=== PATIENT | female | born 1965 | race Caucasian/White ===

== ENCOUNTER 2016-04-03 06:45 | Inpatient (IN) | payer BC, OTHER ==
[~2016-04-03] VITALS: Ht 165.1 cm; Wt 79.0 kg
[~2016-04-03 06:45] MED LIST: DSY100 PO; FIBEPOW PO; FLX5 PO; HMLI SC; Insulin Glargine SC; LCTL45 PO; NVLGIPEN SC; POTA99TA PO
[2016-04-03] MEDS ORDERED: PROCHLORPERAZINE 5 MG/ML 2 ML VIAL IV STA (07:34)
[2016-04-03] MEDS ORDERED: DiphenhydrAMINE HCL 50 MG/ML VIAL IV STA (07:34)
[2016-04-03 07:49] LABS: MEAN CORPUSCULAR HEMOGLOBIN 36.7 pg (25-34); MEAN CORPUSCULAR HGB CONC 36.7 g/dl (32-36)
--- NOTE | 2016-04-03 07:50 | EMERGENCY ROOM VISIT NOTE ---
ED Visit Note First contact with patient: 06:53 This Patient was discussed with the physician horticultural nursery assistant, Chace Pryor PA-C. The pertinent historical and physical exam findings were confirmed. I agree with the studies ordered and with the interpretations of these studies. I agree with the disposition and care plan.
[2016-04-03 07:54] LABS: MEAN PLATELET VOLUME 10.2 fL (7.4-10.4); PLATELET COUNT 55 K/uL (130-400)
[2016-04-03 08:07] LABS: BUN/CREATININE RATIO 28.8 (10-20); CALCIUM 7.8 mg/dl (8.5-10.1); CREATININE 0.74 mg/dl (0.60-1.20); MAGNESIUM 1.9 mg/dl (1.8-2.4); POTASSIUM 3.7 mmol/L (3.5-5.1)
[2016-04-03 08:10] LABS: ALB/GLOB RATIO 1.3 (0.9-2)
[2016-04-03] MEDS ORDERED: COEN150C PO (08:18)
[2016-04-03 08:40] LABS: BASO % 0.7 %; BASO ABS # 0.02 K/uL (0-0.2); COMPLETE YES; EOS % 5.2 %; IG% 0.4 %; LYMPH % 8.1 %; LYMPH ABS # 0.22 K/uL (1.2-3.4); MONO % 6.7 %; NEUT % 78.9 %; VACUOLIZATION 1+
[2016-04-03] MEDS ORDERED: LACTULOSE SYRUP 20 GM/30 ML UDC PO STA (09:31)
[2016-04-03 10:30] VITALS: O2SAT 97; BMI 31.9
[2016-04-03] MEDS ORDERED: ALUMINUM/MAGNESIUM/SIMETH (MAALOX MAX) 30 ML UDC PO PRN (11:15)
[2016-04-03] MEDS ORDERED: GLUCAGON FOR INJ 1 MG VIAL SQ PRN (11:15)
[2016-04-03] MEDS ORDERED: MAGNESIUM HYDROXIDE SUSP 30 ML UDC PO PRN (11:15)
[2016-04-03] MEDS ORDERED: GLUCOSE 10 TABS/TUBE PO PRN (11:15)
[2016-04-03] MEDS ORDERED: POLYETHYLENE (MIRALAX) 17 GM PACK PO PRN (11:15)
[2016-04-03] MEDS ORDERED: CYCLOBENZAPRINE HCL 5 MG TAB PO PRN (11:15)
[2016-04-03] MEDS ORDERED: ONDANSETRON INJ 2 MG/ML 2 ML VIAL IV PRN (11:15)
[2016-04-03] MEDS ORDERED: DEXTROSE 50% 50 ML SYR IV PRN (11:15)
[2016-04-03] MEDS ORDERED: GLUCOSE 40% GEL 15 GM TUBE PO PRN (11:15)
[2016-04-03] MEDS ORDERED: RIFAXIMIN TAB 550 MG TAB PO ONE (11:30)
--- NOTE | 2016-04-03 11:33 | History and Physical ---
History & Physical Date & Time of Service: Apr 03, 2016 at 11:28 Chief Complaint: Nausea,Vomiting,Weakness Primary Care Physician: Mingo Lin M.D. History of Present Illness Source: patient, hospital records Ms. Munson is a 50 y/o female with PMHx of Liver Cirrhosis, Myelodysplastic Syndrome, Seizure Disorder, T2DM, Bipolar Disorder, Hypothyroidism, GERD, HTN, Migraines, S/P Cholecystectomy, and S/P Appendectomy who presents to the ED for vomiting that started at 0500. Patient reports that she felt her normal self prior to going the bed on 04/02/16. She states that around 0500 she started vomiting which then precipitated bilateral lower quadrant tenderness described as cramping in nature. Pain is aggravated by vomiting but has been mildly relieved with Compazine given in ED. Last episode of emesis was in ED and per note was 150 mL of green bile emesis. Ammonia also noted at 263 in ED. She states her last dose of Lactulose was at approx 2000 on 04/02/16 and reports compliance with her BID dosing. She denies taking her AM dose today. Last BM was this AM prior to these symptoms started and was normal in amount and without diarrhea, melena, or hematochezia. She says that she has been having regular bowel movements and denies constipation. Patient is lethargic however speech is coherent and she is oriented to person, place, and time. She is following commands and answers appropriately to questions asked. She reports taking Levaquin approx 7 days ago that was a small course for sinusitis. In the ED, she was hydrated. She was given a dose of Lactulose and Compazine. She will be admitted to telemetry for further evaluation and care. Past Medical/Surgical History Medical Problems: (1) Asthma Status: Chronic (2) Bipol I, Rec Epis (Or Current) Depressed, Unspecified Status: Chronic (3) Cirrhosis Permanent Comment: from nonalcoholic fatty liver disease Status: Chronic (4) Diab Ashley Wo Comp Type Ii Or Nos/Not Uncontrolled Status: Chronic (5) Diabetes Status: Chronic (6) Diabetic gastroparesis Status: Chronic (7) Heart murmur Status: Chronic (8) History of hepatic encephalopathy Status: Chronic (9) Major depressive disorder with psychotic features Permanent Comment: with previous suicide attempts Status: Chronic (10) Migraines Status: Chronic (11) Myelodysplastic syndrome Status: Chronic (12) Pancytopenia Status: Chronic (13) Peptic ulcer disease Status: Chronic (14) Portal Hypertension Status: Chronic (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 Status: Chronic (16) Seizure disorder Permanent Comment: with pseudoseizures Status: Chronic Surgical Problems: (1) H/O nasal septoplasty Status: Chronic (2) History of appendectomy Status: Chronic (3) History of cholecystectomy Status: Chronic (4) History of hysterectomy Status: Chronic (5) History of kyphoplasty Permanent Comment: lumbar Status: Chronic (6) History of tonsillectomy Status: Chronic (7) s/p spinal stimulator placement Status: Chronic Family History Depression Hypertension Social History Smoking Status: Never Smoker Smokeless Tobacco Use: No Alcohol Use: none Drug Use: none Marital Status: Housing status: lives with family Occupational Status: disabled Immunizations History of Influenza Vaccine: Yes Influenza Vaccine Date: Feb 02, 2013 History of Tetanus Vaccine?: utd Tetanus Immunization Date: Jun 11, 2008 History of Pneumococcal: SEE LAST PACKET Pneumococcal Date: Nov 13, 2008 History of Hepatitis B Vaccine: Unknown Hepatitis Immunization Date: Jan 12, 1996 Multi-Drug Resistant Organisms History of MDRO: No Allergies Coded Allergies: Amoxicillin (Verified Allergy, Intermediate, HIVES, 04/03/16) Azithromycin (Verified Allergy, Intermediate, HIVES, 04/03/16) Baclofen (Verified Allergy, Intermediate, RASH, 04/03/16) Butalbital (Verified Allergy, Intermediate, HIVES, 04/03/16) Clarithromycin (Verified Allergy, Intermediate, RASH, 04/03/16) Dicyclomine (Verified Allergy, Intermediate, HIVES, 04/03/16) HIVES Penicillins (Verified Allergy, Intermediate, RASH, 04/03/16) PT STATES SHE GETS WELTS FROM CIPRO,LEVAQUIN ALLERGY PER DR ROBLES Tetracyclines (Verified Allergy, Intermediate, DOXYCYCLINE-HIVES, 04/03/16) Sulindac (Verified Allergy, Mild, ALLERGY LISTED "CLONDORAL"--HIVES, 04/03/16) Adhesives (Verified Allergy, Unknown, RASH, DUODERM=RED,ITCHY, 04/03/16) PLASTIC TAPE IS OK!!! DUODERM=RED,ITCHY Clindamycin (Verified Allergy, Unknown, HIVES, 04/03/16) Metronidazole (Verified Allergy, Unknown, SEIZURE, 04/03/16) Metoclopramide (Verified Adverse Reaction, Severe, SEIZURES, 04/03/16) Furosemide (Verified Adverse Reaction, Unknown, HIVES, 04/03/16) Home Medications Scheduled Ascorbic Acid (Vitamin C), 1 TAB PO DAILY Coenzyme Q10 (Ubidecarenone) (Co Q-10), 150 MG PO DAILY Cranberry-Vitamin C-Vitamin E (Cranberry), 1 CAP PO TID Ferrous Sulfate (Ferrous Sulfate), 325 MG PO DAILY Fluticasone Propionate (Fluticasone Propionate), 1-2 SPRAYS ABRAHAN BID Insulin Lispro (Humalog), 1 DOSE SC UD Lactulose (Lactulose), 30 GM PO BID Lecithin (Lecithin), 1 CAP PO DAILY Levetiracetam (Levetiracetam), 1,500 MG PO BID Levothyroxine Sodium (Levothyroxine Sodium), 75 MCG PO DAILY Magnesium Oxide (Mag-Ox), 400 MG PO TID Multiple Vitamin (Multivitamin), 1 TABLET PO DAILY Omeprazole (Prilosec), 20 MG PO DAILY Oxcarbazepine (Trileptal), 600 MG PO BID Potassium (Potassium), 99 MG PO DAILY Probiotic Product (Probiotic), 1 CAP PO DAILY Ranitidine HCl (Ranitidine HCl), 150 MG PO BID Rifaximin (Xifaxan), 550 MG PO BID Sertraline (Zoloft), 125 MG PO DAILY Sulfacetamide Sodium (Ophth) (Bleph-10), 2 DROPS OPB TID Topiramate (Topiramate), 25 MG PO BID Trazodone HCl (Trazodone HCl), 300 MG PO HS Triamterene/Hctz (Triamterene/Hctz 37.5-25MG), 1 TAB PO DAILY Vitamin A ([id number]), 10,000 INTER.UNIT PO DAILY Zinc Gluconate (Zinc), 50 MG PO BID [Insulin Glargine], 35 UNIT SC DAILY Scheduled PRN Cyclobenzaprine HCl (Cyclobenzaprine HCl), 5 MG PO BID PRN for back pain Epinephrine (Epipen), 0.3 MG IM UD PRN for ALLERGIC REACTION Glucose-Vitamin C (Glucose), 1 CHW PO UD PRN for Hypoglycemia Prochlorperazine Maleate (Compazine), 10 MG PO Q8 PRN for Nausea or Vomiting Rizatriptan Benzoate (Rizatriptan Benzoate), 10 MG PO UD PRN for Headache Review of Systems Constitutional: + weakness (generalized), No chills, No fever, No sweats Eyes: No worsening of vision ENT: No nasal symptoms, No sore throat, No trouble swallowing Respiratory: No cough, No shortness of breath Cardiovascular: No chest pain Abdomen: + pain, + vomiting, No constipation, No diarrhea, No nausea Musculoskeletal: No calf pain, No swelling Genitourinary - Female: No dysuria Endocrine: No fatigue Integumentary: No itch, No rash Physical Exam Vital Signs Date Time Temp Pulse Resp B/P Pulse Ox O2 Delivery O2 Flow Rate FiO2 04/03/16 10:30 97 Room Air 04/03/16 09:54 110 18 129/73 97 Room Air 04/03/16 08:55 94 20 169/144 100 Room Air 04/03/16 06:47 36.9 107 17 110/65 96 Room Air General Appearance: WD/WN, no apparent distress, + pertinent finding (drowsy but speech coherent and answers and follows questions/commands easily) Head: normocephalic, atraumatic Eyes: PERRL, EOMI, sclerae normal ENT: hearing grossly normal Neck: supple, no JVD, trachea midline Respiratory/Chest: lungs clear, normal breath sounds, no respiratory distress, no accessory muscle use, + pertinent finding (Port in R chest without evidence of infection) Cardiovascular: regular rate, rhythm, no gallop, no murmur Abdomen/GI: normal bowel sounds, soft, + tenderness (bilateral lower quadrant tenderness without guarding) Extremities/Musculoskelatal: no calf tenderness, no pedal edema Neurologic/Psych: alert (but lethargic), oriented x 3 Skin: normal color, warm/dry, no rash Diagnostics Laboratory Results Results Past 24 Hours Test 04/03/16 07:30 04/03/16 07:35 04/03/16 07:40 Range/Units White Blood Count 2.70 4.8-10.8 K/uL Red Blood Count 3.30 4.2-5.4 M/uL Hemoglobin 12.1 12.0-16.0 g/dL Hematocrit 33.0 37-47 % Mean Corpuscular Volume 100.0 80-100 fL Mean Corpuscular Hemoglobin 36.7 25-34 pg Mean Corpuscular Hemoglobin Concent 36.7 32-36 g/dl Platelet Count 55 130-400 K/uL Mean Platelet Volume 10.2 7.4-10.4 fL Neutrophils (%) (Auto) 78.9 % Lymphocytes (%) (Auto) 8.1 % Monocytes (%) (Auto) 6.7 % Eosinophils (%) (Auto) 5.2 % Basophils (%) (Auto) 0.7 % Neutrophils # (Auto) 2.13 1.4-6.5 K/uL Lymphocytes # (Auto) 0.22 1.2-3.4 K/uL Monocytes # (Auto) 0.18 0.11-0.59 K/uL Eosinophils # (Auto) 0.14 0-0.5 K/uL Basophils # (Auto) 0.02 0-0.2 K/uL RDW Standard Deviation 46.8 36.4-46.3 fL RDW Coefficient of Variation 12.8 11.5-14.5 % Immature Granulocyte % (Auto) 0.4 % Immature Granulocyte # (Auto) 0.01 0.00-0.02 K/uL Toxic Vacuolation 1+ Sodium Level 143 136-145 mmol/L Potassium Level 3.7 3.5-5.1 mmol/L Chloride Level 108 98-107 mmol/L Carbon Dioxide Level 25 21-32 mmol/L Anion Gap 10.0 3-11 mmol/L Blood Urea Nitrogen 21 7-18 mg/dl Creatinine 0.74 0.60-1.20 mg/dl Est Creatinine Clear Calc Drug Dose 99.1 ml/min Estimated GFR () 109.5 Estimated GFR (Non- 94.5 BUN/Creatinine Ratio 28.8 10-20 Random Glucose 123 70-99 mg/dl Calcium Level 7.8 8.5-10.1 mg/dl Magnesium Level 1.9 1.8-2.4 mg/dl Total Bilirubin 1.7 0.2-1 mg/dl Aspartate Amino Transf (AST/SGOT) 45 15-37 U/L Alanine Aminotransferase (ALT/SGPT) 36 12-78 U/L Alkaline Phosphatase 162 45-117 U/L Total Protein 5.7 6.4-8.2 gm/dl Albumin 3.2 3.4-5.0 gm/dl Globulin 2.5 2.5-4.0 gm/dl Albumin/Globulin Ratio 1.3 0.9-2 Lipase 63 73-393 U/L Ammonia 263.0 11-32 umol/L Influenza Type A Antigen Neg for Influ A NEG Influenza Type B Antigen Neg for Influ B NEG Diagnostic Radiology PA CHEST RADIOGRAPH AND UPRIGHT AND SUPINE AP RADIOGRAPHS OF THE ABDOMEN CLINICAL HISTORY: Evaluate for bowel obstruction. COMPARISON STUDY: Chest radiograph and abdominal series February 16, 2016. FINDINGS: A right internal jugular [id number] remains in place. An electronic device projects over the left hemithorax. Cardiomediastinal silhouette is normal. There is no pneumothorax or pleural effusion. There is no evidence of pulmonary edema. No consolidation is identified. There is no free air. There are cholecystectomy clips. Note is made of moderate gaseous distention of the stomach. A few loops of mildly dilated small bowel are noted. There is gas within portions of the colon and rectum. IMPRESSION: 1. A few loops of mildly dilated small bowel. The findings are nonspecific although not highly suggestive of a small bowel obstruction. 2. Moderate gaseous distention of the stomach. 3. No acute cardiopulmonary findings. Impression Assessment and Plan Ms. Munson is a 50 y/o female with PMHx of Liver Cirrhosis, Myelodysplastic Syndrome, Seizure Disorder, T2DM, Bipolar Disorder, Hypothyroidism, GERD, HTN, Migraines, S/P Cholecystectomy, and S/P Appendectomy who presents to the ED for vomiting that started at 0500. Hepatic Encephalopathy 2/2 Liver Cirrhosis - Hyperammonemia: - Patient with leukopenia that is mildly reduced from baseline - bacterial infection dose not seem likely but will R/O urine as source in setting of previous UTIs but patient is asymptomatic in regards to urinary symptoms; this may be a viral gastroenteritis vs medication non-compliance vs symptoms related to chronic liver cirrhosis - Imaging and Studies -- Ammonia - 263 -- Abd XR/CXR - report and image reviewed - few loops of mildly dilated small bowel not highly suggestive of SBO; moderate gastric distention; no acute cardiopulmonary findings - 1/2 NSS at 100 mL/hr - Lactulose 30 g TID -- Will continue to trend ammonia levels - Rifaxamin 550 mg BID - will give dose now as AM dose missed T2DM: - Patient reports Toujeo 40 units at home - Will initiate Lantus 35 units SC daily as reduce dose for interchange - SSI - goal 100-150 with correction factor 35 - Accu-Checks HTN: - Continue Triamterene/HCTZ 1 tab PO daily Seizure Disorder: - Continue Keppra 1500 mg BID - Continue Trileptal 600 mg PO BID Migraine: - Continue Topamax 25 mg PO BID Bipolar disorder: - Continue Trazodone 300 mg HS Anemia 2/2 Myelodysplastic Syndrome: - Ferrous Sulfate 325 mg PO daily - Continue to trend CBC DVT prophylaxis: - MIRYAM/SCDs - Will withhold chemical prophylaxis in setting of thrombocytopenia 2/2 Myelodysplastic syndrome Code Status: - FULL RESUSCITATION Level of Care Telemetry Advanced Directives Existing Advance Directive: No Existing Living Will: No Existing Power of Custom Protection Officer: No Resuscitation Status FULL RESUSCITATION VTE Prophylaxis VTE Risk Assessment Done? Y/N: Yes Risk Level: Moderate Given or contraindicated: T.E.D. Stockings, SCD's Note Attending Admission Note & Attestation: Pt seen/examined, chart reviewed, and care plan d/w GHULAM Deleon. I agree with the tai components of her admission documentation. 50yo female with cirrhosis 2nd to STEVE, recurrent episodes of hepatic encephalopathy requiring hospital admission (due to noncompliance), T2DM, bipolar disorder - presenting with the acute onset of emesis starting this AM along with abdominal pain. While in the ER she had an episode of emesis that was described as bilious. She has had stool earlier today at home, and had a small BM once admitted to the floor. During my personal assessment she is groggy but otherwise awake, oriented x 3, and can answer all questions. She complains of very mild abdominal discomfort. Denies any further nausea/emesis. Lastly, admission labs show markedly elevated ammonia of >200. PMH, PSH, allergies, meds, sochx, famhx, ros - reviewed vitals - tachy, BP normal, afebrile gen - modestly groggy but awake, oriented, looks very dehydrated mouth - severely dry MM, no thrush neck - no JVD heart - tachy, s1, s2, 2/6 systolic murmur LUSB lungs - CTA b/l abd - mild distension, BS+, NT, spleen tip palpable, no hepatomegaly ext - no edema neuro - severe tremors, pill rolling; asterixis noted labs - pancytopenia BUN 21 ammonia 263 mildly abnormal LFTs rapid flu negative abd x-rays with mildly dilated loops of bowel but air to the rectum (left-sided stool and stool in the rectum) A/P: 1. bilious emesis 2. dehydration 3. hepatic encephalopathy 4. cirrhosis 2nd to STEVE 5. bipolar disorder 6. T2DM keep NPO CT abd/pelvis w/ contrast - r/o obstruction hydrate with NS treat hepatic encephalopathy with lactulose + rifaximin continue bipolar meds if no obstruction on CT then start clear liquid diet total visit time 70 minutes Sammy Haney MD
--- NOTE | 2016-04-03 13:35 | DIAGNOSTIC IMAGING REPORT ---
PA CHEST RADIOGRAPH AND UPRIGHT AND SUPINE AP RADIOGRAPHS OF THE ABDOMEN CLINICAL HISTORY: Evaluate for bowel obstruction. COMPARISON STUDY: Chest radiograph and abdominal series February 16, 2016. FINDINGS: A right internal jugular [id number] remains in place. An electronic device projects over the left hemithorax. Cardiomediastinal silhouette is normal. There is no pneumothorax or pleural effusion. There is no evidence of pulmonary edema. No consolidation is identified. There is no free air. There are cholecystectomy clips. Note is made of moderate gaseous distention of the stomach. A few loops of mildly dilated small bowel are noted. There is gas within portions of the colon and rectum. IMPRESSION: 1. A few loops of mildly dilated small bowel. The findings are nonspecific although not highly suggestive of a small bowel obstruction. 2. Moderate gaseous distention of the stomach. 3. No acute cardiopulmonary findings. Electronically signed by: Rolan Chan M.D. 04/03/2016 1:34 PM
[2016-04-03] MEDS ORDERED: INSULIN GLARGINE SOLOSTAR 100 UNITS/ML 3 ML PEN SC SCH (14:00)
[2016-04-03 14:32] VITALS: BP 118/73; PULSE 85; TEMP 37.4; O2SAT 97
[2016-04-03] MEDS: INSULIN ASPART 100 UNITS/ML 3 ML PEN SC SCH ×2 (17:15→21:00)
[2016-04-03] MEDS: LACTULOSE SYRUP 30 GM/45 ML UDP PO SCH ×2 (17:27→20:54)
[2016-04-03] MEDS: SODIUM CHLORIDE 0.45% 1000ML 1,000 ML IV SCH (17:27)
[2016-04-03] MEDS: MAGNESIUM OXIDE 400 MG TAB PO SCH ×2 (17:27→20:55)
[2016-04-03] MEDS ORDERED: OPTIRAY 320 IV PRN (19:00)
--- NOTE | 2016-04-03 19:27 | DIAGNOSTIC IMAGING REPORT ---
ABDOMEN AND PELVIS CT WITH IV AND ORAL CONTRAST CT DOSE: 1378.78 mGy.cm HISTORY: Nausea. Vomiting. bilious emesis, h/o gastroparesis, eval for SBO TECHNIQUE: Multiaxial CT images of the abdomen and pelvis were performed following the use of intravenous and oral contrast. COMPARISON STUDY: 06/01/2015 FINDINGS: Lung bases are clear. Clavicle early hepatic cirrhosis. Cholecystectomy. Pancreas is uniform. Several prominent upper and mid abdominal varices. This may be secondary to portal hypertension. Bowel pattern is nonobstructive. No evidence for pneumatosis. Mild splenomegaly. Kidneys enhance uniformly. No evidence for hydronephrosis. IMPRESSION: 1. Nonobstructive bowel pattern. 2. Multiple abdominal varices most likely secondary to portal hypertension. 3. Prior cholecystectomy. 4. Early hepatic cirrhotic change with mild splenomegaly Electronically signed by: Kenroy Yates M.D. 04/03/2016 7:25 PM
[2016-04-03 19:59] VITALS: BP 119/71; PULSE 89; TEMP 38; O2SAT 95
[2016-04-03 20:00] VITALS: O2SAT 95
--- NOTE | 2016-04-03 20:03 | EMERGENCY ROOM VISIT NOTE ---
History First contact with patient: 06:56 Chief Complaint: NAUSEA Stated Complaint: HYPERAMMANEMIA Nursing Triage Summary: Pt has been vomiting since 5am today and then developed abd pain. Denies urinary or bowel trouble. History of Present Illness The patient is a 50 year old female who presents to the Emergency Room via private vehicle coming by with complaints of "nausea, vomiting, weakness ankle. The patient has a history of elevated ammonia levels and takes lactulose on a daily basis. She states that today around 5 AM she began vomiting and since then has vomited roughly 12 times. Shortly after that she developed pain in the periumbilical to epigastric region that is associated with the vomiting. There is back pain over the patient states this is not new. Patient states that he had similar symptoms a few days ago but does not believe these are related. Patient denies having similar symptoms to this in the past. The patient did not take her medication yet today. The patient rates the abdominal pain as an 8/10. The patient was able to ambulate here with some help. There is associated diarrhea and vomiting as well as sinus congestion. There is also associated chills. Patient denies blood in the vomit , fevers, headache, chest pain, shortness of breath, dysuria, unilateral weakness or body aches. The patient does have a port which she uses for infusion. Review of Systems A complete 10-point Review of Systems was discussed with the patient, with pertinent positives and negatives listed in the History of Present Illness. All remaining Review of Systems questions can be considered negative unless otherwise specified. 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 (17) Seizure disorder Surgical Problems: (1) H/O nasal septoplasty (2) History of appendectomy (3) History of cholecystectomy (4) History of hysterectomy (5) History of kyphoplasty (6) History of tonsillectomy (7) s/p spinal stimulator placement Family History Depression Hypertension Patient is unsure, noting that she was adopted at 6 weeks of age Social History Smoking Status: Never Smoker Smokeless Tobacco Use: No Alcohol Use: none Drug Use: none Marital Status: Housing Status: lives with significant other Occupation Status: disabled Social History: Patient lives at home with Current/Historical Medications Scheduled Ascorbic Acid (Vitamin C), 1 TAB PO DAILY Coenzyme Q10 (Ubidecarenone) (Co Q-10), 150 MG PO DAILY Cranberry-Vitamin C-Vitamin E (Cranberry), 1 CAP PO TID Ferrous Sulfate (Ferrous Sulfate), 325 MG PO DAILY Fluticasone Propionate (Fluticasone Propionate), 1-2 SPRAYS ABRAHAN BID Insulin Lispro (Humalog), 1 DOSE SC UD Lactulose (Lactulose), 30 GM PO BID Lecithin (Lecithin), 1 CAP PO DAILY Levetiracetam (Levetiracetam), 1,500 MG PO BID Levothyroxine Sodium (Levothyroxine Sodium), 75 MCG PO DAILY Magnesium Oxide (Mag-Ox), 400 MG PO TID Multiple Vitamin (Multivitamin), 1 TABLET PO DAILY Omeprazole (Prilosec), 20 MG PO DAILY Oxcarbazepine (Trileptal), 600 MG PO BID Potassium (Potassium), 99 MG PO DAILY Probiotic Product (Probiotic), 1 CAP PO DAILY Ranitidine HCl (Ranitidine HCl), 150 MG PO BID Rifaximin (Xifaxan), 550 MG PO BID Sertraline (Zoloft), 125 MG PO DAILY Sulfacetamide Sodium (Ophth) (Bleph-10), 2 DROPS OPB TID Topiramate (Topiramate), 25 MG PO BID Trazodone HCl (Trazodone HCl), 300 MG PO HS Triamterene/Hctz (Triamterene/Hctz 37.5-25MG), 1 TAB PO DAILY Vitamin A ([id number]), 10,000 INTER.UNIT PO DAILY Zinc Gluconate (Zinc), 50 MG PO BID [Insulin Glargine], 35 UNIT SC DAILY Scheduled PRN Cyclobenzaprine HCl (Cyclobenzaprine HCl), 5 MG PO BID PRN for back pain Epinephrine (Epipen), 0.3 MG IM UD PRN for ALLERGIC REACTION Glucose-Vitamin C (Glucose), 1 CHW PO UD PRN for Hypoglycemia Prochlorperazine Maleate (Compazine), 10 MG PO Q8 PRN for Nausea or Vomiting Rizatriptan Benzoate (Rizatriptan Benzoate), 10 MG PO UD PRN for Headache Allergies Coded Allergies: Amoxicillin (Verified Allergy, Intermediate, HIVES, 04/03/16) Azithromycin (Verified Allergy, Intermediate, HIVES, 04/03/16) Baclofen (Verified Allergy, Intermediate, RASH, 04/03/16) Butalbital (Verified Allergy, Intermediate, HIVES, 04/03/16) Clarithromycin (Verified Allergy, Intermediate, RASH, 04/03/16) Dicyclomine (Verified Allergy, Intermediate, HIVES, 04/03/16) HIVES Penicillins (Verified Allergy, Intermediate, RASH, 04/03/16) PT STATES SHE GETS WELTS FROM CIPRO,LEVAQUIN ALLERGY PER DR ROBLES Tetracyclines (Verified Allergy, Intermediate, DOXYCYCLINE-HIVES, 04/03/16) Sulindac (Verified Allergy, Mild, ALLERGY LISTED "CLONDORAL"--HIVES, 04/03/16) Adhesives (Verified Allergy, Unknown, RASH, DUODERM=RED,ITCHY, 04/03/16) PLASTIC TAPE IS OK!!! DUODERM=RED,ITCHY Clindamycin (Verified Allergy, Unknown, HIVES, 04/03/16) Metronidazole (Verified Allergy, Unknown, SEIZURE, 04/03/16) Metoclopramide (Verified Adverse Reaction, Severe, SEIZURES, 04/03/16) Furosemide (Verified Adverse Reaction, Unknown, HIVES, 04/03/16) Physical Exam Vital Signs Date Time Temp Pulse Resp B/P Pulse Ox O2 Delivery O2 Flow Rate FiO2 04/03/16 10:30 97 Room Air 04/03/16 09:54 110 18 129/73 97 Room Air 04/03/16 08:55 94 20 169/144 100 Room Air 04/03/16 06:47 36.9 107 17 110/65 96 Room Air Pain Rating (0-10): 0 Physical Exam VITAL SIGNS - Vital signs and nursing notes were reviewed. Patient is afebrile , not hypertensive, slightly tachycardic at a rate of 107 beats per minute, and saturating well on room air at 96 bpm. GENERAL -50-year-old female appearing her stated age who is in no acute distress. Communicates well with provider and answers questions appropriately. SKIN - Without rashes. HEAD - NC/AT. EYES - PERRL with EOMI bilaterally. Sclera anicteric. Palpebral conjunctiva pink and moist with no injection noted. EARS - No deformities of external structures noted on gross examination bilaterally. NOSE - Midline and without cyanosis. No epistaxis or purulent drainage noted. Septum midline without deviation or septal hematoma noted. MOUTH/OROPHARYNX - Without perioral cyanosis. Buccal mucosa pink and moist and without leukoplakia. Tongue midline with equal elevation of palate bilaterally. No tonsillar hypertrophy, erythema, or exudates noted. NECK - Neck with FROM. Supple to palpation. No lymphadenopathy noted. No nuchal rigidity. LUNGS - Chest wall symmetric without accessory muscle use, intercostals retractions, or central cyanosis. Normal vesicular breath sounds CTA B/L. No wheezes, rales, or rhonchi appreciated. CARDIAC - RRR with S1/S2. No murmur, rubs, or gallops appreciated. ABDOMEN - Abdominal contour without pulsations or visible masses. BS normoactive all four quadrants. There is minimal tenderness to the epigastric/ . The local region No palpable masses, hepatosplenomegaly, or ascites noted. The abdomen is soft and nonrigid. EXTREMITIES - No clubbing or peripheral cyanosis. No pretibial edema present. + 5/5 strength noted in UE/LE bilaterally. NEUROLOGIC - Cranial nerves II through XII grossly intact. Sensory intact to light touch throughout. PSYCH - patient is alert and oriented. Pt is very pleasant and interacts well with examiner. Medical Decision & Procedures Laboratory Results 04/03/16 07:30 Red Blood Count 3.30, Mean Corpuscular Volume 100.0, Mean Corpuscular Hemoglobin 36.7, Mean Corpuscular Hemoglobin Concent 36.7, Mean Platelet Volume 10.2, Neutrophils (%) (Auto) 78.9, Lymphocytes (%) (Auto) 8.1, Monocytes (%) ( Auto) 6.7, Eosinophils (%) (Auto) 5.2, Basophils (%) (Auto) 0.7, Neutrophils # ( Auto) 2.13, Lymphocytes # (Auto) 0.22, Monocytes # (Auto) 0.18, Eosinophils # ( Auto) 0.14, Basophils # (Auto) 0.02 04/03/16 07:30 Test 04/03/16 07:30 04/03/16 07:40 White Blood Count 2.70 K/uL (4.8-10.8) Red Blood Count 3.30 M/uL (4.2-5.4) Hemoglobin 12.1 g/dL (12.0-16.0) Hematocrit 33.0 % (37-47) Mean Corpuscular Volume 100.0 fL (80-100) Mean Corpuscular Hemoglobin 36.7 pg (25-34) Mean Corpuscular Hemoglobin Concent 36.7 g/dl (32-36) Platelet Count 55 K/uL (130-400) Mean Platelet Volume 10.2 fL (7.4-10.4) Neutrophils (%) (Auto) 78.9 % Lymphocytes (%) (Auto) 8.1 % Monocytes (%) (Auto) 6.7 % Eosinophils (%) (Auto) 5.2 % Basophils (%) (Auto) 0.7 % Neutrophils # (Auto) 2.13 K/uL (1.4-6.5) Lymphocytes # (Auto) 0.22 K/uL (1.2-3.4) Monocytes # (Auto) 0.18 K/uL (0.11-0.59) Eosinophils # (Auto) 0.14 K/uL (0-0.5) Basophils # (Auto) 0.02 K/uL (0-0.2) RDW Standard Deviation 46.8 fL (36.4-46.3) RDW Coefficient of Variation 12.8 % (11.5-14.5) Immature Granulocyte % (Auto) 0.4 % Immature Granulocyte # (Auto) 0.01 K/uL (0.00-0.02) Toxic Vacuolation 1+ Anion Gap 10.0 mmol/L (3-11) Est Creatinine Clear Calc Drug Dose 99.1 ml/min Estimated GFR () 109.5 Estimated GFR (Non- 94.5 BUN/Creatinine Ratio 28.8 (10-20) Calcium Level 7.8 mg/dl (8.5-10.1) Magnesium Level 1.9 mg/dl (1.8-2.4) Total Bilirubin 1.7 mg/dl (0.2-1) Aspartate Amino Transf (AST/SGOT) 45 U/L (15-37) Alanine Aminotransferase (ALT/SGPT) 36 U/L (12-78) Alkaline Phosphatase 162 U/L (45-117) Total Protein 5.7 gm/dl (6.4-8.2) Albumin 3.2 gm/dl (3.4-5.0) Globulin 2.5 gm/dl (2.5-4.0) Albumin/Globulin Ratio 1.3 (0.9-2) Lipase 63 U/L (73-393) Influenza Type A Antigen Neg for Influ A (NEG) Influenza Type B Antigen Neg for Influ B (NEG) Medications Administered Medications (Trade) Dose Ordered Sig/Danita Route Start Time Stop Time Status Last Admin Dose Admin Prochlorperazine Edisylate (Compazine Inj) 10 mg NOW STAT IV 04/03/16 07:34 04/03/16 07:35 DC 04/03/16 07:48 10 MG Diphenhydramine HCl (Benadryl Inj) 25 mg NOW STAT IV 04/03/16 07:34 04/03/16 07:35 DC 04/03/16 07:48 25 MG Lactulose (Chronulac Syrup) 30 gm NOW STAT PO 04/03/16 09:31 04/03/16 09:34 DC 04/03/16 09:53 30 GM Medical Decision Patient was seen and evaluated as above. After obtaining a thorough history and physical examination port was accessed and a CBC, CMP, flu swab was obtained secondary to subjective and objective examination findings. I was concerned that the patient had elevated ammonia levels as they were previously hospitalized for such. The patient was provided with 10 mg of Compazine and 25 mg of Benadryl for her nausea. She indicated that she typically feels better after Compazine. There is a decreased white blood cell count at 2.70 as well as decreased red blood cell count at 3.30. Hematocrit was also low at 33. Hemoglobin is stable at 12.1. Platelet count is low at 55. Patient's chloride was elevated at 108, and BUN was high at 21. Glucose was 123 and calcium was low at 7.8. Patient's alkaline phosphatase was elevated at 162 with a concerning ammonia level of 263. Due to the elevated ammonia level, that appeared to be the highest the patient had experienced in quite some time I did feel she could benefit from inpatient treatment. I did discuss the case with my attending, and the patient was given 30 mg by mouth of lactulose. This was given as a syrup and mixed with apple juice as per the patient's request. Flu swab was negative. I suspect the patient is experiencing hyperammonemia as this is her most recent diagnosis and with clinical correlation and lab values this is most likely at this time. I did discuss the case with the hospitalist at 9:58 AM. Patient will be admitted for further evaluation and management. Please refer to further hospital documentation regarding her stay. In the evaluation and treatment of this patient the following differential diagnoses were entertained: hyperammonemia, pancreatitis, small bowel obstruction, acute gastroenteritis, among others. Impression Primary Impression: Hyperammonemia Additional Impressions: Leukopenia, Anemia, Alkaline phosphatase elevation Departure Information Dispostion Admitted as an inpatient Condition FAIR Referrals Mingo Lin M.D. (PCP) Forms HOME CARE DOCUMENTATION FORM, IMPORTANT VISIT INFORMATION Patient Instructions A Signature Page, My [facility]
[2016-04-03] MEDS: FLUTICASONE PROPIONATE NA SPR 16 GM BTL NAE SCH (20:53)
[2016-04-03] MEDS: TRAZODONE HCL 100 MG TAB PO SCH (20:54)
[2016-04-03] MEDS: LEVETIRACETAM 500 MG TAB PO SCH (20:55)
[2016-04-03] MEDS: TOPIRAMATE 25 MG TAB PO SCH (20:56)
[2016-04-03] MEDS: OXCARBAZEPINE 150 MG TAB PO SCH (20:56)
[2016-04-03] MEDS: RANITIDINE HCL 150 MG TAB PO SCH (20:58)
[2016-04-03] MEDS ORDERED: INSULIN GLARGINE PER UNIT 35 UNITS in SYRINGE 0 ML SC SCH (21:00)
[2016-04-03] MEDS: RIFAXIMIN TAB 550 MG TAB PO SCH (22:45)
[2016-04-04 00:11] VITALS: BP 112/59; PULSE 85; TEMP 37.7; O2SAT 97
[2016-04-04 02:05] LABS: INFLUENZA A PCR Neg for Influ A (NEG); INFLUENZA B PCR Neg for Influ B (NEG)
[2016-04-04 03:36] VITALS: BP 108/66; PULSE 81; TEMP 37; O2SAT 95
[2016-04-04] MEDS: SODIUM CHLORIDE 0.45% 1000ML 1,000 ML IV SCH (04:24)
[2016-04-04] MEDS: LEVOTHYROXINE 75 MCG TAB PO SCH (06:23)
[2016-04-04 07:35] LABS: HEMATOCRIT 25.9 % (37-47); MEAN CORPUSCULAR HEMOGLOBIN 35.9 pg (25-34); MEAN CORPUSCULAR HGB CONC 35.9 g/dl (32-36); RED BLOOD COUNT 2.59 M/uL (4.2-5.4); WHITE BLOOD COUNT 2.12 K/uL (4.8-10.8)
[2016-04-04 07:41] LABS: MEAN PLATELET VOLUME 9.4 fL (7.4-10.4); PLATELET COUNT 50 K/uL (130-400)
[2016-04-04 08:00] VITALS: BP 115/68; PULSE 75; TEMP 36.9; O2SAT 94
[2016-04-04 08:02] LABS: BASO % 0.5 %; BASO ABS # 0.01 K/uL (0-0.2); COMPLETE YES; EOS % 5.2 %; ESTIMATED AVERAGE GLUCOSE 74 mg/dl; HA1C FLAG Normal (Normal); LYMPH % 20.3 %; LYMPH ABS # 0.43 K/uL (1.2-3.4); MONO % 13.7 %; NEUT % 60.3 %
[2016-04-04 08:12] LABS: BUN/CREATININE RATIO 29.6 (10-20); CALCIUM 7.1 mg/dl (8.5-10.1); CREATININE 0.5 mg/dl (0.60-1.20); MAGNESIUM 1.7 mg/dl (1.8-2.4); POTASSIUM 3.2 mmol/L (3.5-5.1)
[2016-04-04 08:36] LABS: URINE APPEARANCE CLEAR (CLEAR); URINE BILIRUBIN NEG (NEG); URINE COLOR DK YELLOW; URINE NITRITE NEG (NEG); URINE SPECIFIC GRAVITY > 1.045 (1.000-1.030); UROBILINOGEN NEG (NEG)
[2016-04-04 08:41] LABS: MANUAL MICROSCOPIC REQUIRED? NO; REVIEW REQ? YES
[2016-04-04] MEDS ORDERED: TRIAMTERENE/HCTZ 37.5/25MG TAB PO SCH (09:00)
[2016-04-04] MEDS ORDERED: FERROUS SULFATE 325 MG TAB PO SCH (09:00)
[2016-04-04] MEDS ORDERED: MELOXICAM 7.5 MG TAB PO ONE (09:12)
[2016-04-04] MEDS: INSULIN ASPART 100 UNITS/ML 3 ML PEN SC SCH ×4 (09:33→21:19)
[2016-04-04] MEDS: FLUTICASONE PROPIONATE NA SPR 16 GM BTL NAE SCH ×2 (09:33→21:18)
[2016-04-04] MEDS: LACTULOSE SYRUP 30 GM/45 ML UDP PO SCH ×2 (09:34→13:40)
[2016-04-04] MEDS: LEVETIRACETAM 500 MG TAB PO SCH ×2 (09:35→21:17)
[2016-04-04] MEDS: MAGNESIUM OXIDE 400 MG TAB PO SCH ×3 (09:35→21:18)
[2016-04-04] MEDS: TOPIRAMATE 25 MG TAB PO SCH ×2 (09:36→21:18)
[2016-04-04] MEDS: OXCARBAZEPINE 150 MG TAB PO SCH ×2 (09:37→21:18)
[2016-04-04] MEDS: RANITIDINE HCL 150 MG TAB PO SCH ×2 (09:38→21:17)
[2016-04-04] MEDS: RIFAXIMIN TAB 550 MG TAB PO SCH ×2 (09:38→21:17)
[2016-04-04] MEDS: SERTRALINE HCL 50 MG TAB PO SCH (09:39)
[2016-04-04] MEDS: POTASSIUM CHLORIDE INJ 40 MEQ in SODIUM CHLORIDE 0.45% 1000ML 1,000 ML IV SCH ×2 (09:49→19:32)
[2016-04-04 11:54] VITALS: BP 124/69; PULSE 97; TEMP 36.7; O2SAT 96
[2016-04-04] MEDS: PROCHLORPERAZINE MALEATE 10 MG TAB PO PRN (13:40)
[2016-04-04 13:41] VITALS: Ht 165.1 cm; Wt 79.0 kg
[2016-04-04 16:00] VITALS: BP 132/81; PULSE 67; TEMP 36.9; O2SAT 99
--- NOTE | 2016-04-04 16:24 | Progress Note ---
Subjective Date of Service: Apr 04, 2016. (Elisa Deleon, AMARILISC) Subjective Pt evaluation today including: conversation w/ patient, physical exam, chart review, lab review, review of studies, review of inpatient medication list Patient seen and evaluated. Noted hypoglycemia this AM. HbA1c only 4.2 Patient continues to appear lethargic but speech is coherent and she is oriented. Ammonia levels have markedly improved from 263...185...86. Has had multiple bowel movements She reports her abdominal pain has resolved only complains of chronic back pain that she reports taking Mobic for. Urine with small leuks and 1+ bacteria but does not verbalize any urinary complaints at this time. (Elisa Deleon, AMARILISC) Problem List Medical Problems: (1) Alkaline phosphatase elevation Status: Acute (2) Anemia Status: Acute (3) Back pain Status: Acute (4) Bradycardia Status: Acute (5) Breakthrough seizure Status: Acute (6) Burn Status: Acute (7) Change in mental status Status: Acute (8) Change in mental status Status: Acute (9) Closed head injury Status: Acute (10) Dehydration Status: Acute (11) Dizziness Status: Acute (12) Facial laceration Status: Acute (13) Fall Status: Acute (14) Fatigue Status: Acute (15) Hemorrhoid Status: Acute (16) Hepatic encephalopathy Status: Acute (17) Hepatic encephalopathy Status: Acute (18) Hepatic encephalopathy Status: Acute (19) Hepatic encephalopathy Status: Acute (20) Hepatic encephalopathy Status: Acute (21) Hepatic encephalopathy Status: Acute (22) Hepatic encephalopathy Status: Acute (23) Hyperammonemia Status: Acute (24) Hyperammonemia Status: Acute (25) Hyperammonemia Status: Acute (26) Hyperammonemia Status: Acute (27) Hyperammonemia Status: Acute (28) Hypomagnesemia Status: Acute (29) Increased ammonia level Status: Acute (30) Left foot pain Status: Acute (31) Leukopenia Status: Acute (32) Pancytopenia Status: Acute (33) Right ear pain Status: Acute (34) Right groin pain Status: Acute (35) Right hip pain Status: Acute (36) RUQ abdominal pain Status: Acute (37) Weakness Status: Acute (38) Weakness Status: Acute (39) Weakness Status: Acute (40) Weakness Status: Acute (Elisa Deleon PA-C) Review of Systems Constitutional: No chills, No fever Respiratory: No shortness of breath Cardiac: No chest pain Abdomen: + diarrhea, No constipation, No nausea, No pain, No vomiting Musculoskeletal: + problem reported (chronic back pain) Female : No dysuria, No urinary frequency Skin: No rash (Elisa Deleon PA-C) Medications Current Inpatient Medications Medications (Trade) Dose Ordered Sig/Danita Route Start Time Stop Time Status Last Admin Dose Admin Fluticasone Propionate (Flonase Nasal [place]) 2 sprays BID ABRAHAN 04/03/16 21:00 05/03/16 20:59 04/04/16 09:33 2 SPRAYS Levothyroxine Sodium (Synthroid Tab) 75 mcg DAILYBB PO 04/04/16 06:30 05/04/16 06:59 Magnesium Oxide (Mag-Ox Tab) 400 mg TID PO 04/03/16 14:00 05/03/16 13:59 04/04/16 13:40 400 MG Oxcarbazepine (Trileptal Tab) 600 mg BID PO 04/03/16 21:00 05/03/16 20:59 04/04/16 09:37 600 MG Prochlorperazine Maleate (Compazine Tab) 10 mg Q8 PRN PO 04/03/16 11:15 05/03/16 11:14 04/04/16 13:40 10 MG Ranitidine HCl (zANTac TAB) 150 mg BID PO 04/03/16 21:00 05/03/16 20:59 04/04/16 09:38 150 MG Rifaximin (Xifaxan Tab) 550 mg BID PO 04/03/16 21:00 05/03/16 20:59 04/04/16 09:38 550 MG Sertraline HCl (Zoloft Tab) 125 mg DAILY PO 04/04/16 09:00 05/04/16 08:59 04/04/16 09:39 125 MG Topiramate (Topamax Tab) 25 mg BID PO 04/03/16 21:00 05/03/16 20:59 04/04/16 09:36 25 MG Levetiracetam (Keppra Tab) 1,500 mg BID PO 04/03/16 21:00 05/03/16 20:59 04/04/16 09:35 1,500 MG Al Hydrox/Mg Hydrox/Simethicone (Maalox Max Susp) 15 ml Q4H PRN PO 04/03/16 11:15 05/03/16 11:14 Magnesium Hydroxide (Milk Of Magnesia Susp) 30 ml Q12H PRN PO 04/03/16 11:15 05/03/16 11:14 Ondansetron HCl (Zofran Inj) 4 mg Q6H PRN IV 04/03/16 11:15 05/03/16 11:14 Polyethylene (Miralax Powder Packet) 17 gm DAILY PRN PO 04/03/16 11:15 05/03/16 11:14 Insulin Aspart (novoLOG ASPART) SLIDING SCALE If C... ACHS SC 04/03/16 16:00 05/03/16 15:59 04/03/16 17:15 1 UNITS Glucose (Glucose 40% Gel) 15-30 GRAMS 15 GRAMS... UD PRN PO 04/03/16 11:15 05/03/16 11:14 Glucose (Glucose Chew Tab) 4-8 Tablets 4 Tabl... UD PRN PO 04/03/16 11:15 05/03/16 11:14 Dextrose (Dextrose 50% 50ML Syringe) 25-50ML OF 50% DW IV FOR... UD PRN IV 04/03/16 11:15 05/03/16 11:14 Glucagon (Glucagon Inj) 1 mg UD PRN SQ 04/03/16 11:15 05/03/16 11:14 Lactulose (Chronulac Syrup) 30 gm TID PO 04/03/16 14:00 05/03/16 13:59 04/04/16 13:40 30 GM Insulin Glargine (Lantus Solostar Pen) 35 unit DAILY SC 04/03/16 14:00 05/03/16 13:59 Future Hold 04/03/16 17:14 35 UNIT Trazodone HCl (Desyrel Tab) 300 mg HS PO 04/03/16 21:00 05/03/16 20:59 04/03/16 20:54 300 MG Ioversol 100 ml 100 ml UD PRN IV 04/03/16 19:00 04/07/16 18:59 Potassium Chloride/Sodium Chloride (KCl Inj/04/01 Nss 1000ml) 1,020 ml @ 100 mls/hr [id number] IV 04/04/16 09:30 05/04/16 09:29 04/04/16 09:49 100 MLS/HR Meloxicam (Mobic Tab) 7.5 mg QAM PO 04/05/16 09:00 05/05/16 08:59 (Elisa Deleon PA-C) Objective Vital Signs Date Time Temp Pulse Resp B/P Pulse Ox O2 Delivery O2 Flow Rate FiO2 04/04/16 12:00 Room Air 04/04/16 11:54 36.7 97 20 124/69 96 Room Air 04/04/16 08:00 36.9 75 18 115/68 94 Room Air 04/04/16 08:00 Room Air 04/04/16 04:00 Room Air 04/04/16 03:36 37.0 81 22 108/66 95 Room Air 04/04/16 00:11 37.7 85 22 112/59 97 Room Air 04/04/16 00:00 Room Air 04/03/16 20:00 95 Room Air 04/03/16 19:59 38.0 89 20 119/71 95 Room Air (Elisa Deleon PA-C) Physical Exam General Appearance: WD/WN, no apparent distress, + pertinent finding (alert but lethargic) Eyes: sclerae normal ENT: hearing grossly normal Neck: supple, no JVD, trachea midline Respiratory/Chest: lungs clear, no respiratory distress, no accessory muscle use, + decreased breath sounds (bases bilat) Cardiovascular: regular rate, rhythm, no gallop, no murmur Abdomen: normal bowel sounds, non tender, soft Extremities: no pedal edema, no calf tenderness Neurologic/Psychiatric: alert, oriented x 3 Skin: normal color, warm/dry (Elisa Deleon PA-C) Laboratory Results Last 24 Hours Test 04/03/16 16:44 04/03/16 20:43 04/04/16 00:00 04/04/16 00:00 Ammonia 185.0 umol/L Bedside Glucose 131 mg/dl Influenza Type A (RT-PCR) Neg for Influ A Influenza Type B (RT-PCR) Neg for Influ B Urine Color DK YELLOW Urine Appearance CLEAR Urine pH 6.0 Urine Specific [place] > 1.045 Urine Protein NEG Urine Glucose (UA) NEG Urine Ketones NEG Urine Occult Blood TRACE Urine Nitrite NEG Urine Bilirubin NEG Urine Urobilinogen NEG Urine Leukocyte Esterase SMALL Urine WBC (Auto) 10-30 /hpf Urine RBC (Auto) 0-4 /hpf Urine Hyaline Casts (Auto) 0 /lpf Urine Epithelial Cells (Auto) 10-20 /lpf Urine Bacteria (Auto) 1+ Urine Yeast (Auto) Test 04/04/16 07:25 04/04/16 07:52 04/04/16 08:24 04/04/16 11:31 White Blood Count 2.12 K/uL Red Blood Count 2.59 M/uL Hemoglobin 9.3 g/dL Hematocrit 25.9 % Mean Corpuscular Volume 100.0 fL Mean Corpuscular Hemoglobin 35.9 pg Mean Corpuscular Hemoglobin Concent 35.9 g/dl Platelet Count 50 K/uL Mean Platelet Volume 9.4 fL Neutrophils (%) (Auto) 60.3 % Lymphocytes (%) (Auto) 20.3 % Monocytes (%) (Auto) 13.7 % Eosinophils (%) (Auto) 5.2 % Basophils (%) (Auto) 0.5 % Neutrophils # (Auto) 1.28 K/uL Lymphocytes # (Auto) 0.43 K/uL Monocytes # (Auto) 0.29 K/uL Eosinophils # (Auto) 0.11 K/uL Basophils # (Auto) 0.01 K/uL RDW Standard Deviation 46.6 fL RDW Coefficient of Variation 12.7 % Immature Granulocyte % (Auto) 0.0 % Immature Granulocyte # (Auto) 0.00 K/uL Red Blood Cell Morphology Unremarkable Sodium Level 141 mmol/L Potassium Level 3.2 mmol/L Chloride Level 107 mmol/L Carbon Dioxide Level 27 mmol/L Anion Gap 7.0 mmol/L Blood Urea Nitrogen 15 mg/dl Creatinine 0.50 mg/dl Est Creatinine Clear Calc Drug Dose 138.6 ml/min Estimated GFR () 130.8 Estimated GFR (Non- 112.9 BUN/Creatinine Ratio 29.6 Random Glucose 52 mg/dl Estimated Average Glucose 74 mg/dl Hemoglobin A1c 4.2 % Calcium Level 7.1 mg/dl Magnesium Level 1.7 mg/dl Ammonia 86.0 umol/L Bedside Glucose 65 mg/dl 105 mg/dl 137 mg/dl (Elisa Deleon, PALindaC) Assessment and Plan Ms. Munson is a 50 y/o female with PMHx of Liver Cirrhosis, Myelodysplastic Syndrome, Seizure Disorder, T2DM, Bipolar Disorder, Hypothyroidism, GERD, HTN, Migraines, S/P Cholecystectomy, and S/P Appendectomy who presents to the ED for vomiting that started at 0500. Hepatic Encephalopathy 2/2 Liver Cirrhosis - Hyperammonemia and Dehydration: - Patient with leukopenia that is mildly reduced from baseline - U/A with 1+ bacteria but patient is asymptomatic in regards to urinary symptoms; this may be a viral gastroenteritis vs medication non-compliance vs symptoms related to chronic liver cirrhosis - Imaging and Studies -- Ammonia trending down - 263...185...86 -- Abd XR/CXR - few loops of mildly dilated small bowel not highly suggestive of SBO; moderate gastric distention; no acute cardiopulmonary findings -- Abd CT - no evidence of bowel obstruction; abdominal varices; cirrhotic change with mild splenomegaly - Will collect C. Diff toxin - given symptoms with low grade fever noted will rule out - Patient did report recent Abx use for sinusitis - 1/2 NSS at 100 mL/hr - Lactulose 30 g TID -- Will continue to trend ammonia levels - Rifaxamin 550 mg BID Hypomagnesemia and Hypokalemia: - Replete - Continue monitoring with BMP T2DM: - Patient reports Toujeo 40 units at home - Patient with hypoglycemic reading this AM - will hold Lantus -- In setting of Alc at 4.2 will monitor glucose to determine necessity - Continue SSI - goal 100-150 with correction factor 35 - Accu-Checks HTN: - Continue Triamterene/HCTZ 1 tab PO daily Seizure Disorder: - Continue Keppra 1500 mg BID - Continue Trileptal 600 mg PO BID Migraine: - Continue Topamax 25 mg PO BID Bipolar disorder: - Continue Trazodone 300 mg HS Anemia 2/2 Myelodysplastic Syndrome: - Will hold in setting up GI complaints Ferrous Sulfate 325 mg PO daily - Continue to trend CBC Chronic Back Pain: - Mobic 7.5 mg daily DVT prophylaxis: - MIRYAM/SCDs - Will withhold chemical prophylaxis in setting of thrombocytopenia 2/2 Myelodysplastic syndrome Code Status: - FULL RESUSCITATION (AdrienneElisa gould PA-C) Attending Attestation: Pt seen/examined, chart reviewed, and care plan d/w GHULAM Deleon. I agree w/ the tai components of her documentation. Pt c/o frequent loose stools. Denies abd pain. Denies any nausea. Tolerating clears and wishes for diet to be advanced. VSS, Tm 38, now afebrile gen - more awake, alert and better hydrated today mouth - MM more moist today heart - RRR, s1, s2 lungs - CTA b/l abd - soft, NT, ND, spleen tip palpable ext - no edema skin - no rash neuro - asterixis resolved labs - K 3.2 mag 1.7 Cr stable BUN improved cbc - stable ammonia into the 80s A/P: 1. bilious vomiting - resolved; CT abd/pelvis w/o obstruction due to gastroparesis? with low grade fever...gastroenteritis? 2. hepatic encephalopathy - resolved clinically titrate lactulose for 2-3 BMs/day cont rifaximin 3. fever - cause uncertain. u/a not suggestive of UTI. no pneumonia on cxr. flu test negative viral gastroenteritis?? follow. 4. resume all home oral medications (topamax, trazodone, etc) Charlene HANEY MD (Sammy Haney MD)
[2016-04-04 19:14] VITALS: BP 119/72; PULSE 66; TEMP 37; O2SAT 96
[2016-04-04] MEDS ORDERED: ACETAMINOPHEN IV 100 ML IV ONE (20:15)
[2016-04-04] MEDS: TRAZODONE HCL 100 MG TAB PO SCH (21:18)
[2016-04-05] VITALS (8 sets, daily range): BP systolic 110–126; BP diastolic 61–77; PULSE 60–71; TEMP 36.5–36.7; O2SAT 96–99
[2016-04-05] MEDS: POTASSIUM CHLORIDE INJ 40 MEQ in SODIUM CHLORIDE 0.45% 1000ML 1,000 ML IV SCH (05:53)
[2016-04-05] MEDS: LEVOTHYROXINE 75 MCG TAB PO SCH (05:53)
[2016-04-05 06:12] LABS: HEMATOCRIT 25.1 % (37-47); MEAN CELL VOLUME 99.6 fL (80-100); MEAN CORPUSCULAR HEMOGLOBIN 36.5 pg (25-34); MEAN CORPUSCULAR HGB CONC 36.7 g/dl (32-36); MEAN PLATELET VOLUME 10.1 fL (7.4-10.4); PLATELET COUNT 45 K/uL (130-400); RED BLOOD COUNT 2.52 M/uL (4.2-5.4); WHITE BLOOD COUNT 2.04 K/uL (4.8-10.8)
[2016-04-05] MEDS: INSULIN ASPART 100 UNITS/ML 3 ML PEN SC SCH ×2 (06:30→12:14)
[2016-04-05 06:31] LABS: BASO % 0.5 %; BASO ABS # 0.01 K/uL (0-0.2); COMPLETE YES; EOS % 9.8 %; IG% 0.5 %; LYMPH ABS # 0.55 K/uL (1.2-3.4); MONO % 13.2 %
[2016-04-05 06:46] LABS: BUN/CREATININE RATIO 22.8 (10-20); CREATININE 0.41 mg/dl (0.60-1.20); MAGNESIUM 1.7 mg/dl (1.8-2.4); POTASSIUM 4.1 mmol/L (3.5-5.1)
[2016-04-05] MEDS ORDERED: MELOXICAM 7.5 MG TAB PO SCH (09:00)
[2016-04-05] MEDS ORDERED: BENZTROPINE MESYLATE 0.5 MG TAB PO SCH ×2 (09:00→14:00)
[2016-04-05] MEDS ORDERED: LACTULOSE SYRUP 30 GM/45 ML UDP PO SCH (09:00)
[2016-04-05] MEDS: FLUTICASONE PROPIONATE NA SPR 16 GM BTL NAE SCH (09:06)
[2016-04-05] MEDS: PROCHLORPERAZINE MALEATE 10 MG TAB PO PRN (09:07)
[2016-04-05] MEDS: TOPIRAMATE 25 MG TAB PO SCH (09:08)
[2016-04-05] MEDS: OXCARBAZEPINE 150 MG TAB PO SCH (09:08)
[2016-04-05] MEDS: SERTRALINE HCL 50 MG TAB PO SCH (09:09)
[2016-04-05] MEDS: RANITIDINE HCL 150 MG TAB PO SCH (09:09)
[2016-04-05] MEDS: LEVETIRACETAM 500 MG TAB PO SCH (09:09)
[2016-04-05] MEDS: RIFAXIMIN TAB 550 MG TAB PO SCH (09:09)
[2016-04-05] MEDS: MAGNESIUM OXIDE 400 MG TAB PO SCH ×2 (09:10→14:06)
[2016-04-05] MEDS ORDERED: TRIAMTERENE/HCTZ 37.5/25MG TAB PO SCH (10:00)
[2016-04-05] MEDS ORDERED: RIZATRIPTAN BENZOATE 10 MG TAB PO PRN (11:00)
--- NOTE | 2016-04-05 13:49 | Discharge Instructions ---
Discharge Instructions Admission Reason for Admission: Hyperammanemia (Elisa Deleon PA-C) Discharge Discharge Diagnosis / Problem: Hyperammonemia (Elisa Deleon PA-C) Discharge Goals Goal(s): Increase independence, Learn about illness, Therapeutic intervention (Elisa Deleon PA-C) Activity Recommendations Activity Limitations: as noted below Lifting Limitations: gradually increase as tolerated Exercise/Sports Limitations: gradually increase as tolerated May Resume Sexual Activity: when tolerated Shower/Bathe: no limitations . (Elisa Deleon PA-C) Instructions / Follow-Up Instructions / Follow-Up Vomiting and Abdominal Pain: - It is possible that you developed a viral gastroenteritis (stomach flu) that caused you to have the cramping belly pains and vomiting. - It is important to keep hydrated and rest. You do not need any medications for this as it appears to already be resolving. - We did take a sample of your stool and it did not show infection for what is called Clostridium difficile which is a complication from antibiotics that can cause belly pain and diarrhea High Ammonia Levels: - Your ammonia levels were high when you first came into the hospital. When this happens you can become very tired and confused. - It is important that you take your Lactulose as prescribed. This will cause you to have bowel movements but it is important to help rid your body of ammonia. - It is important to continue your Rifaxamin as prescribed. Type 2 Diabetes: - While you were hospitalized we have been monitoring your glucose levels. We used insulin that resulted in a low sugar reading. - We took blood to evaluate your hemoglobin A1c which helps determine how your sugars run over a three month period and your level was 4.2 and has been low for the past 2 years which suggest that you have frequent low sugars - At this time the long acting insulin dose you are one may result in low blood sugars that can be dangerous. - Stop the Humalog sliding scale. - Continue Toujeo at 20 units starting tomorrow night 04/06/16 - I would advise to continue to monitor your blood sugar levels at home as your appetite increases and discuss with your family doctor if they begin to rise. - The highest your sugar levels have been were 189 with the next highest at 162. Home Medications: - You may resume your home medications as prescribed. Please follow dosing instructions. - At this time do not continue your insulin as we have prescribed. - If you have any questions about your home medications please discuss this with your family doctor. Follow-Up: - Please see your family doctor on April 12 at 3:15 PM so they can follow- up with you after your stay in the hospital. - Please discuss insulin needs and other medication questions with your family doctor (Elisa Deleon PA-C) Current Hospital Diet Patient's current hospital diet: Diabetes Type 2 Diet (Elisa Deleon PA-C) Discharge Diet Recommended Diet: Diabetes Type 2 Diet (Elisa Deleon PA-C) Pending Studies Studies pending at discharge: no (Elisa Deleon PA-C) Laboratory Results Hemoglobin A1c Test 04/04/16 07:25 Range/Units Estimated Average Glucose 74 mg/dl Hemoglobin A1c 4.2 L 4.5-5.6 % (Elisa Deleon PA-C) Medical Emergencies . Who to Call and When: Medical Emergencies: If at any time you feel your situation is an emergency, please call 911 immediately. . (Elisa Deleon PA-C) Non-Emergent Contact Non-Emergency issues call your: Primary Care Provider Call Non-Emergent contact if: you have any medication questions . (Elisa Deleon PA-C) . "Provider Documentation" section prepared by Elisa Deleon. (Elisa Deleon PA-C) Attending Attestation: I was present with GHULAM Deleon on the day of discharge and I agree with her discharge instructions as outlined. Sammy Haney MD (Sammy Haney MD) VTE Core Measure Inpt VTE Proph given/why not?: Lopez Downey, SCD's (Elisa Deleon PA-C)
[2016-04-05] MEDS ORDERED: Insulin Glargine SC (15:56)
--- NOTE | 2016-04-05 18:49 | Discharge Summary ---
Discharge Summary Admission Date: Apr 03, 2016 at 11:23 Discharge Date: Apr 05, 2016 Discharge Disposition: Home with services Principal Diagnosis: Hyperammonemia Problems/Secondary Diagnoses: 1. STEVE with Hepatic Encephalopathy 2. Myelodysplastic Syndrome 3. Seizure Disorder 4. Type 2 Diabetes Mellitus 5. Bipolar Disorder 6. Hypothyroidism 7. GERD 8. Hypertension 9. Migraines 10. S/P Cholecystectomy 11. S/P Appendectomy Immunizations: Have You Had Influenza Vaccine: Yes Influenza Vaccine Date: Feb 02, 2013 History of Tetanus Vaccine?: utd Tetanus Immunization Date: Jun 11, 2008 History of Pneumococcal: SEE LAST PACKET Pneumococcal Date: Nov 13, 2008 History of Hepatitis B Vaccine: Unknown Hepatitis Immunization Date: Jan 12, 1996 Consultations: 1. PT/OT (Elisa Deleon, [facility]) Problems/Secondary Diagnoses: pancytopenia 2nd to myelodysplastic syndrome +/- cirrhosis hypokalemia, hypomagnesemia Procedures: CT abd/pelvis - no evidence of SBO, no evidence of ascites (Sammy Haney MD) Medication Reconciliation Changed Medications: [Insulin Glargine] () 300 UNIT/ML INJ 20 UNIT SC DAILY for 30 Days, #1 (Changed from: [Insulin Glargine] (Toujeo Solostar) 300 UNIT/ML INJ 35 Unit SC DAILY 30 Days ) Continued Medications: Ascorbic Acid (Vitamin C) 1,000 Mg Tab 1 TAB PO DAILY Benztropine Mesylate (Benztropine Mesylate) 2 Mg Tab 0.5 MG PO TID for 30 Days, #23 TAB Coenzyme Q10 (Ubidecarenone) (Co Q-10) 150 Mg Cap 150 MG PO DAILY, CAP Cranberry-Vitamin C-Vitamin E (Cranberry) 1 Cap Cap 1 CAP PO TID Epinephrine (Epipen) 0.3 Mg/0.3 Ml Inj 0.3 MG IM UD PRN for ALLERGIC REACTION Ferrous Sulfate (Ferrous Sulfate) 325 Mg Tab 325 MG PO DAILY Fluticasone Propionate (Fluticasone Propionate) 120 Sprays/6000 Mcg Inha 1-2 SPRAYS ABRAHAN BID Glucose-Vitamin C (Glucose) 1 Chw Chw 1 CHW PO UD PRN for Hypoglycemia Lactulose (Lactulose) 30 Gm/45 Ml Syrp 30 GM PO BID for 30 Days Lecithin (Lecithin) 1,200 Mg Cap 1 CAP PO DAILY Levetiracetam (Levetiracetam) 1,000 Mg Tab 1500 MG PO BID TAKE ONE 1000 MG TABLET ALONG WITH ONE 500 MG TABLET TO EQUAL 1500 MG DOSE TWICE A DAILY. Levothyroxine Sodium (Levothyroxine Sodium) 75 Mcg Tab 75 MCG PO DAILY, TAB Magnesium Oxide (Mag-Ox) 400 Mg Tab 400 MG PO TID, TAB Meloxicam (Mobic) 7.5 Mg Tab 1 TAB PO DAILY for 30 Days, #30 TAB 2 Refills Multiple Vitamin (Multivitamin) 1 Tab Tab 1 TABLET PO DAILY Omeprazole (Prilosec) 20 Mg Cap 20 MG PO DAILY, CAP Oxcarbazepine (Trileptal) 600 Mg Tab 600 MG PO BID, TAB Potassium (Potassium) 99 Mg Tab 99 MG PO DAILY Probiotic Product (Probiotic) 1 Cap Cap 1 CAP PO DAILY Prochlorperazine Maleate (Compazine) 10 Mg Tab 10 MG PO Q8 PRN for Nausea or Vomiting, TAB Ranitidine HCl (Ranitidine HCl) 150 Mg Tab 150 MG PO BID Rifaximin (Xifaxan) 550 Mg Tab 550 MG PO BID, TAB Rizatriptan Benzoate (Rizatriptan Benzoate) 10 Mg Tab 10 MG PO UD PRN for Headache TAKE ONE TABLET AT ONSET OF HEADACHE, MAY REPEAT AFTER 2 HOURS IF NEEDED. MAXIMUM OF 3 TABLETS IN 24 HOURS. Sertraline (Zoloft) 50 Mg Tab 125 MG PO DAILY, TAB TWO AND ONE HALF TABLET DOSE Sulfacetamide Sodium (Ophth) (Bleph-10) 10 % Peg 2 DROPS OPB TID, #5 ML BEGIN 02/10/16 X 7 DAYS Topiramate (Topiramate) 25 Mg Tab 25 MG PO BID Trazodone HCl (Trazodone HCl) 100 Mg Tab 300 MG PO HS for 30 Days, #30 TAB Triamterene/Hctz (Triamterene/Hctz 37.5-25MG) 1 Tab Tab 1 TAB PO DAILY, TAB Vitamin A ([id number]) 10,000 Unit Cap 74455 INTER.UNIT PO DAILY Zinc Gluconate (Zinc) 50 Mg Tab 50 MG PO BID Discontinued Medications: Cyclobenzaprine HCl (Cyclobenzaprine HCl) 5 Mg Tab 5 MG PO BID PRN for back pain for 30 Days, #60 TAB Insulin Lispro (Humalog) Inj 1 DOSE SC UD, VIAL 0-150 = 0 units 151-200 = 6 units 201-250 = 8 units 251-300 = 10 units 301-350 = 12 units 351-400 = 14 units 401-450 = 16 units >451 notify MD Discharge Exam Review of Systems: Constitutional: No chills, No fever Eyes: No worsening of vision ENT: No nasal symptoms, No sore throat, No trouble swallowing Respiratory: No cough, No shortness of breath Cardiovascular: No chest pain Abdomen: + diarrhea, No constipation, No nausea, No pain, No vomiting Musculoskeletal: No calf pain, No swelling Genitourinary - Female: No dysuria, No urinary urgency Neurologic: No vertigo, No weakness Endocrine: No fatigue Integumentary: No rash Physical Exam: General Appearance: WD/WN, no apparent distress Eyes: sclerae normal ENT: hearing grossly normal Neck: supple, no JVD, trachea midline Respiratory/Chest: lungs clear, normal breath sounds, no respiratory distress, no accessory muscle use Cardiovascular: regular rate, rhythm, no gallop, no murmur Abdomen / GI: normal bowel sounds, non tender, soft Extremities: no calf tenderness, no pedal edema Neurologic/Psychiatric: alert, oriented x 3 Skin: normal color, warm/dry (Elisa Deleon, PALindaC) Hospital Course ADMISSION: Ms. Munson is a 50 y/o female with PMHx of Liver Cirrhosis, Myelodysplastic Syndrome, Seizure Disorder, T2DM, Bipolar Disorder, Hypothyroidism, GERD, HTN, Migraines, S/P Cholecystectomy, and S/P Appendectomy who presents to the ED for vomiting that started at 0500. Patient reports that she felt her normal self prior to going the bed on 04/02/16. She states that around 0500 she started vomiting which then precipitated bilateral lower quadrant tenderness described as cramping in nature. Pain is aggravated by vomiting but has been mildly relieved with Compazine given in ED. Last episode of emesis was in ED and per note was 150 mL of green bile emesis. Ammonia also noted at 263 in ED. She states her last dose of Lactulose was at approx 2000 on 04/02/16 and reports compliance with her BID dosing. She denies taking her AM dose today. Last BM was this AM prior to these symptoms started and was normal in amount and without diarrhea, melena, or hematochezia. She says that she has been having regular bowel movements and denies constipation. Patient is lethargic however speech is coherent and she is oriented to person, place, and time. She is following commands and answers appropriately to questions asked. She reports taking Levaquin approx 7 days ago that was a small course for sinusitis. In the ED, she was hydrated. She was given a dose of Lactulose and Compazine. She will be admitted to telemetry for further evaluation and care. Hepatic Encephalopathy 2/2 STEVE - Hyperammonemia and Dehydration: - Assessment - symptoms of lethargy, lower quadrant cramping abdominal pain, low grade fever, and vomiting have all resolved - possibly viral gastroenteritis -- In regards to ammonia levels it seems highly suggestive that this is a medication non-compliance issue as she quickly recovers with home lactulose and adequate bowel movements -- Concern for C. Diff and SBO discussed and have been ruled out - Imaging and Studies -- Ammonia trending down - 263...185...86...73 -- Abd XR/CXR - few loops of mildly dilated small bowel not highly suggestive of SBO; moderate gastric distention; no acute cardiopulmonary findings -- Abd CT - no evidence of bowel obstruction; abdominal varices; cirrhotic change with mild splenomegaly -- C. Diff toxin - negative - Lactulose 30 g TID then decreased to home dose of BID - Continued Rifaxamin 550 mg BID T2DM: - Assessment - patient reports taking Toujeo 40 units do to formulary conflict did initiate Lantus glargine 35 units which resulted in glucose of 60s following morning. Held long acting insulin. Did keep insulin aspart for coverage with a 100-150 goal range which resulted in needing a total of 3 units throughout hospital stay. HbA1c obtained that was 4.2 with review of previous labs with last A1c that was at 6 was in 2013. Patient did report low readings at home. Recommended to stop insulin therapy and monitor glucose until follow- up with PCP. Patient's was not in agreement and discussed using a reduced dose of Toujeo of 20 units daily with glucose monitoring until follow- up. Consideration placed for myelodysplastic syndrome creating inaccurate readings but insulin adjustment is still suggested. Home Medications: - Advised to take home medications as prescribed with recommendations to decrease Toujeo to 20 units daily Disposition: - Patient is well known to the hospitalist service and is currently at her baseline mentation. She has had an adequate response to implementation of her Lactulose. She has been admitted nearly month this past year for hepatic encephalopathy/hyperammonemia or generalized weakness. This patient is high risk for 30 day readmission. - She is at baseline mentation, vitals stable, and acute symptoms resolved. She is optimal for discharge home with PCP follow-up on April 12, 2016. Total Time Spent: Greater than 30 minutes This includes examination of the patient, discharge planning, medication reconciliation, and communication with other providers. (Elisa Deleon, MACO) Attending Attestation: Pt seen/examined, discharge care plan d/w GHULAM Deleon on day of discharge. I agree with the tai components of her discharge summary. 50yo female with cirrhosis 2nd to STEVE and frequent hospital admissions for hepatic encephalopathy who presented with copious vomiting and weakness. At time of presentation she had altered mental status with ammonia level >200. There was some concern of bowel obstruction as there were reports that the emesis was bilious. CT abd/pelvis done shortly after admission failed to show an obstructive process. She was treated with lactulose enemas and then lactulose by mouth for her hepatic encephalopathy as well as rifaximin with rapid improvement in her mental status. She did have some diarrhea during the hospital stay but c. diff toxin was negative. There was no evidence of any other infectious process such as UTI, pneumonia, etc. It was suspected that she had a viral gastroenteritis that led to her severe vomiting prior to presentation. The stress of illness, coupled with suspected noncompliance with her rifaximin/ lactulose, was the likely cause of the hepatic encephalopathy. At discharge the patient's mental status was at baseline, she was cleared for home by PT/OT, and she was eating a regular diet w/o difficulty. I was in agreement with Ms. Deleon's recommendation to either cut completely or at the very least significantly reduce the patient's insulin for home use. Her highest blood sugar during the entire stay was <175 and she also had hypoglycemia. I agree that her reported low hemoglobin a1c of 4.2% may reflect hemoglobin turnover from her chronic pancytopenia thus falsely reducing her a1c. None-the- less, she clearly has been having hypoglycemic spells at home and had such in the hospital as well, calling for a reduction in her regimen. I will defer to her PCP any additional changes. Discharge exam - gen - NAD, a/o x 3 mouth - MMM heart - RRR, s1, s2, 1/6 GIOVANNI LSB lungs - CTA b/l abd - soft, NT, ND, BS+, spleen palpable, no ascites ext - no edema neuro - no asterixis Sammy Haney MD (Sammy Haney MD) Discharge Instructions Please refer to the electronic Patient Visit Report (Discharge Instructions) for additional information. (Elisa Deleon, PA-C) Additional Copies To Mingo Lin M.D.
[2016-05-06] MEDS ORDERED: SERT50TA PO (02:11)
[2016-05-06] MEDS ORDERED: OXCA600T2 PO (02:14)
[2016-05-06] MEDS ORDERED: INSU1.2I SQ (03:33)
[2016-05-06] MEDS ORDERED: SULF10SO2 OPB (05:23)
[2016-05-06] MEDS ORDERED: ASCO10003 PO (08:01)
[2016-05-06] MEDS ORDERED: MULTTAB58 PO (08:08)
[2016-05-06] MEDS ORDERED: LECI1200 PO (08:18)
[2016-05-22] MEDS ORDERED: LACT10SO30 PO (10:16)
[2016-05-22] MEDS ORDERED: TRAZ1TAB52 PO (10:16)
[2016-05-22] MEDS ORDERED: PRLSR20 PO (10:16)
[2016-05-22] MEDS ORDERED: TRIA37.5 PO (10:16)
[2016-05-22] MEDS ORDERED: SERT25TA PO (10:16)
[2016-05-22] MEDS ORDERED: SERT100T PO (10:16)
[2016-05-22] MEDS ORDERED: SPRIN/30 INH (10:23)
[2016-05-22] MEDS ORDERED: IPRASOL4 INH (10:23)
[2016-05-22] MEDS ORDERED: VNTHFA/IN INH (10:23)
[2016-06-18] MEDS ORDERED: PRED1SUS OPR (07:39)
[2016-06-18] MEDS ORDERED: BROM0.07 OPR (07:39)
[2016-06-18] MEDS ORDERED: SYMIN160 INH (07:39)
[2016-06-18] MEDS ORDERED: INSU100I2 SC (07:42)
[2016-08-13] MEDS ORDERED: DESV50TA2 PO (13:37)
[2016-08-13] MEDS ORDERED: LACT10SO17 PO (13:37)
[2016-08-13] MEDS ORDERED: CARB25TA12 PO (13:37)
[2016-08-28] MEDS ORDERED: TOPI25CA2 PO (10:30)
[2016-09-19] MEDS ORDERED: VITA1TAB4 PO (12:03)
[2016-09-19] MEDS ORDERED: LUTE20TA PO (12:03)
[2016-09-19] MEDS ORDERED: PUMP1CAP PO (12:03)
[2016-09-19] MEDS ORDERED: CHOL20009 PO (12:03)
[2016-09-19] MEDS ORDERED: MIRT15TA3 PO (12:03)
[2016-09-19] MEDS ORDERED: CAFF3TAB PO (12:03)
[2016-09-19] MEDS ORDERED: CRAN1TAB PO (12:04)
[2016-09-19] MEDS ORDERED: TOPI25TA99 PO (12:07)
[2016-09-19] MEDS ORDERED: TOPI25TA10 PO (12:08)
[2016-09-28] MEDS ORDERED: Levetiracetam PO (09:59)
[2016-10-14] MEDS ORDERED: CARB25TA16 PO (10:30)
[2016-10-24] MEDS ORDERED: LACT10SO17 PO (12:57)
[2016-10-24] MEDS ORDERED: LACO50TA PO (12:57)
[2016-10-24] MEDS ORDERED: KETO10TA PO (12:57)
[2016-10-24] MEDS ORDERED: INSU1.2I SQ (12:57)
[2016-12-26] MEDS ORDERED: CIPR-255 PO (10:04)
[2017-01-01] MEDS ORDERED: [UNRECOGNIZED DRUG - CODE] PO (07:45)
[2017-01-01] MEDS ORDERED: OXYC1TAB3 PO (07:45)
== END 2016-04-05 16:40 | disposition home health service (06) | DRG 642 ==
LOC: ENRESERVTM → ENRESERVDT → C.EDB 06:47 → C.MED 11:23 → EDBEDREQ 11:48
PROVIDERS: ADMIT Internal Medicine; ATTEND Internal Medicine
DX: E72.20 Disorder of urea cycle metabolism, unspecified (principal); D61.818 Other pancytopenia; A08.4 Viral intestinal infection, unspecified; K72.90 Hepatic failure, unspecified without coma; D46.9 Myelodysplastic syndrome, unspecified; K75.81 Nonalcoholic steatohepatitis (NASH); K74.60 Unspecified cirrhosis of liver; E87.6 Hypokalemia; E83.42 Hypomagnesemia; E86.0 Dehydration; E11.649 Type 2 diabetes mellitus with hypoglycemia without coma; I10 Essential (primary) hypertension; K21.9 Gastro-esophageal reflux disease without esophagitis; G89.29 Other chronic pain; M54.9 Dorsalgia, unspecified; G40.909 Epilepsy, unspecified, not intractable, without status epilepticus; G43.909 Migraine, unspecified, not intractable, without status migrainosus; F31.9 Bipolar disorder, unspecified; Z91.19 Patient's noncompliance with other medical treatment and regimen; Z79.1 Long term (current) use of non-steroidal anti-inflammatories (NSAID); Z79.4 Long term (current) use of insulin; Z79.899 Other long term (current) drug therapy

== ENCOUNTER 2016-04-16 01:33 | Emergency (ER) | payer BC, OTHER ==
[~2016-04-16] VITALS: Ht 165.1 cm; Wt 93.2 kg
[~2016-04-16 01:33] MED LIST changes: +COEN150C PO; -FIBEPOW PO; -FLX5 PO; -HMLI SC; -NVLGIPEN SC
[2016-04-16 01:37] VITALS: Ht 165.1 cm; Wt 93.2 kg
[2016-04-16] MEDS ORDERED: OXYCODONE HCL IR 5 MG TAB (IMMEDIATE RELEASE) PO STA ×2 (01:49→03:33)
--- NOTE | 2016-04-16 02:04 | EMERGENCY ROOM VISIT NOTE ---
History Report prepared by Broderick: Cristy Gage Under the Supervision of: Dr. Gerri Nieves D.O. 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 The patient states that she went to get her neck alarm as she was coming out of the bathroom. She reports that she walked into the living room and lost her balance and fell backwards into her fake Aries tree and it fell on top of her. The patient notes that her was at work at the time and she used her neck alarm to call the ambulance. The police arrived but the door was locked so they got her and he gave them the tai so that EMS could get inside. She complains of back pain, right hip pain, and right leg pain. She denies any neck pain and abdominal pain and LOC. The patient states that EMS walked her out to the stretcher and walking was painful in her hip and back. She notes that she takes oxycodone for pain at home and the last time she took it was 2 days ago. 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 She denies any lightheadedness. Review of Systems See HPI for pertinent positives & negatives. A total of 10 systems reviewed and were otherwise negative. 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 (17) Seizure disorder Surgical Problems: (1) H/O nasal septoplasty (2) History of appendectomy (3) History of cholecystectomy (4) History of hysterectomy (5) History of kyphoplasty (6) History of tonsillectomy (7) s/p spinal stimulator placement Family History Depression Hypertension Social History Smoking Status: Never Smoker Alcohol Use: none Drug Use: none Marital Status: Housing Status: lives with significant other Occupation Status: disabled Current/Historical Medications Scheduled Ascorbic Acid (Vitamin C), 1 TAB PO DAILY Benztropine Mesylate (Benztropine Mesylate), 1 MG PO BID Coenzyme Q10 (Ubidecarenone) (Co Q-10), 150 MG PO DAILY Cranberry-Vitamin C-Vitamin E (Cranberry), 1 CAP PO TID Ferrous Sulfate (Ferrous Sulfate), 325 MG PO DAILY Fluticasone Propionate (Fluticasone Propionate), 1-2 SPRAYS ABRAHAN BID Insulin Glargine (Toujeo Solostar), 40 UNITS SQ DAILY Lactulose (Lactulose), 30 GM PO BID Lecithin (Lecithin), 1 CAP PO DAILY Levetiracetam (Levetiracetam), 1,500 MG PO BID Levothyroxine Sodium (Levothyroxine Sodium), 75 MCG PO DAILY Magnesium Oxide (Mag-Ox), 400 MG PO TID Meloxicam (Mobic), 1 TAB PO DAILY Multiple Vitamin (Multivitamin), 1 TABLET PO DAILY Omeprazole (Prilosec), 20 MG PO DAILY Oxcarbazepine (Trileptal), 600 MG PO BID Potassium (Potassium), 99 MG PO DAILY Probiotic Product (Probiotic), 1 CAP PO DAILY Ranitidine HCl (Ranitidine HCl), 150 MG PO BID Rifaximin (Xifaxan), 550 MG PO BID Sertraline (Zoloft), 100 MG PO DAILY Sulfacetamide Sodium (Ophth) (Bleph-10), 2 DROPS OPB TID Topiramate (Topiramate), 25 MG PO BID Trazodone HCl (Trazodone HCl), 300 MG PO HS Triamterene/Hctz (Triamterene/Hctz 37.5-25MG), 1 TAB PO DAILY Vitamin A (A-11939), 10,000 INTER.UNIT PO DAILY Zinc Gluconate (Zinc), 50 MG PO BID Scheduled PRN Epinephrine (Epipen), 0.3 MG IM UD PRN for ALLERGIC REACTION Glucose-Vitamin C (Glucose), 1 CHW PO UD PRN for Hypoglycemia Prochlorperazine Maleate (Compazine), 10 MG PO Q8 PRN for Nausea or Vomiting Rizatriptan Benzoate (Rizatriptan Benzoate), 10 MG PO UD PRN for Headache Allergies Coded Allergies: Amoxicillin (Verified Allergy, Intermediate, HIVES, 04/16/16) Azithromycin (Verified Allergy, Intermediate, HIVES, 04/16/16) Baclofen (Verified Allergy, Intermediate, RASH, 04/16/16) Butalbital (Verified Allergy, Intermediate, HIVES, 04/16/16) Clarithromycin (Verified Allergy, Intermediate, RASH, 04/16/16) Dicyclomine (Verified Allergy, Intermediate, HIVES, 04/16/16) HIVES Penicillins (Verified Allergy, Intermediate, RASH, 04/16/16) PT STATES SHE GETS WELTS FROM CIPRO,LEVAQUIN ALLERGY PER DR ROBLES Tetracyclines (Verified Allergy, Intermediate, DOXYCYCLINE-HIVES, 04/16/16) Sulindac (Verified Allergy, Mild, ALLERGY LISTED "CLONDORAL"--HIVES, ) Adhesives (Verified Allergy, Unknown, RASH, DUODERM=RED,ITCHY, 04/16/16) PLASTIC TAPE IS OK!!! DUODERM=RED,ITCHY Clindamycin (Verified Allergy, Unknown, HIVES, 04/16/16) Metronidazole (Verified Allergy, Unknown, SEIZURE, 04/16/16) Metoclopramide (Verified Adverse Reaction, Severe, SEIZURES, 04/16/16) Furosemide (Verified Adverse Reaction, Unknown, HIVES, 04/16/16) Physical Exam Vital Signs Date Time Temp Pulse Resp B/P Pulse Ox O2 Delivery O2 Flow Rate FiO2 04/16/16 04:17 36.4 64 18 144/81 98 04/16/16 04:00 64 18 144/81 98 Room Air 04/16/16 01:37 36.4 67 18 147/67 99 Room Air Physical Exam General: The patient appears sleepy. HEENT: Head - normocephalic and atraumatic Pupils are equal, round, and reactive to light. Extraocular eye muscles are intact, and sclera are anicteric. Nose - moist nasal mucosa without discharge. Mouth - moist buccal mucosa. Oropharynx is nonerythematous and there is no tonsillar exudate or edema noted. Neck: Supple; cervical collar was in place. This was removed as the patient had no complaints of neck pain. No pain to palpation over the posterior cervical spine. Heart: Regular rate and rhythm. There is a normal S1 and S2 with no murmurs, clicks, or gallops appreciated. Lungs: Clear to auscultation bilaterally with no wheezes, rales, or rhonchi. Abdomen: Soft, nondistended, with good bowel sounds. There are no palpable pulsatile masses or hepatosplenomegaly. There is no guarding, rigidity, or rebound noted. Discomfort over the right ASIS. Back: Moderate pain to palpation over the midline lumbar spine. Extremities: No evidence of cyanosis, clubbing, or edema. There are easily palpable peripheral pulses. Skin: warm and dry with good turgor and no rashes. Medical Decision & Procedures ER Provider Diagnostic Interpretation: X-ray results as stated below per interpretation by me: Lumbar Spine X-Ray: Has a severe compression deformity of L1 which is old compared to previous. Pelvis X-Ray: No obvious pelvis or hip fracture. Medications Administered Medications (Trade) Dose Ordered Sig/Danita Route Start Time Stop Time Status Last Admin Dose Admin Oxycodone HCl (Roxicodone Immediate Rel Tab) 5 mg NOW STAT PO 04/16/16 01:49 04/16/16 01:51 DC 04/16/16 01:58 5 MG Oxycodone HCl (Roxicodone Immediate Rel Tab) 5 mg NOW STAT PO 04/16/16 03:33 04/16/16 03:35 DC 04/16/16 03:59 5 MG Procedure 0149: Oxycodone HCl 5mg PO. 0333: Oxycodone HCl 5mg PO. ED Course 0139: Past medical records reviewed. The patient was evaluated in room B11B. A complete history and physical exam was performed. The patient was rolled over for full exam. She was placed into a gown. 0149: Oxycodone HCl 5mg PO. She went for plain films of her lumbar spine and pelvis. 0333: I reevaluated the patient. She would like something else for pain before she leaves. 0333: Oxycodone HCl 5mg PO. 0342: Upon reevaluation, the patient is hemodynamically stable. I discussed findings and results with the patient. She verbalized agreement of the treatment plan. The patient was discharged home with her . Medical Decision The patient is a 50 year old female who presents to the ED after an episode of a fall. Differential diagnosis includes pelvis fracture, lumbar spine fracture, low back strain, contusion. The patient denies feeling poorly over the past couple of days. She denies becoming lightheaded or weak prior to the fall. She simply states that she lost her balance. The patient has a significant compression deformity in her lumbar spine that is old. I do not see any new or acute findings on the x- rays. There is no evidence of a pelvis fracture. The patient did walk herself from the home after the ambulance stretcher. She has got moderate relief of her symptoms with the oral oxycodone. The patient has oxycodone to use at home. I have asked her to follow-up with the PCP if the symptoms persist. Impression Primary Impression: Low back pain Additional Impressions: Pain in pelvis Fall Scribe Attestation The scribe's documentation has been prepared under my direction and personally reviewed by me in its entirety. I confirm that the note above accurately reflects all work, treatment, procedures, and medical decision making performed by me. Departure Information Dispostion Home / Self-Care Referrals Mingo Lin M.D. (PCP) Forms HOME CARE DOCUMENTATION FORM, IMPORTANT VISIT INFORMATION Patient Instructions Falls Prevent Home, My [facility] Additional Instructions Rest. You will be sore tomorrow. Use your own OXY-IR for pain at home Problem Qualifiers Primary Impression: Low back pain Back pain laterality: midline
[2016-04-16 04:17] VITALS: BP 144/81; PULSE 64; TEMP 36.4; O2SAT 98
--- NOTE | 2016-04-16 06:45 | DIAGNOSTIC IMAGING REPORT ---
PELVIS 1 OR 2 VIEW ROUTINE CLINICAL HISTORY: Pain status post trauma COMPARISON STUDY: 03/26/2015 FINDINGS: The bones are mildly osteopenic. There are degenerative changes in the lower lumbar spine. No fractures or dislocations are visualized. IMPRESSION: No fractures or dislocations identified. Electronically signed by: Bran Hernandez M.D. 04/16/2016 6:43 AM Dictated Date/Time: 04/16/2016 6:43 AM
--- NOTE | 2016-04-16 06:47 | DIAGNOSTIC IMAGING REPORT ---
L-SPINE MIN 4 VIEWS ROUTINE CLINICAL HISTORY: Pain status post trauma COMPARISON STUDY: 01/02/2016 FINDINGS: There is an old L1 compression fracture. There is T12 L1-L2 fusion. No acute fractures are visualized. There are degenerative changes the L4-5 well with endplate irregularity, likely on a degenerative discogenic basis. There are postsurgical changes are prior cholecystectomy. IMPRESSION: Old L1 compression fracture. No acute fractures. Degenerative changes most pronounced at the L4-5 level. Electronically signed by: Bran Hernandez M.D. 04/16/2016 6:45 AM Dictated Date/Time: 04/16/2016 6:44 AM
[2016-05-06] MEDS ORDERED: SERT50TA PO (02:11)
[2016-05-06] MEDS ORDERED: OXCA600T2 PO (02:14)
[2016-05-06] MEDS ORDERED: INSU1.2I SQ (03:33)
[2016-05-06] MEDS ORDERED: SULF10SO2 OPB (05:23)
[2016-05-06] MEDS ORDERED: ASCO10003 PO (08:01)
[2016-05-06] MEDS ORDERED: MULTTAB58 PO (08:08)
[2016-05-06] MEDS ORDERED: LECI1200 PO (08:18)
[2016-05-22] MEDS ORDERED: TRAZ1TAB52 PO (10:16)
[2016-05-22] MEDS ORDERED: LACT10SO30 PO (10:16)
[2016-05-22] MEDS ORDERED: TRIA37.5 PO (10:16)
[2016-05-22] MEDS ORDERED: SERT25TA PO (10:16)
[2016-05-22] MEDS ORDERED: SERT100T PO (10:16)
[2016-05-22] MEDS ORDERED: PRLSR20 PO (10:16)
[2016-05-22] MEDS ORDERED: SPRIN/30 INH (10:23)
[2016-05-22] MEDS ORDERED: IPRASOL4 INH (10:23)
[2016-05-22] MEDS ORDERED: VNTHFA/IN INH (10:23)
[2016-06-18] MEDS ORDERED: SYMIN160 INH (07:39)
[2016-06-18] MEDS ORDERED: PRED1SUS OPR (07:39)
[2016-06-18] MEDS ORDERED: BROM0.07 OPR (07:39)
[2016-06-18] MEDS ORDERED: INSU100I2 SC (07:42)
[2016-08-13] MEDS ORDERED: CARB25TA12 PO (13:37)
[2016-08-13] MEDS ORDERED: LACT10SO17 PO (13:37)
[2016-08-13] MEDS ORDERED: DESV50TA2 PO (13:37)
[2016-08-28] MEDS ORDERED: TOPI25CA2 PO (10:30)
[2016-09-19] MEDS ORDERED: CAFF3TAB PO (12:03)
[2016-09-19] MEDS ORDERED: MIRT15TA3 PO (12:03)
[2016-09-19] MEDS ORDERED: CHOL20009 PO (12:03)
[2016-09-19] MEDS ORDERED: PUMP1CAP PO (12:03)
[2016-09-19] MEDS ORDERED: LUTE20TA PO (12:03)
[2016-09-19] MEDS ORDERED: VITA1TAB4 PO (12:03)
[2016-09-19] MEDS ORDERED: CRAN1TAB PO (12:04)
[2016-09-19] MEDS ORDERED: TOPI25TA99 PO (12:07)
[2016-09-19] MEDS ORDERED: TOPI25TA10 PO (12:08)
[2016-09-28] MEDS ORDERED: Levetiracetam PO (09:59)
[2016-10-14] MEDS ORDERED: CARB25TA16 PO (10:30)
[2016-10-24] MEDS ORDERED: LACO50TA PO (12:57)
[2016-10-24] MEDS ORDERED: LACT10SO17 PO (12:57)
[2016-10-24] MEDS ORDERED: INSU1.2I SQ (12:57)
[2016-10-24] MEDS ORDERED: KETO10TA PO (12:57)
[2016-12-25] MEDS ORDERED: BUME1TAB PO (16:53)
[2016-12-25] MEDS ORDERED: KFL500 PO (16:53)
[2016-12-26] MEDS ORDERED: CIPR-255 PO (10:04)
== END 2016-04-16 04:18 | disposition home or self-care (01) ==
LOC: EDBD 01:33 → C.EDB 01:36
DX: M54.5 Low back pain (principal); R10.2 Pelvic and perineal pain; W18.00XA Striking against unspecified object with subsequent fall, initial encounter; J45.909 Unspecified asthma, uncomplicated; E11.9 Type 2 diabetes mellitus without complications; G40.909 Epilepsy, unspecified, not intractable, without status epilepticus; F31.9 Bipolar disorder, unspecified; Z79.4 Long term (current) use of insulin; Z90.710 Acquired absence of both cervix and uterus; Z90.49 Acquired absence of other specified parts of digestive tract

== ENCOUNTER 2016-04-19 00:14 | Emergency (ER) | payer BC, OTHER ==
[~2016-04-19] VITALS: Ht 165.1 cm; Wt 87.0 kg
[~2016-04-19 00:14] MED LIST changes: -Insulin Glargine SC
[2016-04-19 00:22] VITALS: TEMP 36.8; Ht 165.1 cm; Wt 87.0 kg
[2016-04-19] MEDS ORDERED: ONDANSETRON INJ 2 MG/ML 2 ML VIAL IV STA (00:35)
[2016-04-19] MEDS ORDERED: ALBUT/IPRATROP 3MG/0.5MG NEB 3 ML VIAL INH STA (00:35)
[2016-04-19] MEDS ORDERED: SODIUM CHLORIDE 0.9% 1000ML 1,000 ML IV STA (00:35)
[2016-04-19 01:03] LABS: HEMATOCRIT 28.4 % (37-47); MEAN CELL VOLUME 98.6 fL (80-100); MEAN CORPUSCULAR HEMOGLOBIN 36.1 pg (25-34); MEAN CORPUSCULAR HGB CONC 36.6 g/dl (32-36); RED BLOOD COUNT 2.88 M/uL (4.2-5.4); WHITE BLOOD COUNT 3.23 K/uL (4.8-10.8)
[2016-04-19 01:06] LABS: BASO % 1.2 %; BASO ABS # 0.04 K/uL (0-0.2); COMPLETE YES; EOS % 5.9 %; LYMPH % 29.4 %; LYMPH ABS # 0.95 K/uL (1.2-3.4); MEAN PLATELET VOLUME 9.8 fL (7.4-10.4); MONO % 9.9 %; NEUT % 53.6 %; PLATELET COUNT 60 K/uL (130-400)
[2016-04-19 01:24] LABS: BUN/CREATININE RATIO 25.5 (10-20); CALCIUM 7.7 mg/dl (8.5-10.1); CREATININE 0.58 mg/dl (0.60-1.20); POTASSIUM 3.6 mmol/L (3.5-5.1)
[2016-04-19] MEDS ORDERED: ALBUTEROL 0.5% NEB SOLN 2.5 MG/0.5 ML VIAL INH STA (01:53)
[2016-04-19] MEDS ORDERED: CALCIUM CARBONATE 500 MG CHEWABLE PO STA (01:53)
[2016-04-19] MEDS ORDERED: PROCHLORPERAZINE MALEATE 5 MG TAB PO ONE (02:00)
[2016-04-19 02:10] VITALS: BP 123/49; PULSE 77; O2SAT 100
--- NOTE | 2016-04-19 02:18 | EMERGENCY ROOM VISIT NOTE ---
History First contact with patient: 00:31 Chief Complaint: COUGH Stated Complaint: NAUSEA,COUGH History of Present Illness The patient is a 50 year old female who presents to the Emergency Room with complaints of cough, congestion, vomiting for the past day. Patient denies chest pain, dyspnea, abdominal pain, diarrhea, headache, neck stiffness. She is tolerated by mouth fluids but has a lack of appetite. No flu shot. No temperature was taken. Patient states she coughs and then vomits. Review of Systems See HPI for pertinent positives & negatives. A total of 10 systems reviewed and were otherwise negative. 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 (17) Seizure disorder Surgical Problems: (1) H/O nasal septoplasty (2) History of appendectomy (3) History of cholecystectomy (4) History of hysterectomy (5) History of kyphoplasty (6) History of tonsillectomy (7) s/p spinal stimulator placement Family History Depression Hypertension Social History Smoking Status: Never Smoker Alcohol Use: none Drug Use: none Marital Status: Housing Status: lives with significant other Occupation Status: disabled Current/Historical Medications Scheduled Ascorbic Acid (Vitamin C), 1 TAB PO DAILY Benztropine Mesylate (Benztropine Mesylate), 1 MG PO BID Coenzyme Q10 (Ubidecarenone) (Co Q-10), 150 MG PO DAILY Cranberry-Vitamin C-Vitamin E (Cranberry), 1 CAP PO TID Ferrous Sulfate (Ferrous Sulfate), 325 MG PO DAILY Fluticasone Propionate (Fluticasone Propionate), 1-2 SPRAYS ABRAHAN BID Insulin Glargine (Toujeo Solostar), 40 UNITS SQ DAILY Lactulose (Lactulose), 30 GM PO BID Lecithin (Lecithin), 1 CAP PO DAILY Levetiracetam (Levetiracetam), 1,500 MG PO BID Levothyroxine Sodium (Levothyroxine Sodium), 75 MCG PO DAILY Magnesium Oxide (Mag-Ox), 400 MG PO TID Meloxicam (Mobic), 1 TAB PO DAILY Multiple Vitamin (Multivitamin), 1 TABLET PO DAILY Omeprazole (Prilosec), 20 MG PO DAILY Oxcarbazepine (Trileptal), 600 MG PO BID Potassium (Potassium), 99 MG PO DAILY Probiotic Product (Probiotic), 1 CAP PO DAILY Ranitidine HCl (Ranitidine HCl), 150 MG PO BID Rifaximin (Xifaxan), 550 MG PO BID Sertraline (Zoloft), 100 MG PO DAILY Sulfacetamide Sodium (Ophth) (Bleph-10), 2 DROPS OPB TID Topiramate (Topiramate), 25 MG PO BID Trazodone HCl (Trazodone HCl), 300 MG PO HS Triamterene/Hctz (Triamterene/Hctz 37.5-25MG), 1 TAB PO DAILY Vitamin A ([id number]), 10,000 INTER.UNIT PO DAILY Zinc Gluconate (Zinc), 50 MG PO BID Scheduled PRN Epinephrine (Epipen), 0.3 MG IM UD PRN for ALLERGIC REACTION Glucose-Vitamin C (Glucose), 1 CHW PO UD PRN for Hypoglycemia Prochlorperazine Maleate (Compazine), 10 MG PO Q8 PRN for Nausea or Vomiting Rizatriptan Benzoate (Rizatriptan Benzoate), 10 MG PO UD PRN for Headache Allergies Coded Allergies: Amoxicillin (Verified Allergy, Intermediate, HIVES, 04/19/16) Azithromycin (Verified Allergy, Intermediate, HIVES, 04/19/16) Baclofen (Verified Allergy, Intermediate, RASH, 04/19/16) Butalbital (Verified Allergy, Intermediate, HIVES, 04/19/16) Clarithromycin (Verified Allergy, Intermediate, RASH, 04/19/16) Dicyclomine (Verified Allergy, Intermediate, HIVES, 04/19/16) HIVES Penicillins (Verified Allergy, Intermediate, RASH, 04/19/16) PT STATES SHE GETS WELTS FROM CIPRO,LEVAQUIN ALLERGY PER DR ROBLES Tetracyclines (Verified Allergy, Intermediate, DOXYCYCLINE-HIVES, 04/19/16) Sulindac (Verified Allergy, Mild, ALLERGY LISTED "CLONDORAL"--HIVES, ) Adhesives (Verified Allergy, Unknown, RASH, DUODERM=RED,ITCHY, 04/19/16) PLASTIC TAPE IS OK!!! DUODERM=RED,ITCHY Clindamycin (Verified Allergy, Unknown, HIVES, 04/19/16) Metronidazole (Verified Allergy, Unknown, SEIZURE, 04/19/16) Metoclopramide (Verified Adverse Reaction, Severe, SEIZURES, 04/19/16) Furosemide (Verified Adverse Reaction, Unknown, HIVES, 04/19/16) Physical Exam Vital Signs Date Time Temp Pulse Resp B/P Pulse Ox O2 Delivery O2 Flow Rate FiO2 04/19/16 02:10 77 18 123/49 100 Room Air 04/19/16 01:04 96 04/19/16 00:22 36.8 73 18 102/61 98 Room Air Physical Exam VITALS: Vitals are noted on the nurse's note and reviewed by myself. Vital signs stable. GENERAL: White female alert and oriented answering questions appropriately, in no acute distress, nondiaphoretic, well-developed well-nourished. SKIN: The skin was without rashes, erythema, edema, or bruising. There is no tenting of the skin. Capillary reflex less than 2 seconds. HEAD: Normocephalic atraumatic. EARS: External auditory canals clear, tympanic membranes pearly jorgensen without erythema or effusion bilaterally. EYES: Pupils equal round and reactive to light and accommodation. Conjunctivae without injection, sclerae without icterus. Extraocular movements intact. NOSE: Patent, turbinates without inflammation or discharge. No sinus tenderness. MOUTH: Mucous membranes moist. Pharynx without erythema or exudate. Uvula midline. Airway patent. Tongue does not deviate. NECK: Supple without nuchal rigidity. No lymphadenopathy. No thyromegaly. Cervical spine is nontender. No JVD. HEART: Regular rate and rhythm without murmurs gallops or rubs. LUNGS: Clear to auscultation bilaterally without wheezes, rales or rhonchi. No dullness to percussion. No retractions or accessory muscle use. ABDOMEN: Positive bowel sounds x 4. Normal tympanic percussion. Soft, nontender, without masses or organomegaly. Perkins sign negative. No guarding or rebound tenderness. MUSCULOSKELETAL: No muscle atrophy, erythema, or edema noted. NEURO: Patient was alert and oriented to person place and time. Normal sensation to light and sharp touch. No focal neurological deficits. Medical Decision & Procedures Laboratory Results 04/19/16 00:52 Red Blood Count 2.88, Mean Corpuscular Volume 98.6, Mean Corpuscular Hemoglobin 36.1, Mean Corpuscular Hemoglobin Concent 36.6, Mean Platelet Volume 9.8, Neutrophils (%) (Auto) 53.6, Lymphocytes (%) (Auto) 29.4, Monocytes (%) (Auto) 9.9, Eosinophils (%) (Auto) 5.9, Basophils (%) (Auto) 1.2, Neutrophils # (Auto) 1.73, Lymphocytes # (Auto) 0.95, Monocytes # (Auto) 0.32, Eosinophils # (Auto) 0.19, Basophils # (Auto) 0.04 04/19/16 00:52 Test 04/19/16 00:52 04/19/16 01:30 White Blood Count 3.23 K/uL (4.8-10.8) Red Blood Count 2.88 M/uL (4.2-5.4) Hemoglobin 10.4 g/dL (12.0-16.0) Hematocrit 28.4 % (37-47) Mean Corpuscular Volume 98.6 fL (80-100) Mean Corpuscular Hemoglobin 36.1 pg (25-34) Mean Corpuscular Hemoglobin Concent 36.6 g/dl (32-36) Platelet Count 60 K/uL (130-400) Mean Platelet Volume 9.8 fL (7.4-10.4) Neutrophils (%) (Auto) 53.6 % Lymphocytes (%) (Auto) 29.4 % Monocytes (%) (Auto) 9.9 % Eosinophils (%) (Auto) 5.9 % Basophils (%) (Auto) 1.2 % Neutrophils # (Auto) 1.73 K/uL (1.4-6.5) Lymphocytes # (Auto) 0.95 K/uL (1.2-3.4) Monocytes # (Auto) 0.32 K/uL (0.11-0.59) Eosinophils # (Auto) 0.19 K/uL (0-0.5) Basophils # (Auto) 0.04 K/uL (0-0.2) RDW Standard Deviation 43.8 fL (36.4-46.3) RDW Coefficient of Variation 12.1 % (11.5-14.5) Immature Granulocyte % (Auto) 0.0 % Immature Granulocyte # (Auto) 0.00 K/uL (0.00-0.02) Anion Gap 7.0 mmol/L (3-11) Est Creatinine Clear Calc Drug Dose 126.4 ml/min Estimated GFR () 124.6 Estimated GFR (Non- 107.5 BUN/Creatinine Ratio 25.5 (10-20) Calcium Level 7.7 mg/dl (8.5-10.1) Influenza Type A Antigen Neg for Influ A (NEG) Influenza Type B Antigen Neg for Influ B (NEG) Medications Administered Medications (Trade) Dose Ordered Sig/Danita Route Start Time Stop Time Status Last Admin Dose Admin Sodium Chloride (Nss 1000ml) 1,000 ml @ 999 mls/hr Q1H1M STAT IV 04/19/16 00:35 04/19/16 01:35 DC 04/19/16 00:56 999 MLS/HR Albuterol/ Ipratropium (Duoneb) 3 ml NOW STAT INH 04/19/16 00:35 04/19/16 00:37 DC 04/19/16 00:35 3 ML Albuterol Sulfate (Ventolin 0.5% 2.5MG/0.5ML Neb) 2.5 mg NOW STAT INH 04/19/16 01:53 04/19/16 01:56 DC 04/19/16 02:10 2.5 MG ED Course Prior records/ancillary studies reviewed. Triage Nursing notes reviewed. Additional history obtained from the family. The patient's history was concerning for nausea, vomiting, and cough Differential diagnosis: Etiologies such as gastroenteritis, food borne illness, infections, appendicitis , diverticulitis, inflammatory bowel disease, obstruction, GI bleed, biliary pathology, as well as others were entertained. Physical examination findings: As above. Abdominal examination revealed no tenderness. Vital signs reviewed and revealed stable. ER treatment provided: IV hydration 1 L NSS. Nebulizer On reassessment the patient felt better. Patient was tolerating p.o. intake. Diagnostics interpretation by me: The labs revealed stable pancytopenia improved from baseline. Low calcium and this is replaced orally Imaging studies: Chest x-ray with no acute consolidation, free air or pneumothorax per interpretation This appears to be consistent with vomiting with acute bronchitis. Patient was well-appearing. She was alert and oriented and was not confused. I did not check her ammonia level as patient was not confused. Patient is tolerating fluids. No pneumonia on x-ray. She is advised to follow-up family care in a day or 2 or here in the ER sooner for high fevers, vomiting, lethargy, confusion , worsening signs or symptoms or as needed. By the evaluation outlined above emergent etiologies such as appendicitis, diverticulitis, obstruction, cardiac sources, mesenteric ischemia, aortic pathology, inflammatory bowel disease, renal colic, PUD, biliary pathology, UTI, as well as others were deemed relatively unlikely. The pt informed about the findings as listed above. All questions were answered and pleased with the treatment. Return instructions were outlined and the patient was discharged in stable condition. Outpatient prescription management: Compazine Referral: The patient was referred to their primary care physician for follow-up in 2 to 3 days for a recheck of the current condition. Case reviewed with my attending Medical Decision As above Impression Primary Impression: Acute bronchitis Additional Impressions: Nausea and vomiting Hypocalcemia Departure Information Dispostion Home / Self-Care Condition GOOD Referrals Mingo Lin M.D. (PCP) Patient Instructions My [facility] Additional Instructions DO NOT drive, drink alcohol, operate machinery, or perform dangerous activities today. You were given medications in the ER that can affect your ability to safely function or operate a vehicle. Albuterol Inhaler: Take 2 puffs four times daily for five days, then as needed. Compazine 5 mg: Take one and allow it to dissolve in your mouth every four to six hours as needed for nausea or vomiting. Acetaminophen(Tylenol) may be used for fever or pain. Use 1000mg every six hours as needed. Avoid using more than 3000mg in a 24 hour period. Rest and drink plenty of fluids as tolerated. Slow sips of water or sports drinks are recommended instead of large amounts all at once. Continue current medications. Once your stomach is settled start with a clear liquid diet (jello, soup broth, etc.) and then advance as tolerated. You should avoid full, heavy meals for about 24 hrs from the time your symptoms resolved. Return to the ER for persistent vomiting, fevers, abdominal pain, chest pains, difficulty breathing, black or bloody stools, worsening of your condition, or as needed. Follow up with your primary physician in 2-3 days for a recheck of your current condition. Problem Qualifiers Primary Impression: Acute bronchitis Bronchitis organism: unspecified organism Qualified Codes: J20.9 - Acute bronchitis, unspecified Additional Impressions: Nausea and vomiting Vomiting type: unspecified Vomiting Intractability: non-intractable Qualified Codes: R11.2 - Nausea with vomiting, unspecified
--- NOTE | 2016-04-19 02:32 | EMERGENCY ROOM VISIT NOTE ---
ED Visit Note First contact with patient: 00:31 This Patient was discussed with the physician Bulk Sealer, AMARILIS Gross. The pertinent historical and physical exam findings were confirmed. I agree with the studies ordered and with the interpretations of these studies. I agree with the disposition and care plan.
--- NOTE | 2016-04-19 08:09 | DIAGNOSTIC IMAGING REPORT ---
CHEST 2 VIEWS ROUTINE HISTORY: cough COMPARISON: Chest 04/03/2016. FINDINGS: Right Port-A-Cath terminates in the distal SVC. Left-sided stimulator device with the leads terminating at the cervicothoracic spine junction. No pneumothorax. No pleural effusions. The heart is normal in size. The lungs are clear. IMPRESSION: No significant change compared to the prior study. No acute process. Electronically signed by: Talon Cruz M.D. 04/19/2016 8:07 AM Dictated Date/Time: 04/19/2016 8:05 AM
[2016-05-06] MEDS ORDERED: SERT50TA PO (02:11)
[2016-05-06] MEDS ORDERED: OXCA600T2 PO (02:14)
[2016-05-06] MEDS ORDERED: INSU1.2I SQ (03:33)
[2016-05-06] MEDS ORDERED: SULF10SO2 OPB (05:23)
[2016-05-06] MEDS ORDERED: ASCO10003 PO (08:01)
[2016-05-06] MEDS ORDERED: MULTTAB58 PO (08:08)
[2016-05-06] MEDS ORDERED: LECI1200 PO (08:18)
[2016-05-22] MEDS ORDERED: TRAZ1TAB52 PO (10:16)
[2016-05-22] MEDS ORDERED: LACT10SO30 PO (10:16)
[2016-05-22] MEDS ORDERED: SERT25TA PO (10:16)
[2016-05-22] MEDS ORDERED: TRIA37.5 PO (10:16)
[2016-05-22] MEDS ORDERED: SERT100T PO (10:16)
[2016-05-22] MEDS ORDERED: PRLSR20 PO (10:16)
[2016-05-22] MEDS ORDERED: VNTHFA/IN INH (10:23)
[2016-05-22] MEDS ORDERED: IPRASOL4 INH (10:23)
[2016-05-22] MEDS ORDERED: SPRIN/30 INH (10:23)
[2016-06-18] MEDS ORDERED: SYMIN160 INH (07:39)
[2016-06-18] MEDS ORDERED: BROM0.07 OPR (07:39)
[2016-06-18] MEDS ORDERED: PRED1SUS OPR (07:39)
[2016-06-18] MEDS ORDERED: INSU100I2 SC (07:42)
[2016-08-13] MEDS ORDERED: CARB25TA12 PO (13:37)
[2016-08-13] MEDS ORDERED: DESV50TA2 PO (13:37)
[2016-08-13] MEDS ORDERED: LACT10SO17 PO (13:37)
[2016-08-28] MEDS ORDERED: TOPI25CA2 PO (10:30)
[2016-09-19] MEDS ORDERED: LUTE20TA PO (12:03)
[2016-09-19] MEDS ORDERED: PUMP1CAP PO (12:03)
[2016-09-19] MEDS ORDERED: VITA1TAB4 PO (12:03)
[2016-09-19] MEDS ORDERED: CAFF3TAB PO (12:03)
[2016-09-19] MEDS ORDERED: MIRT15TA3 PO (12:03)
[2016-09-19] MEDS ORDERED: CHOL20009 PO (12:03)
[2016-09-19] MEDS ORDERED: CRAN1TAB PO (12:04)
[2016-09-19] MEDS ORDERED: TOPI25TA99 PO (12:07)
[2016-09-19] MEDS ORDERED: TOPI25TA10 PO (12:08)
[2016-09-28] MEDS ORDERED: Levetiracetam PO (09:59)
[2016-10-14] MEDS ORDERED: CARB25TA16 PO (10:30)
[2016-10-24] MEDS ORDERED: INSU1.2I SQ (12:57)
[2016-10-24] MEDS ORDERED: KETO10TA PO (12:57)
[2016-10-24] MEDS ORDERED: LACO50TA PO (12:57)
[2016-10-24] MEDS ORDERED: LACT10SO17 PO (12:57)
[2016-12-25] MEDS ORDERED: BUME1TAB PO (16:53)
[2016-12-25] MEDS ORDERED: KFL500 PO (16:53)
[2016-12-26] MEDS ORDERED: CIPR-255 PO (10:04)
== END 2016-04-19 02:38 | disposition home or self-care (01) ==
LOC: C.EDB 00:16 → C.EDC 02:38
DX: J20.9 Acute bronchitis, unspecified (principal); R11.2 Nausea with vomiting, unspecified; E83.51 Hypocalcemia; J45.909 Unspecified asthma, uncomplicated; F31.9 Bipolar disorder, unspecified; E11.9 Type 2 diabetes mellitus without complications; G40.909 Epilepsy, unspecified, not intractable, without status epilepticus; Z90.710 Acquired absence of both cervix and uterus; Z79.4 Long term (current) use of insulin

== ENCOUNTER 2016-05-06 08:57 | Inpatient (IN) | payer BC, OTHER ==
[~2016-05-06] VITALS: Ht 165.1 cm; Wt 91.0 kg
[~2016-05-06 08:57] MED LIST changes: +ASCO10003 PO; +INSU1.2I SQ; +LECI1200 PO; +MULTTAB58 PO; +OXCA600T2 PO; +SERT50TA PO; +SULF10SO2 OPB
[2016-05-06] MEDS ORDERED: PROC1TAB5 PO (09:22)
[2016-05-06] MEDS ORDERED: RIFA550T2 PO (09:22)
[2016-05-06] MEDS ORDERED: ONDANSETRON INJ 2 MG/ML 2 ML VIAL IV STA (09:24)
[2016-05-06] MEDS ORDERED: SODIUM CHLORIDE 0.9% 1000ML 1,000 ML IV STA (09:24)
--- NOTE | 2016-05-06 09:45 | EMERGENCY ROOM VISIT NOTE ---
History Report prepared by Broderick: Amalia Herring Under the Supervision of: Dr. Hemant Willard D.O. 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 History of Present Illness The patient is a 50 year old female who presents to the Emergency Room with complaints of persistent confusion that began approximately 18 hours ago. Per the patient's , the patient has been off balance, but denies any recent fall. He states that the patient began vomiting this morning and is additionally nauseous. The patient's states that the patient has been compliant with her Lactulose and notes a history of hepatic encephalopathy. He states that her last ammonium level was checked three weeks ago after a fall. The patient's states that the patient had a large appetite yesterday, stating that she ate a large meal at [employer] yesterday. He states that the patient has had small changes in her Trazodone and Zoloft dosages. The patient denies any history of a bowel obstruction, but notes gastroparesis Source of History: patient, spouse/significant other () Onset: 18 hours ago Position: other (global) Quality: other (confusion) Timing: other (persistent) Associated Symptoms: + nausea, + vomiting Review of Systems See HPI for pertinent positives & negatives. A total of 10 systems reviewed and were otherwise negative. 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 (17) Seizure disorder Surgical Problems: (1) H/O nasal septoplasty (2) History of appendectomy (3) History of cholecystectomy (4) History of hysterectomy (5) History of kyphoplasty (6) History of tonsillectomy (7) s/p spinal stimulator placement Family History Depression Hypertension Social History Smoking Status: Never Smoker Alcohol Use: none Drug Use: none Marital Status: Housing Status: lives with significant other Occupation Status: disabled Current/Historical Medications Scheduled Ascorbic Acid (Vitamin C), 1 TAB PO DAILY Benztropine Mesylate (Benztropine Mesylate), 1 MG PO BID Cranberry-Vitamin C-Vitamin E (Cranberry), 1 CAP PO TID Ferrous Sulfate (Ferrous Sulfate), 325 MG PO DAILY Fluticasone Propionate (Fluticasone Propionate), 1-2 SPRAYS ABRAHAN BID Insulin Glargine (Toujeo Solostar), 40 UNITS SQ DAILY Lactulose (Lactulose), 30 GM PO BID Lecithin (Lecithin), 1 CAP PO DAILY Levetiracetam (Levetiracetam), 1,500 MG PO BID Levothyroxine Sodium (Levothyroxine Sodium), 75 MCG PO DAILY Magnesium Oxide (Mag-Ox), 400 MG PO TID Meloxicam (Mobic), 1 TAB PO DAILY Multiple Vitamin (Multivitamin), 1 TABLET PO DAILY Omeprazole (Prilosec), 20 MG PO DAILY Oxcarbazepine (Trileptal), 600 MG PO BID Probiotic Product (Probiotic), 1 CAP PO DAILY Ranitidine HCl (Ranitidine HCl), 150 MG PO BID Rifaximin (Xifaxan), 550 MG PO BID Sertraline (Zoloft), 125 MG PO DAILY Sulfacetamide Sodium (Ophth) (Bleph-10), 2 DROPS OPB TID Topiramate (Topiramate), 25 MG PO BID Trazodone HCl (Trazodone HCl), 300 MG PO HS Triamterene/Hctz (Triamterene/Hctz 37.5-25MG), 1 TAB PO DAILY Vitamin A ([id number]), 10,000 INTER.UNIT PO DAILY Zinc Gluconate (Zinc), 50 MG PO BID Scheduled PRN Epinephrine (Epipen), 0.3 MG IM UD PRN for ALLERGIC REACTION Glucose-Vitamin C (Glucose), 1 CHW PO UD PRN for Hypoglycemia Prochlorperazine Maleate (Compazine), 10 MG PO Q8 PRN for Nausea or Vomiting Rizatriptan Benzoate (Rizatriptan Benzoate), 10 MG PO UD PRN for Headache Allergies Coded Allergies: Amoxicillin (Verified Allergy, Intermediate, HIVES, 05/06/16) Azithromycin (Verified Allergy, Intermediate, HIVES, 05/06/16) Baclofen (Verified Allergy, Intermediate, RASH, 05/06/16) Butalbital (Verified Allergy, Intermediate, HIVES, 05/06/16) Clarithromycin (Verified Allergy, Intermediate, RASH, 05/06/16) Dicyclomine (Verified Allergy, Intermediate, HIVES, 05/06/16) HIVES Penicillins (Verified Allergy, Intermediate, RASH, 05/06/16) PT STATES SHE GETS WELTS FROM CIPRO,LEVAQUIN ALLERGY PER DR ROBLES Tetracyclines (Verified Allergy, Intermediate, DOXYCYCLINE-HIVES, 05/06/16) Sulindac (Verified Allergy, Mild, ALLERGY LISTED "CLONDORAL"--HIVES, 05/06/16) Adhesives (Verified Allergy, Unknown, RASH, DUODERM=RED,ITCHY, 05/06/16) PLASTIC TAPE IS OK!!! DUODERM=RED,ITCHY Clindamycin (Verified Allergy, Unknown, HIVES, 05/06/16) Metronidazole (Verified Allergy, Unknown, SEIZURE, 05/06/16) Metoclopramide (Verified Adverse Reaction, Severe, SEIZURES, 05/06/16) Furosemide (Verified Adverse Reaction, Unknown, HIVES, 05/06/16) Physical Exam Vital Signs Date Time Temp Pulse Resp B/P Pulse Ox O2 Delivery O2 Flow Rate FiO2 05/06/16 10:45 76 20 127/72 97 Room Air 05/06/16 10:01 74 20 124/66 99 Room Air 05/06/16 09:36 71 05/06/16 09:00 36.9 77 16 140/71 99 Room Air Physical Exam GENERAL: Patient is listless and slow to respond to questions. She follows commands appropriately. EYES: The conjunctivae are clear. The pupils are round and reactive. EARS, NOSE, MOUTH AND THROAT: The nose is without any evidence of any deformity. Mucous membranes are dry. tongue is midline NECK: The neck is nontender and supple. RESPIRATORY: Normal respiratory effort is noted there is no evidence of wheezing rhonchi or rales CARDIOVASCULAR: Regular rate and rhythm noted there no murmurs rubs or gallops normal S1 normal S2 GASTROINTESTINAL: Distended, but soft. No specific guarding or rigidity noted. PELVIS: The Pelvis is stable. No tenderness to palpation is noted. BACK: No midline tenderness or or step-off noted range of motion in flexion extension as well as rotation no signs of muscle spasm noted MUSCULOSKELETAL/EXTREMITIES: There is no evidence of gross deformity full range of motion is noted in the hips and shoulders SKIN: There is no obvious evidence of any rash. There are no petechiae, pallor or cyanosis noted. NEUROLOGIC: Oriented x person, place, and time. No clonus noted. Patellar tendon reflexes are 2+ bilaterally. Medical Decision & Procedures ER Provider Diagnostic Interpretation: X-ray results as stated below per interpretation by me and the radiologist. ABDOMEN 2VIEW W/PA CHEST RTN CLINICAL HISTORY: ABDOMINAL PAIN/GI pain. Nausea. COMPARISON STUDY: 04/27/2016 FINDINGS: The soft tissues, psoas shadows, renal outlines and intestinal gas pattern appear normal. There is no evidence for bowel obstruction. There is no evidence for free intraperitoneal air. No abnormal abdominal calcifications are seen. A frontal view of the chest was performed and is unremarkable. PermCath in superior vena cava. Lungs are clear. IMPRESSION: No acute process. Nonobstructive bowel pattern. Electronically signed by: Kenroy Yates M.D. 05/06/2016 10:35 AM Dictated Date/Time: 05/06/2016 10:34 AM Laboratory Results 05/06/16 09:50 Red Blood Count 2.82, Mean Corpuscular Volume 102.5, Mean Corpuscular Hemoglobin 36.9, Mean Corpuscular Hemoglobin Concent 36.0, Mean Platelet Volume 9.9, Neutrophils (%) (Auto) 59.6, Lymphocytes (%) (Auto) 26.9, Monocytes (%) ( Auto) 7.7, Eosinophils (%) (Auto) 5.0, Basophils (%) (Auto) 0.8, Neutrophils # ( Auto) 1.55, Lymphocytes # (Auto) 0.70, Monocytes # (Auto) 0.20, Eosinophils # ( Auto) 0.13, Basophils # (Auto) 0.02 05/06/16 09:50 Test 05/06/16 09:50 White Blood Count 2.60 K/uL (4.8-10.8) Red Blood Count 2.82 M/uL (4.2-5.4) Hemoglobin 10.4 g/dL (12.0-16.0) Hematocrit 28.9 % (37-47) Mean Corpuscular Volume 102.5 fL (80-100) Mean Corpuscular Hemoglobin 36.9 pg (25-34) Mean Corpuscular Hemoglobin Concent 36.0 g/dl (32-36) Platelet Count 67 K/uL (130-400) Mean Platelet Volume 9.9 fL (7.4-10.4) Neutrophils (%) (Auto) 59.6 % Lymphocytes (%) (Auto) 26.9 % Monocytes (%) (Auto) 7.7 % Eosinophils (%) (Auto) 5.0 % Basophils (%) (Auto) 0.8 % Neutrophils # (Auto) 1.55 K/uL (1.4-6.5) Lymphocytes # (Auto) 0.70 K/uL (1.2-3.4) Monocytes # (Auto) 0.20 K/uL (0.11-0.59) Eosinophils # (Auto) 0.13 K/uL (0-0.5) Basophils # (Auto) 0.02 K/uL (0-0.2) RDW Standard Deviation 49.9 fL (36.4-46.3) RDW Coefficient of Variation 13.5 % (11.5-14.5) Immature Granulocyte % (Auto) 0.0 % Immature Granulocyte # (Auto) 0.00 K/uL (0.00-0.02) Platelet Estimate DECREASED Giant Platelets 1+ Ovalocytes 1+ Anion Gap 9.0 mmol/L (3-11) Est Creatinine Clear Calc Drug Dose 96.2 ml/min Estimated GFR () 102.7 Estimated GFR (Non- 88.6 BUN/Creatinine Ratio 26.3 (10-20) Calcium Level 7.9 mg/dl (8.5-10.1) Total Bilirubin 1.3 mg/dl (0.2-1) Direct Bilirubin 0.5 mg/dl (0-0.2) Aspartate Amino Transf (AST/SGOT) 38 U/L (15-37) Alanine Aminotransferase (ALT/SGPT) 35 U/L (12-78) Alkaline Phosphatase 157 U/L (45-117) Ammonia 165.0 umol/L (11-32) Total Protein 5.8 gm/dl (6.4-8.2) Albumin 3.1 gm/dl (3.4-5.0) Lipase 74 U/L (73-393) Laboratory results per my review. Medications Administered Medications (Trade) Dose Ordered Sig/Danita Route Start Time Stop Time Status Last Admin Dose Admin Sodium Chloride (Nss 1000ml) 1,000 ml @ 999 mls/hr Q1H1M STAT IV 05/06/16 09:24 05/06/16 10:24 DC 05/06/16 09:55 999 MLS/HR Ondansetron HCl (Zofran Inj) 4 mg NOW STAT IV 05/06/16 09:24 05/06/16 09:27 DC 05/06/16 09:56 4 MG Lactulose (Chronulac Syrup) 30 gm NOW STAT PO 05/06/16 11:03 05/06/16 11:04 DC 05/06/16 11:19 30 GM ED Course 0923: The patient was evaluated in room B2. A complete history and physical examination were performed. 0924: Ordered Zofran Inj 4 mg IV, Sodium Chloride 1000 ml @ 999 mls/hr IV. 1101: I reevaluated the patient and she is resting comfortably. I discussed the exam findings with her and her and I discussed the treatment plan. They verbalized complete understanding and agreement. The patient will be evaluated for further treatment. 1103: Ordered Lactulose 30 gm PO. 1151: I discussed the patients case with Dr. Suarez [facility]. He is going to evaluate the patient for further treatment. Medical Decision Differential diagnosis: Etiologies such as gastroenteritis, food borne illness, infections, appendicitis , diverticulitis, inflammatory bowel disease, obstruction, GI bleed, biliary pathology, as well as others were entertained. Nursing notes reviewed. Additional history is obtained from the patient's . The patient is a 50-year-old female who presented to emergency department for an evaluation of nausea and vomiting. The patient has a history of chronic gastroparesis. The patient was treated with IV fluids and IV antiemetics in the emergency department. She was also given her lactulose while she was in the emergency department. The patient was found have a very elevated sodium and signs of dehydration. The patient was managed in the senior living setting for a period of time but she now resides at home. I'm unsure what her care level is like it home because she lives with her significant other who works. I'm not sure if she is compliant with her medications as an outpatient. I discussed her case with the on-call [facility] hospitalist group. They've agreed to evaluate the patient in the emergency department for further management and disposition. Consults Time Called: [phone] Consulting Physician: TAVARES Davidson Returned Call: [phone] I discussed the patients case with TAVARES Davidson. He is going to evaluate the patient for further treatment. Impression Primary Impression: Dehydration Additional Impressions: Nausea and vomiting Hepatic encephalopathy Scribe Attestation The scribe's documentation has been prepared under my direction and personally reviewed by me in its entirety. I confirm that the note above accurately reflects all work, treatment, procedures, and medical decision making performed by me. Departure Information Dispostion Being Evaluated By Hospitalist Referrals Mingo Lin M.D. (PCP) Problem Qualifiers
[2016-05-06 10:07] LABS: HEMATOCRIT 28.9 % (37-47); MEAN CELL VOLUME 102.5 fL (80-100); MEAN CORPUSCULAR HEMOGLOBIN 36.9 pg (25-34); RED BLOOD COUNT 2.82 M/uL (4.2-5.4)
[2016-05-06 10:12] LABS: BASO % 0.8 %; BASO ABS # 0.02 K/uL (0-0.2); COMPLETE YES; LYMPH % 26.9 %; MEAN PLATELET VOLUME 9.9 fL (7.4-10.4); MONO % 7.7 %; NEUT % 59.6 %; PLATELET COUNT 67 K/uL (130-400)
[2016-05-06 10:27] LABS: BUN/CREATININE RATIO 26.3 (10-20); CALCIUM 7.9 mg/dl (8.5-10.1); CREATININE 0.78 mg/dl (0.60-1.20); POTASSIUM 3.7 mmol/L (3.5-5.1)
[2016-05-06 10:28] LABS: GIANT PLATELETS 1+; OVALOCYTES 1+; PLT ESTIMATE DECREASED
--- NOTE | 2016-05-06 10:37 | DIAGNOSTIC IMAGING REPORT ---
ABDOMEN 2VIEW W/PA CHEST RTN CLINICAL HISTORY: ABDOMINAL PAIN/GI pain. Nausea. COMPARISON STUDY: 04/27/2016 FINDINGS: The soft tissues, psoas shadows, renal outlines and intestinal gas pattern appear normal. There is no evidence for bowel obstruction. There is no evidence for free intraperitoneal air. No abnormal abdominal calcifications are seen. A frontal view of the chest was performed and is unremarkable. PermCath in superior vena cava. Lungs are clear. IMPRESSION: No acute process. Nonobstructive bowel pattern. Electronically signed by: Kenroy Yates M.D. 05/06/2016 10:35 AM Dictated Date/Time: 05/06/2016 10:34 AM
[2016-05-06] MEDS ORDERED: LACTULOSE SYRUP 20 GM/30 ML UDC PO STA (11:03)
[2016-05-06] MEDS ORDERED: PROCHLORPERAZINE MALEATE 10 MG TAB PO PRN (12:15)
[2016-05-06] MEDS ORDERED: ALUMINUM/MAGNESIUM/SIMETH (MAALOX MAX) 30 ML UDC PO PRN (12:15)
[2016-05-06] MEDS ORDERED: RIZATRIPTAN BENZOATE 10 MG TAB PO PRN (12:15)
[2016-05-06] MEDS ORDERED: POLYETHYLENE (MIRALAX) 17 GM PACK PO PRN (12:15)
[2016-05-06] MEDS ORDERED: MAGNESIUM HYDROXIDE SUSP 30 ML UDC PO PRN (12:15)
[2016-05-06] MEDS ORDERED: ONDANSETRON INJ 2 MG/ML 2 ML VIAL IV PRN (12:15)
--- NOTE | 2016-05-06 12:48 | History and Physical ---
History & Physical Date & Time of Service: May 06, 2016 at 12:30 Chief Complaint: Nausea, Confusion, Shakiness Primary Care Physician: Mingo Lin M.D. History of Present Illness Source: patient Patient is a 50 y/o female, with PMHx liver cirrhosis, T2DM, HTN,, seizure disorder, migraine, bipolar disorder, and anemia, who presented to the ED because of nausea and vomiting x1 day. Per patient, nausea and vomiting started the morning of 05/06; she attempted to take her medications/eat, but quickly threw it up. Per patient, she has been taking all her medications as prescribed. History is limited as patient is very drowsy. Patient states she was confused this AM- she is oriented x3. Patient denies any fever, chills, sweats, lightheadedness, dizziness, vision changes, CP, palpitations, edema, SOB , wheezing, cough, abdominal pain, diarrhea, urinary symptoms, melena, numbness/ tingling, weakness, muscle/joint pain, anxiety/depression, active bleeding, or new skin discoloration/changes. Past Medical/Surgical History Medical Problems: (1) Asthma Status: Chronic (2) Bipol I, Rec Epis (Or Current) Depressed, Unspecified Status: Chronic (3) Cirrhosis Permanent Comment: from nonalcoholic fatty liver disease Status: Chronic (4) Diab Ashley Wo Comp Type Ii Or Nos/Not Uncontrolled Status: Chronic (5) Diabetes Status: Chronic (6) Diabetic gastroparesis Status: Chronic (7) Heart murmur Status: Chronic (8) History of hepatic encephalopathy Status: Chronic (9) Major depressive disorder with psychotic features Permanent Comment: with previous suicide attempts Status: Chronic (10) Migraines Status: Chronic (11) Myelodysplastic syndrome Status: Chronic (12) Pancytopenia Status: Chronic (13) Peptic ulcer disease Status: Chronic (14) Portal Hypertension Status: Chronic (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 Status: Chronic (16) Seizure disorder Permanent Comment: with pseudoseizures Status: Chronic Surgical Problems: (1) H/O nasal septoplasty Status: Chronic (2) History of appendectomy Status: Chronic (3) History of cholecystectomy Status: Chronic (4) History of hysterectomy Status: Chronic (5) History of kyphoplasty Permanent Comment: lumbar Status: Chronic (6) History of tonsillectomy Status: Chronic (7) s/p spinal stimulator placement Status: Chronic Family History Depression Hypertension Social History Smoking Status: Never Smoker Drug Use: none Marital Status: Housing status: lives with family Occupational Status: disabled Immunizations History of Influenza Vaccine: Yes Influenza Vaccine Date: Feb 02, 2013 History of Tetanus Vaccine?: utd Tetanus Immunization Date: Jun 11, 2008 History of Pneumococcal: SEE LAST PACKET Pneumococcal Date: Nov 13, 2008 History of Hepatitis B Vaccine: Unknown Hepatitis Immunization Date: Jan 12, 1996 Multi-Drug Resistant Organisms History of MDRO: No Allergies Coded Allergies: Amoxicillin (Verified Allergy, Intermediate, HIVES, 05/06/16) Azithromycin (Verified Allergy, Intermediate, HIVES, 05/06/16) Baclofen (Verified Allergy, Intermediate, RASH, 05/06/16) Butalbital (Verified Allergy, Intermediate, HIVES, 05/06/16) Clarithromycin (Verified Allergy, Intermediate, RASH, 05/06/16) Dicyclomine (Verified Allergy, Intermediate, HIVES, 05/06/16) HIVES Penicillins (Verified Allergy, Intermediate, RASH, 05/06/16) PT STATES SHE GETS WELTS FROM CIPRO,LEVAQUIN ALLERGY PER DR ROBLES Tetracyclines (Verified Allergy, Intermediate, DOXYCYCLINE-HIVES, 05/06/16) Sulindac (Verified Allergy, Mild, ALLERGY LISTED "CLONDORAL"--HIVES, 05/06/16) Adhesives (Verified Allergy, Unknown, RASH, DUODERM=RED,ITCHY, 05/06/16) PLASTIC TAPE IS OK!!! DUODERM=RED,ITCHY Clindamycin (Verified Allergy, Unknown, HIVES, 05/06/16) Metronidazole (Verified Allergy, Unknown, SEIZURE, 05/06/16) Metoclopramide (Verified Adverse Reaction, Severe, SEIZURES, 05/06/16) Furosemide (Verified Adverse Reaction, Unknown, HIVES, 05/06/16) Home Medications Scheduled Ascorbic Acid (Vitamin C), 1 TAB PO DAILY Benztropine Mesylate (Benztropine Mesylate), 1 MG PO BID Cranberry-Vitamin C-Vitamin E (Cranberry), 1 CAP PO TID Ferrous Sulfate (Ferrous Sulfate), 325 MG PO DAILY Fluticasone Propionate (Fluticasone Propionate), 1-2 SPRAYS ABRAHAN BID Insulin Glargine (Toujeo Solostar), 40 UNITS SQ DAILY Lactulose (Lactulose), 30 GM PO BID Lecithin (Lecithin), 1 CAP PO DAILY Levetiracetam (Levetiracetam), 1,500 MG PO BID Levothyroxine Sodium (Levothyroxine Sodium), 75 MCG PO DAILY Magnesium Oxide (Mag-Ox), 400 MG PO TID Meloxicam (Mobic), 1 TAB PO DAILY Multiple Vitamin (Multivitamin), 1 TABLET PO DAILY Omeprazole (Prilosec), 20 MG PO DAILY Oxcarbazepine (Trileptal), 600 MG PO BID Probiotic Product (Probiotic), 1 CAP PO DAILY Ranitidine HCl (Ranitidine HCl), 150 MG PO BID Rifaximin (Xifaxan), 550 MG PO BID Sertraline (Zoloft), 125 MG PO DAILY Sulfacetamide Sodium (Ophth) (Bleph-10), 2 DROPS OPB TID Topiramate (Topiramate), 25 MG PO BID Trazodone HCl (Trazodone HCl), 300 MG PO HS Triamterene/Hctz (Triamterene/Hctz 37.5-25MG), 1 TAB PO DAILY Vitamin A ([id number]), 10,000 INTER.UNIT PO DAILY Zinc Gluconate (Zinc), 50 MG PO BID Scheduled PRN Epinephrine (Epipen), 0.3 MG IM UD PRN for ALLERGIC REACTION Glucose-Vitamin C (Glucose), 1 CHW PO UD PRN for Hypoglycemia Prochlorperazine Maleate (Compazine), 10 MG PO Q8 PRN for Nausea or Vomiting Rizatriptan Benzoate (Rizatriptan Benzoate), 10 MG PO UD PRN for Headache Physical Exam Vital Signs Date Time Temp Pulse Resp B/P Pulse Ox O2 Delivery O2 Flow Rate FiO2 05/06/16 10:45 76 20 127/72 97 Room Air 05/06/16 10:01 74 20 124/66 99 Room Air 05/06/16 09:36 71 05/06/16 09:00 36.9 77 16 140/71 99 Room Air General Appearance: no apparent distress, + obese Head: normocephalic, atraumatic Eyes: normal inspection, PERRL ENT: hearing grossly normal Neck: supple Respiratory/Chest: lungs clear, no respiratory distress, no accessory muscle use Cardiovascular: regular rate, rhythm Abdomen/GI: normal bowel sounds, non tender, soft Back: normal inspection Extremities/Musculoskelatal: no calf tenderness, no pedal edema Neurologic/Psych: alert, oriented x 3, + pertinent finding (drowsy) Skin: normal color, warm/dry, no rash Diagnostics Laboratory Results Results Past 24 Hours Test 05/06/16 09:50 Range/Units White Blood Count 2.60 4.8-10.8 K/uL Red Blood Count 2.82 4.2-5.4 M/uL Hemoglobin 10.4 12.0-16.0 g/dL Hematocrit 28.9 37-47 % Mean Corpuscular Volume 102.5 80-100 fL Mean Corpuscular Hemoglobin 36.9 25-34 pg Mean Corpuscular Hemoglobin Concent 36.0 32-36 g/dl Platelet Count 67 130-400 K/uL Mean Platelet Volume 9.9 7.4-10.4 fL Neutrophils (%) (Auto) 59.6 % Lymphocytes (%) (Auto) 26.9 % Monocytes (%) (Auto) 7.7 % Eosinophils (%) (Auto) 5.0 % Basophils (%) (Auto) 0.8 % Neutrophils # (Auto) 1.55 1.4-6.5 K/uL Lymphocytes # (Auto) 0.70 1.2-3.4 K/uL Monocytes # (Auto) 0.20 0.11-0.59 K/uL Eosinophils # (Auto) 0.13 0-0.5 K/uL Basophils # (Auto) 0.02 0-0.2 K/uL RDW Standard Deviation 49.9 36.4-46.3 fL RDW Coefficient of Variation 13.5 11.5-14.5 % Immature Granulocyte % (Auto) 0.0 % Immature Granulocyte # (Auto) 0.00 0.00-0.02 K/uL Platelet Estimate DECREASED Giant Platelets 1+ Ovalocytes 1+ Sodium Level 148 136-145 mmol/L Potassium Level 3.7 3.5-5.1 mmol/L Chloride Level 113 98-107 mmol/L Carbon Dioxide Level 26 21-32 mmol/L Anion Gap 9.0 3-11 mmol/L Blood Urea Nitrogen 21 7-18 mg/dl Creatinine 0.78 0.60-1.20 mg/dl Est Creatinine Clear Calc Drug Dose 96.2 ml/min Estimated GFR () 102.7 Estimated GFR (Non- 88.6 BUN/Creatinine Ratio 26.3 10-20 Random Glucose 170 70-99 mg/dl Calcium Level 7.9 8.5-10.1 mg/dl Total Bilirubin 1.3 0.2-1 mg/dl Direct Bilirubin 0.5 0-0.2 mg/dl Aspartate Amino Transf (AST/SGOT) 38 15-37 U/L Alanine Aminotransferase (ALT/SGPT) 35 12-78 U/L Alkaline Phosphatase 157 45-117 U/L Ammonia 165.0 11-32 umol/L Total Protein 5.8 6.4-8.2 gm/dl Albumin 3.1 3.4-5.0 gm/dl Lipase 74 73-393 U/L Diagnostic Radiology ABDOMEN 2VIEW W/PA CHEST RTN CLINICAL HISTORY: ABDOMINAL PAIN/GI pain. Nausea. COMPARISON STUDY: 04/27/2016 FINDINGS: The soft tissues, psoas shadows, renal outlines and intestinal gas pattern appear normal. There is no evidence for bowel obstruction. There is no evidence for free intraperitoneal air. No abnormal abdominal calcifications are seen. A frontal view of the chest was performed and is unremarkable. PermCath in superior vena cava. Lungs are clear. IMPRESSION: No acute process. Nonobstructive bowel pattern. Electronically signed by: Kenroy Yates M.D. 05/06/2016 10:35 AM Dictated Date/Time: 05/06/2016 10:34 AM The status of this report is Signed. Draft = Not yet reviewed or approved by Radiologist. Signed = Reviewed and approved by Radiologist. Impression Assessment and Plan 50 y/o female, with PMHx liver cirrhosis, T2DM, HTN,, seizure disorder, migraine , bipolar disorder, and anemia, who presented to the ED because of nausea and vomiting x1 day. Liver Cirrhosis - Hyperammonemia @165 with nausea and vomiting: - Admit med/surg - NPO except meds, advance diet as tolerated by patient - IV Zofran PRN - Abd XR/CXR -No acute process. Nonobstructive bowel pattern. - Hydrate with 1/2 NSS at 100 mL/hr due to hypernatremia at 148 - Lactulose 30 g increased from BID to TID - Rifaxamin 550 mg BID - will give dose now as AM dose missed - Check U/A - Trend ammonia levels - Follow CBC and BMP T2DM: - Patient reports Toujeo 40 units at home - Lantus 20 units SC daily as reduce dose for NPO status. Monitor need for adjustments. - SSI - goal 130-180 with correction factor 35 - Accu-Checks HTN: - Continue Triamterene/HCTZ 1 tab PO daily Seizure Disorder: - Continue Keppra 1500 mg BID - Continue Trileptal 600 mg PO BID Migraine: - Continue Topamax 25 mg PO BID Bipolar disorder: - Continue Trazodone 300 mg HS Pancytopenia, chronic- stable: - Ferrous Sulfate 325 mg PO daily - Continue to trend CBC DVT prophylaxis: - MIRYAM/SCDs - Will withhold chemical prophylaxis in setting of thrombocytopenia 2/2 Myelodysplastic syndrome Code Status: - FULL RESUSCITATION Dispo: - From home, lives with i personally examined pt and verified all tai points w T Murar[place] PAC nausea/vomiting some constipation vitals noted, appears somewhat diaphoretic and nauseated. epigastric ttp without rebound, lower abdominal tenderness without rebound. Xrays reviewed - fairly significant stool given clinical findings nausea/vomiting/constipation - exam c/w gastritis (probably from being sick) and constipation - treat for both. hopefully anticipate fairly rapid resolution -based on med list appears no longer on narcotics so ?adherence with lactulose ( this has been a longstanding issue) but also given her long and complex med hx it's possible that she's still on pain meds contributing to slow bowel and making situation worse that she didn't remember/forgot to report as meds - check urine drug screen Level of Care Med/Surg Resuscitation Status FULL RESUSCITATION VTE Prophylaxis VTE Risk Assessment Done? Y/N: Yes Risk Level: Moderate Given or contraindicated: T.E.D. Stockings, SCD's
[2016-05-06] MEDS ORDERED: ZINC1TAB PO (13:24)
[2016-05-06] MEDS ORDERED: GLUCOSE 10 TABS/TUBE PO PRN (13:30)
[2016-05-06] MEDS ORDERED: DEXTROSE 50% 50 ML SYR IV PRN (13:30)
[2016-05-06] MEDS ORDERED: GLUCOSE 40% GEL 15 GM TUBE PO PRN (13:30)
[2016-05-06] MEDS ORDERED: GLUCAGON FOR INJ 1 MG VIAL SQ PRN (13:30)
[2016-05-06] MEDS ORDERED: SULFACETAMIDE SODIUM 10% OP SOLN 15 ML BTL OPB SCH (14:00)
[2016-05-06] MEDS ORDERED: NON-FORMULARY MEDICATION (Cranberry-Vitamin C-Vitamin E (Cranberry) 1 CAP) PO SCH (14:00)
[2016-05-06] MEDS ORDERED: MISCCAP80 PO (14:56)
[2016-05-06] MEDS ORDERED: TPM25 PO (15:33)
[2016-05-06] MEDS ORDERED: MELO7.5T6 PO (15:34)
[2016-05-06] MEDS ORDERED: BENZ2TAB6 PO (15:35)
[2016-05-06 15:37] VITALS: BP 124/74; PULSE 65; TEMP 36.8; O2SAT 99
[2016-05-06] MEDS ORDERED: FLNIN/ NAE (15:48)
[2016-05-06] MEDS ORDERED: RIZA1TAB11 PO (15:48)
[2016-05-06] MEDS ORDERED: TRIATAB3 PO (16:00)
[2016-05-06] MEDS: SODIUM CHLORIDE 0.45% 1000ML 1,000 ML IV SCH (16:04)
[2016-05-06] MEDS: MAGNESIUM OXIDE 400 MG TAB PO SCH ×2 (16:05→20:49)
[2016-05-06] MEDS ORDERED: RANI150T2 PO (16:06)
[2016-05-06] MEDS ORDERED: LEVE100021 PO (16:06)
[2016-05-06] MEDS ORDERED: GLUC-338 PO (16:09)
[2016-05-06] MEDS ORDERED: MAGN400T6 PO (16:25)
[2016-05-06] MEDS ORDERED: LEVO75TA5 PO (16:49)
[2016-05-06] MEDS ORDERED: FERR325T5 PO (16:53)
[2016-05-06] MEDS ORDERED: OMEP20CA9 PO (17:26)
[2016-05-06] MEDS ORDERED: SOD PHOSPHATE/SOD BIPHOSPHATE ENEMA 132 ML BTL PR ONE (17:30)
[2016-05-06 18:39] VITALS: BP 124/74; PULSE 65; TEMP 36.8; O2SAT 99; Ht 165.1 cm; Wt 91.0 kg
[2016-05-06] MEDS: INSULIN ASPART 100 UNITS/ML 3 ML PEN SC SCH ×2 (18:48→21:08)
[2016-05-06] MEDS ORDERED: LACTULOSE SYRUP 30 GM/45 ML UDP PO SCH (20:00)
[2016-05-06] MEDS ORDERED: VITA1CAP11 PO (20:10)
[2016-05-06] MEDS ORDERED: EPP3/2 IM (20:35)
[2016-05-06] MEDS: LACTULOSE SYRUP 30 GM/45 ML UDP PO SCH (20:47)
[2016-05-06] MEDS: FLUTICASONE PROPIONATE NA SPR 16 GM BTL NAE SCH (20:47)
[2016-05-06] MEDS: BENZTROPINE MESYLATE 1 MG TAB PO SCH (20:48)
[2016-05-06] MEDS: LEVETIRACETAM 500 MG TAB PO SCH (20:49)
[2016-05-06] MEDS: TOPIRAMATE 25 MG TAB PO SCH (20:50)
[2016-05-06] MEDS: RIFAXIMIN TAB 550 MG TAB PO SCH (20:51)
[2016-05-06] MEDS: OXCARBAZEPINE 150 MG TAB PO SCH (20:51)
[2016-05-06] MEDS: RANITIDINE HCL 150 MG TAB PO SCH (20:52)
[2016-05-06] MEDS: TRAZODONE HCL 100 MG TAB PO SCH (20:52)
[2016-05-06] MEDS ORDERED: CRAN1CAP15 PO (21:17)
[2016-05-06 23:41] VITALS: BP 131/81; PULSE 72; TEMP 36.7; O2SAT 96
[2016-05-07] MEDS: SODIUM CHLORIDE 0.45% 1000ML 1,000 ML IV SCH ×3 (01:30→20:57)
[2016-05-07 02:32] LABS: URINE APPEARANCE CLEAR (CLEAR); URINE BILIRUBIN NEG (NEG); URINE COLOR DK YELLOW; URINE EPITHELIAL CELL AUTO 0-5 /lpf (0-5); URINE NITRITE NEG (NEG); URINE PH 5.5 (4.5-7.5); URINE SPECIFIC GRAVITY 1.017 (1.000-1.030); UROBILINOGEN NEG (NEG); ZZUR CULT IF INDIC CLEAN CATCH YES
[2016-05-07 02:33] LABS: MANUAL MICROSCOPIC REQUIRED? NO; REVIEW REQ? YES
[2016-05-07] MEDS: LEVOTHYROXINE 75 MCG TAB PO SCH ×2 (06:30→08:44)
[2016-05-07 06:37] LABS: HEMATOCRIT 27.6 % (37-47); MEAN CELL VOLUME 102.6 fL (80-100); MEAN CORPUSCULAR HEMOGLOBIN 36.4 pg (25-34); MEAN CORPUSCULAR HGB CONC 35.5 g/dl (32-36); RED BLOOD COUNT 2.69 M/uL (4.2-5.4); WHITE BLOOD COUNT 3.25 K/uL (4.8-10.8)
[2016-05-07 06:41] LABS: MEAN PLATELET VOLUME 10.2 fL (7.4-10.4); PLATELET COUNT 67 K/uL (130-400)
[2016-05-07 06:46] LABS: BUN/CREATININE RATIO 20.8 (10-20); CALCIUM 7.4 mg/dl (8.5-10.1); CREATININE 0.65 mg/dl (0.60-1.20); POTASSIUM 3.7 mmol/L (3.5-5.1)
[2016-05-07 06:48] LABS: ALB/GLOB RATIO 1.1 (0.9-2)
[2016-05-07 07:42] VITALS: BP 127/78; PULSE 68; TEMP 36.8
[2016-05-07 07:46] VITALS: O2SAT 99
--- NOTE | 2016-05-07 07:47 | Hospitalist Progress Note ---
Hospitalist Progress Note Date of Service May 07, 2016. (Jade Aaron ., MACO) Subjective Pt evaluation today including: conversation w/ patient, physical exam, chart review, lab review, review of inpatient medication list Voiding: no voiding problems, no incontinence Patient states she is feeling better today. +mild nausea. Denies any vomiting. + abdominal pain. Would like to advance her diet to a full liquid. +BM. Patient denies any fever, chills, sweats, lightheadedness, dizziness, vision changes, CP , palpitations, edema, SOB, wheezing, cough, vomiting, diarrhea, urinary symptoms, melena, numbness/tingling, weakness, muscle/joint pain, anxiety/ depression, active bleeding, or new skin discoloration/changes. (Jade Aaron ., MACO) Medications Current Inpatient Medications Medications (Trade) Dose Ordered Sig/Danita Route Start Time Stop Time Status Last Admin Dose Admin Al Hydrox/Mg Hydrox/Simethicone (Maalox Max Susp) 15 ml Q4H PRN PO 05/06/16 12:15 06/05/16 12:14 Magnesium Hydroxide (Milk Of Magnesia Susp) 30 ml Q6H PRN PO 05/06/16 12:15 06/05/16 12:14 Polyethylene (Miralax Powder Packet) 17 gm DAILY PRN PO 05/06/16 12:15 06/05/16 12:14 Ondansetron HCl (Zofran Inj) 4 mg Q6H PRN IV 05/06/16 12:15 06/05/16 12:14 Ferrous Sulfate (Feosol Tab) 325 mg DAILY PO 05/07/16 08:00 06/06/16 08:59 05/07/16 08:52 325 MG Fluticasone Propionate (Flonase Nasal [place]) 1 sprays BID ABRAHAN 05/06/16 20:00 06/05/16 20:59 05/07/16 08:45 1 SPRAYS Levothyroxine Sodium (Synthroid Tab) 75 mcg DAILYBB PO 05/07/16 06:30 06/06/16 06:59 05/07/16 08:44 75 MCG Magnesium Oxide (Mag-Ox Tab) 400 mg TID PO 05/06/16 14:00 06/05/16 13:59 05/07/16 08:56 400 MG Multivitamins (Multivitamin Tab) 1 tab DAILY PO 05/07/16 08:00 06/06/16 08:59 05/07/16 08:46 1 TAB Oxcarbazepine (Trileptal Tab) 600 mg BID PO 05/06/16 20:00 06/05/16 20:59 05/07/16 08:56 600 MG Prochlorperazine Maleate (Compazine Tab) 10 mg Q8 PRN PO 05/06/16 12:15 06/05/16 12:14 05/07/16 08:45 10 MG Ranitidine HCl (zANTac TAB) 150 mg BID PO 05/06/16 20:00 06/05/16 20:59 05/07/16 08:55 150 MG Rifaximin (Xifaxan Tab) 550 mg BID PO 05/06/16 20:00 06/05/16 20:59 05/07/16 08:55 550 MG Sertraline HCl (Zoloft Tab) 125 mg DAILY PO 05/07/16 08:00 06/06/16 08:59 05/07/16 08:54 125 MG Topiramate (Topamax Tab) 25 mg BID PO 05/06/16 20:00 06/05/16 20:59 05/07/16 08:56 25 MG Trazodone HCl (Desyrel Tab) 300 mg HS PO 05/06/16 21:00 06/05/16 20:59 05/06/16 20:52 300 MG Triamterene/HCTZ (Maxzide 37.5/25 Tab) 1 tab DAILY PO 05/07/16 08:00 06/06/16 08:59 05/07/16 08:46 1 TAB Ascorbic Acid (Vitamin C Tab) 500 mg DAILY PO 05/07/16 08:00 06/06/16 08:59 05/07/16 08:46 500 MG Benztropine Mesylate (Cogentin Tab) 1 mg BID PO 05/06/16 20:00 06/05/16 20:59 05/07/16 08:57 1 MG Levetiracetam (Keppra Tab) 1,500 mg BID PO 05/06/16 20:00 06/05/16 20:59 05/07/16 08:56 1,500 MG Pantoprazole Sodium (Protonix Tab) 40 mg DAILY PO 05/07/16 08:00 06/06/16 08:59 05/07/16 08:52 40 MG Lactobacillus Acidophilus (Floranex Tab) 1 tab DAILY PO 05/07/16 08:00 06/06/16 08:59 05/07/16 08:55 1 TAB Rizatriptan Benzoate (Maxalt Tab) 10 mg DAILY PRN PO 05/06/16 12:15 06/05/16 12:14 Miscellaneous Information (Order Awaiting Action) 1 ea QS N/A 05/06/16 16:00 06/05/16 15:59 Miscellaneous Information (Order Awaiting Action) 1 ea QS N/A 05/06/16 16:00 06/05/16 15:59 Insulin Aspart (novoLOG ASPART) SLIDING SCALE G... ACHS SC 05/06/16 16:00 06/05/16 15:59 05/06/16 21:08 5 UNITS Glucose (Glucose 40% Gel) 15-30 GRAMS 15 GRAMS... UD PRN PO 05/06/16 13:30 06/05/16 13:29 Glucose (Glucose Chew Tab) 4-8 Tablets 4 Tabl... UD PRN PO 05/06/16 13:30 06/05/16 13:29 Dextrose (Dextrose 50% 50ML Syringe) 25-50ML OF 50% DW IV FOR... UD PRN IV 05/06/16 13:30 06/05/16 13:29 Glucagon (Glucagon Inj) 1 mg UD PRN SQ 05/06/16 13:30 06/05/16 13:29 Insulin Glargine (Lantus Solostar Pen) 20 unit DAILY SC 05/07/16 08:00 06/06/16 08:59 05/07/16 09:11 20 UNIT Lactulose 30 gm 30 gm Q4HWA PO 05/06/16 20:00 06/05/16 19:59 05/07/16 08:57 30 GM Sodium Chloride (1/2 Nss 1000ml) 1,000 ml @ 75 mls/hr [id number] IV 05/07/16 09:00 06/06/16 08:59 05/07/16 09:15 75 MLS/HR (Murarik, Jade ., PA-C) Objective Vital Signs Date Time Temp Pulse Resp B/P Pulse Ox O2 Delivery O2 Flow Rate FiO2 05/07/16 00:00 Room Air 05/06/16 23:41 36.7 72 20 131/81 96 Room Air 05/06/16 18:39 36.8 65 16 124/74 99 Room Air 05/06/16 15:37 36.8 65 16 124/74 99 Room Air 05/06/16 14:51 72 20 101/45 94 05/06/16 14:39 72 20 101/45 94 Room Air 05/06/16 13:07 64 05/06/16 12:52 66 18 102/64 96 Room Air 05/06/16 10:45 76 20 127/72 97 Room Air 05/06/16 10:01 74 20 124/66 99 Room Air 05/06/16 09:36 71 05/06/16 09:00 36.9 77 16 140/71 99 Room Air (Jade Aaron ., PA-C) Physical Exam General Appearance: no apparent distress, + obese Eyes: normal inspection, PERRL ENT: hearing grossly normal Neck: supple Respiratory/Chest: lungs clear, no respiratory distress, no accessory muscle use Cardiovascular: regular rate, rhythm, no edema Abdomen: normal bowel sounds, soft, + tenderness (mild tenderness to palpation of lower abdomen ) Extremities: no pedal edema, no calf tenderness Neurologic/Psychiatric: alert, normal mood/affect, oriented x 3 Skin: normal color, warm/dry, no rash (Jade Aaron, PA-C) Laboratory Results Last 24 Hours Test 05/06/16 09:50 05/06/16 18:10 05/07/16 02:00 05/07/16 05:50 White Blood Count 2.60 K/uL 3.25 K/uL Red Blood Count 2.82 M/uL 2.69 M/uL Hemoglobin 10.4 g/dL 9.8 g/dL Hematocrit 28.9 % 27.6 % Mean Corpuscular Volume 102.5 fL 102.6 fL Mean Corpuscular Hemoglobin 36.9 pg 36.4 pg Mean Corpuscular Hemoglobin Concent 36.0 g/dl 35.5 g/dl Platelet Count 67 K/uL 67 K/uL Mean Platelet Volume 9.9 fL 10.2 fL Neutrophils (%) (Auto) 59.6 % Lymphocytes (%) (Auto) 26.9 % Monocytes (%) (Auto) 7.7 % Eosinophils (%) (Auto) 5.0 % Basophils (%) (Auto) 0.8 % Neutrophils # (Auto) 1.55 K/uL Lymphocytes # (Auto) 0.70 K/uL Monocytes # (Auto) 0.20 K/uL Eosinophils # (Auto) 0.13 K/uL Basophils # (Auto) 0.02 K/uL RDW Standard Deviation 49.9 fL 50.1 fL RDW Coefficient of Variation 13.5 % 13.7 % Immature Granulocyte % (Auto) 0.0 % Immature Granulocyte # (Auto) 0.00 K/uL Platelet Estimate DECREASED Giant Platelets 1+ Ovalocytes 1+ Sodium Level 148 mmol/L 149 mmol/L Potassium Level 3.7 mmol/L 3.7 mmol/L Chloride Level 113 mmol/L 113 mmol/L Carbon Dioxide Level 26 mmol/L 25 mmol/L Anion Gap 9.0 mmol/L 11.0 mmol/L Blood Urea Nitrogen 21 mg/dl 14 mg/dl Creatinine 0.78 mg/dl 0.65 mg/dl Est Creatinine Clear Calc Drug Dose 96.2 ml/min 115.4 ml/min Estimated GFR () 102.7 120.0 Estimated GFR (Non- 88.6 103.5 BUN/Creatinine Ratio 26.3 20.8 Random Glucose 170 mg/dl 73 mg/dl Calcium Level 7.9 mg/dl 7.4 mg/dl Total Bilirubin 1.3 mg/dl 1.3 mg/dl Direct Bilirubin 0.5 mg/dl Aspartate Amino Transf (AST/SGOT) 38 U/L 32 U/L Alanine Aminotransferase (ALT/SGPT) 35 U/L 31 U/L Alkaline Phosphatase 157 U/L 125 U/L Ammonia 165.0 umol/L 75.0 umol/L 58.0 umol/L Total Protein 5.8 gm/dl 5.3 gm/dl Albumin 3.1 gm/dl 2.8 gm/dl Lipase 74 U/L Urine Color DK YELLOW Urine Appearance CLEAR Urine pH 5.5 Urine Specific [place] 1.017 Urine Protein NEG Urine Glucose (UA) NEG Urine Ketones NEG Urine Occult Blood NEG Urine Nitrite NEG Urine Bilirubin NEG Urine Urobilinogen NEG Urine Leukocyte Esterase LARGE Urine WBC (Auto) >30 /hpf Urine RBC (Auto) 5-10 /hpf Urine Hyaline Casts (Auto) 0 /lpf Urine Epithelial Cells (Auto) 0-5 /lpf Urine Bacteria (Auto) NEG Urine Crystals Globulin 2.5 gm/dl Albumin/Globulin Ratio 1.1 (Jade Aaron, MACO) Assessment and Plan 50 y/o female, with PMHx liver cirrhosis, T2DM, HTN,, seizure disorder, migraine , bipolar disorder, and anemia, who presented to the ED because of nausea and vomiting x1 day. Liver Cirrhosis - Hyperammonemia @165 with nausea and vomiting: - Admit med/surg - NPO except meds, advance diet as tolerated by patient - IV Zofran PRN + IV Compazine PRN - Abd XR/CXR - No acute process. Nonobstructive bowel pattern. - Hydrate with 1/2 NSS at 100 mL/hr - Lactulose 30 g increased from BID to Q4HWA - Rifaximin 550 mg BID - U/A dirty, urine culture pending- denies any urinary symptoms. Pending urine toxicology. - Trend ammonia levels- 165 at admission on 05/06--> 75 @ 1800, 58 on 2/7 AM labs - Follow CBC and BMP Constipation: - Increased Lactulose + fleet enema- 2 bowel movements reported T2DM: - Patient reports Toujeo 38 units at home - Lantus 20 units SC daily as reduce dose for NPO status. Monitor need for adjustments. - SSI - goal 130-180 with correction factor 35 - Accu-Checks HTN: - Continue Triamterene/HCTZ 1 tab PO daily Seizure Disorder: - Continue Keppra 1500 mg BID - Continue Trileptal 600 mg PO BID Migraine: - Continue Topamax 25 mg PO BID Bipolar disorder: - Continue Trazodone 300 mg HS Pancytopenia, chronic- stable: - Ferrous Sulfate 325 mg PO daily - Continue to trend CBC DVT prophylaxis: - MIRYAM/SCDs - Will withhold chemical prophylaxis in setting of thrombocytopenia Code Status: - FULL RESUSCITATION Dispo: - From home, lives with . Hopeful discharge on 05/08. (Jade Aaron ., AMARILISC) chart reviewed, case d/w T [place] PAC - agree w above (Eagle Crocker D.O.)
[2016-05-07] MEDS ORDERED: LECITHIN PO SCH (08:00)
[2016-05-07] MEDS ORDERED: MELOXICAM 7.5 MG TAB PO SCH (08:00)
[2016-05-07] MEDS ORDERED: INSULIN GLARGINE PER UNIT 20 UNITS in SYRINGE 0 ML SC SCH (08:00)
[2016-05-07] MEDS: FLUTICASONE PROPIONATE NA SPR 16 GM BTL NAE SCH ×2 (08:45→20:54)
[2016-05-07] MEDS: MULTIVITAMIN TAB PO SCH (08:46)
[2016-05-07] MEDS: ASCORBIC ACID 500 MG TAB PO SCH (08:46)
[2016-05-07] MEDS: TRIAMTERENE/HCTZ 37.5/25MG TAB PO SCH (08:46)
[2016-05-07] MEDS: FERROUS SULFATE 325 MG TAB PO SCH (08:52)
[2016-05-07] MEDS: PANTOprazole SOD 40 MG TAB PO SCH (08:52)
[2016-05-07] MEDS: SERTRALINE HCL 50 MG TAB PO SCH (08:54)
[2016-05-07] MEDS: RANITIDINE HCL 150 MG TAB PO SCH ×2 (08:55→20:55)
[2016-05-07] MEDS: RIFAXIMIN TAB 550 MG TAB PO SCH ×2 (08:55→20:56)
[2016-05-07] MEDS: LACTOBACILLUS ACIDOPHILUS (FLORANEX) TAB PO SCH (08:55)
[2016-05-07] MEDS: MAGNESIUM OXIDE 400 MG TAB PO SCH ×3 (08:56→20:56)
[2016-05-07] MEDS: TOPIRAMATE 25 MG TAB PO SCH ×2 (08:56→20:55)
[2016-05-07] MEDS: OXCARBAZEPINE 150 MG TAB PO SCH ×2 (08:56→20:56)
[2016-05-07] MEDS: LEVETIRACETAM 500 MG TAB PO SCH ×2 (08:56→20:57)
[2016-05-07] MEDS: BENZTROPINE MESYLATE 1 MG TAB PO SCH ×2 (08:57→20:56)
[2016-05-07] MEDS: LACTULOSE SYRUP 30 GM/45 ML UDP PO SCH ×4 (08:57→20:55)
[2016-05-07] MEDS: INSULIN ASPART 100 UNITS/ML 3 ML PEN SC SCH ×4 (08:57→20:54)
[2016-05-07] MEDS ORDERED: INSULIN GLARGINE 40 UNIT SQ SCH (09:00)
[2016-05-07] MEDS: INSULIN GLARGINE SOLOSTAR 100 UNITS/ML 3 ML PEN SC SCH (09:11)
[2016-05-07] MEDS ORDERED: PROCHLORPERAZINE INJ 5 MG in SYRINGE 4 ML IV PRN (10:45)
[2016-05-07 12:17] LABS: BENZODIAZEPINE, URINE NEG (NEG); COCAINE,URINE NEG (NEG); PHENCYCLIDINE, URINE NEG (NEG)
[2016-05-07 15:57] VITALS: BP 155/79; PULSE 67; TEMP 36.6; O2SAT 99
[2016-05-07] MEDS: TRAZODONE HCL 100 MG TAB PO SCH (20:55)
[2016-05-08 00:19] VITALS: BP 107/67; PULSE 64; TEMP 36.8; O2SAT 95
[2016-05-08 05:25] LABS: HEMATOCRIT 25.4 % (37-47); MEAN CELL VOLUME 100.4 fL (80-100); MEAN CORPUSCULAR HEMOGLOBIN 37.2 pg (25-34); RED BLOOD COUNT 2.53 M/uL (4.2-5.4); WHITE BLOOD COUNT 3.25 K/uL (4.8-10.8)
[2016-05-08 05:27] LABS: MEAN PLATELET VOLUME 9.8 fL (7.4-10.4); PLATELET COUNT 64 K/uL (130-400)
[2016-05-08] MEDS: LEVOTHYROXINE 75 MCG TAB PO SCH (05:47)
[2016-05-08 06:03] LABS: BUN/CREATININE RATIO 18.6 (10-20); CALCIUM 7.4 mg/dl (8.5-10.1); CREATININE 0.65 mg/dl (0.60-1.20); POTASSIUM 3.9 mmol/L (3.5-5.1)
[2016-05-08 06:05] LABS: ALB/GLOB RATIO 1.2 (0.9-2)
[2016-05-08 07:57] VITALS: BP 102/62; PULSE 84; TEMP 36.5; O2SAT 98
[2016-05-08] MEDS: RANITIDINE HCL 150 MG TAB PO SCH (08:22)
[2016-05-08] MEDS: FERROUS SULFATE 325 MG TAB PO SCH (08:22)
[2016-05-08] MEDS: RIFAXIMIN TAB 550 MG TAB PO SCH (08:22)
[2016-05-08] MEDS: TRIAMTERENE/HCTZ 37.5/25MG TAB PO SCH (08:22)
[2016-05-08] MEDS: PANTOprazole SOD 40 MG TAB PO SCH (08:22)
[2016-05-08] MEDS: MULTIVITAMIN TAB PO SCH (08:22)
[2016-05-08] MEDS: ASCORBIC ACID 500 MG TAB PO SCH (08:22)
[2016-05-08] MEDS: LACTOBACILLUS ACIDOPHILUS (FLORANEX) TAB PO SCH (08:22)
[2016-05-08] MEDS: OXCARBAZEPINE 150 MG TAB PO SCH (08:23)
[2016-05-08] MEDS: BENZTROPINE MESYLATE 1 MG TAB PO SCH (08:24)
[2016-05-08] MEDS: TOPIRAMATE 25 MG TAB PO SCH (08:24)
[2016-05-08] MEDS: MAGNESIUM OXIDE 400 MG TAB PO SCH (08:24)
[2016-05-08] MEDS: FLUTICASONE PROPIONATE NA SPR 16 GM BTL NAE SCH (08:24)
[2016-05-08] MEDS: LEVETIRACETAM 500 MG TAB PO SCH (08:24)
[2016-05-08] MEDS: LACTULOSE SYRUP 30 GM/45 ML UDP PO SCH ×2 (08:24→12:47)
[2016-05-08] MEDS: SERTRALINE HCL 50 MG TAB PO SCH (08:27)
[2016-05-08] MEDS ORDERED: KFL500 PO (08:52)
[2016-05-08] MEDS ORDERED: LCTL45 PO ×2 (08:52→09:06)
--- NOTE | 2016-05-08 09:05 | Discharge Instructions ---
Discharge Instructions Admission Reason for Admission: Hyperammonemia, Nausea And Vomiting Discharge Discharge Diagnosis / Problem: Hyperammonemia; nausea and vomiting Discharge Goals Goal(s): Decrease discomfort, Improve function, Increase independence, Therapeutic intervention, Prevent Disease Progression Activity Recommendations Activity Limitations: resume your previous activity . Instructions / Follow-Up Instructions / Follow-Up High ammonia level - It is very important you take your medications as directed. It will cause you to have frequent bowl movements, but this is important is preventing high ammonia levels. 1. Take Lactulose 30 gm by mouth FOUR TIMES PER DAY 2. Continue Rifaximin 550 mg by mouth twice per day Nausea/Vomiting: - Continue to take Compazine 10 mg by mouth every 8 hours as needed for nausea - It is very important you stay well hydrated. Please drink enough fluids to keep your urine light yellow/clear in color. Urinary tract infection: - Take Keflex 500 mg by mouth every 12 hours until prescription is completed. It is important you take entire course of antibiotic as prescribed. Resume all other regular home medications as prescribed to you Please follow-up with your PCP within 5-7 days Please follow-up/keep all of your subspecialty appointments Current Hospital Diet Patient's current hospital diet: Diabetes Type 2 Diet Discharge Diet Recommended Diet: Diabetes Type 2 Diet Procedures Procedures Performed: 1. Abdominal/chest x-ray Pending Studies Studies pending at discharge: no Laboratory Results Last 24 Hours Test 05/07/16 11:15 05/07/16 11:27 05/07/16 20:00 05/08/16 05:03 Urine Opiates Screen NEG Urine Methadone, Qualitative NEG Urine Barbiturates NEG Urine Phencyclidine (PCP) Level NEG Ur Amphetamine/Methamphetamine NEG MDMA (Ecstasy) Screen POS Urine Benzodiazepines Screen NEG Urine Cocaine Metabolite NEG Urine Marijuana (THC) NEG Bedside Glucose 130 mg/dl 149 mg/dl White Blood Count 3.25 K/uL Red Blood Count 2.53 M/uL Hemoglobin 9.4 g/dL Hematocrit 25.4 % Mean Corpuscular Volume 100.4 fL Mean Corpuscular Hemoglobin 37.2 pg Mean Corpuscular Hemoglobin Concent 37.0 g/dl RDW Standard Deviation 48.2 fL RDW Coefficient of Variation 13.3 % Platelet Count 64 K/uL Mean Platelet Volume 9.8 fL Sodium Level 142 mmol/L Potassium Level 3.9 mmol/L Chloride Level 107 mmol/L Carbon Dioxide Level 28 mmol/L Anion Gap 7.0 mmol/L Blood Urea Nitrogen 12 mg/dl Creatinine 0.65 mg/dl Est Creatinine Clear Calc Drug Dose 115.4 ml/min Estimated GFR () 120.0 Estimated GFR (Non- 103.5 BUN/Creatinine Ratio 18.6 Random Glucose 86 mg/dl Calcium Level 7.4 mg/dl Total Bilirubin 1.3 mg/dl Aspartate Amino Transf (AST/SGOT) 30 U/L Alanine Aminotransferase (ALT/SGPT) 30 U/L Alkaline Phosphatase 113 U/L Total Protein 5.0 gm/dl Albumin 2.7 gm/dl Globulin 2.3 gm/dl Albumin/Globulin Ratio 1.2 Test 05/08/16 08:10 Ammonia 73.0 umol/L Hemoglobin A1c Test 04/04/16 07:25 Range/Units Estimated Average Glucose 74 mg/dl Hemoglobin A1c 4.2 L 4.5-5.6 % Medical Emergencies . Who to Call and When: Medical Emergencies: If at any time you feel your situation is an emergency, please call 911 immediately. . Non-Emergent Contact Non-Emergency issues call your: Primary Care Provider Call Non-Emergent contact if: you have a fever, your pain is not controlled, your pain is worsening, your pain is unusual for you, your pain is concerning you, you have any medication questions . . "Provider Documentation" section prepared by Jade Aaron. VTE Core Measure Inpt VTE Proph given/why not?: Lopez Downey, SCD's
--- NOTE | 2016-05-08 09:11 | Discharge Summary ---
Discharge Summary Admission Date: May 06, 2016 at 12:28 Discharge Date: May 08, 2016 Discharge Disposition: Home with services Principal Diagnosis: Hyperammonemia Problems/Secondary Diagnoses: 1. T2DM 2. UTI 3. HTN: 4. Seizure Disorder 5. Migraine 6. Bipolar disorder 7. Pancytopenia Immunizations: Have You Had Influenza Vaccine: Yes Influenza Vaccine Date: Feb 02, 2013 History of Tetanus Vaccine?: utd Tetanus Immunization Date: Jun 11, 2008 History of Pneumococcal: SEE LAST PACKET Pneumococcal Date: Nov 13, 2008 History of Hepatitis B Vaccine: Unknown Hepatitis Immunization Date: Jan 12, 1996 Procedures: ABDOMEN 2VIEW W/PA CHEST RTN CLINICAL HISTORY: ABDOMINAL PAIN/GI pain. Nausea. COMPARISON STUDY: 04/27/2016 FINDINGS: The soft tissues, psoas shadows, renal outlines and intestinal gas pattern appear normal. There is no evidence for bowel obstruction. There is no evidence for free intraperitoneal air. No abnormal abdominal calcifications are seen. A frontal view of the chest was performed and is unremarkable. PermCath in superior vena cava. Lungs are clear. IMPRESSION: No acute process. Nonobstructive bowel pattern. Electronically signed by: Kenroy Yates M.D. 05/06/2016 10:35 AM Dictated Date/Time: 05/06/2016 10:34 AM The status of this report is Signed. Draft = Not yet reviewed or approved by Radiologist. Signed = Reviewed and approved by Radiologist. (Jade Aaron, AMARILISC) Medication Reconciliation New Medications: Cephalexin Monohydrate (Cephalexin) 500 Mg Cap 1 TAB PO BID for 7 Days, #14 TABS Changed Medications: Lactulose (Lactulose) 30 Gm/45 Ml Syrp 30 GM PO QID for 30 Days (Changed from: TID) Continued Medications: Ascorbic Acid (Vitamin C) 1,000 Mg Tab 1 TAB PO DAILY Benztropine Mesylate (Benztropine Mesylate) 2 Mg Tab 1 MG PO BID Cranberry-Vitamin C-Vitamin E (Cranberry) 1 Cap Cap 1 CAP PO TID Epinephrine (Epipen) 0.3 Mg/0.3 Ml Inj 0.3 MG IM UD PRN for ALLERGIC REACTION Ferrous Sulfate (Ferrous Sulfate) 325 Mg Tab 325 MG PO DAILY Fluticasone Propionate (Fluticasone Propionate) 120 Sprays/6000 Mcg Inha 1-2 SPRAYS ABRAHAN BID Glucose-Vitamin C (Glucose) 1 Chw Chw 1 CHW PO UD PRN for Hypoglycemia Insulin Glargine (Toujeo Solostar) 300 Unit/Ml Inj 40 UNITS SQ DAILY Lecithin (Lecithin) 1,200 Mg Cap 1 CAP PO DAILY Levetiracetam (Levetiracetam) 1,000 Mg Tab 1500 MG PO BID TAKE ONE 1000 MG TABLET ALONG WITH ONE 500 MG TABLET TO EQUAL 1500 MG DOSE TWICE A DAILY. Levothyroxine Sodium (Levothyroxine Sodium) 75 Mcg Tab 75 MCG PO DAILY, TAB Magnesium Oxide (Mag-Ox) 400 Mg Tab 400 MG PO TID, TAB Meloxicam (Mobic) 7.5 Mg Tab 1 TAB PO DAILY for 30 Days, #30 TAB 2 Refills Multiple Vitamin (Multivitamin) 1 Tab Tab 1 TABLET PO DAILY Omeprazole (Prilosec) 20 Mg Cap 20 MG PO DAILY, CAP Oxcarbazepine (Trileptal) 600 Mg Tab 600 MG PO BID, TAB Probiotic Product (Probiotic) 1 Cap Cap 1 CAP PO DAILY Prochlorperazine Maleate (Compazine) 10 Mg Tab 10 MG PO Q8 PRN for Nausea or Vomiting, TAB Ranitidine HCl (Ranitidine HCl) 150 Mg Tab 150 MG PO BID Rifaximin (Xifaxan) 550 Mg Tab 550 MG PO BID, TAB Rizatriptan Benzoate (Rizatriptan Benzoate) 10 Mg Tab 10 MG PO UD PRN for Headache TAKE ONE TABLET AT ONSET OF HEADACHE, MAY REPEAT AFTER 2 HOURS IF NEEDED. MAXIMUM OF 3 TABLETS IN 24 HOURS. Sertraline (Zoloft) 50 Mg Tab 125 MG PO DAILY Topiramate (Topiramate) 25 Mg Tab 25 MG PO BID Trazodone HCl (Trazodone HCl) 100 Mg Tab 300 MG PO HS for 30 Days, #30 TAB Triamterene/Hctz (Triamterene/Hctz 37.5-25MG) 1 Tab Tab 1 TAB PO DAILY, TAB Vitamin A ([id number]) 10,000 Unit Cap 40286 INTER.UNIT PO DAILY Zinc Gluconate (Zinc) 50 Mg Tab 50 MG PO BID Discontinued Medications: Sulfacetamide Sodium (Ophth) (Bleph-10) 10 % Peg 2 DROPS OPB TID, #5 ML BEGIN 02/10/16 X 7 DAYS Referrals At Discharge Follow up Referrals: Family Practice Referral - Within 1 Week with Mingo Lin M.D. Discharge Exam Review of Systems: Constitutional: No chills, No fatigue, No fever, No sweats, No weakness Respiratory: No cough, No hemoptysis, No shortness of breath Cardiovascular: No chest pain, No edema, No palpitations Abdomen: No constipation, No diarrhea, No nausea, No pain, No vomiting Musculoskeletal: No calf pain, No joint pain, No muscle pain, No swelling Genitourinary - Female: No dysuria, No hematuria Neurologic: No numbness/tingling, No weakness Psychiatric: No anxiety, No depression symptoms Hematologic / Lymphatic: No abnormal bleeding/bruising Integumentary: No itch, No new/changing skin lesions, No rash Physical Exam: General Appearance: no apparent distress, + obese Eyes: normal inspection, PERRL ENT: hearing grossly normal Neck: supple Respiratory/Chest: lungs clear, no respiratory distress, no accessory muscle use Cardiovascular: regular rate, rhythm, normal peripheral pulses Abdomen / GI: normal bowel sounds, non tender, soft Extremities: no calf tenderness, no pedal edema Neurologic/Psychiatric: alert, normal mood/affect, oriented x 3 Skin: normal color, warm/dry, no rash (Jade Aaron, PA-C) Hospital Course 50 y/o female, with PMHx liver cirrhosis, T2DM, HTN,, seizure disorder, migraine , bipolar disorder, and anemia, who presented to the ED because of nausea and vomiting x1 day. Liver Cirrhosis - Hyperammonemia @165 with nausea and vomiting: - Admit med/surg - NPO except meds, advance diet as tolerated by patient - IV Zofran PRN + IV Compazine PRN - Abd XR/CXR - No acute process. Nonobstructive bowel pattern. - Hydrate with 1/2 NSS at 100 mL/hr - Lactulose 30 g increased from BID to Q4HWA - Rifaximin 550 mg BID - Trended ammonia levels - Follow CBC and BMP Lactulose 30 g QID, Rifaximin 550 mg BID, and antinausea medication continued at discharge UTI: - U/A dirty, urine culture growing gram negative bacilli- treat with Keflex 500 mg BID x7 days - Reviewed urine toxicology Constipation: - Increased Lactulose + fleet enema- 3 bowel movements reported during hospital stay Lactulose 30 g TID at discharge T2DM: - Patient reports Toujeo 38 units at home - Lantus 20 units SC daily as reduce dose for NPO status. Monitor need for adjustments. - SSI - goal 130-180 with correction factor 35 - Accu-Checks Continue home regimen at discharge HTN: - Continue Triamterene/HCTZ 1 tab PO daily Continue at discharge Seizure Disorder: - Continue Keppra 1500 mg BID - Continue Trileptal 600 mg PO BID Continue at discharge Migraine: - Continue Topamax 25 mg PO BID Continue at discharge Bipolar disorder: - Continue Trazodone 300 mg HS Continue at discharge Pancytopenia, chronic- stable: - Ferrous Sulfate 325 mg PO daily - Continue to trend CBC Continue Iron supplement at discharge DVT prophylaxis: - MIRYAM/SCDs - Will withhold chemical prophylaxis in setting of thrombocytopenia Code Status: - FULL RESUSCITATION Dispo: - Discharge to home with health services Total Time Spent: Greater than 30 minutes This includes examination of the patient, discharge planning, medication reconciliation, and communication with other providers. (Jade Aaron, PA-C) i personally examined pt and verified all tai points w Betzy Aaron PAC feeling better, ready to go home, no further vomiting, eating OK, d/w nad breathing unlabored nausea//vomiting - improved contipation - improved. encouraged lactulose and that she may need miralax as well stable for home (Eagle Crocker D.O.) Discharge Instructions Please refer to the electronic Patient Visit Report (Discharge Instructions) for additional information. (Jade Aaron, PA-C) Follow-Up Please follow-up with your PCP within 5-7 days Please follow-up/keep all of your subspecialty appointments (Jade Aaron PA-C) Additional Copies To Mingo Lin M.D.
[2016-05-08] MEDS: INSULIN ASPART 100 UNITS/ML 3 ML PEN SC SCH ×2 (09:14→12:56)
[2016-05-08] MEDS: INSULIN GLARGINE SOLOSTAR 100 UNITS/ML 3 ML PEN SC SCH (09:15)
[2016-05-08 11:30] VITALS: BP 102/62; PULSE 84; TEMP 36.5; O2SAT 98
[2016-05-08] MEDS: SODIUM CHLORIDE 0.45% 1000ML 1,000 ML IV SCH (11:40)
[2016-05-22] MEDS ORDERED: PRLSR20 PO (10:16)
[2016-05-22] MEDS ORDERED: TRAZ1TAB52 PO (10:16)
[2016-05-22] MEDS ORDERED: SERT25TA PO (10:16)
[2016-05-22] MEDS ORDERED: TRIA37.5 PO (10:16)
[2016-05-22] MEDS ORDERED: LACT10SO30 PO (10:16)
[2016-05-22] MEDS ORDERED: SERT100T PO (10:16)
[2016-05-22] MEDS ORDERED: IPRASOL4 INH (10:23)
[2016-05-22] MEDS ORDERED: VNTHFA/IN INH (10:23)
[2016-05-22] MEDS ORDERED: SPRIN/30 INH (10:23)
[2016-06-18] MEDS ORDERED: PRED1SUS OPR (07:39)
[2016-06-18] MEDS ORDERED: SYMIN160 INH (07:39)
[2016-06-18] MEDS ORDERED: BROM0.07 OPR (07:39)
[2016-06-18] MEDS ORDERED: INSU100I2 SC (07:42)
[2016-08-13] MEDS ORDERED: LACT10SO17 PO (13:37)
[2016-08-13] MEDS ORDERED: CARB25TA12 PO (13:37)
[2016-08-13] MEDS ORDERED: DESV50TA2 PO (13:37)
[2016-08-28] MEDS ORDERED: TOPI25CA2 PO (10:30)
[2016-09-19] MEDS ORDERED: LUTE20TA PO (12:03)
[2016-09-19] MEDS ORDERED: CAFF3TAB PO (12:03)
[2016-09-19] MEDS ORDERED: MIRT15TA3 PO (12:03)
[2016-09-19] MEDS ORDERED: CHOL20009 PO (12:03)
[2016-09-19] MEDS ORDERED: VITA1TAB4 PO (12:03)
[2016-09-19] MEDS ORDERED: PUMP1CAP PO (12:03)
[2016-09-19] MEDS ORDERED: CRAN1TAB PO (12:04)
[2016-09-19] MEDS ORDERED: TOPI25TA99 PO (12:07)
[2016-09-19] MEDS ORDERED: TOPI25TA10 PO (12:08)
[2016-09-28] MEDS ORDERED: Levetiracetam PO (09:59)
[2016-10-14] MEDS ORDERED: CARB25TA16 PO (10:30)
[2016-10-24] MEDS ORDERED: LACT10SO17 PO (12:57)
[2016-10-24] MEDS ORDERED: KETO10TA PO (12:57)
[2016-10-24] MEDS ORDERED: LACO50TA PO (12:57)
[2016-10-24] MEDS ORDERED: INSU1.2I SQ (12:57)
[2016-12-25] MEDS ORDERED: KFL500 PO (16:53)
[2016-12-25] MEDS ORDERED: BUME1TAB PO (16:53)
[2016-12-26] MEDS ORDERED: CIPR-255 PO (10:04)
[2017-01-01] MEDS ORDERED: OXYC1TAB3 PO (07:45)
[2017-01-01] MEDS ORDERED: [UNRECOGNIZED DRUG - CODE] PO (07:45)
== END 2016-05-08 14:38 | disposition home health service (06) | DRG 642 ==
LOC: ENRESERVTM → ENRESERVDT → C.EDB 08:58 → C.MS4W 12:28
PROVIDERS: ADMIT Family Medicine; ATTEND Family Medicine
DX: E72.20 Disorder of urea cycle metabolism, unspecified (principal); E87.0 Hyperosmolality and hypernatremia; N39.0 Urinary tract infection, site not specified; D61.818 Other pancytopenia; F32.3 Major depressive disorder, single episode, severe with psychotic features; K76.6 Portal hypertension; F31.9 Bipolar disorder, unspecified; G40.909 Epilepsy, unspecified, not intractable, without status epilepticus; G43.909 Migraine, unspecified, not intractable, without status migrainosus; D46.9 Myelodysplastic syndrome, unspecified; D69.6 Thrombocytopenia, unspecified; K74.60 Unspecified cirrhosis of liver; J45.909 Unspecified asthma, uncomplicated; K29.70 Gastritis, unspecified, without bleeding; K59.00 Constipation, unspecified; R11.2 Nausea with vomiting, unspecified; B96.89 Other specified bacterial agents as the cause of diseases classified elsewhere; I10 Essential (primary) hypertension; E11.43 Type 2 diabetes mellitus with diabetic autonomic (poly)neuropathy; K31.84 Gastroparesis; R01.1 Cardiac murmur, unspecified; K72.90 Hepatic failure, unspecified without coma; Z91.5 Personal history of self-harm; K27.9 Peptic ulcer, site unspecified, unspecified as acute or chronic, without hemorrhage or perforation; F45.8 Other somatoform disorders; E86.0 Dehydration; Z79.1 Long term (current) use of non-steroidal anti-inflammatories (NSAID); Z79.899 Other long term (current) drug therapy; Z79.02 Long term (current) use of antithrombotics/antiplatelets

== ENCOUNTER 2016-05-14 00:35 | Emergency (ER) | payer BC, OTHER ==
[~2016-05-14] VITALS: Ht 165.1 cm; Wt 93.1 kg
[~2016-05-14 00:35] MED LIST changes: +BENZ2TAB6 PO; -COEN150C PO; +CRAN1CAP15 PO; +EPP3/2 IM; +FERR325T5 PO; +FLNIN/ NAE; +GLUC-338 PO; +KFL500 PO; +LEVE100021 PO; +LEVO75TA5 PO; +MAGN400T6 PO; +MELO7.5T6 PO; +MISCCAP80 PO; +OMEP20CA9 PO; -POTA99TA PO; +PROC1TAB5 PO; +RANI150T2 PO; +RIFA550T2 PO; +RIZA1TAB11 PO; -SULF10SO2 OPB; +TPM25 PO; +TRIATAB3 PO; +VITA1CAP11 PO; +ZINC1TAB PO
[2016-05-14 00:42] VITALS: TEMP 36.6; Ht 165.1 cm; Wt 93.1 kg
--- NOTE | 2016-05-14 00:50 | EMERGENCY ROOM VISIT NOTE ---
History Report prepared by Broderick: Patricia Spears Under the Supervision of: Dr. Pino Gonzales M.D. 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 The patient rates her pain as a 9/10 in severity. The patient states that she had a pain medication shot for her recurring back pain and states that the pain has returned. The patient states that walking worsens the pain. The patient states that she has been falling lately with the most recent fall occurring today. The patient denies any LOC. She states that along with her back pain she has right hand pain. Source of History: patient Onset: earlier today FORENSIC SPECIALIST Position: back Symptom Intensity: 9/10 Modifying Factors (Worsening): other (walking) Associated Symptoms: No LOC Note: Associated symptoms: right hand pain and falls. Review of Systems See HPI for pertinent positives & negatives. A total of 10 systems reviewed and were otherwise negative. 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 (17) Seizure disorder Surgical Problems: (1) H/O nasal septoplasty (2) History of appendectomy (3) History of cholecystectomy (4) History of hysterectomy (5) History of kyphoplasty (6) History of tonsillectomy (7) s/p spinal stimulator placement Family History Depression Hypertension Social History Smoking Status: Never Smoker Alcohol Use: none Drug Use: none Marital Status: Housing Status: lives with significant other Occupation Status: disabled Current/Historical Medications Scheduled Ascorbic Acid (Vitamin C), 1 TAB PO DAILY Cranberry-Vitamin C-Vitamin E (Cranberry), 1 CAP PO TID Ferrous Sulfate (Ferrous Sulfate), 325 MG PO DAILY Fluticasone Propionate (Fluticasone Propionate), 1-2 SPRAYS ABRAHAN BID Insulin Glargine (Toujeo Solostar), 40 UNITS SQ DAILY Lactulose (Lactulose), 30 GM PO QID Lecithin (Lecithin), 1 CAP PO DAILY Levetiracetam (Levetiracetam), 1,500 MG PO BID Levothyroxine Sodium (Levothyroxine Sodium), 75 MCG PO DAILY Magnesium Oxide (Mag-Ox), 400 MG PO TID Meloxicam (Mobic), 1 TAB PO DAILY Multiple Vitamin (Multivitamin), 1 TABLET PO DAILY Omeprazole (Prilosec), 20 MG PO DAILY Oxcarbazepine (Trileptal), 600 MG PO BID Probiotic Product (Probiotic), 1 CAP PO DAILY Ranitidine HCl (Ranitidine HCl), 150 MG PO BID Rifaximin (Xifaxan), 550 MG PO BID Sertraline (Zoloft), 125 MG PO DAILY Topiramate (Topiramate), 25 MG PO BID Trazodone HCl (Trazodone HCl), 300 MG PO HS Triamterene/Hctz (Triamterene/Hctz 37.5-25MG), 1 TAB PO DAILY Vitamin A ([id number]), 10,000 INTER.UNIT PO DAILY Zinc Gluconate (Zinc), 50 MG PO BID Scheduled PRN Epinephrine (Epipen), 0.3 MG IM UD PRN for ALLERGIC REACTION Glucose-Vitamin C (Glucose), 1 CHW PO UD PRN for Hypoglycemia Prochlorperazine Maleate (Compazine), 10 MG PO Q8 PRN for Nausea or Vomiting Rizatriptan Benzoate (Rizatriptan Benzoate), 10 MG PO UD PRN for Headache Allergies Coded Allergies: Amoxicillin (Verified Allergy, Intermediate, HIVES, 05/14/16) Azithromycin (Verified Allergy, Intermediate, HIVES, 05/14/16) Baclofen (Verified Allergy, Intermediate, RASH, 05/14/16) Butalbital (Verified Allergy, Intermediate, HIVES, 05/14/16) Clarithromycin (Verified Allergy, Intermediate, RASH, 05/14/16) Dicyclomine (Verified Allergy, Intermediate, HIVES, 05/14/16) HIVES Penicillins (Verified Allergy, Intermediate, RASH, 05/14/16) PT STATES SHE GETS WELTS FROM CIPRO,LEVAQUIN ALLERGY PER DR ROBLES Tetracyclines (Verified Allergy, Intermediate, DOXYCYCLINE-HIVES, 05/14/16) Sulindac (Verified Allergy, Mild, ALLERGY LISTED "CLONDORAL"--HIVES, ) Adhesives (Verified Allergy, Unknown, RASH, DUODERM=RED,ITCHY, 05/14/16) PLASTIC TAPE IS OK!!! DUODERM=RED,ITCHY Clindamycin (Verified Allergy, Unknown, HIVES, 05/14/16) Metronidazole (Verified Allergy, Unknown, SEIZURE, 05/14/16) Metoclopramide (Verified Adverse Reaction, Severe, SEIZURES, 05/14/16) Furosemide (Verified Adverse Reaction, Unknown, HIVES, 05/14/16) Physical Exam Vital Signs Date Time Temp Pulse Resp B/P Pulse Ox O2 Delivery O2 Flow Rate FiO2 05/14/16 02:30 76 20 119/70 98 05/14/16 00:42 36.6 66 20 125/80 100 Room Air Physical Exam GENERAL: Patient is in no distress, chronically ill appearing, and talking. HEENT: No acute trauma, normocephalic atraumatic, mucous membranes moist, no nasal congestion, no scleral icterus. NECK: No stridor, no adenopathy, no meningismus, trachea is midline. LUNGS: No dyspnea. Clear to auscultation and equal bilaterally. No wheeze, no rhonchi. HEART: Regular rate and rhythm. No murmurs, rubs, gallops appreciated. ABDOMEN: Soft, nontender, bowel sounds positive, no masses appreciated, no peritonitis. BACK: No midline tenderness, no CVA tenderness EXTREMITIES: Normal motion all extremities, no cyanosis, no edema. Moves all extremities without difficulty except when asked to and then will not move extremities. NEUROLOGIC: Alert and oriented, no acute motor or sensory deficits, no focal weakness, cranial nerves grossly intact. SKIN: No rash, no jaundice, no diaphoresis. Medical Decision & Procedures ER Provider Diagnostic Interpretation: X ray results are stated below per my interpretation and the radiologist's interpretation. 4 View Lumbar Spine: No acute fracture or dislocation. Small amount of colic gas present. Old lumbar compression fracture without change. ED Course 0045: The patient was evaluated in room B5. A complete history and physical exam was performed. 0135: I discussed the patient with the radiology and the patient was able to move self from the X-ray table back into her bed without assistance. 0140:I reevaluated the patient. Discussed results and discharge instructions: She verbalized understanding and agreement. The patient is ready for discharge. Medical Decision Differential: Musculoskeletal, Disc Herniation, Fracture, Cord Compression, Discitis, Infectious, Aortic Pathology, Renal Colic, UTI/Pyelonephritis, Acute Exacerbation of Chronic Pain, Sciatica, Cauda Equina, amongst other pathologies entertained. 50 yr old female well known to me and staff for frequent visits. I feel comfortable knowing her well and she clearly is not encephalopathic as clear voice, looking around room, able to move in bed at will (though refuses if requested), walked to stretcher, moved from Xray table to stretcher without any help. She is asking for her Ammonia level to be checked but there is no indication for this. She is stable breathing comfortably. Vague report of falling hurting back though can find no injury not reproducible TTP. She has no abdominal TTP. She has had this pain many times before. No leg weakness other than when she refuses to move legs (she was clearly noted to be moving them without difficulty). She has no change in her Lumbar films compared to previous. She will follow up with her PCP. She has no loss bowel/bladder. Impression Primary Impression: Chronic low back pain Scribe Attestation The scribe's documentation has been prepared under my direction and personally reviewed by me in its entirety. I confirm that the note above accurately reflects all work, treatment, procedures, and medical decision making performed by me. Departure Information Dispostion Home / Self-Care Referrals Mingo Lin M.D. (PCP) Forms HOME CARE DOCUMENTATION FORM, IMPORTANT VISIT INFORMATION Patient Instructions Back Pain - [facility], [facility] Additional Instructions Please follow up with your primary care provider and pain management physician for further evaluation. Problem Qualifiers Primary Impression: Chronic low back pain Back pain laterality: midline Sciatica presence: without sciatica Qualified Codes: M54.5 - Low back pain; G89.29 - Other chronic pain
[2016-05-14 02:30] VITALS: BP 119/70; PULSE 76; O2SAT 98
--- NOTE | 2016-05-14 07:03 | DIAGNOSTIC IMAGING REPORT ---
LUMBAR SPINE 2 OR 3 VIEWS CLINICAL HISTORY: chronic low back pain worse after fall trauma. Pain. COMPARISON STUDY: None FINDINGS: Findings consistent with degenerative change and degenerative fusion of T12-L1 and L2. Old moderate compression deformity of L1. Degenerative vertebral this change L4-L5 and L5-S1. Mild that should scoliosis. IMPRESSION: Findings consistent with old trauma and superimposed degenerative change. No acute process. Electronically signed by: Kenroy Yates M.D. 05/14/2016 7:02 AM Dictated Date/Time: 05/14/2016 7:01 AM
[2016-05-22] MEDS ORDERED: TRAZ1TAB52 PO (10:16)
[2016-05-22] MEDS ORDERED: PRLSR20 PO (10:16)
[2016-05-22] MEDS ORDERED: TRIA37.5 PO (10:16)
[2016-05-22] MEDS ORDERED: SERT100T PO (10:16)
[2016-05-22] MEDS ORDERED: LACT10SO30 PO (10:16)
[2016-05-22] MEDS ORDERED: SERT25TA PO (10:16)
[2016-05-22] MEDS ORDERED: IPRASOL4 INH (10:23)
[2016-05-22] MEDS ORDERED: SPRIN/30 INH (10:23)
[2016-05-22] MEDS ORDERED: VNTHFA/IN INH (10:23)
[2016-06-18] MEDS ORDERED: PRED1SUS OPR (07:39)
[2016-06-18] MEDS ORDERED: BROM0.07 OPR (07:39)
[2016-06-18] MEDS ORDERED: SYMIN160 INH (07:39)
[2016-06-18] MEDS ORDERED: INSU100I2 SC (07:42)
[2016-08-13] MEDS ORDERED: LACT10SO17 PO (13:37)
[2016-08-13] MEDS ORDERED: CARB25TA12 PO (13:37)
[2016-08-13] MEDS ORDERED: DESV50TA2 PO (13:37)
[2016-08-28] MEDS ORDERED: TOPI25CA2 PO (10:30)
[2016-09-19] MEDS ORDERED: PUMP1CAP PO (12:03)
[2016-09-19] MEDS ORDERED: LUTE20TA PO (12:03)
[2016-09-19] MEDS ORDERED: VITA1TAB4 PO (12:03)
[2016-09-19] MEDS ORDERED: CAFF3TAB PO (12:03)
[2016-09-19] MEDS ORDERED: CHOL20009 PO (12:03)
[2016-09-19] MEDS ORDERED: MIRT15TA3 PO (12:03)
[2016-09-19] MEDS ORDERED: CRAN1TAB PO (12:04)
[2016-09-19] MEDS ORDERED: TOPI25TA99 PO (12:07)
[2016-09-19] MEDS ORDERED: TOPI25TA10 PO (12:08)
[2016-09-28] MEDS ORDERED: Levetiracetam PO (09:59)
[2016-10-14] MEDS ORDERED: CARB25TA16 PO (10:30)
[2016-10-24] MEDS ORDERED: LACO50TA PO (12:57)
[2016-10-24] MEDS ORDERED: LACT10SO17 PO (12:57)
[2016-10-24] MEDS ORDERED: INSU1.2I SQ (12:57)
[2016-10-24] MEDS ORDERED: KETO10TA PO (12:57)
[2016-12-25] MEDS ORDERED: BUME1TAB PO (16:53)
[2016-12-25] MEDS ORDERED: KFL500 PO (16:53)
[2016-12-26] MEDS ORDERED: CIPR-255 PO (10:04)
[2017-01-01] MEDS ORDERED: [UNRECOGNIZED DRUG - CODE] PO (07:45)
[2017-01-01] MEDS ORDERED: OXYC1TAB3 PO (07:45)
== END 2016-05-14 02:44 | disposition home or self-care (01) ==
LOC: C.EDB 00:36
DX: M54.5 Low back pain (principal); G89.29 Other chronic pain; F31.9 Bipolar disorder, unspecified; K21.9 Gastro-esophageal reflux disease without esophagitis; E03.9 Hypothyroidism, unspecified; I10 Essential (primary) hypertension; E11.9 Type 2 diabetes mellitus without complications; D46.9 Myelodysplastic syndrome, unspecified; Z90.49 Acquired absence of other specified parts of digestive tract; Z79.4 Long term (current) use of insulin

== ENCOUNTER → 2016-06-06 | Day surgery (SDC) | payer BC, OTHER ==
[2016-05-22 10:17] VITALS: Ht 165.1 cm; Wt 86.4 kg
[~2016-06-06] VITALS: Ht 165.1 cm; Wt 86.4 kg
[~2016-06-06] MED LIST changes: +500ML BSS 0.3ML EPI 1:1000PF IRRIG ONE; +ACET-1047 PO; +ACETAMINOPHEN 325 MG TAB PO PRN; +AMVISC PLUS 0.8ML SYRINGE INT OCU ONE; +ATROPINE SULFATE 0.1 MG/ML 5ML SYR IV PRN; -BENZ2TAB6 PO; +BROM0.07 OPR; +BSS FLUSH ONE; +BUME1TAB PO; +CAFF3TAB PO; +CARB25TA12 PO; +CARB25TA14 PO; +CARB25TA16 PO; +CHOL20009 PO; +CIPR-255 PO; +CRAN1TAB PO; +CRAN1TAB6 PO; +DESV50TA2 PO; -DSY100 PO; +EpHEDrine SULFATE INJ 50 MG/ML AMP IV PRN; +EpINEphrine INJ 1MG/ML AMP 1 MG/ML AMP ONE; +FENTANYL CITRATE INJ 50 MCG/1 ML 2 ML VIAL ONE; +INSU100I2 SC; +IPRASOL4 INH; +KETO10TA PO; +LACO50TA PO; +LACT10SO17 PO; +LACT10SO30 PO; +LACTATED RINGER'S 1000ML 500 ML IV SCH; +LCTL30 PO; -LCTL45 PO; +LDDP5 TD; +LIDOCAINE 3.5% OPH GEL PER APPLICATION CHARGE ONE; +LIDOCAINE HCL 1% MPF 2 ML VIAL ONE; +LUTE15CA PO; +LUTE20TA PO; +Levetiracetam PO; +MIDAZOLAM HCL 1 MG/ML 2ML VIAL ONE; +MIRT15TA3 PO; +MIRT30TA2 PO; +MTR/400 PO; +MULT-506 PO; +NAPR-998 PO; +OCUCOAT 1 ML SOLN IO ONE; -OMEP20CA9 PO; +ONDA4TAB10 SL; +OXCA300T PO; +OXYC1TAB3 PO; +POVIDONE-IODINE OP SOLN 30 ML BTL ONE; +PRED1SUS OPR; +PRLSR20 PO; +PROM12.57 PO; +PROPARACAINE 0.5% OP SOLN PER DROP CHARGE OPR SCH; +PUMP1CAP PO; +RMR15 PO; +SERT100T PO; +SERT25TA PO; -SERT50TA PO; +SPIR25TA PO; +SPRIN/30 INH; +SUMA100T16 PO; +SYMIN160 INH; +TOBRAMYCIN/DEXAMETHASONE OPH OINT PER APPLN CHARGE ONE; +TOPI25CA2 PO; +TOPI25TA10 PO; +TOPI25TA99 PO; +TOPI50TA16 PO; +TRAZ1TAB52 PO; +TRIA1SPR4 NAE; +TRIA37.5 PO; -TRIATAB3 PO; +VITA1TAB4 PO; +VITA80004 PO; +VNTHFA/IN INH; +[UNRECOGNIZED DRUG - CODE] PO; +[UNRECOGNIZED DRUG - CODE] PO
--- NOTE | 2016-06-06 07:02 | History & Physical Bridge - SC ---
H&P Re-Evaluation Bridge Note: I have examined the patient, reviewed the History & Physical and in the interval since the performance of the History & Physical I have noted the following changes of clinical significance: Diagnosis: Right Cataract Procedure: Right Cataract Removal with Lens Implant No changes noted
[2016-06-06] MEDS: PHENYLEPHRINE HCL 2.5% OP SOLN PER DROP CHARGE OPR SCH ×2 (07:08→07:13)
[2016-06-06] MEDS: TROPICAMIDE 1% OP SOLN PER DROP CHARGE OPR SCH ×2 (07:09→07:14)
[2016-06-06] MEDS: CYCLOPENTOLATE HCL 1% OP SOLN PER DROP CHARGE OPR SCH ×2 (07:10→07:15)
[2016-06-06] MEDS: KETOROLAC 0.5% OP SOLN PER DROP CHARGE OPR SCH ×2 (07:11→07:16)
[2016-06-06] MEDS: GATIFLOXACIN OP SOLN PER DROP CHARGE OPR SCH ×2 (07:12→07:22)
--- NOTE | 2016-06-06 07:59 | Discharge Instructions-SurgCtr ---
Discharge Instructions Date of Service Jun 06, 2016. Visit Reason for Visit: Cataract Right Eye Discharge Discharge Diagnosis / Problem: cataract Discharge Goals Goal(s): Improve function Medications Stopped Medications Name(s): Pt. did not take her insulin this a.m.. Activity Recommendations Activity Limitations: per Instructions/Follow-up section Anesthesia . Post Anesthesia Instructions: If you have had General Anesthesia or IV Sedation: * Do not drive today. * Resume driving when surgeon permits. * Do not make important decisions or sign legal documents today. * Call surgeon for: 1. Temperature elevations greater than 101 degrees F. 2. Uncontrollable pain. 3. Excessive bleeding. 4. Persistent nausea and vomiting. 5. Medication intolerance (nausea, vomiting or rash). * For nausea and vomiting use only clear liquids such as: tea, soda, bouillon until nausea subsides, then gradually increase diet as tolerated. * If you have any concerns or questions, call your surgeon's office. If physician is unavailable and it is an emergency, call 911 or go to the nearest emergency room. . Instructions / Follow-Up Instructions / Follow-Up ACTIVITY RECOMMENDATIONS: * No strenuous lifting, jogging or running for 4 days * No swimming or yard work for 1 week. * Limited bending is permitted, such as putting on shoes. RETURN TO SCHOOL/WORK: No work until seen by physician in office. MEDICATIONS: Resume previous medications unless instructed otherwise by your surgeon. This includes eye drops for glaucoma. Zymaxid/Gatifloxacin (thomson cap) - one drop every 2 hours until bedtime Nevanac/Ilevro/Prolensa/Ketorolac (jorgensen cap) - one drop every 4 hours until bedtime Prednisolone (white/pink cap, SHAKE WELL) - one drop every 2 hours until bedtime Starting tomorrow - all 3 drops every 4 hours until seen in the office Optive drops - as needed for discomfort SPECIAL CARE INSTRUCTIONS: * Wear eyeshield when sleeping, for four nights. * You may wear your own glasses or sunglasses while awake. * You may read or watch TV * You may shower and wash your face, but be gentle around the eye and pat dry. * Blurry vision and mild irritation are normal. * Call office if pain is more severe or vision becomes dark at . FOLLOW UP VISIT: Follow-up with Dr Yang tomorrow. Diet Recommendations Home Diet: resume previous diet Procedures Procedures Performed: Right Cataract Phacoemulsification With Intraocular Lens Implant Pending Studies Studies pending at discharge: no Medical Emergencies . Who to Call and When: Medical Emergencies: If at any time you feel your situation is an emergency, please call 911 immediately. . Non-Emergent Contact Non-Emergency issues call your: Soyfreeze Operator . . "Provider Documentation" section prepared by Kojo Yang.
--- NOTE | 2016-06-06 08:00 | [facility] Operative Report ---
Operative Report Date of Service Jun 06, 2016. Operative Report 1. PREOPERATIVE DIAGNOSIS: Cataract of the right eye. 2. POSTOPERATIVE DIAGNOSIS: Same. 3. PROCEDURE: Phacoemulsification with intraocular lens implantation of the right eye. SURGEON: Dr. Kojo Yang. ANESTHESIA: Topical Lidocaine gel, 1% Non- Preserved intracameral Lidocaine, and monitored intravenous sedation. INDICATIONS FOR THE PROCEDURE: The patient is a 50 - year-old female with a history of cataract of the right eye causing significant visual impairment. The details of the proposed procedure were explained to the patient who asked appropriate questions and following discussion of all risks, benefits and alternatives agreed to have the procedure done. 4. OPERATION AND FINDINGS: DESCRIPTION OF PROCEDURE: After informed consent was obtained, the patient was brought to the Operating Room at the [facility]. The patient was placed in a supine position and then the right eye was prepped and draped in the usual sterile fashion for intraocular surgery. A drop of topical Lidocaine gel was placed in the operative eye. A wire lid speculum was then placed in the fornices. A corneal paracentesis was then created temporally. The Non-Preserved Lidocaine was then instilled into the anterior chamber. The anterior chamber was then pressurized with viscoelastic. A 2.0 mm clear corneal incision was then created temporally. A cystotome was inserted into the anterior chamber and used to create a tear in the anterior lens capsule. This capsular tear was then used to create a small flap and the flap was dragged in a counterclockwise direction in order to create a continuous curvilinear capsulorrhexis. Hydrodissection was accomplished with balanced salt solution. Phacoemulsification of the lens nucleus was then performed in a standard [id number] technique. The phaco time was 14 seconds with an average power of 12 %. The remaining cortical material was removed using irrigation aspiration. The capsular bag was then filled with viscoelastic. A Bausch & Lomb MI60L +19.0 diopters lens was then loaded into the injector and injected into the capsular bag. The remaining viscoelastic was removed with the irrigation aspiration handpiece. The wound was hydrated and then checked and found to be watertight. The intraocular pressure was checked and found to be adequate. The wire lid speculum was removed and the patient's face was cleaned and dried. TobraDex ointment was placed in the inferior fornix. The patient was discharged to the Recovery Room having tolerated the procedure well. There were no complications. The patient will be seen tomorrow in the office for follow-up. I attest to the content of the Intraoperative Record and any orders documented therein. Any exceptions are noted below.
[2016-06-06 08:02] VITALS: TEMP 36.7
[2016-06-06 08:41] VITALS: BP 125/84; PULSE 73; O2SAT 100
--- NOTE | 2016-06-06 09:12 | Anesthesia Progress Nt - [facility] ---
Anesthesia Post Op Note Date & Time Jun 06, 2016 at 09:12 Vital Signs Pain Intensity: 0 Vital Signs Past 12 Hours Date Time Temp Pulse Resp B/P Pulse Ox O2 Delivery O2 Flow Rate FiO2 06/06/16 08:41 73 125/84 100 Room Air 06/06/16 08:02 36.7 70 18 146/82 97 Room Air 06/06/16 06:47 36.9 78 16 115/74 96 Room Air Notes Mental Status: alert / awake / arousable, participated in evaluation Pt Amnestic to Procedure: Yes Nausea / Vomiting: adequately controlled Pain: adequately controlled Airway Patency, RR, SpO2: stable & adequate BP & HR: stable & adequate Hydration State: stable & adequate Anesthetic Complications: no major complications apparent
== END | disposition home or self-care (01) ==
LOC: X.SURG 06:12
PROVIDERS: ATTEND Ophthalmology
DX: H26.9 Unspecified cataract (principal); E08.21 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 due to underlying condition with diabetic nephropathy; N18.1 Chronic kidney disease, stage 1; Z79.899 Other long term (current) drug therapy

== ENCOUNTER → 2016-06-21 | Outpatient (CLI) | payer BC, OTHER ==
[~2016-06-21] MED LIST changes: -500ML BSS 0.3ML EPI 1:1000PF IRRIG ONE; -ACETAMINOPHEN 325 MG TAB PO PRN; -AMVISC PLUS 0.8ML SYRINGE INT OCU ONE; -ATROPINE SULFATE 0.1 MG/ML 5ML SYR IV PRN; -BSS FLUSH ONE; -EpHEDrine SULFATE INJ 50 MG/ML AMP IV PRN; -EpINEphrine INJ 1MG/ML AMP 1 MG/ML AMP ONE; -FENTANYL CITRATE INJ 50 MCG/1 ML 2 ML VIAL ONE; -LACTATED RINGER'S 1000ML 500 ML IV SCH; -LIDOCAINE 3.5% OPH GEL PER APPLICATION CHARGE ONE; -LIDOCAINE HCL 1% MPF 2 ML VIAL ONE; -MIDAZOLAM HCL 1 MG/ML 2ML VIAL ONE; -OCUCOAT 1 ML SOLN IO ONE; -POVIDONE-IODINE OP SOLN 30 ML BTL ONE; -PROPARACAINE 0.5% OP SOLN PER DROP CHARGE OPR SCH; -SPRIN/30 INH; -TOBRAMYCIN/DEXAMETHASONE OPH OINT PER APPLN CHARGE ONE
[2016-06-25 01:36] LABS: TRILEPTAL(OXCARBAZEP)36637 16.3 mcg/mL (8.0-35.0)
== END | disposition home or self-care (01) ==
LOC: C.LABBC 08:19
PROVIDERS: ATTEND Physician Assistant
DX: G40.909 Epilepsy, unspecified, not intractable, without status epilepticus (principal)

== ENCOUNTER → 2016-06-25 | Day surgery (SDC) | payer BC, OTHER ==
[2016-06-18 07:44] VITALS: Ht 165.1 cm; Wt 90.9 kg
[~2016-06-25] VITALS: Ht 165.1 cm; Wt 90.9 kg
[~2016-06-25] MED LIST changes: +500ML BSS 0.3ML EPI 1:1000PF IRRIG ONE; +ACETAMINOPHEN 325 MG TAB PO PRN; +AMVISC PLUS 0.8ML SYRINGE INT OCU ONE; +ATROPINE SULFATE 0.1 MG/ML 5ML SYR IV PRN; +BSS FLUSH ONE; +EpHEDrine SULFATE INJ 50 MG/ML AMP IV PRN; +EpINEphrine INJ 1MG/ML AMP 1 MG/ML AMP ONE; +FENTANYL CITRATE INJ 50 MCG/1 ML 2 ML VIAL IV PRN; +FENTANYL CITRATE INJ 50 MCG/1 ML 2 ML VIAL ONE; +FLUMAZENIL 0.1 MG/1 ML 10 ML VIAL IV PRN; +LABETALOL HCL IV 5 MG/ML 20ML IV PRN; +LACTATED RINGER'S 1000ML 500 ML IV SCH; +LIDOCAINE 3.5% OPH GEL PER APPLICATION CHARGE ONE; +LIDOCAINE HCL 1% MPF 2 ML VIAL ONE; +MEPERIDINE HCL 25 MG/ML CARP IV PRN; +MIDAZOLAM HCL 1 MG/ML 2ML VIAL ONE; +NALOXONE HCL 0.4 MG/1 ML VIAL/CARP IV PRN; +OCUCOAT 1 ML SOLN IO ONE; +ONDANSETRON INJ 2 MG/ML 2 ML VIAL IV PRN; +PHENYLEPHRINE 100MCG/ML 5ML SYR IV PRN; +POVIDONE-IODINE OP SOLN 30 ML BTL ONE; +PROPARACAINE 0.5% OP SOLN PER DROP CHARGE OPL SCH; +TOBRAMYCIN/DEXAMETHASONE OPH OINT PER APPLN CHARGE ONE
[2016-06-25] MEDS: PHENYLEPHRINE HCL 2.5% OP SOLN PER DROP CHARGE OPL SCH ×2 (06:46→06:51)
[2016-06-25] MEDS: TROPICAMIDE 1% OP SOLN PER DROP CHARGE OPL SCH ×2 (06:47→06:52)
[2016-06-25] MEDS: CYCLOPENTOLATE HCL 1% OP SOLN PER DROP CHARGE OPL SCH ×2 (06:48→06:53)
[2016-06-25] MEDS: KETOROLAC 0.5% OP SOLN PER DROP CHARGE OPL SCH ×2 (06:49→06:56)
[2016-06-25] MEDS: GATIFLOXACIN OP SOLN PER DROP CHARGE OPL SCH ×2 (06:50→07:00)
--- NOTE | 2016-06-25 07:00 | History & Physical Bridge - SC ---
H&P Re-Evaluation Bridge Note: I have examined the patient, reviewed the History & Physical and in the interval since the performance of the History & Physical I have noted the following changes of clinical significance: Diagnosis: Left Cataract Procedure: Left Cataract Removal with Lens Implant No changes noted
--- NOTE | 2016-06-25 07:25 | Discharge Instructions-SurgCtr ---
Discharge Instructions Date of Service Jun 25, 2016. Visit Reason for Visit: Cataract Left Eye Discharge Discharge Diagnosis / Problem: cataract Discharge Goals Goal(s): Improve function Activity Recommendations Activity Limitations: per Instructions/Follow-up section Anesthesia . Post Anesthesia Instructions: If you have had General Anesthesia or IV Sedation: * Do not drive today. * Resume driving when surgeon permits. * Do not make important decisions or sign legal documents today. * Call surgeon for: 1. Temperature elevations greater than 101 degrees F. 2. Uncontrollable pain. 3. Excessive bleeding. 4. Persistent nausea and vomiting. 5. Medication intolerance (nausea, vomiting or rash). * For nausea and vomiting use only clear liquids such as: tea, soda, bouillon until nausea subsides, then gradually increase diet as tolerated. * If you have any concerns or questions, call your surgeon's office. If physician is unavailable and it is an emergency, call 911 or go to the nearest emergency room. . Instructions / Follow-Up Instructions / Follow-Up ACTIVITY RECOMMENDATIONS: * No strenuous lifting, jogging or running for 4 days * No swimming or yard work for 1 week. * Limited bending is permitted, such as putting on shoes. RETURN TO SCHOOL/WORK: No work until seen by physician in office. MEDICATIONS: Resume previous medications unless instructed otherwise by your surgeon. This includes eye drops for glaucoma. Zymaxid/Gatifloxacin (thomson cap) - one drop every 2 hours until bedtime Nevanac/Ilevro/Prolensa/Ketorolac (jorgensen cap) - one drop every 4 hours until bedtime Prednisolone (white/pink cap, SHAKE WELL) - one drop every 2 hours until bedtime Starting tomorrow - all 3 drops every 4 hours until seen in the office Optive drops - as needed for discomfort SPECIAL CARE INSTRUCTIONS: * Wear eyeshield when sleeping, for four nights. * You may wear your own glasses or sunglasses while awake. * You may read or watch TV * You may shower and wash your face, but be gentle around the eye and pat dry. * Blurry vision and mild irritation are normal. * Call office if pain is more severe or vision becomes dark at . FOLLOW UP VISIT: Follow-up with Dr Yang tomorrow. Diet Recommendations Home Diet: resume previous diet Procedures Procedures Performed: Left Cataract Phacoemulsification With Intraocular Lens Implant Pending Studies Studies pending at discharge: no Medical Emergencies . Who to Call and When: Medical Emergencies: If at any time you feel your situation is an emergency, please call 911 immediately. . Non-Emergent Contact Non-Emergency issues call your: Bookie . . "Provider Documentation" section prepared by Kojo Yang.
--- NOTE | 2016-06-25 07:26 | [facility] Operative Report ---
Operative Report Date of Service Jun 25, 2016. Operative Report 1. PREOPERATIVE DIAGNOSIS: Cataract of the left eye. 2. POSTOPERATIVE DIAGNOSIS: Same. 3. PROCEDURE: Phacoemulsification with intraocular lens implantation of the left eye. SURGEON: Dr. Kojo Yang. ANESTHESIA: Topical Lidocaine gel, 1% Non- Preserved intracameral Lidocaine, and monitored intravenous sedation. INDICATIONS FOR THE PROCEDURE: The patient is a 50 - year-old female with a history of cataract of the left eye causing significant visual impairment. The details of the proposed procedure were explained to the patient who asked appropriate questions and following discussion of all risks, benefits and alternatives agreed to have the procedure done. 4. OPERATION AND FINDINGS: DESCRIPTION OF PROCEDURE: After informed consent was obtained, the patient was brought to the Operating Room at the [facility]. The patient was placed in a supine position and then the left eye was prepped and draped in the usual sterile fashion for intraocular surgery. A drop of topical Lidocaine gel was placed in the operative eye. A wire lid speculum was then placed in the fornices. A corneal paracentesis was then created temporally. The Non-Preserved Lidocaine was then instilled into the anterior chamber. The anterior chamber was then pressurized with viscoelastic. A 2.0 mm clear corneal incision was then created temporally. A cystotome was inserted into the anterior chamber and used to create a tear in the anterior lens capsule. This capsular tear was then used to create a small flap and the flap was dragged in a counterclockwise direction in order to create a continuous curvilinear capsulorrhexis. Hydrodissection was accomplished with balanced salt solution. Phacoemulsification of the lens nucleus was then performed in a standard [id number] technique. The phaco time was 19 seconds with an average power of 7 %. The remaining cortical material was removed using irrigation aspiration. The capsular bag was then filled with viscoelastic. A Bausch & Lomb MI60L +20.0 diopters lens was then loaded into the injector and injected into the capsular bag. The remaining viscoelastic was removed with the irrigation aspiration handpiece. The wound was hydrated and then checked and found to be watertight. The intraocular pressure was checked and found to be adequate. The wire lid speculum was removed and the patient's face was cleaned and dried. TobraDex ointment was placed in the inferior fornix. The patient was discharged to the Recovery Room having tolerated the procedure well. There were no complications. The patient will be seen tomorrow in the office for follow-up. I attest to the content of the Intraoperative Record and any orders documented therein. Any exceptions are noted below.
[2016-06-25 07:28] VITALS: TEMP 36.6
--- NOTE | 2016-06-25 07:38 | Anesthesia Progress Nt - [facility] ---
Anesthesia Post Op Note Date & Time Jun 25, 2016 at 07:37 Vital Signs Pain Intensity: 0 Vital Signs Past 12 Hours Date Time Temp Pulse Resp B/P Pulse Ox O2 Delivery O2 Flow Rate FiO2 06/25/16 07:28 36.6 66 14 101/65 94 Room Air 06/25/16 06:45 36.8 76 18 132/86 96 Room Air Notes Mental Status: alert / awake / arousable, participated in evaluation Pt Amnestic to Procedure: Yes Nausea / Vomiting: adequately controlled Pain: adequately controlled Airway Patency, RR, SpO2: stable & adequate BP & HR: stable & adequate Hydration State: stable & adequate Anesthetic Complications: no major complications apparent
[2016-06-25 07:58] VITALS: BP 136/82; PULSE 69; O2SAT 100
== END | disposition home or self-care (01) ==
LOC: X.SURG 06:18
PROVIDERS: ATTEND Ophthalmology
DX: H26.9 Unspecified cataract (principal); E11.36 Type 2 diabetes mellitus with diabetic cataract; E11.22 Type 2 diabetes mellitus with diabetic chronic kidney disease; N18.1 Chronic kidney disease, stage 1; J45.909 Unspecified asthma, uncomplicated; F41.9 Anxiety disorder, unspecified; E66.9 Obesity, unspecified; Z68.33 Body mass index [BMI] 33.0-33.9, adult; Z79.4 Long term (current) use of insulin; Z98.41 Cataract extraction status, right eye; Z88.0 Allergy status to penicillin; Z88.1 Allergy status to other antibiotic agents; Z98.890 Other specified postprocedural states; Z90.710 Acquired absence of both cervix and uterus; Z90.89 Acquired absence of other organs; Z90.49 Acquired absence of other specified parts of digestive tract

== ENCOUNTER → 2016-06-27 | Outpatient (CLI) | payer BC, OTHER ==
[~2016-06-27] MED LIST changes: -500ML BSS 0.3ML EPI 1:1000PF IRRIG ONE; -ACETAMINOPHEN 325 MG TAB PO PRN; -AMVISC PLUS 0.8ML SYRINGE INT OCU ONE; -ATROPINE SULFATE 0.1 MG/ML 5ML SYR IV PRN; -BSS FLUSH ONE; -EpHEDrine SULFATE INJ 50 MG/ML AMP IV PRN; -EpINEphrine INJ 1MG/ML AMP 1 MG/ML AMP ONE; -FENTANYL CITRATE INJ 50 MCG/1 ML 2 ML VIAL IV PRN; -FENTANYL CITRATE INJ 50 MCG/1 ML 2 ML VIAL ONE; -FLUMAZENIL 0.1 MG/1 ML 10 ML VIAL IV PRN; -LABETALOL HCL IV 5 MG/ML 20ML IV PRN; -LACTATED RINGER'S 1000ML 500 ML IV SCH; -LIDOCAINE 3.5% OPH GEL PER APPLICATION CHARGE ONE; -LIDOCAINE HCL 1% MPF 2 ML VIAL ONE; -MEPERIDINE HCL 25 MG/ML CARP IV PRN; -MIDAZOLAM HCL 1 MG/ML 2ML VIAL ONE; -NALOXONE HCL 0.4 MG/1 ML VIAL/CARP IV PRN; -OCUCOAT 1 ML SOLN IO ONE; -ONDANSETRON INJ 2 MG/ML 2 ML VIAL IV PRN; -PHENYLEPHRINE 100MCG/ML 5ML SYR IV PRN; -POVIDONE-IODINE OP SOLN 30 ML BTL ONE; -PROPARACAINE 0.5% OP SOLN PER DROP CHARGE OPL SCH; -TOBRAMYCIN/DEXAMETHASONE OPH OINT PER APPLN CHARGE ONE
--- NOTE | 2016-06-27 07:58 | DIAGNOSTIC IMAGING REPORT ---
BILIARY ULTRASOUND CLINICAL HISTORY: Hepatic cirrhosis COMPARISON STUDY: CT scan dated 04/03/2016 FINDINGS: There is coarsened hepatic echotexture, consistent with the clinical history of cirrhosis. There are no focal masses. The gallbladder is surgically absent. There is no ductal dilatation. The common buttock measures 5 mm. There is suboptimal visualization the pancreas. There is no right-sided hydronephrosis. IMPRESSION: 1. Nondiagnostic evaluation the pancreas 2. Surgically absent gallbladder 3. Coarsened hepatic echotexture consistent with a clinical history of cirrhosis. No focal hepatic masses. Electronically signed by: Bran Hernandez M.D. 06/27/2016 7:56 AM Dictated Date/Time: 06/27/2016 7:54 AM
== END | disposition home or self-care (01) ==
LOC: C.ULTR 07:18
PROVIDERS: ATTEND Internal Medicine Gastroenterology
DX: K74.69 Other cirrhosis of liver (principal)

== ENCOUNTER → 2016-08-26 | Outpatient (CLI) | payer BC, OTHER ==
[~2016-08-26] MED LIST changes: -BROM0.07 OPR; +CEFD1CAP14 PO; +CHOL100010 PO; +CRAN200C PO; +DSY50 PO; +IBUP-1451 PO; -LACT10SO30 PO; +MIRT30TA3 PO; +MIRT45TA3 PO; -PRED1SUS OPR; -PROC1TAB5 PO; -SERT100T PO; -SERT25TA PO; +TIOT1SPR INH; -TRIA37.5 PO; +VLTG EXT
[2016-08-26 12:29] LABS: BASO % 0.6 %; BASO ABS # 0.02 K/uL (0-0.2); COMPLETE YES; EOS % 3.5 %; HEMATOCRIT 28.9 % (37-47); LYMPH ABS # 0.92 K/uL (1.2-3.4); MEAN CELL VOLUME 102.8 fL (80-100); MEAN PLATELET VOLUME 10.4 fL (7.4-10.4); MONO % 8.5 %; NEUT % 58.4 %; PLATELET COUNT 64 K/uL (130-400); RED BLOOD COUNT 2.81 M/uL (4.2-5.4); WHITE BLOOD COUNT 3.17 K/uL (4.8-10.8)
[2016-08-26 12:41] LABS: ALT/SGPT 25 U/L (12-78); AST/SGOT 41 U/L (15-37); BLOOD UREA NITROGEN 13 mg/dl (7-18); BUN/CREATININE RATIO 24.3 (10-20); CALCIUM 7.7 mg/dl (8.5-10.1); CARBON DIOXIDE 27 mmol/L (21-32); CHLORIDE 113 mmol/L (98-107); CREATININE 0.53 mg/dl (0.60-1.20); GLUCOSE 97 mg/dl (70-99); POTASSIUM 3.7 mmol/L (3.5-5.1); SODIUM 146 mmol/L (136-145)
[2016-08-26 12:44] LABS: ALB/GLOB RATIO 1.2 (0.9-2); ALKALINE PHOSPHATASE 155 U/L (45-117)
== END | disposition home or self-care (01) ==
LOC: C.LAB 11:45
PROVIDERS: ATTEND Internal Medicine Hematology & Oncology
DX: D61.818 Other pancytopenia (principal)

== ENCOUNTER → 2016-08-28 | Day surgery (SDC) | payer BC, OTHER ==
[2016-08-13 13:39] VITALS: Ht 165.1 cm; Wt 88.6 kg
[~2016-08-28] VITALS: Ht 165.1 cm; Wt 88.6 kg
[~2016-08-28] MED LIST changes: +LIDOCAINE HCL 2% 2 ML VIAL (20MG/ML) ONE; +PROPOFOL IV EMULSION 10 MG/ML 20 ML VIAL IV ONE; +SODIUM CHLORIDE 0.9% 500ML 500 ML IV ONE
--- NOTE | 2016-08-28 10:24 | Endo History and Physical ---
History & Physical Date of Service: August 28, 2016. Chief Complaint: cirrhosis; r/o varices Referring Physician: Dr. Johns History of Present Illness cirrhosis; r/o varices Past Medical History Diabetes, Other Psy. Disorders, Endocrine Disorder, Asthma, Gastrointestinal Disorder, Blood Dyscrasias, Seizure Disorder, Syncopal Episodes, Liver Disease, Depression Past Surgical History Hx Cardiac Surgery: No Hx Internal Defibrillator: No Hx Pacemaker: No Hx Abdominal Surgery: Yes (APPY, FRANSICO, TIFFANIE BSO) Hx of Implantable Prosthesis: No Hx Post-Op Nausea and Vomiting: No Hx Cancer Surgery: No Hx Thoracic Surgery: No Hx Orthopedic: Yes (RT/LT CTR, LT KNEE MENISCUS REPAIR, RT/LT ANKLE RECONSTRUCTION, KYPHOPLASTY) Hx Urinary Tract Surgery: No Family History None Social History Smoking Status: Never Smoker Hx Substance Use: No Hx Alcohol Use: Yes (RARELY) Allergies Coded Allergies: Amoxicillin (Verified Allergy, Intermediate, HIVES, 08/13/16) Azithromycin (Verified Allergy, Intermediate, HIVES, 08/13/16) Baclofen (Verified Allergy, Intermediate, RASH, 08/13/16) Butalbital (Verified Allergy, Intermediate, HIVES, 08/13/16) Clarithromycin (Verified Allergy, Intermediate, RASH, 08/13/16) Dicyclomine (Verified Allergy, Intermediate, HIVES, 08/13/16) HIVES Penicillins (Verified Allergy, Intermediate, RASH, 08/13/16) PT STATES SHE GETS WELTS FROM CIPRO,LEVAQUIN ALLERGY PER DR ROBLES Tetracyclines (Verified Allergy, Intermediate, DOXYCYCLINE-HIVES, 08/13/16) Sulindac (Verified Allergy, Mild, ALLERGY LISTED "CLONDORAL"--HIVES, ) Adhesives (Verified Allergy, Unknown, RASH, DUODERM=RED,ITCHY, 08/13/16) PLASTIC TAPE IS OK!!! DUODERM=RED,ITCHY Metronidazole (Verified Allergy, Unknown, SEIZURE, 08/13/16) Tramadol (Verified Allergy, Unknown, SEIZURES, 08/13/16) Metoclopramide (Verified Adverse Reaction, Severe, SEIZURES, 08/13/16) Furosemide (Verified Adverse Reaction, Unknown, HIVES, 08/13/16) Uncoded Allergies: BLUEBERRIES (Allergy, Unknown, STOMACH PAIN, 05/22/16) ORANGE PULP (Allergy, Unknown, MIGRAINES, 05/22/16) Current Medications Reported Home Medications Medications Dose Route/Sig Max Daily Dose Days Date Category Dose Instructions Chronulac (Lactulose) 10 Gm/15 Ml Syrp 35 Ml PO BID 08/13/16 Reported Pristiq (Desvenlafaxine Succinate) 50 Mg Tab 50 Mg PO QAM 08/13/16 Reported Sinemet 25MG/100MG (Carbidopa/Levodopa) Tab 1.5 Tab PO TID 08/13/16 Reported Humalog Kwikpen (Insulin Lispro (Human)) 100 Unit/Ml Inj Units SC UD 06/18/16 Reported PER SLIDING SCALE Symbicort 160/4.5 Inhaler (Budesonide/Formoterol Fumarate) Aero 2 Puffs INH BID 06/18/16 Reported Duoneb (Ipratropium-Albuterol) 3 Ml Nebu 1 Treatment INH Q4H PRN 05/22/16 Reported Ventolin Hfa (Albuterol) 200 Puffs/54153 Mcg Aers 2-4 Puffs INH Q6H PRN 05/22/16 Reported Prilosec (Omeprazole) 20 Mg Capcr 20 Mg PO QAM 05/22/16 Reported Desyrel (Trazodone Hcl) 150 Mg Tab 2 Tab PO HS 05/22/16 Reported Toujeo Solostar (Insulin Glargine) 300 Unit/Ml Inj 39 Units SQ QAM 04/16/16 Reported Mobic (Meloxicam) 7.5 Mg Tab 1 Tab PO DAILY 30 04/05/16 Reported Lecithin 1,200 Mg Cap 1 Cap PO DAILY 04/03/16 Reported Vitamin C (Ascorbic Acid) 1,000 Mg Tab 1 Tab PO QAM 02/16/16 Reported Trileptal (Oxcarbazepine) 600 Mg Tab 600 Mg PO BID 02/10/16 Reported Cranberry (Cranberry-Vitamin C-Vitamin E) 1 Cap Cap 1 Cap PO TID 11/23/15 Reported Fluticasone Propionate 120 Sprays/6000 Mcg Inha 1-2 Sprays ABRAHAN BID 10/27/15 Reported Rizatriptan Benzoate 10 Mg Tab 10 Mg PO UD PRN 10/27/15 Reported TAKE ONE TABLET AT ONSET OF HEADACHE, MAY REPEAT AFTER 2 HOURS IF NEEDED. MAXIMUM OF 3 TABLETS IN 24 HOURS. Topiramate 25 Mg Tab 25 Mg PO BID 10/27/15 Reported Epipen (Epinephrine) 0.3 Mg/0.3 Ml Inj 0.3 Mg IM UD PRN 10/22/15 Reported Zinc (Zinc Gluconate) 50 Mg Tab 50 Mg PO BID 08/22/15 Reported Ferrous Sulfate 325 Mg Tab 325 Mg PO QAM 06/20/15 Reported Levothyroxine Sodium 75 Mcg Tab 75 Mcg PO QAM 06/20/15 Reported Xifaxan (Rifaximin) 550 Mg Tab 550 Mg PO BID 05/31/15 Reported [id number] (Vitamin A) 10,000 Unit Cap 10,000 Inter.unit PO DAILY 03/26/15 Reported Mag-Ox (Magnesium Oxide) 400 Mg Tab 400 Mg PO TID 02/12/15 Reported Levetiracetam 1,000 Mg Tab 1,500 Mg PO BID 10/30/14 Reported TAKE ONE 1000 MG TABLET ALONG WITH ONE 500 MG TABLET TO EQUAL 1500 MG DOSE TWICE A DAILY. Ranitidine HCl 150 Mg Tab 150 Mg PO BID 10/30/14 Reported Probiotic (Probiotic Product) 1 Cap Cap 1 Cap PO DAILY 12/13/13 Reported Glucose (Glucose-Vitamin C) 1 Chw Chw 1 Chw PO UD PRN 05/06/13 Reported Multivitamin (Multiple Vitamin) 1 Tab Tab 1 Tablet PO DAILY 07/02/12 Reported Vital Signs Weight (Kilograms): 88.64 Height (Feet): 5 Height (Inches): 5 Physical Exam General Appearance: WD/WN, no apparent distress Assessment and Plan EGD today
--- NOTE | 2016-08-28 11:01 | GI REPORT ---
Procedure Date: 08/28/2016 10:41 AM Procedure: Upper GI endoscopy Indications: Cirrhosis rule out esophageal varices Medicines: Propofol per Anesthesia Complications: No immediate complications. Estimated blood loss: None. Estimated Blood Loss: Estimated blood loss: none. Procedure: Pre-Anesthesia Assessment: - Prior to the procedure, a History and Physical was performed, and patient medications, allergies and sensitivities were reviewed. The patient's tolerance of previous anesthesia was reviewed. - The risks and benefits of the procedure and the sedation options and risks were discussed with the patient. All questions were answered and informed consent was obtained. - Patient identification and proposed procedure were verified prior to the procedure by the physician and the nurse. The procedure was verified in the pre-procedure area in the procedure room. - Mental Status Examination: alert and oriented. Airway Examination: normal oropharyngeal airway and neck mobility. Respiratory Examination: clear to auscultation. CV Examination: normal. Abdominal Examination: bowel sounds present, abdomen soft and non-tender, no masses or organomegaly noted. - ASA Grade Assessment: III - A patient with severe systemic disease. After obtaining informed consent, the endoscope was passed under direct vision. Throughout the procedure, the patient's blood pressure, pulse, and oxygen saturations were monitored continuously. The scope was introduced through the mouth, and advanced to the second part of duodenum. The upper GI endoscopy was accomplished without difficulty. The patient tolerated the procedure well. Findings: The esophagus was normal. The stomach was normal. The examined duodenum was normal. Impression: - Normal esophagus. - Normal stomach. - Normal examined duodenum. - No specimens collected. Recommendation: - Return to referring physician as previously scheduled. - Discharge patient to home. Erin Abraham D.O. Erin Abraham DO 08/28/2016 11:01:22 AM This report has been signed electronically. Note Initiated On: 08/28/2016 10:41 AM I attest to the content of the Intraoperative Record and orders documented therein, exceptions below
--- NOTE | 2016-08-28 11:11 | Discharge Instructions ---
Endoscopy Patient Instructions Date / Procedure(s) Performed August 28, 2016. EGD Allergy Information Coded Allergies: Amoxicillin (Verified Allergy, Intermediate, HIVES, 08/13/16) Azithromycin (Verified Allergy, Intermediate, HIVES, 08/13/16) Baclofen (Verified Allergy, Intermediate, RASH, 08/13/16) Butalbital (Verified Allergy, Intermediate, HIVES, 08/13/16) Clarithromycin (Verified Allergy, Intermediate, RASH, 08/13/16) Dicyclomine (Verified Allergy, Intermediate, HIVES, 08/13/16) HIVES Penicillins (Verified Allergy, Intermediate, RASH, 08/13/16) PT STATES SHE GETS WELTS FROM CIPRO,LEVAQUIN ALLERGY PER DR ROBLES Tetracyclines (Verified Allergy, Intermediate, DOXYCYCLINE-HIVES, 08/13/16) Sulindac (Verified Allergy, Mild, ALLERGY LISTED "CLONDORAL"--HIVES, ) Adhesives (Verified Allergy, Unknown, RASH, DUODERM=RED,ITCHY, 08/13/16) PLASTIC TAPE IS OK!!! DUODERM=RED,ITCHY Metronidazole (Verified Allergy, Unknown, SEIZURE, 08/13/16) Tramadol (Verified Allergy, Unknown, SEIZURES, 08/13/16) Metoclopramide (Verified Adverse Reaction, Severe, SEIZURES, 08/13/16) Furosemide (Verified Adverse Reaction, Unknown, HIVES, 08/13/16) Uncoded Allergies: BLUEBERRIES (Allergy, Unknown, STOMACH PAIN, 05/22/16) ORANGE PULP (Allergy, Unknown, MIGRAINES, 05/22/16) Discharge Date / Findings August 28, 2016. normal EGD; no varices Medication Instructions Restart Stopped Medication(s): OK to resume all medications as above Provider Instructions Activity Restrictions - No exercising or heavy lifting for 24 hours. - Do not drink alcohol the day of the procedure. - Do not drive a car or operate machinery until the day after the procedure. - Do not make any important decisions or sign important papers in 24 hours after the procedure. Following Day: - Return to full activity which may include returning to work/school. Diet Start your diet with liquids and light foods (jello, soup, juice, toast). Then eat your usual diet if not nauseated. Treatment For Common After Affects For mild abdominal pain, bloating, or excessive gas: - Rest - Eat lightly - Lie on right side Follow-Up Information Follow-up with Dr. Mingo Lin as scheduled Anesthesia Information What You Should Know You have had a procedure that required some medicine to reduce anxiety and discomfort. This treatment is called moderate sedation. After receiving the treatment, you may be sleepy, but you will be able to breathe on your own. The effects of the treatment may last for several hours. Follow these instructions along with Activity/Diet recommendations noted above: * Do NOT do anything where dizziness or clumsiness would be dangerous. * Rest quietly at home today, then you can be up and about tomorrow. * Have a responsible person stay with you the rest of today. * You may have had an I.V. today. If so, you may take the dressing off later today. Recommendations Call your doctor if: * Trouble breathing * Continuous vomiting for more than 24 hours * Temperature above 101 degrees * Severe abdominal pain or bloating * Pain not relieved by pain medicine ordered * There is increased drainage or redness from any incision * A large amount of rectal bleeding greater than 2-3 tablespoons. (If you had a polyp/s removed or have hemorrhoids, a small amount of blood - from the rectum is to be expected.) * You have any unanswered questions or concerns. IN THE EVENT OF A SERIOUS EMERGENCY, GO TO THE NEAREST EMERGENCY ROOM Your discharge instructions were prepared by provider Erin Abraham. Patient Instructions Signature Page Marcelle Munson Patient (or Guardian) Signature/Date: I have read and understand the instructions given to me by my caregivers. Caregiver/RN/Doctor Signature/Date: The above-named patient and/or guardian has received patient instructions on this date. + Original Patient Signature Page (only) stays with chart. Please make copy for patient.
[2016-08-28 11:25] VITALS: BP 118/62; PULSE 67; O2SAT 96
--- NOTE | 2016-08-28 11:30 | Anesthesiology Progress Note ---
Anesthesia Post Op Note Date & Time August 28, 2016 at 11:29 Vital Signs Pain Intensity: 0 Vital Signs Past 12 Hours Date Time Temp Pulse Resp B/P Pulse Ox O2 Delivery O2 Flow Rate FiO2 08/28/16 11:10 69 20 126/72 93 Room Air 08/28/16 10:55 72 20 113/68 94 Room Air 08/28/16 10:37 34 71 20 121/51 99 Room Air Notes Mental Status: alert / awake / arousable, participated in evaluation Pt Amnestic to Procedure: Yes Nausea / Vomiting: adequately controlled Pain: adequately controlled Airway Patency, RR, SpO2: stable & adequate BP & HR: stable & adequate Hydration State: stable & adequate Anesthetic Complications: no major complications apparent
== END | disposition home or self-care (01) ==
LOC: C.GI 10:00
PROVIDERS: ATTEND Internal Medicine
DX: K74.60 Unspecified cirrhosis of liver (principal); E11.9 Type 2 diabetes mellitus without complications; J45.909 Unspecified asthma, uncomplicated; D75.9 Disease of blood and blood-forming organs, unspecified; G40.909 Epilepsy, unspecified, not intractable, without status epilepticus; F32.9 Major depressive disorder, single episode, unspecified; Z79.4 Long term (current) use of insulin; Z79.899 Other long term (current) drug therapy

== ENCOUNTER 2016-09-19 11:22 | Emergency (ER) | payer BC, OTHER ==
[~2016-09-19] VITALS: Ht 165.1 cm; Wt 90.0 kg
[~2016-09-19 11:22] MED LIST changes: -ACET-1047 PO; -BUME1TAB PO; -CAFF3TAB PO; -CARB25TA12 PO; -CARB25TA14 PO; -CARB25TA16 PO; -CEFD1CAP14 PO; -CHOL100010 PO; -CHOL20009 PO; -CIPR-255 PO; -CRAN1TAB PO; -CRAN1TAB6 PO; -CRAN200C PO; -DSY50 PO; -IBUP-1451 PO; -KETO10TA PO; -KFL500 PO; -LACO50TA PO; -LCTL30 PO; -LDDP5 TD; -LIDOCAINE HCL 2% 2 ML VIAL (20MG/ML) ONE; -LUTE15CA PO; -LUTE20TA PO; -Levetiracetam PO; -MIRT15TA3 PO; -MIRT30TA2 PO; -MIRT30TA3 PO; -MIRT45TA3 PO; -MTR/400 PO; -MULT-506 PO; -NAPR-998 PO; -ONDA4TAB10 SL; -OXCA300T PO; -OXYC1TAB3 PO; -PROM12.57 PO; -PROPOFOL IV EMULSION 10 MG/ML 20 ML VIAL IV ONE; -PUMP1CAP PO; -RMR15 PO; -SODIUM CHLORIDE 0.9% 500ML 500 ML IV ONE; -SPIR25TA PO; -SUMA100T16 PO; -TIOT1SPR INH; -TOPI25TA10 PO; -TOPI25TA99 PO; -TOPI50TA16 PO; -TPM25 PO; -TRIA1SPR4 NAE; -VITA1TAB4 PO; -VITA80004 PO; -VLTG EXT; -[UNRECOGNIZED DRUG - CODE] PO; -[UNRECOGNIZED DRUG - CODE] PO
[2016-09-19 11:27] VITALS: TEMP 37; Ht 165.1 cm; Wt 90.0 kg
[2016-09-19] MEDS ORDERED: PUMP1CAP PO ×2 (12:03)
[2016-09-19] MEDS ORDERED: MIRT15TA3 PO ×2 (12:03)
[2016-09-19] MEDS ORDERED: OXCA300T PO (12:03)
[2016-09-19] MEDS ORDERED: CAFF3TAB PO ×2 (12:03)
[2016-09-19] MEDS ORDERED: VITA1TAB4 PO ×2 (12:03)
[2016-09-19] MEDS ORDERED: CHOL20009 PO ×2 (12:03)
[2016-09-19] MEDS ORDERED: LUTE20TA PO ×2 (12:03)
[2016-09-19] MEDS ORDERED: CRAN1TAB PO ×2 (12:04)
[2016-09-19] MEDS ORDERED: TOPI25TA99 PO ×2 (12:07)
[2016-09-19] MEDS ORDERED: TOPI50TA16 PO (12:07)
[2016-09-19] MEDS ORDERED: TOPI25TA10 PO ×2 (12:08)
[2016-09-19] MEDS ORDERED: SODIUM CHLORIDE 0.9% 1000ML 1,000 ML IV STA (12:34)
[2016-09-19 12:51] VITALS: O2SAT 100
[2016-09-19 13:14] LABS: HEMATOCRIT 26.3 % (37-47); MEAN CELL VOLUME 100.8 fL (80-100); MEAN CORPUSCULAR HEMOGLOBIN 35.6 pg (25-34); MEAN CORPUSCULAR HGB CONC 35.4 g/dl (32-36); RED BLOOD COUNT 2.61 M/uL (4.2-5.4); WHITE BLOOD COUNT 3.26 K/uL (4.8-10.8)
[2016-09-19 13:15] LABS: MEAN PLATELET VOLUME 9.8 fL (7.4-10.4); PLATELET COUNT 73 K/uL (130-400)
[2016-09-19 13:36] LABS: BUN/CREATININE RATIO 19.8 (10-20); CREATININE 0.49 mg/dl (0.60-1.20); MAGNESIUM 1.9 mg/dl (1.8-2.4); POTASSIUM 3.7 mmol/L (3.5-5.1)
[2016-09-19 13:40] LABS: BASO % 0.9 %; BASO ABS # 0.03 K/uL (0-0.2); COMPLETE YES; EOS % 3.4 %; IG% 0.3 %; LYMPH % 29.1 %; LYMPH ABS # 0.95 K/uL (1.2-3.4); MONO % 10.7 %; NEUT % 55.6 %
[2016-09-19 13:46] LABS: THYROID STIMULATING HORMONE 0.173 uIu/ml (0.300-4.500)
--- NOTE | 2016-09-19 13:51 | DIAGNOSTIC IMAGING REPORT ---
RIGHT HAND MIN 3 VIEWS ROUTINE CLINICAL HISTORY: Right hand pain status post trauma COMPARISON: 08/25/2015 DISCUSSION: No acute fractures are visualized. The bones are osteopenic. Small erosions are visualized the level of the proximal distal interphalangeal joints. There is mild dorsal soft tissue swelling. IMPRESSION: 1. No acute fractures 2. Soft tissue swelling 3. Osteopenia and bony erosions Electronically signed by: Bran Hernandez M.D. 09/19/2016 1:50 PM Dictated Date/Time: 09/19/2016 1:49 PM
--- NOTE | 2016-09-19 13:51 | DIAGNOSTIC IMAGING REPORT ---
RIGHT SHOULDER MIN 2 VIEWS ROUTINE CLINICAL HISTORY: right sided pain, fall Right pain. Trauma. COMPARISON: None. DISCUSSION: Moderate degenerative change. No acute bony abnormality. Cortical margins are intact. There is no evidence for soft tissue swelling. IMPRESSION: Moderate degenerative change. No acute process. Electronically signed by: Kenroy Yates M.D. 09/19/2016 1:50 PM Dictated Date/Time: 09/19/2016 1:49 PM
--- NOTE | 2016-09-19 14:23 | DIAGNOSTIC IMAGING REPORT ---
CERVICAL SPINE CT CT DOSE: HISTORY: Trauma fall, neck pain TECHNIQUE: Multiaxial CT images of the cervical spine were performed and reformatted in the sagittal and coronal plane without the use of contrast. COMPARISON: None. FINDINGS: No fractures. No subluxation. Prevertebral soft tissues and the C1-C2 interval are intact. No pneumothorax. Moderate degenerative change throughout. IMPRESSION: Moderate degenerative change. No acute bony abnormality. Electronically signed by: Kenroy Yates M.D. 09/19/2016 2:22 PM Dictated Date/Time: 09/19/2016 2:20 PM
--- NOTE | 2016-09-19 14:24 | DIAGNOSTIC IMAGING REPORT ---
HEAD CT NONCONTRAST CT DOSE: 1009.61 mGy.cm HISTORY: Fall. Head injury. EVALUATE WEAKNESS TECHNIQUE: Multiaxial CT images of the head were performed without the use of intravenous contrast. Automated exposure control was utilized for this study. Comparison: Head CT 10/31/2015. Findings: The paranasal sinuses and mastoid air cells are clear. The calvarium and skull base are intact. The ventricles and sulci are within normal limits. There is no mass, hematoma, midline shift, or acute infarct. Large frontal scalp hematoma. Impression: No acute intracranial abnormality. Large frontal scalp hematoma. Electronically signed by: Talon Cruz M.D. 09/19/2016 2:23 PM Dictated Date/Time: 09/19/2016 2:19 PM
[2016-09-19 14:26] LABS: URINE APPEARANCE CLEAR (CLEAR); URINE BILIRUBIN NEG (NEG); URINE COLOR DK YELLOW; URINE NITRITE NEG (NEG); URINE PH 6.5 (4.5-7.5); URINE SPECIFIC GRAVITY 1.019 (1.000-1.030); UROBILINOGEN NEG (NEG)
[2016-09-19 14:40] LABS: MANUAL MICROSCOPIC REQUIRED? NO; REVIEW REQ? NO
[2016-09-19 14:44] LABS: INR 1.2 (0.9-1.1); PARTIAL THROMBOPLASTIN RATIO 1.1; PROTHROMBIN TIME (PATIENT) 13.3 SECONDS (9.0-12.0)
[2016-09-19 15:57] VITALS: BP 89/52; PULSE 80; O2SAT 99
--- NOTE | 2016-09-19 20:04 | EMERGENCY ROOM VISIT NOTE ---
History Report prepared by Broderick: Blanca Morales Under the Supervision of: Dr. David Adhikari M.D. First contact with patient: 12:31 Chief Complaint: FALL Stated Complaint: HEAD BRUISE FROM A FALL/POSSIBLY A SEIZURE History of Present Illness The patient is a 50 year old female who presents to the Emergency Room with complaints of an episode of a fall that occurred just prior to arrival. The patient and her report that they believe she had a seizure. He reports that he heard her call from the bathroom, but he has no idea how long she had been on the floor. She reports hitting her head and pain in her hands, mostly on the right and right shoulder pain. The reports that no one saw the fall. The patient doesn't remember anything before or much after the fall. The notes that it has been a few months since the last concussion. The patient complains of neck pain. Pt denies visual changes, chest pain, breathing difficulties, nausea, vomiting, abdominal pain, back pain, other extremity pain, numbness, weakness, open wounds, active bleeding, or other complaints. Source of History: patient Onset: prior to arrival Position: other (global) Quality: other (global) Timing: other (episode) Associated Symptoms: + neck pain Note: The patient complains of head pain and right hand pain. Review of Systems See HPI for pertinent positives and negatives. A total of ten systems were reviewed and were otherwise negative. 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 (17) Seizure disorder Surgical Problems: (1) H/O nasal septoplasty (2) History of appendectomy (3) History of cholecystectomy (4) History of hysterectomy (5) History of kyphoplasty (6) History of tonsillectomy (7) s/p spinal stimulator placement Family History Depression Hypertension Social History Smoking Status: Never Smoker Alcohol Use: none Drug Use: none Marital Status: Housing Status: lives with significant other Occupation Status: disabled Current/Historical Medications Scheduled Ascorbic Acid (Vitamin C), 1 TAB PO QAM Budesonide/Formoterol Fumarate (Symbicort 160/4.5 Inhaler ), 2 PUFFS INH BID Caffeine-Magnesium Salicylate (Diurex 50-162.5 mg), 1 TAB PO QAM Cholecalciferol (Vitamin D), 2,000 UNITS PO DAILY Cranberry (Vaccinium Macrocarp (Cranberry), 1 TAB PO TID Desvenlafaxine Succinate (Pristiq), 50 MG PO QAM Ferrous Sulfate (Ferrous Sulfate), 325 MG PO QPM Fluticasone Propionate (Fluticasone Propionate), 1-2 SPRAYS ABRAHAN BID Insulin Glargine (Toujeo Solostar), 38 UNITS SQ QAM Insulin Lispro (Human) (Humalog Kwikpen), UNITS SC UD Lactulose (Chronulac), 30 ML PO BID Lecithin (Lecithin), 1 CAP PO DAILY Levetiracetam (Levetiracetam), 1,500 MG PO BID Levodopa/Carbidopa (Sinemet Cr 25MG/100MG), 2 TAB PO TID Levothyroxine Sodium (Levothyroxine Sodium), 75 MCG PO QAM Lutein (Lutein), 20 MG PO DAILY Magnesium Oxide (Mag-Ox), 400 MG PO TID Mirtazapine (Remeron), 15 MG PO HS Multiple Vitamin (Multivitamin), 1 TABLET PO DAILY Omeprazole (Prilosec), 20 MG PO QAM Oxcarbazepine (Trileptal), 600 MG PO QPM Oxcarbazepine (Trileptal), 300 MG PO QAM Probiotic Product (Probiotic), 1 CAP PO DAILY Pumpkin Seed-Soy Germ (Azo Bladder Control/Go-Le), 1 CAP PO DAILY Ranitidine HCl (Ranitidine HCl), 150 MG PO BID Rifaximin (Xifaxan), 550 MG PO BID Topiramate (Topamax ), 25 MG PO QAM Topiramate (Topamax), 50 MG PO QPM Vitamin A ([id number]), 10,000 INTER.UNIT PO DAILY Vitamin E (Vitamin E), 400 UNITS PO DAILY Zinc Gluconate (Zinc), 50 MG PO BID Scheduled PRN Albuterol Hfa (Ventolin Hfa), 2-4 PUFFS INH Q6H PRN for Shortness of Breath Epinephrine (Epipen), 0.3 MG IM UD PRN for ALLERGIC REACTION Glucose-Vitamin C (Glucose), 1 CHW PO UD PRN for Hypoglycemia Meloxicam (Mobic), 1 TAB PO DAILY PRN for Pain Rizatriptan Benzoate (Rizatriptan Benzoate), 10 MG PO UD PRN for Headache Allergies Coded Allergies: Amoxicillin (Verified Allergy, Intermediate, HIVES, 08/13/16) Azithromycin (Verified Allergy, Intermediate, HIVES, 08/13/16) Baclofen (Verified Allergy, Intermediate, RASH, 08/13/16) Butalbital (Verified Allergy, Intermediate, HIVES, 08/13/16) Clarithromycin (Verified Allergy, Intermediate, RASH, 08/13/16) Dicyclomine (Verified Allergy, Intermediate, HIVES, 08/13/16) HIVES Penicillins (Verified Allergy, Intermediate, RASH, 08/13/16) PT STATES SHE GETS WELTS FROM CIPRO,LEVAQUIN ALLERGY PER DR ROBLES Tetracyclines (Verified Allergy, Intermediate, DOXYCYCLINE-HIVES, 08/13/16) Sulindac (Verified Allergy, Mild, ALLERGY LISTED "CLONDORAL"--HIVES, ) Adhesives (Verified Allergy, Unknown, RASH, DUODERM=RED,ITCHY, 08/13/16) PLASTIC TAPE IS OK!!! DUODERM=RED,ITCHY Metronidazole (Verified Allergy, Unknown, SEIZURE, 08/13/16) Tramadol (Verified Allergy, Unknown, SEIZURES, 08/13/16) Metoclopramide (Verified Adverse Reaction, Severe, SEIZURES, 08/13/16) Furosemide (Verified Adverse Reaction, Unknown, HIVES, 08/13/16) Uncoded Allergies: BLUEBERRIES (Allergy, Unknown, STOMACH PAIN, 05/22/16) ORANGE PULP (Allergy, Unknown, MIGRAINES, 05/22/16) Physical Exam Vital Signs Date Time Temp Pulse Resp B/P (MAP) Pulse Ox O2 Delivery O2 Flow Rate FiO2 09/19/16 15:57 80 16 89/52 99 Room Air 09/19/16 14:38 105/51 09/19/16 14:37 88 81 09/19/16 13:47 88 22 09/19/16 13:42 83 22 09/19/16 13:37 83 21 09/19/16 13:32 86 9 09/19/16 13:31 137/79 09/19/16 13:30 136/77 09/19/16 13:30 82 14 136/77 86 137/79 09/19/16 13:27 83 6 09/19/16 13:22 83 16 09/19/16 13:12 83 28 09/19/16 13:07 86 18 09/19/16 13:02 86 20 09/19/16 12:57 86 25 09/19/16 12:52 88 26 100 09/19/16 12:51 100 09/19/16 12:47 88 20 09/19/16 12:42 86 21 09/19/16 12:37 89 13 09/19/16 12:32 86 21 09/19/16 12:31 140/91 09/19/16 12:27 89 9 09/19/16 12:22 90 22 09/19/16 12:17 90 22 09/19/16 12:17 92 09/19/16 12:12 90 22 09/19/16 12:01 168/67 09/19/16 11:27 37.0 106 18 124/74 99 Room Air Physical Exam GENERAL: Awake, alert, tired appearing, in no distress HENT: Normocephalic, atraumatic. Oropharynx unremarkable. Large contusion and abrasion to right forehead. EYES: Normal conjunctiva. Sclera non-icteric. NECK: Supple. No nuchal rigidity. FROM. No JVD. Mild neck discomfort in cervical paraspinal muscles. RESPIRATORY: Clear to auscultation. CARDIAC: Regular rate, normal rhythm. Extremities warm and well perfused. Pulses equal. ABDOMEN: Soft, non-distended. No tenderness to palpation. No rebound or guarding. No masses. RECTAL: Deferred. MUSCULOSKELETAL: Chest examination reveals no tenderness. Small hematoma over posterior right shoulder on her back. There is no CVA tenderness to palpation. No joint edema. Swelling and tenderness to right hand. LOWER EXTREMITIES: Calves are equal size bilaterally and non-tender. No edema. No discoloration. NEURO: Normal sensorium. No sensory or motor deficits noted. SKIN: No rash or jaundice noted. Abrasion on right upper chest shoulder. Medical Decision & Procedures ER Provider Diagnostic Interpretation: Radiology results as stated below per my review and radiologist interpretation: HEAD CT NONCONTRAST CT DOSE: 1009.61 mGy.cm HISTORY: Fall. Head injury. EVALUATE WEAKNESS TECHNIQUE: Multiaxial CT images of the head were performed without the use of intravenous contrast. Automated exposure control was utilized for this study. Comparison: Head CT 10/31/2015. Findings: The paranasal sinuses and mastoid air cells are clear. The calvarium and skull base are intact. The ventricles and sulci are within normal limits. There is no mass, hematoma, midline shift, or acute infarct. Large frontal scalp hematoma. Impression: No acute intracranial abnormality. Large frontal scalp hematoma. Electronically signed by: Talon Cruz M.D. 09/19/2016 2:23 PM Dictated Date/Time: 09/19/2016 2:[address] DOSE: HISTORY: Trauma fall, neck pain TECHNIQUE: Multiaxial CT images of the cervical spine were performed and reformatted in the sagittal and coronal plane without the use of contrast. COMPARISON: None. FINDINGS: No fractures. No subluxation. Prevertebral soft tissues and the C1-C2 interval are intact. No pneumothorax. Moderate degenerative change throughout. IMPRESSION: Moderate degenerative change. No acute bony abnormality. Electronically signed by: Kenroy Yates M.D. 09/19/2016 2:22 PM Dictated Date/Time: 09/19/2016 2:20 PM RIGHT SHOULDER MIN 2 VIEWS ROUTINE CLINICAL HISTORY: right sided pain, fall Right pain. Trauma. COMPARISON: None. DISCUSSION: Moderate degenerative change. No acute bony abnormality. Cortical margins are intact. There is no evidence for soft tissue swelling. IMPRESSION: Moderate degenerative change. No acute process. Electronically signed by: Kenroy Yates M.D. 09/19/2016 1:50 PM Dictated Date/Time: 09/19/2016 1:49 PM RIGHT HAND MIN 3 VIEWS ROUTINE CLINICAL HISTORY: Right hand pain status post trauma COMPARISON: 08/25/2015 DISCUSSION: No acute fractures are visualized. The bones are osteopenic. Small erosions are visualized the level of the proximal distal interphalangeal joints. There is mild dorsal soft tissue swelling. IMPRESSION: 1. No acute fractures 2. Soft tissue swelling 3. Osteopenia and bony erosions Electronically signed by: Bran Hernandez M.D. 09/19/2016 1:50 PM Dictated Date/Time: 09/19/2016 1:49 PM Laboratory Results 09/19/16 13:00 Red Blood Count 2.61, Mean Corpuscular Volume 100.8, Mean Corpuscular Hemoglobin 35.6, Mean Corpuscular Hemoglobin Concent 35.4, Mean Platelet Volume 9.8, Neutrophils (%) (Auto) 55.6, Lymphocytes (%) (Auto) 29.1, Monocytes (%) ( Auto) 10.7, Eosinophils (%) (Auto) 3.4, Basophils (%) (Auto) 0.9, Neutrophils # (Auto) 1.81, Lymphocytes # (Auto) 0.95, Monocytes # (Auto) 0.35, Eosinophils # ( Auto) 0.11, Basophils # (Auto) 0.03 09/19/16 13:00 Test 09/19/16 13:00 09/19/16 13:54 09/19/16 14:20 White Blood Count 3.26 K/uL (4.8-10.8) Red Blood Count 2.61 M/uL (4.2-5.4) Hemoglobin 9.3 g/dL (12.0-16.0) Hematocrit 26.3 % (37-47) Mean Corpuscular Volume 100.8 fL (80-100) Mean Corpuscular Hemoglobin 35.6 pg (25-34) Mean Corpuscular Hemoglobin Concent 35.4 g/dl (32-36) Platelet Count 73 K/uL (130-400) Mean Platelet Volume 9.8 fL (7.4-10.4) Neutrophils (%) (Auto) 55.6 % Lymphocytes (%) (Auto) 29.1 % Monocytes (%) (Auto) 10.7 % Eosinophils (%) (Auto) 3.4 % Basophils (%) (Auto) 0.9 % Neutrophils # (Auto) 1.81 K/uL (1.4-6.5) Lymphocytes # (Auto) 0.95 K/uL (1.2-3.4) Monocytes # (Auto) 0.35 K/uL (0.11-0.59) Eosinophils # (Auto) 0.11 K/uL (0-0.5) Basophils # (Auto) 0.03 K/uL (0-0.2) RDW Standard Deviation 50.8 fL (36.4-46.3) RDW Coefficient of Variation 14.2 % (11.5-14.5) Immature Granulocyte % (Auto) 0.3 % Immature Granulocyte # (Auto) 0.01 K/uL (0.00-0.02) Anion Gap 7.0 mmol/L (3-11) Est Creatinine Clear Calc Drug Dose 152.2 ml/min Estimated GFR () 131.7 Estimated GFR (Non- 113.6 BUN/Creatinine Ratio 19.8 (10-20) Calcium Level 8.0 mg/dl (8.5-10.1) Magnesium Level 1.9 mg/dl (1.8-2.4) Total Bilirubin 1.9 mg/dl (0.2-1) Direct Bilirubin 0.6 mg/dl (0-0.2) Aspartate Amino Transf (AST/SGOT) 51 U/L (15-37) Alanine Aminotransferase (ALT/SGPT) 39 U/L (12-78) Alkaline Phosphatase 139 U/L (45-117) Ammonia 83.0 umol/L (11-32) Total Protein 5.4 gm/dl (6.4-8.2) Albumin 3.0 gm/dl (3.4-5.0) Lipase 80 U/L (73-393) Thyroid Stimulating Hormone (TSH) 0.173 uIu/ml (0.300-4.500) Urine Color DK YELLOW Urine Appearance CLEAR (CLEAR) Urine pH 6.5 (4.5-7.5) Urine Specific Thompson 1.019 (1.000-1.030) Urine Protein NEG (NEG) Urine Glucose (UA) NEG (NEG) Urine Ketones NEG (NEG) Urine Occult Blood NEG (NEG) Urine Nitrite NEG (NEG) Urine Bilirubin NEG (NEG) Urine Urobilinogen NEG (NEG) Urine Leukocyte Esterase TRACE (NEG) Urine WBC (Auto) 1-5 /hpf (0-5) Urine RBC (Auto) 0-4 /hpf (0-4) Urine Hyaline Casts (Auto) 1-5 /lpf (0-5) Urine Epithelial Cells (Auto) 10-20 /lpf (0-5) Urine Bacteria (Auto) NEG (NEG) Prothrombin Time 13.3 SECONDS (9.0-12.0) Prothromb Time International Ratio 1.2 (0.9-1.1) Activated Partial Thromboplast Time 28.7 SECONDS (21.0-31.0) Partial Thromboplastin Ratio 1.1 Laboratory results reviewed by me Medications Administered Medications (Trade) Dose Ordered Sig/Danita Route Start Time Stop Time Status Last Admin Dose Admin Sodium Chloride 1,000 ml @ 999 mls/hr Q1H1M STAT IV 09/19/16 12:34 09/19/16 13:34 DC 09/19/16 12:34 999 MLS/HR Heparin Sodium (Porcine) (Heparin 10 Unit/ ml 5 ml Flush) 5 ml STK-MED ONCE .ROUTE 09/19/16 15:55 09/19/16 15:56 DC 09/19/16 15:55 5 ML ECG Indication: other (fall) Rate (beats per minute): 85 Rhythm: normal sinus Findings: no acute ischemic change, no ectopy ED Course 1234: Ordered NSS 1000 ml @ 999 mls/hr IV. 1250: The patient was evaluated in room B7. A complete history and physical exam was performed. 1555: Ordered Heparin Sodium (Porcine) 5 ml .ROUTE. 1601: I reevaluated the patient and she is doing well. She didn't want any Tylenol or Ibuprofen here. Discussed results and discharge instructions: She verbalized understanding and agreement. The patient is ready for discharge. Medical Decision Medication Reconciliation: I attest that I have personally reviewed the patient' s current medication list Blood pressure screening: Patient was found to have normal blood pressure on screening and does not require follow-up. Triage Nursing notes reviewed. The patient's presentation and history were concerning for a fall and possible seizure. Etiologies such as soft tissue injury, fracture, intracranial injury, dislocation, neurovascular compromise, electrolyte abnormality, hyperammonemia, as well as others were entertained. The patient was evaluated. She is well-known to the emergency department. She had a fall. She had a forehead contusion and hematoma. The patient had bruising on the right shoulder as well as some swelling to the right hand. X- ray imaging was ordered of the right shoulder and hand. CT imaging of the head and neck were performed. No serious pathology was found. The patient appears to have multiple contusions and abrasions. She has pancytopenia on her CBC which is stable. The patient has hyperammonemia but this is better and she has no significant alteration in mental status. The remainder of the patient's diagnostic testing was unremarkable. Her LFT elevation is stable. The patient was given ice pack. She declined nonnarcotic analgesia. I discussed conservative management with the patient and her . The patient will follow-up in the office. If she has any worsening problems she will come back to the emergency department for reevaluation. Impression Primary Impression: Closed head injury Additional Impressions: Scalp hematoma Contusion of right shoulder Scribe Attestation The scribe's documentation has been prepared under my direction and personally reviewed by me in its entirety. I confirm that the note above accurately reflects all work, treatment, procedures, and medical decision making performed by me. Departure Information Dispostion Home / Self-Care Referrals Mingo Lin M.D. (PCP) Forms HOME CARE DOCUMENTATION FORM, IMPORTANT VISIT INFORMATION Patient Instructions My [facility] Additional Instructions Continue current medications. Ice compresses for 20 minutes at a time four times daily for 2-3 days. Rest and elevate your injuries. Return to the ER immediately for any headache, passing out, vomiting, confusion , numbness, tingling, severe pain, extreme swelling in the extremity or as needed. Follow-up with your primary care physician in 2 to 3 days for a recheck of your current condition. Problem Qualifiers
[2016-09-28] MEDS ORDERED: Levetiracetam PO ×2 (09:59)
[2016-10-14] MEDS ORDERED: CARB25TA16 PO ×2 (10:30)
[2016-10-24] MEDS ORDERED: LACT10SO17 PO (12:57)
[2016-10-24] MEDS ORDERED: KETO10TA PO (12:57)
[2016-10-24] MEDS ORDERED: INSU1.2I SQ (12:57)
[2016-10-24] MEDS ORDERED: LACO50TA PO (12:57)
[2016-12-25] MEDS ORDERED: KFL500 PO (16:53)
[2016-12-25] MEDS ORDERED: BUME1TAB PO (16:53)
[2016-12-26] MEDS ORDERED: CIPR-255 PO (10:04)
[2017-01-01] MEDS ORDERED: [UNRECOGNIZED DRUG - CODE] PO (07:45)
[2017-01-01] MEDS ORDERED: OXYC1TAB3 PO (07:45)
== END 2016-09-19 16:20 | disposition home or self-care (01) ==
LOC: C.EDB 11:24
DX: S00.03XA Contusion of scalp, initial encounter (principal); S40.011A Contusion of right shoulder, initial encounter; W19.XXXA Unspecified fall, initial encounter; Y92.012 Bathroom of single-family (private) house as the place of occurrence of the external cause; J45.909 Unspecified asthma, uncomplicated; F31.9 Bipolar disorder, unspecified; K74.60 Unspecified cirrhosis of liver; E11.43 Type 2 diabetes mellitus with diabetic autonomic (poly)neuropathy; G43.909 Migraine, unspecified, not intractable, without status migrainosus; D46.9 Myelodysplastic syndrome, unspecified; K27.9 Peptic ulcer, site unspecified, unspecified as acute or chronic, without hemorrhage or perforation; G40.909 Epilepsy, unspecified, not intractable, without status epilepticus; Z82.49 Family history of ischemic heart disease and other diseases of the circulatory system; Z79.4 Long term (current) use of insulin; Z79.899 Other long term (current) drug therapy

== ENCOUNTER → 2016-09-25 | Outpatient (CLI) | payer BC ==
[~2016-09-25] MED LIST changes: +ACET-1047 PO; +BUME1TAB PO; +CAFF3TAB PO; +CARB25TA14 PO; +CARB25TA16 PO; +CHOL20009 PO; +CIPR-255 PO; -CRAN1CAP15 PO; +CRAN1TAB PO; +CRAN1TAB6 PO; -IPRASOL4 INH; +KETO10TA PO; +KFL500 PO; +LACO50TA PO; +LCTL30 PO; +LDDP5 TD; +LUTE15CA PO; +LUTE20TA PO; +Levetiracetam PO; +MIRT15TA3 PO; +MIRT30TA2 PO; +MTR/400 PO; +MULT-506 PO; +NAPR-998 PO; +ONDA4TAB10 SL; +OXCA300T PO; +OXYC1TAB3 PO; +PROM12.57 PO; +PUMP1CAP PO; +RMR15 PO; +SPIR25TA PO; +SUMA100T16 PO; -TOPI25CA2 PO; +TOPI25TA10 PO; +TOPI25TA99 PO; +TOPI50TA16 PO; -TRAZ1TAB52 PO; +TRIA1SPR4 NAE; +VITA1TAB4 PO; +VITA80004 PO; +[UNRECOGNIZED DRUG - CODE] PO; +[UNRECOGNIZED DRUG - CODE] PO
== END | disposition home or self-care (01) ==
LOC: C.LABSPEC 18:21
PROVIDERS: ATTEND Nurse Practitioner Family
DX: E11.9 Type 2 diabetes mellitus without complications (principal)

== ENCOUNTER → 2016-09-26 | Outpatient (CLI) | payer BC, OTHER ==
[~2016-09-26] MED LIST changes: +CRAN1CAP15 PO; +IPRASOL4 INH; +TOPI25CA2 PO; +TRAZ1TAB52 PO
== END | disposition home or self-care (01) ==
LOC: C.LABBC 11:16
PROVIDERS: ATTEND Psychiatry & Neurology Neurology
DX: G40.909 Epilepsy, unspecified, not intractable, without status epilepticus (principal)

== ENCOUNTER 2016-09-27 04:48 | Inpatient (IN) | payer BC, OTHER ==
[~2016-09-27] VITALS: Ht 165.1 cm; Wt 93.7 kg
[~2016-09-27 04:48] MED LIST changes: -ACET-1047 PO; -BUME1TAB PO; -CARB25TA14 PO; -CARB25TA16 PO; -CIPR-255 PO; -CRAN1TAB6 PO; -KETO10TA PO; -KFL500 PO; -LACO50TA PO; -LCTL30 PO; -LDDP5 TD; -LUTE15CA PO; -Levetiracetam PO; -MIRT30TA2 PO; -MTR/400 PO; -MULT-506 PO; -NAPR-998 PO; -ONDA4TAB10 SL; -OXYC1TAB3 PO; -PROM12.57 PO; -RMR15 PO; -SPIR25TA PO; -SUMA100T16 PO; -TRIA1SPR4 NAE; -VITA80004 PO; -[UNRECOGNIZED DRUG - CODE] PO; -[UNRECOGNIZED DRUG - CODE] PO
--- NOTE | 2016-09-27 05:22 | EMERGENCY ROOM VISIT NOTE ---
History Report prepared by Broderick: Amalia Landaverde Under the Supervision of: Dr. Gerri Nieves D.O. First contact with patient: 04:51 Chief Complaint: SEIZURE Stated Complaint: SEIZURE Nursing Triage Summary: c/o seizure x 2 tonight unwitnessed. pt was seen here last week for same with a fall. pt c/o pain to top of head and right hand. pt has old bruising to bilateral eyes, arms, hands, back. pt is currently taking keppra, topamax and trileptal. History of Present Illness The patient is a 50 year old female who presents to the Emergency Room with complaints of two sudden seizures that occurred around 0200 and then again at 0400. She currently rates her discomfort as an 8/10 in severity. The patient states that she has a known seizure history and follows with Dr. Gonzalez, Neurology. She states that on September 06, Dr. Gonzalez reduced her Trileptal from 2 tablets in the morning to one. The patient states that this was because she had been doing well. She states that she had a seizure on September 19 that caused multiple bruises to her body. The patient states that she saw Dr. Gonzalez again five days ago and states that her Trileptal was increased back to two tablets in the morning. The patient states that this evening she had two seizures while in bed. She associates head pain this morning, noting she believes she hit her head off the headboard of the bed. The patient denies that she has been going up steps at home. She states that she had a steroid injection in her back yesterday that has caused elevated blood glucose levels. The patient denies any back pain. She states that she tried to get in touch with her who is working this morning, but states that she has not been able to. Source of History: patient Onset: 0 and 0 Position: other (global) Symptom Intensity: 8/10 Quality: other (seizures) Timing: other (two sudden) Associated Symptoms: + headache Review of Systems See HPI for pertinent positives & negatives. A total of 10 systems reviewed and were otherwise negative. 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 (17) Seizure disorder Surgical Problems: (1) H/O nasal septoplasty (2) History of appendectomy (3) History of cholecystectomy (4) History of hysterectomy (5) History of kyphoplasty (6) History of tonsillectomy (7) s/p spinal stimulator placement Family History Depression Hypertension Social History Smoking Status: Never Smoker Alcohol Use: none Drug Use: none Marital Status: Housing Status: lives with significant other Occupation Status: disabled Current/Historical Medications Scheduled Ascorbic Acid (Vitamin C), 1,000 MG PO QAM Budesonide/Formoterol Fumarate (Symbicort 160/4.5 Inhaler ), 2 PUFFS INH BID Caffeine-Magnesium Salicylate (Diurex 50-162.5 mg), 1 TAB PO QAM Cholecalciferol (Vitamin D), 2,000 UNITS PO DAILY Cranberry (Vaccinium Macrocarp (Cranberry), 1 TAB PO TID Desvenlafaxine Succinate (Pristiq), 50 MG PO QAM Ferrous Sulfate (Ferrous Sulfate), 325 MG PO QPM Fluticasone Propionate (Fluticasone Propionate), 1-2 SPRAYS ABRAHAN BID Insulin Glargine (Toujeo Solostar), 38 UNITS SQ QAM Insulin Lispro (Human) (Humalog Kwikpen), UNITS SC UD Lactulose (Chronulac), 30 ML PO BID Lecithin (Lecithin), 1,200 MG PO DAILY Levetiracetam (Levetiracetam), 1,500 MG PO BID Levodopa/Carbidopa (Sinemet Cr 25MG/100MG), 2 TAB PO TID Levothyroxine Sodium (Levothyroxine Sodium), 75 MCG PO QAM Lutein (Lutein), 20 MG PO DAILY Magnesium Oxide (Mag-Ox), 400 MG PO TID Mirtazapine (Remeron), 15 MG PO HS Multiple Vitamin (Multivitamin), 1 TABLET PO DAILY Omeprazole (Prilosec), 20 MG PO QAM Oxcarbazepine (Trileptal), 600 MG PO BID Probiotic Product (Probiotic), 1 CAP PO DAILY Pumpkin Seed-Soy Germ (Azo Bladder Control/Go-Le), 1 CAP PO DAILY Ranitidine HCl (Ranitidine HCl), 150 MG PO BID Rifaximin (Xifaxan), 550 MG PO BID Topiramate (Topamax ), 25 MG PO QAM Topiramate (Topamax), 50 MG PO QPM Vitamin A ([id number]), 10,000 INTER.UNIT PO DAILY Vitamin E (Vitamin E), 400 UNITS PO DAILY Zinc Gluconate (Zinc), 50 MG PO BID Scheduled PRN Albuterol Hfa (Ventolin Hfa), 2-4 PUFFS INH Q6H PRN for Shortness of Breath Epinephrine (Epipen), 0.3 MG IM UD PRN for ALLERGIC REACTION Glucose-Vitamin C (Glucose), 1 CHW PO UD PRN for Hypoglycemia Meloxicam (Mobic), 7.5 MG PO DAILY PRN for Pain Rizatriptan Benzoate (Rizatriptan Benzoate), 10 MG PO UD PRN for Headache Allergies Coded Allergies: Amoxicillin (Verified Allergy, Intermediate, HIVES, 08/13/16) Azithromycin (Verified Allergy, Intermediate, HIVES, 08/13/16) Baclofen (Verified Allergy, Intermediate, RASH, 08/13/16) Butalbital (Verified Allergy, Intermediate, HIVES, 08/13/16) Clarithromycin (Verified Allergy, Intermediate, RASH, 08/13/16) Dicyclomine (Verified Allergy, Intermediate, HIVES, 08/13/16) HIVES Penicillins (Verified Allergy, Intermediate, RASH, 08/13/16) PT STATES SHE GETS WELTS FROM [facility] PER DR ROBLES Tetracyclines (Verified Allergy, Intermediate, DOXYCYCLINE-HIVES, 08/13/16) Sulindac (Verified Allergy, Mild, ALLERGY LISTED "CLONDORAL"--HIVES, ) Adhesives (Verified Allergy, Unknown, RASH, DUODERM=RED,ITCHY, 08/13/16) PLASTIC TAPE IS OK!!! DUODERM=RED,ITCHY Metronidazole (Verified Allergy, Unknown, SEIZURE, 08/13/16) Tramadol (Verified Allergy, Unknown, SEIZURES, 08/13/16) Metoclopramide (Verified Adverse Reaction, Severe, SEIZURES, 08/13/16) Furosemide (Verified Adverse Reaction, Unknown, HIVES, 08/13/16) Uncoded Allergies: BLUEBERRIES (Allergy, Unknown, STOMACH PAIN, 05/22/16) ORANGE PULP (Allergy, Unknown, MIGRAINES, 05/22/16) Physical Exam Vital Signs Date Time Temp Pulse Resp B/P (MAP) Pulse Ox O2 Delivery O2 Flow Rate FiO2 09/27/16 06:53 81 09/27/16 06:51 80 16 125/50 98 Room Air 09/27/16 04:53 88 09/27/16 04:51 36.6 87 24 196/88 100 Room Air Physical Exam General: Seems sleepy and slow to answer questions. HEENT: Old hematoma on the right tempo-parietal region of the scalp, old contusions over forehead and both eyes. Pupils are equal, round, and reactive to light. Extraocular eye muscles are intact and sclera are anicteric. Ears - bilaterally patent canals with noninjected tympanic membranes and no evidence of hemotympanum. Nose - moist nasal mucosa without discharge. Mouth - moist buccal mucosa. Oropharynx is nonerythematous and there is no tonsillar exudate or edema noted. Neck: Supple; no JVD, nuchal rigidity, cervical lymphadenopathy. Heart: Regular rate and rhythm. There is a normal S1 and S2 with no murmurs, clicks, or gallops appreciated. Lungs: Clear to auscultation bilaterally with no wheezes, rales, or rhonchi. Abdomen: Soft, completely nontender, nondistended, with good bowel sounds. There are no palpable pulsatile masses or hepatosplenomegaly. There is no guarding, rigidity, or rebound noted. Back: Old contusion to the right upper back. Extremities: Old contusions to the right hand. No evidence of cyanosis, clubbing, or edema. There are easily palpable peripheral pulses. Neuro:The patient is awake and alert, oriented to day, time, and place. Muscle strength is 5/5 in all 4 extremities. The patient has equal director group sales strength and equal pedal push and pull. There are no cerebellar signs. Medical Decision & Procedures ER Provider Diagnostic Interpretation: CT results as stated below per my review and radiologist interpretation: CT HEAD: Comparison: 09/19/16 No evidence of acute infarct, hemorrhage, mass or edema. Presumed resolving right frontal scalp soft tissue hematoma. No acute calvarial abnormality. The sinuses are patent. Radiologist: Eagle Camejo MD Study ready at 0544 and initial results transmitted at 0691 Laboratory Results 09/27/16 05:15 Red Blood Count 2.58, Mean Corpuscular Volume 101.2, Mean Corpuscular Hemoglobin 36.8, Mean Corpuscular Hemoglobin Concent 36.4, Mean Platelet Volume 10.1, Neutrophils (%) (Auto) 75.0, Lymphocytes (%) (Auto) 14.8, Monocytes (%) ( Auto) 9.1, Eosinophils (%) (Auto) 0.7, Basophils (%) (Auto) 0.2, Neutrophils # ( Auto) 3.39, Lymphocytes # (Auto) 0.67, Monocytes # (Auto) 0.41, Eosinophils # ( Auto) 0.03, Basophils # (Auto) 0.01 09/27/16 05:15 Test 09/27/16 05:15 White Blood Count 4.52 K/uL (4.8-10.8) Red Blood Count 2.58 M/uL (4.2-5.4) Hemoglobin 9.5 g/dL (12.0-16.0) Hematocrit 26.1 % (37-47) Mean Corpuscular Volume 101.2 fL (80-100) Mean Corpuscular Hemoglobin 36.8 pg (25-34) Mean Corpuscular Hemoglobin Concent 36.4 g/dl (32-36) Platelet Count 79 K/uL (130-400) Mean Platelet Volume 10.1 fL (7.4-10.4) Neutrophils (%) (Auto) 75.0 % Lymphocytes (%) (Auto) 14.8 % Monocytes (%) (Auto) 9.1 % Eosinophils (%) (Auto) 0.7 % Basophils (%) (Auto) 0.2 % Neutrophils # (Auto) 3.39 K/uL (1.4-6.5) Lymphocytes # (Auto) 0.67 K/uL (1.2-3.4) Monocytes # (Auto) 0.41 K/uL (0.11-0.59) Eosinophils # (Auto) 0.03 K/uL (0-0.5) Basophils # (Auto) 0.01 K/uL (0-0.2) RDW Standard Deviation 54.4 fL (36.4-46.3) RDW Coefficient of Variation 15.1 % (11.5-14.5) Immature Granulocyte % (Auto) 0.2 % Immature Granulocyte # (Auto) 0.01 K/uL (0.00-0.02) Large Platelets 1+ Anion Gap 8.0 mmol/L (3-11) Est Creatinine Clear Calc Drug Dose 163.3 ml/min Estimated GFR () 134.4 Estimated GFR (Non- 116.0 BUN/Creatinine Ratio 20.2 (10-20) Calcium Level 8.5 mg/dl (8.5-10.1) Total Bilirubin 1.5 mg/dl (0.2-1) Direct Bilirubin 0.6 mg/dl (0-0.2) Aspartate Amino Transf (AST/SGOT) 65 U/L (15-37) Alanine Aminotransferase (ALT/SGPT) 41 U/L (12-78) Alkaline Phosphatase 215 U/L (45-117) Ammonia 86.0 umol/L (11-32) Total Protein 5.5 gm/dl (6.4-8.2) Albumin 2.9 gm/dl (3.4-5.0) Laboratory results per my review. Procedure Seizure precautions were taken ED Course 0503: Past medical records reviewed. The patient was evaluated in room B2. A complete history and physical exam was performed. Seizure precautions were taken. Her port was accessed. Labs were drawn as above. The patient went for CT scan of her brain since she had increased head pain and possible new trauma to her head during the seizures. 0655: I reevaluated the patient and she is resting. I discussed the exam findings with her and I discussed the treatment plan. She verbalized complete understanding and agreement. She will be evaluated for further treatment. 0722: I discussed the patients case with TAVARES Davidson. He is going to evaluate the patient for further treatment. Medical Decision The patient is a 50 year old female who presents to the ED with two sudden seizures. Differential diagnosis includes status epilepticus, elevated ammonia level, new head injury, subtherapeutic anticonvulsant levels. Lab interpretation: white count 4.5, hemoglobin 9.5, platelet count 79, normal renal function, glucose 196, ammonia level 86, total bilirubin 1.5, direct bilirubin 0.6. Patient was found to have normal blood pressure on screening and does not require follow-up. I attest that I have personally reviewed the patient's current medication list. It seems that the patient's neurologist decreased her dose of Trileptal sometime last week. She then suffered some seizures. One of them resulted in significant trauma to her head and face. The neurologist then increased her back up to her usual dose. The patient believes that she had a seizure yesterday during her group therapy session. She then had 2 seizures overnight. Because of the recurrent seizures, I felt the patient would require admission into the hospital. I have discussed case with the [facility] and they will evaluate for further management. Consults Time Called: 715 Consulting Physician: TAVARES Davidson Returned Call: [phone] I discussed the patients case with TAVARES Davidson. He is going to evaluate the patient for further treatment. Impression Primary Impression: Seizure Scribe Attestation The scribe's documentation has been prepared under my direction and personally reviewed by me in its entirety. I confirm that the note above accurately reflects all work, treatment, procedures, and medical decision making performed by me. Departure Information Dispostion Being Evaluated By Hospitalist Referrals Mingo Lin M.D. (PCP)
[2016-09-27 05:28] LABS: HEMATOCRIT 26.1 % (37-47); MEAN CELL VOLUME 101.2 fL (80-100); MEAN CORPUSCULAR HEMOGLOBIN 36.8 pg (25-34); MEAN CORPUSCULAR HGB CONC 36.4 g/dl (32-36); RED BLOOD COUNT 2.58 M/uL (4.2-5.4); WHITE BLOOD COUNT 4.52 K/uL (4.8-10.8)
[2016-09-27 05:33] LABS: MEAN PLATELET VOLUME 10.1 fL (7.4-10.4); PLATELET COUNT 79 K/uL (130-400)
[2016-09-27 05:50] LABS: BASO % 0.2 %; BASO ABS # 0.01 K/uL (0-0.2); COMPLETE YES; EOS % 0.7 %; IG% 0.2 %; LARGE PLATELETS 1+; LYMPH % 14.8 %; LYMPH ABS # 0.67 K/uL (1.2-3.4); MONO % 9.1 %
[2016-09-27 06:21] LABS: BUN/CREATININE RATIO 20.2 (10-20); CALCIUM 8.5 mg/dl (8.5-10.1); CREATININE 0.46 mg/dl (0.60-1.20)
[2016-09-27 06:45] VITALS: O2SAT 98; Ht 165.1 cm; Wt 93.7 kg
--- NOTE | 2016-09-27 07:18 | DIAGNOSTIC IMAGING REPORT ---
HEAD CT NONCONTRAST CT DOSE: 537.48 mGy.cm HISTORY: Seizures. eval for new trauma TECHNIQUE: Multiaxial CT images of the head were performed without the use of intravenous contrast. Automated exposure control was utilized for this study. Comparison: Head CT 09/19/2016. Findings: The paranasal sinuses and mastoid air cells are clear. The calvarium and skull base are intact. The ventricles and sulci are within normal limits. There is no mass, hematoma, midline shift, or acute infarct. Resolving right frontal scalp hematoma. Impression: No acute intracranial abnormality. Resolving right frontal scalp hematoma. Electronically signed by: Talon Cruz M.D. 09/27/2016 7:16 AM Dictated Date/Time: 09/27/2016 7:14 AM
[2016-09-27] MEDS ORDERED: POLYETHYLENE (MIRALAX) 17 GM PACK PO PRN (08:00)
[2016-09-27] MEDS ORDERED: IBUPROFEN 200 MG TAB PO PRN (08:00)
[2016-09-27] MEDS ORDERED: ALUMINUM/MAGNESIUM/SIMETH (MAALOX MAX) 30 ML UDC PO PRN (08:00)
[2016-09-27] MEDS ORDERED: NITROGLYCERIN 0.4 MG SL PER TAB CHARGE SL PRN (08:00)
[2016-09-27] MEDS ORDERED: ONDANSETRON INJ 2 MG/ML 2 ML VIAL IV PRN (08:00)
[2016-09-27] MEDS ORDERED: RIZATRIPTAN BENZOATE 10 MG TAB PO PRN (08:00)
[2016-09-27] MEDS ORDERED: MELOXICAM 7.5 MG TAB PO PRN (08:00)
[2016-09-27] MEDS ORDERED: MAGNESIUM HYDROXIDE SUSP 30 ML UDC PO PRN (08:00)
[2016-09-27] MEDS ORDERED: ALBUTEROL HFA 8 GM INHALER INH PRN (08:00)
--- NOTE | 2016-09-27 08:37 | History and Physical ---
History & Physical Date & Time of Service: Sep 27, 2016 at 08:11 Chief Complaint: Seizure Primary Care Physician: Mingo Lin M.D. History of Present Illness Source: patient, family (- at bedside ), clinic records, hospital records Patient is a pleasant 50 y/o female, with PMHx liver cirrhosis, T2DM, hypothyroidism, seizure disorder, migraines, asthma, parkinsonism, bipolar disorder, chronic pancytopenia, and GERD, who presented to the ED because seizures. Patient has a known history of seizure disorder, which she follows w/ Dr. Gonzalez. According to the patient, at the beginning of the month, Dr. Gonzalez decreased her Trileptal medication from 600 mg QAM to 300 mg QAM because the patient has been doing well. Last (09/19), the patient experienced a seizure. She followed-up w/ Dr. Gonzalez on Friday (09/23), and her Trileptal was increased back to 600 mg QAM. Patient presented to ED today because she experienced two, unwitnessed, seizures last night. Patient does have bruising to bilateral eyes (R>L) and to right shoulder from seizure on 09/19. She denies any injures from seizures overnight. Per Dr. Gonzalez's note, patient was to get Trileptal level (obtained on 09/26) and get an up-to-date EEG (not completed). Additionally, patient was started on Pristiq by her psychiatrist 2 months ago- Dr. Gonzalez was to contact psychiatrist for ?of drug interaction. Otherwise, the patient has been doing well. She has been taking her medications as prescribed. Her sugars have been controlled, except over the last 24 hours because she received a steroid injection on 09/26. Patient denies any fever, chills, sweats, lightheadedness, dizziness, vision changes, CP, palpitations, edema, SOB, wheezing, cough, abdominal pain, nausea, vomiting, diarrhea, urinary symptoms, melena, numbness/tingling, weakness, muscle/joint pain, anxiety/depression, active bleeding, or new skin discoloration/changes. Past Medical/Surgical History Medical Problems: liver cirrhosis T2DM hypothyroidism seizure disorder migraines asthma parkinsonism bipolar disorder chronic pancytopenia GERD Surgical Problems: (1) H/O nasal septoplasty Status: Chronic (2) History of appendectomy Status: Chronic (3) History of cholecystectomy Status: Chronic (4) History of hysterectomy Status: Chronic (5) History of kyphoplasty Permanent Comment: lumbar Status: Chronic (6) History of tonsillectomy Status: Chronic (7) s/p spinal stimulator placement Status: Chronic Family History Depression Hypertension Social History Smoking Status: Never Smoker Drug Use: none Marital Status: Housing status: lives with family Occupational Status: disabled Immunizations History of Influenza Vaccine: Yes Influenza Vaccine Date: Feb 02, 2013 History of Tetanus Vaccine?: utd Tetanus Immunization Date: Jun 11, 2008 History of Pneumococcal: SEE LAST PACKET Pneumococcal Date: Nov 13, 2008 History of Hepatitis B Vaccine: Unknown Hepatitis Immunization Date: Jan 12, 1996 Multi-Drug Resistant Organisms History of MDRO: No Allergies Coded Allergies: Amoxicillin (Verified Allergy, Intermediate, HIVES, 08/13/16) Azithromycin (Verified Allergy, Intermediate, HIVES, 08/13/16) Baclofen (Verified Allergy, Intermediate, RASH, 08/13/16) Butalbital (Verified Allergy, Intermediate, HIVES, 08/13/16) Clarithromycin (Verified Allergy, Intermediate, RASH, 08/13/16) Dicyclomine (Verified Allergy, Intermediate, HIVES, 08/13/16) HIVES Penicillins (Verified Allergy, Intermediate, RASH, 08/13/16) PT STATES SHE GETS WELTS FROM CIPRO,LEVAQUIN ALLERGY PER DR ROBLES Tetracyclines (Verified Allergy, Intermediate, DOXYCYCLINE-HIVES, 08/13/16) Sulindac (Verified Allergy, Mild, ALLERGY LISTED "CLONDORAL"--HIVES, ) Adhesives (Verified Allergy, Unknown, RASH, DUODERM=RED,ITCHY, 08/13/16) PLASTIC TAPE IS OK!!! DUODERM=RED,ITCHY Metronidazole (Verified Allergy, Unknown, SEIZURE, 08/13/16) Tramadol (Verified Allergy, Unknown, SEIZURES, 08/13/16) Metoclopramide (Verified Adverse Reaction, Severe, SEIZURES, 08/13/16) Furosemide (Verified Adverse Reaction, Unknown, HIVES, 08/13/16) Uncoded Allergies: BLUEBERRIES (Allergy, Unknown, STOMACH PAIN, 05/22/16) ORANGE PULP (Allergy, Unknown, MIGRAINES, 05/22/16) Home Medications Scheduled Ascorbic Acid (Vitamin C), 1,000 MG PO QAM Budesonide/Formoterol Fumarate (Symbicort 160/4.5 Inhaler ), 2 PUFFS INH BID Caffeine-Magnesium Salicylate (Diurex 50-162.5 mg), 1 TAB PO QAM Cholecalciferol (Vitamin D), 2,000 UNITS PO DAILY Cranberry (Vaccinium Macrocarp (Cranberry), 1 TAB PO TID Desvenlafaxine Succinate (Pristiq), 50 MG PO QAM Ferrous Sulfate (Ferrous Sulfate), 325 MG PO QPM Fluticasone Propionate (Fluticasone Propionate), 1-2 SPRAYS ABRAHAN BID Insulin Glargine (Toujeo Solostar), 38 UNITS SQ QAM Insulin Lispro (Human) (Humalog Kwikpen), UNITS SC UD Lactulose (Chronulac), 30 ML PO BID Lecithin (Lecithin), 1,200 MG PO DAILY Levetiracetam (Levetiracetam), 1,500 MG PO BID Levodopa/Carbidopa (Sinemet Cr 25MG/100MG), 2 TAB PO TID Levothyroxine Sodium (Levothyroxine Sodium), 75 MCG PO QAM Lutein (Lutein), 20 MG PO DAILY Magnesium Oxide (Mag-Ox), 400 MG PO TID Mirtazapine (Remeron), 15 MG PO HS Multiple Vitamin (Multivitamin), 1 TABLET PO DAILY Omeprazole (Prilosec), 20 MG PO QAM Oxcarbazepine (Trileptal), 600 MG PO BID Probiotic Product (Probiotic), 1 CAP PO DAILY Pumpkin Seed-Soy Germ (Azo Bladder Control/Go-Le), 1 CAP PO DAILY Ranitidine HCl (Ranitidine HCl), 150 MG PO BID Rifaximin (Xifaxan), 550 MG PO BID Topiramate (Topamax ), 25 MG PO QAM Topiramate (Topamax), 50 MG PO QPM Vitamin A ([id number]), 10,000 INTER.UNIT PO DAILY Vitamin E (Vitamin E), 400 UNITS PO DAILY Zinc Gluconate (Zinc), 50 MG PO BID Scheduled PRN Albuterol Hfa (Ventolin Hfa), 2-4 PUFFS INH Q6H PRN for Shortness of Breath Epinephrine (Epipen), 0.3 MG IM UD PRN for ALLERGIC REACTION Glucose-Vitamin C (Glucose), 1 CHW PO UD PRN for Hypoglycemia Meloxicam (Mobic), 7.5 MG PO DAILY PRN for Pain Rizatriptan Benzoate (Rizatriptan Benzoate), 10 MG PO UD PRN for Headache Physical Exam Vital Signs Date Time Temp Pulse Resp B/P (MAP) Pulse Ox O2 Delivery O2 Flow Rate FiO2 09/27/16 06:53 81 09/27/16 06:51 80 16 125/50 98 Room Air 09/27/16 06:45 98 Room Air 09/27/16 04:53 88 09/27/16 04:51 36.6 87 24 196/88 100 Room Air General Appearance: no apparent distress, + obese Head: normocephalic, atraumatic Eyes: PERRL, + pertinent finding (bruising noted to entire right eye and inner corner of left eye ) ENT: hearing grossly normal Neck: supple Respiratory/Chest: lungs clear, no respiratory distress, no accessory muscle use Cardiovascular: regular rate, rhythm Abdomen/GI: normal bowel sounds, non tender, soft Back: + pertinent finding (bruising noted to right shoulder ) Extremities/Musculoskelatal: no calf tenderness, no pedal edema Neurologic/Psych: no motor/sensory deficits, alert, normal mood/affect, oriented x 3 Skin: normal color, warm/dry, no rash Diagnostics Laboratory Results Results Past 24 Hours Test 09/27/16 05:15 Range/Units White Blood Count 4.52 4.8-10.8 K/uL Red Blood Count 2.58 4.2-5.4 M/uL Hemoglobin 9.5 12.0-16.0 g/dL Hematocrit 26.1 37-47 % Mean Corpuscular Volume 101.2 80-100 fL Mean Corpuscular Hemoglobin 36.8 25-34 pg Mean Corpuscular Hemoglobin Concent 36.4 32-36 g/dl Platelet Count 79 130-400 K/uL Mean Platelet Volume 10.1 7.4-10.4 fL Neutrophils (%) (Auto) 75.0 % Lymphocytes (%) (Auto) 14.8 % Monocytes (%) (Auto) 9.1 % Eosinophils (%) (Auto) 0.7 % Basophils (%) (Auto) 0.2 % Neutrophils # (Auto) 3.39 1.4-6.5 K/uL Lymphocytes # (Auto) 0.67 1.2-3.4 K/uL Monocytes # (Auto) 0.41 0.11-0.59 K/uL Eosinophils # (Auto) 0.03 0-0.5 K/uL Basophils # (Auto) 0.01 0-0.2 K/uL RDW Standard Deviation 54.4 36.4-46.3 fL RDW Coefficient of Variation 15.1 11.5-14.5 % Immature Granulocyte % (Auto) 0.2 % Immature Granulocyte # (Auto) 0.01 0.00-0.02 K/uL Large Platelets 1+ Sodium Level 140 136-145 mmol/L Potassium Level 4.0 3.5-5.1 mmol/L Chloride Level 111 98-107 mmol/L Carbon Dioxide Level 21 21-32 mmol/L Anion Gap 8.0 3-11 mmol/L Blood Urea Nitrogen 9 7-18 mg/dl Creatinine 0.46 0.60-1.20 mg/dl Est Creatinine Clear Calc Drug Dose 163.3 ml/min Estimated GFR () 134.4 Estimated GFR (Non- 116.0 BUN/Creatinine Ratio 20.2 10-20 Random Glucose 196 70-99 mg/dl Calcium Level 8.5 8.5-10.1 mg/dl Total Bilirubin 1.5 0.2-1 mg/dl Direct Bilirubin 0.6 0-0.2 mg/dl Aspartate Amino Transf (AST/SGOT) 65 15-37 U/L Alanine Aminotransferase (ALT/SGPT) 41 12-78 U/L Alkaline Phosphatase 215 45-117 U/L Ammonia 86.0 11-32 umol/L Total Protein 5.5 6.4-8.2 gm/dl Albumin 2.9 3.4-5.0 gm/dl Diagnostic Radiology HEAD CT NONCONTRAST CT DOSE: 537.48 mGy.cm HISTORY: Seizures. eval for new trauma TECHNIQUE: Multiaxial CT images of the head were performed without the use of intravenous contrast. Automated exposure control was utilized for this study. Comparison: Head CT 09/19/2016. Findings: The paranasal sinuses and mastoid air cells are clear. The calvarium and skull base are intact. The ventricles and sulci are within normal limits. There is no mass, hematoma, midline shift, or acute infarct. Resolving right frontal scalp hematoma. Impression: No acute intracranial abnormality. Resolving right frontal scalp hematoma. Electronically signed by: Talon Cruz M.D. 09/27/2016 7:16 AM Dictated Date/Time: 09/27/2016 7:14 AM The status of this report is Signed. Draft = Not yet reviewed or approved by Radiologist. Signed = Reviewed and approved by Radiologist. Impression Assessment and Plan 50 y/o female, with PMHx liver cirrhosis, T2DM, hypothyroidism, seizure disorder , migraines, asthma, parkinsonism, bipolar disorder, chronic pancytopenia, and GERD, who presented to the ED because seizures. Seizure disorder: - Admit to tele for cardiac monitoring - Seizure observation/precautions - Continue Keppra 1500 mg BID, Continue Trileptal 600 mg PO BID, Topamax 25 mg QAM and 50 mg HS - Trileptal level pending from 09/26 - Head CT unremarkable for acute intracranial processes - Consult neurology, appreciate recommendations- follows w/ Dr. Gonzalez Liver Cirrhosis: - Chronically elevated ammonia level- 86 at admission- STABLE - Lactulose 30 g BID, Rifaxamin 550 mg BID T2DM- ha1c 4/1% on 09/25: - Continue Toujeo 38 units- non formulary, patient has medications, nursing staff to obtain and send to pharmacy - BSG ACHS w/ sliding insulin scale Hypothyroidism: Synthroid 50 mcg daily Bipolar disorder: Continue Remeron 15 mg HS, Pristiq 50 mg daily Parkinsonism: Sinemet 2 tab TID Pancytopenia, chronic- STABLE: Ferrous Sulfate 325 mg PO daily Asthma: Continue Ventolin and Symbicort h/o migraines: Maxalt 10 mg q2 hrs PRN GERD: Protonix 40 mg daily DVT prophylaxis: MIRYAM/SCDs; hold chemical prophylaxis in setting of thrombocytopenia Code Status: LEVEL I, FULL Dispo: From home, lives w/ - social secretary consulted I personally examined pt and verified all tai points nic Garvey from [facility] [place] this AM asking if we would take care of mrs cobos despite their team being scheduled for next unassigned pt - we agreed that for continuity this makes sense as we know her well. notes that she's been having more seizures, seizure meds adjusted, but still having more. diffuse bruising - relates entirely to seizures (and relates other than seizures she's safe at home). vitals noted nad b/l black eyes, diffuse bruising scattered around body - all appearing to be at about the same stage of healing uncontrolled seizure disorder - admit, neuro consult, continue current home meds for now diffuse bruising - does seem to relate to seizures, continued vigilance but no clear s/s abuse/etc. DVT proph - pharmacologic proph contraindicated due to (chronic) thrombocytopenia Level of Care Telemetry Advanced Directives Existing Living Will: No Existing Power of Director Corporate Communications: No Resuscitation Status FULL RESUSCITATION VTE Prophylaxis VTE Risk Assessment Done? Y/N: Yes Risk Level: Moderate Given or contraindicated: T.E.D. Stockings, SCD's, Contraindicated Additional Copies To Mingo Lin M.D.
[2016-09-27] MEDS ORDERED: NON-FORMULARY MEDICATION (Lecithin 1,200 MG) PO SCH (09:00)
[2016-09-27 10:04] VITALS: O2SAT 99
[2016-09-27 10:31] VITALS: BP 130/71; PULSE 84; TEMP 36.9; O2SAT 97
[2016-09-27] MEDS ORDERED: LEVETIRACETAM 500 MG TAB PO SCH ×2 (11:00→12:30)
[2016-09-27] MEDS: FLUTICASONE PROPIONATE NA SPR 16 GM BTL NAE SCH ×2 (11:59→20:35)
[2016-09-27] MEDS: LACTULOSE SYRUP 20 GM/30 ML UDC PO SCH ×2 (12:00→20:35)
[2016-09-27] MEDS: CARBIDOPA/LEVODOPA 25/100MG EXT REL TAB PO SCH ×3 (12:01→20:36)
[2016-09-27] MEDS: MULTIVITAMIN TAB PO SCH (12:02)
[2016-09-27] MEDS: OXCARBAZEPINE 150 MG TAB PO SCH ×2 (12:03→20:36)
[2016-09-27] MEDS: RANITIDINE HCL 150 MG TAB PO SCH ×2 (12:03→20:36)
[2016-09-27] MEDS: RIFAXIMIN TAB 550 MG TAB PO SCH ×2 (12:04→20:37)
[2016-09-27] MEDS: TOPIRAMATE 25 MG TAB PO SCH (12:04)
[2016-09-27] MEDS: PANTOprazole SOD 40 MG TAB PO SCH (12:05)
[2016-09-27] MEDS: LEVOTHYROXINE 50 MCG TAB PO SCH (12:05)
[2016-09-27] MEDS: MAGNESIUM OXIDE 400 MG TAB PO SCH ×3 (12:05→20:36)
[2016-09-27] MEDS: INSULIN ASPART 100 UNITS/ML 3 ML PEN SC SCH ×3 (12:09→20:47)
--- NOTE | 2016-09-27 12:09 | Neurology Consultation ---
Neurology Consultation Date of Consultation: Sep 27, 2016. Attending Physician: Eagle Crocker D.O. Primary Care Physician: Mingo Lin M.D. Reason for Consultation: Consult for seizures History of Present Illness Source: patient, clinic records, hospital records This is a 50-year-old female who presents with complaints of breakthrough seizures. She reports having a breakthrough seizure a few weeks ago and then 2 breakthrough seizures last night. Initially when she saw Dr. Gonzalez in neurology clinic earlier this month she hadn't had a seizure in a couple years, so he had decreased her Trileptal. When she had a breakthrough seizure couple weeks ago, he increased it back to the previous dose of 600 mg twice a day. This occurred on the . The patient then reports having 2 seizures last night. She reports that she doesn't have any warning. She reports that she just wakes up confused metastases how she knows she had a seizure. Her description of her current seizures is fairly poor. She reports that she had some sort of EEG monitoring in [place] for one week approximately in 2007. She reports that the captured 5 seizures. Patient was recently started on Pristiq. There has been some concern on whether this could have contributed to her increased frequency of seizures, but at the same time the patient reports that her moods are much better on this medication. Upon extensive review of records, it appears that the patient also saw [facility] neurology in [place] in 2014. At that time they did an EEG that captured generalized 3 Hz spike and wave discharges and focal left and right paracentral epileptiform discharges. At that time in 2014 I started the patient on Trileptal. 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 There has also been concerned about possible psychogenic nonepileptic events/pseudoseizures, but it does not appear that any of these suspected pseudoseizures observed and captured on EEG. Development mental history: Patient was adopted at a very young age. There has been history of head injuries and possibly a skull fracture. She reports taking special education classes in high school. Past therapeutic trials: Patient has been on VNS back when she had an evaluation at [facility]. By 2014 Hz VNS was turned off presumably because she did not feel like it was helping. Patient has been on Topamax with past concerns of possibly contributing to her liver dysfunction Dilantin Gabapentin Tegretol Lamictal with uncertain results Depakote was reported to work in the past, but caused issues with increased LFTs Zonegran appears to have been briefly tried. Patient reports about all the medication she is tried she feels like Keppra and Trileptal has helped the past. She denies any major side effects. No mood side effects from Her reported. In terms of seizure types, the patient reports that when she was a baby and young child she had staring seizures. These reportedly stopped when she was in her 20s. Reportedly her first generalized tonic-clonic seizure was when she was 14 years old. She reported that when she was young she would have seizures in which she would get a warning of an odd smell or taste. She reports that more recently she has no warning before her seizures. In past neurology notes there has been descriptions of what is believed to be possibly generalized seizures and also multifocal jerking. Past Medical/Surgical History Medical Problems: (1) Acute bronchitis Status: Acute (2) Alkaline phosphatase elevation Status: Acute (3) Back pain Status: Acute (4) Bradycardia Status: Acute (5) Breakthrough seizure Status: Acute (6) Burn Status: Acute (7) Change in mental status Status: Acute (8) Change in mental status Status: Acute (9) Chronic low back pain Status: Acute (10) Closed head injury Status: Acute (11) Dehydration Status: Acute (12) Dizziness Status: Acute (13) Facial laceration Status: Acute (14) Fall Status: Acute (15) Fall Status: Acute (16) Fatigue Status: Acute (17) Hemorrhoid Status: Acute (18) Hepatic encephalopathy Status: Acute (19) Hepatic encephalopathy Status: Acute (20) Hepatic encephalopathy Status: Acute (21) Hepatic encephalopathy Status: Acute (22) Hepatic encephalopathy Status: Acute (23) Hepatic encephalopathy Status: Acute (24) Hepatic encephalopathy Status: Acute (25) Hepatic encephalopathy Status: Acute (26) Hyperammonemia Status: Acute (27) Hyperammonemia Status: Acute (28) Hyperammonemia Status: Acute (29) Hyperammonemia Status: Acute (30) Hypocalcemia Status: Acute (31) Hypomagnesemia Status: Acute (32) Increased ammonia level Status: Acute (33) Left foot pain Status: Acute (34) Leukopenia Status: Acute (35) Low back pain Status: Acute (36) Pain in pelvis Status: Acute (37) Pancytopenia Status: Acute (38) Right ear pain Status: Acute (39) Right groin pain Status: Acute (40) Right hip pain Status: Acute (41) RUQ abdominal pain Status: Acute (42) Seizure Status: Acute (43) Weakness Status: Acute (44) Weakness Status: Acute (45) Weakness Status: Acute (46) Weakness Status: Acute Nonalcoholic liver cirrhosis Diabetes type 2 Hypothyroidism 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 No reported drug use. Smoking Status: Never smoker Drug Use: none Marital Status: Housing Status: lives with significant other Occupation Status: disabled Allergies Coded Allergies: Amoxicillin (Verified Allergy, Intermediate, HIVES, 08/13/16) Azithromycin (Verified Allergy, Intermediate, HIVES, 08/13/16) Baclofen (Verified Allergy, Intermediate, RASH, 08/13/16) Butalbital (Verified Allergy, Intermediate, HIVES, 08/13/16) Clarithromycin (Verified Allergy, Intermediate, RASH, 08/13/16) Dicyclomine (Verified Allergy, Intermediate, HIVES, 08/13/16) HIVES Penicillins (Verified Allergy, Intermediate, RASH, 08/13/16) PT STATES SHE GETS WELTS FROM CIPRO,LEVAQUIN ALLERGY PER DR ROBLES Tetracyclines (Verified Allergy, Intermediate, DOXYCYCLINE-HIVES, 08/13/16) Sulindac (Verified Allergy, Mild, ALLERGY LISTED "CLONDORAL"--HIVES, ) Adhesives (Verified Allergy, Unknown, RASH, DUODERM=RED,ITCHY, 08/13/16) PLASTIC TAPE IS OK!!! DUODERM=RED,ITCHY Metronidazole (Verified Allergy, Unknown, SEIZURE, 08/13/16) Tramadol (Verified Allergy, Unknown, SEIZURES, 08/13/16) Metoclopramide (Verified Adverse Reaction, Severe, SEIZURES, 08/13/16) Furosemide (Verified Adverse Reaction, Unknown, HIVES, 08/13/16) Uncoded Allergies: BLUEBERRIES (Allergy, Unknown, STOMACH PAIN, 05/22/16) ORANGE PULP (Allergy, Unknown, MIGRAINES, 05/22/16) Current Inpatient Medications Current Inpatient Medications Medications (Trade) Dose Ordered Sig/Danita Route Start Time Stop Time Status Last Admin Dose Admin Al Hydrox/Mg Hydrox/Simethicone (Maalox Max Susp) 15 ml Q4H PRN PO 09/27/16 08:00 10/27/16 07:59 Magnesium Hydroxide (Milk Of Magnesia Susp) 30 ml Q12H PRN PO 09/27/16 08:00 10/27/16 07:59 Ondansetron HCl (Zofran Inj) 4 mg Q6H PRN IV 09/27/16 08:00 10/27/16 07:59 Nitroglycerin (Nitrostat Tab) 0.4 mg UD PRN SL 09/27/16 08:00 10/27/16 07:59 Polyethylene (Miralax Powder Packet) 17 gm DAILY PRN PO 09/27/16 08:00 10/27/16 07:59 Albuterol (Ventolin Hfa Inhaler) 2 puffs Q6H PRN INH 09/27/16 08:00 10/27/16 07:59 Budesonide/ Formoterol Fumarate (Symbicort 160/ 4.5 Inh) 2 puffs BID INH 09/27/16 21:00 10/27/16 20:59 Ferrous Sulfate (Feosol Tab) 325 mg QPM PO 09/27/16 21:00 10/27/16 20:59 Fluticasone Propionate (Flonase Nasal [place]) 1 sprays BID ABRAHAN 09/27/16 11:00 10/27/16 10:59 Lactulose (Chronulac Syrup) 20 gm BID PO 09/27/16 11:00 10/27/16 10:59 Carbidopa/Levodopa (Sinemet Cr 25/ 100MG Tab) 2 tab TID PO 09/27/16 14:00 10/27/16 13:59 Levothyroxine Sodium (Synthroid Tab) 50 mcg DAILYBB PO 09/27/16 11:00 10/27/16 10:59 Magnesium Oxide (Mag-Ox Tab) 400 mg TID PO 09/27/16 11:00 10/27/16 10:59 Meloxicam (Mobic Tab) 7.5 mg DAILY PRN PO 09/27/16 08:00 10/27/16 07:59 Mirtazapine (Remeron Tab) 15 mg HS PO 09/27/16 21:00 10/27/16 20:59 Multivitamins (Multivitamin Tab) 1 tab DAILY PO 09/28/16 09:00 10/28/16 08:59 Oxcarbazepine (Trileptal Tab) 600 mg BID PO 09/27/16 11:00 10/27/16 10:59 Ranitidine HCl (zANTac TAB) 150 mg BID PO 09/27/16 11:00 10/27/16 10:59 Rifaximin (Xifaxan Tab) 550 mg BID PO 09/27/16 11:00 10/27/16 10:59 Topiramate (Topamax Tab) 25 mg QAM PO 09/27/16 11:00 10/27/16 10:59 Topiramate (Topamax Tab) 50 mg QPM PO 09/27/16 21:00 10/27/16 20:59 Miscellaneous Information (Order Awaiting Action) 1 ea QS N/A 09/27/16 11:15 10/27/16 11:14 Insulin Glargine (Toujeo Solostar) 38 units QAM SC 09/27/16 09:00 10/27/16 08:59 UNV Levetiracetam (Keppra Tab) 1,500 mg BID PO 09/27/16 11:00 10/27/16 10:59 Rizatriptan Benzoate (Maxalt Tab) 10 mg UD PRN PO 09/27/16 08:00 10/27/16 07:59 Pantoprazole Sodium (Protonix Tab) 40 mg QAM PO 09/27/16 11:00 10/27/16 10:59 Ibuprofen (Advil Tab) 400 mg TID PRN PO 09/27/16 08:00 10/27/16 07:59 Insulin Aspart (novoLOG ASPART) SLIDING SCALE G... ACHS SC 09/27/16 11:00 10/27/16 10:59 Review of Systems Complete review systems otherwise negative except for the above noted in history of present illness Physical Exam Vital Signs (Past 24 Hrs): Date Time Temp Pulse Resp B/P (MAP) Pulse Ox O2 Delivery O2 Flow Rate FiO2 09/27/16 10:31 36.9 84 18 130/71 (90) 97 Room Air 09/27/16 10:04 88 16 129/56 99 Room Air 09/27/16 09:19 89 16 100 09/27/16 09:00 91 18 135/62 99 Room Air 09/27/16 06:53 81 09/27/16 06:51 80 16 125/50 98 Room Air 09/27/16 06:45 98 Room Air 09/27/16 04:53 88 09/27/16 04:51 36.6 87 24 196/88 100 Room Air Gen.: Patient is alert and oriented in no acute distress lying in bed Heart: Regular rate and rhythm Extremities: No gross deformities or rashes noted Neurological examination: Mental status: Patient is alert and oriented to person place and time. Able to give his own history. Attention concentration normal for the situation. Speech is fluent without any dysarthria or aphasia noted Cranial nerves: Funduscopic examination was difficult to visualize. Pupils equally round and reactive to light. Extraocular muscles intact without nystagmus. No facial asymmetry noted. Facial sensation intact. Tongue midline. Good palatal elevation. Good shoulder shrug bilaterally. Hearing grossly intact voice. Strength: 5/5 both proximal and distal in all extremities .Tone is normal. Sensation: Grossly intact to light touch in all extremities Deep tendon reflexes: +2 in bilateral biceps and patellar. Toes are downgoing to plantar stimulation bilaterally Coordination: Patient has good finger to nose without dysmetria. Mild to moderate action tremors Station within the bed is normal. Laboratory Results Past 24 Hours: 09/27/16 05:15 Red Blood Count 2.58, Mean Corpuscular Volume 101.2, Mean Corpuscular Hemoglobin 36.8, Mean Corpuscular Hemoglobin Concent 36.4, Mean Platelet Volume 10.1, Neutrophils (%) (Auto) 75.0, Lymphocytes (%) (Auto) 14.8, Monocytes (%) ( Auto) 9.1, Eosinophils (%) (Auto) 0.7, Basophils (%) (Auto) 0.2, Neutrophils # ( Auto) 3.39, Lymphocytes # (Auto) 0.67, Monocytes # (Auto) 0.41, Eosinophils # ( Auto) 0.03, Basophils # (Auto) 0.01 09/27/16 05:15 Test 6/30/17 05:15 White Blood Count 4.52 K/uL (4.8-10.8) Red Blood Count 2.58 M/uL (4.2-5.4) Hemoglobin 9.5 g/dL (12.0-16.0) Hematocrit 26.1 % (37-47) Mean Corpuscular Volume 101.2 fL (80-100) Mean Corpuscular Hemoglobin 36.8 pg (25-34) Mean Corpuscular Hemoglobin Concent 36.4 g/dl (32-36) Platelet Count 79 K/uL (130-400) Mean Platelet Volume 10.1 fL (7.4-10.4) Neutrophils (%) (Auto) 75.0 % Lymphocytes (%) (Auto) 14.8 % Monocytes (%) (Auto) 9.1 % Eosinophils (%) (Auto) 0.7 % Basophils (%) (Auto) 0.2 % Neutrophils # (Auto) 3.39 K/uL (1.4-6.5) Lymphocytes # (Auto) 0.67 K/uL (1.2-3.4) Monocytes # (Auto) 0.41 K/uL (0.11-0.59) Eosinophils # (Auto) 0.03 K/uL (0-0.5) Basophils # (Auto) 0.01 K/uL (0-0.2) RDW Standard Deviation 54.4 fL (36.4-46.3) RDW Coefficient of Variation 15.1 % (11.5-14.5) Immature Granulocyte % (Auto) 0.2 % Immature Granulocyte # (Auto) 0.01 K/uL (0.00-0.02) Large Platelets 1+ Anion Gap 8.0 mmol/L (3-11) Est Creatinine Clear Calc Drug Dose 163.3 ml/min Estimated GFR () 134.4 Estimated GFR (Non- 116.0 BUN/Creatinine Ratio 20.2 (10-20) Calcium Level 8.5 mg/dl (8.5-10.1) Total Bilirubin 1.5 mg/dl (0.2-1) Direct Bilirubin 0.6 mg/dl (0-0.2) Aspartate Amino Transf (AST/SGOT) 65 U/L (15-37) Alanine Aminotransferase (ALT/SGPT) 41 U/L (12-78) Alkaline Phosphatase 215 U/L (45-117) Ammonia 86.0 umol/L (11-32) Total Protein 5.5 gm/dl (6.4-8.2) Albumin 2.9 gm/dl (3.4-5.0) Impression 50-year-old female with a history of presumed generalized epilepsy (labeling of CHARLEEN subtype has been given, but typically CHARLEEN is made worse by carbamazepine/ oxcarbazepine which makes me question if this is the correct diagnosis since the patient reports improvement with Trileptal). Recent uncontrolled breakthrough seizures. No reported medication side effects. There has been a concern for possible nonepileptic events in the past. Plan Increase Keppra to 2000 mg twice a day Follow-up EEG as requested as an outpatient Continue Trileptal without change. Trileptal level is pending May observe patient today to make sure she has no further seizures. Follow-up with Dr. Gonzalez in neurology clinic within the next month In the future if she continues to have uncontrolled seizures, would consider an ambulatory EEG for further evaluation and possibly spell capture. Could consider sending her back to an epilepsy monitoring unit to determine whether her newer spells are seizures versus nonepileptic events. If the patient truly has what looks like to be a CHARLEEN variant on EEG, could consider a retrial of Lamictal (and taper off Trileptal) as I am uncertain what the results were in the past with Lamictal. Otherwise if needed could consider Vimpat, Fycompa, or Briviact. Could consider turning the VNS back on. Could also consider switching from Trileptal to Aptiom. Thank you for letting me participate in this patient's care. If there is any questions or concerns, feel free to call/page me Over 90 minutes were spent on the floor coordinating care, obtaining history, reviewing records, and examining the patient.
[2016-09-27 12:56] LABS: MANUAL MICROSCOPIC REQUIRED? NO; REVIEW REQ? NO; URINE APPEARANCE CLEAR (CLEAR); URINE BILIRUBIN NEG (NEG); URINE COLOR DK YELLOW; URINE EPITHELIAL CELL AUTO 0-5 /lpf (0-5); URINE NITRITE NEG (NEG); URINE PH 6.5 (4.5-7.5); URINE SPECIFIC GRAVITY 1.027 (1.000-1.030); UROBILINOGEN NEG (NEG); ZZUR CULT IF INDIC CLEAN CATCH NO
[2016-09-27] MEDS: INSULIN GLARGINE 300 UNITS/ML INJ SC SCH (13:10)
[2016-09-27 16:01] VITALS: BP 152/84; PULSE 77; TEMP 37; O2SAT 100
[2016-09-27 19:21] VITALS: BP 154/72; PULSE 85; TEMP 37; O2SAT 97
[2016-09-27] MEDS: BUDESONIDE/FORMOTEROL FUMARATE 160/4.5 60 PUFFS/INHALER INH SCH (20:35)
[2016-09-27] MEDS: LEVETIRACETAM 1000 MG PO SCH (20:37)
[2016-09-27] MEDS ORDERED: TOPIRAMATE 25 MG TAB PO SCH (21:00)
[2016-09-27] MEDS ORDERED: FERROUS SULFATE 325 MG TAB PO SCH (21:00)
[2016-09-27] MEDS ORDERED: MIRTAZAPINE TAB 15 MG TAB PO SCH (21:00)
[2016-09-27 23:28] VITALS: BP 148/75; PULSE 75; TEMP 36.8; O2SAT 100
[2016-09-28 02:54] VITALS: BP 138/74; PULSE 78; TEMP 36.9; O2SAT 96
[2016-09-28] MEDS: LEVOTHYROXINE 50 MCG TAB PO SCH (05:58)
[2016-09-28 06:09] LABS: HEMATOCRIT 25.8 % (37-47); MEAN CELL VOLUME 100.4 fL (80-100); MEAN CORPUSCULAR HEMOGLOBIN 36.6 pg (25-34); MEAN CORPUSCULAR HGB CONC 36.4 g/dl (32-36); RED BLOOD COUNT 2.57 M/uL (4.2-5.4); WHITE BLOOD COUNT 5.43 K/uL (4.8-10.8)
[2016-09-28 06:27] LABS: MEAN PLATELET VOLUME 9.8 fL (7.4-10.4); PLATELET COUNT 97 K/uL (130-400)
[2016-09-28 06:40] LABS: BUN/CREATININE RATIO 16.7 (10-20); CALCIUM 7.8 mg/dl (8.5-10.1); CREATININE 0.45 mg/dl (0.60-1.20); MAGNESIUM 1.7 mg/dl (1.8-2.4); POTASSIUM 3.8 mmol/L (3.5-5.1)
[2016-09-28 07:20] VITALS: BP 148/83; PULSE 81; TEMP 37.1; O2SAT 93
[2016-09-28] MEDS: FLUTICASONE PROPIONATE NA SPR 16 GM BTL NAE SCH (08:02)
[2016-09-28] MEDS: TOPIRAMATE 25 MG TAB PO SCH (08:03)
[2016-09-28] MEDS: LACTULOSE SYRUP 20 GM/30 ML UDC PO SCH (08:03)
[2016-09-28] MEDS: PANTOprazole SOD 40 MG TAB PO SCH (08:03)
[2016-09-28] MEDS: MULTIVITAMIN TAB PO SCH (08:03)
[2016-09-28] MEDS: RIFAXIMIN TAB 550 MG TAB PO SCH (08:03)
[2016-09-28] MEDS: LEVETIRACETAM 1000 MG PO SCH (08:03)
[2016-09-28] MEDS: RANITIDINE HCL 150 MG TAB PO SCH (08:03)
[2016-09-28] MEDS: CARBIDOPA/LEVODOPA 25/100MG EXT REL TAB PO SCH ×2 (08:03→13:55)
[2016-09-28] MEDS: OXCARBAZEPINE 150 MG TAB PO SCH (08:03)
[2016-09-28] MEDS: BUDESONIDE/FORMOTEROL FUMARATE 160/4.5 60 PUFFS/INHALER INH SCH (08:05)
[2016-09-28] MEDS: INSULIN GLARGINE 300 UNITS/ML INJ SC SCH (08:10)
[2016-09-28] MEDS: INSULIN ASPART 100 UNITS/ML 3 ML PEN SC SCH ×2 (08:10→12:40)
[2016-09-28] MEDS ORDERED: MAGNESIUM OXIDE 400 MG TAB PO SCH (09:00)
[2016-09-28] MEDS ORDERED: DESVENLAFAXINE SUCCINATE 50 MG TABCR PO SCH (09:00)
[2016-09-28] MEDS ORDERED: Levetiracetam PO ×2 (09:59)
--- NOTE | 2016-09-28 10:01 | Discharge Instructions ---
Discharge Instructions Date of Service Sep 28, 2016. Admission Reason for Admission: Seizure Discharge Discharge Diagnosis / Problem: seizure Discharge Goals Goal(s): Improve disease control Activity Recommendations Activity Limitations: resume your previous activity . Instructions / Follow-Up Instructions / Follow-Up seizures: -Dr Anderson increased your keppra to 2000mg twice a day; we've asked to get you scheduled with [facility] Neurology for this coming week to continue to stay on top of the seizures Current Hospital Diet Patient's current hospital diet: Diabetes Type 2 Diet Discharge Diet Recommended Diet: Diabetes Type 2 Diet Pending Studies Studies pending at discharge: no Laboratory Results Hemoglobin A1c Test 09/25/16 08:18 Range/Units Estimated Average Glucose 71 mg/dl Hemoglobin A1c 4.1 L 4.5-5.6 % Lipid Panel Test 09/25/16 08:18 Range/Units Triglycerides Level 46 0-150 mg/dl Cholesterol Level 126 0-200 mg/dl HDL Cholesterol 72 mg/dl Cholesterol/HDL Ratio 1.8 LDL Cholesterol, Calculated 45 mg/dl Medical Emergencies . Who to Call and When: Medical Emergencies: If at any time you feel your situation is an emergency, please call 911 immediately. . Non-Emergent Contact Non-Emergency issues call your: Primary Care Provider, Neurologist . . "Provider Documentation" section prepared by Eagle Crocker. . VTE Core Measure Inpt VTE Proph given/why not?: T.E.D. Stockings, SCD's, Contraindicated ( pharmacologic contraindicated due to low platelets)
[2016-09-28 10:09] VITALS: BP 148/83; PULSE 81; TEMP 37.1; O2SAT 93
--- NOTE | 2016-09-28 12:18 | Neurology Progress Notes ---
Neurology Progress Note Date of Service Sep 28, 2016. Subjective Patient denies any seizures and she is been in the hospital. Reports that she is a little bit tired today but otherwise no medication side effects from increasing Keppra. No new neurological complaints. Trileptal level was 23 Objective Date Time Temp Pulse Resp B/P (MAP) Pulse Ox O2 Delivery O2 Flow Rate FiO2 09/28/16 10:09 37.1 81 18 93 Room Air 09/28/16 07:45 Room Air 09/28/16 07:20 37.1 81 18 148/83 (104) 93 Room Air 09/28/16 04:00 Room Air 09/28/16 02:54 36.9 78 20 138/74 (95) 96 Room Air 09/28/16 00:00 Room Air 09/27/16 23:28 36.8 75 18 148/75 (99) 100 Room Air 09/27/16 20:09 Room Air 09/27/16 19:21 37.0 85 20 154/72 (99) 97 Room Air 09/27/16 16:01 37.0 77 18 152/84 (106) 100 Room Air 09/27/16 16:00 Room Air Last 24 Hours Test 09/27/16 12:45 09/27/16 16:27 09/27/16 20:24 09/28/16 05:25 Urine Color DK YELLOW Urine Appearance CLEAR Urine pH 6.5 Urine Specific [place] 1.027 Urine Protein NEG Urine Glucose (UA) 2+ Urine Ketones NEG Urine Occult Blood NEG Urine Nitrite NEG Urine Bilirubin NEG Urine Urobilinogen NEG Urine Leukocyte Esterase NEG Urine WBC (Auto) 1-5 /hpf Urine RBC (Auto) 0-4 /hpf Urine Hyaline Casts (Auto) 1-5 /lpf Urine Epithelial Cells (Auto) 0-5 /lpf Urine Bacteria (Auto) NEG Bedside Glucose 217 mg/dl 232 mg/dl White Blood Count 5.43 K/uL Red Blood Count 2.57 M/uL Hemoglobin 9.4 g/dL Hematocrit 25.8 % Mean Corpuscular Volume 100.4 fL Mean Corpuscular Hemoglobin 36.6 pg Mean Corpuscular Hemoglobin Concent 36.4 g/dl RDW Standard Deviation 54.8 fL RDW Coefficient of Variation 15.4 % Platelet Count 97 K/uL Mean Platelet Volume 9.8 fL Sodium Level 133 mmol/L Potassium Level 3.8 mmol/L Chloride Level 102 mmol/L Carbon Dioxide Level 24 mmol/L Anion Gap 7.0 mmol/L Blood Urea Nitrogen 8 mg/dl Creatinine 0.45 mg/dl Est Creatinine Clear Calc Drug Dose 167.0 ml/min Estimated GFR () 135.4 Estimated GFR (Non- 116.8 BUN/Creatinine Ratio 16.7 Random Glucose 189 mg/dl Calcium Level 7.8 mg/dl Magnesium Level 1.7 mg/dl Test 09/28/16 07:17 09/28/16 11:19 Bedside Glucose 203 mg/dl 246 mg/dl Exam: Gen.: Patient appears tired but oriented in no acute distress lying in bed HEENT: Bruising of her face Neurological examination: Mental status: Patient is alert and oriented to person place and time. Able to give his own history. Attention concentration normal for the situation. Speech is fluent without any dysarthria or aphasia noted Cranial nerves: No facial asymmetry noted. Hearing grossly intact voice. Strength: Moving all extremities equally Station within the bed is normal. Current Inpatient Medications Medications (Trade) Dose Ordered Sig/Danita Route Start Time Stop Time Status Last Admin Dose Admin Al Hydrox/Mg Hydrox/Simethicone (Maalox Max Susp) 15 ml Q4H PRN PO 09/27/16 08:00 10/27/16 07:59 Magnesium Hydroxide (Milk Of Magnesia Susp) 30 ml Q12H PRN PO 09/27/16 08:00 10/27/16 07:59 Ondansetron HCl (Zofran Inj) 4 mg Q6H PRN IV 09/27/16 08:00 10/27/16 07:59 Nitroglycerin (Nitrostat Tab) 0.4 mg UD PRN SL 09/27/16 08:00 10/27/16 07:59 Polyethylene (Miralax Powder Packet) 17 gm DAILY PRN PO 09/27/16 08:00 10/27/16 07:59 Albuterol (Ventolin Hfa Inhaler) 2 puffs Q6H PRN INH 09/27/16 08:00 10/27/16 07:59 Budesonide/ Formoterol Fumarate (Symbicort 160/ 4.5 Inh) 2 puffs BID INH 09/27/16 21:00 10/27/16 20:59 09/27/16 20:35 2 PUFFS Ferrous Sulfate (Feosol Tab) 325 mg QPM PO 09/27/16 21:00 10/27/16 20:59 09/27/16 20:36 325 MG Fluticasone Propionate (Flonase Nasal [place]) 1 sprays BID ABRAHAN 09/27/16 11:00 10/27/16 10:59 09/28/16 08:02 1 SPRAYS Lactulose (Chronulac Syrup) 20 gm BID PO 09/27/16 11:00 10/27/16 10:59 09/28/16 08:03 20 GM Carbidopa/Levodopa (Sinemet Cr 25/ 100MG Tab) 2 tab TID PO 09/27/16 14:00 10/27/16 13:59 09/28/16 08:03 2 TAB Levothyroxine Sodium (Synthroid Tab) 50 mcg DAILYBB PO 09/27/16 11:00 10/27/16 10:59 09/28/16 05:58 50 MCG Meloxicam (Mobic Tab) 7.5 mg DAILY PRN PO 09/27/16 08:00 10/27/16 07:59 Mirtazapine (Remeron Tab) 15 mg HS PO 09/27/16 21:00 10/27/16 20:59 09/27/16 20:35 15 MG Multivitamins (Multivitamin Tab) 1 tab DAILY PO 09/28/16 09:00 10/28/16 08:59 09/28/16 08:03 1 TAB Oxcarbazepine (Trileptal Tab) 600 mg BID PO 09/27/16 11:00 10/27/16 10:59 09/28/16 08:03 600 MG Ranitidine HCl (zANTac TAB) 150 mg BID PO 09/27/16 11:00 10/27/16 10:59 09/28/16 08:03 150 MG Rifaximin (Xifaxan Tab) 550 mg BID PO 09/27/16 11:00 10/27/16 10:59 09/28/16 08:03 550 MG Topiramate (Topamax Tab) 25 mg QAM PO 09/27/16 11:00 10/27/16 10:59 09/28/16 08:03 25 MG Topiramate (Topamax Tab) 50 mg QPM PO 09/27/16 21:00 10/27/16 20:59 09/27/16 20:36 50 MG Insulin Glargine (Toujeo Solostar) 38 units QAM SC 09/27/16 13:00 10/27/16 12:59 09/28/16 08:10 38 UNITS Rizatriptan Benzoate (Maxalt Tab) 10 mg UD PRN PO 09/27/16 08:00 10/27/16 07:59 Pantoprazole Sodium (Protonix Tab) 40 mg QAM PO 09/27/16 11:00 10/27/16 10:59 09/28/16 08:03 40 MG Ibuprofen (Advil Tab) 400 mg TID PRN PO 09/27/16 08:00 10/27/16 07:59 Insulin Aspart (novoLOG ASPART) SLIDING SCALE G... ACHS SC 09/27/16 11:00 10/27/16 10:59 09/28/16 08:10 7 UNITS Desvenlafaxine Succinate (Pristiq) 50 mg DAILY PO 09/28/16 09:00 10/28/16 08:59 09/28/16 08:03 50 MG Levetiracetam (Keppra) 2,000 mg BID PO 09/27/16 21:00 10/27/16 20:59 09/28/16 08:03 2,000 MG Heparin Sodium (Porcine) (Heparin 100 Unit/ml 5ml Flush) 5 ml PRN PRN IV 09/28/16 00:45 10/28/16 00:44 09/28/16 05:20 5 ML Magnesium Oxide (Mag-Ox Tab) 400 mg BID PO 09/28/16 09:00 10/28/16 08:59 09/28/16 08:03 400 MG Impression 50-year-old female with a history of presumed generalized epilepsy (labeling of CHARLEEN subtype has been given in the past, but typically CHARLEEN is made worse by carbamazepine/oxcarbazepine which makes me question if this is the correct diagnosis since the patient reports improvement with Trileptal). Recent uncontrolled breakthrough seizures. No reported medication side effects. There has been a concern for possible nonepileptic events in the past. Appears to be tolerating higher dose of Keppra well. Plan Continued increased dose of Keppra 2000 mg twice a day EEG was not done as an inpatient and so will have to be followed up as an outpatient. Continue Trileptal without change. Follow-up with Dr. Gonzalez in neurology clinic within the next month In the future if she continues to have uncontrolled seizures, would consider an ambulatory EEG for further evaluation and possibly spell capture. Could consider sending her back to an epilepsy monitoring unit to determine whether her newer spells are seizures versus nonepileptic events. If the patient truly has what looks like to be a CHARLEEN variant on EEG, could consider a retrial of Lamictal (and taper off Trileptal) as I am uncertain what the results were in the past with Lamictal. Otherwise if needed could consider Vimpat, Fycompa, or Briviact. Could consider turning the VNS back on. Could also consider switching from Trileptal to Aptiom. Thank you for letting me participate in this patient's care. If there is any questions or concerns, feel free to call/page me
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
[2016-10-14] MEDS ORDERED: CARB25TA16 PO ×2 (10:30)
[2016-10-24] MEDS ORDERED: INSU1.2I SQ (12:57)
[2016-10-24] MEDS ORDERED: KETO10TA PO (12:57)
[2016-10-24] MEDS ORDERED: LACT10SO17 PO (12:57)
[2016-10-24] MEDS ORDERED: LACO50TA PO (12:57)
[2016-12-25] MEDS ORDERED: KFL500 PO (16:53)
[2016-12-25] MEDS ORDERED: BUME1TAB PO (16:53)
[2016-12-26] MEDS ORDERED: CIPR-255 PO (10:04)
[2017-01-01] MEDS ORDERED: OXYC1TAB3 PO (07:45)
[2017-01-01] MEDS ORDERED: [UNRECOGNIZED DRUG - CODE] PO (07:45)
== END 2016-09-28 16:30 | disposition home or self-care (01) | DRG 101 ==
LOC: EDBD 04:48 → C.EDB 04:49 → EDBEDREQ 08:16 → ENRESERV 08:50 → C.MED 10:14
PROVIDERS: ADMIT Family Medicine; ATTEND Family Medicine
DX: G40.909 Epilepsy, unspecified, not intractable, without status epilepticus (principal); D61.818 Other pancytopenia; E11.9 Type 2 diabetes mellitus without complications; E03.9 Hypothyroidism, unspecified; G20 Parkinson's disease; F31.9 Bipolar disorder, unspecified; K21.9 Gastro-esophageal reflux disease without esophagitis; K74.60 Unspecified cirrhosis of liver; J45.909 Unspecified asthma, uncomplicated; Z79.4 Long term (current) use of insulin; Z79.899 Other long term (current) drug therapy

== ENCOUNTER → 2016-09-30 | Outpatient (CLI) | payer BC, OTHER ==
[~2016-09-30] MED LIST changes: +ACET-1047 PO; +BUME1TAB PO; +CARB25TA14 PO; +CARB25TA16 PO; +CIPR-255 PO; -CRAN1CAP15 PO; +CRAN1TAB6 PO; -IPRASOL4 INH; +KETO10TA PO; +KFL500 PO; +LACO50TA PO; +LCTL30 PO; +LDDP5 TD; +LUTE15CA PO; +Levetiracetam PO; +MIRT30TA2 PO; +MTR/400 PO; +MULT-506 PO; +NAPR-998 PO; +ONDA4TAB10 SL; -OXCA300T PO; +OXYC1TAB3 PO; +PROM12.57 PO; +RMR15 PO; +SPIR25TA PO; +SUMA100T16 PO; -TOPI25CA2 PO; -TRAZ1TAB52 PO; +TRIA1SPR4 NAE; +VITA80004 PO; +[UNRECOGNIZED DRUG - CODE] PO; +[UNRECOGNIZED DRUG - CODE] PO
--- NOTE | 2016-10-03 16:41 | EEG Procedure Note ---
EEG Procedure Note Date of Service Sep 30, 2016. Start / End Times Start Time: 1:35 PM End Time: 1:56 PM Referring Physician Jorden Gonzalez History This is a 50-year-old female with seizure-like activity. Last episode was . EEG for further evaluation of seizure activity and etiology. Home Medication List Scheduled Ascorbic Acid (Vitamin C), 1,000 MG PO QAM Budesonide/Formoterol Fumarate (Symbicort 160/4.5 Inhaler ), 2 PUFFS INH BID Caffeine-Magnesium Salicylate (Diurex 50-162.5 mg), 1 TAB PO QAM Cholecalciferol (Vitamin D), 2,000 UNITS PO DAILY Cranberry (Vaccinium Macrocarp (Cranberry), 1 TAB PO TID Desvenlafaxine Succinate (Pristiq), 50 MG PO QAM Ferrous Sulfate (Ferrous Sulfate), 325 MG PO QPM Fluticasone Propionate (Fluticasone Propionate), 1-2 SPRAYS ABRAHAN BID Insulin Glargine (Toujeo Solostar), 38 UNITS SQ QAM Insulin Lispro (Human) (Humalog Kwikpen), UNITS SC UD Lactulose (Chronulac), 30 ML PO BID Lecithin (Lecithin), 1,200 MG PO DAILY Levodopa/Carbidopa (Sinemet Cr 25MG/100MG), 2 TAB PO TID Levothyroxine Sodium (Levothyroxine Sodium), 75 MCG PO QAM Lutein (Lutein), 20 MG PO DAILY Magnesium Oxide (Mag-Ox), 400 MG PO TID Mirtazapine (Remeron), 15 MG PO HS Multiple Vitamin (Multivitamin), 1 TABLET PO DAILY Omeprazole (Prilosec), 20 MG PO QAM Oxcarbazepine (Trileptal), 600 MG PO BID Probiotic Product (Probiotic), 1 CAP PO DAILY Pumpkin Seed-Soy Germ (Azo Bladder Control/Go-Le), 1 CAP PO DAILY Ranitidine HCl (Ranitidine HCl), 150 MG PO BID Rifaximin (Xifaxan), 550 MG PO BID Topiramate (Topamax ), 25 MG PO QAM Topiramate (Topamax), 50 MG PO QPM Vitamin A ([id number]), 10,000 INTER.UNIT PO DAILY Vitamin E (Vitamin E), 400 UNITS PO DAILY Zinc Gluconate (Zinc), 50 MG PO BID [Levetiracetam], 2,000 MG PO BID Scheduled PRN Albuterol Hfa (Ventolin Hfa), 2-4 PUFFS INH Q6H PRN for Shortness of Breath Epinephrine (Epipen), 0.3 MG IM UD PRN for ALLERGIC REACTION Glucose-Vitamin C (Glucose), 1 CHW PO UD PRN for Hypoglycemia Meloxicam (Mobic), 7.5 MG PO DAILY PRN for Pain Rizatriptan Benzoate (Rizatriptan Benzoate), 10 MG PO UD PRN for Headache Description This is a 21 electrode EEG with a single channel dedicated to limited EKG. The electrodes were placed in accordance with the International 10-20 system. At the start of this recording the patient was in an awake state. Background was poorly organized often with no well formed anterior to posterior gradient. Background was composed of symmetric moderate amplitude 5-6 Hz theta frequencies with frequent intermittent generalized or bifrontal 3-4 Hz delta slowing that at times was sharply contoured in the left greater than right frontal regions. There was occasional generalized high amplitude, frontal predominant, spike and slow wave discharges at 4-5 Hz lasting less than a second , with at times left greater than right frontal predominance. Rarely these generalized spike and wave discharges would occur singly. Hyperventilation was not done. Photic stimulation at various frequencies did not produce any abnormalities. There was no state changes or sleep transients. Interpretation This is an abnormal routine EEG secondary to: 1) occasional generalized 4-5 Hz spike and wave discharges 2) moderate background disorganization and slowing There was no electrographic seizures. Clinical Correlation 1) This EEG indicates an increased epileptogenic potential and predisposition towards generalized seizures. This EEG is consistent with a generalized epilepsy. There was no polyspike waves that would be consistent with classical CHARLEEN. 2) This EEG also indicates moderate encephalopathy of nonspecific etiology.
== END | disposition home or self-care (01) ==
LOC: C.NEUR 13:55
PROVIDERS: ATTEND Psychiatry & Neurology Neurology
DX: G40.909 Epilepsy, unspecified, not intractable, without status epilepticus (principal); G93.40 Encephalopathy, unspecified

== ENCOUNTER 2016-10-10 04:25 | Emergency (ER) | payer BC, OTHER ==
[~2016-10-10] VITALS: Ht 165.1 cm; Wt 92.4 kg
[~2016-10-10 04:25] MED LIST changes: -ACET-1047 PO; -BUME1TAB PO; -CARB25TA14 PO; -CARB25TA16 PO; -CIPR-255 PO; -CRAN1TAB6 PO; -KETO10TA PO; -KFL500 PO; -LACO50TA PO; -LCTL30 PO; -LDDP5 TD; -LEVE100021 PO; -LUTE15CA PO; -MIRT30TA2 PO; -MTR/400 PO; -MULT-506 PO; -NAPR-998 PO; -ONDA4TAB10 SL; -OXYC1TAB3 PO; -PROM12.57 PO; -RMR15 PO; -SPIR25TA PO; -SUMA100T16 PO; -TOPI50TA16 PO; -TRIA1SPR4 NAE; -VITA80004 PO; -[UNRECOGNIZED DRUG - CODE] PO; -[UNRECOGNIZED DRUG - CODE] PO
[2016-10-10 04:28] VITALS: TEMP 36.7; Ht 165.1 cm; Wt 92.4 kg
[2016-10-10 05:04] VITALS: O2SAT 98
[2016-10-10 05:32] LABS: HEMATOCRIT 26.5 % (37-47); MEAN CELL VOLUME 104.3 fL (80-100); MEAN CORPUSCULAR HEMOGLOBIN 36.6 pg (25-34); MEAN CORPUSCULAR HGB CONC 35.1 g/dl (32-36); RED BLOOD COUNT 2.54 M/uL (4.2-5.4); WHITE BLOOD COUNT 3.16 K/uL (4.8-10.8)
[2016-10-10 05:44] LABS: MEAN PLATELET VOLUME 10.3 fL (7.4-10.4); PLATELET COUNT 76 K/uL (130-400)
[2016-10-10 05:50] LABS: BUN/CREATININE RATIO 26.7 (10-20); CALCIUM 7.6 mg/dl (8.5-10.1); CREATININE 0.49 mg/dl (0.60-1.20); MAGNESIUM 1.7 mg/dl (1.8-2.4); POTASSIUM 3.6 mmol/L (3.5-5.1)
[2016-10-10] MEDS ORDERED: CALCIUM CARBONATE 500 MG CHEWABLE PO STA (05:56)
[2016-10-10 06:01] LABS: BASO % 0.9 %; BASO ABS # 0.03 K/uL (0-0.2); COMPLETE YES; EOS % 4.1 %; LYMPH % 33.2 %; LYMPH ABS # 1.05 K/uL (1.2-3.4); MONO % 7.9 %; NEUT % 53.9 %; OVALOCYTES 1+
--- NOTE | 2016-10-10 06:03 | EMERGENCY ROOM VISIT NOTE ---
History First contact with patient: 04:36 Chief Complaint: SEIZURE Stated Complaint: SEIZURE Nursing Triage Summary: patient states around 0400 she woke up from sleep feeling " weird". patient states usually when she wakes up like this it is after she has had a seizure. patient states she has a severe headache. History of Present Illness The patient is a 50 year old female who presents to the Emergency Room with complaints of possible seizure this morning. She states she woke up feeling funny and thought she had a seizure. She tried to call her but he did not pickling solution maker the phone so she called 911 instead. Patient states she woke up at around 3 to go the bathroom and her helped her to the bathroom on his lunch break and went back to work. She does not recall having a seizure but states she normally feels like this when she does have one. She has been taking her Keppra 2000 mg twice a day. She still been taking her Trileptal. She had her EEG but does not know the results. She's had seizures all her life. She was recently admitted for her seizures last month and this is when they recommended an new EEG. This was done outpatient. Patient denies chest pain, dyspnea, abdominal pain, fever, chills. Patient complains of a mild headache which is normal for her after having a seizure. Review of Systems See HPI for pertinent positives & negatives. A total of 10 systems reviewed and were otherwise negative. 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 (17) Seizure disorder Surgical Problems: (1) H/O nasal septoplasty (2) History of appendectomy (3) History of cholecystectomy (4) History of hysterectomy (5) History of kyphoplasty (6) History of tonsillectomy (7) s/p spinal stimulator placement Family History Depression Hypertension Social History Smoking Status: Never Smoker Alcohol Use: none Drug Use: none Marital Status: Housing Status: lives with significant other Occupation Status: disabled Current/Historical Medications Scheduled Ascorbic Acid (Vitamin C), 1,000 MG PO QAM Budesonide/Formoterol Fumarate (Symbicort 160/4.5 Inhaler ), 2 PUFFS INH BID Caffeine-Magnesium Salicylate (Diurex 50-162.5 mg), 1 TAB PO QAM Cholecalciferol (Vitamin D), 2,000 UNITS PO DAILY Cranberry (Vaccinium Macrocarp (Cranberry), 1 TAB PO TID Desvenlafaxine Succinate (Pristiq), 50 MG PO QAM Ferrous Sulfate (Ferrous Sulfate), 325 MG PO QPM Fluticasone Propionate (Fluticasone Propionate), 1-2 SPRAYS ABRAHAN BID Insulin Glargine (Toujeo Solostar), 38 UNITS SQ QAM Insulin Lispro (Human) (Humalog Kwikpen), UNITS SC UD Lactulose (Chronulac), 30 ML PO BID Lecithin (Lecithin), 1,200 MG PO DAILY Levodopa/Carbidopa (Sinemet Cr 25MG/100MG), 2 TAB PO TID Levothyroxine Sodium (Levothyroxine Sodium), 75 MCG PO QAM Lutein (Lutein), 20 MG PO DAILY Magnesium Oxide (Mag-Ox), 400 MG PO TID Mirtazapine (Remeron), 15 MG PO HS Multiple Vitamin (Multivitamin), 1 TABLET PO DAILY Omeprazole (Prilosec), 20 MG PO QAM Oxcarbazepine (Trileptal), 600 MG PO BID Probiotic Product (Probiotic), 1 CAP PO DAILY Pumpkin Seed-Soy Germ (Azo Bladder Control/Go-Le), 1 CAP PO DAILY Ranitidine HCl (Ranitidine HCl), 150 MG PO BID Rifaximin (Xifaxan), 550 MG PO BID Topiramate (Topamax ), 25 MG PO QAM Topiramate (Topamax), 50 MG PO QPM Vitamin A ([id number]), 10,000 INTER.UNIT PO DAILY Vitamin E (Vitamin E), 400 UNITS PO DAILY Zinc Gluconate (Zinc), 50 MG PO BID [Levetiracetam], 2,000 MG PO BID Scheduled PRN Albuterol Hfa (Ventolin Hfa), 2-4 PUFFS INH Q6H PRN for Shortness of Breath Epinephrine (Epipen), 0.3 MG IM UD PRN for ALLERGIC REACTION Glucose-Vitamin C (Glucose), 1 CHW PO UD PRN for Hypoglycemia Meloxicam (Mobic), 7.5 MG PO DAILY PRN for Pain Rizatriptan Benzoate (Rizatriptan Benzoate), 10 MG PO UD PRN for Headache Allergies Coded Allergies: Amoxicillin (Verified Allergy, Intermediate, HIVES, 08/13/16) Azithromycin (Verified Allergy, Intermediate, HIVES, 08/13/16) Baclofen (Verified Allergy, Intermediate, RASH, 08/13/16) Butalbital (Verified Allergy, Intermediate, HIVES, 08/13/16) Clarithromycin (Verified Allergy, Intermediate, RASH, 08/13/16) Dicyclomine (Verified Allergy, Intermediate, HIVES, 08/13/16) HIVES Penicillins (Verified Allergy, Intermediate, RASH, 08/13/16) PT STATES SHE GETS WELTS FROM CIPRO,LEVAQUIN ALLERGY PER DR ROBLES Tetracyclines (Verified Allergy, Intermediate, DOXYCYCLINE-HIVES, 08/13/16) Sulindac (Verified Allergy, Mild, ALLERGY LISTED "CLONDORAL"--HIVES, ) Adhesives (Verified Allergy, Unknown, RASH, DUODERM=RED,ITCHY, 08/13/16) PLASTIC TAPE IS OK!!! DUODERM=RED,ITCHY Metronidazole (Verified Allergy, Unknown, SEIZURE, 08/13/16) Tramadol (Verified Allergy, Unknown, SEIZURES, 08/13/16) Metoclopramide (Verified Adverse Reaction, Severe, SEIZURES, 08/13/16) Furosemide (Verified Adverse Reaction, Unknown, HIVES, 08/13/16) Uncoded Allergies: BLUEBERRIES (Allergy, Unknown, STOMACH PAIN, 05/22/16) ORANGE PULP (Allergy, Unknown, MIGRAINES, 05/22/16) Physical Exam Vital Signs Date Time Temp Pulse Resp B/P (MAP) Pulse Ox O2 Delivery O2 Flow Rate FiO2 10/10/16 05:23 73 20 177/84 98 Room Air 10/10/16 05:04 98 Room Air 10/10/16 05:03 98 Room Air 10/10/16 04:33 76 10/10/16 04:28 36.7 87 18 167/88 100 Room Air Physical Exam VITALS: Vitals are noted on the nurse's note and reviewed by myself. Vital signs stable. GENERAL: White female, in no acute distress, nondiaphoretic, well-developed well -nourished. SKIN: The skin was without rashes, erythema, edema, or bruising. There is no tenting of the skin. Capillary reflex less than 2 seconds. HEAD: Normocephalic atraumatic. EARS: External auditory canals clear, tympanic membranes pearly jorgensen without erythema or effusion bilaterally. EYES: Pupils equal round and reactive to light and accommodation. Conjunctivae without injection, sclerae without icterus. Extraocular movements intact. NOSE: Patent, turbinates without inflammation or discharge. MOUTH: Mucous membranes moist. Pharynx without erythema or exudate. Uvula midline. Airway patent. Tongue does not deviate. NECK: Supple without nuchal rigidity. No lymphadenopathy. No thyromegaly. Cervical spine is nontender. No JVD. HEART: Regular rate and rhythm LUNGS: Clear to auscultation bilaterally without wheezes, rales or rhonchi. No dullness to percussion. No retractions or accessory muscle use. ABDOMEN: Positive bowel sounds x 4. Normal tympanic percussion. Soft, nontender, without masses or organomegaly. Perkins sign negative. No guarding or rebound tenderness. MUSCULOSKELETAL: No muscle atrophy, erythema, or edema noted. NEURO: Patient was alert and oriented to person place and time. Normal sensation to light and sharp touch. No focal neurological deficits. Cranial nerves II through XII grossly intact. No pronator drift. Cerebellar exam intact. Medical Decision & Procedures Laboratory Results 10/10/16 05:18 Red Blood Count 2.54, Mean Corpuscular Volume 104.3, Mean Corpuscular Hemoglobin 36.6, Mean Corpuscular Hemoglobin Concent 35.1, Mean Platelet Volume 10.3, Neutrophils (%) (Auto) 53.9, Lymphocytes (%) (Auto) 33.2, Monocytes (%) ( Auto) 7.9, Eosinophils (%) (Auto) 4.1, Basophils (%) (Auto) 0.9, Neutrophils # ( Auto) 1.70, Lymphocytes # (Auto) 1.05, Monocytes # (Auto) 0.25, Eosinophils # ( Auto) 0.13, Basophils # (Auto) 0.03 10/10/16 05:18 Test 10/10/16 05:00 10/10/16 05:18 Bedside Glucose 170 mg/dl (70-90) White Blood Count 3.16 K/uL (4.8-10.8) Red Blood Count 2.54 M/uL (4.2-5.4) Hemoglobin 9.3 g/dL (12.0-16.0) Hematocrit 26.5 % (37-47) Mean Corpuscular Volume 104.3 fL (80-100) Mean Corpuscular Hemoglobin 36.6 pg (25-34) Mean Corpuscular Hemoglobin Concent 35.1 g/dl (32-36) Platelet Count 76 K/uL (130-400) Mean Platelet Volume 10.3 fL (7.4-10.4) Neutrophils (%) (Auto) 53.9 % Lymphocytes (%) (Auto) 33.2 % Monocytes (%) (Auto) 7.9 % Eosinophils (%) (Auto) 4.1 % Basophils (%) (Auto) 0.9 % Neutrophils # (Auto) 1.70 K/uL (1.4-6.5) Lymphocytes # (Auto) 1.05 K/uL (1.2-3.4) Monocytes # (Auto) 0.25 K/uL (0.11-0.59) Eosinophils # (Auto) 0.13 K/uL (0-0.5) Basophils # (Auto) 0.03 K/uL (0-0.2) RDW Standard Deviation 53.7 fL (36.4-46.3) RDW Coefficient of Variation 14.4 % (11.5-14.5) Immature Granulocyte % (Auto) 0.0 % Immature Granulocyte # (Auto) 0.00 K/uL (0.00-0.02) Ovalocytes 1+ Anion Gap 5.0 mmol/L (3-11) Est Creatinine Clear Calc Drug Dose 154.3 ml/min Estimated GFR () 131.7 Estimated GFR (Non- 113.6 BUN/Creatinine Ratio 26.7 (10-20) Calcium Level 7.6 mg/dl (8.5-10.1) Phosphorus Level 3.0 mg/dl (2.5-4.9) Magnesium Level 1.7 mg/dl (1.8-2.4) ED Course Prior records/ancillary studies reviewed. Patient placed in seizure precautions immediately upon arrival. Nursing notes reviewed. Additional history obtained from nursing The patient's history was concerning for a possible seizure. Differential diagnosis: Etiologies such as infection, hypoglycemia, electrolyte abnormalities, cardiac sources, intracerebral event, trauma, toxicologic, neurologic, as well as others were entertained. Physical examination: As above. No signs of trauma. ER treatment provided: Patient was observed On reassessment the patient felt better. Diagnostics interpretation by me: ECG: Normal sinus, normal intervals, no acute ST-T wave changes, rate of 78. Impression normal sinus rhythm interpreted by myself The labs revealed chronic anemia unchanged per chart review. Chronic hypocalcemia. This is replaced orally. Keppra level is pending and is a send out. The patient has a history of seizures and experienced another episode. No concerning physical findings or historical points were noted. Advanced diagnostics were deemed unnecessary. By the evaluation outlined above emergent etiologies such as infection, hypoglycemia, electrolyte abnormalities, cardiac sources, intracerebral event, toxicologic, neurologic,as well as others were deemed relatively unlikely. Patient is well-known to this ER for frequent ER visits. She just was admitted for seizure disorder. She has not missed any of her doses of her Keppra per patient. She does not drive. No deficits on exam. She is neurovascularly and neurologically intact. The patient was counseled not to drive until cleared in follow-up and seizure precautions given. I gave my usual and customary discussion regarding these issues. The pt informed about the findings as listed above. All questions were answered and pleased with the treatment. Return instructions were outlined and the patient was discharged in stable condition. Referral: The patient was referred back to their family care doctor and neurologist for follow-up in 2 to 3 days for a recheck of the current condition. Case reviewed with my attending Medical Decision As above Impression Primary Impression: Seizure Additional Impressions: Anemia Hypocalcemia Departure Information Dispostion Home / Self-Care Condition GOOD Referrals Mingo Lin M.D. (PCP) Patient Instructions [facility] Additional Instructions Rest and drink plenty of fluids as tolerated. Continue current medications. Return to the ER immediately for worsening or persistent seizures, abdominal pain, vomiting, fevers, chest pains, difficulty breathing, worsening of your condition, or as needed. Follow up with your primary physician and neurologist in 2-3 days for a recheck of your current condition. Problem Qualifiers
--- NOTE | 2016-10-10 06:03 | EMERGENCY ROOM VISIT NOTE ---
ED Visit Note First contact with patient: 04:36 I saw this patient in conjunction with Rahel Wright PA-C. I agree with her decision making and treatment plan.
[2016-10-10 07:45] VITALS: BP 117/72; PULSE 74; O2SAT 99
[2016-10-14] MEDS ORDERED: CARB25TA16 PO (10:30)
== END 2016-10-10 07:50 | disposition home or self-care (01) ==
LOC: EDBD 04:25 → C.EDB 04:27
DX: G40.909 Epilepsy, unspecified, not intractable, without status epilepticus (principal); D64.9 Anemia, unspecified; E83.51 Hypocalcemia; R51 Headache; J45.909 Unspecified asthma, uncomplicated; F31.9 Bipolar disorder, unspecified; K74.60 Unspecified cirrhosis of liver; E11.43 Type 2 diabetes mellitus with diabetic autonomic (poly)neuropathy; R01.1 Cardiac murmur, unspecified; E87.0 Hyperosmolality and hypernatremia; F32.3 Major depressive disorder, single episode, severe with psychotic features; D46.9 Myelodysplastic syndrome, unspecified; K27.9 Peptic ulcer, site unspecified, unspecified as acute or chronic, without hemorrhage or perforation; K76.6 Portal hypertension; F45.9 Somatoform disorder, unspecified; Z96.9 Presence of functional implant, unspecified; Z90.710 Acquired absence of both cervix and uterus; Z79.4 Long term (current) use of insulin; Z82.49 Family history of ischemic heart disease and other diseases of the circulatory system; Z81.8 Family history of other mental and behavioral disorders

== ENCOUNTER 2016-10-14 16:20 | Inpatient (IN) | payer BC, OTHER ==
[~2016-10-14] VITALS: Ht 165.1 cm; Wt 110.0 kg
[~2016-10-14 16:20] MED LIST changes: +CARB25TA16 PO
[2016-10-14 16:52] LABS: BASO % 0.5 %; BASO ABS # 0.03 K/uL (0-0.2); COMPLETE YES; EOS % 2.7 %; HEMATOCRIT 33.2 % (37-47); IG% 0.2 %; LYMPH % 38.8 %; LYMPH ABS # 2.12 K/uL (1.2-3.4); MEAN CELL VOLUME 104.1 fL (80-100); MEAN CORPUSCULAR HGB CONC 35.5 g/dl (32-36); MEAN PLATELET VOLUME 10.2 fL (7.4-10.4); MONO % 11.7 %; NEUT % 46.1 %; PLATELET COUNT 108 K/uL (130-400); RED BLOOD COUNT 3.19 M/uL (4.2-5.4); WHITE BLOOD COUNT 5.47 K/uL (4.8-10.8)
--- NOTE | 2016-10-14 17:04 | DIAGNOSTIC IMAGING REPORT ---
CHEST ONE VIEW PORTABLE CLINICAL HISTORY: eval for pnea dyspnea COMPARISON STUDY: 05/06/2016 FINDINGS: Right upper lobe infiltrate. Lungs otherwise are clear. Mild stable cardia megaly. Central catheter in the superior vena cava. IMPRESSION: Right upper lobe infiltrate The above report was generated using voice recognition software. It may contain grammatical, syntax or spelling errors. Electronically signed by: Kenroy Yates M.D. 10/14/2016 5:03 PM Dictated Date/Time: 10/14/2016 5:02 PM
[2016-10-14 17:07] LABS: INR 1.1 (0.9-1.1); PROTHROMBIN TIME (PATIENT) 12.3 SECONDS (9.0-12.0)
[2016-10-14 17:18] LABS: URINE APPEARANCE CLEAR (CLEAR); URINE BILIRUBIN NEG (NEG); URINE COLOR DK YELLOW; URINE NITRITE POS (NEG); URINE PH 6.5 (4.5-7.5); URINE SPECIFIC GRAVITY 1.025 (1.000-1.030); UROBILINOGEN POS (NEG)
[2016-10-14 17:19] LABS: ALKALINE PHOSPHATASE 205 U/L (45-117); ALT/SGPT 59 U/L (12-78); AST/SGOT 56 U/L (15-37); BLOOD UREA NITROGEN 14 mg/dl (7-18); BUN/CREATININE RATIO 23.3 (10-20); CALCIUM 8.2 mg/dl (8.5-10.1); CARBON DIOXIDE 24 mmol/L (21-32); CHLORIDE 118 mmol/L (98-107); CREATININE 0.58 mg/dl (0.60-1.20); GLUCOSE 41 mg/dl (70-99); POTASSIUM 3.3 mmol/L (3.5-5.1); SODIUM 149 mmol/L (136-145)
[2016-10-14] MEDS ORDERED: DEXTROSE 50% 50 ML SYR IV STA (17:19)
[2016-10-14] MEDS ORDERED: LACTULOSE SYRUP 20 GM/30 ML UDC PO STA (17:19)
[2016-10-14 17:30] LABS: MANUAL MICROSCOPIC REQUIRED? NO; REVIEW REQ? NO
[2016-10-14] MEDS ORDERED: LACTULOSE 200GM/700ML WTR ENEMA PR STA (18:00)
[2016-10-14] MEDS ORDERED: LACTULOSE SYRUP 200 GM, WATER, STERILE IRRIG 700 ML, BARCODE IDENTIFIER 1 EA PR ONE ×2 (18:15)
[2016-10-14] MEDS ORDERED: ALBUT/IPRATROP 3MG/0.5MG NEB 3 ML VIAL INH PRN (18:30)
--- NOTE | 2016-10-14 18:42 | EMERGENCY ROOM VISIT NOTE ---
History Report prepared by Broderick: Martin Winn Under the Supervision of: Dr. Erick Barone M.D. First contact with patient: 16:25 Chief Complaint: ALTERED MENTAL STATUS Stated Complaint: LETHARGIC, BARELY RESPONSIVE Nursing Triage Summary: Pt to triage with states pt was at meeting today from [id number] "They said she was slow at the meeting and she just kept getting worse" Pt slumped over in wheelchair on arrival unresponsive to tactile stimuli vital signs stable History of Present Illness The patient is a 50 year old female who presents to the Emergency Room with a worsening altered mental status beginning yesterday. The patient's states the patient has been semi to non-responsive beginning yesterday. He denies seizures, falling, hitting her head, fevers, and vomiting. The reports that the patient ate breakfast and went to her community service group. He notes that he was told she was not acting normal, so he picked her up. The states that he thought she was dehydrated, so he had her drink a bottle of tea. He checked her blood sugar and it was 181. The HPI & ROS are limited secondary to the patient's altered mental status. Source of History: spouse/significant other History Limited By: AMS Review of Systems The HPI & ROS are limited secondary to the patient's altered mental status. 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 (18) Seizure disorder Surgical Problems: (1) H/O nasal septoplasty (2) History of appendectomy (3) History of cholecystectomy (4) History of hysterectomy (5) History of kyphoplasty (6) History of tonsillectomy (7) s/p spinal stimulator placement Family History Depression Hypertension Social History Smoking Status: Unknown if Ever Smoked Alcohol Use: none Drug Use: none Marital Status: Housing Status: lives with significant other Occupation Status: disabled Current/Historical Medications Scheduled Ascorbic Acid (Vitamin C), 1,000 MG PO QAM Budesonide/Formoterol Fumarate (Symbicort 160/4.5 Inhaler ), 2 PUFFS INH BID Caffeine-Magnesium Salicylate (Diurex 50-162.5 mg), 1 TAB PO QAM Cholecalciferol (Vitamin D), 2,000 UNITS PO DAILY Cranberry (Vaccinium Macrocarp (Cranberry), 1 TAB PO TID Desvenlafaxine Succinate (Pristiq), 50 MG PO QAM Ferrous Sulfate (Ferrous Sulfate), 325 MG PO QPM Fluticasone Propionate (Fluticasone Propionate), 1-2 SPRAYS ABRAHAN BID Insulin Glargine (Toujeo Solostar), 38 UNITS SQ QAM Insulin Lispro (Human) (Humalog Kwikpen), UNITS SC UD Lactulose (Chronulac), 30 ML PO BID Lecithin (Lecithin), 1,200 MG PO DAILY Levodopa/Carbidopa (Sinemet Cr 25MG/100MG), 0.5 TAB PO TID Levothyroxine Sodium (Levothyroxine Sodium), 75 MCG PO QAM Lutein (Lutein), 20 MG PO DAILY Magnesium Oxide (Mag-Ox), 400 MG PO TID Mirtazapine (Remeron), 15 MG PO HS Multiple Vitamin (Multivitamin), 1 TABLET PO DAILY Omeprazole (Prilosec), 20 MG PO QAM Oxcarbazepine (Trileptal), 600 MG PO BID Probiotic Product (Probiotic), 1 CAP PO DAILY Pumpkin Seed-Soy Germ (Azo Bladder Control/Go-Le), 1 CAP PO DAILY Ranitidine HCl (Ranitidine HCl), 150 MG PO BID Rifaximin (Xifaxan), 550 MG PO BID Topiramate (Topamax), 50 MG PO BID Vitamin A ([id number]), 10,000 INTER.UNIT PO DAILY Vitamin E (Vitamin E), 400 UNITS PO DAILY Zinc Gluconate (Zinc), 50 MG PO BID [Levetiracetam], 2,000 MG PO BID Scheduled PRN Albuterol Hfa (Ventolin Hfa), 2-4 PUFFS INH Q6H PRN for Shortness of Breath Epinephrine (Epipen), 0.3 MG IM UD PRN for ALLERGIC REACTION Glucose-Vitamin C (Glucose), 1 CHW PO UD PRN for Hypoglycemia Meloxicam (Mobic), 7.5 MG PO DAILY PRN for Pain Rizatriptan Benzoate (Rizatriptan Benzoate), 10 MG PO UD PRN for Headache Allergies Coded Allergies: Amoxicillin (Verified Allergy, Intermediate, HIVES, 08/13/16) Azithromycin (Verified Allergy, Intermediate, HIVES, 08/13/16) Baclofen (Verified Allergy, Intermediate, RASH, 08/13/16) Butalbital (Verified Allergy, Intermediate, HIVES, 08/13/16) Clarithromycin (Verified Allergy, Intermediate, RASH, 08/13/16) Dicyclomine (Verified Allergy, Intermediate, HIVES, 08/13/16) HIVES Penicillins (Verified Allergy, Intermediate, RASH, 08/13/16) PT STATES SHE GETS WELTS FROM CIPRO,LEVAQUIN ALLERGY PER DR ROBLES Tetracyclines (Verified Allergy, Intermediate, DOXYCYCLINE-HIVES, 08/13/16) Sulindac (Verified Allergy, Mild, ALLERGY LISTED "CLONDORAL"--HIVES, ) Adhesives (Verified Allergy, Unknown, RASH, DUODERM=RED,ITCHY, 08/13/16) PLASTIC TAPE IS OK!!! DUODERM=RED,ITCHY Metronidazole (Verified Allergy, Unknown, SEIZURE, 08/13/16) Tramadol (Verified Allergy, Unknown, SEIZURES, 08/13/16) Metoclopramide (Verified Adverse Reaction, Severe, SEIZURES, 08/13/16) Furosemide (Verified Adverse Reaction, Unknown, HIVES, 08/13/16) Uncoded Allergies: BLUEBERRIES (Allergy, Unknown, STOMACH PAIN, 05/22/16) ORANGE PULP (Allergy, Unknown, MIGRAINES, 05/22/16) Physical Exam Vital Signs Date Time Temp Pulse Resp B/P (MAP) Pulse Ox O2 Delivery O2 Flow Rate FiO2 10/14/16 18:10 72 16 139/86 100 Room Air 10/14/16 17:30 85 24 149/66 100 Room Air 10/14/16 16:26 101 10/14/16 16:25 36.6 97 20 159/74 98 Room Air Physical Exam The physical exam is limited due to the patient's condition. Constitutional: Vital signs reviewed. Eyes: Pupils are equal round reactive to light. Conjunctiva are noninjected. ENT: No pooling of secretions. Respiratory: Clear to auscultation bilaterally. Breath sounds are equal bilaterally. Cardiovascular: Regular rate and rhythm. No murmurs, rubs or gallops. GI: Soft, nondistended and nontender. Bowel sounds are present. Musculoskeletal: No peripheral edema. Integumentary: No rashes, petechiae or purpura. Neurological: The patient is somnolent and unresponsive. Psychiatric: Unable to assess. Medical Decision & Procedures ER Provider Diagnostic Interpretation: X-ray results as stated below per interpretation by me and the radiologist: CHEST ONE VIEW PORTABLE CLINICAL HISTORY: eval for pnea dyspnea COMPARISON STUDY: 05/06/2016 FINDINGS: Right upper lobe infiltrate. Lungs otherwise are clear. Mild stable cardia megaly. Central catheter in the superior vena cava. IMPRESSION: Right upper lobe infiltrate The above report was generated using voice recognition software. It may contain grammatical, syntax or spelling errors. Electronically signed by: Kenroy Yates M.D. 10/14/2016 5:03 PM Dictated Date/Time: 10/14/2016 5:02 PM Laboratory Results 10/14/16 16:25 Red Blood Count 3.19, Mean Corpuscular Volume 104.1, Mean Corpuscular Hemoglobin 37.0, Mean Corpuscular Hemoglobin Concent 35.5, Mean Platelet Volume 10.2, Neutrophils (%) (Auto) 46.1, Lymphocytes (%) (Auto) 38.8, Monocytes (%) ( Auto) 11.7, Eosinophils (%) (Auto) 2.7, Basophils (%) (Auto) 0.5, Neutrophils # (Auto) 2.52, Lymphocytes # (Auto) 2.12, Monocytes # (Auto) 0.64, Eosinophils # ( Auto) 0.15, Basophils # (Auto) 0.03 10/14/16 16:25 Test 10/14/16 16:25 10/14/16 16:56 10/14/16 18:01 White Blood Count 5.47 K/uL (4.8-10.8) Red Blood Count 3.19 M/uL (4.2-5.4) Hemoglobin 11.8 g/dL (12.0-16.0) Hematocrit 33.2 % (37-47) Mean Corpuscular Volume 104.1 fL (80-100) Mean Corpuscular Hemoglobin 37.0 pg (25-34) Mean Corpuscular Hemoglobin Concent 35.5 g/dl (32-36) Platelet Count 108 K/uL (130-400) Mean Platelet Volume 10.2 fL (7.4-10.4) Neutrophils (%) (Auto) 46.1 % Lymphocytes (%) (Auto) 38.8 % Monocytes (%) (Auto) 11.7 % Eosinophils (%) (Auto) 2.7 % Basophils (%) (Auto) 0.5 % Neutrophils # (Auto) 2.52 K/uL (1.4-6.5) Lymphocytes # (Auto) 2.12 K/uL (1.2-3.4) Monocytes # (Auto) 0.64 K/uL (0.11-0.59) Eosinophils # (Auto) 0.15 K/uL (0-0.5) Basophils # (Auto) 0.03 K/uL (0-0.2) RDW Standard Deviation 56.3 fL (36.4-46.3) RDW Coefficient of Variation 14.8 % (11.5-14.5) Immature Granulocyte % (Auto) 0.2 % Immature Granulocyte # (Auto) 0.01 K/uL (0.00-0.02) Prothrombin Time 12.3 SECONDS (9.0-12.0) Prothromb Time International Ratio 1.1 (0.9-1.1) Activated Partial Thromboplast Time 51.6 SECONDS (21.0-31.0) Partial Thromboplastin Ratio 2.0 Anion Gap 7.0 mmol/L (3-11) Estimated GFR () 124.6 Estimated GFR (Non- 107.5 BUN/Creatinine Ratio 23.3 (10-20) Calcium Level 8.2 mg/dl (8.5-10.1) Magnesium Level 1.9 mg/dl (1.8-2.4) Total Bilirubin 1.7 mg/dl (0.2-1) Direct Bilirubin 0.6 mg/dl (0-0.2) Aspartate Amino Transf (AST/SGOT) 56 U/L (15-37) Alanine Aminotransferase (ALT/SGPT) 59 U/L (12-78) Alkaline Phosphatase 205 U/L (45-117) Ammonia 167.0 umol/L (11-32) Troponin I < 0.015 ng/ml (0-0.045) Total Protein 6.4 gm/dl (6.4-8.2) Albumin 3.3 gm/dl (3.4-5.0) Urine Color DK YELLOW Urine Appearance CLEAR (CLEAR) Urine pH 6.5 (4.5-7.5) Urine Specific [place] 1.025 (1.000-1.030) Urine Protein NEG (NEG) Urine Glucose (UA) NEG (NEG) Urine Ketones TRACE (NEG) Urine Occult Blood NEG (NEG) Urine Nitrite POS (NEG) Urine Bilirubin NEG (NEG) Urine Urobilinogen POS (NEG) Urine Leukocyte Esterase TRACE (NEG) Urine WBC (Auto) 1-5 /hpf (0-5) Urine RBC (Auto) 0-4 /hpf (0-4) Urine Hyaline Casts (Auto) 1-5 /lpf (0-5) Urine Epithelial Cells (Auto) 10-20 /lpf (0-5) Urine Bacteria (Auto) NEG (NEG) Bedside Glucose 192 mg/dl (70-90) Laboratory results as reviewed by me. Medications Administered Medications (Trade) Dose Ordered Sig/Danita Route Start Time Stop Time Status Last Admin Dose Admin Dextrose (Dextrose 50% 50ML Syringe) 50 ml NOW STAT IV 10/14/16 17:19 10/14/16 17:21 DC 10/14/16 17:26 50 ML ECG Indication: altered mental status Rate (beats per minute): 100 Rhythm: normal sinus Findings: no acute ischemic change, prolonged QT, no ectopy ED Course 1631: The patient was evaluated in room A10. A complete history and physical exam was performed. 1712: I reevaluated the patient, and she is coughing somewhat but nonverbal. I discussed the test results and exam findings with her . 1719: Ordered Dextrose 50 ml IV, Lactulose 30 gm PO 1720: I discussed the patient's case with Dr. Rivera, [facility] Hospitalist. The patient will be evaluated for further treatment. 1731: I reevaluated the patient, and she is slightly more responsive after the Dextrose 50 ml IV. 1735: The patient's repeat blood sugar is 212. 1800: I reevaluated the patient, and she is still non-verbal. Medical Decision This is a 50-year-old female who presents with altered mental status. Differential diagnosis includes hepatic encephalopathy, hyperammonemia, metabolic derangement, malingering, infection. I did perform a limited focused review of portions of the patient's old chart on the electronic medical record. The patient was seen on October 10 for a possible seizure. She has chronic hypocalcemia and pancytopenia. She had an EEG September 30 which is consistent with epilepsy. She was admitted on September 27 for recurrent seizures. Medication Reconciliation: I attest that I have personally reviewed the patient' s current medication list. Blood Pressure Screening: Patient was found to have an elevated blood pressure and was referred to their primary doctor for recheck and further treatment. I did evaluate the patient as noted above. The patient is presenting with change in mental status. The patient is here frequently with similar complaints. The patient's is providing history. He states that she has been not herself throughout the day and starting last night. He checked her blood sugar before bringing her here and it was 181. The patient has a history of frequent hepatic encephalopathy. Her port was accessed. The patient was placed on a continuous photographer finish. I did order and personally review the patient's 12-lead EKG and chest x-ray as described above. I did order and review the patient's blood work as noted in the electronic medical record. Her blood sugar is 41. She was given an amp of D50. Her ammonia level is significantly elevated as well. She was given a rectal enema of lactulose. I did reassess the patient multiple times. Her blood sugar did improve but her mental status only slightly improved. She will be hospitalized for further evaluation. I did discuss case with the hospitalist and case mgr. Consults Time Called: 1707 Consulting Physician: Dr. Rivera, [facility] Hospitalist Returned Call: 1720 I discussed the patient's case with Dr. Rivera [facility] Hospitalist. The patient will be evaluated for further treatment. Impression Primary Impression: Acute hepatic encephalopathy Additional Impressions: Hypoglycemia Hypokalemia Hypernatremia Anemia Thrombocytopenia Right upper lobe pneumonia Scribe Attestation The scribe's documentation has been prepared under my direct and personally reviewed by me in its entirety. I confirm that the note above accurately reflects all work, treatment, procedures, and medical decision making performed by me. Departure Information Dispostion Being Evaluated By Hospitalist Referrals Mingo Lin M.D. (PCP) Patient Instructions My [facility] Problem Qualifiers Additional Impressions: Anemia Anemia type: unspecified type Qualified Codes: D64.9 - Anemia, unspecified Right upper lobe pneumonia Pneumonia type: due to unspecified organism Qualified Codes: J18.1 - Lobar pneumonia, unspecified organism
[2016-10-14] MEDS ORDERED: DEXTROSE 50% 50 ML SYR IV PRN (19:15)
[2016-10-14] MEDS ORDERED: GLUCOSE 10 TABS/TUBE PO PRN (19:15)
[2016-10-14] MEDS ORDERED: GLUCAGON FOR INJ 1 MG VIAL SQ PRN (19:15)
[2016-10-14] MEDS ORDERED: GLUCOSE 40% GEL 15 GM TUBE PO PRN (19:15)
--- NOTE | 2016-10-14 19:25 | History and Physical ---
History & Physical Date & Time of Service: Oct 14, 2016 at 18:07 Chief Complaint: Lethargic, Barely Responsive Primary Care Physician: Mingo Lin M.D. History of Present Illness Source: hospital records 50yo female with cirrhosis 2nd to STEVE as well as multiple hospital admissions for hepatic encephalopathy many of which have been thought 2nd to medication noncompliance who presents with altered mental status. During my assessment the patient would open her eyes to her name being called but otherwise could not give any meaningful history. In fact she responded "yes" to all questions being asked and at one point simply fell asleep. Her was not present at the time of my assessment and thus additional information was unable to be obtained. According to ER records the patient was at a meeting of the community service group from 9am to about 1pm. Apparently she was very sleepy during the meeting and this got progressively worse with time. She was also quite sleepy yesterday per her . ER records indicate she was seen on 10/10/16 for a possible seizure and during that visit all lab testing was generally normal/acceptable. Last EEG was about 2 weeks ago showing a seizure focus. Upon presentation today the patient's ammonia level was markedly elevated at 167 and her serum glucose was about 40. After receiving an amp of D50 her mental status improved modestly. The patient's last hospital admission was about 3 weeks ago for seizures. During that hospitalization her keppra was increased to 2000mg twice daily. A keppra level from 10/10/16 was 35. Past Medical/Surgical History PMH: 1. asthma 2. 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 multiple hospitalizations for hepatic encephalopathy 4. T2DM 5. Diabetic gastroparesis 6. bipolar disorder 7. depression 8. h/o migraines 9. h/o myelodysplastic syndrome 10. h/o PUD 11. portal HTN 12. seizures and pseudoseizures 13. parkinsonism 14. hypothyroidism PSH: 1. h/o nasal septoplasty 2. s/p appendectomy 3. s/p cholecystectomy 4. s/p hysterectomy 5. h/o lumbar kyphoplasty 6. s/p tonsillectomy 7. s/p spinal nerve stimulator 8. port placement, right chest Family History Depression Hypertension Social History Smoking Status: Never Smoker Alcohol Use: none Drug Use: none Marital Status: Housing status: lives with family () Occupational Status: disabled Immunizations History of Influenza Vaccine: Yes Influenza Vaccine Date: Feb 02, 2013 History of Tetanus Vaccine?: utd Tetanus Immunization Date: Jun 11, 2008 History of Pneumococcal: SEE LAST PACKET Pneumococcal Date: Nov 13, 2008 History of Hepatitis B Vaccine: Unknown Hepatitis Immunization Date: Jan 12, 1996 Multi-Drug Resistant Organisms History of MDRO: No Allergies Coded Allergies: Amoxicillin (Verified Allergy, Intermediate, HIVES, 08/13/16) Azithromycin (Verified Allergy, Intermediate, HIVES, 08/13/16) Baclofen (Verified Allergy, Intermediate, RASH, 08/13/16) Butalbital (Verified Allergy, Intermediate, HIVES, 08/13/16) Clarithromycin (Verified Allergy, Intermediate, RASH, 08/13/16) Dicyclomine (Verified Allergy, Intermediate, HIVES, 08/13/16) HIVES Penicillins (Verified Allergy, Intermediate, RASH, 08/13/16) PT STATES SHE GETS WELTS FROM CIPRO,LEVAQUIN ALLERGY PER DR ROBLES Tetracyclines (Verified Allergy, Intermediate, DOXYCYCLINE-HIVES, 08/13/16) Sulindac (Verified Allergy, Mild, ALLERGY LISTED "CLONDORAL"--HIVES, ) Adhesives (Verified Allergy, Unknown, RASH, DUODERM=RED,ITCHY, 08/13/16) PLASTIC TAPE IS OK!!! DUODERM=RED,ITCHY Metronidazole (Verified Allergy, Unknown, SEIZURE, 08/13/16) Tramadol (Verified Allergy, Unknown, SEIZURES, 08/13/16) Metoclopramide (Verified Adverse Reaction, Severe, SEIZURES, 08/13/16) Furosemide (Verified Adverse Reaction, Unknown, HIVES, 08/13/16) Uncoded Allergies: BLUEBERRIES (Allergy, Unknown, STOMACH PAIN, 05/22/16) ORANGE PULP (Allergy, Unknown, MIGRAINES, 05/22/16) Home Medications Scheduled Ascorbic Acid (Vitamin C), 1,000 MG PO QAM Budesonide/Formoterol Fumarate (Symbicort 160/4.5 Inhaler ), 2 PUFFS INH BID Caffeine-Magnesium Salicylate (Diurex 50-162.5 mg), 1 TAB PO QAM Cholecalciferol (Vitamin D), 2,000 UNITS PO DAILY Cranberry (Vaccinium Macrocarp (Cranberry), 1 TAB PO TID Desvenlafaxine Succinate (Pristiq), 50 MG PO QAM Ferrous Sulfate (Ferrous Sulfate), 325 MG PO QPM Fluticasone Propionate (Fluticasone Propionate), 1-2 SPRAYS ABRAHAN BID Insulin Glargine (Toujeo Solostar), 38 UNITS SQ QAM Insulin Lispro (Human) (Humalog Kwikpen), UNITS SC UD Lactulose (Chronulac), 30 ML PO BID Lecithin (Lecithin), 1,200 MG PO DAILY Levodopa/Carbidopa (Sinemet Cr 25MG/100MG), 0.5 TAB PO TID Levothyroxine Sodium (Levothyroxine Sodium), 75 MCG PO QAM Lutein (Lutein), 20 MG PO DAILY Magnesium Oxide (Mag-Ox), 400 MG PO TID Mirtazapine (Remeron), 15 MG PO HS Multiple Vitamin (Multivitamin), 1 TABLET PO DAILY Omeprazole (Prilosec), 20 MG PO QAM Oxcarbazepine (Trileptal), 600 MG PO BID Probiotic Product (Probiotic), 1 CAP PO DAILY Pumpkin Seed-Soy Germ (Azo Bladder Control/Go-Le), 1 CAP PO DAILY Ranitidine HCl (Ranitidine HCl), 150 MG PO BID Rifaximin (Xifaxan), 550 MG PO BID Topiramate (Topamax), 50 MG PO BID Vitamin A ([id number]), 10,000 INTER.UNIT PO DAILY Vitamin E (Vitamin E), 400 UNITS PO DAILY Zinc Gluconate (Zinc), 50 MG PO BID [Levetiracetam], 2,000 MG PO BID Scheduled PRN Albuterol Hfa (Ventolin Hfa), 2-4 PUFFS INH Q6H PRN for Shortness of Breath Epinephrine (Epipen), 0.3 MG IM UD PRN for ALLERGIC REACTION Glucose-Vitamin C (Glucose), 1 CHW PO UD PRN for Hypoglycemia Meloxicam (Mobic), 7.5 MG PO DAILY PRN for Pain Rizatriptan Benzoate (Rizatriptan Benzoate), 10 MG PO UD PRN for Headache Review of Systems unable to obtain 2nd to altered mental status Physical Exam Vital Signs Date Time Temp Pulse Resp B/P (MAP) Pulse Ox O2 Delivery O2 Flow Rate FiO2 7/17/17 17:30 85 24 149/66 100 Room Air 10/14/16 16:26 101 10/14/16 16:25 36.6 97 20 159/74 98 Room Air General Appearance: no apparent distress, + pertinent finding (lethargic, scantly opens her eyes to name being called, moaning) Head: normocephalic, atraumatic Eyes: normal inspection, PERRL, + pertinent finding (no nystagmus ) ENT: + pertinent finding (MM dry; left TM wnl; right TM obscured by cerumen; throat otherwise clear ) Neck: supple, no adenopathy, thyroid normal, no JVD Respiratory/Chest: no respiratory distress, no accessory muscle use, + pertinent finding (mildly course breath sounds right upper lobe otherwise CTA b/ l, no increased work of breathing ) Cardiovascular: regular rate, rhythm, no gallop, no murmur, normal peripheral pulses Abdomen/GI: normal bowel sounds, non tender, soft, no organomegaly Back: normal inspection Extremities/Musculoskelatal: no pedal edema Neurologic/Psych: + pertinent finding (lethargic, DTRs 2+ b/l upper and lower extremities; negative babinski's bilaterally; appears to move all 4 limbs spontaneously; no facial droop) Skin: no rash unable to assess for asterixis Diagnostics Laboratory Results Results Past 24 Hours Test 10/14/16 16:25 10/14/16 16:56 10/14/16 18:02 Range/Units White Blood Count 5.47 4.8-10.8 K/uL Red Blood Count 3.19 4.2-5.4 M/uL Hemoglobin 11.8 12.0-16.0 g/dL Hematocrit 33.2 37-47 % Mean Corpuscular Volume 104.1 80-100 fL Mean Corpuscular Hemoglobin 37.0 25-34 pg Mean Corpuscular Hemoglobin Concent 35.5 32-36 g/dl Platelet Count 108 130-400 K/uL Mean Platelet Volume 10.2 7.4-10.4 fL Neutrophils (%) (Auto) 46.1 % Lymphocytes (%) (Auto) 38.8 % Monocytes (%) (Auto) 11.7 % Eosinophils (%) (Auto) 2.7 % Basophils (%) (Auto) 0.5 % Neutrophils # (Auto) 2.52 1.4-6.5 K/uL Lymphocytes # (Auto) 2.12 1.2-3.4 K/uL Monocytes # (Auto) 0.64 0.11-0.59 K/uL Eosinophils # (Auto) 0.15 0-0.5 K/uL Basophils # (Auto) 0.03 0-0.2 K/uL RDW Standard Deviation 56.3 36.4-46.3 fL RDW Coefficient of Variation 14.8 11.5-14.5 % Immature Granulocyte % (Auto) 0.2 % Immature Granulocyte # (Auto) 0.01 0.00-0.02 K/uL Prothrombin Time 12.3 9.0-12.0 SECONDS Prothromb Time International Ratio 1.1 0.9-1.1 Activated Partial Thromboplast Time 51.6 21.0-31.0 SECONDS Partial Thromboplastin Ratio 2.0 Sodium Level 149 136-145 mmol/L Potassium Level 3.3 3.5-5.1 mmol/L Chloride Level 118 98-107 mmol/L Carbon Dioxide Level 24 21-32 mmol/L Anion Gap 7.0 3-11 mmol/L Blood Urea Nitrogen 14 7-18 mg/dl Creatinine 0.58 0.60-1.20 mg/dl Estimated GFR () 124.6 Estimated GFR (Non- 107.5 BUN/Creatinine Ratio 23.3 10-20 Random Glucose 41 70-99 mg/dl Calcium Level 8.2 8.5-10.1 mg/dl Total Bilirubin 1.7 0.2-1 mg/dl Direct Bilirubin 0.6 0-0.2 mg/dl Aspartate Amino Transf (AST/SGOT) 56 15-37 U/L Alanine Aminotransferase (ALT/SGPT) 59 12-78 U/L Alkaline Phosphatase 205 45-117 U/L Ammonia 167.0 11-32 umol/L Troponin I < 0.015 0-0.045 ng/ml Total Protein 6.4 6.4-8.2 gm/dl Albumin 3.3 3.4-5.0 gm/dl Urine Color DK YELLOW Urine Appearance CLEAR CLEAR Urine pH 6.5 4.5-7.5 Urine Specific [place] 1.025 1.000-1.030 Urine Protein NEG NEG Urine Glucose (UA) NEG NEG Urine Ketones TRACE NEG Urine Occult Blood NEG NEG Urine Nitrite POS NEG Urine Bilirubin NEG NEG Urine Urobilinogen POS NEG Urine Leukocyte Esterase TRACE NEG Urine WBC (Auto) 1-5 0-5 /hpf Urine RBC (Auto) 0-4 0-4 /hpf Urine Hyaline Casts (Auto) 1-5 0-5 /lpf Urine Epithelial Cells (Auto) 10-20 0-5 /lpf Urine Bacteria (Auto) NEG NEG Diagnostic Radiology cxr: RUL infiltrate EKG my reading - sinus tach QTc about 500msec J-point elevation lead I in comparison to EKG 10/10/16 - QTc is slightly more prolonged Impression Assessment and Plan 50yo female with 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 1. altered mental status / encephalopathy - likely due to hepatic encephalopathy. Cannot r/o hypernatremia contributing and/or infectious causes. Treat the hepatic encephalopathy. Hydration for her hypernatremia. Treat for possible RUL pneumonia. Recheck bmp & ammonia in AM. 2. hepatic encephalopathy - patient cannot safely take her rifaximin or lactulose by mouth. Treat with lactulose enema tonight and re-eval in AM. Cause of hepatic encephalopathy - possible pneumonia vs dehydration vs noncompliance vs other. Place on telemetry. 3. hypernatremic dehydration - treat with hypotonic fluids and recheck BMP in am. 4. hypokalemia - supplement with KCL in her IVF; BMP in am. 5. hypoglycemia - 2nd to poor oral intake in the setting of insulin use. Resolved s/p amp D50. Hold all insulins. Check FSBS q6h. If the hypoglycemia persists then add dextrose to fluids. 6. seizure d/o - will convert keppra to 2000mg IV q12h. Hold other meds until able to take PO. Keppra level on 10/10/16 was acceptable. 7. abnormal LFTs - 2nd to cirrhosis - at baseline. 8. prolonged QTc interval - likely due to hypokalemia. Magnesium was normal. Correct the K and repeat the EKG tomorrow. 9. possible RUL pneumonia - blood cultures x 2 sets; aztreonam IV; check MRSA swab; consider repeat cxr in AM. Hold off on quinolone due to prolonged QTc. 10. DVT proph - heparin TID. 11. anemia/thrombocytopenia - 2nd to cirrhosis - at baseline. 12. FEN - NPO until able to take PO more safely. 1/2 NS with KCL at 100cc/hr. Repeat all labs in AM. 13. asthma - not in exacerbation. Duoneb prn. Symbicort BID. 14. hypothyroidism - recent TSH was acceptable. Cont synthroid but use IV form until able to take PO. 15. GERD - IV zantact for now. 16. T2DM - hold all insulins. See above. Will contact for additional information and to confirm code status. Level of Care Telemetry Advanced Directives Existing Advance Directive: No Resuscitation Status FULL RESUSCITATION VTE Prophylaxis Risk Level: Moderate Given or contraindicated: Unfractionated heparin SQ Note total time about 70 minutes Additional Copies To Mingo Lin M.D.
[2016-10-14 20:17] VITALS: BP 146/68; PULSE 75; TEMP 36.5; O2SAT 99; BMI 34.7
[2016-10-14] MEDS: RANITIDINE IV 50 MG in DEXTROSE 5% 100ML 100 ML IV SCH (20:51)
[2016-10-14] MEDS: SODIUM CHLOR 0.45% + 20MEQ KCL 1,000 ML IV SCH (20:51)
[2016-10-14] MEDS: AZTREONAM IV 1,000 MG in DEXTROSE 5% 100ML 100 ML IV SCH (20:51)
[2016-10-14] MEDS: BUDESONIDE/FORMOTEROL FUMARATE 160/4.5 60 PUFFS/INHALER INH SCH (20:52)
[2016-10-14] MEDS: HEPARIN SOD 5000 UNIT/0.5 ML CARP SQ SCH (20:53)
[2016-10-14] MEDS: LEVETIRACETAM IV 2,000 MG in DEXTROSE 5% 250ML 250 ML IV SCH (22:14)
[2016-10-15] VITALS (7 sets, daily range): BP systolic 123–146; BP diastolic 64–81; PULSE 66–85; TEMP 36.5–36.9; O2SAT 95–100; Ht 165.1 cm; Wt 110.0 kg
[2016-10-15] MEDS: AZTREONAM IV 1,000 MG in DEXTROSE 5% 100ML 100 ML IV SCH ×3 (03:46→20:01)
[2016-10-15] MEDS: RANITIDINE IV 50 MG in DEXTROSE 5% 100ML 100 ML IV SCH ×2 (03:46→12:02)
[2016-10-15 04:49] LABS: BUN/CREATININE RATIO 26.1 (10-20); CALCIUM 7.6 mg/dl (8.5-10.1); CREATININE 0.47 mg/dl (0.60-1.20); POTASSIUM 3.4 mmol/L (3.5-5.1)
[2016-10-15] MEDS: SODIUM CHLOR 0.45% + 20MEQ KCL 1,000 ML IV SCH ×2 (06:02→17:05)
[2016-10-15] MEDS: HEPARIN SOD 5000 UNIT/0.5 ML CARP SQ SCH ×3 (06:03→21:20)
[2016-10-15] MEDS: BUDESONIDE/FORMOTEROL FUMARATE 160/4.5 60 PUFFS/INHALER INH SCH ×3 (07:40→21:12)
[2016-10-15] MEDS: LEVETIRACETAM IV 2,000 MG in DEXTROSE 5% 250ML 250 ML IV SCH (07:40)
[2016-10-15] MEDS ORDERED: ALBUTEROL HFA 8 GM INHALER INH PRN (08:00)
[2016-10-15] MEDS ORDERED: EPINEPHRINE ADULT AUTO-INJECT 0.3 MG SYR IM PRN (08:00)
[2016-10-15] MEDS: MULTIVITAMIN TAB PO SCH (08:34)
[2016-10-15] MEDS: MAGNESIUM OXIDE 400 MG TAB PO SCH ×3 (08:34→21:08)
[2016-10-15] MEDS: LEVOTHYROXINE 75 MCG TAB PO SCH (08:41)
[2016-10-15] MEDS ORDERED: OXCARBAZEPINE 150 MG TAB PO SCH (09:00)
[2016-10-15] MEDS ORDERED: LEVOTHYROXINE SODIUM INJ 37.5 MCG in SYRINGE 0 ML IV SCH (09:00)
[2016-10-15] MEDS ORDERED: INSULIN GLARGINE SOLOSTAR 100 UNITS/ML 3 ML PEN SC SCH (09:00)
--- NOTE | 2016-10-15 09:40 | DIAGNOSTIC IMAGING REPORT ---
CHEST 2 VIEWS ROUTINE CLINICAL HISTORY: question of RUL pneumonia on 10/14 cx dyspnea COMPARISON STUDY: 10/14/2016 FINDINGS: Right upper lobe infiltrate versus partial right upper lobe atelectasis. Lungs otherwise appear clear. Diaphragms are smooth. IMPRESSION: Right upper lobe infiltrate versus atelectasis. No significant change from the prior study. The above report was generated using voice recognition software. It may contain grammatical, syntax or spelling errors. Electronically signed by: Kenroy Yates M.D. 10/15/2016 9:38 AM Dictated Date/Time: 10/15/2016 9:36 AM
[2016-10-15] MEDS: POTASSIUM CHLORIDE 20 MEQ TABCR PO SCH ×2 (10:00→21:06)
[2016-10-15] MEDS: PANTOprazole SOD 40 MG TAB PO SCH (10:00)
[2016-10-15] MEDS: CARBIDOPA/LEVODOPA 25/100MG EXT REL TAB PO SCH ×3 (10:01→21:09)
[2016-10-15] MEDS: RIFAXIMIN TAB 550 MG TAB PO SCH ×2 (10:02→21:08)
[2016-10-15] MEDS: LACTOBACILLUS ACIDOPHILUS (FLORANEX) TAB PO SCH ×2 (10:02→17:04)
[2016-10-15] MEDS: RANITIDINE HCL 150 MG TAB PO SCH ×2 (10:03→21:06)
[2016-10-15] MEDS: TOPIRAMATE 25 MG TAB PO SCH ×2 (10:03→21:07)
--- NOTE | 2016-10-15 10:32 | Medical Student: [facility] ---
Med Student Progress Note Date of Service Oct 15, 2016. Subjective Pt evaluation today including: conversation w/ patient Mrs. Munson is a 50 year old female with a PMH significant for cirrhosis 2/2 to STEVE, multiple hospitalizations for hepatic encephalopathy, T2DM, diabetic gastroparesis, bipolar disorder, depression, migraines, myelodysplastic syndrome , PUD, portal HTN, epilepsy, parkinsonism, and hypothyroidism who presented on with worsening mental status. According to the , her mental status was worsening since two nights ago. The last thing she remembers from yesterday was the car ride to her community service meeting. She does not recall being at the community service meeting however. At the meeting, others described that she was slow and her mental status was worsening. Her picked her up and she then came to the ER. Her took her blood sugar and it was 181 before coming to the ER. Today, the patient is much more alert and oriented. She is no longer sleepy and she is answering questions appropriately. She complains of chest pain and points to the middle of her sternum. She describes the pain as sharp/stabbing and tight. It is positional in nature and worsens when sitting up in bed. Additionally she is having a frontal headache. Otherwise, she currently denies SOB, cough, abdominal pain, diarrhea or constipation. She is having very frequent bowel movements however, most likely due to her lactulose enema last night. The patient does have a history of multiple hospitalizations for hepatic encephalopathy and seizures. Most recently, she was admitted to the hospital from September 27-September 28 for seizures. At the time her keppra was increased to 2000 mg BID and keppra level on 10/10/16 was 35. EEG on 10/[address] Frye indicated generalized epilepsy and moderate encephalopathy. Review of Systems Constitutional: No fever, No chills Eyes: No worsening of vision ENT: No hearing loss Respiratory: No cough, No sputum, No wheezing, No shortness of breath Cardiac: + chest pain, No edema, No palpitations Abdomen: No pain, No nausea, No vomiting, No diarrhea, No constipation Female : No dysuria Endo: No fatigue Skin: No rash, No itch Objective Vital Signs Date Time Temp Pulse Resp B/P (MAP) Pulse Ox O2 Delivery O2 Flow Rate FiO2 10/15/16 08:20 36.6 77 16 125/75 (92) 98 Room Air 10/15/16 04:00 Room Air 10/15/16 03:49 36.9 74 16 146/81 (102) 100 Room Air 10/15/16 00:05 36.8 85 22 125/76 (92) 100 Room Air 10/14/16 23:59 Room Air 10/14/16 20:17 36.5 75 16 146/68 99 Room Air 10/14/16 19:20 36.6 61 16 112/52 100 10/14/16 19:04 61 16 112/52 100 Room Air 10/14/16 18:10 72 16 139/86 100 Room Air 10/14/16 17:30 85 24 149/66 100 Room Air 10/14/16 16:26 101 10/14/16 16:25 36.6 97 20 159/74 98 Room Air CHEST ONE VIEW PORTABLE CLINICAL HISTORY: eval for pnea dyspnea COMPARISON STUDY: 05/06/2016 FINDINGS: Right upper lobe infiltrate. Lungs otherwise are clear. Mild stable cardia megaly. Central catheter in the superior vena cava. IMPRESSION: Right upper lobe infiltrate CHEST 2 VIEWS ROUTINE CLINICAL HISTORY: question of RUL pneumonia on 10/14 cx dyspnea COMPARISON STUDY: 10/14/2016 FINDINGS: Right upper lobe infiltrate versus partial right upper lobe atelectasis. Lungs otherwise appear clear. Diaphragms are smooth. IMPRESSION: Right upper lobe infiltrate versus atelectasis. No significant change from the prior study. 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, no motor/sensory deficits, oriented x 3 Skin: normal color, warm/dry Lymphatic: no adenopathy Laboratory Results Last 24 Hours Test 10/14/16 16:25 10/14/16 16:56 10/14/16 17:38 10/14/16 18:01 White Blood Count 5.47 K/uL Red Blood Count 3.19 M/uL Hemoglobin 11.8 g/dL Hematocrit 33.2 % Mean Corpuscular Volume 104.1 fL Mean Corpuscular Hemoglobin 37.0 pg Mean Corpuscular Hemoglobin Concent 35.5 g/dl Platelet Count 108 K/uL Mean Platelet Volume 10.2 fL Neutrophils (%) (Auto) 46.1 % Lymphocytes (%) (Auto) 38.8 % Monocytes (%) (Auto) 11.7 % Eosinophils (%) (Auto) 2.7 % Basophils (%) (Auto) 0.5 % Neutrophils # (Auto) 2.52 K/uL Lymphocytes # (Auto) 2.12 K/uL Monocytes # (Auto) 0.64 K/uL Eosinophils # (Auto) 0.15 K/uL Basophils # (Auto) 0.03 K/uL RDW Standard Deviation 56.3 fL RDW Coefficient of Variation 14.8 % Immature Granulocyte % (Auto) 0.2 % Immature Granulocyte # (Auto) 0.01 K/uL Prothrombin Time 12.3 SECONDS Prothromb Time International Ratio 1.1 Activated Partial Thromboplast Time 51.6 SECONDS Partial Thromboplastin Ratio 2.0 Sodium Level 149 mmol/L Potassium Level 3.3 mmol/L Chloride Level 118 mmol/L Carbon Dioxide Level 24 mmol/L Anion Gap 7.0 mmol/L Blood Urea Nitrogen 14 mg/dl Creatinine 0.58 mg/dl Estimated GFR () 124.6 Estimated GFR (Non- 107.5 BUN/Creatinine Ratio 23.3 Random Glucose 41 mg/dl Calcium Level 8.2 mg/dl Magnesium Level 1.9 mg/dl Total Bilirubin 1.7 mg/dl Direct Bilirubin 0.6 mg/dl Aspartate Amino Transf (AST/SGOT) 56 U/L Alanine Aminotransferase (ALT/SGPT) 59 U/L Alkaline Phosphatase 205 U/L Ammonia 167.0 umol/L Troponin I < 0.015 ng/ml Total Protein 6.4 gm/dl Albumin 3.3 gm/dl Urine Color DK YELLOW Urine Appearance CLEAR Urine pH 6.5 Urine Specific [place] 1.025 Urine Protein NEG Urine Glucose (UA) NEG Urine Ketones TRACE Urine Occult Blood NEG Urine Nitrite POS Urine Bilirubin NEG Urine Urobilinogen POS Urine Leukocyte Esterase TRACE Urine WBC (Auto) 1-5 /hpf Urine RBC (Auto) 0-4 /hpf Urine Hyaline Casts (Auto) 1-5 /lpf Urine Epithelial Cells (Auto) 10-20 /lpf Urine Bacteria (Auto) NEG Bedside Glucose 212 mg/dl 192 mg/dl Test 10/14/16 19:08 10/14/16 20:51 10/15/16 00:02 10/15/16 04:19 Bedside Glucose 129 mg/dl 135 mg/dl 220 mg/dl Sodium Level 147 mmol/L Potassium Level 3.4 mmol/L Chloride Level 116 mmol/L Carbon Dioxide Level 24 mmol/L Anion Gap 7.0 mmol/L Blood Urea Nitrogen 12 mg/dl Creatinine 0.47 mg/dl Est Creatinine Clear Calc Drug Dose 162.8 ml/min Estimated GFR () 133.5 Estimated GFR (Non- 115.2 BUN/Creatinine Ratio 26.1 Random Glucose 161 mg/dl Calcium Level 7.6 mg/dl Ammonia 53.0 umol/L Test 10/15/16 06:04 Bedside Glucose 144 mg/dl Assessment and Plan Assessment and Plan: Assessment: Mrs. 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 The patient was afebrile and had no leukocytosis on admission. CXR showed a RUL consolidation however. Ammonia level was found to be 167 and blood glucose 40. She was given a lactulose enema and an amp of D50. Additionally, LFTs were elevated consistent with her h/o cirrhosis. T bili was 1.7, D bili was 0.6, AST was 56, and Alk phos was 205. The patient was also found to be hypernatremic at 149 and hypokalemic at 3.3. EKG showed a prolonged QTc of 523. Mg was normal at 1.9. The patient is currently being managed acutely for a healthcare associated pneumonia, hepatic encephalopathy, and hypernatremia. Plan: Altered mental status - most attributable to hepatic encephalopathy (NH3 167 yesterday, possibly medication noncompliance and/or infectious pneumonia process exacerbating encephalopathy). Also likely attributable to hypernatremia (149 on admission) and hypoglycemia (41 on admission) -improving since yesterday, patient is alert & oriented today -treated hepatic encephalopathy with lactulose enema last night, NH3 downtrended to 53 today -treat hypernatremia as below -treat PA as below -treat cirrhosis as below -recheck BMP AM cirrhosis 2/2 to STEVE - abnormal LFTs (t bili 1.7, d bili 0.6, AST 56, and Alk phos 205 on admission) & anemic (hgb 11.8) and thrombocytopenia (108) on admission -continue lactulose 20 gm PO BID -continue Rifaximin 550mg PO BID Parkinsonism - recent hospital admission for tremors, neurology diagnosed parkinsonism -continue Sinemet 0.5 mg TID Hypernatremia - likely d/t dehydration and hepatic encephalopathy suppressing thirst mechanism. Na on admission 149, Na today 147.Corrected sodium today however is 149 based on hyperglycemia of 220. -continue NS 1000 cc @ 100cc/hr -recheck BMP AM Hypokalemia - 3.3 on admission, 3.4 today -continue KCl/NS 1000 cc @ 100cc/hr -continue KCL 20 meq BID -recheck BMP AM Generalized epilepsy - most recent EEC 10/03 indicated generalized epilepsy with moderate encephalopathy -continue IV Keppra 2000 mg PO BID -continue Topiramate 50 mg PO BID -continue Oxcarbazepine 600 mg PO BID RUL PA -continue Aztreonam 1000 mg IV q8hr -possibility for aspiration pneumonia, aztreonam does not cover anaerobes, consider adding clindamycin if clinical status does not improve Asthma -continue DuoNeb PRN -continue Symbicort BID Hypothyroidism -continue Synthroid 75 mcg PO qAM GERD -continue Omeprazole 20 mg PO qAM T2DM -continue aspart and glargine DVT prophylaxis: heparin 5000 units q8hr Attending Attestation: Pt seen/examined and care plan d/w MSSophia Sibley Vanessaberto. I agree with her documentation as written. Nice, comprehensive note with good plan of care. Sammy Haney MD
[2016-10-15] MEDS ORDERED: KETOROLAC TROMETHAMINE 30 MG/ML VIAL IV SCH (11:30)
[2016-10-15] MEDS: INSULIN ASPART 100 UNITS/ML 3 ML PEN SC SCH ×3 (11:51→21:20)
[2016-10-15] MEDS: LACTULOSE SYRUP 20 GM/30 ML UDC PO SCH ×2 (11:56→21:00)
--- NOTE | 2016-10-15 12:03 | Clinical Documentation Query ---
CLINICAL DOCUMENTATION QUERY Dr. VILCHIS, In your clinical opinion is this patient being managed for: ( x ) possible Metabolic encephalopathy in the setting of hypoglycemia and hypernatremia in addition to acute hepatic encephalopathy, causing mental status changes ( ) Other explanation of clinical findings (Please Explain) ( ) Unable to determine (Please Define) ( ) Need to Discuss ( ) Not Agree The medical record reflects the following clinical findings, treatment, and risk factors. Clinical Indicators:50 yo female presenting with altered mental status and diagnosed with hepatic encephalopathy. Pt was also hypoglycemic (random glucose 41) and hypernatremic (Na 149). Pt was given 1 amp D50 and had modest improvement in her mental status. Treatment: 1 amp D50, tele monitoring, IV fluids, monitor BMP along with ammonia levels, hold insulin at present, FSBS q 6 hrs Risk Factors: hypoglycemia, hypernatremia Please clarify and document your clinical opinion in the progress notes and discharge summary. Terms such as "probable", "suspected", "likely", "questionable", "possible", or "still to be ruled out" are acceptable. IF IN AGREEMENT, YOU MUST DOCUMENT ABOVE DIAGNOSTIC STATEMENT IN DAILY PROGRESS NOTES AND DISCHARGE SUMMARY. This document is not part of the patient's record. Thank You, Andree Young, SAMANTHA [phone]
[2016-10-15] MEDS: FERROUS SULFATE 325 MG TAB PO SCH (21:07)
[2016-10-15] MEDS: MIRTAZAPINE TAB 15 MG TAB PO SCH (21:09)
[2016-10-15] MEDS: TRILEPTAL PO SCH (21:14)
[2016-10-15] MEDS: LEVETIRACETAM 1000 MG PO SCH (21:21)
[2016-10-16] VITALS: O2SAT 97
[2016-10-16 00:05] VITALS: BP 151/79; PULSE 72; TEMP 36.8; O2SAT 96
--- NOTE | 2016-10-16 00:23 | Progress Note ---
Subjective Date of Service: Oct 15, 2016. Subjective Pt evaluation today including: conversation w/ patient, physical exam, chart review, lab review, review of studies (ekg, cxr), review of inpatient medication list Pain: chest pain - worse with movements, slightly with taking deep breaths PO Intake: fair Voiding: no voiding problems tele stable overnight pt reports chest wall pain for 3 days hurts with movement NOT worse with laying flat in bed slightly pleuritic mainly over upper central chest area had cough a few days ago - now improved NUMEROUS bowel movements overnight overall feels better Problem List Medical Problems: (1) Acute bronchitis Status: Acute (2) Acute hepatic encephalopathy Status: Acute (3) Alkaline phosphatase elevation Status: Acute (4) Anemia Status: Acute (5) Back pain Status: Acute (6) Bradycardia Status: Acute (7) Breakthrough seizure Status: Acute (8) Burn Status: Acute (9) Change in mental status Status: Acute (10) Change in mental status Status: Acute (11) Chronic low back pain Status: Acute (12) Closed head injury Status: Acute (13) Dehydration Status: Acute (14) Dizziness Status: Acute (15) Facial laceration Status: Acute (16) Fall Status: Acute (17) Fall Status: Acute (18) Fatigue Status: Acute (19) Hemorrhoid Status: Acute (20) Hepatic encephalopathy Status: Acute (21) Hepatic encephalopathy Status: Acute (22) Hepatic encephalopathy Status: Acute (23) Hepatic encephalopathy Status: Acute (24) Hepatic encephalopathy Status: Acute (25) Hepatic encephalopathy Status: Acute (26) Hepatic encephalopathy Status: Acute (27) Hepatic encephalopathy Status: Acute (28) Hyperammonemia Status: Acute (29) Hyperammonemia Status: Acute (30) Hyperammonemia Status: Acute (31) Hyperammonemia Status: Acute (32) Hypocalcemia Status: Acute (33) Hypocalcemia Status: Acute (34) Hypoglycemia Status: Acute (35) Hypokalemia Status: Acute (36) Hypomagnesemia Status: Acute (37) Increased ammonia level Status: Acute (38) Left foot pain Status: Acute (39) Leukopenia Status: Acute (40) Low back pain Status: Acute (41) Pain in pelvis Status: Acute (42) Pancytopenia Status: Acute (43) Right ear pain Status: Acute (44) Right groin pain Status: Acute (45) Right hip pain Status: Acute (46) Right upper lobe pneumonia Status: Acute (47) RUQ abdominal pain Status: Acute (48) Thrombocytopenia Status: Acute (49) Weakness Status: Acute (50) Weakness Status: Acute (51) Weakness Status: Acute (52) Weakness Status: Acute Review of Systems Constitutional: No fever, No chills Respiratory: No cough, No sputum, No wheezing, No dyspnea at rest Cardiac: + see HPI, + chest pain, No orthopnea, No PND, No edema Abdomen: No pain Objective Vital Signs Date Time Temp Pulse Resp B/P (MAP) Pulse Ox O2 Delivery O2 Flow Rate FiO2 10/15/16 20:00 97 Room Air 10/15/16 18:15 36.9 81 20 123/78 (93) 97 Room Air 10/15/16 16:00 Room Air 10/15/16 15:28 36.5 75 20 141/80 (100) 100 Room Air 10/15/16 12:38 Room Air 10/15/16 11:32 36.9 66 18 129/64 (85) 95 10/15/16 08:20 36.6 77 16 125/75 (92) 98 Room Air 10/15/16 08:00 Room Air 10/15/16 04:00 Room Air 10/15/16 03:49 36.9 74 16 146/81 (102) 100 Room Air 10/15/16 00:05 36.8 85 22 125/76 (92) 100 Room Air 10/14/16 23:59 Room Air Physical Exam General Appearance: no apparent distress, + pertinent finding (looks markedly better today - awake, alert) ENT: pharynx normal (MM more moist today) Neck: no JVD Respiratory/Chest: lungs clear, no respiratory distress, no accessory muscle use, + pertinent finding (chest - tender to palpation in multiple locations on chest wall ) Cardiovascular: regular rate, rhythm, no gallop, no murmur Abdomen: normal bowel sounds, non tender, soft, no organomegaly Extremities: no pedal edema Neurologic/Psychiatric: alert, oriented x 3 Skin: + pertinent finding (port upper chest clean) Laboratory Results Last 24 Hours Test 10/15/16 00:02 10/15/16 04:19 10/15/16 06:04 10/15/16 11:47 Bedside Glucose 220 mg/dl 144 mg/dl 178 mg/dl Sodium Level 147 mmol/L Potassium Level 3.4 mmol/L Chloride Level 116 mmol/L Carbon Dioxide Level 24 mmol/L Anion Gap 7.0 mmol/L Blood Urea Nitrogen 12 mg/dl Creatinine 0.47 mg/dl Est Creatinine Clear Calc Drug Dose 162.8 ml/min Estimated GFR () 133.5 Estimated GFR (Non- 115.2 BUN/Creatinine Ratio 26.1 Random Glucose 161 mg/dl Calcium Level 7.6 mg/dl Ammonia 53.0 umol/L Test 10/15/16 16:16 10/15/16 20:58 Bedside Glucose 154 mg/dl 215 mg/dl Assessment and Plan 50yo female with 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 1. encephalopathy - 2nd to #2 - markedly improved. 2. hepatic encephalopathy - much improved s/p lactulose enema overnight. Resumed oral lactulose and rifaximin. Titrate for 2-3 bms/day. Hepatic encephalopathy possibly due to RUL pneumonia. 3. hypernatremic dehydration - improving with hypotonic fluids. BMP in am. 4. hypokalemia - improving with IV and oral K supplementation. Cont such, repeat BMP am. 5. hypoglycemia - resolved; has not recurred. 6. seizure d/o - convert IV to PO keppra at 2000mg BID. 7. abnormal LFTs - 2nd to cirrhosis - at baseline. 8. prolonged QTc interval - EKG checked today and QTc improved. Was likely due to hypokalemia. 9. RUL pneumonia - clinically stable. repeat cxr today does in fact show persistent RUL infiltrate. she is stable on aztreonam to cover for possible gram neg etiology. MRSA swab neg; defer on MRSA coverage. defer on levaquin due to prolonged QTc. 10. DVT proph - heparin TID. 11. anemia/thrombocytopenia - 2nd to cirrhosis - at baseline. Repeat CBC in am. 12. FEN - allow DM diet; repeat labs in am; Na improving. 13. asthma - not in exacerbation. Duoneb prn. Symbicort BID. 14. hypothyroidism - recent TSH was acceptable. Cont synthroid. 15. GERD - zantac. 16. T2DM - control acceptable. Pt prefers her trujeo. Will order for tomorrow am. gave lantus 15 units this am. cont novolog. 17. chest pain - had such for 3 days prior to admission. Suspect musculoskeletal vs from her pneumonia. Doubt cardiac. Troponin yesterday pm was negative despite the 3 days of pain. Pain is completely reproducible on exam and EKG does not show ST changes. Toradol 30mg x 1 for pain. ok to d/c telemetry move to med/surg PT, OT left message for 10/15. Continued [facility] stay due to: ambulation difficulties, multiple IV medications needed Discharge planning: home with home health
[2016-10-16] MEDS: SODIUM CHLOR 0.45% + 20MEQ KCL 1,000 ML IV SCH (02:08)
[2016-10-16] MEDS: AZTREONAM IV 1,000 MG in DEXTROSE 5% 100ML 100 ML IV SCH ×3 (03:37→20:39)
[2016-10-16] MEDS: HEPARIN SOD 5000 UNIT/0.5 ML CARP SQ SCH ×3 (05:13→20:44)
[2016-10-16] MEDS: LEVOTHYROXINE 75 MCG TAB PO SCH (05:15)
[2016-10-16 05:51] LABS: MEAN CELL VOLUME 101.6 fL (80-100); MEAN CORPUSCULAR HEMOGLOBIN 37.1 pg (25-34); MEAN CORPUSCULAR HGB CONC 36.5 g/dl (32-36); RED BLOOD COUNT 2.56 M/uL (4.2-5.4); WHITE BLOOD COUNT 3.28 K/uL (4.8-10.8)
[2016-10-16 05:54] LABS: MEAN PLATELET VOLUME 9.9 fL (7.4-10.4); PLATELET COUNT 71 K/uL (130-400)
[2016-10-16 06:10] LABS: PARTIAL THROMBOPLASTIN RATIO 1.4
[2016-10-16 06:29] LABS: BUN/CREATININE RATIO 20.7 (10-20); CALCIUM 7.8 mg/dl (8.5-10.1); CREATININE 0.45 mg/dl (0.60-1.20); POTASSIUM 4.2 mmol/L (3.5-5.1)
[2016-10-16 07:53] VITALS: BP 159/77; PULSE 84; TEMP 36.9; O2SAT 97
[2016-10-16] MEDS: BUDESONIDE/FORMOTEROL FUMARATE 160/4.5 60 PUFFS/INHALER INH SCH ×2 (09:00→20:45)
[2016-10-16] MEDS: RANITIDINE HCL 150 MG TAB PO SCH ×2 (09:06→20:34)
[2016-10-16] MEDS: PANTOprazole SOD 40 MG TAB PO SCH (09:06)
[2016-10-16] MEDS: MAGNESIUM OXIDE 400 MG TAB PO SCH ×3 (09:06→20:32)
[2016-10-16] MEDS: LACTULOSE SYRUP 20 GM/30 ML UDC PO SCH ×2 (09:07→20:30)
[2016-10-16] MEDS: CARBIDOPA/LEVODOPA 25/100MG EXT REL TAB PO SCH ×3 (09:07→20:31)
[2016-10-16] MEDS: MULTIVITAMIN TAB PO SCH (09:09)
[2016-10-16] MEDS: LACTOBACILLUS ACIDOPHILUS (FLORANEX) TAB PO SCH ×3 (09:09→16:46)
[2016-10-16] MEDS: TOPIRAMATE 25 MG TAB PO SCH ×2 (09:10→20:33)
[2016-10-16] MEDS: POTASSIUM CHLORIDE 20 MEQ TABCR PO SCH ×2 (09:10→20:32)
[2016-10-16] MEDS: RIFAXIMIN TAB 550 MG TAB PO SCH ×2 (09:10→20:33)
[2016-10-16] MEDS: DESVENLAFAXINE SUCCINATE 50 MG TABCR PO SCH (09:11)
[2016-10-16] MEDS: LEVETIRACETAM 1000 MG PO SCH ×2 (09:11→20:35)
[2016-10-16] MEDS: TRILEPTAL PO SCH ×3 (09:12→20:36)
[2016-10-16] MEDS: INSULIN ASPART 100 UNITS/ML 3 ML PEN SC SCH ×4 (09:22→21:04)
[2016-10-16] MEDS: INSULIN GLARGINE 300 UNITS/ML INJ SC SCH (09:22)
--- NOTE | 2016-10-16 14:58 | Medical Student: [facility] ---
Med Student Progress Note Date of Service Oct 16, 2016. Subjective No acute events overnight. Patient was very somnolent when I visited her this morning. She denied NAVA, chest pain, SOB, and abdominal pain. She is having multiple BMs per day. When seeing her again in the afternoon, the patient was extremely somnolent. She was seated in her car with her head down and drooling. She was not oriented to year and she exhibited lip smacking. She also had a slight b/l tremor of her hands. Her status then changed dramatically during the visit. She instantly became more alert and oriented. She knew the year, who her neurologist was, and her dosage of seizure medications. She continues to be incontinence of urine and stool. EKG is normal sinus rhythm. Review of Systems Constitutional: No fever, No chills, No weight loss Eyes: No worsening of vision ENT: No hearing loss Respiratory: No cough, No sputum, No shortness of breath Cardiac: No chest pain, No edema, No palpitations Abdomen: No pain, No nausea, No vomiting, No diarrhea, No constipation Female : No dysuria Endo: + fatigue Skin: No rash, No itch Objective Vital Signs Date Time Temp Pulse Resp B/P (MAP) Pulse Ox O2 Delivery O2 Flow Rate FiO2 10/16/16 08:00 Room Air 10/16/16 07:53 36.9 84 16 159/77 (104) 97 Room Air 10/16/16 00:05 36.8 72 20 151/79 (103) 96 Room Air 10/16/16 00:00 97 Room Air 10/15/16 20:00 97 Room Air 10/15/16 18:15 36.9 81 20 123/78 (93) 97 Room Air 10/15/16 16:00 Room Air 10/15/16 15:28 36.5 75 20 141/80 (100) 100 Room Air Physical Exam General Appearance: WD/WN, no apparent distress Eyes: bilateral eyes normal inspection, bilateral eyes PERRL, bilateral eyes EOMI ENT: normal ENT inspection, hearing grossly normal Neck: supple, no adenopathy, thyroid normal Respiratory/Chest: lungs clear, normal breath sounds, no respiratory distress Cardiovascular: regular rate, rhythm, no edema, no gallop, no JVD, no murmur Abdomen: normal bowel sounds, non tender, soft, no organomegaly Extremities: non-tender, no calf tenderness, + pedal edema (1 + b/l ) Neurologic/Psychiatric: retort engineer II-XII nml as tested, no motor/sensory deficits Skin: warm/dry, no rash Laboratory Results Last 24 Hours Test 10/15/16 16:16 10/15/16 20:58 10/16/16 05:31 10/16/16 07:42 Bedside Glucose 154 mg/dl 215 mg/dl 128 mg/dl White Blood Count 3.28 K/uL Red Blood Count 2.56 M/uL Hemoglobin 9.5 g/dL Hematocrit 26.0 % Mean Corpuscular Volume 101.6 fL Mean Corpuscular Hemoglobin 37.1 pg Mean Corpuscular Hemoglobin Concent 36.5 g/dl RDW Standard Deviation 52.5 fL RDW Coefficient of Variation 14.2 % Platelet Count 71 K/uL Mean Platelet Volume 9.9 fL Activated Partial Thromboplast Time 35.9 SECONDS Partial Thromboplastin Ratio 1.4 Sodium Level 141 mmol/L Potassium Level 4.2 mmol/L Chloride Level 111 mmol/L Carbon Dioxide Level 23 mmol/L Anion Gap 7.0 mmol/L Blood Urea Nitrogen 9 mg/dl Creatinine 0.45 mg/dl Est Creatinine Clear Calc Drug Dose 188.4 ml/min Estimated GFR () 135.4 Estimated GFR (Non- 116.8 BUN/Creatinine Ratio 20.7 Random Glucose 126 mg/dl Calcium Level 7.8 mg/dl Test 10/16/16 11:26 10/16/16 14:46 Bedside Glucose 214 mg/dl Assessment and Plan Assessment and Plan: Assessment: Mrs. 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 The patient was afebrile and had no leukocytosis on admission. CXR showed a RUL consolidation however. Ammonia level was found to be 167 and blood glucose 40. She was given a lactulose enema and an amp of D50. Additionally, LFTs were elevated consistent with her h/o cirrhosis. T bili was 1.7, D bili was 0.6, AST was 56, and Alk phos was 205. The patient was also found to be hypernatremic at 149 and hypokalemic at 3.3. EKG showed a prolonged QTc of 523. Mg was normal at 1.9. The patient is currently being managed acutely for a healthcare associated pneumonia, hepatic encephalopathy, and hypernatremia. Altered mental status is worsened today and is waxing and waning. Pseudoseizures vs seizure was considered Plan: Altered mental status - most attributable to hepatic encephalopathy (NH3 167 yesterday, possibly medication noncompliance and/or infectious pneumonia process exacerbating encephalopathy). Also likely attributable to hypernatremia (149 on admission) and hypoglycemia (41 on admission). Mental status worsening today and is waxing and waning. Considered pseudoseizure vs seizure -increase Trileptal to 600 mg TID, last Trileptal level 15.3 on 09/26, check Trileptal level in 1-2 days -treated hepatic encephalopathy with lactulose enema, NH3 downtrended to 53 -hypernatremia is resolved -treat PA as below -treat cirrhosis as below -recheck BMP AM cirrhosis 2/2 to STEVE - abnormal LFTs (t bili 1.7, d bili 0.6, AST 56, and Alk phos 205 on admission) & anemic (hgb 9.5) and thrombocytopenic (71) & leukopenic (3.28) -continue lactulose 20 gm PO BID -continue Rifaximin 550mg PO BID Parkinsonism - recent hospital admission for tremors, neurology diagnosed parkinsonism -continue Sinemet 0.5 mg TID Hypernatremia - likely d/t dehydration and hepatic encephalopathy suppressing thirst mechanism. Na on admission 149, Na today 141. Hypernatremia resolved -d/c IVF -recheck BMP AM Hypokalemia - 3.3 on admission, 4.2 today -continue KCL 20 meq BID -recheck BMP AM Generalized epilepsy - [place] [facility] generalized epilepsy with moderate encephalopathy -continue IV Keppra 2000 mg PO BID -continue Topiramate 50 mg PO BID -continue Oxcarbazepine 600 mg PO BID RUL PA -continue Aztreonam 1000 mg IV q8hr -possibility for aspiration pneumonia, aztreonam does not cover anaerobes, consider adding clindamycin if clinical status does not improve Asthma -continue DuoNeb PRN -continue Symbicort BID Hypothyroidism -continue Synthroid 75 mcg PO qAM GERD -continue ranitidine 150 mg PO BID T2DM -continue aspart and glargine Depression -continue Mirtazapine 15 mg PO daily -continue desvenlafaxine 50 mg PO daily DVT prophylaxis: heparin 5000 units q8hr Attending Attestation: Pt seen/examined, chart reviewed, and care plan d/w MS4 Maryjo Lerma. I agree w/ the tai components of her documentation. Again very comprehensive note and plan of care. Sammy Haney MD Continued [facility] stay due to: ambulation difficulties, multiple IV medications needed Discharge planning: home with home health
[2016-10-16 15:42] LABS: VEN BLD GAS O2 SATURATION 82.1 %; VEN BLOOD GAS BASE EXCESS -2.7 mmol/L
[2016-10-16 16:12] LABS: MAGNESIUM 1.8 mg/dl (1.8-2.4)
[2016-10-16 16:13] VITALS: BP 151/83; PULSE 92; TEMP 36.8; O2SAT 100
[2016-10-16] MEDS: FERROUS SULFATE 325 MG TAB PO SCH (20:30)
[2016-10-16] MEDS: MIRTAZAPINE TAB 15 MG TAB PO SCH (20:34)
--- NOTE | 2016-10-16 21:31 | Progress Note ---
Subjective Date of Service: Oct 16, 2016. Subjective Pt evaluation today including: conversation w/ patient, physical exam, chart review, lab review, review of studies (EKG), conversation w/ [employer] consultant ( neurology - Dr. Frye), review of inpatient medication list Pain: no chest pain, back pain, or abd pain PO Intake: ate poorly at lunch, then 100% of dinner was consumed Voiding: incontinence staff report waxing/waning of mental status today she has had episodes of being very lethargic then will suddenly awaken during my bedside rounds today I found the patient sitting in her chair with her head slouched forward she responded to her name being called but could only give slurry, one-word answers I then noticed what appeared to be lip-smacking and drooling within 1-2 minutes she suddenly woke up and was very awake/alert/oriented x 3 when she was awake she could answer all questions with fluent speech (she knew the doses of her meds, could name her primary neurologist, etc) no obvious seizure activity noted by staff today patient denies cough, sob, chest pain, abd pain 3-4 large BMs noted by staff today Problem List Medical Problems: (1) Acute bronchitis Status: Acute (2) Acute hepatic encephalopathy Status: Acute (3) Alkaline phosphatase elevation Status: Acute (4) Anemia Status: Acute (5) Back pain Status: Acute (6) Bradycardia Status: Acute (7) Breakthrough seizure Status: Acute (8) Burn Status: Acute (9) Change in mental status Status: Acute (10) Change in mental status Status: Acute (11) Chronic low back pain Status: Acute (12) Closed head injury Status: Acute (13) Dehydration Status: Acute (14) Dizziness Status: Acute (15) Facial laceration Status: Acute (16) Fall Status: Acute (17) Fall Status: Acute (18) Fatigue Status: Acute (19) Hemorrhoid Status: Acute (20) Hepatic encephalopathy Status: Acute (21) Hepatic encephalopathy Status: Acute (22) Hepatic encephalopathy Status: Acute (23) Hepatic encephalopathy Status: Acute (24) Hepatic encephalopathy Status: Acute (25) Hepatic encephalopathy Status: Acute (26) Hepatic encephalopathy Status: Acute (27) Hepatic encephalopathy Status: Acute (28) Hyperammonemia Status: Acute (29) Hyperammonemia Status: Acute (30) Hyperammonemia Status: Acute (31) Hyperammonemia Status: Acute (32) Hypocalcemia Status: Acute (33) Hypocalcemia Status: Acute (34) Hypoglycemia Status: Acute (35) Hypokalemia Status: Acute (36) Hypomagnesemia Status: Acute (37) Increased ammonia level Status: Acute (38) Left foot pain Status: Acute (39) Leukopenia Status: Acute (40) Low back pain Status: Acute (41) Pain in pelvis Status: Acute (42) Pancytopenia Status: Acute (43) Right ear pain Status: Acute (44) Right groin pain Status: Acute (45) Right hip pain Status: Acute (46) Right upper lobe pneumonia Status: Acute (47) RUQ abdominal pain Status: Acute (48) Thrombocytopenia Status: Acute (49) Weakness Status: Acute (50) Weakness Status: Acute (51) Weakness Status: Acute (52) Weakness Status: Acute Review of Systems Constitutional: No fever, No chills Respiratory: No shortness of breath Cardiac: No chest pain Abdomen: No pain Neurologic: + problem reported (denies headaches), No paralysis, No numbness/ tingling, No vertigo Objective Vital Signs Date Time Temp Pulse Resp B/P (MAP) Pulse Ox O2 Delivery O2 Flow Rate FiO2 10/16/16 16:13 36.8 92 18 151/83 (105) 100 Room Air 10/16/16 16:00 Room Air 10/16/16 08:00 Room Air 10/16/16 07:53 36.9 84 16 159/77 (104) 97 Room Air 10/16/16 00:05 36.8 72 20 151/79 (103) 96 Room Air 10/16/16 00:00 97 Room Air Physical Exam General Appearance: no apparent distress, + pertinent finding (initially quite lethargic (see HPI), then suddenly awoke and was quite lucid) ENT: pharynx normal Neck: no JVD Respiratory/Chest: lungs clear, no respiratory distress, no accessory muscle use Cardiovascular: regular rate, rhythm, no gallop, no murmur Abdomen: normal bowel sounds, non tender, soft, no organomegaly Extremities: no pedal edema Neurologic/Psychiatric: alert, oriented x 3, + pertinent finding (strength 5/5 b/l upper & lower extremities; no facial droop and normal speech ) Laboratory Results Last 24 Hours Test 10/16/16 05:31 10/16/16 07:42 10/16/16 11:26 10/16/16 14:47 White Blood Count 3.28 K/uL Red Blood Count 2.56 M/uL Hemoglobin 9.5 g/dL Hematocrit 26.0 % Mean Corpuscular Volume 101.6 fL Mean Corpuscular Hemoglobin 37.1 pg Mean Corpuscular Hemoglobin Concent 36.5 g/dl RDW Standard Deviation 52.5 fL RDW Coefficient of Variation 14.2 % Platelet Count 71 K/uL Mean Platelet Volume 9.9 fL Activated Partial Thromboplast Time 35.9 SECONDS Partial Thromboplastin Ratio 1.4 Sodium Level 141 mmol/L Potassium Level 4.2 mmol/L Chloride Level 111 mmol/L Carbon Dioxide Level 23 mmol/L Anion Gap 7.0 mmol/L Blood Urea Nitrogen 9 mg/dl Creatinine 0.45 mg/dl Est Creatinine Clear Calc Drug Dose 188.4 ml/min Estimated GFR () 135.4 Estimated GFR (Non- 116.8 BUN/Creatinine Ratio 20.7 Random Glucose 126 mg/dl Calcium Level 7.8 mg/dl Bedside Glucose 128 mg/dl 214 mg/dl 197 mg/dl Test 10/16/16 15:25 10/16/16 17:09 10/16/16 21:01 Venous Blood pH 7.40 Venous Blood Partial Pressure CO2 36 mmHg Venous Blood Partial Pressure O2 49 mmHg Venous Blood HCO3 22 mmol/L Venous Blood Oxygen Saturation 82.1 % Venous Blood Base Excess -2.7 mmol/L Magnesium Level 1.8 mg/dl Ammonia 106.0 umol/L Troponin I < 0.015 ng/ml Bedside Glucose 145 mg/dl 244 mg/dl Assessment and Plan 50yo female with 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 1. encephalopathy - 2nd to #2 - was markedly improved yesterday, then waxed/ waned today - see below in #6. Thought to be from hepatic encephalopathy, metabolic causes, and/or potentially seizure events. 2. hepatic encephalopathy - although ammonia level today is higher than previous, her baseline ammonia level seems to run about 80-100. Her rapid cycling between lethargy and being completely alert & at baseline is not typical for hepatic encephalopathy (see discussion below). She is having 3-4 bowel movements/day on lactulose BID. Continue lactulose + rifaximin. 3. hypernatremic dehydration - resolved; stop fluids. 4. hypokalemia - resolved; cut K-dur supplementation from BID to daily dosing. 5. hypoglycemia - resolved; has not recurred. 6. seizure d/o - the patient had a recent EEG in early September c/w seizures. Her keppra dose was increased to 2000mg BID at that time due to concern of breakthrough seizures. The behavior I saw earlier today could be c/w seizure especially a complex partial seizure (lip smacking, altered MS, etc). Pseudoseizure is not excluded, however. We spoke with Dr. Frye who recommended increasing her trileptal from BID dosing to TID and checking level in 48 hours. Cont gabapentin. Consider formal neurological evaluation. Her blood sugar was NORMAL at the time of the event today. Consider head imaging if spells continue. 7. abnormal LFTs - 2nd to cirrhosis - at baseline. 8. prolonged QTc interval - EKG checked today right after my visit with the patient and QTc is now normal. No ST changes. Troponin negative today as well. I don't suspect any cardiac issue causing her waxing/waning mental status today. 9. RUL pneumonia - clinically stable. she is stable on aztreonam to cover for possible gram neg etiology. MRSA swab neg; defer on MRSA coverage. since QTc on EKG is now normal can likely transition to PO levaquin on 10/17/16. 10. DVT proph - heparin TID. 11. anemia/thrombocytopenia - 2nd to cirrhosis - at baseline. Repeat CBC today acceptable. 12. FEN - Na and K now normal. Eating decently. Stop fluids. 13. asthma - not in exacerbation. Duoneb prn. Symbicort BID. 14. hypothyroidism - recent TSH was acceptable. Cont synthroid. 15. GERD - zantac. 16. T2DM - control acceptable. Pt prefers her trujeo from home and using such at 15 units qam with normal AM sugars. Increase novolog carb ratio and correction. We have been concerned on prior hospital stays that she takes too much insulin at her home and/or does not manage it well. 17. recent chest pain - had such for 3 days prior to admission. Suspect musculoskeletal vs from her pneumonia. Doubt cardiac. Multiple troponins negative. Pain was completely reproducible on exam earlier in this hospital stay. Follow. PT, OT left message for 10/14 and 10/15 once neuropsych status is stable can likely d/c home with she has been in SNF in the past, and although this is probably her best option, both she and her prefer home with HH Continued [facility] stay due to: ambulation difficulties, multiple IV medications needed, other (waxing/waning mental status - cause??) Discharge planning: home with home health
[2016-10-17 00:03] VITALS: BP 145/82; PULSE 87; TEMP 36.8; O2SAT 97
[2016-10-17] MEDS: AZTREONAM IV 1,000 MG in DEXTROSE 5% 100ML 100 ML IV SCH ×3 (03:55→20:53)
[2016-10-17 05:36] LABS: HEMATOCRIT 26.2 % (37-47); MEAN CELL VOLUME 102.3 fL (80-100); MEAN CORPUSCULAR HEMOGLOBIN 37.1 pg (25-34); MEAN CORPUSCULAR HGB CONC 36.3 g/dl (32-36); RED BLOOD COUNT 2.56 M/uL (4.2-5.4); WHITE BLOOD COUNT 3.08 K/uL (4.8-10.8)
[2016-10-17 05:46] LABS: MEAN PLATELET VOLUME 9.9 fL (7.4-10.4); PLATELET COUNT 85 K/uL (130-400)
[2016-10-17] MEDS: LEVOTHYROXINE 75 MCG TAB PO SCH (05:54)
[2016-10-17 05:58] LABS: BUN/CREATININE RATIO 15.8 (10-20); CALCIUM 7.8 mg/dl (8.5-10.1); CREATININE 0.47 mg/dl (0.60-1.20); POTASSIUM 3.8 mmol/L (3.5-5.1)
[2016-10-17] MEDS: HEPARIN SOD 5000 UNIT/0.5 ML CARP SQ SCH ×3 (06:03→20:53)
[2016-10-17 07:52] VITALS: BP 115/67; PULSE 76; TEMP 36.9; O2SAT 97
[2016-10-17] MEDS: PANTOprazole SOD 40 MG TAB PO SCH (08:47)
[2016-10-17] MEDS: RANITIDINE HCL 150 MG TAB PO SCH ×2 (08:47→20:40)
[2016-10-17] MEDS: POTASSIUM CHLORIDE 20 MEQ TABCR PO SCH (08:48)
[2016-10-17] MEDS: TOPIRAMATE 25 MG TAB PO SCH ×2 (08:48→20:41)
[2016-10-17] MEDS: LACTOBACILLUS ACIDOPHILUS (FLORANEX) TAB PO SCH ×3 (08:48→16:36)
[2016-10-17] MEDS: MAGNESIUM OXIDE 400 MG TAB PO SCH ×3 (08:48→20:41)
[2016-10-17] MEDS: RIFAXIMIN TAB 550 MG TAB PO SCH ×2 (08:48→20:42)
[2016-10-17] MEDS: LACTULOSE SYRUP 20 GM/30 ML UDC PO SCH ×2 (08:48→20:43)
[2016-10-17] MEDS: MULTIVITAMIN TAB PO SCH (08:48)
[2016-10-17] MEDS: BUDESONIDE/FORMOTEROL FUMARATE 160/4.5 60 PUFFS/INHALER INH SCH ×2 (08:48→20:44)
[2016-10-17] MEDS: CARBIDOPA/LEVODOPA 25/100MG EXT REL TAB PO SCH ×3 (08:48→20:43)
[2016-10-17] MEDS: LEVETIRACETAM 1000 MG PO SCH ×2 (08:49→20:39)
[2016-10-17] MEDS: DESVENLAFAXINE SUCCINATE 50 MG TABCR PO SCH (08:49)
--- NOTE | 2016-10-17 09:00 | Medical Student: [facility] ---
Med Student Progress Note Date of Service Oct 17, 2016. Subjective Pt evaluation today including: conversation w/ patient Overnight, the patient was incontinent of feces once in bed. According to nurses , there has been no more seizure like activity since yesterday. The patient complains of 7/10 chest pain that is worsened by lying down and improves when sitting up. She denies NAVA, SOB, abdominal pain, diarrhea or constipation. Review of Systems Constitutional: No fever, No chills, No weight loss Eyes: No worsening of vision ENT: No hearing loss Respiratory: No cough, No sputum, No wheezing, No shortness of breath Cardiac: No palpitations Abdomen: No pain, No nausea, No vomiting, No diarrhea, No constipation Musculoskeletal: + muscle pain (chest ) Female : No dysuria Endo: + fatigue Skin: No rash, No itch Objective Vital Signs Date Time Temp Pulse Resp B/P (MAP) Pulse Ox O2 Delivery O2 Flow Rate FiO2 10/17/16 07:52 36.9 76 16 115/67 (83) 97 Room Air 10/17/16 00:03 36.8 87 20 145/82 (103) 97 Room Air 10/17/16 00:00 Room Air 10/16/16 16:13 36.8 92 18 151/83 (105) 100 Room Air 10/16/16 16:00 Room Air Physical Exam General Appearance: WD/WN, no apparent distress Eyes: bilateral eyes normal inspection, bilateral eyes PERRL, bilateral eyes EOMI ENT: normal ENT inspection, hearing grossly normal, pharynx normal Neck: supple, no adenopathy, thyroid normal, no JVD Respiratory/Chest: lungs clear, normal breath sounds, no respiratory distress, no accessory muscle use, + pertinent finding (chest tender to palpation over sternum and adjacent ) Cardiovascular: regular rate, rhythm, no edema, no gallop, no JVD, no murmur Abdomen: normal bowel sounds, non tender, soft, no organomegaly Extremities: no pedal edema, no calf tenderness Neurologic/Psychiatric: group program manager II-XII nml as tested, no motor/sensory deficits, alert, oriented x 3 Skin: normal color, warm/dry, no rash Lymphatic: no adenopathy Laboratory Results Last 24 Hours Test 10/16/16 11:26 10/16/16 14:47 10/16/16 15:25 10/16/16 17:09 Bedside Glucose 214 mg/dl 197 mg/dl 145 mg/dl Venous Blood pH 7.40 Venous Blood Partial Pressure CO2 36 mmHg Venous Blood Partial Pressure O2 49 mmHg Venous Blood HCO3 22 mmol/L Venous Blood Oxygen Saturation 82.1 % Venous Blood Base Excess -2.7 mmol/L Magnesium Level 1.8 mg/dl Ammonia 106.0 umol/L Troponin I < 0.015 ng/ml Test 10/16/16 21:01 10/17/16 05:17 10/17/16 07:04 Bedside Glucose 244 mg/dl 127 mg/dl White Blood Count 3.08 K/uL Red Blood Count 2.56 M/uL Hemoglobin 9.5 g/dL Hematocrit 26.2 % Mean Corpuscular Volume 102.3 fL Mean Corpuscular Hemoglobin 37.1 pg Mean Corpuscular Hemoglobin Concent 36.3 g/dl RDW Standard Deviation 54.4 fL RDW Coefficient of Variation 14.6 % Platelet Count 85 K/uL Mean Platelet Volume 9.9 fL Sodium Level 144 mmol/L Potassium Level 3.8 mmol/L Chloride Level 114 mmol/L Carbon Dioxide Level 25 mmol/L Anion Gap 5.0 mmol/L Blood Urea Nitrogen 7 mg/dl Creatinine 0.47 mg/dl Est Creatinine Clear Calc Drug Dose 180.4 ml/min Estimated GFR () 133.5 Estimated GFR (Non- 115.2 BUN/Creatinine Ratio 15.8 Random Glucose 150 mg/dl Calcium Level 7.8 mg/dl Assessment and Plan Assessment and Plan: Assessment: Mrs. 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 The patient follows with Dr. Gonzalez for her generalized epilepsy. Her most recent EEG on 10/03 indicated generalized epilepsy with moderate encephalopathy. Recently, her Keppra was increased to 2000 mg PO BID. The patient was afebrile and had no leukocytosis on admission. CXR showed a RUL consolidation however. She was started on Aztreonam. Ammonia level was found to be 167 and blood glucose 40. She was given a lactulose enema and an amp of D50, which improved her NH3 level to 53 and glucose normalized. Additionally, LFTs were elevated consistent with her h/o cirrhosis. T bili was 1.7, D bili was 0.6, AST was 56, and Alk phos was 205. The patient was also found to be hypernatremic at 149 and hypokalemic at 3.3. Mg was normal at 1.9. EKG on admission showed a prolonged QTc of 523. Hypernatremia was resolved with IVFs. Sodium is 144 today. Hypokalemia was resolved with KCL. K is 3.8 today. With resolution of her hypokalemia, QTc interval normalized to 467. On admission, the patient was also complaining of chest pain and physical examination determined a likely MSK etiology. The patient's mental status had improved from 10/14 to 10/15, but on 10/16, the patient 's mental status worsened and was waxing and waning. She was very somnolent with her head down and drooling. She was not oriented, exhibited lip smacking, and had a slight b/l tremor of her hands. Her status then dramatically changed as we were in the room with her. She became more alert and was oriented. Seizure vs pseudoseizure was considered. We discussed this episode with Dr. Frye who suggested we increase her Trileptal to 600 mg TID. Since yesterday , she has been incontinent of urine and feces and still complains of chest pain. The patient is currently being managed acutely for a healthcare associated pneumonia, hepatic encephalopathy and generalized epilepsy. Plan: Altered mental status - most attributable to hepatic encephalopathy (NH3 167 yesterday, possibly medication noncompliance and/or infectious pneumonia process exacerbating encephalopathy). Also likely attributable to hypernatremia (149 on admission) and hypoglycemia (41 on admission). Mental status improved today. No waxing and waning confusion, lip smacking, tremor or loss of orientation. 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 Na on admission 149, Na today 144. Hypernatremia resolved -d/c IVF -recheck BMP AM Hypokalemia - 3.3 on admission, 3.8 today -continue KCL 20 meq BID -recheck BMP AM Generalized epilepsy - most recent EEC 10/03 indicated generalized epilepsy with moderate encephalopathy. Dr. 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
[2016-10-17] MEDS: INSULIN ASPART 100 UNITS/ML 3 ML PEN SC SCH ×5 (09:04→20:52)
[2016-10-17] MEDS: INSULIN GLARGINE 300 UNITS/ML INJ SC SCH (09:05)
[2016-10-17] MEDS: OXCARBAZEPINE 300 MG TAB PO SCH ×3 (09:06→20:45)
[2016-10-17 15:59] VITALS: BP 136/78; PULSE 83; TEMP 36.6; O2SAT 98
[2016-10-17] MEDS ORDERED: OXCARBAZEPINE 300 MG TAB PO ONE (16:15)
--- NOTE | 2016-10-17 16:48 | Progress Note ---
Subjective Date of Service: Oct 17, 2016. Subjective this pt is feeling about her usual state, she is not coughing, and feels near her baseline did have increase in Keppra and trileptal. Her is at bedside and updated, planning on going home Problem List Medical Problems: (1) Acute bronchitis Status: Acute (2) Acute hepatic encephalopathy Status: Acute (3) Alkaline phosphatase elevation Status: Acute (4) Anemia Status: Acute (5) Back pain Status: Acute (6) Bradycardia Status: Acute (7) Breakthrough seizure Status: Acute (8) Burn Status: Acute (9) Change in mental status Status: Acute (10) Change in mental status Status: Acute (11) Chronic low back pain Status: Acute (12) Closed head injury Status: Acute (13) Dehydration Status: Acute (14) Dizziness Status: Acute (15) Facial laceration Status: Acute (16) Fall Status: Acute (17) Fall Status: Acute (18) Fatigue Status: Acute (19) Hemorrhoid Status: Acute (20) Hepatic encephalopathy Status: Acute (21) Hepatic encephalopathy Status: Acute (22) Hepatic encephalopathy Status: Acute (23) Hepatic encephalopathy Status: Acute (24) Hepatic encephalopathy Status: Acute (25) Hepatic encephalopathy Status: Acute (26) Hepatic encephalopathy Status: Acute (27) Hepatic encephalopathy Status: Acute (28) Hyperammonemia Status: Acute (29) Hyperammonemia Status: Acute (30) Hyperammonemia Status: Acute (31) Hyperammonemia Status: Acute (32) Hypocalcemia Status: Acute (33) Hypocalcemia Status: Acute (34) Hypoglycemia Status: Acute (35) Hypokalemia Status: Acute (36) Hypomagnesemia Status: Acute (37) Increased ammonia level Status: Acute (38) Left foot pain Status: Acute (39) Leukopenia Status: Acute (40) Low back pain Status: Acute (41) Pain in pelvis Status: Acute (42) Pancytopenia Status: Acute (43) Right ear pain Status: Acute (44) Right groin pain Status: Acute (45) Right hip pain Status: Acute (46) Right upper lobe pneumonia Status: Acute (47) RUQ abdominal pain Status: Acute (48) Thrombocytopenia Status: Acute (49) Weakness Status: Acute (50) Weakness Status: Acute (51) Weakness Status: Acute (52) Weakness Status: Acute Review of Systems Constitutional: + weakness, + fatigue, No fever, No chills Respiratory: No cough, No sputum, No shortness of breath, No dyspnea on exertion Cardiac: No chest pain, No orthopnea, No edema Abdomen: + diarrhea, No pain, No nausea, No vomiting Musculoskeletal: No joint pain, No muscle pain Female : No dysuria, No urinary frequency Neurologic: + weakness Psychiatric: + depression symptoms, + anxiety Objective Vital Signs Date Time Temp Pulse Resp B/P (MAP) Pulse Ox O2 Delivery O2 Flow Rate FiO2 10/17/16 07:52 36.9 76 16 115/67 (83) 97 Room Air 10/17/16 00:03 36.8 87 20 145/82 (103) 97 Room Air 10/17/16 00:00 Room Air 10/16/16 16:13 36.8 92 18 151/83 (105) 100 Room Air 10/16/16 16:00 Room Air Physical Exam General Appearance: WD/WN, + mild distress Neck: supple, no JVD Respiratory/Chest: chest non-tender, lungs clear, normal breath sounds Cardiovascular: regular rate, rhythm, no murmur Abdomen: normal bowel sounds, non tender, soft Extremities: no calf tenderness, + pedal edema Neurologic/Psychiatric: alert, oriented x 3 Laboratory Results Last 24 Hours Test 10/16/16 11:26 10/16/16 14:47 10/16/16 15:25 10/16/16 17:09 Bedside Glucose 214 mg/dl 197 mg/dl 145 mg/dl Venous Blood pH 7.40 Venous Blood Partial Pressure CO2 36 mmHg Venous Blood Partial Pressure O2 49 mmHg Venous Blood HCO3 22 mmol/L Venous Blood Oxygen Saturation 82.1 % Venous Blood Base Excess -2.7 mmol/L Magnesium Level 1.8 mg/dl Ammonia 106.0 umol/L Troponin I < 0.015 ng/ml Test 10/16/16 21:01 10/17/16 05:17 Bedside Glucose 244 mg/dl White Blood Count 3.08 K/uL Red Blood Count 2.56 M/uL Hemoglobin 9.5 g/dL Hematocrit 26.2 % Mean Corpuscular Volume 102.3 fL Mean Corpuscular Hemoglobin 37.1 pg Mean Corpuscular Hemoglobin Concent 36.3 g/dl RDW Standard Deviation 54.4 fL RDW Coefficient of Variation 14.6 % Platelet Count 85 K/uL Mean Platelet Volume 9.9 fL Sodium Level 144 mmol/L Potassium Level 3.8 mmol/L Chloride Level 114 mmol/L Carbon Dioxide Level 25 mmol/L Anion Gap 5.0 mmol/L Blood Urea Nitrogen 7 mg/dl Creatinine 0.47 mg/dl Est Creatinine Clear Calc Drug Dose 180.4 ml/min Estimated GFR () 133.5 Estimated GFR (Non- 115.2 BUN/Creatinine Ratio 15.8 Random Glucose 150 mg/dl Calcium Level 7.8 mg/dl Assessment and Plan 50yo female with 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 hepatic encephalopathy - although ammonia level today is higher than previous, her baseline ammonia level seems to run about 80-100. Her rapid cycling between lethargy and being completely alert & at baseline is not typical for hepatic encephalopathy (see discussion below). She is having 3-4 bowel movements/day on lactulose BID. Continue lactulose + rifaximin. seizure d/o - the patient had a recent EEG in early September c/w seizures. Her keppra dose was increased to 2000mg BID at that time due to concern of breakthrough seizures. complex partial seizure (lip smacking, altered MS, etc). Pseudoseizure is not excluded, however. Dr. Frye recommended increasing her trileptal from BID dosing to TID RUL pneumonia - clinically stable. on aztreonam to cover for possible gram neg etiology. MRSA swab neg; can likely transition to PO levaquin on 10/17/16. For diabetic care Pt prefers her trujeo from home and using such at 15 units qam with normal AM sugars. Increase novolog carb ratio and correction. recent chest pain - had such for 3 days prior to admission. Suspect musculoskeletal, troponins negative. abnormal LFTs - 2nd to STEVE/cirrhosis - at baseline. hypernatremic dehydration/ hypokalemia - resolved; DVT proph - heparin TID. Continued [facility] stay due to: ambulation difficulties, multiple IV medications needed, other (waxing/waning mental status - cause??) Discharge planning: home with home health
[2016-10-17] MEDS: MIRTAZAPINE TAB 15 MG TAB PO SCH (20:42)
[2016-10-17] MEDS: FERROUS SULFATE 325 MG TAB PO SCH (20:44)
[2016-10-17 23:16] VITALS: BP 144/78; PULSE 84; TEMP 36.6; O2SAT 96
[2016-10-18] MEDS: AZTREONAM IV 1,000 MG in DEXTROSE 5% 100ML 100 ML IV SCH ×2 (03:38→12:54)
[2016-10-18] MEDS: LEVOTHYROXINE 75 MCG TAB PO SCH (05:42)
[2016-10-18] MEDS: HEPARIN SOD 5000 UNIT/0.5 ML CARP SQ SCH ×3 (05:49→21:19)
--- NOTE | 2016-10-18 07:42 | Medical Student: [facility] ---
Med Student Progress Note Date of Service Oct 18, 2016. Subjective Pt evaluation today including: conversation w/ patient No acute events overnight. Patient continues to be in 8/10 chest pain. She also continues to be incontinent of urine, but was not incontinent of stool overnight. She denies NAVA, cough, SOB, and abdominal pain. Review of Systems Constitutional: No fever, No chills, No weight loss Eyes: No worsening of vision Respiratory: No cough, No sputum, No wheezing, No shortness of breath Cardiac: + chest pain (8/10 ), No edema, No palpitations Abdomen: No pain, No nausea, No vomiting, No diarrhea, No constipation Female : No dysuria Endo: + fatigue Skin: No rash, No itch Objective Vital Signs Date Time Temp Pulse Resp B/P (MAP) Pulse Ox O2 Delivery O2 Flow Rate FiO2 10/18/16 00:00 Room Air 10/17/16 23:16 36.6 84 16 144/78 (100) 96 Room Air 10/17/16 16:10 Room Air 10/17/16 15:59 36.6 83 20 136/78 (97) 98 Room Air 10/17/16 08:30 Room Air 10/17/16 07:52 36.9 76 16 115/67 (83) 97 Room Air Physical Exam General Appearance: WD/WN, no apparent distress Eyes: bilateral eyes normal inspection, bilateral eyes PERRL, bilateral eyes EOMI ENT: normal ENT inspection, hearing grossly normal, pharynx normal Neck: supple, no adenopathy, thyroid normal, no JVD Respiratory/Chest: lungs clear, normal breath sounds, no respiratory distress, no accessory muscle use Cardiovascular: regular rate, rhythm, no edema, no gallop, no JVD, no murmur Abdomen: normal bowel sounds, non tender, soft, no organomegaly Extremities: non-tender, no pedal edema, no calf tenderness Neurologic/Psychiatric: physical therapy director II-XII nml as tested, no motor/sensory deficits, alert Skin: normal color, warm/dry, no rash Lymphatic: no adenopathy Laboratory Results Last 24 Hours Test 10/17/16 11:25 10/17/16 14:29 10/17/16 16:36 10/17/16 20:31 Bedside Glucose 238 mg/dl 185 mg/dl 196 mg/dl Assessment and Plan Assessment and Plan: Assessment: Mrs. 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 The patient follows with Dr. Gonzalez for her generalized epilepsy. Her most recent EEG on 10/03 indicated generalized epilepsy with moderate encephalopathy. Recently, her Keppra was increased to 2000 mg PO BID. The patient was afebrile and had no leukocytosis on admission. CXR showed a RUL consolidation however. She was started on Aztreonam. Ammonia level was found to be 167 and blood glucose 40. She was given a lactulose enema and an amp of D50, which improved her NH3 level to 53 and glucose normalized. Additionally, LFTs were elevated consistent with her h/o cirrhosis. T bili was 1.7, D bili was 0.6, AST was 56, and Alk phos was 205. The patient was also found to be hypernatremic at 149 and hypokalemic at 3.3. Mg was normal at 1.9. EKG on admission showed a prolonged QTc of 523. Hypernatremia was resolved with IVFs. Sodium is 144 today. Hypokalemia was resolved with KCL. K is 3.8 today. With resolution of her hypokalemia, QTc interval normalized to 467. On admission, the patient was also complaining of chest pain and physical examination determined a likely MSK etiology. The patient's mental status had improved from 10/14 to 10/15, but on 10/16, the patient 's mental status worsened and was waxing and waning. She was very somnolent with her head down and drooling. She was not oriented, exhibited lip smacking, and had a slight b/l tremor of her hands. Her status then dramatically changed as we were in the room with her. She became more alert and was oriented. Seizure vs pseudoseizure was considered. We discussed this episode with Dr. Frye who suggested we increase her Trileptal to 600 mg TID. The patient is currently being managed acutely for a healthcare associated pneumonia, hepatic encephalopathy and generalized epilepsy. Plan: Altered mental status - most attributable to hepatic encephalopathy (NH3 167 yesterday, possibly medication noncompliance and/or infectious pneumonia process exacerbating encephalopathy). Also likely attributable to hypernatremia (149 on admission) and hypoglycemia (41 on admission). 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 Na on admission 149, Na today 144. Hypernatremia resolved -d/c IVF -recheck BMP AM Hypokalemia - 3.3 on admission, 3.8 today -continue KCL 20 meq BID -recheck BMP AM Generalized epilepsy - most recent EEC 10/03 indicated generalized epilepsy with moderate encephalopathy. Dr. Frye increased Keppra to 2000 recently -continue IV Keppra 2000 mg PO BID -continue Topiramate 50 mg PO BID -continue Oxcarbazepine 600 mg PO BID RUL PA -switch from Aztreonam to Bactrim 800/160 q12hr, treat until 10/20 for total 7 day coverage -need to consider TB as patient has hx of TB exposure and has had a positive PPD multiple times -quantiferon TB gold pending -infectious disease consulted - patient did not provide any pulmonary risk factors to suggest active pulm TB, could consider CAT scan of chest or bronchoscopy if concern for ongoing pulmonary infection Asthma -continue DuoNeb PRN -continue Symbicort BID Hypothyroidism -continue Synthroid 75 mcg PO qAM GERD -continue ranitidine 150 mg PO BID T2DM -continue aspart and glargine Depression -continue Mirtazapine 15 mg PO daily -continue desvenlafaxine 50 mg PO daily DVT prophylaxis: heparin 5000 units q8hr Continued [facility] stay due to: ambulation difficulties, multiple IV medications needed, other (waxing/waning mental status - cause??) Discharge planning: home with home health
[2016-10-18 07:47] VITALS: BP 146/79; PULSE 80; TEMP 36.4; O2SAT 98
[2016-10-18] MEDS: LACTOBACILLUS ACIDOPHILUS (FLORANEX) TAB PO SCH ×3 (09:10→17:32)
[2016-10-18] MEDS: PANTOprazole SOD 40 MG TAB PO SCH (09:11)
[2016-10-18] MEDS: CARBIDOPA/LEVODOPA 25/100MG EXT REL TAB PO SCH ×3 (09:11→21:06)
[2016-10-18] MEDS: RANITIDINE HCL 150 MG TAB PO SCH ×2 (09:11→21:04)
[2016-10-18] MEDS: POTASSIUM CHLORIDE 20 MEQ TABCR PO SCH (09:12)
[2016-10-18] MEDS: TOPIRAMATE 25 MG TAB PO SCH ×2 (09:12→21:07)
[2016-10-18] MEDS: MULTIVITAMIN TAB PO SCH (09:12)
[2016-10-18] MEDS: MAGNESIUM OXIDE 400 MG TAB PO SCH ×3 (09:12→21:06)
[2016-10-18] MEDS: RIFAXIMIN TAB 550 MG TAB PO SCH ×2 (09:12→21:05)
[2016-10-18] MEDS: DESVENLAFAXINE SUCCINATE 50 MG TABCR PO SCH (09:13)
[2016-10-18] MEDS: OXCARBAZEPINE 300 MG TAB PO SCH ×2 (09:14→21:09)
[2016-10-18] MEDS: LEVETIRACETAM 1000 MG PO SCH ×2 (09:14→21:08)
[2016-10-18] MEDS: LACTULOSE SYRUP 20 GM/30 ML UDC PO SCH ×2 (09:14→21:03)
[2016-10-18] MEDS: BUDESONIDE/FORMOTEROL FUMARATE 160/4.5 60 PUFFS/INHALER INH SCH ×2 (09:15→21:03)
[2016-10-18] MEDS: INSULIN ASPART 100 UNITS/ML 3 ML PEN SC SCH ×4 (09:27→21:18)
[2016-10-18] MEDS: INSULIN GLARGINE 300 UNITS/ML INJ SC SCH (09:28)
--- NOTE | 2016-10-18 11:51 | Progress Note ---
Progress Note Date of Service Oct 18, 2016. Progress Note ID Consult Dictated #[id number] A/P: 1. RUL opacity pna vs atelectasis 2. Reported h/o +ppd, never treated -No clear symptoms to suggest TB, IGRA pending -CXR ? atelectasis, no clear symptoms to suggest CAP, ? aspiration with h/o seizures, on abx, can finish 5 days -Would hold additional w/u for now as she has no signs/symptoms to suggest TB, unclear h/o + ppd, also would need to consider benefit/risk of treating for LTBI with underlying h/o liver disease and cirrhosis -d/w primary, thank you
--- NOTE | 2016-10-18 12:46 | INFECT. DISEASE CONSULTATION ---
DATE OF CONSULTATION: 10/18/2016 DATE OF CONSULTATION: 10/18/2016. REQUESTING PHYSICIAN: Dr. Rice. HISTORY OF PRESENT ILLNESS: This is a 50-year-old female who has cirrhosis secondary to STEVE and has had multiple recent stays at the hospital for hepatic encephalopathy. This was per the chart to be due to medication noncompliance as an outpatient. She is lethargic on my examination and has to be awoken several times to obtain a history She states she lives at home with her and does not have any sick contacts. She was brought into the hospital by her for increasing lethargy. She does have a history of seizure disorder with a recent EEG a few weeks ago which did confirm seizures. She does have an ammonia level that was elevated at 167 in the Emergency Room and her glucose was low at 40. In the Emergency Room, she did undergo laboratory studies. Her LFTs revealed an AST of 56 and ALT of 59; however her ammonia was elevated and her bilirubin was elevated at 1.7. Her ammonia level is decreasing and her glucose has improved. Her last ammonia level was 106 on the . She has not had repeat LFTs. Her creatinine has been normal. She has been leukopenic and afebrile since admission. Urinalysis was unremarkable. 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 She is currently not working in a healthcare facility. She tells me she is not sure if she has ever worked with patients with tuberculosis, but states that could be a possibility. She denies any home, family or other contacts for tuberculosis. [place] and has not had any travel outside of [place] in many years. She denies any recent sick contacts. She states that she was notified of positive skin test many years ago by her employer, but was never offered treatment for latent tuberculosis. It is unclear if she had chest x-ray testing at that time. She did undergo imaging of her chest on the and . The there was a right upper lobe infiltrate that was noted. She was started on aztreonam and is tolerating this well. Her repeat chest x-ray done on the shows infiltrate versus atelectasis. She denies any cough or hemoptysis. She denies any fevers or chills at home. She states she may have had weight loss but is not intentionally trying to lose weight. She denies any night sweats, fevers or chills. She did admit to some chest pain previously, but states this has resolved. She denies any abdominal pain, nausea, vomiting or diarrhea. A QuantiFERON Gold was obtained yesterday and the results of this are pending. She remains on aztreonam and is tolerating this well. No pulmonary evaluation has been requested. Her remaining review of systems are reviewed and are unremarkable. PAST MEDICAL HISTORY: Significant for asthma, cirrhosis, hepatic encephalopathy, type 2 diabetes, gastroparesis, bipolar disorder, depression, migraines, myelodysplastic syndrome, peptic ulcer disease, portal hypertension, seizure disorder, Parkinson's and hypothyroidism. PAST SURGICAL HISTORY: Significant for nasal septum surgery, appendectomy, cholecystectomy, hysterectomy, lumbar surgery, tonsillectomy, spinal nerve stimulator and a right port placement. FAMILY HISTORY: Noncontributory. SOCIAL HISTORY: Negative for tobacco use, alcohol use or drug use. She currently lives at home with her . She denies sick contacts. Her remaining social history is as per HPI. ALLERGIES: SHE HAS ALLERGIES TO PENICILLIN, AZITHROMYCIN, BACLOFEN, CLARITHROMYCIN, DICYCLOMINE, TETRACYCLINE, ADHESIVE TAPE, METRONIDAZOLE, TRAMADOL, REGLAN, AND LASIX. CURRENT MEDICATIONS: Include Trileptal, potassium, Pristiq, insulin, iron, Remeron, Keppra, Floranex, NovoLog, Sinemet, multivitamins, Zantac, rifaximin, Topamax, Protonix, Synthroid, Ventolin, subQ heparin, Symbicort, aztreonam and DuoNebs. PHYSICAL EXAMINATION: VITAL SIGNS: She is afebrile and has been since admission to the hospital, pulse 80, respiratory rate 16, blood pressure is 146/79, oxygen saturation 98% on room air. GENERAL: She is awake but lethargic. She is appropriate but must be aroused at all times. HEAD, EYES, EARS, NOSE, AND THROAT: Mucous membranes are moist. Extraocular muscles are intact. HEART: Regular. I do not auscultate a murmur. Right chest port is noted. LUNGS: Clear anteriorly with poor inspiratory effort. ABDOMEN: Soft, nontender. There is no edema. SKIN: Without rash. LABORATORY STUDIES: CBC yesterday reveals a white blood cell count of 3.0, hemoglobin 9.5 and platelets of 85. Chemistry panel most recently yesterday reveals a sodium of 144, potassium 3.8, chloride 114, bicarbonate 25, BUN 7, creatinine 0.47, glucose is 244. Ammonia level on the was 106. Urinalysis was negative. Blood and urine cultures are negative. Chest x-ray findings are as above. ASSESSMENT AND PLAN: History of positive PPD. She does not provide any pulmonary risk factors at this time to suggest active pulmonary tuberculosis. I did review her chest x-ray and it is difficult interpretation as they are reportable and certainly the findings in the right upper lobe, could be atelectasis. If there is any concern for ongoing pulmonary infection a CAT scan of the chest would be recommended. She is on aztreonam and does admit to minimal clinical improvement. No sputum cultures have been obtained and I doubt that she would be able to provide a specimen. If there is concern for tuberculosis certainly a bronchoscopy would be warranted; however, I do not elicit any significant risk factors on her history. It is unclear when she did have a positive PPD or how many millimeters in duration this was. She is unable to provide even location of where the PPD was placed on my examination today. The results of her QuantiFERON are pending and further determination of treatment will depend on whether this is positive or negative. With her history of cirrhosis any treatment for active or latent tuberculosis would need to be done carefully secondary to the potential for hepatic toxicity. Any medication will be held at this time. We will follow the results of her QuantiFERON testing.
[2016-10-18 15:00] VITALS: BP 140/67; PULSE 86; TEMP 36.6; O2SAT 100
--- NOTE | 2016-10-18 18:01 | Progress Note ---
Subjective Date of Service: Oct 18, 2016. Subjective pt is much more lethargic today after increasing trileptal for concerns of increased clinical seizures, mostly partial in nature, and recent abnormal EEG. repeat ammonia is elevated and this is despite having bowel movements daily on lactulose and xifaxan Problem List Medical Problems: (1) Acute bronchitis Status: Acute (2) Acute hepatic encephalopathy Status: Acute (3) Alkaline phosphatase elevation Status: Acute (4) Anemia Status: Acute (5) Back pain Status: Acute (6) Bradycardia Status: Acute (7) Breakthrough seizure Status: Acute (8) Burn Status: Acute (9) Change in mental status Status: Acute (10) Change in mental status Status: Acute (11) Chronic low back pain Status: Acute (12) Closed head injury Status: Acute (13) Dehydration Status: Acute (14) Dizziness Status: Acute (15) Facial laceration Status: Acute (16) Fall Status: Acute (17) Fall Status: Acute (18) Fatigue Status: Acute (19) Hemorrhoid Status: Acute (20) Hepatic encephalopathy Status: Acute (21) Hepatic encephalopathy Status: Acute (22) Hepatic encephalopathy Status: Acute (23) Hepatic encephalopathy Status: Acute (24) Hepatic encephalopathy Status: Acute (25) Hepatic encephalopathy Status: Acute (26) Hepatic encephalopathy Status: Acute (27) Hepatic encephalopathy Status: Acute (28) Hyperammonemia Status: Acute (29) Hyperammonemia Status: Acute (30) Hyperammonemia Status: Acute (31) Hyperammonemia Status: Acute (32) Hypocalcemia Status: Acute (33) Hypocalcemia Status: Acute (34) Hypoglycemia Status: Acute (35) Hypokalemia Status: Acute (36) Hypomagnesemia Status: Acute (37) Increased ammonia level Status: Acute (38) Left foot pain Status: Acute (39) Leukopenia Status: Acute (40) Low back pain Status: Acute (41) Pain in pelvis Status: Acute (42) Pancytopenia Status: Acute (43) Right ear pain Status: Acute (44) Right groin pain Status: Acute (45) Right hip pain Status: Acute (46) Right upper lobe pneumonia Status: Acute (47) RUQ abdominal pain Status: Acute (48) Thrombocytopenia Status: Acute (49) Weakness Status: Acute (50) Weakness Status: Acute (51) Weakness Status: Acute (52) Weakness Status: Acute Review of Systems Constitutional: + weakness, + fatigue, No fever, No chills Respiratory: No cough, No shortness of breath, No dyspnea on exertion Cardiac: No chest pain, No edema Abdomen: No pain, No nausea, No vomiting, No diarrhea Neurologic: + memory loss, + weakness, + balance problems Psychiatric: + depression symptoms, No anxiety Objective Vital Signs Date Time Temp Pulse Resp B/P (MAP) Pulse Ox O2 Delivery O2 Flow Rate FiO2 10/18/16 15:42 Room Air 10/18/16 15:00 36.6 86 20 140/67 (91) 100 Room Air 10/18/16 08:00 Room Air 10/18/16 07:47 36.4 80 16 146/79 (101) 98 Room Air 10/18/16 00:00 Room Air 10/17/16 23:16 36.6 84 16 144/78 (100) 96 Room Air Physical Exam General Appearance: WD/WN, + moderate distress (markedly lehtargic) Eyes: PERRL, EOMI Neck: supple, no JVD Respiratory/Chest: chest non-tender, + decreased breath sounds, + accessory muscle use Cardiovascular: regular rate, rhythm, no murmur Abdomen: normal bowel sounds, soft Extremities: normal inspection, + pedal edema Neurologic/Psychiatric: alert, + depressed affect, + disoriented Laboratory Results Last 24 Hours Test 10/17/16 20:31 10/18/16 07:33 10/18/16 11:25 10/18/16 12:01 Bedside Glucose 196 mg/dl 163 mg/dl 233 mg/dl Ammonia 189.0 umol/L Test 10/18/16 16:11 Bedside Glucose 266 mg/dl Assessment and Plan 50yo female with 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 hepatic encephalopathy - ammonia level 10/18 is higher than previous, her baseline ammonia level is in the 80-100. she is much more sleepy today and despite this is asking for additional pain medicines She is having 3-4 bowel movements/day on lactulose BID. Continue lactulose + rifaximin, adding neomycin and will have GI medicine weight in. abnormal LFTs - 2nd to STEVE/cirrhosis -give worsening ammonia recheck 10/19 and also check INR seizure d/o - the patient had a recent EEG in early September c/w seizures. Her keppra dose was increased to 2000mg BID at that time due to concern of breakthrough seizures. complex partial seizure (lip smacking, altered MS, etc). Pseudoseizure is not excluded, however. Dr. Frye recommended increasing her trileptal from BID dosing to TID, but with lethargy and increased ammonia will return to 600 bid on 10/18 RUL pneumonia - clinically stable. on aztreonam to cover for possible gram neg etiology. MRSA swab neg; can likely transition to PO levaquin on 10/17/16. given RUL did have ID see and send Quanterferon Gold, no immediate recommendations For diabetic care Pt prefers her trujeo from home and using such at 15 units qam with good glucose control Increased novolog carb ratio and correction. recent chest pain - had such for 3 days prior to admission. Suspect musculoskeletal, troponins negative. Pt asking for opiate meds will not escalate at this time due to lethargy hypernatremic dehydration/ hypokalemia - resolved; DVT proph - heparin TID. Continued [facility] stay due to: ambulation difficulties, multiple IV medications needed, other (waxing/waning mental status - cause??) Discharge planning: home with home health
[2016-10-18] MEDS: NEOMYCIN SULFATE 500 MG TAB PO SCH (21:04)
[2016-10-18] MEDS: FERROUS SULFATE 325 MG TAB PO SCH (21:06)
[2016-10-18] MEDS: MIRTAZAPINE TAB 15 MG TAB PO SCH (21:07)
[2016-10-18] MEDS: SULFAMETHOXAZOLE/TRIMETHOPRIM DS 800/160MG TAB PO SCH (21:07)
[2016-10-18 23:11] VITALS: BP 137/76; PULSE 96; TEMP 36.3; O2SAT 96
[2016-10-19] VITALS (9 sets, daily range): BP systolic 134–165; BP diastolic 69–88; PULSE 87–101; TEMP 36.3–37.4; O2SAT 98–100
[2016-10-19] MEDS: HEPARIN SOD 5000 UNIT/0.5 ML CARP SQ SCH ×3 (06:15→21:22)
[2016-10-19 06:27] LABS: INR 1.1 (0.9-1.1); PROTHROMBIN TIME (PATIENT) 12.3 SECONDS (9.0-12.0)
[2016-10-19] MEDS: LEVOTHYROXINE 75 MCG TAB PO SCH (06:30)
[2016-10-19 06:32] LABS: BUN/CREATININE RATIO 12.4 (10-20); CALCIUM 8.2 mg/dl (8.5-10.1); CREATININE 0.49 mg/dl (0.60-1.20); POTASSIUM 3.9 mmol/L (3.5-5.1)
[2016-10-19] MEDS: LACTOBACILLUS ACIDOPHILUS (FLORANEX) TAB PO SCH ×2 (08:00→11:51)
[2016-10-19] MEDS: CARBIDOPA/LEVODOPA 25/100MG EXT REL TAB PO SCH (09:00)
[2016-10-19] MEDS: RANITIDINE HCL 150 MG TAB PO SCH ×2 (09:00→21:16)
[2016-10-19] MEDS: SULFAMETHOXAZOLE/TRIMETHOPRIM DS 800/160MG TAB PO SCH (09:00)
[2016-10-19] MEDS: NEOMYCIN SULFATE 500 MG TAB PO SCH ×4 (09:00→21:16)
[2016-10-19] MEDS: PANTOprazole SOD 40 MG TAB PO SCH (09:00)
[2016-10-19] MEDS: LACTULOSE SYRUP 20 GM/30 ML UDC PO SCH (09:00)
[2016-10-19] MEDS: BUDESONIDE/FORMOTEROL FUMARATE 160/4.5 60 PUFFS/INHALER INH SCH ×2 (09:00→21:00)
[2016-10-19] MEDS: RIFAXIMIN TAB 550 MG TAB PO SCH (09:00)
[2016-10-19] MEDS: LEVETIRACETAM 1000 MG PO SCH (09:00)
[2016-10-19] MEDS: OXCARBAZEPINE 300 MG TAB PO SCH ×2 (09:00→21:16)
[2016-10-19] MEDS: DESVENLAFAXINE SUCCINATE 50 MG TABCR PO SCH (09:00)
[2016-10-19] MEDS: MAGNESIUM OXIDE 400 MG TAB PO SCH ×2 (09:00→13:44)
[2016-10-19] MEDS: MULTIVITAMIN TAB PO SCH (09:00)
[2016-10-19] MEDS: TOPIRAMATE 25 MG TAB PO SCH (09:00)
[2016-10-19] MEDS: POTASSIUM CHLORIDE 20 MEQ TABCR PO SCH (09:00)
[2016-10-19] MEDS ORDERED: NALOXONE HCL 0.4 MG/1 ML VIAL/CARP IV STA (09:05)
[2016-10-19] MEDS: INSULIN GLARGINE 300 UNITS/ML INJ SC SCH (09:28)
[2016-10-19] MEDS ORDERED: FLUMAZENIL 0.1 MG/1 ML 10 ML VIAL IV STA (09:35)
[2016-10-19 10:01] LABS: BENZODIAZEPINE, URINE NEG (NEG); COCAINE,URINE NEG (NEG); PHENCYCLIDINE, URINE NEG (NEG)
[2016-10-19] MEDS: INSULIN ASPART 100 UNITS/ML 3 ML PEN SC SCH ×4 (10:01→21:00)
--- NOTE | 2016-10-19 13:37 | DIAGNOSTIC IMAGING REPORT ---
CT OF THE HEAD WITHOUT CONTRAST CLINICAL HISTORY: Acute mental status change. COMPARISON STUDY: Head CT September 27, 2016. CT DOSE: 614.27 mGy.cm TECHNIQUE: Helical axial images of the head were obtained without IV contrast. Automated exposure control was utilized for the study. A dose lowering technique was utilized adhering to the principles of ALARA. FINDINGS: No acute intracranial hemorrhage, midline shift or mass effect is present. Ventricular system is stable. Basilar cisterns are patent. There are no extra-axial collections. There are no findings to suggest acute dural sinus thrombosis or acute territorial infarct. There is no calvarial fracture. A right frontal scalp contusion is decreased in size since prior exam. IMPRESSION: No acute intracranial findings. Electronically signed by: Rolan Chan M.D. 10/19/2016 1:35 PM Dictated Date/Time: 10/19/2016 1:33 PM
[2016-10-19] MEDS ORDERED: LEVETIRACETAM IV 2,000 MG in DEXTROSE 5% 250ML 250 ML IV ONE (14:30)
[2016-10-19] MEDS ORDERED: LORAZEPAM INJ 2 MG in SYRINGE 1 ML IV ONE (14:30)
--- NOTE | 2016-10-19 14:31 | Neurology Consultation ---
Neurology Consultation Date of Consultation: Oct 19, 2016. Attending Physician: Erick Rice M.D. Primary Care Physician: Mingo Lin M.D. Reason for Consultation: In consultation for seizure management and encephalopathy History of Present Illness Source: patient, clinic records, hospital records This is a 50-year-old female who has been recently seen by myself in hospital consultation September 27 due to recurrent seizures and encephalopathy. Please see previous consult for more complete history of epilepsy. Patient did have a follow-up EEG done as an outpatient which was read by myself which was consistent with a diagnosis of generalized epilepsy. Patient on previous hospitalization had her Keppra increased to a max dose of 2000 mg twice a day. Patient continued on Trileptal with a therapeutic dose and Topamax 50 mg twice a day mostly for migraine prophylaxis. Upon reviewing her notes and history, the patient has been empirically treated with Sinemet to see if this would help her tremors. The patient does not have any clear diagnosis of Parkinson's. It is not clear whether the Sinemet has actually ever helped her tremors or not. Repeat CT of the head done today reporting images were reviewed by myself and unremarkable. Labs were reviewed. Patient noted to have elevated ammonia beyond what her baseline typically is. Tox screen was negative for other substances. Patient does have known nonalcoholic hepatic disease. According to nursing of the patient was up, moving, talking, at her baseline yesterday and then after her left the hospital acutely became unresponsive. It does not appear that the patient has received any of her oral medications as morning including her antiepileptic medications. Nursing reports that she is only said "ow" when they tried to move her. Unable to obtain history from patient due to acute encephalopathy. Past therapeutic trials: Patient has been on VNS back when she had an evaluation at [facility]. By 2014 Hz VNS was turned off presumably because she did not feel like it was helping. Patient has been on Topamax with past concerns of possibly contributing to her liver dysfunction (although not really known to do this) Dilantin Gabapentin Tegretol Lamictal with uncertain results Depakote was reported to work in the past, but caused issues with increased LFTs Zonegran appears to have been briefly tried. Patient reports about all the medication she is tried she feels like Keppra and Trileptal has helped the past. She denies any major side effects. No mood side effects from Her reported. Past Medical/Surgical History Nonalcoholic liver cirrhosis Diabetes type 2 Hypothyroidism generalized epilepsy Migraine headaches Asthma Bipolar type I with episodes of major depression Possible Parkinsonism Chronic pancytopenia Medical Problems: (1) Acute bronchitis Status: Acute (2) Acute hepatic encephalopathy Status: Acute (3) Alkaline phosphatase elevation Status: Acute (4) Anemia Status: Acute (5) Back pain Status: Acute (6) Bradycardia Status: Acute (7) Breakthrough seizure Status: Acute (8) Burn Status: Acute (9) Change in mental status Status: Acute (10) Change in mental status Status: Acute (11) Chronic low back pain Status: Acute (12) Closed head injury Status: Acute (13) Dehydration Status: Acute (14) Dizziness Status: Acute (15) Facial laceration Status: Acute (16) Fall Status: Acute (17) Fall Status: Acute (18) Fatigue Status: Acute (19) Hemorrhoid Status: Acute (20) Hepatic encephalopathy Status: Acute (21) Hepatic encephalopathy Status: Acute (22) Hepatic encephalopathy Status: Acute (23) Hepatic encephalopathy Status: Acute (24) Hepatic encephalopathy Status: Acute (25) Hepatic encephalopathy Status: Acute (26) Hepatic encephalopathy Status: Acute (27) Hepatic encephalopathy Status: Acute (28) Hyperammonemia Status: Acute (29) Hyperammonemia Status: Acute (30) Hyperammonemia Status: Acute (31) Hyperammonemia Status: Acute (32) Hypocalcemia Status: Acute (33) Hypocalcemia Status: Acute (34) Hypoglycemia Status: Acute (35) Hypokalemia Status: Acute (36) Hypomagnesemia Status: Acute (37) Increased ammonia level Status: Acute (38) Left foot pain Status: Acute (39) Leukopenia Status: Acute (40) Low back pain Status: Acute (41) Pain in pelvis Status: Acute (42) Pancytopenia Status: Acute (43) Right ear pain Status: Acute (44) Right groin pain Status: Acute (45) Right hip pain Status: Acute (46) Right upper lobe pneumonia Status: Acute (47) RUQ abdominal pain Status: Acute (48) Thrombocytopenia Status: Acute (49) Weakness Status: Acute (50) Weakness Status: Acute (51) Weakness Status: Acute (52) Weakness Status: Acute Family History Patient reported in the past that she is adopted and does not know her family history Social History Patient is normally independent in her activities of daily living. No reported drug use. Smoking Status: Never smoker Alcohol Use: none Drug Use: none Marital Status: Housing Status: lives with significant other Occupation Status: disabled Allergies Coded Allergies: Amoxicillin (Verified Allergy, Intermediate, HIVES, 08/13/16) Azithromycin (Verified Allergy, Intermediate, HIVES, 08/13/16) Baclofen (Verified Allergy, Intermediate, RASH, 08/13/16) Butalbital (Verified Allergy, Intermediate, HIVES, 08/13/16) Clarithromycin (Verified Allergy, Intermediate, RASH, 08/13/16) Dicyclomine (Verified Allergy, Intermediate, HIVES, 08/13/16) HIVES Penicillins (Verified Allergy, Intermediate, RASH, 08/13/16) PT STATES SHE GETS WELTS FROM CIPRO,LEVAQUIN ALLERGY PER DR ROBLES Tetracyclines (Verified Allergy, Intermediate, DOXYCYCLINE-HIVES, 08/13/16) Sulindac (Verified Allergy, Mild, ALLERGY LISTED "CLONDORAL"--HIVES, ) Adhesives (Verified Allergy, Unknown, RASH, DUODERM=RED,ITCHY, 08/13/16) PLASTIC TAPE IS OK!!! DUODERM=RED,ITCHY Metronidazole (Verified Allergy, Unknown, SEIZURE, 08/13/16) Tramadol (Verified Allergy, Unknown, SEIZURES, 08/13/16) Metoclopramide (Verified Adverse Reaction, Severe, SEIZURES, 08/13/16) Blueberry (Verified Adverse Reaction, Mild, STOMACH PAIN, 10/14/16) Furosemide (Verified Adverse Reaction, Unknown, HIVES, 08/13/16) Current Inpatient Medications Current Inpatient Medications Medications (Trade) Dose Ordered Sig/Danita Route Start Time Stop Time Status Last Admin Dose Admin Heparin Sodium (Porcine) (Heparin Sq 5000 Unit/0.5ml) 5,000 unit Q8 SQ 10/14/16 22:00 11/13/16 21:59 10/19/16 06:15 5,000 UNIT Ondansetron HCl (Zofran Inj) 4 mg Q6H PRN IV 10/14/16 18:30 11/13/16 18:29 Budesonide/ Formoterol Fumarate (Symbicort 160/ 4.5 Inh) 2 puffs BID INH 10/14/16 21:00 11/13/16 20:59 10/18/16 21:03 2 PUFFS Albuterol/ Ipratropium (Duoneb) 3 ml QIDR PRN INH 10/14/16 18:30 11/13/16 18:29 Glucose (Glucose 40% Gel) 15-30 GRAMS 15 GRAMS... UD PRN PO 10/14/16 19:15 11/13/16 19:14 Glucose (Glucose Chew Tab) 4-8 Tablets 4 Tabl... UD PRN PO 10/14/16 19:15 11/13/16 19:14 Dextrose (Dextrose 50% 50ML Syringe) 25-50ML OF 50% DW IV FOR... UD PRN IV 10/14/16 19:15 11/13/16 19:14 Glucagon (Glucagon Inj) 1 mg UD PRN SQ 10/14/16 19:15 11/13/16 19:14 Heparin Sodium (Porcine) (Heparin 100 Unit/ml 5ml Flush) 5 ml PRN PRN IV 10/15/16 02:45 11/14/16 02:44 10/19/16 10:12 5 ML Albuterol (Ventolin Hfa Inhaler) 2 puffs Q4H PRN INH 10/15/16 08:00 11/14/16 07:59 Epinephrine (Epipen) 0.3 mg UD PRN IM 10/15/16 08:00 11/14/16 07:59 Ferrous Sulfate (Feosol Tab) 325 mg QPM PO 10/15/16 21:00 11/14/16 20:59 10/18/16 21:06 325 MG Lactulose (Chronulac Syrup) 20 gm BID PO 10/15/16 09:00 11/14/16 08:59 10/18/16 21:03 20 GM Magnesium Oxide (Mag-Ox Tab) 400 mg TID PO 10/15/16 09:00 11/14/16 08:59 10/18/16 21:06 400 MG Mirtazapine (Remeron Tab) 15 mg HS PO 10/15/16 21:00 11/14/16 20:59 10/18/16 21:07 15 MG Multivitamins (Multivitamin Tab) 1 tab DAILY PO 10/15/16 09:00 11/14/16 08:59 10/18/16 09:12 1 TAB Ranitidine HCl (zANTac TAB) 150 mg BID PO 10/15/16 09:00 11/14/16 08:59 10/18/16 21:04 150 MG Rifaximin (Xifaxan Tab) 550 mg BID PO 10/15/16 09:00 11/14/16 08:59 10/18/16 21:05 550 MG Topiramate (Topamax Tab) 50 mg BID PO 10/15/16 09:00 11/14/16 08:59 10/18/16 21:07 50 MG Pantoprazole Sodium (Protonix Tab) 40 mg QAM PO 10/15/16 09:00 11/14/16 08:59 10/18/16 09:11 40 MG Lactobacillus Acidophilus (Floranex Tab) 4 tab TIDM PO 10/15/16 11:30 11/14/16 11:29 10/18/16 17:32 4 TAB Levothyroxine Sodium (Synthroid Tab) 75 mcg DAILYBB PO 10/15/16 08:45 11/14/16 08:44 10/18/16 05:42 75 MCG Insulin Aspart (novoLOG ASPART) SLIDING SCALE G... ACHS SC 10/15/16 11:00 11/14/16 10:59 10/19/16 13:35 1 UNITS Desvenlafaxine Succinate (Pristiq) 50 mg DAILY PO 10/16/16 09:00 11/15/16 08:59 10/18/16 09:13 50 MG Insulin Glargine (Toujeo Solostar) 15 units QAM SC 10/16/16 09:00 11/15/16 08:59 10/19/16 09:28 15 UNITS Potassium Chloride (Klor-Con Tab) 20 meq QAM PO 10/17/16 09:00 11/14/16 08:59 10/18/16 09:12 20 MEQ Oxcarbazepine (Trileptal) 600 mg BID PO 10/18/16 21:00 11/16/16 08:59 10/18/16 21:09 600 MG Trimethoprim/ Sulfamethoxazole (Septra Ds 800/ 160MG Tab) 1 tab Q12 PO 10/18/16 21:00 10/25/16 20:59 10/18/16 21:07 1 TAB Neomycin Sulfate (Neomycin Sulfate Tab) 1,000 mg QID PO 10/18/16 21:00 10/23/16 20:59 10/18/16 21:04 1,000 MG Lorazepam 2 mg/ Syringe 2 ml @ 0.5 mls/min NOW ONCE IV 10/19/16 14:30 10/19/16 14:33 Levetiracetam (Keppra) 2,000 mg BID IV 10/19/16 21:00 11/14/16 20:59 UNV Levetiracetam 2000 mg/Dextrose 270 ml @ 999 mls/hr ONE ONCE IV 10/19/16 14:30 10/19/16 14:46 Review of Systems Unable to obtain secondary to mental status Physical Exam Vital Signs (Past 24 Hrs): Date Time Temp Pulse Resp B/P (MAP) Pulse Ox O2 Delivery O2 Flow Rate FiO2 10/19/16 11:18 36.8 90 24 138/73 (94) 99 Room Air 10/19/16 08:58 36.6 96 18 140/76 (97) 99 Room Air 10/19/16 08:22 Room Air 10/19/16 07:40 36.7 94 16 150/69 (96) 99 Room Air 10/19/16 00:00 Room Air 10/18/16 23:11 36.3 96 20 137/76 (96) 96 Room Air 10/18/16 19:44 Room Air 10/18/16 15:42 Room Air 10/18/16 15:00 36.6 86 20 140/67 (91) 100 Room Air Gen.: Exam is limited by acute encephalopathy. Patient is lying in bed in no acute distress fairly unresponsive. HEENT: Normocephalic /atraumatic, no scleral icterus Heart: Regular rate and rhythm Extremities: No gross deformities or rashes noted Neurological examination: Mental status: Patient is extremely lethargic. Will barely respond to tactile stimulation. Initially would only repeat "yes" over and over again with each question. Later on would only say ow after deep nailbed stimulation Speech: No dysarthria noted with 2 words that she said Cranial nerve: Funduscopic examination was limited but no papilledema noted. Pupils equally round and reactive to light. Could not get the patient to participate in extraocular muscle testing. No facial asymmetry noted at rest. Facial sensation appears intact. Patient would not stick out her tongue. Hearing grossly intact to voice. Strength: Patient would withdraw all limbs from nail bed stimulation. Other ways was not spontaneously moving or moving to commands. Sensation: Grossly intact to deep nailbed stimulation Deep tendon reflexes: +1 in bilateral biceps, brachioradialis and patellar. Toes were downgoing to plantar stimulation Coordination: Could not do formal coordination testing secondary to encephalopathy Could not test gait secondary to encephalopathy Laboratory Results Past 24 Hours: 10/19/16 05:24 Test 10/19/16 05:24 10/19/16 09:30 10/19/16 10:07 10/19/16 11:13 Prothrombin Time 12.3 SECONDS (9.0-12.0) Prothromb Time International Ratio 1.1 (0.9-1.1) Anion Gap 6.0 mmol/L (3-11) Est Creatinine Clear Calc Drug Dose 173.0 ml/min Estimated GFR () 131.7 Estimated GFR (Non- 113.6 BUN/Creatinine Ratio 12.4 (10-20) Calcium Level 8.2 mg/dl (8.5-10.1) Total Bilirubin 1.8 mg/dl (0.2-1) Aspartate Amino Transf (AST/SGOT) 40 U/L (15-37) Alanine Aminotransferase (ALT/SGPT) 35 U/L (12-78) Alkaline Phosphatase 182 U/L (45-117) Total Protein 5.7 gm/dl (6.4-8.2) Albumin 2.9 gm/dl (3.4-5.0) Globulin 2.8 gm/dl (2.5-4.0) Albumin/Globulin Ratio 1.0 (0.9-2) Urine Opiates Screen NEG (NEG) Urine Methadone, Qualitative NEG (NEG) Urine Barbiturates NEG (NEG) Urine Phencyclidine (PCP) Level NEG (NEG) Ur Amphetamine/Methamphetamine NEG (NEG) MDMA (Ecstasy) Screen NEG (NEG) Urine Benzodiazepines Screen NEG (NEG) Urine Cocaine Metabolite NEG (NEG) Urine Marijuana (THC) NEG (NEG) Ammonia 154.0 umol/L (11-32) Bedside Glucose 196 mg/dl (70-90) Test 10/19/16 14:00 Imaging As noted above in history of present illness Impression This is 50-year-old female with EEG evidence of generalized epilepsy and recent frequent breakthrough seizures who presents with acute encephalopathy. Some of her encephalopathy could be secondary to hepatic encephalopathy but apparently the patient had been improving until yesterday. Due to witness activity concerning for seizure on the , her carbamazepine was increased to 600 mg 3 times a day based off of my recommendations over the phone. Due to sudden increase in encephalopathy yesterday her carbamazepine was switched back to twice a day dosing due to concerns that increased carbamazepine could've contributed to encephalopathy. In addition ammonia level was noted to be elevated again potentially indicating a component of hepatic encephalopathy. Carbamazepine is known to rarely cause hepatic toxicity, but uncertain if that the case in this situation. Sent an unresponsive state in the setting of a known epileptic is concerning for possible breakthrough seizures as cause for acute encephalopathy. In addition the patient has not had any of her antiepileptic medication this morning also concerning for potentially causing worsening encephalopathy secondary to nonconvulsive status. (Of note I don't have any evidence of nonconvulsive status at this time but should be considered in the differential) Plan I have switched the patient's PO Keppra to IV and given her extra is now in due to his antiepileptic medication doses this morning and concerned that this could cause her to go into status of untreated. In addition have instructed the nurse to give an IV dose of Ativan now to see if this wakes the patient up. If the patient wakes up after a single dose of Ativan, this would indicate that most of her encephalopathy today secondary to seizure. If the patient does not wake up with Ativan, less likely that ongoing seizures or a cause for encephalopathy. I discontinued Sinemet as it is not clear that the patient needs it. Sinemet was originally started for empiric treatment of nonspecific tremors and is not clear that the patient has Parkinson's disease or parkinsonism. Try simple why her medications and reduce risk of polypharmacy, I stop Sinemet for now. This can always be reconsidered at a later date We'll initiate IV Vimpat 50 mg twice a day for seizure prophylaxis since there is concern that higher doses of carbamazepine may have caused side effects. Once patient is able to take PO can switch Vimpat to 50 mg tabs twice a day. Uncertain of the patient still needs Topamax for migraine headaches. Could always reconsider stopping Topamax in the future to reduce polypharmacy. Rarely carbamazepine can be associated with hepatic toxicity. Agree with GI evaluation. If no clear cause for her increased ammonia and hepatic dysfunction , could consider reducing carbamazepine further and increasing Vimpat to see if this improves her hepatic function. If there is any questions or concerns, feel free to call/page me Future medications that could be considered in the future include a retrial of Lamictal (if tapered off Trileptal) as I am uncertain what the results were in the past with Lamictal. Otherwise if needed could aslo consider Fycompa, or Briviact. Could consider turning the VNS back on. Could also consider switching from Trileptal to Aptiom.
[2016-10-19] MEDS: SODIUM CHLORIDE 0.9% IV SCH (15:02)
[2016-10-19] MEDS: LACOSAMIDE IV SCH (15:02)
[2016-10-19] MEDS ORDERED: LACTULOSE 200GM/700ML WTR ENEMA PR ONE (17:00)
--- NOTE | 2016-10-19 17:03 | Progress Note ---
Subjective Date of Service: Oct 19, 2016. Subjective very concerning events that this am Della is not able to be awoken but for mild moaning to pain and repositining, she however has stable vitals including oxygenation and appears to be protecting airway, initial concerns for possible opiate intake were disproven by tox screen and no response to narcan concern for status, was also considered and Dr Fernandez did try a dose of ativan IV without response, since no change will move to tele and re evaluate even is only to protect airway , Dr Fernandez did ammend anti epileptic meds and changed to iv since unable to take po Problem List Medical Problems: (1) Acute bronchitis Status: Acute (2) Acute hepatic encephalopathy Status: Acute (3) Alkaline phosphatase elevation Status: Acute (4) Anemia Status: Acute (5) Back pain Status: Acute (6) Bradycardia Status: Acute (7) Breakthrough seizure Status: Acute (8) Burn Status: Acute (9) Change in mental status Status: Acute (10) Change in mental status Status: Acute (11) Chronic low back pain Status: Acute (12) Closed head injury Status: Acute (13) Dehydration Status: Acute (14) Dizziness Status: Acute (15) Facial laceration Status: Acute (16) Fall Status: Acute (17) Fall Status: Acute (18) Fatigue Status: Acute (19) Hemorrhoid Status: Acute (20) Hepatic encephalopathy Status: Acute (21) Hepatic encephalopathy Status: Acute (22) Hepatic encephalopathy Status: Acute (23) Hepatic encephalopathy Status: Acute (24) Hepatic encephalopathy Status: Acute (25) Hepatic encephalopathy Status: Acute (26) Hepatic encephalopathy Status: Acute (27) Hepatic encephalopathy Status: Acute (28) Hyperammonemia Status: Acute (29) Hyperammonemia Status: Acute (30) Hyperammonemia Status: Acute (31) Hyperammonemia Status: Acute (32) Hypocalcemia Status: Acute (33) Hypocalcemia Status: Acute (34) Hypoglycemia Status: Acute (35) Hypokalemia Status: Acute (36) Hypomagnesemia Status: Acute (37) Increased ammonia level Status: Acute (38) Left foot pain Status: Acute (39) Leukopenia Status: Acute (40) Low back pain Status: Acute (41) Pain in pelvis Status: Acute (42) Pancytopenia Status: Acute (43) Right ear pain Status: Acute (44) Right groin pain Status: Acute (45) Right hip pain Status: Acute (46) Right upper lobe pneumonia Status: Acute (47) RUQ abdominal pain Status: Acute (48) Thrombocytopenia Status: Acute (49) Weakness Status: Acute (50) Weakness Status: Acute (51) Weakness Status: Acute (52) Weakness Status: Acute Review of Systems Constitutional: + problem reported (unable to get ros due to obtunded state) Objective Vital Signs Date Time Temp Pulse Resp B/P (MAP) Pulse Ox O2 Delivery O2 Flow Rate FiO2 10/19/16 16:26 36.3 93 18 148/83 (104) 99 Room Air 10/19/16 16:00 Room Air 10/19/16 11:18 36.8 90 24 138/73 (94) 99 Room Air 10/19/16 08:58 36.6 96 18 140/76 (97) 99 Room Air 10/19/16 08:22 Room Air 10/19/16 07:40 36.7 94 16 150/69 (96) 99 Room Air 10/19/16 00:00 Room Air 10/18/16 23:11 36.3 96 20 137/76 (96) 96 Room Air 10/18/16 19:44 Room Air Physical Exam General Appearance: WD/WN, + moderate distress Eyes: PERRL, + pertinent finding (does more eyes with head movement) Respiratory/Chest: chest non-tender, lungs clear, normal breath sounds (but shallow breathing) Cardiovascular: regular rate, rhythm Abdomen: non tender, soft Extremities: no pedal edema, no calf tenderness Neurologic/Psychiatric: + depressed affect, + pertinent finding (obtunded except to pain) Laboratory Results Last 24 Hours Test 10/18/16 20:02 10/19/16 05:24 10/19/16 07:31 10/19/16 09:30 Bedside Glucose 231 mg/dl 193 mg/dl Prothrombin Time 12.3 SECONDS Prothromb Time International Ratio 1.1 Sodium Level 136 mmol/L Potassium Level 3.9 mmol/L Chloride Level 106 mmol/L Carbon Dioxide Level 24 mmol/L Anion Gap 6.0 mmol/L Blood Urea Nitrogen 6 mg/dl Creatinine 0.49 mg/dl Est Creatinine Clear Calc Drug Dose 173.0 ml/min Estimated GFR () 131.7 Estimated GFR (Non- 113.6 BUN/Creatinine Ratio 12.4 Random Glucose 180 mg/dl Calcium Level 8.2 mg/dl Total Bilirubin 1.8 mg/dl Aspartate Amino Transf (AST/SGOT) 40 U/L Alanine Aminotransferase (ALT/SGPT) 35 U/L Alkaline Phosphatase 182 U/L Total Protein 5.7 gm/dl Albumin 2.9 gm/dl Globulin 2.8 gm/dl Albumin/Globulin Ratio 1.0 Urine Opiates Screen NEG Urine Methadone, Qualitative NEG Urine Barbiturates NEG Urine Phencyclidine (PCP) Level NEG Ur Amphetamine/Methamphetamine NEG MDMA (Ecstasy) Screen NEG Urine Benzodiazepines Screen NEG Urine Cocaine Metabolite NEG Urine Marijuana (THC) NEG Test 10/19/16 10:07 10/19/16 11:13 10/19/16 15:19 Ammonia 154.0 umol/L Bedside Glucose 196 mg/dl Assessment and Plan 50yo female with 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 hepatic encephalopathy - ammonia level has risen modest reduction since given neomycin but now obtunded, will try lactulose enema her baseline ammonia level is in the 80-100. she is obtunded today and and previous this stay was asking for additional pain medicines, tox screen negative, no change with narcan She is having 3-4 bowel movements/day on lactulose BID. Continue lactulose + rifaximin,and neomycin when taking po, will use lactulose enema till then, and will have GI medicine weight in. abnormal LFTs - 2nd to STEVE/cirrhosis -lfts not dramatically different seizure d/o - the patient had a recent EEG in early September c/w seizures. . Dr. Frye did see and tried ativan to see if status epilepticus, no change so feels maybe hepatic encephalopathy RUL pneumonia - clinically stable. on aztreonam to cover for possible gram neg etiology. MRSA swab neg; since not taking po will revert back to iv given RUL did have ID see and send Quanterferon Gold, no immediate recommendations For diabetic care hold trujeo follow with ssi since not taking much po recent chest pain - had such for 3 days prior to admission. Suspect musculoskeletal, troponins negative. hypernatremic dehydration/ hypokalemia - resolved; DVT proph - heparin TID. transfer to higher level of care for airway and neurologic monitoring Continued [facility] stay due to: ambulation difficulties, multiple IV medications needed, other (waxing/waning mental status - cause??) Discharge planning: home with home health
[2016-10-19] MEDS: SODIUM CHLORIDE 0.9% 1000ML 1,000 ML IV SCH (17:18)
[2016-10-19] MEDS ORDERED: LACTULOSE SYRUP 200 GM, WATER, STERILE IRRIG 700 ML, BARCODE IDENTIFIER 1 EA PR ONE ×2 (17:30)
[2016-10-19] MEDS ORDERED: UNIT DOSE COMPOUND PO ONE (17:30)
[2016-10-19] MEDS ORDERED: CONSULT PHARMACY STA (19:26)
--- NOTE | 2016-10-19 20:21 | DIAGNOSTIC IMAGING REPORT ---
CHEST ONE VIEW PORTABLE CLINICAL HISTORY: NGT placement COMPARISON STUDY: Chest radiograph October 15, 2016. FINDINGS: A right internal jugular [id number] is in place. There is no pneumothorax or pleural effusion. Cardiomegaly is unchanged. There is no evidence of pulmonary edema. The tip of the nasogastric tube is within the gastric fundus. Electronic device projects over the left hemithorax. IMPRESSION: 1. Tip of nasogastric tube within the gastric fundus. 2. No acute cardiopulmonary findings. Electronically signed by: Rolan Chan M.D. 10/19/2016 8:19 PM Dictated Date/Time: 10/19/2016 8:17 PM
[2016-10-19] MEDS ORDERED: LEVETIRACETAM 1000 MG PO SCH (21:00)
[2016-10-19] MEDS: LACTULOSE SYRUP 20 GM/30 ML UDC NG SCH (21:15)
[2016-10-19] MEDS: RIFAXIMIN TAB 550 MG TAB NG SCH (21:16)
[2016-10-19] MEDS: LEVETIRACETAM IV 2,000 MG in DEXTROSE 5% 250ML 250 ML IV SCH (22:33)
[2016-10-20] VITALS (7 sets, daily range): BP systolic 119–156; BP diastolic 55–80; PULSE 80–98; TEMP 36.3–36.8; O2SAT 95–100
[2016-10-20] MEDS: SODIUM CHLORIDE 0.9% IV SCH ×2 (03:32→14:21)
[2016-10-20] MEDS: LACOSAMIDE IV SCH ×2 (03:32→14:21)
[2016-10-20 05:29] LABS: HEMATOCRIT 28.8 % (37-47); MEAN CELL VOLUME 101.1 fL (80-100); MEAN CORPUSCULAR HEMOGLOBIN 37.9 pg (25-34); MEAN CORPUSCULAR HGB CONC 37.5 g/dl (32-36); RED BLOOD COUNT 2.85 M/uL (4.2-5.4); WHITE BLOOD COUNT 3.54 K/uL (4.8-10.8)
[2016-10-20 05:30] LABS: MEAN PLATELET VOLUME 9.5 fL (7.4-10.4); PLATELET COUNT 98 K/uL (130-400)
[2016-10-20] MEDS: SODIUM CHLORIDE 0.9% 1000ML 1,000 ML IV SCH ×2 (05:46→17:05)
[2016-10-20 05:47] LABS: BUN/CREATININE RATIO 12.2 (10-20); CALCIUM 8.1 mg/dl (8.5-10.1); CREATININE 0.49 mg/dl (0.60-1.20)
[2016-10-20] MEDS: HEPARIN SOD 5000 UNIT/0.5 ML CARP SQ SCH ×3 (05:47→20:27)
[2016-10-20] MEDS: PANTOprazole SOD 40 MG TAB PO SCH (09:00)
[2016-10-20] MEDS: RIFAXIMIN TAB 550 MG TAB NG SCH (09:02)
[2016-10-20] MEDS: BUDESONIDE/FORMOTEROL FUMARATE 160/4.5 60 PUFFS/INHALER INH SCH ×2 (09:03→20:34)
[2016-10-20] MEDS: LACTULOSE SYRUP 20 GM/30 ML UDC NG SCH (09:03)
[2016-10-20] MEDS: RANITIDINE HCL 150 MG TAB PO SCH ×2 (09:05→20:22)
[2016-10-20] MEDS: POTASSIUM CHLORIDE 20 MEQ TABCR PO SCH (09:05)
[2016-10-20] MEDS: NEOMYCIN SULFATE 500 MG TAB PO SCH ×4 (09:06→20:21)
[2016-10-20] MEDS: OXCARBAZEPINE 300 MG TAB PO SCH ×2 (09:08→20:25)
[2016-10-20] MEDS: INSULIN ASPART 100 UNITS/ML 3 ML PEN SC SCH ×4 (09:10→20:37)
[2016-10-20] MEDS: LEVETIRACETAM IV 2,000 MG in DEXTROSE 5% 250ML 250 ML IV SCH ×2 (10:24→22:42)
--- NOTE | 2016-10-20 11:41 | GASTROINTESTINAL CONSULTATION ---
DATE OF CONSULTATION: 10/19/2016 DATE OF CONSULTATION: 10/19/2016. REFERRED BY: Dr. Rice. I was asked by Dr. Rice to consult on this woman for evaluation of encephalopathy and liver disease. 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 She has chronic hyperammonemia. She has a history of noncompliance with medications. She had an admission here at [facility] January 2016 with a similar presentation. This admission she was admitted on the and early and initially had some improvement in her ammonia level and mental function and over the past few days a rapid decline. In fact today she was very difficult to arouse and I was unable to get a history from her. She appeared resting comfortably and breathing comfortably. She was seen by neurology today who is removing some of her medications and changing some. There was some concern about possible seizure activity as well. Today because of being unarousable she has not been able to take her lactulose. Certainly this is contributing to some of her worsening encephalopathy. She has only had 1 or 2 bowel movements today. There has been no vomiting. There has been some concern about an infection, possible pneumonia and this is being treated. She has had no diarrhea. Her liver disease though chronic has been relatively stable. A recent abdominal ultrasound done a few months ago that showed just a coarsened hepatic echotexture consistent with cirrhosis but no focal masses. Abdominal CT done March again showed cirrhotic changes, mild splenomegaly, evidence of portal hypertension. PAST MEDICAL HISTORY: I reviewed her past medical history and medical records and she also has a past medical history of type 2 diabetes, gastroparesis, bipolar disorder, depression, chronic migraines, seizures, Parkinson's, hypothyroidism. FAMILY HISTORY: There is no family history of liver disease or gastrointestinal disease. SOCIAL HISTORY: Not significant for smoking or drinking. DRUG ALLERGIES: NUMEROUS AND INCLUDE AMOXICILLIN, AZITHROMYCIN, BACLOFEN, BUTALBITAL, CLARITHROMYCIN, DICYCLOMINE, PENICILLINS, TETRACYCLINE, SULINDAC, ADHESIVES, METRONIDAZOLE, TRAMADOL, METOCLOPRAMIDE, FUROSEMIDE. OUTPATIENT MEDICATIONS: Include Pristiq, iron, insulin, lactulose, lecithin, Sinemet, levothyroxine, Lutein, mag oxide, Remeron, Prilosec, Trileptal, ranitidine, Xifaxan, Topamax, zinc and numerous vitamins. REVIEW OF SYSTEMS: Difficult to obtain, but there has been no reports of productive cough, jaundice, joint swelling, diarrhea, hematuria, hematemesis, rectal bleeding, shortness of breath, trauma, change in vision or hearing. The rest is difficult to obtain because of her encephalopathy. PHYSICAL EXAMINATION: GENERAL: Reveals a woman lying in bed, barely arousable with shaking though appearing comfortable. SKIN: She has no obvious jaundice. Mouth is clear of lesions. NECK: Supple. CHEST: Clear. HEART: Regular. ABDOMEN: Has good bowel sounds and is soft. There are no masses or rebound. EXTREMITIES: Warm with fair distal pulses. NEUROLOGIC: She is encephalopathic and difficult to arouse. LABORATORY DATA: Show an ammonia today 154, yesterday was 189. Liver enzymes show an AST of 40, ALT of 35, alkaline phosphatase 182, total bilirubin 1.8, calcium of 8.2, glucose of 180. Sodium, potassium and chloride are normal. She had a head CT that showed no acute intracranial findings and this was done today. IMPRESSION: A 50-year-old woman with known NAFLD cirrhosis and history of encephalopathy and high ammonias. Certainly her liver disease is contributing to this and the fact that she is unable to take p.o. meds I would recommend giving her lactulose enemas. This can continue until she can take p.o. I would continue to aggressively follow her electrolytes and keep them monitored. I agree with neurology that polypharmacy is also contributing some to this and they have stopped some medications and changed others and this may help as well. I would watch her for signs of respiratory decompensation. Would also treat any infection since this can worsen encephalopathy. I would try to avoid opiates, benzos and any unneeded antidepressants or antipsychotics since these can also contribute to encephalopathy. Alkalosis and low potassium also can contribute, but her potassium is normal at this point. I discussed this with the nurse. CYNDI
--- NOTE | 2016-10-20 11:54 | Neurology Progress Notes ---
Neurology Progress Note Date of Service Oct 20, 2016. Subjective Patient is more alert and responsive today. No new neurological symptoms or concerns for seizures. Ammonia seems to have come down appropriately. Patient denies any new pain. Generally reports she doesn't feel well. Objective Date Time Temp Pulse Resp B/P (MAP) Pulse Ox O2 Delivery O2 Flow Rate FiO2 10/20/16 07:47 Room Air 10/20/16 07:22 36.3 98 18 147/77 (100) 100 Room Air 10/20/16 04:00 Room Air 10/20/16 04:00 36.8 93 20 156/71 (99) 95 Room Air 10/20/16 00:00 Room Air 10/19/16 23:20 37.4 101 20 134/88 (103) 99 Room Air 10/19/16 20:00 98 Room Air 10/19/16 19:54 36.6 93 20 165/84 (111) 99 Room Air 10/19/16 17:45 100 Room Air 10/19/16 17:45 37.2 87 18 151/72 (98) 100 Room Air 10/19/16 17:28 36.3 93 18 99 10/19/16 16:26 36.3 93 18 148/83 (104) 99 Room Air 10/19/16 16:00 Room Air Last 24 Hours Test 10/19/16 15:19 10/19/16 16:50 10/19/16 20:14 10/20/16 05:19 Bedside Glucose 162 mg/dl 152 mg/dl White Blood Count 3.54 K/uL Red Blood Count 2.85 M/uL Hemoglobin 10.8 g/dL Hematocrit 28.8 % Mean Corpuscular Volume 101.1 fL Mean Corpuscular Hemoglobin 37.9 pg Mean Corpuscular Hemoglobin Concent 37.5 g/dl RDW Standard Deviation 53.8 fL RDW Coefficient of Variation 14.7 % Platelet Count 98 K/uL Mean Platelet Volume 9.5 fL Sodium Level 141 mmol/L Potassium Level 4.0 mmol/L Chloride Level 113 mmol/L Carbon Dioxide Level 21 mmol/L Anion Gap 7.0 mmol/L Blood Urea Nitrogen 6 mg/dl Creatinine 0.49 mg/dl Est Creatinine Clear Calc Drug Dose 173.0 ml/min Estimated GFR () 131.7 Estimated GFR (Non- 113.6 BUN/Creatinine Ratio 12.2 Random Glucose 178 mg/dl Calcium Level 8.1 mg/dl Ammonia 99.0 umol/L Exam: Patient is groggy but oriented to person place and time. Able to give her own history. Follows commands appropriately. Pupils equally round and reactive to light. No facial asymmetry at rest. Speech is mumbled but no overt dysarthria or aphasia noted Moving all extremities equally Sensation grossly intact to touch Current Inpatient Medications Medications (Trade) Dose Ordered Sig/Danita Route Start Time Stop Time Status Last Admin Dose Admin Heparin Sodium (Porcine) (Heparin Sq 5000 Unit/0.5ml) 5,000 unit Q8 SQ 10/14/16 22:00 11/13/16 21:59 10/20/16 05:47 5,000 UNIT Ondansetron HCl (Zofran Inj) 4 mg Q6H PRN IV 10/14/16 18:30 11/13/16 18:29 Budesonide/ Formoterol Fumarate (Symbicort 160/ 4.5 Inh) 2 puffs BID INH 10/14/16 21:00 11/13/16 20:59 10/20/16 09:03 2 PUFFS Albuterol/ Ipratropium (Duoneb) 3 ml QIDR PRN INH 10/14/16 18:30 11/13/16 18:29 Glucose (Glucose 40% Gel) 15-30 GRAMS 15 GRAMS... UD PRN PO 10/14/16 19:15 11/13/16 19:14 Glucose (Glucose Chew Tab) 4-8 Tablets 4 Tabl... UD PRN PO 10/14/16 19:15 11/13/16 19:14 Dextrose (Dextrose 50% 50ML Syringe) 25-50ML OF 50% DW IV FOR... UD PRN IV 10/14/16 19:15 11/13/16 19:14 Glucagon (Glucagon Inj) 1 mg UD PRN SQ 10/14/16 19:15 11/13/16 19:14 Heparin Sodium (Porcine) (Heparin 100 Unit/ml 5ml Flush) 5 ml PRN PRN IV 10/15/16 02:45 11/14/16 02:44 10/19/16 10:12 5 ML Albuterol (Ventolin Hfa Inhaler) 2 puffs Q4H PRN INH 10/15/16 08:00 11/14/16 07:59 Epinephrine (Epipen) 0.3 mg UD PRN IM 10/15/16 08:00 11/14/16 07:59 Ranitidine HCl (zANTac TAB) 150 mg BID PO 10/15/16 09:00 11/14/16 08:59 10/20/16 09:05 150 MG Pantoprazole Sodium (Protonix Tab) 40 mg QAM PO 10/15/16 09:00 11/14/16 08:59 10/18/16 09:11 40 MG Insulin Aspart (novoLOG ASPART) SLIDING SCALE G... ACHS SC 10/15/16 11:00 11/14/16 10:59 10/20/16 09:10 1 UNITS Potassium Chloride (Klor-Con Tab) 20 meq QAM PO 10/17/16 09:00 11/14/16 08:59 10/20/16 09:05 20 MEQ Oxcarbazepine (Trileptal) 600 mg BID PO 10/18/16 21:00 11/16/16 08:59 10/20/16 09:08 600 MG Neomycin Sulfate (Neomycin Sulfate Tab) 1,000 mg QID PO 10/18/16 21:00 10/23/16 20:59 10/20/16 09:06 1,000 MG Lacosamide 100 mg/ Sodium Chloride 60 ml @ 120 mls/hr Q12H IV 10/19/16 15:00 11/18/16 14:44 10/20/16 03:32 120 MLS/HR Sodium Chloride 1,000 ml @ 80 mls/hr [id number] IV 10/19/16 16:48 11/18/16 16:47 10/20/16 05:46 80 MLS/HR Levetiracetam 2000 mg/Dextrose 270 ml @ 999 mls/hr Q12H IV 10/19/16 23:00 11/18/16 22:59 10/20/16 10:24 999 MLS/HR Lactulose (Chronulac Syrup) 20 gm BID NG 10/19/16 21:00 11/14/16 08:59 10/20/16 09:03 20 GM Rifaximin (Xifaxan Tab) 550 mg BID NG 10/19/16 21:00 11/14/16 08:59 10/20/16 09:02 550 MG Impression This is 50-year-old female with acute change in mental status on Friday and signs and symptoms concerning for breakthrough seizure earlier this week witnessed by primary team. Overall is not fully clear the cause of the patient' s acute mental status change, but my suspicion is that the patient may have had a breakthrough seizure with prolonged postictal state. In addition it is entirely possible that the patient may have had oxcarbazepine dose dependent hepatic toxicity causing increased ammonia and worsening hepatic encephalopathy (her oxcarbazepine had been increased earlier this week on the secondary to seizure activity). Plan Continue IV Keppra and Vimpat until the patient is able to swallow. When the patient is able to take PO meds can switch Keppra back to 2000 mg PO twice a day and switch Vimpat to 50 mg PO twice a day. When able to take by mouth, may resume Topamax 50 mg twice a day for migraine headaches. Can resume Tegretol (oxcarbazepine) 600 mg twice a day. Will likely not be able to go up on oxcarbazepine anymore due to concerns for dose- dependent hepatic toxicity. If the patient does well with Vimpat in the future, could consider decreasing or tapering off oxcarbazepine. I would continue to hold Sinemet as I'm not certain how much this is actually helping the patient. Can be reevaluated as an outpatient. If there is any questions or concerns, feel free to call/page me Future medications that could be considered in the future if needed include a retrial of Lamictal (if tapered off Trileptal) as I am uncertain what the results were in the past with Lamictal. Otherwise if needed could also consider Fycompa, or Briviact. Could consider turning the VNS back on. Could also consider switching from Trileptal to Aptiom. Patient has follow-up appointment with our physician bindery library technical assistant October 30 and should keep this appointment.
--- NOTE | 2016-10-20 12:48 | Progress Note ---
Subjective Date of Service: Oct 20, 2016. Subjective This patient was obtunded for almost 24 hours it is unclear the exact etiology and it may be multifactorial. She did have escalation of her Trileptal and there is a dose dependent hepatic toxicity associated with this which could've related to her elevated ammonia level and encephalopathy from that (toxic) however we also cannot exclude the fact that she may have had seizure given her recent EEG findings and remained in a post ictal state which then prevented her from taking her lactulose etc. and raised her ammonia. After institution of Vimpat, lactulose enema, an NG tube to supply her other meds her ammonia has declined to 99 and she is more arousable although not quite completely back to her baseline. We'll reinstitute her diet, change her medications to oral and remove her NG tube and begin insulin coverage Problem List Medical Problems: (1) Acute bronchitis Status: Acute (2) Acute hepatic encephalopathy Status: Acute (3) Alkaline phosphatase elevation Status: Acute (4) Anemia Status: Acute (5) Back pain Status: Acute (6) Bradycardia Status: Acute (7) Breakthrough seizure Status: Acute (8) Burn Status: Acute (9) Change in mental status Status: Acute (10) Change in mental status Status: Acute (11) Chronic low back pain Status: Acute (12) Closed head injury Status: Acute (13) Dehydration Status: Acute (14) Dizziness Status: Acute (15) Facial laceration Status: Acute (16) Fall Status: Acute (17) Fall Status: Acute (18) Fatigue Status: Acute (19) Hemorrhoid Status: Acute (20) Hepatic encephalopathy Status: Acute (21) Hepatic encephalopathy Status: Acute (22) Hepatic encephalopathy Status: Acute (23) Hepatic encephalopathy Status: Acute (24) Hepatic encephalopathy Status: Acute (25) Hepatic encephalopathy Status: Acute (26) Hepatic encephalopathy Status: Acute (27) Hepatic encephalopathy Status: Acute (28) Hyperammonemia Status: Acute (29) Hyperammonemia Status: Acute (30) Hyperammonemia Status: Acute (31) Hyperammonemia Status: Acute (32) Hypocalcemia Status: Acute (33) Hypocalcemia Status: Acute (34) Hypoglycemia Status: Acute (35) Hypokalemia Status: Acute (36) Hypomagnesemia Status: Acute (37) Increased ammonia level Status: Acute (38) Left foot pain Status: Acute (39) Leukopenia Status: Acute (40) Low back pain Status: Acute (41) Pain in pelvis Status: Acute (42) Pancytopenia Status: Acute (43) Right ear pain Status: Acute (44) Right groin pain Status: Acute (45) Right hip pain Status: Acute (46) Right upper lobe pneumonia Status: Acute (47) RUQ abdominal pain Status: Acute (48) Thrombocytopenia Status: Acute (49) Weakness Status: Acute (50) Weakness Status: Acute (51) Weakness Status: Acute (52) Weakness Status: Acute Review of Systems Constitutional: + weakness, + fatigue, + problem reported (her fatigue prevents full ros as still falls asleep during interview), No fever, No chills Objective Vital Signs Date Time Temp Pulse Resp B/P (MAP) Pulse Ox O2 Delivery O2 Flow Rate FiO2 10/20/16 11:32 36.4 83 18 145/58 (87) 99 Room Air 10/20/16 07:47 Room Air 10/20/16 07:22 36.3 98 18 147/77 (100) 100 Room Air 10/20/16 04:00 Room Air 10/20/16 04:00 36.8 93 20 156/71 (99) 95 Room Air 10/20/16 00:00 Room Air 10/19/16 23:20 37.4 101 20 134/88 (103) 99 Room Air 10/19/16 20:00 98 Room Air 10/19/16 19:54 36.6 93 20 165/84 (111) 99 Room Air 10/19/16 17:45 100 Room Air 10/19/16 17:45 37.2 87 18 151/72 (98) 100 Room Air 10/19/16 17:28 36.3 93 18 99 10/19/16 16:26 36.3 93 18 148/83 (104) 99 Room Air 10/19/16 16:00 Room Air Physical Exam General Appearance: WD/WN, + mild distress, + moderate distress Eyes: PERRL, EOMI Neck: supple, no JVD Respiratory/Chest: chest non-tender, lungs clear (but shallow effort), normal breath sounds Cardiovascular: regular rate, rhythm, no JVD Abdomen: normal bowel sounds, non tender, soft Extremities: no pedal edema, no calf tenderness Neurologic/Psychiatric: + depressed affect, + disoriented Laboratory Results Last 24 Hours Test 10/19/16 15:19 10/19/16 16:50 10/19/16 20:14 10/20/16 05:19 Bedside Glucose 162 mg/dl 152 mg/dl White Blood Count 3.54 K/uL Red Blood Count 2.85 M/uL Hemoglobin 10.8 g/dL Hematocrit 28.8 % Mean Corpuscular Volume 101.1 fL Mean Corpuscular Hemoglobin 37.9 pg Mean Corpuscular Hemoglobin Concent 37.5 g/dl RDW Standard Deviation 53.8 fL RDW Coefficient of Variation 14.7 % Platelet Count 98 K/uL Mean Platelet Volume 9.5 fL Sodium Level 141 mmol/L Potassium Level 4.0 mmol/L Chloride Level 113 mmol/L Carbon Dioxide Level 21 mmol/L Anion Gap 7.0 mmol/L Blood Urea Nitrogen 6 mg/dl Creatinine 0.49 mg/dl Est Creatinine Clear Calc Drug Dose 173.0 ml/min Estimated GFR () 131.7 Estimated GFR (Non- 113.6 BUN/Creatinine Ratio 12.2 Random Glucose 178 mg/dl Calcium Level 8.1 mg/dl Ammonia 99.0 umol/L Test 10/20/16 11:37 Bedside Glucose 190 mg/dl Assessment and Plan 50yo female with 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 Had worsened encephalopathy likely associated with medications hepatic encephalopathy -the patient was obtunded 10/19- and previous this stay was asking for additional pain medicines, tox screen negative, no change with narcan She was having 3-4 bowel movements/day on lactulose BID. Continue lactulose + rifaximin,and neomycin by NG tube and was given 1, lactulose enema she did improve and her ammonia reduced to 99 seizure d/o - the patient had a recent EEG in early September c/w seizures. . Dr. Frye did see and tried ativan to see if status epilepticus, no change so feels maybe hepatic encephalopathy however elevation of her Trileptal could've adversely affect the liver function and rates her ammonia level. The patient was started on Vimpat and instructions from Dr. Frye would be that when she resumes competent oral intake to convert her to oral Keppra Vimpat and Trileptal, the Trileptal being at her prehospital dosing. RUL pneumonia - clinically stable. on aztreonam to cover for possible gram neg etiology. MRSA swab neg; since not taking po will revert back to iv given RUL did have ID see and pending Gopi Aviles, no immediate recommendations For diabetic care will resume basal bolus insulin now that she is taking by mouth again recent chest pain - had such for 3 days prior to admission. Suspect musculoskeletal, troponins negative. Will not use opiate control given recent events of mental status changes DVT proph - heparin TID. Continued [facility] stay due to: ambulation difficulties, multiple IV medications needed, other (waxing/waning mental status - cause??) Discharge planning: home with home health
[2016-10-20] MEDS: LACTULOSE SYRUP 20 GM/30 ML UDC PO SCH (20:21)
[2016-10-20] MEDS: RIFAXIMIN TAB 550 MG TAB PO SCH (20:23)
[2016-10-20] MEDS: TOPIRAMATE 50 MG TAB PO SCH (20:24)
[2016-10-20] MEDS: INSULIN GLARGINE SOLOSTAR 100 UNITS/ML 3 ML PEN SC SCH (20:36)
[2016-10-21] MEDS: LACOSAMIDE IV SCH ×2 (02:32→14:16)
[2016-10-21] MEDS: SODIUM CHLORIDE 0.9% IV SCH ×2 (02:32→14:16)
[2016-10-21 04:03] VITALS: BP 124/68; PULSE 93; TEMP 37; O2SAT 95
[2016-10-21 05:41] LABS: BUN/CREATININE RATIO 14.3 (10-20); CALCIUM 7.4 mg/dl (8.5-10.1); CREATININE 0.43 mg/dl (0.60-1.20); POTASSIUM 3.8 mmol/L (3.5-5.1)
[2016-10-21] MEDS: SODIUM CHLORIDE 0.9% 1000ML 1,000 ML IV SCH (05:50)
[2016-10-21] MEDS: HEPARIN SOD 5000 UNIT/0.5 ML CARP SQ SCH ×3 (05:50→21:12)
[2016-10-21 07:23] VITALS: BP 127/68; PULSE 94; TEMP 36.7; O2SAT 99
[2016-10-21] MEDS: OXCARBAZEPINE 300 MG TAB PO SCH ×2 (07:45→21:14)
[2016-10-21] MEDS: RIFAXIMIN TAB 550 MG TAB PO SCH ×2 (07:45→21:09)
[2016-10-21] MEDS: LACTULOSE SYRUP 20 GM/30 ML UDC PO SCH ×2 (07:45→21:10)
[2016-10-21] MEDS: POTASSIUM CHLORIDE 20 MEQ TABCR PO SCH (07:45)
[2016-10-21] MEDS: NEOMYCIN SULFATE 500 MG TAB PO SCH ×4 (07:45→21:11)
[2016-10-21] MEDS: TOPIRAMATE 50 MG TAB PO SCH ×2 (07:45→21:11)
[2016-10-21] MEDS: PANTOprazole SOD 40 MG TAB PO SCH (07:45)
[2016-10-21] MEDS: BUDESONIDE/FORMOTEROL FUMARATE 160/4.5 60 PUFFS/INHALER INH SCH ×2 (07:45→21:12)
[2016-10-21] MEDS: RANITIDINE HCL 150 MG TAB PO SCH ×2 (07:46→21:11)
[2016-10-21] MEDS: INSULIN ASPART 100 UNITS/ML 3 ML PEN SC SCH ×4 (07:50→21:00)
--- NOTE | 2016-10-21 09:42 | Gastroenterology Progress Note ---
Progress Note Date of Service: Oct 21, 2016 Subjective Pt evaluation today including: conversation w/ patient, physical exam, chart review, lab review, review of studies, review of inpatient medication list Ms. Munson is a50 yr old female with bipolar disease, STEVE cirrhosis, who was admitted on 10/14 for excessive sleepiness and ammonia was elevated at 167. Ct of the head was normal, CXR, urine culture and blood cultures have been w/o evidence of infection. Her ammonia has been decreasing, today 79. Hb is at baseline at 10.9. She is afebrile with WBC 3.5. She remains lethargic, often with her eyes closed during her interview/exam but she answers the questions appropriately, being oriented to person, place, time and telling me about an appt scheduled today with neurology, including the name of the PA at 's office. She is eating well, having eating everything given to her for breakfast. Review of Systems Constitutional: + weakness, No fever Respiratory: No cough Cardiac: No chest pain Abdomen: No pain, No nausea, No vomiting, No diarrhea, No constipation, No GI bleeding, No dysphagia, No odynophagia, No jaundice Female : No dysuria Neuro: + problem reported (very slow in ther motions, her verbal responses, generally very weak), No memory loss Psych: + see HPI Endo: + fatigue Skin: No rash, No itch, No new/changing skin lesions Medications Current Inpatient Medications Medications (Trade) Dose Ordered Sig/Danita Route Start Time Stop Time Status Last Admin Dose Admin Heparin Sodium (Porcine) (Heparin Sq 5000 Unit/0.5ml) 5,000 unit Q8 SQ 10/14/16 22:00 11/13/16 21:59 10/21/16 05:50 5,000 UNIT Ondansetron HCl (Zofran Inj) 4 mg Q6H PRN IV 10/14/16 18:30 11/13/16 18:29 Budesonide/ Formoterol Fumarate (Symbicort 160/ 4.5 Inh) 2 puffs BID INH 10/14/16 21:00 11/13/16 20:59 10/20/16 09:03 2 PUFFS Albuterol/ Ipratropium (Duoneb) 3 ml QIDR PRN INH 10/14/16 18:30 11/13/16 18:29 Glucose (Glucose 40% Gel) 15-30 GRAMS 15 GRAMS... UD PRN PO 10/14/16 19:15 11/13/16 19:14 Glucose (Glucose Chew Tab) 4-8 Tablets 4 Tabl... UD PRN PO 10/14/16 19:15 11/13/16 19:14 Dextrose (Dextrose 50% 50ML Syringe) 25-50ML OF 50% DW IV FOR... UD PRN IV 10/14/16 19:15 11/13/16 19:14 Glucagon (Glucagon Inj) 1 mg UD PRN SQ 10/14/16 19:15 11/13/16 19:14 Heparin Sodium (Porcine) (Heparin 100 Unit/ml 5ml Flush) 5 ml PRN PRN IV 10/15/16 02:45 11/14/16 02:44 10/19/16 10:12 5 ML Albuterol (Ventolin Hfa Inhaler) 2 puffs Q4H PRN INH 10/15/16 08:00 11/14/16 07:59 Epinephrine (Epipen) 0.3 mg UD PRN IM 10/15/16 08:00 11/14/16 07:59 Ranitidine HCl (zANTac TAB) 150 mg BID PO 10/15/16 09:00 11/14/16 08:59 10/21/16 07:46 150 MG Pantoprazole Sodium (Protonix Tab) 40 mg QAM PO 10/15/16 09:00 11/14/16 08:59 10/21/16 07:45 40 MG Insulin Aspart (novoLOG ASPART) SLIDING SCALE G... ACHS SC 10/15/16 11:00 11/14/16 10:59 10/21/16 07:50 6 UNITS Potassium Chloride (Klor-Con Tab) 20 meq QAM PO 10/17/16 09:00 11/14/16 08:59 10/21/16 07:45 20 MEQ Oxcarbazepine (Trileptal) 600 mg BID PO 10/18/16 21:00 11/16/16 08:59 10/21/16 07:45 600 MG Neomycin Sulfate (Neomycin Sulfate Tab) 1,000 mg QID PO 10/18/16 21:00 10/23/16 20:59 10/21/16 07:45 1,000 MG Lacosamide 100 mg/ Sodium Chloride 60 ml @ 120 mls/hr Q12H IV 10/19/16 15:00 11/18/16 14:44 10/21/16 02:32 120 MLS/HR Sodium Chloride 1,000 ml @ 80 mls/hr [id number] IV 10/19/16 16:48 11/18/16 16:47 10/21/16 05:50 80 MLS/HR Levetiracetam 2000 mg/Dextrose 270 ml @ 999 mls/hr Q12H IV 10/19/16 23:00 11/18/16 22:59 10/20/16 22:42 999 MLS/HR Lactulose (Chronulac Syrup) 20 gm BID PO 10/20/16 21:00 11/14/16 08:59 10/21/16 07:45 20 GM Rifaximin (Xifaxan Tab) 550 mg BID PO 10/20/16 21:00 11/14/16 08:59 10/21/16 07:45 550 MG Insulin Glargine (Lantus Solostar Pen) 15 units PM SC 10/20/16 21:00 11/19/16 20:59 10/20/16 20:36 15 UNITS Topiramate (Topamax Tab) 50 mg BID PO 10/20/16 21:00 11/19/16 20:59 10/21/16 07:45 50 MG Objective Vital Signs Date Time Temp Pulse Resp B/P (MAP) Pulse Ox O2 Delivery O2 Flow Rate FiO2 10/21/16 07:45 Room Air 10/21/16 07:23 36.7 94 16 127/68 (87) 99 Room Air 10/21/16 04:03 37.0 93 20 124/68 (86) 95 Room Air 10/21/16 04:00 Room Air 10/21/16 00:00 Room Air 10/20/16 23:26 36.7 90 20 119/55 (76) 98 Room Air 10/20/16 20:00 Room Air 10/20/16 19:56 36.7 91 20 141/76 (97) 98 Room Air 10/20/16 16:00 100 Room Air 10/20/16 15:24 36.6 80 20 139/80 (99) 100 10/20/16 12:00 Room Air 10/20/16 11:32 36.4 83 18 145/58 (87) 99 Room Air Physical Exam General Appearance: no apparent distress Neck: supple, thyroid normal, no JVD Respiratory/Chest: normal breath sounds Cardiovascular: regular rate, rhythm, no JVD, no murmur Abdomen: non tender, soft Extremities: non-tender Neurologic/Psych: alert, normal mood/affect, oriented x 3, + pertinent finding (no asterixes) Skin: no jaundice Laboratory Results Last 24 Hours Test 10/20/16 11:37 10/20/16 16:43 10/20/16 20:36 10/21/16 05:08 Bedside Glucose 190 mg/dl 179 mg/dl 229 mg/dl Sodium Level 144 mmol/L Potassium Level 3.8 mmol/L Chloride Level 114 mmol/L Carbon Dioxide Level 23 mmol/L Anion Gap 7.0 mmol/L Blood Urea Nitrogen 6 mg/dl Creatinine 0.43 mg/dl Est Creatinine Clear Calc Drug Dose 197.2 ml/min Estimated GFR () 137.5 Estimated GFR (Non- 118.6 BUN/Creatinine Ratio 14.3 Random Glucose 153 mg/dl Calcium Level 7.4 mg/dl Ammonia 79.0 umol/L Test 10/21/16 07:32 Bedside Glucose 150 mg/dl Assessment and Plan Ms. Munson is a 50 yr old female admitted 8 days ago with lethargy/sleepiness. At the time her ammonia was very high. It has improved but her affect remains very dull. No triggers of hep enceph wer found and she does not have asterixes. I suspect her dull affect, general weakness and sleepiness are more related to her psych issues and medications than hepatic encephalopathy though this certainly may be contributing. . Plan: 1. Appreciate continued re-evaluation by psych and neuro. 2. As much as possible, would avoid meds with sedating effect specifically benzodiazepines, sedating antidepressants and pain medications. 3. Would continue Rifaxamin and continue to titrate lactulose to affect 3 BMs/ day - and current I&O records are showing this. 4. Unfortunately, she has been previously evaluated by the liver transplant team and thought to be a poor candidate due to psych issues. 5. No further recommendations at this time. GI will follow peripherally during this hospitalization and will continue OP GI f/u by Dr. Johns. I have seen, examined, and agree with the exam as outlined above by JOSH Wagner. -Mild HE, possibly from constipation -Continue current therapy, monitor electrolytes -Recheck UA
[2016-10-21] MEDS: LEVETIRACETAM IV 2,000 MG in DEXTROSE 5% 250ML 250 ML IV SCH ×2 (10:51→22:22)
[2016-10-21 11:25] VITALS: BP 125/70; PULSE 89; TEMP 36.6; O2SAT 96
[2016-10-21 12:39] LABS: QUANTIF TB AG-NIL 0.01 IU/ML; QUANTIFERON NIL 0.02 IU/ML
[2016-10-21 15:55] VITALS: BP 116/75; PULSE 85; TEMP 36.8; O2SAT 100
[2016-10-21 19:39] VITALS: BP 123/73; PULSE 89; TEMP 37.5; O2SAT 97
--- NOTE | 2016-10-21 21:00 | Progress Note ---
Subjective Date of Service: Oct 21, 2016. Subjective Pt evaluation today including: conversation w/ patient, physical exam, chart review, lab review, review of studies, review of inpatient medication list Pain: denies abd pain, chest pain PO Intake: improved Voiding: liu catheter in place pt feeling better today knows where she is, the day, date, and year denied any complaints for me today no obvious seizure activity or spells reported by staff Problem List Medical Problems: (1) Acute bronchitis Status: Acute (2) Acute hepatic encephalopathy Status: Acute (3) Alkaline phosphatase elevation Status: Acute (4) Anemia Status: Acute (5) Back pain Status: Acute (6) Bradycardia Status: Acute (7) Breakthrough seizure Status: Acute (8) Burn Status: Acute (9) Change in mental status Status: Acute (10) Change in mental status Status: Acute (11) Chronic low back pain Status: Acute (12) Closed head injury Status: Acute (13) Dehydration Status: Acute (14) Dizziness Status: Acute (15) Facial laceration Status: Acute (16) Fall Status: Acute (17) Fall Status: Acute (18) Fatigue Status: Acute (19) Hemorrhoid Status: Acute (20) Hepatic encephalopathy Status: Acute (21) Hepatic encephalopathy Status: Acute (22) Hepatic encephalopathy Status: Acute (23) Hepatic encephalopathy Status: Acute (24) Hepatic encephalopathy Status: Acute (25) Hepatic encephalopathy Status: Acute (26) Hepatic encephalopathy Status: Acute (27) Hepatic encephalopathy Status: Acute (28) Hyperammonemia Status: Acute (29) Hyperammonemia Status: Acute (30) Hyperammonemia Status: Acute (31) Hyperammonemia Status: Acute (32) Hypocalcemia Status: Acute (33) Hypocalcemia Status: Acute (34) Hypoglycemia Status: Acute (35) Hypokalemia Status: Acute (36) Hypomagnesemia Status: Acute (37) Increased ammonia level Status: Acute (38) Left foot pain Status: Acute (39) Leukopenia Status: Acute (40) Low back pain Status: Acute (41) Pain in pelvis Status: Acute (42) Pancytopenia Status: Acute (43) Right ear pain Status: Acute (44) Right groin pain Status: Acute (45) Right hip pain Status: Acute (46) Right upper lobe pneumonia Status: Acute (47) RUQ abdominal pain Status: Acute (48) Thrombocytopenia Status: Acute (49) Weakness Status: Acute (50) Weakness Status: Acute (51) Weakness Status: Acute (52) Weakness Status: Acute Review of Systems Constitutional: No fever Respiratory: No cough, No shortness of breath, No dyspnea on exertion Cardiac: No chest pain Abdomen: No pain Objective Vital Signs Date Time Temp Pulse Resp B/P (MAP) Pulse Ox O2 Delivery O2 Flow Rate FiO2 10/21/16 19:39 37.5 89 18 123/73 (90) 97 Room Air 10/21/16 16:00 Room Air 10/21/16 15:55 36.8 85 20 116/75 (89) 100 Room Air 10/21/16 12:00 Room Air 10/21/16 11:25 36.6 89 16 125/70 (88) 96 Room Air 10/21/16 07:45 Room Air 10/21/16 07:23 36.7 94 16 127/68 (87) 99 Room Air 10/21/16 04:03 37.0 93 20 124/68 (86) 95 Room Air 10/21/16 04:00 Room Air 10/21/16 00:00 Room Air 10/20/16 23:26 36.7 90 20 119/55 (76) 98 Room Air Physical Exam General Appearance: no apparent distress, + pertinent finding (looks older than stated age but in comparison to previous exams looks overall improved; a/o x 3) ENT: pharynx normal (MMM, no thrush) Neck: no JVD Respiratory/Chest: lungs clear, no respiratory distress, no accessory muscle use Cardiovascular: regular rate, rhythm, no gallop, no murmur Abdomen: normal bowel sounds, non tender, soft, no organomegaly Extremities: no pedal edema Neurologic/Psychiatric: alert, oriented x 3, + depressed affect, + pertinent finding (no asterixis (mild resting tremor but no true asterixis)) Laboratory Results Last 24 Hours Test 10/21/16 05:08 10/21/16 07:32 10/21/16 11:16 10/21/16 16:21 Sodium Level 144 mmol/L Potassium Level 3.8 mmol/L Chloride Level 114 mmol/L Carbon Dioxide Level 23 mmol/L Anion Gap 7.0 mmol/L Blood Urea Nitrogen 6 mg/dl Creatinine 0.43 mg/dl Est Creatinine Clear Calc Drug Dose 197.2 ml/min Estimated GFR () 137.5 Estimated GFR (Non- 118.6 BUN/Creatinine Ratio 14.3 Random Glucose 153 mg/dl Calcium Level 7.4 mg/dl Ammonia 79.0 umol/L Bedside Glucose 150 mg/dl 279 mg/dl 169 mg/dl Test 10/21/16 20:20 Bedside Glucose 153 mg/dl Assessment and Plan 50yo female with cirrhosis 2nd to STEVE and multiple hospitalizations in the past for hepatic encephalopathy who presented with altered MS due to hepatic encephalopathy and possibly other metabolic causes (hypernatremia, hypoglycemia , etc). 1. encephalopathy - at admission was thought to be mainly hepatic encephalopathy along with other metabolic derangements in the setting of RUL pneumonia. Her encephalopathy resolved, then returned last week despite ongoing HE treatment (lactulose, rifaximin). There was suspicion of breakthrough seizures which led to increase in her seizure meds. Her ammonia levels then increased once again leading to addition of neomycin. Overall she is about at baseline today with normal Na, normal glucose, and baseline ammonia level. No recent reported seizures. 2. hepatic encephalopathy - remains on triple therapy (rifaximin, lactulose, and neomycin). Ammonia level 79 today. No asterixis on exam. mentation improved. can likely d/c neomycin in am but continue chronic agents. appreciate GI consultation. 3. hypernatremic dehydration - resolved. 4. hypokalemia - resolved. 5. hypoglycemia - resolved; has not recurred. 6. seizure d/o - the patient had a recent EEG in early September c/w seizures. Her keppra dose was increased to 2000mg BID at that time due to concern of breakthrough seizures. Last week there was concern of additional seizures while hospitalized. Her trileptal was increased from BID dosing to TID. After doing such her mental status worsened and she became lethargic. At that time her ammonia levels yvette again despite being on lactulose & rifaximin. There was concern her trileptal had caused hepatic dysfunction leading to worsening ammonia. Thus, it was lowered back to BID dosing and vimpat BID was added by neurology. Overall she has been stable from seizure standpoint since these changes. Appreciate neurology consultation. CT head and EEG reviewed. 7. abnormal LFTs - 2nd to cirrhosis - at baseline. 8. prolonged QTc interval - most recent EKG with resolution of such. 9. RUL pneumonia - completed 5 days of Rx. 10. DVT proph - heparin TID. 11. anemia/thrombocytopenia - 2nd to cirrhosis - at baseline. Repeat CBC 10/20 stable. 12. FEN - stop fluids, eating is better. 13. asthma - not in exacerbation. Duoneb prn. Symbicort BID. 14. hypothyroidism - recent TSH was acceptable. Cont synthroid. 15. GERD - zantac. 16. T2DM - control acceptable. PT, OT left message for 10/14 and 10/15 and 10/21/16 once neuropsych status is stable can likely d/c home with she has been in SNF in the past, and although this is probably her best option, both she and her typically prefer home with HH Continued [facility] stay due to: ambulation difficulties, multiple IV medications needed, other (resolving hepatic encephalopathy, recent suspected seizures) Discharge planning: home with home health
[2016-10-21] MEDS: INSULIN GLARGINE SOLOSTAR 100 UNITS/ML 3 ML PEN SC SCH (21:15)
[2016-10-21 23:23] VITALS: BP 162/80; PULSE 90; TEMP 37; O2SAT 97
[2016-10-22] VITALS (8 sets, daily range): BP systolic 107–146; BP diastolic 68–80; PULSE 64–101; TEMP 36.7–36.9; O2SAT 95–99
[2016-10-22] MEDS: SODIUM CHLORIDE 0.9% IV SCH ×2 (02:30→14:45)
[2016-10-22] MEDS: LACOSAMIDE IV SCH ×2 (02:30→14:45)
[2016-10-22 05:52] LABS: BUN/CREATININE RATIO 15.1 (10-20); CALCIUM 7.8 mg/dl (8.5-10.1); CREATININE 0.43 mg/dl (0.60-1.20); MAGNESIUM 1.5 mg/dl (1.8-2.4); POTASSIUM 3.8 mmol/L (3.5-5.1)
[2016-10-22] MEDS: HEPARIN SOD 5000 UNIT/0.5 ML CARP SQ SCH ×3 (06:11→21:01)
[2016-10-22] MEDS ORDERED: SODIUM CHLORIDE 0.45% 1000ML 1,000 ML IV SCH (07:45)
[2016-10-22] MEDS: BUDESONIDE/FORMOTEROL FUMARATE 160/4.5 60 PUFFS/INHALER INH SCH ×2 (07:57→20:45)
[2016-10-22] MEDS: OXCARBAZEPINE 300 MG TAB PO SCH ×2 (08:01→20:47)
[2016-10-22] MEDS: PANTOprazole SOD 40 MG TAB PO SCH (08:01)
[2016-10-22] MEDS: TOPIRAMATE 50 MG TAB PO SCH ×2 (08:01→20:46)
[2016-10-22] MEDS: RANITIDINE HCL 150 MG TAB PO SCH ×2 (08:01→20:48)
[2016-10-22] MEDS: LACTULOSE SYRUP 20 GM/30 ML UDC PO SCH ×2 (08:01→20:45)
[2016-10-22] MEDS: NEOMYCIN SULFATE 500 MG TAB PO SCH ×3 (08:01→16:47)
[2016-10-22] MEDS: MAGNESIUM SULFATE 1GM / D5W 1 GM in PREMIXED IN D5W 100 ML IV SCH ×2 (08:01→09:29)
[2016-10-22] MEDS: POTASSIUM CHLORIDE 20 MEQ TABCR PO SCH (08:01)
[2016-10-22] MEDS: RIFAXIMIN TAB 550 MG TAB PO SCH ×2 (08:01→20:48)
[2016-10-22] MEDS: INSULIN ASPART 100 UNITS/ML 3 ML PEN SC SCH ×4 (08:05→21:00)
--- NOTE | 2016-10-22 08:56 | Gastroenterology Progress Note ---
Progress Note Date of Service: Oct 22, 2016 Subjective Pt evaluation today including: conversation w/ patient, physical exam, chart review, lab review, review of studies, review of inpatient medication list Ms. Munson is a 50 yr old female admitted on 10/21/16 for weakness, lethargy in the setting of bipolar disease and STEVE cirrhosis with prior hepatic encephalopathy. Ammonia on arrival 167, this morning ammonia 85. Pt much more awake this morning. Able to sit on a bedside commode, bearing some weight though still needs assistance. 2 BMs yesterday, one thus far today. Hb stable and no melena or hematochezia. Denies nausea or abdominal pain. Review of Systems Constitutional: + weakness (improved), No fever Respiratory: No cough Cardiac: No chest pain Abdomen: No pain Musculoskeletal: No joint pain Female : No dysuria Neuro: No memory loss Psych: + depression symptoms (chronic, denies thoughts of self harm) Endo: + fatigue Skin: No rash, No jaundice Medications Current Inpatient Medications Medications (Trade) Dose Ordered Sig/Danita Route Start Time Stop Time Status Last Admin Dose Admin Heparin Sodium (Porcine) (Heparin Sq 5000 Unit/0.5ml) 5,000 unit Q8 SQ 10/14/16 22:00 11/13/16 21:59 10/22/16 06:11 5,000 UNIT Ondansetron HCl (Zofran Inj) 4 mg Q6H PRN IV 10/14/16 18:30 11/13/16 18:29 Budesonide/ Formoterol Fumarate (Symbicort 160/ 4.5 Inh) 2 puffs BID INH 10/14/16 21:00 11/13/16 20:59 10/21/16 21:12 2 PUFFS Albuterol/ Ipratropium (Duoneb) 3 ml QIDR PRN INH 10/14/16 18:30 11/13/16 18:29 Glucose (Glucose 40% Gel) 15-30 GRAMS 15 GRAMS... UD PRN PO 10/14/16 19:15 11/13/16 19:14 Glucose (Glucose Chew Tab) 4-8 Tablets 4 Tabl... UD PRN PO 10/14/16 19:15 11/13/16 19:14 Dextrose (Dextrose 50% 50ML Syringe) 25-50ML OF 50% DW IV FOR... UD PRN IV 10/14/16 19:15 11/13/16 19:14 Glucagon (Glucagon Inj) 1 mg UD PRN SQ 10/14/16 19:15 11/13/16 19:14 Heparin Sodium (Porcine) (Heparin 100 Unit/ml 5ml Flush) 5 ml PRN PRN IV 10/15/16 02:45 11/14/16 02:44 10/22/16 05:25 5 ML Albuterol (Ventolin Hfa Inhaler) 2 puffs Q4H PRN INH 10/15/16 08:00 11/14/16 07:59 Epinephrine (Epipen) 0.3 mg UD PRN IM 10/15/16 08:00 11/14/16 07:59 Ranitidine HCl (zANTac TAB) 150 mg BID PO 10/15/16 09:00 11/14/16 08:59 10/22/16 08:01 150 MG Pantoprazole Sodium (Protonix Tab) 40 mg QAM PO 10/15/16 09:00 11/14/16 08:59 10/22/16 08:01 40 MG Insulin Aspart (novoLOG ASPART) SLIDING SCALE G... ACHS SC 10/15/16 11:00 11/14/16 10:59 10/22/16 08:05 4 UNITS Potassium Chloride (Klor-Con Tab) 20 meq QAM PO 10/17/16 09:00 11/14/16 08:59 10/22/16 08:01 20 MEQ Oxcarbazepine (Trileptal) 600 mg BID PO 10/18/16 21:00 11/16/16 08:59 10/22/16 08:01 600 MG Neomycin Sulfate (Neomycin Sulfate Tab) 1,000 mg QID PO 10/18/16 21:00 10/23/16 20:59 10/22/16 08:01 1,000 MG Lacosamide 100 mg/ Sodium Chloride 60 ml @ 120 mls/hr Q12H IV 10/19/16 15:00 11/18/16 14:44 10/22/16 02:30 120 MLS/HR Levetiracetam 2000 mg/Dextrose 270 ml @ 999 mls/hr Q12H IV 10/19/16 23:00 11/18/16 22:59 10/21/16 22:22 999 MLS/HR Lactulose (Chronulac Syrup) 20 gm BID PO 10/20/16 21:00 11/14/16 08:59 10/22/16 08:01 20 GM Rifaximin (Xifaxan Tab) 550 mg BID PO 10/20/16 21:00 11/14/16 08:59 10/22/16 08:01 550 MG Insulin Glargine (Lantus Solostar Pen) 15 units PM SC 10/20/16 21:00 11/19/16 20:59 10/21/16 21:15 15 UNITS Topiramate (Topamax Tab) 50 mg BID PO 10/20/16 21:00 11/19/16 20:59 10/22/16 08:01 50 MG Sodium Chloride 1,000 ml @ 100 mls/hr Q10H IV 10/22/16 07:45 10/22/16 12:44 10/22/16 08:00 100 MLS/HR Magnesium Sulfate 1 gm/Prmx 100 ml @ 100 mls/hr Q1H IV 10/22/16 08:00 10/22/16 09:59 10/22/16 08:01 100 MLS/HR Objective Vital Signs Date Time Temp Pulse Resp B/P (MAP) Pulse Ox O2 Delivery O2 Flow Rate FiO2 10/22/16 07:10 36.8 84 18 107/68 (81) 99 Room Air 10/22/16 04:21 36.9 64 18 146/80 (102) 99 Room Air 10/22/16 04:00 Room Air 10/22/16 00:00 Room Air 10/21/16 23:23 37.0 90 20 162/80 (107) 97 Room Air 10/21/16 20:00 Room Air 10/21/16 19:39 37.5 89 18 123/73 (90) 97 Room Air 10/21/16 16:00 Room Air 10/21/16 15:55 36.8 85 20 116/75 (89) 100 Room Air 10/21/16 12:00 Room Air 10/21/16 11:25 36.6 89 16 125/70 (88) 96 Room Air Physical Exam General Appearance: no apparent distress ENT: pharynx normal Neck: supple, thyroid normal, no JVD Respiratory/Chest: lungs clear Cardiovascular: regular rate, rhythm, no JVD, no murmur Abdomen: non tender, soft Extremities: non-tender Neurologic/Psych: alert, normal mood/affect, oriented x 3 Skin: normal color, no jaundice Laboratory Results Last 24 Hours Test 10/21/16 11:16 10/21/16 16:21 10/21/16 20:20 10/22/16 05:30 Bedside Glucose 279 mg/dl 169 mg/dl 153 mg/dl Sodium Level 147 mmol/L Potassium Level 3.8 mmol/L Chloride Level 118 mmol/L Carbon Dioxide Level 25 mmol/L Anion Gap 4.0 mmol/L Blood Urea Nitrogen 6 mg/dl Creatinine 0.43 mg/dl Est Creatinine Clear Calc Drug Dose 197.2 ml/min Estimated GFR () 137.5 Estimated GFR (Non- 118.6 BUN/Creatinine Ratio 15.1 Random Glucose 154 mg/dl Calcium Level 7.8 mg/dl Magnesium Level 1.5 mg/dl Ammonia 85.0 umol/L Test 10/22/16 07:19 Bedside Glucose 149 mg/dl Assessment and Plan Ms. Munson is a 50 yr old female admitted 8 days ago with lethargy/sleepiness. At the time her ammonia was very high. It has improved but her affect remains very dull. No triggers of hep enceph wer found and she does not have asterixes. I suspect her dull affect, general weakness and sleepiness are more related to her psych issues and medications than hepatic encephalopathy though this certainly may be contributing. . Plan: 1. Appreciate continued re-evaluation by psych and neuro. 2. As much as possible, would avoid meds with sedating effect specifically benzodiazepines, sedating antidepressants and pain medications. 3. Would continue Rifaxamin and continue to titrate lactulose to affect 3 BMs/ day - and current I&O records are showing this. 4. Unfortunately, she has been previously evaluated by the liver transplant team and thought to be a poor candidate due to psych issues. 5. No further recommendations at this time. GI will follow peripherally during this hospitalization and will continue OP GI f/u by Dr. Johns.
[2016-10-22] MEDS: LEVETIRACETAM IV 2,000 MG in DEXTROSE 5% 250ML 250 ML IV SCH ×2 (11:01→23:18)
[2016-10-22] MEDS: ONDANSETRON INJ 2 MG/ML 2 ML VIAL IV PRN ×2 (11:32→17:36)
[2016-10-22] MEDS: INSULIN GLARGINE SOLOSTAR 100 UNITS/ML 3 ML PEN SC SCH (21:01)
--- NOTE | 2016-10-22 21:12 | Progress Note ---
Subjective Date of Service: Oct 22, 2016. Subjective Pt evaluation today including: conversation w/ patient, conversation w/ family ( at bedside), physical exam, chart review, lab review, review of inpatient medication list Pain: denies PO Intake: had emesis several times today after breakfast Voiding: liu catheter in place patient much more awake and alert oriented happy with her progress no seizure activity per staff wants her to have rehab at a SNF before going home Problem List Medical Problems: (1) Acute bronchitis Status: Acute (2) Acute hepatic encephalopathy Status: Acute (3) Alkaline phosphatase elevation Status: Acute (4) Anemia Status: Acute (5) Back pain Status: Acute (6) Bradycardia Status: Acute (7) Breakthrough seizure Status: Acute (8) Burn Status: Acute (9) Change in mental status Status: Acute (10) Change in mental status Status: Acute (11) Chronic low back pain Status: Acute (12) Closed head injury Status: Acute (13) Dehydration Status: Acute (14) Dizziness Status: Acute (15) Facial laceration Status: Acute (16) Fall Status: Acute (17) Fall Status: Acute (18) Fatigue Status: Acute (19) Hemorrhoid Status: Acute (20) Hepatic encephalopathy Status: Acute (21) Hepatic encephalopathy Status: Acute (22) Hepatic encephalopathy Status: Acute (23) Hepatic encephalopathy Status: Acute (24) Hepatic encephalopathy Status: Acute (25) Hepatic encephalopathy Status: Acute (26) Hepatic encephalopathy Status: Acute (27) Hepatic encephalopathy Status: Acute (28) Hyperammonemia Status: Acute (29) Hyperammonemia Status: Acute (30) Hyperammonemia Status: Acute (31) Hyperammonemia Status: Acute (32) Hypocalcemia Status: Acute (33) Hypocalcemia Status: Acute (34) Hypoglycemia Status: Acute (35) Hypokalemia Status: Acute (36) Hypomagnesemia Status: Acute (37) Increased ammonia level Status: Acute (38) Left foot pain Status: Acute (39) Leukopenia Status: Acute (40) Low back pain Status: Acute (41) Pain in pelvis Status: Acute (42) Pancytopenia Status: Acute (43) Right ear pain Status: Acute (44) Right groin pain Status: Acute (45) Right hip pain Status: Acute (46) Right upper lobe pneumonia Status: Acute (47) RUQ abdominal pain Status: Acute (48) Thrombocytopenia Status: Acute (49) Weakness Status: Acute (50) Weakness Status: Acute (51) Weakness Status: Acute (52) Weakness Status: Acute Review of Systems Constitutional: No fever Respiratory: No cough, No shortness of breath Cardiac: No chest pain Abdomen: + nausea, + vomiting, No pain Objective Vital Signs Date Time Temp Pulse Resp B/P (MAP) Pulse Ox O2 Delivery O2 Flow Rate FiO2 10/22/16 19:46 36.7 101 16 113/80 (91) 99 Room Air 10/22/16 15:13 36.8 87 18 124/74 (91) 98 Room Air 10/22/16 12:30 Room Air 10/22/16 11:07 36.8 86 18 137/79 (98) 99 Room Air 10/22/16 09:33 Room Air 10/22/16 07:45 Room Air 10/22/16 07:10 36.8 84 18 107/68 (81) 99 Room Air 10/22/16 04:21 36.9 64 18 146/80 (102) 99 Room Air 10/22/16 04:00 Room Air 10/22/16 00:00 Room Air 10/21/16 23:23 37.0 90 20 162/80 (107) 97 Room Air Physical Exam General Appearance: no apparent distress, + pertinent finding ENT: pharynx normal Neck: no JVD Respiratory/Chest: lungs clear, no respiratory distress, no accessory muscle use Cardiovascular: regular rate, rhythm, no gallop, no murmur Abdomen: normal bowel sounds, non tender, soft, no organomegaly, + pertinent finding (mild distension but nontender and soft) Extremities: no pedal edema Neurologic/Psychiatric: alert, oriented x 3, + pertinent finding (no asterixis ) Laboratory Results Last 24 Hours Test 10/22/16 05:30 10/22/16 07:19 10/22/16 11:33 10/22/16 16:14 Sodium Level 147 mmol/L Potassium Level 3.8 mmol/L Chloride Level 118 mmol/L Carbon Dioxide Level 25 mmol/L Anion Gap 4.0 mmol/L Blood Urea Nitrogen 6 mg/dl Creatinine 0.43 mg/dl Est Creatinine Clear Calc Drug Dose 197.2 ml/min Estimated GFR () 137.5 Estimated GFR (Non- 118.6 BUN/Creatinine Ratio 15.1 Random Glucose 154 mg/dl Calcium Level 7.8 mg/dl Magnesium Level 1.5 mg/dl Ammonia 85.0 umol/L Bedside Glucose 149 mg/dl 246 mg/dl 158 mg/dl Test 10/22/16 20:24 Bedside Glucose 179 mg/dl Assessment and Plan 50yo female with cirrhosis 2nd to STEVE and multiple hospitalizations in the past for hepatic encephalopathy who presented with altered MS due to hepatic encephalopathy and possibly other metabolic causes (hypernatremia, hypoglycemia , etc). 1. encephalopathy - at admission was thought to be mainly hepatic encephalopathy along with other metabolic derangements in the setting of RUL pneumonia. Her encephalopathy resolved, then returned last week despite ongoing HE treatment (lactulose, rifaximin). There was suspicion of breakthrough seizures which led to increase in her seizure meds. Her ammonia levels then increased once again leading to addition of neomycin. Overall she is about at baseline today with normal Na, normal glucose, and stable ammonia level. No recent reported seizures. d/c neomycin. continue lactulose & rifaximin. 2. hepatic encephalopathy - resolved clinically. d/c neomycin, continue lactulose & rifaximin. again there was concern that the increase in trileptal led to a rise in her ammonia levels through hepatotoxicity. 3. hypernatremic dehydration - recurrent; 1/2 NS at 100cc/hr x 500cc; repeat BMP in am. 4. hypokalemia - resolved. 5. hypoglycemia - resolved; has not recurred. 6. seizure d/o - the patient had a recent EEG in early September c/w seizures. Her keppra dose was increased to 2000mg BID at that time due to concern of breakthrough seizures. Last week there was concern of additional seizures while hospitalized. Her trileptal was increased from BID dosing to TID. After doing such her mental status worsened and she became lethargic. At that time her ammonia levels yvette again despite being on lactulose & rifaximin. There was concern her trileptal had caused hepatic dysfunction leading to worsening ammonia. Thus, it was lowered back to BID dosing and vimpat BID was added by neurology. Overall she has been stable from seizure standpoint since these changes. Appreciate neurology consultation. CT head and EEG reviewed. 7. abnormal LFTs - 2nd to cirrhosis - at baseline. Repeat LFTs later in this stay were stable. 8. prolonged QTc interval - resolved. 9. RUL pneumonia - clinically resolved. 10. DVT proph - heparin TID. 11. anemia/thrombocytopenia - 2nd to cirrhosis - at baseline. Repeat CBC 10/20 stable. Will repeat again in am for stability. 12. FEN - see hypernatremia section above; BMP/mag in am; replace mag. 13. asthma - not in exacerbation. Duoneb prn. Symbicort BID. 14. hypothyroidism - recent TSH was acceptable. Cont synthroid. 15. GERD - zantac. 16. T2DM - control acceptable. 17. hypomagnesemia - replace 2 grams mag sulfate, repeat level am. PT, OT updated at bedside extensively dispo plan - SNF for rehab? Continued [facility] stay due to: ambulation difficulties, multiple IV medications needed, other (resolving hepatic encephalopathy, recent suspected seizures) Discharge [facility]
[2016-10-23] MEDS: LACOSAMIDE IV SCH (03:08)
[2016-10-23] MEDS: SODIUM CHLORIDE 0.9% IV SCH (03:08)
[2016-10-23 04:05] VITALS: BP 106/65; PULSE 69; TEMP 36.7; O2SAT 99
[2016-10-23 05:25] LABS: MEAN CELL VOLUME 105.3 fL (80-100); MEAN CORPUSCULAR HEMOGLOBIN 36.4 pg (25-34); MEAN CORPUSCULAR HGB CONC 34.6 g/dl (32-36); RED BLOOD COUNT 2.28 M/uL (4.2-5.4); WHITE BLOOD COUNT 2.68 K/uL (4.8-10.8)
[2016-10-23 05:32] LABS: MEAN PLATELET VOLUME 10.1 fL (7.4-10.4); PLATELET COUNT 76 K/uL (130-400)
[2016-10-23] MEDS: HEPARIN SOD 5000 UNIT/0.5 ML CARP SQ SCH ×3 (05:49→21:49)
[2016-10-23 05:52] LABS: BUN/CREATININE RATIO 8.6 (10-20); CALCIUM 7.5 mg/dl (8.5-10.1); CREATININE 0.6 mg/dl (0.60-1.20); MAGNESIUM 1.6 mg/dl (1.8-2.4); POTASSIUM 3.6 mmol/L (3.5-5.1)
[2016-10-23 06:12] LABS: BASO % 1.1 %; BASO ABS # 0.03 K/uL (0-0.2); COMPLETE YES; EOS % 4.1 %; LYMPH % 31.7 %; LYMPH ABS # 0.85 K/uL (1.2-3.4); MONO % 10.8 %; NEUT % 52.3 %; OVALOCYTES 1+
[2016-10-23 07:50] VITALS: BP 129/76; PULSE 82; TEMP 36.8; O2SAT 100
[2016-10-23] MEDS: BUDESONIDE/FORMOTEROL FUMARATE 160/4.5 60 PUFFS/INHALER INH SCH ×2 (08:15→21:00)
[2016-10-23] MEDS: PANTOprazole SOD 40 MG TAB PO SCH (08:20)
[2016-10-23] MEDS: TOPIRAMATE 50 MG TAB PO SCH ×2 (08:20→21:44)
[2016-10-23] MEDS: RANITIDINE HCL 150 MG TAB PO SCH ×2 (08:20→21:42)
[2016-10-23] MEDS: RIFAXIMIN TAB 550 MG TAB PO SCH ×2 (08:20→21:43)
[2016-10-23] MEDS: POTASSIUM CHLORIDE 20 MEQ TABCR PO SCH (08:20)
[2016-10-23] MEDS: OXCARBAZEPINE 300 MG TAB PO SCH ×2 (08:20→21:47)
[2016-10-23] MEDS: LACTULOSE SYRUP 20 GM/30 ML UDC PO SCH ×2 (08:20→21:41)
[2016-10-23] MEDS: INSULIN ASPART 100 UNITS/ML 3 ML PEN SC SCH ×4 (08:22→21:49)
[2016-10-23] MEDS: LEVETIRACETAM 1000 MG PO SCH ×2 (09:55→21:50)
[2016-10-23] MEDS: MAGNESIUM SULFATE 1GM / D5W 1 GM in PREMIXED IN D5W 100 ML IV SCH ×2 (09:55→11:57)
[2016-10-23 11:31] VITALS: BP 105/65; PULSE 81; TEMP 36.7; O2SAT 99
[2016-10-23] MEDS ORDERED: LACTULOSE SYRUP 20 GM/30 ML UDC PO ONE (15:15)
[2016-10-23 15:31] VITALS: BP 122/72; PULSE 79; TEMP 36.4; O2SAT 100
[2016-10-23 16:00] VITALS: O2SAT 100
[2016-10-23 16:28] LABS: HEMATOCRIT 24.9 % (37-47)
[2016-10-23] MEDS: LACOSAMIDE 50 MG TAB PO SCH (18:54)
[2016-10-23 20:00] VITALS: O2SAT 100
--- NOTE | 2016-10-23 20:27 | Progress Note ---
Subjective Date of Service: Oct 23, 2016. Subjective Pt evaluation today including: conversation w/ patient, physical exam, chart review, lab review, review of inpatient medication list Pain: denies cp, abd pain PO Intake: eating fine Voiding: no voiding problems patient desires to go home rather than SNF patient states she discussed it with her and they both agree it is ok to come home she worked with PT today she requests her lactulose be increased and also her vimpat (?) she denies ANY complaints today and feels good Problem List Medical Problems: (1) Acute bronchitis Status: Acute (2) Acute hepatic encephalopathy Status: Acute (3) Alkaline phosphatase elevation Status: Acute (4) Anemia Status: Acute (5) Back pain Status: Acute (6) Bradycardia Status: Acute (7) Breakthrough seizure Status: Acute (8) Burn Status: Acute (9) Change in mental status Status: Acute (10) Change in mental status Status: Acute (11) Chronic low back pain Status: Acute (12) Closed head injury Status: Acute (13) Dehydration Status: Acute (14) Dizziness Status: Acute (15) Facial laceration Status: Acute (16) Fall Status: Acute (17) Fall Status: Acute (18) Fatigue Status: Acute (19) Hemorrhoid Status: Acute (20) Hepatic encephalopathy Status: Acute (21) Hepatic encephalopathy Status: Acute (22) Hepatic encephalopathy Status: Acute (23) Hepatic encephalopathy Status: Acute (24) Hepatic encephalopathy Status: Acute (25) Hepatic encephalopathy Status: Acute (26) Hepatic encephalopathy Status: Acute (27) Hepatic encephalopathy Status: Acute (28) Hyperammonemia Status: Acute (29) Hyperammonemia Status: Acute (30) Hyperammonemia Status: Acute (31) Hyperammonemia Status: Acute (32) Hypocalcemia Status: Acute (33) Hypocalcemia Status: Acute (34) Hypoglycemia Status: Acute (35) Hypokalemia Status: Acute (36) Hypomagnesemia Status: Acute (37) Increased ammonia level Status: Acute (38) Left foot pain Status: Acute (39) Leukopenia Status: Acute (40) Low back pain Status: Acute (41) Pain in pelvis Status: Acute (42) Pancytopenia Status: Acute (43) Right ear pain Status: Acute (44) Right groin pain Status: Acute (45) Right hip pain Status: Acute (46) Right upper lobe pneumonia Status: Acute (47) RUQ abdominal pain Status: Acute (48) Thrombocytopenia Status: Acute (49) Weakness Status: Acute (50) Weakness Status: Acute (51) Weakness Status: Acute (52) Weakness Status: Acute Review of Systems Constitutional: No fever Respiratory: No cough, No shortness of breath, No dyspnea on exertion Cardiac: No chest pain, No orthopnea, No edema Abdomen: No pain, No nausea, No vomiting (no recurrent emesis overnight) Objective Vital Signs Date Time Temp Pulse Resp B/P (MAP) Pulse Ox O2 Delivery O2 Flow Rate FiO2 10/23/16 16:00 100 Room Air 10/23/16 15:31 36.4 79 16 122/72 (89) 100 Room Air 10/23/16 12:00 Room Air 10/23/16 11:31 36.7 81 16 105/65 (78) 99 Room Air 10/23/16 07:50 36.8 82 16 129/76 (93) 100 Room Air 10/23/16 07:45 Room Air 10/23/16 04:05 36.7 69 18 106/65 (79) 99 Room Air 10/23/16 04:00 Room Air 10/23/16 00:00 Room Air 10/22/16 23:07 36.8 85 18 119/72 (88) 95 Room Air Physical Exam General Appearance: no apparent distress, + pertinent finding (best she has looked in over a week!; looks older than stated age, however) ENT: pharynx normal Neck: no JVD Respiratory/Chest: lungs clear, no respiratory distress, no accessory muscle use Cardiovascular: regular rate, rhythm, no gallop, + systolic murmur (1/6 GIOVANNI LSB ) Abdomen: normal bowel sounds, non tender, soft, no organomegaly Extremities: no pedal edema Neurologic/Psychiatric: alert, oriented x 3, + pertinent finding (no asterixis ) Laboratory Results Last 24 Hours Test 10/22/16 20:24 10/23/16 05:06 10/23/16 07:46 10/23/16 11:31 Bedside Glucose 179 mg/dl 163 mg/dl 237 mg/dl White Blood Count 2.68 K/uL Red Blood Count 2.28 M/uL Hemoglobin 8.3 g/dL Hematocrit 24.0 % Mean Corpuscular Volume 105.3 fL Mean Corpuscular Hemoglobin 36.4 pg Mean Corpuscular Hemoglobin Concent 34.6 g/dl Platelet Count 76 K/uL Mean Platelet Volume 10.1 fL Neutrophils (%) (Auto) 52.3 % Lymphocytes (%) (Auto) 31.7 % Monocytes (%) (Auto) 10.8 % Eosinophils (%) (Auto) 4.1 % Basophils (%) (Auto) 1.1 % Neutrophils # (Auto) 1.40 K/uL Lymphocytes # (Auto) 0.85 K/uL Monocytes # (Auto) 0.29 K/uL Eosinophils # (Auto) 0.11 K/uL Basophils # (Auto) 0.03 K/uL RDW Standard Deviation 57.8 fL RDW Coefficient of Variation 15.2 % Immature Granulocyte % (Auto) 0.0 % Immature Granulocyte # (Auto) 0.00 K/uL Ovalocytes 1+ Sodium Level 142 mmol/L Potassium Level 3.6 mmol/L Chloride Level 113 mmol/L Carbon Dioxide Level 24 mmol/L Anion Gap 5.0 mmol/L Blood Urea Nitrogen 5 mg/dl Creatinine 0.60 mg/dl Est Creatinine Clear Calc Drug Dose 141.3 ml/min Estimated GFR () 123.2 Estimated GFR (Non- 106.3 BUN/Creatinine Ratio 8.6 Random Glucose 165 mg/dl Calcium Level 7.5 mg/dl Magnesium Level 1.6 mg/dl Ammonia 110.0 umol/L Test 10/23/16 16:18 10/23/16 16:37 Hemoglobin 8.8 g/dL Hematocrit 24.9 % Magnesium Level 1.9 mg/dl Bedside Glucose 174 mg/dl Assessment and Plan 50yo female with cirrhosis 2nd to STEVE and multiple hospitalizations in the past for hepatic encephalopathy who presented with altered MS due to hepatic encephalopathy and possibly other metabolic causes (hypernatremia, hypoglycemia , etc). 1. metabolic encephalopathy - resolved; at neuropsychiatric baseline. 2. hepatic encephalopathy - resolved clinically despite the increase in her ammonia level overnight. She also does NOT have any lethargy, asterixis, etc. neomycin has been d/c. continue lactulose - increased to TID dosing for 2-3 BMs/day. cont rifaximin BID. again there was concern this admission that the increase in trileptal led to a rise in her ammonia levels through hepatotoxicity. 3. hypernatremic dehydration - resolved; d/c all IV fluids. 4. hypokalemia - resolved. 5. hypoglycemia - resolved; has not recurred. 6. seizure d/o - the patient had a recent EEG in early September c/w seizures. Her keppra dose was increased to 2000mg BID at that time due to concern of breakthrough seizures. Last week there was concern of additional seizures while hospitalized. Her trileptal was increased from BID dosing to TID. After doing such her mental status worsened and she became lethargic. At that time her ammonia levels yvette again despite being on lactulose & rifaximin. There was concern her trileptal had caused hepatic dysfunction leading to worsening ammonia. Thus, it was lowered back to BID dosing and vimpat BID was added by neurology. Overall she has been stable from seizure standpoint since these changes. Appreciate neurology consultation. 7. abnormal LFTs - 2nd to cirrhosis - at baseline. Repeat LFTs later in this stay were stable. 8. prolonged QTc interval - resolved. 9. RUL pneumonia - clinically resolved. She is off all antibiotic therapy. 10. DVT proph - heparin TID. 11. anemia/thrombocytopenia - H/H dropped this AM in comparison to H/H 3 days ago. I repeated her H/H this afternoon and they were stable. Will repeat CBC in am for stability. No evidence of any occult GI bleeding. 12. FEN - replace mag again, diet as tolerated, other lytes stable, fluids off. 13. asthma - not in exacerbation. Duoneb prn. Symbicort BID. 14. hypothyroidism - recent TSH was acceptable. Cont synthroid. 15. GERD - zantac. 16. T2DM - control acceptable. 17. hypomagnesemia - replaced this AM and repeat mag later in the day was NORMAL. PT, OT notes reviewed - patient's mobility and walking much improved today she is requesting home rather than SNF if comfortable with d/c home that would be acceptable could potentially d/c home tomorrow if doing well and stable Continued [facility] stay due to: ambulation difficulties Discharge planning: retirement facility (vs home with HH)
[2016-10-23] MEDS: INSULIN GLARGINE SOLOSTAR 100 UNITS/ML 3 ML PEN SC SCH (21:49)
[2016-10-24] VITALS (10 sets, daily range): BP systolic 95–117; BP diastolic 47–78; PULSE 73–99; TEMP 36.6–37; O2SAT 95–100
[2016-10-24 05:57] LABS: HEMATOCRIT 24.7 % (37-47); MEAN CELL VOLUME 104.7 fL (80-100); MEAN CORPUSCULAR HGB CONC 34.4 g/dl (32-36); RED BLOOD COUNT 2.36 M/uL (4.2-5.4); WHITE BLOOD COUNT 2.83 K/uL (4.8-10.8)
[2016-10-24 05:58] LABS: PLATELET COUNT 83 K/uL (130-400)
[2016-10-24] MEDS: HEPARIN SOD 5000 UNIT/0.5 ML CARP SQ SCH ×3 (06:20→21:35)
[2016-10-24] MEDS: TOPIRAMATE 50 MG TAB PO SCH ×2 (06:21→22:25)
[2016-10-24] MEDS: BUDESONIDE/FORMOTEROL FUMARATE 160/4.5 60 PUFFS/INHALER INH SCH ×2 (08:06→21:00)
[2016-10-24] MEDS ORDERED: KETOROLAC TROMETHAMINE 30 MG/ML VIAL IV STA (08:06)
[2016-10-24] MEDS: LACTULOSE SYRUP 20 GM/30 ML UDC PO SCH ×3 (08:09→21:15)
[2016-10-24] MEDS: LEVETIRACETAM 1000 MG PO SCH ×2 (08:09→21:16)
[2016-10-24] MEDS: OXCARBAZEPINE 300 MG TAB PO SCH ×2 (08:10→21:19)
[2016-10-24] MEDS: RANITIDINE HCL 150 MG TAB PO SCH ×2 (08:10→22:24)
[2016-10-24] MEDS: RIFAXIMIN TAB 550 MG TAB PO SCH ×2 (08:10→22:24)
[2016-10-24] MEDS: POTASSIUM CHLORIDE 20 MEQ TABCR PO SCH (08:10)
[2016-10-24] MEDS: LACOSAMIDE 50 MG TAB PO SCH ×2 (08:10→22:24)
[2016-10-24] MEDS: PANTOprazole SOD 40 MG TAB PO SCH (08:10)
[2016-10-24] MEDS: INSULIN ASPART 100 UNITS/ML 3 ML PEN SC SCH ×4 (08:12→21:21)
[2016-10-24] MEDS ORDERED: LACT10SO17 PO (12:57)
[2016-10-24] MEDS ORDERED: LACO50TA PO (12:57)
[2016-10-24] MEDS ORDERED: INSU1.2I SQ (12:57)
[2016-10-24] MEDS ORDERED: KETO10TA PO (12:57)
--- NOTE | 2016-10-24 13:11 | Discharge Instructions ---
Discharge Instructions Date of Service Oct 24, 2016. Admission Reason for Admission: Hyperammonemia, Pneumonia Discharge Discharge Diagnosis / Problem: encephalopathy Discharge Goals Goal(s): Diagnostic testing, Therapeutic intervention Activity Recommendations Activity Limitations: resume your previous activity . Current Hospital Diet Patient's current hospital diet: Diabetes Type 2 Diet, Low Fiber Diet, Low Sodium Diet (2gm Na) Discharge Diet Recommended Diet: Regular Diet Pending Studies Studies pending at discharge: no Laboratory Results Hemoglobin A1c Test 09/25/16 08:18 Range/Units Estimated Average Glucose 71 mg/dl Hemoglobin A1c 4.1 L 4.5-5.6 % Lipid Panel Test 09/25/16 08:18 Range/Units Triglycerides Level 46 0-150 mg/dl Cholesterol Level 126 0-200 mg/dl HDL Cholesterol 72 mg/dl Cholesterol/HDL Ratio 1.8 LDL Cholesterol, Calculated 45 mg/dl Medical Emergencies . Who to Call and When: Medical Emergencies: If at any time you feel your situation is an emergency, please call 911 immediately. . Non-Emergent Contact Non-Emergency issues call your: Primary Care Provider, Neurologist Call Non-Emergent contact if: temperature is above 101, your pain is unusual for you . . "Provider Documentation" section prepared by Erick Rice. . VTE Core Measure Inpt VTE Proph given/why not?: Unfractionated heparin S[place] Drug Monitoring Program Search Results: patient reviewed within database
--- NOTE | 2016-10-24 14:57 | Progress Note ---
Subjective Date of Service: Oct 24, 2016. Subjective this pt was set for discharge, when her left her unattended, without alerting the nursing staff, the pt suffered a ground level fall with facial contusion to left cheek, forehead and epistaxis. the pt also complains of pain to her right hand. she has a left scalp abrasion but not laceration, she is arousable but has her slow speech with only complaints of pain at the affected sites, her returned and is aware of cancelled discharge Problem List Medical Problems: (1) Acute bronchitis Status: Acute (2) Acute hepatic encephalopathy Status: Acute (3) Alkaline phosphatase elevation Status: Acute (4) Anemia Status: Acute (5) Back pain Status: Acute (6) Bradycardia Status: Acute (7) Breakthrough seizure Status: Acute (8) Burn Status: Acute (9) Change in mental status Status: Acute (10) Change in mental status Status: Acute (11) Chronic low back pain Status: Acute (12) Closed head injury Status: Acute (13) Dehydration Status: Acute (14) Dizziness Status: Acute (15) Facial laceration Status: Acute (16) Fall Status: Acute (17) Fall Status: Acute (18) Fatigue Status: Acute (19) Hemorrhoid Status: Acute (20) Hepatic encephalopathy Status: Acute (21) Hepatic encephalopathy Status: Acute (22) Hepatic encephalopathy Status: Acute (23) Hepatic encephalopathy Status: Acute (24) Hepatic encephalopathy Status: Acute (25) Hepatic encephalopathy Status: Acute (26) Hepatic encephalopathy Status: Acute (27) Hepatic encephalopathy Status: Acute (28) Hyperammonemia Status: Acute (29) Hyperammonemia Status: Acute (30) Hyperammonemia Status: Acute (31) Hyperammonemia Status: Acute (32) Hypocalcemia Status: Acute (33) Hypocalcemia Status: Acute (34) Hypoglycemia Status: Acute (35) Hypokalemia Status: Acute (36) Hypomagnesemia Status: Acute (37) Increased ammonia level Status: Acute (38) Left foot pain Status: Acute (39) Leukopenia Status: Acute (40) Low back pain Status: Acute (41) Pain in pelvis Status: Acute (42) Pancytopenia Status: Acute (43) Right ear pain Status: Acute (44) Right groin pain Status: Acute (45) Right hip pain Status: Acute (46) Right upper lobe pneumonia Status: Acute (47) RUQ abdominal pain Status: Acute (48) Thrombocytopenia Status: Acute (49) Weakness Status: Acute (50) Weakness Status: Acute (51) Weakness Status: Acute (52) Weakness Status: Acute Review of Systems Constitutional: + weakness, + fatigue, No fever, No chills Respiratory: No cough, No shortness of breath, No dyspnea on exertion Abdomen: No pain, No nausea, No vomiting, No diarrhea Female : No dysuria, No urinary frequency Psychiatric: + depression symptoms, + anhedonism, + anxiety Objective Vital Signs Date Time Temp Pulse Resp B/P (MAP) Pulse Ox O2 Delivery O2 Flow Rate FiO2 10/24/16 14:08 36.6 76 16 117/74 (88) 97 Room Air 10/24/16 13:32 36.8 75 16 95 Room Air 10/24/16 12:00 Room Air 10/24/16 11:42 36.8 75 16 107/62 (77) 95 Room Air 10/24/16 07:47 36.6 73 16 100/56 (71) 98 Room Air 10/24/16 07:45 Room Air 10/24/16 04:00 Room Air 10/24/16 03:39 36.7 77 20 95/47 (63) 96 Room Air 10/24/16 00:03 36.8 75 20 110/68 (82) 96 Room Air 10/24/16 00:00 Room Air 10/23/16 20:00 100 Room Air 10/23/16 16:00 100 Room Air 10/23/16 15:31 36.4 79 16 122/72 (89) 100 Room Air Physical Exam General Appearance: WD/WN, + moderate distress Eyes: + pertinent finding (left cheek contusion, forehead contusion, abrasion to left latter day area) Cardiovascular: regular rate, rhythm, no murmur Abdomen: normal bowel sounds, non tender, soft Neurologic/Psychiatric: alert, + depressed affect, + disoriented Laboratory Results Last 24 Hours Test 10/23/16 16:18 10/23/16 16:37 10/23/16 20:46 10/24/16 05:46 Hemoglobin 8.8 g/dL 8.5 g/dL Hematocrit 24.9 % 24.7 % Magnesium Level 1.9 mg/dl Bedside Glucose 174 mg/dl 226 mg/dl White Blood Count 2.83 K/uL Red Blood Count 2.36 M/uL Mean Corpuscular Volume 104.7 fL Mean Corpuscular Hemoglobin 36.0 pg Mean Corpuscular Hemoglobin Concent 34.4 g/dl RDW Standard Deviation 56.0 fL RDW Coefficient of Variation 15.0 % Platelet Count 83 K/uL Mean Platelet Volume 10.0 fL Ammonia 73.0 umol/L Test 10/24/16 07:43 10/24/16 08:11 10/24/16 11:40 Bedside Glucose 118 mg/dl 205 mg/dl Vitamin B12 Level 1271 pg/mL Assessment and Plan 50yo female with 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 Had worsened encephalopathy likely associated with medications ON the afternoon of 10/24, the pt was discharged to home, her left her alone and she had an unwitnessed fall in her room with facial contusions and right hand pain, no defined laceration, will CT facial bones and hand, have q 4 hour neuro checks and the pt will need subacute rehab for the future, was here and updated right comminuted and displaced nasal bone fracture, will add po clinda for mucosal breach and consult ENT hepatic encephalopathy seemingly to have worsened after increase in trileptal, now dose reduced and vimpat started for possible breakthrough seizures, will follow up with outpt neurology seizure d/o - the patient had a recent EEG in early September c/w seizures. . Dr. Frye did see and tried ativan to see if status epilepticus, no change so feel was morehepatic encephalopathy Keppra Vimpat and Trileptal, the Trileptal being at her prehospital dosing. RUL pneumonia - clinically stable. on aztreonam to cover for possible gram neg etiology. MRSA swab neg; since not taking po will revert back to iv given RUL did have ID see and pending Quanterferon Gold, negative results diabetic care will resume basal bolus insulin recent chest pain - had such for 3 days prior to admission. Suspect musculoskeletal, troponins negative. Will not use opiate control given recent events of mental status changes DVT proph - heparin TID. Continued [facility] stay due to: ambulation difficulties [facility]charge planning: [facility] facility (vs home with HH)
--- NOTE | 2016-10-24 15:22 | DIAGNOSTIC IMAGING REPORT ---
FACIAL BONES-MXILLOFAC WITHOUT CLINICAL HISTORY: 50 years-old Female presenting with fall nasal injury and left zygoma. TECHNIQUE: Multidetector CT of the face was performed without the use of intravenous contrast. IV contrast: None. A dose lowering technique was used consistent with the principles of ALARA (as low as reasonably achievable). COMPARISON: 08/15/2015. CT DOSE (mGy.cm): The estimated cumulative dose is 533.14 mGycm. FINDINGS: Partial opacification of the left maxillary sinus and anterior nasal cavity. Comminuted and displaced nasal bone fracture with rightward displacement. No other acute osseous injury is identified. Left periorbital soft tissue swelling and infiltration consistent with contusion. Underlying left zygoma and orbit intact. Temporomandibular joints congruent. No mandibular fracture. The patient is edentulous. Upper cervical spine normal. Remaining soft tissues of the face unremarkable. Limited intracranial evaluation within normal limits. IMPRESSION: 1. Comminuted and displaced right nasal bone fracture with rightward displacement. No other acute osseous injury. 2. Partial opacification of the left maxillary sinus and anterior nasal cavity could represent hemorrhage. Electronically signed by: Davis Gallegos M.D. 10/24/2016 3:21 PM Dictated Date/Time: 10/24/2016 3:15 PM
--- NOTE | 2016-10-24 15:39 | DIAGNOSTIC IMAGING REPORT ---
RIGHT HAND MIN 3 VIEWSROUTINE CLINICAL HISTORY: 50 years-old Female presenting with RIGHT HAND PAIN Right. TECHNIQUE: Frontal, oblique, and lateral views of the right hand were obtained. COMPARISON: 09/19/2016. FINDINGS: Diffuse soft tissue swelling of the hand remains present. Osteopenia. Radiocarpal and intercarpal articulations intact. Erosions of the head of the proximal phalanx of the first finger noted as well as several other phalanges marked on the image. No central erosions are evident. Erosions at the scaphotrapezial articulation. This is similar in appearance to prior exam. No acute fracture or malalignment. IMPRESSION: 1. Multiple erosions of the periarticular heads of several phalanges at both the proximal and distal interphalangeal joints. This distribution could indicate psoriatic arthritis or reactive arthritis. 2. Persistent diffuse soft tissue swelling. 3. Osteopenia. Electronically signed by: Davis Gallegos M.D. 10/24/2016 3:38 PM Dictated Date/Time: 10/24/2016 3:31 PM
[2016-10-24] MEDS: CLINDAMYCIN HCL 150 MG CAP PO SCH (18:23)
[2016-10-24] MEDS: INSULIN GLARGINE SOLOSTAR 100 UNITS/ML 3 ML PEN SC SCH (21:21)
[2016-10-24] MEDS: KETOROLAC TROMETHAMINE 10 MG TAB PO PRN (22:24)
[2016-10-25] VITALS (9 sets, daily range): BP systolic 105–138; BP diastolic 65–84; PULSE 90–107; TEMP 36.6–37.6; O2SAT 96–100
[2016-10-25] MEDS: CLINDAMYCIN HCL 150 MG CAP PO SCH ×4 (00:07→18:26)
[2016-10-25] MEDS: ONDANSETRON INJ 2 MG/ML 2 ML VIAL IV PRN (04:32)
[2016-10-25 05:29] LABS: HEMATOCRIT 25.1 % (37-47); MEAN CELL VOLUME 105.5 fL (80-100); MEAN CORPUSCULAR HEMOGLOBIN 38.7 pg (25-34); MEAN CORPUSCULAR HGB CONC 36.7 g/dl (32-36); RED BLOOD COUNT 2.38 M/uL (4.2-5.4)
[2016-10-25 05:33] LABS: MEAN PLATELET VOLUME 9.8 fL (7.4-10.4); PLATELET COUNT 96 K/uL (130-400)
[2016-10-25 06:20] LABS: ALB/GLOB RATIO 1.1 (0.9-2); BUN/CREATININE RATIO 18.6 (10-20); CALCIUM 7.7 mg/dl (8.5-10.1); CREATININE 0.63 mg/dl (0.60-1.20); POTASSIUM 4.4 mmol/L (3.5-5.1)
[2016-10-25] MEDS: HEPARIN SOD 5000 UNIT/0.5 ML CARP SQ SCH ×3 (06:37→21:50)
[2016-10-25] MEDS: KETOROLAC TROMETHAMINE 10 MG TAB PO PRN ×2 (06:44→17:40)
--- NOTE | 2016-10-25 07:09 | ENT CONSULTATION ---
DATE OF CONSULTATION: 10/24/2016 I have been asked by Dr. Erick Rice to evaluate this patient with comminuted right nasal bone fracture. 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 A CT scan of the maxillofacial area was performed and to my interpretation reveals bilateral comminuted displaced nasal bone fractures with depressed left and elevated right nasal bone fractures with a shift of her nasal pyramid to the right but no significant septal deviation or evidence of septal hematoma on the scan. There is significant mucosal edema and perhaps blood within her left maxillary and ethmoid sinus. Subjectively, patient states that she has never had a known nasal fracture and denies any cosmetic nasal deformity to her nose. She has significant left eye swelling but denies any blurry vision or double vision when her eyes open. She is not sure how she fell and is somewhat amnestic for the event. She was therefore not discharged and the admitting team is working on eventual penitentiary placement. The patient is complaining of some bilateral nasal obstruction. ALLERGIES: PENICILLIN, AZITHROMYCIN, BACLOFEN, BUTALBITAL, CLARITHROMYCIN, DICYCLOMINE, TETRACYCLINE, SULINDAC, ADHESIVES, FLAGYL, TRAMADOL, REGLAN, FUROSEMIDE, BLUEBERRIES, AND ORANGE PULP. PAST MEDICAL HISTORY: As above. PAST SURGICAL HISTORY: 1. Status post septoplasty. 2. Status post tonsillectomy. 3. Status post appendectomy. 4. Status post cholecystectomy. 5. Status post hysterectomy. 6. Status post spinal nerve stimulator. 7. Status post right central line placement. 8. Status post lumbar kyphoplasty. FAMILY HISTORY: Noncontributory. SOCIAL HISTORY: The patient is and lives with her . She is disabled. She denies tobacco, alcohol or illicit drug use. REVIEW OF SYSTEMS: The patient is complaining of facial pain, left shoulder pain, and some nasal airway obstruction. She denies any current epistaxis, but had epistaxis at the time of the fall. She has lightheadedness, headache, and dizziness. PHYSICAL EXAMINATION: GENERAL: This is a morbidly obese female in no acute distress. HEENT: Severe left-sided upper eyelid and lower eyelid edema. Upon opening her eye; her pupils are equal, round and reactive to light and accommodation. Extraocular movements are intact. Externally, the nasal examination shows that there is an abrasion over her left nasal sidewall. Her nasal dorsum is grossly deviated to the right. Interestingly, she does not have pain upon palpation of the right nasal bone. Intranasal examination reveals mucosal lacerations but no septal hematoma. The septum appears relatively midline. There is some dried blood within the superior nasal cavities bilaterally. Oral cavity and oropharyngeal examination reveals that she is status post tonsillectomy. There is no bloody postnasal drip. NECK: Reveals no neck lymphadenopathy, thyroid nodularity, or masses. She has an obese neck. She is awake and alert and oriented x3. Cranial nerves II-XII are grossly intact. Imaging was reviewed and is described as above. There is no evidence of a left orbital fracture or maxillary fracture despite her significant left periorbital ecchymosis and edema. IMPRESSION AND RECOMMENDATIONS: A 50-year-old female with multiple medical comorbidities with comminuted nasal bone fractures with cosmetic deformity with rightward deviation of the nasal dorsum. She does not have septal hematoma. I have recommended no surgery given her multiple medical comorbidities, but she is bothered by the appearance of her nose and would opt for a closed reduction if deemed appropriate. I discussed this case with Dr. Rice who is going to talk about her anesthetic risk with anesthesia tomorrow. I also discussed this case with her . I will check on her periodically while she is in the hospital. If she is medically cleared for closed reduction, I will try to do that early next week so that she may ultimately be transferred to a penitentiary in an expeditious fashion. If you have any questions regarding this patient's consult, please do not hesitate to contact me. CYNDI
[2016-10-25] MEDS: LACTULOSE SYRUP 20 GM/30 ML UDC PO SCH ×3 (08:58→21:40)
[2016-10-25] MEDS: BUDESONIDE/FORMOTEROL FUMARATE 160/4.5 60 PUFFS/INHALER INH SCH ×2 (09:00→21:40)
[2016-10-25] MEDS: LEVETIRACETAM 1000 MG PO SCH ×2 (09:02→21:00)
[2016-10-25] MEDS: OXCARBAZEPINE 300 MG TAB PO SCH ×2 (09:04→21:00)
[2016-10-25] MEDS: LACOSAMIDE 50 MG TAB PO SCH ×2 (09:05→21:43)
[2016-10-25] MEDS: RANITIDINE HCL 150 MG TAB PO SCH ×2 (09:06→21:43)
[2016-10-25] MEDS: RIFAXIMIN TAB 550 MG TAB PO SCH ×2 (09:06→21:43)
[2016-10-25] MEDS: TOPIRAMATE 50 MG TAB PO SCH ×2 (09:08→21:42)
[2016-10-25] MEDS: INSULIN ASPART 100 UNITS/ML 3 ML PEN SC SCH ×4 (09:15→21:52)
[2016-10-25] MEDS: POTASSIUM CHLORIDE 20 MEQ TABCR PO SCH (09:24)
[2016-10-25] MEDS: PANTOprazole SOD 40 MG TAB PO SCH (09:25)
--- NOTE | 2016-10-25 15:14 | ENT PROGRESS NOTE ---
DATE: 10/25/2016 DATE: 10/25/2016 SUBJECTIVE: I went to check the patient today to reexamine her nose and left eye after placing ice on it and having her head of bed elevated. She has not been compliant with the ice on the nose per Dr. Erick Rice. However, the nasal swelling and eye swelling has decreased somewhat. She has a significant right nasal dorsal deviation with cosmetic nasal deformity. She has no epistaxis and has dried blood within superior nasal cavities bilaterally. I have recommended closed reduction of the nasal fracture and have set her up for the operating room on Friday at 10:00 a.m. Preoperative orders were ordered including n.p.o. after midnight as well as holding her subcutaneous heparin at 10:00 p.m. on 10/27/2016. The risks, benefits, and alternatives to surgery were discussed with the patient. We will obtain informed written informed consent on Friday morning. The patient desires surgical intervention. She understands the risks of possible suboptimal cosmetic result as well as epistaxis. If you have any questions regarding this follow-up consultation please do not hesitate to contact me.
--- NOTE | 2016-10-25 16:20 | Progress Note ---
Subjective Date of Service: Oct 25, 2016. Subjective this pt has marked facial swelling, left periorbital swelling and nasal defromity, states has pain in her left shoulder, initially did not complain of this, no complaints of facial pain Problem List Medical Problems: (1) Acute bronchitis Status: Acute (2) Acute hepatic encephalopathy Status: Acute (3) Alkaline phosphatase elevation Status: Acute (4) Anemia Status: Acute (5) Back pain Status: Acute (6) Bradycardia Status: Acute (7) Breakthrough seizure Status: Acute (8) Burn Status: Acute (9) Change in mental status Status: Acute (10) Change in mental status Status: Acute (11) Chronic low back pain Status: Acute (12) Closed head injury Status: Acute (13) Dehydration Status: Acute (14) Dizziness Status: Acute (15) Facial laceration Status: Acute (16) Fall Status: Acute (17) Fall Status: Acute (18) Fatigue Status: Acute (19) Hemorrhoid Status: Acute (20) Hepatic encephalopathy Status: Acute (21) Hepatic encephalopathy Status: Acute (22) Hepatic encephalopathy Status: Acute (23) Hepatic encephalopathy Status: Acute (24) Hepatic encephalopathy Status: Acute (25) Hepatic encephalopathy Status: Acute (26) Hepatic encephalopathy Status: Acute (27) Hepatic encephalopathy Status: Acute (28) Hyperammonemia Status: Acute (29) Hyperammonemia Status: Acute (30) Hyperammonemia Status: Acute (31) Hyperammonemia Status: Acute (32) Hypocalcemia Status: Acute (33) Hypocalcemia Status: Acute (34) Hypoglycemia Status: Acute (35) Hypokalemia Status: Acute (36) Hypomagnesemia Status: Acute (37) Increased ammonia level Status: Acute (38) Left foot pain Status: Acute (39) Leukopenia Status: Acute (40) Low back pain Status: Acute (41) Pain in pelvis Status: Acute (42) Pancytopenia Status: Acute (43) Right ear pain Status: Acute (44) Right groin pain Status: Acute (45) Right hip pain Status: Acute (46) Right upper lobe pneumonia Status: Acute (47) RUQ abdominal pain Status: Acute (48) Thrombocytopenia Status: Acute (49) Weakness Status: Acute (50) Weakness Status: Acute (51) Weakness Status: Acute (52) Weakness Status: Acute Review of Systems Constitutional: No fever, No chills Eyes: + worsening of vision, + eye pain ENT: No hearing loss, No unusual epistaxis Respiratory: No cough, No sputum, No wheezing, No shortness of breath Cardiac: No chest pain, No orthopnea, No PND, No edema Abdomen: No pain, No nausea Musculoskeletal: + joint pain, + muscle pain, + swelling Psychiatric: + depression symptoms, + anhedonism Objective Vital Signs Date Time Temp Pulse Resp B/P (MAP) Pulse Ox O2 Delivery O2 Flow Rate FiO2 10/25/16 15:55 36.6 10/25/16 15:09 37.6 95 16 138/84 (102) 98 Room Air 10/25/16 12:00 Room Air 10/25/16 11:39 36.9 92 16 105/65 (78) 100 Room Air 10/25/16 08:00 Room Air 10/25/16 07:28 37.0 95 16 113/72 (86) 100 Room Air 10/25/16 04:00 36.9 103 20 137/80 (99) 97 Room Air 10/25/16 04:00 Room Air 10/25/16 04:00 36.9 103 20 137/80 (99) 97 Room Air 10/25/16 00:08 37.4 107 18 130/69 (89) 96 Room Air 10/25/16 00:00 Room Air 10/24/16 20:00 100 Room Air 10/24/16 19:33 37.0 99 18 111/73 (86) 100 Room Air Physical Exam General Appearance: WD/WN, + moderate distress Eyes: + pertinent finding (left eye periorbial swelling without ability to open eye) ENT: TMs normal, pharynx normal Respiratory/Chest: chest non-tender, lungs clear, normal breath sounds Cardiovascular: regular rate, rhythm, no murmur Abdomen: normal bowel sounds, non tender, soft Extremities: + pertinent finding (tenderness to movement of left shoulder) Neurologic/Psychiatric: alert, oriented x 3 Laboratory Results Last 24 Hours Test 10/24/16 16:43 10/24/16 20:30 10/25/16 05:21 10/25/16 07:42 Bedside Glucose 168 mg/dl 210 mg/dl 172 mg/dl White Blood Count 3.70 K/uL Red Blood Count 2.38 M/uL Hemoglobin 9.2 g/dL Hematocrit 25.1 % Mean Corpuscular Volume 105.5 fL Mean Corpuscular Hemoglobin 38.7 pg Mean Corpuscular Hemoglobin Concent 36.7 g/dl RDW Standard Deviation 58.2 fL RDW Coefficient of Variation 15.6 % Platelet Count 96 K/uL Mean Platelet Volume 9.8 fL Sodium Level 141 mmol/L Potassium Level 4.4 mmol/L Chloride Level 112 mmol/L Carbon Dioxide Level 22 mmol/L Anion Gap 7.0 mmol/L Blood Urea Nitrogen 12 mg/dl Creatinine 0.63 mg/dl Est Creatinine Clear Calc Drug Dose 142.7 ml/min Estimated GFR () 121.2 Estimated GFR (Non- 104.6 BUN/Creatinine Ratio 18.6 Random Glucose 170 mg/dl Calcium Level 7.7 mg/dl Total Bilirubin 1.8 mg/dl Aspartate Amino Transf (AST/SGOT) 55 U/L Alanine Aminotransferase (ALT/SGPT) 47 U/L Alkaline Phosphatase 131 U/L Total Protein 5.1 gm/dl Albumin 2.7 gm/dl Globulin 2.4 gm/dl Albumin/Globulin Ratio 1.1 Test 10/25/16 11:31 Bedside Glucose 255 mg/dl Assessment and Plan 50yo female with 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 Had worsened encephalopathy likely associated with medications ON the afternoon of 10/24, the pt was discharged to home, her left her alone and she had an unwitnessed fall in her room with facial contusions and right hand pain, no defined laceration, CT facial bones and hand, right comminuted and displaced nasal bone fracture, will add po clinda for mucosal breach and ENT will reduce fracture on 10/28, no hand fracture pending left shoulder x ray hepatic encephalopathy now stable previously seeming to have worsened after increase in trileptal, now dose reduced and vimpat started for possible breakthrough seizures, will follow up with outpt neurology seizure d/o now stable- the patient had a recent EEG in early September c/w seizures. . Dr. Frye did see and tried ativan to see if status epilepticus, no change so feel was morehepatic encephalopathy Keppra Vimpat and Trileptal, the Trileptal being at her prehospital dosing. RUL pneumonia - clinically stable. on aztreonam to cover for possible gram neg etiology. MRSA swab neg; completed treatment, also now on clinda for nasal fracture given RUL did have ID see and pending Quanterferon Gold, negative results diabetic care will resume basal bolus insulin in acceptable range recent chest pain - had such for 3 days prior to admission. Suspect musculoskeletal, troponins negative. Will not use opiate control given recent events of mental status changes DVT proph - heparin TID expect placement once nasal fracture repaired. Continued [facility] stay due to: ambulation difficulties Discharge planning: nursing home facility (vs home with HH)
--- NOTE | 2016-10-25 19:06 | DIAGNOSTIC IMAGING REPORT ---
LEFT SHOULDER MIN 2 VIEWS ROUTINE CLINICAL HISTORY: fall trauma COMPARISON: None. DISCUSSION: Moderately angled and displaced fracture proximal left humeral shaft. No evidence for dislocation. The acromioclavicular joint is intact. There is no evidence for soft tissue swelling. IMPRESSION: Moderately displaced/angled fracture left proximal humeral shaft. No evidence of dislocation. The above report was generated using voice recognition software. It may contain grammatical, syntax or spelling errors. Electronically signed by: Kenroy Yates M.D. 10/25/2016 7:05 PM Dictated Date/Time: 10/25/2016 7:04 PM
[2016-10-25] MEDS: INSULIN GLARGINE SOLOSTAR 100 UNITS/ML 3 ML PEN SC SCH (21:53)
[2016-10-26] MEDS: CLINDAMYCIN HCL 150 MG CAP PO SCH ×5 (01:25→23:28)
[2016-10-26] MEDS: OXYCODONE HCL IR 5 MG TAB (IMMEDIATE RELEASE) PO PRN ×5 (05:14→20:35)
[2016-10-26] MEDS: HEPARIN SOD 5000 UNIT/0.5 ML CARP SQ SCH ×3 (05:17→20:34)
[2016-10-26] MEDS: KETOROLAC TROMETHAMINE 10 MG TAB PO PRN ×2 (05:28→16:03)
[2016-10-26 07:23] VITALS: BP 99/49; PULSE 80; TEMP 36.7; O2SAT 99
[2016-10-26] MEDS: BUDESONIDE/FORMOTEROL FUMARATE 160/4.5 60 PUFFS/INHALER INH SCH ×2 (09:00→20:34)
[2016-10-26] MEDS: PANTOprazole SOD 40 MG TAB PO SCH (09:14)
[2016-10-26] MEDS: LEVETIRACETAM 1000 MG PO SCH ×2 (09:14→20:37)
[2016-10-26] MEDS: RANITIDINE HCL 150 MG TAB PO SCH ×2 (09:15→20:39)
[2016-10-26] MEDS: TOPIRAMATE 50 MG TAB PO SCH ×2 (09:15→20:37)
[2016-10-26] MEDS: OXCARBAZEPINE 300 MG TAB PO SCH ×2 (09:16→20:38)
[2016-10-26] MEDS: RIFAXIMIN TAB 550 MG TAB PO SCH ×2 (09:17→20:59)
[2016-10-26] MEDS: LACOSAMIDE 50 MG TAB PO SCH ×2 (09:18→20:38)
[2016-10-26] MEDS: POTASSIUM CHLORIDE 20 MEQ TABCR PO SCH (09:19)
[2016-10-26] MEDS: LACTULOSE SYRUP 20 GM/30 ML UDC PO SCH ×3 (09:21→20:34)
[2016-10-26] MEDS: INSULIN ASPART 100 UNITS/ML 3 ML PEN SC SCH ×4 (09:26→20:50)
[2016-10-26 12:09] VITALS: BP 131/76; PULSE 92; TEMP 36.5; O2SAT 97
--- NOTE | 2016-10-26 15:15 | ORTHOPEDIC CONSULTATION ---
DATE OF CONSULTATION: 10/26/2016 DATE OF CONSULTATION: 10/26/2016 HISTORY OF PRESENT ILLNESS: This is a 50-year-old female seen at the request of Dr. Rice and the medical service for acute onset left proximal shoulder and humeral pain. Apparently, the patient has been admitted to the hospital for management of encephalopathy and multiple other medical issues. The patient had been treated and discharged to home on 10/24/2016 and apparently the patient's left her alone and she had an unwitnessed fall in her room prior to discharge. She had facial contusions primarily in the left periorbital region, the right hand and had a workup for this which demonstrated comminuted fracture right nasal bone and other bruising. The patient then began to complain of left shoulder pain evening in the evening yesterday and subsequently had radiographs and then discovered a left proximal humerus fracture which remained occult, likely due to the other distracting injuries to the patient's face and nasal bones. Orthopedics was then consulted and she is being currently evaluated. The patient has no other complaints of other musculoskeletal injuries besides those noted above. PAST MEDICAL HISTORY: Acute bronchitis, acute hepatic encephalopathy, alkaline phosphatase elevation, anemia, back pain, bradycardia, break-through seizures, change in mental status, chronic low back pain, closed head injury, dehydration, dizziness, hyperammonemia, hypocalcemia, hypoglycemia, hypomagnesemia, thrombocytopenia, chronic weakness, asthma, cirrhosis secondary to STEVE, type 2 diabetes mellitus, diabetic gastroparesis, bipolar disorder, depression, migraine headaches, myelodysplastic syndrome, peptic ulcer disease, portal hypertension, seizures and pseudoseizures, parkinsonism and hypothyroidism. PAST SURGICAL HISTORY: Nasal septoplasty, appendectomy, cholecystectomy, hysterectomy, lumbar kyphoplasty, tonsillectomy, spinal nerve stimulator, portal placement right chest. ALLERGIES: AMOXICILLIN, AZITHROMYCIN, BACLOFEN, BUTALBITAL, CLARITHROMYCIN, DICYCLOMINE, PENICILLINS, TETRACYCLINE, SULINDAC, ADHESIVES WITH PLASTIC TAPE TOLERATED, METRONIDAZOLE, TRAMADOL, METOCLOPRAMIDE, FUROSEMIDE, BLUEBERRIES AND ORANGE PULP. MEDICATIONS: Please note the extensive list included in medical record. SOCIAL HISTORY: Denies tobacco or alcohol use. No current drug use. She is and lives with her family. She is disabled. PHYSICAL EXAMINATION: GENERAL: This is a 50-year-old woman underlying supine in her hospital room bed. She has extensive periorbital edema on the left orbit, bruising over the bridge of the septum of the nares with obvious difficulty breathing through the nasal passages with local swelling. EXTREMITIES: Examination of the left shoulder demonstrates point ecchymosis over the superior lateral aspect of the shoulder just inferior to the acromion process. She has swelling of the left proximal humerus, tenderness to palpation in the humerus with limited active and passive range of motion of the left upper extremity and shoulder due to pain and guarding. Radial pulses 2/4. Radial, ulnar, axillary and median nerve sensory and motor function appear to be intact. She has crepitation with active motion of her left proximal humerus. Radiographs demonstrated 100% displaced and angulated left proximal one-third humeral fracture distal to the proximal metaphyseal flare. Osteopenia is evident. IMPRESSION: Left 100% displaced angulated closed proximal one-third humeral shaft fracture just distal to the proximal metaphyseal flare. RECOMMENDATIONS: For open reduction internal fixation. Discussed care and case with Dr. Rice. He agrees patient will be a slightly increased risk for surgical management due to her multiple medical comorbidities; however, it will be safe for planned surgery. She will be made n.p.o. after midnight, consent has been signed. Will be counter signed by the patient's due to her waxing and waning encephalopathy. Sling for comfort. Thank you for the opportunity to consult in the care of this patient Marcelle Munson.
[2016-10-26 15:16] VITALS: BP 108/73; PULSE 93; TEMP 37.2; O2SAT 97
--- NOTE | 2016-10-26 17:43 | Progress Note ---
Subjective Date of Service: Oct 26, 2016. Subjective pt had left arm pain and confirmed proximal humeral fracture, ortho was consulted and will proceed to repair, pt was updated and agrees. despite some lethargy, ammonia is in good range Problem List Medical Problems: (1) Acute bronchitis Status: Acute (2) Acute hepatic encephalopathy Status: Acute (3) Alkaline phosphatase elevation Status: Acute (4) Anemia Status: Acute (5) Back pain Status: Acute (6) Bradycardia Status: Acute (7) Breakthrough seizure Status: Acute (8) Burn Status: Acute (9) Change in mental status Status: Acute (10) Change in mental status Status: Acute (11) Chronic low back pain Status: Acute (12) Closed head injury Status: Acute (13) Dehydration Status: Acute (14) Dizziness Status: Acute (15) Facial laceration Status: Acute (16) Fall Status: Acute (17) Fall Status: Acute (18) Fatigue Status: Acute (19) Hemorrhoid Status: Acute (20) Hepatic encephalopathy Status: Acute (21) Hepatic encephalopathy Status: Acute (22) Hepatic encephalopathy Status: Acute (23) Hepatic encephalopathy Status: Acute (24) Hepatic encephalopathy Status: Acute (25) Hepatic encephalopathy Status: Acute (26) Hepatic encephalopathy Status: Acute (27) Hepatic encephalopathy Status: Acute (28) Hyperammonemia Status: Acute (29) Hyperammonemia Status: Acute (30) Hyperammonemia Status: Acute (31) Hyperammonemia Status: Acute (32) Hypocalcemia Status: Acute (33) Hypocalcemia Status: Acute (34) Hypoglycemia Status: Acute (35) Hypokalemia Status: Acute (36) Hypomagnesemia Status: Acute (37) Increased ammonia level Status: Acute (38) Left foot pain Status: Acute (39) Leukopenia Status: Acute (40) Low back pain Status: Acute (41) Pain in pelvis Status: Acute (42) Pancytopenia Status: Acute (43) Right ear pain Status: Acute (44) Right groin pain Status: Acute (45) Right hip pain Status: Acute (46) Right upper lobe pneumonia Status: Acute (47) RUQ abdominal pain Status: Acute (48) Thrombocytopenia Status: Acute (49) Weakness Status: Acute (50) Weakness Status: Acute (51) Weakness Status: Acute (52) Weakness Status: Acute Review of Systems Constitutional: No fever, No chills Respiratory: No cough, No shortness of breath, No dyspnea on exertion Cardiac: + edema (facial from trauma), No chest pain Abdomen: No pain, No nausea, No diarrhea Neurologic: + weakness, No memory loss Psychiatric: No depression symptoms, No anhedonism, No anxiety Objective Vital Signs Date Time Temp Pulse Resp B/P (MAP) Pulse Ox O2 Delivery O2 Flow Rate FiO2 10/26/16 15:16 37.2 93 17 108/73 (85) 97 Room Air 10/26/16 12:09 36.5 92 18 131/76 (94) 97 Room Air 10/26/16 07:50 Room Air 10/26/16 07:23 36.7 80 20 99/49 (66) 99 Room Air 10/26/16 01:35 Room Air 10/25/16 23:13 36.8 90 24 123/68 (86) 98 Room Air 10/25/16 20:37 37.3 94 18 126/73 (90) 99 Room Air 10/25/16 19:51 Room Air Physical Exam General Appearance: WD/WN, + mild distress, + moderate distress Neck: supple, no JVD Respiratory/Chest: chest non-tender, lungs clear Cardiovascular: regular rate, rhythm, no murmur Abdomen: normal bowel sounds, non tender, soft Neurologic/Psychiatric: alert, oriented x 3 Laboratory Results Last 24 Hours Test 10/25/16 20:47 10/26/16 08:18 10/26/16 12:24 10/26/16 15:01 Bedside Glucose 194 mg/dl 119 mg/dl 213 mg/dl Ammonia 59.0 umol/L Assessment and Plan 50yo female with 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 Had worsened encephalopathy likely associated with medications ON the afternoon of 10/24, the pt was discharged to home, her left her alone and she had an unwitnessed fall in her room with facial contusions and right hand pain, no defined laceration, CT facial bones and hand, right comminuted and displaced nasal bone fracture, will add po clinda for mucosal breach and ENT will reduce fracture on 10/28, no hand fracture left shoulder x ray shows proximal humerus fracture, ortho planning on repair cautious use of opiate pain control hepatic encephalopathy now stable previously seeming to have worsened after increase in trileptal, now dose reduced and vimpat started for possible breakthrough seizures, will follow up with outpt neurology, ammonia checked and found to be in 50 range 10/26 seizure d/o now stable- the patient had a recent EEG in early September c/w seizures. . Dr. Frye recommends Keppra Vimpat and Trileptal, the Trileptal being at her prehospital dosing. RUL pneumonia -treated also now on clinda for nasal fracture given RUL did have ID see and pending Quanterferon Gold, negative results diabetic care will resume basal bolus insulin in acceptable range recent chest pain - had such for 3 days prior to admission. Suspect musculoskeletal, troponins negative. DVT proph - heparin TID expect placement once nasal fracture repaired. Continued [facility] stay due to: ambulation difficulties Discharge planning: shelter facility (vs home with HH)
[2016-10-26] MEDS: INSULIN GLARGINE SOLOSTAR 100 UNITS/ML 3 ML PEN SC SCH (20:50)
[2016-10-26 23:05] VITALS: BP 108/63; PULSE 82; TEMP 36.6; O2SAT 100
[2016-10-27] VITALS (8 sets, daily range): BP systolic 101–161; BP diastolic 58–81; PULSE 89–98; TEMP 36.7–37.7; O2SAT 95–100
[2016-10-27] MEDS: HYDROmorphone INJ 1 MG/ML SYR IV PRN ×2 (01:03→20:33)
[2016-10-27] MEDS ORDERED: NURSING DECISION MEDICATION ORDER SCH (01:30)
[2016-10-27] MEDS: HEPARIN SOD 5000 UNIT/0.5 ML CARP SQ SCH ×2 (05:26→13:06)
[2016-10-27] MEDS: INSULIN ASPART 100 UNITS/ML 3 ML PEN SC SCH ×4 (05:33→20:39)
[2016-10-27] MEDS: CLINDAMYCIN HCL 150 MG CAP PO SCH ×3 (05:58→17:53)
[2016-10-27 06:14] LABS: HEMATOCRIT 21.3 % (37-47); MEAN CELL VOLUME 108.1 fL (80-100); MEAN CORPUSCULAR HEMOGLOBIN 38.1 pg (25-34); MEAN CORPUSCULAR HGB CONC 35.2 g/dl (32-36); MEAN PLATELET VOLUME 9.9 fL (7.4-10.4); PLATELET COUNT 85 K/uL (130-400); RED BLOOD COUNT 1.97 M/uL (4.2-5.4); WHITE BLOOD COUNT 3.23 K/uL (4.8-10.8)
[2016-10-27 06:20] LABS: CALCIUM 7.3 mg/dl (8.5-10.1); CREATININE 0.63 mg/dl (0.60-1.20); POTASSIUM 4.2 mmol/L (3.5-5.1)
[2016-10-27] MEDS ORDERED: ROPIVACAINE 0.5% 5 MG/ML 30 ML VIAL ONE (06:58)
[2016-10-27] MEDS ORDERED: FENTANYL CITRATE INJ 50 MCG/1 ML 2 ML VIAL ONE ×3 (06:58→11:17)
[2016-10-27] MEDS ORDERED: ROCURONIUM BROMIDE 10 MG/ML 5 ML VIAL ONE (06:58)
[2016-10-27] MEDS ORDERED: PROPOFOL IV EMULSION 10 MG/ML 20 ML VIAL IV ONE (06:58)
[2016-10-27] MEDS ORDERED: LIDOCAINE HCL 2% 2 ML VIAL (20MG/ML) ONE (06:58)
[2016-10-27] MEDS ORDERED: ATROPINE SULFATE 0.1 MG/ML 5ML SYR IV PRN (07:00)
[2016-10-27] MEDS ORDERED: FENTANYL CITRATE INJ 50 MCG/1 ML 2 ML VIAL IV PRN (07:00)
[2016-10-27] MEDS ORDERED: ONDANSETRON INJ 2 MG/ML 2 ML VIAL IV PRN (07:00)
[2016-10-27] MEDS ORDERED: HYDROmorphone INJ 1 MG/ML SYR IV PRN (07:00)
[2016-10-27] MEDS ORDERED: EpHEDrine SULFATE INJ 50 MG/ML AMP IV PRN (07:00)
--- NOTE | 2016-10-27 08:03 | History & Physical Bridge Note ---
H&P Re-Evaluation Bridge Note: I have examined the patient, reviewed the History & Physical and in the interval since the performance of the History & Physical I have noted the following changes of clinical significance: No changes noted
[2016-10-27] MEDS ORDERED: VANCOMYCIN INJ 1,650 MG in SODIUM CHLORIDE 0.9% 500ML 500 ML IV ONE (08:45)
[2016-10-27] MEDS ORDERED: BUPIVACAINE/EPINEPHRINE 0.5% MPF 1:200,000 10 ML VIAL ONE (09:03)
[2016-10-27] MEDS ORDERED: ONDANSETRON INJ 2 MG/ML 2 ML VIAL ONE (09:09)
[2016-10-27] MEDS ORDERED: SUCCINYLCHOLINE 100MG/5ML SYR IV ONE (09:09)
[2016-10-27] MEDS ORDERED: BUPIVACAINE/EPINEPHRINE 0.5% MPF 1:200,000 10 ML VIAL INJ ONE (09:22)
[2016-10-27] MEDS: LACTULOSE SYRUP 20 GM/30 ML UDC PO SCH ×3 (10:36→20:05)
[2016-10-27] MEDS: RANITIDINE HCL 150 MG TAB PO SCH ×2 (10:37→20:40)
[2016-10-27] MEDS: BUDESONIDE/FORMOTEROL FUMARATE 160/4.5 60 PUFFS/INHALER INH SCH ×2 (10:37→20:05)
[2016-10-27] MEDS: POTASSIUM CHLORIDE 20 MEQ TABCR PO SCH (10:38)
[2016-10-27] MEDS: PANTOprazole SOD 40 MG TAB PO SCH (10:38)
[2016-10-27] MEDS: RIFAXIMIN TAB 550 MG TAB PO SCH ×2 (10:39→20:41)
[2016-10-27] MEDS ORDERED: GLYCOPYRROLATE INJ 0.2 MG/ML VIAL ONE (11:16)
[2016-10-27] MEDS ORDERED: NEOSTIGMINE METHYLSULFATE 5 MG/5 ML SYR ONE (11:16)
--- NOTE | 2016-10-27 11:19 | DIAGNOSTIC IMAGING REPORT ---
LEFT SHOULDER MIN 2 VIEW ROUTINE CLINICAL HISTORY: ORIF LT SHOULDER TECHNIQUE: Image intensifier COMPARISON STUDY: None FINDINGS: Upper reduction internal fixation of a left shoulder fracture. Alignment is anatomic. IMPRESSION: Anatomic alignment status post open reduction internal fixation The above report was generated using voice recognition software. It may contain grammatical, syntax or spelling errors. Electronically signed by: Kenroy Yates M.D. 10/27/2016 11:17 AM Dictated Date/Time: 10/27/2016 11:16 AM
--- NOTE | 2016-10-27 11:51 | [facility] Operative Report ---
Operative Report Operative Date Oct 27, 2016. Pre-Operative Diagnosis LEFT Displaced, Angulated Proximal Humerus Fracture Post-Operative Diagnosis LEFT Displaced, Angulated Proximal Humerus Fracture Procedure(s) Performed OPEN REDUCTION INTERNAL FIXATION LEFT PROXIMAL HUMERAL FRACTURE Surgeon DR. Joseph GARNETT Rda Surgeon(s) Hazel CHONG PAC Estimated Blood Loss 250ml Findings See Dict Specimens NONE Drains none Anesthesia Gen. LMA with local Complication(s) None Disposition Recovery Room / PACU Indications Is a 50-year-old female who sustained an unwitnessed fall and was invading of left shoulder and proximal arm pain. She had a radiograph which demonstrated a displaced and angulated left proximal humerus fracture. Patient was then scheduled for surgery as indicated. Description of Procedure All potential risks, benefits, complications, alternatives, rehabilitation, potential for incomplete relief of symptoms, need for further surgery, persistent numbness, weakness, stiffness, persistent pain, DVT, PE, , bone fracture, hardware breakage, nonunion, malunion or wound complications were discussed with the patient. The patient decided to proceed with the procedure as indicated. Procedure: The patient was taken to the operative suite and placed supine in the operating table. After review of the consent and identification of proper operative site the patient was anesthetized and LMA was placed. Left upper extremities and sterilely prepped and draped in usual fashion. 15 blade scalpel incision was used to make an incision from the tip of the acromion over the lateral aspect of the left proximal arm. Incision was then deepened to subcutaneous tissue. Meticulous hemostasis was achieved with electrocautery. Parker's fascia was then incised in line with skin incision. Deltoid fascia was incised in line skin incision and the deltoid raphae was then identified and the interval between the anterior and middle heads of the deltoid was then carefully dissected through to the level of the bursa. Deltoid is and gently retracted with right angle retractors. The bursa was then tracked distally to the level of the axillary nerve and circumflex humeral artery. Next a vessel loop was then passed under the neurovascular bundle and used to darryl the tissue to protect. Next the bursa was then sharply excised with Metzenbaum scissors. The fascia was then incised proximal humerus and the intact superior aspect the greater tuberosity. The rotator cuff was noted to be intact. Next distal to the axillary nerve deltoid was gently split with Metzenbaum scissors down the level of the periosteum. The fracture is easily identified was noted to be some comminution extending proximally to the level greater tuberosity however there is no direct involvement of the greater tuberosity. A Synthes locking proximal humeral plate was then gently slid under the neurovascular bundle and proximal a 2 mm distal to the superior margin of the greater tuberosity. This was positioned such a fashion to avoid impingement subacromial space. Next the plate was then provisionally fixated to the proximal humerus using multiple K wires. This performed under live fluoroscopic assistance. Next a Verbruge clamp was then applied to the bone using gentle reduction maneuver to reduce the bone to the plate under live fluoroscopic assistance. Next a nonlocking screw was placed in the plate to use as a traction device to compress the bone to the plate and reduced the fracture under live fluoroscopic assistance. This performed with a single 2.5 mm screw. Next the alignment was confirmed and manipulated with regard to the plate and the 2 major fragments the fracture the plate was then locked in place distally with a second nonlocking screw. A third nonlocking screws placed in the proximal most portion of the plate to stabilize the plate to the proximal humeral head fragment. Next multiple locking screws were placed first in the proximal portion of the fracture primarily of the humeral head underlie fluoroscopic assistance. Next the locking screws then placed distally distal fragment locking plate and fracture fragments and a stable construct. Finally the nonlocking screws then removed and replaced with locking screws were live fluoroscopic assistance. Next the the fractures noted to be in near-anatomic reduction with stable fixation. The wound was copiously irrigated with sterile normal saline until clear. The periosteal tissue adjacent to the rotator cuff insertion was then closed using 1 Vicryl over the proximal plate next the deltoid fascia was then closed using interrupted #1 Vicryl suture. Next the vessel loop was removed from around the neurovascular bundle including the axillary nerve is noted to be intact and with viable surrounding soft tissue. The wound was once again irrigated with sternal saline. Next 30 mL of half percent Marcaine with epinephrine was injected around the rogelio-incisional area. Next the dermis was closed using buried interrupted 2-0 Vicryl. Skin is closed using skin jerri. A sterile compressive dressing and sling was applied. The patient was awakened and taken to recovery in stable condition. I attest to the content of the Intraoperative Record and any orders documented therein. Any exceptions are noted below.
--- NOTE | 2016-10-27 12:46 | Anesthesiology Progress Note ---
Anesthesia Post Op Note Date & Time Oct 27, 2016 at 12:46 Vital Signs Pain Intensity: 0 Vital Signs Past 12 Hours Date Time Temp Pulse Resp B/P (MAP) Pulse Ox O2 Delivery O2 Flow Rate FiO2 10/27/16 12:39 80 20 100 10/27/16 12:39 80 20 10/27/16 12:36 152/69 10/27/16 12:34 83 22 100 10/27/16 12:34 84 22 10/27/16 12:31 144/67 10/27/16 12:29 84 23 10/27/16 12:29 83 23 100 10/27/16 12:26 137/71 10/27/16 12:24 76 24 100 10/27/16 12:24 76 24 10/27/16 12:21 162/72 10/27/16 12:19 81 20 100 10/27/16 12:19 81 20 10/27/16 12:18 83 24 100 10/27/16 12:18 82 24 10/27/16 12:16 159/81 10/27/16 12:14 36.8 82 23 159/81 100 Mask 2 10/27/16 12:13 92 28 10/27/16 12:13 91 28 100 10/27/16 12:12 86 23 10/27/16 12:12 85 23 100 10/27/16 12:11 163/68 10/27/16 12:07 84 23 100 10/27/16 12:07 85 23 10/27/16 12:06 154/78 10/27/16 12:03 95 28 10/27/16 12:03 95 28 100 10/27/16 12:02 145/64 10/27/16 11:58 92 22 100 10/27/16 11:58 92 22 10/27/16 11:57 163/72 10/27/16 11:53 95 22 100 10/27/16 11:53 95 22 10/27/16 11:51 135/88 10/27/16 11:48 97 20 100 10/27/16 11:48 90 20 10/27/16 11:47 145/86 10/27/16 11:44 107/70 10/27/16 11:43 94 13 10/27/16 11:43 36.4 94 20 107/70 100 Mask 10 10/27/16 11:43 94 13 100 10/27/16 07:09 36.8 93 16 101/66 (78) 100 Room Air Notes Mental Status: alert / awake / arousable, participated in evaluation Pt Amnestic to Procedure: Yes Nausea / Vomiting: adequately controlled Pain: adequately controlled Airway Patency, RR, SpO2: stable & adequate BP & HR: stable & adequate Hydration State: stable & adequate Anesthetic Complications: no major complications apparent
[2016-10-27] MEDS: LEVETIRACETAM 1000 MG PO SCH ×2 (13:05→20:41)
[2016-10-27] MEDS: TOPIRAMATE 50 MG TAB PO SCH ×2 (13:05→20:44)
[2016-10-27] MEDS: OXCARBAZEPINE 300 MG TAB PO SCH ×2 (13:06→20:43)
[2016-10-27] MEDS: LACOSAMIDE 50 MG TAB PO SCH ×2 (13:06→20:40)
--- NOTE | 2016-10-27 13:29 | DIAGNOSTIC IMAGING REPORT ---
LEFT HUMERUS MIN 2 VIEWS ROUTINE CLINICAL HISTORY: post-op COMPARISON: None. DISCUSSION: Anatomic alignment status post plate placement of the humerus. Expected soft tissue postoperative change IMPRESSION: Anatomic alignment status post open reduction internal fixation of the left humeral fracture The above report was generated using voice recognition software. It may contain grammatical, syntax or spelling errors. Electronically signed by: Kenroy Yates M.D. 10/27/2016 1:28 PM Dictated Date/Time: 10/27/2016 1:27 PM
--- NOTE | 2016-10-27 14:35 | Progress Note ---
Subjective Date of Service: Oct 27, 2016. Subjective blaire is in her typical state sleepy but oriented for OR 10/27 for repair of left humerus fracture Problem List Medical Problems: (1) Acute bronchitis Status: Acute (2) Acute hepatic encephalopathy Status: Acute (3) Alkaline phosphatase elevation Status: Acute (4) Anemia Status: Acute (5) Back pain Status: Acute (6) Bradycardia Status: Acute (7) Breakthrough seizure Status: Acute (8) Burn Status: Acute (9) Change in mental status Status: Acute (10) Change in mental status Status: Acute (11) Chronic low back pain Status: Acute (12) Closed head injury Status: Acute (13) Dehydration Status: Acute (14) Dizziness Status: Acute (15) Facial laceration Status: Acute (16) Fall Status: Acute (17) Fall Status: Acute (18) Fatigue Status: Acute (19) Hemorrhoid Status: Acute (20) Hepatic encephalopathy Status: Acute (21) Hepatic encephalopathy Status: Acute (22) Hepatic encephalopathy Status: Acute (23) Hepatic encephalopathy Status: Acute (24) Hepatic encephalopathy Status: Acute (25) Hepatic encephalopathy Status: Acute (26) Hepatic encephalopathy Status: Acute (27) Hepatic encephalopathy Status: Acute (28) Hyperammonemia Status: Acute (29) Hyperammonemia Status: Acute (30) Hyperammonemia Status: Acute (31) Hyperammonemia Status: Acute (32) Hypocalcemia Status: Acute (33) Hypocalcemia Status: Acute (34) Hypoglycemia Status: Acute (35) Hypokalemia Status: Acute (36) Hypomagnesemia Status: Acute (37) Increased ammonia level Status: Acute (38) Left foot pain Status: Acute (39) Leukopenia Status: Acute (40) Low back pain Status: Acute (41) Pain in pelvis Status: Acute (42) Pancytopenia Status: Acute (43) Right ear pain Status: Acute (44) Right groin pain Status: Acute (45) Right hip pain Status: Acute (46) Right upper lobe pneumonia Status: Acute (47) RUQ abdominal pain Status: Acute (48) Thrombocytopenia Status: Acute (49) Weakness Status: Acute (50) Weakness Status: Acute (51) Weakness Status: Acute (52) Weakness Status: Acute Review of Systems Constitutional: + weakness, + fatigue, No fever, No chills Respiratory: No cough, No shortness of breath Cardiac: No chest pain, No PND, No edema, No claudication Breast: No breast lump Abdomen: + diarrhea, No pain, No nausea, No vomiting, No constipation Musculoskeletal: + joint pain, + muscle pain Psychiatric: + depression symptoms, + anxiety, + substance abuse Objective Vital Signs Date Time Temp Pulse Resp B/P (MAP) Pulse Ox O2 Delivery O2 Flow Rate FiO2 10/27/16 14:00 36.8 98 18 137/81 (99) 95 Nasal Cannula 2.0 10/27/16 13:45 37.4 98 19 132/73 (92) 100 Oxymask 2.0 10/27/16 13:00 37.4 92 18 161/71 (101) 100 Oxymask 2.0 10/27/16 13:00 Oxymask 2.0 10/27/16 13:00 100 Mask 2.0 10/27/16 12:50 93 100 10/27/16 12:50 93 10/27/16 12:47 145/66 10/27/16 12:45 81 20 10/27/16 12:45 81 20 100 10/27/16 12:41 143/75 10/27/16 12:40 79 17 10/27/16 12:40 79 17 100 10/27/16 12:39 80 20 100 10/27/16 12:39 80 20 10/27/16 12:36 152/69 10/27/16 12:34 83 22 100 10/27/16 12:34 84 22 10/27/16 12:31 144/67 10/27/16 12:29 84 23 10/27/16 12:29 83 23 100 10/27/16 12:26 137/71 10/27/16 12:24 76 24 100 10/27/16 12:24 76 24 10/27/16 12:21 162/72 10/27/16 12:19 81 20 100 10/27/16 12:19 81 20 10/27/16 12:18 83 24 100 10/27/16 12:18 82 24 10/27/16 12:16 159/81 10/27/16 12:14 36.8 82 23 159/81 100 Mask 2 10/27/16 12:13 92 28 10/27/16 12:13 91 28 100 10/27/16 12:12 86 23 10/27/16 12:12 85 23 100 10/27/16 12:11 163/68 10/27/16 12:07 84 23 100 10/27/16 12:07 85 23 10/27/16 12:06 154/78 10/27/16 12:03 95 28 10/27/16 12:03 95 28 100 10/27/16 12:02 145/64 10/27/16 11:58 92 22 100 10/27/16 11:58 92 22 10/27/16 11:57 163/72 10/27/16 11:53 95 22 100 10/27/16 11:53 95 22 10/27/16 11:51 135/88 10/27/16 11:48 97 20 100 10/27/16 11:48 90 20 10/27/16 11:47 145/86 10/27/16 11:44 107/70 10/27/16 11:43 94 13 10/27/16 11:43 36.4 94 20 107/70 100 Mask 10 10/27/16 11:43 94 13 100 10/27/16 07:09 36.8 93 16 101/66 (78) 100 Room Air 10/26/16 23:28 Room Air 10/26/16 23:05 36.6 82 16 108/63 (78) 100 Room Air 10/26/16 16:00 Room Air 10/26/16 15:16 37.2 93 17 108/73 (85) 97 Room Air Physical Exam General Appearance: WD/WN, + pertinent finding (facial swelling and ecchymosis) Neck: supple, thyroid normal Respiratory/Chest: chest non-tender, lungs clear Cardiovascular: regular rate, rhythm, no murmur Abdomen: normal bowel sounds, non tender, soft Extremities: + pertinent finding (tender to left upper arm) Neurologic/Psychiatric: alert, oriented x 3 Laboratory Results Last 24 Hours Test 10/26/16 15:01 10/26/16 20:32 10/27/16 05:29 10/27/16 05:30 Ammonia 59.0 umol/L Bedside Glucose 241 mg/dl 137 mg/dl White Blood Count 3.23 K/uL Red Blood Count 1.97 M/uL Hemoglobin 7.5 g/dL Hematocrit 21.3 % Mean Corpuscular Volume 108.1 fL Mean Corpuscular Hemoglobin 38.1 pg Mean Corpuscular Hemoglobin Concent 35.2 g/dl RDW Standard Deviation 62.7 fL RDW Coefficient of Variation 16.2 % Platelet Count 85 K/uL Mean Platelet Volume 9.9 fL Sodium Level 141 mmol/L Potassium Level 4.2 mmol/L Chloride Level 113 mmol/L Carbon Dioxide Level 24 mmol/L Anion Gap 4.0 mmol/L Blood Urea Nitrogen 15 mg/dl Creatinine 0.63 mg/dl Est Creatinine Clear Calc Drug Dose 131.9 ml/min Estimated GFR () 121.2 Estimated GFR (Non- 104.6 BUN/Creatinine Ratio 24.0 Random Glucose 134 mg/dl Calcium Level 7.3 mg/dl Total Bilirubin 1.5 mg/dl Aspartate Amino Transf (AST/SGOT) 44 U/L Alanine Aminotransferase (ALT/SGPT) 40 U/L Alkaline Phosphatase 116 U/L Total Protein 4.9 gm/dl Albumin 2.5 gm/dl Globulin 2.4 gm/dl Albumin/Globulin Ratio 1.0 Test 10/27/16 09:14 10/27/16 11:48 10/27/16 13:18 Bedside Glucose 118 mg/dl 115 mg/dl 144 mg/dl Assessment and Plan 50yo female with 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 Had worsened encephalopathy likely associated with medication changes specifically anti epileptics, suffered a fall when left unattended by and fractured right nasal bones and left humerus, for repair of both ON the afternoon of 10/24, the pt was discharged to home, her left her alone and she had an unwitnessed fall in her room with facial contusions and right hand pain, no defined laceration, CT facial bones and hand, right comminuted and displaced nasal bone fracture, will add po clinda for mucosal breach and ENT will reduce fracture on 10/28, no hand fracture left shoulder x ray shows proximal humerus fracture, ortho planning on repair cautious use of opiate pain control hepatic encephalopathy much improved previously seeming to have worsened after increase in trileptal, now dose reduced and vimpat started for possible breakthrough seizures, will follow up with outpt neurology, ammonia checked and found to be in 50 range 10/26, assure to have lactulose despite OR npo status seizure d/o continues to be stable- the patient had a recent EEG in early September c /w seizures. . Dr. Frye recommends Keppra Vimpat and Trileptal, the Trileptal being at her prehospital dosing. RUL pneumonia -treated but now on clinda for nasal fracture given RUL did have ID see and Quanterferon Gold sent with negative results diabetic care will resume basal bolus insulin in acceptable range recent chest pain - had such for 3 days prior to admission. Suspect musculoskeletal, troponins negative. DVT proph - heparin TID expect placement once nasal fracture repaired. Continued [facility] stay due to: ambulation difficulties Discharge planning: long-term facility (vs home with HH)
[2016-10-27] MEDS ORDERED: NURSING VERBAL MED ORDER ONE ×2 (15:00→23:30)
[2016-10-27] MEDS: OXYCODONE HCL IR 5 MG TAB (IMMEDIATE RELEASE) PO PRN ×2 (16:20→23:43)
[2016-10-27] MEDS: KETOROLAC TROMETHAMINE 10 MG TAB PO PRN (16:38)
[2016-10-27] MEDS: INSULIN GLARGINE SOLOSTAR 100 UNITS/ML 3 ML PEN SC SCH (20:39)
[2016-10-27] MEDS ORDERED: VANCOMYCIN INJ 1,650 MG in SODIUM CHLORIDE 0.9% 500ML 500 ML IV SCH (21:00)
[2016-10-28] VITALS (11 sets, daily range): BP systolic 91–120; BP diastolic 54–73; PULSE 82–102; TEMP 36.6–38.7; O2SAT 94–100
[2016-10-28] MEDS: CLINDAMYCIN HCL 150 MG CAP PO SCH ×4 (00:28→17:51)
[2016-10-28] MEDS: HYDROmorphone INJ 1 MG/ML SYR IV PRN ×2 (02:58→14:17)
[2016-10-28] MEDS: INSULIN ASPART 100 UNITS/ML 3 ML PEN SC SCH ×4 (06:00→22:01)
[2016-10-28] MEDS ORDERED: ONDANSETRON INJ 2 MG/ML 2 ML VIAL IV PRN (07:15)
[2016-10-28] MEDS ORDERED: EpHEDrine SULFATE INJ 50 MG/ML AMP IV PRN (07:15)
[2016-10-28] MEDS ORDERED: FENTANYL CITRATE INJ 50 MCG/1 ML 2 ML VIAL IV PRN (07:15)
[2016-10-28] MEDS ORDERED: ATROPINE SULFATE 0.1 MG/ML 5ML SYR IV PRN (07:15)
[2016-10-28] MEDS: KETOROLAC TROMETHAMINE 10 MG TAB PO PRN ×2 (07:36→18:25)
--- NOTE | 2016-10-28 08:12 | Orthopedic Progress Note ---
Orthopedic Progress Note Date of Service Oct 28, 2016. Subjective Post OP Day: 1 Reports: feeling well, Denies: chest pain, SOB, nausea / vomiting, light headedness, calf pain Additional Notes: Slightly febrile this am at 37.8. Mild tachycardia, but has been running high 90s. States pain is controlled and she is comfortable resting in bed. Currently NPO for closed reduction of her nose this am. Objective calves soft nontender, N/V intact, dressing C/D/I (mild-mod bloody drainage proximal half of dressing. not saturated.), A&O x3 Left sided orbital edema/ecchymosis. LUE in sling. Date Time Temp Pulse Resp B/P (MAP) Pulse Ox O2 Delivery O2 Flow Rate FiO2 10/28/16 07:08 37.8 102 19 118/72 (87) 100 Room Air 10/28/16 03:25 36.6 93 16 110/69 (83) 100 Nasal Cannula 2.0 10/27/16 23:38 Nasal Cannula 2.0 10/27/16 23:05 37.4 89 18 126/67 (86) 98 Nasal Cannula 2.0 10/27/16 19:43 36.7 90 18 110/65 (80) 100 Room Air 10/27/16 16:32 37.7 93 16 116/58 (77) 100 Nasal Cannula 2.0 10/27/16 15:45 Nasal Cannula 2.0 10/27/16 15:28 36.7 97 18 112/61 (78) 100 Nasal Cannula 2.0 10/27/16 14:00 36.8 98 18 137/81 (99) 95 Nasal Cannula 2.0 10/27/16 13:45 37.4 98 19 132/73 (92) 100 Oxymask 2.0 10/27/16 13:00 37.4 92 18 161/71 (101) 100 Oxymask 2.0 10/27/16 13:00 Oxymask 2.0 10/27/16 13:00 100 Mask 2.0 10/27/16 12:50 93 100 10/27/16 12:50 93 10/27/16 12:47 145/66 10/27/16 12:45 81 20 10/27/16 12:45 81 20 100 10/27/16 12:41 143/75 10/27/16 12:40 79 17 7/30/17 12:40 79 17 100 10/27/16 12:39 80 20 100 10/27/16 12:39 80 20 10/27/16 12:36 152/69 10/27/16 12:34 83 22 100 10/27/16 12:34 84 22 10/27/16 12:31 144/67 10/27/16 12:29 84 23 10/27/16 12:29 83 23 100 10/27/16 12:26 137/71 10/27/16 12:24 76 24 100 10/27/16 12:24 76 24 10/27/16 12:21 162/72 10/27/16 12:19 81 20 100 10/27/16 12:19 81 20 10/27/16 12:18 83 24 100 10/27/16 12:18 82 24 10/27/16 12:16 159/81 10/27/16 12:14 36.8 82 23 159/81 100 Mask 2 10/27/16 12:13 92 28 10/27/16 12:13 91 28 100 10/27/16 12:12 86 23 10/27/16 12:12 85 23 100 10/27/16 12:11 163/68 10/27/16 12:07 84 23 100 10/27/16 12:07 85 23 10/27/16 12:06 154/78 10/27/16 12:03 95 28 10/27/16 12:03 95 28 100 10/27/16 12:02 145/64 10/27/16 11:58 92 22 100 10/27/16 11:58 92 22 10/27/16 11:57 163/72 10/27/16 11:53 95 22 100 10/27/16 11:53 95 22 10/27/16 11:51 135/88 10/27/16 11:48 97 20 100 10/27/16 11:48 90 20 10/27/16 11:47 145/86 10/27/16 11:44 107/70 10/27/16 11:43 94 13 10/27/16 11:43 36.4 94 20 107/70 100 Mask 10 10/27/16 11:43 94 13 100 Assessment & Plan Assessment: POD#1 sp ORIF left humerus Acute blood loss anemia- Hgb 7.5 yesterday. No labs ordered today, will recheck since she is post op. Plan: NPO today for closed reduction nose. Pain controlled with Dilaudid and Shelbi. Medical management. Inhouse Planning Pain Management: Dilaudid, Oxy IR Discharge Planning Discharge Planning: uncertain
[2016-10-28 09:20] LABS: BASO % 0.4 %; BASO ABS # 0.02 K/uL (0-0.2); COMPLETE YES; EOS % 2.7 %; HEMATOCRIT 27.1 % (37-47); LYMPH % 18.9 %; MEAN CELL VOLUME 100.4 fL (80-100); MEAN CORPUSCULAR HEMOGLOBIN 34.1 pg (25-34); MEAN CORPUSCULAR HGB CONC 33.9 g/dl (32-36); MEAN PLATELET VOLUME 9.3 fL (7.4-10.4); MONO % 12.4 %; NEUT % 65.6 %; PLATELET COUNT 90 K/uL (130-400); WHITE BLOOD COUNT 4.77 K/uL (4.8-10.8)
[2016-10-28] MEDS ORDERED: PROPOFOL IV EMULSION 10 MG/ML 20 ML VIAL IV ONE (09:22)
[2016-10-28] MEDS ORDERED: FENTANYL CITRATE INJ 50 MCG/1 ML 2 ML VIAL ONE (09:22)
[2016-10-28] MEDS ORDERED: MIDAZOLAM HCL 1 MG/ML 2ML VIAL ONE (09:22)
[2016-10-28] MEDS ORDERED: ONDANSETRON INJ 2 MG/ML 2 ML VIAL ONE (09:22)
[2016-10-28] MEDS ORDERED: LIDOCAINE HCL 2% 2 ML VIAL (20MG/ML) ONE (09:22)
[2016-10-28] MEDS ORDERED: ROCURONIUM BROMIDE 10 MG/ML 5 ML VIAL ONE (09:22)
[2016-10-28 09:35] LABS: BUN/CREATININE RATIO 20.2 (10-20); CREATININE 0.86 mg/dl (0.60-1.20); POTASSIUM 4.2 mmol/L (3.5-5.1)
[2016-10-28] MEDS ORDERED: LIDOCAINE 4% INH SOLN 4 ML BTL ONE (10:05)
[2016-10-28] MEDS ORDERED: EpINEphrine INJ 1MG/ML AMP 1 MG/ML AMP ONE (10:05)
--- NOTE | 2016-10-28 10:41 | [facility] Operative Report ---
Operative Report Operative Date Oct 28, 2016. Pre-Operative Diagnosis Nasal Fracture Post-Operative Diagnosis Nasal Fracture Procedure(s) Performed Closed Reduction Nasal Fracture With Stabilization Surgeon Dr. Sams Rug Hooker Surgeon(s) none Estimated Blood Loss 5ML Findings DEPRESSED LEFT AND ELEVATED RIGHT COMMINUTED NASAL BONE FRACTURES WITH SEVERE NASAL DORSUM DEVIATION TO RIGHT Specimens none per surgeon Drains none Anesthesia Gen. LMA with local Disposition Recovery Room / PACU I attest to the content of the Intraoperative Record and any orders documented therein. Any exceptions are noted below.
[2016-10-28] MEDS ORDERED: SUCCINYLCHOLINE CHLORIDE 20 MG/ML 10 ML VIAL IV ONE (10:49)
--- NOTE | 2016-10-28 11:30 | Anesthesiology Progress Note ---
Anesthesia Post Op Note Date & Time Oct 28, 2016 at 11:29 Vital Signs Pain Intensity: 2 Vital Signs Past 12 Hours Date Time Temp Pulse Resp B/P (MAP) Pulse Ox O2 Delivery O2 Flow Rate FiO2 10/28/16 11:20 37.4 85 20 115/70 99 Mask 2 10/28/16 11:08 87 19 10/28/16 11:08 87 19 100 10/28/16 11:06 100/52 10/28/16 11:03 90 18 99 10/28/16 11:03 90 18 10/28/16 11:01 105/52 10/28/16 10:58 93 21 10/28/16 10:58 93 21 100 10/28/16 10:56 112/59 10/28/16 10:53 95 27 100 10/28/16 10:53 95 27 10/28/16 10:51 105/58 10/28/16 10:48 95 25 10/28/16 10:48 96 25 99 10/28/16 10:44 102/49 10/28/16 10:43 37.7 96 18 102/49 100 Mask 10 10/28/16 07:30 Nasal Cannula 2.0 10/28/16 07:08 37.8 102 19 118/72 (87) 100 Room Air 10/28/16 03:25 36.6 93 16 110/69 (83) 100 Nasal Cannula 2.0 10/27/16 23:38 Nasal Cannula 2.0 Notes Mental Status: alert / awake / arousable, participated in evaluation Pt Amnestic to Procedure: Yes Nausea / Vomiting: adequately controlled Pain: adequately controlled Airway Patency, RR, SpO2: stable & adequate BP & HR: stable & adequate Hydration State: stable & adequate Anesthetic Complications: no major complications apparent
[2016-10-28] MEDS: LACTULOSE SYRUP 20 GM/30 ML UDC PO SCH ×3 (12:52→21:00)
[2016-10-28] MEDS: PANTOprazole SOD 40 MG TAB PO SCH (12:53)
[2016-10-28] MEDS: POTASSIUM CHLORIDE 20 MEQ TABCR PO SCH (12:53)
[2016-10-28] MEDS: TOPIRAMATE 50 MG TAB PO SCH ×2 (12:54→22:03)
[2016-10-28] MEDS: RIFAXIMIN TAB 550 MG TAB PO SCH ×2 (12:55→22:03)
[2016-10-28] MEDS: LACOSAMIDE 50 MG TAB PO SCH ×2 (12:55→22:03)
[2016-10-28] MEDS: RANITIDINE HCL 150 MG TAB PO SCH ×2 (12:56→22:02)
--- NOTE | 2016-10-28 12:58 | OPERATIVE REPORT ---
DATE OF OPERATION: 10/28/2016 PREOPERATIVE DIAGNOSIS: Comminuted displaced nasal bone fractures. POSTOPERATIVE DIAGNOSIS: Comminuted displaced nasal bone fractures. PROCEDURE: Closed reduction of nasal fracture with stabilization. SURGEON: Dr. Sams. ANESTHESIA: General endotracheal. ESTIMATED BLOOD LOSS: 5 mL FINDINGS: 1. Severely displaced right nasal dorsum due to comminuted nasal bone fractures with depressed left and elevated right nasal bone fractures. 2. Excellent anatomic reduction with closed reduction technique. SPECIMENS: None. COMPLICATIONS: None. INDICATIONS FOR THE PROCEDURE: The patient is a 50-year-old female who sustained a nasal fracture after falling in the hospital right before she was about to be discharged. She sustained comminuted nasal bone fractures with depressed left and elevated right nasal bone fractures with severe nasal dorsum deviation to the right hand side causing a cosmetic deformity. She presents for the above-mentioned procedure on an inpatient elective basis. DETAILS OF PROCEDURE: After informed consent had been obtained from the patient and signed by her due to her inability to sign due to a hand injury, the patient was wheeled to the operating room, and on her own hospital bed, she underwent general endotracheal anesthesia. Lidocaine and epinephrine pledgets were placed in bilateral nasal cavities and pressure applied. After allowing adequate time for vasoconstriction and anesthesia, the pledgets were removed. The nasal septum was inspected and this was found to be relatively midline. There were some healing mucosal lacerations involving the superior nasal vault bilaterally, worse on the right hand side. A Rangel elevator was inserted into the left nasal cavity, and while pressing right to left, excellent anatomic reduction of the nasal bone fractures was achieved. Prior to the reduction, the patient's nasal dorsum was severely deviated to the right with depressed left and elevated right comminuted nasal bone fractures. After reduction, the nasal dorsum was found to be straight. A [place] splint was placed in standard fashion. The nasal septum was inspected and this was found to be midline. Nasal cavities and nasopharynx were then suctioned. This marked the end of the case. The patient tolerated the procedure well, there were no apparent complications. The patient was extubated and transferred to the recovery room in stable condition. I attest to the content of the Intraoperative Record and any orders documented therein. Any exceptions are noted below. CYNDI
[2016-10-28] MEDS: BUDESONIDE/FORMOTEROL FUMARATE 160/4.5 60 PUFFS/INHALER INH SCH ×2 (13:02→21:00)
[2016-10-28] MEDS: OXCARBAZEPINE 300 MG TAB PO SCH ×2 (13:16→21:00)
[2016-10-28] MEDS: LEVETIRACETAM 1000 MG PO SCH ×2 (13:18→22:05)
--- NOTE | 2016-10-28 15:00 | Hospitalist Progress Note ---
Hospitalist Progress Note Date of Service Oct 28, 2016. (Elisa Deleon PA-C) Subjective Pt evaluation today including: conversation w/ patient, physical exam, chart review, lab review, review of studies, review of inpatient medication list Patient seen and evaluated. So had nasal repair this AM by ENT. She states she has minimal pain in her face and L arm due to repair yesterday but states the current medication regimen is sufficient She is appropriately mentating and plans to go to [facility] when medically cleared. Verbalizes no complaints at this time. No visual changes with extensive edema and ecchymosis of face. Constitutional: No fever, No chills Eyes: No worsening of vision, No diplopia ENT: + problem reported (nasal and facial pain), No sore throat, No trouble swallowing Respiratory: No shortness of breath Cardiovascular: No chest pain Abdomen: No pain, No nausea, No vomiting Musculoskeletal: No swelling Female : No dysuria Skin: No rash (Elisa Deleon PA-C) Medications Current Inpatient Medications Medications (Trade) Dose Ordered Sig/Danita Route Start Time Stop Time Status Last Admin Dose Admin Ondansetron HCl (Zofran Inj) 4 mg Q6H PRN IV 10/14/16 18:30 11/13/16 18:29 10/25/16 04:32 4 MG Budesonide/ Formoterol Fumarate (Symbicort 160/ 4.5 Inh) 2 puffs BID INH 10/14/16 21:00 11/13/16 20:59 10/25/16 21:40 2 PUFFS Albuterol/ Ipratropium (Duoneb) 3 ml QIDR PRN INH 10/14/16 18:30 11/13/16 18:29 Glucose (Glucose 40% Gel) 15-30 GRAMS 15 GRAMS... UD PRN PO 10/14/16 19:15 11/13/16 19:14 Glucose (Glucose Chew Tab) 4-8 Tablets 4 Tabl... UD PRN PO 10/14/16 19:15 11/13/16 19:14 Dextrose (Dextrose 50% 50ML Syringe) 25-50ML OF 50% DW IV FOR... UD PRN IV 10/14/16 19:15 11/13/16 19:14 Glucagon (Glucagon Inj) 1 mg UD PRN SQ 10/14/16 19:15 11/13/16 19:14 Heparin Sodium (Porcine) (Heparin 100 Unit/ml 5ml Flush) 5 ml PRN PRN IV 10/15/16 02:45 11/14/16 02:44 10/28/16 14:19 5 ML Albuterol (Ventolin Hfa Inhaler) 2 puffs Q4H PRN INH 10/15/16 08:00 11/14/16 07:59 Epinephrine (Epipen) 0.3 mg UD PRN IM 10/15/16 08:00 11/14/16 07:59 Ranitidine HCl (zANTac TAB) 150 mg BID PO 10/15/16 09:00 11/14/16 08:59 10/28/16 12:56 150 MG Pantoprazole Sodium (Protonix Tab) 40 mg QAM PO 10/15/16 09:00 11/14/16 08:59 10/28/16 12:53 40 MG Potassium Chloride (Klor-Con Tab) 20 meq QAM PO 10/17/16 09:00 11/14/16 08:59 10/28/16 12:53 20 MEQ Oxcarbazepine (Trileptal) 600 mg BID PO 10/18/16 21:00 11/16/16 08:59 10/28/16 13:16 600 MG Rifaximin (Xifaxan Tab) 550 mg BID PO 10/20/16 21:00 11/14/16 08:59 10/28/16 12:55 550 MG Insulin Glargine (Lantus Solostar Pen) 15 units PM SC 10/20/16 21:00 11/19/16 20:59 10/27/16 20:39 15 UNITS Topiramate (Topamax Tab) 50 mg BID PO 10/20/16 21:00 11/19/16 20:59 10/28/16 12:54 50 MG Levetiracetam (Keppra) 2,000 mg BID PO 10/23/16 10:00 11/22/16 09:59 10/28/16 13:18 2,000 MG Lactulose (Chronulac Syrup) 20 gm TID PO 10/23/16 21:00 11/14/16 08:59 10/28/16 14:11 20 GM Clindamycin HCl (Cleocin Cap) 150 mg Q6 PO 10/24/16 18:00 11/03/16 17:59 10/28/16 12:56 150 MG Ketorolac Tromethamine (Toradol Tab) 10 mg Q8H PRN PO 10/24/16 17:15 10/29/16 17:14 10/28/16 07:36 10 MG Oxycodone HCl (Roxicodone Immediate Rel Tab) 5 mg Q5H PRN PO 10/25/16 16:15 11/08/16 16:14 10/27/16 23:43 5 MG Lacosamide (Vimpat Tab) 100 mg BID PO 10/25/16 21:00 11/24/16 20:59 10/28/16 12:55 100 MG Hydromorphone HCl (Dilaudid Inj) 1 mg Q6H PRN IV 10/27/16 00:30 11/10/16 00:29 10/28/16 14:17 1 MG Insulin Aspart (novoLOG ASPART) SLIDING SCALE G... Q6 SC 10/28/16 06:00 11/27/16 05:59 10/28/16 13:08 6 UNITS (Elisa Deleon, MACO) Objective Vital Signs Date Time Temp Pulse Resp B/P (MAP) Pulse Ox O2 Delivery O2 Flow Rate FiO2 10/28/16 14:00 92 17 101/64 (76) 96 Room Air 10/28/16 13:42 95 Mask 2.0 10/28/16 13:12 96 18 109/71 (84) 94 Room Air 10/28/16 12:40 37.2 94 16 93/55 (68) 96 Oxymask 2.0 10/28/16 12:00 Oxymask 2.0 95 10/28/16 12:00 37.2 90 16 113/68 (83) 95 Oxymask 2.0 10/28/16 11:46 99/48 10/28/16 11:44 88 18 10/28/16 11:44 88 18 98 10/28/16 11:41 93/50 10/28/16 11:39 86 19 99 10/28/16 11:39 86 19 10/28/16 11:36 103/53 10/28/16 11:34 87 19 10/28/16 11:34 88 19 99 10/28/16 11:31 116/55 10/28/16 11:29 88 19 97 10/28/16 11:29 89 19 10/28/16 11:26 115/70 10/28/16 11:24 89 20 10/28/16 11:24 89 20 99 10/28/16 11:21 89/58 10/28/16 11:20 37.4 85 20 115/70 99 Mask 2 10/28/16 11:19 86 19 10/28/16 11:19 86 19 99 10/28/16 11:16 104/53 10/28/16 11:14 87 18 10/28/16 11:14 87 18 99 10/28/16 11:11 103/54 10/28/16 11:09 85 19 100 10/28/16 11:09 86 19 10/28/16 11:08 87 19 10/28/16 11:08 87 19 100 10/28/16 11:06 100/52 10/28/16 11:03 90 18 99 10/28/16 11:03 90 18 10/28/16 11:01 105/52 10/28/16 10:58 93 21 10/28/16 10:58 93 21 100 10/28/16 10:56 112/59 10/28/16 10:53 95 27 100 10/28/16 10:53 95 27 10/28/16 10:51 105/58 10/28/16 10:48 95 25 10/28/16 10:48 96 25 99 10/28/16 10:44 102/49 10/28/16 10:43 37.7 96 18 102/49 100 Mask 10 10/28/16 07:30 Nasal Cannula 2.0 10/28/16 07:08 37.8 102 19 118/72 (87) 100 Room Air 10/28/16 03:25 36.6 93 16 110/69 (83) 100 Nasal Cannula 2.0 10/27/16 23:38 Nasal Cannula 2.0 10/27/16 23:05 37.4 89 18 126/67 (86) 98 Nasal Cannula 2.0 10/27/16 19:43 36.7 90 18 110/65 (80) 100 Room Air 10/27/16 16:32 37.7 93 16 116/58 (77) 100 Nasal Cannula 2.0 10/27/16 15:45 Nasal Cannula 2.0 10/27/16 15:28 36.7 97 18 112/61 (78) 100 Nasal Cannula 2.0 (Elisa Deleon PA-C) Physical Exam General Appearance: WD/WN, no apparent distress Eyes: PERRL, sclerae normal (minimal redness in L eye), + pertinent finding ( significant ecchymosis and edema of L eye; ecchymosis extends to L neck) ENT: hearing grossly normal Neck: supple, no JVD, trachea midline Respiratory/Chest: lungs clear, normal breath sounds, no respiratory distress, no accessory muscle use Cardiovascular: regular rate, rhythm, no gallop, no murmur Abdomen: normal bowel sounds, non tender, soft Neurologic/Psychiatric: alert, oriented x 3 (Elisa Deleon, AMARILISC) Laboratory Results Last 24 Hours Test 10/27/16 17:02 10/27/16 20:31 10/28/16 06:01 10/28/16 08:59 Bedside Glucose 139 mg/dl 207 mg/dl 151 mg/dl White Blood Count 4.77 K/uL Red Blood Count 2.70 M/uL Hemoglobin 9.2 g/dL Hematocrit 27.1 % Mean Corpuscular Volume 100.4 fL Mean Corpuscular Hemoglobin 34.1 pg Mean Corpuscular Hemoglobin Concent 33.9 g/dl Platelet Count 90 K/uL Mean Platelet Volume 9.3 fL Neutrophils (%) (Auto) 65.6 % Lymphocytes (%) (Auto) 18.9 % Monocytes (%) (Auto) 12.4 % Eosinophils (%) (Auto) 2.7 % Basophils (%) (Auto) 0.4 % Neutrophils # (Auto) 3.13 K/uL Lymphocytes # (Auto) 0.90 K/uL Monocytes # (Auto) 0.59 K/uL Eosinophils # (Auto) 0.13 K/uL Basophils # (Auto) 0.02 K/uL RDW Standard Deviation 66.9 fL RDW Coefficient of Variation 18.9 % Immature Granulocyte % (Auto) 0.0 % Immature Granulocyte # (Auto) 0.00 K/uL Sodium Level 139 mmol/L Potassium Level 4.2 mmol/L Chloride Level 110 mmol/L Carbon Dioxide Level 23 mmol/L Anion Gap 6.0 mmol/L Blood Urea Nitrogen 17 mg/dl Creatinine 0.86 mg/dl Est Creatinine Clear Calc Drug Dose 96.6 ml/min Estimated GFR () 91.3 Estimated GFR (Non- 78.8 BUN/Creatinine Ratio 20.2 Random Glucose 161 mg/dl Calcium Level 7.0 mg/dl Test 10/28/16 11:35 Bedside Glucose 162 mg/dl (Elisa Deleon PA-C) Assessment and Plan 50yo female with 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 Had worsened encephalopathy likely associated with medication changes specifically anti epileptics, suffered a fall when left unattended by and fractured right nasal bones and left humerus, for repair of both L Humerus Fx S/P ORIF (10/27) and Nasal Bone Fx S/P Closed Reduction (10/28): - ON 10/24 patient was discharged but was left alone when went to visit another patient and she sustained an unwitness fall with facial contusions and R hand pain - Clindamycin 150 mg Q6H for mucosal breach - Diluadid Q6H PRN and Roxicodone 5 mg PRN Hepatic Encephalopathy: IMPROVED - Suspect worsening from increased Trileptal - will need followed as outpatient with neurology - Lactulose 20 mg TID - recommend 2-3 BMs/day - Xifaxan 550 mg BID Pancytopenia 2/ STEVE: Continue to monitor Seizure D/O: - Vimpat 100 mg BID, Keppra 2 g BID, and Trileptal 600 mg BID - Follows with Neurology - plan for Keppra, Vimpat, and Trileptal - EEG in September with seizures noted RUL Pneumonia: - Treated but now on clinda for nasal fracture - Given RUL did have ID see and Quanterferon Gold sent with negative results Diabetes Mellitus: - Lantus 15 units SC daily and SSI DVT Prophylaxis: MIRYAM/SCDs; withhold chemical prophylaxis given thrombocytopenia Code Status: FULL RESUSCITATION Disposition: [facility] - likely 1-2 days Discharge planning: [facility] facility (Elisa Deleon PA-C) Reviewed: Pt Seen/Exam by Me (Mary Ann Rivera MD) History Physician Commercial Administrator Supervision Note: I interviewed and examined the patient. Discussed with GHULAM Deleon and agree with findings and plan as documented in the note. Any exceptions or clarifications are listed here: Pt here with prolonged stay and multiple medical issues, frequent hospitalizations for hepatic encephalopathy, who was ready for dc to home and then sustained a fall resulting in fracture of her left prox humerus and nasal bone. Now s/p left humerus ORIF and closed reduction nasal bone. Having some low grade temps today-higher temp this afternoon was with heated blankets on and RN removed blankets, recheck Temp now only 100.7. Pt denies cough or sputum production, no CP, no leg pain, just had Isaac removed and voided 100 mL of blood-tinged urine as per RN Vitals reviewed AAOx3, NAD HEENT: large amount of ecchymosis and edema left periorbital region, dressing in place over nose RRR no mgr CTAB no wcr Abd +BS sof t NT ND Ext LUE in sling with dressing in place, no calf tenderness or leg edema 50 yo female with STEVE-associated cirrhosis, h/o hepatic encephalopathy, seizure disorder, here with hepatic encephalopathy now resolved, followed by fall with fractures of left humerus and nasal bone. Low grade temps not overly concerning. If spikes high again, will get BCxs given port site accessed, and check UA, repeat CXR again. Was treated for PNA with Aztreonam this admission and currently on clinda for prophylaxis for sinusitis given nasal fracture. -continue all other meds, needs to have a BM to prevent recurrent HE DVT Proph-apparently is refusing heparin SQ, has SCDs Documented By: Mary Ann Rivera (Mary Ann Rivera MD)
[2016-10-28] MEDS ORDERED: NURSING VERBAL MED ORDER ONE (15:15)
[2016-10-28] MEDS: INSULIN GLARGINE SOLOSTAR 100 UNITS/ML 3 ML PEN SC SCH (22:01)
[2016-10-28] MEDS: OXYCODONE HCL IR 5 MG TAB (IMMEDIATE RELEASE) PO PRN (22:22)
[2016-10-29] MEDS: CLINDAMYCIN HCL 150 MG CAP PO SCH ×4 (00:25→18:54)
[2016-10-29 03:35] VITALS: BP 105/63; PULSE 82; TEMP 37; O2SAT 100
[2016-10-29 05:26] LABS: HEMATOCRIT 21.3 % (37-47); MEAN CELL VOLUME 101.4 fL (80-100); MEAN CORPUSCULAR HEMOGLOBIN 34.8 pg (25-34); MEAN CORPUSCULAR HGB CONC 34.3 g/dl (32-36); WHITE BLOOD COUNT 2.57 K/uL (4.8-10.8)
[2016-10-29 05:35] LABS: MEAN PLATELET VOLUME 9.9 fL (7.4-10.4); PLATELET COUNT 66 K/uL (130-400)
[2016-10-29 05:54] LABS: BUN/CREATININE RATIO 30.6 (10-20); CREATININE 0.68 mg/dl (0.60-1.20); POTASSIUM 3.9 mmol/L (3.5-5.1)
[2016-10-29 08:00] VITALS: BP 110/58; PULSE 78; TEMP 37; O2SAT 100
[2016-10-29] MEDS: BUDESONIDE/FORMOTEROL FUMARATE 160/4.5 60 PUFFS/INHALER INH SCH ×2 (08:32→20:57)
[2016-10-29] MEDS: INSULIN ASPART 100 UNITS/ML 3 ML PEN SC SCH ×4 (08:36→21:13)
[2016-10-29] MEDS: LACTULOSE SYRUP 20 GM/30 ML UDC PO SCH ×3 (08:37→20:58)
[2016-10-29] MEDS: PANTOprazole SOD 40 MG TAB PO SCH (08:39)
[2016-10-29] MEDS: LEVETIRACETAM 1000 MG PO SCH ×2 (08:39→20:58)
[2016-10-29] MEDS: POTASSIUM CHLORIDE 20 MEQ TABCR PO SCH (08:39)
[2016-10-29] MEDS: TOPIRAMATE 50 MG TAB PO SCH ×2 (08:40→21:02)
[2016-10-29] MEDS: LACOSAMIDE 50 MG TAB PO SCH ×2 (08:41→21:02)
[2016-10-29] MEDS: OXCARBAZEPINE 300 MG TAB PO SCH ×2 (08:41→21:03)
[2016-10-29] MEDS: RANITIDINE HCL 150 MG TAB PO SCH ×2 (08:42→21:01)
[2016-10-29] MEDS: RIFAXIMIN TAB 550 MG TAB PO SCH ×2 (08:42→21:02)
--- NOTE | 2016-10-29 08:43 | Anesthesiology Progress Note ---
Anesthesia Post Op Note Date & Time Oct 29, 2016 at 08:42 Vital Signs Pain Intensity: 0.0 Vital Signs Past 12 Hours Date Time Temp Pulse Resp B/P (MAP) Pulse Ox O2 Delivery O2 Flow Rate FiO2 10/29/16 03:35 37.0 82 16 105/63 (77) 100 Nasal Cannula 2.0 10/29/16 00:15 Nasal Cannula 2.0 10/28/16 23:15 36.8 82 15 101/61 (74) 100 Nasal Cannula 2.0 Notes Mental Status: alert / awake / arousable, participated in evaluation Pt Amnestic to Procedure: Yes Nausea / Vomiting: adequately controlled Pain: adequately controlled Airway Patency, RR, SpO2: stable & adequate BP & HR: stable & adequate Hydration State: stable & adequate Anesthetic Complications: no major complications apparent
--- NOTE | 2016-10-29 10:21 | Orthopedic Progress Note ---
Orthopedic Progress Note Date of Service Oct 29, 2016. Subjective Post OP Day: 2 Additional Notes: Pt sleeping upon arrival into room. Somewhat easily awoken. Answering questions appropriately but appears somnolent. States that her pain in the left shoulder is controlled. Objective Dressings with some noted drainage just under the tape but nothing draining through. Ecchymosis noted on arm. Moving fingers well. Date Time Temp Pulse Resp B/P (MAP) Pulse Ox O2 Delivery O2 Flow Rate FiO2 10/29/16 08:00 37.0 78 18 110/58 (75) 100 Room Air 10/29/16 08:00 100 Room Air 10/29/16 03:35 37.0 82 16 105/63 (77) 100 Nasal Cannula 2.0 10/29/16 00:15 Nasal Cannula 2.0 10/28/16 23:15 36.8 82 15 101/61 (74) 100 Nasal Cannula 2.0 10/28/16 19:13 37.1 94 20 120/73 (89) 100 Nasal Cannula 2.0 10/28/16 18:01 37.4 10/28/16 16:45 Nasal Cannula 2.0 10/28/16 15:01 38.7 96 20 91/54 (66) 97 Nasal Cannula 2.0 10/28/16 14:00 92 17 101/64 (76) 96 Room Air 10/28/16 13:42 95 Mask 2.0 10/28/16 13:12 96 18 109/71 (84) 94 Room Air 10/28/16 12:40 37.2 94 16 93/55 (68) 96 Oxymask 2.0 10/28/16 12:00 Oxymask 2.0 95 10/28/16 12:00 37.2 90 16 113/68 (83) 95 Oxymask 2.0 10/28/16 11:46 99/48 10/28/16 11:44 88 18 10/28/16 11:44 88 18 98 10/28/16 11:41 93/50 10/28/16 11:39 86 19 99 10/28/16 11:39 86 19 10/28/16 11:36 103/53 10/28/16 11:34 87 19 10/28/16 11:34 88 19 99 10/28/16 11:31 116/55 10/28/16 11:29 88 19 97 10/28/16 11:29 89 19 10/28/16 11:26 115/70 10/28/16 11:24 89 20 10/28/16 11:24 89 20 99 10/28/16 11:21 89/58 10/28/16 11:20 37.4 85 20 115/70 99 Mask 2 10/28/16 11:19 86 19 10/28/16 11:19 86 19 99 10/28/16 11:16 104/53 10/28/16 11:14 87 18 10/28/16 11:14 87 18 99 10/28/16 11:11 103/54 10/28/16 11:09 85 19 100 10/28/16 11:09 86 19 10/28/16 11:08 87 19 10/28/16 11:08 87 19 100 10/28/16 11:06 100/52 10/28/16 11:03 90 18 99 10/28/16 11:03 90 18 10/28/16 11:01 105/52 10/28/16 10:58 93 21 10/28/16 10:58 93 21 100 10/28/16 10:56 112/59 10/28/16 10:53 95 27 100 10/28/16 10:53 95 27 10/28/16 10:51 105/58 10/28/16 10:48 95 25 10/28/16 10:48 96 25 99 10/28/16 10:44 102/49 10/28/16 10:43 37.7 96 18 102/49 100 Mask 10 Laboratory Results 24 Hours: Test 10/29/16 05:04 Hematocrit 21.3 % Hemoglobin 7.3 g/dL Assessment & Plan Assessment: POD#2 sp ORIF left humerus Acute blood loss anemia- Hgb 7.3 today. Plan: closed reduction nose yesterday Pain controlled with Dilaudid and Shelbi. Plan for dressing change today. GLORIAB LUE. Rocha for support. PT as able Inhouse Planning Pain Management: Toradol, Dilaudid, Oxy IR Discharge Planning Discharge Planning: uncertain
[2016-10-29 11:16] LABS: HEMATOCRIT 22.6 % (37-47); MEAN CELL VOLUME 100.4 fL (80-100); MEAN CORPUSCULAR HEMOGLOBIN 35.1 pg (25-34); RED BLOOD COUNT 2.25 M/uL (4.2-5.4); WHITE BLOOD COUNT 3.09 K/uL (4.8-10.8)
[2016-10-29 11:18] LABS: MEAN PLATELET VOLUME 9.2 fL (7.4-10.4); PLATELET COUNT 77 K/uL (130-400)
--- NOTE | 2016-10-29 14:51 | Hospitalist Progress Note ---
Hospitalist Progress Note Date of Service Oct 29, 2016. (Elisa Deleon PA-C) Subjective Pt evaluation today including: conversation w/ patient, physical exam, chart review, lab review, review of studies, review of inpatient medication list Patient seen and evaluated. More lethargic today. Refused Lactulose last night but took today and has had multiple BMs. Did D/C opiates due to mental status. Was able to easily awaken her this AM and follows commands and is oriented but easily falls back asleep. Mentation seemed to wax and wane throughout the morning. Ammonia at 67. Requiring max assistance for ambulation. Reported pain in her face and arm but was not able to contribute much more than this. Discussed with [facility]. Patient re-visited today at approx 1545 as was at bedside and wanted to update on plan. Patient was resting comfortably but noted to have an episode of emesis after lunch. Per RETORT KILN BURNER, patient ate a chicken sandwich and some of her tomato soup. She was cleaned up and laid flat. After in the room a few minutes she began to vomit again. Emesis was red/orange consistent with tomato soup which was appears to be pieces of chicken. No bright red blood or coffee-ground emesis. Patient's HOB was elevated and head turned to the side. She is lethargic but kept was able to converse appropriately. Reporting nausea and shoulder pain but no abdominal pain. Verbalizes no other complaints at this time. Vitals reviewed and have remained stable. Will obtain a stat CBC as patient's hgb has been stable but low. Left a message for GI to update and see any recommendations from their standpoint. Will continue to monitor. Additional Comments: Limited ROS due to AMS. Verbalized pain in face and L arm. (Elisa Deleon, AMARILISC) Medications Current Inpatient Medications Medications (Trade) Dose Ordered Sig/Danita Route Start Time Stop Time Status Last Admin Dose Admin Ondansetron HCl (Zofran Inj) 4 mg Q6H PRN IV 10/14/16 18:30 11/13/16 18:29 10/25/16 04:32 4 MG Budesonide/ Formoterol Fumarate (Symbicort 160/ 4.5 Inh) 2 puffs BID INH 10/14/16 21:00 11/13/16 20:59 10/25/16 21:40 2 PUFFS Albuterol/ Ipratropium (Duoneb) 3 ml QIDR PRN INH 10/14/16 18:30 11/13/16 18:29 Glucose (Glucose 40% Gel) 15-30 GRAMS 15 GRAMS... UD PRN PO 10/14/16 19:15 11/13/16 19:14 Glucose (Glucose Chew Tab) 4-8 Tablets 4 Tabl... UD PRN PO 10/14/16 19:15 11/13/16 19:14 Dextrose (Dextrose 50% 50ML Syringe) 25-50ML OF 50% DW IV FOR... UD PRN IV 10/14/16 19:15 11/13/16 19:14 Glucagon (Glucagon Inj) 1 mg UD PRN SQ 10/14/16 19:15 11/13/16 19:14 Heparin Sodium (Porcine) (Heparin 100 Unit/ml 5ml Flush) 5 ml PRN PRN IV 10/15/16 02:45 11/14/16 02:44 10/29/16 11:01 5 ML Albuterol (Ventolin Hfa Inhaler) 2 puffs Q4H PRN INH 10/15/16 08:00 11/14/16 07:59 Epinephrine (Epipen) 0.3 mg UD PRN IM 10/15/16 08:00 11/14/16 07:59 Ranitidine HCl (zANTac TAB) 150 mg BID PO 10/15/16 09:00 11/14/16 08:59 10/29/16 08:42 150 MG Pantoprazole Sodium (Protonix Tab) 40 mg QAM PO 10/15/16 09:00 11/14/16 08:59 10/29/16 08:39 40 MG Potassium Chloride (Klor-Con Tab) 20 meq QAM PO 10/17/16 09:00 11/14/16 08:59 10/29/16 08:39 20 MEQ Oxcarbazepine (Trileptal) 600 mg BID PO 10/18/16 21:00 11/16/16 08:59 10/29/16 08:41 600 MG Rifaximin (Xifaxan Tab) 550 mg BID PO 10/20/16 21:00 11/14/16 08:59 10/29/16 08:42 550 MG Insulin Glargine (Lantus Solostar Pen) 15 units PM SC 10/20/16 21:00 11/19/16 20:59 10/28/16 22:01 15 UNITS Topiramate (Topamax Tab) 50 mg BID PO 10/20/16 21:00 11/19/16 20:59 10/29/16 08:40 50 MG Levetiracetam (Keppra) 2,000 mg BID PO 10/23/16 10:00 11/22/16 09:59 10/29/16 08:39 2,000 MG Lactulose (Chronulac Syrup) 20 gm TID PO 10/23/16 21:00 11/14/16 08:59 10/29/16 14:19 20 GM Clindamycin HCl (Cleocin Cap) 150 mg Q6 PO 10/24/16 18:00 11/03/16 17:59 10/29/16 12:02 150 MG Ketorolac Tromethamine (Toradol Tab) 10 mg Q8H PRN PO 10/24/16 17:15 10/29/16 17:14 10/28/16 18:25 10 MG Oxycodone HCl (Roxicodone Immediate Rel Tab) 5 mg Q5H PRN PO 10/25/16 16:15 11/08/16 16:14 Future Hold 10/28/16 22:22 5 MG Lacosamide (Vimpat Tab) 100 mg BID PO 10/25/16 21:00 11/24/16 20:59 10/29/16 08:41 100 MG Insulin Aspart (novoLOG ASPART) SLIDING SCALE G... ACHS WI 10/28/16 17:15 11/27/16 05:59 10/29/16 13:15 2 UNITS (Elisa Deleon PA-C) Objective Vital Signs Date Time Temp Pulse Resp B/P (MAP) Pulse Ox O2 Delivery O2 Flow Rate FiO2 10/29/16 08:00 37.0 78 18 110/58 (75) 100 Room Air 10/29/16 08:00 100 Room Air 10/29/16 07:50 Room Air 99 10/29/16 03:35 37.0 82 16 105/63 (77) 100 Nasal Cannula 2.0 10/29/16 00:15 Nasal Cannula 2.0 10/28/16 23:15 36.8 82 15 101/61 (74) 100 Nasal Cannula 2.0 10/28/16 19:13 37.1 94 20 120/73 (89) 100 Nasal Cannula 2.0 10/28/16 18:01 37.4 10/28/16 16:45 Nasal Cannula 2.0 10/28/16 15:01 38.7 96 20 91/54 (66) 97 Nasal Cannula 2.0 (Elisa Deleon PA-C) Physical Exam General Appearance: no apparent distress, + obese Eyes: + pertinent finding (ecchymosis and edema of L face - improving) ENT: hearing grossly normal Neck: supple, no JVD, trachea midline Respiratory/Chest: lungs clear, no respiratory distress, no accessory muscle use, + pertinent finding (limited participation in exam - snoring) Cardiovascular: regular rate, rhythm, no gallop, no murmur Abdomen: normal bowel sounds, non tender, soft (no grimacing or withdrawal from palpation) Neurologic/Psychiatric: + disoriented (lethargic - was able to wake up to name and answer simple questions but falls asleep easily) Skin: normal color, warm/dry (Elisa Deleon, PA-C) Laboratory Results Last 24 Hours Test 10/28/16 17:16 10/28/16 20:30 10/29/16 05:04 10/29/16 08:01 Bedside Glucose 177 mg/dl 231 mg/dl 175 mg/dl White Blood Count 2.57 K/uL Red Blood Count 2.10 M/uL Hemoglobin 7.3 g/dL Hematocrit 21.3 % Mean Corpuscular Volume 101.4 fL Mean Corpuscular Hemoglobin 34.8 pg Mean Corpuscular Hemoglobin Concent 34.3 g/dl RDW Standard Deviation 66.2 fL RDW Coefficient of Variation 18.3 % Platelet Count 66 K/uL Mean Platelet Volume 9.9 fL Sodium Level 141 mmol/L Potassium Level 3.9 mmol/L Chloride Level 112 mmol/L Carbon Dioxide Level 23 mmol/L Anion Gap 6.0 mmol/L Blood Urea Nitrogen 21 mg/dl Creatinine 0.68 mg/dl Est Creatinine Clear Calc Drug Dose 122.2 ml/min Estimated GFR () 118.2 Estimated GFR (Non- 102.0 BUN/Creatinine Ratio 30.6 Random Glucose 213 mg/dl Calcium Level 7.0 mg/dl Total Bilirubin 1.4 mg/dl Aspartate Amino Transf (AST/SGOT) 43 U/L Alanine Aminotransferase (ALT/SGPT) 33 U/L Alkaline Phosphatase 115 U/L Total Protein 4.1 gm/dl Albumin 2.0 gm/dl Globulin 2.1 gm/dl Albumin/Globulin Ratio 1.0 Test 10/29/16 10:50 10/29/16 11:53 10/29/16 11:54 White Blood Count 3.09 K/uL Red Blood Count 2.25 M/uL Hemoglobin 7.9 g/dL Hematocrit 22.6 % Mean Corpuscular Volume 100.4 fL Mean Corpuscular Hemoglobin 35.1 pg Mean Corpuscular Hemoglobin Concent 35.0 g/dl RDW Standard Deviation 65.1 fL RDW Coefficient of Variation 18.1 % Platelet Count 77 K/uL Mean Platelet Volume 9.2 fL Ammonia 67.0 umol/L Bedside Glucose 133 mg/dl (Elisa Deleon, PA-C) Assessment and Plan 50yo female with 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 Had worsened encephalopathy likely associated with medication changes specifically anti epileptics, suffered a fall when left unattended by and fractured right nasal bones and left humerus, for repair of both L Humerus Fx S/P ORIF (10/27) and Nasal Bone Fx S/P Closed Reduction (10/28): STABLE - On 10/24 patient was discharged but was left alone when went to visit another patient and she sustained an unwitnessed fall with facial contusions and R hand pain - Clindamycin 150 mg Q6H for mucosal breach - Opiates have been D/C'd due to change in mental status - Toradol PRN Hepatic Encephalopathy: WAX AND WANES - Noted to be more lethargic - wanted to speak with case management and stated she was thankful for cookies with meals last night - drowsy but awakens and answers questions appropriately but quickly falls asleep; She is max assist at this point. - Suspect worsening from increased Trileptal - will need followed as outpatient with neurology - Lactulose 20 mg TID - recommend 2-3 BMs/day - Xifaxan 550 mg BID Pancytopenia 2/2 STEVE: Continue to monitor - Hgb 7.3 with repeat at 7.9 - will not transfuse at this time but will monitor Seizure D/O: - Vimpat 100 mg BID, Keppra 2 g BID, and Trileptal 600 mg BID - Follows with Neurology - plan for Keppra, Vimpat, and Trileptal - EEG in September with seizures noted RUL Pneumonia: - Treated but now on clinda for nasal fracture - Given RUL did have ID see and Quanterferon Gold sent with negative results Diabetes Mellitus: - Lantus 15 units SC daily and SSI DVT Prophylaxis: MIRYAM/SCDs; withhold chemical prophylaxis given thrombocytopenia Code Status: FULL RESUSCITATION Disposition: [facility] - will await mentation improvement -- Given psychiatric history she will be a target - OOA in to see patient and behavioral health obtained records from [place] Continued [facility] stay due to: multiple IV medications needed Discharge planning: [facility] facility (Elisa Deleon, MACO) Reviewed: Pt Seen/Exam by Me (Mary Ann Rivera MD) History Physician [employer] Officer Supervision Note: I interviewed and examined the patient. Discussed with GHULAM Deleon and agree with findings and plan as documented in the note. Any exceptions or clarifications are listed here: Pt here with prolonged stay and multiple medical issues, frequent hospitalizations for hepatic encephalopathy, who was ready for dc to home and then sustained a fall resulting in fracture of her left prox humerus and nasal bone. Now s/p left humerus ORIF and closed reduction nasal bone. Had decrease in mental status today likely related to taking opioids for pain last night. Vitals reviewed AAOx3, NAD HEENT: large amount of ecchymosis and edema left periorbital region, dressing in place over nose RRR no mgr CTAB no wcr Abd +BS sof t NT ND Ext LUE in sling with dressing in place, no calf tenderness or leg edema 50 yo female with STEVE-associated cirrhosis, h/o hepatic encephalopathy, seizure disorder, here with hepatic encephalopathy now resolved, followed by fall with fractures of left humerus and nasal bone. -anemic from some blood loss on top of chronic anemia of chronic disease, follow and transfuse as needed -antiemetics -ABSOLUTE avoidance of all opioids or KIER DRIER depressant meds -hopeful for dc soon -given recent N/V, will reconsult GI to see about any further recommendations -check UA/Ur cx for UTI DVT Proph- SCDs Documented By: Mary Ann Rivera (Mary Ann Rivera MD)
[2016-10-29 15:15] VITALS: BP 139/89; PULSE 99; TEMP 37; O2SAT 97
[2016-10-29] MEDS: ONDANSETRON INJ 2 MG/ML 2 ML VIAL IV PRN (16:24)
[2016-10-29 16:47] LABS: HEMATOCRIT 23.7 % (37-47); RED BLOOD COUNT 2.37 M/uL (4.2-5.4); WHITE BLOOD COUNT 2.69 K/uL (4.8-10.8)
[2016-10-29 17:02] LABS: MEAN PLATELET VOLUME 9.7 fL (7.4-10.4); PLATELET COUNT 75 K/uL (130-400)
[2016-10-29 17:12] LABS: ALB/GLOB RATIO 0.9 (0.9-2); BUN/CREATININE RATIO 23.2 (10-20); CALCIUM 7.3 mg/dl (8.5-10.1); CREATININE 0.55 mg/dl (0.60-1.20); POTASSIUM 4.1 mmol/L (3.5-5.1)
[2016-10-29 19:56] VITALS: BP 113/71; PULSE 94; TEMP 37.2; O2SAT 98
--- NOTE | 2016-10-29 20:29 | Orthopedic Progress Note ---
Orthopedic Progress Note Date of Service Oct 29, 2016. Subjective Reports: feeling well, Denies: complaints, chest pain, SOB, nausea / vomiting, light headedness Additional Notes: Pain well controlled L UE. Awake and alert. Objective calves soft nontender, N/V intact, capillary refill less than 2 sec., incision C /D/I, A&O x3 Mu intact. No drainage L UE. Fingers moving and sensate. R/U/M/A intact for sensory and motor. Radial pulse 2/4 B UE. Date Time Temp Pulse Resp B/P (MAP) Pulse Ox O2 Delivery O2 Flow Rate FiO2 10/29/16 19:56 37.2 94 18 113/71 (85) 98 Room Air 10/29/16 15:55 Room Air 10/29/16 15:15 37.0 99 18 139/89 (106) 97 Room Air 10/29/16 08:00 37.0 78 18 110/58 (75) 100 Room Air 10/29/16 08:00 100 Room Air 10/29/16 07:50 Room Air 99 10/29/16 03:35 37.0 82 16 105/63 (77) 100 Nasal Cannula 2.0 10/29/16 00:15 Nasal Cannula 2.0 10/28/16 23:15 36.8 82 15 101/61 (74) 100 Nasal Cannula 2.0 Laboratory Results 24 Hours: Test 10/29/16 05:04 10/29/16 10:50 10/29/16 16:36 Hematocrit 21.3 % 22.6 % 23.7 % Hemoglobin 7.3 g/dL 7.9 g/dL 8.3 g/dL Assessment & Plan Assessment: POD#2 sp ORIF left proximal humerus fracture Acute blood loss anemia- Hgb improved to 8.3 today. Plan: closed reduction nose yesterday Pain controlled with Dilaudid and Shelbi. LESLEY Rocha for support. PT as able Will see in office 2 weeks post op Inhouse Planning Pain Management: Toradol, Dilaudid, Oxy IR Discharge Planning Discharge Planning: uncertain
[2016-10-29] MEDS: INSULIN GLARGINE SOLOSTAR 100 UNITS/ML 3 ML PEN SC SCH (21:11)
[2016-10-29 21:44] LABS: URINE APPEARANCE CLEAR (CLEAR); URINE BILIRUBIN NEG (NEG); URINE COLOR ORANGE; URINE EPITHELIAL CELL AUTO 20-30 /lpf (0-5); URINE NITRITE NEG (NEG); URINE SPECIFIC GRAVITY 1.024 (1.000-1.030); UROBILINOGEN NEG (NEG)
[2016-10-29 21:51] LABS: MANUAL MICROSCOPIC REQUIRED? NO; REVIEW REQ? YES
[2016-10-29 22:56] VITALS: BP 135/68; PULSE 82; TEMP 36.6; O2SAT 97
[2016-10-30] MEDS: CLINDAMYCIN HCL 150 MG CAP PO SCH ×5 (00:24→23:27)
[2016-10-30] MEDS: TOPIRAMATE 50 MG TAB PO SCH ×2 (04:59→20:06)
[2016-10-30 05:51] LABS: HEMATOCRIT 22.4 % (37-47); MEAN CELL VOLUME 101.4 fL (80-100); MEAN CORPUSCULAR HEMOGLOBIN 36.7 pg (25-34); MEAN CORPUSCULAR HGB CONC 36.2 g/dl (32-36); RED BLOOD COUNT 2.21 M/uL (4.2-5.4); WHITE BLOOD COUNT 3.07 K/uL (4.8-10.8)
[2016-10-30 05:55] LABS: MEAN PLATELET VOLUME 10.1 fL (7.4-10.4); PLATELET COUNT 88 K/uL (130-400)
[2016-10-30 06:27] LABS: BUN/CREATININE RATIO 16.4 (10-20); CALCIUM 7.3 mg/dl (8.5-10.1); CREATININE 0.56 mg/dl (0.60-1.20); POTASSIUM 3.5 mmol/L (3.5-5.1)
[2016-10-30 06:30] LABS: ALB/GLOB RATIO 0.9 (0.9-2)
[2016-10-30 08:00] VITALS: BP 124/70; PULSE 70; TEMP 36.8; O2SAT 98
[2016-10-30] MEDS: BUDESONIDE/FORMOTEROL FUMARATE 160/4.5 60 PUFFS/INHALER INH SCH ×2 (09:00→21:00)
[2016-10-30] MEDS: LACTULOSE SYRUP 20 GM/30 ML UDC PO SCH ×3 (09:19→21:13)
[2016-10-30] MEDS: RANITIDINE HCL 150 MG TAB PO SCH ×2 (09:20→21:13)
[2016-10-30] MEDS: PANTOprazole SOD 40 MG TAB PO SCH (09:20)
[2016-10-30] MEDS: LACOSAMIDE 50 MG TAB PO SCH ×2 (09:21→21:12)
[2016-10-30] MEDS: POTASSIUM CHLORIDE 20 MEQ TABCR PO SCH (09:21)
[2016-10-30] MEDS: RIFAXIMIN TAB 550 MG TAB PO SCH ×2 (09:22→21:13)
[2016-10-30] MEDS: OXCARBAZEPINE 300 MG TAB PO SCH ×2 (09:23→21:14)
[2016-10-30] MEDS: LEVETIRACETAM 1000 MG PO SCH ×2 (09:25→21:14)
[2016-10-30] MEDS: ACETAMINOPHEN 325 MG TAB PO PRN ×2 (09:33→16:20)
--- NOTE | 2016-10-30 09:34 | Gastroenterology Progress Note ---
Progress Note Date of Service: Oct 30, 2016 Subjective Pt evaluation today including: conversation w/ patient, physical exam, chart review Pt was seen and evaluated. Chart reviewed. GI was following for hepatic encephalopathy but had signed off. Reconsulted for gastroparesis. Pt tells me last night she had some english toast and had nausea and bouts of emesis after. Her diet was dropped down to clear liquids, and now her nausea, abdominal pain and emesis has resolved. She is not a candidate for reglan general practitioner her seizure disorder. She had tried domperidone as an outpatient in the past. She does not follow a gastroparesis diet. She tells me her pain has been increased overnight as they had d/c her narcotics. She is mentating well this AM. Review of Systems Constitutional: No fever, No chills Respiratory: No cough Cardiac: No chest pain Abdomen: No pain, No nausea, No vomiting, No diarrhea, No constipation Musculoskeletal: + joint pain Medications Current Inpatient Medications Medications (Trade) Dose Ordered Sig/Danita Route Start Time Stop Time Status Last Admin Dose Admin Ondansetron HCl (Zofran Inj) 4 mg Q6H PRN IV 10/14/16 18:30 11/13/16 18:29 10/29/16 16:24 4 MG Budesonide/ Formoterol Fumarate (Symbicort 160/ 4.5 Inh) 2 puffs BID INH 10/14/16 21:00 11/13/16 20:59 10/25/16 21:40 2 PUFFS Albuterol/ Ipratropium (Duoneb) 3 ml QIDR PRN INH 10/14/16 18:30 11/13/16 18:29 Glucose (Glucose 40% Gel) 15-30 GRAMS 15 GRAMS... UD PRN PO 10/14/16 19:15 11/13/16 19:14 Glucose (Glucose Chew Tab) 4-8 Tablets 4 Tabl... UD PRN PO 10/14/16 19:15 11/13/16 19:14 Dextrose (Dextrose 50% 50ML Syringe) 25-50ML OF 50% DW IV FOR... UD PRN IV 10/14/16 19:15 11/13/16 19:14 Glucagon (Glucagon Inj) 1 mg UD PRN SQ 10/14/16 19:15 11/13/16 19:14 Heparin Sodium (Porcine) (Heparin 100 Unit/ml 5ml Flush) 5 ml PRN PRN IV 10/15/16 02:45 11/14/16 02:44 10/30/16 05:50 5 ML Albuterol (Ventolin Hfa Inhaler) 2 puffs Q4H PRN INH 10/15/16 08:00 11/14/16 07:59 Epinephrine (Epipen) 0.3 mg UD PRN IM 10/15/16 08:00 11/14/16 07:59 Ranitidine HCl (zANTac TAB) 150 mg BID PO 10/15/16 09:00 11/14/16 08:59 10/29/16 21:01 150 MG Pantoprazole Sodium (Protonix Tab) 40 mg QAM PO 10/15/16 09:00 11/14/16 08:59 10/29/16 08:39 40 MG Potassium Chloride (Klor-Con Tab) 20 meq QAM PO 10/17/16 09:00 11/14/16 08:59 10/29/16 08:39 20 MEQ Oxcarbazepine (Trileptal) 600 mg BID PO 10/18/16 21:00 11/16/16 08:59 10/29/16 21:03 600 MG Rifaximin (Xifaxan Tab) 550 mg BID PO 10/20/16 21:00 11/14/16 08:59 10/29/16 21:02 550 MG Insulin Glargine (Lantus Solostar Pen) 15 units PM SC 10/20/16 21:00 11/19/16 20:59 10/29/16 21:11 15 UNITS Topiramate (Topamax Tab) 50 mg BID PO 10/20/16 21:00 11/19/16 20:59 10/30/16 04:59 50 MG Levetiracetam (Keppra) 2,000 mg BID PO 10/23/16 10:00 11/22/16 09:59 10/29/16 20:58 2,000 MG Lactulose (Chronulac Syrup) 20 gm TID PO 10/23/16 21:00 11/14/16 08:59 10/29/16 20:58 20 GM Clindamycin HCl (Cleocin Cap) 150 mg Q6 PO 10/24/16 18:00 8/17 17:59 10/30/16 05:28 150 MG Lacosamide (Vimpat Tab) 100 mg BID PO 10/25/16 21:00 11/24/16 20:59 10/29/16 21:02 100 MG Insulin Aspart (novoLOG ASPART) SLIDING SCALE G... ACHS SC 10/28/16 17:15 11/27/16 05:59 10/29/16 21:13 8 UNITS Acetaminophen (Tylenol Tab) 650 mg Q6H PRN PO 10/30/16 08:45 11/29/16 08:44 Objective Vital Signs Date Time Temp Pulse Resp B/P (MAP) Pulse Ox O2 Delivery O2 Flow Rate FiO2 10/30/16 08:00 36.8 70 18 124/70 (88) 98 Room Air 10/30/16 08:00 98 Room Air 10/30/16 00:35 Room Air 10/29/16 22:56 36.6 82 24 135/68 (90) 97 Room Air 10/29/16 19:56 37.2 94 18 113/71 (85) 98 Room Air 10/29/16 15:55 Room Air 10/29/16 15:15 37.0 99 18 139/89 (106) 97 Room Air Physical Exam General Appearance: no apparent distress (pt is sitting OOB in chair, sling on left arm and dressing on nose. Visible bruising to face and left side of body) Eyes: PERRL ENT: hearing grossly normal Respiratory/Chest: lungs clear Cardiovascular: regular rate, rhythm Abdomen: normal bowel sounds, non tender, soft, no organomegaly Neurologic/Psych: alert, normal mood/affect, oriented x 3 Skin: warm/dry, no rash Laboratory Results Last 24 Hours Test 10/29/16 10:50 10/29/16 11:53 10/29/16 11:54 10/29/16 16:36 White Blood Count 3.09 K/uL 2.69 K/uL Red Blood Count 2.25 M/uL 2.37 M/uL Hemoglobin 7.9 g/dL 8.3 g/dL Hematocrit 22.6 % 23.7 % Mean Corpuscular Volume 100.4 fL 100.0 fL Mean Corpuscular Hemoglobin 35.1 pg 35.0 pg Mean Corpuscular Hemoglobin Concent 35.0 g/dl 35.0 g/dl RDW Standard Deviation 65.1 fL 63.0 fL RDW Coefficient of Variation 18.1 % 17.9 % Platelet Count 77 K/uL 75 K/uL Mean Platelet Volume 9.2 fL 9.7 fL Ammonia 67.0 umol/L Bedside Glucose 133 mg/dl Sodium Level 141 mmol/L Potassium Level 4.1 mmol/L Chloride Level 113 mmol/L Carbon Dioxide Level 24 mmol/L Anion Gap 4.0 mmol/L Blood Urea Nitrogen 13 mg/dl Creatinine 0.55 mg/dl Est Creatinine Clear Calc Drug Dose 151.1 ml/min Estimated GFR () 126.8 Estimated GFR (Non- 109.4 BUN/Creatinine Ratio 23.2 Random Glucose 222 mg/dl Calcium Level 7.3 mg/dl Total Bilirubin 2.1 mg/dl Aspartate Amino Transf (AST/SGOT) 48 U/L Alanine Aminotransferase (ALT/SGPT) 37 U/L Alkaline Phosphatase 109 U/L Total Protein 4.8 gm/dl Albumin 2.3 gm/dl Globulin 2.5 gm/dl Albumin/Globulin Ratio 0.9 Test 10/29/16 17:02 10/29/16 19:50 10/29/16 20:50 10/29/16 20:54 Bedside Glucose 217 mg/dl 371 mg/dl Stool Occult Blood NEGATIVE Urine Color ORANGE Urine Appearance CLEAR Urine pH 6.0 Urine Specific Edelstein 1.024 Urine Protein NEG Urine Glucose (UA) 2+ Urine Ketones NEG Urine Occult Blood TRACE Urine Nitrite NEG Urine Bilirubin NEG Urine Urobilinogen NEG Urine Leukocyte Esterase SMALL Urine WBC (Auto) 1-5 /hpf Urine RBC (Auto) 0-4 /hpf Urine Hyaline Casts (Auto) 1-5 /lpf Urine Epithelial Cells (Auto) 20-30 /lpf Urine Bacteria (Auto) NEG Urine Yeast (Auto) BUDDING Test 10/30/16 05:28 10/30/16 07:47 White Blood Count 3.07 K/uL Red Blood Count 2.21 M/uL Hemoglobin 8.1 g/dL Hematocrit 22.4 % Mean Corpuscular Volume 101.4 fL Mean Corpuscular Hemoglobin 36.7 pg Mean Corpuscular Hemoglobin Concent 36.2 g/dl RDW Standard Deviation 66.3 fL RDW Coefficient of Variation 18.2 % Platelet Count 88 K/uL Mean Platelet Volume 10.1 fL Sodium Level 143 mmol/L Potassium Level 3.5 mmol/L Chloride Level 113 mmol/L Carbon Dioxide Level 22 mmol/L Anion Gap 8.0 mmol/L Blood Urea Nitrogen 9 mg/dl Creatinine 0.56 mg/dl Est Creatinine Clear Calc Drug Dose 148.4 ml/min Estimated GFR () 126.0 Estimated GFR (Non- 108.7 BUN/Creatinine Ratio 16.4 Random Glucose 123 mg/dl Calcium Level 7.3 mg/dl Total Bilirubin 1.8 mg/dl Aspartate Amino Transf (AST/SGOT) 44 U/L Alanine Aminotransferase (ALT/SGPT) 35 U/L Alkaline Phosphatase 91 U/L Total Protein 4.6 gm/dl Albumin 2.2 gm/dl Globulin 2.4 gm/dl Albumin/Globulin Ratio 0.9 Bedside Glucose 141 mg/dl Assessment and Plan Ms. Munson is a 50 yr old female admitted 16 days ago with lethargy/sleepiness - course of hospitalizing has been complicated by a fall on 10/24/16, GI was reconsulted on 10/29/16 for N/V following dinner. Diet was backed down to clear liquids and symptoms have resolved, she has a history of gastroparesis. - Gastroparesis diet - small, frequent meals - easy to digest foods in AM - low fiber, low residue - Limit narcotics - Consider domperidone 10 mg TID if symptoms return or e-mycin 250 q6h - Continue Rifaxamin and continue to titrate lactulose to affect 3 BMs/day GI to sign off. Call with questions. I saw and evaluated the patient. GI was reconsult for history of nausea and vomiting yesterday. Of note she was being discharged when she had a sudden fall and the need for several surgeries over the last week. She most recently had an ear nose and throat procedure and had postoperative nausea and vomiting. She reports that she is tolerating a liquid diet today Recommendations Advance to a low residue diet If nausea recurs consider use of Emend Please call with any further questions or concerns
[2016-10-30] MEDS: INSULIN ASPART 100 UNITS/ML 3 ML PEN SC SCH ×4 (09:40→21:10)
[2016-10-30 10:11] VITALS: BP 124/74; PULSE 81; O2SAT 98
[2016-10-30] MEDS ORDERED: LIDODERM (LIDOCAINE) PATCH 5% TD ONE (13:00)
--- NOTE | 2016-10-30 13:04 | Consultant Recommendations ---
Air Quality Chemist Recommendations Date of Service Oct 30, 2016. Air Quality Chemist Recommendations LESLEY Rocha for support. PT as able Will see in office [address] Torres- [phone]
[2016-10-30 16:00] VITALS: BP 148/82; PULSE 85; TEMP 36.9; O2SAT 97
--- NOTE | 2016-10-30 16:09 | Hospitalist Progress Note ---
Hospitalist Progress Note Date of Service Oct 30, 2016. (Elisa Deleon PA-C) Subjective Pt evaluation today including: conversation w/ patient, physical exam, chart review, lab review, review of studies, review of inpatient medication list Patient seen and evaluated. Evaluated patient yesterday during vomiting episodes which have completely resolved. Reporting good appetite to advance the diet. Will do full liquids and advance as tolerated with diet recommendations per GI. Patient is sleeping when entering room but alertness is greatly improved. Reporting shoulder pain but would like to avoid narcotics as this was likely the cause of AMS. Discussed with case management and possible state approval tomorrow for SNF placement Constitutional: No fever, No chills Respiratory: No shortness of breath Cardiovascular: No chest pain Abdomen: No pain, No nausea, No vomiting Musculoskeletal: No calf pain Female : No dysuria Heme: No abnormal bleeding/bruising (Elisa Deleon PA-C) Medications Current Inpatient Medications Medications (Trade) Dose Ordered Sig/Danita Route Start Time Stop Time Status Last Admin Dose Admin Ondansetron HCl (Zofran Inj) 4 mg Q6H PRN IV 10/14/16 18:30 11/13/16 18:29 10/29/16 16:24 4 MG Budesonide/ Formoterol Fumarate (Symbicort 160/ 4.5 Inh) 2 puffs BID INH 10/14/16 21:00 11/13/16 20:59 10/25/16 21:40 2 PUFFS Albuterol/ Ipratropium (Duoneb) 3 ml QIDR PRN INH 10/14/16 18:30 11/13/16 18:29 Glucose (Glucose 40% Gel) 15-30 GRAMS 15 GRAMS... UD PRN PO 10/14/16 19:15 11/13/16 19:14 Glucose (Glucose Chew Tab) 4-8 Tablets 4 Tabl... UD PRN PO 10/14/16 19:15 11/13/16 19:14 Dextrose (Dextrose 50% 50ML Syringe) 25-50ML OF 50% DW IV FOR... UD PRN IV 10/14/16 19:15 11/13/16 19:14 Glucagon (Glucagon Inj) 1 mg UD PRN SQ 10/14/16 19:15 11/13/16 19:14 Heparin Sodium (Porcine) (Heparin 100 Unit/ml 5ml Flush) 5 ml PRN PRN IV 10/15/16 02:45 11/14/16 02:44 10/30/16 05:50 5 ML Albuterol (Ventolin Hfa Inhaler) 2 puffs Q4H PRN INH 10/15/16 08:00 11/14/16 07:59 Epinephrine (Epipen) 0.3 mg UD PRN IM 10/15/16 08:00 11/14/16 07:59 Ranitidine HCl (zANTac TAB) 150 mg BID PO 10/15/16 09:00 11/14/16 08:59 10/30/16 09:20 150 MG Pantoprazole Sodium (Protonix Tab) 40 mg QAM PO 10/15/16 09:00 11/14/16 08:59 10/30/16 09:20 40 MG Potassium Chloride (Klor-Con Tab) 20 meq QAM PO 10/17/16 09:00 11/14/16 08:59 10/30/16 09:21 20 MEQ Oxcarbazepine (Trileptal) 600 mg BID PO 10/18/16 21:00 11/16/16 08:59 10/30/16 09:23 600 MG Rifaximin (Xifaxan Tab) 550 mg BID PO 10/20/16 21:00 11/14/16 08:59 10/30/16 09:22 550 MG Insulin Glargine (Lantus Solostar Pen) 15 units PM SC 10/20/16 21:00 11/19/16 20:59 10/29/16 21:11 15 UNITS Topiramate (Topamax Tab) 50 mg BID PO 10/20/16 21:00 11/19/16 20:59 10/30/16 04:59 50 MG Levetiracetam (Keppra) 2,000 mg BID PO 10/23/16 10:00 11/22/16 09:59 10/30/16 09:25 2,000 MG Lactulose (Chronulac Syrup) 20 gm TID PO 10/23/16 21:00 11/14/16 08:59 10/30/16 13:34 20 GM Clindamycin HCl (Cleocin Cap) 150 mg Q6 PO 10/24/16 18:00 11/03/16 17:59 10/30/16 13:26 150 MG Lacosamide (Vimpat Tab) 100 mg BID PO 10/25/16 21:00 11/24/16 20:59 10/30/16 09:21 100 MG Insulin Aspart (novoLOG ASPART) SLIDING SCALE G... ACHS SC 10/28/16 17:15 11/27/16 05:59 10/30/16 13:34 5 UNITS Acetaminophen (Tylenol Tab) 650 mg Q6H PRN PO 10/30/16 08:45 11/29/16 08:44 10/30/16 09:33 650 MG Lidocaine (Lidoderm Patch 5%) 1 patch QAM TD 10/31/16 09:00 11/30/16 08:59 Miscellaneous (Remove Lidoderm Patch) 1 ea DAILY@21 N/A 10/30/16 21:00 11/29/16 20:59 (Elisa Deleon, PA-C) Objective Vital Signs Date Time Temp Pulse Resp B/P (MAP) Pulse Ox O2 Delivery O2 Flow Rate FiO2 10/30/16 10:11 81 98 10/30/16 08:00 36.8 70 18 124/70 (88) 98 Room Air 10/30/16 08:00 98 Room Air 10/30/16 08:00 Room Air 10/30/16 00:35 Room Air 10/29/16 22:56 36.6 82 24 135/68 (90) 97 Room Air 10/29/16 19:56 37.2 94 18 113/71 (85) 98 Room Air 10/29/16 15:55 Room Air (Elisa Deleon, PA-C) Physical Exam General Appearance: WD/WN, no apparent distress Eyes: sclerae normal, + pertinent finding (ecchymosis of L eye and edema - improving) ENT: hearing grossly normal Neck: supple, no JVD, trachea midline Respiratory/Chest: lungs clear, normal breath sounds, no respiratory distress, no accessory muscle use Cardiovascular: regular rate, rhythm, no gallop, no murmur Abdomen: normal bowel sounds, non tender, soft Extremities: no pedal edema, no calf tenderness, + pertinent finding (L arm in sling; pulses +2; normal temp/cap refill) Neurologic/Psychiatric: alert, oriented x 3 Skin: normal color, warm/dry (Elisa Deleon PA-C) Laboratory Results Last 24 Hours Test 10/29/16 16:36 10/29/16 17:02 10/29/16 19:50 10/29/16 20:50 White Blood Count 2.69 K/uL Red Blood Count 2.37 M/uL Hemoglobin 8.3 g/dL Hematocrit 23.7 % Mean Corpuscular Volume 100.0 fL Mean Corpuscular Hemoglobin 35.0 pg Mean Corpuscular Hemoglobin Concent 35.0 g/dl RDW Standard Deviation 63.0 fL RDW Coefficient of Variation 17.9 % Platelet Count 75 K/uL Mean Platelet Volume 9.7 fL Sodium Level 141 mmol/L Potassium Level 4.1 mmol/L Chloride Level 113 mmol/L Carbon Dioxide Level 24 mmol/L Anion Gap 4.0 mmol/L Blood Urea Nitrogen 13 mg/dl Creatinine 0.55 mg/dl Est Creatinine Clear Calc Drug Dose 151.1 ml/min Estimated GFR () 126.8 Estimated GFR (Non- 109.4 BUN/Creatinine Ratio 23.2 Random Glucose 222 mg/dl Calcium Level 7.3 mg/dl Total Bilirubin 2.1 mg/dl Aspartate Amino Transf (AST/SGOT) 48 U/L Alanine Aminotransferase (ALT/SGPT) 37 U/L Alkaline Phosphatase 109 U/L Total Protein 4.8 gm/dl Albumin 2.3 gm/dl Globulin 2.5 gm/dl Albumin/Globulin Ratio 0.9 Bedside Glucose 217 mg/dl Stool Occult Blood NEGATIVE Urine Color ORANGE Urine Appearance CLEAR Urine pH 6.0 Urine Specific [place] 1.024 Urine Protein NEG Urine Glucose (UA) 2+ Urine Ketones NEG Urine Occult Blood TRACE Urine Nitrite NEG Urine Bilirubin NEG Urine Urobilinogen NEG Urine Leukocyte Esterase SMALL Urine WBC (Auto) 1-5 /hpf Urine RBC (Auto) 0-4 /hpf Urine Hyaline Casts (Auto) 1-5 /lpf Urine Epithelial Cells (Auto) 20-30 /lpf Urine Bacteria (Auto) NEG Urine Yeast (Auto) BUDDING Test 10/29/16 20:54 10/30/16 05:28 10/30/16 07:47 10/30/16 11:52 Bedside Glucose 371 mg/dl 141 mg/dl 250 mg/dl White Blood Count 3.07 K/uL Red Blood Count 2.21 M/uL Hemoglobin 8.1 g/dL Hematocrit 22.4 % Mean Corpuscular Volume 101.4 fL Mean Corpuscular Hemoglobin 36.7 pg Mean Corpuscular Hemoglobin Concent 36.2 g/dl RDW Standard Deviation 66.3 fL RDW Coefficient of Variation 18.2 % Platelet Count 88 K/uL Mean Platelet Volume 10.1 fL Sodium Level 143 mmol/L Potassium Level 3.5 mmol/L Chloride Level 113 mmol/L Carbon Dioxide Level 22 mmol/L Anion Gap 8.0 mmol/L Blood Urea Nitrogen 9 mg/dl Creatinine 0.56 mg/dl Est Creatinine Clear Calc Drug Dose 148.4 ml/min Estimated GFR () 126.0 Estimated GFR (Non- 108.7 BUN/Creatinine Ratio 16.4 Random Glucose 123 mg/dl Calcium Level 7.3 mg/dl Total Bilirubin 1.8 mg/dl Aspartate Amino Transf (AST/SGOT) 44 U/L Alanine Aminotransferase (ALT/SGPT) 35 U/L Alkaline Phosphatase 91 U/L Total Protein 4.6 gm/dl Albumin 2.2 gm/dl Globulin 2.4 gm/dl Albumin/Globulin Ratio 0.9 (Elisa Deleon, PALindaC) Assessment and Plan 50yo female with 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 Had worsened encephalopathy likely associated with medication changes specifically anti epileptics, suffered a fall when left unattended by and fractured right nasal bones and left humerus, for repair of both L Humerus Fx S/P ORIF (10/27) and Nasal Bone Fx S/P Closed Reduction (10/28): STABLE - On 10/24 patient was discharged but was left alone when went to visit another patient and she sustained an unwitnessed fall with facial contusions and R hand pain - Clindamycin 150 mg Q6H for mucosal breach - Opiates have been D/C'd due to change in mental status - scheduled Tylenol and Lidocaine patch Hepatic Encephalopathy: IMPROVED - Worsening yesterday possible from narcotics - Suspect worsening from increased Trileptal - will need followed as outpatient with neurology - Lactulose 20 mg TID - recommend 2-3 BMs/day - Xifaxan 550 mg BID Pancytopenia 2/ STEVE: Continue to monitor - Hgb around 8 - continue to monitor Seizure D/O: - Vimpat 100 mg BID, Keppra 2 g BID, and Trileptal 600 mg BID - Follows with Neurology - plan for Keppra, Vimpat, and Trileptal - EEG in September with seizures noted RUL Pneumonia: - Treated but now on clinda for nasal fracture - Given RUL did have ID see and Quanterferon Gold sent with negative results Diabetes Mellitus: - Lantus 15 units SC daily and SSI DVT Prophylaxis: MIRYAM/SCDs; withhold chemical prophylaxis given thrombocytopenia Code Status: FULL RESUSCITATION Disposition: [facility] - will await mentation improvement -- Given psychiatric history she will be a target - OOA with possible approval tomorrow -- Advancing diet as tolerated and await state approval - if no acute events patient is optimal for D/C to [facility] with target process approval Continued [facility] stay due to: home environment unsafe for pt Discharge planning: halfway facility (Elisa Deleon PA-C) Reviewed: Pt Seen/Exam by Me (Mary Ann Rivera MD) History Physician Cigarette Roller Supervision Note: I interviewed and examined the patient. Discussed with GHULAM Deleon and agree with findings and plan as documented in the note. Any exceptions or clarifications are listed here: Pt here with prolonged stay and multiple medical issues, frequent hospitalizations for hepatic encephalopathy, who was ready for dc to home and then sustained a fall resulting in fracture of her left prox humerus and nasal bone. Now s/p left humerus ORIF and closed reduction nasal bone. Mental status greatly improved today with dc of all opioids. Pt apparently asking incessantly all day about taking opioids for pain. States that her liver doctor definitely doesn't want her taking more than 2 grams of acetaminophen daily, but doesn't mention any limits on opioids. We tried a Lidoderm patch on her and she complains to me that these aren't covered by her insurance as an outpatient, and then states that she has great concern about the patch overlying her jerri. I explained that the Lidoderm patch is covered while inpatient and at SNF; upon examination, the patch is not even placed directly over her jerri. SHe is moving her bowels regularly now. 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 -anemic from some blood loss on top of chronic anemia of chronic disease, follow and transfuse as needed -antiemetics -ABSOLUTE avoidance of all opioids or WARPER TENDER depressant meds---> discussed risks and benefits of all sorts of pain meds--> will give limited dose of lower dose Toradol due to thrombocytopenia, NO OPIOIDS, and continue Lidoderm patch, low dose of Tylenol prn -hopeful for dc soon, perhaps tomorrow -Appreciate GI recommendations for using Emend if has any further N/V but this is most likely due to previous opioid use on top of known gastroparesis -UA with budding yeast which may be contaminant from vagina as UA had a lot of epithelial cells--> very hesitant to treat for systemic infection given liver dysfunction; also, mental status clearly improved today without treatment for UTI, so not likely to be true UTI DVT Proph- SCDs Documented By: Mary Ann Rivera (Mary Ann Rivera MD)
[2016-10-30] MEDS: INSULIN GLARGINE SOLOSTAR 100 UNITS/ML 3 ML PEN SC SCH (20:58)
[2016-10-30] MEDS: KETOROLAC TROMETHAMINE 15 MG/ML VIAL IV PRN (21:12)
[2016-10-30 23:24] VITALS: BP 94/60; PULSE 72; TEMP 36.8; O2SAT 98
[2016-10-31] VITALS (11 sets, daily range): BP systolic 94–147; BP diastolic 55–83; PULSE 69–91; TEMP 36.2–37; O2SAT 95–100
[2016-10-31] MEDS: KETOROLAC TROMETHAMINE 15 MG/ML VIAL IV PRN (05:15)
[2016-10-31] MEDS: CLINDAMYCIN HCL 150 MG CAP PO SCH ×2 (05:15→13:17)
[2016-10-31 05:53] LABS: HEMATOCRIT 21.7 % (37-47); MEAN CORPUSCULAR HEMOGLOBIN 34.1 pg (25-34); MEAN CORPUSCULAR HGB CONC 34.1 g/dl (32-36); RED BLOOD COUNT 2.17 M/uL (4.2-5.4); WHITE BLOOD COUNT 1.71 K/uL (4.8-10.8)
[2016-10-31 06:03] LABS: MEAN PLATELET VOLUME 9.6 fL (7.4-10.4); PLATELET COUNT 82 K/uL (130-400)
[2016-10-31 06:33] LABS: BUN/CREATININE RATIO 15.1 (10-20); CALCIUM 7.3 mg/dl (8.5-10.1); CREATININE 0.59 mg/dl (0.60-1.20); POTASSIUM 3.6 mmol/L (3.5-5.1)
[2016-10-31 06:36] LABS: ALB/GLOB RATIO 0.9 (0.9-2)
[2016-10-31] MEDS: TOPIRAMATE 50 MG TAB PO SCH ×2 (08:43→21:49)
[2016-10-31] MEDS: RANITIDINE HCL 150 MG TAB PO SCH ×2 (08:43→21:52)
[2016-10-31] MEDS: RIFAXIMIN TAB 550 MG TAB PO SCH ×2 (08:43→21:51)
[2016-10-31] MEDS: POTASSIUM CHLORIDE 20 MEQ TABCR PO SCH (08:43)
[2016-10-31] MEDS: LIDODERM (LIDOCAINE) PATCH 5% TD SCH (08:43)
[2016-10-31] MEDS: LACOSAMIDE 50 MG TAB PO SCH ×2 (08:43→21:51)
[2016-10-31] MEDS: PANTOprazole SOD 40 MG TAB PO SCH (08:43)
[2016-10-31] MEDS: LEVETIRACETAM 1000 MG PO SCH ×2 (08:44→21:48)
[2016-10-31] MEDS: OXCARBAZEPINE 300 MG TAB PO SCH ×2 (08:44→21:50)
[2016-10-31] MEDS: LACTULOSE SYRUP 20 GM/30 ML UDC PO SCH ×2 (08:45→14:21)
[2016-10-31] MEDS: INSULIN ASPART 100 UNITS/ML 3 ML PEN SC SCH ×4 (08:55→21:56)
[2016-10-31] MEDS: BUDESONIDE/FORMOTEROL FUMARATE 160/4.5 60 PUFFS/INHALER INH SCH ×2 (08:55→21:00)
--- NOTE | 2016-10-31 16:29 | Hospitalist Progress Note ---
Hospitalist Progress Note Date of Service Oct 31, 2016. (Elisa Deleon PA-C) Subjective Pt evaluation today including: conversation w/ patient, physical exam, chart review, lab review, review of studies, review of inpatient medication list Patient seen and evaluated. Hemoglobin levels to 7.4 today. Will transfuse 1 unit PRBCs. Mentation has been largely improved since stopping opiate medication. Does report pain in shoulder and will increase Toradol. Verbalizes no other complaints today. Edema of face improving and she is able to open both eyes. Mu intact and surround skin without erythema/drainage. Tolerated diet with no further nausea/emesis. Plan for D/C to [facility] tomorrow. Constitutional: No fever, No chills Respiratory: No shortness of breath Cardiovascular: No chest pain Abdomen: No pain, No nausea, No vomiting Musculoskeletal: + joint pain (L shoulder) Heme: No abnormal bleeding/bruising (Elisa Deleon PA-C) Objective Vital Signs Date Time Temp Pulse Resp B/P (MAP) Pulse Ox O2 Delivery O2 Flow Rate FiO2 10/31/16 16:16 36.8 79 18 107/69 99 10/31/16 15:32 36.8 81 24 104/66 100 10/31/16 15:18 36.2 75 20 106/68 96 10/31/16 14:56 36.5 82 18 125/81 98 10/31/16 14:22 36.8 85 22 122/77 99 10/31/16 14:04 37.0 86 21 119/76 99 10/31/16 13:43 36.5 91 30 147/83 10/31/16 08:20 Room Air 10/31/16 08:15 96 10/31/16 08:12 36.3 69 20 94/58 (70) 96 Room Air 10/30/16 23:30 Room Air 10/30/16 23:24 36.8 72 20 94/60 (71) 98 Room Air (Elisa Deleon PA-C) Physical Exam General Appearance: no apparent distress Eyes: sclerae normal, + pertinent finding (ecchymosis improving; darked but resolving; edema reducing and able to open L eye) ENT: hearing grossly normal Neck: supple, no JVD, trachea midline Respiratory/Chest: lungs clear, normal breath sounds, no respiratory distress, no accessory muscle use Cardiovascular: regular rate, rhythm, no gallop, no murmur Abdomen: normal bowel sounds, non tender, soft Extremities: no pedal edema, no calf tenderness Neurologic/Psychiatric: alert, oriented x 3 Skin: normal color, warm/dry (Elisa Deleon PA-C) Laboratory Results Last 24 Hours Test 10/30/16 17:01 10/30/16 20:44 10/31/16 05:43 10/31/16 07:57 Bedside Glucose 213 mg/dl 224 mg/dl 128 mg/dl White Blood Count 1.71 K/uL Red Blood Count 2.17 M/uL Hemoglobin 7.4 g/dL Hematocrit 21.7 % Mean Corpuscular Volume 100.0 fL Mean Corpuscular Hemoglobin 34.1 pg Mean Corpuscular Hemoglobin Concent 34.1 g/dl RDW Standard Deviation 65.4 fL RDW Coefficient of Variation 18.0 % Platelet Count 82 K/uL Mean Platelet Volume 9.6 fL Sodium Level 142 mmol/L Potassium Level 3.6 mmol/L Chloride Level 113 mmol/L Carbon Dioxide Level 23 mmol/L Anion Gap 6.0 mmol/L Blood Urea Nitrogen 9 mg/dl Creatinine 0.59 mg/dl Est Creatinine Clear Calc Drug Dose 140.8 ml/min Estimated GFR () 123.9 Estimated GFR (Non- 106.9 BUN/Creatinine Ratio 15.1 Random Glucose 125 mg/dl Calcium Level 7.3 mg/dl Total Bilirubin 1.4 mg/dl Aspartate Amino Transf (AST/SGOT) 43 U/L Alanine Aminotransferase (ALT/SGPT) 36 U/L Alkaline Phosphatase 94 U/L Total Protein 4.2 gm/dl Albumin 2.0 gm/dl Globulin 2.2 gm/dl Albumin/Globulin Ratio 0.9 Test 10/31/16 11:52 Bedside Glucose 203 mg/dl (Elisa Deleon PA-C) Assessment and Plan 50yo female with 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 Had worsened encephalopathy likely associated with medication changes specifically anti epileptics, suffered a fall when left unattended by and fractured right nasal bones and left humerus, for repair of both L Humerus Fx S/P ORIF (10/27) and Nasal Bone Fx S/P Closed Reduction (10/28): STABLE - On 10/24 patient was discharged but was left alone when went to visit another patient and she sustained an unwitnessed fall with facial contusions and R hand pain - Clindamycin course given and will D/C - Opiates have been D/C'd due to change in mental status - scheduled Tylenol and Lidocaine patch - mentation has remained improved since this Hepatic Encephalopathy: IMPROVED - Suspect worsening from increased Trileptal on admission - will need followed as outpatient with neurology - Lactulose 20 mg TID - recommend 2-3 BMs/day - Xifaxan 550 mg BID Pancytopenia / STEVE: Continue to monitor - Transfused 2 units on 10/27 and 1 unit 10/31 - repeat CBC in AM and monitor as outpatient Seizure D/O: - Vimpat 100 mg BID, Keppra 2 g BID, and Trileptal 600 mg BID - Follows with Neurology - plan for Keppra, Vimpat, and Trileptal - EEG in September with seizures noted RUL Pneumonia: - Abx course complete - given RUL did have ID see and Quanterferon Gold sent with negative results Diabetes Mellitus: - Lantus 15 units SC daily and SSI DVT Prophylaxis: MIRYAM/SCDs; withhold chemical prophylaxis given thrombocytopenia Code Status: FULL RESUSCITATION Disposition: D/C tomorrow to [facility] Continued [facility] stay due to: home environment unsafe for pt Discharge planning: fpc facility (Elisa Deleon PA-C) Reviewed: Pt Seen/Exam by Me (Mary Ann Rivera MD) History Physician Car Cleaning Supervisor Supervision Note: I interviewed and examined the patient. Discussed with GHULAM Deleon and agree with findings and plan as documented in the note. Any exceptions or clarifications are listed here: Pt here with prolonged stay and multiple medical issues, frequent hospitalizations for hepatic encephalopathy, who was ready for dc to home and then sustained a fall resulting in fracture of her left prox humerus and nasal bone. Now s/p left humerus ORIF and closed reduction nasal bone. Mental status remains very clear. RN reports innumerable episodes of liquid stools and incontinence today and starting ot have skin breakdown of upper thighs. 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 -anemic from some blood loss on top of chronic anemia of chronic disease, worse today-->transfused 1 unit PRBC -ABSOLUTE avoidance of all opioids or [employer]STRUCTOR [employer]PECTION depressant meds---> discussed risks and benefits of all sorts of pain meds--> will give limited dose of lower dose Toradol due to thrombocytopenia, NO OPIOIDS, and continue Lidoderm patch, low dose of Tylenol prn -hopeful for dc tomorrow to SNF -UA with budding yeast which may be contaminant from vagina as UA had a lot of epithelial cells--> very hesitant to treat for systemic infection given liver dysfunction; also, mental status clearly improved without treatment for UTI, so not likely to be true UTI--> f/u urine cx -will decrease lactulose to once daily given innumerable liquid BMs now; titrate back up or down to 3 BMs per day DVT Proph- SCDs Documented By: Mary Ann Rivera (Mary Ann Rivera MD)
[2016-10-31] MEDS ORDERED: MTR/400 PO (17:52)
[2016-10-31] MEDS ORDERED: ACET-1047 PO (17:52)
[2016-10-31] MEDS ORDERED: LDDP5 TD (17:52)
--- NOTE | 2016-10-31 18:04 | Discharge Instructions ---
Discharge Instructions Date of Service Oct 31, 2016. Admission Reason for Admission: Hyperammonemia, Pneumonia Discharge Discharge Diagnosis / Problem: Hepatic Encaphalopathy, Pneumonia, R Nasal Fx, L Humerus Fx Discharge Goals Goal(s): Decrease discomfort, Improve function, Increase independence Activity Recommendations Activity Level: Assistance Required Therapies: Physical Therapy, Occupational Therapy Weightbearing Status: Left weightbearing (as tolerated), Right weightbearing ( as tolerated) Lifting Limitations: gradually increase as tolerated (no limitations on R arm; non-weightbearing of L arm) L upper arm - non-weightbearing; gentle PT . Additional Information Patient informed of condition: Yes Advance Directives: No DNR: No Level of Care: Skilled Communicable Disease: No Prognosis: Stable Cuello Catheter: No Instructions / Follow-Up Instructions / Follow-Up 50yo female with cirrhosis 2nd to STEVE and multiple hospitalizations in the past for hepatic encephalopathy who presented with AMS due to hepatic encephalopathy. Had worsened encephalopathy likely associated with medication changes specifically anti-epileptics, suffered a fall when left unattended by and fractured right nasal bones and left humerus L Humerus Fx S/P ORIF (10/27) and Nasal Bone Fx S/P Closed Reduction (10/28): STABLE - On 10/24 patient was discharged but was left alone when went to visit another patient and she sustained an unwitnessed fall with facial contusions and R hand pain - Clindamycin course given for nasal bridge compromise but course completed in hospital - Opiates have been D/C'd due to change in mental status - Tylenol, Ibuprofen for pain only is recommended - mentation has remained improved since discontinuation of opioids Hepatic Encephalopathy: RESOLVED - Suspect worsening from increased Trileptal on admission - will need followed as outpatient with neurology - Lactulose 20 g BID-TID - recommend 2-3 BMs/day - there is some tendency for non-compliance at home -was having a lot of liquid stool with incontinence prior to discharge so lactulose dose decreased to bid - Xifaxan 550 mg BID Pancytopenia 2/2 STEVE, splenomegaly: - Transfused 2 units on 10/27 and 1 unit 10/31 - stool heme negative -Hgb 8.4, Plts 85k, WBC 1.9 day of discharge--> fairly stable -follow CBC in 2-3 days Gastroparesis: - GI recommending a diet with small frequent meals, easy digest, low fiber Seizure D/O: - Vimpat 100 mg BID, Keppra 2 g BID, and Trileptal 600 mg BID - Follows with Neurology - plan for Keppra, Vimpat, and Trileptal - EEG in September with seizures noted -- Will need outpatient follow-up for monitoring-appt scheduled RUL Pneumonia:resolved - Abx course complete - given RUL did have ID see and Quanterferon Gold sent with negative results Diabetes Mellitus: -insulin glargine and sliding scale Code Status: FULL RESUSCITATION Disposition: [facility] Neurology Office with Anila Yoo PA-C on FridayOctober 30 at 3:30 pm. You also have follow up with Dr. Sams/ENT on FridayNov 05 for your nasal fracture. Please also follow up with Dr. Torres/Ortho as scheduled on 11/14. Current Hospital Diet Patient's current hospital diet: Diabetes Type 2 Diet, Low Fiber Diet Discharge Diet Recommended Diet: Diabetes Type 2 Diet, Low Fiber Diet Procedures Procedures Performed: Closed Reduction Nasal Fracture With Stabilization Pending Studies Studies pending at discharge: no Physician Orders On Transfer POLST Discussion: Not Applicable Laboratory Results Last 24 Hours Test 10/31/16 11:52 10/31/16 17:11 10/31/16 20:40 11/01/16 05:44 Bedside Glucose 203 mg/dl 191 mg/dl 188 mg/dl White Blood Count 1.90 K/uL Red Blood Count 2.45 M/uL Hemoglobin 8.4 g/dL Hematocrit 24.6 % Mean Corpuscular Volume 100.4 fL Mean Corpuscular Hemoglobin 34.3 pg Mean Corpuscular Hemoglobin Concent 34.1 g/dl RDW Standard Deviation 64.6 fL RDW Coefficient of Variation 17.6 % Platelet Count 85 K/uL Mean Platelet Volume 10.4 fL Sodium Level 142 mmol/L Potassium Level 3.9 mmol/L Chloride Level 114 mmol/L Carbon Dioxide Level 22 mmol/L Anion Gap 6.0 mmol/L Blood Urea Nitrogen 10 mg/dl Creatinine 0.49 mg/dl Est Creatinine Clear Calc Drug Dose 169.6 ml/min Estimated GFR () 131.7 Estimated GFR (Non- 113.6 BUN/Creatinine Ratio 19.5 Random Glucose 123 mg/dl Calcium Level 7.2 mg/dl Test 11/01/16 09:33 Bedside Glucose 191 mg/dl Hemoglobin A1c Test 09/25/16 08:18 Range/Units Estimated Average Glucose 71 mg/dl Hemoglobin A1c 4.1 L 4.5-5.6 % Lipid Panel Test 09/25/16 08:18 Range/Units Triglycerides Level 46 0-150 mg/dl Cholesterol Level 126 0-200 mg/dl HDL Cholesterol 72 mg/dl Cholesterol/HDL Ratio 1.8 LDL Cholesterol, Calculated 45 mg/dl Medical Emergencies . Who to Call and When: Medical Emergencies: If at any time you feel your situation is an emergency, please call 911 immediately. . Non-Emergent Contact Non-Emergency issues call your: Primary Care Provider Call Non-Emergent contact if: you have a fever, your pain is concerning you, you have any medication questions . . "Provider Documentation" section prepared by Elisa Deleon. . Flame Cutting Machine Operator Recommendations Flame Cutting Machine Operator Recommendations: LESLEY Rocha for support. PT as able Will see in office [address] Torres- [phone] Core Measure Problem Core Measures: None
[2016-10-31] MEDS: KETOROLAC TROMETHAMINE 30 MG/ML VIAL IV. PRN (18:40)
[2016-10-31] MEDS: INSULIN GLARGINE SOLOSTAR 100 UNITS/ML 3 ML PEN SC SCH (21:57)
[2016-11-01] MEDS ORDERED: LEVOTHYROXINE 75 MCG TAB PO SCH (06:00)
[2016-11-01 06:05] LABS: HEMATOCRIT 24.6 % (37-47); MEAN CELL VOLUME 100.4 fL (80-100); MEAN CORPUSCULAR HEMOGLOBIN 34.3 pg (25-34); MEAN CORPUSCULAR HGB CONC 34.1 g/dl (32-36); RED BLOOD COUNT 2.45 M/uL (4.2-5.4)
[2016-11-01 06:06] LABS: MEAN PLATELET VOLUME 10.4 fL (7.4-10.4); PLATELET COUNT 85 K/uL (130-400)
[2016-11-01] MEDS: KETOROLAC TROMETHAMINE 30 MG/ML VIAL IV. PRN (06:39)
[2016-11-01 06:44] LABS: BUN/CREATININE RATIO 19.5 (10-20); CALCIUM 7.2 mg/dl (8.5-10.1); CREATININE 0.49 mg/dl (0.60-1.20); POTASSIUM 3.9 mmol/L (3.5-5.1)
[2016-11-01 07:42] VITALS: BP 108/66; PULSE 67; TEMP 36.4; O2SAT 96
[2016-11-01] MEDS: BUDESONIDE/FORMOTEROL FUMARATE 160/4.5 60 PUFFS/INHALER INH SCH (09:00)
[2016-11-01] MEDS ORDERED: LACTULOSE SYRUP 20 GM/30 ML UDC PO SCH (09:00)
[2016-11-01] MEDS: LIDODERM (LIDOCAINE) PATCH 5% TD SCH (09:00)
[2016-11-01] MEDS: LEVETIRACETAM 1000 MG PO SCH (09:34)
[2016-11-01] MEDS: PANTOprazole SOD 40 MG TAB PO SCH (09:35)
[2016-11-01] MEDS: RANITIDINE HCL 150 MG TAB PO SCH (09:35)
[2016-11-01] MEDS: POTASSIUM CHLORIDE 20 MEQ TABCR PO SCH (09:35)
[2016-11-01] MEDS: RIFAXIMIN TAB 550 MG TAB PO SCH (09:36)
[2016-11-01] MEDS: LACOSAMIDE 50 MG TAB PO SCH (09:36)
[2016-11-01] MEDS: TOPIRAMATE 50 MG TAB PO SCH (09:37)
[2016-11-01] MEDS: OXCARBAZEPINE 300 MG TAB PO SCH (09:38)
[2016-11-01] MEDS: INSULIN ASPART 100 UNITS/ML 3 ML PEN SC SCH (09:47)
[2016-11-01] MEDS ORDERED: LCTL30 PO (10:42)
[2016-11-01 13:26] VITALS: BP 108/66; PULSE 67; TEMP 36.4; O2SAT 96
--- NOTE | 2016-11-01 22:29 | Discharge Summary ---
Discharge Summary Date of Service Nov 01, 2016. Discharge Summary Admission Date: Oct 14, 2016 at 18:34 Discharge Date: Nov 01, 2016 Discharge Disposition: longterm facility Principal Diagnosis: Hepatic encephalopathy Problems/Secondary Diagnoses: Cirrhosis secondary to STEVE Fractured nasal bone Fractured left humerus Pancytopenia Seizure disorder RUL Pneumonia Diabetes Mellitus II Diabetic gastroparesis Possible UTI Asthma Multiple hospitalizations for hepatic encephalopathy Bipolar disorder Depression Migraines H/o myelodysplastic syndrome H/o PUD Portal HTN Seizures and pseudoseizures Parkinsonism Hypothyroidism Hypoglycemia GERD Suspected reactive arthritis vs psoriatic arthritis of the hands 1. h/o nasal septoplasty 2. s/p appendectomy 3. s/p cholecystectomy 4. s/p hysterectomy 5. h/o lumbar kyphoplasty 6. s/p tonsillectomy 7. s/p spinal nerve stimulator 8. port placement, right chest Immunizations: Have You Had Influenza Vaccine: Yes Influenza Vaccine Date: Feb 02, 2013 History of Tetanus Vaccine?: utd Tetanus Immunization Date: Jun 11, 2008 History of Pneumococcal: SEE LAST PACKET Pneumococcal Date: Nov 13, 2008 History of Hepatitis B Vaccine: Unknown Hepatitis Immunization Date: Jan 12, 1996 Procedures: Chest xrays: RUL infiltrate vs atelectasis Repeat CXR- negative Head CT- right frontal scalp contusion decreased in size from previous Maxillofacial CT: 1. Comminuted and displaced right nasal bone fracture with rightward displacement. No other acute osseous injury. 2. Partial opacification of the left maxillary sinus and anterior nasal cavity could represent hemorrhage. Right hand xray: 1. Multiple erosions of the periarticular heads of several phalanges at both the proximal and distal interphalangeal joints. This distribution could indicate psoriatic arthritis or reactive arthritis. 2. Persistent diffuse soft tissue swelling. 3. Osteopenia. Left shoulder xray: Moderately displaced/angled fracture left proximal humeral shaft. No evidence of dislocation Consultations: Neurology Gastroenterology Orthopedics ENT Infectious Disease Medication Reconciliation New Medications: Ibuprofen (Ibuprofen) 400 Mg Tab 400 MG PO Q4H PRN for Pain for 14 Days Acetaminophen (Mapap) 325 Mg Tab 650 MG PO Q6H PRN for pain for 14 Days, #112 TAB Lacosamide (Vimpat) 50 Mg Tab 100 MG PO BID, #60 TAB 5 Refills Lactulose (Lactulose) 20 Gm/30 Ml Syrp 20 GM PO BID for 30 Days and titrate up or down on dose for goal of 3 bowel movements daily Changed Medications: Insulin Glargine (Toujeo Solostar) 300 Unit/Ml Inj 20 UNITS SQ QAM, #1 PEN 5 Refills (Changed from: 38 UNITS; Refills: ) Continued Medications: Albuterol Hfa (Ventolin Hfa) 200 Puffs/45398 Mcg Aers 2-4 PUFFS INH Q6H PRN for Shortness of Breath, #1 INHALER Budesonide/Formoterol Fumarate (Symbicort 160/4.5 Inhaler ) Aero 2 PUFFS INH BID Epinephrine (Epipen) 0.3 Mg/0.3 Ml Inj 0.3 MG IM UD PRN for ALLERGIC REACTION Ferrous Sulfate (Ferrous Sulfate) 325 Mg Tab 325 MG PO QPM Fluticasone Propionate (Fluticasone Propionate) 120 Sprays/6000 Mcg Inha 1-2 SPRAYS ABRAHAN BID Glucose-Vitamin C (Glucose) 1 Chw Chw 1 CHW PO UD PRN for Hypoglycemia Insulin Lispro (Human) (Humalog Kwikpen) 100 Unit/Ml Inj UNITS SC UD PER SLIDING SCALE Levothyroxine Sodium (Levothyroxine Sodium) 75 Mcg Tab 75 MCG PO QAM, TAB Magnesium Oxide (Mag-Ox) 400 Mg Tab 400 MG PO TID, TAB Omeprazole (Prilosec) 20 Mg Capcr 20 MG PO QAM, CAP Oxcarbazepine (Trileptal) 600 Mg Tab 600 MG PO BID Probiotic Product (Probiotic) 1 Cap Cap 1 CAP PO DAILY Ranitidine HCl (Ranitidine HCl) 150 Mg Tab 150 MG PO BID Rifaximin (Xifaxan) 550 Mg Tab 550 MG PO BID, TAB Rizatriptan Benzoate (Rizatriptan Benzoate) 10 Mg Tab 10 MG PO UD PRN for Headache TAKE ONE TABLET AT ONSET OF HEADACHE, MAY REPEAT AFTER 2 HOURS IF NEEDED. MAXIMUM OF 3 TABLETS IN 24 HOURS. Topiramate (Topamax) 25 Mg Tab 50 MG PO BID TWO 25MG TABLETS. Zinc Gluconate (Zinc) 50 Mg Tab 50 MG PO BID [Levetiracetam] () 1000 MG TAB 2000 MG PO BID, #60 TAB Discontinued Medications: Ascorbic Acid (Vitamin C) 1,000 Mg Tab 1000 MG PO QAM Caffeine-Magnesium Salicylate (Diurex 50-162.5 mg) 1 Tab Tab 1 TAB PO QAM Cholecalciferol (Vitamin D) 2,000 Unit Tab 2000 UNITS PO DAILY Cranberry (Vaccinium Macrocarp (Cranberry) Unknown Strength Tab 1 TAB PO TID Desvenlafaxine Succinate (Pristiq) 50 Mg Tab 50 MG PO QAM, TAB Lecithin (Lecithin) 1,200 Mg Cap 1200 MG PO DAILY Levodopa/Carbidopa (Sinemet Cr 25MG/100MG) 1 Ea Tabcr 0.5 TAB PO TID, TAB Lutein (Lutein) 20 Mg Tab 20 MG PO DAILY Meloxicam (Mobic) 7.5 Mg Tab 7.5 MG PO DAILY PRN for Pain Mirtazapine (Remeron) 15 Mg Tab 15 MG PO HS Multiple Vitamin (Multivitamin) 1 Tab Tab 1 TABLET PO DAILY Pumpkin Seed-Soy Germ (Azo Bladder Control/Go-Le) 1 Cap Cap 1 CAP PO DAILY Vitamin A (A-60815) 10,000 Unit Cap 59481 INTER.UNIT PO DAILY Vitamin E (Vitamin E) 400 Unit Tab 400 UNITS PO DAILY Discharge Exam Feeling well day of discharge. Has a blister right inner thigh from fecal incontinence frequency. Ready for discharge Physical Exam General Appearance: no apparent distress Eyes: sclerae normal, + pertinent finding (left periorbital ecchymosis improving; edema reducing and able to open L eye) ENT: hearing grossly normal Neck: supple, no JVD, trachea midline Respiratory/Chest: lungs clear, normal breath sounds, no respiratory distress, no accessory muscle use Cardiovascular: regular rate, rhythm, no gallop, no murmur Abdomen: normal bowel sounds, non tender, soft Extremities: no pedal edema, no calf tenderness Neurologic/Psychiatric: alert, oriented x 3 Skin: ecchymosis left periorbital region, left shoulder with jerri and no erythema, right upper inner thigh with small superficial wound Review of Systems: Constitutional: No fever, No chills Eyes: No problem reported ENT: No problem reported Respiratory: No problem reported Cardiovascular: No problem reported Abdomen: + diarrhea Musculoskeletal: + joint pain (left shoulder pain) Genitourinary - Female: No problem reported Neurologic: No problem reported Psychiatric: No problem reported Endocrine: No problem reported Hematologic / Lymphatic: No problem reported Integumentary: No problem reported Hospital Course 50yo female with 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 Had worsened encephalopathy likely associated with medication changes specifically anti epileptics, who then suffered a fall when left unattended by and fractured right nasal bones and left humerus; underwent repair of both L Humerus Fx S/P ORIF (10/27) and Nasal Bone Fx S/P Closed Reduction (10/28): STABLE - On 10/24 patient was discharged but was left alone when went to visit another patient and she sustained an unwitnessed fall with facial contusions and R hand pain - Clindamycin course completed for prophylaxis for nasal fracture - Opiates have been D/C'd due to change in mental status - scheduled Tylenol and ibuprofen only to be given - mentation has remained improved since this -follow up with Ortho and ENT in 1-2 weeks Hepatic Encephalopathy, Portal HTN, STEVE, Cirrhosis: encephalopathy resolved, otherwise stable. [facility] GI - Suspect worsening from increased Trileptal on admission - will need followed as outpatient with neurology - Lactulose 20 mg BID-TID - recommend 2-3 BMs/day - Xifaxan 550 mg BID Pancytopenia 2/2 cirrhosis, splenomegaly, and anemia of chronic disease: Also with some blood loss from trauma and surgeries. Hemoccult stool negative - Transfused 2 units on 10/27 and 1 unit 8/3 Hgb day of discharge 8.4 -follow CBC in 2-3 days at [facility] Seizure D/O, Parkinsonism, Tremors, Migraines: no seizure activity this admission. Seen by Neuro - continue Vimpat 100 mg BID, Keppra 2 g BID, and Trileptal 600 mg BID -Sinemet discontinued as was not helping tremor - Follows with Neurology - plan for Keppra, Vimpat, and Trileptal - EEG in September with seizures noted -continue Topamax for migraine prophylaxis -f/u with Neuro in 1-2 weeks as scheduled RUL Pneumonia vs atelectasis: - Abx course complete - given RUL did have ID see and Quantiferon Gold sent with negative results Diabetes Mellitus II, hypoglycemia on admission-resolved: - Long and short acting insulins given Possible UTI -UA with budding yeast which may be contaminant from vagina as UA had a lot of epithelial cells--> very hesitant to treat for systemic infection given liver dysfunction; also, mental status clearly improved without treatment for UTI, so not likely to be true UTI--> f/u urine culture after discharge Diarrhea-will decrease lactulose to once daily given innumerable liquid BMs now ; titrate back up or down to 3 BMs per day Diabetic gastroparesis-stable -give small, frequent meals Asthma-no issues this admission -continue inhalers Bipolar disorder, Depression- chronic, had her Pristiq stopped this admission H/o PUD, GERD-stable -continue PPI Hypothyroidism -TSH 0.253 in 08/2016 with normal FT4 -continue current dose levothyroxine -repeat TSH in 6 weeks Suspected reactive arthritis vs psoriatic arthritis of the hands- seen on xray -clinically observe Discharged to [facility] in stable condition Total Time Spent: Greater than 30 minutes This includes examination of the patient, discharge planning, medication reconciliation, and communication with other providers. Discharge Instructions Please refer to the electronic Patient Visit Report (Discharge Instructions) for additional information. Follow-Up Neuro 1 week Ortho 2 weeks ENT 4 days Check CBC 2-3 days Additional Copies To [facility]
[2016-12-26] MEDS ORDERED: CIPR-255 PO (10:04)
[2017-01-01] MEDS ORDERED: [UNRECOGNIZED DRUG - CODE] PO (07:45)
[2017-01-01] MEDS ORDERED: OXYC1TAB3 PO (07:45)
== END 2016-11-01 14:01 | DRG 981 ==
LOC: C.EDB 16:23 → C.2T 18:34 → ENRESERV 18:55 → C.MS2W 10-15 17:35 → ENRESERV 10-19 17:06 → C.MED 10-19 18:21 → ENRESERV 10-25 16:27 → C.MSN 10-25 17:12
PROVIDERS: ADMIT Internal Medicine; ATTEND Internal Medicine
PROC: 0PSG04Z Reposition Left Humeral Shaft with Internal Fixation Device, Open Approach (ICD-10-PCS; principal; 2016-10-27 07:30)
PROC: 0NSBXZZ Reposition Nasal Bone, External Approach (ICD-10-PCS; 2016-10-28)
DX: K72.90 Hepatic failure, unspecified without coma (principal); J18.9 Pneumonia, unspecified organism; G92 Toxic encephalopathy; N39.0 Urinary tract infection, site not specified; D61.818 Other pancytopenia; J98.11 Atelectasis; D62 Acute posthemorrhagic anemia; E87.0 Hyperosmolality and hypernatremia; K76.6 Portal hypertension; M02.342 Reiter's disease, left hand; M02.341 Reiter's disease, right hand; Z68.41 Body mass index [BMI] 40.0-44.9, adult; S42.202A Unspecified fracture of upper end of left humerus, initial encounter for closed fracture; K74.69 Other cirrhosis of liver; K75.81 Nonalcoholic steatohepatitis (NASH); T42.1X5A Adverse effect of iminostilbenes, initial encounter; S02.2XXA Fracture of nasal bones, initial encounter for closed fracture; S00.83XA Contusion of other part of head, initial encounter; M79.641 Pain in right hand; W19.XXXA Unspecified fall, initial encounter; Y92.230 Patient room in hospital as the place of occurrence of the external cause; G40.909 Epilepsy, unspecified, not intractable, without status epilepticus; R07.9 Chest pain, unspecified; R11.2 Nausea with vomiting, unspecified; E83.42 Hypomagnesemia; Z91.14 Patient's other noncompliance with medication regimen; Z91.19 Patient's noncompliance with other medical treatment and regimen; E87.6 Hypokalemia; E86.0 Dehydration; R19.7 Diarrhea, unspecified; I45.81 Long QT syndrome; J45.909 Unspecified asthma, uncomplicated; E11.649 Type 2 diabetes mellitus with hypoglycemia without coma; G20 Parkinson's disease; E11.43 Type 2 diabetes mellitus with diabetic autonomic (poly)neuropathy; K31.84 Gastroparesis; E11.42 Type 2 diabetes mellitus with diabetic polyneuropathy; E03.9 Hypothyroidism, unspecified; D63.8 Anemia in other chronic diseases classified elsewhere; R16.1 Splenomegaly, not elsewhere classified; K21.9 Gastro-esophageal reflux disease without esophagitis; G43.909 Migraine, unspecified, not intractable, without status migrainosus; L40.50 Arthropathic psoriasis, unspecified; F31.9 Bipolar disorder, unspecified; E66.01 Morbid (severe) obesity due to excess calories; Z87.11 Personal history of peptic ulcer disease; Z79.51 Long term (current) use of inhaled steroids; Z79.4 Long term (current) use of insulin; Z79.899 Other long term (current) drug therapy; Z79.1 Long term (current) use of non-steroidal anti-inflammatories (NSAID)

== ENCOUNTER 2016-11-11 11:21 | Emergency (ER) | payer BC, OTHER ==
[~2016-11-11] VITALS: Ht 165.1 cm; Wt 93.8 kg
[~2016-11-11 11:21] MED LIST changes: +ACET-1047 PO; -ASCO10003 PO; -CAFF3TAB PO; -CARB25TA16 PO; -CHOL20009 PO; -CRAN1TAB PO; -DESV50TA2 PO; +LACO50TA PO; -LACT10SO17 PO; +LCTL30 PO; -LECI1200 PO; -LUTE20TA PO; -MELO7.5T6 PO; -MIRT15TA3 PO; +MTR/400 PO; -MULTTAB58 PO; -PUMP1CAP PO; -TOPI25TA99 PO; -VITA1CAP11 PO; -VITA1TAB4 PO
[2016-11-11 11:33] VITALS: Ht 165.1 cm; Wt 93.8 kg
[2016-11-11] MEDS ORDERED: PROMETHAZINE HCL INJ 12.5 MG in SODIUM CHLORIDE 0.9% 50ML 50 ML IV STA (12:03)
[2016-11-11] MEDS ORDERED: ONDANSETRON INJ 2 MG/ML 2 ML VIAL IV STA (12:03)
[2016-11-11] MEDS ORDERED: LACTULOSE SYRUP 20 GM/30 ML UDC PO STA (12:03)
[2016-11-11] MEDS ORDERED: SODIUM CHLORIDE 0.9% 1000ML 1,000 ML IV STA (12:03)
[2016-11-11] MEDS ORDERED: OXYCODONE HCL IR 5 MG TAB (IMMEDIATE RELEASE) PO STA ×2 (12:03→14:19)
--- NOTE | 2016-11-11 12:07 | EMERGENCY ROOM VISIT NOTE ---
History Report prepared by Broderick: Anay Reyes Under the Supervision of: Dr. Hemant Willard D.O. First contact with patient: 11:56 Chief Complaint: OTHER COMPLAINT Stated Complaint: ILLNESS History of Present Illness The patient is a 50 year old female who presents to the Emergency Room with complaints of persistent nausea for the past few days. She was referred to the ED by [facility], where she currently resides. The patient admits she has not been able to take her Lactulose and seizure medications because of her nausea. Zofran has provided no relief. She last took her medications last night, but was unable to take them this morning. She also complains of left shoulder pain, stating she fell and broke her left shoulder approximately 3 weeks ago. She underwent shoulder surgery by Dr. Torres at [facility] 2 weeks ago. [facility] has been giving her Roxicodone for her shoulder pain, but she states it is only providing minimal relief. The patient also complains of some increased swelling in her bilateral legs. Source of History: patient Onset: past few days Position: other (global) Quality: other (nausea) Timing: other (persistent) Modifying Factors (Relieving): anti-emetics (Zofran) Review of Systems See HPI for pertinent positives & negatives. A total of 10 systems reviewed and were otherwise negative. 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 (18) Seizure disorder Surgical Problems: (1) H/O nasal septoplasty (2) History of appendectomy (3) History of cholecystectomy (4) History of hysterectomy (5) History of kyphoplasty (6) History of tonsillectomy (7) s/p spinal stimulator placement Family History Depression Hypertension Social History Smoking Status: Never Smoker Alcohol Use: none Drug Use: none Marital Status: Housing Status: lives with significant other Occupation Status: disabled Current/Historical Medications Scheduled Budesonide/Formoterol Fumarate (Symbicort 160/4.5 Inhaler ), 2 PUFFS INH BID Ferrous Sulfate (Ferrous Sulfate), 325 MG PO QPM Fluticasone Propionate (Fluticasone Propionate), 1-2 SPRAYS ABRAHAN BID Insulin Glargine (Toujeo Solostar), 20 UNITS SQ QAM Insulin Lispro (Human) (Humalog Kwikpen), UNITS SC UD Lactulose (Lactulose), 20 GM PO BID Levothyroxine Sodium (Levothyroxine Sodium), 75 MCG PO QAM Magnesium Oxide (Mag-Ox), 400 MG PO TID Omeprazole (Prilosec), 20 MG PO QAM Ondasetron Odt (Zofran Odt), 4 MG SL Q6H Oxcarbazepine (Trileptal), 600 MG PO BID Probiotic Product (Probiotic), 1 CAP PO DAILY Ranitidine HCl (Ranitidine HCl), 150 MG PO BID Rifaximin (Xifaxan), 550 MG PO BID Topiramate (Topamax), 50 MG PO BID Zinc Gluconate (Zinc), 50 MG PO BID [Levetiracetam], 2,000 MG PO BID Scheduled PRN Acetaminophen (Mapap), 650 MG PO Q6H PRN for pain Albuterol Hfa (Ventolin Hfa), 2-4 PUFFS INH Q6H PRN for Shortness of Breath Epinephrine (Epipen), 0.3 MG IM UD PRN for ALLERGIC REACTION Glucose-Vitamin C (Glucose), 1 CHW PO UD PRN for Hypoglycemia Ibuprofen (Ibuprofen), 400 MG PO Q4H PRN for Pain Rizatriptan Benzoate (Rizatriptan Benzoate), 10 MG PO UD PRN for Headache Allergies Coded Allergies: Amoxicillin (Verified Allergy, Intermediate, HIVES, 08/13/16) Azithromycin (Verified Allergy, Intermediate, HIVES, 08/13/16) Baclofen (Verified Allergy, Intermediate, RASH, 08/13/16) Butalbital (Verified Allergy, Intermediate, HIVES, 08/13/16) Clarithromycin (Verified Allergy, Intermediate, RASH, 08/13/16) Dicyclomine (Verified Allergy, Intermediate, HIVES, 08/13/16) HIVES Penicillins (Verified Allergy, Intermediate, RASH, 08/13/16) PT STATES SHE GETS WELTS FROM CIPRO,LEVAQUIN ALLERGY PER DR ROBLES Tetracyclines (Verified Allergy, Intermediate, DOXYCYCLINE-HIVES, 08/13/16) Sulindac (Verified Allergy, Mild, ALLERGY LISTED "CLONDORAL"--HIVES, ) Adhesives (Verified Allergy, Unknown, RASH, DUODERM=RED,ITCHY, 08/13/16) PLASTIC TAPE IS OK!!! DUODERM=RED,ITCHY Metronidazole (Verified Allergy, Unknown, SEIZURE, 08/13/16) Tramadol (Verified Allergy, Unknown, SEIZURES, 08/13/16) Metoclopramide (Verified Adverse Reaction, Severe, SEIZURES, 08/13/16) Blueberry (Verified Adverse Reaction, Mild, STOMACH PAIN, 10/14/16) Furosemide (Verified Adverse Reaction, Unknown, HIVES, 08/13/16) Physical Exam Vital Signs Date Time Temp Pulse Resp B/P (MAP) Pulse Ox O2 Delivery O2 Flow Rate FiO2 11/11/16 16:07 36.4 70 18 114/58 97 11/11/16 14:52 70 18 114/58 97 Room Air 11/11/16 13:30 73 18 137/73 100 11/11/16 11:33 36.4 81 18 132/77 97 Room Air Physical Exam GENERAL: Patient is awake, alert, in no acute distress patient is resting comfortably and showing no signs of anxiety EYES: The conjunctivae are clear. The pupils are round and reactive. EARS, NOSE, MOUTH AND THROAT: Ecchymosis over the face and neck consistent with recent history of fall. The nose is without any evidence of any deformity. Mucous membranes are moist tongue is midline NECK: The neck is nontender and supple. RESPIRATORY: Normal respiratory effort is noted there is no evidence of wheezing rhonchi or rales CARDIOVASCULAR: Regular rate and rhythm noted there no murmurs rubs or gallops normal S1 normal S2 GASTROINTESTINAL: The abdomen is soft. Bowel sounds are present in all quadrants. Abdomen is nontender MUSCULOSKELETAL/EXTREMITIES: Recent surgical site noted over the left shoulder, skin jerri still in place, no erythema, swelling or dehiscence noted. SKIN: There is no obvious evidence of any rash. There are no petechiae, pallor or cyanosis noted. NEUROLOGIC: Patient is awake alert and oriented x3 strength is symmetric patellar reflexes are 2+ bilaterally Medical Decision & Procedures Laboratory Results 11/11/16 12:22 Red Blood Count 2.99, Mean Corpuscular Volume 94.6, Mean Corpuscular Hemoglobin 35.8, Mean Corpuscular Hemoglobin Concent 37.8, Mean Platelet Volume 9.1, Neutrophils (%) (Auto) 57.7, Lymphocytes (%) (Auto) 27.1, Monocytes (%) (Auto) 10.3, Eosinophils (%) (Auto) 3.7, Basophils (%) (Auto) 1.2, Neutrophils # (Auto ) 1.85, Lymphocytes # (Auto) 0.87, Monocytes # (Auto) 0.33, Eosinophils # (Auto ) 0.12, Basophils # (Auto) 0.04 11/11/16 12:22 Test 11/11/16 12:22 11/11/16 13:20 White Blood Count 3.21 K/uL (4.8-10.8) Red Blood Count 2.99 M/uL (4.2-5.4) Hemoglobin 10.7 g/dL (12.0-16.0) Hematocrit 28.3 % (37-47) Mean Corpuscular Volume 94.6 fL (80-100) Mean Corpuscular Hemoglobin 35.8 pg (25-34) Mean Corpuscular Hemoglobin Concent 37.8 g/dl (32-36) Platelet Count 132 K/uL (130-400) Mean Platelet Volume 9.1 fL (7.4-10.4) Neutrophils (%) (Auto) 57.7 % Lymphocytes (%) (Auto) 27.1 % Monocytes (%) (Auto) 10.3 % Eosinophils (%) (Auto) 3.7 % Basophils (%) (Auto) 1.2 % Neutrophils # (Auto) 1.85 K/uL (1.4-6.5) Lymphocytes # (Auto) 0.87 K/uL (1.2-3.4) Monocytes # (Auto) 0.33 K/uL (0.11-0.59) Eosinophils # (Auto) 0.12 K/uL (0-0.5) Basophils # (Auto) 0.04 K/uL (0-0.2) RDW Standard Deviation 53.1 fL (36.4-46.3) RDW Coefficient of Variation 15.3 % (11.5-14.5) Immature Granulocyte % (Auto) 0.0 % Immature Granulocyte # (Auto) 0.00 K/uL (0.00-0.02) Prothrombin Time 12.3 SECONDS (9.0-12.0) Prothromb Time International Ratio 1.1 (0.9-1.1) Activated Partial Thromboplast Time 28.7 SECONDS (21.0-31.0) Partial Thromboplastin Ratio 1.1 Anion Gap 6.0 mmol/L (3-11) Est Creatinine Clear Calc Drug Dose 181.4 ml/min Estimated GFR () 138.5 Estimated GFR (Non- 119.5 BUN/Creatinine Ratio 22.4 (10-20) Calcium Level 7.9 mg/dl (8.5-10.1) Magnesium Level 1.6 mg/dl (1.8-2.4) Total Bilirubin 1.6 mg/dl (0.2-1) Direct Bilirubin 0.6 mg/dl (0-0.2) Aspartate Amino Transf (AST/SGOT) 56 U/L (15-37) Alanine Aminotransferase (ALT/SGPT) 43 U/L (12-78) Alkaline Phosphatase 298 U/L (45-117) Ammonia 68.0 umol/L (11-32) Total Protein 5.6 gm/dl (6.4-8.2) Albumin 2.8 gm/dl (3.4-5.0) Lipase 65 U/L (73-393) Urine Color YELLOW Urine Appearance CLEAR (CLEAR) Urine pH 7.5 (4.5-7.5) Urine Specific [place] 1.017 (1.000-1.030) Urine Protein NEG (NEG) Urine Glucose (UA) NEG (NEG) Urine Ketones NEG (NEG) Urine Occult Blood NEG (NEG) Urine Nitrite NEG (NEG) Urine Bilirubin NEG (NEG) Urine Urobilinogen NEG (NEG) Urine Leukocyte Esterase NEG (NEG) Laboratory results per my review. Medications Administered Medications (Trade) Dose Ordered Sig/Danita Route Start Time Stop Time Status Last Admin Dose Admin Sodium Chloride 1,000 ml @ 999 mls/hr Q1H1M STAT IV 11/11/16 12:03 11/11/16 13:03 DC 11/11/16 12:03 999 MLS/HR Ondansetron HCl (Zofran Inj) 4 mg NOW STAT IV 11/11/16 12:03 11/11/16 12:08 DC 11/11/16 12:32 4 MG Promethazine HCl 12.5 mg/Sodium Chloride 50.5 ml @ 204 mls/hr NOW STAT IV 11/11/16 12:03 11/11/16 12:17 DC 11/11/16 12:32 204 MLS/HR Oxycodone HCl (Roxicodone Immediate Rel Tab) 5 mg NOW STAT PO 11/11/16 12:03 11/11/16 12:08 DC 11/11/16 12:33 5 MG Lactulose (Chronulac Syrup) 30 gm NOW STAT PO 11/11/16 12:03 11/11/16 12:08 DC 11/11/16 12:32 30 GM Oxycodone HCl (Roxicodone Immediate Rel Tab) 5 mg NOW STAT PO 11/11/16 14:19 11/11/16 14:21 DC 11/11/16 14:19 5 MG ED Course 1202: The patient was evaluated in room A12. A complete history and physical examination were performed. 1203: Lactulose 30 gm PO, Oxycodone HCl 5 mg PO, Promethazine HCl 12.5 mg /NSS 50.5 ml @ 204 mls/hr IV, Zofran 4 mg IV, NSS 1000 ml @ 999 mls/hr IV. 1410: Nursing informed me the patient would like more pain medication. 1419: Oxycodone HCl 5 mg PO. 1500: I reevaluated the patient. She is feeling much better. I discussed her results and discharge instructions and she verbalized complete understanding and agreement. Medical Decision Prior records/ancillary studies reviewed. Triage Nursing notes reviewed. The patient's history was concerning for nausea, vomiting, diarrhea, and abdominal pain. Differential diagnosis: Etiologies such as gastroenteritis, food borne illness, infections, appendicitis , diverticulitis, inflammatory bowel disease, obstruction, GI bleed, biliary pathology, as well as others were entertained. The patient is a 50-year-old female who presented to the emergency department from her intermediate for evaluation of nausea vomiting. The patient appears to have vomiting and was unable to keep her medications down. The patient was treated with pain medication as well as antiemetics in the emergency department. I discussed the patient's laboratory results with her. She was encouraged to continue all medications as prescribed and follow-up with her doctor soon as possible. She was also started on a course of antiemetics. Medication Reconcilliation Current Medication List: was personally reviewed by me Blood Pressure Screening Patient's blood pressure: Normal blood pressure Blood pressure disposition: Did not require urgent referral Impression Primary Impression: Nausea & vomiting Additional Impressions: Post-operative pain Hepatic encephalopathy Noncompliance with medication regimen Scribe Attestation The scribe's documentation has been prepared under my direction and personally reviewed by me in its entirety. I confirm that the note above accurately reflects all work, treatment, procedures, and medical decision making performed by me. Departure Information Dispostion Home / Self-Care Prescriptions Ondasetron Odt (ZOFRAN ODT) 4 Mg Tab 4 MG SL Q6H for Nausea, #20 TAB Prov: Hemant Willard, DO 11/11/16 Referrals Paty Otto (PCP) Patient Instructions ED Nausea Vomiting, My [facility] Additional Instructions Continue all medications as prescribed. Follow-up with your family doctor as soon as possible. Problem Qualifiers
[2016-11-11 12:40] LABS: BASO % 1.2 %; BASO ABS # 0.04 K/uL (0-0.2); COMPLETE YES; EOS % 3.7 %; HEMATOCRIT 28.3 % (37-47); LYMPH % 27.1 %; LYMPH ABS # 0.87 K/uL (1.2-3.4); MEAN CELL VOLUME 94.6 fL (80-100); MEAN CORPUSCULAR HEMOGLOBIN 35.8 pg (25-34); MEAN CORPUSCULAR HGB CONC 37.8 g/dl (32-36); MEAN PLATELET VOLUME 9.1 fL (7.4-10.4); MONO % 10.3 %; NEUT % 57.7 %; PLATELET COUNT 132 K/uL (130-400); RED BLOOD COUNT 2.99 M/uL (4.2-5.4); WHITE BLOOD COUNT 3.21 K/uL (4.8-10.8)
[2016-11-11 12:48] LABS: INR 1.1 (0.9-1.1); PARTIAL THROMBOPLASTIN RATIO 1.1; PROTHROMBIN TIME (PATIENT) 12.3 SECONDS (9.0-12.0)
[2016-11-11 12:57] LABS: BUN/CREATININE RATIO 22.4 (10-20); CALCIUM 7.9 mg/dl (8.5-10.1); CREATININE 0.42 mg/dl (0.60-1.20); MAGNESIUM 1.6 mg/dl (1.8-2.4); POTASSIUM 3.6 mmol/L (3.5-5.1)
[2016-11-11 13:45] LABS: URINE APPEARANCE CLEAR (CLEAR); URINE BILIRUBIN NEG (NEG); URINE COLOR YELLOW; URINE NITRITE NEG (NEG); URINE PH 7.5 (4.5-7.5); URINE SPECIFIC GRAVITY 1.017 (1.000-1.030); UROBILINOGEN NEG (NEG); ZZURINE CULT IF INDIC CATH NO
[2016-11-11 13:49] LABS: MANUAL MICROSCOPIC REQUIRED? NO; REVIEW REQ? NO
[2016-11-11] MEDS ORDERED: ONDA4TAB10 SL (14:26)
[2016-11-11 16:07] VITALS: BP 114/58; PULSE 70; TEMP 36.4; O2SAT 97
[2016-11-14 16:35] LABS: TOPIRAMATE (TOPAMAX)**30965 2.4 mcg/mL
[2016-12-25] MEDS ORDERED: KFL500 PO (16:53)
[2016-12-25] MEDS ORDERED: BUME1TAB PO (16:53)
[2016-12-26] MEDS ORDERED: CIPR-255 PO (10:04)
[2017-01-01] MEDS ORDERED: [UNRECOGNIZED DRUG - CODE] PO (07:45)
[2017-01-01] MEDS ORDERED: OXYC1TAB3 PO (07:45)
== END 2016-11-11 15:30 | disposition home or self-care (01) ==
LOC: EDBD 11:21 → C.EDA 11:23
DX: R11.2 Nausea with vomiting, unspecified (principal); G89.18 Other acute postprocedural pain; K72.90 Hepatic failure, unspecified without coma; Z91.14 Patient's other noncompliance with medication regimen; J45.909 Unspecified asthma, uncomplicated; F31.9 Bipolar disorder, unspecified; E11.9 Type 2 diabetes mellitus without complications; G43.909 Migraine, unspecified, not intractable, without status migrainosus; D46.9 Myelodysplastic syndrome, unspecified; K27.9 Peptic ulcer, site unspecified, unspecified as acute or chronic, without hemorrhage or perforation; Z87.01 Personal history of pneumonia (recurrent); K76.6 Portal hypertension; G40.909 Epilepsy, unspecified, not intractable, without status epilepticus; Z82.49 Family history of ischemic heart disease and other diseases of the circulatory system; Z79.4 Long term (current) use of insulin; Z79.899 Other long term (current) drug therapy

== ENCOUNTER → 2016-11-21 | Outpatient (CLI) | payer BC ==
[~2016-11-21] MED LIST changes: +ASCO10003 PO; +BUME1TAB PO; +CARB25TA14 PO; +CIPR-255 PO; +CRAN1TAB6 PO; +KFL500 PO; -LACO50TA PO; +LEVE100021 PO; +LUTE15CA PO; +MIRT30TA2 PO; +MULT-506 PO; +NAPR-998 PO; +ONDA4TAB10 SL; +OXYC1TAB3 PO; +PROM12.57 PO; +RMR15 PO; +SPIR25TA PO; +SUMA100T16 PO; +TOPI25TA99 PO; +TOPI50TA16 PO; +TRIA1SPR4 NAE; +VITA80004 PO; +[UNRECOGNIZED DRUG - CODE] PO; +[UNRECOGNIZED DRUG - CODE] PO
== END ==
LOC: C.LABUPNIT 08:44
PROVIDERS: ATTEND Nurse Practitioner Family
DX: E72.29 Other disorders of urea cycle metabolism (principal); K74.69 Other cirrhosis of liver

== ENCOUNTER 2016-12-13 05:29 | Emergency (ER) | payer BC, OTHER ==
[~2016-12-13] VITALS: Ht 165.1 cm; Wt 92.2 kg
[~2016-12-13 05:29] MED LIST changes: -ASCO10003 PO; -BUME1TAB PO; -CARB25TA12 PO; -CARB25TA14 PO; -CHOL100010 PO; -CIPR-255 PO; -CRAN1TAB6 PO; -KFL500 PO; -LEVE100021 PO; -LUTE15CA PO; -MIRT30TA2 PO; -MULT-506 PO; -NAPR-998 PO; -OXYC1TAB3 PO; -PROM12.57 PO; -RMR15 PO; -SPIR25TA PO; -SUMA100T16 PO; -TOPI25TA99 PO; -TOPI50TA16 PO; -TRIA1SPR4 NAE; -VITA80004 PO; -[UNRECOGNIZED DRUG - CODE] PO; -[UNRECOGNIZED DRUG - CODE] PO
[2016-12-13 05:32] VITALS: TEMP 36.9; Ht 165.1 cm; Wt 92.2 kg
--- NOTE | 2016-12-13 05:41 | EMERGENCY ROOM VISIT NOTE ---
History Report prepared by Broderick: Robert Sandra Under the Supervision of: Dr. Gerri Nieves D.O. First contact with patient: 05:33 Chief Complaint: HEADACHE Stated Complaint: MIGRAINE HEADACHE History of Present Illness The patient is a 50 year old female who presents to the Emergency Room via EMS with complaints of a persistent migraine headache that started yesterday. She says that she has been taking Imitrex for the headache, but it did not help, and she cannot take any more until tomorrow. The patient notes that last time she was here for a migraine, she was given a steroid and it helped. She says that she was able to sleep a little bit tonight. She adds that she was just discharged from [facility] 9 days ago, and was there for a month and a half. The patient states that she was fine the past couple days. She denies any nausea , vomiting, or abdominal pain. Source of History: patient Onset: Yesterday Position: head (headache), other Quality: other (migraine) Timing: other (persistent) Associated Symptoms: No nausea, No vomiting, No abdominal pain Note: No other associated symptoms noted. Review of Systems See HPI for pertinent positives & negatives. A total of 10 systems reviewed and were otherwise negative. 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 (18) Seizure disorder Surgical Problems: (1) H/O nasal septoplasty (2) History of appendectomy (3) History of cholecystectomy (4) History of hysterectomy (5) History of kyphoplasty (6) History of tonsillectomy (7) s/p spinal stimulator placement Family History Depression Hypertension Social History Smoking Status: Never Smoker Alcohol Use: none Drug Use: none Marital Status: Housing Status: lives with significant other Occupation Status: disabled Current/Historical Medications Scheduled Ferrous Sulfate (Ferrous Sulfate), 325 MG PO QPM Insulin Glargine (Toujeo Solostar), 38 UNITS SQ QAM Insulin Lispro (Human) (Humalog Kwikpen), UNITS SC UD Lactulose (Lactulose), 20 GM PO BID Levetiracetam (Levetiracetam), 2,000 MG PO BID Levothyroxine Sodium (Levothyroxine Sodium), 75 MCG PO QAM Magnesium Oxide (Mag-Ox), 400 MG PO TID Mirtazapine (Remeron Soltab), 30 MG PO HS Omeprazole (Prilosec), 20 MG PO QAM Ondasetron Odt (Zofran Odt), 4 MG SL Q6H Oxcarbazepine (Trileptal), 600 MG PO BID Probiotic Product (Probiotic), 1 CAP PO DAILY Ranitidine HCl (Ranitidine HCl), 150 MG PO BID Rifaximin (Xifaxan), 550 MG PO BID Topiramate (Topamax), 50 MG PO BID Topiramate (Topamax ), 25 MG PO BID Triamcinolone Acetonide (Nasal (Nasacort Allergy 24Hr), 1 SPRAY ABRAHAN DAILY Zinc Gluconate (Zinc), 50 MG PO BID Scheduled PRN Albuterol Hfa (Ventolin Hfa), 2-4 PUFFS INH Q6H PRN for Shortness of Breath Epinephrine (Epipen), 0.3 MG IM UD PRN for ALLERGIC REACTION Glucose-Vitamin C (Glucose), 1 CHW PO UD PRN for Hypoglycemia Oxycodone Ir (Roxicodone Ir), 5 MG PO Q8 PRN for Pain Sumatriptan Succinate (Imitrex), 100 MG PO UD PRN for Migraine Allergies Coded Allergies: Amoxicillin (Verified Allergy, Intermediate, HIVES, 12/13/16) Azithromycin (Verified Allergy, Intermediate, HIVES, 12/13/16) Baclofen (Verified Allergy, Intermediate, RASH, 12/13/16) Butalbital (Verified Allergy, Intermediate, HIVES, 12/13/16) Clarithromycin (Verified Allergy, Intermediate, RASH, 12/13/16) Dicyclomine (Verified Allergy, Intermediate, HIVES, 12/13/16) HIVES Penicillins (Verified Allergy, Intermediate, RASH, 12/13/16) PT STATES SHE GETS WELTS FROM CIPRO,LEVAQUIN ALLERGY PER DR ROBLES Tetracyclines (Verified Allergy, Intermediate, DOXYCYCLINE-HIVES, 12/13/16) Sulindac (Verified Allergy, Mild, ALLERGY LISTED "CLONDORAL"--HIVES, ) Adhesives (Verified Allergy, Unknown, RASH, DUODERM=RED,ITCHY, 12/13/16) PLASTIC TAPE IS OK!!! DUODERM=RED,ITCHY Metronidazole (Verified Allergy, Unknown, SEIZURE, 12/13/16) Tramadol (Verified Allergy, Unknown, SEIZURES, 12/13/16) Metoclopramide (Verified Adverse Reaction, Severe, SEIZURES, 12/13/16) Blueberry (Verified Adverse Reaction, Mild, STOMACH PAIN, 12/13/16) Furosemide (Verified Adverse Reaction, Unknown, HIVES, 12/13/16) Physical Exam Vital Signs Date Time Temp Pulse Resp B/P (MAP) Pulse Ox O2 Delivery O2 Flow Rate FiO2 12/13/16 06:41 79 20 140/74 100 Room Air 12/13/16 05:32 36.9 76 18 134/62 100 Room Air Physical Exam HEENT: Head - normocephalic and atraumatic Pupils are equal, round, and reactive to light. Extraocular eye muscles are intact, and sclera are anicteric. Nose - moist nasal mucosa without discharge. Mouth - moist buccal mucosa. Oropharynx is nonerythematous and there is no tonsillar exudate or edema noted. Neck: Supple; no JVD, nuchal rigidity, cervical lymphadenopathy. Heart: Regular rate and rhythm. There is a normal S1 and S2 with no murmurs, clicks, or gallops appreciated. Lungs: Clear to auscultation bilaterally with no wheezes, rales, or rhonchi. Abdomen: Soft, completely nontender, nondistended, with good bowel sounds. There are no palpable pulsatile masses or hepatosplenomegaly. There is no guarding, rigidity, or rebound noted. Extremities: No evidence of cyanosis, clubbing, or edema. There are easily palpable peripheral pulses. Skin: warm and dry with good turgor and no rashes. Medical Decision & Procedures Medications Administered Medications (Trade) Dose Ordered Sig/Danita Route Start Time Stop Time Status Last Admin Dose Admin Dihydroergotamine Mesylate (D.H.E. 45 Inj) 1 mg NOW ONCE IM 12/13/16 05:45 12/13/16 05:46 DC 12/13/16 05:50 1 MG Ketorolac Tromethamine (Toradol Inj) 60 mg NOW STAT IM 12/13/16 06:26 12/13/16 06:27 DC 12/13/16 06:38 60 MG Procedure 0545: Ordered D.H.E. 45 Inj 1 mg IM. ED Course 0535: Past medical records reviewed. The patient was evaluated in room B2. A complete history and physical exam was performed. 0545: Ordered D.H.E. 45 Inj 1 mg IM. 0610: I reevaluated the patient and she is starting to feel better. 0630: Upon reevaluation, the patient still complained of her headache. She was given 60 mg of IM Toradol. 0700: The patient was feeling much better and will be discharged home. Medical Decision The patient is a 50 year old female who presents to the ED with a migraine headache. Differential diagnosis includes tension headache, migraine, dehydration. The patient has long-standing history of headaches. She had previously received DHE with good results. She was given a dose here and relieve her discomfort to some degree. She continued to complain of pain and was given Toradol which relieved migraine. I've asked patient to follow-up with her PCP and neurologist if the migraines are persisting. She was also encouraged to keep herself well-hydrated. Medication Reconcilliation Current Medication List: was personally reviewed by me Blood Pressure Screening Patient's blood pressure: Elevated blood pressure Blood pressure disposition: Elevated BP felt to be situational (due to pain) Impression Primary Impression: Migraine Scribe Attestation The scribe's documentation has been prepared under my direction and personally reviewed by me in its entirety. I confirm that the note above accurately reflects all work, treatment, procedures, and medical decision making performed by me. Departure Information Dispostion Home / Self-Care Referrals Paty Otto (PCP) Patient Instructions [facility] Problem Qualifiers Primary Impression: Migraine Migraine type: unspecified Status migrainosus presence: without status migrainosus Intractability: not intractable Qualified Codes: G43.909 - Migraine, unspecified, not intractable, without status migrainosus
[2016-12-13] MEDS ORDERED: DIHYDROERGOTAMINE MESYLATE 1 MG/ML VIAL IM ONE (05:45)
[2016-12-13] MEDS ORDERED: KETOROLAC TROMETHAMINE 60 MG/2 ML VIAL IM STA (06:26)
[2016-12-13] MEDS ORDERED: INSU1.2I SQ (06:28)
[2016-12-13] MEDS ORDERED: TOPI50TA16 PO (06:30)
[2016-12-13] MEDS ORDERED: TOPI25TA99 PO (06:30)
[2016-12-13] MEDS ORDERED: LEVE100021 PO (06:31)
[2016-12-13] MEDS ORDERED: TRIA1SPR4 NAE (06:33)
[2016-12-13] MEDS ORDERED: SUMA100T16 PO (06:33)
[2016-12-13] MEDS ORDERED: OXYC1TAB3 PO (06:59)
[2016-12-13] MEDS ORDERED: MIRT30TA2 PO (06:59)
[2016-12-13 07:29] VITALS: BP 164/63; PULSE 71; O2SAT 100
[2016-12-14] MEDS ORDERED: VITA80004 PO (13:17)
[2016-12-14] MEDS ORDERED: ASCO10003 PO (13:17)
[2016-12-14] MEDS ORDERED: SPIR25TA PO (13:17)
[2016-12-14] MEDS ORDERED: NAPR-998 PO (13:17)
[2016-12-14] MEDS ORDERED: MULT-506 PO (13:17)
[2016-12-14] MEDS ORDERED: [UNRECOGNIZED DRUG - CODE] PO (13:17)
[2016-12-14] MEDS ORDERED: CARB25TA14 PO (13:17)
[2016-12-14] MEDS ORDERED: CRAN1TAB6 PO (13:17)
[2016-12-14] MEDS ORDERED: LUTE15CA PO (13:17)
[2016-12-25] MEDS ORDERED: KFL500 PO (16:53)
[2016-12-25] MEDS ORDERED: BUME1TAB PO (16:53)
[2016-12-26] MEDS ORDERED: CIPR-255 PO (10:04)
[2017-01-01] MEDS ORDERED: [UNRECOGNIZED DRUG - CODE] PO (07:45)
[2017-01-01] MEDS ORDERED: OXYC1TAB3 PO (07:45)
== END 2016-12-13 07:30 | disposition home or self-care (01) ==
LOC: EDBD 05:29 → C.EDB 05:31
DX: G43.909 Migraine, unspecified, not intractable, without status migrainosus (principal); E11.9 Type 2 diabetes mellitus without complications; F31.9 Bipolar disorder, unspecified; F32.9 Major depressive disorder, single episode, unspecified; J45.909 Unspecified asthma, uncomplicated; K31.84 Gastroparesis; G40.909 Epilepsy, unspecified, not intractable, without status epilepticus; K74.60 Unspecified cirrhosis of liver; K72.90 Hepatic failure, unspecified without coma; Z87.11 Personal history of peptic ulcer disease; Z90.49 Acquired absence of other specified parts of digestive tract; Z90.710 Acquired absence of both cervix and uterus; Z98.890 Other specified postprocedural states; Z79.4 Long term (current) use of insulin; Z79.899 Other long term (current) drug therapy; Z88.0 Allergy status to penicillin; Z88.1 Allergy status to other antibiotic agents; Z88.8 Allergy status to other drugs, medicaments and biological substances; Z91.018 Allergy to other foods; Z91.09 Other allergy status, other than to drugs and biological substances; Z81.8 Family history of other mental and behavioral disorders; Z82.49 Family history of ischemic heart disease and other diseases of the circulatory system

== ENCOUNTER → 2016-12-13 | Outpatient (CLI) | payer BC ==
[~2016-12-13] MED LIST changes: +CARB25TA12 PO; +CHOL100010 PO
[2016-12-13 16:19] LABS: ALT/SGPT 65 U/L (12-78); AST/SGOT 60 U/L (15-37); BLOOD UREA NITROGEN 12 mg/dl (7-18); BUN/CREATININE RATIO 23.1 (10-20); CALCIUM 8.1 mg/dl (8.5-10.1); CARBON DIOXIDE 22 mmol/L (21-32); CHLORIDE 114 mmol/L (98-107); CREATININE 0.53 mg/dl (0.60-1.20); GLUCOSE 87 mg/dl (70-99); POTASSIUM 4.2 mmol/L (3.5-5.1); SODIUM 143 mmol/L (136-145)
[2016-12-13 16:30] LABS: ALB/GLOB RATIO 1.1 (0.9-2); ALKALINE PHOSPHATASE 304 U/L (45-117)
== END | disposition home or self-care (01) ==
LOC: C.LAB 18:14
PROVIDERS: ATTEND Family Medicine
DX: R60.0 Localized edema (principal); E03.9 Hypothyroidism, unspecified; D61.3 Idiopathic aplastic anemia

== ENCOUNTER 2016-12-14 11:22 | Emergency (ER) | payer BC, OTHER ==
[~2016-12-14] VITALS: Ht 165.1 cm; Wt 92.6 kg
[~2016-12-14 11:22] MED LIST changes: +LEVE100021 PO; +MIRT30TA2 PO; +OXYC1TAB3 PO; +SUMA100T16 PO; +TOPI25TA99 PO; +TOPI50TA16 PO; +TRIA1SPR4 NAE
[2016-12-14 11:31] VITALS: TEMP 36.7; Ht 165.1 cm; Wt 92.6 kg
[2016-12-14] MEDS ORDERED: OXYCODONE HCL IR 5 MG TAB (IMMEDIATE RELEASE) PO STA (11:37)
[2016-12-14] MEDS ORDERED: ONDANSETRON 4MG OD TAB PO ONE (11:45)
--- NOTE | 2016-12-14 13:01 | EMERGENCY ROOM VISIT NOTE ---
History Report prepared by Broderick: Vinny Paulino Under the Supervision of: Dr. Hemant Willard D.O. First contact with patient: 11:29 Stated Complaint: LOW SUGAR History of Present Illness The patient is a 50 year old female who presents to the Emergency Room with complaints of persistent hypoglycemia beginning shortly prior to arrival. The patient has a history of insulin dependent type II diabetes. She states that she was getting her nails done when she suddenly began to feel strange. She was found to be hypoglycemic on scene with a blood sugar of 62. The patient was seen in the ED yesterday. She also complains of left arm pain, nausea, an episode of vomiting, and a headache. She recently had surgery on her left arm for which she is on Oxycodone. The patient was given glucose en route which has improved her symptoms. Source of History: patient Onset: Shortly prior to arrival Symptom Intensity: BSG of 62 Quality: other (hypoglycemia) Timing: other (persistent) Modifying Factors (Relieving): other (Glucose) Associated Symptoms: + headache, + nausea, + vomiting (an episode) Note: Additional symptoms: left arm pain. Review of Systems See HPI for pertinent positives & negatives. A total of 10 systems reviewed and were otherwise negative. 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 (18) Seizure disorder Surgical Problems: (1) H/O nasal septoplasty (2) History of appendectomy (3) History of cholecystectomy (4) History of hysterectomy (5) History of kyphoplasty (6) History of tonsillectomy (7) s/p spinal stimulator placement Family History Depression Hypertension Social History Smoking Status: Never Smoker Alcohol Use: none Drug Use: none Marital Status: Housing Status: lives with significant other Occupation Status: disabled Current/Historical Medications Scheduled Ascorbic Acid (Vitamin C), 1,000 MG PO DAILY Carbidopa/Levodopa (Sinemet 25MG/250MG), 1 TAB PO TID Cranberry (Vaccinium Macrocarp (Cranberry), 1 TAB PO TID Ferrous Sulfate (Ferrous Sulfate), 325 MG PO QPM Insulin Glargine (Toujeo Solostar), 38 UNITS SQ QAM Insulin Lispro (Human) (Humalog Kwikpen), UNITS SC UD Lactulose (Lactulose), 20 GM PO BID Lecithin (Cvs Lecithin), 1 CAP PO DAILY Levetiracetam (Levetiracetam), 2,000 MG PO BID Levothyroxine Sodium (Levothyroxine Sodium), 75 MCG PO QAM Lutein-Zeaxanthin (Lutein), 1 CAP PO DAILY Magnesium Oxide (Mag-Ox), 400 MG PO TID Mirtazapine (Remeron Soltab), 30 MG PO HS Multivitamin (Multivitamin), 1 TAB PO DAILY Omeprazole (Prilosec), 20 MG PO QAM Ondasetron Odt (Zofran Odt), 4 MG SL Q6H Oxcarbazepine (Trileptal), 600 MG PO BID Probiotic Product (Probiotic), 1 CAP PO DAILY Ranitidine HCl (Ranitidine HCl), 150 MG PO BID Rifaximin (Xifaxan), 550 MG PO BID Spironolactone (Aldactone), 25 MG PO QAM Topiramate (Topamax), 50 MG PO BID Topiramate (Topamax ), 25 MG PO BID Triamcinolone Acetonide (Nasal (Nasacort Allergy 24Hr), 1 SPRAY ABRAHAN DAILY Vitamin A (Gnp Vitamin A), 8,000 UNITS PO DAILY Zinc Gluconate (Zinc), 50 MG PO BID Scheduled PRN Albuterol Hfa (Ventolin Hfa), 2-4 PUFFS INH Q6H PRN for Shortness of Breath Epinephrine (Epipen), 0.3 MG IM UD PRN for ALLERGIC REACTION Glucose-Vitamin C (Glucose), 1 CHW PO UD PRN for Hypoglycemia Naproxen Sodium-Diphenhydramin (Aleve Pm 220-25 mg), 1 TAB PO QPM PRN for Pain Oxycodone Ir (Roxicodone Ir), 5 MG PO Q8 PRN for Pain Sumatriptan Succinate (Imitrex), 100 MG PO UD PRN for Migraine Allergies Coded Allergies: Amoxicillin (Verified Allergy, Intermediate, HIVES, 12/14/16) Azithromycin (Verified Allergy, Intermediate, HIVES, 12/14/16) Baclofen (Verified Allergy, Intermediate, RASH, 12/14/16) Butalbital (Verified Allergy, Intermediate, HIVES, 12/14/16) Clarithromycin (Verified Allergy, Intermediate, RASH, 12/14/16) Dicyclomine (Verified Allergy, Intermediate, HIVES, 12/14/16) HIVES Penicillins (Verified Allergy, Intermediate, RASH, 12/14/16) PT STATES SHE GETS WELTS FROM CIPRO,LEVAQUIN ALLERGY PER DR ROBLES Tetracyclines (Verified Allergy, Intermediate, DOXYCYCLINE-HIVES, 12/14/16) Sulindac (Verified Allergy, Mild, ALLERGY LISTED "CLONDORAL"--HIVES, ) Adhesives (Verified Allergy, Unknown, RASH, DUODERM=RED,ITCHY, 12/14/16) PLASTIC TAPE IS OK!!! DUODERM=RED,ITCHY Metronidazole (Verified Allergy, Unknown, SEIZURE, 12/14/16) Tramadol (Verified Allergy, Unknown, SEIZURES, 12/14/16) Metoclopramide (Verified Adverse Reaction, Severe, SEIZURES, 12/14/16) Blueberry (Verified Adverse Reaction, Mild, STOMACH PAIN, 12/14/16) Furosemide (Verified Adverse Reaction, Unknown, HIVES, 12/14/16) Physical Exam Vital Signs Date Time Temp Pulse Resp B/P (MAP) Pulse Ox O2 Delivery O2 Flow Rate FiO2 12/14/16 13:39 83 18 117/90 100 12/14/16 11:36 91 12/14/16 11:31 36.7 93 20 160/98 100 Room Air Physical Exam GENERAL: Patient is awake, alert, and in no acute distress. Patient is resting comfortably and showing no signs of anxiety EYES: The conjunctivae are clear. The pupils are round and reactive. EARS, NOSE, MOUTH AND THROAT: The nose is without any evidence of any deformity. Mucous membranes are moist tongue is midline NECK: The neck is nontender and supple. RESPIRATORY: Normal respiratory effort is noted there is no evidence of wheezing rhonchi or rales CARDIOVASCULAR: Regular rate and rhythm noted there no murmurs rubs or gallops normal S1 normal S2 GASTROINTESTINAL: The abdomen is soft. Bowel sounds are present in all quadrants. Abdomen is nontender MUSCULOSKELETAL/EXTREMITIES: There is no evidence of gross deformity full range of motion is noted in the hips and shoulders. Recent surgical site noted in the LUE. No swelling, erythema or dehiscence. Pain to palpation, but sutures are intact. SKIN: There is no obvious evidence of any rash. There are no petechiae, pallor or cyanosis noted. NEUROLOGIC: Patient is awake alert and oriented x3 strength is symmetric patellar reflexes are 2+ bilaterally Medical Decision & Procedures Laboratory Results Test 12/14/16 13:14 Bedside Glucose 177 mg/dl (70-90) Laboratory results per my review. Medications Administered Medications (Trade) Dose Ordered Sig/Danita Route Start Time Stop Time Status Last Admin Dose Admin Oxycodone HCl (Roxicodone Immediate Rel Tab) 5 mg NOW STAT PO 12/14/16 11:37 12/14/16 11:38 DC 12/14/16 11:46 5 MG Ondansetron HCl (Zofran Odt) 4 mg ONE ONCE PO 12/14/16 11:45 12/14/16 11:46 DC 12/14/16 11:45 4 MG Prochlorperazine Maleate (Compazine Tab) 5 mg NOW ONCE PO 12/14/16 13:30 12/14/16 13:31 DC 12/14/16 13:37 5 MG ED Course 1134: The patient was evaluated in room A2. A complete history and physical examination were performed. 1137: Ordered Roxicodone Immediate Rel Tab 5 mg PO. 1145: Ordered Zofran Odt 4 mg PO. 1305: Upon reevaluation, the patient is resting comfortably. I discussed the results and treatment plan with her. She verbalized agreement of the treatment plan. The patient was discharged home. Medical Decision Differential diagnosis: Etiologies such as vasovagal event, infection, hypoglycemia, electrolyte abnormalities, cardiac sources, intracerebral event, toxicologic, neurologic, as well as others were entertained. Nursing notes reviewed. The patient is a 50-year-old female who I have taken care of in the past who presented to the emergency department for altered mental status. She was found have hypoglycemia prior to arrival. She admits that she has not eaten since breakfast. She was given oral glucose prior to arrival and her symptoms significantly improved. The patient was given a diet in the emergency department. Her blood sugar was reevaluated multiple times. She also complains of left upper extremity pain from surgery. She was given nausea and pain medication for this. She also complains of a headache but is neurologically intact and has had multiple neuro imaging in our facility in the past. I do not feel she requires a CAT scan of the head at this time. She was reevaluated multiple times. She was encouraged to continue all medications as prescribed and follow-up with her primary care physician is possible. Otherwise she was encouraged to rest and avoid any strenuous activity and return to the emergency department immediately if symptoms change worsen or the need arises. Medication Reconcilliation Current Medication List: was personally reviewed by me Blood Pressure Screening Patient's blood pressure: Elevated blood pressure Blood pressure disposition: Referred to PCP Impression Primary Impression: Hypoglycemia Scribe Attestation The scribe's documentation has been prepared under my direction and personally reviewed by me in its entirety. I confirm that the note above accurately reflects all work, treatment, procedures, and medical decision making performed by me. Departure Information Dispostion Home / Self-Care Referrals No Doctor, Assigned (PCP) Forms HOME CARE DOCUMENTATION FORM, IMPORTANT VISIT INFORMATION, WORK / SCHOOL INSTRUCTIONS Patient Instructions Hypoglycemia, My [facility] Additional Instructions Continue all medications as prescribed. Call your family to schedule a follow-up appointment.
[2016-12-14] MEDS ORDERED: [UNRECOGNIZED DRUG - CODE] PO (13:17)
[2016-12-14] MEDS ORDERED: LUTE15CA PO (13:17)
[2016-12-14] MEDS ORDERED: CRAN1TAB6 PO (13:17)
[2016-12-14] MEDS ORDERED: NAPR-998 PO (13:17)
[2016-12-14] MEDS ORDERED: SPIR25TA PO (13:17)
[2016-12-14] MEDS ORDERED: CARB25TA14 PO (13:17)
[2016-12-14] MEDS ORDERED: MULT-506 PO (13:17)
[2016-12-14] MEDS ORDERED: VITA80004 PO (13:17)
[2016-12-14] MEDS ORDERED: ASCO10003 PO (13:17)
[2016-12-14] MEDS ORDERED: PROCHLORPERAZINE MALEATE 5 MG TAB PO ONE (13:30)
[2016-12-14 13:39] VITALS: BP 117/90; PULSE 83; O2SAT 100
[2016-12-25] MEDS ORDERED: BUME1TAB PO (16:53)
[2016-12-25] MEDS ORDERED: KFL500 PO (16:53)
[2016-12-26] MEDS ORDERED: CIPR-255 PO (10:04)
[2017-01-01] MEDS ORDERED: OXYC1TAB3 PO (07:45)
[2017-01-01] MEDS ORDERED: [UNRECOGNIZED DRUG - CODE] PO (07:45)
== END 2016-12-14 13:41 | disposition home or self-care (01) ==
LOC: EDBD 11:22 → C.EDA 11:24
DX: E11.649 Type 2 diabetes mellitus with hypoglycemia without coma (principal); J45.909 Unspecified asthma, uncomplicated; F31.9 Bipolar disorder, unspecified; K74.60 Unspecified cirrhosis of liver; E11.43 Type 2 diabetes mellitus with diabetic autonomic (poly)neuropathy; R01.1 Cardiac murmur, unspecified; G43.909 Migraine, unspecified, not intractable, without status migrainosus; E87.0 Hyperosmolality and hypernatremia; F32.9 Major depressive disorder, single episode, unspecified; K27.9 Peptic ulcer, site unspecified, unspecified as acute or chronic, without hemorrhage or perforation; Z87.01 Personal history of pneumonia (recurrent); G40.909 Epilepsy, unspecified, not intractable, without status epilepticus; Z82.49 Family history of ischemic heart disease and other diseases of the circulatory system; Z79.4 Long term (current) use of insulin; Z79.899 Other long term (current) drug therapy

== ENCOUNTER 2016-12-18 11:30 | Inpatient (IN) | payer BC, OTHER ==
[~2016-12-18] VITALS: Ht 165.1 cm; Wt 94.8 kg
[~2016-12-18 11:30] MED LIST changes: -ACET-1047 PO; +ASCO10003 PO; +CARB25TA14 PO; +CRAN1TAB6 PO; -FLNIN/ NAE; +LUTE15CA PO; -Levetiracetam PO; -MTR/400 PO; +MULT-506 PO; +NAPR-998 PO; -RIZA1TAB11 PO; +SPIR25TA PO; -SYMIN160 INH; -TOPI25TA10 PO; +VITA80004 PO; +[UNRECOGNIZED DRUG - CODE] PO
[2016-12-18] MEDS ORDERED: SODIUM CHLORIDE 0.9% 1000ML 500 ML IV STA (12:04)
[2016-12-18] MEDS ORDERED: ONDANSETRON INJ 2 MG/ML 2 ML VIAL IV STA (12:04)
[2016-12-18] MEDS ORDERED: SODIUM CHLORIDE 0.9% 1000ML 1,000 ML IV STA (12:04)
--- NOTE | 2016-12-18 12:11 | EMERGENCY ROOM VISIT NOTE ---
History Report prepared by Broderick: Robert Sandra Under the Supervision of: Dr. Aiden Nelson M.D. First contact with patient: 12:00 Chief Complaint: OTHER COMPLAINT Stated Complaint: VOMITING, ILLNESS History of Present Illness The patient is a 51 year old female who presents to the Emergency Room via EMS with complaints of episodes of vomiting that started 3 days ago. The patient states that she has had 3 vomiting episodes this morning. She says that her vomiting is due to high ammonia levels, and that this is due her not giving her enough lactulose. The patient notes that she does get vomiting episodes when her ammonia levels are high. She states that her has been giving her the rest of her medications as prescribed. The patient adds that she has been feeling more confused, in addition to some chills. She says that she has not had a bowel movement in 3 days, and she notes no history of constipation. The patient denies any fevers, diarrhea, or urinary symptoms. She notes that she has lost some weight recently. Source of History: patient Onset: 3 days ago Position: other (global - vomiting) Symptom Intensity: 3 vomiting episodes this morning Timing: other (episodes) Associated Symptoms: + chills, No fevers, No diarrhea, No urinary symptoms Note: Associated symptoms: Confusion. No bowel movement in 3 days. Review of Systems See HPI for pertinent positives & negatives. A total of 10 systems reviewed and were otherwise negative. 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 (18) Seizure disorder Surgical Problems: (1) H/O nasal septoplasty (2) History of appendectomy (3) History of cholecystectomy (4) History of hysterectomy (5) History of kyphoplasty (6) History of tonsillectomy (7) s/p spinal stimulator placement Family History Depression Hypertension Social History Smoking Status: Never Smoker Alcohol Use: none Drug Use: none Marital Status: Housing Status: lives with significant other Occupation Status: disabled Current/Historical Medications Scheduled Ascorbic Acid (Vitamin C), 1,000 MG PO DAILY Carbidopa/Levodopa (Sinemet 25MG/250MG), 1 TAB PO TID Cranberry (Vaccinium Macrocarp (Cranberry), 1 TAB PO TID Ferrous Sulfate (Ferrous Sulfate), 325 MG PO QPM Fluticasone Propionate (Fluticasone Propionate), 1 SPRAY ABRAHAN DAILY Insulin Glargine (Toujeo Solostar), 38 UNITS SQ QAM Insulin Lispro (Human) (Humalog Kwikpen), UNITS SC UD Lactulose (Lactulose), 20 GM PO BID Lecithin (Cvs Lecithin), 1 CAP PO DAILY Levetiracetam (Levetiracetam), 2,000 MG PO BID Levothyroxine Sodium (Levothyroxine Sodium), 75 MCG PO QAM Lutein-Zeaxanthin (Lutein), 1 CAP PO DAILY Magnesium Oxide (Mag-Ox), 400 MG PO TID Mirtazapine (Mirtazapine), 1 TAB PO HS Multivitamin (Multivitamin), 1 TAB PO DAILY Omeprazole (Prilosec), 20 MG PO QAM Ondasetron Odt (Zofran Odt), 4 MG SL Q6H Oxcarbazepine (Trileptal), 600 MG PO BID Probiotic Product (Probiotic), 1 CAP PO DAILY Ranitidine HCl (Ranitidine HCl), 150 MG PO BID Rifaximin (Xifaxan), 550 MG PO BID Spironolactone (Aldactone), 25 MG PO QAM Topiramate (Topamax), 50 MG PO BID Topiramate (Topamax ), 25 MG PO BID Triamcinolone Acetonide (Nasal (Nasacort Allergy 24Hr), 1 SPRAY ABRAHAN DAILY Vitamin A (Gnp Vitamin A), 8,000 UNITS PO DAILY Zinc Gluconate (Zinc), 50 MG PO BID Scheduled PRN Albuterol Hfa (Ventolin Hfa), 2-4 PUFFS INH Q6H PRN for Shortness of Breath Epinephrine (Epipen), 0.3 MG IM UD PRN for ALLERGIC REACTION Glucose-Vitamin C (Glucose), 1 CHW PO UD PRN for Hypoglycemia Naproxen Sodium-Diphenhydramin (Aleve Pm 220-25 mg), 1 TAB PO QPM PRN for Pain Oxycodone Ir (Roxicodone Ir), 5 MG PO Q8 PRN for Pain Promethazine (Phenergan ), 1 TAB PO BID PRN for Nausea or Vomiting Sumatriptan Succinate (Imitrex), 100 MG PO UD PRN for Migraine Allergies Coded Allergies: Amoxicillin (Verified Allergy, Intermediate, HIVES, 12/18/16) Azithromycin (Verified Allergy, Intermediate, HIVES, 12/18/16) Baclofen (Verified Allergy, Intermediate, RASH, 12/18/16) Butalbital (Verified Allergy, Intermediate, HIVES, 12/18/16) Clarithromycin (Verified Allergy, Intermediate, RASH, 12/18/16) Dicyclomine (Verified Allergy, Intermediate, HIVES, 12/18/16) HIVES Penicillins (Verified Allergy, Intermediate, RASH, 12/18/16) PT STATES SHE GETS WELTS FROM CIPRO,LEVAQUIN ALLERGY PER DR ROBLES Tetracyclines (Verified Allergy, Intermediate, DOXYCYCLINE-HIVES, 12/18/16) Sulindac (Verified Allergy, Mild, ALLERGY LISTED "CLONDORAL"--HIVES, ) Adhesives (Verified Allergy, Unknown, RASH, DUODERM=RED,ITCHY, 12/18/16) PLASTIC TAPE IS OK!!! DUODERM=RED,ITCHY Metronidazole (Verified Allergy, Unknown, SEIZURE, 12/18/16) Tramadol (Verified Allergy, Unknown, SEIZURES, 12/18/16) Metoclopramide (Verified Adverse Reaction, Severe, SEIZURES, 12/18/16) Blueberry (Verified Adverse Reaction, Mild, STOMACH PAIN, 12/18/16) Furosemide (Verified Adverse Reaction, Unknown, HIVES, 12/18/16) Physical Exam Vital Signs Date Time Temp Pulse Resp B/P (MAP) Pulse Ox O2 Delivery O2 Flow Rate FiO2 12/18/16 13:51 84 18 122/62 100 Room Air 12/18/16 12:47 74 18 138/82 100 Room Air 12/18/16 12:37 79 12/18/16 11:36 36.8 87 18 131/68 100 Room Air Physical Exam GENERAL: Patient is in no acute distress. HEENT: No acute trauma, normocephalic atraumatic, mucous membranes moist, no nasal congestion, no scleral icterus. NECK: No stridor, no adenopathy, no meningismus, trachea is midline. LUNGS: Clear to auscultation bilaterally, no wheeze, no rhonchi, breath sounds equal. HEART: Subtle systolic murmur with regular rate and rhythm. ABDOMEN: Soft, nontender, bowel sounds positive, no hernias, no peritonitis. EXTREMITIES: No cyanosis or edema, full range of motion of all the joints without pain or difficulty, no signs for acute trauma. NEUROLOGIC: Oriented x 3, no acute motor or sensory deficits, no focal weakness. SKIN: No rash, no jaundice, no diaphoresis. Medical Decision & Procedures Laboratory Results 12/18/16 12:25 Red Blood Count 3.00, Mean Corpuscular Volume 97.3, Mean Corpuscular Hemoglobin 35.0, Mean Corpuscular Hemoglobin Concent 36.0, Mean Platelet Volume 10.2, Neutrophils (%) (Auto) 60.0, Lymphocytes (%) (Auto) 22.9, Monocytes (%) (Auto) 13.3, Eosinophils (%) (Auto) 2.6, Basophils (%) (Auto) 1.2, Neutrophils # (Auto ) 2.07, Lymphocytes # (Auto) 0.79, Monocytes # (Auto) 0.46, Eosinophils # (Auto ) 0.09, Basophils # (Auto) 0.04 12/18/16 12:25 Test 12/18/16 12:25 12/18/16 12:30 White Blood Count 3.45 K/uL (4.8-10.8) Red Blood Count 3.00 M/uL (4.2-5.4) Hemoglobin 10.5 g/dL (12.0-16.0) Hematocrit 29.2 % (37-47) Mean Corpuscular Volume 97.3 fL (80-100) Mean Corpuscular Hemoglobin 35.0 pg (25-34) Mean Corpuscular Hemoglobin Concent 36.0 g/dl (32-36) Platelet Count 86 K/uL (130-400) Mean Platelet Volume 10.2 fL (7.4-10.4) Neutrophils (%) (Auto) 60.0 % Lymphocytes (%) (Auto) 22.9 % Monocytes (%) (Auto) 13.3 % Eosinophils (%) (Auto) 2.6 % Basophils (%) (Auto) 1.2 % Neutrophils # (Auto) 2.07 K/uL (1.4-6.5) Lymphocytes # (Auto) 0.79 K/uL (1.2-3.4) Monocytes # (Auto) 0.46 K/uL (0.11-0.59) Eosinophils # (Auto) 0.09 K/uL (0-0.5) Basophils # (Auto) 0.04 K/uL (0-0.2) RDW Standard Deviation 55.8 fL (36.4-46.3) RDW Coefficient of Variation 15.7 % (11.5-14.5) Immature Granulocyte % (Auto) 0.0 % Immature Granulocyte # (Auto) 0.00 K/uL (0.00-0.02) Platelet Estimate DECREASED Anion Gap 8.0 mmol/L (3-11) Est Creatinine Clear Calc Drug Dose 133.4 ml/min Estimated GFR () 125.1 Estimated GFR (Non- 108.0 BUN/Creatinine Ratio 23.2 (10-20) Calcium Level 8.9 mg/dl (8.5-10.1) Total Bilirubin 1.4 mg/dl (0.2-1) Aspartate Amino Transf (AST/SGOT) 50 U/L (15-37) Alanine Aminotransferase (ALT/SGPT) 44 U/L (12-78) Alkaline Phosphatase 270 U/L (45-117) Ammonia 173.0 umol/L (11-32) Total Creatine Kinase 54 U/L (26-192) Total Protein 6.0 gm/dl (6.4-8.2) Albumin 3.1 gm/dl (3.4-5.0) Globulin 2.9 gm/dl (2.5-4.0) Albumin/Globulin Ratio 1.1 (0.9-2) Thyroid Stimulating Hormone (TSH) 2.030 uIu/ml (0.300-4.500) Free Thyroxine 0.91 ng/dl (0.80-1.60) Urine Color DK YELLOW Urine Appearance TURBID (CLEAR) Urine pH >= 9.0 (4.5-7.5) Urine Specific [place] 1.024 (1.000-1.030) Urine Protein NEG (NEG) Urine Glucose (UA) NEG (NEG) Urine Ketones NEG (NEG) Urine Occult Blood NEG (NEG) Urine Nitrite NEG (NEG) Urine Bilirubin NEG (NEG) Urine Urobilinogen NEG (NEG) Urine Leukocyte Esterase TRACE (NEG) Urine WBC (Auto) 0 /hpf (0-5) Urine RBC (Auto) 0-4 /hpf (0-4) Urine Hyaline Casts (Auto) 1-5 /lpf (0-5) Urine Epithelial Cells (Auto) 5-10 /lpf (0-5) Urine Bacteria (Auto) NEG (NEG) Laboratory results reviewed by me. Medications Administered Medications (Trade) Dose Ordered Sig/Danita Route Start Time Stop Time Status Last Admin Dose Admin Sodium Chloride 500 ml @ 999 mls/hr Q31M STAT IV 12/18/16 12:04 12/18/16 12:34 DC 12/18/16 12:45 999 MLS/HR Sodium Chloride 1,000 ml @ 200 mls/hr Q5H STAT IV 12/18/16 12:04 12/18/16 17:03 12/18/16 13:02 200 MLS/HR Ondansetron HCl (Zofran Inj) 4 mg NOW STAT IV 12/18/16 12:04 12/18/16 12:09 DC 12/18/16 12:45 4 MG Ketorolac Tromethamine (Toradol Inj) 30 mg NOW STAT IV 12/18/16 12:45 12/18/16 12:47 DC 12/18/16 12:54 30 MG Promethazine HCl 25 mg/Sodium Chloride 51 ml @ 204 mls/hr NOW STAT IV 12/18/16 13:05 12/18/16 13:19 DC 12/18/16 13:16 204 MLS/HR Lactulose (Chronulac Syrup) 30 gm NOW STAT PO 12/18/16 13:07 12/18/16 13:09 DC 12/18/16 13:17 30 GM ECG Indication: vomiting Rate (beats per minute): 81 Rhythm: normal sinus Findings: no acute ischemic change, no ectopy ED Course 1204: Ordered Zofran Inj 4 mg IV, NSS 1000 ml @ 200 mls/hr IV, NSS 500 ml @ 999 mls/hr IV. 1207: The patient was evaluated in room A11B. A complete history and physical exam was performed. 1245: Ordered Toradol Inj 30 mg IV. 1305: Ordered Promethazine HCl 25 mg/Sodium Chloride 51 ml @ 204 mls/hr IV. 1307: Ordered Chronulac Syrup 30 gm PO. 1333: Upon reexamination the patient is resting comfortably. I discussed results and treatment plan with the patient. She verbalizes agreement and understanding. The patient will be evaluated for further management. 1355: I discussed the patient with Dr. Kim CHAPIN hospitalist - he will evaluate the patient for further treatment. Medical Decision Differential diagnosis includes but is not limited to high ammonia level, liver failure, dehydration, viral illness, electrolyte imbalance, UTI, anemia. The patient has a low white count, platelet count and hemoglobin, this is baseline for her. Renal panel testing does not show significant electrolyte abnormalities, there was no kidney failure. Ammonia level was quite high at over 170. LFTs were mildly elevated consistent with her liver disease. Urinalysis does not show infection. The patient appeared to be in a euthyroid state. EKG showed a sinus rhythm, no acute ischemia. The patient presents with some vomiting and confusion. She has liver disease with a history of high ammonia levels. Today's ammonia value is quite elevated. The patient was given IV saline, IV Zofran and IV Phenergan. She received IV Toradol. She feels improved. Given the markedly elevated ammonia level, given her confusion and vomiting, admission/observation was felt warranted. I did order for a 30 g oral dose of lactulose. I spoke to the patient and case management. The on-call hospitalist was consulted. Medication Reconcilliation Current Medication List: was personally reviewed by me Blood Pressure Screening Patient's blood pressure: Elevated blood pressure Blood pressure disposition: Elevated BP felt to be situational Consults Time Called: 1340 Consulting Physician: Dr. Kim CHAPIN hospitalist Returned Call: 1355 I discussed the patient with Dr. Kim CHAPIN hospitalist - he will evaluate the patient for further treatment. Impression Primary Impression: Change in mental status Additional Impressions: Vomiting Hyperammonemia Scribe Attestation The scribe's documentation has been prepared under my direction and personally reviewed by me in its entirety. I confirm that the note above accurately reflects all work, treatment, procedures, and medical decision making performed by me. Departure Information Dispostion Being Evaluated By Hospitalist Referrals Olena Little DO (PCP) Patient Instructions My [facility] Problem Qualifiers Primary Impression: Change in mental status Altered mental status type: unspecified Qualified Codes: R41.82 - Altered mental status, unspecified Additional Impressions: Vomiting Vomiting type: unspecified Vomiting Intractability: non-intractable Nausea presence: unspecified Qualified Codes: R11.10 - Vomiting, unspecified
[2016-12-18] MEDS ORDERED: KETOROLAC TROMETHAMINE 30 MG/ML VIAL IV STA (12:45)
[2016-12-18 12:54] LABS: HEMATOCRIT 29.2 % (37-47); MEAN CELL VOLUME 97.3 fL (80-100); WHITE BLOOD COUNT 3.45 K/uL (4.8-10.8)
[2016-12-18] MEDS ORDERED: PROMETHAZINE HCL INJ 25 MG in SODIUM CHLORIDE 0.9% 50ML 50 ML IV STA (13:05)
[2016-12-18] MEDS ORDERED: LACTULOSE SYRUP 20 GM/30 ML UDC PO STA (13:07)
[2016-12-18 13:12] LABS: BUN/CREATININE RATIO 23.2 (10-20); CALCIUM 8.9 mg/dl (8.5-10.1); CREATININE 0.56 mg/dl (0.60-1.20); POTASSIUM 4.2 mmol/L (3.5-5.1)
[2016-12-18 13:14] LABS: URINE APPEARANCE TURBID (CLEAR); URINE BILIRUBIN NEG (NEG); URINE COLOR DK YELLOW; URINE NITRITE NEG (NEG); URINE PH >= 9.0 (4.5-7.5); URINE SPECIFIC GRAVITY 1.024 (1.000-1.030); UROBILINOGEN NEG (NEG); ZZURINE CULT IF INDIC CATH NO
[2016-12-18 13:17] LABS: MANUAL MICROSCOPIC REQUIRED? NO; REVIEW REQ? NO
[2016-12-18 13:22] LABS: ALB/GLOB RATIO 1.1 (0.9-2); THYROID STIMULATING HORMONE 2.03 uIu/ml (0.300-4.500)
[2016-12-18 13:25] LABS: MEAN PLATELET VOLUME 10.2 fL (7.4-10.4); PLATELET COUNT 86 K/uL (130-400)
[2016-12-18 13:26] LABS: BASO % 1.2 %; BASO ABS # 0.04 K/uL (0-0.2); COMPLETE YES; EOS % 2.6 %; LYMPH % 22.9 %; LYMPH ABS # 0.79 K/uL (1.2-3.4); MONO % 13.3 %; PLT ESTIMATE DECREASED
[2016-12-18] MEDS ORDERED: RMR15 PO (13:59)
[2016-12-18] MEDS ORDERED: PROM12.57 PO (13:59)
[2016-12-18] MEDS ORDERED: FLNIN/ NAE (13:59)
[2016-12-18] MEDS ORDERED: NAPROXEN SODIUM PO PRN (14:15)
[2016-12-18] MEDS ORDERED: DIPHENHYDRAMINE PO PRN (14:15)
[2016-12-18] MEDS ORDERED: GLUCOSE 5 GM CHEWABLE TABLET PO PRN (14:15)
[2016-12-18] MEDS ORDERED: ALUMINUM/MAGNESIUM/SIMETH (MAALOX MAX) 30 ML UDC PO PRN (14:15)
[2016-12-18] MEDS ORDERED: MAGNESIUM HYDROXIDE SUSP 30 ML UDC PO PRN (14:15)
[2016-12-18] MEDS ORDERED: POLYETHYLENE (MIRALAX) 17 GM PACK PO PRN (14:15)
[2016-12-18] MEDS ORDERED: EPINEPHRINE ADULT AUTO-INJECT 0.3 MG SYR IM PRN (14:15)
[2016-12-18] MEDS ORDERED: IV FLUIDS COMPLETED PRN (14:45)
[2016-12-18] MEDS: PROMETHAZINE HCL 25 MG TAB PO PRN (15:47)
[2016-12-18] MEDS: OXYCODONE HCL IR 5 MG TAB (IMMEDIATE RELEASE) PO PRN (17:12)
[2016-12-18] MEDS ORDERED: LACTULOSE SYRUP 30 GM/45 ML UDP PO ONE (17:30)
[2016-12-18 17:45] VITALS: BP 158/82; PULSE 79; TEMP 36.7; O2SAT 98
--- NOTE | 2016-12-18 17:57 | DIAGNOSTIC IMAGING REPORT ---
KUB CLINICAL HISTORY: Nausea, vomiting, constipation. COMPARISON STUDY: 05/06/2016 FINDINGS: There is no conventional radiographic evidence of fecal impaction. There is gas present within large and small bowel loops. There are no transition zones indicate bowel obstruction. There are surgical clips within the right upper quadrant consistent with a prior cholecystectomy. There are food products present within the stomach. IMPRESSION: No evidence of bowel obstruction. No conventional radiographic evidence of fecal impaction. Electronically signed by: Bran Hernandez M.D. 12/18/2016 5:56 PM Dictated Date/Time: 12/18/2016 5:54 PM
--- NOTE | 2016-12-18 18:02 | History and Physical ---
History & Physical Date & Time of Service: Dec 18, 2016 at 17:56 Chief Complaint: Vomiting, Hyperammonemia Primary Care Physician: Olena Little, Past Medical/Surgical History Medical Problems: (1) Asthma Status: Chronic (2) Bipol I, Rec Epis (Or Current) Depressed, Unspecified Status: Chronic (3) Cirrhosis Permanent Comment: from nonalcoholic fatty liver disease Status: Chronic (4) Diab Ashley Wo Comp Type Ii Or Nos/Not Uncontrolled Status: Chronic (5) Diabetes Status: Chronic (6) Diabetic gastroparesis Status: Chronic (7) Heart murmur Status: Chronic (8) History of hepatic encephalopathy Status: Chronic (9) Major depressive disorder with psychotic features Permanent Comment: with previous suicide attempts Status: Chronic (10) Migraines Status: Chronic (11) Myelodysplastic syndrome Status: Chronic (12) Pancytopenia Status: Chronic (13) Peptic ulcer disease Status: Chronic (14) Portal Hypertension Status: Chronic (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 Status: Chronic (16) Seizure disorder Permanent Comment: with pseudoseizures Status: Chronic Surgical Problems: (1) H/O nasal septoplasty Status: Chronic (2) History of appendectomy Status: Chronic (3) History of cholecystectomy Status: Chronic (4) History of hysterectomy Status: Chronic (5) History of kyphoplasty Permanent Comment: lumbar Status: Chronic (6) History of tonsillectomy Status: Chronic (7) s/p spinal stimulator placement Status: Chronic Family History Depression Hypertension Social History Smoking Status: Never Smoker Drug Use: none Marital Status: Housing status: lives with family Occupational Status: disabled Immunizations History of Influenza Vaccine: Yes Influenza Vaccine Date: Feb 02, 2013 History of Tetanus Vaccine?: utd Tetanus Immunization Date: Jun 11, 2008 History of Pneumococcal: SEE LAST PACKET Pneumococcal Date: Nov 13, 2008 History of Hepatitis B Vaccine: Unknown Hepatitis Immunization Date: Jan 12, 1996 Multi-Drug Resistant Organisms History of MDRO: No Allergies Coded Allergies: Amoxicillin (Verified Allergy, Intermediate, HIVES, 12/18/16) Azithromycin (Verified Allergy, Intermediate, HIVES, 12/18/16) Baclofen (Verified Allergy, Intermediate, RASH, 12/18/16) Butalbital (Verified Allergy, Intermediate, HIVES, 12/18/16) Clarithromycin (Verified Allergy, Intermediate, RASH, 12/18/16) Dicyclomine (Verified Allergy, Intermediate, HIVES, 12/18/16) HIVES Penicillins (Verified Allergy, Intermediate, RASH, 12/18/16) PT STATES SHE GETS WELTS FROM CIPRO,LEVAQUIN ALLERGY PER DR ROBLES Tetracyclines (Verified Allergy, Intermediate, DOXYCYCLINE-HIVES, 12/18/16) Sulindac (Verified Allergy, Mild, ALLERGY LISTED "CLONDORAL"--HIVES, ) Adhesives (Verified Allergy, Unknown, RASH, DUODERM=RED,ITCHY, 12/18/16) PLASTIC TAPE IS OK!!! DUODERM=RED,ITCHY Metronidazole (Verified Allergy, Unknown, SEIZURE, 12/18/16) Tramadol (Verified Allergy, Unknown, SEIZURES, 12/18/16) Metoclopramide (Verified Adverse Reaction, Severe, SEIZURES, 12/18/16) Blueberry (Verified Adverse Reaction, Mild, STOMACH PAIN, 12/18/16) Furosemide (Verified Adverse Reaction, Unknown, HIVES, 12/18/16) Home Medications Scheduled Ascorbic Acid (Vitamin C), 1,000 MG PO DAILY Carbidopa/Levodopa (Sinemet 25MG/250MG), 1 TAB PO TID Cranberry (Vaccinium Macrocarp (Cranberry), 1 TAB PO TID Ferrous Sulfate (Ferrous Sulfate), 325 MG PO QPM Fluticasone Propionate (Fluticasone Propionate), 1 SPRAY ABRAHAN DAILY Insulin Glargine (Toujeo Solostar), 38 UNITS SQ QAM Insulin Lispro (Human) (Humalog Kwikpen), UNITS SC UD Lactulose (Lactulose), 20 GM PO BID Lecithin (Cvs Lecithin), 1 CAP PO DAILY Levetiracetam (Levetiracetam), 2,000 MG PO BID Levothyroxine Sodium (Levothyroxine Sodium), 75 MCG PO QAM Lutein-Zeaxanthin (Lutein), 1 CAP PO DAILY Magnesium Oxide (Mag-Ox), 400 MG PO TID Mirtazapine (Mirtazapine), 1 TAB PO HS Multivitamin (Multivitamin), 1 TAB PO DAILY Omeprazole (Prilosec), 20 MG PO QAM Ondasetron Odt (Zofran Odt), 4 MG SL Q6H Oxcarbazepine (Trileptal), 600 MG PO BID Probiotic Product (Probiotic), 1 CAP PO DAILY Ranitidine HCl (Ranitidine HCl), 150 MG PO BID Rifaximin (Xifaxan), 550 MG PO BID Spironolactone (Aldactone), 25 MG PO QAM Topiramate (Topamax), 50 MG PO BID Topiramate (Topamax ), 25 MG PO BID Triamcinolone Acetonide (Nasal (Nasacort Allergy 24Hr), 1 SPRAY ABRAHAN DAILY Vitamin A (Gnp Vitamin A), 8,000 UNITS PO DAILY Zinc Gluconate (Zinc), 50 MG PO BID Scheduled PRN Albuterol Hfa (Ventolin Hfa), 2-4 PUFFS INH Q6H PRN for Shortness of Breath Epinephrine (Epipen), 0.3 MG IM UD PRN for ALLERGIC REACTION Glucose-Vitamin C (Glucose), 1 CHW PO UD PRN for Hypoglycemia Naproxen Sodium-Diphenhydramin (Aleve Pm 220-25 mg), 1 TAB PO QPM PRN for Pain Oxycodone Ir (Roxicodone Ir), 5 MG PO Q8 PRN for Pain Promethazine (Phenergan ), 1 TAB PO BID PRN for Nausea or Vomiting Sumatriptan Succinate (Imitrex), 100 MG PO UD PRN for Migraine Physical Exam Vital Signs Date Time Temp Pulse Resp B/P (MAP) Pulse Ox O2 Delivery O2 Flow Rate FiO2 12/18/16 17:45 36.7 79 18 158/82 (107) 98 Room Air 12/18/16 16:15 77 18 116/88 98 12/18/16 14:39 82 18 115/92 100 Room Air 12/18/16 13:51 84 18 122/62 100 Room Air 12/18/16 12:47 74 18 138/82 100 Room Air 12/18/16 12:37 79 12/18/16 11:36 36.8 87 18 131/68 100 Room Air Diagnostics Laboratory Results Results Past 24 Hours Test 12/18/16 12:25 12/18/16 12:30 Range/Units White Blood Count 3.45 4.8-10.8 K/uL Red Blood Count 3.00 4.2-5.4 M/uL Hemoglobin 10.5 12.0-16.0 g/dL Hematocrit 29.2 37-47 % Mean Corpuscular Volume 97.3 80-100 fL Mean Corpuscular Hemoglobin 35.0 25-34 pg Mean Corpuscular Hemoglobin Concent 36.0 32-36 g/dl Platelet Count 86 130-400 K/uL Mean Platelet Volume 10.2 7.4-10.4 fL Neutrophils (%) (Auto) 60.0 % Lymphocytes (%) (Auto) 22.9 % Monocytes (%) (Auto) 13.3 % Eosinophils (%) (Auto) 2.6 % Basophils (%) (Auto) 1.2 % Neutrophils # (Auto) 2.07 1.4-6.5 K/uL Lymphocytes # (Auto) 0.79 1.2-3.4 K/uL Monocytes # (Auto) 0.46 0.11-0.59 K/uL Eosinophils # (Auto) 0.09 0-0.5 K/uL Basophils # (Auto) 0.04 0-0.2 K/uL RDW Standard Deviation 55.8 36.4-46.3 fL RDW Coefficient of Variation 15.7 11.5-14.5 % Immature Granulocyte % (Auto) 0.0 % Immature Granulocyte # (Auto) 0.00 0.00-0.02 K/uL Platelet Estimate DECREASED Sodium Level 140 136-145 mmol/L Potassium Level 4.2 3.5-5.1 mmol/L Chloride Level 109 98-107 mmol/L Carbon Dioxide Level 23 21-32 mmol/L Anion Gap 8.0 3-11 mmol/L Blood Urea Nitrogen 13 7-18 mg/dl Creatinine 0.56 0.60-1.20 mg/dl Est Creatinine Clear Calc Drug Dose 133.4 ml/min Estimated GFR () 125.1 Estimated GFR (Non- 108.0 BUN/Creatinine Ratio 23.2 10-20 Random Glucose 161 70-99 mg/dl Calcium Level 8.9 8.5-10.1 mg/dl Total Bilirubin 1.4 0.2-1 mg/dl Aspartate Amino Transf (AST/SGOT) 50 15-37 U/L Alanine Aminotransferase (ALT/SGPT) 44 12-78 U/L Alkaline Phosphatase 270 45-117 U/L Ammonia 173.0 11-32 umol/L Total Creatine Kinase 54 26-192 U/L Total Protein 6.0 6.4-8.2 gm/dl Albumin 3.1 3.4-5.0 gm/dl Globulin 2.9 2.5-4.0 gm/dl Albumin/Globulin Ratio 1.1 0.9-2 Thyroid Stimulating Hormone (TSH) 2.030 0.300-4.500 uIu/ml Free Thyroxine 0.91 0.80-1.60 ng/dl Urine Color DK YELLOW Urine Appearance TURBID CLEAR Urine pH >= 9.0 4.5-7.5 Urine Specific Sprague 1.024 1.000-1.030 Urine Protein NEG NEG Urine Glucose (UA) NEG NEG Urine Ketones NEG NEG Urine Occult Blood NEG NEG Urine Nitrite NEG NEG Urine Bilirubin NEG NEG Urine Urobilinogen NEG NEG Urine Leukocyte Esterase TRACE NEG Urine WBC (Auto) 0 0-5 /hpf Urine RBC (Auto) 0-4 0-4 /hpf Urine Hyaline Casts (Auto) 1-5 0-5 /lpf Urine Epithelial Cells (Auto) 5-10 0-5 /lpf Urine Bacteria (Auto) NEG NEG Impression Assessment and Plan admit #[id number] VTE Prophylaxis VTE Risk Assessment Done? Y/N: Yes Risk Level: Moderate
[2016-12-18] MEDS: INSULIN ASPART 100 UNITS/ML 3 ML PEN SC SCH ×2 (18:23→20:50)
[2016-12-18] MEDS: SODIUM CHLOR 0.45% + 20MEQ KCL 1,000 ML IV SCH (18:25)
[2016-12-18] MEDS: ONDANSETRON 4MG OD TAB SL SCH (18:29)
--- NOTE | 2016-12-18 18:36 | HISTORY & PHYSICAL EXAMINATION ---
DATE OF ADMISSION: 12/18/2016 ADMISSION HISTORY AND PHYSICAL CHIEF COMPLAINT: Nausea and vomiting. HISTORY OF PRESENT ILLNESS: The patient is a pleasant 51-year-old female well known to me from multiple previous episodes of care, outpatient and inpatient and in the [facility]. She was here through November [facility] and over that time, she noted starting to have worsening nausea and vomiting. She then ceased having any bowel movements and then things continued to get worse. She notes that just before all this happened she had a Remeron increased from 15 mg to 30 mg and then after that, her PCP started her on 25 mg of spironolactone daily, she believes the nausea and vomiting started after both of these medications changes, although at different times discussing it is not 100% clear this is the case, but at the end of the discussion when moving to clarify the order of events, she strongly believes she had Remeron increased and spironolactone started and then after that the nausea and vomiting started. First, she did not pay much attention to it as a degree of nausea, vomiting is not abnormal to her, but by then Friday it was starting to get worse, Friday was last she had had a bowel movement and she continued to have worsening nausea and vomiting since then. REVIEW OF SYSTEMS: Negative for cough, shortness of breath, chest pain, fevers, chills, or sweats. Negative for any urinary symptoms. Negative for diarrhea. Review of systems is otherwise negative except for as above. PAST MEDICAL HISTORY: Includes cirrhosis, probably secondary to nonalcoholic steatohepatitis as well as medication side effect, type 2 diabetes with gastroparesis, bipolar, depression, migraines, myelodysplasia, peptic ulcer disease, portal hypertension, seizures and pseudoseizures, Parkinson's, hypothyroidism and asthma. PAST SURGICAL HISTORY: Includes nasoseptoplasty, appendectomy, cholecystectomy, hysterectomy, lumbar kyphoplasty, tonsillectomy, spinal nerve stimulator placement, port placement in the right chest. FAMILY HISTORY: Includes depression, hypertension. SOCIAL HISTORY: She is a never smoker, no alcohol. She is . She predominantly lives with her who is her primary hand molder, although recently she is also spent more and more time and nursing homes. ALLERGIES: INCLUDE AMOXICILLIN, ZITHROMAX, BACLOFEN, BUTALBITAL, CLARITHROMYCIN, DICYCLOMINE, PENICILLIN, TETRACYCLINE, SULINDAC, ADHESIVES, METRONIDAZOLE, TRAMADOL, METOCLOPRAMIDE, LASIX, BLUEBERRIES AND ORANGE PULP. HOME MEDICATIONS: Very extensive and include albuterol, vitamin C, Sinemet, cranberry, EpiPen p.r.n., iron sulfate, fluticasone nasal spray, glucose gel, Toujeo 38 units daily, Humalog at meals, lactulose 20 grams b.i.d., lecithin daily, Keppra 2000 b.i.d., Synthroid 75 mcg daily, Lutein daily, Mag-Ox t.i.d., Remeron increased to 30 mg at bedtime, multivitamin daily, Naprosyn with diphenhydramine p.r.n., Prilosec 20 mg daily, Zofran p.r.n., Trileptal 600 mg b.i.d., oxycodone 5 q. 8 hours p.r.n., probiotic daily, Phenergan b.i.d. p.r.n. nausea, Zantac 150 mg b.i.d., Xifaxan 550 b.i.d., Aldactone 25 mg daily, Imitrex 100 mg p.r.n. migraine, Topamax 75 mg b.i.d., Nasacort daily, Vitamin A 8000 units daily, and zinc 50 mg b.i.d. PHYSICAL EXAMINATION: VITAL SIGNS: Temperature 36.8, pulse 87, respiratory rate 18, blood pressure 131/68, pulse ox 100% on room air. GENERAL: She is awake, alert, oriented x3; actually is awake and alert and clear headed as I think I have seen her in years. Appears fatigued, no acute distress. HEENT: Normocephalic, atraumatic. Mucous membranes fairly moist to maybe slightly dry. CARDIOVASCULAR: Regular without rubs, murmurs, or gallops. LUNGS: Clear to auscultation bilaterally. No rales, rhonchi, or wheezes. Good effort. ABDOMEN: Soft, nondistended, nontender, no masses or organomegaly. EXTREMITIES: Without cyanosis, clubbing or edema. No calf tenderness. SKIN: Shows no rashes, no pallor or icterus. NEUROLOGIC: Shows cranial nerves II-XII to be grossly intact with the exception of some minor strabismus that is chronic. Gross motor and sensory are intact. SKIN: Shows no rashes, no pallor or icterus. MENTAL STATE: Shows good recent and remote recall. Normal mood and affect. MUSCULOSKELETAL: Yields no gross lesions. LABS AND DIAGNOSTICS: CBC with a white count of 3.45, hemoglobin 10.5, platelets 86. Complete metabolic panel with sodium 140, potassium 4.2, chloride 109, CO2 23, BUN 13, creatinine 0.56, calcium 8.9, glucose 161. Total bili 1.4, AST of 50, ALT 44, alkaline phosphatase 270; ammonia 173, which is up from her baseline. CK 54, total protein 6, albumin 3.1. TSH 2.03 with a free T4 0.91. Urinalysis dark yellow, turbid, pH greater than 9, specific gravity 1.024, leukocyte esterase trace, 5-10 epithelial cells. ASSESSMENT AND PLAN: 1. Intractable nausea and vomiting. She relates this to her high ammonia, but really I suspect the high ammonia is more because the nausea and vomiting has probably gotten her unable to be taking her lactulose and therefore has gotten to the way of her not having bowel movements. It is unclear and seems most likely that she has gotten constipated plus or minus even a potential degree of impaction as the most likely the less but still likely would be spironolactone causing her dehydration leading to the constipation, less likely still would be simply medication side effect of spironolactone in the least likely but possible given the timing would be medication side effect to the increased dose of the Remeron. At this point in time, will check a KUB, her abdomen exam is benign except for maybe some mild left-sided tenderness without any guarding, rebound or rigidity and so will check an x-ray to try to assess if there is any greater fecal load than her exam indicates, otherwise will manage with more aggressive lactulose plus or minus MiraLax. If need be can obviously add an enema or disimpact and will not change her spironolactone and Remeron at this point in time. If she continues to have nausea and vomiting after adequate bowel movement or there is not a significant fecal load noted at all, then will need to cease the spironolactone, obviously also be giving her IV fluids given the dehydration seems to be at play whether it is spironolactone induced nausea, vomiting induced or both. 2. Elevated ammonia, see above. Probably relates to her hepatic encephalopathy without having any bowel movements slightly. 3. Cirrhosis. Continue supportive care or otherwise as above. 4. Pancytopenia related to cirrhosis as above. 5. Diabetes. Her last A1c was 4.1 in August and even the last time it was even in the diabetic range was 2013. We will try to scale back on her insulins to protect her from iatrogenic hypoglycemia 6. Deep venous thrombosis prophylaxis. Pharmacologic contraindicated due to her thrombocytopenia, mechanical prophylaxis of dubious benefit and possible harm. 7. Seizure disorder. Continue her anticonvulsants. 8. Bipolar. Continue her home meds. MTDD
[2016-12-18 19:22] VITALS: BP 158/82; PULSE 79; TEMP 36.7; Ht 165.1 cm; Wt 94.8 kg
[2016-12-18] MEDS: SUMATRIPTAN SUCC TAB 100 MG TAB PO PRN (20:23)
[2016-12-18] MEDS: FERROUS SULFATE 325 MG TAB PO SCH (20:24)
[2016-12-18] MEDS: RANITIDINE HCL 150 MG TAB PO SCH (20:25)
[2016-12-18] MEDS: CARBIDOPA/LEVODOPA 25-250 1 EA TAB PO SCH (20:25)
[2016-12-18] MEDS: NAPROXEN 250 MG TAB PO PRN (20:26)
[2016-12-18] MEDS: LEVETIRACETAM 500 MG TAB PO SCH (20:27)
[2016-12-18] MEDS: MAGNESIUM OXIDE 400 MG TAB PO SCH (20:28)
[2016-12-18] MEDS: TOPIRAMATE 25 MG TAB PO SCH (20:29)
[2016-12-18] MEDS: OXCARBAZEPINE 150 MG TAB PO SCH (20:29)
[2016-12-18] MEDS: RIFAXIMIN TAB 550 MG TAB PO SCH (20:30)
[2016-12-18] MEDS: LACTULOSE SYRUP 30 GM/45 ML UDP PO SCH (20:31)
[2016-12-18] MEDS: MIRTAZAPINE TAB 15 MG TAB PO SCH (20:41)
[2016-12-18] MEDS ORDERED: INFLUENZA VIRUS QUAD VACCINE 0.5 ML SYR IM. ONE (21:00)
[2016-12-18] MEDS ORDERED: NON-FORMULARY MEDICATION (Cranberry (Vaccinium Macrocarp (Cranberry) 1 TAB) PO SCH (21:00)
[2016-12-18] MEDS ORDERED: INFLUENZA ADMINISTRATION CHARGE ONE (21:00)
[2016-12-18] MEDS ORDERED: TOPIRAMATE 25 MG TAB PO SCH (21:00)
[2016-12-18] MEDS ORDERED: MIRTAZAPINE TAB 15 MG TAB PO SCH (21:00)
[2016-12-18] MEDS ORDERED: NON-FORMULARY MEDICATION (Zinc Gluconate (Zinc) 50 MG) PO SCH (21:00)
[2016-12-18 23:17] VITALS: BP 146/83; PULSE 80; TEMP 36.5; O2SAT 100
[2016-12-19] MEDS: ONDANSETRON 4MG OD TAB SL SCH ×5 (05:23→23:50)
[2016-12-19] MEDS: LEVOTHYROXINE 75 MCG TAB PO SCH (05:26)
[2016-12-19] MEDS: SODIUM CHLOR 0.45% + 20MEQ KCL 1,000 ML IV SCH ×2 (05:28→19:51)
[2016-12-19] MEDS: OXYCODONE HCL IR 5 MG TAB (IMMEDIATE RELEASE) PO PRN ×2 (05:32→19:04)
[2016-12-19 07:21] VITALS: BP 120/74; PULSE 81; TEMP 36.6; O2SAT 99
[2016-12-19] MEDS: INSULIN ASPART 100 UNITS/ML 3 ML PEN SC SCH ×4 (08:34→20:35)
[2016-12-19] MEDS: INSULIN GLARGINE SOLOSTAR 100 UNITS/ML 3 ML PEN SC SCH ×2 (08:35→20:39)
[2016-12-19] MEDS: LACTOBACILLUS ACIDOPHILUS (FLORANEX) TAB PO SCH (08:50)
[2016-12-19] MEDS: LACTULOSE SYRUP 30 GM/45 ML UDP PO SCH ×3 (08:51→20:30)
[2016-12-19] MEDS: ASCORBIC ACID 500 MG TAB PO SCH (08:52)
[2016-12-19] MEDS: SPIRONOLACTONE 25 MG TAB PO SCH (08:52)
[2016-12-19] MEDS: LEVETIRACETAM 500 MG TAB PO SCH (08:52)
[2016-12-19] MEDS: MAGNESIUM OXIDE 400 MG TAB PO SCH ×3 (08:52→20:34)
[2016-12-19] MEDS: MULTIVITAMIN TAB PO SCH (08:52)
[2016-12-19] MEDS: OXCARBAZEPINE 150 MG TAB PO SCH ×2 (08:52→20:32)
[2016-12-19] MEDS: RIFAXIMIN TAB 550 MG TAB PO SCH ×2 (08:53→20:34)
[2016-12-19] MEDS: RANITIDINE HCL 150 MG TAB PO SCH ×2 (08:53→20:31)
[2016-12-19] MEDS: PANTOprazole SOD 40 MG TAB PO SCH (08:53)
[2016-12-19] MEDS: CARBIDOPA/LEVODOPA 25-250 1 EA TAB PO SCH ×2 (08:53→13:42)
[2016-12-19] MEDS: FLUTICASONE PROPIONATE NA SPR 16 GM BTL NAE SCH (08:54)
[2016-12-19] MEDS: TRIAMCINOLONE ACET NASAL SPRAY 10.8ML BTL NAE SCH (08:55)
[2016-12-19] MEDS ORDERED: INSULIN GLARGINE SOLOSTAR 100 UNITS/ML 3 ML PEN SC SCH (09:00)
[2016-12-19] MEDS ORDERED: LECITHIN PO SCH (09:00)
[2016-12-19] MEDS ORDERED: NON-FORMULARY MEDICATION (Lutein-Zeaxanthin (Lutein) 1 CAP) PO SCH (09:00)
[2016-12-19] MEDS ORDERED: VITAMIN A 8000 UNIT PO SCH (09:00)
[2016-12-19] MEDS: SUMATRIPTAN SUCC TAB 100 MG TAB PO PRN ×2 (11:10→19:04)
[2016-12-19] MEDS: TOPIRAMATE 25 MG TAB PO SCH ×2 (11:10→20:33)
[2016-12-19] MEDS ORDERED: NURSING VERBAL MED ORDER ONE ×2 (14:00→22:15)
[2016-12-19 14:56] VITALS: BP 111/75; PULSE 83; TEMP 36.8; O2SAT 100
--- NOTE | 2016-12-19 17:29 | Progress Note ---
Subjective Date of Service: Dec 19, 2016. Subjective Patient was seen in her room this morning was eating breakfast and appearing quite in her normal state she says she feels slightly weak but otherwise almost normal having no persistent nausea vomiting and no persistent diarrhea although he did resume her lactulose therapy Problem List Medical Problems: (1) Acute bronchitis Status: Acute (2) Acute hepatic encephalopathy Status: Acute (3) Alkaline phosphatase elevation Status: Acute (4) Back pain Status: Acute (5) Bradycardia Status: Acute (6) Breakthrough seizure Status: Acute (7) Burn Status: Acute (8) Change in mental status Status: Acute (9) Change in mental status Status: Acute (10) Change in mental status Status: Acute (11) Chronic low back pain Status: Acute (12) Closed head injury Status: Acute (13) Dehydration Status: Acute (14) Dizziness Status: Acute (15) Facial laceration Status: Acute (16) Fall Status: Acute (17) Fall Status: Acute (18) Fatigue Status: Acute (19) Hemorrhoid Status: Acute (20) Hepatic encephalopathy Status: Acute (21) Hepatic encephalopathy Status: Acute (22) Hepatic encephalopathy Status: Acute (23) Hepatic encephalopathy Status: Acute (24) Hepatic encephalopathy Status: Acute (25) Hepatic encephalopathy Status: Acute (26) Hepatic encephalopathy Status: Acute (27) Hepatic encephalopathy Status: Acute (28) Hepatic encephalopathy Status: Acute (29) Hyperammonemia Status: Acute (30) Hyperammonemia Status: Acute (31) Hyperammonemia Status: Acute (32) Hyperammonemia Status: Acute (33) Hyperammonemia Status: Acute (34) Hypocalcemia Status: Acute (35) Hypocalcemia Status: Acute (36) Hypokalemia Status: Acute (37) Hypomagnesemia Status: Acute (38) Increased ammonia level Status: Acute (39) Left foot pain Status: Acute (40) Leukopenia Status: Acute (41) Low back pain Status: Acute (42) Migraine Status: Acute (43) Nausea & vomiting Status: Acute (44) Noncompliance with medication regimen Status: Acute (45) Pain in pelvis Status: Acute (46) Pancytopenia Status: Acute (47) Post-operative pain Status: Acute (48) Right ear pain Status: Acute (49) Right groin pain Status: Acute (50) Right hip pain Status: Acute (51) Right upper lobe pneumonia Status: Acute (52) RUQ abdominal pain Status: Acute (53) Vomiting Status: Acute (54) Weakness Status: Acute (55) Weakness Status: Acute (56) Weakness Status: Acute (57) Weakness Status: Acute Review of Systems Constitutional: + weakness, No fever, No chills Respiratory: No cough, No sputum Abdomen: No pain, No nausea, No diarrhea, No constipation Objective Vital Signs Date Time Temp Pulse Resp B/P (MAP) Pulse Ox O2 Delivery O2 Flow Rate FiO2 12/19/16 16:10 Room Air 12/19/16 14:56 36.8 83 18 111/75 (87) 100 Room Air 12/19/16 07:23 Room Air 12/19/16 07:21 36.6 81 18 120/74 (89) 99 Room Air 12/19/16 00:00 Room Air 12/18/16 23:17 36.5 80 20 146/83 (104) 100 Room Air 12/18/16 19:22 36.7 79 18 158/82 Room Air 12/18/16 17:45 36.7 79 18 158/82 (107) 98 Room Air Physical Exam General Appearance: WD/WN Eyes: PERRL, EOMI ENT: hearing grossly normal, pharynx normal Respiratory/Chest: chest non-tender, lungs clear, normal breath sounds Cardiovascular: regular rate, rhythm, no murmur Abdomen: normal bowel sounds, non tender, soft Neurologic/Psychiatric: alert, oriented x 3 Laboratory Results Last 24 Hours Test 12/19/16 05:14 12/19/16 07:27 12/19/16 11:14 12/19/16 16:11 Ammonia 51.0 umol/L Bedside Glucose 121 mg/dl 236 mg/dl 130 mg/dl Assessment and Plan 51-year-old female here with hepatic encephalopathy presented with gastrointestinal symptoms and elevated ammonia which is resolved with reinstitution of her normal home meds Back encephalopathy maintain lactulose recheck an ammonia level in the morning on a regular diet Cirrhosis. Continue supportive care or otherwise as above. Pancytopenia this is been chronic/mild and felt has been related to cirrhosis Diabetes. Her last A1c was 4.1 in August of very loose sliding scale be employed Deep venous thrombosis prophylaxis. Pharmacologic contraindicated due to her thrombocytopenia, Seizure disorder. Continue her anticonvulsants. Continue Keppra and Trileptal , I believe her last stay her Sinemet was held we will hold it now and discuss with neurology Bipolar. Continue her home meds continue Remeron.
[2016-12-19] MEDS: PROMETHAZINE HCL 25 MG TAB PO PRN (20:02)
[2016-12-19] MEDS: LEVETIRACETAM 1000 MG PO SCH (20:30)
[2016-12-19] MEDS: FERROUS SULFATE 325 MG TAB PO SCH (20:31)
[2016-12-19] MEDS: MIRTAZAPINE TAB 15 MG TAB PO SCH (20:34)
[2016-12-19] MEDS: ONDANSETRON INJ 2 MG/ML 2 ML VIAL IV PRN (20:39)
[2016-12-19] MEDS ORDERED: LEVETIRACETAM 1000 MG PO SCH (21:00)
[2016-12-19 22:58] VITALS: BP 137/79; PULSE 76; TEMP 36.7; O2SAT 98
[2016-12-19] MEDS: PROMETHAZINE HCL INJ 25 MG in SODIUM CHLORIDE 0.9% 50ML 50 ML IV PRN (23:35)
[2016-12-20 00:25] VITALS: BP 114/68; PULSE 75; TEMP 36.8; O2SAT 98
[2016-12-20 02:17] VITALS: TEMP 36.7
[2016-12-20] MEDS: ONDANSETRON 4MG OD TAB SL SCH ×4 (05:22→23:39)
[2016-12-20] MEDS: SUMATRIPTAN SUCC TAB 100 MG TAB PO PRN ×2 (05:22→21:32)
[2016-12-20] MEDS: LEVOTHYROXINE 75 MCG TAB PO SCH (05:22)
[2016-12-20 06:06] LABS: HEMATOCRIT 24.9 % (37-47); MEAN CELL VOLUME 95.8 fL (80-100); MEAN CORPUSCULAR HGB CONC 36.5 g/dl (32-36); WHITE BLOOD COUNT 3.29 K/uL (4.8-10.8)
[2016-12-20 06:15] LABS: PLATELET COUNT 75 K/uL (130-400)
[2016-12-20 06:28] LABS: BUN/CREATININE RATIO 23.3 (10-20); CALCIUM 7.1 mg/dl (8.5-10.1); CREATININE 0.57 mg/dl (0.60-1.20); POTASSIUM 4.2 mmol/L (3.5-5.1)
[2016-12-20 08:12] VITALS: BP 120/72; PULSE 73; TEMP 37; O2SAT 94
[2016-12-20] MEDS: ONDANSETRON INJ 2 MG/ML 2 ML VIAL IV PRN ×2 (08:57→22:36)
[2016-12-20] MEDS: OXYCODONE HCL IR 5 MG TAB (IMMEDIATE RELEASE) PO PRN ×2 (08:58→17:34)
[2016-12-20] MEDS: FLUTICASONE PROPIONATE NA SPR 16 GM BTL NAE SCH (08:59)
[2016-12-20] MEDS ORDERED: INSULIN GLARGINE SOLOSTAR 100 UNITS/ML 3 ML PEN SC SCH (09:00)
[2016-12-20] MEDS: TRIAMCINOLONE ACET NASAL SPRAY 10.8ML BTL NAE SCH (09:00)
[2016-12-20] MEDS: SODIUM CHLOR 0.45% + 20MEQ KCL 1,000 ML IV SCH ×2 (09:03→22:34)
[2016-12-20] MEDS: LEVETIRACETAM 1000 MG PO SCH ×2 (09:04→20:48)
[2016-12-20] MEDS: MULTIVITAMIN TAB PO SCH (09:04)
[2016-12-20] MEDS: LACTOBACILLUS ACIDOPHILUS (FLORANEX) TAB PO SCH (09:05)
[2016-12-20] MEDS: OXCARBAZEPINE 150 MG TAB PO SCH ×2 (09:05→20:50)
[2016-12-20] MEDS: TOPIRAMATE 25 MG TAB PO SCH ×2 (09:06→20:49)
[2016-12-20] MEDS: ASCORBIC ACID 500 MG TAB PO SCH (09:06)
[2016-12-20] MEDS: RIFAXIMIN TAB 550 MG TAB PO SCH ×2 (09:07→20:51)
[2016-12-20] MEDS: MAGNESIUM OXIDE 400 MG TAB PO SCH ×3 (09:07→20:48)
[2016-12-20] MEDS: PANTOprazole SOD 40 MG TAB PO SCH (09:08)
[2016-12-20] MEDS: SPIRONOLACTONE 25 MG TAB PO SCH (09:08)
[2016-12-20] MEDS: RANITIDINE HCL 150 MG TAB PO SCH ×2 (09:08→20:51)
[2016-12-20] MEDS: LACTULOSE SYRUP 30 GM/45 ML UDP PO SCH ×3 (09:09→20:47)
[2016-12-20] MEDS: INSULIN ASPART 100 UNITS/ML 3 ML PEN SC SCH ×2 (09:17→11:54)
[2016-12-20] MEDS: INSULIN GLARGINE SOLOSTAR 100 UNITS/ML 3 ML PEN SC SCH (09:18)
--- NOTE | 2016-12-20 13:00 | Gastrointestinal Consultation ---
Gastrointestinal Consultation Date of Consultation: Dec 20, 2016 Attending Physician: Krystal Consulting Physician: Khanh Reason for Consultation: nausea, vomiting History of Present Illness Patient is a 51 year old female w/ history of gastroparesis, NAFLD cirrhosis, hepatic encephalopathy admitted to [facility] for hepatic encephalopathy, nausea, vomiting and constipation. Pt was seen and evaluated at the request of Dr. Rice, chart reviewed. Pt tells me she has been having nausea and vomiting worse over the past week, she associates this is worse after eating and that the often feels full throughout the day even with minimal PO intake. She tells me she can have a few bites of food and feel full. Vomiting resolves her symptoms. She has known gastroparesis, does not follow gastroparetic diet. Per hotel staff member, refused lactulose last night. Mentating clearly and at baseline. Nursing staff tells me her nausea was especially bad this AM after eating 100% of her tray and narcotics for pain. KUB: No evidence of bowel obstruction. No conventional radiographic evidence of fecal impaction. Past Medical/Surgical History Medical Problems: (1) Acute bronchitis Status: Acute (2) Acute hepatic encephalopathy Status: Acute (3) Alkaline phosphatase elevation Status: Acute (4) Back pain Status: Acute (5) Bradycardia Status: Acute (6) Breakthrough seizure Status: Acute (7) Burn Status: Acute (8) Change in mental status Status: Acute (9) Change in mental status Status: Acute (10) Change in mental status Status: Acute (11) Chronic low back pain Status: Acute (12) Closed head injury Status: Acute (13) Dehydration Status: Acute (14) Dizziness Status: Acute (15) Facial laceration Status: Acute (16) Fall Status: Acute (17) Fall Status: Acute (18) Fatigue Status: Acute (19) Hemorrhoid Status: Acute (20) Hepatic encephalopathy Status: Acute (21) Hepatic encephalopathy Status: Acute (22) Hepatic encephalopathy Status: Acute (23) Hepatic encephalopathy Status: Acute (24) Hepatic encephalopathy Status: Acute (25) Hepatic encephalopathy Status: Acute (26) Hepatic encephalopathy Status: Acute (27) Hepatic encephalopathy Status: Acute (28) Hepatic encephalopathy Status: Acute (29) Hyperammonemia Status: Acute (30) Hyperammonemia Status: Acute (31) Hyperammonemia Status: Acute (32) Hyperammonemia Status: Acute (33) Hyperammonemia Status: Acute (34) Hypocalcemia Status: Acute (35) Hypocalcemia Status: Acute (36) Hypokalemia Status: Acute (37) Hypomagnesemia Status: Acute (38) Increased ammonia level Status: Acute (39) Left foot pain Status: Acute (40) Leukopenia Status: Acute (41) Low back pain Status: Acute (42) Migraine Status: Acute (43) Nausea & vomiting Status: Acute (44) Noncompliance with medication regimen Status: Acute (45) Pain in pelvis Status: Acute (46) Pancytopenia Status: Acute (47) Post-operative pain Status: Acute (48) Right ear pain Status: Acute (49) Right groin pain Status: Acute (50) Right hip pain Status: Acute (51) Right upper lobe pneumonia Status: Acute (52) RUQ abdominal pain Status: Acute (53) Vomiting Status: Acute (54) Weakness Status: Acute (55) Weakness Status: Acute (56) Weakness Status: Acute (57) Weakness Status: Acute Past Medical History: T2DM, gastroparesis, bipolar disorder, depression, chronic migraines, seizures, Parkinson's, hypothyroidism, NAFLD cirrhosis Past Surgical History: EGD, nasal septoplasty, appendectomy, cholecystectomy, hysterectomy, tonsillectomy, spinal stimulator placement Family History Depression Hypertension Social History Smoking Status: Unknown if Ever Smoked Alcohol Use: none Drug Use: none Marital Status: Housing Status: lives with significant other Occupation Status: disabled Allergies Coded Allergies: Amoxicillin (Verified Allergy, Intermediate, HIVES, 12/18/16) Azithromycin (Verified Allergy, Intermediate, HIVES, 12/18/16) Baclofen (Verified Allergy, Intermediate, RASH, 12/18/16) Butalbital (Verified Allergy, Intermediate, HIVES, 12/18/16) Clarithromycin (Verified Allergy, Intermediate, RASH, 12/18/16) Dicyclomine (Verified Allergy, Intermediate, HIVES, 12/18/16) HIVES Penicillins (Verified Allergy, Intermediate, RASH, 12/18/16) PT STATES SHE GETS WELTS FROM CIPRO,LEVAQUIN ALLERGY PER DR ROBLES Tetracyclines (Verified Allergy, Intermediate, DOXYCYCLINE-HIVES, 12/18/16) Sulindac (Verified Allergy, Mild, ALLERGY LISTED "CLONDORAL"--HIVES, ) Adhesives (Verified Allergy, Unknown, RASH, DUODERM=RED,ITCHY, 12/18/16) PLASTIC TAPE IS OK!!! DUODERM=RED,ITCHY Metronidazole (Verified Allergy, Unknown, SEIZURE, 12/18/16) Tramadol (Verified Allergy, Unknown, SEIZURES, 12/18/16) Metoclopramide (Verified Adverse Reaction, Severe, SEIZURES, 12/18/16) Blueberry (Verified Adverse Reaction, Mild, STOMACH PAIN, 12/18/16) Furosemide (Verified Adverse Reaction, Unknown, HIVES, 12/18/16) Current Medications Home Meds and Scripts Medications Dose Route/Sig Max Daily Dose Days Date Category Dose Instructions Fluticasone Propionate 120 Sprays/6000 Mcg Inha 1 [place] ABRAHAN DAILY 12/18/16 Reported Phenergan (Promethazine HCl) 12.5 Mg Tab 1 Tab PO BID PRN 12/18/16 Reported Mirtazapine 15 Mg Tab 1 Tab PO HS 12/18/16 Reported Aleve Pm 220-25 mg (Naproxen Sodium-Diphenhydramin) 1 Tab Tab 1 Tab PO QPM PRN 12/14/16 Reported Sinemet 25MG/250MG (Carbidopa/Levodopa) Tab 1 Tab PO TID 12/14/16 Reported Aldactone (Spironolactone) 25 Mg Tab 25 Mg PO QAM 12/14/16 Reported [facility] Lecithin (Lecithin) Unknown Strength Cap 1 Cap PO DAILY 12/14/16 Reported Lutein (Lutein-Zeaxanthin) 1 Cap Cap 1 Cap PO DAILY 12/14/16 Reported Cranberry (Cranberry (Vaccinium Macrocarp) Unknown Strength Tab 1 Tab PO TID 12/14/16 Reported Gnp Vitamin A (Vitamin A) 8,000 Unit Cap 8,000 Units PO DAILY 12/14/16 Reported Vitamin C (Ascorbic Acid) 1,000 Mg Tab 1,000 Mg PO DAILY 12/14/16 Reported Multivitamin (Multivitamins) Tab 1 Tab PO DAILY 12/14/16 Reported Roxicodone Ir (Oxycodone HCl) 5 Mg Tab 5 Mg PO Q8 PRN 12/13/16 Reported Nasacort Allergy 24Hr (Triamcinolone Acetonide (Nasal) 55 Mcg/Act Spr 1 [place] ABRAHAN DAILY 12/13/16 Reported Imitrex (Sumatriptan Succinate) 100 Mg Tab 100 Mg PO UD PRN 12/13/16 Reported Levetiracetam 1,000 Mg Tab 2,000 Mg PO BID 12/13/16 Reported Topamax (Topiramate) 25 Mg Tab 25 Mg PO BID 12/13/16 Reported TOTAL DOSE: 75MG BID Topamax (Topiramate) 50 Mg Tab 50 Mg PO BID 12/13/16 Reported TOTAL DOSE: 75MG BID Toujeo Solostar (Insulin Glargine) 300 Unit/Ml Inj 38 Units SQ QAM 12/13/16 Reported Zofran Odt (Ondansetron HCl) 4 Mg Tab 4 Mg SL Q6H 11/11/16 Rx Lactulose 20 Gm/30 Ml Syrp 20 Gm PO BID 30 11/01/16 Rx and titrate up or down on dose for goal of 3 bowel movements daily Humalog Kwikpen (Insulin Lispro (Human)) 100 Unit/Ml Inj Units SC UD 06/18/16 Reported PER SLIDING SCALE Ventolin Hfa (Albuterol) 200 Puffs/71915 Mcg Aers 2-4 Puffs INH Q6H PRN 05/22/16 Reported Prilosec (Omeprazole) 20 Mg Capcr 20 Mg PO QAM 05/22/16 Reported Trileptal (Oxcarbazepine) 600 Mg Tab 600 Mg PO BID 02/10/16 Reported Epipen (Epinephrine) 0.3 Mg/0.3 Ml Inj 0.3 Mg IM UD PRN 10/22/15 Reported Zinc (Zinc Gluconate) 50 Mg Tab 50 Mg PO BID 08/22/15 Reported Ferrous Sulfate 325 Mg Tab 325 Mg PO QPM 06/20/15 Reported Levothyroxine Sodium 75 Mcg Tab 75 Mcg PO QAM 06/20/15 Reported Xifaxan (Rifaximin) 550 Mg Tab 550 Mg PO BID 05/31/15 Reported Mag-Ox (Magnesium Oxide) 400 Mg Tab 400 Mg PO TID 02/12/15 Reported Ranitidine HCl 150 Mg Tab 150 Mg PO BID 10/30/14 Reported Probiotic (Probiotic Product) 1 Cap Cap 1 Cap PO DAILY 12/13/13 Reported Glucose (Glucose-Vitamin C) 1 Chw Chw 1 Chw PO UD PRN 05/06/13 Reported Review of Systems Constitutional: No fever, No chills Respiratory: No cough, No shortness of breath Cardiac: No chest pain, No edema Abdomen: + pain, + nausea, + vomiting, No diarrhea, No constipation, No GI bleeding Physical Exam Date Time Temp Pulse Resp B/P (MAP) Pulse Ox O2 Delivery O2 Flow Rate FiO2 12/20/16 08:12 37.0 73 18 120/72 (88) 94 Room Air 12/20/16 02:17 36.7 12/20/16 00:25 36.8 75 18 114/68 (83) 98 Room Air 12/20/16 00:00 Room Air 12/19/16 22:58 36.7 76 18 137/79 (98) 98 Room Air 12/19/16 16:10 Room Air 12/19/16 14:56 36.8 83 18 111/75 (87) 100 Room Air General Appearance: no apparent distress Eyes: PERRL ENT: hearing grossly normal Neck: supple Respiratory/Chest: lungs clear, normal breath sounds Cardiovascular: regular rate, rhythm Abdomen: normal bowel sounds, non tender, soft, no organomegaly, no pulsatile mass Neurologic/Psych: alert, normal mood/affect, oriented x 3 Laboratory Results Last 24 Hours Test 12/19/16 16:11 12/19/16 20:19 12/20/16 05:27 12/20/16 07:38 Bedside Glucose 130 mg/dl 136 mg/dl 118 mg/dl White Blood Count 3.29 K/uL Red Blood Count 2.60 M/uL Hemoglobin 9.1 g/dL Hematocrit 24.9 % Mean Corpuscular Volume 95.8 fL Mean Corpuscular Hemoglobin 35.0 pg Mean Corpuscular Hemoglobin Concent 36.5 g/dl RDW Standard Deviation 53.2 fL RDW Coefficient of Variation 15.3 % Platelet Count 75 K/uL Mean Platelet Volume 10.0 fL Sodium Level 133 mmol/L Potassium Level 4.2 mmol/L Chloride Level 104 mmol/L Carbon Dioxide Level 26 mmol/L Anion Gap 3.0 mmol/L Blood Urea Nitrogen 13 mg/dl Creatinine 0.57 mg/dl Est Creatinine Clear Calc Drug Dose 126.8 ml/min Estimated GFR () 124.4 Estimated GFR (Non- 107.3 BUN/Creatinine Ratio 23.3 Random Glucose 114 mg/dl Calcium Level 7.1 mg/dl Total Bilirubin 1.0 mg/dl Aspartate Amino Transf (AST/SGOT) 43 U/L Alanine Aminotransferase (ALT/SGPT) 42 U/L Alkaline Phosphatase 277 U/L Ammonia 96.0 umol/L Total Protein 5.1 gm/dl Albumin 2.5 gm/dl Globulin 2.6 gm/dl Albumin/Globulin Ratio 1.0 Test 12/20/16 11:04 Bedside Glucose 138 mg/dl Impression Patient is a 51 year old female w/ NAFLD cirrhosis admitted with hepatic encephalopathy, elevated NH3, N/V - she had increased nausea and upset this morning after eating 100% of her tray and receiving narcotics for pain. Symptoms slightly improved throughout the day, no vomiting. Likely secondary to her gastroparesis, will back down to clear liquids, can use emend if nausea returns and persists or trial of domperidone. Plan - Gastroparesis diet - KUB for stool burden - back down to clear liquids today - if symptoms resolve - small, frequent meals - easy to digest foods in AM like low fiber, low residue --> can increase through nighttime - if symptoms are persistent despite clear liquid diet - Trial of domperidone 10 mg TID - Trial e-mycin 250 q6h (?drug allergy) - if nausea is not managed can consider one dose of IV Emend - Limit narcotics as these will increase her N/V - Xifaxan BID - Lactulose 30 TID ok to titrate to 3 BMs/day Please call with any questions or concerns. ATTESTATION: I have performed a history and physical examination of this patient and reviewed the electronic record. Specifically, on physical examination she is in no acute distress and abdomen is soft and non tender. I have discussed the case with JOSH Okeefe. The above note reflects my findings, conclusions, and recommendations. Hemant Cassidy MD
[2016-12-20] MEDS: PROMETHAZINE HCL 25 MG TAB PO PRN (13:32)
[2016-12-20] MEDS: PROMETHAZINE HCL INJ 25 MG in SODIUM CHLORIDE 0.9% 50ML 50 ML IV PRN ×2 (15:00→23:37)
[2016-12-20 15:17] VITALS: BP 134/65; PULSE 78; TEMP 36.9; O2SAT 93
[2016-12-20] MEDS ORDERED: NURSING VERBAL MED ORDER ONE (16:15)
[2016-12-20] MEDS: INSULIN HUMAN LISPRO 100 UNITS/ML 3ML PEN SC SCH ×2 (17:29→20:55)
--- NOTE | 2016-12-20 18:34 | Progress Note ---
Subjective Date of Service: Dec 20, 2016. Subjective Patient initially did appear slightly more lethargic today she did refuse receiving lactulose dose and since clear morning ammonia is slightly higher. She is requesting to have brand necessary Humalog in addition to her tajeo instead of Lantus and NovoLog which we have on formulary. She has no other focal problems or complaints Patient is requesting escalating doses of intravenous Phenergan Problem List Medical Problems: (1) Acute bronchitis Status: Acute (2) Acute hepatic encephalopathy Status: Acute (3) Alkaline phosphatase elevation Status: Acute (4) Back pain Status: Acute (5) Bradycardia Status: Acute (6) Breakthrough seizure Status: Acute (7) Burn Status: Acute (8) Change in mental status Status: Acute (9) Change in mental status Status: Acute (10) Change in mental status Status: Acute (11) Chronic low back pain Status: Acute (12) Closed head injury Status: Acute (13) Dehydration Status: Acute (14) Dizziness Status: Acute (15) Facial laceration Status: Acute (16) Fall Status: Acute (17) Fall Status: Acute (18) Fatigue Status: Acute (19) Hemorrhoid Status: Acute (20) Hepatic encephalopathy Status: Acute (21) Hepatic encephalopathy Status: Acute (22) Hepatic encephalopathy Status: Acute (23) Hepatic encephalopathy Status: Acute (24) Hepatic encephalopathy Status: Acute (25) Hepatic encephalopathy Status: Acute (26) Hepatic encephalopathy Status: Acute (27) Hepatic encephalopathy Status: Acute (28) Hepatic encephalopathy Status: Acute (29) Hyperammonemia Status: Acute (30) Hyperammonemia Status: Acute (31) Hyperammonemia Status: Acute (32) Hyperammonemia Status: Acute (33) Hyperammonemia Status: Acute (34) Hypocalcemia Status: Acute (35) Hypocalcemia Status: Acute (36) Hypokalemia Status: Acute (37) Hypomagnesemia Status: Acute (38) Increased ammonia level Status: Acute (39) Left foot pain Status: Acute (40) Leukopenia Status: Acute (41) Low back pain Status: Acute (42) Migraine Status: Acute (43) Nausea & vomiting Status: Acute (44) Noncompliance with medication regimen Status: Acute (45) Pain in pelvis Status: Acute (46) Pancytopenia Status: Acute (47) Post-operative pain Status: Acute (48) Right ear pain Status: Acute (49) Right groin pain Status: Acute (50) Right hip pain Status: Acute (51) Right upper lobe pneumonia Status: Acute (52) RUQ abdominal pain Status: Acute (53) Vomiting Status: Acute (54) Weakness Status: Acute (55) Weakness Status: Acute (56) Weakness Status: Acute (57) Weakness Status: Acute Review of Systems Constitutional: No fever, No chills Respiratory: No cough, No shortness of breath, No dyspnea on exertion Cardiac: No chest pain, No edema Abdomen: + nausea, + diarrhea, No pain, No vomiting Neurologic: + memory loss, + weakness Psychiatric: + depression symptoms, + anhedonism Objective Vital Signs Date Time Temp Pulse Resp B/P (MAP) Pulse Ox O2 Delivery O2 Flow Rate FiO2 12/20/16 16:00 Room Air 12/20/16 15:17 36.9 78 18 134/65 (88) 93 Room Air 12/20/16 08:12 37.0 73 18 120/72 (88) 94 Room Air 12/20/16 08:00 Room Air 12/20/16 02:17 36.7 12/20/16 00:25 36.8 75 18 114/68 (83) 98 Room Air 12/20/16 00:00 Room Air 12/19/16 22:58 36.7 76 18 137/79 (98) 98 Room Air Physical Exam General Appearance: WD/WN, + mild distress Eyes: PERRL, EOMI Neck: supple, no JVD Respiratory/Chest: chest non-tender, lungs clear, normal breath sounds Cardiovascular: regular rate, rhythm, no murmur Abdomen: normal bowel sounds, non tender, soft Extremities: no pedal edema, no calf tenderness Neurologic/Psychiatric: alert, oriented x 3 Laboratory Results Last 24 Hours Test 12/19/16 20:19 12/20/16 05:27 12/20/16 07:38 12/20/16 11:04 Bedside Glucose 136 mg/dl 118 mg/dl 138 mg/dl White Blood Count 3.29 K/uL Red Blood Count 2.60 M/uL Hemoglobin 9.1 g/dL Hematocrit 24.9 % Mean Corpuscular Volume 95.8 fL Mean Corpuscular Hemoglobin 35.0 pg Mean Corpuscular Hemoglobin Concent 36.5 g/dl RDW Standard Deviation 53.2 fL RDW Coefficient of Variation 15.3 % Platelet Count 75 K/uL Mean Platelet Volume 10.0 fL Sodium Level 133 mmol/L Potassium Level 4.2 mmol/L Chloride Level 104 mmol/L Carbon Dioxide Level 26 mmol/L Anion Gap 3.0 mmol/L Blood Urea Nitrogen 13 mg/dl Creatinine 0.57 mg/dl Est Creatinine Clear Calc Drug Dose 126.8 ml/min Estimated GFR () 124.4 Estimated GFR (Non- 107.3 BUN/Creatinine Ratio 23.3 Random Glucose 114 mg/dl Calcium Level 7.1 mg/dl Total Bilirubin 1.0 mg/dl Aspartate Amino Transf (AST/SGOT) 43 U/L Alanine Aminotransferase (ALT/SGPT) 42 U/L Alkaline Phosphatase 277 U/L Ammonia 96.0 umol/L Total Protein 5.1 gm/dl Albumin 2.5 gm/dl Globulin 2.6 gm/dl Albumin/Globulin Ratio 1.0 Test 12/20/16 16:14 Bedside Glucose 146 mg/dl Assessment and Plan 51-year-old female here with hepatic encephalopathy presented with gastrointestinal symptoms and elevated ammonia which is resolved with reinstitution of her normal home meds Hepatic encephalopathy maintain lactulose follow ammonia level patient requested gastrointestinal consultation Dr. Johns is her typical guest relations agent Cirrhosis. Continue supportive care or otherwise as above. Pancytopenia this is been chronic/mild and felt has been related to cirrhosis Diabetes. Her last A1c was 4.1 in August of very loose sliding scale be employed patient requests to return to brand necessary Humalog and her long-term outpatient insulin of Tajeo Deep venous thrombosis prophylaxis. Pharmacologic contraindicated due to her thrombocytopenia, Seizure disorder. She has no evidence of current seizures Continue her anticonvulsants. Continue Keppra and Trileptal, I believe her last stay her Sinemet was held we will hold it now and discuss with neurology Bipolar. Woods.
--- NOTE | 2016-12-20 19:09 | DIAGNOSTIC IMAGING REPORT ---
KUB CLINICAL HISTORY: stool burden, n/v pain COMPARISON STUDY: 12/18/2016 FINDINGS: Nonobstructive bowel pattern. Fecal load is unremarkable. No significant small bowel distention. IMPRESSION: Nonobstructive bowel pattern. Normal fecal load. The above report was generated using voice recognition software. It may contain grammatical, syntax or spelling errors. Electronically signed by: Kenroy Yates M.D. 12/20/2016 7:07 PM Dictated Date/Time: 12/20/2016 7:07 PM
[2016-12-20] MEDS: NAPROXEN 250 MG TAB PO PRN (19:39)
[2016-12-20 20:43] VITALS: BP 112/64; PULSE 60; O2SAT 98
[2016-12-20] MEDS: MIRTAZAPINE TAB 15 MG TAB PO SCH (20:49)
[2016-12-20] MEDS: FERROUS SULFATE 325 MG TAB PO SCH (20:52)
[2016-12-20 23:09] VITALS: BP 121/78; PULSE 65; TEMP 36.5; O2SAT 99
[2016-12-21] MEDS: PROMETHAZINE HCL 25 MG TAB PO PRN (02:33)
[2016-12-21] MEDS: LEVOTHYROXINE 75 MCG TAB PO SCH (05:43)
[2016-12-21] MEDS: ONDANSETRON 4MG OD TAB SL SCH ×4 (05:43→23:28)
[2016-12-21] MEDS: FLUTICASONE PROPIONATE NA SPR 16 GM BTL NAE SCH (09:00)
[2016-12-21] MEDS: TRIAMCINOLONE ACET NASAL SPRAY 10.8ML BTL NAE SCH (09:07)
[2016-12-21] MEDS: OXYCODONE HCL IR 5 MG TAB (IMMEDIATE RELEASE) PO PRN (09:12)
[2016-12-21] MEDS: LACTULOSE SYRUP 30 GM/45 ML UDP PO SCH ×3 (09:13→20:50)
[2016-12-21 09:14] VITALS: BP 111/73; PULSE 72; TEMP 36.6; O2SAT 100
[2016-12-21] MEDS: MULTIVITAMIN TAB PO SCH (09:16)
[2016-12-21] MEDS: RIFAXIMIN TAB 550 MG TAB PO SCH ×2 (09:17→20:54)
[2016-12-21] MEDS: MAGNESIUM OXIDE 400 MG TAB PO SCH ×3 (09:17→20:56)
[2016-12-21] MEDS: ASCORBIC ACID 500 MG TAB PO SCH (09:17)
[2016-12-21] MEDS: OXCARBAZEPINE 150 MG TAB PO SCH ×2 (09:17→20:55)
[2016-12-21] MEDS: LACTOBACILLUS ACIDOPHILUS (FLORANEX) TAB PO SCH (09:18)
[2016-12-21] MEDS: SPIRONOLACTONE 25 MG TAB PO SCH (09:18)
[2016-12-21] MEDS: TOPIRAMATE 25 MG TAB PO SCH ×2 (09:20→20:52)
[2016-12-21] MEDS: PANTOprazole SOD 40 MG TAB PO SCH (09:20)
[2016-12-21] MEDS: LEVETIRACETAM 1000 MG PO SCH ×2 (09:20→20:57)
[2016-12-21] MEDS: RANITIDINE HCL 150 MG TAB PO SCH ×2 (09:20→20:53)
[2016-12-21] MEDS: INSULIN HUMAN LISPRO 100 UNITS/ML 3ML PEN SC SCH ×4 (09:28→20:58)
[2016-12-21] MEDS: INSULIN GLARGINE 300 UNITS/ML INJ SC SCH (09:29)
[2016-12-21] MEDS: SODIUM CHLOR 0.45% + 20MEQ KCL 1,000 ML IV SCH (11:57)
[2016-12-21] MEDS: KETOROLAC TROMETHAMINE 30 MG/ML VIAL IV PRN (13:36)
[2016-12-21 13:48] LABS: URINE APPEARANCE CLEAR (CLEAR); URINE BILIRUBIN NEG (NEG); URINE COLOR YELLOW; URINE EPITHELIAL CELL AUTO 0-5 /lpf (0-5); URINE NITRITE NEG (NEG); URINE PH 7.5 (4.5-7.5); URINE SPECIFIC GRAVITY 1.013 (1.000-1.030); UROBILINOGEN NEG (NEG)
[2016-12-21 13:51] LABS: MANUAL MICROSCOPIC REQUIRED? NO; REVIEW REQ? NO
[2016-12-21 14:47] VITALS: BP 99/60; PULSE 80; TEMP 36.7; O2SAT 94
--- NOTE | 2016-12-21 15:26 | Progress Note ---
Subjective Date of Service: Dec 21, 2016. Subjective pt has many questions related to medication dosing levels and frequencies, she is having some nausea but eating her meals and did have some good bowel movements Problem List Medical Problems: (1) Acute bronchitis Status: Acute (2) Acute hepatic encephalopathy Status: Acute (3) Alkaline phosphatase elevation Status: Acute (4) Back pain Status: Acute (5) Bradycardia Status: Acute (6) Breakthrough seizure Status: Acute (7) Burn Status: Acute (8) Change in mental status Status: Acute (9) Change in mental status Status: Acute (10) Change in mental status Status: Acute (11) Chronic low back pain Status: Acute (12) Closed head injury Status: Acute (13) Dehydration Status: Acute (14) Dizziness Status: Acute (15) Facial laceration Status: Acute (16) Fall Status: Acute (17) Fall Status: Acute (18) Fatigue Status: Acute (19) Hemorrhoid Status: Acute (20) Hepatic encephalopathy Status: Acute (21) Hepatic encephalopathy Status: Acute (22) Hepatic encephalopathy Status: Acute (23) Hepatic encephalopathy Status: Acute (24) Hepatic encephalopathy Status: Acute (25) Hepatic encephalopathy Status: Acute (26) Hepatic encephalopathy Status: Acute (27) Hepatic encephalopathy Status: Acute (28) Hepatic encephalopathy Status: Acute (29) Hyperammonemia Status: Acute (30) Hyperammonemia Status: Acute (31) Hyperammonemia Status: Acute (32) Hyperammonemia Status: Acute (33) Hyperammonemia Status: Acute (34) Hypocalcemia Status: Acute (35) Hypocalcemia Status: Acute (36) Hypokalemia Status: Acute (37) Hypomagnesemia Status: Acute (38) Increased ammonia level Status: Acute (39) Left foot pain Status: Acute (40) Leukopenia Status: Acute (41) Low back pain Status: Acute (42) Migraine Status: Acute (43) Nausea & vomiting Status: Acute (44) Noncompliance with medication regimen Status: Acute (45) Pain in pelvis Status: Acute (46) Pancytopenia Status: Acute (47) Post-operative pain Status: Acute (48) Right ear pain Status: Acute (49) Right groin pain Status: Acute (50) Right hip pain Status: Acute (51) Right upper lobe pneumonia Status: Acute (52) RUQ abdominal pain Status: Acute (53) Vomiting Status: Acute (54) Weakness Status: Acute (55) Weakness Status: Acute (56) Weakness Status: Acute (57) Weakness Status: Acute Review of Systems Constitutional: No fever, No chills Respiratory: No cough, No shortness of breath Abdomen: + nausea, No pain Objective Vital Signs Date Time Temp Pulse Resp B/P (MAP) Pulse Ox O2 Delivery O2 Flow Rate FiO2 12/21/16 14:47 36.7 80 18 99/60 (73) 94 Room Air 12/21/16 09:14 36.6 72 18 111/73 (86) 100 Room Air 12/21/16 08:00 Room Air 12/20/16 23:09 36.5 65 16 121/78 (92) 99 Room Air 12/20/16 20:43 60 16 112/64 (80) 98 Room Air 12/20/16 19:53 Room Air 12/20/16 16:00 Room Air Physical Exam General Appearance: WD/WN, + mild distress Eyes: PERRL, EOMI Abdomen: normal bowel sounds, non tender, soft Laboratory Results Last 24 Hours Test 12/20/16 16:14 12/20/16 20:10 12/21/16 08:05 12/21/16 10:09 Bedside Glucose 146 mg/dl 153 mg/dl 108 mg/dl Ammonia 106.0 umol/L Test 12/21/16 11:33 12/21/16 13:30 Bedside Glucose 178 mg/dl Urine Color YELLOW Urine Appearance CLEAR Urine pH 7.5 Urine Specific [place] 1.013 Urine Protein NEG Urine Glucose (UA) NEG Urine Ketones NEG Urine Occult Blood NEG Urine Nitrite NEG Urine Bilirubin NEG Urine Urobilinogen NEG Urine Leukocyte Esterase MODERATE Urine WBC (Auto) >30 /hpf Urine RBC (Auto) 0-4 /hpf Urine Hyaline Casts (Auto) 0 /lpf Urine Epithelial Cells (Auto) 0-5 /lpf Urine Bacteria (Auto) NEG Assessment and Plan 51-year-old female here with hepatic encephalopathy presented with gastrointestinal symptoms and elevated ammonia which is resolved with reinstitution of her normal home meds Hepatic encephalopathy maintain lactulose, Dr. Johns is her typical engineer operations and maintenance. will continue to reinforce at least 2 bowel movements a day Cirrhosis. Continue supportive care or otherwise as above. Pancytopenia this is been chronic/mild and felt has been related to cirrhosis Diabetes. Her last A1c was 4.1 in August of very loose sliding scale be employed patient requests to return to brand necessary Humalog and her long-term outpatient insulin of Tajeo Deep venous thrombosis prophylaxis. Pharmacologic contraindicated due to her thrombocytopenia, Seizure disorder. She has no evidence of current seizures Continue her anticonvulsants. Continue Keppra and Trileptal, I believe her last stay her Sinemet was held we will hold it now and discuss with neurology Bipolar. Woods. Last admission she had a unwitnessed fall, will have PT/OT evaluation
[2016-12-21] MEDS: ONDANSETRON INJ 2 MG/ML 2 ML VIAL IV PRN (19:16)
[2016-12-21] MEDS: SUMATRIPTAN SUCC TAB 100 MG TAB PO PRN (20:05)
[2016-12-21] MEDS: FERROUS SULFATE 325 MG TAB PO SCH (20:52)
[2016-12-21] MEDS: MIRTAZAPINE TAB 15 MG TAB PO SCH (20:57)
[2016-12-22] MEDS: SODIUM CHLOR 0.45% + 20MEQ KCL 1,000 ML IV SCH ×2 (00:52→14:09)
[2016-12-22] MEDS: KETOROLAC TROMETHAMINE 30 MG/ML VIAL IV PRN ×3 (04:19→21:33)
[2016-12-22] MEDS: ONDANSETRON 4MG OD TAB SL SCH ×3 (06:13→17:36)
[2016-12-22] MEDS: LEVOTHYROXINE 75 MCG TAB PO SCH (06:13)
[2016-12-22 07:45] VITALS: BP 126/68; PULSE 68; TEMP 36.8; O2SAT 99
[2016-12-22] MEDS: FLUTICASONE PROPIONATE NA SPR 16 GM BTL NAE SCH (09:00)
[2016-12-22] MEDS: LACTOBACILLUS ACIDOPHILUS (FLORANEX) TAB PO SCH (09:21)
[2016-12-22] MEDS: LEVETIRACETAM 1000 MG PO SCH ×2 (09:22→21:40)
[2016-12-22] MEDS: PANTOprazole SOD 40 MG TAB PO SCH (09:22)
[2016-12-22] MEDS: RANITIDINE HCL 150 MG TAB PO SCH ×2 (09:22→21:39)
[2016-12-22] MEDS: MAGNESIUM OXIDE 400 MG TAB PO SCH ×3 (09:22→21:39)
[2016-12-22] MEDS: SPIRONOLACTONE 25 MG TAB PO SCH (09:22)
[2016-12-22] MEDS: RIFAXIMIN TAB 550 MG TAB PO SCH ×2 (09:23→21:38)
[2016-12-22] MEDS: TOPIRAMATE 25 MG TAB PO SCH ×2 (09:23→21:38)
[2016-12-22] MEDS: MULTIVITAMIN TAB PO SCH (09:23)
[2016-12-22] MEDS: TRIAMCINOLONE ACET NASAL SPRAY 10.8ML BTL NAE SCH (09:24)
[2016-12-22] MEDS: OXCARBAZEPINE 150 MG TAB PO SCH ×2 (09:24→21:38)
[2016-12-22] MEDS: LACTULOSE SYRUP 30 GM/45 ML UDP PO SCH ×3 (09:24→21:34)
[2016-12-22] MEDS: ASCORBIC ACID 500 MG TAB PO SCH (09:25)
[2016-12-22] MEDS: SUMATRIPTAN SUCC TAB 100 MG TAB PO PRN ×2 (09:25→21:39)
[2016-12-22] MEDS: OXYCODONE HCL IR 5 MG TAB (IMMEDIATE RELEASE) PO PRN (09:31)
[2016-12-22] MEDS: INSULIN HUMAN LISPRO 100 UNITS/ML 3ML PEN SC SCH ×4 (09:35→21:56)
[2016-12-22] MEDS: INSULIN GLARGINE 300 UNITS/ML INJ SC SCH (09:36)
[2016-12-22] MEDS: ONDANSETRON INJ 2 MG/ML 2 ML VIAL IV PRN (10:30)
--- NOTE | 2016-12-22 13:42 | Progress Note ---
Subjective Date of Service: Dec 22, 2016. Subjective pt is in her usual state, asking to have less bowel movements Problem List Medical Problems: (1) Acute bronchitis Status: Acute (2) Acute hepatic encephalopathy Status: Acute (3) Alkaline phosphatase elevation Status: Acute (4) Back pain Status: Acute (5) Bradycardia Status: Acute (6) Breakthrough seizure Status: Acute (7) Burn Status: Acute (8) Change in mental status Status: Acute (9) Change in mental status Status: Acute (10) Change in mental status Status: Acute (11) Chronic low back pain Status: Acute (12) Closed head injury Status: Acute (13) Dehydration Status: Acute (14) Dizziness Status: Acute (15) Facial laceration Status: Acute (16) Fall Status: Acute (17) Fall Status: Acute (18) Fatigue Status: Acute (19) Hemorrhoid Status: Acute (20) Hepatic encephalopathy Status: Acute (21) Hepatic encephalopathy Status: Acute (22) Hepatic encephalopathy Status: Acute (23) Hepatic encephalopathy Status: Acute (24) Hepatic encephalopathy Status: Acute (25) Hepatic encephalopathy Status: Acute (26) Hepatic encephalopathy Status: Acute (27) Hepatic encephalopathy Status: Acute (28) Hepatic encephalopathy Status: Acute (29) Hyperammonemia Status: Acute (30) Hyperammonemia Status: Acute (31) Hyperammonemia Status: Acute (32) Hyperammonemia Status: Acute (33) Hyperammonemia Status: Acute (34) Hypocalcemia Status: Acute (35) Hypocalcemia Status: Acute (36) Hypokalemia Status: Acute (37) Hypomagnesemia Status: Acute (38) Increased ammonia level Status: Acute (39) Left foot pain Status: Acute (40) Leukopenia Status: Acute (41) Low back pain Status: Acute (42) Migraine Status: Acute (43) Nausea & vomiting Status: Acute (44) Noncompliance with medication regimen Status: Acute (45) Pain in pelvis Status: Acute (46) Pancytopenia Status: Acute (47) Post-operative pain Status: Acute (48) Right ear pain Status: Acute (49) Right groin pain Status: Acute (50) Right hip pain Status: Acute (51) Right upper lobe pneumonia Status: Acute (52) RUQ abdominal pain Status: Acute (53) Vomiting Status: Acute (54) Weakness Status: Acute (55) Weakness Status: Acute (56) Weakness Status: Acute (57) Weakness Status: Acute Review of Systems Constitutional: No fever, No chills Respiratory: No cough, No shortness of breath, No dyspnea on exertion Abdomen: + diarrhea, No pain, No nausea, No vomiting Psychiatric: No depression symptoms, No anxiety Objective Vital Signs Date Time Temp Pulse Resp B/P (MAP) Pulse Ox O2 Delivery O2 Flow Rate FiO2 12/22/16 07:45 36.8 68 16 126/68 (87) 99 Room Air 12/22/16 00:00 Room Air 12/21/16 20:00 Room Air 12/21/16 16:00 Room Air 12/21/16 14:47 36.7 80 18 99/60 (73) 94 Room Air Physical Exam General Appearance: WD/WN, + mild distress Eyes: PERRL, EOMI Respiratory/Chest: chest non-tender, lungs clear, normal breath sounds Cardiovascular: regular rate, rhythm, no murmur Abdomen: normal bowel sounds, non tender, soft Neurologic/Psychiatric: alert, oriented x 3 Laboratory Results Last 24 Hours Test 12/21/16 16:15 12/21/16 19:51 12/22/16 07:40 12/22/16 11:42 Bedside Glucose 113 mg/dl 123 mg/dl 102 mg/dl 162 mg/dl Assessment and Plan 51-year-old female here with hepatic encephalopathy presented with gastrointestinal symptoms and elevated ammonia which is resolved with reinstitution of her normal home meds Hepatic encephalopathy maintain lactulose, Dr. Johns is her typical wrist hemmer. will continue to reinforce at least 2 bowel movements a day , pt now complaining about diarrhea frequency, likely why she stopped lactulose at home Cirrhosis. seemilgly stable Pancytopenia stable and chronic/mild secondary to cirrhosis Diabetes. Her last A1c was 4.1 in August pt requests tajeo and humalog Deep venous thrombosis prophylaxis. Pharmacologic contraindicated due to her thrombocytopenia, Seizure disorder. Keppra and Trileptal, I believe her last stay her Sinemet this was stopped upon medicine reconciliation Bipolar. Peggy. Last admission she had a unwitnessed fall, will have PT/OT evaluation
[2016-12-22 15:20] VITALS: BP 155/71; PULSE 68; TEMP 37; O2SAT 97
[2016-12-22] MEDS: MIRTAZAPINE TAB 15 MG TAB PO SCH (21:39)
[2016-12-22] MEDS: FERROUS SULFATE 325 MG TAB PO SCH (21:39)
[2016-12-22 22:46] VITALS: BP 107/67; PULSE 64; TEMP 36.6; O2SAT 98
[2016-12-23] MEDS: ONDANSETRON 4MG OD TAB SL SCH ×5 (00:04→23:40)
[2016-12-23] MEDS: OXYCODONE HCL IR 5 MG TAB (IMMEDIATE RELEASE) PO PRN ×3 (00:05→20:07)
[2016-12-23] MEDS: SODIUM CHLOR 0.45% + 20MEQ KCL 1,000 ML IV SCH ×2 (03:40→17:20)
[2016-12-23] MEDS: LEVOTHYROXINE 75 MCG TAB PO SCH (05:06)
[2016-12-23] MEDS: SUMATRIPTAN SUCC TAB 100 MG TAB PO PRN (05:19)
[2016-12-23] MEDS: ONDANSETRON INJ 2 MG/ML 2 ML VIAL IV PRN ×2 (06:33→18:44)
[2016-12-23 08:32] VITALS: BP 130/80; PULSE 62; TEMP 36.9; O2SAT 100
[2016-12-23] MEDS: FLUTICASONE PROPIONATE NA SPR 16 GM BTL NAE SCH (09:00)
[2016-12-23 10:04] VITALS: O2SAT 100
[2016-12-23] MEDS: TRIAMCINOLONE ACET NASAL SPRAY 10.8ML BTL NAE SCH (10:47)
[2016-12-23] MEDS: RIFAXIMIN TAB 550 MG TAB PO SCH ×2 (10:49→20:04)
[2016-12-23] MEDS: MULTIVITAMIN TAB PO SCH (10:49)
[2016-12-23] MEDS: KETOROLAC TROMETHAMINE 30 MG/ML VIAL IV PRN ×2 (10:49→21:43)
[2016-12-23] MEDS: LACTOBACILLUS ACIDOPHILUS (FLORANEX) TAB PO SCH (10:50)
[2016-12-23] MEDS: LEVETIRACETAM 1000 MG PO SCH ×2 (10:51→20:10)
[2016-12-23] MEDS: MAGNESIUM OXIDE 400 MG TAB PO SCH ×3 (10:51→20:05)
[2016-12-23] MEDS: LACTULOSE SYRUP 30 GM/45 ML UDP PO SCH ×3 (10:51→20:05)
[2016-12-23] MEDS: SPIRONOLACTONE 25 MG TAB PO SCH (10:52)
[2016-12-23] MEDS: ASCORBIC ACID 500 MG TAB PO SCH (10:53)
[2016-12-23] MEDS: PANTOprazole SOD 40 MG TAB PO SCH (10:53)
[2016-12-23] MEDS: TOPIRAMATE 25 MG TAB PO SCH ×2 (10:53→20:04)
[2016-12-23] MEDS: RANITIDINE HCL 150 MG TAB PO SCH ×2 (10:53→20:04)
[2016-12-23] MEDS: OXCARBAZEPINE 150 MG TAB PO SCH ×2 (10:54→20:04)
[2016-12-23] MEDS: INSULIN HUMAN LISPRO 100 UNITS/ML 3ML PEN SC SCH ×4 (11:00→21:00)
[2016-12-23] MEDS: INSULIN GLARGINE 300 UNITS/ML INJ SC SCH (11:01)
[2016-12-23 11:18] LABS: HEMATOCRIT 24.6 % (37-47); MEAN CELL VOLUME 92.8 fL (80-100); MEAN CORPUSCULAR HEMOGLOBIN 34.7 pg (25-34); MEAN CORPUSCULAR HGB CONC 37.4 g/dl (32-36); RED BLOOD COUNT 2.65 M/uL (4.2-5.4); WHITE BLOOD COUNT 2.89 K/uL (4.8-10.8)
[2016-12-23 11:20] LABS: MEAN PLATELET VOLUME 9.9 fL (7.4-10.4); PLATELET COUNT 89 K/uL (130-400)
[2016-12-23 11:39] LABS: BUN/CREATININE RATIO 11.8 (10-20); CALCIUM 7.3 mg/dl (8.5-10.1); CREATININE 0.48 mg/dl (0.60-1.20); MAGNESIUM 1.6 mg/dl (1.8-2.4); POTASSIUM 4.2 mmol/L (3.5-5.1)
[2016-12-23 11:41] LABS: BASO % 0.3 %; BASO ABS # 0.01 K/uL (0-0.2); COMPLETE YES; EOS % 2.4 %; LYMPH % 28.4 %; LYMPH ABS # 0.82 K/uL (1.2-3.4); MONO % 12.5 %; NEUT % 56.4 %; TOXIC GRANULATION 1+; VACUOLIZATION 1+
[2016-12-23] MEDS: MAGNESIUM SULFATE 1GM / D5W 1 GM in PREMIXED IN D5W 100 ML IV SCH ×2 (12:49→14:05)
[2016-12-23 15:32] VITALS: BP 102/66; PULSE 71; TEMP 36.5; O2SAT 99
[2016-12-23] MEDS: FERROUS SULFATE 325 MG TAB PO SCH (20:05)
[2016-12-23] MEDS: MIRTAZAPINE TAB 15 MG TAB PO SCH (20:05)
[2016-12-23] MEDS: PROMETHAZINE HCL 25 MG TAB PO PRN (20:07)
[2016-12-23] MEDS: PROMETHAZINE HCL INJ 25 MG in SODIUM CHLORIDE 0.9% 50ML 50 ML IV PRN (23:39)
[2016-12-23 23:49] VITALS: BP 138/74; PULSE 75; TEMP 36.9; O2SAT 97
[2016-12-24] MEDS: SODIUM CHLOR 0.45% + 20MEQ KCL 1,000 ML IV SCH (05:09)
[2016-12-24] MEDS: SUMATRIPTAN SUCC TAB 100 MG TAB PO PRN (05:10)
[2016-12-24] MEDS: ONDANSETRON 4MG OD TAB SL SCH ×4 (05:11→23:51)
[2016-12-24] MEDS: LEVOTHYROXINE 75 MCG TAB PO SCH (05:11)
[2016-12-24 05:27] LABS: HEMATOCRIT 25.6 % (37-47); MEAN CELL VOLUME 94.8 fL (80-100); MEAN CORPUSCULAR HEMOGLOBIN 35.6 pg (25-34); MEAN CORPUSCULAR HGB CONC 37.5 g/dl (32-36); MEAN PLATELET VOLUME 9.5 fL (7.4-10.4); PLATELET COUNT 105 K/uL (130-400); WHITE BLOOD COUNT 3.95 K/uL (4.8-10.8)
[2016-12-24 05:33] LABS: URINE APPEARANCE CLEAR (CLEAR); URINE BILIRUBIN NEG (NEG); URINE COLOR YELLOW; URINE NITRITE NEG (NEG); URINE PH 6.5 (4.5-7.5); URINE SPECIFIC GRAVITY 1.019 (1.000-1.030); UROBILINOGEN NEG (NEG)
[2016-12-24 05:35] LABS: MANUAL MICROSCOPIC REQUIRED? NO; REVIEW REQ? NO
[2016-12-24 05:45] LABS: BUN/CREATININE RATIO 17.2 (10-20); CALCIUM 7.4 mg/dl (8.5-10.1); CREATININE 0.59 mg/dl (0.60-1.20); MAGNESIUM 1.7 mg/dl (1.8-2.4); POTASSIUM 4.7 mmol/L (3.5-5.1)
--- NOTE | 2016-12-24 06:18 | Progress Note ---
Subjective Date of Service: Dec 23, 2016. Subjective Pt evaluation today including: conversation w/ patient, physical exam, chart review, lab review, review of studies Pain: no abd pain PO Intake: good - 100% meals pt c/o dysuria she is worried about her rising ammonia states she "feels foggy" staff report she is doing well diarrhea stools resolved wants to go home Problem List Medical Problems: (1) Acute bronchitis Status: Acute (2) Acute hepatic encephalopathy Status: Acute (3) Alkaline phosphatase elevation Status: Acute (4) Back pain Status: Acute (5) Bradycardia Status: Acute (6) Breakthrough seizure Status: Acute (7) Burn Status: Acute (8) Change in mental status Status: Acute (9) Change in mental status Status: Acute (10) Change in mental status Status: Acute (11) Chronic low back pain Status: Acute (12) Closed head injury Status: Acute (13) Dehydration Status: Acute (14) Dizziness Status: Acute (15) Facial laceration Status: Acute (16) Fall Status: Acute (17) Fall Status: Acute (18) Fatigue Status: Acute (19) Hemorrhoid Status: Acute (20) Hepatic encephalopathy Status: Acute (21) Hepatic encephalopathy Status: Acute (22) Hepatic encephalopathy Status: Acute (23) Hepatic encephalopathy Status: Acute (24) Hepatic encephalopathy Status: Acute (25) Hepatic encephalopathy Status: Acute (26) Hepatic encephalopathy Status: Acute (27) Hepatic encephalopathy Status: Acute (28) Hepatic encephalopathy Status: Acute (29) Hyperammonemia Status: Acute (30) Hyperammonemia Status: Acute (31) Hyperammonemia Status: Acute (32) Hyperammonemia Status: Acute (33) Hyperammonemia Status: Acute (34) Hypocalcemia Status: Acute (35) Hypocalcemia Status: Acute (36) Hypokalemia Status: Acute (37) Hypomagnesemia Status: Acute (38) Increased ammonia level Status: Acute (39) Left foot pain Status: Acute (40) Leukopenia Status: Acute (41) Low back pain Status: Acute (42) Migraine Status: Acute (43) Nausea & vomiting Status: Acute (44) Noncompliance with medication regimen Status: Acute (45) Pain in pelvis Status: Acute (46) Pancytopenia Status: Acute (47) Post-operative pain Status: Acute (48) Right ear pain Status: Acute (49) Right groin pain Status: Acute (50) Right hip pain Status: Acute (51) Right upper lobe pneumonia Status: Acute (52) RUQ abdominal pain Status: Acute (53) Vomiting Status: Acute (54) Weakness Status: Acute (55) Weakness Status: Acute (56) Weakness Status: Acute (57) Weakness Status: Acute Review of Systems Constitutional: No fever Respiratory: No shortness of breath Cardiac: No chest pain Abdomen: No pain Objective Vital Signs Date Time Temp Pulse Resp B/P (MAP) Pulse Ox O2 Delivery O2 Flow Rate FiO2 12/23/16 16:00 Room Air 12/23/16 15:32 36.5 71 18 102/66 (78) 99 Room Air 12/23/16 10:04 100 Room Air 12/23/16 08:32 36.9 62 20 130/80 (97) 100 Room Air 12/23/16 08:00 Room Air 12/23/16 00:00 Room Air 12/22/16 22:46 36.6 64 16 107/67 (80) 98 Room Air 64 12/22/16 20:00 Room Air Physical Exam General Appearance: no apparent distress ENT: pharynx normal (MMM) Neck: no JVD Respiratory/Chest: lungs clear, no respiratory distress, no accessory muscle use Cardiovascular: regular rate, rhythm, no gallop, no murmur Abdomen: normal bowel sounds, non tender, soft, no organomegaly Extremities: + pedal edema Neurologic/Psychiatric: alert, oriented x 3, + pertinent finding (no asterixis ) Laboratory Results Last 24 Hours Test 12/22/16 20:06 12/23/16 05:01 12/23/16 07:21 12/23/16 10:58 Bedside Glucose 168 mg/dl 153 mg/dl Ammonia 126.0 umol/L White Blood Count 2.89 K/uL Red Blood Count 2.65 M/uL Hemoglobin 9.2 g/dL Hematocrit 24.6 % Mean Corpuscular Volume 92.8 fL Mean Corpuscular Hemoglobin 34.7 pg Mean Corpuscular Hemoglobin Concent 37.4 g/dl Platelet Count 89 K/uL Mean Platelet Volume 9.9 fL Neutrophils (%) (Auto) 56.4 % Lymphocytes (%) (Auto) 28.4 % Monocytes (%) (Auto) 12.5 % Eosinophils (%) (Auto) 2.4 % Basophils (%) (Auto) 0.3 % Neutrophils # (Auto) 1.63 K/uL Lymphocytes # (Auto) 0.82 K/uL Monocytes # (Auto) 0.36 K/uL Eosinophils # (Auto) 0.07 K/uL Basophils # (Auto) 0.01 K/uL RDW Standard Deviation 52.0 fL RDW Coefficient of Variation 15.3 % Immature Granulocyte % (Auto) 0.0 % Immature Granulocyte # (Auto) 0.00 K/uL Toxic Granulation 1+ Toxic Vacuolation 1+ Sodium Level 128 mmol/L Potassium Level 4.2 mmol/L Chloride Level 98 mmol/L Carbon Dioxide Level 21 mmol/L Anion Gap 9.0 mmol/L Blood Urea Nitrogen 6 mg/dl Creatinine 0.48 mg/dl Est Creatinine Clear Calc Drug Dose 150.6 ml/min Estimated GFR () 131.6 Estimated GFR (Non- 113.6 BUN/Creatinine Ratio 11.8 Random Glucose 188 mg/dl Calcium Level 7.3 mg/dl Magnesium Level 1.6 mg/dl Test 12/23/16 11:32 12/23/16 16:24 Bedside Glucose 187 mg/dl 153 mg/dl Assessment and Plan 51yo female - 1. hepatic encephalopathy - despite rising ammonia it is clinically resolved. She runs about 80-100 at baseline. Recheck in am. Cont lactulose for 2-3 BMs/day and rifaximin BID. 2. recent vomiting - unclear etiology - resolved. 3. dysuria - recheck u/a and urine cx. 4. hyponatremia - she appears hydrated but not overtly volume overloaded. Will check urine osm, urine Na, and serum osm before giving additional fluid or diuretics. BMP am. 5. T2DM - controlled. 6. bipolar disorder - continue complex regimen of meds. 7. seizure d/o - controlled, continue outpatient meds. 8. pancytopenia - 2nd to liver disease, +/- MDS - stable, CBC in am. 9. cirrhosis 2nd to STEVE - appears compensated on exam. 10. hypomagnesemia - likely from recent diarrhea, poor oral intake - mag sulfate 2 gms x 1; repeat mag in am patient requesting home with home health, maybe tomorrow if stable and labs are acceptable Continued [facility] stay due to: multiple IV medications needed Discharge planning: home with home health
[2016-12-24] MEDS: OXYCODONE HCL IR 5 MG TAB (IMMEDIATE RELEASE) PO PRN (06:23)
[2016-12-24 07:57] VITALS: BP 140/82; PULSE 66; TEMP 36.8; O2SAT 100
[2016-12-24] MEDS: MAGNESIUM SULFATE 1GM / D5W 1 GM in PREMIXED IN D5W 100 ML IV SCH ×2 (08:30→09:33)
[2016-12-24] MEDS: FLUTICASONE PROPIONATE NA SPR 16 GM BTL NAE SCH (08:34)
[2016-12-24 08:37] VITALS: BP 128/75; PULSE 73
[2016-12-24] MEDS: LEVETIRACETAM 1000 MG PO SCH ×2 (08:37→20:22)
[2016-12-24] MEDS: PANTOprazole SOD 40 MG TAB PO SCH (08:37)
[2016-12-24] MEDS: LACTOBACILLUS ACIDOPHILUS (FLORANEX) TAB PO SCH (08:38)
[2016-12-24] MEDS: ASCORBIC ACID 500 MG TAB PO SCH (08:38)
[2016-12-24] MEDS: SPIRONOLACTONE 25 MG TAB PO SCH (08:39)
[2016-12-24] MEDS: OXCARBAZEPINE 150 MG TAB PO SCH ×2 (08:39→20:20)
[2016-12-24] MEDS: TOPIRAMATE 25 MG TAB PO SCH ×2 (08:39→20:18)
[2016-12-24] MEDS: MAGNESIUM OXIDE 400 MG TAB PO SCH ×3 (08:40→20:20)
[2016-12-24] MEDS: RIFAXIMIN TAB 550 MG TAB PO SCH ×3 (08:40→21:45)
[2016-12-24] MEDS: MULTIVITAMIN TAB PO SCH (08:40)
[2016-12-24] MEDS: RANITIDINE HCL 150 MG TAB PO SCH ×2 (08:40→20:19)
[2016-12-24] MEDS: LACTULOSE SYRUP 30 GM/45 ML UDP PO SCH ×3 (08:41→20:17)
[2016-12-24] MEDS: TRIAMCINOLONE ACET NASAL SPRAY 10.8ML BTL NAE SCH (08:41)
[2016-12-24] MEDS: INSULIN HUMAN LISPRO 100 UNITS/ML 3ML PEN SC SCH ×4 (08:45→21:43)
[2016-12-24] MEDS: INSULIN GLARGINE 300 UNITS/ML INJ SC SCH (08:46)
[2016-12-24] MEDS: KETOROLAC TROMETHAMINE 30 MG/ML VIAL IV PRN (08:52)
[2016-12-24] MEDS: ALBUTEROL HFA 8 GM INHALER INH PRN ×2 (09:02→15:41)
[2016-12-24] MEDS ORDERED: SPIRONOLACTONE 25 MG TAB PO ONE (10:30)
[2016-12-24] MEDS: ONDANSETRON INJ 2 MG/ML 2 ML VIAL IV PRN (13:48)
--- NOTE | 2016-12-24 15:10 | DIAGNOSTIC IMAGING REPORT ---
CHEST 2 VIEWS ROUTINE CLINICAL HISTORY: Cough COMPARISON STUDY: 10/17/2016 FINDINGS: The heart is mildly enlarged. There is a right-sided A-Port catheter. There is a left-sided stimulator with electrodes the base of the left neck. There is mild central vascular prominence suggesting mild central pulmonary vascular congestion. There is no lobar consolidation. There are no pleural effusions.[ IMPRESSION: Cardiomegaly and mild central pulmonary vascular congestion. No evidence of focal pulmonary consolidation. No pleural effusions identified. Electronically signed by: Bran Hernandez M.D. 12/24/2016 3:09 PM Dictated Date/Time: 12/24/2016 3:07 PM
[2016-12-24 15:29] VITALS: BP 139/79; PULSE 74; TEMP 37; O2SAT 99
[2016-12-24] MEDS ORDERED: BUMETANIDE IV 1 MG in SYRINGE 0 ML IV ONE (16:00)
[2016-12-24 16:38] VITALS: BP 127/74; PULSE 76
[2016-12-24] MEDS: BENZONATATE 100MG CAP PO SCH (20:18)
[2016-12-24] MEDS: FERROUS SULFATE 325 MG TAB PO SCH (20:19)
[2016-12-24] MEDS: MIRTAZAPINE TAB 15 MG TAB PO SCH (20:21)
[2016-12-24 23:42] VITALS: BP 123/69; PULSE 75; TEMP 36.7; O2SAT 96
[2016-12-25] MEDS: SUMATRIPTAN SUCC TAB 100 MG TAB PO PRN (01:30)
--- NOTE | 2016-12-25 04:53 | Progress Note ---
Subjective Date of Service: Dec 24, 2016. Subjective Pt evaluation today including: conversation w/ patient, physical exam, chart review, lab review, review of studies (cxr), review of inpatient medication list Pain: right ear pain PO Intake: excellent; 100% meals no issues overnight c/o cough x 4 days; dry c/o right ear pain for several days states "I want to go home today" feels a bit wheezy Problem List Medical Problems: (1) Acute bronchitis Status: Acute (2) Acute hepatic encephalopathy Status: Acute (3) Alkaline phosphatase elevation Status: Acute (4) Back pain Status: Acute (5) Bradycardia Status: Acute (6) Breakthrough seizure Status: Acute (7) Burn Status: Acute (8) Change in mental status Status: Acute (9) Change in mental status Status: Acute (10) Change in mental status Status: Acute (11) Chronic low back pain Status: Acute (12) Closed head injury Status: Acute (13) Dehydration Status: Acute (14) Dizziness Status: Acute (15) Facial laceration Status: Acute (16) Fall Status: Acute (17) Fall Status: Acute (18) Fatigue Status: Acute (19) Hemorrhoid Status: Acute (20) Hepatic encephalopathy Status: Acute (21) Hepatic encephalopathy Status: Acute (22) Hepatic encephalopathy Status: Acute (23) Hepatic encephalopathy Status: Acute (24) Hepatic encephalopathy Status: Acute (25) Hepatic encephalopathy Status: Acute (26) Hepatic encephalopathy Status: Acute (27) Hepatic encephalopathy Status: Acute (28) Hepatic encephalopathy Status: Acute (29) Hyperammonemia Status: Acute (30) Hyperammonemia Status: Acute (31) Hyperammonemia Status: Acute (32) Hyperammonemia Status: Acute (33) Hyperammonemia Status: Acute (34) Hypocalcemia Status: Acute (35) Hypocalcemia Status: Acute (36) Hypokalemia Status: Acute (37) Hypomagnesemia Status: Acute (38) Increased ammonia level Status: Acute (39) Left foot pain Status: Acute (40) Leukopenia Status: Acute (41) Low back pain Status: Acute (42) Migraine Status: Acute (43) Nausea & vomiting Status: Acute (44) Noncompliance with medication regimen Status: Acute (45) Pain in pelvis Status: Acute (46) Pancytopenia Status: Acute (47) Post-operative pain Status: Acute (48) Right ear pain Status: Acute (49) Right groin pain Status: Acute (50) Right hip pain Status: Acute (51) Right upper lobe pneumonia Status: Acute (52) RUQ abdominal pain Status: Acute (53) Vomiting Status: Acute (54) Weakness Status: Acute (55) Weakness Status: Acute (56) Weakness Status: Acute (57) Weakness Status: Acute Review of Systems Constitutional: No fever Respiratory: + cough, + wheezing, No shortness of breath Cardiac: No chest pain Abdomen: + diarrhea, No pain, No nausea, No vomiting Objective Vital Signs Date Time Temp Pulse Resp B/P (MAP) Pulse Ox O2 Delivery O2 Flow Rate FiO2 12/24/16 16:38 76 127/74 (91) 12/24/16 16:00 Room Air 12/24/16 15:29 37.0 74 16 139/79 (99) 99 12/24/16 08:37 73 128/75 (92) 12/24/16 08:00 Room Air 12/24/16 07:57 36.8 66 19 140/82 (101) 100 12/24/16 00:00 Room Air 12/23/16 23:49 36.9 75 16 138/74 (95) 97 Room Air Physical Exam General Appearance: no apparent distress ENT: pharynx normal, + pertinent finding (cerumen impaction, right ear) Neck: no JVD Respiratory/Chest: no respiratory distress, no accessory muscle use, + rales ( scant, bases) Cardiovascular: regular rate, rhythm, no gallop, + systolic murmur (1-2/6 RUSB) Abdomen: normal bowel sounds, non tender, soft, no organomegaly Extremities: + pedal edema (trace b/l ) Neurologic/Psychiatric: alert, oriented x 3, + pertinent finding (no asterixis ) Laboratory Results Last 24 Hours Test 12/24/16 00:00 12/24/16 05:19 12/24/16 07:43 12/24/16 11:12 Urine Color YELLOW Urine Appearance CLEAR Urine pH 6.5 Urine Specific [place] 1.019 Urine Protein NEG Urine Glucose (UA) NEG Urine Ketones NEG Urine Occult Blood NEG Urine Nitrite NEG Urine Bilirubin NEG Urine Urobilinogen NEG Urine Leukocyte Esterase NEG Urine Osmolality 516 mOms/kg Urine Random Sodium 66 mEq/L White Blood Count 3.95 K/uL Red Blood Count 2.70 M/uL Hemoglobin 9.6 g/dL Hematocrit 25.6 % Mean Corpuscular Volume 94.8 fL Mean Corpuscular Hemoglobin 35.6 pg Mean Corpuscular Hemoglobin Concent 37.5 g/dl RDW Standard Deviation 54.1 fL RDW Coefficient of Variation 15.7 % Platelet Count 105 K/uL Mean Platelet Volume 9.5 fL Sodium Level 129 mmol/L Potassium Level 4.7 mmol/L Chloride Level 100 mmol/L Carbon Dioxide Level 21 mmol/L Anion Gap 8.0 mmol/L Blood Urea Nitrogen 10 mg/dl Creatinine 0.59 mg/dl Est Creatinine Clear Calc Drug Dose 122.5 ml/min Estimated GFR () 123.0 Estimated GFR (Non- 106.1 BUN/Creatinine Ratio 17.2 Random Glucose 116 mg/dl Osmolality 262 mOsm/kg Calcium Level 7.4 mg/dl Magnesium Level 1.7 mg/dl Ammonia 52.0 umol/L Bedside Glucose 106 mg/dl 157 mg/dl Test 12/24/16 16:39 12/24/16 20:53 Bedside Glucose 155 mg/dl 193 mg/dl Assessment and Plan 51yo female - 1. hepatic encephalopathy - resolved. Cont lactulose for 2-3 BMs/day and rifaximin BID. 2. recent vomiting - unclear etiology - resolved. 3. dysuria - rechecked u/a - normal. 4. hyponatremia - due to recent hypotonic fluids? Urine osm and Urine Na not c/w volume depletion but salt excess state. In light of cxr findings will give bumex 1mg IV x 1 and re-eval in am with bmp. 5. T2DM - controlled. 6. bipolar disorder - continue complex regimen of meds. 7. seizure d/o - controlled, continue outpatient meds. 8. pancytopenia - 2nd to liver disease, +/- MDS - stable on cbc today 9. cirrhosis 2nd to STEVE - appears compensated 10. hypomagnesemia - give 2 additional grams of mag sulfate today; repeat mag level am 11. probable acute diastolic CHF - likely cause of cough - bumex 1mg IV x 1 12. cerumen impaction, right ear - outpatient irrigation/removal hopefully d/c in am Continued [facility] stay due to: multiple IV medications needed Discharge planning: home with home health
[2016-12-25] MEDS: LEVOTHYROXINE 75 MCG TAB PO SCH (05:27)
[2016-12-25] MEDS: ONDANSETRON 4MG OD TAB SL SCH ×3 (05:28→18:01)
[2016-12-25 06:30] LABS: BUN/CREATININE RATIO 12.2 (10-20); CALCIUM 7.7 mg/dl (8.5-10.1); CREATININE 0.63 mg/dl (0.60-1.20); MAGNESIUM 1.5 mg/dl (1.8-2.4); POTASSIUM 3.8 mmol/L (3.5-5.1)
[2016-12-25 07:47] VITALS: BP 120/71; PULSE 72; TEMP 36.5; O2SAT 95
[2016-12-25 08:26] VITALS: BP 135/85; PULSE 84
[2016-12-25] MEDS: TRIAMCINOLONE ACET NASAL SPRAY 10.8ML BTL NAE SCH (08:26)
[2016-12-25] MEDS: FLUTICASONE PROPIONATE NA SPR 16 GM BTL NAE SCH (08:26)
[2016-12-25] MEDS: LACTULOSE SYRUP 30 GM/45 ML UDP PO SCH ×2 (08:27→14:34)
[2016-12-25] MEDS: LACTOBACILLUS ACIDOPHILUS (FLORANEX) TAB PO SCH (08:28)
[2016-12-25] MEDS: RIFAXIMIN TAB 550 MG TAB PO SCH (08:28)
[2016-12-25] MEDS: PANTOprazole SOD 40 MG TAB PO SCH (08:29)
[2016-12-25] MEDS: MAGNESIUM OXIDE 400 MG TAB PO SCH ×2 (08:29→14:35)
[2016-12-25] MEDS: RANITIDINE HCL 150 MG TAB PO SCH (08:29)
[2016-12-25] MEDS: MULTIVITAMIN TAB PO SCH (08:30)
[2016-12-25] MEDS: BENZONATATE 100MG CAP PO SCH ×2 (08:30→14:00)
[2016-12-25] MEDS: SPIRONOLACTONE 25 MG TAB PO SCH (08:31)
[2016-12-25] MEDS: ASCORBIC ACID 500 MG TAB PO SCH (08:31)
[2016-12-25] MEDS: OXCARBAZEPINE 150 MG TAB PO SCH (08:32)
[2016-12-25] MEDS: TOPIRAMATE 25 MG TAB PO SCH (08:32)
[2016-12-25] MEDS: LEVETIRACETAM 1000 MG PO SCH (08:33)
[2016-12-25] MEDS: INSULIN GLARGINE 300 UNITS/ML INJ SC SCH (08:40)
[2016-12-25] MEDS: INSULIN HUMAN LISPRO 100 UNITS/ML 3ML PEN SC SCH ×3 (08:40→18:03)
[2016-12-25] MEDS ORDERED: SPIRONOLACTONE 25 MG TAB PO SCH (09:00)
[2016-12-25] MEDS: KETOROLAC TROMETHAMINE 30 MG/ML VIAL IV PRN (09:07)
[2016-12-25] MEDS ORDERED: CEPHALEXIN MONOHYDRATE 500 MG CAP PO SCH (10:00)
[2016-12-25] MEDS: MAGNESIUM SULFATE 1GM / D5W 1 GM in PREMIXED IN D5W 100 ML IV SCH ×3 (10:17→13:24)
[2016-12-25] MEDS: OXYCODONE HCL IR 5 MG TAB (IMMEDIATE RELEASE) PO PRN (14:38)
[2016-12-25 15:06] VITALS: BP 119/74; PULSE 79; TEMP 36.9; O2SAT 98
[2016-12-25 15:36] LABS: MAGNESIUM 2.5 mg/dl (1.8-2.4)
[2016-12-25] MEDS ORDERED: KFL500 PO (16:53)
[2016-12-25] MEDS ORDERED: BUME1TAB PO (16:53)
--- NOTE | 2016-12-25 17:01 | Discharge Instructions ---
Discharge Instructions Date of Service Dec 25, 2016. Admission Reason for Admission: Vomiting, Hyperammonemia Discharge Discharge Diagnosis / Problem: 1. high ammonia levels - resolved. 2. vomiting - resolved. 3. UTI Discharge Goals Goal(s): Learn about illness, Diagnostic testing, Therapeutic intervention Activity Recommendations Activity Limitations: resume your previous activity (as tolerated) . Instructions / Follow-Up Instructions / Follow-Up From Dr. Haney - [place]. For your ammonia - * continue on your lactulose and take 2-3 times each day; may take more or less depending on the number of bowel movements. * recommend 2-3 bowel movements EVERY DAY to keep your ammonia down * continue your rifaximin twice a day as well 2. Urinary tract infection - * starting TONIGHT, 12/25/16, take cephalexin 500mg twice daily for 7 days * I will call you if your urine culture result suggests that we need to change the antibiotic * prescription sent to [email or web address] for you 3. Right ear wax (cerumen) impaction - * can purchase [id number] debrox solution and use twice daily for about 3 days * then your family doctor can irrigate the ear in the office to remove all of the wax * do NOT use q-tips in your ears as this makes the wax issue worse 4. Excess fluid - * take bumex for 2 days only * take HALF OF A TABLET each morning on 12/26 and Wednesday 12/27 then STOP * prescription sent to [email or web address] for you * again only take for 2 days beginning tomorrow * you will continue on your spironolactone every morning as previous 5. Return to [facility] if - * worsening drowsiness, lethargy, difficulty keeping eyes open, etc (signs of elevated ammonia levels) * worsening urinary tract infection symptoms despite taking your antibiotic ( blood in the urine, painful urination, difficulty voiding, etc) * recurrent vomiting * any other concerns 6. Follow-up appointments - * see separate section in this handout 7. Other - * please STOP your sinemet as recommended by the neurology team in October 2016 Current Hospital Diet Patient's current hospital diet: Diabetes Type 2 Diet, AHA Diet (Heart Healthy) Discharge Diet Recommended Diet: AHA Diet (Heart Healthy), Diabetes Type 2 Diet Fluid Restriction: 1500 ml (6 cups) Procedures Procedures Performed: x-rays of chest and abdomen Pending Studies Studies pending at discharge: yes List of pending studies: final urine culture result Laboratory Results Hemoglobin A1c Test 09/25/16 08:18 Range/Units Estimated Average Glucose 71 mg/dl Hemoglobin A1c 4.1 L 4.5-5.6 % Lipid Panel Test 09/25/16 08:18 Range/Units Triglycerides Level 46 0-150 mg/dl Cholesterol Level 126 0-200 mg/dl HDL Cholesterol 72 mg/dl Cholesterol/HDL Ratio 1.8 LDL Cholesterol, Calculated 45 mg/dl Medical Emergencies . Who to Call and When: Medical Emergencies: If at any time you feel your situation is an emergency, please call 911 immediately. . Non-Emergent Contact Non-Emergency issues call your: Primary Care Provider Call Non-Emergent contact if: temperature is above 100.5, your pain is not controlled, your pain is worsening, your pain is unusual for you, your pain is concerning you, you have any medication questions . . "Provider Documentation" section prepared by Sammy Haney. . VTE Core Measure Inpt VTE Proph given/why not?: SCD's
[2016-12-25 17:13] VITALS: BP 119/74; PULSE 79; TEMP 36.9; O2SAT 98
[2016-12-26] MEDS ORDERED: CIPR-255 PO (10:04)
--- NOTE | 2016-12-26 10:12 | Discharge Summary ---
Discharge Summary Date of Service Dec 26, 2016. Discharge Summary Admission Date: Dec 23, 2016 at 14:28 Discharge Date: Dec 25, 2016 Discharge Disposition: Home Principal Diagnosis: vomiting, likely due to gastroparesis Problems/Secondary Diagnoses: 1. STEVE cirrhosis 2. hepatic encephalopathy - resolved 3. UTI 4. bipolar disorder 5. hyponatremia - improving 6. hypomagnesemia - acute on chronic 7. type 2 diabetes 8. gastroparesis 9. depression 10. migraine headaches 11. h/o myelodysplasia 12. pancytopenia likely due to cirrhosis 13. h/o PUD 14. seizure disorder 15. h/o pseudoseizures 16. h/o possible parkinsonism 17. hypothyroidism 18. asthma 19. acute diastolic CHF - resolving 20. cerumen impaction - right ear Immunizations: Have You Had Influenza Vaccine: Yes Influenza Vaccine Date: Feb 02, 2013 History of Tetanus Vaccine?: utd Tetanus Immunization Date: Jun 11, 2008 History of Pneumococcal: SEE LAST PACKET Pneumococcal Date: Nov 13, 2008 History of Hepatitis B Vaccine: Unknown Hepatitis Immunization Date: Jan 12, 1996 Procedures: KUB x-rays Chest x-ray Consultations: gastroenterology - Ruiz Cassidy MD Medication Reconciliation New Medications: Bumetanide (Bumex) 1 Mg Tab 0.5 TAB PO DIRECTED, #14 TAB 0 Refills Ciprofloxacin Hcl (Cipro) 500 Mg Tab 500 MG PO BID for 5 Days, #10 TAB 0 Refills Continued Medications: Albuterol Hfa (Ventolin Hfa) 200 Puffs/54832 Mcg Aers 2-4 PUFFS INH Q6H PRN for Shortness of Breath, #1 INHALER Ascorbic Acid (Vitamin C) 1,000 Mg Tab 1000 MG PO DAILY Cranberry (Vaccinium Macrocarp (Cranberry) Unknown Strength Tab 1 TAB PO TID Epinephrine (Epipen) 0.3 Mg/0.3 Ml Inj 0.3 MG IM UD PRN for ALLERGIC REACTION Ferrous Sulfate (Ferrous Sulfate) 325 Mg Tab 325 MG PO QPM Fluticasone Propionate (Fluticasone Propionate) 120 Sprays/6000 Mcg Inha 1 SPRAY ABRAHAN DAILY, #16 Glucose-Vitamin C (Glucose) 1 Chw Chw 1 CHW PO UD PRN for Hypoglycemia Insulin Glargine (Toujeo Solostar) 300 Unit/Ml Inj 38 UNITS SQ QAM Insulin Lispro (Human) (Humalog Kwikpen) 100 Unit/Ml Inj UNITS SC UD PER SLIDING SCALE Lactulose (Lactulose) 20 Gm/30 Ml Syrp 20 GM PO BID for 30 Days and titrate up or down on dose for goal of 3 bowel movements daily Lecithin (Cvs Lecithin) Unknown Strength Cap 1 CAP PO DAILY Levetiracetam (Levetiracetam) 1,000 Mg Tab 2000 MG PO BID Levothyroxine Sodium (Levothyroxine Sodium) 75 Mcg Tab 75 MCG PO QAM, TAB Lutein-Zeaxanthin (Lutein) 1 Cap Cap 1 CAP PO DAILY Magnesium Oxide (Mag-Ox) 400 Mg Tab 400 MG PO TID, TAB Mirtazapine (Mirtazapine) 15 Mg Tab 1 TAB PO HS, #30 Multivitamin (Multivitamin) Tab 1 TAB PO DAILY, TAB Naproxen Sodium-Diphenhydramin (Aleve Pm 220-25 mg) 1 Tab Tab 1 TAB PO QPM PRN for Pain Omeprazole (Prilosec) 20 Mg Capcr 20 MG PO QAM, CAP Ondasetron Odt (Zofran Odt) 4 Mg Tab 4 MG SL Q6H for Nausea, #20 TAB Oxcarbazepine (Trileptal) 600 Mg Tab 600 MG PO BID Oxycodone Ir (Roxicodone Ir) 5 Mg Tab 5 MG PO Q8 PRN for Pain, TAB Probiotic Product (Probiotic) 1 Cap Cap 1 CAP PO DAILY Promethazine (Phenergan ) 12.5 Mg Tab 1 TAB PO BID PRN for Nausea or Vomiting, #90 Ranitidine HCl (Ranitidine HCl) 150 Mg Tab 150 MG PO BID Rifaximin (Xifaxan) 550 Mg Tab 550 MG PO BID, TAB Spironolactone (Aldactone) 25 Mg Tab 25 MG PO QAM, TAB Sumatriptan Succinate (Imitrex) 100 Mg Tab 100 MG PO UD PRN for Migraine, TAB Topiramate (Topamax) 50 Mg Tab 50 MG PO BID TOTAL DOSE: 75MG BID Topiramate (Topamax ) 25 Mg Tab 25 MG PO BID TOTAL DOSE: 75MG BID Triamcinolone Acetonide (Nasal (Nasacort Allergy 24Hr) 55 Mcg/Act Spr 1 SPRAY ABRAHAN DAILY Vitamin A (Gnp Vitamin A) 8,000 Unit Cap 8000 UNITS PO DAILY Zinc Gluconate (Zinc) 50 Mg Tab 50 MG PO BID Discontinued Medications: Carbidopa/Levodopa (Sinemet 25MG/250MG) Tab 1 TAB PO TID, TAB Discharge Exam Physical Exam: General Appearance: no apparent distress ENT: pharynx normal Neck: no JVD Respiratory/Chest: lungs clear, no respiratory distress, no accessory muscle use Cardiovascular: regular rate, rhythm, no gallop, no murmur, normal peripheral pulses Abdomen / GI: normal bowel sounds, non tender, soft, no organomegaly Extremities: + pedal edema (trace b/l ) Neurologic/Psychiatric: alert, oriented x 3, + pertinent finding (no asterixis at time of discharge) Skin: no rash Hospital Course HISTORY OF PRESENT ILLNESS: Patient is a 51 year old female with long-standing history of gastroparesis, NAFLD cirrhosis, and numerous episodes of hepatic encephalopathy who was admitted to [facility] for hepatic encephalopathy, nausea, vomiting and constipation. Patient reported she had been having nausea and vomiting for about one week prior to admission. She reported it was worse after eating and that she often feels full throughout the day even with minimal PO intake. She reported she can have a few bites of food and feel full. Vomiting resolves her symptoms. She has known gastroparesis but does not follow gastroparetic diet. She also was started on spironolactone and her remeron dose was increased and she inquired if these medications contributed to her symptoms. HOSPITAL COURSE: The patient's presentation of vomiting was felt to be due to gastroparesis. Her vomiting gradually resolved while hospitalized with supportive care measures. She was also treated for hepatic encephalopathy with lactulose and rifaximin. Her ammonia level prior to discharge was in the 50s. The patient developed hyponatremia while here. Urine Na & osm along with serum osm were not consistent with a volume contracted state. Rather, the hyponatremia was felt to be due to salt excess and volume overload. She was given diuretics with improvement in her sodium to 131 prior to discharge. She was asked to take 2 additional days of bumex at home following discharge along with her daily spironolactone as previous. Other issues addressed - 1. UTI - initially was sent home on keflex but urine culture ultimately revealed klebsiella that was intermediate resistant to keflex. She was changed to cipro for a 5-day course. 2. right-sided cerumen impaction - asked to follow-up with her PCP for irrigation. Can use debrox solution BID at home if desired prior to in-office irrigation. 3. hypomagnesemia - this is a chronic issue but was acutely worse while here due to diarrhea and diuretics. Magnesium level was 2.5 at discharge. 4. acute diastolic CHF - the patient complained of mild cough and chest x-ray was consistent with pulmonary edema. She had copious diuresis with IV bumex. Again she will take 2 more days of oral bumex following discharge. Weight at discharge was 268 pounds; patient reports baseline weight of about 265 pounds. All other medical problems remained stable while here. She will continue outpatient physical therapy for her chronic ambulatory dysfunction. Total Time Spent: Greater than 30 minutes This includes examination of the patient, discharge planning, medication reconciliation, and communication with other providers. Discharge Instructions Please refer to the electronic Patient Visit Report (Discharge Instructions) for additional information. Follow-Up Dr. Olena Little - FriJanuary 01 at 12:50 pm Additional Copies To Olena Little,
[2017-01-01] MEDS ORDERED: [UNRECOGNIZED DRUG - CODE] PO (07:45)
[2017-01-01] MEDS ORDERED: OXYC1TAB3 PO (07:45)
== END 2016-12-25 18:15 | disposition home or self-care (01) | DRG 441 ==
LOC: EDBD 11:30 → C.EDA 11:31 → INTOOBSV 14:14 → C.MS2W 14:14 → EDBEDREQ 14:37 → ENRESERV 15:44 → OBSVTOIN 12-23 14:28 → C.MS2W 12-25 17:11
PROVIDERS: ADMIT Family Medicine; ATTEND Internal Medicine
DX: K72.90 Hepatic failure, unspecified without coma (principal); I50.31 Acute diastolic (congestive) heart failure; E72.20 Disorder of urea cycle metabolism, unspecified; D61.818 Other pancytopenia; E87.1 Hypo-osmolality and hyponatremia; N39.0 Urinary tract infection, site not specified; E11.43 Type 2 diabetes mellitus with diabetic autonomic (poly)neuropathy; B96.1 Klebsiella pneumoniae [K. pneumoniae] as the cause of diseases classified elsewhere; Z16.19 Resistance to other specified beta lactam antibiotics; K59.03 Drug induced constipation; T50.0X5A Adverse effect of mineralocorticoids and their antagonists, initial encounter; K75.81 Nonalcoholic steatohepatitis (NASH); K74.60 Unspecified cirrhosis of liver; E83.42 Hypomagnesemia; H61.21 Impacted cerumen, right ear; G40.909 Epilepsy, unspecified, not intractable, without status epilepticus; F31.9 Bipolar disorder, unspecified; E03.9 Hypothyroidism, unspecified; G20 Parkinson's disease; G43.909 Migraine, unspecified, not intractable, without status migrainosus; J45.909 Unspecified asthma, uncomplicated; K27.9 Peptic ulcer, site unspecified, unspecified as acute or chronic, without hemorrhage or perforation; Z79.1 Long term (current) use of non-steroidal anti-inflammatories (NSAID); Z79.2 Long term (current) use of antibiotics; Z79.4 Long term (current) use of insulin; Z79.51 Long term (current) use of inhaled steroids; Z79.899 Other long term (current) drug therapy; Z90.49 Acquired absence of other specified parts of digestive tract; Z90.710 Acquired absence of both cervix and uterus; Z82.49 Family history of ischemic heart disease and other diseases of the circulatory system; Z81.8 Family history of other mental and behavioral disorders; Z88.0 Allergy status to penicillin; Z88.1 Allergy status to other antibiotic agents; Z88.5 Allergy status to narcotic agent; Z88.8 Allergy status to other drugs, medicaments and biological substances

== ENCOUNTER 2016-12-30 09:41 | Observation (INO) | payer BC, OTHER ==
[~2016-12-30] VITALS: Ht 165.1 cm; Wt 94.8 kg
[~2016-12-30 09:41] MED LIST changes: +BUME1TAB PO; -CARB25TA14 PO; +CIPR-255 PO; +FLNIN/ NAE; -MIRT30TA2 PO; +PROM12.57 PO; +RMR15 PO
[2016-12-30] MEDS ORDERED: SODIUM CHLORIDE 0.9% 1000ML 1,000 ML IV STA (10:10)
--- NOTE | 2016-12-30 10:11 | EMERGENCY ROOM VISIT NOTE ---
History Report prepared by Broderick: Amalia Landaverde Under the Supervision of: Dr. Silverio Lemus M.D. First contact with patient: 10:01 Chief Complaint: CONFUSION Stated Complaint: SLOW,CONFUSED STATE, LOW APPETITE History of Present Illness The patient is a 51 year old female who presents to the Emergency Room with complaints of persistent confusion that began several days ago. According to the patient's the patient has had a decrease in responsiveness. He states that the patient has a history of liver failure, noting that she is on Lactulose daily. The patient's states that the patient did not take her Lactulose yesterday due to persistent diarrhea, but states that she resumed the medication normally this morning. The patient's states that the patient has a history of diabetes and a seizure disorder. He states that the patient had been on Depakote and Dilantin for her seizures. The patient's denies the patient having any history of alcohol abuse. He states that the patient is on pain medications and complains of chronic back pain. The patient's states that the patient has been wheezing, but denies any fever, chills, cough, or congestion. Source of History: spouse/significant other () Onset: several days ago Position: other (global) Quality: other (confusion) Timing: other (persistent) Associated Symptoms: + back pain, No fevers, No chills Note: Associated Symptoms: wheezing Review of Systems See HPI for pertinent positives and negatives. A total of ten systems were reviewed and were otherwise negative. 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 (20) Seizure disorder Surgical Problems: (1) H/O nasal septoplasty (2) History of appendectomy (3) History of cholecystectomy (4) History of hysterectomy (5) History of kyphoplasty (6) History of tonsillectomy (7) s/p spinal stimulator placement Family History Depression Hypertension Social History Smoking Status: Never Smoker Alcohol Use: none Drug Use: none Marital Status: Housing Status: lives with significant other Occupation Status: disabled Current/Historical Medications Scheduled Ascorbic Acid (Vitamin C), 1,000 MG PO DAILY Bumetanide (Bumex), 0.5 TAB PO DIRECTED Ciprofloxacin Hcl (Cipro), 500 MG PO BID Cranberry (Vaccinium Macrocarp (Cranberry), 1 TAB PO TID Ferrous Sulfate (Ferrous Sulfate), 325 MG PO QPM Fluticasone Propionate (Fluticasone Propionate), 1 SPRAY ABRAHAN DAILY Insulin Glargine (Toujeo Solostar), 38 UNITS SQ QAM Insulin Lispro (Human) (Humalog Kwikpen), UNITS SC UD Lactulose (Lactulose), 20 GM PO BID Lecithin (Cvs Lecithin), 1 CAP PO DAILY Levetiracetam (Levetiracetam), 2,000 MG PO BID Levothyroxine Sodium (Levothyroxine Sodium), 75 MCG PO QAM Lutein-Zeaxanthin (Lutein), 1 CAP PO DAILY Magnesium Oxide (Mag-Ox), 400 MG PO TID Mirtazapine (Mirtazapine), 1 TAB PO HS Multivitamin (Multivitamin), 1 TAB PO DAILY Omeprazole (Prilosec), 20 MG PO QAM Ondasetron Odt (Zofran Odt), 4 MG SL Q6H Oxcarbazepine (Trileptal), 600 MG PO BID Probiotic Product (Probiotic), 1 CAP PO DAILY Ranitidine HCl (Ranitidine HCl), 150 MG PO BID Rifaximin (Xifaxan), 550 MG PO BID Spironolactone (Aldactone), 25 MG PO QAM Topiramate (Topamax), 50 MG PO BID Topiramate (Topamax ), 25 MG PO BID Triamcinolone Acetonide (Nasal (Nasacort Allergy 24Hr), 1 SPRAY ABRAHAN DAILY Vitamin A (Gnp Vitamin A), 8,000 UNITS PO DAILY Zinc Gluconate (Zinc), 50 MG PO BID Scheduled PRN Albuterol Hfa (Ventolin Hfa), 2-4 PUFFS INH Q6H PRN for Shortness of Breath Epinephrine (Epipen), 0.3 MG IM UD PRN for ALLERGIC REACTION Glucose-Vitamin C (Glucose), 1 CHW PO UD PRN for Hypoglycemia Naproxen Sodium-Diphenhydramin (Aleve Pm 220-25 mg), 1 TAB PO QPM PRN for Pain Oxycodone Ir (Roxicodone Ir), 5 MG PO Q8 PRN for Pain Promethazine (Phenergan ), 1 TAB PO BID PRN for Nausea or Vomiting Sumatriptan Succinate (Imitrex), 100 MG PO UD PRN for Migraine Allergies Coded Allergies: Amoxicillin (Verified Allergy, Intermediate, HIVES; Has tolerated cephalosporins (Rocephin, Ceftin,Keflex, 12/30/16) Azithromycin (Verified Allergy, Intermediate, HIVES, 12/30/16) Baclofen (Verified Allergy, Intermediate, RASH, 12/30/16) Butalbital (Verified Allergy, Intermediate, HIVES, 12/30/16) Clarithromycin (Verified Allergy, Intermediate, RASH, 12/30/16) Dicyclomine (Verified Allergy, Intermediate, HIVES, 12/30/16) HIVES Penicillins (Verified Allergy, Intermediate, RASH; has tolerated cephs ( Rocephin, Keflex, Ceftin), 12/30/16) PT STATES SHE GETS WELTS FROM CIPRO,LEVAQUIN ALLERGY PER DR ROBLES Tetracyclines (Verified Allergy, Intermediate, DOXYCYCLINE-HIVES, 12/30/16) Sulindac (Verified Allergy, Mild, ALLERGY LISTED "CLONDORAL"--HIVES, ) Adhesives (Verified Allergy, Unknown, RASH, DUODERM=RED,ITCHY, 12/30/16) PLASTIC TAPE IS OK!!! DUODERM=RED,ITCHY Metronidazole (Verified Allergy, Unknown, SEIZURE, 12/30/16) Tramadol (Verified Allergy, Unknown, SEIZURES, 12/30/16) Metoclopramide (Verified Adverse Reaction, Severe, SEIZURES, 12/30/16) Blueberry (Verified Adverse Reaction, Mild, STOMACH PAIN, 12/30/16) Furosemide (Verified Adverse Reaction, Unknown, HIVES, 12/30/16) Physical Exam Vital Signs Date Time Temp Pulse Resp B/P (MAP) Pulse Ox O2 Delivery O2 Flow Rate FiO2 10/2/17 13:06 82 26 100 12/30/16 13:01 133/71 12/30/16 12:36 87 17 100 12/30/16 12:31 140/70 12/30/16 12:16 88 28 100 12/30/16 12:01 129/79 12/30/16 11:31 129/75 12/30/16 11:16 91 20 99 12/30/16 11:11 90 24 99 12/30/16 11:00 123/73 12/30/16 10:41 88 29 100 12/30/16 10:31 115/66 12/30/16 10:11 90 12/30/16 10:11 91 21 100 12/30/16 10:09 138/72 12/30/16 09:44 36.9 94 20 144/69 100 Room Air Physical Exam GENERAL: Awake, chronically ill appearing, uncomfortable, but in no distress HENT: Normocephalic, atraumatic. Oropharynx with dry mm. EYES: Normal conjunctiva. Sclera non-icteric. NECK: Supple. No nuchal rigidity. FROM. No JVD. RESPIRATORY: Clear to auscultation. CARDIAC: Regular rate, normal rhythm. Extremities warm and well perfused. Pulses equal. ABDOMEN: Obese abdomen, but soft, non-distended. No tenderness to palpation. No rebound or guarding. No masses. RECTAL: Deferred. MUSCULOSKELETAL: Chest examination reveals no tenderness. The back is symmetrical on inspection without obvious abnormality. There is no CVA tenderness to palpation. No joint edema. LOWER EXTREMITIES: Calves are equal size bilaterally and non-tender. 1+ lower extremity edema. No discoloration. NEURO: GCS 12. Slight asterixis bilaterally SKIN: Slightly jaundiced. No rash noted. Medical Decision & Procedures ER Provider Diagnostic Interpretation: Radiology results as stated below per my review and radiologist interpretation: HEAD CT NONCONTRAST CT DOSE: 614.27 mGy.cm HISTORY: Altered mental status TECHNIQUE: Multiaxial CT images of the head were performed without the use of intravenous contrast. Automated exposure control was utilized for this study. A dose lowering technique was utilized adhering to the principles of ALARA. Comparison: Head CT 10/19/2016. Findings: The paranasal sinuses and mastoid air cells are clear. The calvarium and skull base are intact. The ventricles and sulci are within normal limits. There is no mass, hematoma, midline shift, or acute infarct. Impression: No acute intracranial abnormality. Electronically signed by: Talon Cruz M.D. 12/30/2016 12:07 PM Dictated Date/Time: 12/30/2016 12:03 PM CHEST ONE VIEW PORTABLE CLINICAL HISTORY: 51 years-old Female presenting with ABDOMINAL PAIN/GI. TECHNIQUE: Portable upright AP view of the chest was obtained. COMPARISON: 12/24/2016. FINDINGS: Right internal jugular Mediport terminates at the superior cavoatrial junction and has been accessed. Cardiac silhouette mildly prominent, unchanged. Point vascular congestion is no longer apparent. Lungs and pleural spaces clear. Extensive internal fixation hardware in the left humeral head and proximal metaphysis. Upper abdomen normal. IMPRESSION: 1. Cardiomegaly with interval resolution of pulmonary vascular congestion. Electronically signed by: Davis Gallegos M.D. 12/30/2016 11:00 AM Dictated Date/Time: 12/30/2016 10:58 AM Laboratory Results 12/30/16 10:03 Red Blood Count 2.60, Mean Corpuscular Volume 97.7, Mean Corpuscular Hemoglobin 36.2, Mean Corpuscular Hemoglobin Concent 37.0, Mean Platelet Volume 9.1, Neutrophils (%) (Auto) 62.1, Lymphocytes (%) (Auto) 24.5, Monocytes (%) (Auto) 8.6, Eosinophils (%) (Auto) 3.3, Basophils (%) (Auto) 1.1, Neutrophils # (Auto) 1.67, Lymphocytes # (Auto) 0.66, Monocytes # (Auto) 0.23, Eosinophils # (Auto) 0.09, Basophils # (Auto) 0.03 12/30/16 10:03 Test 12/30/16 10:03 12/30/16 10:15 12/30/16 12:05 White Blood Count 2.69 K/uL (4.8-10.8) Red Blood Count 2.60 M/uL (4.2-5.4) Hemoglobin 9.4 g/dL (12.0-16.0) Hematocrit 25.4 % (37-47) Mean Corpuscular Volume 97.7 fL (80-100) Mean Corpuscular Hemoglobin 36.2 pg (25-34) Mean Corpuscular Hemoglobin Concent 37.0 g/dl (32-36) Platelet Count 82 K/uL (130-400) Mean Platelet Volume 9.1 fL (7.4-10.4) Neutrophils (%) (Auto) 62.1 % Lymphocytes (%) (Auto) 24.5 % Monocytes (%) (Auto) 8.6 % Eosinophils (%) (Auto) 3.3 % Basophils (%) (Auto) 1.1 % Neutrophils # (Auto) 1.67 K/uL (1.4-6.5) Lymphocytes # (Auto) 0.66 K/uL (1.2-3.4) Monocytes # (Auto) 0.23 K/uL (0.11-0.59) Eosinophils # (Auto) 0.09 K/uL (0-0.5) Basophils # (Auto) 0.03 K/uL (0-0.2) RDW Standard Deviation 54.9 fL (36.4-46.3) RDW Coefficient of Variation 15.5 % (11.5-14.5) Immature Granulocyte % (Auto) 0.4 % Immature Granulocyte # (Auto) 0.01 K/uL (0.00-0.02) Toxic Granulation 1+ Platelet Estimate DECREASED Anisocytosis PRESENT Prothrombin Time 12.7 SECONDS (9.0-12.0) Prothromb Time International Ratio 1.2 (0.9-1.1) Anion Gap 11.0 mmol/L (3-11) Estimated GFR () 122.3 Estimated GFR (Non- 105.5 BUN/Creatinine Ratio 15.5 (10-20) Calcium Level 8.2 mg/dl (8.5-10.1) Total Bilirubin 1.0 mg/dl (0.2-1) Direct Bilirubin 0.4 mg/dl (0-0.2) Aspartate Amino Transf (AST/SGOT) 58 U/L (15-37) Alanine Aminotransferase (ALT/SGPT) 51 U/L (12-78) Alkaline Phosphatase 203 U/L (45-117) Ammonia 168.0 umol/L (11-32) Total Protein 5.7 gm/dl (6.4-8.2) Albumin 2.9 gm/dl (3.4-5.0) Lipase 94 U/L (73-393) Phenytoin (Dilantin) Level 0.6 mcg/mL (10-20) Valproic Acid (Depakene) Level 6 mcg/ml (50-100) Bedside Lactic Acid Venous 2.27 mmol/L (0.90-1.70) Urine Color YELLOW Urine Appearance CLOUDY (CLEAR) Urine pH 8.5 (4.5-7.5) Urine Specific Woodson 1.019 (1.000-1.030) Urine Protein NEG (NEG) Urine Glucose (UA) NEG (NEG) Urine Ketones NEG (NEG) Urine Occult Blood NEG (NEG) Urine Nitrite NEG (NEG) Urine Bilirubin NEG (NEG) Urine Urobilinogen NEG (NEG) Urine Leukocyte Esterase NEG (NEG) Urine WBC (Auto) 0 /hpf (0-5) Urine RBC (Auto) 0-4 /hpf (0-4) Urine Hyaline Casts (Auto) 1-5 /lpf (0-5) Urine Epithelial Cells (Auto) 0-5 /lpf (0-5) Urine Bacteria (Auto) NEG (NEG) Laboratory results reviewed by me Medications Administered Medications (Trade) Dose Ordered Sig/Danita Route Start Time Stop Time Status Last Admin Dose Admin Sodium Chloride 1,000 ml @ 999 mls/hr Q1H1M STAT IV 12/30/16 10:10 12/30/16 11:10 DC 12/30/16 10:10 999 MLS/HR Lactulose (Chronulac Syrup) 30 gm NOW STAT PO 12/30/16 12:21 12/30/16 12:26 DC 12/30/16 12:50 30 GM Cefepime HCl 2000 mg/Dextrose 112.5 ml @ 200 mls/hr NOW STAT IV 12/30/16 12:21 12/30/16 12:54 DC 12/30/16 14:00 200 MLS/HR Metronidazole (Flagyl / Nss) 500 mg NOW STAT IV 12/30/16 12:21 12/30/16 12:26 DC 12/30/16 12:50 500 MG Vancomycin HCl 2000 mg/Sodium Chloride 540 ml @ 200 mls/hr TODAY@1245 IV 12/30/16 12:45 12/30/16 15:00 DC 12/30/16 14:00 200 MLS/HR Oxycodone HCl (Roxicodone Immediate Rel Tab) 5 mg Q8 PRN PO 12/30/16 13:15 01/13/17 13:14 12/30/16 16:16 5 MG ECG Indication: other (confusion) Rate (beats per minute): 89 Rhythm: normal sinus Findings: no acute ischemic change, other (normal axis) ED Course 1003: The patient was evaluated in room A9B. A complete history and physical exam was performed. 1010: Ordered Sodium Chloride 1000 ml @ 999 mls/hr IV. 1200: I reevaluated the patient and she is resting. I discussed the exam findings with her and I discussed the treatment plan. He verbalized complete understanding and agreement. The patient will be evaluated for further treatment. 1221: Ordered Flagyl/Nss 500 mg IV, Cefepime HCl 2000 mg/Dextrose 112.5 ml @ 200 mls/hr IV, Lactulose 30 gm PO. 1223: The patients case was discussed with TAVARES Marshall. He will evaluate the patient for further treatment. 1245: Ordered Vancomycin HCl 2000 mg/Sodium Chloride 540 ml @ 200 mls/hr IV Protocol IV. Medical Decision The patient's presentation and history were concerning for Sepsis, pneumonia, bronchitis, UTI, SBP, dehydration, electrolyte abnormality, hyperammonemia/ encephalopathy, intracranial hemorrhage. I reviewed the patient's past medical history, medications, and the nursing notes as described above. The patient is a 51 y/o woman with ELSD, hepatic encephalopathy on lactulose who presents to the ED with worsening confusion per HPI. reports holding lactulose yesterday 2/2 increased diarrhea but otherwise denies any missed doses. On arrival patient is chronically ill appearing, drowsy with GCS of 12, AFVSS. On exam has mild asterixis. Abdomen is obese but soft, nondistended without significant ascites. SBP not likely. WBC wnl. POC lactate 2.6. Ammonia acutely elevated to 160s compared to previous 6 days ago.CXR unremarkable. CXR improved from prior. Given POC lactate and tachypnea on arrival, concern for possible early sepsis given recent admission and indwelling port-a-cath although site appears c/d/i. Given Vanc/Zosyn empirically. Lactulose given. CT head negative. Case d/w TAVARES Marshall hospitalist, who will admit the patient for further management. Head Trauma GCS Score: 12 Medication Reconcilliation Current Medication List: was personally reviewed by me Blood Pressure Screening Patient's blood pressure: Normal blood pressure Blood pressure disposition: Did not require urgent referral Consults Time Called: 1217 Consulting Physician: TAVARES Marshall Returned Call: 1223 The patients case was discussed with TAVARES Marshall. He will evaluate the patient for further treatment. Impression Primary Impression: Hepatic encephalopathy Additional Impressions: Hyperammonemia Sepsis Critical Care I have personally spent greater than 35 minutes of critical care time in the direct management of this patient. This includes bedside care, interpretation of diagnostic studies, and testing, discussion with consultants, patient, and family members, and other required patient management activities. This 35 minutes is in excess of all separately billable procedures. Scribe Attestation The scribe's documentation has been prepared under my direction and personally reviewed by me in its entirety. I confirm that the note above accurately reflects all work, treatment, procedures, and medical decision making performed by me. Departure Information Dispostion Being Evaluated By Hospitalist Referrals Olena Little DO (PCP) Problem Qualifiers
[2016-12-30 10:28] LABS: HEMATOCRIT 25.4 % (37-47); MEAN CELL VOLUME 97.7 fL (80-100); MEAN CORPUSCULAR HEMOGLOBIN 36.2 pg (25-34); WHITE BLOOD COUNT 2.69 K/uL (4.8-10.8)
[2016-12-30 10:35] LABS: INR 1.2 (0.9-1.1); PROTHROMBIN TIME (PATIENT) 12.7 SECONDS (9.0-12.0)
[2016-12-30 10:46] LABS: ALT/SGPT 51 U/L (12-78); BLOOD UREA NITROGEN 9 mg/dl (7-18); BUN/CREATININE RATIO 15.5 (10-20); CALCIUM 8.2 mg/dl (8.5-10.1); CARBON DIOXIDE 19 mmol/L (21-32); CHLORIDE 110 mmol/L (98-107); GLUCOSE 170 mg/dl (70-99); POTASSIUM 3.8 mmol/L (3.5-5.1); SODIUM 140 mmol/L (136-145)
[2016-12-30 10:48] LABS: ALKALINE PHOSPHATASE 203 U/L (45-117); AST/SGOT 58 U/L (15-37)
[2016-12-30 10:54] LABS: MEAN PLATELET VOLUME 9.1 fL (7.4-10.4); PLATELET COUNT 82 K/uL (130-400)
[2016-12-30 10:55] LABS: ANISOCYTOSIS PRESENT; BASO % 1.1 %; BASO ABS # 0.03 K/uL (0-0.2); COMPLETE YES; EOS % 3.3 %; IG% 0.4 %; LYMPH % 24.5 %; LYMPH ABS # 0.66 K/uL (1.2-3.4); MONO % 8.6 %; NEUT % 62.1 %; PLT ESTIMATE DECREASED; TOXIC GRANULATION 1+
--- NOTE | 2016-12-30 11:01 | DIAGNOSTIC IMAGING REPORT ---
CHEST ONE VIEW PORTABLE CLINICAL HISTORY: 51 years-old Female presenting with ABDOMINAL PAIN/GI. TECHNIQUE: Portable upright AP view of the chest was obtained. COMPARISON: 12/24/2016. FINDINGS: Right internal jugular Mediport terminates at the superior cavoatrial junction and has been accessed. Cardiac silhouette mildly prominent, unchanged. Point vascular congestion is no longer apparent. Lungs and pleural spaces clear. Extensive internal fixation hardware in the left humeral head and proximal metaphysis. Upper abdomen normal. IMPRESSION: 1. Cardiomegaly with interval resolution of pulmonary vascular congestion. Electronically signed by: Davis Gallegos M.D. 12/30/2016 11:00 AM Dictated Date/Time: 12/30/2016 10:58 AM
--- NOTE | 2016-12-30 12:08 | DIAGNOSTIC IMAGING REPORT ---
HEAD CT NONCONTRAST CT DOSE: 614.27 mGy.cm HISTORY: Altered mental status TECHNIQUE: Multiaxial CT images of the head were performed without the use of intravenous contrast. Automated exposure control was utilized for this study. A dose lowering technique was utilized adhering to the principles of ALARA. Comparison: Head CT 10/19/2016. Findings: The paranasal sinuses and mastoid air cells are clear. The calvarium and skull base are intact. The ventricles and sulci are within normal limits. There is no mass, hematoma, midline shift, or acute infarct. Impression: No acute intracranial abnormality. Electronically signed by: Talon Cruz M.D. 12/30/2016 12:07 PM Dictated Date/Time: 12/30/2016 12:03 PM
[2016-12-30 12:18] LABS: URINE APPEARANCE CLOUDY (CLEAR); URINE BILIRUBIN NEG (NEG); URINE COLOR YELLOW; URINE EPITHELIAL CELL AUTO 0-5 /lpf (0-5); URINE NITRITE NEG (NEG); URINE PH 8.5 (4.5-7.5); URINE SPECIFIC GRAVITY 1.019 (1.000-1.030); UROBILINOGEN NEG (NEG); ZZUR CULT IF INDIC CLEAN CATCH NO
[2016-12-30 12:19] LABS: MANUAL MICROSCOPIC REQUIRED? NO; REVIEW REQ? NO
[2016-12-30] MEDS ORDERED: LACTULOSE SYRUP 20 GM/30 ML UDC PO STA (12:21)
[2016-12-30] MEDS ORDERED: CEFEPIME IV 2,000 MG in DEXTROSE 5% 100ML 100 ML IV STA (12:21)
[2016-12-30] MEDS ORDERED: METRONIDAZOLE 500MG / 100ML NSS IV STA (12:21)
[2016-12-30] MEDS ORDERED: VANCOMYCIN INJ 1,900 MG in SODIUM CHLORIDE 0.9% 500ML 500 ML IV STA (12:26)
[2016-12-30] MEDS ORDERED: VANCOMYCIN INJ 2,000 MG in SODIUM CHLORIDE 0.9% 500ML 500 ML IV SCH (12:45)
[2016-12-30] MEDS ORDERED: MAGNESIUM HYDROXIDE SUSP 30 ML UDC PO PRN (13:15)
[2016-12-30] MEDS ORDERED: SUMATRIPTAN SUCC TAB 100 MG TAB PO PRN (13:15)
[2016-12-30] MEDS ORDERED: HEPARIN SOD 5000 UNIT/0.5 ML CARP SQ SCH (13:15)
[2016-12-30] MEDS ORDERED: PROMETHAZINE HCL 25 MG TAB PO PRN (13:15)
[2016-12-30] MEDS ORDERED: ALUMINUM/MAGNESIUM/SIMETH (MAALOX MAX) 30 ML UDC PO PRN (13:15)
[2016-12-30] MEDS ORDERED: GLUCOSE 5 GM CHEWABLE TABLET PO PRN (13:15)
[2016-12-30] MEDS ORDERED: ALBUTEROL HFA 8 GM INHALER INH PRN (13:15)
[2016-12-30] MEDS ORDERED: LACTULOSE 200GM/700ML WTR ENEMA PR ONE (13:30)
[2016-12-30 14:00] VITALS: O2SAT 99; BMI 34.8
[2016-12-30] MEDS ORDERED: PHARMACY GLYCEMIC MGMT CONSULT PRN (14:03)
[2016-12-30 14:04] VITALS: Ht 165.1 cm; Wt 94.8 kg
[2016-12-30 14:28] VITALS: O2SAT 99
--- NOTE | 2016-12-30 14:34 | HISTORY & PHYSICAL EXAMINATION ---
DATE OF ADMISSION: 12/30/2016 OBSERVATION ADMITTING DIAGNOSIS: Encephalopathy, hepatic. HISTORY OF PRESENT ILLNESS: Ms. Munson is a 51-year-old female well known to our service who suffers from seizure disorder and chronic liver failure with recurrent encephalopathy. The patient was recently discharged on December 25 from our facility where she presented with high ammonia level was put on her normal daily regimen of lactulose and Xifaxan and had resolution of her high ammonia and encephalopathy and was discharged home. She returns in a somewhat obtunded state. Her ammonia is 168. Her states that they had a celebratory dinner, which was a high protein load. The patient also stopped her lactulose for one dose with concerns for diarrhea. She is able to respond to questions, but frequently lays and stares into space. Her states that she has not had any other recent changes in her health. She was treated on discharge for urinary tract infection which was Klebsiella which was sensitive to everything with the exception of cefazolin. The states she has had no recent cough, fevers, abdominal pain, had no urinary complaints. In the Emergency Department, she had a point of care lactic acid was slightly elevated, although a serum was coagulated. PAST MEDICAL HISTORY: For asthma, bipolar disorder, cirrhosis, mild pancytopenia, diabetes mellitus, diabetic gastroparesis, migraine headaches, peptic ulcer disease, portal hypertension, seizure disorder, previous septoplasty, appendectomy, cholecystectomy, hysterectomy, kyphoplasty, tonsillectomy and previous nonfunctioning spinal cord stimulator. FAMILY HISTORY: For depression, hypertension. SOCIAL HISTORY: The patient has never smoked, does not drink alcohol. Lives with her and is on disability. ALLERGIES: SHE HAS MULTIPLE ALLERGIES, WHICH I REVIEWED IN THE CHART. OF NOTE, LAST ADMISSION SHE SAYS SHE IS ALLERGIC TO CIPROFLOXACIN, but at this point in time it does not appear that is the case. MEDICATIONS: Vitamin C 1000 a day, iron 325 a day, Flonase 1 spray a day, Toujeo 38 units in the morning, insulin sliding scale, lactulose 20 grams b.i.d., Keppra 2000 b.i.d., Synthroid 75 mcg a day, Lutein 1 capsule a day, mag oxide 400 t.i.d., mirtazapine 1 tablet at bedtime, multivitamin once a day, Prilosec 20 a day, Zofran 4 mg q. 6 hours p.r.n., Trileptal 600 b.i.d., probiotic daily, Zantac 150 b.i.d., Xifaxan 550 b.i.d., spironolactone 25 q.a.m., Topamax 75 b.i.d., Nasacort as needed, vitamin A 8000 units a day and zinc 50 mg b.i.d. She also has p.r.n. pain medication of oxycodone, Phenergan, Imitrex, albuterol and an EpiPen. REVIEW OF SYSTEMS: Unobtainable due to the patient's obtunded state. As mentioned in HPI, the states that she has had no recent complaints, although she has only been home for a brief period of time prior to her readmission. PHYSICAL EXAMINATION: GENERAL: She is in her usual condition slightly leaning to the right. VITAL SIGNS: Her temperature is 36.9, heart rate is 82, respiration rate 17-26, BP 133/71, O2 sat 100% on room air. HEENT: Her pupils do react to light. Extraocular muscles cannot be checked as she was not cooperative. Oropharynx is clear. Gag reflex is present. NECK: Without lymphadenopathy, JVD, or thyromegaly. HEART: Regular with a slight systolic murmur at the right upper sternal border. LUNGS: Have decreased breath sounds with some mild crackles at the bases which is most likely from atelectasis, so she is not taking good full deep breaths. BACK: Her spine is not tender she has no CV angle tenderness. ABDOMEN: Slightly protuberant, normoactive bowel sounds, soft, nontender, no fluid wave. EXTREMITIES: With trace edema bilaterally. There is no increased bruises or bleeding or lesions. LABORATORY DATA: She has a white count of 2.6, H&H is 29 the night before and perform 25.4, platelet count is low at 82. BUN and creatinine are 9 and 0.6. Her bilirubin is normal, AST is slightly high at 58, ALT is normal, alk phos is 203, ammonia is 168. As mentioned, the point of care lactic acid was 2.27, but the serum was clotted. Her valproic acid level was 6, which is low. INR is 1.2. Urinalysis is unremarkable. IMAGING DATA: She has a CT scan of her head which shows no acute intracranial abnormality. She had a chest x-ray showing cardiomegaly with resolution of pulmonary vascular congestion. ASSESSMENT AND PLAN: A 51-year-old female with hepatic encephalopathy with a recent urinary tract infection on admission. For the encephalopathy, the patient will be given a lactulose enema, continue on a daily lactulose and Xifaxan treatment with consult with Dr. Johns, to determine if there is any other strategies we can employ to reduce her frequent readmission state. Regarding her diabetes, the patient typically is very particular about taking her Toujeo. We will continue this if it is supplied by her using an insulin sliding scale at this point in time. With her seizure medications, will continue her Topamax, Keppra and Lamictal. Regarding her pancytopenia, this is likely related to her cirrhosis this has been stable as in the past. We did previously not use chemoprophylaxis due to her low platelet count. Regarding her psychological disturbance and bipolar disorder, we will maintain her home medications. Regarding her chronic headaches, will offer her Imitrex as needed. We will not continue antibiotics at this point in time unless we have proved that she has recurrent urinary tract infection. CYNDI
[2016-12-30] MEDS ORDERED: IV FLUIDS COMPLETED PRN (14:45)
[2016-12-30 14:49] VITALS: BP 148/78; PULSE 82; TEMP 36.7; O2SAT 100
[2016-12-30] MEDS ORDERED: UNIT DOSE COMPOUND PO ONE (15:00)
[2016-12-30] MEDS ORDERED: LACTULOSE SYRUP 200 GM, WATER, STERILE IRRIG 700 ML, BARCODE IDENTIFIER 1 EA PR ONE ×2 (15:00)
[2016-12-30] MEDS ORDERED: GLUCOSE 40% GEL 15 GM TUBE PO PRN (15:15)
[2016-12-30] MEDS ORDERED: DEXTROSE 50% 50 ML SYR IV PRN (15:15)
[2016-12-30] MEDS ORDERED: GLUCAGON FOR INJ 1 MG VIAL SQ PRN (15:15)
[2016-12-30] MEDS: SODIUM CHLORIDE 0.9% 1000ML 1,000 ML IV SCH (16:15)
[2016-12-30] MEDS: OXYCODONE HCL IR 5 MG TAB (IMMEDIATE RELEASE) PO PRN (16:16)
[2016-12-30] MEDS: INSULIN ASPART 100 UNITS/ML 3 ML PEN SC SCH ×2 (17:27→22:02)
--- NOTE | 2016-12-30 20:44 | Pharmacy Progress Note ---
Glycemic Control Intl Consult Date of Service Dec 30, 2016. Scope Glycemic Pharmacist consulted by Dr Rice on 12/30/16 for glycemic control and to write orders per [facility] inpatient glycemic control protocol Objective Weight (Kilograms): 94.800 Accuchecks BSG (last 24hrs): Test 12/30/16 10:03 12/30/16 15:11 12/30/16 16:58 12/30/16 19:29 Random Glucose 170 mg/dl (70-99) Bedside Glucose 113 mg/dl (70-90) 176 mg/dl (70-90) 154 mg/dl (70-90) Laboratory Data (last 24hrs) Test 12/30/16 10:03 Anion Gap 11.0 mmol/L BUN/Creatinine Ratio 15.5 Blood Urea Nitrogen 9 mg/dl Creatinine 0.60 mg/dl Potassium Level 3.8 mmol/L Sodium Level 140 mmol/L White Blood Count 2.69 K/uL Red Blood Count 2.60 M/uL Hemoglobin 9.4 g/dL Hematocrit 25.4 % Mean Corpuscular Volume 97.7 fL Mean Corpuscular Hemoglobin 36.2 pg Mean Corpuscular Hemoglobin Concent 37.0 g/dl Platelet Count 82 K/uL Mean Platelet Volume 9.1 fL Neutrophils (%) (Auto) 62.1 % Lymphocytes (%) (Auto) 24.5 % Monocytes (%) (Auto) 8.6 % Eosinophils (%) (Auto) 3.3 % Basophils (%) (Auto) 1.1 % Neutrophils # (Auto) 1.67 K/uL Lymphocytes # (Auto) 0.66 K/uL Monocytes # (Auto) 0.23 K/uL Eosinophils # (Auto) 0.09 K/uL Basophils # (Auto) 0.03 K/uL Recent Pertinent Medications Outpatient Anti-diabetic Regimen: * Toujeo 38 units HS plus Humalog with meals * A1c = 4.1 % 09/25/16 Risk Factors for Insulin Resistance: * Diet: type 2 diabetic diet Assessment & Plan ASSESSMENT: * ADA & AACE recommend a goal blood sugar range 140-180 mg/dl for the majority of critically ill & non-critically ill patients. However, more stringent targets may be selected in individual cases. Will utilize more stringent goal of 110-140mg/dl based on patient age & comorbidities. Additionally, tighter glycemic control is warranted to continue disease management. * Ms Munson is a 51 y/o female with a complex medical history of cirrhosis and bipolar disease who is well known to the glycemic service. Last consult was from January of last year when patient was on a office assistant insulin scale. During her previous admission last week, patient did require Toujeo 38 units daily with Novolog coverage. Since patient does not have her Toujeo today and will bring in late tomorrow morning, will schedule for a reduced dose of Lantus (20% of normal dose due to overlap with Toujeo and then a slightly reduced dose as patient is hospitalized). Plan for Toujeo starting 01/01/17. * For Novolog coverage, continued similar scale as previously ordered. PLAN FOR INPATIENT GLYCEMIC CONTROL: * Basal insulin with LANTUS 25 units SQ qAM x 1 then Toujeo starting 01/01/17 * Correctional Insulin with NOVOLOG per scale ACHS or Q6hrs while NPO * Goal Range: Low 110 mg/dL - High 140 mg/dL * Correction Factor: 15 mg/dL/unit * Nutritional / Prandial insulin per carb ratio of 1 unit per 5 grams CHO consumed * Please note that the plan above was derived based on current level of insulin resistance and hospital stress. These recommendations are appropriate for inpatient admission only. Plan of care upon discharge will need to be reassessed to avoid potential outpatient hypo/hyperglycemia. Thank you.
[2016-12-30] MEDS ORDERED: LEVETIRACETAM 500 MG TAB PO SCH (21:00)
[2016-12-30] MEDS: LACTULOSE SYRUP 20 GM/30 ML UDC PO SCH (21:54)
[2016-12-30] MEDS: MAGNESIUM OXIDE 400 MG TAB PO SCH (21:56)
[2016-12-30] MEDS: MIRTAZAPINE TAB 15 MG TAB PO SCH (21:57)
[2016-12-30] MEDS: TOPIRAMATE 25 MG TAB PO SCH (21:57)
[2016-12-30] MEDS: TOPIRAMATE 50 MG TAB PO SCH (21:58)
[2016-12-30] MEDS: OXCARBAZEPINE 150 MG TAB PO SCH (21:58)
[2016-12-30] MEDS: RANITIDINE HCL 150 MG TAB PO SCH (21:59)
[2016-12-30] MEDS: RIFAXIMIN TAB 550 MG TAB PO SCH (21:59)
[2016-12-31 00:38] VITALS: BP 130/83; PULSE 82; TEMP 36.7; O2SAT 100
[2016-12-31] MEDS: SODIUM CHLORIDE 0.9% 1000ML 1,000 ML IV SCH (01:46)
[2016-12-31] MEDS: LEVOTHYROXINE 75 MCG TAB PO SCH (05:02)
[2016-12-31 07:27] VITALS: BP 130/78; PULSE 70; TEMP 36.8; O2SAT 98
[2016-12-31] MEDS: LACTULOSE SYRUP 20 GM/30 ML UDC PO SCH ×2 (08:09→20:46)
[2016-12-31] MEDS: MAGNESIUM OXIDE 400 MG TAB PO SCH ×3 (08:12→20:49)
[2016-12-31] MEDS: RIFAXIMIN TAB 550 MG TAB PO SCH ×2 (08:12→20:49)
[2016-12-31] MEDS: LEVETIRACETAM 1000 MG PO SCH ×2 (08:12→20:50)
[2016-12-31] MEDS: RANITIDINE HCL 150 MG TAB PO SCH ×2 (08:16→20:47)
[2016-12-31] MEDS: OXCARBAZEPINE 150 MG TAB PO SCH ×2 (08:16→20:47)
[2016-12-31] MEDS: TOPIRAMATE 25 MG TAB PO SCH ×2 (08:16→20:48)
[2016-12-31] MEDS: TOPIRAMATE 50 MG TAB PO SCH ×2 (08:17→20:48)
[2016-12-31] MEDS: INSULIN ASPART 100 UNITS/ML 3 ML PEN SC SCH ×2 (08:27→13:28)
[2016-12-31 08:57] LABS: HEMATOCRIT 25.2 % (37-47); MEAN CELL VOLUME 97.7 fL (80-100); MEAN CORPUSCULAR HEMOGLOBIN 34.9 pg (25-34); MEAN CORPUSCULAR HGB CONC 35.7 g/dl (32-36); RED BLOOD COUNT 2.58 M/uL (4.2-5.4); WHITE BLOOD COUNT 2.31 K/uL (4.8-10.8)
[2016-12-31 09:00] LABS: MEAN PLATELET VOLUME 9.2 fL (7.4-10.4); PLATELET COUNT 71 K/uL (130-400)
[2016-12-31] MEDS ORDERED: TRIAMCINOLONE ACET NASAL SPRAY 10.8ML BTL NAE SCH (09:00)
[2016-12-31] MEDS ORDERED: LANTUS PER UNIT CHARGE SQ SCH (09:00)
[2016-12-31] MEDS ORDERED: FLUTICASONE PROPIONATE NA SPR 16 GM BTL NAE SCH (09:00)
[2016-12-31] MEDS ORDERED: INSULIN GLARGINE 300 UNITS/ML INJ SC SCH ×3 (09:00)
[2016-12-31 09:21] LABS: BUN/CREATININE RATIO 13.7 (10-20); CALCIUM 7.7 mg/dl (8.5-10.1); CREATININE 0.56 mg/dl (0.60-1.20); POTASSIUM 3.9 mmol/L (3.5-5.1)
[2016-12-31] MEDS: OXYCODONE HCL IR 5 MG TAB (IMMEDIATE RELEASE) PO PRN ×2 (10:53→19:30)
--- NOTE | 2016-12-31 11:54 | Gastrointestinal Consultation ---
Gastrointestinal Consultation Date of Consultation: Dec 31, 2016 Attending Physician: Erick Rice Consulting Physician: Erin Abraham Reason for Consultation: Elevated ammonia level History of Present Illness Patient is a 51 year old female w PMHx seizure, bipolar, cirrhosis, DM, gastroparesis, migraines, PUD, portal HTN, who presented to ED w confusion. She was just admitted here from 12/23-12/25 for similar symptoms of confusion consistent w hepatic encephalopathy and high ammonia levels. She was started back on her home meds of Lactulose and Xifaxan then w improvement of her ammonia and resolution of confusion. She was also treated for Klebsiella UTI upon DC. Pt's who brought her to ED yesterday said pt hasn't had any s/s of fever , chills, complaints of cough, abd pain. Admission labs showed ammonia level of 168. Head CT negative. CXR showed pulmonary congestions. Urine and blood cultures pending. This AM she is seen AAOx3, in no distress. Had a BM yesterday , ammonia level 97. Denies any NAVA, CP, SOB, abd pain. She said she takes her Lactulose as dosed (30g BID) at home but does her med administration and will decrease Lactulose if she is having diarrhea. Past Medical/Surgical History Medical Problems: (1) Acute bronchitis Status: Acute (2) Acute hepatic encephalopathy Status: Acute (3) Alkaline phosphatase elevation Status: Acute (4) Back pain Status: Acute (5) Bradycardia Status: Acute (6) Breakthrough seizure Status: Acute (7) Burn Status: Acute (8) Change in mental status Status: Acute (9) Change in mental status Status: Acute (10) Change in mental status Status: Acute (11) Chronic low back pain Status: Acute (12) Closed head injury Status: Acute (13) Dehydration Status: Acute (14) Dizziness Status: Acute (15) Facial laceration Status: Acute (16) Fall Status: Acute (17) Fall Status: Acute (18) Fatigue Status: Acute (19) Hemorrhoid Status: Acute (20) Hepatic encephalopathy Status: Acute (21) Hepatic encephalopathy Status: Acute (22) Hepatic encephalopathy Status: Acute (23) Hepatic encephalopathy Status: Acute (24) Hepatic encephalopathy Status: Acute (25) Hepatic encephalopathy Status: Acute (26) Hepatic encephalopathy Status: Acute (27) Hepatic encephalopathy Status: Acute (28) Hepatic encephalopathy Status: Acute (29) Hepatic encephalopathy Status: Acute (30) Hyperammonemia Status: Acute (31) Hyperammonemia Status: Acute (32) Hyperammonemia Status: Acute (33) Hyperammonemia Status: Acute (34) Hyperammonemia Status: Acute (35) Hypocalcemia Status: Acute (36) Hypocalcemia Status: Acute (37) Hypokalemia Status: Acute (38) Hypomagnesemia Status: Acute (39) Increased ammonia level Status: Acute (40) Left foot pain Status: Acute (41) Leukopenia Status: Acute (42) Low back pain Status: Acute (43) Migraine Status: Acute (44) Nausea & vomiting Status: Acute (45) Noncompliance with medication regimen Status: Acute (46) Pain in pelvis Status: Acute (47) Pancytopenia Status: Acute (48) Post-operative pain Status: Acute (49) Right ear pain Status: Acute (50) Right groin pain Status: Acute (51) Right hip pain Status: Acute (52) Right upper lobe pneumonia Status: Acute (53) RUQ abdominal pain Status: Acute (54) Sepsis Status: Acute (55) Vomiting Status: Acute (56) Weakness Status: Acute (57) Weakness Status: Acute (58) Weakness Status: Acute (59) Weakness Status: Acute Past Medical History: See above. Past Surgical History: Septoplasty, appendectomy, cholecystectomy, hysterectomy, kyphoplasty, tonsillectomy, spinal cord stimulator Family History Depression Hypertension Social History Smoking Status: Never Smoker Alcohol Use: none Drug Use: none Marital Status: Housing Status: lives with significant other Occupation Status: disabled Allergies Coded Allergies: Amoxicillin (Verified Allergy, Intermediate, HIVES; Has tolerated cephalosporins (Rocephin, Ceftin,Keflex, 12/30/16) Azithromycin (Verified Allergy, Intermediate, HIVES, 12/30/16) Baclofen (Verified Allergy, Intermediate, RASH, 12/30/16) Butalbital (Verified Allergy, Intermediate, HIVES, 12/30/16) Clarithromycin (Verified Allergy, Intermediate, RASH, 12/30/16) Dicyclomine (Verified Allergy, Intermediate, HIVES, 12/30/16) HIVES Penicillins (Verified Allergy, Intermediate, RASH; has tolerated cephs ( Rocephin, Keflex, Ceftin), 12/30/16) PT STATES SHE GETS WELTS FROM CIPRO,LEVAQUIN ALLERGY PER DR ROBLES Tetracyclines (Verified Allergy, Intermediate, DOXYCYCLINE-HIVES, 12/30/16) Sulindac (Verified Allergy, Mild, ALLERGY LISTED "CLONDORAL"--HIVES, ) Adhesives (Verified Allergy, Unknown, RASH, DUODERM=RED,ITCHY, 12/30/16) PLASTIC TAPE IS OK!!! DUODERM=RED,ITCHY Metronidazole (Verified Allergy, Unknown, SEIZURE, 12/30/16) Tramadol (Verified Allergy, Unknown, SEIZURES, 12/30/16) Metoclopramide (Verified Adverse Reaction, Severe, SEIZURES, 12/30/16) Blueberry (Verified Adverse Reaction, Mild, STOMACH PAIN, 12/30/16) Furosemide (Verified Adverse Reaction, Unknown, HIVES, 12/30/16) Current Medications Home Meds and Scripts Medications Dose Route/Sig Max Daily Dose Days Date Category Dose Instructions Cipro (Ciprofloxacin Hcl) 500 Mg Tab 500 Mg PO BID 5 12/26/16 Rx Bumex (Bumetanide) 1 Mg Tab 0.5 Tab PO DIRECTED 12/25/16 Rx Fluticasone Propionate 120 Sprays/6000 Mcg [place] 1 [place] ABRAHAN DAILY 12/18/16 Reported Phenergan (Promethazine HCl) 12.5 Mg Tab 1 Tab PO BID PRN 12/18/16 Reported Mirtazapine 15 Mg Tab 1 Tab PO HS 12/18/16 Reported Aleve Pm 220-25 mg (Naproxen Sodium-Diphenhydramin) 1 Tab Tab 1 Tab PO QPM PRN 12/14/16 Reported Aldactone (Spironolactone) 25 Mg Tab 25 Mg PO QAM 12/14/16 Rep[address] [facility] Lecithin (Lecithin) Unknown Strength Cap 1 Cap PO DAILY 12/14/16 Reported Lutein (Lutein-Zeaxanthin) 1 Cap Cap 1 Cap PO DAILY 12/14/16 Reported Cranberry (Cranberry (Vaccinium Macrocarp) Unknown Strength Tab 1 Tab PO TID 12/14/16 Reported Gnp Vitamin A (Vitamin A) 8,000 Unit Cap 8,000 Units PO DAILY 12/14/16 Reported Vitamin C (Ascorbic Acid) 1,000 Mg Tab 1,000 Mg PO DAILY 12/14/16 Reported Multivitamin (Multivitamins) Tab 1 Tab PO DAILY 12/14/16 Reported Roxicodone Ir (Oxycodone HCl) 5 Mg Tab 5 Mg PO Q8 PRN 12/13/16 Reported Nasacort Allergy 24Hr (Triamcinolone Acetonide (Nasal) 55 Mcg/Act Spr 1 [place] ABRAHAN DAILY 12/13/16 Reported Imitrex (Sumatriptan Succinate) 100 Mg Tab 100 Mg PO UD PRN 12/13/16 Reported Levetiracetam 1,000 Mg Tab 2,000 Mg PO BID 12/13/16 Reported Topamax (Topiramate) 25 Mg Tab 25 Mg PO BID 12/13/16 Reported TOTAL DOSE: 75MG BID Topamax (Topiramate) 50 Mg Tab 50 Mg PO BID 12/13/16 Reported TOTAL DOSE: 75MG BID Toujeo Solostar (Insulin Glargine) 300 Unit/Ml Inj 38 Units SQ QAM 12/13/16 Reported Zofran Odt (Ondansetron HCl) 4 Mg Tab 4 Mg SL Q6H 11/11/16 Rx Lactulose 20 Gm/30 Ml Syrp 20 Gm PO BID 30 11/01/16 Rx and titrate up or down on dose for goal of 3 bowel movements daily Humalog Kwikpen (Insulin Lispro (Human)) 100 Unit/Ml Inj Units SC UD 06/18/16 Reported PER SLIDING SCALE Ventolin Hfa (Albuterol) 200 Puffs/45294 Mcg Aers 2-4 Puffs INH Q6H PRN 05/22/16 Reported Prilosec (Omeprazole) 20 Mg Capcr 20 Mg PO QAM 05/22/16 Reported Trileptal (Oxcarbazepine) 600 Mg Tab 600 Mg PO BID 02/10/16 Reported Epipen (Epinephrine) 0.3 Mg/0.3 Ml Inj 0.3 Mg IM UD PRN 10/22/15 Reported Zinc (Zinc Gluconate) 50 Mg Tab 50 Mg PO BID 08/22/15 Reported Ferrous Sulfate 325 Mg Tab 325 Mg PO QPM 06/20/15 Reported Levothyroxine Sodium 75 Mcg Tab 75 Mcg PO QAM 06/20/15 Reported Xifaxan (Rifaximin) 550 Mg Tab 550 Mg PO BID 05/31/15 Reported Mag-Ox (Magnesium Oxide) 400 Mg Tab 400 Mg PO TID 02/12/15 Reported Ranitidine HCl 150 Mg Tab 150 Mg PO BID 10/30/14 Reported Probiotic (Probiotic Product) 1 Cap Cap 1 Cap PO DAILY 12/13/13 Reported Glucose (Glucose-Vitamin C) 1 Chw Chw 1 Chw PO UD PRN 05/06/13 Reported Review of Systems Constitutional: No fever, No chills Respiratory: No cough, No shortness of breath Cardiac: No chest pain Abdomen: No pain, No nausea, No vomiting Physical Exam Date Time Temp Pulse Resp B/P (MAP) Pulse Ox O2 Delivery O2 Flow Rate FiO2 12/31/16 08:00 Room Air 12/31/16 07:27 36.8 70 20 130/78 (95) 98 Room Air 12/31/16 00:38 36.7 82 20 130/83 (99) 100 Room Air 12/31/16 00:00 Room Air 12/30/16 16:00 Room Air 12/30/16 14:49 36.7 82 19 148/78 (101) 100 Room Air 12/30/16 14:28 86 123/85 99 12/30/16 14:00 85 20 121/73 100 Room Air 12/30/16 14:00 99 12/30/16 13:06 82 26 100 12/30/16 13:01 133/71 12/30/16 12:36 87 17 100 12/30/16 12:31 140/70 12/30/16 12:16 88 28 100 12/30/16 12:01 129/79 12/30/16 11:31 129/75 General Appearance: WD/WN, no apparent distress Eyes: normal inspection, PERRL, EOMI Neck: supple, no JVD, trachea midline Respiratory/Chest: normal breath sounds, no respiratory distress, no accessory muscle use Cardiovascular: regular rate, rhythm, no gallop, no murmur Abdomen: normal bowel sounds, non tender, soft Extremities: normal inspection, no pedal edema, no calf tenderness Neurologic/Psych: alert, normal mood/affect, oriented x 3 Skin: normal color, no jaundice, no rash Laboratory Results Last 24 Hours Test 12/30/16 12:05 12/30/16 15:11 12/30/16 16:58 12/30/16 19:29 Urine Color YELLOW Urine Appearance CLOUDY Urine pH 8.5 Urine Specific [place] 1.019 Urine Protein NEG Urine Glucose (UA) NEG Urine Ketones NEG Urine Occult Blood NEG Urine Nitrite NEG Urine Bilirubin NEG Urine Urobilinogen NEG Urine Leukocyte Esterase NEG Urine WBC (Auto) 0 /hpf Urine RBC (Auto) 0-4 /hpf Urine Hyaline Casts (Auto) 1-5 /lpf Urine Epithelial Cells (Auto) 0-5 /lpf Urine Bacteria (Auto) NEG Bedside Glucose 113 mg/dl 176 mg/dl 154 mg/dl Test 12/31/16 05:08 12/31/16 07:35 12/31/16 08:33 Estimated Average Glucose 91 mg/dl Hemoglobin A1c 4.8 % Bedside Glucose 174 mg/dl White Blood Count 2.31 K/uL Red Blood Count 2.58 M/uL Hemoglobin 9.0 g/dL Hematocrit 25.2 % Mean Corpuscular Volume 97.7 fL Mean Corpuscular Hemoglobin 34.9 pg Mean Corpuscular Hemoglobin Concent 35.7 g/dl RDW Standard Deviation 54.4 fL RDW Coefficient of Variation 15.4 % Platelet Count 71 K/uL Mean Platelet Volume 9.2 fL Sodium Level 139 mmol/L Potassium Level 3.9 mmol/L Chloride Level 108 mmol/L Carbon Dioxide Level 21 mmol/L Anion Gap 10.0 mmol/L Blood Urea Nitrogen 8 mg/dl Creatinine 0.56 mg/dl Est Creatinine Clear Calc Drug Dose 135.3 ml/min Estimated GFR () 125.1 Estimated GFR (Non- 108.0 BUN/Creatinine Ratio 13.7 Random Glucose 181 mg/dl Calcium Level 7.7 mg/dl Ammonia 94.0 umol/L Impression Patient is a 51 year old female w cirrhosis, admitted for confusion and high ammonia level. Suspect pt is non compliant w her meds at home as whenever she is re-admitted and receiving her meds on scheduled basis her confusion resolves and ammonia level decreases. She is also on several anti seizure meds and some of these are known to elevate ammonia levels. Thus would suggest not checking or following ammonia level on day to day basis but rather treat her symptoms of confusion w current meds which are already optimized. Plan - Continue current Lactulose, Xifaxan, Zinc. - May benefit from [facility] placement where her meds administration can be monitored and regulated as needed
--- NOTE | 2016-12-31 12:13 | Discharge Instructions ---
Discharge Instructions Date of Service Dec 31, 2016. Admission Reason for Admission: Encephalopathy Discharge Discharge Diagnosis / Problem: Altered mental status Discharge Goals Goal(s): Decrease discomfort Activity Recommendations Activity Limitations: resume your previous activity . Instructions / Follow-Up Instructions / Follow-Up Please take your lactulose and Xifaxan as prescribed to avoid ammonia elevations in the future. Current Hospital Diet Patient's current hospital diet: Diabetes Type 2 Diet, AHA Diet (Heart Healthy) Discharge Diet Recommended Diet: AHA Diet (Heart Healthy), Diabetes Type 2 Diet Procedures Procedures Performed: CXR Head CT Pending Studies Studies pending at discharge: no Laboratory Results Hemoglobin A1c Test 12/31/16 05:08 Range/Units Estimated Average Glucose 91 mg/dl Hemoglobin A1c 4.8 4.5-5.6 % Medical Emergencies . Who to Call and When: Medical Emergencies: If at any time you feel your situation is an emergency, please call 911 immediately. . Non-Emergent Contact Non-Emergency issues call your: Primary Care Provider Call Non-Emergent contact if: you have any medication questions . . "Provider Documentation" section prepared by Karen Bernardo. . VTE Core Measure Inpt VTE Proph given/why not?: Treatment not indicated (decreased platelets)
--- NOTE | 2016-12-31 12:17 | Discharge Summary ---
Discharge Summary Date of Service Dec 31, 2016. Discharge Summary Admission Date: Dec 30, 2016 at 13:19 Discharge Disposition: Home Principal Diagnosis: Altered Mental Status Immunizations: Have You Had Influenza Vaccine: Yes Influenza Vaccine Date: Feb 02, 2013 History of Tetanus Vaccine?: utd Tetanus Immunization Date: Jun 11, 2008 History of Pneumococcal: SEE LAST PACKET Pneumococcal Date: Nov 13, 2008 History of Hepatitis B Vaccine: Unknown Hepatitis Immunization Date: Jan 12, 1996 Procedures: CXR IMPRESSION: 1. Cardiomegaly with interval resolution of pulmonary vascular congestion. Head CT Impression: No acute intracranial abnormality. Consultations: Neha Gonzalez from GI Medication Reconciliation Continued Medications: Albuterol Hfa (Ventolin Hfa) 200 Puffs/51259 Mcg Aers 2-4 PUFFS INH Q6H PRN for Shortness of Breath, #1 INHALER Ascorbic Acid (Vitamin C) 1,000 Mg Tab 1000 MG PO DAILY Bumetanide (Bumex) 1 Mg Tab 0.5 TAB PO DIRECTED, #14 TAB 0 Refills Cranberry (Vaccinium Macrocarp (Cranberry) Unknown Strength Tab 1 TAB PO TID Epinephrine (Epipen) 0.3 Mg/0.3 Ml Inj 0.3 MG IM UD PRN for ALLERGIC REACTION Ferrous Sulfate (Ferrous Sulfate) 325 Mg Tab 325 MG PO QPM Fluticasone Propionate (Fluticasone Propionate) 120 Sprays/6000 Mcg Inha 1 SPRAY ABRAHAN DAILY, #16 Glucose-Vitamin C (Glucose) 1 Chw Chw 1 CHW PO UD PRN for Hypoglycemia Insulin Glargine (Toujeo Solostar) 300 Unit/Ml Inj 38 UNITS SQ QAM Insulin Lispro (Human) (Humalog Kwikpen) 100 Unit/Ml Inj UNITS SC UD PER SLIDING SCALE Lactulose (Lactulose) 20 Gm/30 Ml Syrp 20 GM PO BID for 30 Days and titrate up or down on dose for goal of 3 bowel movements daily Lecithin (Cvs Lecithin) Unknown Strength Cap 1 CAP PO DAILY Levetiracetam (Levetiracetam) 1,000 Mg Tab 2000 MG PO BID Levothyroxine Sodium (Levothyroxine Sodium) 75 Mcg Tab 75 MCG PO QAM, TAB Lutein-Zeaxanthin (Lutein) 1 Cap Cap 1 CAP PO DAILY Magnesium Oxide (Mag-Ox) 400 Mg Tab 400 MG PO TID, TAB Mirtazapine (Mirtazapine) 15 Mg Tab 1 TAB PO HS, #30 Multivitamin (Multivitamin) Tab 1 TAB PO DAILY, TAB Naproxen Sodium-Diphenhydramin (Aleve Pm 220-25 mg) 1 Tab Tab 1 TAB PO QPM PRN for Pain Omeprazole (Prilosec) 20 Mg Capcr 20 MG PO QAM, CAP Ondasetron Odt (Zofran Odt) 4 Mg Tab 4 MG SL Q6H for Nausea, #20 TAB Oxcarbazepine (Trileptal) 600 Mg Tab 600 MG PO BID Oxycodone Ir (Roxicodone Ir) 5 Mg Tab 5 MG PO Q8 PRN for Pain, TAB Probiotic Product (Probiotic) 1 Cap Cap 1 CAP PO DAILY Promethazine (Phenergan ) 12.5 Mg Tab 1 TAB PO BID PRN for Nausea or Vomiting, #90 Ranitidine HCl (Ranitidine HCl) 150 Mg Tab 150 MG PO BID Rifaximin (Xifaxan) 550 Mg Tab 550 MG PO BID, TAB Spironolactone (Aldactone) 25 Mg Tab 25 MG PO QAM, TAB Sumatriptan Succinate (Imitrex) 100 Mg Tab 100 MG PO UD PRN for Migraine, TAB Topiramate (Topamax) 50 Mg Tab 50 MG PO BID TOTAL DOSE: 75MG BID Topiramate (Topamax ) 25 Mg Tab 25 MG PO BID TOTAL DOSE: 75MG BID Triamcinolone Acetonide (Nasal (Nasacort Allergy 24Hr) 55 Mcg/Act Spr 1 SPRAY ABRAHAN DAILY Vitamin A (Gnp Vitamin A) 8,000 Unit Cap 8000 UNITS PO DAILY Zinc Gluconate (Zinc) 50 Mg Tab 50 MG PO BID Discontinued Medications: Ciprofloxacin Hcl (Cipro) 500 Mg Tab 500 MG PO BID for 5 Days, #10 TAB 0 Refills Discharge Exam Review of Systems: Respiratory: No cough, No shortness of breath Cardiovascular: No chest pain Abdomen: No nausea, No vomiting Physical Exam: General Appearance: WD/WN, no apparent distress Eyes: normal inspection Respiratory/Chest: chest non-tender, normal breath sounds, no respiratory distress Cardiovascular: regular rate, rhythm, no edema, no gallop, no murmur, normal peripheral pulses Abdomen / GI: normal bowel sounds, non tender, soft Neurologic/Psychiatric: alert, normal mood/affect, oriented x 3 Skin: normal color, warm/dry Hospital Course A 51-year-old female with hepatic encephalopathy with a recent urinary tract infection on admission. For the encephalopathy, the patient will be given a lactulose enema, continue on a daily lactulose and Xifaxan treatment with consult with Dr. Johns, to determine if there is any other strategies we can employ to reduce her frequent readmission state. Regarding her diabetes, the patient typically is very particular about taking her Toujeo. We will continue this if it is supplied by her using an insulin sliding scale at this point in time. With her seizure medications, will continue her Topamax, Keppra and Lamictal. Regarding her pancytopenia, this is likely related to her cirrhosis this has been stable as in the past. We did previously not use chemoprophylaxis due to her low platelet count. Regarding her psychological disturbance and bipolar disorder, we will maintain her home medications. Regarding her chronic headaches, will offer her Imitrex as needed. We will not continue antibiotics at this point in time unless we have proved that she has recurrent urinary tract infection. Total Time Spent: Less than 30 minutes This includes examination of the patient, discharge planning, medication reconciliation, and communication with other providers. Discharge Instructions Please refer to the electronic Patient Visit Report (Discharge Instructions) for additional information.
--- NOTE | 2016-12-31 12:46 | Hospitalist Progress Note ---
Hospitalist Progress Note Date of Service Dec 31, 2016. Subjective Pt evaluation today including: conversation w/ patient, conversation w/ family , physical exam, review of inpatient medication list Voiding: no voiding problems (liu removed) Ms. Munson feels back to her baseline today. Her only complaint is some mild abdominal tenderness. Respiratory: No cough, No sputum, No shortness of breath Cardiovascular: No chest pain, No orthopnea, No palpitations Abdomen: No pain, No nausea, No vomiting, No diarrhea Medications Medications (Trade) Dose Ordered Sig/Danita Route Start Time Stop Time Status Last Admin Dose Admin Vancomycin HCl 2000 mg/Sodium Chloride 540 ml @ 200 mls/hr TODAY@1245 IV 12/30/16 12:45 12/30/16 15:00 DC 12/30/16 14:00 200 MLS/HR Lactulose (Chronulac Syrup) 20 gm BID PO 12/30/16 21:00 01/29/17 20:59 12/31/16 08:09 20 GM Levothyroxine Sodium (Synthroid Tab) 75 mcg DAILYBB PO 12/31/16 06:30 01/30/17 06:59 12/31/16 05:02 75 MCG Magnesium Oxide (Mag-Ox Tab) 400 mg TID PO 12/30/16 21:00 01/29/17 20:59 12/31/16 08:12 400 MG Mirtazapine (Remeron Tab) 15 mg HS PO 12/30/16 21:00 01/29/17 20:59 12/30/16 21:57 15 MG Oxcarbazepine (Trileptal Tab) 600 mg BID PO 12/30/16 21:00 01/29/17 20:59 12/31/16 08:16 600 MG Oxycodone HCl (Roxicodone Immediate Rel Tab) 5 mg Q8 PRN PO 12/30/16 13:15 01/13/17 13:14 12/31/16 10:53 5 MG Ranitidine HCl (zANTac TAB) 150 mg BID PO 12/30/16 21:00 01/29/17 20:59 12/31/16 08:16 150 MG Rifaximin (Xifaxan Tab) 550 mg BID PO 12/30/16 21:00 01/29/17 20:59 12/31/16 08:12 550 MG Sumatriptan Succinate (Imitrex Tab) 100 mg DAILY PRN PO 12/30/16 13:15 01/29/17 13:14 12/31/16 05:02 100 MG Topiramate (Topamax Tab) 25 mg BID PO 12/30/16 21:00 01/29/17 20:59 12/31/16 08:16 25 MG Topiramate (Topamax Tab) 50 mg BID PO 12/30/16 21:00 01/29/17 20:59 12/31/16 08:17 50 MG Insulin Aspart (novoLOG ASPART) SLIDING SCALE PARAMETER ACHS SC 12/30/16 16:30 01/29/17 16:29 12/31/16 08:27 13 UNITS Levetiracetam (Keppra Tab) 2,000 mg BID PO 12/30/16 21:00 12/31/16 06:22 DC 12/30/16 21:55 2,000 MG Sodium Chloride 1,000 ml @ 100 mls/hr Q10H IV 12/30/16 13:30 12/31/16 09:29 DC 12/31/16 01:46 100 MLS/HR Levetiracetam (Keppra Tab) 2,000 mg BID PO 12/31/16 09:00 01/30/17 08:59 12/31/16 08:12 2,000 MG Insulin Glargine (Toujeo Solostar) 25 units QAM SC 12/31/16 09:00 12/31/16 09:39 DC 12/31/16 08:27 25 UNITS Objective Vital Signs Date Time Temp Pulse Resp B/P (MAP) Pulse Ox O2 Delivery O2 Flow Rate FiO2 12/31/16 08:00 Room Air 12/31/16 07:27 36.8 70 20 130/78 (95) 98 Room Air 12/31/16 00:38 36.7 82 20 130/83 (99) 100 Room Air 12/31/16 00:00 Room Air 12/30/16 16:00 Room Air 12/30/16 14:49 36.7 82 19 148/78 (101) 100 Room Air 12/30/16 14:28 86 123/85 99 12/30/16 14:00 85 20 121/73 100 Room Air 12/30/16 14:00 99 12/30/16 13:06 82 26 100 12/30/16 13:01 133/71 Physical Exam Notes: General: no distress Eyes: normal inspection, PERLL Respiratory: chest non tender, clear to auscultation, normal breath sounds, no respiratory distress, no accessory muscle use Cardiac: regular rate and rhythm, no rub or gallop, no murmur, no edema, no jvd GI/: active bowel sounds, no abd pain or tenderness, soft, non distended Extremities: normal range of motion, normal strength, non tender Neuro/Psych: alert and oriented x 3, normal mood and affect Skin: normal color, dry Laboratory Results Last 24 Hours Test 12/30/16 15:11 12/30/16 16:58 12/30/16 19:29 12/31/16 05:08 Bedside Glucose 113 mg/dl 176 mg/dl 154 mg/dl Estimated Average Glucose 91 mg/dl Hemoglobin A1c 4.8 % Test 12/31/16 07:35 12/31/16 08:33 12/31/16 11:41 Bedside Glucose 174 mg/dl 103 mg/dl White Blood Count 2.31 K/uL Red Blood Count 2.58 M/uL Hemoglobin 9.0 g/dL Hematocrit 25.2 % Mean Corpuscular Volume 97.7 fL Mean Corpuscular Hemoglobin 34.9 pg Mean Corpuscular Hemoglobin Concent 35.7 g/dl RDW Standard Deviation 54.4 fL RDW Coefficient of Variation 15.4 % Platelet Count 71 K/uL Mean Platelet Volume 9.2 fL Sodium Level 139 mmol/L Potassium Level 3.9 mmol/L Chloride Level 108 mmol/L Carbon Dioxide Level 21 mmol/L Anion Gap 10.0 mmol/L Blood Urea Nitrogen 8 mg/dl Creatinine 0.56 mg/dl Est Creatinine Clear Calc Drug Dose 135.3 ml/min Estimated GFR () 125.1 Estimated GFR (Non- 108.0 BUN/Creatinine Ratio 13.7 Random Glucose 181 mg/dl Calcium Level 7.7 mg/dl Ammonia 94.0 umol/L Assessment and Plan A 51-year-old female with hepatic encephalopathy with a recent urinary tract infection on admission. For the encephalopathy, the patient will be given a lactulose enema, continue on a daily lactulose and Xifaxan treatment with consult with Dr. Johns, to determine if there is any other strategies we can employ to reduce her frequent readmission state. Regarding her diabetes, the patient typically is very particular about taking her Toujeo. We will continue with home pen. With her seizure medications, will continue her Topamax, Keppra and Lamictal. Regarding her pancytopenia, this is likely related to her cirrhosis this has been stable as in the past. Regarding her psychological disturbance and bipolar disorder, we will maintain her home medications. Regarding her chronic headaches, will offer her Imitrex as needed. We will not continue antibiotics at this point in time unless we have proved that she has recurrent urinary tract infection. Disposition - home tomorrow DVT prophylaxis - low platelets, not a candidate for chemoprophylaxis Code status - full resuscitation
[2016-12-31] MEDS ORDERED: INSULIN GLARGINE 300 UNITS/ML INJ SC STA (13:24)
[2016-12-31] MEDS ORDERED: NURSING VERBAL MED ORDER ONE ×2 (13:30→17:00)
[2016-12-31] MEDS: CARBIDOPA/LEVODOPA 25/100MG TAB PO SCH ×2 (13:33→20:47)
[2016-12-31] MEDS: ONDANSETRON INJ 2 MG/ML 2 ML VIAL IV PRN ×2 (14:40→21:48)
[2016-12-31 15:12] VITALS: BP 127/79; PULSE 70; TEMP 36.5; O2SAT 100
[2016-12-31] MEDS ORDERED: CIPROFLOXACIN 500 MG TAB PO SCH (18:00)
[2016-12-31] MEDS: MIRTAZAPINE TAB 15 MG TAB PO SCH (20:48)
[2017-01-01 00:05] VITALS: BP 97/59; PULSE 79; TEMP 36.6; O2SAT 96
[2017-01-01] MEDS: LEVOTHYROXINE 75 MCG TAB PO SCH (06:58)
[2017-01-01] MEDS ORDERED: OXYC1TAB3 PO (07:45)
[2017-01-01] MEDS ORDERED: [UNRECOGNIZED DRUG - CODE] PO (07:45)
[2017-01-01 07:49] VITALS: BP 97/59; PULSE 79; TEMP 36.6; O2SAT 96
[2017-01-01] MEDS ORDERED: INSULIN GLARGINE 300 UNITS/ML INJ SC SCH (09:00)
== END 2017-01-01 08:15 | disposition home or self-care (01) ==
LOC: C.EDB 09:43 → C.MS2W 13:19 → ENRESERV 13:31
PROVIDERS: ADMIT Internal Medicine; ATTEND Internal Medicine
DX: K72.90 Hepatic failure, unspecified without coma (principal); D61.818 Other pancytopenia; E72.20 Disorder of urea cycle metabolism, unspecified; F31.9 Bipolar disorder, unspecified; E11.43 Type 2 diabetes mellitus with diabetic autonomic (poly)neuropathy; Z79.4 Long term (current) use of insulin; Z87.440 Personal history of urinary (tract) infections; Z91.19 Patient's noncompliance with other medical treatment and regimen; Z87.01 Personal history of pneumonia (recurrent); Z87.11 Personal history of peptic ulcer disease; Z90.49 Acquired absence of other specified parts of digestive tract; Z90.710 Acquired absence of both cervix and uterus; Z82.49 Family history of ischemic heart disease and other diseases of the circulatory system; Z81.3 Family history of other psychoactive substance abuse and dependence

== ENCOUNTER 2017-01-12 11:05 | Emergency (ER) | payer BC, OTHER ==
[~2017-01-12] VITALS: Ht 165.1 cm; Wt 93.5 kg
[~2017-01-12 11:05] MED LIST changes: -CIPR-255 PO; +[UNRECOGNIZED DRUG - CODE] PO
[2017-01-12 11:12] VITALS: TEMP 36.6; Ht 165.1 cm; Wt 93.5 kg
--- NOTE | 2017-01-12 11:41 | EMERGENCY ROOM VISIT NOTE ---
History Report prepared by Broderick: Cristy Gage Under the Supervision of: Dr. Alexis Jones M.D. First contact with patient: 11:14 Chief Complaint: ARM PAIN Stated Complaint: FALL/L-ARM PAIN History of Present Illness The patient is a 51 year old white female with a past medical history of cholecystectomy, appendectomy, hysterectomy, shoulder surgery, thyroidectomy, and hypertension who presents to the ED with a cc of constant left arm pain beginning just METAL SANDER. The patient states that she was napping and when she got up and went into the kitchen she fell onto her left side. She reports that she is now having left arm pain. She notes that she had shoulder surgery for a broken humerus in September. Positive left shoulder pain. Negative head injury. Pt is not on blood thinners. She notes that she has a nerve stimulator that is not in current function. Source of History: patient Onset: just METAL SANDER Position: arm (left) Timing: constant Note: Positive left shoulder pain and fall. Negative head injury. Review of Systems See HPI for pertinent positives and negatives. A total of ten systems were reviewed and were otherwise negative. 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 (20) Seizure disorder Surgical Problems: (1) H/O nasal septoplasty (2) History of appendectomy (3) History of cholecystectomy (4) History of hysterectomy (5) History of kyphoplasty (6) History of tonsillectomy (7) s/p spinal stimulator placement Family History Depression Hypertension Social History Smoking Status: Never Smoker Alcohol Use: none Drug Use: none Marital Status: Housing Status: lives with significant other Occupation Status: disabled Current/Historical Medications Scheduled Ascorbic Acid (Vitamin C), 1,000 MG PO DAILY Bumetanide (Bumex), 0.5 TAB PO DIRECTED Carbidopa/Levodopa (Sinemet 25MG/100MG), 1 TAB PO TID Cranberry (Vaccinium Macrocarp (Cranberry), 1 TAB PO TID Ferrous Sulfate (Ferrous Sulfate), 325 MG PO QPM Fluticasone Propionate (Fluticasone Propionate), 1 SPRAY ABRAHAN DAILY Insulin Glargine (Toujeo Solostar), 38 UNITS SQ QAM Insulin Lispro (Human) (Humalog Kwikpen), UNITS SC UD Lactulose (Lactulose), 20 GM PO BID Lecithin (Cvs Lecithin), 1 CAP PO DAILY Levetiracetam (Levetiracetam), 2,000 MG PO BID Levothyroxine Sodium (Levothyroxine Sodium), 75 MCG PO QAM Lutein-Zeaxanthin (Lutein), 1 CAP PO DAILY Magnesium Oxide (Mag-Ox), 400 MG PO TID Mirtazapine (Mirtazapine), 1 TAB PO HS Multivitamin (Multivitamin), 1 TAB PO DAILY Omeprazole (Prilosec), 20 MG PO QAM Ondasetron Odt (Zofran Odt), 4 MG SL Q6H Oxcarbazepine (Trileptal), 600 MG PO BID Probiotic Product (Probiotic), 1 CAP PO DAILY Ranitidine HCl (Ranitidine HCl), 150 MG PO BID Rifaximin (Xifaxan), 550 MG PO BID Spironolactone (Aldactone), 25 MG PO QAM Topiramate (Topamax), 50 MG PO BID Topiramate (Topamax ), 25 MG PO BID Triamcinolone Acetonide (Nasal (Nasacort Allergy 24Hr), 1 SPRAY ABRAHAN DAILY Vitamin A (Gnp Vitamin A), 8,000 UNITS PO DAILY Zinc Gluconate (Zinc), 50 MG PO BID Scheduled PRN Albuterol Hfa (Ventolin Hfa), 2-4 PUFFS INH Q6H PRN for Shortness of Breath Epinephrine (Epipen), 0.3 MG IM UD PRN for ALLERGIC REACTION Glucose-Vitamin C (Glucose), 1 CHW PO UD PRN for Hypoglycemia Naproxen Sodium-Diphenhydramin (Aleve Pm 220-25 mg), 1 TAB PO QPM PRN for Pain Oxycodone Ir (Roxicodone Ir), 5 MG PO Q8 PRN for Pain Promethazine (Phenergan ), 1 TAB PO BID PRN for Nausea or Vomiting Sumatriptan Succinate (Imitrex), 100 MG PO UD PRN for Migraine Allergies Coded Allergies: Amoxicillin (Verified Allergy, Intermediate, HIVES; Has tolerated cephalosporins (Rocephin, Ceftin,Keflex, 12/30/16) Azithromycin (Verified Allergy, Intermediate, HIVES, 12/30/16) Baclofen (Verified Allergy, Intermediate, RASH, 12/30/16) Butalbital (Verified Allergy, Intermediate, HIVES, 12/30/16) Clarithromycin (Verified Allergy, Intermediate, RASH, 12/30/16) Dicyclomine (Verified Allergy, Intermediate, HIVES, 12/30/16) HIVES Penicillins (Verified Allergy, Intermediate, RASH; has tolerated cephs ( Rocephin, Keflex, Ceftin), 12/30/16) PT STATES SHE GETS WELTS FROM CIPRO,LEVAQUIN ALLERGY PER DR ROBLES Tetracyclines (Verified Allergy, Intermediate, DOXYCYCLINE-HIVES, 12/30/16) Sulindac (Verified Allergy, Mild, ALLERGY LISTED "CLONDORAL"--HIVES, ) Adhesives (Verified Allergy, Unknown, RASH, DUODERM=RED,ITCHY, 12/30/16) PLASTIC TAPE IS OK!!! DUODERM=RED,ITCHY Metronidazole (Verified Allergy, Unknown, SEIZURE, 12/30/16) Tramadol (Verified Allergy, Unknown, SEIZURES, 12/30/16) Metoclopramide (Verified Adverse Reaction, Severe, SEIZURES, 12/30/16) Blueberry (Verified Adverse Reaction, Mild, STOMACH PAIN, 12/30/16) Furosemide (Verified Adverse Reaction, Unknown, HIVES, 12/30/16) Physical Exam Vital Signs Date Time Temp Pulse Resp B/P (MAP) Pulse Ox O2 Delivery O2 Flow Rate FiO2 01/12/17 13:07 86 16 137/83 94 Room Air 01/12/17 11:12 36.6 90 18 149/79 100 Room Air Physical Exam GENERAL: Awake, alert, well-appearing, NAD HENT: Normocephalic, atraumatic. EYES: Normal conjunctiva. Sclera non-icteric. NECK: Supple. No nuchal rigidity. FROM. RESPIRATORY: CTAB, no rhonchi, wheezing, crackles CARDIAC: RRR, no MRG ABDOMEN: Soft, NTND, BS+ MSK: No chest wall TTP, no LE edema. Noticeable scarring to left anterior humerus consistent with prior fracture and surgical repair. Incisional scar to left chest consistent with prior implant. NEURO: GCS 15, CN 2-12 intact, moves all 4s on command. Neurovascularly intact to MUR nerves. SKIN: No rash or jaundice noted. Medical Decision & Procedures ER Provider Diagnostic Interpretation: X-ray: Per my interpretation, radiologist review. L SHOULDER MIN 2 VIEWS ROUTINE FINDINGS: Status post internal fixation of a left humeral neck fracture with a lateral cortical plate transfixed with screws. The hardware appears intact. The fracture is partially healed. No dislocation. Left-sided stimulator device is noted. The left clavicle is intact. IMPRESSION: Status post internal fixation of a left humeral neck fracture. The fracture is partially healed. The hardware is intact. Electronically signed by: Talon Cruz M.D. 01/12/2017 11:51 AM Dictated Date/Time: 01/12/2017 11:49 AM CHEST ONE VIEW PORTABLE FINDINGS: No pneumothorax. Low lung volumes. The heart remains borderline enlarged. No new focal lung consolidations. No evidence for pulmonary edema. Right Port-A-Cath terminates in the SVC. Patient is slightly rotated on this study. Left-sided stimulator device appears intact. Postoperative changes within the left humerus which are better appreciated on the same day left shoulder radiograph. IMPRESSION: No significant change compared to the prior study. No acute process. Electronically signed by: Talon Cruz M.D. 01/12/2017 11:45 AM Dictated Date/Time: 01/12/2017 11:43 AM ED Course 1114: The patient was evaluated in room A11. A complete history and physical exam was performed. 1250: Tylenol Tab 650mg PO. 1253: Versed Inj 2mg IV. 1255: I reevaluated the patient. Discussed results and discharge instructions: She verbalized understanding and agreement. The patient is ready for discharge. Medical Decision The patient is a 51 year old white female with a past medical history of cholecystectomy, appendectomy, hysterectomy, shoulder surgery, thyroidectomy, and hypertension who presents to the ED with a cc of constant left arm pain beginning just METAL SANDER. Differential diagnosis: Etiologies such as fracture, dislocation, neurovascular compromise, compartment syndrome, soft tissue injury, as well as others were entertained. Patient was seen and evaluated the bedside. Patient did describe a mechanical fall the left shoulder. Patient denies any syncope does not take any blood thinning medications. Patient did have a prior surgical repair of her left humerus. Patient is neurovascularly intact distally. Patient did have a shoulder and chest x-ray that were completed. Patient does not show any signs of pneumonia effusion, pneumothorax, or fracture. Hardware is intact. Patient' s pain mildly improved after Tylenol. Patient deemed not to need a CT of the brain and CT of the C-spine at this time she is neurologically intact at her baseline without any neurologic deficits and without any gross or obvious signs of a traumatic event. Patient was given strict follow-up, discharge, return precautions. Patient [facility] patient safely discharged home. Medication Reconcilliation Current Medication List: was personally reviewed by me Blood Pressure Screening Patient's blood pressure: Elevated blood pressure Blood pressure disposition: Elevated BP felt to be situational Impression Primary Impression: Fall Additional Impression: Left shoulder pain Scribe Attestation The scribe's documentation has been prepared under my direction and personally reviewed by me in its entirety. I confirm that the note above accurately reflects all work, treatment, procedures, and medical decision making performed by me. Departure Information Dispostion Home / Self-Care Referrals Olena Little DO (PCP) Patient Instructions My [facility] [address] Additional Instructions Please return to the emergency department if you have worsening or recurrent symptoms not amenable to at-home treatment. Please call for a follow-up appointment with her primary care physician. Please take your medications as prescribed. If you have other concerns and/or complaints please feel free to also call your primary care physician's office or return the ED for further evaluation, management, and treatment. You may take tylenol 1000mg every 6 hours as needed for pain. You have been examined and treated today on an emergency basis only. This is not a substitute for, or an effort to provide, complete comprehensive medical care. It is impossible to recognize and treat all injuries or illnesses in a single emergency department visit. It is therefore important that you follow up closely with [facility]. Call as soon as possible for an appointment. Thank you for your time and consideration. I look forward to speaking with you again soon. Please don't hesitate to call us if you have any questions. Problem Qualifiers Primary Impression: Fall Encounter type: initial encounter Qualified Codes: W19.XXXA - Unspecified fall, initial encounter Additional Impression: Left shoulder pain Chronicity: acute Qualified Codes: M25.512 - Pain in left shoulder
--- NOTE | 2017-01-12 11:47 | DIAGNOSTIC IMAGING REPORT ---
CHEST ONE VIEW PORTABLE HISTORY: fall to L shoulder, prior TKA, ?nerve stimulator L chest COMPARISON: Chest 12/30/2016. FINDINGS: No pneumothorax. Low lung volumes. The heart remains borderline enlarged. No new focal lung consolidations. No evidence for pulmonary edema. Right Port-A-Cath terminates in the SVC. Patient is slightly rotated on this study. Left-sided stimulator device appears intact. Postoperative changes within the left humerus which are better appreciated on the same day left shoulder radiograph. IMPRESSION: No significant change compared to the prior study. No acute process. Electronically signed by: Talon Cruz M.D. 01/12/2017 11:45 AM Dictated Date/Time: 01/12/2017 11:43 AM
--- NOTE | 2017-01-12 11:52 | DIAGNOSTIC IMAGING REPORT ---
L SHOULDER MIN 2 VIEWS ROUTINE CLINICAL HISTORY: Fall. Left shoulder pain. COMPARISON STUDY: Left shoulder 10/17/2016. FINDINGS: Status post internal fixation of a left humeral neck fracture with a lateral cortical plate transfixed with screws. The hardware appears intact. The fracture is partially healed. No dislocation. Left-sided stimulator device is noted. The left clavicle is intact. IMPRESSION: Status post internal fixation of a left humeral neck fracture. The fracture is partially healed. The hardware is intact. Electronically signed by: Talon Cruz M.D. 01/12/2017 11:51 AM Dictated Date/Time: 01/12/2017 11:49 AM
[2017-01-12] MEDS ORDERED: ACETAMINOPHEN 325 MG TAB PO STA (12:50)
[2017-01-12] MEDS ORDERED: MIDAZOLAM HCL 5 MG/ML 1 ML VIAL IV STA (12:53)
[2017-01-12] MEDS ORDERED: CARB25TA12 PO (13:01)
[2017-01-12 13:07] VITALS: BP 137/83; PULSE 86; O2SAT 94
[2017-01-13] MEDS ORDERED: CHOL100010 PO (12:22)
[2017-01-13] MEDS ORDERED: RMR15 PO (12:27)
[2017-01-15] MEDS ORDERED: CEFD1CAP14 PO (07:42)
== END 2017-01-12 13:25 | disposition home or self-care (01) ==
LOC: EDBD 11:05 → C.EDA 11:06
DX: M25.512 Pain in left shoulder (principal); W18.30XA Fall on same level, unspecified, initial encounter; Y92.010 Kitchen of single-family (private) house as the place of occurrence of the external cause; I10 Essential (primary) hypertension; J45.909 Unspecified asthma, uncomplicated; E11.9 Type 2 diabetes mellitus without complications; F31.9 Bipolar disorder, unspecified; K74.60 Unspecified cirrhosis of liver; G93.40 Encephalopathy, unspecified; R01.1 Cardiac murmur, unspecified; F32.9 Major depressive disorder, single episode, unspecified; D46.9 Myelodysplastic syndrome, unspecified; D61.818 Other pancytopenia; K27.9 Peptic ulcer, site unspecified, unspecified as acute or chronic, without hemorrhage or perforation; F45.9 Somatoform disorder, unspecified; G40.909 Epilepsy, unspecified, not intractable, without status epilepticus; Z79.4 Long term (current) use of insulin; Z90.710 Acquired absence of both cervix and uterus; Z82.49 Family history of ischemic heart disease and other diseases of the circulatory system; Z81.8 Family history of other mental and behavioral disorders

== ENCOUNTER 2017-01-13 10:41 | Observation (INO) | payer BC, OTHER ==
[~2017-01-13] VITALS: Ht 165.1 cm; Wt 93.5 kg
[~2017-01-13 10:41] MED LIST changes: +CARB25TA12 PO; -[UNRECOGNIZED DRUG - CODE] PO
[2017-01-13] MEDS ORDERED: SODIUM CHLORIDE 0.9% 1000ML 500 ML IV STA (11:02)
--- NOTE | 2017-01-13 11:13 | EMERGENCY ROOM VISIT NOTE ---
History Report prepared by Broderick: Amalia Landaverde Under the Supervision of: Dr. Aiden Nelson M.D. First contact with patient: 10:59 Chief Complaint: ALTERED MENTAL STATUS Stated Complaint: MENTALLY AND PHYSICALLY SLOW Nursing Triage Summary: patient states patient has been very weak today, may be low ammonia. Pt lethargic in triage. Pt here yesterday for fall. History of Present Illness The patient is a 51 year old female who presents to the Emergency Room with a change in mental status that began prior to arrival. The patient reports discomfort rated as a 10/10 in severity. Per the patient's , the patient has been generally, mentally slow for the past several weeks. He states that the patient's mental status waxes and wanes. The patient's does believe that it is related to her ammonia level. He states that today the patient went to her [facility] and notes that while there the patient's mental state became altered. The patient states that she had someone dial her 's number for her. The patient's notes that the patient had 3 doses Lactulose yesterday and one this morning. He additionally notes that he gave the patient oxycodone last night and this morning. The patient's states that the patient was evaluated in the emergency department yesterday for a fall. He additionally states that the patient was evaluated in the hospital from December 30-. The patient's denies the patient ingesting any alcohol. He denies the patient having any cough, congestion, fever, or diarrhea. The patient's states that the patient ate normally this morning. The history is limited secondary to the patient's altered mental status Source of History: patient, spouse/significant other () History Limited By: AMS Onset: prior to arrival Position: other (global) Symptom Intensity: 10/10 Quality: other (change in mental status) Associated Symptoms: No fevers, No cough, No diarrhea Review of Systems The history is limited secondary to the patient's altered mental status 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 (20) Seizure disorder Surgical Problems: (1) H/O nasal septoplasty (2) History of appendectomy (3) History of cholecystectomy (4) History of hysterectomy (5) History of kyphoplasty (6) History of tonsillectomy (7) s/p spinal stimulator placement Family History Depression Hypertension Social History Smoking Status: Never Smoker Alcohol Use: none Drug Use: none Marital Status: Housing Status: lives with significant other Occupation Status: disabled Current/Historical Medications Scheduled Ascorbic Acid (Vitamin C), 1,000 MG PO DAILY Cholecalciferol (Vitamin D), 5,000 UNITS PO DAILY Cranberry (Vaccinium Macrocarp (Cranberry), 1 TAB PO TID Ferrous Sulfate (Ferrous Sulfate), 325 MG PO QPM Fluticasone Propionate (Fluticasone Propionate), 1 SPRAY ABRAHAN DAILY Insulin Glargine (Toujeo Solostar), 38 UNITS SQ QAM Insulin Lispro (Human) (Humalog Kwikpen), UNITS SC UD Lactulose (Lactulose), 20 GM PO BID Lecithin (Cvs Lecithin), 1 CAP PO DAILY Levetiracetam (Levetiracetam), 2,000 MG PO BID Levothyroxine Sodium (Levothyroxine Sodium), 75 MCG PO QAM Lutein-Zeaxanthin (Lutein), 1 CAP PO DAILY Magnesium Oxide (Mag-Ox), 400 MG PO TID Mirtazapine (Mirtazapine), 30 MG PO HS Multivitamin (Multivitamin), 1 TAB PO DAILY Omeprazole (Prilosec), 20 MG PO QAM Ondasetron Odt (Zofran Odt), 4 MG SL Q6H Oxcarbazepine (Trileptal), 600 MG PO BID Probiotic Product (Probiotic), 1 CAP PO DAILY Ranitidine HCl (Ranitidine HCl), 150 MG PO BID Rifaximin (Xifaxan), 550 MG PO BID Spironolactone (Aldactone), 25 MG PO QAM Topiramate (Topamax), 50 MG PO BID Topiramate (Topamax ), 25 MG PO BID Triamcinolone Acetonide (Nasal (Nasacort Allergy 24Hr), 1 SPRAY ABRAHAN DAILY Vitamin A (Gnp Vitamin A), 8,000 UNITS PO DAILY Zinc Gluconate (Zinc), 50 MG PO BID Scheduled PRN Albuterol Hfa (Ventolin Hfa), 2-4 PUFFS INH Q6H PRN for Shortness of Breath Epinephrine (Epipen), 0.3 MG IM UD PRN for ALLERGIC REACTION Glucose-Vitamin C (Glucose), 1 CHW PO UD PRN for Hypoglycemia Naproxen Sodium-Diphenhydramin (Aleve Pm 220-25 mg), 1 TAB PO QPM PRN for Pain Oxycodone Ir (Roxicodone Ir), 5 MG PO Q8 PRN for Pain Promethazine (Phenergan ), 1 TAB PO BID PRN for Nausea or Vomiting Sumatriptan Succinate (Imitrex), 100 MG PO UD PRN for Migraine Allergies Coded Allergies: Amoxicillin (Verified Allergy, Intermediate, HIVES; Has tolerated cephalosporins (Rocephin, Ceftin,Keflex, 01/13/17) Azithromycin (Verified Allergy, Intermediate, HIVES, 01/13/17) Baclofen (Verified Allergy, Intermediate, RASH, 01/13/17) Butalbital (Verified Allergy, Intermediate, HIVES, 01/13/17) Clarithromycin (Verified Allergy, Intermediate, RASH, 01/13/17) Dicyclomine (Verified Allergy, Intermediate, HIVES, 01/13/17) HIVES Penicillins (Verified Allergy, Intermediate, RASH; has tolerated cephs ( Rocephin, Keflex, Ceftin), 01/13/17) PT STATES SHE GETS WELTS FROM CIPRO,LEVAQUIN ALLERGY PER DR ROBLES Tetracyclines (Verified Allergy, Intermediate, DOXYCYCLINE-HIVES, 01/13/17 ) Sulindac (Verified Allergy, Mild, ALLERGY LISTED "CLONDORAL"--HIVES, ) Adhesives (Verified Allergy, Unknown, RASH, DUODERM=RED,ITCHY, 01/13/17) PLASTIC TAPE IS OK!!! DUODERM=RED,ITCHY Metronidazole (Verified Allergy, Unknown, SEIZURE, 01/13/17) Tramadol (Verified Allergy, Unknown, SEIZURES, 01/13/17) Metoclopramide (Verified Adverse Reaction, Severe, SEIZURES, 01/13/17) Blueberry (Verified Adverse Reaction, Mild, STOMACH PAIN, 01/13/17) Furosemide (Verified Adverse Reaction, Unknown, HIVES, 01/13/17) Physical Exam Vital Signs Date Time Temp Pulse Resp B/P (MAP) Pulse Ox O2 Delivery O2 Flow Rate FiO2 01/13/17 13:40 78 14 124/66 100 01/13/17 12:35 100 Room Air 01/13/17 12:31 76 16 135/66 100 Room Air 01/13/17 12:30 76 18 135/66 98 Room Air 01/13/17 11:48 Room Air 01/13/17 10:45 36.9 91 15 121/77 100 Room Air Physical Exam GENERAL: Patient is in no acute distress. HEENT: No acute trauma, normocephalic atraumatic, Pupils equal, active round and reactive to light, mucous membranes moist, no nasal congestion, no scleral icterus. NECK: No stridor, no adenopathy, no meningismus, trachea is midline. LUNGS: Clear to auscultation bilaterally, no wheeze, no rhonchi, breath sounds equal. HEART: Subtle systolic murmur, regular rate and rhythm. ABDOMEN: Soft, nontender, bowel sounds positive, no hernias, no peritonitis. EXTREMITIES: No cyanosis or edema, full range of motion of all the joints without pain or difficulty, no signs for acute trauma. NEUROLOGIC: Somnolent, confused, moving all extremities, no facial droop. SKIN: No rash, no jaundice, no diaphoresis. Medical Decision & Procedures ER Provider Diagnostic Interpretation: Radiology results as stated below per my review and radiologist interpretation: SINGLE VIEW CHEST CLINICAL HISTORY: Weakness. Change in mental status. FINDINGS: An AP, portable, upright chest radiograph is compared to study dated 01/12/2017. The examination is degraded by portable technique, large body habitus, patient rotation, and by the patient's head obscuring the apices. A right sided central venous infusion port is unchanged in position. Electronic device projects over the left lower chest. The cardiomediastinal heart is top normal for projection. The pulmonary vasculature is noncongested. There are low lung volumes with bibasilar atelectasis. The lungs and pleural spaces are otherwise clear. No pneumothorax is seen. The skeletal structures are osteopenic. The bony thorax is grossly intact. Chronic posttraumatic deformity and postoperative change is noted in the left humerus. IMPRESSION: Low lung volumes with no active disease in the chest. Electronically signed by: Aiden Randolph M.D. 01/13/2017 11:34 AM Dictated Date/Time: 01/13/2017 11:[address]AST CT DOSE: 788.63 mGycm HISTORY: EVALUATE ALTERED MENTAL STATUS/WEAKNESS TECHNIQUE: Multiaxial CT images of the head were performed without the use of intravenous contrast. Automated exposure control was utilized for this study. A dose lowering technique was utilized adhering to the principles of ALARA. Comparison: Head CT 12/30/2016. Findings: The paranasal sinuses and mastoid air cells are clear. The calvarium and skull base are intact. The ventricles and sulci are within normal limits. There is no mass, hematoma, midline shift, or acute infarct. Impression: No acute intracranial abnormality. Electronically signed by: Talon Cruz M.D. 01/13/2017 12:06 PM Dictated Date/Time: 01/13/2017 12:04 PM Laboratory Results 01/13/17 12:30 Red Blood Count 2.71, Mean Corpuscular Volume 102.2, Mean Corpuscular Hemoglobin 36.2, Mean Corpuscular Hemoglobin Concent 35.4, Mean Platelet Volume 10.1, Neutrophils (%) (Auto) 55.0, Lymphocytes (%) (Auto) 28.5, Monocytes (%) ( Auto) 12.1, Eosinophils (%) (Auto) 3.3, Basophils (%) (Auto) 0.8, Neutrophils # (Auto) 2.18, Lymphocytes # (Auto) 1.13, Monocytes # (Auto) 0.48, Eosinophils # ( Auto) 0.13, Basophils # (Auto) 0.03 01/13/17 12:30 Test 01/13/17 12:30 White Blood Count 3.96 K/uL (4.8-10.8) Red Blood Count 2.71 M/uL (4.2-5.4) Hemoglobin 9.8 g/dL (12.0-16.0) Hematocrit 27.7 % (37-47) Mean Corpuscular Volume 102.2 fL (80-100) Mean Corpuscular Hemoglobin 36.2 pg (25-34) Mean Corpuscular Hemoglobin Concent 35.4 g/dl (32-36) Platelet Count 96 K/uL (130-400) Mean Platelet Volume 10.1 fL (7.4-10.4) Neutrophils (%) (Auto) 55.0 % Lymphocytes (%) (Auto) 28.5 % Monocytes (%) (Auto) 12.1 % Eosinophils (%) (Auto) 3.3 % Basophils (%) (Auto) 0.8 % Neutrophils # (Auto) 2.18 K/uL (1.4-6.5) Lymphocytes # (Auto) 1.13 K/uL (1.2-3.4) Monocytes # (Auto) 0.48 K/uL (0.11-0.59) Eosinophils # (Auto) 0.13 K/uL (0-0.5) Basophils # (Auto) 0.03 K/uL (0-0.2) RDW Standard Deviation 61.0 fL (36.4-46.3) RDW Coefficient of Variation 16.4 % (11.5-14.5) Immature Granulocyte % (Auto) 0.3 % Immature Granulocyte # (Auto) 0.01 K/uL (0.00-0.02) Hypersegmented Polys 1+ Toxic Granulation 1+ Toxic Vacuolation 1+ Platelet Estimate DECREASED Macrocytosis PRESENT Anion Gap 8.0 mmol/L (3-11) Est Creatinine Clear Calc Drug Dose 139.3 ml/min Estimated GFR () 126.6 Estimated GFR (Non- 109.3 BUN/Creatinine Ratio 22.9 (10-20) Calcium Level 7.4 mg/dl (8.5-10.1) Magnesium Level 1.9 mg/dl (1.8-2.4) Total Bilirubin 1.5 mg/dl (0.2-1) Aspartate Amino Transf (AST/SGOT) 41 U/L (15-37) Alanine Aminotransferase (ALT/SGPT) 41 U/L (12-78) Alkaline Phosphatase 220 U/L (45-117) Ammonia 153.0 umol/L (11-32) Total Creatine Kinase 75 U/L (26-192) Troponin I < 0.015 ng/ml (0-0.045) Total Protein 5.5 gm/dl (6.4-8.2) Albumin 2.8 gm/dl (3.4-5.0) Globulin 2.7 gm/dl (2.5-4.0) Albumin/Globulin Ratio 1.0 (0.9-2) Thyroid Stimulating Hormone (TSH) 1.230 uIu/ml (0.300-4.500) Free Thyroxine 0.80 ng/dl (0.80-1.60) Laboratory results reviewed by me. Medications Administered Medications (Trade) Dose Ordered Sig/Danita Route Start Time Stop Time Status Last Admin Dose Admin Sodium Chloride 500 ml @ 999 mls/hr Q31M STAT IV 01/13/17 11:02 01/13/17 11:32 DC 01/13/17 11:02 999 MLS/HR ECG Indication: altered mental status Rate (beats per minute): 85 Rhythm: normal sinus Findings: no acute ischemic change, no ectopy ED Course 1101: The patient was evaluated in room B9. A complete history and physical exam was performed. 1102: Ordered Sodium Chloride 500 ml @ 999 mls/hr IV. 1201: I spoke to Dr. Rice [facility] regarding the patient's case. He is going to evaluate the patient for further treatment. 1335: I reevaluated the patient and she is resting. I updated the patient on the test results. She will be evaluated for further treatment. Medical Decision The patient is a 51 year old female who presents to the ED with complaints of a change in mental status. Differential diagnoses considered include hepatic encephalopathy, dehydration, electrolyte imbalance, stroke, intracranial bleeding, infection, UTI. There is a low white count, hemoglobin and platelet count-this is baseline for the patient. No significant electrolyte abnormality requiring correction. No renal failure. There were some mild LFT elevations which have been documented in the past. The patient appears to be in a euthyroid state. Ammonia level was quite high consistent with hepatic encephalopathy. EKG shows a sinus rhythm , no acute ischemia. Cardiac enzyme testing times one is not consistent with acute cardiac injury. Brain CT shows no acute bleed or mass effect. Chest x- ray does not show pneumonia or CHF. Urinalysis result is pending. The patient received IV saline. She has an elevated ammonia level. This has caused her change in mental status. I do think a hospital stay is required. She has had previous presentations similar to today's. I spoke to the patient and case management. The on-call hospitalist was consulted. Medication Reconcilliation Current Medication List: was personally reviewed by me Blood Pressure Screening Patient's blood pressure: Normal blood pressure Blood pressure disposition: Did not require urgent referral Consults Time Called: 1200 Consulting Physician: TAVARES Marshall Returned Call: 1201 I spoke to TAVARES Marshall regarding the patient's case. He is going to evaluate the patient for further treatment. Impression Primary Impression: Change in mental status Additional Impression: Hepatic encephalopathy Scribe Attestation The scribe's documentation has been prepared under my direction and personally reviewed by me in its entirety. I confirm that the note above accurately reflects all work, treatment, procedures, and medical decision making performed by me. Departure Information Dispostion Being Evaluated By Hospitalist Referrals No Doctor, Assigned (PCP) Problem Qualifiers
--- NOTE | 2017-01-13 11:36 | DIAGNOSTIC IMAGING REPORT ---
SINGLE VIEW CHEST CLINICAL HISTORY: Weakness. Change in mental status. FINDINGS: An AP, portable, upright chest radiograph is compared to study dated 01/12/2017. The examination is degraded by portable technique, large body habitus, patient rotation, and by the patient's head obscuring the apices. A right sided central venous infusion port is unchanged in position. Electronic device projects over the left lower chest. The cardiomediastinal heart is top normal for projection. The pulmonary vasculature is noncongested. There are low lung volumes with bibasilar atelectasis. The lungs and pleural spaces are otherwise clear. No pneumothorax is seen. The skeletal structures are osteopenic. The bony thorax is grossly intact. Chronic posttraumatic deformity and postoperative change is noted in the left humerus. IMPRESSION: Low lung volumes with no active disease in the chest. Electronically signed by: Aiden Randolph M.D. 01/13/2017 11:34 AM Dictated Date/Time: 01/13/2017 11:33 AM
--- NOTE | 2017-01-13 12:08 | DIAGNOSTIC IMAGING REPORT ---
HEAD CT NONCONTRAST CT DOSE: 788.63 mGycm HISTORY: EVALUATE ALTERED MENTAL STATUS/WEAKNESS TECHNIQUE: Multiaxial CT images of the head were performed without the use of intravenous contrast. Automated exposure control was utilized for this study. A dose lowering technique was utilized adhering to the principles of ALARA. Comparison: Head CT 12/30/2016. Findings: The paranasal sinuses and mastoid air cells are clear. The calvarium and skull base are intact. The ventricles and sulci are within normal limits. There is no mass, hematoma, midline shift, or acute infarct. Impression: No acute intracranial abnormality. Electronically signed by: Talon Cruz M.D. 01/13/2017 12:06 PM Dictated Date/Time: 01/13/2017 12:04 PM
[2017-01-13] MEDS ORDERED: SUMATRIPTAN SUCC TAB 100 MG TAB PO PRN (12:15)
[2017-01-13] MEDS ORDERED: ONDANSETRON INJ 2 MG/ML 2 ML VIAL IV PRN (12:15)
[2017-01-13] MEDS ORDERED: ALBUTEROL HFA 8 GM INHALER INH PRN (12:15)
[2017-01-13] MEDS ORDERED: ALUMINUM/MAGNESIUM/SIMETH (MAALOX MAX) 30 ML UDC PO PRN (12:15)
[2017-01-13] MEDS ORDERED: INFLUENZA VIRUS QUAD VACCINE 0.5 ML SYR IM. ONE (12:15)
[2017-01-13] MEDS ORDERED: ACETAMINOPHEN 325 MG TAB PO PRN (12:15)
[2017-01-13] MEDS ORDERED: CHOL100010 PO (12:22)
--- NOTE | 2017-01-13 12:24 | History and Physical ---
History & Physical Date & Time of Service: Jan 13, 2017 at 12:17 Chief Complaint: Mentally And Physically Slow Primary Care Physician: Olena Little DO History of Present Illness Ms. Munson is a 51-year-old female presenting with one day of encephalopahty despite lactulose use and stools. She well known to our service with recent discharges She suffers from seizure disorder and chronic liver failure with recurrent encephalopathy. She returns in a somewhat obtunded state over the last 24 hours, her who is at the bedside denies additions or omissions of medication or other substances. Her ammonia is pending. She is able to respond to questions, but frequently lays and stares into space. Her states that she has not had any other recent changes in her health other than some urinary frequency. Past Medical/Surgical History Medical Problems: (1) Asthma Status: Chronic (2) Bipol I, Rec Epis (Or Current) Depressed, Unspecified Status: Chronic (3) Cirrhosis Permanent Comment: from nonalcoholic fatty liver disease Status: Chronic (4) Diab Ashley Wo Comp Type Ii Or Nos/Not Uncontrolled Status: Chronic (5) Diabetes Status: Chronic (6) Diabetic gastroparesis Status: Chronic (7) Heart murmur Status: Chronic (8) History of hepatic encephalopathy Status: Chronic (9) Major depressive disorder with psychotic features Permanent Comment: with previous suicide attempts Status: Chronic (10) Migraines Status: Chronic (11) Myelodysplastic syndrome Status: Chronic (12) Pancytopenia Status: Chronic (13) Peptic ulcer disease Status: Chronic (14) Portal Hypertension Status: Chronic (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 Status: Chronic (16) Seizure disorder Permanent Comment: with pseudoseizures Status: Chronic Surgical Problems: (1) H/O nasal septoplasty Status: Chronic (2) History of appendectomy Status: Chronic (3) History of cholecystectomy Status: Chronic (4) History of hysterectomy Status: Chronic (5) History of kyphoplasty Permanent Comment: lumbar Status: Chronic (6) History of tonsillectomy Status: Chronic (7) s/p spinal stimulator placement Status: Chronic Family History Depression Hypertension Social History Smoking Status: Never Smoker Drug Use: none Marital Status: Housing status: lives with family Occupational Status: disabled Immunizations History of Influenza Vaccine: Yes Influenza Vaccine Date: Feb 02, 2013 History of Tetanus Vaccine?: utd Tetanus Immunization Date: Jun 11, 2008 History of Pneumococcal: SEE LAST PACKET Pneumococcal Date: Nov 13, 2008 History of Hepatitis B Vaccine: Unknown Hepatitis Immunization Date: Jan 12, 1996 Multi-Drug Resistant Organisms History of MDRO: No Allergies Coded Allergies: Amoxicillin (Verified Allergy, Intermediate, HIVES; Has tolerated cephalosporins (Rocephin, Ceftin,Keflex, 01/13/17) Azithromycin (Verified Allergy, Intermediate, HIVES, 01/13/17) Baclofen (Verified Allergy, Intermediate, RASH, 01/13/17) Butalbital (Verified Allergy, Intermediate, HIVES, 01/13/17) Clarithromycin (Verified Allergy, Intermediate, RASH, 01/13/17) Dicyclomine (Verified Allergy, Intermediate, HIVES, 01/13/17) HIVES Penicillins (Verified Allergy, Intermediate, RASH; has tolerated cephs ( Rocephin, Keflex, Ceftin), 01/13/17) PT STATES SHE GETS WELTS FROM CIPRO,LEVAQUIN ALLERGY PER DR ROBLES Tetracyclines (Verified Allergy, Intermediate, DOXYCYCLINE-HIVES, 01/13/17 ) Sulindac (Verified Allergy, Mild, ALLERGY LISTED "CLONDORAL"--HIVES, ) Adhesives (Verified Allergy, Unknown, RASH, DUODERM=RED,ITCHY, 01/13/17) PLASTIC TAPE IS OK!!! DUODERM=RED,ITCHY Metronidazole (Verified Allergy, Unknown, SEIZURE, 01/13/17) Tramadol (Verified Allergy, Unknown, SEIZURES, 01/13/17) Metoclopramide (Verified Adverse Reaction, Severe, SEIZURES, 01/13/17) Blueberry (Verified Adverse Reaction, Mild, STOMACH PAIN, 01/13/17) Furosemide (Verified Adverse Reaction, Unknown, HIVES, 01/13/17) Home Medications Scheduled Ascorbic Acid (Vitamin C), 1,000 MG PO DAILY Bumetanide (Bumex), 0.5 TAB PO DIRECTED Carbidopa/Levodopa (Sinemet 25MG/100MG), 1 TAB PO TID Cranberry (Vaccinium Macrocarp (Cranberry), 1 TAB PO TID Ferrous Sulfate (Ferrous Sulfate), 325 MG PO QPM Fluticasone Propionate (Fluticasone Propionate), 1 SPRAY ABRAHAN DAILY Insulin Glargine (Toujeo Solostar), 38 UNITS SQ QAM Insulin Lispro (Human) (Humalog Kwikpen), UNITS SC UD Lactulose (Lactulose), 20 GM PO BID Lecithin (Cvs Lecithin), 1 CAP PO DAILY Levetiracetam (Levetiracetam), 2,000 MG PO BID Levothyroxine Sodium (Levothyroxine Sodium), 75 MCG PO QAM Lutein-Zeaxanthin (Lutein), 1 CAP PO DAILY Magnesium Oxide (Mag-Ox), 400 MG PO TID Mirtazapine (Mirtazapine), 1 TAB PO HS Multivitamin (Multivitamin), 1 TAB PO DAILY Omeprazole (Prilosec), 20 MG PO QAM Ondasetron Odt (Zofran Odt), 4 MG SL Q6H Oxcarbazepine (Trileptal), 600 MG PO BID Probiotic Product (Probiotic), 1 CAP PO DAILY Ranitidine HCl (Ranitidine HCl), 150 MG PO BID Rifaximin (Xifaxan), 550 MG PO BID Spironolactone (Aldactone), 25 MG PO QAM Topiramate (Topamax), 50 MG PO BID Topiramate (Topamax ), 25 MG PO BID Triamcinolone Acetonide (Nasal (Nasacort Allergy 24Hr), 1 SPRAY ABRAHAN DAILY Vitamin A (Gnp Vitamin A), 8,000 UNITS PO DAILY Zinc Gluconate (Zinc), 50 MG PO BID Scheduled PRN Albuterol Hfa (Ventolin Hfa), 2-4 PUFFS INH Q6H PRN for Shortness of Breath Epinephrine (Epipen), 0.3 MG IM UD PRN for ALLERGIC REACTION Glucose-Vitamin C (Glucose), 1 CHW PO UD PRN for Hypoglycemia Naproxen Sodium-Diphenhydramin (Aleve Pm 220-25 mg), 1 TAB PO QPM PRN for Pain Oxycodone Ir (Roxicodone Ir), 5 MG PO Q8 PRN for Pain Promethazine (Phenergan ), 1 TAB PO BID PRN for Nausea or Vomiting Sumatriptan Succinate (Imitrex), 100 MG PO UD PRN for Migraine Review of Systems Constitutional: No fever, No chills Eyes: No worsening of vision, No eye pain Respiratory: No cough, No sputum Cardiovascular: No chest pain, No orthopnea Abdomen: + diarrhea, No pain, No nausea, No vomiting Genitourinary - Female: + dysuria, + urinary frequency Neurologic: + memory loss, + weakness Psychiatric: + depression symptoms, + anhedonism Endocrine: + fatigue, No excessive thirst Hematologic / Lymphatic: No abnormal bleeding/bruising, No swollen lymph nodes Integumentary: No rash, No itch Physical Exam Vital Signs Date Time Temp Pulse Resp B/P (MAP) Pulse Ox O2 Delivery O2 Flow Rate FiO2 01/13/17 11:48 Room Air 01/13/17 10:45 36.9 91 15 121/77 100 Room Air General Appearance: WD/WN, + moderate distress, + obese Head: normocephalic, atraumatic Eyes: PERRL, EOMI ENT: hearing grossly normal, pharynx normal Neck: supple, no adenopathy, no JVD Respiratory/Chest: chest non-tender, lungs clear, normal breath sounds Cardiovascular: regular rate, rhythm, no murmur Abdomen/GI: normal bowel sounds, non tender, soft Back: no CVA tenderness, no muscle spasm Extremities/Musculoskelatal: no pedal edema, normal range of motion Neurologic/Psych: alert (but lethargic), + disoriented Skin: normal color, warm/dry Diagnostics Laboratory Results Results Past 24 Hours Test 01/13/17 11:02 Range/Units Diagnostic Radiology ct head is normal CXR normal Impression Assessment and Plan A 51-year-old female with hepatic encephalopathy with a concern for urinary tract infection on admission as per encephalopathy, the patient will be given her scheduled lactulose and Xifaxan following daily ammonia levels, initial CT head did not show any areas of concern Regarding her diabetes, the patient typically is very particular about taking her Toujeo. We will continue this as will be brought in by her and continue using an insulin sliding scale With her seizure medications, will continue her Topamax, Keppra and Lamictal. previously she was pancytopenic thought to be from her liver disease, labs are currently pending at time of admission Regarding her psychological disturbance and bipolar disorder, we will maintain her home medications. Regarding her chronic headaches, will offer her Imitrex as needed. Heparin will be used for DVT prevention she is a significant fall risk will have PT/PT and activity with supervision at all times VTE Prophylaxis VTE Risk Assessment Done? Y/N: Yes Risk Level: Moderate
[2017-01-13] MEDS ORDERED: RMR15 PO (12:27)
[2017-01-13 12:35] VITALS: BP 118/78; PULSE 77; TEMP 36.7; O2SAT 100; BMI 34.3
[2017-01-13 12:38] VITALS: Ht 165.1 cm; Wt 93.5 kg
[2017-01-13 12:47] LABS: HEMATOCRIT 27.7 % (37-47); MEAN CELL VOLUME 102.2 fL (80-100); MEAN CORPUSCULAR HEMOGLOBIN 36.2 pg (25-34); MEAN CORPUSCULAR HGB CONC 35.4 g/dl (32-36); RED BLOOD COUNT 2.71 M/uL (4.2-5.4); WHITE BLOOD COUNT 3.96 K/uL (4.8-10.8)
[2017-01-13 13:06] LABS: MEAN PLATELET VOLUME 10.1 fL (7.4-10.4); PLATELET COUNT 96 K/uL (130-400)
[2017-01-13 13:07] LABS: BASO % 0.8 %; BASO ABS # 0.03 K/uL (0-0.2); COMPLETE YES; EOS % 3.3 %; HYPERSEGMENTED POLYS 1+; IG% 0.3 %; LYMPH % 28.5 %; LYMPH ABS # 1.13 K/uL (1.2-3.4); MONO % 12.1 %; PLT ESTIMATE DECREASED; TOXIC GRANULATION 1+; VACUOLIZATION 1+
[2017-01-13 13:08] LABS: ALT/SGPT 41 U/L (12-78); AST/SGOT 41 U/L (15-37); BLOOD UREA NITROGEN 12 mg/dl (7-18); BUN/CREATININE RATIO 22.9 (10-20); CALCIUM 7.4 mg/dl (8.5-10.1); CARBON DIOXIDE 22 mmol/L (21-32); CHLORIDE 113 mmol/L (98-107); CREATININE 0.54 mg/dl (0.60-1.20); GLUCOSE 180 mg/dl (70-99); MAGNESIUM 1.9 mg/dl (1.8-2.4); POTASSIUM 3.9 mmol/L (3.5-5.1); SODIUM 143 mmol/L (136-145)
[2017-01-13] MEDS ORDERED: DEXTROSE 50% 50 ML SYR IV PRN (13:15)
[2017-01-13] MEDS ORDERED: POLYETHYLENE (MIRALAX) 17 GM PACK PO PRN (13:15)
[2017-01-13] MEDS ORDERED: GLUCOSE 10 TABS/TUBE PO PRN (13:15)
[2017-01-13] MEDS ORDERED: GLUCOSE 40% GEL 15 GM TUBE PO PRN (13:15)
[2017-01-13] MEDS ORDERED: GLUCAGON FOR INJ 1 MG VIAL SQ PRN (13:15)
[2017-01-13 13:16] LABS: ALKALINE PHOSPHATASE 220 U/L (45-117)
[2017-01-13] MEDS ORDERED: IV FLUIDS COMPLETED PRN (14:15)
[2017-01-13] MEDS ORDERED: PHARMACY GLYCEMIC MGMT CONSULT PRN (14:26)
--- NOTE | 2017-01-13 14:44 | Pharmacy Progress Note ---
Glycemic Control Intl Consult Date of Service Jan 13, 2017. Scope Glycemic Pharmacist consulted by Dr Rice on 01/13/17 for glycemic control and to write orders per [facility] inpatient glycemic control protocol Objective Weight (Kilograms): 93.500 Accuchecks BSG (last 24hrs): Test 01/13/17 12:30 Random Glucose 180 mg/dl (70-99) Laboratory Data (last 24hrs) Test 01/13/17 12:30 Anion Gap 8.0 mmol/L BUN/Creatinine Ratio 22.9 Blood Urea Nitrogen 12 mg/dl Creatinine 0.54 mg/dl Potassium Level 3.9 mmol/L Sodium Level 143 mmol/L White Blood Count 3.96 K/uL Red Blood Count 2.71 M/uL Hemoglobin 9.8 g/dL Hematocrit 27.7 % Mean Corpuscular Volume 102.2 fL Mean Corpuscular Hemoglobin 36.2 pg Mean Corpuscular Hemoglobin Concent 35.4 g/dl Platelet Count 96 K/uL Mean Platelet Volume 10.1 fL Neutrophils (%) (Auto) 55.0 % Lymphocytes (%) (Auto) 28.5 % Monocytes (%) (Auto) 12.1 % Eosinophils (%) (Auto) 3.3 % Basophils (%) (Auto) 0.8 % Neutrophils # (Auto) 2.18 K/uL Lymphocytes # (Auto) 1.13 K/uL Monocytes # (Auto) 0.48 K/uL Eosinophils # (Auto) 0.13 K/uL Basophils # (Auto) 0.03 K/uL Recent Pertinent Medications Outpatient Anti-diabetic Regimen: * Toujeo 38 units SQ qAM plus Humalog TID with meals * A1c = 4.8 % 12/31/16 Risk Factors for Insulin Resistance: * Diet: type 2 diabetic diet Assessment & Plan ASSESSMENT: * ADA & AACE recommend a goal blood sugar range 140-180 mg/dl for the majority of critically ill & non-critically ill patients. However, more stringent targets may be selected in individual cases. Will utilize more stringent goal of 110-140 mg/dl based on patient age & comorbidities. Additionally, tighter glycemic control is warranted to help with disease states. * Ms Munson is a 51 y/o F with a PMH of cirrhosis, seizures, and bipolar condition - who is well known to the glycemic service. She is currently admitted for confusion. She requests to use her own Toujeo. Previous admissions demonstrate that she does well on her own Toujeo - will reduce the dose by approximately 20% since the patient is admitted to 30 units daily. If her Toujeo isn't available, can give Lantus 25 units tomorrow instead (dose is slightly lower since Toujeo has longer than 24 hour half-life). * Previous admissions demonstrate that the patient's correctional insulin provides excellent control when the correction factor is 15 mg/dL/unit and carbohydrate ratio 1 unit for every 5 grams of carbohydrates consumed. Will monitor closely. PLAN FOR INPATIENT GLYCEMIC CONTROL: * Basal insulin with TOUJEO 30 units SQ AM * Correctional Insulin with NOVOLOG per scale ACHS or Q6hrs while NPO * Goal Range: Low 110 mg/dL - High 140 mg/dL * Correction Factor: 15 mg/dL/unit * Nutritional / Prandial insulin per carb ratio of 1 unit per 5 grams CHO consumed * Please note that the plan above was derived based on current level of insulin resistance and hospital stress. These recommendations are appropriate for inpatient admission only. Plan of care upon discharge will need to be reassessed to avoid potential outpatient hypo/hyperglycemia. Thank you.
[2017-01-13 14:58] VITALS: O2SAT 99
[2017-01-13] MEDS: CEFTRIAXONE SOD INJ 1 GM in DEXTROSE 5% ADD-VANTAGE 50ML 50 ML IV SCH (15:46)
[2017-01-13] MEDS ORDERED: INSULIN ASPART 100 UNITS/ML 3 ML PEN SC SCH (16:00)
[2017-01-13] MEDS: OXYCODONE HCL IR 5 MG TAB (IMMEDIATE RELEASE) PO PRN (16:09)
[2017-01-13 16:14] LABS: URINE APPEARANCE CLEAR (CLEAR); URINE BILIRUBIN NEG (NEG); URINE COLOR DK YELLOW; URINE EPITHELIAL CELL AUTO 0-5 /lpf (0-5); URINE NITRITE NEG (NEG); URINE SPECIFIC GRAVITY 1.022 (1.000-1.030); UROBILINOGEN NEG (NEG); ZZURINE CULT IF INDIC CATH YES
[2017-01-13 16:16] LABS: MANUAL MICROSCOPIC REQUIRED? NO; REVIEW REQ? NO
[2017-01-13 16:21] VITALS: BP 118/78; PULSE 77; TEMP 36.7; O2SAT 98
[2017-01-13 16:57] LABS: BENZODIAZEPINE, URINE NEG (NEG); COCAINE,URINE NEG (NEG); PHENCYCLIDINE, URINE NEG (NEG)
[2017-01-13] MEDS: LACTULOSE SYRUP 20 GM/30 ML UDC PO SCH ×2 (16:57→21:13)
[2017-01-13] MEDS: INSULIN ASPART 100 UNITS/ML 3 ML PEN SC SCH ×2 (17:02→21:31)
[2017-01-13] MEDS ORDERED: OXCARBAZEPINE 150 MG TAB PO SCH (20:00)
[2017-01-13] MEDS ORDERED: LEVETIRACETAM 500 MG TAB PO SCH (20:00)
[2017-01-13] MEDS: RANITIDINE HCL 150 MG TAB PO SCH (21:15)
[2017-01-13] MEDS: MIRTAZAPINE TAB 15 MG TAB PO SCH (21:15)
[2017-01-13] MEDS: RIFAXIMIN TAB 550 MG TAB PO SCH (21:15)
[2017-01-13] MEDS: MAGNESIUM OXIDE 400 MG TAB PO SCH (21:16)
[2017-01-13] MEDS: TOPIRAMATE 25 MG TAB PO SCH (21:16)
[2017-01-13] MEDS: TOPIRAMATE 50 MG TAB PO SCH (21:17)
[2017-01-13] MEDS: HEPARIN SOD 5000 UNIT/0.5 ML CARP SQ SCH (21:31)
[2017-01-13 23:47] VITALS: BP 145/81; PULSE 76; TEMP 36.8; O2SAT 98
[2017-01-14 05:34] LABS: HEMATOCRIT 25.4 % (37-47); MEAN CORPUSCULAR HEMOGLOBIN 36.1 pg (25-34); MEAN CORPUSCULAR HGB CONC 35.4 g/dl (32-36); RED BLOOD COUNT 2.49 M/uL (4.2-5.4)
[2017-01-14 05:39] LABS: PLATELET COUNT 78 K/uL (130-400)
[2017-01-14 05:55] LABS: BUN/CREATININE RATIO 25.4 (10-20); CALCIUM 7.5 mg/dl (8.5-10.1); CREATININE 0.49 mg/dl (0.60-1.20); POTASSIUM 3.8 mmol/L (3.5-5.1)
[2017-01-14] MEDS: LEVOTHYROXINE 75 MCG TAB PO SCH (06:02)
[2017-01-14 07:03] VITALS: BP 126/75; PULSE 80; TEMP 36.3; O2SAT 96
[2017-01-14] MEDS: LACTULOSE SYRUP 20 GM/30 ML UDC PO SCH ×3 (07:55→20:52)
[2017-01-14] MEDS: RIFAXIMIN TAB 550 MG TAB PO SCH ×2 (07:55→20:55)
[2017-01-14] MEDS: TOPIRAMATE 50 MG TAB PO SCH ×2 (07:55→20:54)
[2017-01-14] MEDS: MULTIVITAMIN TAB PO SCH (07:55)
[2017-01-14] MEDS: PANTOprazole SOD 40 MG TAB PO SCH (07:55)
[2017-01-14] MEDS: RANITIDINE HCL 150 MG TAB PO SCH ×2 (07:57→20:53)
[2017-01-14] MEDS: TOPIRAMATE 25 MG TAB PO SCH ×2 (07:57→20:55)
[2017-01-14] MEDS: HEPARIN SOD 5000 UNIT/0.5 ML CARP SQ SCH ×2 (07:57→21:02)
[2017-01-14] MEDS: MAGNESIUM OXIDE 400 MG TAB PO SCH ×3 (07:57→20:54)
[2017-01-14] MEDS: SPIRONOLACTONE 25 MG TAB PO SCH (07:58)
[2017-01-14] MEDS: TRIAMCINOLONE ACET NASAL SPRAY 10.8ML BTL NAE SCH (07:58)
[2017-01-14] MEDS ORDERED: LANTUS PER UNIT CHARGE SQ SCH (08:00)
[2017-01-14] MEDS ORDERED: INSULIN GLARGINE 38 UNIT SQ SCH (08:00)
[2017-01-14] MEDS ORDERED: FLUTICASONE PROPIONATE NA SPR 16 GM BTL NAE SCH (08:00)
[2017-01-14] MEDS: INSULIN ASPART 100 UNITS/ML 3 ML PEN SC SCH ×4 (08:07→21:04)
[2017-01-14] MEDS: OXCARBAZEPINE 300 MG TAB PO SCH ×2 (08:36→20:54)
[2017-01-14] MEDS: LEVETIRACETAM 1000 MG PO SCH ×2 (08:37→20:52)
[2017-01-14] MEDS: INSULIN GLARGINE 300 UNITS/ML INJ SC SCH (08:41)
[2017-01-14] MEDS ORDERED: LACTULOSE SYRUP 20 GM/30 ML UDC PO ONE (09:00)
--- NOTE | 2017-01-14 13:11 | Progress Note ---
Subjective Date of Service: Jan 14, 2017. Subjective Pt evaluation today including: conversation w/ patient, physical exam, chart review, lab review, review of inpatient medication list awake and alert. recognizes me immediately. no new complaints. does relate that she's been having dysuria. gives inconsistent histories on lactulose at home - noting that she never misses a dose but then later noting that if she's having loose stools her will reduce the dose also wonders if she shouldn't have eaten a 12 inch turkey sub on friday and thinks that might have been part of what led to hyperammonia as well - willing to talk w mold maintenance technician about lower protein in diet Problem List Medical Problems: (1) Acute bronchitis Status: Acute (2) Acute hepatic encephalopathy Status: Acute (3) Alkaline phosphatase elevation Status: Acute (4) Back pain Status: Acute (5) Bradycardia Status: Acute (6) Breakthrough seizure Status: Acute (7) Burn Status: Acute (8) Change in mental status Status: Acute (9) Change in mental status Status: Acute (10) Change in mental status Status: Acute (11) Change in mental status Status: Acute (12) Chronic low back pain Status: Acute (13) Closed head injury Status: Acute (14) Dehydration Status: Acute (15) Dizziness Status: Acute (16) Facial laceration Status: Acute (17) Fall Status: Acute (18) Fall Status: Acute (19) Fall Status: Acute (20) Fatigue Status: Acute (21) Hemorrhoid Status: Acute (22) Hepatic encephalopathy Status: Acute (23) Hepatic encephalopathy Status: Acute (24) Hepatic encephalopathy Status: Acute (25) Hepatic encephalopathy Status: Acute (26) Hepatic encephalopathy Status: Acute (27) Hepatic encephalopathy Status: Acute (28) Hepatic encephalopathy Status: Acute (29) Hepatic encephalopathy Status: Acute (30) Hepatic encephalopathy Status: Acute (31) Hepatic encephalopathy Status: Acute (32) Hepatic encephalopathy Status: Acute (33) Hyperammonemia Status: Acute (34) Hyperammonemia Status: Acute (35) Hyperammonemia Status: Acute (36) Hyperammonemia Status: Acute (37) Hypocalcemia Status: Acute (38) Hypocalcemia Status: Acute (39) Hypokalemia Status: Acute (40) Hypomagnesemia Status: Acute (41) Increased ammonia level Status: Acute (42) Left foot pain Status: Acute (43) Left shoulder pain Status: Acute (44) Leukopenia Status: Acute (45) Low back pain Status: Acute (46) Migraine Status: Acute (47) Nausea & vomiting Status: Acute (48) Noncompliance with medication regimen Status: Acute (49) Pain in pelvis Status: Acute (50) Pancytopenia Status: Acute (51) Post-operative pain Status: Acute (52) Right ear pain Status: Acute (53) Right groin pain Status: Acute (54) Right hip pain Status: Acute (55) Right upper lobe pneumonia Status: Acute (56) RUQ abdominal pain Status: Acute (57) Sepsis Status: Acute (58) Vomiting Status: Acute (59) Weakness Status: Acute (60) Weakness Status: Acute (61) Weakness Status: Acute (62) Weakness Status: Acute Review of Systems all other ROS otherwise negative except for as above Objective Vital Signs Date Time Temp Pulse Resp B/P (MAP) Pulse Ox O2 Delivery O2 Flow Rate FiO2 01/14/17 08:00 Room Air 01/14/17 07:03 36.3 80 20 126/75 (92) 96 Room Air 01/14/17 04:00 Room Air 01/14/17 00:00 Room Air 01/13/17 23:47 36.8 76 18 145/81 (102) 98 Room Air 01/13/17 20:00 Room Air 01/13/17 16:21 36.7 77 18 118/78 (91) 98 Room Air 01/13/17 14:58 81 16 110/70 99 01/13/17 14:38 81 16 110/70 99 Room Air 01/13/17 13:40 78 14 124/66 100 Physical Exam General Appearance: no apparent distress Eyes: EOMI ENT: hearing grossly normal Neck: trachea midline Respiratory/Chest: no respiratory distress, no accessory muscle use Neurologic/Psychiatric: carton liner II-XII nml as tested, alert, normal mood/affect Skin: normal color, warm/dry Laboratory Results Last 24 Hours Test 01/13/17 15:50 01/13/17 16:36 01/13/17 20:41 01/14/17 05:27 Urine Color DK YELLOW Urine Appearance CLEAR Urine pH 8.0 Urine Specific [place] 1.022 Urine Protein NEG Urine Glucose (UA) NEG Urine Ketones NEG Urine Occult Blood NEG Urine Nitrite NEG Urine Bilirubin NEG Urine Urobilinogen NEG Urine Leukocyte Esterase MODERATE Urine WBC (Auto) 10-30 /hpf Urine RBC (Auto) 0-4 /hpf Urine Hyaline Casts (Auto) 1-5 /lpf Urine Epithelial Cells (Auto) 0-5 /lpf Urine Bacteria (Auto) 4+ Urine Opiates Screen POS Urine Methadone, Qualitative NEG Urine Barbiturates NEG Urine Phencyclidine (PCP) Level NEG Ur Amphetamine/Methamphetamine NEG MDMA (Ecstasy) Screen NEG Urine Benzodiazepines Screen NEG Urine Cocaine Metabolite NEG Urine Marijuana (THC) NEG Bedside Glucose 95 mg/dl 170 mg/dl White Blood Count 3.30 K/uL Red Blood Count 2.49 M/uL Hemoglobin 9.0 g/dL Hematocrit 25.4 % Mean Corpuscular Volume 102.0 fL Mean Corpuscular Hemoglobin 36.1 pg Mean Corpuscular Hemoglobin Concent 35.4 g/dl RDW Standard Deviation 60.7 fL RDW Coefficient of Variation 16.3 % Platelet Count 78 K/uL Mean Platelet Volume 10.0 fL Sodium Level 144 mmol/L Potassium Level 3.8 mmol/L Chloride Level 113 mmol/L Carbon Dioxide Level 27 mmol/L Anion Gap 4.0 mmol/L Blood Urea Nitrogen 13 mg/dl Creatinine 0.49 mg/dl Est Creatinine Clear Calc Drug Dose 153.5 ml/min Estimated GFR () 130.7 Estimated GFR (Non- 112.8 BUN/Creatinine Ratio 25.4 Random Glucose 160 mg/dl Calcium Level 7.5 mg/dl Total Bilirubin 1.4 mg/dl Aspartate Amino Transf (AST/SGOT) 41 U/L Alanine Aminotransferase (ALT/SGPT) 38 U/L Alkaline Phosphatase 213 U/L Ammonia 152.0 umol/L Total Protein 5.3 gm/dl Albumin 2.6 gm/dl Globulin 2.7 gm/dl Albumin/Globulin Ratio 1.0 Test 01/14/17 06:59 Bedside Glucose 153 mg/dl Assessment and Plan cirrhosis w hepatic encephalopathy -ammonia hasn't improved, but clinically she is basically at baseline -continue lactulose, follow ammonia periodically -certainly suspect adherence is a major issue - both w lactulose and diet -refer to mold maintenance technician outpt for low protein teaching proteus UTI -rocephin pending ID&S seizure disorder -notes that she's tried to have meds reduced but has run into seizures, also had seizures a few times this summer -keep meds at current dosing DVT proph -heparin SQ dispo - notes that her can't get her today - will be able to pick her up tomorrow AM
[2017-01-14] MEDS: OXYCODONE HCL IR 5 MG TAB (IMMEDIATE RELEASE) PO PRN (13:58)
[2017-01-14 14:47] VITALS: BP 125/76; PULSE 84; TEMP 36.9; O2SAT 98
[2017-01-14] MEDS: CEFTRIAXONE SOD INJ 1 GM in DEXTROSE 5% ADD-VANTAGE 50ML 50 ML IV SCH (16:20)
[2017-01-14] MEDS: MIRTAZAPINE TAB 15 MG TAB PO SCH (20:56)
[2017-01-14 23:30] VITALS: BP 150/84; PULSE 84; TEMP 36.5; O2SAT 98
[2017-01-15] MEDS: OXYCODONE HCL IR 5 MG TAB (IMMEDIATE RELEASE) PO PRN (00:30)
[2017-01-15] MEDS: LEVOTHYROXINE 75 MCG TAB PO SCH (06:45)
--- NOTE | 2017-01-15 07:34 | Discharge Instructions ---
Discharge Instructions Date of Service Jan 15, 2017. Admission Reason for Admission: Encephalopathy Discharge Discharge Diagnosis / Problem: hepatic encephalopathy Discharge Goals Goal(s): Diagnostic testing, Therapeutic intervention Activity Recommendations Activity Limitations: resume your previous activity . Instructions / Follow-Up Instructions / Follow-Up please do not skip, reduce or otherwise lessen your lactuose dosing. given your track record, you're far more at risk for getting confusion/encephalopathy from not taking enough than you are from getting dehydrated if you had diarrhea from taking it. if you were worried about getting dehydrated from diarrhea, it would be better to be evaluated by your primary care doc for dehydration (and given IV fluids if necessary) than to alter your medications and end up hospitalized from encephalopathy we'll get you set up with a jacker feeder to discuss low protein - our nurse navigator is working on this. for now, certainly try to be minimal with how much meat you eat Current Hospital Diet Patient's current hospital diet: Diabetes Type 2 Diet Discharge Diet Recommended Diet: Diabetes Type 2 Diet (low protein) Pending Studies Studies pending at discharge: no Laboratory Results Hemoglobin A1c Test 12/31/16 05:08 Range/Units Estimated Average Glucose 91 mg/dl Hemoglobin A1c 4.8 4.5-5.6 % Medical Emergencies . Who to Call and When: Medical Emergencies: If at any time you feel your situation is an emergency, please call 911 immediately. . Non-Emergent Contact Non-Emergency issues call your: Primary Care Provider (have an ammonia level checked again as an outpatient tomorrow) . . "Provider Documentation" section prepared by [employer]. . VTE Core Measure Inpt VTE Proph given/why not?: Contraindicated
[2017-01-15] MEDS ORDERED: CEFD1CAP14 PO (07:42)
[2017-01-15] MEDS: TRIAMCINOLONE ACET NASAL SPRAY 10.8ML BTL NAE SCH (08:25)
[2017-01-15] MEDS: PANTOprazole SOD 40 MG TAB PO SCH (08:26)
[2017-01-15] MEDS: MULTIVITAMIN TAB PO SCH (08:26)
[2017-01-15] MEDS: RANITIDINE HCL 150 MG TAB PO SCH (08:26)
[2017-01-15] MEDS: TOPIRAMATE 25 MG TAB PO SCH (08:27)
[2017-01-15] MEDS: MAGNESIUM OXIDE 400 MG TAB PO SCH (08:27)
[2017-01-15] MEDS: TOPIRAMATE 50 MG TAB PO SCH (08:27)
[2017-01-15] MEDS: RIFAXIMIN TAB 550 MG TAB PO SCH (08:28)
[2017-01-15] MEDS: LACTULOSE SYRUP 20 GM/30 ML UDC PO SCH (08:28)
[2017-01-15] MEDS: LEVETIRACETAM 1000 MG PO SCH (08:28)
[2017-01-15] MEDS: OXCARBAZEPINE 300 MG TAB PO SCH (08:28)
[2017-01-15] MEDS: SPIRONOLACTONE 25 MG TAB PO SCH (08:29)
[2017-01-15] MEDS: INSULIN GLARGINE 300 UNITS/ML INJ SC SCH (08:31)
[2017-01-15] MEDS: INSULIN ASPART 100 UNITS/ML 3 ML PEN SC SCH (08:31)
[2017-01-15 08:53] VITALS: BP 150/84; PULSE 84; TEMP 36.5; O2SAT 98
[2017-01-15] MEDS: HEPARIN SOD 5000 UNIT/0.5 ML CARP SQ SCH (09:44)
--- NOTE | 2017-01-15 13:49 | Discharge Summary ---
Discharge Summary Date of Service Jan 15, 2017. Discharge Summary Admission Date: Jan 13, 2017 at 12:08 Discharge Date: Jan 15, 2017 Discharge Disposition: Home Principal Diagnosis: hepatic encephalopathy, UTI Immunizations: Have You Had Influenza Vaccine: Yes Influenza Vaccine Date: Feb 02, 2013 History of Tetanus Vaccine?: utd Tetanus Immunization Date: Jun 11, 2008 History of Pneumococcal: SEE LAST PACKET Pneumococcal Date: Nov 13, 2008 History of Hepatitis B Vaccine: Unknown Hepatitis Immunization Date: Jan 12, 1996 Procedures: urine culture w proteus sensitive to all but quinolones (dc'd on cephalosporin) Last 24 Hours Test 01/14/17 16:34 01/14/17 20:44 01/15/17 05:24 01/15/17 08:04 Bedside Glucose 143 mg/dl 117 mg/dl 145 mg/dl Ammonia 149.0 umol/L ammonia slowly coming down but mentation improved dramatically Medication Reconciliation New Medications: Cefdinir (Omnicef) 300 Mg Cap 300 MG PO Q12H, #10 CAP Continued Medications: Albuterol Hfa (Ventolin Hfa) 200 Puffs/04601 Mcg Aers 2-4 PUFFS INH Q6H PRN for Shortness of Breath, #1 INHALER Ascorbic Acid (Vitamin C) 1,000 Mg Tab 1000 MG PO DAILY Cholecalciferol (Vitamin D) 1,000 Unit Tab 5000 UNITS PO DAILY Cranberry (Vaccinium Macrocarp (Cranberry) Unknown Strength Tab 1 TAB PO TID Epinephrine (Epipen) 0.3 Mg/0.3 Ml Inj 0.3 MG IM UD PRN for ALLERGIC REACTION Ferrous Sulfate (Ferrous Sulfate) 325 Mg Tab 325 MG PO QPM Fluticasone Propionate (Fluticasone Propionate) 120 Sprays/6000 Mcg Inha 1 SPRAY ABRAHAN DAILY, #16 Glucose-Vitamin C (Glucose) 1 Chw Chw 1 CHW PO UD PRN for Hypoglycemia Insulin Glargine (Toujeo Solostar) 300 Unit/Ml Inj 38 UNITS SQ QAM Insulin Lispro (Human) (Humalog Kwikpen) 100 Unit/Ml Inj UNITS SC UD PER SLIDING SCALE Lactulose (Lactulose) 20 Gm/30 Ml Syrp 20 GM PO BID for 30 Days and titrate up or down on dose for goal of 3 bowel movements daily Lecithin (Cvs Lecithin) Unknown Strength Cap 1 CAP PO DAILY Levetiracetam (Levetiracetam) 1,000 Mg Tab 2000 MG PO BID Levothyroxine Sodium (Levothyroxine Sodium) 75 Mcg Tab 75 MCG PO QAM, TAB Lutein-Zeaxanthin (Lutein) 1 Cap Cap 1 CAP PO DAILY Magnesium Oxide (Mag-Ox) 400 Mg Tab 400 MG PO TID, TAB Mirtazapine (Mirtazapine) 15 Mg Tab 30 MG PO HS Multivitamin (Multivitamin) Tab 1 TAB PO DAILY, TAB Naproxen Sodium-Diphenhydramin (Aleve Pm 220-25 mg) 1 Tab Tab 1 TAB PO QPM PRN for Pain Omeprazole (Prilosec) 20 Mg Capcr 20 MG PO QAM, CAP Ondasetron Odt (Zofran Odt) 4 Mg Tab 4 MG SL Q6H for Nausea, #20 TAB Oxcarbazepine (Trileptal) 600 Mg Tab 600 MG PO BID Oxycodone Ir (Roxicodone Ir) 5 Mg Tab 5 MG PO Q8 PRN for Pain, #21 TAB 0 Refills Probiotic Product (Probiotic) 1 Cap Cap 1 CAP PO DAILY Promethazine (Phenergan ) 12.5 Mg Tab 1 TAB PO BID PRN for Nausea or Vomiting, #90 Ranitidine HCl (Ranitidine HCl) 150 Mg Tab 150 MG PO BID Rifaximin (Xifaxan) 550 Mg Tab 550 MG PO BID, TAB Spironolactone (Aldactone) 25 Mg Tab 25 MG PO QAM, TAB Sumatriptan Succinate (Imitrex) 100 Mg Tab 100 MG PO UD PRN for Migraine, TAB Topiramate (Topamax) 50 Mg Tab 50 MG PO BID TOTAL DOSE: 75MG BID Topiramate (Topamax ) 25 Mg Tab 25 MG PO BID TOTAL DOSE: 75MG BID Triamcinolone Acetonide (Nasal (Nasacort Allergy 24Hr) 55 Mcg/Act Spr 1 SPRAY ABRAHAN DAILY Vitamin A (Gnp Vitamin A) 8,000 Unit Cap 8000 UNITS PO DAILY Zinc Gluconate (Zinc) 50 Mg Tab 50 MG PO BID Hospital Course cirrhosis w hepatic encephalopathy -ammonia slowly, but clinically she is basically at baseline (and has been since yesterday) -continue lactulose, follow ammonia periodically -certainly suspect adherence is a major issue - both w lactulose and diet -refer to solids control technician outpt for low protein teaching -stable for home -possible that in addition to above physiologic stress from UTI might have contributed to decompensation, but this seems less likely given lack of sepsis/etc proteus UTI -rocephin inpatient --> cefdinir as outpt seizure disorder -notes that she's tried to have meds reduced but has run into seizures, also had seizures a few times this summer -keep meds at current dosing DVT proph -heparin SQ utilized while here Total Time Spent: Greater than 30 minutes This includes examination of the patient, discharge planning, medication reconciliation, and communication with other providers. Discharge Instructions Please refer to the electronic Patient Visit Report (Discharge Instructions) for additional information. Additional Copies To Olena Little,
[2017-01-16 08:08] LABS: COD UR NEGATIVE NG/ML (CUTOFF=50); HYDROCOD UR NEGATIVE NG/ML (CUTOFF=50); HYDROMOR UR NEGATIVE NG/ML (CUTOFF=50); MORPHINE UR NEGATIVE NG/ML (CUTOFF=50); NORHYDROCODONE CONF UR NEGATIVE NG/ML (CUTOFF=50); OXYMORPH UR 66 NG/ML (CUTOFF=50)
== END 2017-01-15 09:45 | disposition home or self-care (01) ==
LOC: C.EDB 10:42 → C.MS4W 12:08 → ENRESERV 13:40
PROVIDERS: ADMIT Internal Medicine; ATTEND Family Medicine
DX: K72.90 Hepatic failure, unspecified without coma (principal); K74.60 Unspecified cirrhosis of liver; N39.0 Urinary tract infection, site not specified; E11.43 Type 2 diabetes mellitus with diabetic autonomic (poly)neuropathy; K31.84 Gastroparesis; R01.1 Cardiac murmur, unspecified; D46.9 Myelodysplastic syndrome, unspecified; K76.6 Portal hypertension; J45.909 Unspecified asthma, uncomplicated; F45.9 Somatoform disorder, unspecified; F31.9 Bipolar disorder, unspecified; Z79.4 Long term (current) use of insulin; Z79.899 Other long term (current) drug therapy

== ENCOUNTER → 2017-01-16 | Outpatient (CLI) | payer BC, OTHER ==
[~2017-01-16] MED LIST changes: -BUME1TAB PO; -CARB25TA12 PO; +CEFD1CAP14 PO; +CHOL100010 PO
== END | disposition home or self-care (01) ==
LOC: C.LAB 12:26
PROVIDERS: ATTEND Family Medicine
DX: K72.90 Hepatic failure, unspecified without coma (principal)

== ENCOUNTER 2017-01-27 15:16 | Emergency (ER) | payer BC, OTHER ==
[~2017-01-27] VITALS: Ht 165.1 cm; Wt 101.4 kg
[2017-01-27] MEDS ORDERED: PROCHLORPERAZINE 5 MG/ML 2 ML VIAL IV STA (15:32)
--- NOTE | 2017-01-27 16:08 | EMERGENCY ROOM VISIT NOTE ---
History Report prepared by Broderick: Luis Garcia Under the Supervision of: Dr. Hemant Willard D.O. First contact with patient: 15:26 Chief Complaint: OVERDOSE (ACCIDENTAL) Stated Complaint: HYPOGLYCEMIA Nursing Triage Summary: patient had a lot going on this am and thinks she had taken her lantus twice this am 80 units. she isn't sure she took a double dose or not. she states she has only had glucerna to eat today and her sugar was dropping so she drank two orange sodas and called 911 after talking to her sister who said she should come to the ER. sugar on EMS was 154. History of Present Illness The patient is a 51 year old female who presents to the Emergency Room with complaints of constant hypoglycemia occurring earlier today. Nursing staff states that the patient was on her way to [employer] to get injections in her back, and she stopped to get something to eat. However, she got nauseous, and did not eat anything, though she still took her insulin. When she got to [employer] the patient's blood sugar was 39. Afterwards she was given things to eat, and her blood sugar raised to 103. She did not get her injections. The patient additionally states that she has been vomiting. Source of History: patient, nursing staff Onset: earlier today Position: other (global) Quality: other (hypoglycemia) Timing: constant Associated Symptoms: + nausea, + vomiting Review of Systems See HPI for pertinent positives & negatives. A total of 10 systems reviewed and were otherwise negative. 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 (20) Seizure disorder Surgical Problems: (1) H/O nasal septoplasty (2) History of appendectomy (3) History of cholecystectomy (4) History of hysterectomy (5) History of kyphoplasty (6) History of tonsillectomy (7) s/p spinal stimulator placement Family History Depression Hypertension Social History Smoking Status: Former Smoker Alcohol Use: none Drug Use: none Marital Status: Housing Status: lives with significant other Occupation Status: disabled Current/Historical Medications Scheduled Ascorbic Acid (Vitamin C), 1,000 MG PO DAILY Cholecalciferol (Vitamin D), 5,000 UNITS PO DAILY Cranberry (Vaccinium Macrocarp (Cranberry), 1 TAB PO TID Ferrous Sulfate (Ferrous Sulfate), 325 MG PO QPM Fluticasone Propionate (Fluticasone Propionate), 1 SPRAY ABRAHAN DAILY Insulin Glargine (Toujeo Solostar), 38 UNITS SQ QAM Insulin Lispro (Human) (Humalog Kwikpen), UNITS SC UD Lactulose (Lactulose), 20 GM PO BID Lecithin (Cvs Lecithin), 1 CAP PO DAILY Levetiracetam (Levetiracetam), 2,000 MG PO BID Levothyroxine Sodium (Levothyroxine Sodium), 75 MCG PO QAM Lutein-Zeaxanthin (Lutein), 1 CAP PO DAILY Magnesium Oxide (Mag-Ox), 400 MG PO TID Mirtazapine (Mirtazapine), 30 MG PO HS Multivitamin (Multivitamin), 1 TAB PO DAILY Omeprazole (Prilosec), 20 MG PO QAM Ondasetron Odt (Zofran Odt), 4 MG SL Q6H Oxcarbazepine (Trileptal), 600 MG PO BID Probiotic Product (Probiotic), 1 CAP PO DAILY Ranitidine HCl (Ranitidine HCl), 150 MG PO BID Rifaximin (Xifaxan), 550 MG PO BID Spironolactone (Aldactone), 25 MG PO QAM Topiramate (Topamax), 50 MG PO BID Topiramate (Topamax ), 25 MG PO BID Triamcinolone Acetonide (Nasal (Nasacort Allergy 24Hr), 1 SPRAY ABRAHAN DAILY Vitamin A (Gnp Vitamin A), 8,000 UNITS PO DAILY Zinc Gluconate (Zinc), 50 MG PO BID Scheduled PRN Albuterol Hfa (Ventolin Hfa), 2-4 PUFFS INH Q6H PRN for Shortness of Breath Epinephrine (Epipen), 0.3 MG IM UD PRN for ALLERGIC REACTION Glucose-Vitamin C (Glucose), 1 CHW PO UD PRN for Hypoglycemia Naproxen Sodium-Diphenhydramin (Aleve Pm 220-25 mg), 1 TAB PO QPM PRN for Pain Oxycodone Ir (Roxicodone Ir), 5 MG PO Q8 PRN for Pain Promethazine (Phenergan ), 1 TAB PO BID PRN for Nausea or Vomiting Sumatriptan Succinate (Imitrex), 100 MG PO UD PRN for Migraine Allergies Coded Allergies: Amoxicillin (Verified Allergy, Intermediate, HIVES; Has tolerated cephalosporins (Rocephin, Ceftin,Keflex, 01/13/17) Azithromycin (Verified Allergy, Intermediate, HIVES, 01/13/17) Baclofen (Verified Allergy, Intermediate, RASH, 01/13/17) Butalbital (Verified Allergy, Intermediate, HIVES, 01/13/17) Clarithromycin (Verified Allergy, Intermediate, RASH, 01/13/17) Dicyclomine (Verified Allergy, Intermediate, HIVES, 01/13/17) HIVES Penicillins (Verified Allergy, Intermediate, RASH; has tolerated cephs ( Rocephin, Keflex, Ceftin), 01/13/17) PT STATES SHE GETS WELTS FROM CIPRO,LEVAQUIN ALLERGY PER DR ROBLES Tetracyclines (Verified Allergy, Intermediate, DOXYCYCLINE-HIVES, 01/13/17 ) Sulindac (Verified Allergy, Mild, ALLERGY LISTED "CLONDORAL"--HIVES, ) Adhesives (Verified Allergy, Unknown, RASH, DUODERM=RED,ITCHY, 01/13/17) PLASTIC TAPE IS OK!!! DUODERM=RED,ITCHY Metronidazole (Verified Allergy, Unknown, SEIZURE, 01/13/17) Tramadol (Verified Allergy, Unknown, SEIZURES, 01/13/17) Metoclopramide (Verified Adverse Reaction, Severe, SEIZURES, 01/13/17) Blueberry (Verified Adverse Reaction, Mild, STOMACH PAIN, 01/13/17) Furosemide (Verified Adverse Reaction, Unknown, HIVES, 01/13/17) Physical Exam Vital Signs Date Time Temp Pulse Resp B/P (MAP) Pulse Ox O2 Delivery O2 Flow Rate FiO2 01/27/17 19:30 80 18 127/75 98 Room Air 01/27/17 18:07 80 16 130/71 100 Room Air 01/27/17 17:21 80 18 130/66 100 Room Air 01/27/17 16:17 36.4 73 16 143/71 99 Room Air 01/27/17 16:07 76 Physical Exam GENERAL: Patient is awakens to verbal stimuli EYES: The conjunctivae are clear. The pupils are round and reactive. EARS, NOSE, MOUTH AND THROAT: The nose is without any evidence of any deformity. Mucous membranes are moist tongue is midline NECK: The neck is nontender and supple. RESPIRATORY: Normal respiratory effort is noted there is no evidence of wheezing rhonchi or rales CARDIOVASCULAR: Regular rate and rhythm noted there no murmurs rubs or gallops normal S1 normal S2 GASTROINTESTINAL: The abdomen is soft. Bowel sounds are present in all quadrants. Abdomen is nontender MUSCULOSKELETAL/EXTREMITIES: There is no evidence of gross deformity full range of motion is noted in the hips and shoulders SKIN: There is no obvious evidence of any rash. There are no petechiae, pallor or cyanosis noted. NEUROLOGIC: Patient is oriented to person, place, and situation. Slow to respond. Patellar tendon reflexes are 1+ bilaterally. Medical Decision & Procedures Laboratory Results 01/27/17 16:16 Red Blood Count 2.72, Mean Corpuscular Volume 102.2, Mean Corpuscular Hemoglobin 36.0, Mean Corpuscular Hemoglobin Concent 35.3, Mean Platelet Volume 9.8, Neutrophils (%) (Auto) 74.1, Lymphocytes (%) (Auto) 13.6, Monocytes (%) ( Auto) 9.8, Eosinophils (%) (Auto) 1.9, Basophils (%) (Auto) 0.6, Neutrophils # ( Auto) 2.34, Lymphocytes # (Auto) 0.43, Monocytes # (Auto) 0.31, Eosinophils # ( Auto) 0.06, Basophils # (Auto) 0.02 01/27/17 16:16 Test 01/27/17 16:16 01/27/17 16:35 01/27/17 18:54 White Blood Count 3.16 K/uL (4.8-10.8) Red Blood Count 2.72 M/uL (4.2-5.4) Hemoglobin 9.8 g/dL (12.0-16.0) Hematocrit 27.8 % (37-47) Mean Corpuscular Volume 102.2 fL (80-100) Mean Corpuscular Hemoglobin 36.0 pg (25-34) Mean Corpuscular Hemoglobin Concent 35.3 g/dl (32-36) Platelet Count 80 K/uL (130-400) Mean Platelet Volume 9.8 fL (7.4-10.4) Neutrophils (%) (Auto) 74.1 % Lymphocytes (%) (Auto) 13.6 % Monocytes (%) (Auto) 9.8 % Eosinophils (%) (Auto) 1.9 % Basophils (%) (Auto) 0.6 % Neutrophils # (Auto) 2.34 K/uL (1.4-6.5) Lymphocytes # (Auto) 0.43 K/uL (1.2-3.4) Monocytes # (Auto) 0.31 K/uL (0.11-0.59) Eosinophils # (Auto) 0.06 K/uL (0-0.5) Basophils # (Auto) 0.02 K/uL (0-0.2) RDW Standard Deviation 52.8 fL (36.4-46.3) RDW Coefficient of Variation 14.1 % (11.5-14.5) Immature Granulocyte % (Auto) 0.0 % Immature Granulocyte # (Auto) 0.00 K/uL (0.00-0.02) Platelet Estimate DECREASED Anion Gap 9.0 mmol/L (3-11) Est Creatinine Clear Calc Drug Dose 117.2 ml/min Estimated GFR () 118.0 Estimated GFR (Non- 101.8 BUN/Creatinine Ratio 18.2 (10-20) Calcium Level 7.8 mg/dl (8.5-10.1) Total Bilirubin 1.0 mg/dl (0.2-1) Direct Bilirubin 0.4 mg/dl (0-0.2) Aspartate Amino Transf (AST/SGOT) 48 U/L (15-37) Alanine Aminotransferase (ALT/SGPT) 38 U/L (12-78) Alkaline Phosphatase 256 U/L (45-117) Ammonia 134.0 umol/L (11-32) Total Protein 5.6 gm/dl (6.4-8.2) Albumin 2.9 gm/dl (3.4-5.0) Lipase 94 U/L (73-393) Ethyl Alcohol mg/dL < 3.0 mg/dl (0-3) Urine Color DK YELLOW Urine Appearance CLEAR (CLEAR) Urine pH 7.5 (4.5-7.5) Urine Specific [place] 1.020 (1.000-1.030) Urine Protein NEG (NEG) Urine Glucose (UA) NEG (NEG) Urine Ketones NEG (NEG) Urine Occult Blood NEG (NEG) Urine Nitrite NEG (NEG) Urine Bilirubin NEG (NEG) Urine Urobilinogen NEG (NEG) Urine Leukocyte Esterase TRACE (NEG) Urine WBC (Auto) 1-5 /hpf (0-5) Urine RBC (Auto) 0-4 /hpf (0-4) Urine Hyaline Casts (Auto) 1-5 /lpf (0-5) Urine Epithelial Cells (Auto) 10-20 /lpf (0-5) Urine Bacteria (Auto) NEG (NEG) Bedside Glucose 197 mg/dl (70-90) Laboratory results per my review. Medications Administered Medications (Trade) Dose Ordered Sig/Danita Route Start Time Stop Time Status Last Admin Dose Admin Prochlorperazine Edisylate (Compazine Inj) 10 mg NOW STAT IV 01/27/17 15:32 01/27/17 15:34 DC 01/27/17 16:41 10 MG Lactulose (Chronulac Syrup) 30 gm NOW STAT PO 01/27/17 17:02 01/27/17 17:04 DC 01/27/17 17:23 30 GM ED Course 1526: The patient was evaluated in room A9. A complete history and physical examination were performed. 1532: Compazine 10mg IV 1702: Lactulose 30gm PO 1841: Upon reevaluation, the patient is doing well. I discussed the results and treatment plan with her. She verbalized agreement of the treatment plan. She was discharged home. Medical Decision Differential diagnosis: Etiologies such as metabolic, infection, hypo/hyperglycemia, electrolyte abnormalities, cardiac sources, intracerebral event, toxicologic, neurologic, as well as others were entertained. Nursing notes reviewed. Additional history is obtained from the patient's significant other. The patient is a 51-year-old female who presented to the emergency department for an evaluation of hypoglycemia. The patient was to have a procedure with anesthesia but she was found have hypoglycemia. For this reason she was sent to the emergency department for further evaluation. The patient was significantly improved. She was given medications for nausea and given something to eat. I discussed the patient's laboratory results with her. She does have a history of hepatic and cephalopathy. She was given a dose of her lactulose x-ray in the emergency department. I discussed her follow-up with her and her significant other. She was encouraged to continue all medications as prescribed. She was also encouraged to follow-up with her family doctor soon as possible but return to the emergency department immediately if symptoms change worsen or the need arises. Medication Reconcilliation Current Medication List: was personally reviewed by me Blood Pressure Screening Patient's blood pressure: Normal blood pressure Impression Primary Impression: Hypoglycemia Additional Impressions: Altered mental status Hepatic encephalopathy Scribe Attestation The scribe's documentation has been prepared under my direction and personally reviewed by me in its entirety. I confirm that the note above accurately reflects all work, treatment, procedures, and medical decision making performed by me. Departure Information Dispostion Home / Self-Care Referrals Olena Little DO (PCP) Forms HOME CARE DOCUMENTATION FORM, IMPORTANT VISIT INFORMATION, WORK / SCHOOL INSTRUCTIONS Patient Instructions Hypoglycemia, [facility] Additional Instructions Continue all medications as prescribed. Recheck your blood sugar frequently. Take an extra dose of your lactulose each morning on Friday as well as Friday. Follow-up with your family doctor.. Problem Qualifiers Additional Impressions: Altered mental status Altered mental status type: unspecified Qualified Codes: R41.82 - Altered mental status, unspecified
[2017-01-27 16:17] VITALS: TEMP 36.4; Ht 165.1 cm; Wt 101.4 kg
[2017-01-27 16:33] LABS: HEMATOCRIT 27.8 % (37-47); MEAN CELL VOLUME 102.2 fL (80-100); MEAN CORPUSCULAR HGB CONC 35.3 g/dl (32-36); RED BLOOD COUNT 2.72 M/uL (4.2-5.4); WHITE BLOOD COUNT 3.16 K/uL (4.8-10.8)
[2017-01-27 16:52] LABS: URINE APPEARANCE CLEAR (CLEAR); URINE BILIRUBIN NEG (NEG); URINE COLOR DK YELLOW; URINE NITRITE NEG (NEG); URINE PH 7.5 (4.5-7.5); UROBILINOGEN NEG (NEG)
[2017-01-27 16:54] LABS: MANUAL MICROSCOPIC REQUIRED? NO; REVIEW REQ? NO
[2017-01-27 16:54] LABS: BUN/CREATININE RATIO 18.2 (10-20); CALCIUM 7.8 mg/dl (8.5-10.1); CREATININE 0.67 mg/dl (0.60-1.20); POTASSIUM 4.6 mmol/L (3.5-5.1)
[2017-01-27 16:55] LABS: MEAN PLATELET VOLUME 9.8 fL (7.4-10.4); PLATELET COUNT 80 K/uL (130-400)
[2017-01-27 16:56] LABS: BASO % 0.6 %; BASO ABS # 0.02 K/uL (0-0.2); COMPLETE YES; EOS % 1.9 %; LYMPH % 13.6 %; LYMPH ABS # 0.43 K/uL (1.2-3.4); MONO % 9.8 %; NEUT % 74.1 %; PLT ESTIMATE DECREASED
[2017-01-27] MEDS ORDERED: LACTULOSE SYRUP 20 GM/30 ML UDC PO STA (17:02)
[2017-01-27 19:30] VITALS: BP 127/75; PULSE 80; O2SAT 98
== END 2017-01-27 19:53 | disposition home or self-care (01) ==
LOC: EDBD 15:16 → C.EDA 15:18
DX: E16.2 Hypoglycemia, unspecified (principal); R41.82 Altered mental status, unspecified; K72.90 Hepatic failure, unspecified without coma; J45.909 Unspecified asthma, uncomplicated; K74.60 Unspecified cirrhosis of liver; F31.9 Bipolar disorder, unspecified; E11.9 Type 2 diabetes mellitus without complications; F32.9 Major depressive disorder, single episode, unspecified; E87.0 Hyperosmolality and hypernatremia; I10 Essential (primary) hypertension; R56.9 Unspecified convulsions; Z82.49 Family history of ischemic heart disease and other diseases of the circulatory system; Z87.891 Personal history of nicotine dependence; Z79.4 Long term (current) use of insulin

== ENCOUNTER 2017-02-04 23:05 | Observation (INO) | payer BC, OTHER ==
[~2017-02-04] VITALS: Ht 165.1 cm; Wt 90.0 kg
[~2017-02-04 23:05] MED LIST changes: -CEFD1CAP14 PO
[2017-02-04] MEDS ORDERED: DiphenhydrAMINE HCL 50 MG/ML VIAL IM STA (23:22)
[2017-02-04] MEDS ORDERED: PROCHLORPERAZINE 5 MG/ML 2 ML VIAL IM STA (23:22)
--- NOTE | 2017-02-04 23:38 | EMERGENCY ROOM VISIT NOTE ---
History Report prepared by Broderick: John Marino Under the Supervision of: Dr. Pino Gonzales M.D. First contact with patient: 23:16 Chief Complaint: NAUSEA Stated Complaint: NAUSEA/VOMITING Nursing Triage Summary: Pt arrived via BLS EMS from home for nausea and vomiting. Pt reports nausea x3 days. Using phenergan and compazine at home with some relief. Last dose 1999 today. Reports vomited 6 times today. Last episode betwen [id number] today. Concerned for high ammonia level. hx of seizures, denies any recently. Reports 8/10 pain in stomach. History of Present Illness The patient is a 51 year old female who presents to the Emergency Room via BLS with complaints of nausea that began 3 days ago. Although she has been nauseated for the past couple of days, she only began to vomit today. This occurred after she ate Telugu food this afternoon. She also thinks that her ammonia levels may be high because she claims her is "not giving her her medications." She did not experience any falls or hit her head. The last time she took Compazine or Phenergan was 7 hours ago. She states that she is experiencing mild chest pain, back pain, and abdominal pain. She denies any headache, neck pain, leg swelling, or abnormal urinary symptoms. Source of History: patient Onset: 3 days ago Position: other (GI) Symptom Intensity: moderate Quality: other (Nausea) Timing: constant Associated Symptoms: + chest pain, + vomiting, + abdominal pain, + back pain , No headache, No neck pain, No urinary symptoms Review of Systems See HPI for pertinent positives & negatives. A total of 10 systems reviewed and were otherwise negative. 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 (20) Seizure disorder Surgical Problems: (1) H/O nasal septoplasty (2) History of appendectomy (3) History of cholecystectomy (4) History of hysterectomy (5) History of kyphoplasty (6) History of tonsillectomy (7) s/p spinal stimulator placement Family History Depression Hypertension Social History Smoking Status: Never Smoker Alcohol Use: none Drug Use: none Marital Status: Housing Status: lives with significant other Occupation Status: disabled Current/Historical Medications Scheduled Ascorbic Acid (Vitamin C), 1,000 MG PO DAILY Bumetanide (Bumex), 1 MG PO QAM Cholecalciferol (Vitamin D), 5,000 UNITS PO DAILY Cranberry (Vaccinium Macrocarp (Cranberry Extract), 1 CAP PO DAILY Ferrous Sulfate (Ferrous Sulfate), 325 MG PO QPM Insulin Glargine (Toujeo Solostar), 38 UNITS SQ QAM Insulin Lispro (Human) (Humalog Kwikpen), UNITS SC UD Lactulose (Chronulac), 30 ML PO BID Levetiracetam (Levetiracetam), 2,000 MG PO BID Levothyroxine Sodium (Levothyroxine Sodium), 75 MCG PO QAM Lutein-Zeaxanthin (Lutein), 1 CAP PO DAILY Magnesium Oxide (Mag-Ox), 400 MG PO TID Mirtazapine (Remeron), 30 MG PO HS Omeprazole (Prilosec), 20 MG PO QAM Oxcarbazepine (Trileptal), 300 MG PO QAM Oxcarbazepine (Trileptal), 600 MG PO HS Probiotic Product (Probiotic), 1 CAP PO DAILY Ranitidine HCl (Ranitidine HCl), 150 MG PO BID Rifaximin (Xifaxan), 550 MG PO BID Spironolactone (Aldactone), 25 MG PO QAM Tiotropium [place] (Spiriva Respimat), 2 PUFF INH DAILYBB Topiramate (Topamax), 50 MG PO BID Topiramate (Topamax ), 25 MG PO BID Zinc Gluconate (Zinc), 50 MG PO BID Scheduled PRN Albuterol Hfa (Ventolin Hfa), 2-4 PUFFS INH Q6H PRN for Shortness of Breath Epinephrine (Epipen), 0.3 MG IM UD PRN for ALLERGIC REACTION Ibuprofen Tab (Motrin), 800 MG PO Q4 PRN for Pain Sumatriptan Succinate (Imitrex), 100 MG PO UD PRN for Migraine Allergies Coded Allergies: Amoxicillin (Verified Allergy, Intermediate, HIVES; Has tolerated cephalosporins (Rocephin, Ceftin,Keflex, 02/04/17) Azithromycin (Verified Allergy, Intermediate, HIVES, 02/04/17) Baclofen (Verified Allergy, Intermediate, RASH, 02/04/17) Butalbital (Verified Allergy, Intermediate, HIVES, 02/04/17) Clarithromycin (Verified Allergy, Intermediate, RASH, 02/04/17) Dicyclomine (Verified Allergy, Intermediate, HIVES, 02/04/17) HIVES Penicillins (Verified Allergy, Intermediate, RASH; has tolerated cephs ( Rocephin, Keflex, Ceftin), 02/04/17) PT STATES SHE GETS WELTS FROM CIPRO,LEVAQUIN ALLERGY PER DR ROBLES Tetracyclines (Verified Allergy, Intermediate, DOXYCYCLINE-HIVES, 02/04/17) Sulindac (Verified Allergy, Mild, ALLERGY LISTED "CLONDORAL"--HIVES, ) Adhesives (Verified Allergy, Unknown, RASH, DUODERM=RED,ITCHY, 02/04/17) PLASTIC TAPE IS OK!!! DUODERM=RED,ITCHY Metronidazole (Verified Allergy, Unknown, SEIZURE, 02/04/17) Tramadol (Verified Allergy, Unknown, SEIZURES, 02/04/17) Metoclopramide (Verified Adverse Reaction, Severe, SEIZURES, 02/04/17) Blueberry (Verified Adverse Reaction, Mild, STOMACH PAIN, 02/04/17) Furosemide (Verified Adverse Reaction, Unknown, HIVES, 02/04/17) Physical Exam Vital Signs Date Time Temp Pulse Resp B/P (MAP) Pulse Ox O2 Delivery O2 Flow Rate FiO2 02/05/17 00:40 85 18 98 02/05/17 00:31 119/68 02/05/17 00:10 84 16 97 02/05/17 00:01 123/47 02/04/17 23:41 99 Room Air 02/04/17 23:40 86 18 96 02/04/17 23:35 85 18 97 02/04/17 23:31 127/59 02/04/17 23:14 90 02/04/17 23:11 131/59 11/7/17 23:05 36.9 91 14 131/59 99 Room Air Physical Exam GENERAL: Patient is depressed appearing and in no acute distress. Patient is answering all questions. HEENT: No acute trauma, normocephalic atraumatic, mucous membranes moist, no nasal congestion, no scleral icterus. NECK: No stridor, no adenopathy, no meningismus, trachea is midline. LUNGS: No dyspnea. Clear to auscultation and equal bilaterally. No wheeze, no rhonchi. HEART: Regular rate and rhythm. No murmurs, rubs, gallops appreciated. ABDOMEN: Soft, nontender, bowel sounds positive, no masses appreciated, no peritonitis. BACK: No midline tenderness, no CVA tenderness EXTREMITIES: Normal motion all extremities, no cyanosis, no edema. NEUROLOGIC: Alert and oriented, no acute motor or sensory deficits, no focal weakness, cranial nerves grossly intact. SKIN: No rash, no jaundice, no diaphoresis. Medical Decision & Procedures Laboratory Results 02/04/17 23:41 Red Blood Count 3.09, Mean Corpuscular Volume 100.6, Mean Corpuscular Hemoglobin 34.6, Mean Corpuscular Hemoglobin Concent 34.4, Mean Platelet Volume 10.0, Neutrophils (%) (Auto) 50.2, Lymphocytes (%) (Auto) 33.3, Monocytes (%) ( Auto) 10.0, Eosinophils (%) (Auto) 5.2, Basophils (%) (Auto) 1.1, Neutrophils # (Auto) 2.22, Lymphocytes # (Auto) 1.47, Monocytes # (Auto) 0.44, Eosinophils # ( Auto) 0.23, Basophils # (Auto) 0.05 02/04/17 23:41 Test 02/04/17 23:41 White Blood Count 4.42 K/uL (4.8-10.8) Red Blood Count 3.09 M/uL (4.2-5.4) Hemoglobin 10.7 g/dL (12.0-16.0) Hematocrit 31.1 % (37-47) Mean Corpuscular Volume 100.6 fL (80-100) Mean Corpuscular Hemoglobin 34.6 pg (25-34) Mean Corpuscular Hemoglobin Concent 34.4 g/dl (32-36) Platelet Count 112 K/uL (130-400) Mean Platelet Volume 10.0 fL (7.4-10.4) Neutrophils (%) (Auto) 50.2 % Lymphocytes (%) (Auto) 33.3 % Monocytes (%) (Auto) 10.0 % Eosinophils (%) (Auto) 5.2 % Basophils (%) (Auto) 1.1 % Neutrophils # (Auto) 2.22 K/uL (1.4-6.5) Lymphocytes # (Auto) 1.47 K/uL (1.2-3.4) Monocytes # (Auto) 0.44 K/uL (0.11-0.59) Eosinophils # (Auto) 0.23 K/uL (0-0.5) Basophils # (Auto) 0.05 K/uL (0-0.2) RDW Standard Deviation 46.6 fL (36.4-46.3) RDW Coefficient of Variation 12.9 % (11.5-14.5) Immature Granulocyte % (Auto) 0.2 % Immature Granulocyte # (Auto) 0.01 K/uL (0.00-0.02) Anion Gap 9.0 mmol/L (3-11) Est Creatinine Clear Calc Drug Dose 108.5 ml/min Estimated GFR () 117.4 Estimated GFR (Non- 101.3 BUN/Creatinine Ratio 34.0 (10-20) Calcium Level 8.3 mg/dl (8.5-10.1) Total Bilirubin 1.5 mg/dl (0.2-1) Direct Bilirubin 0.6 mg/dl (0-0.2) Aspartate Amino Transf (AST/SGOT) 72 U/L (15-37) Alanine Aminotransferase (ALT/SGPT) 63 U/L (12-78) Alkaline Phosphatase 292 U/L (45-117) Ammonia 223.0 umol/L (11-32) Total Protein 6.5 gm/dl (6.4-8.2) Albumin 3.3 gm/dl (3.4-5.0) Lipase 104 U/L (73-393) Medications Administered Medications (Trade) Dose Ordered Sig/Danita Route Start Time Stop Time Status Last Admin Dose Admin Prochlorperazine Edisylate (Compazine Inj) 5 mg NOW STAT IM 02/04/17 23:22 02/04/17 23:24 DC 02/04/17 23:31 5 MG Diphenhydramine HCl (Benadryl Inj) 25 mg NOW STAT IM 02/04/17 23:22 02/04/17 23:24 DC 02/04/17 23:31 25 MG Lactulose (Chronulac Syrup) 30 gm NOW STAT PO 02/05/17 00:49 02/05/17 01:18 DC 02/05/17 01:24 30 GM ED Course 2316: The patient was evaluated in room B9. A complete history and physical exam was performed. Medical Decision Differential: Sepsis, Infectious (UTI/Pneumonia/Meningitis/etc), Metabolic/ Electrolyte Abnormality, Cardiac, Hepatic, Endocrine, Toxicologic, Neurologic, amongst other pathologies entertained. 51 yr old female arrives for evaluation of vomiting. She has long history with this facility. She states she keeps vomiting, though admits she was eating mohawk food today, then vomiting. Also notes that her won't give her her lactulose. She does not appear encephalopathic. She was given Compazine/ Benadryl. Ammonia is elevated but she in no way exhibits encephalopathy, is able to answer all questions and knows her history quite well. She continues to complaint of nausea though no further vomiting. She is stable, breathing comfortably and abdominal exam is benign. Given persistent nausea I requested hospitalist to evaluate her as she is likely just to go home and not be take her lactulose. I suspect there may be element of her non-compliance factoring in to this. Medication Reconcilliation Current Medication List: was personally reviewed by me Impression Primary Impression: Persistent vomiting Additional Impression: Hyperammonemia Scribe Attestation The scribe's documentation has been prepared under my direction and personally reviewed by me in its entirety. I confirm that the note above accurately reflects all work, treatment, procedures, and medical decision making performed by me. Departure Information Referrals Olena Little DO (PCP) Patient Instructions [facility] Problem Qualifiers
[2017-02-04 23:52] LABS: BASO % 1.1 %; BASO ABS # 0.05 K/uL (0-0.2); COMPLETE YES; EOS % 5.2 %; HEMATOCRIT 31.1 % (37-47); IG% 0.2 %; LYMPH % 33.3 %; LYMPH ABS # 1.47 K/uL (1.2-3.4); MEAN CELL VOLUME 100.6 fL (80-100); MEAN CORPUSCULAR HEMOGLOBIN 34.6 pg (25-34); MEAN CORPUSCULAR HGB CONC 34.4 g/dl (32-36); NEUT % 50.2 %; PLATELET COUNT 112 K/uL (130-400); RED BLOOD COUNT 3.09 M/uL (4.2-5.4); WHITE BLOOD COUNT 4.42 K/uL (4.8-10.8)
[2017-02-05] VITALS (7 sets, daily range): BP systolic 119–159; BP diastolic 71–89; PULSE 77–90; TEMP 36.1–36.6; O2SAT 95–99; Ht 165.1 cm; Wt 90.0 kg
[2017-02-05] MEDS ORDERED: BUME1TAB PO
[2017-02-05] MEDS ORDERED: MIRT30TA3 PO (00:03)
[2017-02-05] MEDS ORDERED: CRAN200C PO (00:11)
[2017-02-05 00:13] LABS: CALCIUM 8.3 mg/dl (8.5-10.1); CREATININE 0.68 mg/dl (0.60-1.20); POTASSIUM 3.6 mmol/L (3.5-5.1)
[2017-02-05] MEDS ORDERED: IBUP-1451 PO (00:13)
[2017-02-05] MEDS ORDERED: LACT10SO17 PO (00:14)
[2017-02-05] MEDS ORDERED: OXCA300T PO ×2 (00:15)
[2017-02-05] MEDS ORDERED: TIOT1SPR INH (00:16)
[2017-02-05] MEDS ORDERED: LACTULOSE SYRUP 20 GM/30 ML UDC PO STA (00:49)
[2017-02-05] MEDS ORDERED: ALUMINUM/MAGNESIUM/SIMETH (MAALOX MAX) 30 ML UDC PO PRN (01:00)
[2017-02-05] MEDS ORDERED: MAGNESIUM HYDROXIDE SUSP 30 ML UDC PO PRN (01:00)
[2017-02-05] MEDS ORDERED: POLYETHYLENE (MIRALAX) 17 GM PACK PO PRN (01:00)
[2017-02-05] MEDS ORDERED: ALBUTEROL HFA 8 GM INHALER INH PRN (01:00)
[2017-02-05] MEDS ORDERED: SUMATRIPTAN SUCC TAB 100 MG TAB PO PRN (01:00)
--- NOTE | 2017-02-05 01:43 | History and Physical ---
History & Physical Date & Time of Service: Feb 05, 2017 at 01:25 Chief Complaint: Nausea/Vomiting Primary Care Physician: Olena Little DO History of Present Illness Source: patient 51 y/o F Hx Cirrhosis, bipolar disease, type II DM, MDS with pancytopenia, seizures, asthma, hypothyroidism. Frequently attends the hospital due to encephalopathy. She presents with persistent nausea, vomiting and reported confusion although she is able to provide a clear history. She states she believes her ammonia level is high and that this is due to her not giving her enough of her lactulose. The pt may not be a reliable historian as she tends to confirm every item on a review of systems checklist including pain in her head, abdomen and chest. Initial labs confirm a high ammonia level. She does not exhibit any concomitant encephalopathy. Past Medical/Surgical History Medical Problems: (1) Asthma Status: Chronic (2) Bipol I, Rec Epis (Or Current) Depressed, Unspecified Status: Chronic (3) Cirrhosis Permanent Comment: from nonalcoholic fatty liver disease Status: Chronic (4) Diab Ashley Wo Comp Type Ii Or Nos/Not Uncontrolled Status: Chronic (5) Diabetes Status: Chronic (6) Diabetic gastroparesis Status: Chronic (7) Heart murmur Status: Chronic (8) History of hepatic encephalopathy Status: Chronic (9) Major depressive disorder with psychotic features Permanent Comment: with previous suicide attempts Status: Chronic (10) Migraines Status: Chronic (11) Myelodysplastic syndrome Status: Chronic (12) Pancytopenia Status: Chronic (13) Peptic ulcer disease Status: Chronic (14) Portal Hypertension Status: Chronic (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 Status: Chronic (16) Seizure disorder Permanent Comment: with pseudoseizures Status: Chronic Surgical Problems: (1) H/O nasal septoplasty Status: Chronic (2) History of appendectomy Status: Chronic (3) History of cholecystectomy Status: Chronic (4) History of hysterectomy Status: Chronic (5) History of kyphoplasty Permanent Comment: lumbar Status: Chronic (6) History of tonsillectomy Status: Chronic (7) s/p spinal stimulator placement Status: Chronic Family History Depression Hypertension Social History Smoking Status: Never Smoker Drug Use: none Marital Status: Housing status: lives with family Occupational Status: disabled Immunizations History of Influenza Vaccine: Yes Influenza Vaccine Date: Feb 02, 2013 History of Tetanus Vaccine?: utd Tetanus Immunization Date: Jun 11, 2008 History of Pneumococcal: SEE LAST PACKET Pneumococcal Date: Nov 13, 2008 History of Hepatitis B Vaccine: Unknown Hepatitis Immunization Date: Jan 12, 1996 Multi-Drug Resistant Organisms History of MDRO: No Allergies Coded Allergies: Amoxicillin (Verified Allergy, Intermediate, HIVES; Has tolerated cephalosporins (Rocephin, Ceftin,Keflex, 02/04/17) Azithromycin (Verified Allergy, Intermediate, HIVES, 02/04/17) Baclofen (Verified Allergy, Intermediate, RASH, 02/04/17) Butalbital (Verified Allergy, Intermediate, HIVES, 02/04/17) Clarithromycin (Verified Allergy, Intermediate, RASH, 02/04/17) Dicyclomine (Verified Allergy, Intermediate, HIVES, 02/04/17) HIVES Penicillins (Verified Allergy, Intermediate, RASH; has tolerated cephs ( Rocephin, Keflex, Ceftin), 02/04/17) PT STATES SHE GETS WELTS FROM CIPRO,LEVAQUIN ALLERGY PER DR ROBLES Tetracyclines (Verified Allergy, Intermediate, DOXYCYCLINE-HIVES, 02/04/17) Sulindac (Verified Allergy, Mild, ALLERGY LISTED "CLONDORAL"--HIVES, ) Adhesives (Verified Allergy, Unknown, RASH, DUODERM=RED,ITCHY, 02/04/17) PLASTIC TAPE IS OK!!! DUODERM=RED,ITCHY Metronidazole (Verified Allergy, Unknown, SEIZURE, 02/04/17) Tramadol (Verified Allergy, Unknown, SEIZURES, 02/04/17) Metoclopramide (Verified Adverse Reaction, Severe, SEIZURES, 02/04/17) Blueberry (Verified Adverse Reaction, Mild, STOMACH PAIN, 02/04/17) Furosemide (Verified Adverse Reaction, Unknown, HIVES, 02/04/17) Home Medications Scheduled Ascorbic Acid (Vitamin C), 1,000 MG PO DAILY Bumetanide (Bumex), 1 MG PO QAM Cholecalciferol (Vitamin D), 5,000 UNITS PO DAILY Cranberry (Vaccinium Macrocarp (Cranberry Extract), 1 CAP PO DAILY Ferrous Sulfate (Ferrous Sulfate), 325 MG PO QPM Insulin Glargine (Toujeo Solostar), 38 UNITS SQ QAM Insulin Lispro (Human) (Humalog Kwikpen), UNITS SC UD Lactulose (Chronulac), 30 ML PO BID Levetiracetam (Levetiracetam), 2,000 MG PO BID Levothyroxine Sodium (Levothyroxine Sodium), 75 MCG PO QAM Lutein-Zeaxanthin (Lutein), 1 CAP PO DAILY Magnesium Oxide (Mag-Ox), 400 MG PO TID Mirtazapine (Remeron), 30 MG PO HS Omeprazole (Prilosec), 20 MG PO QAM Oxcarbazepine (Trileptal), 300 MG PO QAM Oxcarbazepine (Trileptal), 600 MG PO HS Probiotic Product (Probiotic), 1 CAP PO DAILY Ranitidine HCl (Ranitidine HCl), 150 MG PO BID Rifaximin (Xifaxan), 550 MG PO BID Spironolactone (Aldactone), 25 MG PO QAM Tiotropium [place] (Spiriva Respimat), 2 PUFF INH DAILYBB Topiramate (Topamax), 50 MG PO BID Topiramate (Topamax ), 25 MG PO BID Zinc Gluconate (Zinc), 50 MG PO BID Scheduled PRN Albuterol Hfa (Ventolin Hfa), 2-4 PUFFS INH Q6H PRN for Shortness of Breath Epinephrine (Epipen), 0.3 MG IM UD PRN for ALLERGIC REACTION Ibuprofen Tab (Motrin), 800 MG PO Q4 PRN for Pain Sumatriptan Succinate (Imitrex), 100 MG PO UD PRN for Migraine Review of Systems Constitutional: No fever, No chills, No sweats Eyes: No worsening of vision ENT: No hearing loss Respiratory: No cough, No sputum, No wheezing Cardiovascular: + chest pain (chronic bilateral) Abdomen: + pain, + nausea, + vomiting Musculoskeletal: + joint pain (chronic back and joint pain) Neurologic: + weakness Psychiatric: + depression symptoms Endocrine: + fatigue Hematologic / Lymphatic: No abnormal bleeding/bruising Integumentary: No rash Allergic / Immunologic: No environmental allergies Physical Exam Vital Signs Date Time Temp Pulse Resp B/P (MAP) Pulse Ox O2 Delivery O2 Flow Rate FiO2 02/04/17 23:41 99 Room Air 02/04/17 23:35 85 18 97 02/04/17 23:31 127/59 02/04/17 23:14 90 02/04/17 23:11 131/59 02/04/17 23:05 36.9 91 14 131/59 99 Room Air General Appearance: WD/WN, no apparent distress, + obese Head: normocephalic Eyes: + pertinent finding (periorbiyal hyperpigmentation) ENT: normal ENT inspection, pharynx normal Neck: supple, no JVD Respiratory/Chest: chest non-tender, lungs clear, normal breath sounds Cardiovascular: regular rate, rhythm, no edema, no gallop, no JVD, no murmur, normal peripheral pulses Abdomen/GI: normal bowel sounds, non tender, soft Back: normal inspection, no CVA tenderness, no muscle spasm, normal range of motion Extremities/Musculoskelatal: normal inspection, no calf tenderness, normal capillary refill, no pedal edema, normal range of motion Neurologic/Psych: dental manager II-XII nml as tested, no motor/sensory deficits, alert, oriented x 3 Skin: normal color, warm/dry, no rash Diagnostics Laboratory Results Results Past 24 Hours Test 02/04/17 23:41 Range/Units White Blood Count 4.42 4.8-10.8 K/uL Red Blood Count 3.09 4.2-5.4 M/uL Hemoglobin 10.7 12.0-16.0 g/dL Hematocrit 31.1 37-47 % Mean Corpuscular Volume 100.6 80-100 fL Mean Corpuscular Hemoglobin 34.6 25-34 pg Mean Corpuscular Hemoglobin Concent 34.4 32-36 g/dl Platelet Count 112 130-400 K/uL Mean Platelet Volume 10.0 7.4-10.4 fL Neutrophils (%) (Auto) 50.2 % Lymphocytes (%) (Auto) 33.3 % Monocytes (%) (Auto) 10.0 % Eosinophils (%) (Auto) 5.2 % Basophils (%) (Auto) 1.1 % Neutrophils # (Auto) 2.22 1.4-6.5 K/uL Lymphocytes # (Auto) 1.47 1.2-3.4 K/uL Monocytes # (Auto) 0.44 0.11-0.59 K/uL Eosinophils # (Auto) 0.23 0-0.5 K/uL Basophils # (Auto) 0.05 0-0.2 K/uL RDW Standard Deviation 46.6 36.4-46.3 fL RDW Coefficient of Variation 12.9 11.5-14.5 % Immature Granulocyte % (Auto) 0.2 % Immature Granulocyte # (Auto) 0.01 0.00-0.02 K/uL Sodium Level 141 136-145 mmol/L Potassium Level 3.6 3.5-5.1 mmol/L Chloride Level 106 98-107 mmol/L Carbon Dioxide Level 26 21-32 mmol/L Anion Gap 9.0 3-11 mmol/L Blood Urea Nitrogen 23 7-18 mg/dl Creatinine 0.68 0.60-1.20 mg/dl Est Creatinine Clear Calc Drug Dose 108.5 ml/min Estimated GFR () 117.4 Estimated GFR (Non- 101.3 BUN/Creatinine Ratio 34.0 10-20 Random Glucose 119 70-99 mg/dl Calcium Level 8.3 8.5-10.1 mg/dl Total Bilirubin 1.5 0.2-1 mg/dl Direct Bilirubin 0.6 0-0.2 mg/dl Aspartate Amino Transf (AST/SGOT) 72 15-37 U/L Alanine Aminotransferase (ALT/SGPT) 63 12-78 U/L Alkaline Phosphatase 292 45-117 U/L Ammonia 223.0 11-32 umol/L Total Protein 6.5 6.4-8.2 gm/dl Albumin 3.3 3.4-5.0 gm/dl Lipase 104 73-393 U/L Impression Assessment and Plan 51 y/o F Hx Cirrhosis, bipolar disease, type II DM, MDS with pancytopenia, seizures, asthma, hypothyroidism. Frequently attends the hospital due to encephalopathy. She presents with persistent nausea, vomiting and reported confusion although she is able to provide a clear history. She states she believes her ammonia level is high and that this is due to her not giving her enough of her lactulose. The pt may not be a reliable historian as she tends to confirm every item on a review of systems checklist including pain in her head, abdomen and chest. Initial labs confirm a high ammonia level. She does not exhibit any concomitant encephalopathy. 1) Cirrhosis and encephalopathy - encephalopathy is largely subjective at present despite a high ammonia level. We will increase her Lactulose and continue Xifaxin. LFTs will be trended AM. Cont Bumex/Aldactone 2) Nausea and vomiting - resolved - abdominal pain is benign - antiemetics provided as needed - clear liquid diet - advance AM pending reevaluation 3) DM - placed on SS 4) Pancytopenia - stable - f/u as outpt 5) Seizures - cont Keppra, Trileptal 6) Hypothyroidism - cont Synthroid Full code - SCDs Total time for this admit including review of labs, meds, records - discussion with pt and ER attending - 36 min Level of Care Med/Surg Resuscitation Status FULL RESUSCITATION VTE Prophylaxis VTE Risk Assessment Done? Y/N: Yes Risk Level: Low
[2017-02-05] MEDS ORDERED: IV FLUIDS COMPLETED PRN (03:30)
[2017-02-05] MEDS: LEVOTHYROXINE 75 MCG TAB PO SCH (05:57)
[2017-02-05] MEDS: SPIRONOLACTONE 25 MG TAB PO SCH (07:46)
[2017-02-05] MEDS: LEVETIRACETAM 500 MG TAB PO SCH ×2 (07:47→21:51)
[2017-02-05] MEDS: LACTULOSE SYRUP 20 GM/30 ML UDC PO SCH ×3 (07:47→21:00)
[2017-02-05] MEDS: BUMETANIDE 1 MG TAB PO SCH (07:47)
[2017-02-05] MEDS: PANTOprazole SOD 40 MG TAB PO SCH (07:48)
[2017-02-05] MEDS: TOPIRAMATE 25 MG TAB PO SCH ×2 (07:48→21:53)
[2017-02-05] MEDS: MAGNESIUM OXIDE 400 MG TAB PO SCH ×3 (07:48→21:52)
[2017-02-05] MEDS: RIFAXIMIN TAB 550 MG TAB PO SCH ×2 (07:49→21:55)
[2017-02-05] MEDS: OXCARBAZEPINE 150 MG TAB PO SCH ×2 (07:49→21:54)
[2017-02-05] MEDS: RANITIDINE HCL 150 MG TAB PO SCH ×2 (07:50→21:55)
[2017-02-05] MEDS: INSULIN ASPART 100 UNITS/ML 3 ML PEN SC SCH ×4 (07:53→21:49)
[2017-02-05] MEDS ORDERED: TOPIRAMATE 25 MG TAB PO SCH ×2 (09:00)
[2017-02-05 09:33] LABS: HEMATOCRIT 29.7 % (37-47); MEAN CELL VOLUME 102.1 fL (80-100); MEAN CORPUSCULAR HEMOGLOBIN 36.4 pg (25-34); MEAN CORPUSCULAR HGB CONC 35.7 g/dl (32-36); MEAN PLATELET VOLUME 10.1 fL (7.4-10.4); PLATELET COUNT 105 K/uL (130-400); RED BLOOD COUNT 2.91 M/uL (4.2-5.4); WHITE BLOOD COUNT 4.58 K/uL (4.8-10.8)
[2017-02-05 09:54] LABS: BUN/CREATININE RATIO 23.8 (10-20); CREATININE 0.85 mg/dl (0.60-1.20); POTASSIUM 3.4 mmol/L (3.5-5.1)
[2017-02-05] MEDS ORDERED: NALOXONE HCL 0.4 MG/1 ML VIAL/CARP IV STA (10:02)
[2017-02-05] MEDS ORDERED: NALOXONE HCL 0.4 MG/1 ML VIAL/CARP ONE (10:05)
[2017-02-05] MEDS: ONDANSETRON INJ 2 MG/ML 2 ML VIAL IV PRN (15:18)
--- NOTE | 2017-02-05 18:55 | Progress Note ---
Subjective Date of Service: Feb 05, 2017. Subjective was called urgently by nursing due to unresponsive state this am. nursing states pt was awake ate breakfast, took lactulose and had visit. she then became markedly lethargic and difficult to awaken, no meds that could be implicated were given, and no one saw patent take any mediation from home. Given my past interaction with the pt I ordered narcan 0.4 mg iv stat, after dose she immediately improved Problem List Medical Problems: (1) Acute bronchitis Status: Acute (2) Acute hepatic encephalopathy Status: Acute (3) Alkaline phosphatase elevation Status: Acute (4) Back pain Status: Acute (5) Bradycardia Status: Acute (6) Breakthrough seizure Status: Acute (7) Burn Status: Acute (8) Change in mental status Status: Acute (9) Change in mental status Status: Acute (10) Change in mental status Status: Acute (11) Change in mental status Status: Acute (12) Chronic low back pain Status: Acute (13) Closed head injury Status: Acute (14) Dehydration Status: Acute (15) Dizziness Status: Acute (16) Facial laceration Status: Acute (17) Fall Status: Acute (18) Fall Status: Acute (19) Fall Status: Acute (20) Fatigue Status: Acute (21) Hemorrhoid Status: Acute (22) Hepatic encephalopathy Status: Acute (23) Hepatic encephalopathy Status: Acute (24) Hepatic encephalopathy Status: Acute (25) Hepatic encephalopathy Status: Acute (26) Hepatic encephalopathy Status: Acute (27) Hepatic encephalopathy Status: Acute (28) Hepatic encephalopathy Status: Acute (29) Hepatic encephalopathy Status: Acute (30) Hepatic encephalopathy Status: Acute (31) Hepatic encephalopathy Status: Acute (32) Hepatic encephalopathy Status: Acute (33) Hepatic encephalopathy Status: Acute (34) Hyperammonemia Status: Acute (35) Hyperammonemia Status: Acute (36) Hyperammonemia Status: Acute (37) Hyperammonemia Status: Acute (38) Hyperammonemia Status: Acute (39) Hypocalcemia Status: Acute (40) Hypocalcemia Status: Acute (41) Hypokalemia Status: Acute (42) Hypomagnesemia Status: Acute (43) Increased ammonia level Status: Acute (44) Left foot pain Status: Acute (45) Left shoulder pain Status: Acute (46) Leukopenia Status: Acute (47) Low back pain Status: Acute (48) Migraine Status: Acute (49) Nausea & vomiting Status: Acute (50) Noncompliance with medication regimen Status: Acute (51) Pain in pelvis Status: Acute (52) Pancytopenia Status: Acute (53) Persistent vomiting Status: Acute (54) Post-operative pain Status: Acute (55) Right ear pain Status: Acute (56) Right groin pain Status: Acute (57) Right hip pain Status: Acute (58) Right upper lobe pneumonia Status: Acute (59) RUQ abdominal pain Status: Acute (60) Sepsis Status: Acute (61) Vomiting Status: Acute (62) Weakness Status: Acute (63) Weakness Status: Acute (64) Weakness Status: Acute (65) Weakness Status: Acute Review of Systems Constitutional: + weakness, + fatigue Respiratory: No cough, No shortness of breath, No dyspnea on exertion Cardiac: No chest pain, No orthopnea, No PND, No edema Abdomen: + diarrhea, No pain, No nausea, No vomiting, No constipation Musculoskeletal: No joint pain, No muscle pain Psychiatric: No depression symptoms, No anhedonism, No anxiety Endo: + fatigue Objective Vital Signs Date Time Temp Pulse Resp B/P (MAP) Pulse Ox O2 Delivery O2 Flow Rate FiO2 02/05/17 15:30 95 Room Air 02/05/17 15:25 36.4 83 18 159/89 (112) 95 Room Air 02/05/17 11:30 36.1 90 20 159/86 (110) 99 Room Air 02/05/17 08:58 97 Room Air 02/05/17 07:37 36.4 85 14 126/76 (93) 97 Room Air 02/05/17 07:30 Room Air 02/05/17 02:55 36.6 87 16 139/82 Room Air 96.0 02/05/17 02:55 Room Air 02/05/17 02:31 125/69 02/05/17 02:20 88 18 96 02/05/17 01:50 86 17 99 02/05/17 01:45 86 17 99 02/05/17 01:31 137/52 02/05/17 01:15 87 18 99 02/05/17 01:01 127/56 02/05/17 00:45 88 18 99 02/05/17 00:40 85 18 98 02/05/17 00:31 119/68 02/05/17 00:10 84 16 97 02/05/17 00:01 123/47 02/04/17 23:41 99 Room Air 02/04/17 23:40 86 18 96 02/04/17 23:35 85 18 97 02/04/17 23:31 127/59 02/04/17 23:14 90 02/04/17 23:11 131/59 02/04/17 23:05 36.9 91 14 131/59 99 Room Air Physical Exam General Appearance: WD/WN, + mild distress Eyes: PERRL, EOMI Respiratory/Chest: chest non-tender, lungs clear, normal breath sounds Cardiovascular: regular rate, rhythm, no murmur Abdomen: normal bowel sounds, non tender, soft Extremities: no pedal edema, no calf tenderness Neurologic/Psychiatric: alert, oriented x 3 Laboratory Results Last 24 Hours Test 02/04/17 23:41 02/05/17 07:52 02/05/17 09:11 02/05/17 10:56 White Blood Count 4.42 K/uL 4.58 K/uL Red Blood Count 3.09 M/uL 2.91 M/uL Hemoglobin 10.7 g/dL 10.6 g/dL Hematocrit 31.1 % 29.7 % Mean Corpuscular Volume 100.6 fL 102.1 fL Mean Corpuscular Hemoglobin 34.6 pg 36.4 pg Mean Corpuscular Hemoglobin Concent 34.4 g/dl 35.7 g/dl Platelet Count 112 K/uL 105 K/uL Mean Platelet Volume 10.0 fL 10.1 fL Neutrophils (%) (Auto) 50.2 % Lymphocytes (%) (Auto) 33.3 % Monocytes (%) (Auto) 10.0 % Eosinophils (%) (Auto) 5.2 % Basophils (%) (Auto) 1.1 % Neutrophils # (Auto) 2.22 K/uL Lymphocytes # (Auto) 1.47 K/uL Monocytes # (Auto) 0.44 K/uL Eosinophils # (Auto) 0.23 K/uL Basophils # (Auto) 0.05 K/uL RDW Standard Deviation 46.6 fL 49.0 fL RDW Coefficient of Variation 12.9 % 13.2 % Immature Granulocyte % (Auto) 0.2 % Immature Granulocyte # (Auto) 0.01 K/uL Sodium Level 141 mmol/L 138 mmol/L Potassium Level 3.6 mmol/L 3.4 mmol/L Chloride Level 106 mmol/L 103 mmol/L Carbon Dioxide Level 26 mmol/L 26 mmol/L Anion Gap 9.0 mmol/L 9.0 mmol/L Blood Urea Nitrogen 23 mg/dl 20 mg/dl Creatinine 0.68 mg/dl 0.85 mg/dl Est Creatinine Clear Calc Drug Dose 108.5 ml/min 86.8 ml/min Estimated GFR () 117.4 92.0 Estimated GFR (Non- 101.3 79.3 BUN/Creatinine Ratio 34.0 23.8 Random Glucose 119 mg/dl 271 mg/dl Calcium Level 8.3 mg/dl 8.0 mg/dl Total Bilirubin 1.5 mg/dl 1.5 mg/dl Direct Bilirubin 0.6 mg/dl 0.5 mg/dl Aspartate Amino Transf (AST/SGOT) 72 U/L 66 U/L Alanine Aminotransferase (ALT/SGPT) 63 U/L 61 U/L Alkaline Phosphatase 292 U/L 281 U/L Ammonia 223.0 umol/L 65.0 umol/L Total Protein 6.5 gm/dl 6.2 gm/dl Albumin 3.3 gm/dl 3.2 gm/dl Lipase 104 U/L Bedside Glucose 153 mg/dl Magnesium Level 2.0 mg/dl Test 02/05/17 11:51 02/05/17 17:23 Bedside Glucose 234 mg/dl 201 mg/dl Assessment and Plan 51 y/o F Hx Cirrhosis, bipolar disease, type II DM, MDS with pancytopenia, seizures, asthma, hypothyroidism. Frequently attends the hospital due to encephalopathy. She presented with persistent nausea, vomiting and confusion Initial labs confirm a high ammonia level. She does not exhibit any concomitant encephalopathy. Cirrhosis and encephalopathy - encephalopathy ammonia markedly reduced with increased Lactulose and continued Xifaxin. . Cont Bumex/Aldactone to help control ascites Nausea and vomiting - resolved DM - placed on SS, resume tajeo once taking po Pancytopenia - stable - f/u blood work this is secondary to liver disease and medication Seizures - remain stable , cont Keppra, Trileptal Hypothyroidism - cont Synthroid Full code - SCDs
[2017-02-05] MEDS: FERROUS SULFATE 325 MG TAB PO SCH (21:50)
[2017-02-05] MEDS: MIRTAZAPINE TAB 15 MG TAB PO SCH (21:52)
[2017-02-06] MEDS: LEVOTHYROXINE 75 MCG TAB PO SCH (05:43)
[2017-02-06 06:51] VITALS: BP 128/68; PULSE 87; TEMP 36.4; O2SAT 97
[2017-02-06] MEDS: LACTULOSE SYRUP 20 GM/30 ML UDC PO SCH ×3 (08:20→21:02)
[2017-02-06] MEDS: BUMETANIDE 1 MG TAB PO SCH (08:22)
[2017-02-06] MEDS: SPIRONOLACTONE 25 MG TAB PO SCH (08:22)
[2017-02-06] MEDS: LEVETIRACETAM 500 MG TAB PO SCH ×2 (08:23→21:03)
[2017-02-06] MEDS: MAGNESIUM OXIDE 400 MG TAB PO SCH ×3 (08:23→21:03)
[2017-02-06] MEDS: PANTOprazole SOD 40 MG TAB PO SCH (08:24)
[2017-02-06] MEDS: TOPIRAMATE 25 MG TAB PO SCH ×2 (08:24→21:03)
[2017-02-06] MEDS: RIFAXIMIN TAB 550 MG TAB PO SCH ×2 (08:24→21:03)
[2017-02-06] MEDS: RANITIDINE HCL 150 MG TAB PO SCH ×2 (08:24→21:03)
[2017-02-06] MEDS: OXCARBAZEPINE 150 MG TAB PO SCH ×2 (08:24→21:03)
[2017-02-06] MEDS: INSULIN GLARGINE 300 UNITS/ML INJ SC SCH (08:29)
[2017-02-06] MEDS: INSULIN ASPART 100 UNITS/ML 3 ML PEN SC SCH ×4 (08:30→21:05)
[2017-02-06 09:06] LABS: BUN/CREATININE RATIO 28.5 (10-20); CALCIUM 8.1 mg/dl (8.5-10.1); CREATININE 0.65 mg/dl (0.60-1.20); POTASSIUM 3.6 mmol/L (3.5-5.1)
[2017-02-06 09:10] LABS: ALB/GLOB RATIO 1.1 (0.9-2)
[2017-02-06 15:20] VITALS: BP 137/82; PULSE 85; TEMP 36.2; O2SAT 99
[2017-02-06] MEDS: ONDANSETRON INJ 2 MG/ML 2 ML VIAL IV PRN (15:25)
--- NOTE | 2017-02-06 18:22 | Progress Note ---
Subjective Date of Service: Feb 06, 2017. Subjective This patient is clear mentation today however refused her lactulose last evening her ammonia subsequent got from the 60s to 150 9I did speak with the patient regarding why she refused the lactulose she cannot give any report I did report this to case management regarding her son a contract to participate in care while she's here. Also discussed the fact that her is working and will have his first day off on 02/08 this may be our target to have her home as she would have good caregivers at home. She is refractory to custodial placement as she has had been in the past to achieve good compliance with her care Problem List Medical Problems: (1) Acute bronchitis Status: Acute (2) Acute hepatic encephalopathy Status: Acute (3) Alkaline phosphatase elevation Status: Acute (4) Back pain Status: Acute (5) Bradycardia Status: Acute (6) Breakthrough seizure Status: Acute (7) Burn Status: Acute (8) Change in mental status Status: Acute (9) Change in mental status Status: Acute (10) Change in mental status Status: Acute (11) Change in mental status Status: Acute (12) Chronic low back pain Status: Acute (13) Closed head injury Status: Acute (14) Dehydration Status: Acute (15) Dizziness Status: Acute (16) Facial laceration Status: Acute (17) Fall Status: Acute (18) Fall Status: Acute (19) Fall Status: Acute (20) Fatigue Status: Acute (21) Hemorrhoid Status: Acute (22) Hepatic encephalopathy Status: Acute (23) Hepatic encephalopathy Status: Acute (24) Hepatic encephalopathy Status: Acute (25) Hepatic encephalopathy Status: Acute (26) Hepatic encephalopathy Status: Acute (27) Hepatic encephalopathy Status: Acute (28) Hepatic encephalopathy Status: Acute (29) Hepatic encephalopathy Status: Acute (30) Hepatic encephalopathy Status: Acute (31) Hepatic encephalopathy Status: Acute (32) Hepatic encephalopathy Status: Acute (33) Hepatic encephalopathy Status: Acute (34) Hyperammonemia Status: Acute (35) Hyperammonemia Status: Acute (36) Hyperammonemia Status: Acute (37) Hyperammonemia Status: Acute (38) Hyperammonemia Status: Acute (39) Hypocalcemia Status: Acute (40) Hypocalcemia Status: Acute (41) Hypokalemia Status: Acute (42) Hypomagnesemia Status: Acute (43) Increased ammonia level Status: Acute (44) Left foot pain Status: Acute (45) Left shoulder pain Status: Acute (46) Leukopenia Status: Acute (47) Low back pain Status: Acute (48) Migraine Status: Acute (49) Nausea & vomiting Status: Acute (50) Noncompliance with medication regimen Status: Acute (51) Pain in pelvis Status: Acute (52) Pancytopenia Status: Acute (53) Persistent vomiting Status: Acute (54) Post-operative pain Status: Acute (55) Right ear pain Status: Acute (56) Right groin pain Status: Acute (57) Right hip pain Status: Acute (58) Right upper lobe pneumonia Status: Acute (59) RUQ abdominal pain Status: Acute (60) Sepsis Status: Acute (61) Vomiting Status: Acute (62) Weakness Status: Acute (63) Weakness Status: Acute (64) Weakness Status: Acute (65) Weakness Status: Acute Review of Systems Constitutional: No fever Respiratory: No cough, No sputum Cardiac: No chest pain, No orthopnea Abdomen: No pain, No nausea Musculoskeletal: No joint pain, No muscle pain Psychiatric: No depression symptoms, No anhedonism Objective Vital Signs Date Time Temp Pulse Resp B/P (MAP) Pulse Ox O2 Delivery O2 Flow Rate FiO2 02/06/17 15:20 Room Air 02/06/17 15:20 36.2 85 16 137/82 (100) 99 Room Air 02/06/17 08:00 Room Air 02/06/17 06:51 36.4 87 17 128/68 (88) 97 Room Air 02/05/17 23:40 Room Air 02/05/17 23:34 36.3 77 16 119/71 (87) 98 Room Air Physical Exam General Appearance: WD/WN, no apparent distress Eyes: PERRL, EOMI, sclerae normal Neck: no adenopathy, no JVD Respiratory/Chest: chest non-tender, lungs clear, normal breath sounds Cardiovascular: regular rate, rhythm, no murmur Abdomen: normal bowel sounds, non tender, soft Extremities: no pedal edema, no calf tenderness Neurologic/Psychiatric: alert, oriented x 3 Laboratory Results Last 24 Hours Test 02/05/17 20:22 02/06/17 07:51 02/06/17 08:29 02/06/17 12:08 Bedside Glucose 209 mg/dl 148 mg/dl 270 mg/dl Sodium Level 137 mmol/L Potassium Level 3.6 mmol/L Chloride Level 103 mmol/L Carbon Dioxide Level 28 mmol/L Anion Gap 6.0 mmol/L Blood Urea Nitrogen 19 mg/dl Creatinine 0.65 mg/dl Est Creatinine Clear Calc Drug Dose 113.5 ml/min Estimated GFR () 119.1 Estimated GFR (Non- 102.8 BUN/Creatinine Ratio 28.5 Random Glucose 163 mg/dl Calcium Level 8.1 mg/dl Total Bilirubin 1.5 mg/dl Aspartate Amino Transf (AST/SGOT) 57 U/L Alanine Aminotransferase (ALT/SGPT) 57 U/L Alkaline Phosphatase 284 U/L Ammonia 159.0 umol/L Total Protein 6.2 gm/dl Albumin 3.2 gm/dl Globulin 3.0 gm/dl Albumin/Globulin Ratio 1.1 Assessment and Plan 51 y/o F Hx Cirrhosis, bipolar disease, type II DM, MDS with pancytopenia, seizures, asthma, hypothyroidism. Frequently attends the hospital due to encephalopathy. She presented with persistent nausea, vomiting and confusion Initial labs with a high ammonia level. She did not exhibit any concomitant encephalopathy. Cirrhosis and encephalopathy - encephalopathy ammonia markedly reduced with increased Lactulose but then rebounded as she self held her dose will reinforce lactulose use and continued Xifaxin. . Will also Cont Bumex/ Aldactone to help control ascites On hospital day one she developed the period of decreased responsiveness after having visitation which reversed with IV Narcan Nausea and vomiting - resolved daily full breakfast today DM - placed on SS, resume tajeo once taking po Pancytopenia - stable - f/u blood work this is secondary to liver disease and medication Seizures - remain stable , cont Keppra, Trileptal Hypothyroidism - cont Synthroid Full code - SCDs
[2017-02-06] MEDS: ACETAMINOPHEN 325 MG TAB PO PRN (19:10)
[2017-02-06] MEDS: FERROUS SULFATE 325 MG TAB PO SCH (21:03)
[2017-02-06] MEDS: MIRTAZAPINE TAB 15 MG TAB PO SCH (21:03)
[2017-02-06 23:15] VITALS: BP 142/74; PULSE 84; TEMP 36.2; O2SAT 99
[2017-02-07] MEDS: LEVOTHYROXINE 75 MCG TAB PO SCH (06:23)
[2017-02-07 07:38] VITALS: BP 168/82; PULSE 80; TEMP 36.6; O2SAT 98
[2017-02-07 07:45] VITALS: BP 128/77
[2017-02-07] MEDS: ACETAMINOPHEN 325 MG TAB PO PRN ×2 (07:46→22:07)
[2017-02-07 08:01] VITALS: O2SAT 98
[2017-02-07] MEDS: TOPIRAMATE 25 MG TAB PO SCH ×2 (09:44→21:41)
[2017-02-07] MEDS: MAGNESIUM OXIDE 400 MG TAB PO SCH ×3 (09:44→21:40)
[2017-02-07] MEDS: RIFAXIMIN TAB 550 MG TAB PO SCH ×2 (09:45→21:42)
[2017-02-07] MEDS: OXCARBAZEPINE 150 MG TAB PO SCH ×2 (09:45→21:41)
[2017-02-07] MEDS: SPIRONOLACTONE 25 MG TAB PO SCH (09:45)
[2017-02-07] MEDS: LEVETIRACETAM 500 MG TAB PO SCH ×2 (09:46→21:40)
[2017-02-07] MEDS: LACTULOSE SYRUP 20 GM/30 ML UDC PO SCH ×3 (09:46→21:40)
[2017-02-07] MEDS: PANTOprazole SOD 40 MG TAB PO SCH (09:46)
[2017-02-07] MEDS: RANITIDINE HCL 150 MG TAB PO SCH ×2 (09:46→21:42)
[2017-02-07] MEDS: BUMETANIDE 1 MG TAB PO SCH (09:46)
[2017-02-07] MEDS: INSULIN ASPART 100 UNITS/ML 3 ML PEN SC SCH ×4 (09:54→22:01)
[2017-02-07] MEDS: INSULIN GLARGINE 300 UNITS/ML INJ SC SCH (09:55)
[2017-02-07] MEDS: OXYCODONE HCL IR 5 MG TAB (IMMEDIATE RELEASE) PO PRN (14:32)
[2017-02-07 15:01] VITALS: BP 131/79; PULSE 91; TEMP 36.5; O2SAT 96
[2017-02-07 17:46] VITALS: PULSE 80; O2SAT 99
--- NOTE | 2017-02-07 20:02 | Progress Note ---
Subjective Date of Service: Feb 07, 2017. Subjective Pt evaluation today including: conversation w/ patient, physical exam, chart review, lab review, review of inpatient medication list Pain: right leg - anterior - below the knee (stabbing, throbbing) PO Intake: normal Voiding: no voiding problems patient fully awake/alert and able to give me full history she stated "my wasn't giving me enough lactulose" main complaint is that of right leg pain as above h/o lumbar spine pain asks for oxycodone because "that's what I take at home" review of "external med history" does confirm she receives oxycodone as a prescription by outside provider Problem List Medical Problems: (1) Acute bronchitis Status: Acute (2) Acute hepatic encephalopathy Status: Acute (3) Alkaline phosphatase elevation Status: Acute (4) Back pain Status: Acute (5) Bradycardia Status: Acute (6) Breakthrough seizure Status: Acute (7) Burn Status: Acute (8) Change in mental status Status: Acute (9) Change in mental status Status: Acute (10) Change in mental status Status: Acute (11) Change in mental status Status: Acute (12) Chronic low back pain Status: Acute (13) Closed head injury Status: Acute (14) Dehydration Status: Acute (15) Dizziness Status: Acute (16) Facial laceration Status: Acute (17) Fall Status: Acute (18) Fall Status: Acute (19) Fall Status: Acute (20) Fatigue Status: Acute (21) Hemorrhoid Status: Acute (22) Hepatic encephalopathy Status: Acute (23) Hepatic encephalopathy Status: Acute (24) Hepatic encephalopathy Status: Acute (25) Hepatic encephalopathy Status: Acute (26) Hepatic encephalopathy Status: Acute (27) Hepatic encephalopathy Status: Acute (28) Hepatic encephalopathy Status: Acute (29) Hepatic encephalopathy Status: Acute (30) Hepatic encephalopathy Status: Acute (31) Hepatic encephalopathy Status: Acute (32) Hepatic encephalopathy Status: Acute (33) Hepatic encephalopathy Status: Acute (34) Hyperammonemia Status: Acute (35) Hyperammonemia Status: Acute (36) Hyperammonemia Status: Acute (37) Hyperammonemia Status: Acute (38) Hyperammonemia Status: Acute (39) Hypocalcemia Status: Acute (40) Hypocalcemia Status: Acute (41) Hypokalemia Status: Acute (42) Hypomagnesemia Status: Acute (43) Increased ammonia level Status: Acute (44) Left foot pain Status: Acute (45) Left shoulder pain Status: Acute (46) Leukopenia Status: Acute (47) Low back pain Status: Acute (48) Migraine Status: Acute (49) Nausea & vomiting Status: Acute (50) Noncompliance with medication regimen Status: Acute (51) Pain in pelvis Status: Acute (52) Pancytopenia Status: Acute (53) Persistent vomiting Status: Acute (54) Post-operative pain Status: Acute (55) Right ear pain Status: Acute (56) Right groin pain Status: Acute (57) Right hip pain Status: Acute (58) Right upper lobe pneumonia Status: Acute (59) RUQ abdominal pain Status: Acute (60) Sepsis Status: Acute (61) Vomiting Status: Acute (62) Weakness Status: Acute (63) Weakness Status: Acute (64) Weakness Status: Acute (65) Weakness Status: Acute Review of Systems Constitutional: No fever Respiratory: No shortness of breath Cardiac: No chest pain Abdomen: No pain Objective Vital Signs Date Time Temp Pulse Resp B/P (MAP) Pulse Ox O2 Delivery O2 Flow Rate FiO2 02/07/17 17:46 80 99 Room Air 02/07/17 15:01 36.5 91 17 131/79 (96) 96 Room Air 02/07/17 08:01 98 Room Air 02/07/17 07:45 128/77 (94) 02/07/17 07:38 36.6 80 20 168/82 (110) 98 Room Air 02/07/17 07:30 Room Air 02/07/17 00:32 Room Air 02/06/17 23:15 36.2 84 18 142/74 (96) 99 Room Air Physical Exam General Appearance: no apparent distress ENT: pharynx normal Neck: no JVD Respiratory/Chest: lungs clear, no respiratory distress, no accessory muscle use Cardiovascular: regular rate, rhythm, no gallop, + systolic murmur (2/6 LSB) Abdomen: normal bowel sounds, non tender, soft, no organomegaly Extremities: no pedal edema Neurologic/Psychiatric: no motor/sensory deficits (RLE, LLE), alert, oriented x 3, + pertinent finding (no asterixis) Laboratory Results Last 24 Hours Test 02/06/17 20:41 02/07/17 06:12 02/07/17 08:02 02/07/17 11:57 Bedside Glucose 214 mg/dl 184 mg/dl 233 mg/dl Ammonia 99.0 umol/L Test 02/07/17 17:09 Bedside Glucose 158 mg/dl Assessment and Plan 51yo female - 1. hepatic encephalopathy - 2nd to med noncompliance - resolved clinically. Ammonia in AM. Her baseline level runs ~80-100. 2. 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 MRI and CT of lumbar spine in 2014/2015 with considerable DJD. Oxycodone 5mg q8h prn. 3. bipolar disorder - continue all home meds as previous. 4. cirrhosis 2nd to STEVE - volume status acceptable. 5. T2DM - increase lantus to 38 units HS; increase correction to 15 and carb ratio to 1:5. 6. seizure disorder - continue home meds. 7. pancytopenia - 2nd to #4 - stable. anticipate d/c tomorrow if she stays beyond tomorrow then add lovenox for DVT proph Discharge planning: home with home health
[2017-02-07] MEDS: FERROUS SULFATE 325 MG TAB PO SCH (21:40)
[2017-02-07] MEDS: MIRTAZAPINE TAB 15 MG TAB PO SCH (21:41)
[2017-02-07 22:51] VITALS: BP 106/66; PULSE 74; TEMP 36.6; O2SAT 98
[2017-02-08] MEDS: OXYCODONE HCL IR 5 MG TAB (IMMEDIATE RELEASE) PO PRN ×2 (00:18→08:57)
[2017-02-08] MEDS: LEVOTHYROXINE 75 MCG TAB PO SCH (05:26)
[2017-02-08] MEDS: ACETAMINOPHEN 325 MG TAB PO PRN (05:26)
[2017-02-08 06:22] LABS: BUN/CREATININE RATIO 25.2 (10-20); CALCIUM 7.9 mg/dl (8.5-10.1); CREATININE 0.66 mg/dl (0.60-1.20); MAGNESIUM 1.8 mg/dl (1.8-2.4); POTASSIUM 3.5 mmol/L (3.5-5.1)
[2017-02-08 07:43] VITALS: BP 119/75; PULSE 76; TEMP 36.4; O2SAT 99
[2017-02-08] MEDS ORDERED: INSULIN GLARGINE 300 UNIT/ML SC SCH (09:00)
[2017-02-08] MEDS: RANITIDINE HCL 150 MG TAB PO SCH (09:18)
[2017-02-08] MEDS: SPIRONOLACTONE 25 MG TAB PO SCH (09:18)
[2017-02-08] MEDS: PANTOprazole SOD 40 MG TAB PO SCH (09:18)
[2017-02-08] MEDS: BUMETANIDE 1 MG TAB PO SCH (09:18)
[2017-02-08] MEDS: TOPIRAMATE 25 MG TAB PO SCH (09:19)
[2017-02-08] MEDS: OXCARBAZEPINE 150 MG TAB PO SCH (09:19)
[2017-02-08] MEDS: RIFAXIMIN TAB 550 MG TAB PO SCH (09:19)
[2017-02-08] MEDS: MAGNESIUM OXIDE 400 MG TAB PO SCH ×2 (09:19→13:27)
[2017-02-08] MEDS: LACTULOSE SYRUP 20 GM/30 ML UDC PO SCH ×2 (09:20→13:27)
[2017-02-08] MEDS: LEVETIRACETAM 500 MG TAB PO SCH (09:20)
[2017-02-08] MEDS: INSULIN ASPART 100 UNITS/ML 3 ML PEN SC SCH ×2 (09:24→13:27)
[2017-02-08] MEDS: ONDANSETRON INJ 2 MG/ML 2 ML VIAL IV PRN (14:26)
[2017-02-08] MEDS ORDERED: DICLOFENAC SOD 1% GEL 100 GM TUBE EXT SCH (15:45)
[2017-02-08] MEDS ORDERED: LACT10SO17 PO (15:47)
[2017-02-08] MEDS ORDERED: VLTG EXT (15:47)
[2017-02-08 15:56] VITALS: BP 119/75; PULSE 76; TEMP 36.4; O2SAT 99
--- NOTE | 2017-02-08 15:56 | Discharge Instructions ---
Discharge Instructions Date of Service Feb 08, 2017. Admission Reason for Admission: Encephalopathy (confusion) due to elevated ammonia levels Discharge Discharge Diagnosis / Problem: elevated ammonia levels - improved Discharge Goals Goal(s): Learn about illness, Diagnostic testing, Therapeutic intervention Activity Recommendations Activity Limitations: resume your previous activity . Instructions / Follow-Up Instructions / Follow-Up 1. Hepatic encephalopathy (elevated ammonia levels) - improved with lactulose and rifaximin. Your ammonia level today was 105 and yesterday it was 100. You typically run about 80-100 when you are feeling well. Continue your lactulose twice-three times a day to maintain 2-3 bowel movements EVERY DAY. Continue your rifaximin. Follow a low protein diet (avoid excessive amounts of turkey, chicken, etc). 2. Pain in your right leg - I suspect this is from a pinched nerve in your lumbar spine/back. Your previous MRI and CT scans of the lumbar spine show a considerable amount of degeneration. Please follow-up with your family doctor about this. 3. Chronic back and shoulder/arm pains - * at this time I would DISCONTINUE ALL OXYCODONE USE / NARCOTIC USE IT MAKES YOU VERY SLEEPY * PLEASE DISCARD/THROW AWAY ANY REMAINING OXYCODONE AT HOME * ok to use voltaren gel 4 grams every 6 hours as needed for pain; simply rub the gel into a joint (shoulder, knee, etc) or the lower back as desired for pain control * on occasion, if you need something stronger, you may use [id number] ibuprofen 400mg up to 3 times a day as needed for pain relief 4. Continue all of your other medications as previous. 5. See Dr. Little within 5 days. 6. Return to [facility] if - * you develop fever over 100.5 degrees * you develop confusion, lethargy/extreme drowsiness, etc * you have persistently high blood sugars or low blood sugars * pain that is not controlled * any other concerns Current Hospital Diet Patient's current hospital diet: Diabetes Type 2 Diet Discharge Diet Recommended Diet: Diabetes Type 2 Diet Pending Studies Studies pending at discharge: no Laboratory Results Hemoglobin A1c Test 12/31/16 05:08 Range/Units Estimated Average Glucose 91 mg/dl Hemoglobin A1c 4.8 4.5-5.6 % Medical Emergencies . Who to Call and When: Medical Emergencies: If at any time you feel your situation is an emergency, please call 911 immediately. . Non-Emergent Contact Non-Emergency issues call your: Primary Care Provider Call Non-Emergent contact if: temperature is above 100.5, your pain is not controlled, your pain is worsening, your pain is unusual for you, your pain is concerning you, you have any medication questions . . "Provider Documentation" section prepared by Sammy Haney. . VTE Core Measure Inpt VTE Proph given/why not?: SCD's
--- NOTE | 2017-02-12 22:51 | Discharge Summary ---
Discharge Summary Date of Service Feb 12, 2017. Discharge Summary Admission Date: Feb 05, 2017 at 00:58 Discharge Date: Feb 08, 2017 Discharge Disposition: Home with services Principal Diagnosis: hepatic encephalopathy Problems/Secondary Diagnoses: 1. cirrhosis 2nd to STEVE 2. T2DM 3. bipolar disorder type 1 4. chronic pain syndrome 5. hypothyroidism 6. seizure disorder 7. numerous admissions for hepatic encephalopathy 8. chronic migraine headaches 9. right lower extremity neuropathic pain, likely from lumbar spine disease 10. 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 diabetic gastroparesis Immunizations: Have You Had Influenza Vaccine: Yes Influenza Vaccine Date: Feb 02, 2013 History of Tetanus Vaccine?: utd Tetanus Immunization Date: Jun 11, 2008 History of Pneumococcal: SEE LAST PACKET Pneumococcal Date: Nov 13, 2008 History of Hepatitis B Vaccine: Unknown Hepatitis Immunization Date: Jan 12, 1996 Medication Reconciliation New Medications: Diclofenac Sod (Voltaren) 100 Appln/100 Gm Gel 1 APPLN EXT QID, #1 TUBE 2 Refills apply 4 grams to affected area every 6 hours as needed Changed Medications: Lactulose (Chronulac) 10 Gm/15 Ml Syrp 30 ML PO bid-tid, #1 BTL 11 Refills (Changed from: BID; Refills: ) titrate the dose to maintain 2-3 bowel movements each day Continued Medications: Albuterol Hfa (Ventolin Hfa) 200 Puffs/78026 Mcg Aers 2-4 PUFFS INH Q6H PRN for Shortness of Breath, #1 INHALER Ascorbic Acid (Vitamin C) 1,000 Mg Tab 1000 MG PO DAILY Bumetanide (Bumex) 1 Mg Tab 1 MG PO QAM, TAB Cholecalciferol (Vitamin D) 1,000 Unit Tab 5000 UNITS PO DAILY Cranberry (Vaccinium Macrocarp (Cranberry Extract) 200 Mg Cap 1 CAP PO DAILY Epinephrine (Epipen) 0.3 Mg/0.3 Ml Inj 0.3 MG IM UD PRN for ALLERGIC REACTION Ferrous Sulfate (Ferrous Sulfate) 325 Mg Tab 325 MG PO QPM Ibuprofen Tab (Motrin) 800 Mg Tab 800 MG PO Q4 PRN for Pain, TAB Insulin Glargine (Toujeo Solostar) 300 Unit/Ml Inj 38 UNITS SQ QAM Insulin Lispro (Human) (Humalog Kwikpen) 100 Unit/Ml Inj UNITS SC UD PER SLIDING SCALE inject a total of 60 units per day as necessary Levetiracetam (Levetiracetam) 1,000 Mg Tab 2000 MG PO BID Levothyroxine Sodium (Levothyroxine Sodium) 75 Mcg Tab 75 MCG PO QAM, TAB Lutein-Zeaxanthin (Lutein) 1 Cap Cap 1 CAP PO DAILY Magnesium Oxide (Mag-Ox) 400 Mg Tab 400 MG PO TID, TAB Mirtazapine (Remeron) 30 Mg Tab 30 MG PO HS Omeprazole (Prilosec) 20 Mg Capcr 20 MG PO QAM, CAP Oxcarbazepine (Trileptal) 300 Mg Tab 300 MG PO QAM Oxcarbazepine (Trileptal) 300 Mg Tab 600 MG PO HS Probiotic Product (Probiotic) 1 Cap Cap 1 CAP PO DAILY Ranitidine HCl (Ranitidine HCl) 150 Mg Tab 150 MG PO BID Rifaximin (Xifaxan) 550 Mg Tab 550 MG PO BID, TAB Spironolactone (Aldactone) 25 Mg Tab 25 MG PO QAM, TAB Sumatriptan Succinate (Imitrex) 100 Mg Tab 100 MG PO UD PRN for Migraine, TAB Tiotropium [place] (Spiriva Respimat) 2.5 Mcg/Act Spr 2 PUFF INH DAILYBB, INHALER Topiramate (Topamax) 50 Mg Tab 50 MG PO BID TOTAL DOSE: 75MG BID Topiramate (Topamax ) 25 Mg Tab 25 MG PO BID TOTAL DOSE: 75MG BID Zinc Gluconate (Zinc) 50 Mg Tab 50 MG PO BID Discharge Exam Physical Exam: General Appearance: no apparent distress ENT: pharynx normal Neck: no JVD Respiratory/Chest: lungs clear, no respiratory distress, no accessory muscle use Cardiovascular: regular rate, rhythm, no gallop, no murmur, normal peripheral pulses Abdomen / GI: normal bowel sounds, non tender, soft, no organomegaly Extremities: no pedal edema Neurologic/Psychiatric: alert, oriented x 3, + pertinent finding (no asterixis ) Skin: normal color, no rash Hospital Course HISTORY OF PRESENT ILLNESS: 51 y/o female with history of Cirrhosis 2nd to STEVE, bipolar disease, type II DM , MDS with pancytopenia, seizures, asthma, hypothyroidism. Frequently attends the hospital due to encephalopathy. She presents with persistent nausea, vomiting and reported confusion although she is able to provide a clear history. She states she believes her ammonia level is high and that this is due to her not giving her enough of her lactulose. The pt may not be a reliable historian as she tends to confirm every item on a review of systems checklist including pain in her head, abdomen and chest. Initial labs confirm a high ammonia level. HOSPITAL COURSE: With simply resuming her normal lactulose dosing and rifaximin twice daily the patient's ammonia improved from >220 to about 100 at time of discharge. Her "baseline" ammonia levels typically run about 80-100. Her nausea & emesis along with mild confusion promptly resolved with treatment of her elevated ammonia levels. It was suspected that the cause of her presenting hepatic encephalopathy was due to medication noncompliance. Her only other complaint during this stay was that of musculoskeletal pains in her back, left arm, and her right leg. The RLE pain seemed to follow a radicular pattern, likely from lumbar spine DJD. MRI and CT of the lumbar spine in 2014/2015 showed considerable DJD. She was noted during this stay that she became quite sleepy with use of oxycodone. She apparently takes oxycodone at home for chronic pain in her back, arm, etc. I had a lengthy discussion with the patient AND her on day of discharge that because of her cirrhosis narcotics are A VERY POOR OPTION FOR HER PAIN CONTROL. DUE TO HER LIVER DYSFUNCTION THE EFFECTS OF THE OXYCODONE WILL BE MUCH GREATER LEADING TO EXCESS SEDATION. We discussed use of occasional NSAID along with topical NSAID gel in nahun of narcotics. They voiced understanding. I contacted her primary orthopedist regarding my recommendations as well. All other medical problems including T2DM, pancytopenia, etc remained stable while hospitalized. Total Time Spent: Greater than 30 minutes This includes examination of the patient, discharge planning, medication reconciliation, and communication with other providers. Discharge Instructions Please refer to the electronic Patient Visit Report (Discharge Instructions) for additional information. Follow-Up see Dr. Little, PCP, within 5-7 days resume home health services and home PT after discharge Additional Copies To Abdulkadir Torres D.O.; Olena Little, DO
== END 2017-02-08 16:26 | disposition home health service (06) ==
LOC: EDBD 23:05 → C.EDB 23:06 → C.MSN 02-05 00:58
PROVIDERS: ADMIT Internal Medicine; ATTEND Internal Medicine
DX: K72.90 Hepatic failure, unspecified without coma (principal); G93.49 Other encephalopathy; R11.2 Nausea with vomiting, unspecified; E11.43 Type 2 diabetes mellitus with diabetic autonomic (poly)neuropathy; D46.9 Myelodysplastic syndrome, unspecified; E72.20 Disorder of urea cycle metabolism, unspecified; J45.909 Unspecified asthma, uncomplicated; K74.60 Unspecified cirrhosis of liver; F31.9 Bipolar disorder, unspecified; G40.909 Epilepsy, unspecified, not intractable, without status epilepticus; F32.9 Major depressive disorder, single episode, unspecified; Z79.4 Long term (current) use of insulin; Z79.899 Other long term (current) drug therapy

== ENCOUNTER → 2017-02-13 | Outpatient (CLI) | payer BC, OTHER ==
[~2017-02-13] MED LIST changes: +BUME1TAB PO; -CRAN1TAB6 PO; +CRAN200C PO; -FLNIN/ NAE; -GLUC-338 PO; +IBUP-1451 PO; +LACT10SO17 PO; -LCTL30 PO; +MIRT30TA3 PO; -MULT-506 PO; -NAPR-998 PO; -ONDA4TAB10 SL; +OXCA300T PO; -OXCA600T2 PO; -OXYC1TAB3 PO; -PROM12.57 PO; -RMR15 PO; +TIOT1SPR INH; -TRIA1SPR4 NAE; -VITA80004 PO; +VLTG EXT; -[UNRECOGNIZED DRUG - CODE] PO
--- NOTE | 2017-02-13 16:06 | DIAGNOSTIC IMAGING REPORT ---
ABDOMEN 2VIEW W/PA CHEST RTN CLINICAL HISTORY: Nausea, vomiting. COMPARISON STUDY: 01/13/2017 FINDINGS: The cardiac and mediastinal contours remain stable. There is a right-sided A-Port catheter unchanged in position. A left-sided stimulator with electrode projecting over the base the neck is again visualized. There is no failure. There is no focal pulmonary consolidation. There are no pleural effusions. Postsurgical changes involve the proximal left humerus. There is no free air. Erect and supine views the abdomen reveal no abnormally dilated loops of large or small bowel. There are multiple colonic air-fluid levels. There are surgical clips the right upper quadrant consistent with a prior cholecystectomy. Radiopaque densities within the right lower quadrant likely represent pill fragments. IMPRESSION: 1. No evidence of bowel obstruction. No evidence of free air 2. Multiple colonic air-fluid levels. This is a nonspecific finding which could indicate a gastroenteritis. Electronically signed by: Bran Hernandez M.D. 02/13/2017 4:05 PM Dictated Date/Time: 02/13/2017 4:03 PM
[2017-02-13 16:14] LABS: ALT/SGPT 58 U/L (12-78); AST/SGOT 55 U/L (15-37); BLOOD UREA NITROGEN 15 mg/dl (7-18); BUN/CREATININE RATIO 20.7 (10-20); CALCIUM 8.1 mg/dl (8.5-10.1); CARBON DIOXIDE 24 mmol/L (21-32); CHLORIDE 110 mmol/L (98-107); CREATININE 0.73 mg/dl (0.60-1.20); GLUCOSE 219 mg/dl (70-99); POTASSIUM 3.4 mmol/L (3.5-5.1); SODIUM 145 mmol/L (136-145)
[2017-02-13 16:16] LABS: ALB/GLOB RATIO 1.2 (0.9-2); ALKALINE PHOSPHATASE 231 U/L (45-117)
== END | disposition home or self-care (01) ==
LOC: C.RAD 14:40
PROVIDERS: ATTEND Internal Medicine Gastroenterology
DX: R11.0 Nausea (principal)

== ENCOUNTER → 2017-02-24 | Outpatient (CLI) | payer BC, OTHER ==
[~2017-02-24] MED LIST changes: +OXYC1TAB3 PO
--- NOTE | 2017-02-24 08:44 | DIAGNOSTIC IMAGING REPORT ---
DUPLEX PORTAL HEPATIC VEINS CLINICAL HISTORY: NAUSEA nausea TECHNIQUE: Doppler COMPARISON STUDY: FINDINGS: Components of hepatic cirrhotic change. Thank pain center and are normal in flow direction. Main portal vein is poorly seen. Hepatic artery is patent and antegrade. IMPRESSION: Hepatic veins as well as hepatic artery are patent and antegrade. The main portal vein, however isn't poorly seen possibly secondary to overlying bowel content versus the possibility of thrombosis The above report was generated using voice recognition software. It may contain grammatical, syntax or spelling errors. Electronically signed by: Kenroy Yates M.D. 02/24/2017 8:42 AM Dictated Date/Time: 02/24/2017 8:26 AM
== END | disposition home or self-care (01) ==
LOC: C.ULTR 07:46
PROVIDERS: ATTEND Internal Medicine Gastroenterology
DX: R11.0 Nausea (principal); R93.2 Abnormal findings on diagnostic imaging of liver and biliary tract

== ENCOUNTER 2017-02-28 16:05 | Inpatient (IN) | payer BC, OTHER ==
[~2017-02-28] VITALS: Ht 162.6 cm; Wt 90.5 kg
[2017-02-28] MEDS ORDERED: VLTG EXT (16:44)
[2017-02-28] MEDS ORDERED: LACT10SO17 PO (16:44)
[2017-02-28] MEDS ORDERED: MAGNESIUM HYDROXIDE SUSP 30 ML UDC PO PRN (16:45)
[2017-02-28] MEDS ORDERED: SODIUM CHLORIDE 0.65% NA SOLN 45 ML (OCEAN) PRN (16:45)
[2017-02-28] MEDS ORDERED: ALBUTEROL HFA 8 GM INHALER INH PRN (16:45)
[2017-02-28] MEDS ORDERED: IBUPROFEN 800 MG TAB PO PRN (16:45)
[2017-02-28] MEDS ORDERED: ALUMINUM/MAGNESIUM SUSP 30 ML UDC PO PRN (16:45)
[2017-02-28] MEDS ORDERED: ACETAMINOPHEN 325 MG TAB PO PRN (16:45)
[2017-02-28] MEDS ORDERED: BISMUTH SUBSALICYLATE PER ML OMNICELL CHARGE PO PRN (16:45)
[2017-02-28] MEDS ORDERED: EPINEPHRINE ADULT AUTO-INJECT 0.3 MG SYR IM PRN (16:45)
[2017-02-28 17:37] VITALS: BP 123/68; PULSE 55; TEMP 37; BMI 34.2
[2017-02-28] MEDS: INSULIN ASPART 100 UNITS/ML 3 ML PEN SC SCH ×2 (17:59→21:07)
[2017-02-28] MEDS ORDERED: PHARMACY GLYCEMIC MGMT CONSULT PRN (18:37)
[2017-02-28] MEDS ORDERED: DICLOFENAC SOD 1% GEL 100 GM TUBE EXT PRN (20:45)
[2017-02-28] MEDS ORDERED: NURSING VERBAL MED ORDER ONE ×2 (20:45→22:15)
--- NOTE | 2017-02-28 20:48 | Pharmacy Progress Note ---
Glycemic Control Intl Consult Date of Service Feb 28, 2017. Scope Glycemic Pharmacist consulted by Dr Saucedo on 02/28/17 for glycemic control and to write orders per [facility] inpatient glycemic control protocol Objective Weight (Kilograms): 90.500 Accuchecks BSG (last 24hrs): Test 02/28/17 17:13 Bedside Glucose 202 mg/dl (70-90) Recent Pertinent Medications Outpatient Anti-diabetic Regimen: * Toujeo 38 units QAM * Humalog TIDM * A1c = 4.8 % 12/31/16 The patient is currently receiving: * Basal insulin: Lantus 38 units every 24 hours * Correctional Insulin: Novolog Correction per scale ACHS Goal Range: Low 110 mg/dL - High 140 mg/dL Correction Factor: 30 mg/dL/unit * Prandial insulin: Per carb ratio of 1 unit per 10 grams CHO consumed Assessment & Plan ASSESSMENT: * 51 yo diabetic female known to our glycemic service from prior admissions - transferred from inpatient medical care to inpatient mental health * Plan will be to continue what has been working this admission and tighten Novolog slightly as her meal time BSGs have been a little high * This change will be similar to what we have used during past consults PLAN FOR INPATIENT GLYCEMIC CONTROL: * Basal insulin with LANTUS 38 units SQ QAM * Correctional Insulin with NOVOLOG per scale ACHS or Q6hrs while NPO * Goal Range: Low 110 mg/dL - High 140 mg/dL * Correction Factor: 20 mg/dL/unit * Nutritional / Prandial insulin per carb ratio of 1 unit per 6 grams CHO consumed * Please note that the plan above was derived based on current level of insulin resistance and hospital stress. These recommendations are appropriate for inpatient admission only. Plan of care upon discharge will need to be reassessed to avoid potential outpatient hypo/hyperglycemia. Thank you.
[2017-02-28] MEDS: MAGNESIUM OXIDE 400 MG TAB PO SCH (20:50)
[2017-02-28] MEDS: TOPIRAMATE 50 MG TAB PO SCH (20:51)
[2017-02-28] MEDS: TOPIRAMATE 25 MG TAB PO SCH (20:51)
[2017-02-28] MEDS: RIFAXIMIN TAB 550 MG TAB PO SCH (20:51)
[2017-02-28] MEDS: FERROUS SULFATE 325 MG TAB PO SCH (20:52)
[2017-02-28] MEDS: ZINC SULFATE 220 MG CAP PO SCH (20:52)
[2017-02-28] MEDS: OXCARBAZEPINE 150 MG TAB PO SCH (20:52)
[2017-02-28] MEDS: LEVETIRACETAM 500 MG TAB PO SCH (20:52)
[2017-02-28] MEDS: RANITIDINE HCL 150 MG TAB PO SCH (20:52)
[2017-02-28] MEDS: LACTULOSE SYRUP 20 GM/30 ML UDC PO SCH (20:53)
[2017-02-28] MEDS ORDERED: SPIRONOLACTONE 25 MG TAB PO SCH (21:00)
[2017-02-28] MEDS ORDERED: LACTULOSE SYRUP 20 GM/30 ML UDC PO SCH (22:00)
[2017-02-28] MEDS ORDERED: DICLOFENAC SOD 1% GEL 100 GM TUBE EXT SCH (22:00)
[2017-02-28] MEDS ORDERED: MIRTAZAPINE TAB 15 MG TAB PO SCH ×2 (22:00)
[2017-02-28] MEDS: hydrOXYzine HCL 25 MG TAB PO PRN (23:11)
[2017-03-01] MEDS ORDERED: TIOTROPIUM BROMIDE INH SCH (08:00)
[2017-03-01 08:13] LABS: HEMATOCRIT 26.5 % (37-47); MEAN CELL VOLUME 100.8 fL (80-100); MEAN CORPUSCULAR HEMOGLOBIN 36.1 pg (25-34); MEAN CORPUSCULAR HGB CONC 35.8 g/dl (32-36); RED BLOOD COUNT 2.63 M/uL (4.2-5.4); WHITE BLOOD COUNT 3.17 K/uL (4.8-10.8)
[2017-03-01 08:17] LABS: MEAN PLATELET VOLUME 10.3 fL (7.4-10.4); PLATELET COUNT 83 K/uL (130-400)
[2017-03-01] MEDS ORDERED: INSULIN GLARGINE SOLOSTAR 100 UNITS/ML 3 ML PEN SC SCH (09:00)
[2017-03-01] MEDS ORDERED: NON-FORMULARY MEDICATION (Lutein-Zeaxanthin (Lutein) 1 CAP) PO SCH (09:00)
[2017-03-01] MEDS ORDERED: CRANBERRY PO SCH (09:00)
[2017-03-01] MEDS ORDERED: INSULIN GLARGINE 38 UNIT SQ SCH (09:00)
[2017-03-01 09:02] LABS: BASO % 1.3 %; BASO ABS # 0.04 K/uL (0-0.2); COMPLETE YES; EOS % 5.4 %; LYMPH % 35.3 %; LYMPH ABS # 1.12 K/uL (1.2-3.4); OVALOCYTES 1+
[2017-03-01] MEDS: BUMETANIDE 1 MG TAB PO SCH (09:15)
[2017-03-01] MEDS: LACTULOSE SYRUP 20 GM/30 ML UDC PO SCH ×2 (09:16→13:46)
[2017-03-01] MEDS: MAGNESIUM OXIDE 400 MG TAB PO SCH ×3 (09:16→21:21)
[2017-03-01] MEDS: LEVOTHYROXINE 75 MCG TAB PO SCH (09:16)
[2017-03-01] MEDS: PANTOprazole SOD 40 MG TAB PO SCH (09:16)
[2017-03-01] MEDS: ASCORBIC ACID 500 MG TAB PO SCH (09:16)
[2017-03-01] MEDS: LACTOBACILLUS ACIDOPHILUS (FLORANEX) TAB PO SCH (09:16)
[2017-03-01] MEDS: RANITIDINE HCL 150 MG TAB PO SCH ×2 (09:16→21:19)
[2017-03-01] MEDS: CHOLECALCIFEROL 1000 INTER.UNIT TAB PO SCH (09:16)
[2017-03-01] MEDS: ZINC SULFATE 220 MG CAP PO SCH ×2 (09:16→21:19)
--- NOTE | 2017-03-01 09:16 | Psychiatric History & Physical ---
History Date of Service Mar 01, 2017. Identifying Data Charline is a 51-year-old white female who lives in [place] with her , has a history of depression, borderline personality disorder, cirrhosis , diabetes, seizure disorder, and several other medical conditions who presented to the emergency room 02/25/17 with suicidal ideation to overdose on her insulin. She was admitted medically due to hyperammonemia due to poor compliance with medications, and was medically cleared and transferred to the [facility] voluntarily on 02/28/17. Chief Complaint "My mood's not very good". History of Present Illness Patient is known to me from multiple previous psychiatric consultations. Prior to this admission, she was last seen by the undersigned in psychiatric consultation in May 2015 when she was admitted medically for hepatic encephalopathy. At that time, she was following with her outpatient psychiatrist, Dr. Sams, at [facility] and was taking escitalopram, venlafaxine, and trazodone. She has a history of poor compliance with outpatient appointments due to difficulty with transportation and other social issues. Since that time , she has had numerous admissions to the hospitalist service (this is her ninth admission in the past year), usually for hepatic encephalopathy. Shortly after midnight 02/25/17, she contacted [facility], stating that she had not been able to sleep for the past couple of nights, and mood was worsening. She endorsed suicidal thoughts to overdose on her insulin, and it was recommended that she come into the emergency room. The [facility] notes indicate that she has such a marked tremor that she was unable to sign paperwork. She reported decreased appetite over the past 5 days, and said she was not bathing or caring for herself. She denied any specific psychosocial stressors or exacerbating events , other than being unable to sleep for the past several nights. She admitted to taking double the recommended amount of Tylenol PM to try to fall asleep, but denied that she was attempting to harm herself. On presentation to the emergency room, she reported severe back pain, abdominal pain, and constipation , and her reported that she had appeared very confused that day, and he wondered if her ammonia level was elevated. On exam, she was lethargic and difficult to arouse. Labs revealed an ammonia of 280, elevated bilirubin, AST, and alkaline phosphatase, elevated PT and INR, and low WBCs, RBCs, platelets, hemoglobin and hematocrit. She was continued on oxcarbazepine and mirtazapine at her home doses, and all of her medical medications were continued unchanged. Her ammonia was followed, and was trending downwards - 110 on 02/26/2017. She is now seeing Lisa Barrera for psychiatric med management, and her records were received and reviewed: stopped trazodone and Pristiq and started mirtazapine in September per patient. Last seen 02/03/2017, said her mood had been lower and sleep was poor, and she had increased her Remeron to 60 mg on her own , thinking it might help her sleep. She wanted new medication for sleep and mood. She admitted that she had been sleeping during the day, napping with her both in the morning and in the evening, and then unable to fall asleep at night. She was advised to continue mirtazapine at the prescribed dose of 30 mg at bedtime, and that her sleep difficulties were a behavioral issue, and she should not sleep during the day and should only go to bed at night when it is time for sleep. She was also encouraged to go to psych rehabilitation as often as possible and to exercise during the day to help with sleep. She was advised to follow up in 8 weeks. Her diagnosis is recurrent depression. Today, she states that her mood continues to be depressed, and perseverates on wanting "a different sleep medication, I need something to help me with sleep." She states that the hydroxyzine 50 mg that she got last night was helpful for sleep, and nursing staff report she slept well, 5-1/2 hours overnight and is still in bed this morning. She cannot explain why she keeps asking for "a different sleep medication," other than to say "I can't keep taking the Vistaril ," but cannot explain why. She then starts talking about her pain medication, wanting to know if she can get oxycodone here. She further states that she would like a new medication for mood, and says she was under the impression that mirtazapine was for sleep only. She is agreeable to increasing the mirtazapine to target her mood. She continues to deny any acute stressors at home, and admits that she was not caring for herself prior to admission. She denies suicidal thoughts. She is willing to have a meeting with her . Her goals will she is here or to work on her mood and coping skills, including getting out of bed, going to groups, and coloring. Past Psychiatric History Current OP Treatment: psychiatrist (GHULAM Lindsay, at [place]), therapist ( Terry Hernandez at [place]) Prior OP Treatment: psychiatrist (Dr. Sams at [facility] in the past), therapist (at [facility]), case aide (case was closed in July 2016) Prior Psych Hospitalizations: [facility] (last admission in 2013) Access to a Gun: No Suicide Attempts: Yes Past Medication Trials Include but not limited to: Pristiq - stopped in September Trazodone - stopped in September Citalopram Paroxetine Sertraline Aripiprazole - may have caused seizures Risperidone Quetiapine Elavil Past Medical/Surgical History (1) Hemorrhoids (2) Anemia (3) Heart murmur (4) Asthma (5) Diabetic gastroparesis (6) Portal Hypertension (7) Myelodysplastic syndrome (8) Seizure disorder (9) Pancytopenia (10) Migraines (11) History of hepatic encephalopathy (12) Cirrhosis (13) Peptic ulcer disease (14) Hyperammonemia (15) Diabetes PCP is Dr. Little at [place] Allergies Allergies: Coded Allergies: Amoxicillin (Verified Allergy, Intermediate, HIVES; Has tolerated cephalosporins (Rocephin, Ceftin,Keflex, 02/26/17) Azithromycin (Verified Allergy, Intermediate, HIVES, 02/26/17) Baclofen (Verified Allergy, Intermediate, RASH, 02/26/17) Butalbital (Verified Allergy, Intermediate, HIVES, 02/26/17) Clarithromycin (Verified Allergy, Intermediate, RASH, 02/26/17) Dicyclomine (Verified Allergy, Intermediate, HIVES, 02/26/17) HIVES Penicillins (Verified Allergy, Intermediate, RASH; has tolerated cephs ( Rocephin, Keflex, Ceftin), 02/26/17) PT STATES SHE GETS WELTS FROM CIPRO,LEVAQUIN [facility]ER[facility] PER DR ROBLES Tetracyclines (Verified Allergy, Intermediate, DOXYCYCLINE-HIVES, 02/26/17 ) Sulindac (Verified Allergy, Mild, ALLERGY LISTED "CLONDORAL"--HIVES, ) Adhesives (Verified Allergy, Unknown, RASH, DUODERM=RED,ITCHY, 02/26/17) PLASTIC TAPE IS OK!!! DUODERM=RED,ITCHY Metronidazole (Verified Allergy, Unknown, SEIZURE, 02/26/17) Tramadol (Verified Allergy, Unknown, SEIZURES, 02/26/17) Metoclopramide (Verified Adverse Reaction, Severe, SEIZURES, 02/26/17) Blueberry (Verified Adverse Reaction, Mild, STOMACH PAIN, 02/26/17) Furosemide (Verified Adverse Reaction, Unknown, HIVES, 02/26/17) Home Medications Scheduled Ascorbic Acid (Vitamin C), 1,000 MG PO DAILY Bumetanide (Bumex), 1 MG PO QAM Cholecalciferol (Vitamin D), 5,000 UNITS PO DAILY Cranberry (Vaccinium Macrocarp (Cranberry Extract), 1 CAP PO DAILY Ferrous Sulfate (Ferrous Sulfate), 325 MG PO QPM Insulin Glargine (Toujeo Solostar), 38 UNITS SQ QAM Insulin Lispro (Human) (Humalog Kwikpen), UNITS SC UD Lactulose (Chronulac), 30 ML PO TID Levetiracetam (Levetiracetam), 2,000 MG PO BID Levothyroxine Sodium (Levothyroxine Sodium), 75 MCG PO QAM Lutein-Zeaxanthin (Lutein), 1 CAP PO DAILY Magnesium Oxide (Mag-Ox), 400 MG PO TID Mirtazapine (Remeron), 30 MG PO HS Omeprazole (Prilosec), 20 MG PO QAM Oxcarbazepine (Trileptal), 300 MG PO QAM Oxcarbazepine (Trileptal), 600 MG PO HS Probiotic Product (Probiotic), 1 CAP PO DAILY Ranitidine HCl (Ranitidine HCl), 150 MG PO BID Rifaximin (Xifaxan), 550 MG PO BID Spironolactone (Aldactone), 25 MG PO every afternoon Tiotropium [place] (Spiriva Respimat), 2 PUFF INH DAILYBB Topiramate (Topamax), 50 MG PO BID Topiramate (Topamax ), 25 MG PO BID Zinc Gluconate (Zinc), 50 MG PO BID Scheduled PRN Albuterol Hfa (Ventolin Hfa), 2-4 PUFFS INH Q6H PRN for Shortness of Breath Diclofenac Sod (Voltaren), 4 GM EXT Q6 PRN for Pain Epinephrine (Epipen), 0.3 MG IM UD PRN for ALLERGIC REACTION Ibuprofen Tab (Motrin), 800 MG PO Q4 PRN for Pain Oxycodone Ir (Roxicodone Ir), 5 MG PO Q8 PRN for Pain Sumatriptan Succinate (Imitrex), 100 MG PO UD PRN for Migraine Family History Depression Hypertension Family history unknown as the patient is adopted. Alcohol Use Alcohol Use In Past 12 Months: Yes ("Maybe a glass of wine or beer once a year ") AUDIT Total Score: 1 Smoking Use Smoking Status: Never Smoker Substance History Denies abusing recreational drugs. Personal History Lives in: [employer] with her Childhood: Grew up locally, adopted at age 6 months. Adopted father is , and adoptive mother with dementia. She has a brother who is the biological child of her adoptive parents. Education: started college Work History: Unemployed on disability. 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 Relationship History: Children: none Spiritual Affiliation: temple Legal History: none Psychological Trauma History: Denies Hx Traumatic Event, Emotional Abuse Review of Systems 10 systems reviewed; positive for lethargy, nausea, unsteadiness on feet, negative for symptoms of phan, psychosis, PTSD, eating disorder, panic; others negative except as stated above. Examination Physical Examination A physical exam was performed in the ER and on the medical floor prior to admission to the unit by Dr. Garland. I accept those physicals as correct/ medical clearance for the inpatient physical exam. Vital Signs Vital Signs Past 12 Hours Date Time Temp Pulse Resp B/P (MAP) Pulse Ox O2 Delivery O2 Flow Rate FiO2 03/01/17 06:56 Laboratory Results Last 24 Hours Test 02/28/17 17:01 02/28/17 17:13 02/28/17 20:47 03/01/17 07:39 Ammonia 130.1 umol/L Bedside Glucose 202 mg/dl 149 mg/dl White Blood Count 3.17 K/uL Red Blood Count 2.63 M/uL Hemoglobin 9.5 g/dL Hematocrit 26.5 % Mean Corpuscular Volume 100.8 fL Mean Corpuscular Hemoglobin 36.1 pg Mean Corpuscular Hemoglobin Concent 35.8 g/dl Platelet Count 83 K/uL Mean Platelet Volume 10.3 fL RDW Standard Deviation 48.3 fL RDW Coefficient of Variation 13.3 % Mental Examination During interview pt is: cooperative, other (in bed, somnolent) Appearance: disheveled, other (dressed in pajamas, overweight) Motor behavior is: no abnormal motor movements Speech: other (slowed, delayed) Affect: depressed, constricted, other (sedated/somnolent) Mood is: depressed Thought process: goal directed Thought content: preoccupation (with getting a sleep medication) Suicidal thought are: denied Homicidal thoughts are: denied Hallucinations: denies auditory, denies visual Cognition: memory grossly intact, attention grossly intact, language grossly intact Intelligence estimated to be: average Insight: impaired Judgement: impaired Impression / Recommendations Impression 51-year-old female with a history of depression and borderline personality disorder as well as multiple medical problems who is admitted for depression with thoughts to overdose on insulin. She is on many medications, including 3 seizure medications, insulin, oxycodone; and mirtazapine 30 mg daily at bedtime is the only medication prescribed by her psychiatric PA. When she was last seen in the outpatient clinic, she was requesting sleep medications , but was encouraged to address her sleep through behavioral techniques first. While here, we will offer Vistaril, as she felt was helpful last night, but we' ll need to ensure that she is staying awake and active during the day to allow for optimal sleep at night. I'm hesitant to prescribe her an additional medication for sleep as an outpatient given and history of falls and altered mental status, and will need to continue to assess this and coordinate care with her outpatient provider prior to discharge. She would like to adjust medications to target mood and agrees to increase her mirtazapine to 45 mg daily at bedtime. Has numerous poorly controlled medical conditions, so we will need to follow her glucose, liver function, and CBC closely here, and consider the need for an internal medicine consult. Inventory Assets Strengths: , supportive , has housing and outpatient providers Needs: Improved adherence with treatment recommendations, increased outpatient psychiatric supports (case management and psych rehabilitation). Risk Factors Assessment : Yes /single/: No Higher / Fall in social status: No Access to guns: No Health problems: Yes Mental Health Diagnoses: Yes Substance use disorders: No Previous attempt: Yes Previous psychiatric stay: Yes Hopelessness: No Smoker: No Protective Factors Assessment Uatsdin beliefs: Yes : Yes Responsible for young children: No Employed: No Stable relationships: No Supportive family: Yes Good rapport with provider: Yes Recommendations (1) Depression 03/01- increase mirtazapine to 45 mg daily at bedtime to target mood. - Will need to coordinate care with GHULAM Lindsay, at [place] on Friday regarding medications, specifically the patient's request for sleep medications. - Will offer hydroxyzine 50 mg daily at bedtime when necessary insomnia here, but the patient has multiple sedating medications and her sleep issue is likely primarily behavioral, so will attempt to use this only in the short-term. Advised her that she will need to be up and out of bed during the day and avoid naps in order to allow for optimal sleep at night. - Family meeting with . - Explore ways to increase outpatient supports (refer her for blended case aide and psych rehabilitation). - Every 15 minute checks for safety. - Attend groups and work on healthy coping skills and a discharge safety plan ( would recommend that all medications be locked and secured so she does not have access to large amounts to overdose on). (2) Borderline personality disorder Clear and consistent boundaries, coordinate with outpatient therapist and psychiatric PA. (3) Diabetes Glycemic control consult for assistance in managing diabetes. Continue 38 units Lantus every morning and sliding scale insulin. (4) Hyperammonemia Ammonia was 280 on admission, had been trending down on the medical floor, was 110 on 02/26/2017, and last evening had come up to 130.1. She is somnolent, and I'm concerned about her chronic hepatic encephalopathy, so we will consult medicine for recommendations. (5) Pancytopenia 03/01: Follow daily CBCs: WBC 3.17, RBC 2.63, Hbg 9.5, Hct 26.5, Plt 83 (6) Chronic anemia Follow red blood cell count and consult medicine if needed. (7) Seizure Continue home doses of oxcarbazepine 300 mg every morning and 600 mg daily at bedtime, topiramate 75 mg twice a day, and Keppra 2000 mg twice a day. (8) Peptic ulcer disease Continue home meds. (9) History of hepatic encephalopathy Continue rifaximin. (10) Hypothyroidism Continue home dose of levothyroxine. CPT Code Initial Hospital Care: 15786 Problem Qualifiers (1) Depression: Depression Type: major depressive disorder Major depression recurrence: recurrent Active/Remission status: currently active Major depression episode severity: severe Psychotic features: without psychotic features Qualified Codes: F33.2 - Major depressive disorder, recurrent severe without psychotic features
[2017-03-01] MEDS: OXCARBAZEPINE 150 MG TAB PO SCH ×2 (09:17→21:20)
[2017-03-01] MEDS: TOPIRAMATE 25 MG TAB PO SCH ×2 (09:17→21:20)
[2017-03-01] MEDS: LEVETIRACETAM 500 MG TAB PO SCH ×2 (09:17→21:21)
[2017-03-01] MEDS: TOPIRAMATE 50 MG TAB PO SCH ×2 (09:17→21:20)
[2017-03-01] MEDS: RIFAXIMIN TAB 550 MG TAB PO SCH ×2 (09:18→21:19)
[2017-03-01] MEDS: INSULIN ASPART 100 UNITS/ML 3 ML PEN SC SCH ×5 (09:31→21:35)
[2017-03-01] MEDS: OXYCODONE HCL IR 5 MG TAB (IMMEDIATE RELEASE) PO PRN (10:07)
--- NOTE | 2017-03-01 11:15 | Medical Consult ---
Consultation Date of Consultation: Mar 01, 2017. Attending Physician: Yodit Saucedo MD Reason for Consultation: Elevated ammonia History of Present Illness Patient is a 51 y/o female, with PMHx of liver cirrhosis, bipolar disorder, depression w/ suicidal ideations, seizure disorder, parkinsonism, T2DM, hypothyroidism, pancytopenia, asthma, h/o migraines, and GERD, who was admitted to [facility] for depression w/ suicidal ideations. Hospitalist team was consulted for elevated ammonia at 130. Patient is currently alert/oriented x3. She admits to chronic diffuse body pain- requesting pain medication. She is eating and drinking OK. She admits to taking her Lactulose at prescribed- last BM was yesterday afternoon. +insomnia. Admits to cold-like symptoms w/ runny nose and non-productive cough. +vomiting- states she had 1 episode of vomiting yesterday afternoon after eating. Patient denies any fever, chills, sweats, lightheadedness, dizziness, vision changes, CP, palpitations, edema, SOB, wheezing, abdominal pain, nausea, diarrhea, urinary symptoms, melena, numbness/ tingling, weakness, muscle/joint pain, anxiety, active bleeding, or new skin discoloration/changes. Past Medical/Surgical History Medical Problems: Liver Cirrhosis Bipolar disorder depression w/ suicidal ideations Seizure disorder parkinsonism T2DM Hypothyroidism Pancytopenia, chronic Asthma h/o migraines GERD Family History Depression Hypertension Social History Smoking Status: Never Smoker Drug Use: none Marital Status: Housing Status: lives with significant other Occupation Status: disabled Allergies Coded Allergies: Amoxicillin (Verified Allergy, Intermediate, HIVES; Has tolerated cephalosporins (Rocephin, Ceftin,Keflex, 02/26/17) Azithromycin (Verified Allergy, Intermediate, HIVES, 02/26/17) Baclofen (Verified Allergy, Intermediate, RASH, 02/26/17) Butalbital (Verified Allergy, Intermediate, HIVES, 02/26/17) Clarithromycin (Verified Allergy, Intermediate, RASH, 02/26/17) Dicyclomine (Verified Allergy, Intermediate, HIVES, 02/26/17) HIVES Penicillins (Verified Allergy, Intermediate, RASH; has tolerated cephs ( Rocephin, Keflex, Ceftin), 02/26/17) PT STATES SHE GETS WELTS FROM CIPRO,LEVAQUIN ALLERGY PER DR ROBLES Tetracyclines (Verified Allergy, Intermediate, DOXYCYCLINE-HIVES, 02/26/17 ) Sulindac (Verified Allergy, Mild, ALLERGY LISTED "CLONDORAL"--HIVES, ) Adhesives (Verified Allergy, Unknown, RASH, DUODERM=RED,ITCHY, 02/26/17) PLASTIC TAPE IS OK!!! DUODERM=RED,ITCHY Metronidazole (Verified Allergy, Unknown, SEIZURE, 02/26/17) Tramadol (Verified Allergy, Unknown, SEIZURES, 02/26/17) Metoclopramide (Verified Adverse Reaction, Severe, SEIZURES, 02/26/17) Blueberry (Verified Adverse Reaction, Mild, STOMACH PAIN, 02/26/17) Furosemide (Verified Adverse Reaction, Unknown, HIVES, 02/26/17) Home Medications Reported Home Medications Medications Dose Route/Sig Max Daily Dose Days Date Category Dose Instructions Voltaren (Diclofenac Sod) 100 Appln/100 Gm Gel 4 Gm EXT Q6 PRN 02/28/17 Reported Chronulac (Lactulose) 10 Gm/15 Ml Syrp 30 Ml PO TID 02/28/17 Reported titrate to maintain 2-3 bowel mvmts daily Roxicodone Ir (Oxycodone HCl) 5 Mg Tab 5 Mg PO Q8 PRN 02/26/17 Reported Spiriva Respimat (Tiotropium Cerulean) 2.5 Mcg/Act Spr 2 Puff INH DAILYBB 02/05/17 Reported Trileptal (Oxcarbazepine) 300 Mg Tab 600 Mg PO HS 02/05/17 Reported Trileptal (Oxcarbazepine) 300 Mg Tab 300 Mg PO QAM 02/05/17 Reported Motrin (Ibuprofen) 800 Mg Tab 800 Mg PO Q4 PRN 02/05/17 Reported Cranberry Extract (Cranberry (Vaccinium Macrocarp) 200 Mg Cap 1 Cap PO DAILY 02/05/17 Reported Remeron (Mirtazapine) 30 Mg Tab 30 Mg PO HS 02/05/17 Reported Bumex (Bumetanide) 1 Mg Tab 1 Mg PO QAM 02/05/17 Reported Vitamin D (Cholecalciferol) 1,000 Unit Tab 5,000 Units PO DAILY 01/13/17 Reported Aldactone (Spironolactone) 25 Mg Tab 25 Mg PO EVERY AFTERNOON 12/14/16 Reported Lutein (Lutein-Zeaxanthin) 1 Cap Cap 1 Cap PO DAILY 12/14/16 Reported Vitamin C (Ascorbic Acid) 1,000 Mg Tab 1,000 Mg PO DAILY 12/14/16 Reported Imitrex (Sumatriptan Succinate) 100 Mg Tab 100 Mg PO UD PRN 12/13/16 Reported Levetiracetam 1,000 Mg Tab 2,000 Mg PO BID 12/13/16 Reported Topamax (Topiramate) 25 Mg Tab 25 Mg PO BID 12/13/16 Reported TOTAL DOSE: 75MG BID Topamax (Topiramate) 50 Mg Tab 50 Mg PO BID 12/13/16 Reported TOTAL DOSE: 75MG BID Toujeo Solostar (Insulin Glargine) 300 Unit/Ml Inj 38 Units SQ QAM 12/13/16 Reported Humalog Kwikpen (Insulin Lispro (Human)) 100 Unit/Ml Inj Units SC UD 06/18/16 Reported PER SLIDING SCALE inject a total of 60 units per day as necessary Ventolin Hfa (Albuterol) 200 Puffs/75793 Mcg Aers 2-4 Puffs INH Q6H PRN 05/22/16 Reported Prilosec (Omeprazole) 20 Mg Capcr 20 Mg PO QAM 05/22/16 Reported Epipen (Epinephrine) 0.3 Mg/0.3 Ml Inj 0.3 Mg IM UD PRN 10/22/15 Reported Zinc (Zinc Gluconate) 50 Mg Tab 50 Mg PO BID 08/22/15 Reported Ferrous Sulfate 325 Mg Tab 325 Mg PO QPM 06/20/15 Reported Levothyroxine Sodium 75 Mcg Tab 75 Mcg PO QAM 06/20/15 Reported Xifaxan (Rifaximin) 550 Mg Tab 550 Mg PO BID 05/31/15 Reported Mag-Ox (Magnesium Oxide) 400 Mg Tab 400 Mg PO TID 02/12/15 Reported Ranitidine HCl 150 Mg Tab 150 Mg PO BID 10/30/14 Reported Probiotic (Probiotic Product) 1 Cap Cap 1 Cap PO DAILY 12/13/13 Reported Current Inpatient Medications Current Inpatient Medications Medications (Trade) Dose Ordered Sig/Danita Route Start Time Stop Time Status Last Admin Dose Admin Acetaminophen (Tylenol Tab) 650 mg Q4H PRN PO 02/28/17 16:45 03/30/17 16:44 Bismuth Subsalicylate (Kaopectate Liqd) 15 ml PRN PRN PO 02/28/17 16:45 03/30/17 16:44 Al Hydroxide/Mg Hydroxide (Maalox Susp) 30 ml Q4H PRN PO 02/28/17 16:45 03/30/17 16:44 Magnesium Hydroxide (Milk Of Magnesia Susp) 30 ml DAILY PRN PO 02/28/17 16:45 03/30/17 16:44 Sodium Chloride (Dade Nasal Mcgrady) PRN PRN NA 02/28/17 16:45 03/30/17 16:44 Miscellaneous Information (Consult Glycemic Management Pharmacy) 1 ea UD PRN N/A 02/28/17 18:37 03/30/17 18:36 Albuterol (Ventolin Hfa Inhaler) 2 puffs Q6H PRN INH 02/28/17 16:45 03/30/17 16:44 Bumetanide (Bumex Tab) 1 mg QAM PO 03/01/17 09:00 03/31/17 08:59 03/01/17 09:15 1 MG Cholecalciferol (Vitamin D Tab) 5,000 inter.unit DAILY PO 03/01/17 09:00 03/31/17 08:59 03/01/17 09:16 5,000 INTER.UNIT Epinephrine (Epipen) 0.3 mg UD PRN IM 02/28/17 16:45 03/30/17 16:44 Ferrous Sulfate (Feosol Tab) 325 mg QPM PO 02/28/17 21:00 03/30/17 20:59 02/28/17 20:52 325 MG Ibuprofen (Motrin Tab) 800 mg Q4 PRN PO 02/28/17 16:45 03/30/17 16:44 Levothyroxine Sodium (Synthroid Tab) 75 mcg DAILYBB PO 03/01/17 08:00 03/31/17 07:59 03/01/17 09:16 75 MCG Magnesium Oxide (Mag-Ox Tab) 400 mg TID PO 02/28/17 22:00 03/30/17 21:59 03/01/17 09:16 400 MG Oxcarbazepine (Trileptal Tab) 300 mg QAM PO 03/01/17 09:00 03/31/17 08:59 03/01/17 09:17 300 MG Oxcarbazepine (Trileptal Tab) 600 mg HS PO 02/28/17 22:00 03/30/17 21:59 02/28/17 20:52 600 MG Oxycodone HCl (Roxicodone Immediate Rel Tab) 5 mg Q8 PRN PO 02/28/17 16:45 03/14/17 16:44 03/01/17 10:07 5 MG Ranitidine HCl (zANTac TAB) 150 mg BID PO 02/28/17 22:00 03/30/17 21:59 03/01/17 09:16 150 MG Rifaximin (Xifaxan Tab) 550 mg BID PO 02/28/17 22:00 03/30/17 21:59 03/01/17 09:18 550 MG Spironolactone (Aldactone Tab) 25 mg QPM PO 02/28/17 21:00 03/30/17 20:59 02/28/17 20:51 25 MG Sumatriptan Succinate (Imitrex Tab) 100 mg UD PRN PO 02/28/17 16:45 03/30/17 16:44 Topiramate (Topamax Tab) 25 mg BID PO 02/28/17 22:00 03/30/17 21:59 03/01/17 09:17 25 MG Topiramate (Topamax Tab) 50 mg BID PO 02/28/17 22:00 03/30/17 21:59 03/01/17 09:17 50 MG Ascorbic Acid (Vitamin C Tab) 1,000 mg DAILY PO 03/01/17 09:00 03/31/17 08:59 03/01/17 09:16 1,000 MG Levetiracetam (Keppra Tab) 2,000 mg BID PO 02/28/17 22:00 03/30/17 21:59 03/01/17 09:17 2,000 MG Pantoprazole Sodium (Protonix Tab) 40 mg QAM PO 03/01/17 09:00 03/31/17 08:59 03/01/17 09:16 40 MG Lactobacillus Acidophilus (Floranex Tab) 1 tab DAILY PO 03/01/17 09:00 03/31/17 08:59 03/01/17 09:16 1 TAB Zinc Sulfate (Zinc Sulfate Cap) 220 mg BID PO 02/28/17 22:00 03/30/17 21:59 03/01/17 09:16 220 MG Lactulose (Chronulac Syrup) 20 gm TID PO 02/28/17 22:00 03/30/17 21:59 03/01/17 09:16 20 GM Insulin Glargine (Lantus Solostar Pen) 38 units QAM SC 03/01/17 09:00 03/31/17 08:59 03/01/17 09:22 38 UNITS Insulin Aspart (novoLOG ASPART) SLIDING SCALE ACHS SC 02/28/17 17:15 03/30/17 17:14 03/01/17 09:31 5 UNITS Miscellaneous Information (Order Awaiting Action) 1 ea QS N/A 03/01/17 00:00 03/31/17 00:00 Diclofenac Sodium (Voltaren 1% Top Gel) 1 appln QID PRN EXT 02/28/17 20:45 03/30/17 20:44 Hydroxyzine HCl (Vistaril Tab) 50 mg HSZ PRN PO 02/28/17 22:45 03/30/17 22:44 02/28/17 23:11 50 MG Mirtazapine (Remeron Tab) 45 mg HS PO 03/01/17 22:00 03/30/17 21:59 Physical Exam Date Time Temp Pulse Resp B/P (MAP) Pulse Ox O2 Delivery O2 Flow Rate FiO2 03/01/17 06:56 02/28/17 17:37 37.0 55 18 123/68 General Appearance: no apparent distress Head: normocephalic, atraumatic Eyes: normal inspection, PERRL ENT: hearing grossly normal Neck: supple Respiratory/Chest: lungs clear, no respiratory distress, no accessory muscle use Cardiovascular: regular rate, rhythm Abdomen/GI: normal bowel sounds, non tender, soft Back: normal inspection Extremities/Musculoskelatal: no calf tenderness, no pedal edema Neurologic/Psych: alert, oriented x 3, + depressed affect Skin: normal color, warm/dry, no rash Laboratory Results Last 24 Hours Test 02/28/17 17:01 02/28/17 17:13 02/28/17 20:47 03/01/17 07:39 Ammonia 130.1 umol/L Bedside Glucose 202 mg/dl 149 mg/dl White Blood Count 3.17 K/uL Red Blood Count 2.63 M/uL Hemoglobin 9.5 g/dL Hematocrit 26.5 % Mean Corpuscular Volume 100.8 fL Mean Corpuscular Hemoglobin 36.1 pg Mean Corpuscular Hemoglobin Concent 35.8 g/dl Platelet Count 83 K/uL Mean Platelet Volume 10.3 fL Neutrophils (%) (Auto) 47.0 % Lymphocytes (%) (Auto) 35.3 % Monocytes (%) (Auto) 11.0 % Eosinophils (%) (Auto) 5.4 % Basophils (%) (Auto) 1.3 % Neutrophils # (Auto) 1.49 K/uL Lymphocytes # (Auto) 1.12 K/uL Monocytes # (Auto) 0.35 K/uL Eosinophils # (Auto) 0.17 K/uL Basophils # (Auto) 0.04 K/uL RDW Standard Deviation 48.3 fL RDW Coefficient of Variation 13.3 % Immature Granulocyte % (Auto) 0.0 % Immature Granulocyte # (Auto) 0.00 K/uL Ovalocytes 1+ Test 03/01/17 07:42 Bedside Glucose 112 mg/dl Assessment & Plan 50 y/o female, with PMHx liver cirrhosis, T2DM, hypothyroidism, seizure disorder , migraines, asthma, parkinsonism, bipolar disorder, chronic pancytopenia, and GERD, who was admitted to [facility] for suicidal ideations. Hospitalist team was consulted for elevated ammonia. Liver cirrhosis- STABLE: - Chronically elevated ammonia level- 130 on 02/28, at baseline mentation- follow ammonia level - Lactulose 20 g TID- titrate PRN for 2-3 BMs per day - Continue Rifaximin 550 mg BID, Aldactone 25 mg afternoon Bipolar disorder, depression w/ suicidal ideations: Management as per psychiatry Cold-like symptoms: Mucinex 600 mg BID Seizure disorder, parkinsonism- follows w/ Dr. Gonzalez: Continue Keppra 2000 mg BID, Continue Trileptal 300 mg QAM and 600 mg HS, Topamax 75 mg BID T2DM: - Continue Lantus 38 units daily - BSG ACHS w/ sliding insulin scale - Pharmacy consulted for diabetic management Hypothyroidism: Synthroid 75 mcg daily Pancytopenia, chronic- STABLE: Ferrous Sulfate 325 mg PO daily Asthma: Continue Ventolin and Spiriva h/o migraines: Imitrex PRN GERD: Protonix 40 mg daily + Zantac Code Status: LEVEL I, FULL Dispo: U Attending Attestation: Pt seen/examined, chart reviewed, care plan d/w GHULAM Jade Galen. I agree w/ the tai components of her consult documentation. 51yo female with cirrhosis 2nd to STEVE and bipolar disorder - well known to the hospitalist service due to numerous admissions for hepatic encephalopathy - now in the [facility] due to depression with suicidal ideation/intent. Consulted by psychiatry for management of elevated ammonia levels. Typically Ms. Munson runs about 80 to the low 100s at baseline. Today she kept her eyes closed during the encounter but answered all questions, was a/o x 3, and knew the dose of the remeron which was recently adjusted by Dr. Saucedo. She complaints of ongoing poor sleep & myalgias. PMH, PHS, allergies, meds, sochx, famhx, ros - reviewed VSS afebrile gen - flat affect, eyes closed, but follows all directions and is a/o x 3 neck - no JVD mouth - MMM heart - RRR lungs - CTA b/l abd - soft, NT, ND, no HSM ext - no edema neuro - no asterixis ammonia 130 A/P: 1. elevated ammonia level - Ms. Munson typically runs, at baseline, about 80 to the low 100s. Although the level today is above baseline she otherwise does not have symptoms/ signs of hepatic encephalopathy. With that said she is at risk of developing such. Would increase lactulose to 30 TID to produce 2-3 BMs/day. Cont rifaximin 550mg BID. Ammonia level in am. There is a possibility that changes in her psychotropic meds could lead to worsening ammonia levels. 2. asthma - she requested that we restart her symbicort 160 mcg conc. This was done. She also has ventolin available prn. At this time she is not in exacerbation. 3. T2DM - management per pharmacy. other plans per Galen's note thank you for this consult; will follow with you Sammy Haney MD
[2017-03-01 12:05] VITALS: BP 147/79; PULSE 86; TEMP 36.6
[2017-03-01] MEDS ORDERED: SPIRONOLACTONE 25 MG TAB PO ONE (14:35)
[2017-03-01] MEDS: BUDESONIDE/FORMOTEROL FUMARATE 160/4.5 60 PUFFS/INHALER INH SCH ×2 (15:30→21:35)
[2017-03-01] MEDS: GUAIFENESIN 600 MG TABCR PO SCH (21:20)
[2017-03-01] MEDS: FERROUS SULFATE 325 MG TAB PO SCH (21:20)
[2017-03-01] MEDS: MIRTAZAPINE TAB 15 MG TAB PO SCH (21:20)
[2017-03-01] MEDS: LACTULOSE SYRUP 30 GM/45 ML UDP PO SCH (21:21)
[2017-03-01] MEDS: hydrOXYzine HCL 25 MG TAB PO PRN ×2 (21:36→22:34)
[2017-03-02] MEDS: OXYCODONE HCL IR 5 MG TAB (IMMEDIATE RELEASE) PO PRN ×2 (01:11→13:48)
[2017-03-02] MEDS: hydrOXYzine HCL 25 MG TAB PO PRN (01:28)
[2017-03-02 07:51] LABS: HEMATOCRIT 27.4 % (37-47); MEAN CELL VOLUME 102.2 fL (80-100); MEAN CORPUSCULAR HEMOGLOBIN 35.8 pg (25-34); RED BLOOD COUNT 2.68 M/uL (4.2-5.4); WHITE BLOOD COUNT 3.96 K/uL (4.8-10.8)
--- NOTE | 2017-03-02 08:02 | Psychiatric Progress Notes ---
Progress Note Date of Service Mar 02, 2017. Interval History Charline is a 51-year-old white female who lives in [place] with her , has a history of depression, borderline personality disorder, cirrhosis , diabetes, seizure disorder, and several other medical conditions who presented to the emergency room 02/25/17 with suicidal ideation to overdose on her insulin. She was admitted medically due to hyperammonemia due to poor compliance with medications, and was medically cleared and transferred to the [facility] voluntarily on 02/28/17. Chief Complaint "Tired". Subjective Patient was seen & assessed interval progress reviewed with Nursing. Staff report she refuses to use her call markham and instead yells out to staff. She slept 4.5 hours overnight with hydroxyzine 50mg x 2, and wanted additional sleep meds. Her visited and a meeting was scheduled for Friday. She rated her mood a 5 out of 10. Today, she is seen in her room, where she is still in bed missing breakfast. She states that she slept poorly overnight despite getting hydroxyzine, and is asking to return to trazodone 300 mg, which she states she was on in the past. She reports ongoing depression and anxiety, but states suicidal thoughts have improved, and she is not having them so far this morning. She had her bring in her bottle of Trileptal, as apparently she is getting 150 mg tablets here, and would prefer to get the 300 mg tablets so that she has fewer pills to take. Also confirms that her Trileptal dose on her admission med rec is correct, as the bottle states 600 mg twice a day, but she is taking 300 every morning and 600 daily at bedtime-she states that Dr. Gonzalez's office instructed her to decrease the dose. Sleep Information Total Hours of Sleep: 4.50 Meal Information Percent of Breakfast Consumed: 100 Percent of Lunch Consumed: 100 Percent of Dinner Consumed: 100 Mental Status Exam During interview pt is: cooperative, other (in bed, somnolent, appears sedated) Appearance: disheveled, other (overweight) Motor behavior is: no abnormal motor movements Speech: other (slowed, delayed, mildly slurred) Affect: depressed, constricted, other (sedated/somnolent) Mood is: depressed, anxious Thought process: goal directed Thought content: preoccupation (with sleep medication) Suicidal thought are: present (but improving, last had suicidal thoughts yesterday) Homicidal thoughts are: denied Hallucinations: denies auditory, denies visual Cognition: memory grossly intact, attention grossly intact, language grossly intact Intelligence estimated to be: average Insight: impaired Judgement: impaired Medication Trials (1) Past Psych Medications Include but not limited to: Pristiq - stopped in September Trazodone - stopped in September Citalopram Paroxetine Sertraline Aripiprazole - may have caused seizures Risperidone Quetiapine Elavil Last Edited By: Yodit Saucedo on Mar 02, 2017 09:39 Impression 51-year-old female with a history of depression and borderline personality disorder, poor treatment adherence, and multiple medical problems who is admitted for depression with thoughts to overdose on insulin. She is on many medications, including 3 seizure medications, insulin, and oxycodone; mirtazapine is the only medication prescribed by her psychiatric PA. When she was last seen in the outpatient clinic a week prior to admission, she was requesting sleep medication, but was encouraged to address her sleep through behavioral techniques first, as she admitted to sleeping throughout the day and then being unable to fall asleep at night. She got hydroxyzine here for sleep, which she felt was helpful the first night, but feels it was less helpful last night, and now wants to try trazodone. She will need staff encouragement to be out of bed, awake, and active during the day to allow for optimal sleep at night. I'm hesitant to prescribe her an additional medication for sleep as an outpatient given her history of falls, polypharmacy, and daytime sedation, and will need to continue to assess this and coordinate care with her outpatient provider prior to discharge. She also requested adjustment of medication to target mood, and mirtazapine was increased to 45 mg daily at bedtime. She has numerous poorly controlled medical conditions, so we will need to follow her glucose, liver function, and CBC closely here, and appreciate the hospitalist team's recommendations Plan (1) Depression 03/01- increase mirtazapine to 45 mg daily at bedtime to target mood. - Will need to coordinate care with GHULAM Lindsay, at [facility] on Friday regarding medications, specifically the patient's request for sleep medications. - Will offer hydroxyzine 50 mg daily at bedtime when necessary insomnia here, but the patient has multiple sedating medications and her sleep issue is likely primarily behavioral, so will attempt to use this only in the short-term. Advised her that she will need to be up and out of bed during the day and avoid naps in order to allow for optimal sleep at night. - Family meeting with . - Explore ways to increase outpatient supports (refer her for blended behavioral health case manager and psych rehabilitation). - Every 15 minute checks for safety. - Attend groups and work on healthy coping skills and a discharge safety plan ( would recommend that all medications be locked and secured so she does not have access to large amounts to overdose on). 03/02 - Encourage the patient to be out of bed and actively participating in treatment during the day, both to get the most out of treatment here, and to improve nighttime sleep. - Family meeting scheduled with for Friday. - Discontinue hydroxyzine and try trazodone 50 mg daily at bedtime when necessary insomnia, may repeat 1 if needed. Coordinate care with Lisa Barrera at [facility] tomorrow when she is back in the office. (2) Borderline personality disorder Clear and consistent boundaries, coordinate with outpatient therapist and psychiatric PA. (3) Diabetes Glycemic control consult for assistance in managing diabetes. Continue 38 units Lantus every morning and sliding scale insulin. (4) Hyperammonemia Ammonia was 280 on admission, had been trending down on the medical floor, was 110 on 02/26/2017, and last evening had come up to 130.1. She is somnolent, and I'm concerned about her chronic hepatic encephalopathy, so we will consult medicine for recommendations. 03/02 - appreciate Ms. Michelle and Dr. Segura's recommendations. Lactulose has been increased. Baseline ammonia is 80-low 100s. (5) Pancytopenia 03/01: Follow daily CBCs: WBC 3.17, RBC 2.63, Hbg 9.5, Hct 26.5, Plt 83 (6) Chronic anemia Follow red blood cell count and consult medicine if needed. (7) Seizure Continue home doses of oxcarbazepine 300 mg every morning and 600 mg daily at bedtime, topiramate 75 mg twice a day, and Keppra 2000 mg twice a day. (8) Peptic ulcer disease Continue home meds. (9) History of hepatic encephalopathy Continue rifaximin. (10) Hypothyroidism Continue home dose of levothyroxine. Discharge / Aftercare Planning Psychiatrist: Name: GHULAM Lindsay Therapist: Name: Terry Hernandez Visit Code E&M Code: 79236 Inventory Assets Strengths: , supportive , has housing and outpatient providers Needs: Improved adherence with treatment recommendations, increased outpatient psychiatric supports (case management and psych rehabilitation). Risk Factors Assessment : Yes /single/: No Higher / Fall in social status: No Health problems: Yes Mental Health Diagnoses: Yes Substance use disorders: No Previous attempt: Yes Previous psychiatric stay: Yes Hopelessness: No Smoker: No Protective Factors Assessment Bahai beliefs: Yes : Yes Responsible for young children: No Employed: No Stable relationships: No Supportive family: Yes Good rapport with provider: Yes Data Vital Signs Last 24 Hrs: Date Time Temp Pulse Resp B/P (MAP) Pulse Ox O2 Delivery O2 Flow Rate FiO2 03/02/17 06:59 03/01/17 12:05 36.6 86 16 147/79 Meds Administered Last 24 Hrs: Meds Administered (Past 24Hrs) Medications (Trade) Dose Ordered Sig/Danita Route Start Time Stop Time Status Last Admin Dose Admin Bumetanide (Bumex Tab) 1 mg QAM PO 03/01/17 09:00 03/31/17 08:59 03/01/17 09:15 1 MG Cholecalciferol (Vitamin D Tab) 5,000 inter.unit DAILY PO 03/01/17 09:00 03/31/17 08:59 03/01/17 09:16 5,000 INTER.UNIT Ferrous Sulfate (Feosol Tab) 325 mg QPM PO 02/28/17 21:00 03/30/17 20:59 03/01/17 21:20 325 MG Levothyroxine Sodium (Synthroid Tab) 75 mcg DAILYBB PO 03/01/17 08:00 03/31/17 07:59 03/01/17 09:16 75 MCG Magnesium Oxide (Mag-Ox Tab) 400 mg TID PO 02/28/17 22:00 03/30/17 21:59 03/01/17 21:21 400 MG Oxcarbazepine (Trileptal Tab) 300 mg QAM PO 03/01/17 09:00 03/31/17 08:59 03/01/17 09:17 300 MG Oxcarbazepine (Trileptal Tab) 600 mg HS PO 02/28/17 22:00 03/30/17 21:59 03/01/17 21:20 600 MG Oxycodone HCl (Roxicodone Immediate Rel Tab) 5 mg Q8 PRN PO 02/28/17 16:45 03/14/17 16:44 03/02/17 01:11 5 MG Ranitidine HCl (zANTac TAB) 150 mg BID PO 02/28/17 22:00 03/30/17 21:59 03/01/17 21:19 150 MG Rifaximin (Xifaxan Tab) 550 mg BID PO 02/28/17 22:00 03/30/17 21:59 03/01/17 21:19 550 MG Spironolactone (Aldactone Tab) 25 mg QPM PO 02/28/17 21:00 03/01/17 14:37 DC 02/28/17 20:51 25 MG Topiramate (Topamax Tab) 25 mg BID PO 02/28/17 22:00 03/30/17 21:59 03/01/17 21:20 25 MG Topiramate (Topamax Tab) 50 mg BID PO 02/28/17 22:00 03/30/17 21:59 03/01/17 21:20 50 MG Ascorbic Acid (Vitamin C Tab) 1,000 mg DAILY PO 03/01/17 09:00 03/31/17 08:59 03/01/17 09:16 1,000 MG Levetiracetam (Keppra Tab) 2,000 mg BID PO 02/28/17 22:00 03/30/17 21:59 03/01/17 21:21 2,000 MG Pantoprazole Sodium (Protonix Tab) 40 mg QAM PO 03/01/17 09:00 03/31/17 08:59 03/01/17 09:16 40 MG Lactobacillus Acidophilus (Floranex Tab) 1 tab DAILY PO 03/01/17 09:00 03/31/17 08:59 03/01/17 09:16 1 TAB Zinc Sulfate (Zinc Sulfate Cap) 220 mg BID PO 02/28/17 22:00 03/30/17 21:59 03/01/17 21:19 220 MG Mirtazapine (Remeron Tab) 30 mg HS PO 02/28/17 22:00 03/01/17 09:18 DC 02/28/17 20:50 30 MG Lactulose (Chronulac Syrup) 20 gm TID PO 02/28/17 22:00 03/01/17 15:15 DC 03/01/17 13:46 20 GM Insulin Glargine (Lantus Solostar Pen) 38 units QAM SC 03/01/17 09:00 03/31/17 08:59 03/01/17 09:22 38 UNITS Insulin Aspart (novoLOG ASPART) SLIDING SCALE ACHS SC 02/28/17 17:15 03/30/17 17:14 03/01/17 18:35 15 UNITS Hydroxyzine HCl (Vistaril Tab) 50 mg HSZ PRN PO 02/28/17 22:45 03/30/17 22:44 03/01/17 22:34 50 MG Mirtazapine (Remeron Tab) 45 mg HS PO 03/01/17 22:00 03/30/17 21:59 03/01/17 21:20 45 MG Guaifenesin (Mucinex Contr Rel Tab) 600 mg Q12 PO 03/01/17 21:00 03/31/17 20:59 03/01/17 21:20 600 MG Spironolactone (Aldactone Tab) 25 mg 1435 ONCE PO 03/01/17 14:35 03/01/17 14:40 DC 03/01/17 15:02 25 MG Lactulose (Chronulac Syrup) 30 gm TID PO 03/01/17 22:00 03/30/17 21:59 03/01/17 21:21 30 GM Lab Results Last 24 Hrs: Last 24 Hours Test 03/01/17 12:09 03/01/17 17:19 03/01/17 21:05 03/02/17 07:19 Bedside Glucose 181 mg/dl 168 mg/dl 170 mg/dl White Blood Count 3.96 K/uL Red Blood Count 2.68 M/uL Hemoglobin 9.6 g/dL Hematocrit 27.4 % Mean Corpuscular Volume 102.2 fL Mean Corpuscular Hemoglobin 35.8 pg Mean Corpuscular Hemoglobin Concent 35.0 g/dl RDW Standard Deviation 48.6 fL RDW Coefficient of Variation 13.6 % Ammonia 103.0 umol/L Problem Qualifiers (1) Depression: Depression Type: major depressive disorder Major depression recurrence: recurrent Active/Remission status: currently active Major depression episode severity: severe Psychotic features: without psychotic features Qualified Codes: F33.2 - Major depressive disorder, recurrent severe without psychotic features
[2017-03-02 08:20] LABS: MEAN PLATELET VOLUME 10.4 fL (7.4-10.4); PLATELET COUNT 96 K/uL (130-400)
[2017-03-02 08:30] LABS: BASO % 0.5 %; BASO ABS # 0.02 K/uL (0-0.2); COMPLETE YES; EOS % 4.3 %; LYMPH % 36.4 %; LYMPH ABS # 1.44 K/uL (1.2-3.4); MONO % 8.8 %; OVALOCYTES 1+
[2017-03-02] MEDS: OXCARBAZEPINE 150 MG TAB PO SCH ×2 (09:00→09:59)
[2017-03-02] MEDS: BUMETANIDE 1 MG TAB PO SCH (09:39)
[2017-03-02] MEDS: RIFAXIMIN TAB 550 MG TAB PO SCH ×2 (09:40→21:03)
[2017-03-02] MEDS: GUAIFENESIN 600 MG TABCR PO SCH ×2 (09:40→21:03)
[2017-03-02] MEDS: CHOLECALCIFEROL 1000 INTER.UNIT TAB PO SCH (09:40)
[2017-03-02] MEDS: RANITIDINE HCL 150 MG TAB PO SCH ×2 (09:40→21:03)
[2017-03-02] MEDS: LACTOBACILLUS ACIDOPHILUS (FLORANEX) TAB PO SCH (09:40)
[2017-03-02] MEDS: ZINC SULFATE 220 MG CAP PO SCH ×2 (09:40→21:04)
[2017-03-02] MEDS: PANTOprazole SOD 40 MG TAB PO SCH (09:40)
[2017-03-02] MEDS: TOPIRAMATE 50 MG TAB PO SCH ×2 (09:41→21:04)
[2017-03-02] MEDS: TOPIRAMATE 25 MG TAB PO SCH ×2 (09:41→21:04)
[2017-03-02] MEDS: MAGNESIUM OXIDE 400 MG TAB PO SCH ×3 (09:41→21:03)
[2017-03-02] MEDS: LEVETIRACETAM 500 MG TAB PO SCH (09:41)
[2017-03-02] MEDS: ASCORBIC ACID 500 MG TAB PO SCH (09:41)
[2017-03-02] MEDS: LEVOTHYROXINE 75 MCG TAB PO SCH (09:41)
[2017-03-02] MEDS: BUDESONIDE/FORMOTEROL FUMARATE 160/4.5 60 PUFFS/INHALER INH SCH ×2 (09:41→21:27)
[2017-03-02] MEDS: LACTULOSE SYRUP 30 GM/45 ML UDP PO SCH ×3 (09:42→21:04)
[2017-03-02] MEDS ORDERED: NON-FORMULARY MEDICATION SCH (09:45)
[2017-03-02] MEDS: INSULIN ASPART 100 UNITS/ML 3 ML PEN SC SCH ×4 (09:53→21:13)
--- NOTE | 2017-03-02 10:12 | Hospitalist Progress Note ---
Hospitalist Progress Note Date of Service Mar 02, 2017. (Jade Aaron ., PA-C) Subjective Pt evaluation today including: conversation w/ patient, physical exam, lab review, review of inpatient medication list Voiding: no voiding problems Met w/ patient at common area in MHU per patient request. Sitting on couch, no acute distress, alert/oriented x3. States diffuse chronic pain is currently at baseline. Decreased appetite. Denies having BM but 2 documented yesterday. Cough/cold-like symptoms are improving. Patient denies any fever, chills, sweats, lightheadedness, dizziness, vision changes, CP, palpitations, edema, SOB, wheezing, abdominal pain, nausea, vomiting, diarrhea, urinary symptoms, melena, numbness/tingling, weakness, anxiety, active bleeding, or new skin discoloration/changes. (Jade Aaron ., PA-C) Medications Current Inpatient Medications Medications (Trade) Dose Ordered Sig/Danita Route Start Time Stop Time Status Last Admin Dose Admin Acetaminophen (Tylenol Tab) 650 mg Q4H PRN PO 02/28/17 16:45 03/30/17 16:44 Bismuth Subsalicylate (Kaopectate Liqd) 15 ml PRN PRN PO 02/28/17 16:45 03/30/17 16:44 Al Hydroxide/Mg Hydroxide (Maalox Susp) 30 ml Q4H PRN PO 02/28/17 16:45 03/30/17 16:44 Magnesium Hydroxide (Milk Of Magnesia Susp) 30 ml DAILY PRN PO 02/28/17 16:45 03/30/17 16:44 Sodium Chloride (Emmons Nasal [place]) PRN PRN NA 02/28/17 16:45 03/30/17 16:44 Miscellaneous Information (Consult Glycemic Management Pharmacy) 1 ea UD PRN N/A 02/28/17 18:37 03/30/17 18:36 Albuterol (Ventolin Hfa Inhaler) 2 puffs Q6H PRN INH 02/28/17 16:45 03/30/17 16:44 Bumetanide (Bumex Tab) 1 mg QAM PO 03/01/17 09:00 03/31/17 08:59 03/02/17 09:39 1 MG Cholecalciferol (Vitamin D Tab) 5,000 inter.unit DAILY PO 03/01/17 09:00 03/31/17 08:59 03/02/17 09:40 5,000 INTER.UNIT Epinephrine (Epipen) 0.3 mg UD PRN IM 02/28/17 16:45 03/30/17 16:44 Ferrous Sulfate (Feosol Tab) 325 mg QPM PO 02/28/17 21:00 03/30/17 20:59 03/01/17 21:20 325 MG Ibuprofen (Motrin Tab) 800 mg Q4 PRN PO 02/28/17 16:45 03/30/17 16:44 Levothyroxine Sodium (Synthroid Tab) 75 mcg DAILYBB PO 03/01/17 08:00 03/31/17 07:59 03/02/17 09:41 75 MCG Magnesium Oxide (Mag-Ox Tab) 400 mg TID PO 02/28/17 22:00 03/30/17 21:59 03/02/17 09:41 400 MG Oxcarbazepine (Trileptal Tab) 300 mg QAM PO 03/01/17 09:00 03/31/17 08:59 03/02/17 09:59 300 MG Oxcarbazepine (Trileptal Tab) 600 mg HS PO 02/28/17 22:00 03/30/17 21:59 03/01/17 21:20 600 MG Oxycodone HCl (Roxicodone Immediate Rel Tab) 5 mg Q8 PRN PO 02/28/17 16:45 03/14/17 16:44 03/02/17 01:11 5 MG Ranitidine HCl (zANTac TAB) 150 mg BID PO 02/28/17 22:00 03/30/17 21:59 03/02/17 09:40 150 MG Rifaximin (Xifaxan Tab) 550 mg BID PO 02/28/17 22:00 03/30/17 21:59 03/02/17 09:40 550 MG Sumatriptan Succinate (Imitrex Tab) 100 mg UD PRN PO 02/28/17 16:45 03/30/17 16:44 Topiramate (Topamax Tab) 25 mg BID PO 02/28/17 22:00 03/30/17 21:59 03/02/17 09:41 25 MG Topiramate (Topamax Tab) 50 mg BID PO 02/28/17 22:00 03/30/17 21:59 03/02/17 09:41 50 MG Ascorbic Acid (Vitamin C Tab) 1,000 mg DAILY PO 03/01/17 09:00 03/31/17 08:59 03/02/17 09:41 1,000 MG Levetiracetam (Keppra Tab) 2,000 mg BID PO 02/28/17 22:00 03/30/17 21:59 03/02/17 09:41 2,000 MG Pantoprazole Sodium (Protonix Tab) 40 mg QAM PO 03/01/17 09:00 03/31/17 08:59 03/02/17 09:40 40 MG Lactobacillus Acidophilus (Floranex Tab) 1 tab DAILY PO 03/01/17 09:00 03/31/17 08:59 03/02/17 09:40 1 TAB Zinc Sulfate (Zinc Sulfate Cap) 220 mg BID PO 02/28/17 22:00 03/30/17 21:59 03/02/17 09:40 220 MG Insulin Aspart (novoLOG ASPART) SLIDING SCALE ACHS SC 02/28/17 17:15 03/30/17 17:14 03/02/17 09:53 3 UNITS Miscellaneous Information (Order Awaiting Action) 1 ea QS N/A 03/01/17 00:00 03/31/17 00:00 Diclofenac Sodium (Voltaren 1% Top Gel) 1 appln QID PRN EXT 02/28/17 20:45 03/30/17 20:44 Mirtazapine (Remeron Tab) 45 mg HS PO 03/01/17 22:00 03/30/17 21:59 03/01/17 21:20 45 MG Guaifenesin (Mucinex Contr Rel Tab) 600 mg Q12 PO 03/01/17 21:00 03/31/17 20:59 03/02/17 09:40 600 MG Spironolactone (Aldactone Tab) 25 mg DAILY@1400 PO 03/02/17 14:00 04/01/17 13:59 Lactulose (Chronulac Syrup) 30 gm TID PO 03/01/17 22:00 03/30/17 21:59 03/02/17 09:42 30 GM Budesonide/ Formoterol Fumarate (Symbicort 160/ 4.5 Inh) 2 puffs BID INH 03/01/17 15:30 03/31/17 15:29 03/02/17 09:41 2 PUFFS Trazodone HCl (Desyrel Tab) 50 mg HS PRN PO 03/02/17 09:45 04/01/17 09:44 UNV Non-Formulary Medication 1 ea UD N/A 03/02/17 09:45 04/01/17 09:44 UNV Insulin Glargine (Toujeo Solostar) 38 units DAILY SC 03/02/17 10:00 04/01/17 09:59 (Jade Aaron, PA-C) Objective Vital Signs Date Time Temp Pulse Resp B/P (MAP) Pulse Ox O2 Delivery O2 Flow Rate FiO2 03/02/17 06:59 03/01/17 12:05 36.6 86 16 147/79 (Jade Aaron, PA-C) Physical Exam General Appearance: no apparent distress, + obese Eyes: normal inspection, PERRL ENT: hearing grossly normal Neck: supple Respiratory/Chest: lungs clear, no respiratory distress, no accessory muscle use Cardiovascular: regular rate, rhythm Abdomen: normal bowel sounds, non tender, soft Extremities: no pedal edema, no calf tenderness Neurologic/Psychiatric: alert, oriented x 3, + depressed affect Skin: normal color, warm/dry, no rash (Jade Aaron ., PA-C) Laboratory Results Last 24 Hours Test 03/01/17 12:09 03/01/17 17:19 03/01/17 21:05 03/02/17 07:19 Bedside Glucose 181 mg/dl 168 mg/dl 170 mg/dl White Blood Count 3.96 K/uL Red Blood Count 2.68 M/uL Hemoglobin 9.6 g/dL Hematocrit 27.4 % Mean Corpuscular Volume 102.2 fL Mean Corpuscular Hemoglobin 35.8 pg Mean Corpuscular Hemoglobin Concent 35.0 g/dl Platelet Count 96 K/uL Mean Platelet Volume 10.4 fL Neutrophils (%) (Auto) 50.0 % Lymphocytes (%) (Auto) 36.4 % Monocytes (%) (Auto) 8.8 % Eosinophils (%) (Auto) 4.3 % Basophils (%) (Auto) 0.5 % Neutrophils # (Auto) 1.98 K/uL Lymphocytes # (Auto) 1.44 K/uL Monocytes # (Auto) 0.35 K/uL Eosinophils # (Auto) 0.17 K/uL Basophils # (Auto) 0.02 K/uL RDW Standard Deviation 48.6 fL RDW Coefficient of Variation 13.6 % Immature Granulocyte % (Auto) 0.0 % Immature Granulocyte # (Auto) 0.00 K/uL Ovalocytes 1+ Ammonia 103.0 umol/L Test 03/02/17 07:29 Bedside Glucose 115 mg/dl (Jade Aaron PALindaC) Assessment and Plan 50 y/o female, with PMHx liver cirrhosis, T2DM, hypothyroidism, seizure disorder , migraines, asthma, parkinsonism, bipolar disorder, chronic pancytopenia, and GERD, who was admitted to [facility] for suicidal ideations. Hospitalist team was consulted for elevated ammonia. Liver cirrhosis- STABLE: - Chronically elevated ammonia level- 103 today, at baseline mentation- follow ammonia level - Lactulose 30 g TID- titrate PRN for 2-3 BMs per day - Continue Rifaximin 550 mg BID, Aldactone 25 mg afternoon Bipolar disorder, depression w/ suicidal ideations: Management as per psychiatry Cold-like symptoms: Mucinex 600 mg BID Seizure disorder, parkinsonism- follows w/ Dr. Gonzalez: Continue Keppra 2000 mg BID, Continue Trileptal 300 mg QAM and 600 mg HS, Topamax 75 mg BID T2DM: - Continue Toujeo 38 units daily - BSG ACHS w/ sliding insulin scale - Pharmacy consulted for diabetic management Hypothyroidism: Synthroid 75 mcg daily Pancytopenia, chronic- STABLE: Ferrous Sulfate 325 mg PO daily Asthma: Continue Ventolin, Symbicort h/o migraines: Imitrex PRN GERD: Protonix 40 mg daily + Zantac Code Status: LEVEL I, FULL Dispo: [facility]HU (Jade Aaron PA-C) Attending Attestation: Pt seen/examined, chart reviewed, care plan d/w GHULAM Aaron. I agree w/ the tai components of her documentation. Pt w/o complaints today except poor sleep. Feeling good. Having at least 2 bowel movements/day. No abd pain. Ambulating w/ walker ok. gen - nad heart - RRR, s1, s2, 1/6 GIOVANNI LSB lungs - CTA b/l abd - soft, NT ext - trace edema neuro - mild tremor (baseline) but no asterixis psych - a/o x 3 A/P: 1. cirrhosis 2nd to STEVE - compensated 2. hyperammonemia w/o hepatic encephalopathy - baseline ammonia level for Ms. Munson is about 80-120/130. Ammonia remains stable on rifaximin & lactulose. 3. bipolar d/o with depression - per psych 4. pancytopenia 2nd to #1 - stable 5. T2DM - controlled 6. HTN - controlled Sammy Haney MD (Sammy Haney MD)
[2017-03-02] MEDS: INSULIN GLARGINE 300 UNIT/ML SC SCH (10:21)
--- NOTE | 2017-03-02 13:03 | Pharmacy Progress Note ---
Pharmacy Glycemic Short Note 2 Date of Service Mar 02, 2017. Test 03/01/17 17:19 03/01/17 21:05 03/02/17 07:29 Bedside Glucose 168 mg/dl (70-90) 170 mg/dl (70-90) 115 mg/dl (70-90) OUTPATIENT ANTIDIABETIC REGIMEN: * Toujeo 38 units QAM * Humalog TIDM * A1c = 4.8 % 12/31/16 ASSESSMENT: * Pt admitted to [address] [place] [address] for bipolar disorder, depression with suicidal ideations * Blood sugars well controlled, pt requested using her own Toujeo, basal changed to patient's own Toujeo (non-formulary) today PLAN FOR INPATIENT GLYCEMIC CONTROL: * Basal insulin * Toujeo 38 units SQ daily * Bolus insulin * NovoLog per scale ACHS or Q6hrs while NPO * Goal Range: Low 110 mg/dL - High 140 mg/dL * Correction Factor: 20 mg/dL/unit * Nutritional / Prandial insulin per carb ratio of 1 unit per 6 grams CHO consumed PLAN FOR DISCHARGE: * Continue outpatient regimen
[2017-03-02] MEDS: SPIRONOLACTONE 25 MG TAB PO SCH (14:10)
[2017-03-02] MEDS: MIRTAZAPINE TAB 15 MG TAB PO SCH (21:03)
[2017-03-02] MEDS: TRAZODONE HCL 50 MG TAB PO PRN ×2 (21:04→22:23)
[2017-03-02] MEDS: FERROUS SULFATE 325 MG TAB PO SCH (21:04)
[2017-03-02] MEDS: LEVETIRACETAM PO SCH (21:05)
[2017-03-02] MEDS: OXCARBAZEPINE 300 MG PO SCH (21:06)
[2017-03-02] MEDS ORDERED: OXCARBAZEPINE 300 MG PO SCH (22:00)
[2017-03-02] MEDS ORDERED: LEVETIRACETAM 250 MG TAB PO SCH (22:00)
[2017-03-03 07:12] VITALS: BP_SYST 119; BP_SYST 127; BP_DIAS 73; BP_DIAS 76; PULSE 82; PULSE 83; TEMP 36.8
[2017-03-03] MEDS: LEVOTHYROXINE 75 MCG TAB PO SCH (07:34)
[2017-03-03] MEDS: SUMATRIPTAN SUCC TAB 100 MG TAB PO PRN (07:36)
[2017-03-03 08:36] LABS: HEMATOCRIT 27.8 % (37-47); MEAN CELL VOLUME 102.2 fL (80-100); MEAN CORPUSCULAR HGB CONC 35.3 g/dl (32-36); RED BLOOD COUNT 2.72 M/uL (4.2-5.4); WHITE BLOOD COUNT 3.93 K/uL (4.8-10.8)
[2017-03-03] MEDS: BUMETANIDE 1 MG TAB PO SCH (08:39)
[2017-03-03] MEDS: LACTULOSE SYRUP 30 GM/45 ML UDP PO SCH ×3 (08:39→21:27)
[2017-03-03] MEDS: LACTOBACILLUS ACIDOPHILUS (FLORANEX) TAB PO SCH (08:39)
[2017-03-03] MEDS: MAGNESIUM OXIDE 400 MG TAB PO SCH ×3 (08:40→21:32)
[2017-03-03] MEDS: GUAIFENESIN 600 MG TABCR PO SCH ×2 (08:40→21:25)
[2017-03-03] MEDS: PANTOprazole SOD 40 MG TAB PO SCH (08:40)
[2017-03-03] MEDS: LEVETIRACETAM PO SCH ×2 (08:40→21:31)
[2017-03-03] MEDS: TOPIRAMATE 25 MG TAB PO SCH ×2 (08:41→21:33)
[2017-03-03] MEDS: TOPIRAMATE 50 MG TAB PO SCH ×2 (08:41→21:34)
[2017-03-03] MEDS: ASCORBIC ACID 500 MG TAB PO SCH (08:42)
[2017-03-03] MEDS: OXCARBAZEPINE 300 MG PO SCH ×2 (08:42→21:34)
[2017-03-03] MEDS: ZINC SULFATE 220 MG CAP PO SCH ×2 (08:43→21:35)
[2017-03-03] MEDS: CHOLECALCIFEROL 1000 INTER.UNIT TAB PO SCH (08:43)
[2017-03-03] MEDS: RANITIDINE HCL 150 MG TAB PO SCH ×2 (08:43→21:35)
[2017-03-03] MEDS: RIFAXIMIN TAB 550 MG TAB PO SCH ×2 (08:43→21:34)
[2017-03-03] MEDS: BUDESONIDE/FORMOTEROL FUMARATE 160/4.5 60 PUFFS/INHALER INH SCH ×2 (08:50→21:26)
[2017-03-03 08:59] LABS: MEAN PLATELET VOLUME 10.6 fL (7.4-10.4); PLATELET COUNT 89 K/uL (130-400)
[2017-03-03] MEDS: INSULIN GLARGINE 300 UNIT/ML SC SCH (09:12)
[2017-03-03] MEDS: INSULIN ASPART 100 UNITS/ML 3 ML PEN SC SCH ×4 (09:13→21:45)
[2017-03-03 09:20] LABS: BASO % 0.8 %; BASO ABS # 0.03 K/uL (0-0.2); COMPLETE YES; EOS % 3.8 %; IG% 0.3 %; LYMPH ABS # 1.18 K/uL (1.2-3.4); MONO % 9.4 %; NEUT % 55.7 %
--- NOTE | 2017-03-03 09:58 | Pharmacy Progress Note ---
Pharmacy Glycemic Short Note 2 Date of Service Mar 03, 2017. ASSESSMENT: * Ms. uMnson received 77 units of insulin yesterday w/ BSGs ranging from 115-232 mg/dL in the past 24 hours * No changes to causes of insulin resistance * Fasting BSG within range * "Postprandial" BSGs elevated, especially in the last 24 hours * Will plan to tighten the CR further to provide additional prandial coverage PLAN FOR INPATIENT GLYCEMIC CONTROL: * Continue Toujeo (patient's own) 38 units qAM * Continue Novolog ACHS * Goal 110-140 * CF 20 * TIGHTEN CR to 1 unit per 5 gm CHO consumed
--- NOTE | 2017-03-03 10:13 | Psychiatric Progress Notes ---
Progress Note Date of Service Mar 03, 2017. Interval History Charline is a 51-year-old white female who lives in [place] with her , has a history of depression, borderline personality disorder, cirrhosis , diabetes, seizure disorder, and several other medical conditions who presented to the emergency room 02/25/17 with suicidal ideation to overdose on her insulin. She was admitted medically due to hyperammonemia due to poor compliance with medications, and was medically cleared and transferred to the [facility] voluntarily on 02/28/17. Chief Complaint "Briana hopeful". Subjective Patient was seen & assessed interval progress reviewed with treatment team. Staff has been attending unit programming, and spent some of her free time out of her room socializing with peers. She told staff she was upset with her for telling some of their friends that she was hospitalized for suicidality. She stated that her suicidal thoughts have improved and that she is feeling safe. She has been able to do more things on her own and is not asking staff for as much assistance with daily tasks. Affect is brighter. She slept well with trazodone 50 mg 2 doses which was started last night. Today, she is seen in her room where she is still in bed. She keeps her eyes closed throughout the assessment. She states that mood is improved, and she feels "briana hopeful," has not had suicidal thoughts in a couple of days, and wants to start working on discharge planning. She states that she and her had a plan whereby he would monitor her medications, but they do not keep her medications locked, so she still has access to all of them. We discussed recommendations that all of the medications in the home be locked and secured so that she will have access with them, both due to her past suicidal thoughts with a planned overdose and also to her overusing her medications and taking more than is prescribed. We reviewed her home medications, specifically oxycodone, as she reported that she is prescribed this up to 3 times a day, but review of PDMP shows that her last prescription was only for 7 days on 2016 from the hospitalist, and that she is not being prescribed this medication by her outpatient physician. She states that she has been taking 1 tablet of oxycodone a day, and claims that she still has some left, although if she received 21 tablets at the beginning of December, she would've run out before the end of the month. She was advised that we'll be discontinuing this medication, as it may be contributing to oversedation. She states that despite her improved mood, she wants to switch back to sertraline, which she says she was on in the past and did well on. She cannot really explain why she wants this medication change, other than to say "I just don't like Remeron, the fact that its use as an antidepressant and for sleep." Attempted to explore this, and questioned why she would not want to take a medication that targets two of her most concerning symptoms, but she could not explain this further. I advised her that I would not recommend changing her antidepressant now, as we are nearing discharge and she is improving, but agreed to call her outpatient PA , Lisa Barrera, to discuss her requests as well as the sleep medication issue. Sleep Information Total Hours of Sleep: 7.75 Meal Information Percent of Breakfast Consumed: 100 Percent of Lunch Consumed: 100 Percent of Dinner Consumed: 100 Mental Status Exam During interview pt is: cooperative, other (in bed, appears somewhat sedated, but is able to answer questions appropriately) Appearance: disheveled, other (overweight) Eye contact is: poor (keeps eyes closed throughout the interaction) Motor behavior is: no abnormal motor movements Speech: normal in rate, rhythm & volume (slightly slowed) Affect: constricted, other (sedated/somnolent) Mood is: other ("briana hopeful") Thought process: goal directed Thought content: preoccupation (with medications) Suicidal thought are: denied Homicidal thoughts are: denied Hallucinations: denies auditory, denies visual Cognition: memory grossly intact, attention grossly intact, language grossly intact Intelligence estimated to be: average Insight: impaired Judgement: impaired Medication Trials (1) Past Psych Medications Include but not limited to: Pristiq - stopped in September Trazodone - stopped in September Citalopram Paroxetine Sertraline Aripiprazole - may have caused seizures Risperidone Quetiapine Elavil Last Edited By: Yodit Saucedo on Mar 02, 2017 09:39 Impression 51-year-old female with a history of depression and borderline personality disorder, poor treatment adherence, and multiple medical problems who is admitted for depression with thoughts to overdose on insulin. She is on many medications, including 3 seizure medications, insulin, and oxycodone; mirtazapine is the only medication prescribed by her psychiatric PA. When she was last seen in the outpatient clinic a week prior to admission, she was requesting sleep medication, but was encouraged to address her sleep through behavioral techniques first, as she admitted to sleeping throughout the day and then being unable to fall asleep at night. She tried hydroxyzine here for sleep , which she felt was helpful the first night, but feels it was less helpful last night, so then asked to try trazodone. She will need staff encouragement to be out of bed, awake, and active during the day to allow for optimal sleep at night. Although I am hesitant to prescribe her an additional medication for sleep as an outpatient given her history of falls, polypharmacy, and daytime sedation, she has had some benefit from trazodone, and will need to coordinate care with her outpatient provider prior to discharge. She also requested adjustment of medication to target mood, and mirtazapine was increased to 45 mg daily at bedtime. She has numerous poorly controlled medical conditions, so we will need to follow her glucose, liver function, and CBC closely here, and appreciate the hospitalist team's recommendations Plan (1) Depression 03/01- increase mirtazapine to 45 mg daily at bedtime to target mood. - Will need to coordinate care with GHULAM Lindsay, at [facility] on Friday regarding medications, specifically the patient's request for sleep medications. - Will offer hydroxyzine 50 mg daily at bedtime when necessary insomnia here, but the patient has multiple sedating medications and her sleep issue is likely primarily behavioral, so will attempt to use this only in the short-term. Advised her that she will need to be up and out of bed during the day and avoid naps in order to allow for optimal sleep at night. - Family meeting with . - Explore ways to increase outpatient supports (refer her for blended classification case manager and psych rehabilitation). - Every 15 minute checks for safety. - Attend groups and work on healthy coping skills and a discharge safety plan ( would recommend that all medications be locked and secured so she does not have access to large amounts to overdose on). 03/02 - Encourage the patient to be out of bed and actively participating in treatment during the day, both to get the most out of treatment here, and to improve nighttime sleep. - Family meeting scheduled with for Friday. - Discontinue hydroxyzine and try trazodone 50 mg daily at bedtime when necessary insomnia, may repeat 1 if needed. Coordinate care with Lisa Barrera at [facility] tomorrow when she is back in the office. 03/03 - Continue mirtazapine 45 mg daily at bedtime, and contacted outpatient psychiatric PA to coordinate care - left message with her clinic staff. - Patient is asking to be switched from mirtazapine to sertraline, but advised her that as her symptoms are improving on her current regimen, I wouldn't recommend changes just prior to discharge, and that she should address this with her outpatient provider. - Continue trazodone 50 mg daily at bedtime when necessary, may repeat 1 if needed. - Family meeting with today - recommend that all medications in the home because locked and secured, and that he dispense them to the patient daily to decrease risk of overdose and overuse of medications. (2) Borderline personality disorder Clear and consistent boundaries, coordinate with outpatient therapist and psychiatric PA. (3) Diabetes Glycemic control consult for assistance in managing diabetes. Continue 38 units Lantus every morning and sliding scale insulin. (4) Hyperammonemia Ammonia was 280 on admission, had been trending down on the medical floor, was 110 on 02/26/2017, and last evening had come up to 130.1. She is somnolent, and I'm concerned about her chronic hepatic encephalopathy, so we will consult medicine for recommendations. 03/02 - appreciate Ms. Michelle and Dr. Segura's recommendations. Lactulose has been increased. Baseline ammonia is 80-low 100s. 03/03 - ammonia down to 77.8 today, continue current treatment regimen. (5) Pancytopenia 03/01: Follow daily CBCs: WBC 3.17, RBC 2.63, Hbg 9.5, Hct 26.5, Plt 83 (6) Chronic anemia Follow red blood cell count and consult medicine if needed. (7) Seizure Continue home doses of oxcarbazepine 300 mg every morning and 600 mg daily at bedtime, topiramate 75 mg twice a day, and Keppra 2000 mg twice a day. Follow-up with Dr. Gonzalez as recommended. (8) Peptic ulcer disease Continue home meds. (9) History of hepatic encephalopathy Continue rifaximin. (10) Hypothyroidism Continue home dose of levothyroxine. (11) Altered mental status Patient has had repeated admissions for altered mental status and sedation, and is on numerous medications. On review of her home meds, it appears that she is not currently prescribed oxycodone, as she last received a [address] Suarez on 01/01/2017 upon discharge from the hospital. She states that she has been taking 1 tab daily, but if that were accurate, she would have run out in December. We will discontinue this medication here, as it increases her risk of altered mental status, falls, and drug drug interactions. Discharge / Aftercare Planning Psychiatrist: Name: GHULAM Lindsay Therapist: Name: Terry Hernandez Visit Code E&M Code: 33470 Inventory Assets Strengths: , supportive , has housing and outpatient providers Needs: Improved adherence with treatment recommendations, increased outpatient psychiatric supports (case management and psych rehabilitation). Risk Factors Assessment : Yes /single/: No Higher / Fall in social status: No Health problems: Yes Mental Health Diagnoses: Yes Substance use disorders: No Previous attempt: Yes Previous psychiatric stay: Yes Hopelessness: No Smoker: No Protective Factors Assessment Taoism beliefs: Yes : Yes Responsible for young children: No Employed: No Stable relationships: No Supportive family: Yes Good rapport with provider: Yes Data Vital Signs Last 24 Hrs: Date Time Temp Pulse Resp B/P (MAP) Pulse Ox O2 Delivery O2 Flow Rate FiO2 03/03/17 07:12 36.8 82 16 127/76 83 119/73 Meds Administered Last 24 Hrs: Meds Administered (Past 24Hrs) Medications (Trade) Dose Ordered Sig/Danita Route Start Time Stop Time Status Last Admin Dose Admin Mirtazapine (Remeron Tab) 45 mg HS PO 03/01/17 22:00 03/30/17 21:59 03/02/17 21:03 45 MG Guaifenesin (Mucinex Contr Rel Tab) 600 mg Q12 PO 03/01/17 21:00 03/31/17 20:59 03/03/17 08:40 600 MG Spironolactone (Aldactone Tab) 25 mg DAILY@1400 PO 03/02/17 14:00 04/01/17 13:59 03/02/17 14:10 25 MG Spironolactone (Aldactone Tab) 25 mg 1435 ONCE PO 03/01/17 14:35 03/01/17 14:40 DC 03/01/17 15:02 25 MG Lactulose (Chronulac Syrup) 30 gm TID PO 03/01/17 22:00 03/30/17 21:59 03/02/17 21:04 30 GM Budesonide/ Formoterol Fumarate (Symbicort 160/ 4.5 Inh) 2 puffs BID INH 03/01/17 15:30 03/31/17 15:29 03/02/17 09:41 2 PUFFS Trazodone HCl (Desyrel Tab) 50 mg HS PRN PO 03/02/17 09:45 04/01/17 09:44 03/02/17 22:23 50 MG Insulin Glargine (Toujeo Solostar) 38 units DAILY SC 03/02/17 10:00 04/01/17 09:59 03/03/17 09:12 38 UNITS Levetiracetam (Keppra Tab) 2,000 mg BID PO 03/02/17 22:00 04/01/17 21:59 03/03/17 08:40 2,000 MG Oxcarbazepine (Trileptal) 300 mg QAM PO 03/03/17 09:00 04/02/17 08:59 03/03/17 08:42 300 MG Oxcarbazepine (Trileptal) 600 mg HS PO 03/02/17 22:00 04/01/17 21:59 03/02/17 21:06 600 MG Lab Results Last 24 Hrs: Last 24 Hours Test 03/02/17 11:46 03/02/17 17:27 03/02/17 21:01 03/03/17 07:36 Bedside Glucose 232 mg/dl 213 mg/dl 219 mg/dl 133 mg/dl Test 03/03/17 08:18 White Blood Count 3.93 K/uL Red Blood Count 2.72 M/uL Hemoglobin 9.8 g/dL Hematocrit 27.8 % Mean Corpuscular Volume 102.2 fL Mean Corpuscular Hemoglobin 36.0 pg Mean Corpuscular Hemoglobin Concent 35.3 g/dl Platelet Count 89 K/uL Mean Platelet Volume 10.6 fL Neutrophils (%) (Auto) 55.7 % Lymphocytes (%) (Auto) 30.0 % Monocytes (%) (Auto) 9.4 % Eosinophils (%) (Auto) 3.8 % Basophils (%) (Auto) 0.8 % Neutrophils # (Auto) 2.19 K/uL Lymphocytes # (Auto) 1.18 K/uL Monocytes # (Auto) 0.37 K/uL Eosinophils # (Auto) 0.15 K/uL Basophils # (Auto) 0.03 K/uL RDW Standard Deviation 49.2 fL RDW Coefficient of Variation 13.9 % Immature Granulocyte % (Auto) 0.3 % Immature Granulocyte # (Auto) 0.01 K/uL Macrocytosis PRESENT Ammonia 77.8 umol/L Problem Qualifiers (1) Depression: Depression Type: major depressive disorder Major depression recurrence: recurrent Active/Remission status: currently active Major depression episode severity: severe Psychotic features: without psychotic features Qualified Codes: F33.2 - Major depressive disorder, recurrent severe without psychotic features
[2017-03-03] MEDS: SPIRONOLACTONE 25 MG TAB PO SCH (13:57)
[2017-03-03 14:09] VITALS: Ht 162.6 cm; Wt 90.5 kg
--- NOTE | 2017-03-03 18:13 | Hospitalist Progress Note ---
Hospitalist Progress Note Date of Service Mar 03, 2017. (Karen Bernardo CRNP) Subjective Pt evaluation today including: conversation w/ patient, physical exam, chart review, lab review, review of inpatient medication list Voiding: no voiding problems Ms. Munson reports that she is feeling well overall though her chronic back pain is bothering her a bit. She also complains of urinary frequency. She states that she is likely going home tomorrow. ROS Constitutional: no chills, aches, sweats or fever Respiratory: no sob,cough, sputum, or wheezing Cardiac: no chest pain, palpitations, edema, orthopnea or lightheadedness GI: no abdominal pain, nausea, vomiting, diarrhea or constipation : no dysuria or hesitancy Extremities: see HPI Skin: no rash All Other Systems: Reviewed and Negative (Karen Bernardo CRNP) Medications Medications Administered Medications (Trade) Dose Ordered Sig/Danita Route Start Time Stop Time Status Last Admin Dose Admin Bumetanide (Bumex Tab) 1 mg QAM PO 03/01/17 09:00 03/31/17 08:59 03/03/17 08:39 1 MG Cholecalciferol (Vitamin D Tab) 5,000 inter.unit DAILY PO 03/01/17 09:00 03/31/17 08:59 03/03/17 08:43 5,000 INTER.UNIT Ferrous Sulfate (Feosol Tab) 325 mg QPM PO 02/28/17 21:00 03/30/17 20:59 03/02/17 21:04 325 MG Levothyroxine Sodium (Synthroid Tab) 75 mcg DAILYBB PO 03/01/17 08:00 03/31/17 07:59 03/03/17 07:34 75 MCG Magnesium Oxide (Mag-Ox Tab) 400 mg TID PO 02/28/17 22:00 03/30/17 21:59 03/03/17 13:58 400 MG Oxcarbazepine (Trileptal Tab) 300 mg QAM PO 03/01/17 09:00 03/02/17 13:53 DC 03/02/17 09:00 300 MG Oxcarbazepine (Trileptal Tab) 600 mg HS PO 02/28/17 22:00 03/02/17 13:53 DC 03/01/17 21:20 600 MG Oxycodone HCl (Roxicodone Immediate Rel Tab) 5 mg Q8 PRN PO 02/28/17 16:45 03/03/17 09:48 DC 03/02/17 13:48 5 MG Ranitidine HCl (zANTac TAB) 150 mg BID PO 02/28/17 22:00 03/30/17 21:59 03/03/17 08:43 150 MG Rifaximin (Xifaxan Tab) 550 mg BID PO 02/28/17 22:00 03/30/17 21:59 03/03/17 08:43 550 MG Spironolactone (Aldactone Tab) 25 mg QPM PO 02/28/17 21:00 03/01/17 14:37 DC 02/28/17 20:51 25 MG Sumatriptan Succinate (Imitrex Tab) 100 mg UD PRN PO 02/28/17 16:45 03/30/17 16:44 03/03/17 07:36 100 MG Topiramate (Topamax Tab) 25 mg BID PO 02/28/17 22:00 03/30/17 21:59 03/03/17 08:41 25 MG Topiramate (Topamax Tab) 50 mg BID PO 02/28/17 22:00 03/30/17 21:59 03/03/17 08:41 50 MG Ascorbic Acid (Vitamin C Tab) 1,000 mg DAILY PO 03/01/17 09:00 03/31/17 08:59 03/03/17 08:42 1,000 MG Levetiracetam (Keppra Tab) 2,000 mg BID PO 02/28/17 22:00 03/02/17 10:52 DC 03/02/17 09:41 2,000 MG Pantoprazole Sodium (Protonix Tab) 40 mg QAM PO 03/01/17 09:00 03/31/17 08:59 03/03/17 08:40 40 MG Lactobacillus Acidophilus (Floranex Tab) 1 tab DAILY PO 03/01/17 09:00 03/31/17 08:59 03/03/17 08:39 1 TAB Zinc Sulfate (Zinc Sulfate Cap) 220 mg BID PO 02/28/17 22:00 03/30/17 21:59 03/03/17 08:43 220 MG Mirtazapine (Remeron Tab) 30 mg HS PO 02/28/17 22:00 03/01/17 09:18 DC 02/28/17 20:50 30 MG Lactulose (Chronulac Syrup) 20 gm TID PO 02/28/17 22:00 03/01/17 15:15 DC 03/01/17 13:46 20 GM Insulin Glargine (Lantus Solostar Pen) 38 units QAM SC 03/01/17 09:00 03/02/17 09:55 DC 03/01/17 09:22 38 UNITS Insulin Aspart (novoLOG ASPART) SLIDING SCALE ACHS SC 02/28/17 17:15 03/30/17 17:14 03/03/17 13:09 11 UNITS Hydroxyzine HCl (Vistaril Tab) 50 mg HSZ PRN PO 02/28/17 22:45 03/02/17 09:48 DC 03/01/17 22:34 50 MG Mirtazapine (Remeron Tab) 45 mg HS PO 03/01/17 22:00 03/30/17 21:59 03/02/17 21:03 45 MG Guaifenesin (Mucinex Contr Rel Tab) 600 mg Q12 PO 03/01/17 21:00 03/31/17 20:59 03/03/17 08:40 600 MG Spironolactone (Aldactone Tab) 25 mg DAILY@1400 PO 03/02/17 14:00 04/01/17 13:59 03/03/17 13:57 25 MG Spironolactone (Aldactone Tab) 25 mg 1435 ONCE PO 03/01/17 14:35 03/01/17 14:40 DC 03/01/17 15:02 25 MG Lactulose (Chronulac Syrup) 30 gm TID PO 03/01/17 22:00 03/30/17 21:59 03/03/17 13:58 30 GM Budesonide/ Formoterol Fumarate (Symbicort 160/ 4.5 Inh) 2 puffs BID INH 03/01/17 15:30 03/31/17 15:29 03/02/17 09:41 2 PUFFS Trazodone HCl (Desyrel Tab) 50 mg HS PRN PO 03/02/17 09:45 1/2/18 09:44 03/02/17 22:23 50 MG Insulin Glargine (Toujeo Solostar) 38 units DAILY SC 03/02/17 10:00 04/01/17 09:59 03/03/17 09:12 38 UNITS Levetiracetam (Keppra Tab) 2,000 mg BID PO 03/02/17 22:00 04/01/17 21:59 03/03/17 08:40 2,000 MG Oxcarbazepine (Trileptal) 300 mg QAM PO 03/03/17 09:00 04/02/17 08:59 03/03/17 08:42 300 MG Oxcarbazepine (Trileptal) 600 mg HS PO 03/02/17 22:00 04/01/17 21:59 03/02/17 21:06 600 MG (Karen Bernrado CRNP) Objective Vital Signs Date Time Temp Pulse Resp B/P (MAP) Pulse Ox O2 Delivery O2 Flow Rate FiO2 03/03/17 07:12 36.8 82 16 127/76 83 119/73 (Karen Bernardo CRNP) Physical Exam Notes: General: no distress Eyes: normal inspection, PERLL Respiratory: chest non tender, clear to auscultation, normal breath sounds, no respiratory distress, no accessory muscle use Cardiac: regular rate and rhythm, no rub or gallop, no murmur, no edema, no jvd GI/: active bowel sounds, no abd pain or tenderness, soft, non distended Extremities: normal range of motion, normal strength, non tender Neuro/Psych: alert and oriented x 3, normal mood and flat affect Skin: normal color, dry (Karen Bernardo CRNP) Laboratory Results Last 24 Hours Test 03/02/17 21:01 03/03/17 07:36 03/03/17 08:18 03/03/17 12:01 Bedside Glucose 219 mg/dl 133 mg/dl 184 mg/dl White Blood Count 3.93 K/uL Red Blood Count 2.72 M/uL Hemoglobin 9.8 g/dL Hematocrit 27.8 % Mean Corpuscular Volume 102.2 fL Mean Corpuscular Hemoglobin 36.0 pg Mean Corpuscular Hemoglobin Concent 35.3 g/dl Platelet Count 89 K/uL Mean Platelet Volume 10.6 fL Neutrophils (%) (Auto) 55.7 % Lymphocytes (%) (Auto) 30.0 % Monocytes (%) (Auto) 9.4 % Eosinophils (%) (Auto) 3.8 % Basophils (%) (Auto) 0.8 % Neutrophils # (Auto) 2.19 K/uL Lymphocytes # (Auto) 1.18 K/uL Monocytes # (Auto) 0.37 K/uL Eosinophils # (Auto) 0.15 K/uL Basophils # (Auto) 0.03 K/uL RDW Standard Deviation 49.2 fL RDW Coefficient of Variation 13.9 % Immature Granulocyte % (Auto) 0.3 % Immature Granulocyte # (Auto) 0.01 K/uL Macrocytosis PRESENT Ammonia 77.8 umol/L (Karen Bernardo CRNP) Assessment and Plan 50 y/o female, with PMHx liver cirrhosis, T2DM, hypothyroidism, seizure disorder , migraines, asthma, parkinsonism, bipolar disorder, chronic pancytopenia, and GERD, who was admitted to [facility] for suicidal ideations. Hospitalist team was consulted for elevated ammonia. Liver cirrhosis - ammonia level trending down - 77 today, baseline mentation - Lactulose 30 g TID- titrate PRN for 2-3 BMs per day - Continue Rifaximin 550 mg BID, Aldactone 25 mg Bipolar disorder, depression w/ suicidal ideations - management per psychiatry Cold-like symptoms -Mucinex 600 mg BID Seizure disorder, parkinsonism- follows w/ Dr. Gonzalez: Continue Keppra 2000 mg BID, Continue Trileptal 300 mg QAM and 600 mg HS, Topamax 75 mg BID T2DM: - blood sugars a bit high yesterday, above 200, but better today - Continue Toujeo 38 units daily - BSG ACHS w/ sliding insulin scale - Pharmacy consulted for diabetic management Hypothyroidism: Synthroid 75 mcg daily Pancytopenia, chronic- STABLE: Ferrous Sulfate 325 mg PO daily Asthma: Continue Ventolin, Symbicort h/o migraines: Imitrex PRN GERD: Protonix 40 mg daily + Zantac Code Status: LEVEL I, FULL (Karen Bernardo CRNP) Attending Attestation: Pt seen/examined, chart reviewed, care plan d/w JOSH Bernardo. I agree w/ the tai components of her documentation. Pt w/o complaints. In good spirits - 'I'm going home tomorrow!" No abd pain, dyspnea, chest pain. Has c/o chronic musculoskeletal pain. gen - nad heart - RRR, s1, s2, 1/6 GIOVANNI LSB lungs - CTA b/l ext - trace edema neuro - mild tremor (baseline) but no asterixis psych - a/o x 3 A/P: 1. cirrhosis 2nd to STEVE - compensated 2. hyperammonemia w/o hepatic encephalopathy - controlled; ammonia in the 70s today. Ammonia remains stable on rifaximin & lactulose. 2-3 BMs/day. 3. bipolar d/o with depression - per psych 4. pancytopenia 2nd to #1 - stable 5. T2DM - controlled 6. HTN - controlled 7. chronic musculoskeletal pain - Ms. Munson becomes quite sedated by narcotics ; limit such. use topical treatment (voltaren gel, etc) when needed. anticipate d/c tomorrow Sammy Haney MD (Sammy Haney MD)
[2017-03-03] MEDS: FERROUS SULFATE 325 MG TAB PO SCH (21:25)
[2017-03-03] MEDS: MIRTAZAPINE TAB 15 MG TAB PO SCH (21:33)
[2017-03-03] MEDS: TRAZODONE HCL 50 MG TAB PO PRN (23:19)
[2017-03-04 07:17] VITALS: BP_SYST 127; BP_DIAS 77; BP_DIAS 81; PULSE 75; PULSE 76; TEMP 36.4
[2017-03-04] MEDS: LEVOTHYROXINE 75 MCG TAB PO SCH (07:20)
[2017-03-04] MEDS: SUMATRIPTAN SUCC TAB 100 MG TAB PO PRN (07:36)
[2017-03-04] MEDS: INSULIN ASPART 100 UNITS/ML 3 ML PEN SC SCH ×2 (08:00→12:00)
[2017-03-04 08:48] LABS: HEMATOCRIT 26.3 % (37-47); MEAN CELL VOLUME 100.8 fL (80-100); MEAN CORPUSCULAR HEMOGLOBIN 36.4 pg (25-34); MEAN CORPUSCULAR HGB CONC 36.1 g/dl (32-36); RED BLOOD COUNT 2.61 M/uL (4.2-5.4); WHITE BLOOD COUNT 3.46 K/uL (4.8-10.8)
[2017-03-04] MEDS ORDERED: DSY50 PO (09:00)
[2017-03-04] MEDS: LACTULOSE SYRUP 30 GM/45 ML UDP PO SCH ×2 (09:00→13:59)
[2017-03-04] MEDS: LEVETIRACETAM PO SCH (09:00)
[2017-03-04] MEDS ORDERED: MIRT30TA3 PO (09:00)
[2017-03-04] MEDS: INSULIN GLARGINE 300 UNIT/ML SC SCH (09:00)
[2017-03-04] MEDS: BUDESONIDE/FORMOTEROL FUMARATE 160/4.5 60 PUFFS/INHALER INH SCH (09:00)
[2017-03-04] MEDS: OXCARBAZEPINE 300 MG PO SCH (09:00)
--- NOTE | 2017-03-04 09:11 | Discharge Instructions ---
Discharge Information Report Includes Report will include the: Discharge Instructions & Summary Admission Admission Date / Time: Feb 28, 2017 at 16:05 Reason for Admission: Suicidal Ideation Discharge Discharge Diagnosis / Problem: Depression and borderline personality disorder Condition at Discharge: Fair Discharge Goals Goal(s): Improve function, Improve disease control, Learn about illness, Therapeutic intervention, Specific goals (clarifying correct medications.) Activity Recommendations Activity Limitations: per Instructions/Follow-up section . Instructions / Follow-Up Instructions / Follow-Up . SPECIAL CARE INSTRUCTIONS: 1. Follow through with your scheduled aftercare appointments. If unable to keep an appointment, please call to reschedule. 2. Take your medication only as prescribed. Medication should not be changed or stopped without the approval of your doctor. In the event of worsening symptoms or concerns about side effects, contact your doctor immediately. We recommend that all medications be kept locked up and that you not have access to large amounts of pills, due to over-using your medications and the risk of overdose. 3. Utilize new healthy coping skills, anger management skills, and stress management skills learned during your hospitalization. Journal feelings and process them with a support person. Identify stressors or situations that may result in relapse, deterioration or inappropriate behaviors and develop a plan to deal with those issues. 4. If your coping skills are ineffective and you are in crisis, contact your outpatient providers for direction. If unable to reach your providers, please call the CAN HELP LINE AT or go to the closest Emergency Room. 5. Avoid alcohol and un-prescribed drugs. We recommend avoiding controlled substances such as benzodiazepines and opiate pain medications because of all of the medications you are on and your frequent hospitalizations for altered mental status and oversedation, which can be caused by these types of medications. 6. You have been provided with the Mental Health Advance Directives Pamphlet for your review. AFTERCARE APPOINTMENTS: * Please call your insurance company prior to your scheduled appointment to confirm your aftercare providers are covered. Take your insurance information to your appointments. . Discharge / Aftercare Planning Primary Care Physician: Name: Dr Little [place] Date of Appointment: Mar 12, 2017 Time of Appointment: 3:00pm Psychiatrist: Name: Lisa Barrera PA-C [place] Date of Appointment: Mar 07, 2017 Time of Appointment: 10:15am Therapist: Name Of Therapist: Terrycassie Hernandez [employer]PER[employer]OR [employer]-[facility] Date of Appointment: Mar 12, 2017 Time of Appointment: 4:00pm Partial or Psych Rehab: Name: [facility]: Name: Dr. Bustamante Sonja Sena [facility] Date of Appointment: Mar 04, 2017 Time of Appointment: 2:40pm Neurologist: Name: Dr Gonzalez Date of Appointment: Mar 06, 2017 Time of Appointment: 11:30am . Follow-Up Care Plan for Follow-Up Care: See above. You requested to be referred back to the [facility] for case management, and should call them today before leaving the hospital to set this up. Current Hospital Diet Patient's current hospital diet: Diabetes Type 2 Diet Discharge Diet Recommended Diet: Diabetes Type 2 Diet Procedures Procedures Performed: No Pending Studies Pending Studies at Discharge: No Medical Emergencies . Who to Call and When: Medical Emergencies: For questions or emergencies related to your hospital stay, please contact the Inpatient Behavioral Health Unit at [phone]. A road service locksmith is on-call 21/10 for the Behavioral Health Unit for emergencies At any time you feel your situation is an emergency, you may also call 911 immediately. . Non-Emergent Contact Non-Emergency issues call your: Primary Care Provider, Psychiatrist, Therapist , Ventilation Equipment Tender Past History Medical & Surgical History: (1) Hypothyroidism (2) Altered mental status (3) Asthma (4) Diabetic gastroparesis (5) Diab Ashley Wo Comp Type Ii Or Nos/Not Uncontrolled (6) Seizure disorder (7) Pancytopenia (8) Migraines (9) History of hepatic encephalopathy (10) Peptic ulcer disease (11) Hyperammonemia (12) Lethargy Advance Directives Existing Advance Directive: No Do You Have an Existing Mental: No Existing Living Will: No Existing Power of Customs House Broker: No Advance Directives Info Given: To Pt/S.O. Advance Directives Reason: Declines as Mental Health Visit. Discharge Summary Admission HPI Per the Admitting provider: Patient is known to me from multiple previous psychiatric consultations. Prior to this admission, she was last seen by the undersigned in psychiatric consultation in May 2015 when she was admitted medically for hepatic encephalopathy. At that time, she was following with her outpatient psychiatrist, Dr. Sams, at [facility] and was taking escitalopram, venlafaxine, and trazodone. She has a history of poor compliance with outpatient appointments due to difficulty with transportation and other social issues. Since that time , she has had numerous admissions to the hospitalist service (this is her ninth admission in the past year), usually for hepatic encephalopathy. Shortly after midnight 02/25/17, she contacted [facility], stating that she had not been able to sleep for the past couple of nights, and mood was worsening. She endorsed suicidal thoughts to overdose on her insulin, and it was recommended that she come into the emergency room. The CAN HELP notes indicate that she has such a marked tremor that she was unable to sign paperwork. She reported decreased appetite over the past 5 days, and said she was not bathing or caring for herself. She denied any specific psychosocial stressors or exacerbating events , other than being unable to sleep for the past several nights. She admitted to taking double the recommended amount of Tylenol PM to try to fall asleep, but denied that she was attempting to harm herself. On presentation to the emergency room, she reported severe back pain, abdominal pain, and constipation , and her reported that she had appeared very confused that day, and he wondered if her ammonia level was elevated. On exam, she was lethargic and difficult to arouse. Labs revealed an ammonia of 280, elevated bilirubin, AST, and alkaline phosphatase, elevated PT and INR, and low WBCs, RBCs, platelets, hemoglobin and hematocrit. She was continued on oxcarbazepine and mirtazapine at her home doses, and all of her medical medications were continued unchanged. Her ammonia was followed, and was trending downwards - 110 on 02/26/2017. She is now seeing Lisa Barrera for psychiatric med management, and her records were received and reviewed: stopped trazodone and Pristiq and started mirtazapine in September per patient. Last seen 02/03/2017, said her mood had been lower and sleep was poor, and she had increased her Remeron to 60 mg on her own , thinking it might help her sleep. She wanted new medication for sleep and mood. She admitted that she had been sleeping during the day, napping with her both in the morning and in the evening, and then unable to fall asleep at night. She was advised to continue mirtazapine at the prescribed dose of 30 mg at bedtime, and that her sleep difficulties were a behavioral issue, and she should not sleep during the day and should only go to bed at night when it is time for sleep. She was also encouraged to go to psych rehabilitation as often as possible and to exercise during the day to help with sleep. She was advised to follow up in 8 weeks. Her diagnosis is recurrent depression. Today, she states that her mood continues to be depressed, and perseverates on wanting "a different sleep medication, I need something to help me with sleep." She states that the hydroxyzine 50 mg that she got last night was helpful for sleep, and nursing staff report she slept well, 5-1/2 hours overnight and is still in bed this morning. She cannot explain why she keeps asking for "a different sleep medication," other than to say "I can't keep taking the Vistaril ," but cannot explain why. She then starts talking about her pain medication, wanting to know if she can get oxycodone here. She further states that she would like a new medication for mood, and says she was under the impression that mirtazapine was for sleep only. She is agreeable to increasing the mirtazapine to target her mood. She continues to deny any acute stressors at home, and admits that she was not caring for herself prior to admission. She denies suicidal thoughts. She is willing to have a meeting with her . Her goals will she is here or to work on her mood and coping skills, including getting out of bed, going to groups, and coloring. Admission Exam Per the Admitting provider: Please see admission H&P. Consultations Hospitalist, diabetic pharmacist Hospital Course (1) Depression 03/01- increase mirtazapine to 45 mg daily at bedtime to target mood. - Will need to coordinate care with GHULAM Lindsay, at [facility] on Friday regarding medications, specifically the patient's request for sleep medications. - Will offer hydroxyzine 50 mg daily at bedtime when necessary insomnia here, but the patient has multiple sedating medications and her sleep issue is likely primarily behavioral, so will attempt to use this only in the short-term. Advised her that she will need to be up and out of bed during the day and avoid naps in order to allow for optimal sleep at night. - Family meeting with . - Explore ways to increase outpatient supports (refer her for blended case briefer and psych rehabilitation). - Every 15 minute checks for safety. - Attend groups and work on healthy coping skills and a discharge safety plan ( would recommend that all medications be locked and secured so she does not have access to large amounts to overdose on). 03/02 - Encourage the patient to be out of bed and actively participating in treatment during the day, both to get the most out of treatment here, and to improve nighttime sleep. - Family meeting scheduled with for Friday. - Discontinue hydroxyzine and try trazodone 50 mg daily at bedtime when necessary insomnia, may repeat 1 if needed. Coordinate care with Lisa Barrera at [facility] tomorrow when she is back in the office. 03/03 - Continue mirtazapine 45 mg daily at bedtime, and contacted outpatient psychiatric PA to coordinate care - left message with her clinic staff regarding the patient's stay and requests for medication changes. - Patient is asking to be switched from mirtazapine to sertraline, but advised her that as her symptoms are improving on her current regimen, I wouldn't recommend changes just prior to discharge, and that she should address this with her outpatient provider. - Continue trazodone 50 mg daily at bedtime when necessary, may repeat 1 if needed. - Family meeting with today - recommend that all medications in the home because locked and secured, and that he dispense them to the patient daily to decrease risk of overdose and overuse of medications. 03/04 - Patient continues to deny suicidal thoughts and feels ready for discharge. She states she is out of mirtazapine at home, and review of external medication history reveals that she last filled the prescription on 02/03/2017. She was issued a prescription for a 30 day supply of mirtazapine 45 mg daily at bedtime , and instructed to take it only as directed and not to adjust the dose on her own. - Prescription issued for a 5 day supply of trazodone 50 mg qhs prn, repeat x 1 if needed. Patient was instructed that this medication is for short-term use only, and that in order to maintain good sleep-wake cycles, she should remain out of bed and active during the day. We reviewed sleep hygiene, and her plan to avoid retreating to bed during the day, including spending time with friends , coloring, and going to her appointments, including psych rehabilitation 2 days a week. - Patient is requesting to be referred back to the base service [facility] for blended case management, and agreed to call them today prior to discharge to request those services. - Follow-up with Lisa Barrera on 03/07/2017, therapist Terry Hernandez on 03/12/2017, and psych rehabilitation on Friday and starting next week. (2) Borderline personality disorder Clear and consistent boundaries, coordinate with outpatient therapist and psychiatric PA. (3) Diabetes Glycemic control consult for assistance in managing diabetes. Continue 38 units Lantus every morning and sliding scale insulin. 03/03 - follow-up with PCP, Dr. Little, at [facility] [place] on 03/12/2017. (4) Hyperammonemia Ammonia was 280 on admission, had been trending down on the medical floor, was 110 on 02/26/2017, and last evening had come up to 130.1. She is somnolent, and I'm concerned about her chronic hepatic encephalopathy, so we will consult medicine for recommendations. 03/02 - appreciate Ms. Michelle and Dr. Segura's recommendations. Lactulose has been increased. Baseline ammonia is 80-low 100s. 03/03 - ammonia down to 77.8 today, continue current treatment regimen. 03/04 - patient instructed on the importance of taking her lactulose as directed with a goal of 2-3 BMs daily. (5) Pancytopenia 03/01: Follow daily CBCs: WBC 3.17, RBC 2.63, Hbg 9.5, Hct 26.5, Plt 83 (6) Chronic anemia Follow red blood cell count and consult medicine if needed. (7) Seizure Continue home doses of oxcarbazepine 300 mg every morning and 600 mg daily at bedtime, topiramate 75 mg twice a day, and Keppra 2000 mg twice a day. Follow-up with Dr. Gonzalez as recommended. (8) Peptic ulcer disease Continue home meds. (9) History of hepatic encephalopathy Continue rifaximin. (10) Hypothyroidism Continue home dose of levothyroxine. (11) Altered mental status Patient has had repeated admissions for altered mental status and sedation, and is on numerous medications. On review of her home meds, it appears that she is not currently prescribed oxycodone, as she last received a [address] Suarez on 01/01/2017 upon discharge from the hospital. She states that she has been taking 1 tab daily, but if that were accurate, she would have run out in December. We will discontinue this medication here, as it increases her risk of altered mental status, falls, and drug drug interactions. 03/04 - patient is asking for opiate pain medications, and was again advised that we're not recommending she take these medications due to the risk of abuse , altered mental status, and drug drug interactions, as well as the fact that they are not indicated for treatment of chronic nonspecific pain. She has a follow-up appointment with Dr. Bustamante at [facility] for pain management today. Risk Factors Assessment : Yes /single/: No Higher / Fall in social status: No Access to guns: No Health problems: Yes Mental Health Diagnoses: Yes Substance use disorders: No Previous attempt: Yes Previous psychiatric stay: Yes Hopelessness: No Smoker: No Protective Factors Assessment Voodoo beliefs: Yes : Yes Responsible for young children: No Employed: No Stable relationships: No Supportive family: Yes Good rapport with provider: Yes Absence of risk factors above: Yes (risk factors were mitigated by admission to the inpatient unit, adjusting medications to target mood and sleep, addressing comorbid medical conditions, reviewing medications given polypharmacy and discontinuing medications that she is not currently prescribed , involving her in groups and therapy on the unit, working on healthy coping skills and her discharge safety plan, involving her who is her primary support and a family meeting, working on a safety plan to include recommendations that all medications in the home be locked and secured so she does not have access to them given her history of overusing them and suicidal thoughts to overdose, coordinating care with her outpatient providers and referring her for a higher level of outpatient care ([facility]), and coordinating outpatient medical appointments. The patient has improved with respect to mood and suicidal thoughts here, has consistently denied thoughts of harming herself or others, and is no longer at acute risk of harm to herself, so can be managed as an outpatient at this time.) Day of Discharge Assessment Hospital course: The patient was admitted on transfer from the medical floor after several days on the hospitalist service for treatment of hyperammonemia and liver failure. Her mirtazapine was increased from 30-45 mg at bedtime to target depressive symptoms. She was very focused on getting sleep medication, and initially had a good response to hydroxyzine, but then felt it was not working as well so asked for a trial of trazodone. She had good response to trazodone and was given a prescription for 5 days worth of the medication at discharge. She was educated extensively about the importance of behavioral techniques to optimize sleep, good sleep hygiene, dominantly avoiding napping during the day. She is on many medications, including multiple sedating medications. Her outpatient medications were reviewed, and although on admission she reported being prescribed oxycodone IR 5 mg every 8 hours when necessary, on review of the PDMP she was only prescribed a seven-day course of this medication 2 months ago on discharge from the hospitalist service, and it was not an ongoing outpatient prescription. It was therefore discontinued, as it was felt likely to be contributing to her multiple episodes of altered mental status and over sedation , and also due to concerns of drug drug interactions and lack of a clear indication for chronic opiate medications. Although this was explained to her, she continued to ask for opiates, and was encouraged to discuss better options for management of her chronic pain with her pain specialist whom she is scheduled to see on the day of discharge. She was followed by both the hospitalist service and the diabetic pharmacist for her diabetes, hyperammonemia , and pancytopenia. Her lactulose was continued up to 3 times a day with a goal of 2-3 BMs daily, and ammonia improve significantly in the hospital, indicating that she likely does not take the lactulose as directed at home. Per the hospitalist, her lactulose tends to run in the 80s to low 100s, but it came down into the 70s while in the hospital. Her mood and affect improved throughout her hospital stay, she attended and participated in groups, and was more active in performing her ADLs independently. She had a family meeting with her on 03/03/2017 and recommendations for her safety plan were reviewed in detail, including that all medications in the home be kept locked and secured so she will not have access to them, both because of her tendency to abuse medications and take more than is prescribed, and also due to the risk of intentional overdose in a suicide attempt. There was also discussion of her tendency to request frequent medication changes, stating that they are not working for her, and then later wanting to switch back. While in the hospital, she demonstrated poor understanding of what her medications were for, for example insisted that Remeron was asleep medication and that she was not on any medications for mood. Although her mood and suicidal thoughts were improving, she requested to be switched from Remeron to Zoloft just prior to discharge, and was educated about how these medications work and that she needed to give the Remeron time to see the full effect. Her also reminded her that she had previously requested to stop Zoloft and switch to Pristiq because she didn't think the Zoloft was working. They talked about their routine at home, which is difficult due to her working overnight and sleeping during the day. She tends to go to bed with him after he gets home in the morning. They discussed plans to try to get her out of the house more and increase her daily structure, and she was able to identify some friends she has met at psych rehabilitation that she could do things with during the day. She talked about her primary stressors, including her medical problems and not getting out of the house very much. Day of discharge assessment: The patient states that her mood is "better," and she denies any suicidal thoughts. She is able to review her safety plan, and states she would talk to her or call can help if she felt unsafe. We reviewed all of her medication changes in detail, as well as instructions for taking her lactulose correctly at home. We also discussed the use of trazodone for short-term treatment as an outpatient to try to get her back on a regular sleep schedule, but stressed that she will need to stay out of bed and active during the day in order to maintain appropriate sleep-wake cycles. We also discussed ways to increase structure and support at home, and she plans to resume psych rehabilitation 2 days a week next week, and make plans to do things with her friends on the days when she does not have appointments. She is again asking for prescription for opiate pain medications, and again reviewed the recommendations that she not take these medications, as they are not indicated, can interact with other medication she is taking, and worsen the risk for oversedation which is already a problem for her. She will be going to her appointment with her painter drum today after discharge. She denies any safety concerns with discharge. She states that she forgot to tell us earlier in the stay that she would like to be referred back to the base service unit for a case briefer, and says she was working with Katelinmarimar Palmer until a month or 2 ago, but her case was closed. She was agreeable to call the base service unit today prior to leaving the hospital and inquire about re- engaging in services. Obese white female appearing older than her stated age. Casually dressed and adequately groomed. Calm and cooperative, appears mildly sedated. Seated in NAD, with fair eye contact and no abnormal movements. Speech is normal rate, volume, and tone. Mood is "better," and affect is blunted, stable and congruent. Thoughts are linear, logical and goal directed. The patient denied suicidal and homicidal ideation and was able to review her safety plan. No paranoia, delusions, or hallucinations, and did not appear to be responding to internal stimuli. Cognition was grossly intact. Alert and oriented to person, place and time. Intelligence is consistent with level of education. Insight and and judgment are fair. Laboratory Test 03/01/17 07:39 03/02/17 07:19 03/03/17 08:18 03/03/17 21:10 Ovalocytes 1+ 1+ White Blood Count 3.96 3.93 Red Blood Count 2.68 2.72 Hemoglobin 9.6 9.8 Hematocrit 27.4 27.8 Mean Corpuscular Volume 102.2 102.2 Mean Corpuscular Hemoglobin 35.8 36.0 Mean Corpuscular Hemoglobin Concent 35.0 35.3 Platelet Count 96 89 Mean Platelet Volume 10.4 10.6 Neutrophils (%) (Auto) 50.0 55.7 Lymphocytes (%) (Auto) 36.4 30.0 Monocytes (%) (Auto) 8.8 9.4 Eosinophils (%) (Auto) 4.3 3.8 Basophils (%) (Auto) 0.5 0.8 Neutrophils # (Auto) 1.98 2.19 Lymphocytes # (Auto) 1.44 1.18 Monocytes # (Auto) 0.35 0.37 Eosinophils # (Auto) 0.17 0.15 Basophils # (Auto) 0.02 0.03 Immature Granulocyte % (Auto) 0.0 0.3 Immature Granulocyte # (Auto) 0.00 0.01 RDW Standard Deviation 49.2 RDW Coefficient of Variation 13.9 Macrocytosis PRESENT Ammonia 77.8 POC Glucose 153 Test 03/04/17 08:26 03/04/17 08:30 POC Glucose 155 White Blood Count 3.46 Red Blood Count 2.61 Hemoglobin 9.5 Hematocrit 26.3 Mean Corpuscular Volume 100.8 Mean Corpuscular Hemoglobin 36.4 Mean Corpuscular Hemoglobin Concent 36.1 Platelet Count Pending RDW Standard Deviation 49.4 RDW Coefficient of Variation 14.0 Ammonia 108.8 Total Time Total Time Spent (min): Greater than 30 minutes Total Time Included: examination of the patient, discharge planning, medication reconciliation, communication with other providers Tobacco Cessation at Discharge Smoking Status: Never Smoker FDA approved Prescription: non-smoker Problem Qualifiers (1) Depression: Depression Type: major depressive disorder Major depression recurrence: recurrent Active/Remission status: currently active Major depression episode severity: severe Psychotic features: without psychotic features Qualified Codes: F33.2 - Major depressive disorder, recurrent severe without psychotic features
[2017-03-04] MEDS ORDERED: MIRT45TA3 PO (09:12)
[2017-03-04] MEDS: LACTOBACILLUS ACIDOPHILUS (FLORANEX) TAB PO SCH (09:31)
[2017-03-04] MEDS: MAGNESIUM OXIDE 400 MG TAB PO SCH ×2 (09:32→13:40)
[2017-03-04] MEDS: GUAIFENESIN 600 MG TABCR PO SCH (09:33)
[2017-03-04] MEDS: TOPIRAMATE 25 MG TAB PO SCH (09:33)
[2017-03-04] MEDS: PANTOprazole SOD 40 MG TAB PO SCH (09:33)
[2017-03-04] MEDS: TOPIRAMATE 50 MG TAB PO SCH (09:34)
[2017-03-04] MEDS: ASCORBIC ACID 500 MG TAB PO SCH (09:36)
[2017-03-04] MEDS: CHOLECALCIFEROL 1000 INTER.UNIT TAB PO SCH (09:38)
[2017-03-04] MEDS: RIFAXIMIN TAB 550 MG TAB PO SCH (09:38)
[2017-03-04] MEDS: RANITIDINE HCL 150 MG TAB PO SCH (09:39)
[2017-03-04] MEDS: ZINC SULFATE 220 MG CAP PO SCH (09:39)
[2017-03-04] MEDS: BUMETANIDE 1 MG TAB PO SCH (09:39)
[2017-03-04 09:43] LABS: BASO % 0.9 %; BASO ABS # 0.03 K/uL (0-0.2); COMPLETE YES; EOS % 4.3 %; IG% 0.3 %; LYMPH % 27.2 %; LYMPH ABS # 0.94 K/uL (1.2-3.4); MEAN PLATELET VOLUME 10.4 fL (7.4-10.4); NEUT % 58.3 %; PLATELET COUNT 81 K/uL (130-400); PLT ESTIMATE DECREASED
[2017-03-04] MEDS: SPIRONOLACTONE 25 MG TAB PO SCH (13:38)
--- NOTE | 2017-03-04 16:21 | Hospitalist Progress Note ---
Hospitalist Progress Note Date of Service Mar 04, 2017. (Karen Bernardo .JOSH) Subjective Pt evaluation today including: conversation w/ patient, physical exam, chart review, lab review, review of inpatient medication list Voiding: no voiding problems Ms. Munson has no complaints except for some back pain for which she would like a prescription for percoset. ROS Constitutional: no chills, aches, sweats or fever Respiratory: no sob,cough, sputum, or wheezing Cardiac: no chest pain, palpitations, edema, orthopnea or lightheadedness GI: no abdominal pain, nausea, vomiting, diarrhea or constipation : no dysuria or hesitancy Extremities: no joint pain or weakness Skin: no rash All Other Systems: Reviewed and Negative (Karen Bernardo CRNP) Medications Medications Administered Medications (Trade) Dose Ordered Sig/Danita Route Start Time Stop Time Status Last Admin Dose Admin Bumetanide (Bumex Tab) 1 mg QAM PO 03/01/17 09:00 03/04/17 14:26 DC 03/04/17 09:39 1 MG Cholecalciferol (Vitamin D Tab) 5,000 inter.unit DAILY PO 03/01/17 09:00 03/04/17 14:26 DC 03/04/17 09:38 5,000 INTER.UNIT Ferrous Sulfate (Feosol Tab) 325 mg QPM PO 02/28/17 21:00 03/04/17 14:26 DC 03/03/17 21:25 325 MG Ibuprofen (Motrin Tab) 800 mg Q4 PRN PO 02/28/17 16:45 03/04/17 14:26 DC 03/03/17 19:27 800 MG Levothyroxine Sodium (Synthroid Tab) 75 mcg DAILYBB PO 03/01/17 08:00 03/04/17 14:26 DC 03/04/17 07:20 75 MCG Magnesium Oxide (Mag-Ox Tab) 400 mg TID PO 02/28/17 22:00 03/04/17 14:26 DC 03/04/17 13:40 400 MG Oxcarbazepine (Trileptal Tab) 300 mg QAM PO 03/01/17 09:00 03/02/17 13:53 DC 03/02/17 09:00 300 MG Oxcarbazepine (Trileptal Tab) 600 mg HS PO 02/28/17 22:00 03/02/17 13:53 DC 03/01/17 21:20 600 MG Oxycodone HCl (Roxicodone Immediate Rel Tab) 5 mg Q8 PRN PO 02/28/17 16:45 03/03/17 09:48 DC 03/02/17 13:48 5 MG Ranitidine HCl (zANTac TAB) 150 mg BID PO 02/28/17 22:00 03/04/17 14:26 DC 03/04/17 09:39 150 MG Rifaximin (Xifaxan Tab) 550 mg BID PO 02/28/17 22:00 03/04/17 14:26 DC 03/04/17 09:38 550 MG Spironolactone (Aldactone Tab) 25 mg QPM PO 02/28/17 21:00 03/01/17 14:37 DC 02/28/17 20:51 25 MG Sumatriptan Succinate (Imitrex Tab) 100 mg UD PRN PO 02/28/17 16:45 03/04/17 14:26 DC 03/04/17 07:36 100 MG Topiramate (Topamax Tab) 25 mg BID PO 02/28/17 22:00 03/04/17 14:26 DC 03/04/17 09:33 25 MG Topiramate (Topamax Tab) 50 mg BID PO 02/28/17 22:00 03/04/17 14:26 DC 03/04/17 09:34 50 MG Ascorbic Acid (Vitamin C Tab) 1,000 mg DAILY PO 03/01/17 09:00 03/04/17 14:26 DC 03/04/17 09:36 1,000 MG Levetiracetam (Keppra Tab) 2,000 mg BID PO 02/28/17 22:00 03/02/17 10:52 DC 03/02/17 09:41 2,000 MG Pantoprazole Sodium (Protonix Tab) 40 mg QAM PO 03/01/17 09:00 03/04/17 14:26 DC 03/04/17 09:33 40 MG Lactobacillus Acidophilus (Floranex Tab) 1 tab DAILY PO 03/01/17 09:00 03/04/17 14:26 DC 03/04/17 09:31 1 TAB Zinc Sulfate (Zinc Sulfate Cap) 220 mg BID PO 02/28/17 22:00 03/04/17 14:26 DC 03/04/17 09:39 220 MG Mirtazapine (Remeron Tab) 30 mg HS PO 02/28/17 22:00 03/01/17 09:18 DC 02/28/17 20:50 30 MG Lactulose (Chronulac Syrup) 20 gm TID PO 02/28/17 22:00 03/01/17 15:15 DC 03/01/17 13:46 20 GM Insulin Glargine (Lantus Solostar Pen) 38 units QAM SC 03/01/17 09:00 03/02/17 09:55 DC 03/01/17 09:22 38 UNITS Insulin Aspart (novoLOG ASPART) SLIDING SCALE ACHS SC 02/28/17 17:15 03/04/17 14:26 DC 03/04/17 12:00 14 UNITS Hydroxyzine HCl (Vistaril Tab) 50 mg HSZ PRN PO 02/28/17 22:45 03/02/17 09:48 DC 03/01/17 22:34 50 MG Mirtazapine (Remeron Tab) 45 mg HS PO 03/01/17 22:00 03/04/17 14:26 DC 03/03/17 21:33 45 MG Guaifenesin (Mucinex Contr Rel Tab) 600 mg Q12 PO 03/01/17 21:00 03/04/17 14:26 DC 03/04/17 09:33 600 MG Spironolactone (Aldactone Tab) 25 mg DAILY@1400 PO 03/02/17 14:00 03/04/17 14:26 DC 03/04/17 13:38 25 MG Spironolactone (Aldactone Tab) 25 mg 1435 ONCE PO 03/01/17 14:35 03/01/17 14:40 DC 03/01/17 15:02 25 MG Lactulose (Chronulac Syrup) 30 gm TID PO 03/01/17 22:00 03/04/17 14:26 DC 03/04/17 09:00 30 GM Budesonide/ Formoterol Fumarate (Symbicort 160/ 4.5 Inh) 2 puffs BID INH 03/01/17 15:30 03/04/17 14:26 DC 03/02/17 09:41 2 PUFFS Trazodone HCl (Desyrel Tab) 50 mg HS PRN PO 03/02/17 09:45 03/04/17 14:26 DC 03/03/17 23:19 50 MG Insulin Glargine (Toujeo Solostar) 38 units DAILY SC 03/02/17 10:00 03/04/17 14:26 DC 03/04/17 09:00 38 UNITS Levetiracetam (Keppra Tab) 2,000 mg BID PO 03/02/17 22:00 03/04/17 14:26 DC 03/04/17 09:00 2,000 MG Oxcarbazepine (Trileptal) 300 mg QAM PO 03/03/17 09:00 03/04/17 14:26 DC 03/04/17 09:00 300 MG Oxcarbazepine (Trileptal) 600 mg HS PO 03/02/17 22:00 03/04/17 14:26 DC 03/03/17 21:34 600 MG (Karen Bernardo CRNP) Objective Vital Signs Date Time Temp Pulse Resp B/P (MAP) Pulse Ox O2 Delivery O2 Flow Rate FiO2 03/04/17 07:17 36.4 76 18 127/77 75 127/81 03/04/17 07:01 (Karen Bernardo CRNP) Physical Exam Notes: General: no distress Eyes: normal inspection, PERLL Respiratory: chest non tender, clear to auscultation, normal breath sounds, no respiratory distress, no accessory muscle use Cardiac: regular rate and rhythm, no rub or gallop, no murmur, no edema, no jvd GI/: active bowel sounds, no abd pain or tenderness, soft, non distended Extremities: normal range of motion, normal strength, non tender Neuro/Psych: alert and oriented x 3, normal mood and flat affect Skin: normal color, dry (Karen Bernardo CRNP) Laboratory Results Last 24 Hours Test 03/03/17 21:10 03/04/17 08:26 03/04/17 08:30 03/04/17 11:35 Bedside Glucose 153 mg/dl 155 mg/dl 238 mg/dl White Blood Count 3.46 K/uL Red Blood Count 2.61 M/uL Hemoglobin 9.5 g/dL Hematocrit 26.3 % Mean Corpuscular Volume 100.8 fL Mean Corpuscular Hemoglobin 36.4 pg Mean Corpuscular Hemoglobin Concent 36.1 g/dl Platelet Count 81 K/uL Mean Platelet Volume 10.4 fL Neutrophils (%) (Auto) 58.3 % Lymphocytes (%) (Auto) 27.2 % Monocytes (%) (Auto) 9.0 % Eosinophils (%) (Auto) 4.3 % Basophils (%) (Auto) 0.9 % Neutrophils # (Auto) 2.02 K/uL Lymphocytes # (Auto) 0.94 K/uL Monocytes # (Auto) 0.31 K/uL Eosinophils # (Auto) 0.15 K/uL Basophils # (Auto) 0.03 K/uL RDW Standard Deviation 49.4 fL RDW Coefficient of Variation 14.0 % Immature Granulocyte % (Auto) 0.3 % Immature Granulocyte # (Auto) 0.01 K/uL Platelet Estimate DECREASED Red Blood Cell Morphology Unremarkable Ammonia 108.8 umol/L (Karen Bernardo, JOSH) Assessment and Plan 50 y/o female, with PMHx liver cirrhosis, T2DM, hypothyroidism, seizure disorder , migraines, asthma, parkinsonism, bipolar disorder, chronic pancytopenia, and GERD, who was admitted to [facility] for suicidal ideations. Hospitalist team was consulted for elevated ammonia. Liver cirrhosis - ammonia level up a little today at 108, baseline mentation - Lactulose 30 g TID- titrate PRN for 2-3 BMs per day - Continue Rifaximin 550 mg BID, Aldactone 25 mg Bipolar disorder, depression w/ suicidal ideations - management per psychiatry Cold-like symptoms -Mucinex 600 mg BID Seizure disorder, parkinsonism- follows w/ Dr. Gonzalez: Continue Keppra 2000 mg BID, Continue Trileptal 300 mg QAM and 600 mg HS, Topamax 75 mg BID T2DM: - Continue Toujeo 38 units daily - BSG ACHS w/ sliding insulin scale - Pharmacy consulted for diabetic management Hypothyroidism: Synthroid 75 mcg daily Pancytopenia, chronic- STABLE: Ferrous Sulfate 325 mg PO daily Asthma: Continue Ventolin, Symbicort h/o migraines: Imitrex PRN GERD: Protonix 40 mg daily + Zantac Code Status: LEVEL I, FULL (Karen Bernardo ., JOSH) JOSH Physician Supervision Note: I interviewed and examined the patient. Discussed with Karen MORENO and agree with findings and plan as documented in the note. Any exceptions or clarifications are listed here: None This pt was discussed and chart reviewed prior to discharge from [facility], however she was discharged prior to my visit, I anticipate Ms. Munson will continue to struggle with management of her cirrhosis and ammonia as an outpt as she varies her lactulose due to her dislike of diarrhea and also taking multiple OTC meds that may increase her lethargy Documented By: Erick Rice (Erick Rice M.D.)
== END 2017-03-04 14:20 | disposition home or self-care (01) | DRG 885 ==
LOC: C.MHU 16:05
PROVIDERS: ADMIT Psychiatry & Neurology Psychiatry; ATTEND Psychiatry & Neurology Psychiatry
DX: F33.2 Major depressive disorder, recurrent severe without psychotic features (principal); R45.851 Suicidal ideations; E72.20 Disorder of urea cycle metabolism, unspecified; D61.818 Other pancytopenia; F60.3 Borderline personality disorder; G89.29 Other chronic pain; E11.9 Type 2 diabetes mellitus without complications; G40.909 Epilepsy, unspecified, not intractable, without status epilepticus; G20 Parkinson's disease; K27.9 Peptic ulcer, site unspecified, unspecified as acute or chronic, without hemorrhage or perforation; E03.9 Hypothyroidism, unspecified; K74.60 Unspecified cirrhosis of liver; J45.909 Unspecified asthma, uncomplicated; Z91.5 Personal history of self-harm; Z87.19 Personal history of other diseases of the digestive system; Z79.2 Long term (current) use of antibiotics; Z79.4 Long term (current) use of insulin; Z79.899 Other long term (current) drug therapy; Z81.8 Family history of other mental and behavioral disorders; Z82.49 Family history of ischemic heart disease and other diseases of the circulatory system

== ENCOUNTER 2017-03-24 12:07 | Emergency (ER) | payer BC, OTHER ==
[~2017-03-24 12:07] MED LIST changes: +DSY50 PO; -MIRT30TA3 PO; +MIRT45TA3 PO; -OXYC1TAB3 PO
[2017-03-24 12:15] VITALS: TEMP 37.1; Ht 165.1 cm
--- NOTE | 2017-03-24 12:31 | EMERGENCY ROOM VISIT NOTE ---
History Report prepared by Stuartibcayetano: Anay Reyes Under the Supervision of: Dr. Liam Cruz M.D. First contact with patient: 12:24 Chief Complaint: COUGH Stated Complaint: PERSISTENT CHEST AND SINUS COLD WITH COUGH Nursing Triage Summary: patient brought in by . patient was given augmentin on friday which she is sensitive to penicillins per and it was "not going well for her that augementin." patient was switched to levaquin for her cough. patient continues to have a cough. " I think I have pnuemonia." History of Present Illness The patient is a 51 year old female who presents to the Emergency Room with complaints of a worsening cough for the past several days. She is accompanied by her . Her states she was placed on Augmentin 3 days ago by her doctor. After starting the Augmentin, she began experiencing diarrhea, so she went to a local [facility] clinic yesterday and was switched to Levaquin. The patient also complains of chest and sinus congestion, stating "I think I have pneumonia". She has been febrile and states her temperature was 101.7 when checked 3 days ago. She has been drinking fluids normally but complains of a decreased appetite, nausea and abdominal pain. She took Compazine this morning for the nausea with minimal relief. 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 Please see Additional Medical History Sheet. Past Medical & Surgical Medical Problems: (1) Asthma (2) Bipol I, Rec Epis (Or Current) Depressed, Unspecified (3) Borderline personality disorder (4) Cirrhosis (5) Depression (6) Diab Ashley Wo Comp Type Ii Or Nos/Not Uncontrolled (7) Diabetes (8) Diabetic gastroparesis (9) Encephalopathy (10) Heart murmur (11) History of hepatic encephalopathy (12) Hypernatremia (13) Hyponatremia (14) Hypothyroidism (15) Major depressive disorder with psychotic features (16) Migraines (17) Myelodysplastic syndrome (18) Pancytopenia (19) Past Psych Medications (20) Peptic ulcer disease (21) Pneumonia (22) Portal Hypertension (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 (24) Seizure disorder (25) Suicidal ideation Surgical Problems: (1) H/O nasal septoplasty (2) History of appendectomy (3) History of cholecystectomy (4) History of hysterectomy (5) History of kyphoplasty (6) History of tonsillectomy (7) s/p spinal stimulator placement Family History Depression Hypertension Social History Smoking Status: Never Smoker Alcohol Use: none Drug Use: none Marital Status: Housing Status: lives with significant other Occupation Status: disabled Current/Historical Medications Scheduled Ascorbic Acid (Vitamin C), 1,000 MG PO DAILY Bumetanide (Bumex), 1 MG PO QAM Cholecalciferol (Vitamin D), 5,000 UNITS PO DAILY Cranberry (Vaccinium Macrocarp (Cranberry Extract), 1 CAP PO BID Insulin Glargine (Lantus Solostar), 40 SC AMPM Insulin Lispro (Human) (Humalog Kwikpen), UNITS SC UD Lactulose (Chronulac), 30 ML PO BID Lecithin (Lecithin 3500), 1 CAP PO DAILY Levetiracetam (Levetiracetam), 2,000 MG PO BID Levofloxacin (Levaquin), 500 MG PO DAILY Levothyroxine Sodium (Levothyroxine Sodium), 75 MCG PO QAM Lutein-Zeaxanthin (Lutein), 1 CAP PO DAILY Magnesium Oxide (Mg Supplement (Magnesium), 500 MG PO BID Mirtazapine (Mirtazapine), 1 TAB PO HS Multivitamin (Multivitamin), 1 TAB PO DAILY Omeprazole (Prilosec), 20 MG PO QAM Oxcarbazepine (Trileptal), 300 MG PO AMHS Probiotic Product (Probiotic), 1 CAP PO DAILY Ranitidine HCl (Ranitidine HCl), 150 MG PO BID Rifaximin (Xifaxan), 550 MG PO BID Sertraline HCl (Sertraline HCl), 25 MG PO DAILY Spironolactone (Aldactone), 25 MG PO every afternoon Topiramate (Topamax), 50 MG PO BID Topiramate (Topamax ), 25 MG PO BID Zinc Gluconate (Zinc), 50 MG PO BID Scheduled PRN Albuterol Hfa (Ventolin Hfa), 2-4 PUFFS INH Q6H PRN for Shortness of Breath Benzonatate (Benzonatate), 1 CAP PO TID PRN for Cough Dextromethorphan Polistirex (Delsym), 10 ML PO Q8 PRN for Cough Epinephrine (Epipen), 0.3 MG IM UD PRN for ALLERGIC REACTION Sumatriptan Succinate (Imitrex), 100 MG PO UD PRN for Migraine Allergies Coded Allergies: Amoxicillin (Verified Allergy, Intermediate, HIVES; Has tolerated cephalosporins (Rocephin, Ceftin,Keflex, 02/26/17) Azithromycin (Verified Allergy, Intermediate, HIVES, 02/26/17) Baclofen (Verified Allergy, Intermediate, RASH, 02/26/17) Butalbital (Verified Allergy, Intermediate, HIVES, 02/26/17) Clarithromycin (Verified Allergy, Intermediate, RASH, 02/26/17) Dicyclomine (Verified Allergy, Intermediate, HIVES, 02/26/17) HIVES Penicillins (Verified Allergy, Intermediate, RASH; has tolerated cephs ( Rocephin, Keflex, Ceftin), 02/26/17) PT STATES SHE GETS WELTS FROM CIPRO,LEVAQUIN ALLERGY PER DR ROBLES Tetracyclines (Verified Allergy, Intermediate, DOXYCYCLINE-HIVES, 02/26/17 ) Sulindac (Verified Allergy, Mild, ALLERGY LISTED "CLONDORAL"--HIVES, ) Adhesives (Verified Allergy, Unknown, RASH, DUODERM=RED,ITCHY, 02/26/17) PLASTIC TAPE IS OK!!! DUODERM=RED,ITCHY Metronidazole (Verified Allergy, Unknown, SEIZURE, 02/26/17) Tramadol (Verified Allergy, Unknown, SEIZURES, 02/26/17) Metoclopramide (Verified Adverse Reaction, Severe, SEIZURES, 02/26/17) Blueberry (Verified Adverse Reaction, Mild, STOMACH PAIN, 02/26/17) Furosemide (Verified Adverse Reaction, Unknown, HIVES, 02/26/17) Physical Exam Vital Signs Date Time Temp Pulse Resp B/P (MAP) Pulse Ox O2 Delivery O2 Flow Rate FiO2 03/24/17 14:55 93 20 119/63 97 03/24/17 14:15 93 20 119/63 97 Room Air 03/24/17 12:15 37.1 93 20 108/65 97 Room Air Physical Exam GENERAL: Patient awake, alert, oriented x 3. but appears slightly lethargic. Patient follows commands. Patient does not appear toxic. Patient is adequately hydrated and well-nourished. SKIN: No erythema, pallor, cyanosis or rash HEENT: Normal head, pupils equal, reactive to light and accommodation. Left TM is normal, right TM with cerumen impaction. Oral cavity and posterior pharynx appear normal. Neck: Without adenopathy, no neck vein distention. LUNGS: Patient has end expiratory wheezes bilaterally. No rales, no rhonchi. HEART: No murmurs. No gallops. No rubs ABDOMEN: Abdomen is obese, soft and nontender. No masses, no rebound, no hepatomegaly or splenomegaly. EXTREMITIES: No signs of trauma or infection. NEUROLOGIC: Cranial nerves II-XII within normal limits. No gross motor sensory function deficits. Medical Decision & Procedures ER Provider Diagnostic Interpretation: Radiology results as stated below per my review and radiologist interpretation: CHEST 2 VIEWS ROUTINE CLINICAL HISTORY: 51 years-old Female presenting with cough fever. TECHNIQUE: PA and lateral views of the chest were obtained. COMPARISON: 02/13/2017. FINDINGS: Accessed right internal jugular Mediport terminates in the lower SVC. A pain pump projects over the left hemithorax with the catheter terminus projecting over the left base of the neck. Atherosclerosis of the aortic arch suggested. Cardiac silhouette normal in size. Apparent nodular opacity projecting over the lateral right mid lung. No other focal infiltrate. No large effusion or pneumothorax. Plate and screw fixation of the left humerus.. Cholecystectomy clips noted. IMPRESSION: 1. Apparent nodular opacity in the right midlung likely represents overlapping shadows from the external intravenous line access. No other convincing evidence of acute cardiopulmonary disease. Electronically signed by: Davis Gallegos M.D. 03/24/2017 2:13 PM Laboratory Results 03/24/17 12:49 Red Blood Count 2.71, Mean Corpuscular Volume 103.0, Mean Corpuscular Hemoglobin 36.5, Mean Corpuscular Hemoglobin Concent 35.5, Mean Platelet Volume 10.4, Neutrophils (%) (Auto) 55.0, Lymphocytes (%) (Auto) 28.3, Monocytes (%) ( Auto) 12.4, Eosinophils (%) (Auto) 3.2, Basophils (%) (Auto) 0.9, Neutrophils # (Auto) 2.39, Lymphocytes # (Auto) 1.23, Monocytes # (Auto) 0.54, Eosinophils # ( Auto) 0.14, Basophils # (Auto) 0.04 03/24/17 12:48 Test 03/24/17 12:48 03/24/17 12:49 03/24/17 13:00 Anion Gap 5.0 mmol/L (3-11) Estimated GFR () 123.0 Estimated GFR (Non- 106.1 BUN/Creatinine Ratio 22.0 (10-20) Calcium Level 7.5 mg/dl (8.5-10.1) Total Bilirubin 1.1 mg/dl (0.2-1) Aspartate Amino Transf (AST/SGOT) 51 U/L (15-37) Alanine Aminotransferase (ALT/SGPT) 50 U/L (12-78) Alkaline Phosphatase 205 U/L (45-117) Ammonia 43.0 umol/L (11-32) Total Protein 5.9 gm/dl (6.4-8.2) Albumin 2.5 gm/dl (3.4-5.0) Globulin 3.4 gm/dl (2.5-4.0) Albumin/Globulin Ratio 0.7 (0.9-2) White Blood Count 4.35 K/uL (4.8-10.8) Red Blood Count 2.71 M/uL (4.2-5.4) Hemoglobin 9.9 g/dL (12.0-16.0) Hematocrit 27.9 % (37-47) Mean Corpuscular Volume 103.0 fL (80-100) Mean Corpuscular Hemoglobin 36.5 pg (25-34) Mean Corpuscular Hemoglobin Concent 35.5 g/dl (32-36) Platelet Count 115 K/uL (130-400) Mean Platelet Volume 10.4 fL (7.4-10.4) Neutrophils (%) (Auto) 55.0 % Lymphocytes (%) (Auto) 28.3 % Monocytes (%) (Auto) 12.4 % Eosinophils (%) (Auto) 3.2 % Basophils (%) (Auto) 0.9 % Neutrophils # (Auto) 2.39 K/uL (1.4-6.5) Lymphocytes # (Auto) 1.23 K/uL (1.2-3.4) Monocytes # (Auto) 0.54 K/uL (0.11-0.59) Eosinophils # (Auto) 0.14 K/uL (0-0.5) Basophils # (Auto) 0.04 K/uL (0-0.2) RDW Standard Deviation 51.1 fL (36.4-46.3) RDW Coefficient of Variation 13.7 % (11.5-14.5) Immature Granulocyte % (Auto) 0.2 % Immature Granulocyte # (Auto) 0.01 K/uL (0.00-0.02) Urine Color YELLOW Urine Appearance CLEAR (CLEAR) Urine pH 5.0 (4.5-7.5) Urine Specific Baring 1.014 (1.000-1.030) Urine Protein NEG (NEG) Urine Glucose (UA) NEG (NEG) Urine Ketones NEG (NEG) Urine Occult Blood NEG (NEG) Urine Nitrite NEG (NEG) Urine Bilirubin NEG (NEG) Urine Urobilinogen NEG (NEG) Urine Leukocyte Esterase TRACE (NEG) Urine WBC (Auto) 1-5 /hpf (0-5) Urine RBC (Auto) 0-4 /hpf (0-4) Urine Hyaline Casts (Auto) 1-5 /lpf (0-5) Urine Epithelial Cells (Auto) 0-5 /lpf (0-5) Urine Bacteria (Auto) NEG (NEG) Laboratory results as stated above per my review. Medications Administered Medications (Trade) Dose Ordered Sig/Danita Route Start Time Stop Time Status Last Admin Dose Admin Ondansetron HCl (Zofran Inj) 4 mg Q1HWA PRN IV 03/24/17 12:45 03/24/17 15:28 DC 03/24/17 12:59 4 MG Heparin Sodium (Porcine) (Heparin 100 Unit/ml 5ml Flush) 5 ml STK-MED ONCE .ROUTE 03/24/17 14:38 03/24/17 14:39 DC 03/24/17 14:41 5 ML ED Course 1224: Past medical records reviewed. The patient was evaluated in room B11. A complete history and physical examination was performed. 1245: Zofran 4 mg IV. 1438: Heparin Sodium 5 ml IV. 1445: I reevaluated the patient. She is feeling well and is ready to home. I discussed her results and discharge instructions and she verbalized complete understanding and agreement. Medical Decision The differential diagnoses considered include hepatic encephalopathy, pneumonia , metabolic disorder and diabetes out of control. 51-year-old female with a cough. The patient started taking Augmentin but stopped due to diarrhea. She now is on Levaquin prescribed at a local urgent care. Multiple labs and imaging were obtained. Please see above. The patient has chronic anemia. The patient's ammonia level is now better than it has been. She is hypokalemic. She has a prior history of hypokalemia and was instructed to restart her potassium. The patient is currently taking Levaquin and she will continue that although I believe this is a viral infection. The patient has Ventolin at home which she was encouraged to continue using. Medication Reconcilliation Current Medication List: was personally reviewed by me Blood Pressure Screening Patient's blood pressure: Normal blood pressure Blood pressure disposition: Did not require urgent referral Impression Primary Impression: Acute bronchitis Additional Impression: Hypokalemia Scribe Attestation The scribe's documentation has been prepared under my direction and personally reviewed by me in its entirety. I confirm that the note above accurately reflects all work, treatment, procedures, and medical decision making performed by me. Departure Information Dispostion Home / Self-Care Referrals Olena Little DO (PCP) Patient Instructions Bronchitis Acute, My [facility] Additional Instructions Use your Ventolin inhaler every 4 hours as needed for cough. Take potassium twice a day until you're seen by your family physician. Problem Qualifiers
[2017-03-24] MEDS ORDERED: ONDANSETRON INJ 2 MG/ML 2 ML VIAL IV PRN (12:45)
[2017-03-24 13:15] LABS: URINE APPEARANCE CLEAR (CLEAR); URINE BILIRUBIN NEG (NEG); URINE COLOR YELLOW; URINE EPITHELIAL CELL AUTO 0-5 /lpf (0-5); URINE NITRITE NEG (NEG); URINE SPECIFIC GRAVITY 1.014 (1.000-1.030); UROBILINOGEN NEG (NEG); ZZUR CULT IF INDIC CLEAN CATCH NO
[2017-03-24 13:16] LABS: MANUAL MICROSCOPIC REQUIRED? NO; REVIEW REQ? NO
[2017-03-24] MEDS ORDERED: INSDGIPEN SC (13:17)
[2017-03-24] MEDS ORDERED: BENZ100C7 PO (13:17)
[2017-03-24] MEDS ORDERED: LECI1CAP3 PO (13:17)
[2017-03-24] MEDS ORDERED: DEXT30LI PO (13:17)
[2017-03-24] MEDS ORDERED: MAGN500T4 PO (13:17)
[2017-03-24] MEDS ORDERED: SERT1TAB88 PO (13:17)
[2017-03-24] MEDS ORDERED: MULT-506 PO (13:17)
[2017-03-24] MEDS ORDERED: LEVO1TAB33 PO (13:17)
[2017-03-24 13:21] LABS: BASO % 0.9 %; BASO ABS # 0.04 K/uL (0-0.2); COMPLETE YES; EOS % 3.2 %; HEMATOCRIT 27.9 % (37-47); IG% 0.2 %; LYMPH % 28.3 %; LYMPH ABS # 1.23 K/uL (1.2-3.4); MEAN CORPUSCULAR HEMOGLOBIN 36.5 pg (25-34); MEAN CORPUSCULAR HGB CONC 35.5 g/dl (32-36); MEAN PLATELET VOLUME 10.4 fL (7.4-10.4); MONO % 12.4 %; PLATELET COUNT 115 K/uL (130-400); RED BLOOD COUNT 2.71 M/uL (4.2-5.4); WHITE BLOOD COUNT 4.35 K/uL (4.8-10.8)
[2017-03-24 13:41] LABS: ALT/SGPT 50 U/L (12-78); AST/SGOT 51 U/L (15-37); BLOOD UREA NITROGEN 13 mg/dl (7-18); CALCIUM 7.5 mg/dl (8.5-10.1); CARBON DIOXIDE 26 mmol/L (21-32); CHLORIDE 112 mmol/L (98-107); CREATININE 0.59 mg/dl (0.60-1.20); GLUCOSE 121 mg/dl (70-99); SODIUM 143 mmol/L (136-145)
[2017-03-24 13:44] LABS: ALB/GLOB RATIO 0.7 (0.9-2); ALKALINE PHOSPHATASE 205 U/L (45-117)
--- NOTE | 2017-03-24 14:15 | DIAGNOSTIC IMAGING REPORT ---
CHEST 2 VIEWS ROUTINE CLINICAL HISTORY: 51 years-old Female presenting with cough fever. TECHNIQUE: PA and lateral views of the chest were obtained. COMPARISON: 02/13/2017. FINDINGS: Accessed right internal jugular Mediport terminates in the lower SVC. A pain pump projects over the left hemithorax with the catheter terminus projecting over the left base of the neck. Atherosclerosis of the aortic arch suggested. Cardiac silhouette normal in size. Apparent nodular opacity projecting over the lateral right mid lung. No other focal infiltrate. No large effusion or pneumothorax. Plate and screw fixation of the left humerus.. Cholecystectomy clips noted. IMPRESSION: 1. Apparent nodular opacity in the right midlung likely represents overlapping shadows from the external intravenous line access. No other convincing evidence of acute cardiopulmonary disease. Electronically signed by: Davis Gallegos M.D. 03/24/2017 2:13 PM Dictated Date/Time: 03/24/2017 2:10 PM
[2017-03-24 14:55] VITALS: BP 119/63; PULSE 93; O2SAT 97
== END 2017-03-24 14:57 | disposition home or self-care (01) ==
LOC: C.EDB 12:09
DX: J20.9 Acute bronchitis, unspecified (principal); E87.6 Hypokalemia; Z79.899 Other long term (current) drug therapy; F60.3 Borderline personality disorder; E11.9 Type 2 diabetes mellitus without complications; G40.909 Epilepsy, unspecified, not intractable, without status epilepticus; E03.9 Hypothyroidism, unspecified; Z79.4 Long term (current) use of insulin; Z81.8 Family history of other mental and behavioral disorders

== ENCOUNTER 2017-04-03 13:50 | Emergency (ER) | payer BC, OTHER ==
[~2017-04-03] VITALS: Ht 165.1 cm; Wt 92.0 kg
[~2017-04-03 13:50] MED LIST changes: +BENZ100C7 PO; +DEXT30LI PO; -DSY50 PO; -FERR325T5 PO; -IBUP-1451 PO; +INSDGIPEN SC; -INSU1.2I SQ; +LECI1CAP3 PO; +LEVO1TAB33 PO; -MAGN400T6 PO; +MAGN500T4 PO; +MULT-506 PO; +SERT1TAB88 PO; -TIOT1SPR INH; -VLTG EXT
[2017-04-03 13:57] VITALS: TEMP 36.7; Ht 165.1 cm; Wt 92.0 kg
[2017-04-03] MEDS ORDERED: SODIUM CHLORIDE 0.9% 1000ML 1,000 ML IV STA (14:50)
[2017-04-03] MEDS ORDERED: ONDANSETRON INJ 2 MG/ML 2 ML VIAL IV STA (14:55)
[2017-04-03] MEDS ORDERED: FAMOTIDINE 20MG/5ML IV PUSH IV STA (14:55)
--- NOTE | 2017-04-03 15:00 | EMERGENCY ROOM VISIT NOTE ---
History Report prepared by Broderick: Josh Donohue Under the Supervision of: Dr. Silverio Lemus M.D. First contact with patient: 14:41 Chief Complaint: NAUSEA Stated Complaint: NAUSEA Nursing Triage Summary: pt to the ED with c/o abd pain with n/v and is concerned her amonia is elevated History of Present Illness The patient is a 51 year old female who presents to the Emergency Room with complaints of nausea that began 3 hours ago. The patient reports she has increased confusion and fatigue and suspects her ammonia is elevated. The patient reports she has increased cough, congestion, and chills. The patient has a history of liver disease and diabetes. She is currently on lactulose, seizure medication, and omeprazole. The patient has right sided port and a vagus nerve stimulator on the left side. She denies a history of gastritis and ulcers. Pt denies LOC, headache, fevers, diaphoresis, visual changes, neck pain, chest pain, breathing difficulties, vomiting, abdominal pain, back pain, melena, hematochezia, urinary symptoms, numbness, lymphadenopathy, rash, or other complaints. Source of History: patient Onset: 3 hours ago Position: other (global) Timing: constant Associated Symptoms: + chills, + cough, + nausea, + fatigue Review of Systems See HPI for pertinent positives and negatives. A total of ten systems were reviewed and were otherwise negative. Past Medical & Surgical Medical Problems: (1) Asthma (2) Bipol I, Rec Epis (Or Current) Depressed, Unspecified (3) Borderline personality disorder (4) Cirrhosis (5) Depression (6) Diab Ashley Wo Comp Type Ii Or Nos/Not Uncontrolled (7) Diabetes (8) Diabetic gastroparesis (9) Encephalopathy (10) Heart murmur (11) History of hepatic encephalopathy (12) Hypernatremia (13) Hyponatremia (14) Hypothyroidism (15) Major depressive disorder with psychotic features (16) Migraines (17) Myelodysplastic syndrome (18) Pancytopenia (19) Past Psych Medications (20) Peptic ulcer disease (21) Pneumonia (22) Portal Hypertension (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 (24) Seizure disorder (25) Suicidal ideation Surgical Problems: (1) H/O nasal septoplasty (2) History of appendectomy (3) History of cholecystectomy (4) History of hysterectomy (5) History of kyphoplasty (6) History of tonsillectomy (7) s/p spinal stimulator placement Family History Depression Hypertension Social History Smoking Status: Never Smoker Alcohol Use: none Drug Use: none Marital Status: Housing Status: lives with significant other Occupation Status: disabled Current/Historical Medications Scheduled Ascorbic Acid (Vitamin C), 1,000 MG PO DAILY Bumetanide (Bumex), 1 MG PO QAM Cholecalciferol (Vitamin D), 5,000 UNITS PO DAILY Cranberry (Vaccinium Macrocarp (Cranberry Extract), 1 CAP PO BID Insulin Glargine (Lantus Solostar), 40 SC AMPM Insulin Lispro (Human) (Humalog Kwikpen), UNITS SC UD Lactulose (Chronulac), 30 ML PO BID Lecithin (Lecithin 3500), 1 CAP PO DAILY Levetiracetam (Levetiracetam), 2,000 MG PO BID Levothyroxine Sodium (Levothyroxine Sodium), 75 MCG PO QAM Lutein-Zeaxanthin (Lutein), 1 CAP PO DAILY Magnesium Oxide (Mg Supplement (Magnesium), 500 MG PO BID Mirtazapine (Mirtazapine), 1 TAB PO HS Multivitamin (Multivitamin), 1 TAB PO DAILY Omeprazole (Prilosec), 20 MG PO QAM Oxcarbazepine (Trileptal), 300 MG PO AMHS Probiotic Product (Probiotic), 1 CAP PO DAILY Promethazine (Phenergan ), 1-2 TABS PO Q6 Rifaximin (Xifaxan), 550 MG PO BID Sertraline HCl (Sertraline HCl), 25 MG PO DAILY Spironolactone (Aldactone), 25 MG PO every afternoon Topiramate (Topamax), 50 MG PO BID Topiramate (Topamax ), 25 MG PO BID Zinc Gluconate (Zinc), 50 MG PO BID Scheduled PRN Albuterol Hfa (Ventolin Hfa), 2-4 PUFFS INH Q6H PRN for Shortness of Breath Benzonatate (Benzonatate), 1 CAP PO TID PRN for Cough Dextromethorphan Polistirex (Delsym), 10 ML PO Q8 PRN for Cough Epinephrine (Epipen), 0.3 MG IM UD PRN for ALLERGIC REACTION Rizatriptan Benzoate (Maxalt), 10 MG PO DIRECTED PRN for Migraine Allergies Coded Allergies: Amoxicillin (Verified Allergy, Intermediate, HIVES; Has tolerated cephalosporins (Rocephin, Ceftin,Keflex, 04/03/17) Azithromycin (Verified Allergy, Intermediate, HIVES, 04/03/17) Baclofen (Verified Allergy, Intermediate, RASH, 04/03/17) Butalbital (Verified Allergy, Intermediate, HIVES, 04/03/17) Clarithromycin (Verified Allergy, Intermediate, RASH, 04/03/17) Dicyclomine (Verified Allergy, Intermediate, HIVES, 04/03/17) HIVES Penicillins (Verified Allergy, Intermediate, RASH; has tolerated cephs ( Rocephin, Keflex, Ceftin), 04/03/17) PT STATES SHE GETS WELTS FROM CIPRO,LEVAQUIN ALLERGY PER DR ROBLES Tetracyclines (Verified Allergy, Intermediate, DOXYCYCLINE-HIVES, 04/03/17) Sulindac (Verified Allergy, Mild, ALLERGY LISTED "CLONDORAL"--HIVES, 04/03/17) Adhesives (Verified Allergy, Unknown, RASH, DUODERM=RED,ITCHY, 04/03/17) PLASTIC TAPE IS OK!!! DUODERM=RED,ITCHY Metronidazole (Verified Allergy, Unknown, SEIZURE, 02/26/17) Tramadol (Verified Allergy, Unknown, SEIZURES, 04/03/17) Metoclopramide (Verified Adverse Reaction, Severe, SEIZURES, 04/03/17) Blueberry (Verified Adverse Reaction, Mild, STOMACH PAIN, 04/03/17) Furosemide (Verified Adverse Reaction, Unknown, HIVES, 04/03/17) Physical Exam Vital Signs Date Time Temp Pulse Resp B/P (MAP) Pulse Ox O2 Delivery O2 Flow Rate FiO2 04/03/17 21:10 80 20 98 04/03/17 21:05 77 25 99 04/03/17 21:00 75 21 97 04/03/17 20:55 77 19 96 04/03/17 20:50 80 17 100 04/03/17 20:45 78 18 99 04/03/17 20:40 77 20 98 04/03/17 20:35 76 20 97 04/03/17 20:30 77 21 97 04/03/17 20:25 77 19 98 04/03/17 20:20 78 19 97 04/03/17 20:15 81 23 99 04/03/17 20:11 74 20 106/65 98 Room Air 04/03/17 20:11 106/65 04/03/17 20:10 73 27 98 04/03/17 19:41 96 Room Air 04/03/17 18:40 77 21 04/03/17 18:35 71 19 04/03/17 18:30 72 24 04/03/17 18:25 73 18 04/03/17 18:20 73 20 04/03/17 18:15 72 20 96 Room Air 04/03/17 18:10 73 18 96 Room Air 04/03/17 17:55 73 18 96 Room Air 04/03/17 17:40 77 18 96 Room Air 04/03/17 17:25 75 18 96 Room Air 04/03/17 17:10 79 18 96 Room Air 04/03/17 16:55 73 18 96 Room Air 04/03/17 16:40 75 18 96 Room Air 04/03/17 16:25 83 18 96 Room Air 04/03/17 16:20 75 26 04/03/17 16:17 75 04/03/17 16:00 128/71 04/03/17 13:57 36.7 76 20 112/70 100 Room Air Physical Exam GENERAL: Awake, alert, fatigued appearing, in no distress HENT: Normocephalic, atraumatic. dry cracked mucous membranes. EYES: Normal conjunctiva. Sclera non-icteric. NECK: Supple. No nuchal rigidity. FROM. No JVD. RESPIRATORY: Clear to auscultation. CARDIAC: Regular rate, normal rhythm. Extremities warm and well perfused. Pulses equal. ABDOMEN: Soft, non-distended. Obese abdomen. No tenderness to palpation. No rebound or guarding. No masses. RECTAL: Deferred. MUSCULOSKELETAL: Chest examination reveals no tenderness. The back is symmetrical on inspection without obvious abnormality. There is no CVA tenderness to palpation. No joint edema. Slight asterixis of bilateral upper extremities. LOWER EXTREMITIES: Calves are equal size bilaterally and non-tender. Scant edema. No discoloration. NEURO: Normal sensorium. No sensory or motor deficits noted. SKIN: No rash or jaundice noted. Medical Decision & Procedures ER Provider Diagnostic Interpretation: Radiology results as stated below per my review and radiologist interpretation: SINGLE VIEW CHEST CLINICAL HISTORY: Generalized abdominal pain. FINDINGS: An AP, portable, upright chest radiograph is compared to study dated 03/24/2017. The examination is degraded by portable technique, large body habitus, and patient rotation. A right sided central venous infusion port is unchanged in position. An electronic device projects over the left chest. The cardiomediastinal heart is top normal for projection. The pulmonary vasculature is noncongested. There are low lung volumes with bibasilar atelectasis. The lungs and pleural spaces are otherwise clear. No pneumothorax is seen. The skeletal structures are osteopenic. The bony thorax is grossly intact. Chronic posttraumatic deformity and postoperative change is noted in the left humerus. IMPRESSION: Low lung volumes with no acute cardiopulmonary abnormality. Electronically signed by: Aiden Randolph M.D. 04/03/2017 3:04 PM Dictated Date/Time: 04/03/2017 3:03 PM Laboratory Results 04/03/17 16:00 Red Blood Count 2.93, Mean Corpuscular Volume 104.1, Mean Corpuscular Hemoglobin 35.8, Mean Corpuscular Hemoglobin Concent 34.4, Mean Platelet Volume 9.8, Neutrophils (%) (Auto) 58.3, Lymphocytes (%) (Auto) 31.1, Monocytes (%) ( Auto) 7.7, Eosinophils (%) (Auto) 2.3, Basophils (%) (Auto) 0.6, Neutrophils # ( Auto) 3.04, Lymphocytes # (Auto) 1.62, Monocytes # (Auto) 0.40, Eosinophils # ( Auto) 0.12, Basophils # (Auto) 0.03 04/03/17 16:00 Test 04/03/17 16:00 04/03/17 16:20 04/03/17 18:00 White Blood Count 5.21 K/uL (4.8-10.8) Red Blood Count 2.93 M/uL (4.2-5.4) Hemoglobin 10.5 g/dL (12.0-16.0) Hematocrit 30.5 % (37-47) Mean Corpuscular Volume 104.1 fL (80-100) Mean Corpuscular Hemoglobin 35.8 pg (25-34) Mean Corpuscular Hemoglobin Concent 34.4 g/dl (32-36) Platelet Count 147 K/uL (130-400) Mean Platelet Volume 9.8 fL (7.4-10.4) Neutrophils (%) (Auto) 58.3 % Lymphocytes (%) (Auto) 31.1 % Monocytes (%) (Auto) 7.7 % Eosinophils (%) (Auto) 2.3 % Basophils (%) (Auto) 0.6 % Neutrophils # (Auto) 3.04 K/uL (1.4-6.5) Lymphocytes # (Auto) 1.62 K/uL (1.2-3.4) Monocytes # (Auto) 0.40 K/uL (0.11-0.59) Eosinophils # (Auto) 0.12 K/uL (0-0.5) Basophils # (Auto) 0.03 K/uL (0-0.2) RDW Standard Deviation 52.6 fL (36.4-46.3) RDW Coefficient of Variation 14.1 % (11.5-14.5) Immature Granulocyte % (Auto) 0.0 % Immature Granulocyte # (Auto) 0.00 K/uL (0.00-0.02) Prothrombin Time 12.4 SECONDS (9.0-12.0) Prothromb Time International Ratio 1.2 (0.9-1.1) Anion Gap 4.0 mmol/L (3-11) Est Creatinine Clear Calc Drug Dose 114.8 ml/min Estimated GFR () 119.1 Estimated GFR (Non- 102.8 BUN/Creatinine Ratio 27.2 (10-20) Calcium Level 8.2 mg/dl (8.5-10.1) Total Bilirubin 1.0 mg/dl (0.2-1) Direct Bilirubin 0.3 mg/dl (0-0.2) Aspartate Amino Transf (AST/SGOT) 49 U/L (15-37) Alanine Aminotransferase (ALT/SGPT) 38 U/L (12-78) Alkaline Phosphatase 196 U/L (45-117) Total Protein 6.5 gm/dl (6.4-8.2) Albumin 3.0 gm/dl (3.4-5.0) Lipase 221 U/L (73-393) Influenza Type A (RT-PCR) Neg for Influ A (NEG) Influenza Type A Antigen Neg for Influ A (NEG) Influenza Type B Antigen Neg for Influ B (NEG) Influenza Type B (RT-PCR) Neg for Influ B (NEG) Urine Color DK YELLOW Urine Appearance CLOUDY (CLEAR) Urine pH 8.5 (4.5-7.5) Urine Specific Palmer 1.022 (1.000-1.030) Urine Protein NEG (NEG) Urine Glucose (UA) NEG (NEG) Urine Ketones NEG (NEG) Urine Occult Blood NEG (NEG) Urine Nitrite NEG (NEG) Urine Bilirubin NEG (NEG) Urine Urobilinogen NEG (NEG) Urine Leukocyte Esterase NEG (NEG) Urine WBC (Auto) 0 /hpf (0-5) Urine RBC (Auto) 0-4 /hpf (0-4) Urine Hyaline Casts (Auto) 0 /lpf (0-5) Urine Epithelial Cells (Auto) 0-5 /lpf (0-5) Urine Bacteria (Auto) NEG (NEG) Ammonia 130.0 umol/L (11-32) Laboratory results reviewed by me Medications Administered Medications (Trade) Dose Ordered Sig/Danita Route Start Time Stop Time Status Last Admin Dose Admin Sodium Chloride 1,000 ml @ 999 mls/hr Q1H1M STAT IV 04/03/17 14:50 04/03/17 15:50 DC 04/03/17 16:06 999 MLS/HR Dextrose (Dextrose 50% 50ML Syringe) 50 ml NOW STAT IV 04/03/17 17:18 04/03/17 17:19 DC 04/03/17 17:36 50 ML Lactulose (Chronulac Syrup) 30 gm NOW STAT PO 04/03/17 18:52 04/03/17 19:03 DC 04/03/17 20:10 30 GM Prochlorperazine Edisylate (Compazine Inj) 10 mg NOW STAT IV 04/03/17 19:18 04/03/17 19:20 DC 04/03/17 20:08 10 MG Promethazine HCl (Phenergan 25MG Home Pack) 1 homepack UD ONCE PO 04/03/17 21:00 04/03/17 21:01 DC 04/03/17 21:16 1 HOMEPACK Heparin Sodium (Porcine) (Heparin 10 Unit/ ml 5 ml Flush) 5 ml STK-MED ONCE .ROUTE 04/03/17 21:10 04/03/17 21:11 DC 04/03/17 21:10 5 ML ED Course 1441: The patient was evaluated in room B11. A complete history and physical exam was performed. Medical Decision I reviewed the patient's past medical history, medications, and the nursing notes as described above. Differential Diagnoses: Hepatic encephalopathy, pneumonia, bronchitis, UTI, dehydration, and electrolyte abnormality. The patient is a 51-year-old woman with a past medical history of cirrhosis and hyperammonemia who presents emergency Department with generalized fatigue and confusion over the past several days per hpi. On arrival the patient is fatigued with slightly slowed speech, and slight asterixis on exam. Thus patient is afebrile with stable vital signs. Labs notable for an ammonia of 130. Ordered for lactulose. I discussed the patient with this value which is moderately high for the patient having been as high as 170 in the past. He feels that her symptoms have been worsening and prefers admission at this time. Given the patient's profound hyperammonemia patient meets admission criteria given her symptoms. Case d/w Dr. Cavazos, [facility] hospitalist, who will evaluate patient for possible admission. Case signed-out to Dr. Ovalle pending conclusions of hospitalist's evaluation. Medication Reconcilliation Current Medication List: was personally reviewed by me Blood Pressure Screening Patient's blood pressure: Normal blood pressure Blood pressure disposition: Did not require urgent referral Impression Primary Impression: Hepatic encephalopathy Additional Impression: Hyperammonemia Scribe Attestation The scribe's documentation has been prepared under my direction and personally reviewed by me in its entirety. I confirm that the note above accurately reflects all work, treatment, procedures, and medical decision making performed by me. Departure Information Prescriptions Promethazine (Phenergan ) 12.5 Mg Tab 1-2 TABS PO Q6, #14 TAB Prov: Mehran Ovalle MD 04/03/17 Referrals Olena Little DO (PCP) Patient Instructions My [facility] Problem Qualifiers
--- NOTE | 2017-04-03 15:05 | DIAGNOSTIC IMAGING REPORT ---
SINGLE VIEW CHEST CLINICAL HISTORY: Generalized abdominal pain. FINDINGS: An AP, portable, upright chest radiograph is compared to study dated 03/24/2017. The examination is degraded by portable technique, large body habitus, and patient rotation. A right sided central venous infusion port is unchanged in position. An electronic device projects over the left chest. The cardiomediastinal heart is top normal for projection. The pulmonary vasculature is noncongested. There are low lung volumes with bibasilar atelectasis. The lungs and pleural spaces are otherwise clear. No pneumothorax is seen. The skeletal structures are osteopenic. The bony thorax is grossly intact. Chronic posttraumatic deformity and postoperative change is noted in the left humerus. IMPRESSION: Low lung volumes with no acute cardiopulmonary abnormality. Electronically signed by: Aiden Randolph M.D. 04/03/2017 3:04 PM Dictated Date/Time: 04/03/2017 3:03 PM
[2017-04-03] MEDS ORDERED: RIZA10TA18 PO (15:44)
[2017-04-03 16:24] LABS: HEMATOCRIT 30.5 % (37-47); HEMOGLOBIN 10.5 g/dL (12.0-16.0); MEAN CELL VOLUME 104.1 fL (80-100); MEAN CORPUSCULAR HEMOGLOBIN 35.8 pg (25-34); MEAN CORPUSCULAR HGB CONC 34.4 g/dl (32-36); MEAN PLATELET VOLUME 9.8 fL (7.4-10.4); PLATELET COUNT 147 K/uL (130-400); RED CELL DISTRIBUTION WIDTH CV 14.1 % (11.5-14.5); RED CELL DISTRIBUTION WIDTH SD 52.6 fL (36.4-46.3); WHITE BLOOD COUNT 5.21 K/uL (4.8-10.8)
[2017-04-03 16:32] LABS: INR 1.2 (0.9-1.1)
[2017-04-03 16:46] LABS: BASO % 0.6 %; BASO ABS # 0.03 K/uL (0-0.2); EOS % 2.3 %; EOS ABS # 0.12 K/uL (0-0.5); LYMPH % 31.1 %; LYMPH ABS # 1.62 K/uL (1.2-3.4); MONO % 7.7 %; NEUT % 58.3 %; NEUT ABS # 3.04 K/uL (1.4-6.5)
[2017-04-03 16:49] LABS: CALCIUM 8.2 mg/dl (8.5-10.1); CREATININE 0.65 mg/dl (0.60-1.20); POTASSIUM 3.2 mmol/L (3.5-5.1)
[2017-04-03 16:51] LABS: TOTAL PROTEIN 6.5 gm/dl (6.4-8.2)
[2017-04-03 17:11] LABS: INFLUENZA B ANTIGEN Neg for Influ B (NEG)
[2017-04-03 17:12] LABS: INFLUENZA A PCR Neg for Influ A (NEG); INFLUENZA B PCR Neg for Influ B (NEG)
[2017-04-03] MEDS ORDERED: DEXTROSE 50% 50 ML SYR IV STA (17:18)
[2017-04-03] MEDS ORDERED: LACTULOSE SYRUP 20 GM/30 ML UDC PO STA (18:52)
[2017-04-03] MEDS ORDERED: PROCHLORPERAZINE 5 MG/ML 2 ML VIAL IV STA (19:18)
[2017-04-03 19:41] VITALS: O2SAT 96
[2017-04-03 20:11] VITALS: BP 106/65
[2017-04-03] MEDS ORDERED: PROM12.57 PO (20:56)
[2017-04-03] MEDS ORDERED: PHENERGAN 25MG HOMEPACK PO ONE (21:00)
[2017-04-03 21:10] VITALS: PULSE 80; O2SAT 98
--- NOTE | 2017-04-03 21:18 | EMERGENCY ROOM VISIT NOTE ---
ED Visit Note Pt signed out to me at change of shift. Patient's nausea has been fixed by Phenergan. I will discharge her with a protection for Phenergan. Patient was in agreement with the treatment plan. Problem List Medical Problems: (1) Asthma Status: Chronic (2) Bipol I, Rec Epis (Or Current) Depressed, Unspecified Status: Chronic (3) Cirrhosis Permanent Comment: from nonalcoholic fatty liver disease Status: Chronic (4) Diab Ashley Wo Comp Type Ii Or Nos/Not Uncontrolled Status: Chronic (5) Diabetes Status: Chronic (6) Diabetic gastroparesis Status: Chronic (7) Heart murmur Status: Chronic (8) History of hepatic encephalopathy Status: Chronic (9) Major depressive disorder with psychotic features Permanent Comment: with previous suicide attempts Status: Chronic (10) Migraines Status: Chronic (11) Myelodysplastic syndrome Status: Chronic (12) Pancytopenia Status: Chronic (13) Peptic ulcer disease Status: Chronic (14) Portal Hypertension Status: Chronic (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 Status: Chronic (16) Seizure disorder Permanent Comment: with pseudoseizures Status: Chronic Surgical Problems: (1) H/O nasal septoplasty Status: Chronic (2) History of appendectomy Status: Chronic (3) History of cholecystectomy Status: Chronic (4) History of hysterectomy Status: Chronic (5) History of kyphoplasty Permanent Comment: lumbar Status: Chronic (6) History of tonsillectomy Status: Chronic (7) s/p spinal stimulator placement Status: Chronic Current/Historical Medications Scheduled Ascorbic Acid (Vitamin C), 1,000 MG PO DAILY Bumetanide (Bumex), 1 MG PO QAM Cholecalciferol (Vitamin D), 5,000 UNITS PO DAILY Cranberry (Vaccinium Macrocarp (Cranberry Extract), 1 CAP PO BID Insulin Glargine (Lantus Solostar), 40 SC AMPM Insulin Lispro (Human) (Humalog Kwikpen), UNITS SC UD Lactulose (Chronulac), 30 ML PO BID Lecithin (Lecithin 3500), 1 CAP PO DAILY Levetiracetam (Levetiracetam), 2,000 MG PO BID Levothyroxine Sodium (Levothyroxine Sodium), 75 MCG PO QAM Lutein-Zeaxanthin (Lutein), 1 CAP PO DAILY Magnesium Oxide (Mg Supplement (Magnesium), 500 MG PO BID Mirtazapine (Mirtazapine), 1 TAB PO HS Multivitamin (Multivitamin), 1 TAB PO DAILY Omeprazole (Prilosec), 20 MG PO QAM Oxcarbazepine (Trileptal), 300 MG PO AMHS Probiotic Product (Probiotic), 1 CAP PO DAILY Promethazine (Phenergan ), 1-2 TABS PO Q6 Rifaximin (Xifaxan), 550 MG PO BID Sertraline HCl (Sertraline HCl), 25 MG PO DAILY Spironolactone (Aldactone), 25 MG PO every afternoon Topiramate (Topamax), 50 MG PO BID Topiramate (Topamax ), 25 MG PO BID Zinc Gluconate (Zinc), 50 MG PO BID Scheduled PRN Albuterol Hfa (Ventolin Hfa), 2-4 PUFFS INH Q6H PRN for Shortness of Breath Benzonatate (Benzonatate), 1 CAP PO TID PRN for Cough Dextromethorphan Polistirex (Delsym), 10 ML PO Q8 PRN for Cough Epinephrine (Epipen), 0.3 MG IM UD PRN for ALLERGIC REACTION Rizatriptan Benzoate (Maxalt), 10 MG PO DIRECTED PRN for Migraine Allergies Coded Allergies: Amoxicillin (Verified Allergy, Intermediate, HIVES; Has tolerated cephalosporins (Rocephin, Ceftin,Keflex, 04/03/17) Azithromycin (Verified Allergy, Intermediate, HIVES, 04/03/17) Baclofen (Verified Allergy, Intermediate, RASH, 04/03/17) Butalbital (Verified Allergy, Intermediate, HIVES, 04/03/17) Clarithromycin (Verified Allergy, Intermediate, RASH, 04/03/17) Dicyclomine (Verified Allergy, Intermediate, HIVES, 04/03/17) HIVES Penicillins (Verified Allergy, Intermediate, RASH; has tolerated cephs ( Rocephin, Keflex, Ceftin), 04/03/17) PT STATES SHE GETS WELTS FROM CIPRO,LEVAQUIN ALLERGY PER DR ROBLES Tetracyclines (Verified Allergy, Intermediate, DOXYCYCLINE-HIVES, 04/03/17) Sulindac (Verified Allergy, Mild, ALLERGY LISTED "CLONDORAL"--HIVES, 04/03/17) Adhesives (Verified Allergy, Unknown, RASH, DUODERM=RED,ITCHY, 04/03/17) PLASTIC TAPE IS OK!!! DUODERM=RED,ITCHY Metronidazole (Verified Allergy, Unknown, SEIZURE, 02/26/17) Tramadol (Verified Allergy, Unknown, SEIZURES, 04/03/17) Metoclopramide (Verified Adverse Reaction, Severe, SEIZURES, 04/03/17) Blueberry (Verified Adverse Reaction, Mild, STOMACH PAIN, 04/03/17) Furosemide (Verified Adverse Reaction, Unknown, HIVES, 04/03/17) Vital Signs Date Time Temp Pulse Resp B/P (MAP) Pulse Ox O2 Delivery O2 Flow Rate FiO2 04/03/17 21:10 80 20 98 04/03/17 21:05 77 25 99 04/03/17 21:00 75 21 97 04/03/17 20:55 77 19 96 04/03/17 20:50 80 17 100 04/03/17 20:45 78 18 99 04/03/17 20:40 77 20 98 04/03/17 20:35 76 20 97 04/03/17 20:30 77 21 97 04/03/17 20:25 77 19 98 04/03/17 20:20 78 19 97 04/03/17 20:15 81 23 99 04/03/17 20:11 74 20 106/65 98 Room Air 04/03/17 20:11 106/65 04/03/17 20:10 73 27 98 04/03/17 19:41 96 Room Air 04/03/17 18:40 77 21 04/03/17 18:35 71 19 04/03/17 18:30 72 24 04/03/17 18:25 73 18 04/03/17 18:20 73 20 04/03/17 18:15 72 20 96 Room Air 04/03/17 18:10 73 18 96 Room Air 04/03/17 17:55 73 18 96 Room Air 04/03/17 17:40 77 18 96 Room Air 04/03/17 17:25 75 18 96 Room Air 04/03/17 17:10 79 18 96 Room Air 04/03/17 16:55 73 18 96 Room Air 04/03/17 16:40 75 18 96 Room Air 04/03/17 16:25 83 18 96 Room Air 04/03/17 16:20 75 26 04/03/17 16:17 75 04/03/17 16:00 128/71 04/03/17 13:57 36.7 76 20 112/70 100 Room Air Laboratory Results 04/03/17 16:00 Red Blood Count 2.93, Mean Corpuscular Volume 104.1, Mean Corpuscular Hemoglobin 35.8, Mean Corpuscular Hemoglobin Concent 34.4, Mean Platelet Volume 9.8, Neutrophils (%) (Auto) 58.3, Lymphocytes (%) (Auto) 31.1, Monocytes (%) ( Auto) 7.7, Eosinophils (%) (Auto) 2.3, Basophils (%) (Auto) 0.6, Neutrophils # ( Auto) 3.04, Lymphocytes # (Auto) 1.62, Monocytes # (Auto) 0.40, Eosinophils # ( Auto) 0.12, Basophils # (Auto) 0.03 04/03/17 16:00 Test 04/03/17 16:00 04/03/17 16:20 04/03/17 18:00 White Blood Count 5.21 K/uL (4.8-10.8) Red Blood Count 2.93 M/uL (4.2-5.4) Hemoglobin 10.5 g/dL (12.0-16.0) Hematocrit 30.5 % (37-47) Mean Corpuscular Volume 104.1 fL (80-100) Mean Corpuscular Hemoglobin 35.8 pg (25-34) Mean Corpuscular Hemoglobin Concent 34.4 g/dl (32-36) Platelet Count 147 K/uL (130-400) Mean Platelet Volume 9.8 fL (7.4-10.4) Neutrophils (%) (Auto) 58.3 % Lymphocytes (%) (Auto) 31.1 % Monocytes (%) (Auto) 7.7 % Eosinophils (%) (Auto) 2.3 % Basophils (%) (Auto) 0.6 % Neutrophils # (Auto) 3.04 K/uL (1.4-6.5) Lymphocytes # (Auto) 1.62 K/uL (1.2-3.4) Monocytes # (Auto) 0.40 K/uL (0.11-0.59) Eosinophils # (Auto) 0.12 K/uL (0-0.5) Basophils # (Auto) 0.03 K/uL (0-0.2) RDW Standard Deviation 52.6 fL (36.4-46.3) RDW Coefficient of Variation 14.1 % (11.5-14.5) Immature Granulocyte % (Auto) 0.0 % Immature Granulocyte # (Auto) 0.00 K/uL (0.00-0.02) Prothrombin Time 12.4 SECONDS (9.0-12.0) Prothromb Time International Ratio 1.2 (0.9-1.1) Anion Gap 4.0 mmol/L (3-11) Est Creatinine Clear Calc Drug Dose 114.8 ml/min Estimated GFR () 119.1 Estimated GFR (Non- 102.8 BUN/Creatinine Ratio 27.2 (10-20) Calcium Level 8.2 mg/dl (8.5-10.1) Total Bilirubin 1.0 mg/dl (0.2-1) Direct Bilirubin 0.3 mg/dl (0-0.2) Aspartate Amino Transf (AST/SGOT) 49 U/L (15-37) Alanine Aminotransferase (ALT/SGPT) 38 U/L (12-78) Alkaline Phosphatase 196 U/L (45-117) Total Protein 6.5 gm/dl (6.4-8.2) Albumin 3.0 gm/dl (3.4-5.0) Lipase 221 U/L (73-393) Influenza Type A (RT-PCR) Neg for Influ A (NEG) Influenza Type A Antigen Neg for Influ A (NEG) Influenza Type B Antigen Neg for Influ B (NEG) Influenza Type B (RT-PCR) Neg for Influ B (NEG) Urine Color DK YELLOW Urine Appearance CLOUDY (CLEAR) Urine pH 8.5 (4.5-7.5) Urine Specific [place] 1.022 (1.000-1.030) Urine Protein NEG (NEG) Urine Glucose (UA) NEG (NEG) Urine Ketones NEG (NEG) Urine Occult Blood NEG (NEG) Urine Nitrite NEG (NEG) Urine Bilirubin NEG (NEG) Urine Urobilinogen NEG (NEG) Urine Leukocyte Esterase NEG (NEG) Urine WBC (Auto) 0 /hpf (0-5) Urine RBC (Auto) 0-4 /hpf (0-4) Urine Hyaline Casts (Auto) 0 /lpf (0-5) Urine Epithelial Cells (Auto) 0-5 /lpf (0-5) Urine Bacteria (Auto) NEG (NEG) Ammonia 130.0 umol/L (11-32) Medications Administered Medications (Trade) Dose Ordered Sig/Danita Route Start Time Stop Time Status Last Admin Dose Admin Sodium Chloride 1,000 ml @ 999 mls/hr Q1H1M STAT IV 04/03/17 14:50 04/03/17 15:50 DC 04/03/17 16:06 999 MLS/HR Dextrose (Dextrose 50% 50ML Syringe) 50 ml NOW STAT IV 04/03/17 17:18 04/03/17 17:19 DC 04/03/17 17:36 50 ML Lactulose (Chronulac Syrup) 30 gm NOW STAT PO 04/03/17 18:52 04/03/17 19:03 DC 04/03/17 20:10 30 GM Prochlorperazine Edisylate (Compazine Inj) 10 mg NOW STAT IV 04/03/17 19:18 04/03/17 19:20 DC 04/03/17 20:08 10 MG Promethazine HCl (Phenergan 25MG Home Pack) 1 homepack UD ONCE PO 04/03/17 21:00 04/03/17 21:01 DC 04/03/17 21:16 1 HOMEPACK Heparin Sodium (Porcine) (Heparin 10 Unit/ ml 5 ml Flush) 5 ml STK-MED ONCE .ROUTE 04/03/17 21:10 04/03/17 21:11 DC 04/03/17 21:10 5 ML Departure Information Impression Primary Impression: Nausea Dispostion Home / Self-Care Condition GOOD Prescriptions Promethazine (Phenergan ) 12.5 Mg Tab 1-2 TABS PO Q6, #14 TAB Prov: Mehran Ovalle MD 04/03/17 Referrals Olena Little DO (PCP) Forms HOME CARE DOCUMENTATION FORM, School Instructions, Work Instructions, IMPORTANT VISIT INFORMATION Patient Instructions My [facility] Additional Instructions You have been examined and treated today on an emergency basis only. This is not a substitute for, or an effort to provide, complete comprehensive medical care. It is impossible to recognize and treat all injuries or illnesses in a single emergency department visit. It is therefore important that you follow up closely with Dr Little. Call as soon as possible for an appointment. Thank you for your time and consideration. I look forward to speaking with you again soon. Please don't hesitate to call us if you have any questions.
== END 2017-04-03 21:00 | disposition home or self-care (01) ==
LOC: C.EDB 13:52
DX: K72.90 Hepatic failure, unspecified without coma (principal); E72.20 Disorder of urea cycle metabolism, unspecified; J45.909 Unspecified asthma, uncomplicated; F31.9 Bipolar disorder, unspecified; K74.60 Unspecified cirrhosis of liver; E11.43 Type 2 diabetes mellitus with diabetic autonomic (poly)neuropathy; K31.84 Gastroparesis; E03.9 Hypothyroidism, unspecified; K76.6 Portal hypertension; G40.909 Epilepsy, unspecified, not intractable, without status epilepticus; Z86.2 Personal history of diseases of the blood and blood-forming organs and certain disorders involving the immune mechanism; Z87.11 Personal history of peptic ulcer disease; Z90.89 Acquired absence of other organs; Z90.49 Acquired absence of other specified parts of digestive tract; Z90.710 Acquired absence of both cervix and uterus; Z97.8 Presence of other specified devices; Z79.4 Long term (current) use of insulin; Z81.8 Family history of other mental and behavioral disorders; Z82.49 Family history of ischemic heart disease and other diseases of the circulatory system

== ENCOUNTER 2017-04-06 15:11 | Emergency (ER) | payer BC, OTHER ==
[~2017-04-06] VITALS: Ht 165.1 cm; Wt 91.0 kg
[~2017-04-06 15:11] MED LIST changes: -LEVO1TAB33 PO; +PROM12.57 PO; -RANI150T2 PO; +RIZA10TA18 PO; -SUMA100T16 PO
[2017-04-06 15:15] VITALS: TEMP 36.4; Ht 165.1 cm; Wt 91.0 kg
[2017-04-06] MEDS ORDERED: SODIUM CHLORIDE 0.9% 1000ML 1,000 ML IV STA ×2 (15:31→18:35)
--- NOTE | 2017-04-06 15:43 | EMERGENCY ROOM VISIT NOTE ---
History Report prepared by Broderick: Stu Petit Under the Supervision of: Dr. Silverio Lemus M.D. First contact with patient: 15:27 Chief Complaint: LETHARGIC Stated Complaint: EXTREME LETHARGY, POOR BLADDER CONTROL Nursing Triage Summary: spouse reports pt has been lethargic all day has not gotten out of bed all night unusal for her, sleeping all day. pt does not answer questions appropriately thinks friday. did know my name in triage. sx started last night. pt c/o bilat abd pain . bsg was 155 1 hour ago per spouse History of Present Illness The patient is a 51 year old female who presents to the Emergency Room with complaints of constant fatigue that began a couple of days ago. She rates her discomfort as an 8/10 in severity. The patient is accompanied by her who states that the patient has been confused starting four days ago. He reports that she has not been able to answer questions appropriately. Her states that she was here recently for similar symptoms two days ago. He reports that her ammonium level was 130, which is high for her. Her states that she was discharged home and told to increase her lactulose, which he admits she did. He states that she has still been experiencing similar symptoms despite increasing her dosage. The patient denies abdominal pain. Source of History: patient, spouse/significant other Onset: a couple of days ago Position: other (global) Symptom Intensity: 8/10 Timing: constant Modifying Factors (Relieving): other (lactulose) Associated Symptoms: No abdominal pain Note: Associated symptoms: confusion Review of Systems See HPI for pertinent positives and negatives. A total of ten systems were reviewed and were otherwise negative. Past Medical & Surgical Medical Problems: (1) Asthma (2) Bipol I, Rec Epis (Or Current) Depressed, Unspecified (3) Borderline personality disorder (4) Cirrhosis (5) Depression (6) Diab Ashley Wo Comp Type Ii Or Nos/Not Uncontrolled (7) Diabetes (8) Diabetic gastroparesis (9) Encephalopathy (10) Heart murmur (11) History of hepatic encephalopathy (12) Hypernatremia (13) Hyponatremia (14) Hypothyroidism (15) Major depressive disorder with psychotic features (16) Migraines (17) Myelodysplastic syndrome (18) Pancytopenia (19) Past Psych Medications (20) Peptic ulcer disease (21) Pneumonia (22) Portal Hypertension (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 (24) Seizure disorder (25) Suicidal ideation Surgical Problems: (1) H/O nasal septoplasty (2) History of appendectomy (3) History of cholecystectomy (4) History of hysterectomy (5) History of kyphoplasty (6) History of tonsillectomy (7) s/p spinal stimulator placement Family History Depression Hypertension Social History Smoking Status: Never Smoker Alcohol Use: none Drug Use: none Marital Status: Housing Status: lives with significant other Occupation Status: disabled Current/Historical Medications Scheduled Ascorbic Acid (Vitamin C), 1,000 MG PO DAILY Bumetanide (Bumex), 1 MG PO QAM Cefdinir (Omnicef), 300 MG PO Q12H Cholecalciferol (Vitamin D), 5,000 UNITS PO DAILY Cranberry (Vaccinium Macrocarp (Cranberry Extract), 1 CAP PO BID Insulin Glargine (Lantus Solostar), 40 SC AMPM Insulin Lispro (Human) (Humalog Kwikpen), UNITS SC UD Lactulose (Chronulac), 30 ML PO BID Lecithin (Lecithin 3500), 1 CAP PO DAILY Levetiracetam (Levetiracetam), 2,000 MG PO BID Levothyroxine Sodium (Levothyroxine Sodium), 75 MCG PO QAM Lutein-Zeaxanthin (Lutein), 1 CAP PO DAILY Magnesium Oxide (Mg Supplement (Magnesium), 500 MG PO BID Mirtazapine (Mirtazapine), 1 TAB PO HS Multivitamin (Multivitamin), 1 TAB PO DAILY Omeprazole (Prilosec), 20 MG PO QAM Oxcarbazepine (Trileptal), 300 MG PO AMHS Probiotic Product (Probiotic), 1 CAP PO DAILY Promethazine (Phenergan ), 1-2 TABS PO Q6 Rifaximin (Xifaxan), 550 MG PO BID Sertraline HCl (Sertraline HCl), 25 MG PO DAILY Spironolactone (Aldactone), 25 MG PO every afternoon Topiramate (Topamax), 50 MG PO BID Topiramate (Topamax ), 25 MG PO BID Zinc Gluconate (Zinc), 50 MG PO BID Scheduled PRN Albuterol Hfa (Ventolin Hfa), 2-4 PUFFS INH Q6H PRN for Shortness of Breath Benzonatate (Benzonatate), 1 CAP PO TID PRN for Cough Dextromethorphan Polistirex (Delsym), 10 ML PO Q8 PRN for Cough Epinephrine (Epipen), 0.3 MG IM UD PRN for ALLERGIC REACTION Rizatriptan Benzoate (Maxalt), 10 MG PO DIRECTED PRN for Migraine Allergies Coded Allergies: Amoxicillin (Verified Allergy, Intermediate, HIVES; Has tolerated cephalosporins (Rocephin, Ceftin,Keflex, 04/06/17) Azithromycin (Verified Allergy, Intermediate, HIVES, 04/06/17) Baclofen (Verified Allergy, Intermediate, RASH, 04/06/17) Butalbital (Verified Allergy, Intermediate, HIVES, 04/06/17) Clarithromycin (Verified Allergy, Intermediate, RASH, 04/06/17) Dicyclomine (Verified Allergy, Intermediate, HIVES, 04/06/17) HIVES Penicillins (Verified Allergy, Intermediate, RASH; has tolerated cephs ( Rocephin, Keflex, Ceftin), 04/06/17) PT STATES SHE GETS WELTS FROM CIPRO,LEVAQUIN ALLERGY PER DR ROBLES Tetracyclines (Verified Allergy, Intermediate, DOXYCYCLINE-HIVES, 04/06/17) Sulindac (Verified Allergy, Mild, ALLERGY LISTED "CLONDORAL"--HIVES, 04/06/17) Adhesives (Verified Allergy, Unknown, RASH, DUODERM=RED,ITCHY, 04/06/17) PLASTIC TAPE IS OK!!! DUODERM=RED,ITCHY Metronidazole (Verified Allergy, Unknown, SEIZURE, 04/06/17) Tramadol (Verified Allergy, Unknown, SEIZURES, 04/06/17) Metoclopramide (Verified Adverse Reaction, Severe, SEIZURES, 04/06/17) Blueberry (Verified Adverse Reaction, Mild, STOMACH PAIN, 04/06/17) Furosemide (Verified Adverse Reaction, Unknown, HIVES, 04/06/17) Physical Exam Vital Signs Date Time Temp Pulse Resp B/P (MAP) Pulse Ox O2 Delivery O2 Flow Rate FiO2 04/06/17 21:29 76 16 124/78 98 04/06/17 19:59 85 16 138/80 98 Room Air 04/06/17 16:46 85 16 147/69 98 Room Air 04/06/17 15:15 36.4 90 18 142/71 100 Room Air Physical Exam GENERAL: Awake, fatigued appearing, in no distress HENT: Normocephalic, atraumatic. Dry cracking mucous membranes. EYES: Normal conjunctiva. Sclera non-icteric. NECK: Supple. No nuchal rigidity. FROM. No JVD. RESPIRATORY: Clear to auscultation. CARDIAC: Regular rate, normal rhythm. Extremities warm and well perfused. Pulses equal. ABDOMEN: Soft, non-distended. No tenderness to palpation. No rebound or guarding. No masses. RECTAL: Deferred. MUSCULOSKELETAL: Chest examination reveals no tenderness. The back is symmetrical on inspection without obvious abnormality. There is no CVA tenderness to palpation. No joint edema. LOWER EXTREMITIES: Calves are equal size bilaterally and non-tender. No edema. No discoloration. NEURO: No gross sensory or motor deficits. . Mild asterixis. SKIN: No rash or jaundice noted. Medical Decision & Procedures ER Provider Diagnostic Interpretation: X-ray: Per my interpretation, radiologist review. CHEST ONE VIEW PORTABLE CLINICAL HISTORY: Abdominal pain. COMPARISON STUDY: Chest radiograph April 03, 2017. FINDINGS: A left humeral proximal internal fixation is incidentally noted. A right internal jugular [id number] is in place. Electronic device projects of the left hemithorax. Lung volumes are diminished. There is no pneumothorax or pleural effusion. Enlargement of the cardiac silhouette is noted. There is asymmetric hazy left lung opacity and suspected pulmonary vascular congestion. IMPRESSION: Apparent pulmonary vascular congestion and asymmetric left lung hazy opacity. The findings may be technical, related to a hypoventilatory study. However, asymmetric edema or an infectious process could appear similar. Electronically signed by: Rolan Chan M.D. 04/06/2017 5:06 PM Dictated Date/Time: 04/06/2017 5:01 PM Laboratory Results 04/06/17 15:55 Red Blood Count 3.54, Mean Corpuscular Volume 105.9, Mean Corpuscular Hemoglobin 37.0, Mean Corpuscular Hemoglobin Concent 34.9, Mean Platelet Volume 10.0, Neutrophils (%) (Auto) 65.7, Lymphocytes (%) (Auto) 24.4, Monocytes (%) ( Auto) 6.5, Eosinophils (%) (Auto) 2.5, Basophils (%) (Auto) 0.7, Neutrophils # ( Auto) 2.64, Lymphocytes # (Auto) 0.98, Monocytes # (Auto) 0.26, Eosinophils # ( Auto) 0.10, Basophils # (Auto) 0.03 04/06/17 15:55 Test 04/06/17 15:55 04/06/17 16:39 04/06/17 17:21 04/06/17 19:23 White Blood Count 4.02 K/uL (4.8-10.8) Red Blood Count 3.54 M/uL (4.2-5.4) Hemoglobin 13.1 g/dL (12.0-16.0) Hematocrit 37.5 % (37-47) Mean Corpuscular Volume 105.9 fL (80-100) Mean Corpuscular Hemoglobin 37.0 pg (25-34) Mean Corpuscular Hemoglobin Concent 34.9 g/dl (32-36) Platelet Count 121 K/uL (130-400) Mean Platelet Volume 10.0 fL (7.4-10.4) Neutrophils (%) (Auto) 65.7 % Lymphocytes (%) (Auto) 24.4 % Monocytes (%) (Auto) 6.5 % Eosinophils (%) (Auto) 2.5 % Basophils (%) (Auto) 0.7 % Neutrophils # (Auto) 2.64 K/uL (1.4-6.5) Lymphocytes # (Auto) 0.98 K/uL (1.2-3.4) Monocytes # (Auto) 0.26 K/uL (0.11-0.59) Eosinophils # (Auto) 0.10 K/uL (0-0.5) Basophils # (Auto) 0.03 K/uL (0-0.2) RDW Standard Deviation 56.8 fL (36.4-46.3) RDW Coefficient of Variation 14.8 % (11.5-14.5) Immature Granulocyte % (Auto) 0.2 % Immature Granulocyte # (Auto) 0.01 K/uL (0.00-0.02) Prothrombin Time 12.3 SECONDS (9.0-12.0) Prothromb Time International Ratio 1.2 (0.9-1.1) Anion Gap 6.0 mmol/L (3-11) Est Creatinine Clear Calc Drug Dose 115.9 ml/min Estimated GFR () 119.7 Estimated GFR (Non- 103.3 BUN/Creatinine Ratio 24.1 (10-20) Calcium Level 8.7 mg/dl (8.5-10.1) Total Bilirubin 1.5 mg/dl (0.2-1) Direct Bilirubin 0.5 mg/dl (0-0.2) Aspartate Amino Transf (AST/SGOT) 51 U/L (15-37) Alanine Aminotransferase (ALT/SGPT) 42 U/L (12-78) Alkaline Phosphatase 199 U/L (45-117) Ammonia 81.0 umol/L (11-32) Total Protein 6.6 gm/dl (6.4-8.2) Albumin 3.2 gm/dl (3.4-5.0) Lipase 124 U/L (73-393) Influenza Type A (RT-PCR) Neg for Influ A (NEG) Influenza Type A Antigen Neg for Influ A (NEG) Influenza Type B Antigen Neg for Influ B (NEG) Influenza Type B (RT-PCR) Neg for Influ B (NEG) Urine Color DK YELLOW Urine Appearance CLOUDY (CLEAR) Urine pH 7.0 (4.5-7.5) Urine Specific [place] 1.020 (1.000-1.030) Urine Protein NEG (NEG) Urine Glucose (UA) NEG (NEG) Urine Ketones NEG (NEG) Urine Occult Blood TRACE (NEG) Urine Nitrite NEG (NEG) Urine Bilirubin NEG (NEG) Urine Urobilinogen NEG (NEG) Urine Leukocyte Esterase LARGE (NEG) Urine WBC (Auto) >30 /hpf (0-5) Urine RBC (Auto) 0-4 /hpf (0-4) Urine Hyaline Casts (Auto) 1-5 /lpf (0-5) Urine Epithelial Cells (Auto) 5-10 /lpf (0-5) Urine Bacteria (Auto) 4+ (NEG) Laboratory results reviewed by me Medications Administered Medications (Trade) Dose Ordered Sig/Danita Route Start Time Stop Time Status Last Admin Dose Admin Sodium Chloride 1,000 ml @ 999 mls/hr Q1H1M STAT IV 04/06/17 15:31 04/06/17 16:31 DC 04/06/17 16:04 999 MLS/HR Lactulose (Chronulac Syrup) 40 gm STK-MED ONCE .ROUTE 04/06/17 16:01 04/06/17 16:02 DC 04/06/17 16:07 30 GM Sodium Chloride 1,000 ml @ 999 mls/hr Q1H1M STAT IV 04/06/17 18:35 04/06/17 19:35 DC 04/06/17 17:52 999 MLS/HR Rizatriptan Benzoate (Maxalt Tab) 10 mg NOW STAT PO 04/06/17 19:31 04/06/17 19:34 DC 04/06/17 19:59 10 MG Ceftriaxone Sodium (Rocephin Inj) 1 gm NOW STAT IV 04/06/17 20:08 04/06/17 20:10 DC 04/06/17 20:16 1 GM Heparin Sodium (Porcine) (Heparin 10 Unit/ ml 5 ml Flush) 5 ml STK-MED ONCE .ROUTE 04/06/17 20:40 04/06/17 20:41 DC 04/06/17 20:40 5 ML ED Course 1528: The patient was evaluated in room B12B. A complete history and physical exam was performed. 1924: I reevaluated the patient and she is doing better. She still wants to be admitted. 2009: I reevaluated the patient. Discussed results and discharge instructions: She verbalized understanding and agreement. The patient is ready for discharge. Medical Decision I reviewed the patient's past medical history, medications, and the nursing notes as described above. The patient's presentation and history were concerning for Hepatic encephalopathy, hyperammonemia pneumonia, bronchitis, UTI, dehydration, and electrolyte or metabolic abnormalities . 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 On arrival the patient is fatigued appearing but in NAD, AFVSS. Labs demonstrate Ammonia improved to 80 today. WBC 4. +UA for infection. BUN/Cr c/w patient dry clinically status. CXR negative. Treated with CTX and RXf or omnicef. Improved after IVF. Findings and plan for follow-up reviewed with patient. Patient agreeable and d/c'd per discharge instructions. Medication Reconcilliation Current Medication List: was personally reviewed by me Blood Pressure Screening Patient's blood pressure: Elevated blood pressure Blood pressure disposition: Elevated BP felt to be situational Impression Primary Impression: UTI (urinary tract infection) Additional Impressions: Dehydration Weakness generalized Hyperammonemia Scribe Attestation The scribe's documentation has been prepared under my direction and personally reviewed by me in its entirety. I confirm that the note above accurately reflects all work, treatment, procedures, and medical decision making performed by me. Departure Information Dispostion Home / Self-Care Prescriptions Cefdinir (OMNICEF) 300 Mg Cap 300 MG PO Q12H for 7 Days, #14 CAP Prov: Silverio Lemus M.D. 04/06/17 Referrals No Doctor, Assigned (PCP) Patient Instructions Ammonia, ED Dehydration, My [facility], Urinary Tract Infecs Women Additional Instructions Please follow up with your primary care physician in the next 1-3 days for re- evaluation. Your symptoms most likely due to a urinary tract infection and mild dehydration. Her ammonia was improved from recent now 80 down from 130. Otherwise, your exam, EKG, chest xray, and lab results did not show signs of an emergent condition at this time. Take cefdinir as directed. Ensure hydration. Continue your lactulose as instructed. Return to the emergency department for worsening symptoms as described in the accompanying instructions. Problem Qualifiers
[2017-04-06] MEDS ORDERED: LACTULOSE SYRUP 20 GM/30 ML UDC ONE (16:01)
[2017-04-06 16:06] LABS: BASO % 0.7 %; BASO ABS # 0.03 K/uL (0-0.2); EOS % 2.5 %; HEMATOCRIT 37.5 % (37-47); HEMOGLOBIN 13.1 g/dL (12.0-16.0); IG# 0.01 K/uL (0.00-0.02); LYMPH % 24.4 %; LYMPH ABS # 0.98 K/uL (1.2-3.4); MEAN CELL VOLUME 105.9 fL (80-100); MEAN CORPUSCULAR HGB CONC 34.9 g/dl (32-36); MONO % 6.5 %; MONO ABS # 0.26 K/uL (0.11-0.59); NEUT % 65.7 %; NEUT ABS # 2.64 K/uL (1.4-6.5); PLATELET COUNT 121 K/uL (130-400); RED CELL DISTRIBUTION WIDTH CV 14.8 % (11.5-14.5); RED CELL DISTRIBUTION WIDTH SD 56.8 fL (36.4-46.3); WHITE BLOOD COUNT 4.02 K/uL (4.8-10.8)
[2017-04-06 16:13] LABS: INR 1.2 (0.9-1.1)
[2017-04-06 16:26] LABS: ALBUMIN 3.2 gm/dl (3.4-5.0); CALCIUM 8.7 mg/dl (8.5-10.1); CREATININE 0.64 mg/dl (0.60-1.20); POTASSIUM 3.3 mmol/L (3.5-5.1)
[2017-04-06 16:28] LABS: TOTAL PROTEIN 6.6 gm/dl (6.4-8.2)
--- NOTE | 2017-04-06 17:07 | DIAGNOSTIC IMAGING REPORT ---
CHEST ONE VIEW PORTABLE CLINICAL HISTORY: Abdominal pain. COMPARISON STUDY: Chest radiograph April 03, 2017. FINDINGS: A left humeral proximal internal fixation is incidentally noted. A right internal jugular Jodfrz-s-Hdqy is in place. Electronic device projects of the left hemithorax. Lung volumes are diminished. There is no pneumothorax or pleural effusion. Enlargement of the cardiac silhouette is noted. There is asymmetric hazy left lung opacity and suspected pulmonary vascular congestion. IMPRESSION: Apparent pulmonary vascular congestion and asymmetric left lung hazy opacity. The findings may be technical, related to a hypoventilatory study. However, asymmetric edema or an infectious process could appear similar. Electronically signed by: Rolan Chan M.D. 04/06/2017 5:06 PM Dictated Date/Time: 04/06/2017 5:01 PM
[2017-04-06 17:16] LABS: INFLUENZA B ANTIGEN Neg for Influ B (NEG)
[2017-04-06 18:42] LABS: INFLUENZA A PCR Neg for Influ A (NEG); INFLUENZA B PCR Neg for Influ B (NEG)
[2017-04-06] MEDS ORDERED: RIZATRIPTAN BENZOATE 10 MG TAB PO STA (19:31)
[2017-04-06] MEDS ORDERED: CEFTRIAXONE SOD INJ 1 GM ADDVIAL IV STA (20:08)
[2017-04-06] MEDS ORDERED: CEFD300C2 PO (20:34)
[2017-04-06 21:29] VITALS: BP 124/78; PULSE 76; O2SAT 98
--- NOTE | 2017-04-08 11:33 | Pharmacy Progress Note ---
ED Pharmacist Culture FollowUp Date of Service: Apr 08, 2017. Patient was sent home with a prescription for Cefdinir 300mg PO BID x 7 days, which should cover the proteus mirabilis growing from the patient's URINE culture.
== END 2017-04-06 21:30 | disposition home or self-care (01) ==
LOC: C.EDB 15:12
DX: N39.0 Urinary tract infection, site not specified (principal); E86.0 Dehydration; R53.1 Weakness; E72.20 Disorder of urea cycle metabolism, unspecified; J45.909 Unspecified asthma, uncomplicated; F31.9 Bipolar disorder, unspecified; F60.3 Borderline personality disorder; K74.60 Unspecified cirrhosis of liver; E11.43 Type 2 diabetes mellitus with diabetic autonomic (poly)neuropathy; F32.9 Major depressive disorder, single episode, unspecified; G93.40 Encephalopathy, unspecified; R01.1 Cardiac murmur, unspecified; E03.9 Hypothyroidism, unspecified; G43.909 Migraine, unspecified, not intractable, without status migrainosus; D46.9 Myelodysplastic syndrome, unspecified; D61.818 Other pancytopenia; K27.9 Peptic ulcer, site unspecified, unspecified as acute or chronic, without hemorrhage or perforation; K76.6 Portal hypertension; F45.9 Somatoform disorder, unspecified; G40.909 Epilepsy, unspecified, not intractable, without status epilepticus; Z90.710 Acquired absence of both cervix and uterus; Z96.9 Presence of functional implant, unspecified; Z79.4 Long term (current) use of insulin; Z82.49 Family history of ischemic heart disease and other diseases of the circulatory system; Z81.8 Family history of other mental and behavioral disorders

== ENCOUNTER 2017-04-08 07:08 | Emergency (ER) | payer BC, OTHER ==
[~2017-04-08] VITALS: Ht 165.1 cm; Wt 96.3 kg
[2017-04-08 07:22] VITALS: TEMP 36.8
--- NOTE | 2017-04-08 07:41 | EMERGENCY ROOM VISIT NOTE ---
History Report prepared by Broderick: John Marino Under the Supervision of: Dr. Alexis Jones M.D. First contact with patient: 07:24 Chief Complaint: DIZZY Stated Complaint: DIZZINESS/NAUSEA Nursing Triage Summary: Recent complaints of nausea, dizziness and generalized weakness. Pt stated that she is currently being treated for a UTI. History of Present Illness The patient is a 51 year old white female with a past medical history of asthma , bipolar disorder, borderline personality disorder, cirrhosis, depression, diabetes, a heart murmur, and portal hypertension who presents to the ED with a cc of generalized weakness beginning recently. Positive nausea, dizziness, and left leg numbness. Negative fevers or abdominal pain. She believes that she is currently hypotensive, but she did not take her blood sugar levels. She states she is taking her medications regularly. She admits that she has not been eating or drinking normally. She is currently being treated for a UTI. Source of History: patient Onset: recently Position: other (Global) Symptom Intensity: moderate Quality: other (Generalized Weakness) Timing: constant Associated Symptoms: + nausea, + numbness (left leg), No fevers, No abdominal pain Note: She is experiencing some dizziness. Review of Systems See HPI for pertinent positives and negatives. A total of ten systems were reviewed and were otherwise negative. Past Medical & Surgical Medical Problems: (1) Asthma (2) Bipol I, Rec Epis (Or Current) Depressed, Unspecified (3) Borderline personality disorder (4) Cirrhosis (5) Depression (6) Diab Ashley Wo Comp Type Ii Or Nos/Not Uncontrolled (7) Diabetes (8) Diabetic gastroparesis (9) Encephalopathy (10) Heart murmur (11) History of hepatic encephalopathy (12) Hypernatremia (13) Hyponatremia (14) Hypothyroidism (15) Major depressive disorder with psychotic features (16) Migraines (17) Myelodysplastic syndrome (18) Pancytopenia (19) Past Psych Medications (20) Peptic ulcer disease (21) Pneumonia (22) Portal Hypertension (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 (24) Seizure disorder (25) Suicidal ideation Surgical Problems: (1) H/O nasal septoplasty (2) History of appendectomy (3) History of cholecystectomy (4) History of hysterectomy (5) History of kyphoplasty (6) History of tonsillectomy (7) s/p spinal stimulator placement Family History Depression Hypertension Social History Smoking Status: Never Smoker Alcohol Use: none Drug Use: none Marital Status: Housing Status: lives with significant other Occupation Status: disabled Current/Historical Medications Scheduled Ascorbic Acid (Vitamin C), 1,000 MG PO DAILY Bumetanide (Bumex), 1 MG PO QAM Cefdinir (Omnicef), 300 MG PO Q12H Cholecalciferol (Vitamin D), 5,000 UNITS PO DAILY Cranberry (Vaccinium Macrocarp (Cranberry Extract), 1 CAP PO BID Insulin Glargine (Lantus Solostar), 40 SC AMPM Insulin Lispro (Human) (Humalog Kwikpen), UNITS SC UD Lactulose (Chronulac), 30 ML PO BID Lecithin (Lecithin 3500), 1 CAP PO DAILY Levetiracetam (Levetiracetam), 2,000 MG PO BID Levothyroxine Sodium (Levothyroxine Sodium), 75 MCG PO QAM Lutein-Zeaxanthin (Lutein), 1 CAP PO DAILY Magnesium Oxide (Mg Supplement (Magnesium), 500 MG PO BID Mirtazapine (Mirtazapine), 1 TAB PO HS Multivitamin (Multivitamin), 1 TAB PO DAILY Omeprazole (Prilosec), 20 MG PO QAM Oxcarbazepine (Trileptal), 300 MG PO AMHS Probiotic Product (Probiotic), 1 CAP PO DAILY Promethazine (Phenergan ), 1-2 TABS PO Q6 Rifaximin (Xifaxan), 550 MG PO BID Sertraline HCl (Sertraline HCl), 25 MG PO DAILY Spironolactone (Aldactone), 25 MG PO every afternoon Topiramate (Topamax), 50 MG PO BID Topiramate (Topamax ), 25 MG PO BID Zinc Gluconate (Zinc), 50 MG PO BID Scheduled PRN Albuterol Hfa (Ventolin Hfa), 2-4 PUFFS INH Q6H PRN for Shortness of Breath Benzonatate (Benzonatate), 1 CAP PO TID PRN for Cough Dextromethorphan Polistirex (Delsym), 10 ML PO Q8 PRN for Cough Epinephrine (Epipen), 0.3 MG IM UD PRN for ALLERGIC REACTION Rizatriptan Benzoate (Maxalt), 10 MG PO DIRECTED PRN for Migraine Allergies Coded Allergies: Amoxicillin (Verified Allergy, Intermediate, HIVES; Has tolerated cephalosporins (Rocephin, Ceftin,Keflex, 04/08/17) Azithromycin (Verified Allergy, Intermediate, HIVES, 04/08/17) Baclofen (Verified Allergy, Intermediate, RASH, 04/08/17) Butalbital (Verified Allergy, Intermediate, HIVES, 04/08/17) Clarithromycin (Verified Allergy, Intermediate, RASH, 04/08/17) Dicyclomine (Verified Allergy, Intermediate, HIVES, 04/08/17) HIVES Penicillins (Verified Allergy, Intermediate, RASH; has tolerated cephs ( Rocephin, Keflex, Ceftin), 04/08/17) PT STATES SHE GETS WELTS FROM CIPRO,LEVAQUIN ALLERGY PER DR ROBLES Tetracyclines (Verified Allergy, Intermediate, DOXYCYCLINE-HIVES, 04/08/17) Sulindac (Verified Allergy, Mild, ALLERGY LISTED "CLONDORAL"--HIVES, 04/08/17) Adhesives (Verified Allergy, Unknown, RASH, DUODERM=RED,ITCHY, 04/08/17) PLASTIC TAPE IS OK!!! DUODERM=RED,ITCHY Clavulanic Acid (Unverified Allergy, Unknown, diahrea , 04/08/17) Metronidazole (Verified Allergy, Unknown, SEIZURE, 04/08/17) Tramadol (Verified Allergy, Unknown, SEIZURES, 04/08/17) Metoclopramide (Verified Adverse Reaction, Severe, SEIZURES, 04/08/17) Blueberry (Verified Adverse Reaction, Mild, STOMACH PAIN, 04/08/17) Furosemide (Verified Adverse Reaction, Unknown, HIVES, 04/08/17) Physical Exam Vital Signs Date Time Temp Pulse Resp B/P (MAP) Pulse Ox O2 Delivery O2 Flow Rate FiO2 04/08/17 12:54 77 18 123/62 98 04/08/17 11:01 79 04/08/17 10:40 98 Room Air 04/08/17 10:30 109 18 137/114 98 Room Air 04/08/17 09:10 75 18 121/63 98 Room Air 04/08/17 08:02 96 Room Air 04/08/17 07:22 36.8 77 18 177/122 100 Room Air 04/08/17 07:22 79 Physical Exam GENERAL: Awake, alert, well-appearing, NAD HENT: Normocephalic, atraumatic. EYES: Normal conjunctiva. Sclera non-icteric. NECK: Supple. No nuchal rigidity. FROM. RESPIRATORY: CTAB, no rhonchi, wheezing, crackles CARDIAC: RRR, no MRG ABDOMEN: Soft, NTND, BS+ MSK: No chest wall TTP, no LE edema NEURO: GCS 15, CN 2-12 intact, generalized weakness, sensory deficit to the LLE with 1/5 strength. SKIN: No rash or jaundice noted. Medical Decision & Procedures ER Provider Diagnostic Interpretation: Radiology results as stated below per my review and radiologist interpretation: HEAD CT NONCONTRAST CT DOSE: 537.48 mGy.cm HISTORY: EVALUATE WEAKNESS TECHNIQUE: Multiaxial CT images of the head were performed without the use of intravenous contrast. Automated exposure control was utilized for this study. A dose lowering technique was utilized adhering to the principles of ALARA. Comparison: Head CT 02/26/2017. Findings: Paranasal sinuses are clear. Opacified bilateral mastoid air cells and a small amount of fluid within the right middle ear cavity. This is new from the prior studies. The calvarium and skull base are intact. The ventricles and sulci are within normal limits. There is no mass, hematoma, midline shift, or acute infarct. Impression: No acute intracranial abnormality. Interval development of bilateral mastoid effusions. Electronically signed by: Talon Cruz M.D. 04/08/2017 8:48 AM Dictated Date/Time: 04/08/2017 8:45 AM CHEST ONE VIEW PORTABLE HISTORY: EVALUATE WEAKNESS COMPARISON: Chest 04/06/2017. FINDINGS: No pneumothorax. No pleural effusions. Right jugular Port-A-Cath terminates in the distal SVC. The heart remains enlarged. Left perihilar hazy airspace opacity has resolved. There is mild central pulmonary vascular congestion without overt edema. Low lung volumes. Electronic stimulator device is seen within the left chest with the leads extending to the lower cervical region. Stable right deviation of the trachea. Postoperative changes within the proximal left humerus IMPRESSION: 1. Stable cardiomegaly. 2. Mild central pulmonary vascular congestion without overt edema. Electronically signed by: Talon Cruz M.D. 04/08/2017 8:43 AM Dictated Date/Time: 04/08/2017 8:41 AM Laboratory Results 04/08/17 07:55 Red Blood Count 2.88, Mean Corpuscular Volume 104.2, Mean Corpuscular Hemoglobin 36.8, Mean Corpuscular Hemoglobin Concent 35.3, Mean Platelet Volume 10.2, Neutrophils (%) (Auto) 50.9, Lymphocytes (%) (Auto) 36.6, Monocytes (%) ( Auto) 9.3, Eosinophils (%) (Auto) 2.7, Basophils (%) (Auto) 0.5, Neutrophils # ( Auto) 1.92, Lymphocytes # (Auto) 1.38, Monocytes # (Auto) 0.35, Eosinophils # ( Auto) 0.10, Basophils # (Auto) 0.02 04/08/17 07:55 Test 04/08/17 07:55 04/08/17 08:10 White Blood Count 3.77 K/uL (4.8-10.8) Red Blood Count 2.88 M/uL (4.2-5.4) Hemoglobin 10.6 g/dL (12.0-16.0) Hematocrit 30.0 % (37-47) Mean Corpuscular Volume 104.2 fL (80-100) Mean Corpuscular Hemoglobin 36.8 pg (25-34) Mean Corpuscular Hemoglobin Concent 35.3 g/dl (32-36) Platelet Count 112 K/uL (130-400) Mean Platelet Volume 10.2 fL (7.4-10.4) Neutrophils (%) (Auto) 50.9 % Lymphocytes (%) (Auto) 36.6 % Monocytes (%) (Auto) 9.3 % Eosinophils (%) (Auto) 2.7 % Basophils (%) (Auto) 0.5 % Neutrophils # (Auto) 1.92 K/uL (1.4-6.5) Lymphocytes # (Auto) 1.38 K/uL (1.2-3.4) Monocytes # (Auto) 0.35 K/uL (0.11-0.59) Eosinophils # (Auto) 0.10 K/uL (0-0.5) Basophils # (Auto) 0.02 K/uL (0-0.2) RDW Standard Deviation 54.2 fL (36.4-46.3) RDW Coefficient of Variation 14.3 % (11.5-14.5) Immature Granulocyte % (Auto) 0.0 % Immature Granulocyte # (Auto) 0.00 K/uL (0.00-0.02) Prothrombin Time 11.9 SECONDS (9.0-12.0) Prothromb Time International Ratio 1.1 (0.9-1.1) Activated Partial Thromboplast Time 40.6 SECONDS (21.0-31.0) Partial Thromboplastin Ratio 1.6 Anion Gap 5.0 mmol/L (3-11) Est Creatinine Clear Calc Drug Dose 138.9 ml/min Estimated GFR () 125.9 Estimated GFR (Non- 108.6 BUN/Creatinine Ratio 36.6 (10-20) Calcium Level 7.9 mg/dl (8.5-10.1) Magnesium Level 1.8 mg/dl (1.8-2.4) Total Bilirubin 1.2 mg/dl (0.2-1) Direct Bilirubin 0.4 mg/dl (0-0.2) Aspartate Amino Transf (AST/SGOT) 42 U/L (15-37) Alanine Aminotransferase (ALT/SGPT) 36 U/L (12-78) Alkaline Phosphatase 205 U/L (45-117) Ammonia 80.0 umol/L (11-32) Troponin I < 0.015 ng/ml (0-0.045) Total Protein 6.1 gm/dl (6.4-8.2) Albumin 2.8 gm/dl (3.4-5.0) Lipase 166 U/L (73-393) Thyroid Stimulating Hormone (TSH) 0.866 uIu/ml (0.300-4.500) Bedside Glucose 82 mg/dl (70-90) Laboratory results reviewed by me Medications Administered Medications (Trade) Dose Ordered Sig/Danita Route Start Time Stop Time Status Last Admin Dose Admin Potassium Chloride (Klor-Con Tab) 40 meq NOW STAT PO 04/08/17 10:12 04/08/17 10:13 DC 04/08/17 11:25 40 MEQ Calcium Gluconate (Calcium Gluconate 10%) 1,000 mg STK-MED ONCE IV 04/08/17 11:18 04/08/17 11:19 DC 04/08/17 11:25 1,000 MG Heparin Sodium (Porcine) (Heparin 100 Unit/ml 5ml Flush) 5 ml STK-MED ONCE .ROUTE 04/08/17 12:40 04/08/17 12:41 DC 04/08/17 12:40 5 ML ECG Indication: nausea Rate (beats per minute): 78 Rhythm: normal sinus Findings: other (normal axis, normal intervals, no STS changes or TWI) ED Course 0724: The patient was evaluated in room A2. A complete history and physical exam was performed. 1050: I [place] [facility] [place] time. He informed me that she has a history of confabulation where she will not move her extremities. This was seen in the past. She has also been known to self inject her insulin. 1117: I reevaluated the patient. Discussed results and discharge instructions: She verbalized understanding and agreement. The patient is ready for discharge. Medical Decision The patient is a 51 year old white female with a past medical history of asthma , bipolar disorder, borderline personality disorder, cirrhosis, depression, diabetes, a heart murmur, and portal hypertension who presents to the ED with a cc of generalized weakness beginning recently. Positive nausea, dizziness, and left leg numbness. Negative fevers or abdominal pain. Differential diagnosis: Etiologies such as metabolic, infection, hypo/hyperglycemia, electrolyte abnormalities, cardiac sources, intracerebral event, toxicologic, neurologic, as well as others were entertained. Patient was seen and evaluated the bedside. Patient does have a history of multiple medical complaints and multiple visits. On exam patient states that she feels like her blood sugar is low. Patient did have her sugar checked was 40. Patient was given food and drink without issue. Patient initially was complaints left lower extremity weakness the patient would not move with the exception of some movement of the toes even upon pinprick. Have blood work completed along with CT of the head and chest x-ray. Patient does have an elevated ammonia however this chronic and does not need to be treated as the patient is alert and oriented. Patient CT negative acute. Patient's other blood work fairly unremarkable with exception of her initial low blood glucose. Repeat shows that it is normal. Upon reassessment the patient the patient still would not move that left lower extremity. I did speak with the hospitalist who states of the patient does have a known history of malingering was described as confabulation. Upon telling the patient that she would be discharged in stable patient was able to ambulate and move without issue. Patient was deemed suitable for outpatient follow-up and treatment. Patient was given strict follow-up, discharge, and return precautions. All questions were answered. Patient was deemed suitable for outpatient follow-up at this time. Patient agreed with the plan of care and was safely discharged home. Medication Reconcilliation Current Medication List: was personally reviewed by me Blood Pressure Screening Patient's blood pressure: Elevated blood pressure Blood pressure disposition: Elevated BP felt to be situational Consults Time Called: 1045 Consulting Physician: Dr. Dirk [place] Returned Call: 1050 He informed me that she has a history of confabulation where she will not move her extremities. This was seen in the past. She has also been known to self inject her insulin. Impression Primary Impression: Hypoglycemia Additional Impressions: Hypokalemia Anemia Scribe Attestation The scribe's documentation has been prepared under my direction and personally reviewed by me in its entirety. I confirm that the note above accurately reflects all work, treatment, procedures, and medical decision making performed by me. Departure Information Dispostion Home / Self-Care Referrals No Doctor, Assigned (PCP) Forms HOME CARE DOCUMENTATION FORM, IMPORTANT VISIT INFORMATION Patient Instructions ED Diabetes Hypoglycemia Insulin React, Hypoglycemia, My [facility] Additional Instructions Please return to the emergency department if you have worsening or recurrent symptoms not amenable to at-home treatment. Please call for a follow-up appointment with her primary care physician. Please take your medications as prescribed. If you have other concerns and/or complaints please feel free to also call your primary care physician's office or return the ED for further evaluation, management, and treatment. Take your medications as prescribed. You have been examined and treated today on an emergency basis only. This is not a substitute for, or an effort to provide, complete comprehensive medical care. It is impossible to recognize and treat all injuries or illnesses in a single emergency department visit. It is therefore important that you follow up closely with [facility], your PCP, and/or your specialist(s). Call as soon as possible for an appointment. Thank you for your time and consideration. I look forward to speaking with you again soon. Please don't hesitate to call us if you have any questions. Problem Qualifiers Additional Impressions: Anemia Anemia type: unspecified type Qualified Codes: D64.9 - Anemia, unspecified
[2017-04-08 08:02] VITALS: O2SAT 96
[2017-04-08 08:09] LABS: BASO % 0.5 %; BASO ABS # 0.02 K/uL (0-0.2); EOS % 2.7 %; HEMOGLOBIN 10.6 g/dL (12.0-16.0); LYMPH % 36.6 %; LYMPH ABS # 1.38 K/uL (1.2-3.4); MEAN CELL VOLUME 104.2 fL (80-100); MEAN CORPUSCULAR HEMOGLOBIN 36.8 pg (25-34); MEAN CORPUSCULAR HGB CONC 35.3 g/dl (32-36); MEAN PLATELET VOLUME 10.2 fL (7.4-10.4); MONO % 9.3 %; MONO ABS # 0.35 K/uL (0.11-0.59); NEUT % 50.9 %; NEUT ABS # 1.92 K/uL (1.4-6.5); PLATELET COUNT 112 K/uL (130-400); RED CELL DISTRIBUTION WIDTH CV 14.3 % (11.5-14.5); RED CELL DISTRIBUTION WIDTH SD 54.2 fL (36.4-46.3); WHITE BLOOD COUNT 3.77 K/uL (4.8-10.8)
[2017-04-08] MEDS ORDERED: DEXTROSE 50% 50 ML SYR IV ONE (08:15)
[2017-04-08 08:19] LABS: INR 1.1 (0.9-1.1); PTT PATIENT 40.6 SECONDS (21.0-31.0)
--- NOTE | 2017-04-08 08:44 | DIAGNOSTIC IMAGING REPORT ---
CHEST ONE VIEW PORTABLE HISTORY: EVALUATE WEAKNESS COMPARISON: Chest 04/06/2017. FINDINGS: No pneumothorax. No pleural effusions. Right jugular Port-A-Cath terminates in the distal SVC. The heart remains enlarged. Left perihilar hazy airspace opacity has resolved. There is mild central pulmonary vascular congestion without overt edema. Low lung volumes. Electronic stimulator device is seen within the left chest with the leads extending to the lower cervical region. Stable right deviation of the trachea. Postoperative changes within the proximal left humerus IMPRESSION: 1. Stable cardiomegaly. 2. Mild central pulmonary vascular congestion without overt edema. Electronically signed by: Talon Cruz M.D. 04/08/2017 8:43 AM Dictated Date/Time: 04/08/2017 8:41 AM
[2017-04-08 08:48] LABS: ALBUMIN 2.8 gm/dl (3.4-5.0); ALKALINE PHOSPHATASE 205 U/L (45-117); ALT/SGPT 36 U/L (12-78); AST/SGOT 42 U/L (15-37); BLOOD UREA NITROGEN 20 mg/dl (7-18); CALCIUM 7.9 mg/dl (8.5-10.1); CARBON DIOXIDE 26 mmol/L (21-32); CREATININE 0.55 mg/dl (0.60-1.20); GLUCOSE 36 mg/dl (70-99); LIPASE 166 U/L (73-393); SODIUM 145 mmol/L (136-145); TOTAL PROTEIN 6.1 gm/dl (6.4-8.2)
[2017-04-08] MEDS ORDERED: CALCIUM GLUCONATE 10% 10 ML VIAL IV STA (08:49)
--- NOTE | 2017-04-08 08:49 | DIAGNOSTIC IMAGING REPORT ---
HEAD CT NONCONTRAST CT DOSE: 537.48 mGy.cm HISTORY: EVALUATE WEAKNESS TECHNIQUE: Multiaxial CT images of the head were performed without the use of intravenous contrast. Automated exposure control was utilized for this study. A dose lowering technique was utilized adhering to the principles of ALARA. Comparison: Head CT 02/26/2017. Findings: Paranasal sinuses are clear. Opacified bilateral mastoid air cells and a small amount of fluid within the right middle ear cavity. This is new from the prior studies. The calvarium and skull base are intact. The ventricles and sulci are within normal limits. There is no mass, hematoma, midline shift, or acute infarct. Impression: No acute intracranial abnormality. Interval development of bilateral mastoid effusions. Electronically signed by: Talon Cruz M.D. 04/08/2017 8:48 AM Dictated Date/Time: 04/08/2017 8:45 AM
[2017-04-08] MEDS ORDERED: POTASSIUM CHLORIDE 20 MEQ TABCR PO STA (10:12)
[2017-04-08 10:40] VITALS: O2SAT 98; Ht 165.1 cm; Wt 96.3 kg
[2017-04-08] MEDS ORDERED: CALCIUM GLUCONATE 10% 10 ML VIAL IV ONE (11:18)
[2017-04-08 12:54] VITALS: BP 123/62; PULSE 77; O2SAT 98
== END 2017-04-08 12:56 | disposition home or self-care (01) ==
LOC: EDBD 07:08 → C.EDA 07:10
DX: E16.2 Hypoglycemia, unspecified (principal); E87.6 Hypokalemia; D64.9 Anemia, unspecified; E11.9 Type 2 diabetes mellitus without complications; K31.84 Gastroparesis; E03.9 Hypothyroidism, unspecified; F32.9 Major depressive disorder, single episode, unspecified; F31.9 Bipolar disorder, unspecified; J45.909 Unspecified asthma, uncomplicated; K72.90 Hepatic failure, unspecified without coma; K74.60 Unspecified cirrhosis of liver; G40.909 Epilepsy, unspecified, not intractable, without status epilepticus; Z90.710 Acquired absence of both cervix and uterus; Z98.890 Other specified postprocedural states; Z79.4 Long term (current) use of insulin; Z79.899 Other long term (current) drug therapy; Z88.0 Allergy status to penicillin; Z88.1 Allergy status to other antibiotic agents; Z88.3 Allergy status to other anti-infective agents; Z88.8 Allergy status to other drugs, medicaments and biological substances; Z91.018 Allergy to other foods; Z91.09 Other allergy status, other than to drugs and biological substances

== ENCOUNTER → 2017-04-08 | Outpatient (CLI) | payer BC, OTHER ==
[~2017-04-08] MED LIST changes: +CEFD300C2 PO; -DEXT30LI PO; +DEXT30LI4 PO
[2017-04-08 17:40] LABS: ALBUMIN 2.7 gm/dl (3.4-5.0); ALKALINE PHOSPHATASE 221 U/L (45-117); ALT/SGPT 40 U/L (12-78); AST/SGOT 46 U/L (15-37); BLOOD UREA NITROGEN 16 mg/dl (7-18); CARBON DIOXIDE 25 mmol/L (21-32); CREATININE 0.51 mg/dl (0.60-1.20); GLUCOSE 210 mg/dl (70-99); POTASSIUM 3.8 mmol/L (3.5-5.1); SODIUM 140 mmol/L (136-145); TOTAL PROTEIN 5.9 gm/dl (6.4-8.2)
== END | disposition home or self-care (01) ==
LOC: C.LAB 13:03
PROVIDERS: ATTEND Internal Medicine Hematology & Oncology
DX: D61.818 Other pancytopenia (principal)

== ENCOUNTER 2017-04-11 23:11 | Emergency (ER) | payer BC, OTHER ==
[2017-04-11 23:31] VITALS: TEMP 36.9; O2SAT 98
[2017-04-12] MEDS ORDERED: SODIUM CHLORIDE 0.9% 1000ML 1,000 ML IV STA
[2017-04-12 00:20] LABS: INR 1.2 (0.9-1.1)
[2017-04-12 00:29] LABS: ALBUMIN 2.5 gm/dl (3.4-5.0); ALT/SGPT 40 U/L (12-78); AST/SGOT 47 U/L (15-37); BLOOD UREA NITROGEN 20 mg/dl (7-18); CALCIUM 7.5 mg/dl (8.5-10.1); CARBON DIOXIDE 26 mmol/L (21-32); CREATININE 0.59 mg/dl (0.60-1.20); GLUCOSE 188 mg/dl (70-99); LIPASE 240 U/L (73-393); POTASSIUM 3.3 mmol/L (3.5-5.1); SODIUM 146 mmol/L (136-145)
[2017-04-12 00:33] LABS: HEMATOCRIT 28.1 % (37-47); HEMOGLOBIN 9.5 g/dL (12.0-16.0); MEAN CELL VOLUME 104.9 fL (80-100); MEAN CORPUSCULAR HEMOGLOBIN 35.4 pg (25-34); MEAN CORPUSCULAR HGB CONC 33.8 g/dl (32-36); RED CELL DISTRIBUTION WIDTH SD 52.7 fL (36.4-46.3); WHITE BLOOD COUNT 2.94 K/uL (4.8-10.8)
[2017-04-12 00:34] LABS: ALKALINE PHOSPHATASE 258 U/L (45-117); PHOSPHORUS 2.6 mg/dl (2.5-4.9); TOTAL PROTEIN 5.5 gm/dl (6.4-8.2)
[2017-04-12] MEDS ORDERED: OXYC1TAB3 PO (00:34)
[2017-04-12 01:01] LABS: BASO % 0.7 %; BASO ABS # 0.02 K/uL (0-0.2); EOS % 4.1 %; EOS ABS # 0.12 K/uL (0-0.5); LYMPH % 36.7 %; LYMPH ABS # 1.08 K/uL (1.2-3.4); MEAN PLATELET VOLUME 10.6 fL (7.4-10.4); MONO % 9.9 %; MONO ABS # 0.29 K/uL (0.11-0.59); NEUT % 48.6 %; NEUT ABS # 1.43 K/uL (1.4-6.5); PLATELET COUNT 97 K/uL (130-400)
[2017-04-12] MEDS ORDERED: LACTULOSE SYRUP 20 GM/30 ML UDC PO STA (01:18)
--- NOTE | 2017-04-12 04:50 | EMERGENCY ROOM VISIT NOTE ---
History Report prepared by Broderick: Shakira Freeman Under the Supervision of: Dr. Trini Cutler D.O. First contact with patient: 23:39 Chief Complaint: LETHARGIC Stated Complaint: LETHARGY Nursing Triage Summary: Patient states, "My ammonia level is high." Patient refusing to speak about s/s. History of Present Illness The patient is a 51 year old female who presents to the Emergency Room with complaints of persistent lethargy starting today. The patient also complains of some mid abdominal pain and has vomited 6 times today after dinner. She has a history of gastroparesis for which she follows with GI. She states this pain vomiting is consistent with her gastroparesis. She is not on any medications for gastroparesis. She denies any diarrhea or fever. She has a history of diabetes and is on insulin. Her sugars have been high today. States she did take her insulin today per her usual instructions, it is administered by her . Patient was recently here and evaluated for hypoglycemia. She is currently on antibiotics for a UTI which she states she has been compliant in taking. She has been keeping up with her fluids. Patient denies any recent falls or trauma. Patient well known to the emergency department here frequently with multiple complaints. Patient here recently with complaints of weakness and again with hypoglycemia. I did review the urine culture and patient is on an appropriate antibiotic that would cover for the organism isolated. Patient with no active vomiting on arrival here and blood sugar not low. Patient does have a history of noncompliance as well as malingering behavior. Patient frequently presents requesting admission. Patient's helps to care for her and patient has previously had home health aides come help her also. Source of History: patient Onset: today Position: other (global) Quality: other (lethargy) Timing: other (persistent) Associated Symptoms: + vomiting, + abdominal pain, No fevers, No diarrhea Note: Pt reports high blood sugar. Review of Systems See HPI for pertinent positives & negatives. A total of 10 systems reviewed and were otherwise negative. Past Medical & Surgical Medical Problems: (1) Asthma (2) Bipol I, Rec Epis (Or Current) Depressed, Unspecified (3) Borderline personality disorder (4) Cirrhosis (5) Closed right hip fracture (6) Depression (7) Diab Ashley Wo Comp Type Ii Or Nos/Not Uncontrolled (8) Diabetes (9) Diabetic gastroparesis (10) Encephalopathy (11) Heart murmur (12) History of hepatic encephalopathy (13) Hypernatremia (14) Hyponatremia (15) Hypothyroidism (16) Major depressive disorder with psychotic features (17) Migraines (18) Myelodysplastic syndrome (19) Pancytopenia (20) Past Psych Medications (21) Peptic ulcer disease (22) Pneumonia (23) Portal Hypertension (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 (25) Seizure disorder (26) Suicidal ideation Surgical Problems: (1) H/O nasal septoplasty (2) History of appendectomy (3) History of cholecystectomy (4) History of hysterectomy (5) History of kyphoplasty (6) History of tonsillectomy (7) s/p spinal stimulator placement Family History Depression Hypertension Social History Smoking Status: Never Smoker Alcohol Use: none Drug Use: none Marital Status: Housing Status: lives with significant other Occupation Status: disabled Current/Historical Medications Scheduled Ascorbic Acid (Vitamin C), 1,000 MG PO DAILY Bumetanide (Bumex), 1 MG PO QAM Cefdinir (Omnicef), 300 MG PO Q12H Cholecalciferol (Vitamin D), 5,000 UNITS PO DAILY Cranberry (Vaccinium Macrocarp (Cranberry Extract), 1 CAP PO BID Insulin Glargine (Lantus Solostar), 40 SC AMPM Insulin Lispro (Human) (Humalog Kwikpen), UNITS SC UD Lactulose (Chronulac), 30 ML PO BID Lecithin (Lecithin 3500), 1 CAP PO DAILY Levetiracetam (Levetiracetam), 2,000 MG PO BID Levothyroxine Sodium (Levothyroxine Sodium), 75 MCG PO QAM Lutein-Zeaxanthin (Lutein), 1 CAP PO DAILY Magnesium Oxide (Mg Supplement (Magnesium), 500 MG PO BID Mirtazapine (Mirtazapine), 1 TAB PO HS Multivitamin (Multivitamin), 1 TAB PO DAILY Omeprazole (Prilosec), 20 MG PO QAM Oxcarbazepine (Trileptal), 300 MG PO AMHS Potassium Gluconate (Hm Potassium), 1 TAB PO BID Probiotic Product (Probiotic), 1 CAP PO DAILY Promethazine (Phenergan ), 1-2 TABS PO Q6 Rifaximin (Xifaxan), 550 MG PO BID Sertraline HCl (Sertraline HCl), 25 MG PO DAILY Topiramate (Topamax), 50 MG PO BID Topiramate (Topamax ), 25 MG PO BID Vitamin A (Vitamin A), 1 CAP PO QAM Zinc Gluconate (Zinc), 50 MG PO BID Scheduled PRN Albuterol Hfa (Ventolin Hfa), 2-4 PUFFS INH Q6H PRN for Shortness of Breath Benzonatate (Benzonatate), 1 CAP PO TID PRN for Cough Dextromethorphan Polistirex (Delsym), 10 ML PO Q8 PRN for Cough Epinephrine (Epipen), 0.3 MG IM UD PRN for ALLERGIC REACTION Oxycodone Ir (Roxicodone Ir), 5 MG PO Q8 PRN for Pain Rizatriptan Benzoate (Maxalt), 10 MG PO DIRECTED PRN for Migraine Allergies Coded Allergies: Amoxicillin (Verified Allergy, Intermediate, HIVES; Has tolerated cephalosporins (Rocephin, Ceftin,Keflex, 04/12/17) Azithromycin (Verified Allergy, Intermediate, HIVES, 04/12/17) Baclofen (Verified Allergy, Intermediate, RASH, 04/12/17) Butalbital (Verified Allergy, Intermediate, HIVES, 04/12/17) Clarithromycin (Verified Allergy, Intermediate, RASH, 04/12/17) Dicyclomine (Verified Allergy, Intermediate, HIVES, 04/12/17) HIVES Penicillins (Verified Allergy, Intermediate, RASH; has tolerated cephs ( Rocephin, Keflex, Ceftin), 04/12/17) PT STATES SHE GETS WELTS FROM CIPRO,LEVAQUIN ALLERGY PER DR ROBLES Tetracyclines (Verified Allergy, Intermediate, DOXYCYCLINE-HIVES, 04/12/17) Sulindac (Verified Allergy, Mild, ALLERGY LISTED "CLONDORAL"--HIVES, ) Adhesives (Verified Allergy, Unknown, RASH, DUODERM=RED,ITCHY, 04/12/17) PLASTIC TAPE IS OK!!! DUODERM=RED,ITCHY Clavulanic Acid (Unverified Allergy, Unknown, diahrea , 04/12/17) Metronidazole (Verified Allergy, Unknown, SEIZURE, 04/12/17) Tramadol (Verified Allergy, Unknown, SEIZURES, 04/12/17) Metoclopramide (Verified Adverse Reaction, Severe, SEIZURES, 04/12/17) Blueberry (Verified Adverse Reaction, Mild, STOMACH PAIN, 04/12/17) Furosemide (Verified Adverse Reaction, Unknown, HIVES, 04/12/17) Physical Exam Vital Signs Date Time Temp Pulse Resp B/P (MAP) Pulse Ox O2 Delivery O2 Flow Rate FiO2 04/12/17 07:28 75 20 118/69 98 04/12/17 07:03 76 04/12/17 06:06 78 18 04/12/17 06:00 112/64 04/12/17 05:36 74 16 97 Room Air 04/12/17 05:30 122/72 04/12/17 05:06 76 18 97 Room Air 04/12/17 05:01 122/76 04/12/17 05:00 83 18 96 Room Air 04/12/17 04:30 74 20 126/70 98 Room Air 04/12/17 04:00 77 22 120/76 97 Room Air 04/12/17 03:54 82 04/12/17 03:30 80 22 124/77 98 Room Air 04/12/17 03:00 76 25 126/67 95 Room Air 04/12/17 02:28 70 16 111/60 98 Room Air 04/12/17 00:57 67 16 134/65 98 Room Air 04/11/17 23:31 98 Room Air 04/11/17 23:31 36.9 75 16 140/59 98 Room Air 04/11/17 23:26 76 Physical Exam GENERAL: alert, well appearing, well nourished, no distress, non-toxic EYE EXAM: normal conjunctiva, PERRL and EOM's grossly intact OROPHARYNX: no exudate, no erythema, lips, buccal mucosa, and tongue normal and mucous membranes are moist NECK: supple, no nuchal rigidity, no adenopathy, non-tender LUNGS: Clear to auscultation. Normal chest wall mechanics HEART: no murmurs, S1 normal and S2 normal ABDOMEN: abdomen soft, non-tender, normo-active bowel sounds, no masses, no rebound or guarding. BACK: Back is symmetrical on inspection and there is no deformity, no midline tenderness, no CVA tenderness. SKIN: no rashes and no bruising UPPER EXTREMITIES: upper extremities are grossly normal. LOWER EXTREMITIES: No pitting edema. NEURO EXAM: Normal sensorium, cranial nerves II-XII grossly intact, normal speech, no gross weakness of arms, no gross weakness of legs. PSYCH: Flat affect. Medical Decision & Procedures ER Provider Diagnostic Interpretation: X-ray: I interpreted the following studies. Chest: Port noted. No cardiomegaly, effusion, wide mediastinum, focal infiltrate , pulmonary edema. Abdomen: Scattered air and stool. No definite SBO. No free air. Laboratory Results 04/11/17 23:28 Red Blood Count 2.68, Mean Corpuscular Volume 104.9, Mean Corpuscular Hemoglobin 35.4, Mean Corpuscular Hemoglobin Concent 33.8, Mean Platelet Volume 10.6, Neutrophils (%) (Auto) 48.6, Lymphocytes (%) (Auto) 36.7, Monocytes (%) ( Auto) 9.9, Eosinophils (%) (Auto) 4.1, Basophils (%) (Auto) 0.7, Neutrophils # ( Auto) 1.43, Lymphocytes # (Auto) 1.08, Monocytes # (Auto) 0.29, Eosinophils # ( Auto) 0.12, Basophils # (Auto) 0.02 04/11/17 23:28 Test 04/11/17 23:28 04/12/17 00:14 04/12/17 04:24 White Blood Count 2.94 K/uL (4.8-10.8) Red Blood Count 2.68 M/uL (4.2-5.4) Hemoglobin 9.5 g/dL (12.0-16.0) Hematocrit 28.1 % (37-47) Mean Corpuscular Volume 104.9 fL (80-100) Mean Corpuscular Hemoglobin 35.4 pg (25-34) Mean Corpuscular Hemoglobin Concent 33.8 g/dl (32-36) Platelet Count 97 K/uL (130-400) Mean Platelet Volume 10.6 fL (7.4-10.4) Neutrophils (%) (Auto) 48.6 % Lymphocytes (%) (Auto) 36.7 % Monocytes (%) (Auto) 9.9 % Eosinophils (%) (Auto) 4.1 % Basophils (%) (Auto) 0.7 % Neutrophils # (Auto) 1.43 K/uL (1.4-6.5) Lymphocytes # (Auto) 1.08 K/uL (1.2-3.4) Monocytes # (Auto) 0.29 K/uL (0.11-0.59) Eosinophils # (Auto) 0.12 K/uL (0-0.5) Basophils # (Auto) 0.02 K/uL (0-0.2) RDW Standard Deviation 52.7 fL (36.4-46.3) RDW Coefficient of Variation 14.0 % (11.5-14.5) Immature Granulocyte % (Auto) 0.0 % Immature Granulocyte # (Auto) 0.00 K/uL (0.00-0.02) Platelet Estimate DECREASED Prothrombin Time 12.2 SECONDS (9.0-12.0) Prothromb Time International Ratio 1.2 (0.9-1.1) Anion Gap 5.0 mmol/L (3-11) Estimated GFR () 123.0 Estimated GFR (Non- 106.1 BUN/Creatinine Ratio 34.3 (10-20) Lactic Acid Level 1.1 mmol/L (0.4-2.0) Calcium Level 7.5 mg/dl (8.5-10.1) Phosphorus Level 2.6 mg/dl (2.5-4.9) Magnesium Level 1.8 mg/dl (1.8-2.4) Total Bilirubin 0.7 mg/dl (0.2-1) Aspartate Amino Transf (AST/SGOT) 47 U/L (15-37) Alanine Aminotransferase (ALT/SGPT) 40 U/L (12-78) Alkaline Phosphatase 258 U/L (45-117) Troponin I < 0.015 ng/ml (0-0.045) Total Protein 5.5 gm/dl (6.4-8.2) Albumin 2.5 gm/dl (3.4-5.0) Globulin 3.0 gm/dl (2.5-4.0) Albumin/Globulin Ratio 0.8 (0.9-2) Lipase 240 U/L (73-393) Ammonia 122.0 umol/L (11-32) Bedside Glucose 163 mg/dl (70-90) Laboratory results per my review. Medications Administered Medications (Trade) Dose Ordered Sig/Danita Route Start Time Stop Time Status Last Admin Dose Admin Sodium Chloride 1,000 ml @ 125 mls/hr Q8H STAT IV 04/12/17 00:00 04/12/17 07:59 DC 04/12/17 00:06 125 MLS/HR Lactulose (Chronulac Syrup) 30 gm NOW STAT PO 04/12/17 01:18 04/12/17 01:19 DC 04/12/17 01:27 30 GM Heparin Sodium (Porcine) (Heparin 100 Unit/ml 5ml Flush) 5 ml STK-MED ONCE .ROUTE 04/12/17 07:14 04/12/17 07:15 DC 04/12/17 07:27 5 ML ECG Indication: other (lethargy) Rate (beats per minute): 77 Rhythm: sinus rhythm Findings: no acute ischemic change, prolonged QT, no ectopy, other (normal axis , normal AK and QRS) Comparison ECG Date: 08-Apr-2017 Change: Prolonged QT is old. ED Course 2355: The patient was evaluated in room B7. A complete history and physical exam was performed. 0000: NSS 1000 ml @ 125 mls/hr IV. 0118: Lactulose 30 gm PO. 0208: I reevaluated the patient. I updated her on the results. Patient with no current abdominal pain and no vomiting here. Patient continues to state she has not missed any doses of her lactulose or rifixamin. Vital signs stable throughout. 0408: I reevaluated the patient. I discussed the findings and the treatment plan with the patient. She verbalizes agreement and understanding. 0635: Patient continues to be stable, able to ambulate with assistance to the bathroom, no recurrent vomiting. Patient with long-standing history of elevated ammonia levels. He is appear to fluctuate given her varying compliance with taking her medication. Patient not encephalopathic, oriented and answering all questions appropriately. Patient given an extra dose of lactulose here. I feel patient can be safely discharged and follow closely as an outpatient and have a recheck of her ammonia level performed as an outpatient area did discussed with patient follow-up with her family doctor regarding her recurrent episodes of gastroparesis and additional treatment to prevent her symptoms. Discussed symptoms to watch and return for, she verbalized understanding was agreeable with plan. Medical Decision Differential diagnosis: Etiologies such as appendicitis, diverticulitis, PUD, biliary pathology, UTI, pancreatitis, obstruction, mesenteric ischemia, aortic pathology, infections, inflammatory bowel disease, renal colic, as well as others were entertained. I do not suspect CVA, occult infection, acute renal failure electrolyte abnormality, bacteremia/sepsis. Patient with chronically elevated ammonia levels which fluctuate with patient's level of compliance. Despite the elevated level today compared to the last visit, patient was not encephalopathic. Patient with chronic pancytopenia which appears to be baseline. I feel patient has a component of malingering behavior. Patient observed overnight for many hours as a precaution to assure that she had no recurrent or worsening symptoms, the evolution of any other symptoms to suggest additional alternative pathology. Patient appeared in her usual state of health at time of discharge, still answering all questions appropriately, and had tolerated her lactulose here without vomiting or abdominal pain. Medication Reconcilliation Current Medication List: was personally reviewed by me Blood Pressure Screening Patient's blood pressure: Normal blood pressure Blood pressure disposition: Did not require urgent referral Impression Primary Impression: Hypoglycemia Additional Impressions: Weakness generalized Hyperammonemia Pancytopenia Scribe Attestation The scribe's documentation has been prepared under my direction and personally reviewed by me in its entirety. I confirm that the note above accurately reflects all work, treatment, procedures, and medical decision making performed by me. Departure Information Dispostion Home / Self-Care Referrals Olena Little DO (PCP) Patient Instructions My [facility] Additional Instructions Please take your medications as prescribed. Please increase your lactulose to 3 times a day. Please check your sugar 4-5 times a day and only use the insulin as prescribed by your doctor. Please adhere to a diabetic diet. Please have your family doctor recheck your ammonia level next week to assure that it is improving again. Please finish your course of antibiotics. Please make sure you're drinking plenty of water. If you have any new or concerning symptoms, please return the emergency room. Problem Qualifiers
--- NOTE | 2017-04-12 05:52 | DIAGNOSTIC IMAGING REPORT ---
ABDOMEN 2VIEW W/PA CHEST RTN CLINICAL HISTORY: epigastric pain pain COMPARISON STUDY: 04/08/2014 FINDINGS: Lungs are clear. Central catheter ends. Cava. Diaphragms smooth. IMPRESSION: No acute process The above report was generated using voice recognition software. It may contain grammatical, syntax or spelling errors. Electronically signed by: Kenroy Yates M.D. 04/12/2017 5:51 AM Dictated Date/Time: 04/12/2017 5:50 AM
[2017-04-12 07:28] VITALS: BP 118/69; PULSE 75; O2SAT 98
[2017-04-12] MEDS ORDERED: POTA1TAB PO (11:25)
[2017-04-12] MEDS ORDERED: VITA80005 PO (11:26)
== END 2017-04-12 07:30 | disposition home or self-care (01) ==
LOC: EDBD 23:11 → C.EDB 23:12
DX: E11.649 Type 2 diabetes mellitus with hypoglycemia without coma (principal); R53.1 Weakness; E72.20 Disorder of urea cycle metabolism, unspecified; D61.818 Other pancytopenia; J45.909 Unspecified asthma, uncomplicated; F31.9 Bipolar disorder, unspecified; E11.43 Type 2 diabetes mellitus with diabetic autonomic (poly)neuropathy; E03.9 Hypothyroidism, unspecified; G43.909 Migraine, unspecified, not intractable, without status migrainosus; E87.0 Hyperosmolality and hypernatremia; K27.9 Peptic ulcer, site unspecified, unspecified as acute or chronic, without hemorrhage or perforation; K74.60 Unspecified cirrhosis of liver; Z87.01 Personal history of pneumonia (recurrent); G40.909 Epilepsy, unspecified, not intractable, without status epilepticus; R01.1 Cardiac murmur, unspecified; F32.9 Major depressive disorder, single episode, unspecified; F60.3 Borderline personality disorder; Z82.49 Family history of ischemic heart disease and other diseases of the circulatory system; Z79.4 Long term (current) use of insulin; Z79.899 Other long term (current) drug therapy

== ENCOUNTER 2017-04-12 10:28 | Inpatient (IN) | payer BC, OTHER ==
[~2017-04-12] VITALS: Ht 165.1 cm; Wt 94.0 kg
[~2017-04-12 10:28] MED LIST changes: +OXYC1TAB3 PO
[2017-04-12] MEDS ORDERED: MoRPHine SULFATE 4 MG/ML 1 ML CARP\\VIAL IM STA (11:02)
--- NOTE | 2017-04-12 11:17 | EMERGENCY ROOM VISIT NOTE ---
History Report prepared by Broderick: Cristy Gage Under the Supervision of: Dr. Alexis Jones M.D. First contact with patient: 10:44 Chief Complaint: FALL Stated Complaint: FALL History of Present Illness The patient is a 51 year old white female with a past medical history of asthma , depression, and diabetes who presents to the ED with a cc of an episode of a fall beginning 1 hour ago. Pt states that she was at home when she tripped putting her pajamas on. She reports that she fell back and hit the back of her head. Positive right hip pain, right campbell pain, and head injury. Negative LOC. She does not take any blood thinners. Source of History: patient Onset: 1 hour ago Position: other (global) Quality: other (fall) Timing: other (episode ) Associated Symptoms: No LOC Note: The patient complains of right hip pain and right campbell pain. Review of Systems See HPI for pertinent positives and negatives. A total of ten systems were reviewed and were otherwise negative. Past Medical & Surgical Medical Problems: (1) Asthma (2) Bipol I, Rec Epis (Or Current) Depressed, Unspecified (3) Borderline personality disorder (4) Cirrhosis (5) Closed right hip fracture (6) Depression (7) Diab Ashley Wo Comp Type Ii Or Nos/Not Uncontrolled (8) Diabetes (9) Diabetic gastroparesis (10) Encephalopathy (11) Heart murmur (12) History of hepatic encephalopathy (13) Hypernatremia (14) Hyponatremia (15) Hypothyroidism (16) Major depressive disorder with psychotic features (17) Migraines (18) Myelodysplastic syndrome (19) Pancytopenia (20) Past Psych Medications (21) Peptic ulcer disease (22) Pneumonia (23) Portal Hypertension (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 (25) Seizure disorder (26) Suicidal ideation Surgical Problems: (1) H/O nasal septoplasty (2) History of appendectomy (3) History of cholecystectomy (4) History of hysterectomy (5) History of kyphoplasty (6) History of tonsillectomy (7) s/p spinal stimulator placement Family History Depression Hypertension Social History Smoking Status: Never Smoker Alcohol Use: none Drug Use: none Marital Status: Housing Status: lives with significant other Occupation Status: disabled Current/Historical Medications Scheduled Ascorbic Acid (Vitamin C), 1,000 MG PO DAILY Bumetanide (Bumex), 1 MG PO QAM Cefdinir (Omnicef), 300 MG PO Q12H Cholecalciferol (Vitamin D), 5,000 UNITS PO DAILY Cranberry (Vaccinium Macrocarp (Cranberry Extract), 1 CAP PO BID Insulin Glargine (Lantus Solostar), 40 SC AMPM Insulin Lispro (Human) (Humalog Kwikpen), UNITS SC UD Lactulose (Chronulac), 30 ML PO BID Lecithin (Lecithin 3500), 1 CAP PO DAILY Levetiracetam (Levetiracetam), 2,000 MG PO BID Levothyroxine Sodium (Levothyroxine Sodium), 75 MCG PO QAM Lutein-Zeaxanthin (Lutein), 1 CAP PO DAILY Magnesium Oxide (Mg Supplement (Magnesium), 500 MG PO BID Mirtazapine (Mirtazapine), 1 TAB PO HS Multivitamin (Multivitamin), 1 TAB PO DAILY Omeprazole (Prilosec), 20 MG PO QAM Oxcarbazepine (Trileptal), 300 MG PO AMHS Potassium Gluconate (Hm Potassium), 1 TAB PO BID Probiotic Product (Probiotic), 1 CAP PO DAILY Promethazine (Phenergan ), 1-2 TABS PO Q6 Rifaximin (Xifaxan), 550 MG PO BID Sertraline HCl (Sertraline HCl), 25 MG PO DAILY Topiramate (Topamax), 50 MG PO BID Topiramate (Topamax ), 25 MG PO BID Vitamin A (Vitamin A), 1 CAP PO QAM Zinc Gluconate (Zinc), 50 MG PO BID Scheduled PRN Albuterol Hfa (Ventolin Hfa), 2-4 PUFFS INH Q6H PRN for Shortness of Breath Benzonatate (Benzonatate), 1 CAP PO TID PRN for Cough Dextromethorphan Polistirex (Delsym), 10 ML PO Q8 PRN for Cough Epinephrine (Epipen), 0.3 MG IM UD PRN for ALLERGIC REACTION Oxycodone Ir (Roxicodone Ir), 5 MG PO Q8 PRN for Pain Rizatriptan Benzoate (Maxalt), 10 MG PO DIRECTED PRN for Migraine Allergies Coded Allergies: Amoxicillin (Verified Allergy, Intermediate, HIVES; Has tolerated cephalosporins (Rocephin, Ceftin,Keflex, 04/12/17) Azithromycin (Verified Allergy, Intermediate, HIVES, 04/12/17) Baclofen (Verified Allergy, Intermediate, RASH, 04/12/17) Butalbital (Verified Allergy, Intermediate, HIVES, 04/12/17) Clarithromycin (Verified Allergy, Intermediate, RASH, 04/12/17) Dicyclomine (Verified Allergy, Intermediate, HIVES, 04/12/17) HIVES Penicillins (Verified Allergy, Intermediate, RASH; has tolerated cephs ( Rocephin, Keflex, Ceftin), 04/12/17) PT STATES SHE GETS WELTS FROM CIPRO,LEVAQUIN [facility]ERGY PER DR ROBLES Tetracyclines (Verified Allergy, Intermediate, DOXYCYCLINE-HIVES, 04/12/17) Sulindac (Verified Allergy, Mild, ALLERGY LISTED "CLONDORAL"--HIVES, ) Adhesives (Verified Allergy, Unknown, RASH, DUODERM=RED,ITCHY, 04/12/17) PLASTIC TAPE IS OK!!! DUODERM=RED,ITCHY Clavulanic Acid (Unverified Allergy, Unknown, diahrea , 04/12/17) Metronidazole (Verified Allergy, Unknown, SEIZURE, 04/12/17) Tramadol (Verified Allergy, Unknown, SEIZURES, 04/12/17) Metoclopramide (Verified Adverse Reaction, Severe, SEIZURES, 04/12/17) Blueberry (Verified Adverse Reaction, Mild, STOMACH PAIN, 04/12/17) Furosemide (Verified Adverse Reaction, Unknown, HIVES, 04/12/17) Physical Exam Vital Signs Date Time Temp Pulse Resp B/P (MAP) Pulse Ox O2 Delivery O2 Flow Rate FiO2 04/12/17 15:02 102 20 04/12/17 13:52 Mask 4.0 04/12/17 13:50 92 04/12/17 13:42 94 16 172/106 100 Humidified Oxygen 4.0 Mask 04/12/17 13:11 95 Room Air 04/12/17 12:47 84 20 110/65 97 Room Air 04/12/17 11:53 99 Room Air 04/12/17 10:38 36.7 80 16 164/59 100 Room Air 04/12/17 10:34 79 Physical Exam GENERAL: Awake, alert, well-appearing, mild discomfort HENT: Mild occipital TTP EYES: Normal conjunctiva. Sclera non-icteric. NECK: Supple. No nuchal rigidity. FROM. No midline C-spine TTP. RESPIRATORY: CTAB, no rhonchi, wheezing, crackles CARDIAC: RRR, no MRG ABDOMEN: Soft, NTND, BS+ MSK: No chest wall TTP, no LE edema. RLQ questionably shorter than LLE, pain over right hip and thigh, compartments soft, NVI. NEURO: GCS 15, CN 2-12 intact, moves all 4s on command SKIN: No rash or jaundice noted. Medical Decision & Procedures ER Provider Diagnostic Interpretation: Radiology results as stated below per my review and radiologist interpretation: R PELVIS/UNILATERAL HIP 2-3VIEWS DISCUSSION: Intertrochanteric fracture right hip. Slice appear migration right femoral shaft. No evidence of dislocation. No evidence for acetabular protrusion. There is no evidence for soft tissue swelling. IMPRESSION: Intertrochanteric fracture right hip with slight superior migration right femoral shaft The above report was generated using voice recognition software. It may contain grammatical, syntax or spelling errors. Electronically signed by: Kenroy Yates M.D. 04/12/2017 11:42 AM Dictated Date/Time: 04/12/2017 11:42 AM HEAD WITHOUT CONTRAST (CT) Comparison: None. Findings: Chronic opacification of the mastoid air cells. This is unchanged from the prior exam. The calvarium and skull base are intact. The ventricles and sulci are within normal limits. There is no mass, hematoma, midline shift, or acute infarct. Minimal age-related change Impression: No acute intracranial abnormality. Chronic opacification of the mastoid air cells. The above report was generated using voice recognition software. It may contain grammatical, syntax or spelling errors. Electronically signed by: Kenroy Yates M.D. 04/12/2017 1:55 PM Dictated Date/Time: 04/12/2017 1:54 PM R FEMUR 2 VIEWS ROUTINE DISCUSSION: The distal aspect of the right femur appears intact. The intertrochanteric fracture of the right hip is again noted. Slice appear migration of the femoral shaft is present. Mild degenerative changes of the right knee. There is no evidence for soft tissue swelling. IMPRESSION: No acute process of the mid to distal right femur. The previously described intertrochanteric fracture right hip is again noted. Slight superior migration right femoral shaft. The above report was generated using voice recognition software. It may contain grammatical, syntax or spelling errors. Electronically signed by: Kenroy Yates M.D. 04/12/2017 11:44 AM Dictated Date/Time: 04/12/2017 11:43 AM CERVICAL SPINE W/O FINDINGS: No fractures. No subluxation. Prevertebral soft tissues and the C1-C2 interval are intact. No pneumothorax. Moderate degenerative change from C6 through C7. IMPRESSION: No fractures within the cervical spine. Moderate degenerative change. No acute process. The above report was generated using voice recognition software. It may contain grammatical, syntax or spelling errors. Electronically signed by: Kenroy Yates M.D. 04/12/2017 1:53 PM Dictated Date/Time: 04/12/2017 1:51 PM Laboratory Results 04/12/17 09:40 Red Blood Count 2.70, Mean Corpuscular Volume 105.9, Mean Corpuscular Hemoglobin 37.0, Mean Corpuscular Hemoglobin Concent 35.0, Mean Platelet Volume 10.6, Neutrophils (%) (Auto) 50.8, Lymphocytes (%) (Auto) 31.7, Monocytes (%) ( Auto) 10.6, Eosinophils (%) (Auto) 5.6, Basophils (%) (Auto) 1.0, Neutrophils # (Auto) 1.54, Lymphocytes # (Auto) 0.96, Monocytes # (Auto) 0.32, Eosinophils # ( Auto) 0.17, Basophils # (Auto) 0.03 04/12/17 09:40 Test 04/12/17 09:40 White Blood Count 3.03 K/uL (4.8-10.8) Red Blood Count 2.70 M/uL (4.2-5.4) Hemoglobin 10.0 g/dL (12.0-16.0) Hematocrit 28.6 % (37-47) Mean Corpuscular Volume 105.9 fL (80-100) Mean Corpuscular Hemoglobin 37.0 pg (25-34) Mean Corpuscular Hemoglobin Concent 35.0 g/dl (32-36) Platelet Count 93 K/uL (130-400) Mean Platelet Volume 10.6 fL (7.4-10.4) Neutrophils (%) (Auto) 50.8 % Lymphocytes (%) (Auto) 31.7 % Monocytes (%) (Auto) 10.6 % Eosinophils (%) (Auto) 5.6 % Basophils (%) (Auto) 1.0 % Neutrophils # (Auto) 1.54 K/uL (1.4-6.5) Lymphocytes # (Auto) 0.96 K/uL (1.2-3.4) Monocytes # (Auto) 0.32 K/uL (0.11-0.59) Eosinophils # (Auto) 0.17 K/uL (0-0.5) Basophils # (Auto) 0.03 K/uL (0-0.2) RDW Standard Deviation 54.3 fL (36.4-46.3) RDW Coefficient of Variation 14.3 % (11.5-14.5) Immature Granulocyte % (Auto) 0.3 % Immature Granulocyte # (Auto) 0.01 K/uL (0.00-0.02) Prothrombin Time 12.0 SECONDS (9.0-12.0) Prothromb Time International Ratio 1.1 (0.9-1.1) Activated Partial Thromboplast Time 74.4 SECONDS (21.0-31.0) Partial Thromboplastin Ratio 2.9 Anion Gap 4.0 mmol/L (3-11) Est Creatinine Clear Calc Drug Dose 100.7 ml/min Estimated GFR () 112.4 Estimated GFR (Non- 97.0 BUN/Creatinine Ratio 24.1 (10-20) Calcium Level 7.5 mg/dl (8.5-10.1) Laboratory results reviewed by me Medications Administered Medications (Trade) Dose Ordered Sig/Danita Route Start Time Stop Time Status Last Admin Dose Admin Morphine Sulfate (MoRPHine SULFATE INJ) 4 mg NOW STAT IM 04/12/17 11:02 04/12/17 11:05 DC 04/12/17 11:10 4 MG Hydromorphone HCl (Dilaudid Inj) 0.5 mg STK-MED ONCE .ROUTE 04/12/17 11:48 04/12/17 11:49 DC 04/12/17 11:52 0.5 MG Hydromorphone HCl (Dilaudid Inj) 0.5 mg NOW STAT IV 04/12/17 12:11 1/13/18 12:13 DC 04/12/17 12:46 0.5 MG Hydromorphone HCl (Dilaudid Inj) 0.5 mg Q3H PRN IV 04/12/17 14:30 04/26/17 14:29 04/12/17 16:33 0.5 MG ED Course 1044: The patient was evaluated in room A9. A complete history and physical exam was performed. 1152: I spoke [place] Berger[place] [facility] [place] would like orthopedics to evaluate the patient. 1154: I spoke to Dr. Moore of orthopedics and he will talk to Dr. Bergeron. 1400: Dr. Bergeron will evaluate the patient for further management. 1422: Upon reexamination, the patient was doing well. I discussed the test results and treatment plan with her. The patient will be evaluated for further management. Medical Decision The patient is a 51 year old white female with a past medical history of asthma , depression, and diabetes who presents to the ED with a cc of an episode of a fall beginning 1 hour ago. Differential diagnosis: Etiologies such as fracture, dislocation, neurovascular compromise, compartment syndrome, soft tissue injury, as well as others were entertained. Patient was seen and evaluated the bedside. Patient was recently seen at the hospital for concern for hypoglycemia and was discharged. Patient ago while. And then returned home where she had a subsequent mechanical fall. Patient denies any LOC. Patient did complain of some mild TTP to the occiput. Patient has a nonfocal neurologic exam although her right lower extremity is somewhat limited for the exam secondary to pain. Patient does appear coarsely shortened. Patient is in the eye display was soft compartments. No blood work was obtained at this time given her recent lab draw. Patient did have plain films that were completed which do show a right intertrochanteric fracture. I did talk with the hospitalist who recommended an orthopedic admission. I did speak with the orthopedist who recommended a medical admission. I then we discussed this again with the hospitalist on-call they stated they would speak with the orthopedist to discuss who would admit the patient. Patient did have pending CTs of the head and neck to rule out any acute findings especially since she struck her head. Patient did have blood work completed along with a type and screen. Patient's CTs were negative acute. Admitted to medicine. The chart was completed utilizing [employer] Speech voice recognition software. Grammatical errors, random word insertions, pronoun errors, and incomplete sentences are an occasional consequence of this system due to software limitations, ambient noise, and hardware issues. Any formal questions or concerns about the content, text, or information contained within the body of this dictation should be directly addressed to the physician for clarification. Medication Reconcilliation Current Medication List: was personally reviewed by me Blood Pressure Screening Patient's blood pressure: Elevated blood pressure Blood pressure disposition: Elevated BP felt to be situational Consults Time Called: 1150 Consulting Physician: Dr. Bergeron - [facility] Returned Call: 1152 1152: I spoke to Dr. Bergeron of [facility] and she would like orthopedics to evaluate the patient. Additional Consults: Time Called: 1152 Consulted Physician: Dr. Moore - Orthopedics Returned Call: 1154 Additional Comments: 1154: I spoke to Dr. Moore of orthopedics and he will talk to Dr. Bergeron. Impression Primary Impression: Intertrochanteric fracture of left femur Additional Impression: Fall Scribe Attestation The scribe's documentation has been prepared under my direction and personally reviewed by me in its entirety. I confirm that the note above accurately reflects all work, treatment, procedures, and medical decision making performed by me. Departure Information Dispostion Being Evaluated By Hospitalist Referrals Olena Little DO (PCP) Patient Instructions [facility] Problem Qualifiers Primary Impression: Intertrochanteric fracture of left femur Encounter type: initial encounter Fracture type: closed Fracture alignment : displaced Qualified Codes: S72.142A - Displaced intertrochanteric fracture of left femur, initial encounter for closed fracture Additional Impression: Fall Encounter type: initial encounter Qualified Codes: W19.XXXA - Unspecified fall, initial encounter
[2017-04-12] MEDS ORDERED: POTA1TAB PO (11:25)
[2017-04-12] MEDS ORDERED: VITA80005 PO (11:26)
--- NOTE | 2017-04-12 11:44 | DIAGNOSTIC IMAGING REPORT ---
R PELVIS/UNILATERAL HIP 2-3VIEWS CLINICAL HISTORY: s/p fall, RLE hip/femur pain, NVI distally, ?shortened trauma COMPARISON: None. DISCUSSION: Intertrochanteric fracture right hip. Slice appear migration right femoral shaft. No evidence of dislocation. No evidence for acetabular protrusion. There is no evidence for soft tissue swelling. IMPRESSION: Intertrochanteric fracture right hip with slight superior migration right femoral shaft The above report was generated using voice recognition software. It may contain grammatical, syntax or spelling errors. Electronically signed by: Kenroy Yates M.D. 04/12/2017 11:42 AM Dictated Date/Time: 04/12/2017 11:42 AM
[2017-04-12] MEDS ORDERED: HYDROmorphone INJ 0.5 MG/0.5 ML SYR IV STA ×2 (11:45→12:11)
--- NOTE | 2017-04-12 11:45 | DIAGNOSTIC IMAGING REPORT ---
R FEMUR 2 VIEWS ROUTINE CLINICAL HISTORY: s/p fall, RLE hip/femur pain, NVI distally, ?shortened COMPARISON: None. DISCUSSION: The distal aspect of the right femur appears intact. The intertrochanteric fracture of the right hip is again noted. Slice appear migration of the femoral shaft is present. Mild degenerative changes of the right knee. There is no evidence for soft tissue swelling. IMPRESSION: No acute process of the mid to distal right femur. The previously described intertrochanteric fracture right hip is again noted. Slight superior migration right femoral shaft. The above report was generated using voice recognition software. It may contain grammatical, syntax or spelling errors. Electronically signed by: Kenroy Ytaes M.D. 04/12/2017 11:44 AM Dictated Date/Time: 04/12/2017 11:43 AM
[2017-04-12] MEDS ORDERED: HYDROmorphone INJ 0.5 MG/0.5 ML SYR ONE (11:48)
[2017-04-12 11:56] LABS: HEMATOCRIT 28.6 % (37-47); MEAN CELL VOLUME 105.9 fL (80-100); RED CELL DISTRIBUTION WIDTH CV 14.3 % (11.5-14.5); RED CELL DISTRIBUTION WIDTH SD 54.3 fL (36.4-46.3); WHITE BLOOD COUNT 3.03 K/uL (4.8-10.8)
[2017-04-12 12:16] LABS: INR 1.1 (0.9-1.1)
[2017-04-12 12:19] LABS: BASO ABS # 0.03 K/uL (0-0.2); EOS % 5.6 %; EOS ABS # 0.17 K/uL (0-0.5); IG# 0.01 K/uL (0.00-0.02); LYMPH % 31.7 %; LYMPH ABS # 0.96 K/uL (1.2-3.4); MEAN PLATELET VOLUME 10.6 fL (7.4-10.4); MONO % 10.6 %; MONO ABS # 0.32 K/uL (0.11-0.59); NEUT % 50.8 %; NEUT ABS # 1.54 K/uL (1.4-6.5); PLATELET COUNT 93 K/uL (130-400)
[2017-04-12 12:20] LABS: CALCIUM 7.5 mg/dl (8.5-10.1); CREATININE 0.72 mg/dl (0.60-1.20); POTASSIUM 3.5 mmol/L (3.5-5.1)
[2017-04-12 12:27] LABS: PTT PATIENT 74.4 SECONDS (21.0-31.0)
--- NOTE | 2017-04-12 13:55 | DIAGNOSTIC IMAGING REPORT ---
CERVICAL SPINE W/O CT DOSE: HISTORY: Trauma EVALUATE FOR TRAUMA/INJURY TECHNIQUE: Multiaxial CT images of the cervical spine were performed and reformatted in the sagittal and coronal plane without the use of contrast. A dose lowering technique was utilized adhering to the principles of ALARA. COMPARISON: 09/19/2016 FINDINGS: No fractures. No subluxation. Prevertebral soft tissues and the C1-C2 interval are intact. No pneumothorax. Moderate degenerative change from C6 through C7. IMPRESSION: No fractures within the cervical spine. Moderate degenerative change. No acute process. The above report was generated using voice recognition software. It may contain grammatical, syntax or spelling errors. Electronically signed by: Kenroy Yates M.D. 04/12/2017 1:53 PM Dictated Date/Time: 04/12/2017 1:51 PM
--- NOTE | 2017-04-12 13:57 | DIAGNOSTIC IMAGING REPORT ---
HEAD WITHOUT CONTRAST (CT) CT DOSE: 1168.56 mGy.cm HISTORY: Trauma. Mental status change. EVALUATE FOR TRAUMA/INJURY TECHNIQUE: Multiaxial CT images of the head were performed without the use of intravenous contrast. A dose lowering technique was utilized adhering to the principles of ALARA. Comparison: None. Findings: Chronic opacification of the mastoid air cells. This is unchanged from the prior exam. The calvarium and skull base are intact. The ventricles and sulci are within normal limits. There is no mass, hematoma, midline shift, or acute infarct. Minimal age-related change Impression: No acute intracranial abnormality. Chronic opacification of the mastoid air cells. The above report was generated using voice recognition software. It may contain grammatical, syntax or spelling errors. Electronically signed by: Kenroy Yates M.D. 04/12/2017 1:55 PM Dictated Date/Time: 04/12/2017 1:54 PM
[2017-04-12] MEDS ORDERED: ONDANSETRON INJ 2 MG/ML 2 ML VIAL IV PRN ×2 (14:30→15:00)
[2017-04-12] MEDS ORDERED: ALBUTEROL HFA 8 GM INHALER INH PRN (14:30)
[2017-04-12] MEDS ORDERED: ALUMINUM/MAGNESIUM/SIMETH (MAALOX MAX) 30 ML UDC PO PRN (14:30)
[2017-04-12] MEDS ORDERED: ACETAMINOPHEN 325 MG TAB PO PRN (14:30)
[2017-04-12] MEDS ORDERED: MAGNESIUM HYDROXIDE SUSP 30 ML UDC PO PRN (14:30)
--- NOTE | 2017-04-12 14:56 | History and Physical ---
History & Physical Date & Time of Service: Apr 12, 2017 at 14:35 Chief Complaint: FALL Primary Care Physician: Olena Little DO History of Present Illness Source: patient, family, clinic records, hospital records Patient is a pleasant 51 y/o female, with PMHx liver cirrhosis, T2DM, hypothyroidism, seizure disorder, migraines, asthma, parkinsonism, bipolar disorder, depression, chronic pancytopenia, and GERD, who presented to the ED because of a mechanical fall occurring this AM resulting in R intertrochanteric hip fracture. She was putting on her pajamas when her foot got stuck and landed on her R side. did not witness event. Patient was sen early today in ED and discharged to home due to confusion. Patient notes pain is 14/10 and requesting Dilaudid- she was given 1 mg Dilaudid + IV 4 mg Morphine in ED. Patient does appear lethargic- discussed limiting pain medications due to lethargy. notes she was recently placed on Humalog and states " something isn't right, she gets confused after injection and sugars aren't controlled." Requesting nurse informatics educator consultation. Patient denies any fever , chills, sweats, lightheadedness, dizziness, vision changes, CP, palpitations, edema, SOB, wheezing, cough, abdominal pain, nausea, vomiting, diarrhea, urinary symptoms, melena, numbness/tingling, weakness, anxiety/depression, active bleeding, or new skin discoloration/changes. Past Medical/Surgical History Medical Problems: liver cirrhosis T2DM hypothyroidism seizure disorder migraines asthma parkinsonism bipolar disorder depression chronic pancytopenia GERD Myelodysplastic syndrome Surgical Problems: (1) H/O nasal septoplasty Status: Chronic (2) History of appendectomy Status: Chronic (3) History of cholecystectomy Status: Chronic (4) History of hysterectomy Status: Chronic (5) History of kyphoplasty Permanent Comment: lumbar Status: Chronic (6) History of tonsillectomy Status: Chronic (7) s/p spinal stimulator placement Status: Chronic Family History Depression Hypertension Social History Smoking Status: Never Smoker Drug Use: none Marital Status: Housing status: lives with family Occupational Status: disabled Immunizations History of Influenza Vaccine: Yes Influenza Vaccine Date: Feb 02, 2013 History of Tetanus Vaccine?: utd Tetanus Immunization Date: Jun 11, 2008 History of Pneumococcal: SEE LAST PACKET Pneumococcal Date: Nov 13, 2008 History of Hepatitis B Vaccine: Unknown Hepatitis Immunization Date: Jan 12, 1996 Multi-Drug Resistant Organisms History of MDRO: No Allergies Coded Allergies: Amoxicillin (Verified Allergy, Intermediate, HIVES; Has tolerated cephalosporins (Rocephin, Ceftin,Keflex, 04/12/17) Azithromycin (Verified Allergy, Intermediate, HIVES, 04/12/17) Baclofen (Verified Allergy, Intermediate, RASH, 04/12/17) Butalbital (Verified Allergy, Intermediate, HIVES, 04/12/17) Clarithromycin (Verified Allergy, Intermediate, RASH, 04/12/17) Dicyclomine (Verified Allergy, Intermediate, HIVES, 04/12/17) HIVES Penicillins (Verified Allergy, Intermediate, RASH; has tolerated cephs ( Rocephin, Keflex, Ceftin), 04/12/17) PT STATES SHE GETS WELTS FROM CIPRO,LEVAQUIN ALLERGY PER DR ROBLES Tetracyclines (Verified Allergy, Intermediate, DOXYCYCLINE-HIVES, 04/12/17) Sulindac (Verified Allergy, Mild, ALLERGY LISTED "CLONDORAL"--HIVES, ) Adhesives (Verified Allergy, Unknown, RASH, DUODERM=RED,ITCHY, 04/12/17) PLASTIC TAPE IS OK!!! DUODERM=RED,ITCHY Clavulanic Acid (Unverified Allergy, Unknown, diahrea , 04/12/17) Metronidazole (Verified Allergy, Unknown, SEIZURE, 04/12/17) Tramadol (Verified Allergy, Unknown, SEIZURES, 04/12/17) Metoclopramide (Verified Adverse Reaction, Severe, SEIZURES, 04/12/17) Blueberry (Verified Adverse Reaction, Mild, STOMACH PAIN, 04/12/17) Furosemide (Verified Adverse Reaction, Unknown, HIVES, 04/12/17) Home Medications Scheduled Ascorbic Acid (Vitamin C), 1,000 MG PO DAILY Bumetanide (Bumex), 1 MG PO QAM Cefdinir (Omnicef), 300 MG PO Q12H Cholecalciferol (Vitamin D), 5,000 UNITS PO DAILY Cranberry (Vaccinium Macrocarp (Cranberry Extract), 1 CAP PO BID Insulin Glargine (Lantus Solostar), 40 SC AMPM Insulin Lispro (Human) (Humalog Kwikpen), UNITS SC UD Lactulose (Chronulac), 30 ML PO BID Lecithin (Lecithin 3500), 1 CAP PO DAILY Levetiracetam (Levetiracetam), 2,000 MG PO BID Levothyroxine Sodium (Levothyroxine Sodium), 75 MCG PO QAM Lutein-Zeaxanthin (Lutein), 1 CAP PO DAILY Magnesium Oxide (Mg Supplement (Magnesium), 500 MG PO BID Mirtazapine (Mirtazapine), 1 TAB PO HS Multivitamin (Multivitamin), 1 TAB PO DAILY Omeprazole (Prilosec), 20 MG PO QAM Oxcarbazepine (Trileptal), 300 MG PO AMHS Potassium Gluconate (Hm Potassium), 1 TAB PO BID Probiotic Product (Probiotic), 1 CAP PO DAILY Promethazine (Phenergan ), 1-2 TABS PO Q6 Rifaximin (Xifaxan), 550 MG PO BID Sertraline HCl (Sertraline HCl), 25 MG PO DAILY Topiramate (Topamax), 50 MG PO BID Topiramate (Topamax ), 25 MG PO BID Vitamin A (Vitamin A), 1 CAP PO QAM Zinc Gluconate (Zinc), 50 MG PO BID Scheduled PRN Albuterol Hfa (Ventolin Hfa), 2-4 PUFFS INH Q6H PRN for Shortness of Breath Benzonatate (Benzonatate), 1 CAP PO TID PRN for Cough Dextromethorphan Polistirex (Delsym), 10 ML PO Q8 PRN for Cough Epinephrine (Epipen), 0.3 MG IM UD PRN for ALLERGIC REACTION Oxycodone Ir (Roxicodone Ir), 5 MG PO Q8 PRN for Pain Rizatriptan Benzoate (Maxalt), 10 MG PO DIRECTED PRN for Migraine Physical Exam Vital Signs Date Time Temp Pulse Resp B/P (MAP) Pulse Ox O2 Delivery O2 Flow Rate FiO2 04/12/17 13:52 Mask 4.0 04/12/17 13:50 92 04/12/17 13:42 94 16 172/106 100 Humidified Oxygen 4.0 Mask 04/12/17 13:11 95 Room Air 04/12/17 12:47 84 20 110/65 97 Room Air 04/12/17 11:53 99 Room Air 04/12/17 10:38 36.7 80 16 164/59 100 Room Air 04/12/17 10:34 79 General Appearance: no apparent distress, + obese, + pertinent finding ( OxyMask ) Head: normocephalic, atraumatic Eyes: normal inspection, PERRL ENT: hearing grossly normal Neck: supple Respiratory/Chest: lungs clear, no respiratory distress, no accessory muscle use Cardiovascular: regular rate, rhythm Abdomen/GI: normal bowel sounds, non tender, soft Back: normal inspection Extremities/Musculoskelatal: no calf tenderness, no pedal edema Neurologic/Psych: alert, oriented x 3, + pertinent finding (lethargic ) Skin: normal color, warm/dry, no rash Diagnostics Laboratory Results Results Past 24 Hours Test 04/12/17 09:40 Range/Units White Blood Count 3.03 4.8-10.8 K/uL Red Blood Count 2.70 4.2-5.4 M/uL Hemoglobin 10.0 12.0-16.0 g/dL Hematocrit 28.6 37-47 % Mean Corpuscular Volume 105.9 80-100 fL Mean Corpuscular Hemoglobin 37.0 25-34 pg Mean Corpuscular Hemoglobin Concent 35.0 32-36 g/dl Platelet Count 93 130-400 K/uL Mean Platelet Volume 10.6 7.4-10.4 fL Neutrophils (%) (Auto) 50.8 % Lymphocytes (%) (Auto) 31.7 % Monocytes (%) (Auto) 10.6 % Eosinophils (%) (Auto) 5.6 % Basophils (%) (Auto) 1.0 % Neutrophils # (Auto) 1.54 1.4-6.5 K/uL Lymphocytes # (Auto) 0.96 1.2-3.4 K/uL Monocytes # (Auto) 0.32 0.11-0.59 K/uL Eosinophils # (Auto) 0.17 0-0.5 K/uL Basophils # (Auto) 0.03 0-0.2 K/uL RDW Standard Deviation 54.3 36.4-46.3 fL RDW Coefficient of Variation 14.3 11.5-14.5 % Immature Granulocyte % (Auto) 0.3 % Immature Granulocyte # (Auto) 0.01 0.00-0.02 K/uL Prothrombin Time 12.0 9.0-12.0 SECONDS Prothromb Time International Ratio 1.1 0.9-1.1 Activated Partial Thromboplast Time 74.4 21.0-31.0 SECONDS Partial Thromboplastin Ratio 2.9 Sodium Level 144 136-145 mmol/L Potassium Level 3.5 3.5-5.1 mmol/L Chloride Level 114 98-107 mmol/L Carbon Dioxide Level 26 21-32 mmol/L Anion Gap 4.0 3-11 mmol/L Blood Urea Nitrogen 17 7-18 mg/dl Creatinine 0.72 0.60-1.20 mg/dl Est Creatinine Clear Calc Drug Dose 100.7 ml/min Estimated GFR () 112.4 Estimated GFR (Non- 97.0 BUN/Creatinine Ratio 24.1 10-20 Random Glucose 257 70-99 mg/dl Calcium Level 7.5 8.5-10.1 mg/dl Diagnostic Radiology R PELVIS/UNILATERAL HIP 2-3VIEWS CLINICAL HISTORY: s/p fall, RLE hip/femur pain, NVI distally, ?shortened trauma COMPARISON: None. DISCUSSION: Intertrochanteric fracture right hip. Slice appear migration right femoral shaft. No evidence of dislocation. No evidence for acetabular protrusion. There is no evidence for soft tissue swelling. IMPRESSION: Intertrochanteric fracture right hip with slight superior migration right femoral shaft The above report was generated using voice recognition software. It may contain grammatical, syntax or spelling errors. Electronically signed by: Kenroy Yates M.D. 04/12/2017 11:42 AM Dictated Date/Time: 04/12/2017 11:42 AM The status of this report is Signed. Draft = Not yet reviewed or approved by Radiologist. Signed = Reviewed and approved by Radiologist. HEAD WITHOUT CONTRAST (CT) CT DOSE: 1168.56 mGy.cm HISTORY: Trauma. Mental status change. EVALUATE FOR TRAUMA/INJURY TECHNIQUE: Multiaxial CT images of the head were performed without the use of intravenous contrast. A dose lowering technique was utilized adhering to the principles of ALARA. Comparison: None. Findings: Chronic opacification of the mastoid air cells. This is unchanged from the prior exam. The calvarium and skull base are intact. The ventricles and sulci are within normal limits. There is no mass, hematoma, midline shift, or acute infarct. Minimal age-related change Impression: No acute intracranial abnormality. Chronic opacification of the mastoid air cells. The above report was generated using voice recognition software. It may contain grammatical, syntax or spelling errors. Electronically signed by: Kenroy Yates M.D. 04/12/2017 1:55 PM Dictated Date/Time: 04/12/2017 1:54 PM The status of this report is Signed. Draft = Not yet reviewed or approved by Radiologist. Signed = Reviewed and approved by Radiologist. R FEMUR 2 VIEWS ROUTINE CLINICAL HISTORY: s/p fall, RLE hip/femur pain, NVI distally, ?shortened COMPARISON: None. DISCUSSION: The distal aspect of the right femur appears intact. The intertrochanteric fracture of the right hip is again noted. Slice appear migration of the femoral shaft is present. Mild degenerative changes of the right knee. There is no evidence for soft tissue swelling. IMPRESSION: No acute process of the mid to distal right femur. The previously described intertrochanteric fracture right hip is again noted. Slight superior migration right femoral shaft. The above report was generated using voice recognition software. It may contain grammatical, syntax or spelling errors. Electronically signed by: Kenroy Yates M.D. 04/12/2017 11:44 AM Dictated Date/Time: 04/12/2017 11:43 AM The status of this report is Signed. Draft = Not yet reviewed or approved by Radiologist. Signed = Reviewed and approved by Radiologist. CERVICAL SPINE W/O CT DOSE: HISTORY: Trauma EVALUATE FOR TRAUMA/INJURY TECHNIQUE: Multiaxial CT images of the cervical spine were performed and reformatted in the sagittal and coronal plane without the use of contrast. A dose lowering technique was utilized adhering to the principles of ALARA. COMPARISON: 09/19/2016 FINDINGS: No fractures. No subluxation. Prevertebral soft tissues and the C1-C2 interval are intact. No pneumothorax. Moderate degenerative change from C6 through C7. IMPRESSION: No fractures within the cervical spine. Moderate degenerative change. No acute process. The above report was generated using voice recognition software. It may contain grammatical, syntax or spelling errors. Electronically signed by: Kenroy Yates M.D. 04/12/2017 1:53 PM Dictated Date/Time: 04/12/2017 1:51 PM The status of this report is Signed. Draft = Not yet reviewed or approved by Radiologist. Signed = Reviewed and approved by Radiologist. Impression Assessment and Plan Patient is a pleasant 51 y/o female, with PMHx liver cirrhosis, T2DM, hypothyroidism, seizure disorder, migraines, asthma, parkinsonism, bipolar disorder, depression, chronic pancytopenia, and GERD, who presented to the ED because of a mechanical fall occurring this AM resulting in R intertrochanteric hip fracture. R intertrochanteric hip fracture s/p mechanical fall: - Admit to med/surg - Continue Roxicodone PRN and IV Dilaudid 0.5 mg q3 hrs PRN for pain management - Check vitamin D level - Orthopedics consulted, appreciate recommendations- made NPO after MD Liver cirrhosis. chronic pancytopenia: - Chronically elevated ammonia level- 122 at admission- STABLE - Lactulose 30 g BID, Rifaximin 550 mg BID T2DM- ha1c 4.8% on 12/2016: - Continue Lantus 40 u BID - Hold Humalog 20-30 u TID w/ meals while inpatient - BSG ACHS w/ sliding insulin scale - extension educator consultation Recent UTI- diagnosed in ED on 04/06: Continue Cefdinir- last day of treatment Hypothyroidism: Synthroid 75 mcg daily Bipolar disorder, depression: Remeron 45 mg HS, Zoloft 25 mg daily Seizure disorder: Continue Keppra 2000 mg BID, Trileptal 300 mg HS Asthma: Continue Ventolin and Symbicort h/o migraines: Maxalt 10 mg q2 hrs PRN, Topamax 75 mg BID GERD: Protonix 40 mg daily DVT prophylaxis: MIRYAM/SCDs; hold chemical prophylaxis due to upcoming ortho procedure Code Status: LEVEL I, FULL Dispo: From home, lives w/ - CM consulted Level of Care Med/Surg Resuscitation Status FULL RESUSCITATION VTE Prophylaxis VTE Risk Assessment Done? Y/N: Yes Risk Level: Moderate Given or contraindicated: T.E.D. Stockings, SCD's, Contraindicated Reviewed: Pt Seen/Exam by Me History Pt has pain with any movement. She has ongoing nausea. No chest pain or SOB. Agree with HPI/ROS as noted by PA General Appearance: no apparent distress, obese Respiratory: normal breath sounds, no respiratory distress Cardiovascular: normal peripheral pulses, regular rate, rhythm Gastrointestinal: non tender, soft Extremities: non-tender, no pedal edema Neurologic/Psychiatric: alert, other (flat affect) Skin Characteristics: normal color, warm/dry Assessment/Plan Agree with plan as outlined above Pt with several health issues, all of which appear to be at baseline PTT is elevated, which is likely related to her chronic liver disease/cirrhosis and has been seen in the past INR is WNL and platelets are chronically low Will have hem/onc eval pt to determine if there is bleeding risk for OR
[2017-04-12] MEDS ORDERED: GLUCAGON FOR INJ 1 MG VIAL SQ PRN (15:30)
[2017-04-12] MEDS ORDERED: GLUCOSE 10 TABS/TUBE PO PRN (15:30)
[2017-04-12] MEDS ORDERED: DEXTROSE 50% 50 ML SYR IV PRN (15:30)
[2017-04-12] MEDS ORDERED: GLUCOSE 40% GEL 15 GM TUBE PO PRN (15:30)
[2017-04-12 15:45] VITALS: BP 176/98; PULSE 104; TEMP 36.9; O2SAT 97
[2017-04-12] MEDS ORDERED: POLYETHYLENE (MIRALAX) 17 GM PACK PO PRN (15:45)
[2017-04-12] MEDS: HYDROmorphone INJ 0.5 MG/0.5 ML SYR IV PRN ×2 (16:33→22:07)
[2017-04-12 16:52] VITALS: O2SAT 96; BMI 34.5
[2017-04-12] MEDS: INSULIN ASPART 100 UNITS/ML 3 ML PEN SC SCH ×3 (17:15→23:59)
[2017-04-12] MEDS ORDERED: NURSING VERBAL MED ORDER ONE ×2 (17:30→22:15)
[2017-04-12 18:46] VITALS: BP 125/74
--- NOTE | 2017-04-12 18:58 | ORTHOPEDIC CONSULTATION ---
DATE OF CONSULTATION: 04/12/2017 Special attention to right hip fracture. HISTORY OF PRESENT ILLNESS: This is a 51-year-old female with extensive past medical history including a liver cirrhosis, type 2 diabetes, hypothyroidism, seizure disorder, migraines, asthma, Parkinson's, bipolar disorder, depression, chronic pancytopenia, GERD who sustained a mechanical fall this morning. She complains of pain and inability to bear weight in the right hip. She states she was putting her pajamas on and her foot got stuck. She was seen in the Emergency Department and currently admitted to the medical service. She did receive pain medication and does answer questions to a limited degree currently and does appear lethargic. She denies any other chest pain, shortness of breath, dizziness or other injuries . PAST MEDICAL HISTORY: As above. PAST SURGICAL HISTORY: Cholecystectomy, hysterectomy, kyphoplasty, tonsillectomy, appendectomy, nasal septoplasty. Status post open reduction and internal fixation, proximal humerus fracture in the past. MEDICATIONS: Vitamin C, Bumex, Omnicef, vitamin D, Lantus insulin, lactulose, lecithin, levetiracetam, levothyroxine, Lutein, magnesium, mirtazapine, multivitamin, Prilosec, Trileptal, potassium, probiotic, Phenergan, sertraline, Topamax, vitamin A, zinc, Ventolin, benzonatate, Delsym, EpiPen, Roxicodone, Maxalt. PHYSICAL EXAMINATION: ABDOMEN: Soft, nontender. EXTREMITIES: Upper extremities show no obvious evidence of trauma, swelling or tenderness and she has supple motion of her extremities. Left leg shows no obvious evidence of trauma. She has no pain with log roll. Right lower extremity is shortened and externally rotated. She has palpable dorsalis pedis pulse. She can wiggle her toes and flex and extend the ankle, but exam is limited secondary to patient discomfort. She has pain with log roll of the right hip. Radiographic evaluation AP pelvis and multiple views of the femur does show an intertrochanteric displaced hip fracture. Slight varus angulation is seen with shortening of the femur. A large lesser trochanteric piece is seen and is displaced. LABORATORY STUDIES: PTT 74. INR 1.1, PT 12. Hemoglobin 10.0. Recent ammonia level is 122. ASSESSMENT: Right intertrochanteric hip fracture. PLAN: I discussed treatment options with her. I do feel she has displaced intertrochanteric hip fracture and would benefit from surgical treatment if she is medically cleared. Treatment will include intramedullary hip nail. We will further investigate her PTT which is markedly elevated. If it is not a contraindication for surgery, we will plan for surgical intervention shortly if medically cleared. Will continue to follow her. I will discuss further with her for informed consent.
[2017-04-12] MEDS: LACTULOSE SYRUP 20 GM/30 ML UDC PO SCH (21:00)
[2017-04-12] MEDS ORDERED: POTASSIUM GLUCONATE PO SCH (21:00)
[2017-04-12] MEDS: TOPIRAMATE 25 MG TAB PO SCH ×2 (21:23→21:24)
[2017-04-12] MEDS: OXCARBAZEPINE 150 MG TAB PO SCH (21:25)
[2017-04-12] MEDS: RIFAXIMIN TAB 550 MG TAB PO SCH (21:25)
[2017-04-12] MEDS: INSULIN GLARGINE SC SCH (21:33)
[2017-04-12] MEDS: CEFDINIR 300 MG CAP PO SCH (21:45)
[2017-04-12] MEDS: MIRTAZAPINE TAB 15 MG TAB PO SCH (21:46)
[2017-04-12] MEDS: LEVETIRACETAM 500 MG TAB PO SCH (21:46)
[2017-04-12] MEDS: MAGNESIUM OXIDE 400 MG TAB PO SCH (21:47)
[2017-04-12 22:42] VITALS: BP 141/72; PULSE 100; TEMP 37.2; O2SAT 95
[2017-04-13] VITALS (8 sets, daily range): BP systolic 98–148; BP diastolic 49–111; PULSE 94–119; TEMP 36.8–37.6; O2SAT 93–100
[2017-04-13] MEDS: HYDROmorphone INJ 0.5 MG/0.5 ML SYR IV PRN ×4 (01:16→21:02)
[2017-04-13] MEDS: PROCHLORPERAZINE INJ 5 MG in SYRINGE 4 ML IV PRN (02:41)
[2017-04-13] MEDS: OXYCODONE HCL IR 5 MG TAB (IMMEDIATE RELEASE) PO PRN ×2 (02:41→23:55)
[2017-04-13] MEDS: INSULIN ASPART 100 UNITS/ML 3 ML PEN SC SCH ×3 (05:28→21:00)
[2017-04-13] MEDS: LEVOTHYROXINE 75 MCG TAB PO SCH (05:28)
[2017-04-13 05:40] LABS: HEMATOCRIT 27.3 % (37-47); HEMOGLOBIN 9.4 g/dL (12.0-16.0); MEAN CELL VOLUME 105.4 fL (80-100); MEAN CORPUSCULAR HEMOGLOBIN 36.3 pg (25-34); MEAN CORPUSCULAR HGB CONC 34.4 g/dl (32-36); RED CELL DISTRIBUTION WIDTH CV 14.8 % (11.5-14.5); RED CELL DISTRIBUTION WIDTH SD 55.9 fL (36.4-46.3); WHITE BLOOD COUNT 5.58 K/uL (4.8-10.8)
[2017-04-13 05:53] LABS: MEAN PLATELET VOLUME 10.2 fL (7.4-10.4); PLATELET COUNT 94 K/uL (130-400)
[2017-04-13] MEDS ORDERED: CEFAZOLIN SOD 1000MG/5 ML IV PUSH IV ONE (06:00)
[2017-04-13 06:08] LABS: CALCIUM 7.5 mg/dl (8.5-10.1); CREATININE 0.64 mg/dl (0.60-1.20); POTASSIUM 3.5 mmol/L (3.5-5.1)
[2017-04-13] MEDS: RIZATRIPTAN BENZOATE 10 MG TAB PO PRN (07:57)
[2017-04-13] MEDS: OXCARBAZEPINE 150 MG TAB PO SCH ×2 (07:57→21:08)
[2017-04-13] MEDS: TOPIRAMATE 25 MG TAB PO SCH ×4 (07:58→21:10)
[2017-04-13] MEDS: LEVETIRACETAM 500 MG TAB PO SCH ×2 (08:00→21:07)
[2017-04-13] MEDS: INSULIN GLARGINE SC SCH (09:00)
[2017-04-13] MEDS: CEFDINIR 300 MG CAP PO SCH ×2 (09:00→21:07)
[2017-04-13] MEDS: CHOLECALCIFEROL 1000 INTER.UNIT TAB PO SCH (09:00)
[2017-04-13] MEDS: LACTULOSE SYRUP 20 GM/30 ML UDC PO SCH ×2 (09:00→20:59)
[2017-04-13] MEDS: SERTRALINE HCL 50 MG TAB PO SCH (09:00)
[2017-04-13] MEDS: MULTIVITAMIN TAB PO SCH (09:00)
[2017-04-13] MEDS: RIFAXIMIN TAB 550 MG TAB PO SCH ×2 (09:00→21:07)
[2017-04-13] MEDS: MAGNESIUM OXIDE 400 MG TAB PO SCH ×2 (09:00→21:08)
[2017-04-13] MEDS: LACTOBACILLUS ACIDOPHILUS (FLORANEX) TAB PO SCH (09:00)
[2017-04-13] MEDS: BUMETANIDE 1 MG TAB PO SCH (09:00)
[2017-04-13] MEDS: PANTOprazole SOD 40 MG TAB PO SCH (09:00)
[2017-04-13] MEDS ORDERED: HYDROmorphone INJ 1 MG/ML SYR IV PRN ×2 (09:45→15:45)
[2017-04-13 10:02] LABS: INR 1.2 (0.9-1.1); PTT PATIENT 29.6 SECONDS (21.0-31.0)
--- NOTE | 2017-04-13 10:12 | PROGRESS NOTE ---
DATE: 04/13/2017 SUBJECTIVE: Marcelle as seen at the bedside today. She has an appropriate amount of pain in the right hip. She denies any other complaints. OBJECTIVE: Right lower extremity is slightly shortened and externally rotated. She has pain with logroll of the right hip. ASSESSMENT: Hospital day #1 status post right intertrochanteric hip fracture. PLAN: I discussed with her and her treatment options. I discussed personally with hematology the findings of an elevated PTT level is likely that this may be abnormality from drawing the blood off of her port, which may be contaminated with heparin. We will draw a new PTT this morning. If this is normal, we will proceed with surgical intervention. If this is abnormal, she likely would need bleeding studies. I have obtained informed consent from both her and her . Risks and benefits have been discussed including, but not limited to, risk of infection, stiffness, loss of motion, failure to improve, etc. They are agreeable and wished to proceed with surgical intervention. CYNDI
--- NOTE | 2017-04-13 10:12 | Oncology Consultation ---
Oncology/Heme Consultation Date of Consultation: Apr 13, 2017. Attending Physician: Erick Rice M.D. Reason for Consultation: Elevated PTT Pancytopenia History of Present Illness Ms. 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 She sees me as an outpatient to monitor her mild, chronic pancytopenia. Her counts are stable in their baseline range. She sustained a mechanical fall that led to to a right intertrochanteric hip fracture. She is pending surgical intervention and is in a tremendous amount of pain. She had lab work drawn in the ER off of a central line. These labs revealed a PTT of 74.4 seconds, with a normal PT/INR. She has been on an antibiotic for the last week for a UTI but otherwise denies any new medications. Her liver disease has been largely stable of late. She denies any bleeding or bruising. Past Medical/Surgical History Medical Problems: (1) Acute bronchitis Status: Acute (2) Acute bronchitis Status: Acute (3) Acute hepatic encephalopathy Status: Acute (4) Alkaline phosphatase elevation Status: Acute (5) Back pain Status: Acute (6) Bradycardia Status: Acute (7) Breakthrough seizure Status: Acute (8) Burn Status: Acute (9) Change in mental status Status: Acute (10) Change in mental status Status: Acute (11) Change in mental status Status: Acute (12) Change in mental status Status: Acute (13) Chronic low back pain Status: Acute (14) Closed head injury Status: Acute (15) Dehydration Status: Acute (16) Dizziness Status: Acute (17) Facial laceration Status: Acute (18) Fall Status: Acute (19) Fall Status: Acute (20) Fall Status: Acute (21) Fall Status: Acute (22) Fatigue Status: Acute (23) Hemorrhoid Status: Acute (24) Hepatic encephalopathy Status: Acute (25) Hepatic encephalopathy Status: Acute (26) Hepatic encephalopathy Status: Acute (27) Hepatic encephalopathy Status: Acute (28) Hepatic encephalopathy Status: Acute (29) Hepatic encephalopathy Status: Acute (30) Hepatic encephalopathy Status: Acute (31) Hepatic encephalopathy Status: Acute (32) Hepatic encephalopathy Status: Acute (33) Hepatic encephalopathy Status: Acute (34) Hepatic encephalopathy Status: Acute (35) Hepatic encephalopathy Status: Acute (36) Hepatic encephalopathy Status: Acute (37) Hepatic encephalopathy Status: Acute (38) Hyperammonemia Status: Acute (39) Hyperammonemia Status: Acute (40) Hyperammonemia Status: Acute (41) Hyperammonemia Status: Acute (42) Hypocalcemia Status: Acute (43) Hypocalcemia Status: Acute (44) Hypokalemia Status: Acute (45) Hypokalemia Status: Acute (46) Hypokalemia Status: Acute (47) Hypomagnesemia Status: Acute (48) Increased ammonia level Status: Acute (49) Intertrochanteric fracture of left femur Status: Acute (50) Left foot pain Status: Acute (51) Left shoulder pain Status: Acute (52) Leukopenia Status: Acute (53) Low back pain Status: Acute (54) Migraine Status: Acute (55) Nausea & vomiting Status: Acute (56) Noncompliance with medication regimen Status: Acute (57) Pain in pelvis Status: Acute (58) Pancytopenia Status: Acute (59) Persistent vomiting Status: Acute (60) Post-operative pain Status: Acute (61) Right ear pain Status: Acute (62) Right groin pain Status: Acute (63) Right hip pain Status: Acute (64) Right upper lobe pneumonia Status: Acute (65) RUQ abdominal pain Status: Acute (66) Sepsis Status: Acute (67) Vomiting Status: Acute (68) Weakness Status: Acute (69) Weakness Status: Acute (70) Weakness Status: Acute (71) Weakness Status: Acute Family History Depression Hypertension Social History Smoking Status: Never Smoker Drug Use: none Marital Status: Housing Status: lives with significant other Occupation Status: disabled Allergies Coded Allergies: Amoxicillin (Verified Allergy, Intermediate, HIVES; Has tolerated cephalosporins (Rocephin, Ceftin,Keflex, 04/12/17) Azithromycin (Verified Allergy, Intermediate, HIVES, 04/12/17) Baclofen (Verified Allergy, Intermediate, RASH, 04/12/17) Butalbital (Verified Allergy, Intermediate, HIVES, 04/12/17) Clarithromycin (Verified Allergy, Intermediate, RASH, 04/12/17) Dicyclomine (Verified Allergy, Intermediate, HIVES, 04/12/17) HIVES Penicillins (Verified Allergy, Intermediate, RASH; has tolerated cephs ( Rocephin, Keflex, Ceftin), 04/12/17) PT STATES SHE GETS WELTS FROM CIPRO,LEVAQUIN [facility]ER[facility] PER DR ROBLES Tetracyclines (Verified Allergy, Intermediate, DOXYCYCLINE-HIVES, 04/12/17) Sulindac (Verified Allergy, Mild, ALLERGY LISTED "CLONDORAL"--HIVES, ) Adhesives (Verified Allergy, Unknown, RASH, DUODERM=RED,ITCHY, 04/12/17) PLASTIC TAPE IS OK!!! DUODERM=RED,ITCHY Clavulanic Acid (Unverified Allergy, Unknown, diahrea , 04/12/17) Metronidazole (Verified Allergy, Unknown, SEIZURE, 04/12/17) Tramadol (Verified Allergy, Unknown, SEIZURES, 04/12/17) Metoclopramide (Verified Adverse Reaction, Severe, SEIZURES, 04/12/17) Blueberry (Verified Adverse Reaction, Mild, STOMACH PAIN, 04/12/17) Furosemide (Verified Adverse Reaction, Unknown, HIVES, 04/12/17) Home Medications Scheduled Ascorbic Acid (Vitamin C), 1,000 MG PO DAILY Bumetanide (Bumex), 1 MG PO QAM Cefdinir (Omnicef), 300 MG PO Q12H Cholecalciferol (Vitamin D), 5,000 UNITS PO DAILY Cranberry (Vaccinium Macrocarp (Cranberry Extract), 1 CAP PO BID Insulin Glargine (Lantus Solostar), 40 SC AMPM Insulin Lispro (Human) (Humalog Kwikpen), UNITS SC UD Lactulose (Chronulac), 30 ML PO BID Lecithin (Lecithin 3500), 1 CAP PO DAILY Levetiracetam (Levetiracetam), 2,000 MG PO BID Levothyroxine Sodium (Levothyroxine Sodium), 75 MCG PO QAM Lutein-Zeaxanthin (Lutein), 1 CAP PO DAILY Magnesium Oxide (Mg Supplement (Magnesium), 500 MG PO BID Mirtazapine (Mirtazapine), 1 TAB PO HS Multivitamin (Multivitamin), 1 TAB PO DAILY Omeprazole (Prilosec), 20 MG PO QAM Oxcarbazepine (Trileptal), 300 MG PO AMHS Potassium Gluconate (Hm Potassium), 1 TAB PO BID Probiotic Product (Probiotic), 1 CAP PO DAILY Promethazine (Phenergan ), 1-2 TABS PO Q6 Rifaximin (Xifaxan), 550 MG PO BID Sertraline HCl (Sertraline HCl), 25 MG PO DAILY Topiramate (Topamax), 50 MG PO BID Topiramate (Topamax ), 25 MG PO BID Vitamin A (Vitamin A), 1 CAP PO QAM Zinc Gluconate (Zinc), 50 MG PO BID Scheduled PRN Albuterol Hfa (Ventolin Hfa), 2-4 PUFFS INH Q6H PRN for Shortness of Breath Benzonatate (Benzonatate), 1 CAP PO TID PRN for Cough Dextromethorphan Polistirex (Delsym), 10 ML PO Q8 PRN for Cough Epinephrine (Epipen), 0.3 MG IM UD PRN for ALLERGIC REACTION Oxycodone Ir (Roxicodone Ir), 5 MG PO Q8 PRN for Pain Rizatriptan Benzoate (Maxalt), 10 MG PO DIRECTED PRN for Migraine Current Inpatient Medications Current Inpatient Medications Medications (Trade) Dose Ordered Sig/Danita Route Start Time Stop Time Status Last Admin Dose Admin Acetaminophen (Tylenol Tab) 650 mg Q4H PRN PO 04/12/17 14:30 05/12/17 14:29 Al Hydrox/Mg Hydrox/Simethicone (Maalox Max Susp) 15 ml Q4H PRN PO 04/12/17 14:30 05/12/17 14:29 Magnesium Hydroxide (Milk Of Magnesia Susp) 30 ml Q6H PRN PO 04/12/17 14:30 05/12/17 14:29 Polyethylene (Miralax Powder Packet) 17 gm DAILY PRN PO 04/12/17 15:45 05/12/17 15:44 Albuterol (Ventolin Hfa Inhaler) 2 puffs Q6H PRN INH 04/12/17 14:30 05/12/17 14:29 Bumetanide (Bumex Tab) 1 mg QAM PO 04/13/17 09:00 05/13/17 08:59 Cefdinir (Omnicef Cap) 300 mg Q12H PO 04/12/17 21:00 04/17/17 20:59 04/12/17 21:45 300 MG Cholecalciferol (Vitamin D Tab) 5,000 inter.unit DAILY PO 04/13/17 09:00 05/13/17 08:59 Insulin Glargine (Lantus Vial) 40 units BID SC 04/12/17 21:00 05/12/17 20:59 04/12/17 21:33 40 UNITS Lactulose (Chronulac Syrup) 20 gm BID PO 04/12/17 21:00 05/12/17 20:59 Levothyroxine Sodium (Synthroid Tab) 75 mcg DAILYBB PO 04/13/17 06:00 05/13/17 05:59 04/13/17 05:28 75 MCG Multivitamins (Multivitamin Tab) 1 tab DAILY PO 04/13/17 09:00 05/13/17 08:59 Oxcarbazepine (Trileptal Tab) 300 mg AMHS PO 04/12/17 21:00 05/12/17 20:59 04/13/17 07:57 300 MG Oxycodone HCl (Roxicodone Immediate Rel Tab) 5 mg Q8H PRN PO 04/12/17 14:30 04/26/17 14:29 04/13/17 02:41 5 MG Rifaximin (Xifaxan Tab) 550 mg BID PO 04/12/17 21:00 05/12/17 20:59 04/12/17 21:25 550 MG Rizatriptan Benzoate (Maxalt Tab) 10 mg DAILY PRN PO 04/12/17 14:30 05/12/17 14:29 04/13/17 07:57 10 MG Topiramate (Topamax Tab) 25 mg BID PO 04/12/17 21:00 05/12/17 20:59 04/13/17 07:58 25 MG Topiramate (Topamax Tab) 50 mg BID PO 04/12/17 21:00 05/12/17 20:59 04/13/17 07:59 50 MG Levetiracetam (Keppra Tab) 2,000 mg BID PO 04/12/17 21:15 05/12/17 21:14 04/13/17 08:00 2,000 MG Magnesium Oxide (Mag-Ox Tab) 400 mg BID PO 04/12/17 21:00 05/12/17 20:59 04/12/17 21:47 400 MG Mirtazapine (Remeron Tab) 45 mg HS PO 04/12/17 21:00 05/12/17 20:59 04/12/17 21:46 45 MG Lactobacillus Acidophilus (Floranex Tab) 1 tab DAILY PO 04/13/17 09:00 05/13/17 08:59 Sertraline HCl (Zoloft Tab) 25 mg DAILY PO 04/13/17 09:00 05/13/17 08:59 Hydromorphone HCl (Dilaudid Inj) 0.5 mg Q3H PRN IV 04/12/17 14:30 04/26/17 14:29 04/13/17 08:37 0.5 MG Pantoprazole Sodium (Protonix Tab) 40 mg QAM PO 04/13/17 09:00 04/16/17 09:01 Ondansetron HCl (Zofran Inj) 4 mg Q4H PRN IV 04/12/17 15:00 05/12/17 14:59 04/13/17 05:26 4 MG Glucose (Glucose 40% Gel) 15-30 GRAMS 15 GRAMS... UD PRN PO 04/12/17 15:30 05/12/17 15:29 Glucose (Glucose Chew Tab) 4-8 Tablets 4 Tabl... UD PRN PO 04/12/17 15:30 05/12/17 15:29 Dextrose (Dextrose 50% 50ML Syringe) 25-50ML OF 50% DW IV FOR... UD PRN IV 04/12/17 15:30 05/12/17 15:29 Glucagon (Glucagon Inj) 1 mg UD PRN SQ 04/12/17 15:30 05/12/17 15:29 Prochlorperazine Edisylate 5 mg/ Syringe 5 ml @ 5 mls/min Q6H PRN IV 04/12/17 19:00 05/12/17 18:59 04/13/17 02:41 5 MLS/MIN Heparin Sodium (Porcine) (Heparin 100 Unit/ml 5ml Flush) 5 ml PRN PRN IV 04/12/17 21:15 05/12/17 21:14 04/13/17 08:37 5 ML Insulin Aspart (novoLOG ASPART) SLIDING SCALE G... Q6 SC 04/13/17 00:00 05/13/17 00:00 04/12/17 23:59 3 UNITS Hydromorphone HCl (Dilaudid Inj) 1 mg Q3H PRN IV 04/13/17 09:45 04/27/17 09:44 UNV Review of Systems Constitutional: No fever, No chills ENT: No unusual epistaxis Respiratory: No cough, No hemoptysis Cardiovascular: No chest pain Abdomen: No pain, No GI bleeding Musculoskeletal: + joint pain (right hip pain, "11/01") Genitourinary - Female: No dysuria, No hematuria Hematologic / Lymphatic: No abnormal bleeding/bruising Integumentary: No bleeding Physical Exam Date Time Temp Pulse Resp B/P (MAP) Pulse Ox O2 Delivery O2 Flow Rate FiO2 04/13/17 08:35 Oxymask 4.0 04/13/17 07:17 37.0 94 18 148/83 (104) 93 Room Air 04/13/17 00:00 Room Air 04/12/17 22:42 37.2 100 18 141/72 (95) 95 Room Air 04/12/17 18:46 125/74 (91) 04/12/17 16:52 96 Nasal Cannula 04/12/17 16:45 Mask 4.0 04/12/17 15:45 36.9 104 18 176/98 (124) 97 Mask 4.0 04/12/17 15:02 102 20 04/12/17 13:52 Mask 4.0 04/12/17 13:50 92 04/12/17 13:42 94 16 172/106 100 Humidified Oxygen 4.0 Mask 04/12/17 13:11 95 Room Air 04/12/17 12:47 84 20 110/65 97 Room Air 04/12/17 11:53 99 Room Air 04/12/17 10:38 36.7 80 16 164/59 100 Room Air 04/12/17 10:34 79 General Appearance: WD/WN, + moderate distress (due to pain) Eyes: EOMI ENT: pharynx normal (no bleeding) Respiratory/Chest: lungs clear Cardiovascular: regular rate, rhythm Abdomen/GI: non tender, soft Extremities/Musculoskelatal: no pedal edema Neurologic/Psych: alert, oriented x 3 Skin: no rash Laboratory Results Last 24 Hours Test 04/12/17 16:59 04/12/17 20:36 04/12/17 23:57 04/13/17 05:25 Bedside Glucose 137 mg/dl 181 mg/dl 233 mg/dl White Blood Count 5.58 K/uL Red Blood Count 2.59 M/uL Hemoglobin 9.4 g/dL Hematocrit 27.3 % Mean Corpuscular Volume 105.4 fL Mean Corpuscular Hemoglobin 36.3 pg Mean Corpuscular Hemoglobin Concent 34.4 g/dl RDW Standard Deviation 55.9 fL RDW Coefficient of Variation 14.8 % Platelet Count 94 K/uL Mean Platelet Volume 10.2 fL Sodium Level 139 mmol/L Potassium Level 3.5 mmol/L Chloride Level 107 mmol/L Carbon Dioxide Level 28 mmol/L Anion Gap 4.0 mmol/L Blood Urea Nitrogen 18 mg/dl Creatinine 0.64 mg/dl Est Creatinine Clear Calc Drug Dose 117.9 ml/min Estimated GFR () 119.7 Estimated GFR (Non- 103.3 BUN/Creatinine Ratio 28.6 Random Glucose 160 mg/dl Calcium Level 7.5 mg/dl Test 04/13/17 05:28 04/13/17 09:45 Bedside Glucose 167 mg/dl Assessment & Plan Ms. Munson has a long-standing history of cirrhosis and ESLD. Her coags have been generally normal, however. An isolated prolonged PTT would be a very unusual finding in liver disease, suggesting possibly an acquired inhibitor. However, a much more likely explanation is a spurious finding. The PTT was drawn off a central line, which is likely heparinized and which had been flushed with heparin flushes. Indeed, I asked the lab to draw a repeat PTT from a peripheral stick which was normal (29.6 sec). Her PT/INR were slightly prolonged (12.4/1.2), which is consistent with her liver disease and should not interfere with her surgery. Her platelets are also in a range that should be safe for surgery, particularly given the emergent nature of the procedure. We will sign off for now, but would be happy to come back to see Ms. Munson if she has any additional hematologic issues during her stay.
--- NOTE | 2017-04-13 11:26 | Hospitalist Progress Note ---
Hospitalist Progress Note Date of Service Apr 13, 2017. (Jade Aaron ., PA-C) Subjective Pt evaluation today including: conversation w/ patient, conversation w/ family ( at bedside ), physical exam, lab review, conversation w/ desktop support consultant ( Dr. Godwin ), review of inpatient medication list Voiding: liu catheter in place (draining clear/yellow urine ) Patient resting in bed. NPO for surgical procedure today. Pain is 12/10 from 11/01. Patient denies any fever, chills, sweats, lightheadedness, dizziness, vision changes, CP, palpitations, edema, SOB, wheezing, cough, abdominal pain, nausea, vomiting, diarrhea, urinary symptoms, melena, numbness/tingling, weakness, anxiety/depression, active bleeding, or new skin discoloration/changes. (Jade Aaron ., GHULAM-C) Medications Current Inpatient Medications Medications (Trade) Dose Ordered Sig/Danita Route Start Time Stop Time Status Last Admin Dose Admin Acetaminophen (Tylenol Tab) 650 mg Q4H PRN PO 04/12/17 14:30 05/12/17 14:29 Al Hydrox/Mg Hydrox/Simethicone (Maalox Max Susp) 15 ml Q4H PRN PO 04/12/17 14:30 05/12/17 14:29 Magnesium Hydroxide (Milk Of Magnesia Susp) 30 ml Q6H PRN PO 04/12/17 14:30 05/12/17 14:29 Polyethylene (Miralax Powder Packet) 17 gm DAILY PRN PO 04/12/17 15:45 05/12/17 15:44 Albuterol (Ventolin Hfa Inhaler) 2 puffs Q6H PRN INH 04/12/17 14:30 05/12/17 14:29 Bumetanide (Bumex Tab) 1 mg QAM PO 04/13/17 09:00 05/13/17 08:59 Cefdinir (Omnicef Cap) 300 mg Q12H PO 04/12/17 21:00 04/17/17 20:59 04/12/17 21:45 300 MG Cholecalciferol (Vitamin D Tab) 5,000 inter.unit DAILY PO 04/13/17 09:00 05/13/17 08:59 Insulin Glargine (Lantus Vial) 40 units BID SC 04/12/17 21:00 05/12/17 20:59 04/12/17 21:33 40 UNITS Lactulose (Chronulac Syrup) 20 gm BID PO 04/12/17 21:00 05/12/17 20:59 Levothyroxine Sodium (Synthroid Tab) 75 mcg DAILYBB PO 04/13/17 06:00 05/13/17 05:59 04/13/17 05:28 75 MCG Multivitamins (Multivitamin Tab) 1 tab DAILY PO 04/13/17 09:00 05/13/17 08:59 Oxcarbazepine (Trileptal Tab) 300 mg AMHS PO 04/12/17 21:00 05/12/17 20:59 04/13/17 07:57 300 MG Oxycodone HCl (Roxicodone Immediate Rel Tab) 5 mg Q8H PRN PO 04/12/17 14:30 04/26/17 14:29 04/13/17 02:41 5 MG Rifaximin (Xifaxan Tab) 550 mg BID PO 04/12/17 21:00 05/12/17 20:59 04/12/17 21:25 550 MG Rizatriptan Benzoate (Maxalt Tab) 10 mg DAILY PRN PO 04/12/17 14:30 05/12/17 14:29 04/13/17 07:57 10 MG Topiramate (Topamax Tab) 25 mg BID PO 04/12/17 21:00 05/12/17 20:59 04/13/17 07:58 25 MG Topiramate (Topamax Tab) 50 mg BID PO 04/12/17 21:00 05/12/17 20:59 04/13/17 07:59 50 MG Levetiracetam (Keppra Tab) 2,000 mg BID PO 04/12/17 21:15 05/12/17 21:14 04/13/17 08:00 2,000 MG Magnesium Oxide (Mag-Ox Tab) 400 mg BID PO 04/12/17 21:00 05/12/17 20:59 04/12/17 21:47 400 MG Mirtazapine (Remeron Tab) 45 mg HS PO 04/12/17 21:00 05/12/17 20:59 04/12/17 21:46 45 MG Lactobacillus Acidophilus (Floranex Tab) 1 tab DAILY PO 04/13/17 09:00 05/13/17 08:59 Sertraline HCl (Zoloft Tab) 25 mg DAILY PO 04/13/17 09:00 05/13/17 08:59 Hydromorphone HCl (Dilaudid Inj) 0.5 mg Q3H PRN IV 04/12/17 14:30 04/26/17 14:29 04/13/17 08:37 0.5 MG Pantoprazole Sodium (Protonix Tab) 40 mg QAM PO 04/13/17 09:00 04/16/17 09:01 Ondansetron HCl (Zofran Inj) 4 mg Q4H PRN IV 04/12/17 15:00 05/12/17 14:59 04/13/17 05:26 4 MG Glucose (Glucose 40% Gel) 15-30 GRAMS 15 GRAMS... UD PRN PO 04/12/17 15:30 05/12/17 15:29 Glucose (Glucose Chew Tab) 4-8 Tablets 4 Tabl... UD PRN PO 04/12/17 15:30 05/12/17 15:29 Dextrose (Dextrose 50% 50ML Syringe) 25-50ML OF 50% DW IV FOR... UD PRN IV 04/12/17 15:30 05/12/17 15:29 Glucagon (Glucagon Inj) 1 mg UD PRN SQ 04/12/17 15:30 05/12/17 15:29 Prochlorperazine Edisylate 5 mg/ Syringe 5 ml @ 5 mls/min Q6H PRN IV 04/12/17 19:00 05/12/17 18:59 04/13/17 02:41 5 MLS/MIN Heparin Sodium (Porcine) (Heparin 100 Unit/ml 5ml Flush) 5 ml PRN PRN IV 04/12/17 21:15 05/12/17 21:14 04/13/17 08:37 5 ML Insulin Aspart (novoLOG ASPART) SLIDING SCALE G... Q6 SC 04/13/17 00:00 05/13/17 00:00 04/12/17 23:59 3 UNITS Hydromorphone HCl (Dilaudid Inj) 1 mg Q3H PRN IV 04/13/17 09:45 04/27/17 09:44 UNV (Jade Aaron PA-C) Objective Vital Signs Date Time Temp Pulse Resp B/P (MAP) Pulse Ox O2 Delivery O2 Flow Rate FiO2 04/13/17 08:35 Oxymask 4.0 04/13/17 07:17 37.0 94 18 148/83 (104) 93 Room Air 04/13/17 00:00 Room Air 04/12/17 22:42 37.2 100 18 141/72 (95) 95 Room Air 04/12/17 18:46 125/74 (91) 04/12/17 16:52 96 Nasal Cannula 04/12/17 16:45 Mask 4.0 04/12/17 15:45 36.9 104 18 176/98 (124) 97 Mask 4.0 04/12/17 15:02 102 20 04/12/17 13:52 Mask 4.0 04/12/17 13:50 92 04/12/17 13:42 94 16 172/106 100 Humidified Oxygen 4.0 Mask 04/12/17 13:11 95 Room Air 04/12/17 12:47 84 20 110/65 97 Room Air 04/12/17 11:53 99 Room Air (Jade Aaron, GHULAM-C) Physical Exam General Appearance: no apparent distress, + obese Eyes: normal inspection, PERRL ENT: hearing grossly normal Neck: supple Respiratory/Chest: lungs clear, no respiratory distress, no accessory muscle use Cardiovascular: regular rate, rhythm Abdomen: normal bowel sounds, non tender, soft Extremities: no pedal edema, no calf tenderness Neurologic/Psychiatric: alert, oriented x 3, + depressed affect Skin: normal color, warm/dry, no rash (Jade Aaron, GHULAM-C) Laboratory Results Last 24 Hours Test 04/12/17 16:59 04/12/17 20:36 04/12/17 23:57 04/13/17 05:25 Bedside Glucose 137 mg/dl 181 mg/dl 233 mg/dl White Blood Count 5.58 K/uL Red Blood Count 2.59 M/uL Hemoglobin 9.4 g/dL Hematocrit 27.3 % Mean Corpuscular Volume 105.4 fL Mean Corpuscular Hemoglobin 36.3 pg Mean Corpuscular Hemoglobin Concent 34.4 g/dl RDW Standard Deviation 55.9 fL RDW Coefficient of Variation 14.8 % Platelet Count 94 K/uL Mean Platelet Volume 10.2 fL Sodium Level 139 mmol/L Potassium Level 3.5 mmol/L Chloride Level 107 mmol/L Carbon Dioxide Level 28 mmol/L Anion Gap 4.0 mmol/L Blood Urea Nitrogen 18 mg/dl Creatinine 0.64 mg/dl Est Creatinine Clear Calc Drug Dose 117.9 ml/min Estimated GFR () 119.7 Estimated GFR (Non- 103.3 BUN/Creatinine Ratio 28.6 Random Glucose 160 mg/dl Calcium Level 7.5 mg/dl Test 04/13/17 05:28 04/13/17 09:45 Bedside Glucose 167 mg/dl Prothrombin Time 12.4 SECONDS Prothromb Time International Ratio 1.2 Activated Partial Thromboplast Time 29.6 SECONDS Partial Thromboplastin Ratio 1.1 (Jade Aaron ., PA-C) Assessment and Plan Patient is a pleasant 51 y/o female, with PMHx liver cirrhosis, T2DM, hypothyroidism, seizure disorder, migraines, asthma, parkinsonism, bipolar disorder, depression, chronic pancytopenia, and GERD, who presented to the ED because of a mechanical fall occurring this AM resulting in R intertrochanteric hip fracture. R intertrochanteric hip fracture s/p mechanical fall: - Admit to med/surg - Continue Roxicodone PRN and IV Dilaudid 1 mg q3 hrs PRN for pain management - Vitamin D level pending - Orthopedics consulted, appreciate recommendations- planning for surgical repair today - Hematology/oncology consulted for surgical clearance due to elevate PTT- repeat WNL, likely elevation due to heparinization Liver cirrhosis. chronic pancytopenia: - Chronically elevated ammonia level- 122 on 04/13- STABLE - Lactulose 30 g BID, Rifaximin 550 mg BID T2DM- ha1c 4.8% on 12/2016: - Continue Lantus 40 u BID - Hold Humalog 20-30 u TID w/ meals while inpatient - BSG ACHS w/ sliding insulin scale - community health educator consultation Recent UTI- diagnosed in ED on 04/06: Continue Cefdinir- last day of treatment Hypothyroidism: Synthroid 75 mcg daily Bipolar disorder, depression: Remeron 45 mg HS, Zoloft 25 mg daily Seizure disorder: Continue Keppra 2000 mg BID, Trileptal 300 mg HS Asthma: Continue Ventolin and Symbicort h/o migraines: Maxalt 10 mg q2 hrs PRN, Topamax 75 mg BID GERD: Protonix 40 mg daily DVT prophylaxis: MRIYAM/SCDs; chemical anticoagulation as per surgery Code Status: LEVEL I, FULL Dispo: From home, lives w/ - CM consulted- will likely need rehab at discharge (Jade Aaron ., PA-C) PA Physician Supervision Note: I interviewed and examined the patient. Discussed with Jade Aaron PAC and agree with findings and plan as documented in the note. Any exceptions or clarifications are listed here: None Patient is well-known 51-year-old female with frequent hepatic 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 admitted after being found on the floor with a suspected ground- level fall sustaining a right femoral fracture taken to the operating room 04/13 for intratrochanteric vijaya. In the recovery area the patient was difficult to arouse I was then notified at the patient refused to take her lactulose last evening we have currently the pending ammonia level Postoperative vital signs are stable to slight elevation of her blood pressure she does arouse but is groggy at best her cardiac exam is regular lungs are diminished Traumatic femoral fracture status post repair concern for hepatic encephalopathy Stat ammonia level be checked if it is elevated we will administer lactulose in some way shape or form either orally if she is awake enough, NG tube or enema Continue diabetic management with insulin monitoring for toxic effects Continue antiepileptic medications of Keppra and Trileptal if her mental status prevents her from taking this orally will convert these intravenous Continue her multiple's psychological medications as listed in the note above Documented By: Erick Rice (Erick Rice M.D.)
[2017-04-13] MEDS ORDERED: NEOSTIGMINE METHYLSULFATE 5 MG/5 ML SYR ONE (11:40)
[2017-04-13] MEDS ORDERED: ONDANSETRON INJ 2 MG/ML 2 ML VIAL ONE (11:40)
[2017-04-13] MEDS ORDERED: PROPOFOL IV EMULSION 10 MG/ML 20 ML VIAL IV ONE (11:40)
[2017-04-13] MEDS ORDERED: GLYCOPYRROLATE INJ 0.2 MG/ML VIAL ONE (11:40)
[2017-04-13] MEDS ORDERED: LIDOCAINE HCL 2% 2 ML VIAL (20MG/ML) ONE (11:40)
[2017-04-13] MEDS ORDERED: MIDAZOLAM HCL 1 MG/ML 2ML VIAL ONE (11:40)
[2017-04-13] MEDS ORDERED: CISATRACURIUM BESYLATE IV SOLN 2 MG/ML 10 ML VIAL ONE (11:40)
[2017-04-13] MEDS ORDERED: FENTANYL CITRATE INJ 50 MCG/1 ML 2 ML VIAL ONE ×3 (11:40→15:31)
[2017-04-13] MEDS ORDERED: SODIUM CHLORIDE 0.9% INJ 10 ML VIAL ONE (12:16)
[2017-04-13] MEDS ORDERED: CEFAZOLIN SOD 1 GM VIAL ONE (12:16)
[2017-04-13] MEDS ORDERED: BUPIVACAINE 0.5 % 5 MG/1 ML MPF 30ML VIAL ONE (12:48)
--- NOTE | 2017-04-13 14:39 | [facility] Post Operative Brief Note ---
Immediate Operative Summary Operative Date Apr 13, 2017. Pre-Operative Diagnosis Status Post Right Intertrochanteric Hip Fracture Post-Operative Diagnosis Same as preoperative. Procedure(s) Performed Intramedullary Albert Femur, Right Hip Surgeon Dr. Kevin Moore Hydrogen Plant Operator Surgeon(s) Zuhair Soto PA-C Estimated Blood Loss 300ml Findings intertroch fx wtih subtroch extension Specimens A.) none per surgeon Drains none Anesthesia gen Complication(s) None Disposition Recovery Room / PACU
--- NOTE | 2017-04-13 14:53 | DIAGNOSTIC IMAGING REPORT ---
R FEMUR 2 VIEWS ROUTINE CLINICAL HISTORY: RT TROCHNAIL. Right femur fracture. COMPARISON STUDY: Right femur 04/12/2017. FINDINGS: Total fluoroscopy time is 314 seconds. 4 fluoroscopic spot images of the right femur submitted. There is an intramedullary vijaya with interlocking femoral neck pin traversing the intertrochanteric fracture of the right femur. The hardware appears intact. There is improved anatomic alignment. IMPRESSION: Fluoroscopy provided for internal fixation of a proximal right femur fracture. Electronically signed by: Talon Cruz M.D. 04/13/2017 2:52 PM Dictated Date/Time: 04/13/2017 2:51 PM
[2017-04-13] MEDS ORDERED: MAGNESIUM HYDROXIDE SUSP 30 ML UDC PO PRN (15:00)
[2017-04-13] MEDS ORDERED: SOD PHOSPHATE/SOD BIPHOSPHATE ENEMA 132 ML BTL PR PRN (15:00)
[2017-04-13] MEDS ORDERED: ONDANSETRON INJ 2 MG/ML 2 ML VIAL IV PRN (15:00)
[2017-04-13] MEDS ORDERED: BISACODYL 10 MG SUPP PR PRN (15:00)
[2017-04-13] MEDS ORDERED: ALBUTEROL HFA INHALER 8.5 GM INH ONE (15:09)
[2017-04-13] MEDS ORDERED: ESMOLOL HCL 10 MG/ML 10 ML VIAL ONE (15:09)
[2017-04-13] MEDS ORDERED: LACTULOSE SYRUP 30 GM/45 ML UDP PO ONE (15:31)
[2017-04-13] MEDS ORDERED: LACTULOSE 200GM/700ML WTR ENEMA PR ONE (15:45)
[2017-04-13] MEDS ORDERED: FENTANYL CITRATE INJ 50 MCG/1 ML 2 ML VIAL IV PRN (15:45)
[2017-04-13] MEDS ORDERED: EpHEDrine SULFATE INJ 50 MG/ML AMP IV PRN (15:45)
[2017-04-13] MEDS ORDERED: ATROPINE SULFATE 0.1 MG/ML 5ML SYR IV PRN (15:45)
[2017-04-13] MEDS ORDERED: LACTULOSE SYRUP 200 GM, WATER, STERILE IRRIG 700 ML, BARCODE IDENTIFIER 1 EA PR ONE ×2 (16:00)
[2017-04-13] MEDS ORDERED: UNIT DOSE COMPOUND PO ONE (16:00)
[2017-04-13] MEDS ORDERED: MIDAZOLAM HCL 5 MG/ML 1 ML VIAL ONE (16:24)
--- NOTE | 2017-04-13 16:39 | DIAGNOSTIC IMAGING REPORT ---
R HIP UNILATERAL 2 VIEWS CLINICAL HISTORY: post op COMPARISON STUDY: Right femur 04/12/2017. FINDINGS: Status post placement of an intramedullary vijaya and interlocking femoral neck pin traversing the intertrochanteric fracture. There is improved anatomic alignment. There still remains up to 1 cm of medial displacement of the lesser trochanter and 8 mm of lateral displacement of the subtrochanteric fracture. Soft tissue skin jerri are identified. The hardware appears intact. IMPRESSION: Status post internal fixation of a right femoral intertrochanteric fracture with alignment as described above. Electronically signed by: Talon Cruz M.D. 04/13/2017 4:38 PM Dictated Date/Time: 04/13/2017 4:36 PM
[2017-04-13] MEDS ORDERED: RACEPINEPHRINE 2.25% NEBU SOLN 0.5 ML VIAL INH ONE (16:45)
[2017-04-13] MEDS ORDERED: ALBUT/IPRATROP 3MG/0.5MG NEB 3 ML VIAL INH ONE (16:45)
--- NOTE | 2017-04-13 16:53 | Anesthesiology Progress Note ---
Anesthesia Post Op Note Date & Time Apr 13, 2017 at 16:53 Vital Signs Pain Intensity: 0 Vital Signs Past 12 Hours Date Time Temp Pulse Resp B/P (MAP) Pulse Ox O2 Delivery O2 Flow Rate FiO2 04/13/17 16:43 119 24 100 Nasal Cannula 2.0 04/13/17 16:30 108 22 96 Nasal Cannula 2.0 04/13/17 16:10 36.3 108 24 162/101 100 Nasal Cannula 4 04/13/17 16:00 112 24 106/92 100 Oxymask 10 04/13/17 15:50 97 22 137/87 100 Oxymask 10 04/13/17 15:40 95 17 135/83 100 Oxymask 10 04/13/17 15:30 101 21 133/75 100 Oxymask 10 04/13/17 15:20 110 22 142/72 100 Oxymask 10 04/13/17 15:11 36.4 111 22 108/96 100 Oxymask 10 04/13/17 08:35 Oxymask 4.0 04/13/17 07:17 37.0 94 18 148/83 (104) 93 Room Air Notes Mental Status: alert / awake / arousable, participated in evaluation Pt Amnestic to Procedure: Yes Nausea / Vomiting: adequately controlled Pain: adequately controlled Airway Patency, RR, SpO2: stable & adequate BP & HR: stable & adequate Hydration State: stable & adequate Anesthetic Complications: no major complications apparent Anesthetic Complications: see anesthesia note for upgrade to PCU
--- NOTE | 2017-04-13 17:08 | Anesthesiology Progress Note ---
Anesthesia Progress Note Date of Service Apr 13, 2017. Progress Notes Patient is a 51 yo female s/p right IM nail for hip fracture with multiple medical problems including end stage liver disease, seizure disorder, bipolar/ borderline, insulin dependent DMII, and pancytopenia. Patient tolerated anesthesia without complications, but after extubation patient was extremely sedated. STAT ammonia was high and BG was 159. During the PACU stay, patient responded appropriately when stimulated, but remained somnolent. Patient also had inspiratory stridor that became worse when patient was aroused. Of note, patient was not tachypneic and oxygen saturation was 99 to 100 on 2 L NC while "stridulous". Patient was treated with duonebs and racemic epi with resolution of the stridor, but continues to exhibit expiratory moans. Patient reports improvement in pain since arrival. Vital signs were stable throughout PACU stay and were appropriate. Decision made to upgrade patient to telemetry overnight secondary to patient's continued somnolence and noisy breathing while in PACU. Maddison Tobias MD, PhD
[2017-04-13] MEDS: SODIUM CHLORIDE 0.9% 1000ML 1,000 ML IV SCH (17:30)
--- NOTE | 2017-04-13 18:57 | OPERATIVE REPORT ---
REVISED REPORT DATE OF OPERATION: 04/13/2017 PREOPERATIVE DIAGNOSIS: Right intertrochanteric hip fracture. POSTOPERATIVE DIAGNOSIS: Right intertrochanteric hip fracture with subtrochanteric extension. PROCEDURE: Right intertrochanteric hip fracture intramedullary nail. SURGEON: Kevin Moore MD. BRAND DEVELOPMENT MANAGER: Zuhair Soto PA-C. ANESTHESIA: General. INDICATIONS: This is a 51-year-old female who sustained intertrochanteric hip fracture. She presents for large intertrochanteric piece and displaced hip fracture. The risks and benefits have been discussed including, but not limited to, risk of infection, nerve injury, stiffness, loss of motion, failure to improve, etc. Reasonable outcomes and options of treatment were discussed. An explanation of appropriate alternatives to the procedure that may be advantageous were discussed and their risks and benefits, as well as the risks and benefits of not proceeding with treatment. I offered to answer any additional inquiries concerning the treatment involved. All the patient's questions were answered. The patient is agreeable, understanding of the treatment plan and alternatives, and wishes to proceed with the treatment plan. DESCRIPTION OF THE PROCEDURE: The patient was placed on the fracture table and reduction was performed at the fracture table. This did result in acceptable alignment of the fracture. I made an approximately 2.5 inch incision proximal to the greater trochanteric. Dissection was carried down through the skin and subcutaneous tissues. The fascia was sharply incised and I split the muscle. I identified the greater trochanter and a guidewire was placed at the greater trochanter. This was checked in multiple views of fluoroscopy and this was driven into the intramedullary canal. This was in good position. I then reamed down to the level of the lesser trochanter with the entry reamer. I then began to place a Synthes trochanteric femoral mid nail, this was fairly tight and I elected to ream. I reamed up to a [address] a 11 nail. This was fairly tight as well. I then removed this and I reamed again to a size 12.5. The nail was able to sunk but was fairly tight. As I was impacting the nail, I noted a crack in the femur in the subtrochanteric region. There did appear to be extension of the fracture. I elected to remove the nail and place a long nail. The nail was then removed and I reamed again to make sure that there was adequate room for the nail. I reamed down to the level of the knee with a 12.5 and I reamed again proximally. The nail was then placed and it did sink easily. I then made an incision for the IM hip screw and the guides were placed on the adjacent of the lateral cortex after I spread through the soft tissue. I then placed a guidewire in the center center position and this was measured at a size 100. I selected a size 95 nail and then I reamed to a 95. The nail was then impacted in place. This resulted in good solid fixation and appropriate alignment. The nail was then locked in place and I then made an incision over the lateral aspect of the distal thigh. Perfect circles were obtained with a C-arm and then I placed an interlocking screw in a standard fashion. This was confirmed to be across the nail in multiple view of fluoroscopy and this was in good position. The incisions were irrigated. The fascial layer was closed with #1 Vicryl. A 3-0 Vicryl was used on the subcutaneous tissue, jerri were used on the skin. I injected Marcaine in the local area at the conclusion of the procedure. The patient was placed in soft dressing and sent to the PACU in stable condition. Postoperative plan will be toe touch weightbearing for 6 weeks. I attest to the content of the Intraoperative Record and any orders documented therein. Any exceptions are noted below. ADDENDUM BRAND DEVELOPMENT MANAGER: Zuhair Soto PA-C who was necessary for prepping, draping, set up of the fracture table, retraction, exposure and reduction. He was also necessary for closure and dressing application. CYNDI
[2017-04-13] MEDS: MIRTAZAPINE TAB 15 MG TAB PO SCH (21:07)
[2017-04-13] MEDS: DOCUSATE SODIUM/SENNA 50/8.6MG TAB PO SCH (21:11)
[2017-04-13] MEDS ORDERED: INSULIN GLARGINE SOLOSTAR 100 UNITS/ML 3 ML PEN SQ STA (22:07)
[2017-04-13] MEDS ORDERED: NURSING DECISION MEDICATION ORDER SCH (23:15)
[2017-04-14] VITALS (11 sets, daily range): BP systolic 116–164; BP diastolic 56–84; PULSE 82–101; TEMP 36.8–37.2; O2SAT 94–99; Ht 165.1 cm; Wt 94.0 kg
--- NOTE | 2017-04-14 00:54 | Progress Note ---
Progress Note Date of Service Apr 14, 2017. Progress Note patient called crisis this evening for worsening depression, denies SI/HI at this time notes "I am so depressed because of what happened. I fell and my punched a wall." Patient follows with Lisa Barrera in outpt, 1:1 ordered, psych consult
[2017-04-14] MEDS: SODIUM CHLORIDE 0.9% 1000ML 1,000 ML IV SCH ×3 (01:38→13:24)
[2017-04-14] MEDS: ENOXAPARIN 40 MG/0.4 ML SYR SQ SCH (05:05)
[2017-04-14] MEDS: LEVOTHYROXINE 75 MCG TAB PO SCH (06:32)
[2017-04-14] MEDS: OXYCODONE HCL IR 5 MG TAB (IMMEDIATE RELEASE) PO PRN (08:52)
[2017-04-14] MEDS: INSULIN ASPART 100 UNITS/ML 3 ML PEN SC SCH ×4 (08:55→22:34)
[2017-04-14] MEDS: BUMETANIDE 1 MG TAB PO SCH (08:58)
[2017-04-14] MEDS: LACTOBACILLUS ACIDOPHILUS (FLORANEX) TAB PO SCH (08:59)
[2017-04-14] MEDS: CHOLECALCIFEROL 1000 INTER.UNIT TAB PO SCH (08:59)
[2017-04-14] MEDS: LEVETIRACETAM 500 MG TAB PO SCH ×2 (09:00→21:58)
[2017-04-14] MEDS: OXCARBAZEPINE 150 MG TAB PO SCH ×2 (09:00→22:00)
[2017-04-14] MEDS: SERTRALINE HCL 50 MG TAB PO SCH (09:00)
[2017-04-14] MEDS ORDERED: INSULIN GLARGINE SC SCH (09:00)
[2017-04-14] MEDS: RIFAXIMIN TAB 550 MG TAB PO SCH ×2 (09:00→22:01)
[2017-04-14] MEDS: TOPIRAMATE 25 MG TAB PO SCH ×4 (09:01→22:02)
[2017-04-14] MEDS: PANTOprazole SOD 40 MG TAB PO SCH (09:01)
[2017-04-14] MEDS: LACTULOSE SYRUP 20 GM/30 ML UDC PO SCH ×2 (09:01→21:00)
[2017-04-14] MEDS: MAGNESIUM OXIDE 400 MG TAB PO SCH ×2 (09:02→21:59)
[2017-04-14] MEDS: MULTIVITAMIN TAB PO SCH (09:02)
[2017-04-14] MEDS: CEFDINIR 300 MG CAP PO SCH (09:02)
--- NOTE | 2017-04-14 09:46 | Orthopedic Progress Note ---
Orthopedic Progress Note Date of Service Apr 14, 2017. Subjective Post OP Day: 1 Denies: feeling well, complaints, chest pain, SOB, nausea / vomiting, light headedness, calf pain Additional Notes: Main issue is pain this AM. On suicide observation Objective calves soft nontender, N/V intact, capillary refill less than 2 sec., dressing C /D/I, A&O x3, toes mobile Date Time Temp Pulse Resp B/P (MAP) Pulse Ox O2 Delivery O2 Flow Rate FiO2 04/14/17 07:09 36.8 101 18 127/74 (91) 99 2.0 04/14/17 04:00 Nasal Cannula 2.0 04/14/17 03:02 36.9 100 21 136/78 (97) 97 Nasal Cannula 2.0 04/14/17 00:00 Nasal Cannula 2.0 04/13/17 23:56 37.6 108 22 129/111 (117) 97 Nasal Cannula 2.0 04/13/17 20:30 101 132/67 (88) 04/13/17 20:00 Nasal Cannula 2.0 04/13/17 19:18 100 Nasal Cannula 2.0 04/13/17 19:00 36.8 102 29 133/49 (77) 100 Nasal Cannula 2.0 04/13/17 17:30 36.9 109 24 98/70 (79) 100 Nasal Cannula 2.0 04/13/17 17:00 112 22 95/57 100 Oxymask 2 04/13/17 16:50 122 24 109/71 100 Oxymask 2 04/13/17 16:43 119 24 100 Nasal Cannula 2.0 04/13/17 16:40 120 24 128/83 100 Oxymask 2 04/13/17 16:30 108 22 96 Nasal Cannula 2.0 04/13/17 16:30 115 22 99/82 100 Oxymask 2 04/13/17 16:20 103 22 120/75 100 Nasal Cannula 4 04/13/17 16:10 36.3 108 24 162/101 100 Nasal Cannula 4 04/13/17 16:00 112 24 106/92 100 Oxymask 10 04/13/17 15:50 97 22 137/87 100 Oxymask 10 04/13/17 15:40 95 17 135/83 100 Oxymask 10 1/14/18 15:30 101 21 133/75 100 Oxymask 10 04/13/17 15:20 110 22 142/72 100 Oxymask 10 04/13/17 15:11 36.4 111 22 108/96 100 Oxymask 10 Laboratory Results 24 Hours: Test 04/13/17 09:45 04/13/17 14:19 Prothromb Time International Ratio 1.2 Prothrombin Time 12.4 SECONDS Hematocrit 26.0 % Hemoglobin 9.0 g/dL Assessment & Plan Assessment: POD #1, Right hip ORIF troch nail liver cirrhosis T2DM hypothyroidism seizure disorder migraines asthma parkinsonism bipolar disorder depression chronic pancytopenia GERD Myelodysplastic syndrome Plan: PT/ OT TTWB Right LE w walker DVT proph- Lovenox D/C planning- Rehab vs SNF As per Medicine/ Primary service.
--- NOTE | 2017-04-14 11:04 | Medical Student: [facility] ---
Med Student Progress Note Date of Service Apr 14, 2017. Subjective Pt evaluation today including: conversation w/ patient, physical exam, chart review, lab review, review of studies Pain: 03/09 Voiding: no voiding problems 51 y/o F with multiple medical problems s/p right hip intertochanteric fx and albert placement yesterday after mechanical fall 2 days ago. Yesterday she called the suicide hotline and complained of suicidal thoughts. Psychiatry was consulted and patient is on 1:1. After surgery she is complaining for right hip/ leg pain 03/09. She denies CP, SOB, N/V/D, abdominal pain, dysuria, fever/ chills. Review of Systems Constitutional: No fever, No chills ENT: No hearing loss Respiratory: No cough, No sputum Cardiac: No chest pain Abdomen: No pain, No nausea, No vomiting Musculoskeletal: + joint pain (right hip ) Female : No dysuria Psychiatric: + depression symptoms (suicidal thoughts "kind of") Skin: No rash Objective Vital Signs Date Time Temp Pulse Resp B/P (MAP) Pulse Ox O2 Delivery O2 Flow Rate FiO2 04/14/17 10:53 37.0 95 18 164/58 (93) 97 Room Air 04/14/17 07:09 36.8 101 18 127/74 (91) 99 2.0 04/14/17 04:00 Nasal Cannula 2.0 04/14/17 03:02 36.9 100 21 136/78 (97) 97 Nasal Cannula 2.0 04/14/17 00:00 Nasal Cannula 2.0 04/13/17 23:56 37.6 108 22 129/111 (117) 97 Nasal Cannula 2.0 04/13/17 20:30 101 132/67 (88) 04/13/17 20:00 Nasal Cannula 2.0 04/13/17 19:18 100 Nasal Cannula 2.0 04/13/17 19:00 36.8 102 29 133/49 (77) 100 Nasal Cannula 2.0 04/13/17 17:30 36.9 109 24 98/70 (79) 100 Nasal Cannula 2.0 04/13/17 17:00 112 22 95/57 100 Oxymask 2 04/13/17 16:50 122 24 109/71 100 Oxymask 2 04/13/17 16:43 119 24 100 Nasal Cannula 2.0 04/13/17 16:40 120 24 128/83 100 Oxymask 2 04/13/17 16:30 108 22 96 Nasal Cannula 2.0 04/13/17 16:30 115 22 99/82 100 Oxymask 2 04/13/17 16:20 103 22 120/75 100 Nasal Cannula 4 04/13/17 16:10 36.3 108 24 162/101 100 Nasal Cannula 4 04/13/17 16:00 112 24 106/92 100 Oxymask 10 04/13/17 15:50 97 22 137/87 100 Oxymask 10 04/13/17 15:40 95 17 135/83 100 Oxymask 10 04/13/17 15:30 101 21 133/75 100 Oxymask 10 04/13/17 15:20 110 22 142/72 100 Oxymask 10 04/13/17 15:11 36.4 111 22 108/96 100 Oxymask 10 Physical Exam General Appearance: WD/WN, + pertinent finding (supine in bed with covers, talking) Eyes: bilateral eyes EOMI ENT: hearing grossly normal Respiratory/Chest: lungs clear, normal breath sounds Cardiovascular: regular rate, rhythm, no murmur Abdomen: normal bowel sounds, non tender, soft Extremities: + pertinent finding (moves toes, N/V intact <2sec cap refill, sensation intact, bandages right hip/leg from surgery) Neurologic/Psychiatric: alert, oriented x 3, + depressed affect Skin: normal color, warm/dry, no rash Laboratory Results Last 24 Hours Test 04/13/17 14:19 04/13/17 15:15 04/13/17 15:56 04/13/17 18:29 Hemoglobin 9.0 g/dL Hematocrit 26.0 % Bedside Glucose 159 mg/dl 225 mg/dl Ammonia 83.3 umol/L Test 04/14/17 06:40 Bedside Glucose 295 mg/dl Medications Current Inpatient Medications Medications (Trade) Dose Ordered Sig/Danita Route Start Time Stop Time Status Last Admin Dose Admin Acetaminophen (Tylenol Tab) 650 mg Q4H PRN PO 04/12/17 14:30 05/12/17 14:29 Al Hydrox/Mg Hydrox/Simethicone (Maalox Max Susp) 15 ml Q4H PRN PO 04/12/17 14:30 05/12/17 14:29 Magnesium Hydroxide (Milk Of Magnesia Susp) 30 ml Q6H PRN PO 04/12/17 14:30 05/12/17 14:29 Polyethylene (Miralax Powder Packet) 17 gm DAILY PRN PO 04/12/17 15:45 05/12/17 15:44 Albuterol (Ventolin Hfa Inhaler) 2 puffs Q6H PRN INH 04/12/17 14:30 05/12/17 14:29 Bumetanide (Bumex Tab) 1 mg QAM PO 04/13/17 09:00 05/13/17 08:59 04/14/17 08:58 1 MG Cefdinir (Omnicef Cap) 300 mg Q12H PO 04/12/17 21:00 04/17/17 20:59 04/14/17 09:02 300 MG Cholecalciferol (Vitamin D Tab) 5,000 inter.unit DAILY PO 04/13/17 09:00 05/13/17 08:59 04/14/17 08:59 5,000 INTER.UNIT Lactulose (Chronulac Syrup) 20 gm BID PO 04/12/17 21:00 05/12/17 20:59 04/14/17 09:01 20 GM Levothyroxine Sodium (Synthroid Tab) 75 mcg DAILYBB PO 04/13/17 06:00 05/13/17 05:59 04/14/17 06:32 75 MCG Multivitamins (Multivitamin Tab) 1 tab DAILY PO 04/13/17 09:00 05/13/17 08:59 04/14/17 09:02 1 TAB Oxcarbazepine (Trileptal Tab) 300 mg AMHS PO 04/12/17 21:00 05/12/17 20:59 04/14/17 09:00 300 MG Oxycodone HCl (Roxicodone Immediate Rel Tab) 5 mg Q8H PRN PO 04/12/17 14:30 04/26/17 14:29 04/14/17 08:52 5 MG Rifaximin (Xifaxan Tab) 550 mg BID PO 04/12/17 21:00 05/12/17 20:59 04/14/17 09:00 550 MG Rizatriptan Benzoate (Maxalt Tab) 10 mg DAILY PRN PO 04/12/17 14:30 05/12/17 14:29 04/13/17 07:57 10 MG Topiramate (Topamax Tab) 25 mg BID PO 04/12/17 21:00 05/12/17 20:59 04/14/17 09:01 25 MG Topiramate (Topamax Tab) 50 mg BID PO 04/12/17 21:00 05/12/17 20:59 04/13/17 21:10 50 MG Levetiracetam (Keppra Tab) 2,000 mg BID PO 04/12/17 21:15 05/12/17 21:14 04/14/17 09:00 2,000 MG Magnesium Oxide (Mag-Ox Tab) 400 mg BID PO 04/12/17 21:00 05/12/17 20:59 04/14/17 09:02 400 MG Mirtazapine (Remeron Tab) 45 mg HS PO 04/12/17 21:00 05/12/17 20:59 04/13/17 21:07 45 MG Lactobacillus Acidophilus (Floranex Tab) 1 tab DAILY PO 04/13/17 09:00 05/13/17 08:59 04/14/17 08:59 1 TAB Sertraline HCl (Zoloft Tab) 25 mg DAILY PO 04/13/17 09:00 05/13/17 08:59 04/14/17 09:00 25 MG Pantoprazole Sodium (Protonix Tab) 40 mg QAM PO 04/13/17 09:00 04/16/17 09:01 04/14/17 09:01 40 MG Glucose (Glucose 40% Gel) 15-30 GRAMS 15 GRAMS... UD PRN PO 04/12/17 15:30 05/12/17 15:29 Glucose (Glucose Chew Tab) 4-8 Tablets 4 Tabl... UD PRN PO 04/12/17 15:30 05/12/17 15:29 Dextrose (Dextrose 50% 50ML Syringe) 25-50ML OF 50% DW IV FOR... UD PRN IV 04/12/17 15:30 05/12/17 15:29 Glucagon (Glucagon Inj) 1 mg UD PRN SQ 04/12/17 15:30 05/12/17 15:29 Prochlorperazine Edisylate 5 mg/ Syringe 5 ml @ 5 mls/min Q6H PRN IV 04/12/17 19:00 05/12/17 18:59 04/13/17 02:41 5 MLS/MIN Heparin Sodium (Porcine) (Heparin 100 Unit/ml 5ml Flush) 5 ml PRN PRN IV 04/12/17 21:15 05/12/17 21:14 04/13/17 08:37 5 ML Enoxaparin Sodium (Lovenox Inj) 40 mg Q24H SQ 04/14/17 04:00 05/14/17 03:59 04/14/17 05:05 40 MG Sodium Chloride 1,000 ml @ 125 mls/hr Q8H IV 04/13/17 14:48 05/13/17 14:47 04/14/17 08:58 125 MLS/HR Ondansetron HCl (Zofran Inj) 4 mg Q6H PRN IV 04/13/17 15:00 05/13/17 14:59 Senna/Docusate Sodium (Senokot S Tab) 2 tab HS PO 04/13/17 21:00 05/13/17 20:59 04/13/17 21:11 2 TAB Polyethylene (Miralax Powder Packet) 17 gm Q6 PO 04/15/17 06:00 05/15/17 05:59 Bisacodyl (Dulcolax Supp) 10 mg DAILY PRN SC 04/13/17 15:00 05/13/17 14:59 Sodium Biphosphate/ Sodium Phosphate (Fleet Enema) 132 ml ONE PRN SC 04/13/17 15:00 05/13/17 14:59 Hydromorphone HCl (Dilaudid Inj) 0.5 mg Q3H PRN IV 04/13/17 15:00 04/27/17 14:59 04/13/17 21:02 0.5 MG Insulin Glargine (Lantus Vial) 40 units BID SC 04/14/17 09:00 05/12/17 20:59 04/14/17 09:06 40 UNITS Insulin Aspart (novoLOG ASPART) SLIDING SCALE G... ACHS SC 04/14/17 07:00 05/14/17 06:59 04/14/17 08:55 12 UNITS Assessment and Plan Assessment and Plan: 51 y/o F with extensive medical hx s/p right hip intertrochanteric albert placement yesterday after a mechanical fall 2 days ago complaining of pain and suicidal thoughts today 1. R intertrochanteric hip fracture s/p mechanical fall -Albert placed yesterday -PT needs to assess -Roxicodone 10mg PO q4 PRN and IV Dilaudid 1 mg q4 hrs PRN for pain management 2. Suicidal thoughts -psychiatry consulted -1:1 suicide watch 3.Liver cirrhosis. chronic pancytopenia: - Chronically elevated ammonia level- 122 on 04/13- STABLE - Lactulose 30 g BID, Rifaximin 550 mg BID -order chem for today, labs pending 4. 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 stop after 6. Hypothyroidism: Synthroid 75 mcg daily 7. Bipolar disorder, depression: Remeron 45 mg HS, Zoloft 25 mg daily 8. Seizure disorder: Continue Keppra 2000 mg BID, Trileptal 300 mg HS 9. Asthma: Continue Ventolin and Symbicort 10. h/o migraines: Maxalt 10 mg q2 hrs PRN, Topamax 75 mg BID 11. GERD: Protonix 40 mg daily 12. DVT prophylaxis: MIRYAM/SCDs -order coag studies and INR tomorrow Code Status: LEVEL I, FULL Dispo: From home, lives with her - CM consulted- will likely need rehab at discharge Continued [facility] stay due to: inadequate oral pain control, home environment unsafe for pt
[2017-04-14] MEDS: HYDROmorphone INJ 0.5 MG/0.5 ML SYR IV PRN (11:06)
[2017-04-14] MEDS ORDERED: HYDROmorphone INJ 0.5 MG/0.5 ML SYR IV PRN (12:15)
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
[2017-04-14] MEDS: RIZATRIPTAN BENZOATE 10 MG TAB PO PRN (13:25)
[2017-04-14 13:54] LABS: CREATININE 0.66 mg/dl (0.60-1.20); POTASSIUM 3.7 mmol/L (3.5-5.1)
[2017-04-14 13:55] LABS: HEMATOCRIT 17.7 % (37-47); HEMOGLOBIN 6.3 g/dL (12.0-16.0); MEAN CELL VOLUME 102.3 fL (80-100); MEAN CORPUSCULAR HEMOGLOBIN 36.4 pg (25-34); MEAN CORPUSCULAR HGB CONC 35.6 g/dl (32-36); MEAN PLATELET VOLUME 9.7 fL (7.4-10.4); PLATELET COUNT 90 K/uL (130-400); RED CELL DISTRIBUTION WIDTH SD 54.7 fL (36.4-46.3); WHITE BLOOD COUNT 5.31 K/uL (4.8-10.8)
--- NOTE | 2017-04-14 16:52 | Progress Note ---
Subjective Date of Service: Apr 14, 2017. Subjective pt is lethargic and weak, is pale and feels mildly short of breath despite this is is "pleading" with me for more pain meds Problem List Medical Problems: (1) Acute bronchitis Status: Acute (2) Acute bronchitis Status: Acute (3) Acute hepatic encephalopathy Status: Acute (4) Alkaline phosphatase elevation Status: Acute (5) Back pain Status: Acute (6) Bradycardia Status: Acute (7) Breakthrough seizure Status: Acute (8) Burn Status: Acute (9) Change in mental status Status: Acute (10) Change in mental status Status: Acute (11) Change in mental status Status: Acute (12) Change in mental status Status: Acute (13) Chronic low back pain Status: Acute (14) Closed head injury Status: Acute (15) Dehydration Status: Acute (16) Dizziness Status: Acute (17) Facial laceration Status: Acute (18) Fall Status: Acute (19) Fall Status: Acute (20) Fall Status: Acute (21) Fall Status: Acute (22) Fatigue Status: Acute (23) Hemorrhoid Status: Acute (24) Hepatic encephalopathy Status: Acute (25) Hepatic encephalopathy Status: Acute (26) Hepatic encephalopathy Status: Acute (27) Hepatic encephalopathy Status: Acute (28) Hepatic encephalopathy Status: Acute (29) Hepatic encephalopathy Status: Acute (30) Hepatic encephalopathy Status: Acute (31) Hepatic encephalopathy Status: Acute (32) Hepatic encephalopathy Status: Acute (33) Hepatic encephalopathy Status: Acute (34) Hepatic encephalopathy Status: Acute (35) Hepatic encephalopathy Status: Acute (36) Hepatic encephalopathy Status: Acute (37) Hepatic encephalopathy Status: Acute (38) Hyperammonemia Status: Acute (39) Hyperammonemia Status: Acute (40) Hyperammonemia Status: Acute (41) Hyperammonemia Status: Acute (42) Hypocalcemia Status: Acute (43) Hypocalcemia Status: Acute (44) Hypokalemia Status: Acute (45) Hypokalemia Status: Acute (46) Hypokalemia Status: Acute (47) Hypomagnesemia Status: Acute (48) Increased ammonia level Status: Acute (49) Intertrochanteric fracture of left femur Status: Acute (50) Left foot pain Status: Acute (51) Left shoulder pain Status: Acute (52) Leukopenia Status: Acute (53) Low back pain Status: Acute (54) Migraine Status: Acute (55) Nausea & vomiting Status: Acute (56) Noncompliance with medication regimen Status: Acute (57) Pain in pelvis Status: Acute (58) Pancytopenia Status: Acute (59) Persistent vomiting Status: Acute (60) Post-operative pain Status: Acute (61) Right ear pain Status: Acute (62) Right groin pain Status: Acute (63) Right hip pain Status: Acute (64) Right upper lobe pneumonia Status: Acute (65) RUQ abdominal pain Status: Acute (66) Sepsis Status: Acute (67) Vomiting Status: Acute (68) Weakness Status: Acute (69) Weakness Status: Acute (70) Weakness Status: Acute (71) Weakness Status: Acute Review of Systems Constitutional: + weakness, + fatigue Respiratory: + shortness of breath, + dyspnea on exertion Cardiac: No chest pain, No edema Abdomen: No pain, No nausea, No vomiting, No diarrhea Musculoskeletal: + joint pain, + muscle pain, + swelling Neurologic: + weakness, No memory loss, No paralysis Psychiatric: No depression symptoms, No anhedonism, No anxiety Objective Vital Signs Date Time Temp Pulse Resp B/P (MAP) Pulse Ox O2 Delivery O2 Flow Rate FiO2 04/14/17 15:14 37.2 89 22 133/84 (100) 97 Room Air 04/14/17 12:00 Room Air 04/14/17 10:53 37.0 95 18 164/58 (93) 97 Room Air 04/14/17 08:00 Room Air 04/14/17 07:09 36.8 101 18 127/74 (91) 99 2.0 04/14/17 04:00 Nasal Cannula 2.0 04/14/17 03:02 36.9 100 21 136/78 (97) 97 Nasal Cannula 2.0 04/14/17 00:00 Nasal Cannula 2.0 04/13/17 23:56 37.6 108 22 129/111 (117) 97 Nasal Cannula 2.0 04/13/17 20:30 101 132/67 (88) 04/13/17 20:00 Nasal Cannula 2.0 04/13/17 19:18 100 Nasal Cannula 2.0 04/13/17 19:00 36.8 102 29 133/49 (77) 100 Nasal Cannula 2.0 04/13/17 17:30 36.9 109 24 98/70 (79) 100 Nasal Cannula 2.0 04/13/17 17:00 112 22 95/57 100 Oxymask 2 04/13/17 16:50 122 24 109/71 100 Oxymask 2 04/13/17 16:43 119 24 100 Nasal Cannula 2.0 04/13/17 16:40 120 24 128/83 100 Oxymask 2 Physical Exam General Appearance: WD/WN, + mild distress Eyes: normal inspection, + pertinent finding (pale conjunctiva) Respiratory/Chest: chest non-tender, no respiratory distress Cardiovascular: regular rate, rhythm, no murmur Abdomen: normal bowel sounds, non tender, soft Extremities: no pedal edema, no calf tenderness Neurologic/Psychiatric: alert, oriented x 3 Laboratory Results Last 24 Hours Test 04/13/17 18:29 04/14/17 06:40 04/14/17 11:31 04/14/17 13:09 Bedside Glucose 225 mg/dl 295 mg/dl 283 mg/dl White Blood Count 5.31 K/uL Red Blood Count 1.73 M/uL Hemoglobin 6.3 g/dL Hematocrit 17.7 % Mean Corpuscular Volume 102.3 fL Mean Corpuscular Hemoglobin 36.4 pg Mean Corpuscular Hemoglobin Concent 35.6 g/dl RDW Standard Deviation 54.7 fL RDW Coefficient of Variation 15.0 % Platelet Count 90 K/uL Mean Platelet Volume 9.7 fL Sodium Level 135 mmol/L Potassium Level 3.7 mmol/L Chloride Level 104 mmol/L Carbon Dioxide Level 22 mmol/L Anion Gap 9.0 mmol/L Blood Urea Nitrogen 19 mg/dl Creatinine 0.66 mg/dl Est Creatinine Clear Calc Drug Dose 114.3 ml/min Estimated GFR () 118.5 Estimated GFR (Non- 102.3 BUN/Creatinine Ratio 28.6 Random Glucose 251 mg/dl Calcium Level 7.0 mg/dl Assessment and Plan 51 F with traumatic R femoral fracture with intertrochanteric vijaya placed 04/13. , with PMHx liver cirrhosis, T2DM, hypothyroidism, seizure disorder, migraines, asthma, parkinsonism, bipolar disorder, depression, chronic pancytopenia, and GERD, this pt has issues with opiate pain medication misuse and has had multiple falls in the hospital some resulting in significant trauma R intertrochanteric hip fracture s/p mechanical fall: ORIF 04/13, I strongly support rehab acute blood loss anemia, symptomatic, transfusion 2 u prbc 04/14 Liver cirrhosis. chronic pancytopenia: - Chronically elevated ammonia level- recheck 04/13 post op was 83 continue Lactulose 30 g BID, Rifaximin 550 mg BID T2DM- ha1c 4.8% on 12/2016: previoiusly on tojeo once a day will reduce lantus to daily as in more alignement with dose calculator and tighten ssi, since A1c was low this could have an impact on her falls Recent UTI- diagnosed in ED on 04/06: Cefdinir- completes 04/14 Hypothyroidism: clinically stableSynthroid 75 mcg daily Bipolar disorder, depression: called Help line 04/13 placed on 1:1, Psychiatry evaluation will continue Remeron 45 mg HS, Zoloft 25 mg daily. Cautioned about opiate use post discharge making another reason for rehab for med surveillance Seizure disorder: stable on Keppra 2000 mg BID, Trileptal 300 mg HS Asthma: no symptoms Ventolin and Symbicort h/o migraines: Maxalt 10 mg q2 hrs PRN, Topamax 75 mg BID GERD: Protonix 40 mg daily DVT prophylaxis: MIRYAM/SCDs; chemical anticoagulation as per surgery Code Status: LEVEL I, FULL Continued [facility] stay due to: inadequate oral pain control, home environment unsafe for pt
[2017-04-14] MEDS: HYDROmorphone INJ 1 MG/ML SYR IV PRN (17:17)
--- NOTE | 2017-04-14 18:27 | PROGRESS NOTE ---
DATE: 04/14/2017 SUBJECTIVE: Benny is seen at bedside today. She verbalizes no new complaints. She appears to be comfortable. She is awake and conversant. OBJECTIVE: Right lower extremity examination is intact to flexion and extension of the toes and the ankle. Calf is soft and nontender. She has moderate swelling in the thigh region. Dressings are dry. ASSESSMENT: Postop day #1, right intertrochanteric hip fracture intramedullary nail. PLAN: At this point in time, will continue toe touch weightbearing, to continue physical therapy. Will continue Lovenox and SCDs. Plan for rehabilitation versus sniff. Will continue to follow. I discussed with the surgical findings in detail with her today.
[2017-04-14] MEDS: DOCUSATE SODIUM/SENNA 50/8.6MG TAB PO SCH (21:00)
[2017-04-14] MEDS: MIRTAZAPINE TAB 15 MG TAB PO SCH (22:00)
[2017-04-15] VITALS (13 sets, daily range): BP systolic 108–168; BP diastolic 46–93; PULSE 72–99; TEMP 36.9–37.5; O2SAT 96–100
[2017-04-15] MEDS ORDERED: NURSING VERBAL MED ORDER ONE (00:15)
[2017-04-15 05:03] LABS: CALCIUM 6.9 mg/dl (8.5-10.1); CREATININE 0.45 mg/dl (0.60-1.20); POTASSIUM 3.5 mmol/L (3.5-5.1)
[2017-04-15 05:20] LABS: HEMATOCRIT 18.7 % (37-47); HEMOGLOBIN 6.7 g/dL (12.0-16.0); MEAN CELL VOLUME 97.9 fL (80-100); MEAN CORPUSCULAR HEMOGLOBIN 35.1 pg (25-34); MEAN CORPUSCULAR HGB CONC 35.8 g/dl (32-36); MEAN PLATELET VOLUME 10.2 fL (7.4-10.4); PLATELET COUNT 57 K/uL (130-400); RED CELL DISTRIBUTION WIDTH CV 16.9 % (11.5-14.5); RED CELL DISTRIBUTION WIDTH SD 58.9 fL (36.4-46.3); WHITE BLOOD COUNT 3.57 K/uL (4.8-10.8)
[2017-04-15] MEDS: ENOXAPARIN 40 MG/0.4 ML SYR SQ SCH (05:38)
[2017-04-15] MEDS: LEVOTHYROXINE 75 MCG TAB PO SCH (05:38)
[2017-04-15] MEDS: POLYETHYLENE (MIRALAX) 17 GM PACK PO SCH ×3 (05:39→15:20)
[2017-04-15] MEDS: OXYCODONE HCL IR 5 MG TAB (IMMEDIATE RELEASE) PO PRN ×2 (08:38→17:05)
[2017-04-15] MEDS: LACTOBACILLUS ACIDOPHILUS (FLORANEX) TAB PO SCH (08:38)
[2017-04-15] MEDS: MULTIVITAMIN TAB PO SCH (08:38)
[2017-04-15] MEDS: CHOLECALCIFEROL 1000 INTER.UNIT TAB PO SCH (08:38)
[2017-04-15] MEDS: TOPIRAMATE 25 MG TAB PO SCH ×6 (08:39→21:13)
[2017-04-15] MEDS: SERTRALINE HCL 50 MG TAB PO SCH (08:39)
[2017-04-15] MEDS: OXCARBAZEPINE 150 MG TAB PO SCH ×3 (08:40→21:13)
[2017-04-15] MEDS: RIFAXIMIN TAB 550 MG TAB PO SCH ×3 (08:40→21:13)
[2017-04-15] MEDS: PANTOprazole SOD 40 MG TAB PO SCH (08:41)
[2017-04-15] MEDS: LEVETIRACETAM 500 MG TAB PO SCH ×3 (08:41→21:13)
[2017-04-15] MEDS: BUMETANIDE 1 MG TAB PO SCH (08:41)
[2017-04-15] MEDS: LACTULOSE SYRUP 20 GM/30 ML UDC PO SCH (08:41)
[2017-04-15] MEDS: MAGNESIUM OXIDE 400 MG TAB PO SCH ×3 (08:41→21:14)
[2017-04-15] MEDS: INSULIN ASPART 100 UNITS/ML 3 ML PEN SC SCH ×4 (08:53→20:21)
[2017-04-15] MEDS: INSULIN GLARGINE SC SCH (08:54)
--- NOTE | 2017-04-15 09:34 | Orthopedic Progress Note ---
Orthopedic Progress Note Date of Service Apr 15, 2017. Subjective Post OP Day: 2 Reports: feeling well, pain controlled w PO medications, Denies: complaints, chest pain, SOB, nausea / vomiting, light headedness, calf pain Objective calves soft nontender, N/V intact, dressing C/D/I, A&O x3, toes mobile sleeping when I entered room, easily awakened. Date Time Temp Pulse Resp B/P (MAP) Pulse Ox O2 Delivery O2 Flow Rate FiO2 04/15/17 08:45 37.2 94 22 160/64 98 04/15/17 08:26 37.1 94 23 146/66 99 04/15/17 07:20 36.9 99 18 149/93 (111) 100 Nasal Cannula 2.0 04/15/17 04:50 36.9 82 22 146/51 (82) 100 Nasal Cannula 2.0 04/15/17 04:00 Nasal Cannula 2.0 04/14/17 23:59 Room Air 04/14/17 22:45 37.0 82 20 116/61 (79) 96 Room Air 04/14/17 22:30 37.2 87 19 120/66 96 04/14/17 21:30 82 17 123/57 94 04/14/17 21:00 37.0 85 17 121/56 95 04/14/17 20:45 86 17 123/58 96 04/14/17 20:34 36.9 87 18 141/68 94 04/14/17 20:00 Room Air 04/14/17 19:00 37.1 87 17 120/59 (79) 96 Room Air 04/14/17 16:00 Room Air 04/14/17 15:14 37.2 89 22 133/84 (100) 97 Room Air 04/14/17 12:00 Room Air 04/14/17 10:53 37.0 95 18 164/58 (93) 97 Room Air Laboratory Results 24 Hours: Test 04/14/17 13:09 04/15/17 04:19 Hematocrit 17.7 % 18.7 % Hemoglobin 6.3 g/dL 6.7 g/dL Assessment & Plan Assessment: POD #2 s/p Right hip ORIF troch nail liver cirrhosis T2DM hypothyroidism seizure disorder migraines asthma parkinsonism bipolar disorder depression chronic pancytopenia GERD Myelodysplastic syndrome Plan: PT/ OT TTWB Right LE w walker DVT proph- Lovenox D/C planning- Rehab vs SNF As per Medicine/ Primary service.
--- NOTE | 2017-04-15 09:53 | Medical Student: [facility] ---
Med Student Progress Note Date of Service Apr 15, 2017. Subjective Pt evaluation today including: conversation w/ patient, physical exam, chart review, lab review Pain: 10/10 PO Intake: good Voiding: liu catheter in place 51 y/o continues to complain of pain post right hip surgery. She had one bowel movement today. 4 episodes of mild diarrhea yesterday. She continues to feel cold and lightheaded. Denies CP, SOB, heart palpitations, cough, abdominal pain, N/V/D, fever/chills today. Review of Systems Constitutional: No fever, No chills Respiratory: No cough, No shortness of breath Cardiac: No chest pain Abdomen: No pain, No nausea, No vomiting, No diarrhea, No constipation Musculoskeletal: + problem reported (pain right hip ) Female : No problem reported Skin: No rash Objective Vital Signs Date Time Temp Pulse Resp B/P (MAP) Pulse Ox O2 Delivery O2 Flow Rate FiO2 04/15/17 08:45 37.2 94 22 160/64 98 04/15/17 08:26 37.1 94 23 146/66 99 04/15/17 07:20 36.9 99 18 149/93 (111) 100 Nasal Cannula 2.0 04/15/17 04:50 36.9 82 22 146/51 (82) 100 Nasal Cannula 2.0 04/15/17 04:00 Nasal Cannula 2.0 04/14/17 23:59 Room Air 04/14/17 22:45 37.0 82 20 116/61 (79) 96 Room Air 04/14/17 22:30 37.2 87 19 120/66 96 04/14/17 21:30 82 17 123/57 94 04/14/17 21:00 37.0 85 17 121/56 95 04/14/17 20:45 86 17 123/58 96 04/14/17 20:34 36.9 87 18 141/68 94 04/14/17 20:00 Room Air 04/14/17 19:00 37.1 87 17 120/59 (79) 96 Room Air 04/14/17 16:00 Room Air 04/14/17 15:14 37.2 89 22 133/84 (100) 97 Room Air 04/14/17 12:00 Room Air 04/14/17 10:53 37.0 95 18 164/58 (93) 97 Room Air Physical Exam General Appearance: WD/WN, no apparent distress Eyes: bilateral eyes EOMI ENT: hearing grossly normal Respiratory/Chest: lungs clear, normal breath sounds Cardiovascular: regular rate, rhythm, no murmur Abdomen: normal bowel sounds, non tender, soft Extremities: + pertinent finding (edema right upper extremity from hip to knee increased today, warm, distal pulses intact, sensation to right foot intact, able to move toes, no leakage from bandage sites, no surrounding erythema) Skin: normal color, warm/dry, no rash Laboratory Results Last 24 Hours Test 04/14/17 11:31 04/14/17 13:09 04/14/17 16:17 04/14/17 20:28 Bedside Glucose 283 mg/dl 295 mg/dl 219 mg/dl White Blood Count 5.31 K/uL Red Blood Count 1.73 M/uL Hemoglobin 6.3 g/dL Hematocrit 17.7 % Mean Corpuscular Volume 102.3 fL Mean Corpuscular Hemoglobin 36.4 pg Mean Corpuscular Hemoglobin Concent 35.6 g/dl RDW Standard Deviation 54.7 fL RDW Coefficient of Variation 15.0 % Platelet Count 90 K/uL Mean Platelet Volume 9.7 fL Sodium Level 135 mmol/L Potassium Level 3.7 mmol/L Chloride Level 104 mmol/L Carbon Dioxide Level 22 mmol/L Anion Gap 9.0 mmol/L Blood Urea Nitrogen 19 mg/dl Creatinine 0.66 mg/dl Est Creatinine Clear Calc Drug Dose 114.3 ml/min Estimated GFR () 118.5 Estimated GFR (Non- 102.3 BUN/Creatinine Ratio 28.6 Random Glucose 251 mg/dl Calcium Level 7.0 mg/dl Test 04/15/17 04:19 White Blood Count 3.57 K/uL Red Blood Count 1.91 M/uL Hemoglobin 6.7 g/dL Hematocrit 18.7 % Mean Corpuscular Volume 97.9 fL Mean Corpuscular Hemoglobin 35.1 pg Mean Corpuscular Hemoglobin Concent 35.8 g/dl RDW Standard Deviation 58.9 fL RDW Coefficient of Variation 16.9 % Platelet Count 57 K/uL Mean Platelet Volume 10.2 fL Platelet Estimate DECREASED Sodium Level 138 mmol/L Potassium Level 3.5 mmol/L Chloride Level 107 mmol/L Carbon Dioxide Level 23 mmol/L Anion Gap 8.0 mmol/L Blood Urea Nitrogen 15 mg/dl Creatinine 0.45 mg/dl Est Creatinine Clear Calc Drug Dose 167.6 ml/min Estimated GFR () 134.5 Estimated GFR (Non- 116.0 BUN/Creatinine Ratio 32.8 Random Glucose 187 mg/dl Calcium Level 6.9 mg/dl Medications Current Inpatient Medications Medications (Trade) Dose Ordered Sig/Danita Route Start Time Stop Time Status Last Admin Dose Admin Acetaminophen (Tylenol Tab) 650 mg Q4H PRN PO 04/12/17 14:30 05/12/17 14:29 Al Hydrox/Mg Hydrox/Simethicone (Maalox Max Susp) 15 ml Q4H PRN PO 04/12/17 14:30 05/12/17 14:29 Magnesium Hydroxide (Milk Of Magnesia Susp) 30 ml Q6H PRN PO 04/12/17 14:30 05/12/17 14:29 Polyethylene (Miralax Powder Packet) 17 gm DAILY PRN PO 04/12/17 15:45 05/12/17 15:44 Albuterol (Ventolin Hfa Inhaler) 2 puffs Q6H PRN INH 04/12/17 14:30 05/12/17 14:29 Bumetanide (Bumex Tab) 1 mg QAM PO 04/13/17 09:00 05/13/17 08:59 04/15/17 08:41 1 MG Cholecalciferol (Vitamin D Tab) 5,000 inter.unit DAILY PO 04/13/17 09:00 05/13/17 08:59 04/15/17 08:38 5,000 INTER.UNIT Lactulose (Chronulac Syrup) 20 gm BID PO 04/12/17 21:00 05/12/17 20:59 04/14/17 09:01 20 GM Levothyroxine Sodium (Synthroid Tab) 75 mcg DAILYBB PO 04/13/17 06:00 05/13/17 05:59 04/15/17 05:38 75 MCG Multivitamins (Multivitamin Tab) 1 tab DAILY PO 04/13/17 09:00 05/13/17 08:59 04/15/17 08:38 1 TAB Oxcarbazepine (Trileptal Tab) 300 mg AMHS PO 04/12/17 21:00 2/12/18 20:59 04/15/17 08:40 300 MG Rifaximin (Xifaxan Tab) 550 mg BID PO 04/12/17 21:00 05/12/17 20:59 04/15/17 08:40 550 MG Rizatriptan Benzoate (Maxalt Tab) 10 mg DAILY PRN PO 04/12/17 14:30 05/12/17 14:29 04/14/17 13:25 10 MG Topiramate (Topamax Tab) 25 mg BID PO 04/12/17 21:00 05/12/17 20:59 04/15/17 08:39 25 MG Topiramate (Topamax Tab) 50 mg BID PO 04/12/17 21:00 05/12/17 20:59 04/15/17 08:40 50 MG Levetiracetam (Keppra Tab) 2,000 mg BID PO 04/12/17 21:15 05/12/17 21:14 04/15/17 08:41 2,000 MG Magnesium Oxide (Mag-Ox Tab) 400 mg BID PO 04/12/17 21:00 05/12/17 20:59 04/15/17 08:41 400 MG Mirtazapine (Remeron Tab) 45 mg HS PO 04/12/17 21:00 05/12/17 20:59 04/14/17 22:00 45 MG Lactobacillus Acidophilus (Floranex Tab) 1 tab DAILY PO 04/13/17 09:00 05/13/17 08:59 04/15/17 08:38 1 TAB Sertraline HCl (Zoloft Tab) 25 mg DAILY PO 04/13/17 09:00 05/13/17 08:59 04/15/17 08:39 25 MG Pantoprazole Sodium (Protonix Tab) 40 mg QAM PO 04/13/17 09:00 04/16/17 09:01 04/15/17 08:41 40 MG Glucose (Glucose 40% Gel) 15-30 GRAMS 15 GRAMS... UD PRN PO 04/12/17 15:30 05/12/17 15:29 Glucose (Glucose Chew Tab) 4-8 Tablets 4 Tabl... UD PRN PO 04/12/17 15:30 05/12/17 15:29 Dextrose (Dextrose 50% 50ML Syringe) 25-50ML OF 50% DW IV FOR... UD PRN IV 04/12/17 15:30 05/12/17 15:29 Glucagon (Glucagon Inj) 1 mg UD PRN SQ 04/12/17 15:30 05/12/17 15:29 Prochlorperazine Edisylate 5 mg/ Syringe 5 ml @ 5 mls/min Q6H PRN IV 04/12/17 19:00 05/12/17 18:59 04/13/17 02:41 5 MLS/MIN Heparin Sodium (Porcine) (Heparin 100 Unit/ml 5ml Flush) 5 ml PRN PRN IV 04/12/17 21:15 05/12/17 21:14 04/13/17 08:37 5 ML Enoxaparin Sodium (Lovenox Inj) 40 mg Q24H SQ 04/14/17 04:00 05/14/17 03:59 04/15/17 05:38 40 MG Sodium Chloride 1,000 ml @ 125 mls/hr Q8H IV 04/13/17 14:48 05/13/17 14:47 Future Hold 04/14/17 13:24 125 MLS/HR Ondansetron HCl (Zofran Inj) 4 mg Q6H PRN IV 04/13/17 15:00 05/13/17 14:59 Senna/Docusate Sodium (Senokot S Tab) 2 tab HS PO 04/13/17 21:00 05/13/17 20:59 04/13/17 21:11 2 TAB Polyethylene (Miralax Powder Packet) 17 gm Q6 PO 04/15/17 06:00 05/15/17 05:59 Bisacodyl (Dulcolax Supp) 10 mg DAILY PRN IA 04/13/17 15:00 05/13/17 14:59 Sodium Biphosphate/ Sodium Phosphate (Fleet Enema) 132 ml ONE PRN IA 04/13/17 15:00 05/13/17 14:59 Insulin Aspart (novoLOG ASPART) SLIDING SCALE G... ACHS SC 04/14/17 07:00 05/14/17 06:59 04/15/17 08:53 8 UNITS Hydromorphone HCl (Dilaudid Inj) 0.5 mg Q4H PRN IV 04/14/17 12:15 04/27/17 14:59 Insulin Glargine (Lantus Vial) 40 units DAILY SC 04/15/17 09:00 05/12/17 20:59 04/15/17 08:54 40 UNITS Oxycodone HCl (Roxicodone Immediate Rel Tab) 10 mg Q8H PRN PO 04/14/17 12:15 04/26/17 14:29 04/15/17 08:38 10 MG Hydromorphone HCl (Dilaudid Inj) 1 mg Q4H PRN IV 04/14/17 12:00 04/28/17 11:59 04/14/17 17:17 1 MG Assessment and Plan Assessment and Plan: 51 y/o F with extensive medical hx with acute blood loss anemia s/p right hip intertrochanteric albert placement yesterday after a mechanical fall 3 days ago 1. Acute blood loss anemia -chronic anemia, takes iron at home -Transfused yesterday for hgb 6.1 -Today hgb 6.7, transfused 1 unit -will monitor hgb after this morning's transfusion -no signs of hematoma, NV intact with 2+ distal pulses, warm leg, no signs of compartment syndrome, no drainage from incision site, no surrounding erythema, moderate swelling -consider US if no improvement in hgb today 2. R intertrochanteric hip fracture s/p mechanical fall -Albert placed yesterday -PT needs to assess -Roxicodone 10mg PO q4 PRN and IV Dilaudid 1 or 0.5 mg q4 hrs PRN for pain management 3. Suicidal thoughts -psychiatry consulted -1:1 suicide watch 4.Liver cirrhosis. chronic pancytopenia: - Chronically elevated ammonia level- 122 on 04/13- STABLE - Lactulose 30 g BID, Rifaximin 550 mg BID 5. T2DM- ha1c 4.8% on 12/2016: - Continue Lantus 40 u BID - Hold Humalog 20-30 u TID w/ meals while inpatient - BSG ACHS w/ sliding insulin scale - certified adapted physical educator consultation 6.Recent UTI- diagnosed in ED on 04/06 -Stopped cefdinir yesterday 7. Hypothyroidism: Synthroid 75 mcg daily 8. Bipolar disorder, depression: Remeron 45 mg HS, Zoloft 25 mg daily 9. Seizure disorder: Continue Keppra 2000 mg BID, Trileptal 300 mg HS 10. Asthma: Continue Ventolin and Symbicort 11. h/o migraines: Maxalt 10 mg q2 hrs PRN, Topamax 75 mg BID 12. GERD: Protonix 40 mg daily 13. DVT prophylaxis: MIRYAM/SCDs -order coag studies and INR tomorrow Code Status: LEVEL I, FULL Continued [facility] stay due to: inadequate oral pain control, home environment unsafe for pt
[2017-04-15] MEDS ORDERED: COUGH DROP (SUGAR FREE) LOZ 24 LOZ/1 BOX PO PRN (10:45)
[2017-04-15] MEDS: HYDROmorphone INJ 1 MG/ML SYR IV PRN ×2 (11:37→20:16)
--- NOTE | 2017-04-15 13:48 | Clinical Documentation Query ---
CLINICAL DOCUMENTATION QUERY Dr. SHAFFER, In your clinical opinion is this patient being managed for: ( xx ) Acute blood loss anemia ( ) Not Agree ( ) Other explanation of clinical findings (Please Explain) ( ) Unable to determine (Please Define) ( ) Need to Discuss The medical record reflects the following clinical findings, treatment, and risk factors. Clinical Indicators: 51 yo female presenting with R intertrochanteric hip fracture requiring intramedullary nailing. EBL of 300 cc. Baseline Hgb 10.0/Hct 28.6 dropping to 6.3/11.7. Treatment: 2 U PRBC, serial CBC's, tele monitoring, O2 support Risk Factors: traumatic hip fracture and surgical blood loss Please clarify and document your clinical opinion in the progress notes and discharge summary. Terms such as "probable", "suspected", "likely", "questionable", "possible", or "still to be ruled out" are acceptable. IF IN AGREEMENT, YOU MUST DOCUMENT ABOVE DIAGNOSTIC STATEMENT IN DAILY PROGRESS NOTES AND DISCHARGE SUMMARY. This document is not part of the patient's record. Thank You, Andree Young RN [phone]
[2017-04-15 15:11] LABS: HEMATOCRIT 22.1 % (37-47); HEMOGLOBIN 7.9 g/dL (12.0-16.0)
--- NOTE | 2017-04-15 16:42 | Progress Note ---
Subjective Date of Service: Apr 15, 2017. Subjective pt has significant acute blood loss anemia, she has persistent significant pain , and remains bargaining for additional opiate pain medications both dose level and frequency Problem List Medical Problems: (1) Acute bronchitis Status: Acute (2) Acute bronchitis Status: Acute (3) Acute hepatic encephalopathy Status: Acute (4) Alkaline phosphatase elevation Status: Acute (5) Back pain Status: Acute (6) Bradycardia Status: Acute (7) Breakthrough seizure Status: Acute (8) Burn Status: Acute (9) Change in mental status Status: Acute (10) Change in mental status Status: Acute (11) Change in mental status Status: Acute (12) Change in mental status Status: Acute (13) Chronic low back pain Status: Acute (14) Closed head injury Status: Acute (15) Dehydration Status: Acute (16) Dizziness Status: Acute (17) Facial laceration Status: Acute (18) Fall Status: Acute (19) Fall Status: Acute (20) Fall Status: Acute (21) Fall Status: Acute (22) Fatigue Status: Acute (23) Hemorrhoid Status: Acute (24) Hepatic encephalopathy Status: Acute (25) Hepatic encephalopathy Status: Acute (26) Hepatic encephalopathy Status: Acute (27) Hepatic encephalopathy Status: Acute (28) Hepatic encephalopathy Status: Acute (29) Hepatic encephalopathy Status: Acute (30) Hepatic encephalopathy Status: Acute (31) Hepatic encephalopathy Status: Acute (32) Hepatic encephalopathy Status: Acute (33) Hepatic encephalopathy Status: Acute (34) Hepatic encephalopathy Status: Acute (35) Hepatic encephalopathy Status: Acute (36) Hepatic encephalopathy Status: Acute (37) Hepatic encephalopathy Status: Acute (38) Hyperammonemia Status: Acute (39) Hyperammonemia Status: Acute (40) Hyperammonemia Status: Acute (41) Hyperammonemia Status: Acute (42) Hypocalcemia Status: Acute (43) Hypocalcemia Status: Acute (44) Hypokalemia Status: Acute (45) Hypokalemia Status: Acute (46) Hypokalemia Status: Acute (47) Hypomagnesemia Status: Acute (48) Increased ammonia level Status: Acute (49) Intertrochanteric fracture of left femur Status: Acute (50) Left foot pain Status: Acute (51) Left shoulder pain Status: Acute (52) Leukopenia Status: Acute (53) Low back pain Status: Acute (54) Migraine Status: Acute (55) Nausea & vomiting Status: Acute (56) Noncompliance with medication regimen Status: Acute (57) Pain in pelvis Status: Acute (58) Pancytopenia Status: Acute (59) Persistent vomiting Status: Acute (60) Post-operative pain Status: Acute (61) Right ear pain Status: Acute (62) Right groin pain Status: Acute (63) Right hip pain Status: Acute (64) Right upper lobe pneumonia Status: Acute (65) RUQ abdominal pain Status: Acute (66) Sepsis Status: Acute (67) Vomiting Status: Acute (68) Weakness Status: Acute (69) Weakness Status: Acute (70) Weakness Status: Acute (71) Weakness Status: Acute Review of Systems Constitutional: + weakness, + fatigue, No fever, No chills Respiratory: No cough, No shortness of breath Cardiac: + edema, No chest pain Abdomen: + diarrhea, No pain, No nausea, No vomiting Musculoskeletal: + joint pain, + muscle pain, + swelling Female : No dysuria, No urinary frequency Objective Vital Signs Date Time Temp Pulse Resp B/P (MAP) Pulse Ox O2 Delivery O2 Flow Rate FiO2 04/15/17 16:00 Room Air 04/15/17 15:46 37.1 90 134/69 (90) 96 Nasal Cannula 2.0 04/15/17 12:00 Room Air 04/15/17 10:56 37.2 94 23 168/70 99 04/15/17 09:45 37.0 93 20 159/69 99 2.0 04/15/17 09:15 37.0 90 18 158/76 99 2.0 04/15/17 08:45 37.2 94 22 160/64 98 04/15/17 08:26 37.1 94 23 146/66 99 04/15/17 08:00 Room Air 04/15/17 07:20 36.9 99 18 149/93 (111) 100 Nasal Cannula 2.0 04/15/17 04:50 36.9 82 22 146/51 (82) 100 Nasal Cannula 2.0 04/15/17 04:00 Nasal Cannula 2.0 04/14/17 23:59 Room Air 04/14/17 22:45 37.0 82 20 116/61 (79) 96 Room Air 04/14/17 22:30 37.2 87 19 120/66 96 04/14/17 21:30 82 17 123/57 94 04/14/17 21:00 37.0 85 17 121/56 95 04/14/17 20:45 86 17 123/58 96 04/14/17 20:34 36.9 87 18 141/68 94 04/14/17 20:00 Room Air 04/14/17 19:00 37.1 87 17 120/59 (79) 96 Room Air Physical Exam General Appearance: WD/WN, + mild distress Eyes: normal inspection, sclerae normal Respiratory/Chest: chest non-tender, lungs clear, normal breath sounds Cardiovascular: regular rate, rhythm, no murmur Abdomen: normal bowel sounds, non tender, soft Extremities: + calf tenderness (due to swelling), + pertinent finding (very swollen right leg, consistent with large hematoma ) Neurologic/Psychiatric: alert, oriented x 3, + pertinent finding (distal sensation intact as well as capillary refill) Laboratory Results Last 24 Hours Test 04/14/17 20:28 04/15/17 04:19 04/15/17 06:42 04/15/17 11:32 Bedside Glucose 219 mg/dl 215 mg/dl 215 mg/dl White Blood Count 3.57 K/uL Red Blood Count 1.91 M/uL Hemoglobin 6.7 g/dL Hematocrit 18.7 % Mean Corpuscular Volume 97.9 fL Mean Corpuscular Hemoglobin 35.1 pg Mean Corpuscular Hemoglobin Concent 35.8 g/dl RDW Standard Deviation 58.9 fL RDW Coefficient of Variation 16.9 % Platelet Count 57 K/uL Mean Platelet Volume 10.2 fL Platelet Estimate DECREASED Sodium Level 138 mmol/L Potassium Level 3.5 mmol/L Chloride Level 107 mmol/L Carbon Dioxide Level 23 mmol/L Anion Gap 8.0 mmol/L Blood Urea Nitrogen 15 mg/dl Creatinine 0.45 mg/dl Est Creatinine Clear Calc Drug Dose 167.6 ml/min Estimated GFR () 134.5 Estimated GFR (Non- 116.0 BUN/Creatinine Ratio 32.8 Random Glucose 187 mg/dl Calcium Level 6.9 mg/dl Test 04/15/17 14:52 04/15/17 16:12 Hemoglobin 7.9 g/dL Hematocrit 22.1 % Bedside Glucose 225 mg/dl Assessment and Plan 51 F with traumatic R femoral fracture with intertrochanteric vijaya placed 04/13. , with PMHx liver cirrhosis, T2DM, hypothyroidism, seizure disorder, migraines, asthma, parkinsonism, bipolar disorder, depression, chronic pancytopenia, and GERD, this pt has issues with opiate pain medication misuse and has had multiple falls in the hospital some resulting in significant trauma R intertrochanteric hip fracture s/p mechanical fall: ORIF 04/13, significant swelling, from hematoma acute blood loss anemia, symptomatic, transfusion 3 u prbc 04/14-, will cautiously continue sc dvt prevention as swelling increases risk Liver cirrhosis. chronic pancytopenia: now complaining of diarrhea will reduce Lactulose 15 g BID, Rifaximin 550 mg BID T2DM- ha1c 4.8% on 12/2016: despite good A1c she continues to remain in poor control post op continue lantus 40 u, and tighten ssi, since A1c was low this could have an impact on her falls Recent UTI- diagnosed in ED on 04/06: Cefdinir- completes 04/14 Hypothyroidism: Synthroid 75 mcg daily Bipolar disorder, depression: called Help line 04/13 placed on 1:1, Psychiatry evaluation will continue Remeron 45 mg HS, Zoloft 25 mg daily. Continued Cautioned about opiate use post discharge making another reason for rehab for med surveillance Seizure disorder: stable on Keppra 2000 mg BID, Trileptal 300 mg HS Asthma: no symptoms Ventolin and Symbicort h/o migraines: Maxalt 10 mg q2 hrs PRN, Topamax 75 mg BID GERD: Protonix 40 mg daily DVT prophylaxis: MIRYAM/SCDs; chemical anticoagulation as per surgery Code Status: LEVEL I, FULL Continued [facility] stay due to: inadequate oral pain control, home environment unsafe for pt
[2017-04-15] MEDS: HEPARIN SOD 5000 UNIT/0.5 ML CARP SQ SCH (20:15)
[2017-04-15] MEDS: LACTULOSE SYRUP 10 GM/15 ML BTL 473 ML PO SCH (20:16)
[2017-04-15] MEDS: DOCUSATE SODIUM/SENNA 50/8.6MG TAB PO SCH (20:17)
[2017-04-15] MEDS: MIRTAZAPINE TAB 15 MG TAB PO SCH ×2 (20:17→21:14)
[2017-04-16] VITALS (9 sets, daily range): BP systolic 112–147; BP diastolic 55–69; PULSE 80–92; TEMP 36.8–37.4; O2SAT 93–98
[2017-04-16] MEDS: HYDROmorphone INJ 1 MG/ML SYR IV PRN ×5 (01:32→21:29)
[2017-04-16] MEDS: POLYETHYLENE (MIRALAX) 17 GM PACK PO SCH ×3 (04:27→12:00)
[2017-04-16] MEDS: LEVOTHYROXINE 75 MCG TAB PO SCH (04:33)
[2017-04-16] MEDS: OXYCODONE HCL IR 5 MG TAB (IMMEDIATE RELEASE) PO PRN ×3 (04:34→23:53)
[2017-04-16 05:06] LABS: HEMATOCRIT 24.6 % (37-47); HEMOGLOBIN 8.7 g/dL (12.0-16.0); MEAN CELL VOLUME 96.1 fL (80-100); MEAN CORPUSCULAR HGB CONC 35.4 g/dl (32-36); NUCLEATED RED BLOOD CELL ABS 0.03 K/uL (0-0); RED CELL DISTRIBUTION WIDTH SD 57.3 fL (36.4-46.3); WHITE BLOOD COUNT 3.99 K/uL (4.8-10.8)
[2017-04-16 05:31] LABS: CALCIUM 6.9 mg/dl (8.5-10.1); CREATININE 0.6 mg/dl (0.60-1.20); INR 1.1 (0.9-1.1); POTASSIUM 3.5 mmol/L (3.5-5.1); PTT PATIENT 28.7 SECONDS (21.0-31.0)
[2017-04-16 05:41] LABS: MEAN PLATELET VOLUME 10.3 fL (7.4-10.4); PLATELET COUNT 60 K/uL (130-400)
[2017-04-16] MEDS: TOPIRAMATE 25 MG TAB PO SCH ×4 (08:05→21:30)
[2017-04-16] MEDS: LEVETIRACETAM 500 MG TAB PO SCH ×2 (08:06→21:24)
[2017-04-16] MEDS: LACTULOSE SYRUP 10 GM/15 ML BTL 473 ML PO SCH ×2 (08:07→21:30)
[2017-04-16] MEDS: OXCARBAZEPINE 150 MG TAB PO SCH ×2 (08:08→21:25)
[2017-04-16] MEDS: RIFAXIMIN TAB 550 MG TAB PO SCH ×2 (08:09→21:24)
[2017-04-16] MEDS: PANTOprazole SOD 40 MG TAB PO SCH (08:10)
[2017-04-16] MEDS: SERTRALINE HCL 50 MG TAB PO SCH (08:10)
[2017-04-16] MEDS: MAGNESIUM OXIDE 400 MG TAB PO SCH ×2 (08:11→21:30)
[2017-04-16] MEDS: INSULIN ASPART 100 UNITS/ML 3 ML PEN SC SCH ×4 (08:19→21:29)
[2017-04-16] MEDS: INSULIN GLARGINE SC SCH (08:20)
[2017-04-16] MEDS: LACTOBACILLUS ACIDOPHILUS (FLORANEX) TAB PO SCH (08:34)
[2017-04-16] MEDS: BUMETANIDE 1 MG TAB PO SCH (08:34)
[2017-04-16] MEDS: CHOLECALCIFEROL 1000 INTER.UNIT TAB PO SCH (08:35)
[2017-04-16] MEDS: HEPARIN SOD 5000 UNIT/0.5 ML CARP SQ SCH ×2 (08:35→21:25)
[2017-04-16] MEDS: MULTIVITAMIN TAB PO SCH (08:35)
[2017-04-16] MEDS ORDERED: SODIUM CHLORIDE 0.65% NA SOLN 45 ML (OCEAN) PRN (09:00)
[2017-04-16] MEDS: RIZATRIPTAN BENZOATE 10 MG TAB PO PRN (09:36)
[2017-04-16] MEDS: PROCHLORPERAZINE INJ 5 MG in SYRINGE 4 ML IV PRN (09:38)
--- NOTE | 2017-04-16 09:52 | Medical Student: [facility] ---
Med Student Progress Note Date of Service Apr 16, 2017. Subjective Pt evaluation today including: conversation w/ patient, physical exam, chart review, lab review Pain: 10/10 PO Intake: normal Voiding: liu catheter in place Pt continues to complain of pain 10/10 in hip s/p surgery after fracture. She c/o diarrhea/loose stools and refused her lactulose last night. She is using an anal cream she brought from home to help with the discomfort caused by the loose stools. She had a nose bleed last night and is requesting saline nasal spray this morning. She states she has a hx of gastroparesis and is followed by Dr. Johns ( [facility]) and wants to talk with him. Review of Systems Constitutional: No fever, No chills ENT: No hearing loss Respiratory: No cough, No wheezing, No shortness of breath Cardiac: No chest pain Abdomen: + diarrhea, No pain, No nausea, No vomiting, No constipation Female : No problem reported Neurologic: No problem reported Psychiatric: + depression symptoms, + problem reported (denies SI/HI) Skin: No rash, No itch Objective Vital Signs Date Time Temp Pulse Resp B/P (MAP) Pulse Ox O2 Delivery O2 Flow Rate FiO2 04/16/17 07:57 37.1 92 18 147/62 (90) 94 Room Air 04/16/17 04:23 36.8 84 17 126/55 (78) 93 Room Air 04/16/17 04:00 Room Air 04/15/17 23:59 Room Air 04/15/17 23:36 36.9 79 19 149/59 (89) 97 Room Air 04/15/17 20:00 37.5 72 19 108/46 97 04/15/17 20:00 Room Air 04/15/17 19:00 37.2 80 20 109/49 97 04/15/17 18:46 37.3 82 19 111/46 97 04/15/17 18:16 37.3 84 21 122/56 96 04/15/17 16:00 Room Air 04/15/17 15:46 37.1 90 134/69 (90) 96 Nasal Cannula 2.0 04/15/17 12:00 Room Air 04/15/17 10:56 37.2 94 23 168/70 99 04/15/17 09:45 37.0 93 20 159/69 99 2.0 Physical Exam General Appearance: WD/WN, no apparent distress Eyes: bilateral eyes EOMI ENT: hearing grossly normal Respiratory/Chest: lungs clear, normal breath sounds Cardiovascular: regular rate, rhythm Abdomen: normal bowel sounds, non tender, soft Extremities: + swelling, + pertinent finding (cap refill <2 sec, appears less swollen than yesterday, less warm, no erythema, no drainanage from jerri ) Neurologic/Psychiatric: alert, oriented x 3 Skin: normal color, warm/dry, no rash Laboratory Results Last 24 Hours Test 04/15/17 11:32 04/15/17 14:52 04/15/17 16:12 04/15/17 20:06 Bedside Glucose 215 mg/dl 225 mg/dl 210 mg/dl Hemoglobin 7.9 g/dL Hematocrit 22.1 % Test 04/16/17 04:30 04/16/17 07:01 White Blood Count 3.99 K/uL Red Blood Count 2.56 M/uL Hemoglobin 8.7 g/dL Hematocrit 24.6 % Mean Corpuscular Volume 96.1 fL Mean Corpuscular Hemoglobin 34.0 pg Mean Corpuscular Hemoglobin Concent 35.4 g/dl RDW Standard Deviation 57.3 fL RDW Coefficient of Variation 17.0 % Platelet Count 60 K/uL Mean Platelet Volume 10.3 fL Nucleated RBC Absolute Count (auto) 0.03 K/uL Nucleated Red Blood Cells % 0.8 % Platelet Estimate DECREASED Prothrombin Time 11.8 SECONDS Prothromb Time International Ratio 1.1 Activated Partial Thromboplast Time 28.7 SECONDS Partial Thromboplastin Ratio 1.1 Sodium Level 138 mmol/L Potassium Level 3.5 mmol/L Chloride Level 107 mmol/L Carbon Dioxide Level 26 mmol/L Anion Gap 5.0 mmol/L Blood Urea Nitrogen 14 mg/dl Creatinine 0.60 mg/dl Est Creatinine Clear Calc Drug Dose 125.7 ml/min Estimated GFR () 122.3 Estimated GFR (Non- 105.5 BUN/Creatinine Ratio 23.1 Random Glucose 170 mg/dl Calcium Level 6.9 mg/dl Bedside Glucose 192 mg/dl Medications Current Inpatient Medications Medications (Trade) Dose Ordered Sig/Danita Route Start Time Stop Time Status Last Admin Dose Admin Acetaminophen (Tylenol Tab) 650 mg Q4H PRN PO 04/12/17 14:30 05/12/17 14:29 Al Hydrox/Mg Hydrox/Simethicone (Maalox Max Susp) 15 ml Q4H PRN PO 04/12/17 14:30 05/12/17 14:29 Magnesium Hydroxide (Milk Of Magnesia Susp) 30 ml Q6H PRN PO 04/12/17 14:30 05/12/17 14:29 Polyethylene (Miralax Powder Packet) 17 gm DAILY PRN PO 04/12/17 15:45 05/12/17 15:44 Albuterol (Ventolin Hfa Inhaler) 2 puffs Q6H PRN INH 04/12/17 14:30 05/12/17 14:29 Bumetanide (Bumex Tab) 1 mg QAM PO 04/13/17 09:00 05/13/17 08:59 04/16/17 08:34 1 MG Cholecalciferol (Vitamin D Tab) 5,000 inter.unit DAILY PO 04/13/17 09:00 05/13/17 08:59 04/15/17 08:38 5,000 INTER.UNIT Levothyroxine Sodium (Synthroid Tab) 75 mcg DAILYBB PO 04/13/17 06:00 05/13/17 05:59 04/16/17 04:33 75 MCG Multivitamins (Multivitamin Tab) 1 tab DAILY PO 04/13/17 09:00 05/13/17 08:59 04/15/17 08:38 1 TAB Oxcarbazepine (Trileptal Tab) 300 mg AMHS PO 04/12/17 21:00 05/12/17 20:59 04/16/17 08:08 300 MG Rifaximin (Xifaxan Tab) 550 mg BID PO 04/12/17 21:00 05/12/17 20:59 04/16/17 08:09 550 MG Rizatriptan Benzoate (Maxalt Tab) 10 mg DAILY PRN PO 04/12/17 14:30 05/12/17 14:29 04/16/17 09:36 10 MG Topiramate (Topamax Tab) 25 mg BID PO 04/12/17 21:00 05/12/17 20:59 04/15/17 21:12 25 MG Topiramate (Topamax Tab) 50 mg BID PO 04/12/17 21:00 05/12/17 20:59 04/15/17 21:13 50 MG Levetiracetam (Keppra Tab) 2,000 mg BID PO 04/12/17 21:15 05/12/17 21:14 04/16/17 08:06 2,000 MG Magnesium Oxide (Mag-Ox Tab) 400 mg BID PO 04/12/17 21:00 05/12/17 20:59 04/15/17 21:14 400 MG Mirtazapine (Remeron Tab) 45 mg HS PO 04/12/17 21:00 05/12/17 20:59 04/15/17 21:14 45 MG Lactobacillus Acidophilus (Floranex Tab) 1 tab DAILY PO 04/13/17 09:00 05/13/17 08:59 04/16/17 08:34 1 TAB Sertraline HCl (Zoloft Tab) 25 mg DAILY PO 04/13/17 09:00 05/13/17 08:59 04/16/17 08:10 25 MG Glucose (Glucose 40% Gel) 15-30 GRAMS 15 GRAMS... UD PRN PO 04/12/17 15:30 05/12/17 15:29 Glucose (Glucose Chew Tab) 4-8 Tablets 4 Tabl... UD PRN PO 04/12/17 15:30 05/12/17 15:29 Dextrose (Dextrose 50% 50ML Syringe) 25-50ML OF 50% DW IV FOR... UD PRN IV 04/12/17 15:30 05/12/17 15:29 Glucagon (Glucagon Inj) 1 mg UD PRN SQ 04/12/17 15:30 05/12/17 15:29 Prochlorperazine Edisylate 5 mg/ Syringe 5 ml @ 5 mls/min Q6H PRN IV 04/12/17 19:00 05/12/17 18:59 04/16/17 09:38 5 MLS/MIN Heparin Sodium (Porcine) (Heparin 100 Unit/ml 5ml Flush) 5 ml PRN PRN IV 04/12/17 21:15 05/12/17 21:14 04/13/17 08:37 5 ML Sodium Chloride 1,000 ml @ 125 mls/hr Q8H IV 04/13/17 14:48 05/13/17 14:47 Future Hold 04/14/17 13:24 125 MLS/HR Ondansetron HCl (Zofran Inj) 4 mg Q6H PRN IV 04/13/17 15:00 05/13/17 14:59 Senna/Docusate Sodium (Senokot S Tab) 2 tab HS PO 04/13/17 21:00 05/13/17 20:59 04/13/17 21:11 2 TAB Polyethylene (Miralax Powder Packet) 17 gm Q6 PO 04/15/17 06:00 05/15/17 05:59 Bisacodyl (Dulcolax Supp) 10 mg DAILY PRN W[place] 04/13/17 15:00 05/13/17 14:59 Sodium Biphosphate/ Sodium Phosphate (Fleet Enema) 132 ml ONE PRN W[place] 04/13/17 15:00 05/13/17 14:59 Insulin Aspart (novoLOG ASPART) SLIDING SCALE G... ACHS SC 04/14/17 07:00 05/14/17 06:59 04/16/17 08:19 6 UNITS Hydromorphone HCl (Dilaudid Inj) 0.5 mg Q4H PRN IV 04/14/17 12:15 04/27/17 14:59 Insulin Glargine (Lantus Vial) 40 units DAILY SC 04/15/17 09:00 05/12/17 20:59 04/16/17 08:20 40 UNITS Oxycodone HCl (Roxicodone Immediate Rel Tab) 10 mg Q8H PRN PO 04/14/17 12:15 04/26/17 14:29 04/16/17 04:34 10 MG Hydromorphone HCl (Dilaudid Inj) 1 mg Q4H PRN IV 04/14/17 12:00 04/28/17 11:59 04/16/17 06:12 1 MG Lactulose (Chronulac Syrup) 15 gm BID PO 04/15/17 21:00 05/12/17 20:59 04/16/17 08:07 15 GM Menthol (Nice Satnam) 1 satnam Q1H PRN PO 04/15/17 10:45 05/15/17 10:44 04/15/17 20:37 1 SATNAM Heparin Sodium (Porcine) (Heparin Sq 5000 Unit/0.5ml) 5,000 unit Q12 SQ 04/15/17 21:00 05/15/17 20:59 04/15/17 20:15 5,000 UNIT Sodium Chloride ([place] Nasal [place]) 2 sprays Q1H PRN NA 04/16/17 09:00 05/16/17 08:59 Assessment and Plan Assessment and Plan: 51 y/o F with extensive medical hx with acute blood loss anemia s/p right hip intertrochanteric albert placement yesterday after a mechanical fall 3 days ago 1. Acute blood loss anemia -chronic anemia, takes iron at home -Transfused 2 days ago for hgb 6.1 -After 3 units, hgb is 8.7 today and patient feels better 2. R intertrochanteric hip fracture s/p mechanical fall -Albert placed -PT continues to follow patient -Roxicodone 10mg PO q4 PRN and IV Dilaudid 1 or 0.5 mg q4 hrs PRN for pain management 3. Suicidal thoughts -psychiatry consulted -no longer 1:1 4.Liver cirrhosis. chronic pancytopenia: - Chronically elevated ammonia level- 122 on 04/13- STABLE - Lactulose 30 g BID, Rifaximin 550 mg BID -Pt refused lactulose yesterday but still has loose stools today 5. T2DM- ha1c 4.8% on 12/2016: - Lantus 20 BID instead of 40 once a day - Hold Humalog 20-30 u TID w/ meals while inpatient - BSG ACHS w/ sliding insulin scale - nutrition educator consulted 6.Recent UTI- diagnosed in ED on 04/06 -Stopped cefdinir 04/14 7. Hypothyroidism: Synthroid 75 mcg daily 8. Bipolar disorder, depression: Remeron 45 mg HS, Zoloft 25 mg daily 9. Seizure disorder: Continue Keppra 2000 mg BID, Trileptal 300 mg HS 10. Asthma: Continue Ventolin and Symbicort 11. h/o migraines: Maxalt 10 mg q2 hrs PRN, Topamax 75 mg BID 12. GERD: Protonix 40 mg daily 13. DVT prophylaxis: -MIRYAM/SCDs -restarted on hep 5000 14. Disposition -move to med/surg floor today CODE STATUS: FULL RESUSCITATION Continued [facility] stay due to: inadequate oral pain control, home environment unsafe for pt
--- NOTE | 2017-04-16 09:53 | Orthopedic Progress Note ---
Orthopedic Progress Note Date of Service Apr 16, 2017. Subjective Post OP Day: 3 Reports: pain controlled w PO medications, Denies: chest pain, SOB, nausea / vomiting, light headedness, calf pain Objective calves soft nontender, N/V intact, incision C/D/I, A&O x3, toes mobile skin edges well approximated with jerri. no drainage noted. Date Time Temp Pulse Resp B/P (MAP) Pulse Ox O2 Delivery O2 Flow Rate FiO2 04/16/17 07:57 37.1 92 18 147/62 (90) 94 Room Air 04/16/17 04:23 36.8 84 17 126/55 (78) 93 Room Air 04/16/17 04:00 Room Air 04/15/17 23:59 Room Air 04/15/17 23:36 36.9 79 19 149/59 (89) 97 Room Air 04/15/17 20:00 37.5 72 19 108/46 97 04/15/17 20:00 Room Air 04/15/17 19:00 37.2 80 20 109/49 97 04/15/17 18:46 37.3 82 19 111/46 97 04/15/17 18:16 37.3 84 21 122/56 96 04/15/17 16:00 Room Air 04/15/17 15:46 37.1 90 134/69 (90) 96 Nasal Cannula 2.0 04/15/17 12:00 Room Air 04/15/17 10:56 37.2 94 23 168/70 99 Laboratory Results 24 Hours: Test 04/15/17 14:52 04/16/17 04:30 Hematocrit 22.1 % 24.6 % Hemoglobin 7.9 g/dL 8.7 g/dL Prothromb Time International Ratio 1.1 Prothrombin Time 11.8 SECONDS Assessment & Plan Assessment: POD #3 s/p Right hip ORIF troch nail liver cirrhosis T2DM hypothyroidism seizure disorder migraines asthma parkinsonism bipolar disorder depression chronic pancytopenia GERD Myelodysplastic syndrome Plan: PT/ OT TTWB Right LE w walker DVT proph- Lovenox D/C planning- Rehab vs SNF As per Medicine/ Primary service. Orthopedically stable, will sign off at this time. please feel free to contact with any questions. Upon discharge, patient to contact the office to schedule follow up with dr tian in 10-14 days from date of surgery.
--- NOTE | 2017-04-16 09:55 | Consultant Recommendations ---
Speech Language Pathologist Travel Recommendations Date of Service Apr 16, 2017. Speech Language Pathologist Travel Recommendations [facility] DISCHARGE INSTRUCTIONS: HIP FRACTURE SELF CARE INSTRUCTIONS: A. You are to ambulate with a walker or crutches for approximately 6 weeks. B. You are TOE TOUCH WEIGHT BEARING on your operative lower extremity for at least 6 weeks. C. Wear low heeled shoes with non-slip soles D. Be sure that your floors are free of things that could trip you throw rugs, electrical cords, and small objects. Avoid wet and waxed floors, especially with crutches/walker/cane. E. Try to walk several times a day with rest periods between. F. You may shower 48 hours after surgery and get the incision area wet, but DO NOT soak or submerge incision area in water. (No baths, swimming pools, hot tubs ) G. You may have a large, band-aid like dressing over your incision (Aquacel). This will remain on your incision for 7 days, and then can be removed. You CAN shower with this on. If incision is leaking through the dressing, please call the office . H. Do NOT apply soap or any ointment/lotions directly over incision. I. You may use ice as needed to operative site. SPECIAL CARE INSTRUCTIONS: VERY IMPORTANT TO READ AND REVIEW A. You may be at risk for phlebitis or blood clots. a. Wear surgical stockings (MIRYAM hose) for 2 weeks after surgery to improve circulation and reduce swelling. B. There are a few signs you need to watch for after you are home. Call [facility] at [phone] if you experience any of the following: a. If you have a temperature of 101 degrees or higher. b. Sudden increase in pain in your hip not relieved by rest or pain medication. c. Any fluid or drainage from the incision; redness of the incision. d. Shortness of breath or chest pain. B. Please call [facility] at [phone] if you have any questions or concerns about your operation or recovery. C. Call your physician if: a. Temperature is greater than 101 degrees (F). b. Pain is not relieved by prescribed pain medications. c. Increase drainage or redness from incision. d. Unanswered questions or concerns. D. Pain Medication: a. You will be prescribed pain medication upon discharge that should last till your first post-operative appointment. b. If you experience nausea and/or skin rash, discontinue this medication and contact our office for an alternative medication. c. Caution- narcotic pain medication can cause constipation. FOLLOW UP VISIT: Please call [facility] and Dr Moore at [phone] to schedule a follow up appointment 10-14 days from the date of your surgery date.
[2017-04-16] MEDS ORDERED: RXC5 PO (11:28)
[2017-04-16] MEDS ORDERED: INSDGIPEN SC (11:28)
[2017-04-16] MEDS ORDERED: SALI0.6510 (11:28)
--- NOTE | 2017-04-16 11:32 | Discharge Instructions ---
Discharge Instructions Date of Service Apr 16, 2017. Admission Reason for Admission: Closed Right Hip Fracture Discharge Discharge Diagnosis / Problem: right femur fracture, acute blood loss anemia Discharge Goals Goal(s): Diagnostic testing, Therapeutic intervention Activity Recommendations Activity Level: Assistance Required Therapies: Physical Therapy, Occupational Therapy . Additional Information Patient informed of condition: Yes Advance Directives: Yes DNR: No Level of Care: Acute Rehab Communicable Disease: Yes Prognosis: Stable Cuello Catheter: Yes Instructions / Follow-Up Instructions / Follow-Up 51 F with traumatic R femoral fracture with intertrochanteric albert placed 04/13. , with PMHx liver cirrhosis, T2DM, hypothyroidism, seizure disorder, migraines, asthma, parkinsonism, bipolar disorder, depression, chronic pancytopenia, and GERD, this pt has issues with opiate pain medication misuse and has had multiple falls in the hospital some resulting in significant trauma R intertrochanteric hip fracture s/p mechanical fall: ORIF 04/13, significant swelling, from hematoma acute blood loss anemia, symptomatic, transfusion 3 u prbc 04/14-, will cautiously continue sc dvt prevention as swelling increases risk Liver cirrhosis. chronic pancytopenia: now complaining of diarrhea will reduce Lactulose BID, Rifaximin 550 mg BID T2DM- ha1c 4.8% on 12/2016: despite good A1c she continues to remain in poor control post op continue lantus, pt requests bid dosing, did require less here then home likley due to dietary discression at home, and tighten ssi, since A1c was low this could have an impact on her falls Recent UTI- diagnosed in ED on 04/06: Cefdinir- completes 04/14 Hypothyroidism: Synthroid 75 mcg daily Bipolar disorder, depression: called Help line 04/13 placed on 1:1, Psychiatry evaluation will continue Remeron 45 mg HS, Zoloft 25 mg daily. Continued Cautioned about opiate use post discharge making another reason for rehab for med surveillance Seizure disorder: stable on Keppra 2000 mg BID, Trileptal 300 mg HS Asthma: no symptoms Ventolin and Symbicort h/o migraines: Maxalt 10 mg q2 hrs PRN, Topamax 75 mg BID GERD: Protonix 40 mg daily DVT prophylaxis: heparin sc bid Code Status: LEVEL I, FULL Current Hospital Diet Patient's current hospital diet: Diabetes Type 2 Diet, AHA Diet (Heart Healthy) Discharge Diet Recommended Diet: Low Sodium Diet (2gm Na) Procedures Procedures Performed: Intramedullary Albert Femur, Right Hip Pending Studies Studies pending at discharge: no Medical Emergencies . Who to Call and When: Medical Emergencies: If at any time you feel your situation is an emergency, please call 911 immediately. . Non-Emergent Contact Non-Emergency issues call your: Primary Care Provider, Surgeon Call Non-Emergent contact if: temperature is above 101, your pain is unusual for you . . "Provider Documentation" section prepared by Erick Rice. . Enforcement Officer Recommendations Enforcement Officer Recommendations: U DISCHARGE INSTRUCTIONS: HIP FRACTURE SELF CARE INSTRUCTIONS: A. You are to ambulate with a walker or crutches for approximately 6 weeks. B. You are TOE TOUCH WEIGHT BEARING on your operative lower extremity for at least 6 weeks. C. Wear low heeled shoes with non-slip soles D. Be sure that your floors are free of things that could trip you throw rugs, electrical cords, and small objects. Avoid wet and waxed floors, especially with crutches/walker/cane. E. Try to walk several times a day with rest periods between. F. You may shower 48 hours after surgery and get the incision area wet, but DO NOT soak or submerge incision area in water. (No baths, swimming pools, hot tubs ) G. You may have a large, band-aid like dressing over your incision (Aquacel). This will remain on your incision for 7 days, and then can be removed. You CAN shower with this on. If incision is leaking through the dressing, please call the office . H. Do NOT apply soap or any ointment/lotions directly over incision. I. You may use ice as needed to operative site. SPECIAL CARE INSTRUCTIONS: VERY IMPORTANT TO READ AND REVIEW A. You may be at risk for phlebitis or blood clots. a. Wear surgical stockings (MIRYAM hose) for 2 weeks after surgery to improve circulation and reduce swelling. B. There are a few signs you need to watch for after you are home. Call [facility] at [phone] if you experience any of the following: a. If you have a temperature of 101 degrees or higher. b. Sudden increase in pain in your hip not relieved by rest or pain medication. c. Any fluid or drainage from the incision; redness of the incision. d. Shortness of breath or chest pain. B. Please call [facility] at [phone] if you have any questions or concerns about your operation or recovery. C. Call your physician if: a. Temperature is greater than 101 degrees (F). b. Pain is not relieved by prescribed pain medications. c. Increase drainage or redness from incision. d. Unanswered questions or concerns. D. Pain Medication: a. You will be prescribed pain medication upon discharge that should last till your first post-operative appointment. b. If you experience nausea and/or skin rash, discontinue this medication and contact our office for an alternative medication. c. Caution- narcotic pain medication can cause constipation. FOLLOW UP VISIT: Please call [facility] and Dr Moore at [phone] to schedule a follow up appointment 10-14 days from the date of your surgery date. Core Measure Problem Core Measures: None
[2017-04-16] MEDS ORDERED: HPRIS5M SQ (11:33)
[2017-04-16] MEDS ORDERED: NURSING VERBAL MED ORDER ONE (12:45)
--- NOTE | 2017-04-16 18:34 | Progress Note ---
Subjective Date of Service: Apr 16, 2017. Subjective this pt is still with significant pain requiring parenteral opiates for control , she had a nose bleed and will humidify oxygen and provide nasal saline. she is concerned about her gastroparesis, and requests frequent small meals Problem List Medical Problems: (1) Acute bronchitis Status: Acute (2) Acute bronchitis Status: Acute (3) Acute hepatic encephalopathy Status: Acute (4) Alkaline phosphatase elevation Status: Acute (5) Back pain Status: Acute (6) Bradycardia Status: Acute (7) Breakthrough seizure Status: Acute (8) Burn Status: Acute (9) Change in mental status Status: Acute (10) Change in mental status Status: Acute (11) Change in mental status Status: Acute (12) Change in mental status Status: Acute (13) Chronic low back pain Status: Acute (14) Closed head injury Status: Acute (15) Dehydration Status: Acute (16) Dizziness Status: Acute (17) Facial laceration Status: Acute (18) Fall Status: Acute (19) Fall Status: Acute (20) Fall Status: Acute (21) Fatigue Status: Acute (22) Hemorrhoid Status: Acute (23) Hepatic encephalopathy Status: Acute (24) Hepatic encephalopathy Status: Acute (25) Hepatic encephalopathy Status: Acute (26) Hepatic encephalopathy Status: Acute (27) Hepatic encephalopathy Status: Acute (28) Hepatic encephalopathy Status: Acute (29) Hepatic encephalopathy Status: Acute (30) Hepatic encephalopathy Status: Acute (31) Hepatic encephalopathy Status: Acute (32) Hepatic encephalopathy Status: Acute (33) Hepatic encephalopathy Status: Acute (34) Hepatic encephalopathy Status: Acute (35) Hepatic encephalopathy Status: Acute (36) Hepatic encephalopathy Status: Acute (37) Hyperammonemia Status: Acute (38) Hyperammonemia Status: Acute (39) Hyperammonemia Status: Acute (40) Hyperammonemia Status: Acute (41) Hypocalcemia Status: Acute (42) Hypocalcemia Status: Acute (43) Hypokalemia Status: Acute (44) Hypokalemia Status: Acute (45) Hypokalemia Status: Acute (46) Hypomagnesemia Status: Acute (47) Increased ammonia level Status: Acute (48) Intertrochanteric fracture of left femur Status: Acute (49) Left foot pain Status: Acute (50) Left shoulder pain Status: Acute (51) Leukopenia Status: Acute (52) Low back pain Status: Acute (53) Migraine Status: Acute (54) Nausea & vomiting Status: Acute (55) Noncompliance with medication regimen Status: Acute (56) Pain in pelvis Status: Acute (57) Pancytopenia Status: Acute (58) Persistent vomiting Status: Acute (59) Post-operative pain Status: Acute (60) Right ear pain Status: Acute (61) Right groin pain Status: Acute (62) Right hip pain Status: Acute (63) Right upper lobe pneumonia Status: Acute (64) RUQ abdominal pain Status: Acute (65) Sepsis Status: Acute (66) Vomiting Status: Acute (67) Weakness Status: Acute (68) Weakness Status: Acute (69) Weakness Status: Acute (70) Weakness Status: Acute Review of Systems Constitutional: + weakness, + fatigue, No fever, No chills Respiratory: No cough, No shortness of breath, No dyspnea on exertion Cardiac: + edema, No chest pain Abdomen: No pain, No nausea, No vomiting, No diarrhea Female : No dysuria, No urinary frequency Psychiatric: No depression symptoms, No anhedonism, No anxiety ( ) Objective Vital Signs Date Time Temp Pulse Resp B/P (MAP) Pulse Ox O2 Delivery O2 Flow Rate FiO2 04/16/17 16:00 98 Nasal Cannula 2.0 04/16/17 15:14 37.1 80 15 112/63 (79) 98 Nasal Cannula 2.0 04/16/17 12:00 Humidified Oxygen 2.0 04/16/17 11:27 37.2 84 16 125/67 (86) 97 Humidified Oxygen 2.0 04/16/17 09:59 97 Humidified Oxygen 2.0 04/16/17 07:57 37.1 92 18 147/62 (90) 94 Room Air 04/16/17 04:23 36.8 84 17 126/55 (78) 93 Room Air 04/16/17 04:00 Room Air 04/15/17 23:59 Room Air 04/15/17 23:36 36.9 79 19 149/59 (89) 97 Room Air 04/15/17 20:00 37.5 72 19 108/46 97 04/15/17 20:00 Room Air 04/15/17 19:00 37.2 80 20 109/49 97 04/15/17 18:46 37.3 82 19 111/46 97 Physical Exam General Appearance: WD/WN, + moderate distress Eyes: normal inspection, sclerae normal Neck: supple, no adenopathy Respiratory/Chest: chest non-tender, + respiratory distress Cardiovascular: regular rate, rhythm, + systolic murmur Abdomen: normal bowel sounds, non tender, soft Extremities: + pedal edema, + slow capillary refill, + swelling Neurologic/Psychiatric: alert, oriented x 3 Laboratory Results Last 24 Hours Test 04/15/17 20:06 04/16/17 04:30 04/16/17 07:01 04/16/17 11:18 Bedside Glucose 210 mg/dl 192 mg/dl 235 mg/dl White Blood Count 3.99 K/uL Red Blood Count 2.56 M/uL Hemoglobin 8.7 g/dL Hematocrit 24.6 % Mean Corpuscular Volume 96.1 fL Mean Corpuscular Hemoglobin 34.0 pg Mean Corpuscular Hemoglobin Concent 35.4 g/dl RDW Standard Deviation 57.3 fL RDW Coefficient of Variation 17.0 % Platelet Count 60 K/uL Mean Platelet Volume 10.3 fL Nucleated RBC Absolute Count (auto) 0.03 K/uL Nucleated Red Blood Cells % 0.8 % Platelet Estimate DECREASED Prothrombin Time 11.8 SECONDS Prothromb Time International Ratio 1.1 Activated Partial Thromboplast Time 28.7 SECONDS Partial Thromboplastin Ratio 1.1 Sodium Level 138 mmol/L Potassium Level 3.5 mmol/L Chloride Level 107 mmol/L Carbon Dioxide Level 26 mmol/L Anion Gap 5.0 mmol/L Blood Urea Nitrogen 14 mg/dl Creatinine 0.60 mg/dl Est Creatinine Clear Calc Drug Dose 125.7 ml/min Estimated GFR () 122.3 Estimated GFR (Non- 105.5 BUN/Creatinine Ratio 23.1 Random Glucose 170 mg/dl Calcium Level 6.9 mg/dl Test 04/16/17 16:17 Bedside Glucose 197 mg/dl Assessment and Plan 51 F with traumatic R femoral fracture with intertrochanteric vijaya placed 04/13. , with PMHx liver cirrhosis, T2DM, hypothyroidism, seizure disorder, migraines, asthma, parkinsonism, bipolar disorder, depression, chronic pancytopenia, and GERD, this pt has issues with opiate pain medication misuse and has had multiple falls in the hospital some resulting in significant trauma R intertrochanteric hip fracture s/p mechanical fall:pain control continues to be a challenge ORIF 1/14, significant swelling, from hematoma did require transfusion acute blood loss anemia, symptomatic, transfusion 3 u prbc 04/14-, will cautiously continue sc dvt prevention as swelling increases risk Liver cirrhosis. chronic pancytopenia: now complaining of diarrhea will reduce Lactulose 15 g BID is tolerating diarrhea better, Rifaximin 550 mg BID T2DM- ha1c 4.8% on 12/2016: despite good A1c she continues to remain in poor control post op continue lantus 40 u, and tighten ssi, since A1c was low this could have an impact on her falls. Gastroparesis will change to frequent small meals Recent UTI- diagnosed in ED on 04/06: Cefdinir- completes 04/14 Hypothyroidism: Synthroid 75 mcg daily Bipolar disorder, depression: called Help line 04/13 placed on 1:1, Psychiatry evaluation will continue Remeron 45 mg HS, Zoloft 25 mg daily. Continued Cautioned about opiate use post discharge making another reason for rehab for med surveillance Seizure disorder: stable on Keppra 2000 mg BID, Trileptal 300 mg HS Asthma: no symptoms Ventolin and Symbicort h/o migraines: Maxalt 10 mg q2 hrs PRN, Topamax 75 mg BID GERD: Protonix 40 mg daily DVT prophylaxis: MIRYAM/SCDs; chemical anticoagulation as per surgery Code Status: LEVEL I, FULL Continued [facility] stay due to: inadequate oral pain control, home environment unsafe for pt
[2017-04-16] MEDS: MIRTAZAPINE TAB 15 MG TAB PO SCH (21:25)
[2017-04-16] MEDS: DOCUSATE SODIUM/SENNA 50/8.6MG TAB PO SCH (21:34)
[2017-04-17] MEDS: PROCHLORPERAZINE INJ 5 MG in SYRINGE 4 ML IV PRN ×2 (00:50→09:34)
[2017-04-17] MEDS: HYDROmorphone INJ 1 MG/ML SYR IV PRN ×3 (02:14→12:14)
[2017-04-17 05:55] LABS: HEMATOCRIT 27.5 % (37-47); HEMOGLOBIN 9.6 g/dL (12.0-16.0); MEAN CELL VOLUME 96.8 fL (80-100); MEAN CORPUSCULAR HEMOGLOBIN 33.8 pg (25-34); MEAN CORPUSCULAR HGB CONC 34.9 g/dl (32-36); RED CELL DISTRIBUTION WIDTH CV 17.1 % (11.5-14.5); RED CELL DISTRIBUTION WIDTH SD 57.8 fL (36.4-46.3); WHITE BLOOD COUNT 5.79 K/uL (4.8-10.8)
[2017-04-17] MEDS: LEVOTHYROXINE 75 MCG TAB PO SCH (06:09)
[2017-04-17 06:33] LABS: CALCIUM 7.4 mg/dl (8.5-10.1); CREATININE 0.66 mg/dl (0.60-1.20); POTASSIUM 3.8 mmol/L (3.5-5.1)
[2017-04-17 06:34] LABS: MEAN PLATELET VOLUME 10.4 fL (7.4-10.4); PLATELET COUNT 78 K/uL (130-400)
[2017-04-17] MEDS: MAGNESIUM OXIDE 400 MG TAB PO SCH (07:18)
[2017-04-17] MEDS: BUMETANIDE 1 MG TAB PO SCH (07:21)
[2017-04-17] MEDS: CHOLECALCIFEROL 1000 INTER.UNIT TAB PO SCH (07:21)
[2017-04-17] MEDS: LACTOBACILLUS ACIDOPHILUS (FLORANEX) TAB PO SCH (07:21)
[2017-04-17] MEDS: MULTIVITAMIN TAB PO SCH (07:21)
[2017-04-17 07:22] VITALS: BP 101/67; PULSE 112; TEMP 36.8; O2SAT 96
[2017-04-17] MEDS: OXCARBAZEPINE 150 MG TAB PO SCH (07:22)
[2017-04-17] MEDS: TOPIRAMATE 25 MG TAB PO SCH ×2 (07:23)
[2017-04-17] MEDS: RIFAXIMIN TAB 550 MG TAB PO SCH (07:23)
[2017-04-17] MEDS: LEVETIRACETAM 500 MG TAB PO SCH (07:23)
[2017-04-17] MEDS: LACTULOSE SYRUP 10 GM/15 ML BTL 473 ML PO SCH (07:23)
[2017-04-17] MEDS: SERTRALINE HCL 50 MG TAB PO SCH (07:24)
[2017-04-17] MEDS: HEPARIN SOD 5000 UNIT/0.5 ML CARP SQ SCH (07:27)
[2017-04-17] MEDS: INSULIN ASPART 100 UNITS/ML 3 ML PEN SC SCH ×2 (08:27→12:14)
[2017-04-17] MEDS: INSULIN GLARGINE SC SCH (08:28)
[2017-04-17 12:37] VITALS: BP 101/67; PULSE 112; TEMP 36.8; O2SAT 96
[2017-04-17] MEDS: OXYCODONE HCL IR 5 MG TAB (IMMEDIATE RELEASE) PO PRN (13:47)
--- NOTE | 2017-04-17 16:36 | Discharge Summary ---
Discharge Summary Date of Service Apr 17, 2017. Discharge Summary Admission Date: Apr 12, 2017 at 15:32 Discharge Date: Apr 16, 2017 Discharge Disposition: Rehab Principal Diagnosis: right comminuted proximal femur fracture Immunizations: Have You Had Influenza Vaccine: Yes Influenza Vaccine Date: Feb 02, 2013 History of Tetanus Vaccine?: utd Tetanus Immunization Date: Jun 11, 2008 History of Pneumococcal: SEE LAST PACKET Pneumococcal Date: Nov 13, 2008 History of Hepatitis B Vaccine: Unknown Hepatitis Immunization Date: Jan 12, 1996 Procedures: transfusion 3 U prbc Consultations: Dr Murphy repaired femur fracture Medication Reconciliation New Medications: Heparin Sod (Porcine) (Heparin Sodium) 5,000 Unit/0.5 Ml Inj 5000 UNIT SQ Q12, #64 DOSE Oxycodone HCl (Oxycodone HCl) 5 Mg Tab 10 MG PO Q8H PRN for Pain, #30 TAB Saline ([place] Nasal [place]) 0.65 % Spr 2 SPRAYS NA Q1H PRN for dry nose, #1 BTL Changed Medications: Insulin Glargine (Lantus Solostar) 100 Unit/Ml Inj 25 UNITS SC BID, #1 PEN (Changed from: 40 ; AMPM) start 04/17 as pt did have daily dose in am, but pt prefers bid dose at h ome Continued Medications: Albuterol Hfa (Ventolin Hfa) 200 Puffs/63133 Mcg Aers 2-4 PUFFS INH Q6H PRN for Shortness of Breath, #1 INHALER Ascorbic Acid (Vitamin C) 1,000 Mg Tab 1000 MG PO DAILY Benzonatate (Benzonatate) 100 Mg Cap 1 CAP PO TID PRN for Cough Bumetanide (Bumex) 1 Mg Tab 1 MG PO QAM, TAB Cholecalciferol (Vitamin D) 1,000 Unit Tab 5000 UNITS PO DAILY Cranberry (Vaccinium Macrocarp (Cranberry Extract) 200 Mg Cap 1 CAP PO BID Dextromethorphan Polistirex (Delsym) 30 Mg/5 Ml Liq 10 ML PO Q8 PRN for Cough, ML Insulin Lispro (Human) (Humalog Kwikpen) 100 Unit/Ml Inj UNITS SC UD PER SLIDING SCALE Lactulose (Chronulac) 10 Gm/15 Ml Syrp 30 ML PO BID titrate to maintain 2-3 bowel mvmts daily Lecithin (Lecithin 3500) 1,200 Mg Cap 1 CAP PO DAILY Levetiracetam (Levetiracetam) 1,000 Mg Tab 2000 MG PO BID Levothyroxine Sodium (Levothyroxine Sodium) 75 Mcg Tab 75 MCG PO QAM, TAB Lutein-Zeaxanthin (Lutein) 1 Cap Cap 1 CAP PO DAILY Magnesium Oxide (Mg Supplement (Magnesium) 500 Mg Tab 500 MG PO BID Mirtazapine (Mirtazapine) 45 Mg Tab 1 TAB PO HS for 30 Days, #30 TAB Multivitamin (Multivitamin) Tab 1 TAB PO DAILY, TAB Omeprazole (Prilosec) 20 Mg Capcr 20 MG PO QAM, CAP Oxcarbazepine (Trileptal) 300 Mg Tab 300 MG PO AMHS Potassium Gluconate (Hm Potassium) 595 Mg Tab 1 TAB PO BID Probiotic Product (Probiotic) 1 Cap Cap 1 CAP PO DAILY Rifaximin (Xifaxan) 550 Mg Tab 550 MG PO BID, TAB Rizatriptan Benzoate (Maxalt) 10 Mg Tab 10 MG PO DIRECTED PRN for Migraine, TAB Sertraline HCl (Sertraline HCl) 25 Mg Tab 25 MG PO DAILY Topiramate (Topamax) 50 Mg Tab 50 MG PO BID TOTAL DOSE: 75MG BID Topiramate (Topamax ) 25 Mg Tab 25 MG PO BID TOTAL DOSE: 75MG BID Vitamin A (Vitamin A) 8,000 Unit Cap 1 CAP PO QAM Zinc Gluconate (Zinc) 50 Mg Tab 50 MG PO BID Discontinued Medications: Cefdinir (Omnicef) 300 Mg Cap 300 MG PO Q12H for 7 Days, #14 CAP Epinephrine (Epipen) 0.3 Mg/0.3 Ml Inj 0.3 MG IM UD PRN for ALLERGIC REACTION Oxycodone Ir (Roxicodone Ir) 5 Mg Tab 5 MG PO Q8 PRN for Pain Promethazine (Phenergan ) 12.5 Mg Tab 1-2 TABS PO Q6, #14 TAB Discharge Exam Review of Systems: Constitutional: + weakness, No fever, No chills Abdomen: + diarrhea, No pain, No nausea Musculoskeletal: + joint pain, + muscle pain, + swelling Physical Exam: General Appearance: WD/WN, + mild distress Respiratory/Chest: chest non-tender, lungs clear, normal breath sounds Cardiovascular: regular rate, rhythm, no murmur Neurologic/Psychiatric: alert, oriented x 3 Hospital Course 51 F with traumatic R femoral fracture with intertrochanteric vijaya placed 04/13. , with PMHx liver cirrhosis, T2DM, hypothyroidism, seizure disorder, migraines, asthma, parkinsonism, bipolar disorder, depression, chronic pancytopenia, and GERD, this pt has issues with opiate pain medication misuse and has had multiple falls in the hospital some resulting in significant trauma R intertrochanteric hip fracture s/p mechanical fall:pain control continues to be a challenge ORIF 04/13, significant swelling, from hematoma did require transfusion of 3 u prbc acute blood loss anemia, symptomatic, transfusion 3 u prbc 04/14- Liver cirrhosis. chronic pancytopenia: Lactulose 30 g BID , Rifaximin 550 mg BID ammonia at discharge in 90's, mentation is about usual for her T2DM- ha1c 4.8% on 12/2016: despite good A1c she continues to remain in poor control post op continue lantus Gastroparesis will change to frequent small meals Recent UTI- diagnosed in ED on 04/06: Cefdinir- completes 04/14 Hypothyroidism: Synthroid 75 mcg daily Bipolar disorder, depression: called Help line 04/13 placed on 1:1, Psychiatry evaluation will continue Remeron 45 mg HS, Zoloft 25 mg daily. Continued Cautioned about opiate use post discharge making another reason for rehab for med surveillance Seizure disorder: stable on Keppra 2000 mg BID, Trileptal 300 mg HS Asthma: no symptoms Ventolin and Symbicort h/o migraines: Maxalt 10 mg q2 hrs PRN, Topamax 75 mg BID GERD: Protonix 40 mg daily Code Status: LEVEL I, FULL Total Time Spent: Greater than 30 minutes This includes examination of the patient, discharge planning, medication reconciliation, and communication with other providers. Discharge Instructions Please refer to the electronic Patient Visit Report (Discharge Instructions) for additional information.
== END 2017-04-17 15:08 | DRG 480 ==
LOC: EDBD 10:28 → C.EDA 10:29 → ENRESERV 15:16 → EDBEDREQ 15:30 → C.MSW 15:32 → EDBEDREQ 15:38 → ENRESERV 04-13 15:54 → UNDODISIN 04-13 16:20 → C.2E 04-13 16:42 → EDBEDREQSVC 04-16 17:10 → ENRESERV 04-16 17:19 → C.MS2W 04-16 18:36
PROVIDERS: ADMIT Family Medicine; ATTEND Internal Medicine
PROC: 0QS606Z Reposition Right Upper Femur with Intramedullary Internal Fixation Device, Open Approach (ICD-10-PCS; principal; 2017-04-13 10:00)
DX: S72.141A Displaced intertrochanteric fracture of right femur, initial encounter for closed fracture (principal); K72.00 Acute and subacute hepatic failure without coma; D61.818 Other pancytopenia; S72.21XA Displaced subtrochanteric fracture of right femur, initial encounter for closed fracture; J45.909 Unspecified asthma, uncomplicated; F31.9 Bipolar disorder, unspecified; E11.43 Type 2 diabetes mellitus with diabetic autonomic (poly)neuropathy; F60.3 Borderline personality disorder; K74.60 Unspecified cirrhosis of liver; D46.9 Myelodysplastic syndrome, unspecified; E83.51 Hypocalcemia; Z88.0 Allergy status to penicillin; E87.6 Hypokalemia; G40.909 Epilepsy, unspecified, not intractable, without status epilepticus; E03.9 Hypothyroidism, unspecified; G20 Parkinson's disease; Y92.013 Bedroom of single-family (private) house as the place of occurrence of the external cause; K75.81 Nonalcoholic steatohepatitis (NASH); W18.31XA Fall on same level due to stepping on an object, initial encounter

== ENCOUNTER → 2017-05-14 | Outpatient (CLI) | payer BC, OTHER ==
[~2017-05-14] MED LIST changes: -CEFD300C2 PO; -EPP3/2 IM; +HPRIS5M SQ; -OXYC1TAB3 PO; +POTA1TAB PO; -PROM12.57 PO; +RXC5 PO; +SALI0.6510; -SPIR25TA PO; +VITA80005 PO
[2017-05-14 07:46] LABS: BASO % 0.6 %; BASO ABS # 0.02 K/uL (0-0.2); EOS % 5.4 %; EOS ABS # 0.17 K/uL (0-0.5); HEMATOCRIT 33.8 % (37-47); HEMOGLOBIN 10.8 g/dL (12.0-16.0); LYMPH % 29.1 %; LYMPH ABS # 0.91 K/uL (1.2-3.4); MEAN CELL VOLUME 104.3 fL (80-100); MEAN CORPUSCULAR HEMOGLOBIN 33.3 pg (25-34); MEAN PLATELET VOLUME 10.6 fL (7.4-10.4); MONO % 10.2 %; MONO ABS # 0.32 K/uL (0.11-0.59); NEUT % 54.7 %; NEUT ABS # 1.71 K/uL (1.4-6.5); PLATELET COUNT 124 K/uL (130-400); RED CELL DISTRIBUTION WIDTH CV 14.9 % (11.5-14.5); RED CELL DISTRIBUTION WIDTH SD 57.3 fL (36.4-46.3); WHITE BLOOD COUNT 3.13 K/uL (4.8-10.8)
[2017-05-14 08:14] LABS: ALBUMIN 2.4 gm/dl (3.4-5.0); ALT/SGPT 33 U/L (12-78); BLOOD UREA NITROGEN 8 mg/dl (7-18); CALCIUM 8.3 mg/dl (8.5-10.1); CARBON DIOXIDE 27 mmol/L (21-32); CREATININE 0.47 mg/dl (0.60-1.20); GLUCOSE 83 mg/dl (70-99); POTASSIUM 3.8 mmol/L (3.5-5.1); SODIUM 145 mmol/L (136-145)
[2017-05-14 08:22] LABS: ALKALINE PHOSPHATASE 275 U/L (45-117); AST/SGOT 45 U/L (15-37); TOTAL PROTEIN 5.7 gm/dl (6.4-8.2); TRANSFERRIN 248 mg/dl (200-360)
[2017-05-14 08:26] LABS: HEMOGLOBIN A1C 4.9 % (4.5-5.6)
== END ==
LOC: C.LABCC 07:35
PROVIDERS: ATTEND Internal Medicine
DX: R56.9 Unspecified convulsions (principal); E11.9 Type 2 diabetes mellitus without complications; K74.60 Unspecified cirrhosis of liver; D61.818 Other pancytopenia

== ENCOUNTER → 2017-05-19 | Outpatient (CLI) | payer BC, OTHER ==
[2017-05-19 08:40] LABS: HEMATOCRIT 31.1 % (37-47); HEMOGLOBIN 10.8 g/dL (12.0-16.0); MEAN CELL VOLUME 98.4 fL (80-100); MEAN CORPUSCULAR HEMOGLOBIN 34.2 pg (25-34); MEAN CORPUSCULAR HGB CONC 34.7 g/dl (32-36); RED CELL DISTRIBUTION WIDTH CV 13.7 % (11.5-14.5); RED CELL DISTRIBUTION WIDTH SD 49.4 fL (36.4-46.3); WHITE BLOOD COUNT 2.55 K/uL (4.8-10.8)
--- NOTE | 2017-05-19 09:10 | DIAGNOSTIC IMAGING REPORT ---
TWO VIEW CHEST CLINICAL HISTORY: +PPD. FINDINGS: AP and lateral chest radiographs are compared to study dated 04/12/2017. Correlation is made with chest CT dated 08/01/2012. The AP view is degraded by patient rotation there is the lateral view is degraded by the patient's arms which could not be elevated. A right-sided central venous infusion port is unchanged in position. Electronic device is again seen in the left chest wall. The cardiomediastinal silhouette is unremarkable. There are low lung volumes with bibasilar atelectasis. No airspace consolidation or pleural effusion is identified. There is no pneumothorax. The skeletal structures are osteopenic. Chronic postoperative and posttraumatic change is seen in the left humerus. IMPRESSION: Low lung volumes with no acute cardiopulmonary abnormality. Electronically signed by: Aiden Randolph M.D. 05/19/2017 9:09 AM Dictated Date/Time: 05/19/2017 9:06 AM
[2017-05-19 09:13] LABS: MEAN PLATELET VOLUME 10.4 fL (7.4-10.4); PLATELET COUNT 97 K/uL (130-400)
[2017-05-19 09:15] LABS: BASO % 0.4 %; BASO ABS # 0.01 K/uL (0-0.2); EOS % 5.1 %; EOS ABS # 0.13 K/uL (0-0.5); LYMPH % 33.7 %; LYMPH ABS # 0.86 K/uL (1.2-3.4); MONO ABS # 0.28 K/uL (0.11-0.59); NEUT % 49.8 %; NEUT ABS # 1.27 K/uL (1.4-6.5)
== END | disposition home or self-care (01) ==
LOC: C.RAD 08:07
PROVIDERS: ATTEND Internal Medicine
DX: R76.11 Nonspecific reaction to tuberculin skin test without active tuberculosis (principal)

== ENCOUNTER → 2017-06-12 | Outpatient (CLI) | payer BC, OTHER ==
[2017-06-12 14:44] LABS: BASO % 0.3 %; BASO ABS # 0.01 K/uL (0-0.2); EOS % 3.4 %; EOS ABS # 0.11 K/uL (0-0.5); HEMATOCRIT 31.9 % (37-47); HEMOGLOBIN 11.1 g/dL (12.0-16.0); LYMPH % 28.4 %; LYMPH ABS # 0.91 K/uL (1.2-3.4); MEAN CELL VOLUME 97.9 fL (80-100); MEAN CORPUSCULAR HGB CONC 34.8 g/dl (32-36); MEAN PLATELET VOLUME 9.6 fL (7.4-10.4); MONO % 10.9 %; MONO ABS # 0.35 K/uL (0.11-0.59); NEUT ABS # 1.82 K/uL (1.4-6.5); PLATELET COUNT 115 K/uL (130-400); RED CELL DISTRIBUTION WIDTH CV 13.6 % (11.5-14.5); RED CELL DISTRIBUTION WIDTH SD 48.7 fL (36.4-46.3)
[2017-06-12 14:52] LABS: INR 1.1 (0.9-1.1)
[2017-06-12 15:12] LABS: ALBUMIN 2.6 gm/dl (3.4-5.0); ALKALINE PHOSPHATASE 224 U/L (45-117); ALT/SGPT 37 U/L (12-78); AST/SGOT 45 U/L (15-37); BLOOD UREA NITROGEN 9 mg/dl (7-18); CARBON DIOXIDE 28 mmol/L (21-32); CREATININE 0.57 mg/dl (0.60-1.20); GLUCOSE 165 mg/dl (70-99); SODIUM 141 mmol/L (136-145); TOTAL PROTEIN 6.2 gm/dl (6.4-8.2)
== END | disposition home or self-care (01) ==
LOC: C.LAB 13:25
PROVIDERS: ATTEND Internal Medicine Gastroenterology
DX: K74.60 Unspecified cirrhosis of liver (principal)

== ENCOUNTER → 2017-06-19 | Outpatient (CLI) | payer BC, OTHER ==
[2017-06-19 08:17] LABS: BASO % 0.9 %; BASO ABS # 0.03 K/uL (0-0.2); EOS ABS # 0.14 K/uL (0-0.5); HEMATOCRIT 30.4 % (37-47); HEMOGLOBIN 10.4 g/dL (12.0-16.0); IG# 0.01 K/uL (0.00-0.02); LYMPH % 31.8 %; LYMPH ABS # 1.11 K/uL (1.2-3.4); MEAN CELL VOLUME 98.7 fL (80-100); MEAN CORPUSCULAR HEMOGLOBIN 33.8 pg (25-34); MEAN CORPUSCULAR HGB CONC 34.2 g/dl (32-36); MEAN PLATELET VOLUME 9.6 fL (7.4-10.4); MONO % 8.6 %; NEUT % 54.4 %; PLATELET COUNT 126 K/uL (130-400); RED CELL DISTRIBUTION WIDTH CV 14.1 % (11.5-14.5); RED CELL DISTRIBUTION WIDTH SD 49.8 fL (36.4-46.3); WHITE BLOOD COUNT 3.49 K/uL (4.8-10.8)
[2017-06-19 08:23] LABS: ALBUMIN 2.4 gm/dl (3.4-5.0); ALT/SGPT 32 U/L (12-78); BLOOD UREA NITROGEN 8 mg/dl (7-18); CALCIUM 7.8 mg/dl (8.5-10.1); CARBON DIOXIDE 27 mmol/L (21-32); CREATININE 0.44 mg/dl (0.60-1.20); GLUCOSE 76 mg/dl (70-99); POTASSIUM 3.8 mmol/L (3.5-5.1); SODIUM 145 mmol/L (136-145)
[2017-06-19 08:24] LABS: INR 1.2 (0.9-1.1)
[2017-06-19 08:26] LABS: ALKALINE PHOSPHATASE 206 U/L (45-117); AST/SGOT 43 U/L (15-37); TOTAL PROTEIN 5.8 gm/dl (6.4-8.2)
[2017-06-19 09:47] LABS: PTT PATIENT 32.1 SECONDS (21.0-31.0)
== END ==
LOC: C.LABCC 07:47
PROVIDERS: ATTEND Internal Medicine
DX: K74.60 Unspecified cirrhosis of liver (principal)

== ENCOUNTER → 2017-06-27 | Outpatient (CLI) | payer BC, OTHER ==
[2017-06-27 08:15] LABS: HEMATOCRIT 29.2 % (37-47); HEMOGLOBIN 10.4 g/dL (12.0-16.0); MEAN CELL VOLUME 96.4 fL (80-100); MEAN CORPUSCULAR HEMOGLOBIN 34.3 pg (25-34); MEAN CORPUSCULAR HGB CONC 35.6 g/dl (32-36); MEAN PLATELET VOLUME 9.9 fL (7.4-10.4); PLATELET COUNT 107 K/uL (130-400); RED CELL DISTRIBUTION WIDTH CV 14.3 % (11.5-14.5); RED CELL DISTRIBUTION WIDTH SD 50.2 fL (36.4-46.3)
== END ==
LOC: C.LABCC 08:04
PROVIDERS: ATTEND Internal Medicine
DX: D64.9 Anemia, unspecified (principal)

== ENCOUNTER → 2017-06-27 | Outpatient (CLI) | payer BC, OTHER ==
--- NOTE | 2017-06-27 08:01 | DIAGNOSTIC IMAGING REPORT ---
BILIARY ULTRASOUND CLINICAL HISTORY: Cirrhosis COMPARISON STUDY: 02/24/2017 FINDINGS: There were poor acoustic windows and the study is very limited from a technical standpoint. The gallbladder surgically absent. There is no right-sided hydronephrosis. The pancreas was nonvisualized. The liver was poorly visualized. No definite hepatic masses are evident. There is no ductal dilatation. The common bile duct measures 3 mm. Flow within the main portal vein appeared reversed. IMPRESSION: 1. Very limited study from a technical standpoint 2. Evidence of portal hypertension with hepatofugal main portal vein flow 3. Surgically absent gallbladder. Nonvisualization the pancreas 4. No evidence of ductal dilatation Electronically signed by: Bran Hernandez M.D. 06/27/2017 8:00 AM Dictated Date/Time: 06/27/2017 7:58 AM
== END | disposition home or self-care (01) ==
LOC: C.ULTR 07:13
PROVIDERS: ATTEND Internal Medicine Gastroenterology
DX: K76.6 Portal hypertension (principal); K74.60 Unspecified cirrhosis of liver

== ENCOUNTER 2017-07-09 19:13 | Emergency (ER) | payer BC, OTHER ==
[~2017-07-09] VITALS: Ht 165.1 cm; Wt 95.0 kg
[2017-07-09 19:33] VITALS: TEMP 36.9; Ht 165.1 cm; Wt 95.0 kg
--- NOTE | 2017-07-09 20:37 | EMERGENCY ROOM VISIT NOTE ---
History Report prepared by Broderick: Martin Winn Under the Supervision of: Dr. Nilam Johnston M.D. First contact with patient: 20:21 Chief Complaint: URINARY SYMPTOMS Stated Complaint: DIFFICULTY URINATING Nursing Triage Summary: Patient reports that "i'm not able to pee correctly. I'm on two diuretics and they aren't working" Patient notes that she is urinating just small amount. Notes abdominal pain with it, as well as right flank pain. Patient's states that she is still recovering from right broken hip. History of Present Illness The patient is a 51 year old female who presents to the Emergency Room with complaints of the constant inability to urinate beginning this morning. She currently rates her discomfort a 9/10 in severity. The patient states she has tried to urinate 2-3 times but all she could produce were droplets. She reports she feels like her bladder is full. The patient notes she took her medication this morning as prescribed. She denies a fever. Review of EMR showed the patient had a hip fracture three months ago and had an intramedullary nail placed. Source of History: patient Onset: this morning Symptom Intensity: 9/10 Quality: other (inability to urinate) Timing: constant Associated Symptoms: No fevers Review of Systems See HPI for pertinent positives & negatives. A total of 10 systems reviewed and were otherwise negative. Past Medical & Surgical Medical Problems: (1) Asthma (2) Bipol I, Rec Epis (Or Current) Depressed, Unspecified (3) Borderline personality disorder (4) Cirrhosis (5) Closed right hip fracture (6) Diab Ashley Wo Comp Type Ii Or Nos/Not Uncontrolled (7) Diabetic gastroparesis (8) Heart murmur (9) History of hepatic encephalopathy (10) Hyponatremia (11) Hypothyroidism (12) Major depressive disorder with psychotic features (13) Migraines (14) Myelodysplastic syndrome (15) Pancytopenia (16) Peptic ulcer disease (17) Portal Hypertension (18) Seizure disorder (19) Suicidal ideation Surgical Problems: (1) H/O nasal septoplasty (2) History of appendectomy (3) History of cholecystectomy (4) History of hysterectomy (5) History of kyphoplasty (6) History of tonsillectomy (7) s/p spinal stimulator placement Family History Depression Hypertension Social History Smoking Status: Never Smoker Alcohol Use: none Drug Use: none Marital Status: Housing Status: lives with significant other Occupation Status: disabled Current/Historical Medications Scheduled Ascorbic Acid (Vitamin C), 1,000 MG PO DAILY Bumetanide (Bumex), 1 MG PO QAM Cefdinir (Omnicef), 300 MG PO Q12H Cholecalciferol (Vitamin D), 5,000 UNITS PO DAILY Cranberry (Vaccinium Macrocarp (Cranberry Extract), 1 CAP PO BID Heparin Sod (Porcine) (Heparin Sodium), 5,000 UNIT SQ Q12 Insulin Glargine (Lantus Solostar), 25 UNITS SC BID Insulin Lispro (Human) (Humalog Kwikpen), UNITS SC UD Lactulose (Chronulac), 30 ML PO BID Lecithin (Lecithin 3500), 1 CAP PO DAILY Levetiracetam (Levetiracetam), 2,000 MG PO BID Levothyroxine Sodium (Levothyroxine Sodium), 75 MCG PO QAM Lutein-Zeaxanthin (Lutein), 1 CAP PO DAILY Magnesium Oxide (Mg Supplement (Magnesium), 500 MG PO BID Mirtazapine (Mirtazapine), 1 TAB PO HS Multivitamin (Multivitamin), 1 TAB PO DAILY Omeprazole (Prilosec), 20 MG PO QAM Oxcarbazepine (Trileptal), 300 MG PO AMHS Potassium Gluconate (Hm Potassium), 1 TAB PO BID Probiotic Product (Probiotic), 1 CAP PO DAILY Rifaximin (Xifaxan), 550 MG PO BID Sertraline HCl (Sertraline HCl), 25 MG PO DAILY Topiramate (Topamax), 50 MG PO BID Topiramate (Topamax ), 25 MG PO BID Vitamin A (Vitamin A), 1 CAP PO QAM Zinc Gluconate (Zinc), 50 MG PO BID Scheduled PRN Albuterol Hfa (Ventolin Hfa), 2-4 PUFFS INH Q6H PRN for Shortness of Breath Benzonatate (Benzonatate), 1 CAP PO TID PRN for Cough Dextromethorphan Polistirex (Delsym), 10 ML PO Q8 PRN for Cough Oxycodone HCl (Oxycodone HCl), 10 MG PO Q8H PRN for Pain Rizatriptan Benzoate (Maxalt), 10 MG PO DIRECTED PRN for Migraine Saline ([place] Nasal [place]), 2 SPRAYS NA Q1H PRN for dry nose Allergies Coded Allergies: Amoxicillin (Verified Allergy, Intermediate, HIVES; Has tolerated cephalosporins (Rocephin, Ceftin,Keflex, 04/12/17) Azithromycin (Verified Allergy, Intermediate, HIVES, 04/12/17) Baclofen (Verified Allergy, Intermediate, RASH, 04/12/17) Butalbital (Verified Allergy, Intermediate, HIVES, 04/12/17) Clarithromycin (Verified Allergy, Intermediate, RASH, 04/12/17) Dicyclomine (Verified Allergy, Intermediate, HIVES, 04/12/17) HIVES Penicillins (Verified Allergy, Intermediate, RASH; has tolerated cephs ( Rocephin, Keflex, Ceftin), 04/12/17) PT STATES SHE GETS WELTS FROM CIPRO,LEVAQUIN ALLERGY PER DR ROBLES Tetracyclines (Verified Allergy, Intermediate, DOXYCYCLINE-HIVES, 04/12/17) Sulindac (Verified Allergy, Mild, ALLERGY LISTED "CLONDORAL"--HIVES, ) Adhesives (Verified Allergy, Unknown, RASH, DUODERM=RED,ITCHY, 04/12/17) PLASTIC TAPE IS OK!!! DUODERM=RED,ITCHY Clavulanic Acid (Unverified Allergy, Unknown, diahrea , 04/12/17) Metronidazole (Verified Allergy, Unknown, SEIZURE, 04/12/17) Tramadol (Verified Allergy, Unknown, SEIZURES, 04/12/17) Metoclopramide (Verified Adverse Reaction, Severe, SEIZURES, 04/12/17) Blueberry (Verified Adverse Reaction, Mild, STOMACH PAIN, 04/12/17) Furosemide (Verified Adverse Reaction, Unknown, HIVES, 04/12/17) Physical Exam Vital Signs Date Time Temp Pulse Resp B/P (MAP) Pulse Ox O2 Delivery O2 Flow Rate FiO2 07/09/17 23:03 93 18 153/65 95 07/09/17 21:52 87 20 169/65 95 Room Air 07/09/17 19:33 36.9 83 18 121/61 94 Room Air Physical Exam Vital signs reviewed. General: Chronically ill-appearing 51 year old, obese, female, in no significant distress. HEENT: No scleral icterus, PERRLA, neck supple. Atraumatic. Cardiovascular: Regular rate and rhythm, no extra sounds. Pulmonary: Clear to auscultation bilaterally, normal work of breathing. Abdomen: Soft, mild suprapubic tenderness to palpation, nondistended, positive bowel sounds. Musculoskeletal: Atraumatic, 1+ pitting edema bilaterally to the lower extremities. Neurologic: Patient awake alert and oriented x 3 Skin: Warm, dry, no rash Medical Decision & Procedures Laboratory Results Test 07/09/17 21:00 Urine Color DK YELLOW Urine Appearance CLOUDY (CLEAR) Urine pH 8.0 (4.5-7.5) Urine Specific [place] 1.020 (1.000-1.030) Urine Protein NEG (NEG) Urine Glucose (UA) NEG (NEG) Urine Ketones NEG (NEG) Urine Occult Blood TRACE (NEG) Urine Nitrite NEG (NEG) Urine Bilirubin NEG (NEG) Urine Urobilinogen NEG (NEG) Urine Leukocyte Esterase LARGE (NEG) Urine WBC (Auto) >30 /hpf (0-5) Urine RBC (Auto) 0-4 /hpf (0-4) Urine Hyaline Casts (Auto) 5-10 /lpf (0-5) Urine Epithelial Cells (Auto) 0-5 /lpf (0-5) Urine Bacteria (Auto) 4+ (NEG) Laboratory results per my review. Medications Administered Medications (Trade) Dose Ordered Sig/Danita Route Start Time Stop Time Status Last Admin Dose Admin Cefdinir (Omnicef Cap) 300 mg ONE STAT PO 07/09/17 22:00 07/09/17 22:03 DC 07/09/17 22:51 300 MG ED Course 2026: Past medical records reviewed. The patient was evaluated in room B03B. A complete history and physical examination was performed. 2199: Ordered Cefdinir 300mg PO 2217: Upon reevaluation, the patient appeared to have improvement of her symptoms. I discussed findings with the patient. She verbalized agreement of the treatment plan. The patient was discharged home. Medical Decision The patient is a 51 year old female who presents to the ED with complaints of urinary retention. Differentials include: UTI, urinary retention, kidney stone , diverticulitis, medication effect, appendicitis. This patient was evaluated and appeared to be in no significant distress. Bladder scan was performed and reveals approximately 200 mL of urine in the bladder. Patient states she was unable to urinate and a straight cath was performed. UA is indicative of infection. Patient has multiple allergies, she has tolerated ceftriaxone in the past. She was placed on Omnicef 300 mg twice daily for 7 days. Urine culture is pending. Patient was discharged to the care of her and will follow up with her physician for reevaluation. She will return to the ER for worsening of symptoms or any medical concerns. Medication Reconcilliation Current Medication List: was personally reviewed by me Blood Pressure Screening Patient's blood pressure: Elevated blood pressure Blood pressure disposition: Elevated BP felt to be situational Impression Primary Impression: UTI (urinary tract infection) Scribe Attestation The scribe's documentation has been prepared under my direction and personally reviewed by me in its entirety. I confirm that the note above accurately reflects all work, treatment, procedures, and medical decision making performed by me. Departure Information Dispostion Home / Self-Care Prescriptions Cefdinir (Omnicef) 300 Mg Cap 300 MG PO Q12H for 7 Days, #14 CAP Prov: Nilam Johnston M.D. 07/09/17 Referrals Olena Little, DO Forms HOME CARE DOCUMENTATION FORM, IMPORTANT VISIT INFORMATION Patient Instructions My [facility] Additional Instructions Diagnosis: UTI Omnicef 300 mg twice daily for 7 days. Drink plenty of clear fluids. Continue other medications as prescribed. Follow-up with your physician this week for reevaluation. Return to the ER for worsening of symptoms or any medical concerns.
[2017-07-09] MEDS ORDERED: CEFDINIR 300 MG CAP PO STA (22:00)
[2017-07-09] MEDS ORDERED: CEFD1CAP14 PO (22:44)
[2017-07-09 23:03] VITALS: BP 153/65; PULSE 93; O2SAT 95
--- NOTE | 2017-07-11 13:33 | Pharmacy Progress Note ---
ED Pharmacist Culture FollowUp Date of Service: Jul 11, 2017. Patient was sent home with a prescription for cefdinir 300mg BID X 7 days, which should cover the Proteus Mirabilis growing from the patient's urine culture.
== END 2017-07-09 22:55 | disposition home or self-care (01) ==
LOC: C.EDB 19:14
DX: N39.0 Urinary tract infection, site not specified (principal); J45.909 Unspecified asthma, uncomplicated; E11.9 Type 2 diabetes mellitus without complications; Z79.899 Other long term (current) drug therapy; E03.9 Hypothyroidism, unspecified; F31.9 Bipolar disorder, unspecified; F60.3 Borderline personality disorder; F32.3 Major depressive disorder, single episode, severe with psychotic features; Z79.4 Long term (current) use of insulin; Z79.01 Long term (current) use of anticoagulants; Z88.0 Allergy status to penicillin; Z88.1 Allergy status to other antibiotic agents; Z88.8 Allergy status to other drugs, medicaments and biological substances; Z88.6 Allergy status to analgesic agent; Z91.048 Other nonmedicinal substance allergy status; Z91.018 Allergy to other foods; Z82.49 Family history of ischemic heart disease and other diseases of the circulatory system; Z81.8 Family history of other mental and behavioral disorders

== ENCOUNTER 2017-07-14 02:12 | Emergency (ER) | payer BC, OTHER ==
[~2017-07-14 02:12] MED LIST changes: +CEFD1CAP14 PO
[2017-07-14 02:15] VITALS: BP 158/70; PULSE 88; TEMP 36.5; O2SAT 100; Ht 165.1 cm
--- NOTE | 2017-07-14 02:29 | EMERGENCY ROOM VISIT NOTE ---
History Report prepared by Broderick: Eder Tristan Under the Supervision of: Dr. Pino Gonzales M.D. First contact with patient: 02:18 Chief Complaint: OTHER COMPLAINT Stated Complaint: RT FOOT AND ANKLE, AMONIA History of Present Illness The patient is a 51 year old female who presents to the Emergency Room with complaints of persistent right ankle pain for six weeks. She notes swelling to the right ankle. She currently rates her pain a 3/10 in severity. She notes that she broke her hip and femur in March 2017 and was initially sent to [facility] for rehabilitation, though she was transferred to [facility] for further treatment May 13, 2017. She notes that while she was at [facility], the transportation staff did not properly place her legs on the rest of her wheelchair and banged her right foot on a bar. She reports it has been in pain for six weeks since the time of injury. She states that she was recently discharged from [facility] July 07, 2017. She reports an XR was done on the top of her foot. Per , the patient cannot walk very well. The patient is wearing a foot boot on her right foot. The patient is being treated for a UTI with Omnicef. She denies any urinary symptoms. She reports a fever of 99.8 yesterday. She denies any shortness of breath. She has a history of blood clots , though denies any PE or DVT history. Source of History: patient, spouse/significant other Onset: six weeks Position: ankle (right) Symptom Intensity: 3/10 Quality: other (swelling) Timing: other (persistent) Associated Symptoms: + fevers, No SOB, No urinary symptoms Review of Systems See HPI for pertinent positives & negatives. A total of 10 systems reviewed and were otherwise negative. Past Medical & Surgical Medical Problems: (1) Asthma (2) Bipol I, Rec Epis (Or Current) Depressed, Unspecified (3) Borderline personality disorder (4) Cirrhosis (5) Closed right hip fracture (6) Diab Ashley Wo Comp Type Ii Or Nos/Not Uncontrolled (7) Diabetic gastroparesis (8) Heart murmur (9) History of hepatic encephalopathy (10) Hyponatremia (11) Hypothyroidism (12) Major depressive disorder with psychotic features (13) Migraines (14) Myelodysplastic syndrome (15) Pancytopenia (16) Peptic ulcer disease (17) Portal Hypertension (18) Seizure disorder (19) Suicidal ideation Surgical Problems: (1) H/O nasal septoplasty (2) History of appendectomy (3) History of cholecystectomy (4) History of hysterectomy (5) History of kyphoplasty (6) History of tonsillectomy (7) s/p spinal stimulator placement Family History Depression Hypertension Social History Smoking Status: Never Smoker Alcohol Use: none Drug Use: none Marital Status: Housing Status: lives with significant other Occupation Status: disabled Current/Historical Medications Scheduled Ascorbic Acid (Vitamin C), 1,000 MG PO DAILY Bumetanide (Bumex), 1 MG PO QAM Cefdinir (Omnicef), 300 MG PO Q12H Cholecalciferol (Vitamin D), 5,000 UNITS PO DAILY Cranberry (Vaccinium Macrocarp (Cranberry Extract), 1 CAP PO BID Heparin Sod (Porcine) (Heparin Sodium), 5,000 UNIT SQ Q12 Insulin Glargine (Lantus Solostar), 25 UNITS SC BID Insulin Lispro (Human) (Humalog Kwikpen), UNITS SC UD Lactulose (Chronulac), 30 ML PO BID Lecithin (Lecithin 3500), 1 CAP PO DAILY Levetiracetam (Levetiracetam), 2,000 MG PO BID Levothyroxine Sodium (Levothyroxine Sodium), 75 MCG PO QAM Lutein-Zeaxanthin (Lutein), 1 CAP PO DAILY Magnesium Oxide (Mg Supplement (Magnesium), 500 MG PO BID Mirtazapine (Mirtazapine), 1 TAB PO HS Multivitamin (Multivitamin), 1 TAB PO DAILY Omeprazole (Prilosec), 20 MG PO QAM Oxcarbazepine (Trileptal), 300 MG PO AMHS Potassium Gluconate (Hm Potassium), 1 TAB PO BID Probiotic Product (Probiotic), 1 CAP PO DAILY Rifaximin (Xifaxan), 550 MG PO BID Sertraline HCl (Sertraline HCl), 25 MG PO DAILY Topiramate (Topamax), 50 MG PO BID Topiramate (Topamax ), 25 MG PO BID Vitamin A (Vitamin A), 1 CAP PO QAM Zinc Gluconate (Zinc), 50 MG PO BID Scheduled PRN Albuterol Hfa (Ventolin Hfa), 2-4 PUFFS INH Q6H PRN for Shortness of Breath Benzonatate (Benzonatate), 1 CAP PO TID PRN for Cough Dextromethorphan Polistirex (Delsym), 10 ML PO Q8 PRN for Cough Oxycodone HCl (Oxycodone HCl), 10 MG PO Q8H PRN for Pain Rizatriptan Benzoate (Maxalt), 10 MG PO DIRECTED PRN for Migraine Saline ([place] Nasal [place]), 2 SPRAYS NA Q1H PRN for dry nose Allergies Coded Allergies: Amoxicillin (Verified Allergy, Intermediate, HIVES; Has tolerated cephalosporins (Rocephin, Ceftin,Keflex, 07/14/17) Azithromycin (Verified Allergy, Intermediate, HIVES, 07/14/17) Baclofen (Verified Allergy, Intermediate, RASH, 07/14/17) Butalbital (Verified Allergy, Intermediate, HIVES, 07/14/17) Clarithromycin (Verified Allergy, Intermediate, RASH, 07/14/17) Dicyclomine (Verified Allergy, Intermediate, HIVES, 07/14/17) HIVES Penicillins (Verified Allergy, Intermediate, RASH; has tolerated cephs ( Rocephin, Keflex, Ceftin), 07/14/17) PT STATES SHE GETS WELTS FROM CIPRO,LEVAQUIN ALLERGY PER DR ROBLES Tetracyclines (Verified Allergy, Intermediate, DOXYCYCLINE-HIVES, 07/14/17) Sulindac (Verified Allergy, Mild, ALLERGY LISTED "CLONDORAL"--HIVES, ) Adhesives (Verified Allergy, Unknown, RASH, DUODERM=RED,ITCHY, 07/14/17) PLASTIC TAPE IS OK!!! DUODERM=RED,ITCHY Clavulanic Acid (Unverified Allergy, Unknown, diahrea , 07/14/17) Metronidazole (Verified Allergy, Unknown, SEIZURE, 07/14/17) Tramadol (Verified Allergy, Unknown, SEIZURES, 07/14/17) Metoclopramide (Verified Adverse Reaction, Severe, SEIZURES, 07/14/17) Blueberry (Verified Adverse Reaction, Mild, STOMACH PAIN, 07/14/17) Furosemide (Verified Adverse Reaction, Unknown, HIVES, 07/14/17) Physical Exam Vital Signs Date Time Temp Pulse Resp B/P (MAP) Pulse Ox O2 Delivery O2 Flow Rate FiO2 07/14/17 02:15 36.5 88 20 158/70 100 Room Air Physical Exam GENERAL: Patient is chronically unwell-appearing and in no acute distress. EYES: No scleral icterus, unremarkable pupils. ENT: Mucous membranes moist, no nasal congestion. NECK: No masses appreciated, no meningismus, trachea is midline. RESPIRATORY: No dyspnea. Clear to auscultation and equal bilaterally. No wheeze , no rhonchi. CARDIOVASCULAR: Regular rate and rhythm. No murmurs, rubs, gallops appreciated. GASTROINTESTINAL: Abdomen soft, nontender, no peritonitis. Bowel sounds positive. No masses appreciated. BACK: No midline tenderness, no CVA tenderness EXTREMITIES: Tenderness to palpation to medial right ankle, old bruising in the area. Mild right ankle swelling. NEUROLOGIC: Alert and oriented, no acute motor or sensory deficits, no focal weakness, cranial nerves grossly intact. SKIN: No rash, no jaundice, no diaphoresis. Medical Decision & Procedures ER Provider Diagnostic Interpretation: Radiology results and stated below per my review and radiologist interpretation: Right Ankle XR: Three view: Mild osteopenia. No fracture. No dislocation. Possible soft tissue swelling to the medial right ankle. US VENOUS RIGHT LOWER EXTREMITY: No evidence of deep vein thrombosis. Radiologist: Eagle Camejo MD Study ready at 03:21 and initial results transmitted at 03:35 ED Course 0218: The patient was evaluated in room B7. A complete history and physical exam was performed. 0328: I reassessed the patient at this time. She states that she still feels the need to have further laboratory work done, though since the patient is completely awake, alert, and oriented, I do not feel this is warranted. I discussed the results and treatment plan with the patient. I answered all pertaining questions that she had. She expressed understanding and verbalized agreement. The patient will be discharged home. Medical Decision Differential: Fracture, Dislocation, Cellulitis, Septic Joint, Ligamentous Injury, Effusion, DVT, amongst other pathologies entertained. 51 yr old female arrives for evaluation of right ankle pain and swelling. Looks chronic in nature and already wearing boot for this which she notes was due to injury when primary care coordinator was transporting her. Questionable soft tissue swelling on imaging though no fracture/dislocation. She recently spent time in hospital thus US which revealed no DVT either. Patient adamantly requesting me check her ammonia level. As she is awake, alert, oriented without encephalopathy nor is she having any difficulty answering questions and clearly remembers staff, I do not feel that she requires this to be done. She is a bit upset with me for refusing to check this lab but it is in no way clinically indicated on an emergency basis. Patient goes on to admit she has not been taking Lactulose but as she is not encephalopathic at this time there is no reason to check her ammonia in ED. I have advised she discuss this, as well as her chronic pain issues, with her primary care provider. Head Trauma GCS Score: 15 Medication Reconcilliation Current Medication List: was personally reviewed by me Blood Pressure Screening Patient's blood pressure: Elevated blood pressure Blood pressure disposition: Referred to PCP Impression Primary Impression: Pain, joint, ankle, right Scribe Attestation The scribe's documentation has been prepared under my direction and personally reviewed by me in its entirety. I confirm that the note above accurately reflects all work, treatment, procedures, and medical decision making performed by me. Departure Information Dispostion Home / Self-Care Referrals Olena Little DO (PCP) Forms HOME CARE DOCUMENTATION FORM, IMPORTANT VISIT INFORMATION, WORK / SCHOOL INSTRUCTIONS Patient Instructions [facility] Additional Instructions Please follow up with your primary care provider for further evaluation of your ankle pain. Further imaging and testing may be necessary. Return if increased pain, swelling of lower leg, rash, or other concerning symptoms develop. Your Ultrasound did not reveal any evidence of blood clots in the veins.
--- NOTE | 2017-07-14 06:35 | DIAGNOSTIC IMAGING REPORT ---
R VENOUS DOPP LOWER EXT UNILAT CLINICAL HISTORY: right lower leg pain with ankle swelling, recent hospitalization pain. Edema. TECHNIQUE: Venous Doppler COMPARISON STUDY: None FINDINGS: Normal study IMPRESSION: Normal study The above report was generated using voice recognition software. It may contain grammatical, syntax or spelling errors. Electronically signed by: Kenroy Yates M.D. 07/14/2017 6:33 AM Dictated Date/Time: 07/14/2017 6:33 AM
--- NOTE | 2017-07-14 06:46 | DIAGNOSTIC IMAGING REPORT ---
R ANKLE MIN 3 VIEWS ROUTINE CLINICAL HISTORY: right medial ankle pain pain. Edema. COMPARISON: None. DISCUSSION: Generalized osteoporosis. Generalized degenerative and postoperative change. Old avulsion tip medial malleolus. Potential acute cortical fracture anterior talus. Mild ossification Achilles tendon insertion. IMPRESSION: Generalized osteoporosis and degenerative change. Soft tissue edema. Nondisplaced cortical fracture anterior superior talus. The above report was generated using voice recognition software. It may contain grammatical, syntax or spelling errors. Electronically signed by: Kenroy Yates M.D. 07/14/2017 6:45 AM Dictated Date/Time: 07/14/2017 6:44 AM
[2017-07-14] MEDS ORDERED: OXYC1TAB3 PO (16:45)
[2017-07-14] MEDS ORDERED: ONDA8TAB62 SL (16:45)
[2017-07-14] MEDS ORDERED: SPIR25TA PO (16:45)
[2017-07-14] MEDS ORDERED: HYDR50CA PO (16:45)
[2017-07-14] MEDS ORDERED: SERT50TA PO (16:45)
[2017-07-14] MEDS ORDERED: INSDGIPEN SC (16:45)
== END 2017-07-14 03:42 | disposition home or self-care (01) ==
LOC: C.EDB 02:14
DX: M25.571 Pain in right ankle and joints of right foot (principal); J45.909 Unspecified asthma, uncomplicated; F31.30 Bipolar disorder, current episode depressed, mild or moderate severity, unspecified; F60.3 Borderline personality disorder; K74.60 Unspecified cirrhosis of liver; E11.43 Type 2 diabetes mellitus with diabetic autonomic (poly)neuropathy; R01.1 Cardiac murmur, unspecified; E87.1 Hypo-osmolality and hyponatremia; E03.9 Hypothyroidism, unspecified; F32.3 Major depressive disorder, single episode, severe with psychotic features; D46.9 Myelodysplastic syndrome, unspecified; D61.818 Other pancytopenia; K27.9 Peptic ulcer, site unspecified, unspecified as acute or chronic, without hemorrhage or perforation; K76.6 Portal hypertension; G40.909 Epilepsy, unspecified, not intractable, without status epilepticus; Z90.89 Acquired absence of other organs; Z90.49 Acquired absence of other specified parts of digestive tract; Z90.710 Acquired absence of both cervix and uterus; Z96.9 Presence of functional implant, unspecified; Z79.899 Other long term (current) drug therapy; Z79.4 Long term (current) use of insulin; Z88.0 Allergy status to penicillin; Z88.1 Allergy status to other antibiotic agents; Z88.8 Allergy status to other drugs, medicaments and biological substances; Z88.6 Allergy status to analgesic agent; Z91.048 Other nonmedicinal substance allergy status; Z88.5 Allergy status to narcotic agent; Z91.018 Allergy to other foods

== ENCOUNTER 2017-07-14 15:36 | Emergency (ER) | payer BC, OTHER ==
[~2017-07-14] VITALS: Ht 165.1 cm; Wt 93.0 kg
[~2017-07-14 15:36] MED LIST changes: -ASCO10003 PO; -BENZ100C7 PO; -CHOL100010 PO; -CRAN200C PO; -LEVE100021 PO; -LEVO75TA5 PO; -MAGN500T4 PO; -MISCCAP80 PO; -MULT-506 PO; -OXCA300T PO; -PRLSR20 PO; -RIFA550T2 PO; -RIZA10TA18 PO; -TOPI25TA99 PO; -TOPI50TA16 PO; -VITA80005 PO; -VNTHFA/IN INH; -ZINC1TAB PO
[2017-07-14 15:42] VITALS: TEMP 37.3; Ht 165.1 cm; Wt 93.0 kg
[2017-07-14 16:37] LABS: BASO % 0.8 %; BASO ABS # 0.03 K/uL (0-0.2); EOS % 3.8 %; EOS ABS # 0.14 K/uL (0-0.5); HEMATOCRIT 32.5 % (37-47); HEMOGLOBIN 11.7 g/dL (12.0-16.0); IG# 0.01 K/uL (0.00-0.02); LYMPH % 30.1 %; LYMPH ABS # 1.11 K/uL (1.2-3.4); MEAN CELL VOLUME 96.4 fL (80-100); MEAN CORPUSCULAR HEMOGLOBIN 34.7 pg (25-34); MEAN PLATELET VOLUME 9.3 fL (7.4-10.4); MONO % 8.9 %; MONO ABS # 0.33 K/uL (0.11-0.59); NEUT % 56.1 %; NEUT ABS # 2.07 K/uL (1.4-6.5); PLATELET COUNT 108 K/uL (130-400); RED CELL DISTRIBUTION WIDTH CV 14.6 % (11.5-14.5); RED CELL DISTRIBUTION WIDTH SD 50.7 fL (36.4-46.3); WHITE BLOOD COUNT 3.69 K/uL (4.8-10.8)
[2017-07-14 16:47] LABS: INR 1.2 (0.9-1.1); PTT PATIENT 29.1 SECONDS (21.0-31.0)
[2017-07-14 16:56] LABS: CALCIUM 7.9 mg/dl (8.5-10.1); CREATININE 0.64 mg/dl (0.60-1.20); POTASSIUM 3.7 mmol/L (3.5-5.1)
[2017-07-14 16:58] LABS: TOTAL PROTEIN 6.4 gm/dl (6.4-8.2)
--- NOTE | 2017-07-14 17:11 | EMERGENCY ROOM VISIT NOTE ---
History Report prepared by Broderick: Shakira Freeman Under the Supervision of: Dr. Hemant Willard D.O. First contact with patient: 16:01 Chief Complaint: REFERRED BY DOCTOR Stated Complaint: REFERRED BY DR LITTLE FOR AMMONIA LEVEL History of Present Illness The patient is a 51 year old female who presents to the Emergency Room with complaints of persistent confusion starting this morning. The patient was sent to the ED for a check of her ammonia level. The patient's home health nurse thought that the patient was more confused this morning. The nurse recommended to the patient's PCP that the patient have her ammonia level checked. The patient's notes that the patient seems to be at baseline. She reports nausea and headache. She is currently on pain medications after a hip surgery. She denies any falls recently. She is taking her lactulose. She last took it this morning. Her ammonia level was last checked 4 weeks ago. Source of History: patient, spouse/significant other Onset: this morning Position: other (mental status) Quality: other (confusion) Timing: other (persistent) Associated Symptoms: + headache, + nausea Review of Systems See HPI for pertinent positives & negatives. A total of 10 systems reviewed and were otherwise negative. Past Medical & Surgical Medical Problems: (1) Asthma (2) Bipol I, Rec Epis (Or Current) Depressed, Unspecified (3) Borderline personality disorder (4) Cirrhosis (5) Closed right hip fracture (6) Diab Ashley Wo Comp Type Ii Or Nos/Not Uncontrolled (7) Diabetic gastroparesis (8) Heart murmur (9) History of hepatic encephalopathy (10) Hyponatremia (11) Hypothyroidism (12) Major depressive disorder with psychotic features (13) Migraines (14) Myelodysplastic syndrome (15) Pancytopenia (16) Peptic ulcer disease (17) Portal Hypertension (18) Seizure disorder (19) Suicidal ideation Surgical Problems: (1) H/O nasal septoplasty (2) History of appendectomy (3) History of cholecystectomy (4) History of hysterectomy (5) History of kyphoplasty (6) History of tonsillectomy (7) s/p spinal stimulator placement Family History Depression Hypertension Social History Smoking Status: Never Smoker Alcohol Use: none Drug Use: none Marital Status: Housing Status: lives with significant other Occupation Status: disabled Current/Historical Medications Scheduled Ascorbic Acid (Vitamin C), 1,000 MG PO DAILY Bumetanide (Bumex), 1 MG PO QAM Cefdinir (Omnicef), 300 MG PO Q12H Cholecalciferol (Vitamin D), 5,000 UNITS PO DAILY Cranberry (Vaccinium Macrocarp (Cranberry Extract), 1 CAP PO BID Hydroxyzine Pamoate (Vistaril), 50 MG PO HS Insulin Glargine (Lantus Solostar), 40 UNITS SC BID Insulin Lispro (Human) (Humalog Kwikpen), UNITS SC UD Lactulose (Chronulac), 30 ML PO BID Levetiracetam (Levetiracetam), 2,000 MG PO BID Levothyroxine Sodium (Levothyroxine Sodium), 75 MCG PO QAM Magnesium Oxide (Mg Supplement (Magnesium), 500 MG PO BID Mirtazapine (Mirtazapine), 1 TAB PO HS Multivitamin (Multivitamin), 1 TAB PO DAILY Omeprazole (Prilosec), 20 MG PO QAM Oxcarbazepine (Trileptal), 300 MG PO AMHS Probiotic Product (Probiotic), 1 CAP PO DAILY Rifaximin (Xifaxan), 550 MG PO BID Sertraline (Zoloft), 50 MG PO DAILY Spironolactone (Aldactone), 25 MG PO DAILY Topiramate (Topamax), 50 MG PO BID Topiramate (Topamax ), 25 MG PO BID Vitamin A (Vitamin A), 1 CAP PO QAM Zinc Gluconate (Zinc), 50 MG PO BID Scheduled PRN Albuterol Hfa (Ventolin Hfa), 2-4 PUFFS INH Q6H PRN for Shortness of Breath Benzonatate (Benzonatate), 1 CAP PO TID PRN for Cough Ondansetron Odt (Zofran Odt), 8 MG SL Q6H PRN for Nausea Oxycodone Ir (Roxicodone Ir), 5 MG PO Q6H PRN for Pain Rizatriptan Benzoate (Maxalt), 10 MG PO DIRECTED PRN for Migraine Allergies Coded Allergies: Amoxicillin (Verified Allergy, Intermediate, HIVES; Has tolerated cephalosporins (Rocephin, Ceftin,Keflex, 07/14/17) Azithromycin (Verified Allergy, Intermediate, HIVES, 07/14/17) Baclofen (Verified Allergy, Intermediate, RASH, 07/14/17) Butalbital (Verified Allergy, Intermediate, HIVES, 07/14/17) Clarithromycin (Verified Allergy, Intermediate, RASH, 07/14/17) Dicyclomine (Verified Allergy, Intermediate, HIVES, 07/14/17) HIVES Penicillins (Verified Allergy, Intermediate, RASH; has tolerated cephs ( Rocephin, Keflex, Ceftin), 07/14/17) PT STATES SHE GETS WELTS FROM CIPRO,LEVAQUIN ALLERGY PER DR ROBLES Tetracyclines (Verified Allergy, Intermediate, DOXYCYCLINE-HIVES, 07/14/17) Sulindac (Verified Allergy, Mild, ALLERGY LISTED "CLONDORAL"--HIVES, ) Adhesives (Verified Allergy, Unknown, RASH, DUODERM=RED,ITCHY, 07/14/17) PLASTIC TAPE IS OK!!! DUODERM=RED,ITCHY Clavulanic Acid (Unverified Allergy, Unknown, diahrea , 07/14/17) Metronidazole (Verified Allergy, Unknown, SEIZURE, 07/14/17) Tramadol (Verified Allergy, Unknown, SEIZURES, 07/14/17) Metoclopramide (Verified Adverse Reaction, Severe, SEIZURES, 07/14/17) Blueberry (Verified Adverse Reaction, Mild, STOMACH PAIN, 07/14/17) Furosemide (Verified Adverse Reaction, Unknown, HIVES, 07/14/17) Physical Exam Vital Signs Date Time Temp Pulse Resp B/P (MAP) Pulse Ox O2 Delivery O2 Flow Rate FiO2 07/14/17 17:25 80 123/69 93 07/14/17 15:42 37.3 84 18 134/68 98 Room Air Physical Exam GENERAL: Patient is awake, alert, and in no acute distress. Patient is resting comfortably and showing no signs of anxiety EYES: The conjunctivae are clear. The pupils are round and reactive. EARS, NOSE, MOUTH AND THROAT: The nose is without any evidence of any deformity. Mucous membranes are moist tongue is midline NECK: The neck is nontender and supple. RESPIRATORY: Normal respiratory effort is noted there is no evidence of wheezing rhonchi or rales CARDIOVASCULAR: Regular rate and rhythm noted to auscultation, systolic murmur suggested. GASTROINTESTINAL: The abdomen is soft. Bowel sounds are present in all quadrants. Abdomen is nontender MUSCULOSKELETAL/EXTREMITIES: There is no evidence of gross deformity full range of motion is noted in the hips and shoulders SKIN: There is pedal edema bilaterally. There was a wound dressing on the right foot, no signs of cellulitis proximally. NEUROLOGIC: Patient is at baseline according to . Medical Decision & Procedures Laboratory Results 07/14/17 16:25 Red Blood Count 3.37, Mean Corpuscular Volume 96.4, Mean Corpuscular Hemoglobin 34.7, Mean Corpuscular Hemoglobin Concent 36.0, Mean Platelet Volume 9.3, Neutrophils (%) (Auto) 56.1, Lymphocytes (%) (Auto) 30.1, Monocytes (%) (Auto) 8.9, Eosinophils (%) (Auto) 3.8, Basophils (%) (Auto) 0.8, Neutrophils # (Auto) 2.07, Lymphocytes # (Auto) 1.11, Monocytes # (Auto) 0.33, Eosinophils # (Auto) 0.14, Basophils # (Auto) 0.03 07/14/17 16:25 Test 07/14/17 16:25 White Blood Count 3.69 K/uL (4.8-10.8) Red Blood Count 3.37 M/uL (4.2-5.4) Hemoglobin 11.7 g/dL (12.0-16.0) Hematocrit 32.5 % (37-47) Mean Corpuscular Volume 96.4 fL (80-100) Mean Corpuscular Hemoglobin 34.7 pg (25-34) Mean Corpuscular Hemoglobin Concent 36.0 g/dl (32-36) Platelet Count 108 K/uL (130-400) Mean Platelet Volume 9.3 fL (7.4-10.4) Neutrophils (%) (Auto) 56.1 % Lymphocytes (%) (Auto) 30.1 % Monocytes (%) (Auto) 8.9 % Eosinophils (%) (Auto) 3.8 % Basophils (%) (Auto) 0.8 % Neutrophils # (Auto) 2.07 K/uL (1.4-6.5) Lymphocytes # (Auto) 1.11 K/uL (1.2-3.4) Monocytes # (Auto) 0.33 K/uL (0.11-0.59) Eosinophils # (Auto) 0.14 K/uL (0-0.5) Basophils # (Auto) 0.03 K/uL (0-0.2) RDW Standard Deviation 50.7 fL (36.4-46.3) RDW Coefficient of Variation 14.6 % (11.5-14.5) Immature Granulocyte % (Auto) 0.3 % Immature Granulocyte # (Auto) 0.01 K/uL (0.00-0.02) Prothrombin Time 12.3 SECONDS (9.0-12.0) Prothromb Time International Ratio 1.2 (0.9-1.1) Activated Partial Thromboplast Time 29.1 SECONDS (21.0-31.0) Partial Thromboplastin Ratio 1.1 Anion Gap 4.0 mmol/L (3-11) Est Creatinine Clear Calc Drug Dose 117.2 ml/min Estimated GFR () 119.7 Estimated GFR (Non- 103.3 BUN/Creatinine Ratio 27.3 (10-20) Calcium Level 7.9 mg/dl (8.5-10.1) Magnesium Level 1.9 mg/dl (1.8-2.4) Total Bilirubin 1.4 mg/dl (0.2-1) Direct Bilirubin 0.5 mg/dl (0-0.2) Aspartate Amino Transf (AST/SGOT) 66 U/L (15-37) Alanine Aminotransferase (ALT/SGPT) 54 U/L (12-78) Alkaline Phosphatase 245 U/L (45-117) Ammonia 71.0 umol/L (11-32) Total Protein 6.4 gm/dl (6.4-8.2) Albumin 3.0 gm/dl (3.4-5.0) Laboratory results per my review. Medications Administered Medications (Trade) Dose Ordered Sig/Danita Route Start Time Stop Time Status Last Admin Dose Admin Heparin Sodium (Porcine) (Heparin 100 Unit/ml 5ml Flush) 5 ml STK-MED ONCE .ROUTE 07/14/17 17:22 18 17:23 DC 07/14/17 17:22 5 ML ED Course 1606: The patient was evaluated in room A2. A complete history and physical examination were performed. 1705: Upon reevaluation, the patient is resting comfortably. I discussed the results and treatment plan with her and her . They verbalized agreement of the treatment plan. She was discharged home. Medical Decision Prior records/ancillary studies reviewed and summarized above. Nursing notes reviewed. Additional history obtained from . The patient's history was concerning for altered mental status. Differential diagnosis: Etiologies such as metabolic, infection, hypoglycemia, electrolyte abnormalities , cardiac sources, intracerebral event, toxicologic, neurologic, as well as others were entertained. The patient is a 51-year-old female who presents to the emergency department from home with complaints of altered mental status. The patient's significant other states that she is at her baseline mental status and I personally have taken care of this patient in the past and she appears to be at her baseline if not better. The patient was recently hospitalized for an injury to her lower extremity. The patient was at home and a home health nurse thought that the patient was more confused than usual. She was sent to the emergency department for outpatient labs. The patient had an elevated ammonia level but it is not as elevated as it has been on previous admissions. I discussed patient's laboratory results with her and her . She does have an ongoing urinary tract infection which she is taking an appropriate antibiotic for at this time. She was encouraged to continue all medications as prescribed and follow-up with her primary care physician as soon as possible. Otherwise she was encouraged to return to the emergency department immediately if symptoms change worsen or the need arises. Medication Reconcilliation Current Medication List: was personally reviewed by me Blood Pressure Screening Patient's blood pressure: Normal blood pressure Blood pressure disposition: Did not require urgent referral Impression Primary Impression: Altered mental status Scribe Attestation The scribe's documentation has been prepared under my direction and personally reviewed by me in its entirety. I confirm that the note above accurately reflects all work, treatment, procedures, and medical decision making performed by me. Departure Information Dispostion Home / Self-Care Referrals Olena Little DO (PCP) Forms HOME CARE DOCUMENTATION FORM, IMPORTANT VISIT INFORMATION, WORK / SCHOOL INSTRUCTIONS Patient Instructions ED Sang, [facility] Additional Instructions Continue all medications as prescribed. Follow-up with your family doctor as scheduled. Continue taking the antibiotic you were prescribed for the urinary tract infection. Problem Qualifiers Primary Impression: Altered mental status Altered mental status type: unspecified Qualified Codes: R41.82 - Altered mental status, unspecified
[2017-07-14 17:25] VITALS: BP 123/69; PULSE 80; O2SAT 93
[2017-07-17] MEDS ORDERED: CRAN200C PO (00:11)
[2017-07-17] MEDS ORDERED: OXCA300T PO (00:15)
[2017-07-17] MEDS ORDERED: TOPI25TA99 PO (06:30)
[2017-07-17] MEDS ORDERED: TOPI50TA16 PO (06:30)
[2017-07-17] MEDS ORDERED: LEVE100021 PO (06:31)
[2017-07-17] MEDS ORDERED: RIFA550T2 PO (09:22)
[2017-07-17] MEDS ORDERED: PRLSR20 PO (10:16)
[2017-07-17] MEDS ORDERED: VNTHFA/IN INH (10:23)
[2017-07-17] MEDS ORDERED: VITA80005 PO (11:26)
[2017-07-17] MEDS ORDERED: CHOL100010 PO (12:22)
[2017-07-17] MEDS ORDERED: BENZ100C7 PO (13:17)
[2017-07-17] MEDS ORDERED: MULT-506 PO (13:17)
[2017-07-17] MEDS ORDERED: ASCO10003 PO (13:17)
[2017-07-17] MEDS ORDERED: MAGN500T4 PO (13:17)
[2017-07-17] MEDS ORDERED: ZINC1TAB PO (13:24)
[2017-07-17] MEDS ORDERED: MISCCAP80 PO (14:56)
[2017-07-17] MEDS ORDERED: RIZA10TA18 PO (15:44)
[2017-07-17] MEDS ORDERED: HYDR50CA PO (16:45)
[2017-07-17] MEDS ORDERED: ONDA8TAB62 SL (16:45)
[2017-07-17] MEDS ORDERED: OXYC1TAB3 PO (16:45)
[2017-07-17] MEDS ORDERED: INSDGIPEN SC (16:45)
[2017-07-17] MEDS ORDERED: SPIR25TA PO (16:45)
[2017-07-17] MEDS ORDERED: SERT50TA PO (16:45)
[2017-07-17] MEDS ORDERED: LEVO75TA5 PO (16:49)
== END 2017-07-14 17:26 | disposition home or self-care (01) ==
LOC: C.EDB 15:38 → C.EDA 17:26
DX: R41.82 Altered mental status, unspecified (principal); J45.909 Unspecified asthma, uncomplicated; E11.9 Type 2 diabetes mellitus without complications; E03.9 Hypothyroidism, unspecified; R56.9 Unspecified convulsions; Z79.899 Other long term (current) drug therapy; Z88.1 Allergy status to other antibiotic agents; Z88.8 Allergy status to other drugs, medicaments and biological substances; Z88.0 Allergy status to penicillin; Z88.5 Allergy status to narcotic agent; Z91.018 Allergy to other foods

== ENCOUNTER 2017-07-17 20:25 | Emergency (ER) | payer BC, OTHER ==
[~2017-07-17] VITALS: Ht 165.1 cm; Wt 97.0 kg
[~2017-07-17 20:25] MED LIST changes: +ASCO10003 PO; +BENZ100C7 PO; +CHOL100010 PO; +CRAN200C PO; -DEXT30LI4 PO; -HPRIS5M SQ; +HYDR50CA PO; -LECI1CAP3 PO; +LEVE100021 PO; +LEVO75TA5 PO; -LUTE15CA PO; +MAGN500T4 PO; +MISCCAP80 PO; +MULT-506 PO; +ONDA8TAB62 SL; +OXCA300T PO; +OXYC1TAB3 PO; -POTA1TAB PO; +PRLSR20 PO; +RIFA550T2 PO; +RIZA10TA18 PO; -RXC5 PO; -SALI0.6510; -SERT1TAB88 PO; +SERT50TA PO; +SPIR25TA PO; +TOPI25TA99 PO; +TOPI50TA16 PO; +VITA80005 PO; +VNTHFA/IN INH; +ZINC1TAB PO
[2017-07-17 20:38] VITALS: TEMP 36.8; Ht 165.1 cm; Wt 97.0 kg
[2017-07-17 21:36] LABS: HEMOGLOBIN 10.2 g/dL (12.0-16.0); MEAN CELL VOLUME 97.6 fL (80-100); MEAN CORPUSCULAR HEMOGLOBIN 34.3 pg (25-34); MEAN CORPUSCULAR HGB CONC 35.2 g/dl (32-36); MEAN PLATELET VOLUME 9.7 fL (7.4-10.4); PLATELET COUNT 112 K/uL (130-400); RED CELL DISTRIBUTION WIDTH CV 15.5 % (11.5-14.5)
[2017-07-17 21:55] LABS: CREATININE 0.52 mg/dl (0.60-1.20); POTASSIUM 3.8 mmol/L (3.5-5.1)
[2017-07-17] MEDS ORDERED: LEVETIRACETAM IV 500 MG in DEXTROSE 5% 100ML 100 ML IV STA (22:02)
--- NOTE | 2017-07-17 22:15 | DIAGNOSTIC IMAGING REPORT ---
HEAD WITHOUT CONTRAST (CT) CLINICAL HISTORY: 51 years-old Female with head trauma, seizure. Acute head trauma with seizure TECHNIQUE: Multiple axial CT images of the head were obtained without contrast. A dose lowering technique was utilized adhering to the principles of ALARA. CT DOSE: 712.55 mGy.cm COMPARISON: CT head 04/12/2017. FINDINGS: No acute intracranial hemorrhage, midline shift, intracranial mass, hydrocephalus, territorial ischemia or abnormal extra-axial collection. Mild degree of ill-defined low-attenuation within the periventricular white matter is unchanged suggesting chronic microvascular ischemic changes. The calvarium is intact. Mild mucosal thickening with small air-fluid level involves the right sphenoid sinus. Soft tissues and orbits are unremarkable. Mastoid air cells now appear clear. IMPRESSION: No acute intracranial abnormality identified. The above report was generated using voice recognition software. It may contain grammatical, syntax or spelling errors. Electronically signed by: Deion Segura M.D. 07/17/2017 10:13 PM Dictated Date/Time: 07/17/2017 10:10 PM
[2017-07-17 22:33] VITALS: BP 140/59; PULSE 84; O2SAT 97
[2017-07-17] MEDS ORDERED: LACTULOSE SYRUP 20 GM/30 ML UDC PO STA (22:43)
[2017-07-17] MEDS ORDERED: ONDANSETRON INJ 2 MG/ML 2 ML VIAL IV STA (22:43)
--- NOTE | 2017-07-18 | EMERGENCY ROOM VISIT NOTE ---
History Report prepared by Broderick: Mc Clark Under the Supervision of: Dr. Aiden Nelson M.D. First contact with patient: 20:49 Chief Complaint: SEIZURE Stated Complaint: SEIZURE Nursing Triage Summary: patients states he was lifting a walker and accidentally "bumped " patient's head around 194. per patient complained of pain and started having " shaking". states patients arms began shaking and she wouldn't answer him. EMS states patient's arms were shaking in ambulance but patient remained awake . activity stopped prior to arrival to ED. patient states " I don't know what happened". no open areas or signs of injury noted to patient. History of Present Illness The patient is a 51 year old female who presents to the Emergency Room with complaints of an episode of seizure-like activity occurring tonight. Per , the patient had to use the bathroom tonight with a portable toilet. He notes that as the patient was raising the chair, he swung her walker around and accidentally hit her in the right jewish. He reports that the patient said that she felt funny, and then started having a convulsive seizure that lasted for about 15-20 minutes. He states that the patient did not seem to be responsive and did not vomit during her episode. He notes that the patient had a UTI last week and she said last night that she thought that she was developing a cold. The patient also complains of nausea. Source of History: patient, spouse/significant other () Onset: tonight Position: other (generalized) Quality: other (seizure-like activity) Timing: other (an episode) Associated Symptoms: + nausea, No vomiting Note: Per , the patient did not seem to be responsive during her episode. Review of Systems See HPI for pertinent positives & negatives. A total of 10 systems reviewed and were otherwise negative. Past Medical & Surgical Medical Problems: (1) Asthma (2) Bipol I, Rec Epis (Or Current) Depressed, Unspecified (3) Borderline personality disorder (4) Cirrhosis (5) Closed right hip fracture (6) Diab Ashley Wo Comp Type Ii Or Nos/Not Uncontrolled (7) Diabetic gastroparesis (8) Heart murmur (9) History of hepatic encephalopathy (10) Hyponatremia (11) Hypothyroidism (12) Major depressive disorder with psychotic features (13) Migraines (14) Murmur (15) Myelodysplastic syndrome (16) Pancytopenia (17) Peptic ulcer disease (18) Portal Hypertension (19) Seizure disorder (20) Suicidal ideation (21) UTI (urinary tract infection) Surgical Problems: (1) H/O nasal septoplasty (2) History of appendectomy (3) History of cholecystectomy (4) History of hysterectomy (5) History of kyphoplasty (6) History of tonsillectomy (7) s/p spinal stimulator placement Family History Depression Hypertension Social History Smoking Status: Never Smoker Alcohol Use: none Drug Use: none Marital Status: Housing Status: lives with significant other Occupation Status: disabled Current/Historical Medications Scheduled Ascorbic Acid (Vitamin C), 1,000 MG PO DAILY Cholecalciferol (Vitamin D), 5,000 UNITS PO DAILY Cranberry (Vaccinium Macrocarp (Cranberry Extract), 1 CAP PO BID Hydroxyzine Pamoate (Vistaril), 50 MG PO HS Insulin Glargine (Lantus Solostar), 40 UNITS SC BID Insulin Lispro (Human) (Humalog Kwikpen), 20 UNITS SC AC Lactulose (Chronulac), 20 ML PO BID Levetiracetam (Levetiracetam), 2,000 MG PO BID Levothyroxine Sodium (Levothyroxine Sodium), 75 MCG PO QAM Magnesium Oxide (Mg Supplement (Magnesium), 500 MG PO BID Mirtazapine (Mirtazapine), 1 TAB PO HS Multivitamin (Multivitamin), 1 TAB PO DAILY Omeprazole (Prilosec), 20 MG PO QAM Oxcarbazepine (Trileptal), 300 MG PO AMHS Probiotic Product (Probiotic), 1 CAP PO DAILY Rifaximin (Xifaxan), 550 MG PO BID Sertraline (Zoloft), 50 MG PO DAILY Spironolactone (Aldactone), 50 MG PO DAILY Topiramate (Topamax), 50 MG PO BID Topiramate (Topamax ), 25 MG PO BID Vitamin A (Vitamin A), 1 CAP PO QAM Zinc Gluconate (Zinc), 50 MG PO BID Scheduled PRN Albuterol Hfa (Ventolin Hfa), 2-4 PUFFS INH Q6H PRN for Shortness of Breath Benzonatate (Benzonatate), 1 CAP PO TID PRN for Cough Ondansetron Odt (Zofran Odt), 8 MG SL Q6H PRN for Nausea Oxycodone Ir (Roxicodone Ir), 5 MG PO Q6H PRN for Pain Rizatriptan Benzoate (Maxalt), 10 MG PO DIRECTED PRN for Migraine Allergies Coded Allergies: Amoxicillin (Verified Allergy, Intermediate, HIVES; Has tolerated cephalosporins (Rocephin, Ceftin,Keflex, 07/14/17) Azithromycin (Verified Allergy, Intermediate, HIVES, 07/14/17) Baclofen (Verified Allergy, Intermediate, RASH, 07/14/17) Butalbital (Verified Allergy, Intermediate, HIVES, 07/14/17) Clarithromycin (Verified Allergy, Intermediate, RASH, 07/14/17) Dicyclomine (Verified Allergy, Intermediate, HIVES, 07/14/17) HIVES Penicillins (Verified Allergy, Intermediate, RASH; has tolerated cephs ( Rocephin, Keflex, Ceftin), 07/14/17) PT STATES SHE GETS WELTS FROM CIPRO,LEVAQUIN [facility]ERGY PER DR ROBLES Tetracyclines (Verified Allergy, Intermediate, DOXYCYCLINE-HIVES, 07/14/17) Sulindac (Verified Allergy, Mild, ALLERGY LISTED "CLONDORAL"--HIVES, ) Adhesives (Verified Allergy, Unknown, RASH, DUODERM=RED,ITCHY, 07/14/17) PLASTIC TAPE IS OK!!! DUODERM=RED,ITCHY Clavulanic Acid (Unverified Allergy, Unknown, diahrea , 07/14/17) Metronidazole (Verified Allergy, Unknown, SEIZURE, 07/14/17) Tramadol (Verified Allergy, Unknown, SEIZURES, 07/14/17) Metoclopramide (Verified Adverse Reaction, Severe, SEIZURES, 07/14/17) Blueberry (Verified Adverse Reaction, Mild, STOMACH PAIN, 07/14/17) Furosemide (Verified Adverse Reaction, Unknown, HIVES, 07/14/17) Physical Exam Vital Signs Date Time Temp Pulse Resp B/P (MAP) Pulse Ox O2 Delivery O2 Flow Rate FiO2 07/17/17 22:33 84 20 140/59 97 Room Air 07/17/17 21:28 87 20 157/67 96 Room Air 07/17/17 20:43 91 07/17/17 20:38 36.8 88 18 142/82 98 Room Air Physical Exam GENERAL: Patient is in no acute distress. HEENT: No acute trauma, normocephalic atraumatic, mucous membranes moist, no nasal congestion, no scleral icterus, pupils equal, round, and reactive to light , tenderness to right lateral scalp with no laceration or hematoma. NECK: No stridor, no adenopathy, no meningismus, trachea is midline. LUNGS: Clear to auscultation bilaterally, no wheeze, no rhonchi, breath sounds equal. HEART: 2/6 systolic murmur with a regular rate and rhythm. ABDOMEN: Soft, nontender, bowel sounds positive, no hernias, no peritonitis. EXTREMITIES: No cyanosis or edema, full range of motion of all the joints without pain or difficulty, no signs for acute trauma. NEUROLOGIC: Oriented x 3, no acute motor or sensory deficits, no focal weakness. SKIN: No rash, no jaundice, no diaphoresis. Medical Decision & Procedures ER Provider Diagnostic Interpretation: Radiology results as stated below per my review and radiologist interpretation: HEAD WITHOUT CONTRAST (CT) FINDINGS: No acute intracranial hemorrhage, midline shift, intracranial mass, hydrocephalus, territorial ischemia or abnormal extra-axial collection. Mild degree of ill-defined low-attenuation within the periventricular white matter is unchanged suggesting chronic microvascular ischemic changes. The calvarium is intact. Mild mucosal thickening with small air-fluid level involves the right sphenoid sinus. Soft tissues and orbits are unremarkable. Mastoid air cells now appear clear. IMPRESSION: No acute intracranial abnormality identified. The above report was generated using voice recognition software. It may contain grammatical, syntax or spelling errors. Electronically signed by: Deion Segura M.D. 07/17/2017 10:13 PM Laboratory Results 07/17/17 21:20 07/17/17 21:20 Test 07/17/17 21:20 Red Blood Count 2.97 M/uL (4.2-5.4) Mean Corpuscular Volume 97.6 fL (80-100) Mean Corpuscular Hemoglobin 34.3 pg (25-34) Mean Corpuscular Hemoglobin Concent 35.2 g/dl (32-36) RDW Standard Deviation 53.0 fL (36.4-46.3) RDW Coefficient of Variation 15.5 % (11.5-14.5) Mean Platelet Volume 9.7 fL (7.4-10.4) Anion Gap 4.0 mmol/L (3-11) Est Creatinine Clear Calc Drug Dose 147.5 ml/min Estimated GFR () 128.2 Estimated GFR (Non- 110.6 BUN/Creatinine Ratio 23.8 (10-20) Calcium Level 8.0 mg/dl (8.5-10.1) Magnesium Level 1.9 mg/dl (1.8-2.4) Total Bilirubin 0.9 mg/dl (0.2-1) Aspartate Amino Transf (AST/SGOT) 60 U/L (15-37) Alanine Aminotransferase (ALT/SGPT) 60 U/L (12-78) Alkaline Phosphatase 271 U/L (45-117) Ammonia 117.8 umol/L (11-32) Total Protein 6.0 gm/dl (6.4-8.2) Albumin 3.0 gm/dl (3.4-5.0) Globulin 3.0 gm/dl (2.5-4.0) Albumin/Globulin Ratio 1.0 (0.9-2) Laboratory results reviewed by me. Medications Administered Medications (Trade) Dose Ordered Sig/Danita Route Start Time Stop Time Status Last Admin Dose Admin Levetiracetam 500 mg/Dextrose 105 ml @ 420 mls/hr NOW STAT IV 07/17/17 22:02 07/17/17 22:16 DC 07/17/17 22:02 420 MLS/HR Ondansetron HCl (Zofran Inj) 4 mg NOW STAT IV 07/17/17 22:43 07/17/17 22:45 DC 07/17/17 22:43 4 MG Lactulose (Chronulac Syrup) 30 gm NOW STAT PO 07/17/17 22:43 07/17/17 22:45 DC 07/17/17 22:43 30 GM Heparin Sodium (Porcine) (Heparin 100 Unit/ml 5ml Flush) 5 ml STK-MED ONCE .ROUTE 07/17/17 23:21 07/17/17 23:22 DC 07/17/17 23:21 5 ML ECG Per My Interpretation Indication: syncope Rate (beats per minute): 89 Rhythm: normal sinus Findings: other (LVH present, no ST elevation, no PVCs) ED Course 2049: The patient was evaluated in room A3. A complete history and physical exam was performed. 2201: Levetiracetam 500mg/Dextrose 105ml @ 420 mls/hr IV 3: Lactulose 30mg PO, Zofran Inj 4mg IV 2314: I reevaluated and updated the patient. 0: Reevaluated the patient. Discussed results and discharge instructions: she verbalized understanding and agreement. The patient is ready for discharge. Medical Decision Differential diagnoses include: pseudoseizure, seizure, head trauma, skull fracture, electrolyte abnormalities, infection, and intracranial bleed. There is a pancytopenia, this has been documented in the past. No significant electrolyte abnormality or kidney failure. There were a few liver enzyme elevations which have been noted in the past. Ammonia level was elevated but this is a chronic issue for her and today's value is not nearly as high as her numbers have been. Brain CT showed no acute bleed or mass-effect. EKG showed a sinus rhythm, no acute ischemia. On exam, there were no focal neurologic deficits. The patient was not toxic or febrile. The patient received IV Zofran for nausea, an ice pack was applied to the right scalp. She received a dose of IV Keppra and she was given a dose of oral lactulose. The patient looks well. She is awake and interactive. I am not sure if she truly had a seizure or if this may have been anxiety and pseudoseizure. Patient has been reassured. She is in no significant distress, she is not toxic. I think she can be discharged to continue her meds as before. If worsening, she can return. Head Trauma GCS Score: 15 Medication Reconcilliation Current Medication List: was personally reviewed by me Blood Pressure Screening Patient's blood pressure: Elevated blood pressure Blood pressure disposition: Elevated BP felt to be situational Impression Primary Impression: Head trauma Additional Impression: Seizure Scribe Attestation The scribe's documentation has been prepared under my direction and personally reviewed by me in its entirety. I confirm that the note above accurately reflects all work, treatment, procedures, and medical decision making performed by me. Departure Information Dispostion Home / Self-Care Referrals Olena Little DO (PCP) Forms HOME CARE DOCUMENTATION FORM, IMPORTANT VISIT INFORMATION Patient Instructions My [facility] Additional Instructions care and medications as before ice to the sore area to help the pain return if worsening lab testing and CT scan were all ok today Problem Qualifiers
== END 2017-07-17 23:40 | disposition home or self-care (01) ==
LOC: EDBD 20:25 → C.EDA 20:27
DX: S09.90XA Unspecified injury of head, initial encounter (principal); W22.8XXA Striking against or struck by other objects, initial encounter; Y92.019 Unspecified place in single-family (private) house as the place of occurrence of the external cause; R56.9 Unspecified convulsions; J45.909 Unspecified asthma, uncomplicated; F31.9 Bipolar disorder, unspecified; F60.3 Borderline personality disorder; E11.43 Type 2 diabetes mellitus with diabetic autonomic (poly)neuropathy; E03.9 Hypothyroidism, unspecified; G43.909 Migraine, unspecified, not intractable, without status migrainosus; D46.9 Myelodysplastic syndrome, unspecified; K27.9 Peptic ulcer, site unspecified, unspecified as acute or chronic, without hemorrhage or perforation; K76.6 Portal hypertension; Z79.4 Long term (current) use of insulin; Z79.899 Other long term (current) drug therapy; Z88.1 Allergy status to other antibiotic agents; Z88.0 Allergy status to penicillin; Z91.048 Other nonmedicinal substance allergy status; Z91.018 Allergy to other foods; Z88.8 Allergy status to other drugs, medicaments and biological substances

== ENCOUNTER 2017-07-20 15:07 | Emergency (ER) | payer BC, OTHER ==
[~2017-07-20 15:07] MED LIST changes: -BUME1TAB PO; -CEFD1CAP14 PO
[2017-07-20 15:11] VITALS: TEMP 36.7; Ht 165.1 cm
[2017-07-20] MEDS ORDERED: ONDANSETRON INJ 2 MG/ML 2 ML VIAL IV STA (15:51)
--- NOTE | 2017-07-20 15:56 | EMERGENCY ROOM VISIT NOTE ---
History Report prepared by Broderick: Kiersten Hernandez Under the Supervision of: Dr. Alexis Jones M.D. 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 Positive chills. Negative urinary symptoms. 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 A total of ten systems were reviewed and were otherwise negative. Past Medical & Surgical Medical Problems: (1) Asthma (2) Bipol I, Rec Epis (Or Current) Depressed, Unspecified (3) Borderline personality disorder (4) Cirrhosis (5) Closed right hip fracture (6) Diab Ashley Wo Comp Type Ii Or Nos/Not Uncontrolled (7) Diabetic gastroparesis (8) Heart murmur (9) History of hepatic encephalopathy (10) Hyponatremia (11) Hypothyroidism (12) Major depressive disorder with psychotic features (13) Migraines (14) Murmur (15) Myelodysplastic syndrome (16) Pancytopenia (17) Peptic ulcer disease (18) Portal Hypertension (19) Seizure disorder (20) Suicidal ideation (21) UTI (urinary tract infection) Surgical Problems: (1) H/O nasal septoplasty (2) History of appendectomy (3) History of cholecystectomy (4) History of hysterectomy (5) History of kyphoplasty (6) History of tonsillectomy (7) s/p spinal stimulator placement Family History Depression Hypertension Social History Smoking Status: Never Smoker Alcohol Use: none Drug Use: none Marital Status: Housing Status: lives with significant other Occupation Status: disabled Current/Historical Medications Scheduled Ascorbic Acid (Vitamin C), 1,000 MG PO DAILY Cholecalciferol (Vitamin D), 5,000 UNITS PO DAILY Cranberry (Vaccinium Macrocarp (Cranberry Extract), 1 CAP PO BID Hydroxyzine Pamoate (Vistaril), 50 MG PO HS Insulin Glargine (Lantus Solostar), 40 UNITS SC BID Insulin Lispro (Human) (Humalog Kwikpen), 20 UNITS SC AC Lactulose (Chronulac), 20 ML PO BID Levetiracetam (Levetiracetam), 2,000 MG PO BID Levothyroxine Sodium (Levothyroxine Sodium), 75 MCG PO QAM Magnesium Oxide (Mg Supplement (Magnesium), 500 MG PO BID Mirtazapine (Mirtazapine), 1 TAB PO HS Multivitamin (Multivitamin), 1 TAB PO DAILY Omeprazole (Prilosec), 20 MG PO QAM Oxcarbazepine (Trileptal), 300 MG PO AMHS Probiotic Product (Probiotic), 1 CAP PO DAILY Rifaximin (Xifaxan), 550 MG PO BID Sertraline (Zoloft), 50 MG PO DAILY Spironolactone (Aldactone), 50 MG PO DAILY Topiramate (Topamax), 50 MG PO BID Topiramate (Topamax ), 25 MG PO BID Vitamin A (Vitamin A), 1 CAP PO QAM Zinc Gluconate (Zinc), 50 MG PO BID Scheduled PRN Albuterol Hfa (Ventolin Hfa), 2-4 PUFFS INH Q6H PRN for Shortness of Breath Benzonatate (Benzonatate), 1 CAP PO TID PRN for Cough Ondansetron Odt (Zofran Odt), 8 MG SL Q6H PRN for Nausea Oxycodone Ir (Roxicodone Ir), 5 MG PO Q6H PRN for Pain Prochlorperazine Maleate (Compazine), 10 MG PO Q6H PRN for Nausea Rizatriptan Benzoate (Maxalt), 10 MG PO DIRECTED PRN for Migraine Allergies Coded Allergies: Amoxicillin (Verified Allergy, Intermediate, HIVES; Has tolerated cephalosporins (Rocephin, Ceftin,Keflex, 07/14/17) Azithromycin (Verified Allergy, Intermediate, HIVES, 07/14/17) Baclofen (Verified Allergy, Intermediate, RASH, 07/14/17) Butalbital (Verified Allergy, Intermediate, HIVES, 07/14/17) Clarithromycin (Verified Allergy, Intermediate, RASH, 07/14/17) Dicyclomine (Verified Allergy, Intermediate, HIVES, 07/14/17) HIVES Penicillins (Verified Allergy, Intermediate, RASH; has tolerated cephs ( Rocephin, Keflex, Ceftin), 07/14/17) PT STATES SHE GETS WELTS FROM CIPRO,LEVAQUIN ALLERGY PER DR ROBLES Tetracyclines (Verified Allergy, Intermediate, DOXYCYCLINE-HIVES, 07/14/17) Sulindac (Verified Allergy, Mild, ALLERGY LISTED "CLONDORAL"--HIVES, ) Adhesives (Verified Allergy, Unknown, RASH, DUODERM=RED,ITCHY, 07/14/17) PLASTIC TAPE IS OK!!! DUODERM=RED,ITCHY Clavulanic Acid (Unverified Allergy, Unknown, diahrea , 07/14/17) Metronidazole (Verified Allergy, Unknown, SEIZURE, 07/14/17) Tramadol (Verified Allergy, Unknown, SEIZURES, 07/14/17) Metoclopramide (Verified Adverse Reaction, Severe, SEIZURES, 07/14/17) Blueberry (Verified Adverse Reaction, Mild, STOMACH PAIN, 07/14/17) Furosemide (Verified Adverse Reaction, Unknown, HIVES, 07/14/17) Physical Exam Vital Signs Date Time Temp Pulse Resp B/P (MAP) Pulse Ox O2 Delivery O2 Flow Rate FiO2 07/20/17 19:05 81 18 127/66 96 07/20/17 17:14 81 07/20/17 17:11 82 18 122/61 95 Room Air 07/20/17 15:11 36.7 88 16 123/69 97 Room Air Physical Exam GENERAL: Awake, alert, well-appearing, NAD HENT: Normocephalic, atraumatic. EYES: Normal conjunctiva. Sclera non-icteric. NECK: Supple. No nuchal rigidity. FROM. RESPIRATORY: CTAB, no rhonchi, wheezing, crackles CARDIAC: RRR, no MRG ABDOMEN: Soft, NTND, BS+. Mild epigastric discomfort, nonsurgical abdomen MSK: No chest wall TTP, no LE edema NEURO: GCS 15, CN 2-12 intact, moves all 4s on command SKIN: No rash or jaundice noted. Medical Decision & Procedures ER Provider Diagnostic Interpretation: Radiology results as stated below per my review and radiologist interpretation: KUB CLINICAL HISTORY: ABDOMINAL PAIN/GI pain COMPARISON STUDY: No previous studies for comparison. FINDINGS: The soft tissues, psoas shadows, renal outlines and intestinal gas pattern appear normal. There is no evidence for bowel obstruction. No abnormal abdominal calcifications are seen. IMPRESSION: Normal study. The above report was generated using voice recognition software. It may contain grammatical, syntax or spelling errors. Electronically signed by: Kenroy Yates M.D. 07/20/2017 4:09 PM Laboratory Results 07/20/17 16:55 Red Blood Count 3.25, Mean Corpuscular Volume 98.2, Mean Corpuscular Hemoglobin 34.2, Mean Corpuscular Hemoglobin Concent 34.8, Mean Platelet Volume 9.6, Neutrophils (%) (Auto) 59.3, Lymphocytes (%) (Auto) 28.2, Monocytes (%) (Auto) 6.7, Eosinophils (%) (Auto) 4.9, Basophils (%) (Auto) 0.9, Neutrophils # (Auto) 2.76, Lymphocytes # (Auto) 1.31, Monocytes # (Auto) 0.31, Eosinophils # (Auto) 0.23, Basophils # (Auto) 0.04 07/20/17 16:55 Test 07/20/17 16:55 07/20/17 17:43 07/20/17 18:57 White Blood Count 4.65 K/uL (4.8-10.8) Red Blood Count 3.25 M/uL (4.2-5.4) Hemoglobin 11.1 g/dL (12.0-16.0) Hematocrit 31.9 % (37-47) Mean Corpuscular Volume 98.2 fL (80-100) Mean Corpuscular Hemoglobin 34.2 pg (25-34) Mean Corpuscular Hemoglobin Concent 34.8 g/dl (32-36) Platelet Count 113 K/uL (130-400) Mean Platelet Volume 9.6 fL (7.4-10.4) Neutrophils (%) (Auto) 59.3 % Lymphocytes (%) (Auto) 28.2 % Monocytes (%) (Auto) 6.7 % Eosinophils (%) (Auto) 4.9 % Basophils (%) (Auto) 0.9 % Neutrophils # (Auto) 2.76 K/uL (1.4-6.5) Lymphocytes # (Auto) 1.31 K/uL (1.2-3.4) Monocytes # (Auto) 0.31 K/uL (0.11-0.59) Eosinophils # (Auto) 0.23 K/uL (0-0.5) Basophils # (Auto) 0.04 K/uL (0-0.2) RDW Standard Deviation 55.2 fL (36.4-46.3) RDW Coefficient of Variation 15.5 % (11.5-14.5) Immature Granulocyte % (Auto) 0.0 % Immature Granulocyte # (Auto) 0.00 K/uL (0.00-0.02) Anion Gap 5.0 mmol/L (3-11) Estimated GFR () 124.4 Estimated GFR (Non- 107.3 BUN/Creatinine Ratio 26.5 (10-20) Calcium Level 8.1 mg/dl (8.5-10.1) Total Bilirubin 1.7 mg/dl (0.2-1) Direct Bilirubin 0.6 mg/dl (0-0.2) Aspartate Amino Transf (AST/SGOT) 65 U/L (15-37) Alanine Aminotransferase (ALT/SGPT) 64 U/L (12-78) Alkaline Phosphatase 274 U/L (45-117) Total Protein 6.7 gm/dl (6.4-8.2) Albumin 3.0 gm/dl (3.4-5.0) Lipase 85 U/L (73-393) Ammonia 52.8 umol/L (11-32) Bedside Glucose 80 mg/dl (70-90) Laboratory results reviewed by me Medications Administered Medications (Trade) Dose Ordered Sig/Danita Route Start Time Stop Time Status Last Admin Dose Admin Prochlorperazine Edisylate (Compazine Inj) 10 mg NOW STAT IV 07/20/17 16:46 07/20/17 16:48 DC 07/20/17 17:07 10 MG Sodium Chloride 250 ml @ 999 mls/hr Q16M STAT IV 07/20/17 17:00 07/20/17 17:15 DC 07/20/17 17:07 999 MLS/HR Fentanyl Citrate (Fentanyl Inj) 25 mcg NOW ONCE IV 07/20/17 17:15 07/20/17 17:16 DC 07/20/17 17:47 25 MCG Heparin Sodium (Porcine) (Heparin 100 Unit/ml 5ml Flush) 5 ml STK-MED ONCE .ROUTE 07/20/17 19:00 07/20/17 19:01 DC 07/20/17 19:00 5 ML ED Course 1540: The patient was evaluated in room B8. A complete history and physical exam was performed. 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 Positive chills. Negative urinary symptoms. Nursing notes reviewed. Ancillary studies and prior records reviewed. Differential diagnosis: Etiologies such as gastroenteritis, food borne illness, infections, appendicitis , diverticulitis, inflammatory bowel disease, obstruction, GI bleed, biliary pathology, as well as others were entertained. Patient was seen and evaluated at the bedside. Of note this is the patient's fourth or fifth visit in the last 1-2 weeks. Patient is complaining of some nausea. Patient states that she is not taking anything. Patient states her symptoms been ongoing for about 4-5 days acutely worse no vomiting. Patient also does complain of some lightheadedness. On exam the patient has a non- tender abdomen. Patient has stable vital signs. Patient had blood work completed along with an ammonia level and the patient was given IV fluids, fentanyl, and Compazine. Patient was reassessed and the patient was able tolerate p.o. Patient's blood work is fairly unchanged from prior. Patient's ammonia level is elevated and the patient was told to continue to take the lactulose. The patient was also told to return if she has any worsening symptoms. Patient does have a chronic and stable anemia. Patient does have elevated alk phos and T bili. Patient's alk phos T bili have been elevated in the past. She does have a history of cirrhosis. Patient does have low calcium she was told to replete through her diet or through supplements. Patient does have a initial blood glucose is 65. Patient was given some p.o. Powerade and was able to tolerate. A repeat blood sugar was checked. It was 67. Patient was given apple juice and crackers. Tolerated. Given that BG not downtrending believe she is safe jacquie d/c. I do not believe she requires any further evaluation or treatment at this time. The patient has fairly unchanged blood work compared to prior. Ammonia is improved compared to last visit. Given the patient's ammonia is elevated the patient is able to tolerate p.o. and the patient is not altered. Told to continue using lactulose. Patient was given strict follow-up, discharge, and return precautions. All questions were answered. Patient was deemed suitable for outpatient follow-up at this time. Patient agreed with the plan of care and was safely discharged home. Medication Reconcilliation Current Medication List: was personally reviewed by me Blood Pressure Screening Patient's blood pressure: Normal blood pressure Blood pressure disposition: Did not require urgent referral Impression Primary Impression: Lightheaded Additional Impressions: Nausea Anemia Hypocalcemia Scribe Attestation The scribe's documentation has been prepared under my direction and personally reviewed by me in its entirety. I confirm that the note above accurately reflects all work, treatment, procedures, and medical decision making performed by me. Departure Information Dispostion Home / Self-Care Prescriptions Prochlorperazine Maleate (COMPAZINE) 10 Mg Tab 10 MG PO Q6H Y for Nausea, #6 TAB Prov: Alexis Jones M.D. 07/20/17 Referrals No Doctor, Assigned (PCP) Patient Instructions ED Dizziness [facility], My [facility], Nausea Vomit Control Additional Instructions Please return to the emergency department if you have worsening or recurrent symptoms not amenable to at-home treatment. Please call for a follow-up appointment with her primary care physician. Please take your medications as prescribed. If you have other concerns and/or complaints please feel free to also call your primary care physician's office or return the ED for further evaluation, management, and treatment. You received narcotic or benzodiazepene medication while in the emergency room today. This is an addictive medication that may cause drowziness as well as constipation. Do not drive, operate heavy machinery, or drink alcohol under the influence of this medication. Take your medications as prescribed. Please do not use your antinausea medications all at once. You may take one but they need to give yourself 4 hours before trying a different one. You have been examined and treated today on an emergency basis only. This is not a substitute for, or an effort to provide, complete comprehensive medical care. It is impossible to recognize and treat all injuries or illnesses in a single emergency department visit. It is therefore important that you follow up closely with [facility], your PCP, and/or your specialist(s). Call as soon as possible for an appointment. Thank you for your time and consideration. I look forward to speaking with you again soon. Please don't hesitate to call us if you have any questions. Problem Qualifiers Additional Impressions: Anemia Anemia type: unspecified type Qualified Codes: D64.9 - Anemia, unspecified
--- NOTE | 2017-07-20 16:10 | DIAGNOSTIC IMAGING REPORT ---
KUB CLINICAL HISTORY: ABDOMINAL PAIN/GI pain COMPARISON STUDY: No previous studies for comparison. FINDINGS: The soft tissues, psoas shadows, renal outlines and intestinal gas pattern appear normal. There is no evidence for bowel obstruction. No abnormal abdominal calcifications are seen. IMPRESSION: Normal study. The above report was generated using voice recognition software. It may contain grammatical, syntax or spelling errors. Electronically signed by: Kenroy Yates M.D. 07/20/2017 4:09 PM Dictated Date/Time: 07/20/2017 4:09 PM
[2017-07-20] MEDS ORDERED: PROCHLORPERAZINE 5 MG/ML 2 ML VIAL IV STA (16:46)
[2017-07-20] MEDS ORDERED: SODIUM CHLORIDE 0.9% 250ML 250 ML IV STA (17:00)
[2017-07-20 17:04] LABS: BASO % 0.9 %; BASO ABS # 0.04 K/uL (0-0.2); EOS % 4.9 %; EOS ABS # 0.23 K/uL (0-0.5); HEMATOCRIT 31.9 % (37-47); HEMOGLOBIN 11.1 g/dL (12.0-16.0); LYMPH % 28.2 %; LYMPH ABS # 1.31 K/uL (1.2-3.4); MEAN CELL VOLUME 98.2 fL (80-100); MEAN CORPUSCULAR HEMOGLOBIN 34.2 pg (25-34); MEAN CORPUSCULAR HGB CONC 34.8 g/dl (32-36); MEAN PLATELET VOLUME 9.6 fL (7.4-10.4); MONO % 6.7 %; MONO ABS # 0.31 K/uL (0.11-0.59); NEUT % 59.3 %; NEUT ABS # 2.76 K/uL (1.4-6.5); PLATELET COUNT 113 K/uL (130-400); RED CELL DISTRIBUTION WIDTH CV 15.5 % (11.5-14.5); RED CELL DISTRIBUTION WIDTH SD 55.2 fL (36.4-46.3); WHITE BLOOD COUNT 4.65 K/uL (4.8-10.8)
[2017-07-20] MEDS ORDERED: FENTANYL CITRATE INJ 50 MCG/1 ML 2 ML VIAL IV ONE (17:15)
[2017-07-20 17:23] LABS: ALT/SGPT 64 U/L (12-78); AST/SGOT 65 U/L (15-37); BLOOD UREA NITROGEN 15 mg/dl (7-18); CALCIUM 8.1 mg/dl (8.5-10.1); CARBON DIOXIDE 25 mmol/L (21-32); CREATININE 0.57 mg/dl (0.60-1.20); GLUCOSE 65 mg/dl (70-99); LIPASE 85 U/L (73-393); POTASSIUM 3.6 mmol/L (3.5-5.1); SODIUM 145 mmol/L (136-145)
[2017-07-20 17:25] LABS: ALKALINE PHOSPHATASE 274 U/L (45-117); TOTAL PROTEIN 6.7 gm/dl (6.4-8.2)
[2017-07-20] MEDS ORDERED: PROC1TAB5 PO (18:03)
[2017-07-20 19:05] VITALS: BP 127/66; PULSE 81; O2SAT 96
== END 2017-07-20 19:06 | disposition home or self-care (01) ==
LOC: C.EDB 15:08
DX: R11.0 Nausea (principal); E83.51 Hypocalcemia; R42 Dizziness and giddiness; K74.60 Unspecified cirrhosis of liver; E11.43 Type 2 diabetes mellitus with diabetic autonomic (poly)neuropathy; E03.9 Hypothyroidism, unspecified; K27.9 Peptic ulcer, site unspecified, unspecified as acute or chronic, without hemorrhage or perforation; J45.909 Unspecified asthma, uncomplicated; F31.9 Bipolar disorder, unspecified; F60.3 Borderline personality disorder; D46.9 Myelodysplastic syndrome, unspecified; D64.9 Anemia, unspecified; K76.6 Portal hypertension; G40.909 Epilepsy, unspecified, not intractable, without status epilepticus; Z87.440 Personal history of urinary (tract) infections; Z90.49 Acquired absence of other specified parts of digestive tract; Z90.710 Acquired absence of both cervix and uterus; Z96.9 Presence of functional implant, unspecified; Z82.49 Family history of ischemic heart disease and other diseases of the circulatory system; Z81.8 Family history of other mental and behavioral disorders; Z79.4 Long term (current) use of insulin; Z79.899 Other long term (current) drug therapy; Z88.0 Allergy status to penicillin; Z88.1 Allergy status to other antibiotic agents; Z91.018 Allergy to other foods; Z88.8 Allergy status to other drugs, medicaments and biological substances; Z91.048 Other nonmedicinal substance allergy status

== ENCOUNTER 2017-07-22 14:14 | Emergency (ER) | payer BC, OTHER ==
[~2017-07-22] VITALS: Ht 165.1 cm; Wt 92.5 kg
[~2017-07-22 14:14] MED LIST changes: +PROC1TAB5 PO
[2017-07-22 14:21] VITALS: TEMP 36.9; Ht 165.1 cm; Wt 92.5 kg
[2017-07-22] MEDS ORDERED: PROCHLORPERAZINE 5 MG/ML 2 ML VIAL IV STA (15:10)
[2017-07-22] MEDS ORDERED: SODIUM CHLORIDE 0.9% 1000ML 1,000 ML IV ONE (15:15)
--- NOTE | 2017-07-22 15:15 | EMERGENCY ROOM VISIT NOTE ---
History First contact with patient: 15:00 Chief Complaint: NAUSEA Stated Complaint: PROLONGED NAUSEA Nursing Triage Summary: Pt presents with who reports "nausea that just won't quit. She tried to have some pudding and that didn't agree with her. Dr. Johns's ofc told her to come." Denies emesis. Pt reports generalized abd pain that also started today. History of Present Illness The patient is a 51 year old female who presents to the Emergency Room with complaints of intermittent nausea over the last several days. The patient has a history of chronic nausea. She has not actually had any vomiting. Her last bowel movement was today and reportedly normal. She denies any fever or chills. No urinary symptoms. Review of Systems 10 system review performed and negative unless noted in HPI or below Past Medical/Surgical History Medical Problems: (1) Asthma (2) Bipol I, Rec Epis (Or Current) Depressed, Unspecified (3) Borderline personality disorder (4) Cirrhosis (5) Closed right hip fracture (6) Diab Ashley Wo Comp Type Ii Or Nos/Not Uncontrolled (7) Diabetic gastroparesis (8) Heart murmur (9) History of hepatic encephalopathy (10) Hyponatremia (11) Hypothyroidism (12) Major depressive disorder with psychotic features (13) Migraines (14) Murmur (15) Myelodysplastic syndrome (16) Pancytopenia (17) Peptic ulcer disease (18) Portal Hypertension (19) Seizure disorder (20) Suicidal ideation (21) UTI (urinary tract infection) Surgical Problems: (1) H/O nasal septoplasty (2) History of appendectomy (3) History of cholecystectomy (4) History of hysterectomy (5) History of kyphoplasty (6) History of tonsillectomy (7) s/p spinal stimulator placement Family History Depression Hypertension Social History Smoking Status: Never Smoker Alcohol Use: none Drug Use: none Marital Status: Housing Status: lives with significant other Occupation Status: disabled Current/Historical Medications Scheduled Ascorbic Acid (Vitamin C), 1,000 MG PO QAM Cholecalciferol (Vitamin D), 5,000 UNITS PO QAM Cranberry (Vaccinium Macrocarp (Cranberry Extract), 1 CAP PO BID Hydroxyzine Pamoate (Vistaril), 50 MG PO HS Ibuprofen (Advil), 400 MG PO UD Insulin Glargine (Lantus Solostar), 40 UNITS SC BID Insulin Lispro (Human) (Humalog Kwikpen), 20 UNITS SC AC Lactulose (Chronulac), 15 ML PO QAM Levetiracetam (Levetiracetam), 2,000 MG PO BID Levothyroxine Sodium (Levothyroxine Sodium), 75 MCG PO QAM Magnesium Oxide (Mg Supplement (Magnesium), 500 MG PO BID Mirtazapine (Mirtazapine), 45 MG PO HS Multivitamin (Multivitamin), 1 TAB PO QAM Omeprazole (Prilosec), 20 MG PO QAM Oxcarbazepine (Trileptal), 300 MG PO BID Probiotic Product (Probiotic), 1 CAP PO QAM Prochlorperazine Maleate (Compazine), 10 MG PO Q6H Rifaximin (Xifaxan), 550 MG PO BID Sertraline (Zoloft), 100 MG PO QAM Spironolactone (Aldactone), 50 MG PO QAM Topiramate (Topamax), 50 MG PO BID Topiramate (Topamax ), 25 MG PO BID Vitamin A (Vitamin A), 1 CAP PO QAM Zinc Gluconate (Zinc), 50 MG PO BID [Tobradex Otic], 5 DROPS OTR TID Scheduled PRN Ondansetron Odt (Zofran Odt), 8 MG SL Q6H PRN for Nausea Oxycodone Ir (Roxicodone Ir), 5 MG PO Q6H PRN for Pain Rizatriptan Benzoate (Maxalt), 10 MG PO DIRECTED PRN for Migraine Physical Exam Vital Signs Date Time Temp Pulse Resp B/P (MAP) Pulse Ox O2 Delivery O2 Flow Rate FiO2 07/22/17 19:07 76 18 119/57 96 07/22/17 17:56 80 18 121/70 97 Room Air 07/22/17 16:03 82 18 136/65 95 Room Air 07/22/17 14:21 36.9 89 18 146/83 96 Room Air Physical Exam VITALS: Vitals are noted on the nurse's note and reviewed by myself. Vital signs stable. GENERAL: 51-year-old female, in no acute distress, nondiaphoretic, SKIN: The skin was without rashes, erythema, edema, or bruising. HEAD: Normocephalic atraumatic. MOUTH: Mucous membranes moist NECK: Supple without nuchal rigidity. No lymphadenopathy. Cervical spine is nontender. No JVD. HEART: Regular rate and rhythm without murmurs gallops or rubs. LUNGS: Clear to auscultation bilaterally without wheezes, rales or rhonchi. No accessory muscle use. ABDOMEN: Positive bowel sounds x 4.Soft, nontender, without organomegaly. No guarding or rebound tenderness. MUSCULOSKELETAL: No muscle atrophy, erythema, or edema noted. . Strength 5/5 throughout. NEURO: Patient was alert and oriented to person place and time. Normal sensation to touch. No focal neurological deficits. Medical Decision & Procedures ER Provider Diagnostic Interpretation: Chest/abdominal x-rays IMPRESSION: No evidence of bowel obstruction. No evidence of free air. Electronically signed by: Bran Hernandez M.D. 07/22/2017 4:41 PM Dictated Date/Time: 07/22/2017 4:40 PM The status of this report is Signed. Laboratory Results 07/22/17 15:53 Red Blood Count 3.00, Mean Corpuscular Volume 98.0, Mean Corpuscular Hemoglobin 34.7, Mean Corpuscular Hemoglobin Concent 35.4, Mean Platelet Volume 9.8, Neutrophils (%) (Auto) 59.4, Lymphocytes (%) (Auto) 28.8, Monocytes (%) (Auto) 6.3, Eosinophils (%) (Auto) 4.7, Basophils (%) (Auto) 0.8, Neutrophils # (Auto) 2.27, Lymphocytes # (Auto) 1.10, Monocytes # (Auto) 0.24, Eosinophils # (Auto) 0.18, Basophils # (Auto) 0.03 07/22/17 15:53 Test 07/22/17 15:53 07/22/17 17:34 White Blood Count 3.82 K/uL (4.8-10.8) Red Blood Count 3.00 M/uL (4.2-5.4) Hemoglobin 10.4 g/dL (12.0-16.0) Hematocrit 29.4 % (37-47) Mean Corpuscular Volume 98.0 fL (80-100) Mean Corpuscular Hemoglobin 34.7 pg (25-34) Mean Corpuscular Hemoglobin Concent 35.4 g/dl (32-36) Platelet Count 104 K/uL (130-400) Mean Platelet Volume 9.8 fL (7.4-10.4) Neutrophils (%) (Auto) 59.4 % Lymphocytes (%) (Auto) 28.8 % Monocytes (%) (Auto) 6.3 % Eosinophils (%) (Auto) 4.7 % Basophils (%) (Auto) 0.8 % Neutrophils # (Auto) 2.27 K/uL (1.4-6.5) Lymphocytes # (Auto) 1.10 K/uL (1.2-3.4) Monocytes # (Auto) 0.24 K/uL (0.11-0.59) Eosinophils # (Auto) 0.18 K/uL (0-0.5) Basophils # (Auto) 0.03 K/uL (0-0.2) RDW Standard Deviation 54.6 fL (36.4-46.3) RDW Coefficient of Variation 15.3 % (11.5-14.5) Immature Granulocyte % (Auto) 0.0 % Immature Granulocyte # (Auto) 0.00 K/uL (0.00-0.02) Anion Gap 3.0 mmol/L (3-11) Est Creatinine Clear Calc Drug Dose 136.0 ml/min Estimated GFR () 125.9 Estimated GFR (Non- 108.6 BUN/Creatinine Ratio 26.9 (10-20) Calcium Level 7.9 mg/dl (8.5-10.1) Total Bilirubin 1.5 mg/dl (0.2-1) Aspartate Amino Transf (AST/SGOT) 61 U/L (15-37) Alanine Aminotransferase (ALT/SGPT) 60 U/L (12-78) Alkaline Phosphatase 277 U/L (45-117) Ammonia 126.0 umol/L (11-32) Total Protein 6.4 gm/dl (6.4-8.2) Albumin 3.0 gm/dl (3.4-5.0) Globulin 3.4 gm/dl (2.5-4.0) Albumin/Globulin Ratio 0.9 (0.9-2) Lipase 71 U/L (73-393) Urine Color YELLOW Urine Appearance CLEAR (CLEAR) Urine pH 8.0 (4.5-7.5) Urine Specific [place] 1.020 (1.000-1.030) Urine Protein NEG (NEG) Urine Glucose (UA) NEG (NEG) Urine Ketones NEG (NEG) Urine Occult Blood NEG (NEG) Urine Nitrite NEG (NEG) Urine Bilirubin NEG (NEG) Urine Urobilinogen NEG (NEG) Urine Leukocyte Esterase SMALL (NEG) Urine WBC (Auto) 5-10 /hpf (0-5) Urine RBC (Auto) 0-4 /hpf (0-4) Urine Hyaline Casts (Auto) 0 /lpf (0-5) Urine Epithelial Cells (Auto) 10-20 /lpf (0-5) Urine Bacteria (Auto) NEG (NEG) Medications Administered Medications (Trade) Dose Ordered Sig/Danita Route Start Time Stop Time Status Last Admin Dose Admin Prochlorperazine Edisylate (Compazine Inj) 10 mg NOW STAT IV 07/22/17 15:10 07/22/17 15:13 DC 07/22/17 15:56 10 MG Sodium Chloride 1,000 ml @ 999 mls/hr Q1H1M ONCE IV 07/22/17 15:15 07/22/17 16:15 DC 07/22/17 15:56 999 MLS/HR Lactulose (Chronulac Syrup) 30 gm ONE ONCE PO 07/22/17 17:15 07/22/17 17:16 DC 07/22/17 19:07 30 GM Rizatriptan Benzoate (Maxalt Tab) 10 mg ONE STAT PO 07/22/17 17:05 07/22/17 17:06 DC 07/22/17 17:05 10 MG Ondansetron HCl (Zofran Inj) 4 mg NOW STAT IV 07/22/17 17:19 07/22/17 17:20 DC 07/22/17 17:19 4 MG Heparin Sodium (Porcine) (Heparin 100 Unit/ml 5ml Flush) 5 ml STK-MED ONCE .ROUTE 07/22/17 18:50 07/22/17 18:51 DC 07/22/17 19:07 5 ML ED Course Patient was seen and examined Vital signs including blood pressure were reviewed medications list was verified with patient Labs were obtained, and a saline lock was established The patient was medicated with Compazine 10 mg IV and hydrated with 1 L of normal saline Upon reevaluation, the patient was complaining of a headache. She was medicated with Maxalt 10 mg po. She was also given a dose of Zofran. We thoroughly reviewed her workup. She voiced understanding. The patient was also seen and examined by my supervising physician who is in agreement with my plan. I reviewed discharge instructions the patient. They voiced understanding and had no further questions. Medical Decision Differential diagnosis: Chronic nausea, viral versus bacterial gastroenteritis, bowel obstruction, cirrhosis, pancreatitis This patient is a 51-year-old female presents to the emergency department with ongoing nausea. She has been seen in the emergency department for the same complaint multiple times. The patient did not seem significantly dehydrated on exam. Her LFTs are at baseline. The patient's ammonia level was elevated. This is treated with lactulose in the emergency department. Patient did not have any active vomiting in the emergency department. I believe she is stable to be discharged home with follow-up from her GI doctor. She will return to the ED with worsening symptoms. This chart was completed in part utilizing [employer] Speech Voice Recognition software. Attempts were made to minimize the grammatical errors, random word insertions, pronoun errors and incomplete sentences. Any formal questions or concerns about the content, text or information contained within the body of this dictation should be directly addressed to the provider for clarification. Medication Reconcilliation Current Medication List: was personally reviewed by me Blood Pressure Screening Patient's blood pressure: Elevated blood pressure Blood pressure disposition: Did not require urgent referral Impression Primary Impression: Nausea Departure Information Dispostion Home / Self-Care Condition GOOD Prescriptions Prochlorperazine Maleate (COMPAZINE) 10 Mg Tab 10 MG PO Q6H for Nausea, #15 TAB Prov: Rosa Cardenas PA-C 07/22/17 Referrals Olena Little DO (PCP) Patient Instructions My [facility] Additional Instructions You were evaluated in the emergency department today for nausea. Your ammonia level was elevated. Please take lactulose as prescribed Please follow-up with your primary care physician within the next 24-48 hours for a recheck Please also follow-up with your GI doctor. An appointment is going to be made for you tomorrow. You will be notified with the time. Please take Compazine 1 tab every 6 hours as needed for nausea I would follow a clear liquid diet for this evening such as broth, Gatorade and water. If you are feeling better tomorrow, you may advance to a bland diet. Please do not hesitate to return to the emergency department with any new, worsening or concerning symptoms
[2017-07-22 16:17] LABS: BASO % 0.8 %; BASO ABS # 0.03 K/uL (0-0.2); EOS % 4.7 %; EOS ABS # 0.18 K/uL (0-0.5); HEMATOCRIT 29.4 % (37-47); HEMOGLOBIN 10.4 g/dL (12.0-16.0); LYMPH % 28.8 %; MEAN CORPUSCULAR HEMOGLOBIN 34.7 pg (25-34); MEAN CORPUSCULAR HGB CONC 35.4 g/dl (32-36); MEAN PLATELET VOLUME 9.8 fL (7.4-10.4); MONO % 6.3 %; MONO ABS # 0.24 K/uL (0.11-0.59); NEUT % 59.4 %; NEUT ABS # 2.27 K/uL (1.4-6.5); PLATELET COUNT 104 K/uL (130-400); RED CELL DISTRIBUTION WIDTH CV 15.3 % (11.5-14.5); RED CELL DISTRIBUTION WIDTH SD 54.6 fL (36.4-46.3); WHITE BLOOD COUNT 3.82 K/uL (4.8-10.8)
[2017-07-22 16:28] LABS: CALCIUM 7.9 mg/dl (8.5-10.1); CREATININE 0.55 mg/dl (0.60-1.20); POTASSIUM 3.9 mmol/L (3.5-5.1)
[2017-07-22 16:32] LABS: TOTAL PROTEIN 6.4 gm/dl (6.4-8.2)
--- NOTE | 2017-07-22 16:43 | DIAGNOSTIC IMAGING REPORT ---
ABDOMEN 2VIEW W/PA CHEST RTN CLINICAL HISTORY: Nausea and vomiting COMPARISON STUDY: KUB dated 07/20/2017 FINDINGS: The erect chest reveals a right-sided A-Port catheter. There is an electronic device projected over left chest wall with electrodes which extend cephalad. No free air is visualized. There is equivocal mild pulmonary vascular congestion although the vascular markings may be accentuated due to the patient's large body habitus. There are no abnormally dilated loops of large or small bowel. There is no free air or decubitus view. There are surgical clips in the right upper quadrant consistent with a prior cholecystectomy. There are postsurgical changes involving the right hip and proximal femur. There are endplate erosive changes at the L4-5 level. IMPRESSION: No evidence of bowel obstruction. No evidence of free air. Electronically signed by: Bran Hernandez M.D. 07/22/2017 4:41 PM Dictated Date/Time: 07/22/2017 4:40 PM
[2017-07-22] MEDS ORDERED: LACTULOSE SYRUP 10 GM/15 ML BTL 473 ML PO STA (16:48)
[2017-07-22] MEDS ORDERED: RIZATRIPTAN BENZOATE 10 MG TAB PO STA (17:05)
[2017-07-22] MEDS ORDERED: LACTULOSE SYRUP 10 GM/15 ML BTL 473 ML PO ONE (17:15)
[2017-07-22] MEDS ORDERED: ONDANSETRON INJ 2 MG/ML 2 ML VIAL IV STA (17:19)
--- NOTE | 2017-07-22 17:46 | EMERGENCY ROOM VISIT NOTE ---
ED Visit Note First contact with patient: 15:00 The patient was seen and examined with Rosa Cardenas PA-C. I agree with the history, physical and findings. Please see the note for disposition and details.
[2017-07-22] MEDS ORDERED: IBUP-1050 PO (18:00)
[2017-07-22] MEDS ORDERED: TOBRADEX OTR (18:00)
[2017-07-22] MEDS ORDERED: RMR15 PO (18:00)
[2017-07-22] MEDS ORDERED: PROC1TAB5 PO (18:32)
[2017-07-22 19:07] VITALS: BP 119/57; PULSE 76; O2SAT 96
[2017-07-23] MEDS ORDERED: PROM25TA9 PO (17:57)
== END 2017-07-22 19:08 | disposition home or self-care (01) ==
LOC: C.EDB 14:15
DX: R11.0 Nausea (principal); J45.909 Unspecified asthma, uncomplicated; E11.43 Type 2 diabetes mellitus with diabetic autonomic (poly)neuropathy; E03.9 Hypothyroidism, unspecified; K27.9 Peptic ulcer, site unspecified, unspecified as acute or chronic, without hemorrhage or perforation; F31.5 Bipolar disorder, current episode depressed, severe, with psychotic features; K76.6 Portal hypertension; Z79.4 Long term (current) use of insulin; Z79.899 Other long term (current) drug therapy; Z81.8 Family history of other mental and behavioral disorders

== ENCOUNTER 2017-07-23 14:47 | Emergency (ER) | payer BC, OTHER ==
[~2017-07-23] VITALS: Ht 165.1 cm; Wt 97.6 kg
[~2017-07-23 14:47] MED LIST changes: +IBUP-1050 PO; +RMR15 PO; +TOBRADEX OTR
[2017-07-23 14:57] VITALS: TEMP 36.7; Ht 165.1 cm; Wt 97.6 kg
[2017-07-23] MEDS ORDERED: PROMETHAZINE HCL 25 MG SUPP PR STA (15:27)
--- NOTE | 2017-07-23 15:27 | EMERGENCY ROOM VISIT NOTE ---
History Report prepared by Broderick: Suma Santos Under the Supervision of: Deena DennisO. First contact with patient: 15:08 Chief Complaint: DIARRHEA Stated Complaint: ILLNESS Nursing Triage Summary: Pt arrives by BLS from home for c/o diarrhea and nausea. Some abd discomfort and "dry heaves" per pt. pt seen in ED several times for the same. Pt reports she is taking Phenergan, Compazine and Zofran at home with minimal relief. pt aaox3 upon arrival. History of Present Illness The patient is a 51 year old female who presents to the Emergency Room with complaints of diarrhea beginning the last couple of days. The patient also reports having severe nausea and states that she has been unable to eat last couple of days. She also reports trying to have fluids but that she ends up having more diarrhea and dry heaves. She states that she tried to take Compazine and Zofran for her nausea but that these did not help. The patient also reports having abdominal pain and the chills and states that she is unsure if her diarrhea was bloody. The patient reports that she been skipping her lactulose recently. She also reports that her feet have been tingly secondary to her diabetes. Pt denies headache, change in vision, fevers, chest pain, shortness of breath, vomiting, and pain with urination. Patient well-known to the emergency department, here frequently with similar symptoms. Patient with prior history of noncompliance also. Source of History: patient Onset: the last couple of days Position: other (generalized ) Quality: other (diarrhea ) Associated Symptoms: + chills, + nausea, + abdominal pain, No fevers Review of Systems See HPI for pertinent positives & negatives. A total of 10 systems reviewed and were otherwise negative. Past Medical & Surgical Medical Problems: (1) Asthma (2) Bipol I, Rec Epis (Or Current) Depressed, Unspecified (3) Borderline personality disorder (4) Cirrhosis (5) Closed right hip fracture (6) Diab Ashley Wo Comp Type Ii Or Nos/Not Uncontrolled (7) Diabetic gastroparesis (8) Heart murmur (9) History of hepatic encephalopathy (10) Hyponatremia (11) Hypothyroidism (12) Major depressive disorder with psychotic features (13) Migraines (14) Murmur (15) Myelodysplastic syndrome (16) Pancytopenia (17) Peptic ulcer disease (18) Portal Hypertension (19) Seizure disorder (20) Suicidal ideation (21) UTI (urinary tract infection) Surgical Problems: (1) H/O nasal septoplasty (2) History of appendectomy (3) History of cholecystectomy (4) History of hysterectomy (5) History of kyphoplasty (6) History of tonsillectomy (7) s/p spinal stimulator placement Family History Depression Hypertension Social History Smoking Status: Never Smoker Alcohol Use: none Drug Use: none Marital Status: Housing Status: lives with significant other Occupation Status: disabled Current/Historical Medications Scheduled Ascorbic Acid (Vitamin C), 1,000 MG PO QAM Cholecalciferol (Vitamin D), 5,000 UNITS PO QAM Cranberry (Vaccinium Macrocarp (Cranberry Extract), 1 CAP PO BID Hydroxyzine Pamoate (Vistaril), 50 MG PO HS Ibuprofen (Advil), 400 MG PO UD Insulin Glargine (Lantus Solostar), 40 UNITS SC BID Insulin Lispro (Human) (Humalog Kwikpen), 20 UNITS SC AC Lactulose (Chronulac), 15 ML PO QAM Levetiracetam (Levetiracetam), 2,000 MG PO BID Levothyroxine Sodium (Levothyroxine Sodium), 75 MCG PO QAM Magnesium Oxide (Mg Supplement (Magnesium), 500 MG PO BID Mirtazapine (Mirtazapine), 45 MG PO HS Multivitamin (Multivitamin), 1 TAB PO QAM Omeprazole (Prilosec), 20 MG PO QAM Oxcarbazepine (Trileptal), 300 MG PO BID Probiotic Product (Probiotic), 1 CAP PO QAM Prochlorperazine Maleate (Compazine), 10 MG PO Q6H Rifaximin (Xifaxan), 550 MG PO BID Sertraline (Zoloft), 100 MG PO QAM Spironolactone (Aldactone), 50 MG PO QAM Topiramate (Topamax), 50 MG PO BID Topiramate (Topamax ), 25 MG PO BID Vitamin A (Vitamin A), 1 CAP PO QAM Zinc Gluconate (Zinc), 50 MG PO BID [Tobradex Otic], 5 DROPS OTR TID Scheduled PRN Ondansetron Odt (Zofran Odt), 8 MG SL Q6H PRN for Nausea Oxycodone Ir (Roxicodone Ir), 5 MG PO Q6H PRN for Pain Promethazine Hcl (Phenergan), 25 MG PO Q8 PRN for Nausea Rizatriptan Benzoate (Maxalt), 10 MG PO DIRECTED PRN for Migraine Allergies Coded Allergies: Amoxicillin (Verified Allergy, Intermediate, HIVES; Has tolerated cephalosporins (Rocephin, Ceftin,Keflex, 07/22/17) Azithromycin (Verified Allergy, Intermediate, HIVES, 07/22/17) Baclofen (Verified Allergy, Intermediate, RASH, 07/22/17) Butalbital (Verified Allergy, Intermediate, HIVES, 07/22/17) Clarithromycin (Verified Allergy, Intermediate, RASH, 07/22/17) Dicyclomine (Verified Allergy, Intermediate, HIVES, 07/22/17) HIVES Penicillins (Verified Allergy, Intermediate, RASH; has tolerated cephs ( Rocephin, Keflex, Ceftin), 07/22/17) PT STATES SHE GETS WELTS FROM CIPRO,LEVAQUIN ALLERGY PER DR ROBLES Tetracyclines (Verified Allergy, Intermediate, DOXYCYCLINE-HIVES, 07/22/17) Sulindac (Verified Allergy, Mild, ALLERGY LISTED "CLONDORAL"--HIVES, ) Adhesives (Verified Allergy, Unknown, RASH, DUODERM=RED,ITCHY, 07/22/17) PLASTIC TAPE IS OK!!! DUODERM=RED,ITCHY Clavulanic Acid (Unverified Allergy, Unknown, diahrea , 07/22/17) Metronidazole (Verified Allergy, Unknown, SEIZURE, 07/22/17) Tramadol (Verified Allergy, Unknown, SEIZURES, 07/22/17) Metoclopramide (Verified Adverse Reaction, Severe, SEIZURES, 07/22/17) Blueberry (Verified Adverse Reaction, Mild, STOMACH PAIN, 07/22/17) Furosemide (Verified Adverse Reaction, Unknown, HIVES, 07/22/17) Physical Exam Vital Signs Date Time Temp Pulse Resp B/P (MAP) Pulse Ox O2 Delivery O2 Flow Rate FiO2 07/23/17 18:23 76 204/77 96 07/23/17 17:16 76 20 165/91 98 Room Air 07/23/17 15:21 82 07/23/17 14:57 36.7 83 16 138/67 96 Room Air Physical Exam GENERAL: alert, well appearing, well nourished, no distress, non-toxic, obesity EYE EXAM: normal conjunctiva, PERRL and EOM's grossly intact OROPHARYNX: no exudate, no erythema, lips, buccal mucosa, and tongue normal and mucous membranes are moist NECK: supple, no nuchal rigidity, no adenopathy, non-tender LUNGS: Clear to auscultation. Normal chest wall mechanics, no w/r/r HEART: no murmurs, S1 normal and S2 normal ABDOMEN: Obese abdomen, soft, non-tender, normo-active bowel sounds, no masses, no rebound or guarding. BACK: Back is symmetrical on inspection and there is no deformity, no midline tenderness, no CVA tenderness. SKIN: no rashes and no bruising UPPER EXTREMITIES: upper extremities are grossly normal. FROM, nml pulses. LOWER EXTREMITIES: No pitting edema. FROM, nml pulses. NEURO EXAM: Normal sensorium, cranial nerves II-XII intact, normal speech, no weakness of arms, no weakness of legs. Medical Decision & Procedures ER Provider Diagnostic Interpretation: Radiology results have been interpreted by the radiologist and reviewed by me. CT SCAN OF THE ABDOMEN AND PELVIS WITHOUT CONTRAST CLINICAL HISTORY: Abdominal pain, nausea, diarrhea COMPARISON STUDY: April 03, 2016 TECHNIQUE: CT scan of the abdomen and pelvis was performed from the lung bases to the proximal femurs. Images are reviewed in the axial, sagittal, and coronal planes. IV contrast was not administered for this examination. A dose lowering technique was utilized adhering to the principles of ALARA. CT DOSE: 973.33 mGycm FINDINGS: Lower chest: There are basilar atelectatic changes. Liver: The liver has a cirrhotic morphology. No focal masses are visualized in this noncontrast study. Gallbladder: Surgically absent Spleen: The spleen is enlarged measuring 18 cm Pancreas: Unremarkable. Adrenal glands: Unremarkable. Kidneys: There is a punctate nonobstructing lower pole left renal calculus. There is no hydronephrosis. No ureteral or bladder calculi are visualized. Bowel: There are no transition zones indicate bowel obstruction. There is no evidence of acute diverticulitis. By history the appendix is surgically absent. Peritoneum: There is no intraperitoneal free air or abdominal ascites. Vasculature: There is no evidence of abdominal aortic aneurysm. There are multiple large upper abdominal varices. Adenopathy: None. Pelvic viscera: The uterus appears surgically absent Skeletal structures: Postsurgical changes involve the right hip. The bones are osteopenic. There are postsurgical changes within the lumbar spine. There are endplate erosive changes at the L4-5 level. IMPRESSION: 1. Cirrhotic morphology of the liver with evidence of portal hypertension, splenomegaly, and upper abdominal varices 2. No evidence of bowel obstruction. No evidence of free air 3. Nonobstructing lower pole left renal calculus Electronically signed by: Bran Hernandez M.D. 07/23/2017 5:14 PM Dictated Date/Time: 07/23/2017 5:07 PM Laboratory Results 07/23/17 15:45 Red Blood Count 2.99, Mean Corpuscular Volume 98.3, Mean Corpuscular Hemoglobin 34.8, Mean Corpuscular Hemoglobin Concent 35.4, Mean Platelet Volume 9.9, Neutrophils (%) (Auto) 57.8, Lymphocytes (%) (Auto) 30.0, Monocytes (%) (Auto) 6.5, Eosinophils (%) (Auto) 4.9, Basophils (%) (Auto) 0.8, Neutrophils # (Auto) 2.14, Lymphocytes # (Auto) 1.11, Monocytes # (Auto) 0.24, Eosinophils # (Auto) 0.18, Basophils # (Auto) 0.03 07/23/17 15:45 Test 07/23/17 15:45 White Blood Count 3.70 K/uL (4.8-10.8) Red Blood Count 2.99 M/uL (4.2-5.4) Hemoglobin 10.4 g/dL (12.0-16.0) Hematocrit 29.4 % (37-47) Mean Corpuscular Volume 98.3 fL (80-100) Mean Corpuscular Hemoglobin 34.8 pg (25-34) Mean Corpuscular Hemoglobin Concent 35.4 g/dl (32-36) Platelet Count 94 K/uL (130-400) Mean Platelet Volume 9.9 fL (7.4-10.4) Neutrophils (%) (Auto) 57.8 % Lymphocytes (%) (Auto) 30.0 % Monocytes (%) (Auto) 6.5 % Eosinophils (%) (Auto) 4.9 % Basophils (%) (Auto) 0.8 % Neutrophils # (Auto) 2.14 K/uL (1.4-6.5) Lymphocytes # (Auto) 1.11 K/uL (1.2-3.4) Monocytes # (Auto) 0.24 K/uL (0.11-0.59) Eosinophils # (Auto) 0.18 K/uL (0-0.5) Basophils # (Auto) 0.03 K/uL (0-0.2) RDW Standard Deviation 55.0 fL (36.4-46.3) RDW Coefficient of Variation 15.4 % (11.5-14.5) Immature Granulocyte % (Auto) 0.0 % Immature Granulocyte # (Auto) 0.00 K/uL (0.00-0.02) Platelet Estimate DECREASED Anion Gap 3.0 mmol/L (3-11) Est Creatinine Clear Calc Drug Dose 132.7 ml/min Estimated GFR () 123.7 Estimated GFR (Non- 106.7 BUN/Creatinine Ratio 21.0 (10-20) Calcium Level 8.0 mg/dl (8.5-10.1) Total Bilirubin 1.6 mg/dl (0.2-1) Aspartate Amino Transf (AST/SGOT) 63 U/L (15-37) Alanine Aminotransferase (ALT/SGPT) 63 U/L (12-78) Alkaline Phosphatase 285 U/L (45-117) Total Protein 6.5 gm/dl (6.4-8.2) Albumin 3.1 gm/dl (3.4-5.0) Globulin 3.4 gm/dl (2.5-4.0) Albumin/Globulin Ratio 0.9 (0.9-2) Laboratory results per my review. Medications Administered Medications (Trade) Dose Ordered Sig/Danita Route Start Time Stop Time Status Last Admin Dose Admin Heparin Sodium (Porcine) (Heparin 100 Unit/ml 5ml Flush) 5 ml STK-MED ONCE .ROUTE 07/23/17 18:06 07/23/17 18:07 DC 07/23/17 18:12 5 ML ED Course 1515: The patient was evaluated in room B8. A complete history and physical exam was performed. 1527: Ordered Promethazine HCl 25 mg LA. 1730: Upon reevaluation, the patient is resting. She refused the Phenergan suppository and wants 25 mg tablets to take it at home. I discussed the findings and the treatment plan with the patient. She verbalizes agreement and understanding. She was discharged home. Medical Decision The patient is a 51 year old female who presents to the ED with complaints of diarrhea. Differential diagnosis: Etiologies such as appendicitis, diverticulitis, PUD, biliary pathology, UTI, pancreatitis, obstruction, mesenteric ischemia, aortic pathology, infections, inflammatory bowel disease, renal colic, as well as others were entertained. Patient appears in her usual state she is here frequently. Patient's labs stable compared to prior episodes, CT did not show any other acute pathology to explain the patient's diarrhea. I discussed with the patient that due to her chronic need for lactulose due to history of cirrhosis, she was going to have diarrhea daily. I do not suspect an acute infectious or ischemic etiology for her diarrhea at this time. Patient awake alert and oriented here, not confused , not showing signs of encephalopathy, ammonia level not rechecked. Her ammonia level has been elevated in the past and is typically related to her noncompliance with lactulose. Patient was able to tolerate oral fluids here. Patient refused Phenergan suppository, and asked for an increased dose of Phenergan tablets at home as at home she only has 12.5 mg. Discussed with patient importance of taking her prescribed medications daily and on time. Discussed follow-up with her family doctor as well as her GI specialist. Discussed symptoms to watch and return for, she verbalized understanding was agreeable with plan. I do not suspect bacteremia/sepsis. Patient with no other complaints. I do not suspect acute encephalopathy. I do not suspect a cardiac etiology or neuro etiology for her nausea. Medication Reconcilliation Current Medication List: was personally reviewed by me Blood Pressure Screening Patient's blood pressure: Elevated blood pressure Blood pressure disposition: Referred to PCP Impression Primary Impression: Diarrhea Additional Impressions: Noncompliance Malingering Nausea Scribe Attestation The scribe's documentation has been prepared under my direction and personally reviewed by me in its entirety. I confirm that the note above accurately reflects all work, treatment, procedures, and medical decision making performed by me. Departure Information Dispostion Home / Self-Care Prescriptions Promethazine Hcl (Phenergan) 25 Mg Tab 25 MG PO Q8 Y for Nausea, #14 TAB Prov: Trini Cutler DO 07/23/17 Referrals Olena Little DO (PCP) Forms HOME CARE DOCUMENTATION FORM, IMPORTANT VISIT INFORMATION, WORK / SCHOOL INSTRUCTIONS Patient Instructions My [facility] Additional Instructions Please take all of your medications daily as prescribed. Please sip clear liquids at frequent intervals to stay well-hydrated. Do not drink a large amount of fluids all at once as this can contribute to nausea. You may continue using your nausea medications at home. If you have any new or concerning symptoms, please return the emergency room. Problem Qualifiers Primary Impression: Diarrhea Diarrhea type: unspecified type Qualified Codes: R19.7 - Diarrhea, unspecified
[2017-07-23 16:02] LABS: HEMATOCRIT 29.4 % (37-47); HEMOGLOBIN 10.4 g/dL (12.0-16.0); MEAN CELL VOLUME 98.3 fL (80-100); MEAN CORPUSCULAR HEMOGLOBIN 34.8 pg (25-34); MEAN CORPUSCULAR HGB CONC 35.4 g/dl (32-36); RED CELL DISTRIBUTION WIDTH CV 15.4 % (11.5-14.5)
[2017-07-23 16:21] LABS: ALBUMIN 3.1 gm/dl (3.4-5.0); CREATININE 0.58 mg/dl (0.60-1.20); POTASSIUM 3.9 mmol/L (3.5-5.1)
[2017-07-23 16:23] LABS: TOTAL PROTEIN 6.5 gm/dl (6.4-8.2)
[2017-07-23 16:32] LABS: MEAN PLATELET VOLUME 9.9 fL (7.4-10.4); PLATELET COUNT 94 K/uL (130-400)
[2017-07-23 16:33] LABS: BASO % 0.8 %; BASO ABS # 0.03 K/uL (0-0.2); EOS % 4.9 %; EOS ABS # 0.18 K/uL (0-0.5); LYMPH ABS # 1.11 K/uL (1.2-3.4); MONO % 6.5 %; MONO ABS # 0.24 K/uL (0.11-0.59); NEUT % 57.8 %; NEUT ABS # 2.14 K/uL (1.4-6.5)
--- NOTE | 2017-07-23 17:16 | DIAGNOSTIC IMAGING REPORT ---
CT SCAN OF THE ABDOMEN AND PELVIS WITHOUT CONTRAST CLINICAL HISTORY: Abdominal pain, nausea, diarrhea COMPARISON STUDY: April 03, 2016 TECHNIQUE: CT scan of the abdomen and pelvis was performed from the lung bases to the proximal femurs. Images are reviewed in the axial, sagittal, and coronal planes. IV contrast was not administered for this examination. A dose lowering technique was utilized adhering to the principles of ALARA. CT DOSE: 973.33 mGycm FINDINGS: Lower chest: There are basilar atelectatic changes. Liver: The liver has a cirrhotic morphology. No focal masses are visualized in this noncontrast study. Gallbladder: Surgically absent Spleen: The spleen is enlarged measuring 18 cm Pancreas: Unremarkable. Adrenal glands: Unremarkable. Kidneys: There is a punctate nonobstructing lower pole left renal calculus. There is no hydronephrosis. No ureteral or bladder calculi are visualized. Bowel: There are no transition zones indicate bowel obstruction. There is no evidence of acute diverticulitis. By history the appendix is surgically absent. Peritoneum: There is no intraperitoneal free air or abdominal ascites. Vasculature: There is no evidence of abdominal aortic aneurysm. There are multiple large upper abdominal varices. Adenopathy: None. Pelvic viscera: The uterus appears surgically absent Skeletal structures: Postsurgical changes involve the right hip. The bones are osteopenic. There are postsurgical changes within the lumbar spine. There are endplate erosive changes at the L4-5 level. IMPRESSION: 1. Cirrhotic morphology of the liver with evidence of portal hypertension, splenomegaly, and upper abdominal varices 2. No evidence of bowel obstruction. No evidence of free air 3. Nonobstructing lower pole left renal calculus Electronically signed by: Bran Hernandez M.D. 07/23/2017 5:14 PM Dictated Date/Time: 07/23/2017 5:07 PM
[2017-07-23] MEDS ORDERED: PROM25TA9 PO (17:57)
[2017-07-23 18:23] VITALS: BP 204/77; PULSE 76; O2SAT 96
== END 2017-07-23 18:24 | disposition home or self-care (01) ==
LOC: EDBD 14:47 → C.EDB 14:49
DX: R19.7 Diarrhea, unspecified (principal); K27.9 Peptic ulcer, site unspecified, unspecified as acute or chronic, without hemorrhage or perforation; R11.0 Nausea; R10.9 Unspecified abdominal pain; R68.83 Chills (without fever); J45.909 Unspecified asthma, uncomplicated; F31.9 Bipolar disorder, unspecified; E11.9 Type 2 diabetes mellitus without complications; E03.9 Hypothyroidism, unspecified; K76.6 Portal hypertension; Z79.4 Long term (current) use of insulin; Z79.899 Other long term (current) drug therapy; Z88.0 Allergy status to penicillin; Z88.1 Allergy status to other antibiotic agents; Z88.8 Allergy status to other drugs, medicaments and biological substances; Z88.6 Allergy status to analgesic agent; Z91.018 Allergy to other foods; Z76.5 Malingerer [conscious simulation]

== ENCOUNTER 2017-07-26 14:13 | Inpatient (IN) | payer BC, OTHER ==
[~2017-07-26] VITALS: Ht 165.1 cm; Wt 94.0 kg
[~2017-07-26 14:13] MED LIST changes: -BENZ100C7 PO; -MIRT45TA3 PO; +PROC10TA PO; -PROC1TAB5 PO; -VNTHFA/IN INH
[2017-07-26] MEDS ORDERED: SODIUM CHLORIDE 0.9% 500ML 500 ML IV STA (14:42)
--- NOTE | 2017-07-26 14:49 | EMERGENCY ROOM VISIT NOTE ---
History First contact with patient: 14:35 Chief Complaint: NAUSEA Stated Complaint: NAUSEA AND VOMITING History of Present Illness The patient is a 51 year old female who presents to the Emergency Room for evaluation of persistent nausea. Patient notes 1 week worsening nausea. Loss of appetite associated with this. She is still taking most of her medicines but states she stopped taking her Lactulose several days ago. Still has been having diarrhea as well as her chronic diffuse abdominal pain. Nothing makes symptoms better. Eating makes symptoms worse. She notes worsening confusion and weakness. Received Emend IV yesterday by GI with temporary improvement overnight before they returned this morning. notes that she is more sleepy compared to her baseline. No fevers, chills, cp, sob, headache, neck pain, leg swelling, nor other symptoms. Review of Systems See HPI for pertinent positives & negatives. A total of 10 systems reviewed and were otherwise negative. Past Medical/Surgical History Medical Problems: (1) Asthma (2) Bipol I, Rec Epis (Or Current) Depressed, Unspecified (3) Borderline personality disorder (4) Cirrhosis (5) Closed right hip fracture (6) Diab Ashley Wo Comp Type Ii Or Nos/Not Uncontrolled (7) Diabetic gastroparesis (8) Heart murmur (9) History of hepatic encephalopathy (10) Hyponatremia (11) Hypothyroidism (12) Major depressive disorder with psychotic features (13) Migraines (14) Murmur (15) Myelodysplastic syndrome (16) Pancytopenia (17) Peptic ulcer disease (18) Portal Hypertension (19) Seizure disorder (20) Suicidal ideation (21) UTI (urinary tract infection) Surgical Problems: (1) H/O nasal septoplasty (2) History of appendectomy (3) History of cholecystectomy (4) History of hysterectomy (5) History of kyphoplasty (6) History of tonsillectomy (7) s/p spinal stimulator placement Family History Depression Hypertension Social History Smoking Status: Never Smoker Alcohol Use: none Drug Use: none Marital Status: Housing Status: lives with significant other Occupation Status: disabled Current/Historical Medications Scheduled Ascorbic Acid (Vitamin C), 1,000 MG PO QAM Cholecalciferol (Vitamin D), 5,000 UNITS PO QAM Cranberry (Vaccinium Macrocarp (Cranberry Extract), 1 CAP PO BID Hydroxyzine Pamoate (Vistaril), 50 MG PO HS Ibuprofen (Advil), 400 MG PO UD Insulin Glargine (Lantus Solostar), 40 UNITS SC BID Insulin Lispro (Human) (Humalog Kwikpen), 20 UNITS SC AC Lactulose (Chronulac), 15 ML PO QAM Levetiracetam (Levetiracetam), 2,000 MG PO BID Levothyroxine Sodium (Levothyroxine Sodium), 75 MCG PO QAM Magnesium Oxide (Mg Supplement (Magnesium), 500 MG PO BID Mirtazapine (Mirtazapine), 45 MG PO HS Multivitamin (Multivitamin), 1 TAB PO QAM Omeprazole (Prilosec), 20 MG PO QAM Oxcarbazepine (Trileptal), 300 MG PO BID Probiotic Product (Probiotic), 1 CAP PO QAM Prochlorperazine Maleate (Compazine), 10 MG PO Q6H Rifaximin (Xifaxan), 550 MG PO BID Sertraline (Zoloft), 100 MG PO QAM Spironolactone (Aldactone), 50 MG PO QAM Topiramate (Topamax), 50 MG PO BID Topiramate (Topamax ), 25 MG PO BID Vitamin A (Vitamin A), 1 CAP PO QAM Zinc Gluconate (Zinc), 50 MG PO BID [Tobradex Otic], 5 DROPS OTR TID Scheduled PRN Ondansetron Odt (Zofran Odt), 8 MG SL Q6H PRN for Nausea Oxycodone Ir (Roxicodone Ir), 5 MG PO Q6H PRN for Pain Rizatriptan Benzoate (Maxalt), 10 MG PO DIRECTED PRN for Migraine Physical Exam Vital Signs Date Time Temp Pulse Resp B/P (MAP) Pulse Ox O2 Delivery O2 Flow Rate FiO2 07/26/17 15:41 80 16 125/65 97 Room Air 07/26/17 14:18 36.7 86 20 141/78 99 Room Air Physical Exam GENERAL: Patient is chronically unwell appearing and in no acute distress. She is slow to answer and appears mildly encephalopathic. EYES: No scleral icterus, unremarkable pupils. ENT: Mucous membranes dry, no nasal congestion. NECK: No masses appreciated, no meningismus, trachea is midline. RESPIRATORY: No dyspnea. Clear to auscultation and equal bilaterally. No wheeze , no rhonchi. CARDIOVASCULAR: Regular rate and rhythm. No murmurs, rubs, gallops appreciated. GASTROINTESTINAL: Abdomen soft, nontender, no peritonitis. Bowel sounds positive. No masses appreciated. BACK: No midline tenderness, no CVA tenderness EXTREMITIES: Normal motion all extremities, no cyanosis, no edema. NEUROLOGIC: Awake, answers questions slowly, no acute motor or sensory deficits , no focal weakness, cranial nerves grossly intact. SKIN: No rash, no jaundice, no diaphoresis. Medical Decision & Procedures Laboratory Results 07/26/17 15:33 Red Blood Count 3.07, Mean Corpuscular Volume 97.1, Mean Corpuscular Hemoglobin 34.5, Mean Corpuscular Hemoglobin Concent 35.6 07/26/17 15:33 Test 07/26/17 15:33 White Blood Count 4.31 K/uL (4.8-10.8) Red Blood Count 3.07 M/uL (4.2-5.4) Hemoglobin 10.6 g/dL (12.0-16.0) Hematocrit 29.8 % (37-47) Mean Corpuscular Volume 97.1 fL (80-100) Mean Corpuscular Hemoglobin 34.5 pg (25-34) Mean Corpuscular Hemoglobin Concent 35.6 g/dl (32-36) RDW Standard Deviation 52.7 fL (36.4-46.3) RDW Coefficient of Variation 15.1 % (11.5-14.5) Prothrombin Time 13.0 SECONDS (9.0-12.0) Prothromb Time International Ratio 1.2 (0.9-1.1) Activated Partial Thromboplast Time 31.0 SECONDS (21.0-31.0) Partial Thromboplastin Ratio 1.2 Anion Gap 1.0 mmol/L (3-11) Est Creatinine Clear Calc Drug Dose 136.4 ml/min Estimated GFR () 125.9 Estimated GFR (Non- 108.6 BUN/Creatinine Ratio 17.3 (10-20) Calcium Level 7.9 mg/dl (8.5-10.1) Phosphorus Level 2.4 mg/dl (2.5-4.9) Magnesium Level 1.7 mg/dl (1.8-2.4) Total Bilirubin 1.2 mg/dl (0.2-1) Direct Bilirubin 0.5 mg/dl (0-0.2) Aspartate Amino Transf (AST/SGOT) 56 U/L (15-37) Alanine Aminotransferase (ALT/SGPT) 64 U/L (12-78) Alkaline Phosphatase 296 U/L (45-117) Ammonia 142.5 umol/L (11-32) Troponin I < 0.015 ng/ml (0-0.045) Total Protein 6.6 gm/dl (6.4-8.2) Albumin 3.1 gm/dl (3.4-5.0) Lipase 305 U/L (73-393) Medications Administered Medications (Trade) Dose Ordered Sig/Danita Route Start Time Stop Time Status Last Admin Dose Admin Sodium Chloride 500 ml @ 999 mls/hr Q31M STAT IV 07/26/17 14:42 07/26/17 15:12 DC 07/26/17 15:38 999 MLS/HR Ondansetron HCl (Zofran Inj) 4 mg NOW STAT IV 07/26/17 15:54 07/26/17 15:55 DC 07/26/17 16:00 4 MG Medical Decision Differential: Gastroenteritis, Food Borne, Esophageal Perforation, , Electrolyte Abnormality, Dehydration, Intraabdominal Infection, UTI/ Pyelonephritis, Bowel Obstruction, Biliary Pathology, amongst other pathology entertained. 51 yr old female with complex medical/psychiatric history with severe medical non-compliance issues who is very well known to me and department. She does appear to be more somnolent today than her baseline and a bit on dry side, both of which agree with (he is usually pretty good about knowing). She admits that persistent nausea over the last week has kept her from taking her lactulose, though notes she is taking her other medications. She is likely a bit encephalopathic beyond her just pretending to be confused. 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 She is not septic appearing nor does she appear in much distress. She is not vomiting though continues to complain of nausea. Given no vomiting and fact she is already a bit confused I made it clear I would not give her further sedative medications (phenergan, etc). She was given some IV fluids as she appears a bit dry along with IV zofran which she has tolerated previously and has QTC <500. At this point she has now been here 4 times the last few days for nausea, has been seen in clinic as well, along with a total of 8 visits to ED in just last 2 weeks post discharge from [facility]. We discussed fact that she is not doing well at home medically, nor compliance mcdaniel , and how much better she was doing in [facility]. Given fact she will just be back tomorrow and we have exhausted further work-up treatment in ED I have consulted hospitalist for further evaluation. Head Trauma GCS Score: 15 Medication Reconcilliation Current Medication List: was personally reviewed by me Blood Pressure Screening Patient's blood pressure: Normal blood pressure Impression Primary Impression: Dehydration Additional Impressions: Nausea Failure of outpatient treatment Hepatic encephalopathy Medical non-compliance Departure Information Referrals Olena Little DO (PCP) Patient Instructions My [facility] Health Problem Qualifiers
--- NOTE | 2017-07-26 15:02 | DIAGNOSTIC IMAGING REPORT ---
CHEST ONE VIEW PORTABLE CLINICAL HISTORY: Generalized Weakness dyspnea COMPARISON STUDY: 07/22/2017 FINDINGS: Mild stable cardiomegaly. Central catheter in superior vena cava. Mild prominence of pulmonary vasculature. Diaphragms are smooth. IMPRESSION: Mild stable cardiomegaly. No acute process. The above report was generated using voice recognition software. It may contain grammatical, syntax or spelling errors. Electronically signed by: Kenroy Yates M.D. 07/26/2017 3:00 PM Dictated Date/Time: 07/26/2017 3:00 PM
[2017-07-26] MEDS ORDERED: ONDANSETRON INJ 2 MG/ML 2 ML VIAL IV STA ×2 (15:54→17:06)
[2017-07-26 16:01] LABS: HEMATOCRIT 29.8 % (37-47); HEMOGLOBIN 10.6 g/dL (12.0-16.0); MEAN CELL VOLUME 97.1 fL (80-100); MEAN CORPUSCULAR HEMOGLOBIN 34.5 pg (25-34); MEAN CORPUSCULAR HGB CONC 35.6 g/dl (32-36); RED CELL DISTRIBUTION WIDTH CV 15.1 % (11.5-14.5); RED CELL DISTRIBUTION WIDTH SD 52.7 fL (36.4-46.3); WHITE BLOOD COUNT 4.31 K/uL (4.8-10.8)
[2017-07-26 16:09] LABS: INR 1.2 (0.9-1.1)
[2017-07-26 16:16] LABS: ALBUMIN 3.1 gm/dl (3.4-5.0); ALT/SGPT 64 U/L (12-78); AST/SGOT 56 U/L (15-37); BLOOD UREA NITROGEN 10 mg/dl (7-18); CALCIUM 7.9 mg/dl (8.5-10.1); CARBON DIOXIDE 25 mmol/L (21-32); CREATININE 0.55 mg/dl (0.60-1.20); GLUCOSE 107 mg/dl (70-99); LIPASE 305 U/L (73-393); POTASSIUM 3.7 mmol/L (3.5-5.1); SODIUM 145 mmol/L (136-145)
[2017-07-26 16:19] LABS: ALKALINE PHOSPHATASE 296 U/L (45-117); PHOSPHORUS 2.4 mg/dl (2.5-4.9); TOTAL PROTEIN 6.6 gm/dl (6.4-8.2)
[2017-07-26] MEDS ORDERED: LACTULOSE SYRUP 20 GM/30 ML UDC PO STA (16:27)
[2017-07-26 16:35] LABS: PLATELET COUNT 99 K/uL (130-400)
[2017-07-26 16:36] LABS: BASO % 0.7 %; BASO ABS # 0.03 K/uL (0-0.2); EOS % 4.4 %; EOS ABS # 0.19 K/uL (0-0.5); IG# 0.01 K/uL (0.00-0.02); LYMPH % 31.1 %; LYMPH ABS # 1.34 K/uL (1.2-3.4); MEAN PLATELET VOLUME 9.9 fL (7.4-10.4); MONO % 7.9 %; MONO ABS # 0.34 K/uL (0.11-0.59); NEUT % 55.7 %
[2017-07-26] MEDS ORDERED: TOPI100T45 PO (17:38)
[2017-07-26] MEDS ORDERED: PROM25TA16 PO (17:38)
[2017-07-26] MEDS ORDERED: SODIUM CHLORIDE 0.9% 1000ML 1,000 ML IV SCH (18:20)
[2017-07-26] MEDS ORDERED: MAGNESIUM HYDROXIDE SUSP 30 ML UDC PO PRN (18:30)
[2017-07-26] MEDS ORDERED: POLYETHYLENE (MIRALAX) 17 GM PACK PO PRN (18:30)
--- NOTE | 2017-07-26 19:04 | History and Physical ---
History & Physical Date & Time of Service: Jul 26, 2017 at 18:40 Chief Complaint: Nausea And Vomiting Primary Care Physician: Olena Little DO History of Present Illness Source: patient, spouse 51 F with PMHx of liver cirrhosis secondary to her antiseizure medications , DMII on insulin, hypothyroidism, seizure disorder, migraines, asthma, parkinsonism, bipolar disorder, depression, chronic pancytopenia, and GERD, traumatic R femoral fracture with intertrochanteric vijaya placed 04/13. For the last 14 days patient has been having severe nausea/vomiting. Unable to keep anything down. She was unable to take care lactulose. She had multiple visits to the ER. She failed outpatient Compazine, Phenergan, Zofran, and she cannot take Reglan due to her seizure. stated that she has some change in her mental status today. Her ammonia level in the ER was 142. Which is higher than her average. Her average is around 80. She also does have some lower abdominal pain and lower medial quadrant. Unspecified appears to be mild, intermittent no relieving or exacerbating factors. Past Medical/Surgical History Medical Problems: (1) Acute bronchitis (2) Acute bronchitis (3) Acute hepatic encephalopathy (4) Alkaline phosphatase elevation (5) Altered mental status (6) Altered mental status (7) Anemia (8) Asthma (9) Back pain (10) Bipol I, Rec Epis (Or Current) Depressed, Unspecified (11) Blepharitis of both eyes (12) Borderline personality disorder (13) Bradycardia (14) Breakthrough seizure (15) Burn (16) Change in mental status (17) Change in mental status (18) Change in mental status (19) Change in mental status (20) Chronic low back pain (21) Cirrhosis (22) Closed head injury (23) Closed head injury (24) Closed right hip fracture (25) Dehydration (26) Diab Ashley Wo Comp Type Ii Or Nos/Not Uncontrolled (27) Diabetic gastroparesis (28) Diarrhea (29) Dizziness (30) Facial laceration (31) Fall (32) Fall (33) Fall (34) Fatigue (35) Head trauma (36) Head trauma (37) Heart murmur (38) Hemorrhoid (39) Hemorrhoids (40) Hepatic encephalopathy (41) Hepatic encephalopathy (42) Hepatic encephalopathy (43) Hepatic encephalopathy (44) Hepatic encephalopathy (45) Hepatic encephalopathy (46) Hepatic encephalopathy (47) Hepatic encephalopathy (48) Hepatic encephalopathy (49) Hepatic encephalopathy (50) Hepatic encephalopathy (51) Hepatic encephalopathy (52) Hepatic encephalopathy (53) Hepatic encephalopathy (54) History of hepatic encephalopathy (55) Hyperammonemia (56) Hyperammonemia (57) Hyperammonemia (58) Hyperammonemia (59) Hypocalcemia (60) Hypocalcemia (61) Hypocalcemia (62) Hypokalemia (63) Hypokalemia (64) Hypokalemia (65) Hypomagnesemia (66) Hyponatremia (67) Hypothyroidism (68) Increased ammonia level (69) Intertrochanteric fracture of left femur (70) Left foot pain (71) Left shoulder pain (72) Leukopenia (73) Lightheaded (74) Low back pain (75) Major depressive disorder with psychotic features (76) Malingering (77) Migraine (78) Migraines (79) Murmur (80) Myelodysplastic syndrome (81) Nausea (82) Nausea (83) Nausea (84) Nausea & vomiting (85) Noncompliance (86) Noncompliance with medication regimen (87) Pain in pelvis (88) Pain, joint, ankle, right (89) Pancytopenia (90) Pancytopenia (91) Peptic ulcer disease (92) Persistent vomiting (93) Portal Hypertension (94) Post-operative pain (95) Right ear pain (96) Right groin pain (97) Right hip pain (98) Right shoulder pain (99) Right upper lobe pneumonia (100) RUQ abdominal pain (101) Seizure (102) Seizure (103) Seizure disorder (104) Sepsis (105) Suicidal ideation (106) UTI (urinary tract infection) (107) UTI (urinary tract infection) (108) Vomiting (109) Weakness (110) Weakness (111) Weakness (112) Weakness Surgical Problems: (1) H/O nasal septoplasty (2) History of appendectomy (3) History of cholecystectomy (4) History of hysterectomy (5) History of kyphoplasty (6) History of tonsillectomy (7) s/p spinal stimulator placement Family History Depression Hypertension Social History Smoking Status: Never Smoker Drug Use: none Marital Status: Housing status: lives with family Occupational Status: disabled Immunizations History of Influenza Vaccine: Yes Influenza Vaccine Date: Feb 02, 2013 History of Tetanus Vaccine?: utd Tetanus Immunization Date: Jun 11, 2008 History of Pneumococcal: SEE LAST PACKET Pneumococcal Date: Nov 13, 2008 History of Hepatitis B Vaccine: Unknown Hepatitis Immunization Date: Jan 12, 1996 Allergies Coded Allergies: Amoxicillin (Verified Allergy, Intermediate, HIVES; Has tolerated cephalosporins (Rocephin, Ceftin,Keflex, 07/26/17) Azithromycin (Verified Allergy, Intermediate, HIVES, 07/26/17) Baclofen (Verified Allergy, Intermediate, RASH, 07/26/17) Butalbital (Verified Allergy, Intermediate, HIVES, 07/26/17) Clarithromycin (Verified Allergy, Intermediate, RASH, 07/26/17) Dicyclomine (Verified Allergy, Intermediate, HIVES, 07/26/17) HIVES Penicillins (Verified Allergy, Intermediate, RASH; has tolerated cephs ( Rocephin, Keflex, Ceftin), 07/26/17) PT STATES SHE GETS WELTS FROM CIPRO,LEVAQUIN ALLERGY PER DR ROBLES Tetracyclines (Verified Allergy, Intermediate, DOXYCYCLINE-HIVES, 07/26/17) Sulindac (Verified Allergy, Mild, ALLERGY LISTED "CLONDORAL"--HIVES, ) Adhesives (Verified Allergy, Unknown, RASH, DUODERM=RED,ITCHY, 07/26/17) PLASTIC TAPE IS OK!!! DUODERM=RED,ITCHY Clavulanic Acid (Unverified Allergy, Unknown, diahrea , 07/26/17) Metronidazole (Verified Allergy, Unknown, SEIZURE, 07/26/17) Tramadol (Verified Allergy, Unknown, SEIZURES, 07/26/17) Metoclopramide (Verified Adverse Reaction, Severe, SEIZURES, 07/26/17) Blueberry (Verified Adverse Reaction, Mild, STOMACH PAIN, 07/26/17) Furosemide (Verified Adverse Reaction, Unknown, HIVES, 07/26/17) Home Medications Scheduled Ascorbic Acid (Vitamin C), 1,000 MG PO QAM Cholecalciferol (Vitamin D), 5,000 UNITS PO QAM Cranberry (Vaccinium Macrocarp (Cranberry Extract), 1 CAP PO BID Hydroxyzine Pamoate (Vistaril), 50 MG PO HS Ibuprofen (Advil), 400 MG PO UD Insulin Glargine (Lantus Solostar), 40 UNITS SC BID Insulin Lispro (Human) (Humalog Kwikpen), 20 UNITS SC AC Lactulose (Chronulac), 15 ML PO QAM Levetiracetam (Levetiracetam), 2,000 MG PO BID Levothyroxine Sodium (Levothyroxine Sodium), 75 MCG PO QAM Magnesium Oxide (Mg Supplement (Magnesium), 500 MG PO BID Mirtazapine (Mirtazapine), 45 MG PO HS Multivitamin (Multivitamin), 1 TAB PO QAM Omeprazole (Prilosec), 20 MG PO QAM Oxcarbazepine (Trileptal), 300 MG PO BID Probiotic Product (Probiotic), 1 CAP PO QAM Prochlorperazine Maleate (Compazine), 10 MG PO Q6H Promethazine HCl (Promethazine HCl), 25 MG PO UD Rifaximin (Xifaxan), 550 MG PO BID Sertraline (Zoloft), 100 MG PO QAM Spironolactone (Aldactone), 50 MG PO QAM Topiramate (Topamax ), 75 MG PO QPM Topiramate (Topamax), 100 MG PO QAM Vitamin A (Vitamin A), 1 CAP PO QAM Zinc Gluconate (Zinc), 50 MG PO BID [Tobradex Otic], 5 DROPS OTR TID Scheduled PRN Ondansetron Odt (Zofran Odt), 8 MG SL Q6H PRN for Nausea Oxycodone Ir (Roxicodone Ir), 5 MG PO Q6H PRN for Pain Rizatriptan Benzoate (Maxalt), 10 MG PO DIRECTED PRN for Migraine Review of Systems Constitutional: + weakness, + fatigue, No fever, No chills, No sweats, No weight loss, No problem reported Eyes: No worsening of vision, No eye pain, No redness, No discharge, No diplopia, No problem reported ENT: No hearing loss, No unusual epistaxis, No nasal symptoms, No sore throat, No tinnitus, No dental problems, No trouble swallowing, No problem reported Respiratory: No cough, No sputum, No wheezing, No shortness of breath, No dyspnea on exertion, No dyspnea at rest, No hemoptysis, No problem reported Cardiovascular: No chest pain, No orthopnea, No PND, No edema, No claudication , No palpitations, No problem reported Abdomen: + pain, + nausea, + vomiting, + diarrhea, No constipation, No GI bleeding, No problem reported Musculoskeletal: No joint pain, No muscle pain, No swelling, No calf pain, No problem reported Genitourinary - Female: No dysuria, No urinary frequency, No urinary urgency, No urinary incontinence, No urinary retention, No hematuria, No dysmenorrhea, No menorrhagia, No metrorrhagia, No rash, No vaginal bleeding, No vaginal discharge, No vaginal itching, No vulvodynia, No , No problem reported Neurologic: + memory loss, + weakness, No paralysis, No numbness/tingling, No vertigo, No balance problems, No problem reported Psychiatric: No depression symptoms, No anhedonism, No anxiety, No insomnia, No substance abuse, No problem reported Endocrine: + fatigue, No excessive thirst, No excessive urination, No problem reported Hematologic / Lymphatic: No abnormal bleeding/bruising, No clotting problems, No swollen lymph nodes, No night sweats, No problem reported Integumentary: No rash, No itch, No new/changing skin lesions, No color change , No bleeding, No problem reported Allergic / Immunologic: No environmental allergies, No seasonal allergies, No pet sensitivities, No food allergies, No hives, No frequent infections, No poor healing, No prolonged convalescence, No problem reported Physical Exam Vital Signs Date Time Temp Pulse Resp B/P (MAP) Pulse Ox O2 Delivery O2 Flow Rate FiO2 07/26/17 18:26 82 20 137/71 99 Room Air 07/26/17 16:30 86 143/99 99 Room Air 07/26/17 15:41 80 16 125/65 97 Room Air 07/26/17 14:18 36.7 86 20 141/78 99 Room Air General Appearance: + mild distress, + obese Head: normocephalic, atraumatic Eyes: normal inspection, EOMI ENT: normal ENT inspection, hearing grossly normal Neck: supple Respiratory/Chest: chest non-tender, lungs clear, normal breath sounds, no respiratory distress, no accessory muscle use Cardiovascular: regular rate, rhythm, no edema, no gallop, no JVD, no murmur, normal peripheral pulses Abdomen/GI: normal bowel sounds, + tenderness, + distended Back: normal inspection, no CVA tenderness, no muscle spasm Extremities/Musculoskelatal: normal inspection, no calf tenderness, normal capillary refill, no pedal edema Neurologic/Psych: production hardener II-XII nml as tested, no motor/sensory deficits, alert, normal mood/affect, normal reflexes, oriented x 3 Skin: normal color, warm/dry, no rash Diagnostics Laboratory Results Results Past 24 Hours Test 07/26/17 15:33 07/26/17 16:30 Range/Units White Blood Count 4.31 4.8-10.8 K/uL Red Blood Count 3.07 4.2-5.4 M/uL Hemoglobin 10.6 12.0-16.0 g/dL Hematocrit 29.8 37-47 % Mean Corpuscular Volume 97.1 80-100 fL Mean Corpuscular Hemoglobin 34.5 25-34 pg Mean Corpuscular Hemoglobin Concent 35.6 32-36 g/dl Platelet Count 99 130-400 K/uL Mean Platelet Volume 9.9 7.4-10.4 fL Neutrophils (%) (Auto) 55.7 % Lymphocytes (%) (Auto) 31.1 % Monocytes (%) (Auto) 7.9 % Eosinophils (%) (Auto) 4.4 % Basophils (%) (Auto) 0.7 % Neutrophils # (Auto) 2.40 1.4-6.5 K/uL Lymphocytes # (Auto) 1.34 1.2-3.4 K/uL Monocytes # (Auto) 0.34 0.11-0.59 K/uL Eosinophils # (Auto) 0.19 0-0.5 K/uL Basophils # (Auto) 0.03 0-0.2 K/uL RDW Standard Deviation 52.7 36.4-46.3 fL RDW Coefficient of Variation 15.1 11.5-14.5 % Immature Granulocyte % (Auto) 0.2 % Immature Granulocyte # (Auto) 0.01 0.00-0.02 K/uL Red Blood Cell Morphology Unremarkable Prothrombin Time 13.0 9.0-12.0 SECONDS Prothromb Time International Ratio 1.2 0.9-1.1 Activated Partial Thromboplast Time 31.0 21.0-31.0 SECONDS Partial Thromboplastin Ratio 1.2 Sodium Level 145 136-145 mmol/L Potassium Level 3.7 3.5-5.1 mmol/L Chloride Level 119 98-107 mmol/L Carbon Dioxide Level 25 21-32 mmol/L Anion Gap 1.0 3-11 mmol/L Blood Urea Nitrogen 10 7-18 mg/dl Creatinine 0.55 0.60-1.20 mg/dl Est Creatinine Clear Calc Drug Dose 136.4 ml/min Estimated GFR () 125.9 Estimated GFR (Non- 108.6 BUN/Creatinine Ratio 17.3 10-20 Random Glucose 107 70-99 mg/dl Calcium Level 7.9 8.5-10.1 mg/dl Phosphorus Level 2.4 2.5-4.9 mg/dl Magnesium Level 1.7 1.8-2.4 mg/dl Total Bilirubin 1.2 0.2-1 mg/dl Direct Bilirubin 0.5 0-0.2 mg/dl Aspartate Amino Transf (AST/SGOT) 56 15-37 U/L Alanine Aminotransferase (ALT/SGPT) 64 12-78 U/L Alkaline Phosphatase 296 45-117 U/L Ammonia 142.5 11-32 umol/L Troponin I < 0.015 0-0.045 ng/ml Total Protein 6.6 6.4-8.2 gm/dl Albumin 3.1 3.4-5.0 gm/dl Lipase 305 73-393 U/L Urine Color YELLOW Urine Appearance CLEAR CLEAR Urine pH 8.0 4.5-7.5 Urine Specific [place] 1.010 1.000-1.030 Urine Protein NEG NEG Urine Glucose (UA) NEG NEG Urine Ketones NEG NEG Urine Occult Blood NEG NEG Urine Nitrite NEG NEG Urine Bilirubin NEG NEG Urine Urobilinogen NEG NEG Urine Leukocyte Esterase TRACE NEG Urine WBC (Auto) 1-5 0-5 /hpf Urine RBC (Auto) 10-30 0-4 /hpf Urine Hyaline Casts (Auto) 0 0-5 /lpf Urine Epithelial Cells (Auto) 0-5 0-5 /lpf Urine Bacteria (Auto) NEG NEG Microbiology Results 07/26/17 Blood Culture, Ordered Pending 07/26/17 Blood Culture, Ordered Pending Diagnostic Radiology CT SCAN OF THE ABDOMEN AND PELVIS WITHOUT CONTRAST CLINICAL HISTORY: Abdominal pain, nausea, diarrhea COMPARISON STUDY: April 03, 2016 TECHNIQUE: CT scan of the abdomen and pelvis was performed from the lung bases to the proximal femurs. Images are reviewed in the axial, sagittal, and coronal planes. IV contrast was not administered for this examination. A dose lowering technique was utilized adhering to the principles of ALARA. CT DOSE: 973.33 mGycm FINDINGS: Lower chest: There are basilar atelectatic changes. Liver: The liver has a cirrhotic morphology. No focal masses are visualized in this noncontrast study. Gallbladder: Surgically absent Spleen: The spleen is enlarged measuring 18 cm Pancreas: Unremarkable. Adrenal glands: Unremarkable. Impression Assessment and Plan 51 F with PMHx of liver cirrhosis secondary to seizure med hepatotoxicity, DMII on insulin, hypothyroidism, seizure disorder, migraines, asthma, parkinsonism, bipolar disorder, depression, chronic pancytopenia, and GERD, traumatic R femoral fracture with intertrochanteric vijaya placed 04/13. Presented with severe nausea failed outpatient Compazine, Phenergan, Zofran, and she cannot take Reglan due to her seizure. Also had early hepatic encephalopathy Assessment/plan Hepatic encephalopathy secondary to inability to take lactulose Continue rifaximin Restart lactulose Check ammonia level in a.m. Severe nausea/dry heaves Possible gastritis/gastroparesis Start patient on IV Phenergan Obtain gastric emptying study name Protonix IV twice daily Consult GI 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 type 2 on insulin Decrease insulin dose as patient is not tolerating oral intake, sliding scale insulin Hypothyroidism Continue Synthroid, switching dose from 75 mg oral daily to 35 mg IV daily Seizure disorder Switch Keppra to IV, conversion usually should be same dose from oral to IV, but patient for the last 2 days was taking only 1000 mg daily due to her nausea she was missing her morning dose. DVT prophylaxis with heparin, monitor platelets count if it drops below 90 consider holding heparin Resuscitation Status VTE Prophylaxis Will order VTE Prophylaxis: Yes
[2017-07-26] MEDS ORDERED: IV FLUIDS COMPLETED PRN (20:30)
[2017-07-26] MEDS: INSULIN GLARGINE SOLOSTAR 100 UNITS/ML 3 ML PEN SC SCH (21:00)
[2017-07-26 21:42] VITALS: BMI 34.5
[2017-07-26] MEDS: HEPARIN SOD 5000 UNIT/0.5 ML CARP SQ SCH (22:00)
[2017-07-26 22:07] VITALS: BP 116/73; PULSE 78; TEMP 37; O2SAT 96
[2017-07-26] MEDS: PANTOprazole INJ 40 MG in SYRINGE 0 ML IV SCH (22:48)
[2017-07-26] MEDS: LACTULOSE SYRUP 20 GM/30 ML UDC PO SCH (22:50)
[2017-07-26] MEDS: LEVETIRACETAM IV 1,000 MG in DEXTROSE 5% 100ML 100 ML IV SCH (22:51)
[2017-07-26] MEDS: hydrOXYzine HCL 25 MG TAB PO SCH (22:51)
[2017-07-26] MEDS: MAGNESIUM OXIDE 400 MG TAB PO SCH (22:52)
[2017-07-26] MEDS: RIFAXIMIN TAB 550 MG TAB PO SCH (22:53)
[2017-07-26] MEDS: MIRTAZAPINE TAB 15 MG TAB PO SCH (22:54)
[2017-07-26] MEDS: OXCARBAZEPINE 150 MG TAB PO SCH (22:56)
[2017-07-26] MEDS: TOPIRAMATE 25 MG TAB PO SCH (22:57)
[2017-07-27] MEDS: OXYCODONE HCL IR 5 MG TAB (IMMEDIATE RELEASE) PO PRN ×3 (02:42→19:09)
[2017-07-27] MEDS: ONDANSETRON INJ 2 MG/ML 2 ML VIAL IV PRN ×3 (02:55→22:04)
[2017-07-27 04:26] VITALS: BP 116/71; PULSE 74; TEMP 36.6; O2SAT 95
[2017-07-27] MEDS: HEPARIN SOD 5000 UNIT/0.5 ML CARP SQ SCH ×2 (04:43→12:15)
[2017-07-27] MEDS: PROMETHAZINE HCL INJ 12.5 MG in SODIUM CHLORIDE 0.9% 50ML 50 ML IV PRN ×2 (06:01→17:26)
[2017-07-27] MEDS: INSULIN ASPART 100 UNITS/ML 3 ML PEN SC SCH ×4 (07:00→21:00)
[2017-07-27 07:03] LABS: HEMATOCRIT 28.5 % (37-47); MEAN CORPUSCULAR HEMOGLOBIN 34.7 pg (25-34); MEAN CORPUSCULAR HGB CONC 35.1 g/dl (32-36); RED CELL DISTRIBUTION WIDTH CV 15.6 % (11.5-14.5); RED CELL DISTRIBUTION WIDTH SD 55.7 fL (36.4-46.3); WHITE BLOOD COUNT 3.42 K/uL (4.8-10.8)
[2017-07-27 07:06] VITALS: BP 122/73; PULSE 84; TEMP 36.6; O2SAT 95
[2017-07-27 07:30] LABS: ALBUMIN 2.9 gm/dl (3.4-5.0); CALCIUM 7.7 mg/dl (8.5-10.1); CREATININE 0.6 mg/dl (0.60-1.20); POTASSIUM 3.4 mmol/L (3.5-5.1)
[2017-07-27] MEDS: RIFAXIMIN TAB 550 MG TAB PO SCH ×2 (07:31→21:24)
[2017-07-27] MEDS: TOPIRAMATE 100 MG TAB PO SCH (07:31)
[2017-07-27] MEDS: SPIRONOLACTONE 25 MG TAB PO SCH (07:32)
[2017-07-27] MEDS: MAGNESIUM OXIDE 400 MG TAB PO SCH ×2 (07:32→21:38)
[2017-07-27] MEDS: OXCARBAZEPINE 150 MG TAB PO SCH ×2 (07:33→21:24)
[2017-07-27] MEDS: LACTULOSE SYRUP 20 GM/30 ML UDC PO SCH ×4 (07:33→20:00)
[2017-07-27] MEDS: SERTRALINE HCL 50 MG TAB PO SCH (07:33)
[2017-07-27 07:35] LABS: PHOSPHORUS 3.7 mg/dl (2.5-4.9)
[2017-07-27] MEDS: INSULIN GLARGINE SOLOSTAR 100 UNITS/ML 3 ML PEN SC SCH ×2 (07:38→21:26)
[2017-07-27 07:46] LABS: BASO % 1.2 %; BASO ABS # 0.04 K/uL (0-0.2); EOS % 4.7 %; EOS ABS # 0.16 K/uL (0-0.5); LYMPH % 40.6 %; LYMPH ABS # 1.39 K/uL (1.2-3.4); MEAN PLATELET VOLUME 9.7 fL (7.4-10.4); MONO % 7.3 %; MONO ABS # 0.25 K/uL (0.11-0.59); NEUT % 46.2 %; NEUT ABS # 1.58 K/uL (1.4-6.5); PLATELET COUNT 95 K/uL (130-400)
[2017-07-27] MEDS ORDERED: LEVOTHYROXINE 75 MCG TAB PO SCH (09:00)
[2017-07-27] MEDS: D5W AND 1/2NSS + 20MEQ KCL 1,000 ML IV SCH (09:25)
[2017-07-27] MEDS: PANTOprazole INJ 40 MG in SYRINGE 0 ML IV SCH ×2 (09:25→21:25)
[2017-07-27] MEDS: LEVOTHYROXINE SODIUM INJ 35 MCG in SYRINGE 0 ML IV SCH (10:29)
[2017-07-27] MEDS: LEVETIRACETAM IV 1,000 MG in DEXTROSE 5% 100ML 100 ML IV SCH ×2 (10:29→21:25)
[2017-07-27 12:08] VITALS: BP 149/73; PULSE 82; TEMP 36.8; O2SAT 91
[2017-07-27 14:07] VITALS: BP 149/73; PULSE 82; TEMP 36.8; O2SAT 91
[2017-07-27] MEDS ORDERED: RIZATRIPTAN BENZOATE 10 MG TAB PO PRN (14:15)
[2017-07-27 15:10] VITALS: BP 121/69; PULSE 79; TEMP 36.6; O2SAT 96
[2017-07-27] MEDS: TOBRAMYCIN/DEXAMETHASONE OPH SUSP 2.5 ML BTL OTR SCH ×2 (16:23→21:11)
--- NOTE | 2017-07-27 16:39 | Progress Note ---
Subjective Date of Service: Jul 27, 2017. Subjective Pt evaluation today including: conversation w/ patient, conversation w/ family , physical exam, chart review, lab review, review of studies, conversation w/ air quality consultant, review of inpatient medication list Yesterday has bowel movement, today has no bowel movement yet, report has epigastric pain, and nausea patient, Problem List Medical Problems: (1) Acute bronchitis Status: Acute (2) Acute bronchitis Status: Acute (3) Acute hepatic encephalopathy Status: Acute (4) Alkaline phosphatase elevation Status: Acute (5) Altered mental status Status: Acute (6) Anemia Status: Acute (7) Back pain Status: Acute (8) Bradycardia Status: Acute (9) Breakthrough seizure Status: Acute (10) Burn Status: Acute (11) Change in mental status Status: Acute (12) Change in mental status Status: Acute (13) Change in mental status Status: Acute (14) Change in mental status Status: Acute (15) Chronic low back pain Status: Acute (16) Closed head injury Status: Acute (17) Dehydration Status: Acute (18) Dehydration Status: Acute (19) Diarrhea Status: Acute (20) Dizziness Status: Acute (21) Facial laceration Status: Acute (22) Failure of outpatient treatment Status: Acute (23) Fall Status: Acute (24) Fall Status: Acute (25) Fall Status: Acute (26) Fatigue Status: Acute (27) Head trauma Status: Acute (28) Hemorrhoid Status: Acute (29) Hepatic encephalopathy Status: Acute (30) Hepatic encephalopathy Status: Acute (31) Hepatic encephalopathy Status: Acute (32) Hepatic encephalopathy Status: Acute (33) Hepatic encephalopathy Status: Acute (34) Hepatic encephalopathy Status: Acute (35) Hepatic encephalopathy Status: Acute (36) Hepatic encephalopathy Status: Acute (37) Hepatic encephalopathy Status: Acute (38) Hepatic encephalopathy Status: Acute (39) Hepatic encephalopathy Status: Acute (40) Hepatic encephalopathy Status: Acute (41) Hepatic encephalopathy Status: Acute (42) Hepatic encephalopathy Status: Acute (43) Hepatic encephalopathy Status: Acute (44) Hyperammonemia Status: Acute (45) Hyperammonemia Status: Acute (46) Hyperammonemia Status: Acute (47) Hyperammonemia Status: Acute (48) Hypocalcemia Status: Acute (49) Hypocalcemia Status: Acute (50) Hypocalcemia Status: Acute (51) Hypokalemia Status: Acute (52) Hypokalemia Status: Acute (53) Hypokalemia Status: Acute (54) Hypomagnesemia Status: Acute (55) Increased ammonia level Status: Acute (56) Intertrochanteric fracture of left femur Status: Acute (57) Left foot pain Status: Acute (58) Left shoulder pain Status: Acute (59) Leukopenia Status: Acute (60) Lightheaded Status: Acute (61) Low back pain Status: Acute (62) Malingering Status: Acute (63) Medical non-compliance Status: Acute (64) Migraine Status: Acute (65) Nausea Status: Acute (66) Nausea Status: Acute (67) Nausea Status: Acute (68) Nausea Status: Acute (69) Nausea & vomiting Status: Acute (70) Noncompliance Status: Acute (71) Noncompliance with medication regimen Status: Acute (72) Pain in pelvis Status: Acute (73) Pain, joint, ankle, right Status: Acute (74) Pancytopenia Status: Acute (75) Persistent vomiting Status: Acute (76) Post-operative pain Status: Acute (77) Right ear pain Status: Acute (78) Right groin pain Status: Acute (79) Right hip pain Status: Acute (80) Right upper lobe pneumonia Status: Acute (81) RUQ abdominal pain Status: Acute (82) Seizure Status: Acute (83) Sepsis Status: Acute (84) UTI (urinary tract infection) Status: Acute (85) Vomiting Status: Acute (86) Weakness Status: Acute (87) Weakness Status: Acute (88) Weakness Status: Acute (89) Weakness Status: Acute Review of Systems Constitutional: + weakness, + fatigue, No fever, No chills, No sweats, No weight loss, No problem reported Eyes: No worsening of vision, No eye pain, No redness, No discharge, No diplopia ENT: No hearing loss, No unusual epistaxis, No nasal symptoms, No sore throat, No tinnitus, No dental problems, No trouble swallowing Respiratory: No cough, No sputum, No wheezing, No shortness of breath, No dyspnea on exertion, No dyspnea at rest, No hemoptysis Cardiac: No chest pain, No orthopnea, No PND, No edema, No claudication, No palpitations Abdomen: No pain, No nausea, No vomiting, No diarrhea, No constipation Musculoskeletal: No joint pain, No muscle pain, No swelling, No calf pain Female : No dysuria, No urinary frequency, No hematuria, No incontinence, No abnormal vaginal bleeding, No vaginal discharge Neurologic: No memory loss, No paralysis, No weakness, No numbness/tingling, No vertigo, No balance problems Psychiatric: No depression symptoms, No anhedonism, No anxiety, No insomnia, No substance abuse Heme: No abnormal bleeding/bruising, No clotting problems, No swollen lymph nodes, No night sweats Endo: No fatigue, No excessive thirst, No excessive urination Skin: No rash, No itch, No new/changing skin lesions, No color change, No bleeding Objective Vital Signs Date Time Temp Pulse Resp B/P (MAP) Pulse Ox O2 Delivery O2 Flow Rate FiO2 07/27/17 15:10 36.6 79 16 121/69 (86) 96 Room Air 07/27/17 14:07 36.8 82 19 91 07/27/17 12:08 36.8 82 19 149/73 (98) 91 Room Air 07/27/17 12:00 Room Air 07/27/17 08:00 Room Air 07/27/17 07:06 36.6 84 19 122/73 (89) 95 Room Air 07/27/17 04:26 36.6 74 18 116/71 (86) 95 07/26/17 22:07 37.0 78 18 116/73 (87) 96 Room Air 07/26/17 21:42 Room Air 07/26/17 21:00 81 20 147/67 98 07/26/17 19:53 82 18 155/69 97 Room Air 07/26/17 19:00 83 132/67 96 Room Air 07/26/17 18:26 82 20 137/71 99 Room Air Physical Exam General Appearance: WD/WN, no apparent distress, + obese, + pertinent finding ( Pleasant conversational,) Eyes: normal inspection, PERRL, EOMI, sclerae normal ENT: normal ENT inspection, hearing grossly normal, pharynx normal Neck: supple, no adenopathy, thyroid normal, no JVD, no carotid bruits, trachea midline Respiratory/Chest: chest non-tender, normal breath sounds, no respiratory distress, no accessory muscle use, + decreased breath sounds Cardiovascular: regular rate, rhythm, no edema, no gallop, no JVD, no murmur Abdomen: normal bowel sounds, non tender, soft, no organomegaly, no pulsatile mass Extremities: normal range of motion, non-tender, normal inspection, no pedal edema, no calf tenderness, normal capillary refill, pelvis stable Neurologic/Psychiatric: supervisor particleboard II-XII nml as tested, no motor/sensory deficits, alert, normal mood/affect, oriented x 3 Skin: normal color, warm/dry, no rash Lymphatic: no adenopathy Laboratory Results Last 24 Hours Test 07/26/17 22:59 07/26/17 23:13 07/27/17 06:33 07/27/17 06:55 Bedside Glucose 68 mg/dl 87 mg/dl 82 mg/dl White Blood Count 3.42 K/uL Red Blood Count 2.88 M/uL Hemoglobin 10.0 g/dL Hematocrit 28.5 % Mean Corpuscular Volume 99.0 fL Mean Corpuscular Hemoglobin 34.7 pg Mean Corpuscular Hemoglobin Concent 35.1 g/dl Platelet Count 95 K/uL Mean Platelet Volume 9.7 fL Neutrophils (%) (Auto) 46.2 % Lymphocytes (%) (Auto) 40.6 % Monocytes (%) (Auto) 7.3 % Eosinophils (%) (Auto) 4.7 % Basophils (%) (Auto) 1.2 % Neutrophils # (Auto) 1.58 K/uL Lymphocytes # (Auto) 1.39 K/uL Monocytes # (Auto) 0.25 K/uL Eosinophils # (Auto) 0.16 K/uL Basophils # (Auto) 0.04 K/uL RDW Standard Deviation 55.7 fL RDW Coefficient of Variation 15.6 % Immature Granulocyte % (Auto) 0.0 % Immature Granulocyte # (Auto) 0.00 K/uL Sodium Level 146 mmol/L Potassium Level 3.4 mmol/L Chloride Level 117 mmol/L Carbon Dioxide Level 22 mmol/L Anion Gap 7.0 mmol/L Blood Urea Nitrogen 7 mg/dl Creatinine 0.60 mg/dl Est Creatinine Clear Calc Drug Dose 125.7 ml/min Estimated GFR () 122.3 Estimated GFR (Non- 105.5 BUN/Creatinine Ratio 11.2 Random Glucose 83 mg/dl Lactic Acid Level 1.7 mmol/L Calcium Level 7.7 mg/dl Phosphorus Level 3.7 mg/dl Magnesium Level 1.8 mg/dl Total Bilirubin 1.6 mg/dl Aspartate Amino Transf (AST/SGOT) 54 U/L Alanine Aminotransferase (ALT/SGPT) 59 U/L Alkaline Phosphatase 266 U/L Total Protein 6.0 gm/dl Albumin 2.9 gm/dl Globulin 3.1 gm/dl Albumin/Globulin Ratio 0.9 Test 07/27/17 11:28 07/27/17 13:18 Bedside Glucose 238 mg/dl Ammonia 111.0 umol/L Assessment and Plan 51 F with history of liver cirrhosis admitted on July 26, 2017 because of severe nausea failed outpatient Compazine, Phenergan, Zofran, and she cannot take Reglan due to her seizure. Also had early hepatic encephalopathy PMHx of liver cirrhosis secondary to seizure med hepatotoxicity, DMII on insulin , hypothyroidism, seizure disorder, migraines, asthma, parkinsonism, bipolar disorder, depression, chronic pancytopenia, and GERD, traumatic R femoral fracture with intertrochanteric vijaya placed Hepatic encephalopathy secondary to inability to take lactulose, currently is awake alert orientated, ammonia level decreased from 140 to 110, per patient and her 80-100 of ammonia is her baseline Continue rifaximin, lactulose, encourage really take medicine as ordered Check ammonia level in a.m. Severe nausea/dry heaves, improved Possible gastritis/gastroparesis, continue IV Phenergan Obtain gastric emptying study Continue Protonix IV twice daily Has requested consult GI 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 type 2 on insulin, check HbA1c Decrease insulin dose as patient is not tolerating oral intake, sliding scale insulin Hypothyroidism Continue Synthroid, switching dose from 75 mg oral daily to 35 mg IV daily Seizure disorder, continue Keppra to IV for now until her GI upset getting better Hyper natremia, will follow up DVT prophylaxis DC heparin because of platelet is<90 Continued [facility] stay due to: multiple IV medications needed Discharge planning: home
[2017-07-27] MEDS ORDERED: NURSING DECISION MEDICATION ORDER PRN (21:15)
[2017-07-27] MEDS: MIRTAZAPINE TAB 15 MG TAB PO SCH (21:27)
[2017-07-27] MEDS: TOPIRAMATE 25 MG TAB PO SCH (21:28)
[2017-07-27] MEDS: hydrOXYzine HCL 25 MG TAB PO SCH (21:29)
[2017-07-27] MEDS ORDERED: SODIUM CHLORIDE 0.65% NA SOLN 45 ML (OCEAN) PRN (21:30)
--- NOTE | 2017-07-27 22:06 | Medical Consult ---
Consultation Note Date of Service Jul 27, 2017. Consultation Note Reason for consult: intractable nausea HPI: 51 yo M known to me with h/o seizure disorder, DM2 with h/o DM gastroparesis, NAFLD cirrhosis complicated by chronic hyperammonemia and HE. She has chronic nausea for which she stakes Zofran and Compazine as an outpt. For the past week, her nausea has worsened - she states that she is unable to tolerate any PO. She has been seen in the ER x3; labs during ER visit do not show clear evidence of dehydration, CT scan unremarkable, given IV Zofran with some short lived relief. She received IVFs and IV Emend on Friday without relief. Denies NSAIDs. Taking Oxycodone, but unable to quantify. Her reports mild confusion Friday; she has not been taking lactulose. Past Medical/Surgical History Medical Problems: Asthma, Borderline personality, depression, headache Surgical Problems: (1) H/O nasal septoplasty (2) History of appendectomy (3) History of cholecystectomy (4) History of hysterectomy (5) History of kyphoplasty (6) History of tonsillectomy (7) s/p spinal stimulator placement Family History Depression Hypertension Social History Smoking Status: Never Smoker Drug Use: none Marital Status: Housing status: lives with family Occupational Status: disabled Allergies Coded Allergies: Amoxicillin (Verified Allergy, Intermediate, HIVES; Has tolerated cephalosporins (Rocephin, Ceftin,Keflex, 07/26/17) Azithromycin (Verified Allergy, Intermediate, HIVES, 07/26/17) Baclofen (Verified Allergy, Intermediate, RASH, 07/26/17) Butalbital (Verified Allergy, Intermediate, HIVES, 07/26/17) Clarithromycin (Verified Allergy, Intermediate, RASH, 07/26/17) Dicyclomine (Verified Allergy, Intermediate, HIVES, 07/26/17) HIVES Penicillins (Verified Allergy, Intermediate, RASH; has tolerated cephs ( Rocephin, Keflex, Ceftin), 07/26/17) PT STATES SHE GETS WELTS FROM CIPRO,LEVAQUIN ALLERGY PER DR ROBLES Tetracyclines (Verified Allergy, Intermediate, DOXYCYCLINE-HIVES, 07/26/17) Sulindac (Verified Allergy, Mild, ALLERGY LISTED "CLONDORAL"--HIVES, ) Adhesives (Verified Allergy, Unknown, RASH, DUODERM=RED,ITCHY, 07/26/17) PLASTIC TAPE IS OK!!! DUODERM=RED,ITCHY Clavulanic Acid (Unverified Allergy, Unknown, diahrea , 07/26/17) Metronidazole (Verified Allergy, Unknown, SEIZURE, 07/26/17) Tramadol (Verified Allergy, Unknown, SEIZURES, 07/26/17) Metoclopramide (Verified Adverse Reaction, Severe, SEIZURES, 07/26/17) Blueberry (Verified Adverse Reaction, Mild, STOMACH PAIN, 07/26/17) Furosemide (Verified Adverse Reaction, Unknown, HIVES, 07/26/17) Home Medications Scheduled Ascorbic Acid (Vitamin C), 1,000 MG PO QAM Cholecalciferol (Vitamin D), 5,000 UNITS PO QAM Cranberry (Vaccinium Macrocarp (Cranberry Extract), 1 CAP PO BID Hydroxyzine Pamoate (Vistaril), 50 MG PO HS Ibuprofen (Advil), 400 MG PO UD Insulin Glargine (Lantus Solostar), 40 UNITS SC BID Insulin Lispro (Human) (Humalog Kwikpen), 20 UNITS SC AC Lactulose (Chronulac), 15 ML PO QAM Levetiracetam (Levetiracetam), 2,000 MG PO BID Levothyroxine Sodium (Levothyroxine Sodium), 75 MCG PO QAM Magnesium Oxide (Mg Supplement (Magnesium), 500 MG PO BID Mirtazapine (Mirtazapine), 45 MG PO HS Multivitamin (Multivitamin), 1 TAB PO QAM Omeprazole (Prilosec), 20 MG PO QAM Oxcarbazepine (Trileptal), 300 MG PO BID Probiotic Product (Probiotic), 1 CAP PO QAM Prochlorperazine Maleate (Compazine), 10 MG PO Q6H Promethazine HCl (Promethazine HCl), 25 MG PO UD Rifaximin (Xifaxan), 550 MG PO BID Sertraline (Zoloft), 100 MG PO QAM Spironolactone (Aldactone), 50 MG PO QAM Topiramate (Topamax ), 75 MG PO QPM Topiramate (Topamax), 100 MG PO QAM Vitamin A (Vitamin A), 1 CAP PO QAM Zinc Gluconate (Zinc), 50 MG PO BID [Tobradex Otic], 5 DROPS OTR TID Scheduled PRN Ondansetron Odt (Zofran Odt), 8 MG SL Q6H PRN for Nausea Oxycodone Ir (Roxicodone Ir), 5 MG PO Q6H PRN for Pain Rizatriptan Benzoate (Maxalt), 10 MG PO DIRECTED PRN for Migraine Physical Exam Vital Signs Date Time Temp Pulse Resp B/P (MAP) Pulse Ox O2 Delivery O2 Flow Rate FiO2 07/27/17 16:00 Room Air 07/27/17 15:10 36.6 79 16 121/69 (86) 96 Room Air 07/27/17 14:07 36.8 82 19 91 07/27/17 12:08 36.8 82 19 149/73 (98) 91 Room Air 07/27/17 12:00 Room Air 07/27/17 08:00 Room Air 07/27/17 07:06 36.6 84 19 122/73 (89) 95 Room Air 07/27/17 04:26 36.6 74 18 116/71 (86) 95 07/26/17 22:07 37.0 78 18 116/73 (87) 96 Room Air General Appearance: Appears comfortable, lying in bed. Her dinner tray, consisting of clear liquids, has no residual food. HEENT: oc clear and anicteric, moist and pink Respiratory/Chest: chest non-tender, lungs clear, normal breath sounds, no respiratory distress, no accessory muscle use Cardiovascular: regular rate, rhythm, Abdomen/GI: Non tender, no hsm, no ascites, no distention Back: normal inspection, no CVA tenderness, no muscle spasm Extremities/Musculoskelatal: normal inspection, no calf tenderness, normal capillary refill, no pedal edema Neurologic/Psych: She is alert and lucid, conversant with normal speech. She has no tremor. Skin: normal color, warm/dry, no rash Diagnostics Laboratory Results Last 24 Hours Test 07/26/17 22:59 07/26/17 23:13 07/27/17 06:33 07/27/17 06:55 Bedside Glucose 68 mg/dl 87 mg/dl 82 mg/dl White Blood Count 3.42 K/uL Red Blood Count 2.88 M/uL Hemoglobin 10.0 g/dL Hematocrit 28.5 % Mean Corpuscular Volume 99.0 fL Mean Corpuscular Hemoglobin 34.7 pg Mean Corpuscular Hemoglobin Concent 35.1 g/dl Platelet Count 95 K/uL Mean Platelet Volume 9.7 fL Neutrophils (%) (Auto) 46.2 % Lymphocytes (%) (Auto) 40.6 % Monocytes (%) (Auto) 7.3 % Eosinophils (%) (Auto) 4.7 % Basophils (%) (Auto) 1.2 % Neutrophils # (Auto) 1.58 K/uL Lymphocytes # (Auto) 1.39 K/uL Monocytes # (Auto) 0.25 K/uL Eosinophils # (Auto) 0.16 K/uL Basophils # (Auto) 0.04 K/uL RDW Standard Deviation 55.7 fL RDW Coefficient of Variation 15.6 % Immature Granulocyte % (Auto) 0.0 % Immature Granulocyte # (Auto) 0.00 K/uL Sodium Level 146 mmol/L Potassium Level 3.4 mmol/L Chloride Level 117 mmol/L Carbon Dioxide Level 22 mmol/L Anion Gap 7.0 mmol/L Blood Urea Nitrogen 7 mg/dl Creatinine 0.60 mg/dl Est Creatinine Clear Calc Drug Dose 125.7 ml/min Estimated GFR () 122.3 Estimated GFR (Non- 105.5 BUN/Creatinine Ratio 11.2 Random Glucose 83 mg/dl Lactic Acid Level 1.7 mmol/L Calcium Level 7.7 mg/dl Phosphorus Level 3.7 mg/dl Magnesium Level 1.8 mg/dl Total Bilirubin 1.6 mg/dl Aspartate Amino Transf (AST/SGOT) 54 U/L Alanine Aminotransferase (ALT/SGPT) 59 U/L Alkaline Phosphatase 266 U/L Total Protein 6.0 gm/dl Albumin 2.9 gm/dl Globulin 3.1 gm/dl Albumin/Globulin Ratio 0.9 Test 07/27/17 11:28 07/27/17 13:18 07/27/17 16:36 07/27/17 20:27 Bedside Glucose 238 mg/dl 144 mg/dl 148 mg/dl Ammonia 111.0 umol/L Microbiology Results 07/26/17 Blood Culture, Ordered Pending 07/26/17 Blood Culture, Ordered Pending A/P: NAFLD cirrhosis DM gastroparesis Polypharmacy Admit with nausea - Her nausea may be may be in part functional, related to meds, secondary to DM motility. Her prompt response to her regimen in the hospital as well as the absence of objective evidence of dehydration suggests a functional component to her symptoms. - She has a h/o tremor related to phenothiazine use, although she has not been able to avoid these meds as an outpt - would recommend taper of Phenergan as soon as symptoms allow. EGD if symptoms persist. - She has chronic hyperammonemia, but is currently without clin evidence HE. Cont lactulose, xifaxan for HE; minimize narcotics, BDZ. - Would ask primary service to discuss placement with pt, family.
[2017-07-28] MEDS: D5W AND 1/2NSS + 20MEQ KCL 1,000 ML IV SCH ×2 (00:35→16:52)
[2017-07-28 00:37] VITALS: BP 130/85; PULSE 75; TEMP 36.6; O2SAT 94
[2017-07-28] MEDS: OXYCODONE HCL IR 5 MG TAB (IMMEDIATE RELEASE) PO PRN ×3 (03:58→16:43)
[2017-07-28] MEDS: PROMETHAZINE HCL INJ 12.5 MG in SODIUM CHLORIDE 0.9% 50ML 50 ML IV PRN ×3 (04:02→18:53)
[2017-07-28 05:59] LABS: HEMATOCRIT 25.6 % (37-47); HEMOGLOBIN 9.4 g/dL (12.0-16.0); MEAN CORPUSCULAR HEMOGLOBIN 35.6 pg (25-34); MEAN CORPUSCULAR HGB CONC 36.7 g/dl (32-36); RED CELL DISTRIBUTION WIDTH CV 15.1 % (11.5-14.5); RED CELL DISTRIBUTION WIDTH SD 52.8 fL (36.4-46.3); WHITE BLOOD COUNT 2.99 K/uL (4.8-10.8)
[2017-07-28 06:04] LABS: MEAN PLATELET VOLUME 9.5 fL (7.4-10.4); PLATELET COUNT 83 K/uL (130-400)
[2017-07-28 06:29] LABS: BASO % 1.3 %; BASO ABS # 0.04 K/uL (0-0.2); EOS % 5.7 %; EOS ABS # 0.17 K/uL (0-0.5); LYMPH % 39.1 %; LYMPH ABS # 1.17 K/uL (1.2-3.4); MONO % 11.4 %; MONO ABS # 0.34 K/uL (0.11-0.59); NEUT % 42.5 %; NEUT ABS # 1.27 K/uL (1.4-6.5)
[2017-07-28 06:38] LABS: CALCIUM 7.5 mg/dl (8.5-10.1); CREATININE 0.58 mg/dl (0.60-1.20); PHOSPHORUS 3.3 mg/dl (2.5-4.9); POTASSIUM 3.8 mmol/L (3.5-5.1)
[2017-07-28 08:01] VITALS: BP 114/67; PULSE 88; TEMP 36.8; O2SAT 96
[2017-07-28] MEDS ORDERED: MAGNESIUM SULFATE 1GM / D5W 100 ML IV STA (08:36)
[2017-07-28] MEDS: LACTULOSE SYRUP 20 GM/30 ML UDC PO SCH ×5 (08:46→20:00)
[2017-07-28] MEDS: SPIRONOLACTONE 25 MG TAB PO SCH (08:46)
[2017-07-28] MEDS: MAGNESIUM OXIDE 400 MG TAB PO SCH ×2 (08:47→20:32)
[2017-07-28] MEDS: RIFAXIMIN TAB 550 MG TAB PO SCH ×2 (08:47→20:23)
[2017-07-28] MEDS: TOPIRAMATE 100 MG TAB PO SCH (08:47)
[2017-07-28] MEDS: OXCARBAZEPINE 150 MG TAB PO SCH ×2 (08:47→20:22)
[2017-07-28] MEDS: SERTRALINE HCL 50 MG TAB PO SCH (08:48)
[2017-07-28] MEDS: PANTOprazole INJ 40 MG in SYRINGE 0 ML IV SCH ×2 (08:50→20:23)
[2017-07-28] MEDS: ONDANSETRON INJ 2 MG/ML 2 ML VIAL IV PRN ×2 (08:50→16:01)
[2017-07-28] MEDS: INSULIN ASPART 100 UNITS/ML 3 ML PEN SC SCH ×4 (09:00→20:27)
[2017-07-28] MEDS: TOBRAMYCIN/DEXAMETHASONE OPH SUSP 2.5 ML BTL OTR SCH ×3 (09:01→20:17)
[2017-07-28] MEDS: INSULIN GLARGINE SOLOSTAR 100 UNITS/ML 3 ML PEN SC SCH ×2 (09:04→20:27)
[2017-07-28] MEDS: LEVOTHYROXINE SODIUM INJ 35 MCG in SYRINGE 0 ML IV SCH (09:13)
[2017-07-28] MEDS: LEVETIRACETAM IV 1,000 MG in DEXTROSE 5% 100ML 100 ML IV SCH ×2 (10:44→20:23)
--- NOTE | 2017-07-28 13:44 | Gastroenterology Progress Note ---
Progress Note Date of Service: Jul 28, 2017 Subjective Pt evaluation today including: conversation w/ patient, physical exam, chart review, lab review, review of inpatient medication list Pt reports still having nausea but no vomiting. Loose stools. Review of Systems Constitutional: No fever, No chills Respiratory: No cough Cardiac: No chest pain Abdomen: + pain (mid abd), + nausea, + diarrhea, No vomiting Medications Current Inpatient Medications Medications (Trade) Dose Ordered Sig/Danita Route Start Time Stop Time Status Last Admin Dose Admin Insulin Glargine (Lantus Solostar Pen) 20 units BID SC 07/26/17 21:00 08/25/17 20:59 07/28/17 09:04 20 UNITS Insulin Aspart (novoLOG ASPART) SLIDING SCALE ACHS SC 07/27/17 07:00 08/26/17 06:59 07/27/17 17:02 5 UNITS Lactulose (Chronulac Syrup) 10 gm QID PO 07/26/17 21:00 08/25/17 20:59 07/27/17 17:03 10 GM Mirtazapine (Remeron Tab) 45 mg HS PO 07/26/17 21:00 08/25/17 20:59 07/27/17 21:27 45 MG Oxcarbazepine (Trileptal Tab) 300 mg BID PO 07/26/17 21:00 08/25/17 20:59 07/28/17 08:47 300 MG Oxycodone HCl (Roxicodone Immediate Rel Tab) 5 mg Q6H PRN PO 07/26/17 18:30 08/09/17 18:29 07/28/17 10:08 5 MG Rifaximin (Xifaxan Tab) 550 mg BID PO 07/26/17 21:00 08/25/17 20:59 07/28/17 08:47 550 MG Sertraline HCl (Zoloft Tab) 100 mg QAM PO 07/27/17 09:00 08/26/17 08:59 07/28/17 08:48 100 MG Spironolactone (Aldactone Tab) 12.5 mg QAM PO 07/27/17 09:00 08/26/17 08:59 07/28/17 08:46 12.5 MG Topiramate (Topamax Tab) 75 mg QPM PO 07/26/17 21:00 08/25/17 20:59 07/27/17 21:28 75 MG Topiramate (Topamax Tab) 100 mg QAM PO 07/27/17 09:00 08/26/17 08:59 07/28/17 08:47 100 MG Hydroxyzine HCl (Vistaril Tab) 50 mg HS PO 07/26/17 21:00 08/25/17 20:59 07/27/17 21:29 50 MG Magnesium Oxide (Mag-Ox Tab) 800 mg BID PO 07/26/17 22:00 08/25/17 21:59 07/28/17 08:47 800 MG Pantoprazole Sodium 40 mg/ Syringe 10 ml @ 5 mls/min DAILY@ IV 07/26/17 21:00 08/25/17 20:59 07/28/17 08:50 5 MLS/MIN Promethazine HCl 12.5 mg/Sodium Chloride 50.5 ml @ 204 mls/hr Q6H PRN IV 07/26/17 18:30 08/25/17 18:29 07/28/17 12:29 204 MLS/HR Magnesium Hydroxide (Milk Of Magnesia Susp) 30 ml Q12H PRN PO 07/26/17 18:30 08/25/17 18:29 Zolpidem Tartrate (Ambien Tab) 5 mg HSZ PRN PO 07/26/17 18:30 08/25/17 18:29 Ondansetron HCl (Zofran Inj) 4 mg Q6H PRN IV 07/26/17 18:30 08/25/17 18:29 07/28/17 08:50 4 MG Polyethylene (Miralax Powder Packet) 17 gm DAILY PRN PO 07/26/17 18:30 08/25/17 18:29 Levetiracetam 1000 mg/Dextrose 110 ml @ 440 mls/hr Q12H IV 07/26/17 21:00 08/25/17 20:59 07/28/17 10:44 440 MLS/HR Levothyroxine Sodium 35 mcg/ Syringe 1.75 ml @ 2 mls/min DAILY@09 IV 07/27/17 09:00 08/26/17 08:59 07/28/17 09:13 2 MLS/MIN Miscellaneous (Iv Fluids Completed) 1 ea PRN PRN N/A 07/26/17 20:30 07/26/18 20:29 Potassium Chloride/Dextrose/ Sod Cl 1,000 ml @ 75 mls/hr [id number] IV 07/27/17 09:00 08/26/17 08:59 07/28/17 00:35 75 MLS/HR Rizatriptan Benzoate (Maxalt Tab) 10 mg DAILY PRN PO 07/27/17 14:15 08/26/17 14:14 Tobramycin/ Dexamethasone (Tobradex Oph Susp) 5 drops TID OTR 07/27/17 14:00 08/26/17 13:59 07/28/17 09:01 5 DROPS Sodium Chloride ([place] Nasal Superior) 1 sprays PRN PRN NA 07/27/17 21:30 08/26/17 21:29 Objective Vital Signs Date Time Temp Pulse Resp B/P (MAP) Pulse Ox O2 Delivery O2 Flow Rate FiO2 07/28/17 10:33 Room Air 07/28/17 08:01 36.8 88 18 114/67 (83) 96 Room Air 07/28/17 00:37 36.6 75 20 130/85 (100) 94 Room Air 07/28/17 00:00 Room Air 07/27/17 16:00 Room Air 07/27/17 15:10 36.6 79 16 121/69 (86) 96 Room Air 07/27/17 14:07 36.8 82 19 91 Physical Exam General Appearance: WD/WN, no apparent distress Eyes: normal inspection, PERRL, EOMI Neck: supple, no JVD, trachea midline Respiratory/Chest: normal breath sounds, no respiratory distress, no accessory muscle use Cardiovascular: regular rate, rhythm, no gallop, no murmur Abdomen: normal bowel sounds, non tender, soft Extremities: normal inspection, no pedal edema, no calf tenderness Neurologic/Psych: alert, normal mood/affect, oriented x 3 Skin: normal color, no jaundice, no rash Laboratory Results Last 24 Hours Test 07/27/17 16:36 07/27/17 20:27 07/28/17 05:52 07/28/17 07:56 Bedside Glucose 144 mg/dl 148 mg/dl 106 mg/dl White Blood Count 2.99 K/uL Red Blood Count 2.64 M/uL Hemoglobin 9.4 g/dL Hematocrit 25.6 % Mean Corpuscular Volume 97.0 fL Mean Corpuscular Hemoglobin 35.6 pg Mean Corpuscular Hemoglobin Concent 36.7 g/dl Platelet Count 83 K/uL Mean Platelet Volume 9.5 fL Neutrophils (%) (Auto) 42.5 % Lymphocytes (%) (Auto) 39.1 % Monocytes (%) (Auto) 11.4 % Eosinophils (%) (Auto) 5.7 % Basophils (%) (Auto) 1.3 % Neutrophils # (Auto) 1.27 K/uL Lymphocytes # (Auto) 1.17 K/uL Monocytes # (Auto) 0.34 K/uL Eosinophils # (Auto) 0.17 K/uL Basophils # (Auto) 0.04 K/uL RDW Standard Deviation 52.8 fL RDW Coefficient of Variation 15.1 % Immature Granulocyte % (Auto) 0.0 % Immature Granulocyte # (Auto) 0.00 K/uL Ovalocytes 1+ Sodium Level 141 mmol/L Potassium Level 3.8 mmol/L Chloride Level 111 mmol/L Carbon Dioxide Level 25 mmol/L Anion Gap 5.0 mmol/L Blood Urea Nitrogen 5 mg/dl Creatinine 0.58 mg/dl Est Creatinine Clear Calc Drug Dose 130.1 ml/min Estimated GFR () 123.7 Estimated GFR (Non- 106.7 BUN/Creatinine Ratio 8.4 Random Glucose 98 mg/dl Calcium Level 7.5 mg/dl Phosphorus Level 3.3 mg/dl Magnesium Level 1.5 mg/dl Ammonia 76.0 umol/L Test 07/28/17 11:51 Bedside Glucose 146 mg/dl Assessment and Plan Pt is a 51 y/o female with hx of NAFLD cirrhosis (MELD 10), admitted w n/v which may be multifactorial including functional, med related or DM gastroparesis. She did have loose stools and migraines starting last week. Said had been taking OTC NSAIDs for migraines. Last EGD 08/14 w normal findings. - No new med changes - Will keep NPO after midnight for EGD eval tomorrow by Dr. Fox - She is asking for increased dose of Phenergan but hx of tremors so would recommend tapering Phenergan. I saw and evaluated the patient. She reports having persistent nausea overnight. Unfortunately given the patient 's history I am not certain that we have much to offer her aside from an upper endoscopy to ensure that she does not have evidence of peptic ulcer disease. I suspect that many of her symptoms are related to chronic pain analgesia. Perhaps the pain medications can be tapered and discontinued by the internal medicine service and her primary care provider.
--- NOTE | 2017-07-28 15:19 | Hospitalist Progress Note ---
Hospitalist Progress Note Date of Service Jul 28, 2017. (Karen Bernardo ., JOSH) Subjective Pt evaluation today including: conversation w/ patient, physical exam, chart review, lab review, review of studies, conversation w/ senior solutions consultant, review of inpatient medication list Voiding: no voiding problems Ms. Munson continues to be nauseas with dry heaves, she has also had loose stools and epigastric pain. She has right leg pain. ROS Constitutional: no chills, aches, sweats or fever Respiratory: no sob,cough, sputum, or wheezing Cardiac: no chest pain, palpitations, edema, orthopnea or lightheadedness GI: see HPI : no dysuria or hesitancy Extremities: see HPI Skin: no rash All other systems reviewed and negative (Karen Bernardo CRNP) Medications Medications Administered Medications (Trade) Dose Ordered Sig/Danita Route Start Time Stop Time Status Last Admin Dose Admin Sodium Chloride 500 ml @ 999 mls/hr Q31M STAT IV 07/26/17 14:42 07/26/17 15:12 DC 07/26/17 15:38 999 MLS/HR Ondansetron HCl (Zofran Inj) 4 mg NOW STAT IV 07/26/17 15:54 07/26/17 15:55 DC 07/26/17 16:00 4 MG Lactulose (Chronulac Syrup) 30 gm NOW STAT PO 07/26/17 16:27 07/26/17 16:29 DC 07/26/17 17:09 30 GM Ondansetron HCl (Zofran Inj) 4 mg NOW STAT IV 07/26/17 17:06 07/26/17 17:07 DC 07/26/17 17:09 4 MG Insulin Glargine (Lantus Solostar Pen) 20 units BID SC 07/26/17 21:00 08/25/17 20:59 07/28/17 09:04 20 UNITS Insulin Aspart (novoLOG ASPART) SLIDING SCALE ACHS SC 07/27/17 07:00 08/26/17 06:59 07/27/17 17:02 5 UNITS Lactulose (Chronulac Syrup) 10 gm QID PO 07/26/17 21:00 08/25/17 20:59 07/27/17 17:03 10 GM Mirtazapine (Remeron Tab) 45 mg HS PO 07/26/17 21:00 08/25/17 20:59 07/27/17 21:27 45 MG Oxcarbazepine (Trileptal Tab) 300 mg BID PO 07/26/17 21:00 08/25/17 20:59 07/28/17 08:47 300 MG Oxycodone HCl (Roxicodone Immediate Rel Tab) 5 mg Q6H PRN PO 07/26/17 18:30 08/09/17 18:29 07/28/17 10:08 5 MG Rifaximin (Xifaxan Tab) 550 mg BID PO 07/26/17 21:00 08/25/17 20:59 07/28/17 08:47 550 MG Sertraline HCl (Zoloft Tab) 100 mg QAM PO 07/27/17 09:00 08/26/17 08:59 07/28/17 08:48 100 MG Spironolactone (Aldactone Tab) 12.5 mg QAM PO 07/27/17 09:00 08/26/17 08:59 07/28/17 08:46 12.5 MG Topiramate (Topamax Tab) 75 mg QPM PO 07/26/17 21:00 08/25/17 20:59 07/27/17 21:28 75 MG Topiramate (Topamax Tab) 100 mg QAM PO 07/27/17 09:00 08/26/17 08:59 07/28/17 08:47 100 MG Hydroxyzine HCl (Vistaril Tab) 50 mg HS PO 07/26/17 21:00 08/25/17 20:59 07/27/17 21:29 50 MG Magnesium Oxide (Mag-Ox Tab) 800 mg BID PO 07/26/17 22:00 08/25/17 21:59 07/28/17 08:47 800 MG Pantoprazole Sodium 40 mg/ Syringe 10 ml @ 5 mls/min DAILY@ IV 07/26/17 21:00 08/25/17 20:59 07/28/17 08:50 5 MLS/MIN Promethazine HCl 12.5 mg/Sodium Chloride 50.5 ml @ 204 mls/hr Q6H PRN IV 07/26/17 18:30 08/25/17 18:29 07/28/17 12:29 204 MLS/HR Sodium Chloride 1,000 ml @ 75 mls/hr [id number] IV 07/26/17 18:20 07/27/17 08:05 DC 07/26/17 22:48 75 MLS/HR Ondansetron HCl (Zofran Inj) 4 mg Q6H PRN IV 07/26/17 18:30 08/25/17 18:29 07/28/17 08:50 4 MG Levetiracetam 1000 mg/Dextrose 110 ml @ 440 mls/hr Q12H IV 07/26/17 21:00 08/25/17 20:59 07/28/17 10:44 440 MLS/HR Levothyroxine Sodium 35 mcg/ Syringe 1.75 ml @ 2 mls/min DAILY@09 IV 07/27/17 09:00 08/26/17 08:59 07/28/17 09:13 2 MLS/MIN Potassium Chloride/Dextrose/ Sod Cl 1,000 ml @ 75 mls/hr [id number] IV 07/27/17 09:00 08/26/17 08:59 07/28/17 00:35 75 MLS/HR Tobramycin/ Dexamethasone (Tobradex Oph Susp) 5 drops TID OTR 07/27/17 14:00 08/26/17 13:59 07/28/17 14:16 5 DROPS Magnesium Sulfate 100 ml @ 100 mls/hr NOW STAT IV 07/28/17 08:36 07/28/17 09:35 DC 07/28/17 09:13 100 MLS/HR (Karen Bernardo, JOSH) Objective Vital Signs Date Time Temp Pulse Resp B/P (MAP) Pulse Ox O2 Delivery O2 Flow Rate FiO2 07/28/17 10:33 Room Air 07/28/17 08:01 36.8 88 18 114/67 (83) 96 Room Air 07/28/17 00:37 36.6 75 20 130/85 (100) 94 Room Air 07/28/17 00:00 Room Air 07/27/17 16:00 Room Air (Karen Bernardo, JOSH) Physical Exam Notes: General: no distress Eyes: normal inspection, PERLL Respiratory: chest non tender, clear to auscultation, normal breath sounds, no respiratory distress, no accessory muscle use Cardiac: regular rate and rhythm, no rub or gallop, systolic murmur, no edema, no jvd GI/: active bowel sounds, epigastric pain to palpation, soft, non distended Extremities: normal range of motion, normal strength, non tender Neuro/Psych: alert and oriented x 3, normal mood and affect Skin: normal color, dry (Karen Bernardo, JOSH) Laboratory Results Last 24 Hours Test 07/27/17 16:36 07/27/17 20:27 07/28/17 05:52 07/28/17 07:56 Bedside Glucose 144 mg/dl 148 mg/dl 106 mg/dl White Blood Count 2.99 K/uL Red Blood Count 2.64 M/uL Hemoglobin 9.4 g/dL Hematocrit 25.6 % Mean Corpuscular Volume 97.0 fL Mean Corpuscular Hemoglobin 35.6 pg Mean Corpuscular Hemoglobin Concent 36.7 g/dl Platelet Count 83 K/uL Mean Platelet Volume 9.5 fL Neutrophils (%) (Auto) 42.5 % Lymphocytes (%) (Auto) 39.1 % Monocytes (%) (Auto) 11.4 % Eosinophils (%) (Auto) 5.7 % Basophils (%) (Auto) 1.3 % Neutrophils # (Auto) 1.27 K/uL Lymphocytes # (Auto) 1.17 K/uL Monocytes # (Auto) 0.34 K/uL Eosinophils # (Auto) 0.17 K/uL Basophils # (Auto) 0.04 K/uL RDW Standard Deviation 52.8 fL RDW Coefficient of Variation 15.1 % Immature Granulocyte % (Auto) 0.0 % Immature Granulocyte # (Auto) 0.00 K/uL Ovalocytes 1+ Sodium Level 141 mmol/L Potassium Level 3.8 mmol/L Chloride Level 111 mmol/L Carbon Dioxide Level 25 mmol/L Anion Gap 5.0 mmol/L Blood Urea Nitrogen 5 mg/dl Creatinine 0.58 mg/dl Est Creatinine Clear Calc Drug Dose 130.1 ml/min Estimated GFR () 123.7 Estimated GFR (Non- 106.7 BUN/Creatinine Ratio 8.4 Random Glucose 98 mg/dl Calcium Level 7.5 mg/dl Phosphorus Level 3.3 mg/dl Magnesium Level 1.5 mg/dl Ammonia 76.0 umol/L Test 4/30/18 11:51 Bedside Glucose 146 mg/dl (Karen Bernardo CRNP) Assessment and Plan 51 yo F with history of liver cirrhosis admitted on July 26, 2017 because of severe nausea with failed outpatient Compazine, Phenergan, Zofran, and she cannot take Reglan due to her seizure disorder. Also had early hepatic encephalopathy PMHx of liver cirrhosis secondary to seizure med hepatotoxicity, DMII on insulin , hypothyroidism, seizure disorder, migraines, asthma, parkinsonism, bipolar disorder, depression, chronic pancytopenia, and GERD, traumatic R femoral fracture with intertrochanteric vijaya placed Hepatic encephalopathy secondary to inability to take lactulose, - ammonia level decreased from 140 to 75 - patient alert and oriented - Continue rifaximin, lactulose Severe nausea/dry heaves - GI consult - npo tonight for EGD tomorrow - continue IV phenergan - patient asked for increased dose however given her history of tremor with this medication, will hold off on increase - Continue Protonix IV twice daily - stool cultures - BC ngtd Hypomagnesemia - 1 gm IV mag, 800 mg po - repeat mag in am 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 type 2 on insulin - ss, bsgs ac & hs - bsgs stable Hypothyroidism Continue Synthroid, continue 35 mg IV daily due to poor po intake Seizure disorder, - continue Keppra to IV for now until taking po DVT prophylaxis - no heparin because of platelet is<90 (Karen Bernardo CRNP) ACCESS CLERK Physician Supervision Note: I interviewed and examined the patient. Discussed with Karen Bernardo ACCESS CLERK and agree with findings and plan as documented in the note. Any exceptions or clarifications are listed here: None Patient seems to be in her usual state however she is goes complaining of persistent nausea and back pain she is requesting IV Phenergan and IV hydromorphone by name. The patient has had issues in the past due to her cirrhosis and challenges taking her lactulose at home however her ammonia is about in her usual range for her due to persistent nausea the patient is going to have an upper endoscopy likely on 07/29 I do not see her previous any vomitus labs in the room today Temperature 36 8 pulse 88 respiration 18 BP 114/67 pending studies include infectious workup of stool \She is awake and alert and appropriate her abdomen is with normoactive bowel sounds and soft Patient is here with persistent subjective nausea and vomiting with a history of cirrhosis and previous hepatic encephalopathy which is not present currently patient has refused taking her lactulose today we will continue to encourage good medication compliance and she is scheduled for an EGD to evaluate sources of her nausea on 07/29 Documented By: Erick Rice (Erick Rice M.D.)
[2017-07-28 15:55] VITALS: BP 144/72; PULSE 74; TEMP 36.6; O2SAT 97
[2017-07-28] MEDS: MIRTAZAPINE TAB 15 MG TAB PO SCH (20:24)
[2017-07-28] MEDS: TOPIRAMATE 25 MG TAB PO SCH (20:25)
[2017-07-28] MEDS: hydrOXYzine HCL 25 MG TAB PO SCH (20:27)
[2017-07-29] VITALS (7 sets, daily range): BP systolic 93–148; BP diastolic 49–79; PULSE 73–80; TEMP 36.8; O2SAT 93–100
[2017-07-29] MEDS: OXYCODONE HCL IR 5 MG TAB (IMMEDIATE RELEASE) PO PRN ×3 (00:15→20:47)
[2017-07-29] MEDS: ONDANSETRON INJ 2 MG/ML 2 ML VIAL IV PRN ×4 (00:21→20:47)
[2017-07-29] MEDS: PROMETHAZINE HCL INJ 12.5 MG in SODIUM CHLORIDE 0.9% 50ML 50 ML IV PRN ×4 (02:45→23:52)
[2017-07-29 06:14] LABS: HEMATOCRIT 28.2 % (37-47); HEMOGLOBIN 10.1 g/dL (12.0-16.0); MEAN CELL VOLUME 98.3 fL (80-100); MEAN CORPUSCULAR HEMOGLOBIN 35.2 pg (25-34); MEAN CORPUSCULAR HGB CONC 35.8 g/dl (32-36); RED CELL DISTRIBUTION WIDTH CV 15.1 % (11.5-14.5); RED CELL DISTRIBUTION WIDTH SD 53.9 fL (36.4-46.3); WHITE BLOOD COUNT 3.72 K/uL (4.8-10.8)
[2017-07-29] MEDS: D5W AND 1/2NSS + 20MEQ KCL 1,000 ML IV SCH ×2 (06:26→15:51)
[2017-07-29 06:28] LABS: PLATELET COUNT 95 K/uL (130-400)
[2017-07-29] MEDS: INSULIN ASPART 100 UNITS/ML 3 ML PEN SC SCH ×4 (06:30→20:55)
[2017-07-29 06:48] LABS: CALCIUM 7.4 mg/dl (8.5-10.1); CREATININE 0.62 mg/dl (0.60-1.20); POTASSIUM 4.2 mmol/L (3.5-5.1)
[2017-07-29] MEDS: LACTULOSE SYRUP 20 GM/30 ML UDC PO SCH ×4 (08:00→20:00)
[2017-07-29] MEDS ORDERED: INSULIN GLARGINE SOLOSTAR 100 UNITS/ML 3 ML PEN SC ONE (08:45)
[2017-07-29] MEDS: INSULIN GLARGINE SOLOSTAR 100 UNITS/ML 3 ML PEN SC SCH (09:00)
[2017-07-29] MEDS: PANTOprazole INJ 40 MG in SYRINGE 0 ML IV SCH ×2 (09:04→20:39)
[2017-07-29] MEDS: TOBRAMYCIN/DEXAMETHASONE OPH SUSP 2.5 ML BTL OTR SCH ×3 (09:04→20:33)
[2017-07-29] MEDS: LEVOTHYROXINE SODIUM INJ 35 MCG in SYRINGE 0 ML IV SCH (09:05)
[2017-07-29] MEDS: LEVETIRACETAM IV 1,000 MG in DEXTROSE 5% 100ML 100 ML IV SCH ×2 (09:58→20:39)
--- NOTE | 2017-07-29 10:59 | Hospitalist Progress Note ---
Hospitalist Progress Note Date of Service July 29, 2017. (Karen Bernardo, JOSH) Subjective Pt evaluation today including: conversation w/ patient, physical exam, chart review, lab review, review of inpatient medication list Voiding: no voiding problems Ms. Munson reports some pain in her abdomen and hip. She continues to be nauseas with dry heaves ROS Constitutional: no chills, aches, sweats or fever Respiratory: no sob,cough, sputum, or wheezing Cardiac: no chest pain, palpitations, edema, orthopnea or lightheadedness GI: see HPI : no dysuria or hesitancy Extremities: no joint pain or weakness Skin: no rash All other systems reviewed and negative (Karen Bernardo CRNP) Medications Medications Administered Medications (Trade) Dose Ordered Sig/Danita Route Start Time Stop Time Status Last Admin Dose Admin Sodium Chloride 500 ml @ 999 mls/hr Q31M STAT IV 07/26/17 14:42 07/26/17 15:12 DC 07/26/17 15:38 999 MLS/HR Ondansetron HCl (Zofran Inj) 4 mg NOW STAT IV 07/26/17 15:54 07/26/17 15:55 DC 07/26/17 16:00 4 MG Lactulose (Chronulac Syrup) 30 gm NOW STAT PO 07/26/17 16:27 07/26/17 16:29 DC 07/26/17 17:09 30 GM Ondansetron HCl (Zofran Inj) 4 mg NOW STAT IV 07/26/17 17:06 07/26/17 17:07 DC 07/26/17 17:09 4 MG Insulin Glargine (Lantus Solostar Pen) 20 units BID SC 07/26/17 21:00 08/25/17 20:59 Future Hold 07/28/17 20:27 20 UNITS Insulin Aspart (novoLOG ASPART) SLIDING SCALE ACHS SC 07/27/17 07:00 08/26/17 06:59 07/28/17 20:27 2 UNITS Lactulose (Chronulac Syrup) 10 gm QID PO 07/26/17 21:00 08/25/17 20:59 07/28/17 17:49 10 GM Mirtazapine (Remeron Tab) 45 mg HS PO 07/26/17 21:00 08/25/17 20:59 07/28/17 20:24 45 MG Oxcarbazepine (Trileptal Tab) 300 mg BID PO 07/26/17 21:00 08/25/17 20:59 07/28/17 20:22 300 MG Oxycodone HCl (Roxicodone Immediate Rel Tab) 5 mg Q6H PRN PO 07/26/17 18:30 08/09/17 18:29 07/29/17 00:15 5 MG Rifaximin (Xifaxan Tab) 550 mg BID PO 07/26/17 21:00 08/25/17 20:59 07/28/17 20:23 550 MG Sertraline HCl (Zoloft Tab) 100 mg QAM PO 07/27/17 09:00 08/26/17 08:59 07/28/17 08:48 100 MG Spironolactone (Aldactone Tab) 12.5 mg QAM PO 07/27/17 09:00 08/26/17 08:59 07/28/17 08:46 12.5 MG Topiramate (Topamax Tab) 75 mg QPM PO 07/26/17 21:00 08/25/17 20:59 07/28/17 20:25 75 MG Topiramate (Topamax Tab) 100 mg QAM PO 07/27/17 09:00 08/26/17 08:59 07/28/17 08:47 100 MG Hydroxyzine HCl (Vistaril Tab) 50 mg HS PO 07/26/17 21:00 08/25/17 20:59 07/28/17 20:27 50 MG Magnesium Oxide (Mag-Ox Tab) 800 mg BID PO 07/26/17 22:00 08/25/17 21:59 07/28/17 20:32 800 MG Pantoprazole Sodium 40 mg/ Syringe 10 ml @ 5 mls/min DAILY@ IV 07/26/17 21:00 08/25/17 20:59 07/29/17 09:04 5 MLS/MIN Promethazine HCl 12.5 mg/Sodium Chloride 50.5 ml @ 204 mls/hr Q6H PRN IV 07/26/17 18:30 08/25/17 18:29 07/29/17 09:05 204 MLS/HR Sodium Chloride 1,000 ml @ 75 mls/hr [id number] IV 07/26/17 18:20 07/27/17 08:05 DC 07/26/17 22:48 75 MLS/HR Ondansetron HCl (Zofran Inj) 4 mg Q6H PRN IV 07/26/17 18:30 08/25/17 18:29 07/29/17 06:23 4 MG Levetiracetam 1000 mg/Dextrose 110 ml @ 440 mls/hr Q12H IV 07/26/17 21:00 08/25/17 20:59 07/29/17 09:58 440 MLS/HR Levothyroxine Sodium 35 mcg/ Syringe 1.75 ml @ 2 mls/min DAILY@09 IV 07/27/17 09:00 08/26/17 08:59 07/29/17 09:05 2 MLS/MIN Potassium Chloride/Dextrose/ Sod Cl 1,000 ml @ 75 mls/hr [id number] IV 07/27/17 09:00 08/26/17 08:59 07/29/17 06:26 75 MLS/HR Tobramycin/ Dexamethasone (Tobradex Oph Susp) 5 drops TID OTR 07/27/17 14:00 08/26/17 13:59 07/29/17 09:04 5 DROPS Magnesium Sulfate 100 ml @ 100 mls/hr NOW STAT IV 07/28/17 08:36 07/28/17 09:35 DC 07/28/17 09:13 100 MLS/HR Insulin Glargine (Lantus Solostar Pen) 10 units ONE ONCE SC 07/29/17 08:45 07/29/17 08:51 DC 07/29/17 09:06 10 UNITS (Karen Bernardo, [employer]) Objective Vital Signs Date Time Temp Pulse Resp B/P (MAP) Pulse Ox O2 Delivery O2 Flow Rate FiO2 07/29/17 10:26 Room Air 07/29/17 07:43 36.8 80 18 106/65 (79) 97 Room Air 07/29/17 00:00 36.8 79 20 148/79 (102) 93 Room Air 07/29/17 00:00 Room Air 07/28/17 16:00 Room Air 07/28/17 15:55 36.6 74 18 144/72 (96) 97 Room Air (Karen Bernardo CRNP) Physical Exam Notes: General: no distress Eyes: normal inspection, PERLL Respiratory: chest non tender, clear to auscultation, normal breath sounds, no respiratory distress, no accessory muscle use Cardiac: regular rate and rhythm, no rub or gallop, no murmur, no edema, no jvd GI/: active bowel sounds, epigastric, left lower quadrant abdominal pain to palpation, soft, non distended Extremities: normal range of motion, normal strength, non tender Neuro/Psych: alert and oriented x 3, normal mood and affect Skin: normal color, dry (Karen Bernardo CRNP) Laboratory Results Last 24 Hours Test 07/28/17 11:51 07/28/17 16:40 07/28/17 19:32 07/29/17 06:00 Bedside Glucose 146 mg/dl 100 mg/dl 169 mg/dl White Blood Count 3.72 K/uL Red Blood Count 2.87 M/uL Hemoglobin 10.1 g/dL Hematocrit 28.2 % Mean Corpuscular Volume 98.3 fL Mean Corpuscular Hemoglobin 35.2 pg Mean Corpuscular Hemoglobin Concent 35.8 g/dl RDW Standard Deviation 53.9 fL RDW Coefficient of Variation 15.1 % Platelet Count 95 K/uL Mean Platelet Volume 10.0 fL Sodium Level 139 mmol/L Potassium Level 4.2 mmol/L Chloride Level 108 mmol/L Carbon Dioxide Level 26 mmol/L Anion Gap 5.0 mmol/L Blood Urea Nitrogen 3 mg/dl Creatinine 0.62 mg/dl Est Creatinine Clear Calc Drug Dose 121.7 ml/min Estimated GFR () 121.0 Estimated GFR (Non- 104.4 BUN/Creatinine Ratio 5.3 Random Glucose 110 mg/dl Calcium Level 7.4 mg/dl Magnesium Level 1.6 mg/dl Test 07/29/17 06:22 07/29/17 07:33 Bedside Glucose 93 mg/dl 103 mg/dl (Karen Bernardo CRNP) Assessment and Plan 51 yo F with history of liver cirrhosis admitted on July 26, 2017 because of severe nausea with failed outpatient Compazine, Phenergan, Zofran, and she cannot take Reglan due to her seizure disorder. Also had early hepatic encephalopathy PMHx of liver cirrhosis secondary to seizure med hepatotoxicity, DMII on insulin , hypothyroidism, seizure disorder, migraines, asthma, parkinsonism, bipolar disorder, depression, chronic pancytopenia, and GERD, traumatic R femoral fracture with intertrochanteric vijaya placed Hepatic encephalopathy secondary to inability to take lactulose, - resolved - ammonia level decreased from 140 to 75 - Continue rifaximin, actulose Severe nausea/dry heaves - GI consult - npo for EGD today - continue IV phenergan - patient asked for increased dose however given her history of tremor with this medication, will hold off on increase - Continue Protonix IV twice daily - stool cultures - BC ngtd Hypomagnesemia - 1 gm IV mag again this morning - repeat mag in am 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 type 2 on insulin - ss, bsgs ac & hs - bsgs stable Hypothyroidism Continue Synthroid, continue 35 mg IV daily due to poor po intake Seizure disorder, - continue Keppra to IV for now until taking po DVT prophylaxis - no heparin because of platelet is<90 (Karen Bernardo ., JOSH) MANAGER PLUMBING Physician Supervision Note: I discussed with Karen Bernardo MANAGER PLUMB[employer] and agree with findings and plan as documented in the note. Any exceptions or clarifications are listed here: None Patient seems to be in her usual state she does have some persistent nausea and back pain she is continuing to request IV Phenergan and IV hydromorphone by name. The patient has had issues in the past due to her cirrhosis and challenges taking her lactulose at home however her ammonia is about in her usual range for her due to persistent nausea patient s/p uneventful upper endoscopy 07/29 Patient is here with persistent subjective nausea and vomiting with a history of cirrhosis and previous hepatic encephalopathy which is not present currently patient has refused taking her lactulose at times we continue to encourage good medication compliance and she has not had a defined origin of her nausea at this time Documented By: Erick Rice (Erick Rice M.D.)
[2017-07-29] MEDS: MAGNESIUM SULFATE 1GM / D5W 100 ML IV SCH ×2 (11:19→13:25)
[2017-07-29] MEDS ORDERED: LIDOCAINE HCL 2% 2 ML VIAL (20MG/ML) ONE (11:38)
[2017-07-29] MEDS ORDERED: PROPOFOL IV EMULSION 10 MG/ML 20 ML VIAL ONE (11:38)
--- NOTE | 2017-07-29 11:58 | GI REPORT ---
Patient Name: Marcelle Munson Procedure Date: 07/29/2017 11:38 AM Date of : 1965 Admit Type: Inpatient Age: 51 Gender: Female Attending MD: Librado Fox DO Procedure: Upper GI endoscopy Providers: Librado Fox DO Referring MD: Patti Pantoja MD Indications: Nausea Medicines: Monitored Anesthesia Care Complications: No immediate complications. Estimated blood loss: Minimal. Estimated Blood Loss: Estimated blood loss was minimal. Procedure: Pre-Anesthesia Assessment: - Prior to the procedure, a History and Physical was performed, and patient medications, allergies and sensitivities were reviewed. The patient's tolerance of previous anesthesia was reviewed. - The risks and benefits of the procedure and the sedation options and risks were discussed with the patient. All questions were answered and informed consent was obtained. - Patient identification and proposed procedure were verified prior to the procedure by the physician, the nurse and the assistant store manager. The procedure was verified in the procedure room. - Pre-procedure physical examination revealed no contraindications to sedation. - ASA Grade Assessment: III - A patient with severe systemic disease. - After reviewing the risks and benefits, the patient was deemed in satisfactory condition to undergo the procedure. - The anesthesia plan was to use monitored anesthesia care (MAC). - Immediately prior to administration of medications, the patient was re-assessed for adequacy to receive sedatives. - The heart rate, respiratory rate, oxygen saturations, blood pressure, adequacy of pulmonary ventilation, and response to care were monitored throughout the procedure. - The physical status of the patient was re-assessed after the procedure. After obtaining informed consent, the endoscope was passed under direct vision. Throughout the procedure, the patient's blood pressure, pulse, and oxygen saturations were monitored continuously. The Scope was introduced through the mouth, and advanced to the third part of duodenum. The upper GI endoscopy was accomplished without difficulty. The patient tolerated the procedure well. Findings: The examined esophagus was normal. The Z-line was regular and was found 35 cm from the incisors. The entire examined stomach was normal. Biopsies were taken with a cold forceps for histology. Estimated blood loss was minimal. The examined duodenum was normal. Biopsies were taken with a cold forceps for histology. Estimated blood loss was minimal. Impression: - Normal esophagus. - Z-line regular, 35 cm from the incisors. - Normal stomach. Biopsied. - Normal examined duodenum. Biopsied. Recommendation: - Return patient to [facility] for [facility] care. - Advance diet as tolerated today. - Await pathology results. - repeat EGD in 1.5 years for varices screening - symptoms likely medication related (perhaps her SSRI or pain medications) Librado Fox D.O. Librado Fox, 07/29/2017 11:57:59 AM This report has been signed electronically. Note Initiated On: 07/29/2017 11:38 AM Number of Addenda: 0 I attest to the content of the Intraoperative Record and orders documented therein, exceptions below {[id number]}
--- NOTE | 2017-07-29 12:40 | Progress Note ---
Progress Note Date of Service July 29, 2017. Progress Note The patient underwent an upper endoscopy this afternoon. The findings were notable for normal esophagus stomach and duodenum. We did do random biopsies from the duodenum and stomach. Impression: Patient with a history of nausea most likely related to her use of narcotics or perhaps another medication such as Zoloft. At this time I would suggest that the narcotics be discontinued unless there is definitive need for them. Please call with any questions or concerns GI to sign off
--- NOTE | 2017-07-29 13:28 | Anesthesiology Progress Note ---
Anesthesia Post Op Note Date & Time July 29, 2017 at 13:28 Vital Signs Pain Intensity: 0 Vital Signs Past 12 Hours Date Time Temp Pulse Resp B/P (MAP) Pulse Ox O2 Delivery O2 Flow Rate FiO2 07/29/17 13:27 73 16 93/58 (70) 93 Room Air 07/29/17 12:58 36.8 73 18 97/49 (65) 93 Room Air 07/29/17 12:30 76 16 124/58 (80) 95 Room Air 07/29/17 12:15 79 16 119/60 (79) 95 Room Air 07/29/17 12:00 74 16 107/56 (73) 96 Room Air 07/29/17 11:27 37.4 80 16 132/86 (101) 95 Room Air 07/29/17 10:26 Room Air 07/29/17 07:43 36.8 80 18 106/65 (79) 97 Room Air Notes Mental Status: alert / awake / arousable, participated in evaluation Pt Amnestic to Procedure: Yes Nausea / Vomiting: adequately controlled Pain: adequately controlled Airway Patency, RR, SpO2: stable & adequate BP & HR: stable & adequate Hydration State: stable & adequate Anesthetic Complications: no major complications apparent
[2017-07-29] MEDS: SPIRONOLACTONE 25 MG TAB PO SCH (14:24)
[2017-07-29] MEDS: SERTRALINE HCL 50 MG TAB PO SCH (14:25)
[2017-07-29] MEDS: RIFAXIMIN TAB 550 MG TAB PO SCH ×2 (14:25→20:39)
[2017-07-29] MEDS: TOPIRAMATE 100 MG TAB PO SCH (14:25)
[2017-07-29] MEDS: MAGNESIUM OXIDE 400 MG TAB PO SCH ×2 (14:25→20:55)
[2017-07-29] MEDS: OXCARBAZEPINE 150 MG TAB PO SCH ×2 (14:25→20:38)
[2017-07-29] MEDS: MIRTAZAPINE TAB 15 MG TAB PO SCH (20:40)
[2017-07-29] MEDS: hydrOXYzine HCL 25 MG TAB PO SCH (20:42)
[2017-07-29] MEDS: TOPIRAMATE 25 MG TAB PO SCH (20:42)
[2017-07-30 02:06] VITALS: BP 154/82; PULSE 88; TEMP 36.9; O2SAT 98
[2017-07-30] MEDS ORDERED: OXYCODONE HCL IR 5 MG TAB (IMMEDIATE RELEASE) PO STA (02:09)
[2017-07-30] MEDS: OXYCODONE HCL IR 5 MG TAB (IMMEDIATE RELEASE) PO PRN ×3 (04:01→17:10)
[2017-07-30] MEDS: D5W AND 1/2NSS + 20MEQ KCL 1,000 ML IV SCH ×2 (05:28→17:05)
[2017-07-30 06:23] LABS: CALCIUM 7.2 mg/dl (8.5-10.1); CREATININE 0.63 mg/dl (0.60-1.20); POTASSIUM 3.9 mmol/L (3.5-5.1)
--- NOTE | 2017-07-30 06:51 | DIAGNOSTIC IMAGING REPORT ---
THORACOLUMBAR SPINE 2 VIEWS CLINICAL HISTORY: fall trauma. Pain. COMPARISON STUDY: 05/14/2016 FINDINGS: Mild generalized nonobstructive ileus. Air-filled colon as well as small bowel. Patient is status post right hip pinning. Degenerative change throughout the entire lumbar region. Congenital and/or degenerative fusion of T12-L2. IMPRESSION: Generalized degenerative change of the low thoracic and lumbar region as discussed. No acute bony abnormality. Mild generalized nonobstructive ileus. The above report was generated using voice recognition software. It may contain grammatical, syntax or spelling errors. Electronically signed by: Kenroy Yates M.D. 07/30/2017 6:49 AM Dictated Date/Time: 07/30/2017 6:48 AM
[2017-07-30 07:48] VITALS: BP 123/76; PULSE 80; TEMP 36.6; O2SAT 98
[2017-07-30] MEDS: LACTULOSE SYRUP 20 GM/30 ML UDC PO SCH ×4 (07:48→19:43)
[2017-07-30] MEDS: TOPIRAMATE 100 MG TAB PO SCH (07:49)
[2017-07-30] MEDS: RIFAXIMIN TAB 550 MG TAB PO SCH ×2 (07:49→20:30)
[2017-07-30] MEDS: SPIRONOLACTONE 25 MG TAB PO SCH (07:49)
[2017-07-30] MEDS: SERTRALINE HCL 50 MG TAB PO SCH (07:49)
[2017-07-30] MEDS: OXCARBAZEPINE 150 MG TAB PO SCH ×2 (07:49→20:30)
[2017-07-30] MEDS: TOBRAMYCIN/DEXAMETHASONE OPH SUSP 2.5 ML BTL OTR SCH ×3 (07:50→20:31)
[2017-07-30] MEDS: MAGNESIUM OXIDE 400 MG TAB PO SCH ×2 (07:50→21:26)
[2017-07-30 08:40] VITALS: O2SAT 98
[2017-07-30] MEDS: INSULIN ASPART 100 UNITS/ML 3 ML PEN SC SCH ×4 (08:44→20:59)
[2017-07-30] MEDS: PANTOprazole INJ 40 MG in SYRINGE 0 ML IV SCH ×2 (09:14→21:26)
[2017-07-30] MEDS: LEVOTHYROXINE SODIUM INJ 35 MCG in SYRINGE 0 ML IV SCH (09:14)
[2017-07-30] MEDS: LEVETIRACETAM IV 1,000 MG in DEXTROSE 5% 100ML 100 ML IV SCH (09:14)
[2017-07-30] MEDS: PROMETHAZINE HCL INJ 12.5 MG in SODIUM CHLORIDE 0.9% 50ML 50 ML IV PRN ×2 (10:19→17:37)
--- NOTE | 2017-07-30 14:09 | Hospitalist Progress Note ---
Hospitalist Progress Note Date of Service July 30, 2017. (Karen Bernardo ., JOSH) Subjective Pt evaluation today including: conversation w/ patient, physical exam, chart review, lab review, review of studies, review of inpatient medication list Voiding: no voiding problems Ms. Munson is having pain in her left flank secondary to a fall last night which she believes was a seizure. It was witnessed by nursing in the bathroom where patient fell and hit her back on the sink. Per nursing note, there was no LOC. She continues to have some nausea and dry heaves but was able to eat breakfast ROS Constitutional: no chills, aches, sweats or fever Respiratory: no sob,cough, sputum, or wheezing Cardiac: no chest pain, palpitations, edema, orthopnea or lightheadedness GI: no abdominal pain, nausea, vomiting, diarrhea or constipation : no dysuria or hesitancy Extremities: no joint pain or weakness Skin: no rash All other systems reviewed and negative (Karen Bernardo CRNP) Medications Medications Administered Medications (Trade) Dose Ordered Sig/Danita Route Start Time Stop Time Status Last Admin Dose Admin Sodium Chloride 500 ml @ 999 mls/hr Q31M STAT IV 07/26/17 14:42 07/26/17 15:12 DC 07/26/17 15:38 999 MLS/HR Ondansetron HCl (Zofran Inj) 4 mg NOW STAT IV 07/26/17 15:54 07/26/17 15:55 DC 07/26/17 16:00 4 MG Lactulose (Chronulac Syrup) 30 gm NOW STAT PO 07/26/17 16:27 07/26/17 16:29 DC 07/26/17 17:09 30 GM Ondansetron HCl (Zofran Inj) 4 mg NOW STAT IV 07/26/17 17:06 07/26/17 17:07 DC 07/26/17 17:09 4 MG Insulin Glargine (Lantus Solostar Pen) 20 units BID SC 07/26/17 21:00 08/25/17 20:59 Future Hold 07/28/17 20:27 20 UNITS Insulin Aspart (novoLOG ASPART) SLIDING SCALE ACHS SC 07/27/17 07:00 08/26/17 06:59 07/30/17 12:27 4 UNITS Lactulose (Chronulac Syrup) 10 gm QID PO 07/26/17 21:00 08/25/17 20:59 07/30/17 07:48 10 GM Mirtazapine (Remeron Tab) 45 mg HS PO 07/26/17 21:00 08/25/17 20:59 07/29/17 20:40 45 MG Oxcarbazepine (Trileptal Tab) 300 mg BID PO 07/26/17 21:00 08/25/17 20:59 07/30/17 07:49 300 MG Oxycodone HCl (Roxicodone Immediate Rel Tab) 5 mg Q6H PRN PO 07/26/17 18:30 08/09/17 18:29 07/30/17 10:19 5 MG Rifaximin (Xifaxan Tab) 550 mg BID PO 07/26/17 21:00 08/25/17 20:59 07/30/17 07:49 550 MG Sertraline HCl (Zoloft Tab) 100 mg QAM PO 07/27/17 09:00 08/26/17 08:59 07/30/17 07:49 100 MG Spironolactone (Aldactone Tab) 12.5 mg QAM PO 07/27/17 09:00 08/26/17 08:59 07/30/17 07:49 12.5 MG Topiramate (Topamax Tab) 75 mg QPM PO 07/26/17 21:00 08/25/17 20:59 07/29/17 20:42 75 MG Topiramate (Topamax Tab) 100 mg QAM PO 07/27/17 09:00 08/26/17 08:59 07/30/17 07:49 100 MG Hydroxyzine HCl (Vistaril Tab) 50 mg HS PO 07/26/17 21:00 08/25/17 20:59 07/29/17 20:42 50 MG Magnesium Oxide (Mag-Ox Tab) 800 mg BID PO 07/26/17 22:00 08/25/17 21:59 07/30/17 07:50 800 MG Pantoprazole Sodium 40 mg/ Syringe 10 ml @ 5 mls/min DAILY@09,21 IV 07/26/17 21:00 08/25/17 20:59 5/2/18 09:14 5 MLS/MIN Promethazine HCl 12.5 mg/Sodium Chloride 50.5 ml @ 204 mls/hr Q6H PRN IV 07/26/17 18:30 08/25/17 18:29 07/30/17 10:19 204 MLS/HR Sodium Chloride 1,000 ml @ 75 mls/hr [id number] IV 07/26/17 18:20 07/27/17 08:05 DC 07/26/17 22:48 75 MLS/HR Zolpidem Tartrate (Ambien Tab) 5 mg HSZ PRN PO 07/26/17 18:30 08/25/17 18:29 07/30/17 00:00 5 MG Ondansetron HCl (Zofran Inj) 4 mg Q6H PRN IV 07/26/17 18:30 08/25/17 18:29 07/29/17 20:47 4 MG Levetiracetam 1000 mg/Dextrose 110 ml @ 440 mls/hr Q12H IV 07/26/17 21:00 07/30/17 11:15 DC 07/30/17 09:14 440 MLS/HR Levothyroxine Sodium 35 mcg/ Syringe 1.75 ml @ 2 mls/min DAILY@09 IV 07/27/17 09:00 08/26/17 08:59 07/30/17 09:14 2 MLS/MIN Potassium Chloride/Dextrose/ Sod Cl 1,000 ml @ 75 mls/hr [id number] IV 07/27/17 09:00 08/26/17 08:59 07/30/17 05:28 75 MLS/HR Tobramycin/ Dexamethasone (Tobradex Oph Susp) 5 drops TID OTR 07/27/17 14:00 08/26/17 13:59 07/30/17 07:50 5 DROPS Magnesium Sulfate 100 ml @ 100 mls/hr NOW STAT IV 07/28/17 08:36 07/28/17 09:35 DC 07/28/17 09:13 100 MLS/HR Diphenhydramine HCl (Benadryl Cap) 25 mg Q8 PRN PO 07/28/17 23:15 08/27/17 23:14 07/30/17 09:25 25 MG Heparin Sodium (Porcine) (Heparin 100 Unit/ml 5ml Flush) 5 ml PRN PRN IV 07/28/17 23:30 08/27/17 23:29 07/30/17 02:12 5 ML Magnesium Sulfate 100 ml @ 100 mls/hr Q1H IV 07/29/17 08:20 07/29/17 10:19 DC 07/29/17 13:25 100 MLS/HR Insulin Glargine (Lantus Solostar Pen) 10 units ONE ONCE SC 07/29/17 08:45 07/29/17 08:51 DC 07/29/17 09:06 10 UNITS Oxycodone HCl (Roxicodone Immediate Rel Tab) 5 mg NOW STAT PO 07/30/17 02:09 07/30/17 02:18 DC 07/30/17 02:27 5 MG (Karen Bernardo CRNP) Objective Vital Signs Date Time Temp Pulse Resp B/P (MAP) Pulse Ox O2 Delivery O2 Flow Rate FiO2 07/30/17 08:40 98 Room Air 07/30/17 07:48 36.6 80 18 123/76 (92) 98 Room Air 07/30/17 02:06 36.9 88 22 154/82 (106) 98 Room Air 07/30/17 00:00 Nasal Cannula 1.0 07/29/17 23:40 36.8 80 18 112/66 (81) 96 Room Air 07/29/17 16:00 Room Air 07/29/17 15:38 36.8 76 20 138/70 (92) 100 Room Air 07/29/17 14:29 102/61 (75) 95 Room Air (Karen Bernardo CRNP) Physical Exam Notes: General: no distress Eyes: normal inspection, PERLL Respiratory: chest non tender, clear to auscultation, normal breath sounds, no respiratory distress, no accessory muscle use Cardiac: regular rate and rhythm, no rub or gallop, systolic murmur, no edema, no jvd GI/: active bowel sounds, no abd pain or tenderness, soft, non distended Extremities: normal range of motion, normal strength, non tender Neuro/Psych: alert and oriented x 3, normal mood and affect Skin: normal color, dry (Karen Bernardo CRNP) Laboratory Results Last 24 Hours Test 07/29/17 16:05 07/29/17 20:33 07/30/17 05:45 07/30/17 07:39 Bedside Glucose 129 mg/dl 129 mg/dl 142 mg/dl Sodium Level 131 mmol/L Potassium Level 3.9 mmol/L Chloride Level 102 mmol/L Carbon Dioxide Level 25 mmol/L Anion Gap 4.0 mmol/L Blood Urea Nitrogen 4 mg/dl Creatinine 0.63 mg/dl Est Creatinine Clear Calc Drug Dose 119.7 ml/min Estimated GFR () 120.4 Estimated GFR (Non- 103.9 BUN/Creatinine Ratio 6.1 Random Glucose 163 mg/dl Calcium Level 7.2 mg/dl Test 07/30/17 11:21 Bedside Glucose 172 mg/dl (Karen Bernardo ., JOSH) Assessment and Plan 51 yo F with history of liver cirrhosis admitted on July 26, 2017 because of severe nausea with failed outpatient Compazine, Phenergan, Zofran, and she cannot take Reglan due to her seizure disorder. Also had early hepatic encephalopathy PMHx of liver cirrhosis secondary to seizure med hepatotoxicity, DMII on insulin , hypothyroidism, seizure disorder, migraines, asthma, parkinsonism, bipolar disorder, depression, chronic pancytopenia, and GERD, traumatic R femoral fracture with intertrochanteric vijaya placed Hepatic encephalopathy secondary to inability to take lactulose, - resolved - ammonia level decreased from 140 to 75 - Continue rifaximin, lactulose Severe nausea/dry heaves - GI consult - EGD was normal - continue IV phenergan - patient asked for increased dose however given her history of tremor with this medication, will hold off on increase - Continue Protonix IV twice daily - stool cultures negative - ngtd - nausea somewhat improved - Xray overnight did show a mild non obstructing ileus Back pain secondary to fall - continue home dose oxycodone - patient requested IV dilaudid, I did discuss with her that increasing her narcotic intake would set her back as far as her GI issues go especially in regards to nausea and gastroparesis - lidocaine patches Hypomagnesemia - 1 gm IV mag again this morning - repeat mag in am 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 type 2 on insulin - ss, bsgs ac & hs - bsgs stable Hypothyroidism Continue Synthroid, continue 35 mg IV daily due to poor po intake Seizure disorder, - patient is concerned that her IV keppra dose is too low - will change back to po dose as patient is taking po medications now - doubt event last night was seizure activity given nurses description of events. DVT prophylaxis - no heparin because of platelet is<90 (Karen Bernardo ., JOSH) BRANCH OFFICE ADMINISTRATOR Physician Supervision Note: I discussed with Karen Bernardo BRANCH OFFICE ADMINISTRATOR and agree with findings and plan as documented in the note. Any exceptions or clarifications are listed here: None Patient seems to be in her usual state she does have some persistent nausea and back pain she continues to request IV Phenergan and IV hydromorphone by name. I informed her that she would not get any. The patient has had issues in the past due to her cirrhosis and challenges taking her lactulose at home however her ammonia is about in her usual range for her due to persistent nausea patient s/p uneventful upper endoscopy 07/29 Patient is here with persistent subjective nausea and vomiting with a history of cirrhosis and previous hepatic encephalopathy which is not present currently patient has refused taking her lactulose at times we continue to encourage good medication compliance and she has not had a defined origin of her nausea at this time. She did have a fall overnight without obvious events. Xrays did not show any easily obvious changes, will continue with supportive care until we have placement for subacute rehab Documented By: Erick Rice (Erick Rice M.D.)
[2017-07-30 16:50] VITALS: BP 121/69; PULSE 83; TEMP 36.9; O2SAT 93
[2017-07-30] MEDS: ONDANSETRON INJ 2 MG/ML 2 ML VIAL IV PRN (19:41)
[2017-07-30] MEDS: hydrOXYzine HCL 25 MG TAB PO SCH (20:29)
[2017-07-30] MEDS: MIRTAZAPINE TAB 15 MG TAB PO SCH (20:29)
[2017-07-30] MEDS: LEVETIRACETAM 500 MG TAB PO SCH (20:30)
[2017-07-30] MEDS: TOPIRAMATE 25 MG TAB PO SCH (20:31)
[2017-07-30] MEDS: ZOLPIDEM TARTRATE 5 MG TAB PO PRN ×2 (20:55)
[2017-07-31] MEDS: PROMETHAZINE HCL INJ 12.5 MG in SODIUM CHLORIDE 0.9% 50ML 50 ML IV PRN ×3 (00:10→16:41)
[2017-07-31] MEDS: OXYCODONE HCL IR 5 MG TAB (IMMEDIATE RELEASE) PO PRN ×4 (00:12→22:03)
[2017-07-31 00:23] VITALS: BP 127/72; PULSE 76; TEMP 36.9; O2SAT 97
[2017-07-31] MEDS: ONDANSETRON INJ 2 MG/ML 2 ML VIAL IV PRN (03:57)
[2017-07-31] MEDS: D5W AND 1/2NSS + 20MEQ KCL 1,000 ML IV SCH ×2 (05:48→19:54)
[2017-07-31 06:21] LABS: CREATININE 0.52 mg/dl (0.60-1.20)
[2017-07-31 07:23] VITALS: BP 106/69; PULSE 76; TEMP 36.7; O2SAT 99
[2017-07-31] MEDS: MAGNESIUM OXIDE 400 MG TAB PO SCH ×2 (08:50→22:16)
[2017-07-31] MEDS: PANTOprazole INJ 40 MG in SYRINGE 0 ML IV SCH ×2 (08:50→21:49)
[2017-07-31] MEDS: RIFAXIMIN TAB 550 MG TAB PO SCH ×2 (08:52→21:46)
[2017-07-31] MEDS: TOPIRAMATE 100 MG TAB PO SCH (08:53)
[2017-07-31] MEDS: SERTRALINE HCL 50 MG TAB PO SCH (08:53)
[2017-07-31] MEDS: SPIRONOLACTONE 25 MG TAB PO SCH (08:58)
[2017-07-31] MEDS: LACTULOSE SYRUP 20 GM/30 ML UDC PO SCH ×4 (09:10→20:00)
[2017-07-31] MEDS: LEVOTHYROXINE SODIUM INJ 35 MCG in SYRINGE 0 ML IV SCH (09:18)
[2017-07-31] MEDS: INSULIN ASPART 100 UNITS/ML 3 ML PEN SC SCH ×4 (09:29→22:15)
[2017-07-31] MEDS ORDERED: ONDANSETRON INJ 2 MG/ML 2 ML VIAL IV PRN (09:45)
--- NOTE | 2017-07-31 10:17 | DIAGNOSTIC IMAGING REPORT ---
WRIST MIN 3 VIEWS ROUTINE CLINICAL HISTORY: fall ulnar side pain trauma. Pain. COMPARISON: None. DISCUSSION: Generalized degenerative change. Osteopenia. No acute bony abnormality. Mild soft tissue edema. IMPRESSION: Degenerative change. Osteopenia. Soft tissue edema. The above report was generated using voice recognition software. It may contain grammatical, syntax or spelling errors. Electronically signed by: Kenroy Yates M.D. 07/31/2017 10:16 AM Dictated Date/Time: 07/31/2017 10:12 AM
[2017-07-31] MEDS ORDERED: NURSING VERBAL MED ORDER ONE (11:15)
[2017-07-31] MEDS: OXCARBAZEPINE 150 MG TAB PO SCH (11:19)
[2017-07-31] MEDS: LEVETIRACETAM 500 MG TAB PO SCH (11:19)
[2017-07-31] MEDS: TOBRAMYCIN/DEXAMETHASONE OPH SUSP 2.5 ML BTL OTR SCH ×3 (11:20→21:40)
[2017-07-31] MEDS ORDERED: TOBRAMYCIN/DEXAMETHASONE OPH SUSP 2.5 ML BTL OTR SCH (14:00)
[2017-07-31] MEDS: CeleBREX 100 MG CAP PO SCH (14:04)
[2017-07-31] MEDS: ONDANSETRON INJ 8 MG in DEXTROSE 5% 50ML 50 ML IV PRN ×2 (14:13→22:19)
[2017-07-31 15:03] VITALS: BP 120/70; PULSE 81; TEMP 36.8; O2SAT 100
--- NOTE | 2017-07-31 15:38 | Progress Note ---
Subjective Date of Service: July 31, 2017. Subjective this pt is in her usual state, she continues to ask for medications that tend to have manager grocery altering side affects, she has c/o back pain and now right wrist pain. otherwise she has mild persistent nausea but wished to advance diet Problem List Medical Problems: (1) Acute bronchitis Status: Acute (2) Acute bronchitis Status: Acute (3) Acute hepatic encephalopathy Status: Acute (4) Alkaline phosphatase elevation Status: Acute (5) Altered mental status Status: Acute (6) Anemia Status: Acute (7) Back pain Status: Acute (8) Bradycardia Status: Acute (9) Breakthrough seizure Status: Acute (10) Burn Status: Acute (11) Change in mental status Status: Acute (12) Change in mental status Status: Acute (13) Change in mental status Status: Acute (14) Change in mental status Status: Acute (15) Chronic low back pain Status: Acute (16) Closed head injury Status: Acute (17) Dehydration Status: Acute (18) Dehydration Status: Acute (19) Diarrhea Status: Acute (20) Dizziness Status: Acute (21) Facial laceration Status: Acute (22) Failure of outpatient treatment Status: Acute (23) Fall Status: Acute (24) Fall Status: Acute (25) Fall Status: Acute (26) Fatigue Status: Acute (27) Head trauma Status: Acute (28) Hemorrhoid Status: Acute (29) Hepatic encephalopathy Status: Acute (30) Hepatic encephalopathy Status: Acute (31) Hepatic encephalopathy Status: Acute (32) Hepatic encephalopathy Status: Acute (33) Hepatic encephalopathy Status: Acute (34) Hepatic encephalopathy Status: Acute (35) Hepatic encephalopathy Status: Acute (36) Hepatic encephalopathy Status: Acute (37) Hepatic encephalopathy Status: Acute (38) Hepatic encephalopathy Status: Acute (39) Hepatic encephalopathy Status: Acute (40) Hepatic encephalopathy Status: Acute (41) Hepatic encephalopathy Status: Acute (42) Hepatic encephalopathy Status: Acute (43) Hepatic encephalopathy Status: Acute (44) Hyperammonemia Status: Acute (45) Hyperammonemia Status: Acute (46) Hyperammonemia Status: Acute (47) Hyperammonemia Status: Acute (48) Hypocalcemia Status: Acute (49) Hypocalcemia Status: Acute (50) Hypocalcemia Status: Acute (51) Hypokalemia Status: Acute (52) Hypokalemia Status: Acute (53) Hypokalemia Status: Acute (54) Hypomagnesemia Status: Acute (55) Increased ammonia level Status: Acute (56) Intertrochanteric fracture of left femur Status: Acute (57) Left foot pain Status: Acute (58) Left shoulder pain Status: Acute (59) Leukopenia Status: Acute (60) Lightheaded Status: Acute (61) Low back pain Status: Acute (62) Malingering Status: Acute (63) Medical non-compliance Status: Acute (64) Migraine Status: Acute (65) Nausea Status: Acute (66) Nausea Status: Acute (67) Nausea Status: Acute (68) Nausea Status: Acute (69) Nausea & vomiting Status: Acute (70) Noncompliance Status: Acute (71) Noncompliance with medication regimen Status: Acute (72) Pain in pelvis Status: Acute (73) Pain, joint, ankle, right Status: Acute (74) Pancytopenia Status: Acute (75) Persistent vomiting Status: Acute (76) Post-operative pain Status: Acute (77) Right ear pain Status: Acute (78) Right groin pain Status: Acute (79) Right hip pain Status: Acute (80) Right upper lobe pneumonia Status: Acute (81) RUQ abdominal pain Status: Acute (82) Seizure Status: Acute (83) Sepsis Status: Acute (84) UTI (urinary tract infection) Status: Acute (85) Vomiting Status: Acute (86) Weakness Status: Acute (87) Weakness Status: Acute (88) Weakness Status: Acute (89) Weakness Status: Acute Review of Systems Constitutional: No fever, No chills, No weakness Respiratory: No cough, No shortness of breath Cardiac: No chest pain, No edema Abdomen: + nausea, No pain, No vomiting Musculoskeletal: + joint pain, No muscle pain, No swelling Female : No dysuria, No urinary frequency Objective Vital Signs Date Time Temp Pulse Resp B/P (MAP) Pulse Ox O2 Delivery O2 Flow Rate FiO2 07/31/17 15:03 36.8 81 18 120/70 (87) 100 Room Air 07/31/17 08:00 Room Air 07/31/17 07:23 36.7 76 18 106/69 (81) 99 Room Air 07/31/17 00:23 36.9 76 20 127/72 (90) 97 Room Air 07/31/17 00:01 Room Air 07/30/17 20:01 Room Air 07/30/17 16:50 36.9 83 18 121/69 (86) 93 Room Air 07/30/17 15:37 Room Air Physical Exam General Appearance: WD/WN, + mild distress Eyes: normal inspection, sclerae normal Respiratory/Chest: chest non-tender, lungs clear, normal breath sounds Cardiovascular: regular rate, rhythm, no murmur Abdomen: normal bowel sounds, soft, + tenderness Extremities: no pedal edema, no calf tenderness Neurologic/Psychiatric: alert, oriented x 3 Laboratory Results Last 24 Hours Test 07/30/17 16:29 07/30/17 20:20 07/31/17 05:32 07/31/17 07:39 Bedside Glucose 176 mg/dl 153 mg/dl 155 mg/dl Sodium Level 130 mmol/L Potassium Level 4.0 mmol/L Chloride Level 102 mmol/L Carbon Dioxide Level 25 mmol/L Anion Gap 3.0 mmol/L Blood Urea Nitrogen 3 mg/dl Creatinine 0.52 mg/dl Est Creatinine Clear Calc Drug Dose 145.1 ml/min Estimated GFR () 128.2 Estimated GFR (Non- 110.6 BUN/Creatinine Ratio 5.5 Random Glucose 164 mg/dl Calcium Level 7.0 mg/dl Test 07/31/17 11:26 Bedside Glucose 263 mg/dl Assessment and Plan 51 yo F with history of liver cirrhosis admitted on July 26, 2017 because of severe nausea with failed outpatient Compazine, Phenergan, Zofran, and she cannot take Reglan due to her seizure disorder. Also had early hepatic encephalopathy, this resolved rapidly PMHx of liver cirrhosis secondary to seizure med hepatotoxicity, DMII on insulin , hypothyroidism, seizure disorder, migraines, asthma, parkinsonism, bipolar disorder, depression, chronic pancytopenia, and GERD, traumatic R femoral fracture with intertrochanteric vijaya placed Hepatic encephalopathy secondary to inability to take lactulose,now returned to her baseline, usually do not follow ammonia levels as she is chronically elevated and we typically recheck only if mental status is altered, pt is intermittently refusing meds but is recommended to continue rifaximin, lactulose Severe nausea/dry heaves have resolved, has minor nausea and mild ileus seen on xray but is tolerating liquid intake - GI consult - EGD was normal - continue IV phenergan - patient asked for increased dose however given her history of tremor with this medication, will hold off on increase , did increase zofran - Continue Protonix IV twice daily - stool cultures negative - BC ngtd Back pain secondary to fall, xray evaluation did not show x ray evaluation - continue home dose oxycodone - patient requested IV dilaudid, once again we reinforced that we will not be using medications such as that Hypomagnesemia- 1 gm IV mag again this morning - repeat mag in am 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 type 2 on insulin- ss, bsgs ac & hs - bsgs stable Hypothyroidism Synthroid, continue 35 mg IV daily due to poor po intake Seizure disorder,staff present with her fall do not feel was SZ no post ictal issues, she is on her usual home keppra dosing Continued [facility] stay due to: multiple IV medications needed Discharge planning: home
[2017-07-31] MEDS: LEVETIRACETAM 1000 MG PO SCH (20:00)
[2017-07-31] MEDS: OXCARBAZEPINE 300 MG TAB PO SCH (21:44)
[2017-07-31] MEDS: MIRTAZAPINE TAB 15 MG TAB PO SCH (21:48)
[2017-07-31] MEDS: TOPIRAMATE 25 MG TAB PO SCH (21:51)
[2017-07-31] MEDS: ZOLPIDEM TARTRATE 5 MG TAB PO PRN (22:04)
[2017-07-31] MEDS: hydrOXYzine HCL 25 MG TAB PO SCH (22:16)
[2017-07-31 23:00] VITALS: BP 133/75; PULSE 75; TEMP 36.7; O2SAT 100
[2017-08-01] MEDS: PROMETHAZINE HCL INJ 12.5 MG in SODIUM CHLORIDE 0.9% 50ML 50 ML IV PRN ×3 (01:33→21:12)
[2017-08-01] MEDS: DICLOFENAC SOD 1% GEL 100 GM TUBE EXT PRN ×2 (02:14→08:08)
[2017-08-01] MEDS: OXYCODONE HCL IR 5 MG TAB (IMMEDIATE RELEASE) PO PRN ×3 (03:32→16:30)
[2017-08-01] MEDS: ONDANSETRON INJ 8 MG in DEXTROSE 5% 50ML 50 ML IV PRN ×2 (04:10→16:30)
[2017-08-01 05:25] LABS: HEMATOCRIT 24.9 % (37-47); HEMOGLOBIN 9.4 g/dL (12.0-16.0); MEAN CORPUSCULAR HEMOGLOBIN 35.5 pg (25-34); MEAN CORPUSCULAR HGB CONC 37.8 g/dl (32-36); RED CELL DISTRIBUTION WIDTH CV 14.7 % (11.5-14.5); RED CELL DISTRIBUTION WIDTH SD 49.8 fL (36.4-46.3); WHITE BLOOD COUNT 3.12 K/uL (4.8-10.8)
[2017-08-01 05:27] LABS: MEAN PLATELET VOLUME 10.1 fL (7.4-10.4); PLATELET COUNT 80 K/uL (130-400)
[2017-08-01 05:48] LABS: CALCIUM 7.3 mg/dl (8.5-10.1); CREATININE 0.51 mg/dl (0.60-1.20)
[2017-08-01 07:32] VITALS: BP 130/78; PULSE 80; TEMP 36.6; O2SAT 97
[2017-08-01] MEDS: CeleBREX 100 MG CAP PO SCH (08:00)
[2017-08-01] MEDS: PANTOprazole INJ 40 MG in SYRINGE 0 ML IV SCH (08:08)
[2017-08-01] MEDS: LACTULOSE SYRUP 20 GM/30 ML UDC PO SCH ×4 (08:09→20:00)
[2017-08-01] MEDS: RIFAXIMIN TAB 550 MG TAB PO SCH ×2 (08:09→20:50)
[2017-08-01] MEDS: MAGNESIUM OXIDE 400 MG TAB PO SCH ×2 (08:09→21:12)
[2017-08-01] MEDS: D5W AND 1/2NSS + 20MEQ KCL 1,000 ML IV SCH ×2 (08:10→22:31)
[2017-08-01] MEDS: SERTRALINE HCL 50 MG TAB PO SCH (08:11)
[2017-08-01] MEDS: TOBRAMYCIN/DEXAMETHASONE OPH SUSP 2.5 ML BTL OTR SCH ×3 (08:12→20:48)
[2017-08-01] MEDS: LEVETIRACETAM 1000 MG PO SCH ×2 (08:13→20:48)
[2017-08-01] MEDS: OXCARBAZEPINE 300 MG TAB PO SCH ×2 (08:14→20:49)
[2017-08-01] MEDS: SPIRONOLACTONE 25 MG TAB PO SCH (08:16)
[2017-08-01] MEDS: INSULIN HUMAN LISPRO (humaLOG) 100 UNITS/ML VIAL SC SCH ×4 (08:26→20:57)
[2017-08-01 08:30] VITALS: O2SAT 97
[2017-08-01] MEDS: TOPIRAMATE 100 MG TAB PO SCH (09:24)
[2017-08-01] MEDS: LEVOTHYROXINE SODIUM INJ 35 MCG in SYRINGE 0 ML IV SCH (09:24)
[2017-08-01 14:50] VITALS: BP 132/80; PULSE 75; TEMP 36.5; O2SAT 100
[2017-08-01 16:00] VITALS: O2SAT 100
--- NOTE | 2017-08-01 19:38 | Progress Note ---
Subjective Date of Service: August 01, 2017. Subjective this pt continues in her usual state typically trying to convince the need for more medicine or alternate tests, she now states she does not want to go to snf but is interested in staying here in hospital till next week, she remains on observation status as there are no immediate acute needs identified but pt is not wanting to go home Problem List Medical Problems: (1) Acute bronchitis Status: Acute (2) Acute bronchitis Status: Acute (3) Acute hepatic encephalopathy Status: Acute (4) Alkaline phosphatase elevation Status: Acute (5) Altered mental status Status: Acute (6) Anemia Status: Acute (7) Back pain Status: Acute (8) Bradycardia Status: Acute (9) Breakthrough seizure Status: Acute (10) Burn Status: Acute (11) Change in mental status Status: Acute (12) Change in mental status Status: Acute (13) Change in mental status Status: Acute (14) Change in mental status Status: Acute (15) Chronic low back pain Status: Acute (16) Closed head injury Status: Acute (17) Dehydration Status: Acute (18) Dehydration Status: Acute (19) Diarrhea Status: Acute (20) Dizziness Status: Acute (21) Facial laceration Status: Acute (22) Failure of outpatient treatment Status: Acute (23) Fall Status: Acute (24) Fall Status: Acute (25) Fall Status: Acute (26) Fatigue Status: Acute (27) Head trauma Status: Acute (28) Hemorrhoid Status: Acute (29) Hepatic encephalopathy Status: Acute (30) Hepatic encephalopathy Status: Acute (31) Hepatic encephalopathy Status: Acute (32) Hepatic encephalopathy Status: Acute (33) Hepatic encephalopathy Status: Acute (34) Hepatic encephalopathy Status: Acute (35) Hepatic encephalopathy Status: Acute (36) Hepatic encephalopathy Status: Acute (37) Hepatic encephalopathy Status: Acute (38) Hepatic encephalopathy Status: Acute (39) Hepatic encephalopathy Status: Acute (40) Hepatic encephalopathy Status: Acute (41) Hepatic encephalopathy Status: Acute (42) Hepatic encephalopathy Status: Acute (43) Hepatic encephalopathy Status: Acute (44) Hyperammonemia Status: Acute (45) Hyperammonemia Status: Acute (46) Hyperammonemia Status: Acute (47) Hyperammonemia Status: Acute (48) Hypocalcemia Status: Acute (49) Hypocalcemia Status: Acute (50) Hypocalcemia Status: Acute (51) Hypokalemia Status: Acute (52) Hypokalemia Status: Acute (53) Hypokalemia Status: Acute (54) Hypomagnesemia Status: Acute (55) Increased ammonia level Status: Acute (56) Intertrochanteric fracture of left femur Status: Acute (57) Left foot pain Status: Acute (58) Left shoulder pain Status: Acute (59) Leukopenia Status: Acute (60) Lightheaded Status: Acute (61) Low back pain Status: Acute (62) Malingering Status: Acute (63) Medical non-compliance Status: Acute (64) Migraine Status: Acute (65) Nausea Status: Acute (66) Nausea Status: Acute (67) Nausea Status: Acute (68) Nausea Status: Acute (69) Nausea & vomiting Status: Acute (70) Noncompliance Status: Acute (71) Noncompliance with medication regimen Status: Acute (72) Pain in pelvis Status: Acute (73) Pain, joint, ankle, right Status: Acute (74) Pancytopenia Status: Acute (75) Persistent vomiting Status: Acute (76) Post-operative pain Status: Acute (77) Right ear pain Status: Acute (78) Right groin pain Status: Acute (79) Right hip pain Status: Acute (80) Right upper lobe pneumonia Status: Acute (81) RUQ abdominal pain Status: Acute (82) Seizure Status: Acute (83) Sepsis Status: Acute (84) UTI (urinary tract infection) Status: Acute (85) Vomiting Status: Acute (86) Weakness Status: Acute (87) Weakness Status: Acute (88) Weakness Status: Acute (89) Weakness Status: Acute Review of Systems Constitutional: No fever, No chills, No weakness Respiratory: No cough, No wheezing, No shortness of breath Cardiac: No chest pain, No edema Abdomen: + nausea, No pain, No vomiting Musculoskeletal: No joint pain, No muscle pain Female : No dysuria, No urinary frequency, No hematuria Psychiatric: + depression symptoms, + anxiety, No anhedonism Objective Vital Signs Date Time Temp Pulse Resp B/P (MAP) Pulse Ox O2 Delivery O2 Flow Rate FiO2 08/01/17 16:00 100 Room Air 08/01/17 14:50 36.5 75 20 132/80 (97) 100 Room Air 08/01/17 08:30 97 Room Air 08/01/17 07:32 36.6 80 18 130/78 (95) 97 Room Air 08/01/17 00:30 Room Air 07/31/17 23:00 36.7 75 20 133/75 (94) 100 Room Air Physical Exam General Appearance: WD/WN, + mild distress Eyes: normal inspection, sclerae normal Respiratory/Chest: chest non-tender, lungs clear, normal breath sounds Cardiovascular: regular rate, rhythm, no murmur Abdomen: normal bowel sounds, non tender, soft Neurologic/Psychiatric: alert, oriented x 3 Laboratory Results Last 24 Hours Test 07/31/17 21:02 08/01/17 04:58 08/01/17 07:37 08/01/17 11:19 Bedside Glucose 219 mg/dl 194 mg/dl 205 mg/dl White Blood Count 3.12 K/uL Red Blood Count 2.65 M/uL Hemoglobin 9.4 g/dL Hematocrit 24.9 % Mean Corpuscular Volume 94.0 fL Mean Corpuscular Hemoglobin 35.5 pg Mean Corpuscular Hemoglobin Concent 37.8 g/dl RDW Standard Deviation 49.8 fL RDW Coefficient of Variation 14.7 % Platelet Count 80 K/uL Mean Platelet Volume 10.1 fL Sodium Level 127 mmol/L Potassium Level 4.0 mmol/L Chloride Level 98 mmol/L Carbon Dioxide Level 26 mmol/L Anion Gap 3.0 mmol/L Blood Urea Nitrogen 2 mg/dl Creatinine 0.51 mg/dl Est Creatinine Clear Calc Drug Dose 147.9 ml/min Estimated GFR () 129.0 Estimated GFR (Non- 111.3 BUN/Creatinine Ratio 3.9 Random Glucose 192 mg/dl Calcium Level 7.3 mg/dl Test 08/01/17 16:23 Bedside Glucose 197 mg/dl Assessment and Plan 51 yo F with history of liver cirrhosis admitted on July 26, 2017 because of severe nausea with failed outpatient Compazine, Phenergan, Zofran, and she cannot take Reglan due to her seizure disorder. Also had early hepatic encephalopathy, this resolved rapidly PMHx of liver cirrhosis secondary to seizure med hepatotoxicity, DMII on insulin , hypothyroidism, seizure disorder, migraines, asthma, parkinsonism, bipolar disorder, depression, chronic pancytopenia, and GERD, traumatic R femoral fracture with intertrochanteric vijaya placed Hepatic encephalopathy secondary to inability to take lactulose,now returned to her baseline, we usually do not follow ammonia levels as she is chronically elevated and we typically recheck only if mental status is altered, pt is intermittently refusing meds but is recommended to continue rifaximin, lactulose Severe nausea/dry heaves have resolved, has minor nausea and mild ileus seen on xray but is tolerating regular diet intake - GI consult - EGD was normal - Continue Protonix transition to po - stool cultures negative - BC ngtd Back pain secondary to fall, xray evaluation did not show x ray evaluation - continue home dose oxycodone - patient requested IV dilaudid, once again we reinforced that we will not be using medications such as that did complain of right wrist pain which was x rayed and negative for fx Hypomagnesemia-replete 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 type 2 on insulin- ss, bsgs ac & hs, did increase toward typical dosing Hypothyroidism Synthroid, continue but change to po Seizure disorder,staff present with her fall do not feel was SZ no post ictal issues, she is on her usual home keppra dosing Continued [facility] stay due to: multiple IV medications needed Discharge planning: home
[2017-08-01] MEDS ORDERED: NURSING DECISION MEDICATION ORDER SCH (19:45)
[2017-08-01] MEDS ORDERED: MICONAZOLE NITRATE POWDER 43 GM EXT PRN (20:30)
[2017-08-01] MEDS: ZOLPIDEM TARTRATE 5 MG TAB PO PRN (20:46)
[2017-08-01] MEDS: hydrOXYzine HCL 25 MG TAB PO SCH (20:50)
[2017-08-01] MEDS: MIRTAZAPINE TAB 15 MG TAB PO SCH (20:51)
[2017-08-01] MEDS: TOPIRAMATE 25 MG TAB PO SCH (20:51)
[2017-08-01] MEDS: INSULIN GLARGINE SOLOSTAR 100 UNITS/ML 3 ML PEN SC SCH (20:57)
--- NOTE | 2017-08-01 21:04 | Hospitalist Progress Note ---
Hospitalist Progress Note Date of Service August 01, 2017. Subjective Pt evaluation today including: conversation w/ patient, physical exam, chart review, lab review, review of inpatient medication list Voiding: no voiding problems Ms. Munson continues to have some nausea and dry heaves but no emesis. She requests to be put on a lactose free diet, which I think is reasonable to try. ROS Constitutional: no chills, aches, sweats or fever Respiratory: no sob,cough, sputum, or wheezing Cardiac: no chest pain, palpitations, edema, orthopnea or lightheadedness GI: see HPI : no dysuria or hesitancy Extremities: left hip pain Skin: no rash All other systems reviewed and negative Medications Medications Administered Medications (Trade) Dose Ordered Sig/Danita Route Start Time Stop Time Status Last Admin Dose Admin Sodium Chloride 500 ml @ 999 mls/hr Q31M STAT IV 07/26/17 14:42 07/26/17 15:12 DC 07/26/17 15:38 999 MLS/HR Ondansetron HCl (Zofran Inj) 4 mg NOW STAT IV 07/26/17 15:54 07/26/17 15:55 DC 07/26/17 16:00 4 MG Lactulose (Chronulac Syrup) 30 gm NOW STAT PO 07/26/17 16:27 07/26/17 16:29 DC 07/26/17 17:09 30 GM Ondansetron HCl (Zofran Inj) 4 mg NOW STAT IV 07/26/17 17:06 07/26/17 17:07 DC 07/26/17 17:09 4 MG Insulin Glargine (Lantus Solostar Pen) 20 units BID SC 07/26/17 21:00 08/25/17 20:59 Future hold 07/28/17 20:27 20 UNITS Insulin Aspart (novoLOG ASPART) SLIDING SCALE ACHS SC 07/27/17 07:00 08/01/17 04:17 DC 07/31/17 22:15 4 UNITS Lactulose (Chronulac Syrup) 10 gm QID PO 07/26/17 21:00 08/25/17 20:59 08/01/17 08:09 10 GM Mirtazapine (Remeron Tab) 45 mg HS PO 07/26/17 21:00 08/25/17 20:59 07/31/17 21:48 45 MG Oxcarbazepine (Trileptal Tab) 300 mg BID PO 07/26/17 21:00 07/31/17 11:47 DC 07/31/17 11:19 300 MG Oxycodone HCl (Roxicodone Immediate Rel Tab) 5 mg Q6H PRN PO 07/26/17 18:30 08/09/17 18:29 08/01/17 16:30 5 MG Rifaximin (Xifaxan Tab) 550 mg BID PO 07/26/17 21:00 08/25/17 20:59 08/01/17 08:09 550 MG Sertraline HCl (Zoloft Tab) 100 mg QAM PO 07/27/17 09:00 08/26/17 08:59 08/01/17 08:11 100 MG Spironolactone (Aldactone Tab) 12.5 mg QAM PO 07/27/17 09:00 08/01/17 11:47 DC 08/01/17 08:16 12.5 MG Topiramate (Topamax Tab) 75 mg QPM PO 07/26/17 21:00 08/25/17 20:59 07/31/17 21:51 75 MG Topiramate (Topamax Tab) 100 mg QAM PO 07/27/17 09:00 08/26/17 08:59 08/01/17 09:24 100 MG Hydroxyzine HCl (Vistaril Tab) 50 mg HS PO 07/26/17 21:00 08/25/17 20:59 07/31/17 22:16 50 MG Magnesium Oxide (Mag-Ox Tab) 800 mg BID PO 07/26/17 22:00 08/25/17 21:59 08/01/17 08:09 800 MG Pantoprazole Sodium 40 mg/ Syringe 10 ml @ 5 mls/min DAILY@09,21 IV 07/26/17 21:00 08/01/17 20:18 DC 08/01/17 08:08 5 MLS/MIN Promethazine HCl 12.5 mg/Sodium Chloride 50.5 ml @ 204 mls/hr Q6H PRN IV 07/26/17 18:30 08/25/17 18:29 08/01/17 10:21 204 MLS/HR Sodium Chloride 1,000 ml @ 75 mls/hr [id number] IV 07/26/17 18:20 07/27/17 08:05 DC 07/26/17 22:48 75 MLS/HR Zolpidem Tartrate (Ambien Tab) 5 mg HSZ PRN PO 07/26/17 18:30 08/25/17 18:29 07/31/17 22:04 5 MG Ondansetron HCl (Zofran Inj) 4 mg Q6H PRN IV 07/26/17 18:30 07/31/17 09:43 DC 07/31/17 03:57 4 MG Levetiracetam 1000 mg/Dextrose 110 ml @ 440 mls/hr Q12H IV 07/26/17 21:00 07/30/17 11:15 DC 07/30/17 09:14 440 MLS/HR Levothyroxine Sodium 35 mcg/ Syringe 1.75 ml @ 2 mls/min DAILY@09 IV 07/27/17 09:00 08/01/17 20:18 DC 08/01/17 09:24 2 MLS/MIN Potassium Chloride/Dextrose/ Sod Cl 1,000 ml @ 75 mls/hr [id number] IV 07/27/17 09:00 08/26/17 08:59 08/01/17 08:10 75 MLS/HR Tobramycin/ Dexamethasone (Tobradex Oph Susp) 5 drops TID OTR 07/27/17 14:00 08/26/17 13:59 08/01/17 13:48 5 DROPS Magnesium Sulfate 100 ml @ 100 mls/hr NOW STAT IV 07/28/17 08:36 07/28/17 09:35 DC 07/28/17 09:13 100 MLS/HR Diphenhydramine HCl (Benadryl Cap) 25 mg Q8 PRN PO 07/28/17 23:15 08/27/17 23:14 08/01/17 10:31 25 MG Heparin Sodium (Porcine) (Heparin 100 Unit/ml 5ml Flush) 5 ml PRN PRN IV 07/28/17 23:30 08/27/17 23:29 07/30/17 02:12 5 ML Magnesium Sulfate 100 ml @ 100 mls/hr Q1H IV 07/29/17 08:20 07/29/17 10:19 DC 07/29/17 13:25 100 MLS/HR Insulin Glargine (Lantus Solostar Pen) 10 units ONE ONCE SC 07/29/17 08:45 07/29/17 08:51 DC 07/29/17 09:06 10 UNITS Oxycodone HCl (Roxicodone Immediate Rel Tab) 5 mg NOW STAT PO 07/30/17 02:09 07/30/17 02:18 DC 07/30/17 02:27 5 MG Levetiracetam (Keppra Tab) 2,000 mg BID PO 07/30/17 20:00 07/31/17 11:47 DC 07/31/17 11:19 2,000 MG Celecoxib (CeleBREX CAP) 100 mg DAILY PO 07/31/17 14:00 08/30/17 13:59 07/31/17 14:04 100 MG Ondansetron HCl 8 mg/Dextrose 54 ml @ 216 mls/hr Q6H PRN IV 07/31/17 11:15 08/30/17 11:14 08/01/17 16:30 216 MLS/HR Levetiracetam (Keppra Tab) 2,000 mg BID PO 07/31/17 20:00 08/30/17 19:59 08/01/17 08:13 2,000 MG Oxcarbazepine (Trileptal) 300 mg BID PO 07/31/17 20:00 08/30/17 19:59 08/01/17 08:14 300 MG Diclofenac Sodium (Voltaren 1% Top Gel) 1 appln BID PRN EXT 08/01/17 02:00 08/31/17 01:59 08/01/17 08:08 1 APPLN Insulin Human Lispro (humaLOG) SLIDING SCALE ACHS SC 08/01/17 06:30 08/31/17 06:29 08/01/17 17:46 8 UNITS Objective Vital Signs Date Time Temp Pulse Resp B/P (MAP) Pulse Ox O2 Delivery O2 Flow Rate FiO2 08/01/17 16:00 100 Room Air 08/01/17 14:50 36.5 75 20 132/80 (97) 100 Room Air 08/01/17 08:30 97 Room Air 08/01/17 07:32 36.6 80 18 130/78 (95) 97 Room Air 08/01/17 00:30 Room Air 07/31/17 23:00 36.7 75 20 133/75 (94) 100 Room Air Physical Exam Notes: General: no distress Eyes: normal inspection, PERLL Respiratory: chest non tender, clear to auscultation, normal breath sounds, no respiratory distress, no accessory muscle use Cardiac: regular rate and rhythm, no rub or gallop, systolic murmur, no edema, no jvd GI/: active bowel sounds, no abd pain or tenderness, soft, non distended Extremities: normal range of motion, normal strength, non tender Neuro/Psych: alert and oriented x 3, normal mood and affect Skin: normal color, dry Laboratory Results Last 24 Hours Test 07/31/17 21:02 08/01/17 04:58 08/01/17 07:37 08/01/17 11:19 Bedside Glucose 219 mg/dl 194 mg/dl 205 mg/dl White Blood Count 3.12 K/uL Red Blood Count 2.65 M/uL Hemoglobin 9.4 g/dL Hematocrit 24.9 % Mean Corpuscular Volume 94.0 fL Mean Corpuscular Hemoglobin 35.5 pg Mean Corpuscular Hemoglobin Concent 37.8 g/dl RDW Standard Deviation 49.8 fL RDW Coefficient of Variation 14.7 % Platelet Count 80 K/uL Mean Platelet Volume 10.1 fL Sodium Level 127 mmol/L Potassium Level 4.0 mmol/L Chloride Level 98 mmol/L Carbon Dioxide Level 26 mmol/L Anion Gap 3.0 mmol/L Blood Urea Nitrogen 2 mg/dl Creatinine 0.51 mg/dl Est Creatinine Clear Calc Drug Dose 147.9 ml/min Estimated GFR () 129.0 Estimated GFR (Non- 111.3 BUN/Creatinine Ratio 3.9 Random Glucose 192 mg/dl Calcium Level 7.3 mg/dl Test 08/01/17 16:23 08/01/17 20:01 Bedside Glucose 197 mg/dl 183 mg/dl Assessment and Plan 51 yo F with history of liver cirrhosis admitted on July 26, 2017 because of severe nausea with failed outpatient Compazine, Phenergan, Zofran, and she cannot take Reglan due to her seizure disorder. Also had early hepatic encephalopathy PMHx of liver cirrhosis secondary to seizure med hepatotoxicity, DMII on insulin , hypothyroidism, seizure disorder, migraines, asthma, parkinsonism, bipolar disorder, depression, chronic pancytopenia, and GERD, traumatic R femoral fracture with intertrochanteric vijaya placed Hepatic encephalopathy secondary to inability to take lactulose, cirrhosis - resolved - ammonia level decreased from 140 to 75 - Continue rifaximin, lactulose - increased spironolactone to 25 mg daily from 12.5 mg, patient takes 50 mg at home Severe nausea/dry heaves - GI consult - EGD was normal - continue IV phenergan - patient asked for increased dose however given her history of tremor with this medication, will hold off on increase - Continue Protonix IV twice daily - stool cultures negative - BC ngtd - nausea somewhat improved - Xray 07/30 did show a mild non obstructing ileus Back pain secondary to fall - continue home dose oxycodone, lidocaine patches - patient did not tolerate celebrex, reinforced need to avoid escalating opioids despite patient requests for dilaudid Hypomagnesemia - resolved 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 type 2 on insulin - ss, bsgs ac & hs - bsgs somewhat elevated today around 200, restarted lantus dosing at half of home dosing - 20 units bid Hypothyroidism restarted home Synthroid dosing 75 mcg Seizure disorder, - continue home keppra dosing DVT prophylaxis - no heparin because of low platelets
[2017-08-01] MEDS: PANTOprazole SOD 40 MG TAB PO SCH (21:12)
[2017-08-02] VITALS: O2SAT 100
[2017-08-02] MEDS: OXYCODONE HCL IR 5 MG TAB (IMMEDIATE RELEASE) PO PRN ×4 (02:03→21:32)
[2017-08-02] MEDS: ONDANSETRON INJ 8 MG in DEXTROSE 5% 50ML 50 ML IV PRN ×3 (04:42→18:55)
[2017-08-02] MEDS: LEVOTHYROXINE 75 MCG TAB PO SCH (06:11)
[2017-08-02 07:07] LABS: CREATININE 0.61 mg/dl (0.60-1.20)
[2017-08-02 07:08] LABS: CALCIUM 7.4 mg/dl (8.5-10.1); POTASSIUM 4.3 mmol/L (3.5-5.1)
[2017-08-02 07:32] VITALS: BP 149/71; PULSE 86; TEMP 36.7; O2SAT 98
[2017-08-02 08:45] VITALS: O2SAT 98
[2017-08-02] MEDS: TOPIRAMATE 100 MG TAB PO SCH (08:56)
[2017-08-02] MEDS: SERTRALINE HCL 50 MG TAB PO SCH (08:56)
[2017-08-02] MEDS: TOBRAMYCIN/DEXAMETHASONE OPH SUSP 2.5 ML BTL OTR SCH ×3 (08:57→21:33)
[2017-08-02] MEDS: MAGNESIUM OXIDE 400 MG TAB PO SCH ×2 (08:57→21:39)
[2017-08-02] MEDS: PANTOprazole SOD 40 MG TAB PO SCH ×2 (08:57→21:39)
[2017-08-02] MEDS: RIFAXIMIN TAB 550 MG TAB PO SCH ×2 (08:58→21:38)
[2017-08-02] MEDS: CeleBREX 100 MG CAP PO SCH (08:58)
[2017-08-02] MEDS: SPIRONOLACTONE 25 MG TAB PO SCH (08:58)
[2017-08-02] MEDS: LACTULOSE SYRUP 20 GM/30 ML UDC PO SCH ×3 (08:59→17:00)
[2017-08-02] MEDS: OXCARBAZEPINE 300 MG TAB PO SCH ×2 (08:59→21:37)
[2017-08-02] MEDS: LEVETIRACETAM 1000 MG PO SCH ×2 (09:01→21:37)
[2017-08-02] MEDS: INSULIN HUMAN LISPRO (humaLOG) 100 UNITS/ML VIAL SC SCH ×4 (09:07→21:47)
[2017-08-02] MEDS: INSULIN GLARGINE SOLOSTAR 100 UNITS/ML 3 ML PEN SC SCH ×2 (09:08→21:47)
[2017-08-02] MEDS: PROMETHAZINE HCL INJ 12.5 MG in SODIUM CHLORIDE 0.9% 50ML 50 ML IV PRN ×2 (09:10→17:46)
[2017-08-02] MEDS: D5W AND 1/2NSS + 20MEQ KCL 1,000 ML IV SCH (12:57)
[2017-08-02] MEDS ORDERED: DiphenhydrAMINE INJ 25 MG in SYRINGE 0 ML IV PRN (15:15)
[2017-08-02] MEDS: SODIUM CHLORIDE 0.9% 1000ML 1,000 ML IV SCH (15:57)
[2017-08-02 16:00] VITALS: O2SAT 98
[2017-08-02 16:08] VITALS: BP 163/84; PULSE 88; TEMP 36.8; O2SAT 100
--- NOTE | 2017-08-02 16:14 | Progress Note ---
Subjective Date of Service: August 02, 2017. Subjective this pt is saying she is concerned with persistent nausea, she is concerned about her issues with portal vein thrombosis. she continues to bargain for nausea medicines such as more Phenergan or compazine Problem List Medical Problems: (1) Acute bronchitis Status: Acute (2) Acute bronchitis Status: Acute (3) Acute hepatic encephalopathy Status: Acute (4) Alkaline phosphatase elevation Status: Acute (5) Altered mental status Status: Acute (6) Anemia Status: Acute (7) Back pain Status: Acute (8) Bradycardia Status: Acute (9) Breakthrough seizure Status: Acute (10) Burn Status: Acute (11) Change in mental status Status: Acute (12) Change in mental status Status: Acute (13) Change in mental status Status: Acute (14) Change in mental status Status: Acute (15) Chronic low back pain Status: Acute (16) Closed head injury Status: Acute (17) Dehydration Status: Acute (18) Dehydration Status: Acute (19) Diarrhea Status: Acute (20) Dizziness Status: Acute (21) Facial laceration Status: Acute (22) Failure of outpatient treatment Status: Acute (23) Fall Status: Acute (24) Fall Status: Acute (25) Fall Status: Acute (26) Fatigue Status: Acute (27) Head trauma Status: Acute (28) Hemorrhoid Status: Acute (29) Hepatic encephalopathy Status: Acute (30) Hepatic encephalopathy Status: Acute (31) Hepatic encephalopathy Status: Acute (32) Hepatic encephalopathy Status: Acute (33) Hepatic encephalopathy Status: Acute (34) Hepatic encephalopathy Status: Acute (35) Hepatic encephalopathy Status: Acute (36) Hepatic encephalopathy Status: Acute (37) Hepatic encephalopathy Status: Acute (38) Hepatic encephalopathy Status: Acute (39) Hepatic encephalopathy Status: Acute (40) Hepatic encephalopathy Status: Acute (41) Hepatic encephalopathy Status: Acute (42) Hepatic encephalopathy Status: Acute (43) Hepatic encephalopathy Status: Acute (44) Hyperammonemia Status: Acute (45) Hyperammonemia Status: Acute (46) Hyperammonemia Status: Acute (47) Hyperammonemia Status: Acute (48) Hypocalcemia Status: Acute (49) Hypocalcemia Status: Acute (50) Hypocalcemia Status: Acute (51) Hypokalemia Status: Acute (52) Hypokalemia Status: Acute (53) Hypokalemia Status: Acute (54) Hypomagnesemia Status: Acute (55) Increased ammonia level Status: Acute (56) Intertrochanteric fracture of left femur Status: Acute (57) Left foot pain Status: Acute (58) Left shoulder pain Status: Acute (59) Leukopenia Status: Acute (60) Lightheaded Status: Acute (61) Low back pain Status: Acute (62) Malingering Status: Acute (63) Medical non-compliance Status: Acute (64) Migraine Status: Acute (65) Nausea Status: Acute (66) Nausea Status: Acute (67) Nausea Status: Acute (68) Nausea Status: Acute (69) Nausea & vomiting Status: Acute (70) Noncompliance Status: Acute (71) Noncompliance with medication regimen Status: Acute (72) Pain in pelvis Status: Acute (73) Pain, joint, ankle, right Status: Acute (74) Pancytopenia Status: Acute (75) Persistent vomiting Status: Acute (76) Post-operative pain Status: Acute (77) Right ear pain Status: Acute (78) Right groin pain Status: Acute (79) Right hip pain Status: Acute (80) Right upper lobe pneumonia Status: Acute (81) RUQ abdominal pain Status: Acute (82) Seizure Status: Acute (83) Sepsis Status: Acute (84) UTI (urinary tract infection) Status: Acute (85) Vomiting Status: Acute (86) Weakness Status: Acute (87) Weakness Status: Acute (88) Weakness Status: Acute (89) Weakness Status: Acute Review of Systems Constitutional: + weakness, No fever, No chills Cardiac: No chest pain, No edema Abdomen: + nausea, + diarrhea, No vomiting, No constipation Musculoskeletal: No joint pain, No muscle pain Female : No dysuria, No urinary frequency Neurologic: No memory loss, No paralysis Objective Vital Signs Date Time Temp Pulse Resp B/P (MAP) Pulse Ox O2 Delivery O2 Flow Rate FiO2 08/02/17 08:45 98 Room Air 08/02/17 07:32 36.7 86 16 149/71 (97) 98 08/02/17 00:00 100 Room Air Physical Exam General Appearance: WD/WN, + mild distress Eyes: normal inspection, PERRL, EOMI, sclerae normal Neck: supple, no JVD Respiratory/Chest: chest non-tender, lungs clear, normal breath sounds Cardiovascular: regular rate, rhythm, no murmur Abdomen: normal bowel sounds, soft, + guarding, + tenderness Extremities: no pedal edema, no calf tenderness Neurologic/Psychiatric: alert, oriented x 3 Laboratory Results Last 24 Hours Test 08/01/17 16:23 08/01/17 20:01 08/02/17 06:15 08/02/17 07:41 Bedside Glucose 197 mg/dl 183 mg/dl 223 mg/dl Sodium Level 127 mmol/L Potassium Level 4.3 mmol/L Chloride Level 98 mmol/L Carbon Dioxide Level 25 mmol/L Anion Gap 4.0 mmol/L Blood Urea Nitrogen 4 mg/dl Creatinine 0.61 mg/dl Est Creatinine Clear Calc Drug Dose 123.7 ml/min Estimated GFR () 121.7 Estimated GFR (Non- 105.0 BUN/Creatinine Ratio 6.1 Random Glucose 209 mg/dl Calcium Level 7.4 mg/dl Test 08/02/17 16:02 Assessment and Plan 51 yo F with history of liver cirrhosis admitted on July 26, 2017 because of severe nausea with failed outpatient Compazine, Phenergan, Zofran, and she cannot take Reglan due to her seizure disorder. Also had early hepatic encephalopathy, this resolved rapidly PMHx of liver cirrhosis secondary to seizure med hepatotoxicity, DMII on insulin , hypothyroidism, seizure disorder, migraines, asthma, parkinsonism, bipolar disorder, depression, chronic pancytopenia, and GERD, traumatic R femoral fracture with intertrochanteric vijaya placed Hepatic encephalopathy secondary to inability to take lactulose,now returned to her baseline, we usually do not follow ammonia levels as she is chronically elevated and we typically recheck only if mental status is altered, pt is intermittently refusing meds but is recommended to continue rifaximin, lactulose. 08/02 pt states she feels more nausea and a feeling of dread, will recheck ammonia and LFT's also check a portal vein ultrasound Severe nausea/dry heaves have resolved,continues with minor nausea did advance to regular diet and worsened will downgrade to liquids, will stop d5 liquids and tighten ssi - GI consult - EGD was normal, pt is now desiring colonoscopy - Continue Protonix transition to po - stool cultures negative - BC ngtd Back pain secondary to fall, xray evaluation did not show x ray evaluation - continue home dose oxycodone - patient continues to request IV dilaudid, once again we reinforced that we will not be using medications such as that did complain of right wrist pain which was x rayed and negative for fx Hypomagnesemia-replete 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 type 2 on insulin- ss, bsgs ac & hs, did increase toward typical dosing Hypothyroidism Synthroid, continue but change to po Seizure disorder,staff present with her fall do not feel was SZ no post ictal issues, she is on her usual home keppra dosing Continued [facility] stay due to: multiple IV medications needed Discharge planning: home
[2017-08-02] MEDS: DiphenhydrAMINE HCL 50 MG/ML VIAL IV PRN ×2 (16:21→21:42)
[2017-08-02 16:30] LABS: ALBUMIN 2.6 gm/dl (3.4-5.0); TOTAL PROTEIN 5.5 gm/dl (6.4-8.2)
[2017-08-02] MEDS ORDERED: LACTULOSE SYRUP 10 GM/15 ML BTL 473 ML PO ONE (19:00)
[2017-08-02] MEDS: LACTULOSE SYRUP 10 GM/15 ML BTL 473 ML PO SCH (20:00)
[2017-08-02] MEDS: MIRTAZAPINE TAB 15 MG TAB PO SCH (21:38)
[2017-08-02] MEDS: hydrOXYzine HCL 25 MG TAB PO SCH (21:38)
[2017-08-02] MEDS: TOPIRAMATE 25 MG TAB PO SCH (21:38)
[2017-08-02] MEDS: ZOLPIDEM TARTRATE 5 MG TAB PO PRN (21:42)
[2017-08-02 23:07] VITALS: BP 125/68; PULSE 76; TEMP 36.4; O2SAT 97
[2017-08-03] VITALS (10 sets, daily range): BP systolic 95–147; BP diastolic 60–94; PULSE 75–85; TEMP 36.5–36.7; O2SAT 95–100
[2017-08-03] MEDS: PROMETHAZINE HCL INJ 12.5 MG in SODIUM CHLORIDE 0.9% 50ML 50 ML IV PRN (05:05)
[2017-08-03] MEDS: OXYCODONE HCL IR 5 MG TAB (IMMEDIATE RELEASE) PO PRN ×3 (05:12→17:48)
[2017-08-03] MEDS: DiphenhydrAMINE HCL 50 MG/ML VIAL IV PRN (05:13)
[2017-08-03] MEDS: SODIUM CHLORIDE 0.9% 1000ML 1,000 ML IV SCH ×2 (07:40→17:48)
[2017-08-03] MEDS: SERTRALINE HCL 50 MG TAB PO SCH (07:41)
[2017-08-03] MEDS: LEVOTHYROXINE 75 MCG TAB PO SCH (07:41)
[2017-08-03] MEDS: PANTOprazole SOD 40 MG TAB PO SCH ×2 (07:41→21:58)
[2017-08-03] MEDS: TOPIRAMATE 100 MG TAB PO SCH (07:41)
[2017-08-03] MEDS: TOBRAMYCIN/DEXAMETHASONE OPH SUSP 2.5 ML BTL OTR SCH ×3 (07:42→21:54)
[2017-08-03] MEDS: RIFAXIMIN TAB 550 MG TAB PO SCH ×2 (07:42→21:56)
[2017-08-03] MEDS: CeleBREX 100 MG CAP PO SCH (07:42)
[2017-08-03] MEDS: SPIRONOLACTONE 25 MG TAB PO SCH (07:42)
[2017-08-03] MEDS: MAGNESIUM OXIDE 400 MG TAB PO SCH ×2 (07:43→21:57)
[2017-08-03] MEDS: LACTULOSE SYRUP 10 GM/15 ML BTL 473 ML PO SCH ×4 (07:43→21:53)
[2017-08-03] MEDS: OXCARBAZEPINE 300 MG TAB PO SCH ×2 (07:44→21:54)
[2017-08-03] MEDS: LEVETIRACETAM 1000 MG PO SCH ×2 (07:44→21:54)
[2017-08-03] MEDS ORDERED: DRONABINOL 2.5 MG CAP PO SCH ×2 (08:45→20:00)
[2017-08-03] MEDS: ONDANSETRON INJ 8 MG in DEXTROSE 5% 50ML 50 ML IV PRN ×2 (09:04→18:03)
[2017-08-03] MEDS: INSULIN HUMAN LISPRO (humaLOG) 100 UNITS/ML VIAL SC SCH ×4 (09:11→22:04)
[2017-08-03] MEDS: INSULIN GLARGINE SOLOSTAR 100 UNITS/ML 3 ML PEN SC SCH ×2 (09:12→22:05)
--- NOTE | 2017-08-03 11:08 | DIAGNOSTIC IMAGING REPORT ---
ABDOMEN 2VIEW W/PA CHEST RTN HISTORY: 51 years-old Female eval ileus acute ileus COMPARISON: Chest radiograph 07/26/2017 TECHNIQUE: PA view of the chest with left lateral decubitus and supine views of the abdomen FINDINGS: Cardiac silhouette is mildly enlarged. Lungs are hypoinflated with bronchovascular crowding. Hazy perihilar and left basilar opacities suggest atelectasis. Right internal jugular Ekmbiz-x-Vonr catheter is noted. Battery pack device projects of the left chest with tingling lead within the distribution of the left neck. There is no pneumothorax or pleural effusion. No overt pulmonary edema or lobar airspace consolidation. Orthopedic hardware about the left humerus. Degenerative changes of the shoulders and spine. Gas-filled nondilated stomach with loops of small large bowel are seen with small bowel loops measuring up to 2.7 cm. No pneumatosis or pneumoperitoneum. Prior cholecystectomy. Intratrochanteric nail with intramedullary vijaya of the right femur. Heterotopic ossifications of the right femur are noted. IMPRESSION: 1. Hypoinflated lungs with bronchovascular crowding and hazy perihilar and left basilar opacities suggesting atelectasis. 2. Gas-filled nondilated stomach, small and large bowel suggests ileus without evidence of small bowel obstruction or pneumoperitoneum. The above report was generated using voice recognition software. It may contain grammatical, syntax or spelling errors. Electronically signed by: Deion Segura M.D. 08/03/2017 11:07 AM Dictated Date/Time: 08/03/2017 11:03 AM
--- NOTE | 2017-08-03 16:14 | Progress Note ---
Subjective Date of Service: August 03, 2017. Subjective This pt has had complaints of persistent nausea and has been asking for higher doses of antiemetics, she has also requested additional testing by name, including CT scans and Colonoscopy. She has discussed issues regarding concern for hepatin vein thrombosis but then has refused US. Today we had tried marinol for nausea and the pt did become somewhat more confused, she had been given additional doses of lactulose 5/5 due to increased ammonia, Problem List Medical Problems: (1) Acute bronchitis Status: Acute (2) Acute bronchitis Status: Acute (3) Acute hepatic encephalopathy Status: Acute (4) Alkaline phosphatase elevation Status: Acute (5) Altered mental status Status: Acute (6) Anemia Status: Acute (7) Back pain Status: Acute (8) Bradycardia Status: Acute (9) Breakthrough seizure Status: Acute (10) Burn Status: Acute (11) Change in mental status Status: Acute (12) Change in mental status Status: Acute (13) Change in mental status Status: Acute (14) Change in mental status Status: Acute (15) Chronic low back pain Status: Acute (16) Closed head injury Status: Acute (17) Dehydration Status: Acute (18) Dehydration Status: Acute (19) Diarrhea Status: Acute (20) Dizziness Status: Acute (21) Facial laceration Status: Acute (22) Failure of outpatient treatment Status: Acute (23) Fall Status: Acute (24) Fall Status: Acute (25) Fall Status: Acute (26) Fatigue Status: Acute (27) Head trauma Status: Acute (28) Hemorrhoid Status: Acute (29) Hepatic encephalopathy Status: Acute (30) Hepatic encephalopathy Status: Acute (31) Hepatic encephalopathy Status: Acute (32) Hepatic encephalopathy Status: Acute (33) Hepatic encephalopathy Status: Acute (34) Hepatic encephalopathy Status: Acute (35) Hepatic encephalopathy Status: Acute (36) Hepatic encephalopathy Status: Acute (37) Hepatic encephalopathy Status: Acute (38) Hepatic encephalopathy Status: Acute (39) Hepatic encephalopathy Status: Acute (40) Hepatic encephalopathy Status: Acute (41) Hepatic encephalopathy Status: Acute (42) Hepatic encephalopathy Status: Acute (43) Hepatic encephalopathy Status: Acute (44) Hyperammonemia Status: Acute (45) Hyperammonemia Status: Acute (46) Hyperammonemia Status: Acute (47) Hyperammonemia Status: Acute (48) Hypocalcemia Status: Acute (49) Hypocalcemia Status: Acute (50) Hypocalcemia Status: Acute (51) Hypokalemia Status: Acute (52) Hypokalemia Status: Acute (53) Hypokalemia Status: Acute (54) Hypomagnesemia Status: Acute (55) Increased ammonia level Status: Acute (56) Intertrochanteric fracture of left femur Status: Acute (57) Left foot pain Status: Acute (58) Left shoulder pain Status: Acute (59) Leukopenia Status: Acute (60) Lightheaded Status: Acute (61) Low back pain Status: Acute (62) Malingering Status: Acute (63) Medical non-compliance Status: Acute (64) Migraine Status: Acute (65) Nausea Status: Acute (66) Nausea Status: Acute (67) Nausea Status: Acute (68) Nausea Status: Acute (69) Nausea & vomiting Status: Acute (70) Noncompliance Status: Acute (71) Noncompliance with medication regimen Status: Acute (72) Pain in pelvis Status: Acute (73) Pain, joint, ankle, right Status: Acute (74) Pancytopenia Status: Acute (75) Persistent vomiting Status: Acute (76) Post-operative pain Status: Acute (77) Right ear pain Status: Acute (78) Right groin pain Status: Acute (79) Right hip pain Status: Acute (80) Right upper lobe pneumonia Status: Acute (81) RUQ abdominal pain Status: Acute (82) Seizure Status: Acute (83) Sepsis Status: Acute (84) UTI (urinary tract infection) Status: Acute (85) Vomiting Status: Acute (86) Weakness Status: Acute (87) Weakness Status: Acute (88) Weakness Status: Acute (89) Weakness Status: Acute Review of Systems Constitutional: + weakness, No fever, No chills Respiratory: No cough, No shortness of breath Abdomen: + nausea, + diarrhea, No pain, No vomiting Musculoskeletal: No joint pain, No muscle pain Female : No dysuria, No urinary frequency Neurologic: No memory loss, No weakness Psychiatric: No depression symptoms, No anhedonism Objective Vital Signs Date Time Temp Pulse Resp B/P (MAP) Pulse Ox O2 Delivery O2 Flow Rate FiO2 08/03/17 15:24 36.7 76 17 138/79 (98) 100 Room Air 08/03/17 11:52 36.5 82 18 95/60 (72) 99 Room Air 5/6/18 08:30 98 Room Air 08/03/17 08:02 36.5 85 16 138/71 (93) 95 08/03/17 00:00 100 Room Air 08/02/17 23:07 36.4 76 18 125/68 (87) 97 Room Air 08/02/17 16:08 36.8 88 18 163/84 (110) 100 Room Air Physical Exam General Appearance: WD/WN, no apparent distress Cardiovascular: regular rate, rhythm, no murmur Abdomen: normal bowel sounds, non tender, soft Extremities: no pedal edema, no calf tenderness Neurologic/Psychiatric: alert, oriented x 3 Skin: normal color, no rash Laboratory Results Last 24 Hours Test 08/02/17 16:53 08/02/17 20:11 08/03/17 07:45 08/03/17 11:42 Bedside Glucose 154 mg/dl 115 mg/dl 86 mg/dl 135 mg/dl Assessment and Plan 51 yo F with history of liver cirrhosis admitted on July 26, 2017 because of severe nausea with failed outpatient Compazine, Phenergan, Zofran, and she cannot take Reglan due to her seizure disorder. Also had early hepatic encephalopathy, this resolved rapidly PMHx of liver cirrhosis secondary to seizure med hepatotoxicity, DMII on insulin , hypothyroidism, seizure disorder, migraines, asthma, parkinsonism, bipolar disorder, depression, chronic pancytopenia, and GERD, traumatic R femoral fracture with intertrochanteric vijaya placed Severe nausea/dry heaves have resolved,continues with complaints of nausea did advance to regular diet and worsened will downgrade to liquids since she complained of more nausea did try marinol, however with increased confusion will stop phenergan and other medicines that could lead to confusion - GI consult - EGD was normal, pt is now desiring colonoscopy - Continue Protonix transition to po - stool cultures negative Toxic encephalopathy, pt had been frequently requesting prn meds, will stop many /any that could cause confusion, monitor ammonia and follow Hepatic encephalopathy secondary to inability to take lactulose, pt is intermittently refusing meds but is recommended to continue rifaximin, lactulose. ordered portal vein us which she refused Back pain secondary to fall, xray evaluation did not show x ray evaluation - continue home dose oxycodone cautiously given some confusion - patient continues to request IV dilaudid, once again continue to reinforce that we will not be using medications such as that did complain of right wrist pain which was x rayed and negative for fx Hypomagnesemia-replete 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 type 2 on insulin- ss, bsgs ac & hs, her po intake is variable and will use ssi Hypothyroidism Synthroid, continue but change to po Seizure disorder,staff present with her fall do not feel was SZ no post ictal issues, she is on her usual home keppra dosing, checking send out keppra and trileptal levels Continued [facility] stay due to: multiple IV medications needed Discharge planning: home
[2017-08-03] MEDS: DICLOFENAC SOD 1% GEL 100 GM TUBE EXT PRN (20:02)
[2017-08-03] MEDS: MIRTAZAPINE TAB 15 MG TAB PO SCH (21:56)
[2017-08-03] MEDS: TOPIRAMATE 25 MG TAB PO SCH (21:57)
[2017-08-04] MEDS: OXYCODONE HCL IR 5 MG TAB (IMMEDIATE RELEASE) PO PRN ×3 (03:34→21:08)
[2017-08-04] MEDS: LEVOTHYROXINE 75 MCG TAB PO SCH (06:30)
[2017-08-04] MEDS: SODIUM CHLORIDE 0.9% 1000ML 1,000 ML IV SCH ×2 (06:48→21:02)
[2017-08-04 07:35] VITALS: BP 124/70; PULSE 78; TEMP 36.9; O2SAT 97
[2017-08-04 07:45] LABS: HEMATOCRIT 25.6 % (37-47); HEMOGLOBIN 9.5 g/dL (12.0-16.0); MEAN CELL VOLUME 95.9 fL (80-100); MEAN CORPUSCULAR HEMOGLOBIN 35.6 pg (25-34); MEAN CORPUSCULAR HGB CONC 37.1 g/dl (32-36); RED CELL DISTRIBUTION WIDTH CV 14.8 % (11.5-14.5); RED CELL DISTRIBUTION WIDTH SD 51.4 fL (36.4-46.3); WHITE BLOOD COUNT 3.41 K/uL (4.8-10.8)
[2017-08-04 07:49] LABS: MEAN PLATELET VOLUME 9.2 fL (7.4-10.4); PLATELET COUNT 86 K/uL (130-400)
[2017-08-04] MEDS: CARBOHYDRATES FOR HYPOGLYCEMIA PO PRN (07:50)
[2017-08-04] MEDS ORDERED: DEXTROSE 50% 50 ML SYR IV PRN (08:00)
[2017-08-04] MEDS ORDERED: GLUCAGON FOR INJ 1 MG VIAL IM PRN (08:00)
[2017-08-04] MEDS ORDERED: GLUCOSE 10 TABS/TUBE PO PRN (08:00)
[2017-08-04] MEDS ORDERED: GLUCOSE 40% GEL 15 GM TUBE PO PRN (08:00)
[2017-08-04 08:08] LABS: ALBUMIN 2.6 gm/dl (3.4-5.0); CREATININE 0.55 mg/dl (0.60-1.20); POTASSIUM 3.7 mmol/L (3.5-5.1); TOTAL PROTEIN 5.2 gm/dl (6.4-8.2)
--- NOTE | 2017-08-04 09:24 | DIAGNOSTIC IMAGING REPORT ---
DUPLEX PORTAL HEPATIC VEINS CLINICAL HISTORY: 51 years-old Female presenting with eval for portal vein thrombosis. TECHNIQUE: Real-time grayscale and color and spectral Doppler ultrasound imaging of the aorta and mesenteric vessels was performed. COMPARISON: CT from 07/23/2017 and ultrasound from 06/27/2017. FINDINGS: Hepatic veins: Right, middle, and left hepatic veins patent though with blunted waveforms. Hepatic arteries: Proper hepatic artery patent with normal arterial waveform though elevated velocity of 122 cm/s. Portal veins: Retrograde flow in the main portal vein, which has a velocity of 14 cm/s in a hepatofugal direction. The left portal vein also demonstrates hepatofugal flow. The right portal vein has not detectable flow. Inferior vena cava: Grossly patent though nonmeasurable flow by spectral Doppler. IMPRESSION: 1. Hepatofugal portal venous flow. Left and main portal veins patent. Patency of the right portal vein cannot be confirmed. The lack of measurable flow on spectral Doppler in the right portal vein may be due to slow flow. If there is clinical concern, contrast-enhanced CT could be obtained. 2. Elevated velocity of the hepatic artery secondary to compensatory hypertrophy. Electronically signed by: Davis Gallegos M.D. 08/04/2017 9:22 AM Dictated Date/Time: 08/04/2017 9:19 AM
[2017-08-04] MEDS: PANTOprazole SOD 40 MG TAB PO SCH ×2 (10:04→20:57)
[2017-08-04] MEDS: SERTRALINE HCL 50 MG TAB PO SCH (10:04)
[2017-08-04] MEDS: MAGNESIUM OXIDE 400 MG TAB PO SCH ×2 (10:05→20:56)
[2017-08-04] MEDS: SPIRONOLACTONE 25 MG TAB PO SCH (10:05)
[2017-08-04] MEDS: CeleBREX 100 MG CAP PO SCH (10:06)
[2017-08-04] MEDS: TOPIRAMATE 100 MG TAB PO SCH (10:09)
[2017-08-04] MEDS: RIFAXIMIN TAB 550 MG TAB PO SCH ×2 (10:10→20:56)
[2017-08-04] MEDS: TOBRAMYCIN/DEXAMETHASONE OPH SUSP 2.5 ML BTL OTR SCH ×3 (10:11→20:59)
[2017-08-04] MEDS: LEVETIRACETAM 1000 MG PO SCH ×2 (10:12→20:58)
[2017-08-04] MEDS: LACTULOSE SYRUP 10 GM/15 ML BTL 473 ML PO SCH ×4 (10:13→20:55)
[2017-08-04] MEDS: OXCARBAZEPINE 300 MG TAB PO SCH ×2 (10:13→20:58)
[2017-08-04] MEDS: INSULIN HUMAN LISPRO (humaLOG) 100 UNITS/ML VIAL SC SCH ×4 (10:19→21:00)
[2017-08-04] MEDS: ONDANSETRON INJ 8 MG in DEXTROSE 5% 50ML 50 ML IV PRN ×2 (12:25→20:55)
--- NOTE | 2017-08-04 13:20 | Psychiatric Consultation ---
Consultation Date of Consultation August 04, 2017. Identifying Data 51-year-old female with a history of depression, prescription medication abuse, and borderline personality disorder, multiple medical problems , and poor treatment compliance who was admitted to the hospitalist service 07/26 for nausea. Psychiatry is consulted due to reports of confusion and memory impairment, with no clear medical cause. Chief Complaint "Just to see what my confusion's about ". History of Present Illness The patient is well known to me from multiple previous consultations and admissions to the behavioral health unit. She was last on our unit in February 2017 for depression with suicidal ideation. Significant amount of time was spent clarifying her home medications, she was not necessarily forthcoming, for example reported being oxycodone, when it had in fact been stopped months before. She tends to focus on medications, wanting a new medication for every symptom, and was focused on getting medications for sleep during that hospitalization. Care was coordinated with her outpatient psychiatrist, who had repeatedly informed her that her sleep difficulties were behavioral in nature and not something to be addressed with medication, but she persisted in trying to get more sleep medications while in the hospital. Ultimately the only medication adjustment was an increase in mirtazapine to target mood. She was discharged to resume care with her outpatient psychiatric providers at [facility]. She was then admitted medically in March after a right hip fracture, for which she received surgery, and was discharged to acute rehab. She was seen in the emergency room 7 times in the month of June for a variety of complaints, and August 04 presented with nausea, for which she was admitted. She admitted she had stopped her lactulose several days prior, and also reported confusion and weakness. Her stated she was more sleepy than her baseline. She has been seen by GI, who believe her nausea is in part functional, related to medications and motility, as she responded well to the hospital regimen and lacks objective evidence of dehydration. Her ammonia level has decreased here, EGD was normal, and she has been receiving IV Phenergan, and has asked for the dose to be increased. She has also requested IV Dilaudid, and is getting oxycodone multiple times a day. Case management has been following, and she was referred to multiple nursing homes, but was then informed her insurance would not cover it, so requested to return home with home health. Yesterday, she had a trial of Marinol for nausea, and became more confused. She has been receiving additional lactulose for hyperammonemia, and ammonia today was 75.9. She has had multiple episodes of hypoglycemia, as low as 51 today. Discussed her case with JOSH Lozano, as the patient is reporting confusion, which does not fit with any known medical syndrome. This occurred in the context of discussing probable discharge with her. On my assessment, the patient was seen with Anselmo Lobo, MS 4, with her permission. She states that yesterday she became "really confused, I do not know where I am, having trouble remembering names and dates." She says this differs from her typical confusion, but cannot say how. She says she does not know how long she has been in the hospital, and when asked to give her best guess, says 2 days. She says it is Friday, the month is December, in the years 2011. She says she knows her first name is Sharyn, but cannot say her last name, where she lives, or whom she lives with. She says she lives with "a mariana, Dimitris, I think he is a friend." Of note, he is her , and he was involved in her treatment on the behavioral health unit in February. She denies feeling depressed, sleep disturbance, suicidal thoughts, homicidal thoughts, hallucinations, paranoia, and manic symptoms. She states that her appetite is "up and down" with her nausea. She denies any recent stressors, and denies any issues or concerns at home. When asked directly if there is reason that she prefers to stay in the hospital rather than go home, she denies this. Interestingly, as discussion proceeds about what has happened in her life since she was discharged from the behavioral health unit this past winter, it is clear that she is oriented to time, she is accurately referring to the current month, and is able to state what has been happening in her life for the past 3 months. She states that she fell and broke her hip in March, was in the hospital, and then went to a custodial for 2 months, from May to June. She says she was discharged to home in early June, and was home for about 4 weeks before she was admitted this time for nausea. She is still seeing Nico Barrera and Terry Hernandez at [facility], and says sertraline was added in the custodial by Dr. Mcneil, and increased by Lisa Barrera when she last saw her about 6 weeks ago. She has not seen her therapist for 1-2 months, and cannot state why. She further states that Dr. Mcneil prescribed her hydroxyzine for sleep when she was in the custodial, but it is not clear if that was continued after she left the custodial. She says she has been compliant with her psychotropic medications. She then asks "do you think I need to come upstairs?" When informed that she is not endorsing any symptoms that indicate her mental illness is poorly controlled or that would warrant inpatient admission, and asked why she would think she might need to come to the behavioral health unit, she says "I do not know, cuckoo." She agrees to allow us to contact Dimitris (her , listed as her emergency contact) for collateral information. She states she "just does not feel well," and has not been out of bed at all, as "I am on strict bed rest." Past Psychiatric History Current OP Treatment: psychiatrist (GHULAM Lindsay at [facility]), therapist (Terry Hernandez at [facility]) Prior OP Treatment: psychiatrist, therapist, case management rn Prior Psych Hospitalizations: [facility] (February 20172013) Access to a Gun: No Suicide Attempts: Yes Past Medication Trials Include but not limited to: Pristiq - stopped in September Trazodone - stopped in September Citalopram Paroxetine Sertraline Aripiprazole - may have caused seizures Risperidone Quetiapine Elavil Past Medical/Surgical History History of Concussion/Seizure: Yes (Seizure disorder) (1) Seizure (2) Hepatic encephalopathy (3) Medical non-compliance (4) Opiate abuse, continuous (5) Asthma (6) Diabetic gastroparesis (7) Portal Hypertension (8) Diab Ashley Wo Comp Type Ii Or Nos/Not Uncontrolled (9) Cirrhosis Allergies Allergies: Coded Allergies: Amoxicillin (Verified Allergy, Intermediate, HIVES; Has tolerated cephalosporins (Rocephin, Ceftin,Keflex, 07/26/17) Azithromycin (Verified Allergy, Intermediate, HIVES, 07/26/17) Baclofen (Verified Allergy, Intermediate, RASH, 07/26/17) Butalbital (Verified Allergy, Intermediate, HIVES, 07/26/17) Clarithromycin (Verified Allergy, Intermediate, RASH, 07/26/17) Dicyclomine (Verified Allergy, Intermediate, HIVES, 07/26/17) HIVES Penicillins (Verified Allergy, Intermediate, RASH; has tolerated cephs ( Rocephin, Keflex, Ceftin), 07/26/17) PT STATES SHE GETS WELTS FROM [facility] PER DR ROBLES Tetracyclines (Verified Allergy, Intermediate, DOXYCYCLINE-HIVES, 07/26/17) Sulindac (Verified Allergy, Mild, ALLERGY LISTED "CLONDORAL"--HIVES, ) Adhesives (Verified Allergy, Unknown, RASH, DUODERM=RED,ITCHY, 07/26/17) PLASTIC TAPE IS OK!!! DUODERM=RED,ITCHY Clavulanic Acid (Unverified Allergy, Unknown, diahrea , 07/26/17) Metronidazole (Verified Allergy, Unknown, SEIZURE, 07/26/17) Tramadol (Verified Allergy, Unknown, SEIZURES, 07/26/17) Metoclopramide (Verified Adverse Reaction, Severe, SEIZURES, 07/26/17) Insulin Aspart (Verified Adverse Reaction, Intermediate, NO ALLERGY!!!!!! , 08/01/17) PT SAYS HER INSURANCE (EVEN WHILE HOSPITALIZED) WILL NOT PAY FOR NOVOLOG!! ONLY HUMALOG!!! Blueberry (Verified Adverse Reaction, Mild, STOMACH PAIN, 07/26/17) Furosemide (Verified Adverse Reaction, Unknown, HIVES, 07/26/17) Home Medications Scheduled Ascorbic Acid (Vitamin C), 1,000 MG PO QAM Cholecalciferol (Vitamin D), 5,000 UNITS PO QAM Cranberry (Vaccinium Macrocarp (Cranberry Extract), 1 CAP PO BID Hydroxyzine Pamoate (Vistaril), 50 MG PO HS Ibuprofen (Advil), 400 MG PO UD Insulin Glargine (Lantus Solostar), 40 UNITS SC BID Insulin Lispro (Human) (Humalog Kwikpen), 20 UNITS SC AC Lactulose (Chronulac), 15 ML PO QAM Levetiracetam (Levetiracetam), 2,000 MG PO BID Levothyroxine Sodium (Levothyroxine Sodium), 75 MCG PO QAM Magnesium Oxide (Mg Supplement (Magnesium), 500 MG PO BID Mirtazapine (Mirtazapine), 45 MG PO HS Multivitamin (Multivitamin), 1 TAB PO QAM Omeprazole (Prilosec), 20 MG PO QAM Oxcarbazepine (Trileptal), 300 MG PO BID Probiotic Product (Probiotic), 1 CAP PO QAM Promethazine HCl (Promethazine HCl), 25 MG PO UD Rifaximin (Xifaxan), 550 MG PO BID Sertraline (Zoloft), 100 MG PO QAM Spironolactone (Aldactone), 50 MG PO QAM Topiramate (Topamax ), 75 MG PO QPM Topiramate (Topamax), 100 MG PO QAM Vitamin A (Vitamin A), 1 CAP PO QAM Zinc Gluconate (Zinc), 50 MG PO BID [Tobradex Otic], 5 DROPS OTR TID Scheduled PRN Ondansetron Odt (Zofran Odt), 8 MG SL Q6H PRN for Nausea Oxycodone Ir (Roxicodone Ir), 5 MG PO Q6H PRN for Pain Rizatriptan Benzoate (Maxalt), 10 MG PO DIRECTED PRN for Migraine Family History Depression Hypertension Unknown as patient is adopted. Alcohol Use Alcohol Use In Past 12 Months: Yes (Drinks a glass of wine or beer once a year. ) Smoking Use Smoking Status: Never Smoker Substance History Denies abusing illicit drugs, but often abuses/over uses prescription medications. Personal History Lives in: [place] with her Childhood: Grew up locally, adopted at 6 months old. Adoptive father is , and adoptive mother has dementia. She has a brother who is the biological child of her adoptive parents. Education: started college Work History: Unemployed on disability. 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 Relationship History: Children: none Spiritual Affiliation: buddhist Legal History: none Psychological Trauma History: Denies Hx Traumatic Event, Emotional Abuse Review of Systems 10 systems review: Patient reports "a little bit of tingle" in her feet, nausea and dry heaves, difficulty hearing. All others negative except as stated above. Examination Vital Signs Vital Signs Past 12 Hours Date Time Temp Pulse Resp B/P (MAP) Pulse Ox O2 Delivery O2 Flow Rate FiO2 08/04/17 10:15 Room Air 08/04/17 07:35 36.9 78 18 124/70 (88) 97 Room Air Laboratory Results Last 24 Hours Test 08/03/17 16:35 08/03/17 20:24 08/04/17 07:30 08/04/17 07:34 Bedside Glucose 77 mg/dl 151 mg/dl White Blood Count 3.41 K/uL Red Blood Count 2.67 M/uL Hemoglobin 9.5 g/dL Hematocrit 25.6 % Mean Corpuscular Volume 95.9 fL Mean Corpuscular Hemoglobin 35.6 pg Mean Corpuscular Hemoglobin Concent 37.1 g/dl RDW Standard Deviation 51.4 fL RDW Coefficient of Variation 14.8 % Platelet Count 86 K/uL Mean Platelet Volume 9.2 fL Platelet Estimate DECREASED Sodium Level 135 mmol/L Potassium Level 3.7 mmol/L Chloride Level 103 mmol/L Carbon Dioxide Level 25 mmol/L Anion Gap 8.0 mmol/L Blood Urea Nitrogen 3 mg/dl Creatinine 0.55 mg/dl Est Creatinine Clear Calc Drug Dose 137.2 ml/min Estimated GFR () 125.9 Estimated GFR (Non- 108.6 BUN/Creatinine Ratio 4.8 Random Glucose 51 mg/dl Calcium Level 7.0 mg/dl Total Bilirubin 1.4 mg/dl Aspartate Amino Transf (AST/SGOT) 61 U/L Alanine Aminotransferase (ALT/SGPT) 51 U/L Alkaline Phosphatase 234 U/L Total Protein 5.2 gm/dl Albumin 2.6 gm/dl Globulin 2.6 gm/dl Albumin/Globulin Ratio 1.0 Ammonia 75.9 umol/L Test 08/04/17 07:44 08/04/17 08:05 08/04/17 11:19 Bedside Glucose 61 mg/dl 83 mg/dl 140 mg/dl Mental Examination During interview pt is: other (Alert and oriented to self and situation, and although she initially states the month is December the 2011, she later provides her recent history accurately and is able to state the month.) Appearance: appropriately dressed (Hospital gown), appropriately groomed, other (Appears older than stated age, obese, and sedated.) Eye contact is: good Motor behavior is: no abnormal motor movements Speech: other (Slowed) Affect: other (Sedated) Mood is: other ("Good") Thought process: goal directed Thought content: reality based without delusions Suicidal thought are: denied Homicidal thoughts are: denied Hallucinations: denies auditory, denies visual Cognition: attention grossly intact, language grossly intact, other (Patient reports memory disturbance, but reports are inconsistent) Intelligence estimated to be: below average Insight: impaired Judgement: impaired Impression / Recommendations Impression 51-year-old white female with a history of prescription medication abuse , borderline personality disorder, and major depression as well as multiple active medical problems and poor compliance with treatment who is admitted with nausea, thought to be functional after a GI assessment. Her reports of impaired cognition are inconsistent at best, and certainly cannot rule out malingering, as she appears to like being in the hospital, she is taking care of and has access to opiate pain medications. See further recommendations below. Risk Factors Assessment : Yes /single/: No Higher / Fall in social status: No Access to guns: No Health problems: Yes Mental Health Diagnoses: Yes Substance use disorders: Yes Previous attempt: Yes Previous psychiatric stay: Yes Hopelessness: No Smoker: No Protective Factors Assessment : Yes Responsible for young children: No Employed: No Stable relationships: Yes Supportive family: Yes Good rapport with provider: Yes Absence of risk factors above: Yes (Patient denies active mood symptoms, psychotic symptoms, and thoughts of harming herself or others.) Recommendations (1) Opiate abuse, continuous The aunt has a history of abusing prescription medications and misrepresenting what she is prescribed when she comes into the hospital. Reviewed PDMP; patient would have run out of oxycodone several weeks ago, as she was getting prescriptions from Dr. Kevin Batista written on 05/14/2017, 1 week supply at a time, which she filled regularly from May until 07/01/2017, which was her last filled prescription. It was for 15 day supply, so would have run out on 07/16/2017. The patient was advised that given her history of abusing controlled substances, as well as her current reports of memory impairment and confusion, as well as recent falls, that she should be tapered off this medication over the next couple of days. She denied any pain currently, and states that she is bedridden per doctor's orders. Once medically appropriate, recommend she be out of bed working with physical therapy. (2) Borderline personality disorder Patient has a history of BPD, and often uses immature coping mechanisms and on healthy ways to meet her needs. Recommend ongoing discussion with her about what she is getting out of being in the hospital, and what she needs in order to feel ready for discharge. To that end, I have asked the medical student contact her with her permission to get collateral information and explore ways that we can assist her in preparing for discharge. Her students conversation with the , she was not showing signs of depression or confusion at home. He thought her confusion yesterday started after taking Marinol. The only stressor he was aware of is her mother, who lives in the [facility], and has been ill. The patient wants to spend Mother's Day with her. (3) Depression Patient denies active mood symptoms. Continue home doses of mirtazapine and sertraline, and coordinate care with her outpatient mental health providers at [facility]. Ensure timely follow-up after discharge. Avoid additional medications, as she frequently asks for medications for sleep and anxiety, which then contribute to altered mental status and falls. Encouraged behavioral techniques for managing insomnia and anxiety.
--- NOTE | 2017-08-04 14:14 | Medical Student: [facility] ---
Medical Student Progress Note Date of Service August 04, 2017. Progress Note Spoke with patient's via telephone. reports that he has not noticed worsening of the pt's depression nor did she show signs of confusion at home. He reports that the patient tends to sleep a lot, and her leisurely activities include watching TV and reading. She does not spend much time outdoors. She is compliant with her home medications for the most part; the only one they adjust at home is the lactulose (been on this for 2 years) which he says is adjusted based on her bowel movements. He reports that in the past the lactulose level did not seem to correlate with confusion. reported that it seemed like starting the Marinol may have coincided with the onset of pt's confusion. Marinol was d/c'ed yesterday. Pt appears to have a long history of depression and says she has been dealing with it and taking her antidepressants during their entire marriage ( in 2005). Pt has not worked since 2005. 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 They do not have any children. reports the only stressor he can think of is the pt's mother, who lives in the [facility], has been quite sick and pt would really like to be able to spend mother's day with her. The mother is taken care of by the pt's brother, who lives close by. reports that the only time he recalls her having SI was when she threatened to take 7 tablets of Percocets at once, which occurred back in 2010 due to anger, not depression. She has not had any recent SI or HI. His expresses that he hopes she can get "back to normal" and also get her appetite back or obtain the nutrition she needs since she has not really eaten normally for the last 2 weeks.
[2017-08-04 14:33] VITALS: BMI 34.5
--- NOTE | 2017-08-04 16:03 | Hospitalist Progress Note ---
Hospitalist Progress Note Date of Service August 04, 2017. (Karen Bernardo .JOSH) Subjective Pt evaluation today including: conversation w/ patient, conversation w/ family , physical exam, chart review, lab review, conversation w/ financial planning consultant (Dr. Saucedo) , review of inpatient medication list Voiding: no voiding problems Ms. Munson reports that she is confused today. When I ask what her name is, she says only De and when I ask what her last name is she says "I don't know" and again that she doesn't know where she is. When I ask the month she says, "December" when I ask the president she says "Gil". The rest of her presentation is not consistent with confusion, she is able to discuss when medications she has taken and ask about the Celebrex she had this morning. I did discuss her case with Dr. Saucedo and consulted her to see patient. She reports she is too weak to participate in physical therapy and that her legs hurt. ROS Constitutional: no chills, aches, sweats or fever Respiratory: no sob,cough, sputum, or wheezing Cardiac: no chest pain, palpitations, edema, orthopnea or lightheadedness GI: nausea, no vomiting, wants to eat : no dysuria or hesitancy Extremities: see HPI Skin: no rash All other systems reviewed and negative (Karen Bernardo ., JOSH) Medications Medications Administered Medications (Trade) Dose Ordered Sig/Danita Route Start Time Stop Time Status Last Admin Dose Admin Sodium Chloride 500 ml @ 999 mls/hr Q31M STAT IV 07/26/17 14:42 07/26/17 15:12 DC 07/26/17 15:38 999 MLS/HR Ondansetron HCl (Zofran Inj) 4 mg NOW STAT IV 07/26/17 15:54 07/26/17 15:55 DC 07/26/17 16:00 4 MG Lactulose (Chronulac Syrup) 30 gm NOW STAT PO 07/26/17 16:27 07/26/17 16:29 DC 07/26/17 17:09 30 GM Ondansetron HCl (Zofran Inj) 4 mg NOW STAT IV 07/26/17 17:06 07/26/17 17:07 DC 07/26/17 17:09 4 MG Insulin Glargine (Lantus Solostar Pen) 20 units BID SC 07/26/17 21:00 08/02/17 15:17 DC 08/02/17 09:08 20 UNITS Insulin Aspart (novoLOG ASPART) SLIDING SCALE ACHS SC 07/27/17 07:00 08/01/17 04:17 DC 07/31/17 22:15 4 UNITS Lactulose (Chronulac Syrup) 10 gm QID PO 07/26/17 21:00 08/02/17 18:30 DC 08/02/17 08:59 10 GM Mirtazapine (Remeron Tab) 45 mg HS PO 07/26/17 21:00 08/25/17 20:59 08/03/17 21:56 45 MG Oxcarbazepine (Trileptal Tab) 300 mg BID PO 07/26/17 21:00 07/31/17 11:47 DC 07/31/17 11:19 300 MG Oxycodone HCl (Roxicodone Immediate Rel Tab) 5 mg Q6H PRN PO 07/26/17 18:30 08/04/17 12:44 DC 08/04/17 10:09 5 MG Rifaximin (Xifaxan Tab) 550 mg BID PO 07/26/17 21:00 08/25/17 20:59 08/04/17 10:10 550 MG Sertraline HCl (Zoloft Tab) 100 mg QAM PO 07/27/17 09:00 08/26/17 08:59 08/04/17 10:04 100 MG Spironolactone (Aldactone Tab) 12.5 mg QAM PO 07/27/17 09:00 08/01/17 11:47 DC 08/01/17 08:16 12.5 MG Topiramate (Topamax Tab) 75 mg QPM PO 07/26/17 21:00 08/25/17 20:59 08/03/17 21:57 75 MG Topiramate (Topamax Tab) 100 mg QAM PO 07/27/17 09:00 08/26/17 08:59 08/04/17 10:09 100 MG Hydroxyzine HCl (Vistaril Tab) 50 mg HS PO 07/26/17 21:00 08/25/17 20:59 Future Hold 08/02/17 21:38 50 MG Magnesium Oxide (Mag-Ox Tab) 800 mg BID PO 07/26/17 22:00 08/02/17 04:21 DC 08/01/17 21:12 800 MG Pantoprazole Sodium 40 mg/ Syringe 10 ml @ 5 mls/min DAILY@09,21 IV 07/26/17 21:00 08/01/17 20:18 DC 08/01/17 08:08 5 MLS/MIN Promethazine HCl 12.5 mg/Sodium Chloride 50.5 ml @ 204 mls/hr Q6H PRN IV 07/26/17 18:30 08/25/17 18:29 Future Hold 08/03/17 05:05 204 MLS/HR Sodium Chloride 1,000 ml @ 75 mls/hr [id number] IV 07/26/17 18:20 07/27/17 08:05 DC 07/26/17 22:48 75 MLS/HR Zolpidem Tartrate (Ambien Tab) 5 mg HSZ PRN PO 07/26/17 18:30 08/25/17 18:29 Future Hold 08/02/17 21:42 5 MG Ondansetron HCl (Zofran Inj) 4 mg Q6H PRN IV 07/26/17 18:30 07/31/17 09:43 DC 07/31/17 03:57 4 MG Levetiracetam 1000 mg/Dextrose 110 ml @ 440 mls/hr Q12H IV 07/26/17 21:00 07/30/17 11:15 DC 07/30/17 09:14 440 MLS/HR Levothyroxine Sodium 35 mcg/ Syringe 1.75 ml @ 2 mls/min DAILY@09 IV 07/27/17 09:00 08/01/17 20:18 DC 08/01/17 09:24 2 MLS/MIN Miscellaneous (Iv Fluids Completed) 1 ea PRN PRN N/A 07/26/17 20:30 07/26/18 20:29 08/02/17 15:55 1 EA Potassium Chloride/Dextrose/ Sod Cl 1,000 ml @ 75 mls/hr [id number] IV 07/27/17 09:00 08/02/17 15:17 DC 08/02/17 12:57 75 MLS/HR Tobramycin/ Dexamethasone (Tobradex Oph Susp) 5 drops TID OTR 07/27/17 14:00 08/26/17 13:59 08/04/17 12:27 5 DROPS Magnesium Sulfate 100 ml @ 100 mls/hr NOW STAT IV 07/28/17 08:36 07/28/17 09:35 DC 07/28/17 09:13 100 MLS/HR Diphenhydramine HCl (Benadryl Cap) 25 mg Q8 PRN PO 07/28/17 23:15 08/27/17 23:14 Future Hold 08/03/17 07:51 25 MG Heparin Sodium (Porcine) (Heparin 100 Unit/ml 5ml Flush) 5 ml PRN PRN IV 07/28/17 23:30 08/27/17 23:29 07/30/17 02:12 5 ML Magnesium Sulfate 100 ml @ 100 mls/hr Q1H IV 07/29/17 08:20 07/29/17 10:19 DC 07/29/17 13:25 100 MLS/HR Insulin Glargine (Lantus Solostar Pen) 10 units ONE ONCE SC 07/29/17 08:45 07/29/17 08:51 DC 07/29/17 09:06 10 UNITS Oxycodone HCl (Roxicodone Immediate Rel Tab) 5 mg NOW STAT PO 07/30/17 02:09 07/30/17 02:18 DC 07/30/17 02:27 5 MG Levetiracetam (Keppra Tab) 2,000 mg BID PO 07/30/17 20:00 07/31/17 11:47 DC 07/31/17 11:19 2,000 MG Celecoxib (CeleBREX CAP) 100 mg DAILY PO 07/31/17 14:00 08/30/17 13:59 08/04/17 10:06 100 MG Ondansetron HCl 8 mg/Dextrose 54 ml @ 216 mls/hr Q6H PRN IV 07/31/17 11:15 08/30/17 11:14 08/04/17 12:25 216 MLS/HR Levetiracetam (Keppra Tab) 2,000 mg BID PO 07/31/17 20:00 08/30/17 19:59 08/04/17 10:12 2,000 MG Oxcarbazepine (Trileptal) 300 mg BID PO 07/31/17 20:00 08/30/17 19:59 08/04/17 10:13 300 MG Diclofenac Sodium (Voltaren 1% Top Gel) 1 appln BID PRN EXT 08/01/17 02:00 08/31/17 01:59 08/03/17 20:02 1 APPLN Insulin Human Lispro (humaLOG) SLIDING SCALE ACHS SC 08/01/17 06:30 08/31/17 06:29 08/04/17 12:30 4 UNITS Spironolactone (Aldactone Tab) 25 mg QAM PO 08/02/17 08:00 08/26/17 08:59 08/04/17 10:05 25 MG Pantoprazole Sodium (Protonix Tab) 40 mg BID PO 08/01/17 20:00 08/05/17 08:01 08/04/17 10:04 40 MG Levothyroxine Sodium (Synthroid Tab) 75 mcg DAILYBB PO 08/02/17 06:30 09/01/17 06:29 08/03/17 07:41 75 MCG Magnesium Oxide (Mag-Ox Tab) 800 mg BID PO 08/02/17 08:00 09/01/17 07:59 08/04/17 10:05 800 MG Insulin Glargine (Lantus Solostar Pen) 30 units BID SC 08/02/17 20:00 08/04/17 08:56 DC 08/03/17 22:05 30 UNITS Sodium Chloride 1,000 ml @ 75 mls/hr [id number] IV 08/02/17 15:45 09/01/17 15:44 08/04/17 06:48 75 MLS/HR Diphenhydramine HCl (Benadryl Inj) 25 mg Q6H PRN IV 08/02/17 15:30 09/01/17 15:29 08/03/17 05:13 25 MG Lactulose (Chronulac Syrup) 10 gm QID PO 08/02/17 20:00 08/25/17 20:59 08/04/17 12:26 10 GM Dronabinol (Marinol Cap) 5 mg BID PO 08/03/17 08:45 08/03/17 13:25 DC 5/6/18 10:05 5 MG Carbohydrates (Carbohydrates For Hypoglycemia) 15-30 GRAMS 15 grams if BSG 54-69... UD PRN PO 08/04/17 08:00 09/03/17 07:59 08/04/17 07:50 15 GM (Karen Bernardo CRNP) Objective Vital Signs Date Time Temp Pulse Resp B/P (MAP) Pulse Ox O2 Delivery O2 Flow Rate FiO2 08/04/17 15:18 Room Air 08/04/17 10:15 Room Air 08/04/17 07:35 36.9 78 18 124/70 (88) 97 Room Air 08/04/17 00:00 Room Air 08/03/17 22:56 36.7 78 18 129/74 (92) 97 Room Air 08/03/17 19:20 79 18 147/73 (97) Room Air 98 08/03/17 18:21 80 146/94 (111) 98 Room Air 08/03/17 16:07 75 19 128/73 (91) 100 Room Air 08/03/17 16:00 100 Room Air (Karen Bernardo CRNP) Physical Exam Notes: General: no distress Eyes: normal inspection, PERLL Respiratory: chest non tender, clear to auscultation, normal breath sounds, no respiratory distress, no accessory muscle use Cardiac: regular rate and rhythm, no rub or gallop, no murmur, no edema, no jvd GI/: active bowel sounds, no abd pain or tenderness, soft, non distended Extremities: normal range of motion, normal strength, non tender Neuro/Psych: alert, answered my orientation questions incorrectly but otherwise able to converse coherently, unhappy disposition, no focal neural deficits Skin: normal color, dry (Karen Bernardo CRNP) Laboratory Results Last 24 Hours Test 08/03/17 16:35 08/03/17 20:24 08/04/17 07:30 08/04/17 07:34 Bedside Glucose 77 mg/dl 151 mg/dl White Blood Count 3.41 K/uL Red Blood Count 2.67 M/uL Hemoglobin 9.5 g/dL Hematocrit 25.6 % Mean Corpuscular Volume 95.9 fL Mean Corpuscular Hemoglobin 35.6 pg Mean Corpuscular Hemoglobin Concent 37.1 g/dl RDW Standard Deviation 51.4 fL RDW Coefficient of Variation 14.8 % Platelet Count 86 K/uL Mean Platelet Volume 9.2 fL Platelet Estimate DECREASED Sodium Level 135 mmol/L Potassium Level 3.7 mmol/L Chloride Level 103 mmol/L Carbon Dioxide Level 25 mmol/L Anion Gap 8.0 mmol/L Blood Urea Nitrogen 3 mg/dl Creatinine 0.55 mg/dl Est Creatinine Clear Calc Drug Dose 137.2 ml/min Estimated GFR () 125.9 Estimated GFR (Non- 108.6 BUN/Creatinine Ratio 4.8 Random Glucose 51 mg/dl Calcium Level 7.0 mg/dl Total Bilirubin 1.4 mg/dl Aspartate Amino Transf (AST/SGOT) 61 U/L Alanine Aminotransferase (ALT/SGPT) 51 U/L Alkaline Phosphatase 234 U/L Total Protein 5.2 gm/dl Albumin 2.6 gm/dl Globulin 2.6 gm/dl Albumin/Globulin Ratio 1.0 Ammonia 75.9 umol/L Test 08/04/17 07:44 08/04/17 08:05 08/04/17 11:19 Bedside Glucose 61 mg/dl 83 mg/dl 140 mg/dl (Karen Bernardo, JOSH) Assessment and Plan 51 yo F with history of liver cirrhosis admitted on July 26, 2017 because of severe nausea with failed outpatient Compazine, Phenergan, Zofran, and she cannot take Reglan due to her seizure disorder. Also had early hepatic encephalopathy PMHx of liver cirrhosis secondary to seizure med hepatotoxicity, DMII on insulin , hypothyroidism, seizure disorder, migraines, asthma, parkinsonism, bipolar disorder, depression, chronic pancytopenia, and GERD, traumatic R femoral fracture with intertrochanteric vijaya placed Hepatic encephalopathy secondary to inability to take lactulose, cirrhosis - resolved - ammonia level decreased from 140 to 75, ammonia 75 again today - Continue rifaximin, lactulose - increased spironolactone to 25 mg daily from 12.5 mg, patient takes 50 mg at home New onset confusion - I am unconvinced of the authenticity of her disorientation especially as it is inconsistent with the rest of her behavior and she has no neural deficits. In an attempt to cut back any medications that would interfere with her mentation, we will complete a rapid taper of her oxycodone per psych rec. She has also had her phenergine discontinued. An attempt to use Marinol for nausea was made yesterday which resulted in confusion and so was discontinued as well - consulted psych Severe nausea/dry heaves - Reconsult GI - EGD was normal, patient's nausea persists - discontinue IV phenergan - see above - Continue Protonix IV twice daily - stool cultures negative - ngtd - Xray 5/ did show a mild non obstructing ileus Back pain secondary to fall, chronic back pain - taper oxycodone, - lidocaine patches, celebrex Hypomagnesemia - resolved 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 type 2 on insulin, hypoglycemia - ss, bsgs ac & hs - decrease lantus from 30 bid to 20 units bid Hypothyroidism - conntinue Synthroid dosing 75 mcg Seizure disorder, - continue home keppra dosing - fall unlikely to be secondary to seizure activity as witnessed by nursing, no loc, no post ictal state DVT prophylaxis - no heparin because of low platelets (Karen Bernardo ., JOSH) Supervising Note Dr. Suarez I performed a history and physical examination on the patient. I reviewed above note and agree with it. I discussed plan with APC and patient. During my face to face encounter with the patient, I answered all of the patient's questions. I am not quite sure if patient really has confusion. She does have history of hepatic encephalopathy.So she can wax and wane. At this moment, do not have any reason as to why patient would want to be in the hospital for any sort of personal gain. Patient denies this and states she feels safe at home, she just wants to get better. will monitor. (Marvel Suarez M.D.)
[2017-08-04 16:04] VITALS: BP 134/81; PULSE 74; TEMP 37.1; O2SAT 97
[2017-08-04 17:26] VITALS: BMI 34.5
[2017-08-04 17:39] VITALS: BMI 34.5
[2017-08-04] MEDS: TOPIRAMATE 25 MG TAB PO SCH (20:55)
[2017-08-04] MEDS: INSULIN GLARGINE SOLOSTAR 100 UNITS/ML 3 ML PEN SC SCH (21:00)
[2017-08-04] MEDS: MIRTAZAPINE TAB 15 MG TAB PO SCH (21:00)
[2017-08-05] MEDS: ONDANSETRON INJ 8 MG in DEXTROSE 5% 50ML 50 ML IV PRN ×4 (03:03→23:58)
[2017-08-05] MEDS: LEVOTHYROXINE 75 MCG TAB PO SCH (04:59)
[2017-08-05 05:55] LABS: HEMATOCRIT 24.9 % (37-47); HEMOGLOBIN 9.1 g/dL (12.0-16.0); MEAN CELL VOLUME 95.8 fL (80-100); MEAN CORPUSCULAR HGB CONC 36.5 g/dl (32-36); RED CELL DISTRIBUTION WIDTH CV 14.5 % (11.5-14.5); RED CELL DISTRIBUTION WIDTH SD 50.6 fL (36.4-46.3); WHITE BLOOD COUNT 2.96 K/uL (4.8-10.8)
[2017-08-05 05:59] LABS: MEAN PLATELET VOLUME 9.4 fL (7.4-10.4); PLATELET COUNT 78 K/uL (130-400)
[2017-08-05 06:26] LABS: CREATININE 0.56 mg/dl (0.60-1.20); POTASSIUM 3.6 mmol/L (3.5-5.1)
[2017-08-05 07:40] VITALS: BP 126/74; PULSE 71; TEMP 36.6; O2SAT 99
[2017-08-05] MEDS: CARBOHYDRATES FOR HYPOGLYCEMIA PO PRN (08:05)
[2017-08-05] MEDS: CeleBREX 100 MG CAP PO SCH (08:31)
[2017-08-05] MEDS: SERTRALINE HCL 50 MG TAB PO SCH (08:32)
[2017-08-05] MEDS: PANTOprazole SOD 40 MG TAB PO SCH (08:32)
[2017-08-05] MEDS: LACTULOSE SYRUP 10 GM/15 ML BTL 473 ML PO SCH ×4 (08:36→20:53)
[2017-08-05] MEDS: TOPIRAMATE 100 MG TAB PO SCH (08:36)
[2017-08-05] MEDS: SPIRONOLACTONE 25 MG TAB PO SCH (08:36)
[2017-08-05] MEDS: LEVETIRACETAM 1000 MG PO SCH ×2 (08:37→20:55)
[2017-08-05] MEDS: MAGNESIUM OXIDE 400 MG TAB PO SCH ×2 (08:37→20:56)
[2017-08-05] MEDS: OXCARBAZEPINE 300 MG TAB PO SCH ×2 (08:38→20:55)
[2017-08-05] MEDS: RIFAXIMIN TAB 550 MG TAB PO SCH ×2 (08:39→20:57)
[2017-08-05] MEDS: TOBRAMYCIN/DEXAMETHASONE OPH SUSP 2.5 ML BTL OTR SCH ×3 (08:39→20:54)
[2017-08-05] MEDS: INSULIN HUMAN LISPRO (humaLOG) 100 UNITS/ML VIAL SC SCH ×5 (08:40→21:00)
[2017-08-05] MEDS: OXYCODONE HCL IR 5 MG TAB (IMMEDIATE RELEASE) PO PRN ×2 (08:45→23:41)
[2017-08-05] MEDS: SODIUM CHLORIDE 0.9% 1000ML 1,000 ML IV SCH ×2 (09:53→23:57)
--- NOTE | 2017-08-05 10:00 | Gastroenterology Progress Note ---
Progress Note Date of Service: August 05, 2017 Subjective Pt evaluation today including: conversation w/ patient, physical exam, chart review, lab review Pt was seen and evaluated, chart reviewed. GI was asked to re-evaluate the pt for nausea. Recent EGD benign. She has history of nausea secondary to DM gastroparesis. She had generalized abd pain. Constant. Does not radiate. Has chronic nausea, no vomiting but does have dry heaving. No fever, chills, CP, SOB EGD 07/29/17: normal, no varices Review of Systems Constitutional: No fever, No chills Respiratory: No cough, No shortness of breath Cardiac: No chest pain Abdomen: + pain, + nausea, No vomiting, No diarrhea, No constipation Medications Current Inpatient Medications Medications (Trade) Dose Ordered Sig/Danita Route Start Time Stop Time Status Last Admin Dose Admin Mirtazapine (Remeron Tab) 45 mg HS PO 07/26/17 21:00 08/25/17 20:59 08/04/17 21:00 45 MG Rifaximin (Xifaxan Tab) 550 mg BID PO 07/26/17 21:00 08/25/17 20:59 08/05/17 08:39 550 MG Sertraline HCl (Zoloft Tab) 100 mg QAM PO 07/27/17 09:00 08/26/17 08:59 08/05/17 08:32 100 MG Topiramate (Topamax Tab) 75 mg QPM PO 07/26/17 21:00 08/25/17 20:59 08/04/17 20:55 75 MG Topiramate (Topamax Tab) 100 mg QAM PO 07/27/17 09:00 08/26/17 08:59 08/05/17 08:36 100 MG Hydroxyzine HCl (Vistaril Tab) 50 mg HS PO 07/26/17 21:00 08/25/17 20:59 Future Hold 08/02/17 21:38 50 MG Promethazine HCl 12.5 mg/Sodium Chloride 50.5 ml @ 204 mls/hr Q6H PRN IV 07/26/17 18:30 08/25/17 18:29 Future Hold 08/03/17 05:05 204 MLS/HR Magnesium Hydroxide (Milk Of Magnesia Susp) 30 ml Q12H PRN PO 07/26/17 18:30 08/25/17 18:29 Zolpidem Tartrate (Ambien Tab) 5 mg HSZ PRN PO 07/26/17 18:30 08/25/17 18:29 Future Hold 08/02/17 21:42 5 MG Polyethylene (Miralax Powder Packet) 17 gm DAILY PRN PO 07/26/17 18:30 08/25/17 18:29 Miscellaneous (Iv Fluids Completed) 1 ea PRN PRN N/A 07/26/17 20:30 07/26/18 20:29 08/02/17 15:55 1 EA Rizatriptan Benzoate (Maxalt Tab) 10 mg DAILY PRN PO 07/27/17 14:15 08/26/17 14:14 Tobramycin/ Dexamethasone (Tobradex Oph Susp) 5 drops TID OTR 07/27/17 14:00 08/26/17 13:59 08/05/17 08:39 5 DROPS Sodium Chloride ([place] Nasal [place]) 1 sprays PRN PRN NA 07/27/17 21:30 08/26/17 21:29 Diphenhydramine HCl (Benadryl Cap) 25 mg Q8 PRN PO 07/28/17 23:15 08/27/17 23:14 Future Hold 08/03/17 07:51 25 MG Heparin Sodium (Porcine) (Heparin 100 Unit/ml 5ml Flush) 5 ml PRN PRN IV 07/28/17 23:30 08/27/17 23:29 07/30/17 02:12 5 ML Miscellaneous (Remove Lidoderm Patch) 1 ea DAILY@21 N/A 07/30/17 21:00 08/29/17 20:59 Celecoxib (CeleBREX CAP) 100 mg DAILY PO 07/31/17 14:00 08/30/17 13:59 08/05/17 08:31 100 MG Ondansetron HCl 8 mg/Dextrose 54 ml @ 216 mls/hr Q6H PRN IV 07/31/17 11:15 08/30/17 11:14 08/05/17 03:03 216 MLS/HR Levetiracetam (Keppra Tab) 2,000 mg BID PO 07/31/17 20:00 08/30/17 19:59 08/05/17 08:37 2,000 MG Oxcarbazepine (Trileptal) 300 mg BID PO 07/31/17 20:00 08/30/17 19:59 08/05/17 08:38 300 MG Diclofenac Sodium (Voltaren 1% Top Gel) 1 appln BID PRN EXT 08/01/17 02:00 08/31/17 01:59 08/03/17 20:02 1 APPLN Insulin Human Lispro (humaLOG) SLIDING SCALE ACHS SC 08/01/17 06:30 08/31/17 06:29 08/05/17 09:42 4 UNITS Spironolactone (Aldactone Tab) 25 mg QAM PO 08/02/17 08:00 08/26/17 08:59 08/05/17 08:36 25 MG Levothyroxine Sodium (Synthroid Tab) 75 mcg DAILYBB PO 08/02/17 06:30 09/01/17 06:29 08/05/17 04:59 75 MCG Miconazole Nitrate (Desenex Powder) 1 appln PRN PRN EXT 08/01/17 20:30 08/31/17 20:29 Magnesium Oxide (Mag-Ox Tab) 800 mg BID PO 08/02/17 08:00 09/01/17 07:59 08/05/17 08:37 800 MG Sodium Chloride 1,000 ml @ 75 mls/hr [id number] IV 08/02/17 15:45 09/01/17 15:44 08/04/17 21:02 75 MLS/HR Diphenhydramine HCl (Benadryl Inj) 25 mg Q6H PRN IV 08/02/17 15:30 09/01/17 15:29 08/03/17 05:13 25 MG Lactulose (Chronulac Syrup) 10 gm QID PO 08/02/17 20:00 08/25/17 20:59 08/05/17 08:36 10 GM Glucose (Glucose 40% Gel) 15-30 GRAMS 15 GRAMS... UD PRN PO 08/04/17 08:00 09/03/17 07:59 Glucose (Glucose Chew Tab) 4-8 Tablets 4 Tabl... UD PRN PO 08/04/17 08:00 09/03/17 07:59 Dextrose (Dextrose 50% 50ML Syringe) 25-50ML 25ML FOR ... UD PRN IV 08/04/17 08:00 09/03/17 07:59 Glucagon (Glucagon Inj) 1 mg UD PRN IM 08/04/17 08:00 09/03/17 07:59 Carbohydrates (Carbohydrates For Hypoglycemia) 15-30 GRAMS 15 grams if BSG 54-69... UD PRN PO 08/04/17 08:00 09/03/17 07:59 08/05/17 08:05 15 GM Insulin Glargine (Lantus Solostar Pen) 20 units BID SC 08/04/17 20:00 08/25/17 20:59 08/04/17 21:00 20 UNITS Oxycodone HCl (Roxicodone Immediate Rel Tab) 5 mg BID PRN PO 08/04/17 12:45 08/09/17 18:29 08/05/17 08:45 5 MG Objective Vital Signs Date Time Temp Pulse Resp B/P (MAP) Pulse Ox O2 Delivery O2 Flow Rate FiO2 08/05/17 07:40 36.6 71 18 126/74 (91) 99 Room Air 08/05/17 00:00 Room Air 08/04/17 20:00 Room Air 08/04/17 16:04 37.1 74 18 134/81 (98) 97 Room Air 08/04/17 15:18 Room Air 08/04/17 10:15 Room Air Physical Exam General Appearance: no apparent distress Eyes: PERRL ENT: hearing grossly normal Neck: supple, trachea midline Respiratory/Chest: lungs clear, normal breath sounds Cardiovascular: regular rate, rhythm Abdomen: normal bowel sounds, non tender, soft, no organomegaly Neurologic/Psych: alert, normal mood/affect, oriented x 3 Skin: normal color, warm/dry Laboratory Results Last 24 Hours Test 08/04/17 11:19 08/04/17 16:44 08/04/17 20:21 08/05/17 05:40 Bedside Glucose 140 mg/dl 76 mg/dl 110 mg/dl White Blood Count 2.96 K/uL Red Blood Count 2.60 M/uL Hemoglobin 9.1 g/dL Hematocrit 24.9 % Mean Corpuscular Volume 95.8 fL Mean Corpuscular Hemoglobin 35.0 pg Mean Corpuscular Hemoglobin Concent 36.5 g/dl RDW Standard Deviation 50.6 fL RDW Coefficient of Variation 14.5 % Platelet Count 78 K/uL Mean Platelet Volume 9.4 fL Sodium Level 136 mmol/L Potassium Level 3.6 mmol/L Chloride Level 103 mmol/L Carbon Dioxide Level 25 mmol/L Anion Gap 7.0 mmol/L Blood Urea Nitrogen 3 mg/dl Creatinine 0.56 mg/dl Est Creatinine Clear Calc Drug Dose 134.7 ml/min Estimated GFR () 125.1 Estimated GFR (Non- 108.0 BUN/Creatinine Ratio 4.5 Random Glucose 74 mg/dl Calcium Level 7.0 mg/dl Test 08/05/17 07:58 08/05/17 08:28 Bedside Glucose 68 mg/dl 86 mg/dl Assessment and Plan 51 YO female with hx of NAFLD cirrhosis (MELD 10), admitted w n/v which likely multifactorial including functional, meds, DM gastroparesis. She is now s/p EGD without any explanation of her nausea. Perhaps her symptoms are secondary to narcotic analgesia. - No role for Phenergan/Reglan due to tremors - D/C narcotic analgesia - Gastroparesis diet Late entry: Patient was seen and examined on 08/06 with JOSH Okeefe whose note reflects our findings and plan.
[2017-08-05] MEDS: INSULIN GLARGINE SOLOSTAR 100 UNITS/ML 3 ML PEN SC SCH ×2 (10:34→21:05)
--- NOTE | 2017-08-05 10:37 | Clinical Documentation Query ---
CLINICAL DOCUMENTATION QUERY Patient admitted with Hepatic Encephalopathy due to inability to take Lactulose. To define the encephalopathy more accurately, please document whether the diagnosis is acute or chronic. In your clinical opinion is this patient being managed for: (x ) Acute hepatic encephalopathy, resolved ( ) Chronic hepatic encephalopathy ( ) Not Agree ( ) Other explanation of clinical findings (Please Explain. If no explanation given, this would be considered a no response.) ( ) Unable to determine ( ) Need to Discuss (Please call CDS via extension or qliq. If no interaction occurs this is considered a no response.) The medical record reflects the following clinical findings, treatment, and risk factors. Clinical Indicators: As above Treatment: Serial ammonia levels, Lactulose Risk Factors: Cirrhosis, medication noncompliance Please clarify and document your clinical opinion in the progress notes and discharge summary. Terms such as "probable", "suspected", "likely", "questionable", "possible", or "still to be ruled out" are acceptable. IF IN AGREEMENT, YOU MUST DOCUMENT ABOVE DIAGNOSTIC STATEMENT IN DAILY PROGRESS NOTES AND DISCHARGE SUMMARY. This document is not part of the patient's record. Thank You, Cherry Ibrahim RN [phone]
[2017-08-05 12:13] VITALS: BP 132/69; PULSE 70; TEMP 36.9; O2SAT 98
[2017-08-05 12:20] VITALS: BMI 34.5
[2017-08-05 16:00] VITALS: BP 127/73; PULSE 72; TEMP 36.8; O2SAT 97
[2017-08-05] MEDS: TOPIRAMATE 25 MG TAB PO SCH (20:57)
[2017-08-05] MEDS: MIRTAZAPINE TAB 15 MG TAB PO SCH (20:58)
--- NOTE | 2017-08-05 22:04 | Progress Note ---
Subjective Date of Service: August 05, 2017. Subjective Pt evaluation today including: conversation w/ patient 51 yo female reports continued nausea. She states that she would like to try full liquid diet. Patient denies any secondary gain of staying in hospital and reports that she wants to get stronger to go home. She is willing to try PT in AM. in room and is updated. Patient does not feel to be confused today. Problem List Medical Problems: (1) Acute bronchitis Status: Acute (2) Acute bronchitis Status: Acute (3) Acute hepatic encephalopathy Status: Acute (4) Alkaline phosphatase elevation Status: Acute (5) Altered mental status Status: Acute (6) Anemia Status: Acute (7) Back pain Status: Acute (8) Bradycardia Status: Acute (9) Breakthrough seizure Status: Acute (10) Burn Status: Acute (11) Change in mental status Status: Acute (12) Change in mental status Status: Acute (13) Change in mental status Status: Acute (14) Change in mental status Status: Acute (15) Chronic low back pain Status: Acute (16) Closed head injury Status: Acute (17) Dehydration Status: Acute (18) Dehydration Status: Acute (19) Diarrhea Status: Acute (20) Dizziness Status: Acute (21) Facial laceration Status: Acute (22) Failure of outpatient treatment Status: Acute (23) Fall Status: Acute (24) Fall Status: Acute (25) Fall Status: Acute (26) Fatigue Status: Acute (27) Head trauma Status: Acute (28) Hemorrhoid Status: Acute (29) Hepatic encephalopathy Status: Acute (30) Hepatic encephalopathy Status: Acute (31) Hepatic encephalopathy Status: Acute (32) Hepatic encephalopathy Status: Acute (33) Hepatic encephalopathy Status: Acute (34) Hepatic encephalopathy Status: Acute (35) Hepatic encephalopathy Status: Acute (36) Hepatic encephalopathy Status: Acute (37) Hepatic encephalopathy Status: Acute (38) Hepatic encephalopathy Status: Acute (39) Hepatic encephalopathy Status: Acute (40) Hepatic encephalopathy Status: Acute (41) Hepatic encephalopathy Status: Acute (42) Hepatic encephalopathy Status: Acute (43) Hepatic encephalopathy Status: Acute (44) Hyperammonemia Status: Acute (45) Hyperammonemia Status: Acute (46) Hyperammonemia Status: Acute (47) Hyperammonemia Status: Acute (48) Hypocalcemia Status: Acute (49) Hypocalcemia Status: Acute (50) Hypocalcemia Status: Acute (51) Hypokalemia Status: Acute (52) Hypokalemia Status: Acute (53) Hypokalemia Status: Acute (54) Hypomagnesemia Status: Acute (55) Increased ammonia level Status: Acute (56) Intertrochanteric fracture of left femur Status: Acute (57) Left foot pain Status: Acute (58) Left shoulder pain Status: Acute (59) Leukopenia Status: Acute (60) Lightheaded Status: Acute (61) Low back pain Status: Acute (62) Malingering Status: Acute (63) Medical non-compliance Status: Acute (64) Migraine Status: Acute (65) Nausea Status: Acute (66) Nausea Status: Acute (67) Nausea Status: Acute (68) Nausea Status: Acute (69) Nausea & vomiting Status: Acute (70) Noncompliance Status: Acute (71) Noncompliance with medication regimen Status: Acute (72) Pain in pelvis Status: Acute (73) Pain, joint, ankle, right Status: Acute (74) Pancytopenia Status: Acute (75) Persistent vomiting Status: Acute (76) Post-operative pain Status: Acute (77) Right ear pain Status: Acute (78) Right groin pain Status: Acute (79) Right hip pain Status: Acute (80) Right upper lobe pneumonia Status: Acute (81) RUQ abdominal pain Status: Acute (82) Seizure Status: Acute (83) Sepsis Status: Acute (84) UTI (urinary tract infection) Status: Acute (85) Vomiting Status: Acute (86) Weakness Status: Acute (87) Weakness Status: Acute (88) Weakness Status: Acute (89) Weakness Status: Acute Review of Systems ROS Constitutional: no chills, aches, sweats or fever Respiratory: no sob,cough, sputum, or wheezing Cardiac: no chest pain, palpitations, edema, orthopnea or lightheadedness GI: nausea, no vomiting, wants to eat : no dysuria or hesitancy Extremities: see HPI Skin: no rash All other systems reviewed and negative All Other Systems: Reviewed and Negative Objective Vital Signs Date Time Temp Pulse Resp B/P (MAP) Pulse Ox O2 Delivery O2 Flow Rate FiO2 08/05/17 16:45 Room Air 08/05/17 16:00 36.8 72 18 127/73 (91) 97 08/05/17 12:13 36.9 70 16 132/69 (90) 98 Room Air 08/05/17 08:35 Room Air 08/05/17 07:40 36.6 71 18 126/74 (91) 99 Room Air 08/05/17 00:00 Room Air Physical Exam Comments: General: no distress Eyes: normal inspection, PERLL Respiratory: chest non tender, clear to auscultation, normal breath sounds, no respiratory distress, no accessory muscle use Cardiac: regular rate and rhythm, no rub or gallop, no murmur, no edema, no jvd GI/: active bowel sounds, no abd pain or tenderness, soft, non distended Extremities: normal range of motion, normal strength, non tender Neuro/Psych: alert, answered my orientation questions incorrectly but otherwise able to converse coherently, unhappy disposition, no focal neural deficits Skin: normal color, dry Laboratory Results Last 24 Hours Test 08/05/17 05:40 08/05/17 07:58 08/05/17 08:28 08/05/17 11:51 White Blood Count 2.96 K/uL Red Blood Count 2.60 M/uL Hemoglobin 9.1 g/dL Hematocrit 24.9 % Mean Corpuscular Volume 95.8 fL Mean Corpuscular Hemoglobin 35.0 pg Mean Corpuscular Hemoglobin Concent 36.5 g/dl RDW Standard Deviation 50.6 fL RDW Coefficient of Variation 14.5 % Platelet Count 78 K/uL Mean Platelet Volume 9.4 fL Sodium Level 136 mmol/L Potassium Level 3.6 mmol/L Chloride Level 103 mmol/L Carbon Dioxide Level 25 mmol/L Anion Gap 7.0 mmol/L Blood Urea Nitrogen 3 mg/dl Creatinine 0.56 mg/dl Est Creatinine Clear Calc Drug Dose 134.7 ml/min Estimated GFR () 125.1 Estimated GFR (Non- 108.0 BUN/Creatinine Ratio 4.5 Random Glucose 74 mg/dl Calcium Level 7.0 mg/dl Bedside Glucose 68 mg/dl 86 mg/dl 138 mg/dl Test 08/05/17 16:39 08/05/17 17:09 08/05/17 17:32 08/05/17 20:46 Bedside Glucose 71 mg/dl 66 mg/dl 76 mg/dl 173 mg/dl Assessment and Plan 51 yo F with history of liver cirrhosis admitted on July 26, 2017 because of severe nausea with failed outpatient Compazine, Phenergan, Zofran, and she cannot take Reglan due to her seizure disorder. Also had early hepatic encephalopathy PMHx of liver cirrhosis secondary to seizure med hepatotoxicity, DMII on insulin , hypothyroidism, seizure disorder, migraines, asthma, parkinsonism, bipolar disorder, depression, chronic pancytopenia, and GERD, traumatic R femoral fracture with intertrochanteric vijaya placed Hepatic encephalopathy secondary to inability to take lactulose, cirrhosis - resolved - ammonia level decreased from 140 to 75, ammonia 75 again today - Continue rifaximin, lactulose - increased spironolactone to 25 mg daily from 12.5 mg, patient takes 50 mg at home New onset confusion This appears to have resolved. - I agree that the authenticity of her disorientation is in question especially as it is inconsistent with the rest of her behavior and she has no neural deficits. In an attempt to cut back any medications that would interfere with her mentation, we will complete a rapid taper of her oxycodone per psych rec. She has also had her phenergine discontinued. An attempt to use Marinol for nausea was made yesterday which resulted in confusion and so was discontinued as well - consulted psych Severe nausea/dry heaves -likely from excerbation diabetic gastroparesis - Reconsult GI - EGD was normal, patient's nausea persists - discontinue IV phenergan - see above - Continue Protonix IV twice daily - stool cultures negative - ngtd - Xray 07/30 did show a mild non obstructing ileus -consulted GI. Plan is to continue to decrease pain medicine. Back pain secondary to fall, chronic back pain - taper oxycodone, - lidocaine patches, celebrex -switch to cymbalta, explained risks and benefits. Hypomagnesemia - resolved 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 type 2 on insulin, hypoglycemia - ss, bsgs ac & hs - decrease lantus from 30 bid to 20 units bid Hypothyroidism - conntinue Synthroid dosing 75 mcg Seizure disorder, - continue home keppra dosing - fall unlikely to be secondary to seizure activity as witnessed by nursing, no loc, no post ictal state -depression switched zoloft to cymbalta. DVT prophylaxis - no heparin because of low platelets Continued [facility] stay due to: multiple IV medications needed Discharge planning: home
[2017-08-05 23:44] VITALS: BP 157/84; PULSE 67; TEMP 36.4; O2SAT 96
[2017-08-06] MEDS: LEVOTHYROXINE 75 MCG TAB PO SCH (06:42)
[2017-08-06 07:17] VITALS: BP 114/69; PULSE 62; TEMP 36.5; O2SAT 97
[2017-08-06] MEDS: TOBRAMYCIN/DEXAMETHASONE OPH SUSP 2.5 ML BTL OTR SCH ×3 (08:00→20:00)
[2017-08-06] MEDS: SPIRONOLACTONE 25 MG TAB PO SCH (08:10)
[2017-08-06] MEDS: DULOXETINE HCL 60 MG CAP PO SCH (08:10)
[2017-08-06] MEDS: RIFAXIMIN TAB 550 MG TAB PO SCH ×2 (08:10→21:05)
[2017-08-06] MEDS: TOPIRAMATE 100 MG TAB PO SCH (08:10)
[2017-08-06] MEDS: CeleBREX 100 MG CAP PO SCH (08:10)
[2017-08-06] MEDS: INSULIN HUMAN LISPRO (humaLOG) 100 UNITS/ML VIAL SC SCH ×4 (08:11→21:06)
[2017-08-06] MEDS: MAGNESIUM OXIDE 400 MG TAB PO SCH ×2 (08:11→21:04)
[2017-08-06] MEDS: LACTULOSE SYRUP 10 GM/15 ML BTL 473 ML PO SCH ×4 (08:11→21:03)
[2017-08-06] MEDS: LEVETIRACETAM 1000 MG PO SCH ×2 (08:14→21:03)
[2017-08-06] MEDS: OXCARBAZEPINE 300 MG TAB PO SCH ×2 (08:15→21:04)
[2017-08-06] MEDS: CARBOHYDRATES FOR HYPOGLYCEMIA PO PRN (08:18)
[2017-08-06] MEDS: OXYCODONE HCL IR 5 MG TAB (IMMEDIATE RELEASE) PO PRN (09:13)
[2017-08-06] MEDS: ONDANSETRON INJ 8 MG in DEXTROSE 5% 50ML 50 ML IV PRN ×2 (09:53→18:33)
[2017-08-06 11:22] VITALS: Ht 165.1 cm; Wt 94.0 kg
[2017-08-06] MEDS: SODIUM CHLORIDE 0.9% 1000ML 1,000 ML IV SCH (13:05)
--- NOTE | 2017-08-06 15:21 | DIAGNOSTIC IMAGING REPORT ---
MESENTERIC DUPLEX ULTRASOUND CLINICAL HISTORY: abd pain COMPARISON STUDY: 08/04/2017 FINDINGS: The current study is nondiagnostic due to a current lack of an optimal acoustic window due to bowel gas shadowing. On the hepatic artery was visualized which had a velocity of 95 cm/s. IMPRESSION: Nondiagnostic study. Nonvisualization of the portal and hepatic veins. Electronically signed by: Bran Hernandez M.D. 08/06/2017 3:20 PM Dictated Date/Time: 08/06/2017 3:18 PM
--- NOTE | 2017-08-06 15:33 | DIAGNOSTIC IMAGING REPORT ---
ABDOMEN LIMITED (US) CLINICAL HISTORY: left lower quadrant pain COMPARISON STUDY: Abdominal ultrasound 06/27/2017. FINDINGS: Real-time sonographic imaging of the left lower quadrant was performed with factory representative images. No masses or fluid collections identified within the visualized structures of the left lower quadrant. IMPRESSION: No sonographic abnormality within the left lower quadrant. Electronically signed by: Talon Cruz M.D. 08/06/2017 3:31 PM Dictated Date/Time: 08/06/2017 3:30 PM
[2017-08-06 15:39] VITALS: BP 127/73; PULSE 79; TEMP 36.6; O2SAT 97
[2017-08-06 16:00] VITALS: O2SAT 97
--- NOTE | 2017-08-06 16:10 | Hospitalist Progress Note ---
Hospitalist Progress Note Date of Service August 06, 2017. (Karen Bernardo ., JOSH) Subjective Pt evaluation today including: conversation w/ patient, physical exam, chart review, lab review, review of inpatient medication list Voiding: no voiding problems Ms. Munson is concerned for some left lower quadrant pain which she feels is her colon. She has had this pain for three days. Nothing makes it better and nothing makes it worse. Her diarrhea has improved, she is nauseas but not vomiting. ROS Constitutional: no chills, aches, sweats or fever Respiratory: no sob,cough, sputum, or wheezing Cardiac: no chest pain, palpitations, edema, orthopnea or lightheadedness GI: see HPI : no dysuria or hesitancy Extremities: no joint pain or weakness Skin: no rash All other systems reviewed and negative (Karen Bernardo ., JOSH) Medications Medications Administered Medications (Trade) Dose Ordered Sig/Danita Route Start Time Stop Time Status Last Admin Dose Admin Sodium Chloride 500 ml @ 999 mls/hr Q31M STAT IV 07/26/17 14:42 07/26/17 15:12 DC 07/26/17 15:38 999 MLS/HR Ondansetron HCl (Zofran Inj) 4 mg NOW STAT IV 07/26/17 15:54 07/26/17 15:55 DC 07/26/17 16:00 4 MG Lactulose (Chronulac Syrup) 30 gm NOW STAT PO 07/26/17 16:27 07/26/17 16:29 DC 07/26/17 17:09 30 GM Ondansetron HCl (Zofran Inj) 4 mg NOW STAT IV 07/26/17 17:06 07/26/17 17:07 DC 07/26/17 17:09 4 MG Insulin Glargine (Lantus Solostar Pen) 20 units BID SC 07/26/17 21:00 08/02/17 15:17 DC 08/02/17 09:08 20 UNITS Insulin Aspart (novoLOG ASPART) SLIDING SCALE ACHS SC 07/27/17 07:00 08/01/17 04:17 DC 07/31/17 22:15 4 UNITS Lactulose (Chronulac Syrup) 10 gm QID PO 07/26/17 21:00 08/02/17 18:30 DC 08/02/17 08:59 10 GM Mirtazapine (Remeron Tab) 45 mg HS PO 07/26/17 21:00 08/25/17 20:59 08/05/17 20:58 45 MG Oxcarbazepine (Trileptal Tab) 300 mg BID PO 07/26/17 21:00 07/31/17 11:47 DC 07/31/17 11:19 300 MG Oxycodone HCl (Roxicodone Immediate Rel Tab) 5 mg Q6H PRN PO 07/26/17 18:30 08/04/17 12:44 DC 08/04/17 10:09 5 MG Rifaximin (Xifaxan Tab) 550 mg BID PO 07/26/17 21:00 08/25/17 20:59 08/06/17 08:10 550 MG Sertraline HCl (Zoloft Tab) 100 mg QAM PO 07/27/17 09:00 08/05/17 17:39 DC 08/05/17 08:32 100 MG Spironolactone (Aldactone Tab) 12.5 mg QAM PO 07/27/17 09:00 08/01/17 11:47 DC 08/01/17 08:16 12.5 MG Topiramate (Topamax Tab) 75 mg QPM PO 07/26/17 21:00 08/25/17 20:59 08/05/17 20:57 75 MG Topiramate (Topamax Tab) 100 mg QAM PO 07/27/17 09:00 08/26/17 08:59 08/06/17 08:10 100 MG Hydroxyzine HCl (Vistaril Tab) 50 mg HS PO 07/26/17 21:00 08/25/17 20:59 Future Hold 08/02/17 21:38 50 MG Magnesium Oxide (Mag-Ox Tab) 800 mg BID PO 07/26/17 22:00 08/02/17 04:21 DC 08/01/17 21:12 800 MG Pantoprazole Sodium 40 mg/ Syringe 10 ml @ 5 mls/min DAILY@09,21 IV 07/26/17 21:00 08/01/17 20:18 DC 08/01/17 08:08 5 MLS/MIN Promethazine HCl 12.5 mg/Sodium Chloride 50.5 ml @ 204 mls/hr Q6H PRN IV 07/26/17 18:30 08/25/17 18:29 Future Hold 08/03/17 05:05 204 MLS/HR Sodium Chloride 1,000 ml @ 75 mls/hr [id number] IV 07/26/17 18:20 07/27/17 08:05 DC 07/26/17 22:48 75 MLS/HR Zolpidem Tartrate (Ambien Tab) 5 mg HSZ PRN PO 07/26/17 18:30 08/25/17 18:29 Future Hold 08/02/17 21:42 5 MG Ondansetron HCl (Zofran Inj) 4 mg Q6H PRN IV 07/26/17 18:30 07/31/17 09:43 DC 07/31/17 03:57 4 MG Levetiracetam 1000 mg/Dextrose 110 ml @ 440 mls/hr Q12H IV 07/26/17 21:00 07/30/17 11:15 DC 07/30/17 09:14 440 MLS/HR Levothyroxine Sodium 35 mcg/ Syringe 1.75 ml @ 2 mls/min DAILY@09 IV 07/27/17 09:00 08/01/17 20:18 DC 08/01/17 09:24 2 MLS/MIN Miscellaneous (Iv Fluids Completed) 1 ea PRN PRN N/A 07/26/17 20:30 07/26/18 20:29 08/02/17 15:55 1 EA Potassium Chloride/Dextrose/ Sod Cl 1,000 ml @ 75 mls/hr [id number] IV 07/27/17 09:00 08/02/17 15:17 DC 08/02/17 12:57 75 MLS/HR Tobramycin/ Dexamethasone (Tobradex Oph Susp) 5 drops TID OTR 07/27/17 14:00 08/26/17 13:59 08/05/17 14:40 5 DROPS Magnesium Sulfate 100 ml @ 100 mls/hr NOW STAT IV 07/28/17 08:36 07/28/17 09:35 DC 07/28/17 09:13 100 MLS/HR Diphenhydramine HCl (Benadryl Cap) 25 mg Q8 PRN PO 07/28/17 23:15 08/27/17 23:14 Future Hold 08/03/17 07:51 25 MG Heparin Sodium (Porcine) (Heparin 100 Unit/ml 5ml Flush) 5 ml PRN PRN IV 07/28/17 23:30 08/27/17 23:29 07/30/17 02:12 5 ML Magnesium Sulfate 100 ml @ 100 mls/hr Q1H IV 07/29/17 08:20 07/29/17 10:19 DC 07/29/17 13:25 100 MLS/HR Insulin Glargine (Lantus Solostar Pen) 10 units ONE ONCE SC 07/29/17 08:45 07/29/17 08:51 DC 07/29/17 09:06 10 UNITS Oxycodone HCl (Roxicodone Immediate Rel Tab) 5 mg NOW STAT PO 07/30/17 02:09 07/30/17 02:18 DC 07/30/17 02:27 5 MG Levetiracetam (Keppra Tab) 2,000 mg BID PO 07/30/17 20:00 07/31/17 11:47 DC 07/31/17 11:19 2,000 MG Celecoxib (CeleBREX CAP) 100 mg DAILY PO 07/31/17 14:00 08/30/17 13:59 08/06/17 08:10 100 MG Ondansetron HCl 8 mg/Dextrose 54 ml @ 216 mls/hr Q6H PRN IV 07/31/17 11:15 08/30/17 11:14 08/06/17 09:53 216 MLS/HR Levetiracetam (Keppra Tab) 2,000 mg BID PO 07/31/17 20:00 08/30/17 19:59 08/06/17 08:14 2,000 MG Oxcarbazepine (Trileptal) 300 mg BID PO 07/31/17 20:00 08/30/17 19:59 08/06/17 08:15 300 MG Diclofenac Sodium (Voltaren 1% Top Gel) 1 appln BID PRN EXT 08/01/17 02:00 08/31/17 01:59 08/03/17 20:02 1 APPLN Insulin Human Lispro (humaLOG) SLIDING SCALE ACHS SC 08/01/17 06:30 08/31/17 06:29 08/06/17 13:14 4 UNITS Spironolactone (Aldactone Tab) 25 mg QAM PO 08/02/17 08:00 08/26/17 08:59 08/06/17 08:10 25 MG Pantoprazole Sodium (Protonix Tab) 40 mg BID PO 08/01/17 20:00 08/05/17 08:01 DC 08/05/17 08:32 40 MG Levothyroxine Sodium (Synthroid Tab) 75 mcg DAILYBB PO 08/02/17 06:30 09/01/17 06:29 08/06/17 06:42 75 MCG Magnesium Oxide (Mag-Ox Tab) 800 mg BID PO 08/02/17 08:00 09/01/17 07:59 08/06/17 08:11 800 MG Insulin Glargine (Lantus Solostar Pen) 30 units BID SC 08/02/17 20:00 08/04/17 08:56 DC 08/03/17 22:05 30 UNITS Sodium Chloride 1,000 ml @ 75 mls/hr [id number] IV 08/02/17 15:45 09/01/17 15:44 08/06/17 13:05 75 MLS/HR Diphenhydramine HCl (Benadryl Inj) 25 mg Q6H PRN IV 08/02/17 15:30 09/01/17 15:29 08/03/17 05:13 25 MG Lactulose (Chronulac Syrup) 10 gm QID PO 08/02/17 20:00 08/25/17 20:59 08/06/17 12:05 10 GM Dronabinol (Marinol Cap) 5 mg BID PO 08/03/17 08:45 08/03/17 13:25 DC 08/03/17 10:05 5 MG Glucose (Glucose Chew Tab) 4-8 Tablets 4 Tabl... UD PRN PO 08/04/17 08:00 09/03/17 07:59 08/05/17 17:14 4 TABS Carbohydrates (Carbohydrates For Hypoglycemia) 15-30 GRAMS 15 grams if BSG 54-69... UD PRN PO 08/04/17 08:00 09/03/17 07:59 08/06/17 08:18 15 GM Insulin Glargine (Lantus Solostar Pen) 20 units BID SC 08/04/17 20:00 08/06/17 08:26 DC 08/05/17 21:05 20 UNITS Oxycodone HCl (Roxicodone Immediate Rel Tab) 5 mg BID PRN PO 08/04/17 12:45 08/06/17 08:26 DC 08/05/17 23:41 5 MG Duloxetine HCl (Cymbalta Cap) 60 mg QAM PO 08/06/17 08:00 09/05/17 07:59 08/06/17 08:10 60 MG Oxycodone HCl (Roxicodone Immediate Rel Tab) 5 mg DAILY PRN PO 08/06/17 08:30 08/09/17 18:29 08/06/17 09:13 5 MG (Karen Bernardo CRNP) Objective Vital Signs Date Time Temp Pulse Resp B/P (MAP) Pulse Ox O2 Delivery O2 Flow Rate FiO2 08/06/17 15:39 36.6 79 18 127/73 (91) 97 Room Air 08/06/17 08:45 Room Air 08/06/17 07:17 36.5 62 20 114/69 (84) 97 Room Air 08/06/17 00:25 Room Air 08/05/17 23:44 36.4 67 18 157/84 (108) 96 Room Air 08/05/17 16:45 Room Air (Karen Bernardo CRNP) Physical Exam Notes: General: no distress Eyes: normal inspection, PERLL Respiratory: chest non tender, clear to auscultation, normal breath sounds, no respiratory distress, no accessory muscle use Cardiac: regular rate and rhythm, no rub or gallop, no murmur, no edema, no jvd GI/: active bowel sounds, left lower quadrant tenderness, soft, non distended Extremities: normal range of motion, normal strength, non tender Neuro/Psych: alert and oriented x 3, normal mood and affect Skin: normal color, dry (Karen Bernardo CRNP) Laboratory Results Last 24 Hours Test 08/05/17 16:39 08/05/17 17:09 08/05/17 17:32 08/05/17 20:46 Bedside Glucose 71 mg/dl 66 mg/dl 76 mg/dl 173 mg/dl Test 08/06/17 07:43 08/06/17 08:34 08/06/17 10:05 08/06/17 11:33 Bedside Glucose 69 mg/dl 126 mg/dl 141 mg/dl Random Cortisol 6.05 mcg/dl (Karen Bernardo ., JOSH) Assessment and Plan 51 yo F with history of liver cirrhosis admitted on July 26, 2017 because of severe nausea with failed outpatient Compazine, Phenergan, Zofran, and she cannot take Reglan due to her seizure disorder. Also had early hepatic encephalopathy PMHx of liver cirrhosis secondary to seizure med hepatotoxicity, DMII on insulin , hypothyroidism, seizure disorder, migraines, asthma, parkinsonism, bipolar disorder, depression, chronic pancytopenia, and GERD, traumatic R femoral fracture with intertrochanteric vijaya placed Acute on Chronic Hepatic encephalopathy secondary to inability to take lactulose , cirrhosis - resolved - ammonia level decreased from 140 to 75, ammonia 75 again today - Continue rifaximin, lactulose - increased spironolactone to 25 mg daily from 12.5 mg, patient takes 50 mg at home New onset confusion - resolved - 08/04 patient was complaining that she felt confused and was not answering her orientation questions appropriately - I was unconvinced of the authenticity of her disorientation especially as it was inconsistent with the rest of her behavior and she had no neural deficits. In an attempt to cut back any medications that would interfere with her mentation, rapid taper of her oxycodone per psych rec. She has also had her Phenergan discontinued. An attempt to use Marinol for nausea was made 08/03 which resulted in confusion and so was discontinued as well - consulted psych Severe nausea/dry heaves - Reconsult GI - EGD was normal, patient's nausea persists - discontinue IV phenergan - see above - Continue Protonix IV twice daily - stool cultures negative - BC ngtd - Xray 07/30 did show a mild non obstructing ileus - US abd was unable to visualize mesenteric vasculature, no hernia or fluid collection - patient does not have leukocytosis or fever, diarrhea improving Back pain secondary to fall, chronic back pain - taper oxycodone, - lidocaine patches, celebrex Hypomagnesemia - resolved 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 type 2 on insulin, hypoglycemia - ss, bsgs ac & hs - decrease lantus from 20 bid to 10 units bid as patient continues to have morning hypoglycemia - random cortisol was normal Hypothyroidism - continue Synthroid dosing 75 mcg Seizure disorder, - continue home keppra dosing - fall unlikely to be secondary to seizure activity as witnessed by nursing, no loc, no post ictal state DVT prophylaxis - no heparin because of low platelets (Karen Bernardo ., JOSH) Supervising Note Dr. Suarez I performed a history and physical examination on the patient. I reviewed above note and agree with it. I discussed plan with APC and patient. During my face to face encounter with the patient, I answered all of the patient's questions. Will obtain further imaging as patient is complaining of left abd. pain. CT angio will be ordered. will rule out mesenteric ischemia, or infectious process. (Marvel Suarez M.D.)
[2017-08-06] MEDS ORDERED: ACETAMINOPHEN 325 MG TAB PO STA (16:18)
[2017-08-06] MEDS ORDERED: OPTIRAY 320 IV PRN (17:30)
--- NOTE | 2017-08-06 17:34 | DIAGNOSTIC IMAGING REPORT ---
CT ANGIO ABD/PELVIS WITH CONTRAST CT DOSE: 1682.74 mGy.cm CLINICAL HISTORY: Abdominal pain possible ischemic bowel. TECHNIQUE: CT angiography of the abdomen and pelvis was performed in a dynamic helical fashion during intravenous administration of 114 cc of Optiray 320. MIP imaging was performed. A dose lowering technique was utilized adhering to the principles of ALARA. COMPARISON STUDY: Noncontrast CT scan dated 07/23/2017 FINDINGS: Visualized portions of the lung bases are unremarkable. The liver has a cirrhotic morphology. No focal hepatic masses are visualized on this arterial phase study. There is evidence of portal hypertension with prominent upper abdominal varices and splenomegaly. The portal veins appears small and patency cannot be assessed on this arterial phase study. The gallbladder surgically absent. The spleen is enlarged measuring 17 cm. No pancreatic masses are visualized. The pancreas appears somewhat atrophic. No adrenal masses are visualized. No renal masses are visualized this arterial phase study. There are no transition zones to indicate bowel obstruction. There are no findings to indicate acute appendicitis. There are no findings to indicate acute diverticulitis. There are multiple fluid-filled bowel loops. This is a nonspecific finding which could indicate a diarrheal state or mild enteritis. There is no significant bowel wall thickening. There is a small fat-containing umbilical hernia. The uterus is surgically absent. There is an indwelling Cuello catheter present. There is no evidence of aortic or iliac artery stenosis. There is no evidence of superior mesenteric celiac or renal artery stenosis. The inferior mesenteric artery is patent. Postsurgical changes involve the right hip. There are endplate erosive changes at the L4-5 level. IMPRESSION: 1. Cirrhotic morphology of the liver with evidence of portal hypertension, splenomegaly, and prominent upper abdominal varices. 2. No evidence of superior mesenteric or celiac artery stenosis. 3. Fluid-filled bowel loops, without evidence of bowel wall thickening. No evidence of bowel obstruction. No evidence of free air. Electronically signed by: Bran Hernandez M.D. 08/06/2017 5:32 PM Dictated Date/Time: 08/06/2017 5:22 PM
[2017-08-06] MEDS: MIRTAZAPINE TAB 15 MG TAB PO SCH (21:05)
[2017-08-06] MEDS: TOPIRAMATE 25 MG TAB PO SCH (21:06)
[2017-08-06] MEDS: INSULIN GLARGINE SOLOSTAR 100 UNITS/ML 3 ML PEN SC SCH (21:49)
[2017-08-07] MEDS: ONDANSETRON INJ 8 MG in DEXTROSE 5% 50ML 50 ML IV PRN ×2 (00:54→08:43)
[2017-08-07] MEDS: SODIUM CHLORIDE 0.9% 1000ML 1,000 ML IV SCH (00:54)
[2017-08-07] MEDS: LEVOTHYROXINE 75 MCG TAB PO SCH (05:40)
[2017-08-07] MEDS: OXYCODONE HCL IR 5 MG TAB (IMMEDIATE RELEASE) PO PRN (05:41)
[2017-08-07 06:08] LABS: HEMOGLOBIN 9.2 g/dL (12.0-16.0); MEAN CELL VOLUME 95.8 fL (80-100); MEAN CORPUSCULAR HEMOGLOBIN 35.2 pg (25-34); MEAN CORPUSCULAR HGB CONC 36.8 g/dl (32-36); RED CELL DISTRIBUTION WIDTH CV 14.1 % (11.5-14.5); RED CELL DISTRIBUTION WIDTH SD 49.7 fL (36.4-46.3); WHITE BLOOD COUNT 2.33 K/uL (4.8-10.8)
[2017-08-07 06:10] LABS: MEAN PLATELET VOLUME 9.2 fL (7.4-10.4); PLATELET COUNT 80 K/uL (130-400)
[2017-08-07] MEDS: TOBRAMYCIN/DEXAMETHASONE OPH SUSP 2.5 ML BTL OTR SCH ×2 (07:45→11:32)
[2017-08-07] MEDS: LACTULOSE SYRUP 10 GM/15 ML BTL 473 ML PO SCH ×3 (08:00→11:42)
[2017-08-07 08:12] VITALS: BP 141/79; PULSE 81; TEMP 36.3; O2SAT 100
[2017-08-07 08:38] VITALS: BP 132/77; PULSE 88
[2017-08-07] MEDS: DULOXETINE HCL 60 MG CAP PO SCH (08:39)
[2017-08-07] MEDS: OXCARBAZEPINE 300 MG TAB PO SCH (08:40)
[2017-08-07] MEDS: LEVETIRACETAM 1000 MG PO SCH (08:40)
[2017-08-07] MEDS: CeleBREX 100 MG CAP PO SCH (08:41)
[2017-08-07] MEDS: MAGNESIUM OXIDE 400 MG TAB PO SCH (08:42)
[2017-08-07] MEDS: RIFAXIMIN TAB 550 MG TAB PO SCH (08:42)
[2017-08-07] MEDS: TOPIRAMATE 100 MG TAB PO SCH (08:42)
[2017-08-07] MEDS: SPIRONOLACTONE 25 MG TAB PO SCH (08:43)
[2017-08-07] MEDS: INSULIN GLARGINE SOLOSTAR 100 UNITS/ML 3 ML PEN SC SCH (08:52)
[2017-08-07] MEDS: INSULIN HUMAN LISPRO (humaLOG) 100 UNITS/ML VIAL SC SCH ×2 (08:53→13:04)
[2017-08-07] MEDS ORDERED: NURSING VERBAL MED ORDER ONE (11:45)
[2017-08-07] MEDS ORDERED: VLTG EXT (14:10)
--- NOTE | 2017-08-07 14:15 | Discharge Instructions ---
Discharge Instructions Date of Service August 07, 2017. Admission Reason for Admission: Diabetic Gastroparesis Discharge Discharge Diagnosis / Problem: diabetic gastroparesis Discharge Goals Goal(s): Decrease discomfort, Improve function Activity Recommendations Activity Limitations: resume your previous activity . Instructions / Follow-Up Instructions / Follow-Up Recommend resuming meds. Resume zoloft tomorrow as you do not want to continue cymbalta. Since you prefer advil, i will stop the celebrex. Recommend taking oxycodone max once or twice a day if you have them at home. This medicine could worsen your symptoms. Will schedule a PCP and an appointment with [facility]. Current Hospital Diet Patient's current hospital diet: Diabetes Type 2 Diet, Full Liquid Diet Discharge Diet Recommended Diet: Full Liquid Diet, Diabetes Type 2 Diet Procedures Procedures Performed: EGD w/Biopsies Pending Studies Studies pending at discharge: no Laboratory Results Hemoglobin A1c Test 05/14/17 07:16 Range/Units Estimated Average Glucose 94 mg/dl Hemoglobin A1c 4.9 4.5-5.6 % Medical Emergencies . Who to Call and When: Medical Emergencies: If at any time you feel your situation is an emergency, please call 911 immediately. . Non-Emergent Contact Non-Emergency issues call your: Primary Care Provider Call Non-Emergent contact if: you have any medication questions . . "Provider Documentation" section prepared by Marvel Suarez. .
[2017-08-07 14:43] VITALS: BP 132/77; PULSE 88; TEMP 36.3; O2SAT 100
--- NOTE | 2017-08-07 22:07 | Discharge Summary ---
Discharge Summary Date of Service August 07, 2017. Discharge Summary Admission Date: August 04, 2017 at 12:00 Discharge Date: August 07, 2017 Discharge Disposition: Home Principal Diagnosis: Acute on Chronic Hepatic encephalopathy secondary to inability to take lact Immunizations: Have You Had Influenza Vaccine: Yes Influenza Vaccine Date: Feb 02, 2013 History of Tetanus Vaccine?: utd Tetanus Immunization Date: Jun 11, 2008 History of Pneumococcal: SEE LAST PACKET Pneumococcal Date: Nov 13, 2008 History of Hepatitis B Vaccine: Unknown Hepatitis Immunization Date: Jan 12, 1996 Medication Reconciliation New Medications: Diclofenac Sod (Voltaren) 100 Appln/100 Gm Gel 1 APPLN EXT BID PRN for Pain for 15 Days, #1 TUBE 0 Refills Continued Medications: Ascorbic Acid (Vitamin C) 1,000 Mg Tab 1000 MG PO QAM Cholecalciferol (Vitamin D) 1,000 Unit Tab 5000 UNITS PO QAM Cranberry (Vaccinium Macrocarp (Cranberry Extract) 200 Mg Cap 1 CAP PO BID Hydroxyzine Pamoate (Vistaril) 50 Mg Cap 50 MG PO HS Ibuprofen (Advil) 200 Mg Tab 400 MG PO UD Insulin Glargine (Lantus Solostar) 100 Unit/Ml Inj 10 UNITS SC BID Insulin Lispro (Human) (Humalog Kwikpen) 100 Unit/Ml Inj 20 UNITS SC AC PLUS SLIDING SCALE Lactulose (Chronulac) 10 Gm/15 Ml Syrp 15 ML PO QAM titrate to maintain 2-3 bowel mvmts daily Levetiracetam (Levetiracetam) 1,000 Mg Tab 2000 MG PO BID Levothyroxine Sodium (Levothyroxine Sodium) 75 Mcg Tab 75 MCG PO QAM Magnesium Oxide (Mg Supplement (Magnesium) 500 Mg Tab 500 MG PO BID Mirtazapine (Mirtazapine) 15 Mg Tab 45 MG PO HS Multivitamin (Multivitamin) Tab 1 TAB PO QAM Omeprazole (Prilosec) 20 Mg Capcr 20 MG PO QAM Ondansetron Odt (Zofran Odt) 8 Mg Soltab 8 MG SL Q6H PRN for Nausea, TAB Oxcarbazepine (Trileptal) 300 Mg Tab 300 MG PO BID Oxycodone Ir (Roxicodone Ir) 5 Mg Tab 5 MG PO Q12H PRN for Pain, TAB Probiotic Product (Probiotic) 1 Cap Cap 1 CAP PO QAM Promethazine HCl (Promethazine HCl) 25 Mg Tab 25 MG PO UD Rifaximin (Xifaxan) 550 Mg Tab 550 MG PO BID Rizatriptan Benzoate (Maxalt) 10 Mg Tab 10 MG PO DIRECTED PRN for Migraine, TAB Sertraline (Zoloft) 50 Mg Tab 100 MG PO QAM Spironolactone (Aldactone) 25 Mg Tab 50 MG PO QAM Topiramate (Topamax ) 25 Mg Tab 75 MG PO QPM Topiramate (Topamax) 100 Mg Tab 100 MG PO QAM, TAB Vitamin A (Vitamin A) 8,000 Unit Cap 1 CAP PO QAM Zinc Gluconate (Zinc) 50 Mg Tab 50 MG PO BID [Tobradex Otic] () 5 DROPS OTR TID Discharge Exam ROS Constitutional: no chills, aches, sweats or fever Respiratory: no sob,cough, sputum, or wheezing Cardiac: no chest pain, palpitations, edema, orthopnea or lightheadedness GI: see HPI : no dysuria or hesitancy Extremities: no joint pain or weakness Skin: no rash All other systems reviewed and negative Physical Exam Notes: General: no distress Eyes: normal inspection, PERLL Respiratory: chest non tender, clear to auscultation, normal breath sounds, no respiratory distress, no accessory muscle use Cardiac: regular rate and rhythm, no rub or gallop, no murmur, no edema, no jvd GI/: active bowel sounds, left lower quadrant tenderness, soft, non distended Extremities: normal range of motion, normal strength, non tender Neuro/Psych: alert and oriented x 3, normal mood and affect Skin: normal color, dry Hospital Course 51 yo F with history of liver cirrhosis admitted on July 26, 2017 because of severe nausea with failed outpatient Compazine, Phenergan, Zofran, and she cannot take Reglan due to her seizure disorder. Also had early hepatic encephalopathy PMHx of liver cirrhosis secondary to seizure med hepatotoxicity, DMII on insulin , hypothyroidism, seizure disorder, migraines, asthma, parkinsonism, bipolar disorder, depression, chronic pancytopenia, and GERD, traumatic R femoral fracture with intertrochanteric vijaya placed Acute on Chronic Hepatic encephalopathy secondary to inability to take lactulose , cirrhosis - resolved - ammonia level decreased from 140 to 75, ammonia 75 again today - Continue rifaximin, lactulose - increased spironolactone to 25 mg daily from 12.5 mg, patient takes 50 mg at home New onset confusion - resolved - 08/04 patient was complaining that she felt confused and was not answering her orientation questions appropriately - I was unconvinced of the authenticity of her disorientation especially as it was inconsistent with the rest of her behavior and she had no neural deficits. In an attempt to cut back any medications that would interfere with her mentation, rapid taper of her oxycodone per psych rec. She has also had her Phenergan discontinued. An attempt to use Marinol for nausea was made 08/03 which resulted in confusion and so was discontinued as well - consulted psych Severe nausea/dry heaves -likely from excerbation of diabetic gastroparesis - Reconsult GI - EGD was normal, patient's nausea persists - discontinue IV phenergan - see above - Continue Protonix IV twice daily - stool cultures negative - BC ngtd - Xray 07/30 did show a mild non obstructing ileus - US abd was unable to visualize mesenteric vasculature, no hernia or fluid collection - patient does not have leukocytosis or fever, diarrhea improving CT angio negative for ischemia Back pain secondary to fall, chronic back pain - taper oxycodone, - lidocaine patches, celebrex Hypomagnesemia - resolved 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 type 2 on insulin, hypoglycemia - ss, bsgs ac & hs - decrease lantus from 20 bid to 10 units bid as patient continues to have morning hypoglycemia - random cortisol was normal Hypothyroidism - continue Synthroid dosing 75 mcg Seizure disorder, - continue home keppra dosing - fall unlikely to be secondary to seizure activity as witnessed by nursing, no loc, no post ictal state DVT prophylaxis - no heparin because of low platelets Given as patient's acute issues have resolved, will discharge patient and have her f/u with PCP and GI for chronic issues. Total Time Spent: Greater than 30 minutes This includes examination of the patient, discharge planning, medication reconciliation, and communication with other providers. Discharge Instructions Please refer to the electronic Patient Visit Report (Discharge Instructions) for additional information. Follow-Up as noted in discharge instructions
[2017-08-08 02:34] LABS: KEPPRA (LEVETIRACETAM) *15142X 61.1 mcg/mL
--- NOTE | 2017-08-12 06:17 | EDITING REQUIRED CODING QUERY ---
CODING QUERY To promote full compliance with coding requirements relating to patient care, provider participation is requested in all cases of pharmacists uncertainty. Please assist us with the question(s) below: Coding Question(s): Patient admitted with nausea and vomiting with underlying cirrhosis due to antiseizure medications. Complex patient with seizure disorder, wax/waning hepatic encephalopathy. Unable to take lactulose. Amonia level 142 in ED( higher than normal). Please document , if known or suspected, the etiology of the patient's nausea/vomiting- the diagnosis responsible for patient's admission. Thanks for your help! Ben Telles, [facility] Physician's Response(s): I documented the following on discharge summary. Severe nausea/dry heaves -likely from excerbation of diabetic gastroparesis - Reconsult GI - EGD was normal, patient's nausea persists - discontinue IV phenergan - see above - Continue Protonix IV twice daily - stool cultures negative - BC ngtd - Xray / did show a mild non obstructing ileus - US abd was unable to visualize mesenteric vasculature, no hernia or fluid collection - patient does not have leukocytosis or fever, diarrhea improving CT angio negative for ischemia Principal Diagnosis: "_that condition established after study, to be chiefly responsible for occasioning the admission of the patient to the hospital for care." Co-Existing Principal Diagnosis: "_when two or more diagnoses equally meet the criteria for principal diagnosis as determined by the circumstances of admission, diagnostic work up, and/or therapy provided, and the Alphabetic Index, Tabular List, or another coding guideline does not provide sequencing direction, any one of the diagnoses may be sequenced first." "When the physician has documented what appears to be a current diagnosis in the body of the record, but has not included the diagnosis in the final diagnostic statement, the physician should be asked whether the diagnosis should be added." (Source Coding [facility] 2 QTR90. p3-4)
[2017-08-15] MEDS ORDERED: RIZA10TA18 PO (12:08)
[2017-08-15] MEDS ORDERED: LACT10SO17 PO (12:08)
== END 2017-08-07 15:04 | disposition home health service (06) | DRG 73 ==
LOC: C.EDB 14:15 → C.2T 18:38 → ENRESERV 19:05 → C.4E 07-27 15:05 → OBSVTOIN 08-04 12:00 → C.MS4W 08-06 08:34
PROVIDERS: ADMIT Internal Medicine; ATTEND Internal Medicine Sports Medicine
PROC: 0DB98ZX Excision of Duodenum, Via Natural or Artificial Opening Endoscopic, Diagnostic (ICD-10-PCS; principal; 2017-07-29 11:23)
PROC: 0DB68ZX Excision of Stomach, Via Natural or Artificial Opening Endoscopic, Diagnostic (ICD-10-PCS; principal; 2017-07-29 11:23)
DX: E11.43 Type 2 diabetes mellitus with diabetic autonomic (poly)neuropathy (principal); K72.00 Acute and subacute hepatic failure without coma; K76.6 Portal hypertension; K74.69 Other cirrhosis of liver; F31.9 Bipolar disorder, unspecified; K72.10 Chronic hepatic failure without coma; G40.909 Epilepsy, unspecified, not intractable, without status epilepticus; G20 Parkinson's disease; Z79.4 Long term (current) use of insulin; D46.9 Myelodysplastic syndrome, unspecified; K76.0 Fatty (change of) liver, not elsewhere classified; R11.2 Nausea with vomiting, unspecified; J45.909 Unspecified asthma, uncomplicated; F60.3 Borderline personality disorder; E03.9 Hypothyroidism, unspecified; Z91.19 Patient's noncompliance with other medical treatment and regimen; E86.0 Dehydration; T42.0X5A Adverse effect of hydantoin derivatives, initial encounter; K21.9 Gastro-esophageal reflux disease without esophagitis; Z88.1 Allergy status to other antibiotic agents; Z88.8 Allergy status to other drugs, medicaments and biological substances; F11.10 Opioid abuse, uncomplicated; M54.9 Dorsalgia, unspecified; E83.42 Hypomagnesemia; W19.XXXA Unspecified fall, initial encounter; Y92.019 Unspecified place in single-family (private) house as the place of occurrence of the external cause

== ENCOUNTER 2017-08-10 19:04 | Emergency (ER) | payer BC, OTHER ==
[~2017-08-10] VITALS: Ht 165.1 cm; Wt 96.8 kg
[~2017-08-10 19:04] MED LIST changes: -PROC10TA PO; +PROM25TA16 PO; +TOPI100T45 PO; -TOPI50TA16 PO; +VLTG EXT
[2017-08-10 19:10] VITALS: TEMP 36.8; Ht 165.1 cm; Wt 96.8 kg
--- NOTE | 2017-08-10 19:23 | EMERGENCY ROOM VISIT NOTE ---
History Report prepared by Broderick: Erick De Los Santos Under the Supervision of: Dr. Pino Gonzales M.D. First contact with patient: 19:13 Chief Complaint: BACK PAIN Stated Complaint: CHRONIC LOW BACK PAIN History of Present Illness The patient is a 51 year old female who presents to the Emergency Room with complaints of constant lower back pain that began recently. Patient states that the pain is chronic. Patient adds that she has chills and diarrhea. Patient states that she lives at home. Patient was in the hospital for a week recently and states that she was at home for "awhile" after being discharged. Patient states that she ran out of her pain medications. She states that she did not talk to the doctor that prescribes her medications about it. She states she is supposed to see someone on Friday. Patient adds that she is confused and wants her ammonia levels checked. Patient denies leg swelling, rashes, abdominal pain, and fevers. Source of History: patient Onset: Recent Position: back (lower) Timing: constant Modifying Factors (Relieving): other (None) Associated Symptoms: + chills, + diarrhea, No fevers, No abdominal pain, No rash Note: Patient denies leg swelling. Review of Systems See HPI for pertinent positives & negatives. A total of 10 systems reviewed and were otherwise negative. Past Medical & Surgical Medical Problems: (1) Asthma (2) Bipol I, Rec Epis (Or Current) Depressed, Unspecified (3) Borderline personality disorder (4) Cirrhosis (5) Closed right hip fracture (6) Depression (7) Diab Ashley Wo Comp Type Ii Or Nos/Not Uncontrolled (8) Diabetic gastroparesis (9) Heart murmur (10) History of hepatic encephalopathy (11) Hyponatremia (12) Hypothyroidism (13) Major depressive disorder with psychotic features (14) Migraines (15) Murmur (16) Myelodysplastic syndrome (17) Opiate abuse, continuous (18) Pancytopenia (19) Peptic ulcer disease (20) Portal Hypertension (21) Seizure disorder (22) Suicidal ideation (23) UTI (urinary tract infection) Surgical Problems: (1) H/O nasal septoplasty (2) History of appendectomy (3) History of cholecystectomy (4) History of hysterectomy (5) History of kyphoplasty (6) History of tonsillectomy (7) s/p spinal stimulator placement Family History Depression Hypertension Social History Smoking Status: Never Smoker Alcohol Use: none Drug Use: none Marital Status: Housing Status: lives with significant other Occupation Status: disabled Current/Historical Medications Scheduled Ascorbic Acid (Vitamin C), 1,000 MG PO QAM Cholecalciferol (Vitamin D), 5,000 UNITS PO QAM Cranberry (Vaccinium Macrocarp (Cranberry Extract), 1 CAP PO BID Hydroxyzine Pamoate (Vistaril), 50 MG PO HS Ibuprofen (Advil), 400 MG PO UD Insulin Glargine (Lantus Solostar), 10 UNITS SC BID Insulin Lispro (Human) (Humalog Kwikpen), 20 UNITS SC AC Lactulose (Chronulac), 15 ML PO QAM Levetiracetam (Levetiracetam), 2,000 MG PO BID Levothyroxine Sodium (Levothyroxine Sodium), 75 MCG PO QAM Magnesium Oxide (Mg Supplement (Magnesium), 500 MG PO BID Mirtazapine (Mirtazapine), 45 MG PO HS Multivitamin (Multivitamin), 1 TAB PO QAM Omeprazole (Prilosec), 20 MG PO QAM Oxcarbazepine (Trileptal), 300 MG PO BID Probiotic Product (Probiotic), 1 CAP PO QAM Promethazine HCl (Promethazine HCl), 25 MG PO UD Rifaximin (Xifaxan), 550 MG PO BID Sertraline (Zoloft), 100 MG PO QAM Spironolactone (Aldactone), 50 MG PO QAM Topiramate (Topamax ), 75 MG PO QPM Topiramate (Topamax), 100 MG PO QAM Vitamin A (Vitamin A), 1 CAP PO QAM Zinc Gluconate (Zinc), 50 MG PO BID [Tobradex Otic], 5 DROPS OTR TID Scheduled PRN Diclofenac Sod (Voltaren), 1 APPLN EXT BID PRN for Pain Ondansetron Odt (Zofran Odt), 8 MG SL Q6H PRN for Nausea Oxycodone Ir (Roxicodone Ir), 5 MG PO Q12H PRN for Pain Rizatriptan Benzoate (Maxalt), 10 MG PO DIRECTED PRN for Migraine Allergies Coded Allergies: Amoxicillin (Verified Allergy, Intermediate, HIVES; Has tolerated cephalosporins (Rocephin, Ceftin,Keflex, 08/11/17) Azithromycin (Verified Allergy, Intermediate, HIVES, 08/11/17) Baclofen (Verified Allergy, Intermediate, RASH, 08/11/17) Butalbital (Verified Allergy, Intermediate, HIVES, 08/11/17) Clarithromycin (Verified Allergy, Intermediate, RASH, 08/11/17) Dicyclomine (Verified Allergy, Intermediate, HIVES, 08/11/17) HIVES Penicillins (Verified Allergy, Intermediate, RASH; has tolerated cephs ( Rocephin, Keflex, Ceftin), 08/11/17) PT STATES SHE GETS WELTS FROM CIPRO,LEVAQUIN ALLERGY PER DR ROBLES Tetracyclines (Verified Allergy, Intermediate, DOXYCYCLINE-HIVES, 08/11/17) Sulindac (Verified Allergy, Mild, ALLERGY LISTED "CLONDORAL"--HIVES, ) Adhesives (Verified Allergy, Unknown, RASH, DUODERM=RED,ITCHY, 08/11/17) PLASTIC TAPE IS OK!!! DUODERM=RED,ITCHY Clavulanic Acid (Unverified Allergy, Unknown, diahrea , 08/11/17) Metronidazole (Verified Allergy, Unknown, SEIZURE, 08/11/17) Tramadol (Verified Allergy, Unknown, SEIZURES, 08/11/17) Metoclopramide (Verified Adverse Reaction, Severe, SEIZURES, 08/11/17) Insulin Aspart (Verified Adverse Reaction, Intermediate, NO ALLERGY!!!!!! , 08/11/17) PT SAYS HER INSURANCE (EVEN WHILE HOSPITALIZED) WILL NOT PAY FOR NOVOLOG!! ONLY HUMALOG!!! Blueberry (Verified Adverse Reaction, Mild, STOMACH PAIN, 08/11/17) Furosemide (Verified Adverse Reaction, Unknown, HIVES, 08/11/17) Physical Exam Vital Signs Date Time Temp Pulse Resp B/P (MAP) Pulse Ox O2 Delivery O2 Flow Rate FiO2 08/10/17 19:43 86 22 142/85 97 Room Air 08/10/17 19:34 85 23 08/10/17 19:10 36.8 89 18 154/75 99 Room Air 08/10/17 19:06 154/75 Physical Exam GENERAL: Patient is well appearing and in no acute distress. She is at her normal baseline EYES: No scleral icterus, unremarkable pupils. ENT: Mucous membranes moist, no nasal congestion. NECK: No masses appreciated, no meningismus, trachea is midline. RESPIRATORY: No dyspnea. Clear to auscultation and equal bilaterally. No wheeze , no rhonchi. CARDIOVASCULAR: Regular rate and rhythm. No murmurs, rubs, gallops appreciated. GASTROINTESTINAL: Abdomen soft, nontender, no peritonitis. Bowel sounds positive. No masses appreciated. BACK: No midline tenderness, no CVA tenderness EXTREMITIES: Normal motion all extremities, no cyanosis, no edema. NEUROLOGIC: Alert and oriented, no acute motor or sensory deficits, no focal weakness, cranial nerves grossly intact. SKIN: No rash, no jaundice, no diaphoresis. Medical Decision & Procedures ED Course 1901: The patient was evaluated in room C5. A complete history and physical exam was performed. 1937: Reevaluated the patient. I informed that she was not going to get narcotics in the ER. She admits that she has a doctor that she can get her medications from. Discussed results and discharge instructions. She verbalized understanding and agreement. The patient is ready for discharge. Medical Decision 51 yr old female arrives to ED requesting Oxycodone for her chronic back pain. She is very well known to me. She does not appear in any distress, her HR is wnl, she is not diaphoretic, she has no evidnee of narcotic withdrawal by examinations. Her review of chart reveals extensive narcotic prescriptions and many notes (including recent hospitalization) noting concerns that narcotics are adding to her other medical issues (persistent nausea, AMS, etc). I do not feel it is in the best interest of patient to give in to her demands for narcotics. She refuses other medications. She admits she has not contacted her PCP regarding being out of pain meds for several days. PDMP notes monthly regular Oxy rx from same person and I advised she continue discussing her chronic pain with them. She exhibits no evidence of other pathology besides her chronic pain causing her this and she states this is the same pain she always has. She is furthermore demanding an ammonia level be drawn, but given she is awake, alert, oriented and is able to request labs, I see no reason to suspect she is currently hepatic encephalopathy. I do not see other evidence she requires further work-up at this time, especially given her recent admission for over a week with extensive testing at that time. She was advised that if she continues to be medically non-compliant she will likely have further joint terminal attack controller medical comorbidities. She was discharged to home. arrived and took her home prior to me being able to talk with him. [place] Drug Monitoring Program Search Results: patient reviewed within database, see additional documentation Drug Monitoring Findings: Extensive narcotic Rx history Head Trauma GCS Score: 15 Medication Reconcilliation Current Medication List: was personally reviewed by me Blood Pressure Screening Patient's blood pressure: Elevated blood pressure Blood pressure disposition: Referred to PCP Impression Primary Impression: Chronic low back pain Additional Impression: Request for narcotic pain medication Scribe Attestation The scribe's documentation has been prepared under my direction and personally reviewed by me in its entirety. I confirm that the note above accurately reflects all work, treatment, procedures, and medical decision making performed by me. Departure Information Dispostion Home / Self-Care Referrals Olena Little DO (PCP) Patient Instructions My [facility] Additional Instructions We are unable to refill your narcotic prescriptions. This must be managed by your primary care provider. Return if change in your normal pain, increased weakness, loss of bowel or bladder control or other concerning symptoms. Call your Doctor during normal business hours to make appointments to discuss you chronic pain management. Problem Qualifiers
[2017-08-10 19:43] VITALS: BP 142/85; PULSE 86; O2SAT 97
== END 2017-08-10 19:47 | disposition home or self-care (01) ==
LOC: EDBD 19:04 → C.EDC 19:05
DX: M54.5 Low back pain (principal); G89.29 Other chronic pain; J45.909 Unspecified asthma, uncomplicated; K74.60 Unspecified cirrhosis of liver; E11.43 Type 2 diabetes mellitus with diabetic autonomic (poly)neuropathy; F32.9 Major depressive disorder, single episode, unspecified; G40.909 Epilepsy, unspecified, not intractable, without status epilepticus; E03.9 Hypothyroidism, unspecified; Z87.440 Personal history of urinary (tract) infections; Z87.11 Personal history of peptic ulcer disease; Z90.89 Acquired absence of other organs; Z90.49 Acquired absence of other specified parts of digestive tract; Z90.710 Acquired absence of both cervix and uterus; Z98.890 Other specified postprocedural states; Z81.8 Family history of other mental and behavioral disorders; Z82.49 Family history of ischemic heart disease and other diseases of the circulatory system; Z79.4 Long term (current) use of insulin; Z79.899 Other long term (current) drug therapy; Z88.0 Allergy status to penicillin; Z88.1 Allergy status to other antibiotic agents; Z88.8 Allergy status to other drugs, medicaments and biological substances; Z91.09 Other allergy status, other than to drugs and biological substances; Z91.018 Allergy to other foods; Z88.6 Allergy status to analgesic agent

== ENCOUNTER 2017-08-11 13:35 | Emergency (ER) | payer BC, OTHER ==
[~2017-08-11] VITALS: Ht 165.1 cm; Wt 92.0 kg
[2017-08-11 13:50] VITALS: TEMP 37.2; Ht 165.1 cm; Wt 92.0 kg
[2017-08-11] MEDS ORDERED: PROMETHAZINE HCL INJ 12.5 MG in SODIUM CHLORIDE 0.9% 50ML 50 ML IV STA (15:04)
[2017-08-11 15:43] LABS: HEMATOCRIT 30.2 % (37-47); HEMOGLOBIN 11.1 g/dL (12.0-16.0); MEAN CELL VOLUME 96.2 fL (80-100); MEAN CORPUSCULAR HEMOGLOBIN 35.4 pg (25-34); MEAN CORPUSCULAR HGB CONC 36.8 g/dl (32-36); RED CELL DISTRIBUTION WIDTH CV 13.6 % (11.5-14.5); WHITE BLOOD COUNT 4.04 K/uL (4.8-10.8)
[2017-08-11 15:51] LABS: BASO % 0.7 %; BASO ABS # 0.03 K/uL (0-0.2); EOS % 6.9 %; IG# 0.01 K/uL (0.00-0.02); LYMPH % 26.1 %; LYMPH ABS # 1.14 K/uL (1.2-3.4); MEAN PLATELET VOLUME 9.2 fL (7.4-10.4); MONO ABS # 0.35 K/uL (0.11-0.59); NEUT % 58.1 %; NEUT ABS # 2.54 K/uL (1.4-6.5); PLATELET COUNT 100 K/uL (130-400)
[2017-08-11 16:09] LABS: ALBUMIN 3.2 gm/dl (3.4-5.0); CALCIUM 8.3 mg/dl (8.5-10.1); CREATININE 0.52 mg/dl (0.60-1.20)
[2017-08-11 16:12] LABS: TOTAL PROTEIN 6.6 gm/dl (6.4-8.2)
[2017-08-11] MEDS ORDERED: SODIUM CHLORIDE 0.9% 500ML 500 ML IV STA (16:37)
[2017-08-11 16:51] VITALS: PULSE 88; O2SAT 99
[2017-08-11 17:53] VITALS: BP 102/68
--- NOTE | 2017-08-11 19:29 | EMERGENCY ROOM VISIT NOTE ---
History Report prepared by Broderick: Mc Clark Under the Supervision of: Dr. Erick Barone M.D. First contact with patient: 14:51 Chief Complaint: NAUSEA Stated Complaint: STRONG PERSISTANT NAUSEA Nursing Triage Summary: Patient states she has no appetite, nausea for the past week. History of Present Illness The patient is a 51 year old female who presents to the Emergency Room with complaints of constant nausea beginning today. The patient states that she was admitted two weeks ago for nausea and abdominal pain. She notes that her current symptoms are worse than when she was admitted. She denies having any diarrhea at this time. Per , the patient was eating and drinking normally for the last two days. He notes that the patient was also having diarrhea for the past two days. He reports that the patient had five normal bowel movements today and was urinating frequently. The patient states that she is currently experiencing a loss of appetite and has not been able to drink fluids. She also notes that she has abdominal pain and chills. She denies any vomiting. She reports that she is taking Zofran and Phenergan for her nausea. The patient requests that she have her ammonia levels checked. Source of History: patient, spouse/significant other Onset: today Position: abdomen Quality: other (nausea) Timing: constant Associated Symptoms: + chills, + abdominal pain, + diarrhea, No vomiting Note: Per , the patient had five bowel movements and frequent urination this morning. The patient complains of a loss of appetite and the inability to drink fluids. Review of Systems See HPI for pertinent positives & negatives. A total of 10 systems reviewed and were otherwise negative. Past Medical & Surgical Medical Problems: (1) Asthma (2) Bipol I, Rec Epis (Or Current) Depressed, Unspecified (3) Borderline personality disorder (4) Cirrhosis (5) Closed right hip fracture (6) Depression (7) Diab Ashley Wo Comp Type Ii Or Nos/Not Uncontrolled (8) Diabetic gastroparesis (9) Heart murmur (10) History of hepatic encephalopathy (11) Hyponatremia (12) Hypothyroidism (13) Major depressive disorder with psychotic features (14) Migraines (15) Murmur (16) Myelodysplastic syndrome (17) Opiate abuse, continuous (18) Pancytopenia (19) Peptic ulcer disease (20) Portal Hypertension (21) Seizure disorder (22) Suicidal ideation (23) UTI (urinary tract infection) Surgical Problems: (1) H/O nasal septoplasty (2) History of appendectomy (3) History of cholecystectomy (4) History of hysterectomy (5) History of kyphoplasty (6) History of tonsillectomy (7) s/p spinal stimulator placement Family History Depression Hypertension Social History Smoking Status: Never Smoker Alcohol Use: none Drug Use: none Marital Status: Housing Status: lives with family Occupation Status: disabled Current/Historical Medications Scheduled Ascorbic Acid (Vitamin C), 1,000 MG PO QAM Cholecalciferol (Vitamin D), 5,000 UNITS PO QAM Cranberry (Vaccinium Macrocarp (Cranberry Extract), 1 CAP PO BID Hydroxyzine Pamoate (Vistaril), 50 MG PO HS Ibuprofen (Advil), 400 MG PO UD Insulin Glargine (Lantus Solostar), 10 UNITS SC BID Insulin Lispro (Human) (Humalog Kwikpen), 20 UNITS SC AC Lactulose (Chronulac), 15 ML PO QAM Levetiracetam (Levetiracetam), 2,000 MG PO BID Levothyroxine Sodium (Levothyroxine Sodium), 75 MCG PO QAM Magnesium Oxide (Mg Supplement (Magnesium), 500 MG PO BID Mirtazapine (Mirtazapine), 45 MG PO HS Multivitamin (Multivitamin), 1 TAB PO QAM Omeprazole (Prilosec), 20 MG PO QAM Oxcarbazepine (Trileptal), 300 MG PO BID Probiotic Product (Probiotic), 1 CAP PO QAM Promethazine HCl (Promethazine HCl), 25 MG PO UD Rifaximin (Xifaxan), 550 MG PO BID Sertraline (Zoloft), 100 MG PO QAM Spironolactone (Aldactone), 50 MG PO QAM Topiramate (Topamax ), 75 MG PO QPM Topiramate (Topamax), 100 MG PO QAM Vitamin A (Vitamin A), 1 CAP PO QAM Zinc Gluconate (Zinc), 50 MG PO BID [Tobradex Otic], 5 DROPS OTR TID Scheduled PRN Diclofenac Sod (Voltaren), 1 APPLN EXT BID PRN for Pain Ondansetron Odt (Zofran Odt), 8 MG SL Q6H PRN for Nausea Oxycodone Ir (Roxicodone Ir), 5 MG PO Q12H PRN for Pain Rizatriptan Benzoate (Maxalt), 10 MG PO DIRECTED PRN for Migraine Allergies Coded Allergies: Amoxicillin (Verified Allergy, Intermediate, HIVES; Has tolerated cephalosporins (Rocephin, Ceftin,Keflex, 08/11/17) Azithromycin (Verified Allergy, Intermediate, HIVES, 08/11/17) Baclofen (Verified Allergy, Intermediate, RASH, 08/11/17) Butalbital (Verified Allergy, Intermediate, HIVES, 08/11/17) Clarithromycin (Verified Allergy, Intermediate, RASH, 08/11/17) Dicyclomine (Verified Allergy, Intermediate, HIVES, 08/11/17) HIVES Penicillins (Verified Allergy, Intermediate, RASH; has tolerated cephs ( Rocephin, Keflex, Ceftin), 08/11/17) PT STATES SHE GETS WELTS FROM CIPRO,LEVAQUIN ALLERGY PER DR ROBLES Tetracyclines (Verified Allergy, Intermediate, DOXYCYCLINE-HIVES, 08/11/17) Sulindac (Verified Allergy, Mild, ALLERGY LISTED "CLONDORAL"--HIVES, ) Adhesives (Verified Allergy, Unknown, RASH, DUODERM=RED,ITCHY, 08/11/17) PLASTIC TAPE IS OK!!! DUODERM=RED,ITCHY Clavulanic Acid (Unverified Allergy, Unknown, diahrea , 08/11/17) Metronidazole (Verified Allergy, Unknown, SEIZURE, 08/11/17) Tramadol (Verified Allergy, Unknown, SEIZURES, 08/11/17) Metoclopramide (Verified Adverse Reaction, Severe, SEIZURES, 08/11/17) Insulin Aspart (Verified Adverse Reaction, Intermediate, NO ALLERGY!!!!!! , 08/11/17) PT SAYS HER INSURANCE (EVEN WHILE HOSPITALIZED) WILL NOT PAY FOR NOVOLOG!! ONLY HUMALOG!!! Blueberry (Verified Adverse Reaction, Mild, STOMACH PAIN, 08/11/17) Furosemide (Verified Adverse Reaction, Unknown, HIVES, 08/11/17) Physical Exam Vital Signs Date Time Temp Pulse Resp B/P (MAP) Pulse Ox O2 Delivery O2 Flow Rate FiO2 08/11/17 17:53 102/68 08/11/17 16:51 88 20 119/45 99 Room Air 08/11/17 15:35 98 121/62 98 Room Air 08/11/17 13:50 37.2 100 16 192/108 98 Room Air Physical Exam Constitutional: Vital signs reviewed. Eyes: Pupils are equal round reactive to light. Conjunctiva are noninjected. ENT: Pharynx is clear without erythema or exudate. Mucous membranes are moist. Neck supple without meningeal signs. Respiratory: Clear to auscultation bilaterally. Breath sounds are equal bilaterally. Cardiovascular: Regular rate and rhythm. No rubs or gallops. GI: Soft, nondistended. Bowel sounds are present. Mild diffuse tenderness to palpation, no guarding, no tenderness when distracted. Musculoskeletal: No peripheral edema. No lower extremity tenderness. Integumentary: No cyanosis. Neurological: The patient is awake and alert. No focal deficits. Psychiatric: Normal affect. Medical Decision & Procedures Laboratory Results 08/11/17 15:28 Red Blood Count 3.14, Mean Corpuscular Volume 96.2, Mean Corpuscular Hemoglobin 35.4, Mean Corpuscular Hemoglobin Concent 36.8, Mean Platelet Volume 9.2, Neutrophils (%) (Auto) 58.1, Lymphocytes (%) (Auto) 26.1, Monocytes (%) (Auto) 8.0, Eosinophils (%) (Auto) 6.9, Basophils (%) (Auto) 0.7, Neutrophils # (Auto) 2.54, Lymphocytes # (Auto) 1.14, Monocytes # (Auto) 0.35, Eosinophils # (Auto) 0.30, Basophils # (Auto) 0.03 08/11/17 15:28 Test 08/11/17 15:28 White Blood Count 4.04 K/uL (4.8-10.8) Red Blood Count 3.14 M/uL (4.2-5.4) Hemoglobin 11.1 g/dL (12.0-16.0) Hematocrit 30.2 % (37-47) Mean Corpuscular Volume 96.2 fL (80-100) Mean Corpuscular Hemoglobin 35.4 pg (25-34) Mean Corpuscular Hemoglobin Concent 36.8 g/dl (32-36) Platelet Count 100 K/uL (130-400) Mean Platelet Volume 9.2 fL (7.4-10.4) Neutrophils (%) (Auto) 58.1 % Lymphocytes (%) (Auto) 26.1 % Monocytes (%) (Auto) 8.0 % Eosinophils (%) (Auto) 6.9 % Basophils (%) (Auto) 0.7 % Neutrophils # (Auto) 2.54 K/uL (1.4-6.5) Lymphocytes # (Auto) 1.14 K/uL (1.2-3.4) Monocytes # (Auto) 0.35 K/uL (0.11-0.59) Eosinophils # (Auto) 0.30 K/uL (0-0.5) Basophils # (Auto) 0.03 K/uL (0-0.2) RDW Standard Deviation 47.0 fL (36.4-46.3) RDW Coefficient of Variation 13.6 % (11.5-14.5) Immature Granulocyte % (Auto) 0.2 % Immature Granulocyte # (Auto) 0.01 K/uL (0.00-0.02) Anion Gap 9.0 mmol/L (3-11) Est Creatinine Clear Calc Drug Dose 143.5 ml/min Estimated GFR () 128.2 Estimated GFR (Non- 110.6 BUN/Creatinine Ratio 15.7 (10-20) Calcium Level 8.3 mg/dl (8.5-10.1) Total Bilirubin 1.2 mg/dl (0.2-1) Direct Bilirubin 0.5 mg/dl (0-0.2) Aspartate Amino Transf (AST/SGOT) 43 U/L (15-37) Alanine Aminotransferase (ALT/SGPT) 42 U/L (12-78) Alkaline Phosphatase 294 U/L (45-117) Ammonia 69.0 umol/L (11-32) Total Protein 6.6 gm/dl (6.4-8.2) Albumin 3.2 gm/dl (3.4-5.0) Lipase 88 U/L (73-393) Laboratory results as reviewed by me. Medications Administered Medications (Trade) Dose Ordered Sig/Danita Route Start Time Stop Time Status Last Admin Dose Admin Promethazine HCl 12.5 mg/Sodium Chloride 50.5 ml @ 204 mls/hr NOW STAT IV 08/11/17 15:04 08/11/17 15:18 DC 5/14/18 15:40 204 MLS/HR Sodium Chloride 500 ml @ 999 mls/hr Q31M STAT IV 08/11/17 16:37 08/11/17 17:07 DC 08/11/17 16:37 999 MLS/HR Heparin Sodium (Porcine) (Heparin 100 Unit/ml 5ml Flush) 5 ml STK-MED ONCE .ROUTE 08/11/17 17:21 08/11/17 17:22 DC 08/11/17 17:21 5 ML ED Course 1500: The patient was evaluated in room A12. A complete history and physical exam was performed. 1504: Promethazine HCl 12.5mg/Sodium Chloride 50.5ml @ 204mls/hr IV 1637: Sodium Chloride 500 ml @ 999 mls/hr IV 1642: Upon reevaluation, the patient appeared to have improvement of her symptoms. I discussed tonight's findings with her. She verbalized agreement of the treatment plan. The patient was discharged home. Medical Decision This is a 51-year-old female presents with dizziness and abdominal pain. Differential diagnosis includes dehydration, metabolic derangement, anemia, functional pain, somatoform disorder. I did perform a limited focused review of portions of the patient's old chart on the electronic medical record. The patient has was seen yesterday for chronic low back pain. She was referred to her doctor for pain medication. She was admitted on August 04, 2017, for abdominal pain. EGD was reported as normal. Her ammonia was 140 at the time of admission and 75 at the time of discharge. She was also admitted on July 26, 2017. At this time she was seen by GI, who felt as though her nausea was partly functional and related to her medication secondary to diabetes motility. She had a CT angiogram done of the abdomen/pelvis which did not show any obstruction. I did evaluate the patient as noted above. The patient is well-known to the emergency department. She was just admitted to the hospital recently for abdominal pain and nausea as described above. Her states that she has been eating normally over the weekend and had diarrhea but today has normal formed stools. She states she is nauseous but not vomiting. IV access was established. I did treat the patient with normal saline IV and Phenergan IV. I did order and review the patient's blood work as noted in the electronic medical record. She does have chronic pancytopenia but her numbers are improved. Her ammonia is mildly elevated for her. I did reassess patient. Initially she was fairly hypertensive but her blood pressure did come down to normal. I did discuss the test results with the patient and her . She was advised to follow-up with her doctor. She was discharged in good condition. Medication Reconcilliation Current Medication List: was personally reviewed by me Blood Pressure Screening Patient's blood pressure: Normal blood pressure Blood pressure disposition: Did not require urgent referral Impression Primary Impression: Dizziness Additional Impression: Pancytopenia Scribe Attestation The scribe's documentation has been prepared under my direct and personally reviewed by me in its entirety. I confirm that the note above accurately reflects all work, treatment, procedures, and medical decision making performed by me. Departure Information Dispostion Home / Self-Care Referrals Olena Little DO (PCP) Forms HOME CARE DOCUMENTATION FORM, IMPORTANT VISIT INFORMATION Patient Instructions My [facility] Additional Instructions You have been examined and treated today on an emergency basis only. This is not a substitute for, or an effort to provide, complete comprehensive medical care. It is impossible to recognize and treat all injuries or illnesses in a single emergency department visit. It is therefore important that you follow up closely with your physician. Call as soon as possible for an appointment. Return for worsening symptoms or if you develop fever, vomiting, or any other concerning symptoms. Problem Qualifiers
== END 2017-08-11 17:54 | disposition home or self-care (01) ==
LOC: C.EDB 13:36 → C.EDA 17:54
DX: R42 Dizziness and giddiness (principal); D61.818 Other pancytopenia; R11.0 Nausea; E11.43 Type 2 diabetes mellitus with diabetic autonomic (poly)neuropathy; Z79.4 Long term (current) use of insulin; G40.909 Epilepsy, unspecified, not intractable, without status epilepticus; E03.9 Hypothyroidism, unspecified; F32.9 Major depressive disorder, single episode, unspecified; K74.60 Unspecified cirrhosis of liver; G43.909 Migraine, unspecified, not intractable, without status migrainosus; Z88.0 Allergy status to penicillin; Z88.8 Allergy status to other drugs, medicaments and biological substances; Z88.1 Allergy status to other antibiotic agents; Z88.6 Allergy status to analgesic agent; Z91.018 Allergy to other foods

== ENCOUNTER 2017-08-12 22:26 | Observation (INO) | payer BC, OTHER ==
[~2017-08-12] VITALS: Ht 165.1 cm; Wt 91.4 kg
--- NOTE | 2017-08-12 23:25 | EMERGENCY ROOM VISIT NOTE ---
History Report prepared by Broderick: Martin Winn Under the Supervision of: Dr. Pino Gonzales M.D. First contact with patient: 23:14 Chief Complaint: SEIZURE Stated Complaint: SEIZURES Nursing Triage Summary: Patient had two grandmal seizures last night and another seizure tonight at about 2150. states she has missed a few doses of her seizure medications History of Present Illness The patient is a 51 year old female who presents to the Emergency Room with complaints of resolved seizure-like activity beginning last evening. The patient 's states she had two, strong, grandmal seizures that lasted a few minutes and were about a half hour apart. He reports the patient then had another suspected seizure this evening. The notes she reported she was not feeling well and then started convulsing. He states she recently missed a large amount of medications, but she did take all of her seizure medication today because he gave it to the patient. The reports she had three rounds of seizure medications today. He notes she was evaluated by her PCP today and took an Oxy/IR for her pain. The states the patient's pain medications were not discussed at the PCP today. Upon initial examination, the patient refused to answer questions. I performed a second evaluation shortly after leaving the room the first time. The patient was looking around the room, saw me, and then closed her eyes. She was then willing to admit she has a headache when asked if she had pain. She refused to answer further questions about the ROS. HPI limited secondary to the patient's poor cooperation. Source of History: patient History Limited By: poor cooperation Onset: last evening Symptom Intensity: two grandmal Quality: other (seizure) Timing: resolved Associated Symptoms: + headache Review of Systems The patient states she has a headache when asked if she had pain. She refused to answer further questions about the ROS. Past Medical & Surgical Medical Problems: (1) Asthma (2) Bipol I, Rec Epis (Or Current) Depressed, Unspecified (3) Borderline personality disorder (4) Cirrhosis (5) Closed right hip fracture (6) Depression (7) Diab Ashley Wo Comp Type Ii Or Nos/Not Uncontrolled (8) Diabetic gastroparesis (9) Heart murmur (10) History of hepatic encephalopathy (11) Hyponatremia (12) Hypothyroidism (13) Major depressive disorder with psychotic features (14) Migraines (15) Murmur (16) Myelodysplastic syndrome (17) Opiate abuse, continuous (18) Pancytopenia (19) Peptic ulcer disease (20) Portal Hypertension (21) Seizure disorder (22) Suicidal ideation (23) UTI (urinary tract infection) Surgical Problems: (1) H/O nasal septoplasty (2) History of appendectomy (3) History of cholecystectomy (4) History of hysterectomy (5) History of kyphoplasty (6) History of tonsillectomy (7) s/p spinal stimulator placement Family History Depression Hypertension Social History Smoking Status: Never Smoker Alcohol Use: none Drug Use: none Marital Status: Housing Status: lives with family Occupation Status: disabled Current/Historical Medications Scheduled Ascorbic Acid (Vitamin C), 1,000 MG PO QAM Cholecalciferol (Vitamin D), 5,000 UNITS PO QAM Cranberry (Vaccinium Macrocarp (Cranberry Extract), 1 CAP PO BID Hydroxyzine Pamoate (Vistaril), 50 MG PO HS Ibuprofen (Advil), 400 MG PO UD Insulin Glargine (Lantus Solostar), 40 UNITS SC BID Insulin Lispro (Human) (Humalog Kwikpen), 20 UNITS SC AC Levetiracetam (Levetiracetam), 2,000 MG PO BID Levothyroxine Sodium (Levothyroxine Sodium), 75 MCG PO QAM Magnesium Oxide (Mg Supplement (Magnesium), 500 MG PO BID Mirtazapine (Mirtazapine), 45 MG PO HS Multivitamin (Multivitamin), 1 TAB PO QAM Omeprazole (Prilosec), 20 MG PO QAM Oxcarbazepine (Trileptal), 300 MG PO BID Probiotic Product (Probiotic), 1 CAP PO QAM Promethazine HCl (Promethazine HCl), 25 MG PO UD Rifaximin (Xifaxan), 550 MG PO BID Sertraline (Zoloft), 100 MG PO QAM Spironolactone (Aldactone), 50 MG PO QAM Topiramate (Topamax ), 75 MG PO QPM Topiramate (Topamax), 100 MG PO QAM Vitamin A (Vitamin A), 1 CAP PO QAM Zinc Gluconate (Zinc), 50 MG PO BID Scheduled PRN Lactulose (Chronulac), 15 ML PO QAM PRN for Constipation Ondansetron Odt (Zofran Odt), 8 MG SL Q6H PRN for Nausea Oxycodone Ir (Roxicodone Ir), 5 MG PO Q12H PRN for Pain Rizatriptan Benzoate (Maxalt), 10 MG PO DIRECTED PRN for Migraine Allergies Coded Allergies: Amoxicillin (Verified Allergy, Intermediate, HIVES; Has tolerated cephalosporins (Rocephin, Ceftin,Keflex, 08/13/17) Azithromycin (Verified Allergy, Intermediate, HIVES, 08/13/17) Baclofen (Verified Allergy, Intermediate, RASH, 08/13/17) Butalbital (Verified Allergy, Intermediate, HIVES, 08/13/17) Clarithromycin (Verified Allergy, Intermediate, RASH, 08/13/17) Dicyclomine (Verified Allergy, Intermediate, HIVES, 08/13/17) HIVES Penicillins (Verified Allergy, Intermediate, RASH; has tolerated cephs ( Rocephin, Keflex, Ceftin), 08/13/17) PT STATES SHE GETS WELTS FROM CIPRO,LEVAQUIN ALLERGY PER DR ROBLES Tetracyclines (Verified Allergy, Intermediate, DOXYCYCLINE-HIVES, 08/13/17) Sulindac (Verified Allergy, Mild, ALLERGY LISTED "CLONDORAL"--HIVES, ) Adhesives (Verified Allergy, Unknown, RASH, DUODERM=RED,ITCHY, 08/13/17) PLASTIC TAPE IS OK!!! DUODERM=RED,ITCHY Clavulanic Acid (Verified Allergy, Unknown, diahrea , 08/13/17) Metronidazole (Verified Allergy, Unknown, SEIZURE, 08/13/17) Tramadol (Verified Allergy, Unknown, SEIZURES, 08/13/17) Furosemide (Verified Adverse Reaction, Severe, HIVES, 08/13/17) Metoclopramide (Verified Adverse Reaction, Severe, SEIZURES, 08/13/17) Insulin Aspart (Verified Adverse Reaction, Intermediate, NO ALLERGY!!!!!! , 08/13/17) PT SAYS HER INSURANCE (EVEN WHILE HOSPITALIZED) WILL NOT PAY FOR NOVOLOG!! ONLY HUMALOG!!! Blueberry (Verified Adverse Reaction, Mild, STOMACH PAIN, 08/13/17) Physical Exam Vital Signs Date Time Temp Pulse Resp B/P (MAP) Pulse Ox O2 Delivery O2 Flow Rate FiO2 08/13/17 05:00 73 18 130/72 98 Room Air 08/13/17 03:03 72 08/13/17 03:00 71 18 113/56 98 Room Air 08/13/17 02:00 72 18 122/58 98 Room Air 08/13/17 00:24 72 18 126/65 99 Room Air 08/12/17 23:20 74 08/12/17 22:30 36.7 79 18 137/68 97 Room Air Physical Exam GENERAL: Patient is well appearing and in no acute distress. She is periodically trying to look at me. When I open her eyes, she is looking up and to the left or right. Her pupils are obviously active and reactive to light. The patient is purposefully avoiding eye contact with me. She occasionally interacts when pinched before she suppresses herself. EYES: No scleral icterus, unremarkable pupils. ENT: Mucous membranes moist, no nasal congestion. NECK: No masses appreciated, no meningismus, trachea is midline. RESPIRATORY: No dyspnea. Clear to auscultation and equal bilaterally. No wheeze , no rhonchi. CARDIOVASCULAR: Regular rate and rhythm. No murmurs, rubs, gallops appreciated. GASTROINTESTINAL: Abdomen soft, nontender, no peritonitis. Bowel sounds positive. No masses appreciated. BACK: No midline tenderness, no CVA tenderness EXTREMITIES: Normal motion all extremities, no cyanosis, no edema. NEUROLOGIC: Alert and oriented, no acute motor or sensory deficits, no focal weakness, cranial nerves grossly intact. SKIN: No jaundice, no diaphoresis. The is skin picking over the right scalp. Medical Decision & Procedures ER Provider Diagnostic Interpretation: X ray results are stated below per my interpretation: Chest: 1 view: No infiltrate, no effusion, normal cardiac border. Mild congestion findings similar to previous chest x-rays. Port on the right chest. Vagal nerve stimulator on the left chest. [facility] results and stated below per my review and radiologist interpretation: CT HEAD: No acute infarction or hemorrhage No mass effect, midline shift, or hydrocephalus Radiologist: Mo Dupree MD Laboratory Results Test 08/12/17 23:51 08/13/17 04:44 RDW Standard Deviation 49.7 fL (36.4-46.3) RDW Coefficient of Variation 14.0 % (11.5-14.5) White Blood Count 3.95 K/uL (4.8-10.8) Red Blood Count 2.75 M/uL (4.2-5.4) Hemoglobin 9.5 g/dL (12.0-16.0) Hematocrit 27.3 % (37-47) Mean Corpuscular Volume 99.3 fL (80-100) Mean Corpuscular Hemoglobin 34.5 pg (25-34) Mean Corpuscular Hemoglobin Concent 34.8 g/dl (32-36) Platelet Count 81 K/uL (130-400) Mean Platelet Volume 9.2 fL (7.4-10.4) Neutrophils (%) (Auto) 46.4 % Lymphocytes (%) (Auto) 35.7 % Monocytes (%) (Auto) 9.6 % Eosinophils (%) (Auto) 7.3 % Basophils (%) (Auto) 1.0 % Neutrophils # (Auto) 1.83 K/uL (1.4-6.5) Lymphocytes # (Auto) 1.41 K/uL (1.2-3.4) Monocytes # (Auto) 0.38 K/uL (0.11-0.59) Eosinophils # (Auto) 0.29 K/uL (0-0.5) Basophils # (Auto) 0.04 K/uL (0-0.2) Immature Granulocyte % (Auto) 0.0 % Immature Granulocyte # (Auto) 0.00 K/uL (0.00-0.02) Red Blood Cell Morphology Unremarkable Magnesium Level 1.7 mg/dl (1.8-2.4) Direct Bilirubin 0.4 mg/dl (0-0.2) Laboratory results as reviewed by me. Medications Administered Medications (Trade) Dose Ordered Sig/Danita Route Start Time Stop Time Status Last Admin Dose Admin Heparin Sodium (Porcine) (Heparin 100 Unit/ml 5ml Flush) 5 ml STK-MED ONCE .ROUTE 08/12/17 23:35 08/12/17 23:36 DC 08/12/17 23:56 5 ML ED Course 2317: The patient was evaluated in room A11B. A complete history and physical exam was performed. 0115: Upon reevaluation, the patient is not responding to her or I. He states he feels he can no longer care for her at home. Discussed results and treatment plan with the patient's . He verbalized understanding and agreement with the treatment plan. The patient will be evaluated for further management. 0134: I discussed the patient's case with Dr. Vera, the resident for Dr. Osei [facility]ist. The patient will be evaluated for further management. Medical Decision Differential: Sepsis, Infectious (UTI/Pneumonia/Meningitis/etc), Metabolic/ Electrolyte Abnormality, Cardiac, Dehydration, Anemia, Hepatic, Endocrine, Toxicologic, Neurologic, amongst other pathologies entertained. 51 yr old female arrives for evaluation of seizures. Clearly she is somewhat faking how sleepy/obtunded she is as she is answering questions for nursing but when I walk in room she immediately goes quiet. That said she is not sitting up and is unable to be convinced to move even by . The longer she stayed the more somnolent she appeared. CT head and chest are negative for acute process. Labs unremarkable other than her ammonia has now more than doubled from yesterday. admits eating chicken and beef over last 48 hours, not taking lactulose and having no BM today, which are likely contributing to her elevated ammonia. She is either unwilling or unable to get up and move thus I can in no way just send her home, and given her complex history I can not reasonably get psych consult on her at this time. Hospitalist consulted for further management/treatment. Head Trauma GCS Score: 14 Medication Reconcilliation Current Medication List: was personally reviewed by me Blood Pressure Screening Patient's blood pressure: Normal blood pressure Blood pressure disposition: Did not require urgent referral Consults Time Called: 0121 Consulting Physician: Dr. Vera, the resident for Dr. Osei [facility] Hospitalist Returned Call: [phone] I discussed the patient's case with Dr. Vera, the resident for Dr. Osei [facility] Hospitalist. The patient will be evaluated for further management. Impression Primary Impression: Hepatic encephalopathy Additional Impression: Noncompliance with medications Scribe Attestation The scribe's documentation has been prepared under my direction and personally reviewed by me in its entirety. I confirm that the note above accurately reflects all work, treatment, procedures, and medical decision making performed by me. Departure Information Dispostion Being Evaluated By Hospitalist Referrals Olena Little DO (PCP) Patient Instructions My [facility] Problem Qualifiers
[2017-08-12 23:59] LABS: HEMATOCRIT 27.3 % (37-47); HEMOGLOBIN 9.5 g/dL (12.0-16.0); MEAN CELL VOLUME 99.3 fL (80-100); MEAN CORPUSCULAR HEMOGLOBIN 34.5 pg (25-34); MEAN CORPUSCULAR HGB CONC 34.8 g/dl (32-36); RED CELL DISTRIBUTION WIDTH SD 49.7 fL (36.4-46.3); WHITE BLOOD COUNT 3.95 K/uL (4.8-10.8)
[2017-08-13 00:05] LABS: MEAN PLATELET VOLUME 9.2 fL (7.4-10.4); PLATELET COUNT 81 K/uL (130-400)
[2017-08-13 00:16] LABS: CALCIUM 7.2 mg/dl (8.5-10.1); CARBON DIOXIDE 26 mmol/L (21-32); CREATININE 0.58 mg/dl (0.60-1.20); GLUCOSE 168 mg/dl (70-99); POTASSIUM 3.5 mmol/L (3.5-5.1); SODIUM 140 mmol/L (136-145)
[2017-08-13 00:21] LABS: BASO ABS # 0.04 K/uL (0-0.2); EOS % 7.3 %; EOS ABS # 0.29 K/uL (0-0.5); LYMPH % 35.7 %; LYMPH ABS # 1.41 K/uL (1.2-3.4); MONO % 9.6 %; MONO ABS # 0.38 K/uL (0.11-0.59); NEUT % 46.4 %; NEUT ABS # 1.83 K/uL (1.4-6.5)
[2017-08-13 01:06] LABS: BLOOD UREA NITROGEN 15 mg/dl (7-18)
[2017-08-13 02:00] LABS: ALBUMIN 2.8 gm/dl (3.4-5.0); AST/SGOT 44 U/L (15-37); TOTAL PROTEIN 5.9 gm/dl (6.4-8.2)
[2017-08-13 02:01] LABS: ALKALINE PHOSPHATASE 230 U/L (45-117); ALT/SGPT 41 U/L (12-78)
[2017-08-13] MEDS ORDERED: PROMETHAZINE HCL 25 MG TAB PO PRN (04:15)
[2017-08-13] MEDS ORDERED: ALUMINUM/MAGNESIUM/SIMETH (MAALOX MAX) 30 ML UDC PO PRN (04:15)
[2017-08-13] MEDS ORDERED: ONDANSETRON INJ 2 MG/ML 2 ML VIAL IV PRN (04:15)
[2017-08-13] MEDS ORDERED: MAGNESIUM HYDROXIDE SUSP 30 ML UDC PO PRN (04:15)
[2017-08-13] MEDS ORDERED: ONDANSETRON 8MG OD TAB SL PRN (04:15)
[2017-08-13 05:08] VITALS: BP 132/74; PULSE 74; TEMP 36.6; O2SAT 98; Ht 165.1 cm; Wt 91.4 kg
--- NOTE | 2017-08-13 05:19 | History and Physical ---
History & Physical Date & Time of Service: August 13, 2017 at 05:19 Chief Complaint: Seizures Primary Care Physician: Olena Little DO History of Present Illness Source: spouse 51 yo F with pMHx of liver cirrhosis secondary to her antiseizure medications, DMII on insulin, hypothyroidism, seizure disorder, migraines, asthma, parkinsonism, bipolar disorder, depression, chronic pancytopenia, and GERD, traumatic R femoral fracture with intertrochanteric vijaya placed 04/13. Per , patient has been having GI symptoms and has thus been unable to take any of her medications. She has missed 3 doses of seizure meds and her lactulose. Consequently she is said to have had 2 convulsive seizures yesterday and another one earlier today. He states the patient has been sleeping a lot more as well. Patient is asleep at present and not rousable, and thus unable to provide any history. She had multiple visits to the ER, including yesterday. In the ER, ammonia is noted to be elevated at 172 today. Past Medical/Surgical History Medical Problems: (1) Acute bronchitis (2) Acute bronchitis (3) Acute hepatic encephalopathy (4) Alkaline phosphatase elevation (5) Altered mental status (6) Altered mental status (7) Anemia (8) Asthma (9) Back pain (10) Bipol I, Rec Epis (Or Current) Depressed, Unspecified (11) Blepharitis of both eyes (12) Borderline personality disorder (13) Bradycardia (14) Breakthrough seizure (15) Burn (16) Change in mental status (17) Change in mental status (18) Change in mental status (19) Change in mental status (20) Chronic low back pain (21) Chronic low back pain (22) Cirrhosis (23) Closed head injury (24) Closed head injury (25) Closed right hip fracture (26) Dehydration (27) Dehydration (28) Depression (29) Diab Ashley Wo Comp Type Ii Or Nos/Not Uncontrolled (30) Diabetic gastroparesis (31) Diarrhea (32) Dizziness (33) Dizziness (34) Facial laceration (35) Failure of outpatient treatment (36) Fall (37) Fall (38) Fall (39) Fatigue (40) Head trauma (41) Head trauma (42) Heart murmur (43) Hemorrhoid (44) Hemorrhoids (45) Hepatic encephalopathy (46) Hepatic encephalopathy (47) Hepatic encephalopathy (48) Hepatic encephalopathy (49) Hepatic encephalopathy (50) Hepatic encephalopathy (51) Hepatic encephalopathy (52) Hepatic encephalopathy (53) Hepatic encephalopathy (54) Hepatic encephalopathy (55) Hepatic encephalopathy (56) Hepatic encephalopathy (57) Hepatic encephalopathy (58) Hepatic encephalopathy (59) Hepatic encephalopathy (60) History of hepatic encephalopathy (61) Hyperammonemia (62) Hyperammonemia (63) Hyperammonemia (64) Hyperammonemia (65) Hypocalcemia (66) Hypocalcemia (67) Hypocalcemia (68) Hypokalemia (69) Hypokalemia (70) Hypokalemia (71) Hypomagnesemia (72) Hyponatremia (73) Hypothyroidism (74) Increased ammonia level (75) Intertrochanteric fracture of left femur (76) Left foot pain (77) Left shoulder pain (78) Leukopenia (79) Lightheaded (80) Low back pain (81) Major depressive disorder with psychotic features (82) Malingering (83) Medical non-compliance (84) Migraine (85) Migraines (86) Murmur (87) Myelodysplastic syndrome (88) Nausea (89) Nausea (90) Nausea (91) Nausea (92) Nausea & vomiting (93) Noncompliance (94) Noncompliance with medication regimen (95) Opiate abuse, continuous (96) Pain in pelvis (97) Pain, joint, ankle, right (98) Pancytopenia (99) Pancytopenia (100) Peptic ulcer disease (101) Persistent vomiting (102) Portal Hypertension (103) Post-operative pain (104) Request for narcotic pain medication (105) Right ear pain (106) Right groin pain (107) Right hip pain (108) Right shoulder pain (109) Right upper lobe pneumonia (110) RUQ abdominal pain (111) Seizure (112) Seizure (113) Seizure disorder (114) Sepsis (115) Suicidal ideation (116) UTI (urinary tract infection) (117) UTI (urinary tract infection) (118) Vomiting (119) Weakness (120) Weakness (121) Weakness (122) Weakness Surgical Problems: (1) H/O nasal septoplasty (2) History of appendectomy (3) History of cholecystectomy (4) History of hysterectomy (5) History of kyphoplasty (6) History of tonsillectomy (7) s/p spinal stimulator placement Family History Depression Hypertension non contributory Social History Smoking Status: Never Smoker Smokeless Tobacco Use: No Alcohol Use: none Drug Use: none Marital Status: Housing status: lives with family Occupational Status: disabled Immunizations History of Influenza Vaccine: Yes Influenza Vaccine Date: Feb 02, 2013 History of Tetanus Vaccine?: utd Tetanus Immunization Date: Jun 11, 2008 History of Pneumococcal: SEE LAST PACKET Pneumococcal Date: Nov 13, 2008 History of Hepatitis B Vaccine: Unknown Hepatitis Immunization Date: Jan 12, 1996 Allergies Coded Allergies: Amoxicillin (Verified Allergy, Intermediate, HIVES; Has tolerated cephalosporins (Rocephin, Ceftin,Keflex, 08/13/17) Azithromycin (Verified Allergy, Intermediate, HIVES, 08/13/17) Baclofen (Verified Allergy, Intermediate, RASH, 08/13/17) Butalbital (Verified Allergy, Intermediate, HIVES, 08/13/17) Clarithromycin (Verified Allergy, Intermediate, RASH, 08/13/17) Dicyclomine (Verified Allergy, Intermediate, HIVES, 08/13/17) HIVES Penicillins (Verified Allergy, Intermediate, RASH; has tolerated cephs ( Rocephin, Keflex, Ceftin), 08/13/17) PT STATES SHE GETS WELTS FROM CIPRO,LEVAQUIN ALLERGY PER DR ROBLES Tetracyclines (Verified Allergy, Intermediate, DOXYCYCLINE-HIVES, 08/13/17) Sulindac (Verified Allergy, Mild, ALLERGY LISTED "CLONDORAL"--HIVES, ) Adhesives (Verified Allergy, Unknown, RASH, DUODERM=RED,ITCHY, 08/13/17) PLASTIC TAPE IS OK!!! DUODERM=RED,ITCHY Clavulanic Acid (Verified Allergy, Unknown, diahrea , 08/13/17) Metronidazole (Verified Allergy, Unknown, SEIZURE, 08/13/17) Tramadol (Verified Allergy, Unknown, SEIZURES, 08/13/17) Furosemide (Verified Adverse Reaction, Severe, HIVES, 08/13/17) Metoclopramide (Verified Adverse Reaction, Severe, SEIZURES, 08/13/17) Insulin Aspart (Verified Adverse Reaction, Intermediate, NO ALLERGY!!!!!! , 08/13/17) PT SAYS HER INSURANCE (EVEN WHILE HOSPITALIZED) WILL NOT PAY FOR NOVOLOG!! ONLY HUMALOG!!! Blueberry (Verified Adverse Reaction, Mild, STOMACH PAIN, 08/13/17) Home Medications Scheduled Ascorbic Acid (Vitamin C), 1,000 MG PO QAM Cholecalciferol (Vitamin D), 5,000 UNITS PO QAM Cranberry (Vaccinium Macrocarp (Cranberry Extract), 1 CAP PO BID Hydroxyzine Pamoate (Vistaril), 50 MG PO HS Ibuprofen (Advil), 400 MG PO UD Insulin Glargine (Lantus Solostar), 40 UNITS SC BID Insulin Lispro (Human) (Humalog Kwikpen), 20 UNITS SC AC Levetiracetam (Levetiracetam), 2,000 MG PO BID Levothyroxine Sodium (Levothyroxine Sodium), 75 MCG PO QAM Magnesium Oxide (Mg Supplement (Magnesium), 500 MG PO BID Mirtazapine (Mirtazapine), 45 MG PO HS Multivitamin (Multivitamin), 1 TAB PO QAM Omeprazole (Prilosec), 20 MG PO QAM Oxcarbazepine (Trileptal), 300 MG PO BID Probiotic Product (Probiotic), 1 CAP PO QAM Promethazine HCl (Promethazine HCl), 25 MG PO UD Rifaximin (Xifaxan), 550 MG PO BID Sertraline (Zoloft), 100 MG PO QAM Spironolactone (Aldactone), 50 MG PO QAM Topiramate (Topamax ), 75 MG PO QPM Topiramate (Topamax), 100 MG PO QAM Vitamin A (Vitamin A), 1 CAP PO QAM Zinc Gluconate (Zinc), 50 MG PO BID Scheduled PRN Lactulose (Chronulac), 15 ML PO QAM PRN for Constipation Ondansetron Odt (Zofran Odt), 8 MG SL Q6H PRN for Nausea Oxycodone Ir (Roxicodone Ir), 5 MG PO Q12H PRN for Pain Rizatriptan Benzoate (Maxalt), 10 MG PO DIRECTED PRN for Migraine Physical Exam Vital Signs Date Time Temp Pulse Resp B/P (MAP) Pulse Ox O2 Delivery O2 Flow Rate FiO2 08/13/17 05:00 73 18 130/72 98 Room Air 08/13/17 03:03 72 08/13/17 03:00 71 18 113/56 98 Room Air 08/13/17 02:00 72 18 122/58 98 Room Air 08/13/17 00:24 72 18 126/65 99 Room Air 08/12/17 23:20 74 08/12/17 22:30 36.7 79 18 137/68 97 Room Air General Appearance: WD/WN Head: normocephalic, atraumatic Eyes: sclerae normal Neck: no adenopathy Respiratory/Chest: no respiratory distress, no accessory muscle use Cardiovascular: regular rate, rhythm, no murmur, normal peripheral pulses Abdomen/GI: normal bowel sounds, soft Extremities/Musculoskelatal: no pedal edema Neurologic/Psych: + pertinent finding (unrousable) Skin: normal color, warm/dry, no rash Diagnostics Laboratory Results Results Past 24 Hours Test 08/12/17 23:51 08/13/17 04:44 Range/Units White Blood Count 3.95 4.8-10.8 K/uL Red Blood Count 2.75 4.2-5.4 M/uL Hemoglobin 9.5 12.0-16.0 g/dL Hematocrit 27.3 37-47 % Mean Corpuscular Volume 99.3 80-100 fL Mean Corpuscular Hemoglobin 34.5 25-34 pg Mean Corpuscular Hemoglobin Concent 34.8 32-36 g/dl Platelet Count 81 130-400 K/uL Mean Platelet Volume 9.2 7.4-10.4 fL Neutrophils (%) (Auto) 46.4 % Lymphocytes (%) (Auto) 35.7 % Monocytes (%) (Auto) 9.6 % Eosinophils (%) (Auto) 7.3 % Basophils (%) (Auto) 1.0 % Neutrophils # (Auto) 1.83 1.4-6.5 K/uL Lymphocytes # (Auto) 1.41 1.2-3.4 K/uL Monocytes # (Auto) 0.38 0.11-0.59 K/uL Eosinophils # (Auto) 0.29 0-0.5 K/uL Basophils # (Auto) 0.04 0-0.2 K/uL RDW Standard Deviation 49.7 36.4-46.3 fL RDW Coefficient of Variation 14.0 11.5-14.5 % Immature Granulocyte % (Auto) 0.0 % Immature Granulocyte # (Auto) 0.00 0.00-0.02 K/uL Red Blood Cell Morphology Unremarkable Sodium Level 140 136-145 mmol/L Potassium Level 3.5 3.5-5.1 mmol/L Chloride Level 109 98-107 mmol/L Carbon Dioxide Level 26 21-32 mmol/L Anion Gap 5.0 3-11 mmol/L Blood Urea Nitrogen 15 7-18 mg/dl Creatinine 0.58 0.60-1.20 mg/dl Estimated GFR () 123.7 Estimated GFR (Non- 106.7 BUN/Creatinine Ratio 25.1 10-20 Random Glucose 168 70-99 mg/dl Calcium Level 7.2 8.5-10.1 mg/dl Magnesium Level 1.7 1.8-2.4 mg/dl Total Bilirubin 1.0 0.2-1 mg/dl Direct Bilirubin 0.4 0-0.2 mg/dl Aspartate Amino Transf (AST/SGOT) 44 15-37 U/L Alanine Aminotransferase (ALT/SGPT) 41 12-78 U/L Alkaline Phosphatase 230 45-117 U/L Ammonia 172.0 11-32 umol/L Total Protein 5.9 6.4-8.2 gm/dl Albumin 2.8 3.4-5.0 gm/dl Diagnostic Radiology CT HEAD WITHOUT CONTRAST (CT) CLINICAL HISTORY: Seizures COMPARISON STUDY: 07/17/2017 TECHNIQUE: Axial CT of the brain is performed from the vertex to the skull base. IV contrast was not administered for this examination. A dose lowering technique was utilized adhering to the principles of ALARA. CT DOSE: 655.73 mGy.cm FINDINGS: No intra or extra-axial mass lesions are visualized. There is no CT evidence of acute cortical infarction. There is no evidence of midline shift. There is no acute hemorrhage. No calvarial fractures are visualized. There are minor white matter hypodensities likely on a small vessel basis. There is no evidence of pathologic ventricular dilatation. There is no evidence of acute sinusitis IMPRESSION: No acute intracranial findings SINGLE VIEW CHEST CLINICAL HISTORY: Change in mental status. Seizure. FINDINGS: An AP, portable, upright chest radiograph is compared to study dated 08/03/2017. The examination is degraded by portable technique, large body habitus, and patient rotation. A right-sided central venous infusion port is unchanged in position. An electronic device is again seen projecting over the left upper chest with leads extending into the neck. The heart is enlarged. The pulmonary vasculature is noncongested. There are low lung lungs with bibasilar atelectasis. No airspace consolidation or pleural effusion is identified. No pneumothorax is seen. The skeletal structures are osteopenic. There is chronic posterior matter deformity and postoperative change in the left proximal humerus. IMPRESSION: No acute cardiopulmonary abnormality. Impression Assessment and Plan Patient is a pleasant 51 y/o female, with PMHx liver cirrhosis, T2DM, hypothyroidism, seizure disorder, migraines, asthma, parkinsonism, bipolar disorder, depression, chronic pancytopenia, and GERD, who presented to the ED with seizure like activity and altered mentation. Altered mental status: CT head negative. Possibly attributable to elevated ammonia (see below) Liver cirrhosis. chronic pancytopenia: Chronically elevated ammonia level- 172 at admission. Increased lactulose frequency to 10g QID, continue rifaximin T2DM- ha1c 4.8% on 12/2016: Continue Lantus + ISS with BSG ACHS Hypothyroidism: continue levothyroxine Bipolar disorder, depression: Continue sertraline and mirtazapine Seizure disorder and h/o migraines: Continue levetiracetam, Trileptal, Topamax and Maxalt PRN Asthma: Continue Ventolin and Symbicort GERD: Continue pantoprazole DVT prophylaxis: SCDs, Heparin SC Code Status: LEVEL I, FULL Dispo: From home, lives w/ - CM consulted Attending addendum: I have physically seen this patient, have supervised the medical residents activities, and agree with the H&P unless as otherwise noted. Assessment and Plan: Hepatic encephalopathy/liver cirrhosis/medical noncompliance-- Resume lactulose at outpatient dosing. If unable to take oral, would prescribe lactulose enemas Serial ammonia levels. 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-- Continue Lantus insulin. Place on Accu-Cheks before meals and at bedtime with NovoLog as per scale. Seizure disorder/migraines-- Continue Keppra, Trileptal, Topamax. Continue Maxalt as needed. Bipolar disorder/depression/medical noncompliance-- Continue sertraline and mirtazapine. Medical noncompliance issues have been addressed multiple times in the past with patient and , and result in frequent readmissions due to her stopping taking required medications. The patient has done best in the past when she has been in a supervised setting such as [facility] or [facility]. Other medications as above. Advanced Directives Existing Advance Directive: No Existing Living Will: No Existing Power of Label Paster: No Resuscitation Status FULL VTE Prophylaxis Will order VTE Prophylaxis: Yes Resident Tracking Resident Involvement: Resident Care Provided Care Provided: Adult Hospital Medicine
[2017-08-13] MEDS ORDERED: IV FLUIDS COMPLETED PRN (05:45)
[2017-08-13] MEDS ORDERED: CARBOHYDRATES FOR HYPOGLYCEMIA PO PRN ×2 (06:00→07:45)
[2017-08-13] MEDS ORDERED: GLUCAGON FOR INJ 1 MG VIAL IM PRN (06:00)
[2017-08-13] MEDS ORDERED: GLUCOSE 40% GEL 15 GM TUBE PO PRN ×2 (06:00→19:15)
[2017-08-13] MEDS ORDERED: GLUCOSE 10 TABS/TUBE PO PRN ×2 (06:00→19:15)
[2017-08-13] MEDS ORDERED: DEXTROSE 50% 50 ML SYR IV PRN (06:00)
[2017-08-13] MEDS: LEVOTHYROXINE 75 MCG TAB PO SCH (06:22)
--- NOTE | 2017-08-13 06:32 | DIAGNOSTIC IMAGING REPORT ---
CT HEAD WITHOUT CONTRAST (CT) CLINICAL HISTORY: Seizures COMPARISON STUDY: 07/17/2017 TECHNIQUE: Axial CT of the brain is performed from the vertex to the skull base. IV contrast was not administered for this examination. A dose lowering technique was utilized adhering to the principles of ALARA. CT DOSE: 655.73 mGy.cm FINDINGS: No intra or extra-axial mass lesions are visualized. There is no CT evidence of acute cortical infarction. There is no evidence of midline shift. There is no acute hemorrhage. No calvarial fractures are visualized. There are minor white matter hypodensities likely on a small vessel basis. There is no evidence of pathologic ventricular dilatation. There is no evidence of acute sinusitis IMPRESSION: No acute intracranial findings Electronically signed by: Bran Hernandez M.D. 08/13/2017 6:31 AM Dictated Date/Time: 08/13/2017 6:29 AM
[2017-08-13 07:22] VITALS: BP 126/74; PULSE 73; TEMP 36.5; O2SAT 97
--- NOTE | 2017-08-13 07:23 | DIAGNOSTIC IMAGING REPORT ---
SINGLE VIEW CHEST CLINICAL HISTORY: Change in mental status. Seizure. FINDINGS: An AP, portable, upright chest radiograph is compared to study dated 08/03/2017. The examination is degraded by portable technique, large body habitus, and patient rotation. A right-sided central venous infusion port is unchanged in position. An electronic device is again seen projecting over the left upper chest with leads extending into the neck. The heart is enlarged. The pulmonary vasculature is noncongested. There are low lung lungs with bibasilar atelectasis. No airspace consolidation or pleural effusion is identified. No pneumothorax is seen. The skeletal structures are osteopenic. There is chronic posterior matter deformity and postoperative change in the left proximal humerus. IMPRESSION: No acute cardiopulmonary abnormality. Electronically signed by: Aiden Randolph M.D. 08/13/2017 7:21 AM Dictated Date/Time: 08/13/2017 7:20 AM
[2017-08-13 07:48] LABS: HEMATOCRIT 26.2 % (37-47); HEMOGLOBIN 9.4 g/dL (12.0-16.0); MEAN CELL VOLUME 98.1 fL (80-100); MEAN CORPUSCULAR HEMOGLOBIN 35.2 pg (25-34); MEAN CORPUSCULAR HGB CONC 35.9 g/dl (32-36); RED CELL DISTRIBUTION WIDTH CV 13.7 % (11.5-14.5); RED CELL DISTRIBUTION WIDTH SD 47.9 fL (36.4-46.3); WHITE BLOOD COUNT 3.08 K/uL (4.8-10.8)
[2017-08-13 08:02] LABS: MEAN PLATELET VOLUME 9.6 fL (7.4-10.4); PLATELET COUNT 71 K/uL (130-400)
[2017-08-13] MEDS: LACTULOSE SYRUP 20 GM/30 ML UDC PO SCH ×4 (08:03→22:00)
[2017-08-13] MEDS: LEVETIRACETAM 500 MG TAB PO SCH ×2 (08:03→22:02)
[2017-08-13] MEDS: SPIRONOLACTONE 25 MG TAB PO SCH (08:04)
[2017-08-13] MEDS: TOPIRAMATE 100 MG TAB PO SCH (08:04)
[2017-08-13] MEDS: RIFAXIMIN TAB 550 MG TAB PO SCH ×2 (08:04→22:05)
[2017-08-13] MEDS: MULTIVITAMIN TAB PO SCH (08:04)
[2017-08-13] MEDS: SERTRALINE HCL 50 MG TAB PO SCH (08:04)
[2017-08-13] MEDS: MAGNESIUM OXIDE 400 MG TAB PO SCH ×2 (08:05→22:02)
[2017-08-13] MEDS: POLYETHYLENE (MIRALAX) 17 GM PACK PO SCH (08:05)
[2017-08-13] MEDS: CHOLECALCIFEROL 1000 INTER.UNIT TAB PO SCH (08:05)
[2017-08-13] MEDS: PANTOprazole SOD 40 MG TAB PO SCH (08:05)
[2017-08-13] MEDS: OXCARBAZEPINE 150 MG TAB PO SCH ×2 (08:05→22:04)
[2017-08-13] MEDS: INSULIN GLARGINE SOLOSTAR 100 UNITS/ML 3 ML PEN SC SCH ×2 (08:12→21:59)
[2017-08-13] MEDS: HEPARIN SOD 5000 UNIT/0.5 ML CARP SQ SCH ×2 (08:12→20:00)
[2017-08-13 08:23] LABS: ALBUMIN 2.6 gm/dl (3.4-5.0); CALCIUM 7.2 mg/dl (8.5-10.1); CREATININE 0.5 mg/dl (0.60-1.20); POTASSIUM 3.8 mmol/L (3.5-5.1)
[2017-08-13 08:25] LABS: TOTAL PROTEIN 5.4 gm/dl (6.4-8.2)
[2017-08-13] MEDS: INSULIN ASPART 100 UNITS/ML 3 ML PEN SC SCH ×3 (12:33→22:00)
[2017-08-13 15:02] VITALS: BP 145/75; PULSE 79; TEMP 36.8; O2SAT 98
--- NOTE | 2017-08-13 15:56 | Progress Note ---
Subjective Date of Service: August 13, 2017. Subjective pt is slightly drowsy but appears near her usual state we discussed how that her ammonia remains in good control here for days then she goes home and she decompensates in a few days she states that she is taking her medications at home Problem List Medical Problems: (1) Acute bronchitis Status: Acute (2) Acute bronchitis Status: Acute (3) Acute hepatic encephalopathy Status: Acute (4) Alkaline phosphatase elevation Status: Acute (5) Altered mental status Status: Acute (6) Anemia Status: Acute (7) Back pain Status: Acute (8) Bradycardia Status: Acute (9) Breakthrough seizure Status: Acute (10) Burn Status: Acute (11) Change in mental status Status: Acute (12) Change in mental status Status: Acute (13) Change in mental status Status: Acute (14) Change in mental status Status: Acute (15) Chronic low back pain Status: Acute (16) Chronic low back pain Status: Acute (17) Closed head injury Status: Acute (18) Dehydration Status: Acute (19) Dehydration Status: Acute (20) Diarrhea Status: Acute (21) Dizziness Status: Acute (22) Facial laceration Status: Acute (23) Failure of outpatient treatment Status: Acute (24) Fall Status: Acute (25) Fall Status: Acute (26) Fall Status: Acute (27) Fatigue Status: Acute (28) Head trauma Status: Acute (29) Hemorrhoid Status: Acute (30) Hepatic encephalopathy Status: Acute (31) Hepatic encephalopathy Status: Acute (32) Hepatic encephalopathy Status: Acute (33) Hepatic encephalopathy Status: Acute (34) Hepatic encephalopathy Status: Acute (35) Hepatic encephalopathy Status: Acute (36) Hepatic encephalopathy Status: Acute (37) Hepatic encephalopathy Status: Acute (38) Hepatic encephalopathy Status: Acute (39) Hepatic encephalopathy Status: Acute (40) Hepatic encephalopathy Status: Acute (41) Hepatic encephalopathy Status: Acute (42) Hepatic encephalopathy Status: Acute (43) Hepatic encephalopathy Status: Acute (44) Hepatic encephalopathy Status: Acute (45) Hepatic encephalopathy Status: Acute (46) Hyperammonemia Status: Acute (47) Hyperammonemia Status: Acute (48) Hyperammonemia Status: Acute (49) Hyperammonemia Status: Acute (50) Hypocalcemia Status: Acute (51) Hypocalcemia Status: Acute (52) Hypocalcemia Status: Acute (53) Hypokalemia Status: Acute (54) Hypokalemia Status: Acute (55) Hypokalemia Status: Acute (56) Hypomagnesemia Status: Acute (57) Increased ammonia level Status: Acute (58) Intertrochanteric fracture of left femur Status: Acute (59) Left foot pain Status: Acute (60) Left shoulder pain Status: Acute (61) Leukopenia Status: Acute (62) Lightheaded Status: Acute (63) Low back pain Status: Acute (64) Malingering Status: Acute (65) Medical non-compliance Status: Acute (66) Migraine Status: Acute (67) Nausea Status: Acute (68) Nausea Status: Acute (69) Nausea Status: Acute (70) Nausea Status: Acute (71) Nausea & vomiting Status: Acute (72) Noncompliance Status: Acute (73) Noncompliance with medication regimen Status: Acute (74) Noncompliance with medications Status: Acute (75) Pain in pelvis Status: Acute (76) Pain, joint, ankle, right Status: Acute (77) Pancytopenia Status: Acute (78) Persistent vomiting Status: Acute (79) Post-operative pain Status: Acute (80) Request for narcotic pain medication Status: Acute (81) Right ear pain Status: Acute (82) Right groin pain Status: Acute (83) Right hip pain Status: Acute (84) Right upper lobe pneumonia Status: Acute (85) RUQ abdominal pain Status: Acute (86) Seizure Status: Acute (87) Sepsis Status: Acute (88) UTI (urinary tract infection) Status: Acute (89) Vomiting Status: Acute (90) Weakness Status: Acute (91) Weakness Status: Acute (92) Weakness Status: Acute (93) Weakness Status: Acute Review of Systems Constitutional: + weakness, + fatigue, No fever, No chills Respiratory: No cough, No shortness of breath Cardiac: + edema, No chest pain Abdomen: + nausea, + diarrhea, No pain, No vomiting, No constipation Musculoskeletal: + joint pain, + muscle pain Neurologic: + weakness, + balance problems, No memory loss, No paralysis Psychiatric: + depression symptoms, + anxiety Objective Vital Signs Date Time Temp Pulse Resp B/P (MAP) Pulse Ox O2 Delivery O2 Flow Rate FiO2 08/13/17 15:02 36.8 79 18 145/75 (98) 98 08/13/17 08:00 Room Air 08/13/17 07:22 36.5 73 18 126/74 (91) 97 Room Air 08/13/17 05:08 36.6 74 14 132/74 98 Room Air 08/13/17 05:00 73 18 130/72 98 Room Air 08/13/17 03:03 72 08/13/17 03:00 71 18 113/56 98 Room Air 08/13/17 02:00 72 18 122/58 98 Room Air 08/13/17 00:24 72 18 126/65 99 Room Air 08/12/17 23:20 74 08/12/17 22:30 36.7 79 18 137/68 97 Room Air Physical Exam General Appearance: WD/WN, + mild distress Eyes: normal inspection, sclerae normal Respiratory/Chest: chest non-tender, lungs clear, + decreased breath sounds ( bases) Cardiovascular: regular rate, rhythm, no murmur Abdomen: normal bowel sounds, non tender, soft Extremities: no pedal edema, no calf tenderness Neurologic/Psychiatric: alert, + depressed affect Laboratory Results Last 24 Hours Test 08/12/17 23:51 08/13/17 07:32 08/13/17 07:39 08/13/17 11:10 White Blood Count 3.95 K/uL 3.08 K/uL Red Blood Count 2.75 M/uL 2.67 M/uL Hemoglobin 9.5 g/dL 9.4 g/dL Hematocrit 27.3 % 26.2 % Mean Corpuscular Volume 99.3 fL 98.1 fL Mean Corpuscular Hemoglobin 34.5 pg 35.2 pg Mean Corpuscular Hemoglobin Concent 34.8 g/dl 35.9 g/dl Platelet Count 81 K/uL 71 K/uL Mean Platelet Volume 9.2 fL 9.6 fL Neutrophils (%) (Auto) 46.4 % Lymphocytes (%) (Auto) 35.7 % Monocytes (%) (Auto) 9.6 % Eosinophils (%) (Auto) 7.3 % Basophils (%) (Auto) 1.0 % Neutrophils # (Auto) 1.83 K/uL Lymphocytes # (Auto) 1.41 K/uL Monocytes # (Auto) 0.38 K/uL Eosinophils # (Auto) 0.29 K/uL Basophils # (Auto) 0.04 K/uL RDW Standard Deviation 49.7 fL 47.9 fL RDW Coefficient of Variation 14.0 % 13.7 % Immature Granulocyte % (Auto) 0.0 % Immature Granulocyte # (Auto) 0.00 K/uL Red Blood Cell Morphology Unremarkable Sodium Level 140 mmol/L 140 mmol/L Potassium Level 3.5 mmol/L 3.8 mmol/L Chloride Level 109 mmol/L 112 mmol/L Carbon Dioxide Level 26 mmol/L 23 mmol/L Anion Gap 5.0 mmol/L 6.0 mmol/L Blood Urea Nitrogen 15 mg/dl 13 mg/dl Creatinine 0.58 mg/dl 0.50 mg/dl Estimated GFR () 123.7 129.9 Estimated GFR (Non- 106.7 112.1 BUN/Creatinine Ratio 25.1 26.1 Random Glucose 168 mg/dl 115 mg/dl Calcium Level 7.2 mg/dl 7.2 mg/dl Magnesium Level 1.7 mg/dl Total Bilirubin 1.0 mg/dl 1.0 mg/dl Direct Bilirubin 0.4 mg/dl Aspartate Amino Transf (AST/SGOT) 44 U/L 41 U/L Alanine Aminotransferase (ALT/SGPT) 41 U/L 37 U/L Alkaline Phosphatase 230 U/L 249 U/L Ammonia 172.0 umol/L 112.1 umol/L Total Protein 5.9 gm/dl 5.4 gm/dl Albumin 2.8 gm/dl 2.6 gm/dl Bedside Glucose 124 mg/dl 197 mg/dl Est Creatinine Clear Calc Drug Dose 150.9 ml/min Globulin 2.8 gm/dl Albumin/Globulin Ratio 0.9 Assessment and Plan 51 F who presents with toxic encephalopathy form elevated ammonia, has a PMHx of liver cirrhosis, T2DM, hypothyroidism, seizure disorder, migraines, asthma, parkinsonism, bipolar disorder, depression, chronic pancytopenia, and GERD Altered mental status: CT head negative. Toxic encephalopathy, hepatic encephalopathy` secondary to elevated ammonia (see below) Liver cirrhosis. chronic pancytopenia: Chronically elevated ammonia level- usually in 60's-70's now 172 at admission. lactulose and rifaximin T2DM- ha1c 4.8% on 12/2016: Continue Lantus + ISS with BSG ACHS Hypothyroidism: stable with levothyroxine Bipolar disorder, depression:maintained on sertraline and mirtazapine Seizure disorder and h/o migraines: Controlled with levetiracetam, Trileptal, Topamax and Maxalt PRN Asthma: Continue Ventolin and Symbicort GERD: Continue pantoprazole DVT prophylaxis: SCDs, Heparin SC Code Status: LEVEL I, FULL Dispo: From home, lives w/ - CM consulted
[2017-08-13] MEDS ORDERED: GLUCAGON FOR INJ 1 MG VIAL SQ PRN (19:15)
[2017-08-13] MEDS: TOPIRAMATE 25 MG TAB PO SCH (22:03)
[2017-08-13] MEDS: MIRTAZAPINE TAB 15 MG TAB PO SCH (22:03)
[2017-08-13] MEDS: hydrOXYzine HCL 25 MG TAB PO SCH (22:04)
[2017-08-13] MEDS: RIZATRIPTAN BENZOATE 10 MG TAB PO PRN (22:05)
[2017-08-13 23:29] VITALS: BP 125/70; PULSE 79; TEMP 36.8; O2SAT 98
[2017-08-14] MEDS: LEVOTHYROXINE 75 MCG TAB PO SCH (05:53)
[2017-08-14 06:07] LABS: ALBUMIN 2.9 gm/dl (3.4-5.0); CALCIUM 7.8 mg/dl (8.5-10.1); CREATININE 0.52 mg/dl (0.60-1.20); POTASSIUM 3.9 mmol/L (3.5-5.1)
[2017-08-14 06:20] LABS: TOTAL PROTEIN 5.8 gm/dl (6.4-8.2)
[2017-08-14 06:55] VITALS: BP 112/67; PULSE 79; TEMP 36.6; O2SAT 98
[2017-08-14] MEDS: HEPARIN SOD 5000 UNIT/0.5 ML CARP SQ SCH ×2 (07:08→20:58)
[2017-08-14] MEDS: POLYETHYLENE (MIRALAX) 17 GM PACK PO SCH (07:12)
[2017-08-14] MEDS: LACTULOSE SYRUP 20 GM/30 ML UDC PO SCH ×4 (07:21→21:24)
[2017-08-14] MEDS: SERTRALINE HCL 50 MG TAB PO SCH (07:22)
[2017-08-14] MEDS: PANTOprazole SOD 40 MG TAB PO SCH (07:22)
[2017-08-14] MEDS: CHOLECALCIFEROL 1000 INTER.UNIT TAB PO SCH (07:22)
[2017-08-14] MEDS: RIFAXIMIN TAB 550 MG TAB PO SCH ×2 (07:22→21:26)
[2017-08-14] MEDS: TOPIRAMATE 100 MG TAB PO SCH (07:22)
[2017-08-14] MEDS: OXCARBAZEPINE 150 MG TAB PO SCH ×2 (07:22→21:29)
[2017-08-14] MEDS: MULTIVITAMIN TAB PO SCH (07:23)
[2017-08-14] MEDS: MAGNESIUM OXIDE 400 MG TAB PO SCH ×2 (07:23→21:28)
[2017-08-14] MEDS: SPIRONOLACTONE 25 MG TAB PO SCH (07:23)
[2017-08-14] MEDS: LEVETIRACETAM 500 MG TAB PO SCH ×2 (07:23→21:30)
[2017-08-14] MEDS: INSULIN ASPART 100 UNITS/ML 3 ML PEN SC SCH ×4 (08:02→20:56)
[2017-08-14] MEDS: INSULIN GLARGINE SOLOSTAR 100 UNITS/ML 3 ML PEN SC SCH ×2 (08:03→20:58)
--- NOTE | 2017-08-14 10:37 | Gastrointestinal Consultation ---
Gastrointestinal Consultation Date of Consultation: August 14, 2017 Attending Physician: Dr. Vera/Dr. Rice Consulting Physician: Dr. Moscoso Reason for Consultation: Elevated ammonia despite lactulose and xifaxan History of Present Illness Patient is a 51 year old female with a hx of asthma, bipolar disease, migraines , DM-2, gastroparesis, NAFLD cirrhosis with prior hepatic encephalopathy was admitted as he thought she experienced seizure. GI is consulted because Ms. Munson's ammonia level is increased. She is maintained on Xifaxin 550mg BID and lactulose QID. Of note, her who is with her says that he had not been giving the lactulose after Charline's discharge Tuesday 08/08 through her readmission yesterday. She a period of constipation w/o a BM from Friday through Friday and passed several large formed BMs Friday. She was restarted on the lactulose yesterday on arrival and has passed two loose BMs thus far this morning. This morning, she is sitting up in a chair, awake but appears mildly lethargic, dull affect. Answers specific question with simple answer, but her typically answers for her. She did speak up, indicating that she needed to go to the [facility] and did push the call [facility]. Ammonia on arrival 172, today 176. AST 59, Alk Phos 285. T Bili and creatinine are normal. Past Medical/Surgical History Past Medical History: 1. DM-2 2. Seizure disorder 3 NAFLD cirrhosis, prior hepatic encephalopathy, chronic ammonia elevation 4. Gastroparesis Past Surgical History: (1) H/O nasal septoplasty (2) History of appendectomy (3) History of cholecystectomy (4) History of hysterectomy (5) History of kyphoplasty (6) History of tonsillectomy (7) s/p spinal stimulator placement Family History Depression Hypertension Social History Smoking Status: Never Smoker Alcohol Use: none Drug Use: none Marital Status: Housing Status: lives with family Occupation Status: disabled Allergies Coded Allergies: Amoxicillin (Verified Allergy, Intermediate, HIVES; Has tolerated cephalosporins (Rocephin, Ceftin,Keflex, 08/13/17) Azithromycin (Verified Allergy, Intermediate, HIVES, 08/13/17) Baclofen (Verified Allergy, Intermediate, RASH, 08/13/17) Butalbital (Verified Allergy, Intermediate, HIVES, 08/13/17) Clarithromycin (Verified Allergy, Intermediate, RASH, 08/13/17) Dicyclomine (Verified Allergy, Intermediate, HIVES, 08/13/17) HIVES Penicillins (Verified Allergy, Intermediate, RASH; has tolerated cephs ( Rocephin, Keflex, Ceftin), 08/13/17) PT STATES SHE GETS WELTS FROM CIPRO,LEVAQUIN ALLERGY PER DR ROBLES Tetracyclines (Verified Allergy, Intermediate, DOXYCYCLINE-HIVES, 08/13/17) Sulindac (Verified Allergy, Mild, ALLERGY LISTED "CLONDORAL"--HIVES, ) Adhesives (Verified Allergy, Unknown, RASH, DUODERM=RED,ITCHY, 08/13/17) PLASTIC TAPE IS OK!!! DUODERM=RED,ITCHY Clavulanic Acid (Verified Allergy, Unknown, diahrea , 08/13/17) Metronidazole (Verified Allergy, Unknown, SEIZURE, 08/13/17) Tramadol (Verified Allergy, Unknown, SEIZURES, 08/13/17) Furosemide (Verified Adverse Reaction, Severe, HIVES, 08/13/17) Metoclopramide (Verified Adverse Reaction, Severe, SEIZURES, 08/13/17) Insulin Aspart (Verified Adverse Reaction, Intermediate, NO ALLERGY!!!!!! , 08/13/17) PT SAYS HER INSURANCE (EVEN WHILE HOSPITALIZED) WILL NOT PAY FOR NOVOLOG!! ONLY HUMALOG!!! Blueberry (Verified Adverse Reaction, Mild, STOMACH PAIN, 08/13/17) Current Medications Home Meds and Scripts Medications Dose Route/Sig Max Daily Dose Days Date Category Dose Instructions Promethazine HCl 25 Mg Tab 25 Mg PO UD 07/26/17 Reported Topamax (Topiramate) 100 Mg Tab 100 Mg PO QAM 07/26/17 Reported Advil (Ibuprofen) 200 Mg Tab 400 Mg PO UD 07/22/17 Reported Mirtazapine 15 Mg Tab 45 Mg PO HS 07/22/17 Reported Zofran Odt (Ondansetron HCl) 8 Mg Soltab 8 Mg SL Q6H PRN 07/14/17 Reported Zoloft (Sertraline HCl) 50 Mg Tab 100 Mg PO QAM 07/14/17 Reported Roxicodone Ir (Oxycodone HCl) 5 Mg Tab 5 Mg PO Q12H PRN 07/14/17 Reported Vistaril (Hydroxyzine Pamoate) 50 Mg Cap 50 Mg PO HS 07/14/17 Reported Aldactone (Spironolactone) 25 Mg Tab 50 Mg PO QAM 07/14/17 Reported PER "DON'T REALLY USE" Lantus Solostar (Insulin Glargine) 100 Unit/Ml Inj 40 Units SC BID 07/14/17 Reported Vitamin A 8,000 Unit Cap 1 Cap PO QAM 04/12/17 Reported Maxalt (Rizatriptan Benzoate) 10 Mg Tab 10 Mg PO DIRECTED PRN 04/03/17 Reported Multivitamin (Multivitamins) Tab 1 Tab PO QAM 03/24/17 Reported Magnesium (Magnesium Oxide (Mg Supplement) 500 Mg Tab 500 Mg PO BID 03/24/17 Reported Chronulac (Lactulose) 10 Gm/15 Ml Syrp 15 Ml PO QAM PRN 02/28/17 Reported titrate to maintain 2-3 bowel mvmts daily Trileptal (Oxcarbazepine) 300 Mg Tab 300 Mg PO BID 02/05/17 Reported Cranberry Extract (Cranberry (Vaccinium Macrocarp) 200 Mg Cap 1 Cap PO BID 02/05/17 Reported Vitamin D (Cholecalciferol) 1,000 Unit Tab 5,000 Units PO QAM 01/13/17 Reported Vitamin C (Ascorbic Acid) 1,000 Mg Tab 1,000 Mg PO QAM 12/14/16 Reported Levetiracetam 1,000 Mg Tab 2,000 Mg PO BID 12/13/16 Reported Topamax (Topiramate) 25 Mg Tab 75 Mg PO QPM 12/13/16 Reported Humalog Kwikpen (Insulin Lispro (Human)) 100 Unit/Ml Inj 20 Units SC AC 06/18/16 Reported PLUS SLIDING SCALE Prilosec (Omeprazole) 20 Mg Capcr 20 Mg PO QAM 05/22/16 Reported Zinc (Zinc Gluconate) 50 Mg Tab 50 Mg PO BID 08/22/15 Reported Levothyroxine Sodium 75 Mcg Tab 75 Mcg PO QAM 06/20/15 Reported Xifaxan (Rifaximin) 550 Mg Tab 550 Mg PO BID 05/31/15 Reported Probiotic (Probiotic Product) 1 Cap Cap 1 Cap PO QAM 12/13/13 Reported Review of Systems Constitutional: + weakness (chronic), No fever, No chills, No sweats, No weight loss Eyes: No eye pain, No redness ENT: No sore throat, No trouble swallowing, No pain on swallowing Respiratory: No cough, No wheezing, No shortness of breath, No dyspnea on exertion Cardiac: No chest pain, No edema, No palpitations Abdomen: + see HPI Neuro: + problem reported (question of seizure prior to admission), No memory loss, No weakness, No numbness/tingling, No vertigo, No balance problems Psych: No depression symptoms, No anxiety, No insomnia Heme: No abnormal bleeding/bruising, No night sweats Endo: + fatigue, No excessive thirst, No excessive urination Skin: No rash, No itch, No new/changing skin lesions, No jaundice Physical Exam Date Time Temp Pulse Resp B/P (MAP) Pulse Ox O2 Delivery O2 Flow Rate FiO2 08/14/17 08:00 Room Air 08/14/17 06:55 36.6 79 18 112/67 (82) 98 Room Air 08/14/17 00:00 Room Air 08/13/17 23:29 36.8 79 20 125/70 (88) 98 Room Air 08/13/17 16:00 Room Air 08/13/17 15:02 36.8 79 18 145/75 (98) 98 General Appearance: no apparent distress, + obese Eyes: normal inspection, EOMI Neck: supple, no adenopathy, thyroid normal Respiratory/Chest: chest non-tender, lungs clear, normal breath sounds, no accessory muscle use Cardiovascular: regular rate, rhythm, no JVD, no murmur Abdomen: normal bowel sounds, non tender, soft, no organomegaly Extremities: normal inspection, no pedal edema, normal capillary refill Neurologic/Psych: oriented x 3, + pertinent finding (dull affect) Skin: normal color, no jaundice, warm/dry, no rash Laboratory Results Last 24 Hours Test 08/13/17 11:10 08/13/17 16:34 08/13/17 20:12 08/14/17 05:30 Bedside Glucose 197 mg/dl 103 mg/dl 163 mg/dl Sodium Level 141 mmol/L Potassium Level 3.9 mmol/L Chloride Level 111 mmol/L Carbon Dioxide Level 23 mmol/L Anion Gap 8.0 mmol/L Blood Urea Nitrogen 7 mg/dl Creatinine 0.52 mg/dl Est Creatinine Clear Calc Drug Dose 145.1 ml/min Estimated GFR () 128.2 Estimated GFR (Non- 110.6 BUN/Creatinine Ratio 14.0 Random Glucose 91 mg/dl Calcium Level 7.8 mg/dl Total Bilirubin 0.9 mg/dl Aspartate Amino Transf (AST/SGOT) 59 U/L Alanine Aminotransferase (ALT/SGPT) 46 U/L Alkaline Phosphatase 285 U/L Ammonia 127.0 umol/L Total Protein 5.8 gm/dl Albumin 2.9 gm/dl Globulin 2.9 gm/dl Albumin/Globulin Ratio 1.0 Test 08/14/17 07:22 Bedside Glucose 93 mg/dl Impression Patient is a 51 year old female with chronically elevated ammonia. Unsure if this represents hepatic encephalopathy vs. abnormalities in affect from mental illness with slight recent worsening. Plan 1. Xifaxin and Lactulose as ordered. 2. Her chronic NALFD cirrhosis seems fairly stable at this time. Would defer CXR , blood and urine culture as no obvious signs of hepatic encephalopathy, other than increase in her chronic ammonia elevation. No further GI recommendations at this time. I performed a history and physical examination of the patient, including specifically AOx3, no evidence of encephalopathy. I have discussed the patient' s management with Nelly Suarez. Please refer to the [facility] SALESPERSON's note for the documented findings and plan of care. Patient with compensated Liver cirrhosis, no evidence of advanced stage Hepatic encephalopathy now. Continue Lactulose and Xifaxan. Avoid Opioids and correct electrolytes as needed. Recall GI if needed.
--- NOTE | 2017-08-14 12:36 | Progress Note ---
Subjective Date of Service: August 14, 2017. Subjective this pt is more awake and alert despite her ammonia being slightly elevated from yesterday her is at the bedside and relates his struggles with her taking lactulose at home and dealing with diarrhea Della had asked for 3 maxalt a day, and her corrected her that she should only take 1 a day at most Problem List Medical Problems: (1) Acute bronchitis Status: Acute (2) Acute bronchitis Status: Acute (3) Acute hepatic encephalopathy Status: Acute (4) Alkaline phosphatase elevation Status: Acute (5) Altered mental status Status: Acute (6) Anemia Status: Acute (7) Back pain Status: Acute (8) Bradycardia Status: Acute (9) Breakthrough seizure Status: Acute (10) Burn Status: Acute (11) Change in mental status Status: Acute (12) Change in mental status Status: Acute (13) Change in mental status Status: Acute (14) Change in mental status Status: Acute (15) Chronic low back pain Status: Acute (16) Chronic low back pain Status: Acute (17) Closed head injury Status: Acute (18) Dehydration Status: Acute (19) Dehydration Status: Acute (20) Diarrhea Status: Acute (21) Dizziness Status: Acute (22) Facial laceration Status: Acute (23) Failure of outpatient treatment Status: Acute (24) Fall Status: Acute (25) Fall Status: Acute (26) Fall Status: Acute (27) Fatigue Status: Acute (28) Head trauma Status: Acute (29) Hemorrhoid Status: Acute (30) Hepatic encephalopathy Status: Acute (31) Hepatic encephalopathy Status: Acute (32) Hepatic encephalopathy Status: Acute (33) Hepatic encephalopathy Status: Acute (34) Hepatic encephalopathy Status: Acute (35) Hepatic encephalopathy Status: Acute (36) Hepatic encephalopathy Status: Acute (37) Hepatic encephalopathy Status: Acute (38) Hepatic encephalopathy Status: Acute (39) Hepatic encephalopathy Status: Acute (40) Hepatic encephalopathy Status: Acute (41) Hepatic encephalopathy Status: Acute (42) Hepatic encephalopathy Status: Acute (43) Hepatic encephalopathy Status: Acute (44) Hepatic encephalopathy Status: Acute (45) Hepatic encephalopathy Status: Acute (46) Hyperammonemia Status: Acute (47) Hyperammonemia Status: Acute (48) Hyperammonemia Status: Acute (49) Hyperammonemia Status: Acute (50) Hypocalcemia Status: Acute (51) Hypocalcemia Status: Acute (52) Hypocalcemia Status: Acute (53) Hypokalemia Status: Acute (54) Hypokalemia Status: Acute (55) Hypokalemia Status: Acute (56) Hypomagnesemia Status: Acute (57) Increased ammonia level Status: Acute (58) Intertrochanteric fracture of left femur Status: Acute (59) Left foot pain Status: Acute (60) Left shoulder pain Status: Acute (61) Leukopenia Status: Acute (62) Lightheaded Status: Acute (63) Low back pain Status: Acute (64) Malingering Status: Acute (65) Medical non-compliance Status: Acute (66) Migraine Status: Acute (67) Nausea Status: Acute (68) Nausea Status: Acute (69) Nausea Status: Acute (70) Nausea Status: Acute (71) Nausea & vomiting Status: Acute (72) Noncompliance Status: Acute (73) Noncompliance with medication regimen Status: Acute (74) Noncompliance with medications Status: Acute (75) Pain in pelvis Status: Acute (76) Pain, joint, ankle, right Status: Acute (77) Pancytopenia Status: Acute (78) Persistent vomiting Status: Acute (79) Post-operative pain Status: Acute (80) Request for narcotic pain medication Status: Acute (81) Right ear pain Status: Acute (82) Right groin pain Status: Acute (83) Right hip pain Status: Acute (84) Right upper lobe pneumonia Status: Acute (85) RUQ abdominal pain Status: Acute (86) Seizure Status: Acute (87) Sepsis Status: Acute (88) UTI (urinary tract infection) Status: Acute (89) Vomiting Status: Acute (90) Weakness Status: Acute (91) Weakness Status: Acute (92) Weakness Status: Acute (93) Weakness Status: Acute Review of Systems Constitutional: + weakness, + fatigue, No fever, No chills Respiratory: No cough, No shortness of breath Cardiac: No chest pain, No edema Abdomen: + diarrhea, No pain, No vomiting, No constipation Neurologic: + weakness, + balance problems, No memory loss Objective Vital Signs Date Time Temp Pulse Resp B/P (MAP) Pulse Ox O2 Delivery O2 Flow Rate FiO2 08/14/17 08:00 Room Air 08/14/17 06:55 36.6 79 18 112/67 (82) 98 Room Air 08/14/17 00:00 Room Air 08/13/17 23:29 36.8 79 20 125/70 (88) 98 Room Air 08/13/17 16:00 Room Air 08/13/17 15:02 36.8 79 18 145/75 (98) 98 Physical Exam General Appearance: WD/WN, + mild distress Eyes: normal inspection, sclerae normal Neck: supple, no JVD Respiratory/Chest: chest non-tender, lungs clear, normal breath sounds Cardiovascular: regular rate, rhythm, no murmur Abdomen: normal bowel sounds, non tender, soft Extremities: no pedal edema, no calf tenderness Neurologic/Psychiatric: alert, oriented x 3 Laboratory Results Last 24 Hours Test 08/13/17 16:34 08/13/17 20:12 08/14/17 05:30 08/14/17 07:22 Bedside Glucose 103 mg/dl 163 mg/dl 93 mg/dl Sodium Level 141 mmol/L Potassium Level 3.9 mmol/L Chloride Level 111 mmol/L Carbon Dioxide Level 23 mmol/L Anion Gap 8.0 mmol/L Blood Urea Nitrogen 7 mg/dl Creatinine 0.52 mg/dl Est Creatinine Clear Calc Drug Dose 145.1 ml/min Estimated GFR () 128.2 Estimated GFR (Non- 110.6 BUN/Creatinine Ratio 14.0 Random Glucose 91 mg/dl Calcium Level 7.8 mg/dl Total Bilirubin 0.9 mg/dl Aspartate Amino Transf (AST/SGOT) 59 U/L Alanine Aminotransferase (ALT/SGPT) 46 U/L Alkaline Phosphatase 285 U/L Ammonia 127.0 umol/L Total Protein 5.8 gm/dl Albumin 2.9 gm/dl Globulin 2.9 gm/dl Albumin/Globulin Ratio 1.0 Test 08/14/17 11:21 Bedside Glucose 137 mg/dl Assessment and Plan 51 F who presents with toxic encephalopathy form elevated ammonia, has a PMHx of liver cirrhosis, T2DM, hypothyroidism, seizure disorder, migraines, asthma, parkinsonism, bipolar disorder, depression, chronic pancytopenia, and GERD Altered mental status: CT head negative. Toxic encephalopathy, hepatic encephalopathy` secondary to elevated ammonia continue to reinforce good medicine compliance, GI medicine does not feel slight increase in ammonia is significant given her improved mental status Liver cirrhosis. chronic pancytopenia: Chronically elevated ammonia level- usually in 60's-70's now 172 at admission. lactulose and rifaximin continue T2DM- ha1c 4.8% on 12/2016: Continue Lantus + ISS with BSG ACHS Hypothyroidism: stable with levothyroxine Bipolar disorder, depression:maintained on sertraline and mirtazapine Seizure disorder and h/o migraines: is concernd she did have seizure at home, supposed to be taking, levetiracetam, Trileptal, Topamax and Maxalt PRN, given her compliance with her lactulose brings concern with compliance with all meds Secondary gain, pt seems to seek out the ill condition at times manipulating her medications to induce decline of her controlled medical issues Asthma: Continue Ventolin and Symbicort GERD: Continue pantoprazole DVT prophylaxis: SCDs, Heparin SC Code Status: LEVEL I, FULL Dispo: From home, lives w/ - CM consulted
[2017-08-14 14:30] VITALS: BP 141/82; PULSE 89; TEMP 37; O2SAT 94
[2017-08-14 20:00] VITALS: O2SAT 94
[2017-08-14] MEDS: RIZATRIPTAN BENZOATE 10 MG TAB PO PRN (21:26)
[2017-08-14] MEDS: hydrOXYzine HCL 25 MG TAB PO SCH (21:27)
[2017-08-14] MEDS: MIRTAZAPINE TAB 15 MG TAB PO SCH (21:28)
[2017-08-14] MEDS: TOPIRAMATE 25 MG TAB PO SCH (21:30)
[2017-08-15] VITALS: O2SAT 94
[2017-08-15 01:28] VITALS: BP 129/72; PULSE 73; TEMP 36.9; O2SAT 96
[2017-08-15 06:22] LABS: ALBUMIN 2.8 gm/dl (3.4-5.0); CALCIUM 8.1 mg/dl (8.5-10.1); CREATININE 0.53 mg/dl (0.60-1.20); POTASSIUM 3.8 mmol/L (3.5-5.1)
[2017-08-15] MEDS: LEVOTHYROXINE 75 MCG TAB PO SCH (06:30)
[2017-08-15 07:46] VITALS: BP 137/77; PULSE 78; TEMP 36.9; O2SAT 96
[2017-08-15] MEDS: HEPARIN SOD 5000 UNIT/0.5 ML CARP SQ SCH (08:46)
[2017-08-15] MEDS: POLYETHYLENE (MIRALAX) 17 GM PACK PO SCH (08:48)
[2017-08-15] MEDS: TOPIRAMATE 100 MG TAB PO SCH (08:49)
[2017-08-15] MEDS: PANTOprazole SOD 40 MG TAB PO SCH (08:50)
[2017-08-15] MEDS: CHOLECALCIFEROL 1000 INTER.UNIT TAB PO SCH (08:50)
[2017-08-15] MEDS: MULTIVITAMIN TAB PO SCH (08:50)
[2017-08-15] MEDS: LACTULOSE SYRUP 20 GM/30 ML UDC PO SCH ×2 (08:50→12:34)
[2017-08-15] MEDS: LEVETIRACETAM 500 MG TAB PO SCH (08:50)
[2017-08-15] MEDS: RIFAXIMIN TAB 550 MG TAB PO SCH (08:50)
[2017-08-15] MEDS: SERTRALINE HCL 50 MG TAB PO SCH (08:50)
[2017-08-15] MEDS: OXCARBAZEPINE 150 MG TAB PO SCH (08:50)
[2017-08-15] MEDS: SPIRONOLACTONE 25 MG TAB PO SCH (08:50)
[2017-08-15] MEDS: MAGNESIUM OXIDE 400 MG TAB PO SCH (08:50)
[2017-08-15] MEDS: INSULIN ASPART 100 UNITS/ML 3 ML PEN SC SCH ×2 (08:55→12:38)
[2017-08-15] MEDS: INSULIN GLARGINE SOLOSTAR 100 UNITS/ML 3 ML PEN SC SCH (08:56)
[2017-08-15] MEDS ORDERED: LACT10SO17 PO (12:08)
[2017-08-15] MEDS ORDERED: RIZA10TA18 PO (12:08)
--- NOTE | 2017-08-15 12:13 | Discharge Instructions ---
Discharge Instructions Date of Service August 15, 2017. Admission Reason for Admission: Hepatic Encephalopathy Discharge Discharge Diagnosis / Problem: hepatic encephalopathy Discharge Goals Goal(s): Diagnostic testing, Therapeutic intervention Activity Recommendations Activity Limitations: as noted below Lifting Limitations: gradually increase as tolerated . Instructions / Follow-Up Instructions / Follow-Up please always take at least 2 doses of lactulose daily, please take more if you don't have 2 bowel movements a day Please do not take medications that are not continued on your sheet this also includes over the counter medications, if you have a question about taking a med please contact your primary care before taking it Current Hospital Diet Patient's current hospital diet: AHA Diet (Heart Healthy) Discharge Diet Recommended Diet: Regular Diet Pending Studies Studies pending at discharge: no Medical Emergencies . Who to Call and When: Medical Emergencies: If at any time you feel your situation is an emergency, please call 911 immediately. . Non-Emergent Contact Non-Emergency issues call your: Primary Care Provider Call Non-Emergent contact if: temperature is above 101 . . "Provider Documentation" section prepared by Erick Rice. .
[2017-08-15 12:45] VITALS: BP 137/77; PULSE 78; TEMP 36.9; O2SAT 96
--- NOTE | 2017-08-15 15:20 | Progress Note ---
Progress Note Date of Service August 15, 2017. Progress Note Was contacted by [employer] for possible body fluid exposure from this patient's serology from the evening of 14 August. i was requested by [employer] to phone the patient in an attempt to gain verbal consent for testing as the patient was discharged from our facility. I phone the number available in the demographic section for her home phone and did leave a detailed message including a call back number for [employer]. If the patient does not return phone calls building her unreachable and proceed with testing for employee safety.
--- NOTE | 2017-08-15 17:36 | Discharge Summary ---
Discharge Summary Date of Service August 15, 2017. Discharge Summary Admission Date: August 13, 2017 at 04:17 Discharge Date: August 15, 2017 Discharge Disposition: Home Principal Diagnosis: hepatic encephalopathy Immunizations: Have You Had Influenza Vaccine: Yes Influenza Vaccine Date: Feb 02, 2013 History of Tetanus Vaccine?: utd Tetanus Immunization Date: Jun 11, 2008 History of Pneumococcal: SEE LAST PACKET Pneumococcal Date: Nov 13, 2008 History of Hepatitis B Vaccine: Unknown Hepatitis Immunization Date: Jan 12, 1996 Medication Reconciliation Changed Medications: Lactulose (Chronulac) 10 Gm/15 Ml Syrp 15 ML PO BID, #1 LITER 4 Refills (Changed from: QAM; Removed Reason; Refills: ; titrate to maintain 2-3 bowel mvmts daily) at least 2 doses a day may take more to have 2-3 bowel mvmts daily Rizatriptan Benzoate (Maxalt) 10 Mg Tab 10 MG PO DIRECTED PRN for Migraine, #1 TAB (Medication details modified) no more than one each 24 hours Continued Medications: Cholecalciferol (Vitamin D) 1,000 Unit Tab 5000 UNITS PO QAM Cranberry (Vaccinium Macrocarp (Cranberry Extract) 200 Mg Cap 1 CAP PO BID Ibuprofen (Advil) 200 Mg Tab 400 MG PO UD Insulin Glargine (Lantus Solostar) 100 Unit/Ml Inj 40 UNITS SC BID Insulin Lispro (Human) (Humalog Kwikpen) 100 Unit/Ml Inj 20 UNITS SC AC PLUS SLIDING SCALE Levetiracetam (Levetiracetam) 1,000 Mg Tab 2000 MG PO BID Levothyroxine Sodium (Levothyroxine Sodium) 75 Mcg Tab 75 MCG PO QAM Magnesium Oxide (Mg Supplement (Magnesium) 500 Mg Tab 500 MG PO BID Mirtazapine (Mirtazapine) 15 Mg Tab 45 MG PO HS Multivitamin (Multivitamin) Tab 1 TAB PO QAM Omeprazole (Prilosec) 20 Mg Capcr 20 MG PO QAM Ondansetron Odt (Zofran Odt) 8 Mg Soltab 8 MG SL Q6H PRN for Nausea, TAB Oxcarbazepine (Trileptal) 300 Mg Tab 300 MG PO BID Probiotic Product (Probiotic) 1 Cap Cap 1 CAP PO QAM Rifaximin (Xifaxan) 550 Mg Tab 550 MG PO BID Sertraline (Zoloft) 50 Mg Tab 100 MG PO QAM Spironolactone (Aldactone) 25 Mg Tab 50 MG PO QAM PER "DON'T REALLY USE" Topiramate (Topamax ) 25 Mg Tab 75 MG PO QPM Topiramate (Topamax) 100 Mg Tab 100 MG PO QAM, TAB Zinc Gluconate (Zinc) 50 Mg Tab 50 MG PO BID Discontinued Medications: Ascorbic Acid (Vitamin C) 1,000 Mg Tab 1000 MG PO QAM Hydroxyzine Pamoate (Vistaril) 50 Mg Cap 50 MG PO HS Oxycodone Ir (Roxicodone Ir) 5 Mg Tab 5 MG PO Q12H PRN for Pain, TAB Promethazine HCl (Promethazine HCl) 25 Mg Tab 25 MG PO UD Vitamin A (Vitamin A) 8,000 Unit Cap 1 CAP PO QAM Discharge Exam Review of Systems: Constitutional: No fever, No chills Respiratory: No cough, No shortness of breath, No dyspnea on exertion Cardiovascular: No chest pain, No edema Abdomen: No pain, No nausea, No vomiting, No diarrhea Musculoskeletal: No joint pain, No muscle pain, No swelling Genitourinary - Male: No hematuria, No dysuria, No urinary hesitancy Physical Exam: General Appearance: WD/WN Eyes: PERRL, EOMI Neurologic/Psychiatric: alert, oriented x 3 Hospital Course 51 F who presents with toxic encephalopathy form elevated ammonia, has a PMHx of liver cirrhosis, T2DM, hypothyroidism, seizure disorder, migraines, asthma, parkinsonism, bipolar disorder, depression, chronic pancytopenia, and GERD Altered mental status: CT head negative. Toxic encephalopathy, hepatic encephalopathy` secondary to elevated ammonia continue to reinforce good medicine compliance, GI medicine does not feel slight increase in ammonia is significant given her improved mental status Liver cirrhosis. chronic pancytopenia: Chronically elevated ammonia level- usually in 60's-70's now 172 at admission. lactulose and rifaximin continue ammonia has reduced T2DM- ha1c 4.8% on 12/2016: Continue home insulin doses Hypothyroidism: stable with levothyroxine Bipolar disorder, depression:maintained on sertraline and mirtazapine Seizure disorder and h/o migraines: is concerned she did have seizure at home, supposed to be taking, levetiracetam, Trileptal, Topamax and Maxalt PRN, given her compliance with her lactulose brings concern with compliance with all meds. she did ask for opiates prior to leaving, denied her request Secondary gain, pt seems to seek out the ill condition at times manipulating her medications to induce decline of her controlled medical issues Asthma: Continue Ventolin and Symbicort GERD: Continue pantoprazole DVT prophylaxis: SCDs, Heparin SC Code Status: LEVEL I, FULL Dispo: From home, lives w/ - CM consulted Total Time Spent: Greater than 30 minutes This includes examination of the patient, discharge planning, medication reconciliation, and communication with other providers. Discharge Instructions Please refer to the electronic Patient Visit Report (Discharge Instructions) for additional information.
== END 2017-08-15 14:26 | disposition home health service (06) ==
LOC: C.EDB 22:28 → C.4E 08-13 04:17 → ENRESERV 08-13 04:51 → C.MS2W 08-13 09:54
PROVIDERS: ADMIT Student in an Organized Health Care Education/Training Program; ATTEND Internal Medicine
DX: K72.90 Hepatic failure, unspecified without coma (principal); J45.909 Unspecified asthma, uncomplicated; F31.9 Bipolar disorder, unspecified; E11.9 Type 2 diabetes mellitus without complications; K74.69 Other cirrhosis of liver; E03.9 Hypothyroidism, unspecified; G40.909 Epilepsy, unspecified, not intractable, without status epilepticus; G20 Parkinson's disease; K21.9 Gastro-esophageal reflux disease without esophagitis; Z79.4 Long term (current) use of insulin; Z79.899 Other long term (current) drug therapy; Z90.89 Acquired absence of other organs; Z90.49 Acquired absence of other specified parts of digestive tract; Z90.710 Acquired absence of both cervix and uterus; Z82.49 Family history of ischemic heart disease and other diseases of the circulatory system; Z81.8 Family history of other mental and behavioral disorders; Z88.0 Allergy status to penicillin; Z88.1 Allergy status to other antibiotic agents; Z91.018 Allergy to other foods

== ENCOUNTER 2017-08-18 11:07 | Emergency (ER) | payer BC, OTHER ==
[~2017-08-18 11:07] MED LIST changes: -FRCT/ PO
[2017-08-18 11:13] VITALS: TEMP 36.9
[2017-08-18 11:18] VITALS: O2SAT 99
[2017-08-18] MEDS ORDERED: FRCT/ PO (11:50)
--- NOTE | 2017-08-18 12:15 | EMERGENCY ROOM VISIT NOTE ---
History First contact with patient: 11:30 Chief Complaint: SEIZURE Stated Complaint: QUIET SEIZURE Nursing Triage Summary: reporting, "silent seizure." History of Present Illness The patient is a 51 year old female who presents to the Emergency Room via private vehicle accompanied by male with complaints of "quite seizure". The male accompanying the patient notes that she has a history of seizures. She has been recently admitted for troubles with the liver/pneumonia. He notes that her last grand mal seizure was prior to admission. Since then she has been doing okay, and yesterday had to what he describes as quite like seizures with slight thickening of the head and extremities but not a true grand mal seizure. He states that she has had this numerous times before. Today while undergoing a DEXA scan, he notes that she became what was described as nearly unresponsive but states this is how frequent seizures/silent seizures present. She has been slight slightly groggy since then but notes that she is now coming to. He is concerned that perhaps it is a Fioricet which she gave her yesterday. She had a seizure each time yesterday after taking the medication. She had 2 seizures yesterday. Once a day. He notes that she is moving her bowels and urinating without difficulty. She has good appetite. He states that nothing today or yesterday as of the ordinary from her underlying medical condition but is concerned that the Fioricet which is began for her migraines could be causing the seizures. She sees Dr. Gonzalez for her seizures. Review of Systems A complete 10-point Review of Systems was discussed with the patient, with pertinent positives and negatives listed in the History of Present Illness. All remaining Review of Systems questions can be considered negative unless otherwise specified. Past Medical/Surgical History Medical Problems: (1) Asthma (2) Bipol I, Rec Epis (Or Current) Depressed, Unspecified (3) Borderline personality disorder (4) Cirrhosis (5) Closed right hip fracture (6) Depression (7) Diab Ashley Wo Comp Type Ii Or Nos/Not Uncontrolled (8) Diabetic gastroparesis (9) Heart murmur (10) History of hepatic encephalopathy (11) Hyponatremia (12) Hypothyroidism (13) Major depressive disorder with psychotic features (14) Migraines (15) Murmur (16) Myelodysplastic syndrome (17) Opiate abuse, continuous (18) Pancytopenia (19) Peptic ulcer disease (20) Portal Hypertension (21) Seizure disorder (22) Suicidal ideation (23) UTI (urinary tract infection) Surgical Problems: (1) H/O nasal septoplasty (2) History of appendectomy (3) History of cholecystectomy (4) History of hysterectomy (5) History of kyphoplasty (6) History of tonsillectomy (7) s/p spinal stimulator placement Family History Depression Hypertension Social History Smoking Status: Never Smoker Alcohol Use: none Drug Use: none Marital Status: Housing Status: lives with family Occupation Status: disabled Current/Historical Medications Scheduled Acetamin/Butalbital/Caffeine (Fioricet), 1 TAB PO UD Cholecalciferol (Vitamin D), 5,000 UNITS PO QAM Cranberry (Vaccinium Macrocarp (Cranberry Extract), 1 CAP PO BID Ibuprofen (Advil), 400 MG PO UD Insulin Glargine (Lantus Solostar), 40 UNITS SC BID Insulin Lispro (Human) (Humalog Kwikpen), 20 UNITS SC AC Lactulose (Chronulac), 15 ML PO BID Levetiracetam (Levetiracetam), 2,000 MG PO BID Levothyroxine Sodium (Levothyroxine Sodium), 75 MCG PO QAM Magnesium Oxide (Mg Supplement (Magnesium), 500 MG PO BID Mirtazapine (Mirtazapine), 45 MG PO HS Multivitamin (Multivitamin), 1 TAB PO QAM Omeprazole (Prilosec), 20 MG PO QAM Oxcarbazepine (Trileptal), 600 MG PO BID Probiotic Product (Probiotic), 1 CAP PO QAM Rifaximin (Xifaxan), 550 MG PO BID Sertraline (Zoloft), 100 MG PO QAM Spironolactone (Aldactone), 50 MG PO QAM Topiramate (Topamax ), 75 MG PO QPM Topiramate (Topamax), 100 MG PO QAM Zinc Gluconate (Zinc), 50 MG PO BID Scheduled PRN Ondansetron Odt (Zofran Odt), 8 MG SL Q6H PRN for Nausea Rizatriptan Benzoate (Maxalt), 10 MG PO DIRECTED PRN for Migraine Physical Exam Vital Signs Date Time Temp Pulse Resp B/P (MAP) Pulse Ox O2 Delivery O2 Flow Rate FiO2 08/18/17 15:22 82 18 140/73 95 Room Air 08/18/17 14:01 78 18 131/72 98 Room Air 08/18/17 12:07 78 08/18/17 11:18 99 Room Air 08/18/17 11:13 36.9 78 20 158/62 99 Room Air Physical Exam VITAL SIGNS - Vital signs and nursing notes were reviewed. Stable. GENERAL -51-year-old female appearing her stated age who is in no acute distress. Communicates well with provider and answers questions appropriately. SKIN - Without rashes. No meningeal or petechial rash. HEAD - NC/AT. EYES - PERRL with EOMI bilaterally. Sclera anicteric. EARS - No deformities of external structures noted on gross examination bilaterally. External auditory canals without discharge or otorrhea. Tympanic membranes pearly jorgensen without retraction or bulging. No fluid or purulent material visualized behind the TM. Handle of malleus, umbo, cone of light, pars tensa/flaccid all easily visualized. NOSE - Midline and without cyanosis. No epistaxis or purulent drainage noted. MOUTH/OROPHARYNX - Without perioral cyanosis. Buccal mucosa pink and moist and without leukoplakia. Tongue midline with equal elevation of palate bilaterally. No tonsillar hypertrophy, erythema, or exudates noted. Fair dentition noted. NECK - Neck with FROM. Supple to palpation. No lymphadenopathy noted. No nuchal rigidity. LUNGS - Chest wall symmetric without accessory muscle use, intercostals retractions, or central cyanosis. Normal vesicular breath sounds CTA B/L. No wheezes, rales, or rhonchi appreciated. CARDIAC - RRR with S1/S2. No murmur, rubs, or gallops appreciated. ABDOMEN - Abdominal contour normal without pulsations or visible masses. BS normoactive all four quadrants. No tenderness, palpable masses, hepatosplenomegaly, or ascites noted. EXTREMITIES - No clubbing or peripheral cyanosis. No pretibial edema present. +5 /5 strength noted in UE/LE bilaterally. NEUROLOGIC - Cranial nerves II through XII grossly intact. Sensory intact to light touch throughout. PSYCH - A&O, and cooperates fully with examiner. Pt is very pleasant and interacts well with examiner. Medical Decision & Procedures Laboratory Results 08/18/17 12:30 Red Blood Count 2.86, Mean Corpuscular Volume 99.3, Mean Corpuscular Hemoglobin 35.0, Mean Corpuscular Hemoglobin Concent 35.2, Mean Platelet Volume 10.0, Neutrophils (%) (Auto) 57.4, Lymphocytes (%) (Auto) 28.4, Monocytes (%) (Auto) 7.1, Eosinophils (%) (Auto) 6.4, Basophils (%) (Auto) 0.7, Neutrophils # (Auto) 2.34, Lymphocytes # (Auto) 1.16, Monocytes # (Auto) 0.29, Eosinophils # (Auto) 0.26, Basophils # (Auto) 0.03 08/18/17 12:30 Test 08/18/17 12:30 08/18/17 13:11 08/18/17 14:39 White Blood Count 4.08 K/uL (4.8-10.8) Red Blood Count 2.86 M/uL (4.2-5.4) Hemoglobin 10.0 g/dL (12.0-16.0) Hematocrit 28.4 % (37-47) Mean Corpuscular Volume 99.3 fL (80-100) Mean Corpuscular Hemoglobin 35.0 pg (25-34) Mean Corpuscular Hemoglobin Concent 35.2 g/dl (32-36) Platelet Count 88 K/uL (130-400) Mean Platelet Volume 10.0 fL (7.4-10.4) Neutrophils (%) (Auto) 57.4 % Lymphocytes (%) (Auto) 28.4 % Monocytes (%) (Auto) 7.1 % Eosinophils (%) (Auto) 6.4 % Basophils (%) (Auto) 0.7 % Neutrophils # (Auto) 2.34 K/uL (1.4-6.5) Lymphocytes # (Auto) 1.16 K/uL (1.2-3.4) Monocytes # (Auto) 0.29 K/uL (0.11-0.59) Eosinophils # (Auto) 0.26 K/uL (0-0.5) Basophils # (Auto) 0.03 K/uL (0-0.2) RDW Standard Deviation 49.8 fL (36.4-46.3) RDW Coefficient of Variation 14.1 % (11.5-14.5) Immature Granulocyte % (Auto) 0.0 % Immature Granulocyte # (Auto) 0.00 K/uL (0.00-0.02) Prothrombin Time 12.4 SECONDS (9.0-12.0) Prothromb Time International Ratio 1.2 (0.9-1.1) Activated Partial Thromboplast Time 59.7 SECONDS (21.0-31.0) Partial Thromboplastin Ratio 2.3 Anion Gap 6.0 mmol/L (3-11) Estimated GFR () 133.5 Estimated GFR (Non- 115.2 BUN/Creatinine Ratio 25.2 (10-20) Calcium Level 7.8 mg/dl (8.5-10.1) Total Bilirubin 1.0 mg/dl (0.2-1) Direct Bilirubin 0.4 mg/dl (0-0.2) Aspartate Amino Transf (AST/SGOT) 43 U/L (15-37) Alanine Aminotransferase (ALT/SGPT) 48 U/L (12-78) Alkaline Phosphatase 263 U/L (45-117) Total Protein 6.4 gm/dl (6.4-8.2) Albumin 2.9 gm/dl (3.4-5.0) Ammonia 94.0 umol/L (11-32) Medications Administered Medications (Trade) Dose Ordered Sig/Danita Route Start Time Stop Time Status Last Admin Dose Admin Lorazepam (Ativan Inj) 1 mg NOW STAT IV 08/18/17 12:48 08/18/17 12:53 DC 08/18/17 13:04 1 MG Oxcarbazepine (Trileptal Tab) 300 mg NOW STAT PO 08/18/17 14:10 08/18/17 14:17 DC 08/18/17 15:14 300 MG Medical Decision Patient was seen and evaluated as above in room a 9. Review was performed of nursing notes and vital signs. After obtaining a thorough history and physical examination the above work up was performed. She presents to us today with over concern for a quite seizure that occurred today while having a DEXA scan. She also had 2 yesterday. The notes that there is slight thickening of the head with this 1 but not a true grandmal which she has had in the past. She was recently admitted here he notes. She is nontoxic on exam. She is responsive. I did elect to obtain baseline labs and at this time there has been no significant change compared to previous on these. Her ammonia level for her is actually quite stable at this time. It is better/improved compared to the other times. Twice I was called to the room to what was described as a small silent seizure. The patient did have slight taking movements of the right head. She was given 1 mg of Ativan IV. This stopped. I was then called again to the room however when I began talking she opened her eyes and seemed fine. 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 I discussed this with the attending physician as well as the on-call neurologist, Dr. Sams. It is important note that the did call Dr. Gonzalez, the patient' s neurologist last night and was recommended to double her dose of Trileptal last night and this morning. They did this. In speaking with Dr. Sams, it was recommended to give another 300 mg one-time dose of the Trileptal. She appears stable for outpatient management. They are to call the neurologist to schedule follow-up or return with worsening. Again she has no sign on exam to suggest CVA, emergent process or life-threatening illness. The patient was educated upon management, had questions answered prior to discharge, and was discharged home in good condition. Of additional note upon my entrance into the examination room an EKG had already been obtained and reveals normal sinus rhythm, rate of 79 bpm. No ectopy or ischemic change. Case was discussed with the attending physician. I attest that I have personally reviewed the patient medication list. I attest that I have reviewed the patient's blood pressure and it was found to be elevated likely secondary to situation. In the evaluation and treatment of this patient, the following differential diagnoses were considered: Concussion, Contrecoup Injury, Brain Tumor, Depression, Encephalitis, Hypothyroidism, Meningitis, CVA, TIA, Migraine, Cluster Headache, Intracranial Abnormality, Intracranial Hemorrhage, Subdural Hematoma, Subarachnoid Hemorrhage, Hydrocephalus. Impression Primary Impression: Seizure-like activity Additional Impression: Anemia Departure Information Dispostion Home / Self-Care Condition GOOD Referrals Olena Little DO (PCP) Jorden Gonzalez M.D. Patient Instructions My [facility] Additional Instructions You were seen in the emergency department for seizure-like activity. At this time I recommend rest, discontinuing the Fioricet until you see Dr. Gonzalez and continue your other medications. Please call Dr. Gonzalez's office as soon as possible to schedule follow-up. Please return with any new/concerning symptoms. Thank you for your time. Problem Qualifiers
[2017-08-18 12:44] LABS: HEMATOCRIT 28.4 % (37-47); MEAN CELL VOLUME 99.3 fL (80-100); MEAN CORPUSCULAR HGB CONC 35.2 g/dl (32-36); RED CELL DISTRIBUTION WIDTH CV 14.1 % (11.5-14.5); RED CELL DISTRIBUTION WIDTH SD 49.8 fL (36.4-46.3); WHITE BLOOD COUNT 4.08 K/uL (4.8-10.8)
[2017-08-18] MEDS ORDERED: LORAZEPAM 2 MG/ML 1 ML VIAL IV STA (12:48)
[2017-08-18 13:01] LABS: INR 1.2 (0.9-1.1)
[2017-08-18 13:04] LABS: ALBUMIN 2.9 gm/dl (3.4-5.0); ALKALINE PHOSPHATASE 263 U/L (45-117); ALT/SGPT 48 U/L (12-78); AST/SGOT 43 U/L (15-37); BLOOD UREA NITROGEN 12 mg/dl (7-18); CALCIUM 7.8 mg/dl (8.5-10.1); CARBON DIOXIDE 23 mmol/L (21-32); CREATININE 0.46 mg/dl (0.60-1.20); GLUCOSE 74 mg/dl (70-99); POTASSIUM 3.9 mmol/L (3.5-5.1); SODIUM 143 mmol/L (136-145); TOTAL PROTEIN 6.4 gm/dl (6.4-8.2)
[2017-08-18 13:07] LABS: PLATELET COUNT 88 K/uL (130-400)
[2017-08-18 13:11] LABS: BASO % 0.7 %; BASO ABS # 0.03 K/uL (0-0.2); EOS % 6.4 %; EOS ABS # 0.26 K/uL (0-0.5); LYMPH % 28.4 %; LYMPH ABS # 1.16 K/uL (1.2-3.4); MONO % 7.1 %; MONO ABS # 0.29 K/uL (0.11-0.59); NEUT % 57.4 %; NEUT ABS # 2.34 K/uL (1.4-6.5)
[2017-08-18 13:15] LABS: PTT PATIENT 59.7 SECONDS (21.0-31.0)
[2017-08-18] MEDS ORDERED: OXCARBAZEPINE 150 MG TAB PO STA (14:10)
[2017-08-18 15:22] VITALS: BP 140/73; PULSE 82; O2SAT 95
== END 2017-08-18 15:23 | disposition home or self-care (01) ==
LOC: C.EDB 11:09 → C.EDA 15:23
DX: R56.9 Unspecified convulsions (principal); D64.9 Anemia, unspecified; J45.909 Unspecified asthma, uncomplicated; F31.9 Bipolar disorder, unspecified; F60.3 Borderline personality disorder; F32.9 Major depressive disorder, single episode, unspecified; E11.9 Type 2 diabetes mellitus without complications; E03.9 Hypothyroidism, unspecified; G43.909 Migraine, unspecified, not intractable, without status migrainosus; I10 Essential (primary) hypertension; D46.9 Myelodysplastic syndrome, unspecified; Z79.4 Long term (current) use of insulin; Z79.899 Other long term (current) drug therapy

== ENCOUNTER → 2017-08-18 | Outpatient (CLI) | payer BC, OTHER ==
[~2017-08-18] MED LIST changes: -ASCO10003 PO; +FRCT/ PO; -HYDR50CA PO; -OXYC1TAB3 PO; -PROM25TA16 PO; -TOBRADEX OTR; -VITA80005 PO; -VLTG EXT
== END | disposition home or self-care (01) ==
LOC: C.MAMM 10:38
PROVIDERS: ATTEND Family Medicine
DX: M85.852 Other specified disorders of bone density and structure, left thigh (principal); M81.6 Localized osteoporosis [Lequesne]

== ENCOUNTER 2017-08-20 04:18 | Emergency (ER) | payer BC, OTHER ==
[~2017-08-20] VITALS: Ht 165.1 cm; Wt 91.0 kg
[~2017-08-20 04:18] MED LIST changes: +FRCT/ PO
[2017-08-20 04:26] VITALS: TEMP 36.4; Ht 165.1 cm; Wt 91.0 kg
[2017-08-20] MEDS ORDERED: ACETAMINOPHEN 500 MG TAB PO STA (04:34)
[2017-08-20 04:50] VITALS: BP 147/73; PULSE 83; O2SAT 94
[2017-08-20] MEDS ORDERED: LACT10SO17 PO (04:53)
[2017-08-20] MEDS ORDERED: OXCA300T PO (05:07)
[2017-08-20] MEDS ORDERED: RIZA10TA18 PO (05:11)
--- NOTE | 2017-08-20 07:42 | EMERGENCY ROOM VISIT NOTE ---
History First contact with patient: 04:29 Chief Complaint: BACK PAIN Stated Complaint: EXTREME LOWER BACK PAIN LT SIDE History of Present Illness The patient is a 51 year old female who presents to the Emergency Room with complaints of low back pain that began yesterday without distinct trauma. The patient is very well-known to the emergency department. Today is her eighth visit in the past month for various complaints. Patient states that she went to her primary care with this complaint, and is taking narcotic pain control medication at home. The patient reports intermittent difficulty using the bathroom. She does not have paresthesias. No radiation of her pain. She rates her discomfort a 10/10 and has not taken anything in the past few hours for pain control. She previously was taking Advil PM and her narcotics. Review of Systems More than 10 systems were reviewed and otherwise negative with the exception of history of present illness. Past Medical/Surgical History Medical Problems: (1) Asthma (2) Bipol I, Rec Epis (Or Current) Depressed, Unspecified (3) Borderline personality disorder (4) Cirrhosis (5) Closed right hip fracture (6) Depression (7) Diab Ashley Wo Comp Type Ii Or Nos/Not Uncontrolled (8) Diabetic gastroparesis (9) Heart murmur (10) History of hepatic encephalopathy (11) Hyponatremia (12) Hypothyroidism (13) Major depressive disorder with psychotic features (14) Migraines (15) Murmur (16) Myelodysplastic syndrome (17) Opiate abuse, continuous (18) Pancytopenia (19) Peptic ulcer disease (20) Portal Hypertension (21) Seizure disorder (22) Suicidal ideation (23) UTI (urinary tract infection) Surgical Problems: (1) H/O nasal septoplasty (2) History of appendectomy (3) History of cholecystectomy (4) History of hysterectomy (5) History of kyphoplasty (6) History of tonsillectomy (7) s/p spinal stimulator placement Family History Depression Hypertension Social History Smoking Status: Never Smoker Alcohol Use: none Drug Use: none Marital Status: Housing Status: lives with family Occupation Status: disabled Current/Historical Medications Scheduled Acetamin/Butalbital/Caffeine (Fioricet), 1 TAB PO UD Cholecalciferol (Vitamin D), 5,000 UNITS PO QAM Cranberry (Vaccinium Macrocarp (Cranberry Extract), 1 CAP PO BID Ibuprofen (Advil), 400 MG PO UD Insulin Glargine (Lantus Solostar), 40 UNITS SC BID Insulin Lispro (Human) (Humalog Kwikpen), 20 UNITS SC AC Lactulose (Chronulac), 15 ML PO BID Levetiracetam (Levetiracetam), 2,000 MG PO BID Levothyroxine Sodium (Levothyroxine Sodium), 75 MCG PO QAM Magnesium Oxide (Mg Supplement (Magnesium), 500 MG PO BID Mirtazapine (Mirtazapine), 45 MG PO HS Multivitamin (Multivitamin), 1 TAB PO QAM Omeprazole (Prilosec), 20 MG PO QAM Oxcarbazepine (Trileptal), 600 MG PO QPM Oxcarbazepine (Trileptal), 300 MG PO QAM Probiotic Product (Probiotic), 1 CAP PO QAM Rifaximin (Xifaxan), 550 MG PO BID Sertraline (Zoloft), 100 MG PO QAM Spironolactone (Aldactone), 50 MG PO QAM Topiramate (Topamax ), 75 MG PO QPM Topiramate (Topamax), 100 MG PO QAM Zinc Gluconate (Zinc), 50 MG PO BID Scheduled PRN Ondansetron Odt (Zofran Odt), 8 MG SL Q6H PRN for Nausea Rizatriptan Benzoate (Maxalt), 10 MG PO DIRECTED PRN for Migraine Physical Exam Vital Signs Date Time Temp Pulse Resp B/P (MAP) Pulse Ox O2 Delivery O2 Flow Rate FiO2 08/20/17 04:50 83 18 147/73 94 08/20/17 04:26 36.4 83 18 147/73 94 Room Air Physical Exam VITALS: Vitals are noted on the nurse's note and reviewed by myself. Vital signs stable. GENERAL: Chronically unwell appearing female who is at her normal baseline. NECK: Supple without nuchal rigidity. No lymphadenopathy. No thyromegaly. Cervical spine is nontender. HEART: Regular rate and rhythm without murmurs gallops or rubs. LUNGS: Clear to auscultation bilaterally without wheezes, rales or rhonchi. No retractions or accessory muscle use. MUSCULOSKELETAL: There is no significant tenderness appreciated on palpation throughout the lower lumbar spine or bilateral SI joints. No saddle paresthesias. Negative straight leg raise bilateral. Medical Decision & Procedures Laboratory Results Test 08/20/17 04:46 Urine Color YELLOW Urine Appearance CLEAR (CLEAR) Urine pH 6.0 (4.5-7.5) Urine Specific [place] 1.024 (1.000-1.030) Urine Protein NEG (NEG) Urine Glucose (UA) NEG (NEG) Urine Ketones NEG (NEG) Urine Occult Blood NEG (NEG) Urine Nitrite NEG (NEG) Urine Bilirubin NEG (NEG) Urine Urobilinogen NEG (NEG) Urine Leukocyte Esterase NEG (NEG) Medications Administered Medications (Trade) Dose Ordered Sig/Danita Route Start Time Stop Time Status Last Admin Dose Admin Acetaminophen (Tylenol Tab) 1,000 mg NOW STAT PO 08/20/17 04:34 08/20/17 04:36 DC 08/20/17 04:42 1,000 MG ED Course Physical exam and history were performed. Nursing notes, EMR, and Medication List were personally reviewed. Patient appears to have low back pain for the past 1 day. She is noticing her primary care physician about this. The patient appears at her normal baseline and is well-known to the ER. Patient was given a dose of Tylenol here in the department. Out of concern for possible urine etiology a catheter urine specimen was obtained which did not show obvious evidence of infection. The patient will be treated conservatively and asked to follow with her PCP for further management. She is fully aware that she is on a treatment plan here, and this was reviewed with her. She was otherwise invited back to the ER with any new, worsening, or concerning symptoms. The chart was completed utilizing [employer] Speech Voice Recognition Software. Grammatical errors, random word insertions, pronoun errors, and incomplete sentences are an occasional consequence of this system due to software limitations, ambient noise, and hardware issues. Any formal questions or concerns about the content, text, or information contained within the body of this dictation should be directly addressed to the provider for clarification. . Medical Decision Differential diagnosis: Etiologies such as musculoskeletal, disc herniation, fracture, aortic disease, metastatic disease, cord compression, discitis, infection, renal colic, gastrointestinal, acute exacerbation of chronic back pain, sciatica, cauda equina, as well as others were entertained. Impression Primary Impression: Low back pain Departure Information Dispostion Home / Self-Care Condition GOOD Forms HOME CARE DOCUMENTATION FORM, IMPORTANT VISIT INFORMATION Patient Instructions My [facility] Additional Instructions You were seen and evaluated today on an emergency basis only. This is not a substitute for, or an effort to provide, complete comprehensive medical care. It is not possible to recognize and treat all injuries or illnesses in a single emergency department visit. For this reason it is recommended that you followup with your primary care physician or lead based paint technician for ongoing care and evaluation. The emergency department is not able to provide you Narcotic pain medication. Your pain complaints are best evaluated by your PCP or pain specialist. You may use [id number] ibuprofen and Tylenol at the direction of your primary care physician. You are welcome to return to the emergency department anytime with new, worsening, or concerning symptoms.
== END 2017-08-20 04:50 | disposition home or self-care (01) ==
LOC: C.EDB 04:20
DX: M54.5 Low back pain (principal); Z79.4 Long term (current) use of insulin; Z79.899 Other long term (current) drug therapy; J45.909 Unspecified asthma, uncomplicated; F31.9 Bipolar disorder, unspecified; F60.3 Borderline personality disorder; K74.60 Unspecified cirrhosis of liver; E11.43 Type 2 diabetes mellitus with diabetic autonomic (poly)neuropathy; E03.9 Hypothyroidism, unspecified; K76.6 Portal hypertension; D46.9 Myelodysplastic syndrome, unspecified; F11.10 Opioid abuse, uncomplicated; G40.909 Epilepsy, unspecified, not intractable, without status epilepticus; Z87.11 Personal history of peptic ulcer disease; Z87.440 Personal history of urinary (tract) infections; Z90.49 Acquired absence of other specified parts of digestive tract; Z90.710 Acquired absence of both cervix and uterus; Z81.8 Family history of other mental and behavioral disorders; Z82.49 Family history of ischemic heart disease and other diseases of the circulatory system

== ENCOUNTER → 2017-10-22 | Outpatient (CLI) | payer BC, OTHER ==
[~2017-10-22] MED LIST changes: +CARB25TA14 PO; +CARB25TA16; +CLB100 PO; +DIPH1TAB87 PO; -FRCT/ PO; +IBUP1CAP30 PO; -LACT10SO17 PO; +LACT10SO3 PO; +LDDP5 TD; +MELATAB2 PO; -ONDA8TAB62 SL; -PRLSR20 PO; +RANI150T85 PO; +RXC5 PO; +SERT1TAB71 PO; -SERT50TA PO; -SPIR25TA PO; +SPIR50TA2 PO; +TOPI100T34 PO; -TOPI100T45 PO; -TOPI25TA99 PO; +VITA80005 PO; +ZFRODT/8 PO
== END | disposition home or self-care (01) ==
LOC: C.LAB 11:59
PROVIDERS: ATTEND Internal Medicine Endocrinology, Diabetes & Metabolism
DX: K74.60 Unspecified cirrhosis of liver (principal); K76.9 Liver disease, unspecified; G40.909 Epilepsy, unspecified, not intractable, without status epilepticus; K31.84 Gastroparesis; E03.9 Hypothyroidism, unspecified; E06.3 Autoimmune thyroiditis; E66.9 Obesity, unspecified

== ENCOUNTER 2017-10-23 23:14 | Inpatient (IN) | payer BC, OTHER ==
[~2017-10-23] VITALS: Ht 165.1 cm; Wt 116.0 kg
[~2017-10-23 23:14] MED LIST changes: -CARB25TA16; -CLB100 PO; -DIPH1TAB87 PO; -LDDP5 TD; -RXC5 PO
[2017-10-23] MEDS ORDERED: HYDROmorphone INJ 1 MG/ML SYR IV STA (23:57)
--- NOTE | 2017-10-24 00:10 | EMERGENCY ROOM VISIT NOTE ---
History Report prepared by Broderick: Mc Clark Under the Supervision of: Dr. Gerri Nieves D.O. First contact with patient: 23:30 Chief Complaint: LEG PAIN,LEG INJURY Stated Complaint: SEVERE PAIN IN RIGHT LEG History of Present Illness The patient is a 51 year old female who presents to the Emergency Room with complaints of constant right leg pain beginning yesterday. The patient states that she had a right hip fracture four months ago but she notes that her current pain is different as it started two months ago. She reports that she has been having right thigh pain that radiates down to her foot and to her right lower back. The patient states that her pain started yesterday but has been much worse tonight. She notes that her leg pain worsens with movement. She also complains of nausea which is typical for her. She reports that she cannot bend her right knee because of her pain. She denies any hip pain, fever, chills , vomiting, and blisters on her legs. The patient states that she has been taking oxycodone at home and has relief of her symptoms for a few hours. She notes that she had X-rays of her lower back done a while ago which showed degenerative changes in her lower back. She reports that she was told that the pin in her right hip moved half an inch. The patient states that she recently had her vagus nerve stimulator taken out. She notes that she has a previous history of shingles. She reports that she last had steroids in January,, and received an injection in her lower back at that time. The patient's states that he has to help the patient move her right leg. He notes that the patient was not having this pain after her hip fracture. Source of History: patient, spouse/significant other () Onset: yesterday Position: leg (left) Timing: constant Modifying Factors (Worsening): movement Modifying Factors (Relieving): other (oxycodone) Associated Symptoms: + nausea, + back pain, No fevers, No chills, No vomiting Note: The patient also complains of right foot pain. She denies any hip pain and blisters on her legs. Review of Systems See HPI for pertinent positives & negatives. A total of 10 systems reviewed and were otherwise negative. Past Medical & Surgical Medical Problems: (1) Asthma (2) Bipol I, Rec Epis (Or Current) Depressed, Unspecified (3) Borderline personality disorder (4) Cirrhosis (5) Closed right hip fracture (6) Depression (7) Diab Ashley Wo Comp Type Ii Or Nos/Not Uncontrolled (8) Diabetic gastroparesis (9) Heart murmur (10) History of hepatic encephalopathy (11) Hyponatremia (12) Hypothyroidism (13) Intractable pain (14) Major depressive disorder with psychotic features (15) Migraines (16) Murmur (17) Myelodysplastic syndrome (18) Opiate abuse, continuous (19) Pancytopenia (20) Peptic ulcer disease (21) Portal Hypertension (22) Seizure disorder (23) Shingles (24) Suicidal ideation (25) UTI (urinary tract infection) Surgical Problems: (1) H/O nasal septoplasty (2) History of appendectomy (3) History of cholecystectomy (4) History of hysterectomy (5) History of kyphoplasty (6) History of tonsillectomy (7) s/p spinal stimulator placement Family History Depression Hypertension Social History Smoking Status: Never Smoker Alcohol Use: none Drug Use: none Marital Status: Housing Status: lives with family Occupation Status: disabled Current/Historical Medications Scheduled Cholecalciferol (Vitamin D), 5,000 UNITS PO QAM Cranberry (Vaccinium Macrocarp (Cranberry Extract), 1 CAP PO BID Ibuprofen (Advil), 200 MG PO HS Ibuprofen-Diphenhydramine Hcl (Advil Pm), 1 CAP PO HS Insulin Glargine (Lantus Solostar), 40 UNITS SC BID Insulin Lispro (Human) (Humalog Kwikpen), 25 UNITS SC AC Lactulose (Chronulac), 15 ML PO BID Levetiracetam (Levetiracetam), 2,000 MG PO BID Levothyroxine Sodium (Levothyroxine Sodium), 75 MCG PO QAM Magnesium Oxide (Mg Supplement (Magnesium), 500 MG PO BID Melatonin (Melatonin Maximum Strengt), 15 MG PO HS Mirtazapine (Mirtazapine), 45 MG PO HS Multivitamin (Multivitamin), 1 TAB PO QAM Oxcarbazepine (Trileptal), 300 MG PO BID Probiotic Product (Probiotic), 1 CAP PO QAM Ranitidine (Zantac), 150 MG PO BID Rifaximin (Xifaxan), 550 MG PO BID Sertraline Hcl (Zoloft), 50 MG PO DAILY Spironolactone (Aldactone), 25 MG PO QAM Topiramate (Topamax), 100 MG PO BID Vitamin A (Vitamin A), 8,000 UNITS PO DAILY Zinc Gluconate (Zinc), 50 MG PO BID Scheduled PRN Ondansetron (Ondansetron Odt), 8 MG PO Q6 PRN for Nausea or Vomiting Rizatriptan Benzoate (Maxalt), 10 MG PO DIRECTED PRN for Migraine Miscellaneous Medications Carbidopa/Levodopa (Sinemet 25MG/250MG), 1 TAB PO Allergies Coded Allergies: Amoxicillin (Verified Allergy, Intermediate, HIVES; Has tolerated cephalosporins (Rocephin, Ceftin,Keflex, 10/23/17) Azithromycin (Verified Allergy, Intermediate, HIVES, 10/23/17) Baclofen (Verified Allergy, Intermediate, RASH, 10/23/17) Butalbital (Verified Allergy, Intermediate, HIVES, 10/23/17) Clarithromycin (Verified Allergy, Intermediate, RASH, 10/23/17) Dicyclomine (Verified Allergy, Intermediate, HIVES, 10/23/17) HIVES Penicillins (Verified Allergy, Intermediate, RASH; has tolerated cephs ( Rocephin, Keflex, Ceftin), 10/23/17) PT STATES SHE GETS WELTS FROM CIPRO,LEVAQUIN ALLERGY PER DR ROBLES Tetracyclines (Verified Allergy, Intermediate, DOXYCYCLINE-HIVES, 10/23/17) Sulindac (Verified Allergy, Mild, ALLERGY LISTED "CLONDORAL"--HIVES, ) Adhesives (Verified Allergy, Unknown, RASH, DUODERM=RED,ITCHY, 10/23/17) PLASTIC TAPE IS OK!!! DUODERM=RED,ITCHY Clavulanic Acid (Verified Allergy, Unknown, diahrea , 10/23/17) Metronidazole (Verified Allergy, Unknown, SEIZURE, 10/23/17) Tramadol (Verified Allergy, Unknown, SEIZURES, 10/23/17) Furosemide (Verified Adverse Reaction, Severe, HIVES, 10/23/17) Metoclopramide (Verified Adverse Reaction, Severe, SEIZURES, 10/23/17) Insulin Aspart (Verified Adverse Reaction, Intermediate, NO ALLERGY!!!!!! , 10/23/17) PT SAYS HER INSURANCE (EVEN WHILE HOSPITALIZED) WILL NOT PAY FOR NOVOLOG!! ONLY HUMALOG!!! Blueberry (Verified Adverse Reaction, Mild, STOMACH PAIN, 10/23/17) Physical Exam Vital Signs Date Time Temp Pulse Resp B/P (MAP) Pulse Ox O2 Delivery O2 Flow Rate FiO2 10/24/17 07:23 86 179/85 96 Room Air 10/24/17 06:48 78 16 93 Room Air 10/24/17 05:32 84 18 148/66 95 Room Air 10/24/17 03:45 90 18 150/62 96 Room Air 10/23/17 23:24 36.5 80 18 128/79 98 Room Air Physical Exam HEENT: Head - normocephalic and atraumatic Pupils are equal, round, and reactive to light. Extraocular eye muscles are intact, and sclera are anicteric. Nose - moist nasal mucosa without discharge. Mouth - moist buccal mucosa. Oropharynx is nonerythematous and there is no tonsillar exudate or edema noted. Neck: Supple; no JVD, nuchal rigidity, cervical lymphadenopathy. Heart: Regular rate and rhythm. There is a normal S1 and S2 with no murmurs, clicks, or gallops appreciated. Lungs: Clear to auscultation bilaterally with no wheezes, rales, or rhonchi. Abdomen: Soft, completely nontender, nondistended, with good bowel sounds. There are no palpable pulsatile masses or hepatosplenomegaly. There is no guarding, rigidity, or rebound noted. Extremities: No evidence of cyanosis, clubbing, or edema. There are easily palpable peripheral pulses. Skin: warm and dry with good turgor and no rashes. Neuro: 0/5 muscle strength at the right hip, right knee, and right ankle. Very minimal pedal push and pull on right, left is normal. The sensation is normal in both lower extremities. Medical Decision & Procedures ER Provider Diagnostic Interpretation: Radiology results as stated below per my review and the radiologist's interpretation: MRI L SPINE: Impression: Status post remote laminectomy from L3-S1. Chronic L1 ventral compression fracture without MR evidence of acute lumbar compression fracture. Advanced lumbar spondylosis without high-grade canal compromise or cauda equina nerve root compression. Multilevel disc osteophyte complexes with superimposed protrusions/extrusions from L3-S1 contributing to varying degrees of lateral recess narrowing most pronounced at L4-L5 where mass effect is suspected on the descending L5 nerve roots. Posterior decompression present at these levels without canal compromise. Moderate/severe right neuroforaminal narrowing at L4- L5. Correlate for right L4 radiculopathy. Incidental findings: Lobulated T2 hypointense lesions in the left retroperitoneum are suspicious for prominent venous collaterals, grossly similar to prior CT 05/12/2012. Radiologist: Keith Monterroso M.D. Medications Administered Medications (Trade) Dose Ordered Sig/Danita Route Start Time Stop Time Status Last Admin Dose Admin Hydromorphone HCl (Dilaudid Inj) 1 mg NOW STAT IV 10/23/17 23:57 10/24/17 00:00 DC 10/24/17 00:19 1 MG Diphenhydramine HCl (Benadryl Extra Strength Cream) 1 appln NOW STAT EXT 10/24/17 00:46 10/24/17 00:52 DC 10/24/17 00:46 1 APPLN Methylprednisolone Sodium Succinate (Solu-Medrol IV) 125 mg NOW STAT IV 10/24/17 04:56 10/24/17 04:58 DC 10/24/17 05:02 125 MG Hydromorphone HCl (Dilaudid Inj) 0.5 mg NOW STAT IV 10/24/17 04:56 10/24/17 04:58 DC 10/24/17 05:02 0.5 MG Dexamethasone Sodium Phosphate (Dexamethasone Inj Pf) 10 mg STK-MED ONCE .ROUTE 10/24/17 05:57 10/24/17 05:58 DC 10/24/17 05:57 10 MG Procedure Dilaudid Inj 1mg IV. Diphenhydramine HCl 1 appln EXT. Dilaudid Inj 0.5mg IV, Solu-Medrol IV 125mg IV. ED Course 2340: Past medical records reviewed. The patient was evaluated in room C3. A complete history and physical exam was performed. Her port was accessed. 2357: Dilaudid Inj 1mg IV 0045: I reevaluated and updated the patient. She states that her leg is feeling much better. She now complains of itching to the left side of her neck where she has a new surgical incision that is healing. I ordered her Benadryl cream. 0046: Diphenhydramine HCl 1 appln EXT 0213: The patient is going to MRI. 0346: The patient is back from MRI and states that her pain is back. 0456: Dilaudid Inj 0.5mg IV, Solu-Medrol IV 125mg IV 0450: I [facility] the patient's [facility] He recommends having the patient be evaluated by medicine for pain management and he will be a consult. 0459: I rechecked the patient and updated her on her results. 0516: Upon reevaluation, I discussed findings and results with the patient. She verbalized agreement of the treatment plan. I spoke with Dr. Osei of the [facility] Hospitalist Service. The patient will be evaluated for further management and care. Medical Decision The patient is a 51 year old female who presents to the Emergency Room with complaints of constant right leg pain beginning yesterday. Differential diagnoses include: lumbar radiculopathy, epidural abscess, acute disc herniation , and shingles. The patient has had right lower extremity pain for the past 2 months. She has had plain films of her lumbar spine and right femur which were fairly unremarkable. The pain suddenly became worse over the past 36 hours. She has since developed some right lower extremity weakness. Her describes having to support her for transfers. MRI of the lumbar spine shows nerve root impingement at L4 and L5 from osteophytes and a chronic lumbar compression fracture. I discussed the case with Dr. Sheikh who will evaluate the patient from a surgical standpoint. The patient is having intractable pain and requires evaluation from internal medicine. The patient was evaluated by the [facility] Hospitalist for further inpatient care. Medication Reconcilliation Current Medication List: was personally reviewed by ct Blood Pressure Screening Patient's blood pressure: Elevated blood pressure Elevated blood pressure will be monitored by hospitalist. Consults Time Called: 5 Consulting Physician[facility] Returned Call: [phone] I discussed the patient's case with Dr. Sheikh. He recommends having the patient be evaluated by medicine for pain management and he will be a consult. Additional Consults: Time Called: 05 [facility] Phys[facility] Returned Call: [phone] Additional Comments: Discussed the patient's case. The patient will be evaluated for further management. Impression Primary Impression: Intractable neuropathic pain of right lower extremity Additional Impression: Right lumbar radiculopathy Scribe Attestation The scribe's documentation has been prepared under my direction and personally reviewed by me in its entirety. I confirm that the note above accurately reflects all work, treatment, procedures, and medical decision making performed by me. Departure Information Dispostion Being Evaluated By Hospitalist Referrals Olena Little DO (PCP) Patient Instructions My [facility] Problem Qualifiers
[2017-10-24] MEDS ORDERED: DiphenhydrAMINE 2%/ZINC 0.1% CREAM 28GM TUBE EXT STA (00:46)
[2017-10-24] MEDS ORDERED: METHYLPREDNISOLONE 125 MG VIAL IV STA (04:56)
[2017-10-24] MEDS ORDERED: HYDROmorphone INJ 0.5 MG/0.5 ML SYR IV STA (04:56)
--- NOTE | 2017-10-24 05:22 | History and Physical ---
History & Physical Date & Time of Service: Oct 24, 2017 at 05:22 Chief Complaint: Severe Pain In Right Leg Primary Care Physician: Olena Little DO History of Present Illness Source: patient, hospital records 51 yo F 1 y/o female, with PMHx liver cirrhosis, T2DM, hypothyroidism, seizure disorder, migraines, asthma, parkinsonism, bipolar disorder, depression, chronic pancytopenia, and GERD, R intertrochanteric hip fracture (03/2017) presenting with acute worsening of chronic back pain with Right lower radiculopathy. She reports 2 month history of lower back and RLE pain shooting pain. Pain worsened yesterday. Pain is worse with walking. She denies new injury. She denies numbness and tingling. She denies loss of bladder or bowel control. She has no history of cancer. She is a non-smoker. She has been taking oxycodone which has given her minimal relief. as prescribed by Dr. Castano ( Neurosurgeon) in [place]. She had a neurostimulator removed last week. Patient uses a walker for ambulation. She has has multiple emergency medicine visit for intractable back or leg pain, requesting opiates. In the ED Lumbar MRI showed chronic compression fx at L1, Lumbar Spondylosis and multilevel disc osteophyte complexes, L4-L5 foraminal narrowing. She received Solumedrol IV 125 mg, Dilaudid .5 and 1 mg doses. Past Medical/Surgical History Medical Problems: (1) Acute bronchitis (2) Acute bronchitis (3) Acute hepatic encephalopathy (4) Alkaline phosphatase elevation (5) Altered mental status (6) Altered mental status (7) Anemia (8) Anemia (9) Anemia (10) Asthma (11) Back pain (12) Back pain (13) Bipol I, Rec Epis (Or Current) Depressed, Unspecified (14) Blepharitis of both eyes (15) Borderline personality disorder (16) Bradycardia (17) Breakthrough seizure (18) Burn (19) Change in mental status (20) Change in mental status (21) Change in mental status (22) Change in mental status (23) Chest pain (24) Chronic low back pain (25) Chronic low back pain (26) Cirrhosis (27) Closed head injury (28) Closed head injury (29) Closed right hip fracture (30) Cough (31) Dehydration (32) Dehydration (33) Depression (34) Diab Ashley Wo Comp Type Ii Or Nos/Not Uncontrolled (35) Diabetic gastroparesis (36) Diarrhea (37) Dizziness (38) Dizziness (39) Facial laceration (40) Failure of outpatient treatment (41) Fall (42) Fall (43) Fall (44) Fatigue (45) Gastritis (46) Head trauma (47) Head trauma (48) Heart murmur (49) Hemorrhoid (50) Hemorrhoids (51) Hepatic encephalopathy (52) Hepatic encephalopathy (53) Hepatic encephalopathy (54) Hepatic encephalopathy (55) Hepatic encephalopathy (56) Hepatic encephalopathy (57) Hepatic encephalopathy (58) Hepatic encephalopathy (59) Hepatic encephalopathy (60) Hepatic encephalopathy (61) Hepatic encephalopathy (62) Hepatic encephalopathy (63) Hepatic encephalopathy (64) Hepatic encephalopathy (65) Hepatic encephalopathy (66) Hepatic encephalopathy (67) History of hepatic encephalopathy (68) Hyperammonemia (69) Hyperammonemia (70) Hyperammonemia (71) Hyperammonemia (72) Hypocalcemia (73) Hypocalcemia (74) Hypocalcemia (75) Hypokalemia (76) Hypokalemia (77) Hypokalemia (78) Hypokalemia (79) Hypomagnesemia (80) Hyponatremia (81) Hypothyroidism (82) Increased ammonia level (83) Intertrochanteric fracture of left femur (84) Left foot pain (85) Left shoulder pain (86) Leg pain, right (87) Leg pain, right (88) Leukopenia (89) Lightheaded (90) Low back pain (91) Low back pain (92) Low back pain (93) Major depressive disorder with psychotic features (94) Malingering (95) Medical non-compliance (96) Migraine (97) Migraines (98) Murmur (99) Myelodysplastic syndrome (100) Nausea (101) Nausea (102) Nausea (103) Nausea (104) Nausea (105) Nausea (106) Nausea & vomiting (107) Noncompliance (108) Noncompliance with medication regimen (109) Noncompliance with medications (110) Opiate abuse, continuous (111) Pain in pelvis (112) Pain, joint, ankle, right (113) Pancytopenia (114) Pancytopenia (115) Peptic ulcer disease (116) Persistent vomiting (117) Portal Hypertension (118) Post-operative pain (119) Request for narcotic pain medication (120) Right ear pain (121) Right groin pain (122) Right hip pain (123) Right hip pain (124) Right hip pain (125) Right shoulder pain (126) Right upper lobe pneumonia (127) RUQ abdominal pain (128) Seizure (129) Seizure (130) Seizure disorder (131) Seizure-like activity (132) Sepsis (133) Shingles (134) Suicidal ideation (135) UTI (urinary tract infection) (136) UTI (urinary tract infection) (137) Vomiting (138) Weakness (139) Weakness (140) Weakness (141) Weakness Surgical Problems: (1) H/O nasal septoplasty (2) History of appendectomy (3) History of cholecystectomy (4) History of hysterectomy (5) History of kyphoplasty (6) History of tonsillectomy (7) s/p spinal stimulator placement Family History Depression Hypertension Social History Smoking Status: Never Smoker Smokeless Tobacco Use: No Alcohol Use: none Drug Use: none Marital Status: Housing status: lives with family Occupational Status: disabled Immunizations History of Influenza Vaccine: Yes Influenza Vaccine Date: Feb 02, 2013 History of Tetanus Vaccine?: utd Tetanus Immunization Date: Jun 11, 2008 History of Pneumococcal: SEE LAST PACKET Pneumococcal Date: Nov 13, 2008 History of Hepatitis B Vaccine: Unknown Hepatitis Immunization Date: Jan 12, 1996 Allergies Coded Allergies: Amoxicillin (Verified Allergy, Intermediate, HIVES; Has tolerated cephalosporins (Rocephin, Ceftin,Keflex, 10/23/17) Azithromycin (Verified Allergy, Intermediate, HIVES, 10/23/17) Baclofen (Verified Allergy, Intermediate, RASH, 10/23/17) Butalbital (Verified Allergy, Intermediate, HIVES, 10/23/17) Clarithromycin (Verified Allergy, Intermediate, RASH, 10/23/17) Dicyclomine (Verified Allergy, Intermediate, HIVES, 10/23/17) HIVES Penicillins (Verified Allergy, Intermediate, RASH; has tolerated cephs ( Rocephin, Keflex, Ceftin), 10/23/17) PT STATES SHE GETS WELTS FROM CIPRO,LEVAQUIN ALLERGY PER DR ROBLES Tetracyclines (Verified Allergy, Intermediate, DOXYCYCLINE-HIVES, 10/23/17) Sulindac (Verified Allergy, Mild, ALLERGY LISTED "CLONDORAL"--HIVES, ) Adhesives (Verified Allergy, Unknown, RASH, DUODERM=RED,ITCHY, 10/23/17) PLASTIC TAPE IS OK!!! DUODERM=RED,ITCHY Clavulanic Acid (Verified Allergy, Unknown, diahrea , 10/23/17) Metronidazole (Verified Allergy, Unknown, SEIZURE, 10/23/17) Tramadol (Verified Allergy, Unknown, SEIZURES, 10/23/17) Furosemide (Verified Adverse Reaction, Severe, HIVES, 10/23/17) Metoclopramide (Verified Adverse Reaction, Severe, SEIZURES, 10/23/17) Insulin Aspart (Verified Adverse Reaction, Intermediate, NO ALLERGY!!!!!! , 10/23/17) PT SAYS HER INSURANCE (EVEN WHILE HOSPITALIZED) WILL NOT PAY FOR NOVOLOG!! ONLY HUMALOG!!! Blueberry (Verified Adverse Reaction, Mild, STOMACH PAIN, 10/23/17) Home Medications Scheduled Cholecalciferol (Vitamin D), 5,000 UNITS PO QAM Cranberry (Vaccinium Macrocarp (Cranberry Extract), 1 CAP PO BID Diphenhydramine Hcl (Benadryl Allergy), 50 MG PO Q6H Ibuprofen (Advil), 200 MG PO HS Ibuprofen-Diphenhydramine Hcl (Advil Pm), 1 CAP PO HS Insulin Glargine (Lantus Solostar), 40 UNITS SC BID Insulin Lispro (Human) (Humalog Kwikpen), 25 UNITS SC AC Lactulose (Chronulac), 15 ML PO BID Levetiracetam (Levetiracetam), 2,000 MG PO BID Levodopa/Carbidopa (Carbidopa/Levodopa Sr 25-100 mg), TIDM Levothyroxine Sodium (Levothyroxine Sodium), 75 MCG PO QAM Magnesium Oxide (Mg Supplement (Magnesium), 500 MG PO BID Melatonin (Melatonin Maximum Strengt), 15 MG PO HS Mirtazapine (Mirtazapine), 45 MG PO HS Multivitamin (Multivitamin), 1 TAB PO QAM Oxcarbazepine (Trileptal), 300 MG PO BID Probiotic Product (Probiotic), 1 CAP PO QAM Ranitidine (Zantac), 150 MG PO BID Rifaximin (Xifaxan), 550 MG PO BID Sertraline Hcl (Zoloft), 50 MG PO DAILY Spironolactone (Aldactone), 25 MG PO QAM Topiramate (Topamax), 100 MG PO BID Vitamin A (Vitamin A), 8,000 UNITS PO DAILY Zinc Gluconate (Zinc), 50 MG PO BID Scheduled PRN Ondansetron (Ondansetron Odt), 8 MG PO Q6 PRN for Nausea or Vomiting Rizatriptan Benzoate (Maxalt), 10 MG PO DIRECTED PRN for Migraine Review of Systems Constitutional: No fever, No chills, No weakness Respiratory: No cough, No shortness of breath, No dyspnea on exertion Cardiovascular: No chest pain, No edema, No palpitations Abdomen: No pain, No nausea Musculoskeletal: + problem reported (back pain, RLE pain) Genitourinary - Female: No dysuria, No urinary frequency, No urinary urgency Neurologic: No paralysis, No weakness, No numbness/tingling Integumentary: No rash, No itch Physical Exam Vital Signs Date Time Temp Pulse Resp B/P (MAP) Pulse Ox O2 Delivery O2 Flow Rate FiO2 10/24/17 03:45 90 18 150/62 96 Room Air 10/23/17 23:24 36.5 80 18 128/79 98 Room Air GENERAL: alert, no distress EYE EXAM: normal conjunctiva, PERRL and EOM's grossly intact OROPHARYNX: no exudate, no erythema, lips, buccal mucosa, and tongue normal and mucous membranes are moist NECK: supple, no nuchal rigidity, no adenopathy, non-tender LUNGS: Clear to auscultation. Normal chest wall mechanics HEART: no murmurs, S1 normal and S2 normal ABDOMEN: abdomen soft, non-tender, normo-active bowel sounds, no masses, no rebound or guarding. BACK: Right sided back tenderness lumbar region , Positive Right LE straight leg raise test normal strength, sensation. SKIN: no rashes and no bruising UPPER EXTREMITIES: upper extremities are grossly normal. LOWER EXTREMITIES: No pitting edema. NEURO EXAM: Normal sensorium, cranial nerves II-XII grossly intact, normal speech, no gross weakness of arms, no gross weakness of legs. Impression Assessment and Plan 51 yo F 1 y/o female, with PMHx liver cirrhosis, T2DM, hypothyroidism, seizure disorder, migraines, asthma, parkinsonism, bipolar disorder, depression, chronic pancytopenia, and GERD, R intertrochanteric hip fracture (03/2017) , s/p recent removal os neuro stimulator presenting with acute worsening of chronic back pain with Right lower radiculopathy. In the ED Lumbar MRI showed chronic compression fx at L1, Lumbar Spondylosis and multilevel disc osteophyte complexes, L4-L5 foraminal narrowing. She received Solumedrol IV 125 mg, Dilaudid .5 and 1 mg doses. Acute on Chronic Back pain with RLE radiculopathy -Lumbar MRI showed chronic compression fx at L1, Lumbar Spondylosis and multilevel disc osteophyte complexes, L4-L5 foraminal narrowing (Per STAT RAD) - F/u in house report - Given IV solumderol 135 mg in ED, IV Dilaudid - Start Decadron 10 mg IV - Avoid Narcotics due to concern for frequent visits for opiates -Continue Decadron 4 q6H -Consult Pain management - Consult Ortho Liver cirrhosis. chronic pancytopenia: Chronically elevated ammonia level- Continue lactulose continue rifaximin T2DM ISS, Lantus 16 u BID Hypothyroidism: continue levothyroxine Bipolar disorder, depression: Continue sertraline and mirtazapine Seizure disorder and h/o migraines: Continue levetiracetam, Trileptal, Topamax Asthma: Continue Ventolin and Symbicort GERD: Continue Ranitidine DVT prophylaxis: SCDs Code Status: LEVEL I, FULL Dispo: From home, lives w/ Attending addendum: I have physically seen this patient, have supervised the medical residents activities, and agree with the H&P unless as otherwise noted. Assessment and Plan: Acute on chronic back pain/right lower extremity radiculopathy reported symptoms -- MRI with no new findings. ED has given methylprednisolone 125 mg IV and Dilaudid IV. Start Decadron 10 mg IV now, then 4 mg IV every [address] Sheikh from orthopedic spine surgery. Consult pain management. Liver cirrhosis/chronically elevated ammonia level-- Continue lactulose and rifaximin as outpatient. Bipolar disorder/seizure disorder-- Continue sertraline, mirtazapine, levetiracetam, Trileptal and Topamax. Remainder of orders and notes as above. Advanced Directives Existing Advance Directive: No Existing Living Will: No Resuscitation Status VTE Prophylaxis Will order VTE Prophylaxis: Yes Social Service Consult None Apply Note Total Time: Critical Care 30 - 74 minutes Resident Tracking Resident Involvement: Resident Care Provided Care Provided: Adult Hospital Medicine
[2017-10-24] MEDS ORDERED: GLUCOSE 10 TABS/TUBE PO PRN (05:45)
[2017-10-24] MEDS ORDERED: GLUCAGON FOR INJ 1 MG VIAL SQ PRN (05:45)
[2017-10-24] MEDS ORDERED: CARBOHYDRATES FOR HYPOGLYCEMIA PO PRN (05:45)
[2017-10-24] MEDS ORDERED: POLYETHYLENE (MIRALAX) 17 GM PACK PO PRN (05:45)
[2017-10-24] MEDS ORDERED: ALUMINUM/MAGNESIUM/SIMETH (MAALOX MAX) 30 ML UDC PO PRN (05:45)
[2017-10-24] MEDS ORDERED: MAGNESIUM HYDROXIDE SUSP 30 ML UDC PO PRN (05:45)
[2017-10-24] MEDS ORDERED: GLUCOSE 40% GEL 15 GM TUBE PO PRN (05:45)
[2017-10-24] MEDS ORDERED: ONDANSETRON INJ 2 MG/ML 2 ML VIAL IV PRN (05:45)
[2017-10-24] MEDS ORDERED: DEXAMETHASONE **PF** INJ 10 MG/ML VIAL ONE (05:57)
[2017-10-24] MEDS ORDERED: DEXAMETHASONE INJ 10 MG in SYRINGE 0 ML IV SCH (06:00)
[2017-10-24] MEDS ORDERED: IV FLUIDS COMPLETED PRN (07:00)
--- NOTE | 2017-10-24 07:17 | DIAGNOSTIC IMAGING REPORT ---
LUMBAR SPINE W/O CONTRAST HISTORY: Pain severe right lumbar radiculopathy TECHNIQUE: Multiplanar multisequence MRI of the lumbar spine was performed without the use of contrast. COMPARISON: None. FINDINGS: For the purpose of the report the L5-S1 disc space will be located on axial image [id number]. Signal characteristics of the vertebral bodies are in general unremarkable. There is significant degenerative change of the vertebral endplates as well as degenerative disc change throughout. There is a moderate wedge deformity of L1 considered old. There are operative changes consistent with a posterior laminectomy from L3 through S1. L1-L2: Old compression deformity L1. Partial congenital and/or degenerative fusion anterior aspect of the T12-L1 vertebral bodies. No significant compromise of the spinal canal. Mild broad-based bulging disc combined with mild posterior osteophytic reaction. This partially effaces the anterior subarachnoid space. L2-L3: Mild broad-based disc bulge. Minimal impact anterior thecal sac. L3-L4: Broad-based posterior disc herniation combined with posterior osteophytic reaction. Mild compromise of the neuroforamina bilaterally. L4-L5: Broad-based disc herniation combine with posterior osteophytic reaction. Posterior laminectomy. Moderate/significant narrowing of the neuroforamina bilaterally. L5-S1: Minimal broad-based disc bulge. No major compromise of the spinal canal. IMPRESSION: 1. Findings consistent with prior operative change including L3-S1 laminectomy and fusion as well as a partial anterior endplate fusion of the T12 L1 L2 complex. Components of this are degenerative. 2. Moderate multilevel narrowing of the spinal canal from L3 through L5 with moderate compromise of the neuroforamina bilaterally at both levels.. This is considered most prominent at the L4-L5 level bilaterally. 3. Old mild compression deformity L1 The above report was generated using voice recognition software. It may contain grammatical, syntax or spelling errors. Electronically signed by: Kenroy Yates M.D. 10/24/2017 7:16 AM Dictated Date/Time: 10/24/2017 7:07 AM
[2017-10-24 08:42] VITALS: BP 142/85; PULSE 84; TEMP 36.9; O2SAT 96
[2017-10-24 08:45] VITALS: Ht 165.1 cm; Wt 116.0 kg
[2017-10-24] MEDS ORDERED: RANITIDINE HCL 150 MG TAB PO SCH (09:00)
[2017-10-24] MEDS ORDERED: INSULIN GLARGINE SOLOSTAR 100 UNITS/ML 3 ML PEN SC SCH (09:00)
[2017-10-24] MEDS ORDERED: CARBIDOPA/LEVODOPA 25-250 1 EA TAB PO SCH (09:00)
[2017-10-24] MEDS: LEVOTHYROXINE 75 MCG TAB PO SCH (09:00)
[2017-10-24] MEDS ORDERED: DIPH1TAB87 PO (09:10)
[2017-10-24] MEDS ORDERED: CARB25TA16 (09:12)
[2017-10-24] MEDS: ACETAMINOPHEN 500 MG TAB PO SCH ×2 (10:45→21:31)
[2017-10-24] MEDS: CeleBREX 100 MG CAP PO SCH (10:45)
[2017-10-24] MEDS ORDERED: INSULIN HUMAN LISPRO (humaLOG) 100 UNITS/ML VIAL SC SCH (12:00)
--- NOTE | 2017-10-24 12:02 | Hospitalist Progress Note ---
Hospitalist Progress Note Date of Service Oct 24, 2017. Subjective Pt evaluation today including: conversation w/ patient, physical exam, chart review, lab review, review of inpatient medication list Voiding: no voiding problems Ms. Munson is having lower back pain that radiates to her thigh which she says has been ongoing for a couple of months and prevents her from walking. ROS Constitutional: no chills, aches, sweats or fever Respiratory: no sob,cough, sputum, or wheezing Cardiac: no chest pain, palpitations, edema, orthopnea or lightheadedness GI: no abdominal pain, nausea, vomiting, diarrhea or constipation : no dysuria or hesitancy Extremities: see HPI Skin: no rash All other systems reviewed and negative Medications Medications Administered Medications (Trade) Dose Ordered Sig/Danita Route Start Time Stop Time Status Last Admin Dose Admin Hydromorphone HCl (Dilaudid Inj) 1 mg NOW STAT IV 10/23/17 23:57 10/24/17 00:00 DC 10/24/17 00:19 1 MG Diphenhydramine HCl (Benadryl Extra Strength Cream) 1 appln NOW STAT EXT 10/24/17 00:46 10/24/17 00:52 DC 10/24/17 00:46 1 APPLN Methylprednisolone Sodium Succinate (Solu-Medrol IV) 125 mg NOW STAT IV 10/24/17 04:56 10/24/17 04:58 DC 10/24/17 05:02 125 MG Hydromorphone HCl (Dilaudid Inj) 0.5 mg NOW STAT IV 10/24/17 04:56 10/24/17 04:58 DC 10/24/17 05:02 0.5 MG Dexamethasone Sodium Phosphate (Dexamethasone Inj Pf) 10 mg STK-MED ONCE .ROUTE 10/24/17 05:57 10/24/17 05:58 DC 10/24/17 05:57 10 MG Objective Vital Signs Date Time Temp Pulse Resp B/P (MAP) Pulse Ox O2 Delivery O2 Flow Rate FiO2 10/24/17 08:42 36.9 84 16 142/85 (104) 96 Room Air 10/24/17 07:45 86 16 179/85 96 10/24/17 07:23 86 179/85 96 Room Air 10/24/17 06:48 78 16 93 Room Air 10/24/17 05:32 84 18 148/66 95 Room Air 10/24/17 03:45 90 18 150/62 96 Room Air 10/23/17 23:24 36.5 80 18 128/79 98 Room Air Physical Exam Notes: General: no distress Eyes: normal inspection, PERLL Respiratory: chest non tender, clear to auscultation, normal breath sounds, no respiratory distress, no accessory muscle use Cardiac: regular rate and rhythm, no rub or gallop, systolic murmur RUSB, no edema, no jvd GI/: active bowel sounds, no abd pain or tenderness, soft, non distended Extremities: normal range of motion, generalized weakness Neuro/Psych: alert and oriented x 3, normal mood and affect Skin: normal color, dry Assessment and Plan Ms. Munson is a 51 yo F 1 y/o female here with acute worsening of chronic back pain with right lower radiculopathy. Acute on Chronic Back pain with RLE radiculopathy -Lumbar MRI shows Moderate multilevel narrowing of the spinal canal from L3 through L5 with moderate compromise of the neuroforamina bilaterally at both levels and an old mild compression deformity L1 - F/u in house report - Avoid Narcotics due to concern for frequent visits for opiates -Continue Decadron 4 mg q6H - Consult Ortho Liver cirrhosis. chronic pancytopenia - ammonia 179, no acute mental status changes - Continue lactulose and rifaximin T2DM - SS, lantus bid - pharmacy glycemic consult for steroid use coverage Hypothyroidism: continue levothyroxine Bipolar disorder, depression: Continue sertraline and mirtazapine Seizure disorder and h/o migraines: Continue levetiracetam, Trileptal, Topamax Asthma: Continue Ventolin and Symbicort GERD: Continue Ranitidine DVT prophylaxis: SCDs Code Status: LEVEL I, FULL Dispo: From home, lives w/
[2017-10-24] MEDS ORDERED: PHARMACY GLYCEMIC MGMT CONSULT PRN (12:22)
[2017-10-24] MEDS ORDERED: INSULIN PROTOCOL GOAL RANGE ONE (12:30)
[2017-10-24] MEDS ORDERED: MODERATE STRESS LEVEL ONE (12:30)
[2017-10-24] MEDS: SPIRONOLACTONE 25 MG TAB PO SCH (12:34)
[2017-10-24] MEDS: LACTULOSE SYRUP 10 GM/15 ML BTL 473 ML PO SCH ×2 (12:35→21:28)
[2017-10-24] MEDS: OXCARBAZEPINE 150 MG TAB PO SCH ×2 (12:37→21:30)
[2017-10-24] MEDS: TOPIRAMATE 100 MG TAB PO SCH ×2 (12:37→21:30)
[2017-10-24] MEDS: RIFAXIMIN TAB 550 MG TAB PO SCH ×2 (12:38→21:31)
[2017-10-24] MEDS: SERTRALINE HCL 50 MG TAB PO SCH (12:38)
[2017-10-24] MEDS: DEXAMETHASONE INJ 4 MG in SYRINGE 0 ML IV SCH ×3 (12:39→23:59)
[2017-10-24] MEDS: INSULIN REGULAR 250 UNITS in SODIUM CHLORIDE 0.9% 250ML 250 ML IV SCH ×9 (13:23→23:57)
--- NOTE | 2017-10-24 13:23 | Orthopedic Consultation ---
Orthopedic Consultation Date of Consultation: Oct 24, 2017. Attending Physician: Vince Osei M.D. Reason for Consultation: Right leg pain History of Present Illness This is a 51-year-old female that presents last evening with worsening right leg symptoms. She is status post hip surgery secondary to fracture. She has had a previous lumbar decompression approximately 5 years ago at [place]. She still follows with the surgeons in the [place] area as well as the pain management team. Today she states her pain is in the right side of her lumbar spine extending on the anterior thigh below her knee into the foot. She states she is only able to weight-bear. She states this does not affect the left lower extremity. She is scheduled to follow-up with Dr. hernandez from [place] in the next few weeks. Past Medical/Surgical History Medical Problems: (1) Acute bronchitis Status: Acute (2) Acute bronchitis Status: Acute (3) Acute hepatic encephalopathy Status: Acute (4) Alkaline phosphatase elevation Status: Acute (5) Altered mental status Status: Acute (6) Anemia Status: Acute (7) Anemia Status: Acute (8) Anemia Status: Acute (9) Back pain Status: Acute (10) Back pain Status: Acute (11) Bradycardia Status: Acute (12) Breakthrough seizure Status: Acute (13) Burn Status: Acute (14) Change in mental status Status: Acute (15) Change in mental status Status: Acute (16) Change in mental status Status: Acute (17) Change in mental status Status: Acute (18) Chest pain Status: Acute (19) Chronic low back pain Status: Acute (20) Chronic low back pain Status: Acute (21) Closed head injury Status: Acute (22) Cough Status: Acute (23) Dehydration Status: Acute (24) Dehydration Status: Acute (25) Diarrhea Status: Acute (26) Dizziness Status: Acute (27) Facial laceration Status: Acute (28) Failure of outpatient treatment Status: Acute (29) Fall Status: Acute (30) Fall Status: Acute (31) Fall Status: Acute (32) Fatigue Status: Acute (33) Gastritis Status: Acute (34) Head trauma Status: Acute (35) Hemorrhoid Status: Acute (36) Hepatic encephalopathy Status: Acute (37) Hepatic encephalopathy Status: Acute (38) Hepatic encephalopathy Status: Acute (39) Hepatic encephalopathy Status: Acute (40) Hepatic encephalopathy Status: Acute (41) Hepatic encephalopathy Status: Acute (42) Hepatic encephalopathy Status: Acute (43) Hepatic encephalopathy Status: Acute (44) Hepatic encephalopathy Status: Acute (45) Hepatic encephalopathy Status: Acute (46) Hepatic encephalopathy Status: Acute (47) Hepatic encephalopathy Status: Acute (48) Hepatic encephalopathy Status: Acute (49) Hepatic encephalopathy Status: Acute (50) Hepatic encephalopathy Status: Acute (51) Hepatic encephalopathy Status: Acute (52) Hyperammonemia Status: Acute (53) Hyperammonemia Status: Acute (54) Hyperammonemia Status: Acute (55) Hyperammonemia Status: Acute (56) Hypocalcemia Status: Acute (57) Hypocalcemia Status: Acute (58) Hypocalcemia Status: Acute (59) Hypokalemia Status: Acute (60) Hypokalemia Status: Acute (61) Hypokalemia Status: Acute (62) Hypokalemia Status: Acute (63) Hypomagnesemia Status: Acute (64) Increased ammonia level Status: Acute (65) Intertrochanteric fracture of left femur Status: Acute (66) Intractable neuropathic pain of right lower extremity Status: Acute (67) Left foot pain Status: Acute (68) Left shoulder pain Status: Acute (69) Leg pain, right Status: Acute (70) Leukopenia Status: Acute (71) Lightheaded Status: Acute (72) Low back pain Status: Acute (73) Low back pain Status: Acute (74) Malingering Status: Acute (75) Medical non-compliance Status: Acute (76) Migraine Status: Acute (77) Nausea Status: Acute (78) Nausea Status: Acute (79) Nausea Status: Acute (80) Nausea Status: Acute (81) Nausea Status: Acute (82) Nausea Status: Acute (83) Nausea & vomiting Status: Acute (84) Noncompliance Status: Acute (85) Noncompliance with medication regimen Status: Acute (86) Noncompliance with medications Status: Acute (87) Pain in pelvis Status: Acute (88) Pain, joint, ankle, right Status: Acute (89) Pancytopenia Status: Acute (90) Persistent vomiting Status: Acute (91) Post-operative pain Status: Acute (92) Request for narcotic pain medication Status: Acute (93) Right ear pain Status: Acute (94) Right groin pain Status: Acute (95) Right hip pain Status: Acute (96) Right hip pain Status: Acute (97) Right lumbar radiculopathy Status: Acute (98) Right upper lobe pneumonia Status: Acute (99) RUQ abdominal pain Status: Acute (100) Seizure Status: Acute (101) Seizure-like activity Status: Acute (102) Sepsis Status: Acute (103) UTI (urinary tract infection) Status: Acute (104) Vomiting Status: Acute (105) Weakness Status: Acute (106) Weakness Status: Acute (107) Weakness Status: Acute (108) Weakness Status: Acute Family History Depression Hypertension Social History Smoking Status: Never Smoker Drug Use: none Marital Status: Housing Status: lives with family Occupation Status: disabled Allergies Coded Allergies: Amoxicillin (Verified Allergy, Intermediate, HIVES; Has tolerated cephalosporins (Rocephin, Ceftin,Keflex, 10/23/17) Azithromycin (Verified Allergy, Intermediate, HIVES, 10/23/17) Baclofen (Verified Allergy, Intermediate, RASH, 10/23/17) Butalbital (Verified Allergy, Intermediate, HIVES, 10/23/17) Clarithromycin (Verified Allergy, Intermediate, RASH, 10/23/17) Dicyclomine (Verified Allergy, Intermediate, HIVES, 10/23/17) HIVES Penicillins (Verified Allergy, Intermediate, RASH; has tolerated cephs ( Rocephin, Keflex, Ceftin), 10/23/17) PT STATES SHE GETS WELTS FROM [facility]IP[facility],LEVAQUIN [facility]ER[facility] PER DR ROBLES Tetracyclines (Verified Allergy, Intermediate, DOXYCYCLINE-HIVES, 10/23/17) Sulindac (Verified Allergy, Mild, ALLERGY LISTED "CLONDORAL"--HIVES, ) Adhesives (Verified Allergy, Unknown, RASH, DUODERM=RED,ITCHY, 10/23/17) PLASTIC TAPE IS OK!!! DUODERM=RED,ITCHY Clavulanic Acid (Verified Allergy, Unknown, diahrea , 10/23/17) Metronidazole (Verified Allergy, Unknown, SEIZURE, 10/23/17) Tramadol (Verified Allergy, Unknown, SEIZURES, 10/23/17) Furosemide (Verified Adverse Reaction, Severe, HIVES, 10/23/17) Metoclopramide (Verified Adverse Reaction, Severe, SEIZURES, 10/23/17) Insulin Aspart (Verified Adverse Reaction, Intermediate, NO ALLERGY!!!!!! , 10/23/17) PT SAYS HER INSURANCE (EVEN WHILE HOSPITALIZED) WILL NOT PAY FOR NOVOLOG!! ONLY HUMALOG!!! Blueberry (Verified Adverse Reaction, Mild, STOMACH PAIN, 10/23/17) Home Medications Scheduled Cholecalciferol (Vitamin D), 5,000 UNITS PO QAM Cranberry (Vaccinium Macrocarp (Cranberry Extract), 1 CAP PO BID Diphenhydramine Hcl (Benadryl Allergy), 50 MG PO Q6H Ibuprofen (Advil), 200 MG PO HS Ibuprofen-Diphenhydramine Hcl (Advil Pm), 1 CAP PO HS Insulin Glargine (Lantus Solostar), 40 UNITS SC BID Insulin Lispro (Human) (Humalog Kwikpen), 25 UNITS SC AC Lactulose (Chronulac), 15 ML PO BID Levetiracetam (Levetiracetam), 2,000 MG PO BID Levodopa/Carbidopa (Carbidopa/Levodopa Sr 25-100 mg), TIDM Levothyroxine Sodium (Levothyroxine Sodium), 75 MCG PO QAM Magnesium Oxide (Mg Supplement (Magnesium), 500 MG PO BID Melatonin (Melatonin Maximum Strengt), 15 MG PO HS Mirtazapine (Mirtazapine), 45 MG PO HS Multivitamin (Multivitamin), 1 TAB PO QAM Oxcarbazepine (Trileptal), 300 MG PO BID Probiotic Product (Probiotic), 1 CAP PO QAM Ranitidine (Zantac), 150 MG PO BID Rifaximin (Xifaxan), 550 MG PO BID Sertraline Hcl (Zoloft), 50 MG PO DAILY Spironolactone (Aldactone), 25 MG PO QAM Topiramate (Topamax), 100 MG PO BID Vitamin A (Vitamin A), 8,000 UNITS PO DAILY Zinc Gluconate (Zinc), 50 MG PO BID Scheduled PRN Ondansetron (Ondansetron Odt), 8 MG PO Q6 PRN for Nausea or Vomiting Rizatriptan Benzoate (Maxalt), 10 MG PO DIRECTED PRN for Migraine Current Inpatient Medications Current Inpatient Medications Medications (Trade) Dose Ordered Sig/Danita Route Start Time Stop Time Status Last Admin Dose Admin Acetaminophen (Tylenol Tab) 650 mg Q4H PRN PO 10/24/17 05:45 11/23/17 05:44 Al Hydrox/Mg Hydrox/Simethicone (Maalox Max Susp) 15 ml Q4H PRN PO 10/24/17 05:45 11/23/17 05:44 Magnesium Hydroxide (Milk Of Magnesia Susp) 30 ml Q6H PRN PO 10/24/17 05:45 11/23/17 05:44 Polyethylene (Miralax Powder Packet) 17 gm DAILY PRN PO 10/24/17 05:45 11/23/17 05:44 Ondansetron HCl (Zofran Inj) 4 mg Q6H PRN IV 10/24/17 05:45 11/23/17 05:44 Insulin Human Lispro (humaLOG) SLIDING SCALE If C... ACHS SC 10/24/17 12:00 10/24/17 13:30 Glucose (Glucose 40% Gel) 15-30 GRAMS 15 GRAMS... UD PRN PO 10/24/17 05:45 11/23/17 05:44 Glucose (Glucose Chew Tab) 4-8 Tablets 4 Tabl... UD PRN PO 10/24/17 05:45 11/23/17 05:44 Dextrose (Dextrose 50% 50ML Syringe) 25-50ML 25ML FOR ... UD PRN IV 10/24/17 05:45 11/23/17 05:44 Glucagon (Glucagon Inj) 1 mg UD PRN SQ 10/24/17 05:45 11/23/17 05:44 Carbohydrates (Carbohydrates For Hypoglycemia) 15-30 GRAMS 15 grams if BSG 54-69... UD PRN PO 10/24/17 05:45 11/23/17 05:44 Carbidopa/Levodopa (Sinemet 25/ 250MG Tab) 1 tab DAILY PO 10/24/17 09:00 11/23/17 08:59 Lactulose (Chronulac Syrup) 10 gm BID PO 10/24/17 09:00 11/23/17 08:59 10/24/17 12:35 10 GM Levothyroxine Sodium (Synthroid Tab) 75 mcg DAILYBB PO 10/24/17 09:00 11/23/17 08:59 Mirtazapine (Remeron Tab) 45 mg HS PO 10/24/17 21:00 11/23/17 20:59 Oxcarbazepine (Trileptal Tab) 300 mg BID PO 10/24/17 09:00 11/23/17 08:59 10/24/17 12:37 300 MG Rifaximin (Xifaxan Tab) 550 mg BID PO 10/24/17 09:00 11/23/17 08:59 10/24/17 12:38 550 MG Sertraline HCl (Zoloft Tab) 50 mg DAILY PO 10/24/17 09:00 11/23/17 08:59 10/24/17 12:38 50 MG Spironolactone (Aldactone Tab) 25 mg QAM PO 10/24/17 09:00 11/23/17 08:59 10/24/17 12:34 25 MG Topiramate (Topamax Tab) 100 mg BID PO 10/24/17 09:00 11/23/17 08:59 10/24/17 12:37 100 MG Dexamethasone Sodium Phosphate 4 mg/Syringe 1 ml @ 1 mls/min Q6H IV 10/24/17 12:00 11/23/17 11:59 10/24/17 12:39 1 MLS/MIN Miscellaneous (Iv Fluids Completed) 1 ea PRN PRN N/A 10/24/17 07:00 10/24/18 06:59 Acetaminophen (Tylenol Tab) 1,000 mg BID PO 10/24/17 10:45 11/23/17 10:44 Lidocaine (Lidoderm Patch 5%) 1 patch QAM TD 10/25/17 09:00 11/24/17 08:59 Miscellaneous (Remove Lidoderm Patch) 1 ea DAILY@21 N/A 10/24/17 21:00 11/23/17 20:59 Celecoxib (CeleBREX CAP) 100 mg DAILY PO 10/24/17 10:45 11/23/17 10:44 Miscellaneous Information (Consult Glycemic Management Pharmacy) 1 ea UD PRN N/A 10/24/17 12:22 11/23/17 12:21 Insulin Human Regular 250 units/ Sodium Chloride 252.5 ml @ 0 mls/hr Q24H IV 10/24/17 13:00 11/23/17 12:59 Insulin Human Lispro (humaLOG) SLIDING SCALE PCHS SC 10/24/17 18:30 11/23/17 18:29 Ranitidine HCl (zANTac TAB) 300 mg HS PO 10/24/17 21:00 11/23/17 08:59 UNV Carbidopa/Levodopa (Sinemet Cr 25/ 100MG Tab) 1 tab TIDM PO 10/24/17 17:45 11/23/17 17:44 UNV Physical Exam Date Time Temp Pulse Resp B/P (MAP) Pulse Ox O2 Delivery O2 Flow Rate FiO2 10/24/17 08:42 36.9 84 16 142/85 (104) 96 Room Air 10/24/17 07:45 86 16 179/85 96 10/24/17 07:23 86 179/85 96 Room Air 10/24/17 06:48 78 16 93 Room Air 10/24/17 05:32 84 18 148/66 95 Room Air 10/24/17 03:45 90 18 150/62 96 Room Air 10/23/17 23:24 36.5 80 18 128/79 98 Room Air On exam patient appears to be in distress. She does demonstrate breakaway weakness to testing the plantar flexion dorsiflexion quadriceps on the right does not have significant difficulty with muscle testing on the left. Sensory appears to be symmetric and intact. No gross tension signs. She exhibits significant discomfort with even modest logroll to the right lower extremity compared to left. Laboratory Results Last 24 Hours Test 10/24/17 08:46 10/24/17 12:07 10/24/17 12:59 Bedside Glucose 175 mg/dl 357 mg/dl Assessment & Plan Assessment right leg pain most likely radicular nature. Plan I reviewed the patient's MRI and she does have evidence of previous wide decompression L3 to the sacrum. There is some residual moderate neural foraminal stenosis. Did not appreciate any evidence of significant disc herniation or severe neural foraminal disease. This point she has multiple medical issues and would not be a candidate for surgery in my hands. Recommend she continue with her surgeons at [place]
[2017-10-24 13:47] LABS: CALCIUM 8.4 mg/dl (8.5-10.1); CREATININE 1.06 mg/dl (0.60-1.20); POTASSIUM 4.4 mmol/L (3.5-5.1)
[2017-10-24] MEDS ORDERED: INSULIN GLARGINE SOLOSTAR 100 UNITS/ML 3 ML PEN SC STA (14:51)
--- NOTE | 2017-10-24 15:09 | Pharmacy Progress Note ---
Glycemic Control Intl Consult Date of Service Oct 24, 2017. Scope Glycemic Pharmacist consulted by Karen Bernardo on 10/24/17 for glycemic control and to write orders per [facility] inpatient glycemic control protocol Objective Weight (Kilograms): 95.000 Accuchecks BSG (last 24hrs): Test 10/24/17 08:46 10/24/17 12:07 10/24/17 12:59 Bedside Glucose 175 mg/dl (70-90) 357 mg/dl (70-90) Random Glucose 359 mg/dl (70-99) Laboratory Data (last 24hrs) Test 10/24/17 12:59 Anion Gap 8.0 mmol/L BUN/Creatinine Ratio 18.6 Blood Urea Nitrogen 20 mg/dl Creatinine 1.06 mg/dl Potassium Level 4.4 mmol/L Sodium Level 137 mmol/L Recent Pertinent Medications Outpatient Anti-diabetic Regimen: * Lantus 40 units BID, Humalog 25units AC * A1c = 4.9 % 05/14/17 Risk Factors for Insulin Resistance: * Steroids: Solumedrol 125mg IV X1 in ED + DXM 10mg IV X1 in ED + ATC DXM 4mg IV q6 Assessment & Plan ASSESSMENT: * Ms. uMnson is a 51 yo F known to the pharmacy glycemic service from previous admissions. She p/w acute on chronic back pain, subsequently being placed on ATC IV DXM 4mg. I spoke with the admitting nurse and corroborated Ms. Munson's home insulin regimen. Further, it was discovered that she intentionally skipped this mornings 40 unit lantus dose. * Given the current clinical picture of Ms. Munson and the glucocorticoids that she has received, she will be placed on an IV insulin infsn. We will forgo the IV insulin bolus and use the standing humalog as a one time bolus. * I spoke with the primary team and alerted them of my plan moving forward. PRP ordered to trend serum K+ PLAN FOR INPATIENT GLYCEMIC CONTROL: * Starting IV insulin infusion per moderate stress protocol * Goal Range 140 - 180 mg/dl * In the setting of ATC glucocorticoids, continuous IV insulin infusion has been shown to be the best method for achieving glycemic targets. * Basal insulin with LANTUS: Given that she missed her AM dose of lantus, I will stress her AM dose --> give 50units X1 gabrielle. Will set lantus scale for tonight x1 only. * No correctional insulin ordered at this juncture. We will need to see her insulin requirements while on the insulin infsn before delineating a CF/CR * Please note that the plan above was derived based on current level of insulin resistance and hospital stress. These recommendations are appropriate for inpatient admission only. Plan of care upon discharge will need to be reassessed to avoid potential outpatient hypo/hyperglycemia. Thank you.
[2017-10-24 16:03] VITALS: BP 133/75; PULSE 88; TEMP 36.2; O2SAT 96
[2017-10-24] MEDS: CARBIDOPA/LEVODOPA 25/100MG EXT REL TAB PO SCH (17:37)
[2017-10-24] MEDS: INSULIN HUMAN LISPRO (humaLOG) 100 UNITS/ML VIAL SC SCH ×2 (18:58→21:37)
[2017-10-24] MEDS ORDERED: INSULIN GLARGINE SOLOSTAR 100 UNITS/ML 3 ML PEN SC ONE (21:00)
[2017-10-24] MEDS: MIRTAZAPINE TAB 15 MG TAB PO SCH (21:29)
[2017-10-24] MEDS: RANITIDINE HCL 150 MG TAB PO SCH (21:32)
[2017-10-24] MEDS ORDERED: LEVETIRACETAM 500 MG TAB PO ONE (22:00)
[2017-10-24 23:45] VITALS: BP 163/62; PULSE 87; TEMP 36.8; O2SAT 95
[2017-10-25] MEDS: INSULIN REGULAR 250 UNITS in SODIUM CHLORIDE 0.9% 250ML 250 ML IV SCH ×10 (01:03→13:21)
[2017-10-25] MEDS: ACETAMINOPHEN 500 MG TAB PO SCH ×2 (04:49→21:16)
[2017-10-25] MEDS: CARBIDOPA/LEVODOPA 25/100MG EXT REL TAB PO SCH ×3 (06:05→17:07)
[2017-10-25] MEDS: LEVOTHYROXINE 75 MCG TAB PO SCH (06:05)
[2017-10-25] MEDS: DEXAMETHASONE INJ 4 MG in SYRINGE 0 ML IV SCH (06:05)
[2017-10-25 06:32] LABS: HEMATOCRIT 26.9 % (37-47); HEMOGLOBIN 9.7 g/dL (12.0-16.0); MEAN CELL VOLUME 97.5 fL (80-100); WHITE BLOOD COUNT 3.57 K/uL (4.8-10.8)
[2017-10-25 06:33] LABS: MEAN CORPUSCULAR HEMOGLOBIN 35.1 pg (25-34); MEAN CORPUSCULAR HGB CONC 36.1 g/dl (32-36); RED CELL DISTRIBUTION WIDTH CV 13.2 % (11.5-14.5); RED CELL DISTRIBUTION WIDTH SD 46.3 fL (36.4-46.3)
[2017-10-25 06:45] VITALS: BP 132/63; PULSE 85; TEMP 36.6; O2SAT 96
[2017-10-25 06:55] LABS: MEAN PLATELET VOLUME 10.4 fL (7.4-10.4); PLATELET COUNT 65 K/uL (130-400)
[2017-10-25 07:06] LABS: CALCIUM 7.4 mg/dl (8.5-10.1); CREATININE 0.63 mg/dl (0.60-1.20); POTASSIUM 4.1 mmol/L (3.5-5.1)
[2017-10-25] MEDS ORDERED: INSULIN GLARGINE SOLOSTAR 100 UNITS/ML 3 ML PEN SC STA (07:30)
--- NOTE | 2017-10-25 07:38 | Pharmacy Progress Note ---
Pharmacy Glycemic Short Note 2 Date of Service Oct 25, 2017. OUTPATIENT ANTIDIABETIC REGIMEN: * Lantus 40 units BID * Humalog 25 units AC Test 10/24/17 08:46 10/24/17 12:07 10/24/17 12:59 10/24/17 14:30 Bedside Glucose 175 mg/dl (70-90) 357 mg/dl (70-90) 418 mg/dl (70-90) Random Glucose 359 mg/dl (70-99) Test 10/24/17 14:32 10/24/17 15:26 10/24/17 16:31 10/24/17 17:31 Bedside Glucose 417 mg/dl (70-90) 425 mg/dl (70-90) 439 mg/dl (70-90) 448 mg/dl (70-90) Test 10/24/17 18:28 10/24/17 19:52 10/24/17 20:55 10/24/17 22:36 Bedside Glucose 374 mg/dl (70-90) 468 mg/dl (70-90) 433 mg/dl (70-90) 420 mg/dl (70-90) Test 10/24/17 23:39 10/25/17 00:46 10/25/17 02:03 10/25/17 03:00 Bedside Glucose 395 mg/dl (70-90) 365 mg/dl (70-90) 371 mg/dl (70-90) 322 mg/dl (70-90) Test 10/25/17 04:01 10/25/17 05:19 10/25/17 06:14 Bedside Glucose 301 mg/dl (70-90) 280 mg/dl (70-90) Random Glucose 234 mg/dl (70-99) ASSESSMENT: * Patient on IV Insulin infusion for ATC Steroids, blood sugar remains above goal, drip running at 66.4units/hr, partially d/t steroids and patient would also benefit from a fixed carb ratio, and pt missed her Lantus dose yesterday morning, so we are catching up on basal * Patient requires Lantus dose this morning * Patient known to pharmacy glycemic team, but patient has never been on IV steroids as she is this admission * Seen by Dr Sheikh yesterday, recommend f/u with surgeon in [place] d/t multiple comorbidities PLAN FOR INPATIENT GLYCEMIC CONTROL: * Basal insulin * Lantus 70 units SQ x 1 this morning, further dosing later today * IV Insulin infusion * HOLD rate at 66.4units/hr - no further increase per calculator for safety * Goal Range: Low 140 mg/dL - High 180 mg/dL * NovoLog per scale [facility] * FIXED Nutritional / Prandial insulin per carb ratio of 1 unit per 2 grams CHO consumed
[2017-10-25 08:08] LABS: HEMOGLOBIN A1C 4.5 % (4.5-5.6)
[2017-10-25] MEDS: SPIRONOLACTONE 25 MG TAB PO SCH (08:53)
[2017-10-25] MEDS: CeleBREX 100 MG CAP PO SCH (08:54)
[2017-10-25] MEDS: LACTULOSE SYRUP 10 GM/15 ML BTL 473 ML PO SCH ×2 (08:54→21:18)
[2017-10-25] MEDS: LEVETIRACETAM 500 MG TAB PO SCH ×2 (08:55→21:18)
[2017-10-25] MEDS: RIFAXIMIN TAB 550 MG TAB PO SCH ×2 (08:56→21:14)
[2017-10-25] MEDS: SERTRALINE HCL 50 MG TAB PO SCH (08:56)
[2017-10-25] MEDS: TOPIRAMATE 100 MG TAB PO SCH ×2 (08:56→21:16)
[2017-10-25] MEDS: OXCARBAZEPINE 150 MG TAB PO SCH ×2 (08:57→21:16)
[2017-10-25] MEDS: LIDODERM (LIDOCAINE) PATCH 5% TD SCH (09:00)
[2017-10-25] MEDS: INSULIN HUMAN LISPRO (humaLOG) 100 UNITS/ML VIAL SC SCH ×4 (09:06→21:00)
--- NOTE | 2017-10-25 11:34 | Hospitalist Progress Note ---
Hospitalist Progress Note Date of Service Oct 25, 2017. (Karen Bernardo CRNP) Subjective Pt evaluation today including: conversation w/ patient, physical exam, chart review, lab review, review of inpatient medication list Voiding: no voiding problems Ms. Munson is having continued lower back pain that radiates down her thigh. She is also constipated. Per nursing, her insulin drip is at 96 units per hour and her A.port has good blood draw and does not seem to be malfunctioning. I did discuss with pharmacy, they do not think there is an issue with a mistake mixing the insulin bag because she has required high insulin doses for the past four bags. ROS Constitutional: no chills, aches, sweats or fever Respiratory: no sob,cough, sputum, or wheezing Cardiac: no chest pain, palpitations, edema, orthopnea or lightheadedness GI: no abdominal pain, nausea, vomiting, diarrhea or constipation : no dysuria or hesitancy Extremities: see HPI Skin: no rash All other systems reviewed and negative (Karen Bernardo CRNP) Medications Medications Administered Medications (Trade) Dose Ordered Sig/Danita Route Start Time Stop Time Status Last Admin Dose Admin Hydromorphone HCl (Dilaudid Inj) 1 mg NOW STAT IV 10/23/17 23:57 10/24/17 00:00 DC 10/24/17 00:19 1 MG Diphenhydramine HCl (Benadryl Extra Strength Cream) 1 appln NOW STAT EXT 10/24/17 00:46 10/24/17 00:52 DC 10/24/17 00:46 1 APPLN Methylprednisolone Sodium Succinate (Solu-Medrol IV) 125 mg NOW STAT IV 10/24/17 04:56 10/24/17 04:58 DC 10/24/17 05:02 125 MG Hydromorphone HCl (Dilaudid Inj) 0.5 mg NOW STAT IV 10/24/17 04:56 10/24/17 04:58 DC 10/24/17 05:02 0.5 MG Ondansetron HCl (Zofran Inj) 4 mg Q6H PRN IV 10/24/17 05:45 11/23/17 05:44 10/25/17 05:15 4 MG Insulin Human Lispro (humaLOG) SLIDING SCALE If C... ACHS SC 10/24/17 12:00 10/24/17 13:30 DC 10/24/17 13:26 21 UNITS Lactulose (Chronulac Syrup) 10 gm BID PO 10/24/17 09:00 11/23/17 08:59 10/25/17 08:54 10 GM Levothyroxine Sodium (Synthroid Tab) 75 mcg DAILYBB PO 10/24/17 09:00 11/23/17 08:59 10/25/17 06:05 75 MCG Mirtazapine (Remeron Tab) 45 mg HS PO 10/24/17 21:00 11/23/17 20:59 10/24/17 21:29 45 MG Oxcarbazepine (Trileptal Tab) 300 mg BID PO 10/24/17 09:00 11/23/17 08:59 10/25/17 08:57 300 MG Rifaximin (Xifaxan Tab) 550 mg BID PO 10/24/17 09:00 11/23/17 08:59 10/25/17 08:56 550 MG Sertraline HCl (Zoloft Tab) 50 mg DAILY PO 10/24/17 09:00 11/23/17 08:59 10/25/17 08:56 50 MG Spironolactone (Aldactone Tab) 25 mg QAM PO 10/24/17 09:00 11/23/17 08:59 10/25/17 08:53 25 MG Topiramate (Topamax Tab) 100 mg BID PO 10/24/17 09:00 11/23/17 08:59 10/25/17 08:56 100 MG Dexamethasone Sodium Phosphate 4 mg/Syringe 1 ml @ 1 mls/min Q6H IV 10/24/17 12:00 11/23/17 11:59 10/25/17 06:05 1 MLS/MIN Dexamethasone Sodium Phosphate (Dexamethasone Inj Pf) 10 mg STK-MED ONCE .ROUTE 10/24/17 05:57 10/24/17 05:58 DC 10/24/17 05:57 10 MG Acetaminophen (Tylenol Tab) 1,000 mg BID PO 10/24/17 10:45 11/23/17 10:44 10/25/17 04:49 1,000 MG Celecoxib (CeleBREX CAP) 100 mg DAILY PO 10/24/17 10:45 11/23/17 10:44 10/25/17 08:54 100 MG Miscellaneous (Insulin Protocol Goal Range (Other)) 1 ea ONE ONCE N/A 10/24/17 12:30 10/24/17 12:33 DC 10/24/17 12:30 1 EA Miscellaneous (Insulin Protocol Moderate Stress Level) 1 ea ONE ONCE N/A 10/24/17 12:30 10/24/17 12:32 DC 10/24/17 12:30 1 EA Insulin Human Regular 250 units/ Sodium Chloride 252.5 ml @ 0 mls/hr Q24H IV 10/24/17 13:00 11/23/17 12:59 10/25/17 10:41 93 MLS/HR Insulin Human Lispro (humaLOG) SLIDING SCALE [facility] [place] 10/24/17 18:30 10/25/17 07:19 DC 10/24/17 18:58 13 UNITS Ranitidine HCl (zANTac TAB) 300 mg HS PO 10/24/17 21:00 11/23/17 08:59 10/24/17 21:32 300 MG Carbidopa/Levodopa (Sinemet Cr 25/ 100MG Tab) 1 tab TIDM PO 10/24/17 17:45 11/23/17 17:44 10/25/17 06:05 1 TAB Insulin Glargine (Lantus Solostar Pen) PLEASE SEE PROTOCOL TE... TODAY@2100 ONCE [place] 10/24/17 21:00 10/24/17 21:01 DC 10/24/17 21:36 55 UNITS Insulin Glargine (Lantus Solostar Pen) 50 units NOW STAT [place] 10/24/17 14:51 10/24/17 14:52 DC 10/24/17 15:38 50 UNITS Levetiracetam (Keppra Tab) 2,000 mg BID PO 10/25/17 09:00 11/24/17 08:59 10/25/17 08:55 2,000 MG Levetiracetam (Keppra Tab) 2,000 mg 2200 ONCE PO 10/24/17 22:00 10/24/17 22:07 DC 10/24/17 22:23 2,000 MG Insulin Human Lispro (humaLOG) `*, Please use a fi... [facility] 10/25/17 09:15 11/24/17 09:14 10/25/17 09:06 26 UNITS Insulin Glargine (Lantus Solostar Pen) 70 units NOW STAT [place] 10/25/17 07:30 10/25/17 07:31 DC 10/25/17 09:06 70 UNITS (Karen Bernardo CRNP) Objective Vital Signs Date Time Temp Pulse Resp B/P (MAP) Pulse Ox O2 Delivery O2 Flow Rate FiO2 10/25/17 06:45 36.6 85 18 132/63 (86) 96 Room Air 10/24/17 23:45 36.8 87 16 163/62 (95) 95 Room Air 10/24/17 20:05 Room Air 10/24/17 16:03 36.2 88 20 133/75 (94) 96 Room Air (Karen Bernardo CRNP) Physical Exam Notes: General: no distress Eyes: normal inspection, PERLL Respiratory: chest non tender, clear to auscultation, normal breath sounds, no respiratory distress, no accessory muscle use Cardiac: regular rate and rhythm, no rub or gallop, no murmur, no edema, no jvd GI/: active bowel sounds, no abd pain or tenderness, soft, non distended Extremities: normal range of motion, normal strength, non tender Neuro/Psych: alert and oriented x 3, normal mood and affect Skin: normal color, dry (Karen Bernardo CRNP) Laboratory Results Last 24 Hours Test 10/24/17 12:07 10/24/17 12:59 10/24/17 14:30 10/24/17 14:32 Bedside Glucose 357 mg/dl 418 mg/dl 417 mg/dl Sodium Level 137 mmol/L Potassium Level 4.4 mmol/L Chloride Level 106 mmol/L Carbon Dioxide Level 23 mmol/L Anion Gap 8.0 mmol/L Blood Urea Nitrogen 20 mg/dl Creatinine 1.06 mg/dl Est Creatinine Clear Calc Drug Dose 71.6 ml/min Estimated GFR () 70.4 Estimated GFR (Non- 60.7 BUN/Creatinine Ratio 18.6 Random Glucose 359 mg/dl Calcium Level 8.4 mg/dl Beta-Hydroxybutyric Acid 1.77 mg/dL Test 10/24/17 15:26 10/24/17 16:31 10/24/17 17:31 10/24/17 18:28 Bedside Glucose 425 mg/dl 439 mg/dl 448 mg/dl 374 mg/dl Test 10/24/17 19:52 10/24/17 20:55 10/24/17 22:36 10/24/17 23:39 Bedside Glucose 468 mg/dl 433 mg/dl 420 mg/dl 395 mg/dl Test 10/25/17 00:46 10/25/17 02:03 10/25/17 03:00 10/25/17 04:01 Bedside Glucose 365 mg/dl 371 mg/dl 322 mg/dl 301 mg/dl Test 10/25/17 05:19 10/25/17 06:14 10/25/17 06:15 10/25/17 07:10 Bedside Glucose 280 mg/dl 247 mg/dl 233 mg/dl White Blood Count 3.57 K/uL Red Blood Count 2.76 M/uL Hemoglobin 9.7 g/dL Hematocrit 26.9 % Mean Corpuscular Volume 97.5 fL Mean Corpuscular Hemoglobin 35.1 pg Mean Corpuscular Hemoglobin Concent 36.1 g/dl RDW Standard Deviation 46.3 fL RDW Coefficient of Variation 13.2 % Platelet Count 65 K/uL Mean Platelet Volume 10.4 fL Sodium Level 138 mmol/L Potassium Level 4.1 mmol/L Chloride Level 109 mmol/L Carbon Dioxide Level 20 mmol/L Anion Gap 9.0 mmol/L Blood Urea Nitrogen 17 mg/dl Creatinine 0.63 mg/dl Est Creatinine Clear Calc Drug Dose 119.7 ml/min Estimated GFR () 120.4 Estimated GFR (Non- 103.9 BUN/Creatinine Ratio 26.2 Random Glucose 234 mg/dl Estimated Average Glucose 82 mg/dl Hemoglobin A1c 4.5 % Calcium Level 7.4 mg/dl Test 10/25/17 08:16 10/25/17 10:26 Bedside Glucose 224 mg/dl 296 mg/dl (Karen Bernardo, JOSH) Assessment and Plan Ms. Munson is a 51 yo F 1 y/o female here with acute worsening of chronic back pain with right lower radiculopathy. Acute on Chronic Back pain with RLE radiculopathy -Lumbar MRI shows Moderate multilevel narrowing of the spinal canal from L3 through L5 with moderate compromise of the neuroforamina bilaterally at both levels and an old mild compression deformity L1 - will proceed carefully with narcotic administration as patient has a history of abuse but will provide oxycodone to adequately address pain as well as celebrex, tylenol and lidocaine patches. - Titrate Decadron 4 mg from q6h to bid - Consult Ortho - they do not feel she needs urgent surgery and should follow with her surgeons at [place] - PT/OT Liver cirrhosis. chronic pancytopenia - ammonia 179 on the , no acute mental status changes - Continue lactulose and rifaximin T2DM, hyperglycemia - SS, lantus bid - pharmacy glycemic consult for steroid use coverage - placed on insulin gtt requiring very high doses of insulin. Will transfer to telemetry for closer monitoring and begin titrating Decadron down. Will also keep on q1h bsg checks despite insulin gtt protocol calling for less frequent check Hypothyroidism: continue levothyroxine Bipolar disorder, depression: Continue sertraline and mirtazapine Seizure disorder and h/o migraines: Continue levetiracetam, Trileptal, Topamax Asthma: Continue Ventolin and Symbicort GERD: Continue Ranitidine DVT prophylaxis: SCDs Code Status: LEVEL I, FULL Dispo: From home, lives w/ (Karen Bernardo ., JOSH) [employer] Physician Supervision Note: I interviewed and examined the patient. Discussed with Karen Bernardo [employer] and agree with findings and plan as documented in the note. Any exceptions or clarifications are listed here: None Patient complains of poor pain control. However her description of the pain does not fit any radicular distribution. She does have a compression fracture. We are attempting to gingerly use very mild doses of opiates that she has had problems with substance abuse in the past. She remains constipated and will agree to escalated doses of her lactulose she denies attempts at non-opiate management such as Lidoderm patch and Voltaren gel also refusing Tylenol because of her liver disease. She seems fixated on going to [facility] to have a spine surgeon evaluate her there and I have encouraged her to speak with Dr. Sheikh regarding this coordination as he appear to be is no acute reason at this point time to transfer to [facility] Documented By: Erick Rice (Erick Rice M.D.)
[2017-10-25] MEDS ORDERED: INSULIN GLARGINE SOLOSTAR 100 UNITS/ML 3 ML PEN SC ONE (12:00)
[2017-10-25] MEDS ORDERED: DEXAMETHASONE INJ 4 MG in SYRINGE 0 ML IV SCH ×2 (14:00→21:00)
[2017-10-25] MEDS: OXYCODONE HCL IR 5 MG TAB (IMMEDIATE RELEASE) PO PRN ×2 (14:40→23:13)
[2017-10-25] MEDS ORDERED: SODIUM CHLORIDE 0.9% IV SCH (15:00)
[2017-10-25] MEDS ORDERED: INSULIN REGULAR IV SCH (15:00)
[2017-10-25 16:00] VITALS: BP 155/68; PULSE 91; TEMP 36.8; O2SAT 98
[2017-10-25] MEDS ORDERED: HYDROmorphone INJ 0.5 MG/0.5 ML SYR IV SCH (17:30)
[2017-10-25] MEDS: DEXTROSE 50% 50 ML SYR IV PRN ×4 (19:25→23:43)
[2017-10-25 20:26] VITALS: BP 151/64; PULSE 87; TEMP 36.8; O2SAT 98
[2017-10-25] MEDS: INSULIN GLARGINE SOLOSTAR 100 UNITS/ML 3 ML PEN SC SCH (21:00)
[2017-10-25] MEDS: RANITIDINE HCL 150 MG TAB PO SCH (21:14)
[2017-10-25] MEDS: MIRTAZAPINE TAB 15 MG TAB PO SCH (21:17)
[2017-10-25 23:38] VITALS: BP 145/61; PULSE 79; TEMP 36.3; O2SAT 98
[2017-10-26 03:04] VITALS: BP 134/74; PULSE 77; TEMP 36.8; O2SAT 96
[2017-10-26] MEDS: DEXTROSE 50% 50 ML SYR IV PRN ×3 (04:02→10:34)
[2017-10-26 04:48] LABS: HEMATOCRIT 25.1 % (37-47); HEMOGLOBIN 9.2 g/dL (12.0-16.0); MEAN CELL VOLUME 98.4 fL (80-100); MEAN CORPUSCULAR HEMOGLOBIN 36.1 pg (25-34); MEAN CORPUSCULAR HGB CONC 36.7 g/dl (32-36); RED CELL DISTRIBUTION WIDTH CV 13.5 % (11.5-14.5); RED CELL DISTRIBUTION WIDTH SD 48.2 fL (36.4-46.3)
[2017-10-26 04:54] LABS: MEAN PLATELET VOLUME 10.5 fL (7.4-10.4); PLATELET COUNT 73 K/uL (130-400)
[2017-10-26 05:06] LABS: CALCIUM 6.6 mg/dl (8.5-10.1); CREATININE 0.49 mg/dl (0.60-1.20)
[2017-10-26] MEDS: LEVOTHYROXINE 75 MCG TAB PO SCH (06:33)
[2017-10-26 06:56] VITALS: BP 121/69; PULSE 78; TEMP 36.9; O2SAT 99
[2017-10-26] MEDS: CARBIDOPA/LEVODOPA 25/100MG EXT REL TAB PO SCH ×3 (07:30→16:37)
--- NOTE | 2017-10-26 07:38 | Pharmacy Progress Note ---
Pharmacy Glycemic Short Note 2 Date of Service Oct 26, 2017. OUTPATIENT ANTIDIABETIC REGIMEN: * Lantus 40 units BID * Humalog 25 units AC Item Value Date Time Bedside Glucose 73 mg/dl 10/26/17 0612 Bedside Glucose 106 mg/dl H 10/26/17 0517 Bedside Glucose 159 mg/dl H 10/26/17 0417 Bedside Glucose 56 mg/dl *L 10/26/17 0357 Bedside Glucose 54 mg/dl *L 10/26/17 0356 Bedside Glucose 75 mg/dl 10/26/17 0302 Bedside Glucose 93 mg/dl H 10/26/17 0154 Bedside Glucose 103 mg/dl H 10/26/17 0059 Bedside Glucose 163 mg/dl H 10/26/17 0002 Bedside Glucose 66 mg/dl *L 10/25/17 2337 Bedside Glucose 68 mg/dl *L 10/25/17 2336 Bedside Glucose 106 mg/dl H 10/25/17 2237 Bedside Glucose 159 mg/dl H 10/25/17 2119 Bedside Glucose 140 mg/dl H 10/25/17 2102 Bedside Glucose 101 mg/dl H 10/25/17 2043 Bedside Glucose 158 mg/dl H 10/25/17 1944 Bedside Glucose 126 mg/dl H 10/25/17 1913 Bedside Glucose 135 mg/dl H 10/25/17 1900 Bedside Glucose 181 mg/dl H 10/25/17 1802 Bedside Glucose 200 mg/dl H 10/25/17 1705 Bedside Glucose 269 mg/dl H 10/25/17 1600 Bedside Glucose 289 mg/dl H 10/25/17 1440 ASSESSMENT: * Patient was on IV Insulin infusion for ATC Steroids, running at extremely high rates, up to 156 units/hr * Patient transferred to telemetry yesterday at 1500 and changed to NPO to help with insulin drip rates, this allowed patient to come down to goal, but then patient refused Dexamethasone dose at 2100 last night, resulting in 2 episodes of hypoglycemia overnight, treated with IV Dextrose. * Patient received a total of 140 units of Lantus yesterday (last dose at 1200) which is causing patient to still drop, without any IV Dexamethasone since 0800 yesterday. * Patient refusing Dexamethasone because she states it does not help her pain and she wants to get off of insulin drip * Patient known to pharmacy glycemic team, but patient has never been on IV steroids as she is this admission * Will restart diabetic diet this morning without any carb coverage and recheck patient at 1100, unless patient become symptomatic * No Lantus this morning * Seen by Dr Sheikh yesterday, recommend f/u with surgeon in [place] d/t multiple comorbidities PLAN FOR INPATIENT GLYCEMIC CONTROL: * Basal insulin * Hold at this time * IV Insulin infusion - discontinue last night * HumaLog per scale ACHS * NO Prandial insulin with breakfast then resume: * Nutritional / Prandial insulin per carb ratio of 1 unit per 6 grams CHO consumed * Correction factor: 20mg/dL/unit * Goal range 110-140mg/dL
[2017-10-26] MEDS: CeleBREX 100 MG CAP PO SCH (09:00)
[2017-10-26] MEDS: RIFAXIMIN TAB 550 MG TAB PO SCH ×2 (09:00→20:58)
[2017-10-26] MEDS: LIDODERM (LIDOCAINE) PATCH 5% TD SCH (09:00)
[2017-10-26] MEDS: TOPIRAMATE 100 MG TAB PO SCH ×2 (09:00→20:57)
[2017-10-26] MEDS: LEVETIRACETAM 500 MG TAB PO SCH ×2 (09:00→20:57)
[2017-10-26] MEDS: OXCARBAZEPINE 150 MG TAB PO SCH ×2 (09:00→20:58)
[2017-10-26] MEDS: SERTRALINE HCL 50 MG TAB PO SCH (09:00)
[2017-10-26] MEDS: SPIRONOLACTONE 25 MG TAB PO SCH (09:00)
[2017-10-26] MEDS: CALCITONIN SALMON NA 200 IU/AC 3.7 ML BTL SCH (09:00)
[2017-10-26] MEDS: ACETAMINOPHEN 500 MG TAB PO SCH (09:00)
[2017-10-26] MEDS: LACTULOSE SYRUP 10 GM/15 ML BTL 473 ML PO SCH (09:00)
--- NOTE | 2017-10-26 09:40 | DIAGNOSTIC IMAGING REPORT ---
HEAD WITHOUT CONTRAST (CT) CT DOSE: 1140.23 mGy.cm HISTORY: Mental status change 08/13/2017 TECHNIQUE: Multiaxial CT images of the head were performed without the use of intravenous contrast. A dose lowering technique was utilized adhering to the principles of ALARA. Comparison: None. Findings: The paranasal sinuses and mastoid air cells are clear. The calvarium and skull base are intact. The ventricles and sulci are within normal limits. There is no mass, hematoma, midline shift, or acute infarct. Impression: No acute intracranial abnormality. The above report was generated using voice recognition software. It may contain grammatical, syntax or spelling errors. Electronically signed by: Kenroy Yates M.D. 10/26/2017 9:39 AM Dictated Date/Time: 10/26/2017 9:38 AM
[2017-10-26] MEDS ORDERED: DEXTROSE 5% 1000ML 1,000 ML IV SCH (10:45)
[2017-10-26] MEDS: INSULIN HUMAN LISPRO (humaLOG) 100 UNITS/ML VIAL SC SCH ×3 (11:00→20:54)
--- NOTE | 2017-10-26 11:00 | Hospitalist Progress Note ---
Hospitalist Progress Note Date of Service Oct 26, 2017. Subjective Pt evaluation today including: conversation w/ patient, physical exam, chart review, lab review, review of inpatient medication list Voiding: no voiding problems Ms. Munson was awake and interacting earlier in the morning and was not symptomatic with the low blood sugars she experienced over the night and morning however when I came beside she was sleeping deeply without opening her eyes to tactile or verbal stimulation. I did give her a sternal rub which elicited a grimace and movement of all 4 limbs but she did not open her eyes. Unable to obtain review of systems. Medications Medications Administered Medications (Trade) Dose Ordered Sig/Danita Route Start Time Stop Time Status Last Admin Dose Admin Hydromorphone HCl (Dilaudid Inj) 1 mg NOW STAT IV 10/23/17 23:57 10/24/17 00:00 DC 10/24/17 00:19 1 MG Diphenhydramine HCl (Benadryl Extra Strength Cream) 1 appln NOW STAT EXT 10/24/17 00:46 10/24/17 00:52 DC 10/24/17 00:46 1 APPLN Methylprednisolone Sodium Succinate (Solu-Medrol IV) 125 mg NOW STAT IV 10/24/17 04:56 10/24/17 04:58 DC 10/24/17 05:02 125 MG Hydromorphone HCl (Dilaudid Inj) 0.5 mg NOW STAT IV 10/24/17 04:56 10/24/17 04:58 DC 10/24/17 05:02 0.5 MG Magnesium Hydroxide (Milk Of Magnesia Susp) 30 ml Q6H PRN PO 10/24/17 05:45 11/23/17 05:44 10/25/17 12:55 30 ML Ondansetron HCl (Zofran Inj) 4 mg Q6H PRN IV 10/24/17 05:45 11/23/17 05:44 10/25/17 05:15 4 MG Insulin Human Lispro (humaLOG) SLIDING SCALE If C... ACHS SC 10/24/17 12:00 10/24/17 13:30 DC 10/24/17 13:26 21 UNITS Dextrose (Dextrose 50% 50ML Syringe) 25-50ML 25ML FOR ... UD PRN IV 10/24/17 05:45 11/23/17 05:44 10/26/17 07:05 25 ML Lactulose (Chronulac Syrup) 10 gm BID PO 10/24/17 09:00 10/25/17 15:25 DC 10/25/17 08:54 10 GM Levothyroxine Sodium (Synthroid Tab) 75 mcg DAILYBB PO 10/24/17 09:00 11/23/17 08:59 10/26/17 06:33 75 MCG Mirtazapine (Remeron Tab) 45 mg HS PO 10/24/17 21:00 11/23/17 20:59 10/25/17 21:17 45 MG Oxcarbazepine (Trileptal Tab) 300 mg BID PO 10/24/17 09:00 11/23/17 08:59 10/25/17 21:16 300 MG Rifaximin (Xifaxan Tab) 550 mg BID PO 10/24/17 09:00 11/23/17 08:59 10/25/17 21:14 550 MG Sertraline HCl (Zoloft Tab) 50 mg DAILY PO 10/24/17 09:00 11/23/17 08:59 10/25/17 08:56 50 MG Spironolactone (Aldactone Tab) 25 mg QAM PO 10/24/17 09:00 11/23/17 08:59 10/25/17 08:53 25 MG Topiramate (Topamax Tab) 100 mg BID PO 10/24/17 09:00 11/23/17 08:59 10/25/17 21:16 100 MG Dexamethasone Sodium Phosphate 4 mg/Syringe 1 ml @ 1 mls/min Q6H IV 10/24/17 12:00 10/25/17 11:30 DC 10/25/17 06:05 1 MLS/MIN Dexamethasone Sodium Phosphate (Dexamethasone Inj Pf) 10 mg STK-MED ONCE .ROUTE 10/24/17 05:57 10/24/17 05:58 DC 10/24/17 05:57 10 MG Acetaminophen (Tylenol Tab) 1,000 mg BID PO 10/24/17 10:45 11/23/17 10:44 10/25/17 21:16 1,000 MG Celecoxib (CeleBREX CAP) 100 mg DAILY PO 10/24/17 10:45 11/23/17 10:44 10/25/17 08:54 100 MG Miscellaneous (Insulin Protocol Goal Range (Other)) 1 ea ONE ONCE N/A 10/24/17 12:30 10/24/17 12:33 DC 10/24/17 12:30 1 EA Miscellaneous (Insulin Protocol Moderate Stress Level) 1 ea ONE ONCE N/A 10/24/17 12:30 10/24/17 12:32 DC 10/24/17 12:30 1 EA Insulin Human Regular 250 units/ Sodium Chloride 252.5 ml @ 0 mls/hr Q24H IV 10/24/17 13:00 10/25/17 15:30 DC 10/25/17 13:21 156 MLS/HR Insulin Human Lispro (humaLOG) SLIDING SCALE [facility] 10/24/17 18:30 10/25/17 07:19 DC 10/24/17 18:58 13 UNITS Ranitidine HCl (zANTac TAB) 300 mg HS PO 10/24/17 21:00 11/23/17 08:59 10/25/17 21:14 300 MG Carbidopa/Levodopa (Sinemet Cr 25/ 100MG Tab) 1 tab TIDM PO 10/24/17 17:45 11/23/17 17:44 10/25/17 17:07 1 TAB Insulin Glargine (Lantus Solostar Pen) PLEASE SEE PROTOCOL TE... TODAY@2100 ONCE [place] 10/24/17 21:00 10/24/17 21:01 DC 10/24/17 21:36 55 UNITS Insulin Glargine (Lantus Solostar Pen) 50 units NOW STAT [place] 10/24/17 14:51 10/24/17 14:52 [place] 10/24/17 15:38 50 UNITS Levetiracetam (Keppra Tab) 2,000 mg BID PO 10/25/17 09:00 11/24/17 08:59 10/25/17 21:18 2,000 MG Levetiracetam (Keppra Tab) 2,000 mg 2200 ONCE PO 10/24/17 22:00 10/24/17 22:07 DC 10/24/17 22:23 2,000 MG Insulin Human Lispro (humaLOG) [facility] 10/25/17 09:15 10/26/17 07:25 DC 10/25/17 13:26 47 UNITS Insulin Glargine (Lantus Solostar Pen) 70 units NOW STAT [place] 10/25/17 07:30 10/25/17 07:31 DC 10/25/17 09:06 70 UNITS Oxycodone HCl (Roxicodone Immediate Rel Tab) 10 mg Q8H PRN PO 10/25/17 10:45 11/08/17 10:44 10/25/17 23:13 10 MG Insulin Glargine (Lantus Solostar Pen) 70 units NOW ONCE [place] 10/25/17 12:00 10/25/17 12:01 DC 10/25/17 13:27 70 UNITS Insulin Human Regular 500 units/ Sodium Chloride 505 ml @ 0 mls/hr Q24H IV 10/25/17 15:00 10/26/17 07:26 DC 10/25/17 15:26 156 MLS/HR Lactulose (Chronulac Syrup) 25 gm BID PO 10/25/17 21:00 11/24/17 20:59 10/25/17 21:18 25 GM Hydromorphone HCl (Dilaudid Inj) 0.5 mg TODAY@1730 IV 10/25/17 17:30 10/25/17 18:30 DC 10/25/17 18:36 0.5 MG Objective Vital Signs Date Time Temp Pulse Resp B/P (MAP) Pulse Ox O2 Delivery O2 Flow Rate FiO2 10/26/17 06:56 36.9 78 19 121/69 (86) 99 Room Air 10/26/17 03:04 36.8 77 20 134/74 (94) 96 Room Air 10/25/17 23:38 36.3 79 19 145/61 (89) 98 Room Air 10/25/17 20:26 36.8 87 22 151/64 (93) 98 Room Air 10/25/17 20:00 Room Air 10/25/17 16:00 36.8 91 20 155/68 (97) 98 Room Air Physical Exam Notes: General: no distress Eyes: normal inspection, PERLL Respiratory: chest non tender, clear to auscultation, normal breath sounds, no respiratory distress, no accessory muscle use Cardiac: regular rate and rhythm, no rub or gallop, no murmur, no edema, no jvd GI/: active bowel sounds, no abd pain or tenderness, soft, non distended Extremities: normal range of motion, normal strength, non tender Neuro/Psych: obtunded Skin: normal color, dry Laboratory Results Last 24 Hours Test 10/25/17 11:25 10/25/17 12:35 10/25/17 13:39 10/25/17 14:40 Bedside Glucose 302 mg/dl 286 mg/dl 280 mg/dl 289 mg/dl Test 10/25/17 16:00 10/25/17 17:05 10/25/17 18:02 10/25/17 19:00 Bedside Glucose 269 mg/dl 200 mg/dl 181 mg/dl 135 mg/dl Test 10/25/17 19:13 10/25/17 19:44 10/25/17 20:43 10/25/17 21:02 Bedside Glucose 126 mg/dl 158 mg/dl 101 mg/dl 140 mg/dl Test 10/25/17 21:19 10/25/17 22:37 10/25/17 23:36 10/25/17 23:37 Bedside Glucose 159 mg/dl 106 mg/dl 68 mg/dl 66 mg/dl Test 10/26/17 00:02 10/26/17 00:59 10/26/17 01:54 10/26/17 03:02 Bedside Glucose 163 mg/dl 103 mg/dl 93 mg/dl 75 mg/dl Test 10/26/17 03:56 10/26/17 03:57 10/26/17 04:17 10/26/17 04:35 Bedside Glucose 54 mg/dl 56 mg/dl 159 mg/dl White Blood Count 6.40 K/uL Red Blood Count 2.55 M/uL Hemoglobin 9.2 g/dL Hematocrit 25.1 % Mean Corpuscular Volume 98.4 fL Mean Corpuscular Hemoglobin 36.1 pg Mean Corpuscular Hemoglobin Concent 36.7 g/dl RDW Standard Deviation 48.2 fL RDW Coefficient of Variation 13.5 % Platelet Count 73 K/uL Mean Platelet Volume 10.5 fL Sodium Level 131 mmol/L Potassium Level 4.0 mmol/L Chloride Level 103 mmol/L Carbon Dioxide Level 24 mmol/L Anion Gap 4.0 mmol/L Blood Urea Nitrogen 13 mg/dl Creatinine 0.49 mg/dl Est Creatinine Clear Calc Drug Dose 154.0 ml/min Estimated GFR () 130.7 Estimated GFR (Non- 112.8 BUN/Creatinine Ratio 26.4 Random Glucose 121 mg/dl Calcium Level 6.6 mg/dl Ammonia 131.0 umol/L Test 10/26/17 05:17 10/26/17 06:12 10/26/17 06:58 10/26/17 07:00 Bedside Glucose 106 mg/dl 73 mg/dl 63 mg/dl 64 mg/dl Test 10/26/17 07:24 10/26/17 08:18 10/26/17 10:27 Bedside Glucose 102 mg/dl 87 mg/dl 64 mg/dl Assessment and Plan Ms. Munson is a 51 yo F 1 y/o female here with acute worsening of chronic back pain with right lower radiculopathy. Acute on Chronic Back pain with RLE radiculopathy -Lumbar MRI shows Moderate multilevel narrowing of the spinal canal from L3 through L5 with moderate compromise of the neuroforamina bilaterally at both levels and an old mild compression deformity L1 - will proceed carefully with narcotic administration as patient has a history of abuse but will provide oxycodone to adequately address pain as well as celebrex, tylenol and lidocaine patches. - Patient refusing decadron due to elevated sugars so discontinued - Consult Ortho - they do not feel she needs urgent surgery and should follow with her surgeons at [place] - PT/OT T2DM, hyperglycemia - SS, lantus bid - pharmacy glycemic consult for labile blood sugars- 10/25 patient was requiring very high doses on her insulin, over 100 units per hour. She was moved to telemetry for closer monitoring while on these high doses. She was made NPO and decadron was discontinued as above. She was also kept on 1hr bsg checks. During the night her blood sugar did get as low as the 50s. She was again low this morning. A diet was added but with her lethargy she has not eaten so a D5w @ 150 drip will be initiated as well as amp of D50 given per protocol. Metabolic encephalopathy? - unclear etiology of lethargy this morning. She had not been symptomatic with her low blood sugars over the night or earlier in the morning. Sent for a CT of her head which came back negative. Ammonia is decreased from earlier in the week but still high. She does take quite a bit of psych meds at night but had been unaffected yesterday morning. I also do not think this is a narcotic overdose as she has not had narcotics since 2300 last evening. Stat ABG ordered. Dr. Alvarez came bedside to see patient and agreed with plan and to add lactulose enema. Liver cirrhosis. chronic pancytopenia - ammonia 179 on the , 131 this morning - Continue lactulose and rifaximin Hypothyroidism: continue levothyroxine Bipolar disorder, depression: Continue sertraline and mirtazapine Seizure disorder and h/o migraines: Continue levetiracetam, Trileptal, Topamax Asthma: Continue Ventolin and Symbicort GERD: Continue Ranitidine DVT prophylaxis: SCDs Code Status: LEVEL I, FULL Dispo: From home, lives w/ , PT/OT evals
[2017-10-26] MEDS ORDERED: LACTULOSE 200GM/700ML WTR ENEMA PR SCH (11:30)
[2017-10-26 12:22] VITALS: BP 163/82; PULSE 77; TEMP 37.2; O2SAT 99
[2017-10-26] MEDS: UNIT DOSE COMPOUND PO SCH ×2 (13:53→22:15)
[2017-10-26] MEDS: LACTULOSE SYRUP 200 GM, WATER, STERILE IRRIG 700 ML, BARCODE IDENTIFIER 1 EA PR SCH ×4 (13:53→22:14)
[2017-10-26 15:06] VITALS: BP 144/75; PULSE 74; TEMP 37; O2SAT 100
[2017-10-26 15:50] LABS: TOTAL PROTEIN 5.8 gm/dl (6.4-8.2)
[2017-10-26] MEDS ORDERED: NURSING VERBAL MED ORDER ONE (17:45)
[2017-10-26] MEDS: DEXTROSE 5% 1000ML 1,000 ML IV SCH (18:39)
[2017-10-26 18:49] VITALS: BP 154/69; PULSE 78; TEMP 37.1; O2SAT 100
[2017-10-26] MEDS: INSULIN GLARGINE SOLOSTAR 100 UNITS/ML 3 ML PEN SC SCH (20:54)
[2017-10-26] MEDS: MIRTAZAPINE TAB 15 MG TAB PO SCH (20:57)
[2017-10-26] MEDS: RANITIDINE HCL 150 MG TAB PO SCH (20:58)
[2017-10-26 23:50] VITALS: BP 145/78; PULSE 77; TEMP 36.9; O2SAT 98
[2017-10-26] MEDS: ACETAMINOPHEN 325 MG TAB PO PRN (23:55)
[2017-10-27] MEDS: DEXTROSE 5% 1000ML 1,000 ML IV SCH (02:58)
[2017-10-27 03:00] VITALS: BP 164/89; PULSE 76; TEMP 36.8; O2SAT 98
[2017-10-27 04:57] LABS: HEMATOCRIT 26.6 % (37-47); HEMOGLOBIN 9.6 g/dL (12.0-16.0); MEAN CELL VOLUME 97.8 fL (80-100); MEAN CORPUSCULAR HEMOGLOBIN 35.3 pg (25-34); MEAN CORPUSCULAR HGB CONC 36.1 g/dl (32-36); RED CELL DISTRIBUTION WIDTH CV 13.7 % (11.5-14.5); RED CELL DISTRIBUTION WIDTH SD 47.9 fL (36.4-46.3); WHITE BLOOD COUNT 5.47 K/uL (4.8-10.8)
[2017-10-27 05:01] LABS: MEAN PLATELET VOLUME 10.2 fL (7.4-10.4); PLATELET COUNT 82 K/uL (130-400)
[2017-10-27 05:33] LABS: CREATININE 0.49 mg/dl (0.60-1.20); POTASSIUM 3.5 mmol/L (3.5-5.1)
[2017-10-27] MEDS: LEVOTHYROXINE 75 MCG TAB PO SCH (05:53)
[2017-10-27] MEDS ORDERED: NURSING VERBAL MED ORDER SCH (06:00)
[2017-10-27 06:48] VITALS: BP 128/61; PULSE 73; TEMP 36.6; O2SAT 99
[2017-10-27] MEDS: CARBIDOPA/LEVODOPA 25/100MG EXT REL TAB PO SCH ×2 (07:30→11:30)
[2017-10-27] MEDS: CALCITONIN SALMON NA 200 IU/AC 3.7 ML BTL SCH (08:18)
[2017-10-27] MEDS: TOPIRAMATE 100 MG TAB PO SCH ×2 (08:18→20:51)
[2017-10-27] MEDS: LEVETIRACETAM 500 MG TAB PO SCH ×2 (08:19→20:51)
[2017-10-27] MEDS: OXCARBAZEPINE 150 MG TAB PO SCH ×2 (08:19→20:50)
[2017-10-27] MEDS: CeleBREX 100 MG CAP PO SCH (08:19)
[2017-10-27] MEDS: RIFAXIMIN TAB 550 MG TAB PO SCH ×2 (08:20→20:51)
[2017-10-27] MEDS: LIDODERM (LIDOCAINE) PATCH 5% TD SCH (08:20)
[2017-10-27] MEDS: SERTRALINE HCL 50 MG TAB PO SCH (08:20)
[2017-10-27] MEDS: SPIRONOLACTONE 25 MG TAB PO SCH (08:21)
[2017-10-27] MEDS: INSULIN HUMAN LISPRO (humaLOG) 100 UNITS/ML VIAL SC SCH ×4 (08:25→21:02)
[2017-10-27] MEDS: LACTULOSE SYRUP 10 GM/15 ML BTL 473 ML PO SCH ×2 (09:14→20:52)
--- NOTE | 2017-10-27 09:29 | Pharmacy Progress Note ---
Pharmacy Glycemic Short Note 2 Date of Service Oct 27, 2017. OUTPATIENT ANTIDIABETIC REGIMEN: * Lantus 40 units BID * Humalog 25 units AC Test 10/26/17 10:27 10/26/17 10:53 10/26/17 11:20 10/26/17 15:51 Bedside Glucose 64 mg/dl (70-90) 108 mg/dl (70-90) 110 mg/dl (70-90) 104 mg/dl (70-90) Test 10/26/17 20:46 10/26/17 23:51 10/27/17 03:51 10/27/17 04:47 Bedside Glucose 98 mg/dl (70-90) 99 mg/dl (70-90) 104 mg/dl (70-90) Random Glucose 116 mg/dl (70-99) Test 10/27/17 07:14 Bedside Glucose 113 mg/dl (70-90) ASSESSMENT: 10/27/17 * Patient remains on dextrose at 150 cc/hr - will stop ~1430 today * After receiving > 250 units of insulin on 10/25, patient received ZERO units of insulin yesterday * PO intake appears to be poor as per documentation * BSGs remain stable and only slowly starting to rise * Will plan to add back a conservative carb ratio but hold off on basal until BSGs > 180 mg/dL when on the IV dextrose 10/26/17 * Patient was on IV Insulin infusion for ATC Steroids, running at extremely high rates, up to 156 units/hr * Patient transferred to telemetry yesterday at 1500 and changed to NPO to help with insulin drip rates, this allowed patient to come down to goal, but then patient refused Dexamethasone dose at 2100 last night, resulting in 2 episodes of hypoglycemia overnight, treated with IV Dextrose. * Patient received a total of 140 units of Lantus yesterday (last dose at 1200) which is causing patient to still drop, without any IV Dexamethasone since 0800 yesterday. * Patient refusing Dexamethasone because she states it does not help her pain and she wants to get off of insulin drip * Patient known to pharmacy glycemic team, but patient has never been on IV steroids as she is this admission * Will restart diabetic diet this morning without any carb coverage and recheck patient at 1100, unless patient become symptomatic * No Lantus this morning * Seen by Dr Sheikh yesterday, recommend f/u with surgeon in [place] d/t multiple comorbidities PLAN FOR INPATIENT GLYCEMIC CONTROL: * Basal insulin * Continue to hold - order placed on hold by Dr. Alvarez * HumaLog per scale ACHS - resume conservative carb ratio * Nutritional / Prandial insulin per carb ratio of 1 unit per 9 grams CHO consumed * Correction factor: 20mg/dL/unit * Goal range 110-140mg/dL
[2017-10-27] MEDS: OXYCODONE HCL IR 5 MG TAB (IMMEDIATE RELEASE) PO PRN ×2 (09:51→20:49)
[2017-10-27 10:30] VITALS: BP 155/79
[2017-10-27 10:40] VITALS: BP 152/77; PULSE 78; TEMP 37.1; O2SAT 95
--- NOTE | 2017-10-27 16:53 | Hospitalist Progress Note ---
Hospitalist Progress Note Date of Service Oct 27, 2017. Subjective Pt evaluation today including: conversation w/ patient, physical exam, chart review, lab review, review of inpatient medication list Pain: 9/10 sharp back pain PO Intake: Tolerating PO diet Voiding: no voiding problems Patient awake, alert and back to baseline mentally today. She is tolerating a PO diet. She currently complains of a 9/10 sharp stabbing lower back pain that radiates down her RLE. The patient denies fevers, chills, sweats, chest pain, palpitations, claudication, cough, wheezing, shortness of breath, nausea, vomiting, abdominal pain, dysuria, hematuria, urinary retention, paralysis, weakness, numbness and tingling. Additional Comments: See HPI for pertinent positives and negatives. All other systems reviewed and negative. Objective Vital Signs Date Time Temp Pulse Resp B/P (MAP) Pulse Ox O2 Delivery O2 Flow Rate FiO2 10/27/17 10:40 37.1 78 20 152/77 (102) 95 Room Air 10/27/17 08:00 Room Air 10/27/17 06:48 36.6 73 18 128/61 (83) 99 Room Air 10/27/17 03:00 36.8 76 21 164/89 (114) 98 Room Air 10/26/17 23:59 Room Air 10/26/17 23:50 36.9 77 20 145/78 (100) 98 Room Air 10/26/17 20:00 Room Air 10/26/17 18:49 37.1 78 24 154/69 (97) 100 Room Air Physical Exam Notes: General appearance: +Morbidly obese. Well-developed, well-nourished, no apparent distress Head: Normocephalic, atraumatic Eyes: Normal inspection, PERRL, EOMI ENT: Normal ENT inspection, hearing grossly normal, pharynx normal Neck: Supple, no JVD, trachea midline Respiratory/Chest: Lungs clear to auscultation, normal breath sounds, no respiratory distress Cardiovascular: Regular rate & rhythm, no gallop, no murmur Abdomen/GI: Normal bowel sounds, non-tender, soft Extremities/Musculoskeletal: Normal inspection, no calf tenderness, no pedal edema Neurological/Psych: Alert, normal mood/affect, oriented x 3 Skin: Normal color, warm/dry, no rash Laboratory Results Last 24 Hours Test 10/26/17 20:46 10/26/17 23:51 10/27/17 03:51 10/27/17 04:47 Bedside Glucose 98 mg/dl 99 mg/dl 104 mg/dl White Blood Count 5.47 K/uL Red Blood Count 2.72 M/uL Hemoglobin 9.6 g/dL Hematocrit 26.6 % Mean Corpuscular Volume 97.8 fL Mean Corpuscular Hemoglobin 35.3 pg Mean Corpuscular Hemoglobin Concent 36.1 g/dl RDW Standard Deviation 47.9 fL RDW Coefficient of Variation 13.7 % Platelet Count 82 K/uL Mean Platelet Volume 10.2 fL Sodium Level 137 mmol/L Potassium Level 3.5 mmol/L Chloride Level 108 mmol/L Carbon Dioxide Level 24 mmol/L Anion Gap 5.0 mmol/L Blood Urea Nitrogen 8 mg/dl Creatinine 0.49 mg/dl Est Creatinine Clear Calc Drug Dose 178.0 ml/min Estimated GFR () 130.7 Estimated GFR (Non- 112.8 BUN/Creatinine Ratio 15.7 Random Glucose 116 mg/dl Calcium Level 7.0 mg/dl Ammonia 98.0 umol/L Test 10/27/17 07:14 10/27/17 11:31 10/27/17 14:40 Bedside Glucose 113 mg/dl 176 mg/dl 185 mg/dl Assessment and Plan 51 y/o female with complex medical history here with acute worsening of chronic back pain with right lower radiculopathy. Acute on Chronic Back pain with RLE radiculopathy--ongoing -Lumbar MRI shows Moderate multilevel narrowing of the spinal canal from L3 through L5 with moderate compromise of the neuroforamina bilaterally at both levels and an old mild compression deformity L1 -Decadron d/c'd as pt was refusing due to elevated BSGs -Ortho spine consulted, appreciate recs: Continue to follow w/surgeons at [place] given her multiple medical problems -Avoid oxycodone when possible due to h/o abuse -Continue Celebrex, Tylenol, Lidocaine patch - PT/OT evaluated today, recommend inpatient rehab or 24 hour care if returns home Lethargy, hepatic encephalopathy--improving -Pt alert and oriented today -Head CT negative -ABG unremarkable -Ammonia trending down, 98 on 10/27, down from 107 -Continue lactulose and Xifaxan DM II, hyperglycemia--improving - BSGs have been labile, pharmacy consulted for glycemic control - While on Decadron was requiring insulin drip up to 150 units/hr. Pt made NPO and Decadron d/c'd, pt then hypoglycemic - Pt eating normally now, will d/c dextrose - Spoke with pharmacy, will resume Lantus tonight presuming BSGs are acceptable - Continue Lantus, ISS per pharmacy Hypothyroidism--stable -TSH WNL -Continue levothyroxine Bipolar disorder, depression -Continue sertraline and mirtazapine Seizure disorder and h/o migraines -Continue levetiracetam, Trileptal, Topamax Asthma--stable, no exacerbation -Continue Ventolin and Symbicort GERD -Continue Ranitidine DVT prophylaxis -SCDs Code Status -Level I, FULL RESUSCITATION STATUS Dispo -Lives at home w/ -PT/OT recommend inpatient therapy
[2017-10-27] MEDS: INSULIN GLARGINE SOLOSTAR 100 UNITS/ML 3 ML PEN SC SCH (19:00)
[2017-10-27 19:11] VITALS: BP 152/77; PULSE 78; TEMP 37.1; O2SAT 95
[2017-10-27] MEDS: MIRTAZAPINE TAB 15 MG TAB PO SCH (20:52)
[2017-10-27] MEDS: RANITIDINE HCL 150 MG TAB PO SCH (20:53)
[2017-10-27 23:05] VITALS: BP 125/71; PULSE 71; TEMP 36.8; O2SAT 97
[2017-10-28] MEDS ORDERED: INSULIN HUMAN LISPRO (humaLOG) 100 UNITS/ML VIAL SC ONE (02:00)
[2017-10-28] MEDS: ACETAMINOPHEN 325 MG TAB PO PRN (02:30)
[2017-10-28 06:04] LABS: HEMATOCRIT 26.9 % (37-47); HEMOGLOBIN 9.5 g/dL (12.0-16.0); MEAN CELL VOLUME 100.7 fL (80-100); MEAN CORPUSCULAR HEMOGLOBIN 35.6 pg (25-34); MEAN CORPUSCULAR HGB CONC 35.3 g/dl (32-36); PLATELET COUNT 85 K/uL (130-400); RED CELL DISTRIBUTION WIDTH CV 14.1 % (11.5-14.5)
[2017-10-28] MEDS: OXYCODONE HCL IR 5 MG TAB (IMMEDIATE RELEASE) PO PRN ×2 (06:10→14:14)
[2017-10-28] MEDS: CARBIDOPA/LEVODOPA 25/100MG EXT REL TAB PO SCH ×3 (06:10→16:18)
[2017-10-28] MEDS: LEVOTHYROXINE 75 MCG TAB PO SCH (06:11)
[2017-10-28 06:30] VITALS: BP 133/64; PULSE 72; TEMP 36.4; O2SAT 98
[2017-10-28 06:45] LABS: CALCIUM 7.1 mg/dl (8.5-10.1); CREATININE 0.51 mg/dl (0.60-1.20); POTASSIUM 3.8 mmol/L (3.5-5.1)
[2017-10-28] MEDS: LIDODERM (LIDOCAINE) PATCH 5% TD SCH (07:35)
[2017-10-28 08:00] VITALS: O2SAT 98
[2017-10-28] MEDS: CeleBREX 100 MG CAP PO SCH (08:43)
[2017-10-28] MEDS: RIFAXIMIN TAB 550 MG TAB PO SCH (08:43)
[2017-10-28] MEDS: CALCITONIN SALMON NA 200 IU/AC 3.7 ML BTL SCH (08:43)
[2017-10-28] MEDS: SERTRALINE HCL 50 MG TAB PO SCH (08:44)
[2017-10-28] MEDS: LACTULOSE SYRUP 10 GM/15 ML BTL 473 ML PO SCH (08:44)
[2017-10-28] MEDS: OXCARBAZEPINE 150 MG TAB PO SCH (08:44)
[2017-10-28] MEDS: TOPIRAMATE 100 MG TAB PO SCH (08:44)
[2017-10-28] MEDS: LEVETIRACETAM 500 MG TAB PO SCH (08:44)
[2017-10-28] MEDS: SPIRONOLACTONE 25 MG TAB PO SCH (08:45)
[2017-10-28] MEDS: INSULIN GLARGINE SOLOSTAR 100 UNITS/ML 3 ML PEN SC SCH (08:52)
[2017-10-28] MEDS: INSULIN HUMAN LISPRO (humaLOG) 100 UNITS/ML VIAL SC SCH ×3 (08:52→18:12)
--- NOTE | 2017-10-28 13:00 | Pharmacy Progress Note ---
Pharmacy Glycemic Short Note 2 Date of Service Oct 28, 2017. Discharge Recs: * Spoke with Mahsa Kohler re: outpt glycemic management for Ms. Munson. There is a concern for hypoglycemia given that her inpt insulin requirements have been vastly different from her outpt doses. * I recommend starting with 7units of Humalog AC and 15-20units of lantus BID. Ms. Munson is not willing to count carbs and would prefer a set mealtime dose * Strongly recommend she f/u with outpt provider to titrate insulin doses.
[2017-10-28] MEDS ORDERED: RIZATRIPTAN BENZOATE 10 MG TAB PO ONE (14:30)
[2017-10-28 14:32] VITALS: BP 173/71; PULSE 77; TEMP 36.8; O2SAT 96
[2017-10-28] MEDS ORDERED: INSDGIPEN SC (15:11)
[2017-10-28] MEDS ORDERED: INSU100I2 SC (15:11)
[2017-10-28] MEDS ORDERED: LDDP5 TD (15:11)
[2017-10-28] MEDS ORDERED: RXC5 PO (15:11)
[2017-10-28] MEDS ORDERED: CLB100 PO (15:11)
--- NOTE | 2017-10-28 15:31 | Discharge Instructions ---
Discharge Instructions Date of Service Oct 28, 2017. Admission Reason for Admission: Intractable Pain Discharge Discharge Diagnosis / Problem: Intractable back pain Discharge Goals Goal(s): Decrease discomfort, Diagnostic testing Activity Recommendations Activity Limitations: resume your previous activity . Instructions / Follow-Up Instructions / Follow-Up You were admitted with worsening lower back pain. A lumbar MRI was obtained which showed chronic changes and an old compression fracture. You were evaluated by orthopedic spine surgery. There is no emergent need for surgical intervention at this time and it is recommended that you continue to follow up with the spine surgeons at [facility] as you already have scheduled. Your blood sugars became very elevated initially during your hospital stay due to receiving IV steroids, however since these have been stopped, your sugars have been much better controlled with much lower doses of insulin than you take at home. You are now medically stable for discharge. Medications: *You may take oxycodone 10 mg by mouth every 8 hours as needed for pain. Take ONLY as prescribed. *Take Celebrex 100 mg daily. STOP ibuprofen. *You may apply a Lidoderm patch to your lower back. Apply in the morning (9 am ) and leave on for 12 hours, then remove at night (9 pm). Do not leave on for more than 12 hours. *Your insulin dose has been changed as your blood sugars have been controlled on a significantly lower amount of insulin. As your diet may be different at home, this may need to change at a later date back to your previous dosing, but for now please take Lantus 20 units twice a day and Humalog 7 units before meals. *Continue your home medications as prescribed. Follow up: *You will be scheduled to follow up with your primary care provider and endocrinology regarding your medication changes. *Please keep your previously scheduled appointment with spine surgery in [place]. Please seek medical attention if you experience fevers, chills, sweats, dizziness/lightheadedness, loss of consciousness, chest pain, shortness of breath, nausea, vomiting, numbness or tingling. Current Hospital Diet Patient's current hospital diet: Diabetes Type 2 Diet Discharge Diet Recommended Diet: Diabetes Type 2 Diet Pending Studies Studies pending at discharge: no Laboratory Results Hemoglobin A1c Test 10/25/17 06:14 Range/Units Estimated Average Glucose 82 mg/dl Hemoglobin A1c 4.5 4.5-5.6 % Lipid Panel Test 7/25/18 12:19 Range/Units Triglycerides Level 79 0-150 mg/dl Cholesterol Level 123 0-200 mg/dl HDL Cholesterol 59 mg/dl Cholesterol/HDL Ratio 2.1 LDL Cholesterol, Calculated 48 mg/dl Medical Emergencies . Who to Call and When: Medical Emergencies: If at any time you feel your situation is an emergency, please call 911 immediately. . Non-Emergent Contact Non-Emergency issues call your: Primary Care Provider, Surgeon Call Non-Emergent contact if: you have a fever, you have any medication questions . Past History Medical & Surgical History: (1) Right lumbar radiculopathy . "Provider Documentation" section prepared by Mahsa Kohler. . [place] Drug Monitoring Program Search Results: patient reviewed within database Drug Monitoring Findings: Patient had several oxycodone prescriptions for 7 days each from one provider that were listed as being written on the same day but were filled 1-2 weeks apart. No narcotics written or filled since 10/18, this was a 2 day supply.
[2017-10-28 17:00] VITALS: BP 173/71; PULSE 77; TEMP 36.8; O2SAT 96
--- NOTE | 2017-10-28 17:35 | Discharge Summary ---
Discharge Summary Date of Service Oct 28, 2017. Discharge Summary Admission Date: Oct 27, 2017 at 09:23 Discharge Date: Oct 28, 2017 Discharge Disposition: Home Principal Diagnosis: Back pain Problems/Secondary Diagnoses: Chronic lumbar compression fracture, hepatic encephalopathy, cirrhosis, DM II, hypothyroidism, bipolar disorder, depression, seizure disorder, migraines, asthma, GERD Immunizations: Have You Had Influenza Vaccine: Yes Influenza Vaccine Date: Feb 02, 2013 History of Tetanus Vaccine?: utd Tetanus Immunization Date: Jun 11, 2008 History of Pneumococcal: SEE LAST PACKET Pneumococcal Date: Nov 13, 2008 History of Hepatitis B Vaccine: Unknown Hepatitis Immunization Date: Jan 12, 1996 Procedures: LUMBAR SPINE W/O CONTRAST HISTORY: Pain severe right lumbar radiculopathy TECHNIQUE: Multiplanar multisequence MRI of the lumbar spine was performed without the use of contrast. COMPARISON: None. FINDINGS: For the purpose of the report the L5-S1 disc space will be located on axial image 2829. Signal characteristics of the vertebral bodies are in general unremarkable. There is significant degenerative change of the vertebral endplates as well as degenerative disc change throughout. There is a moderate wedge deformity of L1 considered old. There are operative changes consistent with a posterior laminectomy from L3 through S1. L1-L2: Old compression deformity L1. Partial congenital and/or degenerative fusion anterior aspect of the T12-L1 vertebral bodies. No significant compromise of the spinal canal. Mild broad-based bulging disc combined with mild posterior osteophytic reaction. This partially effaces the anterior subarachnoid space. L2-L3: Mild broad-based disc bulge. Minimal impact anterior thecal sac. L3-L4: Broad-based posterior disc herniation combined with posterior osteophytic reaction. Mild compromise of the neuroforamina bilaterally. L4-L5: Broad-based disc herniation combine with posterior osteophytic reaction. Posterior laminectomy. Moderate/significant narrowing of the neuroforamina bilaterally. L5-S1: Minimal broad-based disc bulge. No major compromise of the spinal canal. IMPRESSION: 1. Findings consistent with prior operative change including L3-S1 laminectomy and fusion as well as a partial anterior endplate fusion of the T12 L1 L2 complex. Components of this are degenerative. 2. Moderate multilevel narrowing of the spinal canal from L3 through L5 with moderate compromise of the neuroforamina bilaterally at both levels.. This is considered most prominent at the L4-L5 level bilaterally. 3. Old mild compression deformity L1 Consultations: Orthopedics Medication Reconciliation New Medications: Insulin Lispro (Human) (Humalog Kwikpen) 100 Unit/Ml Inj 7 UNITS SC AC for 30 Days, #90 DOSE Celecoxib (Celebrex) 100 Mg Cap 100 MG PO DAILY for 30 Days, #30 CAP Insulin Glargine (Lantus Solostar) 100 Unit/Ml Inj 20 UNITS SC BID for 30 Days, #60 DOSE Lidocaine (Lidocaine) 1 Patch Tdsy 1 PATCH TD QAM for 30 Days, #30 PATCH Apply to lower back at 9 am every morning, then remove at 9 pm every night. Do not leave on for more than 12 hours. Oxycodone HCl (Oxycodone HCl) 5 Mg Tab 10 MG PO Q8H PRN for Pain for 3 Days, #18 TAB Continued Medications: Cholecalciferol (Vitamin D) 1,000 Unit Tab 5000 UNITS PO QAM Cranberry (Vaccinium Macrocarp (Cranberry Extract) 200 Mg Cap 1 CAP PO BID Diphenhydramine Hcl (Benadryl Allergy) 25 Mg Tab 50 MG PO Q6H for Itching Lactulose (Chronulac) 10 Gm/15 Ml Syrp 15 ML PO BID AT LEAST 2 DOSES/DAY MAY TAKE MORE TO HAVE 2-3 BOWEL MOVEMENTS DAILY Levetiracetam (Levetiracetam) 1,000 Mg Tab 2000 MG PO BID Levodopa/Carbidopa (Carbidopa/Levodopa Sr 25-100 mg) 1 Tab Tabcr TIDM Levothyroxine Sodium (Levothyroxine Sodium) 75 Mcg Tab 75 MCG PO QAM Magnesium Oxide (Mg Supplement (Magnesium) 500 Mg Tab 500 MG PO BID Melatonin (Melatonin Maximum Strengt) 5 Mg Tab 15 MG PO HS, #30 TAB 1 Refill Mirtazapine (Mirtazapine) 15 Mg Tab 45 MG PO HS Multivitamin (Multivitamin) Tab 1 TAB PO QAM Ondansetron (Ondansetron Odt) 8 Mg Soltab 8 MG PO Q6 PRN for Nausea or Vomiting Oxcarbazepine (Trileptal) 300 Mg Tab 300 MG PO BID Probiotic Product (Probiotic) 1 Cap Cap 1 CAP PO QAM Ranitidine (Zantac) 150 Mg Tab 150 MG PO BID, TAB Rifaximin (Xifaxan) 550 Mg Tab 550 MG PO BID Rizatriptan Benzoate (Maxalt) 10 Mg Tab 10 MG PO DIRECTED PRN for Migraine, TAB Sertraline Hcl (Zoloft) 50 Mg Tab 50 MG PO DAILY, TAB Spironolactone (Aldactone) 50 Mg Tab 25 MG PO QAM, TAB Topiramate (Topamax) 100 Mg Tab 100 MG PO BID, TAB Vitamin A (Vitamin A) 8,000 Unit Cap 8000 UNITS PO DAILY Zinc Gluconate (Zinc) 50 Mg Tab 50 MG PO BID Discontinued Medications: Ibuprofen (Advil) 200 Mg Tab 200 MG PO HS Ibuprofen-Diphenhydramine Hcl (Advil Pm) 1 Cap Cap 1 CAP PO HS Insulin Glargine (Lantus Solostar) 100 Unit/Ml Inj 40 UNITS SC BID Insulin Lispro (Human) (Humalog Kwikpen) 100 Unit/Ml Inj 25 UNITS SC AC PLUS SLIDING SCALE Discharge Exam Patient continues to complain of unchanged back pain with radiation down the RLE. She denies any acute complaints. The patient denies fevers, chills, sweats, chest pain, palpitations, claudication, cough, wheezing, shortness of breath, nausea, vomiting, abdominal pain, dysuria, hematuria, urinary retention , paralysis, weakness, numbness and tingling. Constitutional: No fever, No chills, No sweats Eyes: No worsening of vision, No eye pain, No diplopia ENT: No hearing loss, No nasal symptoms, No trouble swallowing Respiratory: No cough, No wheezing, No shortness of breath Cardiovascular: No chest pain, No claudication, No palpitations Abdomen: No pain, No nausea, No vomiting Musculoskeletal: +Back and RLE pain. No muscle pain, No swelling Genitourinary - Female: No dysuria, No urinary retention, No hematuria Neurologic: No paralysis, No weakness, No numbness/tingling Integumentary: No rash, No itch, No color change General appearance: +Morbidly obese. Well-developed, well-nourished, no apparent distress Head: Normocephalic, atraumatic Eyes: Normal inspection, PERRL, EOMI ENT: Normal ENT inspection, hearing grossly normal, pharynx normal Neck: Supple, no JVD, trachea midline Respiratory/Chest: Lungs clear to auscultation, normal breath sounds, no respiratory distress Cardiovascular: Regular rate & rhythm, no gallop, no murmur Abdomen/GI: Normal bowel sounds, non-tender, soft Extremities/Musculoskeletal: Normal inspection, no calf tenderness, no pedal edema Neurological/Psych: Alert, normal mood/affect, oriented x 3 Skin: Normal color, warm/dry, no rash Hospital Course 51 y/o female with complex medical history here with acute worsening of chronic back pain with right lower radiculopathy. Acute on Chronic Back pain with RLE radiculopathy--ongoing -Lumbar MRI shows Moderate multilevel narrowing of the spinal canal from L3 through L5 with moderate compromise of the neuroforamina bilaterally at both levels and an old mild compression deformity L1 -Decadron d/c'd as pt was refusing due to elevated BSGs -Ortho spine consulted, appreciate recs: Continue to follow w/surgeons at [place] given her multiple medical problems. No urgent need for surgical intervention -Avoid oxycodone when possible due to h/o abuse. Pt requesting more frequent oxycodone intervals but will maintain at q8h. D/C w/3 day supply of oxycodone 10 mg PO q8h prn pain -Continue Celebrex, Lidocaine patch - PT/OT recommend inpatient rehab or 24 hour care if returns home Lethargy, hepatic encephalopathy--resolved -Pt remains alert and oriented -Head CT negative -ABG unremarkable -Ammonia trending down, 98 on 10/27, down from 107 -Continue lactulose and Xifaxan DM II, hyperglycemia--improving - BSGs have been labile, pharmacy consulted for glycemic control - While on Decadron was requiring insulin drip up to 156 units/hr. Pt made NPO and Decadron d/c'd, pt then hypoglycemic. Insulin drip d/c'd, started on dextrose - BSGs more stable now. Dextrose was d/c'd and Lantus resumed at 20 units SC BID - Spoke w/pharmacy prior to discharge. Pt's BSGs acceptable with only half of the insulin regimen she was taking at home, likely due to a better diet while inpatient. However, since pt had been hypoglycemic for a few nights here, will discharge to home on Lantus 20 units SC BID and Humalog 7 units SC AC for now - Endocrinology follow up scheduled, can then reassess sugars and increase insulin regimen again if needed Hypothyroidism--stable -TSH WNL this admission -Continue levothyroxine Bipolar disorder, depression -Continue sertraline and mirtazapine Seizure disorder and h/o migraines -Continue levetiracetam, Trileptal, Topamax Asthma--stable, no exacerbation -Continue Ventolin and Symbicort GERD -Continue Ranitidine DVT prophylaxis -SCDs Code Status -Level I, FULL RESUSCITATION STATUS Dispo -Lives at home w/ -PT/OT recommend inpatient therapy or 24 hour care. Case management met w/ who states he will provide 24 hour care, denies manager social work needs Total Time Spent: Greater than 30 minutes This includes examination of the patient, discharge planning, medication reconciliation, and communication with other providers. Discharge Instructions Please refer to the electronic Patient Visit Report (Discharge Instructions) for additional information. Follow-Up PCP Endocrinology 11/17 Ortho spine 11/21 Additional Copies To Olena Little DO
== END 2017-10-28 18:20 | disposition home or self-care (01) | DRG 552 ==
LOC: C.EDB 23:16 → C.MSN 10-24 05:53 → EDBEDREQ 10-24 06:48 → EDBEDREQSVC 10-24 06:55 → ENRESERV 10-24 07:13 → EDBEDREQ 10-25 11:06 → ENRESERV 10-25 12:58 → C.2T 10-25 14:19 → OBSVTOIN 10-27 09:23 → CANRESERV 10-27 16:39 → ENRESERV 10-27 16:39 → CANRESERV 10-27 18:31 → ENRESERV 10-27 18:31 → C.MS4W 10-27 19:03
PROVIDERS: ADMIT Hospitalist; ATTEND Nurse Practitioner Family
DX: M48.56XS Collapsed vertebra, not elsewhere classified, lumbar region, sequela of fracture (principal); K76.6 Portal hypertension; D61.818 Other pancytopenia; K72.10 Chronic hepatic failure without coma; M54.16 Radiculopathy, lumbar region; J45.909 Unspecified asthma, uncomplicated; F31.9 Bipolar disorder, unspecified; K74.60 Unspecified cirrhosis of liver; E11.43 Type 2 diabetes mellitus with diabetic autonomic (poly)neuropathy; E03.9 Hypothyroidism, unspecified; G43.909 Migraine, unspecified, not intractable, without status migrainosus; F11.10 Opioid abuse, uncomplicated; Z79.4 Long term (current) use of insulin; Z88.1 Allergy status to other antibiotic agents; Z88.0 Allergy status to penicillin; Z88.8 Allergy status to other drugs, medicaments and biological substances; Z88.5 Allergy status to narcotic agent; G40.909 Epilepsy, unspecified, not intractable, without status epilepticus; Z87.440 Personal history of urinary (tract) infections; E11.65 Type 2 diabetes mellitus with hyperglycemia

== ENCOUNTER → 2017-10-23 | Outpatient (CLI) | payer BC ==
[2017-10-23 13:00] LABS: CREATININE RANDOM URINE 62.7 mg/dl
== END | disposition home or self-care (01) ==
LOC: C.LABSPEC 11:47
PROVIDERS: ATTEND Internal Medicine Endocrinology, Diabetes & Metabolism
DX: K74.60 Unspecified cirrhosis of liver (principal); K76.9 Liver disease, unspecified; G40.909 Epilepsy, unspecified, not intractable, without status epilepticus; K31.84 Gastroparesis; E03.9 Hypothyroidism, unspecified; E06.3 Autoimmune thyroiditis; E66.9 Obesity, unspecified

== ENCOUNTER → 2017-11-05 | Outpatient (CLI) | payer BC ==
[~2017-11-05] MED LIST changes: -CARB25TA14 PO; +CARB25TA16; +CLB100 PO; +DIPH1TAB87 PO; +GADAVIST IV PRN; -IBUP-1050 PO; -IBUP1CAP30 PO; +LDDP5 TD; +RXC5 PO
--- NOTE | 2017-11-05 11:43 | DIAGNOSTIC IMAGING REPORT ---
MRI OF THE BRAIN COMBO INTERNAL AUDITORY CANAL PROTOCOL CLINICAL HISTORY: Asymmetric sensorineural hearing loss, right-sided greater than left. COMPARISON STUDY: CT of the brain dated 10/26/2017. TECHNIQUE: MRI of the brain was performed utilizing various T1 and T2-weighted sequences in the axial, sagittal, and coronal planes. Contrast-enhanced sequences were acquired following the administration of 9.5 cc of Gadavist. Additional high-resolution imaging was performed through the skull base both pre and post contrast to assess the internal auditory canals. The examination is modestly degraded by motion artifact. FINDINGS: Brain parenchyma: There is mild involutional change. Minimal periventricular microangiopathic disease is observed. There is no hemorrhage or mass effect. There is no restricted diffusion to suggest acute ischemia. No enhancing mass lesion is identified on the postcontrast images. Braxton-white matter differentiation is preserved. No extra-axial fluid collection is seen. The cerebellar tonsils are normal in configuration. Ventricles, sulci, and cisterns: Normal in configuration. Internal auditory canals: No enhancing mass lesion is identified in the cerebellopontine angle bilaterally. There is no mass or abnormal enhancement seen along the course of the internal auditory canals. The middle ear structures are normal as imaged. Pituitary and sella: Unremarkable. Intracranial vasculature: Normal flow voids are maintained at the skull base. Orbits: The bony orbits are grossly intact. Orbital contents are normal in appearance noting bilateral ocular lens implants. Sinuses and mastoids: Trace mucosal thickening is seen in the right sphenoid sinus. The remaining nasal sinuses and mastoid air cells are clear. Calvarium: Unremarkable. Cervical cord: Partially visualized cervical spinal cord is normal in morphology and signal intensity. IMPRESSION: 1. No acute intracranial abnormality. 2. Unremarkable MRI assessment of the internal auditory canals. Electronically signed by: Aiden Randolph M.D. 11/05/2017 11:42 AM Dictated Date/Time: 11/05/2017 11:36 AM
== END | disposition home or self-care (01) ==
LOC: C.MRI 09:37
PROVIDERS: ATTEND Physician Assistant
DX: H90.41 Sensorineural hearing loss, unilateral, right ear, with unrestricted hearing on the contralateral side (principal)

== ENCOUNTER → 2017-11-14 | Outpatient (CLI) | payer BC ==
[~2017-11-14] MED LIST changes: +ALEN70TA2 PO; +CELE100C PO; +CRFUDL PO; -GADAVIST IV PRN; +HYDR25CA PO; +INSDGIPEN SQ; +INSU100I2 SQ; +MIRT45TA3 PO; +RANI300T2 PO; +SPIR25TA PO
[2017-11-14 13:16] LABS: ALKALINE PHOSPHATASE 223 U/L (45-117); ALT/SGPT 42 U/L (12-78); AST/SGOT 40 U/L (15-37); BLOOD UREA NITROGEN 10 mg/dl (7-18); CALCIUM 7.8 mg/dl (8.5-10.1); CARBON DIOXIDE 24 mmol/L (21-32); CREATININE 0.51 mg/dl (0.60-1.20); GLUCOSE 119 mg/dl (70-99); POTASSIUM 4.2 mmol/L (3.5-5.1); SODIUM 139 mmol/L (136-145); TOTAL PROTEIN 5.9 gm/dl (6.4-8.2)
== END | disposition home or self-care (01) ==
LOC: C.LAB 09:15
PROVIDERS: ATTEND Family Medicine
DX: R60.0 Localized edema (principal)

== ENCOUNTER 2017-11-15 04:11 | Observation (INO) | payer BC, OTHER ==
[~2017-11-15] VITALS: Ht 165.1 cm; Wt 116.0 kg
[~2017-11-15 04:11] MED LIST changes: -ALEN70TA2 PO; -CELE100C PO; -CRFUDL PO; -HYDR25CA PO; -INSDGIPEN SQ; -INSU100I2 SQ; -MIRT45TA3 PO; -RANI300T2 PO; -SPIR25TA PO
[2017-11-15] MEDS ORDERED: KETOROLAC TROMETHAMINE 30 MG/ML VIAL IV STA (04:59)
[2017-11-15] MEDS ORDERED: INSDGIPEN SQ (05:14)
[2017-11-15] MEDS ORDERED: INSU100I2 SQ (05:16)
[2017-11-15] MEDS ORDERED: ALEN70TA2 PO (05:25)
[2017-11-15] MEDS ORDERED: HYDR25CA PO (05:27)
[2017-11-15] MEDS ORDERED: RANI300T2 PO (05:27)
[2017-11-15] MEDS ORDERED: SPIR25TA PO (05:37)
[2017-11-15] MEDS ORDERED: HYDROmorphone INJ 0.5 MG/0.5 ML SYR IV STA (05:41)
[2017-11-15 05:53] LABS: HEMATOCRIT 29.3 % (37-47); HEMOGLOBIN 10.3 g/dL (12.0-16.0); MEAN CORPUSCULAR HEMOGLOBIN 35.5 pg (25-34); MEAN CORPUSCULAR HGB CONC 35.2 g/dl (32-36); RED CELL DISTRIBUTION WIDTH SD 51.4 fL (36.4-46.3); WHITE BLOOD COUNT 3.24 K/uL (4.8-10.8)
[2017-11-15 05:55] LABS: MEAN PLATELET VOLUME 10.1 fL (7.4-10.4); PLATELET COUNT 97 K/uL (130-400)
[2017-11-15 06:08] LABS: CALCIUM 7.7 mg/dl (8.5-10.1); CREATININE 0.52 mg/dl (0.60-1.20); POTASSIUM 4.5 mmol/L (3.5-5.1); TOTAL PROTEIN 5.8 gm/dl (6.4-8.2)
--- NOTE | 2017-11-15 06:27 | EMERGENCY ROOM VISIT NOTE ---
History First contact with patient: 04:34 Chief Complaint: BACK PAIN Stated Complaint: BACK PAIN History of Present Illness The patient is a 51 year old female who presents to the Emergency Room with complaints of severe low back pain that radiates down her right leg for the past few months and got steadily worse over the past few days. Patient states she was let go from the [facility] and was reestablished with [facility]. She is an appointment in November. Patient has been taken OxyIR with no real improvement of her pain. Patient states her family doctor fired her from her practice. She states the family doctor does not feel comfortable giving her narcotics. Patient states she cannot care for herself at home. She is using a walker and a bedside commode. The had to take a leave of absence from work. Patient is well-known to this ER for frequent ER visits. She was just discharged from this facility for back pain. She had a recent MRI. She describes the pain as severe, 8 out of 10. Worse with movement and better with rest. Patient denies loss of bowel bladder control, saddle anesthesia, fever, chills, IV drug abuse. Review of Systems An 10 system review of systems was completed with positives and pertinent negatives listed in the HPI. Past Medical/Surgical History Medical Problems: (1) Asthma (2) Bipol I, Rec Epis (Or Current) Depressed, Unspecified (3) Borderline personality disorder (4) Cirrhosis (5) Closed right hip fracture (6) Depression (7) Diab Ashley Wo Comp Type Ii Or Nos/Not Uncontrolled (8) Diabetic gastroparesis (9) Heart murmur (10) History of hepatic encephalopathy (11) Hyponatremia (12) Hypothyroidism (13) Intractable pain (14) Major depressive disorder with psychotic features (15) Migraines (16) Murmur (17) Myelodysplastic syndrome (18) Opiate abuse, continuous (19) Pancytopenia (20) Peptic ulcer disease (21) Portal Hypertension (22) Seizure disorder (23) Shingles (24) Suicidal ideation (25) UTI (urinary tract infection) Surgical Problems: (1) H/O nasal septoplasty (2) History of appendectomy (3) History of cholecystectomy (4) History of hysterectomy (5) History of kyphoplasty (6) History of tonsillectomy (7) s/p spinal stimulator placement Family History Depression Hypertension Social History Smoking Status: Never Smoker Alcohol Use: none Drug Use: none Marital Status: Housing Status: lives with family Occupation Status: disabled Current/Historical Medications Scheduled Alendronate Sodium (Fosamax), 70 MG PO WK Cholecalciferol (Vitamin D), 5,000 UNITS PO QAM Cranberry (Vaccinium Macrocarp (Cranberry Extract), 200 MG PO BID Diphenhydramine Hcl (Benadryl Allergy), 50 MG PO Q6H Hydroxyzine Pamoate (Vistaril), 25 MG PO HS Insulin Glargine (Lantus Solostar), 20 UNITS SQ AMPM Insulin Lispro (Human) (Humalog Kwikpen), 7 UNITS SQ AC Lactulose (Chronulac), 15 ML PO BID Levetiracetam (Levetiracetam), 2,000 MG PO BID Levodopa/Carbidopa (Carbidopa/Levodopa Sr 25-100 mg), TIDM Levothyroxine Sodium (Levothyroxine Sodium), 75 MCG PO QAM Lidocaine (Lidocaine), 1 PATCH TD QAM Magnesium Oxide (Mg Supplement (Magnesium), 500 MG PO BID Melatonin (Melatonin Maximum Strengt), 15 MG PO HS Multivitamin (Multivitamin), 1 TAB PO QAM Oxcarbazepine (Trileptal), 300 MG PO BID Probiotic Product (Probiotic), 1 CAP PO QAM Ranitidine Hcl (Zantac), 300 MG PO HS Rifaximin (Xifaxan), 550 MG PO BID Sertraline Hcl (Zoloft), 50 MG PO DAILY Spironolactone (Aldactone), 50 MG PO QAM Spironolactone (Aldactone), 25 MG PO NOON Topiramate (Topamax), 100 MG PO BID Vitamin A (Vitamin A), 8,000 UNITS PO DAILY Zinc Gluconate (Zinc), 50 MG PO BID Scheduled PRN Ondansetron (Ondansetron Odt), 8 MG PO Q6 PRN for Nausea or Vomiting Oxycodone HCl (Oxycodone HCl), 10 MG PO Q8H PRN for Pain Rizatriptan Benzoate (Maxalt), 10 MG PO DIRECTED PRN for Migraine Physical Exam Vital Signs Date Time Temp Pulse Resp B/P (MAP) Pulse Ox O2 Delivery O2 Flow Rate FiO2 11/15/17 05:47 72 16 133/71 98 Room Air 11/15/17 04:17 36.7 73 20 131/65 99 Room Air Physical Exam VITALS: Vitals are noted on the nurse's note and reviewed by myself. Vital signs stable. GENERAL: White female well known to the ER, in no acute distress, nondiaphoretic , well-developed well-nourished. SKIN: Capillary reflex less than 2 seconds. HEENT: Normocephalic. PERRLA. EOMI. Nares patent. Mucous membranes moist. Neck is supple without nuchal rigidity. HEART: Regular rate and rhythm without murmurs gallops or rubs. LUNGS: Clear to auscultation bilaterally without wheezes, rales or rhonchi. No retractions or accessory muscle use. ABDOMEN: Positive bowel sounds x 4. Normal tympanic percussion. Soft, nontender, without masses or organomegaly. Perkins sign negative. No guarding or rebound tenderness. MUSCULOSKELETAL: No gross musculoskeletal defects. No pedal edema. No calf tenderness. No thoracic or lumbar tenderness on exam. Positive straight leg raise on the right. NEURO: Patient was alert and oriented to person place and time. Normal sensation to light and sharp touch. Deep tendon reflexes 2+ patella bilaterally. no focal neurological deficits. Medical Decision & Procedures Laboratory Results 11/15/17 05:32 Red Blood Count 2.90, Mean Corpuscular Volume 101.0, Mean Corpuscular Hemoglobin 35.5, Mean Corpuscular Hemoglobin Concent 35.2, Mean Platelet Volume 10.1 11/15/17 05:32 Test 11/15/17 05:32 White Blood Count 3.24 K/uL (4.8-10.8) Red Blood Count 2.90 M/uL (4.2-5.4) Hemoglobin 10.3 g/dL (12.0-16.0) Hematocrit 29.3 % (37-47) Mean Corpuscular Volume 101.0 fL (80-100) Mean Corpuscular Hemoglobin 35.5 pg (25-34) Mean Corpuscular Hemoglobin Concent 35.2 g/dl (32-36) Platelet Count 97 K/uL (130-400) Mean Platelet Volume 10.1 fL (7.4-10.4) RDW Standard Deviation 51.4 fL (36.4-46.3) RDW Coefficient of Variation 14.0 % (11.5-14.5) Anion Gap 9.0 mmol/L (3-11) Est Creatinine Clear Calc Drug Dose 162.9 ml/min Estimated GFR () 128.2 Estimated GFR (Non- 110.6 BUN/Creatinine Ratio 21.6 (10-20) Calcium Level 7.7 mg/dl (8.5-10.1) Total Bilirubin 1.4 mg/dl (0.2-1) Direct Bilirubin 0.5 mg/dl (0-0.2) Aspartate Amino Transf (AST/SGOT) 38 U/L (15-37) Alanine Aminotransferase (ALT/SGPT) 33 U/L (12-78) Alkaline Phosphatase 215 U/L (45-117) Total Protein 5.8 gm/dl (6.4-8.2) Albumin 3.0 gm/dl (3.4-5.0) Medications Administered Medications (Trade) Dose Ordered Sig/Danita Route Start Time Stop Time Status Last Admin Dose Admin Hydromorphone HCl (Dilaudid Inj) 0.5 mg NOW STAT IV 11/15/17 05:41 11/15/17 05:42 DC 11/15/17 05:47 0.5 MG ED Course Prior records/ancillary studies reviewed. Triage Nursing notes reviewed. Additional history obtained from The patient's history was concerning for back pain. Differential diagnosis: Etiologies such as musculoskeletal, disc herniation, fracture, aortic disease, metastatic disease, cord compression, discitis, infection, renal colic, gastrointestinal, acute exacerbation of chronic back pain, sciatica, cauda equina, as well as others were entertained. Physical findings: As above. No focal neurologic findings noted. ER treatment provided: Toradol On reassessment the patient felt better. Diagnostics interpreted by me: The labs revealed pancytopenia baseline per patient's chart review. Imaging studies: LUMBAR SPINE W/O CONTRAST HISTORY: Pain severe right lumbar radiculopathy TECHNIQUE: Multiplanar multisequence MRI of the lumbar spine was performed without the use of contrast. COMPARISON: None. FINDINGS: For the purpose of the report the L5-S1 disc space will be located on axial image 2829. Signal characteristics of the vertebral bodies are in general unremarkable. There is significant degenerative change of the vertebral endplates as well as degenerative disc change throughout. There is a moderate wedge deformity of L1 considered old. There are operative changes consistent with a posterior laminectomy from L3 through S1. L1-L2: Old compression deformity L1. Partial congenital and/or degenerative fusion anterior aspect of the T12-L1 vertebral bodies. No significant compromise of the spinal canal. Mild broad-based bulging disc combined with mild posterior osteophytic reaction. This partially effaces the anterior subarachnoid space. L2-L3: Mild broad-based disc bulge. Minimal impact anterior thecal sac. L3-L4: Broad-based posterior disc herniation combined with posterior osteophytic reaction. Mild compromise of the neuroforamina bilaterally. L4-L5: Broad-based disc herniation combine with posterior osteophytic reaction. Posterior laminectomy. Moderate/significant narrowing of the neuroforamina bilaterally. L5-S1: Minimal broad-based disc bulge. No major compromise of the spinal canal. IMPRESSION: 1. Findings consistent with prior operative change including L3-S1 laminectomy and fusion as well as a partial anterior endplate fusion of the T12 L1 L2 complex. Components of this are degenerative. 2. Moderate multilevel narrowing of the spinal canal from L3 through L5 with moderate compromise of the neuroforamina bilaterally at both levels.. This is considered most prominent at the L4-L5 level bilaterally. 3. Old mild compression deformity L1 The above report was generated using voice recognition software. It may contain grammatical, syntax or spelling errors. Electronically signed by: Kenroy Yates M.D. Consultation: A consultation was placed with medicine, Dr. Beatty. The case was discussed and diagnostics were reviewed. Patient will be evaluated by him. This appears to be consistent with intractable back pain. Patient refuses to leave and would like to try rehab. She was informed she was just admitted to the hospital and does not need to be readmitted. She is willing to try rehab with PT and OT for her back problem. Medicine was consulted. Recent MRI was reviewed. The patient's physical examination and detailed history did not reveal any red flags for back pain such as those listed in the differential diagnosis. Therefore advanced diagnostics and consultations were felt to be unwarranted. By the evaluation outlined above emergent etiologies such as fracture, aortic disease, metastatic disease, infection, renal colic, gastrointestinal, cord compression, cauda equina, as well as others were deemed relatively unlikely. The pt informed about the findings as listed above. All questions were answered and pleased with the treatment. Case reviewed with my attending The chart was completed utilizing [employer] Speech voice recognition software. Grammatical errors, random word insertions, pronoun errors, and incomplete sentences are an occassional consequence of this system due to software limitations, ambient noise, and hardware issues. Any formal questions or concerns about the content, text, or information contained within the body of this dictation should be directly addressed to the physician assistant professor of spanish for clarification. Medical Decision As above Medication Reconcilliation Current Medication List: was personally reviewed by me Blood Pressure Screening Patient's blood pressure: Normal blood pressure Impression Primary Impression: Intractable pain Additional Impression: Low back pain Departure Information Dispostion Being Evaluated By Hospitalist Condition [facility] Referrals Olena Little DO (PCP) Patient Instructions My [facility] Problem Qualifiers
[2017-11-15 06:31] LABS: BASO % 1.5 %; BASO ABS # 0.05 K/uL (0-0.2); EOS % 5.2 %; EOS ABS # 0.17 K/uL (0-0.5); LYMPH % 31.5 %; LYMPH ABS # 1.02 K/uL (1.2-3.4); MONO ABS # 0.29 K/uL (0.11-0.59); NEUT % 52.8 %; NEUT ABS # 1.71 K/uL (1.4-6.5)
--- NOTE | 2017-11-15 06:37 | EMERGENCY ROOM VISIT NOTE ---
ED Visit Note First contact with patient: 04:34 I saw this patient in conjunction with Rahel Wright PA-C. I agree with her decision making and treatment plan.
[2017-11-15 07:00] VITALS: O2SAT 97; Ht 165.1 cm; Wt 116.0 kg
[2017-11-15] MEDS ORDERED: ONDANSETRON 8MG OD TAB PO PRN (09:00)
[2017-11-15] MEDS ORDERED: GLUCOSE 40% GEL 15 GM TUBE PO PRN (09:00)
[2017-11-15] MEDS ORDERED: CARBOHYDRATES FOR HYPOGLYCEMIA PO PRN (09:00)
[2017-11-15] MEDS ORDERED: ENOXAPARIN 40 MG/0.4 ML SYR SQ SCH (09:00)
[2017-11-15] MEDS ORDERED: GLUCOSE 10 TABS/TUBE PO PRN (09:00)
[2017-11-15] MEDS ORDERED: ACETAMINOPHEN 325 MG TAB PO PRN (09:00)
[2017-11-15] MEDS ORDERED: SPIRONOLACTONE 100 MG TAB PO SCH (09:00)
[2017-11-15] MEDS ORDERED: MAGNESIUM HYDROXIDE SUSP 30 ML UDC PO PRN (09:00)
[2017-11-15] MEDS ORDERED: DEXTROSE 50% 50 ML SYR IV PRN (09:00)
[2017-11-15] MEDS ORDERED: GLUCAGON FOR INJ 1 MG VIAL SQ PRN (09:00)
[2017-11-15] MEDS ORDERED: POLYETHYLENE (MIRALAX) 17 GM PACK PO PRN (09:00)
[2017-11-15] MEDS ORDERED: CELE100C PO (09:16)
--- NOTE | 2017-11-15 10:01 | History and Physical ---
History & Physical Date & Time of Service: Nov 15, 2017 at 09:39 Chief Complaint: Back Pain Primary Care Physician: Olena Little DO History of Present Illness Source: patient, clinic records, hospital records This is a 51 y/o female with a history of chronic lumbar compression fracture, hepatic encephalopathy, cirrhosis, DM II, hypothyroidism, bipolar disorder, depression, seizure disorder, migraines, asthma, and GERD who presented to the ED on 11/15 with low back pain. Patient is well known to our ED and hospital. Patient was recently discharged on 10/28 with the same. She reports she can no longer go to her [place] surgeon because her insurance won't pay for it, stating she has not been seen by them in 5 years, however PDMP shows that she did in fact see them just last month as they had provided oxycodone, so it seems more likely that she was discharged from their practice instead. She is now attempting to see a specialist in [place] but states this is not until November. She states she cannot take care of herself at home and is willing to try rehab, although she is skeptical this will help with her pain. She complains of severe low back pain radiating down her right leg but denies numbness or tingling. She is continent of urine and bowel. She denies any other complaints. The patient denies fevers, chills, sweats, chest pain, palpitations, claudication, cough, wheezing, shortness of breath, nausea, vomiting, abdominal pain, dysuria, hematuria, urinary retention, paralysis, weakness, numbness and tingling. Past Medical/Surgical History Medical Problems: (1) Acute bronchitis (2) Acute bronchitis (3) Acute hepatic encephalopathy (4) Alkaline phosphatase elevation (5) Altered mental status (6) Altered mental status (7) Anemia (8) Anemia (9) Anemia (10) Asthma (11) Back pain (12) Back pain (13) Bipol I, Rec Epis (Or Current) Depressed, Unspecified (14) Blepharitis of both eyes (15) Borderline personality disorder (16) Bradycardia (17) Breakthrough seizure (18) Burn (19) Change in mental status (20) Change in mental status (21) Change in mental status (22) Change in mental status (23) Chest pain (24) Chronic low back pain (25) Chronic low back pain (26) Cirrhosis (27) Closed head injury (28) Closed head injury (29) Closed right hip fracture (30) Cough (31) Dehydration (32) Dehydration (33) Depression (34) Diab Ashley Wo Comp Type Ii Or Nos/Not Uncontrolled (35) Diabetic gastroparesis (36) Diarrhea (37) Dizziness (38) Dizziness (39) Facial laceration (40) Failure of outpatient treatment (41) Fall (42) Fall (43) Fall (44) Fatigue (45) Gastritis (46) Head trauma (47) Head trauma (48) Heart murmur (49) Hemorrhoid (50) Hemorrhoids (51) Hepatic encephalopathy (52) Hepatic encephalopathy (53) Hepatic encephalopathy (54) Hepatic encephalopathy (55) Hepatic encephalopathy (56) Hepatic encephalopathy (57) Hepatic encephalopathy (58) Hepatic encephalopathy (59) Hepatic encephalopathy (60) Hepatic encephalopathy (61) Hepatic encephalopathy (62) Hepatic encephalopathy (63) Hepatic encephalopathy (64) Hepatic encephalopathy (65) Hepatic encephalopathy (66) Hepatic encephalopathy (67) History of hepatic encephalopathy (68) Hyperammonemia (69) Hyperammonemia (70) Hyperammonemia (71) Hyperammonemia (72) Hypocalcemia (73) Hypocalcemia (74) Hypocalcemia (75) Hypokalemia (76) Hypokalemia (77) Hypokalemia (78) Hypokalemia (79) Hypomagnesemia (80) Hyponatremia (81) Hypothyroidism (82) Increased ammonia level (83) Intertrochanteric fracture of left femur (84) Intractable neuropathic pain of right lower extremity (85) Intractable pain (86) Left foot pain (87) Left shoulder pain (88) Leg pain, right (89) Leg pain, right (90) Leukopenia (91) Lightheaded (92) Low back pain (93) Low back pain (94) Low back pain (95) Major depressive disorder with psychotic features (96) Malingering (97) Medical non-compliance (98) Migraine (99) Migraines (100) Murmur (101) Myelodysplastic syndrome (102) Nausea (103) Nausea (104) Nausea (105) Nausea (106) Nausea (107) Nausea (108) Nausea & vomiting (109) Noncompliance (110) Noncompliance with medication regimen (111) Noncompliance with medications (112) Opiate abuse, continuous (113) Pain in pelvis (114) Pain, joint, ankle, right (115) Pancytopenia (116) Pancytopenia (117) Peptic ulcer disease (118) Persistent vomiting (119) Portal Hypertension (120) Post-operative pain (121) Request for narcotic pain medication (122) Right ear pain (123) Right groin pain (124) Right hip pain (125) Right hip pain (126) Right hip pain (127) Right lumbar radiculopathy (128) Right shoulder pain (129) Right upper lobe pneumonia (130) RUQ abdominal pain (131) Seizure (132) Seizure (133) Seizure disorder (134) Seizure-like activity (135) Sepsis (136) Shingles (137) Suicidal ideation (138) UTI (urinary tract infection) (139) UTI (urinary tract infection) (140) Vomiting (141) Weakness (142) Weakness (143) Weakness (144) Weakness Surgical Problems: (1) H/O nasal septoplasty (2) History of appendectomy (3) History of cholecystectomy (4) History of hysterectomy (5) History of kyphoplasty (6) History of tonsillectomy (7) s/p spinal stimulator placement Family History Depression Hypertension Social History Smoking Status: Never Smoker Smokeless Tobacco Use: No Alcohol Use: occasionally Drug Use: none Marital Status: Housing status: lives with significant other Occupational Status: disabled Immunizations History of Influenza Vaccine: Yes Influenza Vaccine Date: Feb 02, 2013 History of Tetanus Vaccine?: utd Tetanus Immunization Date: Jun 11, 2008 History of Pneumococcal: SEE LAST PACKET Pneumococcal Date: Nov 13, 2008 History of Hepatitis B Vaccine: Unknown Hepatitis Immunization Date: Jan 12, 1996 Allergies Coded Allergies: Amoxicillin (Verified Allergy, Intermediate, HIVES; Has tolerated cephalosporins (Rocephin, Ceftin,Keflex, 10/23/17) Azithromycin (Verified Allergy, Intermediate, HIVES, 10/23/17) Baclofen (Verified Allergy, Intermediate, RASH, 10/23/17) Butalbital (Verified Allergy, Intermediate, HIVES, 10/23/17) Clarithromycin (Verified Allergy, Intermediate, RASH, 10/23/17) Dicyclomine (Verified Allergy, Intermediate, HIVES, 10/23/17) HIVES Penicillins (Verified Allergy, Intermediate, RASH; has tolerated cephs ( Rocephin, Keflex, Ceftin), 10/23/17) PT STATES SHE GETS WELTS FROM CIPRO,LEVAQUIN ALLERGY PER DR ROBLES Tetracyclines (Verified Allergy, Intermediate, DOXYCYCLINE-HIVES, 10/23/17) Sulindac (Verified Allergy, Mild, ALLERGY LISTED "CLONDORAL"--HIVES, ) Adhesives (Verified Allergy, Unknown, RASH, DUODERM=RED,ITCHY, 10/23/17) PLASTIC TAPE IS OK!!! DUODERM=RED,ITCHY Clavulanic Acid (Verified Allergy, Unknown, diahrea , 10/23/17) Metronidazole (Verified Allergy, Unknown, SEIZURE, 10/23/17) Tramadol (Verified Allergy, Unknown, SEIZURES, 10/23/17) Furosemide (Verified Adverse Reaction, Severe, HIVES, 10/23/17) Metoclopramide (Verified Adverse Reaction, Severe, SEIZURES, 10/23/17) Insulin Aspart (Verified Adverse Reaction, Intermediate, NO ALLERGY!!!!!! , 10/23/17) PT SAYS HER INSURANCE (EVEN WHILE HOSPITALIZED) WILL NOT PAY FOR NOVOLOG!! ONLY HUMALOG!!! Blueberry (Verified Adverse Reaction, Mild, STOMACH PAIN, 10/23/17) Home Medications Scheduled Alendronate Sodium (Fosamax), 70 MG PO WK Celecoxib (Celebrex), 100 MG PO DAILY Cholecalciferol (Vitamin D), 5,000 UNITS PO QAM Cranberry (Vaccinium Macrocarp (Cranberry Extract), 200 MG PO BID Diphenhydramine Hcl (Benadryl Allergy), 50 MG PO Q6H Insulin Glargine (Lantus Solostar), 20 UNITS SQ AMPM Insulin Lispro (Human) (Humalog Kwikpen), 7 UNITS SQ AC Lactulose (Chronulac), 15 ML PO BID Levetiracetam (Levetiracetam), 2,000 MG PO BID Levodopa/Carbidopa (Carbidopa/Levodopa Sr 25-100 mg), TIDM Levothyroxine Sodium (Levothyroxine Sodium), 75 MCG PO QAM Lidocaine (Lidocaine), 1 PATCH TD QAM Magnesium Oxide (Mg Supplement (Magnesium), 500 MG PO BID Melatonin (Melatonin Maximum Strengt), 15 MG PO HS Multivitamin (Multivitamin), 1 TAB PO QAM Oxcarbazepine (Trileptal), 300 MG PO BID Probiotic Product (Probiotic), 1 CAP PO QAM Ranitidine Hcl (Zantac), 300 MG PO HS Rifaximin (Xifaxan), 550 MG PO BID Sertraline Hcl (Zoloft), 50 MG PO DAILY Spironolactone (Aldactone), 25 MG PO DAILY Topiramate (Topamax), 100 MG PO BID Vitamin A (Vitamin A), 8,000 UNITS PO DAILY Zinc Gluconate (Zinc), 50 MG PO BID Scheduled PRN Ondansetron (Ondansetron Odt), 8 MG PO Q6 PRN for Nausea or Vomiting Rizatriptan Benzoate (Maxalt), 10 MG PO DIRECTED PRN for Migraine Review of Systems Constitutional: No fever, No chills, No sweats Eyes: No worsening of vision, No eye pain, No diplopia ENT: No hearing loss, No nasal symptoms, No trouble swallowing Respiratory: No cough, No wheezing, No shortness of breath Cardiovascular: No chest pain, No claudication, No palpitations Abdomen: No pain, No nausea, No vomiting Musculoskeletal: +Back pain. No muscle pain, No swelling Genitourinary - Female: No dysuria, No urinary retention, No hematuria Neurologic: No paralysis, No weakness, No numbness/tingling Integumentary: No rash, No itch, No color change Physical Exam Vital Signs Date Time Temp Pulse Resp B/P (MAP) Pulse Ox O2 Delivery O2 Flow Rate FiO2 11/15/17 08:29 79 18 101/55 98 Room Air 11/15/17 07:20 74 16 138/82 97 Room Air 11/15/17 07:00 97 Room Air 11/15/17 05:47 72 16 133/71 98 Room Air 11/15/17 04:17 36.7 73 20 131/65 99 Room Air General appearance: +Morbidly obese. Well-developed, well-nourished, no apparent distress Head: Normocephalic, atraumatic Eyes: Normal inspection, PERRL, EOMI ENT: Normal ENT inspection, hearing grossly normal, pharynx normal Neck: Supple, no JVD, trachea midline Respiratory/Chest: Lungs clear to auscultation, normal breath sounds, no respiratory distress Cardiovascular: Regular rate & rhythm, no gallop, no murmur Abdomen/GI: Normal bowel sounds, non-tender, soft Extremities/Musculoskeletal: Normal inspection, no calf tenderness, no pedal edema Neurological/Psych: Alert, normal mood/affect, oriented x 3 Skin: Normal color, warm/dry, no rash Diagnostics Laboratory Results Results Past 24 Hours Test 11/15/17 05:32 Range/Units White Blood Count 3.24 4.8-10.8 K/uL Red Blood Count 2.90 4.2-5.4 M/uL Hemoglobin 10.3 12.0-16.0 g/dL Hematocrit 29.3 37-47 % Mean Corpuscular Volume 101.0 80-100 fL Mean Corpuscular Hemoglobin 35.5 25-34 pg Mean Corpuscular Hemoglobin Concent 35.2 32-36 g/dl Platelet Count 97 130-400 K/uL Mean Platelet Volume 10.1 7.4-10.4 fL Neutrophils (%) (Auto) 52.8 % Lymphocytes (%) (Auto) 31.5 % Monocytes (%) (Auto) 9.0 % Eosinophils (%) (Auto) 5.2 % Basophils (%) (Auto) 1.5 % Neutrophils # (Auto) 1.71 1.4-6.5 K/uL Lymphocytes # (Auto) 1.02 1.2-3.4 K/uL Monocytes # (Auto) 0.29 0.11-0.59 K/uL Eosinophils # (Auto) 0.17 0-0.5 K/uL Basophils # (Auto) 0.05 0-0.2 K/uL RDW Standard Deviation 51.4 36.4-46.3 fL RDW Coefficient of Variation 14.0 11.5-14.5 % Immature Granulocyte % (Auto) 0.0 % Immature Granulocyte # (Auto) 0.00 0.00-0.02 K/uL Ovalocytes 1+ Sodium Level 143 136-145 mmol/L Potassium Level 4.5 3.5-5.1 mmol/L Chloride Level 113 98-107 mmol/L Carbon Dioxide Level 21 21-32 mmol/L Anion Gap 9.0 3-11 mmol/L Blood Urea Nitrogen 11 7-18 mg/dl Creatinine 0.52 0.60-1.20 mg/dl Est Creatinine Clear Calc Drug Dose 162.9 ml/min Estimated GFR () 128.2 Estimated GFR (Non- 110.6 BUN/Creatinine Ratio 21.6 10-20 Random Glucose 101 70-99 mg/dl Calcium Level 7.7 8.5-10.1 mg/dl Total Bilirubin 1.4 0.2-1 mg/dl Direct Bilirubin 0.5 0-0.2 mg/dl Aspartate Amino Transf (AST/SGOT) 38 15-37 U/L Alanine Aminotransferase (ALT/SGPT) 33 12-78 U/L Alkaline Phosphatase 215 45-117 U/L Total Protein 5.8 6.4-8.2 gm/dl Albumin 3.0 3.4-5.0 gm/dl Impression Assessment and Plan 51 y/o female with a history of chronic lumbar compression fracture, hepatic encephalopathy, cirrhosis, DM II, hypothyroidism, bipolar disorder, depression, seizure disorder, migraines, asthma, and GERD who presented to the ED on 11/15 with low back pain. Pt frequently presents with same complaint. Last lumbar spine MRI done 10/24 shows an old mild compression deformity at L1, moderate multilevel narrowing of spinal canal from L3-L5 with moderate compromise of the neuroforamina bilaterally, and findings consistent w/prior operative changes. Pt was informed by ER staff that she did not require readmission, but she refused to leave and now states she wants to try rehab at [facility]. Acute on chronic back pain, old compression deformity -Admit to med/surg for observation -Toradol 30 mg IV q6h prn pain -Continue Lidoderm patch -Pt had been discharged few weeks ago w/Celebrex 100 mg PO qd, will increase to 100 mg PO BID -Will avoid Decadron for now as last admission this made her sugars very difficult to control and did not provide relief -Will consult spine surgery per pt request -PT/OT for possible rehab Cirrhosis -Continue lactulose and Xifaxan DM II--last hgbA1c 4.5 10/25/17 -Continue Lantus 20 units SC BID and Humalog 7 units SC AC for now -Check BSGs q ac and qhs Hypothyroidism--stable -TSH WNL recently -Continue levothyroxine Bipolar disorder, depression -Continue sertraline Seizure disorder and h/o migraines -Continue levetiracetam, Trileptal, Topamax Asthma--stable, no exacerbation GERD -Continue Ranitidine DVT prophylaxis -Enoxaparin 40 mg SC q24h. Monitor platelets. Currently at 97. Pt is basically immobile so therefore higher DVT risk, so will continue chemical ppx -MIRYAM ribeiro and Fabi Code Status -Level I, FULL RESUSCITATION STATUS Dispo -Lives at home w/ -PT/OT, case management consulted. Pt wants to be placed at rehab. PT/OT had recommended inpt rehab last admission as well Advanced Directives Existing Living Will: No Existing Power of Manager Of Operations: No Resuscitation Status VTE Prophylaxis Will order VTE Prophylaxis: Yes
[2017-11-15] MEDS: KETOROLAC TROMETHAMINE 30 MG/ML VIAL IV PRN ×3 (10:59→23:37)
[2017-11-15] MEDS ORDERED: SPIRONOLACTONE 25 MG TAB PO SCH (12:00)
[2017-11-15] MEDS ORDERED: NURSING VERBAL MED ORDER ONE (12:15)
[2017-11-15 12:29] LABS: INR 1.2 (0.9-1.1)
[2017-11-15] MEDS: RIFAXIMIN TAB 550 MG TAB PO SCH ×2 (12:41→22:12)
[2017-11-15] MEDS: CHOLECALCIFEROL 1000 INTER.UNIT TAB PO SCH (12:43)
[2017-11-15] MEDS ORDERED: RIZATRIPTAN BENZOATE 10 MG TAB PO PRN (12:45)
[2017-11-15] MEDS: OXCARBAZEPINE 150 MG TAB PO SCH ×2 (12:48→22:12)
[2017-11-15] MEDS: MAGNESIUM OXIDE 400 MG TAB PO SCH ×2 (12:49→22:13)
[2017-11-15] MEDS: LEVOTHYROXINE 75 MCG TAB PO SCH (12:50)
[2017-11-15] MEDS: SERTRALINE HCL 50 MG TAB PO SCH (12:51)
[2017-11-15] MEDS: CeleBREX 100 MG CAP PO SCH ×2 (12:52→22:10)
[2017-11-15] MEDS: MULTIVITAMIN TAB PO SCH (12:52)
[2017-11-15] MEDS: TOPIRAMATE 100 MG TAB PO SCH ×2 (12:53→22:12)
[2017-11-15] MEDS: LEVETIRACETAM 500 MG TAB PO SCH ×2 (12:54→22:11)
[2017-11-15] MEDS: LIDODERM (LIDOCAINE) PATCH 5% TD SCH (12:55)
[2017-11-15] MEDS: LACTULOSE SYRUP 10 GM/15 ML BTL 473 ML PO SCH ×2 (12:56→22:11)
[2017-11-15] MEDS: INSULIN HUMAN LISPRO (humaLOG) 100 UNITS/ML VIAL SQ SCH ×3 (13:15→22:19)
[2017-11-15] MEDS: INSULIN GLARGINE SOLOSTAR 100 UNITS/ML 3 ML PEN SQ SCH ×2 (13:15→22:18)
[2017-11-15] MEDS: CARBIDOPA/LEVODOPA 25/100MG EXT REL TAB PO SCH ×2 (13:19→17:06)
[2017-11-15] MEDS: RIZATRIPTAN BENZ (MAXALT-MLT) 10 MG TAB PO PRN (13:56)
[2017-11-15] MEDS: ENOXAPARIN 40 MG/0.4 ML SYR SQ SCH (14:20)
[2017-11-15] MEDS ORDERED: IV FLUIDS COMPLETED PRN (14:45)
[2017-11-15 15:30] VITALS: BP 121/80; PULSE 71; TEMP 36.7; O2SAT 97
[2017-11-15 16:00] VITALS: O2SAT 97
[2017-11-15] MEDS: RANITIDINE HCL 150 MG TAB PO SCH (22:14)
[2017-11-16] MEDS ORDERED: NURSING DECISION MEDICATION ORDER SCH
[2017-11-16 00:39] VITALS: BP 123/72; PULSE 68; TEMP 36.6; O2SAT 96
[2017-11-16] MEDS: LEVOTHYROXINE 75 MCG TAB PO SCH (05:47)
[2017-11-16] MEDS: KETOROLAC TROMETHAMINE 30 MG/ML VIAL IV PRN ×3 (05:47→17:10)
[2017-11-16 06:01] LABS: HEMATOCRIT 27.6 % (37-47); HEMOGLOBIN 9.6 g/dL (12.0-16.0); MEAN CELL VOLUME 101.5 fL (80-100); MEAN CORPUSCULAR HEMOGLOBIN 35.3 pg (25-34); MEAN CORPUSCULAR HGB CONC 34.8 g/dl (32-36); RED CELL DISTRIBUTION WIDTH CV 13.9 % (11.5-14.5); RED CELL DISTRIBUTION WIDTH SD 51.3 fL (36.4-46.3); WHITE BLOOD COUNT 3.01 K/uL (4.8-10.8)
[2017-11-16 06:06] LABS: PLATELET COUNT 92 K/uL (130-400)
[2017-11-16 06:35] LABS: CALCIUM 7.8 mg/dl (8.5-10.1); CREATININE 0.52 mg/dl (0.60-1.20); POTASSIUM 4.4 mmol/L (3.5-5.1)
[2017-11-16 07:03] VITALS: BP 134/77; PULSE 72; TEMP 36.5; O2SAT 99
[2017-11-16] MEDS: CARBIDOPA/LEVODOPA 25/100MG EXT REL TAB PO SCH ×3 (08:18→17:04)
[2017-11-16] MEDS: INSULIN HUMAN LISPRO (humaLOG) 100 UNITS/ML VIAL SQ SCH ×4 (08:51→20:52)
[2017-11-16] MEDS: INSULIN GLARGINE SOLOSTAR 100 UNITS/ML 3 ML PEN SQ SCH ×2 (08:52→20:52)
[2017-11-16] MEDS: MULTIVITAMIN TAB PO SCH (08:59)
[2017-11-16] MEDS: CHOLECALCIFEROL 1000 INTER.UNIT TAB PO SCH (08:59)
[2017-11-16] MEDS: RIFAXIMIN TAB 550 MG TAB PO SCH ×2 (09:00→20:51)
[2017-11-16] MEDS: CeleBREX 100 MG CAP PO SCH ×2 (09:00→20:45)
[2017-11-16] MEDS ORDERED: SPIRONOLACTONE 25 MG TAB PO SCH (09:00)
[2017-11-16] MEDS: LIDODERM (LIDOCAINE) PATCH 5% TD SCH (09:00)
[2017-11-16] MEDS: MAGNESIUM OXIDE 400 MG TAB PO SCH ×2 (09:01→20:51)
[2017-11-16] MEDS: SERTRALINE HCL 50 MG TAB PO SCH (09:01)
[2017-11-16] MEDS: OXCARBAZEPINE 150 MG TAB PO SCH ×2 (09:02→20:51)
[2017-11-16] MEDS: LEVETIRACETAM 500 MG TAB PO SCH ×2 (09:02→20:51)
[2017-11-16] MEDS: TOPIRAMATE 100 MG TAB PO SCH ×2 (09:03→20:51)
[2017-11-16] MEDS: LACTULOSE SYRUP 10 GM/15 ML BTL 473 ML PO SCH ×2 (09:04→20:47)
--- NOTE | 2017-11-16 10:28 | DIAGNOSTIC IMAGING REPORT ---
LUMBAR SPINE RADIOGRAPHS CLINICAL HISTORY: Fracture. Low back and right leg pain. COMPARISON: Lumbar spine MRI October 24, 2017 and lumbar spine radiograph October 05, 2017. FINDINGS: Right femoral internal fixation hardware is partially imaged. Partial fusion of T12, L1 and L2 is noted. Disc space widening with irregularity of the inferior endplate of L4 and superior endplate of L5 is unchanged. No acute lumbar spine fractures identified. Slight concavity of the superior endplate of L3 is unchanged. IMPRESSION: 1. No acute lumbar spine fracture or subluxation identified. 2. No significant change in appearance of the lumbar spine, as described above. Electronically signed by: Rolan Chan M.D. 11/16/2017 10:26 AM Dictated Date/Time: 11/16/2017 10:22 AM
--- NOTE | 2017-11-16 12:51 | Hospitalist Progress Note ---
Hospitalist Progress Note Date of Service Nov 16, 2017. Subjective Pt evaluation today including: conversation w/ patient, physical exam, chart review, lab review, review of studies, review of inpatient medication list Patient continues to complain of severe back pain radiating down her right leg. She requests more pain meds, specifically for narcotics, although she appears to be comfortable. She otherwise denies any other acute complaints. She states she did not move her bowels yesterday but is now moving them today. The patient denies fevers, chills, sweats, chest pain, palpitations, claudication, cough, wheezing, shortness of breath, nausea, vomiting, abdominal pain, dysuria , hematuria, urinary retention, paralysis, weakness, numbness and tingling. The patient notes that she takes 75 mg of spironolactone daily, not 25. Additional Comments: See HPI for pertinent positives and negatives. All other systems reviewed and negative. Objective Vital Signs Date Time Temp Pulse Resp B/P (MAP) Pulse Ox O2 Delivery O2 Flow Rate FiO2 11/16/17 08:10 Room Air 11/16/17 07:03 36.5 72 16 134/77 (96) 99 Room Air 11/16/17 00:39 36.6 68 14 123/72 (89) 96 Room Air 11/16/17 00:00 Room Air 11/15/17 16:00 97 Room Air 11/15/17 15:30 36.7 71 16 121/80 (94) 97 Room Air Physical Exam Notes: General appearance: +Morbidly obese. Well-developed, well-nourished, no apparent distress Head: Normocephalic, atraumatic Eyes: Normal inspection, PERRL, EOMI ENT: Normal ENT inspection, hearing grossly normal, pharynx normal Neck: Supple, no JVD, trachea midline Respiratory/Chest: Lungs clear to auscultation, normal breath sounds, no respiratory distress Cardiovascular: Regular rate & rhythm, no gallop, no murmur Abdomen/GI: Normal bowel sounds, non-tender, soft Extremities/Musculoskeletal: +Pedal edema. Normal inspection, no calf tenderness Neurological/Psych: Alert, normal mood/affect, oriented x 3 Skin: Normal color, warm/dry, no rash Laboratory Results Last 24 Hours Test 11/15/17 16:54 11/15/17 19:48 11/16/17 05:35 11/16/17 08:03 Bedside Glucose 152 mg/dl 217 mg/dl 112 mg/dl White Blood Count 3.01 K/uL Red Blood Count 2.72 M/uL Hemoglobin 9.6 g/dL Hematocrit 27.6 % Mean Corpuscular Volume 101.5 fL Mean Corpuscular Hemoglobin 35.3 pg Mean Corpuscular Hemoglobin Concent 34.8 g/dl RDW Standard Deviation 51.3 fL RDW Coefficient of Variation 13.9 % Platelet Count 92 K/uL Mean Platelet Volume 10.0 fL Sodium Level 140 mmol/L Potassium Level 4.4 mmol/L Chloride Level 112 mmol/L Carbon Dioxide Level 21 mmol/L Anion Gap 7.0 mmol/L Blood Urea Nitrogen 16 mg/dl Creatinine 0.52 mg/dl Est Creatinine Clear Calc Drug Dose 162.9 ml/min Estimated GFR () 128.2 Estimated GFR (Non- 110.6 BUN/Creatinine Ratio 30.0 Random Glucose 128 mg/dl Calcium Level 7.8 mg/dl Test 11/16/17 11:47 Bedside Glucose 171 mg/dl Diagnostic Results Reviewed the following studies and agree with interpretation as follows: LUMBAR SPINE RADIOGRAPHS CLINICAL HISTORY: Fracture. Low back and right leg pain. COMPARISON: Lumbar spine MRI October 24, 2017 and lumbar spine radiograph October 05, 2017. FINDINGS: Right femoral internal fixation hardware is partially imaged. Partial fusion of T12, L1 and L2 is noted. Disc space widening with irregularity of the inferior endplate of L4 and superior endplate of L5 is unchanged. No acute lumbar spine fractures identified. Slight concavity of the superior endplate of L3 is unchanged. IMPRESSION: 1. No acute lumbar spine fracture or subluxation identified. 2. No significant change in appearance of the lumbar spine, as described above. Assessment and Plan 51 y/o female with a history of chronic lumbar compression fracture, hepatic encephalopathy, cirrhosis, DM II, hypothyroidism, bipolar disorder, depression, seizure disorder, migraines, asthma, and GERD who presented to the ED on 11/15 with low back pain. Pt frequently presents with same complaint. Last lumbar spine MRI done 10/24 shows an old mild compression deformity at L1, moderate multilevel narrowing of spinal canal from L3-L5 with moderate compromise of the neuroforamina bilaterally, and findings consistent w/prior operative changes. Pt was informed by ER staff that she did not require readmission, but she refused to leave and now states she wants to try rehab at [facility]. Acute on chronic back pain, old compression deformity--ongoing -Admit to med/surg for observation -Toradol 30 mg IV q6h prn pain. Pt requested to receive this q4h, however that would exceed max dose. Spoke w/pharmacy, and will change timing of available doses to be closer together while she is awake but remain w/in daily limit/max dose -Heating pads ordered -Continue Lidoderm patch -Pt had been discharged few weeks ago w/Celebrex 100 mg PO qd, will increase to 100 mg PO BID -Will avoid Decadron for now as last admission this made her sugars very difficult to control and did not provide relief -Will consult spine surgery per pt request, appreciate recs: Lumbar spine x-ray ordered -Lumbar spine x-ray negative for acute fracture or subluxation. No significant changes from previous studies. -PT/OT evaluate and treat. PT saw, will make recommendations for goals once cleared after Dr. Barreto's input. OT recommends continuing skilled OT services while inpt and after discharge Cirrhosis -Continue lactulose and Xifaxan Peripheral edema -Spironolactone 50 mg PO x1 now, then resume outpt regimen of 50 mg PO qam and 25 mg PO qd@noon tomorrow DM II--last hgbA1c 4.5 10/25/17 -Continue Lantus 20 units SC BID -Humalog sliding scale -Check BSGs q ac and qhs Hypothyroidism--stable -TSH WNL recently -Continue levothyroxine Bipolar disorder, depression -Continue sertraline Seizure disorder and h/o migraines -Continue levetiracetam, Trileptal, Topamax Asthma--stable, no exacerbation GERD -Continue Ranitidine DVT prophylaxis -Enoxaparin 40 mg SC q24h. Monitor platelets. Currently at 92. Pt is basically immobile so therefore higher DVT risk, so will continue chemical ppx -MIRYAM ribeiro and SCDs Code Status -Level I, FULL RESUSCITATION STATUS Dispo -Lives at home w/ -PT/OT, case management consulted. Pt wants to be placed at rehab. PT/OT had recommended inpt rehab last admission as well Continued [facility] stay due to: home environment unsafe for pt
[2017-11-16] MEDS: ENOXAPARIN 40 MG/0.4 ML SYR SQ SCH (13:26)
[2017-11-16] MEDS ORDERED: SPIRONOLACTONE 25 MG TAB PO ONE (13:45)
[2017-11-16 14:56] VITALS: BP 134/78; PULSE 80; TEMP 36.8; O2SAT 98
[2017-11-16] MEDS: RANITIDINE HCL 150 MG TAB PO SCH (20:51)
[2017-11-16 23:20] VITALS: BP 134/77; PULSE 72; TEMP 36.7; O2SAT 96
[2017-11-17] MEDS: KETOROLAC TROMETHAMINE 30 MG/ML VIAL IV PRN ×4 (00:17→18:26)
[2017-11-17] MEDS: LEVOTHYROXINE 75 MCG TAB PO SCH (05:57)
[2017-11-17 06:03] LABS: HEMATOCRIT 26.3 % (37-47); HEMOGLOBIN 9.3 g/dL (12.0-16.0); MEAN CORPUSCULAR HEMOGLOBIN 35.4 pg (25-34); MEAN CORPUSCULAR HGB CONC 35.4 g/dl (32-36); RED CELL DISTRIBUTION WIDTH CV 13.8 % (11.5-14.5); RED CELL DISTRIBUTION WIDTH SD 49.7 fL (36.4-46.3); WHITE BLOOD COUNT 2.78 K/uL (4.8-10.8)
[2017-11-17 06:05] LABS: MEAN PLATELET VOLUME 9.8 fL (7.4-10.4); PLATELET COUNT 86 K/uL (130-400)
[2017-11-17 06:34] LABS: CALCIUM 7.7 mg/dl (8.5-10.1); CREATININE 0.47 mg/dl (0.60-1.20); POTASSIUM 4.3 mmol/L (3.5-5.1)
[2017-11-17 07:08] VITALS: BP 109/69; PULSE 73; TEMP 36.5; O2SAT 97
[2017-11-17] MEDS: CARBIDOPA/LEVODOPA 25/100MG EXT REL TAB PO SCH ×3 (08:11→17:15)
[2017-11-17] MEDS: CeleBREX 100 MG CAP PO SCH ×2 (08:12→20:48)
[2017-11-17] MEDS: SPIRONOLACTONE 25 MG TAB PO SCH ×2 (08:13→12:19)
[2017-11-17] MEDS: LACTULOSE SYRUP 10 GM/15 ML BTL 473 ML PO SCH ×2 (08:14→20:48)
[2017-11-17] MEDS: MAGNESIUM OXIDE 400 MG TAB PO SCH ×2 (08:15→20:48)
[2017-11-17] MEDS: LEVETIRACETAM 500 MG TAB PO SCH ×2 (08:15→20:48)
[2017-11-17] MEDS: TOPIRAMATE 100 MG TAB PO SCH ×2 (08:16→20:49)
[2017-11-17] MEDS: MULTIVITAMIN TAB PO SCH (08:16)
[2017-11-17] MEDS: CHOLECALCIFEROL 1000 INTER.UNIT TAB PO SCH (08:16)
[2017-11-17] MEDS: SERTRALINE HCL 50 MG TAB PO SCH (08:17)
[2017-11-17] MEDS: RIFAXIMIN TAB 550 MG TAB PO SCH ×2 (08:17→20:49)
[2017-11-17] MEDS: OXCARBAZEPINE 150 MG TAB PO SCH ×2 (08:18→20:49)
[2017-11-17] MEDS: LIDODERM (LIDOCAINE) PATCH 5% TD SCH (08:18)
--- NOTE | 2017-11-17 08:23 | Progress Note ---
Subjective Date of Service: Nov 17, 2017. Subjective this pt reports radicular right sided leg pain to her foot however is not lateralizing to define a nerve root. she otherwise has no other symptoms but asks for remeron, vistaril and oxycodone Problem List Medical Problems: (1) Acute bronchitis Status: Acute (2) Acute bronchitis Status: Acute (3) Acute hepatic encephalopathy Status: Acute (4) Alkaline phosphatase elevation Status: Acute (5) Altered mental status Status: Acute (6) Anemia Status: Acute (7) Anemia Status: Acute (8) Anemia Status: Acute (9) Back pain Status: Acute (10) Back pain Status: Acute (11) Bradycardia Status: Acute (12) Breakthrough seizure Status: Acute (13) Burn Status: Acute (14) Change in mental status Status: Acute (15) Change in mental status Status: Acute (16) Change in mental status Status: Acute (17) Change in mental status Status: Acute (18) Chest pain Status: Acute (19) Chronic low back pain Status: Acute (20) Chronic low back pain Status: Acute (21) Closed head injury Status: Acute (22) Cough Status: Acute (23) Dehydration Status: Acute (24) Dehydration Status: Acute (25) Diarrhea Status: Acute (26) Dizziness Status: Acute (27) Facial laceration Status: Acute (28) Failure of outpatient treatment Status: Acute (29) Fall Status: Acute (30) Fall Status: Acute (31) Fall Status: Acute (32) Fatigue Status: Acute (33) Gastritis Status: Acute (34) Head trauma Status: Acute (35) Hemorrhoid Status: Acute (36) Hepatic encephalopathy Status: Acute (37) Hepatic encephalopathy Status: Acute (38) Hepatic encephalopathy Status: Acute (39) Hepatic encephalopathy Status: Acute (40) Hepatic encephalopathy Status: Acute (41) Hepatic encephalopathy Status: Acute (42) Hepatic encephalopathy Status: Acute (43) Hepatic encephalopathy Status: Acute (44) Hepatic encephalopathy Status: Acute (45) Hepatic encephalopathy Status: Acute (46) Hepatic encephalopathy Status: Acute (47) Hepatic encephalopathy Status: Acute (48) Hepatic encephalopathy Status: Acute (49) Hepatic encephalopathy Status: Acute (50) Hepatic encephalopathy Status: Acute (51) Hepatic encephalopathy Status: Acute (52) Hyperammonemia Status: Acute (53) Hyperammonemia Status: Acute (54) Hyperammonemia Status: Acute (55) Hyperammonemia Status: Acute (56) Hypocalcemia Status: Acute (57) Hypocalcemia Status: Acute (58) Hypocalcemia Status: Acute (59) Hypokalemia Status: Acute (60) Hypokalemia Status: Acute (61) Hypokalemia Status: Acute (62) Hypokalemia Status: Acute (63) Hypomagnesemia Status: Acute (64) Increased ammonia level Status: Acute (65) Intertrochanteric fracture of left femur Status: Acute (66) Intractable neuropathic pain of right lower extremity Status: Acute (67) Left foot pain Status: Acute (68) Left shoulder pain Status: Acute (69) Leg pain, right Status: Acute (70) Leukopenia Status: Acute (71) Lightheaded Status: Acute (72) Low back pain Status: Acute (73) Low back pain Status: Acute (74) Low back pain Status: Acute (75) Malingering Status: Acute (76) Medical non-compliance Status: Acute (77) Migraine Status: Acute (78) Nausea Status: Acute (79) Nausea Status: Acute (80) Nausea Status: Acute (81) Nausea Status: Acute (82) Nausea Status: Acute (83) Nausea Status: Acute (84) Nausea & vomiting Status: Acute (85) Noncompliance Status: Acute (86) Noncompliance with medication regimen Status: Acute (87) Noncompliance with medications Status: Acute (88) Pain in pelvis Status: Acute (89) Pain, joint, ankle, right Status: Acute (90) Pancytopenia Status: Acute (91) Persistent vomiting Status: Acute (92) Post-operative pain Status: Acute (93) Request for narcotic pain medication Status: Acute (94) Right ear pain Status: Acute (95) Right groin pain Status: Acute (96) Right hip pain Status: Acute (97) Right hip pain Status: Acute (98) Right lumbar radiculopathy Status: Acute (99) Right upper lobe pneumonia Status: Acute (100) RUQ abdominal pain Status: Acute (101) Seizure Status: Acute (102) Seizure-like activity Status: Acute (103) Sepsis Status: Acute (104) UTI (urinary tract infection) Status: Acute (105) Vomiting Status: Acute (106) Weakness Status: Acute (107) Weakness Status: Acute (108) Weakness Status: Acute (109) Weakness Status: Acute Review of Systems Constitutional: + weakness, + fatigue, No fever, No chills Respiratory: No cough, No shortness of breath, No dyspnea on exertion Cardiac: No chest pain, No orthopnea, No edema Abdomen: No pain, No nausea Musculoskeletal: + joint pain, + muscle pain, No swelling Female : No dysuria, No urinary frequency Neurologic: No memory loss, No weakness Psychiatric: + depression symptoms, + anxiety, No anhedonism Objective Vital Signs Date Time Temp Pulse Resp B/P (MAP) Pulse Ox O2 Delivery O2 Flow Rate FiO2 11/17/17 07:08 36.5 73 16 109/69 (82) 97 Room Air 11/17/17 00:00 Room Air 11/16/17 23:20 36.7 72 16 134/77 (96) 96 Room Air 11/16/17 16:00 Room Air 11/16/17 14:56 36.8 80 134/78 (96) 98 Room Air Physical Exam General Appearance: WD/WN, + mild distress Eyes: normal inspection, PERRL, EOMI, sclerae normal Neck: supple, no JVD Respiratory/Chest: chest non-tender, lungs clear, normal breath sounds Cardiovascular: regular rate, rhythm, no murmur Abdomen: normal bowel sounds, non tender, soft Extremities: no pedal edema, no calf tenderness Neurologic/Psychiatric: no motor/sensory deficits, alert, oriented x 3 Skin: normal color, warm/dry Laboratory Results Last 24 Hours Test 11/16/17 11:47 11/16/17 16:56 11/16/17 20:43 11/17/17 05:33 Bedside Glucose 171 mg/dl 175 mg/dl 151 mg/dl White Blood Count 2.78 K/uL Red Blood Count 2.63 M/uL Hemoglobin 9.3 g/dL Hematocrit 26.3 % Mean Corpuscular Volume 100.0 fL Mean Corpuscular Hemoglobin 35.4 pg Mean Corpuscular Hemoglobin Concent 35.4 g/dl RDW Standard Deviation 49.7 fL RDW Coefficient of Variation 13.8 % Platelet Count 86 K/uL Mean Platelet Volume 9.8 fL Sodium Level 139 mmol/L Potassium Level 4.3 mmol/L Chloride Level 110 mmol/L Carbon Dioxide Level 21 mmol/L Anion Gap 8.0 mmol/L Blood Urea Nitrogen 16 mg/dl Creatinine 0.47 mg/dl Est Creatinine Clear Calc Drug Dose 180.2 ml/min Estimated GFR () 132.6 Estimated GFR (Non- 114.4 BUN/Creatinine Ratio 34.6 Random Glucose 150 mg/dl Calcium Level 7.7 mg/dl Assessment and Plan 51 y/o female with a history of chronic lumbar compression fracture, hepatic encephalopathy, cirrhosis, DM II, hypothyroidism, bipolar disorder, depression, seizure disorder, migraines, asthma, and GERD who presented to the ED on 11/15 with low back pain. Lumbar spine MRI done 10/24 shows an old mild compression deformity at L1, moderate multilevel narrowing of spinal canal from L3-L5 with moderate compromise of the neuroforamina bilaterally, and findings consistent w/ prior operative changes. Pt was informed by ER staff that she did not require readmission, but she refused to leave and now states she wants to try rehab at [facility]. Acute on chronic back pain, old compression deformity--ongoing, Dr Barreto feels this is not surgical will have a EMG to define if nerve root compression -Toradol 30 mg IV q6h prn pain. Lidoderm patch -Pt had been discharged few weeks ago w/Celebrex 100 mg PO qd, will increase to 100 mg PO BID -Will avoid Decadron for now as last admission this made her sugars very difficult to control and did not provide relief -Will consult spine surgery per pt request, appreciate recs: Lumbar spine x-ray ordered -Lumbar spine x-ray negative for acute fracture or subluxation. No significant changes from previous studies. -PT/OT evaluate and treat. OT recommends continuing skilled OT services while inpt and after discharge Cirrhosis lactulose and Xifaxan, clinically is stable, will not check ammonia unless has some clinical signs as typically is chronically mildly elevated Peripheral edema-Spironolactone 50 mg PO qam and 25 mg PO qd@noon tomorrow DM II--last hgbA1c 4.5 10/25/17 -Continue Lantus 20 units SC BID -Humalog sliding scale Hypothyroidism--stable,Continue levothyroxine Bipolar disorder, depression sertraline Seizure disorder and h/o migraines levetiracetam, Trileptal, Topamax Asthma--stable, no exacerbation GERD Ranitidine DVT prophylaxis-Enoxaparin 40 mg SC q24h. Monitor platelets. Currently at 92. Pt is basically immobile so therefore higher DVT risk, so will continue chemical ppx -MIRYAM de santiagoe and SCDs Code Status-Level I, FULL RESUSCITATION STATUS Dispo-Lives at home w/ -PT/OT, case management consulted. Pt wants to be placed at rehab. PT/OT had recommended inpt rehab last admission as well Continued [facility] stay due to: home environment unsafe for pt
[2017-11-17] MEDS: INSULIN HUMAN LISPRO (humaLOG) 100 UNITS/ML VIAL SQ SCH ×4 (09:19→20:47)
[2017-11-17] MEDS: INSULIN GLARGINE SOLOSTAR 100 UNITS/ML 3 ML PEN SQ SCH ×2 (09:20→20:52)
--- NOTE | 2017-11-17 10:32 | CONSULTATION REPORT ---
DATE OF CONSULTATION: 11/16/2017 CHIEF COMPLAINT: Back pain. HISTORY OF PRESENT ILLNESS: Marcelle is 51. She is compromised, multiple medical problems with degenerative disk disease of the lumbar spine. She also had an old compression fracture that has healed and the degenerative segments of L4-L5 of lumbar spine. There is no cauda equina compression, no disk herniation. The facet joints are arthritic. It is a pain generator. PAST MEDICAL HISTORY: Hepatic encephalopathy, cirrhosis, diabetes, bipolar, depression, seizure, migraines, asthma, GERD, and obesity. PAST SURGICAL HISTORY: Appendectomy, cholecystectomy, kyphoplasty, lumbar spine laminectomy, and spinal stimulator placement. FAMILY HISTORY: Depression, hypertension. SOCIAL HISTORY: Nonsmoker, nonalcohol user. . Lives with a significant other. She is disabled. REVIEW OF SYSTEMS: She denies any blurred vision, double vision, tinnitus, or vertigo with me here today. Denies any chest pain, cough, wheezing, shortness of breath. No claudication or palpitations. No nausea or vomiting. Musculoskeletal is positive for back pain, without muscle pain, without extremity issues. PHYSICAL EXAMINATION: GENERAL: She is alert, oriented, morbidly obese. VITAL SIGNS: Blood pressure is stable. Vital signs stable. MUSCULOSKELETAL: As far as her lumbar spine, she does have some pain with percussion and with flexion but no neurological deficits. IMAGING: Plain x-rays were evaluated. MRI scan was evaluated. I went over each and every study. In summary, she has an old compression fracture that has healed and degenerative segment L4-L5 lumbar spine without any significant stenosis. PLAN: This is a very difficult case, and a lot of empathy for the patient but fortunately not a surgical issue. There is not really a surgical pathology. She has too many comorbidities. She also has a spinal cord stimulator. In this unfortunate case, she is only suitable for a prison placement back to may be her treating surgeon, pain medication, pain management, but non-surgery.
[2017-11-17] MEDS ORDERED: hydrOXYzine HCL 25 MG TAB PO PRN (10:45)
[2017-11-17] MEDS: ENOXAPARIN 40 MG/0.4 ML SYR SQ SCH (13:21)
[2017-11-17 14:51] VITALS: BP 130/81; PULSE 74; TEMP 36.5; O2SAT 99
[2017-11-17] MEDS: MIRTAZAPINE TAB 15 MG TAB PO SCH (20:48)
[2017-11-17] MEDS: RANITIDINE HCL 150 MG TAB PO SCH (20:49)
[2017-11-17 22:45] VITALS: BP 102/73; PULSE 72; TEMP 36.5; O2SAT 97
[2017-11-18] MEDS: KETOROLAC TROMETHAMINE 30 MG/ML VIAL IV PRN ×3 (04:46→17:06)
[2017-11-18] MEDS: LEVOTHYROXINE 75 MCG TAB PO SCH (04:46)
[2017-11-18 05:55] LABS: HEMATOCRIT 30.4 % (37-47); MEAN CELL VOLUME 99.3 fL (80-100); MEAN CORPUSCULAR HEMOGLOBIN 35.9 pg (25-34); MEAN CORPUSCULAR HGB CONC 36.2 g/dl (32-36); MEAN PLATELET VOLUME 10.2 fL (7.4-10.4); PLATELET COUNT 106 K/uL (130-400); RED CELL DISTRIBUTION WIDTH CV 13.7 % (11.5-14.5); RED CELL DISTRIBUTION WIDTH SD 49.2 fL (36.4-46.3); WHITE BLOOD COUNT 4.22 K/uL (4.8-10.8)
[2017-11-18 06:28] LABS: CALCIUM 8.2 mg/dl (8.5-10.1); CREATININE 0.53 mg/dl (0.60-1.20); POTASSIUM 4.3 mmol/L (3.5-5.1)
[2017-11-18] MEDS: ONDANSETRON INJ 2 MG/ML 2 ML VIAL IV PRN ×3 (06:47→23:39)
[2017-11-18 07:01] VITALS: BP 151/81; PULSE 76; TEMP 36.6; O2SAT 98
[2017-11-18 07:30] VITALS: BP 134/81; PULSE 81; TEMP 36.6; O2SAT 96
[2017-11-18 08:08] VITALS: O2SAT 96
[2017-11-18] MEDS: INSULIN HUMAN LISPRO (humaLOG) 100 UNITS/ML VIAL SQ SCH ×4 (08:45→21:00)
[2017-11-18] MEDS: OXCARBAZEPINE 150 MG TAB PO SCH ×2 (08:46→21:00)
[2017-11-18] MEDS: TOPIRAMATE 100 MG TAB PO SCH ×2 (08:46→21:00)
[2017-11-18] MEDS: LEVETIRACETAM 500 MG TAB PO SCH ×2 (08:47→21:00)
[2017-11-18] MEDS: RIFAXIMIN TAB 550 MG TAB PO SCH ×2 (08:47→21:00)
[2017-11-18] MEDS: CHOLECALCIFEROL 1000 INTER.UNIT TAB PO SCH (09:00)
[2017-11-18] MEDS: SERTRALINE HCL 50 MG TAB PO SCH (09:00)
[2017-11-18] MEDS: LIDODERM (LIDOCAINE) PATCH 5% TD SCH (09:00)
[2017-11-18] MEDS: SPIRONOLACTONE 25 MG TAB PO SCH ×2 (09:00→12:00)
[2017-11-18] MEDS: CeleBREX 100 MG CAP PO SCH ×2 (09:00→21:00)
[2017-11-18] MEDS: LACTULOSE SYRUP 10 GM/15 ML BTL 473 ML PO SCH ×2 (09:00→21:00)
[2017-11-18] MEDS: CARBIDOPA/LEVODOPA 25/100MG EXT REL TAB PO SCH ×3 (09:00→17:45)
[2017-11-18] MEDS: MAGNESIUM OXIDE 400 MG TAB PO SCH ×2 (09:00→21:00)
[2017-11-18] MEDS: MULTIVITAMIN TAB PO SCH (09:00)
[2017-11-18] MEDS: INSULIN GLARGINE SOLOSTAR 100 UNITS/ML 3 ML PEN SQ SCH ×2 (09:01→21:00)
[2017-11-18 10:02] VITALS: BP 123/70; PULSE 80; O2SAT 96
[2017-11-18] MEDS: RIZATRIPTAN BENZ (MAXALT-MLT) 10 MG TAB PO PRN (12:20)
[2017-11-18] MEDS: ENOXAPARIN 40 MG/0.4 ML SYR SQ SCH (13:52)
[2017-11-18] MEDS: ALUMINUM/MAGNESIUM/SIMETH (MAALOX MAX) 30 ML UDC PO PRN ×2 (14:36→18:40)
[2017-11-18 15:07] VITALS: BP 127/78; PULSE 76; TEMP 36.6; O2SAT 97
[2017-11-18] MEDS ORDERED: hydrOXYzine HCL 25 MG TAB PO PRN (15:15)
--- NOTE | 2017-11-18 16:23 | Progress Note ---
Subjective Date of Service: Nov 18, 2017. Subjective Pt was complaining of chest pain this am with negative ECG during pain, is at the bedside and updated, I voiced my concerns for polypharmacy Problem List Medical Problems: (1) Acute bronchitis Status: Acute (2) Acute bronchitis Status: Acute (3) Acute hepatic encephalopathy Status: Acute (4) Alkaline phosphatase elevation Status: Acute (5) Altered mental status Status: Acute (6) Anemia Status: Acute (7) Anemia Status: Acute (8) Anemia Status: Acute (9) Back pain Status: Acute (10) Back pain Status: Acute (11) Bradycardia Status: Acute (12) Breakthrough seizure Status: Acute (13) Burn Status: Acute (14) Change in mental status Status: Acute (15) Change in mental status Status: Acute (16) Change in mental status Status: Acute (17) Change in mental status Status: Acute (18) Chest pain Status: Acute (19) Chronic low back pain Status: Acute (20) Chronic low back pain Status: Acute (21) Closed head injury Status: Acute (22) Cough Status: Acute (23) Dehydration Status: Acute (24) Dehydration Status: Acute (25) Diarrhea Status: Acute (26) Dizziness Status: Acute (27) Facial laceration Status: Acute (28) Failure of outpatient treatment Status: Acute (29) Fall Status: Acute (30) Fall Status: Acute (31) Fall Status: Acute (32) Fatigue Status: Acute (33) Gastritis Status: Acute (34) Head trauma Status: Acute (35) Hemorrhoid Status: Acute (36) Hepatic encephalopathy Status: Acute (37) Hepatic encephalopathy Status: Acute (38) Hepatic encephalopathy Status: Acute (39) Hepatic encephalopathy Status: Acute (40) Hepatic encephalopathy Status: Acute (41) Hepatic encephalopathy Status: Acute (42) Hepatic encephalopathy Status: Acute (43) Hepatic encephalopathy Status: Acute (44) Hepatic encephalopathy Status: Acute (45) Hepatic encephalopathy Status: Acute (46) Hepatic encephalopathy Status: Acute (47) Hepatic encephalopathy Status: Acute (48) Hepatic encephalopathy Status: Acute (49) Hepatic encephalopathy Status: Acute (50) Hepatic encephalopathy Status: Acute (51) Hepatic encephalopathy Status: Acute (52) Hyperammonemia Status: Acute (53) Hyperammonemia Status: Acute (54) Hyperammonemia Status: Acute (55) Hyperammonemia Status: Acute (56) Hypocalcemia Status: Acute (57) Hypocalcemia Status: Acute (58) Hypocalcemia Status: Acute (59) Hypokalemia Status: Acute (60) Hypokalemia Status: Acute (61) Hypokalemia Status: Acute (62) Hypokalemia Status: Acute (63) Hypomagnesemia Status: Acute (64) Increased ammonia level Status: Acute (65) Intertrochanteric fracture of left femur Status: Acute (66) Intractable neuropathic pain of right lower extremity Status: Acute (67) Left foot pain Status: Acute (68) Left shoulder pain Status: Acute (69) Leg pain, right Status: Acute (70) Leukopenia Status: Acute (71) Lightheaded Status: Acute (72) Low back pain Status: Acute (73) Low back pain Status: Acute (74) Low back pain Status: Acute (75) Malingering Status: Acute (76) Medical non-compliance Status: Acute (77) Migraine Status: Acute (78) Nausea Status: Acute (79) Nausea Status: Acute (80) Nausea Status: Acute (81) Nausea Status: Acute (82) Nausea Status: Acute (83) Nausea Status: Acute (84) Nausea & vomiting Status: Acute (85) Noncompliance Status: Acute (86) Noncompliance with medication regimen Status: Acute (87) Noncompliance with medications Status: Acute (88) Pain in pelvis Status: Acute (89) Pain, joint, ankle, right Status: Acute (90) Pancytopenia Status: Acute (91) Persistent vomiting Status: Acute (92) Post-operative pain Status: Acute (93) Request for narcotic pain medication Status: Acute (94) Right ear pain Status: Acute (95) Right groin pain Status: Acute (96) Right hip pain Status: Acute (97) Right hip pain Status: Acute (98) Right lumbar radiculopathy Status: Acute (99) Right upper lobe pneumonia Status: Acute (100) RUQ abdominal pain Status: Acute (101) Seizure Status: Acute (102) Seizure-like activity Status: Acute (103) Sepsis Status: Acute (104) UTI (urinary tract infection) Status: Acute (105) Vomiting Status: Acute (106) Weakness Status: Acute (107) Weakness Status: Acute (108) Weakness Status: Acute (109) Weakness Status: Acute Review of Systems Constitutional: No fever, No chills Respiratory: No cough, No shortness of breath Cardiac: + chest pain, No edema Abdomen: + nausea, + diarrhea, No pain, No vomiting, No constipation Musculoskeletal: No joint pain, No muscle pain Female : No dysuria, No urinary frequency Neurologic: No memory loss, No weakness, No numbness/tingling Psychiatric: No depression symptoms, No anxiety Objective Vital Signs Date Time Temp Pulse Resp B/P (MAP) Pulse Ox O2 Delivery O2 Flow Rate FiO2 11/18/17 15:07 36.6 76 16 127/78 (94) 97 Room Air 11/18/17 10:02 80 96 11/18/17 08:08 96 Room Air 11/18/17 07:50 Nasal Cannula 11/18/17 07:30 36.6 81 16 134/81 (98) 96 Room Air 11/18/17 07:01 36.6 76 16 151/81 (104) 98 Room Air 11/18/17 00:00 Room Air 11/17/17 22:45 36.5 72 16 102/73 (83) 97 Room Air Physical Exam General Appearance: WD/WN, + mild distress Eyes: normal inspection, sclerae normal Neck: supple, thyroid normal Respiratory/Chest: no respiratory distress, + decreased breath sounds Cardiovascular: regular rate, rhythm, no murmur Abdomen: normal bowel sounds, non tender, soft Extremities: no pedal edema, no calf tenderness Neurologic/Psychiatric: alert, oriented x 3 Laboratory Results Last 24 Hours Test 11/17/17 17:04 11/17/17 20:45 11/18/17 05:28 11/18/17 08:21 Bedside Glucose 124 mg/dl 113 mg/dl 118 mg/dl White Blood Count 4.22 K/uL Red Blood Count 3.06 M/uL Hemoglobin 11.0 g/dL Hematocrit 30.4 % Mean Corpuscular Volume 99.3 fL Mean Corpuscular Hemoglobin 35.9 pg Mean Corpuscular Hemoglobin Concent 36.2 g/dl RDW Standard Deviation 49.2 fL RDW Coefficient of Variation 13.7 % Platelet Count 106 K/uL Mean Platelet Volume 10.2 fL Sodium Level 135 mmol/L Potassium Level 4.3 mmol/L Chloride Level 108 mmol/L Carbon Dioxide Level 20 mmol/L Anion Gap 8.0 mmol/L Blood Urea Nitrogen 14 mg/dl Creatinine 0.53 mg/dl Est Creatinine Clear Calc Drug Dose 159.8 ml/min Estimated GFR () 127.4 Estimated GFR (Non- 109.9 BUN/Creatinine Ratio 27.2 Random Glucose 90 mg/dl Calcium Level 8.2 mg/dl Test 11/18/17 11:58 Bedside Glucose 104 mg/dl Assessment and Plan 51 y/o female with a history of chronic lumbar compression fracture, hepatic encephalopathy, cirrhosis, DM II, hypothyroidism, bipolar disorder, depression, seizure disorder, migraines, asthma, and GERD who presented to the ED on 11/15 with low back pain. Lumbar spine MRI done 10/24 shows an old mild compression deformity at L1, moderate multilevel narrowing of spinal canal from L3-L5 with moderate compromise of the neuroforamina bilaterally, and findings consistent w/ prior operative changes. Acute on chronic back pain, old compression deformity--ongoing, Dr Barreto feels this is not surgical will have a EMG to define if nerve root compression -Toradol 30 mg IV q6h prn pain. Lidoderm patch cannot perform In pt EMG, will use low dose oxycodone and try to control symptoms, her clinical complaints do not fit dermatomal distribution -Pt had been discharged few weeks ago w/Celebrex 100 mg PO qd, will increase to 100 mg PO BID but now states she allergic to it -Will avoid Decadron for now as last admission this made her sugars very difficult to control and did not provide relief -Will consult spine surgery per pt request, appreciate recs: Lumbar spine x-ray ordered -Lumbar spine x-ray negative for acute fracture or subluxation. No significant changes from previous studies. ortho spine surgery does not feel she warrants surgical intervention -PT/OT evaluate and treat. OT recommends continuing skilled OT services while inpt and after discharge, pt not accepted Cirrhosis lactulose and Xifaxan, clinically is stable, will not check ammonia unless has some clinical signs as typically is chronically mildly elevated Peripheral edema-Spironolactone 50 mg PO qam and 25 mg PO qd@noon tomorrow DM II--last hgbA1c 4.5 10/25/17 -Continue Lantus 20 units SC BID -Humalog sliding scale Hypothyroidism--stable,Continue levothyroxine Bipolar disorder, depression sertraline Seizure disorder and h/o migraines levetiracetam, Trileptal, Topamax Asthma--stable, no exacerbation GERD Ranitidine DVT prophylaxis-Enoxaparin 40 mg SC q24h. Monitor platelets. Currently at 92. Pt is basically immobile so therefore higher DVT risk, so will continue chemical ppx -MIRYAM ribeiro and SCDs Code Status-Level I, FULL RESUSCITATION STATUS Dispo-Lives at home w/ -PT/OT, case management consulted. Pt wants to be placed at rehab. PT/OT had recommended in rehab last admission as well Continued [facility] stay due to: home environment unsafe for pt
[2017-11-18] MEDS: RANITIDINE HCL 150 MG TAB PO SCH (21:00)
[2017-11-18] MEDS: MIRTAZAPINE TAB 15 MG TAB PO SCH (21:00)
[2017-11-18 22:47] VITALS: BP 145/77; PULSE 75; TEMP 36.6; O2SAT 96
[2017-11-19] MEDS: ALUMINUM/MAGNESIUM/SIMETH (MAALOX MAX) 30 ML UDC PO PRN ×5 (00:26→18:19)
[2017-11-19] MEDS: ONDANSETRON INJ 2 MG/ML 2 ML VIAL IV PRN ×3 (05:52→18:19)
[2017-11-19] MEDS: LEVOTHYROXINE 75 MCG TAB PO SCH (05:59)
[2017-11-19 07:25] VITALS: BP 141/79; PULSE 79; TEMP 36.7; O2SAT 97
[2017-11-19 07:28] VITALS: O2SAT 97
[2017-11-19] MEDS: RIZATRIPTAN BENZ (MAXALT-MLT) 10 MG TAB PO PRN (08:22)
[2017-11-19] MEDS: CARBIDOPA/LEVODOPA 25/100MG EXT REL TAB PO SCH ×3 (08:30→18:19)
[2017-11-19] MEDS: LACTULOSE SYRUP 10 GM/15 ML BTL 473 ML PO SCH ×2 (08:35→20:39)
[2017-11-19] MEDS: TOPIRAMATE 100 MG TAB PO SCH ×2 (08:36→20:40)
[2017-11-19] MEDS: OXCARBAZEPINE 150 MG TAB PO SCH ×2 (08:37→20:40)
[2017-11-19] MEDS: LEVETIRACETAM 500 MG TAB PO SCH ×2 (08:38→20:41)
[2017-11-19] MEDS: SPIRONOLACTONE 25 MG TAB PO SCH ×2 (08:38→12:45)
[2017-11-19] MEDS: CeleBREX 100 MG CAP PO SCH ×2 (08:46→20:41)
[2017-11-19] MEDS: MAGNESIUM OXIDE 400 MG TAB PO SCH (08:47)
[2017-11-19] MEDS: MULTIVITAMIN TAB PO SCH (08:47)
[2017-11-19] MEDS: RIFAXIMIN TAB 550 MG TAB PO SCH ×2 (08:48→20:42)
[2017-11-19] MEDS: CHOLECALCIFEROL 1000 INTER.UNIT TAB PO SCH (08:48)
[2017-11-19] MEDS: SERTRALINE HCL 50 MG TAB PO SCH (08:49)
[2017-11-19] MEDS: LIDODERM (LIDOCAINE) PATCH 5% TD SCH (08:49)
[2017-11-19] MEDS: INSULIN HUMAN LISPRO (humaLOG) 100 UNITS/ML VIAL SQ SCH ×4 (08:59→20:46)
[2017-11-19] MEDS: INSULIN GLARGINE SOLOSTAR 100 UNITS/ML 3 ML PEN SQ SCH ×2 (09:00→20:47)
[2017-11-19] MEDS: KETOROLAC TROMETHAMINE 30 MG/ML VIAL IV PRN (09:32)
[2017-11-19] MEDS: ENOXAPARIN 40 MG/0.4 ML SYR SQ SCH (14:00)
[2017-11-19 14:57] VITALS: BP 144/77; PULSE 73; TEMP 36.5; O2SAT 99
[2017-11-19 16:15] VITALS: O2SAT 99
[2017-11-19] MEDS: OXYCODONE HCL IR 5 MG TAB (IMMEDIATE RELEASE) PO PRN (16:22)
--- NOTE | 2017-11-19 16:44 | Progress Note ---
Subjective Date of Service: Nov 19, 2017. Subjective ms cobos is complaining of diarrhea and poor appetite, has been intermittantly taking her lactulose, she has had some back pain radiating to her right leg but not consistent with a dermatomal distribution Problem List Medical Problems: (1) Acute bronchitis Status: Acute (2) Acute bronchitis Status: Acute (3) Acute hepatic encephalopathy Status: Acute (4) Alkaline phosphatase elevation Status: Acute (5) Altered mental status Status: Acute (6) Anemia Status: Acute (7) Anemia Status: Acute (8) Anemia Status: Acute (9) Back pain Status: Acute (10) Back pain Status: Acute (11) Bradycardia Status: Acute (12) Breakthrough seizure Status: Acute (13) Burn Status: Acute (14) Change in mental status Status: Acute (15) Change in mental status Status: Acute (16) Change in mental status Status: Acute (17) Change in mental status Status: Acute (18) Chest pain Status: Acute (19) Chronic low back pain Status: Acute (20) Chronic low back pain Status: Acute (21) Closed head injury Status: Acute (22) Cough Status: Acute (23) Dehydration Status: Acute (24) Dehydration Status: Acute (25) Diarrhea Status: Acute (26) Dizziness Status: Acute (27) Facial laceration Status: Acute (28) Failure of outpatient treatment Status: Acute (29) Fall Status: Acute (30) Fall Status: Acute (31) Fall Status: Acute (32) Fatigue Status: Acute (33) Gastritis Status: Acute (34) Head trauma Status: Acute (35) Hemorrhoid Status: Acute (36) Hepatic encephalopathy Status: Acute (37) Hepatic encephalopathy Status: Acute (38) Hepatic encephalopathy Status: Acute (39) Hepatic encephalopathy Status: Acute (40) Hepatic encephalopathy Status: Acute (41) Hepatic encephalopathy Status: Acute (42) Hepatic encephalopathy Status: Acute (43) Hepatic encephalopathy Status: Acute (44) Hepatic encephalopathy Status: Acute (45) Hepatic encephalopathy Status: Acute (46) Hepatic encephalopathy Status: Acute (47) Hepatic encephalopathy Status: Acute (48) Hepatic encephalopathy Status: Acute (49) Hepatic encephalopathy Status: Acute (50) Hepatic encephalopathy Status: Acute (51) Hepatic encephalopathy Status: Acute (52) Hyperammonemia Status: Acute (53) Hyperammonemia Status: Acute (54) Hyperammonemia Status: Acute (55) Hyperammonemia Status: Acute (56) Hypocalcemia Status: Acute (57) Hypocalcemia Status: Acute (58) Hypocalcemia Status: Acute (59) Hypokalemia Status: Acute (60) Hypokalemia Status: Acute (61) Hypokalemia Status: Acute (62) Hypokalemia Status: Acute (63) Hypomagnesemia Status: Acute (64) Increased ammonia level Status: Acute (65) Intertrochanteric fracture of left femur Status: Acute (66) Intractable neuropathic pain of right lower extremity Status: Acute (67) Left foot pain Status: Acute (68) Left shoulder pain Status: Acute (69) Leg pain, right Status: Acute (70) Leukopenia Status: Acute (71) Lightheaded Status: Acute (72) Low back pain Status: Acute (73) Low back pain Status: Acute (74) Low back pain Status: Acute (75) Malingering Status: Acute (76) Medical non-compliance Status: Acute (77) Migraine Status: Acute (78) Nausea Status: Acute (79) Nausea Status: Acute (80) Nausea Status: Acute (81) Nausea Status: Acute (82) Nausea Status: Acute (83) Nausea Status: Acute (84) Nausea & vomiting Status: Acute (85) Noncompliance Status: Acute (86) Noncompliance with medication regimen Status: Acute (87) Noncompliance with medications Status: Acute (88) Pain in pelvis Status: Acute (89) Pain, joint, ankle, right Status: Acute (90) Pancytopenia Status: Acute (91) Persistent vomiting Status: Acute (92) Post-operative pain Status: Acute (93) Request for narcotic pain medication Status: Acute (94) Right ear pain Status: Acute (95) Right groin pain Status: Acute (96) Right hip pain Status: Acute (97) Right hip pain Status: Acute (98) Right lumbar radiculopathy Status: Acute (99) Right upper lobe pneumonia Status: Acute (100) RUQ abdominal pain Status: Acute (101) Seizure Status: Acute (102) Seizure-like activity Status: Acute (103) Sepsis Status: Acute (104) UTI (urinary tract infection) Status: Acute (105) Vomiting Status: Acute (106) Weakness Status: Acute (107) Weakness Status: Acute (108) Weakness Status: Acute (109) Weakness Status: Acute Review of Systems Constitutional: + weakness, + fatigue, No fever, No chills Respiratory: No cough, No shortness of breath, No dyspnea on exertion Cardiac: + edema, No chest pain Abdomen: + nausea, + diarrhea, No pain Musculoskeletal: No joint pain, No muscle pain Female : No dysuria, No hematuria Neurologic: No memory loss, No weakness Psychiatric: No depression symptoms, No anxiety Objective Vital Signs Date Time Temp Pulse Resp B/P (MAP) Pulse Ox O2 Delivery O2 Flow Rate FiO2 11/19/17 14:57 36.5 73 18 144/77 (99) 99 Room Air 11/19/17 08:00 Room Air 11/19/17 07:28 97 Room Air 11/19/17 07:25 36.7 79 18 141/79 (99) 97 Room Air 11/18/17 23:32 Room Air 11/18/17 22:47 36.6 75 16 145/77 (99) 96 Room Air Physical Exam General Appearance: WD/WN, + mild distress Eyes: normal inspection, sclerae normal Neck: supple, no JVD Respiratory/Chest: chest non-tender, lungs clear, normal breath sounds Cardiovascular: regular rate, rhythm, no murmur Abdomen: normal bowel sounds, + distended Extremities: no calf tenderness, + pedal edema Neurologic/Psychiatric: alert, oriented x 3 Laboratory Results Last 24 Hours Test 11/18/17 17:05 11/18/17 20:43 11/19/17 08:09 11/19/17 11:57 Bedside Glucose 125 mg/dl 120 mg/dl 145 mg/dl 124 mg/dl Assessment and Plan 51 y/o female with a history of chronic lumbar compression fracture, hepatic encephalopathy, cirrhosis, DM II, hypothyroidism, bipolar disorder, depression, seizure disorder, migraines, asthma, and GERD who presented to the ED on 11/15 with low back pain. Lumbar spine MRI done 10/24 shows an old mild compression deformity at L1, moderate multilevel narrowing of spinal canal from L3-L5 with moderate compromise of the neuroforamina bilaterally, and findings consistent w/ prior operative changes. Acute on chronic back pain, old compression deformity--ongoing, Dr Kyle feels this is not surgical will have a EMG to define if nerve root compression -Toradol 30 mg IV q6h prn pain. Lidoderm patch cannot perform In pt EMG, will use low dose oxycodone and try to control symptoms, her clinical complaints do not fit dermatomal distribution -Pt had been discharged few weeks ago w/Celebrex 100 mg PO qd, will increase to 100 mg PO BID but now states she allergic to it continue to avoid Decadron as last admission this made her sugars very difficult to control and did not provide relief -Lumbar spine x-ray negative for acute fracture or subluxation. No significant changes from previous studies. ortho spine surgery does not feel she warrants surgical intervention -PT/OT evaluate and treat. Cirrhosis lactulose and Xifaxan, clinically is stable,diarrhea is significant, c diff negative Peripheral edema-Spironolactone 50 mg PO qam and 25 mg PO qd@noon tomorrow DM II--last hgbA1c 4.5 10/25/17 Lantus 20 units SC BID -Humalog sliding scale Hypothyroidism--stable,Continue levothyroxine Bipolar disorder, depression sertraline Seizure disorder and h/o migraines levetiracetam, Trileptal, Topamax Asthma--stable, no exacerbation GERD Ranitidine DVT prophylaxis-Enoxaparin 40 mg SC q24h. Monitor platelets. Currently at 92. Pt is basically immobile so therefore higher DVT risk, so will continue chemical ppx -MIRYAM ribeiro and SCDs Code Status-Level I, FULL RESUSCITATION STATUS Dispo-Lives at home w/ -PT/OT, case management consulted. will arrange outpt follow up with pain clinic, will help bridge to help with pain control Continued [facility] stay due to: home environment unsafe for pt
[2017-11-19] MEDS: SUCRALFATE 1 GM TAB PO SCH (20:39)
[2017-11-19] MEDS: RANITIDINE HCL 150 MG TAB PO SCH (20:42)
[2017-11-19] MEDS: MIRTAZAPINE TAB 15 MG TAB PO SCH (20:43)
[2017-11-20] VITALS: BP 144/75; PULSE 78; TEMP 36.5; O2SAT 97
[2017-11-20] MEDS: LEVOTHYROXINE 75 MCG TAB PO SCH (05:43)
[2017-11-20 07:51] VITALS: BP 108/70; PULSE 78; TEMP 36.9; O2SAT 94
[2017-11-20] MEDS: CARBIDOPA/LEVODOPA 25/100MG EXT REL TAB PO SCH ×2 (08:16→12:21)
[2017-11-20] MEDS: SUCRALFATE 1 GM TAB PO SCH ×2 (08:17→12:21)
[2017-11-20] MEDS: ONDANSETRON INJ 2 MG/ML 2 ML VIAL IV PRN (08:46)
[2017-11-20] MEDS: RIZATRIPTAN BENZ (MAXALT-MLT) 10 MG TAB PO PRN (08:47)
[2017-11-20] MEDS: OXYCODONE HCL IR 5 MG TAB (IMMEDIATE RELEASE) PO PRN (08:47)
[2017-11-20] MEDS: RIFAXIMIN TAB 550 MG TAB PO SCH (08:48)
[2017-11-20] MEDS: LACTULOSE SYRUP 10 GM/15 ML BTL 473 ML PO SCH (08:48)
[2017-11-20] MEDS: LEVETIRACETAM 500 MG TAB PO SCH (08:49)
[2017-11-20] MEDS: CHOLECALCIFEROL 1000 INTER.UNIT TAB PO SCH (08:49)
[2017-11-20] MEDS: MULTIVITAMIN TAB PO SCH (08:50)
[2017-11-20] MEDS: SERTRALINE HCL 50 MG TAB PO SCH (08:50)
[2017-11-20] MEDS: SPIRONOLACTONE 25 MG TAB PO SCH ×2 (08:50→12:20)
[2017-11-20] MEDS: TOPIRAMATE 100 MG TAB PO SCH (08:50)
[2017-11-20] MEDS: OXCARBAZEPINE 150 MG TAB PO SCH (08:50)
[2017-11-20] MEDS: INSULIN HUMAN LISPRO (humaLOG) 100 UNITS/ML VIAL SQ SCH ×2 (08:58→13:14)
[2017-11-20] MEDS: LIDODERM (LIDOCAINE) PATCH 5% TD SCH (09:00)
[2017-11-20] MEDS: INSULIN GLARGINE SOLOSTAR 100 UNITS/ML 3 ML PEN SQ SCH (09:00)
[2017-11-20] MEDS: CeleBREX 100 MG CAP PO SCH (09:00)
[2017-11-20] MEDS ORDERED: MIRT45TA3 PO (11:31)
[2017-11-20] MEDS ORDERED: RXC5 PO (11:31)
[2017-11-20] MEDS ORDERED: CRFUDL PO (11:31)
[2017-11-20 12:21] VITALS: BP 113/71
--- NOTE | 2017-11-20 12:21 | Discharge Instructions ---
Discharge Instructions Date of Service Nov 20, 2017. Admission Reason for Admission: Low Back Pain Discharge Discharge Diagnosis / Problem: chronic low back pain Discharge Goals Goal(s): Diagnostic testing, Therapeutic intervention Activity Recommendations Activity Limitations: as noted below Lifting Limitations: gradually increase as tolerated . Instructions / Follow-Up Instructions / Follow-Up Please do not take over the counter medicine unless listed on the discharge Please do not use more than 4 doses of your oxycodone in 24 ours you will be provided with one week of oxycodone, 28 tablets at 4 tablets a day and will be able to picker / packer the next week of RX on the of that week. if you run out of meds prior to that day you will not be given Rx sooner It is expected that you will have established care with the pain clinic and at the end of 4 weeks (or sooner) they will be responsible for your pain management Current Hospital Diet Patient's current hospital diet: Diabetes Type 2 Diet Discharge Diet Recommended Diet: Diabetes Type 2 Diet Pending Studies Studies pending at discharge: no Laboratory Results Hemoglobin A1c Test 10/25/17 06:14 Range/Units Estimated Average Glucose 82 mg/dl Hemoglobin A1c 4.5 4.5-5.6 % Lipid Panel Test 10/22/17 12:19 Range/Units Triglycerides Level 79 0-150 mg/dl Cholesterol Level 123 0-200 mg/dl HDL Cholesterol 59 mg/dl Cholesterol/HDL Ratio 2.1 LDL Cholesterol, Calculated 48 mg/dl Medical Emergencies . Who to Call and When: Medical Emergencies: If at any time you feel your situation is an emergency, please call 911 immediately. . Non-Emergent Contact Non-Emergency issues call your: Primary Care Provider (Dr cuevas will be able to give you medical advice and non pain mediciation treatment until you establish care with new provider) Call Non-Emergent contact if: temperature is above 101, your pain is not controlled . . "Provider Documentation" section prepared by Erick Rice. .
--- NOTE | 2017-11-20 12:26 | Discharge Summary ---
Discharge Summary Date of Service Nov 20, 2017. Discharge Summary Admission Date: Nov 15, 2017 at 09:10 Discharge Date: Nov 20, 2017 Discharge Disposition: Home with services Principal Diagnosis: acute on chronic low back pain Immunizations: Have You Had Influenza Vaccine: Yes Influenza Vaccine Date: Feb 02, 2013 History of Tetanus Vaccine?: utd Tetanus Immunization Date: Jun 11, 2008 History of Pneumococcal: SEE LAST PACKET Pneumococcal Date: Nov 13, 2008 History of Hepatitis B Vaccine: Unknown Hepatitis Immunization Date: Jan 12, 1996 Medication Reconciliation New Medications: Mirtazapine (Mirtazapine) 45 Mg Tab 1 TAB PO HS for 30 Days, #30 TAB 1 Refill Oxycodone HCl (Oxycodone HCl) 5 Mg Tab 10 MG PO BID PRN for Pain, #28 TAB Sucralfate (Sucralfate) 1 Gm/10 Ml Susp 10 ML PO QID, #200 ML Continued Medications: Alendronate Sodium (Fosamax) 70 Mg Tab 70 MG PO WK, TAB EVERY FRIDAY Celecoxib (Celebrex) 100 Mg Cap 100 MG PO DAILY, CAP Insulin Glargine (Lantus Solostar) 100 Unit/Ml Inj 20 UNITS SQ AMPM, PEN Insulin Lispro (Human) (Humalog Kwikpen) 100 Unit/Ml Inj 7 UNITS SQ AC Lactulose (Chronulac) 10 Gm/15 Ml Syrp 15 ML PO BID AT LEAST 2 DOSES/DAY MAY TAKE MORE TO HAVE 2-3 BOWEL MOVEMENTS DAILY Levetiracetam (Levetiracetam) 1,000 Mg Tab 2000 MG PO BID Levodopa/Carbidopa (Carbidopa/Levodopa Sr 25-100 mg) 1 Tab Tabcr TIDM Levothyroxine Sodium (Levothyroxine Sodium) 75 Mcg Tab 75 MCG PO QAM Lidocaine (Lidocaine) 1 Patch Tdsy 1 PATCH TD QAM for 30 Days, #30 PATCH Apply to lower back at 9 am every morning, then remove at 9 pm every night. Do not leave on for more than 12 hours. Ondansetron (Ondansetron Odt) 8 Mg Soltab 8 MG PO Q6 PRN for Nausea or Vomiting Oxcarbazepine (Trileptal) 300 Mg Tab 300 MG PO BID Ranitidine Hcl (Zantac) 300 Mg Tab 300 MG PO HS, TAB Rifaximin (Xifaxan) 550 Mg Tab 550 MG PO BID Rizatriptan Benzoate (Maxalt) 10 Mg Tab 10 MG PO DIRECTED PRN for Migraine, TAB Sertraline Hcl (Zoloft) 50 Mg Tab 50 MG PO DAILY, TAB Spironolactone (Aldactone) 25 Mg Tab 25 MG PO DAILY, TAB Topiramate (Topamax) 100 Mg Tab 100 MG PO BID, TAB Discontinued Medications: Cholecalciferol (Vitamin D) 1,000 Unit Tab 5000 UNITS PO QAM Cranberry (Vaccinium Macrocarp (Cranberry Extract) 200 Mg Cap 200 MG PO BID Diphenhydramine Hcl (Benadryl Allergy) 25 Mg Tab 50 MG PO Q6H for Itching Magnesium Oxide (Mg Supplement (Magnesium) 500 Mg Tab 500 MG PO BID Melatonin (Melatonin Maximum Strengt) 5 Mg Tab 15 MG PO HS, #30 TAB 1 Refill Multivitamin (Multivitamin) Tab 1 TAB PO QAM Probiotic Product (Probiotic) 1 Cap Cap 1 CAP PO QAM Vitamin A (Vitamin A) 8,000 Unit Cap 8000 UNITS PO DAILY Zinc Gluconate (Zinc) 50 Mg Tab 50 MG PO BID Discharge Exam Review of Systems: Constitutional: + fever, + chills Respiratory: No cough, No sputum Neurologic: No memory loss, No weakness Psychiatric: + depression symptoms, + anxiety Physical Exam: General Appearance: WD/WN, no apparent distress Eyes: normal inspection, sclerae normal Neck: supple, no JVD Neurologic/Psychiatric: alert, oriented x 3 Hospital Course 51 y/o female with a history of chronic lumbar compression fracture, hepatic encephalopathy, cirrhosis, DM II, hypothyroidism, bipolar disorder, depression, seizure disorder, migraines, asthma, and GERD who presented to the ED on 11/15 with low back pain. Lumbar spine MRI done 10/24 shows an old mild compression deformity at L1, moderate multilevel narrowing of spinal canal from L3-L5 with moderate compromise of the neuroforamina bilaterally, and findings consistent w/ prior operative changes. Acute on chronic back pain, old compression deformity--ongoing, Dr Kyle feels this is not surgical will have a EMG to define if nerve root compression -Toradol 30 mg IV q6h prn pain. Lidoderm patch cannot perform In pt EMG, will use low dose oxycodone and try to control symptoms, her clinical complaints do not fit dermatomal distribution /Celebrex 100 mg PO qd, will increase to 100 mg PO BID but now states she allergic to it continue to avoid Decadron as last admission this made her sugars very difficult to control and did not provide relief -Lumbar spine x-ray negative for acute fracture or subluxation. No significant changes from previous studies. ortho spine surgery does not feel she warrants surgical intervention Cirrhosis lactulose and Xifaxan, clinically is stable,diarrhea is significant, c diff negative Peripheral edema-Spironolactone 50 mg PO qam and 25 mg PO qd@noon tomorrow DM II--last hgbA1c 4.5 10/25/17 Lantus 20 units SC BID Hypothyroidism--stable,Continue levothyroxine Bipolar disorder, depression sertraline Seizure disorder and h/o migraines levetiracetam, Trileptal, Topamax Asthma--stable, no exacerbation GERD Ranitidine Code Status-Level I, FULL RESUSCITATION STATUS Summary for past medical history ms Munson is a 51-year-old female has had multiple readmissions our facility. She is got a complex past history of the seizure disorder and subsequent cirrhotic liver disease this is complicated by chronic low back pain which is refractory to surgical intervention. She also suffers from depression with psychotic features and migraine headaches the combination of these medical problems provide exposure to medications which if used off label and in combination could create mental status changes and subsequently she has had frequent admissions for lethargy, hepatic encephalopathy (due to decrease use of lactulose and)and opiate overuse. This is colored by the fact that she has had multiple falls both as an inpatient and outpatient at times attributed to her seizure disorder the falls and her inpatient setting have resulted in significant orthopedic fractures requiring intervention subsequently she has true physiological need for pain control but concern as she does have some unsupervised time at home given her 's work schedule to self medicate Regarding her seizures she has been followed for many years by Dr. Jorden Gonzalez and has had many medical trials of antiepileptics to help control her seizures most without great success.Past therapeutic trials: Including VNS which is vagal nerve stimulator Patient has been on VNS back when she had an evaluation at [facility]. By 2014 Hz VNS was turned off presumably because she did not feel like it was helping. Patient has been on Topamax with past concerns of possibly contributing to her liver dysfunction (although not really known to do this) Dilantin Gabapentin Tegretol Lamictal with uncertain results Depakote was reported to work in the past, but caused issues with increased LFTs Zonegran appears to have been briefly tried. Patient reports about all the medication she is tried she feels like Keppra and Trileptal has helped the past. His most recent hospital stay patient came in from back pain. It did not follow a typical dermatomal or radicular clinical scenario. She was evaluated by orthopedic spine surgeon, Dr. Barreto. In the previous admission she was evaluated by our other orthopedic spine surgeon Dr. Sheikh. Both surgeons were in agreement that after reviewing her imaging studies she did not have pain correlating with any significant mechanical impingement that would require surgical intervention and recommended medical management At the time of discharge is n.p.o. be discharged on a 1 week supply of oxycodone a maximum of 20 mg a day until she establishes firm care with a pain management clinic. Simply has been dismissed from every medical office and [place] with the exception of Dr. Farooq Stepehnson due to disagreements and direction of care between her providers. She resists going to Dr. David Stephenson's clinic due to his policy of only taking barrow and not taking insurance. Her is on medical leave of absence to care for her she herself is on disability Total Time Spent: Greater than 30 minutes This includes examination of the patient, discharge planning, medication reconciliation, and communication with other providers. Discharge Instructions Please refer to the electronic Patient Visit Report (Discharge Instructions) for additional information.
[2017-11-20] MEDS: ENOXAPARIN 40 MG/0.4 ML SYR SQ SCH (13:15)
[2017-11-20 14:08] VITALS: BP 113/71; PULSE 78; TEMP 36.9; O2SAT 94
[2017-11-21] MEDS ORDERED: MAGNESIUM OXIDE 400 MG TAB PO SCH (09:00)
== END 2017-11-20 14:43 | disposition home health service (06) ==
LOC: C.EDB 04:13 → C.MSN 09:10 → ENRESERV 09:47
PROVIDERS: ADMIT Hospitalist; ATTEND Internal Medicine
DX: M54.5 Low back pain (principal); K72.90 Hepatic failure, unspecified without coma; E11.9 Type 2 diabetes mellitus without complications; E03.9 Hypothyroidism, unspecified; F31.9 Bipolar disorder, unspecified; G40.909 Epilepsy, unspecified, not intractable, without status epilepticus; J45.909 Unspecified asthma, uncomplicated; K21.9 Gastro-esophageal reflux disease without esophagitis; Z79.4 Long term (current) use of insulin; Z90.49 Acquired absence of other specified parts of digestive tract; Z88.0 Allergy status to penicillin; Z87.440 Personal history of urinary (tract) infections

== ENCOUNTER 2018-12-22 14:04 | Inpatient (IN) ==
[2018-12-22 15:51] LABS: Appearance Urine Cloudy (Clear); Bacteria Urine Automated Negative (Negative); Bilirubin Urine Negative (Negative); Blood Urine Negative (Negative); Color Urine Yellow; Epithelial Cell Urine Auto >30 /lpf (0-5); Glucose Urine UA Negative (Negative); Ketones Urine Negative (Negative); Leukocyte Esterase Urine Negative (Negative); Nitrite Urine Negative (Negative); Protein Urine Negative (Negative); RBC Urine Automated 0-4 /hpf (0-4); Specific Gravity Urine 1.017 (1.000-1.030); Urobilinogen Urine Negative (Negative); pH Urine 7.5 (4.5-7.5)
[2018-12-22 16:00] LABS: Renal Epithelial Cells Urine 0-5 /lpf (0-5)
--- NOTE | 2018-12-22 16:02 | Emergency Department Note ---
ED Visit Note This patient was seen in concert with Dr. Barone and we discussed and agreed upon the history, physical, assessment and plan. See attending's note for details. . Resident Activity Tracking Resident Involvement: Resident Care Provided Care Provided: Adult ED
[2018-12-22 16:34] LABS: Hematocrit (blood only) 28.6 % (37-47); Hemoglobin 10.7 g/dL (12.0-16.0); Mean Corpuscular Hemoglobin 37.9 pg (25-34); Mean Corpuscular Hgb Conc 37.4 g/dL (32-36); Mean Corpuscular Volume 101.4 fL (80-100); RDW Coefficient of Variation 13.7 % (11.5-14.5); RDW Standard Deviation 50.5 fL (36.4-46.3); Red Blood Count 2.82 M/uL (4.2-5.4); White Blood Count 3.12 K/uL (4.8-10.8)
[2018-12-22 16:51] LABS: Alanine Aminotransferase 62 U/L (12-78); Albumin Level 3.2 gm/dl (3.4-5.0); Aspartate Aminotransferase 45 U/L (15-37); BUN Creatinine Ratio 23.6 (10-20); Blood Urea Nitrogen 12 mg/dl (7-18); Calcium 8.1 mg/dl (8.5-10.1); Carbon Dioxide 21 mmol/L (21-32); Chloride 108 mmol/L (98-107); Est GFR (African American) 125.6; Est GFR (Non-African American) 108.4; Glucose 115 mg/dl (70-99); Potassium 3.8 mmol/L (3.5-5.1); Sodium 136 mmol/L (136-145)
[2018-12-22 16:54] LABS: Albumin Globulin Ratio 1.1 (0.9-2); Alkaline Phosphatase 113 U/L (45-117); Bilirubin,Total 1.7 mg/dl (0.2-1); Globulin 2.8 gm/dl (2.5-4.0)
[2018-12-22 17:19] LABS: Mean Platelet Volume 9.4 fL (7.4-10.4); Platelet Count 89 K/uL (130-400)
[2018-12-22 17:21] LABS: Basophils # (auto) 0.02 K/uL (0-0.2); Basophils % (auto) 0.6 %; Eosinophils # (auto) 0.17 K/uL (0-0.5); Eosinophils % (auto) 5.4 %; Lymphocytes % (auto) 35.3 %; Monocytes # (auto) 0.31 K/uL (0.11-0.59); Monocytes % (auto) 9.9 %; Neutrophils # (auto) 1.52 K/uL (1.4-6.5); Neutrophils % (auto) 48.8 %
[2018-12-22] MEDS ORDERED: LACTULOSE SYRUP 20 GM/30 ML UDC PO ONE (18:01)
[2018-12-22] MEDS ORDERED: FLUCONAZOLE 50 MG TAB PO ONE (18:01)
--- NOTE | 2018-12-22 18:12 | History & Physical Report ---
Date of Service December 22, 2018 Assessment & Plan (1) Confusion: Likely related to elevated ammonia in the setting of chronic liver disease Decreased lactulose today, pt with hx of noncompliance due to frequency of bowel movements States today was only day of lowered medication, is not present to verify this and pt does have hx of withholding information about medication compliance Give additional 20ml that was missed from AM and monitor levels Baseline ammonia is chronically elevated TSH pending UA neg CXR pending CBC, PRP WNL is not present. Did not discuss code status with pt given mentation issues (2) Yeast infection: diflucan x1 (3) Chronic liver disease and cirrhosis: continue home meds (4) Controlled type 2 diabetes mellitus, with long-term current use of insulin: Holding PO and SSI SSI PRN A1c pending (5) Gastroparesis: continue home meds (6) Major depressive disorder with psychotic features: continue home meds Multiple medications could be contributing to confusion, however pt's psych hx is very labile Will continue as usual with these, but t/c changing if no improvement Recent psych note indicates no recent medication changes other than d/c lexapro prior to the 11/26 visit Pt indicated feeling improved off medication at that time (7) GERD (gastroesophageal reflux disease): continue home meds (8) Hypothyroidism: continue home meds TSH pending (9) Seizure disorder: continue home meds Could also be contributing to confusion Denies recent seizures (10) DVT prophylaxis: SCDs History of Present Illness Primary Care Provider: Balaji Zaragoza DO 53 y/o F who was brought to the ED by her for worsening confusion and lethargy. is not present during my discussion with pt. Per ED resident, pt's states that pt has required more assistance with ambulation or getting off of the toilet. She is not assisting in this at all. She has been more confused as well. She has had decreased PO intake. She is apparently in the process of a swallow evaluation and had an aspiration study done. Per pt, she does feel more confused. She tells me that this AM she took 20ml of lactulose instead of her usual 40ml due to frequency of bowel movements. She denies having decreased her dose prior to today. She states she has been having increased UOP. She is having burning that is associated with UOP but also just general burning. No itching. She has had yeast infections in the past and states this feels similar. Pt denies fever, SOB, chest pain, abd pain, n/v, LE pain or swelling. Allergies Allergy/AdvReac Type Severity Reaction Status Date / Time amoxicillin Allergy Intermediate HIVES; Has Verified 12/21/18 14:11 tolerated cephalosporins (Rocephin, Ceftin,Keflex baclofen Allergy Intermediate RASH Verified 12/21/18 14:11 butalbital Allergy Intermediate HIVES Verified 12/21/18 14:11 ceftriaxone [From Rocephin] Allergy Intermediate Hives Verified 12/21/18 14:11 clarithromycin Allergy Intermediate RASH Verified 12/21/18 14:11 dicyclomine Allergy Intermediate HIVES Verified 12/21/18 14:11 mivacurium Allergy Intermediate HIVES Verified 12/21/18 14:11 Penicillins Allergy Intermediate RASH; has Verified 12/21/18 14:11 tolerated cephs (Rocephin, Keflex, Ceftin) Tetracyclines Allergy Intermediate DOXYCYCLINE Verified 12/21/18 14:11 -HIVES grape Allergy Mild Nausea Verified 12/21/18 14:11 sulindac Allergy Mild ALLERGY Verified 12/21/18 14:11 LISTED "CLONDORAL"--HIVES adhesive Allergy Unknown RASH, Verified 12/21/18 14:11 DUODERM=RED,ITCHY clavulanic acid Allergy Unknown diahrea Verified 12/21/18 14:11 metronidazole Allergy Unknown SEIZURE Verified 12/21/18 14:11 tramadol Allergy Unknown SEIZURES Verified 12/21/18 14:11 cat dander Allergy Verified 12/21/18 14:12 dog dander Allergy Verified 12/21/18 14:12 horse dander Allergy Verified 12/21/18 14:12 pollen extracts Allergy Verified 12/21/18 14:12 Cephalosporins AdvReac Severe TURNS Verified 12/21/18 14:11 STOOL VERY DARK furosemide AdvReac Severe HIVES Verified 12/21/18 14:11 metoclopramide AdvReac Severe SEIZURES Verified 12/21/18 14:11 cefdinir AdvReac Intermediate Diarrhea Verified 12/21/18 14:11 blueberry AdvReac Mild STOMACH Verified 12/21/18 14:11 PAIN celecoxib AdvReac Mild HIVES Verified 12/21/18 14:11 Home Medications Home Medications Medication Instructions Recorded Confirmed Type levothyroxine 75 mcg PO QAM 12/26/17 12/22/18 History multivitamin [Multiple Vitamins] 1 tab PO QDL 12/26/17 12/22/18 History spironolactone 50 mg PO QAM 12/26/17 12/22/18 History lactulose 40 ml PO QAM 01/18/18 12/22/18 History rifaximin 550 mg PO BID 01/18/18 12/22/18 History omeprazole 40 mg PO QAM 03/13/18 12/22/18 History ranitidine HCl 300 mg PO HS 03/13/18 12/22/18 History insulin degludec [Tresiba 1 dose SUBCUT BID 07/29/18 12/22/18 History FlexTouch U-100] ibuprofen 200 - 400 mg PO DAILY PRN 08/07/18 12/22/18 History oxcarbazepine [Trileptal] 600 mg PO BID 08/12/18 12/22/18 History levetiracetam 1,500 mg PO BID 09/12/18 12/22/18 History cholecalciferol (vitamin D3) 1,000 unit PO QDL 09/20/18 12/22/18 History [Vitamin D3] lactobacillus combination no.4 0 mmu cells PO QDL 09/20/18 12/22/18 History [Probiotic] vitamin A 8,000 unit PO QDL 09/20/18 12/22/18 History vitamin B complex 1 tab PO QDL 09/20/18 12/22/18 History eucalyptus oil-menthol [Menthol 0 mg PO UD PRN 10/03/18 12/22/18 History Drops] albuterol sulfate 2 puffs INH 6XD PRN #8 gm 10/21/18 12/22/18 Rx polyethylene glycol 3350 [Miralax] 17 g PO QAM 10/27/18 12/22/18 History promethazine 25 mg PO Q6H PRN #12 tab 10/27/18 12/22/18 Rx Novolog Flexpen U-100 Insulin See Rx Instructions SQ .COMPLEX #1 11/17/18 12/22/18 Rx aspart 100 unit/mL (3 mL) box NS subcutaneous lecithin 1,200 mg capsule 1,200 mg PO DAILY 11/17/18 12/22/18 History ondansetron HCl 4 mg tablet 4 - 8 mg PO UD PRN tab 11/26/18 12/22/18 History topiramate 100 mg tablet 100 mg PO BID #60 tab 12/04/18 12/22/18 Rx carboxymethylcellulose sodium 1 drp OPHTHALMIC (EYE) BID PRN 12/22/18 12/22/18 History [Refresh Tears] ibuprofen-diphenhydramine cit 1 cap PO HS PRN 12/22/18 12/22/18 History [Ibuprofen PM] Past Med/Surg History Medical History GERD (gastroesophageal reflux disease) CONTROLLED 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, type 2 IDDM Hypothyroidism Asthma STABLE Seizure disorder (05/26/11) + PSEUDOSEIZURES; NO SEIZURES X MONTHS Cirrhosis NON-ALCOHOLIC FATTY LIVER DISEASE Hyperammonemia (Inactive) Abnormal finding on mammography Bipolar disorder Depression Hepatic encephalopathy HX; ON LACTULOSE/XIFAXAN Hx of migraines Pancytopenia CHRONIC Surgical History History of cholecystectomy History of hysterectomy History of tonsillectomy History of kyphoplasty History of appendectomy History of ankle surgery B/L Hx of carpal tunnel repair B/L Hx of cataract extraction B/L S/P laminectomy lumbar spine S/P nasal surgery nasal bone fracture repair Family History Other No pertinent family history Social History Preferred Language: [place]i Communication Ability: Effective Visual Impairment: No Limitations Computer Systems Technician Required: No Beliefs That Will Affect Care: None marital status: Current Living Situation: Spouse Current Living Situation Comment: Lives with in apartment current occupational status: unemployed and disabled Feels Safe at Home: Hesitant to Answer Smoking Status: Never smoker Second Hand Exposure: No ; Hx Alcohol Use: No Hx Substance Use: No Seatbelt Use: always Review of Systems Review of Systems: Pertinent positives and negatives reviewed in HPI--all others negative Physical Exam Constitutional: WD/WN, vitals as above Eyes: normal visual dyer by confrontation and + anicteric sclerae Neck: normal visual inspection and trachea midline Respiratory: normal respiratory effort, lungs clear to auscultation Cardiovascular: Rate/Rhythm: regular rate and regular rhythm Gastrointestinal (Abdomen): Inspection/Auscultation: abdomen not distended Percussion/Palpation: abdomen soft; abdomen nontender Musculoskeletal: Head/Neck/Chest: normocephalic and head atraumatic negative for edema, peripheral pulses intact Skin: no rashes, warm and dry Neurologic: awake Speech / Cognition: + abnormal speech (slow and slightly slurred) Answers questions appropriately Psychiatric: Orientation: alert Eye Contact: good eye contact Affect: + blunted affect Results & Data Vital Signs (Past 12 Hours) Vital Signs Temp Pulse Resp BP Pulse Ox 12/22/18 16:30 85 16 99 12/22/18 16:00 82 23 100 12/22/18 15:30 79 22 98 12/22/18 15:00 83 16 98 12/22/18 14:30 89 19 98 12/22/18 14:23 88 20 96 12/22/18 14:21 84 97 12/22/18 14:11 37.1 C 87 20 147/73 H 100 12/22/18 13:48 85 20 138/84 97 Code Status & VTE Plan Code Status is not present. Did not discuss code status with pt given potential mentation issues VTE Prophylaxis Plan VTE Prophylaxis will be ordered: Yes PG Care Time/CCT Total # of Minutes Spent Total Time Spent with Patient: Total time spent is greater than 50% in coordination of care (as documented) at patient's floor/unit and/or counseling patient: (1) GERD (gastroesophageal reflux disease) Esophagitis presence: esophagitis presence not specified Qualified Code(s): K21.9 - Gastro-esophageal reflux disease without esophagitis (2) Hypothyroidism Hypothyroidism type: unspecified Qualified Code(s): E03.9 - Hypothyroidism, unspecified
--- NOTE | 2018-12-22 18:24 | XRay Report ---
XR chest 1V portable HISTORY: 53 years-old Female eval for pna acute shortness of breath with possible pneumonia COMPARISON: Chest radiograph 11/14/2018 TECHNIQUE: Portable AP view of the chest FINDINGS: Cardiac silhouette is enlarged, unchanged. Stable positioning of right IJ [id number] catheter. No pneumothorax, pleural effusion, focal airspace consolidation or overt pulmonary edema. Lateral plate and screw fusion hardware about the proximal left humerus. Degenerative changes of the shoulders and spine. IMPRESSION: Cardiomegaly without acute process. The above report was generated using voice recognition software. It may contain grammatical, syntax o r spelling errors. Electronically signed by: Deion Segura M.D. 12/22/2018 6:23 PM
--- NOTE | 2018-12-22 21:00 | Emergency Department Note ---
Entered by Anay Reyes acting as a scribe for Erick Barone MD History of Present Illness General Chief complaint: Confusion Stated complaint: CONFUSION, POOR BODY CONTROL/BALANCE, UTI Source: patient Mode of arrival: wheelchair Limitations: no limitations History of Present Illness Onset (ago): day(s) 3 Location: head Radiation: non-radiation Pain Consistency: + constant Relieved By: + none Exacerbated By: + none Associated symptoms: + weakness and + other (+increased urinary frequency, +diffuse itching) Treatments prior to arrival: none The patient is a 53 year old female who presents to the ED with complaints of confusion for the past few days. She is accompanied by her . The states she has been confused and off balance recently, and he has had to hold her up to support her. He also reports the patient has been coughing after eating recently. The patient did have an aspiration study done recently and also produced a normal fiberoptic laryngoscopy by ENT. She is scheduled to have an EGD later this month. The patient also complains of dysuria and increased urinary frequency. She also complains of diffuse itchiness. The notes he is her sole caregiver and is not able to work anymore because she requires so much attention. The patient states she has been having normal bowel movements and has been taking her lactulose. She also reports she has not been eating or drinking as much as normal because of her swallowing issues, however she is not vomiting. Home Medications Home Medications Medication Instructions Recorded Confirmed Type levothyroxine 75 mcg PO QAM 12/26/17 12/22/18 History multivitamin [Multiple Vitamins] 1 tab PO QDL 12/26/17 12/22/18 History spironolactone 50 mg PO QAM 12/26/17 12/22/18 History lactulose 40 ml PO QAM 01/18/18 12/22/18 History rifaximin 550 mg PO BID 01/18/18 12/22/18 History omeprazole 40 mg PO QAM 03/13/18 12/22/18 History ranitidine HCl 300 mg PO HS 03/13/18 12/22/18 History insulin degludec [Tresiba 1 dose SUBCUT BID 07/29/18 12/22/18 History FlexTouch U-100] ibuprofen 200 - 400 mg PO DAILY PRN 08/07/18 12/22/18 History oxcarbazepine [Trileptal] 600 mg PO BID 08/12/18 12/22/18 History levetiracetam 1,500 mg PO BID 09/12/18 12/22/18 History cholecalciferol (vitamin D3) 1,000 unit PO QDL 09/20/18 12/22/18 History [Vitamin D3] lactobacillus combination no.4 0 mmu cells PO QDL 09/20/18 12/22/18 History [Probiotic] vitamin A 8,000 unit PO QDL 09/20/18 12/22/18 History vitamin B complex 1 tab PO QDL 09/20/18 12/22/18 History eucalyptus oil-menthol [Menthol 0 mg PO UD PRN 10/03/18 12/22/18 History Drops] albuterol sulfate 2 puffs INH 6XD PRN #8 gm 10/21/18 12/22/18 Rx polyethylene glycol 3350 [Miralax] 17 g PO QAM 10/27/18 12/22/18 History promethazine 25 mg PO Q6H PRN #12 tab 10/27/18 12/22/18 Rx Novolog Flexpen U-100 Insulin See Rx Instructions SQ .COMPLEX #1 11/17/18 12/22/18 Rx aspart 100 unit/mL (3 mL) box NS subcutaneous lecithin 1,200 mg capsule 1,200 mg PO DAILY 11/17/18 12/22/18 History ondansetron HCl 4 mg tablet 4 - 8 mg PO UD PRN tab 11/26/18 12/22/18 History topiramate 100 mg tablet 100 mg PO BID #60 tab 12/04/18 12/22/18 Rx carboxymethylcellulose sodium 1 drp OPHTHALMIC (EYE) BID PRN 12/22/18 12/22/18 History [Refresh Tears] ibuprofen-diphenhydramine cit 1 cap PO HS PRN 12/22/18 12/22/18 History [Ibuprofen PM] Allergies Allergy/AdvReac Type Severity Reaction Status Date / Time amoxicillin Allergy Intermediate HIVES; Has Verified 12/21/18 14:11 tolerated cephalosporins (Rocephin, Ceftin,Keflex baclofen Allergy Intermediate RASH Verified 12/21/18 14:11 butalbital Allergy Intermediate HIVES Verified 12/21/18 14:11 ceftriaxone [From Rocephin] Allergy Intermediate Hives Verified 12/21/18 14:11 clarithromycin Allergy Intermediate RASH Verified 12/21/18 14:11 dicyclomine Allergy Intermediate HIVES Verified 12/21/18 14:11 mivacurium Allergy Intermediate HIVES Verified 12/21/18 14:11 Penicillins Allergy Intermediate RASH; has Verified 12/21/18 14:11 tolerated cephs (Rocephin, Keflex, Ceftin) Tetracyclines Allergy Intermediate DOXYCYCLINE Verified 12/21/18 14:11 -HIVES grape Allergy Mild Nausea Verified 12/21/18 14:11 sulindac Allergy Mild ALLERGY Verified 12/21/18 14:11 LISTED "CLONDORAL"--HIVES adhesive Allergy Unknown RASH, Verified 12/21/18 14:11 DUODERM=RED,ITCHY clavulanic acid Allergy Unknown diahrea Verified 12/21/18 14:11 metronidazole Allergy Unknown SEIZURE Verified 12/21/18 14:11 tramadol Allergy Unknown SEIZURES Verified 12/21/18 14:11 cat dander Allergy Verified 12/21/18 14:12 dog dander Allergy Verified 12/21/18 14:12 horse dander Allergy Verified 12/21/18 14:12 pollen extracts Allergy Verified 12/21/18 14:12 Cephalosporins AdvReac Severe TURNS Verified 12/21/18 14:11 STOOL VERY DARK furosemide AdvReac Severe HIVES Verified 12/21/18 14:11 metoclopramide AdvReac Severe SEIZURES Verified 12/21/18 14:11 cefdinir AdvReac Intermediate Diarrhea Verified 12/21/18 14:11 blueberry AdvReac Mild STOMACH Verified 12/21/18 14:11 PAIN celecoxib AdvReac Mild HIVES Verified 12/21/18 14:11 Past Med/Surg History Medical History GERD (gastroesophageal reflux disease) CONTROLLED 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, type 2 IDDM Hypothyroidism Asthma STABLE Seizure disorder (05/26/11) + PSEUDOSEIZURES; NO SEIZURES X MONTHS Cirrhosis NON-ALCOHOLIC FATTY LIVER DISEASE Hyperammonemia (Inactive) Abnormal finding on mammography Bipolar disorder Depression Hepatic encephalopathy HX; ON LACTULOSE/XIFAXAN Hx of migraines Pancytopenia CHRONIC Surgical History History of cholecystectomy History of hysterectomy History of tonsillectomy History of kyphoplasty History of appendectomy History of ankle surgery B/L Hx of carpal tunnel repair B/L Hx of cataract extraction B/L S/P laminectomy lumbar spine S/P nasal surgery nasal bone fracture repair Family History Other No pertinent family history Social History Preferred Language: Occitan Communication Ability: Effective Visual Impairment: No Limitations Supervisor Inspection Room Required: No Beliefs That Will Affect Care: None marital status: Current Living Situation: Spouse Current Living Situation Comment: Lives with in apartment current occupational status: unemployed and disabled Feels Safe at Home: Hesitant to Answer Smoking Status: Never smoker Second Hand Exposure: No ; Hx Alcohol Use: No Hx Substance Use: No Seatbelt Use: always Review of Systems See HPI for pertinent positives & negatives. and A total of 10 systems reviewed and were otherwise negative Physical Exam Vital Signs Vital Signs - 24 hr 12/22/18 13:48 12/22/18 14:11 12/22/18 14:21 Temperature 37.1 C Temperature Source Oral Sepsis Recent Fever Within 48 Hours No Sepsis New/Unexplained Change in Mental Status Yes Sepsis Action Taken by Nursing No Action Required Pulse Rate 85 87 84 Pulse Rate from SpO2 Sensor 85 Respiratory Rate 20 20 Respiratory Effort / Characteristics Non-Labored Spontaneous Respiratory Depth Normal Blood Pressure 138/84 147/73 H Blood Pressure Mean 102 97 Pulse Oximetry 97 100 97 Oxygen Delivery Method Room Air Room Air 12/22/18 14:23 12/22/18 14:30 12/22/18 15:00 Temperature Temperature Source Sepsis Recent Fever Within 48 Hours Sepsis New/Unexplained Change in Mental Status Sepsis Action Taken by Nursing Pulse Rate 88 89 83 Pulse Rate from SpO2 Sensor 88 89 83 Respiratory Rate 20 19 16 Respiratory Effort / Characteristics Respiratory Depth Blood Pressure Blood Pressure Mean Pulse Oximetry 96 98 98 Oxygen Delivery Method 12/22/18 15:30 12/22/18 16:00 12/22/18 16:30 Temperature Temperature Source Sepsis Recent Fever Within 48 Hours Sepsis New/Unexplained Change in Mental Status Sepsis Action Taken by Nursing Pulse Rate 79 82 85 Pulse Rate from SpO2 Sensor 80 82 84 Respiratory Rate 22 23 16 Respiratory Effort / Characteristics Respiratory Depth Blood Pressure Blood Pressure Mean Pulse Oximetry 98 100 99 Oxygen Delivery Method 12/22/18 16:54 12/22/18 17:00 12/22/18 17:30 Temperature Temperature Source Sepsis Recent Fever Within 48 Hours Sepsis New/Unexplained Change in Mental Status Sepsis Action Taken by Nursing Pulse Rate 80 76 84 Pulse Rate from SpO2 Sensor 79 76 Respiratory Rate 22 16 22 Respiratory Effort / Characteristics Respiratory Depth Blood Pressure 137/64 138/75 Blood Pressure Mean 88 96 Pulse Oximetry 100 99 Oxygen Delivery Method 12/22/18 17:31 12/22/18 18:00 12/22/18 18:30 Temperature Temperature Source Sepsis Recent Fever Within 48 Hours Sepsis New/Unexplained Change in Mental Status Sepsis Action Taken by Nursing Pulse Rate 79 Pulse Rate from SpO2 Sensor Respiratory Rate 14 Respiratory Effort / Characteristics Respiratory Depth Blood Pressure 124/60 118/79 130/59 L Blood Pressure Mean 81 92 82 Pulse Oximetry Oxygen Delivery Method 12/22/18 18:53 12/22/18 19:00 12/22/18 19:02 Temperature Temperature Source Sepsis Recent Fever Within 48 Hours Sepsis New/Unexplained Change in Mental Status Sepsis Action Taken by Nursing Pulse Rate 88 78 75 Pulse Rate from SpO2 Sensor 77 Respiratory Rate 18 19 Respiratory Effort / Characteristics Respiratory Depth Blood Pressure 140/30 L Blood Pressure Mean 66 Pulse Oximetry Oxygen Delivery Method 12/22/18 19:03 12/22/18 19:30 Temperature Temperature Source Sepsis Recent Fever Within 48 Hours Sepsis New/Unexplained Change in Mental Status Sepsis Action Taken by Nursing Pulse Rate 75 71 Pulse Rate from SpO2 Sensor 71 Respiratory Rate 20 19 Respiratory Effort / Characteristics Respiratory Depth Blood Pressure 150/77 H Blood Pressure Mean 101 Pulse Oximetry 100 Oxygen Delivery Method Constitutional: Vital signs reviewed. Eyes: Pupils are equal round reactive to light. Conjunctiva are noninjected. ENT: Pharynx is clear without erythema or exudate. Mucous membranes are moist. Neck supple without meningeal signs. Respiratory: Clear to auscultation bilaterally. Breath sounds are equal bilaterally. Cardiovascular: Regular rate and rhythm. No rubs or gallops. GI: Soft, nondistended and nontender. Bowel sounds are present. Musculoskeletal: No peripheral edema. No lower extremity tenderness. Integumentary: No cyanosis. Neurological: The patient is awake and alert. She answers questions but is slow to respond. No asterixis noted. Psychiatric: Normal affect. Course 1650: The patient was evaluated in room C10 and a complete history and physical were performed. 1719: The case was discussed with Dr. Bergeron, [facility] Hospitalist. The patient will be further evaluated. 1732: I reevaluated the patient. I discussed my recommendation she remain in the hospital for further evaluation and management and she is agreeable with the plan. Consultations Consultation #1: The case was discussed with Dr. Bergeron, [facility] Hospitalist. The patient will be further evaluated. Time: 17:19 Administered Medications Discontinued Medications Fluconazole (Diflucan) 150 mg PO NOW ONE Stop: 12/22/18 18:02 Last Admin: 12/22/18 18:49 Dose: 150 mg Documented by: [id number] Lactulose (Chronulac) 20 gm PO NOW ONE Stop: 12/22/18 18:02 Last Admin: 12/22/18 18:49 Dose: 20 gm Documented by: [id number] Medical Decision Making Differential Diagnosis The differential diagnoses considered include encephalopathy, medication noncomp liance, dehydration, malnutrition, metabolic derangement and UTI. Medical Records Attestation: I reviewed the patient's medical records. I did perform a limited focused review of portions of the patient's old chart on the electronic medical record. The patient has had no recent pertinent visits to this hospital. Home Medications Current Medication List: was personally reviewed by me Laboratory Data Attestation: I reviewed the patient's lab results. Result diagrams: 12/22/18 16:20 12/22/18 16:20 Lab Results 12/22/18 12/22/18 12/22/18 Range/Units 15:38 16:20 16:20 WBC (4.8-10.8) K/uL RBC (4.2-5.4) M/uL Hgb (12.0-16.0) g/dL Hct (37-47) % MCV (80-100) fL MCH (25-34) pg MCHC (32-36) g/dL RDW Std Deviation (36.4-46.3) fL RDW Coeff of Irina (11.5-14.5) % Plt Count (130-400) K/uL MPV (7.4-10.4) fL Immature Gran % (Auto) % Neut % (Auto) % Lymph % (Auto) % Wells % (Auto) % Eos % (Auto) % Baso % (Auto) % Immature Gran # (Auto) (0.00-0.02) K/uL Neut # (Auto) (1.4-6.5) K/uL Lymph # (Auto) (1.2-3.4) K/uL Wells # (Auto) (0.11-0.59) K/uL Eos # (Auto) (0-0.5) K/uL Baso # (Auto) (0-0.2) K/uL Sodium 136 (136-145) mmol/L Potassium 3.8 (3.5-5.1) mmol/L Chloride 108 H (98-107) mmol/L Carbon Dioxide 21 (21-32) mmol/L Anion Gap 7.0 (3-11) BUN 12 (7-18) mg/dl Creatinine 0.53 L (0.6-1.2) mg/dl Est Cr Clr Drug Dosing Not Reportable Est GFR ( Amer) 125.6 Est GFR (Non-Af Amer) 108.4 BUN/Creatinine Ratio 23.6 H (10-20) Glucose 115 H (70-99) mg/dl Calcium 8.1 L (8.5-10.1) mg/dl Total Bilirubin 1.7 H (0.2-1) mg/dl AST 45 H (15-37) U/L ALT 62 (12-78) U/L Alkaline Phosphatase 113 (45-117) U/L Ammonia 142.0 H (11-32) umol/L Total Protein 6.0 L (6.4-8.2) gm/dl Albumin 3.2 L (3.4-5.0) gm/dl Globulin 2.8 (2.5-4.0) gm/dl Albumin/Globulin Ratio 1.1 (0.9-2) Urine Color Yellow Urine Appearance Cloudy A (Clear) Urine pH 7.5 (4.5-7.5) Ur Specific [place] 1.017 (1.000-1.030) Urine Protein Negative (Negative) Urine Glucose (UA) Negative (Negative) Urine Ketones Negative (Negative) Urine Blood Negative (Negative) Urine Nitrite Negative (Negative) Urine Bilirubin Negative (Negative) Urine Urobilinogen Negative (Negative) Ur Leukocyte Esterase Negative (Negative) Urine WBC (Auto) 1-5 (0-5) /hpf Urine RBC (Auto) 0-4 (0-4) /hpf U Hyaline Cast (Auto) 1-5 (0-5) /lpf U Epithel Cells (Auto) >30 H (0-5) /lpf Urine Bacteria (Auto) Negative (Negative) Ur Renal Epithelial Cell 0-5 (0-5) /lpf 12/22/18 Range/Units 16:20 WBC 3.12 L (4.8-10.8) K/uL RBC 2.82 L (4.2-5.4) M/uL Hgb 10.7 L (12.0-16.0) g/dL Hct 28.6 L (37-47) % MCV 101.4 H (80-100) fL MCH 37.9 H (25-34) pg MCHC 37.4 H (32-36) g/dL RDW Std Deviation 50.5 H (36.4-46.3) fL RDW Coeff of Irina 13.7 (11.5-14.5) % Plt Count 89 L (130-400) K/uL MPV 9.4 (7.4-10.4) fL Immature Gran % (Auto) 0.0 % Neut % (Auto) 48.8 % Lymph % (Auto) 35.3 % Wells % (Auto) 9.9 % Eos % (Auto) 5.4 % Baso % (Auto) 0.6 % Immature Gran # (Auto) 0.00 (0.00-0.02) K/uL Neut # (Auto) 1.52 (1.4-6.5) K/uL Lymph # (Auto) 1.10 L (1.2-3.4) K/uL Wells # (Auto) 0.31 (0.11-0.59) K/uL Eos # (Auto) 0.17 (0-0.5) K/uL Baso # (Auto) 0.02 (0-0.2) K/uL Sodium (136-145) mmol/L Potassium (3.5-5.1) mmol/L Chloride (98-107) mmol/L Carbon Dioxide (21-32) mmol/L Anion Gap (3-11) BUN (7-18) mg/dl Creatinine (0.6-1.2) mg/dl Est Cr Clr Drug Dosing Est GFR ( Amer) Est GFR (Non-Af Amer) BUN/Creatinine Ratio (10-20) Glucose (70-99) mg/dl Calcium (8.5-10.1) mg/dl Total Bilirubin (0.2-1) mg/dl AST (15-37) U/L ALT (12-78) U/L Alkaline Phosphatase (45-117) U/L Ammonia (11-32) umol/L Total Protein (6.4-8.2) gm/dl Albumin (3.4-5.0) gm/dl Globulin (2.5-4.0) gm/dl Albumin/Globulin Ratio (0.9-2) Urine Color Urine Appearance (Clear) Urine pH (4.5-7.5) Ur Specific [place] (1.000-1.030) Urine Protein (Negative) Urine Glucose (UA) (Negative) Urine Ketones (Negative) Urine Blood (Negative) Urine Nitrite (Negative) Urine Bilirubin (Negative) Urine Urobilinogen (Negative) Ur Leukocyte Esterase (Negative) Urine WBC (Auto) (0-5) /hpf Urine RBC (Auto) (0-4) /hpf U Hyaline Cast (Auto) (0-5) /lpf U Epithel Cells (Auto) (0-5) /lpf Urine Bacteria (Auto) (Negative) Ur Renal Epithelial Cell (0-5) /lpf Imaging Data Radiologist's Impression: XR chest 1V portable HISTORY: 53 years-old Female eval for pna acute shortness of breath with p ossible pneumonia COMPARISON: Chest radiograph 11/14/2018 TECHNIQUE: Portable AP view of the chest FINDINGS: Cardiac silhouette is enlarged, unchanged. Stable positioning of right IJ [id number] catheter. No pneumothorax, pleural effusion, focal airspace consolidation or overt pulmonary edema. Lateral plate and screw fusion hardware about the proximal left humerus. Degenerative changes of the shoulders and spine. IMPRESSION: Cardiomegaly without acute process. The above report was generated using voice recognition software. It may contain grammatical, syntax or spelling errors. ECG Data Attestation: I personally reviewed and interpreted this ECG as follows: Indication: weakness Rate (beats per minute): 78 Rhythm: normal sinus Findings: no PVC and no ST elevation Blood Pressure Blood Pressure Findings: Elevated blood pressure Blood Pressure Disposition: further management by hospitalist [facility] Narrative I did evaluate the patient as noted above. The patient is presenting with increased lethargy. Her states this is different from usual and that he cannot transfer her from the commode to the chair. She is having significant difficulty walking. She is somewhat lethargic in the ED but this is not very different than her previous presentations. Her port was accessed. The patient was placed on a continuous school lunch monitor. I did order and personally review the patient's 12-lead EKG as described above. There is no evidence of acute ischemia. I did order and personally reviewed the images of the patient's chest x-ray as described above. No signs of pneumonia are noted. I did order a urine analysis. She does not have a UTI. I did order and review the patient's blood work as noted in the electronic medical record. She has chronic pancytopenia. Serum ammonia is over 140. The test results were discussed with the patient. Due to her increased lethargy at home per her 's report an elevated ammonia level she will be hospitalized for further care and evaluation. The case was discussed with the hospitalist and registered nurse hh case manager. I did perform an independent evaluation and examination of this patient as described. I also saw this patient in conjunction with the resident, Dr. Cynthia Bryant MD, and guided management for the patient. Impression & Plan Hepatic encephalopathy, Dysphagia Discharge Plan Visit Data Chief Complaint: Confusion Stated Complaint: CONFUSION, POOR BODY CONTROL/BALANCE, UTI ED Provider: Erick Barone ED Midlevel Provider: Cynthia Bryant Discharge Problem: Hepatic encephalopathy, Dysphagia Patient Disposition: Being Evaluated by Hospitalist Condition: Fair Discharge Instructions Krames/Other Patient Handouts: ED Confusion Activity Restrictions/Additional Instructions: You have been examined and treated today on an emergency basis only. This is not a substitute for, or an effort to provide, complete comprehensive medical care. It is impossible to recognize and treat all injuries or illnesses in a single emergency department visit. It is therefore important that you follow up closely with your physician, Dr. Zaragoza. Prescriptions Prescriptions: No Action topiramate 100 mg tablet 100 mg PO BID Qty: 60 RF: 5 lecithin 1,200 mg capsule 1,200 mg PO DAILY RF: 0 Novolog Flexpen U-100 Insulin 100 unit/mL (3 mL) insulin pen See Rx Instructions SQ .COMPLEX Qty: 1 RF: 5 ondansetron HCl [Zofran] 4 mg tablet 4 - 8 mg PO UD PRN (Reason: Nausea) RF: 0 multivitamin [Multiple Vitamins] Tablet 1 tab PO QDL RF: 0 levothyroxine 75 mcg Tablet 75 mcg PO QAM RF: 0 spironolactone 50 mg Tablet 50 mg PO QAM RF: 0 ranitidine HCl 300 mg tablet 300 mg PO HS RF: 0 omeprazole 40 mg capsule,delayed release(DR/EC) 40 mg PO QAM RF: 0 Tresiba FlexTouch U-100 100 unit/mL (3 mL) insulin pen 1 dose subcut BID RF: 0 albuterol sulfate 90 mcg/actuation HFA aerosol inhaler 2 puffs INH 6XD PRN (Reason: shortness of breath or wheezing) Qty: 8 RF: 0 Refresh Tears 0.5 % Drops 1 drp OPHTHALMIC (EYE) BID PRN (Reason: Dry Eyes) RF: 0 ibuprofen-diphenhydramine cit [Ibuprofen PM] 200-38 mg Tablet 1 cap PO HS PRN (Reason: Sleep) RF: 0 rifaximin 550 mg Tablet 550 mg PO BID RF: 0 lactulose 20 gram/30 mL solution 40 ml PO QAM RF: 0 oxcarbazepine [Trileptal] 600 mg Tablet 600 mg PO BID RF: 0 ibuprofen 200 mg tablet 200 - 400 mg PO DAILY PRN (Reason: pain/SLEEP) RF: 0 levetiracetam 750 mg tablet 1,500 mg PO BID RF: 0 vitamin A 8,000 unit Capsule 8,000 unit PO QDL RF: 0 vitamin B complex Tablet 1 tab PO QDL RF: 0 cholecalciferol (vitamin D3) [Vitamin D3] 1,000 unit Capsule 1,000 unit PO QDL RF: 0 Probiotic 3 billion cell Capsule PO QDL RF: 0 Menthol Drops 6.5 mg Lozenge PO UD PRN (Reason: Cough) RF: 0 polyethylene glycol 3350 [Miralax] 17 gram Powder In Packet 17 g PO QAM RF: 0 promethazine 25 mg tablet 25 mg PO Q6H PRN (Reason: sedation) Qty: 12 RF: 0 Referrals Referrals: Balaji Zaragoza DO [Primary Care Provider] - The scribe's documentation has been prepared under my direction and personally reviewed by me in its entirety. I confirm that the note above accurately reflects all work, treatment, procedures, and medical decision making performed by me.
[2018-12-22] MEDS ORDERED: GLUCOSE 40% GEL 15 GM TUBE PO PRN (21:29)
[2018-12-22] MEDS ORDERED: CARBOHYDRATES FOR HYPOGLYCEMIA PO PRN (21:29)
[2018-12-22] MEDS ORDERED: GLUCOSE 10 TABS/TUBE PO PRN (21:29)
[2018-12-22] MEDS ORDERED: GLUCAGON FOR INJ 1 MG VIAL SQ PRN (21:29)
[2018-12-22] MEDS ORDERED: ONDANSETRON INJ 2 MG/ML 2 ML VIAL IV PRN (21:29)
[2018-12-22] MEDS ORDERED: PROMETHAZINE HCL 25 MG TAB PO PRN (21:29)
[2018-12-22] MEDS ORDERED: IBUPROFEN 200 MG TAB PO PRN (21:29)
[2018-12-22] MEDS ORDERED: ONDANSETRON 4 MG TAB PO PRN (21:29)
[2018-12-22] MEDS ORDERED: MAGNESIUM HYDROXIDE SUSP 30 ML UDC PO PRN (21:29)
[2018-12-22] MEDS ORDERED: DEXTROSE 50% 50 ML SYRINGE IV PRN (21:29)
[2018-12-22] MEDS ORDERED: ARTIFICIAL TEARS OP PRN (21:45)
[2018-12-22] MEDS ORDERED: HEPARIN 100 UNIT/ML 5ML FLUSH FLUSH PRN (23:41)
[2018-12-23] MEDS: INSULIN ASPART 100 UNITS/ML 3 ML PEN SC SCH ×6 (00:01→20:50)
[2018-12-23] MEDS: LACTOBACILLUS ACIDOPHILUS (FLORANEX) TAB PO SCH ×5 (00:02→20:41)
[2018-12-23] MEDS: levETIRAcetam 500 MG TAB PO SCH ×3 (00:03→20:44)
[2018-12-23] MEDS: TOPIRAMATE 100 MG TAB PO SCH ×3 (00:04→20:48)
[2018-12-23] MEDS: OXcarbazepine 150 MG TABLET PO SCH ×3 (00:05→20:42)
[2018-12-23] MEDS: RIFAXIMIN 550 MG TABLET PO SCH ×3 (00:06→20:49)
[2018-12-23] MEDS: ALBUTEROL HFA 8 GM INHALER INH PRN (02:18)
[2018-12-23 05:51] LABS: Hematocrit (blood only) 27.5 % (37-47); Hemoglobin 10.3 g/dL (12.0-16.0); Mean Corpuscular Hemoglobin 37.7 pg (25-34); Mean Corpuscular Hgb Conc 37.5 g/dL (32-36); Mean Corpuscular Volume 100.7 fL (80-100); RDW Coefficient of Variation 13.7 % (11.5-14.5); Red Blood Count 2.73 M/uL (4.2-5.4); White Blood Count 3.22 K/uL (4.8-10.8)
[2018-12-23 05:52] LABS: Mean Platelet Volume 9.5 fL (7.4-10.4); Platelet Count 83 K/uL (130-400)
[2018-12-23 06:16] LABS: Basophils # (auto) 0.04 K/uL (0-0.2); Basophils % (auto) 1.2 %; Eosinophils # (auto) 0.14 K/uL (0-0.5); Eosinophils % (auto) 4.3 %; Lymphocytes # (auto) 1.36 K/uL (1.2-3.4); Lymphocytes % (auto) 42.2 %; Monocytes # (auto) 0.34 K/uL (0.11-0.59); Monocytes % (auto) 10.6 %; Neutrophils # (auto) 1.34 K/uL (1.4-6.5); Neutrophils % (auto) 41.7 %; Ovalocytes 1+
[2018-12-23] MEDS: LEVOTHYROXINE SODIUM 75 MCG TABLET PO SCH (06:17)
[2018-12-23 06:21] LABS: BUN Creatinine Ratio 18.6 (10-20); Calcium 7.9 mg/dl (8.5-10.1); Creatinine Clr Calc Pharmacy 132.9 ml/min; Est GFR (African American) 125.6; Est GFR (Non-African American) 108.4; Potassium 3.5 mmol/L (3.5-5.1)
[2018-12-23 06:31] LABS: Thyroid Stimulating Hormone 0.306 uIu/ml (0.300-4.500)
[2018-12-23 06:38] LABS: Estimated Average Glucose 80 mg/dl; Hemoglobin A1C 4.4 % (4.5-5.6)
[2018-12-23] MEDS ORDERED: NON-FORMULARY MEDICATION (Lecithin 1,200 MG) PO SCH (09:00)
[2018-12-23] MEDS ORDERED: LACTULOSE SYRUP 20 GM/30 ML UDC PO SCH (09:00)
[2018-12-23] MEDS: SPIRONOLACTONE 25 MG TAB PO SCH (09:11)
[2018-12-23] MEDS: PANTOprazole 40 MG TAB PO SCH (09:14)
[2018-12-23] MEDS: POLYETHYLENE (MIRALAX) 17 GM PACK PO SCH (09:15)
[2018-12-23] MEDS ORDERED: IBUPROFEN 200 MG TAB PO PRN (10:56)
[2018-12-23] MEDS ORDERED: NON-FORMULARY MEDICATION (Vitamin A 8,000 UNITS) PO SCH (11:30)
[2018-12-23] MEDS: CHOLECALCIFEROL 1,000 UNITS TAB PO SCH (13:09)
[2018-12-23] MEDS: VITAMIN B COMPLEX TAB PO SCH (13:10)
[2018-12-23] MEDS: MULTIVITAMIN TAB PO SCH (13:10)
--- NOTE | 2018-12-23 14:14 | XRay Report ---
XR chest 1V portable HISTORY: 53 years-old Female cough, dyspnea; eval pneumonia acute cough with shortness of breath COMPARISON: Chest radiograph 12/22/2018 TECHNIQUE: Portable AP view of the chest FINDINGS: Study limited secondary to positioning. Cardiac silhouette is enlarged, unchanged. Ill-defined right upper lung opacities. Stable positioning of right IJ Vvpzhv-[id number]-[id number] catheter. No pneumothorax, pleural effusion or overt pulmonary. ORIF changes of the left proximal humerus. Degenerative changes of the shoulders and spine. IMPRESSION: 1. Limited exam secondary to positioning. 2. Ill-defined right upper lobe opacities may be secondary to airspace disease versus summation densi ty. Finding could be correlated with follow-up PA and lateral views of the chest. 3. Cardiomegaly without overt pulmonary edema. The above report was generated using voice recognition software. It may contain grammatical, syntax o r spelling errors. Electronically signed by: Deion Segura M.D. 12/23/2018 2:12 PM
[2018-12-23] MEDS: LACTULOSE SYRUP 20 GM/30 ML UDC PO SCH (16:51)
--- NOTE | 2018-12-23 20:19 | Hospitalist Progress Note ---
Date of Service December 23, 2018 Assessment & Plan (1) Acute hepatic encephalopathy: improving. increase lactulose to BID dosiong -- titrate 2-3 BMs/day. ammonia level in am. check cxr to r/o infectious process that could have precipitated the event. no evidence of UTI. if no infection found then likely due to noncompliance w/ lactulose (numerous past episodes of such due to noncompliance w/ meds). cont rifaximin. (2) Cirrhosis: compensated from volume standpoint treat hepatic encephalopathy (3) Controlled type 2 diabetes mellitus, with long-term current use of insulin: resume Tresiba normally takes 40 units BID but sugars well-controlled today would resume it but only give 15 units daily and follow novolog SSI w/ meals (4) Cough: check cxr, r/o pneumonia (5) Hypothyroidism: TSH 0.3 cont synthroid as is (6) Pancytopenia: 2nd to MDS, cirrhosis, etc counts all low but stable/acceptable relative to prior CBCs (7) Myelodysplastic syndrome: chronic, stable (8) Seizure disorder: cont home meds no recent seizures needs PT/OT evals start SC heparin in am for DVT proph Subjective patient feels groggy/tired but amazingly, when I entered the room, she said "abundio Haney" she reports ongoing cough and dyspnea at rest denies abd pain no nausea/emesis having frequent stools Review of Systems Constitutional: no fever Respiratory: no sputum production Cardiovascular: no chest pain Gastrointestinal: no abdominal pain Genitourinary: no dysuria Physical Exam Constitutional: no acute distress looks older than stated age ENMT: external ear and nose normal, oropharynx normal Respiratory: normal respiratory effort, lungs clear to auscultation Cardiovascular: Rate/Rhythm: regular rate and regular rhythm Heart Sounds: normal S1 and normal S2 Vessels: posterior tibial pulses present and dorsalis pedis pulses present; no JVD Extremities: no edema Gastrointestinal (Abdomen): normal bowel sounds, soft, nontender, no hepatosplenomegaly Neurologic: + confused (mild) Motor/Sensory: + asterixis Psychiatric: Orientation: oriented to person and oriented to place; + not alert (mildly sleepy) and + not oriented to time Results & Data Vital Signs (Past 12 Hours) Vital Signs Temp Pulse Resp BP Pulse Ox 12/23/18 15:40 37.0 C 73 18 136/76 100 Laboratory Results Laboratory Results - last 24 hr 12/22/18 12/23/18 12/23/18 21:31 05:39 05:39 WBC 3.22 L RBC 2.73 L Hgb 10.3 L Hct 27.5 L MCV 100.7 H MCH 37.7 H MCHC 37.5 H RDW Std Deviation 50.0 H RDW Coeff of Irina 13.7 Plt Count 83 L MPV 9.5 Immature Gran % (Auto) 0.0 Neut % (Auto) 41.7 Lymph % (Auto) 42.2 [place] % (Auto) 10.6 Eos % (Auto) 4.3 Baso % (Auto) 1.2 Immature Gran # (Auto) 0.00 Neut # (Auto) 1.34 L Lymph # (Auto) 1.36 [place] # (Auto) 0.34 Eos # (Auto) 0.14 Baso # (Auto) 0.04 Ovalocytes 1+ Sodium 137 Potassium 3.5 Chloride 107 Carbon Dioxide 21 Anion Gap 9.0 BUN 10 Creatinine 0.53 L Est Cr Clr Drug Dosing 132.9 Est GFR ( Amer) 125.6 Est GFR (Non-Af Amer) 108.4 BUN/Creatinine Ratio 18.6 Glucose 80 POC Glucose 110 H Estimat Average Glucose Hemoglobin A1c Calcium 7.9 L Ammonia TSH 0.306 12/23/18 12/23/18 12/23/18 05:39 05:39 06:25 WBC RBC Hgb Hct MCV MCH MCHC RDW Std Deviation RDW Coeff of Irina Plt Count MPV Immature Gran % (Auto) Neut % (Auto) Lymph % (Auto) [place] % (Auto) Eos % (Auto) Baso % (Auto) Immature Gran # (Auto) Neut # (Auto) Lymph # (Auto) [place] # (Auto) Eos # (Auto) Baso # (Auto) Ovalocytes Sodium Potassium Chloride Carbon Dioxide Anion Gap BUN Creatinine Est Cr Clr Drug Dosing Est GFR ( Amer) Est GFR (Non-Af Amer) BUN/Creatinine Ratio Glucose POC Glucose 80 Estimat Average Glucose 80 Hemoglobin A1c 4.4 L Calcium Ammonia 107.6 H TSH 12/23/18 12/23/18 12/23/18 07:58 11:51 16:44 WBC RBC Hgb Hct MCV MCH MCHC RDW Std Deviation RDW Coeff of Irina Plt Count MPV Immature Gran % (Auto) Neut % (Auto) Lymph % (Auto) [place] % (Auto) Eos % (Auto) Baso % (Auto) Immature Gran # (Auto) Neut # (Auto) Lymph # (Auto) [place] # (Auto) Eos # (Auto) Baso # (Auto) Ovalocytes Sodium Potassium Chloride Carbon Dioxide Anion Gap BUN Creatinine Est Cr Clr Drug Dosing Est GFR ( Amer) Est GFR (Non-Af Amer) BUN/Creatinine Ratio Glucose POC Glucose 94 182 H 157 H Estimat Average Glucose Hemoglobin A1c Calcium Ammonia TSH PG Care Time/CCT Total # of Minutes Spent Total Time Spent with Patient: Total time spent is greater than 50% in coordination of care (as documented) at patient's floor/unit and/or counseling patient: (1) Cirrhosis Hepatic cirrhosis type: other cirrhosis Qualified Code(s): K74.69 - Other cirrhosis of liver (2) Controlled type 2 diabetes mellitus, with long-term current use of insulin 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 complication status: with other specified complication Qualified Code(s): E11.69 - Type 2 diabetes mellitus with other specified complication; Z79.4 - terminal gauger (current) use of insulin (3) Hypothyroidism Hypothyroidism type: unspecified Qualified Code(s): E03.9 - Hypothyroidism, unspecified
[2018-12-23] MEDS: NON-FORMULARY PATIENT'S OWN MED SC SCH ×2 (20:45→22:40)
[2018-12-24] MEDS: LEVOTHYROXINE SODIUM 75 MCG TABLET PO SCH (05:28)
[2018-12-24 06:12] LABS: Hematocrit (blood only) 29.4 % (37-47); Hemoglobin 10.9 g/dL (12.0-16.0); Mean Corpuscular Hemoglobin 36.9 pg (25-34); Mean Corpuscular Hgb Conc 37.1 g/dL (32-36); Mean Corpuscular Volume 99.7 fL (80-100); RDW Coefficient of Variation 13.5 % (11.5-14.5); RDW Standard Deviation 49.3 fL (36.4-46.3); Red Blood Count 2.95 M/uL (4.2-5.4); White Blood Count 3.61 K/uL (4.8-10.8)
[2018-12-24 06:17] LABS: Mean Platelet Volume 9.4 fL (7.4-10.4); Platelet Count 90 K/uL (130-400)
[2018-12-24 06:29] LABS: BUN Creatinine Ratio 15.7 (10-20); Calcium 8.2 mg/dl (8.5-10.1); Creatinine Clr Calc Pharmacy 140.9 ml/min; Est GFR (African American) 128.1; Est GFR (Non-African American) 110.5; Potassium 3.9 mmol/L (3.5-5.1)
[2018-12-24] MEDS: INSULIN ASPART 100 UNITS/ML 3 ML PEN SC SCH ×3 (08:40→18:30)
[2018-12-24] MEDS: PANTOprazole 40 MG TAB PO SCH (08:42)
[2018-12-24] MEDS: LACTOBACILLUS ACIDOPHILUS (FLORANEX) TAB PO SCH ×3 (08:42→16:36)
[2018-12-24] MEDS: RIFAXIMIN 550 MG TABLET PO SCH (08:43)
[2018-12-24] MEDS: TOPIRAMATE 100 MG TAB PO SCH (08:43)
[2018-12-24] MEDS: OXcarbazepine 150 MG TABLET PO SCH (08:43)
[2018-12-24] MEDS: levETIRAcetam 500 MG TAB PO SCH (08:43)
[2018-12-24] MEDS: LACTULOSE SYRUP 20 GM/30 ML UDC PO SCH ×2 (08:45→16:34)
[2018-12-24] MEDS: POLYETHYLENE (MIRALAX) 17 GM PACK PO SCH (08:45)
[2018-12-24] MEDS: ALBUTEROL HFA 8 GM INHALER INH PRN (08:48)
[2018-12-24] MEDS ORDERED: NON-FORMULARY PATIENT'S OWN MED INH SCH (09:00)
[2018-12-24] MEDS: VITAMIN B COMPLEX TAB PO SCH (10:33)
[2018-12-24] MEDS: MULTIVITAMIN TAB PO SCH (10:34)
[2018-12-24] MEDS: HEPARIN SOD 5,000 UNIT/0.5 ML VIAL SQ SCH ×2 (10:34→15:12)
[2018-12-24] MEDS: CHOLECALCIFEROL 1,000 UNITS TAB PO SCH (10:34)
[2018-12-24] MEDS: SPIRONOLACTONE 25 MG TAB PO SCH (10:35)
--- NOTE | 2018-12-29 09:47 | Discharge Summary ---
Date of Service date of admission - 12/22/18 date of discharge - 12/24/18 Admission HPI Per Admitting Provider 53 y/o female who was brought to the ED by her for worsening confusion and lethargy. is not present during my discussion with pt. Per ED resident, pt's states that pt has required more assistance with ambulation or getting off of the toilet. She is not assisting in this at all. She has been more confused as well. She has had decreased PO intake. She is apparently in the process of a swallow evaluation and had an aspiration study done. Per pt, she does feel more confused. She tells me that this AM she took 20ml of lactulose instead of her usual 40ml due to frequency of bowel movements. She denies having decreased her dose prior to today. She states she has been having increased UOP. She is having burning that is associated with UOP but also just general burning. No itching. She has had yeast infections in the past and states this feels similar. Pt denies fever, SOB, chest pain, abd pain, n/v, LE pain or swelling. Principal Diagnosis hepatic encephalopathy Discharge Exam Constitutional no acute distress and no altered mental status ENMT external ear and nose normal, oropharynx normal Respiratory normal respiratory effort, lungs clear to auscultation Cardiovascular Rate/Rhythm: regular rate and regular rhythm Heart Sounds: normal S1 and normal S2 Vessels: posterior tibial pulses present and dorsalis pedis pulses present; no JVD Extremities: no edema Gastrointestinal (Abdomen) normal bowel sounds, soft, nontender, no hepatosplenomegaly Neurologic Motor/Sensory: + asterixis (resolved) Psychiatric Orientation: alert (mildly sleepy) and oriented x 3 Discharge Data Allergies Allergy/AdvReac Type Severity Reaction Status Date / Time metronidazole Allergy Severe SEIZURE Verified 12/28/18 08:12 tramadol Allergy Severe SEIZURES Verified 12/28/18 08:12 amoxicillin Allergy Intermediate HIVES; Has Verified 12/28/18 08:12 tolerated cephalosporins (Rocephin, Ceftin,Keflex baclofen Allergy Intermediate RASH Verified 12/28/18 08:12 butalbital Allergy Intermediate HIVES Verified 12/28/18 08:12 cat dander Allergy Intermediate Hives Verified 12/28/18 08:12 ceftriaxone [From Rocephin] Allergy Intermediate Hives Verified 12/28/18 08:12 clarithromycin Allergy Intermediate RASH Verified 12/28/18 08:12 clavulanic acid Allergy Intermediate Diarrhea Verified 12/28/18 08:12 dicyclomine Allergy Intermediate HIVES Verified 12/28/18 08:12 dog dander Allergy Intermediate Hives Verified 12/28/18 08:12 horse dander Allergy Intermediate Hives Verified 12/28/18 08:12 mivacurium Allergy Intermediate HIVES Verified 12/28/18 08:12 Penicillins Allergy Intermediate RASH; has Verified 12/28/18 08:12 tolerated cephs (Rocephin, Keflex, Ceftin) pollen extracts Allergy Intermediate Hives Verified 12/28/18 08:12 Tetracyclines Allergy Intermediate DOXYCYCLINE Verified 12/28/18 08:12 -HIVES adhesive Allergy Mild RASH, Verified 12/28/18 08:12 DUODERM=RED,ITCHY grape Allergy Mild Nausea Verified 12/28/18 08:12 sulindac Allergy Mild ALLERGY Verified 12/28/18 08:12 LISTED "CLONDORAL"--HIVES Cephalosporins AdvReac Severe TURNS Verified 12/28/18 08:12 STOOL VERY DARK furosemide AdvReac Severe HIVES Verified 12/28/18 08:12 metoclopramide AdvReac Severe SEIZURES Verified 12/28/18 08:12 cefdinir AdvReac Intermediate Diarrhea Verified 12/28/18 08:12 blueberry AdvReac Mild STOMACH Verified 12/28/18 08:12 PAIN celecoxib AdvReac Mild HIVES Verified 12/28/18 08:12 Consultations PT, OT Hospital Course (1) Acute hepatic encephalopathy: Improved with simply continuing her lactulose and increasing it to BID dosing. Ammonia level decreased to the 90s and encephalopathy resolved with mental status returning to baseline. Suspect noncompliance with lactulose leading to this admission. This has been a recurrent problem in the past. She was counseled once again to titrate her lactulose at home to maintain 2-3 bowel movements/day. No infectious process was found during the visit that could have precipitated th e event. Multiple cxr's without pneumonia. No UTI. She will continue rifaximin in addition to lactulose. (2) Cirrhosis: compensated from volume standpoint during the visit. followed by Sonja MAGAÑA. (3) Controlled type 2 diabetes mellitus, with long-term current use of insulin: Controlled while hospitalized. Continue novolog with meals and Tresiba 15 units qam. (4) Cough: checked cxr x 2 - no evidence of pneumonia while hospitalized. O2 sats 100% in room air. (5) Hypothyroidism: TSH 0.3 cont synthroid as is (6) Pancytopenia: 2nd to MDS, cirrhosis, etc counts all low but stable/acceptable relative to prior CBCs (7) Myelodysplastic syndrome: chronic, stable (8) Seizure disorder: cont home meds no recent seizures seen by PT/OT while hospitalized and cleared for home with her Total Time Total Time Spent Total Time Spent (In Minutes): 25 Total Time Includes: Examination of the Patient, Discharge Planning, Medication Reconciliation and Communication With Other Providers Discharge Plan Discharge Items Patient Disposition: Home - Home Health Services Reason For Visit: CONFUSION Discharge Diagnosis: CONFUSION DUE TO HEPATIC ENCEPHALOPATHY (ELEVATED AMMONIA LEVELS) Condition on Discharge: Fair Goals: 1. lower ammonia levels 2. improve confusion Activity: Resume your previous activity Non-emergency contact: Primary Care Provider Call non-emergency contact if: you have any medication questions Follow-up/Referrals: Patti Johns [Family Provider] - 12/28/18 (see Dr Johns for EGD on Friday , 12/28 as scheduled) Balaji Zaragoza DO [Primary Care Provider] - (see your family doctor within 1 week) Diet: Carb Consistent or DM2 and Low Sodium (2gm) Fluids: 1800ml (7 cups) Addtl Attending Provider Instructions: You were seen at [facility] for confusion and weakness. Your ammonia levels were elevated consistent with hepatic encephalopathy. You have had this on prior hospital stays. The elevated ammonia levels were treated with increased doses of lactulose. Please titrate (adjust) the lactulose for 2-3 bowel movements each day. You may have to increase the lactulose to 40ml twice a day to achieve this goal. Continue your twice daily rifaximin as previous. We did not find evidence of any infections while hospitalized. Follow-up - see separate section Return to [facility] if -- * you have increasing weakness or lethargy * you have worsening shortness of breath or chest pain * you have worsening swelling in your abdomen or your legs * you have fever over 100.5 degrees * any other concerns Pending Studies at Discharge: No Stand-Alone Forms: [facility] Medications and DC Order Prescriptions: Continued topiramate 100 mg tablet 100 mg PO BID Qty: 60 RF: 5 lecithin 1,200 mg capsule 1,200 mg PO DAILY RF: 0 Novolog Flexpen U-100 Insulin 100 unit/mL (3 mL) insulin pen See Rx Instructions SQ .COMPLEX Qty: 1 RF: 5 ondansetron HCl [Zofran] 4 mg tablet 4 - 8 mg PO UD PRN (Reason: Nausea) RF: 0 multivitamin [Multiple Vitamins] Tablet 1 tab PO QDL RF: 0 levothyroxine 75 mcg Tablet 75 mcg PO QAM RF: 0 spironolactone 50 mg Tablet 50 mg PO QAM RF: 0 ranitidine HCl 300 mg tablet 300 mg PO HS RF: 0 omeprazole 40 mg capsule,delayed release(DR/EC) 40 mg PO QAM RF: 0 albuterol sulfate 90 mcg/actuation HFA aerosol inhaler 2 puffs INH 6XD PRN (Reason: shortness of breath or wheezing) Qty: 8 RF: 0 Refresh Tears 0.5 % Drops 1 drp OPHTHALMIC (EYE) BID PRN (Reason: Dry Eyes) RF: 0 ibuprofen-diphenhydramine cit [Ibuprofen PM] 200-38 mg Tablet 1 cap PO HS PRN (Reason: Sleep) RF: 0 rifaximin 550 mg Tablet 550 mg PO BID RF: 0 lactulose 20 gram/30 mL solution 40 ml PO QAM RF: 0 oxcarbazepine [Trileptal] 600 mg Tablet 600 mg PO BID RF: 0 ibuprofen 200 mg tablet 200 - 400 mg PO DAILY PRN (Reason: pain/SLEEP) RF: 0 levetiracetam 750 mg tablet 1,500 mg PO BID RF: 0 vitamin A 8,000 unit Capsule 8,000 unit PO QDL RF: 0 vitamin B complex Tablet 1 tab PO QDL RF: 0 cholecalciferol (vitamin D3) [Vitamin D3] 1,000 unit Capsule 1,000 unit PO QDL RF: 0 Probiotic 3 billion cell Capsule PO QDL RF: 0 Menthol Drops 6.5 mg Lozenge PO UD PRN (Reason: Cough) RF: 0 polyethylene glycol 3350 [Miralax] 17 gram Powder In Packet 17 g PO QAM RF: 0 promethazine 25 mg tablet 25 mg PO Q6H PRN (Reason: sedation) Qty: 12 RF: 0 Changed Tresiba FlexTouch U-100 100 unit/mL (3 mL) insulin pen 15 unit subcut QAM Qty: 0 RF: 0 No Action prochlorperazine maleate [Compazine] 10 mg tablet 10 mg PO BID PRN (Reason: nausea and vomiting) 30 Days Qty: 12 RF: 0 tizanidine 4 mg capsule 4 mg PO Q8H PRN (Reason: muscle spasticity) 30 Days Qty: 12 RF: 0 Discharge Orders: Discharge Order (Routine); Ordered 12/24/18 Ordered By: Sammy Haney Admission Data Admit Date/Time: 12/22/18 17:58 Attending Provider: Sammy Haney Admit Provider: Geri Bergeron Primary Care Provider: Balaji Zaragoza Other Providers: Geri Bergeron Other Interventions: Discharge Summary Assessment (RN) Last Done: 12/24/18 18:44 DC Date/Time DO NOT enter until pt leaves facility: 12/24/18 19:05
== END 2018-12-24 19:05 | disposition home health service (06) | DRG 442 ==
LOC: ED 14:04 → SUATTDRO 17:58 → 4W 17:58

== ENCOUNTER 2018-12-31 14:43 | Observation (INO) ==
[2018-12-31] MEDS ORDERED: SODIUM CHLORIDE 0.9% 1000ML 1,000 ML IV ONE (15:06)
--- NOTE | 2018-12-31 15:19 | Emergency Department Note ---
Entered by Anay Reyes acting as a scribe for Jorden Doyle MD History of Present Illness General Chief complaint: Altered Mental Status Stated complaint: JUST NOT WITH IT TODAY Time Seen by Provider: 12/31/18 14:59 Source: patient and family () Mode of arrival: wheelchair Limitations: altered mental status History of Present Illness Onset (ago): day(s) 1 Location: head Radiation: non-radiation Pain Consistency: + constant Relieved By: + none Exacerbated By: + none Associated symptoms: + cough Treatments prior to arrival: none The patient is a 53 year old female who presents to the ED with complaints of altered mental status. She is accompanied by her . He states since this morning she has been non-communicative. Her BSG upon waking was 103. The patient has not eaten yet today. Her denies any new medications but believes the patient may now be on Macrobid. She was recently admitted to the hospital last week for confusion and a high ammonia level. The patient did lose control of her bladder and bowels over night per her . He states she has been coughing for the past 2 months and had an EGD done 3 days ago. Home Medications Home Medications Medication Instructions Recorded Confirmed Type levothyroxine 75 mcg PO QAM 12/26/17 12/31/18 History multivitamin [Multiple Vitamins] 1 tab PO QDL 12/26/17 12/31/18 History spironolactone 50 mg PO QAM 12/26/17 12/31/18 History lactulose 40 ml PO QAM 01/18/18 12/31/18 History rifaximin 550 mg PO BID 01/18/18 12/31/18 History omeprazole 40 mg PO QAM 03/13/18 12/31/18 History ranitidine HCl 300 mg PO HS 03/13/18 12/31/18 History ibuprofen 200 - 400 mg PO DAILY PRN 08/07/18 12/31/18 History oxcarbazepine [Trileptal] 600 mg PO BID 08/12/18 12/31/18 History levetiracetam 1,500 mg PO BID 09/12/18 12/31/18 History Probiotic 0 mmu cells PO QDL 09/20/18 12/31/18 History cholecalciferol (vitamin D3) 1,000 unit PO QDL 09/20/18 12/31/18 History [Vitamin D3] vitamin A 8,000 unit PO QDL 09/20/18 12/31/18 History vitamin B complex 1 tab PO QDL 09/20/18 12/31/18 History Menthol Drops 0 mg PO UD PRN 10/03/18 12/31/18 History albuterol sulfate 2 puffs INH 6XD PRN #8 gm 10/21/18 12/31/18 Rx polyethylene glycol 3350 [Miralax] 17 g PO QAM 10/27/18 12/31/18 History promethazine 25 mg PO Q6H PRN #12 tab 10/27/18 12/31/18 Rx Novolog Flexpen U-100 Insulin See Rx Instructions SQ .COMPLEX #1 11/17/18 12/31/18 Rx aspart 100 unit/mL (3 mL) box NS subcutaneous lecithin 1,200 mg capsule 1,200 mg PO DAILY 11/17/18 12/31/18 History ondansetron HCl 4 mg tablet 4 - 8 mg PO UD PRN tab 11/26/18 12/31/18 History topiramate 100 mg tablet 100 mg PO BID #60 tab 12/04/18 12/31/18 Rx Refresh Tears 1 drp OPHTHALMIC (EYE) BID PRN 12/22/18 12/31/18 History ibuprofen-diphenhydramine cit 1 cap PO HS PRN 12/22/18 12/31/18 History [Ibuprofen PM] Tresiba FlexTouch U-100 15 unit SUBCUT QAM #0 ml 12/24/18 12/31/18 Rx prochlorperazine maleate 10 mg 10 mg PO BID PRN 30 Days #12 tab 12/25/18 12/31/18 Rx tablet tizanidine 4 mg capsule 4 mg PO Q8H PRN 30 Days #12 cap 12/25/18 12/31/18 Rx Allergies Allergy/AdvReac Type Severity Reaction Status Date / Time metronidazole Allergy Severe SEIZURE Verified 12/31/18 15:34 tramadol Allergy Severe SEIZURES Verified 12/31/18 15:34 amoxicillin Allergy Intermediate HIVES; Has Verified 12/31/18 15:34 tolerated cephalosporins (Rocephin, Ceftin,Keflex baclofen Allergy Intermediate RASH Verified 12/31/18 15:34 butalbital Allergy Intermediate HIVES Verified 12/31/18 15:34 cat dander Allergy Intermediate Hives Verified 12/31/18 15:34 ceftriaxone [From Rocephin] Allergy Intermediate Hives Verified 12/31/18 15:34 clarithromycin Allergy Intermediate RASH Verified 12/31/18 15:34 clavulanic acid Allergy Intermediate Diarrhea Verified 12/31/18 15:34 dicyclomine Allergy Intermediate HIVES Verified 12/31/18 15:34 dog dander Allergy Intermediate Hives Verified 12/31/18 15:34 horse dander Allergy Intermediate Hives Verified 12/31/18 15:34 mivacurium Allergy Intermediate HIVES Verified 12/31/18 15:34 Penicillins Allergy Intermediate RASH; has Verified 12/31/18 15:34 tolerated cephs (Rocephin, Keflex, Ceftin) pollen extracts Allergy Intermediate Hives Verified 12/31/18 15:34 Tetracyclines Allergy Intermediate DOXYCYCLINE Verified 12/31/18 15:34 -HIVES adhesive Allergy Mild RASH, Verified 12/31/18 15:34 DUODERM=RED,ITCHY grape Allergy Mild Nausea Verified 12/31/18 15:34 sulindac Allergy Mild ALLERGY Verified 12/31/18 15:34 LISTED "CLONDORAL"--HIVES Cephalosporins AdvReac Severe TURNS Verified 12/31/18 15:34 STOOL VERY DARK furosemide AdvReac Severe HIVES Verified 12/31/18 15:34 metoclopramide AdvReac Severe SEIZURES Verified 12/31/18 15:34 cefdinir AdvReac Intermediate Diarrhea Verified 12/31/18 15:34 blueberry AdvReac Mild STOMACH Verified 12/31/18 15:34 PAIN celecoxib AdvReac Mild HIVES Verified 12/31/18 15:34 Past Med/Surg History Medical History GERD (gastroesophageal reflux disease) CONTROLLED 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, type 2 IDDM Hypothyroidism Asthma STABLE Seizure disorder (05/26/11) + PSEUDOSEIZURES Cirrhosis NON-ALCOHOLIC FATTY LIVER DISEASE Hyperammonemia (Inactive) Abnormal finding on mammography Depression Dysphagia Hepatic encephalopathy HX; ON LACTULOSE/XIFAXAN Hx of migraines Myoclonic seizure "FREQUENT MYOCLONIC SEIZURES" FOLLOWS WITH DR. YANG Pancytopenia CHRONIC Surgical History History of cholecystectomy History of hysterectomy History of tonsillectomy History of kyphoplasty History of appendectomy History of ankle surgery B/L History of colonoscopy History of esophagogastroduodenoscopy (EGD) History of surgery on arm LEFT History of tooth extraction Hx of carpal tunnel repair B/L Hx of cataract extraction B/L S/P laminectomy lumbar spine S/P nasal surgery nasal bone fracture repair Family History Other Adopted No pertinent family history Social History Preferred Language: [place] Communication Ability: Effective Visual Impairment: No Limitations Petrographer Required: No Beliefs That Will Affect Care: None marital status: Current Living Situation: Spouse Current Living Situation Comment: Lives with in apartment current occupational status: unemployed and disabled Feels Safe at Home: Yes Smoking Status: Never smoker Second Hand Exposure: No ; Hx Alcohol Use: Yes Alcohol type: hard liquor Hx Substance Use: No Seatbelt Use: always Review of Systems See HPI for pertinent positives & negatives. and A total of 10 systems reviewed and were otherwise negative Physical Exam Vital Signs Vital Signs - 24 hr 12/31/18 14:45 12/31/18 15:05 12/31/18 16:41 Temperature 36.8 C Temperature Source Oral Sepsis Recent Fever Within 48 Hours No Sepsis New/Unexplained Change in Mental Status No Sepsis Action Taken by Nursing No Action Required Pulse Rate 82 78 Pulse Rate from SpO2 Sensor 77 Pulse Rhythm Regular Pulse Strength Normal Respiratory Rate 20 18 Respiratory Effort / Characteristics Non-Labored Spontaneous Nasal Congestion Respiratory Depth Normal Respiratory Pattern Regular Blood Pressure 164/106 H 152/68 H Blood Pressure Mean 125 96 Blood Pressure Position Sitting Pulse Oximetry 100 100 Oxygen Delivery Method Room Air Room Air 12/31/18 17:30 12/31/18 18:00 12/31/18 18:01 Temperature Temperature Source Sepsis Recent Fever Within 48 Hours Sepsis New/Unexplained Change in Mental Status Sepsis Action Taken by Nursing Pulse Rate 82 79 78 Pulse Rate from SpO2 Sensor Pulse Rhythm Pulse Strength Respiratory Rate 20 19 18 Respiratory Effort / Characteristics Respiratory Depth Respiratory Pattern Blood Pressure 156/86 H 149/76 H Blood Pressure Mean 109 100 Blood Pressure Position Pulse Oximetry 100 100 Oxygen Delivery Method Room Air Room Air 12/31/18 18:31 10/03/19 19:00 12/31/18 19:31 Temperature Temperature Source Sepsis Recent Fever Within 48 Hours Sepsis New/Unexplained Change in Mental Status Sepsis Action Taken by Nursing Pulse Rate 81 80 82 Pulse Rate from SpO2 Sensor Pulse Rhythm Pulse Strength Respiratory Rate 19 20 23 Respiratory Effort / Characteristics Respiratory Depth Respiratory Pattern Blood Pressure 138/52 L 144/74 H 170/85 H Blood Pressure Mean 80 97 113 Blood Pressure Position Pulse Oximetry 100 98 100 Oxygen Delivery Method Room Air Room Air Room Air 12/31/18 20:00 Temperature Temperature Source Sepsis Recent Fever Within 48 Hours Sepsis New/Unexplained Change in Mental Status Sepsis Action Taken by Nursing Pulse Rate 75 Pulse Rate from SpO2 Sensor Pulse Rhythm Pulse Strength Respiratory Rate 20 Respiratory Effort / Characteristics Respiratory Depth Respiratory Pattern Blood Pressure 138/69 Blood Pressure Mean 92 Blood Pressure Position Pulse Oximetry 100 Oxygen Delivery Method Room Air General: Chronically-ill appearing middle aged female, sleeping in a wheelchair, opens eyes to stimuli but falls back asleep. HEENT: Normal cephalic atraumatic. Pupils are equal round and reactive to light. Extraocular movements are intact. Oropharynx is pink with moist mucous membranes. No swelling of the mouth lips or tongue. Neck: Supple with a midline trachea. No meningeal signs or stiffness, no JVD or bruits. No Stridor. Chest: Clear to auscultation bilaterally. No wheezes or rhonchi. No increased work of breathing. Heart: regular rate and rhythm. Abdomen: Soft nontender, nondistended without rebound guarding or rigidity. Extremities: No cyanosis clubbing or edema. No calf tenderness or asymmetry Spine/Back. Non tender to palpation. No CVA tenderness Skin: Good turgor without rashes. Neurologic exam: Cranial nerves two through 12 are intact. Motor and sensation are intact and symmetrical throughout. Course 1500: The patient was evaluated in room C9 and a complete history and physical were performed. 1720: [facility] the [facility] The patient will be further evaluated. 1735: I reevaluated the patient. She is resting. I discussed her results and my recommendation she remain in the hospital for further evaluation and management and she and her verbalized complete understanding and agreement. Consultations Consultation #1: I discussed the patients case with Dr. Zuluaga [facility]. The patient will be further evaluated. Time: 17:20 Administered Medications Discontinued Medications Sodium Chloride (Nss 1000ml) 1,000 mls @ 999 mls/hr IV .Q1H1M ONE Stop: 12/31/18 16:06 Last Infusion: 12/31/18 18:04 Dose: 0 mls/hr Documented by: [id number] Admin: 12/31/18 16:45 Dose: 999 mls/hr Documented by: [id number] Ertapenem 1,000 mg/ Sodium (Chloride) 60 mls @ 100 mls/hr IV NOW STA Stop: 12/31/18 18:07 Last Infusion: 12/31/18 18:40 Dose: 0 mls/hr Documented by: [id number] Admin: 12/31/18 18:03 Dose: 100 mls/hr Documented by: [id number] Medical Decision Making Differential Diagnosis The differential diagnoses considered include sepsis, AMS, liver failure, encephalopathy, electrolyte or metabolic abnormality. Medical Records Attestation: I reviewed the patient's medical records. Home Medications Current Medication List: was personally reviewed by me Laboratory Data Attestation: I reviewed the patient's lab results. Result diagrams: 12/31/18 15:48 12/31/18 15:48 Lab Results 12/31/18 12/31/18 12/31/18 Range/Units 15:48 15:48 15:48 WBC 3.61 L (4.8-10.8) K/uL RBC 2.85 L (4.2-5.4) M/uL Hgb 10.6 L (12.0-16.0) g/dL Hct 29.0 L (37-47) % MCV 101.8 H (80-100) fL MCH 37.2 H (25-34) pg MCHC 36.6 H (32-36) g/dL RDW Std Deviation 49.2 H (36.4-46.3) fL RDW Coeff of Irina 13.5 (11.5-14.5) % Plt Count 98 L (130-400) K/uL MPV 9.9 (7.4-10.4) fL Immature Gran % (Auto) 0.0 % Neut % (Auto) 46.8 % Lymph % (Auto) 35.5 % [place] % (Auto) 9.4 % Eos % (Auto) 7.2 % Baso % (Auto) 1.1 % Immature Gran # (Auto) 0.00 (0.00-0.02) K/uL Neut # (Auto) 1.69 (1.4-6.5) K/uL Lymph # (Auto) 1.28 (1.2-3.4) K/uL [place] # (Auto) 0.34 (0.11-0.59) K/uL Eos # (Auto) 0.26 (0-0.5) K/uL Baso # (Auto) 0.04 (0-0.2) K/uL Platelet Estimate Decreased L (Normal) Sodium 139 (136-145) mmol/L Potassium 3.7 (3.5-5.1) mmol/L Chloride 110 H (98-107) mmol/L Carbon Dioxide 20 L (21-32) mmol/L Anion Gap 9.0 (3-11) BUN 9 (7-18) mg/dl Creatinine 0.50 L (0.6-1.2) mg/dl Est Cr Clr Drug Dosing Not Reportable Est GFR ( Amer) 128.1 Est GFR (Non-Af Amer) 110.5 BUN/Creatinine Ratio 17.9 (10-20) Glucose 100 H (70-99) mg/dl POC Glucose (70-99) Lactate 1.1 (0.4-2.0) mmol/L Calcium 7.9 L (8.5-10.1) mg/dl Total Bilirubin 1.9 H (0.2-1) mg/dl AST 43 H (15-37) U/L ALT 57 (12-78) U/L Alkaline Phosphatase 114 (45-117) U/L Ammonia (11-32) umol/L Troponin I < 0.015 (0-0.045) ng/ml Total Protein 6.0 L (6.4-8.2) gm/dl Albumin 3.3 L (3.4-5.0) gm/dl Globulin 2.7 (2.5-4.0) gm/dl Albumin/Globulin Ratio 1.2 (0.9-2) TSH 0.105 L (0.300-4.500) uIu/ml Free T4 1.14 (0.8-1.6) ng/dl 12/31/18 12/31/18 Range/Units 15:53 16:33 WBC (4.8-10.8) K/uL RBC (4.2-5.4) M/uL Hgb (12.0-16.0) g/dL Hct (37-47) % MCV (80-100) fL MCH (25-34) pg MCHC (32-36) g/dL RDW Std Deviation (36.4-46.3) fL RDW Coeff of Irina (11.5-14.5) % Plt Count (130-400) K/uL MPV (7.4-10.4) fL Immature Gran % (Auto) % Neut % (Auto) % Lymph % (Auto) % [place] % (Auto) % Eos % (Auto) % Baso % (Auto) % Immature Gran # (Auto) (0.00-0.02) K/uL Neut # (Auto) (1.4-6.5) K/uL Lymph # (Auto) (1.2-3.4) K/uL [place] # (Auto) (0.11-0.59) K/uL Eos # (Auto) (0-0.5) K/uL Baso # (Auto) (0-0.2) K/uL Platelet Estimate (Normal) Sodium (136-145) mmol/L Potassium (3.5-5.1) mmol/L Chloride (98-107) mmol/L Carbon Dioxide (21-32) mmol/L Anion Gap (3-11) BUN (7-18) mg/dl Creatinine (0.6-1.2) mg/dl Est Cr Clr Drug Dosing Est GFR ( Amer) Est GFR (Non-Af Amer) BUN/Creatinine Ratio (10-20) Glucose (70-99) mg/dl POC Glucose 106 H (70-99) Lactate (0.4-2.0) mmol/L Calcium (8.5-10.1) mg/dl Total Bilirubin (0.2-1) mg/dl AST (15-37) U/L ALT (12-78) U/L Alkaline Phosphatase (45-117) U/L Ammonia 134.1 H (11-32) umol/L Troponin I (0-0.045) ng/ml Total Protein (6.4-8.2) gm/dl Albumin (3.4-5.0) gm/dl Globulin (2.5-4.0) gm/dl Albumin/Globulin Ratio (0.9-2) TSH (0.300-4.500) uIu/ml Free T4 (0.8-1.6) ng/dl Imaging Data Radiologist's Impression: Radiology results as stated below per my review and the radiologist's interpretation: XR chest 1V portable HISTORY: weakness COMPARISON: Chest 12/23/2018. FINDINGS: There are low lung volumes. The heart remains mildly enlarged. No evidence for pulmonary edema. No pleural effusions. No pneumothorax. Right jugular Port-A-Cath terminates at the SVC. Postoperative changes seen within the proximal left humerus. IMPRESSION: Stable mild cardiomegaly. Otherwise, no acute process within the chest. Electronically signed by: Talon Cruz M.D. 12/31/2018 3:30 PM ECG Data Attestation: I personally reviewed and interpreted this ECG as follows: Indication: altered mental status Rate (beats per minute): 76 Rhythm: normal sinus Findings: + other (Poor baseline); no acute ischemic change and no ectopy Comparison ECG Date: from (12/22/2018) Change: no significant change Blood Pressure Blood Pressure Findings: Elevated blood pressure Blood Pressure Disposition: further management by hospitalist [facility] Narrative This patient comes in as described above. I do know her well from multiple previous visits. She tends to have an elevated ammonia and get altered with this. That apparently is what is going on today. Ammonia level yesterday was significant elevated her urinalysis also growing out 40,000 counts of gram- negative rods. So she could be septic as well. She is afebrile and has stable vital signs. We did access her port. I did order sepsis type blood work including blood cultures and lactic acid she was given a liter of fluids I did order ammonia level. Multiple blood testing was obtained. White count and lactic acid are not elevated. She did have a blood cultures obtained as well. Her urine culture from yesterday did grow out 40,000 gram-negative rods. In light of this, I did give her IV ertapenem. She could be uroseptic. I think most likely this is from her ammonia and this is typically how she presents. I do think she needs to be admitted/observe for altered mental status and elevated ammonia. I have consulted the [facility] hospitalist to see her in the ER for these measures. Impression & Plan Altered mental status, UTI (urinary tract infection), Increased ammonia level, 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, type 2, Weakness Discharge Plan Visit Data *Final* Discharge Date/Time: 12/31/18 21:26 Chief Complaint: Altered Mental Status Stated Complaint: JUST NOT WITH IT TODAY ED Provider: Jorden Doyle Discharge Problem: Altered mental status, UTI (urinary tract infection), Increased ammonia level, 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, type 2, Weakness Patient Disposition: Admitted As Inpatient Discharge Instructions Interventions: ED Discharge Assessment Last Done: 12/31/18 21:26 The scribe's documentation has been prepared under my direction and personally reviewed by me in its entirety. I confirm that the note above accurately reflects all work, treatment, procedures, and medical decision making performed by me.
--- NOTE | 2018-12-31 15:31 | XRay Report ---
XR chest 1V portable HISTORY: weakness COMPARISON: Chest 12/23/2018. FINDINGS: There are low lung volumes. The heart remains mildly enlarged. No evidence for pulmonary ed franklyn. No pleural effusions. No pneumothorax. Right jugular Port-A-Cath terminates at the SVC. Postoper ative changes seen within the proximal left humerus. IMPRESSION: Stable mild cardiomegaly. Otherwise, no acute process within the chest. Electronically signed by: Talon Cruz M.D. 12/31/2018 3:30 PM
[2018-12-31 16:12] LABS: Hemoglobin 10.6 g/dL (12.0-16.0); Mean Corpuscular Hemoglobin 37.2 pg (25-34); Mean Corpuscular Hgb Conc 36.6 g/dL (32-36); Mean Corpuscular Volume 101.8 fL (80-100); RDW Coefficient of Variation 13.5 % (11.5-14.5); RDW Standard Deviation 49.2 fL (36.4-46.3); Red Blood Count 2.85 M/uL (4.2-5.4); White Blood Count 3.61 K/uL (4.8-10.8)
[2018-12-31 16:28] LABS: Alanine Aminotransferase 57 U/L (12-78); Albumin Level 3.3 gm/dl (3.4-5.0); Aspartate Aminotransferase 43 U/L (15-37); BUN Creatinine Ratio 17.9 (10-20); Blood Urea Nitrogen 9 mg/dl (7-18); Calcium 7.9 mg/dl (8.5-10.1); Carbon Dioxide 20 mmol/L (21-32); Chloride 110 mmol/L (98-107); Est GFR (African American) 128.1; Est GFR (Non-African American) 110.5; Glucose 100 mg/dl (70-99); Potassium 3.7 mmol/L (3.5-5.1); Sodium 139 mmol/L (136-145)
[2018-12-31 16:38] LABS: Albumin Globulin Ratio 1.2 (0.9-2); Alkaline Phosphatase 114 U/L (45-117); Bilirubin,Total 1.9 mg/dl (0.2-1); Globulin 2.7 gm/dl (2.5-4.0); Thyroid Stimulating Hormone 0.105 uIu/ml (0.300-4.500); Troponin I < 0.015 ng/ml (0-0.045)
[2018-12-31 16:43] LABS: Basophils # (auto) 0.04 K/uL (0-0.2); Basophils % (auto) 1.1 %; Eosinophils # (auto) 0.26 K/uL (0-0.5); Eosinophils % (auto) 7.2 %; Lymphocytes # (auto) 1.28 K/uL (1.2-3.4); Lymphocytes % (auto) 35.5 %; Mean Platelet Volume 9.9 fL (7.4-10.4); Monocytes # (auto) 0.34 K/uL (0.11-0.59); Monocytes % (auto) 9.4 %; Neutrophils # (auto) 1.69 K/uL (1.4-6.5); Neutrophils % (auto) 46.8 %; Platelet Count 98 K/uL (130-400); Platelet Estimate Decreased (Normal)
[2018-12-31 16:51] LABS: T4 Free Thyroxine 1.14 ng/dl (0.8-1.6)
[2018-12-31] MEDS ORDERED: ERTAPENEM SODIUM 1,000 MG in SODIUM CHLORIDE 0.9% 50 ML IV STA (17:32)
--- NOTE | 2018-12-31 20:37 | History & Physical Report ---
Date of Service December 31, 2018 Assessment & Plan (1) Acute hepatic encephalopathy: Admits to PCU on telemetry for hepatic acute hepatic encephalopathy elevated ammonia level and urinary tract infection. Vital signs every 4 hours Monitor electrolytes closely and replenish as needed CBC CMP and ammonia level daily Lactulose 20 mg p.o. syrup 3 times a day SCDs and teds for DVT prophylaxis Hepatic diet Personnel Monitor consult placed CT of the head without contrast pending for hepatic encephalopathy Neurochecks every 4 hours for 24 hours then stop a full normal. Full code Present on Admission?: Yes (2) Hyperammonemia: As above Present on Admission?: Yes (3) Myelodysplastic syndrome: Platelets are 98, stable continue monitoring CBC daily. Present on Admission?: Yes (4) UTI (urinary tract infection): Urine culture pending follow-up specificity and sensitivity. Ertapenem started in the ER for gram-negative bacilli most probably Proteus mirabilis and Providencia stuartii that were present in her previous culture and they were both sensitive to ertapenem. Present on Admission?: Yes (5) GERD (gastroesophageal reflux disease): Continue home dose of continue omeprazole 40 mg p.o. every morning and ranitidine 300 mg p.o. nightly Present on Admission?: Yes (6) Seizure disorder: Continue Trileptal 600 mg p.o. twice daily, topiramate 100 mg p.o.twice daily Keppra 1,500 mg p.o. twice daily Present on Admission?: Yes (7) 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 type 2 in nonobese: Glycemic control per pharmacy. Present on Admission?: Yes History of Present Illness Chief Complaint: Hepatic encephalopathy, elevated ammonia level, urinary tract infection Primary Care Provider: Balaji aZragoza DO Patient is a 53 years old female with past medical history significant for allergy to significant number of antibiotics including reaction of rash and hives,Hives myelodysplastic syndrome, pancytopenia, blepharitis of both eyes, portal hypertension, parkinsonism, nonalcoholic fatty liver, gastroparesis, chronic liver disease and cirrhosis, GERD, hypothyroidism, seizure disorder who was brought by her to the emergency room who stated that patient has been nonverbal. She refused food yesterday. Her denies any new medication but believes that patient may may have been on Macrobid.. He does not know how long insulin. Patient was recently admitted to the hospital last week for confusion and high ammonia level. Patient is incontinent for urine and bowel overnight per her . He also stated that she has been coughing for 2 months and that EGD was done 3 days ago. Labs are reviewed: Which shows sodium of 139, potassium 3.7 BUN of 9 creatinine 0.5 ammonia level yesterday was 164 today 134, troponin 0 0.015, albumin 3.3 TSH 0.105 free T4 1.1. Urine is cloudy with +2+ leukocyte esterase, high white blood cell 10-30, nitrates negative and the urine bacteria negative. Chest x-ray shows stable cardiomegaly no acute process within the chest. Made to admit patient for observation to PCU on telemetry for further evaluation of urinary tract infection and IV antibiotics, hepatic encephalopathy and to trend down elevated ammonia level. Allergies Allergy/AdvReac Type Severity Reaction Status Date / Time metronidazole Allergy Severe SEIZURE Verified 12/31/18 15:34 tramadol Allergy Severe SEIZURES Verified 12/31/18 15:34 amoxicillin Allergy Intermediate HIVES; Has Verified 12/31/18 15:34 tolerated cephalosporins (Rocephin, Ceftin,Keflex baclofen Allergy Intermediate RASH Verified 12/31/18 15:34 butalbital Allergy Intermediate HIVES Verified 12/31/18 15:34 cat dander Allergy Intermediate Hives Verified 12/31/18 15:34 ceftriaxone [From Rocephin] Allergy Intermediate Hives Verified 12/31/18 15:34 clarithromycin Allergy Intermediate RASH Verified 12/31/18 15:34 clavulanic acid Allergy Intermediate Diarrhea Verified 12/31/18 15:34 dicyclomine Allergy Intermediate HIVES Verified 12/31/18 15:34 dog dander Allergy Intermediate Hives Verified 12/31/18 15:34 horse dander Allergy Intermediate Hives Verified 12/31/18 15:34 mivacurium Allergy Intermediate HIVES Verified 12/31/18 15:34 Penicillins Allergy Intermediate RASH; has Verified 12/31/18 15:34 tolerated cephs (Rocephin, Keflex, Ceftin) pollen extracts Allergy Intermediate Hives Verified 12/31/18 15:34 Tetracyclines Allergy Intermediate DOXYCYCLINE Verified 12/31/18 15:34 -HIVES adhesive Allergy Mild RASH, Verified 12/31/18 15:34 DUODERM=RED,ITCHY grape Allergy Mild Nausea Verified 12/31/18 15:34 sulindac Allergy Mild ALLERGY Verified 12/31/18 15:34 LISTED "CLONDORAL"--HIVES Cephalosporins AdvReac Severe TURNS Verified 12/31/18 15:34 STOOL VERY DARK furosemide AdvReac Severe HIVES Verified 12/31/18 15:34 metoclopramide AdvReac Severe SEIZURES Verified 12/31/18 15:34 cefdinir AdvReac Intermediate Diarrhea Verified 12/31/18 15:34 blueberry AdvReac Mild STOMACH Verified 12/31/18 15:34 PAIN celecoxib AdvReac Mild HIVES Verified 12/31/18 15:34 Home Medications Home Medications Medication Instructions Recorded Confirmed Type levothyroxine 75 mcg PO QAM 12/26/17 12/31/18 History multivitamin [Multiple Vitamins] 1 tab PO QDL 12/26/17 12/31/18 History spironolactone 50 mg PO QAM 12/26/17 12/31/18 History lactulose 40 ml PO QAM 01/18/18 12/31/18 History rifaximin 550 mg PO BID 01/18/18 12/31/18 History omeprazole 40 mg PO QAM 03/13/18 12/31/18 History ranitidine HCl 300 mg PO HS 03/13/18 12/31/18 History ibuprofen 200 - 400 mg PO DAILY PRN 08/07/18 12/31/18 History oxcarbazepine [Trileptal] 600 mg PO BID 08/12/18 12/31/18 History levetiracetam 1,500 mg PO BID 09/12/18 12/31/18 History Probiotic 0 mmu cells PO QDL 09/20/18 12/31/18 History cholecalciferol (vitamin D3) 1,000 unit PO QDL 09/20/18 12/31/18 History [Vitamin D3] vitamin A 8,000 unit PO QDL 09/20/18 12/31/18 History vitamin B complex 1 tab PO QDL 09/20/18 12/31/18 History Menthol Drops 0 mg PO UD PRN 10/03/18 12/31/18 History albuterol sulfate 2 puffs INH 6XD PRN #8 gm 10/21/18 12/31/18 Rx polyethylene glycol 3350 [Miralax] 17 g PO QAM 10/27/18 12/31/18 History promethazine 25 mg PO Q6H PRN #12 tab 10/27/18 12/31/18 Rx Novolog Flexpen U-100 Insulin See Rx Instructions SQ .COMPLEX #1 11/17/18 12/31/18 Rx aspart 100 unit/mL (3 mL) box NS subcutaneous lecithin 1,200 mg capsule 1,200 mg PO DAILY 11/17/18 12/31/18 History ondansetron HCl 4 mg tablet 4 - 8 mg PO UD PRN tab 11/26/18 12/31/18 History topiramate 100 mg tablet 100 mg PO BID #60 tab 12/04/18 12/31/18 Rx Refresh Tears 1 drp OPHTHALMIC (EYE) BID PRN 12/22/18 12/31/18 History ibuprofen-diphenhydramine cit 1 cap PO HS PRN 12/22/18 12/31/18 History [Ibuprofen PM] Tresiba FlexTouch U-100 15 unit SUBCUT QAM #0 ml 12/24/18 12/31/18 Rx prochlorperazine maleate 10 mg 10 mg PO BID PRN 30 Days #12 tab 12/25/18 12/31/18 Rx tablet tizanidine 4 mg capsule 4 mg PO Q8H PRN 30 Days #12 cap 12/25/18 12/31/18 Rx Past Med/Surg History Medical History GERD (gastroesophageal reflux disease) CONTROLLED 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, type 2 IDDM Hypothyroidism Asthma STABLE Seizure disorder (05/26/11) + PSEUDOSEIZURES Cirrhosis NON-ALCOHOLIC FATTY LIVER DISEASE Hyperammonemia (Inactive) Abnormal finding on mammography Depression Dysphagia Hepatic encephalopathy HX; ON LACTULOSE/XIFAXAN Hx of migraines Myoclonic seizure "FREQUENT MYOCLONIC SEIZURES" FOLLOWS WITH DR. YANG Pancytopenia CHRONIC Surgical History History of cholecystectomy History of hysterectomy History of tonsillectomy History of kyphoplasty History of appendectomy History of ankle surgery B/L History of colonoscopy History of esophagogastroduodenoscopy (EGD) History of surgery on arm LEFT History of tooth extraction Hx of carpal tunnel repair B/L Hx of cataract extraction B/L S/P laminectomy lumbar spine S/P nasal surgery nasal bone fracture repair Family History Other Adopted No pertinent family history Social History Preferred Language: Greek Communication Ability: Effective Visual Impairment: No 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 Beliefs That Will Affect Care: None marital status: Current Living Situation: Spouse Current Living Situation Comment: Lives with in apartment current occupational status: unemployed and disabled Feels Safe at Home: Yes Smoking Status: Never smoker Second Hand Exposure: No ; Hx Alcohol Use: Yes Alcohol type: hard liquor Hx Substance Use: No Seatbelt Use: always Review of Systems Review of Systems: All systems reviewed & are unremarkable except as noted in HPI & below Physical Exam Constitutional: WD/WN, vitals as above well developed and + obese Eyes: Blepharitis bilaterally ENMT: external ear and nose normal, oropharynx normal Neck: trachea midline, no thyromegaly Respiratory: normal respiratory effort, lungs clear to auscultation Gastrointestinal (Abdomen): normal bowel sounds, soft, nontender, no hepatosplenomegaly Enlarged liver 5 cm before CVA Musculoskeletal: no cyanosis or clubbing, extremities motor strength 5/5 Skin: no rashes, warm and dry Neurologic: patellar DTR's 2+ bilat, sensation intact Psychiatric: Insight: + limited insight Judgement: + poor judgement Patient appears to be disoriented and unable to respond properly to questions. She is alert. She is not sleepy. She is poor historian. Lymphatic: no cervical or axillary lymphadenopathy Results & Data Vital Signs (Past 12 Hours) Vital Signs Temp Pulse Resp BP Pulse Ox 12/31/18 20:00 75 20 138/69 100 12/31/18 19:31 82 23 170/85 H 100 12/31/18 19:00 80 20 144/74 H 98 12/31/18 18:31 81 19 138/52 L 100 12/31/18 18:01 78 18 149/76 H 100 12/31/18 18:00 79 19 12/31/18 17:30 82 20 156/86 H 100 12/31/18 16:41 78 18 152/68 H 100 12/31/18 14:45 36.8 C 82 20 164/106 H 100 Code Status & VTE Plan Code Status Full code VTE Prophylaxis Plan VTE Prophylaxis will be ordered: No PG Care Time/CCT Total # of Minutes Spent Total Time Spent with Patient: Total time spent is greater than 50% in coordination of care (as documented) at patient's floor/unit and/or counseling patient: (1) GERD (gastroesophageal reflux disease) Esophagitis presence: esophagitis presence not specified Qualified Code(s): K21.9 - Gastro-esophageal reflux disease without esophagitis
[2018-12-31] MEDS ORDERED: MENTHOL PO PRN (21:47)
[2018-12-31] MEDS ORDERED: IBUPROFEN 200 MG TAB PO PRN (21:47)
[2018-12-31] MEDS ORDERED: POLYETHYLENE (MIRALAX) 17 GM PACK PO PRN (21:47)
[2018-12-31] MEDS ORDERED: TIZANIDINE HCL 4 MG TABLET PO PRN (21:47)
[2018-12-31] MEDS ORDERED: EUCALYPTUS OIL PO PRN (21:47)
[2018-12-31] MEDS ORDERED: PROCHLORPERAZINE MALEATE 10 MG TAB PO PRN (21:47)
[2018-12-31] MEDS ORDERED: ALBUTEROL HFA 8 GM INHALER INH PRN (21:47)
[2018-12-31] MEDS ORDERED: PHARMACY GLYCEMIC MGMT CONSULT PRN (22:09)
[2018-12-31] MEDS ORDERED: GLUCOSE 40% GEL 15 GM TUBE PO PRN (22:15)
[2018-12-31] MEDS ORDERED: CARBOHYDRATES FOR HYPOGLYCEMIA PO PRN (22:15)
[2018-12-31] MEDS ORDERED: DEXTROSE 50% 50 ML SYRINGE IV PRN (22:15)
[2018-12-31] MEDS ORDERED: GLUCAGON FOR INJ 1 MG VIAL IM PRN (22:15)
[2018-12-31] MEDS ORDERED: GLUCOSE 10 TABS/TUBE PO PRN (22:15)
--- NOTE | 2018-12-31 23:04 | CT Scan Report ---
CT head/brain wo con CLINICAL HISTORY: Hepatic encephalopathy CHANGE IN MENTAL STATUS COMPARISON STUDY: 06/16/2018 TECHNIQUE: Axial CT of the brain is performed from the vertex to the skull base. IV contrast was not administered for this examination. A dose lowering technique was utilized adhering to the principles of ALARA. CT DOSE: 614.27 mGy.cm FINDINGS: No intra or extra-axial mass lesions are visualized. There is no CT evidence of acute cortical infarc tion. There is no evidence of midline shift. There is no acute hemorrhage. No calvarial fractures ar e visualized. There are minimal white matter hypodensities likely on a small vessel basis. There is no evidence of pathologic ventricular dilatation. There is no evidence of acute sinusitis IMPRESSION: No acute intracranial findings Electronically signed by: Bran Hernandez M.D. 12/31/2018 11:03 PM
[2018-12-31] MEDS: RIFAXIMIN 550 MG TABLET PO SCH (23:13)
[2018-12-31] MEDS: OXcarbazepine 150 MG TABLET PO SCH (23:13)
[2018-12-31] MEDS: levETIRAcetam 500 MG TAB PO SCH (23:13)
[2018-12-31] MEDS: TOPIRAMATE 100 MG TAB PO SCH (23:14)
[2018-12-31] MEDS: LACTULOSE SYRUP 20 GM/30 ML UDC PO SCH (23:16)
[2019-01-01] MEDS: INSULIN ASPART 100 UNITS/ML 3 ML PEN SQ SCH ×5 (00:06→21:52)
[2019-01-01] MEDS: LEVOTHYROXINE SODIUM 75 MCG TABLET PO SCH (06:41)
[2019-01-01 07:27] LABS: Hematocrit (blood only) 26.1 % (37-47); Hemoglobin 9.6 g/dL (12.0-16.0); Mean Corpuscular Hemoglobin 37.9 pg (25-34); Mean Corpuscular Hgb Conc 36.8 g/dL (32-36); Mean Corpuscular Volume 103.2 fL (80-100); RDW Coefficient of Variation 13.8 % (11.5-14.5); RDW Standard Deviation 51.4 fL (36.4-46.3); Red Blood Count 2.53 M/uL (4.2-5.4); White Blood Count 3.53 K/uL (4.8-10.8)
[2019-01-01 07:37] LABS: Mean Platelet Volume 9.4 fL (7.4-10.4); Platelet Count 78 K/uL (130-400)
[2019-01-01 07:55] LABS: Basophils # (auto) 0.04 K/uL (0-0.2); Basophils % (auto) 1.1 %; Eosinophils # (auto) 0.18 K/uL (0-0.5); Eosinophils % (auto) 5.1 %; Monocytes # (auto) 0.33 K/uL (0.11-0.59); Monocytes % (auto) 9.3 %; Neutrophils # (auto) 1.78 K/uL (1.4-6.5); Neutrophils % (auto) 50.5 %; Ovalocytes 1+
[2019-01-01 07:56] LABS: Albumin Level 3.1 gm/dl (3.4-5.0); BUN Creatinine Ratio 15.8 (10-20); Calcium 8.2 mg/dl (8.5-10.1); Creatinine Clr Calc Pharmacy 139.9 ml/min; Est GFR (African American) 127.2; Est GFR (Non-African American) 109.8; Potassium 3.5 mmol/L (3.5-5.1)
[2019-01-01 07:59] LABS: Albumin Globulin Ratio 1.3 (0.9-2); Bilirubin,Total 1.9 mg/dl (0.2-1); Globulin 2.4 gm/dl (2.5-4.0); Total Protein 5.5 gm/dl (6.4-8.2)
[2019-01-01 08:09] LABS: Estimated Average Glucose 82 mg/dl; Hemoglobin A1C 4.5 % (4.5-5.6)
[2019-01-01] MEDS ORDERED: INSULIN DEGLUDEC 15 UNIT SQ SCH (09:00)
[2019-01-01] MEDS ORDERED: NON-FORMULARY MEDICATION (Lecithin 1,200 MG) PO SCH (09:00)
[2019-01-01] MEDS: LACTULOSE SYRUP 20 GM/30 ML UDC PO SCH ×2 (09:13→13:16)
[2019-01-01] MEDS: PANTOprazole 40 MG TAB PO SCH (09:13)
[2019-01-01] MEDS: levETIRAcetam 500 MG TAB PO SCH (09:13)
[2019-01-01] MEDS: SPIRONOLACTONE 25 MG TAB PO SCH (09:13)
[2019-01-01] MEDS: RIFAXIMIN 550 MG TABLET PO SCH (09:14)
[2019-01-01] MEDS: OXcarbazepine 150 MG TABLET PO SCH (09:14)
[2019-01-01] MEDS: TOPIRAMATE 100 MG TAB PO SCH (09:14)
[2019-01-01] MEDS ORDERED: ARTIFICIAL TEARS OP PRN (09:54)
[2019-01-01 10:40] LABS: Appearance Urine Clear (Clear); Bacteria Urine Automated Negative (Negative); Bilirubin Urine Negative (Negative); Blood Urine Negative (Negative); Color Urine Yellow; Glucose Urine UA Negative (Negative); Ketones Urine Negative (Negative); Leukocyte Esterase Urine 3+ (Negative); Nitrite Urine Negative (Negative); Protein Urine Negative (Negative); Specific Gravity Urine 1.014 (1.000-1.030); Urobilinogen Urine Positive (Negative)
[2019-01-01] MEDS ORDERED: VITAMIN B COMPLEX TAB PO SCH (11:30)
[2019-01-01] MEDS ORDERED: CHOLECALCIFEROL 1,000 UNITS TAB PO SCH (11:30)
[2019-01-01] MEDS ORDERED: LACTOBACILLUS COMBINATION NO 4 PO SCH (11:30)
[2019-01-01] MEDS: MULTIVITAMIN TAB PO SCH (11:51)
[2019-01-01] MEDS: INSULIN DEGLUDEC 100 UNIT/ML SQ SCH (13:16)
--- NOTE | 2019-01-01 13:34 | Hospitalist Progress Note ---
Date of Service January 01, 2019 Assessment & Plan (1) Acute hepatic encephalopathy: Likely due to missing doses of her lactulose. It was skipped on Friday for the EGD and again on Friday due to driving to [place]. However, her reports that she has been having good stool output. - Returned to baseline mental status now that she has restarted her lactulose - Continue rifaxamin - Discussed with Dr. Johns - No indication for attempting other therapies such as clonidine or sodium benzoate. These have been tried in the past and cost is a prohibitive factor and he feels that compliance will be the best with simple regimen. (2) UTI (urinary tract infection): UA indicated UTI and urine culture growing pino-sensitive Proteus mirabilis. Not clear if this is a true UTI vs. asymptomatic bacteruria; however, given her improvement after abx, will treat with a short course. - Cipro x 3 days (3) Hyperammonemia: As above (4) 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 type 2 in nonobese: A1c was 4.5% last check. - Continue home insulins - Glycemic control per pharmacy. (5) Myelodysplastic syndrome: Platelets are 78 today. Similar to prior range. - Monitor (6) Seizure disorder: No seizure activity inpatient. - Continue Trileptal 600 mg p.o. twice daily, topiramate 100 mg p.o.twice daily Keppra 1,500 mg p.o. twice daily (7) GERD (gastroesophageal reflux disease): Continue home dose of continue omeprazole 40 mg p.o. every morning and ranitidine 300 mg p.o. nightly (8) DVT prophylaxis: SCDs - Short admission hopefully Subjective More lucid and awake today. Responds. Is refusing our hospital medications and wants her own home dosing. Review of Systems Review of Systems: All systems reviewed & are unremarkable except as noted in HPI & below Physical Exam Constitutional: + ill appearing, + obese and + in distress Eyes: EOM intact bilaterally; no conjunctival abnormality ENMT: external ear and nose normal, oropharynx normal Neck: trachea midline, no thyromegaly normal visual inspection Respiratory: normal respiratory effort, lungs clear to auscultation no respiratory distress Cardiovascular: RRR, no murmur, no edema Gastrointestinal (Abdomen): Inspection/Auscultation: abdomen normal to inspection; abdomen not distended Musculoskeletal: no cyanosis or clubbing, extremities motor strength 5/5 Skin: no rashes, warm and dry Neurologic: moves all extremities and awake Psychiatric: Orientation: alert, oriented to person and cooperative Results & Data Vital Signs (Past 12 Hours) Vital Signs Temp Pulse Pulse Resp BP BP Pulse Ox 01/01/19 08:00 73 01/01/19 07:43 36.9 C 73 24 139/74 100 01/01/19 04:21 36.8 C 70 18 151/66 H 99 PG Care Time/CCT Total # of Minutes Spent Total Time Spent with Patient: Total time spent is greater than 50% in coordination of care (as documented) at patient's floor/unit and/or counseling patient: (1) UTI (urinary tract infection) Hematuria presence: without hematuria Urinary tract infection type: acute cystitis Qualified Code(s): N30.00 - Acute cystitis without hematuria (2) GERD (gastroesophageal reflux disease) Esophagitis presence: esophagitis presence not specified Qualified Code(s): K21.9 - Gastro-esophageal reflux disease without esophagitis
--- NOTE | 2019-01-01 14:33 | Pharmacy Report ---
Glycemic Control Consultation - Date of Service January 01, 2019 - Scope Scope: Glycemic Pharmacist consulted by Dr Zuluaga on 12/31/18 for glycemic control and to write orders per [facility] inpatient glycemic control protocol - Objective Weight: 88.2 kg Accuchecks BSG (last 24hrs): 12/31/18 12/31/18 12/31/18 15:48 15:53 22:37 Glucose 100 H POC Glucose 106 H 87 01/01/19 01/01/19 01/01/19 07:06 07:50 11:42 Glucose 82 POC Glucose 90 108 H Laboratory Data (last 24hrs): 12/31/18 01/01/19 15:48 07:06 Potassium 3.7 3.5 Carbon Dioxide 20 L 19 L Anion Gap 9.0 9.0 Creatinine 0.50 L 0.51 L Est Cr Clr Drug Dosing Not Reportable 139.9 HbA1c: Hemoglobin A1c 4.5 % (4.5-5.6) 01/01/19 07:06 - Recent Pertinent Medications Outpatient Anti-diabetic Regimen: * Tresiba 15 units qAM, HS dose is determined by BSG/diet (per anywhere from 0-15 units depending on BSG and diet that day) * Novolog 5 units with lunch and dinner (these doses are not always utilized) * A1c = 4.5 % (01/01/19) * Per Melody Wongor's note on 11/18/18 - average daily glucose should be used for treatment decisions. A1c does not correlate with glucose. Risk Factors for Insulin Resistance: * Infection: Cipro for treatment of UTI - Assessment & Plan Assessment & Plan: ASSESSMENT: * DE is a 53 year old female admitted to [facility] for acute hepatic encephalopathy * Patient initially started on ertapenem and converted to ciprofloxacin for treatment of UTI * Per interview with patient and : Patient's last dose of Tresiba was either the morning or evening of 12/30, but no insulin was given on 12/31 at [facility]. The patient takes Tresiba 15 units daily in the morning regardless of BSG. HS Tresiba is given only if needed ( cited that if BSG was above 150 mg/dL, then she would receive another 15 units). * BSGs over past 24 hours ranging 87-108 mg/dL * Will be more conservative with initial dosing based on low BSGs * Patient did not receive any insulin yesterday (either at home or inpatient) * She would prefer to receive her own insulin (will use patient's own Tresiba) PLAN FOR INPATIENT GLYCEMIC CONTROL: * Will hold outpatient insulin regimen and manage based on BSGs * Basal insulin - patient's own Tresiba * Tresiba 10 units given today at 1300 and will continue ongoing qam * Tresiba scale for HS in case initial dose was inadequate * -If BSG 120 mg/dL or below - 0 units * -If BSG 121-179 mg/dL - 7 units * -If BSG 180 mg/dL or above - 15 units * Bolus insulin * NovoLog per scale ACHS or Q6hrs while NPO * Goal Range: Low 110 mg/dL - High 140 mg/dL * Correction Factor: 25 mg/dL/unit * Nutritional / Prandial insulin per carb ratio of 1 unit per 9 grams CHO consumed * CF and CR based on estimated basal need of approximately 30 units * Will also add overnight check tonight at 0200 * Please note that the plan above was derived based on current level of insulin resistance and hospital stress. These recommendations are appropriate for inpatient admission only. Plan of care upon discharge will need to be reassessed to avoid potential outpatient hypo/hyperglycemia. Thank you.
[2019-01-01] MEDS: RIFAXIMIN 550 MG PO SCH ×2 (16:06→21:19)
[2019-01-01] MEDS: TOPIRAMATE 100 MG PO SCH ×2 (16:06→21:15)
[2019-01-01] MEDS: OXCARBAZEPINE 600 MG PO SCH ×2 (16:06→21:14)
[2019-01-01] MEDS: KEPPRA 750 MG PO SCH ×2 (16:07→21:13)
[2019-01-01] MEDS ORDERED: ERTAPENEM SODIUM 1,000 MG in SODIUM CHLORIDE 0.9% 50 ML IV SCH (18:00)
[2019-01-01] MEDS ORDERED: ONDANSETRON INJ 2 MG/ML 2 ML VIAL IV PRN (18:52)
[2019-01-01] MEDS ORDERED: CIPROFLOXACIN 500 MG TAB PO SCH (21:00)
[2019-01-01] MEDS ORDERED: INSULIN DEGLUDEC 100 UNIT/ML SQ SCH (21:00)
[2019-01-01] MEDS: LACTULOSE 20 GM/30 ML PO SCH (21:13)
[2019-01-01] MEDS: SULFAMETHOXAZOLE/TRIMETHOPRIM DS 800/160MG TAB PO SCH (21:16)
[2019-01-02] MEDS ORDERED: INSULIN ASPART 100 UNITS/ML 3 ML PEN SQ SCH (02:00)
[2019-01-02] MEDS ORDERED: Nursing to Pharmacy Communication ONE ×3 (05:35→11:30)
[2019-01-02] MEDS: LEVOTHYROXINE SODIUM 75 MCG TABLET PO SCH (05:49)
[2019-01-02 06:19] LABS: Hematocrit (blood only) 27.7 % (37-47); Hemoglobin 10.4 g/dL (12.0-16.0); Mean Corpuscular Hemoglobin 38.2 pg (25-34); Mean Corpuscular Hgb Conc 37.5 g/dL (32-36); Mean Corpuscular Volume 101.8 fL (80-100); RDW Coefficient of Variation 13.8 % (11.5-14.5); RDW Standard Deviation 51.2 fL (36.4-46.3); Red Blood Count 2.72 M/uL (4.2-5.4); White Blood Count 3.25 K/uL (4.8-10.8)
[2019-01-02 06:20] LABS: Mean Platelet Volume 9.4 fL (7.4-10.4); Platelet Count 87 K/uL (130-400)
[2019-01-02 06:35] LABS: Albumin Level 3.1 gm/dl (3.4-5.0); BUN Creatinine Ratio 17.8 (10-20); Calcium 7.8 mg/dl (8.5-10.1); Creatinine Clr Calc Pharmacy 129.7 ml/min; Est GFR (African American) 124.1; Est GFR (Non-African American) 107.1; Potassium 3.7 mmol/L (3.5-5.1)
[2019-01-02 06:38] LABS: Albumin Globulin Ratio 1.1 (0.9-2); Bilirubin,Total 2.1 mg/dl (0.2-1); Globulin 2.8 gm/dl (2.5-4.0); Total Protein 5.9 gm/dl (6.4-8.2)
[2019-01-02 06:40] LABS: Basophils # (auto) 0.05 K/uL (0-0.2); Basophils % (auto) 1.5 %; Eosinophils % (auto) 6.2 %; Monocytes # (auto) 0.25 K/uL (0.11-0.59); Monocytes % (auto) 7.7 %; Neutrophils # (auto) 1.45 K/uL (1.4-6.5); Neutrophils % (auto) 44.6 %
[2019-01-02] MEDS: INSULIN ASPART 100 UNITS/ML 3 ML PEN SQ SCH ×2 (08:49→13:07)
[2019-01-02] MEDS: LACTULOSE 20 GM/30 ML PO SCH ×2 (08:50→13:14)
[2019-01-02] MEDS: OXCARBAZEPINE 600 MG PO SCH (08:51)
[2019-01-02] MEDS: KEPPRA 750 MG PO SCH (08:52)
[2019-01-02] MEDS: RIFAXIMIN 550 MG PO SCH (08:53)
[2019-01-02] MEDS: TOPIRAMATE 100 MG PO SCH (08:53)
[2019-01-02] MEDS: SULFAMETHOXAZOLE/TRIMETHOPRIM DS 800/160MG TAB PO SCH (08:54)
[2019-01-02] MEDS: PANTOprazole 40 MG TAB PO SCH (08:54)
[2019-01-02] MEDS: SPIRONOLACTONE 25 MG TAB PO SCH (08:55)
[2019-01-02] MEDS: INSULIN DEGLUDEC 100 UNIT/ML SQ SCH (08:56)
[2019-01-02] MEDS ORDERED: CALCIUM GLUCONATE 10% 1,000 MG in SODIUM CHLORIDE 0.9% 50 ML IV STA (09:25)
[2019-01-02] MEDS ORDERED: ALBUTEROL 0.083% NEBU SOLN 3 ML VIAL NEB STA (09:56)
--- NOTE | 2019-01-02 10:18 | Pharmacy Report ---
Pharmacy Glycemic Short Note 2 - Date of Service January 02, 2019 - Glycemic Short BSG Results (Last 24 hours): 01/01/19 01/01/19 01/01/19 11:42 16:36 20:00 Glucose POC Glucose 108 H 111 H 118 H 01/02/19 01/02/19 01/02/19 01:56 05:37 07:54 Glucose 94 POC Glucose 118 H 94 ASSESSMENT: * Pt known to pharmacy from previous admissions/glycemic consults * Pt is currently ordered her outpatient, non-formulary basal insulin of Tresiba. Dosing c/w outpatient dosing but reduced for below goal range BSGs and low PO intake * Pt takes Tresiba BID based on BSG scale at home - HS dose not needed last night. Will hold HS Tresiba until BSGs consistently > 140 mg/dl * No changes needed to bolus insulin - c/w previous admission dosing. PLAN FOR INPATIENT GLYCEMIC CONTROL: * Basal insulin * Tresiba 10 units SQ AM units SQ AM * Bolus insulin * NovoLog per scale ACHS or Q6hrs while NPO * Goal Range: Low 110 mg/dL - High 140 mg/dL * Correction Factor: 25 mg/dL/unit * Nutritional / Prandial insulin per carb ratio of 1 unit per 9 grams CHO consumed
[2019-01-02] MEDS: MULTIVITAMIN TAB PO SCH (11:10)
[2019-01-02] MEDS: HEPARIN 100 UNIT/ML 5ML FLUSH FLUSH PRN ×2 (11:10→14:06)
[2019-01-02] MEDS ORDERED: SULFAMETHOXAZOLE/TRIMETHOPRIM DS 800/160MG TAB PO SCH (11:45)
--- NOTE | 2019-01-02 17:18 | Discharge Summary ---
Date of Service January 02, 2019 Admission HPI Per Admitting Provider Patient is a 53 years old female with past medical history significant for allergy to significant number of antibiotics including reaction of rash and hives,Hives myelodysplastic syndrome, pancytopenia, blepharitis of both eyes, portal hypertension, parkinsonism, nonalcoholic fatty liver, gastroparesis, chronic liver disease and cirrhosis, GERD, hypothyroidism, seizure disorder who was brought by her to the emergency room who stated that patient has been nonverbal. She refused food yesterday. Her denies any new medication but believes that patient may may have been on Macrobid.. He does not know how long insulin. Patient was recently admitted to the hospital last week for confusion and high ammonia level. Patient is incontinent for urine and bowel overnight per her . He also stated that she has been coughing for 2 months and that EGD was done 3 days ago. Labs are reviewed: Which shows sodium of 139, potassium 3.7 BUN of 9 creatinine 0.5 ammonia level yesterday was 164 today 134, troponin 0 0.015, albumin 3.3 TSH 0.105 free T4 1.1. Urine is cloudy with +2+ leukocyte esterase, high white blood cell 10-30, nitrates negative and the urine bacteria negative. Chest x-ray shows stable cardiomegaly no acute process within the chest. Made to admit patient for observation to PCU on telemetry for further evaluation of urinary tract infection and IV antibiotics, hepatic encephalopathy and to trend down elevated ammonia level. Principal Diagnosis Hepatic encephalopathy Discharge Exam Constitutional + ill appearing, + obese and + in distress Eyes EOM intact bilaterally; no conjunctival abnormality ENMT external ear and nose normal, oropharynx normal Neck trachea midline, no thyromegaly normal visual inspection Respiratory normal respiratory effort, lungs clear to auscultation no respiratory distress Cardiovascular RRR, no murmur, no edema Gastrointestinal (Abdomen) Inspection/Auscultation: abdomen normal to inspection; abdomen not distended Musculoskeletal no cyanosis or clubbing, extremities motor strength 5/5 Skin no rashes, warm and dry Neurologic moves all extremities and awake Psychiatric Orientation: alert, oriented to person and cooperative Discharge Data Allergies Allergy/AdvReac Type Severity Reaction Status Date / Time metronidazole Allergy Severe SEIZURE Verified 12/31/18 15:34 tramadol Allergy Severe SEIZURES Verified 12/31/18 15:34 amoxicillin Allergy Intermediate HIVES; Has Verified 12/31/18 15:34 tolerated cephalosporins (Rocephin, Ceftin,Keflex baclofen Allergy Intermediate RASH Verified 12/31/18 15:34 butalbital Allergy Intermediate HIVES Verified 12/31/18 15:34 cat dander Allergy Intermediate Hives Verified 12/31/18 15:34 ceftriaxone [From Rocephin] Allergy Intermediate Hives Verified 12/31/18 15:34 clarithromycin Allergy Intermediate RASH Verified 12/31/18 15:34 clavulanic acid Allergy Intermediate Diarrhea Verified 12/31/18 15:34 dicyclomine Allergy Intermediate HIVES Verified 12/31/18 15:34 dog dander Allergy Intermediate Hives Verified 12/31/18 15:34 horse dander Allergy Intermediate Hives Verified 12/31/18 15:34 mivacurium Allergy Intermediate HIVES Verified 12/31/18 15:34 Penicillins Allergy Intermediate RASH; has Verified 12/31/18 15:34 tolerated cephs (Rocephin, Keflex, Ceftin) pollen extracts Allergy Intermediate Hives Verified 12/31/18 15:34 Tetracyclines Allergy Intermediate DOXYCYCLINE Verified 12/31/18 15:34 -HIVES adhesive Allergy Mild RASH, Verified 12/31/18 15:34 DUODERM=RED,ITCHY grape Allergy Mild Nausea Verified 12/31/18 15:34 sulindac Allergy Mild ALLERGY Verified 12/31/18 15:34 LISTED "CLONDORAL"--HIVES Cephalosporins AdvReac Severe TURNS Verified 12/31/18 15:34 STOOL VERY DARK furosemide AdvReac Severe HIVES Verified 12/31/18 15:34 metoclopramide AdvReac Severe SEIZURES Verified 12/31/18 15:34 cefdinir AdvReac Intermediate Diarrhea Verified 12/31/18 15:34 blueberry AdvReac Mild STOMACH Verified 12/31/18 15:34 PAIN celecoxib AdvReac Mild HIVES Verified 12/31/18 15:34 Consultations 12/31/18 17:23 ED Decision to Admit Stat Ordered Studies 12/31/18 21:47 CT head/brain wo con Stat Hospital Course (1) Acute hepatic encephalopathy: Likely due to missing doses of her lactulose. It was skipped on Friday for the EGD and again on Friday due to driving to [place]. However, her reports that she has been having good stool output. - Returned to baseline mental status now that she has restarted her lactulose - Continue rifaxamin - Discussed with Dr. Johns - No indication for attempting other therapies such as clonidine or sodium benzoate. These have been tried in the past and cost is a prohibitive factor and he feels that compliance will be the best with simple regimen. - Normal mentation after restarting her lactulose (2) UTI (urinary tract infection): UA indicated UTI and urine culture growing pino-sensitive Proteus mirabilis. Not clear if this is a true UTI vs. asymptomatic bacteruria; however, given her improvement after abx, will treat with a short course. - Started on ertapenem, then Bactrim x 3 days (3) Hyperammonemia: As above (4) 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 type 2 in nonobese: A1c was 4.5% last check. - Continued home insulins (5) Myelodysplastic syndrome: Platelets are 78 today. Similar to prior range. - Monitor (6) Seizure disorder: No seizure activity inpatient. - Continue Trileptal 600 mg p.o. twice daily, topiramate 100 mg p.o.twice daily Keppra 1,500 mg p.o. twice daily (7) GERD (gastroesophageal reflux disease): Continue home dose of continue omeprazole 40 mg p.o. every morning and ranitidine 300 mg p.o. nightly (8) DVT prophylaxis: SCDs - Short admission hopefully Total Time Total Time Spent Total Time Spent (In Minutes): 35 Discharge Plan Discharge Items Patient Disposition: Home - Self-Care Reason For Visit: UTI,HEPATIC ENCEPHALOPATHY,ELEVATED AMMONIA LEVEL Discharge Diagnosis: Urinary tract infection and hepatic encephalopathy Activity: Resume your previous activity Non-emergency contact: Primary Care Provider and Director Regulatory Affairs Call non-emergency contact if: you have any medication questions and your pain is not controlled Follow-up/Referrals: Balaji Zaragoza, [Primary Care Provider] - Diet: Low Sodium (2gm) Addtl Attending Provider Instructions: Please take the Bactrim tonight before bed and tomorrow morning. This will be a full course of antibiotics for a simple UTI. Please take your lactulose every day, even on days with travel or other issues. You can adjust the time of the dose, but you need to take it every day. If you do not, you will get hepatic encephalopathy. If you do not have a BM one day, you need to take an extra dose that evening (2 total doses) to avoid hepatic encephalopathy. Please follow up with Dr. Johns in the clinic. Pending Studies at Discharge: No Stand-Alone Forms: My [facility] Medications and DC Order Prescriptions: New sulfamethoxazole-trimethoprim 800-160 mg Tablet 1 tab PO Q12 Qty: 2 RF: 0 Continued topiramate 100 mg tablet 100 mg PO BID Qty: 60 RF: 5 prochlorperazine maleate [Compazine] 10 mg tablet 10 mg PO BID PRN (Reason: nausea and vomiting) 30 Days Qty: 12 RF: 0 tizanidine 4 mg capsule 4 mg PO Q8H PRN (Reason: muscle spasticity) 30 Days Qty: 12 RF: 0 lecithin 1,200 mg capsule 1,200 mg PO DAILY RF: 0 Novolog Flexpen U-100 Insulin 100 unit/mL (3 mL) insulin pen See Rx Instructions SQ .COMPLEX Qty: 1 RF: 5 ondansetron HCl [Zofran] 4 mg tablet 4 - 8 mg PO UD PRN (Reason: Nausea) RF: 0 multivitamin [Multiple Vitamins] Tablet 1 tab PO QDL RF: 0 levothyroxine 75 mcg Tablet 75 mcg PO QAM RF: 0 spironolactone 50 mg Tablet 50 mg PO QAM RF: 0 ranitidine HCl 300 mg tablet 300 mg PO HS RF: 0 omeprazole 40 mg capsule,delayed release(DR/EC) 40 mg PO QAM RF: 0 albuterol sulfate 90 mcg/actuation HFA aerosol inhaler 2 puffs INH 6XD PRN (Reason: shortness of breath or wheezing) Qty: 8 RF: 0 Refresh Tears 0.5 % Drops 1 drp OPHTHALMIC (EYE) BID PRN (Reason: Dry Eyes) RF: 0 ibuprofen-diphenhydramine cit [Ibuprofen PM] 200-38 mg Tablet 1 cap PO HS PRN (Reason: Sleep) RF: 0 Tresiba FlexTouch U-100 100 unit/mL (3 mL) insulin pen 15 unit subcut QAM Qty: 0 RF: 0 rifaximin 550 mg Tablet 550 mg PO BID RF: 0 lactulose 20 gram/30 mL solution 40 ml PO QAM RF: 0 oxcarbazepine [Trileptal] 600 mg Tablet 600 mg PO BID RF: 0 ibuprofen 200 mg tablet 200 - 400 mg PO DAILY PRN (Reason: pain/SLEEP) RF: 0 levetiracetam 750 mg tablet 1,500 mg PO BID RF: 0 vitamin A 8,000 unit Capsule 8,000 unit PO QDL RF: 0 vitamin B complex Tablet 1 tab PO QDL RF: 0 cholecalciferol (vitamin D3) [Vitamin D3] 1,000 unit Capsule 1,000 unit PO QDL RF: 0 Probiotic 3 billion cell Capsule PO QDL RF: 0 Menthol Drops 6.5 mg Lozenge PO UD PRN (Reason: Cough) RF: 0 polyethylene glycol 3350 [Miralax] 17 gram Powder In Packet 17 g PO QAM RF: 0 promethazine 25 mg tablet 25 mg PO Q6H PRN (Reason: sedation) Qty: 12 RF: 0 Discharge Orders: Discharge Order (Routine); Ordered 01/02/19 Ordered By: Law Freeman Admission Data Admit Date/Time: 12/31/18 20:11 Attending Provider: Law Freeman Admit Provider: Latonia Zuluaga Primary Care Provider: Balaji Zaragoza Other Providers: Law Freeman ; [place] ; Latonia Zuluaga Other Interventions: Discharge Summary Assessment (RN) Last Done: 01/02/19 12:12 DC Date/Time DO NOT enter until pt leaves facility: 01/02/19 15:00
== END 2019-01-02 15:00 | disposition home or self-care (01) ==
LOC: ED 14:43 → 2E 14:43 → SUATTDRO 20:11 → 2E 21:26 → 4W 01-01 13:21

== ENCOUNTER 2019-04-05 16:16 | Inpatient (IN) ==
[2019-04-05] MEDS ORDERED: SODIUM CHLORIDE 0.9% 1000ML 1,000 ML IV SCH (17:15)
--- NOTE | 2019-04-05 17:57 | XRay Report ---
XR chest 1V portable CLINICAL HISTORY: 53 years-old Female presenting with weakness. TECHNIQUE: Portable upright AP view of the chest was obtained. COMPARISON: 02/09/2019. FINDINGS: Right internal jugular Mediport terminates in the lower SVC. Cardiac silhouette mildly enlarged as on prior exam. Low lung volumes with hypoventilatory changes including mild pulmonary vascular prominen ce. Obscuration of the left hemidiaphragm is new from prior. No other focal opacity. No large effusio n or pneumothorax. Internal fixation of the left humerus. Cholecystectomy clips noted. IMPRESSION: 1. Low lung volumes with hypoventilatory changes and suspected left basilar atelectasis. 2. Mild cardiomegaly. ACT 112: Negative or not required by law. Electronically signed by: Davis Gallegos M.D. 04/05/2019 5:56 PM
[2019-04-05 18:05] LABS: Hematocrit (blood only) 31.9 % (37-47); Hemoglobin 11.5 g/dL (12.0-16.0); Mean Corpuscular Hemoglobin 36.9 pg (25-34); Mean Corpuscular Hgb Conc 36.1 g/dL (32-36); Mean Corpuscular Volume 102.2 fL (80-100); RDW Coefficient of Variation 14.2 % (11.5-14.5); RDW Standard Deviation 52.6 fL (36.4-46.3); Red Blood Count 3.12 M/uL (4.2-5.4)
[2019-04-05 18:16] LABS: Alanine Aminotransferase 76 U/L (12-78); Albumin Level 3.1 gm/dl (3.4-5.0); Aspartate Aminotransferase 50 U/L (15-37); BUN Creatinine Ratio 18.3 (10-20); Blood Urea Nitrogen 9 mg/dl (7-18); Calcium 8.2 mg/dl (8.5-10.1); Carbon Dioxide 22 mmol/L (21-32); Chloride 110 mmol/L (98-107); Est GFR (African American) 127.2; Est GFR (Non-African American) 109.8; Glucose 150 mg/dl (70-99); Magnesium 1.6 mg/dl (1.8-2.4); Potassium 3.8 mmol/L (3.5-5.1); Sodium 136 mmol/L (136-145)
[2019-04-05 18:18] LABS: INR 1.3 (0.9-1.1); Prothrombin Time 12.8 Seconds (9.0-12.0)
[2019-04-05 18:23] LABS: Basophils # (auto) 0.03 K/uL (0-0.2); Basophils % (auto) 0.6 %; Eosinophils # (auto) 0.16 K/uL (0-0.5); Eosinophils % (auto) 3.2 %; Lymphocytes # (auto) 1.42 K/uL (1.2-3.4); Lymphocytes % (auto) 28.4 %; Mean Platelet Volume 10.2 fL (7.4-10.4); Monocytes # (auto) 0.52 K/uL (0.11-0.59); Monocytes % (auto) 10.4 %; Neutrophils # (auto) 2.87 K/uL (1.4-6.5); Neutrophils % (auto) 57.4 %; Platelet Count 86 K/uL (130-400)
[2019-04-05 18:27] LABS: Alkaline Phosphatase 162 U/L (45-117); Bilirubin,Total 1.9 mg/dl (0.2-1); Globulin 3.2 gm/dl (2.5-4.0); Thyroid Stimulating Hormone 0.366 uIu/ml (0.300-4.500); Total Protein 6.3 gm/dl (6.4-8.2); Troponin I < 0.015 ng/ml (0-0.045)
--- NOTE | 2019-04-05 18:28 | CT Scan Report ---
CT head/brain wo con CLINICAL HISTORY: 53 years-old Female presenting with AMS. TECHNIQUE: Multidetector CT imaging of the head was performed without the use of intravenous contrast . IV contrast: None. One or more dose lowering techniques were used consistent with the principles of ALARA (as low as reasonably achievable), including automatic exposure control, mA or kV adjustment t o individual patient size, and/or use of iterative reconstruction. COMPARISON: 12/31/2018. CT DOSE (mGy.cm): The estimated cumulative dose is 1228.53 mGy.cm. FINDINGS: Road Mechanic topogram: Unremarkable. Ventricles and sulci normal in size. No hemorrhage. Brain parenchyma normal in appearance with preser joann jorgensen-white differentiation. No acute territorial infarct. No mass effect or midline shift. No ext ra-axial fluid collection. Paranasal sinuses and mastoid air cells clear. Calvarium intact. IMPRESSION: 1. No acute intracranial abnormality. ACT 112: Negative or not required by law. Electronically signed by: Davis Gallegos M.D. 04/05/2019 6:26 PM
[2019-04-05 19:05] LABS: Appearance Urine Cloudy (Clear); Bacteria Urine Automated Negative (Negative); Bilirubin Urine Negative (Negative); Blood Urine Negative (Negative); Color Urine Dark Yellow; Epithelial Cell Urine Auto >30 /lpf (0-5); Glucose Urine UA Negative (Negative); Ketones Urine Negative (Negative); Leukocyte Esterase Urine Negative (Negative); Nitrite Urine Negative (Negative); Protein Urine Negative (Negative); RBC Urine Automated 0-4 /hpf (0-4); Specific Gravity Urine 1.013 (1.000-1.030); Urobilinogen Urine Negative (Negative); pH Urine 8.5 (4.5-7.5)
[2019-04-05 19:17] LABS: Amorphous Sediment Urine Present (None Prsent)
[2019-04-05] MEDS ORDERED: LACTULOSE SYRUP 20 GM/30 ML UDC NG STA (19:52)
--- NOTE | 2019-04-05 20:38 | History & Physical Report ---
Date of Service April 05, 2019 Assessment & Plan (1) Hepatic encephalopathy: Hepatic encephalopathy/hyperammonemia- Ammonia level 153 upon admission. NG tube placed. Lactulose 30 g via NG tube 4 times daily. Daily ammonia levels. No active signs of infection. Present on Admission?: Yes (2) Hyperammonemia: See above Present on Admission?: Yes (3) Altered consciousness: Secondary to hyperammonemia and hepatic encephalopathy Present on Admission?: Yes (4) Seizure disorder: Seizure disorder/major depressive disorder with psychotic features/borderline personality disorder/parkinsonism- While n.p.o., change Keppra to 1500 mg IV twice daily. Change oxcarbazepine to 300 in the a.m. and 600 mg in the p.m. via NG tube. Change topiramate to 100 mg via NG tube twice daily Present on Admission?: Yes (5) Major depressive disorder with psychotic features: See above Present on Admission?: Yes (6) Borderline personality disorder: See above Present on Admission?: Yes (7) Parkinsonism: See above Present on Admission?: Yes (8) Hypothyroidism: On levothyroxine 75 mcg every morning. Resume when more alert May place down NG tube if necessary Present on Admission?: Yes (9) Asthma: DuoNebs every 4 hours as needed Present on Admission?: Yes (10) 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 type 2 in nonobese: Hold long-acting insulin. Place on Accu-Cheks every 6 hours with NovoLog coverage per scale Present on Admission?: Yes History of Present Illness Chief Complaint: The patient is brought to the emergency department in a barely responsive state, with ambulatory dysfunction and urinary incontinence that per the began the previous evening Primary Care Provider: Balaji Zaragoza DO The patient is a 53-year-old female with a past medical history including diabetes mellitus type 2, liver cirrhosis, asthma, GERD, seizure disorder, migraines, parkinsonism, anemia, thrombocytopenia, hypersplenism and hypothyroidism, who presents to the emergency department barely responsive state, lethargic, urinary incontinence and ambulatory dysfunction that per the began the previous evening. She has not had any medication since that time. Both the HPI and review of systems are severely limited due to the patient's nonresponsive state, and are primarily supplied by the . Allergies Allergy/AdvReac Type Severity Reaction Status Date / Time metronidazole Allergy Severe SEIZURE Verified 04/05/19 17:28 tramadol Allergy Severe SEIZURES Verified 04/05/19 17:28 amoxicillin Allergy Intermediate HIVES; Has Verified 04/05/19 17:28 tolerated cephalosporins (Rocephin, Ceftin,Keflex baclofen Allergy Intermediate RASH Verified 04/05/19 17:28 butalbital Allergy Intermediate HIVES Verified 04/05/19 17:28 cat dander Allergy Intermediate Hives Verified 04/05/19 17:28 ceftriaxone [From Rocephin] Allergy Intermediate Hives Verified 04/05/19 17:28 clarithromycin Allergy Intermediate RASH Verified 04/05/19 17:28 clavulanic acid Allergy Intermediate Diarrhea Verified 04/05/19 17:28 dicyclomine Allergy Intermediate HIVES Verified 04/05/19 17:28 dog dander Allergy Intermediate Hives Verified 04/05/19 17:28 horse dander Allergy Intermediate Hives Verified 04/05/19 17:28 Penicillins Allergy Intermediate RASH; has Verified 04/05/19 17:28 tolerated cephs (Rocephin, Keflex, Ceftin) pollen extracts Allergy Intermediate Hives Verified 04/05/19 17:28 Tetracyclines Allergy Intermediate DOXYCYCLINE Verified 04/05/19 17:28 -HIVES adhesive Allergy Mild RASH, Verified 04/05/19 17:28 DUODERM=RED,ITCHY grape Allergy Mild Nausea Verified 04/05/19 17:28 sulindac Allergy Mild ALLERGY Verified 04/05/19 17:28 LISTED "CLONDORAL"--HIVES azithromycin Allergy Unknown Verified 04/05/19 17:28 Cephalosporins AdvReac Severe TURNS Verified 04/05/19 17:28 STOOL VERY DARK furosemide AdvReac Severe HIVES Verified 04/05/19 17:28 metoclopramide AdvReac Severe SEIZURES Verified 04/05/19 17:28 cefdinir AdvReac Intermediate Diarrhea Verified 04/05/19 17:28 blueberry AdvReac Mild STOMACH Verified 04/05/19 17:28 PAIN celecoxib AdvReac Mild HIVES Verified 04/05/19 17:28 Home Medications Home Medications Medication Instructions Recorded Confirmed Type levothyroxine 75 mcg PO QAM 12/26/17 04/05/19 History multivitamin [Multiple Vitamins] 1 tab PO QDL 12/26/17 04/05/19 History lactulose 40 ml PO QAM 01/18/18 04/05/19 History ibuprofen 400 mg PO HS 08/07/18 04/05/19 History Probiotic 0 mmu cells PO QDL 09/20/18 04/05/19 History cholecalciferol (vitamin D3) 1,000 unit PO QDL 09/20/18 04/05/19 History [Vitamin D3] vitamin A 8,000 unit PO QDL 09/20/18 04/05/19 History vitamin B complex 1 tab PO QDL 09/20/18 04/05/19 History albuterol sulfate 2 puffs INH 6XD PRN #8 gm 10/21/18 04/05/19 Rx polyethylene glycol 3350 [Miralax] 17 g PO QAM 10/27/18 04/05/19 History promethazine 25 mg PO Q6H PRN #12 tab 10/27/18 04/05/19 Rx topiramate 100 mg tablet 100 mg PO BID #60 tab 12/04/18 04/05/19 Rx omeprazole 40 mg PO DAILY 01/07/19 04/05/19 History rifaximin [Xifaxan] 550 mg PO BID 01/07/19 04/05/19 History cranberry 400 mg PO DAILY 02/04/19 04/05/19 History oxcarbazepine 300 mg PO QAM 02/04/19 04/05/19 History oxcarbazepine 600 mg PO HS 02/04/19 04/05/19 History zinc 50 mg PO DAILY 02/09/19 04/05/19 History levetiracetam 750 mg tablet 1,500 mg PO BID 30 Days #120 tab 03/19/19 04/05/19 Rx pen needle, diabetic 31 gauge x See Rx Instructions .ROUTE 03/29/19 04/05/19 Rx 3/16" .COMPLEX #100 each tbmeosfxoxvnrjbhdhcddk-gwwkenmc-pkoeoyhc 1 drops OP BID ml 03/30/19 04/05/19 History 80 0.5 %-1 %-0.5 % eye drops famotidine 40 mg tablet 40 mg PO DAILY 03/30/19 04/05/19 History fluticasone furoate 100 1 puffs INH DAILY 03/30/19 04/05/19 History mcg-vilanterol 25 mcg/dose inhalation powder insulin aspart U-100 100 unit/mL See Rx Instructions SQ .COMPLEX 03/30/19 04/05/19 History (3 mL) subcutaneous pen insulin degludec 100 unit/mL (3 10 units SUBCUT QAM ml 03/30/19 04/05/19 History mL) subcutaneous pen melatonin 10 mg capsule 15 mg PO HS cap 03/30/19 04/05/19 History spironolactone 50 mg tablet 25 mg PO QAM tab 03/30/19 04/05/19 History epinephrine 0.3 mg/0.3 mL 0.3 mg IM Q10M PRN 04/02/19 04/05/19 History injection, auto-injector Past Med/Surg History Social History Preferred Language: [place] Communication Ability: Effective Visual Impairment: No Limitations Pharmacy Operations Manager Required: No Beliefs That Will Affect Care: None marital status: Current Living Situation: Spouse Current Living Situation Comment: Lives with in apartment current occupational status: unemployed and disabled Other Information That Helps Us Care for You: No Feels Safe at Home: Yes Smoking Status: Unknown if ever smoked Hx Alcohol Use: No Hx Substance Use: No Seatbelt Use: always Review of Systems Review of Systems: Unobtainable due to reduced consciousness Physical Exam Physical Exam: The patient is obtunded, nonresponsive, normocephalic and atraumatic, lying in bed and in no acute distress. HEENT--PERRL, EOMI, mucous membranes and oropharynx dry. Neck--supple. No JVD. No bruits. Thyroid normal, trachea midline, no adenopathy. Heart--normal S1 and S2. No murmurs, rubs or gallops. Lungs--clear bilaterally, no respiratory distress, no accessory muscle use. Abdomen--normal bowel sounds and soft. Nontender. Mildly distended and tympanitic. Extremities--no cyanosis or clubbing. No edema. There are good distal pulses b/l. Dermatologic--normal skin turgor, normal color, no abnormal lymph nodes, no rash. Neurologic--cranial nerves II through XII grossly intact. Rheumatologic--very limited exam Psychiatric--obtunded Results & Data Vital Signs (Past 12 Hours) Vital Signs Temp Pulse Resp BP Pulse Ox 04/05/19 20:31 97 H 22 171/78 H 96 04/05/19 20:30 98 H 23 97 04/05/19 20:01 83 99 04/05/19 20:00 83 154/77 H 99 04/05/19 19:31 86 23 99 04/05/19 19:30 84 20 158/88 H 99 04/05/19 19:01 86 172/60 H 99 04/05/19 19:00 85 100 04/05/19 18:31 81 17 99 04/05/19 18:30 81 16 143/70 H 99 04/05/19 18:29 83 21 148/63 H 98 04/05/19 18:00 85 23 100 04/05/19 17:30 89 23 99 04/05/19 17:20 100 04/05/19 17:09 83 24 100 04/05/19 17:05 84 21 135/64 99 04/05/19 16:29 98.2 F 91 H 16 126/67 100 Laboratory Results Laboratory Results WBC 5.00 K/uL (4.8-10.8) 04/05/19 17:45 RBC 3.12 M/uL (4.2-5.4) L 04/05/19 17:45 Hgb 11.5 g/dL (12.0-16.0) L 04/05/19 17:45 Hct 31.9 % (37-47) L 04/05/19 17:45 MCV 102.2 fL (80-100) H 04/05/19 17:45 MCH 36.9 pg (25-34) H 04/05/19 17:45 MCHC 36.1 g/dL (32-36) H 04/05/19 17:45 RDW Std Deviation 52.6 fL (36.4-46.3) H 04/05/19 17:45 RDW Coeff of Irina 14.2 % (11.5-14.5) 04/05/19 17:45 Plt Count 86 K/uL (130-400) L 04/05/19 17:45 MPV 10.2 fL (7.4-10.4) 04/05/19 17:45 Immature Gran % (Auto) 0.0 % 04/05/19 17:45 Neut % (Auto) 57.4 % 04/05/19 17:45 Lymph % (Auto) 28.4 % 04/05/19 17:45 [place] % (Auto) 10.4 % 04/05/19 17:45 Eos % (Auto) 3.2 % 04/05/19 17:45 Baso % (Auto) 0.6 % 04/05/19 17:45 Immature Gran # (Auto) 0.00 K/uL (0.00-0.02) 04/05/19 17:45 Neut # (Auto) 2.87 K/uL (1.4-6.5) 04/05/19 17:45 Lymph # (Auto) 1.42 K/uL (1.2-3.4) 04/05/19 17:45 [place] # (Auto) 0.52 K/uL (0.11-0.59) 04/05/19 17:45 Eos # (Auto) 0.16 K/uL (0-0.5) 04/05/19 17:45 Baso # (Auto) 0.03 K/uL (0-0.2) 04/05/19 17:45 PT 12.8 Seconds (9.0-12.0) H 04/05/19 17:45 INR 1.3 (0.9-1.1) H 04/05/19 17:45 Sodium 136 mmol/L (136-145) 04/05/19 17:45 Potassium 3.8 mmol/L (3.5-5.1) 04/05/19 17:45 Chloride 110 mmol/L (98-107) H 04/05/19 17:45 Carbon Dioxide 22 mmol/L (21-32) 04/05/19 17:45 Anion Gap 4.0 (3-11) 04/05/19 17:45 BUN 9 mg/dl (7-18) 04/05/19 17:45 Creatinine 0.51 mg/dl (0.6-1.2) L 04/05/19 17:45 Est Cr Clr Drug Dosing 139.0 ml/min 04/05/19 17:45 Est GFR ( Amer) 127.2 04/05/19 17:45 Est GFR (Non-Af Amer) 109.8 04/05/19 17:45 BUN/Creatinine Ratio 18.3 (10-20) 04/05/19 17:45 Glucose 150 mg/dl (70-99) H 04/05/19 17:45 POC Glucose 158 (70-99) H 04/06/19 00:03 Calcium 8.2 mg/dl (8.5-10.1) L 04/05/19 17:45 Magnesium 1.5 mg/dl (1.8-2.4) L 04/05/19 23:22 Total Bilirubin 1.9 mg/dl (0.2-1) H 04/05/19 17:45 AST 50 U/L (15-37) H 04/05/19 17:45 ALT 76 U/L (12-78) 04/05/19 17:45 Alkaline Phosphatase 162 U/L (45-117) H 04/05/19 17:45 Ammonia 153.0 umol/L (11-32) H 04/05/19 17:45 Troponin I < 0.015 ng/ml (0-0.045) 04/05/19 17:45 Total Protein 6.3 gm/dl (6.4-8.2) L 04/05/19 17:45 Albumin 3.1 gm/dl (3.4-5.0) L 04/05/19 17:45 Globulin 3.2 gm/dl (2.5-4.0) 04/05/19 17:45 Albumin/Globulin Ratio 1.0 (0.9-2) 04/05/19 17:45 TSH 0.366 uIu/ml (0.300-4.500) 04/05/19 17:45 Urine Color Dark Yellow 04/05/19 18:53 Urine Appearance Cloudy (Clear) A 04/05/19 18:53 Urine pH 8.5 (4.5-7.5) H 04/05/19 18:53 Ur Specific [place] 1.013 (1.000-1.030) 04/05/19 18:53 Urine Protein Negative (Negative) 04/05/19 18:53 Urine Glucose (UA) Negative (Negative) 04/05/19 18:53 Urine Ketones Negative (Negative) 04/05/19 18:53 Urine Blood Negative (Negative) 04/05/19 18:53 Urine Nitrite Negative (Negative) 04/05/19 18:53 Urine Bilirubin Negative (Negative) 04/05/19 18:53 Urine Urobilinogen Negative (Negative) 04/05/19 18:53 Ur Leukocyte Esterase Negative (Negative) 04/05/19 18:53 Urine WBC (Auto) 1-5 /hpf (0-5) 04/05/19 18:53 Urine RBC (Auto) 0-4 /hpf (0-4) 04/05/19 18:53 U Hyaline Cast (Auto) 1-5 /lpf (0-5) 04/05/19 18:53 U Epithel Cells (Auto) >30 /lpf (0-5) H 04/05/19 18:53 Urine Bacteria (Auto) Negative (Negative) 04/05/19 18:53 Ur Renal Epithelial Cell 10-20 /lpf (0-5) H 04/05/19 18:53 Amorphous Sediment Present (None Prsent) A 04/05/19 18:53 Diagnostic Findings [place], [place] [phone] XRay Report Patient: CHRISTO SAN CAdmit Date: 04/05/19 MR#: [id number]: [address], [address] Acct ID:[id number]: Date: 1965City Zip: [place] [address] Age: 53Location: ED Sex: F Room/Bed: Att Phy:Diagnosis: INCONTINENT, BARELY RESPONSIVE Eve Phy: Balaji Zaragoza DOService Date: 04/05/19 Fam Phy:Interpreting Phy: Davis Gallegos MD Admit Phy: Ordering Phy: Alexis Jones M.D. cc: ~ XR chest 1V portable CLINICAL HISTORY: 53 years-old Female presenting with weakness. TECHNIQUE: Portable upright AP view of the chest was obtained. COMPARISON: 02/09/2019. FINDINGS: Right internal jugular Mediport terminates in the lower SVC. Cardiac silhouette mildly enlarged as on prior exam. Low lung volumes with hypoventilatory changes including mild pulmonary vascular prominence. Obscuration of the left hemidiaphragm is new from prior. No other focal opacity. No large effusion or pneumothorax. Internal fixation of the left humerus. Cholecystectomy clips noted. IMPRESSION: 1. Low lung volumes with hypoventilatory changes and suspected left basilar atelectasis. 2. Mild cardiomegaly. ACT 112: Negative or not required by law. Electronically signed by: Davis Gallegos M.D. 04/05/2019 5:56 PM Dictated: 04/05/191753 Transcribed: 04/05/191753 [facility] [place] [phone] CT Scan Report Patient: CHRISTO SAN Date: 04/05/19 MR#: [id number]: [address], [address] Acct ID:[id number]: Date: 1965[address] Zip: [place] [address] Age: 53Location: ED Sex: F Room/Bed: Att Phy:Diagnosis: INCONTINENT, BARELY RESPONSIVE Eve Phy: Balaji Zaragoza DOService Date: 04/05/19 Fam Phy:Interpreting Phy: Davis Gallegos MD Admit Phy: Ordering Phy: Alexis Jones M.D. cc: ~ CT head/brain wo con CLINICAL HISTORY: 53 years-old Female presenting with AMS. TECHNIQUE: Multidetector CT imaging of the head was performed without the use of intravenous contrast. IV contrast: None. One or more dose lowering techniques were used consistent with the principles of ALARA (as low as reasonably achievable), including automatic exposure control, mA or kV adjustment to individual patient size, and/or use of iterative reconstruction. COMPARISON: 12/31/2018. CT DOSE (mGy.cm): The estimated cumulative dose is 1228.53 mGy.cm. FINDINGS: Testing Consultant topogram: Unremarkable. Ventricles and sulci normal in size. No hemorrhage. Brain parenchyma normal in appearance with preserved jorgensen-white differentiation. No acute territorial infarct. No mass effect or midline shift. No extra-axial fluid collection. Paranasal sinuses and mastoid air cells clear. Calvarium intact. IMPRESSION: 1. No acute intracranial abnormality. ACT 112: Negative or not required by law. Electronically signed by: Davis Gallegos M.D. 04/05/2019 6:26 PM Dictated: 04/05/191823 Transcribed: 04/05/191823 Code Status & VTE Plan Code Status Full code VTE Prophylaxis Plan VTE Prophylaxis will be ordered: Yes PG Care Time/CCT Total # of Minutes Spent Total Time Spent with Patient: Total time spent is greater than 50% in coordination of care (as documented) at patient's floor/unit and/or counseling patient: (1) Asthma Asthma severity: unspecified severity Asthma persistence: unspecified Asthma complication type: unspecified Qualified Code(s): J45.909 - Unspecified asthma, uncomplicated
[2019-04-05] MEDS ORDERED: levETIRAcetam 1,500 MG in DEXTROSE 5% 100 ML IV STA (20:52)
[2019-04-05] MEDS ORDERED: OXcarbazepine 150 MG TABLET NG SCH (21:00)
--- NOTE | 2019-04-05 21:24 | Emergency Department Note ---
Entered by Blanca Metcalf acting as a scribe for History of Present Illness General Chief complaint: Lethargic Stated complaint: INCONTINENT, BARELY RESPONSIVE Time Seen by Provider: 04/05/19 16:55 History of Present Illness Provider complaint: lethargy Onset (ago): day(s) 1 Pain Consistency: + other (worsening) Quality: + other (lethargy) Associated symptoms: + denies other symptoms (medicine changes, recent falls), + cough (intermittent), + weakness and + other (barely responsive, unsteady upon ambulation, incontinent, nonverbal 0900, drooling); no nausea/vomiting Treatments prior to arrival: other (lactulose ) The patient is a 53 year old white female w/ PMHx of seizure disorder, GERD, type 2 diabetes, cirrhosis, migraines, hypothyroidism, asthma and UTI who presents to the ED w/ CC of worsening lethargy beginning 1 day ago. Per , the patient has been barely responsive, weak, unsteady upon ambulation and incontinent started last night. Per , the patient became nonverbal at 0900 this morning. Per , the patient has not had any recent medicine changes or recent falls. Per , the patient was also drooling and intermittent coughing. The patients denies the patient ever vomiting. Per , the patient did take her lactulose this morning. Per , the patient had a regularly scheduled appointment with her neurologist, Dr. Flores, 3 days ago and he ordered lab work to check her medicine levels. Home Medications Home Medications Medication Instructions Recorded Confirmed Type levothyroxine 75 mcg PO QAM 12/26/17 04/05/19 History multivitamin [Multiple Vitamins] 1 tab PO QDL 12/26/17 04/05/19 History lactulose 40 ml PO QAM 01/18/18 04/05/19 History ibuprofen 400 mg PO HS 08/07/18 04/05/19 History Probiotic 0 mmu cells PO QDL 09/20/18 04/05/19 History cholecalciferol (vitamin D3) 1,000 unit PO QDL 09/20/18 04/05/19 History [Vitamin D3] vitamin A 8,000 unit PO QDL 09/20/18 04/05/19 History vitamin B complex 1 tab PO QDL 09/20/18 04/05/19 History albuterol sulfate 2 puffs INH 6XD PRN #8 gm 10/21/18 04/05/19 Rx polyethylene glycol 3350 [Miralax] 17 g PO QAM 10/27/18 04/05/19 History promethazine 25 mg PO Q6H PRN #12 tab 10/27/18 04/05/19 Rx topiramate 100 mg tablet 100 mg PO BID #60 tab 12/04/18 04/05/19 Rx omeprazole 40 mg PO DAILY 01/07/19 04/05/19 History rifaximin [Xifaxan] 550 mg PO BID 01/07/19 04/05/19 History cranberry 400 mg PO DAILY 02/04/19 04/05/19 History oxcarbazepine 300 mg PO QAM 02/04/19 04/05/19 History oxcarbazepine 600 mg PO HS 02/04/19 04/05/19 History zinc 50 mg PO DAILY 02/09/19 04/05/19 History levetiracetam 750 mg tablet 1,500 mg PO BID 30 Days #120 tab 03/19/19 04/05/19 Rx pen needle, diabetic 31 gauge x See Rx Instructions .ROUTE 03/29/19 04/05/19 Rx 3/16" .COMPLEX #100 each sttiwjqwjcgrccuymrlbvv-lxhvsvsm-wewavavx 1 drops OP BID ml 03/30/19 04/05/19 History 80 0.5 %-1 %-0.5 % eye drops famotidine 40 mg tablet 40 mg PO DAILY 03/30/19 04/05/19 History fluticasone furoate 100 1 puffs INH DAILY 03/30/19 04/05/19 History mcg-vilanterol 25 mcg/dose inhalation powder insulin aspart U-100 100 unit/mL See Rx Instructions SQ .COMPLEX 03/30/19 04/05/19 History (3 mL) subcutaneous pen insulin degludec 100 unit/mL (3 10 units SUBCUT QAM ml 03/30/19 04/05/19 History mL) subcutaneous pen melatonin 10 mg capsule 15 mg PO HS cap 03/30/19 04/05/19 History spironolactone 50 mg tablet 25 mg PO QAM tab 03/30/19 04/05/19 History epinephrine 0.3 mg/0.3 mL 0.3 mg IM Q10M PRN 04/02/19 04/05/19 History injection, auto-injector Allergies Allergy/AdvReac Type Severity Reaction Status Date / Time metronidazole Allergy Severe SEIZURE Verified 04/05/19 17:28 tramadol Allergy Severe SEIZURES Verified 04/05/19 17:28 amoxicillin Allergy Intermediate HIVES; Has Verified 04/05/19 17:28 tolerated cephalosporins (Rocephin, Ceftin,Keflex baclofen Allergy Intermediate RASH Verified 04/05/19 17:28 butalbital Allergy Intermediate HIVES Verified 04/05/19 17:28 cat dander Allergy Intermediate Hives Verified 04/05/19 17:28 ceftriaxone [From Rocephin] Allergy Intermediate Hives Verified 04/05/19 17:28 clarithromycin Allergy Intermediate RASH Verified 04/05/19 17:28 clavulanic acid Allergy Intermediate Diarrhea Verified 04/05/19 17:28 dicyclomine Allergy Intermediate HIVES Verified 04/05/19 17:28 dog dander Allergy Intermediate Hives Verified 04/05/19 17:28 horse dander Allergy Intermediate Hives Verified 04/05/19 17:28 Penicillins Allergy Intermediate RASH; has Verified 04/05/19 17:28 tolerated cephs (Rocephin, Keflex, Ceftin) pollen extracts Allergy Intermediate Hives Verified 04/05/19 17:28 Tetracyclines Allergy Intermediate DOXYCYCLINE Verified 04/05/19 17:28 -HIVES adhesive Allergy Mild RASH, Verified 04/05/19 17:28 DUODERM=RED,ITCHY grape Allergy Mild Nausea Verified 04/05/19 17:28 sulindac Allergy Mild ALLERGY Verified 04/05/19 17:28 LISTED "CLONDORAL"--HIVES azithromycin Allergy Unknown Verified 04/05/19 17:28 Cephalosporins AdvReac Severe TURNS Verified 04/05/19 17:28 STOOL VERY DARK furosemide AdvReac Severe HIVES Verified 04/05/19 17:28 metoclopramide AdvReac Severe SEIZURES Verified 04/05/19 17:28 cefdinir AdvReac Intermediate Diarrhea Verified 04/05/19 17:28 blueberry AdvReac Mild STOMACH Verified 04/05/19 17:28 PAIN celecoxib AdvReac Mild HIVES Verified 04/05/19 17:28 Past Med/Surg History Social History Preferred Language: Turkish Communication Ability: Effective Visual Impairment: No Limitations Systems Spec Required: No Beliefs That Will Affect Care: None marital status: Current Living Situation: Spouse Current Living Situation Comment: Lives with in apartment current occupational status: unemployed and disabled Other Information That Helps Us Care for You: No Feels Safe at Home: Yes Smoking Status: Unknown if ever smoked Hx Alcohol Use: No Hx Substance Use: No Seatbelt Use: always Review of Systems See HPI for pertinent positives & negatives. and A total of 10 systems reviewed and were otherwise negative Unobtainable due to reduced consciousness This is per the patient's who was at the bedside providing the history. Physical Exam Vital Signs Vital Signs - 24 hr 04/05/19 16:29 04/05/19 17:05 04/05/19 17:09 Temperature 36.8 C Temperature Source Oral Pulse Rate 91 H 84 83 Pulse Rate from SpO2 Sensor 84 84 Respiratory Rate 16 21 24 Respiratory Effort / Characteristics Non-Labored Respiratory Depth Normal Blood Pressure 126/67 135/64 Blood Pressure Mean 86 76 Pulse Oximetry 100 99 100 Oxygen Delivery Method Room Air Sepsis Recent Fever Within 48 Hours No Sepsis Action Taken by Nursing No Action Required 04/05/19 17:20 04/05/19 17:30 04/05/19 18:00 Temperature Temperature Source Pulse Rate 89 85 Pulse Rate from SpO2 Sensor 88 85 Respiratory Rate 23 23 Respiratory Effort / Characteristics Respiratory Depth Blood Pressure Blood Pressure Mean Pulse Oximetry 100 99 100 Oxygen Delivery Method Room Air Sepsis Recent Fever Within 48 Hours Sepsis Action Taken by Nursing 04/05/19 18:29 04/05/19 18:30 04/05/19 18:31 Temperature Temperature Source Pulse Rate 83 81 81 Pulse Rate from SpO2 Sensor 83 81 81 Respiratory Rate 21 16 17 Respiratory Effort / Characteristics Respiratory Depth Blood Pressure 148/63 H 143/70 H Blood Pressure Mean 82 82 Pulse Oximetry 98 99 99 Oxygen Delivery Method Sepsis Recent Fever Within 48 Hours Sepsis Action Taken by Nursing 04/05/19 19:00 04/05/19 19:01 04/05/19 19:30 Temperature Temperature Source Pulse Rate 85 86 84 Pulse Rate from SpO2 Sensor 85 86 84 Respiratory Rate 20 Respiratory Effort / Characteristics Respiratory Depth Blood Pressure 172/60 H 158/88 H Blood Pressure Mean 92 123 Pulse Oximetry 100 99 99 Oxygen Delivery Method Sepsis Recent Fever Within 48 Hours Sepsis Action Taken by Nursing 04/05/19 19:31 04/05/19 20:00 04/05/19 20:01 Temperature Temperature Source Pulse Rate 86 83 83 Pulse Rate from SpO2 Sensor 85 84 83 Respiratory Rate 23 Respiratory Effort / Characteristics Respiratory Depth Blood Pressure 154/77 H Blood Pressure Mean 98 Pulse Oximetry 99 99 99 Oxygen Delivery Method Sepsis Recent Fever Within 48 Hours Sepsis Action Taken by Nursing 04/05/19 20:30 04/05/19 20:31 Temperature Temperature Source Pulse Rate 98 H 97 H Pulse Rate from SpO2 Sensor 98 H 97 H Respiratory Rate 23 22 Respiratory Effort / Characteristics Respiratory Depth Blood Pressure 171/78 H Blood Pressure Mean 100 Pulse Oximetry 97 96 Oxygen Delivery Method Sepsis Recent Fever Within 48 Hours Sepsis Action Taken by Nursing GENERAL: Well nourished, non-toxic. EYE EXAM: Normal conjunctiva. PERRL, no anisocoria and EOM's grossly intact w/o pain. OROPHARYNX: Moist mucous membranes. Grossly normal dentition. NECK: Supple, no nuchal rigidity, no adenopathy, non-tender. No signs of meningismus. CHEST: Port in place right chest. LUNGS: Clear to auscultation. Normal chest wall mechanics. HEART: NSR, no MRG. ABDOMEN: Abdomen soft, non-tender, normo-active bowel sounds, no masses, no rebound or guarding. BACK: No CVA TTP. SKIN: No rashes and no bruising. UPPER EXTREMITIES: Upper extremities are grossly normal. LOWER EXTREMITIES: No pitting edema. No calf pain. NEURO EXAM: Localizes to pain, says "ow," does not open eyes, does not follow commands. Course Course 1710: Past medical records reviewed. The patient was evaluated in room A10. A complete history and physical exam was performed. 1714: The patient was put on a engine monitor at this time. 1739: POC blood glucose is 158. 1948: I discussed the patient's case with Dr. Guaman [facility] Hospitalist. He will evaluate the patient for further management. Consultations Consultation #1: I discussed the patient's case with Dr. Guaman [facility] Hospitalist. He will evaluate the patient for further management. Time: 19:48 Administered Medications Oxcarbazepine (Trileptal) 600 mg NG QPM SHEBA Stop: 05/05/19 20:59 Last Admin: 04/05/19 21:46 Dose: 600 mg Documented by: [id number] Topiramate (Topamax) 100 mg PO BID SHEBA Stop: 05/05/19 20:59 Last Admin: 04/05/19 21:46 Dose: 100 mg Documented by: [id number] Discontinued Medications Sodium Chloride (Nss 1000ml) 1,000 mls @ 999 mls/hr IV .Q1H1M SHEBA Stop: 04/05/19 18:15 Last Infusion: 04/05/19 18:45 Dose: 0 mls/hr Documented by: [id number] Admin: 04/05/19 17:44 Dose: 999 mls/hr Documented by: [id number] Levetiracetam 1,500 mg/ (Dextrose) 115 mls @ 440 mls/hr IV BID STA Stop: 04/05/19 21:07 Last Infusion: 04/05/19 21:33 Dose: 0 mls/hr Documented by: [id number] Admin: 04/05/19 21:17 Dose: 440 mls/hr Documented by: [id number] Lactulose (Chronulac) 30 gm NG NOW STA Stop: 04/05/19 19:53 Last Admin: 04/05/19 20:41 Dose: 30 gm Documented by: [id number] Medical Decision Making Differential Diagnosis Differential diagnoses includes but is not limited to toxic, metabolic, infectious, traumatic, cardiac, neurologic, hematologic, psychiatric and inflammatory etiologies. Medical Records Attestation: I reviewed the patient's medical records. Home Medications Current Medication List: was personally reviewed by me Laboratory Data Attestation: I reviewed the patient's lab results. Result diagrams: 04/05/19 17:45 04/05/19 17:45 Lab Results 04/05/19 04/05/19 04/05/19 Range/Units 17:23 17:45 17:45 WBC 5.00 (4.8-10.8) K/uL RBC 3.12 L (4.2-5.4) M/uL Hgb 11.5 L (12.0-16.0) g/dL Hct 31.9 L (37-47) % MCV 102.2 H (80-100) fL MCH 36.9 H (25-34) pg MCHC 36.1 H (32-36) g/dL RDW Std Deviation 52.6 H (36.4-46.3) fL RDW Coeff of Irina 14.2 (11.5-14.5) % Plt Count 86 L (130-400) K/uL MPV 10.2 (7.4-10.4) fL Immature Gran % (Auto) 0.0 % Neut % (Auto) 57.4 % Lymph % (Auto) 28.4 % [place] % (Auto) 10.4 % Eos % (Auto) 3.2 % Baso % (Auto) 0.6 % Immature Gran # (Auto) 0.00 (0.00-0.02) K/uL Neut # (Auto) 2.87 (1.4-6.5) K/uL Lymph # (Auto) 1.42 (1.2-3.4) K/uL [place] # (Auto) 0.52 (0.11-0.59) K/uL Eos # (Auto) 0.16 (0-0.5) K/uL Baso # (Auto) 0.03 (0-0.2) K/uL PT 12.8 H (9.0-12.0) Seconds INR 1.3 H (0.9-1.1) Sodium (136-145) mmol/L Potassium (3.5-5.1) mmol/L Chloride (98-107) mmol/L Carbon Dioxide (21-32) mmol/L Anion Gap (3-11) BUN (7-18) mg/dl Creatinine (0.6-1.2) mg/dl Est Cr Clr Drug Dosing ml/min Est GFR ( Amer) Est GFR (Non-Af Amer) BUN/Creatinine Ratio (10-20) Glucose (70-99) mg/dl POC Glucose 158 H (70-99) Calcium (8.5-10.1) mg/dl Magnesium (1.8-2.4) mg/dl Total Bilirubin (0.2-1) mg/dl AST (15-37) U/L ALT (12-78) U/L Alkaline Phosphatase (45-117) U/L Ammonia (11-32) umol/L Troponin I (0-0.045) ng/ml Total Protein (6.4-8.2) gm/dl Albumin (3.4-5.0) gm/dl Globulin (2.5-4.0) gm/dl Albumin/Globulin Ratio (0.9-2) TSH (0.300-4.500) uIu/ml Urine Color Urine Appearance (Clear) Urine pH (4.5-7.5) Ur Specific [place] (1.000-1.030) Urine Protein (Negative) Urine Glucose (UA) (Negative) Urine Ketones (Negative) Urine Blood (Negative) Urine Nitrite (Negative) Urine Bilirubin (Negative) Urine Urobilinogen (Negative) Ur Leukocyte Esterase (Negative) Urine WBC (Auto) (0-5) /hpf Urine RBC (Auto) (0-4) /hpf U Hyaline Cast (Auto) (0-5) /lpf U Epithel Cells (Auto) (0-5) /lpf Urine Bacteria (Auto) (Negative) Ur Renal Epithelial Cell (0-5) /lpf Amorphous Sediment (None Prsent) 04/05/19 04/05/19 04/05/19 Range/Units 17:45 17:45 18:53 WBC (4.8-10.8) K/uL RBC (4.2-5.4) M/uL Hgb (12.0-16.0) g/dL Hct (37-47) % MCV (80-100) fL MCH (25-34) pg MCHC (32-36) g/dL RDW Std Deviation (36.4-46.3) fL RDW Coeff of Irina (11.5-14.5) % Plt Count (130-400) K/uL MPV (7.4-10.4) fL Immature Gran % (Auto) % Neut % (Auto) % Lymph % (Auto) % [place] % (Auto) % Eos % (Auto) % Baso % (Auto) % Immature Gran # (Auto) (0.00-0.02) K/uL Neut # (Auto) (1.4-6.5) K/uL Lymph # (Auto) (1.2-3.4) K/uL [place] # (Auto) (0.11-0.59) K/uL Eos # (Auto) (0-0.5) K/uL Baso # (Auto) (0-0.2) K/uL PT (9.0-12.0) Seconds INR (0.9-1.1) Sodium 136 (136-145) mmol/L Potassium 3.8 (3.5-5.1) mmol/L Chloride 110 H (98-107) mmol/L Carbon Dioxide 22 (21-32) mmol/L Anion Gap 4.0 (3-11) BUN 9 (7-18) mg/dl Creatinine 0.51 L (0.6-1.2) mg/dl Est Cr Clr Drug Dosing 139.0 ml/min Est GFR ( Amer) 127.2 Est GFR (Non-Af Amer) 109.8 BUN/Creatinine Ratio 18.3 (10-20) Glucose 150 H (70-99) mg/dl POC Glucose (70-99) Calcium 8.2 L (8.5-10.1) mg/dl Magnesium 1.6 L (1.8-2.4) mg/dl Total Bilirubin 1.9 H (0.2-1) mg/dl AST 50 H (15-37) U/L ALT 76 (12-78) U/L Alkaline Phosphatase 162 H (45-117) U/L Ammonia 153.0 H (11-32) umol/L Troponin I < 0.015 (0-0.045) ng/ml Total Protein 6.3 L (6.4-8.2) gm/dl Albumin 3.1 L (3.4-5.0) gm/dl Globulin 3.2 (2.5-4.0) gm/dl Albumin/Globulin Ratio 1.0 (0.9-2) TSH 0.366 (0.300-4.500) uIu/ml Urine Color Dark Yellow Urine Appearance Cloudy A (Clear) Urine pH 8.5 H (4.5-7.5) Ur Specific [place] 1.013 (1.000-1.030) Urine Protein Negative (Negative) Urine Glucose (UA) Negative (Negative) Urine Ketones Negative (Negative) Urine Blood Negative (Negative) Urine Nitrite Negative (Negative) Urine Bilirubin Negative (Negative) Urine Urobilinogen Negative (Negative) Ur Leukocyte Esterase Negative (Negative) Urine WBC (Auto) 1-5 (0-5) /hpf Urine RBC (Auto) 0-4 (0-4) /hpf U Hyaline Cast (Auto) 1-5 (0-5) /lpf U Epithel Cells (Auto) >30 H (0-5) /lpf Urine Bacteria (Auto) Negative (Negative) Ur Renal Epithelial Cell 10-20 H (0-5) /lpf Amorphous Sediment Present A (None Prsent) Imaging Data Radiologist's Impression: Radiology results as stated below per my review and the radiologist's interpretation: CT head/brain wo con CLINICAL HISTORY: 53 years-old Female presenting with AMS. TECHNIQUE: Multidetector CT imaging of the head was performed without the use of intravenous contrast. IV contrast: None. One or more dose lowering techniques were used consistent with the principles of ALARA (as low as reasonably ach ievable), including automatic exposure control, mA or kV adjustment to individual patient size, and/or use of iterative reconstruction. COMPARISON: 12/31/2018. CT DOSE (mGy.cm): The estimated cumulative dose is 1228.53 mGy.cm. FINDINGS: Newborn Photographer topogram: Unremarkable. Ventricles and sulci normal in size. No hemorrhage. Brain parenchyma normal in appearance with preserved jorgensen-white differentiation. No acute territorial infarct. No mass effect or midline shift. No extra-axial fluid collection. Paranasal sinuses and mastoid air cells clear. Calvarium intact. IMPRESSION: 1. No acute intracranial abnormality. ACT 112: Negative or not required by law. Electronically signed by: Davis Gallegos M.D. 04/05/2019 6:26 PM XR chest 1V portable CLINICAL HISTORY: 53 years-old Female presenting with weakness. TECHNIQUE: Portable upright AP view of the chest was obtained. COMPARISON: 02/09/2019. FINDINGS: Right internal jugular Mediport terminates in the lower SVC. Cardiac silhouette mildly enlarged as on prior exam. Low lung volumes with hypoventilatory changes including mild pulmonary vascular prominence. Obscuration of the left hemidiaphragm is new from prior. No other focal opacity. No large effusion or pneumothorax. Internal fixation of the left humerus. Cholecystectomy clips noted. IMPRESSION: 1. Low lung volumes with hypoventilatory changes and suspected left basilar atelectasis. 2. Mild cardiomegaly. ACT 112: Negative or not required by law. Electronically signed by: Davis Gallegos M.D. 04/05/2019 5:56 PM ECG Data Attestation: I personally reviewed and interpreted this ECG as follows: Indication: + weakness Rate (beats per minute): 90 Rhythm: + normal sinus ECG [place]: + Normal ECG ST segments: no ST depression and no ST elevation Blood Pressure Blood Pressure Findings: Elevated blood pressure Blood Pressure Disposition: further management by hospitalist ISIDRA Narrative The patient is a 53 year old white female w/ PMHx of seizure disorder, GERD, type 2 diabetes, cirrhosis, migraines, hypothyroidism, asthma and UTI who pre sents to the ED w/ CC of worsening lethargy beginning 1 day ago. Patient was seen and evaluated the bedside and due to concern for worsening mental status. The history is solely obtained from the patient's . The patient does have a known history of hyperammonemia but the patient's states that she has been compliant with her medications. The patient is not currently using any narcotic or pain medications per the patient's . The patient has a very limited exam and will not open eyes but does respond to painful stimuli. Does not follow commands and is currently not speaking. The patient did a bladder completed on with a CT of the head and EKG. EKG is unremarkable. CT of the head is negative. Chest x-ray shows some cardiomegaly. Patient does not appear to be volume overloaded and is not hypoxic. Patient is chronic and stable anemia. Mild thrombocytopenia is noted but this is chronic and unchanged. Patient's ammonia is very elevated at 153. Given the patient's degree of unresponsiveness an NG was placed and the patient was subsequently having lactulose. I did speak with the on-call hospitalist agreed to further evaluate treat the patient. Patient was admitted to the medicine service. Impression & Plan Hyperammonemia, Altered consciousness, Anemia, Hypocalcemia, Hypomagnesemia, Thrombocytopenia Discharge Plan Visit Data *Final* Discharge Date/Time: 04/05/19 22:17 Chief Complaint: Lethargic Stated Complaint: INCONTINENT, BARELY RESPONSIVE ED Provider: Alexis Jones Discharge Problem: Hyperammonemia, Altered consciousness, Anemia, Hypocalcemia, Hypomagnesemia, Thrombocytopenia Patient Disposition: Admitted As Inpatient Discharge Instructions Interventions: ED Discharge Assessment Last Done: 04/05/19 22:17 Discharge Problem: Anemia Qualifiers: Anemia type: unspecified type Qualified Code(s): D64.9 - Anemia, unspecified The scribe's documentation has been prepared under my direction and personally reviewed by me in its entirety. I confirm that the note above accurately reflects all work, treatment, procedures, and medical decision making performed by me.
[2019-04-05] MEDS: TOPIRAMATE 100 MG TAB PO SCH (21:46)
[2019-04-05] MEDS ORDERED: GLUCOSE 40% GEL 15 GM TUBE PO PRN (23:09)
[2019-04-05] MEDS ORDERED: CARBOHYDRATES FOR HYPOGLYCEMIA PO PRN (23:09)
[2019-04-05] MEDS ORDERED: INSULIN ASPART 100 UNITS/ML 3 ML PEN SC SCH (23:09)
[2019-04-05] MEDS ORDERED: DEXTROSE 50% 50 ML SYRINGE IV PRN (23:09)
[2019-04-05] MEDS ORDERED: GLUCOSE 10 TABS/TUBE PO PRN (23:09)
[2019-04-05] MEDS ORDERED: ONDANSETRON INJ 2 MG/ML 2 ML VIAL IV PRN (23:09)
[2019-04-05] MEDS ORDERED: GLUCAGON FOR INJ 1 MG VIAL SQ PRN (23:09)
[2019-04-05] MEDS: ENOXAPARIN INJ 30 MG/0.3 ML SYR SQ SCH (23:51)
[2019-04-05] MEDS: LACTULOSE SYRUP 30 GM/45 ML UDP NG SCH (23:52)
[2019-04-06] MEDS ORDERED: HEPARIN 100 UNIT/ML 5ML FLUSH FLUSH PRN (01:04)
[2019-04-06] MEDS ORDERED: Nursing to Pharmacy Communication ONE (05:53)
[2019-04-06 06:35] LABS: Hematocrit (blood only) 30.4 % (37-47); Hemoglobin 11.2 g/dL (12.0-16.0); Mean Corpuscular Hemoglobin 37.6 pg (25-34); Mean Corpuscular Hgb Conc 36.8 g/dL (32-36); RDW Standard Deviation 51.8 fL (36.4-46.3); Red Blood Count 2.98 M/uL (4.2-5.4); White Blood Count 5.16 K/uL (4.8-10.8)
[2019-04-06] MEDS: INSULIN ASPART 100 UNITS/ML 3 ML PEN SC SCH ×5 (06:36→21:57)
[2019-04-06 06:44] LABS: INR 1.3 (0.9-1.1); Partial Thromboplastin Ratio 1.3; Prothrombin Time 13.2 Seconds (9.0-12.0)
[2019-04-06 06:47] LABS: Mean Platelet Volume 9.8 fL (7.4-10.4); Platelet Count 87 K/uL (130-400)
[2019-04-06 06:54] LABS: Estimated Average Glucose 91 mg/dl; Hemoglobin A1C 4.8 % (4.5-5.6)
[2019-04-06 07:03] LABS: BUN Creatinine Ratio 15.5 (10-20); Calcium 8.2 mg/dl (8.5-10.1); Creatinine Clr Calc Pharmacy 126.6 ml/min; Est GFR (African American) 124.1; Est GFR (Non-African American) 107.1; Potassium 3.5 mmol/L (3.5-5.1)
[2019-04-06 07:06] LABS: Bilirubin,Total 2.2 mg/dl (0.2-1); Globulin 2.9 gm/dl (2.5-4.0); Total Protein 5.9 gm/dl (6.4-8.2)
[2019-04-06 07:14] LABS: Basophils # (auto) 0.03 K/uL (0-0.2); Basophils % (auto) 0.6 %; Eosinophils # (auto) 0.12 K/uL (0-0.5); Eosinophils % (auto) 2.3 %; Lymphocytes # (auto) 1.41 K/uL (1.2-3.4); Lymphocytes % (auto) 27.3 %; Monocytes # (auto) 0.48 K/uL (0.11-0.59); Monocytes % (auto) 9.3 %; Neutrophils # (auto) 3.12 K/uL (1.4-6.5); Neutrophils % (auto) 60.5 %
[2019-04-06] MEDS: TOPIRAMATE 100 MG TAB PO SCH ×2 (08:05→21:29)
[2019-04-06] MEDS: LACTULOSE SYRUP 30 GM/45 ML UDP NG SCH ×2 (08:05→12:09)
[2019-04-06] MEDS ORDERED: OXcarbazepine 150 MG TABLET NG SCH (09:00)
--- NOTE | 2019-04-06 09:42 | Electrocardiogram Report ---
Test Reason : Blood Pressure : / mmHG Vent. Rate : 090 BPM Atrial Rate : 090 BPM P-R Int : 178 ms QRS Dur : 096 ms QT Int : 374 ms P-R-T Axes : 067 -09 032 degrees QTc Int : 457 ms Normal sinus rhythm Normal ECG When compared with ECG of 09-FEB-2019 19:12, No significant change was found Confirmed by Hemant Garcia ([id number]) on 04/06/2019 9:41:48 AM Referred By: REFERRED SELF Confirmed By:Hemant Garcia
--- NOTE | 2019-04-06 13:49 | Hospitalist Progress Note ---
Date of Service April 06, 2019 Assessment & Plan (1) Hepatic encephalopathy: Hepatic encephalopathy/hyperammonemia- Ammonia level 153 upon admission. encephalopathy improved rapidly, patient AAOX3 today NGT removed continue Lactulose QID for now will get PT/OT to see (2) Hyperammonemia: resolved with Lactulose (3) Altered consciousness: Secondary to hyperammonemia and hepatic encephalopathy resolved today (4) Seizure disorder: Seizure disorder/major depressive disorder with psychotic features/borderline personality disorder/parkinsonism- continue Keppra 1500mg BID continue oxcarbazepine to 300 in the a.m. and 600 mg in the p.m continue topiramate 100 mg PO BID no seizure activity (5) Major depressive disorder with psychotic features: See above mood stable today (6) Borderline personality disorder: See above (7) Parkinsonism: See above (8) Hypothyroidism: On levothyroxine 75 mcg every morning. (9) Asthma: DuoNebs every 4 hours as needed (10) 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 type 2 in nonobese: Novolog SS will transfer to medical floor get PT/OT soy, could be ready for d/c tomorrow afternoon Subjective patient woke up late this morning oriented x 3, she is hungry, breathing well, no pain she would like to get OOB into a chair updated her at the bedside no chest pain, no dyspnea, no fever, no chills reviewed labs, WBC normal, Hb 11, Cr 0.55 Review of Systems Review of Systems: All systems reviewed & are unremarkable except as noted in HPI & below Constitutional: + fatigue and + weakness; no fever, no chills and no sweats Respiratory: no cough, no dyspnea and no wheezing Cardiovascular: no chest pain, no palpitations, no syncope and no edema Gastrointestinal: no abdominal pain, no nausea, no vomiting, no constipation and no diarrhea/loose stools Physical Exam Constitutional: WD/WN, vitals as above Eyes: PERRL, conjunctivae normal, anicteric sclerae ENMT: external ear and nose normal, oropharynx normal Neck: trachea midline, no thyromegaly Respiratory: normal respiratory effort, lungs clear to auscultation Cardiovascular: RRR, no murmur, no edema Gastrointestinal (Abdomen): normal bowel sounds, soft, nontender, no hepatosplenomegaly Musculoskeletal: no cyanosis or clubbing, extremities motor strength 5/5 Skin: no rashes, warm and dry Neurologic: patellar DTR's 2+ bilat, sensation intact and PERRL, EOMI, accommodation nl, no face palsy, no dysarthria Psychiatric: A+Ox3, euthymic affect Lymphatic: no cervical or axillary lymphadenopathy Results & Data Vital Signs (Past 12 Hours) Vital Signs Temp Pulse Resp BP Pulse Ox 04/06/19 11:49 36.9 C 76 16 128/76 95 04/06/19 07:54 36.5 C 88 18 145/63 H 96 04/06/19 04:00 36.8 C 89 16 147/73 H 97 Laboratory Results Laboratory Results - last 24 hr 04/05/19 04/05/19 04/05/19 17:23 17:45 17:45 WBC 5.00 RBC 3.12 L Hgb 11.5 L Hct 31.9 L MCV 102.2 H MCH 36.9 H MCHC 36.1 H RDW Std Deviation 52.6 H RDW Coeff of Irina 14.2 Plt Count 86 L MPV 10.2 Immature Gran % (Auto) 0.0 Neut % (Auto) 57.4 Lymph % (Auto) 28.4 [place] % (Auto) 10.4 Eos % (Auto) 3.2 Baso % (Auto) 0.6 Immature Gran # (Auto) 0.00 Neut # (Auto) 2.87 Lymph # (Auto) 1.42 [place] # (Auto) 0.52 Eos # (Auto) 0.16 Baso # (Auto) 0.03 PT 12.8 H INR 1.3 H APTT PTT Ratio Sodium Potassium Chloride Carbon Dioxide Anion Gap BUN Creatinine Est Cr Clr Drug Dosing Est GFR ( Amer) Est GFR (Non-Af Amer) BUN/Creatinine Ratio Glucose POC Glucose 158 H Estimat Average Glucose Hemoglobin A1c Calcium Magnesium Total Bilirubin AST ALT Alkaline Phosphatase Ammonia Troponin I Total Protein Albumin Globulin Albumin/Globulin Ratio TSH Urine Color Urine Appearance Urine pH Ur Specific [place] Urine Protein Urine Glucose (UA) Urine Ketones Urine Blood Urine Nitrite Urine Bilirubin Urine Urobilinogen Ur Leukocyte Esterase Urine WBC (Auto) Urine RBC (Auto) U Hyaline Cast (Auto) U Epithel Cells (Auto) Urine Bacteria (Auto) Ur Renal Epithelial Cell Amorphous Sediment 04/05/19 04/05/19 04/05/19 17:45 17:45 18:53 WBC RBC Hgb Hct MCV MCH MCHC RDW Std Deviation RDW Coeff of Irina Plt Count MPV Immature Gran % (Auto) Neut % (Auto) Lymph % (Auto) [place] % (Auto) Eos % (Auto) Baso % (Auto) Immature Gran # (Auto) Neut # (Auto) Lymph # (Auto) [place] # (Auto) Eos # (Auto) Baso # (Auto) PT INR APTT PTT Ratio Sodium 136 Potassium 3.8 Chloride 110 H Carbon Dioxide 22 Anion Gap 4.0 BUN 9 Creatinine 0.51 L Est Cr Clr Drug Dosing 139.0 Est GFR ( Amer) 127.2 Est GFR (Non-Af Amer) 109.8 BUN/Creatinine Ratio 18.3 Glucose 150 H POC Glucose Estimat Average Glucose Hemoglobin A1c Calcium 8.2 L Magnesium 1.6 L Total Bilirubin 1.9 H AST 50 H ALT 76 Alkaline Phosphatase 162 H Ammonia 153.0 H Troponin I < 0.015 Total Protein 6.3 L Albumin 3.1 L Globulin 3.2 Albumin/Globulin Ratio 1.0 TSH 0.366 Urine Color Dark Yellow Urine Appearance Cloudy A Urine pH 8.5 H Ur Specific [place] 1.013 Urine Protein Negative Urine Glucose (UA) Negative Urine Ketones Negative Urine Blood Negative Urine Nitrite Negative Urine Bilirubin Negative Urine Urobilinogen Negative Ur Leukocyte Esterase Negative Urine WBC (Auto) 1-5 Urine RBC (Auto) 0-4 U Hyaline Cast (Auto) 1-5 U Epithel Cells (Auto) >30 H Urine Bacteria (Auto) Negative Ur Renal Epithelial Cell 10-20 H Amorphous Sediment Present A 04/05/19 04/06/19 04/06/19 23:22 00:03 06:09 WBC RBC Hgb Hct MCV MCH MCHC RDW Std Deviation RDW Coeff of Irina Plt Count MPV Immature Gran % (Auto) Neut % (Auto) Lymph % (Auto) [place] % (Auto) Eos % (Auto) Baso % (Auto) Immature Gran # (Auto) Neut # (Auto) Lymph # (Auto) [place] # (Auto) Eos # (Auto) Baso # (Auto) PT INR APTT PTT Ratio Sodium Potassium Chloride Carbon Dioxide Anion Gap BUN Creatinine Est Cr Clr Drug Dosing Est GFR ( Amer) Est GFR (Non-Af Amer) BUN/Creatinine Ratio Glucose POC Glucose 158 H 130 H Estimat Average Glucose Hemoglobin A1c Calcium Magnesium 1.5 L Total Bilirubin AST ALT Alkaline Phosphatase Ammonia Troponin I Total Protein Albumin Globulin Albumin/Globulin Ratio TSH Urine Color Urine Appearance Urine pH Ur Specific [place] Urine Protein Urine Glucose (UA) Urine Ketones Urine Blood Urine Nitrite Urine Bilirubin Urine Urobilinogen Ur Leukocyte Esterase Urine WBC (Auto) Urine RBC (Auto) U Hyaline Cast (Auto) U Epithel Cells (Auto) Urine Bacteria (Auto) Ur Renal Epithelial Cell Amorphous Sediment 04/06/19 04/06/19 04/06/19 06:21 06:21 06:21 WBC 5.16 RBC 2.98 L Hgb 11.2 L Hct 30.4 L MCV 102.0 H MCH 37.6 H MCHC 36.8 H RDW Std Deviation 51.8 H RDW Coeff of Irina 14.0 Plt Count 87 L MPV 9.8 Immature Gran % (Auto) 0.0 Neut % (Auto) 60.5 Lymph % (Auto) 27.3 [place] % (Auto) 9.3 Eos % (Auto) 2.3 Baso % (Auto) 0.6 Immature Gran # (Auto) 0.00 Neut # (Auto) 3.12 Lymph # (Auto) 1.41 [place] # (Auto) 0.48 Eos # (Auto) 0.12 Baso # (Auto) 0.03 PT 13.2 H INR 1.3 H APTT 35.0 H PTT Ratio 1.3 Sodium 140 Potassium 3.5 Chloride 112 H Carbon Dioxide 20 L Anion Gap 8.0 BUN 9 Creatinine 0.55 L Est Cr Clr Drug Dosing 126.6 Est GFR ( Amer) 124.1 Est GFR (Non-Af Amer) 107.1 BUN/Creatinine Ratio 15.5 Glucose 129 H POC Glucose Estimat Average Glucose Hemoglobin A1c Calcium 8.2 L Magnesium Total Bilirubin 2.2 H AST 52 H ALT 72 Alkaline Phosphatase 125 H Ammonia Troponin I Total Protein 5.9 L Albumin 3.0 L Globulin 2.9 Albumin/Globulin Ratio 1.0 TSH Urine Color Urine Appearance Urine pH Ur Specific [place] Urine Protein Urine Glucose (UA) Urine Ketones Urine Blood Urine Nitrite Urine Bilirubin Urine Urobilinogen Ur Leukocyte Esterase Urine WBC (Auto) Urine RBC (Auto) U Hyaline Cast (Auto) U Epithel Cells (Auto) Urine Bacteria (Auto) Ur Renal Epithelial Cell Amorphous Sediment 04/06/19 04/06/19 06:21 12:01 WBC RBC Hgb Hct MCV MCH MCHC RDW Std Deviation RDW Coeff of Irina Plt Count MPV Immature Gran % (Auto) Neut % (Auto) Lymph % (Auto) [place] % (Auto) Eos % (Auto) Baso % (Auto) Immature Gran # (Auto) Neut # (Auto) Lymph # (Auto) [place] # (Auto) Eos # (Auto) Baso # (Auto) PT INR APTT PTT Ratio Sodium Potassium Chloride Carbon Dioxide Anion Gap BUN Creatinine Est Cr Clr Drug Dosing Est GFR ( Amer) Est GFR (Non-Af Amer) BUN/Creatinine Ratio Glucose POC Glucose 147 H Estimat Average Glucose 91 Hemoglobin A1c 4.8 Calcium Magnesium Total Bilirubin AST ALT Alkaline Phosphatase Ammonia Troponin I Total Protein Albumin Globulin Albumin/Globulin Ratio TSH Urine Color Urine Appearance Urine pH Ur Specific [place] Urine Protein Urine Glucose (UA) Urine Ketones Urine Blood Urine Nitrite Urine Bilirubin Urine Urobilinogen Ur Leukocyte Esterase Urine WBC (Auto) Urine RBC (Auto) U Hyaline Cast (Auto) U Epithel Cells (Auto) Urine Bacteria (Auto) Ur Renal Epithelial Cell Amorphous Sediment Medications Administered Current Inpatient Medications Dextrose (Dextrose 50%) 25 - 50 ml IV UD PRN; Protocol PRN Reason: Hypoglycemia Protocol Stop: 05/05/19 23:08 Enoxaparin Sodium (Lovenox) 30 mg SQ Q24H SHEBA Stop: 05/05/19 22:59 Last Admin: 04/05/19 23:51 Dose: 30 mg Documented by: Glucagon (Glucagen) 1 mg SQ UD PRN; Protocol PRN Reason: Hypoglycemia Protocol Stop: 05/05/19 23:08 Glucose (Dex4 Glucose) 4 - 8 tabs PO UD PRN; Protocol PRN Reason: Hypoglycemia Protocol Stop: 05/05/19 23:08 Glucose (Glucose 40%) 15 - 30 gm PO UD PRN; Protocol PRN Reason: Hypoglycemia Protocol Stop: 05/05/19 23:08 Heparin Sodium (Porcine) (Heparin Sod 100 Unit/Ml Flush) 5 ml FLUSH PRN PRN PRN Reason: Flush Stop: 05/06/19 01:14 Insulin Aspart (Novolog Flexpen) 0 units SC ACHS SHEBA Stop: 05/06/19 16:29 Lactulose (Chronulac) 30 gm PO QID SHEBA Stop: 05/06/19 16:59 Levetiracetam (Keppra) 1,500 mg PO BID SHEBA Stop: 05/06/19 20:59 Miscellaneous (Carbohydrates For Hypoglycemia) 15 - 30 gm PO UD PRN PRN Reason: Hypoglycemia Protocol Stop: 05/05/19 23:08 Ondansetron HCl (Zofran) 4 mg IV Q6H PRN PRN Reason: Nausea Stop: 05/05/19 23:08 Oxcarbazepine (Trileptal) 300 mg PO QAM SHEBA Stop: 05/07/19 08:59 Oxcarbazepine (Trileptal) 600 mg PO QPM SHEBA Stop: 05/06/19 20:59 Topiramate (Topamax) 100 mg PO BID SHEBA Stop: 05/05/19 20:59 Last Admin: 04/06/19 08:05 Dose: 100 mg Documented by: PG Care Time/CCT Total # of Minutes Spent Total Time Spent with Patient: Total time spent is greater than 50% in coordination of care (as documented) at patient's floor/unit and/or counseling patient: (1) Asthma Asthma complication type: unspecified Asthma persistence: unspecified Asthma severity: unspecified severity Qualified Code(s): J45.909 - Unspecified asthma, uncomplicated
[2019-04-06] MEDS: LACTULOSE SYRUP 30 GM/45 ML UDP PO SCH ×2 (17:08→21:32)
[2019-04-06] MEDS ORDERED: OXcarbazepine 150 MG TABLET PO SCH (21:00)
[2019-04-06] MEDS ORDERED: NON-FORMULARY MEDICATION (Melatonin 15 MG) PO SCH (21:00)
[2019-04-06] MEDS: levETIRAcetam 500 MG TAB PO SCH (21:29)
[2019-04-06] MEDS: RIFAXIMIN 550 MG TABLET PO SCH (21:32)
[2019-04-06] MEDS: ENOXAPARIN INJ 30 MG/0.3 ML SYR SQ SCH (22:17)
[2019-04-07 06:04] LABS: Hematocrit (blood only) 30.3 % (37-47); Mean Corpuscular Hemoglobin 37.4 pg (25-34); Mean Corpuscular Hgb Conc 36.3 g/dL (32-36); Mean Corpuscular Volume 103.1 fL (80-100); RDW Coefficient of Variation 14.2 % (11.5-14.5); RDW Standard Deviation 53.1 fL (36.4-46.3); Red Blood Count 2.94 M/uL (4.2-5.4); White Blood Count 4.99 K/uL (4.8-10.8)
[2019-04-07 06:11] LABS: Mean Platelet Volume 10.3 fL (7.4-10.4); Platelet Count 87 K/uL (130-400)
[2019-04-07 06:24] LABS: INR 1.3 (0.9-1.1); Prothrombin Time 13.5 Seconds (9.0-12.0)
[2019-04-07] MEDS ORDERED: LEVOTHYROXINE SODIUM 75 MCG TABLET PO SCH (06:30)
[2019-04-07] MEDS ORDERED: COUGH DROP (SUGAR FREE) LOZ 24 LOZ/1 BOX BUCCAL ONE (06:31)
[2019-04-07 06:37] LABS: Basophils # (auto) 0.02 K/uL (0-0.2); Basophils % (auto) 0.4 %; Eosinophils # (auto) 0.13 K/uL (0-0.5); Eosinophils % (auto) 2.6 %; Immature Granulocytes # (auto) 0.01 K/uL (0.00-0.02); Immature Granulocytes % (auto) 0.2 %; Lymphocytes # (auto) 1.59 K/uL (1.2-3.4); Lymphocytes % (auto) 31.9 %; Monocytes # (auto) 0.58 K/uL (0.11-0.59); Monocytes % (auto) 11.6 %; Neutrophils # (auto) 2.66 K/uL (1.4-6.5); Neutrophils % (auto) 53.3 %; RBC Morphology Unremarkable
[2019-04-07 06:40] LABS: Albumin Level 2.8 gm/dl (3.4-5.0); BUN Creatinine Ratio 19.9 (10-20); Calcium 7.6 mg/dl (8.5-10.1); Creatinine Clr Calc Pharmacy 136.2 ml/min; Est GFR (African American) 127.2; Est GFR (Non-African American) 109.8; Potassium 3.4 mmol/L (3.5-5.1)
[2019-04-07 06:42] LABS: Albumin Globulin Ratio 0.9 (0.9-2); Total Protein 5.8 gm/dl (6.4-8.2)
[2019-04-07] MEDS: LACTULOSE SYRUP 30 GM/45 ML UDP PO SCH ×2 (08:27→12:35)
[2019-04-07] MEDS: TOPIRAMATE 100 MG TAB PO SCH (08:28)
[2019-04-07] MEDS: levETIRAcetam 500 MG TAB PO SCH (08:30)
[2019-04-07] MEDS: RIFAXIMIN 550 MG TABLET PO SCH (08:30)
[2019-04-07] MEDS: INSULIN ASPART 100 UNITS/ML 3 ML PEN SC SCH ×2 (08:45→12:35)
[2019-04-07] MEDS ORDERED: PANTOprazole 40 MG TAB PO SCH (09:00)
[2019-04-07] MEDS ORDERED: FAMOTIDINE 40 MG TABLET PO SCH (09:00)
[2019-04-07] MEDS ORDERED: OXcarbazepine 150 MG TABLET PO SCH (09:00)
[2019-04-07] MEDS ORDERED: SPIRONOLACTONE 25 MG TAB PO SCH (09:00)
--- NOTE | 2019-04-07 14:18 | Discharge Summary ---
Date of Service April 07, 2019 Admission HPI Per Admitting Provider The patient is a 53-year-old female with a past medical history including diabetes mellitus type 2, liver cirrhosis, asthma, GERD, seizure disorder, migraines, parkinsonism, anemia, thrombocytopenia, hypersplenism and hypothyroidism, who presents to the emergency department barely responsive state, lethargic, urinary incontinence and ambulatory dysfunction that per the began the previous evening. She has not had any medication since that time. Both the HPI and review of systems are severely limited due to the patient's nonresponsive state, and are primarily supplied by the . Principal Diagnosis Acute hepatic encephalopathy Discharge Exam Constitutional WD/WN, vitals as above Eyes PERRL, conjunctivae normal, anicteric sclerae ENMT external ear and nose normal, oropharynx normal Neck trachea midline, no thyromegaly Respiratory normal respiratory effort, lungs clear to auscultation Cardiovascular RRR, no murmur, no edema Gastrointestinal (Abdomen) normal bowel sounds, soft, nontender, no hepatosplenomegaly Musculoskeletal no cyanosis or clubbing, extremities motor strength 5/5 Skin no rashes, warm and dry Neurologic patellar DTR's 2+ bilat, sensation intact and PERRL, EOMI, accommodation nl, no face palsy, no dysarthria Psychiatric A+Ox3, euthymic affect Lymphatic no cervical or axillary lymphadenopathy Discharge Data Allergies Allergy/AdvReac Type Severity Reaction Status Date / Time metronidazole Allergy Severe SEIZURE Verified 04/05/19 17:28 tramadol Allergy Severe SEIZURES Verified 04/05/19 17:28 amoxicillin Allergy Intermediate HIVES; Has Verified 04/05/19 17:28 tolerated cephalosporins (Rocephin, Ceftin,Keflex baclofen Allergy Intermediate RASH Verified 04/05/19 17:28 butalbital Allergy Intermediate HIVES Verified 04/05/19 17:28 cat dander Allergy Intermediate Hives Verified 04/05/19 17:28 ceftriaxone [From Rocephin] Allergy Intermediate Hives Verified 04/05/19 17:28 clarithromycin Allergy Intermediate RASH Verified 04/05/19 17:28 clavulanic acid Allergy Intermediate Diarrhea Verified 04/05/19 17:28 dicyclomine Allergy Intermediate HIVES Verified 04/05/19 17:28 dog dander Allergy Intermediate Hives Verified 04/05/19 17:28 horse dander Allergy Intermediate Hives Verified 04/05/19 17:28 Penicillins Allergy Intermediate RASH; has Verified 04/05/19 17:28 tolerated cephs (Rocephin, Keflex, Ceftin) pollen extracts Allergy Intermediate Hives Verified 04/05/19 17:28 Tetracyclines Allergy Intermediate DOXYCYCLINE Verified 04/05/19 17:28 -HIVES adhesive Allergy Mild RASH, Verified 04/05/19 17:28 DUODERM=RED,ITCHY grape Allergy Mild Nausea Verified 04/05/19 17:28 sulindac Allergy Mild ALLERGY Verified 04/05/19 17:28 LISTED "CLONDORAL"--HIVES azithromycin Allergy Unknown Verified 04/05/19 17:28 Cephalosporins AdvReac Severe TURNS Verified 04/05/19 17:28 STOOL VERY DARK furosemide AdvReac Severe HIVES Verified 04/05/19 17:28 metoclopramide AdvReac Severe SEIZURES Verified 04/05/19 17:28 cefdinir AdvReac Intermediate Diarrhea Verified 04/05/19 17:28 blueberry AdvReac Mild STOMACH Verified 04/05/19 17:28 PAIN celecoxib AdvReac Mild HIVES Verified 04/05/19 17:28 Consultations 04/05/19 19:40 ED Decision to Admit Stat 04/05/19 23:09 Consult Case Management - Discharge Planning Routine Ordered Studies 04/05/19 17:14 CT head/brain wo con Stat Hospital Course (1) Hepatic encephalopathy: Hepatic encephalopathy/hyperammonemia- Ammonia level 153 upon admission. encephalopathy resolved completely, patient AAOX3 on discharge NGT removed day prior to discharge treated with Lactulose QID while hospitalized cleared to go home by PT/OT increased Lactulose from daily to BID on discharge stressed to patient the need for her to have 2-3 BM a day to make sure the ammonia level is controlled went home with , care givers (2) Hyperammonemia: resolved with Lactulose (3) Altered consciousness: Secondary to hyperammonemia and hepatic encephalopathy resolved today (4) Seizure disorder: Seizure disorder/major depressive disorder with psychotic features/borderline personality disorder/parkinsonism- continue Keppra 1500mg BID continue oxcarbazepine to 300 in the a.m. and 600 mg in the p.m continue topiramate 100 mg PO BID no seizure activity (5) Major depressive disorder with psychotic features: See above mood stable today (6) Borderline personality disorder: See above (7) Parkinsonism: See above (8) Hypothyroidism: On levothyroxine 75 mcg every morning. (9) Asthma: DuoNebs every 4 hours as needed (10) 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 type 2 in nonobese: Novolog SS no hypoglycemic episodes Total Time Total Time Spent Total Time Spent (In Minutes): 31 minutes Total Time Includes: Examination of the Patient, Discharge Planning and Medication Reconciliation Discharge Plan Discharge Items Patient Disposition: Home - Self-Care Reason For Visit: HYPERRAMMONEMIA,HEPATIC ENCEPHALOPATHY Discharge Diagnosis: Hepatic encephalopathy Condition on Discharge: Good Goals: continue to improve strength and mobility improve nutrition make sure to take Lactulose as prescribed, want 2-3 bowel movements a day to keep ammonia low Activity: Resume your previous activity Non-emergency contact: Primary Care Provider Call non-emergency contact if: you have any medication questions, your symptoms worsen and you have a fever Follow-up/Referrals: Balaji Zaragoza DO [Primary Care Provider] - Diet: Carb Consistent or DM2 Addtl Attending Provider Instructions: Medications: - LACTULOSE: increased to 40mL twice a day, goal is to have 2-3 bowel movements a day Altered mental status, due to elevated ammonia level resolved, back to baseline by giving Lactulose four times a day via NG tube no signs of infection electrolytes stable recommend increasing lactulose to twice a day at home to prevent coming back to hospital if you are not having 2-3 bowel movements a day then you may need to increase Lactulose further to three times a day continue with home health aide to improve strength and mobility FOLLOW UP - call for appt with Dr. Zaragoza to be seen next week Pending Studies at Discharge: No Stand-Alone Forms: My [facility] [place] [employer], Smoking Cessation Medications and DC Order Prescriptions: Continued topiramate 100 mg tablet 100 mg PO BID Qty: 60 RF: 5 levetiracetam 750 mg tablet 1,500 mg PO BID 30 Days Qty: 120 RF: 2 pen needle, diabetic [BD Ultra-Fine Mini Pen Needle] 31 gauge x 3/16" needle See Rx Instructions .ROUTE .COMPLEX Qty: 100 RF: 0 Novolog Flexpen U-100 Insulin 100 unit/mL (3 mL) insulin pen See Rx Instructions SQ .COMPLEX RF: 0 Refresh Optive Advanced 0.5-1-0.5 % drops 1 drops OP BID RF: 0 melatonin 10 mg capsule 15 mg PO HS RF: 0 famotidine 40 mg tablet 40 mg PO DAILY RF: 0 Breo Ellipta 100-25 mcg/dose blister with device 1 puffs INH DAILY RF: 0 epinephrine [EpiPen 2-Garret] 0.3 mg/0.3 mL auto-injector 0.3 mg IM Q10M PRN (Reason: Anaphylaxis) RF: 0 multivitamin [Multiple Vitamins] Tablet 1 tab PO QDL RF: 0 levothyroxine 75 mcg Tablet 75 mcg PO QAM RF: 0 spironolactone 50 mg tablet 25 mg PO QAM RF: 0 albuterol sulfate 90 mcg/actuation HFA aerosol inhaler 2 puffs INH 6XD PRN (Reason: shortness of breath or wheezing) Qty: 8 RF: 0 zinc 50 mg Tablet 50 mg PO DAILY RF: 0 Tresiba FlexTouch U-100 100 unit/mL (3 mL) insulin pen 10 units subcut QAM RF: 0 ibuprofen 200 mg tablet 400 mg PO HS RF: 0 vitamin A 8,000 unit Capsule 8,000 unit PO QDL RF: 0 vitamin B complex Tablet 1 tab PO QDL RF: 0 cholecalciferol (vitamin D3) [Vitamin D3] 1,000 unit Capsule 1,000 unit PO QDL RF: 0 Probiotic 3 billion cell Capsule 0 mmu cells PO QDL RF: 0 polyethylene glycol 3350 [Miralax] 17 gram Powder In Packet 17 g PO QAM RF: 0 promethazine 25 mg tablet 25 mg PO Q6H PRN (Reason: sedation) Qty: 12 RF: 0 omeprazole 40 mg capsule,delayed release(DR/EC) 40 mg PO DAILY RF: 0 Xifaxan 550 mg tablet 550 mg PO BID RF: 0 cranberry 400 mg Capsule 400 mg PO DAILY RF: 0 oxcarbazepine 600 mg tablet 600 mg PO HS RF: 0 oxcarbazepine 300 mg tablet 300 mg PO QAM RF: 0 Changed lactulose 20 gram/30 mL solution 40 ml PO BID Qty: 3000 RF: 1 Discharge Orders: Discharge Order (Routine); Ordered 04/07/19 Ordered By: Serjio Suarez Admission Data Admit Date/Time: 04/05/19 20:32 Attending Provider: Serjio Suarez Admit Provider: Vince Osei Primary Care Provider: Balaji Zaragoza Other Providers: Vince Osei Other Interventions: Discharge Summary Assessment (RN) Last Done: 04/07/19 12:10 DC Date/Time DO NOT enter until pt leaves facility: 04/07/19 13:25
== END 2019-04-07 13:25 | disposition home or self-care (01) | DRG 442 ==
LOC: ED 16:16 → SUATTDRO 20:32 → 2S 20:32 → 4W 04-06 14:19

== ENCOUNTER 2019-05-23 09:11 | Inpatient (IN) ==
[2019-05-23] MEDS ORDERED: SODIUM CHLORIDE 0.9% 1000ML 500 ML IV ONE (09:46)
[2019-05-23 09:50] LABS: Hematocrit (blood only) 28.5 % (37-47); Hemoglobin 10.6 g/dL (12.0-16.0); Mean Corpuscular Hemoglobin 36.7 pg (25-34); Mean Corpuscular Hgb Conc 37.2 g/dL (32-36); Mean Corpuscular Volume 98.6 fL (80-100); RDW Coefficient of Variation 13.2 % (11.5-14.5); RDW Standard Deviation 47.9 fL (36.4-46.3); Red Blood Count 2.89 M/uL (4.2-5.4)
[2019-05-23 09:58] LABS: Alanine Aminotransferase 42 U/L (12-78); Albumin Level 2.8 gm/dl (3.4-5.0); Aspartate Aminotransferase 41 U/L (15-37); BUN Creatinine Ratio 16.2 (10-20); Blood Urea Nitrogen 7 mg/dl (7-18); Carbon Dioxide 21 mmol/L (21-32); Chloride 107 mmol/L (98-107); Creatinine Clr Calc Pharmacy 144.8 ml/min; Est GFR (African American) 133.6; Est GFR (Non-African American) 115.2; Glucose 139 mg/dl (70-99); Potassium 3.8 mmol/L (3.5-5.1); Sodium 135 mmol/L (136-145)
--- NOTE | 2019-05-23 10:01 | XRay Report ---
XR chest 1V portable CLINICAL HISTORY: weakness COMPARISON STUDY: 05/22/2019 1:28 PM FINDINGS: Mild cardiomegaly. Lungs are clear. Diaphragms are smooth. IMPRESSION: Mild cardiomegaly. No major change from the prior study. ACT 112: Negative or not required by law. The above report was generated using voice recognition software. It may contain grammatical, syntax or spelling errors. Electronically signed by: Kenroy Yates M.D. 05/23/2019 10:00 AM
[2019-05-23 10:04] LABS: Mean Platelet Volume 9.8 fL (7.4-10.4); Platelet Count 81 K/uL (130-400)
--- NOTE | 2019-05-23 10:06 | CT Scan Report ---
CT head/brain wo con CT DOSE: 1074.96 mGy.cm HISTORY: Pt c/O AMS TECHNIQUE: Multiaxial CT images of the head were performed without the use of intravenous contrast. A dose lowering technique was utilized adhering to the principles of ALARA. Comparison: 05/22/2019 Findings: The paranasal sinuses and mastoid air cells are clear. The calvarium and skull base are int act. The ventricles and sulci are within normal limits. There is no mass, hematoma, midline shift, or acute infarct. Impression: No acute intracranial abnormality. ACT 112: Negative or not required by law. The above report was generated using voice recognition software. It may contain grammatical, syntax or spelling errors. Electronically signed by: Kenroy Yates M.D. 05/23/2019 10:04 AM
[2019-05-23 10:09] LABS: Alkaline Phosphatase 163 U/L (45-117); Bilirubin,Total 1.6 mg/dl (0.2-1); Creatine Kinase 45 U/L (26-192); Creatine Kinase MB < 1.0 ng/ml (0.5-3.6); Globulin 2.9 gm/dl (2.5-4.0); Thyroid Stimulating Hormone 0.237 uIu/ml (0.300-4.500); Total Protein 5.7 gm/dl (6.4-8.2); Troponin I < 0.015 ng/ml (0-0.045)
[2019-05-23 10:34] LABS: Basophils # (auto) 0.05 K/uL (0-0.2); Basophils % (auto) 1.8 %; Eosinophils # (auto) 0.13 K/uL (0-0.5); Eosinophils % (auto) 4.6 %; Lymphocytes # (auto) 0.73 K/uL (1.2-3.4); Lymphocytes % (auto) 26.1 %; Monocytes # (auto) 0.22 K/uL (0.11-0.59); Monocytes % (auto) 7.9 %; Neutrophils # (auto) 1.67 K/uL (1.4-6.5); Neutrophils % (auto) 59.6 %; Ovalocytes 1+
[2019-05-23 11:54] LABS: Magnesium 1.5 mg/dl (1.8-2.4); Phosphorus 2.3 mg/dl (2.5-4.9)
--- NOTE | 2019-05-23 12:34 | History & Physical Report ---
Date of Service May 23, 2019 Assessment & Plan (1) Frequent falls: 1. Fall - patient with fall at home occurred during transfer. Abrasion on left forearm -X-ray left forearm -Fall precautions 2. Hepatic encephalopathy: Patient with persistently elevated ammonia level. Ammonia = 133 today. On exam patient is obtunded, not following commands. Continue Lactulose QID. May need NGT placement to deliver medications Continue rifaximin 550 mg p.o. twice daily 3. Cirrhosis: Patient with liver cirrhosis secondary to STEVE, portal hypertension. Patient follows with gastroenterology, last seen by Dr. Toledo on 04/20/19. HCV screening has been completed and is negative. AFP on 03/09/2019 = 2.6 -Check INR -Repeat LFTs in AM Continue Lactulose 1-3 times daily, titrate to 3-4 soft bowel movements per day. Continue Rifaximin 550 mg p.o. twice daily Continue zinc supplementation 50 mg daily Continue Aldactone for lower extremity edema -Low sodium diet as tolerated -Avoid hepatotoxic agents 4. Seizure disorder: Patient with history of seizure. She follows with neurology, last seen on 04/02/19. EEG completed in May 2018 revealed a generalized spike and slow wave abnormality consistent with an underlying generalized seizure disorder. Patient had an MRI brain completed in October 2017 which was unremarkable. Patient failed VNS placement in the past, device was explanted. Presently on topiramate, Trileptal and Keppra. She was recently seen in the ER on 05/17/19 with report of seizures x 4 at home with a 5th seizure witnessed in triage - shaking her head and upper extremities. After consultation with Neurology her Oxcarbazepine was increased to 600mg po BID. Patient with repetitive head movement and lip smacking, uncertain if this represents ongoing seizure. Continue topiramate, check level Continue Trileptal, level sent yesterday still pending Continue Keppra, check level. -Ativan PRN -Seizure precautions per protocol -Neurology consultation 5. Diabetes: Patient with type 2 diabetes, well controlled, long-term use of insulin. Blood sugar today =139. Last hemoglobin A1c=4.8 on 04/06/19. Patient follows with Endocrinology/Diabetes education. Last seen on 03/30/19. -Lantus 5u BID with ISS, goal blood sugar while inpatient 100 - 140 -Recommend annual A1c monitoring -Followup with elementary educator outpatient as instructed 6. Chronic gait disorder - patient mostly in wheelchair at home. -Fall precautions Wheelchair and walker as needed Assistance as needed with transfers and ambulation -Patient has home health nurse 7. Hypothyroidism TSH=0.237 -Continue Synthroid 8. GERD- Chronic. Stable. -Continue Omeprazole 40mg po daily, Famotidine 40mg po daily 9. Depression Chronic. Stable. Patient presently not on any medications. She has been evaluated by Psychiatry in the past. 10. Asthma history of severe persistent asthma. She has seen Pulmonary as well as Allergy/Immunology in the past. Spirometry performed on 04/23/19 with FVC=1.37, 38% predicted. FEV1=1.18, 40% predicted and FEV1/FVC=86%. Suggestive of restrictive process vs obstruction with air trapping. Study limited. Formal PFTs ordered, not yet completed. Presently CTA, adequate oxygenation on room air, no concern for exacerbation at this time. -Continue Breo Ellipta -Continue Spiriva -Continue Albuterol PRN -Continue Loratadine 10mg po daily 11. Migraine: Patient with episodic migraines. Well-controlled. Continue topiramate Patient has used Maxalt in the past with success for migraine relief if needed 12. Tremor: Patient with coarse postural and action tremor. Continue topiramate F/E/N - LR at 80mL/hr x 1 L. Mg=1.5, will administer 3 gm IV, repeat Mg in AM. PO4=2.3. Will administer 9mmol KPhos. Low Na diet as tolerated if mental status improves Ppx - Low risk for DVT. Code - Full per discussion with patient Dispo - Admit to medical floor (2) Encephalopathy, hepatic: (3) Liver cirrhosis secondary to STEVE: (4) Seizures: (5) Hypomagnesemia: (6) Severe persistent asthma: (7) GERD (gastroesophageal reflux disease): (8) Controlled type 2 diabetes mellitus, with long-term current use of insulin: (9) Hypothyroidism: (10) Migraines: (11) Major depressive disorder with psychotic features: (12) Borderline personality disorder: History of Present Illness Chief Complaint: Altered mental status Primary Care Provider: DO Marcelle Bell Arpit is a 53-year-old female with multiple medical problems most notably cirrhosis secondary to STEVE with chronically elevated ammonia level, diabetes/depression/asthma/hypothyroidism. She was seen in the ER on 05/17/19 with complaint of seizures at home. She was loaded with Keppra and her Trileptal was increased from 900 to 1200 mg daily. She presented to the ER yesterday with her with complaint of confusion/altered mental status and somnolence ongoing for the last three days with acute worsening yesterday. also reported that she has been shaking her head more and doing a lipsmacking movement and was having frequent liquid stools. Patient clinically improved during her time in the ER and was ultimately discharged home in stable condition. reports that while at home the patient was able to ambulate and function however, was communicating less than normal. This morning, she was using the bedside commode and she slipped off the bed during transfer striking her left forearm on the commode. No additional complaints at this time. ER: Normal saline x500 mL Allergies Allergy/AdvReac Type Severity Reaction Status Date / Time metronidazole Allergy Severe SEIZURE Verified 05/23/19 09:18 tramadol Allergy Severe SEIZURES Verified 05/23/19 09:18 amoxicillin Allergy Intermediate HIVES; Has Verified 05/23/19 09:18 tolerated cephalosporins (Rocephin, Ceftin,Keflex baclofen Allergy Intermediate RASH Verified 05/23/19 09:18 butalbital Allergy Intermediate HIVES Verified 05/23/19 09:18 cat dander Allergy Intermediate Hives Verified 05/23/19 09:18 ceftriaxone [From Rocephin] Allergy Intermediate Hives Verified 05/23/19 09:18 clarithromycin Allergy Intermediate RASH Verified 05/23/19 09:18 clavulanic acid Allergy Intermediate Diarrhea Verified 05/23/19 09:18 dicyclomine Allergy Intermediate HIVES Verified 05/23/19 09:18 dog dander Allergy Intermediate Hives Verified 05/23/19 09:18 horse dander Allergy Intermediate Hives Verified 05/23/19 09:18 Penicillins Allergy Intermediate RASH; has Verified 05/23/19 09:18 tolerated cephs (Rocephin, Keflex, Ceftin) pollen extracts Allergy Intermediate Hives Verified 05/23/19 09:18 Tetracyclines Allergy Intermediate DOXYCYCLINE Verified 05/23/19 09:18 -HIVES adhesive Allergy Mild RASH, Verified 05/23/19 09:18 DUODERM=RED,ITCHY grape Allergy Mild Nausea Verified 05/23/19 09:18 sulindac Allergy Mild ALLERGY Verified 05/23/19 09:18 LISTED "CLONDORAL"--HIVES azithromycin Allergy Unknown Verified 05/23/19 09:18 Cephalosporins AdvReac Severe TURNS Verified 05/23/19 09:18 STOOL VERY DARK furosemide AdvReac Severe HIVES Verified 05/23/19 09:18 metoclopramide AdvReac Severe SEIZURES Verified 05/23/19 09:18 cefdinir AdvReac Intermediate Diarrhea Verified 05/23/19 09:18 blueberry AdvReac Mild STOMACH Verified 05/23/19 09:18 PAIN celecoxib AdvReac Mild HIVES Verified 05/23/19 09:18 Home Medications Home Medications Medication Instructions Recorded Confirmed Type multivitamin [Multiple Vitamins] 1 tab PO QDL 12/26/17 05/23/19 History ibuprofen 400 mg PO HS 08/07/18 05/23/19 History Probiotic 0 mmu cells PO QDL 09/20/18 05/23/19 History cholecalciferol (vitamin D3) 1,000 unit PO QDL 09/20/18 05/23/19 History [Vitamin D3] vitamin A 8,000 unit PO QDL 09/20/18 05/23/19 History vitamin B complex 1 tab PO QDL 09/20/18 05/23/19 History promethazine 25 mg PO Q6H PRN #12 tab 10/27/18 05/23/19 Rx topiramate 100 mg tablet 100 mg PO BID #60 tab 12/04/18 05/23/19 Rx Xifaxan 550 mg PO BID 01/07/19 05/23/19 History omeprazole 40 mg PO DAILY 01/07/19 05/23/19 History cranberry 400 mg PO DAILY 02/04/19 05/23/19 History zinc 50 mg PO DAILY 02/09/19 05/23/19 History pen needle, diabetic 31 gauge x See Rx Instructions .ROUTE 03/29/19 05/23/19 Rx 316" .COMPLEX #100 each gchhqodssshowltyyqqhcg-funeqqvb-qrotkiec 1 drops OP BID ml 03/30/19 05/23/19 History 80 0.5 %-1 %-0.5 % eye drops famotidine 40 mg tablet 40 mg PO DAILY 03/30/19 05/23/19 History insulin aspart U-100 100 unit/mL See Rx Instructions SQ .COMPLEX 03/30/19 05/23/19 History (3 mL) subcutaneous pen insulin degludec 100 unit/mL (3 10 units SUBCUT QAM ml 03/30/19 05/23/19 History mL) subcutaneous pen melatonin 10 mg capsule 15 mg PO HS cap 03/30/19 05/23/19 History spironolactone 50 mg tablet 25 mg PO QAM tab 03/30/19 05/23/19 History epinephrine 0.3 mg/0.3 mL 0.3 mg IM Q10M PRN 04/02/19 05/23/19 History injection, auto-injector levothyroxine 75 mcg tablet 75 mcg PO QAM #30 tab 04/14/19 05/23/19 Rx albuterol sulfate 90 mcg/actuation 2 puffs INH 6XD PRN #8 gm 04/23/19 05/23/19 R x aerosol inhaler fluticasone furoate 100 1 puffs INH DAILY #28 ea 04/23/19 05/23/19 Rx mcg-vilanterol 25 mcg/dose inhalation powder umeclidinium 62.5 mcg/actuation 1 puffs INH DAILY #30 ea 04/28/19 05/23/19 Rx blister powder for inhalation ipratropium 0.5 mg-albuterol 3 mg 3 ml INH QID PRN 04/29/19 05/23/19 History (2.5 mg base)/3 mL nebulization soln lactulose 20 gram/30 mL oral 45 ml PO DAILY ml 04/29/19 05/23/19 History solution lecithin 1,200 mg capsule 1,200 mg PO DAILY 04/29/19 05/23/19 History loratadine 10 mg tablet 10 mg PO DAILY 04/29/19 05/23/19 History magnesium oxide 500 mg capsule 500 mg PO DAILY 04/29/19 05/23/19 History oxcarbazepine 600 mg tablet 600 mg PO BID 30 Days #60 tab 05/18/19 05/23/19 Rx levetiracetam 750 mg tablet 1,500 mg PO BID 30 Days #120 tab 05/20/19 05/23/19 Rx Past Med/Surg History Medical History Abnormal finding on mammography Asthma STABLE Cirrhosis NON-ALCOHOLIC FATTY LIVER DISEASE Depression Dysphagia GERD (gastroesophageal reflux disease) CONTROLLED Hepatic encephalopathy HX; ON LACTULOSE/XIFAXAN Hx of migraines Hyperammonemia (Acute) Hypothyroidism Myoclonic seizure "FREQUENT MYOCLONIC SEIZURES" FOLLOWS WITH DR. YANG Pancytopenia CHRONIC Parkinsonism (Acute) Pneumonia (Acute) Polydipsia (Chronic) Seizure disorder (05/26/11) + PSEUDOSEIZURES Spleen enlargement (Acute) Surgical History History of ankle surgery B/L History of appendectomy History of cholecystectomy History of colonoscopy History of esophagogastroduodenoscopy (EGD) History of hysterectomy History of kyphoplasty History of surgery on arm LEFT History of tonsillectomy History of tooth extraction Hx of carpal tunnel repair B/L Hx of cataract extraction B/L S/P laminectomy lumbar spine S/P nasal surgery nasal bone fracture repair Family History Other Adopted No pertinent family history Social History Preferred Language: Pakistani Communication Ability: Effective Visual Impairment: No Limitations Batch Roller 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 Required: No Beliefs That Will Affect Care: None marital status: Current Living Situation: Spouse Current Living Situation Comment: Lives with in apartment current occupational status: unemployed and disabled Feels Safe at Home: Yes Smoking Status: Never smoker Second Hand Exposure: No ; Hx Alcohol Use: No Hx Substance Use: No Seatbelt Use: always Review of Systems Review of Systems: Unobtainable due to cognitive status Physical Exam Physical Exam: General: patient obtunded, minimally responsive to noxious stimuli, chronically ill in appearance, no acute distress Skin: warm, dry, no rashes or lesions, small abrasion on left forearm. HEENT: NC/AT, PERRL, anicteric sclera, conjunctiva without injection, external ear normal to inspection and nontender, nares patent, moist mucus membranes, dentition intact, no oropharyngeal lesions, neck supple, trachea midline, no LAD, no thyromegaly, no JVD Heart: +S1/S2, regular, no m/r/g Lungs: equal air entry bilaterally, no rales/rhonchi/wheezes Abd: +BS, soft, NT/ND, no masses/organomegaly/ascites Ext: warm, 2+ pulses in UE/LE bilaterally, no clubbing/cyanosis, 2+ edema of bilateral lower extremity Neuro: Patient minimally responsive, pupils equal and reactive to light, protecting airway, moving all extremities spontaneously Results & Data Vital Signs (Past 12 Hours) Vital Signs Temp Pulse Resp BP Pulse Ox 05/23/19 11:01 91 H 24 05/23/19 11:00 89 24 162/105 H 96 05/23/19 10:10 89 24 175/49 H 05/23/19 09:15 87 27 H 160/114 H 100 05/23/19 09:14 36.4 C L 99 H 23 160/114 H 100 Laboratory Results Lab Results 05/23/19 05/23/19 05/23/19 Range/Units 09:30 09:30 09:30 WBC 2.80 L (4.8-10.8) K/uL RBC 2.89 L (4.2-5.4) M/uL Hgb 10.6 L (12.0-16.0) g/dL Hct 28.5 L (37-47) % MCV 98.6 (80-100) fL MCH 36.7 H (25-34) pg MCHC 37.2 H (32-36) g/dL RDW Std Deviation 47.9 H (36.4-46.3) fL RDW Coeff of Irina 13.2 (11.5-14.5) % Plt Count 81 L (130-400) K/uL MPV 9.8 (7.4-10.4) fL Immature Gran % (Auto) 0.0 % Neut % (Auto) 59.6 % Lymph % (Auto) 26.1 % [place] % (Auto) 7.9 % Eos % (Auto) 4.6 % Baso % (Auto) 1.8 % Immature Gran # (Auto) 0.00 (0.00-0.02) K/uL Neut # (Auto) 1.67 (1.4-6.5) K/uL Lymph # (Auto) 0.73 L (1.2-3.4) K/uL [place] # (Auto) 0.22 (0.11-0.59) K/uL Eos # (Auto) 0.13 (0-0.5) K/uL Baso # (Auto) 0.05 (0-0.2) K/uL Ovalocytes 1+ Sodium 135 L (136-145) mmol/L Potassium 3.8 (3.5-5.1) mmol/L Chloride 107 (98-107) mmol/L Carbon Dioxide 21 (21-32) mmol/L Anion Gap 6.0 (3-11) BUN 7 (7-18) mg/dl Creatinine 0.44 L (0.6-1.2) mg/dl Est Cr Clr Drug Dosing 144.8 ml/min Est GFR ( Amer) 133.6 Est GFR (Non-Af Amer) 115.2 BUN/Creatinine Ratio 16.2 (10-20) Glucose 139 H (70-99) mg/dl Calcium 8.0 L (8.5-10.1) mg/dl Phosphorus 2.3 L (2.5-4.9) mg/dl Magnesium 1.5 L (1.8-2.4) mg/dl Total Bilirubin 1.6 H (0.2-1) mg/dl AST 41 H (15-37) U/L ALT 42 (12-78) U/L Alkaline Phosphatase 163 H (45-117) U/L Ammonia (11-32) umol/L Total Creatine Kinase 45 (26-192) U/L CK-MB (CK-2) < 1.0 (0.5-3.6) ng/ml CK/CKMB % Calc TNP Troponin I < 0.015 (0-0.045) ng/ml Total Protein 5.7 L (6.4-8.2) gm/dl Albumin 2.8 L (3.4-5.0) gm/dl Globulin 2.9 (2.5-4.0) gm/dl Albumin/Globulin Ratio 1.0 (0.9-2) TSH 0.237 L (0.300-4.500) uIu/ml 05/23/19 Range/Units 10:12 WBC (4.8-10.8) K/uL RBC (4.2-5.4) M/uL Hgb (12.0-16.0) g/dL Hct (37-47) % MCV (80-100) fL MCH (25-34) pg MCHC (32-36) g/dL RDW Std Deviation (36.4-46.3) fL RDW Coeff of Irina (11.5-14.5) % Plt Count (130-400) K/uL MPV (7.4-10.4) fL Immature Gran % (Auto) % Neut % (Auto) % Lymph % (Auto) % [place] % (Auto) % Eos % (Auto) % Baso % (Auto) % Immature Gran # (Auto) (0.00-0.02) K/uL Neut # (Auto) (1.4-6.5) K/uL Lymph # (Auto) (1.2-3.4) K/uL [place] # (Auto) (0.11-0.59) K/uL Eos # (Auto) (0-0.5) K/uL Baso # (Auto) (0-0.2) K/uL Ovalocytes Sodium (136-145) mmol/L Potassium (3.5-5.1) mmol/L Chloride (98-107) mmol/L Carbon Dioxide (21-32) mmol/L Anion Gap (3-11) BUN (7-18) mg/dl Creatinine (0.6-1.2) mg/dl Est Cr Clr Drug Dosing ml/min Est GFR ( Amer) Est GFR (Non-Af Amer) BUN/Creatinine Ratio (10-20) Glucose (70-99) mg/dl Calcium (8.5-10.1) mg/dl Phosphorus (2.5-4.9) mg/dl Magnesium (1.8-2.4) mg/dl Total Bilirubin (0.2-1) mg/dl AST (15-37) U/L ALT (12-78) U/L Alkaline Phosphatase (45-117) U/L Ammonia 133.6 H (11-32) umol/L Total Creatine Kinase (26-192) U/L CK-MB (CK-2) (0.5-3.6) ng/ml CK/CKMB % Calc Troponin I (0-0.045) ng/ml Total Protein (6.4-8.2) gm/dl Albumin (3.4-5.0) gm/dl Globulin (2.5-4.0) gm/dl Albumin/Globulin Ratio (0.9-2) TSH (0.300-4.500) uIu/ml Diagnostic Findings CT head/brain wo con CT DOSE: 1074.96 mGy.cm HISTORY: Pt c/O AMS TECHNIQUE: Multiaxial CT images of the head were performed without the use of intravenous contrast. A dose lowering technique was utilized adhering to the principles of ALARA. Comparison: 05/22/2019 Findings: The paranasal sinuses and mastoid air cells are clear. The calvarium and skull base are intact. The ventricles and sulci are within normal limits. There is no mass, hematoma, midline shift, or acute infarct. Impression: No acute intracranial abnormality. ACT 112: Negative or not required by law. The above report was generated using voice recognition software. It may contain grammatical, syntax or spelling errors. Electronically signed by: Kenroy Yates M.D. 05/23/2019 10:04 AM Dictated: 05/23/19 1003 XR chest 1V portable CLINICAL HISTORY: weakness COMPARISON STUDY: 05/22/2019 1:28 PM FINDINGS: Mild cardiomegaly. Lungs are clear. Diaphragms are smooth. IMPRESSION: Mild cardiomegaly. No major change from the prior study. ACT 112: Negative or not required by law. The above report was generated using voice recognition software. It may contain grammatical, syntax or spelling errors. Electronically signed by: Kenroy Yates M.D. 05/23/2019 10:00 AM Dictated: 05/23/19958 Transcribed: 05/23/19958 ECG Additional Comments: Study shows normal sinus rhythm at 89 bpm, normal axis, IL = 192, QRS = 100, QTc = 486, no acute ischemic changes Code Status & VTE Plan Code Status Full code VTE Prophylaxis Plan Reason for no VTE drug order: Treatment not indicated Reason for no VTE mechanical prophylaxis: Treatment not indicated PG Care Time/CCT Total # of Minutes Spent Total Time Spent with Patient: Total time spent is greater than 50% in coordination of care (as documented) at patient's floor/unit and/or counseling patient: Coding Level of Care Code 94947 Initial Inpt Care Lvl 3 Diagnoses Frequent falls R29.6 Encephalopathy, hepatic K72.90 Liver cirrhosis secondary to STEVE K75.81; K74.60 Seizures R56.9 Hypomagnesemia E83.42 Severe persistent asthma J45.50 GERD (gastroesophageal reflux disease) K21.9 Esophagitis presence: esophagitis presence not specified Controlled type 2 diabetes mellitus, with long-term current use of insulin E11.69; Z79.4 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 complication status: with other specified complication Hypothyroidism E03.9 Migraines G43.909 Major depressive disorder with psychotic features F32.3 Borderline personality disorder F60.3 (1) Controlled type 2 diabetes mellitus, with long-term current use of insulin 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 complication status: with other specified complication Qualified Code(s): E11.69 - Type 2 diabetes mellitus with other specified complication; Z79.4 - [facility] (current) use of insulin (2) GERD (gastroesophageal reflux disease) Esophagitis presence: esophagitis presence not specified Qualified Code(s): K21.9 - Gastro-esophageal reflux disease without esophagitis
--- NOTE | 2019-05-23 14:00 | Emergency Department Note ---
Entered by Sadie Marino acting as a scribe for Mehran Ovalle MD History of Present Illness General Chief complaint: Fall Stated complaint: ams Time Seen by Provider: 05/23/19 09:39 Source: family History of Present Illness Onset (ago): day(s) 1 Location: head (confusion) Severity: similar to prior episodes Pain Consistency: + intermittent Quality: + other (confusion) Associated symptoms: + confusion and + other (fall) Treatments prior to arrival: none The patient is a 53 year old female presenting to the Emergency Department complaining of intermittent confusion starting 1 day ago. The patients reports that the patient is confused. He states that woke up this morning and slipped out of bed, falling to the floor. He explains that the patient yelled and believed she was trying to go to the bathroom as there were feces on the bed. He notes that the patient has been non-verbal since her fall. He adds that the patient has experienced these symptoms before. The patients reports that the patient came to the [facility] Emergency Department 1 day ago for similar symptoms. He states that the patients ammonia level was 136 yesterday, He adds that the patient received no treatments [employer] for her symptoms. Home Medications Home Medications Medication Instructions Recorded Confirmed Type multivitamin [Multiple Vitamins] 1 tab PO QDL 12/26/17 05/23/19 History ibuprofen 400 mg PO HS 08/07/18 05/23/19 History Probiotic 0 mmu cells PO QDL 09/20/18 05/23/19 History cholecalciferol (vitamin D3) 1,000 unit PO QDL 09/20/18 05/23/19 History [Vitamin D3] vitamin A 8,000 unit PO QDL 09/20/18 05/23/19 History vitamin B complex 1 tab PO QDL 09/20/18 05/23/19 History promethazine 25 mg PO Q6H PRN #12 tab 10/27/18 05/23/19 Rx topiramate 100 mg tablet 100 mg PO BID #60 tab 12/04/18 05/23/19 Rx Xifaxan 550 mg PO BID 01/07/19 05/23/19 History omeprazole 40 mg PO DAILY 01/07/19 05/23/19 History cranberry 400 mg PO DAILY 02/04/19 05/23/19 History zinc 50 mg PO DAILY 02/09/19 05/23/19 History pen needle, diabetic 31 gauge x See Rx Instructions .ROUTE 03/29/19 05/23/19 Rx 3/16" .COMPLEX #100 each yrsgmggbjbzlurcdvvlljw-kvhldyvv-uuormanz 1 drops OP BID ml 03/30/19 05/23/19 History 80 0.5 %-1 %-0.5 % eye drops famotidine 40 mg tablet 40 mg PO DAILY 03/30/19 05/23/19 History insulin aspart U-100 100 unit/mL See Rx Instructions SQ .COMPLEX 03/30/19 05/23/19 History (3 mL) subcutaneous pen insulin degludec 100 unit/mL (3 10 units SUBCUT QAM ml 03/30/19 05/23/19 History mL) subcutaneous pen melatonin 10 mg capsule 15 mg PO HS cap 03/30/19 05/23/19 History spironolactone 50 mg tablet 25 mg PO QAM tab 03/30/19 05/23/19 History epinephrine 0.3 mg/0.3 mL 0.3 mg IM Q10M PRN 04/02/19 05/23/19 History injection, auto-injector levothyroxine 75 mcg tablet 75 mcg PO QAM #30 tab 04/14/19 05/23/19 Rx albuterol sulfate 90 mcg/actuation 2 puffs INH 6XD PRN #8 gm 04/23/19 05/23/19 Rx aerosol inhaler fluticasone furoate 100 1 puffs INH DAILY #28 ea 04/23/19 05/23/19 Rx mcg-vilanterol 25 mcg/dose inhalation powder umeclidinium 62.5 mcg/actuation 1 puffs INH DAILY #30 ea 04/28/19 05/23/19 Rx blister powder for inhalation ipratropium 0.5 mg-albuterol 3 mg 3 ml INH QID PRN 04/29/19 05/23/19 History (2.5 mg base)/3 mL nebulization soln lactulose 20 gram/30 mL oral 45 ml PO DAILY ml 04/29/19 05/23/19 History solution lecithin 1,200 mg capsule 1,200 mg PO DAILY 04/29/19 05/23/19 History loratadine 10 mg tablet 10 mg PO DAILY 04/29/19 05/23/19 History magnesium oxide 500 mg capsule 500 mg PO DAILY 04/29/19 05/23/19 History oxcarbazepine 600 mg tablet 600 mg PO BID 30 Days #60 tab 05/18/19 05/23/19 Rx levetiracetam 750 mg tablet 1,500 mg PO BID 30 Days #120 tab 05/20/19 05/23/19 Rx Allergies Allergy/AdvReac Type Severity Reaction Status Date / Time metronidazole Allergy Severe SEIZURE Verified 05/23/19 09:18 tramadol Allergy Severe SEIZURES Verified 05/23/19 09:18 amoxicillin Allergy Intermediate HIVES; Has Verified 05/23/19 09:18 tolerated cephalosporins (Rocephin, Ceftin,Keflex baclofen Allergy Intermediate RASH Verified 05/23/19 09:18 butalbital Allergy Intermediate HIVES Verified 05/23/19 09:18 cat dander Allergy Intermediate Hives Verified 05/23/19 09:18 ceftriaxone [From Rocephin] Allergy Intermediate Hives Verified 05/23/19 09:18 clarithromycin Allergy Intermediate RASH Verified 05/23/19 09:18 clavulanic acid Allergy Intermediate Diarrhea Verified 05/23/19 09:18 dicyclomine Allergy Intermediate HIVES Verified 05/23/19 09:18 dog dander Allergy Intermediate Hives Verified 05/23/19 09:18 horse dander Allergy Intermediate Hives Verified 05/23/19 09:18 Penicillins Allergy Intermediate RASH; has Verified 05/23/19 09:18 tolerated cephs (Rocephin, Keflex, Ceftin) pollen extracts Allergy Intermediate Hives Verified 05/23/19 09:18 Tetracyclines Allergy Intermediate DOXYCYCLINE Verified 05/23/19 09:18 -HIVES adhesive Allergy Mild RASH, Verified 05/23/19 09:18 DUODERM=RED,ITCHY grape Allergy Mild Nausea Verified 05/23/19 09:18 sulindac Allergy Mild ALLERGY Verified 05/23/19 09:18 LISTED "CLONDORAL"--HIVES azithromycin Allergy Unknown Verified 05/23/19 09:18 Cephalosporins AdvReac Severe TURNS Verified 05/23/19 09:18 STOOL VERY DARK furosemide AdvReac Severe HIVES Verified 05/23/19 09:18 metoclopramide AdvReac Severe SEIZURES Verified 05/23/19 09:18 cefdinir AdvReac Intermediate Diarrhea Verified 05/23/19 09:18 blueberry AdvReac Mild STOMACH Verified 05/23/19 09:18 PAIN celecoxib AdvReac Mild HIVES Verified 05/23/19 09:18 Past Med/Surg History Medical History Abnormal finding on mammography Asthma STABLE Cirrhosis NON-ALCOHOLIC FATTY LIVER DISEASE Depression Dysphagia GERD (gastroesophageal reflux disease) CONTROLLED Hepatic encephalopathy HX; ON LACTULOSE/XIFAXAN Hx of migraines Hyperammonemia (Acute) Hypothyroidism Myoclonic seizure "FREQUENT MYOCLONIC SEIZURES" FOLLOWS WITH DR. YANG Pancytopenia CHRONIC Parkinsonism (Acute) Pneumonia (Acute) Polydipsia (Chronic) Seizure disorder (05/26/11) + PSEUDOSEIZURES Spleen enlargement (Acute) Surgical History History of ankle surgery B/L History of appendectomy History of cholecystectomy History of colonoscopy History of esophagogastroduodenoscopy (EGD) History of hysterectomy History of kyphoplasty History of surgery on arm LEFT History of tonsillectomy History of tooth extraction Hx of carpal tunnel repair B/L Hx of cataract extraction B/L S/P laminectomy lumbar spine S/P nasal surgery nasal bone fracture repair Family History Other Adopted No pertinent family history Social History Preferred Language: [place] Communication Ability: Effective Visual Impairment: No Limitations Measurer Required: No Beliefs That Will Affect Care: None marital status: Current Living Situation: Spouse Current Living Situation Comment: Lives with in apartment current occupational status: unemployed and disabled Other Information That Helps Us Care for You: No Feels Safe at Home: Yes Safety Concerns: Feels Safe At This Time Smoking Status: Never smoker Second Hand Exposure: No ; Hx Alcohol Use: No Hx Substance Use: No Seatbelt Use: always Review of Systems See HPI for pertinent positives & negatives. and A total of 10 systems reviewed and were otherwise negative Physical Exam Vital Signs Vital Signs - 24 hr 05/23/19 09:14 05/23/19 09:15 05/23/19 10:10 Temperature 36.4 C L Temperature Source Oral Pulse Rate 99 H 87 89 Pulse Rate from SpO2 Sensor 88 Respiratory Rate 23 27 H 24 Respiratory Effort / Characteristics Non-Labored Spontaneous Respiratory Depth Normal Blood Pressure 160/114 H 160/114 H 175/49 H Blood Pressure Mean 129 120 88 Blood Pressure Position Sitting Pulse Oximetry 100 100 Oxygen Delivery Method Room Air Sepsis Recent Fever Within 48 Hours No Sepsis Action Taken by Nursing No Action Required 05/23/19 11:00 05/23/19 11:01 05/23/19 11:30 Temperature Temperature Source Pulse Rate 89 91 H 95 H Pulse Rate from SpO2 Sensor 96 H Respiratory Rate 24 24 Respiratory Effort / Characteristics Respiratory Depth Blood Pressure 162/105 H 145/83 H Blood Pressure Mean 121 117 Blood Pressure Position Pulse Oximetry 96 100 Oxygen Delivery Method Sepsis Recent Fever Within 48 Hours Sepsis Action Taken by Nursing 05/23/19 11:31 05/23/19 12:00 05/23/19 12:30 Temperature Temperature Source Pulse Rate 99 H 98 H 95 H Pulse Rate from SpO2 Sensor 99 H 241 H 95 H Respiratory Rate 17 19 20 Respiratory Effort / Characteristics Respiratory Depth Blood Pressure 122/76 144/83 H Blood Pressure Mean 100 100 Blood Pressure Position Pulse Oximetry 100 96 100 Oxygen Delivery Method Sepsis Recent Fever Within 48 Hours Sepsis Action Taken by Nursing 05/23/19 12:31 05/23/19 13:00 05/23/19 13:01 Temperature Temperature Source Pulse Rate 94 H 103 H 103 H Pulse Rate from SpO2 Sensor 95 H 104 H 103 H Respiratory Rate 24 18 Respiratory Effort / Characteristics Respiratory Depth Blood Pressure 150/72 H Blood Pressure Mean 116 Blood Pressure Position Pulse Oximetry 100 98 97 Oxygen Delivery Method Sepsis Recent Fever Within 48 Hours Sepsis Action Taken by Nursing GENERAL: Awake, alert, well-appearing, in no acute distress HENT: Normocephalic, atraumatic. Oropharynx unremarkable. EYES: Normal conjunctiva. Sclera non-icteric. NECK: Supple. No nuchal rigidity. FROM. No JVD. RESPIRATORY: Clear to auscultation. CARDIAC: Regular rate, normal rhythm. Extremities warm and well perfused. Pulses equal. ABDOMEN: Soft, non-distended. No tenderness to palpation. No rebound or guarding. No masses. RECTAL: Deferred. MUSCULOSKELETAL: Chest examination reveals no tenderness. The back is symmetrical on inspection without obvious abnormality. There is no CVA tenderness to palpation. No joint edema. LOWER EXTREMITIES: Calves are equal size bilaterally and non-tender. No edema. No discoloration. NEURO: Normal sensorium. No sensory or motor deficits noted. SKIN: No rash or jaundice noted. Course Course 0940: The patient was evaluated in room C10, and a complete history and physical examination were performed. 1140: I discussed the patients case with Dr. Rogerio CHAPIN hospitalist. She will evaluate the patient for further management. 1145: I updated the patient's at this time. Administered Medications Discontinued Medications Sodium Chloride (Nss 1000ml) 500 mls @ 999 mls/hr IV .Q31M ONE Stop: 05/23/19 10:16 Last Infusion: 05/23/19 10:46 Dose: 0 mls/hr Documented by: [id number] Admin: 05/23/19 10:18 Dose: 999 mls/hr Documented by: [id number] Medical Decision Making Differential Diagnosis Differential diagnoses includes but is not limited to toxic, metabolic, infectious, traumatic, cardiac, neurologic, hematologic, psychiatric and inflammatory etiologies. Medical Records Attestation: I reviewed the patient's medical records. Home Medications Current Medication List: was personally reviewed by me Laboratory Data Attestation: I reviewed the patient's lab results. Result diagrams: 05/23/19 09:30 05/23/19 09:30 Lab Results 05/23/19 05/23/19 05/23/19 Range/Units 09:30 09:30 09:30 WBC 2.80 L (4.8-10.8) K/uL RBC 2.89 L (4.2-5.4) M/uL Hgb 10.6 L (12.0-16.0) g/dL Hct 28.5 L (37-47) % MCV 98.6 (80-100) fL MCH 36.7 H (25-34) pg MCHC 37.2 H (32-36) g/dL RDW Std Deviation 47.9 H (36.4-46.3) fL RDW Coeff of Irina 13.2 (11.5-14.5) % Plt Count 81 L (130-400) K/uL MPV 9.8 (7.4-10.4) fL Immature Gran % (Auto) 0.0 % Neut % (Auto) 59.6 % Lymph % (Auto) 26.1 % [place] % (Auto) 7.9 % Eos % (Auto) 4.6 % Baso % (Auto) 1.8 % Immature Gran # (Auto) 0.00 (0.00-0.02) K/uL Neut # (Auto) 1.67 (1.4-6.5) K/uL Lymph # (Auto) 0.73 L (1.2-3.4) K/uL [place] # (Auto) 0.22 (0.11-0.59) K/uL Eos # (Auto) 0.13 (0-0.5) K/uL Baso # (Auto) 0.05 (0-0.2) K/uL Ovalocytes 1+ Sodium 135 L (136-145) mmol/L Potassium 3.8 (3.5-5.1) mmol/L Chloride 107 (98-107) mmol/L Carbon Dioxide 21 (21-32) mmol/L Anion Gap 6.0 (3-11) BUN 7 (7-18) mg/dl Creatinine 0.44 L (0.6-1.2) mg/dl Est Cr Clr Drug Dosing 144.8 ml/min Est GFR ( Amer) 133.6 Est GFR (Non-Af Amer) 115.2 BUN/Creatinine Ratio 16.2 (10-20) Glucose 139 H (70-99) mg/dl Calcium 8.0 L (8.5-10.1) mg/dl Phosphorus 2.3 L (2.5-4.9) mg/dl Magnesium 1.5 L (1.8-2.4) mg/dl Total Bilirubin 1.6 H (0.2-1) mg/dl AST 41 H (15-37) U/L ALT 42 (12-78) U/L Alkaline Phosphatase 163 H (45-117) U/L Ammonia (11-32) umol/L Total Creatine Kinase 45 (26-192) U/L CK-MB (CK-2) < 1.0 (0.5-3.6) ng/ml CK/CKMB % Calc TNP Troponin I < 0.015 (0-0.045) ng/ml Total Protein 5.7 L (6.4-8.2) gm/dl Albumin 2.8 L (3.4-5.0) gm/dl Globulin 2.9 (2.5-4.0) gm/dl Albumin/Globulin Ratio 1.0 (0.9-2) TSH 0.237 L (0.300-4.500) uIu/ml 05/23/19 Range/Units 10:12 WBC (4.8-10.8) K/uL RBC (4.2-5.4) M/uL Hgb (12.0-16.0) g/dL Hct (37-47) % MCV (80-100) fL MCH (25-34) pg MCHC (32-36) g/dL RDW Std Deviation (36.4-46.3) fL RDW Coeff of Irina (11.5-14.5) % Plt Count (130-400) K/uL MPV (7.4-10.4) fL Immature Gran % (Auto) % Neut % (Auto) % Lymph % (Auto) % [place] % (Auto) % Eos % (Auto) % Baso % (Auto) % Immature Gran # (Auto) (0.00-0.02) K/uL Neut # (Auto) (1.4-6.5) K/uL Lymph # (Auto) (1.2-3.4) K/uL [place] # (Auto) (0.11-0.59) K/uL Eos # (Auto) (0-0.5) K/uL Baso # (Auto) (0-0.2) K/uL Ovalocytes Sodium (136-145) mmol/L Potassium (3.5-5.1) mmol/L Chloride (98-107) mmol/L Carbon Dioxide (21-32) mmol/L Anion Gap (3-11) BUN (7-18) mg/dl Creatinine (0.6-1.2) mg/dl Est Cr Clr Drug Dosing ml/min Est GFR ( Amer) Est GFR (Non-Af Amer) BUN/Creatinine Ratio (10-20) Glucose (70-99) mg/dl Calcium (8.5-10.1) mg/dl Phosphorus (2.5-4.9) mg/dl Magnesium (1.8-2.4) mg/dl Total Bilirubin (0.2-1) mg/dl AST (15-37) U/L ALT (12-78) U/L Alkaline Phosphatase (45-117) U/L Ammonia 133.6 H (11-32) umol/L Total Creatine Kinase (26-192) U/L CK-MB (CK-2) (0.5-3.6) ng/ml CK/CKMB % Calc Troponin I (0-0.045) ng/ml Total Protein (6.4-8.2) gm/dl Albumin (3.4-5.0) gm/dl Globulin (2.5-4.0) gm/dl Albumin/Globulin Ratio (0.9-2) TSH (0.300-4.500) uIu/ml Imaging Data Radiologist's Impression: Radiology results as stated below per my review and the radiologist's interpretation: CT head/brain wo con CT DOSE: 1074.96 mGy.cm HISTORY: Pt c/O AMS TECHNIQUE: Multiaxial CT images of the head were performed without the use of intravenous contrast. A dose lowering technique was utilized adhering to the principles of ALARA. Comparison: 05/22/2019 Findings: The paranasal sinuses and mastoid air cells are clear. The calvarium and skull base are intact. The ventricles and sulci are within normal limits. There is no mass, hematoma, midline shift, or acute infarct. Impression: No acute intracranial abnormality. ACT 112: Negative or not required by law. The above report was generated using voice recognition software. It may contain grammatical, syntax or spelling errors. Electronically signed by: Kenroy Yates M.D. 05/23/2019 10:04 AM XR chest 1V portable CLINICAL HISTORY: weakness COMPARISON STUDY: 05/22/2019 1:28 PM FINDINGS: Mild cardiomegaly. Lungs are clear. Diaphragms are smooth. IMPRESSION: Mild cardiomegaly. No major change from the prior study. ACT 112: Negative or not required by law. The above report was generated using voice recognition software. It may contain grammatical, syntax or spelling errors. Electronically signed by: Kenroy Yates M.D. 05/23/2019 10:00 AM ECG Data Attestation: I personally reviewed and interpreted this ECG as follows: Indication: + altered mental status and + other (fall) Rate (beats per minute): 89 Rhythm: + normal sinus ECG Intervals/blocks: + Prolonged QT and + Normal QT-c (QT-c 486.) ECG ST segments: no ST depression and no ST elevation Blood Pressure Blood Pressure Findings: Elevated blood pressure Blood Pressure Disposition: further management by hospitalist ISIDRA Narrative Cardiac Monitoring: An order was placed for continuous cardiac monitoring. The monitor shows a rate of 91 with normal sinus rhythm. This is a 53-year-old female who presents emergency department unresponsive. The patient does have a history of seizures. She does not have an elevation in her white blood cell count has a normal renal profile has a normal liver profile. Her urine from yesterday does not show any evidence of contamination. I did discuss the case with the hospitalist service who did agree to admit the patient. Patient family were in agreement with the treatment plan. Impression & Plan Fall Discharge Plan Visit Data Chief Complaint: Fall Stated Complaint: ams ED Provider: Mehran Ovalle Discharge Problem: Fall Patient Disposition: Being Evaluated by Hospitalist Forms Stand Alone Forms: [facility] Prescriptions Prescriptions: No Action topiramate 100 mg tablet 100 mg PO BID Qty: 60 RF: 5 pen needle, diabetic [BD Ultra-Fine Mini Pen Needle] 31 gauge x 3/16" needle See Rx Instructions .ROUTE .COMPLEX Qty: 100 RF: 0 levothyroxine 75 mcg tablet 75 mcg PO QAM Qty: 30 RF: 5 Incruse Ellipta 62.5 mcg/actuation blister with device 1 puffs INH DAILY Qty: 30 RF: 6 oxcarbazepine 600 mg tablet 600 mg PO BID 30 Days Qty: 60 RF: 4 levetiracetam 750 mg tablet 1,500 mg PO BID 30 Days Qty: 120 RF: 2 Novolog Flexpen U-100 Insulin 100 unit/mL (3 mL) insulin pen See Rx Instructions SQ .COMPLEX RF: 0 Refresh Optive Advanced 0.5-1-0.5 % drops 1 drops OP BID RF: 0 melatonin 10 mg capsule 15 mg PO HS RF: 0 famotidine 40 mg tablet 40 mg PO DAILY RF: 0 epinephrine [EpiPen 2-Garret] 0.3 mg/0.3 mL auto-injector 0.3 mg IM Q10M PRN (Reason: Anaphylaxis) RF: 0 Breo Ellipta 100-25 mcg/dose blister with device 1 puffs INH DAILY Qty: 28 RF: 11 albuterol sulfate 90 mcg/actuation HFA aerosol inhaler 2 puffs INH 6XD PRN (Reason: shortness of breath or wheezing) Qty: 8 RF: 11 lactulose 20 gram/30 mL solution 45 ml PO DAILY RF: 0 lecithin 1,200 mg capsule 1,200 mg PO DAILY RF: 0 loratadine 10 mg tablet 10 mg PO DAILY RF: 0 ipratropium-albuterol 0.5 mg-3 mg(2.5 mg base)/3 mL solution for nebulization 3 ml INH QID PRN (Reason: Shortness Of Breath) RF: 0 magnesium oxide 500 mg capsule 500 mg PO DAILY RF: 0 multivitamin [Multiple Vitamins] Tablet 1 tab PO QDL RF: 0 spironolactone 50 mg tablet 25 mg PO QAM RF: 0 zinc 50 mg Tablet 50 mg PO DAILY RF: 0 Tresiba FlexTouch U-100 100 unit/mL (3 mL) insulin pen 10 units subcut QAM RF: 0 ibuprofen 200 mg tablet 400 mg PO HS RF: 0 vitamin A 8,000 unit Capsule 8,000 unit PO QDL RF: 0 vitamin B complex Tablet 1 tab PO QDL RF: 0 cholecalciferol (vitamin D3) [Vitamin D3] 1,000 unit Capsule 1,000 unit PO QDL RF: 0 Probiotic 3 billion cell Capsule 0 mmu cells PO QDL RF: 0 promethazine 25 mg tablet 25 mg PO Q6H PRN (Reason: sedation) Qty: 12 RF: 0 omeprazole 40 mg capsule,delayed release(DR/EC) 40 mg PO DAILY RF: 0 Xifaxan 550 mg tablet 550 mg PO BID RF: 0 cranberry 400 mg Capsule 400 mg PO DAILY RF: 0 Referrals Referrals: Balaji Zaragoza DO [Primary Care Provider] - Discharge Problem: Fall Qualifiers: Encounter type: initial encounter Qualified Code(s): W19.XXXA - Unspecified fall, initial encounter The scribe's documentation has been prepared under my direction and personally reviewed by me in its entirety. I confirm that the note above accurately reflects all work, treatment, procedures, and medical decision making performed by me.
[2019-05-23] MEDS ORDERED: ALBUT/IPRATROP 3MG/0.5MG NEB 3 ML VIAL INH PRN (14:32)
[2019-05-23] MEDS ORDERED: DEXTROSE 50% 50 ML SYRINGE IV PRN (14:32)
[2019-05-23] MEDS ORDERED: POTASSIUM PHOS 3 MMOL/1 ML INFUSION IV STA (14:32)
[2019-05-23] MEDS ORDERED: LORazepam 1 MG/2 ML VIAL IV PRN (14:32)
[2019-05-23] MEDS ORDERED: ALBUTEROL 0.5% NEB SOLN 2.5 MG/0.5 ML VIAL NEB PRN (14:32)
[2019-05-23] MEDS ORDERED: LACTATED RINGER'S 1,000 ML IV SCH (14:32)
[2019-05-23] MEDS ORDERED: GLUCOSE 10 TABS/TUBE PO PRN (14:32)
[2019-05-23] MEDS ORDERED: CARBOHYDRATES FOR HYPOGLYCEMIA PO PRN (14:32)
[2019-05-23] MEDS ORDERED: GLUCOSE 40% GEL 15 GM TUBE PO PRN (14:32)
[2019-05-23] MEDS ORDERED: GLUCAGON FOR INJ 1 MG VIAL SQ PRN (14:32)
--- NOTE | 2019-05-23 15:13 | XRay Report ---
LEFT FOREARM 2 VIEWS HISTORY: Left forearm pain. fall COMPARISON: Left wrist 04/10/2018. FINDINGS: There is no fracture or dislocation. Posterior soft tissue swelling at the olecranon. No el bow effusion. The bones are osteopenic. Degenerative changes noted within the wrist. IMPRESSION: No fractures. ACT 112: Negative or not required by law. Electronically signed by: Talon Cruz M.D. 05/23/2019 3:12 PM
[2019-05-23] MEDS ORDERED: POTASSIUM PHOSPHATE 9 MMOL in SODIUM CHLORIDE 0.9% 250 ML IV ONE (15:30)
[2019-05-23] MEDS: SPIRONOLACTONE 25 MG TAB PO SCH (15:41)
[2019-05-23] MEDS: LACTULOSE SYRUP 20 GM/30 ML UDC PO SCH ×3 (15:41→20:30)
[2019-05-23] MEDS: RIFAXIMIN 550 MG TABLET PO SCH ×2 (15:42→20:28)
--- NOTE | 2019-05-23 16:52 | Electrocardiogram Report ---
Test Reason : Blood Pressure : / mmHG Vent. Rate : 089 BPM Atrial Rate : 089 BPM P-R Int : 192 ms QRS Dur : 100 ms QT Int : 400 ms P-R-T Axes : 023 002 024 degrees QTc Int : 486 ms Normal sinus rhythm When compared with ECG of 22-MAY-2019 13:44, No significant change was found Confirmed by Kevin Caldera ([id number]) on 05/23/2019 4:52:02 PM Referred By: REFERRED SELF Confirmed By:Marbin Caldera
[2019-05-23] MEDS: MAGNESIUM SULFATE / D5W 1 GM/100 ML BAG IV SCH ×3 (18:12→20:18)
[2019-05-23] MEDS: INSULIN ASPART 100 UNITS/ML 3 ML PEN SC SCH ×2 (18:14→20:28)
[2019-05-23] MEDS ORDERED: Nursing to Pharmacy Communication ONE (18:28)
[2019-05-23] MEDS: OXcarbazepine 150 MG TABLET PO SCH (20:28)
[2019-05-23] MEDS: TOPIRAMATE 100 MG TAB PO SCH (20:28)
[2019-05-23] MEDS: levETIRAcetam 500 MG TAB PO SCH (20:28)
[2019-05-23] MEDS: INSULIN GLARGINE SOLOSTAR 100 UNITS/ML 3 ML PEN SC SCH (20:29)
[2019-05-24] MEDS: LEVOTHYROXINE SODIUM 75 MCG TABLET PO SCH (05:41)
[2019-05-24] MEDS: HEPARIN 100 UNIT/ML 5ML FLUSH FLUSH PRN ×2 (05:45→23:02)
[2019-05-24 06:19] LABS: Hematocrit (blood only) 27.7 % (37-47); Hemoglobin 10.1 g/dL (12.0-16.0); Mean Corpuscular Hemoglobin 36.9 pg (25-34); Mean Corpuscular Hgb Conc 36.5 g/dL (32-36); Mean Corpuscular Volume 101.1 fL (80-100); RDW Coefficient of Variation 13.6 % (11.5-14.5); RDW Standard Deviation 49.4 fL (36.4-46.3); Red Blood Count 2.74 M/uL (4.2-5.4); White Blood Count 3.28 K/uL (4.8-10.8)
[2019-05-24 06:36] LABS: INR 1.3 (0.9-1.1); Prothrombin Time 13.5 Seconds (9.0-12.0)
[2019-05-24 06:43] LABS: Basophils # (auto) 0.04 K/uL (0-0.2); Basophils % (auto) 1.2 %; Eosinophils # (auto) 0.14 K/uL (0-0.5); Eosinophils % (auto) 4.3 %; Lymphocytes # (auto) 1.13 K/uL (1.2-3.4); Lymphocytes % (auto) 34.5 %; Mean Platelet Volume 10.2 fL (7.4-10.4); Monocytes # (auto) 0.36 K/uL (0.11-0.59); Neutrophils # (auto) 1.61 K/uL (1.4-6.5); Platelet Count 88 K/uL (130-400)
[2019-05-24 07:01] LABS: Albumin Level 2.6 gm/dl (3.4-5.0); BUN Creatinine Ratio 12.2 (10-20); Bilirubin Direct 0.5 mg/dl (0-0.2); Bilirubin,Total 1.8 mg/dl (0.2-1); Calcium 7.9 mg/dl (8.5-10.1); Est GFR (African American) 128.9; Est GFR (Non-African American) 111.2; Magnesium 1.8 mg/dl (1.8-2.4); Potassium 3.5 mmol/L (3.5-5.1); Total Protein 5.2 gm/dl (6.4-8.2)
[2019-05-24] MEDS: MAGNESIUM OXIDE 400 MG TAB PO SCH (07:59)
[2019-05-24] MEDS: LORATADINE 10 MG TAB PO SCH (07:59)
[2019-05-24] MEDS: OXcarbazepine 150 MG TABLET PO SCH ×2 (07:59→21:26)
[2019-05-24] MEDS: PANTOprazole 40 MG TAB PO SCH (07:59)
[2019-05-24] MEDS: ZINC SULFATE 220 MG CAPSULE PO SCH (07:59)
[2019-05-24] MEDS: TOPIRAMATE 100 MG TAB PO SCH ×2 (08:00→21:26)
[2019-05-24] MEDS: RIFAXIMIN 550 MG TABLET PO SCH ×2 (08:00→21:26)
[2019-05-24] MEDS: FAMOTIDINE 40 MG TABLET PO SCH (08:00)
[2019-05-24] MEDS: FLUTICASONE/VILANTEROL 100/25MCG 14 PUFFS/INHALER INH SCH (08:00)
[2019-05-24] MEDS: levETIRAcetam 500 MG TAB PO SCH ×2 (08:00→21:25)
[2019-05-24] MEDS: UMECLIDINIUM BROMIDE 62.5MCG/BLISTER 7 PUFFS/INHALER INH SCH (08:01)
[2019-05-24] MEDS: SPIRONOLACTONE 25 MG TAB PO SCH (08:01)
[2019-05-24] MEDS: LACTULOSE SYRUP 20 GM/30 ML UDC PO SCH ×4 (08:01→21:24)
[2019-05-24] MEDS: INSULIN ASPART 100 UNITS/ML 3 ML PEN SC SCH ×4 (08:44→21:29)
[2019-05-24] MEDS: INSULIN GLARGINE SOLOSTAR 100 UNITS/ML 3 ML PEN SC SCH ×2 (08:44→21:27)
[2019-05-24] MEDS ORDERED: INSULIN DEGLUDEC 10 UNIT SQ SCH (09:00)
--- NOTE | 2019-05-24 11:11 | Neurology Consultation ---
Date of Consultation May 24, 2019 Assessment & Plan (1) Encephalopathy, hepatic: Chronic hepatic encephalopathy with occasional exacerbations on chronic lactulose therapy. Patient's encephalopathy appears to be resolved this morning. No need for EEG or additional neurological testing. Continue with GI regimen. This patient's 3 anticonvulsants, Keppra, Trileptal, and topiramate are not strongly liver toxic and do not carry specific warnings for liver impairment. Her current dosages of these medications are appropriate, with normal drug levels. (2) Seizure disorder: Seizure disorder, diagnosed in childhood, primary generalized epilepsy. Recent breakthrough seizures. Have patient continue with her current anticonvulsant drug regimen including topiramate 100 mg twice daily, oxcarbazepine 600 mg twice daily, and levetiracetam 1500 mg twice daily. If she were to have any further seizures there is room to increase her dosage of Keppra. (3) Tremor: Mild bilateral upper extremity postural and action tremor. No obvious asterixis at this time. Patient's tremor has been a chronic issue. She will continue with topiramate at the current dosage which is also useful for tremor, in addition to seizures and migraines. (4) Migraines: Migraines. Current frequency relatively low, perhaps only one episode per month in speaking with the patient and her spouse this morning. As above, patient may continue with topiramate which is useful for migraines, tremor, and as an adjunctive anticonvulsant in her case. I believe this patient has a prescription for Maxalt for acute migraine treatment which should be fine if necessary. Her current low-grade headache is not really a migraine, however, and I would not recommend this medication currently. Monitor for now. History of Present Illness Reason for Consultation: Change in mental status Requesting Physician: Amalia Beatty DO Attending Physician: Damon Madrigal MD History of Present Illness The patient is a 53-year-old female who is well-known to me. She has a history of epilepsy diagnosed in childhood as well as migraines and tremor. Her management is further complicated by chronic liver failure/cirrhosis secondary to STEVE, chronic hepatic encephalopathy, myelodysplastic syndrome/pancytopenia, and type 2 diabetes mellitus. She has a history of VNS placement which was explanted due to lack of benefit several years ago. Her spouse is her primary caregiver. I last evaluated this patient in the outpatient clinic on April 02, 2019 for ongoing management of her migraines, tremors, and seizure disorder. At that point in time, she was clinically stable as was her chronic hepatic encephalopathy for which she has been compliant with her lactulose therapy. I had recommended follow-up anticonvulsant drug levels at that time. Levels were appropriate. The patient spouse had contacted the office several times over the past few weeks reporting breakthrough seizure activity. Her Trileptal dosage was increased. The patient presented to the emergency department yesterday morning with intermittent confusion for the past 24 hours. She had been a ssessed in the emergency department the day prior for altered mental status as well. Head CTs completed on both days were unremarkable, no evidence of hemorrhage or acute process. Her ammonia level has been chronically elevated, 133.6 yesterday. I evaluated this patient with her at bedside this morning. She is currently significantly improved. She does complain of a low- grade headache but otherwise her mentation seems to be normal her back to her baseline. She continues to exhibit a mild postural and action tremor, does not appear to have asterixis at this time. Patient's recent seizures have been of the generalized type with momentary lapses in awareness and generalized shaking. Allergies Allergy/AdvReac Type Severity Reaction Status Date / Time metronidazole Allergy Severe SEIZURE Verified 05/23/19 09:18 tramadol Allergy Severe SEIZURES Verified 05/23/19 09:18 amoxicillin Allergy Intermediate HIVES; Has Verified 05/23/19 09:18 tolerated cephalosporins (Rocephin, Ceftin,Keflex baclofen Allergy Intermediate RASH Verified 05/23/19 09:18 butalbital Allergy Intermediate HIVES Verified 05/23/19 09:18 cat dander Allergy Intermediate Hives Verified 05/23/19 09:18 ceftriaxone [From Rocephin] Allergy Intermediate Hives Verified 05/23/19 09:18 clarithromycin Allergy Intermediate RASH Verified 05/23/19 09:18 clavulanic acid Allergy Intermediate Diarrhea Verified 05/23/19 09:18 dicyclomine Allergy Intermediate HIVES Verified 05/23/19 09:18 dog dander Allergy Intermediate Hives Verified 05/23/19 09:18 horse dander Allergy Intermediate Hives Verified 05/23/19 09:18 Penicillins Allergy Intermediate RASH; has Verified 05/23/19 09:18 tolerated cephs (Rocephin, Keflex, Ceftin) pollen extracts Allergy Intermediate Hives Verified 05/23/19 09:18 Tetracyclines Allergy Intermediate DOXYCYCLINE Verified 05/23/19 09:18 -HIVES adhesive Allergy Mild RASH, Verified 05/23/19 09:18 DUODERM=RED,ITCHY grape Allergy Mild Nausea Verified 05/23/19 09:18 sulindac Allergy Mild ALLERGY Verified 05/23/19 09:18 LISTED "CLONDORAL"--HIVES azithromycin Allergy Unknown Verified 05/23/19 09:18 Cephalosporins AdvReac Severe TURNS Verified 05/23/19 09:18 STOOL VERY DARK furosemide AdvReac Severe HIVES Verified 05/23/19 09:18 metoclopramide AdvReac Severe SEIZURES Verified 05/23/19 09:18 cefdinir AdvReac Intermediate Diarrhea Verified 05/23/19 09:18 blueberry AdvReac Mild STOMACH Verified 05/23/19 09:18 PAIN celecoxib AdvReac Mild HIVES Verified 05/23/19 09:18 Home Medications Home Medications Medication Instructions Recorded Confirmed Type multivitamin [Multiple Vitamins] 1 tab PO QDL 12/26/17 05/23/19 History ibuprofen 400 mg PO HS 08/07/18 05/23/19 History Probiotic 0 mmu cells PO QDL 09/20/18 05/23/19 History cholecalciferol (vitamin D3) 1,000 unit PO QDL 09/20/18 05/23/19 History [Vitamin D3] vitamin A 8,000 unit PO QDL 09/20/18 05/23/19 History vitamin B complex 1 tab PO QDL 09/20/18 05/23/19 History promethazine 25 mg PO Q6H PRN #12 tab 10/27/18 05/23/19 Rx topiramate 100 mg tablet 100 mg PO BID #60 tab 12/04/18 05/23/19 Rx Xifaxan 550 mg PO BID 01/07/19 05/23/19 History omeprazole 40 mg PO DAILY 01/07/19 05/23/19 History cranberry 400 mg PO DAILY 02/04/19 05/23/19 History zinc 50 mg PO DAILY 02/09/19 05/23/19 History pen needle, diabetic 31 gauge x See Rx Instructions .ROUTE 03/29/19 05/23/19 Rx 06/13" .COMPLEX #100 each nqxktirpkbaxgjfzqpofwz-qulvaaxz-sphpvcaf 1 drops OP BID ml 03/30/19 05/23/19 History 80 0.5 %-1 %-0.5 % eye drops famotidine 40 mg tablet 40 mg PO DAILY 03/30/19 05/23/19 History insulin aspart U-100 100 unit/mL See Rx Instructions SQ .COMPLEX 03/30/19 05/23/19 History (3 mL) subcutaneous pen insulin degludec 100 unit/mL (3 10 units SUBCUT QAM ml 03/30/19 05/23/19 History mL) subcutaneous pen melatonin 10 mg capsule 15 mg PO HS cap 03/30/19 05/23/19 History spironolactone 50 mg tablet 25 mg PO QAM tab 03/30/19 05/23/19 History epinephrine 0.3 mg/0.3 mL 0.3 mg IM Q10M PRN 04/02/19 05/23/19 History injection, auto-injector levothyroxine 75 mcg tablet 75 mcg PO QAM #30 tab 04/14/19 05/23/19 Rx albuterol sulfate 90 mcg/actuation 2 puffs INH 6XD PRN #8 gm 04/23/19 05/23/19 Rx aerosol inhaler fluticasone furoate 100 1 puffs INH DAILY #28 ea 04/23/19 05/23/19 Rx mcg-vilanterol 25 mcg/dose inhalation powder umeclidinium 62.5 mcg/actuation 1 puffs INH DAILY #30 ea 04/28/19 05/23/19 Rx blister powder for inhalation ipratropium 0.5 mg-albuterol 3 mg 3 ml INH QID PRN 04/29/19 05/23/19 History (2.5 mg base)/3 mL nebulization soln lactulose 20 gram/30 mL oral 45 ml PO DAILY ml 04/29/19 05/23/19 History solution lecithin 1,200 mg capsule 1,200 mg PO DAILY 04/29/19 05/23/19 History loratadine 10 mg tablet 10 mg PO DAILY 04/29/19 05/23/19 History magnesium oxide 500 mg capsule 500 mg PO DAILY 04/29/19 05/23/19 History oxcarbazepine 600 mg tablet 600 mg PO BID 30 Days #60 tab 05/18/19 05/23/19 Rx levetiracetam 750 mg tablet 1,500 mg PO BID 30 Days #120 tab 05/20/19 05/23/19 Rx Patient History Medical History Abnormal finding on mammography Asthma STABLE Cirrhosis NON-ALCOHOLIC FATTY LIVER DISEASE Depression Dysphagia GERD (gastroesophageal reflux disease) CONTROLLED Hepatic encephalopathy HX; ON LACTULOSE/XIFAXAN Hx of migraines Hyperammonemia (Acute) Hypothyroidism Myoclonic seizure "FREQUENT MYOCLONIC SEIZURES" FOLLOWS WITH DR. GONZALEZ Pancytopenia CHRONIC Parkinsonism (Acute) Pneumonia (Acute) Polydipsia (Chronic) Seizure disorder (05/26/11) + PSEUDOSEIZURES Spleen enlargement (Acute) Surgical History History of ankle surgery B/L History of appendectomy History of cholecystectomy History of colonoscopy History of esophagogastroduodenoscopy (EGD) History of hysterectomy History of kyphoplasty History of surgery on arm LEFT History of tonsillectomy History of tooth extraction Hx of carpal tunnel repair B/L Hx of cataract extraction B/L S/P laminectomy lumbar spine S/P nasal surgery nasal bone fracture repair Family History Other Adopted No pertinent family history Social History Preferred Language: Hungarian Communication Ability: Effective Visual Impairment: No Limitations Pens And Pencils Dipper Required: No Beliefs That Will Affect Care: None marital status: Current Living Situation: Spouse Current Living Situation Comment: Lives with in apartment current occupational status: unemployed and disabled Feels Safe at Home: Yes Smoking Status: Never smoker Second Hand Exposure: No ; Hx Alcohol Use: No Hx Substance Use: No Seatbelt Use: always Review of Systems Constitutional: + fatigue; no fever and no chills Eyes: no blind spots, no diplopia and no eye pain Ear, Nose, Mouth, Throat: no hearing loss Respiratory: no cough and no dyspnea Cardiovascular: no chest pain and no palpitations Gastrointestinal: + diarrhea/loose stools; no nausea and no vomiting Genitourinary: no dysuria Musculoskeletal: no myalgia Integumentary: no rash and no lesions Neurologic: as per Subjective / HPI, + tremor(s), + headache(s) and + confusion; no localized weakness and no loss of sensation Psychiatric: no depression and no anxiety Hematologic / Lymphatic: no easy bleeding and no easy bruising Physical Exam Physical Exam: The patient is a well-developed, well-nourished middle-aged female. She is alert and fully oriented. Recent and remote memory intact. Attention and concentration normal. Patient exhibits a normal spontaneous speech pattern as well as an age-appropriate fund of knowledge and normal comprehension of vocabulary. Visual dyer full to confrontation. Visual acuity normal. Pupils equal round reactive to light and accommodation. Eye movements normal. There is no nystagmus, ptosis, or ophthalmoplegia. Facial sensation intact. There is no facial droop or weakness. Hearing intact. Palate elevates to midline. Shoulder shrug intact. Tongue protrudes to midline. Sensation intact all modalities in all 4 limbs. Deep tendon reflexes diffusely diminished, plantar responses downgoing bilaterally. There is no dysdiadochokinesia or dysmetria aviucs-ef-lptm or qprp-vj-yalb bilaterally. Ophthalmoscopic examination reveals normal-appearing optic disks and posterior segments. No papilledema or hemorrhages. Gait and station not tested due to safety concerns. Patient exhibits normal muscle strength and tone for all 4 limbs. No atrophy. Patient exhibits a mild bilateral upper extremity postural and action tremor. No asterixis at this time. Results & Data Vital Signs (Past 12 Hours) Vital Signs Temp Pulse Resp BP BP Pulse Ox 05/24/19 07:31 36.7 C 77 16 126/75 97 05/23/19 23:48 36.6 C 81 16 129/75 93 Laboratory Results WBC 3.28, hemoglobin 10.1, hematocrit 27.7, platelet count 88, sodium 144, potassium 3.5, BUN 6, creatinine 0.49, glucose 138, calcium 7.9, magnesium 1.8, AST 43, ALT 42, ammonia 133.6 yesterday, albumin 2.6, TSH 0.237 10 hydroxy carbamazepine level May 17, 19994.8, topiramate level 6.5 at that time as well. A levetiracetam level from April 12, [address] Findings [address] of the head done May 23, 2019 was negative for hemorrhage or acute process. I reviewed the images as well as the radiologist's interpretation of this test. An EEG completed in May 2018 revealed a generalized spike and slow wave abnormality consistent with an underlying generalized seizure disorder. Coding Level of Care Code 73982 Initial Inpt Care Lvl 3 Diagnoses Encephalopathy, hepatic K72.90 Seizure disorder G40.909 Tremor R25.1 Migraines G43.909
[2019-05-24] MEDS: PROMETHAZINE HCL 25 MG TAB PO PRN (11:15)
--- NOTE | 2019-05-24 14:40 | Hospitalist Progress Note ---
Date of Service May 24, 2019 Assessment & Plan (1) Confusion: Marcelle Munson is a 53 y/o female with numerous co-medical comorbidities was brought in to the ED for AMS/Confusion. - History of hepatic encephalopathy with chronically elevated Ammonia blood levels, however, elevated levels in blood don't represent elevated levels in brain. - Other etiologies discussed including hyponatremia and dehydration in setting of fragile complex patient with diuretic and Lactulose, vomiting causing fluid loses. She appears to be back to baseline and only significant change in lab values was correction of her hyponatremia. Will follow Is and Os. - Denies recent seizure within past 48 hours to be explained as post-ictal - Spouse states they check blood sugars and haven't had any low readings, but he also notes that home reads might not be accurate. Also notes that her PO intake in the morning is poor in setting of insulin dependence with concern for hypoglycemia. Code Status: Full Code DVT ppx: SCDs FENGI: Low Sodium/Carb consistent; c/w home Pepcid 40mg daily and Pantoprazole 40mg PO daily Dispo: Most likely will be able to go home within next 1-2 days. (2) Encephalopathy, hepatic: - Noted to have chronic elevation of Ammonia levels - Cirrhosis secondary to STEVE - Continue with Lactulose 45mL PO daily - Continue with Xifaxan 550mg PO BID - Will consult GI to ensure Lactulose and Xifaxan medications are appropriate as dehydration from GI losses could be cause of AMS/confusion. (3) Hyponatremia: - 135 on presentation; now 144 this AM - Most likely from GI loses - Trend (4) Liver cirrhosis secondary to STEVE: noted in past history leading to her chronically elevated ammonia levels. (5) Controlled type 2 diabetes mellitus, with long-term current use of insulin: Will get clinical staff educator and sheet metal technician involved. Concern that patient might be having hypoglycemic spells that could be cause of confusion. Her A1C on 04/06/19 was 4.8 and in fact might be too well controlled. (6) Seizure disorder: Neurology was consulted and patient appears stable from her seizure disorder standpoint Continue with home medications - Levetiracetam 1,500mg PO BID - Oxcarbazepine 600mg PO BID - topiramate 100 mg BID (7) Tremor: - Chronic Mild bilateral upper extremity postural and intention tremor; not consistent with asterixis. (8) Migraines: Noted history of, no current complaints this AM. (9) Fall: Work up provided in ED did not show any significant injuries. No complaints this AM of pain. (10) Pancytopenia: - Chronic - will trend - No active signs of bleeding. Admission and Anticipated Discharge Date Admission Date: May 23, 2019 Supervising Physician Co-Signing Physician Notes Attending attestation Pt seen and examined in concert with Dr. Butt. In agreement with the documented findings as noted in the resident documentation with any exceptions or additions as noted here. Pt and spouse reports return to baseline today. On discussion with spouse, was having 4-5+ loose brown BM per day. PO intake described as minimal - 1/2 muffin, grilled cheese +/- soup and small meal for dinner. Checking glucose with issue w ith meter. A1cs have been < 5. On examination, S1/S2 nl RRR no MCG. CTAB. Abd NT/ND BS+ve Altered mental status in the setting of hepatic encephalopathy, dehydration and DMII - neurology, GI consultation appreciated - continue rifaximin and lactulose - monitor and titrate the latter to ~4 BM/day while here. Loosen restrictions on glucose as A1c has been consistently too low and may be impacting mental status. Monitoring closely. DM educator would be beneficial. Else see resident documentation as noted. Jeffry Atkinsnn and Spouse are at bedside. She notes only remembering ambulance transfer yesterday. Spouse notes that patient slid off of bedside commode yesterday but was acting confused all day yesterday. He notes she was unable to take her oral medications yesterday. He notes that she does like to drink Soda and might not be providing enough oral water hydration in setting of Spironolactone diuretic and Lactulose causing BMs. Also, she notes having half a muffin and some yogurt for breakfast. She and spouse note that she appears to be back to her neuro baseline this AM. She and him deny any seizures the past couple of days. No head trauma yesterday with fall. She does mention vomiting twice this AM, once before breakfast and once after breakfast without sensation of nausea. Spouse notes that they follow with [facility] and were planning to have outpatient gastric emptying study. She denies shortness of breath, chest pain, fever, chills. Physical Exam Constitutional: WD/WN, vitals as above cooperative and comfortable Eyes: PERRL, conjunctivae normal, anicteric sclerae ENMT: external ear and nose normal, oropharynx normal Neck: normal visual inspection and trachea midline Respiratory: + abnormal respiratory effort (poor respiratory effort), no respiratory distress and no labored breathing Auscultation: no wheezes Cardiovascular: Rate/Rhythm: regular rate and regular rhythm Extremities: no calf tenderness Gastrointestinal (Abdomen): Percussion/Palpation: abdomen soft; abdomen nontender, no guarding and abdomen not rigid Musculoskeletal: Head/Neck/Chest: normocephalic and head atraumatic Skin: no rashes, warm and dry Neurologic: moves all extremities and awake continuous lip smacking consistent with tardive dyskinesia. Psychiatric: A+Ox3, euthymic affect Results & Data ([facility]) Vital Signs (Past 12 Hours) Vital Signs Temp Pulse Resp BP Pulse Ox 05/24/19 07:31 36.7 C 77 16 126/75 97 Resident Activity Tracking Resident Involvement: Resident Care Provided Care Provided: Adult Hospital Medicine (1) Controlled type 2 diabetes mellitus, with long-term current use of insulin 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 complication status: with other specified complication Qualified Code(s): E11.69 - Type 2 diabetes mellitus with other specified complication; Z79.4 - retirement (current) use of insulin (2) Fall Encounter type: initial encounter Qualified Code(s): W19.XXXA - Unspecified fall, initial encounter
--- NOTE | 2019-05-24 17:42 | Gastrointestinal Consultation ---
Date of Consultation May 24, 2019 Assessment & Plan (1) Liver cirrhosis secondary to STEVE: Continue supportive care Will need RUQ US every 6 months for HCC surveillance Continue to abstain from all alcohol as it is a known liver toxin Continue 2 g Na diet (2) Hyperammonemia: Continue Lactulose 45 ml PO TID PRN to ensure 3 BM's per day Continue Xifaxan 550 mg by mouth BID (3) Gastroparesis: Not a candidate for Reglan therapy Recommend diet with frequent meals, up to 6 per day, with low fat and low fiber content History of Present Illness Reason for Consultation: Hepatic encephalopathy Attending Physician: Damon Madrigal MD History of Present Illness Marcelle Munson is a 53 yo CF with a significant PMHx of STEVE Cirrhosis, hepatic encephalopathy with chronic ammonia elevations, Gastroparesis, and a seizure disorder, who presented to the ER yesterday morning via EMS secondary to altered mental status. She had been to the ER earlier in the week as well, and had CT scans of the head on both trips, which were normal. She does have a chronic elevation in her ammonia levels, and remains on lactulose therapy daily to titrate for 3 BM's per day as well as Xifaxan 550 mg by mouth twice daily. Review of her record reveals chronic elevations on her ammonia level dating back to 2017, with no findings in the normal range. Nursing staff reports that she is more alert today, however, she did have multiple episodes of vomiting this AM with attempts to eat. At the time I saw her, she states that she is feeling better. She denies any fevers, chills, nausea, abdominal pain, diarrhea, hematemesis, melena or hematochezia. She is asking for an increased diet this evening. She states she is feeling much better now. Allergies Allergy/AdvReac Type Severity Reaction Status Date / Time metronidazole Allergy Severe SEIZURE Verified 05/23/19 09:18 tramadol Allergy Severe SEIZURES Verified 05/23/19 09:18 amoxicillin Allergy Intermediate HIVES; Has Verified 05/23/19 09:18 tolerated cephalosporins (Rocephin, Ceftin,Keflex baclofen Allergy Intermediate RASH Verified 05/23/19 09:18 butalbital Allergy Intermediate HIVES Verified 05/23/19 09:18 cat dander Allergy Intermediate Hives Verified 05/23/19 09:18 ceftriaxone [From Rocephin] Allergy Intermediate Hives Verified 05/23/19 09:18 clarithromycin Allergy Intermediate RASH Verified 05/23/19 09:18 clavulanic acid Allergy Intermediate Diarrhea Verified 05/23/19 09:18 dicyclomine Allergy Intermediate HIVES Verified 05/23/19 09:18 dog dander Allergy Intermediate Hives Verified 05/23/19 09:18 horse dander Allergy Intermediate Hives Verified 05/23/19 09:18 Penicillins Allergy Intermediate RASH; has Verified 05/23/19 09:18 tolerated cephs (Rocephin, Keflex, Ceftin) pollen extracts Allergy Intermediate Hives Verified 05/23/19 09:18 Tetracyclines Allergy Intermediate DOXYCYCLINE Verified 05/23/19 09:18 -HIVES adhesive Allergy Mild RASH, Verified 05/23/19 09:18 DUODERM=RED,ITCHY grape Allergy Mild Nausea Verified 05/23/19 09:18 sulindac Allergy Mild ALLERGY Verified 05/23/19 09:18 LISTED "CLONDORAL"--HIVES azithromycin Allergy Unknown Verified 05/23/19 09:18 Cephalosporins AdvReac Severe TURNS Verified 05/23/19 09:18 STOOL VERY DARK furosemide AdvReac Severe HIVES Verified 05/23/19 09:18 metoclopramide AdvReac Severe SEIZURES Verified 05/23/19 09:18 cefdinir AdvReac Intermediate Diarrhea Verified 05/23/19 09:18 blueberry AdvReac Mild STOMACH Verified 05/23/19 09:18 PAIN celecoxib AdvReac Mild HIVES Verified 05/23/19 09:18 Home Medications Home Medications Medication Instructions Recorded Confirmed Type multivitamin [Multiple Vitamins] 1 tab PO QDL 12/26/17 05/23/19 History ibuprofen 400 mg PO HS 08/07/18 05/23/19 History Probiotic 0 mmu cells PO QDL 09/20/18 05/23/19 History cholecalciferol (vitamin D3) 1,000 unit PO QDL 09/20/18 05/23/19 History [Vitamin D3] vitamin A 8,000 unit PO QDL 09/20/18 05/23/19 History vitamin B complex 1 tab PO QDL 09/20/18 05/23/19 History promethazine 25 mg PO Q6H PRN #12 tab 10/27/18 05/23/19 Rx topiramate 100 mg tablet 100 mg PO BID #60 tab 12/04/18 05/23/19 Rx Xifaxan 550 mg PO BID 01/07/19 05/23/19 History omeprazole 40 mg PO DAILY 01/07/19 05/23/19 History cranberry 400 mg PO DAILY 02/04/19 05/23/19 History zinc 50 mg PO DAILY 02/09/19 05/23/19 History pen needle, diabetic 31 gauge x See Rx Instructions .ROUTE 03/29/19 05/23/19 Rx 3/16" .COMPLEX #100 each hlrrxaxqiaxykasxcvwkdt-boalhvdv-hihqfqzi 1 drops OP BID ml 03/30/19 05/23/19 History 80 0.5 %-1 %-0.5 % eye drops famotidine 40 mg tablet 40 mg PO DAILY 03/30/19 05/23/19 History insulin aspart U-100 100 unit/mL See Rx Instructions SQ .COMPLEX 03/30/19 05/23/19 History (3 mL) subcutaneous pen insulin degludec 100 unit/mL (3 10 units SUBCUT QAM ml 03/30/19 05/23/19 History mL) subcutaneous pen melatonin 10 mg capsule 15 mg PO HS cap 03/30/19 05/23/19 History spironolactone 50 mg tablet 25 mg PO QAM tab 03/30/19 05/23/19 History epinephrine 0.3 mg/0.3 mL 0.3 mg IM Q10M PRN 04/02/19 05/23/19 History injection, auto-injector levothyroxine 75 mcg tablet 75 mcg PO QAM #30 tab 04/14/19 05/23/19 Rx albuterol sulfate 90 mcg/actuation 2 puffs INH 6XD PRN #8 gm 04/23/19 05/23/19 Rx aerosol inhaler fluticasone furoate 100 1 puffs INH DAILY #28 ea 04/23/19 05/23/19 Rx mcg-vilanterol 25 mcg/dose inhalation powder umeclidinium 62.5 mcg/actuation 1 puffs INH DAILY #30 ea 04/28/19 05/23/19 Rx blister powder for inhalation ipratropium 0.5 mg-albuterol 3 mg 3 ml INH QID PRN 04/29/19 05/23/19 History (2.5 mg base)/3 mL nebulization soln lactulose 20 gram/30 mL oral 45 ml PO DAILY ml 04/29/19 05/23/19 History solution lecithin 1,200 mg capsule 1,200 mg PO DAILY 04/29/19 05/23/19 History loratadine 10 mg tablet 10 mg PO DAILY 04/29/19 05/23/19 History magnesium oxide 500 mg capsule 500 mg PO DAILY 04/29/19 05/23/19 History oxcarbazepine 600 mg tablet 600 mg PO BID 30 Days #60 tab 05/18/19 05/23/19 Rx levetiracetam 750 mg tablet 1,500 mg PO BID 30 Days #120 tab 05/20/19 05/23/19 Rx Patient History Medical History Abnormal finding on mammography Asthma STABLE Cirrhosis NON-ALCOHOLIC FATTY LIVER DISEASE Depression Dysphagia GERD (gastroesophageal reflux disease) CONTROLLED Hepatic encephalopathy HX; ON LACTULOSE/XIFAXAN Hx of migraines Hyperammonemia (Acute) Hypothyroidism Myoclonic seizure "FREQUENT MYOCLONIC SEIZURES" FOLLOWS WITH DR. YANG Pancytopenia CHRONIC Parkinsonism (Acute) Pneumonia (Acute) Polydipsia (Chronic) Seizure disorder (05/26/11) + PSEUDOSEIZURES Spleen enlargement (Acute) Surgical History History of ankle surgery B/L History of appendectomy History of cholecystectomy History of colonoscopy History of esophagogastroduodenoscopy (EGD) History of hysterectomy History of kyphoplasty History of surgery on arm LEFT History of tonsillectomy History of tooth extraction Hx of carpal tunnel repair B/L Hx of cataract extraction B/L S/P laminectomy lumbar spine S/P nasal surgery nasal bone fracture repair Family History Other Adopted No pertinent family history Social History Preferred Language: Japanese Communication Ability: Effective Visual Impairment: No Limitations Early Childhood Associate Teacher Required: No Beliefs That Will Affect Care: None marital status: Current Living Situation: Spouse Current Living Situation Comment: Lives with in apartment current occupational status: unemployed and disabled Feels Safe at Home: Yes Smoking Status: Never smoker Second Hand Exposure: No ; Hx Alcohol Use: No Hx Substance Use: No Seatbelt Use: always Review of Systems Review of Systems: All systems reviewed & are unremarkable except as noted in HPI & below Physical Exam Constitutional: + ill appearing (Chronic) and + overweight; + not healthy appearing ENMT: external ear and nose normal, oropharynx normal Neck: trachea midline, no thyromegaly Respiratory: normal respiratory effort, lungs clear to auscultation Cardiovascular: RRR, no murmur, no edema Gastrointestinal (Abdomen): normal bowel sounds, soft, nontender, no hepatosplenomegaly Skin: no rashes, warm and dry Psychiatric: Orientation: alert and oriented x 3 Results & Data ([facility]) Vital Signs (Past 12 Hours) Vital Signs Temp Pulse Resp BP Pulse Ox 05/24/19 15:25 36.8 C 95 H 20 135/74 98 05/24/19 07:31 36.7 C 77 16 126/75 97 PG Care Time/CCT Total # of Minutes Spent Total Time Spent with Patient: Total time spent is greater than 50% in coordination of care (as documented) at patient's floor/unit and/or counseling patient: Coding Level of Care Code 34253 Initial Inpt Care Lvl 3 Diagnoses Liver cirrhosis secondary to STEVE K75.81; K74.60 Hyperammonemia E72.20 Gastroparesis K31.84
[2019-05-24] MEDS ORDERED: TRAZODONE HCL 50 MG TAB PO PRN (17:45)
[2019-05-25] MEDS: PROMETHAZINE HCL 25 MG TAB PO PRN (00:31)
[2019-05-25] MEDS: HEPARIN 100 UNIT/ML 5ML FLUSH FLUSH PRN ×3 (01:57→16:43)
[2019-05-25 02:22] LABS: Basophils # (auto) 0.05 K/uL (0-0.2); Basophils % (auto) 1.1 %; Eosinophils % (auto) 4.3 %; Hematocrit (blood only) 30.3 % (37-47); Hemoglobin 10.8 g/dL (12.0-16.0); Immature Granulocytes # (auto) 0.01 K/uL (0.00-0.02); Immature Granulocytes % (auto) 0.2 %; Lymphocytes # (auto) 1.52 K/uL (1.2-3.4); Lymphocytes % (auto) 32.3 %; Mean Corpuscular Hemoglobin 36.2 pg (25-34); Mean Corpuscular Hgb Conc 35.6 g/dL (32-36); Mean Corpuscular Volume 101.7 fL (80-100); Monocytes # (auto) 0.47 K/uL (0.11-0.59); Neutrophils # (auto) 2.45 K/uL (1.4-6.5); Neutrophils % (auto) 52.1 %; Platelet Count 101 K/uL (130-400); RDW Coefficient of Variation 13.6 % (11.5-14.5); RDW Standard Deviation 50.1 fL (36.4-46.3); Red Blood Count 2.98 M/uL (4.2-5.4)
[2019-05-25 02:54] LABS: Albumin Level 2.8 gm/dl (3.4-5.0); BUN Creatinine Ratio 11.4 (10-20); Calcium 7.7 mg/dl (8.5-10.1); Creatinine Clr Calc Pharmacy 122.5 ml/min; Est GFR (African American) 126.4; Est GFR (Non-African American) 109.1; Magnesium 1.5 mg/dl (1.8-2.4); Potassium 3.5 mmol/L (3.5-5.1)
[2019-05-25 02:57] LABS: Bilirubin,Total 2.1 mg/dl (0.2-1); Globulin 2.8 gm/dl (2.5-4.0); Phosphorus 2.8 mg/dl (2.5-4.9); Total Protein 5.6 gm/dl (6.4-8.2)
[2019-05-25 03:13] LABS: Ovalocytes 1+
[2019-05-25] MEDS: LEVOTHYROXINE SODIUM 75 MCG TABLET PO SCH (05:45)
[2019-05-25] MEDS: MAGNESIUM SULFATE / D5W 1 GM/100 ML BAG IV SCH ×2 (08:59→10:03)
[2019-05-25] MEDS: LACTULOSE SYRUP 20 GM/30 ML UDC PO SCH ×2 (09:05→13:41)
[2019-05-25] MEDS: LORATADINE 10 MG TAB PO SCH (09:05)
[2019-05-25] MEDS: FAMOTIDINE 40 MG TABLET PO SCH (09:05)
[2019-05-25] MEDS: levETIRAcetam 500 MG TAB PO SCH (09:06)
[2019-05-25] MEDS: UMECLIDINIUM BROMIDE 62.5MCG/BLISTER 7 PUFFS/INHALER INH SCH (09:06)
[2019-05-25] MEDS: OXcarbazepine 150 MG TABLET PO SCH (09:06)
[2019-05-25] MEDS: PANTOprazole 40 MG TAB PO SCH (09:06)
[2019-05-25] MEDS: SPIRONOLACTONE 25 MG TAB PO SCH (09:06)
[2019-05-25] MEDS: TOPIRAMATE 100 MG TAB PO SCH (09:06)
[2019-05-25] MEDS: MAGNESIUM OXIDE 400 MG TAB PO SCH (09:06)
[2019-05-25] MEDS: FLUTICASONE/VILANTEROL 100/25MCG 14 PUFFS/INHALER INH SCH (09:07)
[2019-05-25] MEDS: INSULIN ASPART 100 UNITS/ML 3 ML PEN SC SCH ×2 (09:10→13:42)
[2019-05-25] MEDS: INSULIN GLARGINE SOLOSTAR 100 UNITS/ML 3 ML PEN SC SCH (09:13)
--- NOTE | 2019-05-25 11:38 | Discharge Summary ---
Date of Service May 25, 2019 Admission HPI Per Admitting Provider Marcelle Munson is a 53-year-old female with multiple medical problems most notably cirrhosis secondary to STEVE with chronically elevated ammonia level, diabetes/depression/asthma/hypothyroidism. She was seen in the ER on 05/17/19 with complaint of seizures at home. She was loaded with Keppra and her Trileptal was increased from 900 to 1200 mg daily. She presented to the ER yesterday with her with complaint of confusion/altered mental status and somnolence ongoing for the last three days with acute worsening yesterday. also reported that she has been shaking her head more and doing a lipsmacking movement and was having frequent liquid stools. Patient clinically improved during her time in the ER and was ultimately discharged home in stable condition. reports that while at home the patient was able to ambulate and function however, was communicating less than normal. This morning, she was using the bedside commode and she slipped off the bed during transfer striking her left forearm on the commode. No additional complaints at this time. ER: Normal saline x500 mL Principal Diagnosis Altered Mental Status Discharge Exam Constitutional WD/WN, vitals as above cooperative and comfortable Eyes PERRL, conjunctivae normal, anicteric sclerae ENMT external ear and nose normal, oropharynx normal Neck normal visual inspection and trachea midline Respiratory + abnormal respiratory effort (poor respiratory effort), no respiratory distress and no labored breathing Auscultation: no wheezes Cardiovascular Rate/Rhythm: regular rate and regular rhythm Extremities: no calf tenderness Gastrointestinal (Abdomen) Percussion/Palpation: abdomen soft; abdomen nontender, no guarding and abdomen not rigid Musculoskeletal Head/Neck/Chest: normocephalic and head atraumatic Skin no rashes, warm and dry Neurologic moves all extremities and awake Psychiatric A+Ox3, euthymic affect Discharge Data Allergies Allergy/AdvReac Type Severity Reaction Status Date / Time metronidazole Allergy Severe SEIZURE Verified 05/23/19 09:18 tramadol Allergy Severe SEIZURES Verified 05/23/19 09:18 amoxicillin Allergy Intermediate HIVES; Has Verified 05/23/19 09:18 tolerated cephalosporins (Rocephin, Ceftin,Keflex baclofen Allergy Intermediate RASH Verified 05/23/19 09:18 butalbital Allergy Intermediate HIVES Verified 05/23/19 09:18 cat dander Allergy Intermediate Hives Verified 05/23/19 09:18 ceftriaxone [From Rocephin] Allergy Intermediate Hives Verified 05/23/19 09:18 clarithromycin Allergy Intermediate RASH Verified 05/23/19 09:18 clavulanic acid Allergy Intermediate Diarrhea Verified 05/23/19 09:18 dicyclomine Allergy Intermediate HIVES Verified 05/23/19 09:18 dog dander Allergy Intermediate Hives Verified 05/23/19 09:18 horse dander Allergy Intermediate Hives Verified 05/23/19 09:18 Penicillins Allergy Intermediate RASH; has Verified 05/23/19 09:18 tolerated cephs (Rocephin, Keflex, Ceftin) pollen extracts Allergy Intermediate Hives Verified 05/23/19 09:18 Tetracyclines Allergy Intermediate DOXYCYCLINE Verified 05/23/19 09:18 -HIVES adhesive Allergy Mild RASH, Verified 05/23/19 09:18 DUODERM=RED,ITCHY grape Allergy Mild Nausea Verified 05/23/19 09:18 sulindac Allergy Mild ALLERGY Verified 05/23/19 09:18 LISTED "CLONDORAL"--HIVES azithromycin Allergy Unknown Verified 05/23/19 09:18 Cephalosporins AdvReac Severe TURNS Verified 05/23/19 09:18 STOOL VERY DARK furosemide AdvReac Severe HIVES Verified 05/23/19 09:18 metoclopramide AdvReac Severe SEIZURES Verified 05/23/19 09:18 cefdinir AdvReac Intermediate Diarrhea Verified 05/23/19 09:18 blueberry AdvReac Mild STOMACH Verified 05/23/19 09:18 PAIN celecoxib AdvReac Mild HIVES Verified 05/23/19 09:18 Consultations 05/23/19 11:30 ED Decision to Admit Stat 05/23/19 14:32 Consult Neurology Routine 05/24/19 10:01 Consult Gastroenterology Routine Ordered Studies 05/23/19 09:44 CT head/brain wo con Stat Hospital Course (1) Confusion: Marcelle Munson is a 53 y/o female with numerous co-medical comorbidities was brought in to the ED for AMS/Confusion. She had resolution of her symptoms when evaluated morning after ED admission/visit. - History of hepatic encephalopathy with chronically elevated Ammonia blood levels, however, elevated levels in blood do not represent elevated levels in brain. Not sure if this was exact cause or if electrolyte abnormalities in setting of dehyration were superimposed. - Other etiologies discussed including hyponatremia and dehydration in setting of fragile complex patient with diuretic and Lactulose, vomiting causing fluid loses. She appears to be back to baseline and only significant change in lab values was correction of her hyponatremia. Which remained stable without further issues with mentation. - Denied recent seizure within past 48 hours to be explained as post-ictal - Spouse stated they check blood sugars and haven't had any low readings, but he also notes that home reads might not be accurate. Also notes that her PO intake in the morning is poor in setting of insulin dependence with concern for hypoglycemia. tobacco educator was consulted to see patient and patient was encouraged to increase PO morning intake. Code Status: Full Code DVT ppx: SCDs FENGI: Low Sodium/Carb consistent; c/w home Pepcid 40mg daily and Pantoprazole 40mg PO daily Dispo: Home with PT recs (2) Encephalopathy, hepatic: - Noted to have chronic elevation of Ammonia levels - Cirrhosis secondary to STEVE - Continue with Lactulose 45mL PO daily - Continue with Xifaxan 550mg PO BID - GI consulted to ensure Lactulose and Xifaxan medications are appropriate as dehydration from GI losses could be cause of AMS/confusion. Which they concluded to continue with current medication regimens. (3) Hyponatremia: - 135 on presentation; on 05/24 144 with resolution of symptoms, then 05/25 141 and remained at neuro baseline without return of AMS. - Most likely from GI loses (4) Liver cirrhosis secondary to STEVE: noted in past history leading to her chronically elevated ammonia levels. (5) Controlled type 2 diabetes mellitus, with long-term current use of insulin: Consulted tobacco educator and cyber forensics analyst. Concern that patient might be having hypoglycemic spells that could be cause of confusion. Her A1C on 04/06/19 was 4.8 and in fact might be too well controlled predisposing patient to hypoglycemic episodes. (6) Seizure disorder: Neurology was consulted and patient appears stable from her seizure disorder standpoint Continue with home medications - Levetiracetam 1,500mg PO BID - Oxcarbazepine 600mg PO BID - topiramate 100 mg BID (7) Tremor: - Chronic Mild bilateral upper extremity postural and intention tremor; not consistent with asterixis. (8) Migraines: Noted history of, no current complaints noted to me during stay. (9) Fall: Work up provided in ED did not show any significant injuries. Negative xray for fractures of left forearm No complaints of pain. (10) Pancytopenia: - Chronic - No signs of bleeding while here. Total Time Total Time Spent Total Time Spent (In Minutes): 45 Total Time Includes: Examination of the Patient, Discharge Planning, Medication Reconciliation and Communication With Other Providers Discharge Plan Discharge Items Patient Disposition: Home - Self-Care Reason For Visit: AMS Discharge Diagnosis: Altered Mental Status; Activity: Resume your previous activity Non-emergency contact: Primary Care Provider Call non-emergency contact if: you have any medication questions and your symptoms worsen Follow-up/Referrals: Balaji Zaragoza, [Primary Care Provider] - 06/01/19 1:30 pm Diet: Carb Consistent or DM2 Addtl Attending Provider Instructions: Mrs. Munson, maryann were admitted for confusion/altered mental status. We believe this was caused by dehydration and low sodium levels. Already having a history of hepatic encephalopathy from your cirrhosis, dehydration can easily make you confused in your fragile state of health. It is important that you drink plenty of water in place of soda/sugary beverages. Also, make sure you eat an adequate amount of food to keep your blood sugars from being dangerously low. Low blood sugars will make you act confused. Please continue all other of your medications as previously directed. There are no current medication changes from your visit. As discussed with the early childhood educator aide, aim for conservative blood glucose levels, as Marcelle has difficulty knowing when her blood sugars are too low. Call the endo office when her blood sugar levels are >200 or with low levels (<80). Pending Studies at Discharge: Yes (topiramate, keppra levels) Stand-Alone Forms: [facility] Medications and DC Order Prescriptions: Continued topiramate 100 mg tablet 100 mg PO BID Qty: 60 RF: 5 pen needle, diabetic [BD Ultra-Fine Mini Pen Needle] 31 gauge x 3/16" needle See Rx Instructions .ROUTE .COMPLEX Qty: 100 RF: 0 levothyroxine 75 mcg tablet 75 mcg PO QAM Qty: 30 RF: 5 Incruse Ellipta 62.5 mcg/actuation blister with device 1 puffs INH DAILY Qty: 30 RF: 6 oxcarbazepine 600 mg tablet 600 mg PO BID 30 Days Qty: 60 RF: 4 levetiracetam 750 mg tablet 1,500 mg PO BID 30 Days Qty: 120 RF: 2 Novolog Flexpen U-100 Insulin 100 unit/mL (3 mL) insulin pen See Rx Instructions SQ .COMPLEX RF: 0 Refresh Optive Advanced 0.5-1-0.5 % drops 1 drops OP BID RF: 0 melatonin 10 mg capsule 15 mg PO HS RF: 0 famotidine 40 mg tablet 40 mg PO DAILY RF: 0 epinephrine [EpiPen 2-Garret] 0.3 mg/0.3 mL auto-injector 0.3 mg IM Q10M PRN (Reason: Anaphylaxis) RF: 0 Breo Ellipta 100-25 mcg/dose blister with device 1 puffs INH DAILY Qty: 28 RF: 11 albuterol sulfate 90 mcg/actuation HFA aerosol inhaler 2 puffs INH 6XD PRN (Reason: shortness of breath or wheezing) Qty: 8 RF: 11 lactulose 20 gram/30 mL solution 45 ml PO DAILY RF: 0 lecithin 1,200 mg capsule 1,200 mg PO DAILY RF: 0 loratadine 10 mg tablet 10 mg PO DAILY RF: 0 ipratropium-albuterol 0.5 mg-3 mg(2.5 mg base)/3 mL solution for nebulization 3 ml INH QID PRN (Reason: Shortness Of Breath) RF: 0 magnesium oxide 500 mg capsule 500 mg PO DAILY RF: 0 multivitamin [Multiple Vitamins] Tablet 1 tab PO QDL RF: 0 spironolactone 50 mg tablet 25 mg PO QAM RF: 0 zinc 50 mg Tablet 50 mg PO DAILY RF: 0 Tresiba FlexTouch U-100 100 unit/mL (3 mL) insulin pen 10 units subcut QAM RF: 0 ibuprofen 200 mg tablet 400 mg PO HS RF: 0 vitamin A 8,000 unit Capsule 8,000 unit PO QDL RF: 0 vitamin B complex Tablet 1 tab PO QDL RF: 0 cholecalciferol (vitamin D3) [Vitamin D3] 1,000 unit Capsule 1,000 unit PO QDL RF: 0 Probiotic 3 billion cell Capsule 0 mmu cells PO QDL RF: 0 promethazine 25 mg tablet 25 mg PO Q6H PRN (Reason: sedation) Qty: 12 RF: 0 omeprazole 40 mg capsule,delayed release(DR/EC) 40 mg PO DAILY RF: 0 Xifaxan 550 mg tablet 550 mg PO BID RF: 0 cranberry 400 mg Capsule 400 mg PO DAILY RF: 0 Discharge Orders: Discharge Order (Routine); Ordered 05/25/19 Ordered By: Chyna Chahal/Other Patient Handouts: Diabetes Manager Aviation Complications, Falls Risks Prevent Admission Data Admit Date/Time: 05/23/19 12:09 Attending Provider: Dmaon Madrigal Admit Provider: Amalia Beatty Primary Care Provider: Balaji Zaragoza Other Providers: Amalia Beatty ; Nicole Leonard ; Freddie Yoo Other Interventions: Discharge Summary Assessment (RN) Last Done: 05/25/19 15:50 DC Date/Time DO NOT enter until pt leaves facility: 05/25/19 17:04 Supervising Physician Co-Signing Physician Notes Attending attestation Pt seen and examined in concert with Dr. Butt. In agreement with the documented findings as noted in the resident documentation with any exceptions or additions as noted here. Resting comfortably in bed without complaint and tolerating POI well. Decreased frequency of BM per patient. On examination, S1/S2 nl RRR no MCG. CTAB. Abd NT/ND BS+ve Altered mental status in the setting of hepatic encephalopathy, dehydration and DMII - neurology, GI consultation appreciated - continue rifaximin with lactulose titrated to 3 BM per day. Patient responded positively to DM educator re: meal planning, appropriate caloric intake and glucose monitoring. Would follow closely in outpatient as PO intake has been spotty per patient history and A1c has been < 5% in hospital records. Else see resident documentation as noted. Time spent: 25 minutes. Resident Activity Tracking Resident Involvement: Resident Care Provided Care Provided: Adult Hospital Medicine
[2019-05-25] MEDS: RIFAXIMIN 550 MG TABLET PO SCH (11:59)
[2019-05-25] MEDS: ZINC SULFATE 220 MG CAPSULE PO SCH (11:59)
[2019-05-26 15:39] LABS: Levetiracetam Keppra 35.4 mcg/mL (12.0-46.0); Topiramate 4.9 mcg/mL (see note)
== END 2019-05-25 17:04 | disposition home or self-care (01) | DRG 442 ==
LOC: ED 09:11 → SUATTDRO 12:09 → 4W 12:09 → 3W 05-24 19:10

== ENCOUNTER 2019-09-17 13:38 | Observation (INO) ==
[2019-09-17] MEDS ORDERED: SODIUM CHLORIDE 0.9% 1000ML 1,000 ML IV SCH (14:30)
--- NOTE | 2019-09-17 14:38 | Emergency Department Note ---
History of Present Illness General Chief complaint: Neuro Symptoms/Deficit Stated complaint: OUT OF IT, CANT MOVE AROUNND Time Seen by Provider: 09/17/19 14:18 Source: patient and family Mode of arrival: ambulatory Limitations: altered mental status History of Present Illness Maximum Pain Intensity: 0 This patient is brought in by her after having increasing altered mental status over the last couple days. She is well-known to the emergency department and she gets like this when her ammonia gets high typically. He says she is had no fever. He does tend to fall but has had no recent fall though she has a bruise above her left eye. She is in no cough or any definite COVID exposure or symptoms. She is a decreased appetite and decreased urine output since yesterday evening. She is had no focal complaints or pain. She recently saw a liver specialist in [place] who ordered a 24-hour copper test Home Medications Home Medications Medication Instructions Recorded Confirmed Type multivitamin [Multiple Vitamins] 1 tab PO QDL 12/26/17 09/17/19 History Probiotic 0 mmu cells PO QDL 09/20/18 09/17/19 History cholecalciferol (vitamin D3) 1,000 unit PO QDL 09/20/18 09/17/19 History [Vitamin D3] vitamin A 8,000 unit PO QDL 09/20/18 09/17/19 History vitamin B complex 1 tab PO QDL 09/20/18 09/17/19 History promethazine 25 mg PO Q6H PRN #12 tab 10/27/18 09/17/19 Rx cranberry 400 mg PO BID 02/04/19 09/17/19 History zinc 50 mg PO QDL 02/09/19 09/17/19 History insulin aspart U-100 100 unit/mL See Rx Instructions SQ .COMPLEX 03/30/19 09/17/19 History (3 mL) subcutaneous pen insulin degludec 100 unit/mL (3 10 units SUBCUT QAM ml 03/30/19 09/17/19 History mL) subcutaneous pen melatonin 10 mg capsule 15 mg PO HS cap 03/30/19 09/17/19 History epinephrine 0.3 mg/0.3 mL 0.3 mg IM Q10M PRN 04/02/19 09/17/19 History injection, auto-injector lecithin 1,200 mg capsule 1,200 mg PO QDL 04/29/19 09/17/19 History loratadine 10 mg tablet 10 mg PO QAM 04/29/19 09/17/19 History pen needle, diabetic 31 gauge x See Rx Instructions .ROUTE 06/02/19 09/17/19 Rx 06/13" .COMPLEX #500 ea magnesium chloride [Slow-Mag] 143 mg PO QDL 06/10/19 09/17/19 History rizatriptan 10 mg disintegrating 10 mg PO .COMPLEX PRN 30 Days #9 07/08/19 09/17/19 Rx tablet tab spironolactone 100 mg tablet 100 mg PO QAM 30 Days #30 tab 07/14/19 09/17/19 Rx tyhvzgbyqhrdylacgraloa-kfggozfp-rimzmjef 2 drops OP TID #10 ml 07/26/19 09/17/19 Rx 80 0.5 %-1 %-0.5 % eye drops sodium chloride 0.65 % nasal spray 1 sprays INTNAS BID PRN #15 ml 07/26/19 09/17/19 Rx aerosol ipratropium 0.5 mg-albuterol 3 mg 3 ml INH QID PRN #90 ml 07/30/19 09/17/19 Rx (2.5 mg base)/3 mL nebulization soln omeprazole 40 mg capsule,delayed 40 mg PO QAM #90 cap 08/02/19 09/17/19 Rx release terconazole 1 appl PV HS 08/13/19 09/17/19 History lactulose 20 gram/30 mL oral 30 ml PO QAM #1500 ml 08/17/19 09/17/19 Rx solution levothyroxine 50 mcg tablet 50 mcg PO DAILY #30 tab 09/01/19 09/17/19 Rx rifaximin 550 mg tablet 550 mg PO BID #60 tab 09/06/19 09/17/19 Rx levetiracetam 750 mg tablet 1,500 mg PO BID 30 Days #120 tab 09/09/19 09/17/19 Rx oxcarbazepine 300 mg tablet 300 mg PO .COMPLEX #90 tab 09/09/19 09/17/19 Rx topiramate 100 mg tablet 100 mg PO BID #60 tab 09/09/19 09/17/19 Rx Allergies Allergy/AdvReac Type Severity Reaction Status Date / Time metronidazole Allergy Severe SEIZURE Verified 09/17/19 16:46 tramadol Allergy Severe SEIZURES Verified 09/17/19 16:46 amoxicillin Allergy Intermediate HIVES; Has Verified 09/17/19 16:46 tolerated cephalosporins (Rocephin, Ceftin,Keflex baclofen Allergy Intermediate RASH Verified 09/17/19 16:46 butalbital Allergy Intermediate HIVES Verified 09/17/19 16:46 cat dander Allergy Intermediate Hives Verified 09/17/19 16:46 ceftriaxone [From Rocephin] Allergy Intermediate Hives Verified 09/17/19 16:46 clarithromycin Allergy Intermediate RASH Verified 09/17/19 16:46 clavulanic acid Allergy Intermediate Diarrhea Verified 09/17/19 16:46 dicyclomine Allergy Intermediate HIVES Verified 09/17/19 16:46 dog dander Allergy Intermediate Hives Verified 09/17/19 16:46 horse dander Allergy Intermediate Hives Verified 09/17/19 16:46 pollen extracts Allergy Intermediate Hives Verified 09/17/19 16:46 Tetracyclines Allergy Intermediate DOXYCYCLINE Verified 09/17/19 16:46 -HIVES adhesive Allergy Mild RASH, Verified 09/17/19 16:46 DUODERM=RED,ITCHY sulindac Allergy Mild ALLERGY Verified 09/17/19 16:46 LISTED "CLONDORAL"--HIVES azithromycin Allergy Unknown Verified 09/17/19 16:46 Cephalosporins AdvReac Severe TURNS Verified 09/17/19 16:46 STOOL VERY DARK furosemide AdvReac Severe HIVES Verified 09/17/19 16:46 levofloxacin [From Levaquin] AdvReac Severe Vomiting Verified 09/17/19 16:46 metoclopramide AdvReac Severe SEIZURES Verified 09/17/19 16:46 paroxetine [From Paxil] AdvReac Severe Vomiting Verified 09/17/19 16:46 cefdinir AdvReac Intermediate Diarrhea Verified 09/17/19 16:46 celecoxib AdvReac Mild HIVES Verified 09/17/19 16:46 Past Med/Surg History Surgical History History of ankle surgery B/L History of appendectomy History of cholecystectomy History of colonoscopy History of esophagogastroduodenoscopy (EGD) History of kyphoplasty History of surgery on arm LEFT History of tooth extraction Hx of carpal tunnel repair B/L Hx of cataract extraction B/L S/P laminectomy lumbar spine S/P nasal surgery nasal bone fracture repair S/P [facility] (1997) Family History Other Adopted No pertinent family history Social History Preferred Language: Kosovan Communication Ability: Effective Visual Impairment: No Limitations Channeler Insole Required: No Beliefs That Will Affect Care: None marital status: Current Living Situation: Spouse Current Living Situation Comment: Lives with in apartment current occupational status: unemployed and disabled Feels Safe at Home: Yes Smoking Status: Never smoker Second Hand Exposure: No ; Hx Alcohol Use: No Hx Substance Use: No Seatbelt Use: always Review of Systems A total of 10 systems reviewed and were otherwise negative Physical Exam Vital Signs Vital Signs - 24 hr 09/17/19 13:40 09/17/19 15:09 09/17/19 15:14 Temperature 36.9 C Temperature Source Oral Pulse Rate 100 H 96 H 94 H Pulse Rate from SpO2 Sensor 95 H 94 H Respiratory Rate 20 20 19 Respiratory Effort / Characteristics Non-Labored Respiratory Depth Normal Blood Pressure 130/105 H 133/83 Blood Pressure Mean 113 101 Pulse Oximetry 99 100 100 Oxygen Delivery Method Room Air Sepsis Recent Fever Within 48 Hours No Sepsis Action Taken by Nursing No Action Required 09/17/19 15:17 09/17/19 15:30 09/17/19 16:21 Temperature Temperature Source Pulse Rate 90 91 H Pulse Rate from SpO2 Sensor 91 H 91 H Respiratory Rate 18 19 Respiratory Effort / Characteristics Respiratory Depth Blood Pressure 138/66 Blood Pressure Mean 83 Pulse Oximetry 100 100 100 Oxygen Delivery Method Room Air Sepsis Recent Fever Within 48 Hours Sepsis Action Taken by Nursing 09/17/19 16:22 09/17/19 16:30 09/17/19 17:00 Temperature Temperature Source Pulse Rate 91 H 93 H Pulse Rate from SpO2 Sensor 91 H 93 H Respiratory Rate 19 22 23 Respiratory Effort / Characteristics Respiratory Depth Blood Pressure 131/55 L 126/69 131/65 Blood Pressure Mean 78 78 96 Pulse Oximetry 100 100 Oxygen Delivery Method Sepsis Recent Fever Within 48 Hours Sepsis Action Taken by Nursing General: Well developed well nourished middle-aged female who is sleepy and minimally arousable but protecting her airway in no acute distress, breathing comfortably on room air. HEENT: Normal cephalic atraumatic. Pupils are equal round and reactive to light. Extraocular movements are intact. Oropharynx is pink with moist mucous membranes. No swelling of the mouth lips or tongue. Neck: Supple with a midline trachea. No meningeal signs or stiffness, no JVD or bruits. No Stridor. Chest: Clear to auscultation bilaterally. No wheezes or rhonchi. No increased work of breathing. Heart: Regular rate and rhythm without murmurs or gallops. Abdomen: Soft nontender, nondistended without rebound guarding or rigidity. Extremities: No cyanosis clubbing or edema. No calf tenderness or assymetry Spine/Back. Non tender to palpation. No CVA tenderness Skin: Good turgor without rashes. Neurologic exam: Minimally arousable to sternal rub and unable to give further exam Course Administered Medications Discontinued Medications Sodium Chloride (Nss 1000ml) 1,000 mls @ 999 mls/hr IV .Q1H1M SHEBA Stop: 09/17/19 15:30 Last Infusion: 09/17/19 16:30 Dose: 0 mls/hr Documented by: [id number] Admin: 09/17/19 15:23 Dose: 999 mls/hr Documented by: [id number] Sodium Chloride (Nss) 500 mls @ 999 mls/hr IV .Q31M ONE Stop: 09/17/19 16:44 Last Infusion: 09/17/19 19:24 Dose: 0 mls/hr Documented by: [id number] Admin: 09/17/19 17:11 Dose: 999 mls/hr Documented by: [id number] Medical Decision Making Differential Diagnosis Elevated ammonia, sepsis, intracranial process, electrolyte or metabolic abnormality, dehydration, cardiac disease, hypoglycemia, hyperglycemia Medical Records Attestation: I reviewed the patient's medical records. Home Medications Current Medication List: was personally reviewed by me Laboratory Data Attestation: I reviewed the patient's lab results. Result diagrams: 09/17/19 15:00 09/17/19 15:00 Lab Results 09/17/19 09/17/19 09/17/19 Range/Units 15:00 15:00 15:00 WBC 5.14 (4.8-10.8) K/uL RBC 3.11 L (4.2-5.4) M/uL Hgb 11.1 L (12.0-16.0) g/dL Hct 31.5 L (37-47) % MCV 101.3 H (80-100) fL MCH 35.7 H (25-34) pg MCHC 35.2 (32-36) g/dL RDW Std Deviation 51.2 H (36.4-46.3) fL RDW Coeff of Irina 14.1 (11.5-14.5) % Plt Count 110 L (130-400) K/uL MPV 10.5 H (7.4-10.4) fL Immature Gran % (Auto) 0.0 % Neut % (Auto) 70.6 % Lymph % (Auto) 18.3 % Cook % (Auto) 9.1 % Eos % (Auto) 1.8 % Baso % (Auto) 0.2 % Immature Gran # (Auto) 0.00 (0.00-0.02) K/uL Neut # (Auto) 3.63 (1.4-6.5) K/uL Lymph # (Auto) 0.94 L (1.2-3.4) K/uL Cook # (Auto) 0.47 (0.11-0.59) K/uL Eos # (Auto) 0.09 (0-0.5) K/uL Baso # (Auto) 0.01 (0-0.2) K/uL PT 13.7 H (9.0-12.0) Seconds INR 1.3 H (0.9-1.1) Sodium 140 (136-145) mmol/L Potassium 3.9 (3.5-5.1) mmol/L Chloride 112 H (98-107) mmol/L Carbon Dioxide 20 L (21-32) mmol/L Anion Gap 8.0 (3-11) BUN 13 (7-18) mg/dl Creatinine 0.51 L (0.6-1.2) mg/dl Est Cr Clr Drug Dosing Not Reportable Est GFR ( Amer) 127.2 Est GFR (Non-Af Amer) 109.8 BUN/Creatinine Ratio 25.8 H (10-20) Glucose 194 H (70-99) mg/dl Lactate (0.4-2.0) mmol/L Calcium 8.5 (8.5-10.1) mg/dl Magnesium 1.7 L (1.8-2.4) mg/dl Total Bilirubin 2.3 H (0.2-1) mg/dl AST 44 H (15-37) U/L ALT 41 (12-78) U/L Alkaline Phosphatase 150 H (45-117) U/L Ammonia (11-32) umol/L Troponin I < 0.015 (0-0.045) ng/ml Total Protein 6.2 L (6.4-8.2) gm/dl Albumin 3.1 L (3.4-5.0) gm/dl Globulin 3.1 (2.5-4.0) gm/dl Albumin/Globulin Ratio 1.0 (0.9-2) TSH 0.284 L (0.300-4.500) uIu/ml Free T4 0.88 (0.8-1.6) ng/dl Urine Color Urine Appearance (Clear) Urine pH (4.5-7.5) Ur Specific [place] (1.000-1.030) Urine Protein (Negative) Urine Glucose (UA) (Negative) Urine Ketones (Negative) Urine Blood (Negative) Urine Nitrite (Negative) Urine Bilirubin (Negative) Urine Urobilinogen (Negative) Ur Leukocyte Esterase (Negative) 09/17/19 09/17/19 09/17/19 Range/Units 15:00 15:00 17:10 WBC (4.8-10.8) K/uL RBC (4.2-5.4) M/uL Hgb (12.0-16.0) g/dL Hct (37-47) % MCV (80-100) fL MCH (25-34) pg MCHC (32-36) g/dL RDW Std Deviation (36.4-46.3) fL RDW Coeff of Irina (11.5-14.5) % Plt Count (130-400) K/uL MPV (7.4-10.4) fL Immature Gran % (Auto) % Neut % (Auto) % Lymph % (Auto) % Cook % (Auto) % Eos % (Auto) % Baso % (Auto) % Immature Gran # (Auto) (0.00-0.02) K/uL Neut # (Auto) (1.4-6.5) K/uL Lymph # (Auto) (1.2-3.4) K/uL Cook # (Auto) (0.11-0.59) K/uL Eos # (Auto) (0-0.5) K/uL Baso # (Auto) (0-0.2) K/uL PT (9.0-12.0) Seconds INR (0.9-1.1) Sodium (136-145) mmol/L Potassium (3.5-5.1) mmol/L Chloride (98-107) mmol/L Carbon Dioxide (21-32) mmol/L Anion Gap (3-11) BUN (7-18) mg/dl Creatinine (0.6-1.2) mg/dl Est Cr Clr Drug Dosing Est GFR ( Amer) Est GFR (Non-Af Amer) BUN/Creatinine Ratio (10-20) Glucose (70-99) mg/dl Lactate 1.4 (0.4-2.0) mmol/L Calcium (8.5-10.1) mg/dl Magnesium (1.8-2.4) mg/dl Total Bilirubin (0.2-1) mg/dl AST (15-37) U/L ALT (12-78) U/L Alkaline Phosphatase (45-117) U/L Ammonia 105.0 H (11-32) umol/L Troponin I (0-0.045) ng/ml Total Protein (6.4-8.2) gm/dl Albumin (3.4-5.0) gm/dl Globulin (2.5-4.0) gm/dl Albumin/Globulin Ratio (0.9-2) TSH (0.300-4.500) uIu/ml Free T4 (0.8-1.6) ng/dl Urine Color Yellow Urine Appearance Clear (Clear) Urine pH 7.0 (4.5-7.5) Ur Specific [place] 1.009 (1.000-1.030) Urine Protein Negative (Negative) Urine Glucose (UA) Negative (Negative) Urine Ketones Negative (Negative) Urine Blood Negative (Negative) Urine Nitrite Negative (Negative) Urine Bilirubin Negative (Negative) Urine Urobilinogen Negative (Negative) Ur Leukocyte Esterase Negative (Negative) Imaging Data Attestation: I personally reviewed and interpreted this imaging study as follows: My Impression: Chest x-ray: No acute infiltrate, failure, pneumothorax seen Radiologist's Impression: CAT scan of the head: IMPRESSION: There is no hemorrhage, mass effect, or evidence of acute territorial ischemia by CT criteria. Chest x-ray: IMPRESSION: No acute process. ECG Data Attestation: I personally reviewed and interpreted this ECG as follows: Indication: + altered mental status Rate (beats per minute): 95 Rhythm: + normal sinus ECG Intervals/blocks: + Normal QRS, + Normal QT and + Normal GA ECG [place]: + Normal ECG ST segments: + Normal ST segments ECG Findings: no Q waves and no PACs Comparison ECG Date: from (06/10/2019) Change: no significant change Blood Pressure Blood Pressure Findings: Elevated blood pressure Blood Pressure Disposition: elevated BP felt to be situational MDM Narrative This patient is brought in by her she has increasing altered level of consciousness. She is seen here for this in the past and is usually related to ammonia although at this point the differential is broad. She does have a bruise above her left left eyes. I did order CAT scan of her head. Multiple blood testing was obtained including blood cultures. She has an Aport which was accessed and she was given a IV fluid bolus. I ordered urinalysis and culture as well. EKG and chest x-ray were obtained as well. We did check an ammonia level among other multiple blood tests. She was reassessed frequently. Her said her blood sugars been running in the 180s and that was also ordered BSG here. She has no white count or fever to suggest infection. She has no significant electrolyte or metabolic abnormalities acutely. Her lactic acid is not elevated. CAT scan of her head is normal unremarkable. Chest x-ray is unremarkable. Urinalysis is unremarkable. Her labs are significant for an ammonia of 105. She typically gets altered when she gets an elevated ammonia and her thinks this is likely what is going on. When I first saw her, she was completely altered and nonresponsive but she turned around and was awake and talking prior to being seen by the [facility] hospitalist and had no complaints. She will be admitted for further observation and evaluation. Continuous cardiac monitoring. Due to her altered level of consciousness and her complex medical history, an order was placed for continuous cardiac monitoring. She was noted to be in a normal sinus rhythm with a rate of 90 on the monitor Impression & Plan Altered consciousness, Weakness, Encephalopathy due to ammonia, Diabetes Discharge Plan Visit Data *Final* Discharge Date/Time: 09/17/19 19:30 Chief Complaint: Neuro Symptoms/Deficit Stated Complaint: OUT OF IT, CANT VERO [facility] ED Provider: Jorden Doyle Discharge Problem: Altered consciousness, Weakness, Encephalopathy due to ammonia, Diabetes Patient Disposition: Admitted As Inpatient Discharge Instructions Interventions: ED Discharge Assessment Last Done: 09/17/19 19:30 Discharge Problem: Diabetes Qualifiers: 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 type: type 2 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 intermediate card tender insulin use: with assisted use 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 complication status: with other specified complication Qualified Code(s): E11.69 - Type 2 diabetes mellitus with other specified complication
--- NOTE | 2019-09-17 14:56 | XRay Report ---
XR chest 1V portable CLINICAL HISTORY: weakness COMPARISON STUDY: 06/09/2019 FINDINGS: The lungs are clear. Diaphragms are smooth. There is a central catheter in superior vena ca va. Pre-existing postoperative changes to the left humerus. IMPRESSION: No acute process. ACT 112: Negative or not required by law. The above report was generated using voice recognition software. It may contain grammatical, syntax or spelling errors. Electronically signed by: Kenroy Yates M.D. 09/17/2019 2:55 PM
[2019-09-17 15:29] LABS: Basophils # (auto) 0.01 K/uL (0-0.2); Basophils % (auto) 0.2 %; Eosinophils # (auto) 0.09 K/uL (0-0.5); Eosinophils % (auto) 1.8 %; Hematocrit (blood only) 31.5 % (37-47); Hemoglobin 11.1 g/dL (12.0-16.0); Lymphocytes # (auto) 0.94 K/uL (1.2-3.4); Lymphocytes % (auto) 18.3 %; Mean Corpuscular Hemoglobin 35.7 pg (25-34); Mean Corpuscular Hgb Conc 35.2 g/dL (32-36); Mean Corpuscular Volume 101.3 fL (80-100); Mean Platelet Volume 10.5 fL (7.4-10.4); Monocytes # (auto) 0.47 K/uL (0.11-0.59); Monocytes % (auto) 9.1 %; Neutrophils # (auto) 3.63 K/uL (1.4-6.5); Neutrophils % (auto) 70.6 %; Platelet Count 110 K/uL (130-400); RDW Coefficient of Variation 14.1 % (11.5-14.5); RDW Standard Deviation 51.2 fL (36.4-46.3); Red Blood Count 3.11 M/uL (4.2-5.4); White Blood Count 5.14 K/uL (4.8-10.8)
[2019-09-17 15:38] LABS: Alanine Aminotransferase 41 U/L (12-78); Albumin Level 3.1 gm/dl (3.4-5.0); Aspartate Aminotransferase 44 U/L (15-37); BUN Creatinine Ratio 25.8 (10-20); Blood Urea Nitrogen 13 mg/dl (7-18); Calcium 8.5 mg/dl (8.5-10.1); Carbon Dioxide 20 mmol/L (21-32); Chloride 112 mmol/L (98-107); Est GFR (African American) 127.2; Est GFR (Non-African American) 109.8; Glucose 194 mg/dl (70-99); INR 1.3 (0.9-1.1); Magnesium 1.7 mg/dl (1.8-2.4); Potassium 3.9 mmol/L (3.5-5.1); Prothrombin Time 13.7 Seconds (9.0-12.0); Sodium 140 mmol/L (136-145)
[2019-09-17 15:49] LABS: Alkaline Phosphatase 150 U/L (45-117); Bilirubin,Total 2.3 mg/dl (0.2-1); Globulin 3.1 gm/dl (2.5-4.0); Thyroid Stimulating Hormone 0.284 uIu/ml (0.300-4.500); Total Protein 6.2 gm/dl (6.4-8.2); Troponin I < 0.015 ng/ml (0-0.045)
[2019-09-17 16:01] LABS: T4 Free Thyroxine 0.88 ng/dl (0.8-1.6)
--- NOTE | 2019-09-17 16:05 | CT Scan Report ---
CT SCAN OF THE BRAIN WITHOUT IV CONTRAST CLINICAL HISTORY: Change in mental status. COMPARISON STUDY: Multiple prior CT scans of the brain, most recently dated 05/23/2019. TECHNIQUE: Unenhanced axial CT scan of the brain is performed from the vertex to the skull base. A d ose lowering technique was utilized adhering to the principles of ALARA. CT DOSE: 638.56 mGycm FINDINGS: Brain parenchyma: There is asymmetric atrophy of the cerebellum. There is no hemorrhage, mass effect, or evidence of acute territorial ischemia by CT criteria. Braxton-white matter differentiation is prese rved. No extra-axial fluid collection is seen. Ventricles, sulci, cisterns: Normal in configuration. Intracranial vasculature: There is atherosclerotic calcification of the cavernous carotid arteries. Calvarium: Unremarkable. Sinuses and mastoids: The visualized paranasal sinuses are clear. The mastoid air cells are well pneu matized. Orbits: The bony orbits are grossly intact. There are bilateral ocular lens implants. IMPRESSION: There is no hemorrhage, mass effect, or evidence of acute territorial ischemia by CT tricia ch. ACT 112: Negative or not required by law. Electronically signed by: Aiden Randolph M.D. 09/17/2019 4:04 PM
[2019-09-17] MEDS ORDERED: SODIUM CHLORIDE 0.9% 500 ML IV ONE (16:14)
--- NOTE | 2019-09-17 17:24 | History & Physical Report ---
Date of Service September 17, 2019 Assessment & Plan (1) Altered mental state: Patient has recurrent episodes of altered mental state. Suspect related to hepatic encephalopathy but no real correlation with ammonia levels. Usually appears to significantly improve with just restarting her usual med ications. Already appears to be improving in the ER. Monitor for BM, aim 3-4/day. (2) Liver cirrhosis secondary to STEVE: Repeat LFTs in AM. Reports decreased spironolactone use as per due to difficultly dealing with urinating. Not weighing herself at home. Continue rifaximin 550mg PO BID Continue lactulose 20g PO daily -> increase as needed to aim for 3-4 BM/day Low sodium diet (3) Severe persistent asthma: No current exacerbation Previously on multiple maintenance inhalers last admission but unclear why she is not still using these. Currently taking duoneb usually once/day. (4) Myelodysplastic syndrome: Notable history of this (5) Tremor: Noted history of this. 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 Prior neurology visit recommended continuing on current antiseizure regimen, levels have been historically stable. Continue topiramate, Keppra, Trileptal - patient requests own meds - ok to switch if her brings them in (7) Hypothyroidism: Subclinical hyperthyroidism persistently on labs. Will reduce levothyroxine to 25 mcg PO daily and repeat as outpatient in 4-6 weeks. (8) Diabetes: Occasional dip < 80 but does not particularly correlate with these episodes HbA1C 4.8 in Mar Will d/c basal dosing for not and just use insulin correction and carb ratio pending further trend in glucose measurements (9) Chronic reflux esophagitis: Switch omeprazole to pantoprazole as per hospital formulary (10) DVT prophylaxis: Will defer SCDs due to falls risk If staying beyond tomorrow consider chemical prophylaxis Admission and Anticipated Discharge Date Admission Date: 09/17/2019 History of Present Illness Chief Complaint: Altered mental state, generalized weakness Primary Care Provider: DO Milly Bellrigoberto Munson is a 53 year old female well known to the service with liver cirrhosis and recurrent episodes of suspected hepatic encephalopathy. On this occasion her notes deterioration over the last 2 days. Usually in the morning when she first wakes up she is altered but then appears to improve in the afternoon and able to eat and drink normally. He reports she is taking all her regular medications although he decreased the spironolactone himself approximately 2 weeks ago to 50mg PO daily as he noticed with 100mg she is w aking up 3 times a night to urinate. This was not discussed with her liver specialist. He does report her legs are more swollen currently. Not weighing herself at home. This morning she again was altered with decreased responsiveness, normal glucose level on her CGM and he was unable to even get her out of bed. He is unable to compare this occasion to prior episodes when she has come to the ER or admitted to tell me if it is similar or different. He reports she has been having myoclonic seizures but no worse than usual and these consist of her sudden legs collapsing but not her falling over when she is standing up with her walker. She does report recent antibiotics use with levaquin a few weeks ago for UTI although I cannot find charted evidence for this. Allergies Allergy/AdvReac Type Severity Reaction Status Date / Time metronidazole Allergy Severe SEIZURE Verified 09/17/19 16:46 tramadol Allergy Severe SEIZURES Verified 09/17/19 16:46 amoxicillin Allergy Intermediate HIVES; Has Verified 09/17/19 16:46 tolerated cephalosporins (Rocephin, Ceftin,Keflex baclofen Allergy Intermediate RASH Verified 09/17/19 16:46 butalbital Allergy Intermediate HIVES Verified 09/17/19 16:46 cat dander Allergy Intermediate Hives Verified 09/17/19 16:46 ceftriaxone [From Rocephin] Allergy Intermediate Hives Verified 09/17/19 16:46 clarithromycin Allergy Intermediate RASH Verified 09/17/19 16:46 clavulanic acid Allergy Intermediate Diarrhea Verified 09/17/19 16:46 dicyclomine Allergy Intermediate HIVES Verified 09/17/19 16:46 dog dander Allergy Intermediate Hives Verified 09/17/19 16:46 horse dander Allergy Intermediate Hives Verified 09/17/19 16:46 pollen extracts Allergy Intermediate Hives Verified 09/17/19 16:46 Tetracyclines Allergy Intermediate DOXYCYCLINE Verified 09/17/19 16:46 -HIVES adhesive Allergy Mild RASH, Verified 09/17/19 16:46 DUODERM=RED,ITCHY sulindac Allergy Mild ALLERGY Verified 09/17/19 16:46 LISTED "CLONDORAL"--HIVES azithromycin Allergy Unknown Verified 09/17/19 16:46 Cephalosporins AdvReac Severe TURNS Verified 09/17/19 16:46 STOOL VERY DARK furosemide AdvReac Severe HIVES Verified 09/17/19 16:46 levofloxacin [From Levaquin] AdvReac Severe Vomiting Verified 09/17/19 16:46 metoclopramide AdvReac Severe SEIZURES Verified 09/17/19 16:46 paroxetine [From Paxil] AdvReac Severe Vomiting Verified 09/17/19 16:46 cefdinir AdvReac Intermediate Diarrhea Verified 09/17/19 16:46 celecoxib AdvReac Mild HIVES Verified 09/17/19 16:46 Home Medications Home Medications Medication Instructions Recorded Confirmed Type multivitamin [Multiple Vitamins] 1 tab PO QDL 12/26/17 09/17/19 History Probiotic 0 mmu cells PO QDL 09/20/18 09/17/19 History cholecalciferol (vitamin D3) 1,000 unit PO QDL 09/20/18 09/17/19 History [Vitamin D3] vitamin A 8,000 unit PO QDL 09/20/18 09/17/19 History vitamin B complex 1 tab PO QDL 09/20/18 09/17/19 History promethazine 25 mg PO Q6H PRN #12 tab 10/27/18 09/17/19 Rx cranberry 400 mg PO BID 02/04/19 09/17/19 History zinc 50 mg PO QDL 02/09/19 09/17/19 History insulin aspart U-100 100 unit/mL See Rx Instructions SQ .COMPLEX 03/30/19 09/17/19 History (3 mL) subcutaneous pen insulin degludec 100 unit/mL (3 10 units SUBCUT QAM ml 03/30/19 09/17/19 History mL) subcutaneous pen melatonin 10 mg capsule 15 mg PO HS cap 03/30/19 09/17/19 History epinephrine 0.3 mg/0.3 mL 0.3 mg IM Q10M PRN 04/02/19 09/17/19 History injection, auto-injector lecithin 1,200 mg capsule 1,200 mg PO QDL 04/29/19 09/17/19 History loratadine 10 mg tablet 10 mg PO QAM 04/29/19 09/17/19 History pen needle, diabetic 31 gauge x See Rx Instructions .ROUTE 06/02/19 09/17/19 Rx 3/16" .COMPLEX #500 ea magnesium chloride [Slow-Mag] 143 mg PO QDL 06/10/19 09/17/19 History rizatriptan 10 mg disintegrating 10 mg PO .COMPLEX PRN 30 Days #9 07/08/19 09/17/19 Rx tablet tab spironolactone 100 mg tablet 100 mg PO QAM 30 Days #30 tab 07/14/19 09/17/19 Rx wbiufutftwjajqcefmsoer-icrvslns-qnjvnzip 2 drops OP TID #10 ml 07/26/19 09/17/19 Rx 80 0.5 %-1 %-0.5 % eye drops sodium chloride 0.65 % nasal spray 1 sprays INTNAS BID PRN #15 ml 07/26/19 09/17/19 Rx aerosol ipratropium 0.5 mg-albuterol 3 mg 3 ml INH QID PRN #90 ml 07/30/19 09/17/19 Rx (2.5 mg base)/3 mL nebulization soln omeprazole 40 mg capsule,delayed 40 mg PO QAM #90 cap 08/02/19 09/17/19 Rx release terconazole 1 appl PV HS 08/13/19 09/17/19 History lactulose 20 gram/30 mL oral 30 ml PO QAM #1500 ml 08/17/19 09/17/19 Rx solution levothyroxine 50 mcg tablet 50 mcg PO DAILY #30 tab 09/01/19 09/17/19 Rx rifaximin 550 mg tablet 550 mg PO BID #60 tab 09/06/19 09/17/19 Rx levetiracetam 750 mg tablet 1,500 mg PO BID 30 Days #120 tab 09/09/19 09/17/19 Rx oxcarbazepine 300 mg tablet 300 mg PO .COMPLEX #90 tab 09/09/19 09/17/19 Rx topiramate 100 mg tablet 100 mg PO BID #60 tab 09/09/19 09/17/19 Rx Past Med/Surg History Surgical History History of ankle surgery B/L History of appendectomy History of cholecystectomy History of colonoscopy History of esophagogastroduodenoscopy (EGD) History of kyphoplasty History of surgery on arm LEFT History of tooth extraction Hx of carpal tunnel repair B/L Hx of cataract extraction B/L S/P laminectomy lumbar spine S/P nasal surgery nasal bone fracture repair S/P TIFFANIE-BSO (1997) Family History Other Adopted No pertinent family history Social History Preferred Language: Turkmen Communication Ability: Effective Visual Impairment: No Limitations Beauty Consultant Required: No Beliefs That Will Affect Care: None marital status: Current Living Situation: Spouse Current Living Situation Comment: Lives with in apartment current occupational status: unemployed and disabled Other Information That Helps Us Care for You: No Feels Safe at Home: Yes Safety Concerns: Feels Safe At This Time Smoking Status: Never smoker Second Hand Exposure: No ; Hx Alcohol Use: No Hx Substance Use: No Seatbelt Use: always Review of Systems Review of Systems: All systems reviewed & are unremarkable except as noted in HPI & below Physical Exam Constitutional: + ill appearing (chronically); + not well nourished and no acute distress Eyes: + anicteric sclerae; normal pupil size ENMT: external ear and nose normal, oropharynx normal Neck: trachea midline, no thyromegaly Respiratory: normal respiratory effort, lungs clear to auscultation Cardiovascular: Rate/Rhythm: regular rate and regular rhythm Heart Sounds: no murmur Vessels: no JVD Extremities: normal capillary refill and + pedal edema (1+ b/l equal to knees); no calf tenderness Gastrointestinal (Abdomen): Inspection/Auscultation: normal bowel sounds; a bdomen not distended Percussion/Palpation: abdomen soft; abdomen nontender, no guarding and abdomen not rigid Musculoskeletal: Head/Neck/Chest: normocephalic and head atraumatic Skin: no rashes, warm and dry Neurologic: moves all extremities and awake (head bobbing present) Psychiatric: Orientation: alert and oriented x 3 Genitourinary: no CVA tenderness Lymphatic: no cervical or axillary lymphadenopathy Results & Data Results & Data ([facility]) Vital Signs (Past 12 Hours) Vital Signs Temp Pulse Resp BP Pulse Ox 09/17/19 17:00 23 131/65 09/17/19 16:30 93 H 22 126/69 100 09/17/19 16:22 91 H 19 131/55 L 100 09/17/19 16:21 91 H 19 100 09/17/19 15:30 90 18 138/66 100 09/17/19 15:17 100 09/17/19 15:14 94 H 19 100 09/17/19 15:09 96 H 20 133/83 100 09/17/19 13:40 36.9 C 100 H 20 130/105 H 99 Diagnostic Findings XR chest 1V portable IMPRESSION: No acute process. CT SCAN OF THE BRAIN WITHOUT IV CONTRAST IMPRESSION: There is no hemorrhage, mass effect, or evidence of acute territorial ischemia by CT criteria. ECG Indication: altered mental status Rate (beats per minute): 95 Rhythm: normal sinus Findings: no acute ischemic change Comparison ECG Date: from (06/10/2019) Change: no significant change Code Status & VTE Plan Code Status Full as discussed with patient and her VTE Prophylaxis Plan VTE Prophylaxis will be ordered: Yes PG Care Time/CCT Total # of Minutes Spent Total Time Spent with Patient: Total time spent is greater than 50% in coordination of care (as documented) at patient's floor/unit and/or counseling patient: Coding Level of Care Code 45590 OBS Care - Level 3 Diagnoses Altered mental state R41.82 Liver cirrhosis secondary to STEVE K75.81; K74.60 Severe persistent asthma J45.50 Myelodysplastic syndrome D46.9 Tremor R25.1 Seizure disorder G40.909 Hypothyroidism E03.9 Hypothyroidism type: unspecified Diabetes E11.69; Z79.4 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 complication status: with other specified complication 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 continuous churn buttermaker insulin use: with long-term use 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 type: type 2 Chronic reflux esophagitis K21.0 DVT prophylaxis Z29.9 (1) Hypothyroidism Hypothyroidism type: unspecified Qualified Code(s): E03.9 - Hypothyroidism, unspecified (2) Diabetes 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 complication status: with other specified complication 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 continuous churn buttermaker insulin use: with long-term use 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 type: type 2 Qualified Code(s): E11.69 - Type 2 diabetes mellitus with other specified complication; Z79.4 - FDC (current) use of insulin
[2019-09-17 17:25] LABS: Appearance Urine Clear (Clear); Bilirubin Urine Negative (Negative); Blood Urine Negative (Negative); Color Urine Yellow; Glucose Urine UA Negative (Negative); Ketones Urine Negative (Negative); Leukocyte Esterase Urine Negative (Negative); Nitrite Urine Negative (Negative); Protein Urine Negative (Negative); Specific Gravity Urine 1.009 (1.000-1.030); Urobilinogen Urine Negative (Negative)
[2019-09-17] MEDS ORDERED: ALBUT/IPRATROP 3MG/0.5MG NEB 3 ML VIAL NEB PRN (18:03)
--- NOTE | 2019-09-17 19:23 | Electrocardiogram Report ---
Test Reason : Blood Pressure : / mmHG Vent. Rate : 095 BPM Atrial Rate : 095 BPM P-R Int : 184 ms QRS Dur : 100 ms QT Int : 368 ms P-R-T Axes : 037 -05 048 degrees QTc Int : 462 ms Sinus rhythm Confirmed by Kevin Caldera ([id number]) on 09/17/2019 7:22:59 PM Referred By: REFERRED SELF Confirmed By:Marbin Caldera
[2019-09-17] MEDS ORDERED: ONDANSETRON INJ 2 MG/ML 2 ML VIAL IV PRN (20:22)
[2019-09-17] MEDS ORDERED: RIZATRIPTAN BENZOATE 10 MG TAB PO PRN (20:51)
[2019-09-17] MEDS ORDERED: DEXTROSE 50% 50 ML SYRINGE IV PRN (20:57)
[2019-09-17] MEDS ORDERED: GLUCAGON FOR INJ 1 MG VIAL SQ PRN (20:57)
[2019-09-17] MEDS ORDERED: GLUCOSE 10 TABS/TUBE PO PRN (20:57)
[2019-09-17] MEDS ORDERED: GLUCOSE 40% GEL 15 GM TUBE PO PRN (20:57)
[2019-09-17] MEDS ORDERED: CARBOHYDRATES FOR HYPOGLYCEMIA PO PRN (20:57)
[2019-09-17] MEDS ORDERED: MELATONIN 3 MG TAB PO SCH (21:00)
[2019-09-17] MEDS ORDERED: NON-FORMULARY MEDICATION (Cranberry 400 MG) PO SCH (21:00)
[2019-09-17] MEDS ORDERED: OXcarbazepine 150 MG TABLET PO SCH (21:00)
[2019-09-17] MEDS: levETIRAcetam 500 MG TAB PO SCH (21:08)
[2019-09-17] MEDS: TOPIRAMATE 100 MG TAB PO SCH (21:12)
[2019-09-17] MEDS ORDERED: ACETAMINOPHEN 325 MG TAB PO PRN (21:13)
[2019-09-17] MEDS: ARTIFICIAL TEARS OP SCH (21:13)
[2019-09-17] MEDS: INSULIN ASPART 100 UNITS/ML 3 ML PEN SC SCH (21:14)
[2019-09-17] MEDS ORDERED: ACETAMINOPHEN 500 MG TAB PO PRN (21:34)
[2019-09-17] MEDS: RIFAXIMIN 550 MG TABLET PO SCH (21:43)
[2019-09-18] MEDS: HEPARIN 100 UNIT/ML 5ML FLUSH FLUSH PRN ×2 (05:28→15:22)
[2019-09-18 06:18] LABS: Hematocrit (blood only) 26.5 % (37-47); Hemoglobin 9.9 g/dL (12.0-16.0); Mean Corpuscular Hemoglobin 38.4 pg (25-34); Mean Corpuscular Hgb Conc 37.4 g/dL (32-36); Mean Corpuscular Volume 102.7 fL (80-100); RDW Coefficient of Variation 14.9 % (11.5-14.5); Red Blood Count 2.58 M/uL (4.2-5.4); White Blood Count 4.22 K/uL (4.8-10.8)
[2019-09-18 06:29] LABS: Mean Platelet Volume 10.3 fL (7.4-10.4); Platelet Count 95 K/uL (130-400)
[2019-09-18] MEDS ORDERED: LEVOTHYROXINE SODIUM 50 MCG TABLET PO SCH (06:30)
[2019-09-18 07:05] LABS: Albumin Globulin Ratio 1.1 (0.9-2); Albumin Level 2.8 gm/dl (3.4-5.0); BUN Creatinine Ratio 23.6 (10-20); Bilirubin,Total 2.7 mg/dl (0.2-1); Calcium 7.8 mg/dl (8.5-10.1); Creatinine Clr Calc Pharmacy 164.8 ml/min; Est GFR (African American) 129.8; Globulin 2.5 gm/dl (2.5-4.0); Potassium 3.4 mmol/L (3.5-5.1); Total Protein 5.3 gm/dl (6.4-8.2)
[2019-09-18 07:08] LABS: Basophils # (auto) 0.03 K/uL (0-0.2); Basophils % (auto) 0.7 %; Eosinophils # (auto) 0.16 K/uL (0-0.5); Eosinophils % (auto) 3.8 %; Lymphocytes # (auto) 1.63 K/uL (1.2-3.4); Lymphocytes % (auto) 38.6 %; Monocytes # (auto) 0.53 K/uL (0.11-0.59); Monocytes % (auto) 12.6 %; Neutrophils # (auto) 1.87 K/uL (1.4-6.5); Neutrophils % (auto) 44.3 %
[2019-09-18 07:27] LABS: Estimated Average Glucose 88 mg/dl; Hemoglobin A1C 4.7 % (4.5-5.6)
[2019-09-18] MEDS ORDERED: LORATADINE 10 MG TAB PO SCH (09:00)
[2019-09-18] MEDS ORDERED: OXcarbazepine 150 MG TABLET PO SCH (09:00)
[2019-09-18] MEDS ORDERED: SPIRONOLACTONE 100 MG TAB PO SCH (09:00)
[2019-09-18] MEDS ORDERED: PANTOprazole 40 MG TAB PO SCH (09:00)
[2019-09-18] MEDS: INSULIN ASPART 100 UNITS/ML 3 ML PEN SC SCH ×2 (09:46→12:33)
[2019-09-18] MEDS: ARTIFICIAL TEARS OP SCH ×2 (09:48→13:34)
[2019-09-18] MEDS: levETIRAcetam 500 MG TAB PO SCH (09:51)
[2019-09-18] MEDS: TOPIRAMATE 100 MG TAB PO SCH (09:51)
[2019-09-18] MEDS: RIFAXIMIN 550 MG TABLET PO SCH (09:52)
[2019-09-18] MEDS ORDERED: ZINC SULFATE 220 MG CAPSULE PO SCH (11:30)
[2019-09-18] MEDS ORDERED: CHOLECALCIFEROL 1,000 UNITS 25 MCG TAB PO SCH (11:30)
[2019-09-18] MEDS ORDERED: VITAMIN B COMPLEX TAB PO SCH (11:30)
[2019-09-18] MEDS ORDERED: MULTIVITAMIN TAB PO SCH (11:30)
[2019-09-18] MEDS ORDERED: NON-FORMULARY MEDICATION (Lecithin 1,200 MG) PO SCH (11:30)
[2019-09-18] MEDS ORDERED: MAGNESIUM CHLORIDE 64MG DELAYED REL TAB PO SCH (11:30)
[2019-09-18] MEDS ORDERED: NON-FORMULARY MEDICATION (Vitamin A 8,000 UNITS) PO SCH (11:30)
[2019-09-18] MEDS ORDERED: LACTULOSE SYRUP 30 GM/45 ML UDP PO STA (12:06)
--- NOTE | 2019-09-18 12:53 | Discharge Summary ---
Date of Service September 18, 2019 Admission HPI Per Admitting Provider Marcelle Munson is a 53 year old female well known to the service with liver cirrhosis and recurrent episodes of suspected hepatic encephalopathy. On this occasion her notes deterioration over the last 2 days. Usually in the morning when she first wakes up she is altered but then appears to improve in the afternoon and able to eat and drink normally. He reports she is taking all her regular medications although he decreased the spironolactone himself approximately 2 weeks ago to 50mg PO daily as he noticed with 100mg she is waking up 3 times a night to urinate. This was not discussed with her liver specialist. He does report her legs are more swollen currently. Not weighing herself at home. This morning she again was altered with decreased responsiveness, normal glucose level on her CGM and he was unable to even get her out of bed. He is unable to compare this occasion to prior episodes when she has come to the ER or admitted to tell me if it is similar or different. He reports she has been having myoclonic seizures but no worse than usual and these consist of her sudden legs collapsing but not her falling over when she is standing up with her walker. She does report recent antibiotics use with levaquin a few weeks ago for UTI although I cannot find charted evidence for this. Admission Exam Per Admitting Provider Constitutional: + ill appearing (chronically); + not well nourished and no acute distress Eyes: + anicteric sclerae; normal pupil size ENMT: external ear and nose normal, oropharynx normal Neck: trachea midline, no thyromegaly Respiratory: normal respiratory effort, lungs clear to auscultation Cardiovascular: Rate/Rhythm: regular rate and regular rhythm Heart Sounds: no murmur Vessels: no JVD Extremities: normal capillary refill and + pedal edema (1+ b/l equal to knees); no calf tenderness Gastrointestinal (Abdomen): Inspection/Auscultation: normal bowel sounds; abdomen not distended Percussion/Palpation: abdomen soft; abdomen nontender, no guarding and abdomen not rigid Musculoskeletal: Head/Neck/Chest: normocephalic and head atraumatic Skin: no rashes, warm and dry Neurologic: moves all extremities and awake (head bobbing present) Psychiatric: Orientation: alert and oriented x 3 Genitourinary: no CVA tenderness Lymphatic: no cervical or axillary lymphadenopathy Principal Diagnosis AMS 2/2 Transient Metabolic Encephalopathy Discharge Exam General: A&Ox3. NAD. Cooperative. HEENT: Cormocephalic. Small bruise underlying L eye, no crepitus or bony abdomality. Pulm: CTAB A&P. -wheezes, -rales, -rhonchi. Symmetrical chest rise. No increase work of breathing. No respiratory distress. Cardiac: RRR, -mrg. Radial pulses intact and symmetrical. Trace pedal edema. Abdominal: Nontender, nondistended, soft. BS present. CN II: Pupils are equal and react to light and accomidation. Visual acuity grossly intact. CN III, IV, : At primary gaze, there is no eye deviation. EoM intact without nystagmus. No visual field cuts. CN V: Facial sensation is intact to soft touch in all 3 divisions bilaterally. CN VII: No facial asymmetry CN VII: Hearing is grossly intact. CN IX, X: Phonation is normal without dysarthria. CN XI: Head turning intact CN XII: Tongue protrudes midline. Sensory: Light touch, pinprick intact in upper and low extremities without deficit or asymmetry. Strength: RUE: Elbow flexion/extension, finger flexion/extension, quality associate strength, i nterosseous 5/5 LUE: SElbow flexion/extension, finger flexion/extension, quality associate strength, interosseous 5/5 RLE: Hip flexion, ankle plantar flexion/dorsiflexion 5/5 LLE: Hip flexion, ankle plantar flexion/dorsiflexion 5/5 Restine 3-5 hz tremor appreciated in hands bilaterally R>L, baseline per pt Discharge Data Allergies Allergy/AdvReac Type Severity Reaction Status Date / Time metronidazole Allergy Severe SEIZURE Verified 09/17/19 16:46 tramadol Allergy Severe SEIZURES Verified 09/17/19 16:46 amoxicillin Allergy Intermediate HIVES; Has Verified 09/17/19 16:46 tolerated cephalosporins (Rocephin, Ceftin,Keflex baclofen Allergy Intermediate RASH Verified 09/17/19 16:46 butalbital Allergy Intermediate HIVES Verified 09/17/19 16:46 cat dander Allergy Intermediate Hives Verified 09/17/19 16:46 ceftriaxone [From Rocephin] Allergy Intermediate Hives Verified 09/17/19 16:46 clarithromycin Allergy Intermediate RASH Verified 09/17/19 16:46 clavulanic acid Allergy Intermediate Diarrhea Verified 09/17/19 16:46 dicyclomine Allergy Intermediate HIVES Verified 09/17/19 16:46 dog dander Allergy Intermediate Hives Verified 09/17/19 16:46 horse dander Allergy Intermediate Hives Verified 09/17/19 16:46 pollen extracts Allergy Intermediate Hives Verified 09/17/19 16:46 Tetracyclines Allergy Intermediate DOXYCYCLINE Verified 09/17/19 16:46 -HIVES adhesive Allergy Mild RASH, Verified 09/17/19 16:46 DUODERM=RED,ITCHY sulindac Allergy Mild ALLERGY Verified 09/17/19 16:46 LISTED "CLONDORAL"--HIVES azithromycin Allergy Unknown Verified 09/17/19 16:46 Cephalosporins AdvReac Severe TURNS Verified 09/17/19 16:46 STOOL VERY DARK furosemide AdvReac Severe HIVES Verified 09/17/19 16:46 levofloxacin [From Levaquin] AdvReac Severe Vomiting Verified 09/17/19 16:46 metoclopramide AdvReac Severe SEIZURES Verified 09/17/19 16:46 paroxetine [From Paxil] AdvReac Severe Vomiting Verified 09/17/19 16:46 cefdinir AdvReac Intermediate Diarrhea Verified 09/17/19 16:46 celecoxib AdvReac Mild HIVES Verified 09/17/19 16:46 Consultations 09/17/19 16:55 ED Decision to Admit Stat Ordered Studies 09/17/19 14:31 CT head/brain wo con Stat Hospital Course (1) Metabolic encephalopathy: Marcelle is a 53yo F with a PMHx of 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 Altered mental status 2/2 transient metabolic encephalopathy Patient presented with 2 days of worsening confusion in the morning which resolved in the afternoons and a single episode of confusion and sedation. Her prior to admission medications were continued on arrival to the emergency department, and she returned to her near baseline while in the emergency department. Her labs showed no leukocytosis, no signs of urinary tract infection, and a normal glucose. Her troponin was normal. TSH/T4 showed very mild hyper replacement managed as below. [place] [address], which is consistent with her prior baseline. Head CT and chest x-ray both showed no acute findings. She was admitted overnight for observation and continued on her prior to admission medications, rifaximin, and lactulose with improvement in her mental status. On morning of discharge she reported she felt normal at time of assessment, was alert and oriented x4, and felt comfortable returning home. She was discharged to continue rifaximin and lactulose with follow-up to her PCP. Liver cirrhosis Patient has a history of chronic liver cirrhosis & SINGLETARY. Ammonia levels were found to be at or near baseline, and she had mildly elevated AST which was also near her normal baseline. Her lactate was negative and she was normotensive during admission. Rifaximin and lactulose were continued, and she did not experience any acute decompensation of her liver cirrhosis during admission. She was discharged to follow-up with her PCP. Type 2 diabetes on insulin She was placed on sliding scale insulin overnight with adequate glycemic control and no lows or highs. She was discharged to resume her prior to admission insulin degludec and sliding scale regimen. History of seizure with pseudoseizure Patient has a history of seizure and pseudoseizure for which she is seen neurology and had EEGs in the past. She was continued on her anticonvulsants including Topamax, oxycarbazepine, and Keppra. She did not experience any seizure-like activity during her admission. On initial assessment in the ED and repeat assessment the following morning she did not show any signs of post ictal weakness and had a normal neurologic exam. GERD Her prior to admission PPI was converted to Protonix during admission. She did not experience any symptoms of reflux or gastrointestinal bleeding during admission. Blanca's thyroiditis On admission her TSH was slightly low with a low normal free T4. Her Synthroid dose was decreased from 50 mcg daily to 25 mcg daily with follow-up to her PCP for repeat thyroid function tests in approximately 6 weeks. Asthma Patient has a history of persistent asthma. She did not experience any wheezing or worsening of respiratory symptoms including any shortness of breath during admission. She was discharged to resume her prior to admission Breo. DVT prophylaxis SCDs were deferred on admission for fall/tangle risk. Patient was doing well the next day and discharged prior to conversion to pharmacal prophylaxis. No signs of DVT/PE during admission. (2) DVT prophylaxis: (3) Diabetes: (4) Encephalopathy due to ammonia: (5) Weakness: (6) Altered mental state: (7) Altered consciousness: (8) Fall: (9) Severe persistent asthma: (10) Liver cirrhosis secondary to SINGLETARY: (11) Chronic liver disease and cirrhosis: (12) Chronic reflux esophagitis: (13) Controlled type 2 diabetes mellitus, with long-term current use of insulin: (14) Blanca's thyroiditis: (15) Tremor: (16) GERD (gastroesophageal reflux disease): (17) Hyperammonemia: (18) Seizure disorder: Total Time Total Time Spent Total Time Spent (In Minutes): See Attending Documentation Discharge Plan Discharge Items Patient Disposition: Home - Self-Care Reason For Visit: ALTERED MENTAL STATUS Discharge Diagnosis: Metabolic Encephalopathy Activity: Resume your previous activity Non-emergency contact: Primary Care Provider Call non-emergency contact if: you have any medication questions, your symptoms worsen, your pain is not controlled, your pain is worsening, your pain is unusual for you, your pain is concerning for you and you have a fever Follow-up/Referrals: Balaji Zaragoza, [Primary Care Provider] - (We will call you at the beginning of the week with an appointment with your primary care provider.) Diet: Carb Consistent or DM2 Addtl Attending Provider Instructions: You were seen in the hospital for an episode of increased confusion. Your confusion was improving while you are in the emergency department.Your blood work did not show any signs of an infection. You were admitted for observation overnight and continued to improve. You were noted to have labs suggesting that your thyroid replacement dose was very slightly too high. Your dose of Synthroid has been reduced from 50 mcg daily to 25 mcg daily. You will need to have a recheck of your thyroid function in 4 to 6 weeks. Please discuss this further with your primary care physician at your follow-up appointment noted below. It is critically important to continue taking both rifaximin and lactulose As previously prescribed which will help prevent confusion due to your existing liver disease.If you are not having at least 3-4 bowel movements per day while taking lactulose please contact your primary care provider A followup appointment is being scheduled for you with Dr. Zaragoza, your primary care doctor. You should be seen seen within 1 week. You should receive a call to confirm this appointment. If you do not receive a call to confirm this appointment, or need to change this appointment, please call the provider's office at [phone]. If you develop any new or worsening symptoms including worsening confusion, fever, chills, sweats, chest pain, chest pressure, difficulty breathing, unco ntrolled nausea/vomiting, rash, wheezing, passing out or nearly passing out, bleeding, black/bloody bowel movements, or other new or concerning symptoms please call your primary care physician at [phone], or call 911 for re- evaluation in the emergency department if you are very concerned. Pending Studies at Discharge: No Stand-Alone Forms: My [facility] Performance Indicator, Smoking Cessation Medications and DC Order Prescriptions: Continued pen needle, diabetic [BD Ultra-Fine Mini Pen Needle] 31 gauge x 3/16" needle See Rx Instructions .ROUTE .COMPLEX Qty: 500 RF: 3 rizatriptan 10 mg tablet,disintegrating 10 mg PO .COMPLEX PRN (Reason: migraine headache) 30 Days Qty: 9 RF: 5 spironolactone 100 mg tablet 100 mg PO QAM 30 Days Qty: 30 RF: 5 ipratropium-albuterol 0.5 mg-3 mg(2.5 mg base)/3 mL solution for nebulization 3 ml INH QID PRN (Reason: wheezing) Qty: 90 RF: 0 omeprazole 40 mg capsule,delayed release(DR/EC) 40 mg PO QAM Qty: 90 RF: 1 lactulose 20 gram/30 mL solution 30 ml PO QAM Qty: 1500 RF: 1 Xifaxan 550 mg tablet 550 mg PO BID Qty: 60 RF: 5 Novolog Flexpen U-100 Insulin 100 unit/mL (3 mL) insulin pen See Rx Instructions SQ .COMPLEX RF: 0 melatonin 10 mg capsule 15 mg PO HS RF: 0 Refresh Optive Advanced 0.5-1-0.5 % drops 2 drops OP TID Qty: 10 RF: 0 sodium chloride [Saline Nasal] 0.65 % aerosol,spray 1 sprays INTNAS BID PRN (Reason: dry nasal passages) Qty: 15 RF: 0 levetiracetam 750 mg tablet 1,500 mg PO BID 30 Days Qty: 120 RF: 5 oxcarbazepine 300 mg tablet 300 mg PO .COMPLEX Qty: 90 RF: 5 topiramate 100 mg tablet 100 mg PO BID Qty: 60 RF: 5 epinephrine [EpiPen 2-Garret] 0.3 mg/0.3 mL auto-injector 0.3 mg IM Q10M PRN (Reason: Anaphylaxis) RF: 0 lecithin 1,200 mg capsule 1,200 mg PO QDL RF: 0 loratadine 10 mg tablet 10 mg PO QAM RF: 0 multivitamin [Multiple Vitamins] Tablet 1 tab PO QDL RF: 0 zinc 50 mg Tablet 50 mg PO QDL RF: 0 Tresiba FlexTouch U-100 100 unit/mL (3 mL) insulin pen 10 units subcut QAM RF: 0 Slow-Mag 71.5 mg Tablet,Delayed Release (Dr/Ec) 143 mg PO QDL RF: 0 vitamin A 8,000 unit Capsule 8,000 unit PO QDL RF: 0 vitamin B complex Tablet 1 tab PO QDL RF: 0 cholecalciferol (vitamin D3) [Vitamin D3] 1,000 unit Capsule 1,000 unit PO QDL RF: 0 Probiotic 3 billion cell Capsule 0 mmu cells PO QDL RF: 0 promethazine 25 mg tablet 25 mg PO Q6H PRN (Reason: sedation) Qty: 12 RF: 0 cranberry 400 mg Capsule 400 mg PO BID RF: 0 terconazole 0.4 % cream 1 appl PV HS RF: 0 Changed levothyroxine 50 mcg tablet 25 mcg PO DAILY Qty: 30 RF: 2 Discharge Orders: Discharge Order (Routine); Ordered 09/18/19 Ordered By: Davis Faulkner Admission Data Admit Date/Time: 09/17/19 17:27 Attending Provider: Damon Madrigal Admit Provider: Sammy Pérez Primary Care Provider: Balaji Zaragoza Other Providers: Sammy Pérez Other Interventions: Discharge Summary Assessment (RN) Last Done: 09/18/19 13:28 DC Date/Time DO NOT enter until pt leaves facility: 09/18/19 16:57 Supervising Physician Co-Signing Physician Notes Attending attestation Pt seen and examined in concert with Dr. Faulkner. In agreement with the documented findings as noted in the resident documentation with any exceptions or additions as noted here. Resting in bed without acute complaint at present, purporting to be at her baseline, which appears consistent with previous encounters. On examination, S1/S2 nl RRR no MCG. CTAB. Abd NT/ND BS+ve. CNII-XII grossly intact as tested. Altered mental status in the setting of liver cirrhosis and seizure disorder - return to baseline. Continue lactulose and rixaximin, as well as home seizure disorder medication. Else see resident documentation as noted. Resident Activity Tracking Resident Involvement: Resident Care Provided Care Provided: Adult [facility]
[2019-09-18] MEDS ORDERED: LACTULOSE SYRUP 10 GM/15 ML BTL 960 ML PO SCH (16:00)
[2019-09-19] MEDS ORDERED: LEVOTHYROXINE SODIUM 25 MCG TABLET PO SCH (06:30)
== END 2019-09-18 16:57 | disposition home or self-care (01) ==
LOC: 2W 13:38 → ED 13:38 → SUATTDRO 17:27 → 2W 19:30

== ENCOUNTER 2019-10-19 15:41 | Inpatient (IN) ==
[2019-10-19] MEDS ORDERED: SODIUM CHLORIDE 0.9% 500 ML IV SCH (16:00)
--- NOTE | 2019-10-19 16:01 | Emergency Department Note ---
Impression & Plan Altered mental status, Hyperammonemia, Acute confusion, Acute dehydration ED Provider Note NAME: CHRISTO SAN AGE: 53 SEX: F : 1965 ARRIVES VIA: Walk-In INFORMANT: [Patient][] ED PROVIDER(S): [Aiden Nelson MD] CHIEF COMPLAINT: Unresponsiveness HISTORY OF PRESENT ILLNESS: The patient is a 53-year-old female with a complex medical history. The patient has been more unresponsive today as per her . She has been sleeping all day and pretty much nonverbal. A very short time ago she was able to eat a bit but this did not seem to improve her mental status. There has been no fever or cough or vomiting. She is moving her bowels and taking her lactulose. Patient has been on antibiotics for a UTI for about 2 weeks, she was just switched to a new antibiotic today as per her . There has been no trauma or fall. She has not been running a fever. No chest pain complaints or shortness of breath. No change in medications recently exce pt for the antibiotic switch. The patient has a history of a high ammonia level, sometimes when she has a high level she does present like this. At this point, no further history obtainable as the patient is nonverbal. REVIEW OF SYSTEMS: Unobtainable given the mental state. PMHx/PSHx: See Below SOCIAL HISTORY: See Below. PHYSICAL EXAM: GENERAL: Patient is in no acute distress. HEENT: No acute trauma, normocephalic atraumatic, mucous membranes dry, no nasal congestion, no scleral icterus. NECK: No stridor, no adenopathy, no meningismus, trachea is midline. LUNGS: Clear to auscultation bilaterally, no wheeze, no rhonchi, breath sounds equal. HEART: 2/6 systolic murmur, regular rate and rhythm. ABDOMEN: Soft, nontender, bowel sounds positive, no hernias, no peritonitis. EXTREMITIES: No cyanosis, mild bilateral pedal edema, full range of motion of all the joints without pain or difficulty, no signs for acute trauma. NEUROLOGIC: Sleepy, nonverbal, quite somnolent. Did move all extremities during my evaluation. She was able to help herself into bed by standing on her own from her wheelchair with some assistance. SKIN: No rash, no jaundice, no diaphoresis. DIFFERENTIAL DIAGNOSIS: Infection, dehydration, metabolic abnormality, elevated ammonia level, CO2 retention, sepsis, hypo/hyperglycemia, electrolyte disturbance, anemia, hypoxia, cardiac sources, intracerebral event, toxicologic, neurologic, as well as other pathologies. EMERGENCY DEPARTMENT COURSE/PROCEDURES: ECG: Indication was change in mental status. The ECG shows a normal sinus rhythm with a rate of 74. The QTc is 479. There is no ST elevation, no PVCs. Continuous Cardiac Monitoring: An order was placed for continuous cardiac monitoring. The monitor shows a rate of 63 with normal sinus rhythm. MEDICAL DECISION MAKING: There is a pancytopenia, this is consistent with her previous testing. ABG did not show acidosis or CO2 retention. Renal panel testing did not show any evidence for renal failure.. Magnesium was slightly low at 1.7. There were some subtle liver enzyme elevations which have been documented in the past. Patient appeared to be in a euthyroid state. EKG showed a sinus rhythm, no acute ischemia. Cardiac enzyme testing x1 is not consistent with acute cardiac injury. Chest x-ray did not show pneumonia or CHF. Brain CT showed no acute bleed or mass-effect. Urinalysis did not show any obvious infection. Ammonia level was quite elevated at 148. Patient presented quite somnolent. She seemed dehydrated. She was given IV saline. She received IV Phenergan her complaints of nausea--nausea became a complaint during her ED stay. She was given IV magnesium for the lower magnesium value. She was eventually given a dose of oral lactulose when she became more awake. The patient was quite somnolent. She appeared dehydrated. Her ammonia level was quite high. Certainly, the high ammonia level could explain her mental status change. Given her presentation, the dehydration, the elevated ammonia level, I do think hospitalization is warranted. Hopefully, she will improve in the next 24 hours as her ammonia clears and as she is hydrated. I spoke to the patient, I talked to the product introduction manager. The on-call hospitalist was consulted. Past Med/Surg History Medical History Allergic rhinitis Asthma STABLE Blepharitis of both eyes (Inactive) Depression Dysphagia GERD (gastroesophageal reflux disease) CONTROLLED Hemorrhoids (Inactive) Hepatic encephalopathy HX; ON LACTULOSE/XIFAXAN Hx of migraines Hyperammonemia (Acute) Hypocalcemia (Inactive) Hypothyroidism Myoclonic seizure "FREQUENT MYOCLONIC SEIZURES" FOLLOWS WITH DR. YANG Never a smoker (Inactive) Nonalcoholic fatty liver disease (Inactive) Pancytopenia (Acute) CHRONIC Parkinsonism (Acute) Pneumonia (Inactive) Polydipsia (Resolved) Seizure disorder (05/26/11) + PSEUDOSEIZURES Spleen enlargement (Acute) Surgical History History of ankle surgery B/L History of appendectomy History of cholecystectomy History of colonoscopy History of esophagogastroduodenoscopy (EGD) History of kyphoplasty History of surgery on arm LEFT History of tooth extraction Hx of carpal tunnel repair B/L Hx of cataract extraction B/L S/P laminectomy lumbar spine S/P nasal surgery nasal bone fracture repair S/P TIFFANIE-BSO (1997) Family History Other Adopted No pertinent family history Social History Smoking Status: Never smoker Tobacco Type: Cigarettes Second Hand Exposure: No; Hx Alcohol Use: No Hx Substance Use: No Preferred Language: [place] Communication Ability: Effective Visual Impairment: No Limitations Immunology Specialist Required: No Beliefs That Will Affect Care: None marital status: Current Living Situation: Spouse Current Living Situation Comment: Lives with in apartment current occupational status: unemployed and disabled How many Children do You have: 0 Other Information That Helps Us Care for You: No Feels Safe at Home: Yes Safety Concerns: Feels Safe At This Time Seatbelt Use: always Allergies Allergies Allergy/AdvReac Type Severity Reaction Status Date / Time metronidazole Allergy Severe SEIZURE Verified 10/19/19 16:30 tramadol Allergy Severe SEIZURES Verified 10/19/19 16:30 amoxicillin Allergy Intermediate HIVES; Has Verified 10/19/19 16:30 tolerated cephalosporins (Rocephin, Ceftin,Keflex baclofen Allergy Intermediate RASH Verified 10/19/19 16:30 butalbital Allergy Intermediate HIVES Verified 10/19/19 16:30 cat dander Allergy Intermediate Hives Verified 10/19/19 16:30 ceftriaxone [From Rocephin] Allergy Intermediate Hives Verified 10/19/19 16:30 clarithromycin Allergy Intermediate RASH Verified 10/19/19 16:30 clavulanic acid Allergy Intermediate Diarrhea Verified 10/19/19 16:30 dicyclomine Allergy Intermediate HIVES Verified 10/19/19 16:30 dog dander Allergy Intermediate Hives Verified 10/19/19 16:30 horse dander Allergy Intermediate Hives Verified 10/19/19 16:30 pollen extracts Allergy Intermediate Hives Verified 10/19/19 16:30 Tetracyclines Allergy Intermediate DOXYCYCLINE Verified 10/19/19 16:30 -HIVES adhesive Allergy Mild RASH, Verified 10/19/19 16:30 DUODERM=RED,ITCHY sulindac Allergy Mild ALLERGY Verified 10/19/19 16:30 LISTED "CLONDORAL"--HIVES azithromycin Allergy Unknown Verified 10/19/19 16:30 Cephalosporins AdvReac Severe TURNS Verified 10/19/19 16:30 STOOL VERY DARK furosemide AdvReac Severe HIVES Verified 10/19/19 16:30 levofloxacin [From Levaquin] AdvReac Severe Vomiting Verified 10/19/19 16:30 metoclopramide AdvReac Severe SEIZURES Verified 10/19/19 16:30 paroxetine [From Paxil] AdvReac Severe Vomiting Verified 10/19/19 16:30 cefdinir AdvReac Intermediate Diarrhea Verified 10/19/19 16:30 celecoxib AdvReac Mild HIVES Verified 10/19/19 16:30 Home Meds Home Medications Medication Instructions Recorded Confirmed multivitamin [Multiple Vitamins] 1 tab PO QDL 12/26/17 10/19/19 Probiotic 0 mmu cells PO QDL 09/20/18 10/19/19 cholecalciferol (vitamin D3) 1,000 unit PO QDL 09/20/18 10/19/19 [Vitamin D3] vitamin A 8,000 unit PO QDL 09/20/18 10/19/19 vitamin B complex 1 tab PO QDL 09/20/18 10/19/19 cranberry 400 mg PO BID 02/04/19 10/19/19 zinc 50 mg PO QDL 02/09/19 10/19/19 melatonin 10 mg capsule 15 mg PO HS cap 03/30/19 10/19/19 epinephrine 0.3 mg/0.3 mL 0.3 mg IM Q10M PRN 04/02/19 10/19/19 injection, auto-injector lecithin 1,200 mg capsule 1,200 mg PO QDL 04/29/19 10/19/19 loratadine 10 mg tablet 10 mg PO QAM 04/29/19 10/19/19 Slow-Mag 143 mg PO QDL 06/10/19 10/19/19 terconazole 1 appl PV HS 08/13/19 10/19/19 insulin degludec [Tresiba 12 units SUBCUT QAM 10/10/19 10/19/19 FlexTouch U-100] lactulose 40 - 45 ml PO QAM 10/10/19 10/19/19 melatonin 5 mg PO HS PRN 10/10/19 10/19/19 spironolactone 50 mg PO QAM 10/10/19 10/19/19 ciprofloxacin HCl [Cipro] 500 mg PO Q12H 10/19/19 10/19/19 furosemide [Lasix] 20 mg PO DIRECTED 10/19/19 10/19/19 levothyroxine [Euthyrox] 50 mcg PO QAM 10/19/19 10/19/19 Previous Rx's Medication Instructions Recorded promethazine 25 mg PO Q6H PRN #12 tab 10/27/18 xktburqzbbwbckekdajmdc-jcgqbxfr-cniwpzqm 2 drops OP TID #10 ml 07/26/19 80 0.5 %-1 %-0.5 % eye drops sodium chloride 0.65 % nasal spray 1 sprays INTNAS BID PRN #15 ml 07/26/19 aerosol ipratropium 0.5 mg-albuterol 3 mg 3 ml INH QID PRN #90 ml 07/30/19 (2.5 mg base)/3 mL nebulization soln omeprazole 40 mg capsule,delayed 40 mg PO QAM #90 cap 08/02/19 release rifaximin 550 mg tablet 550 mg PO BID #60 tab 09/06/19 levetiracetam 750 mg tablet 1,500 mg PO BID 30 Days #120 tab 09/09/19 topiramate 100 mg tablet 100 mg PO BID #60 tab 09/09/19 insulin aspart U-100 100 unit/mL See Rx Instructions SQ .COMPLEX 09/24/19 (3 mL) subcutaneous pen #15 ml oxcarbazepine 300 mg tablet 300 mg PO .COMPLEX #90 tab 09/24/19 rizatriptan 10 mg disintegrating 10 mg PO .COMPLEX PRN 30 Days #9 09/24/19 tablet tab Results & Data (ED) Vital Signs Vital Signs - 24 hr 10/19/19 15:43 10/19/19 15:55 10/19/19 15:58 Temperature 36.8 C Temperature Source Oral Pulse Rate 77 76 74 Pulse Rate from SpO2 Sensor 76 Respiratory Rate 15 23 20 Respiratory Effort / Characteristics Non-Labored Respiratory Depth Normal Blood Pressure 118/75 Blood Pressure Mean 89 Blood Pressure Position Sitting Pulse Oximetry 98 99 100 Oxygen Delivery Method Room Air Room Air Sepsis Recent Fever Within 48 Hours No Sepsis New/Unexplained Change in Mental Status No Sepsis Action Taken by Nursing No Action Required 10/19/19 16:00 10/19/19 16:30 10/19/19 16:31 Temperature Temperature Source Pulse Rate 74 74 75 Pulse Rate from SpO2 Sensor 74 74 75 Respiratory Rate 20 18 20 Respiratory Effort / Characteristics Respiratory Depth Blood Pressure 109/59 L Blood Pressure Mean 74 Blood Pressure Position Pulse Oximetry 100 100 99 Oxygen Delivery Method Sepsis Recent Fever Within 48 Hours Sepsis New/Unexplained Change in Mental Status Sepsis Action Taken by Nursing 10/19/19 16:42 10/19/19 17:00 10/19/19 17:01 Temperature Temperature Source Pulse Rate 75 68 67 Pulse Rate from SpO2 Sensor 69 67 Respiratory Rate 12 20 18 Respiratory Effort / Characteristics Respiratory Depth Blood Pressure 123/59 L Blood Pressure Mean 74 Blood Pressure Position Pulse Oximetry 100 100 Oxygen Delivery Method Sepsis Recent Fever Within 48 Hours Sepsis New/Unexplained Change in Mental Status Sepsis Action Taken by Nursing 10/19/19 17:30 10/19/19 17:31 Temperature Temperature Source Pulse Rate 71 70 Pulse Rate from SpO2 Sensor 71 69 Respiratory Rate 19 23 Respiratory Effort / Characteristics Respiratory Depth Blood Pressure 126/109 H Blood Pressure Mean 112 Blood Pressure Position Pulse Oximetry 100 100 Oxygen Delivery Method Sepsis Recent Fever Within 48 Hours Sepsis New/Unexplained Change in Mental Status Sepsis Action Taken by [facility] Medications Current Medication List: was personally reviewed by me Laboratory Data Attestation: I reviewed the patient's lab results. Result diagrams: 10/19/19 16:18 10/19/19 16:26 Lab Results 10/19/19 10/19/19 10/19/19 Range/Units 16:15 16:18 16:26 WBC 2.66 L (4.8-10.8) K/uL RBC 2.57 L (4.2-5.4) M/uL Hgb 9.9 L (12.0-16.0) g/dL Hct 26.3 L (37-47) % MCV 102.3 H (80-100) fL MCH 38.5 H (25-34) pg MCHC 37.6 H (32-36) g/dL RDW Std Deviation 51.3 H (36.4-46.3) fL RDW Coeff of Irina 13.8 (11.5-14.5) % Plt Count 84 L (130-400) K/uL MPV 9.7 (7.4-10.4) fL Immature Gran % (Auto) 0.0 % Neut % (Auto) 45.4 % Lymph % (Auto) 36.5 % [place] % (Auto) 12.0 % Eos % (Auto) 5.3 % Baso % (Auto) 0.8 % Neut # (Auto) 1.21 L (1.4-6.5) K/uL Lymph # (Auto) 0.97 L (1.2-3.4) K/uL [place] # (Auto) 0.32 (0.11-0.59) K/uL Eos # (Auto) 0.14 (0-0.5) K/uL Baso # (Auto) 0.02 (0-0.2) K/uL Immature Gran # (Auto) 0.00 (0.00-0.02) K/uL Platelet Estimate Decreased L (Normal) ABG pH 7.44 (7.35-7.45) ABG pCO2 28 L (35-46) mmHg ABG pO2 106 H (80-95) mmHg ABG HCO3 18 L (19-24) mmol/L ABG O2 Saturation 98.2 H (90-95) % ABG Base Excess -4.6 (-9-1.8) mEq/L Edy Test Pos (Pos) Barometric Pressure 732.8 mm/Hg Oxygen Given ROOM AIR Sodium 138 (136-145) mmol/L Potassium 3.5 (3.5-5.1) mmol/L Chloride 111 H (98-107) mmol/L Carbon Dioxide 19 L (21-32) mmol/L Anion Gap 8.0 (3-11) BUN 9 (7-18) mg/dl Creatinine 0.50 L (0.6-1.2) mg/dl Est Cr Clr Drug Dosing Not Reportable Est GFR ( Amer) 128.1 Est GFR (Non-Af Amer) 110.5 BUN/Creatinine Ratio 17.0 (10-20) Glucose 126 H (70-99) mg/dl Lactate (0.4-2.0) mmol/L Calcium 7.8 L (8.5-10.1) mg/dl Magnesium 1.7 L (1.8-2.4) mg/dl Total Bilirubin 1.7 H (0.2-1) mg/dl AST 44 H (15-37) U/L ALT 52 (12-78) U/L Alkaline Phosphatase 122 H (45-117) U/L Ammonia (11-32) umol/L Troponin I < 0.015 (0-0.045) ng/ml Total Protein 5.5 L (6.4-8.2) gm/dl Albumin 2.8 L (3.4-5.0) gm/dl Globulin 2.7 (2.5-4.0) gm/dl Albumin/Globulin Ratio 1.0 (0.9-2) TSH 1.560 (0.300-4.500) uIu/ml Urine Color Urine Appearance (Clear) Urine pH (4.5-7.5) Ur Specific [place] (1.000-1.030) Urine Protein (Negative) Urine Glucose (UA) (Negative) Urine Ketones (Negative) Urine Blood (Negative) Urine Nitrite (Negative) Urine Bilirubin (Negative) Urine Urobilinogen (Negative) Ur Leukocyte Esterase (Negative) 10/19/19 10/19/19 10/19/19 Range/Units 16:27 16:27 16:46 WBC (4.8-10.8) K/uL RBC (4.2-5.4) M/uL Hgb (12.0-16.0) g/dL Hct (37-47) % MCV (80-100) fL MCH (25-34) pg MCHC (32-36) g/dL RDW Std Deviation (36.4-46.3) fL RDW Coeff of Irina (11.5-14.5) % Plt Count (130-400) K/uL MPV (7.4-10.4) fL Immature Gran % (Auto) % Neut % (Auto) % Lymph % (Auto) % [place] % (Auto) % Eos % (Auto) % Baso % (Auto) % Neut # (Auto) (1.4-6.5) K/uL Lymph # (Auto) (1.2-3.4) K/uL [place] # (Auto) (0.11-0.59) K/uL Eos # (Auto) (0-0.5) K/uL Baso # (Auto) (0-0.2) K/uL Immature Gran # (Auto) (0.00-0.02) K/uL Platelet Estimate (Normal) ABG pH (7.35-7.45) ABG pCO2 (35-46) mmHg ABG pO2 (80-95) mmHg ABG HCO3 (19-24) mmol/L ABG O2 Saturation (90-95) % ABG Base Excess (-9-1.8) mEq/L Edy Test (Pos) Barometric Pressure mm/Hg Oxygen Given Sodium (136-145) mmol/L Potassium (3.5-5.1) mmol/L Chloride (98-107) mmol/L Carbon Dioxide (21-32) mmol/L Anion Gap (3-11) BUN (7-18) mg/dl Creatinine (0.6-1.2) mg/dl Est Cr Clr Drug Dosing Est GFR ( Amer) Est GFR (Non-Af Amer) BUN/Creatinine Ratio (10-20) Glucose (70-99) mg/dl Lactate 1.1 (0.4-2.0) mmol/L Calcium (8.5-10.1) mg/dl Magnesium (1.8-2.4) mg/dl Total Bilirubin (0.2-1) mg/dl AST (15-37) U/L ALT (12-78) U/L Alkaline Phosphatase (45-117) U/L Ammonia 148.1 H (11-32) umol/L Troponin I (0-0.045) ng/ml Total Protein (6.4-8.2) gm/dl Albumin (3.4-5.0) gm/dl Globulin (2.5-4.0) gm/dl Albumin/Globulin Ratio (0.9-2) TSH (0.300-4.500) uIu/ml Urine Color Yellow Urine Appearance Clear (Clear) Urine pH 7.5 (4.5-7.5) Ur Specific [place] 1.015 (1.000-1.030) Urine Protein Negative (Negative) Urine Glucose (UA) Negative (Negative) Urine Ketones Negative (Negative) Urine Blood Negative (Negative) Urine Nitrite Negative (Negative) Urine Bilirubin Negative (Negative) Urine Urobilinogen Negative (Negative) Ur Leukocyte Esterase Negative (Negative) Administered Medications Potassium Chloride/Sodium Chloride (Normal Saline W/20 Meq Kcl) 20 meq in 1,000 mls @ 80 mls/hr IV .[id number] SHEBA Stop: 11/18/19 10:29 Last Admin: 10/19/19 20:54 Dose: 80 mls/hr Documented by: [id number] Levetiracetam (Keppra) 1,500 mg PO BID SHEBA Stop: 11/18/19 20:59 Last Admin: 10/19/19 20:54 Dose: 1,500 mg Documented by: [id number] Oxcarbazepine (Trileptal) 600 mg PO HS SHEBA Stop: 11/18/19 20:59 Last Admin: 10/19/19 20:53 Dose: 600 mg Documented by: [id number] Rifaximin (Xifaxan) 550 mg PO BID SHEBA Stop: 11/18/19 20:59 Last Admin: 10/19/19 20:53 Dose: 550 mg Documented by: [id number] Topiramate (Topamax) 100 mg PO BID SHEBA Stop: 11/18/19 20:59 Last Admin: 10/19/19 20:53 Dose: 100 mg Documented by: [id number] Discontinued Medications Sodium Chloride (Nss) 500 mls @ 999 mls/hr IV .Q31M SHEBA Stop: 10/19/19 16:30 Last Infusion: 10/19/19 17:19 Dose: 0 mls/hr Documented by: [id number] Admin: 10/19/19 16:33 Dose: 999 mls/hr Documented by: [id number] Promethazine HCl 12.5 mg/ (Sodium Chloride) 50.5 mls @ 202 mls/hr IV NOW STA Stop: 10/19/19 17:10 Last Admin: 10/19/19 17:03 Dose: Not Given Documented by: [id number] Magnesium Sulfate/Dextrose (Magnesium Sulfate / D5w) 1 gm in 100 mls @ 100 mls/hr IV NOW STA Stop: 10/19/19 18:05 Last Infusion: 10/19/19 18:20 Dose: 0 mls/hr Documented by: [id number] Admin: 10/19/19 17:19 Dose: 100 mls/hr Documented by: [id number] Lactulose (Chronulac) 30 gm PO NOW STA Stop: 10/19/19 17:15 Last Admin: 10/19/19 19:38 Dose: 30 gm Documented by: [id number] Miscellaneous (Patient's Height And/Or Weight Needed) 1 ea N/A Q2H SHEBA Stop: 10/20/19 03:01 Last Admin: 10/19/19 21:54 Dose: 1 ea Documented by: [id number] Promethazine HCl (Phenergan) Confirm Administered Dose 12.5 mg IV .STK-MED ONE Stop: 10/19/19 17:01 Last Admin: 10/19/19 17:03 Dose: 12.5 mg Documented by: [id number] Imaging Data Radiologist's Impression: CT SCAN OF THE BRAIN WITHOUT IV CONTRAST CLINICAL HISTORY: Change in mental status. COMPARISON STUDY: Multiple prior CT scans of the brain, most recently dated 05/23/09/21/2019. TECHNIQUE: Unenhanced axial CT scan of the brain is performed from the vertex to the skull base. A dose lowering technique was utilized adhering to the principles of ALARA. CT DOSE: 537.48 mGy.cm FINDINGS: Brain parenchyma: There is asymmetric atrophy of the cerebellum. There is no hemorrhage, mass effect, or evidence of acute territorial ischemia by CT criteria. Braxton-white matter differentiation is preserved. No extra-axial fluid collection is seen. Ventricles, sulci, cisterns: Normal in configuration. Intracranial vasculature: There is atherosclerotic calcification of the cavernous carotid arteries. Calvarium: Unremarkable. Sinuses and mastoids: The visualized paranasal sinuses are clear. The mastoid air cells are well pneumatized. Orbits: The bony orbits are grossly intact. There are bilateral ocular lens implants. IMPRESSION: There is no hemorrhage, mass effect, or evidence of acute territorial ischemia by CT criteria. XR chest 1V portable HISTORY: weakness COMPARISON: Chest 10/10/2019. FINDINGS: There are low lung volumes. The heart remains mildly enlarged. Right jugular Port-A-Cath remains at the distal SVC. No pleural effusions. No pneumothorax. The lungs are clear. Postoperative changes again noted within the proximal left humerus. IMPRESSION: No significant change compared to the prior study. No acute process. Stable mild cardiomegaly. Blood Pressure Blood Pressure Findings: Normal blood pressure Blood Pressure Disposition: further management by hospitalist Discharge Plan Visit Data *Final* Discharge Date/Time: 10/19/19 19:45 Chief Complaint: Unresponsive Stated Complaint: UNRESPONSIVE FOR MOST OF TODAY ED Provider: Aiden Nelson Discharge Problem: Altered mental status, Hyperammonemia, Acute confusion, Acute dehydration Patient Disposition: Admitted As Inpatient Condition: Fair Discharge Instructions Interventions: ED Discharge Assessment Last Done: 10/19/19 19:45 Discharge Problem: Altered mental status Qualifiers: Altered mental status type: somnolence Qualified Code(s): R40.0 - Somnolence
[2019-10-19 16:35] LABS: Base Excess ABG -4.6 mEq/L (-9-1.8); HCO3 ABG 18 mmol/L (19-24); Oxygen Saturation ABG 98.2 % (90-95); PCO2 ABG 28 mmHg (35-46); PO2 ABG 106 mmHg (80-95); pH ABG 7.44 (7.35-7.45)
[2019-10-19 16:38] LABS: Allen Test Pos (Pos)
[2019-10-19 16:38] LABS: Hematocrit (blood only) 26.3 % (37-47); Hemoglobin 9.9 g/dL (12.0-16.0); Mean Corpuscular Hemoglobin 38.5 pg (25-34); Mean Corpuscular Hgb Conc 37.6 g/dL (32-36); Mean Corpuscular Volume 102.3 fL (80-100); RDW Coefficient of Variation 13.8 % (11.5-14.5); RDW Standard Deviation 51.3 fL (36.4-46.3); Red Blood Count 2.57 M/uL (4.2-5.4); White Blood Count 2.66 K/uL (4.8-10.8)
--- NOTE | 2019-10-19 16:39 | XRay Report ---
XR chest 1V portable HISTORY: weakness COMPARISON: Chest 10/10/2019. FINDINGS: There are low lung volumes. The heart remains mildly enlarged. Right jugular Port-A-Cath re hoa at the distal SVC. No pleural effusions. No pneumothorax. The lungs are clear. Postoperative ch anges again noted within the proximal left humerus. IMPRESSION: No significant change compared to the prior study. No acute process. Stable mild cardiomegaly. ACT 112: Negative or not required by law. Electronically signed by: Talon Cruz M.D. 10/19/2019 4:37 PM
--- NOTE | 2019-10-19 16:44 | CT Scan Report ---
CT SCAN OF THE BRAIN WITHOUT IV CONTRAST CLINICAL HISTORY: Change in mental status. COMPARISON STUDY: Multiple prior CT scans of the brain, most recently dated 05/23/09/21/2019. TECHNIQUE: Unenhanced axial CT scan of the brain is performed from the vertex to the skull base. A d ose lowering technique was utilized adhering to the principles of ALARA. CT DOSE: 537.48 mGy.cm FINDINGS: Brain parenchyma: There is asymmetric atrophy of the cerebellum. There is no hemorrhage, mass effect, or evidence of acute territorial ischemia by CT criteria. Braxton-white matter differentiation is prese rved. No extra-axial fluid collection is seen. Ventricles, sulci, cisterns: Normal in configuration. Intracranial vasculature: There is atherosclerotic calcification of the cavernous carotid arteries. Calvarium: Unremarkable. Sinuses and mastoids: The visualized paranasal sinuses are clear. The mastoid air cells are well pneu matized. Orbits: The bony orbits are grossly intact. There are bilateral ocular lens implants. IMPRESSION: There is no hemorrhage, mass effect, or evidence of acute territorial ischemia by CT tricia ch. ACT 112: Negative or not required by law. Electronically signed by: Aiden Randolph M.D. 10/19/2019 4:43 PM
[2019-10-19] MEDS ORDERED: PROMETHAZINE HCL 12.5 MG in SODIUM CHLORIDE 0.9% 50 ML IV STA (16:56)
[2019-10-19] MEDS ORDERED: PROMETHAZINE 12.5 MG/50.5 ML NSS IV ONE (17:00)
[2019-10-19 17:01] LABS: Alanine Aminotransferase 52 U/L (12-78); Albumin Level 2.8 gm/dl (3.4-5.0); Aspartate Aminotransferase 44 U/L (15-37); Blood Urea Nitrogen 9 mg/dl (7-18); Calcium 7.8 mg/dl (8.5-10.1); Carbon Dioxide 19 mmol/L (21-32); Chloride 111 mmol/L (98-107); Est GFR (African American) 128.1; Est GFR (Non-African American) 110.5; Glucose 126 mg/dl (70-99); Magnesium 1.7 mg/dl (1.8-2.4); Potassium 3.5 mmol/L (3.5-5.1); Sodium 138 mmol/L (136-145)
[2019-10-19 17:05] LABS: Basophils # (auto) 0.02 K/uL (0-0.2); Basophils % (auto) 0.8 %; Eosinophils # (auto) 0.14 K/uL (0-0.5); Eosinophils % (auto) 5.3 %; Lymphocytes # (auto) 0.97 K/uL (1.2-3.4); Lymphocytes % (auto) 36.5 %; Mean Platelet Volume 9.7 fL (7.4-10.4); Monocytes # (auto) 0.32 K/uL (0.11-0.59); Neutrophils # (auto) 1.21 K/uL (1.4-6.5); Neutrophils % (auto) 45.4 %; Platelet Count 84 K/uL (130-400); Platelet Estimate Decreased (Normal)
[2019-10-19] MEDS ORDERED: MAGNESIUM SULFATE / D5W 1 GM/100 ML BAG IV STA (17:06)
[2019-10-19 17:08] LABS: Appearance Urine Clear (Clear); Bilirubin Urine Negative (Negative); Blood Urine Negative (Negative); Color Urine Yellow; Glucose Urine UA Negative (Negative); Ketones Urine Negative (Negative); Leukocyte Esterase Urine Negative (Negative); Nitrite Urine Negative (Negative); Protein Urine Negative (Negative); Specific Gravity Urine 1.015 (1.000-1.030); Urobilinogen Urine Negative (Negative); pH Urine 7.5 (4.5-7.5)
[2019-10-19 17:12] LABS: Alkaline Phosphatase 122 U/L (45-117); Bilirubin,Total 1.7 mg/dl (0.2-1); Globulin 2.7 gm/dl (2.5-4.0); Total Protein 5.5 gm/dl (6.4-8.2); Troponin I < 0.015 ng/ml (0-0.045)
[2019-10-19] MEDS ORDERED: LACTULOSE SYRUP 30 GM/45 ML UDP PO STA (17:14)
--- NOTE | 2019-10-19 17:52 | History & Physical Report ---
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: Continue rifaximin 550mg PO BID Continue lactulose 20g PO daily -> increase as needed to aim for 3-4 BM/day (3) Myelodysplastic syndrome: Thrombocytopenia with a platelet count of 84,000 Hemoglobin 9.9 g/Renetta Follow serial lab We will avoid chemical prophylaxis for DVT secondary to thrombocytopenia (4) Peptic ulcer disease: Continue omeprazole No current abdominal pain (5) Controlled type 2 diabetes mellitus, with long-term current use of insulin: Sliding scale insulin with NovoLog Will request diabetic consult for glycemic management with pharmacy Patient currently clear liquid diet -advance as tolerated (6) Hypothyroidism: Continue home meds (7) Seizure disorder: Continue home meds as ordered at home Patient denies recent seizure Follows with Dr. Gonzalez as an outpatient No indication at this time for seizure precautions (8) Chronic migraine: Hold triptans as patient has encephalopathy The patient complains of headache will treat as needed (9) DVT prophylaxis: MIRYAM ribeiro SCDs No chemical prophylaxis secondary to thrombocytopenia and altered mental status Out of bed with assistance Please refer to Dr. Sammy Pérez's addendum for further recommendations, corrections, additions. (10) Hypomagnesemia: Continue home dose of Slow-Mag daily at lunch Received replacement in the emergency department Check repeat magnesium level in the morning History of Present Illness Primary Care Provider: Balaji Zaragoza DO Attending: Dr. Pérez Is a 53-year-old female known to the service. She most recently was admitted 09/17/2019 with altered mental state. Past medical history includes liver cirrhosis, recurrent episodes of hepatic encephalopathy, pseudoseizure history, diabetes mellitus, severe persistent asthma, myelodysplastic syndrome with chronic thrombocytopenia, hypothyroidism, chronic reflux esophagitis. The patient presents to the emergency department was completely obtunded. She was accompanied by her who since has left to go home. At the time of my examination, the patient awakens easily to verbal stimuli and is able to give a history and confirm medication taken at home.She reports that she takes lactulo se at home as well as Keppra and she has been taking her doses as prescribed. She follows with Dr. Balaji Ocampo in [place]. She also reports that she has a "liver specialist" but cannot recall the name.She says that she has periodic nausea but no vomiting. She also reports diarrhea but he attributes that to her lactulose regimen. Appetite has been decreased recently. She denies early satiety.Most recent hemoglobin A1c was 4.7 on 09/18/2019.Review of all of her A1c show that she is very well controlled.She denies any lower extremity pain. She has no loss of function or neurological deficits that she is aware of other than her altered mental status.She denies any other recent illness. She denies any fever or chills. She has no vomiting but she does have nausea. She has no recent travel. She has no cough. She has no productive sputum. She denies any contact with COVID positive patients or patients from endemic areas. Allergies Allergy/AdvReac Type Severity Reaction Status Date / Time metronidazole Allergy Severe SEIZURE Verified 10/19/19 16:30 tramadol Allergy Severe SEIZURES Verified 10/19/19 16:30 amoxicillin Allergy Intermediate HIVES; Has Verified 10/19/19 16:30 tolerated cephalosporins (Rocephin, Ceftin,Keflex baclofen Allergy Intermediate RASH Verified 10/19/19 16:30 butalbital Allergy Intermediate HIVES Verified 10/19/19 16:30 cat dander Allergy Intermediate Hives Verified 10/19/19 16:30 ceftriaxone [From Rocephin] Allergy Intermediate Hives Verified 10/19/19 16:30 clarithromycin Allergy Intermediate RASH Verified 10/19/19 16:30 clavulanic acid Allergy Intermediate Diarrhea Verified 10/19/19 16:30 dicyclomine Allergy Intermediate HIVES Verified 10/19/19 16:30 dog dander Allergy Intermediate Hives Verified 10/19/19 16:30 horse dander Allergy Intermediate Hives Verified 10/19/19 16:30 pollen extracts Allergy Intermediate Hives Verified 10/19/19 16:30 Tetracyclines Allergy Intermediate DOXYCYCLINE Verified 10/19/19 16:30 -HIVES adhesive Allergy Mild RASH, Verified 10/19/19 16:30 DUODERM=RED,ITCHY sulindac Allergy Mild ALLERGY Verified 10/19/19 16:30 LISTED "CLONDORAL"--HIVES azithromycin Allergy Unknown Verified 10/19/19 16:30 Cephalosporins AdvReac Severe TURNS Verified 10/19/19 16:30 STOOL VERY DARK furosemide AdvReac Severe HIVES Verified 10/19/19 16:30 levofloxacin [From Levaquin] AdvReac Severe Vomiting Verified 10/19/19 16:30 metoclopramide AdvReac Severe SEIZURES Verified 10/19/19 16:30 paroxetine [From Paxil] AdvReac Severe Vomiting Verified 10/19/19 16:30 cefdinir AdvReac Intermediate Diarrhea Verified 10/19/19 16:30 celecoxib AdvReac Mild HIVES Verified 10/19/19 16:30 Home Medications Home Medications Medication Instructions Recorded Confirmed Type multivitamin [Multiple Vitamins] 1 tab PO QDL 12/26/17 10/19/19 History Probiotic 0 mmu cells PO QDL 09/20/18 10/19/19 History cholecalciferol (vitamin D3) 1,000 unit PO QDL 09/20/18 10/19/19 History [Vitamin D3] vitamin A 8,000 unit PO QDL 09/20/18 10/19/19 History vitamin B complex 1 tab PO QDL 09/20/18 10/19/19 History promethazine 25 mg PO Q6H PRN #12 tab 10/27/18 10/19/19 Rx cranberry 400 mg PO BID 02/04/19 10/19/19 History zinc 50 mg PO QDL 02/09/19 10/19/19 History melatonin 10 mg capsule 15 mg PO HS cap 03/30/19 10/19/19 History epinephrine 0.3 mg/0.3 mL 0.3 mg IM Q10M PRN 04/02/19 10/19/19 History injection, auto-injector lecithin 1,200 mg capsule 1,200 mg PO QDL 04/29/19 10/19/19 History loratadine 10 mg tablet 10 mg PO QAM 04/29/19 10/19/19 History Slow-Mag 143 mg PO QDL 06/10/19 10/19/19 History edjdtbiemrxeokiqazvchy-aqvutmhp-yydlvbjv 2 drops OP TID #10 ml 07/26/19 10/19/19 Rx 80 0.5 %-1 %-0.5 % eye drops sodium chloride 0.65 % nasal spray 1 sprays INTNAS BID PRN #15 ml 07/26/19 10/19/19 Rx aerosol ipratropium 0.5 mg-albuterol 3 mg 3 ml INH QID PRN #90 ml 07/30/19 10/19/19 Rx (2.5 mg base)/3 mL nebulization soln omeprazole 40 mg capsule,delayed 40 mg PO QAM #90 cap 08/02/19 10/19/19 Rx release terconazole 1 appl PV HS 08/13/19 10/19/19 History rifaximin 550 mg tablet 550 mg PO BID #60 tab 09/06/19 10/19/19 Rx levetiracetam 750 mg tablet 1,500 mg PO BID 30 Days #120 tab 09/09/19 10/19/19 Rx topiramate 100 mg tablet 100 mg PO BID #60 tab 09/09/19 10/19/19 Rx insulin aspart U-100 100 unit/mL See Rx Instructions SQ .COMPLEX 09/24/19 10/19/19 Rx (3 mL) subcutaneous pen #15 ml oxcarbazepine 300 mg tablet 300 mg PO .COMPLEX #90 tab 09/24/19 10/19/19 Rx rizatriptan 10 mg disintegrating 10 mg PO .COMPLEX PRN 30 Days #9 09/24/19 10/19/19 Rx tablet tab insulin degludec [Tresiba 12 units SUBCUT QAM 10/10/19 10/19/19 History FlexTouch U-100] lactulose 40 - 45 ml PO QAM 10/10/19 10/19/19 History melatonin 5 mg PO HS PRN 10/10/19 10/19/19 History spironolactone 50 mg PO QAM 10/10/19 10/19/19 History ciprofloxacin HCl [Cipro] 500 mg PO Q12H 10/19/19 10/19/19 History furosemide [Lasix] 20 mg PO DIRECTED 10/19/19 10/19/19 History levothyroxine [Euthyrox] 50 mcg PO QAM 10/19/19 10/19/19 History Past Med/Surg History Medical History Allergic rhinitis Asthma STABLE Blepharitis of both eyes (Inactive) Depression Dysphagia GERD (gastroesophageal reflux disease) CONTROLLED Hemorrhoids (Inactive) Hepatic encephalopathy HX; ON LACTULOSE/XIFAXAN Hx of migraines Hyperammonemia (Acute) Hypocalcemia (Inactive) Hypothyroidism Myoclonic seizure "FREQUENT MYOCLONIC SEIZURES" FOLLOWS WITH DR. GONZALEZ Never a smoker (Inactive) Nonalcoholic fatty liver disease (Inactive) Pancytopenia (Acute) CHRONIC Parkinsonism (Acute) Pneumonia (Inactive) Polydipsia (Resolved) Seizure disorder (05/26/11) + PSEUDOSEIZURES Spleen enlargement (Acute) Surgical History History of ankle surgery B/L History of appendectomy History of cholecystectomy History of colonoscopy History of esophagogastroduodenoscopy (EGD) History of kyphoplasty History of surgery on arm LEFT History of tooth extraction Hx of carpal tunnel repair B/L Hx of cataract extraction B/L S/P laminectomy lumbar spine S/P nasal surgery nasal bone fracture repair S/P TIFFANIE-BSO (1997) Family History Other Adopted No pertinent family history Social History Smoking Status: Never smoker Tobacco Type: Cigarettes Second Hand Exposure: No; Hx Alcohol Use: No Hx Substance Use: No Preferred Language: Azeri Communication Ability: Effective Visual Impairment: No Limitations Field Care Advocate Required: No Beliefs That Will Affect Care: None marital status: Current Living Situation: Spouse Current Living Situation Comment: Lives with in apartment current occupational status: unemployed and disabled How many Children do You have: 0 Other Information That Helps Us Care for You: No Feels Safe at Home: Yes Safety Concerns: Feels Safe At This Time Seatbelt Use: always Review of Systems Review of Systems: All systems reviewed & are unremarkable except as noted in HPI & below Physical Exam Physical Exam: GENERAL : Minimal distress. Able to respond appropriately questions. EYES: No icterus, gaze conjugate. Pupils equal round and reactive to light. Pupils track appropriately. NOSE: No evidence of epistaxis. No evidence of septal breech. MOUTH: No lesions or candidiasis. Mucosa is moist. Tongue is midline. No facial droop. NECK: Supple LUNGS: CTA B/L, no wheezes, rales or rhonchi. Good inspirational effort. HEART: Regular, rate controlled. No appreciation of murmurs gallops or rubs. ABDOMEN: Soft, NT, ND, BS Present. No rebound tenderness or tenderness to deep palpation. EXTREMITIES: Trace bilateral LE edema, pedal pulses intact and equal bilaterally NEURO: A&OX3. No pronator drift. Pupils equal round reactive to light. Tongue is midline. No facial droop. Cerebellar function intact with jnyegh-ts-kjby and rapid alternating movements. Romberg is unequivocal. Patient does have some slurred speech but that is most likely secondary to her encephalopathy. No other focal deficits appreciated. Results & Data Results & Data ([facility]) Vital Signs (Past 12 Hours) Vital Signs Temp Pulse Resp BP Pulse Ox 10/19/19 17:01 67 18 100 10/19/19 17:00 68 20 123/59 L 100 10/19/19 16:42 75 12 10/19/19 16:31 75 20 109/59 L 99 10/19/19 16:30 74 18 100 10/19/19 16:00 74 20 100 10/19/19 15:58 74 20 100 10/19/19 15:55 76 23 99 10/19/19 15:43 36.8 C 77 15 118/75 98 Laboratory Results 10/19/19 16:18 10/19/19 16:26 10/19/19 16:15 ABG pH 7.44 ABG pCO2 28 L ABG pO2 106 H ABG HCO3 18 L ABG O2 Saturation 98.2 H ABG Base Excess -4.6 Magnesium 1.[address] SCAN OF THE BRAIN WITHOUT IV CONTRAST CLINICAL HISTORY: Change in mental status. COMPARISON STUDY: Multiple prior CT scans of the brain, most recently dated 09/21/2019. TECHNIQUE: Unenhanced axial CT scan of the brain is performed from the vertex to the skull base. A dose lowering technique was utilized adhering to the principles of ALARA. CT DOSE: 537.48 mGy.cm FINDINGS: Brain parenchyma: There is asymmetric atrophy of the cerebellum. There is no hemorrhage, mass effect, or evidence of acute territorial ischemia by CT criteria. Braxton-white matter differentiation is preserved. No extra-axial fluid collection is seen. Ventricles, sulci, cisterns: Normal in configuration. Intracranial vasculature: There is atherosclerotic calcification of the cavernous carotid arteries. Calvarium: Unremarkable. Sinuses and mastoids: The visualized paranasal sinuses are clear. The mastoid air cells are well pneumatized. Orbits: The bony orbits are grossly intact. There are bilateral ocular lens implants. IMPRESSION: There is no hemorrhage, mass effect, or evidence of acute territorial ischemia by CT criteria. Electronically signed by: Aiden Randolph M.D. 10/19/2019 4:43 PM XR chest 1V portable HISTORY: weakness COMPARISON: Chest 10/10/2019. FINDINGS: There are low lung volumes. The heart remains mildly enlarged. Right jugular Port-A-Cath remains at the distal SVC. No pleural effusions. No pneumothorax. The lungs are clear. Postoperative changes again noted within the proximal left humerus. IMPRESSION: No significant change compared to the prior study. No acute process. Stable mild cardiomegaly. Electronically signed by: Talon Cruz M.D. 10/19/2019 4:37 PM Code Status & VTE Plan Code Status Full resuscitation VTE Prophylaxis Plan VTE Prophylaxis will be ordered: Yes Reason for no VTE drug order: Contraindicated Supervising Physician Co-Signing Physician Notes I personally saw and examined the patient. I verified all tai points and agree with GHULAM Bourgeois with the following exceptions and/or additions: 53 yo female with liver cirrhosis secondary to SINGLETARY with altered mental state similar to prior presentations where she is almost back to her usual self on admission. On this occasion she had outpatient treatment for UTI with symptom of dysuria. Not resolved with macrobid and started ciprofloxacin yesterday. feel the patient was much more fatigued and sleeping more prior to starting this medication. Patient requesting ciprofloxacin as she is still having dysuria although improved after she started this yesterday. Associated lower back pain. The patient mainly wants to discuss having apple sauce with her medication and making sure she gets a diet coke in the morning. O/E Abdo SNT, no CVA tenderness, no abdominal pain, Patient at baseline from her prior admissions, no respiratory distress. A/P As above - multiple admissions for the same, would avoid any extensive further workup. Mental state has never really correlated well with ammonia - as long as having 3-4 BM a day and mental state improved I am not too concerned about her ammonia level, lactulose should be adjusted to achieve this. I would continue treatment with ciprofloxacin for UTI given prior culture results for 2 further days. No CVA tenderness to suggest pyelonephritis. No significant abdominal pain to suggest SBP and quick improvement in mental state would suggest against this diagnosis. Metabolic encephalopathy - suspect she was dehydrated with current UTI while on diuretics and improvement due to IV fluids. No need to continue these as risk of increasing ascites and mental state already improved. Ok to continue usual diuretics in AM with possible discharge home tomorrow. 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 K75.81; K74.60 Myelodysplastic syndrome D46.9 Peptic ulcer disease K27.9 Controlled type 2 diabetes mellitus, with long-term current use of insulin E11.69; Z79.4 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 complication status: with other specified complication Hypothyroidism E03.9 Hypothyroidism type: unspecified Seizure disorder G40.909 Chronic migraine G43.709 DVT prophylaxis Z29.9 Hypomagnesemia E83.42 Time Spent (min) 60 (1) Hypothyroidism Hypothyroidism type: unspecified Qualified Code(s): E03.9 - Hypothyroidism, unspecified (2) Controlled type 2 diabetes mellitus, with long-term current use of insulin 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 complication status: with other specified complication Qualified Code(s): E11.69 - Type 2 diabetes mellitus with other specified complication; Z79.4 - FDC (current) use of insulin
[2019-10-19] MEDS ORDERED: ALBUT/IPRATROP 3MG/0.5MG NEB 3 ML VIAL INH PRN (20:01)
[2019-10-19] MEDS ORDERED: GLUCAGON FOR INJ 1 MG VIAL SQ PRN (20:01)
[2019-10-19] MEDS ORDERED: GLUCOSE 40% GEL 15 GM TUBE PO PRN (20:01)
[2019-10-19] MEDS ORDERED: CARBOHYDRATES FOR HYPOGLYCEMIA PO PRN (20:01)
[2019-10-19] MEDS ORDERED: DEXTROSE 50% 50 ML SYRINGE IV PRN (20:01)
[2019-10-19] MEDS ORDERED: GLUCOSE 10 TABS/TUBE PO PRN (20:01)
[2019-10-19] MEDS ORDERED: PHARMACY GLYCEMIC MGMT CONSULT PRN (20:18)
[2019-10-19] MEDS: TOPIRAMATE 100 MG TAB PO SCH (20:53)
[2019-10-19] MEDS: RIFAXIMIN 550 MG TABLET PO SCH (20:53)
[2019-10-19] MEDS: NSS + 20MEQ KCL 20 MEQ/1,000 ML BAG IV SCH ×2 (20:54→23:00)
[2019-10-19] MEDS: levETIRAcetam 500 MG TAB PO SCH (20:54)
[2019-10-19] MEDS ORDERED: PATIENT'S HEIGHT AND/OR WEIGHT NEEDED SCH (21:00)
[2019-10-19] MEDS ORDERED: OXcarbazepine 150 MG TABLET PO SCH (21:00)
[2019-10-19 21:47] VITALS: O2SAT 100
[2019-10-19 22:32] LABS: Appearance Urine Clear (Clear); Bacteria Urine Automated Negative (Negative); Bilirubin Urine Negative (Negative); Blood Urine Negative (Negative); Color Urine Yellow; Glucose Urine UA Negative (Negative); Ketones Urine Negative (Negative); Leukocyte Esterase Urine 1+ (Negative); Nitrite Urine Negative (Negative); Protein Urine Negative (Negative); RBC Urine Automated 0-4 /hpf (0-4); Specific Gravity Urine 1.012 (1.000-1.030); Urobilinogen Urine Negative (Negative); WBC Urine Automated >30 /hpf (0-5); pH Urine 7.5 (4.5-7.5)
[2019-10-19] MEDS: INSULIN ASPART 100 UNITS/ML 3 ML PEN SC SCH (23:11)
[2019-10-20] MEDS: HEPARIN 100 UNIT/ML 5ML FLUSH FLUSH PRN ×2 (01:00→06:19)
[2019-10-20] MEDS ORDERED: LEVOTHYROXINE SODIUM 50 MCG TABLET PO SCH (06:30)
[2019-10-20 06:34] LABS: Hematocrit (blood only) 27.5 % (37-47); Hemoglobin 10.3 g/dL (12.0-16.0); Mean Corpuscular Hemoglobin 38.7 pg (25-34); Mean Corpuscular Hgb Conc 37.5 g/dL (32-36); Mean Corpuscular Volume 103.4 fL (80-100); RDW Coefficient of Variation 13.9 % (11.5-14.5); RDW Standard Deviation 52.1 fL (36.4-46.3); Red Blood Count 2.66 M/uL (4.2-5.4); White Blood Count 2.73 K/uL (4.8-10.8)
[2019-10-20 06:42] LABS: Mean Platelet Volume 9.7 fL (7.4-10.4); Platelet Count 91 K/uL (130-400)
[2019-10-20 07:04] LABS: Estimated Average Glucose 85 mg/dl; Hemoglobin A1C 4.6 % (4.5-5.6)
[2019-10-20 07:11] LABS: BUN Creatinine Ratio 14.4 (10-20); Calcium 7.7 mg/dl (8.5-10.1); Creatinine Clr Calc Pharmacy 151.7 ml/min; Est GFR (African American) 130.7; Est GFR (Non-African American) 112.8; Magnesium 1.8 mg/dl (1.8-2.4); Potassium 3.7 mmol/L (3.5-5.1)
[2019-10-20 07:15] LABS: Basophils # (auto) 0.03 K/uL (0-0.2); Basophils % (auto) 1.1 %; Eosinophils # (auto) 0.14 K/uL (0-0.5); Eosinophils % (auto) 5.1 %; Giant Platelets 1+; Lymphocytes # (auto) 1.05 K/uL (1.2-3.4); Lymphocytes % (auto) 38.5 %; Monocytes # (auto) 0.33 K/uL (0.11-0.59); Monocytes % (auto) 12.1 %; Neutrophils # (auto) 1.18 K/uL (1.4-6.5); Neutrophils % (auto) 43.2 %
[2019-10-20] MEDS: RIFAXIMIN 550 MG TABLET PO SCH (07:23)
[2019-10-20] MEDS: TOPIRAMATE 100 MG TAB PO SCH (07:24)
[2019-10-20] MEDS: levETIRAcetam 500 MG TAB PO SCH (07:24)
[2019-10-20] MEDS: INSULIN ASPART 100 UNITS/ML 3 ML PEN SC SCH ×2 (07:59→12:07)
--- NOTE | 2019-10-20 08:38 | Pharmacy Report ---
Glycemic Control Consultation - Date of Service October 20, 2019 - Scope Scope: Glycemic Pharmacist consulted for glycemic control and to write orders per [facility] inpatient glycemic control protocol. - Objective Weight: 88 kg Acceliasecks BSG (last 24hrs): 10/19/19 10/19/19 10/20/19 16:26 20:14 06:18 Glucose 126 H 89 POC Glucose 159 H 10/20/19 07:25 Glucose POC Glucose 90 Laboratory Data (last 24hrs): 10/19/19 10/20/19 16:26 06:18 Potassium 3.5 3.7 Carbon Dioxide 19 L 19 L Anion Gap 8.0 8.0 Creatinine 0.50 L 0.47 L Est Cr Clr Drug Dosing Not Reportable 151.7 HbA1c: Hemoglobin A1c 4.6 % (4.5-5.6) 10/20/19 06:18 - Recent Pertinent Medications Outpatient Anti-diabetic Regimen: * tresiba 12 units Qam, novolog 4-12 units with meals (up to 35 units/day) * A1c = 4.6 % 10/20/19 Risk Factors for Insulin Resistance: * Infection: cipro po * Diet: t2dm - Assessment & Plan Assessment & Plan: ASSESSMENT: * 53 year old admitted with metabolic encephalopathy. PMHx significant for myelodysplastic syndrome, peptic ulcer disease, hypothyroidism, seizure hx. Type 2 diabetic who follows [facility]. A1C on admission 4.7% - per [facility] endo notes, level likely inaccurate due to hx of MDS. Last note from endo visit from 07/05/19. Patient taking tresiba 8 units most days, but sometime up to 10 units daily per notes. Also notes use of novolog with meals * Fasting BSG this AM 89 mg/dL - patient requesting on using her home tresiba insulin. Contacted nurse this Am and will have patient bring in by lunch if wanting to use. Patient likely will need dose of basal by lunch time. Per med rec, took home dose of tresiba yesterday AM. * Will utilize novolog / stress of 2 dosing. * Received patient own insulin (tresiba and novolog) - labeled and delivered back up to floor. Per post hole digger patient refused tresiba dose for noon. PLAN FOR INPATIENT GLYCEMIC CONTROL: * Basal insulin * Tresiba 8 x 1 at lunch time today (pt refused) * Tresiba 8-10 units tomorrow AM daily * Bolus insulin * NovoLog per scale ACHS or Q6hrs while NPO * Goal Range: Low 110 mg/dL - High 140 mg/dL * Correction Factor: 25 mg/dL/unit * Nutritional / Prandial insulin per carb ratio of 1 unit per 9 grams CHO consumed PLAN FOR DISCHARGE: * A1c = 4.6% on 10/20/19 - likely inaccurate due to current disease states (hypothyroidism, MDS) * Patient follows [facility] for glycemic management. Would recommend continued care with Endocrinology to adjust and manage insulin. * Please note that the plan above was derived based on current level of insulin resistance and hospital stress. These recommendations are appropriate for inpatient admission only. Plan of care upon discharge will need to be reassessed to avoid potential outpatient hypo/hyperglycemia. Thank you.
[2019-10-20] MEDS ORDERED: FUROSEMIDE 20 MG TAB PO SCH (09:00)
[2019-10-20] MEDS ORDERED: OXcarbazepine 150 MG TABLET PO SCH (09:00)
[2019-10-20] MEDS ORDERED: PANTOprazole 40 MG TAB PO SCH (09:00)
[2019-10-20] MEDS ORDERED: LACTULOSE SYRUP 30 GM/45 ML UDP PO SCH (09:00)
[2019-10-20] MEDS ORDERED: SPIRONOLACTONE 25 MG TAB PO SCH (09:00)
[2019-10-20] MEDS ORDERED: INSULIN DEGLUDEC 12 UNIT SQ SCH (09:00)
[2019-10-20] MEDS ORDERED: CIPROFLOXACIN 250 MG TAB PO SCH (09:00)
[2019-10-20] MEDS ORDERED: CHOLECALCIFEROL 1,000 UNITS 25 MCG TAB PO SCH (11:30)
[2019-10-20] MEDS ORDERED: MAGNESIUM CHLORIDE 64MG DELAYED REL TAB PO SCH (11:30)
[2019-10-20] MEDS ORDERED: NON-FORMULARY MEDICATION (Lecithin 1,200 MG) PO SCH (11:30)
--- NOTE | 2019-10-20 12:27 | Electrocardiogram Report ---
Test Reason : Blood Pressure : / mmHG Vent. Rate : 074 BPM Atrial Rate : 074 BPM P-R Int : 196 ms QRS Dur : 098 ms QT Int : 432 ms P-R-T Axes : 030 -07 027 degrees QTc Int : 479 ms Normal sinus rhythm Normal ECG When compared with ECG of 10-OCT-2019 20:36, No significant change was found Confirmed by Hemant Garcia ([id number]) on 10/20/2019 12:26:49 PM Referred By: REFERRED SELF Confirmed By:Hemant Garcia
--- NOTE | 2019-10-20 12:40 | Electrocardiogram Report ---
Test Reason : Blood Pressure : / mmHG Vent. Rate : 065 BPM Atrial Rate : 065 BPM P-R Int : 186 ms QRS Dur : 094 ms QT Int : 444 ms P-R-T Axes : 044 -02 025 degrees QTc Int : 461 ms Normal sinus rhythm Normal ECG When compared with ECG of 19-OCT-2019 16:11, (unconfirmed) No significant change was found Confirmed by Hemant Garcia ([id number]) on 10/20/2019 12:40:27 PM Referred By: REFERRED SELF Confirmed By:Hemant Garcia
[2019-10-20] MEDS ORDERED: INSULIN DEGLUDEC 100 UNIT/ML SQ SCH (13:00)
--- NOTE | 2019-10-20 13:29 | Discharge Summary ---
Date of Service October 20, 2019 Admission HPI Per Admitting Provider Attending: Dr. Pérez Is a 53-year-old female known to the service. She most recently was admitted 09/17/2019 with altered mental state. Past medical history includes liver cirrhosis, recurrent episodes of hepatic encephalopathy, pseudoseizure history, diabetes mellitus, severe persistent asthma, myelodysplastic syndrome with chronic thrombocytopenia, hypothyroidism, chronic reflux esophagitis. The patient presents to the emergency department was completely obtunded. She was accompanied by her who since has left to go home. At the time of my examination, the patient awakens easily to verbal stimuli and is able to give a history and confirm medication taken at home.She reports that she takes lactulose at home as well as Keppra and she has been taking her doses as prescribed. She follows with Dr. Balaji Ocampo in [place]. She also reports that she has a "liver specialist" but cannot recall the name.She says that she has periodic nausea but no vomiting. She also reports diarrhea but he attributes that to her lactulose regimen. Appetite has been decreased recently. She denies early satiety.Most recent hemoglobin A1c was 4.7 on 09/18/2019.Review of all of her A1c show that she is very well controlled.She denies any lower extremity pain. She has no loss of function or neurological deficits that she is aware of other than her altered mental status.She denies any other recent illness. She denies any fever or chills. She has no vomiting but she does have nausea. She has no recent travel. She has no cough. She has no productive sputum. She denies any contact with COVID positive patients or patients from endemic areas. Admission Exam Per Admitting Provider GENERAL : Minimal distress. Able to respond appropriately questions. EYES: No icterus, gaze conjugate. Pupils equal round and reactive to light. Pupils track appropriately. NOSE: No evidence of epistaxis. No evidence of septal breech. MOUTH: No lesions or candidiasis. Mucosa is moist. Tongue is midline. No facial droop. NECK: Supple LUNGS: CTA B/L, no wheezes, rales or rhonchi. Good inspirational effort. HEART: Regular, rate controlled. No appreciation of murmurs gallops or rubs. ABDOMEN: Soft, NT, ND, BS Present. No rebound tenderness or tenderness to deep palpation. EXTREMITIES: Trace bilateral LE edema, pedal pulses intact and equal bilaterally NEURO: A&OX3. No pronator drift. Pupils equal round reactive to light. Tongue is midline. No facial droop. Cerebellar function intact with taprrw-sl-fdcy and rapid alternating movements. Romberg is unequivocal. Patient does have some slurred speech but that is most likely secondary to her encephalopathy. No other focal deficits appreciated. Principal Diagnosis Hepatic Encephalopathy Discharge Exam General: A&Ox3. NAD. Cooperative. HEENT: Atraumatic, normocephalic. Pulm: CTAB A&P. -wheezes, -rales, -rhonchi. Symmetrical chest rise. No increase work of breathing. No respiratory distress. Cardiac: RRR, -mrg. Radial pulses intact and symmetrical. Trace lower extremity swelling bilaterally in the ankles Abdominal: Nontender, nondistended, soft. BS present. CN II: Visual dyer are full to confrontation. Pupils are equal and react to light and accomidation. Visual acuity grossly intact. CN III, IV, : At primary gaze, there is no eye deviation. EoM intact without nystagmus. CN V: Facial sensation is intact to soft touch in all 3 divisions bilaterally. CN VII: No facial asymmetry, CN VII: Hearing is grossly intact. CN IX, X: Phonation is normal without dysarthria. CN XI: Head turning intact CN XII: Tongue protrudes midline. Sensory: Light touch, pinprick intact in upper and low extremities without deficit or asymmetry. Strength: RUE: Shoulder flexion/extension/internal rotation/external rotation, elbow flexion/extension, finger flexion/extension, microsoft dynamics consultant strength, interosseous 5/5 LUE: Shoulder flexion/extension/internal rotation/external rotation, elbow flexion/extension, finger flexion/extension, microsoft dynamics consultant strength, interosseous 5/5 RLE: Hip flexion, knee flexion/extension, ankle plantar flexion/dorsiflexion 5/5 LLE: Hip flexion, knee flexion/extension, ankle plantar flexion/dorsiflexion 5/5 Discharge Data Allergies Allergy/AdvReac Type Severity Reaction Status Date / Time metronidazole Allergy Severe SEIZURE Verified 10/19/19 16:30 tramadol Allergy Severe SEIZURES Verified 10/19/19 16:30 amoxicillin Allergy Intermediate HIVES; Has Verified 10/19/19 16:30 tolerated cephalosporins (Rocephin, Ceftin,Keflex baclofen Allergy Intermediate RASH Verified 10/19/19 16:30 butalbital Allergy Intermediate HIVES Verified 10/19/19 16:30 cat dander Allergy Intermediate Hives Verified 10/19/19 16:30 ceftriaxone [From Rocephin] Allergy Intermediate Hives Verified 10/19/19 16:30 clarithromycin Allergy Intermediate RASH Verified 10/19/19 16:30 clavulanic acid Allergy Intermediate Diarrhea Verified 10/19/19 16:30 dicyclomine Allergy Intermediate HIVES Verified 10/19/19 16:30 dog dander Allergy Intermediate Hives Verified 10/19/19 16:30 horse dander Allergy Intermediate Hives Verified 10/19/19 16:30 pollen extracts Allergy Intermediate Hives Verified 10/19/19 16:30 Tetracyclines Allergy Intermediate DOXYCYCLINE Verified 10/19/19 16:30 -HIVES adhesive Allergy Mild RASH, Verified 10/19/19 16:30 DUODERM=RED,ITCHY sulindac Allergy Mild ALLERGY Verified 10/19/19 16:30 LISTED "CLONDORAL"--HIVES azithromycin Allergy Unknown Verified 10/19/19 16:30 Cephalosporins AdvReac Severe TURNS Verified 10/19/19 16:30 STOOL VERY DARK furosemide AdvReac Severe HIVES Verified 10/19/19 16:30 levofloxacin [From Levaquin] AdvReac Severe Vomiting Verified 10/19/19 16:30 metoclopramide AdvReac Severe SEIZURES Verified 10/19/19 16:30 paroxetine [From Paxil] AdvReac Severe Vomiting Verified 10/19/19 16:30 cefdinir AdvReac Intermediate Diarrhea Verified 10/19/19 16:30 celecoxib AdvReac Mild HIVES Verified 10/19/19 16:30 Consultations 10/19/19 17:18 ED Decision to Admit Stat Ordered Studies 10/19/19 15:52 CT head/brain wo con Stat Hospital Course (1) Altered mental status: Marcelle is a 53yo F with a PMHx of 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 Altered mental status 2/2 transient metabolic encephalopathy DN is a 53-year-old female with a past medical history of recurrent encephalopathy due to severe liver disease and hyperammonemia. On admission she was obtunded with an ammonia level of nearly 200. Head CT and chest x-ray both showed no acute findings. She was admitted overnight for observation and continued on her prior to admission medications, rifaximin, and lactulose with improvement in her mental status. On morning of discharge she reported she felt normal at time of assessment, was alert and oriented x4, and denied any symptoms and felt at her normal baseline. Her ammonia had down trended to the 80s which is approximately normal for her. She was discharged to continue rifaximin and lactulose with follow-up to her PCP. Liver cirrhosis Patient has a history of chronic liver cirrhosis & SINGLETARY. She did not experience any acute decompensation of her liver cirrhosis during admission. She was discharged to follow-up with her PCP. Type 2 diabetes on insulin She was placed on sliding scale insulin overnight with adequate glycemic control and no lows or highs. She was discharged to resume her prior to admission insulin degludec and sliding scale regimen. History of seizure with pseudoseizure Patient has a history of seizure and pseudoseizure for which she is seen neurology and had EEGs in the past. She was continued on her anticonvulsants including Topamax, oxycarbazepine, and Keppra. She did not experience any seizure-like activity during her admission. On initial assessment in the ED and repeat assessment the following morning she did not show any signs of post ictal weakness and had a normal neurologic exam. GERD Her prior to admission PPI was converted to Protonix during admission. She did not experience any symptoms of reflux or gastrointestinal bleeding during admission. 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 Asthma Patient has a history of persistent asthma. She did not experience any wheezing or worsening of respiratory symptoms including any shortness of breath during admission. She was discharged to resume her prior to admission Breo. DVT prophylaxis Patient was placed on SCDs for DVT prophylaxis, no chemical prophylaxis was used secondary to thrombocytopenia and altered mental status placing concern for fall risk. The next morning she was mentating normally, and was out of bed with assistance normally. She did not experience any signs or symptoms of DVT during admission. (2) Hyperammonemia: (3) Acute confusion: (4) Metabolic encephalopathy: Total Time Total Time Spent Total Time Spent (In Minutes): <30 Discharge Plan Discharge Items Patient Disposition: Home - Self-Care Reason For Visit: HEPATIC ENCEPHALOPATHY Discharge Diagnosis: Hepatic Encephalopathy Condition on Discharge: Fair Activity: Resume your previous activity Non-emergency contact: Primary Care Provider Call non-emergency contact if: you have any medication questions, your symptoms worsen, your pain is not controlled, your pain is worsening, your pain is unusual for you, your pain is concerning for you and you have a fever Follow-up/Referrals: Balaji Zaragoza, [Primary Care Provider] - Diet: Regular Addtl Attending Provider Instructions: You were seen in the hospital for an episode of increased confusion with very high ammonia levels. Your confusion and ammonia improved overnight.Your blood work did not show any signs of an infection. You were admitted for observation overnight and continued to improve. Imaging of your brain did not show any acute abnormalities. You did not show any signs of an infection during admission. You would return to your normal baseline at time of discharge. It is critically important to continue taking both rifaximin and lactulose as prescribed which will help prevent confusion due to your existing liver disease. If you are not having at least 3-4 bowel movements per day while taking lactulose please contact your primary care provider. Excessive buildup of ammonia can cause increased confusion, sedation, and altered mental status which can be life-threatening. A followup appointment is being scheduled for you with Dr. Zaragoza, your primary care doctor. You should be seen seen within 1 week. You should receive a call to confirm this appointment. If you do not receive a call to confirm this appointment, or need to change this appointment, please call the provider's office at [phone]. If you develop any new or worsening symptoms including worsening confusion, fever, chills, sweats, chest pain, chest pressure, difficulty breathing, uncontrolled nausea/vomiting, rash, wheezing, passing out or nearly passing out, bleeding, black/bloody bowel movements, or other new or concerning symptoms please call your primary care physician at [phone], or call [phone] for re- evaluation in the emergency department if you are very concerned. Pending Studies at Discharge: No Stand-Alone Forms: [employer], Smoking Cessation Medications and DC Order Prescriptions: Continued ipratropium-albuterol 0.5 mg-3 mg(2.5 mg base)/3 mL solution for nebulization 3 ml INH QID PRN (Reason: wheezing) Qty: 90 RF: 0 omeprazole 40 mg capsule,delayed release(DR/EC) 40 mg PO QAM Qty: 90 RF: 1 Xifaxan 550 mg tablet 550 mg PO BID Qty: 60 RF: 5 Novolog Flexpen U-100 Insulin 100 unit/mL (3 mL) insulin pen See Rx Instructions SQ .COMPLEX Qty: 15 RF: 5 rizatriptan 10 mg tablet,disintegrating 10 mg PO .COMPLEX PRN (Reason: migraine headache) 30 Days Qty: 9 RF: 5 oxcarbazepine 300 mg tablet 300 mg PO .COMPLEX Qty: 90 RF: 5 melatonin 10 mg capsule 15 mg PO HS RF: 0 Refresh Optive Advanced 0.5-1-0.5 % drops 2 drops OP TID Qty: 10 RF: 0 sodium chloride [Saline Nasal] 0.65 % aerosol,spray 1 sprays INTNAS BID PRN (Reason: dry nasal passages) Qty: 15 RF: 0 levetiracetam 750 mg tablet 1,500 mg PO BID 30 Days Qty: 120 RF: 5 topiramate 100 mg tablet 100 mg PO BID Qty: 60 RF: 5 epinephrine [EpiPen 2-Graret] 0.3 mg/0.3 mL auto-injector 0.3 mg IM Q10M PRN (Reason: Anaphylaxis) RF: 0 lecithin 1,200 mg capsule 1,200 mg PO QDL RF: 0 loratadine 10 mg tablet 10 mg PO QAM RF: 0 multivitamin [Multiple Vitamins] Tablet 1 tab PO QDL RF: 0 zinc 50 mg Tablet 50 mg PO QDL RF: 0 Slow-Mag 71.5 mg Tablet,Delayed Release (Dr/Ec) 143 mg PO QDL RF: 0 vitamin A 8,000 unit Capsule 8,000 unit PO QDL RF: 0 vitamin B complex Tablet 1 tab PO QDL RF: 0 cholecalciferol (vitamin D3) [Vitamin D3] 1,000 unit Capsule 1,000 unit PO QDL RF: 0 Probiotic 3 billion cell Capsule 0 mmu cells PO QDL RF: 0 promethazine 25 mg tablet 25 mg PO Q6H PRN (Reason: sedation) Qty: 12 RF: 0 cranberry 400 mg Capsule 400 mg PO BID RF: 0 terconazole 0.4 % cream 1 appl PV HS RF: 0 melatonin 5 mg Tablet 5 mg PO HS PRN (Reason: Sleep) RF: 0 spironolactone 100 mg tablet 50 mg PO QAM RF: 0 lactulose 20 gram/30 mL solution 40 - 45 ml PO QAM RF: 0 Tresiba FlexTouch U-100 100 unit/mL (3 mL) insulin pen 12 units subcut QAM RF: 0 levothyroxine [Euthyrox] 50 mcg tablet 50 mcg PO QAM RF: 0 furosemide [Lasix] 20 mg tablet 20 mg PO DIRECTED RF: 0 Discontinued ciprofloxacin HCl [Cipro] 500 mg Tablet 500 mg PO Q12H RF: 0 Discharge Orders: Discharge Order (Routine); Ordered 10/20/19 Ordered By: Davis Faulkner Admission Data Admit Date/Time: 10/19/19 17:45 Attending Provider: Eagle Crocker Admit Provider: Sammy Pérez Primary Care Provider: Balaji Zaragoza Other Providers: Sammy Pérez Other Interventions: Discharge Summary Assessment (RN) Last Done: 10/20/19 18:10 DC Date/Time DO NOT enter until pt leaves facility: 10/20/19 19:20 Supervising Physician Co-Signing Physician Notes I personally examined the patient and verified all tai points of history and exam, discussed case, and agree with decision making with Dr Faulkner. feeling better and would like to go home vitals noted nad heent nc at mmm breathing unlabored no accessory muscles good effort skin no rashes a/p Acute hepatic encephalopathy treated with lactulose and IVF's - now improved. stable for home. otherwise as above Resident Activity Tracking Resident Involvement: Resident Care Provided Care Provided: Adult Hospital Medicine
--- NOTE | 2019-10-20 14:18 | Hospitalist Progress Note ---
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 Altered mental status due to hyperammonemia 2/2 hepatic cirrhosis 2/2 SINGLETARY DN has a history of recurrent hepatic encephalopathy Ammonia acutely elevated to nearly 200 on admission, improved overnight now in high 80s Mentation improving Continue lactulose, titrate to 3-4 bowel movements per day CThead with no acute findings, CXR with no acute findings BC/UC drawn on admit in the setting of obtunded presentation, low suspicion for infectious process with no growth to date Continue rifaximin 550 mg p.o. twice daily Patient with mildly increased swelling in her legs, spironolactone temporarily dose to 100 mg daily Myelodysplastic syndrome Chronic, counts stable CBC daily Chemoprophylaxis held on admission for mild thrombocytopenia to 84,000 History of seizure and pseudoseizure No signs of seizure activity prior to admission or during admission Continue Topamax 100 mg p.o. 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 daily GERD Continue PPI daily Type 2 diabetes mellitus on insulin Pharmacy consult placed on admission Continue basal bolus dosing Glucose checks AC/at bedtime BMP daily Patient tolerating consistent carb diet well today Hypothyroidism Continue CAR RENTAL SALES ASSISTANT Synthroid Chronic migraine No headache today Follow clinically at this time DVT prophylaxis: SCDs, chemoprophylaxis held Diet: Consistent carb Disposition: Medical/surgical CODE STATUS: Full code (5) Acute confusion: (6) Hypomagnesemia: (7) Encephalopathy due to ammonia: Admission and Anticipated Discharge Date Admission Date: October 19, 2019 Supervising Physician Co-Signing Physician Notes I personally examined the patient and verified all tai points of history and exam, discussed case, and agree with decision making with Dr Faulkner. feeling better and would like to go home vitals noted nad heent nc at mmm breathing unlabored no accessory muscles good effort skin no rashes a/p Acute hepatic encephalopathy treated with lactulose and IVF's - now improved. stable for home. otherwise as above Subjective DN is seen at the bedside this afternoon. She reports she feels that she is mentating at her normal baseline. She does not feel confused or sleepy this morning. She reports she had been taking her rifaximin and lactulose as directed prior to admission, but is not sure how many bowel movements she has been having. She has noticed some increased swelling in her legs bilaterally for which she has not but normally is told that she should increase her Spironolactone from 50 to 100 mg. She has no fevers, chills, sweats, shortness of breath, chest pain, or difficulty breathing. She does not feel that she has had any vision change or focal weakness, or seizure-like activity. She denies recent seizure activity. Review of Systems Review of Systems: All systems reviewed & are unremarkable except as noted in HPI & below Physical Exam Physical Exam: General: A&Ox3. NAD. Cooperative. HEENT: Atraumatic, normocephalic. Pulm: CTAB A&P. -wheezes, -rales, -rhonchi. Symmetrical chest rise. No increase work of breathing. No respiratory distress. Cardiac: RRR, -mrg. Radial pulses intact and symmetrical. Trace lower extremity swelling bilaterally in the ankles Abdominal: Nontender, nondistended, soft. BS present. CN II: Visual dyer are full to confrontation. Pupils are equal and react to light and accomidation. Visual acuity grossly intact. CN III, IV, : At primary gaze, there is no eye deviation. EoM intact without nystagmus. CN V: Facial sensation is intact to soft touch in all 3 divisions bilaterally. CN VII: No facial asymmetry, CN VII: Hearing is grossly intact. CN IX, X: Phonation is normal without dysarthria. CN XI: Head turning intact CN XII: Tongue protrudes midline. Sensory: Light touch, pinprick intact in upper and low extremities without deficit or asymmetry. Strength: RUE: Shoulder flexion/extension/internal rotation/external rotation, elbow flexion/extension, finger flexion/extension, evaporator operator strength, interosseous 5/5 LUE: Shoulder flexion/extension/internal rotation/external rotation, elbow flexion/extension, finger flexion/extension, evaporator operator strength, interosseous 5/5 RLE: Hip flexion, knee flexion/extension, ankle plantar flexion/dorsiflexion 5/5 LLE: Hip flexion, knee flexion/extension, ankle plantar flexion/dorsiflexion 5/5 Results & Data Results & Data ([facility]) Vital Signs (Past 12 Hours) Vital Signs Temp Pulse Resp BP Pulse Ox 10/20/19 07:38 36.7 C 65 20 119/74 100 10/20/19 04:00 36.6 C 62 20 116/72 100 Resident Activity Tracking Resident Involvement: Resident Care Provided Care Provided: Adult Hospital Medicine (1) Altered mental status Altered mental status type: somnolence Qualified Code(s): R40.0 - Somnolence
[2019-10-20] MEDS ORDERED: SPIRONOLACTONE 25 MG TAB PO ONE (15:00)
[2019-10-20 15:55] VITALS: BP 122/75; TEMP 98.2
[2019-10-20] MEDS ORDERED: INSULIN ASPART 100 UNIT/ML SC SCH (16:30)
[2019-10-20 18:12] VITALS: PULSE 74
--- NOTE | 2019-10-20 19:43 | Communication Note ---
Date of Service: October 20, 2019 code 44 note with hindsight, based on how rapidly she improved to stability and was able to go home much more quickly than expected at the time of admission, pt would have been most appropriate for observation status.
--- NOTE | 2019-10-20 19:44 | Billing Data ---
Date of Service October 20, 2019 Coding Level of Care Code 28332 OBS Care - Discharge
[2019-10-21] MEDS ORDERED: SPIRONOLACTONE 100 MG TAB PO SCH (09:00)
== END 2019-10-20 19:20 | disposition home or self-care (01) | DRG 441 ==
LOC: ED 15:41 → 2W 17:45 → SUATTDRO 17:45 → 2W 19:45

== ENCOUNTER 2019-10-31 21:21 | Inpatient (IN) ==
--- NOTE | 2019-10-31 21:57 | Emergency Department Note ---
History of Present Illness General Chief complaint: Weakness Stated complaint: WEAKNESS, LOSS OF BALANCE Time Seen by Provider: 10/31/19 21:43 Source: patient and family ( who is at the bedside) Mode of arrival: ambulatory Limitations: no limitations History of Present Illness Maximum Pain Intensity: 9 This patient comes in with weakness that is generalized. She is here with her . He says they went to [place] and then late in the morning she just been out of it since and generally weak and dizzy. He said no fever or cough. No sick contacts or COVID exposure known. She is been compliant with her medication no change in medication she is had normal bowel movements without blood or melena. No dysuria hematuria. No focal numbness or weakness. No nausea or vomiting. No headache neck pain or stiffness. She does come to the ER frequently with weakness a lot of which times are related to elevated ammonia however says she has had normal bowel movements today. Home Medications Home Medications Medication Instructions Recorded Confirmed Type multivitamin [Multiple Vitamins] 1 tab PO QDL 12/26/17 10/31/19 History Probiotic 0 mmu cells PO QDL 09/20/18 10/31/19 History cholecalciferol (vitamin D3) 1,000 unit PO QDL 09/20/18 10/31/19 History [Vitamin D3] vitamin A 8,000 unit PO QDL 09/20/18 10/31/19 History vitamin B complex 1 tab PO QDL 09/20/18 10/31/19 History promethazine 25 mg PO Q6H PRN #12 tab 10/27/18 10/31/19 Rx cranberry 400 mg PO BID 02/04/19 10/31/19 History zinc 50 mg PO QDL 02/09/19 10/31/19 History epinephrine 0.3 mg/0.3 mL 0.3 mg IM Q10M PRN 04/02/19 10/31/19 History injection, auto-injector lecithin 1,200 mg capsule 1,200 mg PO QDL 04/29/19 10/31/19 History loratadine 10 mg tablet 10 mg PO QAM 04/29/19 10/31/19 History Slow-Mag 143 mg PO QDL 06/10/19 10/31/19 History sodium chloride 0.65 % nasal spray 1 sprays INTNAS BID PRN #15 ml 07/26/19 08/0 05/20 Rx aerosol ipratropium 0.5 mg-albuterol 3 mg 3 ml INH QID PRN #90 ml 07/30/19 10/31/19 Rx (2.5 mg base)/3 mL nebulization soln omeprazole 40 mg capsule,delayed 40 mg PO QAM #90 cap 08/02/19 10/31/19 Rx release terconazole 1 appl PV HS 08/13/19 10/31/19 History rifaximin 550 mg tablet 550 mg PO BID #60 tab 09/06/19 10/31/19 Rx levetiracetam 750 mg tablet 1,500 mg PO BID 30 Days #120 tab 09/09/19 10/31/19 Rx topiramate 100 mg tablet 100 mg PO BID #60 tab 09/09/19 10/31/19 Rx insulin aspart U-100 100 unit/mL See Rx Instructions SQ .COMPLEX 09/24/19 10/31/19 Rx (3 mL) subcutaneous pen #15 ml oxcarbazepine 300 mg tablet 300 mg PO .COMPLEX #90 tab 09/24/19 10/31/19 Rx rizatriptan 10 mg disintegrating 10 mg PO .COMPLEX PRN 30 Days #9 09/24/19 10/31/19 Rx tablet tab Tresiba FlexTouch U-100 12 units SUBCUT QAM 10/10/19 10/31/19 History melatonin 5 - 15 mg PO HS PRN 10/10/19 10/31/19 History spironolactone 50 mg PO QAM 10/10/19 10/31/19 History levothyroxine [Euthyrox] 50 mcg PO QAM 10/19/19 10/31/19 History lactulose 20 gram/30 mL oral 30 - 45 ml PO QAM ml 10/27/19 10/31/19 History solution Refresh Optive Advanced 2 drops OP TID PRN 10/31/19 10/31/19 History Allergies Allergy/AdvReac Type Severity Reaction Status Date / Time metronidazole Allergy Severe SEIZURE Verified 10/31/19 22:12 tramadol Allergy Severe SEIZURES Verified 10/31/19 22:12 amoxicillin Allergy Intermediate SEE COMMENT Verified 10/31/19 22:12 baclofen Allergy Intermediate RASH Verified 10/31/19 22:12 butalbital Allergy Intermediate HIVES Verified 10/31/19 22:12 cat dander Allergy Intermediate Hives Verified 10/31/19 22:12 ceftriaxone [From Rocephin] Allergy Intermediate Hives Verified 10/31/19 22:12 clavulanic acid Allergy Intermediate Diarrhea Verified 10/31/19 22:12 dicyclomine Allergy Intermediate HIVES Verified 10/31/19 22:12 dog dander Allergy Intermediate Hives Verified 10/31/19 22:12 horse dander Allergy Intermediate Hives Verified 10/31/19 22:12 pollen extracts Allergy Intermediate Hives Verified 10/31/19 22:12 Tetracyclines Allergy Intermediate DOXYCYCLINE Verified 10/31/19 22:12 -HIVES adhesive Allergy Mild RASH, Verified 10/31/19 22:12 DUODERM=RED,ITCHY sulindac Allergy Mild ALLERGY Verified 10/31/19 22:12 LISTED "CLONDORAL"--HIVES Cephalosporins AdvReac Severe TURNS Verified 10/31/19 22:12 STOOL VERY DARK levofloxacin [From Levaquin] AdvReac Severe Vomiting Verified 10/31/19 22:12 metoclopramide AdvReac Severe SEIZURES Verified 10/31/19 22:12 paroxetine [From Paxil] AdvReac Severe Vomiting Verified 10/31/19 22:12 cefdinir AdvReac Intermediate Diarrhea Verified 10/31/19 22:12 celecoxib AdvReac Mild HIVES Verified 10/31/19 22:12 Past Med/Surg History Medical History Allergic rhinitis Asthma STABLE Blepharitis of both eyes (Inactive) Depression Dysphagia GERD (gastroesophageal reflux disease) CONTROLLED Hemorrhoids (Inactive) Hepatic encephalopathy HX; ON LACTULOSE/XIFAXAN Hx of migraines Hyperammonemia (Acute) Hypocalcemia (Inactive) Hypothyroidism Myoclonic seizure "FREQUENT MYOCLONIC SEIZURES" FOLLOWS WITH DR. YANG Never a smoker (Inactive) Nonalcoholic fatty liver disease (Inactive) Pancytopenia (Acute) CHRONIC Parkinsonism (Acute) Pneumonia (Inactive) Polydipsia (Resolved) Seizure disorder (05/26/11) + PSEUDOSEIZURES Spleen enlargement (Acute) Surgical History History of ankle surgery B/L History of appendectomy History of cholecystectomy History of colonoscopy History of esophagogastroduodenoscopy (EGD) History of kyphoplasty History of surgery on arm LEFT History of tooth extraction Hx of carpal tunnel repair B/L Hx of cataract extraction B/L S/P laminectomy lumbar spine S/P nasal surgery nasal bone fracture repair S/P TIFFANIE-BSO (1997) Family History Other Adopted No pertinent family history Social History Smoking Status: Never smoker Tobacco Type: Cigarettes Second Hand Exposure: No; Hx Alcohol Use: No Hx Substance Use: No Preferred Language: Jamaican Communication Ability: Effective Visual Impairment: No Limitations [employer] Work[employer] Required: No Beliefs That Will Affect Care: None marital status: Current Living Situation: Spouse Current Living Situation Comment: Lives with in apartment current occupational status: unemployed and disabled How many Children do You have: 0 Feels Safe at Home: Yes Seatbelt Use: always Review of Systems A total of 10 systems reviewed and were otherwise negative Physical Exam Vital Signs Vital Signs - 24 hr 10/31/19 21:25 10/31/19 22:00 10/31/19 22:09 Temperature 37.8 C H Temperature Source Oral Pulse Rate 105 H 105 H Pulse Rate from SpO2 Sensor Respiratory Rate 18 24 Respiratory Effort / Characteristics Non-Labored Respiratory Depth Normal Blood Pressure 140/84 131/68 Blood Pressure Mean 102 95 Pulse Oximetry 100 98 98 Oxygen Delivery Method Room Air Room Air Sepsis Recent Fever Within 48 Hours No Sepsis New/Unexplained Change in Mental Status No Sepsis Action Taken by Nursing No Action Required 10/31/19 22:30 10/31/19 23:00 10/31/19 23:30 Temperature Temperature Source Pulse Rate 103 H 99 H 97 H Pulse Rate from SpO2 Sensor 99 H 98 H Respiratory Rate 24 24 24 Respiratory Effort / Characteristics Respiratory Depth Blood Pressure 124/69 134/67 126/66 Blood Pressure Mean 96 78 78 Pulse Oximetry 98 98 98 Oxygen Delivery Method Room Air Room Air Sepsis Recent Fever Within 48 Hours Sepsis New/Unexplained Change in Mental Status Sepsis Action Taken by Nursing 11/01/19 00:00 11/01/19 00:30 11/01/19 01:00 Temperature Temperature Source Pulse Rate 103 H 95 H 96 H Pulse Rate from SpO2 Sensor 103 H 95 H 95 H Respiratory Rate 20 24 24 Respiratory Effort / Characteristics Respiratory Depth Blood Pressure 119/58 L 132/67 114/68 Blood Pressure Mean 82 99 98 Pulse Oximetry 99 98 100 Oxygen Delivery Method Room Air Room Air Room Air Sepsis Recent Fever Within 48 Hours Sepsis New/Unexplained Change in Mental Status Sepsis Action Taken by Nursing General: Well developed well nourished sleepy but arousable middle-aged female who answers all questions appropriately in no acute distress, breathing comfortably on room air. Normal speech HEENT: Normal cephalic atraumatic. Pupils are equal round and reactive to light. Extraocular movements are intact. Oropharynx is pink with moist mucous membranes. No swelling of the mouth lips or tongue. Neck: Supple with a midline trachea. No meningeal signs or stiffness, no JVD or bruits. No Stridor. Chest: Clear to auscultation bilaterally. No wheezes or rhonchi. No increased work of breathing. A port in right chest Heart: Regular rate and rhythm without murmurs or gallops. Abdomen: Soft nontender, nondistended without rebound guarding or rigidity. Extremities: No cyanosis clubbing or edema. No calf tenderness or assymetry Spine/Back. Non tender to palpation. No CVA tenderness Skin: Good turgor without rashes. Neurologic exam: Cranial nerves two through 12 are intact. Motor and sensation are intact and symmetrical throughout. Course Administered Medications Discontinued Medications Sodium Chloride (Nss 1000ml) 1,000 mls @ 999 mls/hr IV .Q1H1M ONE Stop: 11/01/19 00:27 Last Infusion: 11/01/19 00:44 Dose: 0 mls/hr Documented by: [id number] Admin: 10/31/19 23:40 Dose: 999 mls/hr Documented by: [id number] Sodium Chloride (Nss 1000ml) 1,000 mls @ 999 mls/hr IV .Q1H1M ONE Stop: 11/01/19 00:24 Last Admin: 11/01/19 00:44 Dose: 999 mls/hr Documented by: [id number] Medical Decision Making Differential Diagnosis Sepsis, elevated ammonia, intracranial process, dehydration, diabetic emergency, electrolyte or metabolic abnormality, dehydration Medical Records Attestation: I reviewed the patient's medical records. Home Medications Current Medication List: was personally reviewed by me Laboratory Data Attestation: I reviewed the patient's lab results. Result diagrams: 10/31/19 22:05 10/31/19 22:05 Lab Results 10/31/19 10/31/19 10/31/19 Range/Units 22:05 22:05 22:05 WBC 4.84 (4.8-10.8) K/uL RBC 2.80 L (4.2-5.4) M/uL Hgb 10.7 L (12.0-16.0) g/dL Hct 29.6 L (37-47) % MCV 105.7 H (80-100) fL MCH 38.2 H (25-34) pg MCHC 36.1 H (32-36) g/dL RDW Std Deviation 51.7 H (36.4-46.3) fL RDW Coeff of Irina 13.7 (11.5-14.5) % Plt Count 86 L (130-400) K/uL MPV 10.1 (7.4-10.4) fL Immature Gran % (Auto) 0.2 % Neut % (Auto) 86.6 % Lymph % (Auto) 6.6 % Divide % (Auto) 5.8 % Eos % (Auto) 0.4 % Baso % (Auto) 0.4 % Neut # (Auto) 4.19 (1.4-6.5) K/uL Lymph # (Auto) 0.32 L (1.2-3.4) K/uL Divide # (Auto) 0.28 (0.11-0.59) K/uL Eos # (Auto) 0.02 (0-0.5) K/uL Baso # (Auto) 0.02 (0-0.2) K/uL Immature Gran # (Auto) 0.01 (0.00-0.02) K/uL Ovalocytes 1+ PT 14.1 H (9.0-12.0) Seconds INR 1.4 H (0.9-1.1) APTT 34.2 H (21.0-31.0) Seconds PTT Ratio 1.2 Sodium 140 (136-145) mmol/L Potassium 4.0 (3.5-5.1) mmol/L Chloride 112 H (98-107) mmol/L Carbon Dioxide 19 L (21-32) mmol/L Anion Gap 8.0 (3-11) BUN 16 (7-18) mg/dl Creatinine 0.69 (0.6-1.2) mg/dl Est Cr Clr Drug Dosing 93.7 ml/min Est GFR ( Amer) 115.2 Est GFR (Non-Af Amer) 99.4 BUN/Creatinine Ratio 22.4 H (10-20) Glucose 176 H (70-99) mg/dl Lactate (0.4-2.0) mmol/L Calcium 8.1 L (8.5-10.1) mg/dl Magnesium 1.7 L (1.8-2.4) mg/dl Total Bilirubin 2.6 H (0.2-1) mg/dl AST 54 H (15-37) U/L ALT 54 (12-78) U/L Alkaline Phosphatase 132 H (45-117) U/L Ammonia (11-32) umol/L Troponin I < 0.015 (0-0.045) ng/ml Total Protein 6.1 L (6.4-8.2) gm/dl Albumin 3.1 L (3.4-5.0) gm/dl Globulin 3.0 (2.5-4.0) gm/dl Albumin/Globulin Ratio 1.0 (0.9-2) Urine Color Urine Appearance (Clear) Urine pH (4.5-7.5) Ur Specific Herrick (1.000-1.030) Urine Protein (Negative) Urine Glucose (UA) (Negative) Urine Ketones (Negative) Urine Blood (Negative) Urine Nitrite (Negative) Urine Bilirubin (Negative) Urine Urobilinogen (Negative) Ur Leukocyte Esterase (Negative) Urine WBC (Auto) (0-5) /hpf Urine RBC (Auto) (0-4) /hpf U Hyaline Cast (Auto) (0-5) /lpf U Epithel Cells (Auto) (0-5) /lpf Urine Bacteria (Auto) (Negative) 10/31/19 10/31/19 10/31/19 Range/Units 22:05 22:05 22:25 WBC (4.8-10.8) K/uL RBC (4.2-5.4) M/uL Hgb (12.0-16.0) g/dL Hct (37-47) % MCV (80-100) fL MCH (25-34) pg MCHC (32-36) g/dL RDW Std Deviation (36.4-46.3) fL RDW Coeff of Irina (11.5-14.5) % Plt Count (130-400) K/uL MPV (7.4-10.4) fL Immature Gran % (Auto) % Neut % (Auto) % Lymph % (Auto) % Divide % (Auto) % Eos % (Auto) % Baso % (Auto) % Neut # (Auto) (1.4-6.5) K/uL Lymph # (Auto) (1.2-3.4) K/uL Divide # (Auto) (0.11-0.59) K/uL Eos # (Auto) (0-0.5) K/uL Baso # (Auto) (0-0.2) K/uL Immature Gran # (Auto) (0.00-0.02) K/uL Ovalocytes PT (9.0-12.0) Seconds INR (0.9-1.1) APTT (21.0-31.0) Seconds PTT Ratio Sodium (136-145) mmol/L Potassium (3.5-5.1) mmol/L Chloride (98-107) mmol/L Carbon Dioxide (21-32) mmol/L Anion Gap (3-11) BUN (7-18) mg/dl Creatinine (0.6-1.2) mg/dl Est Cr Clr Drug Dosing ml/min Est GFR ( Amer) Est GFR (Non-Af Amer) BUN/Creatinine Ratio (10-20) Glucose (70-99) mg/dl Lactate 1.9 (0.4-2.0) mmol/L Calcium (8.5-10.1) mg/dl Magnesium (1.8-2.4) mg/dl Total Bilirubin (0.2-1) mg/dl AST (15-37) U/L ALT (12-78) U/L Alkaline Phosphatase (45-117) U/L Ammonia 54.9 H (11-32) umol/L Troponin I (0-0.045) ng/ml Total Protein (6.4-8.2) gm/dl Albumin (3.4-5.0) gm/dl Globulin (2.5-4.0) gm/dl Albumin/Globulin Ratio (0.9-2) Urine Color Dark Yellow Urine Appearance Clear (Clear) Urine pH 6.5 (4.5-7.5) Ur Specific Herrick 1.021 (1.000-1.030) Urine Protein Trace H (Negative) Urine Glucose (UA) Negative (Negative) Urine Ketones Trace H (Negative) Urine Blood Negative (Negative) Urine Nitrite Negative (Negative) Urine Bilirubin Negative (Negative) Urine Urobilinogen Negative (Negative) Ur Leukocyte Esterase Trace H (Negative) Urine WBC (Auto) 1-5 (0-5) /hpf Urine RBC (Auto) 0-4 (0-4) /hpf U Hyaline Cast (Auto) 1-5 (0-5) /lpf U Epithel Cells (Auto) 10-20 H (0-5) /lpf Urine Bacteria (Auto) Negative (Negative) Imaging Data Attestation: I personally reviewed and interpreted this imaging study as follows: ECG Data Attestation: I personally reviewed and interpreted this ECG as follows: Indication: + weakness Rate (beats per minute): 103 Rhythm: + sinus tachycardia ECG Intervals/blocks: + Normal QRS, + Normal QT and + Normal ME ECG [place]: + Normal ECG ST segments: + Normal ST segments ECG Findings: no PACs and no PVCs Comparison ECG Date: from (10/20/19) Change: the following changes noted (rate has increased) Blood Pressure Blood Pressure Findings: Normal blood pressure MDM Narrative This patient comes in with generalized weakness. A full sepsis work-up was obtained. Her a port was accessed she was placed on a stereotype finisher she was hydrated normal saline. Blood cultures were obtained urinalysis and urine culture were obtained. Chest x-ray is also obtained. She was reassessed frequently. Chest x-ray was unremarkable. EKG was slightly tachycardic but shows no ischemic changes. Troponin is not elevated. She has no elevation of her white count or lactic acid. Her platelets are mildly low at baseline. She has no evidence to suggest acute diabetic emergency or electrolyte or metabolic abnormality. Her ammonia is mildly elevated But she is normally much higher. She has no acute neurologic deficits focally and has had multiple CAT scans of her head in the past and I do not feel she needs one tonight. She does not feel she can go home and says she is too weak. I am concerned that she has a mild temperature chair and may be early sepsis with all her complicated medical problems she has going on. She did receive IV fluid bolus while she is in the ED and I have consulted Dr. Beatty and she saw the patient in the ER Continuous cardiac monitoring: An order was placed for continuous cardiac monitoring. The patient was noted to be sinus tachycardia with a rate of 105 Impression & Plan Weakness, Increased ammonia level, Thrombocytopenia, Sleepiness Discharge Plan Visit Data Chief Complaint: Weakness Stated Complaint: WEAKNESS, LOSS OF BALANCE ED Provider: Jorden Doyle Discharge Problem: Weakness, Increased ammonia level, Thrombocytopenia, Sleepiness Discharge Instructions Interventions: ED Discharge Assessment Last Done: 11/01/19 01:21 Forms Stand Alone Forms: My [facility] [employer] Prescriptions Prescriptions: No Action ipratropium-albuterol 0.5 mg-3 mg(2.5 mg base)/3 mL solution for nebulization 3 ml INH QID PRN (Reason: wheezing) Qty: 90 RF: 0 omeprazole 40 mg capsule,delayed release(DR/EC) 40 mg PO QAM Qty: 90 RF: 1 Xifaxan 550 mg tablet 550 mg PO BID Qty: 60 RF: 5 Novolog Flexpen U-100 Insulin 100 unit/mL (3 mL) insulin pen See Rx Instructions SQ .COMPLEX Qty: 15 RF: 5 rizatriptan 10 mg tablet,disintegrating 10 mg PO .COMPLEX PRN (Reason: migraine headache) 30 Days Qty: 9 RF: 5 oxcarbazepine 300 mg tablet 300 mg PO .COMPLEX Qty: 90 RF: 5 lactulose 20 gram/30 mL solution 30 - 45 ml PO QAM RF: 0 sodium chloride [Saline Nasal] 0.65 % aerosol,spray 1 sprays INTNAS BID PRN (Reason: dry nasal passages) Qty: 15 RF: 0 levetiracetam 750 mg tablet 1,500 mg PO BID 30 Days Qty: 120 RF: 5 topiramate 100 mg tablet 100 mg PO BID Qty: 60 RF: 5 epinephrine [EpiPen 2-Garret] 0.3 mg/0.3 mL auto-injector 0.3 mg IM Q10M PRN (Reason: Anaphylaxis) RF: 0 lecithin 1,200 mg capsule 1,200 mg PO QDL RF: 0 loratadine 10 mg tablet 10 mg PO QAM RF: 0 multivitamin [Multiple Vitamins] Tablet 1 tab PO QDL RF: 0 zinc 50 mg Tablet 50 mg PO QDL RF: 0 Slow-Mag 71.5 mg Tablet,Delayed Release (Dr/Ec) 143 mg PO QDL RF: 0 vitamin A 8,000 unit Capsule 8,000 unit PO QDL RF: 0 vitamin B complex Tablet 1 tab PO QDL RF: 0 cholecalciferol (vitamin D3) [Vitamin D3] 1,000 unit Capsule 1,000 unit PO QDL RF: 0 Probiotic 3 billion cell Capsule 0 mmu cells PO QDL RF: 0 promethazine 25 mg tablet 25 mg PO Q6H PRN (Reason: sedation) Qty: 12 RF: 0 cranberry 400 mg Capsule 400 mg PO BID RF: 0 terconazole 0.4 % cream 1 appl PV HS RF: 0 melatonin 5 mg Tablet 5 - 15 mg PO HS PRN (Reason: Sleep) RF: 0 spironolactone 100 mg tablet 50 mg PO QAM RF: 0 Tresiba FlexTouch U-100 100 unit/mL (3 mL) insulin pen 12 units subcut QAM RF: 0 levothyroxine [Euthyrox] 50 mcg tablet 50 mcg PO QAM RF: 0 Refresh Optive Advanced 0.5-1-0.5 % drops 2 drops OP TID PRN (Reason: Dry Eyes) RF: 0
[2019-10-31 22:21] LABS: Hematocrit (blood only) 29.6 % (37-47); Hemoglobin 10.7 g/dL (12.0-16.0); Mean Corpuscular Hemoglobin 38.2 pg (25-34); Mean Corpuscular Hgb Conc 36.1 g/dL (32-36); Mean Corpuscular Volume 105.7 fL (80-100); RDW Coefficient of Variation 13.7 % (11.5-14.5); RDW Standard Deviation 51.7 fL (36.4-46.3); White Blood Count 4.84 K/uL (4.8-10.8)
[2019-10-31 22:22] LABS: Mean Platelet Volume 10.1 fL (7.4-10.4); Platelet Count 86 K/uL (130-400)
[2019-10-31 22:35] LABS: INR 1.4 (0.9-1.1); Partial Thromboplastin Ratio 1.2; Partial Thromboplastin Time 34.2 Seconds (21.0-31.0); Prothrombin Time 14.1 Seconds (9.0-12.0)
[2019-10-31 22:38] LABS: Albumin Level 3.1 gm/dl (3.4-5.0); Aspartate Aminotransferase 54 U/L (15-37); BUN Creatinine Ratio 22.4 (10-20); Blood Urea Nitrogen 16 mg/dl (7-18); Calcium 8.1 mg/dl (8.5-10.1); Carbon Dioxide 19 mmol/L (21-32); Chloride 112 mmol/L (98-107); Creatinine Clr Calc Pharmacy 93.7 ml/min; Est GFR (African American) 115.2; Est GFR (Non-African American) 99.4; Glucose 176 mg/dl (70-99); Magnesium 1.7 mg/dl (1.8-2.4); Sodium 140 mmol/L (136-145)
[2019-10-31 22:38] LABS: Appearance Urine Clear (Clear); Bacteria Urine Automated Negative (Negative); Bilirubin Urine Negative (Negative); Blood Urine Negative (Negative); Color Urine Dark Yellow; Glucose Urine UA Negative (Negative); Ketones Urine Trace (Negative); Leukocyte Esterase Urine Trace (Negative); Nitrite Urine Negative (Negative); Protein Urine Trace (Negative); RBC Urine Automated 0-4 /hpf (0-4); Specific Gravity Urine 1.021 (1.000-1.030); Urobilinogen Urine Negative (Negative); pH Urine 6.5 (4.5-7.5)
[2019-10-31 22:41] LABS: Basophils # (auto) 0.02 K/uL (0-0.2); Basophils % (auto) 0.4 %; Eosinophils # (auto) 0.02 K/uL (0-0.5); Eosinophils % (auto) 0.4 %; Immature Granulocytes # (auto) 0.01 K/uL (0.00-0.02); Immature Granulocytes % (auto) 0.2 %; Lymphocytes # (auto) 0.32 K/uL (1.2-3.4); Lymphocytes % (auto) 6.6 %; Monocytes # (auto) 0.28 K/uL (0.11-0.59); Monocytes % (auto) 5.8 %; Neutrophils # (auto) 4.19 K/uL (1.4-6.5); Neutrophils % (auto) 86.6 %; Ovalocytes 1+
[2019-10-31 22:43] LABS: Alanine Aminotransferase 54 U/L (12-78); Alkaline Phosphatase 132 U/L (45-117); Bilirubin,Total 2.6 mg/dl (0.2-1); Total Protein 6.1 gm/dl (6.4-8.2); Troponin I < 0.015 ng/ml (0-0.045)
[2019-10-31] MEDS ORDERED: SODIUM CHLORIDE 0.9% 1000ML 1,000 ML IV ONE ×2 (23:24→23:27)
--- NOTE | 2019-11-01 00:17 | History & Physical Report ---
Date of Service November 01, 2019 Assessment & Plan (1) Weakness: 1. Weakness/Chills/Nausea -afebrile at present, sinus tachycardia with heart rate = 103, mildly tachypneic with respiratory rate = 24. All other laboratory parameters seem to be near patient's baseline with exception with mild elevation of T bili of 2.6. Patient denies exposure to COVID-19 or recent travel. Observation to medical floor with telemetry IV fluid and magnesium repletion Follow culture results 2. Hepatic encephalopathy: Patient with persistently elevated ammonia level. Ammonia = 54.9 today. Patient is awake, alert, following commands and answering questions appropriately -Continue Lactulose QID. Titrate 2-3 soft bowel movements per day -Continue rifaximin 550 mg p.o. twice daily 3. Cirrhosis: Patient with liver cirrhosis secondary to STEVE, portal hypertension. Patient follows with gastroenterology, last seen by Dr. Toledo on 04/20/19. HCV screening has been completed and is negative. AFP on 03/09/2019 = 2.6. INR = 1.4 -Repeat LFTs in AM -Continue Lactulose 1-3 times daily, titrate to 3-4 soft bowel movements per day. -Continue Rifaximin 550 mg p.o. twice daily -Continue zinc supplementation 50 mg daily -Continue Aldactone for lower extremity edema -Low sodium diet as tolerated -Avoid hepatotoxic agents 4. Seizure disorder: Patient with history of seizure. She follows with neurology, last seen on 04/02/19. EEG completed in May 2018 revealed a generalized spike and slow wave abnormality consistent with an underlying generalized seizure disorder. Patient had an MRI brain completed in October 2017 which was unremarkable. Patient failed VNS placement in the past, device was explanted. Presently on topiramate, Trileptal and Keppra. She was recently seen in the ER on 05/17/19 with report of seizures x 4 at home with a 5th seizure witnessed in triage - shaking her head and upper extremities. After consultation with Neurology her Oxcarbazepine was increased to 600mg po BID. -Continue topiramate 100 mg p.o. twice daily -Continue Trileptal 300 mg p.o. every morning and 600 mg p.o. nightly -Continue Keppra 1500 mg p.o. twice daily 5. Diabetes: Patient with type 2 diabetes, well controlled, long-term use of insulin. Blood sugar today =176. Last hemoglobin A1c=4.6 on 10/20/19. Patient follows with Endocrinology/Diabetes education. -Continue Tresiba 12 units subcu every morning - ISS, goal blood sugar while inpatient 100 - 140 -Recommend annual A1c monitoring -Followup with nursing educator outpatient as instructed 6. Chronic gait disorder - patient mostly in wheelchair at home. -Fall precautions -Wheelchair and walker as needed -Assistance as needed with transfers and ambulation -Patient has home health nurse 7. Hypothyroidism - TSH=1.56 -Continue Synthroid 8. GERD- Chronic. Stable. -Continue Omeprazole 40mg po daily 9. Depression - Chronic. Stable. Patient presently not on any medications. She has been evaluated by Psychiatry in the past. 10. Asthma - history of severe persistent asthma. She has seen Pulmonary as well as Allergy/Immunology in the past. Spirometry performed on 04/23/19 with FVC=1.37, 38% predicted. FEV1=1.18, 40% predicted and FEV1/FVC=86%. Suggestive of restrictive process vs obstruction with air trapping. Study limited. Formal PFTs ordered, not yet completed. Presently CTA, adequate oxygenation on room air, no concern for exacerbation at this time. -Continue home medications 11. Migraine: Patient with episodic migraines. Well-controlled. -Continue topiramate -Patient has used Maxalt in the past with success for migraine relief if needed 12. Tremor: Patient with coarse postural and action tremor. -Continue topiramate F/E/N -patient was administered 2 L of fluid in the ER, will replete magnesium with 2 g IV, consistent carbohydrate diet as tolerated Ppx - Low risk for DVT. Code - Full per discussion with patient Dispo -observation to medical floor Present on Admission?: Yes (2) Hypomagnesemia: Present on Admission?: Yes (3) Diabetes: Present on Admission?: Yes (4) Severe persistent asthma: Present on Admission?: Yes (5) Liver cirrhosis secondary to STEVE: Present on Admission?: Yes (6) Major depressive disorder with psychotic features: Present on Admission?: Yes (7) Peptic ulcer disease: Present on Admission?: Yes (8) Blanca's thyroiditis: Present on Admission?: Yes (9) Controlled type 2 diabetes mellitus, with long-term current use of insulin: Present on Admission?: Yes (10) GERD (gastroesophageal reflux disease): Present on Admission?: Yes (11) Seizure disorder: Present on Admission?: Yes History of Present Illness Chief Complaint: Weakness, fatigue Primary Care Provider: DO Marcelle Bell Arpit is a 53-year-old female with multiple medical problems presenting with acute onset of nausea, chills, dizziness, gait instability. She also mentions mild headache and sore throat. Symptoms began acutely this afternoon. She reports poor oral intake lately. She denies recent travel or sick contacts. No concern for COVID-19 exposure ER course: Normal saline Allergies Allergy/AdvReac Type Severity Reaction Status Date / Time metronidazole Allergy Severe SEIZURE Verified 10/31/19 22:12 tramadol Allergy Severe SEIZURES Verified 10/31/19 22:12 amoxicillin Allergy Intermediate SEE COMMENT Verified 10/31/19 22:12 baclofen Allergy Intermediate RASH Verified 10/31/19 22:12 butalbital Allergy Intermediate HIVES Verified 10/31/19 22:12 cat dander Allergy Intermediate Hives Verified 10/31/19 22:12 ceftriaxone [From Rocephin] Allergy Intermediate Hives Verified 10/31/19 22:12 clavulanic acid Allergy Intermediate Diarrhea Verified 10/31/19 22:12 dicyclomine Allergy Intermediate HIVES Verified 10/31/19 22:12 dog dander Allergy Intermediate Hives Verified 10/31/19 22:12 horse dander Allergy Intermediate Hives Verified 10/31/19 22:12 pollen extracts Allergy Intermediate Hives Verified 10/31/19 22:12 Tetracyclines Allergy Intermediate DOXYCYCLINE Verified 10/31/19 22:12 -HIVES adhesive Allergy Mild RASH, Verified 10/31/19 22:12 DUODERM=RED,ITCHY sulindac Allergy Mild ALLERGY Verified 10/31/19 22:12 LISTED "CLONDORAL"--HIVES Cephalosporins AdvReac Severe TURNS Verified 10/31/19 22:12 STOOL VERY DARK levofloxacin [From Levaquin] AdvReac Severe Vomiting Verified 10/31/19 22:12 metoclopramide AdvReac Severe SEIZURES Verified 10/31/19 22:12 paroxetine [From Paxil] AdvReac Severe Vomiting Verified 10/31/19 22:12 cefdinir AdvReac Intermediate Diarrhea Verified 10/31/19 22:12 celecoxib AdvReac Mild HIVES Verified 10/31/19 22:12 Home Medications Home Medications Medication Instructions Recorded Confirmed Type multivitamin [Multiple Vitamins] 1 tab PO QDL 12/26/17 10/31/19 History Probiotic 0 mmu cells PO QDL 09/20/18 10/31/19 History cholecalciferol (vitamin D3) 1,000 unit PO QDL 09/20/18 10/31/19 History [Vitamin D3] vitamin A 8,000 unit PO QDL 09/20/18 10/31/19 History vitamin B complex 1 tab PO QDL 09/20/18 10/31/19 History promethazine 25 mg PO Q6H PRN #12 tab 10/27/18 10/31/19 Rx cranberry 400 mg PO BID 02/04/19 10/31/19 History zinc 50 mg PO QDL 02/09/19 10/31/19 History epinephrine 0.3 mg/0.3 mL 0.3 mg IM Q10M PRN 04/02/19 10/31/19 History injection, auto-injector lecithin 1,200 mg capsule 1,200 mg PO QDL 04/29/19 10/31/19 History loratadine 10 mg tablet 10 mg PO QAM 04/29/19 10/31/19 History Slow-Mag 143 mg PO QDL 06/10/19 10/31/19 History sodium chloride 0.65 % nasal spray 1 sprays INTNAS BID PRN #15 ml 07/26/19 10/31/19 Rx aerosol ipratropium 0.5 mg-albuterol 3 mg 3 ml INH QID PRN #90 ml 07/30/19 10/31/19 Rx (2.5 mg base)/3 mL nebulization soln omeprazole 40 mg capsule,delayed 40 mg PO QAM #90 cap 08/02/19 10/31/19 Rx release terconazole 1 appl PV HS 08/13/19 10/31/19 History rifaximin 550 mg tablet 550 mg PO BID #60 tab 09/06/19 10/31/19 Rx levetiracetam 750 mg tablet 1,500 mg PO BID 30 Days #120 tab 09/09/19 10/31/19 Rx topiramate 100 mg tablet 100 mg PO BID #60 tab 09/09/19 10/31/19 Rx insulin aspart U-100 100 unit/mL See Rx Instructions SQ .COMPLEX 09/24/19 10/31/19 Rx (3 mL) subcutaneous pen #15 ml oxcarbazepine 300 mg tablet 300 mg PO .COMPLEX #90 tab 09/24/19 10/31/19 Rx rizatriptan 10 mg disintegrating 10 mg PO .COMPLEX PRN 30 Days #9 09/24/19 10/31/19 Rx tablet tab Tresiba FlexTouch U-100 12 units SUBCUT QAM 10/10/19 10/31/19 History melatonin 5 - 15 mg PO HS PRN 10/10/19 10/31/19 History spironolactone 50 mg PO QAM 10/10/19 10/31/19 History levothyroxine [Euthyrox] 50 mcg PO QAM 10/19/19 10/31/19 History lactulose 20 gram/30 mL oral 30 - 45 ml PO QAM ml 10/27/19 10/31/19 History solution Refresh Optive Advanced 2 drops OP TID PRN 10/31/19 10/31/19 History Past Med/Surg History Medical History Allergic rhinitis Asthma STABLE Blepharitis of both eyes (Inactive) Depression Dysphagia GERD (gastroesophageal reflux disease) CONTROLLED Hemorrhoids (Inactive) Hepatic encephalopathy HX; ON LACTULOSE/XIFAXAN Hx of migraines Hyperammonemia (Acute) Hypocalcemia (Inactive) Hypothyroidism Myoclonic seizure "FREQUENT MYOCLONIC SEIZURES" FOLLOWS WITH DR. YANG Never a smoker (Inactive) Nonalcoholic fatty liver disease (Inactive) Pancytopenia (Acute) CHRONIC Parkinsonism (Acute) Pneumonia (Inactive) Polydipsia (Resolved) Seizure disorder (05/26/11) + PSEUDOSEIZURES Spleen enlargement (Acute) Surgical History History of ankle surgery B/L History of appendectomy History of cholecystectomy History of colonoscopy History of esophagogastroduodenoscopy (EGD) History of kyphoplasty History of surgery on arm LEFT History of tooth extraction Hx of carpal tunnel repair B/L Hx of cataract extraction B/L S/P laminectomy lumbar spine S/P nasal surgery nasal bone fracture repair S/P TIFFANIE-BSO (1997) Family History Other Adopted No pertinent family history Social History Smoking Status: Never smoker Tobacco Type: Cigarettes Second Hand Exposure: No; Hx Alcohol Use: No Hx Substance Use: No Preferred Language: Hebrew Communication Ability: Effective Visual Impairment: No Limitations Building Rental Superintendent Required: No Beliefs That Will Affect Care: None marital status: Current Living Situation: Spouse Current Living Situation Comment: Lives with in apartment current occupational status: unemployed and disabled How many Children do You have: 0 Feels Safe at Home: Yes Seatbelt Use: always Review of Systems Review of Systems: All systems reviewed & are unremarkable except as noted in HPI & below Physical Exam Physical Exam: General: patient resting comfortably, NAD, non-toxic in appearance, AA&O x 4 Skin: warm, dry, intact, no rashes or lesions HEENT: NC/AT, PERRL, EOMI, anicteric sclera, conjunctiva without injection, external ear normal to inspection and nontender, nares patent, dry mucus membranes, dentition intact, no oropharyngeal lesions, neck supple, trachea midline, no LAD, no thyromegaly, no JVD Heart: +S1/S2, regular, tachycardic, no m/r/g Lungs: equal air entry bilaterally, no rales/rhonchi/wheezes Abd: +BS, soft, NT/ND, no masses/organomegaly/ascites Ext: warm, 2+ pulses in UE/LE bilaterally, no clubbing/cyanosis, 1+ edema bilateral lower extremities Neuro: nonfocal, patient AA&O x 4, speech intact, no facial droop, moving all extremities on command with equal strength 5/5 Results & Data Results & Data ([facility]) Vital Signs (Past 12 Hours) Vital Signs Temp Pulse Resp BP Pulse Ox 10/31/19 22:30 103 H 24 124/69 98 10/31/19 22:09 98 10/31/19 22:00 105 H 24 131/68 98 10/31/19 21:25 37.8 C H 105 H 18 140/84 100 Laboratory Results Lab Results 10/31/19 10/31/19 10/31/19 Range/Units 22:05 22:05 22:05 WBC 4.84 (4.8-10.8) K/uL RBC 2.80 L (4.2-5.4) M/uL Hgb 10.7 L (12.0-16.0) g/dL Hct 29.6 L (37-47) % MCV 105.7 H (80-100) fL MCH 38.2 H (25-34) pg MCHC 36.1 H (32-36) g/dL RDW Std Deviation 51.7 H (36.4-46.3) fL RDW Coeff of Irina 13.7 (11.5-14.5) % Plt Count 86 L (130-400) K/uL MPV 10.1 (7.4-10.4) fL Immature Gran % (Auto) 0.2 % Neut % (Auto) 86.6 % Lymph % (Auto) 6.6 % Crane % (Auto) 5.8 % Eos % (Auto) 0.4 % Baso % (Auto) 0.4 % Neut # (Auto) 4.19 (1.4-6.5) K/uL Lymph # (Auto) 0.32 L (1.2-3.4) K/uL Crane # (Auto) 0.28 (0.11-0.59) K/uL Eos # (Auto) 0.02 (0-0.5) K/uL Baso # (Auto) 0.02 (0-0.2) K/uL Immature Gran # (Auto) 0.01 (0.00-0.02) K/uL Ovalocytes 1+ PT 14.1 H (9.0-12.0) Seconds INR 1.4 H (0.9-1.1) APTT 34.2 H (21.0-31.0) Seconds PTT Ratio 1.2 Sodium 140 (136-145) mmol/L Potassium 4.0 (3.5-5.1) mmol/L Chloride 112 H (98-107) mmol/L Carbon Dioxide 19 L (21-32) mmol/L Anion Gap 8.0 (3-11) BUN 16 (7-18) mg/dl Creatinine 0.69 (0.6-1.2) mg/dl Est Cr Clr Drug Dosing 93.7 ml/min Est GFR ( Amer) 115.2 Est GFR (Non-Af Amer) 99.4 BUN/Creatinine Ratio 22.4 H (10-20) Glucose 176 H (70-99) mg/dl Lactate (0.4-2.0) mmol/L Calcium 8.1 L (8.5-10.1) mg/dl Magnesium 1.7 L (1.8-2.4) mg/dl Total Bilirubin 2.6 H (0.2-1) mg/dl AST 54 H (15-37) U/L ALT 54 (12-78) U/L Alkaline Phosphatase 132 H (45-117) U/L Ammonia (11-32) umol/L Troponin I < 0.015 (0-0.045) ng/ml Total Protein 6.1 L (6.4-8.2) gm/dl Albumin 3.1 L (3.4-5.0) gm/dl Globulin 3.0 (2.5-4.0) gm/dl Albumin/Globulin Ratio 1.0 (0.9-2) Urine Color Urine Appearance (Clear) Urine pH (4.5-7.5) Ur Specific [place] (1.000-1.030) Urine Protein (Negative) Urine Glucose (UA) (Negative) Urine Ketones (Negative) Urine Blood (Negative) Urine Nitrite (Negative) Urine Bilirubin (Negative) Urine Urobilinogen (Negative) Ur Leukocyte Esterase (Negative) Urine WBC (Auto) (0-5) /hpf Urine RBC (Auto) (0-4) /hpf U Hyaline Cast (Auto) (0-5) /lpf U Epithel Cells (Auto) (0-5) /lpf Urine Bacteria (Auto) (Negative) 10/31/19 10/31/19 10/31/19 Range/Units 22:05 22:05 22:25 WBC (4.8-10.8) K/uL RBC (4.2-5.4) M/uL Hgb (12.0-16.0) g/dL Hct (37-47) % MCV (80-100) fL MCH (25-34) pg MCHC (32-36) g/dL RDW Std Deviation (36.4-46.3) fL RDW Coeff of Irina (11.5-14.5) % Plt Count (130-400) K/uL MPV (7.4-10.4) fL Immature Gran % (Auto) % Neut % (Auto) % Lymph % (Auto) % Crane % (Auto) % Eos % (Auto) % Baso % (Auto) % Neut # (Auto) (1.4-6.5) K/uL Lymph # (Auto) (1.2-3.4) K/uL Crane # (Auto) (0.11-0.59) K/uL Eos # (Auto) (0-0.5) K/uL Baso # (Auto) (0-0.2) K/uL Immature Gran # (Auto) (0.00-0.02) K/uL Ovalocytes PT (9.0-12.0) Seconds INR (0.9-1.1) APTT (21.0-31.0) Seconds PTT Ratio Sodium (136-145) mmol/L Potassium (3.5-5.1) mmol/L Chloride (98-107) mmol/L Carbon Dioxide (21-32) mmol/L Anion Gap (3-11) BUN (7-18) mg/dl Creatinine (0.6-1.2) mg/dl Est Cr Clr Drug Dosing ml/min Est GFR ( Amer) Est GFR (Non-Af Amer) BUN/Creatinine Ratio (10-20) Glucose (70-99) mg/dl Lactate 1.9 (0.4-2.0) mmol/L Calcium (8.5-10.1) mg/dl Magnesium (1.8-2.4) mg/dl Total Bilirubin (0.2-1) mg/dl AST (15-37) U/L ALT (12-78) U/L Alkaline Phosphatase (45-117) U/L Ammonia 54.9 H (11-32) umol/L Troponin I (0-0.045) ng/ml Total Protein (6.4-8.2) gm/dl Albumin (3.4-5.0) gm/dl Globulin (2.5-4.0) gm/dl Albumin/Globulin Ratio (0.9-2) Urine Color Dark Yellow Urine Appearance Clear (Clear) Urine pH 6.5 (4.5-7.5) Ur Specific [place] 1.021 (1.000-1.030) Urine Protein Trace H (Negative) Urine Glucose (UA) Negative (Negative) Urine Ketones Trace H (Negative) Urine Blood Negative (Negative) Urine Nitrite Negative (Negative) Urine Bilirubin Negative (Negative) Urine Urobilinogen Negative (Negative) Ur Leukocyte Esterase Trace H (Negative) Urine WBC (Auto) 1-5 (0-5) /hpf Urine RBC (Auto) 0-4 (0-4) /hpf U Hyaline Cast (Auto) 1-5 (0-5) /lpf U Epithel Cells (Auto) 10-20 H (0-5) /lpf Urine Bacteria (Auto) Negative (Negative) Diagnostic Findings Chest x-rayper my interpretation, trachea midline, chest port in place, fixation device of left shoulder, poor inspiratory effort, no acute process PG Care Time/CCT Total # of Minutes Spent Total Time Spent with Patient: Total time spent is greater than 50% in coordination of care (as documented) at patient's floor/unit and/or counseling patient: Coding Level of Care Code 13960 OBS Care - Level 3 Diagnoses Weakness R53.1 Hypomagnesemia E83.42 Diabetes E11.69; Z79.4 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 complication status: with other specified complication 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 penitentiary insulin use: with penitentiary use 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 type: type 2 Severe persistent asthma J45.50 Asthma complication type: uncomplicated Liver cirrhosis secondary to STEVE K75.81; K74.60 Major depressive disorder with psychotic features F32.3 Peptic ulcer disease K27.9 Blanca's thyroiditis E06.3 Controlled type 2 diabetes mellitus, with long-term current use of insulin E11.69; Z79.4 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 complication status: with other specified complication GERD (gastroesophageal reflux disease) K21.9 Esophagitis presence: esophagitis presence not specified Seizure disorder G40.909 (1) Diabetes 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 complication status: with other specified complication 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 penitentiary insulin use: with intermediate accountant use 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 type: type 2 Qualified Code(s): E11.69 - Type 2 diabetes mellitus with other specified complication; Z79.4 - shelter (current) use of insulin (2) Severe persistent asthma Asthma complication type: uncomplicated Qualified Code(s): J45.50 - Severe persistent asthma, uncomplicated (3) Controlled type 2 diabetes mellitus, with long-term current use of insulin 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 complication status: with other specified complication Qualified Code(s): E11.69 - Type 2 diabetes mellitus with other specified complication; Z79.4 - shelter (current) use of insulin (4) GERD (gastroesophageal reflux disease) Esophagitis presence: esophagitis presence not specified Qualified Code(s): K21.9 - Gastro-esophageal reflux disease without esophagitis
[2019-11-01] MEDS ORDERED: SODIUM CHLORIDE 0.65% NA SOLN 45 ML (OCEAN) PRN (01:52)
[2019-11-01] MEDS ORDERED: CARBOHYDRATES FOR HYPOGLYCEMIA PO PRN (01:52)
[2019-11-01] MEDS ORDERED: GLUCAGON FOR INJ 1 MG VIAL SQ PRN (01:52)
[2019-11-01] MEDS ORDERED: GLUCOSE 40% GEL 15 GM TUBE PO PRN (01:52)
[2019-11-01] MEDS ORDERED: GLUCOSE 10 TABS/TUBE PO PRN (01:52)
[2019-11-01] MEDS ORDERED: DEXTROSE 50% 50 ML SYRINGE IV PRN (01:52)
[2019-11-01] MEDS ORDERED: MELATONIN 3 MG TAB PO PRN (02:10)
[2019-11-01] MEDS ORDERED: ARTIFICIAL TEARS OP PRN (02:18)
[2019-11-01] MEDS: ACETAMINOPHEN 325 MG TAB PO PRN ×2 (02:29→20:43)
[2019-11-01] MEDS: INSULIN ASPART 100 UNITS/ML 3 ML PEN SC SCH ×5 (02:32→20:39)
[2019-11-01] MEDS: MAGNESIUM SULFATE / D5W 1 GM/100 ML BAG IV SCH ×2 (02:33→04:36)
[2019-11-01] MEDS: LEVOTHYROXINE SODIUM 50 MCG TABLET PO SCH (06:18)
--- NOTE | 2019-11-01 06:26 | XRay Report ---
XR chest 1V portable CLINICAL HISTORY: SEPSIS dyspnea COMPARISON STUDY: 10/19/2019 FINDINGS: Central catheter remains in superior vena cava. Heart is top normal to size. Lungs are cons idered generally clear. Slight left upper lobe interstitial prominence. IMPRESSION: Slight left upper lobe interstitial prominence. Otherwise negative study. ACT 112: Negative or not required by law. The above report was generated using voice recognition software. It may contain grammatical, syntax or spelling errors. Electronically signed by: Kenroy Yates M.D. 11/01/2019 6:25 AM
[2019-11-01] MEDS ORDERED: HEPARIN 100 UNIT/ML 5ML FLUSH ONE (06:51)
[2019-11-01] MEDS ORDERED: Nursing to Pharmacy Communication SCH ×2 (08:15→12:00)
[2019-11-01] MEDS ORDERED: SPIRONOLACTONE 100 MG TAB PO ONE (08:15)
[2019-11-01] MEDS: LORATADINE 10 MG TAB PO SCH (08:59)
[2019-11-01] MEDS: LACTULOSE SYRUP 30 GM/45 ML UDP PO SCH (08:59)
[2019-11-01] MEDS ORDERED: INSULIN GLARGINE SOLOSTAR 100 UNITS/ML 3 ML PEN SC SCH (09:00)
[2019-11-01] MEDS ORDERED: NON-FORMULARY MEDICATION (Cranberry 400 MG) PO SCH (09:00)
[2019-11-01] MEDS: PANTOprazole 40 MG TAB PO SCH (09:00)
[2019-11-01] MEDS: levETIRAcetam 500 MG TAB PO SCH ×2 (09:00→20:38)
[2019-11-01] MEDS: RIFAXIMIN 550 MG TABLET PO SCH ×2 (09:01→20:39)
[2019-11-01] MEDS: OXcarbazepine 150 MG TABLET PO SCH ×2 (09:01→20:38)
[2019-11-01] MEDS: TOPIRAMATE 100 MG TAB PO SCH ×2 (09:01→20:39)
[2019-11-01] MEDS: MAGNESIUM CHLORIDE 64MG DELAYED REL TAB PO SCH (11:28)
[2019-11-01] MEDS: MULTIVITAMIN TAB PO SCH (11:28)
[2019-11-01] MEDS: CHOLECALCIFEROL 1,000 UNITS 25 MCG TAB PO SCH (11:29)
[2019-11-01] MEDS: VITAMIN B COMPLEX TAB PO SCH (11:29)
[2019-11-01] MEDS: ZINC SULFATE 220 MG CAPSULE PO SCH (11:29)
[2019-11-01] MEDS ORDERED: NON-FORMULARY MEDICATION (Lecithin 1,200 MG) PO SCH (11:30)
[2019-11-01] MEDS ORDERED: NON-FORMULARY MEDICATION (Vitamin A 8,000 UNITS) PO SCH (11:30)
[2019-11-01] MEDS: INSULIN DEGLUDEC 100 UNITS/ML SQ SCH (12:45)
--- NOTE | 2019-11-01 13:11 | Hospitalist Progress Note ---
Date of Service November 01, 2019 Assessment & Plan (1) Weakness: 1. Weakness/Chills/Nausea -afebrile at present, sinus tachycardia with heart rate = 103, mildly tachypneic with respiratory rate = 24. All other laboratory parameters seem to be near patient's baseline with exception with mild elevation of T bili of 2.6. Patient denies exposure to COVID-19 or recent travel. Stable today Follow culture results -> If negative after 24 hours, can likely discharge home. 2. Hepatic encephalopathy: Patient with persistently elevated ammonia level. Ammonia = 54.9 today. Patient is awake, alert, following commands and answering questions appropriately - Continue Lactulose QID. Titrate 2-3 soft bowel movements per day - Continue rifaximin 550 mg p.o. twice daily 3. Cirrhosis: Patient with liver cirrhosis secondary to STEVE, portal hypertension. Patient follows with gastroenterology, last seen by Dr. Toledo on 04/20/19. HCV screening has been completed and is negative. AFP on 03/09/2019 = 2.6. INR = 1.4 -Repeat LFTs in AM -Continue Lactulose 1-3 times daily, titrate to 3-4 soft bowel movements per day. -Continue Rifaximin 550 mg p.o. twice daily -Continue zinc supplementation 50 mg daily -Continue Aldactone for lower extremity edema -Low sodium diet as tolerated -Avoid hepatotoxic agents 4. Seizure disorder: Patient with history of seizure. She follows with neurology, last seen on 04/02/19. EEG completed in May 2018 revealed a generalized spike and slow wave abnormality consistent with an underlying generalized seizure disorder. Patient had an MRI brain completed in October 2017 which was unremarkable. Patient failed VNS placement in the past, device was ex planted. Presently on topiramate, Trileptal and Keppra. She was recently seen in the ER on 05/17/19 with report of seizures x 4 at home with a 5th seizure witnessed in triage - shaking her head and upper extremities. After consultation with Neurology her Oxcarbazepine was increased to 600mg po BID. -Continue topiramate 100 mg p.o. twice daily -Continue Trileptal 300 mg p.o. every morning and 600 mg p.o. nightly -Continue Keppra 1500 mg p.o. twice daily 5. Diabetes: Patient with type 2 diabetes, well controlled, long-term use of insulin. Blood sugar today =176. Last hemoglobin A1c=4.6 on 10/20/19. Patient follows with Endocrinology/Diabetes education. -Continue Tresiba 12 units subcu every morning - ISS, goal blood sugar while inpatient 100 - 140 -Recommend annual A1c monitoring -Followup with art educator outpatient as instructed 6. Chronic gait disorder - patient mostly in wheelchair at home. -Fall precautions -Wheelchair and walker as needed -Assistance as needed with transfers and ambulation -Patient has home health nurse 7. Hypothyroidism - TSH=1.56 -Continue Synthroid 8. GERD- Chronic. Stable. -Continue Omeprazole 40mg po daily 9. Depression - Chronic. Stable. Patient presently not on any medications. She has been evaluated by Psychiatry in the past. 10. Asthma - history of severe persistent asthma. She has seen Pulmonary as well as Allergy/Immunology in the past. Spirometry performed on 04/23/19 with FVC=1.37, 38% predicted. FEV1=1.18, 40% predicted and FEV1/FVC=86%. Suggestive of restrictive process vs obstruction with air trapping. Study limited. Formal PFTs ordered, not yet completed. Presently CTA, adequate oxygenation on room air, no concern for exacerbation at this time. -Continue home medications 11. Migraine: Patient with episodic migraines. Well-controlled. -Continue topiramate -Patient has used Maxalt in the past with success for migraine relief if needed 12. Tremor: Patient with coarse postural and action tremor. -Continue topiramate F/E/N -patient was administered 2 L of fluid in the ER, will replete magnesium with 2 g IV, consistent carbohydrate diet as tolerated Ppx - Low risk for DVT. Code - Full per discussion with patient Dispo -observation to medical floor (2) Hypomagnesemia: (3) Diabetes: (4) Severe persistent asthma: (5) Liver cirrhosis secondary to STEVE: (6) Major depressive disorder with psychotic features: (7) Peptic ulcer disease: (8) Blanca's thyroiditis: (9) Controlled type 2 diabetes mellitus, with long-term current use of insulin: (10) GERD (gastroesophageal reflux disease): (11) Seizure disorder: Admission and Anticipated Discharge Date Admission Date: November 01, 2019 Subjective Still feels weak. Reports shortness of breath and cough. No chest pain. Per patient's , reported loss of taste, smell, and hearing, though no report of this today. Physical Exam Constitutional: WD/WN, vitals as above Eyes: EOM intact bilaterally; no conjunctival abnormality ENMT: external ear and nose normal, oropharynx normal Neck: trachea midline, no thyromegaly normal visual inspection Respiratory: normal respiratory effort, lungs clear to auscultation no respiratory distress Cardiovascular: RRR, no murmur, no edema Gastrointestinal (Abdomen): Inspection/Auscultation: abdomen normal to inspection; abdomen not distended Musculoskeletal: no cyanosis or clubbing, extremities motor strength 5/5 Skin: no rashes, warm and dry Neurologic: moves all extremities and awake Psychiatric: Orientation: alert, oriented to person and cooperative Results & Data Results & Data ([facility]) Vital Signs (Past 12 Hours) Vital Signs Temp Pulse Pulse Resp BP Pulse Ox 11/01/19 11:27 37.3 C 82 16 125/74 99 11/01/19 07:39 86 11/01/19 07:09 36.8 C 107 H 16 116/71 95 11/01/19 04:48 86 11/01/19 02:05 38.3 C H 98 H 20 129/90 100 PG Care Time/CCT Total # of Minutes Spent Total Time Spent with Patient: Total time spent is greater than 50% in coordination of care (as documented) at patient's floor/unit and/or counseling patient: Coding Level of Care Code 43938 Subseq Hosp Care Lvl 2 Diagnoses Weakness R53.1 Hypomagnesemia E83.42 Diabetes E11.69; Z79.4 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 complication status: with other specified complication 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 long term care administrator insulin use: with senior care use 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 type: type 2 Severe persistent asthma J45.50 Asthma complication type: uncomplicated Liver cirrhosis secondary to STEVE K75.81; K74.60 Major depressive disorder with psychotic features F32.3 Peptic ulcer disease K27.9 Blanca's thyroiditis E06.3 Controlled type 2 diabetes mellitus, with long-term current use of insulin E11.69; Z79.4 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 complication status: with other specified complication GERD (gastroesophageal reflux disease) K21.9 Esophagitis presence: esophagitis presence not specified Seizure disorder G40.909 (1) Diabetes 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 complication status: with other specified complication 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 long term care administrator insulin use: with senior care use 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 type: type 2 Qualified Code(s): E11.69 - Type 2 diabetes mellitus with other specified complication; Z79.4 - meterman (current) use of insulin (2) Severe persistent asthma Asthma complication type: uncomplicated Qualified Code(s): J45.50 - Severe persistent asthma, uncomplicated (3) Controlled type 2 diabetes mellitus, with long-term current use of insulin 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 complication status: with other specified complication Qualified Code(s): E11.69 - Type 2 diabetes mellitus with other specified complication; Z79.4 - meterman (current) use of insulin (4) GERD (gastroesophageal reflux disease) Esophagitis presence: esophagitis presence not specified Qualified Code(s): K21.9 - Gastro-esophageal reflux disease without esophagitis
--- NOTE | 2019-11-01 17:48 | Electrocardiogram Report ---
Test Reason : Blood Pressure : / mmHG Vent. Rate : 103 BPM Atrial Rate : 103 BPM P-R Int : 166 ms QRS Dur : 088 ms QT Int : 360 ms P-R-T Axes : 036 -09 026 degrees QTc Int : 471 ms Sinus tachycardia Poor R wave progression, consider anterior IN vs. lead placement vs. LVH Otherwise normal ECG When compared with ECG of 20-OCT-2019 06:46, Vent. rate has increased BY 38 BPM Confirmed by Kevin Caldera ([id number]) on 11/01/2019 5:48:02 PM Referred By: REFERRED SELF Confirmed By:Marbin Caldera
[2019-11-01] MEDS ORDERED: TERCONAZOLE 0.4% CR 45 GM TUBE PV SCH (21:00)
[2019-11-01] MEDS: ALBUT/IPRATROP 3MG/0.5MG NEB 3 ML VIAL INH PRN (22:17)
[2019-11-02] MEDS: HEPARIN 100 UNIT/ML 5ML FLUSH FLUSH PRN ×3 (05:31→23:44)
[2019-11-02] MEDS: ALBUT/IPRATROP 3MG/0.5MG NEB 3 ML VIAL INH PRN ×2 (05:34→22:48)
[2019-11-02 06:11] LABS: Hematocrit (blood only) 20.5 % (37-47); Hemoglobin 7.4 g/dL (12.0-16.0); Mean Corpuscular Hemoglobin 38.3 pg (25-34); Mean Corpuscular Hgb Conc 36.1 g/dL (32-36); Mean Corpuscular Volume 106.2 fL (80-100); Platelet Count 65 K/uL (130-400); RDW Coefficient of Variation 14.2 % (11.5-14.5); RDW Standard Deviation 53.9 fL (36.4-46.3); Red Blood Count 1.93 M/uL (4.2-5.4)
[2019-11-02] MEDS: LEVOTHYROXINE SODIUM 50 MCG TABLET PO SCH (06:11)
[2019-11-02 06:27] LABS: Albumin Level 2.4 gm/dl (3.4-5.0); BUN Creatinine Ratio 22.7 (10-20); Calcium 6.9 mg/dl (8.5-10.1); Creatinine Clr Calc Pharmacy 155.2 ml/min; Est GFR (African American) 130.7; Est GFR (Non-African American) 112.8; Potassium 3.8 mmol/L (3.5-5.1)
[2019-11-02 06:34] LABS: Bilirubin Direct 0.8 mg/dl (0-0.2); Bilirubin,Total 2.2 mg/dl (0.2-1); Total Protein 4.7 gm/dl (6.4-8.2)
[2019-11-02 06:38] LABS: Basophils # (auto) 0.02 K/uL (0-0.2); Basophils % (auto) 0.6 %; Eosinophils # (auto) 0.14 K/uL (0-0.5); Eosinophils % (auto) 4.1 %; Lymphocytes # (auto) 0.91 K/uL (1.2-3.4); Lymphocytes % (auto) 26.8 %; Monocytes # (auto) 0.66 K/uL (0.11-0.59); Monocytes % (auto) 19.4 %; Neutrophils # (auto) 1.67 K/uL (1.4-6.5); Neutrophils % (auto) 49.1 %; Ovalocytes 1+
[2019-11-02] MEDS: levETIRAcetam 500 MG TAB PO SCH ×2 (07:51→20:39)
[2019-11-02] MEDS: PANTOprazole 40 MG TAB PO SCH (07:51)
[2019-11-02] MEDS: LACTULOSE SYRUP 30 GM/45 ML UDP PO SCH (07:51)
[2019-11-02] MEDS: SPIRONOLACTONE 25 MG TAB PO SCH (07:51)
[2019-11-02] MEDS: LORATADINE 10 MG TAB PO SCH (07:51)
[2019-11-02] MEDS: TOPIRAMATE 100 MG TAB PO SCH ×2 (07:51→20:40)
[2019-11-02] MEDS: OXcarbazepine 150 MG TABLET PO SCH ×2 (07:52→20:38)
[2019-11-02] MEDS: RIFAXIMIN 550 MG TABLET PO SCH ×2 (07:52→20:39)
[2019-11-02 08:23] LABS: Hematocrit (blood only) 21.5 % (37-47); Hemoglobin 7.9 g/dL (12.0-16.0)
[2019-11-02] MEDS: INSULIN ASPART 100 UNITS/ML 3 ML PEN SC SCH ×4 (08:30→21:16)
[2019-11-02] MEDS: INSULIN DEGLUDEC 100 UNITS/ML SQ SCH (08:31)
[2019-11-02 10:14] LABS: Ferritin 153.3 ng/ml (8-388)
[2019-11-02 10:26] LABS: Folate (Folic Acid) 15.13 ng/ml (>5.38)
[2019-11-02] MEDS: VITAMIN B COMPLEX TAB PO SCH (12:35)
[2019-11-02] MEDS: MULTIVITAMIN TAB PO SCH (12:35)
[2019-11-02] MEDS: MAGNESIUM CHLORIDE 64MG DELAYED REL TAB PO SCH (12:35)
[2019-11-02] MEDS: CHOLECALCIFEROL 1,000 UNITS 25 MCG TAB PO SCH (12:36)
[2019-11-02] MEDS: ZINC SULFATE 220 MG CAPSULE PO SCH (12:36)
[2019-11-02] MEDS: ACETAMINOPHEN 325 MG TAB PO PRN (14:52)
--- NOTE | 2019-11-02 17:14 | Hospitalist Progress Note ---
Date of Service November 02, 2019 Assessment & Plan (1) Weakness: Anemia: Hgb dropped from 10.7 to 7.4. Repeat was 7.9. No signs of bleeding. Brown BM, mild bruising. Patient declined further check today. Will repeat hgb in the AM. 1. Weakness/Chills/Nausea -afebrile at present, sinus tachycardia with heart rate = 103, mildly tachypneic with respiratory rate = 24. All other laboratory parameters seem to be near patient's baseline with exception with mild elevation of T bili of 2.6. Patient denies exposure to COVID-19 or recent travel. Stable today Follow culture results -> Negative after 24 hours. 2. Hepatic encephalopathy: Patient with persistently elevated ammonia level. Ammonia = 54.9 today. Patient is awake, alert, following commands and answering questions appropriately - Continue Lactulose QID. Titrate 2-3 soft bowel movements per day - Continue rifaximin 550 mg p.o. twice daily 3. Cirrhosis: Patient with liver cirrhosis secondary to STEVE, portal hypertension. Patient follows with gastroenterology, last seen by Dr. Toledo on 04/20/19. HCV screening has been completed and is negative. AFP on 03/09/2019 = 2.6. INR = 1.4 -Repeat LFTs in AM -Continue Lactulose 1-3 times daily, titrate to 3-4 soft bowel movements per day. -Continue Rifaximin 550 mg p.o. twice daily -Continue zinc supplementation 50 mg daily -Continue Aldactone for lower extremity edema -Low sodium diet as tolerated -Avoid hepatotoxic agents 4. Seizure disorder: Patient with history of seizure. She follows with neurology, last seen on 04/02/19. EEG completed in May 2018 revealed a generalized spike and slow wave abnormality consistent with an underlying generalized seizure disorder. Patient had an MRI brain completed in October 2017 which was unremarkable. Patient failed VNS placement in the past, device was explanted. Presently on topiramate, Trileptal and Keppra. She was recently seen in the ER on 05/17/19 with report of seizures x 4 at home with a 5th seizure witnessed in triage - shaking her head and upper extremities. After consultation with Neurology her Oxcarbazepine was increased to 600mg po BID. -Continue topiramate 100 mg p.o. twice daily -Continue Trileptal 300 mg p.o. every morning and 600 mg p.o. nightly -Continue Keppra 1500 mg p.o. twice daily 5. Diabetes: Patient with type 2 diabetes, well controlled, long-term use of insulin. Blood sugar today =176. Last hemoglobin A1c=4.6 on 10/20/19. Patient follows with Endocrinology/Diabetes education. -Continue Tresiba 12 units subcu every morning - ISS, goal blood sugar while inpatient 100 - 140 -Recommend annual A1c monitoring -Followup with cottage supervisor outpatient as instructed 6. Chronic gait disorder - patient mostly in wheelchair at home. -Fall precautions -Wheelchair and walker as needed -Assistance as needed with transfers and ambulation -Patient has home health nurse - PT/OT ordered in the hospital. 7. Hypothyroidism - TSH=1.56 -Continue Synthroid 8. GERD- Chronic. Stable. -Continue Omeprazole 40mg po daily 9. Depression - Chronic. Stable. Patient presently not on any medications. She has been evaluated by Psychiatry in the past. 10. Asthma - history of severe persistent asthma. She has seen Pulmonary as well as Allergy/Immunology in the past. Spirometry performed on 04/23/19 with FVC=1.37, 38% predicted. FEV1=1.18, 40% predicted and FEV1/FVC=86%. Suggestive of restrictive process vs obstruction with air trapping. Study limited. Formal PFTs ordered, not yet completed. Presently CTA, adequate oxygenation on room air, no concern for exacerbation at this time. -Continue home medications 11. Migraine: Patient with episodic migraines. Well-controlled. -Continue topiramate -Patient has used Maxalt in the past with success for migraine relief if needed 12. Tremor: Patient with coarse postural and action tremor. -Continue topiramate Ppx - Low risk for DVT. Code - Full per discussion with patient Dispo -observation to medical floor (2) Hypomagnesemia: (3) Diabetes: (4) Severe persistent asthma: (5) Liver cirrhosis secondary to STEVE: (6) Major depressive disorder with psychotic features: (7) Peptic ulcer disease: (8) Blanca's thyroiditis: (9) Controlled type 2 diabetes mellitus, with long-term current use of insulin: (10) GERD (gastroesophageal reflux disease): (11) Seizure disorder: Admission and Anticipated Discharge Date Admission Date: November 01, 2019 Subjective [place] well this morning, but feeling less well in the afternoon. Right hip pain is very severe. Reports no fevers/chills, chest pain, shortness of breath, abdominal pain, nausea, or vomiting. Physical Exam Constitutional: WD/WN, vitals as above Eyes: EOM intact bilaterally; no conjunctival abnormality ENMT: external ear and nose normal, oropharynx normal Neck: trachea midline, no thyromegaly normal visual inspection Respiratory: normal respiratory effort, lungs clear to auscultation no respiratory distress Cardiovascular: RRR, no murmur, no edema Gastrointestinal (Abdomen): Inspection/Auscultation: abdomen normal to inspection; abdomen not distended Musculoskeletal: no cyanosis or clubbing, extremities motor strength 5/5 Skin: no rashes, warm and dry Neurologic: moves all extremities and awake Psychiatric: Orientation: alert, oriented to person and cooperative Results & Data Results & Data ([facility]) Vital Signs (Past 12 Hours) Vital Signs Temp Pulse Pulse Resp BP Pulse Ox 11/02/19 15:50 91 H 11/02/19 15:28 37.1 C 102 H 18 129/78 100 11/02/19 15:14 36.7 C 93 H 18 135/69 100 11/02/19 12:45 37.0 C 91 H 16 122/72 100 11/02/19 07:37 83 11/02/19 07:20 36.8 C 88 16 110/67 98 11/02/19 06:26 36.7 C 88 16 101/65 99 11/02/19 05:36 69 16 98 PG Care Time/CCT Total # of Minutes Spent Total Time Spent with Patient: Total time spent is greater than 50% in coordination of care (as documented) at patient's floor/unit and/or counseling patient: Coding Level of Care Code 94321 Subseq Hosp Care Lvl 3 Diagnoses Weakness R53.1 Hypomagnesemia E83.42 Diabetes E11.69; Z79.4 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 complication status: with other specified complication 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 alf insulin use: with alf use 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 type: type 2 Severe persistent asthma J45.50 Asthma complication type: uncomplicated Liver cirrhosis secondary to STEVE K75.81; K74.60 Major depressive disorder with psychotic features F32.3 Peptic ulcer disease K27.9 Blanca's thyroiditis E06.3 Controlled type 2 diabetes mellitus, with long-term current use of insulin E11. 69; Z79.4 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 complication status: with other specified complication GERD (gastroesophageal reflux disease) K21.9 Esophagitis presence: esophagitis presence not specified Seizure disorder G40.909 (1) Diabetes 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 complication status: with other specified complication 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 termite exterminator helper insulin use: with termite exterminator helper use 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 type: type 2 Qualified Code(s): E11.69 - Type 2 diabetes mellitus with other specified complication; Z79.4 - custodial (current) use of insulin (2) Severe persistent asthma Asthma complication type: uncomplicated Qualified Code(s): J45.50 - Severe persistent asthma, uncomplicated (3) Controlled type 2 diabetes mellitus, with long-term current use of insulin 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 complication status: with other specified complication Qualified Code(s): E11.69 - Type 2 diabetes mellitus with other specified complication; Z79.4 - custodial (current) use of insulin (4) GERD (gastroesophageal reflux disease) Esophagitis presence: esophagitis presence not specified Qualified Code(s): K21.9 - Gastro-esophageal reflux disease without esophagitis
--- NOTE | 2019-11-02 18:36 | XRay Report ---
SINGLE VIEW PELVIS; 2 VIEWS RIGHT HIP CLINICAL HISTORY: Fall. Right hip pain. FINDINGS: 2 AP views of the pelvis with AP and frog-leg views of the right hip and femur are compared to study dated 04/10/2018. Correlation is made with right femoral radiographs dated 12/14/2017. The sk eletal structures are osteopenic. No acute fracture is seen involving the hips or bony pelvis. There is chronic posttraumatic deformity of the right proximal femur with intertrochanteric and intramedull benedict nails in place. There is a displaced spiral fracture of the distal femoral shaft around the dista l end of the intramedullary nail. There is apex dorsal angulation with overlying soft tissue edema. D egenerative joint space narrowing is seen in both hips, right greater than left. Sclerotic change is noted in the sacroiliac joints. Lumbosacral spondylosis is partially imaged. IMPRESSION: 1. There is no radiographic evidence of acute fracture involving the hips or bony pelvis. 2. There is an acute, distracted, and angulated spiral fracture of the distal femoral shaft around th e inferior end of the intramedullary nail. 3. 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 Electronically signed by: Aiden Randolph M.D. 11/02/2019 6:35 PM
[2019-11-02] MEDS: ACETAMINOPHEN 500 MG TAB PO PRN ×2 (18:51→20:40)
[2019-11-02] MEDS ORDERED: KETOROLAC 30 MG/ML VIAL IV ONE (23:23)
[2019-11-03] MEDS ORDERED: MoRPHine SULFATE 2 MG/ML CARP IV STA ×2 (00:26→02:26)
[2019-11-03] MEDS: HEPARIN 100 UNIT/ML 5ML FLUSH FLUSH PRN ×4 (01:02→06:35)
[2019-11-03] MEDS: LEVOTHYROXINE SODIUM 50 MCG TABLET PO SCH (05:47)
[2019-11-03] MEDS ORDERED: LORazepam 1 MG/2 ML VIAL IV STA (05:55)
[2019-11-03] MEDS: ALBUT/IPRATROP 3MG/0.5MG NEB 3 ML VIAL INH PRN ×2 (05:58→21:47)
[2019-11-03 06:20] LABS: Hemoglobin 7.1 g/dL (12.0-16.0); INR 1.3 (0.9-1.1); Mean Corpuscular Hemoglobin 37.8 pg (25-34); Mean Corpuscular Hgb Conc 37.4 g/dL (32-36); Mean Corpuscular Volume 101.1 fL (80-100); Platelet Count 71 K/uL (130-400); Prothrombin Time 13.5 Seconds (9.0-12.0); RDW Coefficient of Variation 13.7 % (11.5-14.5); RDW Standard Deviation 50.3 fL (36.4-46.3); Red Blood Count 1.88 M/uL (4.2-5.4); White Blood Count 3.41 K/uL (4.8-10.8)
[2019-11-03 06:36] LABS: Albumin Level 2.3 gm/dl (3.4-5.0); BUN Creatinine Ratio 18.5 (10-20); Calcium 6.8 mg/dl (8.5-10.1); Creatinine Clr Calc Pharmacy 144.2 ml/min; Est GFR (African American) 126.4; Est GFR (Non-African American) 109.1; Magnesium 1.4 mg/dl (1.8-2.4)
[2019-11-03 06:39] LABS: Bilirubin,Total 2.1 mg/dl (0.2-1); Globulin 2.4 gm/dl (2.5-4.0); Total Protein 4.7 gm/dl (6.4-8.2)
--- NOTE | 2019-11-03 07:11 | Hospitalist Progress Note ---
Date of Service November 03, 2019 Assessment & Plan (1) Weakness: Broken right femur: As a result of mechanical fall at home. Right hip x- rays on 11/01 show: "Acute, distracted, and angulated spiral fracture of the distal femoral shaft around the inferior end of the intramedullary nail." - NPO - Ortho consulted -> Surgery today. - Bed rest Anemia: Hgb dropped from 10.7 to 7.4. Repeat was 7.9. Brown BM, mild bruising. Patient declined further check today. Will repeat hgb in the AM. - Likely due to broken femur with possible bleeding near the fracture - Hgb of 7.1 on 11/02 - Will give 1 unit PRBCs today prior to surgery. 1. Weakness/Chills/Nausea -afebrile at present, sinus tachycardia with heart rate = 103, mildly tachypneic with respiratory rate = 24. All other laboratory parameters seem to be near patient's baseline with exception with mild elevation of T bili of 2.6. Patient denies exposure to COVID-19 or recent travel. Stable today Follow culture results -> Negative after 24 hours. 2. Hepatic encephalopathy: Patient with persistently elevated ammonia level. Ammonia = 54.9 today. Patient is awake, alert, following commands and answering questions appropriately - Continue Lactulose QID. Titrate 2-3 soft bowel movements per day - Continue rifaximin 550 mg p.o. twice daily 3. Cirrhosis: Patient with liver cirrhosis secondary to STEVE, portal hypertension. Patient follows with gastroenterology, last seen by Dr. Toledo on 04/20/19. HCV screening has been completed and is negative. AFP on 03/09/2019 = 2.6. INR = 1.4 -Repeat LFTs in AM -Continue Lactulose 1-3 times daily, titrate to 3-4 soft bowel movements per day. -Continue Rifaximin 550 mg p.o. twice daily -Continue zinc supplementation 50 mg daily -Continue Aldactone for lower extremity edema -Low sodium diet as tolerated -Avoid hepatotoxic agents 4. Seizure disorder: Patient with history of seizure. She follows with neurology, last seen on 04/02/19. EEG completed in May 2018 revealed a generalized spike and slow wave abnormality consistent with an underlying generalized seizure disorder. Patient had an MRI brain completed in October 2017 which was unremarkable. Patient failed VNS placement in the past, device was explanted. Presently on topiramate, Trileptal and Keppra. She was recently seen in the ER on 05/17/19 with report of seizures x 4 at home with a 5th seizure witnessed in triage - shaking her head and upper extremities. After consultation with Neurology her Oxcarbazepine was increased to 600mg po BID. -Continue topiramate 100 mg p.o. twice daily -Continue Trileptal 300 mg p.o. every morning and 600 mg p.o. nightly -Continue Keppra 1500 mg p.o. twice daily 5. Diabetes: Patient with type 2 diabetes, well controlled, long-term use of insulin. Blood sugar today =176. Last hemoglobin A1c=4.6 on 10/20/19. Patient follows with Endocrinology/Diabetes education. -Continue Tresiba 12 units subcu every morning - ISS, goal blood sugar while inpatient 100 - 140 -Recommend annual A1c monitoring -Followup with museum educator outpatient as instructed 6. Chronic gait disorder - patient mostly in wheelchair at home. -Fall precautions -Wheelchair and walker as needed -Assistance as needed with transfers and ambulation -Patient has home health nurse - PT/OT ordered in the hospital. 7. Hypothyroidism - TSH=1.56 -Continue Synthroid 8. GERD- Chronic. Stable. -Continue Omeprazole 40mg po daily 9. Depression - Chronic. Stable. Patient presently not on any medications. She has been evaluated by Psychiatry in the past. 10. Asthma - history of severe persistent asthma. She has seen Pulmonary as well as Allergy/Immunology in the past. Spirometry performed on 04/23/19 with FVC=1.37, 38% predicted. FEV1=1.18, 40% predicted and FEV1/FVC=86%. Suggestive of restrictive process vs obstruction with air trapping. Study limited. Formal PFTs ordered, not yet completed. Presently CTA, adequate oxygenation on room air, no concern for exacerbation at this time. -Continue home medications 11. Migraine: Patient with episodic migraines. Well-controlled. -Continue topiramate -Patient has used Maxalt in the past with success for migraine relief if needed 12. Tremor: Patient with coarse postural and action tremor. -Continue topiramate Ppx - Low risk for DVT. Code - Full per discussion with patient Dispo -observation to medical floor (2) Hypomagnesemia: (3) Diabetes: (4) Severe persistent asthma: (5) Liver cirrhosis secondary to STEVE: (6) Major depressive disorder with psychotic features: (7) Peptic ulcer disease: (8) Blanca's thyroiditis: (9) Controlled type 2 diabetes mellitus, with long-term current use of insulin: (10) GERD (gastroesophageal reflux disease): (11) Seizure disorder: Admission and Anticipated Discharge Date Admission Date: November 02, 2019 Subjective Right hip pain continues. She is very tearful about the need for surgery. Reports no fevers/chills, chest pain, shortness of breath, abdominal pain, nausea, or vomiting. Physical Exam Constitutional: WD/WN, vitals as above + acute distress Eyes: EOM intact bilaterally; no conjunctival abnormality ENMT: external ear and nose normal, oropharynx normal Neck: trachea midline, no thyromegaly normal visual inspection Respiratory: normal respiratory effort, lungs clear to auscultation no respiratory distress Cardiovascular: RRR, no murmur, no edema Gastrointestinal (Abdomen): Inspection/Auscultation: abdomen normal to insp ection; abdomen not distended Musculoskeletal: no cyanosis or clubbing, extremities motor strength 5/5 Skin: no rashes, warm and dry Neurologic: moves all extremities and awake Psychiatric: Orientation: alert, oriented to person and cooperative Affect: + tearful affect Results & Data Results & Data ([facility]) Vital Signs (Past 12 Hours) Vital Signs Temp Pulse Pulse Resp BP Pulse Ox 11/03/19 06:00 81 16 98 11/03/19 03:31 36.9 C 82 18 102/63 97 11/02/19 23:04 36.8 C 91 H 18 105/58 L 99 11/02/19 23:00 78 11/02/19 22:50 81 18 98 11/02/19 19:56 36.9 C 92 H 18 136/71 99 PG Care Time/CCT Total # of Minutes Spent Total Time Spent with Patient: Total time spent is greater than 50% in coordination of care (as documented) at patient's floor/unit and/or counseling patient: Coding Level of Care Code 01173 Subseq Hosp Care Lvl 3 Diagnoses Weakness R53.1 Hypomagnesemia E83.42 Diabetes E11.69; Z79.4 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 complication status: with other specified complication 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 ad terminal makeup operator insulin use: with ad terminal makeup operator use 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 type: type 2 Severe persistent asthma J45.50 Asthma complication type: uncomplicated Liver cirrhosis secondary to STEVE K75.81; K74.60 Major depressive disorder with psychotic features F32.3 Peptic ulcer disease K27.9 Blanca's thyroiditis E06.3 Controlled type 2 diabetes mellitus, with long-term current use of insulin E11.69; Z79.4 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 complication status: with other specified complication GERD (gastroesophageal reflux disease) K21.9 Esophagitis presence: esophagitis presence not specified Seizure disorder G40.909 (1) Diabetes 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 complication status: with other specified complication 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 ad terminal makeup operator insulin use: with ad terminal makeup operator use 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 type: type 2 Qualified Code(s): E11.69 - Type 2 diabetes mellitus with other specified complication; Z79.4 - residential (current) use of insulin (2) Severe persistent asthma Asthma complication type: uncomplicated Qualified Code(s): J45.50 - Severe persistent asthma, uncomplicated (3) Controlled type 2 diabetes mellitus, with long-term current use of insulin 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 complication status: with other specified complication Qualified Code(s): E11.69 - Type 2 diabetes mellitus with other specified complication; Z79.4 - residential (current) use of insulin (4) GERD (gastroesophageal reflux disease) Esophagitis presence: esophagitis presence not specified Qualified Code(s): K21.9 - Gastro-esophageal reflux disease without esophagitis
[2019-11-03] MEDS: levETIRAcetam 500 MG TAB PO SCH ×2 (08:35→20:54)
[2019-11-03] MEDS: LORATADINE 10 MG TAB PO SCH (08:36)
[2019-11-03] MEDS: RIFAXIMIN 550 MG TABLET PO SCH ×2 (08:36→20:53)
[2019-11-03] MEDS: OXcarbazepine 150 MG TABLET PO SCH ×2 (08:37→20:54)
[2019-11-03] MEDS: INSULIN DEGLUDEC 100 UNITS/ML SQ SCH (08:38)
[2019-11-03] MEDS: TOPIRAMATE 100 MG TAB PO SCH ×2 (08:38→20:55)
[2019-11-03] MEDS: LACTULOSE SYRUP 30 GM/45 ML UDP PO SCH (08:41)
[2019-11-03] MEDS: INSULIN ASPART 100 UNITS/ML 3 ML PEN SC SCH ×4 (08:42→20:55)
[2019-11-03] MEDS: SPIRONOLACTONE 25 MG TAB PO SCH (08:43)
[2019-11-03] MEDS: PANTOprazole 40 MG TAB PO SCH (08:44)
[2019-11-03] MEDS ORDERED: SODIUM CHLORIDE 0.9% 250 ML IV PRN (11:02)
[2019-11-03] MEDS: CHOLECALCIFEROL 1,000 UNITS 25 MCG TAB PO SCH (12:19)
[2019-11-03] MEDS: MAGNESIUM CHLORIDE 64MG DELAYED REL TAB PO SCH (12:19)
[2019-11-03] MEDS: MULTIVITAMIN TAB PO SCH (12:19)
[2019-11-03] MEDS: VITAMIN B COMPLEX TAB PO SCH (12:19)
[2019-11-03] MEDS: ZINC SULFATE 220 MG CAPSULE PO SCH (12:19)
[2019-11-03] MEDS: PROMETHAZINE HCL 25 MG TAB PO PRN (12:50)
--- NOTE | 2019-11-03 14:56 | Orthopedic Consultation ---
Date of Consultation November 03, 2019 Assessment & Plan (1) Closed fracture of right distal femur: Patient will need ORIF of the right distal femur fracture. Currently she is anemic with hemoglobin 7.1. Her first unit is being transfused at this time. COVID test is pending. If patient is medically stable, we will proceed with the above-noted procedure tomorrow afternoon. History of Present Illness Reason for Consultation: Right distal femur fracture Attending Physician: Law Freeman MD History of Present Illness Patient is a 53-year-old white female known to our practice who was admitted on 10/31/2019. Currently the patient is sleeping but is arousable. Patient's is present to give history. He was helping the patient from her bedside commode and as she was standing up, she lost her balance and fell. Patient was experiencing weakness and not feeling well overall. [facility] group. Patient was having difficulty ambulating and her asked to have an x-ray of her right leg. She has been having pain and x-rays revealed a distal femur fracture. Her states that she has not really ambulated since Friday. We have been asked to see her for her distal femur fracture. Allergies Allergy/AdvReac Type Severity Reaction Status Date / Time metronidazole Allergy Severe SEIZURE Verified 10/31/19 22:12 tramadol Allergy Severe SEIZURES Verified 10/31/19 22:12 amoxicillin Allergy Intermediate SEE COMMENT Verified 10/31/19 22:12 baclofen Allergy Intermediate RASH Verified 10/31/19 22:12 butalbital Allergy Intermediate HIVES Verified 10/31/19 22:12 cat dander Allergy Intermediate Hives Verified 10/31/19 22:12 ceftriaxone [From Rocephin] Allergy Intermediate Hives Verified 10/31/19 22:12 clavulanic acid Allergy Intermediate Diarrhea Verified 10/31/19 22:12 dicyclomine Allergy Intermediate HIVES Verified 10/31/19 22:12 dog dander Allergy Intermediate Hives Verified 10/31/19 22:12 horse dander Allergy Intermediate Hives Verified 10/31/19 22:12 pollen extracts Allergy Intermediate Hives Verified 10/31/19 22:12 Tetracyclines Allergy Intermediate DOXYCYCLINE Verified 10/31/19 22:12 -HIVES adhesive Allergy Mild RASH, Verified 10/31/19 22:12 DUODERM=RED,ITCHY sulindac Allergy Mild ALLERGY Verified 10/31/19 22:12 LISTED "CLONDORAL"--HIVES Cephalosporins AdvReac Severe TURNS Verified 10/31/19 22:12 STOOL VERY DARK levofloxacin [From Levaquin] AdvReac Severe Vomiting Verified 10/31/19 22:12 metoclopramide AdvReac Severe SEIZURES Verified 10/31/19 22:12 paroxetine [From Paxil] AdvReac Severe Vomiting Verified 10/31/19 22:12 cefdinir AdvReac Intermediate Diarrhea Verified 10/31/19 22:12 celecoxib AdvReac Mild HIVES Verified 10/31/19 22:12 Home Medications Home Medications Medication Instructions Recorded Confirmed Type multivitamin [Multiple Vitamins] 1 tab PO QDL 12/26/17 10/31/19 History Probiotic 0 mmu cells PO QDL 09/20/18 10/31/19 History cholecalciferol (vitamin D3) 1,000 unit PO QDL 09/20/18 10/31/19 History [Vitamin D3] vitamin A 8,000 unit PO QDL 09/20/18 10/31/19 History vitamin B complex 1 tab PO QDL 09/20/18 10/31/19 History promethazine 25 mg PO Q6H PRN #12 tab 10/27/18 10/31/19 Rx cranberry 400 mg PO BID 02/04/19 10/31/19 History zinc 50 mg PO QDL 02/09/19 10/31/19 History epinephrine 0.3 mg/0.3 mL 0.3 mg IM Q10M PRN 04/02/19 10/31/19 History injection, auto-injector lecithin 1,200 mg capsule 1,200 mg PO QDL 04/29/19 10/31/19 History loratadine 10 mg tablet 10 mg PO QAM 04/29/19 10/31/19 History Slow-Mag 143 mg PO QDL 06/10/19 10/31/19 History sodium chloride 0.65 % nasal spray 1 sprays INTNAS BID PRN #15 ml 07/26/19 10/31/19 Rx aerosol ipratropium 0.5 mg-albuterol 3 mg 3 ml INH QID PRN #90 ml 07/30/19 10/31/19 Rx (2.5 mg base)/3 mL nebulization soln omeprazole 40 mg capsule,delayed 40 mg PO QAM #90 cap 08/02/19 10/31/19 Rx release rifaximin 550 mg tablet 550 mg PO BID #60 tab 09/06/19 10/31/19 Rx levetiracetam 750 mg tablet 1,500 mg PO BID 30 Days #120 tab 09/09/19 10/31/19 Rx topiramate 100 mg tablet 100 mg PO BID #60 tab 09/09/19 10/31/19 Rx insulin aspart U-100 100 unit/mL See Rx Instructions SQ .COMPLEX 09/24/19 10/31/19 Rx (3 mL) subcutaneous pen #15 ml oxcarbazepine 300 mg tablet 300 mg PO .COMPLEX #90 tab 09/24/19 10/31/19 Rx rizatriptan 10 mg disintegrating 10 mg PO .COMPLEX PRN 30 Days #9 09/24/19 10/31/19 Rx tablet tab Tresiba FlexTouch U-100 12 units SUBCUT QAM 10/10/19 10/31/19 History melatonin 5 - 15 mg PO HS PRN 10/10/19 10/31/19 History spironolactone 50 mg PO QAM 10/10/19 10/31/19 History levothyroxine [Euthyrox] 50 mcg PO QAM 10/19/19 10/31/19 History lactulose 20 gram/30 mL oral 30 - 45 ml PO QAM ml 10/27/19 10/31/19 History solution Refresh Optive Advanced 2 drops OP TID PRN 10/31/19 10/31/19 History Patient History Medical History Allergic rhinitis Asthma STABLE Blepharitis of both eyes (Inactive) Depression Dysphagia GERD (gastroesophageal reflux disease) CONTROLLED Hemorrhoids (Inactive) Hepatic encephalopathy HX; ON LACTULOSE/XIFAXAN Hx of migraines Hyperammonemia (Acute) Hypocalcemia (Inactive) Hypothyroidism Myoclonic seizure "FREQUENT MYOCLONIC SEIZURES" FOLLOWS WITH DR. YANG Never a smoker (Inactive) Nonalcoholic fatty liver disease (Inactive) Pancytopenia (Acute) CHRONIC Parkinsonism (Acute) Pneumonia (Inactive) Polydipsia (Resolved) Seizure disorder (05/26/11) + PSEUDOSEIZURES Spleen enlargement (Acute) Surgical History History of ankle surgery B/L History of appendectomy History of cholecystectomy History of colonoscopy History of esophagogastroduodenoscopy (EGD) History of kyphoplasty History of surgery on arm LEFT History of tooth extraction Hx of carpal tunnel repair B/L Hx of cataract extraction B/L S/P laminectomy lumbar spine S/P nasal surgery nasal bone fracture repair S/P TIFFANIE-BSO (1997) Family History Other Adopted No pertinent family history Social History Smoking Status: Never smoker Tobacco Type: Cigarettes Second Hand Exposure: No; Hx Alcohol Use: No Hx Substance Use: No Preferred Language: Thai Communication Ability: Effective Visual Impairment: No Limitations City Attorney Required: No Beliefs That Will Affect Care: Jain Jain Beliefs: hoahaoism marital status: Current Living Situation: Spouse Current Living Situation Comment: Lives with Benny current occupational status: unemployed and disabled How many Children do You have: 0 Feels Safe at Home: Yes Safety Concerns: Feels Safe At This Time Seatbelt Use: always Physical Exam Physical Exam: Patient was sleeping upon arrival and is fairly somnolent. She was easily awoken but sometimes falls back asleep during conversation. Currently she states that she has some pain off and on in the right thigh. On examination of the right lower extremity, the knee has some swelling and as well as does the thigh of the right lower extremity. There is no overt bruising noted at this time and she is mildly tender on palpation. The knee is slightly flexed. No attempted range of motion is done due to fracture. She does have good range of motion of her toes and ankle at this time. Sensation is intact. States she has some slight tingling in her toes. Denies calf tenderness bilaterally. Denies pain at the right hip. Left lower extremity appears to be unaffected and is nontender at the hip knee and ankle. Still pulses are equal bilaterally. No new pains at the shoulders elbows and wrists. Range of motion of the upper extremities appear to be within normal limits. No gross motor or sensory loss seen at this time. Results & Data ([facility]) Vital Signs (Past 12 Hours) Vital Signs Temp Pulse Pulse Resp BP BP Pulse Ox 11/03/19 14:15 37.1 C 89 18 120/69 100 11/03/19 13:45 37 C 95 H 16 120/77 97 11/03/19 13:08 37.0 C 91 H 18 121/72 98 11/03/19 12:53 36.7 C 92 H 18 123/74 98 11/03/19 12:35 37.0 C 96 H 18 119/72 11/03/19 11:12 37.0 C 93 H 20 119/69 98 11/03/19 07:27 36.8 C 91 H 20 111/65 100 11/03/19 06:00 81 16 98 11/03/19 03:31 36.9 C 82 18 102/63 97 Diagnostic Findings Patient: CHRISTO SAN CAdmit Date: 11/01/19 MR#: [id number]: [address] Acct ID:[id number]: Date: 1965ty Zip: [place] [address] Age: 53Location: 2N Sex: F Room/Bed: [facility] Att Phy: Law Freeman MDDiagnosis: NAUSEA, TACHYCARDIA Eve Phy: Balaji Zaragoza DOService Date: 11/02/19 Fam Phy:Interpreting Phy: Aiden Randolph MD Admit Phy: Amalia Beatty, D.O. Ordering Phy: Law Freeman MD cc: ~ SINGLE VIEW PELVIS; 2 VIEWS RIGHT HIP CLINICAL HISTORY: Fall. Right hip pain. FINDINGS: 2 AP views of the pelvis with AP and frog-leg views of the right hip and femur are compared to study dated 04/10/2018. Correlation is made with right femoral radiographs dated 12/14/2017. The skeletal structures are osteopenic. No acute fracture is seen involving the hips or bony pelvis. There is chronic posttraumatic deformity of the right proximal femur with intertrochanteric and intramedullary nails in place. There is a displaced spiral fracture of the distal femoral shaft around the distal end of the intramedullary nail. There is apex dorsal angulation with overlying soft tissue edema. Degenerative joint space narrowing is seen in both hips, right greater than left. Sclerotic change is noted in the sacroiliac joints. Lumbosacral spondylosis is partially imaged. IMPRESSION: 1. There is no radiographic evidence of acute fracture involving the hips or bony pelvis. 2. There is an acute, distracted, and angulated spiral fracture of the distal femoral shaft around the inferior end of the intramedullary nail. 3. 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
--- NOTE | 2019-11-03 17:41 | Anesthesiology Consultation ---
Date of Service November 03, 2019 Assessment & Plan (1) Encounter for pre-operative examination: Chart Review Chart Review: Acceptable Risk for Surgery (is receiving blood tonight - may need more preoperatively and likely will need some intra- and or post-operatively - possible she may need platelets as well so will try to make sure they would be available) History Surgery Operation Date: 11/04/19 11:35 Proposed Procedures p Open Reduction Internal Fixation Distal Femur Fracture - Stephan Thrasher, Height/Weight Height: 5 ft 5 in Weight: 97 kg Allergies Allergy/AdvReac Type Severity Reaction Status Date / Time metronidazole Allergy Severe SEIZURE Verified 10/31/19 22:12 tramadol Allergy Severe SEIZURES Verified 10/31/19 22:12 amoxicillin Allergy Intermediate SEE COMMENT Verified 10/31/19 22:12 baclofen Allergy Intermediate RASH Verified 10/31/19 22:12 butalbital Allergy Intermediate HIVES Verified 10/31/19 22:12 cat dander Allergy Intermediate Hives Verified 10/31/19 22:12 ceftriaxone [From Rocephin] Allergy Intermediate Hives Verified 10/31/19 22:12 clavulanic acid Allergy Intermediate Diarrhea Verified 10/31/19 22:12 dicyclomine Allergy Intermediate HIVES Verified 10/31/19 22:12 dog dander Allergy Intermediate Hives Verified 10/31/19 22:12 horse dander Allergy Intermediate Hives Verified 10/31/19 22:12 pollen extracts Allergy Intermediate Hives Verified 10/31/19 22:12 Tetracyclines Allergy Intermediate DOXYCYCLINE Verified 10/31/19 22:12 -HIVES adhesive Allergy Mild RASH, Verified 10/31/19 22:12 DUODERM=RED,ITCHY sulindac Allergy Mild ALLERGY Verified 10/31/19 22:12 LISTED "CLONDORAL"--HIVES Cephalosporins AdvReac Severe TURNS Verified 10/31/19 22:12 STOOL VERY DARK levofloxacin [From Levaquin] AdvReac Severe Vomiting Verified 10/31/19 22:12 metoclopramide AdvReac Severe SEIZURES Verified 10/31/19 22:12 paroxetine [From Paxil] AdvReac Severe Vomiting Verified 10/31/19 22:12 cefdinir AdvReac Intermediate Diarrhea Verified 10/31/19 22:12 celecoxib AdvReac Mild HIVES Verified 10/31/19 22:12 Medications Home Medications Medication Instructions Recorded Confirmed Last Taken multivitamin [Multiple Vitamins] 1 tab PO QDL 12/26/17 10/31/19 10/19/19 Probiotic 0 mmu cells PO QDL 09/20/18 10/31/19 10/19/19 cholecalciferol (vitamin D3) 1,000 unit PO QDL 09/20/18 10/31/19 10/19/19 [Vitamin D3] vitamin A 8,000 unit PO QDL 09/20/18 10/31/19 10/19/19 vitamin B complex 1 tab PO QDL 09/20/18 10/31/19 10/19/19 promethazine 25 mg PO Q6H PRN #12 tab 10/27/18 10/31/19 10/10/19 cranberry 400 mg PO BID 02/04/19 10/31/19 10/19/19 08:00 zinc 50 mg PO QDL 02/09/19 10/31/19 10/19/19 epinephrine 0.3 mg/0.3 mL 0.3 mg IM Q10M PRN 04/02/19 10/31/19 Unknown injection, auto-injector lecithin 1,200 mg capsule 1,200 mg PO QDL 04/29/19 10/31/19 10/19/19 loratadine 10 mg tablet 10 mg PO QAM 04/29/19 10/31/19 10/19/19 Slow-Mag 143 mg PO QDL 06/10/19 10/31/19 10/19/19 sodium chloride 0.65 % nasal spray 1 sprays INTNAS BID PRN #15 ml 07/26/19 10/31/19 08/11/19 aerosol ipratropium 0.5 mg-albuterol 3 mg 3 ml INH QID PRN #90 ml 07/30/19 10/31/19 10/09/19 (2.5 mg base)/3 mL nebulization soln omeprazole 40 mg capsule,delayed 40 mg PO QAM #90 cap 08/02/19 10/31/19 10/19/19 release rifaximin 550 mg tablet 550 mg PO BID #60 tab 09/06/19 10/31/19 10/19/19 08:00 levetiracetam 750 mg tablet 1,500 mg PO BID 30 Days #120 tab 09/09/19 10/31/19 10/19/19 08:00 topiramate 100 mg tablet 100 mg PO BID #60 tab 09/09/19 10/31/19 10/19/19 08:00 insulin aspart U-100 100 unit/mL See Rx Instructions SQ .COMPLEX 09/24/19 10/31/19 10/10/19 10:00 (3 mL) subcutaneous pen #15 ml oxcarbazepine 300 mg tablet 300 mg PO .COMPLEX #90 tab 09/24/19 10/31/19 10/19/19 08:00 rizatriptan 10 mg disintegrating 10 mg PO .COMPLEX PRN 30 Days #9 09/24/19 10/31/19 Unknown tablet tab Tresiba FlexTouch U-100 12 units SUBCUT QAM 10/10/19 10/31/19 10/19/19 melatonin 5 - 15 mg PO HS PRN 10/10/19 10/31/19 10/08/19 spironolactone 50 mg PO QAM 10/10/19 10/31/19 10/19/19 levothyroxine [Euthyrox] 50 mcg PO QAM 10/19/19 10/31/19 10/19/19 lactulose 20 gram/30 mL oral 30 - 45 ml PO QAM ml 10/27/19 10/31/19 Unknown solution Refresh Optive Advanced 2 drops OP TID PRN 10/31/19 10/31/19 Unknown Active Medications Generic Name Dose Route Start Last Admin Trade Name Freq PRN Reason Stop Dose Admin Acetaminophen 1,000 mg 11/02/19 17:16 11/02/19 20:40 Tylenol PO 12/01/19 01:51 1,000 mg Q8H PRN Administration pain/fever Albuterol 3 ml 11/01/19 01:52 11/03/19 05:58 Duoneb INH 12/01/19 01:51 3 ml QID PRN Administration wheezing Heparin Sodium (Porcine) 5 ml 11/01/19 06:51 11/03/19 06:35 Heparin Sod 100 Unit/Ml Flush FLUSH 12/01/19 06:50 5 ml PRN PRN Administration Flush Insulin Aspart 0 units 11/01/19 02:30 11/03/19 17:41 Novolog Flexpen SC 12/01/19 02:29 6 units ACHS SHEBA Administration Insulin Degludec 6 units 11/03/19 09:00 11/03/19 08:38 Tresiba Flextouch U-100 SQ 12/03/19 08:59 6 units QAM SHEBA Administration Lactulose 30 gm 11/01/19 09:00 11/03/19 08:41 Chronulac PO 12/01/19 08:59 Not Given QAM SHEBA Levetiracetam 1,500 mg 11/01/19 09:00 11/03/19 08:35 Keppra PO 12/01/19 08:59 1,500 mg BID SHEBA Administration Levothyroxine Sodium 50 mcg 11/01/19 06:30 11/03/19 05:47 Synthroid PO 12/01/19 06:29 50 mcg DAILYBB SHEBA Administration Loratadine 10 mg 11/01/19 09:00 11/03/19 08:36 Claritin PO 12/01/19 08:59 10 mg QAM SHEBA Administration Magnesium Chloride 128 mg 11/01/19 11:30 11/03/19 12:19 Slow-Mag PO 12/01/19 11:29 128 mg QDL SHEBA Administration Multivitamins 1 tab 11/01/19 11:30 11/03/19 12:19 Multivitamin Tab PO 12/01/19 11:29 1 tab QDL SHEBA Administration Oxcarbazepine 300 mg 11/01/19 09:00 11/03/19 08:37 Trileptal PO 12/01/19 08:59 300 mg QAM SHEBA Administration Oxcarbazepine 600 mg 11/01/19 21:00 11/02/19 20:38 Trileptal PO 12/01/19 20:59 600 mg HS SHEBA Administration Pantoprazole Sodium 40 mg 11/01/19 09:00 11/03/19 08:44 Protonix PO 12/01/19 08:59 40 mg QAM SHEBA Administration Promethazine HCl 25 mg 11/01/19 01:52 11/03/19 12:50 Phenergan PO 12/01/19 01:51 25 mg Q6H PRN Administration sedation Rifaximin 550 mg 11/01/19 09:00 11/03/19 08:36 Xifaxan PO 12/01/19 08:59 550 mg BID SHEBA Administration Spironolactone 50 mg 11/01/19 09:00 11/03/19 08:43 Aldactone PO 12/01/19 08:59 50 mg QAM SHEBA Administration Topiramate 100 mg 11/01/19 09:00 11/03/19 08:38 Topamax PO 12/01/19 08:59 100 mg BID SHEBA Administration Vitamin B Complex 1 tab 11/01/19 11:30 11/03/19 12:19 Vitamin B Complex PO 12/01/19 11:29 1 tab QDL SHEBA Administration Vitamin D 1,000 units 11/01/19 11:30 11/03/19 12:19 Vitamin D3 PO 12/01/19 11:29 1,000 units QDL SHEBA Administration Zinc Sulfate 220 mg 11/01/19 11:30 11/03/19 12:19 Zinc Sulfate PO 12/01/19 11:29 220 mg QDL SHEBA Administration Past Medical History Medical History (Updated 11/03/19 @ 17:38 by Chris Hardy MD) Allergic rhinitis Asthma STABLE Blepharitis of both eyes (Inactive) Chronic liver disease and cirrhosis (Acute) Depression Dysphagia GERD (gastroesophageal reflux disease) CONTROLLED Hemorrhoids (Inactive) Hepatic encephalopathy HX; ON LACTULOSE/XIFAXAN Hx of migraines Hyperammonemia (Acute) Hyperammonemia (Acute) Hypocalcemia (Inactive) Hypothyroidism Myoclonic seizure "FREQUENT MYOCLONIC SEIZURES" FOLLOWS WITH DR. YANG Never a smoker (Inactive) Nonalcoholic fatty liver disease (Inactive) Pancytopenia (Acute) CHRONIC Parkinsonism (Acute) Pneumonia (Inactive) Polydipsia (Resolved) Seizure disorder (05/26/11) + PSEUDOSEIZURES Spleen enlargement (Acute) Thrombocytopenia (Acute) Past Family History Family History Other Adopted No pertinent family history Past Surgical History Surgical History History of ankle surgery B/L History of appendectomy History of cholecystectomy History of colonoscopy History of esophagogastroduodenoscopy (EGD) History of kyphoplasty History of surgery on arm LEFT History of tooth extraction Hx of carpal tunnel repair B/L Hx of cataract extraction B/L S/P laminectomy lumbar spine S/P nasal surgery nasal bone fracture repair S/P TIFFANIE-BSO (1997) Social History Smoking Status: Never smoker Hx Alcohol Use: No Alcohol type: hard liquor alcohol intake frequency: holidays/special occasions only Hx Substance Use: No substance use type: does not use Physical Exam Vital Signs Last Vital Signs Temp 36.4 C L 11/03/19 16:20 Pulse 83 11/03/19 16:20 Resp 17 11/03/19 16:20 BP 121/74 11/03/19 16:20 Pulse Ox 97 11/03/19 15:38 Testing Laboratory Results 11/03/19 05:56 11/03/19 05:56 PT 13.5 Seconds (9.0-12.0) H 11/03/19 05:56 INR 1.3 (0.9-1.1) H 11/03/19 05:56 APTT 34.2 Seconds (21.0-31.0) H 10/31/19 22:05 Urine Color Dark Yellow 10/31/19 22:25 Urine Appearance Clear (Clear) 10/31/19 22:25 Urine pH 6.5 (4.5-7.5) 10/31/19 22:25 Ur Specific Radnor 1.021 (1.000-1.030) 10/31/19 22:25 Urine Protein Trace (Negative) H 10/31/19 22:25 Urine Glucose (UA) Negative (Negative) 10/31/19 22:25 Urine Ketones Trace (Negative) H 10/31/19 22:25 Urine Nitrite Negative (Negative) 10/31/19 22:25 Ur Leukocyte Esterase Trace (Negative) H 10/31/19 22:25 Urine WBC (Auto) 1-5 /hpf (0-5) 10/31/19 22:25 Urine RBC (Auto) 0-4 /hpf (0-4) 10/31/19 22:25 U Hyaline Cast (Auto) 1-5 /lpf (0-5) 10/31/19 22:25 U Epithel Cells (Auto) 10-20 /lpf (0-5) H 10/31/19 22:25 Urine Bacteria (Auto) Negative (Negative) 10/31/19 22:25 Blood Type O Positive 11/03/19 07:16 Antibody Screen NEGATIVE 11/03/19 07:16 10/31/19 22:05 Aerobic Blood Culture - Preliminary Blood No growth in Aerobic bottle after 48 hours. Anaerobic Blood Culture - Final 10/31/19 22:05 Aerobic Blood Culture - Preliminary Blood No growth in Aerobic bottle after 48 hours. Anaerobic Blood Culture - Preliminary No growth in Anaerobic bottle after 48 hours. 11/03/19 11/03/19 11/03/19 16:53 11:27 07:24 POC Glucose 148 H 135 H 152 H Electrocardiogram Date: 10/31/19 Findings: + poor R wave progression and + ST @ (102) Chest X-Ray Date: 10/31/19 Findings: + NAD Stress Test Date: 09/11/18 Type: DSE Findings: + WNL Resting EF: 65% Resting LV Function: normal Resting RWMA: + none Valvular Disease: no significant valvular disease
[2019-11-03] MEDS: ACETAMINOPHEN 500 MG TAB PO PRN (21:00)
[2019-11-04] MEDS ORDERED: CLINDAMYCIN 600 MG in DEXTROSE 5% 50 ML IV SCH (06:00)
[2019-11-04 06:08] LABS: INR 1.3 (0.9-1.1); Prothrombin Time 13.4 Seconds (9.0-12.0)
[2019-11-04] MEDS: LEVOTHYROXINE SODIUM 50 MCG TABLET PO SCH (06:09)
[2019-11-04 06:24] LABS: Hemoglobin 7.6 g/dL (12.0-16.0); Mean Corpuscular Hgb Conc 36.2 g/dL (32-36); Mean Corpuscular Volume 96.8 fL (80-100); Platelet Count 59 K/uL (130-400); RDW Coefficient of Variation 16.2 % (11.5-14.5); RDW Standard Deviation 56.5 fL (36.4-46.3); Red Blood Count 2.17 M/uL (4.2-5.4); White Blood Count 2.55 K/uL (4.8-10.8)
[2019-11-04 06:27] LABS: Albumin Level 2.1 gm/dl (3.4-5.0); BUN Creatinine Ratio 25.2 (10-20); Calcium 7.1 mg/dl (8.5-10.1); Creatinine Clr Calc Pharmacy 190.5 ml/min; Est GFR (African American) 137.8; Est GFR (Non-African American) 118.9; Magnesium 1.4 mg/dl (1.8-2.4); Potassium 3.8 mmol/L (3.5-5.1)
[2019-11-04 06:30] LABS: Albumin Globulin Ratio 0.9 (0.9-2); Bilirubin,Total 2.2 mg/dl (0.2-1); Globulin 2.3 gm/dl (2.5-4.0); Total Protein 4.4 gm/dl (6.4-8.2)
[2019-11-04] MEDS ORDERED: SODIUM CHLORIDE 0.9% 250 ML IV PRN ×2 (07:24→16:17)
[2019-11-04 07:42] LABS: Platelet Estimate Decreased (Normal)
[2019-11-04] MEDS: RIFAXIMIN 550 MG TABLET PO SCH ×2 (08:13→22:00)
[2019-11-04] MEDS: levETIRAcetam 500 MG TAB PO SCH ×2 (08:14→21:16)
[2019-11-04] MEDS: PANTOprazole 40 MG TAB PO SCH (08:14)
[2019-11-04] MEDS: OXcarbazepine 150 MG TABLET PO SCH ×2 (08:14→22:00)
[2019-11-04] MEDS: TOPIRAMATE 100 MG TAB PO SCH ×2 (08:15→22:00)
[2019-11-04] MEDS: SPIRONOLACTONE 25 MG TAB PO SCH (08:15)
[2019-11-04] MEDS: LORATADINE 10 MG TAB PO SCH (08:15)
[2019-11-04] MEDS: INSULIN ASPART 100 UNITS/ML 3 ML PEN SC SCH ×4 (08:16→21:38)
[2019-11-04] MEDS: INSULIN DEGLUDEC 100 UNITS/ML SQ SCH (08:17)
[2019-11-04] MEDS: ACETAMINOPHEN 500 MG TAB PO PRN (08:25)
[2019-11-04] MEDS: MAGNESIUM SULFATE / D5W 1 GM/100 ML BAG IV SCH ×2 (08:26→13:49)
[2019-11-04] MEDS ORDERED: LORazepam 0.5 MG/1 ML VIAL IV PRN (09:02)
[2019-11-04] MEDS: MoRPHine SULFATE 4 MG/ML 1 ML CARP\\VIAL IV PRN ×2 (09:24→13:31)
[2019-11-04] MEDS: LACTULOSE SYRUP 30 GM/45 ML UDP PO SCH (10:14)
[2019-11-04] MEDS: CHOLECALCIFEROL 1,000 UNITS 25 MCG TAB PO SCH (12:15)
[2019-11-04] MEDS: MULTIVITAMIN TAB PO SCH (12:16)
[2019-11-04] MEDS: VITAMIN B COMPLEX TAB PO SCH (12:16)
[2019-11-04] MEDS: ZINC SULFATE 220 MG CAPSULE PO SCH (12:16)
[2019-11-04] MEDS: MAGNESIUM CHLORIDE 64MG DELAYED REL TAB PO SCH (12:16)
[2019-11-04] MEDS: PROMETHAZINE HCL 25 MG TAB PO PRN (13:41)
--- NOTE | 2019-11-04 14:27 | Orthopedic Progress Note ---
Date of Service November 04, 2019 Assessment & Plan (1) Closed fracture of right distal femur: The patient is a 53-year-old female who presents with displaced rogelio- implant distal one third femur spiral fracture. I indicated the patient for a open reduction internal fixation of right distal femur possible removal of hardware and the risks and benefits were explained in detail which included but not limited to infection, bleeding and ischemic related complications, blood clot, damage to surrounding bone, nerves, vessels, soft tissue, malunion/nonunion, failure of the implants, leg length discrepancy, need for additional surgery, loss of limb and loss of life. The patient was medically s tabilized on 11/04/2019 to proceed with surgery. The patient and agreed to proceed with ORIF right distal femur and informed consent was obtained. Patient's hemoglobin currently 7.6, anesthesia aware, blood on hand to be provided intraoperative and postoperatively. Admission and Anticipated Discharge Date Admission Date: November 02, 2019 Subjective The patient was seen preoperatively laying in bed, comfortable, no acute issues, pain well controlled. at bedside. Reports she sustained a mechanical fall from standing height on 10/31/2019, inability to ambulate, was subsequently admitted to [facility], x-rays while admitted to the hospital demonstrated a spiral fracture of the distal one third femur at the tip of the long cephalo-medullary nail. Patient denies any associated injuries at this time. Denies any numbness or tingling right lower extremity. Review of Systems Review of Systems: All systems reviewed & are unremarkable except as noted in HPI & below Constitutional: as per Subjective / HPI Physical Exam Physical Exam: RLE NVSI +EHL/FHL, PATIENT DOES NOT DORSIFLEX OR PLANTARFLEX WELL WHEN ASKED SILT grossly, +2 DP pulse, compartments soft NT, knee immobilizer in place. Constitutional: WD/WN, vitals as above Results & Data ([facility]) Vital Signs (Past 12 Hours) Vital Signs Temp Pulse Pulse Resp BP BP Pulse Ox 11/04/19 13:17 36.8 C 71 18 116/69 99 11/04/19 12:01 37.0 C 73 18 107/67 97 11/04/19 11:01 37.1 C 77 18 114/70 98 11/04/19 10:31 36.9 C 74 16 111/65 97 11/04/19 10:15 36.8 C 77 20 103/60 97 11/04/19 09:58 37.1 C 95 H 20 125/67 11/04/19 07:31 78 11/04/19 07:11 36.9 C 81 18 112/66 100
--- NOTE | 2019-11-04 14:32 | History & Physical Bridge Note ---
Date of Service November 04, 2019 History & Physical Bridge Note I have examined the patient, reviewed the History & Physical and in the interval since the performance of the History & Physical I have noted the following changes of clinical significance: no changes noted
--- NOTE | 2019-11-04 15:34 | Hospitalist Progress Note ---
Date of Service November 04, 2019 Assessment & Plan (1) Weakness: Broken right femur: As a result of mechanical fall at home. Right hip x- rays on 11/01 show: "Acute, distracted, and angulated spiral fracture of the distal femoral shaft around the inferior end of the intramedullary nail." - Ortho consulted -> Surgery today. - Bed rest - Pain control Anemia: Hgb dropped from 10.7 to 7.4. Repeat was 7.9. Brown BM, mild bruising. - Likely due to broken femur with possible bleeding near the fracture - Hgb of 7.1 on 11/02 - Received 1 unit of PRBCs on 11/02 and another on 11/03. 1. Weakness/Chills/Nausea -afebrile at present, sinus tachycardia with heart rate = 103, mildly tachypneic with respiratory rate = 24. All other laboratory parameters seem to be near patient's baseline with exception with mild elevation of T bili of 2.6. Patient denies exposure to COVID-19 or recent travel. Stable today Follow culture results -> Negative after 48 hours. 2. Hepatic encephalopathy: Patient with persistently elevated ammonia level. Ammonia = 54.9 today. Patient is awake, alert, following commands and answering questions appropriately - Continue Lactulose QID. Titrate 2-3 soft bowel movements per day - Continue rifaximin 550 mg p.o. twice daily 3. Cirrhosis: Patient with liver cirrhosis secondary to STEVE, portal hypertension. Patient follows with gastroenterology, last seen by Dr. Toledo on 04/20/19. HCV screening has been completed and is negative. AFP on 03/09/2019 = 2.6. INR = 1.4 -Repeat LFTs in AM -Continue Lactulose 1-3 times daily, titrate to 3-4 soft bowel movements per day. -Continue Rifaximin 550 mg p.o. twice daily -Continue zinc supplementation 50 mg daily -Continue Aldactone for lower extremity edema -Low sodium diet as tolerated -Avoid hepatotoxic agents 4. Seizure disorder: Patient with history of seizure. She follows with neurology, last seen on 04/02/19. EEG completed in May 2018 revealed a generalized spike and slow wave abnormality consistent with an underlying generalized seizure disorder. Patient had an MRI brain completed in October 2017 which was unremarkable. Patient failed VNS placement in the past, device was explanted. Presently on topiramate, Trileptal and Keppra. She was recently seen in the ER on 05/17/19 with report of seizures x 4 at home with a 5th seizure witnessed in triage - shaking her head and upper extremities. After consultation with Neurology her Oxcarbazepine was increased to 600mg po BID. -Continue topiramate 100 mg p.o. twice daily -Continue Trileptal 300 mg p.o. every morning and 600 mg p.o. nightly -Continue Keppra 1500 mg p.o. twice daily 5. Diabetes: Patient with type 2 diabetes, well controlled, long-term use of insulin. Blood sugar today =176. Last hemoglobin A1c=4.6 on 10/20/19. Patient follows with Endocrinology/Diabetes education. -Continue Tresiba 12 units subcu every morning - ISS, goal blood sugar while inpatient 100 - 140 -Recommend annual A1c monitoring -Followup with patient educator outpatient as instructed -> Sugars good today. 6. Chronic gait disorder - patient mostly in wheelchair at home. -Fall precautions -Wheelchair and walker as needed -Assistance as needed with transfers and ambulation -Patient has home health nurse - PT/OT ordered in the hospital. 7. Hypothyroidism - TSH=1.56 -Continue Synthroid 8. GERD- Chronic. Stable. -Continue Omeprazole 40mg po daily 9. Depression - Chronic. Stable. Patient presently not on any medications. She has been evaluated by Psychiatry in the past. 10. Asthma - history of severe persistent asthma. She has seen Pulmonary as well as Allergy/Immunology in the past. Spirometry performed on 04/23/19 with FVC=1.37, 38% predicted. FEV1=1.18, 40% predicted and FEV1/FVC=86%. Suggestive of restrictive process vs obstruction with air trapping. Study limited. Formal PFTs ordered, not yet completed. Presently CTA, adequate oxygenation on room air, no concern for exacerbation at this time. -Continue home medications 11. Migraine: Patient with episodic migraines. Well-controlled. -Continue topiramate -Patient has used Maxalt in the past with success for migraine relief if needed 12. Tremor: Patient with coarse postural and action tremor. -Continue topiramate Ppx - Will start after surgery if bleeding controlled. (2) Hypomagnesemia: (3) Diabetes: (4) Severe persistent asthma: (5) Liver cirrhosis secondary to STEVE: (6) Major depressive disorder with psychotic features: (7) Peptic ulcer disease: (8) Blanca's thyroiditis: (9) Controlled type 2 diabetes mellitus, with long-term current use of insulin: (10) GERD (gastroesophageal reflux disease): (11) Seizure disorder: Admission and Anticipated Discharge Date Admission Date: November 02, 2019 Subjective In pain this morning, otherwise no new concerns. Reports no fevers/chills, chest pain, shortness of breath, abdominal pain, nausea, or vomiting. Physical Exam Constitutional: WD/WN, vitals as above + acute distress Eyes: EOM intact bilaterally; no conjunctival abnormality ENMT: external ear and nose normal, oropharynx normal Neck: trachea midline, no thyromegaly normal visual inspection Respiratory: normal respiratory effort, lungs clear to auscultation no respiratory distress Cardiovascular: RRR, no murmur, no edema Gastrointestinal (Abdomen): Inspection/Auscultation: abdomen normal to inspection; abdomen not distended Musculoskeletal: no cyanosis or clubbing, extremities motor strength 5/5 Extremities: + limited ROM of extremities (Right leg) Skin: no rashes, warm and dry Neurologic: moves all extremities and awake Psychiatric: Orientation: alert, oriented to person and cooperative Affect: + tearful affect Results & Data Results & Data ([facility]) Vital Signs (Past 12 Hours) Vital Signs Temp Pulse Pulse Pulse Resp BP BP 11/04/19 15:12 75 11/04/19 14:39 37.1 C 81 18 145/63 H 11/04/19 13:17 36.8 C 71 18 116/69 11/04/19 12:01 37.0 C 73 18 107/67 11/04/19 11:01 37.1 C 77 18 114/70 11/04/19 10:31 36.9 C 74 16 111/65 11/04/19 10:15 36.8 C 77 20 103/60 11/04/19 09:58 37.1 C 95 H 20 125/67 11/04/19 07:31 78 11/04/19 07:11 36.9 C 81 18 112/66 Pulse Ox 11/04/19 15:12 11/04/19 14:39 98 11/04/19 13:17 99 11/04/19 12:01 97 11/04/19 11:01 98 11/04/19 10:31 97 11/04/19 10:15 97 11/04/19 09:58 11/04/19 07:31 11/04/19 07:11 100 PG Care Time/CCT Total # of Minutes Spent Total Time Spent with Patient: Total time spent is greater than 50% in coordination of care (as documented) at patient's floor/unit and/or counseling patient: Coding Level of Care Code 55929 Subseq Hosp Care Lvl 3 Diagnoses Weakness R53.1 Hypomagnesemia E83.42 Diabetes E11.69; Z79.4 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 complication status: with other specified complication 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 snf insulin use: with snf use 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 type: type 2 Severe persistent asthma J45.50 Asthma complication type: uncomplicated Liver cirrhosis secondary to STEVE K75.81; K74.60 Major depressive disorder with psychotic features F32.3 Peptic ulcer disease K27.9 Blanca's thyroiditis E06.3 Controlled type 2 diabetes mellitus, with long-term current use of insulin E11.69; Z79.4 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 complication status: with other specified complication GERD (gastroesophageal reflux disease) K21.9 Esophagitis presence: esophagitis presence not specified Seizure disorder G40.909 (1) Diabetes 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 complication status: with other specified complication 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 intermission coordinator insulin use: with snf use 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 type: type 2 Qualified Code(s): E11.69 - Type 2 diabetes mellitus with other specified complication; Z79.4 - salvage determiner (current) use of insulin (2) Severe persistent asthma Asthma complication type: uncomplicated Qualified Code(s): J45.50 - Severe persistent asthma, uncomplicated (3) Controlled type 2 diabetes mellitus, with long-term current use of insulin 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 complication status: with other specified complication Qualified Code(s): E11.69 - Type 2 diabetes mellitus with other specified complication; Z79.4 - salvage determiner (current) use of insulin (4) GERD (gastroesophageal reflux disease) Esophagitis presence: esophagitis presence not specified Qualified Code(s): K21.9 - Gastro-esophageal reflux disease without esophagitis
[2019-11-04] MEDS ORDERED: fentaNYL citrate 100 MCG/2 ML VIAL ONE (15:41)
[2019-11-04] MEDS ORDERED: ONDANSETRON INJ 2 MG/ML 2 ML VIAL ONE (15:41)
[2019-11-04] MEDS ORDERED: PROPOFOL IV EMULSION 10 MG/ML 20 ML VIAL IV ONE (15:41)
[2019-11-04] MEDS ORDERED: LIDOCAINE HCL 2% 2 ML VIAL/AMP(20MG/ML) INFIL ONE (15:41)
[2019-11-04] MEDS ORDERED: fentaNYL citrate 100 MCG/2 ML VIAL IV PRN (16:13)
[2019-11-04] MEDS ORDERED: ONDANSETRON INJ 2 MG/ML 2 ML VIAL IV PRN ×2 (16:13→20:55)
[2019-11-04] MEDS ORDERED: ATROPINE SULFATE 0.1 MG/ML 10ML SYR IV PRN (16:13)
[2019-11-04] MEDS ORDERED: HYDROmorphone INJ 2 MG/ML SYR/VIAL IV PRN (16:13)
[2019-11-04] MEDS ORDERED: ePHEDrine sulfate 50 MG/ML AMP IV PRN (16:13)
[2019-11-04] MEDS ORDERED: MIDAZOLAM HCL 1 MG/ML 2ML VIAL ONE (16:34)
[2019-11-04] MEDS ORDERED: BUPIVACAINE/EPINEPHRINE 0.25% 1:200,000 30 ML VIAL ONE (17:07)
--- NOTE | 2019-11-04 19:57 | Post Operative Brief Note ---
Immediate Post Op Note v1 Date of Surgery November 04, 2019 Pre & Post Diagnosis Operation Date: 11/04/19 11:10 Pre-Op Diagnosis: Right distal femur fracture Post-Op Diagnosis: Right distal femur fracture I identified the patient and participated in the time-out.: Yes Procedure Operation Date: 11/04/19 11:10 Actual Procedures p Open Reduction Internal Fixation Right Distal Femur Fracture, Removal of hardware(Right) - Stephan Thrasher DO Surgeon Stephan Thrasher DO Lactation Specialist None Estimated Blood Loss 550 Findings Consistent with Post-Op Diagnosis Fluids 2 units PRBC, 1 bag of platelets, 1400 cc LR Specimens None Drains Liu Catheter (16 fr liu catheter inserted by Pat Jiménez without difficulty. Clear yellow urine for return) and Hemovac Drain (10fr round) Anesthesia Type General Complications none Disposition Disposition: Recovery Room Overlapping Procedure I was present for: the critical portions of procedure. I was immediately available: during the entire case. Back up surgeon: was not required during procedure.
--- NOTE | 2019-11-04 19:58 | Operative Report ---
Post Operative Report Pre & Post Diagnosis Operation Date: 11/04/19 11:10 Pre-Op Diagnosis: Right distal femur fracture Post-Op Diagnosis: Right distal femur fracture I identified the patient and participated in the time-out.: Yes Procedure Operation Date: 11/04/19 11:10 Actual Procedures p Open Reduction Internal Fixation Right Distal Femur Fracture, Removal of hardware(Right) - Stephan Thrasher DO Surgeon Stephan Thrasher DO Doors Prefitter None Estimated Blood Loss 550 Findings Consistent with Post-Op Diagnosis Fluids 2 units PRBC, 1 bag of platelets, 1400 cc LR Specimens None Drains Hemovac drain deep to fascia Anesthesia Type General Complications none Disposition Disposition: Recovery Room Indications Patient is a 53-year-old white female known to our practice who was admitted on 10/31/2019 after sustaining a mechanical fall. The patient's was helping the patient from her bedside commode and as she was standing up, she lost her balance and fell. Patient was experiencing weakness and not feeling well overall. She was brought to the emergency room and was admitted by [facility] physician group. Patient was having difficulty ambulating and her asked to have an x-ray of her right leg. She has been having pain and x-rays revealed a distal femur fracture. Her states that she has not r eally ambulated since her inital fall. We have been asked to see her for her distal femur fracture. The patient is a 53-year-old female who presents with displaced rogelio-implant distal one third femur spiral fracture. I indicated the patient for a open reduction internal fixation of right distal femur possible removal of hardware and the risks and benefits were explained in detail which included but not limited to infection, bleeding and ischemic related complications, blood clot, damage to surrounding bone, nerves, vessels, soft tissue, malunion/nonunion, failure of the implants, leg length discrepancy, need for additional surgery, loss of limb and loss of life. The patient was medically stabilized on 11/04/2019 to proceed with surgery. The patient and agreed to proceed with ORIF right distal femur and informed consent was obtained. Description of Procedure Following induction of adequate general anesthesia, the patient's right leg was prepped and draped in usual sterile manner. A timeout was performed, patient identified, site darryl verified. Appropriate IV abx were verified and given. Utilizing c-arm fluoroscopy the fracture site was identified and marked. An esmarch was applied to the leg and tourniquet insufflated to 300mmHg. An incision was made at the level of the fracture along the lateral aspect of the femur. Subcutaneous tissue was sharply dissected, electrocautery was used for hemostasis. Fascia was incised throughout the length of the wound and the vastus lateralis was swept from the posterior iliotibial band with blunt dissection. Subperiosteal dissection was carried out to expose the femoral fracture. The lateral incision was extended both proximally and distally to allow for adequate exposure of the fracture site. Self-retainers were placed to aid in visualization. The fracture site was identified, found to be comminuted with anterior defect. After the fracture site was identified and cleaned of any blood clots and debris using a combination of rotation and longitudinal traction, adequate reduction of the long portion of the fracture was achieved. Fracture reduction and positioning was assessed under C-arm fluoroscopy. Gentle reduction was performed of the fracture site. Near anatomic fracture reduction was confirmed utilizing c-arm fluoroscopy. Next, a 8-hole distal femoral locking plate was placed about the lateral aspect of the femur. Distal locking bolt from previous cephalomedullary nail was removed due to obstructing of lateral plate. The distal locking guide was placed in the anterior and distal screw hole and held provisionally using a K-wire. Adequate positioning of the plate both in the distal and proximal aspects as well as anterior and pos terior were assessed utilizing C-arm fluoroscopy. The plate was adequately seated onto the bone and in good alignment both proximal/distal, anterior/posterior. Next, I turned my attention to the distal aspect of the locking plate. Distal fixation was carried out utilizing 4 - 5.0mm x 75mm screws, 2-5.0 x 70mm screws. Screw position was verified under C-arm fluoroscopy. Next I turned my attention back to the proximal locking plate and 1- 4.5mm x 16mm cortex screw was placed reducing the plate to bone. Next, 1-5.0 x16mm locking screw abd 3-5.0 x 14mm locking screws were placed in a unicortical fashion. Two 1.7mm dall miles cables were placed proximally around the plate and femur and tensioned sequentially in place for added fixation. Final positioning of the plate, screws and cables was confirmed utilizing the c-arm fluoroscopy. The wound was copiously irrigated with sterile saline solution with bacitracin. The rogelio-incisional soft tissue was injected utilizing 30mL .25 marcaine with epi. Hemovac drain was placed deep to fascial layer. Fascia was closed using #1 Vicryl, subcutaneous tissue was closed using 2-0 Vicryl, and skin was closed with jerri. Sterile dressing of xeroform, 4x4s, ABDs, webrill and christelle wrap was applied. Patient was placed in a knee immobilizer at this time. The patient was awoken while in the OR and was transported to PACU in stable condition and was without apparent complications. The patient tolerated the procedure well. I attest to the content of the Intraoperative Record and any orders documented therein. Any exceptions are noted below.
[2019-11-04] MEDS: ALBUT/IPRATROP 3MG/0.5MG NEB 3 ML VIAL INH PRN (20:24)
--- NOTE | 2019-11-04 20:24 | Fluoroscopy Report ---
FL femur RT 2V CLINICAL HISTORY: RT DISTAL FX FEMUR COMPARISON STUDY: 11/02/2019 FLUOROSCOPY TIME: 1 minute 21 seconds NUMBER OF FLUOROSCOPIC IMAGES: 3 FINDINGS: Image intensifier support for open reduction internal fixation of the right femur IMPRESSION: Image intensifier support for open reduction internal fixation of the right femur ACT 112: Negative or not required by law. The above report was generated using voice recognition software. It may contain grammatical, syntax or spelling errors. Electronically signed by: Kenroy Yates M.D. 11/04/2019 8:23 PM
--- NOTE | 2019-11-04 20:48 | Anesthesiology Progress Note ---
Date of Service November 04, 2019 Anesthesia Post Procedure Vital Signs Vital Signs: Temp Pulse Pulse Pulse Resp BP BP 11/04/19 20:40 96.8 F L 94 H 20 126/105 H 11/04/19 20:30 96.8 F L 90 18 129/54 L 11/04/19 20:20 96.8 F L 79 23 135/71 11/04/19 20:10 96.8 F L 84 20 166/54 H 11/04/19 20:00 97.3 F L 88 20 148/64 H 11/04/19 15:12 75 11/04/19 14:39 98.8 F 81 18 145/63 H 11/04/19 13:17 98.2 F 71 18 116/69 11/04/19 12:01 98.6 F 73 18 107/67 11/04/19 11:01 98.8 F 77 18 114/70 11/04/19 10:31 98.4 F 74 16 111/65 11/04/19 10:15 98.2 F 77 20 103/60 11/04/19 09:58 98.8 F 95 H 20 125/67 11/04/19 07:31 78 11/04/19 07:11 98.4 F 81 18 112/66 11/03/19 23:59 89 11/03/19 22:00 99.5 F 88 20 110/63 11/03/19 21:48 81 18 Pulse Ox 11/04/19 20:40 96 11/04/19 20:30 100 11/04/19 20:20 100 11/04/19 20:10 100 11/04/19 20:00 100 11/04/19 15:12 11/04/19 14:39 98 11/04/19 13:17 99 11/04/19 12:01 97 11/04/19 11:01 98 11/04/19 10:31 97 11/04/19 10:15 97 11/04/19 09:58 11/04/19 07:31 11/04/19 07:11 100 11/03/19 23:59 11/03/19 22:00 97 11/03/19 21:48 96 Pain Intensity Right Leg: Pain Intensity: 8 Right Hip: Pain Intensity: 10 Transfer of Care Handoff Completed per policy Notes Mental Status: alert / awake / arousable and participated in evaluation Patient Amnestic to Procedure: Yes Nausea / Vomiting: adequately controlled Pain: adequately controlled Airway Patency, RR, SpO2: stable & adequate BP & HR: stable & adequate Hydration State: stable & adequate Anesthetic Complications: no major complications apparent and Pt Satisfied with anesthetic care
[2019-11-04] MEDS ORDERED: SODIUM CHLORIDE 0.9% 1000ML 1,000 ML IV SCH (20:55)
[2019-11-04] MEDS ORDERED: bisacodyL 10 MG SUPP PR PRN (20:55)
[2019-11-04] MEDS ORDERED: MAGNESIUM HYDROXIDE SUSP 30 ML UDC PO PRN (20:55)
[2019-11-04] MEDS ORDERED: NALOXONE HCL 0.4 MG/1 ML VIAL/CARP IV PRN (20:55)
[2019-11-04] MEDS: DOCUSATE SODIUM 100 MG CAP PO SCH (21:14)
[2019-11-04] MEDS: SENNA 8.6 MG TAB PO SCH (21:14)
[2019-11-04] MEDS ORDERED: ALBUT/IPRATROP 3MG/0.5MG NEB 3 ML VIAL NEB STA (21:33)
[2019-11-04] MEDS: ACETAMINOPHEN 500 MG TAB PO SCH (22:00)
--- NOTE | 2019-11-04 22:29 | Orthopedic Progress Note ---
Date of Service November 04, 2019 Assessment & Plan (1) Closed fracture of right distal femur: s/p ORIF Right distal femur, BUBBA -clinda x 24 -DVT ppx: SCDs, TEDs, Lovenox -NWB RLE -PT/OT -Maintain KI -Monitor drain output -PO XR pending -am labs Admission and Anticipated Discharge Date Admission Date: November 02, 2019 Subjective Post Operative Progress Note Patient seen in PACU, comfortable, denies complaints, pain well controlled, no acute issues. Review of Systems Review of Systems: All systems reviewed & are unremarkable except as noted in HPI & below Constitutional: as per Subjective / HPI Physical Exam Physical Exam: RLE NVSI +EHL/FHL SILT grossly, +2 DP pulse, compartments soft NT, dressing cdi. Constitutional: WD/WN, vitals as above Results & Data ([facility]) Vital Signs (Past 12 Hours) Vital Signs Temp Pulse Pulse Pulse Resp BP BP 11/04/19 22:00 36.7 C 93 H 18 115/64 11/04/19 21:53 87 18 11/04/19 21:28 36.8 C 91 H 18 117/70 11/04/19 20:50 36.0 C L 89 25 H 142/44 H 11/04/19 20:40 36.0 C L 94 H 20 126/105 H 11/04/19 20:30 36.0 C L 90 18 129/54 L 11/04/19 20:20 36.0 C L 79 23 135/71 11/04/19 20:10 36.0 C L 84 20 166/54 H 11/04/19 20:00 36.3 C L 88 20 148/64 H 11/04/19 15:12 75 11/04/19 14:39 37.1 C 81 18 145/63 H 11/04/19 13:17 36.8 C 71 18 116/69 11/04/19 12:01 37.0 C 73 18 107/67 11/04/19 11:01 37.1 C 77 18 114/70 11/04/19 10:31 36.9 C 74 16 111/65 Pulse Ox 11/04/19 22:00 99 11/04/19 21:53 99 11/04/19 21:28 99 11/04/19 20:50 99 11/04/19 20:40 96 11/04/19 20:30 100 11/04/19 20:20 100 11/04/19 20:10 100 11/04/19 20:00 100 11/04/19 15:12 11/04/19 14:39 98 11/04/19 13:17 99 11/04/19 12:01 97 11/04/19 11:01 98 11/04/19 10:31 97
[2019-11-04] MEDS: CLINDAMYCIN 600 MG in DEXTROSE 5% 50 ML IV SCH (23:39)
[2019-11-05] MEDS: LEVOTHYROXINE SODIUM 50 MCG TABLET PO SCH (05:37)
[2019-11-05] MEDS: ACETAMINOPHEN 500 MG TAB PO SCH ×3 (05:37→21:05)
[2019-11-05 06:34] LABS: Hematocrit (blood only) 29.9 % (37-47); Hemoglobin 10.5 g/dL (12.0-16.0); Mean Corpuscular Hemoglobin 32.9 pg (25-34); Mean Corpuscular Hgb Conc 35.1 g/dL (32-36); Mean Corpuscular Volume 93.7 fL (80-100); Mean Platelet Volume 9.6 fL (7.4-10.4); Platelet Count 118 K/uL (130-400); RDW Coefficient of Variation 17.1 % (11.5-14.5); RDW Standard Deviation 57.1 fL (36.4-46.3); Red Blood Count 3.19 M/uL (4.2-5.4); White Blood Count 4.83 K/uL (4.8-10.8)
[2019-11-05 06:38] LABS: INR 1.3 (0.9-1.1)
--- NOTE | 2019-11-05 06:46 | XRay Report ---
XR femur RT 2V routine CLINICAL HISTORY: post op ORIF distal femur, in PACU COMPARISON: 11/02/2019 DISCUSSION: Again evident is internally fixated intertrochanteric right hip fracture with a femoral n reggie nail and interlocking intramedullary vijaya. There is been interval internal fixation of the distal femoral fracture with a lateral metallic plate and cerclage wires and multiple transverse screws. IMPRESSION: Interval internal fixation of the previously described distal femoral fracture ACT 112: Negative or not required by law. Electronically signed by: Bran Hernandez M.D. 11/05/2019 6:44 AM
[2019-11-05 06:58] LABS: Albumin Level 2.2 gm/dl (3.4-5.0); BUN Creatinine Ratio 16.4 (10-20); Calcium 6.6 mg/dl (8.5-10.1); Creatinine Clr Calc Pharmacy 165.7 ml/min; Est GFR (African American) 131.6; Est GFR (Non-African American) 113.6; Magnesium 1.9 mg/dl (1.8-2.4); Potassium 4.1 mmol/L (3.5-5.1)
[2019-11-05 07:05] LABS: Bilirubin,Total 4.2 mg/dl (0.2-1); Globulin 2.2 gm/dl (2.5-4.0); Phosphorus 2.5 mg/dl (2.5-4.9); Total Protein 4.4 gm/dl (6.4-8.2)
--- NOTE | 2019-11-05 07:41 | Orthopedic Progress Note ---
Date of Service November 05, 2019 Assessment & Plan (1) Closed fracture of right distal femur: s/p ORIF Right distal femur, BUBBA POD#1 -clinda x 24 -DVT ppx: SCDs, TEDs, Lovenox -NWB RLE -PT/OT -Maintain KI -Monitor drain output -PO XR demonstrates a well aligned well fixed implant, anatomic alignment of fracture. -am labs - as above, hgb 10.5 Admission and Anticipated Discharge Date Admission Date: November 02, 2019 Subjective Post Operative Progress Note Patient seen laying in bed, comfortable, requesting morphine, no acute issues. Denies F/C/N/V/SOB/CP. Review of Systems Review of Systems: All systems reviewed & are unremarkable except as noted in HPI & below Constitutional: as per Subjective / HPI Physical Exam Physical Exam: RLE NVSI +EHL/FHL SILT grossly, +2 DP pulse, compartments soft NT, dressing cdi. Constitutional: WD/WN, vitals as above Results & Data ([facility]) Vital Signs (Past 12 Hours) Vital Signs Temp Pulse Pulse Pulse Resp BP Pulse Ox 11/05/19 07:31 37.6 C H 86 20 123/77 98 11/05/19 03:38 36.8 C 82 18 110/71 97 11/04/19 23:59 95 H 11/04/19 23:53 36.7 C 88 18 113/61 95 11/04/19 22:00 36.7 C 93 H 18 115/64 99 11/04/19 21:53 87 18 99 11/04/19 21:28 36.8 C 91 H 18 117/70 99 11/04/19 20:50 36.0 C L 89 25 H 142/44 H 99 11/04/19 20:40 36.0 C L 94 H 20 126/105 H 96 11/04/19 20:30 36.0 C L 90 18 129/54 L 100 11/04/19 20:20 36.0 C L 79 23 135/71 100 11/04/19 20:10 36.0 C L 84 20 166/54 H 100 11/04/19 20:00 36.3 C L 88 20 148/64 H 100 Laboratory Results 11/05/19 11/05/19 11/05/19 Range/Units 05:55 05:55 05:55 WBC 4.83 (4.8-10.8) K/uL RBC 3.19 L (4.2-5.4) M/uL Hgb 10.5 L (12.0-16.0) g/dL Hct 29.9 L (37-47) % MCV 93.7 (80-100) fL MCH 32.9 (25-34) pg MCHC 35.1 (32-36) g/dL RDW Std Deviation 57.1 H (36.4-46.3) fL RDW Coeff of Irina 17.1 H (11.5-14.5) % Plt Count 118 L D (130-400) K/uL MPV 9.6 (7.4-10.4) fL Platelet Estimate (Normal) PT 14.0 H (9.0-12.0) Seconds INR 1.3 H (0.9-1.1) Sodium 137 (136-145) mmol/L Potassium 4.1 (3.5-5.1) mmol/L Chloride 109 H (98-107) mmol/L Carbon Dioxide 22 (21-32) mmol/L Anion Gap 6.0 (3-11) BUN 8 (7-18) mg/dl Creatinine 0.46 L (0.6-1.2) mg/dl Est Cr Clr Drug Dosing 165.7 ml/min Est GFR ( Amer) 131.6 Est GFR (Non-Af Amer) 113.6 BUN/Creatinine Ratio 16.4 (10-20) Glucose 123 H (70-99) mg/dl POC Glucose (70-99) mg/dl Calcium 6.6 L (8.5-10.1) mg/dl Phosphorus 2.5 (2.5-4.9) mg/dl Magnesium 1.9 (1.8-2.4) mg/dl Total Bilirubin 4.2 H D (0.2-1) mg/dl AST 51 H (15-37) U/L ALT 44 (12-78) U/L Alkaline Phosphatase 84 (45-117) U/L Total Protein 4.4 L (6.4-8.2) gm/dl Albumin 2.2 L (3.4-5.0) gm/dl Globulin 2.2 L (2.5-4.0) gm/dl Albumin/Globulin Ratio 1.0 (0.9-2) Blood Type Antibody Screen Crossmatch 11/04/19 11/04/19 11/04/19 Range/Units 21:12 14:13 11:35 WBC (4.8-10.8) K/uL RBC (4.2-5.4) M/uL Hgb (12.0-16.0) g/dL Hct (37-47) % MCV (80-100) fL MCH (25-34) pg MCHC (32-36) g/dL RDW Std Deviation (36.4-46.3) fL RDW Coeff of Irina (11.5-14.5) % Plt Count (130-400) K/uL MPV (7.4-10.4) fL Platelet Estimate (Normal) PT (9.0-12.0) Seconds INR (0.9-1.1) Sodium (136-145) mmol/L Potassium (3.5-5.1) mmol/L Chloride (98-107) mmol/L Carbon Dioxide (21-32) mmol/L Anion Gap (3-11) BUN (7-18) mg/dl Creatinine (0.6-1.2) mg/dl Est Cr Clr Drug Dosing ml/min Est GFR ( Amer) Est GFR (Non-Af Amer) BUN/Creatinine Ratio (10-20) Glucose (70-99) mg/dl POC Glucose 131 H 120 H 116 H (70-99) mg/dl Calcium (8.5-10.1) mg/dl Phosphorus (2.5-4.9) mg/dl Magnesium (1.8-2.4) mg/dl Total Bilirubin (0.2-1) mg/dl AST (15-37) U/L ALT (12-78) U/L Alkaline Phosphatase (45-117) U/L Total Protein (6.4-8.2) gm/dl Albumin (3.4-5.0) gm/dl Globulin (2.5-4.0) gm/dl Albumin/Globulin Ratio (0.9-2) Blood Type Antibody Screen Crossmatch 11/04/19 11/03/19 Range/Units 05:41 07:16 WBC (4.8-10.8) K/uL RBC (4.2-5.4) M/uL Hgb (12.0-16.0) g/dL Hct (37-47) % MCV (80-100) fL MCH (25-34) pg MCHC (32-36) g/dL RDW Std Deviation (36.4-46.3) fL RDW Coeff of Irina (11.5-14.5) % Plt Count (130-400) K/uL MPV (7.4-10.4) fL Platelet Estimate Decreased L (Normal) PT (9.0-12.0) Seconds INR (0.9-1.1) Sodium (136-145) mmol/L Potassium (3.5-5.1) mmol/L Chloride (98-107) mmol/L Carbon Dioxide (21-32) mmol/L Anion Gap (3-11) BUN (7-18) mg/dl Creatinine (0.6-1.2) mg/dl Est Cr Clr Drug Dosing ml/min Est GFR ( Amer) Est GFR (Non-Af Amer) BUN/Creatinine Ratio (10-20) Glucose (70-99) mg/dl POC Glucose (70-99) mg/dl Calcium (8.5-10.1) mg/dl Phosphorus (2.5-4.9) mg/dl Magnesium (1.8-2.4) mg/dl Total Bilirubin (0.2-1) mg/dl AST (15-37) U/L ALT (12-78) U/L Alkaline Phosphatase (45-117) U/L Total Protein (6.4-8.2) gm/dl Albumin (3.4-5.0) gm/dl Globulin (2.5-4.0) gm/dl Albumin/Globulin Ratio (0.9-2) Blood Type O Positive Antibody Screen NEGATIVE Crossmatch See Detail
--- NOTE | 2019-11-05 08:11 | Anesthesiology Progress Note ---
Date of Service November 05, 2019 Anesthesia Post Procedure Vital Signs Vital Signs: Temp Pulse Pulse Pulse Resp BP BP 11/05/19 07:31 37.6 C H 86 20 123/77 11/05/19 03:38 36.8 C 82 18 110/71 11/04/19 23:59 95 H 11/04/19 23:53 36.7 C 88 18 113/61 11/04/19 22:00 36.7 C 93 H 18 115/64 11/04/19 21:53 87 18 11/04/19 21:28 36.8 C 91 H 18 117/70 11/04/19 20:50 36.0 C L 89 25 H 142/44 H 11/04/19 20:40 36.0 C L 94 H 20 126/105 H 11/04/19 20:30 36.0 C L 90 18 129/54 L 11/04/19 20:20 36.0 C L 79 23 135/71 11/04/19 20:10 36.0 C L 84 20 166/54 H 11/04/19 20:00 36.3 C L 88 20 148/64 H 11/04/19 15:12 75 11/04/19 14:39 37.1 C 81 18 145/63 H 11/04/19 13:17 36.8 C 71 18 116/69 11/04/19 12:01 37.0 C 73 18 107/67 11/04/19 11:01 37.1 C 77 18 114/70 11/04/19 10:31 36.9 C 74 16 111/65 11/04/19 10:15 36.8 C 77 20 103/60 11/04/19 09:58 37.1 C 95 H 20 125/67 Pulse Ox 11/05/19 07:31 98 11/05/19 03:38 97 11/04/19 23:59 11/04/19 23:53 95 11/04/19 22:00 99 11/04/19 21:53 99 11/04/19 21:28 99 11/04/19 20:50 99 11/04/19 20:40 96 11/04/19 20:30 100 11/04/19 20:20 100 11/04/19 20:10 100 11/04/19 20:00 100 11/04/19 15:12 11/04/19 14:39 98 11/04/19 13:17 99 11/04/19 12:01 97 11/04/19 11:01 98 11/04/19 10:31 97 11/04/19 10:15 97 11/04/19 09:58 Notes Mental Status: alert / awake / arousable and participated in evaluation Nausea / Vomiting: adequately controlled Pain: adequately controlled Airway Patency, RR, SpO2: stable & adequate BP & HR: stable & adequate Hydration State: stable & adequate Anesthetic Complications: no major complications apparent
[2019-11-05] MEDS: RIFAXIMIN 550 MG TABLET PO SCH ×2 (09:12→21:03)
[2019-11-05] MEDS: LORATADINE 10 MG TAB PO SCH (09:12)
[2019-11-05] MEDS: OXcarbazepine 150 MG TABLET PO SCH ×2 (09:13→21:04)
[2019-11-05] MEDS: PANTOprazole 40 MG TAB PO SCH (09:13)
[2019-11-05] MEDS: TOPIRAMATE 100 MG TAB PO SCH ×2 (09:14→21:03)
[2019-11-05] MEDS: SPIRONOLACTONE 25 MG TAB PO SCH (09:14)
[2019-11-05] MEDS: levETIRAcetam 500 MG TAB PO SCH ×2 (09:14→21:03)
[2019-11-05] MEDS: ENOXAPARIN INJ 40 MG/0.4 ML SYR SQ SCH (09:15)
[2019-11-05] MEDS: CLINDAMYCIN 600 MG in DEXTROSE 5% 50 ML IV SCH (09:16)
[2019-11-05] MEDS: INSULIN ASPART 100 UNITS/ML 3 ML PEN SC SCH ×4 (09:18→21:06)
[2019-11-05] MEDS: INSULIN DEGLUDEC 100 UNITS/ML SQ SCH (09:19)
[2019-11-05] MEDS: MULTIVITAMIN TAB PO SCH ×2 (09:20→11:30)
[2019-11-05] MEDS: DOCUSATE SODIUM 100 MG CAP PO SCH ×2 (09:54→21:10)
[2019-11-05] MEDS: HYDROmorphone INJ 0.5 MG/0.5 ML SYR IV PRN (09:54)
[2019-11-05] MEDS: CHOLECALCIFEROL 1,000 UNITS 25 MCG TAB PO SCH (11:28)
[2019-11-05] MEDS: VITAMIN B COMPLEX TAB PO SCH (11:29)
[2019-11-05] MEDS: ZINC SULFATE 220 MG CAPSULE PO SCH (11:29)
[2019-11-05] MEDS: MAGNESIUM CHLORIDE 64MG DELAYED REL TAB PO SCH (11:29)
--- NOTE | 2019-11-05 11:30 | Hospitalist Progress Note ---
Date of Service November 05, 2019 Assessment & Plan (1) Closed fracture of right distal femur: Periprosthetic fracture around previous IM nail in right femur, as a result of mechanical fall at home. Right hip x-rays on 11/01 show: "Acute, distracted, and angulated spiral fracture of the distal femoral shaft around the inferior end of the intramedullary nail." - S/p right ORIF with Dr. Thrasher on 11/03. - Non-weightbearing right leg. - Pain control - Expected acute blood loss anemia in setting of femoral fracture; received a total of 4 units of PRBCs rogelio-operatively. Hgb is 10.5 today. (2) Weakness: Due to fall, broken femur, and anemia. Cultures negative x 48 hours. Labs within normal limits apart from anemia as above. - PT/OT as above - CM for placement. Chronic gait disorder - patient mostly in wheelchair at home. - Wheelchair and walker as needed - Patient has home health nurse - PT/OT ordered in the hospital. (3) Liver cirrhosis secondary to STEVE: Patient with liver cirrhosis secondary to STEVE, portal hypertension. Patient follows with gastroenterology, last seen by Dr. Toledo on 04/20/19. HCV screening has been completed and is negative. AFP on 03/09/2019 = 2.6. INR = 1.4 - Continue lactulose & rifaximin - Continue zinc supplementation 50 mg daily - Continue Aldactone for lower extremity edema - Low sodium diet as tolerated - Avoid hepatotoxic agents (4) Seizure disorder: Patient with history of seizure. She follows with neurology, last seen on 04/02/19. EEG completed in May 2018 revealed a generalized spike and slow wave abnormality consistent with an underlying generalized seizure disorder. Patient had an MRI brain completed in October 2017 which was unremarkable. Patient failed VNS placement in the past, device was explanted. Presently on topiramate, Trileptal and Keppra. She was recently seen in the ER on 05/17/19 with report of seizures x 4 at home with a 5th seizure witnessed in triage - shaking her head and upper extremities. After consultation with Neurology her Oxcarbazepine was increased to 600mg po BID. - Continue topiramate 100 mg p.o. twice daily - Continue Trileptal 300 mg p.o. every morning and 600 mg p.o. nightly - Continue Keppra 1500 mg p.o. twice daily (5) Diabetes: Last hemoglobin A1c=4.6% on 10/20/19. Patient follows with Endocrinology/Diabetes education. - Continue Tresiba 12 units subcu every morning - Sliding scale insulin - Sugars 120 - 170 in last 24 hours. (6) Severe persistent asthma: History of severe persistent asthma. She has seen Pulmonary as well as Allergy/Immunology in the past. Spirometry performed on 04/23/19 with FVC=1.37, 38% predicted. FEV1=1.18, 40% predicted and FEV1/FVC=86%. Suggestive of restrictive process vs obstruction with air trapping. Study limited. Formal PFTs ordered, not yet completed. - Continue home medications (7) Major depressive disorder with psychotic features: Chronic. Stable. Patient presently not on any medications. She has been evaluated by psychiatry in the past. 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 - Continue Synthroid (9) GERD (gastroesophageal reflux disease): Chronic. Stable. - Continue PPI (10) Hx of migraines: Patient with episodic migraines. Well-controlled. - Continue topiramate - Patient has used Maxalt in the past with success for migraine relief if needed (11) DVT prophylaxis: Lovenox 40 mg SQ daily per surgery Admission and Anticipated Discharge Date Admission Date: November 02, 2019 Subjective In pain in the surgical site as well as in the right hand where her IV is. Reports no fevers/chills, chest pain, shortness of breath, abdominal pain, nausea, or vomiting. Physical Exam Constitutional: WD/WN, vitals as above + acute distress Eyes: EOM intact bilaterally; no conjunctival abnormality ENMT: external ear and nose normal, oropharynx normal Neck: trachea midline, no thyromegaly normal visual inspection Respiratory: normal respiratory effort, lungs clear to auscultation no respiratory distress Cardiovascular: RRR, no murmur, no edema Gastrointestinal (Abdomen): Inspection/Auscultation: abdomen normal to inspection; abdomen not distended Musculoskeletal: no cyanosis or clubbing, extremities motor strength 5/5 Extremities: + limited ROM of extremities (Right leg); + extremities abnormal to inspection (Drain from right leg with sanguinous output.) Skin: no rashes, warm and dry Neurologic: moves all extremities and awake Psychiatric: Orientation: alert, oriented to person and cooperative Affect: + tearful affect Results & Data Results & Data ([facility]) Vital Signs (Past 12 Hours) Vital Signs Temp Pulse Pulse Pulse Resp BP Pulse Ox 11/05/19 07:31 37.6 C H 86 20 123/77 98 11/05/19 03:38 36.8 C 82 18 110/71 97 11/04/19 23:59 95 H 11/04/19 23:53 36.7 C 88 18 113/61 95 PG Care Time/CCT Total # of Minutes Spent Total Time Spent with Patient: Total time spent is greater than 50% in coordination of care (as documented) at patient's floor/unit and/or counseling patient: Coding Level of Care Code 99910 Subseq Hosp Care Lvl 2 Diagnoses Closed fracture of right distal femur S72.401A Weakness R53.1 Liver cirrhosis secondary to STEVE K75.81; K74.60 Seizure disorder G40.909 Diabetes E11.69; Z79.4 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 complication status: with other specified complication 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 prison insulin use: with long term acute care registered nurse use 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 type: type 2 Severe persistent asthma J45.50 Asthma complication type: uncomplicated Major depressive disorder with psychotic features F32.3 Blanca's thyroiditis E06.3 GERD (gastroesophageal reflux disease) K21.9 Esophagitis presence: esophagitis presence not specified Hx of migraines Z86.69 DVT prophylaxis Z29.9 (1) Diabetes 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 complication status: with other specified complication 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 long term acute care registered nurse insulin use: with long term acute care registered nurse use 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 type: type 2 Qualified Code(s): E11.69 - Type 2 diabetes mellitus with other specified complication; Z79.4 - FDC (current) use of insulin (2) Severe persistent asthma Asthma complication type: uncomplicated Qualified Code(s): J45.50 - Severe persistent asthma, uncomplicated (3) GERD (gastroesophageal reflux disease) Esophagitis presence: esophagitis presence not specified Qualified Code(s): K21.9 - Gastro-esophageal reflux disease without esophagitis
[2019-11-05] MEDS: HEPARIN 100 UNIT/ML 5ML FLUSH FLUSH PRN (11:35)
[2019-11-05] MEDS: LACTULOSE SYRUP 30 GM/45 ML UDP PO SCH (12:25)
[2019-11-05] MEDS: SENNA 8.6 MG TAB PO SCH (21:03)
[2019-11-06] MEDS: ACETAMINOPHEN 500 MG TAB PO SCH ×3 (06:08→22:20)
[2019-11-06] MEDS: LEVOTHYROXINE SODIUM 50 MCG TABLET PO SCH (06:09)
[2019-11-06] MEDS: HEPARIN 100 UNIT/ML 5ML FLUSH FLUSH PRN ×2 (06:10→16:49)
[2019-11-06 06:23] LABS: Hematocrit (blood only) 25.6 % (37-47); Hemoglobin 9.4 g/dL (12.0-16.0); Mean Corpuscular Hemoglobin 35.3 pg (25-34); Mean Corpuscular Hgb Conc 36.7 g/dL (32-36); Mean Corpuscular Volume 96.2 fL (80-100); Mean Platelet Volume 9.4 fL (7.4-10.4); Platelet Count 100 K/uL (130-400); RDW Coefficient of Variation 18.2 % (11.5-14.5); RDW Standard Deviation 60.6 fL (36.4-46.3); Red Blood Count 2.66 M/uL (4.2-5.4); White Blood Count 4.11 K/uL (4.8-10.8)
[2019-11-06 06:49] LABS: Albumin Level 1.9 gm/dl (3.4-5.0); BUN Creatinine Ratio 19.3 (10-20); Calcium 7.4 mg/dl (8.5-10.1); Creatinine Clr Calc Pharmacy 164.8 ml/min; Est GFR (African American) 132.6; Est GFR (Non-African American) 114.4; Potassium 3.8 mmol/L (3.5-5.1)
[2019-11-06 06:52] LABS: Albumin Globulin Ratio 0.8 (0.9-2); Bilirubin,Total 2.2 mg/dl (0.2-1); Globulin 2.3 gm/dl (2.5-4.0); Total Protein 4.2 gm/dl (6.4-8.2)
[2019-11-06] MEDS: ENOXAPARIN INJ 40 MG/0.4 ML SYR SQ SCH (07:36)
[2019-11-06] MEDS: RIFAXIMIN 550 MG TABLET PO SCH ×2 (07:37→20:48)
[2019-11-06] MEDS: LACTULOSE SYRUP 30 GM/45 ML UDP PO SCH (07:37)
[2019-11-06] MEDS: PANTOprazole 40 MG TAB PO SCH (07:37)
[2019-11-06] MEDS: levETIRAcetam 500 MG TAB PO SCH ×2 (07:37→20:48)
[2019-11-06] MEDS: LORATADINE 10 MG TAB PO SCH (07:38)
[2019-11-06] MEDS: OXcarbazepine 150 MG TABLET PO SCH ×2 (07:38→20:49)
[2019-11-06] MEDS: MULTIVITAMIN TAB PO SCH ×2 (07:38→11:51)
[2019-11-06] MEDS: SPIRONOLACTONE 25 MG TAB PO SCH (07:39)
[2019-11-06] MEDS: TOPIRAMATE 100 MG TAB PO SCH ×2 (07:40→20:47)
[2019-11-06] MEDS: DOCUSATE SODIUM 100 MG CAP PO SCH ×2 (07:40→20:51)
[2019-11-06] MEDS: OXYCODONE HCL IR 5 MG TAB (IMMEDIATE RELEASE) PO PRN ×3 (09:16→20:46)
[2019-11-06] MEDS: INSULIN ASPART 100 UNITS/ML 3 ML PEN SC SCH ×4 (09:19→20:52)
[2019-11-06] MEDS: INSULIN DEGLUDEC 100 UNITS/ML SQ SCH (09:20)
--- NOTE | 2019-11-06 09:21 | Orthopedic Progress Note ---
Date of Service November 06, 2019 Assessment & Plan (1) Closed fracture of right distal femur: s/p ORIF Right distal femur, BUBBA POD#2 -DVT ppx: SCDs, TEDs, Lovenox -NWB RLE -PT/OT -Maintain KI -Monitor drain output -am labs - H/H to 9.4/ 25.6 Admission and Anticipated Discharge Date Admission Date: November 02, 2019 Supervising Physician Co-Signing Physician Notes Patient seen and examined agree with above assessment plan. Post Operative Progress Note Patient seen laying in bed, comfortable at rest, c/o pain when awoken, no acute issues. RLE NVSI +EHL/FHL/TA/GS SILT grossly, +2 DP pulse, compartments soft NT, dressing cdi. drain intact s/p ORIF Right distal femur, BUBBA POD#2 -DVT ppx: SCDs, TEDs, Lovenox -NWB RLE -PT/OT -Maintain KI -Monitor drain output - will DC -am labs - H/H to 9.4/ 25.6 Subjective Post Operative Progress Note Patient seen laying in bed, sleeping. quickly falls back to sleep Review of Systems Review of Systems: All systems reviewed & are unremarkable except as noted in HPI & below Constitutional: as per Subjective / HPI Physical Exam Physical Exam: Dressing in place. Hemovac draining. NVI Results & Data ([facility]) Vital Signs (Past 12 Hours) Vital Signs Temp Pulse Pulse Pulse Resp BP Pulse Ox 11/06/19 07:53 36.7 C 103 H 18 122/63 94 11/06/19 04:14 36.2 C L 75 18 108/66 97 11/05/19 23:59 91 H 11/05/19 23:48 37.4 C 85 18 117/64 95 Laboratory Results 11/06/19 11/06/19 11/06/19 Range/Units 07:53 06:10 06:10 WBC 4.11 L (4.8-10.8) K/uL RBC 2.66 L (4.2-5.4) M/uL Hgb 9.4 L (12.0-16.0) g/dL Hct 25.6 L (37-47) % MCV 96.2 (80-100) fL MCH 35.3 H (25-34) pg MCHC 36.7 H (32-36) g/dL RDW Std Deviation 60.6 H (36.4-46.3) fL RDW Coeff of Irina 18.2 H (11.5-14.5) % Plt Count 100 L (130-400) K/uL MPV 9.4 (7.4-10.4) fL Sodium 138 (136-145) mmol/L Potassium 3.8 (3.5-5.1) mmol/L Chloride 111 H (98-107) mmol/L Carbon Dioxide 22 (21-32) mmol/L Anion Gap 5.0 (3-11) BUN 9 (7-18) mg/dl Creatinine 0.45 L (0.6-1.2) mg/dl Est Cr Clr Drug Dosing 164.8 ml/min Est GFR ( Amer) 132.6 Est GFR (Non-Af Amer) 114.4 BUN/Creatinine Ratio 19.3 (10-20) Glucose 193 H (70-99) mg/dl POC Glucose 214 H (70-99) mg/dl Calcium 7.4 L (8.5-10.1) mg/dl Total Bilirubin 2.2 H (0.2-1) mg/dl AST 40 H (15-37) U/L ALT 35 (12-78) U/L Alkaline Phosphatase 149 H (45-117) U/L Total Protein 4.2 L (6.4-8.2) gm/dl Albumin 1.9 L (3.4-5.0) gm/dl Globulin 2.3 L (2.5-4.0) gm/dl Albumin/Globulin Ratio 0.8 L (0.9-2) Crossmatch 11/05/19 11/05/19 11/05/19 Range/Units 20:48 16:20 11:24 WBC (4.8-10.8) K/uL RBC (4.2-5.4) M/uL Hgb (12.0-16.0) g/dL Hct (37-47) % MCV (80-100) fL MCH (25-34) pg MCHC (32-36) g/dL RDW Std Deviation (36.4-46.3) fL RDW Coeff of Irina (11.5-14.5) % Plt Count (130-400) K/uL MPV (7.4-10.4) fL Sodium (136-145) mmol/L Potassium (3.5-5.1) mmol/L Chloride (98-107) mmol/L Carbon Dioxide (21-32) mmol/L Anion Gap (3-11) BUN (7-18) mg/dl Creatinine (0.6-1.2) mg/dl Est Cr Clr Drug Dosing ml/min Est GFR ( Amer) Est GFR (Non-Af Amer) BUN/Creatinine Ratio (10-20) Glucose (70-99) mg/dl POC Glucose 172 H 213 H 171 H (70-99) mg/dl Calcium (8.5-10.1) mg/dl Total Bilirubin (0.2-1) mg/dl AST (15-37) U/L ALT (12-78) U/L Alkaline Phosphatase (45-117) U/L Total Protein (6.4-8.2) gm/dl Albumin (3.4-5.0) gm/dl Globulin (2.5-4.0) gm/dl Albumin/Globulin Ratio (0.9-2) Crossmatch 11/03/19 Range/Units 07:16 WBC (4.8-10.8) K/uL RBC (4.2-5.4) M/uL Hgb (12.0-16.0) g/dL Hct (37-47) % MCV (80-100) fL MCH (25-34) pg MCHC (32-36) g/dL RDW Std Deviation (36.4-46.3) fL RDW Coeff of Irina (11.5-14.5) % Plt Count (130-400) K/uL MPV (7.4-10.4) fL Sodium (136-145) mmol/L Potassium (3.5-5.1) mmol/L Chloride (98-107) mmol/L Carbon Dioxide (21-32) mmol/L Anion Gap (3-11) BUN (7-18) mg/dl Creatinine (0.6-1.2) mg/dl Est Cr Clr Drug Dosing ml/min Est GFR ( Amer) Est GFR (Non-Af Amer) BUN/Creatinine Ratio (10-20) Glucose (70-99) mg/dl POC Glucose (70-99) mg/dl Calcium (8.5-10.1) mg/dl Total Bilirubin (0.2-1) mg/dl AST (15-37) U/L ALT (12-78) U/L Alkaline Phosphatase (45-117) U/L Total Protein (6.4-8.2) gm/dl Albumin (3.4-5.0) gm/dl Globulin (2.5-4.0) gm/dl Albumin/Globulin Ratio (0.9-2) Crossmatch See Detail
[2019-11-06] MEDS: CHOLECALCIFEROL 1,000 UNITS 25 MCG TAB PO SCH (11:49)
[2019-11-06] MEDS: VITAMIN B COMPLEX TAB PO SCH (11:50)
[2019-11-06] MEDS: MAGNESIUM CHLORIDE 64MG DELAYED REL TAB PO SCH (11:50)
[2019-11-06] MEDS: ZINC SULFATE 220 MG CAPSULE PO SCH (11:50)
--- NOTE | 2019-11-06 12:07 | Hospitalist Progress Note ---
Date of Service November 06, 2019 Assessment & Plan (1) Closed fracture of right distal femur: Periprosthetic fracture around previous IM nail in right femur, as a result of mechanical fall at home. Right hip x-rays on 11/01 show: "Acute, distracted, and angulated spiral fracture of the distal femoral shaft around the inferior end of the intramedullary nail." - S/p right ORIF with Dr. Thrasher on 11/03. - Non-weightbearing right leg. - Pain control - Expected acute blood loss anemia in setting of femoral fracture; received a total of 4 units of PRBCs rogelio-operatively. Hgb is 9.4 today; down from 10.5. Will need to watch drain output. (2) Weakness: Due to fall, broken femur, and anemia. Cultures negative x 48 hours. Labs within normal limits apart from anemia as above. - PT/OT as above - CM for placement. Chronic gait disorder - patient mostly in wheelchair at home. - Wheelchair and walker as needed - Patient has home health nurse - PT/OT ordered in the hospital. (3) Liver cirrhosis secondary to STEVE: Patient with liver cirrhosis secondary to STEVE, portal hypertension. Patient follows with gastroenterology, last seen by Dr. Toledo on 04/20/19. HCV screening has been completed and is negative. AFP on 03/09/2019 = 2.6. INR = 1.4 - Continue lactulose & rifaximin - Continue zinc supplementation 50 mg daily - Continue Aldactone for lower extremity edema - Low sodium diet as tolerated - Avoid hepatotoxic agents (4) Seizure disorder: Patient with history of seizure. She follows with neurology, last seen on 04/02/19. EEG completed in May 2018 revealed a generalized spike and slow wave abnormality consistent with an underlying generalized seizure disorder. Patient had an MRI brain completed in October 2017 which was unremarkable. Patient failed VNS placement in the past, device was explanted. Presently on topiramate, Trileptal and Keppra. She was recently seen in the ER on 05/17/19 with report of seizures x 4 at home with a 5th seizure witnessed in triage - shaking her head and upper extremities. After consultation with Neurology her Oxcarbazepine was increased to 600mg po BID. - Continue topiramate 100 mg p.o. twice daily - Continue Trileptal 300 mg p.o. every morning and 600 mg p.o. nightly - Continue Keppra 1500 mg p.o. twice daily (5) Diabetes: Last hemoglobin A1c=4.6% on 10/20/19. Patient follows with Endocrinology/Diabetes education. - Continue Tresiba 12 units subcu every morning - Sliding scale insulin - Sugars 130 - 215 in last 24 hours. (6) Severe persistent asthma: History of severe persistent asthma. She has seen Pulmonary as well as Allergy/Immunology in the past. Spirometry performed on 04/23/19 with FVC=1.37, 38% predicted. FEV1=1.18, 40% predicted and FEV1/FVC=86%. Suggestive of restrictive process vs obstruction with air trapping. Study limited. Formal PFTs ordered, not yet completed. - Continue home medications (7) Major depressive disorder with psychotic features: Chronic. Stable. Patient presently not on any medications. She has been evaluated by psychiatry in the past. 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 - Continue Synthroid (9) GERD (gastroesophageal reflux disease): Chronic. Stable. - Continue PPI (10) Hx of migraines: Patient with episodic migraines. Well-controlled. - Continue topiramate - Patient has used Maxalt in the past with success for migraine relief if needed (11) DVT prophylaxis: Lovenox 40 mg SQ daily per surgery Admission and Anticipated Discharge Date Admission Date: November 02, 2019 Subjective Pain in the leg still. Reports no fevers/chills, chest pain, shortness of breath, abdominal pain, nausea, or vomiting. Physical Exam Constitutional: WD/WN, vitals as above + acute distress Eyes: EOM intact bilaterally; no conjunctival abnormality ENMT: external ear and nose normal, oropharynx normal Neck: trachea midline, no thyromegaly normal visual inspection Respiratory: normal respiratory effort, lungs clear to auscultation no respiratory distress Cardiovascular: RRR, no murmur, no edema Gastrointestinal (Abdomen): Inspection/Auscultation: abdomen normal to inspection; abdomen not distended Musculoskeletal: no cyanosis or clubbing, extremities motor strength 5/5 Extremities: + limited ROM of extremities (Right leg); + extremities abnormal to inspection (Drain from right leg with sanguinous output.) Skin: no rashes, warm and dry Neurologic: moves all extremities and awake Psychiatric: Orientation: alert, oriented to person and cooperative Affect: + tearful affect Results & Data Results & Data ([facility]) Vital Signs (Past 12 Hours) Vital Signs Temp Pulse Pulse Resp BP Pulse Ox 11/06/19 07:53 36.7 C 103 H 18 122/63 94 11/06/19 04:14 36.2 C L 75 18 108/66 97 PG Care Time/CCT Total # of Minutes Spent Total Time Spent with Patient: Total time spent is greater than 50% in coordination of care (as documented) at patient's floor/unit and/or counseling patient: Coding Level of Care Code 78344 Subseq Hosp Care Lvl 2 Diagnoses Closed fracture of right distal femur S72.401A Weakness R53.1 Liver cirrhosis secondary to STEVE K75.81; K74.60 Seizure disorder G40.909 Diabetes E11.69; Z79.4 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 complication status: with other specified complication 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 mcfp insulin use: with long goods drier use 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 type: type 2 Severe persistent asthma J45.50 Asthma complication type: uncomplicated Major depressive disorder with psychotic features F32.3 Blanca's thyroiditis E06.3 GERD (gastroesophageal reflux disease) K21.9 Esophagitis presence: esophagitis presence not specified Hx of migraines Z86.69 DVT prophylaxis Z29.9 (1) Diabetes 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 complication status: with other specified complication 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 long goods drier insulin use: with long goods drier use 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 type: type 2 Qualified Code(s): E11.69 - Type 2 diabetes mellitus with other specified complication; Z79.4 - termination clerk (current) use of insulin (2) Severe persistent asthma Asthma complication type: uncomplicated Qualified Code(s): J45.50 - Severe persistent asthma, uncomplicated (3) GERD (gastroesophageal reflux disease) Esophagitis presence: esophagitis presence not specified Qualified Code(s): K21.9 - Gastro-esophageal reflux disease without esophagitis
[2019-11-06] MEDS: SENNA 8.6 MG TAB PO SCH (20:47)
[2019-11-07] MEDS: ALBUT/IPRATROP 3MG/0.5MG NEB 3 ML VIAL INH PRN (02:07)
[2019-11-07] MEDS: HEPARIN 100 UNIT/ML 5ML FLUSH FLUSH PRN ×2 (05:48→09:00)
[2019-11-07] MEDS: ACETAMINOPHEN 500 MG TAB PO SCH ×3 (06:10→21:55)
[2019-11-07] MEDS: LEVOTHYROXINE SODIUM 50 MCG TABLET PO SCH (06:11)
[2019-11-07 06:18] LABS: Hematocrit (blood only) 26.9 % (37-47); Hemoglobin 9.8 g/dL (12.0-16.0); Mean Corpuscular Hgb Conc 36.4 g/dL (32-36); Mean Corpuscular Volume 96.1 fL (80-100); Mean Platelet Volume 9.3 fL (7.4-10.4); Platelet Count 102 K/uL (130-400); RDW Coefficient of Variation 18.4 % (11.5-14.5); RDW Standard Deviation 61.1 fL (36.4-46.3); White Blood Count 4.67 K/uL (4.8-10.8)
[2019-11-07 06:56] LABS: Albumin Level 2.1 gm/dl (3.4-5.0); BUN Creatinine Ratio 17.3 (10-20); Calcium 7.5 mg/dl (8.5-10.1); Creatinine Clr Calc Pharmacy 148.3 ml/min; Est GFR (African American) 128.1; Est GFR (Non-African American) 110.5; Potassium 4.2 mmol/L (3.5-5.1)
[2019-11-07 06:58] LABS: Bilirubin,Total 2.1 mg/dl (0.2-1); Globulin 2.2 gm/dl (2.5-4.0); Total Protein 4.3 gm/dl (6.4-8.2)
[2019-11-07] MEDS: levETIRAcetam 500 MG TAB PO SCH ×2 (07:40→20:42)
[2019-11-07] MEDS: MULTIVITAMIN TAB PO SCH ×2 (07:41→11:28)
[2019-11-07] MEDS: LORATADINE 10 MG TAB PO SCH (07:41)
[2019-11-07] MEDS: RIFAXIMIN 550 MG TABLET PO SCH ×2 (07:41→20:43)
[2019-11-07] MEDS: PANTOprazole 40 MG TAB PO SCH (07:41)
[2019-11-07] MEDS: SPIRONOLACTONE 25 MG TAB PO SCH (07:41)
[2019-11-07] MEDS: DOCUSATE SODIUM 100 MG CAP PO SCH ×2 (07:42→20:45)
[2019-11-07] MEDS: OXcarbazepine 150 MG TABLET PO SCH ×2 (07:42→20:43)
[2019-11-07] MEDS: TOPIRAMATE 100 MG TAB PO SCH ×2 (07:42→20:46)
[2019-11-07] MEDS: LACTULOSE SYRUP 30 GM/45 ML UDP PO SCH (07:43)
[2019-11-07] MEDS: ENOXAPARIN INJ 40 MG/0.4 ML SYR SQ SCH (07:43)
[2019-11-07] MEDS: INSULIN DEGLUDEC 100 UNITS/ML SQ SCH (07:44)
[2019-11-07] MEDS: INSULIN ASPART 100 UNITS/ML 3 ML PEN SC SCH ×4 (07:48→20:46)
[2019-11-07] MEDS: HYDROmorphone INJ 0.5 MG/0.5 ML SYR IV PRN (08:10)
--- NOTE | 2019-11-07 09:23 | Orthopedic Progress Note ---
Date of Service November 07, 2019 Assessment & Plan (1) Closed fracture of right distal femur: s/p ORIF Right distal femur, BUBBA POD#3 -DVT ppx: SCDs, TEDs, Lovenox -NWB RLE -PT/OT -Maintain KI -am labs - H/H to 9.8 -Drain DC'd, dressing changed today -Patient stable from an orthopedic standpoint, will sign off, instructions placed in DC section Admission and Anticipated Discharge Date Admission Date: November 02, 2019 Subjective Post Operative Progress Note Patient seen lying in bed, comfortable, does ask for pain meds when asked about pain, no acute issues. Patient just received IV Dilaudid. Denies F/C/N/V/SOB/CP. Review of Systems Review of Systems: All systems reviewed & are unremarkable except as noted in HPI & below Constitutional: as per Subjective / HPI Physical Exam Physical Exam: RLE NVSI +EHL/FHL SILT grossly, +2 DP pulse, compartments soft NT, incision Cdi. Constitutional: WD/WN, vitals as above Results & Data ([facility]) Vital Signs (Past 12 Hours) Vital Signs Temp Pulse Pulse Resp BP Pulse Ox 11/07/19 07:26 37.1 C 91 H 16 111/68 97 11/07/19 02:07 99 H 20 98 11/06/19 22:52 36.8 C 92 H 18 135/76 98 Laboratory Results 11/07/19 11/07/19 11/07/19 Range/Units 07:44 05:48 05:48 WBC 4.67 L (4.8-10.8) K/uL RBC 2.80 L (4.2-5.4) M/uL Hgb 9.8 L (12.0-16.0) g/dL Hct 26.9 L (37-47) % MCV 96.1 (80-100) fL MCH 35.0 H (25-34) pg MCHC 36.4 H (32-36) g/dL RDW Std Deviation 61.1 H (36.4-46.3) fL RDW Coeff of Irina 18.4 H (11.5-14.5) % Plt Count 102 L (130-400) K/uL MPV 9.3 (7.4-10.4) fL Sodium 137 (136-145) mmol/L Potassium 4.2 (3.5-5.1) mmol/L Chloride 110 H (98-107) mmol/L Carbon Dioxide 22 (21-32) mmol/L Anion Gap 5.0 (3-11) BUN 9 (7-18) mg/dl Creatinine 0.50 L (0.6-1.2) mg/dl Est Cr Clr Drug Dosing 148.3 ml/min Est GFR ( Amer) 128.1 Est GFR (Non-Af Amer) 110.5 BUN/Creatinine Ratio 17.3 (10-20) Glucose 163 H (70-99) mg/dl POC Glucose 181 H (70-99) mg/dl Calcium 7.5 L (8.5-10.1) mg/dl Total Bilirubin 2.1 H (0.2-1) mg/dl AST 37 (15-37) U/L ALT 33 (12-78) U/L Alkaline Phosphatase 130 H (45-117) U/L Total Protein 4.3 L (6.4-8.2) gm/dl Albumin 2.1 L (3.4-5.0) gm/dl Globulin 2.2 L (2.5-4.0) gm/dl Albumin/Globulin Ratio 1.0 (0.9-2) 11/06/19 11/06/19 11/06/19 Range/Units 20:22 17:01 11:59 WBC (4.8-10.8) K/uL RBC (4.2-5.4) M/uL Hgb (12.0-16.0) g/dL Hct (37-47) % MCV (80-100) fL MCH (25-34) pg MCHC (32-36) g/dL RDW Std Deviation (36.4-46.3) fL RDW Coeff of Irina (11.5-14.5) % Plt Count (130-400) K/uL MPV (7.4-10.4) fL Sodium (136-145) mmol/L Potassium (3.5-5.1) mmol/L Chloride (98-107) mmol/L Carbon Dioxide (21-32) mmol/L Anion Gap (3-11) BUN (7-18) mg/dl Creatinine (0.6-1.2) mg/dl Est Cr Clr Drug Dosing ml/min Est GFR ( Amer) Est GFR (Non-Af Amer) BUN/Creatinine Ratio (10-20) Glucose (70-99) mg/dl POC Glucose 184 H 201 H 177 H (70-99) mg/dl Calcium (8.5-10.1) mg/dl Total Bilirubin (0.2-1) mg/dl AST (15-37) U/L ALT (12-78) U/L Alkaline Phosphatase (45-117) U/L Total Protein (6.4-8.2) gm/dl Albumin (3.4-5.0) gm/dl Globulin (2.5-4.0) gm/dl Albumin/Globulin Ratio (0.9-2)
[2019-11-07] MEDS: CHOLECALCIFEROL 1,000 UNITS 25 MCG TAB PO SCH (11:27)
[2019-11-07] MEDS: MAGNESIUM CHLORIDE 64MG DELAYED REL TAB PO SCH (11:27)
[2019-11-07] MEDS: VITAMIN B COMPLEX TAB PO SCH (11:27)
[2019-11-07] MEDS: ZINC SULFATE 220 MG CAPSULE PO SCH (11:28)
--- NOTE | 2019-11-07 12:32 | Hospitalist Progress Note ---
Date of Service November 07, 2019 Assessment & Plan (1) Closed fracture of right distal femur: Periprosthetic fracture around previous IM nail in right femur, as a result of mechanical fall at home. Right hip x-rays on 11/01 show: "Acute, distracted, and angulated spiral fracture of the distal femoral shaft around the inferior end of the intramedullary nail." - S/p right ORIF with Dr. Thrasher on 11/04/2019. Dressing changed on 11/06 and ortho feel surgical site looking good. - Non-weightbearing right leg x 6-8 weeks. Ortho will get Q2week x-rays to monitor bone bridging to make final determination. - Pain control - Expected acute blood loss anemia in setting of femoral fracture; received a total of 4 units of PRBCs rogelio-operatively. Hgb is 9.8 today; stable from yesterday. Drain removed yesterday. - PT/OT/CM for placement. Target process required. (2) Weakness: Due to fall, broken femur, and anemia. Cultures negative x 48 hours. Labs within normal limits apart from anemia as above. - PT/OT as above - CM for placement. Chronic gait disorder - patient mostly in wheelchair at home. - Wheelchair and walker as needed - Patient has home health nurse - PT/OT ordered in the hospital. (3) Liver cirrhosis secondary to STEVE: Patient with liver cirrhosis secondary to STEVE, portal hypertension. Patient follows with gastroenterology, last seen by Dr. Toledo on 04/20/19. HCV screening has been completed and is negative. AFP on 03/09/2019 = 2.6. INR = 1.4 - Continue lactulose & rifaximin - Continue zinc supplementation 50 mg daily - Continue Aldactone for lower extremity edema - Low sodium diet as tolerated - Avoid hepatotoxic agents (4) Seizure disorder: Patient with history of seizure. She follows with neurology, last seen on 04/02/19. EEG completed in May 2018 revealed a generalized spike and slow wave abnormality consistent with an underlying generalized seizure disorder. Patient had an MRI brain completed in October 2017 which was unremarkable. Patient failed VNS placement in the past, device was explanted. Presently on topiramate, Trileptal and Keppra. She was recently seen in the ER on 05/17/19 with report of seizures x 4 at home with a 5th seizure witnessed in triage - shaking her head and upper extremities. After consultation with Neurology, her oxcarbazepine was increased to 600mg po BID. - Continue topiramate 100 mg p.o. twice daily - Continue Trileptal 300 mg p.o. every morning and 600 mg p.o. nightly (this is different from above, but confirms this is current dosing) - Continue Keppra 1500 mg p.o. twice daily (5) Diabetes: Last hemoglobin A1c=4.6% on 10/20/19. Patient follows with En docrinology/Diabetes education. - Continue Tresiba 12 units subcu every morning - Sliding scale insulin - Sugars 170 - 215 in last 24 hours. Overnight sugar seems stable, but goes up with meals. Will increase meal-time and correction factor today (11/06). (6) Severe persistent asthma: History of severe persistent asthma. She has seen Pulmonary as well as Allergy/Immunology in the past. Spirometry performed on 04/23/19 with FVC=1.37, 38% predicted. FEV1=1.18, 40% predicted and FEV1/FVC=86%. Suggestive of restrictive process vs obstruction with air trapping. Study limited. Formal PFTs ordered, not yet completed. - Continue home medications - DuoNebs PRN (7) Major depressive disorder with psychotic features: Chronic. Stable. Patient presently not on any medications. She has been evaluated by psychiatry in the past. (8) Blanca's thyroiditis: TSH = 1.56. - Continue Synthroid (9) GERD (gastroesophageal reflux disease): Chronic. Stable. - Continue PPI (10) Hx of migraines: Patient with episodic migraines. Well-controlled. - Continue topiramate - Patient has used Maxalt in the past with success for migraine relief if needed (11) DVT prophylaxis: Lovenox 40 mg SQ daily per surgery Admission and Anticipated Discharge Date Admission Date: November 02, 2019 Subjective Quite upset this morning. Reports shortness of breath and that we're messing up her seizure medications. Also having pain in the right leg after bandage change with ortho. Reports no fevers/chills, chest pain, abdominal pain, nausea, or vomiting. Physical Exam Constitutional: WD/WN, vitals as above + acute distress Eyes: EOM intact bilaterally; no conjunctival abnormality ENMT: external ear and nose normal, oropharynx normal Neck: trachea midline, no thyromegaly normal visual inspection Respiratory: normal respiratory effort, lungs clear to auscultation no respiratory distress Cardiovascular: RRR, no murmur, no edema Gastrointestinal (Abdomen): Inspection/Auscultation: abdomen normal to inspection; abdomen not distended Musculoskeletal: no cyanosis or clubbing, extremities motor strength 5/5 Extremities: + limited ROM of extremities (Right leg); + extremities abnormal to inspection (Dressed and bandaged. Drain out.) Skin: no rashes, warm and dry Neurologic: moves all extremities and awake Psychiatric: Orientation: alert, oriented to person and cooperative Affect: + tearful affect Results & Data Results & Data ([facility]) Vital Signs (Past 12 Hours) Vital Signs Temp Pulse Pulse Resp BP Pulse Ox 11/07/19 07:26 37.1 C 91 H 16 111/68 97 11/07/19 02:07 99 H 20 98 PG Care Time/CCT Total # of Minutes Spent Total Time Spent with Patient: Total time spent is greater than 50% in coordination of care (as documented) at patient's floor/unit and/or counseling patient: Coding Level of Care Code 54153 Subseq Hosp Care Lvl 3 Diagnoses Closed fracture of right distal femur S72.401A Weakness R53.1 Liver cirrhosis secondary to STEVE K75.81; K74.60 Seizure disorder G40.909 Diabetes E11.69; Z79.4 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 complication status: with other specified complication 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 shelter insulin use: with shelter use 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 type: type 2 Severe persistent asthma J45.50 Asthma complication type: uncomplicated Major depressive disorder with psychotic features F32.3 Blanca's thyroiditis E06.3 GERD (gastroesophageal reflux disease) K21.9 Esophagitis presence: esophagitis presence not specified Hx of migraines Z86.69 DVT prophylaxis Z29.9 (1) Diabetes 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 complication status: with other specified complication 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 shelter insulin use: with interventional tech use 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 type: type 2 Qualified Code(s): E11.69 - Type 2 diabetes mellitus with other specified complication; Z79.4 - continuous churn buttermaker (current) use of insulin (2) Severe persistent asthma Asthma complication type: uncomplicated Qualified Code(s): J45.50 - Severe persistent asthma, uncomplicated (3) GERD (gastroesophageal reflux disease) Esophagitis presence: esophagitis presence not specified Qualified Code(s): K21.9 - Gastro-esophageal reflux disease without esophagitis
[2019-11-07] MEDS: PROMETHAZINE HCL 25 MG TAB PO PRN (16:41)
[2019-11-07] MEDS ORDERED: LACTULOSE SYRUP 30 GM/45 ML UDP PO STA (17:18)
[2019-11-07] MEDS: SENNA 8.6 MG TAB PO SCH (20:44)
[2019-11-07] MEDS: OXYCODONE HCL IR 5 MG TAB (IMMEDIATE RELEASE) PO PRN (20:49)
[2019-11-08] MEDS: HEPARIN 100 UNIT/ML 5ML FLUSH FLUSH PRN ×2 (04:51→12:32)
[2019-11-08 05:30] LABS: Hematocrit (blood only) 24.9 % (37-47); Hemoglobin 8.9 g/dL (12.0-16.0); Mean Corpuscular Hemoglobin 34.5 pg (25-34); Mean Corpuscular Hgb Conc 35.7 g/dL (32-36); Mean Corpuscular Volume 96.5 fL (80-100); Mean Platelet Volume 9.5 fL (7.4-10.4); Platelet Count 108 K/uL (130-400); RDW Coefficient of Variation 18.2 % (11.5-14.5); RDW Standard Deviation 61.8 fL (36.4-46.3); Red Blood Count 2.58 M/uL (4.2-5.4); White Blood Count 3.71 K/uL (4.8-10.8)
[2019-11-08 05:55] LABS: BUN Creatinine Ratio 18.1 (10-20); Calcium 7.4 mg/dl (8.5-10.1); Creatinine Clr Calc Pharmacy 168.5 ml/min; Est GFR (African American) 133.6; Est GFR (Non-African American) 115.2; Magnesium 1.4 mg/dl (1.8-2.4); Potassium 3.9 mmol/L (3.5-5.1)
[2019-11-08] MEDS: ACETAMINOPHEN 500 MG TAB PO SCH ×3 (06:17→21:24)
[2019-11-08] MEDS: LEVOTHYROXINE SODIUM 50 MCG TABLET PO SCH (06:17)
[2019-11-08] MEDS: MAGNESIUM SULFATE / D5W 1 GM/100 ML BAG IV SCH ×3 (06:32→10:19)
[2019-11-08] MEDS: ENOXAPARIN INJ 40 MG/0.4 ML SYR SQ SCH (08:23)
[2019-11-08] MEDS: DOCUSATE SODIUM 100 MG CAP PO SCH ×2 (08:23→21:21)
[2019-11-08] MEDS: MAGNESIUM OXIDE 400 MG TAB PO SCH ×2 (08:23→21:22)
[2019-11-08] MEDS: LACTULOSE SYRUP 30 GM/45 ML UDP PO SCH (08:24)
[2019-11-08] MEDS: TOPIRAMATE 100 MG TAB PO SCH ×2 (08:24→21:23)
[2019-11-08] MEDS: MULTIVITAMIN TAB PO SCH ×2 (08:24→12:33)
[2019-11-08] MEDS: LORATADINE 10 MG TAB PO SCH (08:24)
[2019-11-08] MEDS: PANTOprazole 40 MG TAB PO SCH (08:24)
[2019-11-08] MEDS: RIFAXIMIN 550 MG TABLET PO SCH ×2 (08:25→21:25)
[2019-11-08] MEDS: levETIRAcetam 500 MG TAB PO SCH ×2 (08:26→21:21)
[2019-11-08] MEDS: OXcarbazepine 150 MG TABLET PO SCH ×2 (08:26→21:24)
[2019-11-08] MEDS: SPIRONOLACTONE 25 MG TAB PO SCH (08:26)
[2019-11-08] MEDS: INSULIN DEGLUDEC 100 UNITS/ML SQ SCH (08:27)
[2019-11-08] MEDS: INSULIN ASPART 100 UNITS/ML 3 ML PEN SC SCH ×4 (08:28→22:13)
--- NOTE | 2019-11-08 08:30 | Hospitalist Progress Note ---
Date of Service November 08, 2019 Assessment & Plan (1) Closed fracture of right distal femur: Periprosthetic fracture around previous IM nail in right femur, as a result of mechanical fall at home. Right hip x-rays on 11/01 show: "Acute, distracted, and angulated spiral fracture of the distal femoral shaft around the inferior end of the intramedullary nail." - S/p right ORIF with Dr. Thrasher on 11/04/2019. Dressing changed on 11/06 and ortho feel surgical site looking good. - Non-weightbearing right leg x 6-8 weeks. Ortho will get Q2week x-rays to monitor bone bridging to make final determination. - Pain control - Expected acute blood loss anemia in setting of femoral fracture; received a total of 4 units of PRBCs rogelio-operatively. Hgb is stable in the 8.99 g range, drain removed by orthopedics. - PT/OT/CM for placement. Target process required. Psychological evaluation performed 11/08/2019 (2) Weakness: Due to fall, broken femur, and anemia. Cultures negative x 48 hours. Labs within normal limits apart from anemia as above. - PT/OT as above - CM for placement. Be targeted process dependent upon state for approval Chronic gait disorder - patient mostly in wheelchair at home. -Despite providing care for her at home with regard to her gait disturbance is supportive of rehab placement - PT/OT ordered in the hospital. (3) Liver cirrhosis secondary to STEVE: Patient with liver cirrhosis secondary to STEVE, portal hypertension. Patient follows with gastroenterology, last seen by Dr. Toledo on 04/20/19. HCV screening has been completed and is negative. AFP on 03/09/2019 = 2.6. INR = 1.4 - Continue lactulose & rifaximin patient did have bowel movement on - Continue zinc supplementation 50 mg daily - Continue Aldactone for lower extremity edema - Low sodium diet as tolerated - Avoid hepatotoxic agents (4) Seizure disorder: Patient with history of seizure. She follows with neurology, last seen on 04/02/19. EEG completed in May 2018 revealed a generalized spike and slow wave abnormality consistent with an underlying generalized seizure disorder. Patient had an MRI brain completed in October 2017 which was unremarkable. Patient failed VNS placement in the past, device was explanted. Presently on topiramate, Trileptal and Keppra. She was recently seen in the ER on 05/17/19 with report of seizures x 4 at home with a 5th seizure witnessed in triage - shaking her head and upper extremities. After consultation with Neurology, her oxcarbazepine was increased to 600mg po BID. - Continue topiramate 100 mg p.o. twice daily - Continue Trileptal 300 mg p.o. every morning and 600 mg p.o. nightly (this is different from above, but confirms this is current dosing) - Continue Keppra 1500 mg p.o. twice daily (5) Diabetes: Last hemoglobin A1c=4.6% on 10/20/19. Patient follows with End ocrinology/Diabetes education. - Continue Tresiba 10 units subcu every morning - Sliding scale insulin - Sugars 170 - 215 in last 24 hours. Overnight sugar seems stable, but goes up with meals. Will increase meal-time and correction factor today (11/06) Patient request to speak to diabetic educators to dog trainer on 11/09/2019 consult was placed (6) Severe persistent asthma: History of persistent asthma. She has seen Pulmonary as well as Allergy/Immunology in the past. Spirometry performed on 04/23/19 with FVC=1.37, 38% predicted. FEV1=1.18, 40% predicted and FEV1/FVC=86%. Suggestive of restrictive process vs obstruction with air trapping. Study limited. Formal PFTs ordered, not yet completed. -Patient is stable at this time - DuoNebs PRN (7) Major depressive disorder with psychotic features: Chronic. Stable. Patient presently not on any medications. She will be evaluated by inpatient psychiatry for targeting process (8) Blanca's thyroiditis: TSH = 1.56. - Continue Synthroid (9) GERD (gastroesophageal reflux disease): Chronic. Stable. - Continue PPI (10) Hx of migraines: Patient with episodic migraines. Well-controlled. - Continue topiramate - Patient has used Maxalt in the past with success for migraine relief if needed (11) DVT prophylaxis: Lovenox 40 mg SQ daily per surgery Admission and Anticipated Discharge Date Admission Date: November 02, 2019 Subjective CMP has some pain in her operative site she is fatigued and deconditioned she is looking forward to subacute rehab to improve her function although she is a nonweightbearing on the affected limb for at least 6 weeks by orthopedic recommendations Review of Systems Review of Systems: Mild distress and fatigue no headache, blurry or double vision no speech or swallowing issues no chest pain, pressure or palpitations no shortness of breath, cough or wheezes no abdominal pain, nausea or vomiting, diarrhea or constipation no dysuria, hematuria or frequency Patient has right thigh and hip pain especially worse with movement she does have some peripheral swelling no back pain, CVA tenderness or radicular pain no bruising, bleeding or rashes no focal signs of weakness or numbness or altered sensation no complaints or anxiety or depression. Physical Exam Physical Exam: The patient appeared chronically ill but near her usual state as I previously been around this [employer] while hospitalized Vital signs as documented. Head exam is normocephalic atraumatic no scleral icterus Neck is without JVD, thyromegaly, or carotid bruits. Lungs are clear to auscultation, no focal loss of breath sounds Cardiac exam, Rhythm is regular.. No murmurs, rubs or gallops. Abdominal exam reveals normal bowel sounds, soft non tender, no masses Extremities are mildly edematous right greater than left and both pedal pulses are normal. Neurologic exam is alert and oriented, she is of slow mentation but she is intact no focal loss of strength or sensation however the affected limb cannot be tested due to pain and splinting Psychologically is without concerns for acute depression Results & Data Results & Data ([facility]) Vital Signs (Past 12 Hours) Vital Signs Temp Pulse Resp BP Pulse Ox 11/08/19 07:19 98.4 F 82 18 125/79 97 11/07/19 21:59 99.1 F 89 20 131/75 98 PG Care Time/CCT Total # of Minutes Spent Total Time Spent with Patient: Total time spent is greater than 50% in coordination of care (as documented) at patient's floor/unit and/or counseling patient: Coding Level of Care Code 19411 Subseq Hosp Care Lvl 3 Diagnoses Closed fracture of right distal femur S72.401A Weakness R53.1 Liver cirrhosis secondary to STEVE K75.81; K74.60 Seizure disorder G40.909 Diabetes E11.69; Z79.4 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 complication status: with other specified complication 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 intermediate insulin use: with intermediate teacher use 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 type: type 2 Severe persistent asthma J45.50 Asthma complication type: uncomplicated Major depressive disorder with psychotic features F32.3 Blanca's thyroiditis E06.3 GERD (gastroesophageal reflux disease) K21.9 Esophagitis presence: esophagitis presence not specified Hx of migraines Z86.69 DVT prophylaxis Z29.9 (1) Diabetes 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 complication status: with other specified complication 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 intermediate insulin use: with intermediate use 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 type: type 2 Qualified Code(s): E11.69 - Type 2 diabetes mellitus with other specified complication; Z79.4 - USP (current) use of insulin (2) Severe persistent asthma Asthma complication type: uncomplicated Qualified Code(s): J45.50 - Severe persistent asthma, uncomplicated (3) GERD (gastroesophageal reflux disease) Esophagitis presence: esophagitis presence not specified Qualified Code(s): K21.9 - Gastro-esophageal reflux disease without esophagitis
[2019-11-08] MEDS: OXYCODONE HCL IR 5 MG TAB (IMMEDIATE RELEASE) PO PRN (08:31)
[2019-11-08] MEDS ORDERED: MAGNESIUM SULFATE / D5W 1 GM/100 ML BAG IV SCH (08:45)
[2019-11-08] MEDS: CHOLECALCIFEROL 1,000 UNITS 25 MCG TAB PO SCH (12:32)
[2019-11-08] MEDS: ZINC SULFATE 220 MG CAPSULE PO SCH (12:33)
[2019-11-08] MEDS: MAGNESIUM CHLORIDE 64MG DELAYED REL TAB PO SCH (12:33)
[2019-11-08] MEDS: VITAMIN B COMPLEX TAB PO SCH (12:33)
--- NOTE | 2019-11-08 13:21 | Psychiatric Consultation ---
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 11/01/19 09:01 Dose: 300 mg Documented by: [id number] Oxcarbazepine (Trileptal) 600 mg PO HS SHEBA Stop: 12/01/19 20:59 Last Admin: 11/07/19 20:43 Dose: 600 mg Documented by: [id number] Admin: 11/06/19 20:49 Dose: 600 mg Documented by: [id number] Admin: 11/05/19 21:04 Dose: 600 mg Documented by: [id number] Admin: 11/04/19 22:00 Dose: Not Given Documented by: [id number] Admin: 11/03/19 20:54 Dose: 600 mg Documented by: [id number] Admin: 11/02/19 20:38 Dose: 600 mg Documented by: [id number] Admin: 11/01/19 20:38 Dose: 600 mg Documented by: [id number] Oxycodone HCl (Roxicodone Immediate Rel) 5 - 10 mg PO Q4H PRN PRN Reason: Pain or Pre PT Stop: 11/18/19 20:54 Last Admin: 11/08/19 08:31 Dose: 10 mg Documented by: [id number] Admin: 11/07/19 20:49 Dose: 5 mg Documented by: [id number] Admin: 11/06/19 20:46 Dose: 10 mg Documented by: [id number] Admin: 11/06/19 15:41 Dose: 5 mg Documented by: [id number] Admin: 11/06/19 09:16 Dose: 10 mg Documented by: [id number] Pantoprazole Sodium (Protonix) 40 mg PO QAM [facility] Stop: 12/01/19 08:59 Last Admin: 11/08/19 08:24 Dose: 40 mg Documented by: [id number] Admin: 11/07/19 07:41 Dose: 40 mg Documented by: [id number] Admin: 11/06/19 07:37 Dose: 40 mg Documented by: [id number] Admin: 11/05/19 09:13 Dose: 40 mg Documented by: [id number] Admin: 11/04/19 08:14 Dose: 40 mg Documented by: [id number] Admin: 11/03/19 08:44 Dose: 40 mg Documented by: [id number] Admin: 11/02/19 07:51 Dose: 40 mg Documented by: [id number] Admin: 11/01/19 09:00 Dose: 40 mg Documented by: [id number] Promethazine HCl (Phenergan) 25 mg PO Q6H PRN PRN Reason: sedation Stop: 12/01/19 01:51 Last Admin: 11/07/19 16:41 Dose: 25 mg Documented by: [id number] Admin: 11/04/19 13:41 Dose: 25 mg Documented by: [id number] Admin: 11/03/19 12:50 Dose: 25 mg Documented by: [id number] Rifaximin (Xifaxan) 550 mg PO BID [facility] Stop: 12/01/19 08:59 Last Admin: 11/08/19 08:25 Dose: 550 mg Documented by: [id number] Admin: 11/07/19 20:43 Dose: 550 mg Documented by: [id number] Admin: 11/07/19 07:41 Dose: 550 mg Documented by: [id number] Admin: 11/06/19 20:48 Dose: 550 mg Documented by: [id number] Admin: 11/06/19 07:37 Dose: 550 mg Documented by: [id number] Admin: 11/05/19 21:03 Dose: 550 mg Documented by: [id number] Admin: 11/05/19 09:12 Dose: 550 mg Documented by: [id number] Admin: 11/04/19 22:00 Dose: Not Given Documented by: [id number] Admin: 11/04/19 08:13 Dose: 550 mg Documented by: [id number] Admin: 11/03/19 20:53 Dose: 550 mg Documented by: [id number] Admin: 11/03/19 08:36 Dose: 550 mg Documented by: [id number] Admin: 11/02/19 20:39 Dose: 550 mg Documented by: [id number] Admin: 11/02/19 07:52 Dose: 550 mg Documented by: [id number] Admin: 11/01/19 20:39 Dose: 550 mg Documented by: [id number] Admin: 11/01/19 09:01 Dose: 550 mg Documented by: [id number] Sennosides (Senokot) 17.2 mg PO SHEBA Stop: 12/04/19 20:59 Last Admin: 11/07/19 20:44 Dose: 17.2 mg Documented by: [id number] Admin: 11/06/19 20:47 Dose: 17.2 mg Documented by: [id number] Admin: 11/05/19 21:03 Dose: 17.2 mg Documented by: [id number] Admin: 11/04/19 21:14 Dose: Not Given Documented by: [id number] Spironolactone (Aldactone) 50 mg PO QA SHE[facility] Stop: 12/01/19 08:59 Last Admin: 11/08/19 08:26 Dose: 50 mg Documented by: [id number] Admin: 11/07/19 07:41 Dose: 50 mg Documented by: [id number] Admin: 11/06/19 07:39 Dose: 50 mg Documented by: [id number] Admin: 11/05/19 09:14 Dose: 50 mg Documented by: [id number] Admin: 11/04/19 08:15 Dose: 50 mg Documented by: [id number] Admin: 11/03/19 08:43 Dose: 50 mg Documented by: [id number] Admin: 11/02/19 07:51 Dose: 50 mg Documented by: [id number] Topiramate (Topamax) 100 mg PO BID [facility] Stop: 12/01/19 08:59 Last Admin: 11/08/19 08:24 Dose: 100 mg Documented by: [id number] Admin: 11/07/19 20:46 Dose: 100 mg Documented by: [id number] Admin: 11/07/19 07:42 Dose: 100 mg Documented by: [id number] Admin: 11/06/19 20:47 Dose: 100 mg Documented by: [id number] Admin: 11/06/19 07:40 Dose: 100 mg Documented by: [id number] Admin: 11/05/19 21:03 Dose: 100 mg Documented by: [id number] Admin: 11/05/19 09:14 Dose: 100 mg Documented by: [id number] Admin: 11/04/19 22:00 Dose: Not Given Documented by: [id number] Admin: 11/04/19 08:15 Dose: 100 mg Documented by: [id number] Admin: 11/03/19 20:55 Dose: 100 mg Documented by: [id number] Admin: 11/03/19 08:38 Dose: 100 mg Documented by: [id number] Admin: 11/02/19 20:40 Dose: 100 mg Documented by: [id number] Admin: 11/02/19 07:51 Dose: 100 mg Documented by: [id number] Admin: 11/01/19 20:39 Dose: 100 mg Documented by: [id number] Admin: 11/01/19 09:01 Dose: 100 mg Documented by: [id number] Vitamin B Complex (Vitamin B Complex) 1 tab PO QDL SHEBA Stop: 12/01/19 11:29 Last Admin: 11/08/19 12:33 Dose: 1 tab Documented by: [id number] Admin: 11/07/19 11:27 Dose: 1 tab Documented by: [id number] Admin: 11/06/19 11:50 Dose: 1 tab Documented by: [id number] Admin: 11/05/19 11:29 Dose: 1 tab Documented by: [id number] Admin: 11/04/19 12:16 Dose: 1 tab Documented by: [id number] Admin: 11/03/19 12:19 Dose: 1 tab Documented by: [id number] Admin: 11/02/19 12:35 Dose: 1 tab Documented by: [id number] Admin: 11/01/19 11:29 Dose: 1 tab Documented by: [id number] Vitamin D (Vitamin D3) 1,000 units PO QDL SHEBA Stop: 12/01/19 11:29 Last Admin: 11/08/19 12:32 Dose: 1,000 units Documented by: [id number] Admin: 11/07/19 11:27 Dose: 1,000 units Documented by: [id number] Admin: 11/06/19 11:49 Dose: 1,000 units Documented by: [id number] Admin: 11/05/19 11:28 Dose: 1,000 units Documented by: [id number] Admin: 11/04/19 12:15 Dose: 1,000 units Documented by: [id number] Admin: 11/03/19 12:19 Dose: 1,000 units Documented by: [id number] Admin: 11/02/19 12:36 Dose: 1,000 units Documented by: [id number] Admin: 11/01/19 11:29 Dose: 1,000 units Documented by: [id number] Zinc Sulfate (Zinc Sulfate) 220 mg PO QDL SHEBA Stop: 12/01/19 11:29 Last Admin: 11/08/19 12:33 Dose: 220 mg Documented by: [id number] Admin: 11/07/19 11:28 Dose: 220 mg Documented by: [id number] Admin: 11/06/19 11:50 Dose: 220 mg Documented by: [id number] Admin: 11/05/19 11:29 Dose: 220 mg Documented by: [id number] Admin: 11/04/19 12:16 Dose: 220 mg Documented by: [id number] Admin: 11/03/19 12:19 Dose: 220 mg Documented by: [id number] Admin: 11/02/19 12:36 Dose: 220 mg Documented by: [id number] Admin: 11/01/19 11:29 Dose: 220 mg Documented by: [id number] Coding Level of Care Code 86201 [facility] Intl Hosp Care Lvl 2 Diagnoses Borderline personality disorder F60.3 Major depressive disorder F32.9
[2019-11-08] MEDS: ESCITALOPRAM OXALATE 10 MG TAB PO SCH (15:52)
[2019-11-08] MEDS: SENNA 8.6 MG TAB PO SCH (21:23)
[2019-11-09] MEDS: LEVOTHYROXINE SODIUM 50 MCG TABLET PO SCH (05:35)
[2019-11-09] MEDS: ACETAMINOPHEN 500 MG TAB PO SCH ×3 (05:35→21:03)
[2019-11-09] MEDS: HEPARIN 100 UNIT/ML 5ML FLUSH FLUSH PRN ×3 (05:36→14:34)
[2019-11-09 06:09] LABS: Hematocrit (blood only) 25.3 % (37-47); Hemoglobin 9.4 g/dL (12.0-16.0); Mean Corpuscular Hemoglobin 35.5 pg (25-34); Mean Corpuscular Hgb Conc 37.2 g/dL (32-36); Mean Corpuscular Volume 95.5 fL (80-100); Mean Platelet Volume 9.5 fL (7.4-10.4); Platelet Count 107 K/uL (130-400); RDW Coefficient of Variation 18.2 % (11.5-14.5); Red Blood Count 2.65 M/uL (4.2-5.4); White Blood Count 3.26 K/uL (4.8-10.8)
[2019-11-09] MEDS: ALBUT/IPRATROP 3MG/0.5MG NEB 3 ML VIAL INH PRN (06:39)
[2019-11-09 06:46] LABS: BUN Creatinine Ratio 21.6 (10-20); Calcium 6.6 mg/dl (8.5-10.1); Creatinine Clr Calc Pharmacy 200.4 ml/min; Est GFR (African American) 141.4; Magnesium 1.5 mg/dl (1.8-2.4); Potassium 4.1 mmol/L (3.5-5.1)
[2019-11-09] MEDS: RIFAXIMIN 550 MG TABLET PO SCH ×2 (08:15→21:02)
[2019-11-09] MEDS: PANTOprazole 40 MG TAB PO SCH (08:15)
[2019-11-09] MEDS: SPIRONOLACTONE 25 MG TAB PO SCH (08:15)
[2019-11-09] MEDS: LORATADINE 10 MG TAB PO SCH (08:16)
[2019-11-09] MEDS: levETIRAcetam 500 MG TAB PO SCH ×2 (08:16→21:02)
[2019-11-09] MEDS: ENOXAPARIN INJ 40 MG/0.4 ML SYR SQ SCH (08:17)
[2019-11-09] MEDS: TOPIRAMATE 100 MG TAB PO SCH ×2 (08:17→21:03)
[2019-11-09] MEDS: OXcarbazepine 150 MG TABLET PO SCH ×2 (08:17→21:02)
[2019-11-09] MEDS: DOCUSATE SODIUM 100 MG CAP PO SCH ×2 (08:17→21:02)
[2019-11-09] MEDS: ESCITALOPRAM OXALATE 10 MG TAB PO SCH (08:18)
[2019-11-09] MEDS: LACTULOSE SYRUP 30 GM/45 ML UDP PO SCH (08:18)
[2019-11-09] MEDS: MAGNESIUM OXIDE 400 MG TAB PO SCH ×2 (08:20→21:03)
[2019-11-09] MEDS: INSULIN DEGLUDEC 100 UNITS/ML SQ SCH (08:21)
[2019-11-09] MEDS: INSULIN ASPART 100 UNITS/ML 3 ML PEN SC SCH ×4 (08:23→21:03)
[2019-11-09] MEDS: ONDANSETRON INJ 2 MG/ML 2 ML VIAL IV PRN (10:34)
[2019-11-09] MEDS: MAGNESIUM SULFATE / D5W 1 GM/100 ML BAG IV SCH ×2 (10:36→12:39)
[2019-11-09] MEDS: METOCLOPRAMIDE HCL INJ 5 MG/ML 2 ML VIAL IV PRN (11:43)
[2019-11-09] MEDS: VITAMIN B COMPLEX TAB PO SCH (11:46)
[2019-11-09] MEDS: ZINC SULFATE 220 MG CAPSULE PO SCH (11:46)
[2019-11-09] MEDS: MAGNESIUM CHLORIDE 64MG DELAYED REL TAB PO SCH (11:46)
[2019-11-09] MEDS: MULTIVITAMIN TAB PO SCH (11:46)
[2019-11-09] MEDS: CHOLECALCIFEROL 1,000 UNITS 25 MCG TAB PO SCH (11:46)
[2019-11-09] MEDS: OXYCODONE HCL IR 5 MG TAB (IMMEDIATE RELEASE) PO PRN ×2 (14:31→19:13)
--- NOTE | 2019-11-09 18:03 | Hospitalist Progress Note ---
Date of Service November 09, 2019 Assessment & Plan (1) Case management patient: Patient is relatively stable at this point time she is complaining of various somatic complaints but nothing specific or focal we are waiting on case management to continue to pursue the target process for placement for rehab and to a long term facility for her spiral femur fracture status post surgical repair which will likely take greater than 30 days for rehab as she is 6 weeks nonweightbearing (2) Closed fracture of right distal femur: Periprosthetic fracture around previous IM nail in right femur, as a result of mechanical fall at home. Right hip x-rays on 11/01 show: "Acute, distracted, and angulated spiral fracture of the distal femoral shaft around the inferior end of the intramedullary nail." - S/p right ORIF with Dr. Thrasher on 11/04/2019. Dressing changed on 11/06 and ortho feel surgical site looking good. - Non-weightbearing right leg x 6-8 weeks. Ortho will get Q2week x-rays to monitor bone bridging to make final determination. - Pain control - Expected acute blood loss anemia in setting of femoral fracture; received a total of 4 units of PRBCs rogelio-operatively. Hgb is stable in the 8.99 g range, drain removed by orthopedics. - PT/OT/CM for placement. Target process required. Psychological evaluation performed 11/08/2019 (3) Weakness: Due to fall, broken femur, and anemia. Cultures negative x 48 hours. Labs within normal limits apart from anemia as above. - PT/OT as above - CM for placement. Be targeted process dependent upon state for approval Chronic gait disorder - patient mostly in wheelchair at home. -Despite providing care for her at home with regard to her gait disturbance is supportive of rehab placement - PT/OT ordered in the hospital. (4) Liver cirrhosis secondary to STEVE: Patient with liver cirrhosis secondary to STEVE, portal hypertension. Patient follows with gastroenterology, last seen by Dr. Toledo on 04/20/19. HCV screening has been completed and is negative. AFP on 03/09/2019 = 2.6. INR = 1.4 - Continue lactulose & rifaximin patient did have bowel movement on - Continue zinc supplementation 50 mg daily - Continue Aldactone for lower extremity edema - Low sodium diet as tolerated - Avoid hepatotoxic agents (5) Seizure disorder: Patient with history of seizure. She follows with neurology, last seen on 04/02/19. EEG completed in May 2018 revealed a generalized spike and slow wave abnormality consistent with an underlying generalized seizure disorder. Patient had an MRI brain completed in October 2017 which was unremarkable. Patient failed VNS placement in the past, device was explanted. Presently on topiramate, Trileptal and Keppra. She was recently seen in the ER on 05/17/19 with report of seizures x 4 at home with a 5th seizure witnessed in triage - s haking her head and upper extremities. After consultation with Neurology, her oxcarbazepine was increased to 600mg po BID. - Continue topiramate 100 mg p.o. twice daily - Continue Trileptal 300 mg p.o. every morning and 600 mg p.o. nightly (this is different from above, but confirms this is current dosing) - Continue Keppra 1500 mg p.o. twice daily (6) Diabetes: Last hemoglobin A1c=4.6% on 10/20/19. Patient follows with Endocrinology/Diabetes education. - Continue Tresiba 10 units subcu every morning - Sliding scale insulin - Sugars 170 - 215 in last 24 hours. Overnight sugar seems stable, but goes up with meals. Will increase meal-time and correction factor today (11/06) Patient request to speak to diabetic educators to program trainer on 11/09/2019 consult was placed (7) Severe persistent asthma: History of persistent asthma. She has seen Pulmonary as well as Allergy/Immunology in the past. Spirometry performed on 04/23/19 with FVC=1.37, 38% predicted. FEV1=1.18, 40% predicted and FEV1/FVC=86%. Suggestive of restrictive process vs obstruction with air trapping. Study limited. Formal PFTs ordered, not yet completed. -Patient is stable at this time - DuoNebs PRN (8) Major depressive disorder with psychotic features: Chronic. Stable. Patient presently not on any medications. She will be evaluated by inpatient psychiatry for targeting process (9) Blanca's thyroiditis: TSH = 1.56. - Continue Synthroid (10) GERD (gastroesophageal reflux disease): Chronic. Stable. - Continue PPI (11) Hx of migraines: Patient with episodic migraines. Well-controlled. - Continue topiramate - Patient has used Maxalt in the past with success for migraine relief if needed (12) DVT prophylaxis: Lovenox 40 mg SQ daily per surgery Admission and Anticipated Discharge Date Admission Date: November 02, 2019 Subjective . This pt has persistent somatic discomfort now complaining of vomitus of though not able to produce any and nursing staff did not report any vomitus was seen, has some pain in her operative site she is fatigued and deconditioned she is looking forward to subacute rehab to improve her function although she is a nonweightbearing on the affected limb for at least 6 weeks by orthopedic recommendations Review of Systems Review of Systems: Mild distress and fatigue no headache, blurry or double vision no speech or swallowing issues no chest pain, pressure or palpitations no shortness of breath, cough or wheezes no abdominal pain, nausea or vomiting, diarrhea or constipation no dysuria, hematuria or frequency Patient has right thigh and hip pain especially worse with movement she does have some peripheral swelling no back pain, CVA tenderness or radicular pain no bruising, bleeding or rashes no focal signs of weakness or numbness or altered sensation no complaints or anxiety or depression. Physical Exam Physical Exam: The patient appeared chronically ill but near her usual state as I previously been around this [employer] while hospitalized Vital signs as documented. Head exam is normocephalic atraumatic no scleral icterus Neck is without JVD, thyromegaly, or carotid bruits. Lungs are clear to auscultation, no focal loss of breath sounds Cardiac exam, Rhythm is regular.. No murmurs, rubs or gallops. Abdominal exam reveals normal bowel sounds, soft non tender, no masses Extremities are mildly edematous right greater than left and both pedal pulses are normal. Neurologic exam is alert and oriented, she is of slow mentation but she is intact no focal loss of strength or sensation however the affected limb cannot be tested due to pain and splinting Psychologically is without concerns for acute depression Results & Data Results & Data ([facility]) Vital Signs (Past 12 Hours) Vital Signs Temp Pulse Pulse Resp BP Pulse Ox 11/09/19 15:42 99.0 F 87 18 111/66 96 11/09/19 07:28 98.2 F 79 16 121/74 99 11/09/19 06:39 77 18 98 PG Care Time/CCT Total # of Minutes Spent Total Time Spent with Patient: Total time spent is greater than 50% in coordination of care (as documented) at patient's floor/unit and/or counseling patient: Coding Level of Care Code 87862 Subseq Hosp Care Lvl 2 Diagnoses Case management patient Closed fracture of right distal femur S72.401A Weakness R53.1 Liver cirrhosis secondary to STEVE K75.81; K74.60 Seizure disorder G40.909 Diabetes E11.69; Z79.4 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 complication status: with other specified complication 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 alf insulin use: with termite control servicer use 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 type: type 2 Severe persistent asthma J45.50 Asthma complication type: uncomplicated Major depressive disorder with psychotic features F32.3 Blanca's thyroiditis E06.3 GERD (gastroesophageal reflux disease) K21.9 Esophagitis presence: esophagitis presence not specified Hx of migraines Z86.69 DVT prophylaxis Z29.9 (1) Diabetes 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 complication status: with other specified complication 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 alf insulin use: with alf use 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 type: type 2 Qualified Code(s): E11.69 - Type 2 diabetes mellitus with other specified complication; Z79.4 - penitentiary (current) use of insulin (2) Severe persistent asthma Asthma complication type: uncomplicated Qualified Code(s): J45.50 - Severe persistent asthma, uncomplicated (3) GERD (gastroesophageal reflux disease) Esophagitis presence: esophagitis presence not specified Qualified Code(s): K21.9 - Gastro-esophageal reflux disease without esophagitis
[2019-11-09] MEDS: SENNA 8.6 MG TAB PO SCH (21:02)
[2019-11-10] MEDS: OXYCODONE HCL IR 5 MG TAB (IMMEDIATE RELEASE) PO PRN (00:19)
[2019-11-10] MEDS: ALBUT/IPRATROP 3MG/0.5MG NEB 3 ML VIAL INH PRN (01:46)
[2019-11-10] MEDS: ACETAMINOPHEN 500 MG TAB PO SCH ×4 (05:35→22:09)
[2019-11-10] MEDS: LEVOTHYROXINE SODIUM 50 MCG TABLET PO SCH (05:35)
[2019-11-10] MEDS: ESCITALOPRAM OXALATE 10 MG TAB PO SCH (08:24)
[2019-11-10] MEDS: TOPIRAMATE 100 MG TAB PO SCH ×3 (08:24→22:10)
[2019-11-10] MEDS: DOCUSATE SODIUM 100 MG CAP PO SCH ×4 (08:24→22:11)
[2019-11-10] MEDS: levETIRAcetam 500 MG TAB PO SCH ×3 (08:24→22:10)
[2019-11-10] MEDS: SPIRONOLACTONE 25 MG TAB PO SCH (08:25)
[2019-11-10] MEDS: RIFAXIMIN 550 MG TABLET PO SCH ×3 (08:25→22:11)
[2019-11-10] MEDS: PANTOprazole 40 MG TAB PO SCH (08:25)
[2019-11-10] MEDS: LORATADINE 10 MG TAB PO SCH (08:26)
[2019-11-10] MEDS: MAGNESIUM OXIDE 400 MG TAB PO SCH ×3 (08:26→22:10)
[2019-11-10] MEDS: OXcarbazepine 150 MG TABLET PO SCH ×4 (08:26→22:10)
[2019-11-10] MEDS: LACTULOSE SYRUP 30 GM/45 ML UDP PO SCH (08:26)
[2019-11-10] MEDS: ENOXAPARIN INJ 40 MG/0.4 ML SYR SQ SCH (08:26)
[2019-11-10] MEDS: INSULIN DEGLUDEC 100 UNITS/ML SQ SCH (08:27)
[2019-11-10] MEDS: INSULIN ASPART 100 UNITS/ML 3 ML PEN SC SCH ×4 (08:29→22:11)
[2019-11-10 08:58] LABS: Basophils # (auto) 0.02 K/uL (0-0.2); Basophils % (auto) 0.5 %; Eosinophils # (auto) 0.22 K/uL (0-0.5); Hematocrit (blood only) 28.9 % (37-47); Hemoglobin 10.3 g/dL (12.0-16.0); Lymphocytes % (auto) 18.2 %; Mean Corpuscular Hemoglobin 34.2 pg (25-34); Mean Corpuscular Hgb Conc 35.6 g/dL (32-36); Monocytes # (auto) 0.44 K/uL (0.11-0.59); Neutrophils # (auto) 2.91 K/uL (1.4-6.5); Neutrophils % (auto) 66.3 %; Platelet Count 136 K/uL (130-400); RDW Coefficient of Variation 18.4 % (11.5-14.5); RDW Standard Deviation 63.2 fL (36.4-46.3); Red Blood Count 3.01 M/uL (4.2-5.4); White Blood Count 4.39 K/uL (4.8-10.8)
[2019-11-10 09:23] LABS: Albumin Level 2.4 gm/dl (3.4-5.0); BUN Creatinine Ratio 16.3 (10-20); Bilirubin Direct 0.9 mg/dl (0-0.2); Calcium 7.5 mg/dl (8.5-10.1); Creatinine Clr Calc Pharmacy 154.5 ml/min; Est GFR (African American) 129.8; Potassium 4.1 mmol/L (3.5-5.1)
[2019-11-10 09:26] LABS: Bilirubin,Total 2.1 mg/dl (0.2-1); Total Protein 5.4 gm/dl (6.4-8.2)
[2019-11-10] MEDS: VITAMIN B COMPLEX TAB PO SCH (12:23)
[2019-11-10] MEDS: MULTIVITAMIN TAB PO SCH (12:23)
[2019-11-10] MEDS: MAGNESIUM CHLORIDE 64MG DELAYED REL TAB PO SCH (12:23)
[2019-11-10] MEDS: ZINC SULFATE 220 MG CAPSULE PO SCH (12:24)
[2019-11-10] MEDS: CHOLECALCIFEROL 1,000 UNITS 25 MCG TAB PO SCH (12:24)
[2019-11-10] MEDS ORDERED: LORazepam 0.5 MG/1 ML VIAL IV PRN (15:00)
--- NOTE | 2019-11-10 16:01 | XRay Report ---
AP CHEST WITH ABDOMINAL SERIES CLINICAL HISTORY: Ileus. FINDINGS: An AP upright chest radiograph is compared to study dated 10/31/2019. The examination is significantly degraded by patient rotation. A right-sided central venous infusion port is unchanged in position. Th e heart is enlarged. The pulmonary vasculature is noncongested. Chronic interstitial thickening is si milar to previous. No airspace consolidation or large pleural effusion is identified. Atelectasis is noted at the lung bases. No pneumothorax is seen. The skeletal structures are osteopenic. There is ch ronic posttraumatic deformity and postoperative change is seen in the left humerus. Supine and erect abdominal radiographs are compared to study dated 02/09/2019 and correlated with abd ominal CT dated 02/23/2018. There is a nonobstructed abdominal bowel gas pattern. No evidence of intr aperitoneal free air is seen. There are no abnormal abdominal calcifications. Postoperative change an d chronic posttraumatic deformity is partially visualized in the right hip. IMPRESSION: 1. Cardiac enlargement with no acute cardiopulmonary abnormality. 2. Nonobstructed abdominal bowel gas pattern. ACT 112: Negative or not required by law. Electronically signed by: Aiden Randolph M.D. 11/10/2019 3:59 PM
--- NOTE | 2019-11-10 18:06 | Hospitalist Progress Note ---
Date of Service November 10, 2019 Assessment & Plan (1) Case management patient: Patient is relatively stable at this point time she is complaining of various somatic complaints but nothing specific or focal we are waiting on case management to continue to pursue the target process for placement for rehab and to a senior living facility for her spiral femur fracture status post surgical repair which will likely take greater than 30 days for rehab as she is 6 weeks nonweightbearing. on 11/09 concern for decreased stool output and urinary frequency, will check ua and increase lactulose (2) Closed fracture of right distal femur: Periprosthetic fracture around previous IM nail in right femur, as a result of mechanical fall at home. Right hip x-rays on 11/01 show: "Acute, distracted, and angulated spiral fracture of the distal femoral shaft around the inferior end of the intramedullary nail." - S/p right ORIF with Dr. Thrasher on 11/04/2019. Dressing changed on 11/06 and ortho feel surgical site looking good. - Non-weightbearing right leg x 6-8 weeks. Ortho will get Q2week x-rays to monitor bone bridging to make final determination. - Pain control - Expected acute blood loss anemia in setting of femoral fracture; received a total of 4 units of PRBCs rogelio-operatively. Hgb is stable in the 8.99 g range, drain removed by orthopedics. - PT/OT/CM for placement. Target process required. Psychological evaluation performed 11/08/2019 (3) Weakness: Due to fall, broken femur, and anemia. Cultures negative x 48 hours. Labs within normal limits apart from anemia as above. - PT/OT as above - CM for placement. Be targeted process dependent upon state for approval Chronic gait disorder - patient mostly in wheelchair at home. -Despite providing care for her at home with regard to her gait disturbance is supportive of rehab placement - PT/OT ordered in the hospital. (4) Liver cirrhosis secondary to STEVE: Patient with liver cirrhosis secondary to STEVE, portal hypertension. Patient follows with gastroenterology, last seen by Dr. Toledo on 04/20/19. HCV screening has been completed and is negative. AFP on 03/09/2019 = 2.6. INR = 1.4 - Continue lactulose & rifaximin patient did have bowel movement on - Continue zinc supplementation 50 mg daily - Continue Aldactone for lower extremity edema - Low sodium diet as tolerated - Avoid hepatotoxic agents (5) Seizure disorder: Patient with history of seizure. She follows with neurology, last seen on 04/02/19. EEG completed in May 2018 revealed a generalized spike and slow wave abnormality consistent with an underlying generalized seizure disorder. Patient had an MRI brain completed in October 2017 which was unremarkable. Patient failed VNS placement in the past, device was explanted. Presently on topiramate, Trileptal and Keppra. She was recently seen in the ER on 05/17/19 with report of seizures x 4 at home with a 5th seizure witnessed in triage - shaking her head and upper extremities. After consultation with Neurology, her oxcarbazepine was increased to 600mg po BID. - Continue topiramate 100 mg p.o. twice daily - Continue Trileptal 300 mg p.o. every morning and 600 mg p.o. nightly (this is different from above, but confirms this is current dosing) - Continue Keppra 1500 mg p.o. twice daily (6) Diabetes: Last hemoglobin A1c=4.6% on 10/20/19. Patient follows with Endocrinology/Diabetes education. - Continue Tresiba 10 units subcu every morning - Sliding scale insulin - Sugars 170 - 215 in last 24 hours. Overnight sugar seems stable, but goes up with meals. Will increase meal-time and correction factor today (11/06) Patient request to speak to diabetic educators to application trainer on 11/09/2019 consult was placed (7) Severe persistent asthma: History of persistent asthma. She has seen Pulmonary as well as Allergy/Immunology in the past. Spirometry performed on 04/23/19 with FVC=1.37, 38% predicted. FEV1=1.18, 40% predicted and FEV1/FVC=86%. Suggestive of restrictive process vs obstruction with air trapping. Study limited. Formal PFTs ordered, not yet completed. -Patient is stable at this time - DuoNebs PRN (8) Major depressive disorder with psychotic features: Chronic. Stable. Patient presently not on any medications. She will be evaluated by inpatient psychiatry for targeting process (9) Blanca's thyroiditis: TSH = 1.56. - Continue Synthroid (10) GERD (gastroesophageal reflux disease): Chronic. Stable. - Continue PPI (11) Hx of migraines: Patient with episodic migraines. Well-controlled. - Continue topiramate - Patient has used Maxalt in the past with success for migraine relief if needed (12) DVT prophylaxis: Lovenox 40 mg SQ daily per surgery Admission and Anticipated Discharge Date Admission Date: November 02, 2019 Subjective This pt has persistent somatic complaints but has a history of poor coping skills, she is fatigued and deconditioned she is looking forward to subacute rehab to improve her function although she is a nonweightbearing on the affected limb for at least 6 weeks by orthopedic recommendations Review of Systems Review of Systems: Mild distress and fatigue no headache, blurry or double vision no speech or swallowing issues no chest pain, pressure or palpitations no shortness of breath, cough or wheezes no abdominal pain, nausea or vomiting, diarrhea or constipation no dysuria, hematuria or frequency Patient has right thigh and hip pain especially worse with movement she does have some peripheral swelling no back pain, CVA tenderness or radicular pain no bruising, bleeding or rashes no focal signs of weakness or numbness or altered sensation no complaints or anxiety or depression. Physical Exam Physical Exam: The patient appeared chronically ill but near her usual state as I previously been around this [employer] while hospitalized Vital signs as documented. Head exam is normocephalic atraumatic no scleral icterus Neck is without JVD, thyromegaly, or carotid bruits. Lungs are clear to auscultation, no focal loss of breath sounds Cardiac exam, Rhythm is regular.. No murmurs, rubs or gallops. Abdominal exam reveals normal bowel sounds, soft non tender, no masses Extremities are mildly edematous right greater than left and both pedal pulses are normal. Neurologic exam is alert and oriented, she is of slow mentation but she is intact no focal loss of strength or sensation however the affected limb cannot be tested due to pain and splinting Psychologically is without concerns for acute depression Results & Data Results & Data ([facility]) Vital Signs (Past 12 Hours) Vital Signs Temp Pulse Resp BP Pulse Ox 11/10/19 15:10 98.4 F 102 H 16 151/72 H 94 11/10/19 07:07 98.2 F 91 H 16 123/62 100 PG Care Time/CCT Total # of Minutes Spent Total Time Spent with Patient: Total time spent is greater than 50% in coordination of care (as documented) at patient's floor/unit and/or counseling patient: Coding Level of Care Code 03447 Subseq Hosp Care Lvl 2 Diagnoses Case management patient Closed fracture of right distal femur S72.401A Weakness R53.1 Liver cirrhosis secondary to STEVE K75.81; K74.60 Seizure disorder G40.909 Diabetes E11.69; Z79.4 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 complication status: with other specified complication 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 shelter insulin use: with terminal computer operator use 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 type: type 2 Severe persistent asthma J45.50 Asthma complication type: uncomplicated Major depressive disorder with psychotic features F32.3 Blanca's thyroiditis E06.3 GERD (gastroesophageal reflux disease) K21.9 Esophagitis presence: esophagitis presence not specified Hx of migraines Z86.69 DVT prophylaxis Z29.9 (1) Diabetes 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 complication status: with other specified complication 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 terminal computer operator insulin use: with shelter use 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 type: type 2 Qualified Code(s): E11.69 - Type 2 diabetes mellitus with other specified complication; Z79.4 - alf (current) use of insulin (2) Severe persistent asthma Asthma complication type: uncomplicated Qualified Code(s): J45.50 - Severe persistent asthma, uncomplicated (3) GERD (gastroesophageal reflux disease) Esophagitis presence: esophagitis presence not specified Qualified Code(s): K21.9 - Gastro-esophageal reflux disease without esophagitis
[2019-11-10] MEDS ORDERED: LACTULOSE 200 GM, WATER, STERILE IRRIG 700 ML, BARCODE IDENTIFIER 1 EA PR PRN (18:08)
[2019-11-10 20:10] LABS: Basophils # (auto) 0.02 K/uL (0-0.2); Basophils % (auto) 0.5 %; Eosinophils # (auto) 0.09 K/uL (0-0.5); Eosinophils % (auto) 2.3 %; Hematocrit (blood only) 27.1 % (37-47); Hemoglobin 9.4 g/dL (12.0-16.0); Immature Granulocytes # (auto) 0.01 K/uL (0.00-0.02); Immature Granulocytes % (auto) 0.3 %; Lymphocytes # (auto) 0.54 K/uL (1.2-3.4); Lymphocytes % (auto) 13.7 %; Mean Corpuscular Hemoglobin 33.6 pg (25-34); Mean Corpuscular Volume 96.8 fL (80-100); Mean Platelet Volume 9.3 fL (7.4-10.4); Monocytes # (auto) 0.39 K/uL (0.11-0.59); Monocytes % (auto) 9.9 %; Neutrophils # (auto) 2.88 K/uL (1.4-6.5); Neutrophils % (auto) 73.3 %; Platelet Count 130 K/uL (130-400); RDW Coefficient of Variation 18.5 % (11.5-14.5); RDW Standard Deviation 64.4 fL (36.4-46.3); White Blood Count 3.93 K/uL (4.8-10.8)
[2019-11-10 20:18] LABS: Mean Corpuscular Hgb Conc 34.7 g/dL (32-36)
--- NOTE | 2019-11-10 20:22 | CT Scan Report ---
CT head/brain wo con CLINICAL HISTORY: 53 years-old Female with Altered mental status. Acutely altered mental status TECHNIQUE: Multiple axial CT images of the head were obtained without contrast. A dose lowering tech nique was utilized adhering to the principles of ALARA. CT DOSE: 1228.24 mGy.cm COMPARISON: Head CT 10/19/2019. FINDINGS: No acute intracranial hemorrhage, midline shift, intracranial mass, hydrocephalus, territorial ischem ia or abnormal extra-axial collection. The calvarium is intact. Prior bilateral lens replacement. The paranasal sinuses, mastoid air cells, and middle ear cavities are clear. IMPRESSION: No acute intracranial abnormality. ACT 112: Negative or not required by law. The above report was generated using voice recognition software. It may contain grammatical, syntax o r spelling errors. Electronically signed by: Deion Segura M.D. 11/10/2019 8:21 PM
[2019-11-10 20:26] LABS: Albumin Level 2.2 gm/dl (3.4-5.0); BUN Creatinine Ratio 12.4 (10-20); Calcium 7.4 mg/dl (8.5-10.1); Creatinine Clr Calc Pharmacy 154.5 ml/min; Est GFR (African American) 129.8; Potassium 3.9 mmol/L (3.5-5.1)
[2019-11-10 20:29] LABS: Albumin Globulin Ratio 0.8 (0.9-2); Bilirubin,Total 1.9 mg/dl (0.2-1); Globulin 2.9 gm/dl (2.5-4.0); Total Protein 5.1 gm/dl (6.4-8.2)
[2019-11-10] MEDS ORDERED: LACTULOSE SYRUP 30 GM/45 ML UDP PO SCH (21:00)
[2019-11-10] MEDS: SENNA 8.6 MG TAB PO SCH ×2 (21:26→22:00)
[2019-11-10 21:56] LABS: Allen Test Pos (Pos); Base Excess ABG -2.9 mEq/L (-9-1.8); HCO3 ABG 21 mmol/L (19-24); Oxygen Saturation ABG 96.1 % (90-95); PCO2 ABG 35 mmHg (35-46); PO2 ABG 82 mmHg (80-95); pH ABG 7.41 (7.35-7.45)
[2019-11-10] MEDS: LACTULOSE SYRUP 10 GM/15 ML BTL 960 ML PO SCH (22:17)
--- NOTE | 2019-11-11 01:21 | Communication Note ---
Date of Service: November 11, 2019 Marcelle Munson had acute episode of altered mental status including about 3 minutes of being mostly unresponsive to painful stimuli, vitals, breathing, oxyg enation all stable throughout code purple was called. Patient quickly came around but we will get a CT head, ammonia level and increasing lactulose to 30 mg q1h to liquid bowel movement or enema if unable to tolerate.
[2019-11-11] MEDS: LACTULOSE SYRUP 10 GM/15 ML BTL 960 ML PO SCH ×4 (02:28→03:28)
[2019-11-11] MEDS: LEVOTHYROXINE SODIUM 50 MCG TABLET PO SCH (05:36)
[2019-11-11] MEDS: ACETAMINOPHEN 500 MG TAB PO SCH ×3 (05:36→21:32)
[2019-11-11 06:40] LABS: Albumin Level 1.9 gm/dl (3.4-5.0); Bilirubin Direct 0.8 mg/dl (0-0.2); Bilirubin,Total 1.8 mg/dl (0.2-1); Total Protein 4.4 gm/dl (6.4-8.2)
--- NOTE | 2019-11-11 07:41 | XRay Report ---
XR chest 1V portable CLINICAL HISTORY: aspiration on liquids COMPARISON STUDY: 11/10/2019 FINDINGS: Lungs are considered clear. Mild stable cardiomegaly. Central catheter in superior vena cav a. Postoperative changes to the left humerus and left shoulder. IMPRESSION: Lungs are clear. No acute process. ACT 112: Negative or not required by law. The above report was generated using voice recognition software. It may contain grammatical, syntax or spelling errors. Electronically signed by: Kenroy Yates M.D. 11/11/2019 7:39 AM
[2019-11-11] MEDS: INSULIN ASPART 100 UNITS/ML 3 ML PEN SC SCH ×5 (09:03→21:43)
[2019-11-11] MEDS: NITROFURANTOIN MONOHYDRATE 100 MG CAP PO SCH ×2 (09:51→21:32)
[2019-11-11] MEDS: OXYCODONE HCL IR 5 MG TAB (IMMEDIATE RELEASE) PO PRN ×2 (09:51→21:30)
[2019-11-11] MEDS: levETIRAcetam 500 MG TAB PO SCH ×2 (09:52→21:33)
[2019-11-11] MEDS: RIFAXIMIN 550 MG TABLET PO SCH ×2 (09:52→21:32)
[2019-11-11] MEDS: SPIRONOLACTONE 25 MG TAB PO SCH (09:53)
[2019-11-11] MEDS: DOCUSATE SODIUM 100 MG CAP PO SCH ×2 (09:53→21:34)
[2019-11-11] MEDS: PANTOprazole 40 MG TAB PO SCH (09:54)
[2019-11-11] MEDS: ESCITALOPRAM OXALATE 10 MG TAB PO SCH (09:54)
[2019-11-11] MEDS: TOPIRAMATE 100 MG TAB PO SCH ×2 (09:54→21:34)
[2019-11-11] MEDS: MAGNESIUM OXIDE 400 MG TAB PO SCH ×2 (09:55→21:34)
[2019-11-11] MEDS: LORATADINE 10 MG TAB PO SCH (09:55)
[2019-11-11] MEDS: ENOXAPARIN INJ 40 MG/0.4 ML SYR SQ SCH (09:56)
[2019-11-11] MEDS: INSULIN DEGLUDEC 100 UNITS/ML SQ SCH (09:57)
[2019-11-11] MEDS: OXcarbazepine 150 MG TABLET PO SCH ×2 (09:58→21:31)
[2019-11-11] MEDS: VITAMIN B COMPLEX TAB PO SCH (12:22)
[2019-11-11] MEDS: MULTIVITAMIN TAB PO SCH (12:22)
[2019-11-11] MEDS: MAGNESIUM CHLORIDE 64MG DELAYED REL TAB PO SCH (12:22)
[2019-11-11] MEDS: CHOLECALCIFEROL 1,000 UNITS 25 MCG TAB PO SCH (12:22)
[2019-11-11] MEDS: ZINC SULFATE 220 MG CAPSULE PO SCH (12:23)
[2019-11-11] MEDS: HEPARIN 100 UNIT/ML 5ML FLUSH FLUSH PRN (13:37)
[2019-11-11] MEDS: PROMETHAZINE HCL 25 MG TAB PO PRN (13:37)
--- NOTE | 2019-11-11 17:51 | Hospitalist Progress Note ---
Date of Service November 11, 2019 Assessment & Plan (1) Hepatic encephalopathy: Patient had an episode of hepatic encephalopathy in the evening of 11/10/2019. She had the decreased responsiveness and her ammonia was checked and found to be elevated from her baseline of the 70-80 range. Patient had persistent bowel movements and did have her lactulose increased. On the morning of 11/10 she is back to her normal self her encephalopathy is resolved her ammonia is back down to the 70-80 range (2) Case management patient: Continue waiting on case management to continue to pursue the target process for placement for rehab and to a [facility] facility for her spiral femur fracture status post surgical repair which will likely take greater than 30 days for rehab as she is 6 weeks nonweightbearing. (3) Closed fracture of right distal femur: Periprosthetic fracture around previous IM nail in right femur, as a result of mechanical fall at home. Right hip x-rays on 11/01 show: "Acute, distracted, and angulated spiral fracture of the distal femoral shaft around the inferior end of the intramedullary nail." - S/p right ORIF with Dr. Thrasher on 11/04/2019. Dressing changed on 11/06 and ortho feel surgical site looking good. - Non-weightbearing right leg x 6-8 weeks. Ortho will get Q2week x-rays to monitor bone bridging to make final determination. - Pain control - Expected acute blood loss anemia in setting of femoral fracture; received a total of 4 units of PRBCs rogelio-operatively. Hgb is stable in the 8.99 g range, drain removed by orthopedics. - PT/OT/CM for placement. Target process required. Psychological evaluation performed 11/08/2019 (4) Liver cirrhosis secondary to STEVE: Patient with liver cirrhosis secondary to STEVE, portal hypertension. Patient follows with gastroenterology, last seen by Dr. Toledo on 04/20/19. HCV screening has been completed and is negative. AFP on 03/09/2019 = 2.6. INR = 1.4 - Continue lactulose & rifaximin - Continue zinc supplementation 50 mg daily - Continue Aldactone for lower extremity edema - Low sodium diet as tolerated - Avoid hepatotoxic agents (5) Seizure disorder: Patient with history of seizure. She follows with neurology, last seen on 04/02/19. EEG completed in May 2018 revealed a generalized spike and slow wave abnormality consistent with an underlying generalized seizure disorder. Patient had an MRI brain completed in October 2017 which was unremarkable. Patient failed VNS placement in the past, device was explanted. Presently on topiramate, Trileptal and Keppra. She was recently seen in the ER on 05/17/19 with report of seizures x 4 at home with a 5th seizure witnessed in triage - shaking her head and upper extremities. After consultation with Neurology, her oxcarbazepine was increased to 600mg po BID. - Continue topiramate 100 mg p.o. twice daily - Continue Trileptal 300 mg p.o. every morning and 600 mg p.o. nightly (this is different from above, but confirms this is current dosing) - Continue Keppra 1500 mg p.o. twice daily (6) Diabetes: Last hemoglobin A1c=4.6% on 10/20/19. Patient follows with Endocrinology/Diabetes education. - Continue Tresiba 10 units subcu every morning - Sliding scale insulin (7) Severe persistent asthma: History of persistent asthma. She has seen Pulmonary as well as Allergy/Immunology in the past. Spirometry performed on 04/23/19 with FVC=1.37, 38% predicted. FEV1=1.18, 40% predicted and FEV1/FVC=86%. Suggestive of restrictive process vs obstruction with air trapping. Study limited. Formal PFTs ordered, not yet completed. -Patient is stable at this time - DuoNebs PRN (8) Major depressive disorder with psychotic features: Chronic. Stable. Patient presently not on any medications. She was evaluated by inpatient psychiatry for targeting process (9) Blanca's thyroiditis: TSH = 1.56. - Continue Synthroid (10) GERD (gastroesophageal reflux disease): Chronic. Stable. - Continue PPI (11) Hx of migraines: Patient with episodic migraines. Well-controlled. - Continue topiramate - Patient has used Maxalt in the past with success for migraine relief if needed (12) DVT prophylaxis: Lovenox 40 mg SQ daily per surgery Admission and Anticipated Discharge Date Admission Date: November 02, 2019 Subjective Patient had hepatic encephalopathy episode on 11/09 she was continue to be encouraged to take her lactulose and today her ammonia is down and her mental status is much better. There is some concern of her continued to request a urinary catheter urinalysis has been ordered but not resulted and urinary catheter will be placed. There is also concerned that increasing stool production does soil her knee immobilizer which is splinting her distal femur spiral fracture however were doing her best to manage her pneumonia, encephalopathy, and splinting needs she is looking forward to subacute rehab to improve her function although she is a nonweightbearing on the affected limb for at least 6 weeks by orthopedic recommendations Review of Systems Review of Systems: Mild distress and fatigue encephalopathy from the evening of 11/09 has improved no headache, blurry or double vision no speech or swallowing issues no chest pain, pressure or palpitations no shortness of breath, cough or wheezes no abdominal pain, nausea or vomiting, diarrhea or constipation Complains of feeling urinary frequency requesting catheter Patient has right thigh and hip pain especially worse with movement she does have some peripheral swelling no back pain, CVA tenderness or radicular pain no bruising, bleeding or rashes no focal signs of weakness or numbness or altered sensation no complaints or anxiety or depression. Physical Exam Physical Exam: The patient appeared chronically ill but near her usual state as I previously been around this [employer] while hospitalized Vital signs as documented. Head exam is normocephalic atraumatic no scleral icterus Neck is without JVD, thyromegaly, or carotid bruits. Lungs are clear to auscultation, no focal loss of breath sounds Cardiac exam, Rhythm is regular.. No murmurs, rubs or gallops. Abdominal exam reveals normal bowel sounds, soft non tender, no masses Extremities are mildly edematous right greater than left and both pedal pulses are normal. Neurologic exam is alert and oriented, she is of slow mentation but she is intact no focal loss of strength or sensation however the affected limb cannot be tested due to pain and splinting Psychologically is without concerns for acute depression Results & Data Results & Data ([facility]) Vital Signs (Past 12 Hours) Vital Signs Temp Pulse Pulse Resp BP Pulse Ox 11/11/19 15:52 98.1 F 81 18 144/68 H 99 11/11/19 11:13 98.8 F 89 16 122/63 95 11/11/19 08:00 76 11/11/19 07:16 99.1 F 79 16 113/68 97 PG Care Time/CCT Total # of Minutes Spent Total Time Spent with Patient: Total time spent is greater than 50% in coordination of care (as documented) at patient's floor/unit and/or counseling patient: Coding Level of Care Code 64735 Subseq Hosp Care Lvl 3 Diagnoses Hepatic encephalopathy K72.90 Case management patient Closed fracture of right distal femur S72.401A Liver cirrhosis secondary to STEVE K75.81; K74.60 Seizure disorder G40.909 Diabetes E11.69; Z79.4 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 complication status: with other specified complication 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 termite inspector insulin use: with termite inspector use 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 type: type 2 Severe persistent asthma J45.50 Asthma complication type: uncomplicated Major depressive disorder with psychotic features F32.3 Blanca's thyroiditis E06.3 GERD (gastroesophageal reflux disease) K21.9 Esophagitis presence: esophagitis presence not specified Hx of migraines Z86.69 DVT prophylaxis Z29.9 (1) Diabetes 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 complication status: with other specified complication 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 termite inspector insulin use: with nursing home use 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 type: type 2 Qualified Code(s): E11.69 - Type 2 diabetes mellitus with other specified complication; Z79.4 - [facility] (current) use of insulin (2) Severe persistent asthma Asthma complication type: uncomplicated Qualified Code(s): J45.50 - Severe persistent asthma, uncomplicated (3) GERD (gastroesophageal reflux disease) Esophagitis presence: esophagitis presence not specified Qualified Code(s): K21.9 - Gastro-esophageal reflux disease without esophagitis
[2019-11-11] MEDS: SENNA 8.6 MG TAB PO SCH (21:35)
[2019-11-12] MEDS: OXYCODONE HCL IR 5 MG TAB (IMMEDIATE RELEASE) PO PRN ×2 (04:23→21:13)
[2019-11-12] MEDS: ACETAMINOPHEN 500 MG TAB PO SCH ×3 (04:23→21:40)
[2019-11-12] MEDS: LEVOTHYROXINE SODIUM 50 MCG TABLET PO SCH (04:24)
[2019-11-12] MEDS: INSULIN ASPART 100 UNITS/ML 3 ML PEN SC SCH ×4 (09:23→20:55)
[2019-11-12] MEDS: PANTOprazole 40 MG TAB PO SCH (09:24)
[2019-11-12] MEDS: OXcarbazepine 150 MG TABLET PO SCH ×2 (09:25→20:50)
[2019-11-12] MEDS: levETIRAcetam 500 MG TAB PO SCH ×2 (09:26→20:50)
[2019-11-12] MEDS: LORATADINE 10 MG TAB PO SCH (09:26)
[2019-11-12] MEDS: SPIRONOLACTONE 25 MG TAB PO SCH (09:27)
[2019-11-12] MEDS: DOCUSATE SODIUM 100 MG CAP PO SCH ×3 (09:27→20:50)
[2019-11-12] MEDS: MAGNESIUM OXIDE 400 MG TAB PO SCH ×2 (09:28→20:50)
[2019-11-12] MEDS: NITROFURANTOIN MONOHYDRATE 100 MG CAP PO SCH ×2 (09:28→20:50)
[2019-11-12] MEDS: ENOXAPARIN INJ 40 MG/0.4 ML SYR SQ SCH ×2 (09:28→09:42)
[2019-11-12] MEDS: ESCITALOPRAM OXALATE 10 MG TAB PO SCH (09:29)
[2019-11-12] MEDS: TOPIRAMATE 100 MG TAB PO SCH ×2 (09:29→20:50)
[2019-11-12] MEDS: INSULIN DEGLUDEC 100 UNITS/ML SQ SCH (09:30)
[2019-11-12] MEDS: RIFAXIMIN 550 MG TABLET PO SCH ×2 (09:31→20:50)
[2019-11-12] MEDS: LACTULOSE SYRUP 30 GM/45 ML UDP PO SCH ×2 (11:44→20:54)
[2019-11-12] MEDS: VITAMIN B COMPLEX TAB PO SCH (11:45)
[2019-11-12] MEDS: MAGNESIUM CHLORIDE 64MG DELAYED REL TAB PO SCH (11:45)
[2019-11-12] MEDS: MULTIVITAMIN TAB PO SCH (11:45)
[2019-11-12] MEDS: CHOLECALCIFEROL 1,000 UNITS 25 MCG TAB PO SCH (11:45)
[2019-11-12] MEDS: ZINC SULFATE 220 MG CAPSULE PO SCH (12:40)
--- NOTE | 2019-11-12 13:53 | Hospitalist Progress Note ---
Date of Service November 12, 2019 Assessment & Plan (1) Hepatic encephalopathy: Patient had an episode of hepatic encephalopathy in the evening of 11/10/2019. Acute hepatic encephalopathy causing AMS and unresponsiveness treated with lactulose and head CT. She had the decreased responsiveness and her ammonia was checked and found to be elevated from her baseline of the 70-80 range. Patient had persistent bowel movements and did have her lactulose increased. she remains in her normal self her encephalopathy is resolved her lactulose is restarted (2) Case management patient: Continue waiting on case management to continue to pursue the target p rocess for placement for rehab and to a care home facility for her spiral femur fracture status post surgical repair which will likely take greater than 30 days for rehab as she is 6 weeks nonweightbearing. (3) Closed fracture of right distal femur: Periprosthetic fracture around previous IM nail in right femur, as a result of mechanical fall at home. Right hip x-rays on 11/01 show: "Acute, distracted, and angulated spiral fracture of the distal femoral shaft around the inferior end of the intramedullary nail." - S/p right ORIF with Dr. Thrasher on 11/04/2019. Dressing changed on 11/06 and ortho feel surgical site looking good. - Non-weightbearing right leg x 6-8 weeks. Ortho will get Q2week x-rays to monitor bone bridging to make final determination. - Pain control - Expected acute blood loss anemia in setting of femoral fracture; received a total of 4 units of PRBCs rogelio-operatively. Hgb is stable in the 8.99 g range, drain removed by orthopedics. - PT/OT/CM for placement. Target process required. Psychological evaluation performed 11/08/2019 (4) Liver cirrhosis secondary to STEVE: Patient with liver cirrhosis secondary to STEVE, portal hypertension. Patient follows with gastroenterology, last seen by Dr. Toledo on 04/20/19. HCV screening has been completed and is negative. AFP on 03/09/2019 = 2.6. INR = 1.4 - Continue lactulose & rifaximin - Continue zinc supplementation 50 mg daily - Continue Aldactone for lower extremity edema - Low sodium diet as tolerated - Avoid hepatotoxic agents (5) Seizure disorder: Patient with history of seizure. She follows with neurology, last seen on 04/02/19. EEG completed in May 2018 revealed a generalized spike and slow wave abnormality consistent with an underlying generalized seizure disorder. Patient had an MRI brain completed in October 2017 which was unremarkable. Patient failed VNS placement in the past, device was explanted. Presently on topiramate, Trileptal and Keppra. She was recently seen in the ER on 05/17/19 with report of seizures x 4 at home with a 5th seizure witnessed in triage - shaking her head and upper extremities. After consultation with Neurology, her oxcarbazepine was increased to 600mg po BID. - Continue topiramate 100 mg p.o. twice daily - Continue Trileptal 300 mg p.o. every morning and 600 mg p.o. nightly (this is different from above, but confirms this is current dosing) - Continue Keppra 1500 mg p.o. twice daily (6) Diabetes: Last hemoglobin A1c=4.6% on 10/20/19. Patient follows with Endocrinology/Diabetes education. - Continue Tresiba 10 units subcu every morning - Sliding scale insulin (7) Severe persistent asthma: History of persistent asthma. She has seen Pulmonary as well as Allergy/Immunology in the past. Spirometry performed on 04/23/19 with FVC=1.37, 38% predicted. FEV1=1.18, 40% predicted and FEV1/FVC=86%. Suggestive of restrictive process vs obstruction with air trapping. Study limited. Formal PFTs ordered, not yet completed. -Patient is stable at this time - DuoNebs PRN (8) Major depressive disorder with psychotic features: Chronic. Stable. Patient presently not on any medications. She was evaluated by inpatient psychiatry for targeting process (9) Blanca's thyroiditis: TSH = 1.56. - Continue Synthroid (10) GERD (gastroesophageal reflux disease): Chronic. Stable. - Continue PPI (11) Hx of migraines: Patient with episodic migraines. Well-controlled. - Continue topiramate - Patient has used Maxalt in the past with success for migraine relief if needed (12) DVT prophylaxis: Lovenox 40 mg SQ daily per surgery Admission and Anticipated Discharge Date Admission Date: November 02, 2019 Subjective Patient had hepatic encephalopathy episode on 11/09 she was continue to be encouraged to take her lactulose and today her ammonia is down and her mental status is much better. There is some concern of her continued to request a urinary catheter urinalysis has been ordered but not resulted and urinary catheter will be placed. There is also concerned that increasing stool production does soil her knee immobilizer which is splinting her distal femur spiral fracture however were doing her best to manage her pneumonia, encephalopathy, and splinting needs she is looking forward to subacute rehab to improve her function although she is a nonweightbearing on the affected limb for at least 6 weeks by orthopedic recommendations Review of Systems Review of Systems: Mild distress and fatigue encephalopathy from the evening of 11/09 has improved no headache, blurry or double vision no speech or swallowing issues no chest pain, pressure or palpitations no shortness of breath, cough or wheezes no abdominal pain, nausea or vomiting, diarrhea or constipation Complains of feeling urinary frequency requesting catheter Patient has right thigh and hip pain especially worse with movement she does have some peripheral swelling no back pain, CVA tenderness or radicular pain no bruising, bleeding or rashes no focal signs of weakness or numbness or altered sensation no complaints or anxiety or depression. 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 Head exam is normocephalic atraumatic no scleral icterus Neck is without JVD, thyromegaly, or carotid bruits. Lungs are clear to auscultation, no focal loss of breath sounds Cardiac exam, Rhythm is regular.. No murmurs, rubs or gallops. Abdominal exam reveals normal bowel sounds, soft non tender, no masses Extremities are mildly edematous right greater than left and both pedal pulses are normal. Neurologic exam is alert and oriented, she is of slow mentation but she is intact no focal loss of strength or sensation however the affected limb cannot be tested due to pain and splinting Psychologically is without concerns for acute depression Results & Data Results & Data ([facility]) Vital Signs (Past 12 Hours) Vital Signs Temp Pulse Resp BP Pulse Ox 11/12/19 07:50 98.4 F 53 L 16 116/73 96 PG Care Time/CCT Total # of Minutes Spent Total Time Spent with Patient: Total time spent is greater than 50% in coordination of care (as documented) at patient's floor/unit and/or counseling patient: Coding Level of Care Code 77706 Subseq Hosp Care Lvl 2 Diagnoses Hepatic encephalopathy K72.90 Case management patient Closed fracture of right distal femur S72.401A Liver cirrhosis secondary to STEVE K75.81; K74.60 Seizure disorder G40.909 Diabetes E11.69; Z79.4 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 complication status: with other specified complication 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 snf insulin use: with j2ee software engineer use 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 type: type 2 Severe persistent asthma J45.50 Asthma complication type: uncomplicated Major depressive disorder with psychotic features F32.3 Blanca's thyroiditis E06.3 GERD (gastroesophageal reflux disease) K21.9 Esophagitis presence: esophagitis presence not specified Hx of migraines Z86.69 DVT prophylaxis Z29.9 (1) Diabetes 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 complication status: with other specified complication Marina betes mellitus j2ee software engineer insulin use: with snf use 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 type: type 2 Qualified Code(s): E11.69 - Type 2 diabetes mellitus with other specified complication; Z79.4 - [facility] (current) use of insulin (2) Severe persistent asthma Asthma complication type: uncomplicated Qualified Code(s): J45.50 - Severe persistent asthma, uncomplicated (3) GERD (gastroesophageal reflux disease) Esophagitis presence: esophagitis presence not specified Qualified Code(s): K21.9 - Gastro-esophageal reflux disease without esophagitis
[2019-11-12] MEDS: SENNA 8.6 MG TAB PO SCH (20:52)
[2019-11-12] MEDS ORDERED: LACTULOSE SYRUP 30 GM/45 ML UDP PO SCH (21:00)
[2019-11-13] MEDS: OXYCODONE HCL IR 5 MG TAB (IMMEDIATE RELEASE) PO PRN ×3 (01:50→21:09)
[2019-11-13] MEDS: PROMETHAZINE HCL 25 MG TAB PO PRN (03:12)
[2019-11-13] MEDS: LEVOTHYROXINE SODIUM 50 MCG TABLET PO SCH (06:07)
[2019-11-13] MEDS: ACETAMINOPHEN 500 MG TAB PO SCH ×4 (06:07→22:13)
[2019-11-13] MEDS: ALBUT/IPRATROP 3MG/0.5MG NEB 3 ML VIAL INH PRN (06:21)
[2019-11-13] MEDS ORDERED: LACTULOSE SYRUP 30 GM/45 ML UDP PO STA (08:54)
[2019-11-13] MEDS: INSULIN ASPART 100 UNITS/ML 3 ML PEN SC SCH ×4 (10:05→21:01)
[2019-11-13] MEDS: INSULIN DEGLUDEC 100 UNITS/ML SQ SCH (10:06)
[2019-11-13] MEDS: NITROFURANTOIN MONOHYDRATE 100 MG CAP PO SCH ×2 (10:12→20:58)
[2019-11-13] MEDS: VITAMIN B COMPLEX TAB PO SCH (10:12)
[2019-11-13] MEDS: MAGNESIUM OXIDE 400 MG TAB PO SCH ×2 (10:12→20:58)
[2019-11-13] MEDS: OXcarbazepine 150 MG TABLET PO SCH ×2 (10:13→20:59)
[2019-11-13] MEDS: TOPIRAMATE 100 MG TAB PO SCH ×2 (10:13→20:59)
[2019-11-13] MEDS: CHOLECALCIFEROL 1,000 UNITS 25 MCG TAB PO SCH (10:13)
[2019-11-13] MEDS: LACTULOSE SYRUP 30 GM/45 ML UDP PO SCH ×2 (10:14→20:56)
[2019-11-13] MEDS: SPIRONOLACTONE 25 MG TAB PO SCH (10:14)
[2019-11-13] MEDS: MULTIVITAMIN TAB PO SCH (10:14)
[2019-11-13] MEDS: DOCUSATE SODIUM 100 MG CAP PO SCH ×2 (10:16→20:58)
[2019-11-13] MEDS: MAGNESIUM CHLORIDE 64MG DELAYED REL TAB PO SCH (10:16)
[2019-11-13] MEDS: LORATADINE 10 MG TAB PO SCH (10:16)
[2019-11-13] MEDS: RIFAXIMIN 550 MG TABLET PO SCH ×2 (10:17→20:59)
[2019-11-13] MEDS: ZINC SULFATE 220 MG CAPSULE PO SCH (10:17)
[2019-11-13] MEDS: ENOXAPARIN INJ 40 MG/0.4 ML SYR SQ SCH (10:18)
[2019-11-13] MEDS: PANTOprazole 40 MG TAB PO SCH (10:18)
[2019-11-13] MEDS: levETIRAcetam 500 MG TAB PO SCH ×2 (10:19→20:58)
[2019-11-13] MEDS: ESCITALOPRAM OXALATE 10 MG TAB PO SCH (10:19)
--- NOTE | 2019-11-13 14:49 | Hospitalist Progress Note ---
Date of Service November 13, 2019 Assessment & Plan (1) Hepatic encephalopathy: Patient had an episode of hepatic encephalopathy in the evening of 11/10/2019. Acute hepatic encephalopathy causing AMS and unresponsiveness treated with lactulose and head CT. She had the decreased responsiveness and her ammonia was checked and found to be elevated from her baseline of the 70-80 range. Patient had persistent bowel movements and did have her lactulose increased. she remains in her normal self her encephalopathy is resolved her lactulose is restarted (2) Case management patient: Continue waiting on case management to continue to pursue the target p rocess for placement for rehab and to a halfway facility for her spiral femur fracture status post surgical repair which will likely take greater than 30 days for rehab as she is 6 weeks nonweightbearing. (3) Closed fracture of right distal femur: Periprosthetic fracture around previous IM nail in right femur, as a result of mechanical fall at home. Right hip x-rays on 11/01 show: "Acute, distracted, and angulated spiral fracture of the distal femoral shaft around the inferior end of the intramedullary nail." - S/p right ORIF with Dr. Thrasher on 11/04/2019. Dressing changed on 11/06 and ortho feel surgical site looking good. - Non-weightbearing right leg x 6-8 weeks. Ortho will get Q2week x-rays to monitor bone bridging to make final determination. - Pain control - Expected acute blood loss anemia in setting of femoral fracture; received a total of 4 units of PRBCs rogelio-operatively. Hgb is stable in the 8.99 g range, drain removed by orthopedics. - PT/OT/CM for placement. Target process required. Psychological evaluation performed 11/08/2019 (4) Liver cirrhosis secondary to STEVE: Patient with liver cirrhosis secondary to STEVE, portal hypertension. Patient follows with gastroenterology, last seen by Dr. Toledo on 04/20/19. HCV screening has been completed and is negative. AFP on 03/09/2019 = 2.6. INR = 1.4 - Continue lactulose & rifaximin she was given an additional dose of lactulose 11/13/19 - Continue zinc supplementation 50 mg daily - Continue Aldactone for lower extremity edema - Low sodium diet as tolerated - Avoid hepatotoxic agents (5) Seizure disorder: Patient with history of seizure. She follows with neurology, last seen on 04/02/19. EEG completed in May 2018 revealed a generalized spike and slow wave abnormality consistent with an underlying generalized seizure disorder. Patient had an MRI brain completed in October 2017 which was unremarkable. Patient failed VNS placement in the past, device was explanted. Presently on topiramate , Trileptal and Keppra. She was recently seen in the ER on 05/17/19 with report of seizures x 4 at home with a 5th seizure witnessed in triage - shaking her head and upper extremities. After consultation with Neurology, her oxcarbazepine was increased to 600mg po BID. - Continue topiramate 100 mg p.o. twice daily - Continue Trileptal 300 mg p.o. every morning and 600 mg p.o. nightly (this is different from above, but confirms this is current dosing) - Continue Keppra 1500 mg p.o. twice daily (6) Diabetes: Last hemoglobin A1c=4.6% on 10/20/19. Patient follows with Endocrinology/Diabetes education. - Continue Tresiba 10 units subcu every morning - Sliding scale insulin, was tightened by pt request (7) Severe persistent asthma: History of persistent asthma. She has seen Pulmonary as well as Allergy/Immunology in the past. Spirometry performed on 04/23/19 with FVC=1.37, 38% predicted. FEV1=1.18, 40% predicted and FEV1/FVC=86%. Suggestive of restrictive process vs obstruction with air trapping. Study limited. Formal PFTs ordered, not yet completed. -Patient is stable at this time - Adelaida PRN (8) Major depressive disorder with psychotic features: Chronic. Stable. Patient presently not on any medications. She was evaluated by inpatient psychiatry for targeting process (9) Blanca's thyroiditis: TSH = 1.56. - Continue Synthroid (10) GERD (gastroesophageal reflux disease): Chronic. Stable. - Continue PPI (11) Hx of migraines: Patient with episodic migraines. Well-controlled. - Continue topiramate no acute episodes - Patient has used Maxalt in the past with success for migraine relief if needed (12) DVT prophylaxis: Lovenox 40 mg SQ daily Admission and Anticipated Discharge Date Admission Date: November 02, 2019 Subjective Patient had hepatic encephalopathy episode on 11/09 she was continue to be encouraged to take her lactulose and today her ammonia is down and her mental status is much better. There is some concern of her continued to request a urinary catheter urinalysis has been ordered but not resulted and urinary catheter will be placed. There is also concerned that increasing stool production does soil her knee immobilizer which is splinting her distal femur spiral fracture however were doing her best to manage her pneumonia, encephalopathy, and splinting needs she is looking forward to subacute rehab to improve her function although she is a nonweightbearing on the affected limb for at least 6 weeks by orthopedic recommendations Review of Systems Review of Systems: Mild distress and fatigue encephalopathy from the evening of 11/09 has improved no headache, blurry or double vision no speech or swallowing issues no chest pain, pressure or palpitations no shortness of breath, cough or wheezes no abdominal pain, nausea or vomiting, diarrhea or constipation Complains of feeling urinary frequency requesting catheter Patient has right thigh and hip pain especially worse with movement she does have some peripheral swelling no back pain, CVA tenderness or radicular pain no bruising, bleeding or rashes no focal signs of weakness or numbness or altered sensation no complaints or anxiety or depression. 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 Head exam is normocephalic atraumatic no scleral icterus Neck is without JVD, thyromegaly, or carotid bruits. Lungs are clear to auscultation, no focal loss of breath sounds Cardiac exam, Rhythm is regular.. No murmurs, rubs or gallops. Abdominal exam reveals normal bowel sounds, soft non tender, no masses Extremities are mildly edematous right greater than left and both pedal pulses are normal. Neurologic exam is alert and oriented, she is of slow mentation but she is intact no focal loss of strength or sensation however the affected limb cannot be tested due to pain and splinting Psychologically is without concerns for acute depression Results & Data Results & Data ([facility]) Vital Signs (Past 12 Hours) Vital Signs Temp Pulse Resp BP Pulse Ox 11/13/19 07:04 98.1 F 81 17 114/72 96 11/13/19 06:23 80 18 PG Care Time/CCT Total # of Minutes Spent Total Time Spent with Patient: Total time spent is greater than 50% in coordination of care (as documented) at patient's floor/unit and/or counseling patient: Coding Level of Care Code 51700 Subseq Hosp Care Lvl 2 Diagnoses Hepatic encephalopathy K72.90 Case management patient Closed fracture of right distal femur S72.401A Liver cirrhosis secondary to STEVE K75.81; K74.60 Seizure disorder G40.909 Diabetes E11.69; Z79.4 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 complication status: with other specified complication 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 usp insulin use: with usp use 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 type: type 2 Severe persistent asthma J45.50 Asthma complication type: uncomplicated Major depressive disorder with psychotic features F32.3 Blanca's thyroiditis E06.3 GERD (gastroesophageal reflux disease) K21.9 Esophagitis presence: esophagitis presence not specified Hx of migraines Z86.69 DVT prophylaxis Z29.9 (1) Diabetes 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 complication status: with other specified complication 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 usp insulin use: with usp use 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 type: type 2 Qualified Code(s): E11.69 - Type 2 diabetes mellitus with other specified complication; 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
[2019-11-13] MEDS: SENNA 8.6 MG TAB PO SCH (20:58)
[2019-11-14] MEDS: OXYCODONE HCL IR 5 MG TAB (IMMEDIATE RELEASE) PO PRN ×3 (01:06→21:46)
[2019-11-14] MEDS: ALBUT/IPRATROP 3MG/0.5MG NEB 3 ML VIAL INH PRN (04:30)
[2019-11-14] MEDS: PROMETHAZINE HCL 25 MG TAB PO PRN (05:22)
[2019-11-14] MEDS: ACETAMINOPHEN 500 MG TAB PO SCH ×3 (06:02→21:46)
[2019-11-14] MEDS: LEVOTHYROXINE SODIUM 50 MCG TABLET PO SCH (06:03)
[2019-11-14] MEDS: SPIRONOLACTONE 25 MG TAB PO SCH (08:32)
[2019-11-14] MEDS: LACTULOSE SYRUP 30 GM/45 ML UDP PO SCH ×2 (08:33→21:37)
[2019-11-14] MEDS: levETIRAcetam 500 MG TAB PO SCH ×2 (08:33→21:38)
[2019-11-14] MEDS: LORATADINE 10 MG TAB PO SCH (08:33)
[2019-11-14] MEDS: ENOXAPARIN INJ 40 MG/0.4 ML SYR SQ SCH (08:34)
[2019-11-14] MEDS: PANTOprazole 40 MG TAB PO SCH (08:34)
[2019-11-14] MEDS: RIFAXIMIN 550 MG TABLET PO SCH ×2 (08:35→21:40)
[2019-11-14] MEDS: MULTIVITAMIN TAB PO SCH (08:35)
[2019-11-14] MEDS: TOPIRAMATE 100 MG TAB PO SCH ×2 (08:35→21:39)
[2019-11-14] MEDS: NITROFURANTOIN MONOHYDRATE 100 MG CAP PO SCH ×2 (08:36→21:38)
[2019-11-14] MEDS: ESCITALOPRAM OXALATE 10 MG TAB PO SCH (08:36)
[2019-11-14] MEDS: OXcarbazepine 150 MG TABLET PO SCH ×2 (08:37→21:39)
[2019-11-14] MEDS: MAGNESIUM OXIDE 400 MG TAB PO SCH ×2 (08:38→21:39)
[2019-11-14] MEDS: DOCUSATE SODIUM 100 MG CAP PO SCH ×2 (08:44→21:37)
[2019-11-14] MEDS: INSULIN DEGLUDEC 100 UNITS/ML SQ SCH (09:13)
[2019-11-14] MEDS: INSULIN ASPART 100 UNITS/ML 3 ML PEN SC SCH ×4 (09:14→21:42)
[2019-11-14] MEDS: CHOLECALCIFEROL 1,000 UNITS 25 MCG TAB PO SCH (11:27)
[2019-11-14] MEDS: MAGNESIUM CHLORIDE 64MG DELAYED REL TAB PO SCH (11:27)
[2019-11-14] MEDS: ZINC SULFATE 220 MG CAPSULE PO SCH (11:27)
[2019-11-14] MEDS: VITAMIN B COMPLEX TAB PO SCH (11:27)
[2019-11-14] MEDS: HEPARIN 100 UNIT/ML 5ML FLUSH FLUSH PRN ×3 (12:18→21:31)
[2019-11-14] MEDS: ONDANSETRON INJ 2 MG/ML 2 ML VIAL IV PRN (12:18)
--- NOTE | 2019-11-14 13:00 | Hospitalist Progress Note ---
Date of Service November 14, 2019 Assessment & Plan (1) Hepatic encephalopathy: Patient had an episode of hepatic encephalopathy in the evening of 11/10/2019. Acute hepatic encephalopathy causing AMS and unresponsiveness treated with lactulose and head CT. She had the decreased responsiveness and her ammonia was checked and found to be elevated from her baseline of the 70-80 range. Patient had persistent bowel movements and did have her lactulose increased. she remains in her normal self, her encephalopathy is resolved her lactulose is restarted (2) Case management patient: Continue waiting on case management to continue to pursue the target process for placement for rehab and to a assisted facility for her spiral femur fracture status post surgical repair which will likely take greater than 30 days for rehab as she is 6 weeks nonweightbearing. (3) Closed fracture of right distal femur: Periprosthetic fracture around previous IM nail in right femur, as a result of mechanical fall at home. Right hip x-rays on 11/01 show: "Acute, distracted, and angulated spiral fracture of the distal femoral shaft around the inferior end of the intramedullary nail." - S/p right ORIF with Dr. Thrasher on 11/04/2019. Dressing changed on 11/06 and ortho feel surgical site looking good. - Non-weightbearing right leg x 6-8 weeks. Ortho will get Q2week x-rays to monitor bone bridging to make final determination. - Pain control - Expected acute blood loss anemia in setting of femoral fracture; received a total of 4 units of PRBCs rogelio-operatively. Hgb is stable in the 8.99 g range, drain removed by orthopedics. - PT/OT/CM for placement. Target process required. Psychological evaluation performed 11/08/2019 (4) Liver cirrhosis secondary to STEVE: Patient with liver cirrhosis secondary to STEVE, portal hypertension. Patient follows with gastroenterology, last seen by Dr. Toledo on 04/20/19. HCV screening has been completed and is negative. AFP on 03/09/2019 = 2.6. INR = 1.4 - Continue lactulose & rifaximin she was given an additional dose of lactulose 11/13/19 - Continue zinc supplementation 50 mg daily - Continue Aldactone for lower extremity edema - Low sodium diet as tolerated - Avoid hepatotoxic agents (5) Seizure disorder: Patient with history of seizure. She follows with neurology, last seen on 04/02/19. EEG completed in May 2018 revealed a generalized spike and slow wave abnormality consistent with an underlying generalized seizure disorder. Patient had an MRI brain completed in October 2017 which was unremarkable. Patient failed VNS placement in the past, device was explanted. Presently on topirama te, Trileptal and Keppra. She was recently seen in the ER on 05/17/19 with report of seizures x 4 at home with a 5th seizure witnessed in triage - shaking her head and upper extremities. After consultation with Neurology, her oxcarbazepine was increased to 600mg po BID. - Continue topiramate 100 mg p.o. twice daily - Continue Trileptal 300 mg p.o. every morning and 600 mg p.o. nightly (this is different from above, but confirms this is current dosing) - Continue Keppra 1500 mg p.o. twice daily (6) Diabetes: Last hemoglobin A1c=4.6% on 10/20/19. Patient follows with Endocrinology/Diabetes education. - Continue Tresiba 10 units subcu every morning - Sliding scale insulin, was tightened by pt request (7) Severe persistent asthma: History of persistent asthma. She has seen Pulmonary as well as Allergy/Immunology in the past. Spirometry performed on 04/23/19 with FVC=1.37, 38% predicted. FEV1=1.18, 40% predicted and FEV1/FVC=86%. Suggestive of restrictive process vs obstruction with air trapping. Study limited. Formal PFTs ordered, not yet completed. -Patient is stable at this time - Adelaida PRN (8) Major depressive disorder with psychotic features: Chronic. Stable. Patient presently not on any medications. She was evaluated by inpatient psychiatry for targeting process (9) Blanca's thyroiditis: TSH = 1.56. - Continue Synthroid (10) GERD (gastroesophageal reflux disease): Chronic. Stable. - Continue PPI (11) Hx of migraines: Patient with episodic migraines. Well-controlled. - Continue topiramate no acute episodes - Patient has used Maxalt in the past with success for migraine relief if needed (12) DVT prophylaxis: Lovenox 40 mg SQ daily Admission and Anticipated Discharge Date Admission Date: November 02, 2019 Supervising Physician Co-Signing Physician Notes Patient seen and examined agree with above assessment plan. Post Operative Progress Note Patient seen laying in bed, comfortable at rest, c/o pain when awoken, no acute issues. RLE NVSI +EHL/FHL/TA/GS SILT grossly, +2 DP pulse, compartments soft NT, dressing cdi. drain intact s/p ORIF Right distal femur, BUBBA POD#2 -DVT ppx: SCDs, TEDs, Lovenox -NWB RLE -PT/OT -Maintain KI -Monitor drain output - will DC -am labs - H/H to 9.4/ 25.6 Subjective Previously the patient had hepatic encephalopathy episode on 11/09, this has resolved with increased lactulose use There is also concerned that increasing stool production does soil her knee immobilizer which is splinting her distal femur spiral fracture however were doing her best to manage her encephalopathy, stool production and splinting needs she is looking forward to subacute rehab to improve her function although she is a nonweightbearing on the affected limb for at least 6 weeks by orthopedic recommendations Review of Systems Review of Systems: Mild distress and fatigue encephalopathy from the evening of 11/09 has improved no headache, blurry or double vision no speech or swallowing issues no chest pain, pressure or palpitations no shortness of breath, cough or wheezes no abdominal pain, nausea or vomiting, diarrhea or constipation Complains of feeling urinary frequency requesting catheter Patient has right thigh and hip pain especially worse with movement she does have some peripheral swelling no back pain, CVA tenderness or radicular pain no bruising, bleeding or rashes no focal signs of weakness or numbness or altered sensation no complaints or anxiety or depression. Results & Data Results & Data ([facility]) Vital Signs (Past 12 Hours) Vital Signs Temp Pulse Pulse Resp BP Pulse Ox 11/14/19 07:04 97.9 F 83 16 95/62 L 96 11/14/19 04:30 78 16 96 PG Care Time/CCT Total # of Minutes Spent Total Time Spent with Patient: Total time spent is greater than 50% in coordination of care (as documented) at patient's floor/unit and/or counseling patient: Coding Level of Care Code 61493 Subseq Hosp Care Lvl 2 Diagnoses Hepatic encephalopathy K72.90 Case management patient Closed fracture of right distal femur S72.401A Liver cirrhosis secondary to STEVE K75.81; K74.60 Seizure disorder G40.909 Diabetes E11.69; Z79.4 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 complication status: with other specified complication 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 jail insulin use: with jail use 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 type: type 2 Severe persistent asthma J45.50 Asthma complication type: uncomplicated Major depressive disorder with psychotic features F32.3 Blanca's thyroiditis E06.3 GERD (gastroesophageal reflux disease) K21.9 Esophagitis presence: esophagitis presence not specified Hx of migraines Z86.69 DVT prophylaxis Z29.9 (1) Diabetes 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 complication status: with other specified complication 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
[2019-11-14] MEDS: METOCLOPRAMIDE HCL INJ 5 MG/ML 2 ML VIAL IV PRN ×2 (13:39→21:31)
[2019-11-14] MEDS: SENNA 8.6 MG TAB PO SCH (21:39)
[2019-11-15] MEDS: OXYCODONE HCL IR 5 MG TAB (IMMEDIATE RELEASE) PO PRN ×2 (01:06→05:08)
[2019-11-15] MEDS: HEPARIN 100 UNIT/ML 5ML FLUSH FLUSH PRN ×2 (01:07→03:37)
[2019-11-15] MEDS: ONDANSETRON INJ 2 MG/ML 2 ML VIAL IV PRN (01:07)
[2019-11-15] MEDS: METOCLOPRAMIDE HCL INJ 5 MG/ML 2 ML VIAL IV PRN (03:37)
[2019-11-15] MEDS: LEVOTHYROXINE SODIUM 50 MCG TABLET PO SCH (05:52)
[2019-11-15] MEDS: ACETAMINOPHEN 500 MG TAB PO SCH ×3 (05:52→21:04)
[2019-11-15] MEDS: ALBUT/IPRATROP 3MG/0.5MG NEB 3 ML VIAL INH PRN ×2 (06:01→09:48)
[2019-11-15] MEDS: INSULIN ASPART 100 UNITS/ML 3 ML PEN SC SCH ×4 (09:07→21:00)
[2019-11-15] MEDS: TOPIRAMATE 100 MG TAB PO SCH ×2 (09:12→20:14)
[2019-11-15] MEDS: NITROFURANTOIN MONOHYDRATE 100 MG CAP PO SCH ×2 (09:13→20:12)
[2019-11-15] MEDS: MAGNESIUM OXIDE 400 MG TAB PO SCH ×2 (09:13→20:14)
[2019-11-15] MEDS: ESCITALOPRAM OXALATE 10 MG TAB PO SCH (09:14)
[2019-11-15] MEDS: levETIRAcetam 500 MG TAB PO SCH ×2 (09:14→20:12)
[2019-11-15] MEDS: RIFAXIMIN 550 MG TABLET PO SCH ×2 (09:15→20:10)
[2019-11-15] MEDS: LORATADINE 10 MG TAB PO SCH (09:15)
[2019-11-15] MEDS: OXcarbazepine 150 MG TABLET PO SCH ×2 (09:17→20:14)
[2019-11-15] MEDS: SPIRONOLACTONE 25 MG TAB PO SCH (09:17)
[2019-11-15] MEDS: INSULIN DEGLUDEC 100 UNITS/ML SQ SCH (09:18)
[2019-11-15] MEDS: ENOXAPARIN INJ 40 MG/0.4 ML SYR SQ SCH (09:19)
[2019-11-15] MEDS: PANTOprazole 40 MG TAB PO SCH (09:19)
[2019-11-15] MEDS: LACTULOSE SYRUP 30 GM/45 ML UDP PO SCH ×2 (09:20→20:12)
[2019-11-15] MEDS: DOCUSATE SODIUM 100 MG CAP PO SCH ×2 (09:22→20:13)
[2019-11-15] MEDS: ZINC SULFATE 220 MG CAPSULE PO SCH (12:57)
[2019-11-15] MEDS: CHOLECALCIFEROL 1,000 UNITS 25 MCG TAB PO SCH (12:57)
[2019-11-15] MEDS: MAGNESIUM CHLORIDE 64MG DELAYED REL TAB PO SCH (12:58)
[2019-11-15] MEDS: MULTIVITAMIN TAB PO SCH (12:58)
[2019-11-15] MEDS: VITAMIN B COMPLEX TAB PO SCH (12:59)
--- NOTE | 2019-11-15 15:26 | Hospitalist Progress Note ---
Date of Service November 15, 2019 Assessment & Plan (1) Hepatic encephalopathy: Patient had an episode of hepatic encephalopathy in the evening of 11/10/2019. Acute hepatic encephalopathy causing AMS and unresponsiveness treated with lactulose and head CT. She had the decreased responsiveness and her ammonia was checked and found to be elevated from her baseline of the 70-80 range. Patient had persistent bowel movements and did have her lactulose increased. she remains in her normal self, her encephalopathy is resolved her lactulose is restarted Laboratory testing including ammonia will be done on 11/15 (2) Case management patient: Continue waiting on case management to continue to pursue the target process for placement for rehab and to a longterm facility for her spiral femur fracture status post surgical repair which will likely take greater than 30 days for rehab as she is 6 weeks nonweightbearing. (3) Closed fracture of right distal femur: Periprosthetic fracture around previous IM nail in right femur, as a result of mechanical fall at home. Right hip x-rays on 11/01 show: "Acute, distracted, and angulated spiral fracture of the distal femoral shaft around the inferior end of the intramedullary nail." - S/p right ORIF with Dr. Thrasher on 11/04/2019. Dressing changed on 11/06 and ortho feel surgical site looking good. - Non-weightbearing right leg x 6-8 weeks. Ortho will get Q2week x-rays to monitor bone bridging to make final determination. - Pain control - Expected acute blood loss anemia in setting of femoral fracture; received a total of 4 units of PRBCs rogelio-operatively. Hgb is stable in the 8.99 g range, drain removed by orthopedics. - PT/OT/CM for placement. Target process required. Psychological evaluation performed 11/08/2019 (4) Liver cirrhosis secondary to STEVE: Patient with liver cirrhosis secondary to STEVE, portal hypertension. Patient follows with gastroenterology, last seen by Dr. Toledo on 04/20/19. HCV screening has been completed and is negative. AFP on 03/09/2019 = 2.6. INR = 1.4 - Continue lactulose & rifaximin she was given an additional dose of lactulose 11/13/19 - Continue zinc supplementation 50 mg daily - Continue Aldactone for lower extremity edema - Low sodium diet as tolerated - Avoid hepatotoxic agents (5) Seizure disorder: Patient with history of seizure. She follows with neurology, last seen on 04/02/19. EEG completed in May 2018 revealed a generalized spike and slow wave abnormality consistent with an underlying generalized seizure disorder. Patient had an MRI brain completed in October 2017 which was unremarkable. Patient failed VNS placement in the past, device was explanted. Presently on topiramate, Trileptal and Keppra. She was recently seen in the ER on 05/17/19 with report of seizures x 4 at home with a 5th seizure witnessed in triage - shaking her head and upper extremities. After consultation with Neurology, her oxcarbazepine was increased to 600mg po BID. - Continue topiramate 100 mg p.o. twice daily - Continue Trileptal 300 mg p.o. every morning and 600 mg p.o. nightly (this is different from above, but confirms this is current dosing) - Continue Keppra 1500 mg p.o. twice daily (6) Diabetes: Last hemoglobin A1c=4.6% on 10/20/19. Patient follows with Endocrinology/Diabetes education. - Continue Tresiba 10 units subcu every morning - Sliding scale insulin, was tightened by pt request (7) Severe persistent asthma: History of persistent asthma. She has seen Pulmonary as well as Allergy/Immunology in the past. Spirometry performed on 04/23/19 with FVC=1.37, 38% predicted. FEV1=1.18, 40% predicted and FEV1/FVC=86%. Suggestive of restrictive process vs obstruction with air trapping. Study limited. Formal PFTs ordered, not yet completed. -Patient is stable at this time - DuoNebs PRN (8) Major depressive disorder with psychotic features: Chronic. Stable. Patient presently not on any medications. She was evaluated by inpatient psychiatry for targeting process (9) Blanca's thyroiditis: TSH = 1.56. - Continue Synthroid (10) GERD (gastroesophageal reflux disease): Chronic. Stable. - Continue PPI (11) Hx of migraines: Patient with episodic migraines. Well-controlled. - Continue topiramate no acute episodes - Patient has used Maxalt in the past with success for migraine relief if needed (12) DVT prophylaxis: Lovenox 40 mg SQ daily Admission and Anticipated Discharge Date Admission Date: November 02, 2019 Subjective Previously the patient had hepatic encephalopathy episode on 11/09, this has resolved with increased lactulose use There is also concerned that increasing stool production does soil her knee immobilizer which is splinting her distal femur spiral fracture however were doing her best to manage her encephalopathy, stool production and splinting nee ds Patient had intermittent nausea and vomiting associate with her gastroparesis. To this and laboratories will be checked on 11/15 in anticipation of upcoming transfer to rehab facility. Patient continues to use intermittent antiemetics and promotility agents such as metoclopramide she is looking forward to subacute rehab to improve her function although she is a nonweightbearing on the affected limb for at least 6 weeks by orthopedic recommendations Review of Systems Review of Systems: Mild distress and fatigue encephalopathy from the evening of 11/09 has improved no headache, blurry or double vision no speech or swallowing issues no chest pain, pressure or palpitations no shortness of breath, cough or wheezes no abdominal pain, intermittent nausea or vomiting, persistent diarrhea Complains of feeling urinary frequency requesting catheter Patient has right thigh and hip pain especially worse with movement she does have some peripheral swelling no back pain, CVA tenderness or radicular pain no bruising, bleeding or rashes no focal signs of weakness or numbness or altered sensation no complaints or anxiety or depression. Physical Exam Physical Exam: The patient appeared chronically ill but near her usual state as I previously been around this [employer] while hospitalized Vital signs as documented. Head exam is normocephalic atraumatic no scleral icterus Neck is without JVD, thyromegaly, or carotid bruits. Lungs are clear to auscultation, no focal loss of breath sounds Cardiac exam, Rhythm is regular.. No murmurs, rubs or gallops. Abdominal exam reveals normal bowel sounds, soft non tender, no masses Extremities are mildly edematous right greater than left and both pedal pulses are normal. Neurologic exam is alert and oriented, she is of slow mentation but she is intact no focal loss of strength or sensation however the affected limb cannot be tested due to pain and splinting Psychologically is without concerns for acute depression Results & Data Results & Data ([facility]) Vital Signs (Past 12 Hours) Vital Signs Temp Pulse Pulse Resp BP BP Pulse Ox 11/15/19 15:03 98.4 F 83 16 109/63 97 11/15/19 09:48 62 22 96 11/15/19 08:10 98.1 F 90 20 129/74 97 11/15/19 06:01 77 18 95 PG Care Time/CCT Total # of Minutes Spent Total Time Spent with Patient: Total time spent is greater than 50% in coordination of care (as documented) at patient's floor/unit and/or counseling patient: Coding Level of Care Code 00840 Subseq Hosp Care Lvl 2 Diagnoses Hepatic encephalopathy K72.90 Case management patient Closed fracture of right distal femur S72.401A Liver cirrhosis secondary to STEVE K75.81; K74.60 Seizure disorder G40.909 Diabetes E11.69; Z79.4 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 complication status: with other specified complication 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 long term care pharmacist insulin use: with alf use 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 type: type 2 Severe persistent asthma J45.50 Asthma complication type: uncomplicated Major depressive disorder with psychotic features F32.3 Blanca's thyroiditis E06.3 GERD (gastroesophageal reflux disease) K21.9 Esophagitis presence: esophagitis presence not specified Hx of migraines Z86.69 DVT prophylaxis Z29.9 (1) Diabetes 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 complication status: with other specified complication 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 alf insulin use: with alf use 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 type: type 2 Qualified Code(s): E11.69 - Type 2 diabetes mellitus with other specified complication; Z79.4 - residential (current) use of insulin (2) Severe persistent asthma Asthma complication type: uncomplicated Qualified Code(s): J45.50 - Severe persistent asthma, uncomplicated (3) GERD (gastroesophageal reflux disease) Esophagitis presence: esophagitis presence not specified Qualified Code(s): K21.9 - Gastro-esophageal reflux disease without esophagitis
[2019-11-15] MEDS ORDERED: PROMETHAZINE HCL 12.5 MG in SODIUM CHLORIDE 0.9% 50 ML IV PRN (15:30)
[2019-11-15] MEDS: SENNA 8.6 MG TAB PO SCH (20:12)
[2019-11-16] MEDS: HEPARIN 100 UNIT/ML 5ML FLUSH FLUSH PRN (05:34)
[2019-11-16 05:44] LABS: Hematocrit (blood only) 27.7 % (37-47); Hemoglobin 9.5 g/dL (12.0-16.0); Mean Corpuscular Hemoglobin 34.4 pg (25-34); Mean Corpuscular Hgb Conc 34.3 g/dL (32-36); Mean Corpuscular Volume 100.4 fL (80-100); Mean Platelet Volume 9.1 fL (7.4-10.4); Platelet Count 151 K/uL (130-400); RDW Coefficient of Variation 18.6 % (11.5-14.5); Red Blood Count 2.76 M/uL (4.2-5.4); White Blood Count 3.28 K/uL (4.8-10.8)
[2019-11-16 06:07] LABS: Albumin Level 1.9 gm/dl (3.4-5.0); BUN Creatinine Ratio 16.8 (10-20); Bilirubin Direct 0.7 mg/dl (0-0.2); Calcium 6.8 mg/dl (8.5-10.1); Creatinine Clr Calc Pharmacy 178.9 ml/min; Est GFR (African American) 136.7; Potassium 4.1 mmol/L (3.5-5.1)
[2019-11-16 06:10] LABS: Bilirubin,Total 1.9 mg/dl (0.2-1); Total Protein 4.8 gm/dl (6.4-8.2)
[2019-11-16] MEDS: LEVOTHYROXINE SODIUM 50 MCG TABLET PO SCH (06:26)
[2019-11-16] MEDS: ACETAMINOPHEN 500 MG TAB PO SCH ×3 (06:26→21:42)
[2019-11-16] MEDS: TOPIRAMATE 100 MG TAB PO SCH ×2 (08:45→20:06)
[2019-11-16] MEDS: LORATADINE 10 MG TAB PO SCH (08:45)
[2019-11-16] MEDS: ENOXAPARIN INJ 40 MG/0.4 ML SYR SQ SCH (08:45)
[2019-11-16] MEDS: OXcarbazepine 150 MG TABLET PO SCH ×2 (08:45→20:05)
[2019-11-16] MEDS: MAGNESIUM OXIDE 400 MG TAB PO SCH ×2 (08:45→20:05)
[2019-11-16] MEDS: levETIRAcetam 500 MG TAB PO SCH ×2 (08:45→20:04)
[2019-11-16] MEDS: PANTOprazole 40 MG TAB PO SCH (08:45)
[2019-11-16] MEDS: RIFAXIMIN 550 MG TABLET PO SCH ×2 (08:45→20:06)
[2019-11-16] MEDS: LACTULOSE SYRUP 30 GM/45 ML UDP PO SCH ×2 (08:46→20:03)
[2019-11-16] MEDS: INSULIN ASPART 100 UNITS/ML 3 ML PEN SC SCH ×4 (09:56→21:40)
[2019-11-16] MEDS: INSULIN DEGLUDEC 100 UNITS/ML SQ SCH (09:57)
[2019-11-16] MEDS: SPIRONOLACTONE 25 MG TAB PO SCH (09:58)
[2019-11-16] MEDS: ESCITALOPRAM OXALATE 10 MG TAB PO SCH (09:58)
[2019-11-16] MEDS: DOCUSATE SODIUM 100 MG CAP PO SCH ×2 (09:58→20:03)
[2019-11-16] MEDS: VITAMIN B COMPLEX TAB PO SCH (12:36)
[2019-11-16] MEDS: CHOLECALCIFEROL 1,000 UNITS 25 MCG TAB PO SCH (12:36)
[2019-11-16] MEDS: ZINC SULFATE 220 MG CAPSULE PO SCH (12:36)
[2019-11-16] MEDS: MAGNESIUM CHLORIDE 64MG DELAYED REL TAB PO SCH (12:37)
[2019-11-16] MEDS: MULTIVITAMIN TAB PO SCH (12:37)
[2019-11-16] MEDS: OXYCODONE HCL IR 5 MG TAB (IMMEDIATE RELEASE) PO PRN ×2 (17:13→21:44)
--- NOTE | 2019-11-16 17:19 | Hospitalist Progress Note ---
Date of Service November 16, 2019 Assessment & Plan (1) Hepatic encephalopathy: Patient had an episode of hepatic encephalopathy in the evening of 11/10/2019. Acute hepatic encephalopathy causing AMS and unresponsiveness treated with lactulose and head CT. She had the decreased responsiveness and her ammonia was checked and found to be elevated from her baseline of the 70-80 range. Patient had persistent bowel movements and did have her lactulose increased. she remains in her normal self, her encephalopathy is resolved her lactulose is restarted ammonia 87 today, which is in her baseline range tolerating Lactulose BID, several loose stools today continue Rifaximin had a decreased responsiveness episode today, but this happens all the time according to her (2) Case management patient: Continue waiting on case management to continue to pursue the target process for placement for rehab and to a custodial facility for her spiral femur fracture status post surgical repair which will likely take greater than 30 days for rehab as she is 6 weeks nonweightbearing. still awaiting paper work to be completed (3) Closed fracture of right distal femur: Periprosthetic fracture around previous IM nail in right femur, as a result of mechanical fall at home. Right hip x-rays on 11/01 show: "Acute, distracted, and angulated spiral fracture of the distal femoral shaft around the inferior end of the intramedullary nail." - S/p right ORIF with Dr. Thrasher on 11/04/2019. Dressing changed on 11/06 and ortho feel surgical site looking good. - Non-weightbearing right leg x 6-8 weeks. Ortho will get Q2week x-rays to monitor bone bridging to make final determination. - Pain control - Expected acute blood loss anemia in setting of femoral fracture; received a total of 4 units of PRBCs rogelio-operatively. Hgb is stable at 9.5, drain removed by orthopedics. - PT/OT/CM for placement. Target process required. Psychological evaluation performed 11/08/2019 (4) Liver cirrhosis secondary to STEVE: Patient with liver cirrhosis secondary to STEVE, portal hypertension. Patient follows with gastroenterology, last seen by Dr. Toledo on 04/20/19. HCV screening has been completed and is negative. AFP on 03/09/2019 = 2.6. INR = 1.4 - Continue lactulose & rifaximin - Continue zinc supplementation 50 mg daily - Continue Aldactone for lower extremity edema - Low sodium diet as tolerated - Avoid hepatotoxic agents (5) Seizure disorder: Patient with history of seizure. She follows with neurology, last seen on 04/02/19. EEG completed in May 2018 revealed a generalized spike and slow wave abnormality consistent with an underlying generalized seizure disorder. Patient had an MRI brain completed in October 2017 which was unremarkable. Patient failed VNS placement in the past, device was explanted. Presently on topiram ate, Trileptal and Keppra. She was recently seen in the ER on 05/17/19 with report of seizures x 4 at home with a 5th seizure witnessed in triage - shaking her head and upper extremities. After consultation with Neurology, her oxcarbazepine was increased to 600mg po BID. - Continue topiramate 100 mg p.o. twice daily - Continue Trileptal 300 mg p.o. every morning and 600 mg p.o. nightly (this is different from above, but confirms this is current dosing) - Continue Keppra 1500 mg p.o. twice daily no episodes (6) Diabetes: Last hemoglobin A1c=4.6% on 10/20/19. Patient follows with Endocrinology/Diabetes education. - Continue Tresiba 10 units subcu every morning - Sliding scale insulin, was tightened by pt request (7) Severe persistent asthma: History of persistent asthma. She has seen Pulmonary as well as Allergy/Immunology in the past. Spirometry performed on 04/23/19 with FVC=1.37, 38% predicted. FEV1=1.18, 40% predicted and FEV1/FVC=86%. Suggestive of restrictive process vs obstruction with air trapping. Study limited. Formal PFTs ordered, not yet completed. -Patient is stable at this time - DuoNebs PRN (8) Major depressive disorder with psychotic features: Chronic. Stable. Patient presently not on any medications. She was evaluated by inpatient psychiatry for targeting process (9) Blanca's thyroiditis: TSH = 1.56. - Continue Synthroid (10) GERD (gastroesophageal reflux disease): Chronic. Stable. - Continue PPI (11) Hx of migraines: Patient with episodic migraines. Well-controlled. - Continue topiramate no acute episodes - Patient has used Maxalt in the past with success for migraine relief if needed (12) DVT prophylaxis: Lovenox 40 mg SQ daily Admission and Anticipated Discharge Date Admission Date: November 02, 2019 Subjective patient eating well, pain is controlled reviewed labs, ammonia elevated at 87 but this is actually good for the patient patient ate some lunch and then had an unresponsive spell, glucose was okay discussed with her , she has these episodes at home frequently, was having some weakness prior to the fall that caused her fracture 30 minutes later she was awake and talking again, had a large BM d/w CM, still awaiting target process to be complete Review of Systems Review of Systems: All systems reviewed & are unremarkable except as noted in Subjective Constitutional: + fatigue and + daytime sleepiness; no fever Musculoskeletal: + joint pain Neurologic: + confusion Physical Exam Constitutional: WD/WN, vitals as above Eyes: PERRL, conjunctivae normal, anicteric sclerae ENMT: external ear and nose normal, oropharynx normal Neck: trachea midline, no thyromegaly Respiratory: normal respiratory effort, lungs clear to auscultation Cardiovascular: RRR, no murmur, no edema Gastrointestinal (Abdomen): normal bowel sounds, soft, nontender, no h epatosplenomegaly Musculoskeletal: no cyanosis or clubbing, extremities motor strength 5/5 Skin: no rashes, warm and dry Neurologic: patellar DTR's 2+ bilat, sensation intact and PERRL, EOMI, accommodation nl, no face palsy, no dysarthria Psychiatric: Orientation: oriented to person, oriented to place and oriented to time; + not alert (sleepy) Lymphatic: no cervical or axillary lymphadenopathy Results & Data Results & Data ([facility]) Vital Signs (Past 12 Hours) Vital Signs Temp Pulse Pulse Resp BP Pulse Ox 11/16/19 16:00 37.1 C 80 18 109/69 98 11/16/19 07:43 36.6 C 72 16 123/76 97 Laboratory Results Laboratory Results - last 24 hr 11/15/19 11/15/19 11/16/19 17:22 20:53 05:32 WBC 3.28 L RBC 2.76 L Hgb 9.5 L Hct 27.7 L MCV 100.4 H MCH 34.4 H MCHC 34.3 RDW Std Deviation 68.0 H RDW Coeff of Irina 18.6 H Plt Count 151 MPV 9.1 Sodium Potassium Chloride Carbon Dioxide Anion Gap BUN Creatinine Est Cr Clr Drug Dosing Est GFR ( Amer) Est GFR (Non-Af Amer) BUN/Creatinine Ratio Glucose POC Glucose 164 H 139 H Calcium Total Bilirubin Direct Bilirubin AST ALT Alkaline Phosphatase Ammonia Total Protein Albumin 11/16/19 11/16/19 11/16/19 05:32 05:32 08:23 WBC RBC Hgb Hct MCV MCH MCHC RDW Std Deviation RDW Coeff of Irina Plt Count MPV Sodium 134 L Potassium 4.1 Chloride 105 Carbon Dioxide 24 Anion Gap 5.0 BUN 7 Creatinine 0.41 L Est Cr Clr Drug Dosing 178.9 Est GFR ( Amer) 136.7 Est GFR (Non-Af Amer) 118.0 BUN/Creatinine Ratio 16.8 Glucose 83 POC Glucose 103 H Calcium 6.8 L Total Bilirubin 1.9 H Direct Bilirubin 0.7 H AST 43 H ALT 40 Alkaline Phosphatase 189 H Ammonia 87.0 H Total Protein 4.8 L Albumin 1.9 L 11/16/19 11:59 WBC RBC Hgb Hct MCV MCH MCHC RDW Std Deviation RDW Coeff of Irina Plt Count MPV Sodium Potassium Chloride Carbon Dioxide Anion Gap BUN Creatinine Est Cr Clr Drug Dosing Est GFR ( Amer) Est GFR (Non-Af Amer) BUN/Creatinine Ratio Glucose POC Glucose 148 H Calcium Total Bilirubin Direct Bilirubin AST ALT Alkaline Phosphatase Ammonia Total Protein Albumin Medications Administered Current Inpatient Medications Acetaminophen (Tylenol) 1,000 mg PO Q8H PRN PRN Reason: pain/fever Stop: 12/01/19 01:51 Last Admin: 11/04/19 08:25 Dose: 1,000 mg Documented by: Acetaminophen (Acetaminophen 500 Mg Tab) 1,000 mg PO Q8 SHEBA Stop: 12/04/19 21:59 Last Admin: 11/16/19 16:36 Dose: 1,000 mg Documented by: Albuterol (Duoneb) 3 ml INH QID PRN PRN Reason: wheezing Stop: 12/01/19 01:51 Last Admin: 11/15/19 09:48 Dose: 3 ml Documented by: Artificial Tears (Artificial Tears) 2 drops OP TID PRN PRN Reason: dry eyes Stop: 12/01/19 02:17 Bisacodyl (Dulcolax) 10 mg MT DAILY PRN PRN Reason: Constipation Stop: 12/04/19 20:54 Lactulose 200 gm/ Sterile Water 700 ml/ BARCODE IDENTIFIER 1 ea 0 gm MT Q8H PRN PRN Reason: refusal of po lactulose Stop: 12/10/19 18:14 Dextrose (Dextrose 50%) 25 - 50 ml IV UD PRN; Protocol PRN Reason: Hypoglycemia Protocol Stop: 12/01/19 01:51 Diphenhydramine HCl (Benadryl Capsule) 25 mg PO HS PRN PRN Reason: Sleep Stop: 12/02/19 20:59 Diphenhydramine HCl (Benadryl Capsule) 25 mg PO Q8H PRN PRN Reason: Itching Stop: 12/04/19 20:54 Last Admin: 11/13/19 03:12 Dose: 25 mg Documented by: Docusate Sodium (Docusate Sodium 100 Mg Cap) 100 mg PO BID SHEBA Stop: 12/04/19 20:59 Last Admin: 11/16/19 09:58 Dose: 100 mg Documented by: Enoxaparin Sodium (Lovenox) 40 mg SQ QAM SHEBA Stop: 12/05/19 08:59 Last Admin: 11/16/19 08:45 Dose: 40 mg Documented by: Escitalopram Oxalate (Lexapro Tab) 5 mg PO QAM SHEBA Stop: 12/08/19 15:59 Last Admin: 11/16/19 09:58 Dose: 5 mg Documented by: Glucagon (Glucagen) 1 mg SQ UD PRN; Protocol PRN Reason: Hypoglycemia Protocol Stop: 12/01/19 01:51 Glucose (Dex4 Glucose) 4 - 8 tabs PO UD PRN; Protocol PRN Reason: Hypoglycemia Protocol Stop: 12/01/19 01:51 Glucose (Glucose 40%) 15 - 30 gm PO UD PRN; Protocol PRN Reason: Hypoglycemia Protocol Stop: 12/01/19 01:51 Heparin Sodium (Porcine) (Heparin Sod 100 Unit/Ml Flush) 5 ml FLUSH PRN PRN PRN Reason: Flush Stop: 12/01/19 06:50 Last Admin: 11/16/19 05:34 Dose: 5 ml Documented by: Lorazepam (Ativan) 0.5 mg in 1 mls @ 1 mls/min IV Q6H PRN PRN Reason: Agitation Stop: 12/10/19 14:59 Promethazine HCl 12.5 mg/ (Sodium Chloride) 50.5 mls @ 202 mls/hr IV Q6H PRN PRN Reason: Nausea And Vomiting Stop: 12/15/19 15:29 Insulin Aspart (Insulin Aspart 100 Units/Ml 3 Ml Pen) 0 units SC ACHS [facility] Stop: 12/01/19 02:29 Last Admin: 11/16/19 13:19 Dose: 3 units Documented by: Insulin Degludec (Tresiba Flextouch U-100) 10 units SQ QAM [facility] Stop: 12/09/19 08:59 Last Admin: 11/16/19 09:57 Dose: 10 units Documented by: Lactulose (Lactulose Syrup 30 Gm/45 Ml Udp) 30 gm PO BID [facility] Stop: 12/12/19 10:29 Last Admin: 11/16/19 08:46 Dose: 30 gm Documented by: Levetiracetam (Keppra) 1,500 mg PO BID [facility] Stop: 12/01/19 08:59 Last Admin: 11/16/19 08:45 Dose: 1,500 mg Documented by: Levothyroxine Sodium (Synthroid) 50 mcg PO DAILYBB [facility] Stop: 12/01/19 06:29 Last Admin: 11/16/19 06:26 Dose: 50 mcg Documented by: Loratadine (Claritin) 10 mg PO QAM [facility] Stop: 12/01/19 08:59 Last Admin: 11/16/19 08:45 Dose: 10 mg Documented by: Magnesium Chloride (Slow-Mag) 128 mg PO QDL [facility] Stop: 12/01/19 11:29 Last Admin: 11/16/19 12:37 Dose: 128 mg Documented by: Magnesium Hydroxide (Milk Of Magnesia) 30 ml PO Q6H PRN PRN Reason: Constipation Stop: 12/04/19 20:54 Last Admin: 11/07/19 17:38 Dose: 30 ml Documented by: Magnesium Oxide (Mag-Ox) 400 mg PO BID [facility] Stop: 12/08/19 08:59 Last Admin: 11/16/19 08:45 Dose: 400 mg Documented by: Melatonin (Melatonin) 15 mg PO HSZ PRN PRN Reason: Sleep Stop: 12/01/19 02:09 Metoclopramide HCl (Reglan) 10 mg IV Q6H PRN PRN Reason: Nausea And Vomiting Stop: 12/04/19 20:54 Last Admin: 11/15/19 03:37 Dose: 10 mg Documented by: Miscellaneous (Carbohydrates For Hypoglycemia) 15 - 30 gm PO UD PRN PRN Reason: Hypoglycemia Protocol Stop: 12/01/19 01:51 Multivitamins (Multivitamin Tab) 1 tab PO QDL [facility] Stop: 12/01/19 11:29 Last Admin: 11/16/19 12:37 Dose: 1 tab Documented by: Naloxone HCl (Narcan) 0.1 mg IV Q5M PRN PRN Reason: Oversedation/Resp Depression Stop: 12/04/19 20:54 Ondansetron HCl (Zofran) 4 mg IV Q6H PRN PRN Reason: Nausea Stop: 12/01/19 01:51 Last Admin: 11/15/19 01:07 Dose: 4 mg Documented by: Ondansetron HCl (Zofran) 4 mg IV Q6H PRN PRN Reason: Nausea And Vomiting Stop: 12/04/19 20:54 [facility] ([facility]al) [facility]: 12/01/19 08:59 Last Admin: 11/16/19 08:45 Dose: 300 mg Documented by: Oxcarbazepine (Trileptal) 600 mg PO [facility] Stop: 12/01/19 20:59 Last Admin: 11/15/19 20:14 Dose: 600 mg Documented by: Oxycodone HCl (Oxycodone Hcl Ir 5 Mg Tab (Immediate Release)) 5 - 10 mg PO Q4H PRN PRN Reason: Pain or Pre PT Stop: 11/18/19 20:54 Last Admin: 11/16/19 17:13 Dose: 10 mg Documented by: Pantoprazole Sodium (Protonix) 40 mg PO QAM [facility] Stop: 12/01/19 08:59 Last Admin: 11/16/19 08:45 Dose: 40 mg Documented by: Promethazine HCl (Phenergan) 25 mg PO Q6H PRN PRN Reason: sedation Stop: 12/01/19 01:51 Last Admin: 11/14/19 05:22 Dose: 25 mg Documented by: Rifaximin (Xifaxan) 550 mg PO BID [facility] Stop: 12/01/19 08:59 Last Admin: 11/16/19 08:45 Dose: 550 mg Documented by: Sennosides (Senokot) 17.2 mg PO [facility] Stop: 12/04/19 20:59 Last Admin: 11/15/19 20:12 Dose: 17.2 mg Documented by: Sodium Chloride ([place] Nasal) 1 sprays NA BID PRN PRN Reason: dry nasal passages Stop: 12/01/19 01:51 Spironolactone (Aldactone) 50 mg PO QAM [facility] Stop: 12/01/19 08:59 Last Admin: 11/16/19 09:58 Dose: 50 mg Documented by: Topiramate (Topamax) 100 mg PO BID [facility] Stop: 12/01/19 08:59 Last Admin: 11/16/19 08:45 Dose: 100 mg Documented by: Vitamin B Complex (Vitamin B Complex) 1 tab PO QDL [facility] Stop: 12/01/19 11:29 Last Admin: 11/16/19 12:36 Dose: 1 tab Documented by: Vitamin D (Vitamin D3) 1,000 units PO QDL [facility] Stop: 12/01/19 11:29 Last Admin: 11/16/19 12:36 Dose: 1,000 units Documented by: Zinc Sulfate (Zinc Sulfate) 220 mg PO QDL [facility] Stop: 12/01/19 11:29 Last Admin: 11/16/19 12:36 Dose: 220 mg Documented by: PG Care Time/CCT Total # of Minutes Spent Total Time Spent with Patient: Total time spent is greater than 50% in coordination of care (as documented) at patient's floor/unit and/or counseling patient: Coding Level of Care Code 38247 Subseq Hosp Care Lvl 2 Diagnoses Hepatic encephalopathy K72.90 Case management patient Closed fracture of right distal femur S72.401A Liver cirrhosis secondary to STEVE K75.81; K74.60 Seizure disorder G40.909 Diabetes E11.69; Z79.4 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 complication status: with other specified complication 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 terminal press operator insulin use: with terminal press operator use 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 type: type 2 Severe persistent asthma J45.50 Asthma complication type: uncomplicated Major depressive disorder with psychotic features F32.3 Blanca's thyroiditis E06.3 GERD (gastroesophageal reflux disease) K21.9 Esophagitis presence: esophagitis presence not specified Hx of migraines Z86.69 DVT prophylaxis Z29.9 (1) Diabetes 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 complication status: with other specified complication 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 terminal press operator insulin use: with alf use 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 type: type 2 Qualified Code(s): E11.69 - Type 2 diabetes mellitus with other specified complication; Z79.4 - superintendent container terminal (current) use of insulin (2) Severe persistent asthma Asthma complication type: uncomplicated Qualified Code(s): J45.50 - Severe persistent asthma, uncomplicated (3) GERD (gastroesophageal reflux disease) Esophagitis presence: esophagitis presence not specified Qualified Code(s): K21.9 - Gastro-esophageal reflux disease without esophagitis
[2019-11-16] MEDS: SENNA 8.6 MG TAB PO SCH (20:05)
[2019-11-17] MEDS: OXYCODONE HCL IR 5 MG TAB (IMMEDIATE RELEASE) PO PRN (03:25)
[2019-11-17] MEDS: LEVOTHYROXINE SODIUM 50 MCG TABLET PO SCH (06:21)
[2019-11-17] MEDS: ACETAMINOPHEN 500 MG TAB PO SCH ×3 (06:22→21:41)
[2019-11-17] MEDS: LACTULOSE SYRUP 30 GM/45 ML UDP PO SCH ×3 (09:13→21:48)
[2019-11-17] MEDS: LORATADINE 10 MG TAB PO SCH (09:13)
[2019-11-17] MEDS: DOCUSATE SODIUM 100 MG CAP PO SCH ×3 (09:14→21:49)
[2019-11-17] MEDS: levETIRAcetam 500 MG TAB PO SCH ×2 (09:14→21:56)
[2019-11-17] MEDS: ESCITALOPRAM OXALATE 10 MG TAB PO SCH (09:14)
[2019-11-17] MEDS: PANTOprazole 40 MG TAB PO SCH (09:15)
[2019-11-17] MEDS: ENOXAPARIN INJ 40 MG/0.4 ML SYR SQ SCH (09:15)
[2019-11-17] MEDS: MAGNESIUM OXIDE 400 MG TAB PO SCH ×3 (09:15→21:55)
[2019-11-17] MEDS: INSULIN DEGLUDEC 100 UNITS/ML SQ SCH (09:16)
[2019-11-17] MEDS: TOPIRAMATE 100 MG TAB PO SCH ×3 (09:16→21:54)
[2019-11-17] MEDS: RIFAXIMIN 550 MG TABLET PO SCH ×3 (09:17→21:54)
[2019-11-17] MEDS: OXcarbazepine 150 MG TABLET PO SCH ×3 (09:17→21:55)
[2019-11-17] MEDS: SPIRONOLACTONE 25 MG TAB PO SCH (09:18)
[2019-11-17] MEDS: INSULIN ASPART 100 UNITS/ML 3 ML PEN SC SCH ×4 (09:18→21:41)
[2019-11-17] MEDS: MULTIVITAMIN TAB PO SCH (12:15)
[2019-11-17] MEDS: VITAMIN B COMPLEX TAB PO SCH (12:15)
[2019-11-17] MEDS: CHOLECALCIFEROL 1,000 UNITS 25 MCG TAB PO SCH (12:15)
[2019-11-17] MEDS: ZINC SULFATE 220 MG CAPSULE PO SCH (12:15)
[2019-11-17] MEDS: MAGNESIUM CHLORIDE 64MG DELAYED REL TAB PO SCH (12:15)
--- NOTE | 2019-11-17 16:56 | Hospitalist Progress Note ---
Date of Service November 17, 2019 Assessment & Plan (1) Hepatic encephalopathy: Patient had an episode of hepatic encephalopathy in the evening of 11/10/2019. Acute hepatic encephalopathy causing AMS and unresponsiveness treated with lactulose and head CT. She had the decreased responsiveness and her ammonia was checked and found to be elevated from her baseline of the 70-80 range. Patient had persistent bowel movements and did have her lactulose increased. she remains in her normal self, her encephalopathy is resolved her lactulose is restarted ammonia 87 on 11/15, which is in her baseline range tolerating Lactulose BID, several loose stools today continue Rifaximin had a decreased responsiveness episode 11/15, but this happens all the time according to her more alert and conversive today plan to check ammonia tomorrow (2) Case management patient: Continue waiting on case management to continue to pursue the target process for placement for rehab and to a assisted facility for her spiral femur fracture status post surgical repair which will likely take greater than 30 days for rehab as she is 6 weeks nonweightbearing. still awaiting paper work to be completed (3) Closed fracture of right distal femur: Periprosthetic fracture around previous IM nail in right femur, as a result of mechanical fall at home. Right hip x-rays on 11/01 show: "Acute, distracted, and angulated spiral fracture of the distal femoral shaft around the inferior end of the intramedullary nail." - S/p right ORIF with Dr. Thrasher on 11/04/2019. Dressing changed on 11/06 and ortho feel surgical site looking good. - Non-weightbearing right leg x 6-8 weeks. Ortho will get Q2week x-rays to monitor bone bridging to make final determination. - Pain control - Expected acute blood loss anemia in setting of femoral fracture; received a total of 4 units of PRBCs rogelio-operatively. Hgb is stable at 9.5 on 11/15, drain removed by orthopedics. - PT/OT/CM for placement. Target process required. Psychological evaluation performed 11/08/2019 (4) Liver cirrhosis secondary to STEVE: Patient with liver cirrhosis secondary to STEVE, portal hypertension. Patient follows with gastroenterology, last seen by Dr. Toledo on 04/20/19. HCV screening has been completed and is negative. AFP on 03/09/2019 = 2.6. INR = 1.4 - Continue lactulose & rifaximin - Continue zinc supplementation 50 mg daily - Continue Aldactone for lower extremity edema - Low sodium diet as tolerated - Avoid hepatotoxic agents (5) Seizure disorder: Patient with history of seizure. She follows with neurology, last seen on 04/02/19. EEG completed in May 2018 revealed a generalized spike and slow wave abnormality consistent with an underlying generalized seizure disorder. Patient had an MRI brain completed in October 2017 which was unremarkable. Patient faile d VNS placement in the past, device was explanted. Presently on topiramate, Trileptal and Keppra. She was recently seen in the ER on 05/17/19 with report of seizures x 4 at home with a 5th seizure witnessed in triage - shaking her head and upper extremities. After consultation with Neurology, her oxcarbazepine was increased to 600mg po BID. - Continue topiramate 100 mg p.o. twice daily - Continue Trileptal 300 mg p.o. every morning and 600 mg p.o. nightly (this is different from above, but confirms this is current dosing) - Continue Keppra 1500 mg p.o. twice daily no episodes (6) Diabetes: Last hemoglobin A1c=4.6% on 10/20/19. Patient follows with Endocrinology/Diabetes education. - Continue Tresiba 10 units subcu every morning - Sliding scale insulin, was tightened by pt request (7) Severe persistent asthma: History of persistent asthma. She has seen Pulmonary as well as Allergy/Immunology in the past. Spirometry performed on 04/23/19 with FVC=1.37, 38% predicted. FEV1=1.18, 40% predicted and FEV1/FVC=86%. Suggestive of restrictive process vs obstruction with air trapping. Study limited. Formal PFTs ordered, not yet completed. -Patient is stable at this time - DuoNebs PRN (8) Major depressive disorder with psychotic features: Chronic. Stable. Patient presently not on any medications. She was evaluated by inpatient psychiatry for targeting process (9) Blanca's thyroiditis: TSH = 1.56. - Continue Synthroid (10) GERD (gastroesophageal reflux disease): Chronic. Stable. - Continue PPI (11) Hx of migraines: Patient with episodic migraines. Well-controlled. - Continue topiramate no acute episodes - Patient has used Maxalt in the past with success for migraine relief if needed (12) DVT prophylaxis: Lovenox 40 mg SQ daily Admission and Anticipated Discharge Date Admission Date: November 02, 2019 Subjective patient more alert today, eating well moving her bowels pain is well controlled updated her at the bedside, hoping that the target process will be completed soon Review of Systems Review of Systems: All systems reviewed & are unremarkable except as noted in Subjective Musculoskeletal: + joint pain Physical Exam Constitutional: WD/WN, vitals as above Eyes: PERRL, conjunctivae normal, anicteric sclerae ENMT: external ear and nose normal, oropharynx normal Neck: trachea midline, no thyromegaly Respiratory: normal respiratory effort, lungs clear to auscultation Cardiovascular: RRR, no murmur, no edema Gastrointestinal (Abdomen): normal bowel sounds, soft, nontender, no hepatosplenomegaly Musculoskeletal: Head/Neck/Chest: normocephalic, head atraumatic and neck supple Extremities: + abnormal strength (generalized weakness); no cyanosis, no clubbing and no petechiae Skin: no rashes, warm and dry Neurologic: patellar DTR's 2+ bilat, sensation intact and PERRL, EOMI, accommodation nl, no face palsy, no dysarthria Psychiatric: Orientation: oriented to person, oriented to place and oriented to time; + not alert (sleepy) Lymphatic: no cervical or axillary lymphadenopathy Results & Data Results & Data ([facility]) Vital Signs (Past 12 Hours) Vital Signs Temp Pulse Resp BP Pulse Ox 11/17/19 15:28 36.8 C 74 21 128/67 98 11/17/19 07:30 36.6 C 72 18 101/50 L 96 Laboratory Results Laboratory Results - last 24 hr 11/16/19 11/16/19 11/17/19 17:17 20:40 08:11 POC Glucose 131 H 176 H 94 11/17/19 12:15 POC Glucose 168 H Medications Administered Current Inpatient Medications Acetaminophen (Tylenol) 1,000 mg PO Q8H PRN PRN Reason: pain/fever Stop: 12/01/19 01:51 Last Admin: 11/04/19 08:25 Dose: 1,000 mg Documented by: Acetaminophen (Acetaminophen 500 Mg Tab) 1,000 mg PO Q8 SHEBA Stop: 12/04/19 21:59 Last Admin: 11/17/19 14:30 Dose: 1,000 mg Documented by: Albuterol (Duoneb) 3 ml INH QID PRN PRN Reason: wheezing Stop: 12/01/19 01:51 Last Admin: 11/15/19 09:48 Dose: 3 ml Documented by: Artificial Tears (Artificial Tears) 2 drops OP TID PRN PRN Reason: dry eyes Stop: 12/01/19 02:17 Bisacodyl (Dulcolax) 10 mg DE DAILY PRN PRN Reason: Constipation Stop: 12/04/19 20:54 Lactulose 200 gm/ Sterile Water 700 ml/ BARCODE IDENTIFIER 1 ea 0 gm DE Q8H PRN PRN Reason: refusal of po lactulose Stop: 12/10/19 18:14 Dextrose (Dextrose 50%) 25 - 50 ml IV UD PRN; Protocol PRN Reason: Hypoglycemia Protocol Stop: 12/01/19 01:51 Diphenhydramine HCl (Benadryl Capsule) 25 mg PO HS PRN PRN Reason: Sleep Stop: 12/02/19 20:59 Diphenhydramine HCl (Benadryl Capsule) 25 mg PO Q8H PRN PRN Reason: Itching Stop: 12/04/19 20:54 Last Admin: 11/13/19 03:12 Dose: 25 mg Documented by: Docusate Sodium (Docusate Sodium 100 Mg Cap) 100 mg PO BID [facility] Stop: 12/04/19 20:59 Last Admin: 11/17/19 09:14 Dose: 100 mg Documented by: Enoxaparin Sodium (Lovenox) 40 mg SQ QAM [facility] Stop: 12/05/19 08:59 Last Admin: 11/17/19 09:15 Dose: 40 mg Documented by: Escitalopram Oxalate (Lexapro Tab) 5 mg PO QAM SHEBA Stop: 12/08/19 15:59 Last Admin: 11/17/19 09:14 Dose: 5 mg Documented by: Glucagon (Glucagen) 1 mg SQ UD PRN; Protocol PRN Reason: Hypoglycemia Protocol Stop: 12/01/19 01:51 Glucose (Dex4 Glucose) 4 - 8 tabs PO UD PRN; Protocol PRN Reason: Hypoglycemia Protocol Stop: 12/01/19 01:51 Glucose (Glucose 40%) 15 - 30 gm PO UD PRN; Protocol PRN Reason: Hypoglycemia Protocol Stop: 12/01/19 01:51 Heparin Sodium (Porcine) (Heparin Sod 100 Unit/Ml Flush) 5 ml FLUSH PRN PRN PRN Reason: Flush Stop: 12/01/19 06:50 Last Admin: 11/16/19 05:34 Dose: 5 ml Documented by: Lorazepam (Ativan) 0.5 mg in 1 mls @ 1 mls/min IV Q6H PRN PRN Reason: Agitation Stop: 12/10/19 14:59 Promethazine HCl 12.5 mg/ (Sodium Chloride) 50.5 mls @ 202 mls/hr IV Q6H PRN PRN Reason: Nausea And Vomiting Stop: 12/15/19 15:29 Insulin Aspart (Insulin Aspart 100 Units/Ml 3 Ml Pen) 0 units SC ACHS [facility] Stop: 12/01/19 02:29 Last Admin: 11/17/19 12:46 Dose: 7 units Documented by: Insulin Degludec (Tresiba Flextouch U-100) 10 units SQ QAM [facility] Stop: 12/09/19 08:59 Last Admin: 11/17/19 09:16 Dose: 10 units Documented by: Lactulose (Lactulose Syrup 30 Gm/45 Ml Udp) 30 gm PO BID [facility] Stop: 12/12/19 10:29 Last Admin: 11/17/19 09:13 Dose: 30 gm Documented by: Levetiracetam (Keppra) 1,500 mg PO BID [facility] Stop: 12/01/19 08:59 Last Admin: 11/17/19 09:14 Dose: 1,500 mg Documented by: Levothyroxine Sodium (Synthroid) 50 mcg PO DAILYBB [facility] Stop: 12/01/19 06:29 Last Admin: 11/17/19 06:21 Dose: 50 mcg Documented by: Loratadine (Claritin) 10 mg PO QAM [facility] Stop: 12/01/19 08:59 Last Admin: 11/17/19 09:13 Dose: 10 mg Documented by: Magnesium Chloride (Slow-Mag) 128 mg PO QDL [facility] Stop: 12/01/19 11:29 Last Admin: 11/17/19 12:15 Dose: 128 mg Documented by: Magnesium Hydroxide (Milk Of Magnesia) 30 ml PO Q6H PRN PRN Reason: Constipation Stop: 12/04/19 20:54 Last Admin: 11/07/19 17:38 Dose: 30 ml Documented by: Magnesium Oxide (Mag-Ox) 400 mg PO BID [facility] Stop: 12/08/19 08:59 Last Admin: 11/17/19 09:15 Dose: 400 mg Documented by: Melatonin (Melatonin) 15 mg PO HSZ PRN PRN Reason: Sleep Stop: 12/01/19 02:09 Metoclopramide HCl (Reglan) 10 mg IV Q6H PRN PRN Reason: Nausea And Vomiting Stop: 12/04/19 20:54 Last Admin: 11/15/19 03:37 Dose: 10 mg Documented by: Miscellaneous (Carbohydrates For Hypoglycemia) 15 - 30 gm PO UD PRN PRN Reason: Hypoglycemia Protocol Stop: 12/01/19 01:51 Multivitamins (Multivitamin Tab) 1 tab PO QDL [facility] Stop: 12/01/19 11:29 Last Admin: 11/17/19 12:15 Dose: 1 tab Documented by: Naloxone HCl (Narcan) 0.1 mg IV Q5M PRN PRN Reason: Oversedation/Resp Depression Stop: 12/04/19 20:54 Ondansetron HCl (Zofran) 4 mg IV Q6H PRN PRN Reason: Nausea Stop: 12/01/19 01:51 Last Admin: 11/15/19 01:07 Dose: 4 mg Documented by: Ondansetron HCl (Zofran) 4 mg IV Q6H PRN PRN Reason: Nausea And Vomiting Stop: 12/04/19 20:54 Oxcarbazepine (Trileptal) 300 mg PO QAM [facility] Stop: 12/01/19 08:59 Last Admin: 11/17/19 09:17 Dose: 300 mg Documented by: Oxcarbazepine (Trileptal) 600 mg PO HS [facility] Stop: 12/01/19 20:59 Last Admin: 11/16/19 20:05 Dose: 600 mg Documented by: Oxycodone HCl (Oxycodone Hcl Ir 5 Mg Tab (Immediate Release)) 5 - 10 mg PO Q4H PRN PRN Reason: Pain or Pre PT Stop: 11/18/19 20:54 Last Admin: 11/17/19 03:25 Dose: 10 mg Documented by: Pantoprazole Sodium (Protonix) 40 mg PO QAM [facility] Stop: 12/01/19 08:59 Last Admin: 11/17/19 09:15 Dose: 40 mg Documented by: Promethazine HCl (Phenergan) 25 mg PO Q6H PRN PRN Reason: sedation Stop: 12/01/19 01:51 Last Admin: 11/14/19 05:22 Dose: 25 mg Documented by: Rifaximin (Xifaxan) 550 mg PO BID [facility] Stop: 12/01/19 08:59 Last Admin: 11/17/19 09:17 Dose: 550 mg Documented by: Sennosides (Senokot) 17.2 mg PO HS [facility] Stop: 12/04/19 20:59 Last Admin: 11/16/19 20:05 Dose: Not Given Documented by: Sodium Chloride ([place] Nasal) 1 sprays NA BID PRN PRN Reason: dry nasal passages Stop: 12/01/19 01:51 Spironolactone (Aldactone) 50 mg PO QAM [facility] Stop: 12/01/19 08:59 Last Admin: 11/17/19 09:18 Dose: 50 mg Documented by: Topiramate (Topamax) 100 mg PO BID [facility] Stop: 12/01/19 08:59 Last Admin: 11/17/19 09:16 Dose: 100 mg Documented by: Vitamin B Complex (Vitamin B Complex) 1 tab PO QDL [facility] Stop: 12/01/19 11:29 Last Admin: 11/17/19 12:15 Dose: 1 tab Documented by: Vitamin D (Vitamin D3) 1,000 units PO QDL [facility] Stop: 12/01/19 11:29 Last Admin: 11/17/19 12:15 Dose: 1,000 units Documented by: Zinc Sulfate (Zinc Sulfate) 220 mg PO QDL [facility] Stop: 12/01/19 11:29 Last Admin: 11/17/19 12:15 Dose: 220 mg Documented by: PG Care Time/CCT Total # of Minutes Spent Total Time Spent with Patient: Total time spent is greater than 50% in coordination of care (as documented) at patient's floor/unit and/or counseling patient: Coding Level of Care Code 37200 Subseq Hosp Care Lvl 2 Diagnoses Hepatic encephalopathy K72.90 Case management patient Closed fracture of right distal femur S72.401A Liver cirrhosis secondary to STEVE K75.81; K74.60 Seizure disorder G40.909 Diabetes E11.69; Z79.4 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 complication status: with other specified complication 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 mcfp insulin use: with mcfp use 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 type: type 2 Severe persistent asthma J45.50 Asthma complication type: uncomplicated Major depressive disorder with psychotic features F32.3 Blanca's thyroiditis E06.3 GERD (gastroesophageal reflux disease) K21.9 Esophagitis presence: esophagitis presence not specified Hx of migraines Z86.69 DVT prophylaxis Z29.9 (1) Diabetes 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 complication status: with other specified complication 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 mcfp insulin use: with mcfp use 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 type: type 2 Qualified Code(s): E11.69 - Type 2 diabetes mellitus with other specified complication; 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
[2019-11-17] MEDS: SENNA 8.6 MG TAB PO SCH ×2 (21:39→21:55)
[2019-11-18 05:52] LABS: Hematocrit (blood only) 28.6 % (37-47); Mean Corpuscular Hemoglobin 34.8 pg (25-34); Mean Corpuscular Volume 99.7 fL (80-100); Platelet Count 170 K/uL (130-400); RDW Coefficient of Variation 18.4 % (11.5-14.5); RDW Standard Deviation 67.1 fL (36.4-46.3); Red Blood Count 2.87 M/uL (4.2-5.4); White Blood Count 3.04 K/uL (4.8-10.8)
[2019-11-18] MEDS: ACETAMINOPHEN 500 MG TAB PO SCH ×3 (06:01→21:09)
[2019-11-18] MEDS: LEVOTHYROXINE SODIUM 50 MCG TABLET PO SCH (06:01)
[2019-11-18 06:19] LABS: Alanine Aminotransferase 36 U/L (12-78); Aspartate Aminotransferase 42 U/L (15-37); BUN Creatinine Ratio 17.6 (10-20); Blood Urea Nitrogen 5 mg/dl (7-18); Calcium 7.4 mg/dl (8.5-10.1); Carbon Dioxide 22 mmol/L (21-32); Chloride 105 mmol/L (98-107); Creatinine Clr Calc Pharmacy 261.9 ml/min; Est GFR (African American) > 150.0; Est GFR (Non-African American) 133.7; Glucose 83 mg/dl (70-99); Potassium 3.9 mmol/L (3.5-5.1); Sodium 133 mmol/L (136-145)
[2019-11-18 06:22] LABS: Albumin Globulin Ratio 0.6 (0.9-2); Alkaline Phosphatase 226 U/L (45-117); Bilirubin,Total 1.8 mg/dl (0.2-1); Globulin 3.1 gm/dl (2.5-4.0); Total Protein 5.1 gm/dl (6.4-8.2)
[2019-11-18] MEDS: OXYCODONE HCL IR 5 MG TAB (IMMEDIATE RELEASE) PO PRN (06:39)
[2019-11-18] MEDS: DOCUSATE SODIUM 100 MG CAP PO SCH ×2 (08:40→21:03)
[2019-11-18] MEDS: MAGNESIUM OXIDE 400 MG TAB PO SCH ×2 (08:41→21:10)
[2019-11-18] MEDS: TOPIRAMATE 100 MG TAB PO SCH ×2 (08:41→21:10)
[2019-11-18] MEDS: LORATADINE 10 MG TAB PO SCH (08:42)
[2019-11-18] MEDS: ESCITALOPRAM OXALATE 10 MG TAB PO SCH (08:42)
[2019-11-18] MEDS: RIFAXIMIN 550 MG TABLET PO SCH ×2 (08:42→21:10)
[2019-11-18] MEDS: ENOXAPARIN INJ 40 MG/0.4 ML SYR SQ SCH (08:43)
[2019-11-18] MEDS: PANTOprazole 40 MG TAB PO SCH (08:43)
[2019-11-18] MEDS: OXcarbazepine 150 MG TABLET PO SCH ×2 (08:44→21:10)
[2019-11-18] MEDS: levETIRAcetam 500 MG TAB PO SCH ×2 (08:44→21:10)
[2019-11-18] MEDS: SPIRONOLACTONE 25 MG TAB PO SCH (08:45)
[2019-11-18] MEDS: INSULIN DEGLUDEC 100 UNITS/ML SQ SCH (08:45)
[2019-11-18] MEDS: LACTULOSE SYRUP 30 GM/45 ML UDP PO SCH ×2 (08:45→21:03)
[2019-11-18] MEDS: INSULIN ASPART 100 UNITS/ML 3 ML PEN SC SCH ×4 (08:46→21:15)
--- NOTE | 2019-11-18 09:32 | XRay Report ---
XR femur RT 2V routine CLINICAL HISTORY: post op 2 weeks ORIF distal femur COMPARISON STUDY: Right femur 11/04/2019. FINDINGS: Status post internal fixation of a distal right femur fracture with a lateral cortical plat e, screws, cerclage wires. The hardware appears intact. Lateral skin jerri are in place. Alignment remains unchanged. There is a distal bony fragment demonstrating up to 9 mm of posterior displacement . This remains unchanged. No significant callus formation to suggest healing at this time. Proximal f emur demonstrates an old, healed intertrochanteric fracture with a intramedullary vijaya and femoral nec k pin. This is also unchanged in alignment. IMPRESSION: Status post internal fixation of the distal femoral fracture. The hardware appears intac t. Alignment is unchanged. ACT 112: Negative or not required by law. Electronically signed by: Talon Cruz M.D. 11/18/2019 9:30 AM
[2019-11-18] MEDS: ZINC SULFATE 220 MG CAPSULE PO SCH (11:42)
[2019-11-18] MEDS: CHOLECALCIFEROL 1,000 UNITS 25 MCG TAB PO SCH (11:42)
[2019-11-18] MEDS: MULTIVITAMIN TAB PO SCH (11:42)
[2019-11-18] MEDS: MAGNESIUM CHLORIDE 64MG DELAYED REL TAB PO SCH (11:42)
[2019-11-18] MEDS: VITAMIN B COMPLEX TAB PO SCH (11:43)
--- NOTE | 2019-11-18 13:24 | Orthopedic Progress Note ---
Date of Service November 18, 2019 Assessment & Plan (1) Closed fracture of right distal femur: s/p ORIF Right distal femur, BUBBA POD#14 -DVT ppx: SCDs, TEDs, Lovenox -NWB RLE -PT/OT -Maintain KI, may remove for gentle range of motion exercises and hygiene purposes. -DC jerri and apply Steri-Strips today. -We will plan to follow-up with the patient in 4 weeks for repeat x-ray she is to continue with current restrictions in the meantime. Admission and Anticipated Discharge Date Admission Date: November 02, 2019 Subjective The patient is being seen for HER-2 week postoperative follow-up appointment, unfortunately patient still resides inpatient due to placement issues and is hopeful to be discharged soon. The patient was seen sitting up in bed today eating lunch. Comfortable appearing. Reports pain slightly improved. No acute issues. Review of Systems Review of Systems: All systems reviewed & are unremarkable except as noted in HPI & below Constitutional: as per Subjective / HPI Physical Exam Physical Exam: RLE NVSI +EHL/FHL/TA/GS SILT grossly, +2 DP pulse, compartments soft NT, incision CDI Constitutional: WD/WN, vitals as above Results & Data ([facility]) Vital Signs (Past 12 Hours) Vital Signs Temp Pulse Resp BP Pulse Ox 11/18/19 07:24 36.9 C 74 16 107/70 97
[2019-11-18] MEDS: PROMETHAZINE HCL 25 MG TAB PO PRN (14:09)
[2019-11-18] MEDS: POLYETHYLENE (MIRALAX) 17 GM PACK PO SCH (16:54)
[2019-11-18] MEDS: SENNA 8.6 MG TAB PO SCH (21:03)
--- NOTE | 2019-11-18 23:51 | Hospitalist Progress Note ---
Date of Service November 18, 2019 Assessment & Plan (1) Hepatic encephalopathy: Patient had an episode of hepatic encephalopathy in the evening of 11/10/2019. Acute hepatic encephalopathy causing AMS and unresponsiveness treated with lactulose and head CT. She had the decreased responsiveness and her ammonia was checked and found to be elevated from her baseline of the 70-80 range. Patient had persistent bowel movements and did have her lactulose increased. she remains in her normal self, her encephalopathy is resolved her lactulose is restarted ammonia 100 today, above her baseline range tolerating Lactulose BID, only one stool today add Miralax daily, takes this at home continue Rifaximin had a decreased responsiveness episode 11/15, but this happens all the time according to her more alert and conversive today repeat ammonia in the morning (2) Case management patient: Continue waiting on case management to continue to pursue the target process for placement for rehab and to a halfway facility for her spiral femur fracture status post surgical repair which will likely take greater than 30 days for rehab as she is 6 weeks nonweightbearing. still awaiting paper work to be completed (3) Closed fracture of right distal femur: Periprosthetic fracture around previous IM nail in right femur, as a result of mechanical fall at home. Right hip x-rays on 11/01 show: "Acute, distracted, and angulated spiral fracture of the distal femoral shaft around the inferior end of the intramedullary nail." - S/p right ORIF with Dr. Thrasher on 11/04/2019. Dressing changed on 11/06 and ortho feel surgical site looking good. - Non-weightbearing right leg x 6-8 weeks. Ortho will get Q2week x-rays to monitor bone bridging to make final determination. - Pain control - Expected acute blood loss anemia in setting of femoral fracture; received a total of 4 units of PRBCs rogelio-operatively. Hgb is stable at 10 on 11/17, drain removed by orthopedics. - PT/OT/CM for placement. Target process required. Psychological evaluation performed 11/08/2019 (4) Liver cirrhosis secondary to STEVE: Patient with liver cirrhosis secondary to STEVE, portal hypertension. Patient follows with gastroenterology, last seen by Dr. Toledo on 04/20/19. HCV screening has been completed and is negative. AFP on 03/09/2019 = 2.6. INR = 1.4 - Continue lactulose & rifaximin - Continue zinc supplementation 50 mg daily - Continue Aldactone for lower extremity edema - Low sodium diet as tolerated - Avoid hepatotoxic agents (5) Seizure disorder: Patient with history of seizure. She follows with neurology, last seen on 04/02/19. EEG completed in May 2018 revealed a generalized spike and slow wave abnormality consistent with an underlying generalized seizure disorder. Patient had an MRI brain completed in October 2017 which was unremarkable. Patient failed VNS placement in the past, device was explanted. Presently on topiramate, Trileptal and Keppra. She was recently seen in the ER on 05/17/19 with report of seizures x 4 at home with a 5th seizure witnessed in triage - shaking her head and upper extremities. After consultation with Neurology, her oxcarbazepine was increased to 600mg po BID. - Continue topiramate 100 mg p.o. twice daily - Continue Trileptal 300 mg p.o. every morning and 600 mg p.o. nightly (this is different from above, but confirms this is current dosing) - Continue Keppra 1500 mg p.o. twice daily no episodes (6) Diabetes: Last hemoglobin A1c=4.6% on 10/20/19. Patient follows with Endocrinology/Diabetes education. - Continue Tresiba 10 units subcu every morning - Sliding scale insulin, was tightened by pt request (7) Severe persistent asthma: History of persistent asthma. She has seen Pulmonary as well as Allergy/Immunology in the past. Spirometry performed on 04/23/19 with FVC=1.37, 38% predicted. FEV1=1.18, 40% predicted and FEV1/FVC=86%. Suggestive of restrictive process vs obstruction with air trapping. Study limited. Formal PFTs ordered, not yet completed. -Patient is stable at this time - DuoNebs PRN (8) Major depressive disorder with psychotic features: Chronic. Stable. Patient presently not on any medications. She was evaluated by inpatient psychiatry for targeting process (9) Blanca's thyroiditis: TSH = 1.56. - Continue Synthroid (10) GERD (gastroesophageal reflux disease): Chronic. Stable. - Continue PPI (11) Hx of migraines: Patient with episodic migraines. Well-controlled. - Continue topiramate no acute episodes - Patient has used Maxalt in the past with success for migraine relief if needed (12) DVT prophylaxis: Lovenox 40 mg SQ daily Admission and Anticipated Discharge Date Admission Date: November 02, 2019 Subjective patient wants to know why she is so lethargic I explained to her that she is getting Oxycodone and her ammonia is 100 she says her pain in leg is always 10/[address] Thrasher, follow up plain films look good she is eating okay, no chest pain, no fever, no dyspnea Review of Systems Review of Systems: All systems reviewed & are unremarkable except as noted in Subjective Constitutional: + fatigue and + weakness Musculoskeletal: + joint pain (right leg) Physical Exam Constitutional: WD/WN, vitals as above Eyes: PERRL, conjunctivae normal, anicteric sclerae ENMT: external ear and nose normal, oropharynx normal Neck: trachea midline, no thyromegaly Respiratory: normal respiratory effort, lungs clear to auscultation Cardiovascular: RRR, no murmur, no edema Gastrointestinal (Abdomen): normal bowel sounds, soft, nontender, no hepatosplenomegaly Musculoskeletal: no cyanosis or clubbing, extremities motor strength 5/5 Head/Neck/Chest: normocephalic, head atraumatic and neck supple Extremities: + abnormal strength (generalized weakness); no cyanosis, no clubbing and no petechiae Skin: no rashes, warm and dry Neurologic: patellar DTR's 2+ bilat, sensation intact and PERRL, EOMI, accommodation nl, no face palsy, no dysarthria Psychiatric: Orientation: oriented to person, oriented to place and oriented to time; + not alert (sleepy) Lymphatic: no cervical or axillary lymphadenopathy Results & Data Results & Data ([facility]) Vital Signs (Past 12 Hours) Vital Signs Temp Pulse Resp BP BP Pulse Ox 11/18/19 23:46 36.7 C 71 16 111/69 97 11/18/19 15:44 36.8 C 79 16 122/75 98 Laboratory Results Laboratory Results - last 24 hr 11/18/19 11/18/19 11/18/19 05:36 05:36 05:39 WBC 3.04 L RBC 2.87 L Hgb 10.0 L Hct 28.6 L MCV 99.7 MCH 34.8 H MCHC 35.0 RDW Std Deviation 67.1 H RDW Coeff of Irina 18.4 H Plt Count 170 MPV 9.0 Sodium 133 L Potassium 3.9 Chloride 105 Carbon Dioxide 22 Anion Gap 6.0 BUN 5 L Creatinine 0.28 L Est Cr Clr Drug Dosing 261.9 Est GFR ( Amer) > 150.0 Est GFR (Non-Af Amer) 133.7 BUN/Creatinine Ratio 17.6 Glucose 83 POC Glucose Calcium 7.4 L Total Bilirubin 1.8 H AST 42 H ALT 36 Alkaline Phosphatase 226 H Ammonia 100.0 H Total Protein 5.1 L Albumin 2.0 L Globulin 3.1 Albumin/Globulin Ratio 0.6 L 11/18/19 11/18/19 11/18/19 08:22 12:13 17:19 WBC RBC Hgb Hct MCV MCH MCHC RDW Std Deviation RDW Coeff of Irina Plt Count MPV Sodium Potassium Chloride Carbon Dioxide Anion Gap BUN Creatinine Est Cr Clr Drug Dosing Est GFR ( Amer) Est GFR (Non-Af Amer) BUN/Creatinine Ratio Glucose POC Glucose 88 193 H 152 H Calcium Total Bilirubin AST ALT Alkaline Phosphatase Ammonia Total Protein Albumin Globulin Albumin/Globulin Ratio 11/18/19 20:49 WBC RBC Hgb Hct MCV MCH MCHC RDW Std Deviation RDW Coeff of Irina Plt Count MPV Sodium Potassium Chloride Carbon Dioxide Anion Gap BUN Creatinine Est Cr Clr Drug Dosing Est GFR ( Amer) Est GFR (Non-Af Amer) BUN/Creatinine Ratio Glucose POC Glucose 194 H Calcium Total Bilirubin AST ALT Alkaline Phosphatase Ammonia Total Protein Albumin Globulin Albumin/Globulin Ratio Medications Administered Current Inpatient Medications Acetaminophen (Tylenol) 1,000 mg PO Q8H PRN PRN Reason: pain/fever Stop: 12/01/19 01:51 Last Admin: 11/04/19 08:25 Dose: 1,000 mg Documented by: Acetaminophen (Acetaminophen 500 Mg Tab) 1,000 mg PO Q8 SHEBA Stop: 12/04/19 21:59 Last Admin: 11/18/19 21:09 Dose: 1,000 mg Documented by: Albuterol (Duoneb) 3 ml INH QID PRN PRN Reason: wheezing Stop: 12/01/19 01:51 Last Admin: 11/15/19 09:48 Dose: 3 ml Documented by: Artificial Tears (Artificial Tears) 2 drops OP TID PRN PRN Reason: dry eyes Stop: 12/01/19 02:17 Bisacodyl (Dulcolax) 10 mg MN DAILY PRN PRN Reason: Constipation Stop: 12/04/19 20:54 Lactulose 200 gm/ Sterile Water 700 ml/ BARCODE IDENTIFIER 1 ea 0 gm MN Q8H PRN PRN Reason: refusal of po lactulose Stop: 12/10/19 18:14 Dextrose (Dextrose 50%) 25 - 50 ml IV UD PRN; Protocol PRN Reason: Hypoglycemia Protocol Stop: 12/01/19 01:51 Diphenhydramine HCl (Benadryl Capsule) 25 mg PO HS PRN PRN Reason: Sleep Stop: 12/02/19 20:59 Diphenhydramine HCl (Benadryl Capsule) 25 mg PO Q8H PRN PRN Reason: Itching Stop: 12/04/19 20:54 Last Admin: 11/13/19 03:12 Dose: 25 mg Documented by: Docusate Sodium (Docusate Sodium 100 Mg Cap) 100 mg PO BID SHEBA Stop: 12/04/19 20:59 Last Admin: 11/18/19 21:03 Dose: Not Given Documented by: Enoxaparin Sodium (Lovenox) 40 mg SQ QAM SHEBA Stop: 12/05/19 08:59 Last Admin: 11/18/19 08:43 Dose: 40 mg Documented by: Escitalopram Oxalate (Lexapro Tab) 5 mg PO QAM SHEBA Stop: 12/08/19 15:59 Last Admin: 11/18/19 08:42 Dose: 5 mg Documented by: Glucagon (Glucagen) 1 mg SQ UD PRN; Protocol PRN Reason: Hypoglycemia Protocol Stop: 12/01/19 01:51 Glucose (Dex4 Glucose) 4 - 8 tabs PO UD PRN; Protocol PRN Reason: Hypoglycemia Protocol Stop: 12/01/19 01:51 Glucose (Glucose 40%) 15 - 30 gm PO UD PRN; Protocol PRN Reason: Hypoglycemia Protocol Stop: 12/01/19 01:51 Heparin Sodium (Porcine) (Heparin Sod 100 Unit/Ml Flush) 5 ml FLUSH PRN PRN PRN Reason: Flush Stop: 12/01/19 06:50 Last Admin: 11/16/19 05:34 Dose: 5 ml Documented by: Lorazepam (Ativan) 0.5 mg in 1 mls @ 1 mls/min IV Q6H PRN PRN Reason: Agitation Stop: 12/10/19 14:59 Promethazine HCl 12.5 mg/ (Sodium Chloride) 50.5 mls @ 202 mls/hr IV Q6H PRN PRN Reason: Nausea And Vomiting Stop: 12/15/19 15:29 Insulin Aspart (Insulin Aspart 100 Units/Ml 3 Ml Pen) 0 units SC ACHS [facility] Stop: 12/01/19 02:29 Last Admin: 11/18/19 21:15 Dose: 5 units Documented by: Insulin Degludec (Tresiba Flextouch U-100) 10 units SQ QAM [facility] Stop: 12/09/19 08:59 Last Admin: 11/18/19 08:45 Dose: 10 units Documented by: Lactulose (Lactulose Syrup 30 Gm/45 Ml Udp) 30 gm PO BID [facility] Stop: 12/12/19 10:29 Last Admin: 11/18/19 21:03 Dose: Not Given Documented by: Levetiracetam (Keppra) 1,500 mg PO BID [facility] Stop: 12/01/19 08:59 Last Admin: 11/18/19 21:10 Dose: 1,500 mg Documented by: Levothyroxine Sodium (Synthroid) 50 mcg PO DAILYBB [facility] Stop: 12/01/19 06:29 Last Admin: 11/18/19 06:01 Dose: 50 mcg Documented by: Loratadine (Claritin) 10 mg PO QAM [facility] Stop: 12/01/19 08:59 Last Admin: 11/18/19 08:42 Dose: 10 mg Documented by: Magnesium Chloride (Slow-Mag) 128 mg PO QDL [facility] Stop: 12/01/19 11:29 Last Admin: 11/18/19 11:42 Dose: 128 mg Documented by: Magnesium Hydroxide (Milk Of Magnesia) 30 ml PO Q6H PRN PRN Reason: Constipation Stop: 12/04/19 20:54 Last Admin: 11/07/19 17:38 Dose: 30 ml Documented by: Magnesium Oxide (Mag-Ox) 400 mg PO BID [facility] Stop: 12/08/19 08:59 Last Admin: 11/18/19 21:10 Dose: 400 mg Documented by: Melatonin (Melatonin) 15 mg PO HSZ PRN PRN Reason: Sleep Stop: 12/01/19 02:09 Metoclopramide HCl (Reglan) 10 mg IV Q6H PRN PRN Reason: Nausea And Vomiting Stop: 12/04/19 20:54 Last Admin: 11/15/19 03:37 Dose: 10 mg Documented by: Miscellaneous (Carbohydrates For Hypoglycemia) 15 - 30 gm PO UD PRN PRN Reason: Hypoglycemia Protocol Stop: 12/01/19 01:51 Multivitamins (Multivitamin Tab) 1 tab PO QDL [facility] Stop: 12/01/19 11:29 Last Admin: 11/18/19 11:42 Dose: 1 tab Documented by: Naloxone HCl (Narcan) 0.1 mg IV Q5M PRN PRN Reason: Oversedation/Resp Depression Stop: 12/04/19 20:54 Ondansetron HCl (Zofran) 4 mg IV Q6H PRN PRN Reason: Nausea Stop: 12/01/19 01:51 Last Admin: 11/15/19 01:07 Dose: 4 mg Documented by: Ondansetron HCl (Zofran) 4 mg IV Q6H PRN PRN Reason: Nausea And Vomiting Stop: 12/04/19 20:54 Oxcarbazepine (Trileptal) 300 mg PO QAM [facility] Stop: 12/01/19 08:59 Last Admin: 11/18/19 08:44 Dose: 300 mg Documented by: Oxcarbazepine (Trileptal) 600 mg PO HS [facility] Stop: 12/01/19 20:59 Last Admin: 11/18/19 21:10 Dose: 600 mg Documented by: Pantoprazole Sodium (Protonix) 40 mg PO QAM [facility] Stop: 12/01/19 08:59 Last Admin: 11/18/19 08:43 Dose: 40 mg Documented by: Polyethylene Glycol (Polyethylene (Miralax) 17 Gm Pack) 17 gm PO DAILY [facility] Stop: 12/18/19 16:44 Last Admin: 11/18/19 16:54 Dose: Not Given Documented by: Promethazine HCl (Phenergan) 25 mg PO Q6H PRN PRN Reason: sedation Stop: 12/01/19 01:51 Last Admin: 11/18/19 14:09 Dose: 25 mg Documented by: Rifaximin (Xifaxan) 550 mg PO BID [facility] Stop: 12/01/19 08:59 Last Admin: 11/18/19 21:10 Dose: 550 mg Documented by: Sennosides (Senokot) 17.2 mg PO HS [facility] Stop: 12/04/19 20:59 Last Admin: 11/18/19 21:03 Dose: Not Given Documented by: Sodium Chloride (Landfall Nasal) 1 sprays NA BID PRN PRN Reason: dry nasal passages Stop: 12/01/19 01:51 Spironolactone (Aldactone) 50 mg PO QAM [facility] Stop: 12/01/19 08:59 Last Admin: 11/18/19 08:45 Dose: 50 mg Documented by: Topiramate (Topamax) 100 mg PO BID [facility] Stop: 12/01/19 08:59 Last Admin: 11/18/19 21:10 Dose: 100 mg Documented by: Vitamin B Complex (Vitamin B Complex) 1 tab PO QDL [facility] Stop: 12/01/19 11:29 Last Admin: 11/18/19 11:43 Dose: 1 tab Documented by: Vitamin D (Vitamin D3) 1,000 units PO QDL [facility] Stop: 12/01/19 11:29 Last Admin: 11/18/19 11:42 Dose: 1,000 units Documented by: Zinc Sulfate (Zinc Sulfate) 220 mg PO QDL [facility] Stop: 12/01/19 11:29 Last Admin: 11/18/19 11:42 Dose: 220 mg Documented by: PG Care Time/CCT Total # of Minutes Spent Total Time Spent with Patient: Total time spent is greater than 50% in coordination of care (as documented) at patient's floor/unit and/or counseling patient: Coding Level of Care Code 46123 Subseq Hosp Care Lvl 2 Diagnoses Hepatic encephalopathy K72.90 Case management patient Closed fracture of right distal femur S72.401A Liver cirrhosis secondary to STEVE K75.81; K74.60 Seizure disorder G40.909 Diabetes E11.69; Z79.4 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 complication status: with other specified complication 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 joint terminal attack controller insulin use: with joint terminal attack controller use 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 type: type 2 Severe persistent asthma J45.50 Asthma complication type: uncomplicated Major depressive disorder with psychotic features F32.3 Blanca's thyroiditis E06.3 GERD (gastroesophageal reflux disease) K21.9 Esophagitis presence: esophagitis presence not specified Hx of migraines Z86.69 DVT prophylaxis Z29.9 (1) Diabetes 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 complication status: with other specified complication 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 residential insulin use: with residential use 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 type: type 2 Qualified Code(s): E11.69 - Type 2 diabetes mellitus with other specified complication; Z79.4 - alf (current) use of insulin (2) Severe persistent asthma Asthma complication type: uncomplicated Qualified Code(s): J45.50 - Severe persistent asthma, uncomplicated (3) GERD (gastroesophageal reflux disease) Esophagitis presence: esophagitis presence not specified Qualified Code(s): K21.9 - Gastro-esophageal reflux disease without esophagitis
[2019-11-19] MEDS: PROMETHAZINE HCL 25 MG TAB PO PRN (04:56)
[2019-11-19] MEDS: ACETAMINOPHEN 500 MG TAB PO SCH ×3 (05:59→20:59)
[2019-11-19] MEDS: LEVOTHYROXINE SODIUM 50 MCG TABLET PO SCH (06:01)
[2019-11-19] MEDS: HEPARIN 100 UNIT/ML 5ML FLUSH FLUSH PRN (06:32)
[2019-11-19] MEDS: RIFAXIMIN 550 MG TABLET PO SCH ×2 (08:47→20:59)
[2019-11-19] MEDS: TOPIRAMATE 100 MG TAB PO SCH ×2 (08:48→20:59)
[2019-11-19] MEDS: PANTOprazole 40 MG TAB PO SCH (08:48)
[2019-11-19] MEDS: OXcarbazepine 150 MG TABLET PO SCH ×2 (08:48→20:59)
[2019-11-19] MEDS: ESCITALOPRAM OXALATE 10 MG TAB PO SCH (08:49)
[2019-11-19] MEDS: LACTULOSE SYRUP 30 GM/45 ML UDP PO SCH ×2 (08:50→21:00)
[2019-11-19] MEDS: LORATADINE 10 MG TAB PO SCH (08:50)
[2019-11-19] MEDS: levETIRAcetam 500 MG TAB PO SCH ×2 (08:50→21:51)
[2019-11-19] MEDS: DOCUSATE SODIUM 100 MG CAP PO SCH ×2 (08:50→21:00)
[2019-11-19] MEDS: SPIRONOLACTONE 25 MG TAB PO SCH (08:50)
[2019-11-19] MEDS: MAGNESIUM OXIDE 400 MG TAB PO SCH ×2 (08:51→20:59)
[2019-11-19] MEDS: INSULIN ASPART 100 UNITS/ML 3 ML PEN SC SCH ×4 (08:51→21:03)
[2019-11-19] MEDS: ENOXAPARIN INJ 40 MG/0.4 ML SYR SQ SCH (08:51)
[2019-11-19] MEDS: INSULIN DEGLUDEC 100 UNITS/ML SQ SCH (08:51)
[2019-11-19] MEDS: POLYETHYLENE (MIRALAX) 17 GM PACK PO SCH (09:18)
[2019-11-19] MEDS: ZINC SULFATE 220 MG CAPSULE PO SCH (12:36)
[2019-11-19] MEDS: MAGNESIUM CHLORIDE 64MG DELAYED REL TAB PO SCH (12:37)
[2019-11-19] MEDS: VITAMIN B COMPLEX TAB PO SCH (12:37)
[2019-11-19] MEDS: MULTIVITAMIN TAB PO SCH (12:37)
[2019-11-19] MEDS: CHOLECALCIFEROL 1,000 UNITS 25 MCG TAB PO SCH (12:37)
[2019-11-19] MEDS: SENNA 8.6 MG TAB PO SCH (21:04)
[2019-11-20] MEDS: PROMETHAZINE HCL 25 MG TAB PO PRN ×2 (03:13→10:32)
[2019-11-20] MEDS: HEPARIN 100 UNIT/ML 5ML FLUSH FLUSH PRN ×2 (05:46→12:02)
[2019-11-20] MEDS: LEVOTHYROXINE SODIUM 50 MCG TABLET PO SCH (06:12)
[2019-11-20] MEDS: ACETAMINOPHEN 500 MG TAB PO SCH ×3 (06:12→21:03)
[2019-11-20 06:25] LABS: Alanine Aminotransferase 30 U/L (12-78); Albumin Level 1.8 gm/dl (3.4-5.0); Aspartate Aminotransferase 35 U/L (15-37); BUN Creatinine Ratio 14.7 (10-20); Blood Urea Nitrogen 4 mg/dl (7-18); Calcium 7.4 mg/dl (8.5-10.1); Carbon Dioxide 22 mmol/L (21-32); Chloride 108 mmol/L (98-107); Creatinine Clr Calc Pharmacy 261.9 ml/min; Est GFR (African American) > 150.0; Est GFR (Non-African American) 133.7; Glucose 79 mg/dl (70-99); Potassium 3.9 mmol/L (3.5-5.1); Sodium 135 mmol/L (136-145)
[2019-11-20 06:27] LABS: Albumin Globulin Ratio 0.7 (0.9-2); Alkaline Phosphatase 216 U/L (45-117); Bilirubin,Total 1.5 mg/dl (0.2-1); Globulin 2.7 gm/dl (2.5-4.0); Total Protein 4.5 gm/dl (6.4-8.2)
[2019-11-20] MEDS: OXcarbazepine 150 MG TABLET PO SCH ×2 (08:38→20:58)
[2019-11-20] MEDS: RIFAXIMIN 550 MG TABLET PO SCH ×2 (08:38→21:00)
[2019-11-20] MEDS: levETIRAcetam 500 MG TAB PO SCH ×2 (08:39→20:56)
[2019-11-20] MEDS: MAGNESIUM OXIDE 400 MG TAB PO SCH ×2 (08:39→20:57)
[2019-11-20] MEDS: ESCITALOPRAM OXALATE 10 MG TAB PO SCH (08:39)
[2019-11-20] MEDS: PANTOprazole 40 MG TAB PO SCH (08:39)
[2019-11-20] MEDS: TOPIRAMATE 100 MG TAB PO SCH ×2 (08:39→20:58)
[2019-11-20] MEDS: LORATADINE 10 MG TAB PO SCH (08:39)
[2019-11-20] MEDS: DOCUSATE SODIUM 100 MG CAP PO SCH ×2 (08:40→20:51)
[2019-11-20] MEDS: INSULIN DEGLUDEC 100 UNITS/ML SQ SCH (08:40)
[2019-11-20] MEDS: ENOXAPARIN INJ 40 MG/0.4 ML SYR SQ SCH (08:40)
[2019-11-20] MEDS: POLYETHYLENE (MIRALAX) 17 GM PACK PO SCH (08:40)
[2019-11-20] MEDS: LACTULOSE SYRUP 30 GM/45 ML UDP PO SCH ×3 (08:40→17:29)
[2019-11-20] MEDS: SPIRONOLACTONE 25 MG TAB PO SCH (08:40)
[2019-11-20] MEDS: INSULIN ASPART 100 UNITS/ML 3 ML PEN SC SCH ×4 (08:41→20:53)
[2019-11-20] MEDS: ONDANSETRON INJ 2 MG/ML 2 ML VIAL IV PRN (12:02)
[2019-11-20] MEDS: CHOLECALCIFEROL 1,000 UNITS 25 MCG TAB PO SCH (12:59)
[2019-11-20] MEDS: VITAMIN B COMPLEX TAB PO SCH (12:59)
[2019-11-20] MEDS: ZINC SULFATE 220 MG CAPSULE PO SCH (12:59)
[2019-11-20] MEDS: MULTIVITAMIN TAB PO SCH (13:00)
[2019-11-20] MEDS: MAGNESIUM CHLORIDE 64MG DELAYED REL TAB PO SCH (13:00)
[2019-11-20] MEDS ORDERED: PROMETHAZINE HCL 12.5 MG in SODIUM CHLORIDE 0.9% 50 ML IV PRN (16:16)
[2019-11-20] MEDS: SENNA 8.6 MG TAB PO SCH (20:51)
[2019-11-21] MEDS: LEVOTHYROXINE SODIUM 50 MCG TABLET PO SCH (06:09)
[2019-11-21] MEDS: ACETAMINOPHEN 500 MG TAB PO SCH ×3 (06:09→21:49)
[2019-11-21] MEDS: ESCITALOPRAM OXALATE 10 MG TAB PO SCH (08:57)
[2019-11-21] MEDS: PANTOprazole 40 MG TAB PO SCH (08:58)
[2019-11-21] MEDS: DOCUSATE SODIUM 100 MG CAP PO SCH ×2 (08:58→20:28)
[2019-11-21] MEDS: POLYETHYLENE (MIRALAX) 17 GM PACK PO SCH (08:59)
[2019-11-21] MEDS: LACTULOSE SYRUP 30 GM/45 ML UDP PO SCH ×3 (08:59→18:03)
[2019-11-21] MEDS: OXcarbazepine 150 MG TABLET PO SCH ×2 (09:12→20:28)
[2019-11-21] MEDS: RIFAXIMIN 550 MG TABLET PO SCH ×2 (09:12→20:29)
[2019-11-21] MEDS: SPIRONOLACTONE 25 MG TAB PO SCH (09:13)
[2019-11-21] MEDS: TOPIRAMATE 100 MG TAB PO SCH ×2 (09:13→20:29)
[2019-11-21] MEDS: MAGNESIUM OXIDE 400 MG TAB PO SCH ×2 (09:13→20:29)
[2019-11-21] MEDS: ENOXAPARIN INJ 40 MG/0.4 ML SYR SQ SCH (09:13)
[2019-11-21] MEDS: levETIRAcetam 500 MG TAB PO SCH ×2 (09:14→20:31)
[2019-11-21] MEDS: LORATADINE 10 MG TAB PO SCH (09:15)
[2019-11-21] MEDS: INSULIN ASPART 100 UNITS/ML 3 ML PEN SC SCH ×4 (09:16→20:27)
[2019-11-21] MEDS: INSULIN DEGLUDEC 100 UNITS/ML SQ SCH (09:19)
[2019-11-21] MEDS: VITAMIN B COMPLEX TAB PO SCH (12:45)
[2019-11-21] MEDS: CHOLECALCIFEROL 1,000 UNITS 25 MCG TAB PO SCH (12:46)
[2019-11-21] MEDS: MULTIVITAMIN TAB PO SCH (12:46)
[2019-11-21] MEDS: MAGNESIUM CHLORIDE 64MG DELAYED REL TAB PO SCH (12:46)
[2019-11-21] MEDS: ZINC SULFATE 220 MG CAPSULE PO SCH (12:47)
[2019-11-21] MEDS ORDERED: PROMETHAZINE HCL 25 MG in SODIUM CHLORIDE 0.9% 50 ML IV PRN (16:00)
--- NOTE | 2019-11-21 16:57 | Hospitalist Progress Note ---
Date of Service November 19, 2019 Assessment & Plan (1) Hepatic encephalopathy: Patient had an episode of hepatic encephalopathy in the evening of 11/10/2019. Acute hepatic encephalopathy causing AMS and unresponsiveness treated with lactulose and head CT. She had the decreased responsiveness and her ammonia was checked and found to be elevated from her baseline of the 70-80 range. Patient had persistent bowel movements and did have her lactulose increased. she remains in her normal self, her encephalopathy is resolved her lactulose is restarted ammonia trending up slightly tolerating Lactulose BID, may need to increase to TID add Miralax daily, takes this at home continue Rifaximin had a decreased responsiveness episode 11/15, but this happens all the time according to her more alert and conversive today repeat ammonia in the morning (2) Case management patient: Continue waiting on case management to continue to pursue the target process for placement for rehab and to a senior living facility for her spiral femur fracture status post surgical repair which will likely take greater than 30 days for rehab as she is 6 weeks nonweightbearing. still awaiting paper work to be completed (3) Closed fracture of right distal femur: Periprosthetic fracture around previous IM nail in right femur, as a result of mechanical fall at home. Right hip x-rays on 11/01 show: "Acute, distracted, and angulated spiral fracture of the distal femoral shaft around the inferior end of the intramedullary nail." - S/p right ORIF with Dr. Thrasher on 11/04/2019. Dressing changed on 11/06 and ortho feel surgical site looking good. - Non-weightbearing right leg x 6-8 weeks. Ortho will get Q2week x-rays to monitor bone bridging to make final determination. - Pain control - Expected acute blood loss anemia in setting of femoral fracture; received a total of 4 units of PRBCs rogelio-operatively. Hgb is stable at 10 on 11/17, drain removed by orthopedics. - PT/OT/CM for placement. Target process required. Psychological evaluation performed 11/08/2019 (4) Liver cirrhosis secondary to STEVE: Patient with liver cirrhosis secondary to STEVE, portal hypertension. Patient follows with gastroenterology, last seen by Dr. Toledo on 04/20/19. HCV screening has been completed and is negative. AFP on 03/09/2019 = 2.6. INR = 1.4 - Continue lactulose & rifaximin - Continue zinc supplementation 50 mg daily - Continue Aldactone for lower extremity edema - Low sodium diet as tolerated - Avoid hepatotoxic agents (5) Seizure disorder: Patient with history of seizure. She follows with neurology, last seen on 04/02/19. EEG completed in May 2018 revealed a generalized spike and slow wave abnormality consistent with an underlying generalized seizure disorder. Patient had an MRI brain completed in October 2017 which was unremarkable. Patient failed VNS placement in the past, device was explanted. Presently on topiramate, Trileptal and Keppra. She was recently seen in the ER on 05/17/19 with report of seizures x 4 at home with a 5th seizure witnessed in triage - shaking her head and upper extremities. After consultation with Neurology, her oxcarbazepine was increased to 600mg po BID. - Continue topiramate 100 mg p.o. twice daily - Continue Trileptal 300 mg p.o. every morning and 600 mg p.o. nightly (this is different from above, but confirms this is current dosing) - Continue Keppra 1500 mg p.o. twice daily no episodes (6) Diabetes: Last hemoglobin A1c=4.6% on 10/20/19. Patient follows with Endocrinology/Diabetes education. - Continue Tresiba 10 units subcu every morning - Sliding scale insulin, was tightened by pt request (7) Severe persistent asthma: History of persistent asthma. She has seen Pulmonary as well as Allergy/Immunology in the past. Spirometry performed on 04/23/19 with FVC=1.37, 38% predicted. FEV1=1.18, 40% predicted and FEV1/FVC=86%. Suggestive of restrictive process vs obstruction with air trapping. Study limited. Formal PFTs ordered, not yet completed. -Patient is stable at this time - DuoNebs PRN (8) Major depressive disorder with psychotic features: Chronic. Stable. Patient presently not on any medications. She was evaluated by inpatient psychiatry for targeting process (9) Blanca's thyroiditis: TSH = 1.56. - Continue Synthroid (10) GERD (gastroesophageal reflux disease): Chronic. Stable. - Continue PPI (11) Hx of migraines: Patient with episodic migraines. Well-controlled. - Continue topiramate no acute episodes - Patient has used Maxalt in the past with success for migraine relief if needed (12) DVT prophylaxis: Lovenox 40 mg SQ daily Admission and Anticipated Discharge Date Admission Date: November 02, 2019 Subjective no major issues only complaint is pain in right leg having diarrhea from Lactulose ammonia is trending up Review of Systems Review of Systems: All systems reviewed & are unremarkable except as noted in Subjective Gastrointestinal: + diarrhea/loose stools Musculoskeletal: + joint pain Physical Exam Constitutional: WD/WN, vitals as above Eyes: PERRL, conjunctivae normal, anicteric sclerae ENMT: external ear and nose normal, oropharynx normal Neck: trachea midline, no thyromegaly Respiratory: normal respiratory effort, lungs clear to auscultation Cardiovascular: RRR, no murmur, no edema Gastrointestinal (Abdomen): normal bowel sounds, soft, nontender, no hepato splenomegaly Musculoskeletal: no cyanosis or clubbing, extremities motor strength 5/5 Head/Neck/Chest: normocephalic, head atraumatic and neck supple Extremities: + abnormal strength (generalized weakness); no cyanosis, no clubbing and no petechiae Skin: no rashes, warm and dry Neurologic: patellar DTR's 2+ bilat, sensation intact and PERRL, EOMI, accommodation nl, no face palsy, no dysarthria Psychiatric: Orientation: oriented to person, oriented to place and oriented to time; + not alert (sleepy) Lymphatic: no cervical or axillary lymphadenopathy Results & Data Results & Data ([facility]) Medications Administered PG Care Time/CCT Total # of Minutes Spent Total Time Spent with Patient: Total time spent is greater than 50% in coordination of care (as documented) at patient's floor/unit and/or counseling patient: Coding Level of Care Code 08787 Subseq Hosp Care Lvl 1 Diagnoses Hepatic encephalopathy K72.90 Case management patient Closed fracture of right distal femur S72.401A Liver cirrhosis secondary to STEVE K75.81; K74.60 Seizure disorder G40.909 Diabetes E11.69; Z79.4 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 complication status: with other specified complication 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 automat [employer] insulin use: with senior care use 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 type: type 2 Severe persistent asthma J45.50 Asthma complication type: uncomplicated Major depressive disorder with psychotic features F32.3 Blanca's thyroiditis E06.3 GERD (gastroesophageal reflux disease) K21.9 Esophagitis presence: esophagitis presence not specified Hx of migraines Z86.69 DVT prophylaxis Z29.9 (1) Diabetes 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 complication status: with other specified complication 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 senior care insulin use: with senior care use 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 type: type 2 Qualified Code(s): E11.69 - Type 2 diabetes mellitus with other specified complication; Z79.4 - bed bug exterminator (current) use of insulin (2) Severe persistent asthma Asthma complication type: uncomplicated Qualified Code(s): J45.50 - Severe persistent asthma, uncomplicated (3) GERD (gastroesophageal reflux disease) Esophagitis presence: esophagitis presence not specified Qualified Code(s): K21.9 - Gastro-esophageal reflux disease without esophagitis
[2019-11-21] MEDS: HEPARIN 100 UNIT/ML 5ML FLUSH FLUSH PRN (18:58)
[2019-11-21] MEDS: SENNA 8.6 MG TAB PO SCH (20:30)
--- NOTE | 2019-11-21 22:20 | Hospitalist Progress Note ---
Date of Service November 20, 2019 Assessment & Plan (1) Hepatic encephalopathy: Patient had an episode of hepatic encephalopathy in the evening of 11/10/2019. Acute hepatic encephalopathy causing AMS and unresponsiveness treated with lactulose and head CT. She had the decreased responsiveness and her ammonia was checked and found to be elevated from her baseline of the 70-80 range. Patient had persistent bowel movements and did have her lactulose increased. she remains in her normal self, her encephalopathy is resolved her lactulose is restarted ammonia trending up past three days tolerating Lactulose BID, may need to increase to TID but will check ammonia tomorrow add Miralax daily, takes this at home continue Rifaximin had a decreased responsiveness episode 11/15, but this happens all the time according to her more alert and conversive today repeat ammonia in the morning (2) Case management patient: Continue waiting on case management to continue to pursue the target process for placement for rehab and to a long-term facility for her spiral femur fracture status post surgical repair which will likely take greater than 30 days for rehab as she is 6 weeks nonweightbearing. still awaiting paper work to be completed at this point she will be here all weekend (3) Closed fracture of right distal femur: Periprosthetic fracture around previous IM nail in right femur, as a result of mechanical fall at home. Right hip x-rays on 11/01 show: "Acute, distracted, and angulated spiral fracture of the distal femoral shaft around the inferior end of the intramedullary nail." - S/p right ORIF with Dr. Thrasher on 11/04/2019. Dressing changed on 11/06 and ortho feel surgical site looking good. - Non-weightbearing right leg x 6-8 weeks. Ortho will get Q2week x-rays to monitor bone bridging to make final determination. - Pain control - Expected acute blood loss anemia in setting of femoral fracture; received a total of 4 units of PRBCs rogelio-operatively. Hgb is stable at 10 on 11/17, drain removed by orthopedics. - PT/OT/CM for placement. Target process required. Psychological evaluation pe rformed 11/08/2019 (4) Liver cirrhosis secondary to STEVE: Patient with liver cirrhosis secondary to STEVE, portal hypertension. Patient follows with gastroenterology, last seen by Dr. Toledo on 04/20/19. HCV screening has been completed and is negative. AFP on 03/09/2019 = 2.6. INR = 1.4 - Continue lactulose & rifaximin - Continue zinc supplementation 50 mg daily - Continue Aldactone for lower extremity edema - Low sodium diet as tolerated - Avoid hepatotoxic agents (5) Seizure disorder: Patient with history of seizure. She follows with neurology, last seen on 04/02/19. EEG completed in May 2018 revealed a generalized spike and slow wave abnormality consistent with an underlying generalized seizure disorder. Patient had an MRI brain completed in October 2017 which was unremarkable. Patient failed VNS placement in the past, device was explanted. Presently on topiramate, Trileptal and Keppra. She was recently seen in the ER on 05/17/19 with report of seizures x 4 at home with a 5th seizure witnessed in triage - shaking her head and upper extremities. After consultation with Neurology, her oxcarbazepine was increased to 600mg po BID. - Continue topiramate 100 mg p.o. twice daily - Continue Trileptal 300 mg p.o. every morning and 600 mg p.o. nightly (this is different from above, but confirms this is current dosing) - Continue Keppra 1500 mg p.o. twice daily no episodes (6) Diabetes: Last hemoglobin A1c=4.6% on 10/20/19. Patient follows with Endocrinology/Diabetes education. - Continue Tresiba 10 units subcu every morning - Sliding scale insulin, was tightened by pt request (7) Severe persistent asthma: History of persistent asthma. She has seen Pulmonary as well as Allergy/Immunology in the past. Spirometry performed on 04/23/19 with FVC=1.37, 38% predicted. FEV1=1.18, 40% predicted and FEV1/FVC=86%. Suggestive of restrictive process vs obstruction with air trapping. Study limited. Formal PFTs ordered, not yet completed. -Patient is stable at this time - DuoNebs PRN (8) Major depressive disorder with psychotic features: Chronic. Stable. Patient presently not on any medications. She was evaluated by inpatient psychiatry for targeting process (9) Blanca's thyroiditis: TSH = 1.56. - Continue Synthroid (10) GERD (gastroesophageal reflux disease): Chronic. Stable. - Continue PPI (11) Hx of migraines: Patient with episodic migraines. Well-controlled. - Continue topiramate no acute episodes - Patient has used Maxalt in the past with success for migraine relief if needed (12) DVT prophylaxis: Lovenox 40 mg SQ daily Admission and Anticipated Discharge Date Admission Date: November 02, 2019 Subjective patient resting all day, no major issues will several BM ammonia trending up still patient requests a lactulose enema, told her to take lactulose TID she says her drill hand told her to not drink after 7pm, told her we can give it to her before 7pm still with pain in right leg, requesting pain medication, discussed that it is not safe with her lethargy Review of Systems Review of Systems: All systems reviewed & are unremarkable except as noted in Subjective Gastrointestinal: + diarrhea/loose stools Musculoskeletal: + joint pain Physical Exam Constitutional: WD/WN, vitals as above Eyes: PERRL, conjunctivae normal, anicteric sclerae ENMT: external ear and nose normal, oropharynx normal Neck: trachea midline, no thyromegaly Respiratory: normal respiratory effort, lungs clear to auscultation Cardiovascular: RRR, no murmur, no edema Gastrointestinal (Abdomen): normal bowel sounds, soft, nontender, no hepatosplenomegaly Musculoskeletal: no cyanosis or clubbing, extremities motor strength 5/5 Head/Neck/Chest: normocephalic, head atraumatic and neck supple Extremities: + abnormal strength (generalized weakness); no cyanosis, no clubbing and no petechiae Skin: no rashes, warm and dry Neurologic: patellar DTR's 2+ bilat, sensation intact and PERRL, EOMI, accommodation nl, no face palsy, no dysarthria Psychiatric: Orientation: oriented to person, oriented to place and oriented to time; + not alert (sleepy) Lymphatic: no cervical or axillary lymphadenopathy Results & Data Results & Data ([facility]) Vital Signs (Past 12 Hours) Vital Signs Temp Pulse Resp BP Pulse Ox 11/21/19 15:17 36.5 C 85 18 129/77 98 PG Care Time/CCT Total # of Minutes Spent Total Time Spent with Patient: Total time spent is greater than 50% in coordin ation of care (as documented) at patient's floor/unit and/or counseling patient: Coding Level of Care Code 18776 Subseq Hosp Care Lvl 1 Diagnoses Hepatic encephalopathy K72.90 Case management patient Closed fracture of right distal femur S72.401A Liver cirrhosis secondary to STEVE K75.81; K74.60 Seizure disorder G40.909 Diabetes E11.69; Z79.4 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 complication status: with other specified complication 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 [facility] insulin use: with supervisor long goods use 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 type: type 2 Severe persistent asthma J45.50 Asthma complication type: uncomplicated Major depressive disorder with psychotic features F32.3 Blanca's thyroiditis E06.3 GERD (gastroesophageal reflux disease) K21.9 Esophagitis presence: esophagitis presence not specified Hx of migraines Z86.69 DVT prophylaxis Z29.9 (1) Diabetes 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 complication status: with other specified complication 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 [facility] insulin use: with supervisor long goods use 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 type: type 2 Qualified Code(s): E11.69 - Type 2 diabetes mellitus with other specified complication; Z79.4 - assisted (current) use of insulin (2) Severe persistent asthma Asthma complication type: uncomplicated Qualified Code(s): J45.50 - Severe persistent asthma, uncomplicated (3) GERD (gastroesophageal reflux disease) Esophagitis presence: esophagitis presence not specified Qualified Code(s): K21.9 - Gastro-esophageal reflux disease without esophagitis
--- NOTE | 2019-11-21 22:24 | Hospitalist Progress Note ---
Date of Service November 21, 2019 Assessment & Plan (1) Hepatic encephalopathy: Patient had an episode of hepatic encephalopathy in the evening of 11/10/2019. Acute hepatic encephalopathy causing AMS and unresponsiveness treated with lactulose and head CT. She had the decreased responsiveness and her ammonia was checked and found to be elevated from her baseline of the 70-80 range. Patient had persistent bowel movements and did have her lactulose increased. she remains in her normal self, her encephalopathy is resolved her lactulose is restarted ammonia trending up past three days, it is 119 today, normal for her is 70-80 range continue Rifaximin increase Lactulose to TID, look for improvement in ammonia no episodes of encephalopathy since 11/09 had a decreased responsiveness episode 11/15, but this happens all the time according to her more alert and conversive past few days repeat ammonia in the morning (2) Case management patient: Continue waiting on case management to continue to pursue the target process for placement for rehab and to a senior living facility for her spiral femur fracture status post surgical repair which will likely take greater than 30 days for rehab as she is 6 weeks nonweightbearing. still awaiting paper work to be completed at this point she will be here all weekend, hopeful for discharge to [facility] on Friday (3) Closed fracture of right distal femur: Periprosthetic fracture around previous IM nail in right femur, as a result of mechanical fall at home. Right hip x-rays on 11/01 show: "Acute, distracted, and angulated spiral fracture of the distal femoral shaft around the inferior end of the intramedullary nail." - S/p right ORIF with Dr. Thrasher on 11/04/2019. Dressing changed on 11/06 and ortho feel surgical site looking good. - Non-weightbearing right leg x 6-8 weeks. Ortho will get Q2week x-rays to monitor bone bridging to make final determination. - Pain control with non-narcotics, she will say that the pain is a 10 out of 10 every day to try to get pain medications - Expected acute blood loss anemia in setting of femoral fracture; received a total of 4 units of PRBCs rogelio-operatively. Hgb is stable at 10 on 11/17, drain removed by orthopedics. - PT/OT/CM for placement. Target process required. Psychological evaluation performed 11/08/2019 (4) Liver cirrhosis secondary to STEVE: Patient with liver cirrhosis secondary to STEVE, portal hypertension. Patient follows with gastroenterology, last seen by Dr. Toledo on 04/20/19. HCV screening has been completed and is negative. AFP on 03/09/2019 = 2.6. INR = 1.4 - Continue lactulose & rifaximin - Continue zinc supplementation 50 mg daily - Continue Aldactone for lower extremity edema - Low sodium diet as tolerated - Avoid hepatotoxic agents (5) Seizure disorder: Patient with history of seizure. She follows with neurology, last seen on 04/02/19. EEG completed in May 2018 revealed a generalized spike and slow wave abnormality consistent with an underlying generalized seizure disorder. Patient had an MRI brain completed in October 2017 which was unremarkable. Patient failed VNS placement in the past, device was explanted. Presently on topiramate, Trileptal and Keppra. She was recently seen in the ER on 05/17/19 with report of seizures x 4 at home with a 5th seizure witnessed in triage - shaking her head and upper extremities. After consultation with Neurology, her oxcarbazepine was increased to 600mg po BID. - Continue topiramate 100 mg p.o. twice daily - Continue Trileptal 300 mg p.o. every morning and 600 mg p.o. nightly (this is different from above, but confirms this is current dosing) - Continue Keppra 1500 mg p.o. twice daily no episodes all week (6) Diabetes: Last hemoglobin A1c=4.6% on 10/20/19. Patient follows with Endocrinology/Diabetes education. - Continue Tresiba 10 units subcu every morning - Sliding scale insulin, was tightened by pt request (7) Severe persistent asthma: History of persistent asthma. She has seen Pulmonary as well as Allergy/Immunology in the past. Spirometry performed on 04/23/19 with FVC=1.37, 38% predicted. FEV1=1.18, 40% predicted and FEV1/FVC=86%. Suggestive of restrictive process vs obstruction with air trapping. Study limited. Formal PFTs ordered, not yet completed. -Patient is stable at this time - DuoNebs PRN (8) Major depressive disorder with psychotic features: Chronic. Stable. Patient presently not on any medications. She was evaluated by inpatient psychiatry for targeting process (9) Blanca's thyroiditis: TSH = 1.56. - Continue Synthroid (10) GERD (gastroesophageal reflux disease): Chronic. Stable. - Continue PPI (11) Hx of migraines: Patient with episodic migraines. Well-controlled. - Continue topiramate no acute episodes - Patient has used Maxalt in the past with success for migraine relief if needed (12) DVT prophylaxis: Lovenox 40 mg SQ daily Admission and Anticipated Discharge Date Admission Date: November 02, 2019 Subjective patient eating and drinking well had a few loose BM today she says the pain in right leg is 10 out of 10 she cannot get any narcotics, she knows this ammonia up to 119 today told her that we will use Lactulose TID Review of Systems Review of Systems: All systems reviewed & are unremarkable except as noted in Subjective Constitutional: + weakness Respiratory: no cough and no dyspnea Cardiovascular: no chest pain Gastrointestinal: + diarrhea/loose stools; no abdominal pain, no nausea and no vomiting Musculoskeletal: + joint pain (right leg) Physical Exam Constitutional: WD/WN, vitals as above Eyes: PERRL, conjunctivae normal, anicteric sclerae ENMT: external ear and nose normal, oropharynx normal Neck: trachea midline, no thyromegaly Respiratory: normal respiratory effort, lungs clear to auscultation Cardiovascular: RRR, no murmur, no edema Gastrointestinal (Abdomen): normal bowel sounds, soft, nontender, no hepatosplenomegaly Musculoskeletal: no cyanosis or clubbing, extremities motor strength 5/5 Head/Neck/Chest: normocephalic, head atraumatic and neck supple Extremities: + abnormal strength (generalized weakness); no cyanosis, no clubbing and no petechiae Skin: no rashes, warm and dry Neurologic: patellar DTR's 2+ bilat, sensation intact and PERRL, EOMI, accommodation nl, no face palsy, no dysarthria Psychiatric: Orientation: oriented to person, oriented to place and oriented to time; + not alert (sleepy) Lymphatic: no cervical or axillary lymphadenopathy Results & Data Results & Data ([facility]) Vital Signs (Past 12 Hours) Vital Signs Temp Pulse Resp BP Pulse Ox 11/21/19 15:17 36.5 C 85 18 129/77 98 Laboratory Results Laboratory Results - last 24 hr 11/21/19 11/21/19 11/21/19 08:18 11:17 11:50 POC Glucose 106 H 140 H Ammonia 119.0 H 11/21/19 11/21/19 17:13 20:21 POC Glucose 154 H 196 H Ammonia Medications Administered Current Inpatient Medications Acetaminophen (Tylenol) 1,000 mg PO Q8H PRN PRN Reason: pain/fever Stop: 12/01/19 01:51 Last Admin: 11/04/19 08:25 Dose: 1,000 mg Documented by: Acetaminophen (Acetaminophen 500 Mg Tab) 1,000 mg PO Q8 SHEBA Stop: 12/04/19 21:59 Last Admin: 11/21/19 21:49 Dose: 1,000 mg Documented by: Albuterol (Duoneb) 3 ml INH QID PRN PRN Reason: wheezing Stop: 12/01/19 01:51 Last Admin: 11/15/19 09:48 Dose: 3 ml Documented by: Artificial Tears (Artificial Tears) 2 drops OP TID PRN PRN Reason: dry eyes Stop: 12/01/19 02:17 Bisacodyl (Dulcolax) 10 mg [place] DAILY PRN PRN Reason: Constipation Stop: 12/04/19 20:54 Lactulose 200 gm/ Sterile Water 700 ml/ BARCODE IDENTIFIER 1 ea 0 gm [place] Q8H PRN PRN Reason: refusal of po lactulose Stop: 12/10/19 18:14 Dextrose (Dextrose 50%) 25 - 50 ml IV UD PRN; Protocol PRN Reason: Hypoglycemia Protocol Stop: 12/01/19 01:51 Diphenhydramine HCl (Benadryl Capsule) 25 mg PO HS PRN PRN Reason: Sleep Stop: 12/02/19 20:59 Diphenhydramine HCl (Benadryl Capsule) 25 mg PO Q8H PRN PRN Reason: Itching Stop: 12/04/19 20:54 Last Admin: 11/13/19 03:12 Dose: 25 mg Documented by: Docusate Sodium (Docusate Sodium 100 Mg Cap) 100 mg PO BID SHEBA Stop: 12/04/19 20:59 Last Admin: 11/21/19 20:28 Dose: Not Given Documented by: Enoxaparin Sodium (Lovenox) 40 mg SQ QAM SHEBA Stop: 12/05/19 08:59 Last Admin: 11/21/19 09:13 Dose: 40 mg Documented by: Escitalopram Oxalate (Lexapro Tab) 5 mg PO QAM SHEBA Stop: 12/08/19 15:59 Last Admin: 11/21/19 08:57 Dose: 5 mg Documented by: Glucagon (Glucagen) 1 mg SQ UD PRN; Protocol PRN Reason: Hypoglycemia Protocol Stop: 12/01/19 01:51 Glucose (Dex4 Glucose) 4 - 8 tabs PO UD PRN; Protocol PRN Reason: Hypoglycemia Protocol Stop: 12/01/19 01:51 Glucose (Glucose 40%) 15 - 30 gm PO UD PRN; Protocol PRN Reason: Hypoglycemia Protocol Stop: 12/01/19 01:51 Heparin Sodium (Porcine) (Heparin Sod 100 Unit/Ml Flush) 5 ml FLUSH PRN PRN PRN Reason: Flush Stop: 12/01/19 06:50 Last Admin: 11/21/19 18:58 Dose: 5 ml Documented by: Lorazepam (Ativan) 0.5 mg in 1 mls @ 1 mls/min IV Q6H PRN PRN Reason: Agitation Stop: 12/10/19 14:59 Promethazine HCl 25 mg/ Sodium (Chloride) 51 mls @ 202 mls/hr IV Q6H PRN PRN Reason: Nausea And Vomiting Stop: 12/15/19 15:59 Last Infusion: 11/21/19 18:58 Dose: Infused Documented by: Insulin Aspart (Insulin Aspart 100 Units/Ml 3 Ml Pen) 0 units SC ACHS [facility] Stop: 12/01/19 02:29 Last Admin: 11/21/19 20:27 Dose: 6 units Documented by: Insulin Degludec (Tresiba Flextouch U-100) 10 units SQ QAM [facility] Stop: 12/09/19 08:59 Last Admin: 11/21/19 09:19 Dose: 10 units Documented by: Lactulose (Lactulose Syrup 30 Gm/45 Ml Udp) 30 gm PO TID@0800,1200,1700 [facility] Stop: 12/20/19 13:59 Last Admin: 11/21/19 18:03 Dose: Not Given Documented by: Levetiracetam (Keppra) 1,500 mg PO BID [facility] Stop: 12/01/19 08:59 Last Admin: 11/21/19 20:31 Dose: 1,500 mg Documented by: Levothyroxine Sodium (Synthroid) 50 mcg PO DAILYBB [facility] Stop: 12/01/19 06:29 Last Admin: 11/21/19 06:09 Dose: 50 mcg Documented by: Loratadine (Claritin) 10 mg PO QAM [facility] Stop: 12/01/19 08:59 Last Admin: 11/21/19 09:15 Dose: 10 mg Documented by: Magnesium Chloride (Slow-Mag) 128 mg PO QDL [facility] Stop: 12/01/19 11:29 Last Admin: 11/21/19 12:46 Dose: 128 mg Documented by: Magnesium Hydroxide (Milk Of Magnesia) 30 ml PO Q6H PRN PRN Reason: Constipation Stop: 12/04/19 20:54 Last Admin: 11/07/19 17:38 Dose: 30 ml Documented by: Magnesium Oxide (Mag-Ox) 400 mg PO BID [facility] Stop: 12/08/19 08:59 Last Admin: 11/21/19 20:29 Dose: 400 mg Documented by: Melatonin (Melatonin) 15 mg PO HSZ PRN PRN Reason: Sleep Stop: 12/01/19 02:09 Metoclopramide HCl (Reglan) 10 mg IV Q6H PRN PRN Reason: Nausea And Vomiting Stop: 12/04/19 20:54 Last Admin: 11/15/19 03:37 Dose: 10 mg Documented by: Miscellaneous (Carbohydrates For Hypoglycemia) 15 - 30 gm PO UD PRN PRN Reason: Hypoglycemia Protocol Stop: 12/01/19 01:51 Multivitamins (Multivitamin Tab) 1 tab PO QDL [facility] Stop: 12/01/19 11:29 Last Admin: 11/21/19 12:46 Dose: 1 tab Documented by: Naloxone HCl (Narcan) 0.1 mg IV Q5M PRN PRN Reason: Oversedation/Resp Depression Stop: 12/04/19 20:54 Ondansetron HCl (Zofran) 4 mg IV Q6H PRN PRN Reason: Nausea Stop: 12/01/19 01:51 Last Admin: 11/20/19 12:02 Dose: 4 mg Documented by: Ondansetron HCl (Zofran) 4 mg IV Q6H PRN PRN Reason: Nausea And Vomiting Stop: 12/04/19 20:54 Oxcarbazepine (Trileptal) 300 mg PO QAM [facility] Stop: 12/01/19 08:59 Last Admin: 11/21/19 09:12 Dose: 300 mg Documented by: Oxcarbazepine (Trileptal) 600 mg PO [facility] Stop: 12/01/19 20:59 Last Admin: 11/21/19 20:28 Dose: 600 mg Documented by: Pantoprazole Sodium (Protonix) 40 mg PO QAM [facility] Stop: 12/01/19 08:59 Last Admin: 11/21/19 08:58 Dose: 40 mg Documented by: Polyethylene Glycol (Polyethylene (Miralax) 17 Gm Pack) 17 gm PO DAILY [facility] Stop: 12/18/19 16:44 Last Admin: 11/21/19 08:59 Dose: 17 gm Documented by: Promethazine HCl (Phenergan) 25 mg PO Q6H PRN PRN Reason: sedation Stop: 12/01/19 01:51 Last Admin: 11/20/19 10:32 Dose: 25 mg Documented by: Rifaximin (Xifaxan) 550 mg PO BID [facility] Stop: 12/01/19 08:59 Last Admin: 11/21/19 20:29 Dose: 550 mg Documented by: Sennosides (Senokot) 17.2 mg PO [facility] Stop: 12/04/19 20:59 Last Admin: 11/21/19 20:30 Dose: Not Given Documented by: Sodium Chloride ([place] Nasal) 1 sprays NA BID PRN PRN Reason: dry nasal passages Stop: 12/01/19 01:51 Spironolactone (Aldactone) 50 mg PO QAM [facility] Stop: 12/01/19 08:59 Last Admin: 11/21/19 09:13 Dose: 50 mg Documented by: Topiramate (Topamax) 100 mg PO BID [facility] Stop: 12/01/19 08:59 Last Admin: 11/21/19 20:29 Dose: 100 mg Documented by: Vitamin B Complex (Vitamin B Complex) 1 tab PO QDL [facility] Stop: 12/01/19 11:29 Last Admin: 11/21/19 12:45 Dose: 1 tab Documented by: Vitamin D (Vitamin D3) 1,000 units PO QDL [facility] Stop: 12/01/19 11:29 Last Admin: 11/21/19 12:46 Dose: 1,000 units Documented by: Zinc Sulfate (Zinc Sulfate) 220 mg PO QDL [facility] Stop: 12/01/19 11:29 Last Admin: 11/21/19 12:47 Dose: 220 mg Documented by: PG Care Time/CCT Total # of Minutes Spent Total Time Spent with Patient: Total time spent is greater than 50% in coordination of care (as documented) at patient's floor/unit and/or counseling patient: Coding Level of Care Code 75915 Subseq Hosp Care Lvl 1 Diagnoses Hepatic encephalopathy K72.90 Case management patient Closed fracture of right distal femur S72.401A Liver cirrhosis secondary to STEVE K75.81; K74.60 Seizure disorder G40.909 Diabetes E11.69; Z79.4 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 complication status: with other specified complication 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 rn long term care insulin use: with rn long term care use 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 type: type 2 Severe persistent asthma J45.50 Asthma complication type: uncomplicated Major depressive disorder with psychotic features F32.3 Blanca's thyroiditis E06.3 GERD (gastroesophageal reflux disease) K21.9 Esophagitis presence: esophagitis presence not specified Hx of migraines Z86.69 DVT prophylaxis Z29.9 (1) Diabetes 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 complication status: with other specified complication 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 rn long term care insulin use: with rn long term care use 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 type: type 2 Qualified Code(s): E11.69 - Type 2 diabetes mellitus with other specified complication; Z79.4 - terminologist (current) use of insulin (2) Severe persistent asthma Asthma complication type: uncomplicated Qualified Code(s): J45.50 - Severe persistent asthma, uncomplicated (3) GERD (gastroesophageal reflux disease) Esophagitis presence: esophagitis presence not specified Qualified Code(s): K21.9 - Gastro-esophageal reflux disease without esophagitis
[2019-11-22] MEDS: LEVOTHYROXINE SODIUM 50 MCG TABLET PO SCH (05:06)
[2019-11-22] MEDS: ACETAMINOPHEN 500 MG TAB PO SCH ×3 (05:06→21:22)
[2019-11-22] MEDS: HEPARIN 100 UNIT/ML 5ML FLUSH FLUSH PRN (05:49)
[2019-11-22 06:05] LABS: Hematocrit (blood only) 27.6 % (37-47); Hemoglobin 9.5 g/dL (12.0-16.0); Mean Corpuscular Hemoglobin 35.1 pg (25-34); Mean Corpuscular Hgb Conc 34.4 g/dL (32-36); Mean Corpuscular Volume 101.8 fL (80-100); Mean Platelet Volume 8.8 fL (7.4-10.4); Platelet Count 158 K/uL (130-400); RDW Coefficient of Variation 19.3 % (11.5-14.5); RDW Standard Deviation 71.5 fL (36.4-46.3); Red Blood Count 2.71 M/uL (4.2-5.4); White Blood Count 2.61 K/uL (4.8-10.8)
[2019-11-22 06:39] LABS: BUN Creatinine Ratio 10.9 (10-20); Calcium 7.2 mg/dl (8.5-10.1); Est GFR (Non-African American) 119.9; Potassium 3.7 mmol/L (3.5-5.1)
[2019-11-22] MEDS: ENOXAPARIN INJ 40 MG/0.4 ML SYR SQ SCH (09:04)
[2019-11-22] MEDS: OXcarbazepine 150 MG TABLET PO SCH ×2 (09:06→21:15)
[2019-11-22] MEDS: ESCITALOPRAM OXALATE 10 MG TAB PO SCH (09:06)
[2019-11-22] MEDS: PANTOprazole 40 MG TAB PO SCH (09:06)
[2019-11-22] MEDS: RIFAXIMIN 550 MG TABLET PO SCH ×2 (09:06→21:17)
[2019-11-22] MEDS: TOPIRAMATE 100 MG TAB PO SCH ×2 (09:07→21:14)
[2019-11-22] MEDS: LORATADINE 10 MG TAB PO SCH (09:07)
[2019-11-22] MEDS: SPIRONOLACTONE 25 MG TAB PO SCH (09:07)
[2019-11-22] MEDS: levETIRAcetam 500 MG TAB PO SCH ×2 (09:07→21:16)
[2019-11-22] MEDS: LACTULOSE SYRUP 30 GM/45 ML UDP PO SCH ×3 (09:08→18:15)
[2019-11-22] MEDS: MAGNESIUM OXIDE 400 MG TAB PO SCH ×2 (09:08→21:19)
[2019-11-22] MEDS: DOCUSATE SODIUM 100 MG CAP PO SCH ×2 (09:08→21:12)
[2019-11-22] MEDS: POLYETHYLENE (MIRALAX) 17 GM PACK PO SCH (09:08)
[2019-11-22] MEDS: INSULIN ASPART 100 UNITS/ML 3 ML PEN SC SCH ×4 (09:16→21:12)
[2019-11-22] MEDS: INSULIN DEGLUDEC 100 UNITS/ML SQ SCH (09:18)
[2019-11-22] MEDS: MAGNESIUM CHLORIDE 64MG DELAYED REL TAB PO SCH (12:19)
[2019-11-22] MEDS: VITAMIN B COMPLEX TAB PO SCH (12:19)
[2019-11-22] MEDS: ZINC SULFATE 220 MG CAPSULE PO SCH (12:20)
[2019-11-22] MEDS: CHOLECALCIFEROL 1,000 UNITS 25 MCG TAB PO SCH (12:20)
[2019-11-22] MEDS: MULTIVITAMIN TAB PO SCH (12:20)
--- NOTE | 2019-11-22 17:11 | Hospitalist Progress Note ---
Date of Service November 22, 2019 Assessment & Plan (1) Hepatic encephalopathy: Patient had an episode of hepatic encephalopathy in the evening of 11/10/2019. Acute hepatic encephalopathy causing AMS and unresponsiveness treated with lactulose and head CT. She had the decreased responsiveness and her ammonia was checked and found to be elevated from her baseline of the 70-80 range. Patient had persistent bowel movements and did have her lactulose increased. she remains in her normal self, her encephalopathy is resolved her lactulose is restarted ammonia trended up recently but MS remains normal, normal NH3 for her is 70-80 range--> would not repeat unless has AMS continue Rifaximin -continue Lactulose to TID,although she declines at times based on # of stools had a decreased responsiveness episode 11/15, but this happens all the time according to her (2) Case management patient: Continue waiting on case management to continue to pursue the target process for placement for rehab and to a fpc facility for her spiral femur fracture status post surgical repair which will likely take greater than 30 days for rehab as she is 6 weeks nonweightbearing. still awaiting paper work to be completed - hopeful for discharge to [facility] when this is completed (3) Closed fracture of right distal femur: Periprosthetic fracture around previous IM nail in right femur, as a result of mechanical fall at home. Right hip x-rays on 11/01 show: "Acute, distracted, and angulated spiral fracture of the distal femoral shaft around the inferior end of the intramedullary nail." - S/p right ORIF with Dr. Thrasher on 11/04/2019. Dressing changed on 11/06 and ortho feel surgical site looking good. Removed jerri at POD#14 - Non-weightbearing right leg x 6-8 weeks. Ortho will get Q2week x-rays to monitor bone bridging to make final determination. - Pain control with non-narcotics, she will say that the pain is a 10 out of 1 0 every day to try to get pain medications - Expected acute blood loss anemia in setting of femoral fracture; received a total of 4 units of PRBCs rogelio-operatively. Hgb is stable at 10 on 11/17, drain removed by orthopedics. - PT/OT/CM for placement. Target process required. Psychological evaluation performed 11/08/2019 (4) Liver cirrhosis secondary to STEVE: Patient with liver cirrhosis secondary to STEVE, portal hypertension. Patient follows with gastroenterology, last seen by Dr. Toledo on 04/20/19. HCV screening has been completed and is negative. AFP on 03/09/2019 = 2.6. INR = 1.4 - Continue lactulose & rifaximin - Continue zinc supplementation 50 mg daily - Continue Aldactone for lower extremity edema and cirrhosis - Low sodium diet as tolerated - Avoid hepatotoxic agents (5) Seizure disorder: Patient with history of seizure. She follows with neurology, last seen on 04/02/19. EEG completed in May 2018 revealed a generalized spike and slow wave abnormality consistent with an underlying generalized seizure disorder. Patient had an MRI brain completed in October 2017 which was unremarkable. Patient failed VNS placement in the past, device was explanted. Presently on topiramate, Trileptal and Keppra. She was recently seen in the ER on 05/17/19 with report of seizures x 4 at home with a 5th seizure witnessed in triage - shaking her head and upper extremities. After consultation with Neurology, her oxcarbazepine was increased to 600mg po BID. - Continue topiramate 100 mg p.o. twice daily which is likely contributing to her metabolic acidosis - Continue Trileptal 300 mg p.o. every morning and 600 mg p.o. nightly ( confirms this is current dosing) - Continue Keppra 1500 mg p.o. twice daily no episodes all week (6) Diabetes: Last hemoglobin A1c=4.6% on 10/20/19. Patient follows with End ocrinology/Diabetes education. - Continue Tresiba 10 units subcu every morning - Sliding scale insulin, was tightened by pt request (7) Severe persistent asthma: History of persistent asthma. She has seen Pulmonary as well as Allergy/Immunology in the past. Spirometry performed on 04/23/19 with FVC=1.37, 38% predicted. FEV1=1.18, 40% predicted and FEV1/FVC=86%. Suggestive of restrictive process vs obstruction with air trapping. Study limited. Formal PFTs ordered, not yet completed. -Patient is stable at this time - AdánoNelynn PRN (8) Major depressive disorder with psychotic features: Chronic. Stable. She was evaluated by inpatient psychiatry for targeting process -continue Lexapro started on 11/07 (9) Blanca's thyroiditis: TSH = 1.56. - Continue Synthroid (10) GERD (gastroesophageal reflux disease): Chronic. Stable. - Continue PPI (11) Hx of migraines: Patient with episodic migraines. Well-controlled. - Continue topiramate no acute episodes - Patient has used Maxalt in the past with success for migraine relief if needed (12) DVT prophylaxis: Lovenox 40 mg SQ daily Dispo-medically stable for discharge, awaiting placement Admission and Anticipated Discharge Date Admission Date: November 02, 2019 Subjective Pt requesting that she have albuterol nebs ordered as she states "I NEED them" and also requesting phenergan for daily use. I reviewed her med list and she already has both po and IV phenergan ordered prn so I stopped the IV form. SHe also already had labuterol nebs ordered. Reports having 4 loose BMs this AM already and refused her lactulose. RN reports only 1 BM she knows of prior to shift. at bedside. Review of Systems Review of Systems: All systems reviewed & are unremarkable except as noted in HPI & below reports chronic nausea Physical Exam Constitutional: WD/WN, vitals as above Eyes: + anicteric sclerae Neck: trachea midline, no thyromegaly Respiratory: normal respiratory effort, lungs clear to auscultation Cardiovascular: RRR, no murmur, no edema Chest (Breasts): Chest: normal inspection of chest Gastrointestinal (Abdomen): normal bowel sounds, soft, nontender, no hepatosplenomegaly Musculoskeletal: Extremities: extremities normal to inspection; no cyanosis and no clubbing Skin: no rashes, warm and dry Neurologic: moves all extremities and awake; no focal motor deficits Psychiatric: Orientation: alert, oriented to person, oriented to place, oriented to time and cooperative Lymphatic: no lymphedema Results & Data Results & Data ([facility]) Vital Signs (Past 12 Hours) Vital Signs Temp Pulse Resp BP Pulse Ox 11/22/19 07:15 36.5 C 75 18 131/73 99 Laboratory Results 11/22/19 11/22/19 11/22/19 Range/Units 20:32 17:18 11:56 WBC (4.8-10.8) K/uL RBC (4.2-5.4) M/uL Hgb (12.0-16.0) g/dL Hct (37-47) % MCV (80-100) fL MCH (25-34) pg MCHC (32-36) g/dL RDW Std Deviation (36.4-46.3) fL RDW Coeff of Irina (11.5-14.5) % Plt Count (130-400) K/uL MPV (7.4-10.4) fL Sodium (136-145) mmol/L Potassium (3.5-5.1) mmol/L Chloride (98-107) mmol/L Carbon Dioxide (21-32) mmol/L Anion Gap (3-11) BUN (7-18) mg/dl Creatinine (0.6-1.2) mg/dl Est Cr Clr Drug Dosing ml/min Est GFR ( Amer) Est GFR (Non-Af Amer) BUN/Creatinine Ratio (10-20) Glucose (70-99) mg/dl POC Glucose 148 H 142 H 164 H (70-99) mg/dl Calcium (8.5-10.1) mg/dl Ammonia (11-32) umol/L 11/22/19 11/22/19 11/22/19 Range/Units 07:58 05:52 05:52 WBC (4.8-10.8) K/uL RBC (4.2-5.4) M/uL Hgb (12.0-16.0) g/dL Hct (37-47) % MCV (80-100) fL MCH (25-34) pg MCHC (32-36) g/dL RDW Std Deviation (36.4-46.3) fL RDW Coeff of Irina (11.5-14.5) % Plt Count (130-400) K/uL MPV (7.4-10.4) fL Sodium 141 (136-145) mmol/L Potassium 3.7 (3.5-5.1) mmol/L Chloride 115 H (98-107) mmol/L Carbon Dioxide 20 L (21-32) mmol/L Anion Gap 6.0 (3-11) BUN 4 L (7-18) mg/dl Creatinine 0.39 L (0.6-1.2) mg/dl Est Cr Clr Drug Dosing 188.0 ml/min Est GFR ( Amer) 139.0 Est GFR (Non-Af Amer) 119.9 BUN/Creatinine Ratio 10.9 (10-20) Glucose 104 H (70-99) mg/dl POC Glucose 89 (70-99) mg/dl Calcium 7.2 L (8.5-10.1) mg/dl Ammonia 122.0 H (11-32) umol/L 11/22/19 Range/Units 05:52 WBC 2.61 L (4.8-10.8) K/uL RBC 2.71 L (4.2-5.4) M/uL Hgb 9.5 L (12.0-16.0) g/dL Hct 27.6 L (37-47) % MCV 101.8 H (80-100) fL MCH 35.1 H (25-34) pg MCHC 34.4 (32-36) g/dL RDW Std Deviation 71.5 H (36.4-46.3) fL RDW Coeff of Irina 19.3 H (11.5-14.5) % Plt Count 158 (130-400) K/uL MPV 8.8 (7.4-10.4) fL Sodium (136-145) mmol/L Potassium (3.5-5.1) mmol/L Chloride (98-107) mmol/L Carbon Dioxide (21-32) mmol/L Anion Gap (3-11) BUN (7-18) mg/dl Creatinine (0.6-1.2) mg/dl Est Cr Clr Drug Dosing ml/min Est GFR ( Amer) Est GFR (Non-Af Amer) BUN/Creatinine Ratio (10-20) Glucose (70-99) mg/dl POC Glucose (70-99) mg/dl Calcium (8.5-10.1) mg/dl Ammonia (11-32) umol/L PG Care Time/CCT Total # of Minutes Spent Total Time Spent with Patient: Total time spent is greater than 50% in coordination of care (as documented) at patient's floor/unit and/or counseling patient: Coding Level of Care Code 51232 Subseq Hosp Care Lvl 2 Diagnoses Hepatic encephalopathy K72.90 Case management patient Closed fracture of right distal femur S72.401A Liver cirrhosis secondary to STEVE K75.81; K74.60 Seizure disorder G40.909 Diabetes E11.69; Z79.4 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 complication status: with other specified complication 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 terminal supervisor insulin use: with terminal supervisor use 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 type: type 2 Severe persistent asthma J45.50 Asthma complication type: uncomplicated Major depressive disorder with psychotic features F32.3 Blanca's thyroiditis E06.3 GERD (gastroesophageal reflux disease) K21.9 Esophagitis presence: esophagitis presence not specified Hx of migraines Z86.69 DVT prophylaxis Z29.9 (1) Diabetes 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 complication status: with other specified complication 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 senior living insulin use: with terminal supervisor use 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 type: type 2 Qualified Code(s): E11.69 - Type 2 diabetes mellitus with other specified complication; Z79.4 - intermodal customer service (current) use of insulin (2) Severe persistent asthma Asthma complication type: uncomplicated Qualified Code(s): J45.50 - Severe persistent asthma, uncomplicated (3) GERD (gastroesophageal reflux disease) Esophagitis presence: esophagitis presence not specified Qualified Code(s): K21.9 - Gastro-esophageal reflux disease without esophagitis
[2019-11-22] MEDS: ALBUT/IPRATROP 3MG/0.5MG NEB 3 ML VIAL INH PRN (20:49)
[2019-11-22] MEDS: SENNA 8.6 MG TAB PO SCH (21:13)
[2019-11-23] MEDS: LEVOTHYROXINE SODIUM 50 MCG TABLET PO SCH (04:53)
[2019-11-23] MEDS: ACETAMINOPHEN 500 MG TAB PO SCH ×2 (04:53→14:26)
[2019-11-23] MEDS: PROMETHAZINE HCL 25 MG TAB PO PRN (09:12)
[2019-11-23] MEDS: INSULIN DEGLUDEC 100 UNITS/ML SQ SCH (09:13)
[2019-11-23] MEDS: LORATADINE 10 MG TAB PO SCH (09:15)
[2019-11-23] MEDS: ESCITALOPRAM OXALATE 10 MG TAB PO SCH (09:15)
[2019-11-23] MEDS: INSULIN ASPART 100 UNITS/ML 3 ML PEN SC SCH ×4 (09:15→22:05)
[2019-11-23] MEDS: ENOXAPARIN INJ 40 MG/0.4 ML SYR SQ SCH ×2 (09:15→12:51)
[2019-11-23] MEDS: LACTULOSE SYRUP 30 GM/45 ML UDP PO SCH ×3 (09:15→18:41)
[2019-11-23] MEDS: SPIRONOLACTONE 25 MG TAB PO SCH ×2 (09:15→12:49)
[2019-11-23] MEDS: DOCUSATE SODIUM 100 MG CAP PO SCH (09:15)
[2019-11-23] MEDS: levETIRAcetam 500 MG TAB PO SCH ×3 (09:15→21:54)
[2019-11-23] MEDS: PANTOprazole 40 MG TAB PO SCH (09:16)
[2019-11-23] MEDS: POLYETHYLENE (MIRALAX) 17 GM PACK PO SCH (09:16)
[2019-11-23] MEDS: MAGNESIUM OXIDE 400 MG TAB PO SCH ×2 (09:16→21:57)
[2019-11-23] MEDS: TOPIRAMATE 100 MG TAB PO SCH ×3 (09:16→21:57)
[2019-11-23] MEDS: OXcarbazepine 150 MG TABLET PO SCH ×3 (09:16→21:57)
[2019-11-23] MEDS: RIFAXIMIN 550 MG TABLET PO SCH ×3 (09:16→21:57)
[2019-11-23] MEDS: VITAMIN B COMPLEX TAB PO SCH (12:41)
[2019-11-23] MEDS: MAGNESIUM CHLORIDE 64MG DELAYED REL TAB PO SCH (12:41)
[2019-11-23] MEDS: MULTIVITAMIN TAB PO SCH (12:41)
[2019-11-23] MEDS: ZINC SULFATE 220 MG CAPSULE PO SCH (12:42)
[2019-11-23] MEDS: CHOLECALCIFEROL 1,000 UNITS 25 MCG TAB PO SCH (12:42)
--- NOTE | 2019-11-23 18:36 | Hospitalist Progress Note ---
Date of Service November 23, 2019 Assessment & Plan (1) Hepatic encephalopathy: Patient had an episode of hepatic encephalopathy in the evening of 11/10/2019. Acute hepatic encephalopathy causing AMS and unresponsiveness treated with lactulose and head CT. She had the decreased responsiveness and her ammonia was checked and found to be elevated from her baseline of the 70-80 range. Patient had persistent bowel movements and did have her lactulose increased. she remains in her normal self, her encephalopathy is resolved and her lactulose is restarted, however she does refuse it at times as she has been having numerous liquid bowel movements ammonia trended up recently but MS remains normal, normal NH3 for her is 70-80 range--> would not repeat unless has AMS continue Rifaximin -continue Lactulose which is ordered 3 times daily, however can titrate to 3-4 bowel movements daily -DC MiraLAX, docusate, Senokot had a decreased responsiveness episode 11/15, but this happens all the time according to her (2) Case management patient: Continue waiting on case management to continue to pursue the target process for placement for rehab and to a [facility] facility for her spiral femur fracture status post surgical repair which will likely take greater than 30 days for rehab as she is 6 weeks nonweightbearing. Still awaiting process to be approved - hopeful for discharge to [facility] when this is completed (3) Closed fracture of right distal femur: Periprosthetic fracture around previous IM nail in right femur, as a result of mechanical fall at home. Right hip x-rays on 11/01 show: "Acute, distracted, and angulated spiral fracture of the distal femoral shaft around the inferior end of the intramedullary nail." - S/p right ORIF with Dr. Thrasher on 11/04/2019. Dressing changed on 11/06 and ortho feel surgical site looking good. Removed jerri at POD#14 - Non-weightbearing right leg x 6-8 weeks. Ortho will get Q2week x-rays to monitor bone bridging to make final determination. - Pain control with non-narcotics, she will say that the pain is a 10 out of 10 every day to try to get pain medications - Expected acute blood loss anemia in setting of femoral fracture; received a total of 5 units of PRBCs rogelio-operatively. Hgb is stable at 10 on 11/17, drain removed by orthopedics. - PT/OT/CM for placement. Target process required. Psychological evaluation performed 11/08/2019 (4) Liver cirrhosis secondary to STEVE: Patient with liver cirrhosis secondary to STEVE, portal hypertension. Patient follows with gastroenterology, last seen by Dr. Toledo on 04/20/19. HCV screening has been completed and is negative. AFP on 03/09/2019 = 2.6. INR = 1.4 - Continue lactulose & rifaximin - Continue zinc supplementation 50 mg daily - Continue Aldactone for lower extremity edema and cirrhosis - Low sodium diet as tolerated - Avoid hepatotoxic agents-we will decrease dose of Tylenol to 650 mg p.o. every 8 hours (5) Seizure disorder: Patient with history of seizure. She follows with neurology, last seen on 04/02/19. EEG completed in May 2018 revealed a generalized spike and slow wave abnormality consistent with an underlying generalized seizure disorder. Patient had an MRI brain completed in October 2017 which was unremarkable. Patient failed VNS placement in the past, device was explanted. Presently on topiramate, Trileptal and Keppra. She was recently seen in the ER on 05/17/19 with report of seizures x 4 at home with a 5th seizure witnessed in triage - shaking her head and upper extremities. After consultation with Neurology, her oxcarbazepine was increased to 600mg po BID. - Continue topiramate 100 mg p.o. twice daily which is likely contributing to her metabolic acidosis - Continue Trileptal 300 mg p.o. every morning and 600 mg p.o. nightly ( confirms this is current dosing) - Continue Keppra 1500 mg p.o. twice daily no episodes all week (6) Diabetes: Last hemoglobin A1c=4.6% on 10/20/19. Patient follows with Endocrinology/Diabetes education. - Continue Tresiba 10 units subcu every morning - Sliding scale insulin, was tightened by pt request (7) Severe persistent asthma: History of persistent asthma. She has seen Pulmonary as well as Allergy/Immunology in the past. Spirometry performed on 04/23/19 with FVC=1.37, 38% predicted. FEV1=1.18, 40% predicted and FEV1/FVC=86%. Suggestive of restrictive process vs obstruction with air trapping. Study limited. Formal PFTs ordered, not yet completed. -Patient is stable at this time, no wheezing on examination, not hypoxic, not short of breath - DuoNebs PRN (8) Major depressive disorder with psychotic features: Chronic. Stable. 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 - Continue Synthroid 50 mcg daily (10) GERD (gastroesophageal reflux disease): Chronic. Stable. - Continue PPI (11) Hx of migraines: Patient with episodic migraines. Well-controlled. - Continue topiramate no acute episodes - Patient has used Maxalt in the past with success for migraine relief if needed (12) DVT prophylaxis: Lovenox 40 mg SQ daily Dispo-medically stable for discharge, awaiting placement/approval of target process Admission and Anticipated Discharge Date Admission Date: November 02, 2019 Subjective Patient is requesting that IV Phenergan be added back on and we negotiated that it would just be 1 dose allowed per day. She is eating. She is having numerous liquid bowel movements and is incontinent. She is requesting a Cuello catheter and a rectal tube-we decided that we would avoid these, but I would cut down on her bowel regimen. Review of Systems Review of Systems: All systems reviewed & are unremarkable except as noted in HPI & below Physical Exam Constitutional: WD/WN, vitals as above Eyes: + anicteric sclerae Neck: trachea midline, no thyromegaly Respiratory: normal respiratory effort, lungs clear to auscultation Cardiovascular: RRR, no murmur, no edema Chest (Breasts): Chest: normal inspection of chest Gastrointestinal (Abdomen): normal bowel sounds, soft, nontender, no hepatosplenomegaly Musculoskeletal: Extremities: extremities normal to inspection; no cyanosis and no clubbing Skin: no rashes, warm and dry Neurologic: moves all extremities and awake; no focal motor deficits Psychiatric: A+Ox3, euthymic affect Orientation: cooperative Lymphatic: no lymphedema Results & Data Results & Data ([facility]) Vital Signs (Past 12 Hours) Vital Signs Temp Pulse Pulse Resp BP Pulse Ox 11/23/19 16:24 36.8 C 86 16 120/69 98 11/23/19 07:30 36.7 C 75 16 110/69 96 Laboratory Results 11/23/19 11/23/19 11/22/19 Range/Units 17:21 08:30 20:32 POC Glucose 125 H 139 H 148 H (70-99) mg/dl PG Care Time/CCT Total # of Minutes Spent Total Time Spent with Patient: Total time spent is greater than 50% in coordination of care (as documented) at patient's floor/unit and/or counseling patient: Coding Level of Care Code 11753 Subseq Hosp Care Lvl 2 Diagnoses Hepatic encephalopathy K72.90 Case management patient Closed fracture of right distal femur S72.401A Liver cirrhosis secondary to STEVE K75.81; K74.60 Seizure disorder G40.909 Diabetes E11.69; Z79.4 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 complication status: with other specified complication 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 assisted insulin use: with assisted use 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 type: type 2 Severe persistent asthma J45.50 Asthma complication type: uncomplicated Major depressive disorder with psychotic features F32.3 Blanca's thyroiditis E06.3 GERD (gastroesophageal reflux disease) K21.9 Esophagitis presence: esophagitis presence not specified Hx of migraines Z86.69 DVT prophylaxis Z29.9 (1) Diabetes 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 complication status: with other specified complication 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 assisted insulin use: with superintendent marine oil terminal use 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 type: type 2 Qualified Code(s): E11.69 - Type 2 diabetes mellitus with other specified complication; Z79.4 - snf (current) use of insulin (2) Severe persistent asthma Asthma complication type: uncomplicated Qualified Code(s): J45.50 - Severe persistent asthma, uncomplicated (3) GERD (gastroesophageal reflux disease) Esophagitis presence: esophagitis presence not specified Qualified Code(s): K21.9 - Gastro-esophageal reflux disease without esophagitis
[2019-11-23] MEDS: ACETAMINOPHEN 325 MG TAB PO SCH (21:58)
[2019-11-23] MEDS: PROMETHAZINE HCL 25 MG in SODIUM CHLORIDE 0.9% 50 ML IV PRN (22:02)
[2019-11-23] MEDS: HEPARIN 100 UNIT/ML 5ML FLUSH FLUSH PRN (22:27)
[2019-11-24] MEDS: ALBUT/IPRATROP 3MG/0.5MG NEB 3 ML VIAL INH PRN (00:14)
[2019-11-24] MEDS: ACETAMINOPHEN 325 MG TAB PO SCH ×3 (06:12→21:46)
[2019-11-24] MEDS: LEVOTHYROXINE SODIUM 50 MCG TABLET PO SCH (06:13)
[2019-11-24] MEDS: SPIRONOLACTONE 25 MG TAB PO SCH (08:15)
[2019-11-24] MEDS: ESCITALOPRAM OXALATE 10 MG TAB PO SCH (08:15)
[2019-11-24] MEDS: MAGNESIUM OXIDE 400 MG TAB PO SCH ×2 (08:16→21:44)
[2019-11-24] MEDS: TOPIRAMATE 100 MG TAB PO SCH ×2 (08:17→21:45)
[2019-11-24] MEDS: RIFAXIMIN 550 MG TABLET PO SCH ×2 (08:17→21:46)
[2019-11-24] MEDS: levETIRAcetam 500 MG TAB PO SCH ×2 (08:18→21:46)
[2019-11-24] MEDS: LORATADINE 10 MG TAB PO SCH (08:20)
[2019-11-24] MEDS: PANTOprazole 40 MG TAB PO SCH (08:21)
[2019-11-24] MEDS: OXcarbazepine 150 MG TABLET PO SCH ×2 (08:22→21:45)
[2019-11-24] MEDS: ENOXAPARIN INJ 40 MG/0.4 ML SYR SQ SCH (08:23)
[2019-11-24] MEDS: LACTULOSE SYRUP 30 GM/45 ML UDP PO SCH ×3 (08:25→17:57)
[2019-11-24] MEDS: INSULIN DEGLUDEC 100 UNITS/ML SQ SCH (08:30)
[2019-11-24] MEDS: HEPARIN 100 UNIT/ML 5ML FLUSH FLUSH PRN ×2 (08:50→19:42)
[2019-11-24] MEDS: INSULIN ASPART 100 UNITS/ML 3 ML PEN SC SCH ×4 (09:31→21:41)
[2019-11-24] MEDS: CHOLECALCIFEROL 1,000 UNITS 25 MCG TAB PO SCH (11:27)
[2019-11-24] MEDS: MULTIVITAMIN TAB PO SCH (11:28)
[2019-11-24] MEDS: MAGNESIUM CHLORIDE 64MG DELAYED REL TAB PO SCH (11:28)
[2019-11-24] MEDS: ZINC SULFATE 220 MG CAPSULE PO SCH (11:29)
[2019-11-24] MEDS: VITAMIN B COMPLEX TAB PO SCH (11:30)
[2019-11-24] MEDS: PROMETHAZINE HCL 25 MG in SODIUM CHLORIDE 0.9% 50 ML IV PRN ×2 (12:46→19:23)
--- NOTE | 2019-11-24 17:45 | Hospitalist Progress Note ---
Date of Service November 24, 2019 Assessment & Plan (1) Hepatic encephalopathy: Patient had an episode of hepatic encephalopathy in the evening of 11/10/2019. Acute hepatic encephalopathy causing AMS and unresponsiveness treated with lactulose and head CT. She had the decreased responsiveness and her ammonia was checked and found to be elevated from her baseline of the 70-80 range. Patient had persistent bowel movements and did have her lactulose increased. she remains in her normal self, her encephalopathy is resolved and her lactulose is restarted, however she does refuse it at times as she has been having numerous liquid bowel movements ammonia trended up recently but MS remains normal, normal NH3 for her is 70-80 range--> would not repeat unless has AMS continue Rifaximin -continue Lactulose and decrease to once daily as continues to have numerous loose stools daily, however can titrate to 3-4 bowel movements daily -DCd MiraLAX, docusate, Senokot had a decreased responsiveness episode 11/15, but this happens all the time according to her (2) Case management patient: Continue waiting on case management to continue to pursue the target process for placement for rehab and to a assisted facility for her spiral femur fracture status post surgical repair which will likely take greater than 30 days for rehab as she is 6 weeks nonweightbearing. Still awaiting process to be approved - hopeful for discharge to [facility] when this is completed (3) Closed fracture of right distal femur: Periprosthetic fracture around previous IM nail in right femur, as a result of mechanical fall at home. Right hip x-rays on 11/01 show: "Acute, distracted, and angulated spiral fracture of the distal femoral shaft around the inferior end of the intramedullary nail." - S/p right ORIF with Dr. Thrasher on 11/04/2019. Dressing changed on 11/06 and ortho feel surgical site looking good. Removed jerri at POD#14 - Non-weightbearing right leg x 6-8 weeks. Ortho will get Q2week x-rays to monitor bone bridging to make final determination. - Pain control with non-narcotics, she will say that the pain is a 10 out of 10 every day to try to get pain medications - Expected acute blood loss anemia in setting of femoral fracture; received a total of 5 units of PRBCs rogelio-operatively. Hgb is stable at 10 on 11/17, drain removed by orthopedics. - PT/OT/CM for placement. Target process required. Psychological evaluation performed 11/08/2019 (4) Liver cirrhosis secondary to STEVE: Patient with liver cirrhosis secondary to STEVE, portal hypertension. Patient follows with gastroenterology, last seen by Dr. Toledo on 04/20/19. HCV screening has been completed and is negative. AFP on 03/09/2019 = 2.6. INR = 1.4 - Continue lactulose & rifaximin - Continue zinc supplementation 50 mg daily - Continue Aldactone for lower extremity edema and cirrhosis - Low sodium diet as tolerated - Avoid hepatotoxic agents-decreased dose of Tylenol to 650 mg p.o. every 8 hours (5) Seizure disorder: Patient with history of seizure. She follows with neurology, last seen on 04/02/19. EEG completed in May 2018 revealed a generalized spike and slow wave abnormality consistent with an underlying generalized seizure disorder. Patient had an MRI brain completed in October 2017 which was unremarkable. Patient failed VNS placement in the past, device was explanted. Presently on topiramate, Trileptal and Keppra. She was recently seen in the ER on 05/17/19 with report of seizures x 4 at home with a 5th seizure witnessed in triage - shaking her head and upper extremities. After consultation with Neurology, her oxcarbazepine was increased to 600mg po BID. - Continue topiramate 100 mg p.o. twice daily which is likely contributing to her metabolic acidosis - Continue Trileptal 300 mg p.o. every morning and 600 mg p.o. nightly ( confirms this is current dosing) - Continue Keppra 1500 mg p.o. twice daily no episodes all week (6) Diabetes: Last hemoglobin A1c=4.6% on 10/20/19. Patient follows with Endocrinology/Diabetes education. - Continue Tresiba 10 units subcu every morning - Sliding scale insulin, was tightened by pt request (7) Severe persistent asthma: History of persistent asthma. She has seen Pulmonary as well as Allergy/Immunology in the past. Spirometry performed on 04/23/19 with FVC=1.37, 38% predicted. FEV1=1.18, 40% predicted and FEV1/FVC=86%. Suggestive of restrictive process vs obstruction with air trapping. Study limited. Formal PFTs ordered, not yet completed. -Patient is stable at this time, no wheezing on examination, not hypoxic, not short of breath - DuoNebs PRN (8) Major depressive disorder with psychotic features: Chronic. Stable. 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 - Continue Synthroid 50 mcg daily (10) GERD (gastroesophageal reflux disease): Chronic. Stable. - Continue PPI (11) Hx of migraines: Patient with episodic migraines. Well-controlled. - Continue topiramate no acute episodes - Patient has used Maxalt in the past with success for migraine relief if needed (12) DVT prophylaxis: Lovenox 40 mg SQ daily Dispo-medically stable for discharge, awaiting placement/approval of target process Admission and Anticipated Discharge Date Admission Date: November 02, 2019 Subjective Pt reports 6 loose stools today and would like her lactulose decreased as she continues to refuse it anyway. Reports she took one dose of IV phenergan today. Denies SOB. Is anxious for discharge Review of Systems Review of Systems: All systems reviewed & are unremarkable except as noted in HPI & below Physical Exam Constitutional: WD/WN, vitals as above Eyes: + anicteric sclerae Neck: trachea midline, no thyromegaly Respiratory: normal respiratory effort, lungs clear to auscultation Cardiovascular: RRR, no murmur, no edema Chest (Breasts): Chest: normal inspection of chest Gastrointestinal (Abdomen): normal bowel sounds, soft, nontender, no hepatosplenomegaly Musculoskeletal: Extremities: extremities normal to inspection; no cyanosis and no clubbing Skin: no rashes, warm and dry Neurologic: moves all extremities and awake; no focal motor deficits Psychiatric: A+Ox3, euthymic affect Orientation: cooperative Lymphatic: no lymphedema Results & Data Results & Data ([facility]) Vital Signs (Past 12 Hours) Vital Signs Temp Pulse Resp BP Pulse Ox 11/24/19 15:28 36.9 C 82 17 119/70 99 11/24/19 07:04 36.7 C 83 18 137/77 98 Laboratory Results 11/24/19 11/24/19 11/24/19 Range/Units 17:20 11:44 08:20 POC Glucose 157 H 148 H 108 H (70-99) mg/dl 11/23/19 Range/Units 20:54 POC Glucose 190 H (70-99) mg/dl PG Care Time/CCT Total # of Minutes Spent Total Time Spent with Patient: Total time spent is greater than 50% in coordination of care (as documented) at patient's floor/unit and/or counseling patient: Coding Level of Care Code 14012 Subseq Hosp Care Lvl 1 Diagnoses Hepatic encephalopathy K72.90 Case management patient Closed fracture of right distal femur S72.401A Liver cirrhosis secondary to STEVE K75.81; K74.60 Seizure disorder G40.909 Diabetes E11.69; Z79.4 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 complication status: with other specified complication 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 monitor tech insulin use: with monitor tech use 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 type: type 2 Severe persistent asthma J45.50 Asthma complication type: uncomplicated Major depressive disorder with psychotic features F32.3 Blanca's thyroiditis E06.3 GERD (gastroesophageal reflux disease) K21.9 Esophagitis presence: esophagitis presence not specified Hx of migraines Z86.69 DVT prophylaxis Z29.9 (1) Diabetes 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 complication status: with other specified complication Diabetes mellitus monitor tech insulin use: with custodial use Diabetes mellitus type: type 2 Qualified Code(s): E11.69 - Type 2 diabetes mellitus with other specified complication; Z79.4 - FPC (current) use of insulin (2) Severe persistent asthma Asthma complication type: uncomplicated Qualified Code(s): J45.50 - Severe persistent asthma, uncomplicated (3) GERD (gastroesophageal reflux disease) Esophagitis presence: esophagitis presence not specified Qualified Code(s): K21.9 - Gastro-esophageal reflux disease without esophagitis
[2019-11-25] MEDS: ACETAMINOPHEN 325 MG TAB PO SCH ×3 (06:06→21:13)
[2019-11-25] MEDS: LEVOTHYROXINE SODIUM 50 MCG TABLET PO SCH (06:06)
[2019-11-25] MEDS: ONDANSETRON INJ 2 MG/ML 2 ML VIAL IV PRN (08:05)
[2019-11-25] MEDS: HEPARIN 100 UNIT/ML 5ML FLUSH FLUSH PRN ×2 (08:05→21:10)
[2019-11-25] MEDS: TOPIRAMATE 100 MG TAB PO SCH ×2 (08:17→21:13)
[2019-11-25] MEDS: OXcarbazepine 150 MG TABLET PO SCH ×2 (08:17→21:14)
[2019-11-25] MEDS: MAGNESIUM OXIDE 400 MG TAB PO SCH ×2 (08:17→21:15)
[2019-11-25] MEDS: ENOXAPARIN INJ 40 MG/0.4 ML SYR SQ SCH (08:17)
[2019-11-25] MEDS: ESCITALOPRAM OXALATE 10 MG TAB PO SCH (08:17)
[2019-11-25] MEDS: PANTOprazole 40 MG TAB PO SCH (08:17)
[2019-11-25] MEDS: LORATADINE 10 MG TAB PO SCH (08:17)
[2019-11-25] MEDS: SPIRONOLACTONE 25 MG TAB PO SCH (08:17)
[2019-11-25] MEDS: levETIRAcetam 500 MG TAB PO SCH ×2 (08:17→21:16)
[2019-11-25] MEDS: RIFAXIMIN 550 MG TABLET PO SCH ×2 (08:18→21:16)
[2019-11-25] MEDS: INSULIN ASPART 100 UNITS/ML 3 ML PEN SC SCH ×4 (10:09→21:13)
[2019-11-25] MEDS: INSULIN DEGLUDEC 100 UNITS/ML SQ SCH (10:10)
[2019-11-25] MEDS: LACTULOSE SYRUP 30 GM/45 ML UDP PO SCH (11:58)
[2019-11-25] MEDS: MULTIVITAMIN TAB PO SCH (12:00)
[2019-11-25] MEDS: CHOLECALCIFEROL 1,000 UNITS 25 MCG TAB PO SCH (12:00)
[2019-11-25] MEDS: MAGNESIUM CHLORIDE 64MG DELAYED REL TAB PO SCH (12:00)
[2019-11-25] MEDS: VITAMIN B COMPLEX TAB PO SCH (12:00)
[2019-11-25] MEDS: ZINC SULFATE 220 MG CAPSULE PO SCH (12:01)
--- NOTE | 2019-11-25 15:24 | Hospitalist Progress Note ---
Date of Service November 25, 2019 Assessment & Plan (1) Closed fracture of right distal femur: Periprosthetic fracture around previous IM nail in right femur, as a result of mechanical fall at home. Right hip/femur x-rays on 11/01 show: "Acute, distracted, and angulated spiral fracture of the distal femoral shaft around the inferior end of the intramedullary nail." - S/p right ORIF with Dr. Thrasher on 11/04/2019. Dressing changed on 11/06 and ortho feel surgical site looking good. Removed jerri at POD#14 - Non-weightbearing right leg x 6-8 weeks. Ortho will get Q2week x-rays to monitor bone bridging to make final determination. - Pain control with non-narcotics, she will say that the pain is a 10 out of 10 every day to try to get pain medications Advised to continue Tylenol for pain, will loosen the splint for little bit to give her some relief this evening - Expected acute blood loss anemia in setting of femoral fracture; received a total of 5 units of PRBCs orgelio-operatively. Hgb is stable at 10 on 11/17, drain removed by orthopedics. - PT/OT/CM for placement. Target process required. Psychological evaluation performed 11/08/2019 (2) Hepatic encephalopathy: Patient had an episode of hepatic encephalopathy in the evening of 11/10/2019. Acute hepatic encephalopathy causing AMS and unresponsiveness treated with lactulose and head CT. She had the decreased responsiveness and her ammonia was checked and found to be elevated from her baseline of the 70-80 range. Patient had persistent bowel movements and did have her lactulose increased. Had one other episode on the of decreased responsiveness. Since that time, she has been doing very well. She is having multiple loose bowel movements daily and her lactulose is actually been back down to once daily which she continues to refuse. All of her other laxatives have also been held. Her ammonia level was trended and remained high at 120 although her mental status was completely normal and therefore she does not need to continue to have her ammonia levels checked continue Rifaximin -continue Lactulose once daily for now and can titrate to 3-4 bowel movements daily (3) Case management patient: Continue waiting on case management to continue to pursue the target process for placement for rehab and to a assisted facility for her spiral femur fracture status post surgical repair which will likely take greater than 30 days for rehab as she is 6 weeks nonweightbearing. Target process was approved today and plan is for placement at nursing facility tomorrow COVID-19 test was ordered today for screening purposes (4) Liver cirrhosis secondary to STEVE: Patient with liver cirrhosis secondary to STEVE, portal hypertension. Patient follows with gastroenterology, last seen by Dr. Toledo on 04/20/19. HCV screening has been completed and is negative. AFP on 03/09/2019 = 2.6. INR = 1.4 - Continue lactulose & rifaximin - Continue zinc supplementation 50 mg daily - Continue Aldactone for lower extremity edema and cirrhosis - Low sodium diet as tolerated - Avoid hepatotoxic agents-decreased dose of Tylenol to 650 mg p.o. every 8 hours (5) Seizure disorder: Patient with history of seizure. She follows with neurology, last seen on 04/02/19. EEG completed in May 2018 revealed a generalized spike and slow wave abnormality consistent with an underlying generalized seizure disorder. Patient had an MRI brain completed in October 2017 which was unremarkable. Patient failed VNS placement in the past, device was explanted. Presently on topiramate, Trileptal and Keppra. She was recently seen in the ER on 05/17/19 with report of seizures x 4 at home with a 5th seizure witnessed in triage - shaking her head and upper extremities. After consultation with Neurology, her oxcarbazepine was increased to 600mg po BID. - Continue topiramate 100 mg p.o. twice daily which is likely contributing to her metabolic acidosis - Continue Trileptal 300 mg p.o. every morning and 600 mg p.o. nightly ( confirms this is current dosing) - Continue Keppra 1500 mg p.o. twice daily No seizure activity here (6) Diabetes: Last hemoglobin A1c=4.6% on 10/20/19. Patient follows with Endocrinology/Diabetes education. - Continue Tresiba 10 units subcu every morning - Sliding scale insulin and blood sugars are well controlled (7) Severe persistent asthma: History of persistent asthma. She has seen Pulmonary as well as Allergy/Immunology in the past. Spirometry performed on 04/23/19 with FVC=1.37, 38% predicted. FEV1=1.18, 40% predicted and FEV1/FVC=86%. Suggestive of restrictive process vs obstruction with air trapping. Study limited. Formal PFTs ordered, not yet completed. -Patient is stable at this time, no wheezing on examination, not hypoxic, not short of breath - DuoNebs PRN (8) Major depressive disorder with psychotic features: Chronic. Stable. 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 - Continue Synthroid 50 mcg daily (10) GERD (gastroesophageal reflux disease): Chronic. Stable. - Continue PPI (11) Hx of migraines: Patient with episodic migraines. Well-controlled. - Continue topiramate no acute episodes - Patient has used Maxalt in the past with success for migraine relief if needed (12) DVT prophylaxis: Lovenox 40 mg SQ daily until 6 weeks postoperatively when she sees orthopedics again Dispo-medically stable for discharge, awaiting placement/approval of target process which is now approved-plan for discharge on 11/25 Admission and Anticipated Discharge Date Admission Date: November 02, 2019 Anticipated date of discharge: 11/26/19 Subjective Havin gpain in right thigh at site of surgery where brace in place. Asking "please can I have oxycodone?" multiple times after I advised against it. SHe was sound asleep when I walked in the room and appeared in no distress at all. No SOB or CP. Moving bowels 3 times today so far Review of Systems Review of Systems: All systems reviewed & are unremarkable except as noted in HPI & below Physical Exam Constitutional: WD/WN, vitals as above Eyes: + anicteric sclerae Neck: trachea midline, no thyromegaly Respiratory: normal respiratory effort, lungs clear to auscultation Cardiovascular: RRR, no murmur, no edema Chest (Breasts): Chest: normal inspection of chest Gastrointestinal (Abdomen): normal bowel sounds, soft, nontender, no hepatosplenomegaly Musculoskeletal: Extremities: + extremities abnormal to inspection (dressin gin place distal rt thigh,knee immobilizer in placeto just prox ), no cyanosis and no clubbing Skin: no rashes, warm and dry Neurologic: moves all extremities and awake; no focal motor deficits Psychiatric: Orientation: cooperative Affect: + flat affect Lymphatic: no lymphedema Results & Data Results & Data ([facility]) Vital Signs (Past 12 Hours) Vital Signs Temp Pulse Pulse Resp BP Pulse Ox 11/25/19 07:52 36.8 C 77 18 104/61 98 11/25/19 04:21 36.7 C 76 18 104/64 96 PG Care Time/CCT Total # of Minutes Spent Total Time Spent with Patient: Total time spent is greater than 50% in coordin ation of care (as documented) at patient's floor/unit and/or counseling patient: Coding Level of Care Code 06965 Subseq Hosp Care Lvl 1 Diagnoses Closed fracture of right distal femur S72.401A Hepatic encephalopathy K72.90 Case management patient Liver cirrhosis secondary to STEVE K75.81; K74.60 Seizure disorder G40.909 Diabetes E11.69; Z79.4 Diabetes mellitus complication status: with other specified complication Diabetes mellitus senior living insulin use: with senior living use Diabetes mellitus type: type 2 Severe persistent asthma J45.50 Asthma complication type: uncomplicated Major depressive disorder with psychotic features F32.3 Blanca's thyroiditis E06.3 GERD (gastroesophageal reflux disease) K21.9 Esophagitis presence: esophagitis presence not specified Hx of migraines Z86.69 DVT prophylaxis Z29.9 (1) Diabetes Diabetes mellitus complication status: with other specified complication Diabetes mellitus senior living insulin use: with senior living use Diabetes mellitus type: type 2 Qualified Code(s): E11.69 - Type 2 diabetes mellitus with other specified complication; Z79.4 - salvage determiner (current) use of insulin (2) Severe persistent asthma Asthma complication type: uncomplicated Qualified Code(s): J45.50 - Severe persistent asthma, uncomplicated (3) GERD (gastroesophageal reflux disease) Esophagitis presence: esophagitis presence not specified Qualified Code(s): K21.9 - Gastro-esophageal reflux disease without esophagitis
[2019-11-25] MEDS ORDERED: MENTHOL-ZINC OXIDE 360 APPLN/120 GM TUBE EXT SCH (19:00)
[2019-11-25] MEDS: PROMETHAZINE HCL 25 MG in SODIUM CHLORIDE 0.9% 50 ML IV PRN (20:44)
[2019-11-25] MEDS: DICLOFENAC SOD 1% GEL 100 GM TUBE EXT SCH (21:16)
[2019-11-26] MEDS: LEVOTHYROXINE SODIUM 50 MCG TABLET PO SCH (05:18)
[2019-11-26] MEDS: ACETAMINOPHEN 325 MG TAB PO SCH (05:18)
[2019-11-26] MEDS: MAGNESIUM OXIDE 400 MG TAB PO SCH (08:42)
[2019-11-26] MEDS: PANTOprazole 40 MG TAB PO SCH (08:42)
[2019-11-26] MEDS: ESCITALOPRAM OXALATE 10 MG TAB PO SCH (08:42)
[2019-11-26] MEDS: levETIRAcetam 500 MG TAB PO SCH (08:42)
[2019-11-26] MEDS: RIFAXIMIN 550 MG TABLET PO SCH (08:42)
[2019-11-26] MEDS: OXcarbazepine 150 MG TABLET PO SCH (08:42)
[2019-11-26] MEDS: TOPIRAMATE 100 MG TAB PO SCH (08:43)
[2019-11-26] MEDS: LORATADINE 10 MG TAB PO SCH (08:43)
[2019-11-26] MEDS: SPIRONOLACTONE 25 MG TAB PO SCH (08:43)
[2019-11-26] MEDS: LACTULOSE SYRUP 30 GM/45 ML UDP PO SCH ×2 (08:44→08:55)
[2019-11-26] MEDS: ENOXAPARIN INJ 40 MG/0.4 ML SYR SQ SCH (08:44)
[2019-11-26] MEDS: INSULIN DEGLUDEC 100 UNITS/ML SQ SCH (08:45)
[2019-11-26] MEDS: INSULIN ASPART 100 UNITS/ML 3 ML PEN SC SCH (08:48)
[2019-11-26] MEDS: DICLOFENAC SOD 1% GEL 100 GM TUBE EXT SCH (08:50)
[2019-11-26] MEDS: HEPARIN 100 UNIT/ML 5ML FLUSH FLUSH PRN (11:23)
--- NOTE | 2019-11-26 11:48 | Discharge Summary ---
Date of Service November 26, 2019 Admission HPI Per Admitting Provider Marcellerigoberto Munson is a 53-year-old female with multiple medical problems presenting with acute onset of nausea, chills, dizziness, gait instability. She also mentions mild headache and sore throat. Symptoms began acutely this afternoon. She reports poor oral intake lately. She denies recent travel or sick contacts. No concern for COVID-19 exposure ER course: Normal saline Principal Diagnosis Right hip fracture Discharge Exam Constitutional WD/WN, vitals as above Eyes + anicteric sclerae Neck trachea midline, no thyromegaly Respiratory normal respiratory effort, lungs clear to auscultation Cardiovascular RRR, no murmur, no edema Chest (Breasts) Chest: normal inspection of chest Gastrointestinal (Abdomen) normal bowel sounds, soft, nontender, no hepatosplenomegaly Musculoskeletal Extremities: + extremities abnormal to inspection (dressin gin place distal rt thigh,knee immobilizer in placeto just prox ), no cyanosis and no clubbing Skin no rashes, warm and dry Neurologic moves all extremities and awake; no focal motor deficits Psychiatric Orientation: alert, oriented x 3 and cooperative Affect: + flat affect Lymphatic no lymphedema Discharge Data Allergies Allergy/AdvReac Type Severity Reaction Status Date / Time metronidazole Allergy Severe SEIZURE Verified 10/31/19 22:12 tramadol Allergy Severe SEIZURES Verified 10/31/19 22:12 amoxicillin Allergy Intermediate SEE COMMENT Verified 10/31/19 22:12 baclofen Allergy Intermediate RASH Verified 10/31/19 22:12 butalbital Allergy Intermediate HIVES Verified 10/31/19 22:12 cat dander Allergy Intermediate Hives Verified 10/31/19 22:12 ceftriaxone [From Rocephin] Allergy Intermediate Hives Verified 10/31/19 22:12 clavulanic acid Allergy Intermediate Diarrhea Verified 10/31/19 22:12 dicyclomine Allergy Intermediate HIVES Verified 10/31/19 22:12 dog dander Allergy Intermediate Hives Verified 10/31/19 22:12 horse dander Allergy Intermediate Hives Verified 10/31/19 22:12 pollen extracts Allergy Intermediate Hives Verified 10/31/19 22:12 Tetracyclines Allergy Intermediate DOXYCYCLINE Verified 10/31/19 22:12 -HIVES adhesive Allergy Mild RASH, Verified 10/31/19 22:12 DUODERM=RED,ITCHY sulindac Allergy Mild ALLERGY Verified 10/31/19 22:12 LISTED "CLONDORAL"--HIVES Cephalosporins AdvReac Severe TURNS Verified 10/31/19 22:12 STOOL VERY DARK levofloxacin [From Levaquin] AdvReac Severe Vomiting Verified 10/31/19 22:12 metoclopramide AdvReac Severe SEIZURES Verified 10/31/19 22:12 paroxetine [From Paxil] AdvReac Severe Vomiting Verified 10/31/19 22:12 cefdinir AdvReac Intermediate Diarrhea Verified 10/31/19 22:12 celecoxib AdvReac Mild HIVES Verified 10/31/19 22:12 Consultations 10/31/19 23:28 ED Decision to Admit Stat 11/02/19 18:56 Consult Orthopedic Surgery Routine 11/04/19 20:55 Consult Case Management - Discharge Planning Routine 11/08/19 09:24 Consult Psychiatry Routine Procedures Performed Operation Date: 11/04/19 11:10 Actual Procedures p Open Reduction Internal Fixation Right Distal Femur Fracture, (Right) - Stephan Thrasher DO s Removal of hardware(Right) - Stephan Thrasher DO Ordered Studies 11/04/19 13:30 FL femur RT 2V Routine FL fluoroscopy <1hr Routine 11/10/19 19:48 CT head/brain wo con Stat Femur x-ray Chest x-ray x2 Hip/pelvis x-ray Abdominal series Hospital Course (1) Closed fracture of right distal femur: Periprosthetic fracture around previous IM nail in right femur, as a result of mechanical fall at home. Right hip/femur x-rays on 11/01 show: "Acute, distracted, and angulated spiral fracture of the distal femoral shaft around the inferior end of the intramedullary nail." - S/p right ORIF with Dr. Thrasher on 11/04/2019. Dressing changed on 11/06 and ortho feel surgical site looking good. Removed jerri at POD#14 - Non-weightbearing right leg x 6-8 weeks. Ortho will get Q2week x-rays to monitor bone bridging to make final determination. - Pain control with non-narcotics, she will say that the pain is a 10 out of 10 every day to try to get pain medications Advised to continue Tylenol for pain, will loosen the splint for little bit to give her some relief - Expected acute blood loss anemia in setting of femoral fracture; received a total of 5 units of PRBCs rogelio-operatively. Hgb is stable at 10 on 11/17, drain removed by orthopedics. Medically stable for discharge to rehab facility today Needs to remain on bedrest, follow-up with orthopedic surgery Check CBC, CMP in 2 to 3 days (2) Hepatic encephalopathy: Patient had an episode of hepatic encephalopathy in the evening of 11/10/2019. Acute hepatic encephalopathy causing AMS and unresponsiveness treated with lactulose and head CT. She had the decreased responsiveness and her ammonia was checked and found to be elevated from her baseline of the 70-80 range. Patient had persistent bowel movements and did have her lactulose increased. Had one other episode on the of decreased responsiveness. Since that time, she has been doing very well. She is having multiple loose bowel movements daily and her lactulose is actually been back down to once daily which she continues to refuse. All of her other laxatives have also been held. Her ammonia level was trended and remained high at 120 although her mental status was completely normal and therefore she does not need to continue to have her ammonia levels checked continue Rifaximin -continue Lactulose once daily for now and can titrate to 3-4 bowel movements daily (3) Case management patient: Continue waiting on case management to continue to pursue the target process for placement for rehab and to a custodial facility for her spiral femur fracture status post surgical repair which will likely take greater than 30 days for rehab as she is 6 weeks nonweightbearing. Target process was approved for placement at custodial facility after 2 weeks of awaiting determination COVID-19 test was ordered today for screening purposes (4) Liver cirrhosis secondary to STEVE: Patient with liver cirrhosis secondary to STEVE, portal hypertension. Patient follows with gastroenterology, last seen by Dr. Toledo on 04/20/19. HCV screening has been completed and is negative. AFP on 03/09/2019 = 2.6. INR = 1.4 - Continue lactulose & rifaximin - Continue zinc supplementation 50 mg daily - Continue Aldactone for lower extremity edema and cirrhosis - Low sodium diet as tolerated - Avoid hepatotoxic agents-decreased dose of Tylenol to 650 mg p.o. every 8 hours No narcotics advised (5) Seizure disorder: Patient with history of seizure. She follows with neurology, last seen on 04/02/19. EEG completed in May 2018 revealed a generalized spike and slow wave abnormality consistent with an underlying generalized seizure disorder. Patient had an MRI brain completed in October 2017 which was unremarkable. Patient fail ed VNS placement in the past, device was explanted. Presently on topiramate, Trileptal and Keppra. She was recently seen in the ER on 05/17/19 with report of seizures x 4 at home with a 5th seizure witnessed in triage - shaking her head and upper extremities. After consultation with Neurology, her oxcarbazepine was increased to 600mg po BID. - Continue topiramate 100 mg p.o. twice daily which is likely contributing to her metabolic acidosis - Continue Trileptal 300 mg p.o. every morning and 600 mg p.o. nightly ( confirms this is current dosing) - Continue Keppra 1500 mg p.o. twice daily No seizure activity here (6) Diabetes: Last hemoglobin A1c=4.6% on 10/20/19. Patient follows with Endocrinology/Diabetes education. - Continue Tresiba 10 units subcu every morning - Sliding scale insulin and blood sugars are well controlled (7) Severe persistent asthma: History of persistent asthma. She has seen Pulmonary as well as Allergy/Immunology in the past. Spirometry performed on 04/23/19 with FVC=1.37, 38% predicted. FEV1=1.18, 40% predicted and FEV1/FVC=86%. Suggestive of restrictive process vs obstruction with air trapping. Study limited. Formal PFTs ordered, not yet completed. -Patient is stable at this time, no wheezing on examination, not hypoxic, not short of breath - DuoNebs PRN (8) Major depressive disorder with psychotic features: Chronic. Stable. 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 - Continue Synthroid 50 mcg daily (10) GERD (gastroesophageal reflux disease): Chronic. Stable. - Continue PPI (11) Hx of migraines: Patient with episodic migraines. Well-controlled. - Continue topiramate no acute episodes - Patient has used Maxalt in the past with success for migraine relief if needed (12) DVT prophylaxis: Lovenox 40 mg SQ daily until 6 weeks postoperatively when she sees orthopedics again Dispo-medically stable for discharge, COVID-19 test is negative, stable for discharge to custodial facility at [facility] today Discussed her care with her today Total Time Total Time Spent Total Time Spent (In Minutes): >30 min Total Time Includes: Examination of the Patient, Discharge Planning and Medication Reconciliation Discharge Plan Discharge Items Patient Disposition: Transfer Shelter Fac Reason For Visit: NAUSEA, TACHYCARDIA Discharge Diagnosis: Hip fracture Condition on Discharge: Fair Activity: As commented below Non-emergency contact: Primary Care Provider and Surgeon Call non-emergency contact if: you have any medication questions and your symptoms worsen Follow-up/Referrals: Balaji Zaragoza DO [Primary Care Provider] - Diet: Low Sodium (2gm) Addtl Attending Provider Instructions: [facility] DISCHARGE INSTRUCTIONS: Femur fracture SELF CARE INSTRUCTIONS: A. You are to ambulate with a walker or wheelchair. B. You are to maintain strict NON WEIGHT BEARING on your operative lower extremity for at least 6 weeks. C. Wear low heeled shoes with non-slip soles D. Be sure that your floors are free of things that could trip you throw rugs, electrical cords, and small objects. Avoid wet and waxed floors, especially with crutches/walker/cane. E. Try to walk several times a day with rest periods between while maintaining nonweightbearing or transfer to chair F. You may shower 48 hours after surgery and get the incision area wet, but DO NOT soak or submerge incision area in water. (No baths, swimming pools, hot tubs) G. You may have a large, band-aid like dressing over your incision (Aquacel). This will remain on your incision for 7 days, and then can be removed. You CAN shower with this on. If incision is leaking through the dressing, please call the office . H. Do NOT apply soap or any ointment/lotions directly over incision. I. You may use ice as needed to operative site. SPECIAL CARE INSTRUCTIONS: VERY IMPORTANT TO READ AND REVIEW A. You may be at risk for phlebitis or blood clots. a. Wear surgical stockings (MIRYAM hose) for 2 weeks after surgery to improve circulation and reduce swelling. b. Take LOVENOX 40mg SQ daily for 4 weeks or as directed. This is your blood thinner. c. If you are on Coumadin- you will have daily/weekly blood work to monitor your levels. This will be done by either your family physician/metal polisher (if you are on Coumadin chronically) versus your orthopedic surgeon. Expect a phone call the day of or the day after your blood work is drawn to adjust your dose accordingly. B. There are a few signs you need to watch for after you are home. Call [facility] at [phone] if you experience any of the following: a. If you have a temperature of 101 degrees or higher. b. Sudden increase in pain in your hip not relieved by rest or pain medication. c. Any fluid or drainage from the incision; redness of the incision. d. Shortness of breath or chest pain. B. Please call [facility] at [phone] if you have any questions or concerns about your operation or recovery. C. Call your physician if: a. Temperature is greater than 101 degrees (F). b. Pain is not relieved by prescribed pain medications. c. Increase drainage or redness from incision. d. Unanswered questions or concerns. D. Pain Medication: a. You will be prescribed pain medication upon discharge that should last till your first post-operative appointment. b. If you experience nausea and/or skin rash, discontinue this medication and contact our office for an alternative medication. c. Caution- narcotic pain medication can cause constipation. DRESSING AND KNEE IMMOBILIZER INSTRUCTIONS: Please change dressing daily cover incision with 4 x 4's and christelle wrap. Maintain knee immobilizer, may remove for gentle range of motion exercises. FOLLOW UP VISIT: Please call [facility] at [phone] to schedule a postoperative follow-up appointment 4 weeks after discharge. Pending Studies at Discharge: No Stand-Alone Forms: My [facility] Skilled Items Patient informed of condition?: Yes DNR: No Discharge Level of Care: Skilled Communicable Disease: No Discharge Prognosis: Stable Lines: None Urinary Catheter: No Medications and DC Order Prescriptions: New acetaminophen 325 mg Tablet 650 mg PO Q8 Qty: 180 RF: 0 enoxaparin 40 mg/0.4 mL Syringe 40 mg subcut QAM 30 Days Qty: 12 RF: 0 diclofenac sodium [Voltaren] 1 % Gel 4 g EXT QID Qty: 100 RF: 0 escitalopram oxalate 10 mg Tablet 10 mg PO QAM Qty: 30 RF: 0 Calmoseptine 0.44-20.6 % Ointment 1 applic EXT UD Qty: 71 RF: 0 Continued ipratropium-albuterol 0.5 mg-3 mg(2.5 mg base)/3 mL solution for nebulization 3 ml INH QID PRN (Reason: wheezing) Qty: 90 RF: 0 omeprazole 40 mg capsule,delayed release(DR/EC) 40 mg PO QAM Qty: 90 RF: 1 Xifaxan 550 mg tablet 550 mg PO BID Qty: 60 RF: 5 Novolog Flexpen U-100 Insulin 100 unit/mL (3 mL) insulin pen See Rx Instructions SQ .COMPLEX Qty: 15 RF: 5 rizatriptan 10 mg tablet,disintegrating 10 mg PO .COMPLEX PRN (Reason: migraine headache) 30 Days Qty: 9 RF: 5 oxcarbazepine 300 mg tablet 300 mg PO .COMPLEX Qty: 90 RF: 5 sodium chloride [Saline Nasal] 0.65 % aerosol,spray 1 sprays INTNAS BID PRN (Reason: dry nasal passages) Qty: 15 RF: 0 levetiracetam 750 mg tablet 1,500 mg PO BID 30 Days Qty: 120 RF: 5 topiramate 100 mg tablet 100 mg PO BID Qty: 60 RF: 5 epinephrine [EpiPen 2-Garret] 0.3 mg/0.3 mL auto-injector 0.3 mg IM Q10M PRN (Reason: Anaphylaxis) RF: 0 lecithin 1,200 mg capsule 1,200 mg PO QDL RF: 0 loratadine 10 mg tablet 10 mg PO QAM RF: 0 multivitamin [Multiple Vitamins] Tablet 1 tab PO QDL RF: 0 zinc 50 mg Tablet 50 mg PO QDL RF: 0 Slow-Mag 71.5 mg Tablet,Delayed Release (Dr/Ec) 143 mg PO QDL RF: 0 vitamin A 8,000 unit Capsule 8,000 unit PO QDL RF: 0 vitamin B complex Tablet 1 tab PO QDL RF: 0 cholecalciferol (vitamin D3) [Vitamin D3] 1,000 unit Capsule 1,000 unit PO QDL RF: 0 Probiotic 3 billion cell Capsule 0 mmu cells PO QDL RF: 0 promethazine 25 mg tablet 25 mg PO Q6H PRN (Reason: sedation) Qty: 12 RF: 0 cranberry 400 mg Capsule 400 mg PO BID RF: 0 melatonin 5 mg Tablet 5 - 15 mg PO HS PRN (Reason: Sleep) RF: 0 spironolactone 100 mg tablet 50 mg PO QAM RF: 0 levothyroxine [Euthyrox] 50 mcg tablet 50 mcg PO QAM RF: 0 Refresh Optive Advanced 0.5-1-0.5 % drops 2 drops OP TID PRN (Reason: Dry Eyes) RF: 0 Changed lactulose 20 gram/30 mL solution 30 ml PO QAM Qty: 0 RF: 0 Tresiba FlexTouch U-100 100 unit/mL (3 mL) insulin pen 10 units subcut QAM Qty: 0 RF: 0 Discharge Orders: Discharge Order (Routine); Ordered 11/26/19 Ordered By: Mary Ann Rivera Admission Data Admit Date/Time: 11/02/19 18:56 Attending Provider: Mary Ann Rivera Admit Provider: Amalia Beatty Primary Care Provider: Balaji Zaragoza Other Providers: Law Freeman ; Charlie Otto, ; Amalia Beatty ; Abdulkadir Torres ; Mary Ann aMlik Other Interventions: Discharge Summary Assessment (RN) Last Done: 11/26/19 11:14 Coding Level of Care Code D/C Day Management >30 mins Diagnoses Closed fracture of right distal femur S72.401A Hepatic encephalopathy K72.90 Case management patient Liver cirrhosis secondary to STEVE K75.81; K74.60 Seizure disorder G40.909 Diabetes E11.69; Z79.4 Diabetes mellitus complication status: with other specified complication Diabetes mellitus [facility] insulin use: with terminal makeup operator use Diabetes mellitus type: type 2 Severe persistent asthma J45.50 Asthma complication type: uncomplicated Major depressive disorder with psychotic features F32.3 Blanca's thyroiditis E06.3 GERD (gastroesophageal reflux disease) K21.9 Esophagitis presence: esophagitis presence not specified Hx of migraines Z86.69 DVT prophylaxis Z29.9
== END 2019-11-26 11:42 | DRG 480 ==
LOC: ED 21:21 → 2N 21:21 → SUATTDRO 11-01 00:15 → 2N 11-01 01:21 → SUATTDRO 11-02 18:56 → 3N 11-12 21:22

== ENCOUNTER 2020-12-05 12:48 | Inpatient (IN) ==
--- NOTE | 2020-12-05 16:32 | Emergency Department Note ---
History of Present Illness General Chief complaint: Urinary Symptoms Stated complaint: URINARY SYMPTOMS Time Seen by Provider: 12/05/20 16:18 Source: family Limitations: other (Nonverbal) History of Present Illness Provider complaint: Urinary symptoms Onset (ago): week(s) Location: genitals Pain Consistency: + constant Quality: + other (Malodorous urine) Relieved By: + none Associated symptoms: no cough, no fever/chills or no nausea/vomiting This is a 54-year-old female brought in by her for evaluation of urinary symptoms for the past week. History is obtained from the as the patient is nonverbal. She has had malodorous urine for about a week now. Over the past 2 days she has had urinary incontinence. She has not had any fecal incontinence. She did not get up to go to the bathroom overnight and peed in her bed. She has not indicated any pain to him. She did have a fall on November 29 and was evaluated here. She is not vomiting. She has not been verbal with him today and so he brought her in for evaluation. She has had no fevers or diarrhea. He is concerned that she has a UTI as she sometimes becomes less responsive when she has a urinary tract infection. History is otherwise unobtainable. Home Medications Medication Instructions Recorded Confirmed Type multivitamin (Multiple Vitamins) 1 tab PO QDL 12/26/17 12/05/20 History lactobacillus combination no.4 3 1 mmu cells PO QDL 09/20/18 12/05/20 History billion cell capsule (Probiotic) vitamin A 2,400 mcg capsule 8,000 unit PO QDL 09/20/18 12/05/20 History vitamin B complex 1 tab PO QDL 09/20/18 12/05/20 History zinc 50 mg tablet 50 mg PO QDL 02/09/19 12/05/20 History epinephrine 0.3 mg/0.3 mL 0.3 mg IM Q10M PRN 04/02/19 12/05/20 History injection, auto-injector (EpiPen 2-Garret) lecithin 1,200 mg capsule 1,200 mg PO QDL 04/29/19 12/05/20 History ipratropium 0.5 mg-albuterol 3 mg 3 ml INH QID PRN #90 ml 07/30/19 12/05/20 Rx (2.5 mg base)/3 mL nebulization soln [id number]-[id number] 2 drops OP BID 10/31/19 12/05/20 History 80 0.5 %-1 %-0.5 % eye drops (Refresh Optive Advanced) acetaminophen 500 mg tablet 1,000 mg PO HS 01/09/20 12/05/20 History (Acetaminophen Extra Strength) calcium carbonate 500 mg calcium 500 mg PO DAILY 01/27/20 12/05/20 History (1,250 mg) tablet (Calcium 500) rimegepant 75 mg disintegrating 75 mg PO DAILY PRN 30 Days #8 tab 03/21/20 12/05/20 Rx tablet (Nurtec ODT) fexofenadine 60 mg tablet 60 mg PO QAM 04/12/20 12/05/20 History topiramate 100 mg tablet 100 mg PO BID #60 tab 05/17/20 12/05/20 Rx albuterol sulfate 90 mcg/actuation 2 puff INHALATION Q4H PRN #1 05/31/20 12/05/20 Rx aerosol inhaler inhaler cranberry 400 mg capsule 400 mg PO BID 06/08/20 12/05/20 History magnesium oxide 400 mg (241.3 mg 400 mg PO QAM 06/29/20 12/05/20 History magnesium) tablet rifaximin 550 mg tablet (Xifaxan) 550 mg PO BID #60 tab 07/24/20 12/05/20 Rx insulin aspart U-100 100 unit/mL 15 - 25 unit SQ TID #30 ml MDD 60 09/28/20 12/05/20 Rx (3 mL) subcutaneous pen (Novolog units Flexpen U-100 Insulin aspart) budesonide-formoterol HFA 160 2 puff INHALATION BID PRN inhaler 10/03/20 12/05/20 History mcg-4.5 mcg/actuation aerosol inhaler (Symbicort) insulin degludec 100 unit/mL (3 30 unit SUBCUT QAM ml 10/03/20 12/05/20 History mL) subcutaneous pen (Tresiba FlexTouch U-100 insulin) benztropine 1 mg tablet 1 mg PO TID 30 Days #90 tab 10/07/20 12/05/20 Rx promethazine 25 mg tablet 25 mg PO Q8H PRN #10 tab 10/11/20 12/05/20 Rx levetiracetam 750 mg tablet 1,500 mg PO BID 30 Days #120 tab 10/30/20 12/05/20 Rx lactulose 20 gram/30 mL oral 30 g PO ONCE PRN #1200 ml 10/31/20 12/05/20 Rx solution levothyroxine 50 mcg tablet 50 mcg PO QAM #30 tab 11/10/20 12/05/20 Rx (Euthyrox) omeprazole 40 mg capsule,delayed 40 mg PO QAM #90 cap 11/15/20 12/05/20 Rx release ascorbate calcium (vitamin C) 500 500 mg PO DAILY 11/16/20 12/05/20 History mg tablet famotidine 20 mg tablet 40 mg PO HS tab 11/16/20 12/05/20 History vitamin E (dl, acetate) 180 mg 180 mg PO Q OTHER DAY cap 11/16/20 12/05/20 History (400 unit) capsule ropinirole 0.25 mg tablet 0.25 mg PO HS 11/29/20 12/05/20 History cholecalciferol (vitamin D3) 25 5,000 unit PO DAILY cap 11/30/20 12/05/20 History mcg (1,000 unit) capsule (Vitamin D3) hydrocortisone 10 mg tablet See Rx Instructions .ROUTE 11/30/20 12/05/20 History .COMPLEX tab oxcarbazepine 300 mg tablet See Rx Instructions .ROUTE 11/30/20 12/05/20 History .COMPLEX tab pravastatin 20 mg tablet 20 mg PO QAM 12/05/20 12/05/20 History sulfamethoxazole 800 1 tab PO BID 10 Days #20 tab 12/05/20 Rx mg-trimethoprim 160 mg tablet (Bactrim DS) teriparatide 20 mcg/dose (620 20 mcg SUBCUT PM 12/05/20 12/05/20 History mcg/2.48 mL) subcutaneous pen injector (Forteo) Allergies Allergy/AdvReac Type Severity Reaction Status Date / Time metronidazole Allergy Severe SEIZURE Verified 11/30/20 15:14 tramadol Allergy Severe SEIZURES Verified 11/30/20 15:14 amoxicillin Allergy Intermediate SEE COMMENT Verified 11/30/20 15:14 baclofen Allergy Intermediate RASH Verified 11/30/20 15:14 butalbital Allergy Intermediate HIVES Verified 11/30/20 15:14 ceftriaxone [From Rocephin] Allergy Intermediate Hives Verified 11/30/20 15:14 dicyclomine Allergy Intermediate HIVES Verified 11/30/20 15:14 pollen extracts Allergy Intermediate Hives Verified 11/30/20 15:14 Sulfa (Sulfonamide Allergy Intermediate CAUSES Verified 11/30/20 15:14 Antibiotics) BLACK STOOLS Tetracyclines Allergy Intermediate DOXYCYCLINE Verified 11/30/20 15:14 -HIVES adhesive Allergy Mild RASH, Verified 11/30/20 15:14 DUODERM=RED,ITCHY celecoxib Allergy Mild HIVES Verified 11/30/20 15:14 sulindac Allergy Mild ALLERGY Verified 11/30/20 15:14 LISTED "CLONDORAL"--HIVES Cephalosporins AdvReac Severe TURNS Verified 11/30/20 15:14 STOOL VERY DARK levofloxacin [From Levaquin] AdvReac Severe Vomiting Verified 11/30/20 15:14 metoclopramide AdvReac Severe SEIZURES Verified 11/30/20 15:14 paroxetine [From Paxil] AdvReac Severe Vomiting Verified 11/30/20 15:14 dextromethorphan AdvReac Mild Vomiting Verified 11/30/20 15:14 Past Med/Surg History Medical History ACTH deficiency Chronic liver disease and cirrhosis Controlled type 2 diabetes mellitus, with long-term current use of insulin Depression Frequent falls See care alert special indicator. H/O osteoporotic pathological fracture Hepatic encephalopathy HX>ON XIFAXAN Hypothyroidism Migraine Myoclonic seizure "FREQUENT MYOCLONIC SEIZURES" FOLLOWS WITH DR. YANG Nonalcoholic fatty liver disease Pancytopenia Chronic. Follows with cancer center. Platelets have been > 100 since 10/2019, WNL on 05/23 labs. H/H stable in 8-10 range. Parkinsonism Secondary adrenal insufficiency Seizure disorder (05/26/11) + PSEUDOSEIZURES Sleepiness Suicidal ideation DENIES ANY CURRENT PROBLEM Surgical History Femur fracture, right SPIRAL FRACTURE REPAIRED (HARDWARE REPAIRED) History of ankle surgery RT/LEFT History of appendectomy History of cholecystectomy History of colonoscopy History of esophagogastroduodenoscopy (EGD) History of kyphoplasty History of open reduction and internal fixation (ORIF) procedure RT HIP History of surgery (~06/02/20) screw/plate removal from left humerus History of surgery on arm LEFT (HARDWARE INTACT) History of tooth extraction History of vascular access device right A port Hx of carpal tunnel repair RT/LEFT Hx of cataract extraction RT/LEFT S/P laminectomy lumbar spine S/P nasal surgery nasal bone fracture repair S/P [facility] (1997) Family History Other Adopted No pertinent family history Social History Smoking Status: Never smoker Tobacco Type: Cigarettes Second Hand Exposure: No; Hx Alcohol Use: No Hx Substance Use: No Preferred Language: Bengali Communication Ability: Effective Visual Impairment: No Limitations Rcp Required: No Beliefs That Will Affect Care: None marital status: Current Living Situation: Spouse Current Living Situation Comment: Lives with Benny current occupational status: unemployed and disabled How many Children do You have: 0 Feels Safe at Home: Yes Seatbelt Use: always Assistive Devices: Denture - Upper, Denture - Lower, Glasses, Nebulizer and Wheelchair Review of Systems See HPI for pertinent positives & negatives. Unobtainable due to cognitive status Physical Exam Vital Signs Vital Signs - 24 hr 12/05/20 13:34 12/05/20 17:30 12/05/20 18:00 Temperature Temperature Source Pulse Rate 72 61 64 Pulse Rate from SpO2 Sensor 62 64 Respiratory Rate 16 20 22 Blood Pressure 121/70 171/75 H 169/73 H Blood Pressure Mean 87 107 105 Pulse Oximetry 95 98 98 Oxygen Delivery Method Room Air Sepsis Recent Fever Within 48 Hours No Sepsis New/Unexplained Change in Mental Status No Sepsis Action Taken by Nursing No Action Required 12/05/20 18:30 12/05/20 18:50 Temperature 36.7 C Temperature Source Oral Pulse Rate 66 Pulse Rate from SpO2 Sensor 66 Respiratory Rate 25 H Blood Pressure 149/75 H Blood Pressure Mean 99 Pulse Oximetry 98 Oxygen Delivery Method Sepsis Recent Fever Within 48 Hours Sepsis New/Unexplained Change in Mental Status Sepsis Action Taken by Nursing The physical exam is limited due to the patient's condition. Constitutional: Vital signs reviewed. Eyes: Pupils are equal round reactive to light. Conjunctiva are noninjected. HENT: Normocephalic atraumatic. Respiratory: Clear to auscultation bilaterally. Breath sounds are equal bilaterally. Cardiovascular: Regular rate and rhythm. No murmurs, rubs or gallops. GI: Soft, nondistended and nontender. Bowel sounds are present. Musculoskeletal: No peripheral edema. Integumentary: No cyanosis. Neurological: The patient opened her eyes to make eye contact with me when I walked in the room but has since kept her eyes closed. She resists having her eyelids open for pupillary exam. She will not respond to questions or follow commands. Psychiatric: Unable to assess. Medical Decision Making Differential Diagnosis UTI, hyperammonemia, hepatic encephalopathy, anemia, stress incontinence, malingering Medical Records Attestation: I reviewed the patient's medical records. I did perform a limited focused review of portions of the patient's old chart on the electronic medical record. The patient was seen here in November 29 after a fall out of bed. She had a negative CT of her head at that time. Chest x-ray was unremarkable. Blood work showed a pneumonia of 92. Home Medications Current Medication List: was personally reviewed by me Laboratory Data Attestation: I reviewed the patient's lab results. Result diagrams: 12/05/20 17:10 12/05/20 17:10 Lab Results 12/05/20 12/05/20 12/05/20 Range/Units 17:00 17:10 17:10 WBC 4.33 L (4.8-10.8) K/uL RBC 3.32 L (4.2-5.4) M/uL Hgb 12.3 (12.0-16.0) g/dL Hct 35.2 L (37-47) % MCV 106.0 H (80-100) fL MCH 37.0 H (25-34) pg MCHC 34.9 (32-36) g/dL RDW Std Deviation 58.7 H (36.4-46.3) fL RDW Coeff of Irina 15.2 H (11.5-14.5) % Plt Count 93 L (130-400) K/uL MPV 10.3 (7.4-10.4) fL Immature Gran % (Auto) 0.0 % Neut % (Auto) 51.3 % Lymph % (Auto) 36.5 % [place] % (Auto) 9.7 % Eos % (Auto) 1.8 % Baso % (Auto) 0.7 % Neut # (Auto) 2.22 (1.4-6.5) K/uL Lymph # (Auto) 1.58 (1.2-3.4) K/uL [place] # (Auto) 0.42 (0.11-0.59) K/uL Eos # (Auto) 0.08 (0-0.5) K/uL Baso # (Auto) 0.03 (0-0.2) K/uL Immature Gran # (Auto) 0.00 (0.00-0.02) K/uL Polychromasia 1+ Sodium 149 H (136-145) mmol/L Potassium 3.5 (3.5-5.1) mmol/L Chloride 122 H (98-107) mmol/L Carbon Dioxide 24 (21-32) mmol/L Anion Gap 3.0 (3-11) BUN 17 (7-18) mg/dl Creatinine 0.63 (0.6-1.2) mg/dl Est Cr Clr Drug Dosing Not Reportable Est GFR ( Amer) 117.9 ml/min Est GFR (Non-Af Amer) 101.7 ml/min BUN/Creatinine Ratio 26.3 H (10-20) Glucose 110 H (70-99) mg/dl Lactate (0.4-2.0) mmol/L Calcium 7.9 L (8.5-10.1) mg/dl Total Bilirubin 2.1 H (0.2-1) mg/dl AST 41 H (15-37) U/L ALT 55 (12-78) U/L Alkaline Phosphatase 175 H (45-117) U/L Ammonia (11-32) umol/L Total Protein 6.1 L (6.4-8.2) gm/dl Albumin 2.8 L (3.4-5.0) gm/dl Globulin 3.3 (2.5-4.0) gm/dl Albumin/Globulin Ratio 0.8 L (0.9-2) Lipase 69 L (73-393) U/L Urine Color Dark Yellow Urine Appearance Cloudy A (Clear) Urine pH 6.5 (4.5-7.5) Ur Specific [place] 1.016 (1.000-1.030) Urine Protein Negative (Negative) Urine Glucose (UA) Negative (Negative) Urine Ketones Negative (Negative) Urine Blood Negative (Negative) Urine Nitrite Positive A (Negative) Urine Bilirubin Negative (Negative) Urine Urobilinogen Negative (Negative) Ur Leukocyte Esterase 2+ H (Negative) Urine WBC (Auto) >30 H (0-5) /hpf Urine RBC (Auto) 0-4 (0-4) /hpf U Hyaline Cast (Auto) 10-30 H (0-5) /lpf U Epithel Cells (Auto) 0-5 (0-5) /lpf Urine Bacteria (Auto) 4+ H (Negative) COVID-19 Eval Order SARS-CoV-2 (PCR) (Negative) 12/05/20 12/05/20 12/05/20 Range/Units 17:10 19:21 19:31 WBC (4.8-10.8) K/uL RBC (4.2-5.4) M/uL Hgb (12.0-16.0) g/dL Hct (37-47) % MCV (80-100) fL MCH (25-34) pg MCHC (32-36) g/dL RDW Std Deviation (36.4-46.3) fL RDW Coeff of Irina (11.5-14.5) % Plt Count (130-400) K/uL MPV (7.4-10.4) fL Immature Gran % (Auto) % Neut % (Auto) % Lymph % (Auto) % [place] % (Auto) % Eos % (Auto) % Baso % (Auto) % Neut # (Auto) (1.4-6.5) K/uL Lymph # (Auto) (1.2-3.4) K/uL [place] # (Auto) (0.11-0.59) K/uL Eos # (Auto) (0-0.5) K/uL Baso # (Auto) (0-0.2) K/uL Immature Gran # (Auto) (0.00-0.02) K/uL Polychromasia Sodium (136-145) mmol/L Potassium (3.5-5.1) mmol/L Chloride (98-107) mmol/L Carbon Dioxide (21-32) mmol/L Anion Gap (3-11) BUN (7-18) mg/dl Creatinine (0.6-1.2) mg/dl Est Cr Clr Drug Dosing Est GFR ( Amer) ml/min Est GFR (Non-Af Amer) ml/min BUN/Creatinine Ratio (10-20) Glucose (70-99) mg/dl Lactate 0.7 (0.4-2.0) mmol/L Calcium (8.5-10.1) mg/dl Total Bilirubin (0.2-1) mg/dl AST (15-37) U/L ALT (12-78) U/L Alkaline Phosphatase (45-117) U/L Ammonia 98.1 H (11-32) umol/L Total Protein (6.4-8.2) gm/dl Albumin (3.4-5.0) gm/dl Globulin (2.5-4.0) gm/dl Albumin/Globulin Ratio (0.9-2) Lipase (73-393) U/L Urine Color Urine Appearance (Clear) Urine pH (4.5-7.5) Ur Specific [place] (1.000-1.030) Urine Protein (Negative) Urine Glucose (UA) (Negative) Urine Ketones (Negative) Urine Blood (Negative) Urine Nitrite (Negative) Urine Bilirubin (Negative) Urine Urobilinogen (Negative) Ur Leukocyte Esterase (Negative) Urine WBC (Auto) (0-5) /hpf Urine RBC (Auto) (0-4) /hpf U Hyaline Cast (Auto) (0-5) /lpf U Epithel Cells (Auto) (0-5) /lpf Urine Bacteria (Auto) (Negative) COVID-19 Eval Order Covid19 at [facility] SARS-CoV-2 (PCR) (Negative) 12/05/20 Range/Units 19:31 WBC (4.8-10.8) K/uL RBC (4.2-5.4) M/uL Hgb (12.0-16.0) g/dL Hct (37-47) % MCV (80-100) fL MCH (25-34) pg MCHC (32-36) g/dL RDW Std Deviation (36.4-46.3) fL RDW Coeff of Irina (11.5-14.5) % Plt Count (130-400) K/uL MPV (7.4-10.4) fL Immature Gran % (Auto) % Neut % (Auto) % Lymph % (Auto) % [place] % (Auto) % Eos % (Auto) % Baso % (Auto) % Neut # (Auto) (1.4-6.5) K/uL Lymph # (Auto) (1.2-3.4) K/uL [place] # (Auto) (0.11-0.59) K/uL Eos # (Auto) (0-0.5) K/uL Baso # (Auto) (0-0.2) K/uL Immature Gran # (Auto) (0.00-0.02) K/uL Polychromasia Sodium (136-145) mmol/L Potassium (3.5-5.1) mmol/L Chloride (98-107) mmol/L Carbon Dioxide (21-32) mmol/L Anion Gap (3-11) BUN (7-18) mg/dl Creatinine (0.6-1.2) mg/dl Est Cr Clr Drug Dosing Est GFR ( Amer) ml/min Est GFR (Non-Af Amer) ml/min BUN/Creatinine Ratio (10-20) Glucose (70-99) mg/dl Lactate (0.4-2.0) mmol/L Calcium (8.5-10.1) mg/dl Total Bilirubin (0.2-1) mg/dl AST (15-37) U/L ALT (12-78) U/L Alkaline Phosphatase (45-117) U/L Ammonia (11-32) umol/L Total Protein (6.4-8.2) gm/dl Albumin (3.4-5.0) gm/dl Globulin (2.5-4.0) gm/dl Albumin/Globulin Ratio (0.9-2) Lipase (73-393) U/L Urine Color Urine Appearance (Clear) Urine pH (4.5-7.5) Ur Specific [place] (1.000-1.030) Urine Protein (Negative) Urine Glucose (UA) (Negative) Urine Ketones (Negative) Urine Blood (Negative) Urine Nitrite (Negative) Urine Bilirubin (Negative) Urine Urobilinogen (Negative) Ur Leukocyte Esterase (Negative) Urine WBC (Auto) (0-5) /hpf Urine RBC (Auto) (0-4) /hpf U Hyaline Cast (Auto) (0-5) /lpf U Epithel Cells (Auto) (0-5) /lpf Urine Bacteria (Auto) (Negative) COVID-19 Eval Order SARS-CoV-2 (PCR) NEGATIVE (Negative) MDM Narrative I did evaluate the patient as noted above. I did obtain history from the [facility] as the patient is nonverbal. The patient does have frequent episodes of being nonverbal but organic disease is not always found as the cause of this. She has had multiple work-ups for this type of symptomatology in the past including multiple CTs of her head. She does open her eyes to voice. She will look away when you try to talk to her. Her port was accessed. I did order a urine analysis. She does appear to have an infection. Urine culture was sent. I did order and review the patient's blood work as noted in the electronic medical record. She has pancytopenia which is not new for her. Her sodium is 149 but this has been elevated in the past. Her sodium was 147 in September and 149 on November 29. Lactate is elevated to 98 compared to 92 on November 29. She has chronic hypocalcemia with a calcium of 7.9. I did discuss the test results with the patient's . The patient opened her eyes during the conversation and would look at me but did not answer any questions. She would look away when addressed. I did originally talk about outpatient treatment with the . He seemed to be in agreement with this but then later became concerned because of her noncommunicative state. She was therefore hospitalized for further care and evaluation. I did treat her with a lactulose enema. I did discuss the case with the hospitalist and corrections caseworker. Impression & Plan Acute UTI, Hyperammonemia, Pancytopenia, Chronic hypernatremia, Hypocalcemia Discharge Plan Visit Data Chief Complaint: Urinary Symptoms Stated Complaint: URINARY SYMPTOMS ED Provider: Erick Barone Discharge Problem: Acute UTI, Hyperammonemia, Pancytopenia, Chronic hypernatremia, Hypocalcemia Patient Disposition: Being Evaluated by Hospitalist Discharge Instructions Interventions: ED Discharge Assessment Last Done: 12/05/20 21:27 Forms Stand Alone Forms: [facility], [facility] Emergency Department, Important Visit Information Prescriptions Prescriptions: New sulfamethoxazole-trimethoprim [Bactrim DS] 800-160 mg tablet 1 tab PO BID 10 Days Qty: 20 RF: 0 No Action ipratropium-albuterol 0.5 mg-3 mg(2.5 mg base)/3 mL solution for nebulization 3 ml INH QID PRN (Reason: wheezing) Qty: 90 RF: 0 Nurtec ODT 75 mg tablet,disintegrating 75 mg PO DAILY PRN (Reason: migraine headache) 30 Days Qty: 8 RF: 3 topiramate 100 mg tablet 100 mg PO BID Qty: 60 RF: 5 albuterol sulfate 90 mcg/actuation HFA aerosol inhaler 2 puff inhalation Q4H PRN (Reason: shortness of breath) Qty: 1 RF: 3 Xifaxan 550 mg tablet 550 mg PO BID Qty: 60 RF: 5 insulin aspart U-100 [Novolog Flexpen U-100 Insulin] 100 unit/mL (3 mL) insulin pen 15 - 25 unit SQ TID MDD 60 units Qty: 30 RF: 5 benztropine 1 mg tablet 1 mg PO TID 30 Days Qty: 90 RF: 1 lactulose 20 gram/30 mL solution 30 g PO ONCE PRN (Reason: Constipation) Qty: 1200 RF: 0 levothyroxine [Euthyrox] 50 mcg tablet 50 mcg PO QAM Qty: 30 RF: 2 omeprazole 40 mg capsule,delayed release(DR/EC) 40 mg PO QAM Qty: 90 RF: 1 calcium carbonate [Calcium 500] 500 mg calcium (1,250 mg) tablet 500 mg PO DAILY RF: 0 levetiracetam 750 mg tablet 1,500 mg PO BID 30 Days Qty: 120 RF: 5 cholecalciferol (vitamin D3) [Vitamin D3] 25 mcg (1,000 unit) capsule 5,000 unit PO DAILY RF: 0 budesonide-formoterol [Symbicort] 160-4.5 mcg/actuation HFA aerosol inhaler 2 puff inhalation BID PRN (Reason: Shortness Of Breath) RF: 0 Tresiba FlexTouch U-100 100 unit/mL (3 mL) insulin pen 30 unit subcut QAM RF: 0 promethazine 25 mg tablet 25 mg PO Q8H PRN (Reason: nausea and vomiting) Qty: 10 RF: 0 famotidine 20 mg tablet 40 mg PO HS RF: 0 ascorbate calcium (vitamin C) 500 mg tablet 500 mg PO DAILY RF: 0 vitamin E (dl, acetate) 180 mg (400 unit) capsule 180 mg PO Q OTHER DAY RF: 0 epinephrine [EpiPen 2-Garret] 0.3 mg/0.3 mL auto-injector 0.3 mg IM Q10M PRN (Reason: Anaphylaxis) RF: 0 lecithin 1,200 mg capsule 1,200 mg PO QDL RF: 0 cranberry 400 mg capsule 400 mg PO BID RF: 0 multivitamin [Multiple Vitamins] Tablet 1 tab PO QDL RF: 0 zinc 50 mg Tablet 50 mg PO QDL RF: 0 acetaminophen [Acetaminophen Extra Strength] 500 mg Tablet 1,000 mg PO HS RF: 0 vitamin A 8,000 unit Capsule 8,000 unit PO QDL RF: 0 vitamin B complex Tablet 1 tab PO QDL RF: 0 Probiotic 3 billion cell Capsule 1 mmu cells PO QDL RF: 0 Refresh Optive Advanced 0.5-1-0.5 % drops 2 drops OP BID RF: 0 fexofenadine 60 mg Tablet 60 mg PO QAM RF: 0 magnesium oxide 400 mg (241.3 mg magnesium) tablet 400 mg PO QAM RF: 0 ropinirole 0.25 mg tablet 0.25 mg PO HS RF: 0 hydrocortisone 10 mg tablet See Rx Instructions .ROUTE .COMPLEX RF: 0 oxcarbazepine 300 mg tablet See Rx Instructions .ROUTE .COMPLEX RF: 0 pravastatin 20 mg tablet 20 mg PO QAM RF: 0 teriparatide [Forteo] 20 mcg/dose (620mcg/2.48mL) pen injector 20 mcg subcut PM RF: 0 Referrals Referrals: Jade Currie PA-C [Primary Care Provider] -
[2020-12-05 17:21] LABS: Hematocrit (blood only) 35.2 % (37-47); Hemoglobin 12.3 g/dL (12.0-16.0); Mean Corpuscular Hgb Conc 34.9 g/dL (32-36); RDW Coefficient of Variation 15.2 % (11.5-14.5); RDW Standard Deviation 58.7 fL (36.4-46.3); Red Blood Count 3.32 M/uL (4.2-5.4); White Blood Count 4.33 K/uL (4.8-10.8)
[2020-12-05 17:30] LABS: Appearance Urine Cloudy (Clear); Bacteria Urine Automated 4+ (Negative); Bilirubin Urine Negative (Negative); Blood Urine Negative (Negative); Color Urine Dark Yellow; Epithelial Cell Urine Auto 0-5 /lpf (0-5); Glucose Urine UA Negative (Negative); Ketones Urine Negative (Negative); Leukocyte Esterase Urine 2+ (Negative); Nitrite Urine Positive (Negative); Protein Urine Negative (Negative); RBC Urine Automated 0-4 /hpf (0-4); Specific Gravity Urine 1.016 (1.000-1.030); Urobilinogen Urine Negative (Negative); WBC Urine Automated >30 /hpf (0-5); pH Urine 6.5 (4.5-7.5)
[2020-12-05 17:34] LABS: Mean Platelet Volume 10.3 fL (7.4-10.4); Platelet Count 93 K/uL (130-400)
[2020-12-05 17:38] LABS: Basophils # (auto) 0.03 K/uL (0-0.2); Basophils % (auto) 0.7 %; Eosinophils # (auto) 0.08 K/uL (0-0.5); Eosinophils % (auto) 1.8 %; Lymphocytes # (auto) 1.58 K/uL (1.2-3.4); Lymphocytes % (auto) 36.5 %; Monocytes # (auto) 0.42 K/uL (0.11-0.59); Monocytes % (auto) 9.7 %; Neutrophils # (auto) 2.22 K/uL (1.4-6.5); Neutrophils % (auto) 51.3 %; Polychromasia 1+
[2020-12-05 17:39] LABS: Alanine Aminotransferase 55 U/L (12-78); Albumin Level 2.8 gm/dl (3.4-5.0); Aspartate Aminotransferase 41 U/L (15-37); BUN Creatinine Ratio 26.3 (10-20); Blood Urea Nitrogen 17 mg/dl (7-18); Calcium 7.9 mg/dl (8.5-10.1); Carbon Dioxide 24 mmol/L (21-32); Chloride 122 mmol/L (98-107); Est GFR (African American) 117.9 ml/min; Est GFR (Non-African American) 101.7 ml/min; Glucose 110 mg/dl (70-99); Lipase 69 U/L (73-393); Potassium 3.5 mmol/L (3.5-5.1); Sodium 149 mmol/L (136-145)
[2020-12-05 17:41] LABS: Albumin Globulin Ratio 0.8 (0.9-2); Alkaline Phosphatase 175 U/L (45-117); Bilirubin,Total 2.1 mg/dl (0.2-1); Globulin 3.3 gm/dl (2.5-4.0); Total Protein 6.1 gm/dl (6.4-8.2)
[2020-12-05] MEDS ORDERED: UNIT DOSE COMPOUND PR STA (19:21)
[2020-12-05] MEDS ORDERED: LACTULOSE 200 GM, WATER, STERILE IRRIG 700 ML, BARCODE IDENTIFIER 1 EA PR STA (19:21)
--- NOTE | 2020-12-05 20:06 | History & Physical Report ---
Date of Service December 05, 2020 Assessment & Plan (1) Acute UTI: Plan: 1. Acute UTI - patient with complaint of foul smelling urine as well as incontinence. UA suggestive of infection. She is afebrile, HD stable. She is altered at this time which may be secondary to underlying infection. -Follow cultures, blood and urine sent in ER -Bactrim DS BID x 3 days for uncomplicated UTI. Patient has documented intolerance to Sulfa drugs, however, reaction is "dark stools". She should be able to tolerate this medication. 2. Hepatic encephalopathy: Patient with persistently elevated ammonia level. Ammonia =98.1 today. On exam patient is obtunded, not following commands. Hepatic encephalopathy may be playing a role in AMS. Patient has not taken her medications for the last day. -Lactulose enema ordered in ER -Continue Lactulose daily. May need NGT placement to deliver medications if mental status does not improve -Continue rifaximin 550 mg p.o. twice daily 3. Cirrhosis: Patient with liver cirrhosis secondary to STEVE, portal hypertension. Patient follows with gastroenterology, last seen by Dr. Toledo on 10/11/20. Patient had an EGD in June 2020 which showed no varices and mild portal-hypertensive gastropathy. Recent abdominal ultrasound with stable cirrhosis. HCV screening has been completed and is negative. AFP on 03/09/2019 = 2.6 -Check INR -Repeat LFTs in AM -Continue Lactulose -Continue Rifaximin 550 mg p.o. twice daily -Continue zinc supplementation 50 mg daily -Continue Pepcid 20mg po qHS - recently started by GI for complaint of nausea -Avoid hepatotoxic agents -Patient to have US in 1 year for HCC surveillance and EGD in 3 years for variceal screening. 4. Seizure disorder: Patient with history of seizure. She follows with neurology, last seen on 10/30/20 - follows for mixed tremor as well as dyskinesia and seizure history. EEG completed in May 2018 revealed a generalized spike and slow wave abnormality consistent with an underlying generalized seizure disorder. Patient had an MRI brain completed in October 2017 which was unremarkable. Patient failed VNS placement in the past, device was explanted. Presently on topiramate, Trileptal and Keppra. -Continue Ropinirole - was recently started by Neurology for tremors and dyskinesias. -Continue topiramate -Continue Trileptal -Continue Keppra 5. Diabetes: Patient with type 2 diabetes, well controlled, long-term use of insulin. Blood sugar today =110. Last hemoglobin A1c=5.6 on 05/23/20. Patient follows with Endocrinology/Diabetes education. Last seen on 11/15/20. -Continue Tresiba 30u -ISS -Goal blood sugar 100 - 140 -Recommend annual A1c monitoring -Followup with prosthodontist/educator outpatient as instructed Adrenal insufficiency - recenlty diagnosed -Continue Hydrocortisone -Patient follows with Endocrinology 6. Chronic gait disorder - patient mostly in wheelchair at home. -Fall precautions -Wheelchair and walker as needed -Assistance as needed with transfers and ambulation -Patient has home health nurse 7. Hypothyroidism - TSH=0.237 -Continue Synthroid 8. GERD- Chronic. Stable. -Continue Omeprazole 40mg po daily, Famotidine 40mg po daily 9. Depression - Chronic. Stable. Patient presently not on any medications. She has been evaluated by Psychiatry in the past. 10. Asthma - history of severe persistent asthma. She has seen Pulmonary as well as Allergy/Immunology in the past. Spirometry performed on 04/23/19 with FVC=1.37, 38% predicted. FEV1=1.18, 40% predicted and FEV1/FVC=86%. Suggestive of restrictive process vs obstruction with air trapping. Study limited. Formal PFTs ordered, not yet completed. Presently CTA, adequate oxygenation on room air, no concern for exacerbation at this time. -Continue Breo Ellipta -Continue Spiriva -Continue Albuterol PRN 11. Migraine: Patient with episodic migraines. Well-controlled. -Continue topiramate -Patient has used Maxalt in the past with success for migraine relief if needed 12. Tremor: Patient with coarse postural and action tremor. -Continue topiramate F/E/N - Heplock. Monitor electrolytes and replete as needed Ppx - Low risk for DVT. Code - Full per discussion with patient Dispo - Admit to medical floor (2) Hyperammonemia: (3) Pancytopenia: (4) Chronic hypernatremia: (5) Cirrhosis: (6) Major depressive disorder with psychotic features: (7) Peptic ulcer disease: (8) Controlled type 2 diabetes mellitus, with long-term current use of insulin: (9) Multiple drug allergies: (10) Hypothyroidism: (11) Seizure disorder: (12) Chronic liver disease and cirrhosis: (13) Altered mental status: History of Present Illness Chief Complaint: altered mental state Primary Care Provider: Jade Munson is a 54yo female with multiple medical problems presenting with altered mental status. Patient is known to the medical service. Patient was admitted to [facility] from 08/19/20 - 09/02/20 for infection of orthopedic hardware with enterococcus faecalis. She was also diagnosed with ACTH deficiency during that hospital stay and was started on steroid replacement th erapy. She was discharged to rehabilitation on 09/02/20 and completed 3 weeks of rehab. She is now living at home with her and has been doing fairly well. brings her today with complaint of minimal responsiveness. He reports that patient was doing well yesterday during the day. In the evening she became altered and minimally responsive. required assistance getting her into bed. Today she was unresponsive all day, did not take her medications and was unable to tolerate PO. She has been incontinent of urine for the last 2 days. Rommel is at bedside and states he is having difficulty taking care of her at home. ER Course: Lactulose enema Allergies Allergy/AdvReac Type Severity Reaction Status Date / Time metronidazole Allergy Severe SEIZURE Verified 11/30/20 15:14 tramadol Allergy Severe SEIZURES Verified 11/30/20 15:14 amoxicillin Allergy Intermediate SEE COMMENT Verified 11/30/20 15:14 baclofen Allergy Intermediate RASH Verified 11/30/20 15:14 butalbital Allergy Intermediate HIVES Verified 11/30/20 15:14 ceftriaxone [From Rocephin] Allergy Intermediate Hives Verified 11/30/20 15:14 dicyclomine Allergy Intermediate HIVES Verified 11/30/20 15:14 pollen extracts Allergy Intermediate Hives Verified 11/30/20 15:14 Sulfa (Sulfonamide Allergy Intermediate CAUSES Verified 11/30/20 15:14 Antibiotics) BLACK STOOLS Tetracyclines Allergy Intermediate DOXYCYCLINE Verified 11/30/20 15:14 -HIVES adhesive Allergy Mild RASH, Verified 11/30/20 15:14 DUODERM=RED,ITCHY celecoxib Allergy Mild HIVES Verified 11/30/20 15:14 sulindac Allergy Mild ALLERGY Verified 11/30/20 15:14 LISTED "CLONDORAL"--HIVES Cephalosporins AdvReac Severe TURNS Verified 11/30/20 15:14 STOOL VERY DARK levofloxacin [From Levaquin] AdvReac Severe Vomiting Verified 11/30/20 15:14 metoclopramide AdvReac Severe SEIZURES Verified 11/30/20 15:14 paroxetine [From Paxil] AdvReac Severe Vomiting Verified 11/30/20 15:14 dextromethorphan AdvReac Mild Vomiting Verified 11/30/20 15:14 Home Medications Medication Instructions Recorded Confirmed Type multivitamin (Multiple Vitamins) 1 tab PO QDL 12/26/17 12/05/20 History lactobacillus combination no.4 3 1 mmu cells PO QDL 09/20/18 12/05/20 History billion cell capsule (Probiotic) vitamin A 2,400 mcg capsule 8,000 unit PO QDL 09/20/18 12/05/20 History vitamin B complex 1 tab PO QDL 09/20/18 12/05/20 History zinc 50 mg tablet 50 mg PO QDL 02/09/19 12/05/20 History epinephrine 0.3 mg/0.3 mL 0.3 mg IM Q10M PRN 04/02/19 12/05/20 History injection, auto-injector (EpiPen 2-Garret) lecithin 1,200 mg capsule 1,200 mg PO QDL 04/29/19 12/05/20 History ipratropium 0.5 mg-albuterol 3 mg 3 ml INH QID PRN #90 ml 07/30/19 12/05/20 Rx (2.5 mg base)/3 mL nebulization soln nbreztibatmuzevsdqcrwm-edfchbxa-awrhkeqk 2 drops OP BID 10/31/19 12/05/20 History 80 0.5 %-1 %-0.5 % eye drops (Refresh Optive Advanced) acetaminophen 500 mg tablet 1,000 mg PO HS 01/09/20 12/05/20 History (Acetaminophen Extra Strength) calcium carbonate 500 mg calcium 500 mg PO DAILY 01/27/20 12/05/20 History (1,250 mg) tablet (Calcium 500) rimegepant 75 mg disintegrating 75 mg PO DAILY PRN 30 Days #8 tab 03/21/20 12/05/20 Rx tablet (Nurtec ODT) fexofenadine 60 mg tablet 60 mg PO QAM 04/12/20 12/05/20 History topiramate 100 mg tablet 100 mg PO BID #60 tab 05/17/20 12/05/20 Rx albuterol sulfate 90 mcg/actuation 2 puff INHALATION Q4H PRN #1 05/31/20 12/05/20 Rx aerosol inhaler inhaler cranberry 400 mg capsule 400 mg PO BID 06/08/20 12/05/20 History magnesium oxide 400 mg (241.3 mg 400 mg PO QAM 06/29/20 12/05/20 History magnesium) tablet rifaximin 550 mg tablet (Xifaxan) 550 mg PO BID #60 tab 07/24/20 12/05/20 Rx insulin aspart U-100 100 unit/mL 15 - 25 unit SQ TID #30 ml MDD 60 09/28/20 12/05/20 Rx (3 mL) subcutaneous pen (Novolog units Flexpen U-100 Insulin aspart) budesonide-formoterol HFA 160 2 puff INHALATION BID PRN inhaler 10/03/20 12/05/20 History mcg-4.5 mcg/actuation aerosol inhaler (Symbicort) insulin degludec 100 unit/mL (3 30 unit SUBCUT QAM ml 10/03/20 12/05/20 History mL) subcutaneous pen (Tresiba FlexTouch U-100 insulin) benztropine 1 mg tablet 1 mg PO TID 30 Days #90 tab 10/07/20 12/05/20 Rx promethazine 25 mg tablet 25 mg PO Q8H PRN #10 tab 10/11/20 12/05/20 Rx levetiracetam 750 mg tablet 1,500 mg PO BID 30 Days #120 tab 10/30/20 12/05/20 Rx lactulose 20 gram/30 mL oral 30 g PO ONCE PRN #1200 ml 10/31/20 12/05/20 Rx solution levothyroxine 50 mcg tablet 50 mcg PO QAM #30 tab 11/10/20 12/05/20 Rx (Euthyrox) omeprazole 40 mg capsule,delayed 40 mg PO QAM #90 cap 11/15/20 12/05/20 Rx release ascorbate calcium (vitamin C) 500 500 mg PO DAILY 11/16/20 12/05/20 History mg tablet famotidine 20 mg tablet 40 mg PO HS tab 11/16/20 12/05/20 History vitamin E (dl, acetate) 180 mg 180 mg PO Q OTHER DAY cap 11/16/20 12/05/20 History (400 unit) capsule ropinirole 0.25 mg tablet 0.25 mg PO HS 11/29/20 12/05/20 History cholecalciferol (vitamin D3) 25 5,000 unit PO DAILY cap 11/30/20 12/05/20 History mcg (1,000 unit) capsule (Vitamin D3) hydrocortisone 10 mg tablet See Rx Instructions .ROUTE 11/30/20 12/05/20 History .COMPLEX tab oxcarbazepine 300 mg tablet See Rx Instructions .ROUTE 11/30/20 12/05/20 History .COMPLEX tab pravastatin 20 mg tablet 20 mg PO QAM 12/05/20 12/05/20 History sulfamethoxazole 800 1 tab PO BID 10 Days #20 tab 12/05/20 Rx mg-trimethoprim 160 mg tablet (Bactrim DS) teriparatide 20 mcg/dose (620 20 mcg SUBCUT PM 12/05/20 12/05/20 History mcg/2.48 mL) subcutaneous pen injector (Forteo) Past Med/Surg History Medical History ACTH deficiency Chronic liver disease and cirrhosis Controlled type 2 diabetes mellitus, with long-term current use of insulin Depression Frequent falls See care alert special indicator. H/O osteoporotic pathological fracture Hepatic encephalopathy HX>ON XIFAXAN Hypothyroidism Migraine Myoclonic seizure "FREQUENT MYOCLONIC SEIZURES" FOLLOWS WITH DR. YANG Nonalcoholic fatty liver disease Pancytopenia Chronic. Follows with cancer center. Platelets have been > 100 since 10/2019, WNL on 05/23 labs. H/H stable in 8-10 range. Parkinsonism Secondary adrenal insufficiency Seizure disorder (05/26/11) + PSEUDOSEIZURES Sleepiness Suicidal ideation DENIES ANY CURRENT PROBLEM Surgical History Femur fracture, right SPIRAL FRACTURE REPAIRED (HARDWARE REPAIRED) History of ankle surgery RT/LEFT History of appendectomy History of cholecystectomy History of colonoscopy History of esophagogastroduodenoscopy (EGD) History of kyphoplasty History of open reduction and internal fixation (ORIF) procedure RT HIP History of surgery (~06/02/20) screw/plate removal from left humerus History of surgery on arm LEFT (HARDWARE INTACT) History of tooth extraction History of vascular access device right A port Hx of carpal tunnel repair RT/LEFT Hx of cataract extraction RT/LEFT S/P laminectomy lumbar spine S/P nasal surgery nasal bone fracture repair S/P NORBERTO (1997) Family History Other Adopted No pertinent family history Social History Smoking Status: Never smoker Tobacco Type: Cigarettes Second Hand Exposure: No; Hx Alcohol Use: No Hx Substance Use: No Preferred Language: Tajik Communication Ability: Effective Visual Impairment: No Limitations Field Technician Required: No Beliefs That Will Affect Care: None marital status: Current Living Situation: Spouse Current Living Situation Comment: Lives with Benny current occupational status: unemployed and disabled How many Children do You have: 0 Feels Safe at Home: Yes Seatbelt Use: always Assistive Devices: Denture - Upper, Denture - Lower, Glasses, Nebulizer and Wheelchair Review of Systems Review of Systems: Unobtainable due to cognitive status Physical Exam Physical Exam: General: patient minimally responsive, will look at me, does not answer questions or follow commands Skin: warm, dry, intact, no rashes or lesions HEENT: NC/AT, PERRL, anicteric sclera, conjunctiva without injection, external ear normal to inspection and nontender, nares patent, dry lips and mucus membranes, edentulous, no oropharyngeal lesions, neck supple, trachea midline, no LAD, no thyromegaly, no JVD Heart: +S1/S2, regular, no m/r/g, right chest port Lungs: equal air entry bilaterally, no rales/rhonchi/wheezes Abd: +BS, soft, NT/ND, no masses/organomegaly/ascites Ext: warm, 2+ pulses in UE/LE bilaterally, no clubbing/cyanosis or edema Neuro: patient is nonverbal, does not follow commands, tracks with eyes occasionally Results & Data Results & Data ([facility]) Vital Signs (Past 12 Hours) Vital Signs Temp Pulse Resp BP Pulse Ox 12/05/20 18:50 36.7 C 12/05/20 18:30 66 25 H 149/75 H 98 12/05/20 18:00 64 22 169/73 H 98 12/05/20 17:30 61 20 171/75 H 98 12/05/20 13:34 72 16 121/70 95 Laboratory Results Laboratory Results WBC 4.33 K/uL (4.8-10.8) L 12/05/20 17:10 RBC 3.32 M/uL (4.2-5.4) L 12/05/20 17:10 Hgb 12.3 g/dL (12.0-16.0) 12/05/20 17:10 Hct 35.2 % (37-47) L 12/05/20 17:10 MCV 106.0 fL (80-100) H 12/05/20 17:10 MCH 37.0 pg (25-34) H 12/05/20 17:10 MCHC 34.9 g/dL (32-36) 12/05/20 17:10 RDW Std Deviation 58.7 fL (36.4-46.3) H 12/05/20 17:10 RDW Coeff of Irnia 15.2 % (11.5-14.5) H 12/05/20 17:10 Plt Count 93 K/uL (130-400) L 12/05/20 17:10 MPV 10.3 fL (7.4-10.4) 12/05/20 17:10 Immature Gran % (Auto) 0.0 % 12/05/20 17:10 Neut % (Auto) 51.3 % 12/05/20 17:10 Lymph % (Auto) 36.5 % 12/05/20 17:10 [place] % (Auto) 9.7 % 12/05/20 17:10 Eos % (Auto) 1.8 % 12/05/20 17:10 Baso % (Auto) 0.7 % 12/05/20 17:10 Neut # (Auto) 2.22 K/uL (1.4-6.5) 12/05/20 17:10 Lymph # (Auto) 1.58 K/uL (1.2-3.4) 12/05/20 17:10 [place] # (Auto) 0.42 K/uL (0.11-0.59) 12/05/20 17:10 Eos # (Auto) 0.08 K/uL (0-0.5) 12/05/20 17:10 Baso # (Auto) 0.03 K/uL (0-0.2) 12/05/20 17:10 Immature Gran # (Auto) 0.00 K/uL (0.00-0.02) 12/05/20 17:10 Polychromasia 1+ 12/05/20 17:10 Sodium 149 mmol/L (136-145) H 12/05/20 17:10 Potassium 3.5 mmol/L (3.5-5.1) 12/05/20 17:10 Chloride 122 mmol/L (98-107) H 12/05/20 17:10 Carbon Dioxide 24 mmol/L (21-32) 12/05/20 17:10 Anion Gap 3.0 (3-11) 12/05/20 17:10 BUN 17 mg/dl (7-18) 12/05/20 17:10 Creatinine 0.63 mg/dl (0.6-1.2) 12/05/20 17:10 Est Cr Clr Drug Dosing Not Reportable 12/05/20 17:10 Est GFR ( Amer) 117.9 ml/min 12/05/20 17:10 Est GFR (Non-Af Amer) 101.7 ml/min 12/05/20 17:10 BUN/Creatinine Ratio 26.3 (10-20) H 12/05/20 17:10 Glucose 110 mg/dl (70-99) H 12/05/20 17:10 Lactate 0.7 mmol/L (0.4-2.0) 12/05/20 19:21 Calcium 7.9 mg/dl (8.5-10.1) L 12/05/20 17:10 Total Bilirubin 2.1 mg/dl (0.2-1) H 12/05/20 17:10 AST 41 U/L (15-37) H 12/05/20 17:10 ALT 55 U/L (12-78) 12/05/20 17:10 Alkaline Phosphatase 175 U/L (45-117) H 12/05/20 17:10 Ammonia 98.1 umol/L (11-32) H 12/05/20 17:10 Total Protein 6.1 gm/dl (6.4-8.2) L 12/05/20 17:10 Albumin 2.8 gm/dl (3.4-5.0) L 12/05/20 17:10 Globulin 3.3 gm/dl (2.5-4.0) 12/05/20 17:10 Albumin/Globulin Ratio 0.8 (0.9-2) L 12/05/20 17:10 Lipase 69 U/L (73-393) L 12/05/20 17:10 Urine Color Dark Yellow 12/05/20 17:00 Urine Appearance Cloudy (Clear) A 12/05/20 17:00 Urine pH 6.5 (4.5-7.5) 12/05/20 17:00 Ur Specific [place] 1.016 (1.000-1.030) 12/05/20 17:00 Urine Protein Negative (Negative) 12/05/20 17:00 Urine Glucose (UA) Negative (Negative) 12/05/20 17:00 Urine Ketones Negative (Negative) 12/05/20 17:00 Urine Blood Negative (Negative) 12/05/20 17:00 Urine Nitrite Positive (Negative) A 12/05/20 17:00 Urine Bilirubin Negative (Negative) 12/05/20 17:00 Urine Urobilinogen Negative (Negative) 12/05/20 17:00 Ur Leukocyte Esterase 2+ (Negative) H 12/05/20 17:00 Urine WBC (Auto) >30 /hpf (0-5) H 12/05/20 17:00 Urine RBC (Auto) 0-4 /hpf (0-4) 12/05/20 17:00 U Hyaline Cast (Auto) 10-30 /lpf (0-5) H 12/05/20 17:00 U Epithel Cells (Auto) 0-5 /lpf (0-5) 12/05/20 17:00 Urine Bacteria (Auto) 4+ (Negative) H 12/05/20 17:00 COVID-19 Eval Order Covid19 at [facility] 12/05/20 19:31 PG Care Time/CCT Total # of Minutes Spent Total Time Spent with Patient: Total time spent is greater than 50% in coordination of care (as documented) at patient's floor/unit and/or counseling patient: Coding Level of Care Code INT OBSERVATION CARE 70M LVL 3 Diagnoses Acute UTI N39.0 Hyperammonemia E72.20 Pancytopenia D61.818 Chronic hypernatremia E87.0 Cirrhosis K74.60 Major depressive disorder with psychotic features F32.3 Peptic ulcer disease K27.9 Controlled type 2 diabetes mellitus, with long-term current use of insulin E11.69; Z79.4 Diabetes mellitus complication status: with other specified complication Multiple drug allergies Z88.9 Hypothyroidism E03.9 Hypothyroidism type: unspecified Seizure disorder G40.909 Chronic liver disease and cirrhosis K74.60; K76.9 Altered mental status R41.82 (1) Hypothyroidism Hypothyroidism type: unspecified Qualified Code(s): E03.9 - Hypothyroidism, unspecified (2) Controlled type 2 diabetes mellitus, with long-term current use of insulin Diabetes mellitus complication status: with other specified complication Qualified Code(s): E11.69 - Type 2 diabetes mellitus with other specified complication; Z79.4 - 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
[2020-12-05] MEDS ORDERED: GLUCAGON FOR INJ 1 MG VIAL SQ PRN (22:47)
[2020-12-05] MEDS ORDERED: ALBUTEROL HFA 8 GM INHALER INH PRN (22:47)
[2020-12-05] MEDS ORDERED: CARBOHYDRATES FOR HYPOGLYCEMIA PO PRN (22:47)
[2020-12-05] MEDS ORDERED: LACTULOSE SYRUP 20 GM/30 ML UDC PO PRN (22:47)
[2020-12-05] MEDS ORDERED: ALBUT/IPRATROP 3MG/0.5MG NEB 3 ML VIAL INH PRN (22:47)
[2020-12-05] MEDS ORDERED: GLUCOSE 40% GEL 15 GM TUBE PO PRN (22:47)
[2020-12-05] MEDS ORDERED: GLUCOSE 10 TABS/TUBE PO PRN (22:47)
[2020-12-05] MEDS ORDERED: DEXTROSE 50% 50 ML SYRINGE IV PRN (22:47)
[2020-12-05 23:11] LABS: Magnesium 1.7 mg/dl (1.8-2.4); Phosphorus 3.1 mg/dl (2.5-4.9)
[2020-12-05] MEDS: LACTATED RINGER'S 1,000 ML IV SCH (23:36)
[2020-12-05] MEDS: FAMOTIDINE 40 MG TABLET PO SCH (23:46)
[2020-12-05] MEDS: levETIRAcetam 500 MG TAB PO SCH (23:46)
[2020-12-05] MEDS: rifAXIMin 550 MG TABLET PO SCH (23:46)
[2020-12-05] MEDS: HYDROCORTISONE 10 MG TAB PO SCH (23:46)
[2020-12-05] MEDS: OXcarbazepine 150 MG TABLET PO SCH (23:46)
[2020-12-05] MEDS: rOPINIRole HCL 0.25 MG TABLET PO SCH (23:46)
[2020-12-05] MEDS: TOPIRAMATE 100 MG TAB PO SCH (23:46)
[2020-12-05] MEDS: ACETAMINOPHEN 500 MG TAB PO SCH (23:46)
[2020-12-05] MEDS: SULFAMETHOXAZOLE/TRIMETHOPRIM DS 800/160MG TAB PO SCH (23:46)
[2020-12-05] MEDS: BENZTROPINE MESYLATE 1 MG TAB PO SCH (23:46)
[2020-12-05] MEDS: ARTIFICIAL TEARS OP SCH (23:47)
[2020-12-05] MEDS: INSULIN ASPART 100 UNITS/ML 3 ML PEN SC SCH (23:47)
[2020-12-06] MEDS: LEVOTHYROXINE SODIUM 50 MCG TABLET PO SCH (05:26)
[2020-12-06] MEDS: INSULIN ASPART 100 UNITS/ML 3 ML PEN SC SCH ×4 (05:49→21:37)
[2020-12-06 07:33] LABS: Hematocrit (blood only) 31.3 % (37-47); Hemoglobin 11.1 g/dL (12.0-16.0); Mean Corpuscular Hgb Conc 35.5 g/dL (32-36); Mean Corpuscular Volume 104.3 fL (80-100); RDW Coefficient of Variation 15.3 % (11.5-14.5); White Blood Count 3.66 K/uL (4.8-10.8)
[2020-12-06 07:38] LABS: Mean Platelet Volume 10.3 fL (7.4-10.4); Platelet Count 83 K/uL (130-400)
[2020-12-06 07:49] LABS: INR 1.3 (0.9-1.1); Prothrombin Time 13.2 Seconds (9.0-12.0)
--- NOTE | 2020-12-06 07:53 | Hospitalist Progress Note ---
Date of Service December 06, 2020 Assessment & Plan (1) Acute UTI: Plan: 1. Acute UTI - patient with complaint of foul smelling urine as well as incontinence. UA suggestive of infection. -Follow cultures, blood and urine culture, gram negative infection -Bactrim DS BID x 3 days for uncomplicated UTI. Patient has documented intolerance to Sulfa drugs, however, reaction is "dark stools". 2. Hepatic encephalopathy: Patient with persistently elevated ammonia level. Ammonia =98.1 today. toxic encephalopathy secondary to ammonia, maybe secondary to metabolic encephalopahty from uti poa Patient has not taken her medications for at least a day prior to admission -Lactulose enema ordered in ER -Continue Lactulose daily. -Continue rifaximin 550 mg p.o. twice daily 3. Cirrhosis: Patient with liver cirrhosis secondary to STEVE, portal hypertension. Patient follows with gastroenterology, last seen by Dr. Toledo on 10/11/20. Patient had an EGD in June 2020 which showed no varices and mild portal-hypertensive gastropathy. Recent abdominal ultrasound with stable cirrhosis. HCV screening has been completed and is negative. AFP on 03/09/2019 = 2.6 -Continue Lactulose -Continue Rifaximin 550 mg p.o. twice daily -Continue zinc supplementation 50 mg daily -Continue Pepcid 20mg po qHS - recently started by GI for complaint of nausea -Avoid hepatotoxic agents -Patient to have US in 1 year for HCC surveillance and EGD in 3 years for variceal screening. 4. Seizure disorder: Patient with history of seizure. She follows with neurology, last seen on 10/30/20 - follows for mixed tremor as well as dyskinesia and seizure history. EEG completed in May 2018 revealed a generalized spike and slow wave abnormality consistent with an underlying generalized seizure disorder. Patient had an MRI brain completed in October 2017 which was unremar kable. Patient failed VNS placement in the past, device was explanted. Presently on topiramate, Trileptal and Keppra. -Continue Ropinirole - was recently started by Neurology for tremors and dyskin esias. -Continue topiramate -Continue Trileptal -Continue Keppra 5. Diabetes: Patient with type 2 diabetes, well controlled, long-term use of insulin. Blood sugar today =110. Last hemoglobin A1c=5.6 on 05/23/20. Patient follows with Endocrinology/Diabetes education. Last seen on 11/15/20. -Continue Tresiba 30u -ISS -Goal blood sugar 100 - 140 Adrenal insufficiency - recently diagnosed -Continue Hydrocortisone -Patient follows with Endocrinology 6. Chronic gait disorder - patient mostly in wheelchair at home. -Fall precautions -Wheelchair and walker as needed -Assistance as needed with transfers and ambulation -Patient has home health nurse 7. Hypothyroidism - TSH=0.237 -Continue Synthroid 8. GERD- Chronic. Stable. -Continue Omeprazole 40mg po daily, Famotidine 40mg po daily 9. Depression - Chronic. Stable. Patient presently not on any medications. She has been evaluated by Psychiatry in the past. 10. Asthma - history of severe persistent asthma. She has seen Pulmonary as well as Allergy/Immunology in the past. Spirometry performed on 04/23/19 with FVC=1.37, 38% predicted. FEV1=1.18, 40% predicted and FEV1/FVC=86%. Suggestive of restrictive process vs obstruction with air trapping. Study limited. Formal PFTs ordered, not yet completed. Presently CTA, adequate oxygenation on room air, no concern for exacerbation at this time. -Continue Breo Ellipta -Continue Spiriva -Continue Albuterol PRN 11. Migraine: Patient with episodic migraines. Well-controlled. -Continue topiramate -Patient has used Maxalt in the past with success for migraine relief if needed 12. Tremor: Patient with coarse postural and action tremor. -Continue topiramate F/E/N - Heplock. Monitor electrolytes and replete as needed Ppx - Low risk for DVT. Code - Full per discussion with patient (2) Hyperammonemia: (3) Pancytopenia: (4) Chronic hypernatremia: (5) Cirrhosis: (6) Major depressive disorder with psychotic features: (7) Peptic ulcer disease: (8) Controlled type 2 diabetes mellitus, with long-term current use of insulin: (9) Multiple drug allergies: (10) Hypothyroidism: (11) Seizure disorder: (12) Chronic liver disease and cirrhosis: (13) Altered mental status: Admission and Anticipated Discharge Date Admission Date: December 05, 2020 Subjective Patient's bright alert back to her normal self cannot recall an event that may be precipitated her hepatic encephalopathy. Review of Systems Review of Systems: Mild distress and fatigue no headache, no visual changes no speech or swallowing issues no chest pain, pressure or palpitations no shortness of breath, cough or wheezes no abdominal pain, nausea or vomiting, diarrhea or constipation no dysuria, hematuria or frequency no focal joint pain or swelling no back pain, CVA tenderness or radicular pain no bruising, bleeding or rashes no focal signs of weakness or numbness or altered sensation tremor and weakness no complaints of anxiety or depression.. Physical Exam Physical Exam: The patient appeared well nourished and normally developed. Vital signs as documented. Head exam is normocephalic some ecchymosis to the Neck is without JVD, thyromegaly, or carotid bruits. Lungs are clear to auscultation, no focal loss of breath sounds Cardiac exam, Rhythm is regular.. No murmurs, rubs or gallops. Abdominal exam reveals normal bowel sounds, soft non tender, no masses Extremities are nonedematous and both pedal pulses are present Neurologic exam is alert and oriented, no focal loss of strength or sensation Skin is without bruises or rashes Psychologically is without concerns for anxiety or depression Results & Data Results & Data ([facility]) Vital Signs (Past 12 Hours) Vital Signs Temp Pulse Pulse Resp BP Pulse Ox 12/06/20 07:32 97.7 F 68 16 158/78 H 97 12/05/20 22:10 63 16 92 12/05/20 22:00 62 17 96 12/05/20 21:50 66 16 97 12/05/20 21:45 97.9 F 58 L 16 119/76 97 12/05/20 21:40 66 19 95 12/05/20 21:30 64 19 92 12/05/20 21:20 65 27 H 97 12/05/20 21:10 60 17 98 12/05/20 21:00 62 17 98 12/05/20 20:50 63 18 97 12/05/20 20:40 64 29 H 97 12/05/20 20:30 62 20 98 12/05/20 20:20 61 12 98 12/05/20 20:10 62 14 98 12/05/20 20:00 63 20 100 PG Care Time/CCT Total # of Minutes Spent Total Time Spent with Patient: Total time spent is greater than 50% in coordination of care (as documented) at patient's floor/unit and/or counseling patient: Coding Level of Care Code 85542 Subseq Hosp Care Lvl 3 Diagnoses Acute UTI N39.0 Hyperammonemia E72.20 Pancytopenia D61.818 Chronic hypernatremia E87.0 Cirrhosis K74.60 Major depressive disorder with psychotic features F32.3 Peptic ulcer disease K27.9 Controlled type 2 diabetes mellitus, with long-term current use of insulin E11.69; Z79.4 Diabetes mellitus complication status: with other specified complication Multiple drug allergies Z88.9 Hypothyroidism E03.9 Hypothyroidism type: unspecified Seizure disorder G40.909 Chronic liver disease and cirrhosis K74.60; K76.9 Altered mental status R41.82 (1) Hypothyroidism Hypothyroidism type: unspecified Qualified Code(s): E03.9 - Hypothyroidism, unspecified (2) Controlled type 2 diabetes mellitus, with long-term current use of insulin Diabetes mellitus complication status: with other specified complication Qualified Code(s): E11.69 - Type 2 diabetes mellitus with other specified complication; 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
[2020-12-06 08:04] LABS: Basophils # (auto) 0.02 K/uL (0-0.2); Basophils % (auto) 0.5 %; Eosinophils # (auto) 0.05 K/uL (0-0.5); Eosinophils % (auto) 1.4 %; Lymphocytes # (auto) 1.41 K/uL (1.2-3.4); Lymphocytes % (auto) 38.5 %; Monocytes # (auto) 0.36 K/uL (0.11-0.59); Monocytes % (auto) 9.8 %; Neutrophils # (auto) 1.82 K/uL (1.4-6.5); Neutrophils % (auto) 49.8 %
[2020-12-06 08:26] LABS: Albumin Level 2.6 gm/dl (3.4-5.0); BUN Creatinine Ratio 30.7 (10-20); Bilirubin Direct 0.6 mg/dl (0-0.2); Bilirubin,Total 2.2 mg/dl (0.2-1); Calcium 8.2 mg/dl (8.5-10.1); Creatinine Clr Calc Pharmacy 113.5 ml/min; Est GFR (African American) 126.3 ml/min; Potassium 3.6 mmol/L (3.5-5.1); Total Protein 5.5 gm/dl (6.4-8.2)
[2020-12-06] MEDS ORDERED: Nursing to Pharmacy Communication SCH (08:45)
[2020-12-06] MEDS: INSULIN GLARGINE SOLOSTAR 100 UNITS/ML 3 ML PEN SC SCH (09:47)
[2020-12-06] MEDS: ARTIFICIAL TEARS OP SCH ×2 (09:51→20:19)
[2020-12-06] MEDS: BENZTROPINE MESYLATE 1 MG TAB PO SCH ×3 (09:51→20:15)
[2020-12-06] MEDS: HYDROCORTISONE 10 MG TAB PO SCH ×2 (09:52→20:15)
[2020-12-06] MEDS: FLUTICASONE/VILANTEROL 200/25MCG 14 PUFFS/INHALER INH SCH (09:53)
[2020-12-06] MEDS: OXcarbazepine 150 MG TABLET PO SCH ×2 (09:54→20:17)
[2020-12-06] MEDS: PANTOprazole 40 MG TAB PO SCH (09:55)
[2020-12-06] MEDS: rifAXIMin 550 MG TABLET PO SCH ×2 (09:55→20:17)
[2020-12-06] MEDS: TOPIRAMATE 100 MG TAB PO SCH ×2 (09:55→20:18)
[2020-12-06] MEDS: SULFAMETHOXAZOLE/TRIMETHOPRIM DS 800/160MG TAB PO SCH ×2 (09:55→20:18)
[2020-12-06] MEDS: levETIRAcetam 500 MG TAB PO SCH ×2 (09:56→20:15)
[2020-12-06] MEDS: FEXOFENADINE 60 MG TAB PO SCH (09:56)
[2020-12-06] MEDS: MAGNESIUM OXIDE 400 MG TAB PO SCH (09:57)
[2020-12-06] MEDS: PRAVASTATIN SOD 20 MG TAB PO SCH (09:57)
[2020-12-06] MEDS: LACTATED RINGER'S 1,000 ML IV SCH (12:00)
[2020-12-06] MEDS: ZINC SULFATE 220 MG CAPSULE PO SCH (12:02)
[2020-12-06] MEDS: ACETAMINOPHEN 500 MG TAB PO SCH (20:14)
[2020-12-06] MEDS: FAMOTIDINE 40 MG TABLET PO SCH (20:15)
[2020-12-06] MEDS: rOPINIRole HCL 0.25 MG TABLET PO SCH (20:18)
[2020-12-07] MEDS: LEVOTHYROXINE SODIUM 50 MCG TABLET PO SCH (06:04)
[2020-12-07] MEDS: INSULIN ASPART 100 UNITS/ML 3 ML PEN SC SCH ×4 (09:09→20:57)
[2020-12-07] MEDS: INSULIN GLARGINE SOLOSTAR 100 UNITS/ML 3 ML PEN SC SCH (09:10)
[2020-12-07] MEDS: ARTIFICIAL TEARS OP SCH ×2 (09:13→20:56)
[2020-12-07] MEDS: HYDROCORTISONE 10 MG TAB PO SCH ×2 (09:13→20:54)
[2020-12-07] MEDS: TOPIRAMATE 100 MG TAB PO SCH ×2 (09:14→20:56)
[2020-12-07] MEDS: SULFAMETHOXAZOLE/TRIMETHOPRIM DS 800/160MG TAB PO SCH (09:14)
[2020-12-07] MEDS: rifAXIMin 550 MG TABLET PO SCH ×2 (09:14→20:55)
[2020-12-07] MEDS: levETIRAcetam 500 MG TAB PO SCH ×2 (09:15→20:55)
[2020-12-07] MEDS: PANTOprazole 40 MG TAB PO SCH (09:15)
[2020-12-07] MEDS: OXcarbazepine 150 MG TABLET PO SCH ×2 (09:15→20:59)
[2020-12-07] MEDS: BENZTROPINE MESYLATE 1 MG TAB PO SCH ×3 (09:15→20:54)
[2020-12-07] MEDS: FEXOFENADINE 60 MG TAB PO SCH (09:16)
[2020-12-07] MEDS: MAGNESIUM OXIDE 400 MG TAB PO SCH (09:16)
[2020-12-07] MEDS: FLUTICASONE/VILANTEROL 200/25MCG 14 PUFFS/INHALER INH SCH (09:16)
[2020-12-07] MEDS: PRAVASTATIN SOD 20 MG TAB PO SCH (09:16)
[2020-12-07] MEDS: ZINC SULFATE 220 MG CAPSULE PO SCH (11:04)
[2020-12-07] MEDS ORDERED: LACTULOSE SYRUP 30 GM/45 ML UDP PO STA (16:33)
[2020-12-07] MEDS: HYDROCORTISONE SOD 50 MG in SYRINGE 0 ML IV SCH (18:14)
[2020-12-07] MEDS: HEPARIN 100 UNIT/ML 5ML FLUSH FLUSH PRN (18:17)
[2020-12-07] MEDS: FAMOTIDINE 40 MG TABLET PO SCH (20:54)
[2020-12-07] MEDS: ACETAMINOPHEN 500 MG TAB PO SCH (20:54)
[2020-12-07] MEDS: LACTULOSE SYRUP 20 GM/30 ML UDC PO SCH (20:56)
[2020-12-07] MEDS: rOPINIRole HCL 0.25 MG TABLET PO SCH (20:56)
--- NOTE | 2020-12-07 21:04 | Hospitalist Progress Note ---
Date of Service December 07, 2020 Assessment & Plan (1) Acute UTI: Plan: 1. Acute UTI - patient with complaint of foul smelling urine as well as incontinence. UA suggestive of infection. -Follow cultures, blood and urine culture, gram negative infection -pt is on ceftriaxone daily 2. Hepatic encephalopathy: Patient with persistently elevated ammonia level. Ammonia =98.1 today. toxic encephalopathy secondary to ammonia, maybe secondary to metabolic enceph alopahty from uti poa Patient has not taken her medications for at least a day prior to admission -Lactulose enema ordered in ER -Continue Lactulose daily. restarted at tid -Continue rifaximin 550 mg p.o. twice daily - if she does wake up consider medication affects 3. Cirrhosis: Patient with liver cirrhosis secondary to STEVE, portal hypertension. Patient follows with gastroenterology, last seen by Dr. Toledo on 10/11/20. Patient had an EGD in June 2020 which showed no varices and mild portal-hypertensive gastropathy. Recent abdominal ultrasound with stable cirrhosis. HCV screening has been completed and is negative. AFP on 03/09/2019 = 2.6 -Continue Lactulose -Continue Rifaximin 550 mg p.o. twice daily -Continue zinc supplementation 50 mg daily -Continue Pepcid 20mg po qHS - recently started by GI for complaint of nausea -Avoid hepatotoxic agents -Patient to have US in 1 year for HCC surveillance and EGD in 3 years for variceal screening. 4. Seizure disorder: Patient with history of seizure. She follows with neurology, last seen on 10/30/20 - follows for mixed tremor as well as dyskinesia and seizure history. EEG completed in May 2018 revealed a generalized spike and slow wave abnormality consistent with an underlying generalized seizure disorder. Patient had an MRI brain completed in October 2017 which was unremarkable. Patient failed VNS placement in the past, device was explanted. Presently on topiramate, Trileptal and Keppra. -Continue Ropinirole - was recently started by Neurology for tremors and dyskinesias. -Continue topiramate -Continue Trileptal -Continue Keppra 5. Diabetes: Patient with type 2 diabetes, well controlled, long-term use of insulin. Blood sugar today =110. Last hemoglobin A1c=5.6 on 05/23/20. Patient follows with Endocrinology/Diabetes education. Last seen on 11/15/20. -Continue Tresiba 30u -ISS -Goal blood sugar 100 - 140 Adrenal insufficiency - recently diagnosed -Continue Hydrocortisone -Patient follows with Endocrinology 6. Chronic gait disorder - patient mostly in wheelchair at home. -Fall precautions -Wheelchair and walker as needed -Assistance as needed with transfers and ambulation -Patient has home health nurse 7. Hypothyroidism - TSH=0.237 -Continue Synthroid 8. GERD- Chronic. Stable. -Continue Omeprazole 40mg po daily, Famotidine 40mg po daily 9. Depression - Chronic. Stable. Patient presently not on any medications. She has been evaluated by Psychiatry in the past. 10. Asthma - history of severe persistent asthma. She has seen Pulmonary as well as Allergy/Immunology in the past. Spirometry performed on 04/23/19 with FVC=1.37, 38% predicted. FEV1=1.18, 40% predicted and FEV1/FVC=86%. Suggestive of restrictive process vs obstruction with air trapping. Study limited. Formal PFTs ordered, not yet completed. Presently CTA, adequate oxygenation on room air, no concern for exacerbation at this time. -Continue Breo Ellipta -Continue Spiriva -Continue Albuterol PRN 11. Migraine: Patient with episodic migraines. Well-controlled. -Continue topiramate -Patient has used Maxalt in the past with success for migraine relief if needed 12. Tremor: Patient with coarse postural and action tremor. -Continue topiramate F/E/N - Heplock. Monitor electrolytes and replete as needed Code - Full per discussion with patient (2) Hyperammonemia: (3) Pancytopenia: (4) Chronic hypernatremia: (5) Cirrhosis: (6) Major depressive disorder with psychotic features: (7) Peptic ulcer disease: (8) Controlled type 2 diabetes mellitus, with long-term current use of insulin: (9) Multiple drug allergies: (10) Hypothyroidism: (11) Seizure disorder: (12) Chronic liver disease and cirrhosis: (13) Altered mental status: Admission and Anticipated Discharge Date Admission Date: December 07, 2020 Subjective Patient's is sedate today and did not have appropriate does of her lactulose ordered . I did add doses and will check ammonia in am Review of Systems Review of Systems: Mild distress and fatigue no headache, no visual changes no speech or swallowing issues no chest pain, pressure or palpitations no shortness of breath, cough or wheezes no abdominal pain, nausea or vomiting, diarrhea or constipation no dysuria, hematuria or frequency no focal joint pain or swelling no back pain, CVA tenderness or radicular pain no bruising, bleeding or rashes no focal signs of weakness or numbness or altered sensation tremor and weakness no complaints of anxiety or depression.. Physical Exam Physical Exam: The patient appeared well nourished and normally developed. Vital signs as documented. Head exam is normocephalic some ecchymosis to the Neck is without JVD, thyromegaly, or carotid bruits. Lungs are clear to auscultation, no focal loss of breath sounds Cardiac exam, Rhythm is regular.. No murmurs, rubs or gallops. Abdominal exam reveals normal bowel sounds, soft non tender, no masses Extremities are nonedematous and both pedal pulses are present Neurologic exam is alert and oriented, no focal loss of strength or sensation Skin is without bruises or rashes Psychologically is without concerns for anxiety or depression Results & Data Results & Data ([facility]) Vital Signs (Past 12 Hours) Vital Signs Temp Pulse Resp BP Pulse Ox 12/07/20 15:49 97.9 F 90 17 139/60 95 PG Care Time/CCT Total # of Minutes Spent Total Time Spent with Patient: Total time spent is greater than 50% in coordination of care (as documented) at patient's floor/unit and/or counseling patient: Coding Level of Care Code 97802 Subseq Hosp Care Lvl 2 Diagnoses Acute UTI N39.0 Hyperammonemia E72.20 Pancytopenia D61.818 Chronic hypernatremia E87.0 Cirrhosis K74.60 Major depressive disorder with psychotic features F32.3 Peptic ulcer disease K27.9 Controlled type 2 diabetes mellitus, with long-term current use of insulin E11.69; Z79.4 Diabetes mellitus complication status: with other specified complication Multiple drug allergies Z88.9 Hypothyroidism E03.9 Hypothyroidism type: unspecified Seizure disorder G40.909 Chronic liver disease and cirrhosis K74.60; K76.9 Altered mental status R41.82 (1) Hypothyroidism Hypothyroidism type: unspecified Qualified Code(s): E03.9 - Hypothyroidism, unspecified (2) Controlled type 2 diabetes mellitus, with long-term current use of insulin Diabetes mellitus complication status: with other specified complication Qualified Code(s): E11.69 - Type 2 diabetes mellitus with other specified complication; Z79.4 - longterm (current) use of insulin
[2020-12-08] MEDS: HEPARIN 100 UNIT/ML 5ML FLUSH FLUSH PRN ×2 (00:47→10:47)
[2020-12-08] MEDS: HYDROCORTISONE SOD 50 MG in SYRINGE 0 ML IV SCH ×2 (00:47→09:40)
[2020-12-08 04:31] LABS: Albumin Level 2.4 gm/dl (3.4-5.0); Bilirubin Direct 0.5 mg/dl (0-0.2); Bilirubin,Total 1.7 mg/dl (0.2-1); Total Protein 5.3 gm/dl (6.4-8.2)
[2020-12-08] MEDS: LEVOTHYROXINE SODIUM 50 MCG TABLET PO SCH (06:01)
[2020-12-08] MEDS: ARTIFICIAL TEARS OP SCH (08:56)
[2020-12-08] MEDS: BENZTROPINE MESYLATE 1 MG TAB PO SCH ×2 (08:57→14:31)
[2020-12-08] MEDS ORDERED: cefTRIAXone SODIUM 2,000 MG in DEXTROSE 5% 50 ML IV SCH (09:00)
[2020-12-08] MEDS: FLUTICASONE/VILANTEROL 200/25MCG 14 PUFFS/INHALER INH SCH (09:00)
[2020-12-08] MEDS: LACTULOSE SYRUP 20 GM/30 ML UDC PO SCH (09:01)
[2020-12-08] MEDS: levETIRAcetam 500 MG TAB PO SCH (09:02)
[2020-12-08] MEDS: MAGNESIUM OXIDE 400 MG TAB PO SCH (09:04)
[2020-12-08] MEDS: OXcarbazepine 150 MG TABLET PO SCH (09:06)
[2020-12-08] MEDS: PANTOprazole 40 MG TAB PO SCH (09:07)
[2020-12-08] MEDS: rifAXIMin 550 MG TABLET PO SCH (09:08)
[2020-12-08] MEDS: PRAVASTATIN SOD 20 MG TAB PO SCH (09:08)
[2020-12-08] MEDS: TOPIRAMATE 100 MG TAB PO SCH (09:09)
[2020-12-08] MEDS: FEXOFENADINE 60 MG TAB PO SCH (09:27)
[2020-12-08] MEDS: INSULIN GLARGINE SOLOSTAR 100 UNITS/ML 3 ML PEN SC SCH (09:29)
[2020-12-08] MEDS: INSULIN ASPART 100 UNITS/ML 3 ML PEN SC SCH ×2 (09:33→12:18)
[2020-12-08] MEDS: ZINC SULFATE 220 MG CAPSULE PO SCH (12:05)
[2020-12-08] MEDS ORDERED: PHARMACY GLYCEMIC MGMT CONSULT PRN (12:28)
--- NOTE | 2020-12-08 15:06 | Pharmacy Report ---
Pharmacy Glycemic Short Note 2 - Date of Service December 08, 2020 - Glycemic Short BSG Results (Last 24 hours): 12/07/20 12/07/20 12/08/20 17:04 20:28 08:17 POC Glucose 299 H 264 H 263 H 12/08/20 12/08/20 12:02 12:06 POC Glucose 333 H* 334 H* OUTPATIENT ANTIDIABETIC REGIMEN: * Insulin Degludec 30 units SQ AM * NovoLog 15-25 units with meals - up to 60 units/day * A1c = 5.6% but unreliable with Cirrhosis ASSESSMENT: * 54yo T2Dm female well known to pharmacy from previous admissions/glycemic consults * Pt with hyperglycemia at lunchtime - lunch BSG was obtained after paitent started eating. She also takes her pills with applesauce which was NOT included in this mornings CHO count. * Will resume regimen that worked well in previous admissions and titrate based on BSG trends PLAN FOR INPATIENT GLYCEMIC CONTROL: * Basal insulin * Lantus 40 units SQ AM * Bolus insulin * NovoLog per scale ACHS or Q6hrs while NPO * Goal Range: Low 100 mg/dL - High 140 mg/dL * Correction Factor: 25 mg/dL/unit * Nutritional / Prandial insulin per carb ratio of 1 unit per 8 grams CHO consumed
[2020-12-08] MEDS ORDERED: INSULIN GLARGINE SOLOSTAR 100 UNITS/ML 3 ML PEN SC SCH (16:30)
[2020-12-09] MEDS ORDERED: INSULIN GLARGINE SOLOSTAR 100 UNITS/ML 3 ML PEN SC SCH (09:00)
[2020-12-09] MEDS ORDERED: HYDROCORTISONE 10 MG TAB PO SCH (09:00)
--- NOTE | 2020-12-10 07:27 | Discharge Summary ---
Date of Service December 08, 2020 Admission HPI Per Admitting Provider Marcelle Munson is a 54yo female with multiple medical problems presenting with altered mental status. Patient is known to the medical service. 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 She was also diagnosed with ACTH deficiency during that hospital stay and was started on steroid replacement therapy. She was discharged to rehabilitation on 09/02/20 and completed 3 weeks of rehab. She is now living at home with her and has been doing fairly well. brings her today with complaint of minimal responsiveness. He reports that patient was doing well yesterday during the day. In the evening she became altered and minimally responsive. required assistance getting her into bed. Today she was unresponsive all day, did not take her medications and was unable to tolerate PO. She has been incontinent of urine for the last 2 days. Rommel is at bedside and states he is having difficulty taking care of her at home. ER Course: Lactulose enema Principal Diagnosis Acute UTI Discharge Exam The patient appeared well nourished and normally developed. Vital signs as documented. Head exam is normocephalic some ecchymosis to the Neck is without JVD, thyromegaly, or carotid bruits. Lungs are clear to auscultation, no focal loss of breath sounds Cardiac exam, Rhythm is regular.. No murmurs, rubs or gallops. Abdominal exam reveals normal bowel sounds, soft non tender, no masses Extremities are nonedematous and both pedal pulses are present Neurologic exam is alert and oriented, no focal loss of strength or sensation Skin is without bruises or rashes Psychologically is without concerns for anxiety or depression Discharge Data Allergies Allergy/AdvReac Type Severity Reaction Status Date / Time metronidazole Allergy Severe SEIZURE Verified 11/30/20 15:14 tramadol Allergy Severe SEIZURES Verified 11/30/20 15:14 amoxicillin Allergy Intermediate SEE COMMENT Verified 11/30/20 15:14 baclofen Allergy Intermediate RASH Verified 11/30/20 15:14 butalbital Allergy Intermediate HIVES Verified 11/30/20 15:14 ceftriaxone [From Rocephin] Allergy Intermediate Hives Verified 11/30/20 15:14 dicyclomine Allergy Intermediate HIVES Verified 11/30/20 15:14 pollen extracts Allergy Intermediate Hives Verified 11/30/20 15:14 Sulfa (Sulfonamide Allergy Intermediate CAUSES Verified 11/30/20 15:14 Antibiotics) BLACK STOOLS Tetracyclines Allergy Intermediate DOXYCYCLINE Verified 11/30/20 15:14 -HIVES adhesive Allergy Mild RASH, Verified 11/30/20 15:14 DUODERM=RED,ITCHY celecoxib Allergy Mild HIVES Verified 11/30/20 15:14 sulindac Allergy Mild ALLERGY Verified 11/30/20 15:14 LISTED "CLONDORAL"--HIVES Cephalosporins AdvReac Severe TURNS Verified 11/30/20 15:14 STOOL VERY DARK levofloxacin [From Levaquin] AdvReac Severe Vomiting Verified 11/30/20 15:14 metoclopramide AdvReac Severe SEIZURES Verified 11/30/20 15:14 paroxetine [From Paxil] AdvReac Severe Vomiting Verified 11/30/20 15:14 dextromethorphan AdvReac Mild Vomiting Verified 11/30/20 15:14 Consultations 12/05/20 19:21 ED Decision to Admit Stat Hospital Course (1) Acute UTI: 1. Acute UTI - patient with complaint of foul smelling urine as well as incontinence. UA suggestive of infection. -Follow cultures, blood and urine culture, gram negative infection -pt is on ceftriaxone daily -will be discharged on bactrim. 2. Acute on chronic hepatic encephalopathy: Patient with persistently elevated ammonia level. Ammonia =98.1 Improved on discharged toxic encephalopathy secondary to ammonia, maybe secondary to metabolic encephalopahty from uti poa Patient has not taken her medications for at least a day prior to admission -Lactulose enema ordered in ER -Continue Lactulose daily. restarted at tid -Continue rifaximin 550 mg p.o. twice daily - On day of discharge, ammonia level improve 3. Cirrhosis: Patient with liver cirrhosis secondary to STEVE, portal hypertension. Patient follows with gastroenterology, last seen by Dr. Toledo on 10/11/20. Patient had an EGD in June 2020 which showed no varices and mild portal-hypertensive gastropathy. Recent abdominal ultrasound with stable cirrhosis. HCV screening has been completed and is negative. AFP on 03/09/2019 = 2.6 -Continue Lactulose -Continue Rifaximin 550 mg p.o. twice daily -Continue zinc supplementation 50 mg daily -Continue Pepcid 20mg po qHS - recently started by GI for complaint of nausea -Avoid hepatotoxic agents -Patient to have US in 1 year for HCC surveillance and EGD in 3 years for variceal screening. 4. Seizure disorder: Patient with history of seizure. She follows with neurology, last seen on 10/30/20 - follows for mixed tremor as well as dyskinesia and seizure history. EEG completed in May 2018 revealed a generalized spike and slow wave abnormality consistent with an underlying generalized seizure disorder. Patient had an MRI brain completed in October 2017 which was unremarkable. Patient failed VNS placement in the past, device was explanted. Presently on topiramate, Trileptal and Keppra. -Continue Ropinirole - was recently started by Neurology for tremors and dyskinesias. -Continue topiramate -Continue Trileptal -Continue Keppra 5. Diabetes: Patient with type 2 diabetes, well controlled, long-term use of insulin. Blood sugar today =110. Last hemoglobin A1c=5.6 on 05/23/20. Patient follows with Endocrinology/Diabetes education. Last seen on 11/15/20. -Continue Tresiba 30u -ISS -Goal blood sugar 100 - 140 Adrenal insufficiency - recently diagnosed -Continue Hydrocortisone -Patient follows with Endocrinology 6. Chronic gait disorder - patient mostly in wheelchair at home. -Fall precautions -Wheelchair and walker as needed -Assistance as needed with transfers and ambulation -Patient has home health nurse 7. Hypothyroidism - TSH=0.237 -Continue Synthroid 8. GERD- Chronic. Stable. -Continue Omeprazole 40mg po daily, Famotidine 40mg po daily 9. Depression - Chronic. Stable. Patient presently not on any medications. She has been evaluated by Psychiatry in the past. 10. Asthma - history of severe persistent asthma. She has seen Pulmonary as well as Allergy/Immunology in the past. Spirometry performed on 04/23/19 with FVC=1.37, 38% predicted. FEV1=1.18, 40% predicted and FEV1/FVC=86%. Suggestive of restrictive process vs obstruction with air trapping. Study limited. Formal PFTs ordered, not yet completed. Presently CTA, adequate oxygenation on room air, no concern for exacerbation at this time. -Continue Breo Ellipta -Continue Spiriva -Continue Albuterol PRN 11. Migraine: Patient with episodic migraines. Well-controlled. -Continue topiramate -Patient has used Maxalt in the past with success for migraine relief if needed 12. Tremor: Patient with coarse postural and action tremor. -Continue topiramate (2) Hyperammonemia: (3) Pancytopenia: (4) Chronic hypernatremia: (5) Cirrhosis: (6) Major depressive disorder with psychotic features: (7) Peptic ulcer disease: (8) Controlled type 2 diabetes mellitus, with long-term current use of insulin: (9) Multiple drug allergies: (10) Hypothyroidism: (11) Seizure disorder: (12) Chronic liver disease and cirrhosis: (13) Altered mental status: Total Time Total Time Spent Total Time Spent (In Minutes): 32 Discharge Plan Discharge Items Patient Disposition: Home - Home Health Services Reason For Visit: CONFUSION, AMS Discharge Diagnosis: confusion Activity: Resume your previous activity Non-emergency contact: Primary Care Provider Call non-emergency contact if: you have any medication questions Follow-up/Referrals: Jade Currie PA-C [Primary Care Provider] - 12/11/20 9:30 am Diet: Carb Count or DM1 and Low Sodium (2gm) Addtl Attending Provider Instructions: You have been hospitalized for an acute medical problem. During your stay at [facility], we have made an effort to correct the problem that brought you to the hospital while keeping you as comfortable as possible. Medications were used to bring your condition under control and your discharge instructions will include directions for any medications you should take after leaving the hospital. Please make sure you see your Primary Care Provider as part of your follow up plan. Pending Studies at Discharge: No Stand-Alone Forms: My [facility], Smoking Cessation Medications and DC Order Prescriptions: New sulfamethoxazole-trimethoprim [Bactrim DS] 800-160 mg tablet 1 tab PO BID 10 Days Qty: 20 RF: 0 Continued ipratropium-albuterol 0.5 mg-3 mg(2.5 mg base)/3 mL solution for nebulization 3 ml INH QID PRN (Reason: wheezing) Qty: 90 RF: 0 Nurtec ODT 75 mg tablet,disintegrating 75 mg PO DAILY PRN (Reason: migraine headache) 30 Days Qty: 8 RF: 3 topiramate 100 mg tablet 100 mg PO BID Qty: 60 RF: 5 albuterol sulfate 90 mcg/actuation HFA aerosol inhaler 2 puff inhalation Q4H PRN (Reason: shortness of breath) Qty: 1 RF: 3 Xifaxan 550 mg tablet 550 mg PO BID Qty: 60 RF: 5 insulin aspart U-100 [Novolog Flexpen U-100 Insulin] 100 unit/mL (3 mL) insulin pen 15 - 25 unit SQ TID MDD 60 units Qty: 30 RF: 5 benztropine 1 mg tablet 1 mg PO TID 30 Days Qty: 90 RF: 1 lactulose 20 gram/30 mL solution 30 g PO ONCE PRN (Reason: Constipation) Qty: 1200 RF: 0 levothyroxine [Euthyrox] 50 mcg tablet 50 mcg PO QAM Qty: 30 RF: 2 omeprazole 40 mg capsule,delayed release(DR/EC) 40 mg PO QAM Qty: 90 RF: 1 calcium carbonate [Calcium 500] 500 mg calcium (1,250 mg) tablet 500 mg PO DAILY RF: 0 levetiracetam 750 mg tablet 1,500 mg PO BID 30 Days Qty: 120 RF: 5 cholecalciferol (vitamin D3) [Vitamin D3] 25 mcg (1,000 unit) capsule 5,000 unit PO DAILY RF: 0 budesonide-formoterol [Symbicort] 160-4.5 mcg/actuation HFA aerosol inhaler 2 puff inhalation BID PRN (Reason: Shortness Of Breath) RF: 0 Tresiba FlexTouch U-100 100 unit/mL (3 mL) insulin pen 30 unit subcut QAM RF: 0 promethazine 25 mg tablet 25 mg PO Q8H PRN (Reason: nausea and vomiting) Qty: 10 RF: 0 famotidine 20 mg tablet 40 mg PO HS RF: 0 ascorbate calcium (vitamin C) 500 mg tablet 500 mg PO DAILY RF: 0 vitamin E (dl, acetate) 180 mg (400 unit) capsule 180 mg PO Q OTHER DAY RF: 0 epinephrine [EpiPen 2-Garret] 0.3 mg/0.3 mL auto-injector 0.3 mg IM Q10M PRN (Reason: Anaphylaxis) RF: 0 lecithin 1,200 mg capsule 1,200 mg PO QDL RF: 0 cranberry 400 mg capsule 400 mg PO BID RF: 0 multivitamin [Multiple Vitamins] Tablet 1 tab PO QDL RF: 0 zinc 50 mg Tablet 50 mg PO QDL RF: 0 acetaminophen [Acetaminophen Extra Strength] 500 mg Tablet 1,000 mg PO HS RF: 0 vitamin A 8,000 unit Capsule 8,000 unit PO QDL RF: 0 vitamin B complex Tablet 1 tab PO QDL RF: 0 Probiotic 3 billion cell Capsule 1 mmu cells PO QDL RF: 0 Refresh Optive Advanced 0.5-1-0.5 % drops 2 drops OP BID RF: 0 fexofenadine 60 mg Tablet 60 mg PO QAM RF: 0 magnesium oxide 400 mg (241.3 mg magnesium) tablet 400 mg PO QAM RF: 0 ropinirole 0.25 mg tablet 0.25 mg PO HS RF: 0 hydrocortisone 10 mg tablet See Rx Instructions .ROUTE .COMPLEX RF: 0 oxcarbazepine 300 mg tablet See Rx Instructions .ROUTE .COMPLEX RF: 0 pravastatin 20 mg tablet 20 mg PO QAM RF: 0 teriparatide [Forteo] 20 mcg/dose (620mcg/2.48mL) pen injector 20 mcg subcut PM RF: 0 Discharge Orders: Discharge Order (Routine); Ordered 12/08/20 Ordered By: Marvel Chahal/Other Patient Handouts: Understanding Urinary Tract ... Admission Data Admit Date/Time: 12/07/20 16:33 Attending Provider: Marvel Suarez Admit Provider: Amalia Beatty Primary Care Provider: Jade Currie Other Providers: Amalia Beatty Other Interventions: Discharge Summary Assessment (RN) Last Done: 12/08/20 14:35 Coding Level of Care Code D/C DAY MANAGEMENT >30 MINS Diagnoses Acute UTI N39.0 Hyperammonemia E72.20 Pancytopenia D61.818 Chronic hypernatremia E87.0 Cirrhosis K74.60 Major depressive disorder with psychotic features F32.3 Peptic ulcer disease K27.9 Controlled type 2 diabetes mellitus, with long-term current use of insulin E11.69; Z79.4 Diabetes mellitus complication status: with other specified complication Multiple drug allergies Z88.9 Hypothyroidism E03.9 Hypothyroidism type: unspecified Seizure disorder G40.909 Chronic liver disease and cirrhosis K74.60; K76.9 Altered mental status R41.82
== END 2020-12-08 15:10 | disposition home health service (06) | DRG 689 ==
LOC: ED 12:48 → 3W 12:48 → SUATTDRO 20:03 → 3W 21:27 → SUATTDRO 12-07 16:33

== ENCOUNTER 2020-12-29 12:08 | Inpatient (IN) ==
--- NOTE | 2020-12-29 14:39 | Emergency Department Note ---
History of Present Illness General Chief complaint: Neuro Symptoms/Deficit Stated complaint: UNRESPONSIVE, POOR COORDINATION Time Seen by Provider: 12/29/20 14:22 Source: patient and family Mode of arrival: EMS Limitations: patient cooperation and clinical acuity History of Present Illness Provider complaint: somnolent, hyperglycemia Onset (ago): hour(s) Maximum Pain Intensity: 8 This is a 55-year-old female who presents the emergency department with her at bedside due to increased somnolence and hyperglycemia. Patient is well-known to the emergency department and is here frequently, does have a history of hepatic encephalopathy which is the 's primary concern given he states that she was difficult to arouse today between the hours of 830 and noon. He states often times she is sleepy during the day as she has difficulty sleeping at night due to RLS. He states her sugar this morning was elevated. He states she had recently been started on medication for RLS however he felt it was too sedating for her and so he stopped giving it to her. She is still on multiple antiepileptics for history of seizure disorder as well as Cogentin. We did discuss that all of these potentially could be sedating as well. Patient did recently have a urinary tract infection as well. notes when he empties the bedside commode he has not noticed any change in the color or odor of her urine. Pt seen during a time of high acuity and national emergency pandemic while wearing PPE. Home Medications Medication Instructions Recorded Confirmed Type multivitamin (Multiple Vitamins) 1 tab PO QDL 12/26/17 12/29/20 History lactobacillus combination no.4 3 1 mmu cells PO QDL 09/20/18 12/29/20 History billion cell capsule (Probiotic) vitamin A 2,400 mcg capsule 8,000 unit PO QDL 09/20/18 12/29/20 History vitamin B complex 1 tab PO QDL 09/20/18 12/29/20 History zinc 50 mg tablet 50 mg PO QDL 02/09/19 12/29/20 History epinephrine 0.3 mg/0.3 mL 0.3 mg IM Q10M PRN 04/02/19 12/29/20 History injection, auto-injector (EpiPen 2-Garret) lecithin 1,200 mg capsule 1,200 mg PO QDL 04/29/19 12/29/20 History ipratropium 0.5 mg-albuterol 3 mg 3 ml INH QID PRN #90 ml 07/30/19 12/29/20 Rx (2.5 mg base)/3 mL nebulization soln wgwjulcjqyolmcljhkmnph-iikqfkph-kdkokdwb 2 drops OP TID 10/31/19 12/29/20 History 80 0.5 %-1 %-0.5 % eye drops (Refresh Optive Advanced) acetaminophen 500 mg tablet 1,000 mg PO HS 01/09/20 12/29/20 History (Acetaminophen Extra Strength) calcium carbonate 500 mg calcium 500 mg PO DAILY 01/27/20 12/29/20 History (1,250 mg) tablet (Calcium 500) rimegepant 75 mg disintegrating 75 mg PO DAILY PRN 30 Days #8 tab 03/21/20 12/29/20 Rx tablet (Nurtec ODT) fexofenadine 60 mg tablet 60 mg PO QAM 04/12/20 12/29/20 History topiramate 100 mg tablet 100 mg PO BID #60 tab 05/17/20 12/29/20 Rx albuterol sulfate 90 mcg/actuation 2 puff INHALATION Q4H PRN #1 05/31/20 12/29/20 Rx aerosol inhaler inhaler cranberry 400 mg capsule 400 mg PO BID 06/08/20 12/29/20 History magnesium oxide 400 mg (241.3 mg 400 mg PO QAM 06/29/20 12/29/20 History magnesium) tablet rifaximin 550 mg tablet (Xifaxan) 550 mg PO BID #60 tab 07/24/20 12/29/20 Rx insulin aspart U-100 100 unit/mL 15 - 25 unit SQ TID #30 ml MDD 60 09/28/20 12/29/20 Rx (3 mL) subcutaneous pen (Novolog units Flexpen U-100 Insulin aspart) budesonide-formoterol HFA 160 2 puff INHALATION BID PRN inhaler 10/03/20 12/29/20 History mcg-4.5 mcg/actuation aerosol inhaler (Symbicort) insulin degludec 100 unit/mL (3 30 unit SUBCUT QAM ml 10/03/20 12/29/20 History mL) subcutaneous pen (Tresiba FlexTouch U-100 insulin) benztropine 1 mg tablet 1 mg PO TID 30 Days #90 tab 10/07/20 12/29/20 Rx promethazine 25 mg tablet 25 mg PO Q8H PRN #10 tab 10/11/20 12/29/20 Rx levetiracetam 750 mg tablet 1,500 mg PO BID 30 Days #120 tab 10/30/20 12/29/20 Rx levothyroxine 50 mcg tablet 50 mcg PO QAM #30 tab 11/10/20 12/29/20 Rx (Euthyrox) omeprazole 40 mg capsule,delayed 40 mg PO QAM #90 cap 11/15/20 12/29/20 Rx release ascorbate calcium (vitamin C) 500 500 mg PO DAILY 11/16/20 12/29/20 History mg tablet famotidine 20 mg tablet 20 mg PO HS tab 11/16/20 12/29/20 History vitamin E (dl, acetate) 180 mg 180 mg PO Q OTHER DAY cap 11/16/20 12/29/20 History (400 unit) capsule cholecalciferol (vitamin D3) 25 5,000 unit PO DAILY cap 11/30/20 12/29/20 History mcg (1,000 unit) capsule (Vitamin D3) hydrocortisone 10 mg tablet See Rx Instructions .ROUTE 11/30/20 12/29/20 History .COMPLEX tab oxcarbazepine 300 mg tablet See Rx Instructions .ROUTE 11/30/20 12/29/20 History .COMPLEX tab pravastatin 20 mg tablet 20 mg PO QAM 12/05/20 12/29/20 History teriparatide 20 mcg/dose (620 20 mcg SUBCUT PM 12/05/20 12/29/20 History mcg/2.48 mL) subcutaneous pen injector (Forteo) ropinirole 0.25 mg tablet 0.25 mg PO BID 30 Days #60 tab 12/19/20 12/29/20 Rx escitalopram oxalate 20 mg tablet 20 mg PO DAILY 12/29/20 12/29/20 History lactulose 20 gram/30 mL oral 30 g PO QAM PRN 12/29/20 12/29/20 History solution Allergies Allergy/AdvReac Type Severity Reaction Status Date / Time metronidazole Allergy Severe SEIZURE Verified 12/29/20 15:50 tramadol Allergy Severe SEIZURES Verified 12/29/20 15:50 amoxicillin Allergy Intermediate SEE COMMENT Verified 12/29/20 15:50 baclofen Allergy Intermediate RASH Verified 12/29/20 15:50 butalbital Allergy Intermediate HIVES Verified 12/29/20 15:50 ceftriaxone [From Rocephin] Allergy Intermediate Hives Verified 12/29/20 15:50 dicyclomine Allergy Intermediate HIVES Verified 12/29/20 15:50 pollen extracts Allergy Intermediate Hives Verified 12/29/20 15:50 Sulfa (Sulfonamide Allergy Intermediate CAUSES Verified 12/29/20 15:50 Antibiotics) BLACK STOOLS Tetracyclines Allergy Intermediate DOXYCYCLINE Verified 12/29/20 15:50 -HIVES adhesive Allergy Mild RASH, Verified 12/29/20 15:50 DUODERM=RED,ITCHY celecoxib Allergy Mild HIVES Verified 12/29/20 15:50 sulindac Allergy Mild ALLERGY Verified 12/29/20 15:50 LISTED "CLONDORAL"--HIVES Cephalosporins AdvReac Severe TURNS Verified 12/29/20 15:50 STOOL VERY DARK levofloxacin [From Levaquin] AdvReac Severe Vomiting Verified 12/29/20 15:50 metoclopramide AdvReac Severe SEIZURES Verified 12/29/20 15:50 paroxetine [From Paxil] AdvReac Severe Vomiting Verified 12/29/20 15:50 dextromethorphan AdvReac Mild Vomiting Verified 12/29/20 15:50 Past Med/Surg History Medical History ACTH deficiency Chronic liver disease and cirrhosis Controlled type 2 diabetes mellitus, with long-term current use of insulin Depression Frequent falls See care alert special indicator. H/O osteoporotic pathological fracture Hepatic encephalopathy HX>ON XIFAXAN Hypothyroidism Migraine Myoclonic seizure "FREQUENT MYOCLONIC SEIZURES" FOLLOWS WITH DR. YANG Nonalcoholic fatty liver disease Pancytopenia Chronic. Follows with cancer center. Platelets have been > 100 since 10/2019, WNL on 05/23 labs. H/H stable in 8-10 range. Parkinsonism Secondary adrenal insufficiency Seizure disorder (05/26/11) + PSEUDOSEIZURES Sleepiness Suicidal ideation DENIES ANY CURRENT PROBLEM Surgical History Femur fracture, right SPIRAL FRACTURE REPAIRED (HARDWARE REPAIRED) History of ankle surgery RT/LEFT History of appendectomy History of cholecystectomy History of colonoscopy History of esophagogastroduodenoscopy (EGD) History of kyphoplasty History of open reduction and internal fixation (ORIF) procedure RT HIP History of surgery (~06/02/20) screw/plate removal from left humerus History of surgery on arm LEFT (HARDWARE INTACT) History of tooth extraction History of vascular access device right A port Hx of carpal tunnel repair RT/LEFT Hx of cataract extraction RT/LEFT S/P laminectomy lumbar spine S/P nasal surgery nasal bone fracture repair S/P TIFFANIE-BSO (1997) Family History Other Adopted No pertinent family history Social History Smoking Status: Unknown if ever smoked Tobacco Type: Cigarettes Second Hand Exposure: No; Hx Alcohol Use: No Hx Substance Use: No Preferred Language: Turkmen Communication Ability: Effective Visual Impairment: No 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 Current Living Situation: Spouse Current Living Situation Comment: Lives with Benny current occupational status: unemployed and disabled How many Children do You have: 0 Feels Safe at Home: Yes Seatbelt Use: always Assistive Devices: Walker Review of Systems A total of 10 systems reviewed and were otherwise negative All systems reviewed & are unremarkable except as noted in HPI & below Physical Exam Vital Signs Vital Signs - 24 hr 12/29/20 15:42 Pulse Rate [Apical] 67 Pulse Strength [Apical] Normal Respiratory Rate 15 Respiratory Effort / Characteristics Non-Labored Respiratory Depth Normal Respiratory Pattern Regular Blood Pressure [Right Arm] 122/73 Blood Pressure Mean [Right Arm] 89 Pulse Oximetry 99 Oxygen Delivery Method Room Air GENERAL: Somnolent appearing, well nourished, no distress, non-toxic EYE EXAM: normal conjunctiva, PERRL and EOM's grossly intact OROPHARYNX: no exudate, no erythema, lips, buccal mucosa, and tongue normal and mucous membranes are moist NECK: supple, no nuchal rigidity, no adenopathy, non-tender LUNGS: Clear to auscultation. Normal chest wall mechanics, no w/r/r HEART: no murmurs, S1 normal and S2 normal ABDOMEN: abdomen soft, non-tender, normo-active bowel sounds, no masses, no rebound or guarding. BACK: Back is symmetrical on inspection and there is no deformity, no midline tenderness, no CVA tenderness. SKIN: no rashes and no bruising UPPER EXTREMITIES: upper extremities are grossly normal. FROM, nml pulses b/l. LOWER EXTREMITIES: No pitting edema. FROM, nml pulses b/l. NEURO EXAM: Slow to answer questions but does give correct answers, cranial nerves II-XII grossly intact, normal speech, generalized but equal weakness of bilateral upper and lower extremities. Gross sensation intact. Course Course 1645: Pt updated on results. Patient has been states she has been taking all of her medications routinely as prescribed and has not missed any doses. 1706: Case discussed with Dr. Pérez. Administered Medications Ascorbic Acid (Ascorbic Acid 500 Mg Tab) 500 mg PO DAILY SHEBA Stop: 01/29/21 08:59 Last Admin: 12/30/20 08:49 Dose: 500 mg Documented by: [id number] Benztropine Mesylate (Benztropine Mesylate 1 Mg Tab) 1 mg PO TID SHEBA Stop: 01/28/21 22:59 Last Admin: 12/30/20 15:09 Dose: 1 mg Documented by: [id number] Admin: 12/30/20 08:51 Dose: 1 mg Documented by: [id number] Admin: 12/30/20 00:05 Dose: 1 mg Documented by: [id number] Calcium Carbonate (Calcium Carbonate 1250mg Tab) 1,250 mg PO DAILY SHEBA Stop: 01/29/21 08:59 Last Admin: 12/30/20 08:50 Dose: 1,250 mg Documented by: [id number] Escitalopram Oxalate (Escitalopram Oxalate 20 Mg Tab) 20 mg PO DAILY [facility] Stop: 01/29/21 08:59 Last Admin: 12/30/20 08:50 Dose: 20 mg Documented by: [id number] Famotidine (Famotidine 20 Mg Tab) 20 mg PO HS SHEBA Stop: 01/28/21 22:59 Last Admin: 12/30/20 00:05 Dose: 20 mg Documented by: [id number] Fexofenadine HCl (Fexofenadine 60 Mg Tab) 60 mg PO QAM [facility] Stop: 01/29/21 08:59 Last Admin: 12/30/20 08:50 Dose: 60 mg Documented by: [id number] Hydrocortisone (Hydrocortisone 10 Mg Tab) 10 mg PO QAM [facility] Stop: 01/29/21 08:59 Last Admin: 12/30/20 08:49 Dose: 10 mg Documented by: [id number] Hydrocortisone (Hydrocortisone 10 Mg Tab) 5 mg PO QPM SHEBA Stop: 01/28/21 22:59 Last Admin: 12/30/20 00:05 Dose: 5 mg Documented by: [id number] Insulin Aspart (Insulin Aspart 100 Units/Ml 3 Ml Pen) 0 units SC ACHS SHEBA Stop: 01/28/21 22:59 Last Admin: 12/30/20 12:22 Dose: 3 units Documented by: [id number] Cosigned by: [id number] Admin: 12/30/20 08:55 Dose: Not Given Documented by: [id number] Cosigned by: [id number] Admin: 12/30/20 00:03 Dose: Not Given Documented by: [id number] Lactobacillus Acidoph/Casei/Rhamnos (Advanced Probiotic 1250 Mg Capsule) 2 cap PO QDL SHEBA Stop: 01/29/21 11:29 Last Admin: 12/30/20 12:21 Dose: 2 cap Documented by: [id number] Lactulose (Lactulose Syrup 30 Gm/45 Ml Udp) 30 gm PO QAM SHEBA Stop: 01/29/21 08:59 Last Admin: 12/30/20 08:54 Dose: 30 gm Documented by: [id number] Levetiracetam (Levetiracetam 500 Mg Tab) 1,500 mg PO BID SHEBA Stop: 01/28/21 22:59 Last Admin: 12/30/20 10:02 Dose: 1,500 mg Documented by: [id number] Admin: 12/30/20 00:06 Dose: 1,500 mg Documented by: [id number] Levothyroxine Sodium (Levothyroxine Sodium 50 Mcg Tablet) 50 mcg PO DAILYBB SHEBA Stop: 01/29/21 06:29 Last Admin: 12/30/20 06:33 Dose: 50 mcg Documented by: [id number] Magnesium Oxide (Magnesium Oxide 400 Mg Tab) 400 mg PO QAM [facility] Stop: 01/29/21 08:59 Last Admin: 12/30/20 08:49 Dose: 400 mg Documented by: [id number] Miscellaneous (Forteo: Order Awaiting Action) 1 ea N/A QS [facility] Stop: 01/29/21 00:00 Last Admin: 12/30/20 14:35 Dose: Not Given Documented by: [id number] Admin: 12/30/20 08:43 Dose: Not Given Documented by: [id number] Admin: 12/30/20 00:06 Dose: Not Given Documented by: [id number] Multivitamins (Multivitamin Tab) 1 tab PO QDL [facility] Stop: 01/29/21 11:29 Last Admin: 12/30/20 12:21 Dose: 1 tab Documented by: [id number] Oxcarbazepine (Oxcarbazepine 150 Mg Tablet) 300 mg PO [facility] Stop: 01/29/21 08:59 Last Admin: 12/30/20 08:49 Dose: 300 mg Documented by: [id number] Pantoprazole Sodium (Pantoprazole 40 Mg Tab) 40 mg PO [facility]; Protocol Stop: 01/29/21 08:59 Last Admin: 12/30/20 08:50 Dose: 40 mg Documented by: [id number] Pravastatin Sodium (Pravastatin Sod 20 Mg Tab) 20 mg PO [facility] Stop: 01/29/21 08:59 Last Admin: 12/30/20 08:51 Dose: 20 mg Documented by: [id number] Rifaximin (Rifaximin 550 Mg Tablet) 550 mg PO BID [facility] Stop: 01/28/21 22:59 Last Admin: 12/30/20 08:51 Dose: 550 mg Documented by: [id number] Admin: 12/30/20 00:04 Dose: 550 mg Documented by: [id number] Ropinirole HCl (Ropinirole Hcl 0.25 Mg Tablet) 0.25 mg PO BID [facility] Stop: 01/28/21 22:59 Last Admin: 12/30/20 08:51 Dose: 0.25 mg Documented by: [id number] Admin: 12/30/20 00:07 Dose: 0.25 mg Documented by: [id number] Topiramate (Topiramate 100 Mg Tab) 100 mg PO BID [facility] Stop: 01/28/21 22:59 Last Admin: 12/30/20 08:52 Dose: 100 mg Documented by: [id number] Admin: 12/30/20 00:03 Dose: 100 mg Documented by: [id number] Vitamin B Complex (Vitamin B Complex Tab) 1 tab PO QDL [facility] Stop: 01/29/21 11:29 Last Admin: 12/30/20 12:20 Dose: 1 tab Documented by: [id number] Vitamin D (Cholecalciferol 1,000 Units 25 Mcg Tab) 5,000 units PO DAILY [facility] Stop: 01/29/21 08:59 Last Admin: 12/30/20 08:50 Dose: 5,000 units Documented by: [id number] Vitamin E (Tocopheryl, Dl-Alpha 400 Units 180 Mg Cap) 400 units PO Q2D [facility] Stop: 01/29/21 08:59 Last Admin: 12/30/20 08:51 Dose: 400 units Documented by: [id number] Zinc Sulfate (Zinc Sulfate 220 Mg Capsule) 220 mg PO QDL [facility] Stop: 01/29/21 11:29 Last Admin: 12/30/20 12:21 Dose: 220 mg Documented by: [id number] Discontinued Medications Sodium Chloride (Nss 1000ml) 1,000 mls @ 250 mls/hr IV .Q4H SHEBA Stop: 01/28/21 14:44 Last Infusion: 12/29/20 20:38 Dose: 0 mls/hr Documented by: [id number] Admin: 12/29/20 16:01 Dose: 250 mls/hr Documented by: [id number] Ceftriaxone Sodium (Rocephin) 2,000 mg in 70 mls @ 140 mls/hr IV NOW STA Stop: 12/29/20 17:17 Last Infusion: 12/29/20 18:48 Dose: 0 mls/hr Documented by: [id number] Admin: 12/29/20 17:30 Dose: 140 mls/hr Documented by: [id number] Insulin Glargine (Insulin Glargine Solostar 100 Units/Ml 3 Ml Pen) 30 units SC QAM [facility]; Protocol Stop: 01/29/21 08:59 Last Admin: 12/30/20 08:56 Dose: 30 units Documented by: [id number] Cosigned by: [id number] Lactulose (Lactulose Syrup 20 Gm/30 Ml Udc) 20 gm PO NOW ONE Stop: 12/29/20 17:42 Last Admin: 12/29/20 20:11 Dose: 20 gm Documented by: [id number] Oxcarbazepine (Oxcarbazepine 150 Mg Tablet) 600 mg PO ONE ONE Stop: 12/29/20 23:01 Last Admin: 12/30/20 00:04 Dose: 600 mg Documented by: [id number] Medical Decision Making Differential Diagnosis Differential diagnoses includes but is not limited to toxic, metabolic, infectious, traumatic, cardiac, neurologic, hematologic, psychiatric and inflammatory etiologies. Medical Records Attestation: I reviewed the patient's medical records. Home Medications Current Medication List: was personally reviewed by me Laboratory Data Attestation: I reviewed the patient's lab results. Result diagrams: 12/30/20 10:06 12/30/20 10:06 Lab Results 12/29/20 12/29/20 12/29/20 Range/Units 14:45 15:20 15:20 WBC 4.04 L (4.8-10.8) K/uL RBC 3.01 L (4.2-5.4) M/uL Hgb 11.3 L (12.0-16.0) g/dL Hct 31.9 L (37-47) % MCV 106.0 H (80-100) fL MCH 37.5 H (25-34) pg MCHC 35.4 (32-36) g/dL RDW Std Deviation 53.6 H (36.4-46.3) fL RDW Coeff of Irina 13.9 (11.5-14.5) % Plt Count 87 L (130-400) K/uL MPV 9.7 (7.4-10.4) fL Immature Gran % (Auto) 0.0 % Neut % (Auto) 50.4 % Lymph % (Auto) 35.6 % [place] % (Auto) 11.6 % Eos % (Auto) 1.7 % Baso % (Auto) 0.7 % Neut # (Auto) 2.03 (1.4-6.5) K/uL Lymph # (Auto) 1.44 (1.2-3.4) K/uL [place] # (Auto) 0.47 (0.11-0.59) K/uL Eos # (Auto) 0.07 (0-0.5) K/uL Baso # (Auto) 0.03 (0-0.2) K/uL Immature Gran # (Auto) 0.00 (0.00-0.02) K/uL Ovalocytes 2+ Sodium 150 H (136-145) mmol/L Potassium 3.5 (3.5-5.1) mmol/L Chloride 121 H (98-107) mmol/L Carbon Dioxide 23 (21-32) mmol/L Anion Gap 5.0 (3-11) BUN 17 (7-18) mg/dl Creatinine 0.59 L (0.6-1.2) mg/dl Est Cr Clr Drug Dosing 110.5 ml/min Est GFR ( Amer) 119.6 ml/min Est GFR (Non-Af Amer) 103.2 ml/min BUN/Creatinine Ratio 28.6 H (10-20) Glucose 102 H (70-99) mg/dl Calcium 8.0 L (8.5-10.1) mg/dl Magnesium 1.7 L (1.8-2.4) mg/dl Total Bilirubin 1.5 H (0.2-1) mg/dl AST 41 H (15-37) U/L ALT 58 (12-78) U/L Alkaline Phosphatase 167 H (45-117) U/L Ammonia (11-32) umol/L Troponin I < 0.015 (0-0.045) ng/ml Total Protein 5.7 L (6.4-8.2) gm/dl Albumin 2.4 L (3.4-5.0) gm/dl Globulin 3.3 (2.5-4.0) gm/dl Albumin/Globulin Ratio 0.7 L (0.9-2) TSH 4.290 (0.300-4.500) uIu/ml Urine Color Yellow Urine Appearance Cloudy A (Clear) Urine pH 7.0 (4.5-7.5) Ur Specific [place] 1.016 (1.000-1.030) Urine Protein Negative (Negative) Urine Glucose (UA) Negative (Negative) Urine Ketones Negative (Negative) Urine Blood Negative (Negative) Urine Nitrite Positive A (Negative) Urine Bilirubin Negative (Negative) Urine Urobilinogen Negative (Negative) Ur Leukocyte Esterase 1+ H (Negative) Urine WBC (Auto) >30 H (0-5) /hpf Urine RBC (Auto) 0-4 (0-4) /hpf U Hyaline Cast (Auto) 1-5 (0-5) /lpf U Epithel Cells (Auto) 0-5 (0-5) /lpf Urine Bacteria (Auto) 4+ H (Negative) COVID-19 Eval Order SARS-CoV-2 (PCR) (Negative) 12/29/20 12/29/20 12/29/20 Range/Units 15:20 17:37 17:37 WBC (4.8-10.8) K/uL RBC (4.2-5.4) M/uL Hgb (12.0-16.0) g/dL Hct (37-47) % MCV (80-100) fL MCH (25-34) pg MCHC (32-36) g/dL RDW Std Deviation (36.4-46.3) fL RDW Coeff of Irina (11.5-14.5) % Plt Count (130-400) K/uL MPV (7.4-10.4) fL Immature Gran % (Auto) % Neut % (Auto) % Lymph % (Auto) % [place] % (Auto) % Eos % (Auto) % Baso % (Auto) % Neut # (Auto) (1.4-6.5) K/uL Lymph # (Auto) (1.2-3.4) K/uL [place] # (Auto) (0.11-0.59) K/uL Eos # (Auto) (0-0.5) K/uL Baso # (Auto) (0-0.2) K/uL Immature Gran # (Auto) (0.00-0.02) K/uL Ovalocytes Sodium (136-145) mmol/L Potassium (3.5-5.1) mmol/L Chloride (98-107) mmol/L Carbon Dioxide (21-32) mmol/L Anion Gap (3-11) BUN (7-18) mg/dl Creatinine (0.6-1.2) mg/dl Est Cr Clr Drug Dosing ml/min Est GFR ( Amer) ml/min Est GFR (Non-Af Amer) ml/min BUN/Creatinine Ratio (10-20) Glucose (70-99) mg/dl Calcium (8.5-10.1) mg/dl Magnesium (1.8-2.4) mg/dl Total Bilirubin (0.2-1) mg/dl AST (15-37) U/L ALT (12-78) U/L Alkaline Phosphatase (45-117) U/L Ammonia 164.6 H (11-32) umol/L Troponin I (0-0.045) ng/ml Total Protein (6.4-8.2) gm/dl Albumin (3.4-5.0) gm/dl Globulin (2.5-4.0) gm/dl Albumin/Globulin Ratio (0.9-2) TSH (0.300-4.500) uIu/ml Urine Color Urine Appearance (Clear) Urine pH (4.5-7.5) Ur Specific [place] (1.000-1.030) Urine Protein (Negative) Urine Glucose (UA) (Negative) Urine Ketones (Negative) Urine Blood (Negative) Urine Nitrite (Negative) Urine Bilirubin (Negative) Urine Urobilinogen (Negative) Ur Leukocyte Esterase (Negative) Urine WBC (Auto) (0-5) /hpf Urine RBC (Auto) (0-4) /hpf U Hyaline Cast (Auto) (0-5) /lpf U Epithel Cells (Auto) (0-5) /lpf Urine Bacteria (Auto) (Negative) COVID-19 Eval Order Covid19 at [facility] SARS-CoV-2 (PCR) NEGATIVE (Negative) ECG Data Attestation: I personally reviewed and interpreted this ECG as follows: Indication: + weakness Rate (beats per minute): 67 Rhythm: + normal sinus ECG Intervals/blocks: + Normal QRS and + Normal QT ECG Lily: + Normal ECG ST segments: + Normal ST segments MDM Narrative This is a 55-year-old female well-known to the emergency department with history of hepatic encephalopathy as well as recent urinary tract infection upon admission last month. Has been concern for increased somnolence today and possible recurrence of elevated ammonia versus recurrent UTI. Patient's UA was suggestive of possible urinary tract infection, and after discussion with the ED pharmacist, she was started on IV antibiotics. Patient's ammonia was elevated compared to prior levels. Patient and declined missing any medications. Patient was hemodynamically stable while in the emergency room. While somnolent was arousable and could answer questions of orientation albeit very slowly and with some prompting from her . Case discussed with hospitalist team given increased somnolence compared to baseline, elevated ammonia level in the setting of history of hepatic disease, and possible evolving urinary tract infection. Urine was sent for culture as a precaution. No ectopy or dysrhythmia noted on telemetry. I do not suspect bacteremia/sepsis, SBP, pneumonia, PE, CVA, ICH, DKA, or myxedema coma. An order was placed for continuous cardiac monitoring. The monitor shows a rate of _76_ with _normal sinus_ rhythm. Impression & Plan AMS (altered mental status), Hyperammonemia, UTI (urinary tract infection) Discharge Plan Visit Data Chief Complaint: Neuro Symptoms/Deficit Stated Complaint: UNRESPONSIVE, POOR COORDINATION ED Provider: Trini Cutler Discharge Problem: AMS (altered mental status), Hyperammonemia, UTI (urinary tract infection) Patient Disposition: Admitted As Inpatient Discharge Instructions Interventions: ED Discharge Assessment Last Done: 12/30/20 02:54 Discharge Problem: AMS (altered mental status) Qualifiers: Altered mental status type: unspecified Qualified Code(s): R41.82 - Altered mental status, unspecified UTI (urinary tract infection) Qualifiers: Urinary tract infection type: acute cystitis Hematuria presence: without hematuria Qualified Code(s): N30.00 - Acute cystitis without hematuria
[2020-12-29] MEDS ORDERED: SODIUM CHLORIDE 0.9% 1000ML 1,000 ML IV SCH (14:45)
[2020-12-29 15:06] LABS: Appearance Urine Cloudy (Clear); Bacteria Urine Automated 4+ (Negative); Bilirubin Urine Negative (Negative); Blood Urine Negative (Negative); Color Urine Yellow; Epithelial Cell Urine Auto 0-5 /lpf (0-5); Glucose Urine UA Negative (Negative); Ketones Urine Negative (Negative); Leukocyte Esterase Urine 1+ (Negative); Nitrite Urine Positive (Negative); Protein Urine Negative (Negative); RBC Urine Automated 0-4 /hpf (0-4); Specific Gravity Urine 1.016 (1.000-1.030); Urobilinogen Urine Negative (Negative); WBC Urine Automated >30 /hpf (0-5)
[2020-12-29 15:44] LABS: Hematocrit (blood only) 31.9 % (37-47); Hemoglobin 11.3 g/dL (12.0-16.0); Mean Corpuscular Hemoglobin 37.5 pg (25-34); Mean Corpuscular Hgb Conc 35.4 g/dL (32-36); RDW Coefficient of Variation 13.9 % (11.5-14.5); RDW Standard Deviation 53.6 fL (36.4-46.3); Red Blood Count 3.01 M/uL (4.2-5.4); White Blood Count 4.04 K/uL (4.8-10.8)
[2020-12-29 15:45] LABS: Mean Platelet Volume 9.7 fL (7.4-10.4); Platelet Count 87 K/uL (130-400)
[2020-12-29 16:01] LABS: Alanine Aminotransferase 58 U/L (12-78); Albumin Level 2.4 gm/dl (3.4-5.0); Aspartate Aminotransferase 41 U/L (15-37); BUN Creatinine Ratio 28.6 (10-20); Blood Urea Nitrogen 17 mg/dl (7-18); Carbon Dioxide 23 mmol/L (21-32); Chloride 121 mmol/L (98-107); Creatinine Clr Calc Pharmacy 110.5 ml/min; Est GFR (African American) 119.6 ml/min; Est GFR (Non-African American) 103.2 ml/min; Glucose 102 mg/dl (70-99); Magnesium 1.7 mg/dl (1.8-2.4); Potassium 3.5 mmol/L (3.5-5.1); Sodium 150 mmol/L (136-145)
[2020-12-29 16:12] LABS: Albumin Globulin Ratio 0.7 (0.9-2); Alkaline Phosphatase 167 U/L (45-117); Bilirubin,Total 1.5 mg/dl (0.2-1); Globulin 3.3 gm/dl (2.5-4.0); Total Protein 5.7 gm/dl (6.4-8.2); Troponin I < 0.015 ng/ml (0-0.045)
[2020-12-29] MEDS ORDERED: cefTRIAXone SODIUM 2,000 MG/70 ML BAG IV STA (16:48)
[2020-12-29 16:53] LABS: Basophils # (auto) 0.03 K/uL (0-0.2); Basophils % (auto) 0.7 %; Eosinophils # (auto) 0.07 K/uL (0-0.5); Eosinophils % (auto) 1.7 %; Lymphocytes # (auto) 1.44 K/uL (1.2-3.4); Lymphocytes % (auto) 35.6 %; Monocytes # (auto) 0.47 K/uL (0.11-0.59); Monocytes % (auto) 11.6 %; Neutrophils # (auto) 2.03 K/uL (1.4-6.5); Neutrophils % (auto) 50.4 %; Ovalocytes 2+
--- NOTE | 2020-12-29 17:40 | History & Physical Report ---
Date of Service December 29, 2020 Assessment & Plan (1) AMS (altered mental status): Plan: Multiple episodes of simlar. Her partner feels she is on too many neurological medications and I encouraged him to discuss this more at his next neurology visit but given intermittent nature of events I am doubtful it is medication induced. Usually resolves on just the resumption of her usual medications. ?due to hyperammonemia - lactulose 30 ?hypernatremia - most likely from dehydration if not eating right ?UTI - ceftriaxone given in ER, will defer further treatment on admission given she is back to her baseline state (2) Hyperammonemia: Plan: Lactulose 30g PO now, repeat in AM (3) UTI (urinary tract infection): Plan: As above Plan: Diet - T2DM Disposition - -admit to med/surg Admission and Anticipated Discharge Date Admission Date: Dec 29, 2020 History of Present Illness Chief Complaint: Altered mental state Primary Care Provider: Jade Munson is a medically complex 55 year old female who presents to the ER after a possible syncopal event at home with altered mental state. This has occurred multiple times in the past and she has been treated for UTIs however usually just resumption of her usual medical regimen and giving lactulose helps her symptoms. Her is at bedside and reports she seems to have lost more hand control in the last few weeks. Yesterday was generally a good day however by the end of the day she was "fading". Today she slumped in her chair and he was unable to wake her up even with sternal rubs. He talked to a nurse in her neurologist office and recommended coming to the ER. He did not wish to call EMS so brought her in himself. He managed to move her into her wheelchair at which point she started coming to. Currently in the ER she is the mostly back to her normal self. He reports compliance with all her medications although she is not eating much. She had a significant BM yesterday with lactulose. Allergies Allergy/AdvReac Type Severity Reaction Status Date / Time metronidazole Allergy Severe SEIZURE Verified 12/29/20 15:50 tramadol Allergy Severe SEIZURES Verified 12/29/20 15:50 amoxicillin Allergy Intermediate SEE COMMENT Verified 12/29/20 15:50 baclofen Allergy Intermediate RASH Verified 12/29/20 15:50 butalbital Allergy Intermediate HIVES Verified 12/29/20 15:50 ceftriaxone [From Rocephin] Allergy Intermediate Hives Verified 12/29/20 15:50 dicyclomine Allergy Intermediate HIVES Verified 12/29/20 15:50 pollen extracts Allergy Intermediate Hives Verified 12/29/20 15:50 Sulfa (Sulfonamide Allergy Intermediate CAUSES Verified 12/29/20 15:50 Antibiotics) BLACK STOOLS Tetracyclines Allergy Intermediate DOXYCYCLINE Verified 12/29/20 15:50 -HIVES adhesive Allergy Mild RASH, Verified 12/29/20 15:50 DUODERM=RED,ITCHY celecoxib Allergy Mild HIVES Verified 12/29/20 15:50 sulindac Allergy Mild ALLERGY Verified 12/29/20 15:50 LISTED "CLONDORAL"--HIVES Cephalosporins AdvReac Severe TURNS Verified 12/29/20 15:50 STOOL VERY DARK levofloxacin [From Levaquin] AdvReac Severe Vomiting Verified 12/29/20 15:50 metoclopramide AdvReac Severe SEIZURES Verified 12/29/20 15:50 paroxetine [From Paxil] AdvReac Severe Vomiting Verified 12/29/20 15:50 dextromethorphan AdvReac Mild Vomiting Verified 12/29/20 15:50 Home Medications Medication Instructions Recorded Confirmed Type multivitamin (Multiple Vitamins) 1 tab PO QDL 12/26/17 12/29/20 History lactobacillus combination no.4 3 1 mmu cells PO QDL 09/20/18 12/29/20 History billion cell capsule (Probiotic) vitamin A 2,400 mcg capsule 8,000 unit PO QDL 09/20/18 12/29/20 History vitamin B complex 1 tab PO QDL 09/20/18 12/29/20 History zinc 50 mg tablet 50 mg PO QDL 02/09/19 12/29/20 History epinephrine 0.3 mg/0.3 mL 0.3 mg IM Q10M PRN 04/02/19 12/29/20 History injection, auto-injector (EpiPen 2-Garret) lecithin 1,200 mg capsule 1,200 mg PO QDL 04/29/19 12/29/20 History ipratropium 0.5 mg-albuterol 3 mg 3 ml INH QID PRN #90 ml 07/30/19 12/29/20 Rx (2.5 mg base)/3 mL nebulization soln [id number] 2 drops OP TID 10/31/19 12/29/20 History 80 0.5 %-1 %-0.5 % eye drops (Refresh Optive Advanced) acetaminophen 500 mg tablet 1,000 mg PO HS 01/09/20 12/29/20 History (Acetaminophen Extra Strength) calcium carbonate 500 mg calcium 500 mg PO DAILY 01/27/20 12/29/20 History (1,250 mg) tablet (Calcium 500) rimegepant 75 mg disintegrating 75 mg PO DAILY PRN 30 Days #8 tab 03/21/20 12/29/20 Rx tablet (Nurtec ODT) fexofenadine 60 mg tablet 60 mg PO QAM 04/12/20 12/29/20 History topiramate 100 mg tablet 100 mg PO BID #60 tab 05/17/20 12/29/20 Rx albuterol sulfate 90 mcg/actuation 2 puff INHALATION Q4H PRN #1 05/31/20 12/29/20 Rx aerosol inhaler inhaler cranberry 400 mg capsule 400 mg PO BID 06/08/20 12/29/20 History magnesium oxide 400 mg (241.3 mg 400 mg PO QAM 06/29/20 12/29/20 History magnesium) tablet rifaximin 550 mg tablet (Xifaxan) 550 mg PO BID #60 tab 07/24/20 12/29/20 Rx insulin aspart U-100 100 unit/mL 15 - 25 unit SQ TID #30 ml MDD 60 09/28/20 12/29/20 Rx (3 mL) subcutaneous pen (Novolog units Flexpen U-100 Insulin aspart) budesonide-formoterol HFA 160 2 puff INHALATION BID PRN inhaler 10/03/20 12/29/20 History mcg-4.5 mcg/actuation aerosol inhaler (Symbicort) insulin degludec 100 unit/mL (3 30 unit SUBCUT QAM ml 10/03/20 12/29/20 History mL) subcutaneous pen (Tresiba FlexTouch U-100 insulin) benztropine 1 mg tablet 1 mg PO TID 30 Days #90 tab 10/07/20 12/29/20 Rx promethazine 25 mg tablet 25 mg PO Q8H PRN #10 tab 10/11/20 12/29/20 Rx levetiracetam 750 mg tablet 1,500 mg PO BID 30 Days #120 tab 10/30/20 12/29/20 Rx levothyroxine 50 mcg tablet 50 mcg PO QAM #30 tab 11/10/20 12/29/20 Rx (Euthyrox) omeprazole 40 mg capsule,delayed 40 mg PO QAM #90 cap 11/15/20 12/29/20 Rx release ascorbate calcium (vitamin C) 500 500 mg PO DAILY 11/16/20 12/29/20 History mg tablet famotidine 20 mg tablet 20 mg PO HS tab 11/16/20 12/29/20 History vitamin E (dl, acetate) 180 mg 180 mg PO Q OTHER DAY cap 11/16/20 12/29/20 History (400 unit) capsule cholecalciferol (vitamin D3) 25 5,000 unit PO DAILY cap 11/30/20 12/29/20 History mcg (1,000 unit) capsule (Vitamin D3) hydrocortisone 10 mg tablet See Rx Instructions .ROUTE 11/30/20 12/29/20 History .COMPLEX tab oxcarbazepine 300 mg tablet See Rx Instructions .ROUTE 11/30/20 12/29/20 History .COMPLEX tab pravastatin 20 mg tablet 20 mg PO QAM 12/05/20 12/29/20 History teriparatide 20 mcg/dose (620 20 mcg SUBCUT PM 12/05/20 12/29/20 History mcg/2.48 mL) subcutaneous pen injector (Forteo) ropinirole 0.25 mg tablet 0.25 mg PO BID 30 Days #60 tab 12/19/20 12/29/20 Rx escitalopram oxalate 20 mg tablet 20 mg PO DAILY 12/29/20 12/29/20 History lactulose 20 gram/30 mL oral 30 g PO QAM PRN 12/29/20 12/29/20 History solution Past Med/Surg History Medical History ACTH deficiency Chronic liver disease and cirrhosis Controlled type 2 diabetes mellitus, with long-term current use of insulin Depression Frequent falls See care alert special indicator. H/O osteoporotic pathological fracture Hepatic encephalopathy HX>ON XIFAXAN Hypothyroidism Migraine Myoclonic seizure "FREQUENT MYOCLONIC SEIZURES" FOLLOWS WITH DR. YANG Nonalcoholic fatty liver disease Pancytopenia Chronic. Follows with cancer center. Platelets have been > 100 since 10/2019, WNL on 05/23 labs. H/H stable in 8-10 range. Parkinsonism Secondary adrenal insufficiency Seizure disorder (05/26/11) + PSEUDOSEIZURES Sleepiness Suicidal ideation DENIES ANY CURRENT PROBLEM Surgical History Femur fracture, right SPIRAL FRACTURE REPAIRED (HARDWARE REPAIRED) History of ankle surgery RT/LEFT History of appendectomy History of cholecystectomy History of colonoscopy History of esophagogastroduodenoscopy (EGD) History of kyphoplasty History of open reduction and internal fixation (ORIF) procedure RT HIP History of surgery (~06/02/20) screw/plate removal from left humerus History of surgery on arm LEFT (HARDWARE INTACT) History of tooth extraction History of vascular access device right A port Hx of carpal tunnel repair RT/LEFT Hx of cataract extraction RT/LEFT S/P laminectomy lumbar spine S/P nasal surgery nasal bone fracture repair S/P TIFFANIE-BSO (1997) Family History Other Adopted No pertinent family history Social History Smoking Status: Unknown if ever smoked Tobacco Type: Cigarettes Second Hand Exposure: No; Hx Alcohol Use: No Hx Substance Use: No Preferred Language: Citizen Of [place] Communication Ability: Effective Visual Impairment: No Limitations Addictions Therapist Required: No Beliefs That Will Affect Care: None marital status: . Current Living Situation: Spouse Current Living Situation Comment: Lives with Benny current occupational status: unemployed and disabled How many Children do You have: 0 Feels Safe at Home: Yes Seatbelt Use: always Assistive Devices: Walker and Wheelchair Review of Systems Review of Systems: All systems reviewed & are unremarkable except as noted in HPI & below Physical Exam Constitutional: well developed; + not well nourished and no acute distress Eyes: PERRL, conjunctivae normal, anicteric sclerae ENMT: external ear and nose normal, oropharynx normal Neck: trachea midline, no thyromegaly Respiratory: normal respiratory effort, lungs clear to auscultation Cardiovascular: RRR, no murmur, no edema Gastrointestinal (Abdomen): Inspection/Auscultation: normal bowel sounds Percussion/Palpation: abdomen soft; abdomen nontender, no guarding and abdomen not rigid Musculoskeletal: no cyanosis or clubbing, extremities motor strength 5/5 Skin: no rashes, warm and dry Neurologic: moves all extremities (weak LE b/l movements), awake and + confused (at baseline); no focal motor deficits (no lateralizing decifit) Psychiatric: Orientation: alert, oriented to person and oriented to place; + not oriented to time Genitourinary: no CVA tenderness Results & Data Results & Data ([facility]) Vital Signs (Past 12 Hours) Vital Signs Temp Pulse Pulse Resp BP BP Pulse Ox 12/29/20 15:42 67 15 122/73 99 12/29/20 12:17 36.1 C L 74 20 126/68 100 Medications Administered ER Medications Given: Ceftriaxone 2g IV ECG Indication: altered mental status Rate (beats per minute): 67 Rhythm: normal sinus Findings: + nonspecific-ST abn Comparison ECG Date: from (November 29, 2020) Change: no significant change Code Status & VTE Plan Code Status Full VTE Prophylaxis Plan VTE Prophylaxis will be ordered: Yes PG Care Time/CCT Total # of Minutes Spent Total Time Spent with Patient: Total time spent is greater than 50% in coordination of care (as documented) at patient's floor/unit and/or counseling patient: Coding Level of Care Code 15795 Initial Inpt Care Lvl 2 Diagnoses AMS (altered mental status) R41.82 Altered mental status type: unspecified Hyperammonemia E72.20 UTI (urinary tract infection) N30.00 Hematuria presence: without hematuria Urinary tract infection type: acute cystitis (1) UTI (urinary tract infection) Hematuria presence: without hematuria Urinary tract infection type: acute cystitis Qualified Code(s): N30.00 - Acute cystitis without hematuria (2) AMS (altered mental status) Altered mental status type: unspecified Qualified Code(s): R41.82 - Altered mental status, unspecified
[2020-12-29] MEDS ORDERED: LACTULOSE SYRUP 20 GM/30 ML UDC PO ONE (17:41)
[2020-12-29] MEDS ORDERED: PROMETHAZINE HCL 25 MG TAB PO PRN (22:17)
[2020-12-29] MEDS ORDERED: GLUCOSE 40% GEL 15 GM TUBE PO PRN ×2 (22:17→23:19)
[2020-12-29] MEDS ORDERED: GLUCAGON FOR INJ 1 MG VIAL SQ PRN ×2 (22:17→23:19)
[2020-12-29] MEDS ORDERED: GLUCOSE 10 TABS/TUBE PO PRN ×2 (22:17→23:19)
[2020-12-29] MEDS ORDERED: ALBUTEROL HFA 8 GM INHALER INH PRN (22:17)
[2020-12-29] MEDS ORDERED: ALBUT/IPRATROP 3MG/0.5MG NEB 3 ML VIAL INH PRN (22:17)
[2020-12-29] MEDS ORDERED: CARBOHYDRATES FOR HYPOGLYCEMIA PO PRN ×2 (22:17→23:19)
[2020-12-29] MEDS ORDERED: DEXTROSE 50% 50 ML SYRINGE IV PRN ×2 (22:17→23:19)
[2020-12-29] MEDS ORDERED: LACTULOSE SYRUP 30 GM/45 ML UDP PO PRN (22:44)
[2020-12-29] MEDS ORDERED: FLUTICASONE/VILANTEROL 200/25MCG 14 PUFFS/INHALER INH PRN (22:52)
[2020-12-29] MEDS ORDERED: OXcarbazepine 150 MG TABLET PO ONE (23:00)
[2020-12-30] MEDS: INSULIN ASPART 100 UNITS/ML 3 ML PEN SC SCH ×5 (00:03→20:38)
[2020-12-30] MEDS: TOPIRAMATE 100 MG TAB PO SCH ×3 (00:03→20:20)
[2020-12-30] MEDS: rifAXIMin 550 MG TABLET PO SCH ×3 (00:04→20:20)
[2020-12-30] MEDS: HYDROCORTISONE 10 MG TAB PO SCH ×3 (00:05→20:23)
[2020-12-30] MEDS: FAMOTIDINE 20 MG TAB PO SCH ×2 (00:05→20:23)
[2020-12-30] MEDS: BENZTROPINE MESYLATE 1 MG TAB PO SCH ×4 (00:05→20:22)
[2020-12-30] MEDS: levETIRAcetam 500 MG TAB PO SCH ×3 (00:06→20:21)
[2020-12-30] MEDS: rOPINIRole HCL 0.25 MG TABLET PO SCH ×3 (00:07→20:22)
[2020-12-30] MEDS: LEVOTHYROXINE SODIUM 50 MCG TABLET PO SCH (06:33)
--- NOTE | 2020-12-30 06:59 | Electrocardiogram Report ---
Test Reason : Blood Pressure : / mmHG Vent. Rate : 067 BPM Atrial Rate : 067 BPM P-R Int : 158 ms QRS Dur : 098 ms QT Int : 422 ms P-R-T Axes : 040 -08 026 degrees QTc Int : 445 ms Normal sinus rhythm Minimal voltage criteria for LVH, may be normal variant Nonspecific T wave abnormality Abnormal ECG When compared with ECG of 29-NOV-2020 07:10, No significant change was found Confirmed by Dustin Gonzalez ([id number]) on 12/30/2020 6:59:31 AM Referred By: REFERRED SELF Confirmed By:Dustin Gonzalez
[2020-12-30] MEDS ORDERED: INSULIN ASPART 100 UNITS/ML 3 ML PEN SC SCH (07:30)
[2020-12-30] MEDS: MAGNESIUM OXIDE 400 MG TAB PO SCH (08:49)
[2020-12-30] MEDS: OXcarbazepine 150 MG TABLET PO SCH ×2 (08:49→20:24)
[2020-12-30] MEDS: ASCORBIC ACID 500 MG TAB PO SCH (08:49)
[2020-12-30] MEDS: CALCIUM CARBONATE 1250MG TAB PO SCH (08:50)
[2020-12-30] MEDS: ESCITALOPRAM OXALATE 20 MG TAB PO SCH (08:50)
[2020-12-30] MEDS: PANTOprazole 40 MG TAB PO SCH (08:50)
[2020-12-30] MEDS: FEXOFENADINE 60 MG TAB PO SCH (08:50)
[2020-12-30] MEDS: CHOLECALCIFEROL 1,000 UNITS 25 MCG TAB PO SCH (08:50)
[2020-12-30] MEDS: TOCOPHERYL, DL-ALPHA 400 UNITS 180 MG CAP PO SCH (08:51)
[2020-12-30] MEDS: PRAVASTATIN SOD 20 MG TAB PO SCH (08:51)
[2020-12-30] MEDS ORDERED: INSULIN GLARGINE SOLOSTAR 100 UNITS/ML 3 ML PEN SC SCH (09:00)
[2020-12-30] MEDS ORDERED: LACTULOSE SYRUP 30 GM/45 ML UDP PO SCH (09:00)
--- NOTE | 2020-12-30 10:10 | Hospitalist Progress Note ---
Date of Service December 30, 2020 Assessment & Plan (1) AMS (altered mental status): Plan: likely multifactorial, due to elevated ammonia, hypernatremia UA is dirty, could be a UTI, she had one at the beginning of November, follow up culture repeat labs today (2) Hyperammonemia: Plan: high at 160, will increase Lactulose to 30 BID she normally is on 30mg daily PRN and takes rifaximin (3) UTI (urinary tract infection): Plan: UA is positive follow up cultures Plan: check labs get PT/OT to see her Admission and Anticipated Discharge Date Admission Date: December 29, 2020 Subjective patient presented with lethargy, common for her her ammonia was up at 160, also not uncommon today she is still fatigued, waking up to eat and drink, taking her medications will get PT/OT to see her check labs in AM Review of Systems Review of Systems: Unobtainable due to reduced consciousness (very sleepy today) Physical Exam Physical Exam: General: well developed, well nourished, no acute distress, comfortable, lethargic, disheveled Neck: supple, trachea midline, normal thyroid Lungs: clear to auscultation bilaterally, normal respiratory effort, no accessory muscle use, no distress Heart: regular S1 and S2, no murmur, peripheral pulses normal, capillary refill normal, no edema Abdomen: soft, NT, ND, + BS, no hepatomegaly, normal to percussion Extremities: normal in appearance, no cyanosis, no petechiae, strength is 5/5 bilaterally Neuro: awake, cooperative, moves all extremities, no focal motor deficits, CN II-XII intact, sensation in extremities intact, normal speech Skin: warm, dry, no rash, normal turgor Psych: lethargic, oriented to person, place Results & Data Results & Data ([facility]) Vital Signs (Past 12 Hours) Vital Signs Temp Pulse Pulse Resp BP Pulse Ox 12/30/20 07:47 73 12/30/20 07:30 36.5 C 70 18 130/75 98 12/30/20 04:00 36.7 C 61 18 127/69 99 12/30/20 00:11 123/45 L 12/29/20 23:59 63 18 96 PG Care Time/CCT Total # of Minutes Spent Total Time Spent with Patient: Total time spent is greater than 50% in coordination of care (as documented) at patient's floor/unit and/or counseling patient: Coding Level of Care Code 24065 Subseq Hosp Care Lvl 2 Diagnoses AMS (altered mental status) R41.82 Altered mental status type: unspecified Hyperammonemia E72.20 UTI (urinary tract infection) N30.00 Hematuria presence: without hematuria Urinary tract infection type: acute cystitis (1) UTI (urinary tract infection) Hematuria presence: without hematuria Urinary tract infection type: acute cystitis Qualified Code(s): N30.00 - Acute cystitis without hematuria (2) AMS (altered mental status) Altered mental status type: unspecified Qualified Code(s): R41.82 - Altered mental status, unspecified
[2020-12-30 10:14] LABS: Hematocrit (blood only) 30.4 % (37-47); Hemoglobin 10.7 g/dL (12.0-16.0); Mean Corpuscular Hgb Conc 35.2 g/dL (32-36); Mean Corpuscular Volume 105.2 fL (80-100); RDW Coefficient of Variation 13.8 % (11.5-14.5); RDW Standard Deviation 52.6 fL (36.4-46.3); Red Blood Count 2.89 M/uL (4.2-5.4); White Blood Count 3.43 K/uL (4.8-10.8)
[2020-12-30 10:18] LABS: Mean Platelet Volume 9.8 fL (7.4-10.4); Platelet Count 84 K/uL (130-400)
[2020-12-30 10:41] LABS: BUN Creatinine Ratio 24.9 (10-20); Creatinine Clr Calc Pharmacy 106.5 ml/min; Est GFR (African American) 118.3 ml/min; Est GFR (Non-African American) 102.1 ml/min; Potassium 3.8 mmol/L (3.5-5.1)
[2020-12-30] MEDS ORDERED: NON-FORMULARY MEDICATION (Vitamin A 8,000 unit Capsule) PO SCH (11:30)
[2020-12-30] MEDS: VITAMIN B COMPLEX TAB PO SCH (12:20)
[2020-12-30] MEDS: ZINC SULFATE 220 MG CAPSULE PO SCH (12:21)
[2020-12-30] MEDS: MULTIVITAMIN TAB PO SCH (12:21)
[2020-12-30] MEDS: ADVANCED PROBIOTIC 1250 MG CAPSULE PO SCH (12:21)
[2020-12-30] MEDS: LACTULOSE SYRUP 30 GM/45 ML UDP PO SCH (17:53)
[2020-12-30] MEDS: ACETAMINOPHEN 500 MG TAB PO SCH (20:23)
[2020-12-30] MEDS: ARTIFICIAL TEARS OP SCH (20:43)
[2020-12-31] MEDS: LEVOTHYROXINE SODIUM 50 MCG TABLET PO SCH (05:22)
[2020-12-31] MEDS: HEPARIN 100 UNIT/ML 5ML FLUSH FLUSH PRN ×2 (08:00→10:41)
[2020-12-31 08:43] LABS: Albumin Level 2.4 gm/dl (3.4-5.0); BUN Creatinine Ratio 28.9 (10-20); Calcium 8.2 mg/dl (8.5-10.1); Creatinine Clr Calc Pharmacy 129.7 ml/min; Est GFR (African American) 126.3 ml/min; Potassium 3.8 mmol/L (3.5-5.1)
[2020-12-31 08:46] LABS: Albumin Globulin Ratio 0.8 (0.9-2); Globulin 3.1 gm/dl (2.5-4.0); Total Protein 5.5 gm/dl (6.4-8.2)
[2020-12-31] MEDS: LACTULOSE SYRUP 30 GM/45 ML UDP PO SCH ×2 (08:58→18:03)
[2020-12-31] MEDS: OXcarbazepine 150 MG TABLET PO SCH ×2 (08:58→20:13)
[2020-12-31] MEDS: BENZTROPINE MESYLATE 1 MG TAB PO SCH ×3 (08:59→20:15)
[2020-12-31] MEDS: ASCORBIC ACID 500 MG TAB PO SCH (08:59)
[2020-12-31] MEDS: PRAVASTATIN SOD 20 MG TAB PO SCH (08:59)
[2020-12-31] MEDS: MAGNESIUM OXIDE 400 MG TAB PO SCH (08:59)
[2020-12-31] MEDS: CHOLECALCIFEROL 1,000 UNITS 25 MCG TAB PO SCH (08:59)
[2020-12-31] MEDS: PANTOprazole 40 MG TAB PO SCH (08:59)
[2020-12-31] MEDS: FEXOFENADINE 60 MG TAB PO SCH (08:59)
[2020-12-31] MEDS: HYDROCORTISONE 10 MG TAB PO SCH ×2 (09:00→20:16)
[2020-12-31] MEDS: ESCITALOPRAM OXALATE 20 MG TAB PO SCH (09:00)
[2020-12-31] MEDS: rifAXIMin 550 MG TABLET PO SCH ×2 (09:00→20:13)
[2020-12-31] MEDS: rOPINIRole HCL 0.25 MG TABLET PO SCH ×2 (09:00→20:13)
[2020-12-31] MEDS: TOPIRAMATE 100 MG TAB PO SCH ×2 (09:00→20:13)
[2020-12-31] MEDS: levETIRAcetam 500 MG TAB PO SCH ×2 (09:00→20:14)
[2020-12-31] MEDS: CALCIUM CARBONATE 1250MG TAB PO SCH (09:00)
[2020-12-31] MEDS: INSULIN GLARGINE SOLOSTAR 100 UNITS/ML 3 ML PEN SC SCH (09:01)
[2020-12-31] MEDS: INSULIN ASPART 100 UNITS/ML 3 ML PEN SC SCH ×4 (09:01→20:33)
[2020-12-31] MEDS: CEFEPIME 1,000 MG in SYRINGE 0 ML IV SCH ×2 (10:40→20:25)
[2020-12-31] MEDS: ADVANCED PROBIOTIC 1250 MG CAPSULE PO SCH (11:52)
[2020-12-31] MEDS: ZINC SULFATE 220 MG CAPSULE PO SCH (11:52)
[2020-12-31] MEDS: MULTIVITAMIN TAB PO SCH (11:52)
[2020-12-31] MEDS: VITAMIN B COMPLEX TAB PO SCH (11:52)
[2020-12-31] MEDS: ACETAMINOPHEN 500 MG TAB PO SCH (20:15)
[2020-12-31] MEDS: FAMOTIDINE 20 MG TAB PO SCH (20:15)
[2020-12-31] MEDS: ARTIFICIAL TEARS OP SCH (20:25)
--- NOTE | 2020-12-31 21:32 | Hospitalist Progress Note ---
Date of Service December 31, 2020 Assessment & Plan (1) AMS (altered mental status): Plan: likely multifactorial, due to elevated ammonia, hypernatremia UTI - Klebsiella improved the past 24 hours, alert, responsive, ambulating try to discharge tomorrow (2) Hyperammonemia: Plan: high at 160, increased Lactulose to 30 BID she normally is on 30mg daily PRN and takes rifaximin ammonia < 100 today, more alert, conversive go back to once a day dosing tomorrow (3) UTI (urinary tract infection): Plan: culture - Klebsiella treat initially with Cefepime on admission in early November she had the same culture, was treated with Rocephin then discharged on Bactrim, should have worked might need longer course of antibiotics this time Plan: labs in AM PT/OT consult, she would like to try to go home tomorrow afternoon Admission and Anticipated Discharge Date Admission Date: December 29, 2020 Subjective more alert today, more conversive she is eating fairly well, she said she got up and walked with the walker ammonia is down < 100, Na coming down urine culture with Klebsiella, noted prior admission, same culture, treated with Rocephin and discharged on Bactrim will treat with Cefepime for now she is hoping to go home, asked that I call her I called both of Benny's contact numbers with no answer and no voicemail option he has questions about medications he did not call back to the hospital, will need to defer to provider tomorrow or outpatient provider Review of Systems 2 Review of Systems: All systems reviewed & are unremarkable except as noted in Subjective Constitutional: + fatigue and + weakness; no fever Respiratory: no cough and no dyspnea Cardiovascular: no chest pain and no edema Gastrointestinal: no abdominal pain, no nausea, no vomiting, no constipation and no diarrhea/loose stools Musculoskeletal: no back pain and no joint pain Physical Exam Physical Exam: General: well developed, well nourished, no acute distress, comfortable, disheveled Neck: supple, trachea midline, normal thyroid Lungs: clear to auscultation bilaterally, normal respiratory effort, no accessory muscle use, no distress Heart: regular S1 and S2, no murmur, peripheral pulses normal, capillary refill normal, no edema Abdomen: soft, NT, ND, + BS, no hepatomegaly, normal to percussion Extremities: normal in appearance, no cyanosis, no petechiae, strength is 5/5 bilaterally Neuro: awake, cooperative, moves all extremities, no focal motor deficits, CN II-XII intact, sensation in extremities intact, normal speech Skin: warm, dry, no rash, normal turgor Psych: AAOx3, euthymic Results & Data Results & Data ([facility]) Vital Signs (Past 12 Hours) Vital Signs Temp Pulse Pulse Pulse Resp BP BP 12/31/20 19:33 36.7 C 67 18 152/77 H 12/31/20 16:14 36.7 C 77 16 151/76 H 12/31/20 15:37 67 12/31/20 11:37 36.9 C 78 18 152/82 H Pulse Ox 12/31/20 19:33 100 12/31/20 16:14 100 12/31/20 15:37 12/31/20 11:37 96 Laboratory Results Laboratory Results - last 24 hr 12/31/20 12/31/20 12/31/20 07:31 07:57 07:57 Sodium 149 H Potassium 3.8 Chloride 116 H Carbon Dioxide 22 Anion Gap 11.0 BUN 14 Creatinine 0.50 L Est Cr Clr Drug Dosing 129.7 Est GFR ( Amer) 126.3 Est GFR (Non-Af Amer) 109.0 BUN/Creatinine Ratio 28.9 H Glucose 101 H POC Glucose 110 H Calcium 8.2 L Total Bilirubin 2.0 H AST 38 H ALT 49 Alkaline Phosphatase 148 H Ammonia 98.9 H Total Protein 5.5 L Albumin 2.4 L Globulin 3.1 Albumin/Globulin Ratio 0.8 L 12/31/20 12/31/20 12/31/20 11:32 16:49 20:03 Sodium Potassium Chloride Carbon Dioxide Anion Gap BUN Creatinine Est Cr Clr Drug Dosing Est GFR ( Amer) Est GFR (Non-Af Amer) BUN/Creatinine Ratio Glucose POC Glucose 193 H 190 H 221 H Calcium Total Bilirubin AST ALT Alkaline Phosphatase Ammonia Total Protein Albumin Globulin Albumin/Globulin Ratio Medications Administered Current Inpatient Medications Acetaminophen (Acetaminophen 500 Mg Tab) 500 mg PO HS SHEBA Stop: 01/29/21 20:59 Last Admin: 12/31/20 20:15 Dose: 500 mg Documented by: Albuterol (Albuterol Hfa 8 Gm Inhaler) 2 puffs INH Q4R PRN PRN Reason: shortness of breath Stop: 01/28/21 22:16 Albuterol (Albut/Ipratrop 3mg/0.5mg Neb 3 Ml Vial) 3 ml INH QIDR PRN PRN Reason: wheezing Stop: 01/28/21 22:16 Artificial Tears (Artificial Tears) 2 drops OP HS SHEBA Stop: 01/29/21 20:59 Last Admin: 12/31/20 20:25 Dose: 2 drops Documented by: Ascorbic Acid (Ascorbic Acid 500 Mg Tab) 500 mg PO DAILY SHEBA Stop: 01/29/21 08:59 Last Admin: 12/31/20 08:59 Dose: 500 mg Documented by: Benztropine Mesylate (Benztropine Mesylate 1 Mg Tab) 1 mg PO TID SHEBA Stop: 01/28/21 22:59 Last Admin: 12/31/20 20:15 Dose: 1 mg Documented by: Calcium Carbonate (Calcium Carbonate 1250mg Tab) 1,250 mg PO DAILY SHEBA Stop: 01/29/21 08:59 Last Admin: 12/31/20 09:00 Dose: 1,250 mg Documented by: Dextrose (Dextrose 50% 50 Ml Syringe) 25 - 50 ml IV UD PRN; Protocol PRN Reason: Hypoglycemia Protocol Stop: 01/28/21 22:16 Escitalopram Oxalate (Escitalopram Oxalate 20 Mg Tab) 20 mg PO DAILY [facility] Stop: 01/29/21 08:59 Last Admin: 12/31/20 09:00 Dose: 20 mg Documented by: Famotidine (Famotidine 20 Mg Tab) 20 mg PO HS [facility] Stop: 01/28/21 22:59 Last Admin: 12/31/20 20:15 Dose: 20 mg Documented by: Fexofenadine HCl (Fexofenadine 60 Mg Tab) 60 mg PO QAM SHEBA Stop: 01/29/21 08:59 Last Admin: 12/31/20 08:59 Dose: 60 mg Documented by: Fluticasone/Vilanterol (Fluticasone/Vilanterol 200/25mcg 14 Puffs/Inhaler) 1 puffs INH DAILY PRN; Protocol PRN Reason: Shortness Of Breath Stop: 01/28/21 22:51 Glucagon (Glucagon For Inj 1 Mg Vial) 1 mg SQ UD PRN; Protocol PRN Reason: Hypoglycemia Protocol Stop: 01/28/21 22:16 Glucose (Glucose 10 Tabs/Tube) 4 - 8 tabs PO UD PRN; Protocol PRN Reason: Hypoglycemia Protocol Stop: 01/28/21 22:16 Glucose (Glucose 40% Gel 15 Gm Tube) 15 - 30 gm PO UD PRN; Protocol PRN Reason: Hypoglycemia Protocol Stop: 01/28/21 22:16 Heparin Sodium (Porcine) (Heparin 100 Unit/Ml 5ml Flush) 5 ml FLUSH PRN PRN PRN Reason: Flush Stop: 01/29/21 02:24 Last Admin: 12/31/20 10:41 Dose: 5 ml Documented by: Hydrocortisone (Hydrocortisone 10 Mg Tab) 10 mg PO QAM SHEBA Stop: 01/29/21 08:59 Last Admin: 12/31/20 09:00 Dose: 10 mg Documented by: Hydrocortisone (Hydrocortisone 10 Mg Tab) 5 mg PO QPM [facility] Stop: 01/28/21 22:59 Last Admin: 12/31/20 20:16 Dose: 5 mg Documented by: Cefepime HCl 1,000 mg/ Syringe 11.3 mls @ 5.5 mls/min IV Q12 SHEBA Stop: 01/10/21 08:59 Last Admin: 12/31/20 20:25 Dose: 5.5 mls/min Documented by: Insulin Aspart (Insulin Aspart 100 Units/Ml 3 Ml Pen) 0 units SC ACHS [facility] Stop: 01/28/21 22:59 Last Admin: 12/31/20 20:33 Dose: 4 units Documented by: Insulin Glargine (Insulin Glargine Solostar 100 Units/Ml 3 Ml Pen) 30 units SC QAM [facility]; Protocol Stop: 01/30/21 08:59 Last Admin: 12/31/20 09:01 Dose: 30 units Documented by: Lactobacillus Acidoph/Casei/Rhamnos (Advanced Probiotic 1250 Mg Capsule) 2 cap PO QDL SHEBA Stop: 01/29/21 11:29 Last Admin: 12/31/20 11:52 Dose: 2 cap Documented by: Lactulose (Lactulose Syrup 30 Gm/45 Ml Udp) 30 gm PO BID17 SHEBA Stop: 01/29/21 16:59 Last Admin: 12/31/20 18:03 Dose: 30 gm Documented by: Levetiracetam (Levetiracetam 500 Mg Tab) 1,500 mg PO BID SHEBA Stop: 01/28/21 22:59 Last Admin: 12/31/20 20:14 Dose: 1,500 mg Documented by: Levothyroxine Sodium (Levothyroxine Sodium 50 Mcg Tablet) 50 mcg PO DAILYBB [facility] Stop: 01/29/21 06:29 Last Admin: 12/31/20 05:22 Dose: 50 mcg Documented by: Magnesium Oxide (Magnesium Oxide 400 Mg Tab) 400 mg PO QAM [facility] Stop: 01/29/21 08:59 Last Admin: 12/31/20 08:59 Dose: 400 mg Documented by: Miscellaneous (Forteo: Order Awaiting Action) 1 ea N/A QS [facility] Stop: 01/29/21 00:00 Last Admin: 12/31/20 14:28 Dose: Not Given Documented by: Ellyncellaneous (Carbohydrates For Hypoglycemia ) 15 - 30 gm PO UD PRN PRN Reason: Hypoglycemia Protocol Stop: 01/28/21 22:16 Multivitamins (Multivitamin Tab) 1 tab PO QDL [facility] Stop: 01/29/21 11:29 Last Admin: 12/31/20 11:52 Dose: 1 tab Documented by: Oxcarbazepine (Oxcarbazepine 150 Mg Tablet) [facility] Stop: 01/29/21 08:59 Last Admin: 12/31/20 08:58 Dose: 300 mg Documented by: Oxcarbazepine (Oxcarbazepine 150 Mg Tablet) 600 mg PO QPM [facility] Stop: 01/29/21 20:59 Last Admin: 12/31/20 20:13 Dose: 600 mg Documented by: Pantoprazole Sodium (Pantoprazole 40 Mg Tab) [address] [facility]; Protocol Stop: 01/29/21 08:59 Last Admin: 12/31/20 08:59 Dose: 40 mg Documented by: Pravastatin Sodium (Pravastatin Sod 20 Mg Tab) [address] [facility] Stop: 01/29/21 08:59 Last Admin: 12/31/20 08:59 Dose: 20 mg Documented by: Promethazine HCl (Promethazine Hcl 25 Mg Tab) 25 mg PO Q8H PRN PRN Reason: nausea and vomiting Stop: 01/28/21 22:16 Rifaximin (Rifaximin 550 Mg Tablet) 550 mg PO BID [facility] Stop: 01/28/21 22:59 Last Admin: 12/31/20 20:13 Dose: 550 mg Documented by: Ropinirole HCl (Ropinirole Hcl 0.25 Mg Tablet) 0.25 mg PO BID SHEBA Stop: 01/28/21 22:59 Last Admin: 12/31/20 20:13 Dose: 0.25 mg Documented by: Topiramate (Topiramate 100 Mg Tab) 100 mg PO BID SHEBA Stop: 01/28/21 22:59 Last Admin: 12/31/20 20:13 Dose: 100 mg Documented by: Vitamin B Complex (Vitamin B Complex Tab) 1 tab PO QDL SHEBA Stop: 01/29/21 11:29 Last Admin: 12/31/20 11:52 Dose: 1 tab Documented by: Vitamin D (Cholecalciferol 1,000 Units 25 Mcg Tab) 5,000 units PO DAILY SHEBA Stop: 01/29/21 08:59 Last Admin: 12/31/20 08:59 Dose: 5,000 units Documented by: Vitamin E (Tocopheryl, Dl-Alpha 400 Units 180 Mg Cap) 400 units PO Q2D SHEBA Stop: 01/29/21 08:59 Last Admin: 12/30/20 08:51 Dose: 400 units Documented by: Zinc Sulfate (Zinc Sulfate 220 Mg Capsule) 220 mg PO QDL SHEBA Stop: 01/29/21 11:29 Last Admin: 12/31/20 11:52 Dose: 220 mg Documented by: PG Care Time/CCT Total # of Minutes Spent Total Time Spent with Patient: Total time spent is greater than 50% in coordination of care (as documented) at patient's floor/unit and/or counseling patient: Coding Level of Care Code 35660 Subseq Hosp Care Lvl 2 Diagnoses AMS (altered mental status) R41.82 Altered mental status type: unspecified Hyperammonemia E72.20 UTI (urinary tract infection) N30.00 Hematuria presence: without hematuria Urinary tract infection type: acute cystitis (1) AMS (altered mental status) Altered mental status type: unspecified Qualified Code(s): R41.82 - Altered mental status, unspecified (2) UTI (urinary tract infection) Hematuria presence: without hematuria Urinary tract infection type: acute cystitis Qualified Code(s): N30.00 - Acute cystitis without hematuria
[2021-01-01] MEDS: LEVOTHYROXINE SODIUM 50 MCG TABLET PO SCH (05:44)
[2021-01-01 08:24] LABS: Hematocrit (blood only) 30.1 % (37-47); Mean Corpuscular Hemoglobin 37.8 pg (25-34); Mean Corpuscular Hgb Conc 36.5 g/dL (32-36); Mean Corpuscular Volume 103.4 fL (80-100); RDW Coefficient of Variation 13.3 % (11.5-14.5); RDW Standard Deviation 49.5 fL (36.4-46.3); Red Blood Count 2.91 M/uL (4.2-5.4); White Blood Count 3.93 K/uL (4.8-10.8)
[2021-01-01 08:25] LABS: Mean Platelet Volume 9.9 fL (7.4-10.4); Platelet Count 86 K/uL (130-400)
[2021-01-01] MEDS: HYDROCORTISONE 10 MG TAB PO SCH ×2 (08:28→20:19)
[2021-01-01] MEDS: rifAXIMin 550 MG TABLET PO SCH ×2 (08:28→20:21)
[2021-01-01] MEDS: TOPIRAMATE 100 MG TAB PO SCH ×2 (08:28→20:22)
[2021-01-01] MEDS: rOPINIRole HCL 0.25 MG TABLET PO SCH ×2 (08:29→20:22)
[2021-01-01] MEDS: OXcarbazepine 150 MG TABLET PO SCH ×2 (08:29→20:21)
[2021-01-01] MEDS: PRAVASTATIN SOD 20 MG TAB PO SCH (08:29)
[2021-01-01] MEDS: TOCOPHERYL, DL-ALPHA 400 UNITS 180 MG CAP PO SCH (08:29)
[2021-01-01] MEDS: levETIRAcetam 500 MG TAB PO SCH ×2 (08:30→20:20)
[2021-01-01] MEDS: BENZTROPINE MESYLATE 1 MG TAB PO SCH ×3 (08:30→20:18)
[2021-01-01] MEDS: PANTOprazole 40 MG TAB PO SCH (08:31)
[2021-01-01] MEDS: MAGNESIUM OXIDE 400 MG TAB PO SCH (08:31)
[2021-01-01] MEDS: LACTULOSE SYRUP 30 GM/45 ML UDP PO SCH (08:32)
[2021-01-01] MEDS: CALCIUM CARBONATE 1250MG TAB PO SCH (08:33)
[2021-01-01] MEDS: ASCORBIC ACID 500 MG TAB PO SCH (08:33)
[2021-01-01] MEDS: CHOLECALCIFEROL 1,000 UNITS 25 MCG TAB PO SCH (08:34)
[2021-01-01] MEDS: ESCITALOPRAM OXALATE 20 MG TAB PO SCH (08:34)
[2021-01-01] MEDS: FEXOFENADINE 60 MG TAB PO SCH (08:34)
[2021-01-01] MEDS: INSULIN GLARGINE SOLOSTAR 100 UNITS/ML 3 ML PEN SC SCH (08:44)
[2021-01-01] MEDS: INSULIN ASPART 100 UNITS/ML 3 ML PEN SC SCH ×4 (08:45→20:44)
[2021-01-01 08:49] LABS: Basophils # (auto) 0.02 K/uL (0-0.2); Basophils % (auto) 0.5 %; Eosinophils # (auto) 0.07 K/uL (0-0.5); Eosinophils % (auto) 1.8 %; Lymphocytes # (auto) 1.36 K/uL (1.2-3.4); Lymphocytes % (auto) 34.6 %; Monocytes # (auto) 0.37 K/uL (0.11-0.59); Monocytes % (auto) 9.4 %; Neutrophils # (auto) 2.11 K/uL (1.4-6.5); Neutrophils % (auto) 53.7 %; Ovalocytes 1+
[2021-01-01 08:51] LABS: Albumin Level 2.5 gm/dl (3.4-5.0); BUN Creatinine Ratio 19.7 (10-20); Calcium 8.3 mg/dl (8.5-10.1); Creatinine Clr Calc Pharmacy 103.1 ml/min; Est GFR (African American) 118.3 ml/min; Est GFR (Non-African American) 102.1 ml/min; Magnesium 1.6 mg/dl (1.8-2.4); Potassium 3.8 mmol/L (3.5-5.1)
[2021-01-01 08:54] LABS: Albumin Globulin Ratio 0.8 (0.9-2); Bilirubin,Total 2.2 mg/dl (0.2-1); Globulin 3.3 gm/dl (2.5-4.0); Total Protein 5.8 gm/dl (6.4-8.2)
[2021-01-01] MEDS: CIPROFLOXACIN / D5W 400 MG/200 ML BAG IV SCH ×2 (09:38→20:18)
[2021-01-01] MEDS: ZINC SULFATE 220 MG CAPSULE PO SCH (12:44)
[2021-01-01] MEDS: VITAMIN B COMPLEX TAB PO SCH (12:44)
[2021-01-01] MEDS: ADVANCED PROBIOTIC 1250 MG CAPSULE PO SCH (12:44)
[2021-01-01] MEDS: MULTIVITAMIN TAB PO SCH (12:45)
[2021-01-01] MEDS: NYSTATIN SUSP 500,000 U/5 ML UDC PO SCH ×3 (15:53→20:22)
[2021-01-01] MEDS: ACETAMINOPHEN 500 MG TAB PO SCH (20:17)
[2021-01-01] MEDS: FAMOTIDINE 20 MG TAB PO SCH (20:19)
[2021-01-01] MEDS: ARTIFICIAL TEARS OP SCH (20:28)
--- NOTE | 2021-01-01 22:46 | Hospitalist Progress Note ---
Date of Service January 01, 2021 Assessment & Plan (1) Hepatic encephalopathy: Plan: biochemically and clinically improved. MS now at baseline as confirmed w/ . cont rifaximin BID. cont lactulose daily - but adjust to keep BMs 2-3/day. (2) Metabolic encephalopathy: Plan: 2nd to #1 and #3 - improving. (3) UTI (urinary tract infection): Plan: 2nd klebsiella. d/c cefepime - change to IV cipro. listed levaquin "allergy" but suspect this was adverse side effect, not true allergy. observe on cipro. plan 7 days in total of therapy. today is day #4. (4) Pancytopenia: Plan: 2nd cirrhosis b12 level within last year wnl TSH wnl recheck folate (5) Cirrhosis: Plan: STEVE compensated at this time (6) ACTH deficiency: Plan: cont hydrocortisone at home dosing consider small amount of stress dosing if appetite remains poor, etc (7) Secondary adrenal insufficiency: (8) Controlled type 2 diabetes mellitus, with long-term current use of insulin: Plan: BSGs wnl cont lantus cont novolog - may need titration for tighter meal coverage (9) Chronic liver disease and cirrhosis: Plan: compensated at this time (10) Hypothyroidism: Plan: most recent TSH wnl cont synthroid as is (11) Seizure disorder: Plan: cont home meds follows with Dr Gonzalez - [facility] [place] [facility] (12) Suicidal ideation: Plan: psych consult requested 1:1 until seen by psych h/o multiple psych admissions for MDD w/ psychosis, etc (13) Candidiasis of mouth and esophagus: Plan: nystatin solution qid (14) DVT prophylaxis: Plan: SCDs Plan: feels that ropinirole is contributing to lethargy at home reasonable to hold and ask Dr Gonzalez his opinion on this recheck ferritin in am - ropinirole was initiated for RLS? Admission and Anticipated Discharge Date Admission Date: December 29, 2020 Subjective during rounds pt was oriented to person, place and partially time (knew the year, but thought it was ) Mr Munson confirmed w/ me later in the day that this is her new baseline - short term memory loss he also confirmed with me that she is able to do little walking/transferring on her own at home Marcelle denies any significant complaints she reports poor appetite both here and at home denies any stomach pain, chest pain, or dyspnea later in the day - mid-afternoon- I had received a communication from nursing that Marcelle expressed thoughts of dying as well as suicidal ideation she apparently told staff that when she got home she might hurt herself I placed call to psych explaining the above and that patient has previous h/o mental health admissions tele overnight wnl Review of Systems Review of Systems: gen - no fevers, no chills; +fatigue, +anorexia CV - no chest pain pulm - no dyspnea GI - no nausea/emesis/abd pain psych - depression Physical Exam Physical Exam: gen - looks chronically unwell but NAD; tardive dyskinetic movements of face mouth - erythematous, patchy areas on buccal mucosa and palate (suspect thrush) neck - no JVD heart - / GIOVANNI, RRR, s1 s2 lungs - CTA b/l abd - soft NT ND BS+ neuro - muscle wasting of hands, no asterixis ext - no edema, pulses 2+ b/l psych - a/o x 2 Results & Data Results & Data ([facility]) Vital Signs (Past 12 Hours) Vital Signs Temp Pulse Pulse Resp BP Pulse Ox 01/01/21 20:10 36.7 C 82 18 121/76 95 01/01/21 16:00 37.1 C 71 16 126/70 99 01/01/21 14:20 72 01/01/21 11:31 36.8 C 72 16 122/62 97 Laboratory Results Laboratory Results - last 24 hr 01/01/21 01/01/21 01/01/21 07:50 08:11 08:11 WBC 3.93 L RBC 2.91 L Hgb 11.0 L Hct 30.1 L MCV 103.4 H MCH 37.8 H MCHC 36.5 H RDW Std Deviation 49.5 H RDW Coeff of Irina 13.3 Plt Count 86 L MPV 9.9 Immature Gran % (Auto) 0.0 Neut % (Auto) 53.7 Lymph % (Auto) 34.6 Wilcox % (Auto) 9.4 Eos % (Auto) 1.8 Baso % (Auto) 0.5 Neut # (Auto) 2.11 Lymph # (Auto) 1.36 Wilcox # (Auto) 0.37 Eos # (Auto) 0.07 Baso # (Auto) 0.02 Immature Gran # (Auto) 0.00 Ovalocytes 1+ Sodium 144 Potassium 3.8 Chloride 116 H Carbon Dioxide 23 Anion Gap 5.0 BUN 12 Creatinine 0.61 Est Cr Clr Drug Dosing 103.1 Est GFR ( Amer) 118.3 Est GFR (Non-Af Amer) 102.1 BUN/Creatinine Ratio 19.7 Glucose 115 H POC Glucose 114 H Calcium 8.3 L Magnesium 1.6 L Total Bilirubin 2.2 H AST 40 H ALT 51 Alkaline Phosphatase 144 H Ammonia Total Protein 5.8 L Albumin 2.5 L Globulin 3.3 Albumin/Globulin Ratio 0.8 L 01/01/21 01/01/21 01/01/21 08:11 11:47 16:19 WBC RBC Hgb Hct MCV MCH MCHC RDW Std Deviation RDW Coeff of Irina Plt Count MPV Immature Gran % (Auto) Neut % (Auto) Lymph % (Auto) Wilcox % (Auto) Eos % (Auto) Baso % (Auto) Neut # (Auto) Lymph # (Auto) Wilcox # (Auto) Eos # (Auto) Baso # (Auto) Immature Gran # (Auto) Ovalocytes Sodium Potassium Chloride Carbon Dioxide Anion Gap BUN Creatinine Est Cr Clr Drug Dosing Est GFR ( Amer) Est GFR (Non-Af Amer) BUN/Creatinine Ratio Glucose POC Glucose 230 H 190 H Calcium Magnesium Total Bilirubin AST ALT Alkaline Phosphatase Ammonia 105.5 H Total Protein Albumin Globulin Albumin/Globulin Ratio 01/01/21 20:44 WBC RBC Hgb Hct MCV MCH MCHC RDW Std Deviation RDW Coeff of Irina Plt Count MPV Immature Gran % (Auto) Neut % (Auto) Lymph % (Auto) Wilcox % (Auto) Eos % (Auto) Baso % (Auto) Neut # (Auto) Lymph # (Auto) Wilcox # (Auto) Eos # (Auto) Baso # (Auto) Immature Gran # (Auto) Ovalocytes Sodium Potassium Chloride Carbon Dioxide Anion Gap BUN Creatinine Est Cr Clr Drug Dosing Est GFR ( Amer) Est GFR (Non-Af Amer) BUN/Creatinine Ratio Glucose POC Glucose 261 H Calcium Magnesium Total Bilirubin AST ALT Alkaline Phosphatase Ammonia Total Protein Albumin Globulin Albumin/Globulin Ratio PG Care Time/CCT Total # of Minutes Spent Total Time Spent with Patient: Total time spent is greater than 50% in coordination of care (as documented) at patient's floor/unit and/or counseling patient: Coding Level of Care Code 92728 Subseq Hosp Care Lv 3 Diagnoses Hepatic encephalopathy K72.90 Metabolic encephalopathy G93.41 UTI (urinary tract infection) N30.00 Hematuria presence: without hematuria Urinary tract infection type: acute cystitis Pancytopenia D61.818 Cirrhosis K74.60 ACTH deficiency E23.6 Secondary adrenal insufficiency E27.49 Controlled type 2 diabetes mellitus, with long-term current use of insulin E11.69; Z79.4 Diabetes mellitus complication status: with other specified complication Chronic liver disease and cirrhosis K74.60; K76.9 Hypothyroidism E03.9 Hypothyroidism type: unspecified Seizure disorder G40.909 Suicidal ideation R45.851 DVT prophylaxis Z29.9 Candidiasis of mouth and esophagus B37.81; B37.0 (1) UTI (urinary tract infection) Hematuria presence: without hematuria Urinary tract infection type: acute cystitis Qualified Code(s): N30.00 - Acute cystitis without hematuria (2) Controlled type 2 diabetes mellitus, with long-term current use of insulin Diabetes mellitus complication status: with other specified complication Qualified Code(s): E11.69 - Type 2 diabetes mellitus with other specified complication; Z79.4 - MCFP (current) use of insulin (3) Hypothyroidism Hypothyroidism type: unspecified Qualified Code(s): E03.9 - Hypothyroidism, unspecified
[2021-01-02 05:54] LABS: Hematocrit (blood only) 26.6 % (37-47); Hemoglobin 9.8 g/dL (12.0-16.0); Mean Corpuscular Hemoglobin 38.3 pg (25-34); Mean Corpuscular Hgb Conc 36.8 g/dL (32-36); Mean Corpuscular Volume 103.9 fL (80-100); RDW Coefficient of Variation 13.4 % (11.5-14.5); RDW Standard Deviation 50.1 fL (36.4-46.3); Red Blood Count 2.56 M/uL (4.2-5.4); White Blood Count 3.78 K/uL (4.8-10.8)
[2021-01-02 05:55] LABS: Mean Platelet Volume 9.4 fL (7.4-10.4); Platelet Count 83 K/uL (130-400)
[2021-01-02] MEDS: LEVOTHYROXINE SODIUM 50 MCG TABLET PO SCH (05:59)
[2021-01-02 06:16] LABS: Basophils # (auto) 0.03 K/uL (0-0.2); Basophils % (auto) 0.8 %; Eosinophils % (auto) 2.6 %; Lymphocytes # (auto) 1.24 K/uL (1.2-3.4); Lymphocytes % (auto) 32.8 %; Monocytes # (auto) 0.44 K/uL (0.11-0.59); Monocytes % (auto) 11.6 %; Neutrophils # (auto) 1.97 K/uL (1.4-6.5); Neutrophils % (auto) 52.2 %; RBC Morphology Unremarkable
[2021-01-02] MEDS: MAGNESIUM SULFATE / D5W 1 GM/100 ML BAG IV SCH ×2 (08:13→10:16)
[2021-01-02] MEDS: FEXOFENADINE 60 MG TAB PO SCH (08:14)
[2021-01-02] MEDS: ESCITALOPRAM OXALATE 20 MG TAB PO SCH (08:14)
[2021-01-02] MEDS: PRAVASTATIN SOD 20 MG TAB PO SCH (08:14)
[2021-01-02] MEDS: CALCIUM CARBONATE 1250MG TAB PO SCH (08:14)
[2021-01-02] MEDS: BENZTROPINE MESYLATE 1 MG TAB PO SCH ×2 (08:15→14:27)
[2021-01-02] MEDS: CHOLECALCIFEROL 1,000 UNITS 25 MCG TAB PO SCH (08:15)
[2021-01-02] MEDS: levETIRAcetam 500 MG TAB PO SCH (08:15)
[2021-01-02] MEDS: PANTOprazole 40 MG TAB PO SCH (08:15)
[2021-01-02] MEDS: OXcarbazepine 150 MG TABLET PO SCH (08:15)
[2021-01-02] MEDS: ASCORBIC ACID 500 MG TAB PO SCH (08:16)
[2021-01-02] MEDS: NYSTATIN SUSP 500,000 U/5 ML UDC PO SCH ×2 (08:16→13:17)
[2021-01-02] MEDS: HYDROCORTISONE 10 MG TAB PO SCH (08:16)
[2021-01-02] MEDS: TOPIRAMATE 100 MG TAB PO SCH (08:17)
[2021-01-02] MEDS: rifAXIMin 550 MG TABLET PO SCH (08:17)
[2021-01-02] MEDS: LACTULOSE SYRUP 30 GM/45 ML UDP PO SCH (08:17)
[2021-01-02] MEDS: MAGNESIUM OXIDE 400 MG TAB PO SCH (08:17)
[2021-01-02] MEDS: INSULIN GLARGINE SOLOSTAR 100 UNITS/ML 3 ML PEN SC SCH (08:18)
[2021-01-02] MEDS: INSULIN ASPART 100 UNITS/ML 3 ML PEN SC SCH ×2 (08:19→13:07)
[2021-01-02] MEDS ORDERED: FLUARIX QUADRIVALENT 0.5 ML SYR IM ONE (10:00)
[2021-01-02] MEDS: CIPROFLOXACIN / D5W 400 MG/200 ML BAG IV SCH (12:03)
[2021-01-02] MEDS: ADVANCED PROBIOTIC 1250 MG CAPSULE PO SCH (13:05)
[2021-01-02] MEDS: MULTIVITAMIN TAB PO SCH (13:05)
[2021-01-02] MEDS: ZINC SULFATE 220 MG CAPSULE PO SCH (13:05)
[2021-01-02] MEDS: VITAMIN B COMPLEX TAB PO SCH (13:05)
[2021-01-02] MEDS: HEPARIN 100 UNIT/ML 5ML FLUSH FLUSH PRN ×2 (14:32→17:37)
--- NOTE | 2021-01-02 15:23 | Psychiatric Consultation ---
Date of Consultation January 02, 2021 Impression / Recommendations Impression Diagnostically Marcelle's presentation with intermittent SI, now resolved is consistent with BPD which has been an established diagnosis. It is not uncommon that SI should emerge during periods of distress or pain especially given likely emotional and executive functioning disinhibition in the context of hepatic encephalopathy and medical illnesses. In terms of risk is she deemed to be at low acute risk given denial of SI on assessments by both psych nurse liasons as well as with me, improvement in subjective mood, future-orientation, coping skills, and strong and convincing reasons to live. 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 At this time there are no clear factors for inpatient treatment to modify, this can reinforce maladaptive coping skills and lead to worsening of acute and chronic risk, this is often contraindicated due to the worsening of the patient's prognosis, there is no acute risk to modify. As of now there is no clear acute/imminent risk of harm to self however, based upon any emergence of consistent SI (for multiple days), self-harming behaviors, worsening medical prognosis, or loss of supports/reasons to live, the chronic risk may then transform into a period of acuity. Provided education and recommendations of treatment options and behavioral strategies including utilizing supports and distraction which can help to reduce their acute and chronic risk which they were receptive to trying. Also discussed resources and ways to add additional protective factors and positive supports to their life to reduce elements of chronic risk. 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 psychiatric medications including lexapro 20 mg qd -if safe with her other medications (no QTc concern) could consider addition of melatonin 3 mg qhs or mirtazapine 15 mg qHS by outpatient provider to help with sleep which she identifies as her only psychiatric concern Risk Factors Assessment Do You Have Access To A Gun?: No Psych History Identifying Data 55 yo woman with extensive medical history (including cirrhosis with periods of encephalopathy and seizure disorder) and psychiatric history of BPD, depression, opioid use disorder, SI, and anxiety who was admitted medically for somnolence and hyperglycemia. Psychiatry was consulted for diagnostic clarification, risk assessment and appropriate disposition after patient made suicidal statements and concern for possible undertreated depression. Chief Complaint "I'm much better today". History of Present Illness Marcelle notes that she has a history of depression but that her lexapro has been working well and she has no side effects from it. She reports good mood today and denies any SI. She notes that she made a suicidal statement yesterday ashley monteiro she was having "a tough day" but that today her pain is better controlled and she has found her doctors to be very supportive and helpful which has made her feel well cared for. She can speak to coping skills should SI return or when things are difficult like talking to a friend and that she has many reasons to live including her friends and . She's future-oriented about taking her to dinner at [employer] or [employer] for his birthday in 2.5 weeks. She likes her primary care provider and feels they do a good job with her medications. She wonders if there are other medications for anxiety or sleep since she saw a TV ad for rexulti and she wonders if this would be helpful. We discussed that this is an antipsychotic and would be contraindicated given her seizures and would not help treat her psychiatric conditions. She agreed with this and feels the lexapro is a good choice for her as she's taken it for awhile and tolerates it well. Past Psychiatric History Previous Psych History: BPD, anxiety, depression Outpatient Services: Saw providers through [facility], last 1.5 years ago but she didn't like them so prefers to have her PCP prescribe her medications Previous Psych Admissions: yes multiple Do You Have Access To A Gun?: No History of Previous Suicide Attempt: Yes Describe Attempts in the Past: overused insulin in an attempt Past Medication Trials: multiple per chart review Allergies Allergy/AdvReac Type Severity Reaction Status Date / Time metronidazole Allergy Severe SEIZURE Verified 12/29/20 15:50 tramadol Allergy Severe SEIZURES Verified 12/29/20 15:50 amoxicillin Allergy Intermediate SEE COMMENT Verified 12/29/20 15:50 baclofen Allergy Intermediate RASH Verified 12/29/20 15:50 butalbital Allergy Intermediate HIVES Verified 12/29/20 15:50 ceftriaxone [From Rocephin] Allergy Intermediate Hives Verified 12/29/20 15:50 dicyclomine Allergy Intermediate HIVES Verified 12/29/20 15:50 pollen extracts Allergy Intermediate Hives Verified 12/29/20 15:50 Sulfa (Sulfonamide Allergy Intermediate CAUSES Verified 12/29/20 15:50 Antibiotics) BLACK STOOLS Tetracyclines Allergy Intermediate DOXYCYCLINE Verified 12/29/20 15:50 -HIVES adhesive Allergy Mild RASH, Verified 12/29/20 15:50 DUODERM=RED,ITCHY celecoxib Allergy Mild HIVES Verified 12/29/20 15:50 sulindac Allergy Mild ALLERGY Verified 12/29/20 15:50 LISTED "CLONDORAL"--HIVES Cephalosporins AdvReac Severe TURNS Verified 12/29/20 15:50 STOOL VERY DARK levofloxacin [From Levaquin] AdvReac Severe Vomiting Verified 12/29/20 15:50 metoclopramide AdvReac Severe SEIZURES Verified 12/29/20 15:50 paroxetine [From Paxil] AdvReac Severe Vomiting Verified 12/29/20 15:50 dextromethorphan AdvReac Mild Vomiting Verified 12/29/20 15:50 Home Medications Medication Instructions Recorded Confirmed Type multivitamin (Multiple Vitamins) 1 tab PO QDL 12/26/17 12/29/20 History lactobacillus combination no.4 3 1 mmu cells PO QDL 09/20/18 12/29/20 History billion cell capsule (Probiotic) vitamin A 2,400 mcg capsule 8,000 unit PO QDL 09/20/18 12/29/20 History vitamin B complex 1 tab PO QDL 09/20/18 12/29/20 History zinc 50 mg tablet 50 mg PO QDL 02/09/19 12/29/20 History epinephrine 0.3 mg/0.3 mL 0.3 mg IM Q10M PRN 04/02/19 12/29/20 History injection, auto-injector (EpiPen 2-Garret) lecithin 1,200 mg capsule 1,200 mg PO QDL 04/29/19 12/29/20 History ipratropium 0.5 mg-albuterol 3 mg 3 ml INH QID PRN #90 ml 07/30/19 12/29/20 Rx (2.5 mg base)/3 mL nebulization soln [id number] 2 drops OP TID 10/31/19 12/29/20 History 80 0.5 %-1 %-0.5 % eye drops (Refresh Optive Advanced) acetaminophen 500 mg tablet 1,000 mg PO HS 01/09/20 12/29/20 History (Acetaminophen Extra Strength) calcium carbonate 500 mg calcium 500 mg PO DAILY 01/27/20 12/29/20 History (1,250 mg) tablet (Calcium 500) rimegepant 75 mg disintegrating 75 mg PO DAILY PRN 30 Days #8 tab 03/21/20 12/29/20 Rx tablet (Nurtec ODT) fexofenadine 60 mg tablet 60 mg PO QAM 04/12/20 12/29/20 History topiramate 100 mg tablet 100 mg PO BID #60 tab 05/17/20 12/29/20 Rx albuterol sulfate 90 mcg/actuation 2 puff INHALATION Q4H PRN #1 05/31/20 12/29/20 Rx aerosol inhaler inhaler cranberry 400 mg capsule 400 mg PO BID 06/08/20 12/29/20 History magnesium oxide 400 mg (241.3 mg 400 mg PO QAM 06/29/20 12/29/20 History magnesium) tablet rifaximin 550 mg tablet (Xifaxan) 550 mg PO BID #60 tab 07/24/20 12/29/20 Rx insulin aspart U-100 100 unit/mL 15 - 25 unit SQ TID #30 ml MDD 60 09/28/20 12/29/20 Rx (3 mL) subcutaneous pen (Novolog units Flexpen U-100 Insulin aspart) budesonide-formoterol HFA 160 2 puff INHALATION BID PRN inhaler 10/03/20 12/29/20 History mcg-4.5 mcg/actuation aerosol inhaler (Symbicort) insulin degludec 100 unit/mL (3 30 unit SUBCUT QAM ml 10/03/20 12/29/20 History mL) subcutaneous pen (Tresiba FlexTouch U-100 insulin) benztropine 1 mg tablet 1 mg PO TID 30 Days #90 tab 10/07/20 12/29/20 Rx promethazine 25 mg tablet 25 mg PO Q8H PRN #10 tab 10/11/20 12/29/20 Rx levetiracetam 750 mg tablet 1,500 mg PO BID 30 Days #120 tab 10/30/20 12/29/20 Rx levothyroxine 50 mcg tablet 50 mcg PO QAM #30 tab 11/10/20 12/29/20 Rx (Euthyrox) omeprazole 40 mg capsule,delayed 40 mg PO QAM #90 cap 11/15/20 12/29/20 Rx release ascorbate calcium (vitamin C) 500 500 mg PO DAILY 11/16/20 12/29/20 History mg tablet famotidine 20 mg tablet 20 mg PO HS tab 11/16/20 12/29/20 History vitamin E (dl, acetate) 180 mg 180 mg PO Q OTHER DAY cap 11/16/20 12/29/20 History (400 unit) capsule cholecalciferol (vitamin D3) 25 5,000 unit PO DAILY cap 11/30/20 12/29/20 History mcg (1,000 unit) capsule (Vitamin D3) hydrocortisone 10 mg tablet See Rx Instructions .ROUTE 11/30/20 12/29/20 History .COMPLEX tab oxcarbazepine 300 mg tablet See Rx Instructions .ROUTE 11/30/20 12/29/20 History .COMPLEX tab pravastatin 20 mg tablet 20 mg PO QAM 12/05/20 12/29/20 History teriparatide 20 mcg/dose (620 20 mcg SUBCUT PM 12/05/20 12/29/20 History mcg/2.48 mL) subcutaneous pen injector (Forteo) ropinirole 0.25 mg tablet 0.25 mg PO BID 30 Days #60 tab 12/19/20 12/29/20 Rx escitalopram oxalate 20 mg tablet 20 mg PO DAILY 12/29/20 12/29/20 History lactulose 20 gram/30 mL oral 30 g PO QAM PRN 12/29/20 12/29/20 History solution Family History unknown adopted Substance Abuse History denies any current or history of use Personal History Living Arrangements: Home Born In: [place] Employment Status: Disabled Marital Status: Beliefs That Will Affect Care: None Patient History Medical History ACTH deficiency Chronic liver disease and cirrhosis Controlled type 2 diabetes mellitus, with long-term current use of insulin Depression Frequent falls See care alert special indicator. H/O osteoporotic pathological fracture Hepatic encephalopathy HX>ON XIFAXAN Hypothyroidism Migraine Myoclonic seizure "FREQUENT MYOCLONIC SEIZURES" FOLLOWS WITH DR. YANG Nonalcoholic fatty liver disease Pancytopenia Chronic. Follows with cancer center. Platelets have been > 100 since 10/2019, WNL on 05/23 labs. H/H stable in 8-10 range. Parkinsonism Secondary adrenal insufficiency Seizure disorder (05/26/11) + PSEUDOSEIZURES Sleepiness Suicidal ideation DENIES ANY CURRENT PROBLEM Surgical History Femur fracture, right SPIRAL FRACTURE REPAIRED (HARDWARE REPAIRED) History of ankle surgery RT/LEFT History of appendectomy History of cholecystectomy History of colonoscopy History of esophagogastroduodenoscopy (EGD) History of kyphoplasty History of open reduction and internal fixation (ORIF) procedure RT HIP History of surgery (~06/02/20) screw/plate removal from left humerus History of surgery on arm LEFT (HARDWARE INTACT) History of tooth extraction History of vascular access device right A port Hx of carpal tunnel repair RT/LEFT Hx of cataract extraction RT/LEFT S/P laminectomy lumbar spine S/P nasal surgery nasal bone fracture repair S/P TIFFANIE-BSO (1997) Family History Other Adopted No pertinent family history Social History Smoking Status: Unknown if ever smoked Tobacco Type: Cigarettes Second Hand Exposure: No; Hx Alcohol Use: No Hx Substance Use: No Preferred Language: Algerian Communication Ability: Effective Visual Impairment: No Limitations Sport Intern Required: No Beliefs That Will Affect Care: None marital status: . Current Living Situation: Spouse Current Living Situation Comment: Lives with Benny current occupational status: unemployed and disabled How many Children do You have: 0 Feels Safe at Home: Yes Seatbelt Use: always Assistive Devices: Walker and Wheelchair Physical Exam Psychiatric: Orientation: alert, oriented to person, oriented to place and cooperative Apperance: appropriately dressed Eye Contact: good eye contact tardive dyskinesia/neck twitching/tic Speech: normal rate/rhythm/volume of speech Affect: euthymic affect "much better" Thought Process: goal directed thought process Thought Content: reality based without delusions Suicidal Thoughts: denies suicidal thoughts Homicidal Thoughts: denies homicidal thoughts Hallucinations: no auditory hallucinations and no visual hallucinations Cognition: recent memory grossly intact and attention grossly intact Estimated Intelligence: consistent with education level Insight: + fair insight Judgement: + fair judgement Vital Signs (Past 24 Hours): Last Vital Signs Temp 36.6 C 01/02/21 03:35 Pulse 71 01/02/21 15:02 Resp 20 01/02/21 03:35 BP 123/72 01/02/21 03:35 Pulse Ox 95 01/02/21 03:35 Review of Systems All systems reviewed & are unremarkable except as noted in HPI & below endorsed neck pain which a heating pad was helping to resolve Results & Data (PSY) Medications Administered Acetaminophen (Acetaminophen 500 Mg Tab) 500 mg PO HS SHEBA Stop: 01/29/21 20:59 Last Admin: 01/01/21 20:17 Dose: 500 mg Documented by: [id number] Admin: 12/31/20 20:15 Dose: 500 mg Documented by: [id number] Admin: 12/30/20 20:23 Dose: 500 mg Documented by: [id number] Artificial Tears (Artificial Tears) 2 drops OP HS SHEBA Stop: 01/29/21 20:59 Last Admin: 01/01/21 20:28 Dose: 2 drops Documented by: [id number] Admin: 12/31/20 20:25 Dose: 2 drops Documented by: [id number] Admin: 12/30/20 20:43 Dose: 2 drops Documented by: [id number] Ascorbic Acid (Ascorbic Acid 500 Mg Tab) 500 mg PO DAILY SHEBA Stop: 01/29/21 08:59 Last Admin: 01/02/21 08:16 Dose: 500 mg Documented by: [id number] Admin: 01/01/21 08:33 Dose: 500 mg Documented by: [id number] Admin: 12/31/20 08:59 Dose: 500 mg Documented by: [id number] Admin: 12/30/20 08:49 Dose: 500 mg Documented by: [id number] Benztropine Mesylate (Benztropine Mesylate 1 Mg Tab) 1 mg PO TID SHEBA Stop: 01/28/21 22:59 Last Admin: 01/02/21 14:27 Dose: 1 mg Documented by: [id number] Admin: 01/02/21 08:15 Dose: 1 mg Documented by: [id number] Admin: 01/01/21 20:18 Dose: 1 mg Documented by: [id number] Admin: 01/01/21 15:53 Dose: 1 mg Documented by: [id number] Admin: 01/01/21 08:30 Dose: 1 mg Documented by: [id number] Admin: 12/31/20 20:15 Dose: 1 mg Documented by: [id number] Admin: 12/31/20 14:27 Dose: 1 mg Documented by: [id number] Admin: 12/31/20 08:59 Dose: 1 mg Documented by: [id number] Admin: 12/30/20 20:22 Dose: 1 mg Documented by: [id number] Admin: 12/30/20 15:09 Dose: 1 mg Documented by: [id number] Admin: 12/30/20 08:51 Dose: 1 mg Documented by: [id number] Admin: 12/30/20 00:05 Dose: 1 mg Documented by: [id number] Calcium Carbonate (Calcium Carbonate 1250mg Tab) 1,250 mg PO DAILY SHEBA Stop: 01/29/21 08:59 Last Admin: 01/02/21 08:14 Dose: 1,250 mg Documented by: [id number] Admin: 01/01/21 08:33 Dose: 1,250 mg Documented by: [id number] Admin: 12/31/20 09:00 Dose: 1,250 mg Documented by: [id number] Admin: 12/30/20 08:50 Dose: 1,250 mg Documented by: [id number] Escitalopram Oxalate (Escitalopram Oxalate 20 Mg Tab) 20 mg PO DAILY SHEBA Stop: 01/29/21 08:59 Last Admin: 01/02/21 08:14 Dose: 20 mg Documented by: [id number] Admin: 01/01/21 08:34 Dose: 20 mg Documented by: [id number] Admin: 12/31/20 09:00 Dose: 20 mg Documented by: [id number] Admin: 12/30/20 08:50 Dose: 20 mg Documented by: [id number] Famotidine (Famotidine 20 Mg Tab) 20 mg PO HS SHEBA Stop: 01/28/21 22:59 Last Admin: 01/01/21 20:19 Dose: 20 mg Documented by: [id number] Admin: 12/31/20 20:15 Dose: 20 mg Documented by: [id number] Admin: 12/30/20 20:23 Dose: 20 mg Documented by: [id number] Admin: 12/30/20 00:05 Dose: 20 mg Documented by: [id number] Fexofenadine HCl (Fexofenadine 60 Mg Tab) 60 mg PO QAM SHEBA Stop: 01/29/21 08:59 Last Admin: 01/02/21 08:14 Dose: 60 mg Documented by: [id number] Admin: 01/01/21 08:34 Dose: 60 mg Documented by: [id number] Admin: 12/31/20 08:59 Dose: 60 mg Documented by: [id number] Admin: 12/30/20 08:50 Dose: 60 mg Documented by: [id number] Heparin Sodium (Porcine) (Heparin 100 Unit/Ml 5ml Flush) 5 ml FLUSH PRN PRN PRN Reason: Flush Stop: 01/29/21 02:24 Last Admin: 01/02/21 14:32 Dose: 5 ml Documented by: [id number] Admin: 12/31/20 10:41 Dose: 5 ml Documented by: [id number] Admin: 12/31/20 08:00 Dose: 5 ml Documented by: [id number] Hydrocortisone ([facility]is[facility] 10 Mg Tab) [facility] Stop: 01/29/21 08:59 Last Admin: 01/02/21 08:16 Dose: 10 mg Documented by: [id number] Admin: 01/01/21 08:28 Dose: 10 mg Documented by: [id number] Admin: 12/31/20 09:00 Dose: 10 mg Documented by: [id number] Admin: 12/30/20 08:49 Dose: 10 mg Documented by: [id number] Hydrocortisone (Hydrocortisone 10 Mg Tab) 5 mg PO QPM [facility] Stop: 01/28/21 22:59 Last Admin: 01/01/21 20:19 Dose: 5 mg Documented by: [id number] Admin: 12/31/20 20:16 Dose: 5 mg Documented by: [id number] Admin: 12/30/20 20:23 Dose: 5 mg Documented by: [id number] Admin: 12/30/20 00:05 Dose: 5 mg Documented by: [id number] Insulin Aspart (Insulin Aspart 100 Units/Ml 3 Ml Pen) 0 units SC ACHS [facility] Stop: 01/28/21 22:59 Last Admin: 01/02/21 13:07 Dose: 13 units Documented by: [id number] Cosigned by: [id number] Admin: 01/02/21 08:19 Dose: 14 units Documented by: [id number] Cosigned by: [id number] Admin: 01/01/21 20:44 Dose: 6 units Documented by: [id number] Cosigned by: [id number] Admin: 01/01/21 17:33 Dose: 12 units Documented by: [id number] Cosigned by: [id number] Admin: 01/01/21 12:45 Dose: 10 units Documented by: [id number] Cosigned by: [id number] Admin: 01/01/21 08:45 Dose: 2 units Documented by: [id number] Cosigned by: [id number] Admin: 12/31/20 20:33 Dose: 4 units Documented by: [id number] Cosigned by: [id number] Admin: 12/31/20 18:03 Dose: 6 units Documented by: [id number] Cosigned by: [id number] Admin: 12/31/20 12:18 Dose: 7 units Documented by: [id number] Cosigned by: [id number] Admin: 12/31/20 09:01 Dose: 2 units Documented by: [id number] Cosigned by: [id number] Admin: 12/30/20 20:38 Dose: 6 units Documented by: [id number] Cosigned by: [id number] Admin: 12/30/20 17:52 Dose: 3 units Documented by: [id number] Cosigned by: [id number] Admin: 12/30/20 12:22 Dose: 3 units Documented by: [id number] Cosigned by: [id number] Admin: 12/30/20 08:55 Dose: Not Given Documented by: [id number] Cosigned by: [id number] Admin: 12/30/20 00:03 Dose: Not Given Documented by: [id number] Insulin Glargine (Insulin Glargine Solostar 100 Units/Ml 3 Ml Pen) 30 units SC QAM SHEBA; Protocol Stop: 01/30/21 08:59 Last Admin: 01/02/21 08:18 Dose: 30 units Documented by: [id number] Cosigned by: [id number] Admin: 01/01/21 08:44 Dose: 30 units Documented by: [id number] Cosigned by: [id number] Admin: 12/31/20 09:01 Dose: 30 units Documented by: [id number] Cosigned by: [id number] Lactobacillus Acidoph/Casei/Rhamnos (Advanced Probiotic 1250 Mg Capsule) 2 cap PO QDL SHEBA Stop: 01/29/21 11:29 Last Admin: 01/02/21 13:05 Dose: 2 cap Documented by: [id number] Admin: 01/01/21 12:44 Dose: 2 cap Documented by: [id number] Admin: 12/31/20 11:52 Dose: 2 cap Documented by: [id number] Admin: 12/30/20 12:21 Dose: 2 cap Documented by: [id number] Lactulose (Lactulose Syrup 30 Gm/45 Ml Udp) 30 gm PO DAILY SHEBA Stop: 01/31/21 08:59 Last Admin: 01/02/21 08:17 Dose: 30 gm Documented by: [id number] Admin: 01/01/21 08:32 Dose: 30 gm Documented by: [id number] Levetiracetam (Levetiracetam 500 Mg Tab) 1,500 mg PO BID SHEBA Stop: 01/28/21 22:59 Last Admin: 01/02/21 08:15 Dose: 1,500 mg Documented by: [id number] Admin: 01/01/21 20:20 Dose: 1,500 mg Documented by: [id number] Admin: 01/01/21 08:30 Dose: 1,500 mg Documented by: [id number] Admin: 12/31/20 20:14 Dose: 1,500 mg Documented by: [id number] Admin: 12/31/20 09:00 Dose: 1,500 mg Documented by: [id number] Admin: 12/30/20 20:21 Dose: 1,500 mg Documented by: [id number] Admin: 12/30/20 10:02 Dose: 1,500 mg Documented by: [id number] Admin: 12/30/20 00:06 Dose: 1,500 mg Documented by: [id number] Levothyroxine Sodium (Levothyroxine Sodium 50 Mcg Tablet) 50 mcg PO DAILYBB SHEBA Stop: 01/29/21 06:29 Last Admin: 01/02/21 05:59 Dose: 50 mcg Documented by: [id number] Admin: 01/01/21 05:44 Dose: 50 mcg Documented by: [id number] Admin: 12/31/20 05:22 Dose: 50 mcg Documented by: [id number] Admin: 12/30/20 06:33 Dose: 50 mcg Documented by: [id number] Magnesium Oxide (Magnesium Oxide 400 Mg Tab) 400 mg PO QAM SHEBA Stop: 01/29/21 08:59 Last Admin: 01/02/21 08:17 Dose: 400 mg Documented by: [id number] Admin: 01/01/21 08:31 Dose: 400 mg Documented by: [id number] Admin: 12/31/20 08:59 Dose: 400 mg Documented by: [id number] Admin: 12/30/20 08:49 Dose: 400 mg Documented by: [id number] Miscellaneous (Forteo: Order Awaiting Action) 1 ea N/A QS [facility] Stop: 01/29/21 00:00 Last Admin: 01/02/21 08:13 Dose: Not Given Documented by: [id number] Admin: 01/02/21 00:06 Dose: Not Given Documented by: [id number] Admin: 01/01/21 16:55 Dose: Not Given Documented by: [id number] Admin: 01/01/21 08:28 Dose: Not Given Documented by: [id number] Admin: 12/31/20 23:42 Dose: Not Given Documented by: [id number] Admin: 12/31/20 14:28 Dose: Not Given Documented by: [id number] Admin: 12/31/20 07:39 Dose: Not Given Documented by: [id number] Admin: 12/30/20 23:10 Dose: Not Given Documented by: [id number] Admin: 12/30/20 14:35 Dose: Not Given Documented by: [id number] Admin: 12/30/20 08:43 Dose: Not Given Documented by: [id number] Admin: 12/30/20 00:06 Dose: Not Given Documented by: [id number] Multivitamins (Multivitamin Tab) 1 tab PO QDL [facility] Stop: 01/29/21 11:29 Last Admin: 01/02/21 13:05 Dose: 1 tab Documented by: [id number] Admin: 01/01/21 12:45 Dose: 1 tab Documented by: [id number] Admin: 12/31/20 11:52 Dose: 1 tab Documented by: [id number] Admin: 12/30/20 12:21 Dose: 1 tab Documented by: [id number] Nystatin (Nystatin Susp 500,000 U/5 Ml Udc) 5 ml PO QID [facility] Stop: 01/11/21 13:24 Last Admin: 01/02/21 13:17 Dose: Not Given Documented by: [id number] Admin: 01/02/21 08:16 Dose: 5 ml Documented by: [id number] Admin: 01/01/21 20:22 Dose: 5 ml Documented by: [id number] Admin: 01/01/21 17:33 Dose: 5 ml Documented by: [id number] Admin: 01/01/21 15:53 Dose: 5 ml Documented by: [id number] Oxcarbazepine (Oxcarbazepine 150 Mg Tablet) [facility] Stop: 01/29/21 08:59 Last Admin: 01/02/21 08:15 Dose: 300 mg Documented by: [id number] Admin: 01/01/21 08:29 Dose: 300 mg Documented by: [id number] Admin: 12/31/20 08:58 Dose: 300 mg Documented by: [id number] Admin: 12/30/20 08:49 Dose: 300 mg Documented by: [id number] Oxcarbazepine (Oxcarbazepine 150 Mg Tablet) 600 mg PO QPM [facility] Stop: 01/29/21 20:59 Last Admin: 01/01/21 20:21 Dose: 600 mg Documented by: [id number] Admin: 12/31/20 20:13 Dose: 600 mg Documented by: [id number] Admin: 12/30/20 20:24 Dose: 600 mg Documented by: [id number] Pantoprazole Sodium (Pantoprazole 40 Mg Tab) 40 mg PO [facility]; Protocol Stop: 01/29/21 08:59 Last Admin: 01/02/21 08:15 Dose: 40 mg Documented by: [id number] Admin: 01/01/21 08:31 Dose: 40 mg Documented by: [id number] Admin: 12/31/20 08:59 Dose: 40 mg Documented by: [id number] Admin: 12/30/20 08:50 Dose: 40 mg Documented by: [id number] Pravastatin Sodium (Pravastatin Sod 20 Mg Tab) 20 mg PO [facility] Stop: 01/29/21 08:59 Last Admin: 01/02/21 08:14 Dose: 20 mg Documented by: [id number] Admin: 01/01/21 08:29 Dose: 20 mg Documented by: [id number] Admin: 12/31/20 08:59 Dose: 20 mg Documented by: [id number] Admin: 12/30/20 08:51 Dose: 20 mg Documented by: [id number] Rifaximin (Rifaximin 550 Mg Tablet) 550 mg PO BID [facility] Stop: 01/28/21 22:59 Last Admin: 01/02/21 08:17 Dose: 550 mg Documented by: [id number] Admin: 01/01/21 20:21 Dose: 550 mg Documented by: [id number] Admin: 01/01/21 08:28 Dose: 550 mg Documented by: [id number] Admin: 12/31/20 20:13 Dose: 550 mg Documented by: [id number] Admin: 12/31/20 09:00 Dose: 550 mg Documented by: [id number] Admin: 12/30/20 20:20 Dose: 550 mg Documented by: [id number] Admin: 12/30/20 08:51 Dose: 550 mg Documented by: [id number] Admin: 12/30/20 00:04 Dose: 550 mg Documented by: [id number] Ropinirole HCl (Ropinirole Hcl 0.25 Mg Tablet) 0.25 mg PO BID SHEBA Stop: 01/28/21 22:59 Last Admin: 01/01/21 20:22 Dose: 0.25 mg Documented by: [id number] Admin: 01/01/21 08:29 Dose: 0.25 mg Documented by: [id number] Admin: 12/31/20 20:13 Dose: 0.25 mg Documented by: [id number] Admin: 12/31/20 09:00 Dose: 0.25 mg Documented by: [id number] Admin: 12/30/20 20:22 Dose: 0.25 mg Documented by: [id number] Admin: 12/30/20 08:51 Dose: 0.25 mg Documented by: [id number] Admin: 12/30/20 00:07 Dose: 0.25 mg Documented by: [id number] Topiramate (Topiramate 100 Mg Tab) 100 mg PO BID SHE[facility] Stop: 01/28/21 22:59 Last Admin: 01/02/21 08:17 Dose: 100 mg Documented by: [id number] Admin: 01/01/21 20:22 Dose: 100 mg Documented by: [id number] Admin: 01/01/21 08:28 Dose: 100 mg Documented by: [id number] Admin: 12/31/20 20:13 Dose: 100 mg Documented by: [id number] Admin: 12/31/20 09:00 Dose: 100 mg Documented by: [id number] Admin: 12/30/20 20:20 Dose: 100 mg Documented by: [id number] Admin: 12/30/20 08:52 Dose: 100 mg Documented by: [id number] Admin: 12/30/20 00:03 Dose: 100 mg Documented by: [id number] Vitamin B Complex (Vitamin B Complex Tab) 1 tab PO QDL SHEBA Stop: 01/29/21 11:29 Last Admin: 01/02/21 13:05 Dose: 1 tab Documented by: [id number] Admin: 01/01/21 12:44 Dose: 1 tab Documented by: [id number] Admin: 12/31/20 11:52 Dose: 1 tab Documented by: [id number] Admin: 12/30/20 12:20 Dose: 1 tab Documented by: [id number] Vitamin D (Cholecalciferol 1,000 Units 25 Mcg Tab) 5,000 units PO DAILY SHEBA Stop: 01/29/21 08:59 Last Admin: 01/02/21 08:15 Dose: 5,000 units Documented by: [id number] Admin: 01/01/21 08:34 Dose: 5,000 units Documented by: [id number] Admin: 12/31/20 08:59 Dose: 5,000 units Documented by: [id number] Admin: 12/30/20 08:50 Dose: 5,000 units Documented by: [id number] Vitamin E (Tocopheryl, Dl-Alpha 400 Units 180 Mg Cap) 400 units PO Q2D SHEBA Stop: 01/29/21 08:59 Last Admin: 01/01/21 08:29 Dose: 400 units Documented by: [id number] Admin: 12/30/20 08:51 Dose: 400 units Documented by: [id number] Zinc Sulfate (Zinc Sulfate 220 Mg Capsule) 220 mg PO QDL [facility] Stop: 01/29/21 11:29 Last Admin: 01/02/21 13:05 Dose: 220 mg Documented by: [id number] Admin: 01/01/21 12:44 Dose: 220 mg Documented by: [id number] Admin: 12/31/20 11:52 Dose: 220 mg Documented by: [id number] Admin: 12/30/20 12:21 Dose: 220 mg Documented by: [id number] Coding Level of Care Code 30883 Inpt Consult Level 2 Diagnoses Borderline personality disorder F60.3 Time Spent (min) 30
--- NOTE | 2021-01-02 17:02 | Discharge Summary ---
Date of Service date of admission - December 29, 2020 date of discharge - January 02, 2021 Admission HPI Per Admitting Provider Abbi Munson is a medically complex 55 year old female who presents to the ER after a possible syncopal event at home with altered mental state. This has occurred multiple times in the past and she has been treated for UTIs however usually just resumption of her usual medical regimen and giving lactulose helps her symptoms. Her is at bedside and reports she seems to have lost more hand control in the last few weeks. Yesterday was generally a good day however by the end of the day she was "fading". Today she slumped in her chair and he was unable to wake her up even with sternal rubs. He talked to a nurse in her neurologist office and recommended coming to the ER. He did not wish to call EMS so brought her in himself. He managed to move her into her wheelchair at which point she started coming to. Currently in the ER she is the mostly back to her normal self. He reports compliance with all her medications although she is not eating much. She had a significant BM yesterday with lactulose. Principal Diagnosis 1. klebsiella UTI 2. metabolic encephalopathy 2nd to acute/chronic hyperammonemia/hepatic encephalopathy Discharge Exam Gen: frail in appearance but awake/alert; tardive dyskinetic movements noted of head, etc Eyes: no icterus Mouth: thrush plaques on buccal mucosa Neck: no JVD Heart - 1/6 GIOVANNI, RRR, s1 s2 Lungs - CTA b/l Abd - soft NT ND BS+ Neuro - muscle wasting of hands, no asterixis Ext - no edema, pulses 2+ b/l Psych - a/o x 2 (day of week and date not known) Discharge Data Allergies Allergy/AdvReac Type Severity Reaction Status Date / Time metronidazole Allergy Severe SEIZURE Verified 01/04/21 15:38 tramadol Allergy Severe SEIZURES Verified 01/04/21 15:38 amoxicillin Allergy Intermediate SEE COMMENT Verified 01/04/21 15:38 baclofen Allergy Intermediate RASH Verified 01/04/21 15:38 butalbital Allergy Intermediate HIVES Verified 01/04/21 15:38 ceftriaxone [From Rocephin] Allergy Intermediate Hives Verified 01/04/21 15:38 dicyclomine Allergy Intermediate HIVES Verified 01/04/21 15:38 pollen extracts Allergy Intermediate Hives Verified 01/04/21 15:38 Sulfa (Sulfonamide Allergy Intermediate CAUSES Verified 01/04/21 15:38 Antibiotics) BLACK STOOLS Tetracyclines Allergy Intermediate DOXYCYCLINE Verified 01/04/21 15:38 -HIVES adhesive Allergy Mild RASH, Verified 01/04/21 15:38 DUODERM=RED,ITCHY celecoxib Allergy Mild HIVES Verified 01/04/21 15:38 sulindac Allergy Mild ALLERGY Verified 01/04/21 15:38 LISTED "CLONDORAL"--HIVES Cephalosporins AdvReac Severe TURNS Verified 01/04/21 15:38 STOOL VERY DARK levofloxacin [From Levaquin] AdvReac Severe Vomiting Verified 01/04/21 15:38 metoclopramide AdvReac Severe SEIZURES Verified 01/04/21 15:38 paroxetine [From Paxil] AdvReac Severe Vomiting Verified 01/04/21 15:38 dextromethorphan AdvReac Mild Vomiting Verified 01/04/21 15:38 Consultations Psychiatry PT, OT Hospital Course (1) Hepatic encephalopathy: ACUTE on CHRONIC. Biochemically and clinically improved with use of rifaximin & lactulose. UTI may have precipitated her decompensation. Also, she has a history of lactulose noncompliance. Mental status returned to her baseline as confirmed w/ . Cont rifaximin BID. Cont lactulose daily - but adjust at home to keep BMs at least 2-3/day. Discharge ammonia level 56. Peak ammonia level - 165. (2) Metabolic encephalopathy: 2nd to #1 and #3 - improving mental status. (3) UTI (urinary tract infection): 2nd klebsiella. Initially was on IV cefepime then changed to IV cipro. Allergy list with h/o levofloxacin causing vomiting but she did not have any GI intolerance with cipro. At discharge the IV cipro was changed to oral and she will complete 3 more days of such at discharge. Between IV & PO therapy a total of 7 days will be used. (4) Pancytopenia: 2nd cirrhosis b12 level within last year wnl TSH wnl folate level this admission was wnl (5) Cirrhosis: 2nd STEVE compensated from a volume standpoint during the admission hepatic encephalopathy was treated in the customary fashion while here (6) ACTH deficiency: cont hydrocortisone at home dosing follows with Dr Ben Craig [facility] endocrinology (7) Secondary adrenal insufficiency: (8) Controlled type 2 diabetes mellitus, with long-term current use of insulin: BSGs wnl while here cont basal-bolus regimen at home most recent HbA1C was 5.6%; this may not be entirely accurate due to chronic anemia (Hb 10) from her cirrhosis (9) Chronic liver disease and cirrhosis: compensated during the admission (10) Hypothyroidism: most recent TSH wnl cont synthroid as is (11) Seizure disorder: cont home meds follows with Dr Gonzalez - [facility] Neurology (12) Suicidal ideation: About 24 hours prior to discharge the patient voiced thoughts of dying. She was placed on 1:1 observation and psychiatry consult was requested. She has had h/o multiple psych admissions for MDD w/ psychosis in the past. The psychiatrist felt that the statements she made were thoughts of dying rather than actual suicidal ideation/intent. It was not felt that she needed admission to the Behavioral Health Unit. The patient had followed with a counselor in the past and it was recommended t hat she relink with one shortly after discharge. No medication changes were made. She was discharged into the care of her at home who provides 24/7 care. (13) Candidiasis of mouth and esophagus: nystatin solution qid x 7 days post-discharge (14) Parkinsonism: The patient has parkinsonism features likely as a result of her long- standing use of antipsychotic medication for her mental health. She does have symptoms of RLS as well. The pt's felt that her ropinirole was contributing to lethargy at home. Apparently her dose was recently increased to BID dosing. I spoke with the patient's primary neurologist, Dr Jorden Gonzalez, who felt it was reasonable to revert back to once daily dosing at bedtime. Of note - ferritin level was about 125 (checked due to RLS). Total Time Total Time Spent Total Time Spent (In Minutes): 45 Discharge Plan Discharge Items Patient Disposition: Home - Home Health Services Reason For Visit: UNRESPONSIVE/LETHARGIC Discharge Diagnosis: 1. hepatic encephalopathy (high ammonia level) - improved; discharge ammonia level 55 2. lethargy due to #1 - resolved 3. urinary tract infection 4. depression 5. insomnia 6. cirrhosis of the liver 7. thrush (yeast infection of mouth) Activity: Resume your previous activity Non-emergency contact: Primary Care Provider, Maxillofacial Pathology and Therapist Call non-emergency contact if: you have any medication questions, your symptoms worsen and you have a fever Follow-up/Referrals: Jade Currie PA-C [Primary Care Provider] - Diet: Carb Consistent or DM2 and Low Sodium (2gm) Fluids: 1800ml (7 cups) Geoff Attending Provider Instructions: Mrs Munson, Georgi were treated for the problems listed above in "discharge diagnoses." When you arrived your ammonia level was elevated to 165. This was the cause of your lethargy/sleepiness. Often times a urinary tract infection is enough stress on the body to cause the ammonia to rise. Your ammonia level is nicely improved into the 50s. The psychiatry team saw you in consult for your depression and poor sleep. Please see their recommendations below. You can speak with your family doctor or outpatient psychiatrist about these recommendations. Unfortunately any medication we add for sleep may cause excessive drowsiness. Your UTI improved with IV antibiotics while here. You are tolerating the cipro well. Lastly, Dr Gonzalez is ok with reducing your ropinirole. Recommendations - 1. cipro antibiotic 500mg twice daily for 3 days, first dose TONIGHT. 2. nystatin solution - 5cc four times daily for 1 week for thrush (yeast in mouth) -- swish and spit. 3. continue your melatonin for sleep. 4. I would recommend that you continue your lactulose every day to keep the ammonia levels in check. We have tried to make the lactulose as needed in the past but your ammonia levels consistently rise if you are off of it. Thus, please resume your lactulose and take daily. Shoot for 2-3 bowel movements EVERY DAY. 5. REDUCE your ropinirole to once daily at bedtime. 6. please strongly consider seeing a counselor again for your depression (and/or see a psychiatrist). 7. lastly, please increase your magnesium supplement to twice daily (morning and night). Follow-up - see separate section Return to [facility] if - * you have fever over 100 degrees * you have worsening sleepiness, drowsiness, lethargy * you have shortness of breath or chest pain * you have thoughts of hurting yourself or any one else * any other concerns Please continue to feel better! -Dr Medina Tellez Cardiology Rn Provider Instructions: Psychiatry: -if safe with her other medications could consider addition mirtazapine 15 mg at bedtime by outpatient provider to help with sleep which she identifies as difficult at times Pending Studies at Discharge: No Stand-Alone Forms: My [facility], Smoking Cessation Medications and DC Order Prescriptions: New melatonin 5 mg tablet 10 mg PO HS Qty: 1 RF: 0 Continued ipratropium-albuterol 0.5 mg-3 mg(2.5 mg base)/3 mL solution for nebulization 3 ml INH QID PRN (Reason: wheezing) Qty: 90 RF: 0 Nurtec ODT 75 mg tablet,disintegrating 75 mg PO DAILY PRN (Reason: migraine headache) 30 Days Qty: 8 RF: 3 topiramate 100 mg tablet 100 mg PO BID Qty: 60 RF: 5 albuterol sulfate 90 mcg/actuation HFA aerosol inhaler 2 puff inhalation Q4H PRN (Reason: shortness of breath) Qty: 1 RF: 3 Xifaxan 550 mg tablet 550 mg PO BID Qty: 60 RF: 5 insulin aspart U-100 [Novolog Flexpen U-100 Insulin] 100 unit/mL (3 mL) insulin pen 15 - 25 unit SQ TID MDD 60 units Qty: 30 RF: 5 benztropine 1 mg tablet 1 mg PO TID 30 Days Qty: 90 RF: 1 levothyroxine [Euthyrox] 50 mcg tablet 50 mcg PO QAM Qty: 30 RF: 2 omeprazole 40 mg capsule,delayed release(DR/EC) 40 mg PO QAM Qty: 90 RF: 1 calcium carbonate [Calcium 500] 500 mg calcium (1,250 mg) tablet 500 mg PO DAILY RF: 0 levetiracetam 750 mg tablet 1,500 mg PO BID 30 Days Qty: 120 RF: 5 cholecalciferol (vitamin D3) [Vitamin D3] 25 mcg (1,000 unit) capsule 5,000 unit PO DAILY RF: 0 budesonide-formoterol [Symbicort] 160-4.5 mcg/actuation HFA aerosol inhaler 2 puff inhalation BID PRN (Reason: Shortness Of Breath) RF: 0 Tresiba FlexTouch U-100 100 unit/mL (3 mL) insulin pen 30 unit subcut QAM RF: 0 promethazine 25 mg tablet 25 mg PO Q8H PRN (Reason: nausea and vomiting) Qty: 10 RF: 0 famotidine 20 mg tablet 20 mg PO HS RF: 0 ascorbate calcium (vitamin C) 500 mg tablet 500 mg PO DAILY RF: 0 vitamin E (dl, acetate) 180 mg (400 unit) capsule 180 mg PO Q OTHER DAY RF: 0 epinephrine [EpiPen 2-Garret] 0.3 mg/0.3 mL auto-injector 0.3 mg IM Q10M PRN (Reason: Anaphylaxis) RF: 0 lecithin 1,200 mg capsule 1,200 mg PO QDL RF: 0 cranberry 400 mg capsule 400 mg PO BID RF: 0 multivitamin [Multiple Vitamins] Tablet 1 tab PO QDL RF: 0 zinc 50 mg Tablet 50 mg PO QDL RF: 0 acetaminophen [Acetaminophen Extra Strength] 500 mg Tablet 1,000 mg PO HS RF: 0 vitamin A 8,000 unit Capsule 8,000 unit PO QDL RF: 0 vitamin B complex Tablet 1 tab PO QDL RF: 0 Probiotic 3 billion cell Capsule 1 mmu cells PO QDL RF: 0 Refresh Optive Advanced 0.5-1-0.5 % drops 2 drops OP TID RF: 0 fexofenadine 60 mg Tablet 60 mg PO QAM RF: 0 hydrocortisone 10 mg tablet See Rx Instructions .ROUTE .COMPLEX RF: 0 oxcarbazepine 300 mg tablet See Rx Instructions .ROUTE .COMPLEX RF: 0 pravastatin 20 mg tablet 20 mg PO QAM RF: 0 teriparatide [Forteo] 20 mcg/dose (620mcg/2.48mL) pen injector 20 mcg subcut PM RF: 0 escitalopram oxalate 20 mg tablet 20 mg PO DAILY RF: 0 Changed magnesium oxide 400 mg (241.3 mg magnesium) tablet 400 mg PO BID Qty: 0 RF: 0 ropinirole 0.25 mg tablet 0.25 mg PO HS 30 Days Qty: 60 RF: 0 lactulose 20 gram/30 mL solution 30 g PO QAM Qty: 0 RF: 0 Discharge Orders: Discharge Order (Routine); Ordered 01/02/21 Ordered By: Sammy Haney Admission Data Admit Date/Time: 12/29/20 18:03 Attending Provider: Sammy Haney Admit Provider: Sammy Pérez Primary Care Provider: Jade Currie Other Providers: Sammy Pérez ; Pepper Boyer ; Jenn Guardado ; Rosa Enriquez ; Davis Dudley Other Interventions: Discharge Summary Assessment (RN) Last Done: 01/02/21 17:02 Coding Level of Care Code D/C DAY MANAGEMENT >30 MINS Diagnoses Hepatic encephalopathy K72.90 Metabolic encephalopathy G93.41 UTI (urinary tract infection) N30.00 Hematuria presence: without hematuria Urinary tract infection type: acute cystitis Pancytopenia D61.818 Cirrhosis K74.60 ACTH deficiency E23.6 Secondary adrenal insufficiency E27.49 Controlled type 2 diabetes mellitus, with long-term current use of insulin E11.69; Z79.4 Diabetes mellitus complication status: with other specified complication Chronic liver disease and cirrhosis K74.60; K76.9 Hypothyroidism E03.9 Hypothyroidism type: unspecified Seizure disorder G40.909 Suicidal ideation R45.851 Candidiasis of mouth and esophagus B37.81; B37.0 Parkinsonism G20
[2021-01-02] MEDS ORDERED: CIPROFLOXACIN 500 MG TAB PO SCH (21:00)
== END 2021-01-02 17:44 | disposition home or self-care (01) | DRG 441 ==
LOC: ED 12:08 → SUATTDRO 18:03 → EDINP 18:03 → 2N 12-30 02:29

== ENCOUNTER 2021-01-19 13:34 | Inpatient (IN) ==
[2021-01-19] MEDS ORDERED: ONDANSETRON INJ 2 MG/ML 2 ML VIAL IV STA (14:01)
--- NOTE | 2021-01-19 14:10 | Emergency Department Note ---
Impression & Plan Acute hepatic encephalopathy, Acute dehydration, Acute alteration in mental status ED Provider Note NAME: CHRISTO SAN AGE: 55 SEX: F : 1965 ARRIVES VIA: Ambulance INFORMANT: Patient, ED PROVIDER(S): Hemant Willard DO CHIEF COMPLAINT: Altered mental status and weakness HPI: The patient is a 55-year-old female who is well-known to our emergency department who presented to emergency department with her for an evaluation of altered mental status. The patient was discharged in our facility earlier in the week. Her states that since that time she has been at home but not doing much. She has had generalized weakness as well as difficulty ambulating. She has had no fever but has had nausea and vomiting. She has had no abdominal pain. She denies having any chest pain or difficulty breathing. S he has noticed some weakness in both legs. She does have a history of hepatic encephalopathy as well as adrenal insufficiency. She has been taking all of her usual medications the way she is supposed to. She is not been seen by her doctor today. She presented to the emergency department by ambulance because she was unable to get dressed today. ROS: See above HPI for pertinent positives & negatives. A total of 10 systems reviewed and were otherwise negative. PAST MEDICAL HISTORY: See Below PAST SURGICAL HISTORY: See Below FAMILY HISTORY: See Below SOCIAL HISTORY: See Below HOME MEDICATIONS: See Below ALLERGIES: See Below VITALS: See Below PHYSICAL EXAMINATION: GENERAL: The patient was awake and looking around the room. She answers questions appropriately. EYES: The conjunctivae are clear. The pupils are round and reactive. EARS, NOSE, MOUTH AND THROAT: The nose is without any evidence of any deformity. NECK: The neck is nontender and supple. RESPIRATORY: Normal respiratory effort is noted there is no evidence of wheezing rhonchi or rales CARDIOVASCULAR: Regular rate and rhythm noted there no murmurs rubs or gallops normal S1 normal S2. GASTROINTESTINAL: The abdomen is soft. Abdomen is nontender. MUSCULOSKELETAL/EXTREMITIES: There is no evidence of gross deformity full range of motion is noted in the hips and shoulders. SKIN: There is no obvious evidence of any rash. There are no petechiae, pallor or cyanosis noted. NEUROLOGIC: Patient is awake alert and oriented x3 strength is symmetric patellar reflexes are 2+ bilaterally MEDICAL DECISION MAKING: The patient is a 55-year-old female who presented to the emergency department for an evaluation of altered mental status. The patient was recently admitted to our facility with similar complaints. Reportedly she has been taking all her medications as prescribed but her ammonia level was very high and she had findings of dehydration on laboratory studies. Otherwise her labs appear to be close to baseline including pancytopenia. The patient was treated with IV fluids and lactulose in the emergency department. She was reevaluated multiple times. Given her findings I did discuss this case with the on-call [facility] hospitalist. They have agreed to evaluate the patient in the emergency department for further management and disposition. Triage Nursing notes reviewed. Prior medical records reviewed Vital Signs: reviewed and remarkable for no significant abnormalities Differential diagnosis: Infection, dehydration, metabolic abnormality, hypo/hyperglycemia, electrolyte disturbance, anemia, hypoxia, cardiac sources, intracerebral event, toxicologic, neurologic, as well as other pathologies. ER treatment provided: See below Diagnostics interpreted by me: ECG: EKG was obtained in the emergency department. My interpretation is normal sinus rhythm at 72 bpm. There was no ectopy. There was no acute ST segment abnormalities noted. This was compared to a tracing from December 292020. No significant changes were noted. Cardiac Monitoring: An order was placed for continuous cardiac monitoring. The monitor shows a rate of 62 bpm with sinus rhythm. Laboratory studies: As stated above and show below. Imaging studies: See below Consultation(s): I discussed this case with Dr. Suarez who is on-call for the [facility] hospitalist group. He will evaluate the patient in the emergency department. Past Med/Surg History Medical History Acute UTI Depression Frequent falls See care alert special indicator. H/O osteoporotic pathological fracture Migraine Myoclonic seizure "FREQUENT MYOCLONIC SEIZURES" FOLLOWS WITH DR. YANG Nonalcoholic fatty liver disease Pancytopenia Chronic. Follows with cancer center. Platelets have been > 100 since 10/2019, WNL on 05/23 labs. H/H stable in 8-10 range. Parkinsonism Sleepiness Spleen enlargement Surgical History Femur fracture, right SPIRAL FRACTURE REPAIRED (HARDWARE REPAIRED) History of ankle surgery RT/LEFT History of appendectomy History of cholecystectomy History of colonoscopy History of esophagogastroduodenoscopy (EGD) History of kyphoplasty History of open reduction and internal fixation (ORIF) procedure RT HIP History of surgery (~06/02/20) screw/plate removal from left humerus History of surgery on arm LEFT (HARDWARE INTACT) History of tooth extraction History of vascular access device right A port Hx of carpal tunnel repair RT/LEFT Hx of cataract extraction RT/LEFT S/P laminectomy lumbar spine S/P nasal surgery nasal bone fracture repair S/P TIFFANIE-BSO (1997) Family History Other Adopted No pertinent family history Social History Smoking Status: Never smoker Tobacco Type: Cigarettes Second Hand Exposure: No; Hx Alcohol Use: No Hx Substance Use: No Preferred Language: Pashto Communication Ability: Effective Visual Impairment: No 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 Current Living Situation: Spouse Current Living Situation Comment: Lives with Benny current occupational status: unemployed and disabled How many Children do You have: 0 Feels Safe at Home: Yes Seatbelt Use: always Assistive Devices: Walker Allergies Allergies Allergy/AdvReac Type Severity Reaction Status Date / Time metronidazole Allergy Severe SEIZURE Verified 01/19/21 16:03 tramadol Allergy Severe SEIZURES Verified 01/19/21 16:03 amoxicillin Allergy Intermediate SEE COMMENT Verified 01/19/21 16:03 baclofen Allergy Intermediate RASH Verified 01/19/21 16:03 butalbital Allergy Intermediate HIVES Verified 01/19/21 16:03 ceftriaxone [From Rocephin] Allergy Intermediate Hives Verified 01/19/21 16:03 dicyclomine Allergy Intermediate HIVES Verified 01/19/21 16:03 pollen extracts Allergy Intermediate Hives Verified 01/19/21 16:03 Sulfa (Sulfonamide Allergy Intermediate CAUSES Verified 01/19/21 16:03 Antibiotics) BLACK STOOLS Tetracyclines Allergy Intermediate DOXYCYCLINE Verified 01/19/21 16:03 -HIVES adhesive Allergy Mild RASH, Verified 01/19/21 16:03 DUODERM=RED,ITCHY celecoxib Allergy Mild HIVES Verified 01/19/21 16:03 sulindac Allergy Mild ALLERGY Verified 01/19/21 16:03 LISTED "CLONDORAL"--HIVES Cephalosporins AdvReac Severe TURNS Verified 01/19/21 16:03 STOOL VERY DARK levofloxacin [From Levaquin] AdvReac Severe Vomiting Verified 01/19/21 16:03 metoclopramide AdvReac Severe SEIZURES Verified 01/19/21 16:03 paroxetine [From Paxil] AdvReac Severe Vomiting Verified 01/19/21 16:03 dextromethorphan AdvReac Mild Vomiting Verified 01/19/21 16:03 Home Meds Home Medications Medication Instructions Recorded Confirmed multivitamin (Multiple Vitamins) 1 tab PO QDL 12/26/17 01/19/21 lactobacillus combination no.4 3 1 mmu cells PO QDL 09/20/18 01/19/21 billion cell capsule (Probiotic) vitamin A 2,400 mcg capsule 8,000 unit PO QDL 09/20/18 01/19/21 vitamin B complex 1 tab PO QDL 09/20/18 01/19/21 zinc 50 mg tablet 50 mg PO QDL 02/09/19 01/19/21 epinephrine 0.3 mg/0.3 mL 0.3 mg IM Q10M PRN 04/02/19 01/19/21 injection, auto-injector (EpiPen 2-Garret) lecithin 1,200 mg capsule 1,200 mg PO QDL 04/29/19 01/19/21 twolokhedopjutjcdjigki-uacdqnip-zpzbglkk 2 drops OP TID 10/31/19 01/19/21 80 0.5 %-1 %-0.5 % eye drops (Refresh Optive Advanced) acetaminophen 500 mg tablet 1,000 mg PO HS 01/09/20 01/19/21 (Acetaminophen Extra Strength) calcium carbonate 500 mg calcium 500 mg PO DAILY 01/27/20 01/19/21 (1,250 mg) tablet (Calcium 500) fexofenadine 60 mg tablet 60 mg PO QAM 04/12/20 01/19/21 cranberry 400 mg capsule 400 mg PO BID 06/08/20 01/19/21 budesonide-formoterol HFA 160 2 puff INHALATION BID PRN inhaler 10/03/20 01/19/21 mcg-4.5 mcg/actuation aerosol inhaler (Symbicort) insulin degludec 100 unit/mL (3 30 unit SUBCUT QAM ml 10/03/20 01/19/21 mL) subcutaneous pen (Tresiba FlexTouch U-100 insulin) ascorbate calcium (vitamin C) 500 500 mg PO DAILY 11/16/20 01/19/21 mg tablet famotidine 20 mg tablet 20 mg PO HS tab 11/16/20 01/19/21 vitamin E (dl, acetate) 180 mg 180 mg PO Q OTHER DAY cap 11/16/20 01/19/21 (400 unit) capsule cholecalciferol (vitamin D3) 25 5,000 unit PO DAILY cap 11/30/20 01/19/21 mcg (1,000 unit) capsule (Vitamin D3) hydrocortisone 10 mg tablet See Rx Instructions .ROUTE 11/30/20 01/19/21 .COMPLEX tab oxcarbazepine 300 mg tablet See Rx Instructions .ROUTE 11/30/20 01/19/21 .COMPLEX tab pravastatin 20 mg tablet 20 mg PO QAM 12/05/20 01/19/21 teriparatide 20 mcg/dose (620 20 mcg SUBCUT PM 12/05/20 01/19/21 mcg/2.48 mL) subcutaneous pen injector (Forteo) escitalopram oxalate 20 mg tablet 20 mg PO DAILY 12/29/20 01/19/21 Previous Rx's Medication Instructions Recorded ipratropium 0.5 mg-albuterol 3 mg 3 ml INH QID PRN #90 ml 07/30/19 (2.5 mg base)/3 mL nebulization soln rimegepant 75 mg disintegrating 75 mg PO DAILY PRN 30 Days #8 tab 03/21/20 tablet (Nurtec ODT) topiramate 100 mg tablet 100 mg PO BID #60 tab 05/17/20 albuterol sulfate 90 mcg/actuation 2 puff INHALATION Q4H PRN #1 05/31/20 aerosol inhaler inhaler rifaximin 550 mg tablet (Xifaxan) 550 mg PO BID #60 tab 07/24/20 insulin aspart U-100 100 unit/mL 15 - 25 unit SQ TID #30 ml MDD 60 09/28/20 (3 mL) subcutaneous pen (Novolog units Flexpen U-100 Insulin aspart) benztropine 1 mg tablet 1 mg PO TID 30 Days #90 tab 10/07/20 promethazine 25 mg tablet 25 mg PO Q8H PRN #10 tab 10/11/20 levetiracetam 750 mg tablet 1,500 mg PO BID 30 Days #120 tab 10/30/20 levothyroxine 50 mcg tablet 50 mcg PO QAM #30 tab 11/10/20 (Euthyrox) omeprazole 40 mg capsule,delayed 40 mg PO QAM #90 cap 11/15/20 release lactulose 20 gram/30 mL oral 30 g PO QAM #0 ml 01/02/21 solution magnesium oxide 400 mg (241.3 mg 400 mg PO BID #0 tab 01/02/21 magnesium) tablet melatonin 5 mg tablet 10 mg PO HS #1 tab 01/02/21 ropinirole 0.25 mg tablet 0.25 mg PO BID 90 Days #180 tab 01/10/21 Results & Data (ED) Vital Signs Vital Signs - 24 hr 01/19/21 13:48 01/19/21 13:55 01/19/21 14:33 Temperature 37.3 C Temperature Source Oral Pulse Rate 92 H 66 Pulse Rate [Apical] Pulse Rate from SpO2 Sensor 66 Respiratory Rate 18 23 Respiratory Effort / Characteristics Respiratory Depth Respiratory Pattern Blood Pressure 132/53 L Blood Pressure [Left Arm] Blood Pressure Mean 79 Blood Pressure Mean [Left Arm] Pulse Oximetry 100 100 100 Oxygen Delivery Method Room Air Room Air Sepsis Recent Fever Within 48 Hours No Sepsis New/Unexplained Change in Mental Status N/A Sepsis Action Taken by Nursing No Action Required 01/19/21 15:05 01/19/21 15:15 01/19/21 15:30 Temperature Temperature Source Pulse Rate 64 65 64 Pulse Rate [Apical] 65 Pulse Rate from SpO2 Sensor 65 Respiratory Rate 24 20 20 Respiratory Effort / Characteristics Non-Labored Spontaneous Respiratory Depth Normal Respiratory Pattern Regular Blood Pressure 125/57 L 130/53 L Blood Pressure [Left Arm] 125/57 L Blood Pressure Mean 79 78 Blood Pressure Mean [Left Arm] 79 Pulse Oximetry 100 100 100 Oxygen Delivery Method Room Air Sepsis Recent Fever Within 48 Hours Sepsis New/Unexplained Change in Mental Status Sepsis Action Taken by Nursing 01/19/21 16:00 01/19/21 16:30 01/19/21 17:00 Temperature Temperature Source Pulse Rate 65 64 67 Pulse Rate [Apical] Pulse Rate from SpO2 Sensor 64 64 66 Respiratory Rate 21 18 20 Respiratory Effort / Characteristics Respiratory Depth Respiratory Pattern Blood Pressure 120/50 L Blood Pressure [Left Arm] Blood Pressure Mean 73 Blood Pressure Mean [Left Arm] Pulse Oximetry 98 100 100 Oxygen Delivery Method Sepsis Recent Fever Within 48 Hours Sepsis New/Unexplained Change in Mental Status Sepsis Action Taken by Nursing 01/19/21 17:30 Temperature Temperature Source Pulse Rate 67 Pulse Rate [Apical] Pulse Rate from SpO2 Sensor 67 Respiratory Rate 15 Respiratory Effort / Characteristics Respiratory Depth Respiratory Pattern Blood Pressure 120/64 Blood Pressure [Left Arm] Blood Pressure Mean 82 Blood Pressure Mean [Left Arm] Pulse Oximetry 99 Oxygen Delivery Method Sepsis Recent Fever Within 48 Hours Sepsis New/Unexplained Change in Mental Status Sepsis Action Taken by Longterm Medications Current Medication List: was personally reviewed by me Laboratory Data Attestation: I reviewed the patient's lab results. Result diagrams: 01/19/21 14:34 01/19/21 14:34 Lab Results 01/19/21 01/19/21 01/19/21 Range/Units 14:34 14:34 14:34 WBC 4.08 L (4.8-10.8) K/uL RBC 2.96 L (4.2-5.4) M/uL Hgb 11.0 L (12.0-16.0) g/dL Hct 32.0 L (37-47) % MCV 108.1 H (80-100) fL MCH 37.2 H (25-34) pg MCHC 34.4 (32-36) g/dL RDW Std Deviation 55.1 H (36.4-46.3) fL RDW Coeff of Irina 14.0 (11.5-14.5) % Plt Count 85 L (130-400) K/uL MPV 9.8 (7.4-10.4) fL Immature Gran % (Auto) 0.0 % Neut % (Auto) 59.6 % Lymph % (Auto) 27.9 % [place] % (Auto) 10.8 % Eos % (Auto) 1.5 % Baso % (Auto) 0.2 % Neut # (Auto) 2.43 (1.4-6.5) K/uL Lymph # (Auto) 1.14 L (1.2-3.4) K/uL [place] # (Auto) 0.44 (0.11-0.59) K/uL Eos # (Auto) 0.06 (0-0.5) K/uL Baso # (Auto) 0.01 (0-0.2) K/uL Immature Gran # (Auto) 0.00 (0.00-0.02) K/uL Polychromasia 1+ PT 12.9 H (9.0-12.0) Seconds INR 1.3 H (0.9-1.1) APTT 30.6 (21.0-31.0) Seconds PTT Ratio 1.2 Sodium 147 H (136-145) mmol/L Potassium 3.3 L (3.5-5.1) mmol/L Chloride 118 H (98-107) mmol/L Carbon Dioxide 24 (21-32) mmol/L Anion Gap 5.0 (3-11) BUN 21 H (7-18) mg/dl Creatinine 0.59 L (0.6-1.2) mg/dl Est Cr Clr Drug Dosing 110.0 ml/min Est GFR ( Amer) 119.6 ml/min Est GFR (Non-Af Amer) 103.2 ml/min BUN/Creatinine Ratio 35.2 H (10-20) Glucose 183 H (70-99) mg/dl Calcium 8.1 L (8.5-10.1) mg/dl Magnesium 1.7 L (1.8-2.4) mg/dl Total Bilirubin 1.6 H (0.2-1) mg/dl AST 36 (15-37) U/L ALT 44 (12-78) U/L Alkaline Phosphatase 162 H (45-117) U/L Ammonia (11-32) umol/L Total Creatine Kinase 81 (26-192) U/L Troponin I < 0.015 (0-0.045) ng/ml Total Protein 5.6 L (6.4-8.2) gm/dl Albumin 2.5 L (3.4-5.0) gm/dl Globulin 3.1 (2.5-4.0) gm/dl Albumin/Globulin Ratio 0.8 L (0.9-2) TSH 2.530 (0.300-4.500) uIu/ml Random Cortisol mcg/dl COVID-19 Eval Order SARS-CoV-2 (PCR) (Negative) 01/19/21 01/19/21 01/19/21 Range/Units 14:34 14:34 16:43 WBC (4.8-10.8) K/uL RBC (4.2-5.4) M/uL Hgb (12.0-16.0) g/dL Hct (37-47) % MCV (80-100) fL MCH (25-34) pg MCHC (32-36) g/dL RDW Std Deviation (36.4-46.3) fL RDW Coeff of Irina (11.5-14.5) % Plt Count (130-400) K/uL MPV (7.4-10.4) fL Immature Gran % (Auto) % Neut % (Auto) % Lymph % (Auto) % [place] % (Auto) % Eos % (Auto) % Baso % (Auto) % Neut # (Auto) (1.4-6.5) K/uL Lymph # (Auto) (1.2-3.4) K/uL [place] # (Auto) (0.11-0.59) K/uL Eos # (Auto) (0-0.5) K/uL Baso # (Auto) (0-0.2) K/uL Immature Gran # (Auto) (0.00-0.02) K/uL Polychromasia PT (9.0-12.0) Seconds INR (0.9-1.1) APTT (21.0-31.0) Seconds PTT Ratio Sodium (136-145) mmol/L Potassium (3.5-5.1) mmol/L Chloride (98-107) mmol/L Carbon Dioxide (21-32) mmol/L Anion Gap (3-11) BUN (7-18) mg/dl Creatinine (0.6-1.2) mg/dl Est Cr Clr Drug Dosing ml/min Est GFR ( Amer) ml/min Est GFR (Non-Af Amer) ml/min BUN/Creatinine Ratio (10-20) Glucose (70-99) mg/dl Calcium (8.5-10.1) mg/dl Magnesium (1.8-2.4) mg/dl Total Bilirubin (0.2-1) mg/dl AST (15-37) U/L ALT (12-78) U/L Alkaline Phosphatase (45-117) U/L Ammonia 172.9 H (11-32) umol/L Total Creatine Kinase (26-192) U/L Troponin I (0-0.045) ng/ml Total Protein (6.4-8.2) gm/dl Albumin (3.4-5.0) gm/dl Globulin (2.5-4.0) gm/dl Albumin/Globulin Ratio (0.9-2) TSH (0.300-4.500) uIu/ml Random Cortisol 14.42 mcg/dl COVID-19 Eval Order Covid19 at [facility] SARS-CoV-2 (PCR) (Negative) 01/19/21 Range/Units 16:43 WBC (4.8-10.8) K/uL RBC (4.2-5.4) M/uL Hgb (12.0-16.0) g/dL Hct (37-47) % MCV (80-100) fL MCH (25-34) pg MCHC (32-36) g/dL RDW Std Deviation (36.4-46.3) fL RDW Coeff of Irina (11.5-14.5) % Plt Count (130-400) K/uL MPV (7.4-10.4) fL Immature Gran % (Auto) % Neut % (Auto) % Lymph % (Auto) % [place] % (Auto) % Eos % (Auto) % Baso % (Auto) % Neut # (Auto) (1.4-6.5) K/uL Lymph # (Auto) (1.2-3.4) K/uL [place] # (Auto) (0.11-0.59) K/uL Eos # (Auto) (0-0.5) K/uL Baso # (Auto) (0-0.2) K/uL Immature Gran # (Auto) (0.00-0.02) K/uL Polychromasia PT (9.0-12.0) Seconds INR (0.9-1.1) APTT (21.0-31.0) Seconds PTT Ratio Sodium (136-145) mmol/L Potassium (3.5-5.1) mmol/L Chloride (98-107) mmol/L Carbon Dioxide (21-32) mmol/L Anion Gap (3-11) BUN (7-18) mg/dl Creatinine (0.6-1.2) mg/dl Est Cr Clr Drug Dosing ml/min Est GFR ( Amer) ml/min Est GFR (Non-Af Amer) ml/min BUN/Creatinine Ratio (10-20) Glucose (70-99) mg/dl Calcium (8.5-10.1) mg/dl Magnesium (1.8-2.4) mg/dl Total Bilirubin (0.2-1) mg/dl AST (15-37) U/L ALT (12-78) U/L Alkaline Phosphatase (45-117) U/L Ammonia (11-32) umol/L Total Creatine Kinase (26-192) U/L Troponin I (0-0.045) ng/ml Total Protein (6.4-8.2) gm/dl Albumin (3.4-5.0) gm/dl Globulin (2.5-4.0) gm/dl Albumin/Globulin Ratio (0.9-2) TSH (0.300-4.500) uIu/ml Random Cortisol mcg/dl COVID-19 Eval Order SARS-CoV-2 (PCR) NEGATIVE (Negative) Administered Medications Benztropine Mesylate (Benztropine Mesylate 1 Mg Tab) 1 mg PO TID SHEBA Stop: 02/18/21 20:59 Last Admin: 01/19/21 21:28 Dose: 1 mg Documented by: [id number] Famotidine (Famotidine 20 Mg Tab) 20 mg PO HS SHEBA Stop: 02/18/21 20:59 Last Admin: 01/19/21 21:28 Dose: 20 mg Documented by: [id number] Hydrocortisone (Hydrocortisone 10 Mg Tab) 5 mg PO DAILY@1630 SHEBA Stop: 02/18/21 20:59 Last Admin: 01/19/21 21:39 Dose: 5 mg Documented by: [id number] Lactulose (Lactulose Syrup 30 Gm/45 Ml Udp) 30 gm PO QID SHEBA Stop: 02/18/21 20:59 Last Admin: 01/19/21 21:28 Dose: 30 gm Documented by: [id number] Levetiracetam (Levetiracetam 500 Mg Tab) 1,500 mg PO BID SHEBA Stop: 02/18/21 20:59 Last Admin: 01/19/21 21:28 Dose: 1,500 mg Documented by: [id number] Magnesium Oxide (Magnesium Oxide 400 Mg Tab) 400 mg PO BID SHEBA Stop: 02/18/21 20:59 Last Admin: 01/19/21 21:28 Dose: 400 mg Documented by: [id number] Melatonin (Melatonin 3 Mg Tab) 9 mg PO HS SHEBA Stop: 02/18/21 20:59 Last Admin: 01/19/21 21:28 Dose: 9 mg Documented by: [id number] Oxcarbazepine (Oxcarbazepine 150 Mg Tablet) 600 mg PO HS SHEBA Stop: 02/18/21 20:59 Last Admin: 01/19/21 21:28 Dose: 600 mg Documented by: [id number] Pravastatin Sodium (Pravastatin Sod 20 Mg Tab) 20 mg PO HS SHEBA Stop: 02/18/21 20:59 Last Admin: 01/19/21 21:28 Dose: 20 mg Documented by: [id number] Rifaximin (Rifaximin 550 Mg Tablet) 550 mg PO BID SHEBA Stop: 02/18/21 20:59 Last Admin: 01/19/21 21:28 Dose: 550 mg Documented by: [id number] Ropinirole HCl (Ropinirole Hcl 0.25 Mg Tablet) 0.25 mg PO BID SHEBA Stop: 02/18/21 20:59 Last Admin: 01/19/21 21:28 Dose: 0.25 mg Documented by: [id number] Topiramate (Topiramate 100 Mg Tab) 100 mg PO BID SHEBA Stop: 02/18/21 20:59 Last Admin: 01/19/21 21:28 Dose: 100 mg Documented by: [id number] Discontinued Medications Sodium Chloride (Nss 1000ml) 1,000 mls @ 999 mls/hr IV .Q1H1M SHEBA Stop: 01/19/21 15:15 Last Infusion: 01/19/21 16:19 Dose: 0 mls/hr Documented by: [id number] Admin: 01/19/21 15:12 Dose: 999 mls/hr Documented by: [id number] Magnesium Sulfate/Dextrose (Magnesium Sulfate / D5w) 1 gm in 100 mls @ 100 mls/hr IV Q1H SHEBA Stop: 01/19/21 18:09 Last Infusion: 01/19/21 18:45 Dose: 0 mls/hr Documented by: [id number] Admin: 01/19/21 17:58 Dose: 100 mls/hr Documented by: [id number] Infusion: 01/19/21 17:58 Dose: 0 mls/hr Documented by: [id number] Admin: 01/19/21 16:42 Dose: 100 mls/hr Documented by: [id number] Lactulose (Lactulose Syrup 30 Gm/45 Ml Udp) 30 gm PO NOW STA Stop: 01/19/21 16:11 Last Admin: 01/19/21 16:46 Dose: 30 gm Documented by: [id number] Ondansetron HCl (Ondansetron Inj 2 Mg/Ml 2 Ml Vial) 4 mg IV NOW STA Stop: 01/19/21 14:02 Last Admin: 01/19/21 15:13 Dose: 4 mg Documented by: [id number] Imaging Data Radiologist's Impression: Chest X-Ray 01/19/21 14:01 XR chest 1V portable CLINICAL HISTORY: weakness TECHNIQUE: Single frontal radiograph of the chest was obtained. Comparison: Comparison is made to chest 2 views 11/30/2020 FINDINGS: Stable right portacatheter. Cardiomegaly is noted. The lungs are clear. No evidence of pleural effusion or pneumothorax. IMPRESSION: No acute chest disease. ACT 112: Negative or not required by law. Electronically signed by: Serjio Campbell M.D. 01/19/2021 2:[address] 01/19/21 14:01 CT head/brain wo con CLINICAL HISTORY: weakness Technique: Contiguous axial CT images of the head were acquired from the base of the skull to the vertex without intravenous contrast administration. Images were viewed in brain, subdural and bone windows. Automated dose lowering techniques and/or adjustment according to patient size were utilized for this exam. Comparison: Comparison is made to CT head 11/29/2020 Findings: Areas of decreased attenuation are present in the periventricular and subcortical white matter bilaterally consistent with small vessel ischemic disease. Generalized cerebral atrophy with commensurate enlargement of the ventricles, sulci, and cisterns is also present. There is no acute intracranial hemorrhage or evidence of acute territorial infarction. No shift of the midline structures, mass effect, or extra-axial abnormalities are shown. Atherosclerotic calcifications are present in the intracranial segments of the internal carotid arteries. Imaged portions of the paranasal sinuses and mastoid air cells are clear. The orbits appear normal. There are no acute fractures of the calvaria or scalp swelling. Impression: No acute intracranial hemorrhage, evidence of acute territorial infarction, or other acute intracranial disease process. ACT 112: Negative or not required by law. Electronically signed by: Serjio Campbell M.D. 01/19/2021 3:05 PM Discharge Plan Visit Data Chief Complaint: Weakness Stated Complaint: WEAKNESS, TROUBLE AMBULATING ED Provider: Hemant Willard Discharge Problem: Acute hepatic encephalopathy, Acute dehydration, Acute alteration in mental status Patient Disposition: Admitted As Inpatient Discharge Instructions Interventions: ED Discharge Assessment Last Done: 01/19/21 19:42
[2021-01-19] MEDS ORDERED: SODIUM CHLORIDE 0.9% 1000ML 1,000 ML IV SCH (14:15)
[2021-01-19 14:39] LABS: Mean Corpuscular Hemoglobin 37.2 pg (25-34); Mean Corpuscular Hgb Conc 34.4 g/dL (32-36); Mean Corpuscular Volume 108.1 fL (80-100); RDW Standard Deviation 55.1 fL (36.4-46.3); Red Blood Count 2.96 M/uL (4.2-5.4); White Blood Count 4.08 K/uL (4.8-10.8)
[2021-01-19 14:48] LABS: Mean Platelet Volume 9.8 fL (7.4-10.4); Platelet Count 85 K/uL (130-400)
--- NOTE | 2021-01-19 14:48 | XRay Report ---
XR chest 1V portable CLINICAL HISTORY: weakness TECHNIQUE: Single frontal radiograph of the chest was obtained. Comparison: Comparison is made to chest 2 views 11/30/2020 FINDINGS: Stable right portacatheter. Cardiomegaly is noted. The lungs are clear. No evidence of pleural effusi on or pneumothorax. IMPRESSION: No acute chest disease. ACT 112: Negative or not required by law. Electronically signed by: Serjio Campbell M.D. 01/19/2021 2:46 PM
[2021-01-19 14:53] LABS: INR 1.3 (0.9-1.1); Partial Thromboplastin Ratio 1.2; Partial Thromboplastin Time 30.6 Seconds (21.0-31.0); Prothrombin Time 12.9 Seconds (9.0-12.0)
[2021-01-19 14:57] LABS: Basophils # (auto) 0.01 K/uL (0-0.2); Basophils % (auto) 0.2 %; Eosinophils # (auto) 0.06 K/uL (0-0.5); Eosinophils % (auto) 1.5 %; Lymphocytes # (auto) 1.14 K/uL (1.2-3.4); Lymphocytes % (auto) 27.9 %; Monocytes # (auto) 0.44 K/uL (0.11-0.59); Monocytes % (auto) 10.8 %; Neutrophils # (auto) 2.43 K/uL (1.4-6.5); Neutrophils % (auto) 59.6 %; Polychromasia 1+
[2021-01-19 14:58] LABS: Alanine Aminotransferase 44 U/L (12-78); Albumin Level 2.5 gm/dl (3.4-5.0); Aspartate Aminotransferase 36 U/L (15-37); BUN Creatinine Ratio 35.2 (10-20); Blood Urea Nitrogen 21 mg/dl (7-18); Calcium 8.1 mg/dl (8.5-10.1); Carbon Dioxide 24 mmol/L (21-32); Chloride 118 mmol/L (98-107); Est GFR (African American) 119.6 ml/min; Est GFR (Non-African American) 103.2 ml/min; Glucose 183 mg/dl (70-99); Magnesium 1.7 mg/dl (1.8-2.4); Potassium 3.3 mmol/L (3.5-5.1); Sodium 147 mmol/L (136-145)
--- NOTE | 2021-01-19 15:06 | CT Scan Report ---
CT head/brain wo con CLINICAL HISTORY: weakness Technique: Contiguous axial CT images of the head were acquired from the base of the skull to the davin armand without intravenous contrast administration. Images were viewed in brain, subdural and [facility]. Automated dose lowering techniques and/or adjustment according to patient size were utilized for this exam. Comparison: Comparison is made to CT head 11/29/2020 Findings: Areas of decreased attenuation are present in the periventricular and subcortical white matter bilate rally consistent with small vessel ischemic disease. Generalized cerebral atrophy with commensurate e nlargement of the ventricles, sulci, and cisterns is also present. There is no acute intracranial hem orrhage or evidence of acute territorial infarction. No shift of the midline structures, mass effect, or extra-axial abnormalities are shown. Atherosclerotic calcifications are present in the intracran ial segments of the internal carotid arteries. Imaged portions of the paranasal sinuses and mastoid air cells are clear. The orbits appear normal. There are no acute fractures of the calvaria or scalp swelling. Impression: No acute intracranial hemorrhage, evidence of acute territorial infarction, or other acute intracrani al disease process. ACT 112: Negative or not required by law. Electronically signed by: Serjio Campbell M.D. 01/19/2021 3:05 PM
[2021-01-19 15:09] LABS: Albumin Globulin Ratio 0.8 (0.9-2); Alkaline Phosphatase 162 U/L (45-117); Bilirubin,Total 1.6 mg/dl (0.2-1); Creatine Kinase 81 U/L (26-192); Globulin 3.1 gm/dl (2.5-4.0); Total Protein 5.6 gm/dl (6.4-8.2); Troponin I < 0.015 ng/ml (0-0.045)
--- NOTE | 2021-01-19 15:15 | Electrocardiogram Report ---
Test Reason : Blood Pressure : / mmHG Vent. Rate : 072 BPM Atrial Rate : 072 BPM P-R Int : 156 ms QRS Dur : 094 ms QT Int : 436 ms P-R-T Axes : 050 002 034 degrees QTc Int : 477 ms Normal sinus rhythm Normal ECG When compared with ECG of 29-DEC-2020 15:01, No significant change was found Confirmed by Juliano Mccracken ([id number]) on 01/19/2021 3:15:28 PM Referred By: ED Confirmed By:Juliano Mccracken
[2021-01-19] MEDS ORDERED: LACTULOSE SYRUP 30 GM/45 ML UDP PO STA (16:10)
[2021-01-19] MEDS: MAGNESIUM SULFATE / D5W 1 GM/100 ML BAG IV SCH ×2 (16:42→17:58)
--- NOTE | 2021-01-19 17:35 | History & Physical Report ---
Date of Service January 19, 2021 Assessment & Plan (1) Acute hepatic encephalopathy: Plan: Patient is again confused. Patient likely is not compliant with her lactulose as ammonia level is elevated. cont rifaximin BID. increase lactulose QID but will need to adjust to keep BMs 2-3/day. DVT prophylaxis: SCDs (2) Dyslipidemia: Plan: resume home meds (3) Hyperammonemia: Plan: level is elevated. will increase lactulose (4) Seizure: Plan: cont home meds follows with Dr Gonzalez - [facility] Neurology (5) Blanca's thyroiditis: Plan: most recent TSH wnl cont synthroid as is (6) Diabetes mellitus: Plan: cont lantus cont novolog - History of Present Illness Chief Complaint: confusion Primary Care Provider: Jade Currie Abbi Munson is a medically complex 55 year old female who presents to the ER after worsening confusion. As per ED, reports that patient is compliant with her medications. is no longer at bedside at time of history taking. Patient is very confused and cannot contribute to the history. Allergies Allergy/AdvReac Type Severity Reaction Status Date / Time metronidazole Allergy Severe SEIZURE Verified 01/19/21 16:03 tramadol Allergy Severe SEIZURES Verified 01/19/21 16:03 amoxicillin Allergy Intermediate SEE COMMENT Verified 01/19/21 16:03 baclofen Allergy Intermediate RASH Verified 01/19/21 16:03 butalbital Allergy Intermediate HIVES Verified 01/19/21 16:03 ceftriaxone [From Rocephin] Allergy Intermediate Hives Verified 01/19/21 16:03 dicyclomine Allergy Intermediate HIVES Verified 01/19/21 16:03 pollen extracts Allergy Intermediate Hives Verified 01/19/21 16:03 Sulfa (Sulfonamide Allergy Intermediate CAUSES Verified 01/19/21 16:03 Antibiotics) BLACK STOOLS Tetracyclines Allergy Intermediate DOXYCYCLINE Verified 01/19/21 16:03 -HIVES adhesive Allergy Mild RASH, Verified 01/19/21 16:03 DUODERM=RED,ITCHY celecoxib Allergy Mild HIVES Verified 01/19/21 16:03 sulindac Allergy Mild ALLERGY Verified 01/19/21 16:03 LISTED "CLONDORAL"--HIVES Cephalosporins AdvReac Severe TURNS Verified 01/19/21 16:03 STOOL VERY DARK levofloxacin [From Levaquin] AdvReac Severe Vomiting Verified 01/19/21 16:03 metoclopramide AdvReac Severe SEIZURES Verified 01/19/21 16:03 paroxetine [From Paxil] AdvReac Severe Vomiting Verified 01/19/21 16:03 dextromethorphan AdvReac Mild Vomiting Verified 01/19/21 16:03 Home Medications Medication Instructions Recorded Confirmed Type multivitamin (Multiple Vitamins) 1 tab PO QDL 12/26/17 01/19/21 History lactobacillus combination no.4 3 1 mmu cells PO QDL 09/20/18 01/19/21 History billion cell capsule (Probiotic) vitamin A 2,400 mcg capsule 8,000 unit PO QDL 09/20/18 01/19/21 History vitamin B complex 1 tab PO QDL 09/20/18 01/19/21 History zinc 50 mg tablet 50 mg PO QDL 02/09/19 01/19/21 History epinephrine 0.3 mg/0.3 mL 0.3 mg IM Q10M PRN 04/02/19 01/19/21 History injection, auto-injector (EpiPen 2-Garret) lecithin 1,200 mg capsule 1,200 mg PO QDL 04/29/19 01/19/21 History ipratropium 0.5 mg-albuterol 3 mg 3 ml INH QID PRN #90 ml 07/30/19 01/19/21 Rx (2.5 mg base)/3 mL nebulization soln [id number] 2 drops OP TID 10/31/19 01/19/21 History 80 0.5 %-1 %-0.5 % eye drops (Refresh Optive Advanced) acetaminophen 500 mg tablet 1,000 mg PO HS 01/09/20 01/19/21 History (Acetaminophen Extra Strength) calcium carbonate 500 mg calcium 500 mg PO DAILY 01/27/20 01/19/21 History (1,250 mg) tablet (Calcium 500) rimegepant 75 mg disintegrating 75 mg PO DAILY PRN 30 Days #8 tab 03/21/20 01/19/21 Rx tablet (Nurtec ODT) fexofenadine 60 mg tablet 60 mg PO QAM 04/12/20 01/19/21 History topiramate 100 mg tablet 100 mg PO BID #60 tab 05/17/20 01/19/21 Rx albuterol sulfate 90 mcg/actuation 2 puff INHALATION Q4H PRN #1 05/31/20 01/19/21 Rx aerosol inhaler inhaler cranberry 400 mg capsule 400 mg PO BID 06/08/20 01/19/21 History rifaximin 550 mg tablet (Xifaxan) 550 mg PO BID #60 tab 07/24/20 01/19/21 Rx insulin aspart U-100 100 unit/mL 15 - 25 unit SQ TID #30 ml MDD 60 09/28/20 01/19/21 Rx (3 mL) subcutaneous pen (Novolog units Flexpen U-100 Insulin aspart) budesonide-formoterol HFA 160 2 puff INHALATION BID PRN inhaler 10/03/20 01/19/21 History mcg-4.5 mcg/actuation aerosol inhaler (Symbicort) insulin degludec 100 unit/mL (3 30 unit SUBCUT QAM ml 10/03/20 01/19/21 History mL) subcutaneous pen (Tresiba FlexTouch U-100 insulin) benztropine 1 mg tablet 1 mg PO TID 30 Days #90 tab 10/07/20 01/19/21 Rx promethazine 25 mg tablet 25 mg PO Q8H PRN #10 tab 10/11/20 01/19/21 Rx levetiracetam 750 mg tablet 1,500 mg PO BID 30 Days #120 tab 10/30/20 01/19/21 Rx levothyroxine 50 mcg tablet 50 mcg PO QAM #30 tab 11/10/20 01/19/21 Rx (Euthyrox) omeprazole 40 mg capsule,delayed 40 mg PO QAM #90 cap 11/15/20 01/19/21 Rx release ascorbate calcium (vitamin C) 500 500 mg PO DAILY 11/16/20 01/19/21 History mg tablet famotidine 20 mg tablet 20 mg PO HS tab 11/16/20 01/19/21 History vitamin E (dl, acetate) 180 mg 180 mg PO Q OTHER DAY cap 11/16/20 01/19/21 History (400 unit) capsule cholecalciferol (vitamin D3) 25 5,000 unit PO DAILY cap 11/30/20 01/19/21 History mcg (1,000 unit) capsule (Vitamin D3) hydrocortisone 10 mg tablet See Rx Instructions .ROUTE 11/30/20 01/19/21 History .COMPLEX tab oxcarbazepine 300 mg tablet See Rx Instructions .ROUTE 11/30/20 01/19/21 History .COMPLEX tab pravastatin 20 mg tablet 20 mg PO QAM 12/05/20 01/19/21 History teriparatide 20 mcg/dose (620 20 mcg SUBCUT PM 12/05/20 01/19/21 History mcg/2.48 mL) subcutaneous pen injector (Forteo) escitalopram oxalate 20 mg tablet 20 mg PO DAILY 12/29/20 01/19/21 History lactulose 20 gram/30 mL oral 30 g PO QAM #0 ml 01/02/21 01/19/21 Rx solution magnesium oxide 400 mg (241.3 mg 400 mg PO BID #0 tab 01/02/21 01/19/21 Rx magnesium) tablet melatonin 5 mg tablet 10 mg PO HS #1 tab 01/02/21 01/19/21 Rx ropinirole 0.25 mg tablet 0.25 mg PO BID 90 Days #180 tab 01/10/21 01/19/21 Rx Past Med/Surg History Medical History Acute UTI Depression Frequent falls See care alert special indicator. H/O osteoporotic pathological fracture Migraine Myoclonic seizure "FREQUENT MYOCLONIC SEIZURES" FOLLOWS WITH DR. GONZALEZ Nonalcoholic fatty liver disease Pancytopenia Chronic. Follows with cancer center. Platelets have been > 100 since 10/2019, WNL on 05/23 labs. H/H stable in 8-10 range. Parkinsonism Sleepiness Spleen enlargement Surgical History Femur fracture, right SPIRAL FRACTURE REPAIRED (HARDWARE REPAIRED) History of ankle surgery RT/LEFT History of appendectomy History of cholecystectomy History of colonoscopy History of esophagogastroduodenoscopy (EGD) History of kyphoplasty History of open reduction and internal fixation (ORIF) procedure RT HIP History of surgery (~06/02/20) screw/plate removal from left humerus History of surgery on arm LEFT (HARDWARE INTACT) History of tooth extraction History of vascular access device right A port Hx of carpal tunnel repair RT/LEFT Hx of cataract extraction RT/LEFT S/P laminectomy lumbar spine S/P nasal surgery nasal bone fracture repair S/P TIFFANIE-BSO (1997) Family History Other Adopted No pertinent family history Social History Smoking Status: Never smoker Tobacco Type: Cigarettes Second Hand Exposure: No; Hx Alcohol Use: No Hx Substance Use: No Preferred Language: Namibian Communication Ability: Effective Visual Impairment: No Limitations Clinical Application Consultant Required: No Beliefs That Will Affect Care: None marital status: . Current Living Situation: Spouse Current Living Situation Comment: Lives with Benny current occupational status: unemployed and disabled How many Children do You have: 0 Feels Safe at Home: Yes Seatbelt Use: always Assistive Devices: Walker Review of Systems Review of Systems: All systems reviewed & are unremarkable except as noted in HPI & below Physical Exam Physical Exam: Constitutional: well developed; + not well nourished and no acute distress Eyes: PERRL, conjunctivae normal, anicteric sclerae ENMT: external ear and nose normal, oropharynx normal Neck: trachea midline, no thyromegaly Respiratory: normal respiratory effort, lungs clear to auscultation Cardiovascular: RRR, no murmur, no edema Gastrointestinal (Abdomen): Inspection/Auscultation: normal bowel sounds Percussion/Palpation: abdomen soft; abdomen nontender, no guarding and abdomen not rigid Musculoskeletal: no cyanosis or clubbing, extremities motor strength 5/5 Skin: no rashes, warm and dry Neurologic: moves all extremities (weak LE b/l movements), awake and + confused (at baseline); no focal motor deficits (no lateralizing decifit) Psychiatric: Orientation: alert, oriented to person and oriented to place; + not oriented to time Genitourinary: no CVA tenderness Results & Data Results & Data ([facility]) Vital Signs (Past 12 Hours) Vital Signs Temp Pulse Pulse Resp BP BP Pulse Ox 01/19/21 15:15 65 65 20 125/57 L 100 01/19/21 15:05 64 24 125/57 L 100 01/19/21 14:33 66 23 100 01/19/21 13:55 100 01/19/21 13:48 37.3 C 92 H 18 132/53 L 100 PG Care Time/CCT Total # of Minutes Spent Total Time Spent with Patient: Total time spent is greater than 50% in coordination of care (as documented) at patient's floor/unit and/or counseling patient: Coding Level of Care Code 50191 Initial Inpt Care Lvl 3 Diagnoses Dyslipidemia E78.5 Acute hepatic encephalopathy K72.00 Hyperammonemia E72.20 Seizure R56.9 Blanca's thyroiditis E06.3 Diabetes mellitus E11.9
[2021-01-19] MEDS ORDERED: PROMETHAZINE HCL 25 MG TAB PO PRN (17:57)
[2021-01-19] MEDS ORDERED: Nursing to Pharmacy Communication SCH (21:15)
[2021-01-19] MEDS: MELATONIN 3 MG TAB PO SCH (21:28)
[2021-01-19] MEDS: rifAXIMin 550 MG TABLET PO SCH (21:28)
[2021-01-19] MEDS: BENZTROPINE MESYLATE 1 MG TAB PO SCH (21:28)
[2021-01-19] MEDS: LACTULOSE SYRUP 30 GM/45 ML UDP PO SCH (21:28)
[2021-01-19] MEDS: TOPIRAMATE 100 MG TAB PO SCH (21:28)
[2021-01-19] MEDS: PRAVASTATIN SOD 20 MG TAB PO SCH (21:28)
[2021-01-19] MEDS: rOPINIRole HCL 0.25 MG TABLET PO SCH (21:28)
[2021-01-19] MEDS: FAMOTIDINE 20 MG TAB PO SCH (21:28)
[2021-01-19] MEDS: levETIRAcetam 500 MG TAB PO SCH (21:28)
[2021-01-19] MEDS: MAGNESIUM OXIDE 400 MG TAB PO SCH (21:28)
[2021-01-19] MEDS: OXcarbazepine 150 MG TABLET PO SCH (21:28)
[2021-01-19] MEDS: HYDROCORTISONE 10 MG TAB PO SCH (21:39)
[2021-01-19] MEDS: ARTIFICIAL TEARS OP SCH (21:48)
[2021-01-19] MEDS: INSULIN ASPART 100 UNITS/ML 3 ML PEN SQ SCH (22:45)
[2021-01-20] MEDS ORDERED: HEPARIN 100 UNIT/ML 5ML FLUSH FLUSH PRN (01:34)
[2021-01-20 05:02] LABS: Hematocrit (blood only) 27.2 % (37-47); Hemoglobin 9.5 g/dL (12.0-16.0); Mean Corpuscular Hemoglobin 36.8 pg (25-34); Mean Corpuscular Hgb Conc 34.9 g/dL (32-36); Mean Corpuscular Volume 105.4 fL (80-100); RDW Coefficient of Variation 13.7 % (11.5-14.5); RDW Standard Deviation 52.5 fL (36.4-46.3); Red Blood Count 2.58 M/uL (4.2-5.4); White Blood Count 3.43 K/uL (4.8-10.8)
[2021-01-20 05:09] LABS: Mean Platelet Volume 9.6 fL (7.4-10.4); Platelet Count 76 K/uL (130-400)
[2021-01-20 05:22] LABS: Basophils # (auto) 0.02 K/uL (0-0.2); Basophils % (auto) 0.6 %; Eosinophils # (auto) 0.09 K/uL (0-0.5); Eosinophils % (auto) 2.6 %; Lymphocytes # (auto) 1.05 K/uL (1.2-3.4); Lymphocytes % (auto) 30.6 %; Monocytes # (auto) 0.38 K/uL (0.11-0.59); Monocytes % (auto) 11.1 %; Neutrophils # (auto) 1.89 K/uL (1.4-6.5); Neutrophils % (auto) 55.1 %; RBC Morphology Unremarkable
[2021-01-20 05:42] LABS: Albumin Level 2.2 gm/dl (3.4-5.0); BUN Creatinine Ratio 25.6 (10-20); Bilirubin Direct 0.5 mg/dl (0-0.2); Bilirubin,Total 1.6 mg/dl (0.2-1); Calcium 7.5 mg/dl (8.5-10.1); Creatinine Clr Calc Pharmacy 127.6 ml/min; Est GFR (African American) 125.5 ml/min; Est GFR (Non-African American) 108.3 ml/min; Potassium 3.6 mmol/L (3.5-5.1)
[2021-01-20] MEDS: INSULIN ASPART 100 UNITS/ML 3 ML PEN SQ SCH ×4 (06:05→22:39)
[2021-01-20] MEDS: LEVOTHYROXINE SODIUM 50 MCG TABLET PO SCH (06:07)
[2021-01-20] MEDS ORDERED: FLUTICASONE/VILANTEROL 200/25MCG 14 PUFFS/INHALER INH PRN (09:00)
[2021-01-20] MEDS: ARTIFICIAL TEARS OP SCH ×3 (09:59→20:34)
[2021-01-20] MEDS: ASCORBIC ACID 500 MG TAB PO SCH (10:00)
[2021-01-20] MEDS: BENZTROPINE MESYLATE 1 MG TAB PO SCH ×3 (10:00→20:33)
[2021-01-20] MEDS: CHOLECALCIFEROL 1,000 UNITS 25 MCG TAB PO SCH (10:01)
[2021-01-20] MEDS: HYDROCORTISONE 10 MG TAB PO SCH ×2 (10:02→18:09)
[2021-01-20] MEDS: FEXOFENADINE 60 MG TAB PO SCH (10:02)
[2021-01-20] MEDS: ESCITALOPRAM OXALATE 20 MG TAB PO SCH (10:02)
[2021-01-20] MEDS: LACTULOSE SYRUP 30 GM/45 ML UDP PO SCH ×4 (10:03→20:34)
[2021-01-20] MEDS: PANTOprazole 40 MG TAB PO SCH (10:04)
[2021-01-20] MEDS: levETIRAcetam 500 MG TAB PO SCH ×2 (10:04→20:32)
[2021-01-20] MEDS: OXcarbazepine 150 MG TABLET PO SCH ×2 (10:04→20:31)
[2021-01-20] MEDS: MAGNESIUM OXIDE 400 MG TAB PO SCH ×2 (10:04→20:31)
[2021-01-20] MEDS: TOPIRAMATE 100 MG TAB PO SCH ×2 (10:05→20:29)
[2021-01-20] MEDS: rOPINIRole HCL 0.25 MG TABLET PO SCH ×2 (10:05→20:29)
[2021-01-20] MEDS: rifAXIMin 550 MG TABLET PO SCH ×2 (10:05→20:30)
[2021-01-20] MEDS: INSULIN GLARGINE SOLOSTAR 100 UNITS/ML 3 ML PEN SQ SCH (10:10)
[2021-01-20] MEDS: ZINC SULFATE 220 MG CAPSULE PO SCH (14:34)
[2021-01-20] MEDS: CALCIUM CARBONATE 500 MG CHEWABLE TAB PO SCH (14:35)
[2021-01-20] MEDS: ADVANCED PROBIOTIC 1250 MG CAPSULE PO SCH (14:35)
[2021-01-20] MEDS: MULTIVITAMIN TAB PO SCH (14:35)
[2021-01-20] MEDS: VITAMIN B COMPLEX TAB PO SCH (14:36)
[2021-01-20 16:54] LABS: Appearance Urine Clear (Clear); Bilirubin Urine Negative (Negative); Blood Urine Negative (Negative); Color Urine Dark Yellow; Glucose Urine UA Negative (Negative); Ketones Urine Negative (Negative); Leukocyte Esterase Urine Negative (Negative); Nitrite Urine Negative (Negative); Protein Urine Negative (Negative); Specific Gravity Urine 1.016 (1.000-1.030); Urobilinogen Urine Negative (Negative); pH Urine 6.5 (4.5-7.5)
--- NOTE | 2021-01-20 20:27 | Hospitalist Progress Note ---
Date of Service January 20, 2021 Assessment & Plan (1) Acute hepatic encephalopathy: (2) Acute alteration in mental status: (3) Chronic hypernatremia: (4) Acute UTI: (5) Diabetes mellitus: (6) Seizure: (7) Pancytopenia: (8) Right thigh pain: (9) Cirrhosis: Plan: 1. cont lactulose for acute/chronic hepatic encephalopathy, titrate for 2-3 BMs/day. 2. cont rifaximin BID. 3. cont usual seizure and mental health meds. 4. pt had UTI during recent prior hospital stay - I ordered an I/O cath ua specimen with culture; ua neg. 5. right femur pain - etiology? consider x-rays; consider voltaren gel. 6. pancytopenia - cbc am. 7. cirrhosis appears compensated. 8. adjust basal-bolus insulin. Admission and Anticipated Discharge Date Admission Date: January 19, 2021 Subjective pt awake during the visit I had cared for her during her recent hospital stay a few weeks ago and she remembered my name she reported feeling better wants to eat denies cp, dyspnea, abd pain having stools only complaint is distal right leg pain near her surgical site from prior femur Fx had it repaired in July 2020 at [facility] states "it has hurt ever since" (ie - the surgery) Review of Systems Review of Systems: gen - mild weakness CV - no pain, no orthopnea pulm - no cough or congestion GI - no N/V Physical Exam Physical Exam: gen - NAD, awake, alert; severe tardive dyskinetic movements mouth - MM slightly dry neck - no JVD heart - RRR, s1 s2 lungs - CTA b/l abd - soft NT spleen palpable BS+ ext - no edema, pulses 2+ b/l skin - no rash; surgical scar distal right thigh, laterally musculo - right knee - no effusion, no warmth, no pain w/ passive ROM Results & Data Results & Data ([facility]) Vital Signs (Past 12 Hours) Vital Signs Temp Pulse Resp BP Pulse Ox 01/20/21 15:54 36.8 C 62 16 104/70 97 Laboratory Results Laboratory Results - last 24 hr 01/19/21 01/20/21 01/20/21 21:14 04:52 04:52 WBC 3.43 L RBC 2.58 L Hgb 9.5 L Hct 27.2 L MCV 105.4 H MCH 36.8 H MCHC 34.9 RDW Std Deviation 52.5 H RDW Coeff of Irina 13.7 Plt Count 76 L MPV 9.6 Immature Gran % (Auto) 0.0 Neut % (Auto) 55.1 Lymph % (Auto) 30.6 [place] % (Auto) 11.1 Eos % (Auto) 2.6 Baso % (Auto) 0.6 Neut # (Auto) 1.89 Lymph # (Auto) 1.05 L [place] # (Auto) 0.38 Eos # (Auto) 0.09 Baso # (Auto) 0.02 Immature Gran # (Auto) 0.00 RBC Morphology Unremarkable Sodium 146 H Potassium 3.6 Chloride 120 H Carbon Dioxide 24 Anion Gap 2.0 L BUN 13 Creatinine 0.51 L Est Cr Clr Drug Dosing 127.6 Est GFR ( Amer) 125.5 Est GFR (Non-Af Amer) 108.3 BUN/Creatinine Ratio 25.6 H Glucose 128 H POC Glucose 194 H Calcium 7.5 L Total Bilirubin 1.6 H Direct Bilirubin 0.5 H AST 35 ALT 44 Alkaline Phosphatase 141 H Ammonia Total Protein 5.0 L Albumin 2.2 L Urine Color Urine Appearance Urine pH Ur Specific [place] Urine Protein Urine Glucose (UA) Urine Ketones Urine Blood Urine Nitrite Urine Bilirubin Urine Urobilinogen Ur Leukocyte Esterase 01/20/21 01/20/21 01/20/21 04:52 06:03 11:59 WBC RBC Hgb Hct MCV MCH MCHC RDW Std Deviation RDW Coeff of Irina Plt Count MPV Immature Gran % (Auto) Neut % (Auto) Lymph % (Auto) [place] % (Auto) Eos % (Auto) Baso % (Auto) Neut # (Auto) Lymph # (Auto) [place] # (Auto) Eos # (Auto) Baso # (Auto) Immature Gran # (Auto) RBC Morphology Sodium Potassium Chloride Carbon Dioxide Anion Gap BUN Creatinine Est Cr Clr Drug Dosing Est GFR ( Amer) Est GFR (Non-Af Amer) BUN/Creatinine Ratio Glucose POC Glucose 113 H 109 H Calcium Total Bilirubin Direct Bilirubin AST ALT Alkaline Phosphatase Ammonia 76.0 H Total Protein Albumin Urine Color Urine Appearance Urine pH Ur Specific [place] Urine Protein Urine Glucose (UA) Urine Ketones Urine Blood Urine Nitrite Urine Bilirubin Urine Urobilinogen Ur Leukocyte Esterase 01/20/21 01/20/21 16:30 17:37 WBC RBC Hgb Hct MCV MCH MCHC RDW Std Deviation RDW Coeff of Irina Plt Count MPV Immature Gran % (Auto) Neut % (Auto) Lymph % (Auto) [place] % (Auto) Eos % (Auto) Baso % (Auto) Neut # (Auto) Lymph # (Auto) [place] # (Auto) Eos # (Auto) Baso # (Auto) Immature Gran # (Auto) RBC Morphology Sodium Potassium Chloride Carbon Dioxide Anion Gap BUN Creatinine Est Cr Clr Drug Dosing Est GFR ( Amer) Est GFR (Non-Af Amer) BUN/Creatinine Ratio Glucose POC Glucose 135 H Calcium Total Bilirubin Direct Bilirubin AST ALT Alkaline Phosphatase Ammonia Total Protein Albumin Urine Color Dark Yellow Urine Appearance Clear Urine pH 6.5 Ur Specific [place] 1.016 Urine Protein Negative Urine Glucose (UA) Negative Urine Ketones Negative Urine Blood Negative Urine Nitrite Negative Urine Bilirubin Negative Urine Urobilinogen Negative Ur Leukocyte Esterase Negative PG Care Time/CCT Total # of Minutes Spent Total Time Spent with Patient: Total time spent is greater than 50% in coordination of care (as documented) at patient's floor/unit and/or counseling patient: Coding Level of Care Code 89453 Subseq Hosp Care Lvl 2 Diagnoses Acute hepatic encephalopathy K72.00 Acute alteration in mental status R41.82 Chronic hypernatremia E87.0 Acute UTI N39.0 Diabetes mellitus E11.9 Seizure R56.9 Pancytopenia D61.818 Right thigh pain M79.651 Cirrhosis K74.60
[2021-01-20] MEDS: MELATONIN 3 MG TAB PO SCH (20:28)
[2021-01-20] MEDS: PRAVASTATIN SOD 20 MG TAB PO SCH (20:30)
[2021-01-20] MEDS: FAMOTIDINE 20 MG TAB PO SCH (22:38)
[2021-01-21] MEDS: LEVOTHYROXINE SODIUM 50 MCG TABLET PO SCH (06:00)
[2021-01-21 08:19] LABS: Hematocrit (blood only) 30.2 % (37-47); Hemoglobin 10.6 g/dL (12.0-16.0); Mean Corpuscular Hemoglobin 37.9 pg (25-34); Mean Corpuscular Hgb Conc 35.1 g/dL (32-36); Mean Corpuscular Volume 107.9 fL (80-100); RDW Coefficient of Variation 13.9 % (11.5-14.5); RDW Standard Deviation 54.2 fL (36.4-46.3); White Blood Count 4.34 K/uL (4.8-10.8)
[2021-01-21 08:21] LABS: Mean Platelet Volume 9.7 fL (7.4-10.4); Platelet Count 87 K/uL (130-400)
[2021-01-21] MEDS: OXcarbazepine 150 MG TABLET PO SCH ×2 (08:35→21:24)
[2021-01-21] MEDS: HYDROCORTISONE 10 MG TAB PO SCH ×2 (08:35→18:15)
[2021-01-21] MEDS: FEXOFENADINE 60 MG TAB PO SCH (08:36)
[2021-01-21] MEDS: PANTOprazole 40 MG TAB PO SCH (08:36)
[2021-01-21] MEDS: ASCORBIC ACID 500 MG TAB PO SCH (08:36)
[2021-01-21] MEDS: CHOLECALCIFEROL 1,000 UNITS 25 MCG TAB PO SCH (08:36)
[2021-01-21] MEDS: ESCITALOPRAM OXALATE 20 MG TAB PO SCH (08:36)
[2021-01-21] MEDS: rOPINIRole HCL 0.25 MG TABLET PO SCH ×2 (08:37→21:25)
[2021-01-21] MEDS: MAGNESIUM OXIDE 400 MG TAB PO SCH ×2 (08:37→21:24)
[2021-01-21] MEDS: TOPIRAMATE 100 MG TAB PO SCH ×2 (08:37→21:25)
[2021-01-21] MEDS: rifAXIMin 550 MG TABLET PO SCH ×2 (08:37→21:25)
[2021-01-21] MEDS: BENZTROPINE MESYLATE 1 MG TAB PO SCH ×3 (08:38→21:22)
[2021-01-21] MEDS: levETIRAcetam 500 MG TAB PO SCH ×2 (08:38→21:23)
[2021-01-21] MEDS: ARTIFICIAL TEARS OP SCH ×4 (08:39→21:28)
[2021-01-21] MEDS: INSULIN GLARGINE SOLOSTAR 100 UNITS/ML 3 ML PEN SQ SCH (08:40)
[2021-01-21] MEDS: LACTULOSE SYRUP 30 GM/45 ML UDP PO SCH ×4 (08:43→21:23)
[2021-01-21 08:57] LABS: BUN Creatinine Ratio 21.1 (10-20); Creatinine Clr Calc Pharmacy 116.2 ml/min; Est GFR (African American) 121.7 ml/min; Magnesium 1.8 mg/dl (1.8-2.4); Potassium 3.6 mmol/L (3.5-5.1)
[2021-01-21] MEDS ORDERED: TOCOPHERYL, DL-ALPHA 400 UNITS 180 MG CAP PO SCH (09:00)
[2021-01-21] MEDS: INSULIN ASPART 100 UNITS/ML 3 ML PEN SQ SCH ×4 (10:20→21:17)
[2021-01-21] MEDS: ADVANCED PROBIOTIC 1250 MG CAPSULE PO SCH (12:56)
[2021-01-21] MEDS: MULTIVITAMIN TAB PO SCH (12:56)
[2021-01-21] MEDS: ZINC SULFATE 220 MG CAPSULE PO SCH (12:56)
[2021-01-21] MEDS: VITAMIN B COMPLEX TAB PO SCH (12:57)
[2021-01-21] MEDS: CALCIUM CARBONATE 500 MG CHEWABLE TAB PO SCH (14:10)
[2021-01-21] MEDS: DICLOFENAC SOD 1% GEL 100 GM TUBE EXT SCH (21:22)
[2021-01-21] MEDS: FAMOTIDINE 20 MG TAB PO SCH (21:23)
[2021-01-21] MEDS: MELATONIN 3 MG TAB PO SCH (21:24)
[2021-01-21] MEDS: PRAVASTATIN SOD 20 MG TAB PO SCH (21:25)
--- NOTE | 2021-01-21 22:54 | Hospitalist Progress Note ---
Date of Service January 21, 2021 Assessment & Plan (1) Acute hepatic encephalopathy: Plan: acute/chronic acute resolved cont lactulose - aim 3 BMs/day rifaximin BID patient well-known to be NONCOMPLIANT WITH LACTULOSE AT HOME LEADING TO FREQUENT READMISSIONS I rechecked her for UTI as UTI can precipitate acute hepatic encephalopathy - u/a clear, recent UTI resolved (2) Acute alteration in mental status: Plan: resolved 2nd to #1 MS at baseline (3) Chronic hypernatremia: Plan: 2nd to GI losses from lactulose, poor liquid intake, etc repeat BMP am (4) Acute UTI: Plan: during recent hospital stay - resolved (5) Diabetes mellitus: Plan: adjust novolog cont lantus (6) Seizure: Plan: cont all home meds (7) Pancytopenia: Plan: chronic 2nd to cirrhosis (8) Right thigh pain: Plan: start voltaren gel qid pt's reports that the pain started recently and she has had trouble walking and bearing weight on that leg during the previous hospitalization, however, Marcelle told me that she hadn't been walking much since her R leg surgery in July [id number] this is a persistent complaint start with x-rays of R femur check venous duplex to r/o DVT consider more advanced imaging as needed (9) Cirrhosis: Plan: compensated from volume standpoint treating acute/chronic hepatic encephalopathy Plan: updated by phone today discharge hinges on results of right leg imaging studies Admission and Anticipated Discharge Date Admission Date: January 19, 2021 Subjective pt eating during the visit she is very awake and alert today her only complaint once again is that of distal right thigh pain at site of previous surgery 07/2020 she verified with me that she has used voltaren gel in the past and she has had no reaction/rash to such denies any other complaints I called and spoke with by phone this evening - he reported she has been c/o right foot pain recently? I explained to him that during my 2 visits with her she has only complained of her distal right thigh Review of Systems Review of Systems: gen - better appetite & energy today CV - no chest pain pulm - no cough or dyspnea GI - having multiple BMs; no N/V Physical Exam Physical Exam: gen - NAD, awake, alert; severe tardive dyskinetic movements; mental status is at baseline today mouth - MMM neck - no JVD heart - RRR, s1 s2 lungs - CTA b/l abd - soft NT; spleen palpable; BS+ ext - no edema, pulses 2+ b/l; b/l foot deformity (both feet turned inward); no pain with palpation of both feet skin - no rash; surgical scar distal right thigh, laterally musculo - right knee - no effusion, no warmth, no pain w/ passive ROM; right distal thigh - no warmth, no superficial abnormality Results & Data Results & Data ([facility]) Vital Signs (Past 12 Hours) Vital Signs Temp Pulse Resp BP Pulse Ox 01/21/21 16:00 36.2 C L 106 H 20 115/66 97 Laboratory Results Laboratory Results - last 24 hr 01/21/21 01/21/21 01/21/21 07:52 07:52 07:52 WBC 4.34 L RBC 2.80 L Hgb 10.6 L Hct 30.2 L MCV 107.9 H MCH 37.9 H MCHC 35.1 RDW Std Deviation 54.2 H RDW Coeff of Irina 13.9 Plt Count 87 L MPV 9.7 Sodium 147 H Potassium 3.6 Chloride 118 H Carbon Dioxide 23 Anion Gap 6.0 BUN 12 Creatinine 0.56 L Est Cr Clr Drug Dosing 116.2 Est GFR ( Amer) 121.7 Est GFR (Non-Af Amer) 105.0 BUN/Creatinine Ratio 21.1 H Glucose 98 POC Glucose Calcium 8.0 L Magnesium 1.8 Ammonia 71.6 H 01/21/21 01/21/21 01/21/21 12:05 17:15 20:43 WBC RBC Hgb Hct MCV MCH MCHC RDW Std Deviation RDW Coeff of Irina Plt Count MPV Sodium Potassium Chloride Carbon Dioxide Anion Gap BUN Creatinine Est Cr Clr Drug Dosing Est GFR ( Amer) Est GFR (Non-Af Amer) BUN/Creatinine Ratio Glucose POC Glucose 178 H 202 H 226 H Calcium Magnesium Ammonia PG Care Time/CCT Total # of Minutes Spent Total Time Spent with Patient: Total time spent is greater than 50% in coordination of care (as documented) at patient's floor/unit and/or counseling patient: Coding Level of Care Code 00114 Subseq Hosp Care Lvl 3 Diagnoses Acute hepatic encephalopathy K72.00 Acute alteration in mental status R41.82 Chronic hypernatremia E87.0 Acute UTI N39.0 Diabetes mellitus E11.9 Seizure R56.9 Pancytopenia D61.818 Right thigh pain M79.651 Cirrhosis K74.60
[2021-01-22] MEDS: LEVOTHYROXINE SODIUM 50 MCG TABLET PO SCH (06:10)
--- NOTE | 2021-01-22 06:54 | Ultrasound Report ---
ULTRASOUND RIGHT LOWER EXTREMITY VENOUS CLINICAL HISTORY: Right leg pain. COMPARISON STUDY: Right lower extremity venous ultrasound dated 06/28/2020. TECHNIQUE: Real-time, grayscale, and color Doppler sonography of the deep veins of the right lower ex tremity was performed from the inguinal crease to the calf. Compression and augmentation were utilize d. FINDINGS: There is no sonographic evidence of deep venous thrombosis identified in the right lower ex tremity. The common femoral, superficial femoral, and popliteal veins are patent and normally lorie sible. The greater saphenous vein and the profunda femoris vein at the junction with the common femor al vein are clear. The visualized calf veins are patent. IMPRESSION: There is no sonographic evidence of deep venous thrombosis identified in the right lower extremity. ACT 112: Negative or not required by law. Electronically signed by: Aiden Randolph M.D. 01/22/2021 6:53 AM
--- NOTE | 2021-01-22 06:54 | XRay Report ---
XR femur RT 2V routine HISTORY: 55 years-old Female previous surgery distal femur, pain acute right thigh pain history of p rior trauma and surgery COMPARISON: 12/11/2020 and 08/19/2020 femur radiographs TECHNIQUE: 2 views the right femur FINDINGS: Cortical thickening of the proximal femur is suggestive of a healed proximal femoral fracture. Status post removal of the intertrochanteric nail with medullary vijaya and distal femoral ORIF hardware. Ther e are numerous antibiotic beads of the distal thigh. There is ill-defined lucency involving the dista l femoral metadiaphysis which appears similar to 12/11/2020 exam. Mildly progressed soft tissue swelli ng of the distal thigh, most pronounced laterally. Demineralized appearance of the bones. No acute fracture or dislocation. Osteoarthritis of the hip an d knee. Trace knee joint effusion. IMPRESSION: 1. Chronic posttraumatic and postsurgical changes as above with prior hardware removal. 2. Ill-defined lucency of the distal femoral metadiaphysis is similar to comparison with numerous ant ibiotic beads. Follow-up recommended to exclude infection. 3. Progressively worsened soft tissue swelling of the distal thigh with trace joint effusion of the k nee. ACT 112: Negative or not required by law. The above report was generated using voice recognition software. It may contain grammatical, syntax o r spelling errors. Electronically signed by: Ruben Segura M.D. 01/22/2021 6:53 AM
[2021-01-22 08:27] LABS: BUN Creatinine Ratio 22.1 (10-20); Calcium 7.7 mg/dl (8.5-10.1); Creatinine Clr Calc Pharmacy 130.1 ml/min; Est GFR (African American) 126.3 ml/min; Potassium 3.6 mmol/L (3.5-5.1)
[2021-01-22] MEDS: LACTULOSE SYRUP 30 GM/45 ML UDP PO SCH ×2 (09:39→12:53)
[2021-01-22] MEDS: INSULIN GLARGINE SOLOSTAR 100 UNITS/ML 3 ML PEN SQ SCH (09:40)
[2021-01-22] MEDS: rifAXIMin 550 MG TABLET PO SCH (09:40)
[2021-01-22] MEDS: CHOLECALCIFEROL 1,000 UNITS 25 MCG TAB PO SCH (09:40)
[2021-01-22] MEDS: ADVANCED PROBIOTIC 1250 MG CAPSULE PO SCH (09:40)
[2021-01-22] MEDS: TOPIRAMATE 100 MG TAB PO SCH (09:41)
[2021-01-22] MEDS: rOPINIRole HCL 0.25 MG TABLET PO SCH (09:41)
[2021-01-22] MEDS: HYDROCORTISONE 10 MG TAB PO SCH (09:41)
[2021-01-22] MEDS: levETIRAcetam 500 MG TAB PO SCH (09:41)
[2021-01-22] MEDS: BENZTROPINE MESYLATE 1 MG TAB PO SCH (09:41)
[2021-01-22] MEDS: ASCORBIC ACID 500 MG TAB PO SCH (09:41)
[2021-01-22] MEDS: ESCITALOPRAM OXALATE 20 MG TAB PO SCH (09:41)
[2021-01-22] MEDS: PANTOprazole 40 MG TAB PO SCH (09:41)
[2021-01-22] MEDS: ARTIFICIAL TEARS OP SCH (09:42)
[2021-01-22] MEDS: MAGNESIUM OXIDE 400 MG TAB PO SCH (09:44)
[2021-01-22] MEDS: OXcarbazepine 150 MG TABLET PO SCH (09:44)
[2021-01-22] MEDS: FEXOFENADINE 60 MG TAB PO SCH (09:44)
[2021-01-22] MEDS: DICLOFENAC SOD 1% GEL 100 GM TUBE EXT SCH ×2 (09:44→12:52)
[2021-01-22] MEDS: INSULIN ASPART 100 UNITS/ML 3 ML PEN SQ SCH ×2 (09:46→12:55)
[2021-01-22] MEDS: VITAMIN B COMPLEX TAB PO SCH (12:52)
[2021-01-22] MEDS: ZINC SULFATE 220 MG CAPSULE PO SCH (12:52)
[2021-01-22] MEDS: CALCIUM CARBONATE 500 MG CHEWABLE TAB PO SCH (12:55)
[2021-01-22] MEDS: MULTIVITAMIN TAB PO SCH (12:55)
--- NOTE | 2021-01-22 16:00 | Discharge Summary ---
Date of Service January 22, 2021 Admission HPI Per Admitting Provider Abbi Munson is a medically complex 55 year old female who presents to the ER after worsening confusion. As per ED, reports that patient is compliant with her medications. is no longer at bedside at time of history taking. Patient is very confused and cannot contribute to the history. Principal Diagnosis 1. Acute hepatic encephalopathy/altered mental status 2. Hyperammonemiaimproved Discharge Exam General: Resting comfortably in her hospital bed. Resting head-bobbing noted (per other providers whom have taking care of patient in the past, this is chronic)/tardive dyskinesia. NAD. HEENT: Head is AT/NC buccal mucosa is moist and pink Neck: No JVD. Negative hepatojugular reflex Cardiac: RRR without M/G/R Lungs: CTA without W/R/R Abdomen: Normoactive X4. Soft and nontender in all quadrants. Extremities: Right thigh with incisional scar that is clean and dry. Is not erythematous or edematous. Neuro: A&O X4 cranial nerves II through XII are grossly intact no focal neuro deficits Skin: No obvious skin lesions or rashes Psych: Flat affect but answers all questions appropriately Discharge Data Allergies Allergy/AdvReac Type Severity Reaction Status Date / Time metronidazole Allergy Severe SEIZURE Verified 01/19/21 16:03 tramadol Allergy Severe SEIZURES Verified 01/19/21 16:03 amoxicillin Allergy Intermediate SEE COMMENT Verified 01/19/21 16:03 baclofen Allergy Intermediate RASH Verified 01/19/21 16:03 butalbital Allergy Intermediate HIVES Verified 01/19/21 16:03 ceftriaxone [From Rocephin] Allergy Intermediate Hives Verified 01/19/21 16:03 dicyclomine Allergy Intermediate HIVES Verified 01/19/21 16:03 pollen extracts Allergy Intermediate Hives Verified 01/19/21 16:03 Sulfa (Sulfonamide Allergy Intermediate CAUSES Verified 01/19/21 16:03 Antibiotics) BLACK STOOLS Tetracyclines Allergy Intermediate DOXYCYCLINE Verified 01/19/21 16:03 -HIVES adhesive Allergy Mild RASH, Verified 01/19/21 16:03 DUODERM=RED,ITCHY celecoxib Allergy Mild HIVES Verified 01/19/21 16:03 sulindac Allergy Mild ALLERGY Verified 01/19/21 16:03 LISTED "CLONDORAL"--HIVES Cephalosporins AdvReac Severe TURNS Verified 01/19/21 16:03 STOOL VERY DARK levofloxacin [From Levaquin] AdvReac Severe Vomiting Verified 01/19/21 16:03 metoclopramide AdvReac Severe SEIZURES Verified 01/19/21 16:03 paroxetine [From Paxil] AdvReac Severe Vomiting Verified 01/19/21 16:03 dextromethorphan AdvReac Mild Vomiting Verified 01/19/21 16:03 Consultations 01/19/21 17:35 ED Decision to Admit Stat Ordered Studies 01/19/21 14:01 CXR: Stable right portacatheter. Cardiomegaly is noted. The lungs are clear. No evidence of pleural effusion or pneumothorax. CT head/brain wo con Stat Impression: No acute intracranial hemorrhage, evidence of acute territorial infarction, or other acute intracranial disease process. 01/21/21 20:50 X-ray of right femur: IMPRESSION: 1. Chronic posttraumatic and postsurgical changes as above with prior hardware removal. 2. Ill-defined lucency of the distal femoral metadiaphysis is similar to comparison with numerous antibiotic beads. Follow-up recommended to exclude infection. 3. Progressively worsened soft tissue swelling of the distal thigh with trace joint effusion of the knee. US venous doppler LE RT Routine IMPRESSION: There is no sonographic evidence of deep venous thrombosis ident ified in the right lower extremity. Hospital Course (1) Acute hepatic encephalopathy: acute/chronic Ammonia level upon arrival was 172. Currently 44 Patient was receiving 2 doses of lactulose as a one-time dose prior to this hospitalization. Was increased to 4 times daily--> subsequently is having between 6 and 8 bowel movements a day Her mentation has returned to baseline with improvement of her ammonia level. Okay for discharge with increased dose of lactulose (will change to 3 times daily with goal of 2-3 BMs a day) Lengthy discussion with patient and her regarding the importance of medical compliance (as compliance has been questioned in the past) Continue rifaximin BID patient well-known to be NONCOMPLIANT WITH LACTULOSE AT HOME LEADING TO FREQUENT READMISSIONS No infection noted as cause of altered mental status (2) Acute alteration in mental status: resolved 2nd to #1 MS at baseline (3) Right thigh pain: Patient with old injury (had ORIF in 2018 with vijaya) July 2020, was subsequently found to have an infection (Enterococcus) for which hardware was removed and antibiotic beads placed. She completed 6 weeks of IV antibiotic therapy Patient has been having ongoing pain since X-ray of the femur shows a lucency in the distal femoral metadiaphysis similar to prior ESR and procalcitonin are both within normal limits. CRP drawn and pending. Does not appear to be actively/acutely infected Given recurrent surgeries to this area, will likely always have some degree of pain Started on Voltaren gel and this seems to be helping. DC with continued prescription reports that patient is unable to bear weight on this leg due to the pain; however, she has been ambulating to and from the bathroom (4) Diabetes mellitus: resume prehospital lantus/log (5) Seizure: cont prehospital home meds (6) Pancytopenia: chronic 2nd to cirrhosis (7) Cirrhosis: compensated from volume standpoint treating acute/chronic hepatic encephalopathy updated by phone today Total Time Total Time Spent Total Time Spent (In Minutes): 60 min including time spent with patient and D/W Discharge Plan Discharge Items Patient Disposition: Home - Self-Care Reason For Visit: HEPATIC ENCEPHALOPATHY Discharge Diagnosis: 1. Acute Hepatic Encephalopathy 2. Altered Mental Status- resolved. Secondary to #1 Activity: Resume your previous activity Non-emergency contact: Primary Care Provider Call non-emergency contact if: you have any medication questions Follow-up/Referrals: Jade Currie PA-C [Primary Care Provider] - 01/25/21 9:30 am Diet: Carb Consistent or DM2 Addtl Attending Provider Instructions: - You were hospitalized with a change in your mental status, related to an elevated ammonia level - In order to keep your ammonia level down, you need to be taking your lactulose and xifaxin as prescribed--> note that your lactulose has been increased (30mL to be taken 3x/day) as your ammonia level was high with you taking lactulose as prescribed. - The goal is for your to have 2-3 bowel movements a day. If you are NOT having this and your are taking your lactulose and xifaxin as prescribed, call your [facility]. - you can use the voltaren gel topically to the right thigh - follow up with your PCP: 7- 10 days - follow up with GI: 2 weeks - return to the ED for new or worsening symptoms Pending Studies at Discharge: No Stand-Alone Forms: My [facility] Medications and DC Order Prescriptions: New diclofenac sodium [Voltaren Arthritis Pain] 1 % Gel 4 g EXT QID Qty: 100 RF: 0 lactulose 20 gram/30 mL Solution 20 ml PO TID Qty: 3000 RF: 0 Continued ipratropium-albuterol 0.5 mg-3 mg(2.5 mg base)/3 mL solution for nebulization 3 ml INH QID PRN (Reason: wheezing) Qty: 90 RF: 0 Nurtec ODT 75 mg tablet,disintegrating 75 mg PO DAILY PRN (Reason: migraine headache) 30 Days Qty: 8 RF: 3 topiramate 100 mg tablet 100 mg PO BID Qty: 60 RF: 5 albuterol sulfate 90 mcg/actuation HFA aerosol inhaler 2 puff inhalation Q4H PRN (Reason: shortness of breath) Qty: 1 RF: 3 Xifaxan 550 mg tablet 550 mg PO BID Qty: 60 RF: 5 insulin aspart U-100 [Novolog Flexpen U-100 Insulin] 100 unit/mL (3 mL) insulin pen 15 - 25 unit SQ TID MDD 60 units Qty: 30 RF: 5 benztropine 1 mg tablet 1 mg PO TID 30 Days Qty: 90 RF: 1 levothyroxine [Euthyrox] 50 mcg tablet 50 mcg PO QAM Qty: 30 RF: 2 omeprazole 40 mg capsule,delayed release(DR/EC) 40 mg PO QAM Qty: 90 RF: 1 ropinirole 0.25 mg tablet 0.25 mg PO BID 90 Days Qty: 180 RF: 1 calcium carbonate [Calcium 500] 500 mg calcium (1,250 mg) tablet 500 mg PO DAILY RF: 0 levetiracetam 750 mg tablet 1,500 mg PO BID 30 Days Qty: 120 RF: 5 cholecalciferol (vitamin D3) [Vitamin D3] 25 mcg (1,000 unit) capsule 5,000 unit PO DAILY RF: 0 budesonide-formoterol [Symbicort] 160-4.5 mcg/actuation HFA aerosol inhaler 2 puff inhalation BID PRN (Reason: Shortness Of Breath) RF: 0 Tresiba FlexTouch U-100 100 unit/mL (3 mL) insulin pen 30 unit subcut QAM RF: 0 promethazine 25 mg tablet 25 mg PO Q8H PRN (Reason: nausea and vomiting) Qty: 10 RF: 0 famotidine 20 mg tablet 20 mg PO HS RF: 0 ascorbate calcium (vitamin C) 500 mg tablet 500 mg PO DAILY RF: 0 vitamin E (dl, acetate) 180 mg (400 unit) capsule 180 mg PO Q OTHER DAY RF: 0 epinephrine [EpiPen 2-Garret] 0.3 mg/0.3 mL auto-injector 0.3 mg IM Q10M PRN (Reason: Anaphylaxis) RF: 0 lecithin 1,200 mg capsule 1,200 mg PO QDL RF: 0 cranberry 400 mg capsule 400 mg PO BID RF: 0 multivitamin [Multiple Vitamins] Tablet 1 tab PO QDL RF: 0 zinc 50 mg Tablet 50 mg PO QDL RF: 0 vitamin A 8,000 unit Capsule 8,000 unit PO QDL RF: 0 vitamin B complex Tablet 1 tab PO QDL RF: 0 Probiotic 3 billion cell Capsule 1 mmu cells PO QDL RF: 0 Refresh Optive Advanced 0.5-1-0.5 % drops 2 drops OP TID RF: 0 fexofenadine 60 mg Tablet 60 mg PO QAM RF: 0 hydrocortisone 10 mg tablet See Rx Instructions .ROUTE .COMPLEX RF: 0 oxcarbazepine 300 mg tablet See Rx Instructions .ROUTE .COMPLEX RF: 0 pravastatin 20 mg tablet 20 mg PO QAM RF: 0 teriparatide [Forteo] 20 mcg/dose (620mcg/2.48mL) pen injector 20 mcg subcut PM RF: 0 escitalopram oxalate 20 mg tablet 20 mg PO DAILY RF: 0 melatonin 5 mg tablet 10 mg PO HS Qty: 1 RF: 0 magnesium oxide 400 mg (241.3 mg magnesium) tablet 400 mg PO BID Qty: 0 RF: 0 Discontinued acetaminophen [Acetaminophen Extra Strength] 500 mg Tablet 1,000 mg PO HS RF: 0 lactulose 20 gram/30 mL solution 30 g PO QAM Qty: 0 RF: 0 Discharge Orders: Discharge Order (Routine); Ordered 01/22/21 Ordered By: Kimberly Hansen Admission Data Admit Date/Time: 01/19/21 17:42 Attending Provider: Law Freeman Admit Provider: Marvel Suarez Primary Care Provider: Jade Currie Other Providers: Law Freeman Other Interventions: Discharge Summary Assessment (RN) Last Done: 01/22/21 13:35 Supervising Physician Co-Signing Physician Notes I supervised Kimberly Hansen PA-C on the care of this patient. I interviewed and examined the patient independently of her. The plan is as written in her not e except for any following changes/exceptions: None Doing well today. Reports some dizziness, but mental status is at baseline. Ready for discharge on adjusted dose of lactulose. Coding Level of Care Code D/C DAY MANAGEMENT >30 MINS Diagnoses Acute hepatic encephalopathy K72.00 Acute alteration in mental status R41.82 Diabetes mellitus E11.9 Seizure R56.9 Pancytopenia D61.818 Right thigh pain M79.651 Cirrhosis K74.60
== END 2021-01-22 14:17 | disposition home or self-care (01) | DRG 442 ==
LOC: ED 13:34 → SUATTDRO 17:42 → 3N 17:42

== ENCOUNTER 2021-01-30 20:50 | Inpatient (IN) ==
[2021-01-30] MEDS ORDERED: SODIUM CHLORIDE 0.9% 1000ML 1,000 ML IV SCH (23:45)
--- NOTE | 2021-01-30 23:57 | Emergency Department Note ---
History of Present Illness General Chief complaint: Weakness Stated complaint: POORLY RESPONSIVE, WEAKNESS Time Seen by Provider: 01/30/21 23:19 Source: family Mode of arrival: ambulatory Limitations: altered mental status History of Present Illness Provider complaint: Altered mental status Treatments prior to arrival: none This is a 55-year-old female who presents with family at bedside due to altered mental status. at bedside states he is concerned for possible urinary tract infection as he is noticed her urine appeared darker and had a stronger over over the last 2 to 3 days. He states she still seem to be in her usual state of health until earlier today when she began getting confused and then began behaving erratically. He states he did see her family doctor last week, and of also been in contact with the office of aging recently as she has had many recurrent issues requiring hospitalization and is requiring further care. He states he is concerned she may need assisted placement. Patient is well- known to the emergency department. Patient unable to answer any questions or follow commands at this time. Pt seen during a time of high acuity and national emergency pandemic while wearing PPE. Home Medications Medication Instructions Recorded Confirmed Type multivitamin (Multiple Vitamins) 1 tab PO QDL 12/26/17 01/30/21 History lactobacillus combination no.4 3 1 mmu cells PO QDL 09/20/18 01/30/21 History billion cell capsule (Probiotic) vitamin A 2,400 mcg capsule 8,000 unit PO QDL 09/20/18 01/30/21 History vitamin B complex 1 tab PO QDL 09/20/18 01/30/21 History zinc 50 mg tablet 50 mg PO QDL 02/09/19 01/30/21 History epinephrine 0.3 mg/0.3 mL 0.3 mg IM Q10M PRN 04/02/19 01/30/21 History injection, auto-injector (EpiPen 2-Garret) lecithin 1,200 mg capsule 1,200 mg PO QDL 04/29/19 01/30/21 History ipratropium 0.5 mg-albuterol 3 mg 3 ml INH QID PRN #90 ml 07/30/19 01/30/21 Rx (2.5 mg base)/3 mL nebulization soln xzktshwvjuvbydsgrkdhjm-avbisgrn-wyvrbwbf 2 drops OP TID 10/31/19 01/30/21 History 80 0.5 %-1 %-0.5 % eye drops (Refresh Optive Advanced) calcium carbonate 500 mg calcium 500 mg PO DAILY 01/27/20 01/30/21 History (1,250 mg) tablet (Calcium 500) rimegepant 75 mg disintegrating 75 mg PO DAILY PRN 30 Days #8 tab 03/21/20 01/30/21 Rx tablet (Nurtec ODT) fexofenadine 60 mg tablet 60 mg PO QAM 04/12/20 01/30/21 History topiramate 100 mg tablet 100 mg PO BID #60 tab 05/17/20 01/30/21 Rx albuterol sulfate 90 mcg/actuation 2 puff INHALATION Q4H PRN #1 05/31/20 01/30/21 Rx aerosol inhaler inhaler cranberry 400 mg capsule 400 mg PO BIDM 06/08/20 01/30/21 History rifaximin 550 mg tablet (Xifaxan) 550 mg PO BID #60 tab 07/24/20 01/30/21 Rx insulin aspart U-100 100 unit/mL 15 - 25 unit SQ TID #30 ml MDD 60 09/28/20 01/30/21 Rx (3 mL) subcutaneous pen (Novolog units Flexpen U-100 Insulin aspart) budesonide-formoterol HFA 160 2 puff INHALATION BID PRN inhaler 10/03/20 01/30/21 History mcg-4.5 mcg/actuation aerosol inhaler (Symbicort) insulin degludec 100 unit/mL (3 30 unit SUBCUT QAM ml 10/03/20 01/30/21 History mL) subcutaneous pen (Tresiba FlexTouch U-100 insulin) benztropine 1 mg tablet 1 mg PO TID 30 Days #90 tab 10/07/20 01/30/21 Rx promethazine 25 mg tablet 25 mg PO Q8H PRN #10 tab 10/11/20 01/30/21 Rx levetiracetam 750 mg tablet 1,500 mg PO BID 30 Days #120 tab 10/30/20 01/30/21 Rx levothyroxine 50 mcg tablet 50 mcg PO QAM #30 tab 11/10/20 01/30/21 Rx (Euthyrox) omeprazole 40 mg capsule,delayed 40 mg PO QAM #90 cap 11/15/20 01/30/21 Rx release ascorbate calcium (vitamin C) 500 500 mg PO DAILY 11/16/20 01/30/21 History mg tablet famotidine 20 mg tablet 20 mg PO HS tab 11/16/20 01/30/21 History vitamin E (dl, acetate) 180 mg 180 mg PO Q OTHER DAY cap 11/16/20 01/30/21 History (400 unit) capsule cholecalciferol (vitamin D3) 25 5,000 unit PO DAILY cap 11/30/20 01/30/21 History mcg (1,000 unit) capsule (Vitamin D3) hydrocortisone 10 mg tablet See Rx Instructions .ROUTE 11/30/20 01/30/21 History .COMPLEX tab oxcarbazepine 300 mg tablet See Rx Instructions .ROUTE 11/30/20 01/30/21 History .COMPLEX tab pravastatin 20 mg tablet 20 mg PO QAM 12/05/20 01/30/21 History teriparatide 20 mcg/dose (620 20 mcg SUBCUT PM 12/05/20 01/30/21 History mcg/2.48 mL) subcutaneous pen injector (Forteo) escitalopram oxalate 20 mg tablet 20 mg PO DAILY 12/29/20 01/30/21 History magnesium oxide 400 mg (241.3 mg 400 mg PO BID #0 tab 01/02/21 01/30/21 Rx magnesium) tablet melatonin 5 mg tablet 10 mg PO HS #1 tab 01/02/21 01/30/21 Rx ropinirole 0.25 mg tablet 0.25 mg PO BID 90 Days #180 tab 01/10/21 01/30/21 Rx diclofenac sodium 1 % topical gel 4 g EXT QID #100 g 01/22/21 01/30/21 Rx (Voltaren Arthritis Pain) lactulose 20 gram/30 mL oral 20 ml PO TID #3000 ml 01/22/21 01/30/21 Rx solution Allergies Allergy/AdvReac Type Severity Reaction Status Date / Time metronidazole Allergy Severe SEIZURE Verified 01/30/21 23:34 tramadol Allergy Severe SEIZURES Verified 01/30/21 23:34 amoxicillin Allergy Intermediate SEE COMMENT Verified 01/30/21 23:34 baclofen Allergy Intermediate RASH Verified 01/30/21 23:34 butalbital Allergy Intermediate HIVES Verified 01/30/21 23:34 ceftriaxone [From Rocephin] Allergy Intermediate Hives Verified 01/30/21 23:34 dicyclomine Allergy Intermediate HIVES Verified 01/30/21 23:34 pollen extracts Allergy Intermediate Hives Verified 01/30/21 23:34 Sulfa (Sulfonamide Allergy Intermediate CAUSES Verified 01/30/21 23:34 Antibiotics) BLACK STOOLS Tetracyclines Allergy Intermediate DOXYCYCLINE Verified 01/30/21 23:34 -HIVES adhesive Allergy Mild RASH, Verified 01/30/21 23:34 DUODERM=RED,ITCHY celecoxib Allergy Mild HIVES Verified 01/30/21 23:34 sulindac Allergy Mild ALLERGY Verified 01/30/21 23:34 LISTED "CLONDORAL"--HIVES Cephalosporins AdvReac Severe TURNS Verified 01/30/21 23:34 STOOL VERY DARK levofloxacin [From Levaquin] AdvReac Severe Vomiting Verified 01/30/21 23:34 metoclopramide AdvReac Severe SEIZURES Verified 01/30/21 23:34 paroxetine [From Paxil] AdvReac Severe Vomiting Verified 01/30/21 23:34 dextromethorphan AdvReac Mild Vomiting Verified 01/30/21 23:34 Past Med/Surg History Medical History (Updated 02/01/21 @ 00:16 by Trini Cutler DO) Acute UTI Depression Frequent falls See care alert special indicator. H/O osteoporotic pathological fracture Migraine Myoclonic seizure "FREQUENT MYOCLONIC SEIZURES" FOLLOWS WITH DR. YANG Nonalcoholic fatty liver disease Pancytopenia Chronic. Follows with cancer center. Platelets have been > 100 since 10/2019, WNL on 05/23 labs. H/H stable in 8-10 range. Parkinsonism Sleepiness Spleen enlargement Surgical History Femur fracture, right SPIRAL FRACTURE REPAIRED (HARDWARE REPAIRED) History of ankle surgery RT/LEFT History of appendectomy History of cholecystectomy History of colonoscopy History of esophagogastroduodenoscopy (EGD) History of kyphoplasty History of open reduction and internal fixation (ORIF) procedure RT HIP History of surgery (~06/02/20) screw/plate removal from left humerus History of surgery on arm LEFT (HARDWARE INTACT) History of tooth extraction History of vascular access device right A port Hx of carpal tunnel repair RT/LEFT Hx of cataract extraction RT/LEFT S/P laminectomy lumbar spine S/P nasal surgery nasal bone fracture repair S/P TIFFANIE-BSO (1997) Family History Other Adopted No pertinent family history Social History Smoking Status: Former smoker Tobacco Type: Cigarettes Second Hand Exposure: No; Hx Alcohol Use: No Hx Substance Use: No Preferred Language: Eritrean Communication Ability: Effective Visual Impairment: No Limitations Cardiology Manager Required: No Beliefs That Will Affect Care: None marital status: Current Living Situation: Spouse Current Living Situation Comment: Lives with current occupational status: unemployed and disabled How many Children do You have: 0 Feels Safe at Home: Yes Seatbelt Use: always Assistive Devices: Denture - Upper, Denture - Lower, Glasses, Walker and Wheelchair Review of Systems A total of 10 systems reviewed and were otherwise negative All systems reviewed & are unremarkable except as noted in HPI & below Physical Exam Vital Signs Vital Signs - 24 hr 01/31/21 03:39 01/31/21 03:40 01/31/21 03:50 Pulse Rate 65 64 65 Pulse Rate from SpO2 Sensor 65 64 64 Respiratory Rate 18 18 17 Pulse Oximetry 100 100 100 01/31/21 04:00 01/31/21 04:10 01/31/21 04:20 Pulse Rate 67 67 64 Pulse Rate from SpO2 Sensor 66 65 63 Respiratory Rate 20 25 H 18 Pulse Oximetry 100 100 99 01/31/21 04:30 01/31/21 04:40 01/31/21 04:50 Pulse Rate 64 80 74 Pulse Rate from SpO2 Sensor 65 82 74 Respiratory Rate 19 27 H 27 H Pulse Oximetry 99 86 L 99 01/31/21 05:00 01/31/21 05:10 01/31/21 05:20 Pulse Rate 71 77 80 Pulse Rate from SpO2 Sensor 73 73 81 Respiratory Rate 29 H 27 H 34 H Pulse Oximetry 97 97 93 01/31/21 05:30 Pulse Rate 72 Pulse Rate from SpO2 Sensor 72 Respiratory Rate 16 Pulse Oximetry 100 GENERAL: Awake, shaking head, staring and , moves spontaneously but will not follow instructions or command EYE EXAM: normal conjunctiva, PERRL and EOM's grossly intact OROPHARYNX: no exudate, no erythema, lips, buccal mucosa, and tongue normal and mucous membranes are moist NECK: supple, no nuchal rigidity, no adenopathy, non-tender LUNGS: Clear to auscultation. Normal chest wall mechanics, no w/r/r HEART: no murmurs, S1 normal and S2 normal ABDOMEN: abdomen soft, non-tender, normo-active bowel sounds, no masses, no rebound or guarding. BACK: Back is symmetrical on inspection and there is no deformity, no midline tenderness, no CVA tenderness. SKIN: no rashes and no bruising UPPER EXTREMITIES: upper extremities are grossly normal. FROM, nml pulses b/l. LOWER EXTREMITIES: No pitting edema. FROM, nml pulses b/l. NEURO EXAM: Patient will not answer questions cranial nerves II-XII grossly intact, patient would not cooperate for additional neuro testing, will not follow commands Course Administered Medications Benztropine Mesylate (Benztropine Mesylate 1 Mg Tab) 1 mg PO TID [facility] Stop: 03/02/21 08:59 Last Admin: 01/31/21 21:19 Dose: 1 mg Documented by: [id number] Admin: 01/31/21 14:09 Dose: 1 mg Documented by: [id number] Admin: 01/31/21 10:53 Dose: 1 mg Documented by: [id number] Lidocaine HCl 60 ml/Diphenhydramine HCl 150 mg/ Al Hydrox/Mg Hydrox/Simethicone 60 ml/ Glycerin 60 ml/ BARCODE IDENTIFIER 1 ea 0 ml PO Q4H PRN PRN Reason: Pain Stop: 03/02/21 16:08 Last Admin: 01/31/21 17:05 Dose: 5 ml Documented by: [id number] Diclofenac Sodium (Diclofenac Sod 1% Gel 100 Gm Tube) 4 gm EXT QID SHEBA Stop: 03/02/21 08:59 Last Admin: 01/31/21 21:19 Dose: Not Given Documented by: [id number] Admin: 01/31/21 18:11 Dose: 4 gm Documented by: [id number] Admin: 01/31/21 13:25 Dose: 4 gm Documented by: [id number] Admin: 01/31/21 10:55 Dose: 4 gm Documented by: [id number] Escitalopram Oxalate (Escitalopram Oxalate 20 Mg Tab) 20 mg PO DAILY [facility] Stop: 03/02/21 08:59 Last Admin: 01/31/21 10:52 Dose: 20 mg Documented by: [id number] Famotidine (Famotidine 20 Mg Tab) 20 mg PO HS [facility] Stop: 03/02/21 20:59 Last Admin: 01/31/21 22:09 Dose: 20 mg Documented by: [id number] Fexofenadine HCl (Fexofenadine 60 Mg Tab) 60 mg PO QAM [facility] Stop: 03/02/21 08:59 Last Admin: 01/31/21 10:53 Dose: 60 mg Documented by: [id number] Hydrocortisone (Hydrocortisone 10 Mg Tab) 10 mg PO QAM [facility] Stop: 03/02/21 08:59 Last Admin: 01/31/21 10:52 Dose: 10 mg Documented by: [id number] Hydrocortisone (Hydrocortisone 10 Mg Tab) 5 mg PO DAILY@1500 [facility] Stop: 03/02/21 14:59 Last Admin: 01/31/21 15:42 Dose: 5 mg Documented by: [id number] Lactated Ringer's (Lr) 1,000 mls @ 100 mls/hr IV .Q10H [facility] Stop: 02/01/21 02:59 Last Admin: 01/31/21 18:23 Dose: 100 mls/hr Documented by: [id number] Infusion: 01/31/21 18:23 Dose: 100 mls/hr Documented by: [id number] Admin: 01/31/21 13:01 Dose: 100 mls/hr Documented by: [id number] Insulin Aspart (Insulin Aspart 100 Units/Ml 3 Ml Pen) 0 units SC ACHS [facility] Stop: 03/02/21 07:29 Last Admin: 01/31/21 21:25 Dose: 4 units Documented by: [id number] Cosigned by: [id number] Admin: 01/31/21 18:09 Dose: 4 units Documented by: [id number] Cosigned by: [id number] Admin: 01/31/21 13:01 Dose: 3 units Documented by: [id number] Cosigned by: [id number] Admin: 01/31/21 11:04 Dose: 1 units Documented by: [id number] Cosigned by: [id number] Lactulose (Lactulose Syrup 20 Gm/30 Ml Udc) 20 gm PO TID [facility] Stop: 03/02/21 08:59 Last Admin: 01/31/21 21:21 Dose: 20 gm Documented by: [id number] Admin: 01/31/21 14:09 Dose: 20 gm Documented by: [id number] Admin: 01/31/21 10:56 Dose: 20 gm Documented by: [id number] Levetiracetam (Levetiracetam 500 Mg Tab) 1,500 mg PO BID [facility] Stop: 03/02/21 08:59 Last Admin: 01/31/21 21:22 Dose: 1,500 mg Documented by: [id number] Admin: 01/31/21 10:52 Dose: 1,500 mg Documented by: [id number] Levothyroxine Sodium (Levothyroxine Sodium 50 Mcg Tablet) 50 mcg PO DAILYBB [facility] Stop: 03/02/21 06:59 Last Admin: 01/31/21 10:53 Dose: 50 mcg Documented by: [id number] Magnesium Oxide (Magnesium Oxide 400 Mg Tab) 400 mg PO BID [facility] Stop: 03/02/21 08:59 Last Admin: 01/31/21 21:22 Dose: 400 mg Documented by: [id number] Admin: 01/31/21 10:53 Dose: 400 mg Documented by: [id number] Melatonin (Melatonin 3 Mg Tab) 9 mg PO HS [facility]; Protocol Stop: 03/02/21 20:59 Last Admin: 01/31/21 21:29 Dose: 9 mg Documented by: [id number] Oxcarbazepine (Oxcarbazepine 150 Mg Tablet) 300 mg PO QAM [facility] Stop: 03/02/21 08:59 Last Admin: 01/31/21 10:53 Dose: 300 mg Documented by: [id number] Oxcarbazepine (Oxcarbazepine 150 Mg Tablet) 600 mg PO PM [facility] Stop: 03/02/21 20:59 Last Admin: 01/31/21 21:24 Dose: 600 mg Documented by: [id number] Pravastatin Sodium (Pravastatin Sod 20 Mg Tab) 20 mg PO QAM [facility] Stop: 03/02/21 08:59 Last Admin: 01/31/21 10:55 Dose: 20 mg Documented by: [id number] Rifaximin (Rifaximin 550 Mg Tablet) 550 mg PO BID [facility] Stop: 03/02/21 08:59 Last Admin: 01/31/21 21:23 Dose: 550 mg Documented by: [id number] Admin: 01/31/21 10:53 Dose: 550 mg Documented by: [id number] Ropinirole HCl (Ropinirole Hcl 0.25 Mg Tablet) 0.25 mg PO BID [facility] Stop: 03/02/21 08:59 Last Admin: 01/31/21 21:23 Dose: 0.25 mg Documented by: [id number] Admin: 01/31/21 10:53 Dose: 0.25 mg Documented by: [id number] Topiramate (Topiramate 100 Mg Tab) 100 mg PO BID SHEBA Stop: 03/02/21 08:59 Last Admin: 01/31/21 21:24 Dose: 100 mg Documented by: [id number] Admin: 01/31/21 10:53 Dose: 100 mg Documented by: [id number] Discontinued Medications Sodium Chloride (Nss 1000ml) 1,000 mls @ 999 mls/hr IV .Q1H1M SHEBA Stop: 01/31/21 00:45 Last Infusion: 01/31/21 01:51 Dose: 0 mls/hr Documented by: [id number] Admin: 01/31/21 00:30 Dose: 999 mls/hr Documented by: [id number] Ceftriaxone Sodium (Rocephin) 2,000 mg in 70 mls @ 140 mls/hr IV NOW STA Stop: 01/31/21 04:58 Last Infusion: 01/31/21 05:42 Dose: 0 mls/hr Documented by: [id number] Admin: 01/31/21 04:59 Dose: 140 mls/hr Documented by: [id number] Insulin Glargine (Insulin Glargine Solostar 100 Units/Ml 3 Ml Pen) 25 units SC QAM SHEBA Stop: 03/02/21 08:59 Last Admin: 01/31/21 11:04 Dose: 25 units Documented by: [id number] Cosigned by: [id number] Lactulose (Lactulose Syrup 20 Gm/30 Ml Udc) 20 gm PO NOW STA Stop: 01/31/21 06:58 Last Admin: 01/31/21 11:04 Dose: Not Given Documented by: [id number] Medical Decision Making Differential Diagnosis Differential diagnoses includes but is not limited to toxic, metabolic, infectious, traumatic, cardiac, neurologic, hematologic, psychiatric and infl ammatory etiologies. Medical Records Attestation: I reviewed the patient's medical records. Home Medications Current Medication List: was personally reviewed by me Laboratory Data Attestation: I reviewed the patient's lab results. Result diagrams: 01/31/21 00:13 01/31/21 00:13 Lab Results 01/31/21 01/31/21 01/31/21 Range/Units 00:13 00:13 00:13 WBC 4.72 L (4.8-10.8) K/uL RBC 3.21 L (4.2-5.4) M/uL Hgb 12.0 (12.0-16.0) g/dL Hct 34.5 L (37-47) % MCV 107.5 H (80-100) fL MCH 37.4 H (25-34) pg MCHC 34.8 (32-36) g/dL RDW Std Deviation 53.8 H (36.4-46.3) fL RDW Coeff of Irina 13.8 (11.5-14.5) % Plt Count 99 L (130-400) K/uL MPV 9.8 (7.4-10.4) fL Immature Gran % (Auto) 0.0 % Neut % (Auto) 50.9 % Lymph % (Auto) 33.9 % [place] % (Auto) 11.4 % Eos % (Auto) 3.2 % Baso % (Auto) 0.6 % Neut # (Auto) 2.40 (1.4-6.5) K/uL Lymph # (Auto) 1.60 (1.2-3.4) K/uL [place] # (Auto) 0.54 (0.11-0.59) K/uL Eos # (Auto) 0.15 (0-0.5) K/uL Baso # (Auto) 0.03 (0-0.2) K/uL Immature Gran # (Auto) 0.00 (0.00-0.02) K/uL Platelet Estimate Decreased L (Normal) PT 12.9 H (9.0-12.0) Seconds INR 1.3 H (0.9-1.1) Sodium 147 H (136-145) mmol/L Potassium 4.0 (3.5-5.1) mmol/L Chloride 119 H (98-107) mmol/L Carbon Dioxide 23 (21-32) mmol/L Anion Gap 5.0 (3-11) BUN 19 H (7-18) mg/dl Creatinine 0.64 (0.6-1.2) mg/dl Est Cr Clr Drug Dosing Not Reportable Est GFR ( Amer) 116.4 ml/min Est GFR (Non-Af Amer) 100.5 ml/min BUN/Creatinine Ratio 29.5 H (10-20) Glucose 100 H (70-99) mg/dl Lactate (0.4-2.0) mmol/L Calcium 8.1 L (8.5-10.1) mg/dl Magnesium 1.9 (1.8-2.4) mg/dl Total Bilirubin 1.5 H (0.2-1) mg/dl AST 51 H (15-37) U/L ALT 71 (12-78) U/L Alkaline Phosphatase 220 H (45-117) U/L Ammonia (11-32) umol/L Total Protein 5.9 L (6.4-8.2) gm/dl Albumin 2.7 L (3.4-5.0) gm/dl Globulin 3.2 (2.5-4.0) gm/dl Albumin/Globulin Ratio 0.8 L (0.9-2) Procalcitonin (0-0.5) ng/ml TSH (0.300-4.500) uIu/ml Urine Color Urine Appearance (Clear) Urine pH (4.5-7.5) Ur Specific [place] (1.000-1.030) Urine Protein (Negative) Urine Glucose (UA) (Negative) Urine Ketones (Negative) Urine Blood (Negative) Urine Nitrite (Negative) Urine Bilirubin (Negative) Urine Urobilinogen (Negative) Ur Leukocyte Esterase (Negative) Urine WBC (Auto) (0-5) /hpf Urine RBC (Auto) (0-4) /hpf U Hyaline Cast (Auto) (0-5) /lpf U Epithel Cells (Auto) (0-5) /lpf Urine Bacteria (Auto) (Negative) COVID-19 Eval Order SARS-CoV-2 (PCR) (Negative) 01/31/21 01/31/21 01/31/21 Range/Units 00:13 00:13 00:18 WBC (4.8-10.8) K/uL RBC (4.2-5.4) M/uL Hgb (12.0-16.0) g/dL Hct (37-47) % MCV (80-100) fL MCH (25-34) pg MCHC (32-36) g/dL RDW Std Deviation (36.4-46.3) fL RDW Coeff of Irina (11.5-14.5) % Plt Count (130-400) K/uL MPV (7.4-10.4) fL Immature Gran % (Auto) % Neut % (Auto) % Lymph % (Auto) % [place] % (Auto) % Eos % (Auto) % Baso % (Auto) % Neut # (Auto) (1.4-6.5) K/uL Lymph # (Auto) (1.2-3.4) K/uL [place] # (Auto) (0.11-0.59) K/uL Eos # (Auto) (0-0.5) K/uL Baso # (Auto) (0-0.2) K/uL Immature Gran # (Auto) (0.00-0.02) K/uL Platelet Estimate (Normal) PT (9.0-12.0) Seconds INR (0.9-1.1) Sodium (136-145) mmol/L Potassium (3.5-5.1) mmol/L Chloride (98-107) mmol/L Carbon Dioxide (21-32) mmol/L Anion Gap (3-11) BUN (7-18) mg/dl Creatinine (0.6-1.2) mg/dl Est Cr Clr Drug Dosing Est GFR ( Amer) ml/min Est GFR (Non-Af Amer) ml/min BUN/Creatinine Ratio (10-20) Glucose (70-99) mg/dl Lactate 1.0 (0.4-2.0) mmol/L Calcium (8.5-10.1) mg/dl Magnesium (1.8-2.4) mg/dl Total Bilirubin (0.2-1) mg/dl AST (15-37) U/L ALT (12-78) U/L Alkaline Phosphatase (45-117) U/L Ammonia (11-32) umol/L Total Protein (6.4-8.2) gm/dl Albumin (3.4-5.0) gm/dl Globulin (2.5-4.0) gm/dl Albumin/Globulin Ratio (0.9-2) Procalcitonin < 0.05 (0-0.5) ng/ml TSH 7.870 H (0.300-4.500) uIu/ml Urine Color Urine Appearance (Clear) Urine pH (4.5-7.5) Ur Specific [place] (1.000-1.030) Urine Protein (Negative) Urine Glucose (UA) (Negative) Urine Ketones (Negative) Urine Blood (Negative) Urine Nitrite (Negative) Urine Bilirubin (Negative) Urine Urobilinogen (Negative) Ur Leukocyte Esterase (Negative) Urine WBC (Auto) (0-5) /hpf Urine RBC (Auto) (0-4) /hpf U Hyaline Cast (Auto) (0-5) /lpf U Epithel Cells (Auto) (0-5) /lpf Urine Bacteria (Auto) (Negative) COVID-19 Eval Order SARS-CoV-2 (PCR) (Negative) 01/31/21 01/31/21 01/31/21 Range/Units 01:57 01:57 03:25 WBC (4.8-10.8) K/uL RBC (4.2-5.4) M/uL Hgb (12.0-16.0) g/dL Hct (37-47) % MCV (80-100) fL MCH (25-34) pg MCHC (32-36) g/dL RDW Std Deviation (36.4-46.3) fL RDW Coeff of Irina (11.5-14.5) % Plt Count (130-400) K/uL MPV (7.4-10.4) fL Immature Gran % (Auto) % Neut % (Auto) % Lymph % (Auto) % [place] % (Auto) % Eos % (Auto) % Baso % (Auto) % Neut # (Auto) (1.4-6.5) K/uL Lymph # (Auto) (1.2-3.4) K/uL [place] # (Auto) (0.11-0.59) K/uL Eos # (Auto) (0-0.5) K/uL Baso # (Auto) (0-0.2) K/uL Immature Gran # (Auto) (0.00-0.02) K/uL Platelet Estimate (Normal) PT (9.0-12.0) Seconds INR (0.9-1.1) Sodium (136-145) mmol/L Potassium (3.5-5.1) mmol/L Chloride (98-107) mmol/L Carbon Dioxide (21-32) mmol/L Anion Gap (3-11) BUN (7-18) mg/dl Creatinine (0.6-1.2) mg/dl Est Cr Clr Drug Dosing Est GFR ( Amer) ml/min Est GFR (Non-Af Amer) ml/min BUN/Creatinine Ratio (10-20) Glucose (70-99) mg/dl Lactate (0.4-2.0) mmol/L Calcium (8.5-10.1) mg/dl Magnesium (1.8-2.4) mg/dl Total Bilirubin (0.2-1) mg/dl AST (15-37) U/L ALT (12-78) U/L Alkaline Phosphatase (45-117) U/L Ammonia (11-32) umol/L Total Protein (6.4-8.2) gm/dl Albumin (3.4-5.0) gm/dl Globulin (2.5-4.0) gm/dl Albumin/Globulin Ratio (0.9-2) Procalcitonin (0-0.5) ng/ml TSH (0.300-4.500) uIu/ml Urine Color [place] Urine Appearance Clear (Clear) Urine pH 7.5 (4.5-7.5) Ur Specific [place] 1.011 (1.000-1.030) Urine Protein Negative (Negative) Urine Glucose (UA) Negative (Negative) Urine Ketones Negative (Negative) Urine Blood Trace H (Negative) Urine Nitrite Negative (Negative) Urine Bilirubin Negative (Negative) Urine Urobilinogen Negative (Negative) Ur Leukocyte Esterase 3+ H (Negative) Urine WBC (Auto) >30 H (0-5) /hpf Urine RBC (Auto) 0-4 (0-4) /hpf U Hyaline Cast (Auto) 5-10 H (0-5) /lpf U Epithel Cells (Auto) 0-5 (0-5) /lpf Urine Bacteria (Auto) 4+ H (Negative) COVID-19 Eval Order Covid19 at [facility] SARS-CoV-2 (PCR) NEGATIVE (Negative) 01/31/21 Range/Units 04:20 WBC (4.8-10.8) K/uL RBC (4.2-5.4) M/uL Hgb (12.0-16.0) g/dL Hct (37-47) % MCV (80-100) fL MCH (25-34) pg MCHC (32-36) g/dL RDW Std Deviation (36.4-46.3) fL RDW Coeff of Irina (11.5-14.5) % Plt Count (130-400) K/uL MPV (7.4-10.4) fL Immature Gran % (Auto) % Neut % (Auto) % Lymph % (Auto) % [place] % (Auto) % Eos % (Auto) % Baso % (Auto) % Neut # (Auto) (1.4-6.5) K/uL Lymph # (Auto) (1.2-3.4) K/uL [place] # (Auto) (0.11-0.59) K/uL Eos # (Auto) (0-0.5) K/uL Baso # (Auto) (0-0.2) K/uL Immature Gran # (Auto) (0.00-0.02) K/uL Platelet Estimate (Normal) PT (9.0-12.0) Seconds INR (0.9-1.1) Sodium (136-145) mmol/L Potassium (3.5-5.1) mmol/L Chloride (98-107) mmol/L Carbon Dioxide (21-32) mmol/L Anion Gap (3-11) BUN (7-18) mg/dl Creatinine (0.6-1.2) mg/dl Est Cr Clr Drug Dosing Est GFR ( Amer) ml/min Est GFR (Non-Af Amer) ml/min BUN/Creatinine Ratio (10-20) Glucose (70-99) mg/dl Lactate (0.4-2.0) mmol/L Calcium (8.5-10.1) mg/dl Magnesium (1.8-2.4) mg/dl Total Bilirubin (0.2-1) mg/dl AST (15-37) U/L ALT (12-78) U/L Alkaline Phosphatase (45-117) U/L Ammonia 133.0 H (11-32) umol/L Total Protein (6.4-8.2) gm/dl Albumin (3.4-5.0) gm/dl Globulin (2.5-4.0) gm/dl Albumin/Globulin Ratio (0.9-2) Procalcitonin (0-0.5) ng/ml TSH (0.300-4.500) uIu/ml Urine Color Urine Appearance (Clear) Urine pH (4.5-7.5) Ur Specific [place] (1.000-1.030) Urine Protein (Negative) Urine Glucose (UA) (Negative) Urine Ketones (Negative) Urine Blood (Negative) Urine Nitrite (Negative) Urine Bilirubin (Negative) Urine Urobilinogen (Negative) Ur Leukocyte Esterase (Negative) Urine WBC (Auto) (0-5) /hpf Urine RBC (Auto) (0-4) /hpf U Hyaline Cast (Auto) (0-5) /lpf U Epithel Cells (Auto) (0-5) /lpf Urine Bacteria (Auto) (Negative) COVID-19 Eval Order SARS-CoV-2 (PCR) (Negative) MDM Narrative This is a 55-year-old female presents with altered mental status. The the suspicion of the recurrent UTI given change in the urine that is noticed over the last 2 days. 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 There was significant delay due to increased volume and acuity on the day of her presentation in staff obtaining a cath UA specimen. This did reveal likely UTI and patient was started on IV antibiotics after to review of prior cultures. Ammonia level has been added as well and was also elevated. Patient does have chronically elevated levels. Patient's other labs appear consistent with prior baseline. Patient had no obvious focal deficit to her extremity, no facial droop. 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 Case discussed with hospitalist for additional evaluation and management. Patient remained hemodynamically stable while in the emergency room. I do not suspect bacteremia/sepsis. An order was placed for continuous cardiac monitoring. The monitor shows a rate of _78__ with _normal sinus_ rhythm. Impression & Plan Altered mental status, Hyperammonemia, UTI (urinary tract infection), Thrombocytopenia, Hyperbilirubinemia Discharge Plan Visit Data Chief Complaint: Weakness Stated Complaint: POORLY RESPONSIVE, WEAKNESS ED Provider: Trini Cutler Discharge Problem: Altered mental status, Hyperammonemia, UTI (urinary tract infection), Thrombocytopenia, Hyperbilirubinemia Patient Disposition: Admitted As Inpatient Discharge Instructions Interventions: ED Discharge Assessment Last Done: 01/31/21 15:37 Discharge Problem: Altered mental status Qualifiers: Altered mental status type: unspecified Qualified Code(s): R41.82 - Altered mental status, unspecified UTI (urinary tract infection) Qualifiers: Urinary tract infection type: acute cystitis Hematuria presence: without hematuria Qualified Code(s): N30.00 - Acute cystitis without hematuria
[2021-01-31 00:22] LABS: Hematocrit (blood only) 34.5 % (37-47); Mean Corpuscular Hemoglobin 37.4 pg (25-34); Mean Corpuscular Hgb Conc 34.8 g/dL (32-36); Mean Corpuscular Volume 107.5 fL (80-100); RDW Coefficient of Variation 13.8 % (11.5-14.5); RDW Standard Deviation 53.8 fL (36.4-46.3); Red Blood Count 3.21 M/uL (4.2-5.4); White Blood Count 4.72 K/uL (4.8-10.8)
[2021-01-31 00:35] LABS: INR 1.3 (0.9-1.1); Prothrombin Time 12.9 Seconds (9.0-12.0)
[2021-01-31 00:49] LABS: Alanine Aminotransferase 71 U/L (12-78); Albumin Level 2.7 gm/dl (3.4-5.0); Aspartate Aminotransferase 51 U/L (15-37); BUN Creatinine Ratio 29.5 (10-20); Blood Urea Nitrogen 19 mg/dl (7-18); Calcium 8.1 mg/dl (8.5-10.1); Carbon Dioxide 23 mmol/L (21-32); Chloride 119 mmol/L (98-107); Est GFR (African American) 116.4 ml/min; Est GFR (Non-African American) 100.5 ml/min; Glucose 100 mg/dl (70-99); Magnesium 1.9 mg/dl (1.8-2.4); Sodium 147 mmol/L (136-145)
[2021-01-31 00:52] LABS: Albumin Globulin Ratio 0.8 (0.9-2); Alkaline Phosphatase 220 U/L (45-117); Bilirubin,Total 1.5 mg/dl (0.2-1); Globulin 3.2 gm/dl (2.5-4.0); Total Protein 5.9 gm/dl (6.4-8.2)
[2021-01-31 01:15] LABS: Basophils # (auto) 0.03 K/uL (0-0.2); Basophils % (auto) 0.6 %; Eosinophils # (auto) 0.15 K/uL (0-0.5); Eosinophils % (auto) 3.2 %; Lymphocytes % (auto) 33.9 %; Mean Platelet Volume 9.8 fL (7.4-10.4); Monocytes # (auto) 0.54 K/uL (0.11-0.59); Monocytes % (auto) 11.4 %; Neutrophils % (auto) 50.9 %; Platelet Count 99 K/uL (130-400); Platelet Estimate Decreased (Normal)
[2021-01-31 03:36] LABS: Appearance Urine Clear (Clear); Bacteria Urine Automated 4+ (Negative); Bilirubin Urine Negative (Negative); Blood Urine Trace (Negative); Color Urine Orange; Epithelial Cell Urine Auto 0-5 /lpf (0-5); Glucose Urine UA Negative (Negative); Ketones Urine Negative (Negative); Leukocyte Esterase Urine 3+ (Negative); Nitrite Urine Negative (Negative); Protein Urine Negative (Negative); RBC Urine Automated 0-4 /hpf (0-4); Specific Gravity Urine 1.011 (1.000-1.030); Urobilinogen Urine Negative (Negative); WBC Urine Automated >30 /hpf (0-5); pH Urine 7.5 (4.5-7.5)
[2021-01-31] MEDS ORDERED: cefTRIAXone SODIUM 2,000 MG/70 ML BAG IV STA (04:29)
--- NOTE | 2021-01-31 05:54 | History & Physical Report ---
Date of Service January 31, 2021 Assessment & Plan (1) Acute UTI: (2) Cirrhosis: (3) Diabetes mellitus: (4) Seizure: (5) Myoclonic seizure: Plan: (1) Acute UTI: Plan: 1. Acute UTI - patient with complaint of foul smelling darker colored urine. UA suggestive of infection. She is afebrile, HD stable. She is altered at this time which may be secondary to underlying infection. -Follow cultures, blood and urine sent in ER -Ceftriaxone 2gm IV daily 2. Hepatic encephalopathy: Patient with persistently elevated ammonia level. Ammonia =133 today. On exam patient is altered, minimally responsive and only following some commands. Hepatic encephalopathy may be playing a role in AMS. Uncertain regarding medication compliance prior to arrival. -Continue Lactulose daily. Titrate to 2-3 soft BMs/day -Continue rifaximin 550 mg p.o. twice daily 3. Cirrhosis: Patient with liver cirrhosis secondary to STEVE, portal hypertension. Patient follows with gastroenterology, last seen by Dr. Toledo on 10/11/20. Patient had an EGD in June 2020 which showed no varices and mild portal-hypertensive gastropathy. Recent abdominal ultrasound with stable cirrhosis. HCV screening has been completed and is negative. AFP on 03/09/2019 = 2.6. INR =1.3. Elevation of AP and Tbili comparable to prior levels. -Repeat LFTs in AM -Continue Lactulose -Continue Rifaximin 550 mg p.o. twice daily -Continue Pepcid 20mg po qHS - recently started by GI for complaint of nausea -Avoid hepatotoxic agents -Patient to have US in 1 year for HCC surveillance and EGD in 3 years for variceal screening. 4. Seizure disorder: Patient with history of seizure. She follows with neurology, last seen on 10/30/20 - follows for mixed tremor as well as dyskinesia and seizure history, parkinsonism. EEG completed in May 2018 revealed a generalized spike and slow wave abnormality consistent with an underlying generalized seizure disorder. Patient had an MRI brain completed in October 2017 which was unremarkable. Patient failed VNS placement in the past, device was explanted. Presently on topiramate, Trileptal and Keppra. -Continue Ropinirole -Continue topiramate -Continue Trileptal -Continue Keppra -Continue Benztropine 5. Diabetes: Patient with type 2 diabetes, well controlled, long-term use of insulin. Blood sugar today =100. Last hemoglobin A1c=5.6 on 05/23/20. Patient follows with Endocrinology/Diabetes education. Last seen on 01/04/21. -Continue Tresiba 30u -ISS -Goal blood sugar 100 - 140 -Recommend annual A1c monitoring -Followup with principal consulting engineer outpatient as instructed Adrenal insufficiency - recently diagnosed at [facility]. -Continue Hydrocortisone -Patient follows with Endocrinology - they are questioning the validity of ACTH deficiency diagnosis and are planning to repeat testing to confirm diagnosis. 6. Chronic gait disorder - patient mostly in wheelchair at home. -Fall precautions -Wheelchair and walker as needed -Assistance as needed with transfers and ambulation -Patient has home health nurse 7. Hypothyroidism -Continue Synthroid 8. GERD- Chronic. Stable. -Continue Omeprazole 40mg po daily, Famotidine 40mg po daily 9. Depression - Chronic. -Continue Escitalopram -Melatonin qhs 10. Asthma - history of severe persistent asthma. She has seen Pulmonary as well as Allergy/Immunology in the past. Spirometry performed on 04/23/19 with FVC=1.37, 38% predicted. FEV1=1.18, 40% predicted and FEV1/FVC=86%. Suggestive of restrictive process vs obstruction with air trapping. Study limited. Formal PFTs ordered, not yet completed. Presently CTA, adequate oxygenation on room air, no concern for exacerbation at this time. -Continue Breo Ellipta -Continue Spiriva -Continue Albuterol PRN 11. Migraine: Patient with episodic migraines. Well-controlled. -Continue topiramate -Patient has used Maxalt in the past with success for migraine relief if needed 12. Tremor: Patient with coarse postural and action tremor. -Continue topiramate F/E/N - LR. Monitor electrolytes and replete as needed Ppx - Low risk for DVT. Code - Full per chart review PT/OT and Case Management consultation for possible rehab placement. This has been discussed by the PCP History of Present Illness Chief Complaint: AMS Primary Care Provider: Jade Munson is a 55yo female with multiple medical problems presenting with altered mental status. Patient is well known to the ER and medical service. Patient was admitted to [facility] from 08/19/20 - 09/02/20 for infection of orthopedic hardware with enterococcus faecalis. She was also diagnosed with ACTH deficiency during that hospital stay and was started on steroid replacement therapy. She was discharged to rehabilitation on 09/02/20 and completed 3 weeks of rehab. Patient was admitted to [facility] from 12/05/20 - 12/08/20 for acute UTI and AMS. She was treated with Ceftriaxone and discharged on Bactrim. She returned home with health services at that time. Patient was admitted to [facility] from 12/29/20 - 01/02/21 following a syncopal event and treated for hepatic encephalopathy Patient was admitted to [facility] from 01/19/21 - 01/22/21 with worsening confusion due to acute on chronic hepatic encephalopathy Patient presents to the ER today for worsening confusion and erratic behavior. states he is concerned about UTI due to darker and stronger smelling urine over the last few days. Patient seen by PCP last week and has been in contact with the Office of Aging and are making movements to have patient placed in a long-term. Patient is unable to provide details of history. is no longer at bedside at time of interview. Patient denies pain. Is able to state name and answer some questions. ER Course: Ceftriaxone, NSS x 1L Allergies Allergy/AdvReac Type Severity Reaction Status Date / Time metronidazole Allergy Severe SEIZURE Verified 01/30/21 23:34 tramadol Allergy Severe SEIZURES Verified 01/30/21 23:34 amoxicillin Allergy Intermediate SEE COMMENT Verified 01/30/21 23:34 baclofen Allergy Intermediate RASH Verified 01/30/21 23:34 butalbital Allergy Intermediate HIVES Verified 01/30/21 23:34 ceftriaxone [From Rocephin] Allergy Intermediate Hives Verified 01/30/21 23:34 dicyclomine Allergy Intermediate HIVES Verified 01/30/21 23:34 pollen extracts Allergy Intermediate Hives Verified 01/30/21 23:34 Sulfa (Sulfonamide Allergy Intermediate CAUSES Verified 01/30/21 23:34 Antibiotics) BLACK STOOLS Tetracyclines Allergy Intermediate DOXYCYCLINE Verified 01/30/21 23:34 -HIVES adhesive Allergy Mild RASH, Verified 01/30/21 23:34 DUODERM=RED,ITCHY celecoxib Allergy Mild HIVES Verified 01/30/21 23:34 sulindac Allergy Mild ALLERGY Verified 01/30/21 23:34 LISTED "CLONDORAL"--HIVES Cephalosporins AdvReac Severe TURNS Verified 01/30/21 23:34 STOOL VERY DARK levofloxacin [From Levaquin] AdvReac Severe Vomiting Verified 01/30/21 23:34 metoclopramide AdvReac Severe SEIZURES Verified 01/30/21 23:34 paroxetine [From Paxil] AdvReac Severe Vomiting Verified 01/30/21 23:34 dextromethorphan AdvReac Mild Vomiting Verified 01/30/21 23:34 Home Medications Medication Instructions Recorded Confirmed Type multivitamin (Multiple Vitamins) 1 tab PO QDL 12/26/17 01/30/21 History lactobacillus combination no.4 3 1 mmu cells PO QDL 09/20/18 01/30/21 History billion cell capsule (Probiotic) vitamin A 2,400 mcg capsule 8,000 unit PO QDL 09/20/18 01/30/21 History vitamin B complex 1 tab PO QDL 09/20/18 01/30/21 History zinc 50 mg tablet 50 mg PO QDL 02/09/19 01/30/21 History epinephrine 0.3 mg/0.3 mL 0.3 mg IM Q10M PRN 04/02/19 01/30/21 History injection, auto-injector (EpiPen 2-Garret) lecithin 1,200 mg capsule 1,200 mg PO QDL 04/29/19 01/30/21 History ipratropium 0.5 mg-albuterol 3 mg 3 ml INH QID PRN #90 ml 07/30/19 01/30/21 Rx (2.5 mg base)/3 mL nebulization soln babyevvkqcceidabofmrtu-uhkjpzel-sheifqhn 2 drops OP TID 10/31/19 01/30/21 History 80 0.5 %-1 %-0.5 % eye drops (Refresh Optive Advanced) calcium carbonate 500 mg calcium 500 mg PO DAILY 01/27/20 01/30/21 History (1,250 mg) tablet (Calcium 500) rimegepant 75 mg disintegrating 75 mg PO DAILY PRN 30 Days #8 tab 03/21/20 01/30/21 Rx tablet (Nurtec ODT) fexofenadine 60 mg tablet 60 mg PO QAM 04/12/20 01/30/21 History topiramate 100 mg tablet 100 mg PO BID #60 tab 05/17/20 01/30/21 Rx albuterol sulfate 90 mcg/actuation 2 puff INHALATION Q4H PRN #1 05/31/20 01/30/21 Rx aerosol inhaler inhaler cranberry 400 mg capsule 400 mg PO BIDM 06/08/20 01/30/21 History rifaximin 550 mg tablet (Xifaxan) 550 mg PO BID #60 tab 07/24/20 01/30/21 Rx insulin aspart U-100 100 unit/mL 15 - 25 unit SQ TID #30 ml MDD 60 09/28/20 01/30/21 Rx (3 mL) subcutaneous pen (Novolog units Flexpen U-100 Insulin aspart) budesonide-formoterol HFA 160 2 puff INHALATION BID PRN inhaler 10/03/20 01/30/21 History mcg-4.5 mcg/actuation aerosol inhaler (Symbicort) insulin degludec 100 unit/mL (3 30 unit SUBCUT QAM ml 10/03/20 01/30/21 History mL) subcutaneous pen (Tresiba FlexTouch U-100 insulin) benztropine 1 mg tablet 1 mg PO TID 30 Days #90 tab 10/07/20 01/30/21 Rx promethazine 25 mg tablet 25 mg PO Q8H PRN #10 tab 10/11/20 01/30/21 Rx levetiracetam 750 mg tablet 1,500 mg PO BID 30 Days #120 tab 10/30/20 01/30/21 Rx levothyroxine 50 mcg tablet 50 mcg PO QAM #30 tab 11/10/20 01/30/21 Rx (Euthyrox) omeprazole 40 mg capsule,delayed 40 mg PO QAM #90 cap 11/15/20 01/30/21 Rx release ascorbate calcium (vitamin C) 500 500 mg PO DAILY 11/16/20 01/30/21 History mg tablet famotidine 20 mg tablet 20 mg PO HS tab 11/16/20 01/30/21 History vitamin E (dl, acetate) 180 mg 180 mg PO Q OTHER DAY cap 11/16/20 01/30/21 History (400 unit) capsule cholecalciferol (vitamin D3) 25 5,000 unit PO DAILY cap 11/30/20 01/30/21 History mcg (1,000 unit) capsule (Vitamin D3) hydrocortisone 10 mg tablet See Rx Instructions .ROUTE 11/30/20 01/30/21 History .COMPLEX tab oxcarbazepine 300 mg tablet See Rx Instructions .ROUTE 11/30/20 01/30/21 History .COMPLEX tab pravastatin 20 mg tablet 20 mg PO QAM 12/05/20 01/30/21 History teriparatide 20 mcg/dose (620 20 mcg SUBCUT PM 12/05/20 01/30/21 History mcg/2.48 mL) subcutaneous pen injector (Forteo) escitalopram oxalate 20 mg tablet 20 mg PO DAILY 12/29/20 01/30/21 History magnesium oxide 400 mg (241.3 mg 400 mg PO BID #0 tab 01/02/21 01/30/21 Rx magnesium) tablet melatonin 5 mg tablet 10 mg PO HS #1 tab 01/02/21 01/30/21 Rx ropinirole 0.25 mg tablet 0.25 mg PO BID 90 Days #180 tab 01/10/21 01/30/21 Rx diclofenac sodium 1 % topical gel 4 g EXT QID #100 g 01/22/21 01/30/21 Rx (Voltaren Arthritis Pain) lactulose 20 gram/30 mL oral 20 ml PO TID #3000 ml 01/22/21 01/30/21 Rx solution Past Med/Surg History Medical History (Updated 01/31/21 @ 06:02 by Amalia Beatty DO) Acute UTI Depression Frequent falls See care alert special indicator. H/O osteoporotic pathological fracture Migraine Myoclonic seizure "FREQUENT MYOCLONIC SEIZURES" FOLLOWS WITH DR. YANG Nonalcoholic fatty liver disease Pancytopenia Chronic. Follows with cancer center. Platelets have been > 100 since 10/2019, WNL on 05/23 labs. H/H stable in 8-10 range. Parkinsonism Sleepiness Spleen enlargement Surgical History Femur fracture, right SPIRAL FRACTURE REPAIRED (HARDWARE REPAIRED) History of ankle surgery RT/LEFT History of appendectomy History of cholecystectomy History of colonoscopy History of esophagogastroduodenoscopy (EGD) History of kyphoplasty History of open reduction and internal fixation (ORIF) procedure RT HIP History of surgery (~06/02/20) screw/plate removal from left humerus History of surgery on arm LEFT (HARDWARE INTACT) History of tooth extraction History of vascular access device right A port Hx of carpal tunnel repair RT/LEFT Hx of cataract extraction RT/LEFT S/P laminectomy lumbar spine S/P nasal surgery nasal bone fracture repair S/P TIFFANIE-BSO (1997) Family History Other Adopted No pertinent family history Social History Smoking Status: Never smoker Tobacco Type: Cigarettes Second Hand Exposure: No; Hx Alcohol Use: No Hx Substance Use: No Preferred Language: Argentine Communication Ability: Effective Visual Impairment: No Limitations Aviation Mechanic Required: No Beliefs That Will Affect Care: None marital status: . Current Living Situation: Spouse Current Living Situation Comment: Lives with current occupational status: unemployed and disabled How many Children do You have: 0 Feels Safe at Home: Yes Seatbelt Use: always Assistive Devices: Walker and Wheelchair Review of Systems Review of Systems: Unobtainable due to cognitive status Physical Exam Physical Exam: General: patient awake, minimally responsive, able to state name, bobbing head, does not participate with exam Skin: warm, dry, intact, scattered bruising on legs and arms HEENT: NC/AT, PERRL, EOMI, anicteric sclera, conjunctiva without injection, external ear normal to inspection and nontender, nares patent, dry mucus membranes, dentition intact, no oropharyngeal lesions, neck supple, trachea midline, no LAD, no thyromegaly, no JVD Heart: +S1/S2, regular, no m/r/g Lungs: equal air entry bilaterally, no rales/rhonchi/wheezes Abd: +BS, soft, NT/ND, no masses/organomegaly/ascites Ext: warm, 2+ pulses in UE/LE bilaterally, no clubbing/cyanosis or edema Neuro: moving extremities, bobbing head as seen during prior exams Results & Data Results & Data ([facility]) Vital Signs (Past 12 Hours) Vital Signs Temp Pulse Resp BP 01/30/21 21:00 36.5 C 77 16 119/75 Laboratory Results Laboratory Results WBC 4.72 K/uL (4.8-10.8) L 01/31/21 00:13 RBC 3.21 M/uL (4.2-5.4) L 01/31/21 00:13 Hgb 12.0 g/dL (12.0-16.0) 01/31/21 00:13 Hct 34.5 % (37-47) L 01/31/21 00:13 MCV 107.5 fL (80-100) H 01/31/21 00:13 MCH 37.4 pg (25-34) H 01/31/21 00:13 MCHC 34.8 g/dL (32-36) 01/31/21 00:13 RDW Std Deviation 53.8 fL (36.4-46.3) H 01/31/21 00:13 RDW Coeff of Irina 13.8 % (11.5-14.5) 01/31/21 00:13 Plt Count 99 K/uL (130-400) L 01/31/21 00:13 MPV 9.8 fL (7.4-10.4) 01/31/21 00:13 Immature Gran % (Auto) 0.0 % 01/31/21 00:13 Neut % (Auto) 50.9 % 01/31/21 00:13 Lymph % (Auto) 33.9 % 01/31/21 00:13 Sampson % (Auto) 11.4 % 01/31/21 00:13 Eos % (Auto) 3.2 % 01/31/21 00:13 Baso % (Auto) 0.6 % 01/31/21 00:13 Neut # (Auto) 2.40 K/uL (1.4-6.5) 01/31/21 00:13 Lymph # (Auto) 1.60 K/uL (1.2-3.4) 01/31/21 00:13 Sampson # (Auto) 0.54 K/uL (0.11-0.59) 01/31/21 00:13 Eos # (Auto) 0.15 K/uL (0-0.5) 01/31/21 00:13 Baso # (Auto) 0.03 K/uL (0-0.2) 01/31/21 00:13 Immature Gran # (Auto) 0.00 K/uL (0.00-0.02) 01/31/21 00:13 Platelet Estimate Decreased (Normal) L 01/31/21 00:13 PT 12.9 Seconds (9.0-12.0) H 01/31/21 00:13 INR 1.3 (0.9-1.1) H 01/31/21 00:13 Sodium 147 mmol/L (136-145) H 01/31/21 00:13 Potassium 4.0 mmol/L (3.5-5.1) 01/31/21 00:13 Chloride 119 mmol/L (98-107) H 01/31/21 00:13 Carbon Dioxide 23 mmol/L (21-32) 01/31/21 00:13 Anion Gap 5.0 (3-11) 01/31/21 00:13 BUN 19 mg/dl (7-18) H 01/31/21 00:13 Creatinine 0.64 mg/dl (0.6-1.2) 01/31/21 00:13 Est Cr Clr Drug Dosing Not Reportable 01/31/21 00:13 Est GFR ( Amer) 116.4 ml/min 01/31/21 00:13 Est GFR (Non-Af Amer) 100.5 ml/min 01/31/21 00:13 BUN/Creatinine Ratio 29.5 (10-20) H 01/31/21 00:13 Glucose 100 mg/dl (70-99) H 01/31/21 00:13 Lactate 1.0 mmol/L (0.4-2.0) 01/31/21 00:13 Calcium 8.1 mg/dl (8.5-10.1) L 01/31/21 00:13 Magnesium 1.9 mg/dl (1.8-2.4) 01/31/21 00:13 Total Bilirubin 1.5 mg/dl (0.2-1) H 01/31/21 00:13 AST 51 U/L (15-37) H 01/31/21 00:13 ALT 71 U/L (12-78) 01/31/21 00:13 Alkaline Phosphatase 220 U/L (45-117) H 01/31/21 00:13 Ammonia 133.0 umol/L (11-32) H 01/31/21 04:20 Total Protein 5.9 gm/dl (6.4-8.2) L 01/31/21 00:13 Albumin 2.7 gm/dl (3.4-5.0) L 01/31/21 00:13 Globulin 3.2 gm/dl (2.5-4.0) 01/31/21 00:13 Albumin/Globulin Ratio 0.8 (0.9-2) L 01/31/21 00:13 Procalcitonin < 0.05 ng/ml (0-0.5) 01/31/21 00:13 Urine Color [place] 01/31/21 03:25 Urine Appearance Clear (Clear) 01/31/21 03:25 Urine pH 7.5 (4.5-7.5) 01/31/21 03:25 Ur Specific [place] 1.011 (1.000-1.030) 01/31/21 03:25 Urine Protein Negative (Negative) 01/31/21 03:25 Urine Glucose (UA) Negative (Negative) 01/31/21 03:25 Urine Ketones Negative (Negative) 01/31/21 03:25 Urine Blood Trace (Negative) H 01/31/21 03:25 Urine Nitrite Negative (Negative) 01/31/21 03:25 Urine Bilirubin Negative (Negative) 01/31/21 03:25 Urine Urobilinogen Negative (Negative) 01/31/21 03:25 Ur Leukocyte Esterase 3+ (Negative) H 01/31/21 03:25 Urine WBC (Auto) >30 /hpf (0-5) H 01/31/21 03:25 Urine RBC (Auto) 0-4 /hpf (0-4) 01/31/21 03:25 U Hyaline Cast (Auto) 5-10 /lpf (0-5) H 01/31/21 03:25 U Epithel Cells (Auto) 0-5 /lpf (0-5) 01/31/21 03:25 Urine Bacteria (Auto) 4+ (Negative) H 01/31/21 03:25 COVID-19 Eval Order Covid19 at [facility] 01/31/21 01:57 SARS-CoV-2 (PCR) NEGATIVE (Negative) 01/31/21 01:57 PG Care Time/CCT Total # of Minutes Spent Total Time Spent with Patient: Total time spent is greater than 50% in coordination of care (as documented) at patient's floor/unit and/or counseling patient: Coding Level of Care Code 37632 Initial Inpt Care Lvl 3 Diagnoses Acute UTI N39.0 Cirrhosis K74.60 Diabetes mellitus E11.9 Seizure R56.9 Myoclonic seizure G40.409
[2021-01-31] MEDS ORDERED: GLUCOSE 40% GEL 15 GM TUBE PO PRN (06:39)
[2021-01-31] MEDS ORDERED: GLUCAGON FOR INJ 1 MG VIAL SQ PRN (06:39)
[2021-01-31] MEDS ORDERED: CARBOHYDRATES FOR HYPOGLYCEMIA PO PRN (06:39)
[2021-01-31] MEDS ORDERED: ONDANSETRON INJ 2 MG/ML 2 ML VIAL IV PRN (06:39)
[2021-01-31] MEDS ORDERED: ALBUTEROL HFA 8 GM INHALER INH PRN (06:39)
[2021-01-31] MEDS ORDERED: DEXTROSE 50% 50 ML SYRINGE IV PRN (06:39)
[2021-01-31] MEDS ORDERED: ALBUT/IPRATROP 3MG/0.5MG NEB 3 ML VIAL INH PRN (06:39)
[2021-01-31] MEDS ORDERED: GLUCOSE 10 TABS/TUBE PO PRN (06:39)
[2021-01-31] MEDS ORDERED: FLUTICASONE/VILANTEROL 200/25MCG 14 PUFFS/INHALER INH PRN (06:49)
[2021-01-31] MEDS ORDERED: LACTULOSE SYRUP 20 GM/30 ML UDC PO STA (06:57)
--- NOTE | 2021-01-31 07:32 | XRay Report ---
XR chest 1V portable HISTORY: 55 years-old Female SEPSIS acute sepsis COMPARISON: Chest radiograph 01/19/2021 TECHNIQUE: Portable AP view of the chest FINDINGS: The patient is mildly rotated towards the left. Cardiomegaly. Right IJ Rfwarf-t-Wgkw catheter is unch anged. There is no pneumothorax, pleural effusion, airspace consolidation or overt pulmonary edema. M ild interstitial coarsening has progressed. Degenerative changes of the shoulders and spine. IMPRESSION: Cardiomegaly with mild interstitial coarsening suggestive of pulmonary vascular congestio n or interstitial pneumonitis. ACT 112: Negative or not required by law. The above report was generated using voice recognition software. It may contain grammatical, syntax o r spelling errors. Electronically signed by: Ruben Segura M.D. 01/31/2021 7:30 AM
[2021-01-31] MEDS ORDERED: HYDROCORTISONE 10 MG TAB PO SCH ×2 (09:00→21:00)
[2021-01-31] MEDS ORDERED: INSULIN GLARGINE SOLOSTAR 100 UNITS/ML 3 ML PEN SC SCH (09:00)
[2021-01-31] MEDS: levETIRAcetam 500 MG TAB PO SCH ×2 (10:52→21:22)
[2021-01-31] MEDS: ESCITALOPRAM OXALATE 20 MG TAB PO SCH (10:52)
[2021-01-31] MEDS: HYDROCORTISONE 10 MG TAB PO SCH ×2 (10:52→15:42)
[2021-01-31] MEDS: TOPIRAMATE 100 MG TAB PO SCH ×2 (10:53→21:24)
[2021-01-31] MEDS: rifAXIMin 550 MG TABLET PO SCH ×2 (10:53→21:23)
[2021-01-31] MEDS: rOPINIRole HCL 0.25 MG TABLET PO SCH ×2 (10:53→21:23)
[2021-01-31] MEDS: FEXOFENADINE 60 MG TAB PO SCH (10:53)
[2021-01-31] MEDS: OXcarbazepine 150 MG TABLET PO SCH ×2 (10:53→21:24)
[2021-01-31] MEDS: LEVOTHYROXINE SODIUM 50 MCG TABLET PO SCH (10:53)
[2021-01-31] MEDS: MAGNESIUM OXIDE 400 MG TAB PO SCH ×2 (10:53→21:22)
[2021-01-31] MEDS: BENZTROPINE MESYLATE 1 MG TAB PO SCH ×3 (10:53→21:19)
[2021-01-31] MEDS: PRAVASTATIN SOD 20 MG TAB PO SCH (10:55)
[2021-01-31] MEDS: DICLOFENAC SOD 1% GEL 100 GM TUBE EXT SCH ×4 (10:55→21:19)
[2021-01-31] MEDS: LACTULOSE SYRUP 20 GM/30 ML UDC PO SCH ×3 (10:56→21:21)
--- NOTE | 2021-01-31 10:57 | Electrocardiogram Report ---
Test Reason : Blood Pressure : / mmHG Vent. Rate : 065 BPM Atrial Rate : 065 BPM P-R Int : 152 ms QRS Dur : 102 ms QT Int : 468 ms P-R-T Axes : 039 -17 014 degrees QTc Int : 486 ms Normal sinus rhythm Prolonged QT Poor R wave progression, consider anterior MO vs. lead placement vs. LVH Abnormal ECG When compared with ECG of 19-JAN-2021 13:43, No significant change was found Confirmed by Kevin Caldera ([id number]) on 01/31/2021 10:56:45 AM Referred By: REFERRED SELF Confirmed By:Marbin Caldera
[2021-01-31] MEDS: INSULIN ASPART 100 UNITS/ML 3 ML PEN SC SCH ×4 (11:04→21:25)
--- NOTE | 2021-01-31 12:56 | History & Physical Bridge Note ---
Date of Service January 31, 2021 History & Physical Bridge Note I have examined the patient, reviewed the History & Physical and in the interval since the performance of the History & Physical I have noted the following changes of clinical significance: Patient was seen at 12:00 and was eating lunch and wide-awake and alert and oriented x3. She is requesting that she be able to have her bring her Tresiba in from home. Otherwise has no complaints, no abdominal pain. Does complain of some dysuria. No other issues Vitals reviewed Gen: AAOx3, NAD HEENT: Anicteric sclerae, EOMI CV: RRR no mgr nl S1S2 Pulm: CTAB no wcr Abd: +BS soft NT ND no masses or hernias Ext: No edema Skin: No rashes, warm/dry Neuro: Full strength throughout, with resting tremor of the head and jaw Labs and rads reviewed 55-year-old female well-known to the hospitalist service with a history of Singletary cirrhosis, portal hypertension, seizure disorder, borderline personality disorder, DM 2, pancytopenia, migraines, and recurrent hepatic encephalopathy secondary to noncompliance, here with acute metabolic encephalopathy and UTI Now completely resolved Tolerating p.o. meds, received lactulose today Continue ceftriaxone for UTI It sounds that wants to look into prison placement for her-we will consult case management Continue usual home medications including lactulose and watch for regular bowel movements
[2021-01-31] MEDS: LACTATED RINGER'S 1,000 ML IV SCH ×2 (13:01→18:23)
[2021-01-31] MEDS: LIDOCAINE VISCOUS 2% SOLN 60 ML, diphenhydrAMINE Syrup 150 MG, ALUMINUM/MAGNESIUM SUSP ... PO PRN (17:05)
[2021-01-31] MEDS: MELATONIN 3 MG TAB PO SCH (21:29)
[2021-01-31] MEDS: FAMOTIDINE 20 MG TAB PO SCH (22:09)
[2021-02-01] MEDS: cefTRIAXone SODIUM 2,000 MG in DEXTROSE 5% 50 ML IV SCH (05:07)
[2021-02-01] MEDS: LEVOTHYROXINE SODIUM 50 MCG TABLET PO SCH (05:08)
[2021-02-01] MEDS: HEPARIN 100 UNIT/ML 5ML FLUSH FLUSH PRN (05:44)
[2021-02-01 06:05] LABS: Hemoglobin 9.6 g/dL (12.0-16.0); Mean Corpuscular Hemoglobin 37.1 pg (25-34); Mean Corpuscular Hgb Conc 35.6 g/dL (32-36); Mean Corpuscular Volume 104.2 fL (80-100); RDW Coefficient of Variation 13.3 % (11.5-14.5); RDW Standard Deviation 50.8 fL (36.4-46.3); Red Blood Count 2.59 M/uL (4.2-5.4); White Blood Count 3.67 K/uL (4.8-10.8)
[2021-02-01 06:06] LABS: Mean Platelet Volume 9.8 fL (7.4-10.4); Platelet Count 83 K/uL (130-400)
[2021-02-01 06:52] LABS: Albumin Level 2.1 gm/dl (3.4-5.0); BUN Creatinine Ratio 20.4 (10-20); Bilirubin Direct 0.4 mg/dl (0-0.2); Bilirubin,Total 1.2 mg/dl (0.2-1); Calcium 7.7 mg/dl (8.5-10.1); Creatinine Clr Calc Pharmacy 102.1 ml/min; Est GFR (African American) 121.7 ml/min
[2021-02-01 07:09] LABS: Basophils # (auto) 0.02 K/uL (0-0.2); Basophils % (auto) 0.5 %; Eosinophils # (auto) 0.09 K/uL (0-0.5); Eosinophils % (auto) 2.5 %; Lymphocytes # (auto) 1.15 K/uL (1.2-3.4); Lymphocytes % (auto) 31.3 %; Monocytes % (auto) 13.6 %; Neutrophils # (auto) 1.91 K/uL (1.4-6.5); Neutrophils % (auto) 52.1 %; Ovalocytes 1+
[2021-02-01] MEDS: INSULIN GLARGINE SOLOSTAR 100 UNITS/ML 3 ML PEN SC SCH (09:04)
[2021-02-01] MEDS: INSULIN ASPART 100 UNITS/ML 3 ML PEN SC SCH ×4 (09:04→21:07)
[2021-02-01] MEDS: OXcarbazepine 150 MG TABLET PO SCH ×2 (09:05→20:02)
[2021-02-01] MEDS: FEXOFENADINE 60 MG TAB PO SCH (09:06)
[2021-02-01] MEDS: HYDROCORTISONE 10 MG TAB PO SCH ×2 (09:06→16:06)
[2021-02-01] MEDS: ESCITALOPRAM OXALATE 20 MG TAB PO SCH (09:06)
[2021-02-01] MEDS: PRAVASTATIN SOD 20 MG TAB PO SCH (09:06)
[2021-02-01] MEDS: TOPIRAMATE 100 MG TAB PO SCH ×2 (09:07→20:03)
[2021-02-01] MEDS: MAGNESIUM OXIDE 400 MG TAB PO SCH ×2 (09:07→20:03)
[2021-02-01] MEDS: levETIRAcetam 500 MG TAB PO SCH ×2 (09:07→20:02)
[2021-02-01] MEDS: rifAXIMin 550 MG TABLET PO SCH ×2 (09:07→20:02)
[2021-02-01] MEDS: rOPINIRole HCL 0.25 MG TABLET PO SCH ×2 (09:07→20:02)
[2021-02-01] MEDS: BENZTROPINE MESYLATE 1 MG TAB PO SCH ×3 (09:08→20:01)
[2021-02-01] MEDS: LACTULOSE SYRUP 20 GM/30 ML UDC PO SCH ×3 (09:08→20:03)
[2021-02-01] MEDS: DICLOFENAC SOD 1% GEL 100 GM TUBE EXT SCH ×4 (09:08→20:03)
--- NOTE | 2021-02-01 16:06 | Hospitalist Progress Note ---
Date of Service February 01, 2021 Assessment & Plan (1) Acute UTI: (2) Cirrhosis: (3) Diabetes mellitus: (4) Seizure: (5) Myoclonic seizure: Plan: (1) Acute UTI: Plan: 1. Acute UTI - patient with complaint of foul smelling darker colored urine. UA suggestive of infection. She is afebrile, HD stable. She was altered on admission which quickly resolved without much intervention other than one dose of ceftriaxone-acute encephalopathy may be secondary to underlying infection. -Follow cultures, blood and urine sent in ER-Ur cx with GNR -continue Ceftriaxone 2gm IV daily -remove Isaac 2. Hepatic encephalopathy: Patient with persistently elevated ammonia level. Ammonia =133 on admission and was altered although she improved without much intervention. Uncertain regarding medication compliance prior to arrival. Moving bowels now No need to check NH3 levels while is awake and conversive -Continue Lactulose daily. Titrate to 2-3 soft BMs/day -Continue rifaximin 550 mg p.o. twice daily 3. Cirrhosis: Patient with liver cirrhosis secondary to STEVE, portal hypertension. Patient follows with gastroenterology, last seen by Dr. Toledo on 10/11/20. Patient had an EGD in June 2020 which showed no varices and mild portal-hypertensive gastropathy. Recent abdominal ultrasound with stable cirrhosis. HCV screening has been completed and is negative. AFP on 03/09/2019 = 2.6. INR =1.3. Elevation of AP and Tbili comparable to prior levels. -LFTs stable from previous COmpensated at this time -Continue Lactulose -Continue Rifaximin 550 mg p.o. twice daily -Continue Pepcid 20mg po qHS - recently started by GI for complaint of nausea -Avoid hepatotoxic agents -Patient to have US in 1 year for HCC surveillance and EGD in 3 years for variceal screening. 4. Seizure disorder: Patient with history of seizure. She follows with neurology, last seen on 10/30/20 - follows for mixed tremor as well as dyskinesia and seizure history, parkinsonism. EEG completed in May 2018 revealed a generalized spike and slow wave abnormality consistent with an underlying generalized seizure disorder. Patient had an MRI brain completed in October 2017 which was unremarkable. Patient failed VNS placement in the past, device was e xplanted. Presently on topiramate, Trileptal and Keppra. -Continue Ropinirole -Continue topiramate -Continue Trileptal -Continue Keppra -Continue Benztropine 5. Diabetes: Patient with type 2 diabetes, well controlled, long-term use of insulin. Last hemoglobin A1c=5.6 on 05/23/20. Patient follows with Endocrinology/Diabetes education. Last seen on 01/04/21. -Continue Lantus while here, Tresiba as outpt -ISS -Goal blood sugar 100 - 140 -Recommend annual A1c monitoring -Followup with special educator outpatient as instructed Adrenal insufficiency - recently diagnosed at [facility]. -Continue Hydrocortisone bid -Patient follows with Endocrinology - they are questioning the validity of ACTH deficiency diagnosis and are planning to repeat testing to confirm diagnosis. 6. Chronic gait disorder - patient mostly in wheelchair at home. -Fall precautions -Wheelchair and walker as needed -Assistance as needed with transfers and ambulation -Patient has home health nurse 7. Hypothyroidism TSH here elevated at 7.8, question compliance -Continue Synthroid home dose and repeat TFTs in 4-6 weeks 8. GERD- Chronic. Stable. -Continue Omeprazole 40mg po daily, Famotidine 40mg po daily 9. Depression - Chronic. -Continue Escitalopram -Melatonin qhs 10. Asthma - history of severe persistent asthma. She has seen Pulmonary as well as Allergy/Immunology in the past. Spirometry performed on 04/23/19 with FVC=1.37, 38% predicted. FEV1=1.18, 40% predicted and FEV1/FVC=86%. Suggestive of restrictive process vs obstruction with air trapping. Study limited. Formal PFTs ordered, not yet completed. Presently CTA, adequate oxygenation on room air, no concern for exacerbation at this time. -Continue Breo Ellipta -Continue Spiriva -Continue Albuterol PRN 11. Migraine: Patient with episodic migraines. Well-controlled. -Continue topiramate -Patient has used Maxalt in the past with success for migraine relief if needed 12. Tremor: Patient with coarse postural and action tremor. -Continue topiramate F/E/N - LR. Monitor electrolytes and replete as needed Ppx - Low risk for DVT. Code - Full per chart review PT/OT and Case Management consultation for filler leaf cutter long placement. This has been discussed by the PCP. Awaiting target process Admission and Anticipated Discharge Date Admission Date: January 31, 2021 Subjective Pt has no complaints. Was up with PT today and had bowel incontinence. Had some oral pain yesterday that is now resolved with magic swizzle. Review of Systems Review of Systems: All systems reviewed & are unremarkable except as noted in HPI & below Physical Exam Constitutional: WD/WN, vitals as above ENMT: external ear and nose normal, oropharynx normal Neck: trachea midline, no thyromegaly Respiratory: normal respiratory effort, lungs clear to auscultation Cardiovascular: RRR, no murmur, no edema Chest (Breasts): Chest: normal inspection of chest Gastrointestinal (Abdomen): normal bowel sounds, soft, nontender, no hepatosplenomegaly Musculoskeletal: Extremities: extremities normal to inspection; no cyanosis and no clubbing Skin: no rashes, warm and dry Neurologic: moves all extremities and awake; no focal motor deficits Mot or/Sensory: + tremor (choreiform movements of head that stop with distraction) Psychiatric: A+Ox3, euthymic affect Lymphatic: no lymphedema Results & Data Results & Data ([facility]) Vital Signs (Past 12 Hours) Vital Signs Temp Pulse Resp BP Pulse Ox 02/01/21 07:25 36.6 C 76 16 154/69 H 95 PG Care Time/CCT Total # of Minutes Spent Total Time Spent with Patient: Total time spent is greater than 50% in coordination of care (as documented) at patient's floor/unit and/or counseling patient: Coding Level of Care Code 46491 Subseq Hosp Care Lvl 2 Diagnoses Acute UTI N39.0 Cirrhosis K74.60 Diabetes mellitus E11.9 Seizure R56.9 Myoclonic seizure G40.409
[2021-02-01] MEDS: MELATONIN 3 MG TAB PO SCH (20:02)
[2021-02-01] MEDS: FAMOTIDINE 20 MG TAB PO SCH (20:02)
[2021-02-02] MEDS: LEVOTHYROXINE SODIUM 50 MCG TABLET PO SCH (05:38)
[2021-02-02] MEDS: cefTRIAXone SODIUM 2,000 MG in DEXTROSE 5% 50 ML IV SCH (05:50)
[2021-02-02] MEDS: HEPARIN 100 UNIT/ML 5ML FLUSH FLUSH PRN (06:20)
[2021-02-02 08:39] LABS: Hematocrit (blood only) 27.9 % (37-47); Hemoglobin 10.4 g/dL (12.0-16.0); Mean Corpuscular Hemoglobin 38.4 pg (25-34); Mean Corpuscular Hgb Conc 37.3 g/dL (32-36); RDW Coefficient of Variation 13.3 % (11.5-14.5); RDW Standard Deviation 49.5 fL (36.4-46.3); Red Blood Count 2.71 M/uL (4.2-5.4); White Blood Count 4.25 K/uL (4.8-10.8)
[2021-02-02 08:46] LABS: INR 1.3 (0.9-1.1); Prothrombin Time 13.2 Seconds (9.0-12.0)
[2021-02-02] MEDS: BENZTROPINE MESYLATE 1 MG TAB PO SCH ×3 (09:16→20:59)
[2021-02-02] MEDS: levETIRAcetam 500 MG TAB PO SCH ×2 (09:16→21:01)
[2021-02-02] MEDS: OXcarbazepine 150 MG TABLET PO SCH ×2 (09:16→21:02)
[2021-02-02] MEDS: rOPINIRole HCL 0.25 MG TABLET PO SCH ×2 (09:16→21:01)
[2021-02-02] MEDS: PRAVASTATIN SOD 20 MG TAB PO SCH (09:16)
[2021-02-02] MEDS: TOPIRAMATE 100 MG TAB PO SCH ×2 (09:16→21:03)
[2021-02-02] MEDS: ESCITALOPRAM OXALATE 20 MG TAB PO SCH (09:16)
[2021-02-02] MEDS: ACETAMINOPHEN 325 MG TAB PO PRN (09:16)
[2021-02-02] MEDS: MAGNESIUM OXIDE 400 MG TAB PO SCH ×2 (09:17→21:01)
[2021-02-02] MEDS: LACTULOSE SYRUP 20 GM/30 ML UDC PO SCH ×3 (09:17→21:00)
[2021-02-02] MEDS: DICLOFENAC SOD 1% GEL 100 GM TUBE EXT SCH ×4 (09:17→21:00)
[2021-02-02] MEDS: FEXOFENADINE 60 MG TAB PO SCH (09:17)
[2021-02-02] MEDS: HYDROCORTISONE 10 MG TAB PO SCH ×2 (09:17→16:41)
[2021-02-02] MEDS: rifAXIMin 550 MG TABLET PO SCH ×2 (09:17→21:02)
[2021-02-02] MEDS: INSULIN GLARGINE SOLOSTAR 100 UNITS/ML 3 ML PEN SC SCH (09:18)
[2021-02-02] MEDS: INSULIN ASPART 100 UNITS/ML 3 ML PEN SC SCH ×4 (09:19→21:04)
[2021-02-02 09:26] LABS: Albumin Level 2.2 gm/dl (3.4-5.0); BUN Creatinine Ratio 25.2 (10-20); Calcium 8.2 mg/dl (8.5-10.1); Creatinine Clr Calc Pharmacy 127.1 ml/min; Est GFR (African American) 130.7 ml/min; Est GFR (Non-African American) 112.8 ml/min; Magnesium 1.7 mg/dl (1.8-2.4); Potassium 3.7 mmol/L (3.5-5.1)
[2021-02-02 09:27] LABS: Albumin Globulin Ratio 0.7 (0.9-2); Total Protein 5.2 gm/dl (6.4-8.2)
[2021-02-02 09:50] LABS: Mean Platelet Volume 9.8 fL (7.4-10.4); Platelet Count 91 K/uL (130-400)
[2021-02-02 09:52] LABS: Basophils # (auto) 0.03 K/uL (0-0.2); Basophils % (auto) 0.7 %; Eosinophils # (auto) 0.15 K/uL (0-0.5); Eosinophils % (auto) 3.5 %; Immature Granulocytes # (auto) 0.01 K/uL (0.00-0.02); Immature Granulocytes % (auto) 0.2 %; Lymphocytes # (auto) 1.41 K/uL (1.2-3.4); Lymphocytes % (auto) 33.2 %; Monocytes # (auto) 0.43 K/uL (0.11-0.59); Monocytes % (auto) 10.1 %; Neutrophils # (auto) 2.22 K/uL (1.4-6.5); Neutrophils % (auto) 52.3 %
--- NOTE | 2021-02-02 13:13 | Hospitalist Progress Note ---
Date of Service February 02, 2021 Assessment & Plan (1) Acute UTI: (2) Cirrhosis: (3) Diabetes mellitus: (4) Seizure: (5) Myoclonic seizure: Plan: (1) Acute UTI: Plan: 1. Acute UTI - patient with complaint of foul smelling darker colored urine. UA suggestive of infection. She is afebrile, HD stable. She was altered on admission which quickly resolved without much intervention other than one dose of ceftriaxone-acute encephalopathy may be secondary to underlying infection. Ur cx with Proteus resis to FQs -continue Ceftriaxone 2gm IV daily x 2 more days 2. Hepatic encephalopathy: Patient with persistently elevated ammonia level. Ammonia =133 on admission and was altered although she improved without much intervention. Uncertain regarding medication compliance prior to arrival. Moving bowels now No need to check NH3 levels while is awake and conversive-doing well today -Continue Lactulose daily. Titrate to 2-3 soft BMs/day -Continue rifaximin 550 mg p.o. twice daily 3. Cirrhosis: Patient with liver cirrhosis secondary to STEVE, portal hypertension. Patient follows with gastroenterology, last seen by Dr. Toledo on 10/11/20. Patient had an EGD in June 2020 which showed no varices and mild portal-hypertensive gastropathy. Recent abdominal ultrasound with stable cirrhosis. HCV screening has been completed and is negative. AFP on 03/09/2019 = 2.6. INR =1.3. Elevation of AP and Tbili comparable to prior levels. -LFTs stable from previous Compensated at this time -Continue Lactulose -Continue Rifaximin 550 mg p.o. twice daily -Continue Pepcid 20mg po qHS - recently started by GI for complaint of nausea -Avoid hepatotoxic agents -Patient to have US in 1 year for HCC surveillance and EGD in 3 years for variceal screening. 4. Seizure disorder: Patient with history of seizure. She follows with neurology, last seen on 10/30/20 - follows for mixed tremor as well as dyskinesia and seizure history, parkinsonism. EEG completed in May 2018 revealed a generalized spike and slow wave abnormality consistent with an underlying generalized seizure disorder. Patient had an MRI brain completed in October 2017 which was unremarkable. Patient failed VNS placement in the past, device was explanted. Presently on topiramate, Trileptal and Keppra. -Continue Ropinirole -Continue topiramate -Continue Trileptal -Continue Keppra -Continue Benztropine 5. Diabetes: Patient with type 2 diabetes, well controlled, long-term use of insulin. Last hemoglobin A1c=5.6 on 05/23/20. Patient follows with Endocrinology/Diabetes education. Last seen on 01/04/21. -Continue Lantus while here, Tresiba as outpt -ISS -Goal blood sugar 100 - 140 -Recommend annual A1c monitoring -Followup with simulation educator outpatient as instructed Adrenal insufficiency - recently diagnosed at [facility] [place]. -Continue Hydrocortisone bid -Patient follows with Endocrinology - they are questioning the validity of ACTH deficiency diagnosis and are planning to repeat testing to confirm diagnosis. 6. Chronic gait disorder - patient mostly in wheelchair at home. -Fall precautions -Wheelchair and walker as needed -Assistance as needed with transfers and ambulation -Patient has home health nurse 7. Hypothyroidism TSH here elevated at 7.8, question compliance -Continue Synthroid home dose and repeat TFTs in 4-6 weeks 8. GERD- Chronic. Stable. -Continue Omeprazole 40mg po daily, Famotidine 40mg po daily 9. Depression - Chronic. -Continue Escitalopram -Melatonin qhs 10. Asthma - history of severe persistent asthma. She has seen Pulmonary as well as Allergy/Immunology in the past. Spirometry performed on 04/23/19 with FVC=1.37, 38% predicted. FEV1=1.18, 40% predicted and FEV1/FVC=86%. Suggestive of restrictive process vs obstruction with air trapping. Study limited. Formal PFTs ordered, not yet completed. Presently CTA, adequate oxygenation on room air, no concern for exacerbation at this time. -Continue Breo Ellipta -Continue Spiriva -Continue Albuterol PRN 11. Migraine: Patient with episodic migraines. Well-controlled. -Continue topiramate -Patient has used Maxalt in the past with success for migraine relief if needed 12. Tremor: Patient with coarse postural and action tremor. -Continue topiramate F/E/N - LR. Monitor electrolytes and replete as needed Ppx - Low risk for DVT. Code - Full per chart review PT/OT and Case Management consultation for long term care social worker placement. This has been discussed by the PCP. Awaiting target process Admission and Anticipated Discharge Date Admission Date: January 31, 2021 Subjective Pt has no complaints. Does not really want to go to a NH but knows her feels he can't care for her properly Review of Systems Review of Systems: All systems reviewed & are unremarkable except as noted in HPI & below Physical Exam Constitutional: WD/WN, vitals as above Eyes: + anicteric sclerae Neck: trachea midline, no thyromegaly Respiratory: normal respiratory effort, lungs clear to auscultation Cardiovascular: RRR, no murmur, no edema Chest (Breasts): Chest: normal inspection of chest Gastrointestinal (Abdomen): normal bowel sounds, soft, nontender, no hepato splenomegaly Musculoskeletal: Extremities: extremities normal to inspection; no cyanosis and no clubbing Skin: no rashes, warm and dry Neurologic: moves all extremities and awake; no focal motor deficits Motor/Sensory: + tremor (choreiform movements of head that stop with distraction) Psychiatric: A+Ox3, euthymic affect Lymphatic: no lymphedema Results & Data Results & Data ([facility]) Vital Signs (Past 12 Hours) Vital Signs Temp Pulse Resp BP Pulse Ox 02/02/21 11:51 36.5 C 90 22 120/69 96 02/02/21 07:59 36.6 C 71 18 137/70 100 Laboratory Results 02/02/21 02/02/21 02/02/21 Range/Units 11:20 08:16 08:16 WBC (4.8-10.8) K/uL RBC (4.2-5.4) M/uL Hgb (12.0-16.0) g/dL Hct (37-47) % MCV (80-100) fL MCH (25-34) pg MCHC (32-36) g/dL RDW Std Deviation (36.4-46.3) fL RDW Coeff of Irina (11.5-14.5) % Plt Count (130-400) K/uL MPV (7.4-10.4) fL Immature Gran % (Auto) % Neut % (Auto) % Lymph % (Auto) % [place] % (Auto) % Eos % (Auto) % Baso % (Auto) % Neut # (Auto) (1.4-6.5) K/uL Lymph # (Auto) (1.2-3.4) K/uL [place] # (Auto) (0.11-0.59) K/uL Eos # (Auto) (0-0.5) K/uL Baso # (Auto) (0-0.2) K/uL Immature Gran # (Auto) (0.00-0.02) K/uL PT 13.2 H (9.0-12.0) Seconds INR 1.3 H (0.9-1.1) Sodium 144 (136-145) mmol/L Potassium 3.7 (3.5-5.1) mmol/L Chloride 116 H (98-107) mmol/L Carbon Dioxide 22 (21-32) mmol/L Anion Gap 6.0 (3-11) BUN 11 (7-18) mg/dl Creatinine 0.45 L (0.6-1.2) mg/dl Est Cr Clr Drug Dosing 127.1 ml/min Est GFR ( Amer) 130.7 ml/min Est GFR (Non-Af Amer) 112.8 ml/min BUN/Creatinine Ratio 25.2 H (10-20) Glucose 133 H (70-99) mg/dl POC Glucose 246 H (70-99) mg/dl Calcium 8.2 L (8.5-10.1) mg/dl Magnesium 1.7 L (1.8-2.4) mg/dl Total Bilirubin 1.0 (0.2-1) mg/dl AST 50 H (15-37) U/L ALT 68 (12-78) U/L Alkaline Phosphatase 212 H (45-117) U/L Total Protein 5.2 L (6.4-8.2) gm/dl Albumin 2.2 L (3.4-5.0) gm/dl Globulin 3.0 (2.5-4.0) gm/dl Albumin/Globulin Ratio 0.7 L (0.9-2) 02/02/21 02/02/21 02/01/21 Range/Units 08:16 07:31 20:57 WBC 4.25 L (4.8-10.8) K/uL RBC 2.71 L (4.2-5.4) M/uL Hgb 10.4 L (12.0-16.0) g/dL Hct 27.9 L (37-47) % MCV 103.0 H (80-100) fL MCH 38.4 H (25-34) pg MCHC 37.3 H (32-36) g/dL RDW Std Deviation 49.5 H (36.4-46.3) fL RDW Coeff of Irina 13.3 (11.5-14.5) % Plt Count 91 L (130-400) K/uL MPV 9.8 (7.4-10.4) fL Immature Gran % (Auto) 0.2 % Neut % (Auto) 52.3 % Lymph % (Auto) 33.2 % [place] % (Auto) 10.1 % Eos % (Auto) 3.5 % Baso % (Auto) 0.7 % Neut # (Auto) 2.22 (1.4-6.5) K/uL Lymph # (Auto) 1.41 (1.2-3.4) K/uL [place] # (Auto) 0.43 (0.11-0.59) K/uL Eos # (Auto) 0.15 (0-0.5) K/uL Baso # (Auto) 0.03 (0-0.2) K/uL Immature Gran # (Auto) 0.01 (0.00-0.02) K/uL PT (9.0-12.0) Seconds INR (0.9-1.1) Sodium (136-145) mmol/L Potassium (3.5-5.1) mmol/L Chloride (98-107) mmol/L Carbon Dioxide (21-32) mmol/L Anion Gap (3-11) BUN (7-18) mg/dl Creatinine (0.6-1.2) mg/dl Est Cr Clr Drug Dosing ml/min Est GFR ( Amer) ml/min Est GFR (Non-Af Amer) ml/min BUN/Creatinine Ratio (10-20) Glucose (70-99) mg/dl POC Glucose 128 H 275 H (70-99) mg/dl Calcium (8.5-10.1) mg/dl Magnesium (1.8-2.4) mg/dl Total Bilirubin (0.2-1) mg/dl AST (15-37) U/L ALT (12-78) U/L Alkaline Phosphatase (45-117) U/L Total Protein (6.4-8.2) gm/dl Albumin (3.4-5.0) gm/dl Globulin (2.5-4.0) gm/dl Albumin/Globulin Ratio (0.9-2) 02/01/21 Range/Units 17:38 WBC (4.8-10.8) K/uL RBC (4.2-5.4) M/uL Hgb (12.0-16.0) g/dL Hct (37-47) % MCV (80-100) fL MCH (25-34) pg MCHC (32-36) g/dL RDW Std Deviation (36.4-46.3) fL RDW Coeff of Irina (11.5-14.5) % Plt Count (130-400) K/uL MPV (7.4-10.4) fL Immature Gran % (Auto) % Neut % (Auto) % Lymph % (Auto) % [place] % (Auto) % Eos % (Auto) % Baso % (Auto) % Neut # (Auto) (1.4-6.5) K/uL Lymph # (Auto) (1.2-3.4) K/uL [place] # (Auto) (0.11-0.59) K/uL Eos # (Auto) (0-0.5) K/uL Baso # (Auto) (0-0.2) K/uL Immature Gran # (Auto) (0.00-0.02) K/uL PT (9.0-12.0) Seconds INR (0.9-1.1) Sodium (136-145) mmol/L Potassium (3.5-5.1) mmol/L Chloride (98-107) mmol/L Carbon Dioxide (21-32) mmol/L Anion Gap (3-11) BUN (7-18) mg/dl Creatinine (0.6-1.2) mg/dl Est Cr Clr Drug Dosing ml/min Est GFR ( Amer) ml/min Est GFR (Non-Af Amer) ml/min BUN/Creatinine Ratio (10-20) Glucose (70-99) mg/dl POC Glucose 202 H (70-99) mg/dl Calcium (8.5-10.1) mg/dl Magnesium (1.8-2.4) mg/dl Total Bilirubin (0.2-1) mg/dl AST (15-37) U/L ALT (12-78) U/L Alkaline Phosphatase (45-117) U/L Total Protein (6.4-8.2) gm/dl Albumin (3.4-5.0) gm/dl Globulin (2.5-4.0) gm/dl Albumin/Globulin Ratio (0.9-2) PG Care Time/CCT Total # of Minutes Spent Total Time Spent with Patient: Total time spent is greater than 50% in coordination of care (as documented) at patient's floor/unit and/or counseling patient: Coding Level of Care Code 77124 Subseq Hosp Care Lvl 2 Diagnoses Acute UTI N39.0 Cirrhosis K74.60 Diabetes mellitus E11.9 Seizure R56.9 Myoclonic seizure G40.409
[2021-02-02] MEDS: FAMOTIDINE 20 MG TAB PO SCH (21:00)
[2021-02-02] MEDS: MELATONIN 3 MG TAB PO SCH (21:10)
[2021-02-03] MEDS: cefTRIAXone SODIUM 2,000 MG in DEXTROSE 5% 50 ML IV SCH (04:41)
[2021-02-03] MEDS: HEPARIN 100 UNIT/ML 5ML FLUSH FLUSH PRN (05:11)
[2021-02-03] MEDS: LEVOTHYROXINE SODIUM 50 MCG TABLET PO SCH (05:47)
[2021-02-03] MEDS: rOPINIRole HCL 0.25 MG TABLET PO SCH ×2 (09:17→22:06)
[2021-02-03] MEDS: OXcarbazepine 150 MG TABLET PO SCH ×2 (09:17→21:28)
[2021-02-03] MEDS: rifAXIMin 550 MG TABLET PO SCH ×2 (09:17→21:28)
[2021-02-03] MEDS: LACTULOSE SYRUP 20 GM/30 ML UDC PO SCH ×3 (09:17→21:26)
[2021-02-03] MEDS: FEXOFENADINE 60 MG TAB PO SCH (09:17)
[2021-02-03] MEDS: PRAVASTATIN SOD 20 MG TAB PO SCH (09:17)
[2021-02-03] MEDS: BENZTROPINE MESYLATE 1 MG TAB PO SCH ×3 (09:17→21:25)
[2021-02-03] MEDS: levETIRAcetam 500 MG TAB PO SCH ×2 (09:17→21:27)
[2021-02-03] MEDS: TOPIRAMATE 100 MG TAB PO SCH ×2 (09:17→21:29)
[2021-02-03] MEDS: ESCITALOPRAM OXALATE 20 MG TAB PO SCH (09:17)
[2021-02-03] MEDS: MAGNESIUM OXIDE 400 MG TAB PO SCH ×2 (09:18→21:27)
[2021-02-03] MEDS: INSULIN GLARGINE SOLOSTAR 100 UNITS/ML 3 ML PEN SC SCH (09:18)
[2021-02-03] MEDS: ACETAMINOPHEN 325 MG TAB PO PRN (09:18)
[2021-02-03] MEDS: DICLOFENAC SOD 1% GEL 100 GM TUBE EXT SCH ×4 (09:20→21:25)
[2021-02-03] MEDS: INSULIN ASPART 100 UNITS/ML 3 ML PEN SC SCH ×4 (09:23→21:35)
[2021-02-03] MEDS: HYDROCORTISONE 10 MG TAB PO SCH ×2 (09:44→15:39)
--- NOTE | 2021-02-03 10:45 | Hospitalist Progress Note ---
Date of Service February 03, 2021 Assessment & Plan (1) Acute UTI: (2) Cirrhosis: (3) Diabetes mellitus: (4) Seizure: (5) Myoclonic seizure: Plan: (1) Acute UTI: Plan: 1. Acute UTI - patient with complaint of foul smelling darker colored urine. UA suggestive of infection. She is afebrile, HD stable. She was altered on admission which quickly resolved without much intervention other than one dose of ceftriaxone-acute encephalopathy may be secondary to underlying infection. Ur cx with Proteus resis to FQs No sepsis, no fevers -continue Ceftriaxone 2gm IV daily x 5 days-today last dose then STOP 2. Hepatic encephalopathy: Patient with persistently elevated ammonia level. Ammonia =133 on admission and was altered although she improved without much intervention. Uncertain regarding medication compliance prior to arrival. Moving bowels now No need to check NH3 levels while is awake and conversive-doing well today from mental status -Continue Lactulose daily. Titrate to 2-3 soft BMs/day -Continue rifaximin 550 mg p.o. twice daily 3. Cirrhosis: Patient with liver cirrhosis secondary to STEVE, portal hypertension. Patient follows with gastroenterology, last seen by Dr. Toledo on 10/11/20. Patient had an EGD in June 2020 which showed no varices and mild portal-hypertensive gastropathy. Recent abdominal ultrasound with stable cirrhosis. HCV screening has been completed and is negative. AFP on 03/09/2019 = 2.6. INR =1.3. Elevation of AP and Tbili comparable to prior levels. -LFTs stable from previous Compensated at this time -Continue Lactulose -Continue Rifaximin 550 mg p.o. twice daily -Continue Pepcid 20mg po qHS - recently started by GI for complaint of nausea -Avoid hepatotoxic agents -Patient to have US in 1 year for HCC surveillance and EGD in 3 years for variceal screening. 4. Seizure disorder: Patient with history of seizure. She follows with neurology, last seen on 10/30/20 - follows for mixed tremor as well as dyskinesia and seizure history, parkinsonism. EEG completed in May 2018 revealed a generalized spike and slow wave abnormality consistent with an underlying generalized seizure disorder. Patient had an MRI brain completed in October 2017 which was unremarkable. Patient failed VNS placement in the past, device was explanted. Presently on topiramate, Trileptal and Keppra. -Continue Ropinirole -Continue topiramate -Continue Trileptal -Continue Keppra -Continue Benztropine for EPS 5. Diabetes: Patient with type 2 diabetes, well controlled, long-term use of insulin. Last hemoglobin A1c=5.6 on 05/23/20. Patient follows with Endocrinology/Diabetes education. Last seen on 01/04/21. -Continue Lantus while here, Tresiba as outpt -ISS -Goal blood sugar 100 - 140 -Recommend annual A1c monitoring -Followup with unit educator outpatient as instructed Adrenal insufficiency - recently diagnosed at [facility] [place]. -Continue Hydrocortisone bid -Patient follows with Endocrinology - they are questioning the validity of ACTH deficiency diagnosis and are planning to repeat testing to confirm diagnosis. 6. Chronic gait disorder - patient mostly in wheelchair at home. -Fall precautions -Wheelchair and walker as needed -Assistance as needed with transfers and ambulation -Patient has home health nurse -restart home B vitamin 7. Hypothyroidism TSH here elevated at 7.8, question compliance -Continue Synthroid home dose and repeat TFTs in 4-6 weeks 8. GERD- Chronic. Stable. -Continue Omeprazole 40mg po daily, Famotidine 40mg po daily 9. Depression - Chronic. -Continue Escitalopram -Melatonin qhs 10. Asthma - history of severe persistent asthma. She has seen Pulmonary as well as Allergy/Immunology in the past. Spirometry performed on 04/23/19 with FVC=1.37, 38% predicted. FEV1=1.18, 40% predicted and FEV1/FVC=86%. Suggestive of restrictive process vs obstruction with air trapping. Study limited. Formal PFTs ordered, not yet completed. Presently CTA, adequate oxygenation on room air, no concern for exacerbation at this time. -Continue Breo Ellipta -Continue Albuterol PRN 11. Migraine: Patient with episodic migraines. Well-controlled. -Continue topiramate -rimegepant prn for migraine relief if needed 12. Tremor: Patient with coarse postural and action tremor. -Continue topiramate 13. Osteoporosis-with h/o multiple fractures from falls -see if Forteo can be brought in from home -restart home calcium and Vit D Ppx - Low risk for DVT. Code - Full per chart review PT/OT-please see 3x/week Case Management consultation for senior care placement. This has been discussed by the PCP. Awaiting target process Admission and Anticipated Discharge Date Admission Date: January 31, 2021 Subjective Moving her bowels, no complaints. Asks if Tylenol can be scheduled for qhs as she takes at home Review of Systems Review of Systems: All systems reviewed & are unremarkable except as noted in HPI & below Physical Exam Constitutional: WD/WN, vitals as above Eyes: + anicteric sclerae ENMT: external ear and nose normal, oropharynx normal Neck: trachea midline, no thyromegaly Respiratory: normal respiratory effort, lungs clear to auscultation Cardiovascular: RRR, no murmur, no edema Chest (Breasts): Chest: normal inspection of chest Gastrointestinal (Abdomen): normal bowel sounds, soft, nontender, no hepatosplenomegaly Musculoskeletal: Extremities: extremities normal to inspection; no cyanosis and no clubbing Skin: no rashes, warm and dry Neurologic: moves all extremities and awake; no focal motor deficits Motor/Sensory: + tremor (choreiform movements of head that stop with distraction) Psychiatric: A+Ox3, euthymic affect Lymphatic: no lymphedema Results & Data Results & Data ([facility]) Vital Signs (Past 12 Hours) Vital Signs Temp Pulse Pulse Resp BP Pulse Ox 02/03/21 07:12 36.4 C L 68 18 115/73 95 02/02/21 22:54 36.5 C 66 14 140/69 96 PG Care Time/CCT Total # of Minutes Spent Total Time Spent with Patient: Total time spent is greater than 50% in coordination of care (as documented) at patient's floor/unit and/or counseling patient: Coding Level of Care Code 49547 Subseq Hosp Care Lvl 2 Diagnoses Acute UTI N39.0 Cirrhosis K74.60 Diabetes mellitus E11.9 Seizure R56.9 Myoclonic seizure G40.409
[2021-02-03] MEDS: ZINC SULFATE 220 MG CAPSULE PO SCH (11:41)
[2021-02-03] MEDS: ADVANCED PROBIOTIC 1250 MG CAPSULE PO SCH (11:42)
[2021-02-03] MEDS: VITAMIN B COMPLEX TAB PO SCH (11:42)
[2021-02-03] MEDS: CEROVITE ADV FORMULA TAB PO SCH (12:31)
[2021-02-03] MEDS: ACETAMINOPHEN 500 MG TAB PO SCH (21:23)
[2021-02-03] MEDS: FAMOTIDINE 20 MG TAB PO SCH (21:26)
[2021-02-03] MEDS: MELATONIN 3 MG TAB PO SCH (21:28)
[2021-02-04] MEDS: LEVOTHYROXINE SODIUM 50 MCG TABLET PO SCH (06:16)
[2021-02-04] MEDS: FEXOFENADINE 60 MG TAB PO SCH (09:26)
[2021-02-04] MEDS: CHOLECALCIFEROL 1,000 UNITS 25 MCG TAB PO SCH (09:26)
[2021-02-04] MEDS: BENZTROPINE MESYLATE 1 MG TAB PO SCH ×3 (09:26→20:33)
[2021-02-04] MEDS: HYDROCORTISONE 10 MG TAB PO SCH ×2 (09:26→15:34)
[2021-02-04] MEDS: levETIRAcetam 500 MG TAB PO SCH ×2 (09:27→20:34)
[2021-02-04] MEDS: ASCORBIC ACID 500 MG TAB PO SCH (09:27)
[2021-02-04] MEDS: PRAVASTATIN SOD 20 MG TAB PO SCH (09:27)
[2021-02-04] MEDS: rOPINIRole HCL 0.25 MG TABLET PO SCH ×2 (09:27→20:33)
[2021-02-04] MEDS: LACTULOSE SYRUP 20 GM/30 ML UDC PO SCH ×4 (09:27→20:46)
[2021-02-04] MEDS: rifAXIMin 550 MG TABLET PO SCH ×2 (09:27→20:33)
[2021-02-04] MEDS: CALCIUM CARBONATE 1250MG TAB PO SCH (09:27)
[2021-02-04] MEDS: OXcarbazepine 150 MG TABLET PO SCH ×2 (09:27→20:34)
[2021-02-04] MEDS: MAGNESIUM OXIDE 400 MG TAB PO SCH ×2 (09:27→20:33)
[2021-02-04] MEDS: TOPIRAMATE 100 MG TAB PO SCH ×2 (09:27→20:33)
[2021-02-04] MEDS: DICLOFENAC SOD 1% GEL 100 GM TUBE EXT SCH ×5 (09:29→20:46)
[2021-02-04] MEDS: INSULIN ASPART 100 UNITS/ML 3 ML PEN SC SCH ×4 (09:32→21:19)
[2021-02-04] MEDS: INSULIN GLARGINE SOLOSTAR 100 UNITS/ML 3 ML PEN SC SCH (09:32)
[2021-02-04] MEDS: ESCITALOPRAM OXALATE 20 MG TAB PO SCH (10:16)
--- NOTE | 2021-02-04 11:08 | Hospitalist Progress Note ---
Date of Service February 04, 2021 Assessment & Plan (1) Acute UTI: Plan: (1) Acute UTI: Plan: 1. Acute UTI - patient with complaint of foul smelling darker colored urine. UA suggestive of infection. She is afebrile, HD stable. She was altered on admission which quickly resolved without much intervention other than one dose of ceftriaxone-acute encephalopathy may be secondary to underlying infection. Ur cx with Proteus resis to FQs No sepsis, no fevers -completed 5 day course of Ceftriaxone 2gm IV daily 2. Hepatic encephalopathy: Patient with persistently elevated ammonia level. Ammonia =133 on admission and was altered although she improved without much intervention. Uncertain regarding medication compliance prior to arrival. Moving bowels now No need to check NH3 levels while is awake and conversive-doing well today from mental status -Continue Lactulose daily. Titrate to 2-3 soft BMs/day -Continue rifaximin 550 mg p.o. twice daily 3. Cirrhosis: Patient with liver cirrhosis secondary to STEVE, portal hypertensi on. Patient follows with gastroenterology, last seen by Dr. Toledo on 10/11/20. Patient had an EGD in June 2020 which showed no varices and mild portal- hypertensive gastropathy. Recent abdominal ultrasound with stable cirrhosis. HCV screening has been completed and is negative. AFP on 03/09/2019 = 2.6. INR =1.3. Elevation of AP and Tbili comparable to prior levels. -LFTs stable from previous Compensated at this time -Continue Lactulose -Continue Rifaximin 550 mg p.o. twice daily -Continue Pepcid 20mg po qHS - recently started by GI for complaint of nausea -Avoid hepatotoxic agents -Patient to have US in 1 year for HCC surveillance and EGD in 3 years for variceal screening. 4. Seizure disorder: Patient with history of seizure. She follows with neurology, last seen on 10/30/20 - follows for mixed tremor as well as dyskinesia and seizure history, parkinsonism. EEG completed in May 2018 revealed a generalized spike and slow wave abnormality consistent with an underlying genera lized seizure disorder. Patient had an MRI brain completed in October 2017 which was unremarkable. Patient failed VNS placement in the past, device was explanted. Presently on topiramate, Trileptal and Keppra. -Continue Ropinirole -Continue topiramate -Continue Trileptal -Continue Keppra -Continue Benztropine for EPS 5. Diabetes: Patient with type 2 diabetes, well controlled, long-term use of insulin. Last hemoglobin A1c=5.6 on 05/23/20. Patient follows with Endocrinology/Diabetes education. Last seen on 01/04/21. -Continue Lantus while here, Tresiba as outpt -ISS -Goal blood sugar 100 - 140 -Recommend annual A1c monitoring -Followup with breastfeeding educator outpatient as instructed Adrenal insufficiency - recently diagnosed at [facility] [place]. -Continue Hydrocortisone bid -Patient follows with Endocrinology - they are questioning the validity of ACTH deficiency diagnosis and are planning to repeat testing to confirm diagnosis. 6. Chronic gait disorder - patient mostly in wheelchair at home. -Fall precautions -Wheelchair and walker as needed -Assistance as needed with transfers and ambulation -Patient has home health nurse -continue home B vitamin PT/OT consults recommend rehab 7. Hypothyroidism TSH here elevated at 7.8, question compliance -Continue Synthroid home dose and repeat TFTs in 4-6 weeks 8. GERD- Chronic. Stable. -Continue Omeprazole 40mg po daily, Famotidine 40mg po daily 9. Depression - Chronic. -Continue Escitalopram -Melatonin qhs 10. Asthma - history of severe persistent asthma. She has seen Pulmonary as well as Allergy/Immunology in the past. Spirometry performed on 04/23/19 with FVC=1.37, 38% predicted. FEV1=1.18, 40% predicted and FEV1/FVC=86%. Suggestive of restrictive process vs obstruction with air trapping. Study limited. Formal PFTs ordered, not yet completed. Presently CTA, adequate oxygenation on room air, no concern for exacerbation at this time. -Continue Breo Ellipta -Continue Albuterol PRN 11. Migraine: Patient with episodic migraines. Well-controlled. -Continue topiramate -rimegepant prn for migraine relief if needed 12. Tremor: Patient with coarse postural and action tremor. -Continue topiramate 13. Osteoporosis-with h/o multiple fractures from falls -see if Forteo can be brought in from home -restart home calcium and Vit D Ppx - Low risk for DVT. Code - Full per chart review PT/OT-please see 3x/week Case Management consultation for superintendent terminal placement. This has been discussed by the PCP. Awaiting target process, [facility] is plan (2) Cirrhosis: (3) Diabetes mellitus: (4) Seizure: (5) Myoclonic seizure: (6) Hyperammonemia: (7) Parkinsonism: Admission and Anticipated Discharge Date Admission Date: January 31, 2021 Subjective Has some upper right abd pain at times, is moving bowels, declines tylenol for pain. No other complaints Review of Systems Review of Systems: All systems reviewed & are unremarkable except as noted in HPI & below Physical Exam Constitutional: WD/WN, vitals as above Eyes: + anicteric sclerae Neck: trachea midline, no thyromegaly Respiratory: normal respiratory effort, lungs clear to auscultation Cardiovascular: RRR, no murmur, no edema Chest (Breasts): Chest: normal inspection of chest Gastrointestinal (Abdomen): normal bowel sounds, soft, nontender, no hepatosplenomegaly Musculoskeletal: Extremities: extremities normal to inspection; no cyanosis and no clubbing Skin: no rashes, warm and dry Neurologic: moves all extremities and awake; no focal motor deficits Motor/Sensory: + tremor (choreiform movements of head that stop with distraction) Psychiatric: A+Ox3, euthymic affect Lymphatic: no lymphedema Results & Data Results & Data ([facility]) Vital Signs (Past 12 Hours) Vital Signs Temp Pulse Resp BP Pulse Ox 02/04/21 07:37 37.0 C 67 18 117/69 97 Laboratory Results 02/04/21 02/03/21 02/03/21 Range/Units 08:15 20:27 16:58 POC Glucose 89 239 H 199 H (70-99) mg/dl 02/03/21 Range/Units 12:15 POC Glucose 138 H (70-99) mg/dl PG Care Time/CCT Total # of Minutes Spent Total Time Spent with Patient: Total time spent is greater than 50% in coordination of care (as documented) at patient's floor/unit and/or counseling patient: Coding Level of Care Code 63739 Subseq Hosp Care Lvl 1 Diagnoses Acute UTI N39.0 Cirrhosis K74.60 Diabetes mellitus E11.9 Seizure R56.9 Myoclonic seizure G40.409 Hyperammonemia E72.20 Parkinsonism G20
[2021-02-04] MEDS: ADVANCED PROBIOTIC 1250 MG CAPSULE PO SCH (12:35)
[2021-02-04] MEDS: ZINC SULFATE 220 MG CAPSULE PO SCH (12:35)
[2021-02-04] MEDS: CEROVITE ADV FORMULA TAB PO SCH (12:36)
[2021-02-04] MEDS: VITAMIN B COMPLEX TAB PO SCH (12:36)
[2021-02-04] MEDS: MELATONIN 3 MG TAB PO SCH (20:32)
[2021-02-04] MEDS: ACETAMINOPHEN 500 MG TAB PO SCH (20:33)
[2021-02-04] MEDS: FAMOTIDINE 20 MG TAB PO SCH (20:34)
[2021-02-05] MEDS: LEVOTHYROXINE SODIUM 50 MCG TABLET PO SCH (05:37)
[2021-02-05 05:46] LABS: Hematocrit (blood only) 27.4 % (37-47); Hemoglobin 9.6 g/dL (12.0-16.0); Mean Corpuscular Hemoglobin 37.1 pg (25-34); Mean Corpuscular Volume 105.8 fL (80-100); RDW Coefficient of Variation 13.3 % (11.5-14.5); RDW Standard Deviation 50.5 fL (36.4-46.3); Red Blood Count 2.59 M/uL (4.2-5.4); White Blood Count 4.33 K/uL (4.8-10.8)
[2021-02-05 06:00] LABS: Mean Platelet Volume 9.5 fL (7.4-10.4); Platelet Count 83 K/uL (130-400)
[2021-02-05 06:12] LABS: Albumin Level 2.2 gm/dl (3.4-5.0); BUN Creatinine Ratio 24.3 (10-20); Calcium 7.6 mg/dl (8.5-10.1); Creatinine Clr Calc Pharmacy 100.3 ml/min; Est GFR (Non-African American) 104.4 ml/min; Potassium 4.1 mmol/L (3.5-5.1)
[2021-02-05 06:14] LABS: Albumin Globulin Ratio 0.8 (0.9-2); Bilirubin,Total 0.8 mg/dl (0.2-1); Globulin 2.9 gm/dl (2.5-4.0); Total Protein 5.1 gm/dl (6.4-8.2)
[2021-02-05 06:29] LABS: Basophils # (auto) 0.04 K/uL (0-0.2); Basophils % (auto) 0.9 %; Eosinophils # (auto) 0.14 K/uL (0-0.5); Eosinophils % (auto) 3.2 %; Immature Granulocytes # (auto) 0.01 K/uL (0.00-0.02); Immature Granulocytes % (auto) 0.2 %; Lymphocytes # (auto) 1.38 K/uL (1.2-3.4); Lymphocytes % (auto) 31.9 %; Monocytes # (auto) 0.37 K/uL (0.11-0.59); Monocytes % (auto) 8.5 %; Neutrophils # (auto) 2.39 K/uL (1.4-6.5); Neutrophils % (auto) 55.3 %
[2021-02-05] MEDS: BENZTROPINE MESYLATE 1 MG TAB PO SCH ×3 (08:05→21:30)
[2021-02-05] MEDS: ASCORBIC ACID 500 MG TAB PO SCH (08:05)
[2021-02-05] MEDS: CALCIUM CARBONATE 1250MG TAB PO SCH (08:05)
[2021-02-05] MEDS: CHOLECALCIFEROL 1,000 UNITS 25 MCG TAB PO SCH (08:06)
[2021-02-05] MEDS: LACTULOSE SYRUP 20 GM/30 ML UDC PO SCH ×3 (08:07→21:30)
[2021-02-05] MEDS: HYDROCORTISONE 10 MG TAB PO SCH ×3 (08:07→18:11)
[2021-02-05] MEDS: FEXOFENADINE 60 MG TAB PO SCH (08:07)
[2021-02-05] MEDS: ESCITALOPRAM OXALATE 20 MG TAB PO SCH (08:07)
[2021-02-05] MEDS: levETIRAcetam 500 MG TAB PO SCH ×2 (08:08→21:31)
[2021-02-05] MEDS: MAGNESIUM OXIDE 400 MG TAB PO SCH ×2 (08:08→21:28)
[2021-02-05] MEDS: OXcarbazepine 150 MG TABLET PO SCH ×2 (08:09→21:28)
[2021-02-05] MEDS: PRAVASTATIN SOD 20 MG TAB PO SCH (08:09)
[2021-02-05] MEDS: TOPIRAMATE 100 MG TAB PO SCH ×2 (08:10→21:29)
[2021-02-05] MEDS: rOPINIRole HCL 0.25 MG TABLET PO SCH ×2 (08:10→21:29)
[2021-02-05] MEDS: rifAXIMin 550 MG TABLET PO SCH ×2 (08:10→21:27)
[2021-02-05] MEDS: DICLOFENAC SOD 1% GEL 100 GM TUBE EXT SCH ×4 (08:18→21:39)
[2021-02-05] MEDS: INSULIN GLARGINE SOLOSTAR 100 UNITS/ML 3 ML PEN SC SCH (08:24)
[2021-02-05] MEDS: INSULIN ASPART 100 UNITS/ML 3 ML PEN SC SCH ×4 (09:49→21:11)
[2021-02-05] MEDS: CEROVITE ADV FORMULA TAB PO SCH (13:48)
[2021-02-05] MEDS: ADVANCED PROBIOTIC 1250 MG CAPSULE PO SCH (13:48)
[2021-02-05] MEDS: ZINC SULFATE 220 MG CAPSULE PO SCH (13:49)
[2021-02-05] MEDS: VITAMIN B COMPLEX TAB PO SCH (13:49)
--- NOTE | 2021-02-05 18:44 | Hospitalist Progress Note ---
Date of Service February 05, 2021 Assessment & Plan (1) Acute UTI: Plan: 1. Acute UTI - patient with complaint of foul smelling darker colored urine. UA suggestive of infection. She is afebrile, HD stable. She was altered on admission which quickly resolved without much intervention other than one dose of ceftriaxone-acute encephalopathy may be secondary to underlying infection. Ur cx with Proteus resis to FQs No sepsis, no fevers -completed 5 day course of Ceftriaxone 2gm IV daily 2. Hepatic encephalopathy: Patient with persistently elevated ammonia level. Ammonia =133 on admission and was altered although she improved without much intervention. Uncertain regarding medication compliance prior to arrival. Moving bowels now No need to check NH3 levels while is awake and conversive-doing well today from mental status -Continue Lactulose daily. Titrate to 2-3 soft BMs/day -Continue rifaximin 550 mg p.o. twice daily 3. Cirrhosis: Patient with liver cirrhosis secondary to STEVE, portal hypertension. Patient follows with gastroenterology, last seen by Dr. Toledo on 10/11/20. Patient had an EGD in June 2020 which showed no varices and mild portal-hypertensive gastropathy. Recent abdominal ultrasound with stable cirrhosis. HCV screening has been completed and is negative. AFP on 03/09/2019 = 2.6. INR =1.3. Elevation of AP and Tbili comparable to prior levels. -LFTs stable from previous Compensated at this time -Continue Lactulose -Continue Rifaximin 550 mg p.o. twice daily -Continue Pepcid 20mg po qHS - recently started by GI for complaint of nausea -Avoid hepatotoxic agents -Patient to have US in 1 year for HCC surveillance and EGD in 3 years for variceal screening. 4. Seizure disorder: Patient with history of seizure. She follows with neurology, last seen on 10/30/20 - follows for mixed tremor as well as dyskinesia and seizure history, parkinsonism. EEG completed in May 2018 revealed a generalized spike and slow wave abnormality consistent with an underlying generalized seizure disorder. Patient had an MRI brain completed in October 2017 which was unremarkable. Patient failed VNS placement in the past, device was explanted. Presently on topiramate, Trileptal and Keppra. reports no seizure x 1 year -Continue Ropinirole -Continue topiramate -Continue Trileptal -Continue Keppra -Continue Benztropine for EPS 5. Diabetes: Patient with type 2 diabetes, well controlled, long-term use of insulin. Last hemoglobin A1c=5.6 on 05/23/20. Patient follows with Endocrinology/Diabetes education. Last seen on 01/04/21. -Continue Lantus while here, Tresiba as outpt -ISS -Goal blood sugar 100 - 140 -Recommend annual A1c monitoring -Followup with clinical document improvement educator outpatient as instructed Adrenal insufficiency - recently diagnosed at [facility] [place]. -Continue Hydrocortisone bid -Patient follows with Endocrinology - they are questioning the validity of ACTH deficiency diagnosis and are planning to repeat testing to confirm diagnosis. 6. Chronic gait disorder - patient mostly in wheelchair at home. -Fall precautions -Wheelchair and walker as needed -Assistance as needed with transfers and ambulation -Patient has home health nurse -continue home B vitamin PT/OT consults recommend rehab 7. Hypothyroidism TSH here elevated at 7.8, question compliance -Continue Synthroid home dose and repeat TFTs in 4-6 weeks 8. GERD- Chronic. Stable. -Continue Omeprazole 40mg po daily, Famotidine 40mg po daily 9. Depression - Chronic. -Continue Escitalopram -Melatonin qhs 10. Asthma - history of severe persistent asthma. She has seen Pulmonary as well as Allergy/Immunology in the past. Spirometry performed on 04/23/19 with FVC=1.37, 38% predicted. FEV1=1.18, 40% predicted and FEV1/FVC=86%. Suggestive of restrictive process vs obstruction with air trapping. Study limited. Formal PFTs ordered, not yet completed. Presently CTA, adequate oxygenation on room air, no concern for exacerbation at this time. -Continue Breo Ellipta -Continue Albuterol PRN 11. Migraine: Patient with episodic migraines. Well-controlled. -Continue topiramate -rimegepant prn for migraine relief if needed 12. Tremor: Patient with coarse postural and action tremor. -Continue topiramate 13. Osteoporosis-with h/o multiple fractures from falls -see if Forteo can be brought in from home -restart home calcium and Vit D Ppx - Low risk for DVT. Code - Full per chart review PT/OT-please see 3x/week Case Management consultation for supervisor intermediates placement. This has been discussed by the PCP. Awaiting target process and bed availability. Would be stable for D/C pending arrangements - Updated at bedside. (2) Cirrhosis: (3) Diabetes mellitus: (4) Seizure: (5) Myoclonic seizure: (6) Hyperammonemia: (7) Parkinsonism: Admission and Anticipated Discharge Date Admission Date: January 31, 2021 Subjective Reports feeling well today. Verbalizes no complaints. Tolerating a diet. Just really wants to go home however is no longer able to appropriately care for her Review of Systems Review of Systems: REVIEW OF SYSTEMS General/Constitutional: Denies fever/chills ENT: Denies sore throat, trouble swallowing Cardiovascular: Denies chest pain, palpitations, edema Respiratory: Denies cough, SOB GI: Denies nausea, vomiting, abdominal pain, constipation, diarrhea : Denies dysuria Musculoskeletal: Denies joint/muscle aches Neurologic: Denies dizziness/lightheadedness Physical Exam Physical Exam: PHYSICAL EXAM General Appearance: WDWN in NAD who is A&O x 3 HEENT: Head is normocephalic/atraumatic; Hearing grossly intact; anicteric sclera; Mucous membranes moist; dentures with poor fit Neck: Supple; Trachea midline; Neg JVD Heart: RRR with no M/G/R Lungs: CTA in all lung dyer bilaterally; Respirations unlabored; Neg accessory muscle use Abdomen: Soft, non-tender, non-distended; Positive BS x 4 quadrants; Neg organomegaly Extremities: Neg cyanosis or edema Neurological: Speech clear; Gross motor/sensory function intact; Neg focal neurologic deficits; +tremor; +choreiform movements of head Psychiatric: Appropriate mood/affect Skin: Normal Color; Warm/Dry Results & Data Results & Data ([facility]) Vital Signs (Past 12 Hours) Vital Signs Temp Pulse Resp BP Pulse Ox 02/05/21 15:25 36.6 C 76 16 135/80 95 02/05/21 07:31 36.8 C 62 16 122/66 97 PG Care Time/CCT Total # of Minutes Spent Total Time Spent with Patient: Total time spent is greater than 50% in coordination of care (as documented) at patient's floor/unit and/or counseling patient: Coding Level of Care Code 95675 Subseq Hosp Care Lvl 3 Diagnoses Acute UTI N39.0 Cirrhosis K74.60 Diabetes mellitus E11.9 Seizure R56.9 Myoclonic seizure G40.409 Hyperammonemia E72.20 Parkinsonism G20
[2021-02-05] MEDS: MELATONIN 3 MG TAB PO SCH (21:23)
[2021-02-05] MEDS: ACETAMINOPHEN 500 MG TAB PO SCH (21:24)
[2021-02-05] MEDS: FAMOTIDINE 20 MG TAB PO SCH (21:28)
[2021-02-06] MEDS: LEVOTHYROXINE SODIUM 50 MCG TABLET PO SCH (06:27)
[2021-02-06] MEDS: HEPARIN 100 UNIT/ML 5ML FLUSH FLUSH PRN (08:13)
[2021-02-06] MEDS: INSULIN ASPART 100 UNITS/ML 3 ML PEN SC SCH ×4 (09:45→20:54)
[2021-02-06] MEDS: LACTULOSE SYRUP 20 GM/30 ML UDC PO SCH ×3 (09:47→20:18)
[2021-02-06] MEDS: OXcarbazepine 150 MG TABLET PO SCH ×2 (09:47→20:12)
[2021-02-06] MEDS: CALCIUM CARBONATE 1250MG TAB PO SCH (09:47)
[2021-02-06] MEDS: BENZTROPINE MESYLATE 1 MG TAB PO SCH ×3 (09:48→20:12)
[2021-02-06] MEDS: FEXOFENADINE 60 MG TAB PO SCH (09:48)
[2021-02-06] MEDS: TOPIRAMATE 100 MG TAB PO SCH ×2 (09:48→20:09)
[2021-02-06] MEDS: ESCITALOPRAM OXALATE 20 MG TAB PO SCH (09:48)
[2021-02-06] MEDS: levETIRAcetam 500 MG TAB PO SCH ×2 (09:48→20:11)
[2021-02-06] MEDS: PRAVASTATIN SOD 20 MG TAB PO SCH (09:49)
[2021-02-06] MEDS: rifAXIMin 550 MG TABLET PO SCH ×2 (09:49→20:10)
[2021-02-06] MEDS: MAGNESIUM OXIDE 400 MG TAB PO SCH ×2 (09:49→20:10)
[2021-02-06] MEDS: ASCORBIC ACID 500 MG TAB PO SCH (09:49)
[2021-02-06] MEDS: rOPINIRole HCL 0.25 MG TABLET PO SCH ×2 (09:49→20:12)
[2021-02-06] MEDS: CHOLECALCIFEROL 1,000 UNITS 25 MCG TAB PO SCH (09:49)
[2021-02-06] MEDS: DICLOFENAC SOD 1% GEL 100 GM TUBE EXT SCH ×4 (09:50→20:04)
[2021-02-06] MEDS: INSULIN GLARGINE SOLOSTAR 100 UNITS/ML 3 ML PEN SC SCH (09:50)
--- NOTE | 2021-02-06 11:03 | Hospitalist Progress Note ---
Date of Service February 06, 2021 Assessment & Plan (1) Acute UTI: Plan: 1. Acute UTI - patient with complaint of foul smelling darker colored urine. UA suggestive of infection. She is afebrile, HD stable. She was altered on admission which quickly resolved without much intervention other than one dose of ceftriaxone-acute encephalopathy may be secondary to underlying infection. Ur cx with Proteus resis to FQs No sepsis, no fevers -completed 5 day course of Ceftriaxone 2gm IV daily 2. Hepatic encephalopathy: Patient with persistently elevated ammonia level. Ammonia =133 on admission and was altered although she improved without much intervention. Uncertain regarding medication compliance prior to arrival. Moving bowels now No need to check NH3 levels while is awake and conversive-doing well today from mental status -Continue Lactulose daily. Titrate to 2-3 soft BMs/day -Continue rifaximin 550 mg p.o. twice daily 3. Cirrhosis: Patient with liver cirrhosis secondary to STEVE, portal hypertension. Patient follows with gastroenterology, last seen by Dr. Toledo on 10/11/20. Patient had an EGD in June 2020 which showed no varices and mild portal-hypertensive gastropathy. Recent abdominal ultrasound with stable cirrhosis. HCV screening has been completed and is negative. AFP on 03/09/2019 = 2.6. INR =1.3. Elevation of AP and Tbili comparable to prior levels. -LFTs stable from previous Compensated at this time -Continue Lactulose -Continue Rifaximin 550 mg p.o. twice daily -Continue Pepcid 20mg po qHS - recently started by GI for complaint of nausea -Avoid hepatotoxic agents -Patient to have US in 1 year for HCC surveillance and EGD in 3 years for variceal screening. 4. Seizure disorder: Patient with history of seizure. She follows with neurology, last seen on 10/30/20 - follows for mixed tremor as well as dyskinesia and seizure history, parkinsonism. EEG completed in May 2018 revealed a generalized spike and slow wave abnormality consistent with an underlying generalized seizure disorder. Patient had an MRI brain completed in October 2017 which was unremarkable. Patient failed VNS placement in the past, device was explanted. Presently on topiramate, Trileptal and Keppra. reports no seizure x 1 year -Continue Ropinirole -Continue topiramate -Continue Trileptal -Continue Keppra -Continue Benztropine for EPS 5. Diabetes: Patient with type 2 diabetes, well controlled, long-term use of insulin. Last hemoglobin A1c=5.6 on 05/23/20. Patient follows with Endocrinology/Diabetes education. Last seen on 01/04/21. -Continue Lantus while here, Tresiba as outpt -ISS -Goal blood sugar 100 - 140 -Recommend annual A1c monitoring -Followup with special weapons and tactics officer outpatient as instructed Adrenal insufficiency - recently diagnosed at [facility] [place]. -Continue Hydrocortisone bid -Patient follows with Endocrinology - they are questioning the validity of ACTH deficiency diagnosis and are planning to repeat testing to confirm diagnosis. 6. Chronic gait disorder - patient mostly in wheelchair at home. -Fall precautions -Wheelchair and walker as needed -Assistance as needed with transfers and ambulation -Patient has home health nurse -continue home B vitamin PT/OT consults recommend rehab 7. Hypothyroidism TSH here elevated at 7.8, question compliance -Continue Synthroid home dose and repeat TFTs in 4-6 weeks 8. Depression - Chronic. -Continue Escitalopram -Melatonin qhs 10. Asthma - history of severe persistent asthma. She has seen Pulmonary as well as Allergy/Immunology in the past. Spirometry performed on 04/23/19 with FVC=1.37, 38% predicted. FEV1=1.18, 40% predicted and FEV1/FVC=86%. Suggestive of restrictive process vs obstruction with air trapping. Study limited. Formal PFTs ordered, not yet completed. Presently CTA, adequate oxygenation on room air, no concern for exacerbation at this time. -Continue Breo Ellipta -Continue Albuterol PRN 11. Migraine: Patient with episodic migraines. Well-controlled. -Continue topiramate -rimegepant prn for migraine relief if needed 12. Tremor: Patient with coarse postural and action tremor. -Continue topiramate 13. Osteoporosis-with h/o multiple fractures from falls -see if Forteo can be brought in from home -restart home calcium and Vit D Ppx - Low risk for DVT. Code - Full PT/OT-please see 3x/week Case Management consultation for long filler cigar roller machine placement. This has been discussed by the PCP. Awaiting target process and bed availability. Would be stable for D/C pending arrangements - Updated at bedside on 02/06 (2) Cirrhosis: (3) Diabetes mellitus: (4) Seizure: (5) Myoclonic seizure: (6) Hyperammonemia: (7) Parkinsonism: Admission and Anticipated Discharge Date Admission Date: January 31, 2021 Subjective Reports doing well today. Did have some elevated glucose readings overnight. Denies pain. Tolerating a diet. States she feels like her arms and legs are swollen however no edema noted and oral mucosa is slightly dry. Just asking for [place] ice Review of Systems Review of Systems: REVIEW OF SYSTEMS General/Constitutional: Denies fever/chills Cardiovascular: Denies chest pain, palpitations, edema Respiratory: Denies cough, SOB GI: Denies nausea, vomiting, abdominal pain, constipation, diarrhea : Denies dysuria Musculoskeletal: Denies joint/muscle aches Neurologic: Denies dizziness/lightheadedness Physical Exam Physical Exam: PHYSICAL EXAM General Appearance: Frail; in NAD who is A&O x 3 HEENT: Head is normocephalic/atraumatic; Hearing grossly intact; anicteric sclera; Mucous membranes slightly Neck: Supple; Trachea midline; Neg JVD Heart: RRR with no M/G/R Lungs: CTA in all lung dyer bilaterally; Respirations unlabored; Neg accessory muscle use Abdomen: Soft, non-tender, non-distended; Positive BS x 4 quadrants Extremities: Neg cyanosis or edema; no edema of the lower extremities; some contractures of bilateral fingers Neurological: Speech clear; Gross motor/sensory function intact; Neg focal neurologic deficits; +tremor; +choreiform movements of head (doesn't seem to be present when not in the room but starts when entering) Psychiatric: Appropriate mood/affect Skin: Normal Color; Warm/Dry Results & Data Results & Data ([facility]) Vital Signs (Past 12 Hours) Vital Signs Temp Pulse Resp BP BP Pulse Ox 02/06/21 07:29 36.7 C 59 L 16 120/66 98 02/05/21 23:16 36.4 C L 64 20 131/75 96 PG Care Time/CCT Total # of Minutes Spent Total Time Spent with Patient: Total time spent is greater than 50% in coordination of care (as documented) at patient's floor/unit and/or counseling patient: Coding Level of Care Code 96477 Subseq Hosp Care Lvl 2 Diagnoses Acute UTI N39.0 Cirrhosis K74.60 Diabetes mellitus E11.9 Seizure R56.9 Myoclonic seizure G40.409 Hyperammonemia E72.20 Parkinsonism G20
[2021-02-06] MEDS: ZINC SULFATE 220 MG CAPSULE PO SCH (13:09)
[2021-02-06] MEDS: ADVANCED PROBIOTIC 1250 MG CAPSULE PO SCH (13:09)
[2021-02-06] MEDS: VITAMIN B COMPLEX TAB PO SCH (13:10)
[2021-02-06] MEDS: CEROVITE ADV FORMULA TAB PO SCH (13:10)
[2021-02-06] MEDS: HYDROCORTISONE 10 MG TAB PO SCH (15:45)
[2021-02-06] MEDS: ACETAMINOPHEN 500 MG TAB PO SCH (20:09)
[2021-02-06] MEDS: FAMOTIDINE 20 MG TAB PO SCH (20:18)
[2021-02-06] MEDS: MELATONIN 3 MG TAB PO SCH (20:18)
[2021-02-07] MEDS: LEVOTHYROXINE SODIUM 50 MCG TABLET PO SCH (04:46)
[2021-02-07] MEDS: INSULIN ASPART 100 UNITS/ML 3 ML PEN SC SCH ×4 (09:38→21:22)
[2021-02-07] MEDS: rifAXIMin 550 MG TABLET PO SCH ×2 (10:37→21:19)
[2021-02-07] MEDS: CHOLECALCIFEROL 1,000 UNITS 25 MCG TAB PO SCH (10:37)
[2021-02-07] MEDS: rOPINIRole HCL 0.25 MG TABLET PO SCH ×2 (10:37→21:18)
[2021-02-07] MEDS: OXcarbazepine 150 MG TABLET PO SCH ×2 (10:37→21:18)
[2021-02-07] MEDS: MAGNESIUM OXIDE 400 MG TAB PO SCH ×2 (10:37→21:19)
[2021-02-07] MEDS: PRAVASTATIN SOD 20 MG TAB PO SCH (10:37)
[2021-02-07] MEDS: BENZTROPINE MESYLATE 1 MG TAB PO SCH ×3 (10:38→21:18)
[2021-02-07] MEDS: FEXOFENADINE 60 MG TAB PO SCH (10:38)
[2021-02-07] MEDS: ASCORBIC ACID 500 MG TAB PO SCH (10:38)
[2021-02-07] MEDS: HYDROCORTISONE 10 MG TAB PO SCH ×2 (10:38→15:24)
[2021-02-07] MEDS: levETIRAcetam 500 MG TAB PO SCH ×2 (10:38→21:20)
[2021-02-07] MEDS: ESCITALOPRAM OXALATE 20 MG TAB PO SCH (10:38)
[2021-02-07] MEDS: TOPIRAMATE 100 MG TAB PO SCH ×2 (10:39→21:20)
[2021-02-07] MEDS: CALCIUM CARBONATE 1250MG TAB PO SCH (10:39)
[2021-02-07] MEDS: INSULIN GLARGINE SOLOSTAR 100 UNITS/ML 3 ML PEN SC SCH (10:45)
[2021-02-07] MEDS: LACTULOSE SYRUP 20 GM/30 ML UDC PO SCH ×3 (10:51→21:17)
[2021-02-07] MEDS: DICLOFENAC SOD 1% GEL 100 GM TUBE EXT SCH ×4 (10:52→21:21)
[2021-02-07] MEDS: CEROVITE ADV FORMULA TAB PO SCH (12:20)
[2021-02-07] MEDS: VITAMIN B COMPLEX TAB PO SCH (12:20)
[2021-02-07] MEDS: ADVANCED PROBIOTIC 1250 MG CAPSULE PO SCH (12:20)
[2021-02-07] MEDS: ZINC SULFATE 220 MG CAPSULE PO SCH (12:20)
--- NOTE | 2021-02-07 12:42 | Hospitalist Progress Note ---
Date of Service February 07, 2021 Assessment & Plan (1) Acute UTI: Plan: 1. Acute UTI - patient with complaint of foul smelling darker colored urine. UA suggestive of infection. She is afebrile, HD stable. She was altered on admission which quickly resolved without much intervention other than one dose of ceftriaxone-acute encephalopathy may be secondary to underlying infection. Ur cx with Proteus resis to FQs No sepsis, no fevers -completed 5 day course of Ceftriaxone 2gm IV daily 2. Hepatic encephalopathy: Patient with persistently elevated ammonia level. Ammonia =133 on admission and was altered although she improved without much intervention. Uncertain regarding medication compliance prior to arrival. Moving bowels now No need to check NH3 levels while is awake and conversive-doing well today from mental status -Continue Lactulose daily. Titrate to 2-3 soft BMs/day -Continue rifaximin 550 mg p.o. twice daily 3. Cirrhosis: Patient with liver cirrhosis secondary to STEVE, portal hypertension. Patient follows with gastroenterology, last seen by Dr. Toledo on 10/11/20. Patient had an EGD in June 2020 which showed no varices and mild portal-hypertensive gastropathy. Recent abdominal ultrasound with stable cirrhosis. HCV screening has been completed and is negative. AFP on 03/09/2019 = 2.6. INR =1.3. Elevation of AP and Tbili comparable to prior levels. -LFTs stable from previous Compensated at this time -Continue Lactulose -Continue Rifaximin 550 mg p.o. twice daily -Continue Pepcid 20mg po qHS - recently started by GI for complaint of nausea -Avoid hepatotoxic agents -Patient to have US in 1 year for HCC surveillance and EGD in 3 years for variceal screening. 4. Seizure disorder: Patient with history of seizure. She follows with neurology, last seen on 10/30/20 - follows for mixed tremor as well as dyskinesia and seizure history, parkinsonism. EEG completed in May 2018 revealed a generalized spike and slow wave abnormality consistent with an underlying generalized seizure disorder. Patient had an MRI brain completed in October 2017 which was unremarkable. Patient failed VNS placement in the past, device was explanted. Presently on topiramate, Trileptal and Keppra. reports no seizure x 1 year -Continue Ropinirole -Continue topiramate -Continue Trileptal -Continue Keppra -Continue Benztropine for EPS 5. Diabetes: Patient with type 2 diabetes, well controlled, long-term use of insulin. Last hemoglobin A1c=5.6 on 05/23/20. Patient follows with Endocrinology/Diabetes education. Last seen on 01/04/21. -Continue Lantus while here, Tresiba as outpt -ISS -Goal blood sugar 100 - 140 -Recommend annual A1c monitoring -Followup with ict educator outpatient as instructed Adrenal insufficiency - [place] [facility] [place]Continue Hydrocortisone bid -Patient follows with Endocrinology - they are questioning the validity of ACTH deficiency diagnosis and are planning to repeat testing to confirm diagnosis. 6. Chronic gait disorder - patient mostly in wheelchair at home. -Fall precautions -Wheelchair and walker as needed -Assistance as needed with transfers and ambulation -Patient has home health nurse -continue home B vitamin PT/OT consults recommend rehab 7. Hypothyroidism TSH here elevated at 7.8, question compliance -Continue Synthroid home dose and repeat TFTs in 4-6 weeks 8. Depression - Chronic. - Asked her nurse on 02/07 about seeing for a 3S admission - had a long conversation with her and she does not thing her depression is worse then its usual and she has had this since she was a kid. She states some days are better than others but not worse then her baseline. She does agree she has a lot of stressors with her own health, 's health, and the process of being placed into halfway care. She denies suicidal ideations/thoughts/plans. She also stated she feels the lemon [place] ice will help her feel better -- Will continue to monitor but no acute changes in regards to her BH conditions. Will continue to readdress this with her -Continue Escitalopram -Melatonin qhs 9. Asthma - history of severe persistent asthma. She has seen Pulmonary as well as Allergy/Immunology in the past. Spirometry performed on 04/23/19 with FVC=1.37, 38% predicted. FEV1=1.18, 40% predicted and FEV1/FVC=86%. Suggestive of restrictive process vs obstruction with air trapping. Study limited. Formal PFTs ordered, not yet completed. Presently CTA, adequate oxygenation on room air, no concern for exacerbation at this time. -Continue Breo Ellipta -Continue Albuterol PRN 10. Migraine: Patient with episodic migraines. Well-controlled. -Continue topiramate -rimegepant prn for migraine relief if needed 11. Tremor: Patient with coarse postural and action tremor. -Continue topiramate 12. Osteoporosis-with h/o multiple fractures from falls -see if [place] can be brought in from home -restart home calcium and Vit D Ppx - Low risk for DVT. Code - Full PT/OT-please see 3x/week Case Management consultation for manager long term care placement. This has been discussed by the PCP. Awaiting target process and bed availability. Would be stable for D/C pending arrangements - Updated at bedside on 02/06 (2) Cirrhosis: (3) Diabetes mellitus: (4) Seizure: (5) Myoclonic seizure: (6) Hyperammonemia: (7) Parkinsonism: Admission and Anticipated Discharge Date Admission Date: January 31, 2021 Subjective Reports doing well overall. Told her nurse she may need a 3S admission. Had a long conversation with her at bedside. States she has had longstanding issues with depression and doesn't feel like it is worse just comes and goes. She isn't sure how long she has been on her current Lexapro. States she follows with Lisa Barrera from [employer]. Specifically asked her if she has any suicidal ideations, thoughts, plans and she denies this. She then stated "lemon rw[place] ice is my favorite and would probably help". Review of Systems Review of Systems: REVIEW OF SYSTEMS General/Constitutional: Denies fever/chills Cardiovascular: Denies chest pain, palpitations, edema Respiratory: Denies cough, SOB GI: Denies nausea, vomiting, abdominal pain, constipation, diarrhea : Denies dysuria Musculoskeletal: Denies joint/muscle aches Neurologic: Denies dizziness/lightheadedness Psych: + chronic depression; Denies suicidal ideations/thoughts/plans of self harm Physical Exam Physical Exam: PHYSICAL EXAM General Appearance: Frail; in NAD who is A&O x 3 HEENT: Head is normocephalic/atraumatic; Hearing grossly intact; anicteric sclera; Mucous membranes slightly Neck: Supple; Trachea midline; Neg JVD Heart: RRR with no M/G/R Lungs: CTA in all lung dyer bilaterally; Respirations unlabored; Neg accessory muscle use Abdomen: Soft, non-tender, non-distended; Positive BS x 4 quadrants Extremities: Neg cyanosis or edema; no edema of the lower extremities; some contractures of bilateral fingers Neurological: Speech clear; Gross motor/sensory function intact; Neg focal neurologic deficits; +tremor; +choreiform movements of head (doesn't seem to be present when not in the room but starts when entering) Psychiatric: Appropriate mood/affect Skin: Normal Color; Warm/Dry Results & Data Results & Data ([facility]) Vital Signs (Past 12 Hours) Vital Signs Temp Pulse Resp BP BP Pulse Ox 02/07/21 07:37 36.5 C 70 16 106/45 L 95 02/07/21 06:16 110/67 PG Care Time/CCT Total # of Minutes Spent Total Time Spent with Patient: Total time spent is greater than 50% in coordination of care (as documented) at patient's floor/unit and/or counseling patient: Coding Level of Care Code 49363 Subseq Hosp Care Lvl 3 Diagnoses Acute UTI N39.0 Cirrhosis K74.60 Diabetes mellitus E11.9 Seizure R56.9 Myoclonic seizure G40.409 Hyperammonemia E72.20 Parkinsonism G20
[2021-02-07] MEDS: FAMOTIDINE 20 MG TAB PO SCH (21:19)
[2021-02-07] MEDS: ACETAMINOPHEN 500 MG TAB PO SCH (21:20)
[2021-02-07] MEDS: MELATONIN 3 MG TAB PO SCH (21:21)
[2021-02-08] MEDS: LEVOTHYROXINE SODIUM 50 MCG TABLET PO SCH (04:56)
[2021-02-08] MEDS: PROMETHAZINE HCL 25 MG TAB PO PRN (06:01)
[2021-02-08] MEDS: DICLOFENAC SOD 1% GEL 100 GM TUBE EXT SCH ×4 (07:40→21:23)
[2021-02-08] MEDS: CHOLECALCIFEROL 1,000 UNITS 25 MCG TAB PO SCH (07:41)
[2021-02-08] MEDS: LACTULOSE SYRUP 20 GM/30 ML UDC PO SCH ×3 (07:41→21:23)
[2021-02-08] MEDS: TOPIRAMATE 100 MG TAB PO SCH ×2 (07:41→21:11)
[2021-02-08] MEDS: VITAMIN B COMPLEX TAB PO SCH (07:41)
[2021-02-08] MEDS: ZINC SULFATE 220 MG CAPSULE PO SCH (07:41)
[2021-02-08] MEDS: ADVANCED PROBIOTIC 1250 MG CAPSULE PO SCH (07:41)
[2021-02-08] MEDS: rOPINIRole HCL 0.25 MG TABLET PO SCH ×2 (07:41→21:13)
[2021-02-08] MEDS: rifAXIMin 550 MG TABLET PO SCH ×2 (07:42→21:12)
[2021-02-08] MEDS: MAGNESIUM OXIDE 400 MG TAB PO SCH ×2 (07:42→21:13)
[2021-02-08] MEDS: OXcarbazepine 150 MG TABLET PO SCH ×2 (07:42→21:10)
[2021-02-08] MEDS: PRAVASTATIN SOD 20 MG TAB PO SCH (07:42)
[2021-02-08] MEDS: ASCORBIC ACID 500 MG TAB PO SCH (07:42)
[2021-02-08] MEDS: CEROVITE ADV FORMULA TAB PO SCH (07:42)
[2021-02-08] MEDS: CALCIUM CARBONATE 1250MG TAB PO SCH (07:43)
[2021-02-08] MEDS: BENZTROPINE MESYLATE 1 MG TAB PO SCH ×3 (07:43→21:11)
[2021-02-08] MEDS: FEXOFENADINE 60 MG TAB PO SCH (07:43)
[2021-02-08] MEDS: ESCITALOPRAM OXALATE 20 MG TAB PO SCH (07:43)
[2021-02-08] MEDS: levETIRAcetam 500 MG TAB PO SCH ×2 (07:43→21:10)
[2021-02-08] MEDS: HYDROCORTISONE 10 MG TAB PO SCH ×2 (07:43→15:13)
[2021-02-08] MEDS: INSULIN ASPART 100 UNITS/ML 3 ML PEN SC SCH ×4 (08:38→21:14)
[2021-02-08] MEDS: INSULIN GLARGINE SOLOSTAR 100 UNITS/ML 3 ML PEN SC SCH (08:39)
--- NOTE | 2021-02-08 12:26 | Hospitalist Progress Note ---
Date of Service February 08, 2021 Assessment & Plan (1) Acute UTI: Plan: 1. Acute UTI - patient with complaint of foul smelling darker colored urine. UA suggestive of infection. She is afebrile, HD stable. She was altered on admission which quickly resolved without much intervention other than one dose of ceftriaxone-acute encephalopathy may be secondary to underlying infection. Ur cx with Proteus resistance to FQs No sepsis, no fevers -completed 5 day course of Ceftriaxone 2gm IV daily 2. Hepatic encephalopathy: Patient with persistently elevated ammonia level. Ammonia =133 on admission and was altered although she improved without much intervention. Uncertain regarding medication compliance prior to arrival. Moving bowels now No need to check NH3 levels while is awake and conversive-doing well today from mental status -Continue Lactulose daily. Titrate to 2-3 soft BMs/day -Continue rifaximin 550 mg p.o. twice daily 3. Cirrhosis: Patient with liver cirrhosis secondary to STEVE, portal hyper tension. Patient follows with gastroenterology, last seen by Dr. Toledo on 10/11/20. Patient had an EGD in June 2020 which showed no varices and mild portal-hypertensive gastropathy. Recent abdominal ultrasound with stable cirrhosis. HCV screening has been completed and is negative. AFP on 03/09/2019 = 2.6. INR =1.3. Elevation of AP and Tbili comparable to prior levels. -LFTs stable from previous Compensated at this time -Continue Lactulose -Continue Rifaximin 550 mg p.o. twice daily -Continue Pepcid 20mg po qHS - recently started by GI for complaint of nausea -Avoid hepatotoxic agents -Patient to have US in 1 year for HCC surveillance and EGD in 3 years for variceal screening. 4. Seizure disorder: Patient with history of seizure. She follows with neurology, last seen on 10/30/20 - follows for mixed tremor as well as dyskinesia and seizure history, parkinsonism. EEG completed in May 2018 revealed a generalized spike and slow wave abnormality consistent with an underlying g eneralized seizure disorder. Patient had an MRI brain completed in October 2017 which was unremarkable. Patient failed VNS placement in the past, device was explanted. Presently on topiramate, Trileptal and Keppra. reports no seizure x 1 year or greater -Continue Ropinirole -Continue topiramate -Continue Trileptal -Continue Keppra -Continue Benztropine for EPS 5. Diabetes: Patient with type 2 diabetes, well controlled, long-term use of insulin. Last hemoglobin A1c=5.6 on 05/23/20. Patient follows with Endocrinology/Diabetes education. Last seen on 01/04/21. -Continue Lantus while here, Tresiba as outpt -ISS -Goal blood sugar 100 - 140 -Recommend annual A1c monitoring -Followup with yardage control clerk outpatient as instructed Adrenal insufficiency - [place] [facility] [place] -Continue Hydrocortisone bid -Patient follows with Endocrinology - they are questioning the validity of ACTH deficiency diagnosis and are planning to repeat testing to confirm diagnosis. 6. Chronic gait disorder - patient mostly in wheelchair at home. -Fall precautions -Wheelchair and walker as needed -Assistance as needed with transfers and ambulation -Patient has home health nurse -continue home B vitamin PT/OT consults recommend rehab 7. Hypothyroidism TSH here elevated at 7.8, question compliance -Continue Synthroid home dose and repeat TFTs in 4-6 weeks 8. Depression - Chronic. - Asked her nurse on 02/07 about needing a 3S admission - had a long conversation with her on 02/07 and she does not think her depression is worse than its usual and she has had this since she was a kid. She states some days are better than others but not worse then her baseline. She does agree she has a lot of stressors with her own health, 's health, and the process of being placed into long-term care. She denies suicidal ideations/thoughts/plans. She also stated she feels the lemon [place] ice will help her feel better... -- Will continue to monitor but no acute changes in regards to her BH conditions. Will continue to readdress this with her -Continue Escitalopram -Melatonin qhs 9. Asthma - history of severe persistent asthma. She has seen Pulmonary as well as Allergy/Immunology in the past. Spirometry performed on 04/23/19 with FVC=1.37, 38% predicted. FEV1=1.18, 40% predicted and FEV1/FVC=86%. Suggestive of restrictive process vs obstruction with air trapping. Study limited. Formal PFTs ordered, not yet completed. Presently CTA, adequate oxygenation on room air, no concern for exacerbation at this time. -Continue Breo Ellipta -Continue Albuterol PRN 10. Migraine: Patient with episodic migraines. Well-controlled. -Continue topiramate -rimegepant prn for migraine relief if needed 11. Tremor: Patient with coarse postural and action tremor. -Continue topiramate 12. Osteoporosis-with h/o multiple fractures from falls -see if [place] can be brought in from home -restart home calcium and Vit D Ppx - Low risk for DVT. Code - Full PT/OT-please see 3x/week Case Management consultation for fci placement. This has been discussed by the PCP. Target process complete and awaiting bed availability. Would be stable for D/C pending arrangements - Updated at bedside on 02/06 will update today (2) Cirrhosis: (3) Diabetes mellitus: (4) Seizure: (5) Myoclonic seizure: (6) Hyperammonemia: (7) Parkinsonism: Admission and Anticipated Discharge Date Admission Date: January 31, 2021 Subjective Reports feeling okay today. Some mild R knee pain but states the Voltaren helps. Tolerating a diet without issue. Reports her chronic depression is stable again no SI/plans. Review of Systems Review of Systems: All systems reviewed & are unremarkable except as noted in Subjective Physical Exam Physical Exam: PHYSICAL EXAM General Appearance: Frail; in NAD who is A&O x 3 HEENT: Head is normocephalic/atraumatic; Hearing grossly intact; anicteric sclera; Mucous membranes slightly dry Neck: Supple; Trachea midline; Neg JVD Heart: RRR with no M/G/R Lungs: CTA in all lung dyer bilaterally; Respirations unlabored; Neg accessory muscle use Abdomen: Soft, non-tender, non-distended; Positive BS x 4 quadrants Extremities: Neg cyanosis or edema; no edema of the lower extremities; some contractures of bilateral fingers; well healed surgical incision to the lateral aspect of R thigh/knee without erythema/drainage Neurological: Speech clear; Gross motor/sensory function intact; Neg focal neurologic deficits; +tremor; +choreiform movements of head (doesn't seem to be present when not in the room but starts when entering and interacting) Psychiatric: Appropriate mood/affect Skin: Normal Color; Warm/Dry Results & Data Results & Data ([facility]) Vital Signs (Past 12 Hours) Vital Signs Temp Pulse Resp BP Pulse Ox 02/08/21 07:23 36.8 C 62 16 114/76 98 PG Care Time/CCT Total # of Minutes Spent Total Time Spent with Patient: Total time spent is greater than 50% in coordination of care (as documented) at patient's floor/unit and/or counseling patient: Coding Level of Care Code 76170 Subseq Hosp Care Lvl 2 Diagnoses Acute UTI N39.0 Cirrhosis K74.60 Diabetes mellitus E11.9 Seizure R56.9 Myoclonic seizure G40.409 Hyperammonemia E72.20 Parkinsonism G20
[2021-02-08] MEDS: ACETAMINOPHEN 500 MG TAB PO SCH (19:11)
[2021-02-08] MEDS: MELATONIN 3 MG TAB PO SCH (21:09)
[2021-02-08] MEDS: FAMOTIDINE 20 MG TAB PO SCH (21:09)
[2021-02-09] MEDS: LEVOTHYROXINE SODIUM 50 MCG TABLET PO SCH (04:53)
[2021-02-09 05:43] LABS: Hematocrit (blood only) 29.4 % (37-47); Hemoglobin 10.3 g/dL (12.0-16.0); Mean Corpuscular Hemoglobin 37.9 pg (25-34); Mean Corpuscular Volume 108.1 fL (80-100); RDW Standard Deviation 54.2 fL (36.4-46.3); Red Blood Count 2.72 M/uL (4.2-5.4); White Blood Count 5.02 K/uL (4.8-10.8)
[2021-02-09 06:11] LABS: BUN Creatinine Ratio 30.9 (10-20); Calcium 8.2 mg/dl (8.5-10.1); Creatinine Clr Calc Pharmacy 119.2 ml/min; Est GFR (Non-African American) 110.4 ml/min; Potassium 4.1 mmol/L (3.5-5.1)
[2021-02-09 06:23] LABS: Mean Platelet Volume 9.8 fL (7.4-10.4); Platelet Count 93 K/uL (130-400)
[2021-02-09 06:24] LABS: Platelet Estimate Decreased (Normal)
[2021-02-09] MEDS: DICLOFENAC SOD 1% GEL 100 GM TUBE EXT SCH ×4 (08:16→21:17)
[2021-02-09] MEDS: BENZTROPINE MESYLATE 1 MG TAB PO SCH ×3 (08:26→21:17)
[2021-02-09] MEDS: ASCORBIC ACID 500 MG TAB PO SCH (08:26)
[2021-02-09] MEDS: CHOLECALCIFEROL 1,000 UNITS 25 MCG TAB PO SCH (08:27)
[2021-02-09] MEDS: CALCIUM CARBONATE 1250MG TAB PO SCH (08:27)
[2021-02-09] MEDS: HYDROCORTISONE 10 MG TAB PO SCH ×2 (08:28→17:08)
[2021-02-09] MEDS: ESCITALOPRAM OXALATE 20 MG TAB PO SCH (08:28)
[2021-02-09] MEDS: FEXOFENADINE 60 MG TAB PO SCH (08:28)
[2021-02-09] MEDS: levETIRAcetam 500 MG TAB PO SCH ×2 (08:29→21:18)
[2021-02-09] MEDS: MAGNESIUM OXIDE 400 MG TAB PO SCH ×2 (08:30→21:18)
[2021-02-09] MEDS: OXcarbazepine 150 MG TABLET PO SCH ×2 (08:30→21:19)
[2021-02-09] MEDS: PRAVASTATIN SOD 20 MG TAB PO SCH (08:30)
[2021-02-09] MEDS: rOPINIRole HCL 0.25 MG TABLET PO SCH ×2 (08:35→21:21)
[2021-02-09] MEDS: rifAXIMin 550 MG TABLET PO SCH ×2 (08:35→21:20)
[2021-02-09] MEDS: TOPIRAMATE 100 MG TAB PO SCH ×2 (08:35→21:20)
[2021-02-09] MEDS: LACTULOSE SYRUP 20 GM/30 ML UDC PO SCH ×3 (08:35→21:18)
[2021-02-09] MEDS: INSULIN GLARGINE SOLOSTAR 100 UNITS/ML 3 ML PEN SC SCH (08:37)
[2021-02-09] MEDS: INSULIN ASPART 100 UNITS/ML 3 ML PEN SC SCH ×4 (09:30→21:23)
[2021-02-09] MEDS: ADVANCED PROBIOTIC 1250 MG CAPSULE PO SCH (12:32)
[2021-02-09] MEDS: CEROVITE ADV FORMULA TAB PO SCH (12:32)
[2021-02-09] MEDS: VITAMIN B COMPLEX TAB PO SCH (12:33)
[2021-02-09] MEDS: ZINC SULFATE 220 MG CAPSULE PO SCH (12:33)
--- NOTE | 2021-02-09 18:43 | Hospitalist Progress Note ---
Date of Service February 09, 2021 Assessment & Plan (1) Acute UTI: Plan: 1. Acute UTI - patient with complaint of foul smelling darker colored urine. UA suggestive of infection. She is afebrile, HD stable. She was altered on admission which quickly resolved without much intervention other than one dose of ceftriaxone-acute encephalopathy may be secondary to underlying infection. Ur cx with Proteus resistance to FQs No sepsis, no fevers -completed 5 day course of Ceftriaxone 2gm IV daily 2. Hepatic encephalopathy: Patient with persistently elevated ammonia level. Ammonia =133 on admission and was altered although she improved without much intervention. Uncertain regarding medication compliance prior to arrival. Moving bowels now No need to check NH3 levels while is awake and conversive-doing well today from mental status/has remained stable -Continue Lactulose daily. Titrate to 2-3 soft BMs/day -Continue rifaximin 550 mg p.o. twice daily 3. Cirrhosis: Patient with liver cirrhosis secondary to STEVE, portal hypertension. Patient follows with gastroenterology, last seen by Dr. Toledo on 10/11/20. Patient had an EGD in June 2020 which showed no varices and mild portal-hypertensive gastropathy. Recent abdominal ultrasound with stable cirrhosis. HCV screening has been completed and is negative. AFP on 03/09/2019 = 2.6. INR =1.3. Elevation of AP and Tbili comparable to prior levels. -LFTs stable from previous Compensated at this time -Continue Lactulose -Continue Rifaximin 550 mg p.o. twice daily -Continue Pepcid 20mg po qHS - recently started by GI for complaint of nausea -Avoid hepatotoxic agents -Patient to have US in 1 year for HCC surveillance and EGD in 3 years for variceal screening. 4. Seizure disorder: Patient with history of seizure. She follows with neurology, last seen on 10/30/20 - follows for mixed tremor as well as dyskinesia and seizure history, parkinsonism. EEG completed in May 2018 revealed a generalized spike and slow wave abnormality consistent with an underlying generalized seizure disorder. Patient had an MRI brain completed in October 2017 which was unremarkable. Patient failed VNS placement in the past, device was explanted. Presently on topiramate, Trileptal and Keppra. reports no seizure x 1 year or greater -Continue Ropinirole -Continue topiramate -Continue Trileptal -Continue Keppra -Continue Benztropine for EPS 5. Diabetes: Patient with type 2 diabetes, well controlled, long-term use of insulin. Last hemoglobin A1c=5.6 on 05/23/20. Patient follows with Endocrinology/Diabetes education. Last seen on 01/04/21. -Continue Lantus while here, Tresiba as outpt -ISS -Goal blood sugar 100 - 140 -Recommend annual A1c monitoring -Followup with perinatal educator outpatient as instructed Adrenal insufficiency - [place] [facility] [place] -Continue Hydrocortisone bid -Patient follows with Endocrinology - they are questioning the validity of ACTH deficiency diagnosis and are planning to repeat testing to confirm diagnosis. 6. Chronic gait disorder - patient mostly in wheelchair at home. -Fall precautions -Wheelchair and walker as needed -Assistance as needed with transfers and ambulation -Patient has home health nurse -continue home B vitamin PT/OT consults recommend rehab 7. Hypothyroidism TSH here elevated at 7.8, question compliance -Continue Synthroid home dose and repeat TFTs in 4-6 weeks 8. Depression - Chronic. - Asked her nurse on 02/07 about needing a 3S admission - had a long conversation with her on 02/07 and she does not think her depression is worse than its usual and she has had this since she was a kid. She states some days are better than others but not worse then her baseline. She does agree she has a lot of stressors with her own health, 's health, and the process of being placed into long-term care. She denies suicidal ideations/thoughts/plans. She also stated she feels the lemon [place] ice will help her feel better... -- Readdressed today and reports no SI/plans -Continue Escitalopram -Melatonin qhs 9. Asthma - history of severe persistent asthma. She has seen Pulmonary as well as Allergy/Immunology in the past. Spirometry performed on 04/23/19 with FVC=1.37, 38% predicted. FEV1=1.18, 40% predicted and FEV1/FVC=86%. Suggestive of restrictive process vs obstruction with air trapping. Study limited. Formal PFTs ordered, not yet completed. Presently CTA, adequate oxygenation on room air, no concern for exacerbation at this time. -Continue Breo Ellipta -Continue Albuterol PRN 10. Migraine: Patient with episodic migraines. Well-controlled. -Continue topiramate -rimegepant prn for migraine relief if needed 11. Tremor: Patient with coarse postural and action tremor. -Continue topiramate 12. Osteoporosis-with h/o multiple fractures from falls -see if Lizzie can be brought in from home -restart home calcium and Vit D Ppx - Low risk for DVT. Code - Full PT/OT-please see 3x/week Case Management consultation for nursing home placement. This has been discussed by the PCP. Target process complete and awaiting bed availability. Would be stable for D/C pending arrangements - Updated at bedside on 02/09 (2) Cirrhosis: (3) Diabetes mellitus: (4) Seizure: (5) Myoclonic seizure: (6) Hyperammonemia: (7) Parkinsonism: Admission and Anticipated Discharge Date Admission Date: January 31, 2021 Subjective Verbalizes no complaints. Reports R knee pain is chronic but manageable. Feels like she is doing a bit better with mobility than she has in awhile. Mostly fixated on lemon palest[place] ice and being able to have bread/bagels with her meal. mentation is at baseline. Tolerating her diet. Continues to move bowels. Review of Systems Review of Systems: All systems reviewed & are unremarkable except as noted in Subjective Physical Exam Physical Exam: PHYSICAL EXAM General Appearance: Frail; in NAD who is A&O x 3 HEENT: Head is normocephalic/atraumatic; Hearing grossly intact; anicteric sclera; Mucous membranes slightly dry Neck: Supple; Trachea midline; Neg JVD Heart: RRR with no M/G/R Lungs: CTA in all lung dyer bilaterally; Respirations unlabored; Neg accessory muscle use Abdomen: Soft, non-tender, non-distended; Positive BS x 4 quadrants Extremities: Neg cyanosis or edema; no edema of the lower extremities; some contractures of bilateral fingers; well healed surgical incision to the lateral aspect of R thigh/knee without erythema/drainage Neurological: Speech clear; Gross motor/sensory function intact; Neg focal neurologic deficits; +tremor; +choreiform movements of head (doesn't seem to be present when not in the room but starts when entering and interacting) Psychiatric: Appropriate mood/affect Skin: Normal Color; Warm/Dry Results & Data Results & Data ([facility]) Vital Signs (Past 12 Hours) Vital Signs Temp Pulse Resp BP BP Pulse Ox 02/09/21 15:15 36.7 C 66 17 136/78 95 02/09/21 07:39 36.9 C 57 L 17 99/58 L 98 PG Care Time/CCT Total # of Minutes Spent Total Time Spent with Patient: Total time spent is greater than 50% in coordination of care (as documented) at patient's floor/unit and/or counseling patient: Coding Level of Care Code 79291 Subseq Hosp Care Lvl 2 Diagnoses Acute UTI N39.0 Cirrhosis K74.60 Diabetes mellitus E11.9 Seizure R56.9 Myoclonic seizure G40.409 Hyperammonemia E72.20 Parkinsonism G20
[2021-02-09] MEDS: ACETAMINOPHEN 500 MG TAB PO SCH (21:16)
[2021-02-09] MEDS: FAMOTIDINE 20 MG TAB PO SCH (21:17)
[2021-02-09] MEDS: MELATONIN 3 MG TAB PO SCH (21:25)
[2021-02-10] MEDS: LEVOTHYROXINE SODIUM 50 MCG TABLET PO SCH (06:09)
[2021-02-10] MEDS: BENZTROPINE MESYLATE 1 MG TAB PO SCH ×3 (07:47→20:17)
[2021-02-10] MEDS: ASCORBIC ACID 500 MG TAB PO SCH (07:47)
[2021-02-10] MEDS: CALCIUM CARBONATE 1250MG TAB PO SCH (07:47)
[2021-02-10] MEDS: CHOLECALCIFEROL 1,000 UNITS 25 MCG TAB PO SCH (07:48)
[2021-02-10] MEDS: FEXOFENADINE 60 MG TAB PO SCH (07:49)
[2021-02-10] MEDS: ESCITALOPRAM OXALATE 20 MG TAB PO SCH (07:49)
[2021-02-10] MEDS: DICLOFENAC SOD 1% GEL 100 GM TUBE EXT SCH ×5 (07:49→21:04)
[2021-02-10] MEDS: LACTULOSE SYRUP 20 GM/30 ML UDC PO SCH ×3 (07:50→20:26)
[2021-02-10] MEDS: levETIRAcetam 500 MG TAB PO SCH ×2 (07:50→20:20)
[2021-02-10] MEDS: HYDROCORTISONE 10 MG TAB PO SCH ×2 (07:50→17:17)
[2021-02-10] MEDS: MAGNESIUM OXIDE 400 MG TAB PO SCH ×2 (07:51→20:21)
[2021-02-10] MEDS: OXcarbazepine 150 MG TABLET PO SCH ×2 (07:52→20:21)
[2021-02-10] MEDS: PRAVASTATIN SOD 20 MG TAB PO SCH (07:52)
[2021-02-10] MEDS: rifAXIMin 550 MG TABLET PO SCH ×2 (07:52→20:23)
[2021-02-10] MEDS: TOPIRAMATE 100 MG TAB PO SCH ×2 (07:53→20:25)
[2021-02-10] MEDS: rOPINIRole HCL 0.25 MG TABLET PO SCH ×2 (07:53→20:23)
[2021-02-10] MEDS: INSULIN GLARGINE SOLOSTAR 100 UNITS/ML 3 ML PEN SC SCH (08:12)
[2021-02-10] MEDS: INSULIN ASPART 100 UNITS/ML 3 ML PEN SC SCH ×4 (09:43→21:00)
[2021-02-10] MEDS: ADVANCED PROBIOTIC 1250 MG CAPSULE PO SCH (11:43)
[2021-02-10] MEDS: CEROVITE ADV FORMULA TAB PO SCH (11:43)
[2021-02-10] MEDS: ZINC SULFATE 220 MG CAPSULE PO SCH (11:44)
[2021-02-10] MEDS: VITAMIN B COMPLEX TAB PO SCH (11:44)
--- NOTE | 2021-02-10 12:55 | Hospitalist Progress Note ---
Date of Service February 10, 2021 Assessment & Plan (1) Acute UTI: Plan: 1. Acute UTI - patient with complaint of foul smelling darker colored urine. UA suggestive of infection. She is afebrile, HD stable. She was altered on admission which quickly resolved without much intervention other than one dose of ceftriaxone-acute encephalopathy may be secondary to underlying infection. Ur cx with Proteus resistance to FQs No sepsis, no fevers -completed 5 day course of Ceftriaxone 2gm IV daily - reports no urinary symptoms today 2. Hepatic encephalopathy: Patient with persistently elevated ammonia level. Ammonia =133 on admission and was altered although she improved without much intervention. Uncertain regarding medication compliance prior to arrival. Moving bowels now No need to check NH3 levels while is awake and conversive-doing well today from mental status/has remained stable -Continue Lactulose daily. Titrate to 2-3 soft BMs/day -Continue rifaximin 550 mg p.o. twice daily 3. Cirrhosis: Patient with liver cirrhosis secondary to STEVE, portal hypertension. Patient follows with gastroenterology, last seen by Dr. Toledo on 10/11/20. Patient had an EGD in June 2020 which showed no varices and mild portal-hypertensive gastropathy. Recent abdominal ultrasound with stable cirrhosis. HCV screening has been completed and is negative. AFP on 03/09/2019 = 2.6. INR =1.3. Elevation of AP and Tbili comparable to prior levels. -LFTs stable from previous; Compensated at this time -Continue Lactulose -Continue Rifaximin 550 mg p.o. twice daily -Continue Pepcid 20mg po qHS - recently started by GI for complaint of nausea -Avoid hepatotoxic agents -Patient to have US in 1 year for HCC surveillance and EGD in 3 years for variceal screening. 4. Seizure disorder: Patient with history of seizure. She follows with neurology, last seen on 10/30/20 - follows for mixed tremor as well as dyskinesia and seizure history, parkinsonism. EEG completed in May 2018 revealed a generalized spike and slow wave abnormality consistent with an underlying generalized seizure disorder. Patient had an MRI brain completed in October 2017 which was unremarkable. Patient failed VNS placement in the past, device was explanted. Presently on topiramate, Trileptal and Keppra. reports no seizure x 1 year or greater -Continue Ropinirole -Continue topiramate -Continue Trileptal -Continue Keppra -Continue Benztropine for EPS 5. Diabetes: Patient with type 2 diabetes, well controlled, long-term use of insulin. Last hemoglobin A1c=5.6 on 05/23/20. Patient follows with Endocrinology/Diabetes education. Last seen on 01/04/21. -Continue Lantus while here, Tresiba as outpt -ISS -Goal blood sugar 100 - 140 -Recommend annual A1c monitoring -Followup with block bolter mule operator outpatient as instructed Adrenal insufficiency - [place] [facility] [place] -Continue Hydrocortisone bid -Patient follows with Endocrinology - they are questioning the validity of ACTH deficiency diagnosis and are planning to repeat testing to confirm diagnosis. 6. Chronic gait disorder - patient mostly in wheelchair at home. -Fall precautions -Wheelchair and walker as needed -Assistance as needed with transfers and ambulation -Patient has home health nurse -continue home B vitamin PT/OT consults recommend rehab 7. Hypothyroidism TSH here elevated at 7.8, question compliance -Continue Synthroid home dose and repeat TFTs in 4-6 weeks 8. Depression - Chronic. - Asked her nurse on 02/07 about needing a 3S admission - had a long conversation with her on 02/07 and she does not think her depression is worse than its usual and she has had this since she was a kid. She states some days are better than others but not worse then her baseline. She does agree she has a lot of stressors with her own health, 's health, and the process of being placed into long-term care. She denies suicidal ideations/thoughts/plans. She also stated she feels the lemon [place] ice will help her feel better... -- Readdressed today and reports no SI/plans -Continue Escitalopram -Melatonin qhs 9. Asthma - history of severe persistent asthma. She has seen Pulmonary as well as Allergy/Immunology in the past. Spirometry performed on 04/23/19 with FVC=1.37, 38% predicted. FEV1=1.18, 40% predicted and FEV1/FVC=86%. Suggestive of restrictive process vs obstruction with air trapping. Study limited. Formal PFTs ordered, not yet completed. Presently CTA, adequate oxygenation on room air, no concern for exacerbation at this time. -Continue Breo Ellipta -Continue Albuterol PRN 10. Migraine: Patient with episodic migraines. Well-controlled. -Continue topiramate -rimegepant prn for migraine relief if needed 11. Tremor: Patient with coarse postural and action tremor. -Continue topiramate 12. Osteoporosis-with h/o multiple fractures from falls - On Forteo at home - NF - can see if can bring this in given length of anticipated stay -restart home calcium and Vit D Ppx - Low risk for DVT. Code - Full PT/OT-please see 3x/week Case Management consultation for oysterman placement. This has been discussed by the PCP. Target process complete and awaiting bed availability. Would be stable for D/C pending arrangements - Updated at bedside on 02/09 (2) Cirrhosis: (3) Diabetes mellitus: (4) Seizure: (5) Myoclonic seizure: (6) Hyperammonemia: (7) Parkinsonism: Admission and Anticipated Discharge Date Admission Date: January 31, 2021 Subjective Patient reports no complaints today. She is tolerating her diet. Reports her mood is stable. The Voltaren gel helps her R knee. She asks daily for lemon ar[place]ian ice and if she can have bread Review of Systems Review of Systems: All systems reviewed & are unremarkable except as noted in Subjective Physical Exam Physical Exam: PHYSICAL EXAM General Appearance: Frail; in NAD who is A&O x 3 HEENT: Head is normocephalic/atraumatic; Hearing grossly intact; anicteric sclera; Mucous membranes slightly dry Neck: Supple; Trachea midline; Neg JVD Heart: RRR with no M/G/R Lungs: CTA in all lung dyer bilaterally; Respirations unlabored; Neg accessory muscle use Abdomen: Soft, non-tender, non-distended; Positive BS x 4 quadrants Extremities: Neg cyanosis or edema; no edema of the lower extremities; well healed surgical incision to the lateral aspect of R thigh/knee without erythema/drainage Neurological: Speech clear; Gross motor/sensory function intact; Neg focal neurologic deficits; +tremor; +choreiform movements of head (seems a little less today) Psychiatric: Appropriate mood/affect Skin: Normal Color; Warm/Dry Results & Data Results & Data ([facility]) Vital Signs (Past 12 Hours) Vital Signs Temp Pulse Resp BP Pulse Ox 02/10/21 08:23 36.8 C 89 17 117/71 95 PG Care Time/CCT Total # of Minutes Spent Total Time Spent with Patient: Total time spent is greater than 50% in coordination of care (as documented) at patient's floor/unit and/or counseling patient: Coding Level of Care Code 64197 Subseq Hosp Care Lvl 2 Diagnoses Acute UTI N39.0 Cirrhosis K74.60 Diabetes mellitus E11.9 Seizure R56.9 Myoclonic seizure G40.409 Hyperammonemia E72.20 Parkinsonism G20
[2021-02-10] MEDS: ACETAMINOPHEN 500 MG TAB PO SCH (20:15)
[2021-02-10] MEDS: FAMOTIDINE 20 MG TAB PO SCH (20:17)
[2021-02-10] MEDS: MELATONIN 3 MG TAB PO SCH (20:27)
[2021-02-11] MEDS: LEVOTHYROXINE SODIUM 50 MCG TABLET PO SCH (05:57)
[2021-02-11] MEDS: DICLOFENAC SOD 1% GEL 100 GM TUBE EXT SCH ×4 (08:27→20:20)
[2021-02-11] MEDS: ASCORBIC ACID 500 MG TAB PO SCH (08:31)
[2021-02-11] MEDS: BENZTROPINE MESYLATE 1 MG TAB PO SCH ×3 (08:31→20:19)
[2021-02-11] MEDS: CHOLECALCIFEROL 1,000 UNITS 25 MCG TAB PO SCH (08:32)
[2021-02-11] MEDS: CALCIUM CARBONATE 1250MG TAB PO SCH (08:32)
[2021-02-11] MEDS: ESCITALOPRAM OXALATE 20 MG TAB PO SCH (08:33)
[2021-02-11] MEDS: FEXOFENADINE 60 MG TAB PO SCH (08:34)
[2021-02-11] MEDS: HYDROCORTISONE 10 MG TAB PO SCH ×2 (08:35→17:28)
[2021-02-11] MEDS: levETIRAcetam 500 MG TAB PO SCH ×2 (08:35→20:19)
[2021-02-11] MEDS: MAGNESIUM OXIDE 400 MG TAB PO SCH ×2 (08:36→20:19)
[2021-02-11] MEDS: PRAVASTATIN SOD 20 MG TAB PO SCH (08:37)
[2021-02-11] MEDS: OXcarbazepine 150 MG TABLET PO SCH ×2 (08:37→20:20)
[2021-02-11] MEDS: rifAXIMin 550 MG TABLET PO SCH ×2 (08:38→20:20)
[2021-02-11] MEDS: TOPIRAMATE 100 MG TAB PO SCH ×2 (08:39→20:19)
[2021-02-11] MEDS: rOPINIRole HCL 0.25 MG TABLET PO SCH ×2 (08:39→20:20)
[2021-02-11] MEDS: LACTULOSE SYRUP 20 GM/30 ML UDC PO SCH ×4 (08:50→20:29)
[2021-02-11] MEDS: INSULIN GLARGINE SOLOSTAR 100 UNITS/ML 3 ML PEN SC SCH (08:50)
[2021-02-11] MEDS: INSULIN ASPART 100 UNITS/ML 3 ML PEN SC SCH ×4 (10:23→21:57)
[2021-02-11] MEDS: ADVANCED PROBIOTIC 1250 MG CAPSULE PO SCH (12:20)
[2021-02-11] MEDS: CEROVITE ADV FORMULA TAB PO SCH (12:21)
[2021-02-11] MEDS: VITAMIN B COMPLEX TAB PO SCH (12:22)
[2021-02-11] MEDS: ZINC SULFATE 220 MG CAPSULE PO SCH (12:23)
--- NOTE | 2021-02-11 18:58 | Hospitalist Progress Note ---
Date of Service February 11, 2021 Assessment & Plan (1) Acute UTI: Plan: 1. Acute UTI - patient with complaint of foul smelling darker colored urine. UA suggestive of infection. She is afebrile, HD stable. She was altered on admission which quickly resolved without much intervention other than one dose of ceftriaxone-acute encephalopathy may be secondary to underlying infection. Ur cx with Proteus resistance to FQs No sepsis, no fevers -completed 5 day course of Ceftriaxone 2gm IV daily - reports no urinary symptoms 2. Hepatic encephalopathy: Patient with persistently elevated ammonia level. Ammonia =133 on admission and was altered although she improved without much intervention. Uncertain regarding medication compliance prior to arrival. Moving bowels now No need to check NH3 levels while is awake and conversive- mental status has remained stable x many days -Continue Lactulose daily. Titrate to 2-3 soft BMs/day -Continue rifaximin 550 mg p.o. twice daily 3. Cirrhosis: Patient with liver cirrhosis secondary to STEVE, portal hypertension. Patient follows with gastroenterology, last seen by Dr. Toledo on 10/11/20. Patient had an EGD in June 2020 which showed no varices and mild portal-hypertensive gastropathy. Recent abdominal ultrasound with stable cirrhosis. HCV screening has been completed and is negative. AFP on 03/09/2019 = 2.6. INR =1.3. Elevation of AP and Tbili comparable to prior levels. -LFTs stable from previous; Compensated at this time -Continue Lactulose -Continue Rifaximin 550 mg p.o. twice daily -Continue Pepcid 20mg po qHS - recently started by GI for complaint of nausea -Avoid hepatotoxic agents -Patient to have US in 1 year for HCC surveillance and EGD in 3 years for variceal screening. 4. Seizure disorder: Patient with history of seizure. She follows with neurology, last seen on 10/30/20 - follows for mixed tremor as well as dyskinesia and seizure history, parkinsonism. EEG completed in May 2018 revealed a generalized spike and slow wave abnormality consistent with an underlying generalized seizure disorder. Patient had an MRI brain completed in October 2017 which was unremarkable. Patient failed VNS placement in the past, device was explanted. Presently on topiramate, Trileptal and Keppra. reports no seizure x 1 year or greater -Continue Ropinirole -Continue topiramate -Continue Trileptal -Continue Keppra -Continue Benztropine for EPS 5. Diabetes: Patient with type 2 diabetes, well controlled, long-term use of insulin. Last hemoglobin A1c=5.6 on 05/23/20. Patient follows with Endocrinology/Diabetes education. Last seen on 01/04/21. -Continue Lantus while here, Tresiba as outpt -ISS -Goal blood sugar 100 - 140 -Recommend annual A1c monitoring -Followup with flume ride operator outpatient as instructed Adrenal insufficiency - recently diagnosed at [facility] [place]. -Continue Hydrocortisone bid -Patient follows with Endocrinology - they are questioning the validity of ACTH deficiency diagnosis and are planning to repeat testing to confirm diagnosis. 6. Chronic gait disorder - patient mostly in wheelchair at home. -Fall precautions -Wheelchair and walker as needed -Assistance as needed with transfers and ambulation -Patient has home health nurse -continue home B vitamin PT/OT consults recommend rehab 7. Hypothyroidism TSH here elevated at 7.8, question compliance -Continue Synthroid home dose and repeat TFTs in 4-6 weeks 8. Depression - Chronic. - Asked her nurse on 02/07 about needing a 3S admission - had a long conversation with her on 02/07 and she does not think her depression is worse than its usual and she has had this since she was a kid. She states some days are better than others but not worse then her baseline. She does agree she has a lot of stressors with her own health, 's health, and the process of being placed into long-term care. She denies suicidal ideations/thoughts/plans. She also stated she feels the lemon [place] ice will help her feel better... -- Readdressed today and reports no SI/plans -Continue Escitalopram -Melatonin qhs 9. Asthma - history of severe persistent asthma. She has seen Pulmonary as well as Allergy/Immunology in the past. Spirometry performed on 04/23/19 with FVC=1.37, 38% predicted. FEV1=1.18, 40% predicted and FEV1/FVC=86%. Suggestive of restrictive process vs obstruction with air trapping. Study limited. Formal PFTs ordered, not yet completed. Presently CTA, adequate oxygenation on room air, no concern for exacerbation at this time. -Continue Breo Ellipta -Continue Albuterol PRN 10. Migraine: Patient with episodic migraines. Well-controlled. -Continue topiramate -rimegepant prn for migraine relief if needed 11. Tremor: Patient with coarse postural and action tremor. -Continue topiramate 12. Osteoporosis-with h/o multiple fractures from falls - On Forteo at home - NF - discussed with on 02/10 to remind him if he could bring this in -restart home calcium and Vit D Ppx - Low risk for DVT. Code - Full PT/OT-please see 3x/week Case Management consultation for longterm placement. This has been discussed by the PCP. Target process complete and awaiting bed availability. Would be stable for D/C pending arrangements - Updated at bedside on 02/11 - Patient also asked for referral to [facility] - please discuss with Case Management as they were gone for the day and does not appear a referral was tried for [facility] (2) Cirrhosis: (3) Diabetes mellitus: (4) Seizure: (5) Myoclonic seizure: (6) Hyperammonemia: (7) Parkinsonism: Admission and Anticipated Discharge Date Admission Date: January 31, 2021 Subjective Pt is doing well today. Mentation is baseline. She is a bit food obsessed. She is tolerating changing diet from mince/moist to easy to chew without signs of c hocking/coughing. Her main focus is gu[place] ice and being able to have more bread. She reports R knee pain. States the Voltaren and Tylenol helps. Then will ask for something more. She states she takes Oxycodone for her shoulder but review of the PDMP she last had an Rx in August for only 12 tablets so unlike still taking this. Discussed with her avoidance of narcotics especially in the setting of her other medications, she verbalized understanding. Review of Systems Review of Systems: All systems reviewed & are unremarkable except as noted in Subjective Physical Exam Physical Exam: PHYSICAL EXAM General Appearance: Frail; in NAD who is A&O x 3 HEENT: Head is normocephalic/atraumatic; Hearing grossly intact; anicteric sclera; Mucous membranes slightly dry Neck: Supple; Trachea midline; Neg JVD Heart: RRR with no M/G/R Lungs: CTA in all lung dyer bilaterally; Respirations unlabored; Neg accessory muscle use Abdomen: Soft, non-tender, non-distended; Positive BS x 4 quadrants Extremities: Neg cyanosis or edema; no edema of the lower extremities; well healed surgical incision to the lateral aspect of R thigh/knee without erythema/drainage Neurological: Speech clear; Gross motor/sensory function intact; Neg focal neurologic deficits; +tremor; +choreiform movements of head (seems a little less today) Psychiatric: Appropriate mood/affect Skin: Normal Color; Warm/Dry Results & Data Results & Data ([facility]) Vital Signs (Past 12 Hours) Vital Signs Temp Pulse Resp BP Pulse Ox 02/11/21 15:00 63 17 94 02/11/21 07:41 37.0 C 57 L 17 110/67 98 PG Care Time/CCT Total # of Minutes Spent Total Time Spent with Patient: Total time spent is greater than 50% in coordination of care (as documented) at patient's floor/unit and/or counseling patient: Coding Level of Care Code 08415 Subseq Hosp Care Lvl 2 Diagnoses Acute UTI N39.0 Cirrhosis K74.60 Diabetes mellitus E11.9 Seizure R56.9 Myoclonic seizure G40.409 Hyperammonemia E72.20 Parkinsonism G20
[2021-02-11] MEDS: MELATONIN 3 MG TAB PO SCH (20:19)
[2021-02-11] MEDS: FAMOTIDINE 20 MG TAB PO SCH (20:19)
[2021-02-11] MEDS: ACETAMINOPHEN 500 MG TAB PO SCH (20:20)
[2021-02-12] MEDS: LEVOTHYROXINE SODIUM 50 MCG TABLET PO SCH (04:39)
[2021-02-12 06:42] LABS: Hematocrit (blood only) 27.3 % (37-47); Hemoglobin 9.4 g/dL (12.0-16.0); Mean Corpuscular Hemoglobin 36.7 pg (25-34); Mean Corpuscular Hgb Conc 34.4 g/dL (32-36); Mean Corpuscular Volume 106.6 fL (80-100); RDW Coefficient of Variation 13.2 % (11.5-14.5); RDW Standard Deviation 51.1 fL (36.4-46.3); Red Blood Count 2.56 M/uL (4.2-5.4)
[2021-02-12 07:03] LABS: Mean Platelet Volume 9.8 fL (7.4-10.4); Platelet Count 78 K/uL (130-400)
[2021-02-12 07:15] LABS: Albumin Level 2.1 gm/dl (3.4-5.0); BUN Creatinine Ratio 30.3 (10-20); Calcium 7.4 mg/dl (8.5-10.1); Est GFR (African American) 135.9 ml/min; Est GFR (Non-African American) 117.3 ml/min; Potassium 3.9 mmol/L (3.5-5.1)
[2021-02-12 07:18] LABS: Albumin Globulin Ratio 0.8 (0.9-2); Bilirubin,Total 0.7 mg/dl (0.2-1); Globulin 2.7 gm/dl (2.5-4.0); Total Protein 4.8 gm/dl (6.4-8.2)
[2021-02-12] MEDS: ESCITALOPRAM OXALATE 20 MG TAB PO SCH (08:42)
[2021-02-12] MEDS: CHOLECALCIFEROL 1,000 UNITS 25 MCG TAB PO SCH (08:42)
[2021-02-12] MEDS: ASCORBIC ACID 500 MG TAB PO SCH (08:42)
[2021-02-12] MEDS: CALCIUM CARBONATE 1250MG TAB PO SCH (08:42)
[2021-02-12] MEDS: BENZTROPINE MESYLATE 1 MG TAB PO SCH ×3 (08:42→21:04)
[2021-02-12] MEDS: OXcarbazepine 150 MG TABLET PO SCH ×2 (08:43→21:04)
[2021-02-12] MEDS: rifAXIMin 550 MG TABLET PO SCH ×2 (08:43→21:07)
[2021-02-12] MEDS: FEXOFENADINE 60 MG TAB PO SCH (08:43)
[2021-02-12] MEDS: TOPIRAMATE 100 MG TAB PO SCH ×2 (08:43→21:05)
[2021-02-12] MEDS: levETIRAcetam 500 MG TAB PO SCH ×2 (08:43→21:03)
[2021-02-12] MEDS: PRAVASTATIN SOD 20 MG TAB PO SCH (08:43)
[2021-02-12] MEDS: MAGNESIUM OXIDE 400 MG TAB PO SCH ×2 (08:43→21:03)
[2021-02-12] MEDS: rOPINIRole HCL 0.25 MG TABLET PO SCH ×2 (08:43→21:04)
[2021-02-12] MEDS: HYDROCORTISONE 10 MG TAB PO SCH ×2 (08:53→15:22)
[2021-02-12] MEDS: DICLOFENAC SOD 1% GEL 100 GM TUBE EXT SCH ×4 (08:53→21:06)
[2021-02-12] MEDS: LACTULOSE SYRUP 20 GM/30 ML UDC PO SCH ×3 (08:53→21:06)
[2021-02-12] MEDS: INSULIN GLARGINE SOLOSTAR 100 UNITS/ML 3 ML PEN SC SCH (08:54)
[2021-02-12] MEDS: INSULIN ASPART 100 UNITS/ML 3 ML PEN SC SCH ×4 (08:56→21:08)
[2021-02-12] MEDS: CEROVITE ADV FORMULA TAB PO SCH (12:20)
[2021-02-12] MEDS: ADVANCED PROBIOTIC 1250 MG CAPSULE PO SCH (12:20)
[2021-02-12] MEDS: VITAMIN B COMPLEX TAB PO SCH (12:20)
[2021-02-12] MEDS: ZINC SULFATE 220 MG CAPSULE PO SCH (12:20)
[2021-02-12] MEDS ORDERED: ACETAMINOPHEN 325 MG TAB PO PRN (12:38)
[2021-02-12] MEDS ORDERED: SUMAtriptan succinate 50 MG TAB PO ONE (16:45)
--- NOTE | 2021-02-12 16:53 | Hospitalist Progress Note ---
Date of Service February 12, 2021 Assessment & Plan (1) Acute UTI: Plan: 1. Acute UTI - patient with complaint of foul smelling darker colored urine. UA suggestive of infection. She is afebrile, HD stable. She was altered on admission which quickly resolved without much intervention other than one dose of ceftriaxone-acute encephalopathy may be secondary to underlying infection. Ur cx with Proteus resistance to FQs No sepsis, no fevers -completed 5 day course of Ceftriaxone 2gm IV daily - reports no urinary symptoms 2. Hepatic encephalopathy: Patient with persistently elevated ammonia level. Ammonia =133 on admission and was altered although she improved without much intervention. Uncertain regarding medication compliance prior to arrival. Moving bowels now No need to check NH3 levels while is awake and conversive- mental status has remained stable x many days -Continue Lactulose daily. Titrate to 2-3 soft BMs/day -Continue rifaximin 550 mg p.o. twice daily 3. Cirrhosis: Patient with liver cirrhosis secondary to STEVE, portal hypertension. Patient follows with gastroenterology, last seen by Dr. Toledo on 10/11/20. Patient had an EGD in June 2020 which showed no varices and mild portal-hypertensive gastropathy. Recent abdominal ultrasound with stable cirrhosis. HCV screening has been completed and is negative. AFP on 03/09/2019 = 2.6. INR =1.3. Elevation of AP and Tbili comparable to prior levels. -LFTs stable from previous; Compensated at this time -Continue Lactulose -Continue Rifaximin 550 mg p.o. twice daily -Continue Pepcid 20mg po qHS - recently started by GI for complaint of nausea -Avoid hepatotoxic agents -Patient to have US in 1 year for HCC surveillance and EGD in 3 years for variceal screening. 4. Seizure disorder: Patient with history of seizure. She follows with neurology, last seen on 10/30/20 - follows for mixed tremor as well as dyskinesia and seizure history, parkinsonism. EEG completed in May 2018 revealed a generalized spike and slow wave abnormality consistent with an underlying generalized seizure disorder. Patient had an MRI brain completed in October 2017 which was unremarkable. Patient failed VNS placement in the past, device was explanted. Presently on topiramate, Trileptal and Keppra. reports no seizure x 1 year or greater -Continue Ropinirole -Continue topiramate -Continue Trileptal -Continue Keppra -Continue Benztropine for EPS 5. Diabetes: Patient with type 2 diabetes, well controlled, long-term use of insulin. Last hemoglobin A1c=5.6 on 05/23/20. Patient follows with Endocrinology/Diabetes education. Last seen on 01/04/21. -Continue Lantus while here, Tresiba as outpt -ISS -Goal blood sugar 100 - 140 -Recommend annual A1c monitoring -Followup with network cabler outpatient as instructed Adrenal insufficiency - recently diagnosed at [facility] [place], [place]. -Continue Hydrocortisone bid -Patient follows with Endocrinology - they are questioning the validity of ACTH deficiency diagnosis and are planning to repeat testing to confirm diagnosis. 6. Chronic gait disorder - patient mostly in wheelchair at home. -Fall precautions -Wheelchair and walker as needed -Assistance as needed with transfers and ambulation -Patient has home health nurse -continue home B vitamin PT/OT consults recommend rehab 7. Hypothyroidism TSH here elevated at 7.8, question compliance -Continue Synthroid home dose and repeat TFTs in 4-6 weeks 8. Depression - Chronic. - Asked her nurse on 02/07 about needing a 3S admission - had a long conversation with her on 02/07 and she does not think her depression is worse than its usual and she has had this since she was a kid. She states some days are better than others but not worse then her baseline. She does agree she has a lot of stressors with her own health, 's health, and the process of being placed into long-term care. She denies suicidal ideations/thoughts/plans. She also stated she feels the lemon [place] ice will help her feel better... - reports no SI/plans -Continue Escitalopram -Melatonin qhs 9. Asthma - history of severe persistent asthma. She has seen Pulmonary as well as Allergy/Immunology in the past. Spirometry performed on 04/23/19 with FVC=1.37, 38% predicted. FEV1=1.18, 40% predicted and FEV1/FVC=86%. Suggestive of restrictive process vs obstruction with air trapping. Study limited. Formal PFTs ordered, not yet completed. Presently CTA, adequate oxygenation on room air, no concern for exacerbation at this time. -Continue Breo Ellipta -Continue Albuterol PRN 10. Migraine: Patient with episodic migraines. Well-controlled. -Continue topiramate -give Imitrex prn for migraine relief if needed 11. Tremor: Patient with coarse postural and action tremor. -Continue topiramate 12. Osteoporosis-with h/o multiple fractures from falls - On Forteo at home - NF - discussed with on 02/10 to remind him if he could bring this in, again reminded her and him of this on 02/12 -continue home calcium and Vit D 13. Right sided jaw pain-occasional, has poor dentition-give prn magic swizzle, prn tylenol 14. Right knee pain-pt occasionally asks for oxycodone for this-reminded her she cannot have opioids due to her cirrhosis as this has caused her encephalopathy in the past. Start lidocaine patch to right knee 15. Right jaw pain-relieved with viscous lidocaine-advise f/u with dentist after discharge Ppx - Low risk for DVT. Code - Full PT/OT-please see 3x/week Case Management consultation for housekeeper and laundry assistant placement. This has been discussed by the PCP. Target process complete and awaiting bed availability. Would be stable for D/C pending arrangements (2) Cirrhosis: (3) Diabetes mellitus: (4) Seizure: (5) Myoclonic seizure: (6) Hyperammonemia: (7) Parkinsonism: Admission and Anticipated Discharge Date Admission Date: January 31, 2021 Subjective Had some right sided jaw pain today and reports that the previous magic swizzle she had helped with this and is asking for a dose. Also wants something for pain for her right knee -discussed lidocaine patches and she said she has used this in the past but it wasn't covered at her pharmacy so she stopped. Also asking for Imitrex for a developing migraine. Otherwise is moving her bowels, eating and drinking Review of Systems Review of Systems: All systems reviewed & are unremarkable except as noted in HPI & below Physical Exam Constitutional: WD/WN, vitals as above Eyes: + anicteric sclerae ENMT: external ear and nose normal, oropharynx normal Neck: trachea midline, no thyromegaly Respiratory: normal respiratory effort, lungs clear to auscultation Cardiovascular: RRR, no murmur, no edema Chest (Breasts): Chest: normal inspection of chest Gastrointestinal (Abdomen): normal bowel sounds, soft, nontender, no hepatosplenomegaly Musculoskeletal: Extremities: extremities normal to inspection; no cyanosis and no clubbing right knee no effusion, no erythema, no TTP Skin: no rashes, warm and dry Neurologic: moves all extremities and awake; no focal motor deficits Motor/Sensory: + tremor (choreiform movements of head that stop with distraction ) Psychiatric: A+Ox3, euthymic affect Lymphatic: no lymphedema Results & Data Results & Data ([facility]) Vital Signs (Past 12 Hours) Vital Signs Temp Pulse Resp BP Pulse Ox 02/12/21 11:41 36.6 C 69 18 128/56 L 98 02/12/21 08:16 36.7 C 97 H 18 113/68 99 Laboratory Results 02/12/21 02/12/21 02/12/21 Range/Units 12:11 08:09 06:14 WBC (4.8-10.8) K/uL RBC (4.2-5.4) M/uL Hgb (12.0-16.0) g/dL Hct (37-47) % MCV (80-100) fL MCH (25-34) pg MCHC (32-36) g/dL RDW Std Deviation (36.4-46.3) fL RDW Coeff of Irina (11.5-14.5) % Plt Count (130-400) K/uL MPV (7.4-10.4) fL Sodium 141 (136-145) mmol/L Potassium 3.9 (3.5-5.1) mmol/L Chloride 113 H (98-107) mmol/L Carbon Dioxide 22 (21-32) mmol/L Anion Gap 6.0 (3-11) BUN 12 (7-18) mg/dl Creatinine 0.40 L (0.6-1.2) mg/dl Est Cr Clr Drug Dosing 143.0 ml/min Est GFR ( Amer) 135.9 ml/min Est GFR (Non-Af Amer) 117.3 ml/min BUN/Creatinine Ratio 30.3 H (10-20) Glucose 106 H (70-99) mg/dl POC Glucose 137 H 89 (70-99) mg/dl Calcium 7.4 L (8.5-10.1) mg/dl Total Bilirubin 0.7 (0.2-1) mg/dl AST 34 (15-37) U/L ALT 52 (12-78) U/L Alkaline Phosphatase 236 H (45-117) U/L Total Protein 4.8 L (6.4-8.2) gm/dl Albumin 2.1 L (3.4-5.0) gm/dl Globulin 2.7 (2.5-4.0) gm/dl Albumin/Globulin Ratio 0.8 L (0.9-2) 02/12/21 02/11/21 02/11/21 Range/Units 06:14 20:43 17:07 WBC 3.50 L (4.8-10.8) K/uL RBC 2.56 L (4.2-5.4) M/uL Hgb 9.4 L (12.0-16.0) g/dL Hct 27.3 L (37-47) % MCV 106.6 H (80-100) fL MCH 36.7 H (25-34) pg MCHC 34.4 (32-36) g/dL RDW Std Deviation 51.1 H (36.4-46.3) fL RDW Coeff of Irina 13.2 (11.5-14.5) % Plt Count 78 L (130-400) K/uL MPV 9.8 (7.4-10.4) fL Sodium (136-145) mmol/L Potassium (3.5-5.1) mmol/L Chloride (98-107) mmol/L Carbon Dioxide (21-32) mmol/L Anion Gap (3-11) BUN (7-18) mg/dl Creatinine (0.6-1.2) mg/dl Est Cr Clr Drug Dosing ml/min Est GFR ( Amer) ml/min Est GFR (Non-Af Amer) ml/min BUN/Creatinine Ratio (10-20) Glucose (70-99) mg/dl POC Glucose 197 H 198 H (70-99) mg/dl Calcium (8.5-10.1) mg/dl Total Bilirubin (0.2-1) mg/dl AST (15-37) U/L ALT (12-78) U/L Alkaline Phosphatase (45-117) U/L Total Protein (6.4-8.2) gm/dl Albumin (3.4-5.0) gm/dl Globulin (2.5-4.0) gm/dl Albumin/Globulin Ratio (0.9-2) PG Care Time/CCT Total # of Minutes Spent Total Time Spent with Patient: Total time spent is greater than 50% in coordination of care (as documented) at patient's floor/unit and/or counseling patient: Coding Level of Care Code 11600 Subseq Hosp Care Lvl 2 Diagnoses Acute UTI N39.0 Cirrhosis K74.60 Diabetes mellitus E11.9 Seizure R56.9 Myoclonic seizure G40.409 Hyperammonemia E72.20 Parkinsonism G20
[2021-02-12] MEDS: LIDOCAINE 5% 1 PATCH TD SCH (17:06)
[2021-02-12] MEDS: ACETAMINOPHEN 500 MG TAB PO SCH (21:02)
[2021-02-12] MEDS: MELATONIN 3 MG TAB PO SCH (21:05)
[2021-02-12] MEDS: FAMOTIDINE 20 MG TAB PO SCH (21:05)
[2021-02-13] MEDS: LEVOTHYROXINE SODIUM 50 MCG TABLET PO SCH (05:43)
[2021-02-13] MEDS: ASCORBIC ACID 500 MG TAB PO SCH (08:01)
[2021-02-13] MEDS: HYDROCORTISONE 10 MG TAB PO SCH ×2 (08:01→14:33)
[2021-02-13] MEDS: rifAXIMin 550 MG TABLET PO SCH ×2 (08:01→20:23)
[2021-02-13] MEDS: CALCIUM CARBONATE 1250MG TAB PO SCH (08:02)
[2021-02-13] MEDS: PRAVASTATIN SOD 20 MG TAB PO SCH (08:02)
[2021-02-13] MEDS: OXcarbazepine 150 MG TABLET PO SCH ×2 (08:02→20:20)
[2021-02-13] MEDS: CHOLECALCIFEROL 1,000 UNITS 25 MCG TAB PO SCH (08:03)
[2021-02-13] MEDS: DICLOFENAC SOD 1% GEL 100 GM TUBE EXT SCH ×4 (08:03→20:25)
[2021-02-13] MEDS: FEXOFENADINE 60 MG TAB PO SCH (08:03)
[2021-02-13] MEDS: ESCITALOPRAM OXALATE 20 MG TAB PO SCH (08:03)
[2021-02-13] MEDS: LACTULOSE SYRUP 20 GM/30 ML UDC PO SCH ×3 (08:04→20:27)
[2021-02-13] MEDS: TOPIRAMATE 100 MG TAB PO SCH ×2 (08:05→20:28)
[2021-02-13] MEDS: rOPINIRole HCL 0.25 MG TABLET PO SCH ×2 (08:06→20:27)
[2021-02-13] MEDS: BENZTROPINE MESYLATE 1 MG TAB PO SCH ×3 (08:06→20:27)
[2021-02-13] MEDS: MAGNESIUM OXIDE 400 MG TAB PO SCH ×2 (08:06→20:28)
[2021-02-13] MEDS: levETIRAcetam 500 MG TAB PO SCH ×2 (08:06→20:20)
[2021-02-13] MEDS: LIDOCAINE 5% 1 PATCH TD SCH (09:13)
[2021-02-13] MEDS: INSULIN GLARGINE SOLOSTAR 100 UNITS/ML 3 ML PEN SC SCH (09:14)
[2021-02-13] MEDS: INSULIN ASPART 100 UNITS/ML 3 ML PEN SC SCH ×4 (09:15→20:54)
[2021-02-13] MEDS: ADVANCED PROBIOTIC 1250 MG CAPSULE PO SCH (11:47)
[2021-02-13] MEDS: CEROVITE ADV FORMULA TAB PO SCH (11:48)
[2021-02-13] MEDS: ZINC SULFATE 220 MG CAPSULE PO SCH (11:49)
[2021-02-13] MEDS: VITAMIN B COMPLEX TAB PO SCH (11:49)
--- NOTE | 2021-02-13 16:16 | Hospitalist Progress Note ---
Date of Service February 13, 2021 Assessment & Plan (1) Acute UTI: Plan: 1. Acute UTI - patient with complaint of foul smelling darker colored urine. UA suggestive of infection. She is afebrile, HD stable. She was altered on admission which quickly resolved without much intervention other than one dose of ceftriaxone-acute encephalopathy may be secondary to underlying infection. Ur cx with Proteus resistance to FQs No sepsis, no fevers -completed 5 day course of Ceftriaxone 2gm IV daily - reports no urinary symptoms 2. Hepatic encephalopathy: Patient with persistently elevated ammonia level. Ammonia =133 on admission and was altered although she improved without much intervention. Uncertain regarding medication compliance prior to arrival. Moving bowels now No need to check NH3 levels while is awake and conversive- mental status has remained stable x 2 weeks -Continue Lactulose daily. Titrate to 2-3 soft BMs/day -Continue rifaximin 550 mg p.o. twice daily 3. Cirrhosis: Patient with liver cirrhosis secondary to STEVE, portal hypertension. Patient follows with gastroenterology, last seen by Dr. Toledo on 10/11/20. Patient had an EGD in June 2020 which showed no varices and mild portal-hypertensive gastropathy. Recent abdominal ultrasound with stable cirrhosis. HCV screening has been completed and is negative. AFP on 03/09/2019 = 2.6. INR =1.3. Elevation of AP and Tbili comparable to prior levels. -LFTs stable from previous; Compensated at this time -Continue Lactulose -Continue Rifaximin 550 mg p.o. twice daily -Continue Pepcid 20mg po qHS - recently started by GI for complaint of nausea -Avoid hepatotoxic agents -Patient to have US in 1 year for HCC surveillance and EGD in 3 years for variceal screening. 4. Seizure disorder: Patient with history of seizure. She follows with neurology, last seen on 10/30/20 - follows for mixed tremor as well as dyskinesia and seizure history, parkinsonism. EEG completed in May 2018 revealed a generalized spike and slow wave abnormality consistent with an underlying generalized seizure disorder. Patient had an MRI brain completed in October 2017 which was unremarkable. Patient failed VNS placement in the past, device was ex planted. Presently on topiramate, Trileptal and Keppra. reports no seizure x 1 year or greater -Continue Ropinirole -Continue topiramate -Continue Trileptal -Continue Keppra -Continue Benztropine for EPS 5. Diabetes: Patient with type 2 diabetes, well controlled, long-term use of insulin. Last hemoglobin A1c=5.6 on 05/23/20. Patient follows with Endocrinology/Diabetes education. Last seen on 01/04/21. -Continue Lantus while here, Tresiba as outpt -ISS -Goal blood sugar 100 - 140 -Recommend annual A1c monitoring -Followup with chemical educator outpatient as instructed Adrenal insufficiency - recently diagnosed at [facility] [place]. -Continue Hydrocortisone bid -Patient follows with Endocrinology - they are questioning the validity of ACTH deficiency diagnosis and are planning to repeat testing to confirm diagnosis. 6. Chronic gait disorder - patient mostly in wheelchair at home. -Fall precautions -Wheelchair and walker as needed -Assistance as needed with transfers and ambulation -Patient has home health nurse -continue home B vitamin PT/OT consults recommend rehab 7. Hypothyroidism TSH here elevated at 7.8, question compliance -Continue Synthroid home dose and repeat TFTs in 4-6 weeks 8. Depression - Chronic. - Asked her nurse on 02/07 about needing a 3S admission - had a long conversation with her on 02/07 and she does not think her depression is worse than its usual and she has had this since she was a kid. She states some days are better than others but not worse then her baseline. She does agree she has a lot of stressors with her own health, 's health, and the process of being placed into long-term care. She denies suicidal ideations/thoughts/plans. She also stated she feels the lemon [place] ice will help her feel better... - reports no SI/plans -Continue Escitalopram -Melatonin qhs 9. Asthma - history of severe persistent asthma. She has seen Pulmonary as well as Allergy/Immunology in the past. Spirometry performed on 04/23/19 with FVC=1.37, 38% predicted. FEV1=1.18, 40% predicted and FEV1/FVC=86%. Suggestive of restrictive process vs obstruction with air trapping. Study limited. Formal PFTs ordered, not yet completed. Presently CTA, adequate oxygenation on room air, no concern for exacerbation at this time. -Continue Breo Ellipta -Continue Albuterol PRN 10. Migraine: Patient with episodic migraines. Well-controlled. -Continue topiramate -give Imitrex prn for migraine relief if needed 11. Tremor: Patient with coarse postural and action tremor. Some may be EPS -Continue topiramate, benztropine 12. Osteoporosis-with h/o multiple fractures from [facility] -continue home calcium and Vit D 13. Right sided jaw pain-occasional, has poor dentition-give prn magic swizzle, prn tylenol 14. Right knee pain-pt occasionally asks for oxycodone for this-reminded her she cannot have opioids due to her cirrhosis as this has caused her encephalopathy in the past. Start lidocaine patch to right knee 15. Right jaw pain-relieved with viscous lidocaine-advise f/u with dentist after discharge Ppx - Low risk for DVT. Code - Full PT/OT-please see 3x/week Case Management consultation for emt intermediate placement. This has been discussed by the PCP. Target process complete and awaiting bed availability. Would be stable for D/C pending arrangements (2) Cirrhosis: (3) Diabetes mellitus: (4) Seizure: (5) Myoclonic seizure: (6) Hyperammonemia: (7) Parkinsonism: Admission and Anticipated Discharge Date Admission Date: January 31, 2021 Subjective Patient reports she had a very large bowel movement today before she got her lactulose. Her jaw pain is still ongoing and she never got the Magic mouthwash. Her was able to bring in her Forteo for her. She has no other complaints. Review of Systems Review of Systems: All systems reviewed & are unremarkable except as noted in HPI & below Physical Exam Constitutional: WD/WN, vitals as above Eyes: + anicteric sclerae Neck: trachea midline, no thyromegaly Respiratory: normal respiratory effort, lungs clear to auscultation Cardiovascular: RRR, no murmur, no edema Chest (Breasts): Chest: normal inspection of chest Gastrointestinal (Abdomen): normal bowel sounds, soft, nontender, no hepatosplenomegaly Musculoskeletal: Extremities: extremities normal to inspection; no cyanosis and no clubbing Skin: no rashes, warm and dry Neurologic: moves all extremities and awake; no focal motor deficits Motor/Sensory: + tremor (choreiform movements of head that stop with distraction) Psychiatric: A+Ox3, euthymic affect Lymphatic: no lymphedema Results & Data Results & Data ([place]) Vital Signs (Past 12 Hours) Vital Signs Temp Pulse Resp BP Pulse Ox 02/13/21 15:07 36.2 C L 60 16 122/78 96 02/13/21 07:25 36.7 C 58 L 16 121/72 95 PG Care Time/CCT Total # of Minutes Spent Total Time Spent with Patient: Total time spent is greater than 50% in coordination of care (as documented) at patient's floor/unit and/or counseling patient: Coding Level of Care Code 25608 Subseq Hosp Care Lvl 1 Diagnoses Acute UTI N39.0 Cirrhosis K74.60 Diabetes mellitus E11.9 Seizure R56.9 Myoclonic seizure G40.409 Hyperammonemia E72.20 Parkinsonism G20
[2021-02-13] MEDS: LIDOCAINE VISCOUS 2% SOLN 60 ML, diphenhydrAMINE Syrup 150 MG, ALUMINUM/MAGNESIUM SUSP ... PO PRN ×2 (16:45→20:17)
[2021-02-13] MEDS: ACETAMINOPHEN 500 MG TAB PO SCH (20:20)
[2021-02-13] MEDS: FAMOTIDINE 20 MG TAB PO SCH (20:23)
[2021-02-13] MEDS: MELATONIN 3 MG TAB PO SCH (20:37)
[2021-02-14] MEDS: LEVOTHYROXINE SODIUM 50 MCG TABLET PO SCH (06:38)
[2021-02-14] MEDS: BENZTROPINE MESYLATE 1 MG TAB PO SCH ×3 (08:40→20:18)
[2021-02-14] MEDS: ASCORBIC ACID 500 MG TAB PO SCH (08:40)
[2021-02-14] MEDS: CALCIUM CARBONATE 1250MG TAB PO SCH (08:40)
[2021-02-14] MEDS: CHOLECALCIFEROL 1,000 UNITS 25 MCG TAB PO SCH (08:41)
[2021-02-14] MEDS: DICLOFENAC SOD 1% GEL 100 GM TUBE EXT SCH ×4 (08:46→20:18)
[2021-02-14] MEDS: ESCITALOPRAM OXALATE 20 MG TAB PO SCH (08:46)
[2021-02-14] MEDS: FEXOFENADINE 60 MG TAB PO SCH (08:47)
[2021-02-14] MEDS: levETIRAcetam 500 MG TAB PO SCH ×2 (08:48→20:20)
[2021-02-14] MEDS: HYDROCORTISONE 10 MG TAB PO SCH ×2 (08:48→16:04)
[2021-02-14] MEDS: MAGNESIUM OXIDE 400 MG TAB PO SCH ×2 (08:50→20:20)
[2021-02-14] MEDS: PRAVASTATIN SOD 20 MG TAB PO SCH (08:51)
[2021-02-14] MEDS: rifAXIMin 550 MG TABLET PO SCH ×2 (08:51→20:22)
[2021-02-14] MEDS: rOPINIRole HCL 0.25 MG TABLET PO SCH ×2 (08:52→20:22)
[2021-02-14] MEDS: TOPIRAMATE 100 MG TAB PO SCH ×2 (08:58→20:23)
[2021-02-14] MEDS: INSULIN GLARGINE SOLOSTAR 100 UNITS/ML 3 ML PEN SC SCH (08:59)
[2021-02-14] MEDS: INSULIN ASPART 100 UNITS/ML 3 ML PEN SC SCH ×4 (09:23→20:46)
[2021-02-14] MEDS: LACTULOSE SYRUP 20 GM/30 ML UDC PO SCH ×3 (09:38→20:53)
[2021-02-14] MEDS: LIDOCAINE 5% 1 PATCH TD SCH (09:40)
[2021-02-14] MEDS: OXcarbazepine 150 MG TABLET PO SCH ×2 (11:29→20:21)
[2021-02-14] MEDS: CEROVITE ADV FORMULA TAB PO SCH (13:59)
[2021-02-14] MEDS: ADVANCED PROBIOTIC 1250 MG CAPSULE PO SCH (13:59)
[2021-02-14] MEDS: VITAMIN B COMPLEX TAB PO SCH (13:59)
[2021-02-14] MEDS: ZINC SULFATE 220 MG CAPSULE PO SCH (14:00)
--- NOTE | 2021-02-14 18:38 | Hospitalist Progress Note ---
Date of Service February 14, 2021 Assessment & Plan (1) Acute UTI: Plan: 1. Acute UTI - patient with complaint of foul smelling darker colored urine. UA suggestive of infection. She is afebrile, HD stable. She was altered on admission which quickly resolved without much intervention other than one dose of ceftriaxone-acute encephalopathy may be secondary to underlying infection. Ur cx with Proteus resistance to FQs No sepsis, no fevers -completed 5 day course of Ceftriaxone 2gm IV daily - reports no urinary symptoms 2. Hepatic encephalopathy: Patient with persistently elevated ammonia level. Ammonia =133 on admission and was altered although she improved without much intervention. Uncertain regarding medication compliance prior to arrival. Moving bowels now No need to check NH3 levels while is awake and conversive- mental status has remained stable x 2 weeks -Continue Lactulose daily. Titrate to 2-3 soft BMs/day -Continue rifaximin 550 mg p.o. twice daily 3. Cirrhosis: Patient with liver cirrhosis secondary to STEVE, portal hypertension. Patient follows with gastroenterology, last seen by Dr. oTledo on 10/11/20. Patient had an EGD in June 2020 which showed no varices and mild portal-hypertensive gastropathy. Recent abdominal ultrasound with stable cirrhosis. HCV screening has been completed and is negative. AFP on 03/09/2019 = 2.6. INR =1.3. Elevation of AP and Tbili comparable to prior levels. -LFTs stable from previous; Compensated at this time -Continue Lactulose -Continue Rifaximin 550 mg p.o. twice daily -Continue Pepcid 20mg po qHS - recently started by GI for complaint of nausea -Avoid hepatotoxic agents -Patient to have US in 1 year for HCC surveillance and EGD in 3 years for variceal screening. 4. Seizure disorder: Patient with history of seizure. She follows with neurology, last seen on 10/30/20 - follows for mixed tremor as well as dyskinesia and seizure history, parkinsonism. EEG completed in May 2018 revealed a generalized spike and slow wave abnormality consistent with an underlying generalized seizure disorder. Patient had an MRI brain completed in October 2017 which was unremarkable. Patient failed VNS placement in the past, device was explanted. Presently on topiramate, Trileptal and Keppra. reports no seizure x 1 year or greater -Continue Ropinirole -Continue topiramate -Continue Trileptal -Continue Keppra -Continue Benztropine for EPS 5. Diabetes: Patient with type 2 diabetes, well controlled, long-term use of insulin. Last hemoglobin A1c=5.6 on 05/23/20. Patient follows with Endocrinology/Diabetes education. Last seen on 01/04/21. -Continue Lantus while here, Tresiba as outpt -ISS -Goal blood sugar 100 - 140 -Recommend annual A1c monitoring -Followup with cosmetology educator outpatient as instructed Adrenal insufficiency - recently diagnosed at [facility] [place]. -Continue Hydrocortisone bid -Patient follows with Endocrinology - they are questioning the validity of ACTH deficiency diagnosis and are planning to repeat testing to confirm diagnosis. 6. Chronic gait disorder - patient mostly in wheelchair at home. -Fall precautions -Wheelchair and walker as needed -Assistance as needed with transfers and ambulation -Patient has home health nurse -continue home B vitamin PT/OT consults recommend rehab 7. Hypothyroidism TSH here elevated at 7.8, question compliance -Continue Synthroid home dose and repeat TFTs in 4-6 weeks 8. Depression - Chronic. - Asked her nurse on 02/07 about needing a 3S admission - had a long conversation with her on 02/07 and she does not think her depression is worse than its usual and she has had this since she was a kid. She states some days are better than others but not worse then her baseline. She does agree she has a lot of stressors with her own health, 's health, and the process of being placed into long-term care. She denies suicidal ideations/thoughts/plans. She also stated she feels the lemon [place] ice will help her feel better... - reports no SI/plans -Continue Escitalopram -Melatonin qhs 9. Asthma - history of severe persistent asthma. She has seen Pulmonary as well as Allergy/Immunology in the past. Spirometry performed on 04/23/19 with FVC=1.37, 38% predicted. FEV1=1.18, 40% predicted and FEV1/FVC=86%. Suggestive of restrictive process vs obstruction with air trapping. Study limited. Formal PFTs ordered, not yet completed. Presently CTA, adequate oxygenation on room air, no concern for exacerbation at this time. -Continue Breo Ellipta -Continue Albuterol PRN 10. Migraine: Patient with episodic migraines. Well-controlled. -Continue topiramate -give triptan prn for migraine relief if needed 11. Tremor: Patient with coarse postural and action tremor. Some may be EPS -Continue topiramate, benztropine 12. Osteoporosis-with h/o multiple fractures from falls - brought in Forteo from home -continue home calcium and Vit D 13. Right sided jaw pain-occasional, has poor dentition-give prn magic swizzle, prn tylenol 14. Right knee pain-pt occasionally asks for oxycodone for this-reminded her she cannot have opioids due to her cirrhosis as this has caused her encephalopathy in the past. Start lidocaine patch to right knee 15. Right jaw pain-relieved with viscous lidocaine-advise f/u with dentist after discharge Ppx - Low risk for DVT. Code - Full PT/OT-please see 3x/week Case Management consultation for long distance operator placement. This has been discussed by the PCP. Target process complete and awaiting bed availability. Would be stable for D/C pending arrangements (2) Cirrhosis: (3) Diabetes mellitus: (4) Seizure: (5) Myoclonic seizure: (6) Hyperammonemia: (7) Parkinsonism: Admission and Anticipated Discharge Date Admission Date: January 31, 2021 Subjective Wants to take a shower. Otherwise has her migraine med and Forteo from home but needs them to be ordered Review of Systems Review of Systems: All systems reviewed & are unremarkable except as noted in HPI & below Physical Exam Constitutional: WD/WN, vitals as above Eyes: + anicteric sclerae ENMT: external ear and nose normal, oropharynx normal Neck: trachea midline, no thyromegaly Respiratory: normal respiratory effort, lungs clear to auscultation Cardiovascular: RRR, no murmur, no edema Chest (Breasts): Chest: normal inspection of chest Gastrointestinal (Abdomen): normal bowel sounds, soft, nontender, no hepatosplenomegaly Musculoskeletal: Extremities: extremities normal to inspection; no cyanosis and no clubbing Skin: no rashes, warm and dry Neurologic: moves all extremities and awake; no focal motor deficits Motor/Sensory: + tremor (choreiform movements of head that stop with distraction) Psychiatric: A+Ox3, euthymic affect Lymphatic: no lymphedema Results & Data Results & Data ([facility]) Vital Signs (Past 12 Hours) Vital Signs Temp Pulse Resp BP Pulse Ox 02/14/21 15:16 36.7 C 58 L 16 116/59 L 96 02/14/21 07:18 36.7 C 56 L 16 110/57 L 98 PG Care Time/CCT Total # of Minutes Spent Total Time Spent with Patient: Total time spent is greater than 50% in coordination of care (as documented) at patient's floor/unit and/or counseling patient: Coding Level of Care Code 97920 Subseq Hosp Care Lvl 1 Diagnoses Acute UTI N39.0 Cirrhosis K74.60 Diabetes mellitus E11.9 Seizure R56.9 Myoclonic seizure G40.409 Hyperammonemia E72.20 Parkinsonism G20
[2021-02-14] MEDS: ACETAMINOPHEN 500 MG TAB PO SCH (20:17)
[2021-02-14] MEDS: FAMOTIDINE 20 MG TAB PO SCH (20:19)
[2021-02-14] MEDS: PROMETHAZINE HCL 25 MG TAB PO PRN (20:27)
[2021-02-14] MEDS: MELATONIN 3 MG TAB PO SCH (20:53)
[2021-02-15] MEDS: LEVOTHYROXINE SODIUM 50 MCG TABLET PO SCH (05:40)
[2021-02-15] MEDS: ASCORBIC ACID 500 MG TAB PO SCH (09:07)
[2021-02-15] MEDS: CHOLECALCIFEROL 1,000 UNITS 25 MCG TAB PO SCH (09:07)
[2021-02-15] MEDS: CALCIUM CARBONATE 1250MG TAB PO SCH (09:07)
[2021-02-15] MEDS: FEXOFENADINE 60 MG TAB PO SCH (09:07)
[2021-02-15] MEDS: HYDROCORTISONE 10 MG TAB PO SCH ×2 (09:07→16:56)
[2021-02-15] MEDS: ESCITALOPRAM OXALATE 20 MG TAB PO SCH (09:08)
[2021-02-15] MEDS: PRAVASTATIN SOD 20 MG TAB PO SCH (09:08)
[2021-02-15] MEDS: MAGNESIUM OXIDE 400 MG TAB PO SCH ×2 (09:08→20:10)
[2021-02-15] MEDS: BENZTROPINE MESYLATE 1 MG TAB PO SCH ×3 (09:08→20:10)
[2021-02-15] MEDS: OXcarbazepine 150 MG TABLET PO SCH ×2 (09:08→20:12)
[2021-02-15] MEDS: levETIRAcetam 500 MG TAB PO SCH ×2 (09:08→20:13)
[2021-02-15] MEDS: rOPINIRole HCL 0.25 MG TABLET PO SCH ×2 (09:08→20:13)
[2021-02-15] MEDS: TOPIRAMATE 100 MG TAB PO SCH ×2 (09:09→20:11)
[2021-02-15] MEDS: LACTULOSE SYRUP 20 GM/30 ML UDC PO SCH ×3 (09:09→20:07)
[2021-02-15] MEDS: rifAXIMin 550 MG TABLET PO SCH ×2 (09:09→20:09)
[2021-02-15] MEDS: INSULIN GLARGINE SOLOSTAR 100 UNITS/ML 3 ML PEN SC SCH (09:10)
[2021-02-15] MEDS: INSULIN ASPART 100 UNITS/ML 3 ML PEN SC SCH ×4 (09:15→20:21)
[2021-02-15] MEDS: LIDOCAINE 5% 1 PATCH TD SCH (09:15)
[2021-02-15] MEDS: DICLOFENAC SOD 1% GEL 100 GM TUBE EXT SCH ×4 (09:15→20:09)
[2021-02-15] MEDS: CEROVITE ADV FORMULA TAB PO SCH (13:10)
[2021-02-15] MEDS: VITAMIN B COMPLEX TAB PO SCH (13:10)
[2021-02-15] MEDS: ADVANCED PROBIOTIC 1250 MG CAPSULE PO SCH (13:10)
[2021-02-15] MEDS: ZINC SULFATE 220 MG CAPSULE PO SCH (13:10)
--- NOTE | 2021-02-15 18:09 | Hospitalist Progress Note ---
Date of Service February 15, 2021 Assessment & Plan (1) Acute UTI: Plan: 1. Acute UTI - patient with complaint of foul smelling darker colored urine. UA suggestive of infection. She is afebrile, HD stable. She was altered on admission which quickly resolved without much intervention other than one dose of ceftriaxone-acute encephalopathy may be secondary to underlying infection. Ur cx with Proteus resistance to FQs No sepsis, no fevers -completed 5 day course of Ceftriaxone 2gm IV daily - reports no urinary symptoms 2. Hepatic encephalopathy: Patient with persistently elevated ammonia level. Ammonia =133 on admission and was altered although she improved without much intervention. Uncertain regarding medication compliance prior to arrival. Moving bowels now No need to check NH3 levels while is awake and conversive- mental status has remained stable x 2 weeks -Continue Lactulose daily. Titrate to 2-3 soft BMs/day -Continue rifaximin 550 mg p.o. twice daily 3. Cirrhosis: Patient with liver cirrhosis secondary to STEVE, portal hypertension. Patient follows with gastroenterology, last seen by Dr. Toledo on 10/11/20. Patient had an EGD in June 2020 which showed no varices and mild portal-hypertensive gastropathy. Recent abdominal ultrasound with stable cirrhosis. HCV screening has been completed and is negative. AFP on 03/09/2019 = 2.6. INR =1.3. Elevation of AP and Tbili comparable to prior levels. -LFTs stable from previous; Compensated at this time -Continue Lactulose -Continue Rifaximin 550 mg p.o. twice daily -Continue Pepcid 20mg po qHS - recently started by GI for complaint of nausea -Avoid hepatotoxic agents -Patient to have US in 1 year for HCC surveillance and EGD in 3 years for variceal screening. 4. Seizure disorder: Patient with history of seizure. She follows with neurology, last seen on 10/30/20 - follows for mixed tremor as well as dyskinesia and seizure history, parkinsonism. EEG completed in May 2018 revealed a generalized spike and slow wave abnormality consistent with an underlying generalized seizure disorder. Patient had an MRI brain completed in October 2017 which was unremarkable. Patient failed VNS placement in the past, device was explanted. Presently on topiramate, Trileptal and Keppra. reports no seizure x 1 year or greater -Continue Ropinirole -Continue topiramate -Continue Trileptal -Continue Keppra -Continue Benztropine for EPS 5. Diabetes: Patient with type 2 diabetes, well controlled, long-term use of insulin. Last hemoglobin A1c=5.6 on 05/23/20. Patient follows with Endocrinology/Diabetes education. Last seen on 01/04/21. -Continue Lantus while here, Tresiba as outpt -ISS -Goal blood sugar 100 - 140 -Recommend annual A1c monitoring -Followup with visual educator outpatient as instructed Adrenal insufficiency - recently diagnosed at [facility] [place]. -Continue Hydrocortisone bid -Patient follows with Endocrinology - they are questioning the validity of ACTH deficiency diagnosis and are planning to repeat testing to confirm diagnosis. 6. Chronic gait disorder - patient mostly in wheelchair at home. -Fall precautions -Wheelchair and walker as needed -Assistance as needed with transfers and ambulation -Patient has home health nurse -continue home B vitamin PT/OT consults recommend rehab 7. Hypothyroidism TSH here elevated at 7.8, question compliance -Continue Synthroid home dose and repeat TFTs in 4-6 weeks 8. Depression - Chronic. - Asked her nurse on 02/07 about needing a 3S admission - had a long conversation with her on 02/07 and she does not think her depression is worse than its usual and she has had this since she was a kid. She states some days are better than others but not worse then her baseline. She does agree she has a lot of stressors with her own health, 's health, and the process of being placed into long-term care. She denies suicidal ideations/thoughts/plans. She also stated she feels the lemon [place] ice will help her feel better... - reports no SI/plans -Continue Escitalopram -Melatonin qhs 9. Asthma - history of severe persistent asthma. She has seen Pulmonary as well as Allergy/Immunology in the past. Spirometry performed on 04/23/19 with FVC=1.37, 38% predicted. FEV1=1.18, 40% predicted and FEV1/FVC=86%. Suggestive of restrictive process vs obstruction with air trapping. Study limited. Formal PFTs ordered, not yet completed. Presently CTA, adequate oxygenation on room air, no concern for exacerbation at this time. -Continue Breo Ellipta -Continue Albuterol PRN 10. Migraine: Patient with episodic migraines. Well-controlled. -Continue topiramate -give triptan prn for migraine relief if needed 11. Tremor: Patient with coarse postural and action tremor. Some may be EPS -Continue topiramate, benztropine 12. Osteoporosis-with h/o multiple fractures from falls - brought in [facility] from home -continue home calcium and Vit D 13. Right sided jaw pain-occasional, has poor dentition-give prn magic swizzle, prn tylenol 14. Right knee pain-pt occasionally asks for oxycodone for this-reminded her she cannot have opioids due to her cirrhosis as this has caused her encephalopathy in the past. Start lidocaine patch to right knee 15. Right jaw pain-relieved with viscous lidocaine-advise f/u with dentist after discharge 16. Vaginal itching/burning-start clotrimazole PV hs x 7 days Ppx - Low risk for DVT. Code - Full PT/OT-please see 3x/week Case Management consultation for remote computer terminal operator placement. This has been discussed by the PCP. Target process complete and awaiting bed availability. Would be stable for D/C pending arrangements (2) Cirrhosis: (3) Diabetes mellitus: (4) Seizure: (5) Myoclonic seizure: (6) Hyperammonemia: (7) Parkinsonism: Admission and Anticipated Discharge Date Admission Date: January 31, 2021 Subjective Pt c/o vaginal itching and burning. Wonders if she has a UTI. Is OOB to chair and eating dinner Review of Systems Review of Systems: All systems reviewed & are unremarkable except as noted in HPI & below Physical Exam Constitutional: WD/WN, vitals as above Eyes: + anicteric sclerae Neck: trachea midline, no thyromegaly Neurologic: moves all extremities and awake Motor/Sensory: + tremor (choreiform movements of head that stop with distraction) Psychiatric: A+Ox3, euthymic affect Lymphatic: no lymphedema Results & Data Results & Data ([facility]) Vital Signs (Past 12 Hours) Vital Signs Temp Pulse Resp BP Pulse Ox 02/15/21 15:16 36.9 C 70 17 119/57 L 98 02/15/21 08:01 36.3 C L 106 H 17 113/56 L 93 PG Care Time/CCT Total # of Minutes Spent Total Time Spent with Patient: Total time spent is greater than 50% in coordination of care (as documented) at patient's floor/unit and/or counseling patient: Coding Level of Care Code 33137 Subseq Hosp Care Lvl 1 Diagnoses Acute UTI N39.0 Cirrhosis K74.60 Diabetes mellitus E11.9 Seizure R56.9 Myoclonic seizure G40.409 Hyperammonemia E72.20 Parkinsonism G20
[2021-02-15] MEDS: ACETAMINOPHEN 500 MG TAB PO SCH (20:11)
[2021-02-15] MEDS: FAMOTIDINE 20 MG TAB PO SCH (20:14)
[2021-02-15] MEDS: MELATONIN 3 MG TAB PO SCH (20:14)
[2021-02-15] MEDS: CLOTRIMAZOLE VAGINAL CR 7 APPLN/45 GM TUBE PV SCH (20:26)
[2021-02-16] MEDS: LIDOCAINE VISCOUS 2% SOLN 60 ML, diphenhydrAMINE Syrup 150 MG, ALUMINUM/MAGNESIUM SUSP ... PO PRN (03:42)
[2021-02-16] MEDS: LEVOTHYROXINE SODIUM 50 MCG TABLET PO SCH (03:53)
[2021-02-16] MEDS: TOPIRAMATE 100 MG TAB PO SCH ×2 (08:56→21:30)
[2021-02-16] MEDS: HYDROCORTISONE 10 MG TAB PO SCH ×2 (08:56→13:11)
[2021-02-16] MEDS: FEXOFENADINE 60 MG TAB PO SCH (08:56)
[2021-02-16] MEDS: BENZTROPINE MESYLATE 1 MG TAB PO SCH ×3 (08:56→21:29)
[2021-02-16] MEDS: CALCIUM CARBONATE 1250MG TAB PO SCH (08:57)
[2021-02-16] MEDS: CHOLECALCIFEROL 1,000 UNITS 25 MCG TAB PO SCH (08:57)
[2021-02-16] MEDS: MAGNESIUM OXIDE 400 MG TAB PO SCH ×2 (08:57→21:29)
[2021-02-16] MEDS: rifAXIMin 550 MG TABLET PO SCH ×2 (08:57→21:28)
[2021-02-16] MEDS: rOPINIRole HCL 0.25 MG TABLET PO SCH ×2 (08:58→21:31)
[2021-02-16] MEDS: LACTULOSE SYRUP 20 GM/30 ML UDC PO SCH ×3 (08:58→21:17)
[2021-02-16] MEDS: levETIRAcetam 500 MG TAB PO SCH ×2 (08:59→21:28)
[2021-02-16] MEDS: PRAVASTATIN SOD 20 MG TAB PO SCH (08:59)
[2021-02-16] MEDS: ESCITALOPRAM OXALATE 20 MG TAB PO SCH (08:59)
[2021-02-16] MEDS: OXcarbazepine 150 MG TABLET PO SCH ×2 (08:59→21:31)
[2021-02-16] MEDS: ASCORBIC ACID 500 MG TAB PO SCH (09:00)
[2021-02-16] MEDS: LIDOCAINE 5% 1 PATCH TD SCH (09:03)
[2021-02-16] MEDS: DICLOFENAC SOD 1% GEL 100 GM TUBE EXT SCH ×4 (09:12→21:37)
[2021-02-16] MEDS: INSULIN GLARGINE SOLOSTAR 100 UNITS/ML 3 ML PEN SC SCH (09:12)
[2021-02-16] MEDS: INSULIN ASPART 100 UNITS/ML 3 ML PEN SC SCH ×4 (09:15→21:33)
[2021-02-16] MEDS: CEROVITE ADV FORMULA TAB PO SCH (12:27)
[2021-02-16] MEDS: ZINC SULFATE 220 MG CAPSULE PO SCH (12:27)
[2021-02-16] MEDS: ADVANCED PROBIOTIC 1250 MG CAPSULE PO SCH (12:27)
[2021-02-16] MEDS: VITAMIN B COMPLEX TAB PO SCH (13:11)
[2021-02-16] MEDS ORDERED: Nursing to Pharmacy Communication SCH (15:00)
--- NOTE | 2021-02-16 15:01 | Hospitalist Progress Note ---
Date of Service February 16, 2021 Assessment & Plan (1) Acute UTI: Plan: 1. Acute UTI - patient with complaint of foul smelling darker colored urine. UA suggestive of infection. She is afebrile, HD stable. She was altered on admission which quickly resolved without much intervention other than one dose of ceftriaxone-acute encephalopathy may be secondary to underlying infection. Ur cx with Proteus resistance to FQs No sepsis, no fevers -completed 5 day course of Ceftriaxone 2gm IV daily - reports no urinary symptoms 2. Hepatic encephalopathy: Patient with persistently elevated ammonia level. Ammonia =133 on admission and was altered although she improved without much intervention. Uncertain regarding medication compliance prior to arrival. Moving bowels now No need to check NH3 levels while is awake and conversive- mental status has remained stable x 2 weeks -Continue Lactulose daily. Titrate to 2-3 soft BMs/day -Continue rifaximin 550 mg p.o. twice daily 3. Cirrhosis: Patient with liver cirrhosis secondary to STEVE, portal hypertension. Patient follows with gastroenterology, last seen by Dr. Toledo on 10/11/20. Patient had an EGD in June 2020 which showed no varices and mild portal-hypertensive gastropathy. Recent abdominal ultrasound with stable cirrhosis. HCV screening has been completed and is negative. AFP on 03/09/2019 = 2.6. INR =1.3. Elevation of AP and Tbili comparable to prior levels. -LFTs stable from previous; Compensated at this time -Continue Lactulose -Continue Rifaximin 550 mg p.o. twice daily -Continue Pepcid 20mg po qHS - recently started by GI for complaint of nausea -Avoid hepatotoxic agents -Patient to have US in 1 year for HCC surveillance and EGD in 3 years for variceal screening. 4. Seizure disorder: Patient with history of seizure. She follows with neurology, last seen on 10/30/20 - follows for mixed tremor as well as dyskinesia and seizure history, parkinsonism. EEG completed in May 2018 revealed a generalized spike and slow wave abnormality consistent with an underlying generalized seizure disorder. Patient had an MRI brain completed in October 2017 which was unremarkable. Patient failed VNS placement in the past, device was explanted. Presently on topiramate, Trileptal and Keppra. reports no seizure x 1 year or greater -Continue Ropinirole -Continue topiramate -Continue Trileptal -Continue Keppra -Continue Benztropine for EPS 5. Diabetes: Patient with type 2 diabetes, well controlled, long-term use of insulin. Last hemoglobin A1c=5.6 on 05/23/20. Patient follows with Endocrinology/Diabetes education. Last seen on 01/04/21. -Continue Lantus while here, Tresiba as outpt -ISS -Goal blood sugar 100 - 140 -Recommend annual A1c monitoring -Followup with plumbing installer outpatient as instructed Adrenal insufficiency - recently diagnosed at [facility] [place]. -Continue Hydrocortisone bid -Patient follows with Endocrinology - they are questioning the validity of ACTH deficiency diagnosis and are planning to repeat testing to confirm diagnosis. 6. Chronic gait disorder - patient mostly in wheelchair at home. -Fall precautions -Wheelchair and walker as needed -Assistance as needed with transfers and ambulation -Patient has home health nurse -continue home B vitamin PT/OT consults recommend rehab 7. Hypothyroidism TSH here elevated at 7.8, question compliance -Continue Synthroid home dose and repeat TFTs in 4-6 weeks 8. Depression - Chronic. - Asked her nurse on 02/07 about needing a 3S admission - had a long conversation with her on 02/07 and she does not think her depression is worse than its usual and she has had this since she was a kid. She states some days are better than others but not worse then her baseline. She does agree she has a lot of stressors with her own health, 's health, and the process of being placed into long-term care. She denies suicidal ideations/thoughts/plans. She also stated she feels the lemon [place] ice will help her feel better... - reports no SI/plans -Continue Escitalopram -Melatonin qhs 9. Asthma - history of severe persistent asthma. She has seen Pulmonary as well as Allergy/Immunology in the past. Spirometry performed on 04/23/19 with FVC=1.37, 38% predicted. FEV1=1.18, 40% predicted and FEV1/FVC=86%. Suggestive of restrictive process vs obstruction with air trapping. Study limited. Formal PFTs ordered, not yet completed. Presently CTA, adequate oxygenation on room air, no concern for exacerbation at this time. -Continue Breo Ellipta -Continue Albuterol PRN 10. Migraine: Patient with episodic migraines. Well-controlled. -Continue topiramate -give triptan prn for migraine relief if needed 11. Tremor: Patient with coarse postural and action tremor. Some may be EPS -Continue topiramate, benztropine 12. Osteoporosis-with h/o multiple fractures from falls - [facility] -continue home calcium and Vit D 13. Right sided jaw pain-occasional, has poor dentition-give prn magic swizzle, prn tylenol 14. Right knee pain-pt occasionally asks for oxycodone for this-reminded her she cannot have opioids due to her cirrhosis as this has caused her encephalopathy in the past. Start lidocaine patch to right knee 15. Right jaw pain-relieved with viscous lidocaine-advise f/u with dentist after discharge 16. Vaginal itching/burning-start clotrimazole PV hs x 7 days-last day of tx 02/21 Ppx - Low risk for DVT. Code - Full PT/OT-please see 3x/week Case Management consultation for termite technician placement. This has been discussed by the PCP. Target process complete and awaiting bed availability. Would be stable for D/C pending arrangements (2) Cirrhosis: (3) Diabetes mellitus: (4) Seizure: (5) Myoclonic seizure: (6) Hyperammonemia: (7) Parkinsonism: Admission and Anticipated Discharge Date Admission Date: January 31, 2021 Subjective Pt does not like the minced and moist diet, would like it changed back. Reports still not getting her Forteo Review of Systems Review of Systems: All systems reviewed & are unremarkable except as noted in HPI & below Physical Exam Constitutional: WD/WN, vitals as above Eyes: + anicteric sclerae Neck: trachea midline, no thyromegaly Skin: no rashes, warm and dry Neurologic: moves all extremities and awake; no focal motor deficits Motor/Sensory: + tremor (choreiform movements of head that stop with distraction) Psychiatric: A+Ox3, euthymic affect Lymphatic: no lymphedema Results & Data Results & Data ([facility]) Vital Signs (Past 12 Hours) Vital Signs Temp Pulse Resp BP Pulse Ox 02/16/21 07:47 36.9 C 59 L 17 125/71 99 PG Care Time/CCT Total # of Minutes Spent Total Time Spent with Patient: Total time spent is greater than 50% in coordination of care (as documented) at patient's floor/unit and/or counseling patient: Coding Level of Care Code 52747 Subseq Hosp Care Lvl 1 Diagnoses Acute UTI N39.0 Cirrhosis K74.60 Diabetes mellitus E11.9 Seizure R56.9 Myoclonic seizure G40.409 Hyperammonemia E72.20 Parkinsonism G20
[2021-02-16] MEDS: CLOTRIMAZOLE VAGINAL CR 7 APPLN/45 GM TUBE PV SCH (21:24)
[2021-02-16] MEDS: ACETAMINOPHEN 500 MG TAB PO SCH (21:26)
[2021-02-16] MEDS: MELATONIN 3 MG TAB PO SCH (21:32)
[2021-02-16] MEDS: FAMOTIDINE 20 MG TAB PO SCH (21:33)
[2021-02-17] MEDS: LEVOTHYROXINE SODIUM 50 MCG TABLET PO SCH (06:07)
[2021-02-17] MEDS: INSULIN GLARGINE SOLOSTAR 100 UNITS/ML 3 ML PEN SC SCH (09:37)
[2021-02-17] MEDS: INSULIN ASPART 100 UNITS/ML 3 ML PEN SC SCH ×4 (09:38→20:01)
[2021-02-17] MEDS: LACTULOSE SYRUP 20 GM/30 ML UDC PO SCH ×3 (09:41→19:51)
[2021-02-17] MEDS: DICLOFENAC SOD 1% GEL 100 GM TUBE EXT SCH ×4 (09:42→19:51)
[2021-02-17] MEDS: MAGNESIUM OXIDE 400 MG TAB PO SCH ×2 (09:42→19:48)
[2021-02-17] MEDS: CALCIUM CARBONATE 1250MG TAB PO SCH (09:42)
[2021-02-17] MEDS: FEXOFENADINE 60 MG TAB PO SCH (09:42)
[2021-02-17] MEDS: ASCORBIC ACID 500 MG TAB PO SCH (09:42)
[2021-02-17] MEDS: HYDROCORTISONE 10 MG TAB PO SCH ×2 (09:42→15:15)
[2021-02-17] MEDS: ESCITALOPRAM OXALATE 20 MG TAB PO SCH (09:43)
[2021-02-17] MEDS: PRAVASTATIN SOD 20 MG TAB PO SCH (09:43)
[2021-02-17] MEDS: CHOLECALCIFEROL 1,000 UNITS 25 MCG TAB PO SCH (09:43)
[2021-02-17] MEDS: OXcarbazepine 150 MG TABLET PO SCH ×2 (09:43→19:49)
[2021-02-17] MEDS: rOPINIRole HCL 0.25 MG TABLET PO SCH ×2 (09:44→19:49)
[2021-02-17] MEDS: BENZTROPINE MESYLATE 1 MG TAB PO SCH ×3 (09:44→19:50)
[2021-02-17] MEDS: TOPIRAMATE 100 MG TAB PO SCH ×2 (09:44→19:50)
[2021-02-17] MEDS: levETIRAcetam 500 MG TAB PO SCH ×2 (09:45→19:48)
[2021-02-17] MEDS: LIDOCAINE 5% 1 PATCH TD SCH (09:45)
[2021-02-17] MEDS: rifAXIMin 550 MG TABLET PO SCH ×2 (09:45→19:51)
[2021-02-17] MEDS: VITAMIN B COMPLEX TAB PO SCH (11:34)
[2021-02-17] MEDS: ADVANCED PROBIOTIC 1250 MG CAPSULE PO SCH (11:34)
[2021-02-17] MEDS: ZINC SULFATE 220 MG CAPSULE PO SCH (11:34)
[2021-02-17] MEDS: CEROVITE ADV FORMULA TAB PO SCH (11:34)
--- NOTE | 2021-02-17 12:38 | Hospitalist Progress Note ---
Date of Service February 17, 2021 Assessment & Plan (1) Acute UTI: Plan: 1. Acute UTI - patient with complaint of foul smelling darker colored urine. UA suggestive of infection. She is afebrile, HD stable. She was altered on admission which quickly resolved without much intervention other than one dose of ceftriaxone-acute encephalopathy may be secondary to underlying infection. Ur cx with Proteus resistance to FQs No sepsis, no fevers -completed 5 day course of Ceftriaxone 2gm IV daily - reports no urinary symptoms 2. Hepatic encephalopathy: Patient with persistently elevated ammonia level. Ammonia =133 on admission and was altered although she improved without much intervention. Uncertain regarding medication compliance prior to arrival. Moving bowels now No need to check NH3 levels while is awake and conversive- mental status has remained stable x 2 weeks -Continue Lactulose daily. Titrate to 2-3 soft BMs/day -Continue rifaximin 550 mg p.o. twice daily 3. Cirrhosis: Patient with liver cirrhosis secondary to STEVE, portal hypertension. Patient follows with gastroenterology, last seen by Dr. Toledo on 10/11/20. Patient had an EGD in June 2020 which showed no varices and mild portal-hypertensive gastropathy. Recent abdominal ultrasound with stable cirrhosis. HCV screening has been completed and is negative. AFP on 03/09/2019 = 2.6. INR =1.3. Elevation of AP and Tbili comparable to prior levels. -LFTs stable from previous; Compensated at this time -Continue Lactulose -Continue Rifaximin 550 mg p.o. twice daily -Continue Pepcid 20mg po qHS - recently started by GI for complaint of nausea -Avoid hepatotoxic agents -Patient to have US in 1 year for HCC surveillance and EGD in 3 years for variceal screening. 4. Seizure disorder: Patient with history of seizure. She follows with neurology, last seen on 10/30/20 - follows for mixed tremor as well as dyskinesia and seizure history, parkinsonism. EEG completed in May 2018 revealed a generalized spike and slow wave abnormality consistent with an underlying generalized seizure disorder. Patient had an MRI brain completed in October 2017 which was unremarkable. Patient failed VNS placement in the past, device was explanted. Presently on topiramate, Trileptal and Keppra. reports no seizure x 1 year or greater -Continue Ropinirole -Continue topiramate -Continue Trileptal -Continue Keppra -Continue Benztropine for EPS 5. Diabetes: Patient with type 2 diabetes, well controlled, long-term use of insulin. Last hemoglobin A1c=5.6 on 05/23/20. Patient follows with Endocrinology/Diabetes education. Last seen on 01/04/21. -Continue Lantus while here, Tresiba as outpt -ISS -Goal blood sugar 100 - 140 -Recommend annual A1c monitoring -Followup with family living educator outpatient as instructed Adrenal insufficiency - recently diagnosed at [facility] [place] -Continue Hydrocortisone bid -Patient follows with Endocrinology - they are questioning the validity of ACTH deficiency diagnosis and are planning to repeat testing to confirm diagnosis. 6. Chronic gait disorder - patient mostly in wheelchair at home. -Fall precautions -Wheelchair and walker as needed -Assistance as needed with transfers and ambulation -Patient has home health nurse -continue home B vitamin PT/OT consults recommend rehab 7. Hypothyroidism TSH here elevated at 7.8, question compliance -Continue Synthroid home dose and repeat TFTs in 4-6 weeks 8. Depression - Chronic. - Asked her nurse on 02/07 about needing a 3S admission - had a long conversation with her on 02/07 and she does not think her depression is worse than its usual and she has had this since she was a kid. She states some days are better than others but not worse then her baseline. She does agree she has a lot of stressors with her own health, 's health, and the process of being placed into long-term care. She denies suicidal ideations/thoughts/plans. She also stated she feels the lemon [place] ice will help her feel better... - reports no SI/plans -Continue Escitalopram -Melatonin qhs 9. Asthma - history of severe persistent asthma. She has seen Pulmonary as well as Allergy/Immunology in the past. Spirometry performed on 04/23/19 with FVC=1.37, 38% predicted. FEV1=1.18, 40% predicted and FEV1/FVC=86%. Suggestive of restrictive process vs obstruction with air trapping. Study limited. Formal PFTs ordered, not yet completed. Presently CTA, adequate oxygenation on room air, no concern for exacerbation at this time. -Continue Breo Ellipta -Continue Albuterol PRN 10. Migraine: Patient with episodic migraines. Well-controlled. -Continue topiramate -give triptan prn for migraine relief if needed 11. Tremor: Patient with coarse postural and action tremor. Some may be EPS -Continue topiramate, benztropine 12. Osteoporosis-with h/o multiple fractures from falls - brought in [facility] from home -continue home calcium and Vit D 13. Right sided jaw pain-occasional, has poor dentition-give prn magic swizzle, prn tylenol 14. Right knee pain-pt occasionally asks for oxycodone for this-reminded her she cannot have opioids due to her cirrhosis as this has caused her encephalopathy in the past. Start lidocaine patch to right knee 15. Right jaw pain-relieved with viscous lidocaine-advise f/u with dentist after discharge 16. Vaginal itching/burning-improved--> cont clotrimazole PV hs x 7 days-last day of tx 02/21 Ppx - Low risk for DVT. Code - Full PT/OT-please see 3x/week Case Management consultation for exterminator termite placement. This has been discussed by the PCP. Target process complete and awaiting bed availability. Would be sta ble for D/C pending arrangements (2) Cirrhosis: (3) Diabetes mellitus: (4) Seizure: (5) Myoclonic seizure: (6) Hyperammonemia: (7) Parkinsonism: Admission and Anticipated Discharge Date Admission Date: January 31, 2021 Subjective Wants to have lemon ice from cafeteria. Vaginal itching resolved Moving bowels, eating lunch Review of Systems Review of Systems: All systems reviewed & are unremarkable except as noted in HPI & below Physical Exam Constitutional: WD/WN, vitals as above Eyes: + anicteric sclerae Neck: trachea midline, no thyromegaly Respiratory: normal respiratory effort, lungs clear to auscultation Cardiovascular: RRR, no murmur, no edema Chest (Breasts): Chest: normal inspection of chest Musculoskeletal: Extremities: extremities normal to inspection; no cyanosis and no clubbing Skin: no rashes, warm and dry Neurologic: moves all extremities and awake; no focal motor deficits Motor/Sensory: + tremor (choreiform movements of head that stop with distraction) Psychiatric: A+Ox3, euthymic affect Lymphatic: no lymphedema Results & Data Results & Data ([facility]) Vital Signs (Past 12 Hours) Vital Signs Temp Pulse Resp BP Pulse Ox 02/17/21 07:51 36.8 C 69 16 121/73 97 PG Care Time/CCT Total # of Minutes Spent Total Time Spent with Patient: Total time spent is greater than 50% in coordination of care (as documented) at patient's floor/unit and/or counseling patient: Coding Level of Care Code 60773 Subseq Hosp Care Lvl 1 Diagnoses Acute UTI N39.0 Cirrhosis K74.60 Diabetes mellitus E11.9 Seizure R56.9 Myoclonic seizure G40.409 Hyperammonemia E72.20 Parkinsonism G20
[2021-02-17] MEDS: FAMOTIDINE 20 MG TAB PO SCH (19:48)
[2021-02-17] MEDS: ACETAMINOPHEN 500 MG TAB PO SCH (19:50)
[2021-02-17] MEDS: CLOTRIMAZOLE VAGINAL CR 7 APPLN/45 GM TUBE PV SCH (19:51)
[2021-02-17] MEDS: MELATONIN 3 MG TAB PO SCH (19:54)
[2021-02-18] MEDS: LEVOTHYROXINE SODIUM 50 MCG TABLET PO SCH (05:24)
[2021-02-18] MEDS: ASCORBIC ACID 500 MG TAB PO SCH (09:03)
[2021-02-18] MEDS: CHOLECALCIFEROL 1,000 UNITS 25 MCG TAB PO SCH (09:03)
[2021-02-18] MEDS: ESCITALOPRAM OXALATE 20 MG TAB PO SCH (09:03)
[2021-02-18] MEDS: CALCIUM CARBONATE 1250MG TAB PO SCH (09:03)
[2021-02-18] MEDS: BENZTROPINE MESYLATE 1 MG TAB PO SCH ×3 (09:03→21:10)
[2021-02-18] MEDS: rifAXIMin 550 MG TABLET PO SCH ×2 (09:04→21:11)
[2021-02-18] MEDS: rOPINIRole HCL 0.25 MG TABLET PO SCH ×2 (09:04→21:11)
[2021-02-18] MEDS: levETIRAcetam 500 MG TAB PO SCH ×2 (09:04→21:12)
[2021-02-18] MEDS: MAGNESIUM OXIDE 400 MG TAB PO SCH ×2 (09:04→21:12)
[2021-02-18] MEDS: HYDROCORTISONE 10 MG TAB PO SCH ×2 (09:04→14:59)
[2021-02-18] MEDS: PRAVASTATIN SOD 20 MG TAB PO SCH (09:04)
[2021-02-18] MEDS: TOPIRAMATE 100 MG TAB PO SCH ×2 (09:04→21:11)
[2021-02-18] MEDS: LACTULOSE SYRUP 20 GM/30 ML UDC PO SCH ×4 (09:04→21:21)
[2021-02-18] MEDS: OXcarbazepine 150 MG TABLET PO SCH ×2 (09:04→21:12)
[2021-02-18] MEDS: FEXOFENADINE 60 MG TAB PO SCH (09:04)
[2021-02-18] MEDS: LIDOCAINE 5% 1 PATCH TD SCH (09:47)
[2021-02-18] MEDS: DICLOFENAC SOD 1% GEL 100 GM TUBE EXT SCH ×4 (09:47→21:15)
[2021-02-18] MEDS: INSULIN ASPART 100 UNITS/ML 3 ML PEN SC SCH ×4 (09:47→21:15)
[2021-02-18] MEDS: INSULIN GLARGINE SOLOSTAR 100 UNITS/ML 3 ML PEN SC SCH (09:49)
[2021-02-18] MEDS: [UNRECOGNIZED DRUG - REMARK] PO PRN (11:39)
[2021-02-18] MEDS: VITAMIN B COMPLEX TAB PO SCH (13:30)
[2021-02-18] MEDS: CEROVITE ADV FORMULA TAB PO SCH (13:30)
[2021-02-18] MEDS: ZINC SULFATE 220 MG CAPSULE PO SCH (13:30)
[2021-02-18] MEDS: ADVANCED PROBIOTIC 1250 MG CAPSULE PO SCH (13:30)
--- NOTE | 2021-02-18 18:31 | Hospitalist Progress Note ---
Date of Service February 18, 2021 Assessment & Plan (1) Acute UTI: Plan: 1. Acute UTI - patient with complaint of foul smelling darker colored urine. UA suggestive of infection. She is afebrile, HD stable. She was altered on admission which quickly resolved without much intervention other than one dose of ceftriaxone-acute encephalopathy may be secondary to underlying infection. Ur cx with Proteus resistance to FQs No sepsis, no fevers -completed 5 day course of Ceftriaxone 2gm IV daily - reports no urinary symptoms 2. Hepatic encephalopathy: Patient with persistently elevated ammonia level. Ammonia =133 on admission and was altered although she improved without much intervention. Uncertain regarding medication compliance prior to arrival. Moving bowels now No need to check NH3 levels while is awake and conversive- mental status has remained stable for almost 3 weeks -Continue Lactulose daily. Titrate to 2-3 soft BMs/day -Continue rifaximin 550 mg p.o. twice daily 3. Cirrhosis: Patient with liver cirrhosis secondary to STEVE, portal hypertension. Patient follows with gastroenterology, last seen by Dr. Toledo on 10/11/20. Patient had an EGD in June 2020 which showed no varices and mild portal-hypertensive gastropathy. Recent abdominal ultrasound with stable cirrhosis. HCV screening has been completed and is negative. AFP on 03/09/2019 = 2.6. INR =1.3. Elevation of AP and Tbili comparable to prior levels. -LFTs stable from previous; Compensated at this time -Continue Lactulose -Continue Rifaximin 550 mg p.o. twice daily -Continue Pepcid 20mg po qHS - recently started by GI for complaint of nausea -Avoid hepatotoxic agents -Patient to have US in 1 year for HCC surveillance and EGD in 3 years for variceal screening. 4. Seizure disorder: Patient with history of seizure. She follows with kathy chaney, last seen on 10/30/20 - follows for mixed tremor as well as dyskinesia and seizure history, parkinsonism. EEG completed in May 2018 revealed a generalized spike and slow wave abnormality consistent with an underlying generalized seizure disorder. Patient had an MRI brain completed in October 2017 which was unremarkable. Patient failed VNS placement in the past, device was explanted. Presently on topiramate, Trileptal and Keppra. reports no seizure x 1 year or greater -Continue Ropinirole -Continue topiramate -Continue Trileptal -Continue Keppra -Continue Benztropine for EPS 5. Diabetes: Patient with type 2 diabetes, well controlled, long-term use of insulin. Last hemoglobin A1c=5.6 on 05/23/20. Patient follows with Endocrinology/Diabetes education. Last seen on 01/04/21. -Continue Lantus while here, Tresiba as outpt -ISS -Goal blood sugar 100 - 140 -Recommend annual A1c monitoring -Followup with patient educator outpatient as instructed Adrenal insufficiency - recently diagnosed at [facility]. -Continue Hydrocortisone bid -Patient follows with Endocrinology - they are questioning the validity of ACTH deficiency diagnosis and are planning to repeat testing to confirm diagnosis. 6. Chronic gait disorder - patient mostly in wheelchair at home. -Fall precautions -Wheelchair and walker as needed -Assistance as needed with transfers and ambulation -Patient has home health nurse -continue home B vitamin PT/OT consults recommend rehab 7. Hypothyroidism TSH here elevated at 7.8, question compliance -Continue Synthroid home dose and repeat TFTs in 4-6 weeks 8. Depression - Chronic. - Asked her nurse on 02/07 about needing a 3S admission - had a long conversation with her on 02/07 and she does not think her depression is worse than its usual and she has had this since she was a kid. She states some days are better than others but not worse then her baseline. She does agree she has a lot of stressors with her own health, 's health, and the process of being placed into long-term care. She denies suicidal ideations/thoughts/plans. She also stated she feels the lemon [place] ice will help her feel better... - reports no SI/plans -Continue Escitalopram -Melatonin qhs 9. Asthma - history of severe persistent asthma. She has seen Pulmonary as well as Allergy/Immunology in the past. Spirometry performed on 04/23/19 with FVC=1.37, 38% predicted. FEV1=1.18, 40% predicted and FEV1/FVC=86%. Suggestive of restrictive process vs obstruction with air trapping. Study limited. Formal PFTs ordered, not yet completed. Presently CTA, adequate oxygenation on room air, no concern for exacerbation at this time. -Continue Breo Ellipta -Continue Albuterol PRN 10. Migraine: Patient with episodic migraines. Well-controlled. -Continue topiramate -give triptan prn for migraine relief if needed 11. Tremor: Patient with coarse postural tremor. Some may be EPS, but seems more likely psychogenic? It stops when she is distracted. -Nonetheless, continue topiramate, benztropine 12. Osteoporosis-with h/o multiple fractures from falls - brought in Pito from home -continue home calcium and Vit D 13. Right sided jaw pain-occasional, has poor dentition-give prn magic swizzle, prn tylenol 14. Right knee pain-pt occasionally asks for oxycodone for this-reminded her she cannot have opioids due to her cirrhosis as this has caused her encephalopathy in the past. Start lidocaine patch to right knee 15. Right jaw pain-relieved with viscous lidocaine-advise f/u with dentist after discharge 16. Vaginal itching/burning-improved--> cont clotrimazole PV hs x 7 days-last day of tx 02/21 Ppx - Low risk for DVT. Code - Full PT/OT-please see 3x/week Case Management consultation for petroleum terminal plant operator placement. This has been discussed by the PCP. Target process complete and awaiting bed availability. Would be stable for D/C pending arrangements (2) Cirrhosis: (3) Diabetes mellitus: (4) Seizure: (5) Myoclonic seizure: (6) Hyperammonemia: (7) Parkinsonism: Admission and Anticipated Discharge Date Admission Date: January 31, 2021 Subjective Patient requesting the flu vaccine, but the nurse looked her up in the system and she already received it this season. She also is mad that she cannot eat any bread-I will change her to a type I diabetic diet so she can have more carbs. She is also upset that she is on an easy to chew diet-change her to regular texture Review of Systems Review of Systems: All systems reviewed & are unremarkable except as noted in HPI & below Physical Exam Constitutional: WD/WN, vitals as above Eyes: + anicteric sclerae Neck: trachea midline, no thyromegaly Respiratory: normal respiratory effort, lungs clear to auscultation Cardiovascular: RRR, no murmur, no edema Chest (Breasts): Chest: normal inspection of chest Musculoskeletal: Extremities: extremities normal to inspection; no cyanosis and no clubbing Skin: no rashes, warm and dry Neurologic: moves all extremities and awake; no focal motor deficits Carol r/Sensory: + tremor (choreiform movements of head that stop with distraction) Psychiatric: A+Ox3, euthymic affect Lymphatic: no lymphedema Results & Data Results & Data ([facility]) Vital Signs (Past 12 Hours) Vital Signs Temp Pulse Pulse Resp BP Pulse Ox 02/18/21 14:12 36.5 C 65 16 119/58 L 97 02/18/21 07:17 36.9 C 57 L 16 128/71 99 PG Care Time/CCT Total # of Minutes Spent Total Time Spent with Patient: Total time spent is greater than 50% in coordination of care (as documented) at patient's floor/unit and/or counseling patient: Coding Level of Care Code 23451 Subseq Hosp Care Lvl 1 Diagnoses Acute UTI N39.0 Cirrhosis K74.60 Diabetes mellitus E11.9 Seizure R56.9 Myoclonic seizure G40.409 Hyperammonemia E72.20 Parkinsonism G20
[2021-02-18] MEDS: ACETAMINOPHEN 500 MG TAB PO SCH (21:10)
[2021-02-18] MEDS: MELATONIN 3 MG TAB PO SCH (21:10)
[2021-02-18] MEDS: FAMOTIDINE 20 MG TAB PO SCH (21:11)
[2021-02-18] MEDS: CLOTRIMAZOLE VAGINAL CR 7 APPLN/45 GM TUBE PV SCH (21:14)
[2021-02-18] MEDS: [UNRECOGNIZED DRUG - REMARK] SQ SCH (22:57)
[2021-02-19] MEDS: LEVOTHYROXINE SODIUM 50 MCG TABLET PO SCH (06:25)
[2021-02-19] MEDS: INSULIN ASPART 100 UNITS/ML 3 ML PEN SC SCH ×4 (09:52→20:54)
[2021-02-19] MEDS: INSULIN GLARGINE SOLOSTAR 100 UNITS/ML 3 ML PEN SC SCH (09:56)
[2021-02-19] MEDS: PRAVASTATIN SOD 20 MG TAB PO SCH (10:05)
[2021-02-19] MEDS: rOPINIRole HCL 0.25 MG TABLET PO SCH ×2 (10:05→20:36)
[2021-02-19] MEDS: HYDROCORTISONE 10 MG TAB PO SCH ×2 (10:05→14:00)
[2021-02-19] MEDS: ASCORBIC ACID 500 MG TAB PO SCH (10:05)
[2021-02-19] MEDS: ESCITALOPRAM OXALATE 20 MG TAB PO SCH (10:05)
[2021-02-19] MEDS: FEXOFENADINE 60 MG TAB PO SCH (10:05)
[2021-02-19] MEDS: CALCIUM CARBONATE 1250MG TAB PO SCH (10:05)
[2021-02-19] MEDS: levETIRAcetam 500 MG TAB PO SCH ×2 (10:05→20:38)
[2021-02-19] MEDS: rifAXIMin 550 MG TABLET PO SCH ×2 (10:05→20:36)
[2021-02-19] MEDS: MAGNESIUM OXIDE 400 MG TAB PO SCH ×2 (10:05→20:39)
[2021-02-19] MEDS: TOPIRAMATE 100 MG TAB PO SCH ×2 (10:06→20:36)
[2021-02-19] MEDS: BENZTROPINE MESYLATE 1 MG TAB PO SCH ×3 (10:06→20:35)
[2021-02-19] MEDS: OXcarbazepine 150 MG TABLET PO SCH ×2 (10:06→20:38)
[2021-02-19] MEDS: CHOLECALCIFEROL 1,000 UNITS 25 MCG TAB PO SCH (10:06)
[2021-02-19] MEDS: LACTULOSE SYRUP 20 GM/30 ML UDC PO SCH ×3 (10:07→20:45)
[2021-02-19] MEDS: LIDOCAINE 5% 1 PATCH TD SCH (10:07)
[2021-02-19] MEDS: DICLOFENAC SOD 1% GEL 100 GM TUBE EXT SCH ×4 (10:07→20:35)
[2021-02-19] MEDS: ADVANCED PROBIOTIC 1250 MG CAPSULE PO SCH (12:38)
[2021-02-19] MEDS: ZINC SULFATE 220 MG CAPSULE PO SCH (12:38)
[2021-02-19] MEDS: CEROVITE ADV FORMULA TAB PO SCH (12:38)
[2021-02-19] MEDS: VITAMIN B COMPLEX TAB PO SCH (12:39)
--- NOTE | 2021-02-19 12:53 | Hospitalist Progress Note ---
Date of Service February 19, 2021 Assessment & Plan (1) Acute UTI: Plan: 1. Acute UTI - patient with complaint of foul smelling darker colored urine. UA suggestive of infection. She is afebrile, HD stable. She was altered on admission which quickly resolved without much intervention other than one dose of ceftriaxone-acute encephalopathy may be secondary to underlying infection. Ur cx with Proteus resistance to FQs No sepsis, no fevers -completed 5 day course of Ceftriaxone 2gm IV daily - reports no urinary symptoms 2. Hepatic encephalopathy: Patient with persistently elevated ammonia level. Ammonia =133 on admission and was altered although she improved without much intervention. Uncertain regarding medication compliance prior to arrival. Moving bowels now No need to check NH3 levels while is awake and conversive- mental status has remained stable for almost 3 weeks -Continue Lactulose daily. Titrate to 2-3 soft BMs/day -Continue rifaximin 550 mg p.o. twice daily 3. Cirrhosis: Patient with liver cirrhosis secondary to STEVE, portal hypertension. Patient follows with gastroenterology, last seen by Dr. Toledo on 10/11/20. Patient had an EGD in June 2020 which showed no varices and mild portal-hypertensive gastropathy. Recent abdominal ultrasound with stable cirrhosis. HCV screening has been completed and is negative. AFP on 03/09/2019 = 2.6. INR =1.3. Elevation of AP and Tbili comparable to prior levels. -LFTs stable from previous; Compensated at this time -Continue Lactulose -Continue Rifaximin 550 mg p.o. twice daily -Continue Pepcid 20mg po qHS - recently started by GI for complaint of nausea -Avoid hepatotoxic agents -Patient to have US in 1 year for HCC surveillance and EGD in 3 years for variceal screening. 4. Seizure disorder: Patient with history of seizure. She follows with kathy chaney, last seen on 10/30/20 - follows for mixed tremor as well as dyskinesia and seizure history, parkinsonism. EEG completed in May 2018 revealed a generalized spike and slow wave abnormality consistent with an underlying generalized seizure disorder. Patient had an MRI brain completed in October 2017 which was unremarkable. Patient failed VNS placement in the past, device was explanted. Presently on topiramate, Trileptal and Keppra. reports no seizure x 1 year or greater -Continue Ropinirole -Continue topiramate -Continue Trileptal -Continue Keppra -Continue Benztropine for EPS 5. Diabetes: Patient with type 2 diabetes, well controlled, long-term use of insulin. Last hemoglobin A1c=5.6 on 05/23/20. Patient follows with Endocrinology/Diabetes education. Last seen on 01/04/21. -Continue Lantus while here, Tresiba as outpt -ISS -Goal blood sugar 100 - 140 -Recommend annual A1c monitoring -Followup with guide rail cleaner outpatient as instructed Adrenal insufficiency - recently diagnosed at [facility] [place]. -Continue Hydrocortisone bid -Patient follows with Endocrinology - they are questioning the validity of ACTH deficiency diagnosis and are planning to repeat testing to confirm diagnosis. 6. Chronic gait disorder - patient mostly in wheelchair at home. -Fall precautions -Wheelchair and walker as needed -Assistance as needed with transfers and ambulation -Patient has home health nurse -continue home B vitamin PT/OT consults recommend rehab 7. Hypothyroidism TSH here elevated at 7.8, question compliance -Continue Synthroid home dose and repeat TFTs in 4-6 weeks 8. Depression - Chronic. - Asked her nurse on 02/07 about needing a 3S admission - had a long conversation with her on 02/07 and she does not think her depression is worse than its usual and she has had this since she was a kid. She states some days are better than others but not worse then her baseline. She does agree she has a lot of stressors with her own health, 's health, and the process of being placed into long-term care. She denies suicidal ideations/thoughts/plans. She also stated she feels the lemon [place] ice will help her feel better... - reports no SI/plans -Continue Escitalopram -Melatonin qhs 9. Asthma - history of severe persistent asthma. She has seen Pulmonary as well as Allergy/Immunology in the past. Spirometry performed on 04/23/19 with FVC=1.37, 38% predicted. FEV1=1.18, 40% predicted and FEV1/FVC=86%. Suggestive of restrictive process vs obstruction with air trapping. Study limited. Formal PFTs ordered, not yet completed. Presently CTA, adequate oxygenation on room air, no concern for exacerbation at this time. -Continue Breo Ellipta -Continue Albuterol PRN 10. Migraine: Patient with episodic migraines. Well-controlled. -Continue topiramate -give triptan prn for migraine relief if needed 11. Tremor: Patient with coarse postural tremor. Some may be EPS, but seems more likely psychogenic? It stops when she is distracted as well does not seem to be present when you walk past her room and no one is present in the room -Nonetheless, continue topiramate, benztropine 12. Osteoporosis-with h/o multiple fractures from falls - brought in Pito from home -continue home calcium and Vit D 13. Right sided jaw pain-occasional, has poor dentition-give prn magic swizzle, prn tylenol -- Relieved with viscous lidocaine - recommend F/U with dentist after discharge 14. Right knee pain-pt occasionally asks for oxycodone for this-reminded her she cannot have opioids due to her cirrhosis as this has caused her encephalopathy i n the past. Start lidocaine patch to right knee 15. Vaginal itching/burning-improved--> cont clotrimazole PV hs x 7 days-last day of tx 02/21 Ppx - Low risk for DVT. Code - Full PT/OT-please see 3x/week Case Management consultation for vermin exterminator placement. This has been discussed by the PCP. Target process complete and awaiting bed availability. Would be stable for D/C pending arrangements (2) Cirrhosis: (3) Diabetes mellitus: (4) Seizure: (5) Myoclonic seizure: (6) Hyperammonemia: (7) Parkinsonism: Admission and Anticipated Discharge Date Admission Date: January 31, 2021 Subjective Reports doing well today. Is happy she is able to have more bread with her meals. Reports her knee pain is controlled with Voltaren. Reports no acute issues. Still awaiting placement Review of Systems Review of Systems: REVIEW OF SYSTEMS General/Constitutional: Denies fever/chills Cardiovascular: Denies chest pain, palpitations, edema Respiratory: Denies cough, SOB GI: Denies nausea, vomiting, abdominal pain, constipation, diarrhea : Denies dysuria Musculoskeletal: + R knee pain (controlled with Voltaren) Neurologic: Denies dizziness/lightheadedness Physical Exam Physical Exam: PHYSICAL EXAM General Appearance: Frail; in NAD who is A&O x 3 HEENT: Head is normocephalic/atraumatic; Hearing grossly intact; anicteric sclera Neck: Supple; Trachea midline; Neg JVD Heart: RRR with no M/G/R Lungs: CTA in all lung dyer bilaterally; Respirations unlabored; Neg accessory muscle use Abdomen: Soft, non-tender, non-distended; Positive BS x 4 quadrants Extremities: Neg cyanosis or edema; no edema of the lower extremities; well healed surgical incision to the lateral aspect of R thigh/knee without erythema/drainage Neurological: Speech clear; Gross motor/sensory function intact; Neg focal neurologic deficits; +tremor; +choreiform movements of head Psychiatric: Appropriate mood/affect Skin: Normal Color; Warm/Dry Results & Data Results & Data ([facility]) Vital Signs (Past 12 Hours) Vital Signs Temp Pulse Resp BP Pulse Ox 02/19/21 07:49 36.8 C 60 16 138/79 99 PG Care Time/CCT Total # of Minutes Spent Total Time Spent with Patient: Total time spent is greater than 50% in coordination of care (as documented) at patient's floor/unit and/or counseling patient: Coding Level of Care Code 15821 Subseq Hosp Care Lvl 2 Diagnoses Acute UTI N39.0 Cirrhosis K74.60 Diabetes mellitus E11.9 Seizure R56.9 Myoclonic seizure G40.409 Hyperammonemia E72.20 Parkinsonism G20
[2021-02-19] MEDS: CLOTRIMAZOLE VAGINAL CR 7 APPLN/45 GM TUBE PV SCH (20:34)
[2021-02-19] MEDS: ACETAMINOPHEN 500 MG TAB PO SCH (20:35)
[2021-02-19] MEDS: MELATONIN 3 MG TAB PO SCH (20:35)
[2021-02-19] MEDS: FAMOTIDINE 20 MG TAB PO SCH (20:38)
[2021-02-19] MEDS: [UNRECOGNIZED DRUG - REMARK] SQ SCH (20:51)
[2021-02-20] MEDS: LEVOTHYROXINE SODIUM 50 MCG TABLET PO SCH (05:00)
[2021-02-20] MEDS: LIDOCAINE VISCOUS 2% SOLN 60 ML, diphenhydrAMINE Syrup 150 MG, ALUMINUM/MAGNESIUM SUSP ... PO PRN (05:50)
[2021-02-20] MEDS: FEXOFENADINE 60 MG TAB PO SCH (09:11)
[2021-02-20] MEDS: ASCORBIC ACID 500 MG TAB PO SCH (09:11)
[2021-02-20] MEDS: PRAVASTATIN SOD 20 MG TAB PO SCH (09:11)
[2021-02-20] MEDS: BENZTROPINE MESYLATE 1 MG TAB PO SCH ×3 (09:12→21:15)
[2021-02-20] MEDS: rOPINIRole HCL 0.25 MG TABLET PO SCH ×2 (09:12→21:16)
[2021-02-20] MEDS: ESCITALOPRAM OXALATE 20 MG TAB PO SCH (09:13)
[2021-02-20] MEDS: HYDROCORTISONE 10 MG TAB PO SCH ×2 (09:13→13:20)
[2021-02-20] MEDS: MAGNESIUM OXIDE 400 MG TAB PO SCH ×2 (09:14→21:13)
[2021-02-20] MEDS: levETIRAcetam 500 MG TAB PO SCH ×2 (09:14→21:11)
[2021-02-20] MEDS: TOPIRAMATE 100 MG TAB PO SCH ×2 (09:14→21:14)
[2021-02-20] MEDS: CALCIUM CARBONATE 1250MG TAB PO SCH (09:15)
[2021-02-20] MEDS: CHOLECALCIFEROL 1,000 UNITS 25 MCG TAB PO SCH (09:15)
[2021-02-20] MEDS: OXcarbazepine 150 MG TABLET PO SCH ×2 (09:16→21:13)
[2021-02-20] MEDS: INSULIN ASPART 100 UNITS/ML 3 ML PEN SC SCH ×4 (09:21→21:21)
[2021-02-20] MEDS: INSULIN GLARGINE SOLOSTAR 100 UNITS/ML 3 ML PEN SC SCH (09:22)
[2021-02-20] MEDS: LIDOCAINE 5% 1 PATCH TD SCH (09:22)
[2021-02-20] MEDS: DICLOFENAC SOD 1% GEL 100 GM TUBE EXT SCH ×4 (09:22→21:19)
[2021-02-20] MEDS: LACTULOSE SYRUP 20 GM/30 ML UDC PO SCH ×3 (09:23→21:12)
[2021-02-20] MEDS: rifAXIMin 550 MG TABLET PO SCH ×2 (11:39→21:15)
[2021-02-20] MEDS: ADVANCED PROBIOTIC 1250 MG CAPSULE PO SCH (11:39)
[2021-02-20] MEDS: ZINC SULFATE 220 MG CAPSULE PO SCH (11:39)
[2021-02-20] MEDS: CEROVITE ADV FORMULA TAB PO SCH (11:40)
[2021-02-20] MEDS: VITAMIN B COMPLEX TAB PO SCH (11:40)
--- NOTE | 2021-02-20 14:01 | Hospitalist Progress Note ---
Date of Service February 20, 2021 Assessment & Plan (1) Acute UTI: Plan: 1. Acute UTI - patient with complaint of foul smelling darker colored urine. UA suggestive of infection. She is afebrile, HD stable. She was altered on admission which quickly resolved without much intervention other than one dose of ceftriaxone-acute encephalopathy may be secondary to underlying infection. Ur cx with Proteus resistance to FQs No sepsis, no fevers -completed 5 day course of Ceftriaxone 2gm IV daily - reports no urinary symptoms 2. Hepatic encephalopathy: Patient with persistently elevated ammonia level. Ammonia =133 on admission and was altered although she improved without much intervention. Uncertain regarding medication compliance prior to arrival. Moving bowels now No need to check NH3 levels while is awake and conversive- mental status has remained stable for almost 3 weeks -Continue Lactulose daily. Titrate to 2-3 soft BMs/day -Continue rifaximin 550 mg p.o. twice daily 3. Cirrhosis: Patient with liver cirrhosis secondary to STEVE, portal hypertension. Patient follows with gastroenterology, last seen by Dr. Toledo on 10/11/20. Patient had an EGD in June 2020 which showed no varices and mild portal-hypertensive gastropathy. Recent abdominal ultrasound with stable cirrhosis. HCV screening has been completed and is negative. AFP on 03/09/2019 = 2.6. INR =1.3. Elevation of AP and Tbili comparable to prior levels. -LFTs stable from previous; Compensated at this time -Continue Lactulose -Continue Rifaximin 550 mg p.o. twice daily -Continue Pepcid 20mg po qHS - recently started by GI for complaint of nausea -Avoid hepatotoxic agents -Patient to have US in 1 year for HCC surveillance and EGD in 3 years for variceal screening. 4. Seizure disorder: Patient with history of seizure. She follows with kathy chaney, last seen on 10/30/20 - follows for mixed tremor as well as dyskinesia and seizure history, parkinsonism. EEG completed in May 2018 revealed a generalized spike and slow wave abnormality consistent with an underlying generalized seizure disorder. Patient had an MRI brain completed in October 2017 which was unremarkable. Patient failed VNS placement in the past, device was explanted. Presently on topiramate, Trileptal and Keppra. reports no seizure x 1 year or greater -Continue Ropinirole -Continue topiramate -Continue Trileptal -Continue Keppra -Continue Benztropine for EPS 5. Diabetes: Patient with type 2 diabetes, well controlled, long-term use of insulin. Last hemoglobin A1c=5.6 on 05/23/20. Patient follows with Endocrinology/Diabetes education. Last seen on 01/04/21. -Continue Lantus while here, Tresiba as outpt -ISS -Goal blood sugar 100 - 140 -Recommend annual A1c monitoring -Followup with anesthesiologist assistant certified outpatient as instructed Adrenal insufficiency - recently diagnosed at [facility]. -Continue Hydrocortisone bid -Patient follows with Endocrinology - they are questioning the validity of ACTH deficiency diagnosis and are planning to repeat testing to confirm diagnosis. 6. Chronic gait disorder - patient mostly in wheelchair at home. -Fall precautions -Wheelchair and walker as needed -Assistance as needed with transfers and ambulation -Patient has home health nurse -continue home B vitamin PT/OT consults recommend rehab 7. Hypothyroidism TSH here elevated at 7.8, question compliance -Continue Synthroid home dose and repeat TFTs in 4-6 weeks 8. Depression - Chronic. - Asked her nurse on 02/07 about needing a 3S admission - had a long conversation with her on 02/07 and she does not think her depression is worse than its usual and she has had this since she was a kid. She states some days are better than others but not worse then her baseline. She does agree she has a lot of stressors with her own health, 's health, and the process of being placed into long-term care. She denies suicidal ideations/thoughts/plans. She also stated she feels the lemon [place] ice will help her feel better... - Has not had any further issues with this since that date -Continue Escitalopram -Melatonin qhs 9. Asthma - history of severe persistent asthma. She has seen Pulmonary as well as Allergy/Immunology in the past. Spirometry performed on 04/23/19 with FVC=1.37, 38% predicted. FEV1=1.18, 40% predicted and FEV1/FVC=86%. Suggestive of restrictive process vs obstruction with air trapping. Study limited. Formal PFTs ordered, not yet completed. Presently CTA, adequate oxygenation on room air, no concern for exacerbation at this time. -Continue Breo Ellipta -Continue Albuterol PRN 10. Migraine: Patient with episodic migraines. Well-controlled. -Continue topiramate -give triptan prn for migraine relief if needed 11. Tremor: Patient with coarse postural tremor. Some may be EPS, but seems more likely psychogenic? It stops when she is distracted as well does not seem to be present when you walk past her room and no one is present in the room -Nonetheless, continue topiramate, benztropine 12. Osteoporosis-with h/o multiple fractures from falls - brought in [facility] from home -continue home calcium and Vit D 13. Right sided jaw pain-occasional, has poor dentition-give prn magic swizzle, prn tylenol -- Relieved with viscous lidocaine - recommend F/U with dentist after discharge 14. Right knee pain-pt occasionally asks for oxycodone for this-reminded her she cannot have opioids due to her cirrhosis as this has caused her encephalopathy in the past. Started lidocaine patch to right knee 15. Vaginal itching/burning-improved--> cont clotrimazole PV hs x 7 days-last day of tx 02/21 Ppx - Low risk for DVT. Code - Full PT/OT-please see 3x/week Case Management consultation for fpc placement. This has been discussed by the PCP. Target process complete and awaiting bed availability. Would be stable for D/C pending arrangements (2) Cirrhosis: (3) Diabetes mellitus: (4) Seizure: (5) Myoclonic seizure: (6) Hyperammonemia: (7) Parkinsonism: Admission and Anticipated Discharge Date Admission Date: January 31, 2021 Subjective Reports no new complaints today. Continues with intermittent R knee pain that improves with Voltaren. She continues to tolerate a diet without issue. Denies any jaw pain today. States she would like to go home, states she talked with her who might agree with this. However, he was not present during this conversation to confirm this. She feels she can do this at home. When asked about getting on the toilet she admits to needing two people to help but feels her can do it by himself "if he holds on to my pants" Review of Systems Review of Systems: All systems reviewed & are unremarkable except as noted in Subjective Physical Exam Physical Exam: PHYSICAL EXAM General Appearance: Frail; in NAD who is A&O x 3 HEENT: Head is normocephalic/atraumatic; Hearing grossly intact; anicteric sclera Neck: Supple; Trachea midline; Neg JVD Heart: RRR with no M/G/R Lungs: CTA in all lung dyer bilaterally; Respirations unlabored; Neg accessory muscle use Abdomen: Soft, non-tender, non-distended; Positive BS x 4 quadrants Neurological: Speech clear; +tremor; +choreiform movements of head Psychiatric: Appropriate mood/affect Skin: Normal Color; Warm/Dry PG Care Time/CCT Total # of Minutes Spent Total Time Spent with Patient: Total time spent is greater than 50% in coordination of care (as documented) at patient's floor/unit and/or counseling patient: Coding Level of Care Code 35363 Subseq Hosp Care Lvl 2 Diagnoses Acute UTI N39.0 Cirrhosis K74.60 Diabetes mellitus E11.9 Seizure R56.9 Myoclonic seizure G40.409 Hyperammonemia E72.20 Parkinsonism G20
[2021-02-20] MEDS: ACETAMINOPHEN 500 MG TAB PO SCH (21:10)
[2021-02-20] MEDS: MELATONIN 3 MG TAB PO SCH (21:12)
[2021-02-20] MEDS: CLOTRIMAZOLE VAGINAL CR 7 APPLN/45 GM TUBE PV SCH (21:19)
[2021-02-20] MEDS: FAMOTIDINE 20 MG TAB PO SCH (21:29)
[2021-02-20] MEDS: [UNRECOGNIZED DRUG - REMARK] SQ SCH (21:36)
[2021-02-21] MEDS: LEVOTHYROXINE SODIUM 50 MCG TABLET PO SCH (05:00)
[2021-02-21] MEDS: LACTULOSE SYRUP 20 GM/30 ML UDC PO SCH ×3 (09:16→21:19)
[2021-02-21] MEDS: CALCIUM CARBONATE 1250MG TAB PO SCH (09:17)
[2021-02-21] MEDS: ESCITALOPRAM OXALATE 20 MG TAB PO SCH (09:17)
[2021-02-21] MEDS: rOPINIRole HCL 0.25 MG TABLET PO SCH ×2 (09:18→21:24)
[2021-02-21] MEDS: ASCORBIC ACID 500 MG TAB PO SCH (09:18)
[2021-02-21] MEDS: BENZTROPINE MESYLATE 1 MG TAB PO SCH ×3 (09:19→21:23)
[2021-02-21] MEDS: CHOLECALCIFEROL 1,000 UNITS 25 MCG TAB PO SCH (09:19)
[2021-02-21] MEDS: MAGNESIUM OXIDE 400 MG TAB PO SCH ×2 (09:20→21:24)
[2021-02-21] MEDS: rifAXIMin 550 MG TABLET PO SCH ×2 (09:20→21:24)
[2021-02-21] MEDS: HYDROCORTISONE 10 MG TAB PO SCH ×2 (09:21→13:20)
[2021-02-21] MEDS: OXcarbazepine 150 MG TABLET PO SCH ×2 (09:22→21:24)
[2021-02-21] MEDS: FEXOFENADINE 60 MG TAB PO SCH (09:22)
[2021-02-21] MEDS: PRAVASTATIN SOD 20 MG TAB PO SCH (09:23)
[2021-02-21] MEDS: levETIRAcetam 500 MG TAB PO SCH ×2 (09:23→21:24)
[2021-02-21] MEDS: TOPIRAMATE 100 MG TAB PO SCH ×2 (09:23→21:24)
[2021-02-21] MEDS: DICLOFENAC SOD 1% GEL 100 GM TUBE EXT SCH ×4 (09:26→21:23)
[2021-02-21] MEDS: INSULIN ASPART 100 UNITS/ML 3 ML PEN SC SCH ×4 (09:27→21:32)
[2021-02-21] MEDS: INSULIN GLARGINE SOLOSTAR 100 UNITS/ML 3 ML PEN SC SCH (09:28)
[2021-02-21] MEDS: LIDOCAINE 5% 1 PATCH TD SCH (09:31)
--- NOTE | 2021-02-21 13:17 | Hospitalist Progress Note ---
Date of Service February 21, 2021 Assessment & Plan (1) Acute UTI: Plan: 1. Acute UTI - no sepsis/no fevers - Ur cx with Proteus resistance to FQs -completed 5 day course of Ceftriaxone 2gm IV daily - reports no urinary symptoms - Now reporting burning on urination and nausea - will repeat UA but hold on Abx until sample obtained - She was complaining of vaginal itching/burning and was treated with clotrimazole x 7 days and finishes treatment today - may be more the issue 2. Hepatic encephalopathy: Patient with persistently elevated ammonia level. Ammonia =133 on admission and was altered although she improved without much intervention. Uncertain regarding medication compliance prior to arrival. Moving bowels now No need to check NH3 levels while is awake and conversive- mental status has remained stable for almost 3 weeks -Continue Lactulose daily. Titrate to 2-3 soft BMs/day -Continue rifaximin 550 mg p.o. twice daily 3. Cirrhosis: Patient with liver cirrhosis secondary to STEVE, portal hypertension. Patient follows with gastroenterology, last seen by Dr. Toledo on 10/11/20. Patient had an EGD in June 2020 which showed no varices and mild portal-hypertensive gastropathy. Recent abdominal ultrasound with stable cirrhosis. HCV screening has been completed and is negative. AFP on 03/09/2019 = 2.6. INR =1.3. Elevation of AP and Tbili comparable to prior levels. -LFTs stable from previous; Compensated at this time -Continue Lactulose -Continue Rifaximin 550 mg p.o. twice daily -Continue Pepcid 20mg po qHS - recently started by GI for complaint of nausea -Avoid hepatotoxic agents -Patient to have US in 1 year for HCC surveillance and EGD in 3 years for variceal screening. 4. Seizure disorder: Patient with history of seizure. She follows with neurology, last seen on 10/30/20 - follows for mixed tremor as well as dyskinesia and seizure history, parkinsonism. EEG completed in May 2018 revealed a generalized spike and slow wave abnormality consistent with an underlying generalized seizure disorder. Patient had an MRI brain completed in October 2017 which was unremarkable. Patient failed VNS placement in the past, device was explanted. Presently on topiramate, Trileptal and Keppra. reports no seizure x 1 year or greater -Continue Ropinirole -Continue topiramate -Continue Trileptal -Continue Keppra -Continue Benztropine for EPS 5. Diabetes: Patient with type 2 diabetes, well controlled, long-term use of insulin. Last hemoglobin A1c=5.6 on 05/23/20. Patient follows with Endocrinology/Diabetes education. Last seen on 01/04/21. -Continue Lantus while here, Tresiba as outpt -ISS -Goal blood sugar 100 - 140 -Recommend annual A1c monitoring -Followup with reflesher outpatient as instructed 6. Adrenal insufficiency - [place] [facility] -Continue Hydrocortisone bid -Patient follows with Endocrinology - they are questioning the validity of ACTH deficiency diagnosis and are planning to repeat testing to confirm diagnosis. 7. Chronic gait disorder - patient mostly in wheelchair at home. -Fall precautions -Wheelchair and walker as needed; Assistance as needed with transfers and ambulation -Patient has home health nurse -continue home B vitamin PT/OT consults recommend rehab 8. Hypothyroidism TSH here elevated at 7.8, question compliance -Continue Synthroid home dose and repeat TFTs in 4-6 weeks 9. Depression - Chronic. - Asked her nurse on 02/07 about needing a 3S admission - had a long conversation with her on 02/07 and she does not think her depression is worse than its usual and she has had this since she was a kid. She states some days are better than others but not worse then her baseline. She does agree she has a lot of stressors with her own health, 's health, and the process of being placed into long-term care. She denies suicidal ideations/thoughts/plans. She also stated she feels the lemon [place] ice will help her feel better... - Has not had any further issues with this since that date -Continue Escitalopram -Melatonin qhs 10. Asthma - history of severe persistent asthma. She has seen Pulmonary as well as Allergy/Immunology in the past. Spirometry performed on 04/23/19 with FVC=1.37, 38% predicted. FEV1=1.18, 40% predicted and FEV1/FVC=86%. Suggestive of restrictive process vs obstruction with air trapping. Study limited. Formal PFTs ordered, not yet completed. Presently CTA, adequate oxygenation on room air, no concern for exacerbation at this time. -Continue Breo Ellipta -Continue Albuterol PRN 11. Migraine: Patient with episodic migraines. Well-controlled. -Continue topiramate -give triptan prn for migraine relief if needed 12. Tremor: Patient with coarse postural tremor. Some may be EPS, but seems more likely psychogenic? It stops when she is distracted as well does not seem to be present when you walk past her room and no one is present in the room -Nonetheless, continue topiramate, benztropine 13. Osteoporosis-with h/o multiple fractures from falls - brought in [facility] from home -continue home calcium and Vit D 14. Right sided jaw pain-occasional, has poor dentition-give prn magic swizzle, prn tylenol -- Relieved with viscous lidocaine - recommend F/U with dentist after discharge 15. Right knee pain-pt occasionally asks for oxycodone for this-reminded her she cannot have opioids due to her cirrhosis as this has caused her encephalopathy in the past. Started lidocaine patch to right knee Ppx - Low risk for DVT. Code - Full PT/OT-please see 3x/week Case Management consultation for long-term placement. This has been discussed by the PCP. Target process complete and awaiting bed availability. Would be stable for D/C pending arrangements (2) Cirrhosis: (3) Diabetes mellitus: (4) Seizure: (5) Myoclonic seizure: (6) Hyperammonemia: (7) Parkinsonism: Admission and Anticipated Discharge Date Admission Date: January 31, 2021 Subjective Reports doing well overall. Feels she is starting to get burning on urination and some nausea and thinks she is getting a UTI again. She reports pain is controlled in knee. Tolerating diet. She feels she is getting strong and continues to ask to go home. She claims her is okay with her returning home but he has not confirmed this. Unfortunately without his ability to care for her at home she would not be safe to transfer home. She was also asking for her Lasix however reviewed multiple hospital stays and last Rx was back in August. She reports all her medications come from [facility] but it does not appear she had any recent Rx for this or used it on previous admissions. She appears euvolemic. Review of Systems Review of Systems: All systems reviewed & are unremarkable except as noted in Subjective Physical Exam Physical Exam: PHYSICAL EXAM General Appearance: Frail; in NAD who is A&O x 3 HEENT: Head is normocephalic/atraumatic; Hearing grossly intact; anicteric sclera Neck: Supple; Trachea midline; Neg JVD Heart: RRR with no M/G/R Lungs: CTA in all lung dyer bilaterally; Respirations unlabored; Neg accessory muscle use Abdomen: Soft, non-tender, non-distended; Positive BS x 4 quadrants Neurological: Speech clear; +tremor; +choreiform movements of head Psychiatric: Appropriate mood/affect Skin: Normal Color; Warm/Dry Results & Data Results & Data ([facility]) Vital Signs (Past 12 Hours) Vital Signs Temp Pulse Resp BP Pulse Ox 02/21/21 07:34 36.6 C 57 L 16 131/62 97 PG Care Time/CCT Total # of Minutes Spent Total Time Spent with Patient: Total time spent is greater than 50% in coordination of care (as documented) at patient's floor/unit and/or counseling patient: Coding Level of Care Code 23730 Subseq Hosp Care Lvl 2 Diagnoses Acute UTI N39.0 Cirrhosis K74.60 Diabetes mellitus E11.9 Seizure R56.9 Myoclonic seizure G40.409 Hyperammonemia E72.20 Parkinsonism G20
[2021-02-21] MEDS: ADVANCED PROBIOTIC 1250 MG CAPSULE PO SCH (13:19)
[2021-02-21] MEDS: CEROVITE ADV FORMULA TAB PO SCH (13:20)
[2021-02-21] MEDS: VITAMIN B COMPLEX TAB PO SCH (13:21)
[2021-02-21] MEDS: ZINC SULFATE 220 MG CAPSULE PO SCH (13:21)
[2021-02-21 17:07] LABS: Appearance Urine Cloudy (Clear); Bacteria Urine Automated 1+ (Negative); Bilirubin Urine Negative (Negative); Blood Urine Negative (Negative); Color Urine Yellow; Epithelial Cell Urine Auto 0-5 /lpf (0-5); Glucose Urine UA Negative (Negative); Ketones Urine Negative (Negative); Leukocyte Esterase Urine 2+ (Negative); Nitrite Urine Positive (Negative); Protein Urine Negative (Negative); RBC Urine Automated 0-4 /hpf (0-4); Specific Gravity Urine 1.012 (1.000-1.030); Urobilinogen Urine Negative (Negative); WBC Urine Automated >30 /hpf (0-5); pH Urine 8.5 (4.5-7.5)
[2021-02-21] MEDS: LIDOCAINE VISCOUS 2% SOLN 60 ML, diphenhydrAMINE Syrup 150 MG, ALUMINUM/MAGNESIUM SUSP ... PO PRN (17:44)
[2021-02-21] MEDS: ACETAMINOPHEN 500 MG TAB PO SCH (21:23)
[2021-02-21] MEDS: CLOTRIMAZOLE VAGINAL CR 7 APPLN/45 GM TUBE PV SCH ×2 (21:23→21:25)
[2021-02-21] MEDS: FAMOTIDINE 20 MG TAB PO SCH (21:24)
[2021-02-21] MEDS: MELATONIN 3 MG TAB PO SCH (21:29)
[2021-02-21] MEDS: [UNRECOGNIZED DRUG - REMARK] SQ SCH (21:29)
[2021-02-22] MEDS: LEVOTHYROXINE SODIUM 50 MCG TABLET PO SCH (05:19)
--- NOTE | 2021-02-22 07:51 | Hospitalist Progress Note ---
Date of Service February 22, 2021 Assessment & Plan (1) Acute UTI: Plan: Acute UTI - no sepsis/no fevers - Ur cx with Proteus resistance to FQs -completed 5 day course of Ceftriaxone 2gm IV daily - urinary symptoms return 02/21, recultured - vaginal itching/burning and was treated with clotrimazole x 7 days and finishes treatment 02/21 (2) Cirrhosis: Plan: Cirrhosis secondary to STEVE, portal hypertension. Patient follows with gastroenterology, last seen by Dr. Toledo on 10/11/20. Patient had an EGD in June 2020 which showed no varices and mild portal-hypertensive gastropathy. . HCV screening has been completed and is negative. AFP on 03/09/2019 = 2.6. INR =1.3. Elevation of AP and Tbili comparable to prior levels. -LFTs stable Compensated at this time Hepatic Encephalopathy -Continue Lactulose, Rifaximin 550 mg p.o. twice daily, Titrate to 2-3 soft BMs/day Pepcid 20mg po qHS - -Patient to have US in 1 year for HCC surveillance and EGD in 3 years for variceal screening. (3) Diabetes mellitus: Plan: Diabetes: Patient with type 2 diabetes, well controlled, long-term use of insulin. Last hemoglobin A1c=5.6 on 05/23/20. Patient follows with Endocrinology/Diabetes education. Last seen on 01/04/21. -Continue Lantus while here, Tresiba as outpt -ISS -Goal blood sugar 100 - 140 -Recommend annual A1c monitoring -Followup with faculty physician outpatient as instructed (4) Seizure: Plan: Seizure disorder: Patient with history of seizure. She follows with neurology, last seen on 10/30/20 - follows for mixed tremor as well as dyskinesia and seizure history, parkinsonism. EEG completed in May 2018 revealed a generalized spike and slow wave abnormality consistent with an underlying generalized seizure disorder. Patient had an MRI brain completed in October 2017 which was unremarkable. Patient failed VNS placement in the past, device was explanted. Presently on topiramate, Trileptal and Keppra. reports no seizure x 1 year or greater -Continue Ropinirole -Continue topiramate -Continue Trileptal -Continue Keppra -Continue Benztropine for EPS (5) Myoclonic seizure: Plan: History of the same (6) Hyperammonemia: Plan: chronic and long standing, continue to treat with cathartic agents (7) Parkinsonism: Plan: secondary to psyche meds, continue benztropine Plan: PT/OT-please see 3x/week Case Management consultation for motor vehicle examiner placement. This has been discussed by the PCP. Target process complete and awaiting bed availability. Would be stable for D/C pending arrangements Admission and Anticipated Discharge Date Admission Date: January 31, 2021 Subjective pt has no complaints states knee and urine are a bit better, looking forward to seeing visit today Review of Systems Review of Systems: Mild distress and fatigue no headache, no visual changes no speech or swallowing issues no chest pain, pressure or palpitations no shortness of breath, cough or wheezes no abdominal pain, nausea or vomiting, diarrhea or constipation no dysuria, hematuria or frequency no focal joint pain or swelling no back pain, CVA tenderness or radicular pain no bruising, bleeding or rashes no focal signs of weakness or numbness or altered sensation no complaints of anxiety or depression. Physical Exam Physical Exam: The patient appeared well Vital signs as documented. Lungs are clear to auscultation and appear unlabored Cardiac exam, Rhythm is regular.. No murmurs, rubs or gallops. Abdominal exam reveals normal bowel sounds, soft non tender, no masses Extremities are nonedematous and both pedal pulses are normal. Neurologic exam is alert and oriented, no focal loss of strength or sensation Skin is without bruises or rashes Psychologically is without concerns for anxiety or depression. Results & Data Results & Data ([facility]) Vital Signs (Past 12 Hours) Vital Signs Temp Pulse Resp BP BP Pulse Ox 02/22/21 07:26 98.2 F 61 16 136/70 99 02/21/21 23:32 98.1 F 67 18 122/73 97 PG Care Time/CCT Total # of Minutes Spent Total Time Spent with Patient: Total time spent is greater than 50% in coordination of care (as documented) at patient's floor/unit and/or counseling patient: Coding Level of Care Code 13669 Subseq Hosp Care Lvl 1 Diagnoses Acute UTI N39.0 Cirrhosis K74.60 Diabetes mellitus E11.9 Seizure R56.9 Myoclonic seizure G40.409 Hyperammonemia E72.20 Parkinsonism G20
[2021-02-22] MEDS: HEPARIN 100 UNIT/ML 5ML FLUSH FLUSH PRN (08:20)
[2021-02-22] MEDS ORDERED: INSULIN GLARGINE SOLOSTAR 100 UNITS/ML 3 ML PEN SC SCH (09:00)
[2021-02-22] MEDS: LACTULOSE SYRUP 20 GM/30 ML UDC PO SCH ×3 (09:18→21:18)
[2021-02-22] MEDS: CHOLECALCIFEROL 1,000 UNITS 25 MCG TAB PO SCH (09:19)
[2021-02-22] MEDS: BENZTROPINE MESYLATE 1 MG TAB PO SCH ×3 (09:19→21:21)
[2021-02-22] MEDS: MAGNESIUM OXIDE 400 MG TAB PO SCH ×2 (09:20→21:20)
[2021-02-22] MEDS: ESCITALOPRAM OXALATE 20 MG TAB PO SCH (09:20)
[2021-02-22] MEDS: CALCIUM CARBONATE 1250MG TAB PO SCH (09:21)
[2021-02-22] MEDS: FEXOFENADINE 60 MG TAB PO SCH (09:21)
[2021-02-22] MEDS: HYDROCORTISONE 10 MG TAB PO SCH ×2 (09:21→13:36)
[2021-02-22] MEDS: PRAVASTATIN SOD 20 MG TAB PO SCH (09:22)
[2021-02-22] MEDS: ASCORBIC ACID 500 MG TAB PO SCH (09:22)
[2021-02-22] MEDS: rifAXIMin 550 MG TABLET PO SCH ×2 (09:23→21:20)
[2021-02-22] MEDS: OXcarbazepine 150 MG TABLET PO SCH ×2 (09:24→21:20)
[2021-02-22] MEDS: rOPINIRole HCL 0.25 MG TABLET PO SCH ×2 (09:24→21:20)
[2021-02-22] MEDS: TOPIRAMATE 100 MG TAB PO SCH ×2 (09:24→21:20)
[2021-02-22] MEDS: levETIRAcetam 500 MG TAB PO SCH ×2 (09:26→21:20)
[2021-02-22] MEDS: INSULIN ASPART 100 UNITS/ML 3 ML PEN SC SCH ×4 (09:28→21:15)
[2021-02-22] MEDS: INSULIN GLARGINE SOLOSTAR 100 UNITS/ML 3 ML PEN SC SCH (09:29)
[2021-02-22] MEDS: LIDOCAINE 5% 1 PATCH TD SCH (09:30)
[2021-02-22] MEDS: DICLOFENAC SOD 1% GEL 100 GM TUBE EXT SCH ×4 (09:30→21:21)
[2021-02-22] MEDS: ADVANCED PROBIOTIC 1250 MG CAPSULE PO SCH (13:34)
[2021-02-22] MEDS: ZINC SULFATE 220 MG CAPSULE PO SCH (13:35)
[2021-02-22] MEDS: VITAMIN B COMPLEX TAB PO SCH (13:35)
[2021-02-22] MEDS: CEROVITE ADV FORMULA TAB PO SCH (13:36)
[2021-02-22] MEDS: ACETAMINOPHEN 500 MG TAB PO SCH (21:20)
[2021-02-22] MEDS: FAMOTIDINE 20 MG TAB PO SCH (21:20)
[2021-02-22] MEDS: [UNRECOGNIZED DRUG - REMARK] SQ SCH (21:27)
[2021-02-22] MEDS: MELATONIN 3 MG TAB PO SCH (21:27)
[2021-02-23] MEDS: LEVOTHYROXINE SODIUM 50 MCG TABLET PO SCH (06:08)
[2021-02-23] MEDS: INSULIN ASPART 100 UNITS/ML 3 ML PEN SC SCH ×4 (09:43→20:43)
[2021-02-23] MEDS: INSULIN GLARGINE SOLOSTAR 100 UNITS/ML 3 ML PEN SC SCH (09:45)
[2021-02-23] MEDS: BENZTROPINE MESYLATE 1 MG TAB PO SCH ×3 (09:49→20:34)
[2021-02-23] MEDS: OXcarbazepine 150 MG TABLET PO SCH ×2 (09:49→20:35)
[2021-02-23] MEDS: CALCIUM CARBONATE 1250MG TAB PO SCH (09:50)
[2021-02-23] MEDS: ASCORBIC ACID 500 MG TAB PO SCH (09:50)
[2021-02-23] MEDS: PRAVASTATIN SOD 20 MG TAB PO SCH (09:50)
[2021-02-23] MEDS: FEXOFENADINE 60 MG TAB PO SCH (09:50)
[2021-02-23] MEDS: HYDROCORTISONE 10 MG TAB PO SCH ×2 (09:50→15:09)
[2021-02-23] MEDS: ESCITALOPRAM OXALATE 20 MG TAB PO SCH (09:50)
[2021-02-23] MEDS: levETIRAcetam 500 MG TAB PO SCH ×2 (09:51→20:37)
[2021-02-23] MEDS: TOPIRAMATE 100 MG TAB PO SCH ×2 (09:51→20:35)
[2021-02-23] MEDS: rifAXIMin 550 MG TABLET PO SCH ×2 (09:51→20:35)
[2021-02-23] MEDS: rOPINIRole HCL 0.25 MG TABLET PO SCH ×2 (09:51→20:34)
[2021-02-23] MEDS: LIDOCAINE 5% 1 PATCH TD SCH (09:52)
[2021-02-23] MEDS: LACTULOSE SYRUP 20 GM/30 ML UDC PO SCH ×3 (09:52→20:35)
[2021-02-23] MEDS: MAGNESIUM OXIDE 400 MG TAB PO SCH ×2 (09:52→20:36)
[2021-02-23] MEDS: DICLOFENAC SOD 1% GEL 100 GM TUBE EXT SCH ×4 (09:53→20:36)
[2021-02-23] MEDS: CEROVITE ADV FORMULA TAB PO SCH (13:13)
[2021-02-23] MEDS: VITAMIN B COMPLEX TAB PO SCH (13:13)
[2021-02-23] MEDS: ADVANCED PROBIOTIC 1250 MG CAPSULE PO SCH (13:13)
[2021-02-23] MEDS: ZINC SULFATE 220 MG CAPSULE PO SCH (13:14)
--- NOTE | 2021-02-23 14:10 | Hospitalist Progress Note ---
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 Patient follows with gastroenterology, last seen by Dr. Toledo on 10/11/20. Patient had an EGD in June 2020 which showed no varices and mild portal-hypertensive gastropathy. . HCV screening has been completed and is negative. AFP on 03/09/2019 = 2.6. INR =1.3. Elevation of AP and Tbili comparable to prior levels. -LFTs stable Compensated at this time Hepatic Encephalopathy -Continue Lactulose, Rifaximin 550 mg p.o. twice daily, Titrate to 2-3 soft BMs/day Pepcid 20mg po qHS - -Patient to have US in 1 year for HCC surveillance and EGD in 3 years for variceal screening. (3) Diabetes mellitus: Plan: Diabetes: Patient with type 2 diabetes, well controlled, long-term use of insulin. Last hemoglobin A1c=5.6 on 05/23/20. Patient follows with Endocrinology/Diabetes education. Last seen on 01/04/21. -Continue Lantus while here, Tresiba as outpt -ISS -Goal blood sugar 100 - 140 -Recommend annual A1c monitoring -Followup with nurse educator outpatient as instructed (4) Seizure: Plan: Seizure disorder: Patient with history of seizure. She follows with neurology, last seen on 10/30/20 - follows for mixed tremor as well as dyskinesia and seizure history, parkinsonism. EEG completed in May 2018 revealed a generalized spike and slow wave abnormality consistent with an underlying generalized seizure disorder. Patient had an MRI brain completed in October 2017 which was unremarkable. Patient failed VNS placement in the past, device was explanted. Presently on topiramate, Trileptal and Keppra. 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 This has been discussed by the PCP. Target process complete and awaiting bed availability. Would be stable for D/C pending arrangements Admission and Anticipated Discharge Date Admission Date: January 31, 2021 Subjective pt has no complaints states knee and urine are a bit better, looking forward to seeing urine resulted staph >100,000 Review of Systems Review of Systems: Mild distress and fatigue no headache, no visual changes no speech or swallowing issues no chest pain, pressure or palpitations no shortness of breath, cough or wheezes no abdominal pain, nausea or vomiting, diarrhea or constipation no dysuria, hematuria or frequency no focal joint pain or swelling no back pain, CVA tenderness or radicular pain no bruising, bleeding or rashes no focal signs of weakness or numbness or altered sensation no complaints of anxiety or depression. Physical Exam Physical Exam: The patient appeared well Vital signs as documented. Lungs are clear to auscultation and appear unlabored Cardiac exam, Rhythm is regular.. No murmurs, rubs or gallops. Abdominal exam reveals normal bowel sounds, soft non tender, no masses Extremities are nonedematous and both pedal pulses are normal. Neurologic exam is alert and oriented, no focal loss of strength or sensation Skin is without bruises or rashes Psychologically is without concerns for anxiety or depression. Results & Data Results & Data ([facility]) Vital Signs (Past 12 Hours) Vital Signs Temp Pulse Resp BP Pulse Ox 02/23/21 08:56 98.4 F 58 L 16 134/73 98 PG Care Time/CCT Total # of Minutes Spent Total Time Spent with Patient: Total time spent is greater than 50% in coordination of care (as documented) at patient's floor/unit and/or counseling patient: Coding Level of Care Code 10224 Subseq Hosp Care Lvl 2 Diagnoses Acute UTI N39.0 Cirrhosis K74.60 Diabetes mellitus E11.9 Seizure R56.9 Myoclonic seizure G40.409 Hyperammonemia E72.20 Parkinsonism G20
[2021-02-23] MEDS: CHOLECALCIFEROL 1,000 UNITS 25 MCG TAB PO SCH (15:08)
[2021-02-23] MEDS: LIDOCAINE VISCOUS 2% SOLN 60 ML, diphenhydrAMINE Syrup 150 MG, ALUMINUM/MAGNESIUM SUSP ... PO PRN (16:40)
[2021-02-23] MEDS: CLINDAMYCIN HCL 150 MG CAP PO SCH (18:16)
[2021-02-23] MEDS: ACETAMINOPHEN 500 MG TAB PO SCH (20:34)
[2021-02-23] MEDS: FAMOTIDINE 20 MG TAB PO SCH (20:34)
[2021-02-23] MEDS: MELATONIN 3 MG TAB PO SCH (20:40)
[2021-02-23] MEDS: [UNRECOGNIZED DRUG - REMARK] SQ SCH (20:46)
[2021-02-24] MEDS: CLINDAMYCIN HCL 150 MG CAP PO SCH ×4 (00:46→17:59)
[2021-02-24] MEDS: LEVOTHYROXINE SODIUM 50 MCG TABLET PO SCH (05:40)
[2021-02-24] MEDS: PROMETHAZINE HCL 25 MG TAB PO PRN (06:13)
[2021-02-24] MEDS: INSULIN GLARGINE SOLOSTAR 100 UNITS/ML 3 ML PEN SC SCH (09:31)
[2021-02-24] MEDS: INSULIN ASPART 100 UNITS/ML 3 ML PEN SC SCH ×4 (09:31→21:51)
[2021-02-24] MEDS: DICLOFENAC SOD 1% GEL 100 GM TUBE EXT SCH ×4 (09:33→21:44)
[2021-02-24] MEDS: HYDROCORTISONE 10 MG TAB PO SCH ×2 (09:33→17:59)
[2021-02-24] MEDS: FEXOFENADINE 60 MG TAB PO SCH (09:33)
[2021-02-24] MEDS: MAGNESIUM OXIDE 400 MG TAB PO SCH ×2 (09:34→21:48)
[2021-02-24] MEDS: CHOLECALCIFEROL 1,000 UNITS 25 MCG TAB PO SCH (09:34)
[2021-02-24] MEDS: ESCITALOPRAM OXALATE 20 MG TAB PO SCH (09:34)
[2021-02-24] MEDS: PRAVASTATIN SOD 20 MG TAB PO SCH (09:35)
[2021-02-24] MEDS: CALCIUM CARBONATE 1250MG TAB PO SCH (09:35)
[2021-02-24] MEDS: BENZTROPINE MESYLATE 1 MG TAB PO SCH ×3 (09:35→21:43)
[2021-02-24] MEDS: rOPINIRole HCL 0.25 MG TABLET PO SCH ×2 (09:35→21:40)
[2021-02-24] MEDS: OXcarbazepine 150 MG TABLET PO SCH ×2 (09:36→21:41)
[2021-02-24] MEDS: TOPIRAMATE 100 MG TAB PO SCH ×2 (09:36→21:41)
[2021-02-24] MEDS: rifAXIMin 550 MG TABLET PO SCH ×2 (09:36→21:39)
[2021-02-24] MEDS: LIDOCAINE 5% 1 PATCH TD SCH (09:37)
[2021-02-24] MEDS: LACTULOSE SYRUP 20 GM/30 ML UDC PO SCH ×3 (09:37→21:45)
[2021-02-24] MEDS: ASCORBIC ACID 500 MG TAB PO SCH (09:37)
[2021-02-24] MEDS: levETIRAcetam 500 MG TAB PO SCH ×2 (09:37→21:40)
[2021-02-24] MEDS: HEPARIN 100 UNIT/ML 5ML FLUSH FLUSH PRN (12:28)
[2021-02-24] MEDS: CEROVITE ADV FORMULA TAB PO SCH (12:28)
[2021-02-24] MEDS: VITAMIN B COMPLEX TAB PO SCH (12:28)
[2021-02-24] MEDS: ZINC SULFATE 220 MG CAPSULE PO SCH (12:29)
[2021-02-24] MEDS: ADVANCED PROBIOTIC 1250 MG CAPSULE PO SCH (12:29)
--- NOTE | 2021-02-24 16:41 | Hospitalist Progress Note ---
Date of Service February 24, 2021 Assessment & Plan (1) Acute UTI: Plan: Acute UTI - no sepsis/no fevers - Ur cx with Proteus resistance to FQs -completed 5 day course of Ceftriaxone 2gm IV daily - urinary symptoms return 02/21, recultured showing coag neg staph not saprophytic, no history of staph UTI in past will use clindamycin which uptodate suggest would cover - however if mentation changes or fever would consider switching to IV coverage -- Resistant to oxacillin and Bactrim - vaginal itching/burning and was treated with clotrimazole x 7 days and finished treatment 02/21 (2) Cirrhosis: Plan: Cirrhosis secondary to STEVE, portal hypertension. Patient follows with gastroenterology, last seen by Dr. Toledo on 10/11/20. Patient had an EGD in June 2020 which showed no varices and mild portal-hypertensive gastropathy. . HCV screening has been completed and is negative. AFP on 03/09/2019 = 2.6. INR =1.3. Elevation of AP and Tbili comparable to prior levels. -LFTs stable Compensated at this time Hepatic Encephalopathy -Continue Lactulose, Rifaximin 550 mg p.o. twice daily, Titrate to 2-3 soft BMs/day Pepcid 20mg po qHS - -Patient to have US in 1 year for HCC surveillance and EGD in 3 years for variceal screening. (3) Diabetes mellitus: Plan: Diabetes: Patient with type 2 diabetes, well controlled, long-term use of insulin. Last hemoglobin A1c=5.6 on 05/23/20. Patient follows with Endocrinology/Diabetes education. Last seen on 01/04/21. -Continue Lantus while here, [place] as outpt -ISS -Goal blood sugar 100 - 140 -Recommend annual A1c monitoring -Followup with agricultural extension educator outpatient as instructed (4) Seizure: Plan: Seizure disorder: Patient with history of seizure. She follows with neurology, last seen on 10/30/20 - follows for mixed tremor as well as dyskinesia and seizure history, parkinsonism. EEG completed in May 2018 revealed a generalized spike and slow wave abnormality consistent with an underlying generalized seizure disorder. Patient had an MRI brain completed in October 2017 which was unremarkable. Patient failed VNS placement in the past, device was explanted. Presently on topiramate, Trileptal and Keppra. 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 This has been discussed by the PCP. Target process complete and awaiting bed availability. Would be stable for D/C pending arrangements Admission and Anticipated Discharge Date Admission Date: January 31, 2021 Subjective Reports doing well today. Reports no longer having urinary symptoms but reports just feeling tired today. She is alert and oriented and recall is appropriate. Review of Systems Review of Systems: All systems reviewed & are unremarkable except as noted in Subjective Physical Exam Physical Exam: PHYSICAL EXAM General Appearance: Frail; in NAD who is A&O x 3 HEENT: Head is normocephalic/atraumatic; Hearing grossly intact; anicteric sclera Neck: Supple; Trachea midline; Neg JVD Heart: RRR with no M/G/R Lungs: CTA in all lung dyer bilaterally; Respirations unlabored; Neg accessory muscle use Abdomen: Soft, non-tender, non-distended; Positive BS x 4 quadrants Neurological: Speech clear; +tremor; +choreiform movements of head Psychiatric: Appropriate mood/affect Skin: Normal Color; Warm/Dry Results & Data Results & Data ([facility]) Vital Signs (Past 12 Hours) Vital Signs Temp Pulse Resp BP BP Pulse Ox 02/24/21 16:15 36.9 C 85 16 108/65 97 02/24/21 07:26 36.6 C 65 16 147/89 H 98 PG Care Time/CCT Total # of Minutes Spent Total Time Spent with Patient: Total time spent is greater than 50% in coordination of care (as documented) at patient's floor/unit and/or counseling patient: Coding Level of Care Code 91566 Subseq Hosp Care Lvl 2 Diagnoses Acute UTI N39.0 Cirrhosis K74.60 Diabetes mellitus E11.9 Seizure R56.9 Myoclonic seizure G40.409 Hyperammonemia E72.20 Parkinsonism G20
[2021-02-24] MEDS: ACETAMINOPHEN 500 MG TAB PO SCH (21:43)
[2021-02-24] MEDS: FAMOTIDINE 20 MG TAB PO SCH (21:43)
[2021-02-24] MEDS: MELATONIN 3 MG TAB PO SCH (21:45)
[2021-02-24] MEDS: [UNRECOGNIZED DRUG - REMARK] SQ SCH (21:46)
[2021-02-25] MEDS: CLINDAMYCIN HCL 150 MG CAP PO SCH ×4 (00:49→17:57)
[2021-02-25] MEDS: LEVOTHYROXINE SODIUM 50 MCG TABLET PO SCH (05:31)
[2021-02-25 05:39] LABS: Hematocrit (blood only) 30.3 % (37-47); Hemoglobin 10.4 g/dL (12.0-16.0); Mean Corpuscular Hemoglobin 36.2 pg (25-34); Mean Corpuscular Hgb Conc 34.3 g/dL (32-36); Mean Corpuscular Volume 105.6 fL (80-100); RDW Coefficient of Variation 12.5 % (11.5-14.5); RDW Standard Deviation 48.2 fL (36.4-46.3); Red Blood Count 2.87 M/uL (4.2-5.4)
[2021-02-25 06:00] LABS: BUN Creatinine Ratio 34.2 (10-20); Est GFR (African American) 132.7 ml/min; Est GFR (Non-African American) 114.5 ml/min; Potassium 4.3 mmol/L (3.5-5.1)
[2021-02-25 06:27] LABS: Mean Platelet Volume 9.7 fL (7.4-10.4); Platelet Count 72 K/uL (130-400); Platelet Estimate Decreased (Normal)
[2021-02-25] MEDS: LACTULOSE SYRUP 20 GM/30 ML UDC PO SCH ×2 (08:56→16:02)
[2021-02-25] MEDS: ESCITALOPRAM OXALATE 20 MG TAB PO SCH (08:57)
[2021-02-25] MEDS: CHOLECALCIFEROL 1,000 UNITS 25 MCG TAB PO SCH (08:57)
[2021-02-25] MEDS: HYDROCORTISONE 10 MG TAB PO SCH ×2 (08:57→16:02)
[2021-02-25] MEDS: OXcarbazepine 150 MG TABLET PO SCH ×2 (08:57→21:28)
[2021-02-25] MEDS: FEXOFENADINE 60 MG TAB PO SCH (08:57)
[2021-02-25] MEDS: rOPINIRole HCL 0.25 MG TABLET PO SCH ×2 (08:58→21:28)
[2021-02-25] MEDS: LIDOCAINE 5% 1 PATCH TD SCH (08:58)
[2021-02-25] MEDS: rifAXIMin 550 MG TABLET PO SCH ×2 (08:58→21:28)
[2021-02-25] MEDS: MAGNESIUM OXIDE 400 MG TAB PO SCH ×2 (08:58→21:27)
[2021-02-25] MEDS: PRAVASTATIN SOD 20 MG TAB PO SCH (08:58)
[2021-02-25] MEDS: CALCIUM CARBONATE 1250MG TAB PO SCH (08:58)
[2021-02-25] MEDS: ASCORBIC ACID 500 MG TAB PO SCH (08:58)
[2021-02-25] MEDS: TOPIRAMATE 100 MG TAB PO SCH ×2 (08:59→21:29)
[2021-02-25] MEDS: BENZTROPINE MESYLATE 1 MG TAB PO SCH ×3 (08:59→21:27)
[2021-02-25] MEDS: DICLOFENAC SOD 1% GEL 100 GM TUBE EXT SCH ×4 (08:59→21:29)
[2021-02-25] MEDS: levETIRAcetam 500 MG TAB PO SCH ×2 (08:59→21:28)
[2021-02-25] MEDS: INSULIN GLARGINE SOLOSTAR 100 UNITS/ML 3 ML PEN SC SCH (08:59)
[2021-02-25] MEDS: INSULIN ASPART 100 UNITS/ML 3 ML PEN SC SCH ×4 (09:00→21:51)
--- NOTE | 2021-02-25 12:10 | Hospitalist Progress Note ---
Date of Service February 25, 2021 Assessment & Plan (1) Acute UTI: Plan: Acute UTI - no sepsis/no fevers - Ur cx with Proteus resistance to FQs -completed 5 day course of Ceftriaxone 2gm IV daily - urinary symptoms return 02/21, recultured showing coag neg staph not saprophytic, no history of staph UTI in past will use clindamycin which uptodate suggest would cover - however if mentation changes or fever would consider switching to IV coverage -- Resistant to oxacillin and Bactrim - vaginal itching/burning and was treated with clotrimazole x 7 days and finished treatment 02/21 (2) Cirrhosis: Plan: Cirrhosis secondary to STEVE, portal hypertension. Patient follows with gastroenterology, last seen by Dr. Toledo on 10/11/20. Patient had an EGD in June 2020 which showed no varices and mild portal-hypertensive gastropathy. . HCV screening has been completed and is negative. AFP on 03/09/2019 = 2.6. INR =1.3. Elevation of AP and Tbili comparable to prior levels. -LFTs stable Compensated at this time Hepatic Encephalopathy - At baseline mentation currently -Continue Lactulose, Rifaximin 550 mg p.o. twice daily, Titrate to 2-3 soft BMs/day - Pepcid 20mg po qHS - Ammonia slightly elevated compared to last check but is in normal range for patient - was checked due to tiredness, otherwise her mentation has been baseline x multiple weeks -Patient to have US in 1 year for HCC surveillance and EGD in 3 years for variceal screening. (3) Diabetes mellitus: Plan: Diabetes: Patient with type 2 diabetes, well controlled, long-term use of insulin. Last hemoglobin A1c=5.6 on 05/23/20. Patient follows with Endocrinology/Diabetes education. Last seen on 01/04/21. -Continue Lantus while here, Tresiba as outpt -ISS -Goal blood sugar 100 - 140 -Recommend annual A1c monitoring - Is on hydrocortisone BID for suspected adrenal insufficiency - endocrinology questions the validity of ACTH deficiency diagnosis and plan to repeat testing to confirm diagnosis as outpatient -Followup with clinical staff educator outpatient as instructed (4) Seizure: Plan: Seizure disorder: Patient with history of seizure. She follows with neurology, last seen on 10/30/20 - follows for mixed tremor as well as dyskinesia and seizure history, parkinsonism. EEG completed in May 2018 revealed a generalized spike and slow wave abnormality consistent with an underlying generalized seizure disorder. Patient had an MRI brain completed in October 2017 which was unremarkable. Patient failed VNS placement in the past, device was explanted. Presently on topiramate, Trileptal and Keppra. 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 This has been discussed by the PCP. Target process complete and awaiting bed availability. Would be stable for D/C pending arrangements Admission and Anticipated Discharge Date Admission Date: January 31, 2021 Subjective Reports no complaints today. States all of her urinary symptoms have resolved. Still a bit tired today. Ammonia was checked and slightly elevated from last check however is not in a bad range for her and she appears at her baseline mentation. She continues to tolerate her diet. Having adequate bowel movements Review of Systems Review of Systems: All systems reviewed & are unremarkable except as noted in Subjective Physical Exam Physical Exam: PHYSICAL EXAM General Appearance: Frail; in NAD who is A&O x 3 HEENT: Head is normocephalic/atraumatic; Hearing grossly intact; anicteric sclera Neck: Supple; Trachea midline; Neg JVD Heart: RRR with no M/G/R Lungs: CTA in all lung dyer bilaterally; Respirations unlabored; Neg accessory muscle use Abdomen: Soft, non-tender, non-distended; Positive BS x 4 quadrants Neurological: Speech clear; +tremor; +choreiform movements of head (seems a bit less today) Psychiatric: Appropriate mood/affect Skin: Normal Color; Warm/Dry Results & Data Results & Data ([facility]) Vital Signs (Past 12 Hours) Vital Signs Temp Pulse Resp BP Pulse Ox 02/25/21 08:21 36.7 C 59 L 18 165/71 H 99 PG Care Time/CCT Total # of Minutes Spent Total Time Spent with Patient: Total time spent is greater than 50% in coordination of care (as documented) at patient's floor/unit and/or counseling patient: Coding Level of Care Code 57679 Subseq Hosp Care Lvl 2 Diagnoses Acute UTI N39.0 Cirrhosis K74.60 Diabetes mellitus E11.9 Seizure R56.9 Myoclonic seizure G40.409 Hyperammonemia E72.20 Parkinsonism G20
[2021-02-25] MEDS: ADVANCED PROBIOTIC 1250 MG CAPSULE PO SCH (12:43)
[2021-02-25] MEDS: CEROVITE ADV FORMULA TAB PO SCH (12:43)
[2021-02-25] MEDS: VITAMIN B COMPLEX TAB PO SCH (12:43)
[2021-02-25] MEDS: ZINC SULFATE 220 MG CAPSULE PO SCH (12:44)
[2021-02-25] MEDS: [UNRECOGNIZED DRUG - REMARK] SQ SCH (21:26)
[2021-02-25] MEDS: MELATONIN 3 MG TAB PO SCH (21:26)
[2021-02-25] MEDS: ACETAMINOPHEN 500 MG TAB PO SCH (21:27)
[2021-02-25] MEDS: FAMOTIDINE 20 MG TAB PO SCH (21:27)
[2021-02-26] MEDS: CLINDAMYCIN HCL 150 MG CAP PO SCH ×5 (00:19→23:48)
[2021-02-26] MEDS: LACTULOSE SYRUP 20 GM/30 ML UDC PO SCH ×5 (00:19→20:20)
[2021-02-26] MEDS: LEVOTHYROXINE SODIUM 50 MCG TABLET PO SCH (06:27)
[2021-02-26] MEDS: FEXOFENADINE 60 MG TAB PO SCH (08:54)
[2021-02-26] MEDS: OXcarbazepine 150 MG TABLET PO SCH ×2 (08:54→20:17)
[2021-02-26] MEDS: TOPIRAMATE 100 MG TAB PO SCH ×2 (08:54→20:17)
[2021-02-26] MEDS: ESCITALOPRAM OXALATE 20 MG TAB PO SCH (08:54)
[2021-02-26] MEDS: HYDROCORTISONE 10 MG TAB PO SCH ×2 (08:54→14:07)
[2021-02-26] MEDS: rifAXIMin 550 MG TABLET PO SCH ×2 (08:54→20:16)
[2021-02-26] MEDS: rOPINIRole HCL 0.25 MG TABLET PO SCH ×2 (08:54→20:16)
[2021-02-26] MEDS: levETIRAcetam 500 MG TAB PO SCH ×2 (08:54→20:16)
[2021-02-26] MEDS: MAGNESIUM OXIDE 400 MG TAB PO SCH ×2 (08:54→20:19)
[2021-02-26] MEDS: PRAVASTATIN SOD 20 MG TAB PO SCH (08:54)
[2021-02-26] MEDS: CHOLECALCIFEROL 1,000 UNITS 25 MCG TAB PO SCH (08:55)
[2021-02-26] MEDS: CALCIUM CARBONATE 1250MG TAB PO SCH (08:55)
[2021-02-26] MEDS: ASCORBIC ACID 500 MG TAB PO SCH (08:55)
[2021-02-26] MEDS: BENZTROPINE MESYLATE 1 MG TAB PO SCH ×3 (08:55→20:19)
[2021-02-26] MEDS: LIDOCAINE 5% 1 PATCH TD SCH (09:02)
[2021-02-26] MEDS: DICLOFENAC SOD 1% GEL 100 GM TUBE EXT SCH ×5 (09:02→20:20)
[2021-02-26] MEDS: INSULIN GLARGINE SOLOSTAR 100 UNITS/ML 3 ML PEN SC SCH (09:17)
[2021-02-26] MEDS: INSULIN ASPART 100 UNITS/ML 3 ML PEN SC SCH ×4 (09:18→21:48)
[2021-02-26] MEDS: CEROVITE ADV FORMULA TAB PO SCH (12:35)
[2021-02-26] MEDS: VITAMIN B COMPLEX TAB PO SCH (12:35)
[2021-02-26] MEDS: ZINC SULFATE 220 MG CAPSULE PO SCH (12:35)
[2021-02-26] MEDS: ADVANCED PROBIOTIC 1250 MG CAPSULE PO SCH (12:36)
--- NOTE | 2021-02-26 17:34 | Hospitalist Progress Note ---
Date of Service February 26, 2021 Assessment & Plan (1) Acute UTI: Plan: - Urine cx with Proteus resistance to FQs on 01/31, s/p treatment with Ceftriaxone - Urinary sx return 02/21, recultured showing coag neg staph not saprophytic, no history of staph UTI in past will use clindamycin which UTD suggest would cover - however if mentation changes or fever would consider switching to IV coverage. Treat for 7 days. 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 Patient follows with gastroenterology, last seen by Dr. Toledo on 10/11/20. Patient had an EGD in June 2020 which showed no varices and mild portal-hypertensive gastropathy. . HCV screening has been completed and is negative. AFP on 03/09/2019 = 2.6. INR =1.3. Elevation of AP and Tbili comparable to prior levels. - LFTs stable - Initially hospitalized w/ hepatic encephalopathy - at baseline mentation currently - Continue Lactulose, Rifaximin 550 mg p.o. twice daily, Titrate to 2-3 soft BMs/day - Pepcid 20mg po qHS - Ammonia slightly elevated compared to last check but is in normal range for patient - was checked due to tiredness, otherwise her mentation has been baseline x multiple weeks - Patient to have US in 1 year for HCC surveillance and EGD in 3 years for variceal screening. (3) Diabetes mellitus: Plan: Patient with type 2 diabetes, well controlled, long-term use of insulin. Last hemoglobin A1c=5.6 on 05/23/20. Patient follows with Endocrinology/Diabetes education. Last seen on 01/04/21. - Continue Lantus while here, Tresiba as outpt - ISS - Goal blood sugar 100 - 140 - Recommend annual A1c monitoring - Is on hydrocortisone BID for suspected adrenal insufficiency - endocrinology questions the validity of ACTH deficiency diagnosis and plan to repeat testing to confirm diagnosis as outpatient - Follow up with medical educator outpatient as instructed (4) Seizure: Plan: Seizure disorder: Patient with history of seizure. She follows with neurology, last seen on 10/30/20 - follows for mixed tremor as well as dyskinesia and seizure history, parkinsonism. EEG completed in May 2018 revealed a generalized spike and slow wave abnormality consistent with an underlying generalized seizure disorder. Patient had an MRI brain completed in October 2017 which was unremarkable. Patient failed VNS placement in the past, device was explanted. Presently on topiramate, Trileptal and Keppra. 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 This has been discussed by the PCP. Target process complete and awaiting bed availability. Is stable for D/C pending arrangements Admission and Anticipated Discharge Date Admission Date: January 31, 2021 Jeffry Ibanez was seen on rounds this morning. Pt remains hospitalized initially for AMS which was found to be secondary to hepatic encephalopathy coupled by acute UTI. Her UTI is s/p abx treatment and her hepatic encephalopathy has resolved. However, pt has been awaiting placement for several days due to waiting for completion of target assessment. Currently, no beds. Case management is on board. Pt's UTI sx returned on 02/21, initiated treatment with Clindamycin d/t growth of staph. She has no other complaints other than chronic R knee pain. Review of Systems Review of Systems: CONSTITUTIONAL: Denies weight loss/gain, fever and chills, fatigue, malaise, generalized weakness. HEENT: Denies changes in vision and hearing. RESPIRATORY: Denies SOB, cough, wheezing. CV: Denies palpitations, CP, lower extremity edema, orthopnea, PND. GI: Denies abdominal pain, nausea, vomiting and diarrhea. : Denies dysuria and urinary frequency, urgency, hesitancy. MUSCULOSKELETAL: +right knee pain. SKIN: Denies rash and pruritus. NEUROLOGICAL: Denies headache, syncope, focal weakness, numbness, tingling. PSYCHIATRIC: Denies recent changes in mood. Denies anxiety and depression. Physical Exam Physical Exam: GENERAL: 55 yo WF. Well-developed, well-nourished. NAD. LUNGS: Clear to auscultation bilaterally. No accessory muscle use. No W/R/R. CARDIOVASCULAR: Regular rate and rhythm. No M/G/R. No JVD. ABDOMEN: Soft, non-tender and non-distended. No palpable masses. Bowel sounds normoactive x 4 quad. EXTREMITIES: No edema. Non-tender. Peripheral pulses +2/4. NEUROLOGIC: A&O x3. Head Tremor noted. PSYCHIATRIC: Cooperative. Appropriate mood and affect. SKIN: Warm, dry, intact. No rashes or lesions. Results & Data Results & Data ([facility]) Vital Signs (Past 12 Hours) Vital Signs Temp Pulse Resp BP BP Pulse Ox 02/26/21 16:21 36.7 C 72 18 140/69 98 02/26/21 07:34 36.7 C 70 18 134/73 94 Laboratory Results Spec: [id number] Collected: 02/22/21 Received: 02/22/[address]: Erick Rice MD Copy To: Amalia Beatty D.O. Source: Urine,Clean Catch OV Order: Ordered: Urine Culture Procedure Result Verified Site Urine Culture Final 02/24/21 Organism 1 Coag neg staph not saprophytic Shushan Count >100,000 CFU/ml Sens Sensitivities to Follow +Mix Urine Plus Low Counts of Other Mixed Griselda CNSns RX M.I.C. --- --------- Daptomycin S <=0.5 Nitrofurantoin S <=32 Oxacillin R >2 Tetracycline S <=4 Trimeth/Sulfa R >2/38 Vancomycin S 2 S = SENSITIVE I = INTERMEDIATE R = RESISTANT PG Care Time/CCT Total # of Minutes Spent Total Time Spent with Patient: Total time spent is greater than 50% in coordination of care (as documented) at patient's floor/unit and/or counseling patient: Coding Level of Care Code 81683 Subseq Hosp Care Lvl 2 Diagnoses Acute UTI N39.0 Cirrhosis K74.60 Diabetes mellitus E11.9 Seizure R56.9 Myoclonic seizure G40.409 Hyperammonemia E72.20 Parkinsonism G20
[2021-02-26] MEDS: FAMOTIDINE 20 MG TAB PO SCH (20:16)
[2021-02-26] MEDS: ACETAMINOPHEN 500 MG TAB PO SCH (20:19)
[2021-02-26] MEDS: [UNRECOGNIZED DRUG - REMARK] SQ SCH (20:20)
[2021-02-26] MEDS: MELATONIN 3 MG TAB PO SCH (20:31)
[2021-02-27] MEDS: LEVOTHYROXINE SODIUM 50 MCG TABLET PO SCH (05:46)
[2021-02-27] MEDS: CLINDAMYCIN HCL 150 MG CAP PO SCH ×4 (05:46→23:50)
[2021-02-27] MEDS: PROMETHAZINE HCL 25 MG TAB PO PRN ×2 (05:48→20:04)
[2021-02-27] MEDS: DICLOFENAC SOD 1% GEL 100 GM TUBE EXT SCH ×4 (09:21→20:13)
[2021-02-27] MEDS: HYDROCORTISONE 10 MG TAB PO SCH ×2 (09:21→15:54)
[2021-02-27] MEDS: CHOLECALCIFEROL 1,000 UNITS 25 MCG TAB PO SCH (09:22)
[2021-02-27] MEDS: rifAXIMin 550 MG TABLET PO SCH ×2 (09:22→20:11)
[2021-02-27] MEDS: LACTULOSE SYRUP 20 GM/30 ML UDC PO SCH ×3 (09:22→20:13)
[2021-02-27] MEDS: FEXOFENADINE 60 MG TAB PO SCH (09:23)
[2021-02-27] MEDS: BENZTROPINE MESYLATE 1 MG TAB PO SCH ×3 (09:23→20:12)
[2021-02-27] MEDS: MAGNESIUM OXIDE 400 MG TAB PO SCH ×2 (09:23→20:11)
[2021-02-27] MEDS: OXcarbazepine 150 MG TABLET PO SCH ×2 (09:23→20:11)
[2021-02-27] MEDS: PRAVASTATIN SOD 20 MG TAB PO SCH (09:24)
[2021-02-27] MEDS: ASCORBIC ACID 500 MG TAB PO SCH (09:24)
[2021-02-27] MEDS: CALCIUM CARBONATE 1250MG TAB PO SCH (09:24)
[2021-02-27] MEDS: ESCITALOPRAM OXALATE 20 MG TAB PO SCH (09:24)
[2021-02-27] MEDS: levETIRAcetam 500 MG TAB PO SCH ×2 (09:25→20:10)
[2021-02-27] MEDS: rOPINIRole HCL 0.25 MG TABLET PO SCH ×2 (09:25→20:10)
[2021-02-27] MEDS: TOPIRAMATE 100 MG TAB PO SCH ×2 (09:25→20:11)
[2021-02-27] MEDS: INSULIN GLARGINE SOLOSTAR 100 UNITS/ML 3 ML PEN SC SCH (09:26)
[2021-02-27] MEDS: LIDOCAINE 5% 1 PATCH TD SCH (09:26)
[2021-02-27] MEDS: INSULIN ASPART 100 UNITS/ML 3 ML PEN SC SCH ×4 (09:28→21:34)
[2021-02-27] MEDS: ZINC SULFATE 220 MG CAPSULE PO SCH (13:04)
[2021-02-27] MEDS: VITAMIN B COMPLEX TAB PO SCH (13:04)
[2021-02-27] MEDS: CEROVITE ADV FORMULA TAB PO SCH (13:04)
[2021-02-27] MEDS: ADVANCED PROBIOTIC 1250 MG CAPSULE PO SCH (13:05)
--- NOTE | 2021-02-27 15:13 | Hospitalist Progress Note ---
Date of Service February 27, 2021 Assessment & Plan (1) Acute UTI: Plan: - Urine cx with Proteus resistance to FQs on 01/31, s/p treatment with Ceftriaxone - Urinary sx return 02/21, recultured showing coag neg staph not saprophytic, no history of staph UTI in past will use clindamycin which UTD suggest would cover - however if mentation changes or fever would consider switching to IV coverage. Treat for 7 days, currently on day #4. 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 Patient follows with gastroenterology, last seen by Dr. Toledo on 10/11/20. Patient had an EGD in June 2020 which showed no varices and mild portal-hypertensive gastropathy. . HCV screening has been completed and is negative. AFP on 03/09/2019 = 2.6. INR =1.3. Elevation of AP and Tbili comparable to prior levels. - LFTs stable - Initially hospitalized w/ hepatic encephalopathy - at baseline mentation currently - Continue Lactulose, Rifaximin 550 mg p.o. twice daily, Titrate to 2-3 soft BMs/day - Pepcid 20mg po qHS - Ammonia slightly elevated compared to last check but is in normal range for patient - was checked due to tiredness, otherwise her mentation has been baseline x multiple weeks - Patient to have US in 1 year for HCC surveillance and EGD in 3 years for variceal screening. (3) Diabetes mellitus: Plan: Patient with type 2 diabetes, well controlled, long-term use of insulin. Last hemoglobin A1c=5.6 on 05/23/20. Patient follows with Endocrinology/Diabetes education. Last seen on 01/04/21. - Continue Lantus while here, Tresiba as outpt - ISS - Goal blood sugar 100 - 140 - Recommend annual A1c monitoring - Is on hydrocortisone BID for suspected adrenal insufficiency - endocrinology questions the validity of ACTH deficiency diagnosis and plan to repeat testing to confirm diagnosis as outpatient - Follow up with emergency services dispatcher outpatient as instructed (4) Seizure: Plan: Seizure disorder: Patient with history of seizure. She follows with neurology, last seen on 10/30/20 - follows for mixed tremor as well as dyskinesia and seizure history, parkinsonism. EEG completed in May 2018 revealed a generalized spike and slow wave abnormality consistent with an underlying generalized seizure disorder. Patient had an MRI brain completed in October 2017 which was unremarkable. Patient failed VNS placement in the past, device was explanted. Presently on topiramate, Trileptal and Keppra. 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 This has been discussed by the PCP. Target process complete and awaiting bed availability. Is stable for D/C pending arrangements Admission and Anticipated Discharge Date Admission Date: January 31, 2021 Jeffry Ibanez was seen on rounds this morning. Pt remains hospitalized initially for AMS which was found to be secondary to hepatic encephalopathy coupled by acute UTI. Her UTI is s/p abx treatment and her hepatic encephalopathy has resolved. However, pt has been awaiting placement for several days due pending target assessment which has since been completed. Currently, no beds. Case management is on board. Pt's UTI sx returned on 02/21, initiated treatment with Clindamycin d/t growth of staph. She has no other complaints other than chronic R knee pain but notes that it is better today. Review of Systems Review of Systems: CONSTITUTIONAL: Denies weight loss/gain, fever and chills, fatigue, malaise, generalized weakness. HEENT: Denies changes in vision and hearing. RESPIRATORY: Denies SOB, cough, wheezing. CV: Denies palpitations, CP, lower extremity edema, orthopnea, PND. GI: Denies abdominal pain, nausea, vomiting and diarrhea. : Denies dysuria and urinary frequency, urgency, hesitancy. MUSCULOSKELETAL: +right knee pain--better with rest, not bothersome currently. SKIN: Denies rash and pruritus. NEUROLOGICAL: Denies headache, syncope, focal weakness, numbness, tingling. PSYCHIATRIC: Denies recent changes in mood. Denies anxiety and depression. Physical Exam Physical Exam: GENERAL: 55 yo WF. Well-developed, well-nourished. NAD. LUNGS: Clear to auscultation bilaterally. No accessory muscle use. No W/R/R. CARDIOVASCULAR: Regular rate and rhythm. No M/G/R. No JVD. ABDOMEN: Soft, non-tender and non-distended. No palpable masses. Bowel sounds normoactive x 4 quad. EXTREMITIES: No edema. Non-tender. Peripheral pulses +2/4. NEUROLOGIC: A&O x3. Head Tremor noted. PSYCHIATRIC: Cooperative. Appropriate mood and affect. SKIN: Warm, dry, intact. No rashes or lesions. Results & Data Results & Data ([facility]) Vital Signs (Past 12 Hours) Vital Signs Temp Pulse Resp BP Pulse Ox 02/27/21 07:17 36.4 C L 119 H 18 133/71 95 PG Care Time/CCT Total # of Minutes Spent Total Time Spent with Patient: Total time spent is greater than 50% in coordination of care (as documented) at patient's floor/unit and/or counseling patient: Coding Level of Care Code 89978 Subseq Hosp Care Lvl 2 Diagnoses Acute UTI N39.0 Cirrhosis K74.60 Diabetes mellitus E11.9 Seizure R56.9 Myoclonic seizure G40.409 Hyperammonemia E72.20 Parkinsonism G20
[2021-02-27] MEDS: FAMOTIDINE 20 MG TAB PO SCH (20:12)
[2021-02-27] MEDS: ACETAMINOPHEN 500 MG TAB PO SCH (20:12)
[2021-02-27] MEDS: [UNRECOGNIZED DRUG - REMARK] SQ SCH (20:28)
[2021-02-27] MEDS: MELATONIN 3 MG TAB PO SCH (20:28)
[2021-02-28] MEDS: CLINDAMYCIN HCL 150 MG CAP PO SCH ×2 (05:41→13:16)
[2021-02-28] MEDS: LEVOTHYROXINE SODIUM 50 MCG TABLET PO SCH (05:41)
[2021-02-28] MEDS: PROMETHAZINE HCL 25 MG TAB PO PRN (06:54)
[2021-02-28] MEDS: DICLOFENAC SOD 1% GEL 100 GM TUBE EXT SCH ×4 (08:52→21:30)
[2021-02-28] MEDS: CALCIUM CARBONATE 1250MG TAB PO SCH (08:52)
[2021-02-28] MEDS: CHOLECALCIFEROL 1,000 UNITS 25 MCG TAB PO SCH (08:52)
[2021-02-28] MEDS: LACTULOSE SYRUP 20 GM/30 ML UDC PO SCH ×3 (08:52→21:29)
[2021-02-28] MEDS: BENZTROPINE MESYLATE 1 MG TAB PO SCH ×3 (08:53→21:29)
[2021-02-28] MEDS: ASCORBIC ACID 500 MG TAB PO SCH (08:53)
[2021-02-28] MEDS: MAGNESIUM OXIDE 400 MG TAB PO SCH ×2 (08:53→21:29)
[2021-02-28] MEDS: OXcarbazepine 150 MG TABLET PO SCH ×2 (08:53→21:28)
[2021-02-28] MEDS: ESCITALOPRAM OXALATE 20 MG TAB PO SCH (08:53)
[2021-02-28] MEDS: HYDROCORTISONE 10 MG TAB PO SCH ×2 (08:53→14:24)
[2021-02-28] MEDS: PRAVASTATIN SOD 20 MG TAB PO SCH (08:53)
[2021-02-28] MEDS: FEXOFENADINE 60 MG TAB PO SCH (08:53)
[2021-02-28] MEDS: TOPIRAMATE 100 MG TAB PO SCH ×2 (08:53→21:29)
[2021-02-28] MEDS: LIDOCAINE 5% 1 PATCH TD SCH (08:54)
[2021-02-28] MEDS: levETIRAcetam 500 MG TAB PO SCH ×2 (08:54→21:29)
[2021-02-28] MEDS: rOPINIRole HCL 0.25 MG TABLET PO SCH ×2 (08:54→21:29)
[2021-02-28] MEDS: rifAXIMin 550 MG TABLET PO SCH ×2 (08:54→21:29)
[2021-02-28] MEDS: INSULIN GLARGINE SOLOSTAR 100 UNITS/ML 3 ML PEN SC SCH (09:37)
[2021-02-28] MEDS: INSULIN ASPART 100 UNITS/ML 3 ML PEN SC SCH ×4 (09:38→21:52)
--- NOTE | 2021-02-28 10:54 | Hospitalist Progress Note ---
Date of Service February 28, 2021 Assessment & Plan (1) Acute UTI: Plan: - Urine cx with Proteus resistance to FQs on 01/31, s/p treatment with Ceftriaxone - Urinary sx return 02/21, recultured showing coag neg staph not saprophytic, no history of staph UTI in past will use clindamycin which UTD suggest would cover - however if mentation changes or fever would consider switching to IV coverage. Treat for 7 days, currently on day #5. 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 Patient follows with gastroenterology, last seen by Dr. Toledo on 10/11/20. Patient had an EGD in June 2020 which showed no varices and mild portal-hypertensive gastropathy. . HCV screening has been completed and is negative. AFP on 03/09/2019 = 2.6. INR =1.3. Elevation of AP and Tbili comparable to prior levels. - LFTs stable - Initially hospitalized w/ hepatic encephalopathy - at baseline mentation currently - Continue Lactulose, Rifaximin 550 mg p.o. twice daily, Titrate to 2-3 soft BMs/day - Pepcid 20mg po qHS - Last ammonia slightly elevated compared to prior but is in normal range for patient - checked due to tiredness, otherwise her mentation has been baseline x multiple weeks - Patient to have US in 1 year for HCC surveillance and EGD in 3 years for variceal screening. (3) Diabetes mellitus: Plan: Patient with type 2 diabetes, well controlled, long-term use of insulin. Last hemoglobin A1c=5.6 on 05/23/20. Patient follows with Endocrinology/Diabetes education. Last seen on 01/04/21. - Continue Lantus while here, Tresiba as outpt - ISS - Goal blood sugar 100 - 140 - Recommend annual A1c monitoring - Is on hydrocortisone BID for suspected adrenal insufficiency - endocrinology questions the validity of ACTH deficiency diagnosis and plan to repeat testing to confirm diagnosis as outpatient - Follow up with nurse educator outpatient as instructed (4) Seizure: Plan: Seizure disorder: Patient with history of seizure. She follows with neurology, last seen on 10/30/20 - follows for mixed tremor as well as dyskinesia and seizure history, parkinsonism. EEG completed in May 2018 revealed a generalized spike and slow wave abnormality consistent with an underlying generalized seizure disorder. Patient had an MRI brain completed in October 2017 which was unremarkable. Patient failed VNS placement in the past, device was explanted. Presently on topiramate, Trileptal and Keppra. 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 This has been discussed by the PCP. Target process complete and awaiting bed availability. Is stable for D/C pending arrangements Admission and Anticipated Discharge Date Admission Date: January 31, 2021 Jeffry Ibanez was seen on rounds this morning. Pt remains hospitalized initially for AMS which was found to be secondary to hepatic encephalopathy coupled by acute UTI. Her UTI is s/p abx treatment and her hepatic encephalopathy has resolved. However, pt has been awaiting placement for the past 4 weeks due pending target assessment which has since been completed. Currently, no beds. Case management is on board. Pt's UTI sx returned on 02/21, initiated treatment with Clindamycin d/t growth of staph. She has no new complaints this morning. Review of Systems Review of Systems: CONSTITUTIONAL: Denies weight loss/gain, fever and chills, fatigue, malaise, generalized weakness. HEENT: Denies changes in vision and hearing. RESPIRATORY: Denies SOB, cough, wheezing. CV: Denies palpitations, CP, lower extremity edema, orthopnea, PND. GI: Denies abdominal pain, nausea, vomiting and diarrhea. : Denies dysuria and urinary frequency, urgency, hesitancy. MUSCULOSKELETAL: +right knee pain--better with rest, not bothersome currently. SKIN: Denies rash and pruritus. NEUROLOGICAL: Denies headache, syncope, focal weakness, numbness, tingling. PSYCHIATRIC: Denies recent changes in mood. Denies anxiety and depression. Physical Exam Physical Exam: GENERAL: 55 yo WF. Well-developed, well-nourished. NAD. LUNGS: Clear to auscultation bilaterally. No accessory muscle use. No W/R/R. CARDIOVASCULAR: Regular rate and rhythm. No M/G/R. No JVD. ABDOMEN: Soft, non-tender and non-distended. No palpable masses. Bowel sounds normoactive x 4 quad. EXTREMITIES: No edema. Non-tender. Peripheral pulses +2/4. NEUROLOGIC: A&O x3. Head Tremor noted. PSYCHIATRIC: Cooperative. Appropriate mood and affect. SKIN: Warm, dry, intact. No rashes or lesions. Results & Data Results & Data ([facility]) Vital Signs (Past 12 Hours) Vital Signs Temp Pulse Resp BP Pulse Ox 02/28/21 06:17 36.4 C L 62 16 110/55 L 97 PG Care Time/CCT Total # of Minutes Spent Total Time Spent with Patient: Total time spent is greater than 50% in coordination of care (as documented) at patient's floor/unit and/or counseling patient: Coding Level of Care Code 09661 Subseq Hosp Care Lvl 1 Diagnoses Acute UTI N39.0 Cirrhosis K74.60 Diabetes mellitus E11.9 Seizure R56.9 Myoclonic seizure G40.409 Hyperammonemia E72.20 Parkinsonism G20
[2021-02-28] MEDS: ADVANCED PROBIOTIC 1250 MG CAPSULE PO SCH (13:05)
[2021-02-28] MEDS: CEROVITE ADV FORMULA TAB PO SCH (13:05)
[2021-02-28] MEDS: VITAMIN B COMPLEX TAB PO SCH (13:05)
[2021-02-28] MEDS: ZINC SULFATE 220 MG CAPSULE PO SCH (13:06)
[2021-02-28] MEDS: MELATONIN 3 MG TAB PO SCH (21:28)
[2021-02-28] MEDS: FAMOTIDINE 20 MG TAB PO SCH (21:29)
[2021-02-28] MEDS: ACETAMINOPHEN 500 MG TAB PO SCH (21:29)
[2021-02-28] MEDS: [UNRECOGNIZED DRUG - REMARK] SQ SCH (21:30)
[2021-03-01] MEDS: LEVOTHYROXINE SODIUM 50 MCG TABLET PO SCH (05:46)
--- NOTE | 2021-03-01 08:50 | Hospitalist Progress Note ---
Date of Service March 01, 2021 Assessment & Plan (1) Acute UTI: Plan: - Urine cx with Proteus resistance to FQs on 01/31, s/p treatment with Ceftriaxone - Urinary sx return 02/21, recultured showing coag neg staph not saprophytic, no history of staph UTI in past will use clindamycin which UTD suggest would cover - however if mentation changes or fever would consider switching to IV coverage. Treat for 7 days, currently on day #6. 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 Patient follows with gastroenterology, last seen by Dr. Toledo on 10/11/20. Patient had an EGD in June 2020 which showed no varices and mild portal-hypertensive gastropathy. . HCV screening has been completed and is negative. AFP on 03/09/2019 = 2.6. INR =1.3. Elevation of AP and Tbili comparable to prior levels. - LFTs stable - Initially hospitalized w/ hepatic encephalopathy - at baseline mentation currently - Continue Lactulose, Rifaximin 550 mg p.o. twice daily, Titrate to 2-3 soft BMs/day - Pepcid 20mg po qHS - Last ammonia slightly elevated compared to prior but is in normal range for patient - checked due to tiredness, otherwise her mentation has been baseline x multiple weeks - Patient to have US in 1 year for HCC surveillance and EGD in 3 years for variceal screening. (3) Diabetes mellitus: Plan: Patient with type 2 diabetes, well controlled, long-term use of insulin. Last hemoglobin A1c=5.6 on 05/23/20. Patient follows with Endocrinology/Diabetes education. Last seen on 01/04/21. - Continue Lantus while here, Tresiba as outpt - ISS - Goal blood sugar 100 - 140 - Recommend annual A1c monitoring - Is on hydrocortisone BID for suspected adrenal insufficiency - endocrinology questions the validity of ACTH deficiency diagnosis and plan to repeat testing to confirm diagnosis as outpatient - Follow up with diabetic educator outpatient as instructed (4) Seizure: Plan: Seizure disorder: Patient with history of seizure. She follows with neurology, last seen on 10/30/20 - follows for mixed tremor as well as dyskinesia and seizure history, parkinsonism. EEG completed in May 2018 revealed a generalized spike and slow wave abnormality consistent with an underlying generalized seizure disorder. Patient had an MRI brain completed in October 2017 which was unremarkable. Patient failed VNS placement in the past, device was explanted. Presently on topiramate, Trileptal and Keppra. 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 This has been discussed by the PCP. Target process complete and awaiting bed availability. Is stable for D/C pending arrangements. Most recent documentation notes that referral was faxed to [facility] and to follow up later today. Admission and Anticipated Discharge Date Admission Date: January 31, 2021 Jeffry Ibanez was seen on rounds this morning. Pt remains hospitalized initially for AMS which was found to be secondary to hepatic encephalopathy coupled by acute UTI. Her UTI is s/p abx treatment and her hepatic encephalopathy has resolved. However, pt has been awaiting placement for the past 4 weeks due pending target assessment which has since been completed. Case management is working on placement. Pt's UTI sx returned on 02/21, initiated treatment with Clindamycin d/t growth of staph. She has no new complaints this morning. Review of Systems Review of Systems: CONSTITUTIONAL: Denies weight loss/gain, fever and chills, fatigue, malaise, generalized weakness. HEENT: Denies changes in vision and hearing. RESPIRATORY: Denies SOB, cough, wheezing. CV: Denies palpitations, CP, lower extremity edema, orthopnea, PND. GI: Denies abdominal pain, nausea, vomiting and diarrhea. : Denies dysuria and urinary frequency, urgency, hesitancy. MUSCULOSKELETAL: +right knee pain--better with rest, not bothersome currently. SKIN: Denies rash and pruritus. NEUROLOGICAL: Denies headache, syncope, focal weakness, numbness, tingling. PSYCHIATRIC: Denies recent changes in mood. Denies anxiety and depression. Physical Exam Physical Exam: GENERAL: 55 yo WF. Well-developed, well-nourished. NAD. LUNGS: Clear to auscultation bilaterally. No accessory muscle use. No W/R/R. CARDIOVASCULAR: Regular rate and rhythm. No M/G/R. No JVD. ABDOMEN: Soft, non-tender and non-distended. No palpable masses. Bowel sounds normoactive x 4 quad. EXTREMITIES: No edema. Non-tender. Peripheral pulses +2/4. NEUROLOGIC: A&O x3. Head Tremor noted. PSYCHIATRIC: Cooperative. Appropriate mood and affect. SKIN: Warm, dry, intact. No rashes or lesions. Results & Data Results & Data ([facility]) Vital Signs (Past 12 Hours) Vital Signs Temp Pulse Resp BP Pulse Ox 03/01/21 07:17 36.7 C 74 22 126/57 L 96 02/28/21 23:10 36.7 C 80 20 144/81 H 98 PG Care Time/CCT Total # of Minutes Spent Total Time Spent with Patient: Total time spent is greater than 50% in coordination of care (as documented) at patient's floor/unit and/or counseling patient: Coding Level of Care Code 42961 Subseq Hosp Care Lvl 1 Diagnoses Acute UTI N39.0 Cirrhosis K74.60 Diabetes mellitus E11.9 Seizure R56.9 Myoclonic seizure G40.409 Hyperammonemia E72.20 Parkinsonism G20
[2021-03-01] MEDS: INSULIN ASPART 100 UNITS/ML 3 ML PEN SC SCH ×4 (09:43→20:55)
[2021-03-01] MEDS: INSULIN GLARGINE SOLOSTAR 100 UNITS/ML 3 ML PEN SC SCH (09:44)
[2021-03-01] MEDS: BENZTROPINE MESYLATE 1 MG TAB PO SCH ×3 (09:49→20:34)
[2021-03-01] MEDS: FEXOFENADINE 60 MG TAB PO SCH (09:49)
[2021-03-01] MEDS: CHOLECALCIFEROL 1,000 UNITS 25 MCG TAB PO SCH (09:50)
[2021-03-01] MEDS: TOPIRAMATE 100 MG TAB PO SCH ×2 (09:50→20:34)
[2021-03-01] MEDS: PRAVASTATIN SOD 20 MG TAB PO SCH (09:50)
[2021-03-01] MEDS: rOPINIRole HCL 0.25 MG TABLET PO SCH ×2 (09:50→20:34)
[2021-03-01] MEDS: OXcarbazepine 150 MG TABLET PO SCH ×2 (09:50→20:35)
[2021-03-01] MEDS: ESCITALOPRAM OXALATE 20 MG TAB PO SCH (09:50)
[2021-03-01] MEDS: HYDROCORTISONE 10 MG TAB PO SCH ×2 (09:50→14:48)
[2021-03-01] MEDS: rifAXIMin 550 MG TABLET PO SCH ×2 (09:50→20:35)
[2021-03-01] MEDS: MAGNESIUM OXIDE 400 MG TAB PO SCH ×2 (09:50→20:34)
[2021-03-01] MEDS: levETIRAcetam 500 MG TAB PO SCH ×2 (09:50→20:35)
[2021-03-01] MEDS: LACTULOSE SYRUP 20 GM/30 ML UDC PO SCH ×4 (09:51→20:52)
[2021-03-01] MEDS: CALCIUM CARBONATE 1250MG TAB PO SCH (09:51)
[2021-03-01] MEDS: LIDOCAINE 5% 1 PATCH TD SCH (09:51)
[2021-03-01] MEDS: ASCORBIC ACID 500 MG TAB PO SCH (09:51)
[2021-03-01] MEDS: ZINC SULFATE 220 MG CAPSULE PO SCH (13:08)
[2021-03-01] MEDS: ADVANCED PROBIOTIC 1250 MG CAPSULE PO SCH (13:08)
[2021-03-01] MEDS: CEROVITE ADV FORMULA TAB PO SCH (13:08)
[2021-03-01] MEDS: DICLOFENAC SOD 1% GEL 100 GM TUBE EXT SCH ×4 (18:19→20:36)
[2021-03-01] MEDS: ACETAMINOPHEN 500 MG TAB PO SCH (20:34)
[2021-03-01] MEDS: FAMOTIDINE 20 MG TAB PO SCH (20:36)
[2021-03-01] MEDS: [UNRECOGNIZED DRUG - REMARK] SQ SCH (20:37)
[2021-03-01] MEDS: MELATONIN 3 MG TAB PO SCH (20:39)
[2021-03-02] MEDS: LEVOTHYROXINE SODIUM 50 MCG TABLET PO SCH (04:53)
--- NOTE | 2021-03-02 08:46 | Hospitalist Progress Note ---
Date of Service March 02, 2021 Assessment & Plan (1) Acute UTI: Plan: - Urine cx with Proteus resistance to FQs on 01/31, s/p treatment with Ceftriaxone - Urinary sx return 02/21, recultured showing coag neg staph not saprophytic, no history of staph UTI in past will use clindamycin which UTD suggest would cover - however if mentation changes or fever would consider switching to IV coverage. Treat for 7 days which she will complete today (03/02). 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 Patient follows with gastroenterology, last seen by Dr. Toledo on 10/11/20. Patient had an EGD in June 2020 which showed no varices and mild portal-hypertensive gastropathy. . HCV screening has been completed and is negative. AFP on 03/09/2019 = 2.6. INR =1.3. Elevation of AP and Tbili comparable to prior levels. - LFTs stable - Initially hospitalized w/ hepatic encephalopathy - at baseline mentation currently - Continue Lactulose, Rifaximin 550 mg p.o. twice daily, Titrate to 2-3 soft BMs/day - Pepcid 20mg po qHS - Last ammonia slightly elevated compared to prior but is in normal range for patient - checked due to tiredness, otherwise her mentation has been baseline x multiple weeks - Patient to have US in 1 year for HCC surveillance and EGD in 3 years for variceal screening. (3) Diabetes mellitus: Plan: Patient with type 2 diabetes, well controlled, long-term use of insulin. Last hemoglobin A1c=5.6 on 05/23/20. Patient follows with Endocrinology/Diabetes education. Last seen on 01/04/21. - Continue Lantus while here, Tresiba as outpt - ISS - Goal blood sugar 100 - 140 - Recommend annual A1c monitoring - Is on hydrocortisone BID for suspected adrenal insufficiency - endocrinology questions the validity of ACTH deficiency diagnosis and plan to repeat testing to confirm diagnosis as outpatient - Follow up with commercial specialist outpatient as instructed (4) Seizure: Plan: Seizure disorder: Patient with history of seizure. She follows with neurology, last seen on 10/30/20 - follows for mixed tremor as well as dyskinesia and seizure history, parkinsonism. EEG completed in May 2018 revealed a generalized spike and slow wave abnormality consistent with an underlying generalized seizure disorder. Patient had an MRI brain completed in October 2017 which was unremarkable. Patient failed VNS placement in the past, device was explanted. Presently on topiramate, Trileptal and Keppra. 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 This has been discussed by the PCP. Target process complete and awaiting bed availability. Is stable for D/C pending arrangements. Most recent documentation notes that referral was faxed to [facility] to follow up later today. Admission and Anticipated Discharge Date Admission Date: January 31, 2021 Jeffry Ibanez was seen on rounds this morning. Pt remains hospitalized initially for AMS which was found to be secondary to hepatic encephalopathy coupled by acute UTI. Her UTI is s/p abx treatment and her hepatic encephalopathy has resolved. However, pt has been awaiting placement for the past 4 weeks due pending target assessment which has since been completed. Case management is working on placement. Pt's UTI sx returned on 02/21, initiated treatment with Clindamycin d/t growth of staph. Today, she is c/o her scheduled Lactulose and would like the last dose to be given at 1700 versus 2100. She is also admitting to decreased appetite. No other complaints at this time. Review of Systems Review of Systems: CONSTITUTIONAL: Denies weight loss/gain, fever and chills, fatigue, malaise, generalized weakness. HEENT: Denies changes in vision and hearing. RESPIRATORY: Denies SOB, cough, wheezing. CV: Denies palpitations, CP, lower extremity edema, orthopnea, PND. GI: Denies abdominal pain, nausea, vomiting and diarrhea. : Denies dysuria and urinary frequency, urgency, hesitancy. MUSCULOSKELETAL: +right knee pain--better with rest, not bothersome currently. SKIN: Denies rash and pruritus. NEUROLOGICAL: Denies headache, syncope, focal weakness, numbness, tingling. PSYCHIATRIC: Denies recent changes in mood. Denies anxiety and depression. Physical Exam Physical Exam: GENERAL: 55 yo WF. Well-developed, well-nourished. NAD. LUNGS: Clear to auscultation bilaterally. No accessory muscle use. No W/R/R. CARDIOVASCULAR: Regular rate and rhythm. No M/G/R. No JVD. ABDOMEN: Soft, non-tender and non-distended. No palpable masses. Bowel sounds normoactive x 4 quad. EXTREMITIES: No edema. Non-tender. Peripheral pulses +2/4. NEUROLOGIC: A&O x3. Head Tremor noted. PSYCHIATRIC: Cooperative. Appropriate mood and affect. SKIN: Warm, dry, intact. No rashes or lesions. Results & Data Results & Data ([facility]) Vital Signs (Past 12 Hours) Vital Signs Temp Pulse Resp BP Pulse Ox 03/02/21 07:30 36.7 C 62 16 115/64 97 03/01/21 23:02 36.4 C L 72 16 135/70 95 PG Care Time/CCT Total # of Minutes Spent Total Time Spent with Patient: Total time spent is greater than 50% in coordination of care (as documented) at patient's floor/unit and/or counseling patient: Coding Level of Care Code 07786 Subseq Hosp Care Lvl 1 Diagnoses Acute UTI N39.0 Cirrhosis K74.60 Diabetes mellitus E11.9 Seizure R56.9 Myoclonic seizure G40.409 Hyperammonemia E72.20 Parkinsonism G20
[2021-03-02] MEDS: ASCORBIC ACID 500 MG TAB PO SCH (09:58)
[2021-03-02] MEDS: CALCIUM CARBONATE 1250MG TAB PO SCH (09:58)
[2021-03-02] MEDS: CHOLECALCIFEROL 1,000 UNITS 25 MCG TAB PO SCH (09:58)
[2021-03-02] MEDS: LIDOCAINE 5% 1 PATCH TD SCH (09:59)
[2021-03-02] MEDS: CEROVITE ADV FORMULA TAB PO SCH (12:32)
[2021-03-02] MEDS: ZINC SULFATE 220 MG CAPSULE PO SCH (12:32)
[2021-03-02] MEDS: ADVANCED PROBIOTIC 1250 MG CAPSULE PO SCH (12:32)
[2021-03-02] MEDS: INSULIN ASPART 100 UNITS/ML 3 ML PEN SC SCH ×3 (22:20→22:32)
[2021-03-02] MEDS: INSULIN GLARGINE SOLOSTAR 100 UNITS/ML 3 ML PEN SC SCH (22:20)
[2021-03-02] MEDS: DICLOFENAC SOD 1% GEL 100 GM TUBE EXT SCH ×4 (22:21→22:38)
[2021-03-02] MEDS: ACETAMINOPHEN 500 MG TAB PO SCH (22:21)
[2021-03-02] MEDS: HYDROCORTISONE 10 MG TAB PO SCH ×3 (22:22→22:36)
[2021-03-02] MEDS: [UNRECOGNIZED DRUG - REMARK] SQ SCH ×2 (22:23→22:37)
[2021-03-02] MEDS: MELATONIN 3 MG TAB PO SCH ×2 (22:25→22:37)
[2021-03-02] MEDS: ESCITALOPRAM OXALATE 20 MG TAB PO SCH (22:35)
[2021-03-02] MEDS: BENZTROPINE MESYLATE 1 MG TAB PO SCH ×3 (22:35→22:39)
[2021-03-02] MEDS: FEXOFENADINE 60 MG TAB PO SCH (22:35)
[2021-03-02] MEDS: OXcarbazepine 150 MG TABLET PO SCH ×2 (22:36→22:37)
[2021-03-02] MEDS: levETIRAcetam 500 MG TAB PO SCH ×2 (22:36→22:38)
[2021-03-02] MEDS: TOPIRAMATE 100 MG TAB PO SCH ×2 (22:36→22:38)
[2021-03-02] MEDS: PRAVASTATIN SOD 20 MG TAB PO SCH (22:36)
[2021-03-02] MEDS: rOPINIRole HCL 0.25 MG TABLET PO SCH ×2 (22:36→22:38)
[2021-03-02] MEDS: rifAXIMin 550 MG TABLET PO SCH ×2 (22:36→22:38)
[2021-03-02] MEDS: MAGNESIUM OXIDE 400 MG TAB PO SCH ×2 (22:36→22:38)
[2021-03-02] MEDS: LACTULOSE SYRUP 20 GM/30 ML UDC PO SCH ×3 (22:36→22:39)
[2021-03-02] MEDS: FAMOTIDINE 20 MG TAB PO SCH (22:37)
[2021-03-03] MEDS: LEVOTHYROXINE SODIUM 50 MCG TABLET PO SCH (05:29)
--- NOTE | 2021-03-03 08:22 | Hospitalist Progress Note ---
Date of Service March 03, 2021 Assessment & Plan (1) Cirrhosis: Plan: Cirrhosis secondary to STEVE w/ portal hypertension. Patient follows with gastroenterology, last seen by Dr. Toledo on 10/11/20. Patient had an EGD in June 2020 which showed no varices and mild portal-hypertensive gastropathy.HCV screening has been completed and is negative. AFP on 03/09/2019 = 2.6. INR =1.3. Elevation of AP and Tbili comparable to prior levels. - LFTs stable - Initially hospitalized w/ hepatic encephalopathy - at baseline mentation currently - Continue Lactulose, Rifaximin 550 mg p.o. twice daily, Titrate to 2-3 soft BMs/day - Pepcid 20mg po qHS - Last ammonia slightly elevated compared to prior but is in normal range for patient - checked due to tiredness, otherwise her mentation has been baseline x multiple weeks - Patient to have US in 1 year for HCC surveillance and EGD in 3 years for variceal screening. - Seems more agitated today, check labs and ammonia level (2) Acute UTI: Plan: - Urine cx with Proteus resistance to FQs on 01/31, s/p treatment with Ceftriaxone - Urinary sx return 02/21, recultured showing coag neg staph not saprophytic, no history of staph UTI completed course of clindamycin - vaginal itching/burning and was treated with clotrimazole x 7 days and finished treatment 02/21 (3) Diabetes mellitus: Plan: Patient with type 2 diabetes, well controlled, long-term use of insulin. Last hemoglobin A1c=5.6 on 05/23/20. Patient follows with Endocrinology/Diabetes education. Last seen on 01/04/21. - Continue Lantus while here, Tresiba as outpt - ISS - Goal blood sugar 100 - 140 - Recommend annual A1c monitoring - Is on hydrocortisone BID for suspected adrenal insufficiency - endocrinology questions the validity of ACTH deficiency diagnosis and plan to repeat testing to confirm diagnosis as outpatient - Follow up with para educator outpatient as instructed (4) Seizure: Plan: Seizure disorder: Patient with history of seizure. She follows with neurology, last seen on 10/30/20 - follows for mixed tremor as well as dyskinesia and seizure history, parkinsonism. EEG completed in May 2018 revealed a generalized spike and slow wave abnormality consistent with an underlying generalized seizure disorder. Patient had an MRI brain completed in October 2017 which was unremarkable. Patient failed VNS placement in the past, device was explanted. Presently on topiramate, Trileptal and Keppra. 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 This has been discussed by the PCP. Target process complete and awaiting bed availability. Is stable for D/C pending arrangements. Most recent documentation notes that referral was faxed to [facility], and messages were also left for [facility] and [facility] in [place]. Admission and Anticipated Discharge Date Admission Date: January 31, 2021 Jefrfy Ibanez was seen on rounds this morning. Pt remains hospitalized initially for AMS which was found to be secondary to hepatic encephalopathy coupled by acute UTI. Her UTI is s/p abx treatment and her hepatic encephalopathy has resolved. However, pt has been awaiting placement for the past 4 weeks due pending target assessment which has since been completed. Pt's UTI sx returned on 02/21, initiated treatment with Clindamycin d/t growth of staph which has since been completed. Pt more agitated today, asking if she can "go home for a little bit." She claims her doesn't want her to go to a intermediate. Review of Systems Review of Systems: CONSTITUTIONAL: Denies weight loss/gain, fever and chills, fatigue, malaise, generalized weakness. HEENT: Denies changes in vision and hearing. RESPIRATORY: Denies SOB, cough, wheezing. CV: Denies palpitations, CP, lower extremity edema, orthopnea, PND. GI: Denies abdominal pain, nausea, vomiting and diarrhea. : Denies dysuria and urinary frequency, urgency, hesitancy. MUSCULOSKELETAL: +right knee pain--better with rest, not bothersome currently. SKIN: Denies rash and pruritus. NEUROLOGICAL: Denies headache, syncope, focal weakness, numbness, tingling. PSYCHIATRIC: More agitated today. Denies anxiety and depression. Physical Exam Physical Exam: GENERAL: 55 yo WF. Well-developed, well-nourished. NAD. LUNGS: Clear to auscultation bilaterally. No accessory muscle use. No W/R/R. CARDIOVASCULAR: Regular rate and rhythm. No M/G/R. No JVD. ABDOMEN: Soft, non-tender and non-distended. No palpable masses. Bowel sounds normoactive x 4 quad. EXTREMITIES: No edema. Non-tender. Peripheral pulses +2/4. NEUROLOGIC: A&O x3. Head Tremor noted. PSYCHIATRIC: Cooperative. Appropriate mood and affect. SKIN: Warm, dry, intact. No rashes or lesions. Results & Data Results & Data ([facility]) Vital Signs (Past 12 Hours) Vital Signs Temp Pulse Resp BP Pulse Ox 03/03/21 07:07 36.6 C 63 18 123/58 L 96 03/02/21 22:46 36.6 C 60 18 119/73 95 Laboratory Results No labs since 02/25 PG Care Time/CCT Total # of Minutes Spent Total Time Spent with Patient: Total time spent is greater than 50% in coordination of care (as documented) at patient's floor/unit and/or counseling patient: Coding Level of Care Code 66284 Subseq Hosp Care Lvl 2 Diagnoses Acute UTI N39.0 Cirrhosis K74.60 Diabetes mellitus E11.9 Seizure R56.9 Myoclonic seizure G40.409 Hyperammonemia E72.20 Parkinsonism G20
[2021-03-03] MEDS: CALCIUM CARBONATE 1250MG TAB PO SCH (08:47)
[2021-03-03] MEDS: LACTULOSE SYRUP 20 GM/30 ML UDC PO SCH ×3 (08:47→21:21)
[2021-03-03] MEDS: HYDROCORTISONE 10 MG TAB PO SCH ×2 (08:48→13:34)
[2021-03-03] MEDS: CHOLECALCIFEROL 1,000 UNITS 25 MCG TAB PO SCH (08:48)
[2021-03-03] MEDS: PRAVASTATIN SOD 20 MG TAB PO SCH (08:48)
[2021-03-03] MEDS: ASCORBIC ACID 500 MG TAB PO SCH (08:48)
[2021-03-03] MEDS: OXcarbazepine 150 MG TABLET PO SCH ×2 (08:48→21:19)
[2021-03-03] MEDS: FEXOFENADINE 60 MG TAB PO SCH (08:50)
[2021-03-03] MEDS: DICLOFENAC SOD 1% GEL 100 GM TUBE EXT SCH ×4 (08:50→21:20)
[2021-03-03] MEDS: ESCITALOPRAM OXALATE 20 MG TAB PO SCH (08:50)
[2021-03-03] MEDS: LIDOCAINE 5% 1 PATCH TD SCH (08:51)
[2021-03-03] MEDS: BENZTROPINE MESYLATE 1 MG TAB PO SCH ×3 (08:53→21:21)
[2021-03-03] MEDS: levETIRAcetam 500 MG TAB PO SCH ×2 (08:53→21:18)
[2021-03-03] MEDS: rifAXIMin 550 MG TABLET PO SCH ×2 (08:54→21:18)
[2021-03-03] MEDS: rOPINIRole HCL 0.25 MG TABLET PO SCH ×2 (08:54→21:17)
[2021-03-03] MEDS: TOPIRAMATE 100 MG TAB PO SCH ×2 (08:55→21:19)
[2021-03-03] MEDS: MAGNESIUM OXIDE 400 MG TAB PO SCH ×2 (08:56→21:18)
[2021-03-03] MEDS: INSULIN GLARGINE SOLOSTAR 100 UNITS/ML 3 ML PEN SC SCH (08:56)
[2021-03-03] MEDS: INSULIN ASPART 100 UNITS/ML 3 ML PEN SC SCH ×4 (08:57→21:22)
[2021-03-03] MEDS: ZINC SULFATE 220 MG CAPSULE PO SCH (12:39)
[2021-03-03] MEDS: ADVANCED PROBIOTIC 1250 MG CAPSULE PO SCH (12:39)
[2021-03-03] MEDS: CEROVITE ADV FORMULA TAB PO SCH (12:39)
[2021-03-03 12:42] LABS: Hematocrit (blood only) 32.6 % (37-47); Hemoglobin 10.9 g/dL (12.0-16.0); Mean Corpuscular Hemoglobin 35.9 pg (25-34); Mean Corpuscular Hgb Conc 33.4 g/dL (32-36); Mean Corpuscular Volume 107.2 fL (80-100); Mean Platelet Volume 9.6 fL (7.4-10.4); Platelet Count 80 K/uL (130-400); RDW Coefficient of Variation 12.9 % (11.5-14.5); RDW Standard Deviation 49.8 fL (36.4-46.3); Red Blood Count 3.04 M/uL (4.2-5.4); White Blood Count 3.75 K/uL (4.8-10.8)
[2021-03-03 13:04] LABS: Albumin Level 2.5 gm/dl (3.4-5.0); BUN Creatinine Ratio 32.5 (10-20); Calcium 8.5 mg/dl (8.5-10.1); Creatinine Clr Calc Pharmacy 102.1 ml/min; Est GFR (African American) 121.7 ml/min; Potassium 3.8 mmol/L (3.5-5.1)
[2021-03-03 13:07] LABS: Albumin Globulin Ratio 0.8 (0.9-2); Bilirubin,Total 1.1 mg/dl (0.2-1); Globulin 3.2 gm/dl (2.5-4.0); Total Protein 5.7 gm/dl (6.4-8.2)
[2021-03-03 13:10] LABS: Basophils # (auto) 0.02 K/uL (0-0.2); Basophils % (auto) 0.5 %; Eosinophils # (auto) 0.09 K/uL (0-0.5); Eosinophils % (auto) 2.4 %; Lymphocytes % (auto) 21.3 %; Monocytes # (auto) 0.45 K/uL (0.11-0.59); Neutrophils # (auto) 2.39 K/uL (1.4-6.5); Neutrophils % (auto) 63.8 %; Ovalocytes 1+
[2021-03-03] MEDS: [UNRECOGNIZED DRUG - REMARK] PO PRN (17:35)
[2021-03-03] MEDS: MELATONIN 3 MG TAB PO SCH (21:18)
[2021-03-03] MEDS: ACETAMINOPHEN 500 MG TAB PO SCH (21:19)
[2021-03-03] MEDS: [UNRECOGNIZED DRUG - REMARK] SQ SCH (21:20)
[2021-03-03] MEDS: FAMOTIDINE 20 MG TAB PO SCH (21:20)
[2021-03-04] MEDS: LEVOTHYROXINE SODIUM 50 MCG TABLET PO SCH (05:41)
[2021-03-04] MEDS: rOPINIRole HCL 0.25 MG TABLET PO SCH ×2 (08:36→21:15)
[2021-03-04] MEDS: levETIRAcetam 500 MG TAB PO SCH ×2 (08:36→21:14)
[2021-03-04] MEDS: CHOLECALCIFEROL 1,000 UNITS 25 MCG TAB PO SCH (08:37)
[2021-03-04] MEDS: BENZTROPINE MESYLATE 1 MG TAB PO SCH ×3 (08:37→21:14)
[2021-03-04] MEDS: TOPIRAMATE 100 MG TAB PO SCH ×2 (08:37→21:15)
[2021-03-04] MEDS: PRAVASTATIN SOD 20 MG TAB PO SCH (08:38)
[2021-03-04] MEDS: ASCORBIC ACID 500 MG TAB PO SCH (08:38)
[2021-03-04] MEDS: HYDROCORTISONE 10 MG TAB PO SCH ×2 (08:38→13:10)
[2021-03-04] MEDS: rifAXIMin 550 MG TABLET PO SCH ×2 (08:39→21:16)
[2021-03-04] MEDS: CALCIUM CARBONATE 1250MG TAB PO SCH (08:40)
[2021-03-04] MEDS: LACTULOSE SYRUP 20 GM/30 ML UDC PO SCH ×3 (08:40→21:18)
[2021-03-04] MEDS: ESCITALOPRAM OXALATE 20 MG TAB PO SCH (08:40)
[2021-03-04] MEDS: OXcarbazepine 150 MG TABLET PO SCH ×2 (08:41→21:17)
[2021-03-04] MEDS: MAGNESIUM OXIDE 400 MG TAB PO SCH ×2 (08:41→21:16)
[2021-03-04] MEDS: FEXOFENADINE 60 MG TAB PO SCH (08:41)
[2021-03-04] MEDS: LIDOCAINE 5% 1 PATCH TD SCH (08:42)
[2021-03-04] MEDS: DICLOFENAC SOD 1% GEL 100 GM TUBE EXT SCH ×4 (08:42→21:19)
[2021-03-04] MEDS: INSULIN GLARGINE SOLOSTAR 100 UNITS/ML 3 ML PEN SC SCH (08:49)
[2021-03-04] MEDS: INSULIN ASPART 100 UNITS/ML 3 ML PEN SC SCH ×4 (08:50→21:20)
[2021-03-04] MEDS: ADVANCED PROBIOTIC 1250 MG CAPSULE PO SCH (11:34)
[2021-03-04] MEDS: ZINC SULFATE 220 MG CAPSULE PO SCH (11:34)
[2021-03-04] MEDS: CEROVITE ADV FORMULA TAB PO SCH (11:35)
[2021-03-04] MEDS: MELATONIN 3 MG TAB PO SCH (21:12)
[2021-03-04] MEDS: ACETAMINOPHEN 500 MG TAB PO SCH (21:15)
[2021-03-04] MEDS: FAMOTIDINE 20 MG TAB PO SCH (21:16)
[2021-03-04] MEDS: [UNRECOGNIZED DRUG - REMARK] SQ SCH (21:23)
[2021-03-05] MEDS: LEVOTHYROXINE SODIUM 50 MCG TABLET PO SCH (04:49)
[2021-03-05] MEDS: [UNRECOGNIZED DRUG - REMARK] PO PRN (08:17)
[2021-03-05] MEDS: INSULIN ASPART 100 UNITS/ML 3 ML PEN SC SCH ×4 (09:22→20:37)
[2021-03-05] MEDS: MAGNESIUM OXIDE 400 MG TAB PO SCH ×2 (09:23→20:39)
[2021-03-05] MEDS: rifAXIMin 550 MG TABLET PO SCH ×2 (09:23→20:39)
[2021-03-05] MEDS: levETIRAcetam 500 MG TAB PO SCH ×2 (09:24→20:40)
[2021-03-05] MEDS: ASCORBIC ACID 500 MG TAB PO SCH (09:24)
[2021-03-05] MEDS: HYDROCORTISONE 10 MG TAB PO SCH ×2 (09:24→15:34)
[2021-03-05] MEDS: BENZTROPINE MESYLATE 1 MG TAB PO SCH ×3 (09:24→20:41)
[2021-03-05] MEDS: OXcarbazepine 150 MG TABLET PO SCH ×2 (09:25→20:42)
[2021-03-05] MEDS: PRAVASTATIN SOD 20 MG TAB PO SCH (09:26)
[2021-03-05] MEDS: FEXOFENADINE 60 MG TAB PO SCH (09:26)
[2021-03-05] MEDS: rOPINIRole HCL 0.25 MG TABLET PO SCH ×2 (09:27→20:41)
[2021-03-05] MEDS: CALCIUM CARBONATE 1250MG TAB PO SCH (09:27)
[2021-03-05] MEDS: TOPIRAMATE 100 MG TAB PO SCH ×2 (09:27→20:41)
[2021-03-05] MEDS: CHOLECALCIFEROL 1,000 UNITS 25 MCG TAB PO SCH (09:27)
[2021-03-05] MEDS: ESCITALOPRAM OXALATE 20 MG TAB PO SCH (09:27)
[2021-03-05] MEDS: DICLOFENAC SOD 1% GEL 100 GM TUBE EXT SCH ×5 (09:28→20:45)
[2021-03-05] MEDS: LIDOCAINE 5% 1 PATCH TD SCH (09:29)
[2021-03-05] MEDS: INSULIN GLARGINE SOLOSTAR 100 UNITS/ML 3 ML PEN SC SCH (09:29)
[2021-03-05] MEDS: LACTULOSE SYRUP 20 GM/30 ML UDC PO SCH ×3 (09:29→20:43)
--- NOTE | 2021-03-05 12:16 | Hospitalist Progress Note ---
Date of Service March 05, 2021 Assessment & Plan (1) Cirrhosis: Plan: Cirrhosis secondary to STEVE w/ portal hypertension. Patient follows with gastroenterology, last seen by Dr. Toledo on 10/11/20. Patient had an EGD in June 2020 which showed no varices and mild portal-hypertensive gastropathy.HCV screening has been completed and is negative. AFP on 03/09/2019 = 2.6. INR =1.3. Elevation of AP and Tbili comparable to prior levels. - LFTs stable - Initially hospitalized w/ hepatic encephalopathy - at baseline mentation currently - Continue Lactulose, Rifaximin 550 mg p.o. twice daily, Titrate to 2-3 soft BMs/day - Pepcid 20mg po qHS - Last ammonia slightly elevated compared to prior but is in normal range for patient - checked due to tiredness, otherwise her mentation has been baseline x multiple weeks - Patient to have US in 1 year for HCC surveillance and EGD in 3 years for variceal screening. (2) Acute UTI: Plan: - Urine cx with Proteus resistance to FQs on 01/31, s/p treatment with Ceftriaxone - Urinary sx return 02/21, recultured showing coag neg staph not saprophytic, no history of staph UTI completed course of clindamycin - Vaginal itching/burning and was treated with clotrimazole x 7 days and finished treatment 02/21 (3) Diabetes mellitus: Plan: Patient with type 2 diabetes, well controlled, long-term use of insulin. Last hemoglobin A1c=5.6 on 05/23/20. Patient follows with Endocrinology/Diabetes education. Last seen on 01/04/21. - Continue Lantus while here, Mahiba as outpt - ISS - Goal blood sugar 100 - 140 - Recommend annual A1c monitoring - Is on hydrocortisone BID for suspected adrenal insufficiency - endocrinology questions the validity of ACTH deficiency diagnosis and plan to repeat testing to confirm diagnosis as outpatient - Follow up with development educator outpatient as instructed (4) Seizure: Plan: Seizure disorder: Patient with history of seizure. She follows with neurology, last seen on 10/30/20 - follows for mixed tremor as well as dyskinesia and seizure history, parkinsonism. EEG completed in May 2018 revealed a generalized spike and slow wave abnormality consistent with an underlying generalized seizure disorder. Patient had an MRI brain completed in October 2017 which was unremarkable. Patient failed VNS placement in the past, device was explanted. Presently on topiramate, Trileptal and Keppra. 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 This has been discussed by the PCP. Target process complete and awaiting bed availability. Is stable for D/C pending arrangements. Multiple referrals placed and awaiting determination Admission and Anticipated Discharge Date Admission Date: January 31, 2021 Subjective Reports feeling tired today as she did not sleep well overnight. However verbalizes no other complaints. No urinary symptoms. R knee pain is controlled. Tolerating a diet without issue and continues to move her bowels adequately. She mentioned she would like to go to [facility] as her previous roommate just went there. Explained how that is more acute rehab and needing skilled nursing management. Review of Systems Review of Systems: All systems reviewed & are unremarkable except as noted in Subjective Physical Exam Physical Exam: PHYSICAL EXAM General Appearance: Frail; in NAD who is A&O x 3 HEENT: Head is normocephalic/atraumatic; Hearing grossly intact; anicteric sclera Neck: Supple; Trachea midline; Neg JVD Heart: RRR with no M/G/R Lungs: CTA in all lung dyer bilaterally; Respirations unlabored; Neg accessory muscle use Abdomen: Soft, non-tender, non-distended; Positive BS x 4 quadrants Neurological: Speech clear; +tremor; + no choreiform movements of head during this visit Psychiatric: Appropriate mood/affect Skin: Normal Color; Warm/Dry Results & Data Results & [facility] ([facility]) Vital Signs (Past 12 Hours) Vital Signs Temp Pulse Resp BP Pulse Ox 03/05/21 06:54 36.7 C 54 L 18 125/73 98 PG Care Time/CCT Total # of Minutes Spent Total Time Spent with Patient: Total time spent is greater than 50% in coordination of care (as documented) at patient's floor/unit and/or counseling patient: Coding Level of Care Code 73748 Subseq Hosp Care Lvl 2 Diagnoses Cirrhosis K74.60 Acute UTI N39.0 Diabetes mellitus E11.9 Seizure R56.9 Myoclonic seizure G40.409 Hyperammonemia E72.20 Parkinsonism G20
[2021-03-05] MEDS: PROMETHAZINE HCL 25 MG TAB PO PRN (20:31)
[2021-03-05] MEDS: FAMOTIDINE 20 MG TAB PO SCH (20:40)
[2021-03-05] MEDS: [UNRECOGNIZED DRUG - REMARK] SQ SCH (20:44)
[2021-03-05] MEDS: MELATONIN 3 MG TAB PO SCH (20:49)
[2021-03-06] MEDS: LEVOTHYROXINE SODIUM 50 MCG TABLET PO SCH (05:47)
[2021-03-06] MEDS: FEXOFENADINE 60 MG TAB PO SCH (08:44)
[2021-03-06] MEDS: ESCITALOPRAM OXALATE 20 MG TAB PO SCH (08:44)
[2021-03-06] MEDS: BENZTROPINE MESYLATE 1 MG TAB PO SCH ×3 (08:44→20:57)
[2021-03-06] MEDS: HYDROCORTISONE 10 MG TAB PO SCH ×2 (08:45→16:09)
[2021-03-06] MEDS: LACTULOSE SYRUP 20 GM/30 ML UDC PO SCH ×3 (08:46→17:50)
[2021-03-06] MEDS: levETIRAcetam 500 MG TAB PO SCH ×2 (08:47→20:56)
[2021-03-06] MEDS: MAGNESIUM OXIDE 400 MG TAB PO SCH ×2 (08:47→20:56)
[2021-03-06] MEDS: rifAXIMin 550 MG TABLET PO SCH ×2 (08:49→20:56)
[2021-03-06] MEDS: PRAVASTATIN SOD 20 MG TAB PO SCH (08:49)
[2021-03-06] MEDS: OXcarbazepine 150 MG TABLET PO SCH ×2 (08:49→20:56)
[2021-03-06] MEDS: rOPINIRole HCL 0.25 MG TABLET PO SCH ×2 (08:51→20:56)
[2021-03-06] MEDS: TOPIRAMATE 100 MG TAB PO SCH ×2 (08:51→20:56)
[2021-03-06] MEDS: LIDOCAINE 5% 1 PATCH TD SCH (08:52)
[2021-03-06] MEDS: DICLOFENAC SOD 1% GEL 100 GM TUBE EXT SCH ×4 (08:52→20:57)
[2021-03-06] MEDS: INSULIN GLARGINE SOLOSTAR 100 UNITS/ML 3 ML PEN SC SCH (08:56)
[2021-03-06] MEDS: INSULIN ASPART 100 UNITS/ML 3 ML PEN SC SCH ×4 (08:59→21:12)
--- NOTE | 2021-03-06 16:07 | Hospitalist Progress Note ---
Date of Service March 06, 2021 Assessment & Plan (1) Cirrhosis: Plan: Cirrhosis secondary to STEVE w/ portal hypertension. Patient follows with gastroenterology, last seen by Dr. Toledo on 10/11/20. Patient had an EGD in June 2020 which showed no varices and mild portal-hypertensive gastropathy.HCV screening has been completed and is negative. AFP on 03/09/2019 = 2.6. INR =1.3. Elevation of AP and Tbili comparable to prior levels. - LFTs stable - Initially hospitalized w/ hepatic encephalopathy - at baseline mentation currently - Continue Lactulose, Rifaximin 550 mg p.o. twice daily, Titrate to 2-3 soft BMs/day - Pepcid 20mg po qHS - Last ammonia slightly elevated compared to prior but is in normal range for patient - checked due to tiredness, otherwise her mentation has been baseline x multiple weeks - Patient to have US in 1 year for HCC surveillance and EGD in 3 years for variceal screening. (2) Acute UTI: Plan: - Urine cx with Proteus resistance to FQs on 01/31, s/p treatment with Ceftriaxone - Urinary sx return 02/21, recultured showing coag neg staph not saprophytic, no history of staph UTI completed course of clindamycin - Vaginal itching/burning and was treated with clotrimazole x 7 days and finished treatment 02/21 (3) Diabetes mellitus: Plan: Patient with type 2 diabetes, well controlled, long-term use of insulin. Last hemoglobin A1c=5.6 on 05/23/20. Patient follows with Endocrinology/Diabetes education. Last seen on 01/04/21. - Continue Lantus while here, Mahiba as outpt - ISS - Goal blood sugar 100 - 140 - Recommend annual A1c monitoring - Is on hydrocortisone BID for suspected adrenal insufficiency - endocrinology questions the validity of ACTH deficiency diagnosis and plan to repeat testing to confirm diagnosis as outpatient - Follow up with public health educator outpatient as instructed (4) Seizure: Plan: Seizure disorder: Patient with history of seizure. She follows with neurology, last seen on 10/30/20 - follows for mixed tremor as well as dyskinesia and seizure history, parkinsonism. EEG completed in May 2018 revealed a generalized spike and slow wave abnormality consistent with an underlying generalized seizure disorder. Patient had an MRI brain completed in October 2017 which was unremarkable. Patient failed VNS placement in the past, device was explanted. Presently on topiramate, Trileptal and Keppra. 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 This has been discussed by the PCP. Target process complete and awaiting bed availability. Is stable for D/C pending arrangements. Multiple referrals placed and awaiting determination Admission and Anticipated Discharge Date Admission Date: January 31, 2021 Subjective Reports feeling well today. Slept better overnight. Tolerating a diet without issue. Asked to have her lactulose timing adjusted and did that. Also asking for flu vaccine and will verify if this was already completed as outpatient as I think she brought this up before and was vaccinated so will verify. Still pending placement Review of Systems Review of Systems: All systems reviewed & are unremarkable except as noted in Subjective Physical Exam Physical Exam: PHYSICAL EXAM General Appearance: Frail; in NAD who is A&O x 3 HEENT: Head is normocephalic/atraumatic; Hearing grossly intact; anicteric sclera Neck: Supple; Trachea midline; Neg JVD Heart: RRR with no M/G/R Lungs: CTA in all lung dyer bilaterally; Respirations unlabored; Neg accessory muscle use Abdomen: Soft, non-tender, non-distended; Positive BS x 4 quadrants Neurological: Speech clear; +tremor; + mild choreiform movements of head during this visit Psychiatric: Appropriate mood/affect Skin: Normal Color; Warm/Dry Results & Data Results & Data ([facility]) Vital Signs (Past 12 Hours) Vital Signs Temp Pulse Pulse Resp BP BP Pulse Ox 03/06/21 15:23 36.6 C 64 18 122/69 97 03/06/21 07:45 36.7 C 62 18 136/83 99 PG Care Time/CCT Total # of Minutes Spent Total Time Spent with Patient: Total time spent is greater than 50% in coordination of care (as documented) at patient's floor/unit and/or counseling patient: Coding Level of Care Code 46806 Subseq Hosp Care Lvl 2 Diagnoses Cirrhosis K74.60 Acute UTI N39.0 Diabetes mellitus E11.9 Seizure R56.9 Myoclonic seizure G40.409 Hyperammonemia E72.20 Parkinsonism G20
[2021-03-06] MEDS: FAMOTIDINE 20 MG TAB PO SCH (20:56)
[2021-03-06] MEDS: [UNRECOGNIZED DRUG - REMARK] SQ SCH (21:00)
[2021-03-06] MEDS: MELATONIN 3 MG TAB PO SCH (21:05)
[2021-03-07] MEDS: LEVOTHYROXINE SODIUM 50 MCG TABLET PO SCH (04:52)
[2021-03-07] MEDS: DICLOFENAC SOD 1% GEL 100 GM TUBE EXT SCH ×4 (09:07→21:44)
[2021-03-07] MEDS: BENZTROPINE MESYLATE 1 MG TAB PO SCH ×3 (09:07→21:32)
[2021-03-07] MEDS: HYDROCORTISONE 10 MG TAB PO SCH ×2 (09:08→17:05)
[2021-03-07] MEDS: TOPIRAMATE 100 MG TAB PO SCH ×2 (09:09→22:01)
[2021-03-07] MEDS: rOPINIRole HCL 0.25 MG TABLET PO SCH ×2 (09:09→21:46)
[2021-03-07] MEDS: rifAXIMin 550 MG TABLET PO SCH ×2 (09:10→21:32)
[2021-03-07] MEDS: FEXOFENADINE 60 MG TAB PO SCH (09:10)
[2021-03-07] MEDS: PRAVASTATIN SOD 20 MG TAB PO SCH (09:11)
[2021-03-07] MEDS: OXcarbazepine 150 MG TABLET PO SCH ×2 (09:11→21:55)
[2021-03-07] MEDS: LACTULOSE SYRUP 20 GM/30 ML UDC PO SCH ×3 (09:12→18:27)
[2021-03-07] MEDS: levETIRAcetam 500 MG TAB PO SCH ×2 (09:13→21:32)
[2021-03-07] MEDS: MAGNESIUM OXIDE 400 MG TAB PO SCH ×2 (09:14→21:42)
[2021-03-07] MEDS: ESCITALOPRAM OXALATE 20 MG TAB PO SCH (09:14)
[2021-03-07] MEDS: INSULIN GLARGINE SOLOSTAR 100 UNITS/ML 3 ML PEN SC SCH (09:16)
[2021-03-07] MEDS: INSULIN ASPART 100 UNITS/ML 3 ML PEN SC SCH ×4 (09:16→21:30)
[2021-03-07] MEDS: LIDOCAINE 5% 1 PATCH TD SCH (09:28)
--- NOTE | 2021-03-07 11:45 | Hospitalist Progress Note ---
Date of Service March 07, 2021 Assessment & Plan (1) Cirrhosis: Plan: Cirrhosis secondary to STEVE w/ portal hypertension. Patient follows with gastroenterology, last seen by Dr. Toledo on 10/11/20. Patient had an EGD in June 2020 which showed no varices and mild portal-hypertensive gastropathy.HCV screening has been completed and is negative. AFP on 03/09/2019 = 2.6. INR =1.3. Elevation of AP and Tbili comparable to prior levels. - LFTs stable - Initially hospitalized w/ hepatic encephalopathy - at baseline mentation currently - Continue Lactulose, Rifaximin 550 mg p.o. twice daily, Titrate to 2-3 soft BMs/day - Pepcid 20mg po qHS - Last ammonia slightly elevated compared to prior but is in normal range for patient - checked due to tiredness, otherwise her mentation has been baseline x multiple weeks - Patient to have US in 1 year for HCC surveillance and EGD in 3 years for variceal screening. (2) Acute UTI: Plan: - Urine cx with Proteus resistance to FQs on 01/31, s/p treatment with Ceftriaxone - Urinary sx return 02/21, recultured showing coag neg staph not saprophytic, no history of staph UTI completed course of clindamycin - Vaginal itching/burning and was treated with clotrimazole x 7 days and finished treatment 02/21 - No currently urinary symptoms (3) Diabetes mellitus: Plan: Patient with type 2 diabetes, well controlled, long-term use of insulin. Last hemoglobin A1c=5.6 on 05/23/20. Patient follows with Endocrinology/Diabetes education. Last seen on 01/04/21. - Continue Lantus while here, Darryl as outpt - ISS - Goal blood sugar 100 - 140 - Recommend annual A1c monitoring - Is on hydrocortisone BID for suspected adrenal insufficiency - endocrinology questions the validity of ACTH deficiency diagnosis and plan to repeat testing to confirm diagnosis as outpatient - Follow up with building maintenance repairer outpatient as instructed (4) Seizure: Plan: Seizure disorder: Patient with history of seizure. She follows with neurology, last seen on 10/30/20 - follows for mixed tremor as well as dyskinesia and seizure history, parkinsonism. EEG completed in May 2018 revealed a generalized spike and slow wave abnormality consistent with an underlying generalized seizure disorder. Patient had an MRI brain completed in October 2017 which was unremarkable. Patient failed VNS placement in the past, device was explanted. Presently on topiramate, Trileptal and Keppra. 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 This has been discussed by the PCP. Target process complete and awaiting bed availability. Is stable for D/C pending arrangements. Multiple referrals placed and awaiting determination Admission and Anticipated Discharge Date Admission Date: January 31, 2021 Subjective Reports no complaints today. She does report urinary incontinence overnight which does occasionally happen however denies any other urinary symptom. Discussed with her yesterday as we are still waiting on referrals. He did mention about her coming temporarily home however still doesn't think it is a good idea. Pt keeps stating is okay with [facility] then her come home after but he has not mentioned this. Review of Systems Review of Systems: All systems reviewed & are unremarkable except as noted in Subjective Physical Exam Physical Exam: PHYSICAL EXAM General Appearance: Frail; in NAD who is A&O x 3 HEENT: Head is normocephalic/atraumatic; Hearing grossly intact; anicteric sclera Neck: Supple; Trachea midline; Neg JVD Heart: RRR with no M/G/R Lungs: CTA in all lung dyer bilaterally; Respirations unlabored; Neg accessory muscle use Abdomen: Soft, non-tender, non-distended; Positive BS x 4 quadrants Neurological: Speech clear; +tremor; + mild choreiform movements of head during this visit Psychiatric: Appropriate mood/affect Skin: Normal Color; Warm/Dry Results & Data Results & Data ([facility]) Vital Signs (Past 12 Hours) Vital Signs Temp Pulse Resp BP Pulse Ox 03/07/21 06:52 36.9 C 61 18 131/82 99 PG Care Time/CCT Total # of Minutes Spent Total Time Spent with Patient: Total time spent is greater than 50% in coordination of care (as documented) at patient's floor/unit and/or counseling patient: Coding Level of Care Code 75810 Subseq Hosp Care Lvl 2 Diagnoses Cirrhosis K74.60 Acute UTI N39.0 Diabetes mellitus E11.9 Seizure R56.9 Myoclonic seizure G40.409 Hyperammonemia E72.20 Parkinsonism G20
[2021-03-07] MEDS: MELATONIN 3 MG TAB PO SCH (21:31)
[2021-03-07] MEDS: FAMOTIDINE 20 MG TAB PO SCH (21:32)
[2021-03-07] MEDS: [UNRECOGNIZED DRUG - REMARK] SQ SCH (21:56)
[2021-03-08] MEDS: PROMETHAZINE HCL 25 MG TAB PO PRN (05:00)
[2021-03-08] MEDS: LEVOTHYROXINE SODIUM 50 MCG TABLET PO SCH (06:12)
[2021-03-08] MEDS: TOPIRAMATE 100 MG TAB PO SCH ×2 (08:41→21:48)
[2021-03-08] MEDS: HYDROCORTISONE 10 MG TAB PO SCH ×4 (08:41→16:08)
[2021-03-08] MEDS: MAGNESIUM OXIDE 400 MG TAB PO SCH ×2 (08:41→21:48)
[2021-03-08] MEDS: levETIRAcetam 500 MG TAB PO SCH ×2 (08:41→21:48)
[2021-03-08] MEDS: ESCITALOPRAM OXALATE 20 MG TAB PO SCH (08:42)
[2021-03-08] MEDS: PRAVASTATIN SOD 20 MG TAB PO SCH (08:42)
[2021-03-08] MEDS: rOPINIRole HCL 0.25 MG TABLET PO SCH ×2 (08:42→21:48)
[2021-03-08] MEDS: OXcarbazepine 150 MG TABLET PO SCH ×2 (08:42→21:48)
[2021-03-08] MEDS: BENZTROPINE MESYLATE 1 MG TAB PO SCH ×3 (08:43→21:48)
[2021-03-08] MEDS: FEXOFENADINE 60 MG TAB PO SCH (08:44)
[2021-03-08] MEDS: rifAXIMin 550 MG TABLET PO SCH ×2 (08:44→21:48)
[2021-03-08] MEDS: LIDOCAINE 5% 1 PATCH TD SCH (08:44)
[2021-03-08] MEDS: LACTULOSE SYRUP 20 GM/30 ML UDC PO SCH ×3 (08:45→17:51)
[2021-03-08] MEDS: INSULIN GLARGINE SOLOSTAR 100 UNITS/ML 3 ML PEN SC SCH (08:45)
[2021-03-08] MEDS: DICLOFENAC SOD 1% GEL 100 GM TUBE EXT SCH ×4 (09:12→21:49)
[2021-03-08] MEDS: INSULIN ASPART 100 UNITS/ML 3 ML PEN SC SCH ×4 (09:12→22:09)
--- NOTE | 2021-03-08 18:44 | Hospitalist Progress Note ---
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 Patient follows with gastroenterology, last seen by Dr. Toledo on 10/11/20. Patient had an EGD in June 2020 which showed no varices and mild portal-hypertensive gastropathy.HCV screening has been completed and is negative. AFP on 03/09/2019 = 2.6. INR =1.3. Elevation of AP and Tbili comparable to prior levels. - LFTs stable - Initially hospitalized w/ hepatic encephalopathy - at baseline mentation currently - Continue Lactulose, Rifaximin 550 mg p.o. twice daily, Titrate to 2-3 soft BMs/day - Pepcid 20mg po qHS - Last ammonia in normal range for patient - checked due to tiredness, otherwise her mentation has been baseline x multiple weeks - Patient to have US in 1 year for HCC surveillance and EGD in 3 years for variceal screening. (2) Acute UTI: Plan: - Urine cx with Proteus resistance to FQs on 01/31, s/p treatment with Ceftriaxone - Urinary sx return 02/21, recultured showing coag neg staph not saprophytic, no history of staph UTI completed course of clindamycin - Vaginal itching/burning and was treated with clotrimazole x 7 days and finished treatment 02/21 - No current urinary symptoms (3) Diabetes mellitus: Plan: Patient with type 2 diabetes, well controlled, long-term use of insulin. Last hemoglobin A1c=5.6 on 05/23/20. Patient follows with Endocrinology/Diabetes education. Last seen on 01/04/21. - Continue Lantus while here, Darryl as outpt - ISS - Goal blood sugar 100 - 140 - Recommend annual A1c monitoring - Is on hydrocortisone BID for suspected adrenal insufficiency - endocrinology questions the validity of ACTH deficiency diagnosis and plan to repeat testing to confirm diagnosis as outpatient - Follow up with paraeducator outpatient as instructed (4) Seizure: Plan: Seizure disorder: Patient with history of seizure. She follows with neurology, last seen on 10/30/20 - follows for mixed tremor as well as dyskinesia and seizure history, parkinsonism. EEG completed in May 2018 revealed a generalized spike and slow wave abnormality consistent with an underlying generalized seizure disorder. Patient had an MRI brain completed in October 2017 which was unremarkable. Patient failed VNS placement in the past, device was explanted. Presently on topiramate, Trileptal and Keppra. 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 This has been discussed by the PCP. Target process complete and awaiting bed availability. Is stable for D/C pending arrangements. Multiple referrals placed and awaiting determination. Updated at bedside Admission and Anticipated Discharge Date Admission Date: January 31, 2021 Subjective Patient seen with her at bedside. Today is their anniversary. Patient reports eating [employer] for dinner. was able to obtain carb count from the restaurant to assist with BSG coverage. Continue to report no urinary symptoms. Keeps asking to go to [facility] however discussed goals which is not short term rehab and that she would need to participate in 3 hours of therapy. Review of Systems Review of Systems: All systems reviewed & are unremarkable except as noted in Subjective Physical Exam Physical Exam: PHYSICAL EXAM General Appearance: Frail; in NAD who is A&O x 3 HEENT: Head is normocephalic/atraumatic; Hearing grossly intact; anicteric sclera Neck: Supple; Trachea midline; Neg JVD Heart: RRR with no M/G/R Lungs: CTA in all lung dyer bilaterally; Respirations unlabored; Neg accessory muscle use Abdomen: Soft, non-tender, non-distended; Positive BS x 4 quadrants Neurological: Speech clear; +tremor; + mild choreiform movements of head during this visit Psychiatric: Appropriate mood/affect Skin: Normal Color; Warm/Dry Results & Data Results & Data ([facility]) Vital Signs (Past 12 Hours) Vital Signs Temp Pulse Resp BP BP Pulse Ox 03/08/21 15:00 36.8 C 75 18 122/67 95 03/08/21 07:17 36.6 C 59 L 18 131/77 96 PG Care Time/CCT Total # of Minutes Spent Total Time Spent with Patient: Total time spent is greater than 50% in coordination of care (as documented) at patient's floor/unit and/or counseling patient: Coding Level of Care Code 54718 Subseq Hosp Care Lvl 2 Diagnoses Cirrhosis K74.60 Acute UTI N39.0 Diabetes mellitus E11.9 Seizure R56.9 Myoclonic seizure G40.409 Hyperammonemia E72.20 Parkinsonism G20
[2021-03-08] MEDS: HEPARIN 100 UNIT/ML 5ML FLUSH FLUSH PRN (19:02)
[2021-03-08] MEDS: [UNRECOGNIZED DRUG - REMARK] SQ SCH (21:48)
[2021-03-08] MEDS: FAMOTIDINE 20 MG TAB PO SCH (21:48)
[2021-03-08] MEDS: MELATONIN 3 MG TAB PO SCH (22:00)
[2021-03-09] MEDS: LEVOTHYROXINE SODIUM 50 MCG TABLET PO SCH (05:21)
[2021-03-09] MEDS: INSULIN ASPART 100 UNITS/ML 3 ML PEN SC SCH ×4 (09:21→21:05)
[2021-03-09] MEDS: INSULIN GLARGINE SOLOSTAR 100 UNITS/ML 3 ML PEN SC SCH (09:26)
[2021-03-09] MEDS: BENZTROPINE MESYLATE 1 MG TAB PO SCH ×3 (09:28→21:16)
[2021-03-09] MEDS: DICLOFENAC SOD 1% GEL 100 GM TUBE EXT SCH ×4 (09:28→21:16)
[2021-03-09] MEDS: ESCITALOPRAM OXALATE 20 MG TAB PO SCH (09:29)
[2021-03-09] MEDS: FEXOFENADINE 60 MG TAB PO SCH (09:37)
[2021-03-09] MEDS: LACTULOSE SYRUP 20 GM/30 ML UDC PO SCH ×3 (09:38→18:02)
[2021-03-09] MEDS: levETIRAcetam 500 MG TAB PO SCH ×2 (09:38→21:16)
[2021-03-09] MEDS: MAGNESIUM OXIDE 400 MG TAB PO SCH ×2 (09:39→21:16)
[2021-03-09] MEDS: LIDOCAINE 5% 1 PATCH TD SCH (09:39)
[2021-03-09] MEDS: rifAXIMin 550 MG TABLET PO SCH ×2 (09:41→21:16)
[2021-03-09] MEDS: OXcarbazepine 150 MG TABLET PO SCH ×2 (09:41→21:16)
[2021-03-09] MEDS: PRAVASTATIN SOD 20 MG TAB PO SCH (09:41)
[2021-03-09] MEDS: TOPIRAMATE 100 MG TAB PO SCH ×2 (09:42→21:16)
[2021-03-09] MEDS: rOPINIRole HCL 0.25 MG TABLET PO SCH ×2 (09:42→21:16)
[2021-03-09] MEDS: HYDROCORTISONE 10 MG TAB PO SCH (15:31)
--- NOTE | 2021-03-09 19:11 | Hospitalist Progress Note ---
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 Patient follows with gastroenterology, last seen by Dr. Toledo on 10/11/20. Patient had an EGD in June 2020 which showed no varices and mild portal-hypertensive gastropathy.HCV screening has been completed and is negative. AFP on 03/09/2019 = 2.6. INR =1.3. Elevation of AP and Tbili comparable to prior levels. - LFTs stable - Initially hospitalized w/ hepatic encephalopathy - at baseline mentation currently - Continue Lactulose, Rifaximin 550 mg p.o. twice daily, Titrate to 2-3 soft BMs/day - Pepcid 20mg po qHS - Last ammonia in normal range for patient - checked due to tiredness, otherwise her mentation has been baseline x multiple weeks - Patient to have US in 1 year for HCC surveillance and EGD in 3 years for variceal screening. (2) Acute UTI: Plan: - Urine cx with Proteus resistance to FQs on 01/31, s/p treatment with Ceftriaxone - Urinary sx return 02/21, recultured showing coag neg staph not saprophytic, no history of staph UTI completed course of clindamycin - Vaginal itching/burning and was treated with clotrimazole x 7 days and finished treatment 02/21 - No current urinary symptoms (3) Diabetes mellitus: Plan: Patient with type 2 diabetes, well controlled, long-term use of insulin. Last hemoglobin A1c=5.6 on 05/23/20. Patient follows with Endocrinology/Diabetes education. Last seen on 01/04/21. - Continue Lantus while here, Darryl as outpt - ISS - Goal blood sugar 100 - 140 - Recommend annual A1c monitoring - Is on hydrocortisone BID for suspected adrenal insufficiency - endocrinology questions the validity of ACTH deficiency diagnosis and plan to repeat testing to confirm diagnosis as outpatient - Follow up with special education paraeducator outpatient as instructed (4) Seizure: Plan: Seizure disorder: Patient with history of seizure. She follows with neurology, last seen on 10/30/20 - follows for mixed tremor as well as dyskinesia and seizure history, parkinsonism. EEG completed in May 2018 revealed a generalized spike and slow wave abnormality consistent with an underlying generalized seizure disorder. Patient had an MRI brain completed in October 2017 which was unremarkable. Patient failed VNS placement in the past, device was explanted. Presently on topiramate, Trileptal and Keppra. 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 This has been discussed by the PCP. Target process complete and awaiting bed availability. Is stable for D/C pending arrangements. Multiple referrals placed and awaiting determination. Updated at bedside Admission and Anticipated Discharge Date Admission Date: January 31, 2021 Subjective Reports no complaints today. About to eat lobster bisque soup her brought in. She continues to insist she would like to go to [facility] even after explaining the goal is long-term placement and needing to participate in 3+ hours of PT. supports long-term placement. Review of Systems Review of Systems: All systems reviewed & are unremarkable except as noted in Subjective Physical Exam Physical Exam: PHYSICAL EXAM General Appearance: Frail; in NAD who is A&O x 3 HEENT: Head is normocephalic/atraumatic; Hearing grossly intact; anicteric sclera Neck: Supple; Trachea midline; Neg JVD Heart: RRR with no M/G/R Lungs: CTA in all lung dyer bilaterally; Respirations unlabored; Neg accessory muscle use Abdomen: Soft, non-tender, non-distended; Positive BS x 4 quadrants Neurological: Speech clear; +tremor; + mild choreiform movements of head during this visit Psychiatric: Appropriate mood/affect Skin: Normal Color; Warm/Dry Results & Data Results & Data ([facility]) Vital Signs (Past 12 Hours) Vital Signs Temp Pulse Resp BP Pulse Ox 03/09/21 15:43 36.8 C 66 18 145/78 H 98 PG Care Time/CCT Total # of Minutes Spent Total Time Spent with Patient: Total time spent is greater than 50% in coordination of care (as documented) at patient's floor/unit and/or counseling patient: Coding Level of Care Code 75976 Subseq Hosp Care Lvl 1 Diagnoses Cirrhosis K74.60 Acute UTI N39.0 Diabetes mellitus E11.9 Seizure R56.9 Myoclonic seizure G40.409 Hyperammonemia E72.20 Parkinsonism G20
[2021-03-09] MEDS: MELATONIN 3 MG TAB PO SCH (21:16)
[2021-03-09] MEDS: FAMOTIDINE 20 MG TAB PO SCH (21:16)
[2021-03-09] MEDS: [UNRECOGNIZED DRUG - REMARK] SQ SCH (21:17)
[2021-03-10] MEDS: LEVOTHYROXINE SODIUM 50 MCG TABLET PO SCH (05:09)
[2021-03-10] MEDS: HEPARIN 100 UNIT/ML 5ML FLUSH FLUSH PRN (09:16)
[2021-03-10] MEDS: INSULIN ASPART 100 UNITS/ML 3 ML PEN SC SCH ×4 (09:29→21:42)
[2021-03-10] MEDS: INSULIN GLARGINE SOLOSTAR 100 UNITS/ML 3 ML PEN SC SCH (09:30)
[2021-03-10] MEDS: BENZTROPINE MESYLATE 1 MG TAB PO SCH ×3 (09:33→21:39)
[2021-03-10] MEDS: DICLOFENAC SOD 1% GEL 100 GM TUBE EXT SCH ×4 (09:34→21:40)
[2021-03-10] MEDS: ESCITALOPRAM OXALATE 20 MG TAB PO SCH (09:35)
[2021-03-10] MEDS: FEXOFENADINE 60 MG TAB PO SCH (09:35)
[2021-03-10] MEDS: HYDROCORTISONE 10 MG TAB PO SCH ×2 (09:36→15:51)
[2021-03-10] MEDS: LACTULOSE SYRUP 20 GM/30 ML UDC PO SCH ×4 (09:36→18:20)
[2021-03-10] MEDS: levETIRAcetam 500 MG TAB PO SCH ×2 (09:36→21:39)
[2021-03-10] MEDS: MAGNESIUM OXIDE 400 MG TAB PO SCH ×2 (09:37→21:39)
[2021-03-10] MEDS: LIDOCAINE 5% 1 PATCH TD SCH (09:37)
[2021-03-10] MEDS: rifAXIMin 550 MG TABLET PO SCH ×2 (09:38→21:39)
[2021-03-10] MEDS: OXcarbazepine 150 MG TABLET PO SCH ×2 (09:38→21:39)
[2021-03-10] MEDS: PRAVASTATIN SOD 20 MG TAB PO SCH (09:38)
[2021-03-10] MEDS: rOPINIRole HCL 0.25 MG TABLET PO SCH ×2 (09:39→21:39)
[2021-03-10] MEDS: TOPIRAMATE 100 MG TAB PO SCH ×2 (09:39→21:39)
--- NOTE | 2021-03-10 09:42 | Hospitalist Progress Note ---
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 Patient follows with gastroenterology, last seen by Dr. Toledo on 10/11/20. Patient had an EGD in June 2020 which showed no varices and mild portal-hypertensive gastropathy.HCV screening has been completed and is negative. AFP on 03/09/2019 = 2.6. INR =1.3. Elevation of AP and Tbili comparable to prior levels. - LFTs stable - Initially hospitalized w/ hepatic encephalopathy - at baseline mentation currently - Continue Lactulose, Rifaximin 550 mg p.o. twice daily, Titrate to 2-3 soft BMs/day - Pepcid 20mg po qHS - Last ammonia in normal range for patient - checked due to tiredness, otherwise her mentation has been baseline x multiple weeks - Patient to have US in 1 year for HCC surveillance and EGD in 3 years for variceal screening. (2) Acute UTI: Plan: - Urine cx with Proteus resistance to FQs on 01/31, s/p treatment with Ceftriaxone - Urinary sx return 02/21, recultured showing coag neg staph not saprophytic, no history of staph UTI completed course of clindamycin - Vaginal itching/burning and was treated with clotrimazole x 7 days and finished treatment 02/21 - No current urinary symptoms (3) Diabetes mellitus: Plan: Patient with type 2 diabetes, well controlled, long-term use of insulin. Last hemoglobin A1c=5.6 on 05/23/20. Patient follows with Endocrinology/Diabetes education. Last seen on 01/04/21. - Continue Lantus while here, Darryl as outpt - ISS - Goal blood sugar 100 - 140 - Recommend annual A1c monitoring - Is on hydrocortisone BID for suspected adrenal insufficiency - endocrinology questions the validity of ACTH deficiency diagnosis and plan to repeat testing to confirm diagnosis as outpatient - Follow up with asthma educator outpatient as instructed (4) Seizure: Plan: Seizure disorder: Patient with history of seizure. She follows with neurology, last seen on 10/30/20 - follows for mixed tremor as well as dyskinesia and seizure history, parkinsonism. EEG completed in May 2018 revealed a generalized spike and slow wave abnormality consistent with an underlying generalized seizure disorder. Patient had an MRI brain completed in October 2017 which was unremarkable. Patient failed VNS placement in the past, device was explanted. Presently on topiramate, Trileptal and Keppra. 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 This has been discussed by the PCP. Target process complete and awaiting bed availability. Is stable for D/C pending arrangements. Multiple referrals placed and awaiting determination. Updated at bedside Admission and Anticipated Discharge Date Admission Date: January 31, 2021 Subjective Reports no complaints today. About to eat lobster bisque soup her brought in. She continues request [facility] even after explaining the goal is long-term placement and supports long-term placement. Review of Systems Review of Systems: CONSTITUTIONAL: Denies weight loss/gain, fever and chills, fatigue, malaise, generalized weakness. HEENT: Denies changes in vision and hearing. RESPIRATORY: Denies SOB, cough, wheezing. CV: Denies palpitations, CP, lower extremity edema, orthopnea, PND. GI: Denies abdominal pain, nausea, vomiting and diarrhea. : Denies dysuria and urinary frequency, urgency, hesitancy. MUSCULOSKELETAL: +right knee pain--better with rest, not bothersome currently. SKIN: Denies rash and pruritus. NEUROLOGICAL: Denies headache, syncope, focal weakness, numbness, tingling. PSYCHIATRIC: More agitated today. Denies anxiety and depression. Physical Exam Physical Exam: The patient appeared well Vital signs as documented. Lungs are clear to auscultation and appear unlabored Cardiac exam, Rhythm is regular.. No murmurs, rubs or gallops. Abdominal exam reveals normal bowel sounds, soft non tender, no masses Extremities are nonedematous and both pedal pulses are normal. Neurologic exam is alert and oriented, no focal loss of strength or sensation Skin is without bruises or rashes Psychologically is without concerns for anxiety or depression. Results & Data Results & Data ([facility]) Vital Signs (Past 12 Hours) Vital Signs Temp Pulse Resp BP Pulse Ox 03/10/21 07:20 98.1 F 66 16 125/68 98 03/09/21 23:06 97.9 F 64 16 123/75 96 PG Care Time/CCT Total # of Minutes Spent Total Time Spent with Patient: Total time spent is greater than 50% in coordination of care (as documented) at patient's floor/unit and/or counseling patient: Coding Level of Care Code 83947 Subseq Hosp Care Lvl 2 Diagnoses Cirrhosis K74.60 Acute UTI N39.0 Diabetes mellitus E11.9 Seizure R56.9 Myoclonic seizure G40.409 Hyperammonemia E72.20 Parkinsonism G20
[2021-03-10] MEDS: FAMOTIDINE 20 MG TAB PO SCH (21:39)
[2021-03-10] MEDS: [UNRECOGNIZED DRUG - REMARK] SQ SCH (21:40)
[2021-03-10] MEDS: MELATONIN 3 MG TAB PO SCH (21:44)
[2021-03-11] MEDS: LEVOTHYROXINE SODIUM 50 MCG TABLET PO SCH (05:50)
[2021-03-11] MEDS: PRAVASTATIN SOD 20 MG TAB PO SCH (09:11)
[2021-03-11] MEDS: rOPINIRole HCL 0.25 MG TABLET PO SCH ×2 (09:11→20:54)
[2021-03-11] MEDS: BENZTROPINE MESYLATE 1 MG TAB PO SCH ×3 (09:11→20:53)
[2021-03-11] MEDS: HYDROCORTISONE 10 MG TAB PO SCH ×2 (09:11→15:08)
[2021-03-11] MEDS: OXcarbazepine 150 MG TABLET PO SCH ×2 (09:12→20:51)
[2021-03-11] MEDS: ESCITALOPRAM OXALATE 20 MG TAB PO SCH (09:12)
[2021-03-11] MEDS: levETIRAcetam 500 MG TAB PO SCH ×2 (09:12→20:53)
[2021-03-11] MEDS: TOPIRAMATE 100 MG TAB PO SCH ×2 (09:12→20:52)
[2021-03-11] MEDS: FEXOFENADINE 60 MG TAB PO SCH (09:12)
[2021-03-11] MEDS: MAGNESIUM OXIDE 400 MG TAB PO SCH ×2 (09:12→20:53)
[2021-03-11] MEDS: rifAXIMin 550 MG TABLET PO SCH ×2 (09:12→20:51)
[2021-03-11] MEDS: INSULIN GLARGINE SOLOSTAR 100 UNITS/ML 3 ML PEN SC SCH (09:13)
[2021-03-11] MEDS: INSULIN ASPART 100 UNITS/ML 3 ML PEN SC SCH ×4 (09:13→18:01)
[2021-03-11] MEDS: LIDOCAINE 5% 1 PATCH TD SCH (09:14)
[2021-03-11] MEDS: LACTULOSE SYRUP 20 GM/30 ML UDC PO SCH ×3 (09:14→18:01)
[2021-03-11] MEDS: DICLOFENAC SOD 1% GEL 100 GM TUBE EXT SCH ×4 (09:15→20:55)
[2021-03-11] MEDS ORDERED: INSULIN ASPART PER UNIT ONE ×2 (13:14→18:00)
--- NOTE | 2021-03-11 15:33 | Hospitalist Progress Note ---
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 Patient follows with gastroenterology, last seen by Dr. Toledo on 10/11/20. Patient had an EGD in June 2020 which showed no varices and mild portal-hypertensive gastropathy.HCV screening has been completed and is negative. AFP on 03/09/2019 = 2.6. INR =1.3. Elevation of AP and Tbili comparable to prior levels. - LFTs stable - Initially hospitalized w/ hepatic encephalopathy - at baseline mentation currently - Continue Lactulose, Rifaximin 550 mg p.o. twice daily, Titrate to 2-3 soft BMs/day - Pepcid 20mg po qHS - Last ammonia in normal range for patient - checked due to tiredness, otherwise her mentation has been baseline x multiple weeks - Patient to have US in 1 year for HCC surveillance and EGD in 3 years for variceal screening. (2) Acute UTI: Plan: - Urine cx with Proteus resistance to FQs on 01/31, s/p treatment with Ceftriaxone - Urinary sx return 02/21, recultured showing coag neg staph not saprophytic, no history of staph UTI completed course of clindamycin - Vaginal itching/burning and was treated with clotrimazole x 7 days and finished treatment 02/21 - No current urinary symptoms (3) Diabetes mellitus: Plan: Patient with type 2 diabetes, well controlled, long-term use of insulin. Last hemoglobin A1c=5.6 on 05/23/20. Patient follows with Endocrinology/Diabetes education. Last seen on 01/04/21. - Continue Lantus while here, Darryl as outpt - ISS - Goal blood sugar 100 - 140 - Recommend annual A1c monitoring - Is on hydrocortisone BID for suspected adrenal insufficiency - endocrinology questions the validity of ACTH deficiency diagnosis and plan to repeat testing to confirm diagnosis as outpatient - Follow up with staff educator outpatient as instructed (4) Seizure: Plan: Seizure disorder: Patient with history of seizure. She follows with neurology, last seen on 10/30/20 - follows for mixed tremor as well as dyskinesia and seizure history, parkinsonism. EEG completed in May 2018 revealed a generalized spike and slow wave abnormality consistent with an underlying generalized seizure disorder. Patient had an MRI brain completed in October 2017 which was unremarkable. Patient failed VNS placement in the past, device was explanted. Presently on topiramate, Trileptal and Keppra. 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 This has been discussed by the PCP. Target process complete and awaiting bed availability. Is stable for D/C pending arrangements. Multiple referrals placed and awaiting determination. Updated at bedside Admission and Anticipated Discharge Date Admission Date: January 31, 2021 Subjective Reports no complaints today. She continues request [facility] even after explaining the goal is long-term placement and supports long-term placement but this is not acute rehab at [facility]. Review of Systems Review of Systems: CONSTITUTIONAL: Denies weight loss/gain, fever and chills, fatigue, malaise, generalized weakness. HEENT: Denies changes in vision and hearing. RESPIRATORY: Denies SOB, cough, wheezing. CV: Denies palpitations, CP, lower extremity edema, orthopnea, PND. GI: Denies abdominal pain, nausea, vomiting and diarrhea. : Denies dysuria and urinary frequency, urgency, hesitancy. MUSCULOSKELETAL: +right knee pain--better with rest, not bothersome currently. SKIN: Denies rash and pruritus. NEUROLOGICAL: Denies headache, syncope, focal weakness, numbness, tingling. PSYCHIATRIC: More agitated today. Denies anxiety and depression. Physical Exam Physical Exam: The patient appeared well Vital signs as documented. Lungs are clear to auscultation and appear unlabored Cardiac exam, Rhythm is regular.. No murmurs, rubs or gallops. Abdominal exam reveals normal bowel sounds, soft non tender, no masses Extremities are nonedematous and both pedal pulses are normal. Neurologic exam is alert and oriented, no focal loss of strength or sensation Skin is without bruises or rashes Psychologically is without concerns for anxiety or depression. Results & Data Results & Data ([facility]) Vital Signs (Past 12 Hours) Vital Signs Temp Pulse Resp BP Pulse Ox 03/11/21 07:08 98.1 F 65 16 137/78 99 PG Care Time/CCT Total # of Minutes Spent Total Time Spent with Patient: Total time spent is greater than 50% in coordination of care (as documented) at patient's floor/unit and/or counseling patient: Coding Level of Care Code 10114 Subseq Hosp Care Lvl 1 Diagnoses Cirrhosis K74.60 Acute UTI N39.0 Diabetes mellitus E11.9 Seizure R56.9 Myoclonic seizure G40.409 Hyperammonemia E72.20 Parkinsonism G20
[2021-03-11] MEDS: FAMOTIDINE 20 MG TAB PO SCH (20:55)
[2021-03-11] MEDS: MELATONIN 3 MG TAB PO SCH (20:58)
[2021-03-11] MEDS: [UNRECOGNIZED DRUG - REMARK] SQ SCH (20:59)
[2021-03-11] MEDS: INSULIN ASPART PER UNIT SC SCH (21:50)
[2021-03-12] MEDS: LEVOTHYROXINE SODIUM 50 MCG TABLET PO SCH (05:35)
[2021-03-12] MEDS: HEPARIN 100 UNIT/ML 5ML FLUSH FLUSH PRN (05:50)
[2021-03-12] MEDS: rOPINIRole HCL 0.25 MG TABLET PO SCH ×2 (08:16→21:23)
[2021-03-12] MEDS: BENZTROPINE MESYLATE 1 MG TAB PO SCH ×3 (08:17→21:22)
[2021-03-12] MEDS: levETIRAcetam 500 MG TAB PO SCH ×2 (08:17→21:24)
[2021-03-12] MEDS: rifAXIMin 550 MG TABLET PO SCH ×2 (08:18→21:24)
[2021-03-12] MEDS: MAGNESIUM OXIDE 400 MG TAB PO SCH ×2 (08:18→21:23)
[2021-03-12] MEDS: TOPIRAMATE 100 MG TAB PO SCH ×2 (08:18→21:23)
[2021-03-12] MEDS: FEXOFENADINE 60 MG TAB PO SCH (08:19)
[2021-03-12] MEDS: OXcarbazepine 150 MG TABLET PO SCH ×2 (08:19→21:25)
[2021-03-12] MEDS: HYDROCORTISONE 10 MG TAB PO SCH ×2 (08:19→15:19)
[2021-03-12] MEDS: LIDOCAINE 5% 1 PATCH TD SCH (08:20)
[2021-03-12] MEDS: ESCITALOPRAM OXALATE 20 MG TAB PO SCH (08:20)
[2021-03-12] MEDS: PRAVASTATIN SOD 20 MG TAB PO SCH (08:20)
[2021-03-12] MEDS: LACTULOSE SYRUP 20 GM/30 ML UDC PO SCH ×3 (08:22→17:53)
[2021-03-12] MEDS: DICLOFENAC SOD 1% GEL 100 GM TUBE EXT SCH ×4 (08:35→21:25)
[2021-03-12] MEDS: INSULIN GLARGINE SOLOSTAR 100 UNITS/ML 3 ML PEN SC SCH (08:51)
[2021-03-12] MEDS: INSULIN ASPART PER UNIT SC SCH ×4 (08:51→21:31)
--- NOTE | 2021-03-12 21:05 | Hospitalist Progress Note ---
Date of Service March 12, 2021 Assessment & Plan (1) Cirrhosis: Plan: No new issues of been occurring with this patient over the last days as we are waiting for placement. Cirrhosis secondary to STEVE w/ portal hypertension. Patient follows with gastroenterology, last seen by Dr. Toledo on 10/11/20. Patient had an EGD in June 2020 which showed no varices and mild portal-hypertensive gastropathy.HCV screening has been completed and is negative. AFP on 03/09/2019 = 2.6. INR =1.3. Elevation of AP and Tbili comparable to prior levels. - LFTs stable - Initially hospitalized w/ hepatic encephalopathy - at baseline mentation currently - Continue Lactulose, Rifaximin 550 mg p.o. twice daily, Titrate to 2-3 soft BMs/day - Pepcid 20mg po qHS - Last ammonia in normal range for patient - checked due to tiredness, otherwise her mentation has been baseline x multiple weeks - Patient to have US in 1 year for HCC surveillance and EGD in 3 years for variceal screening. (2) Acute UTI: Plan: - Urine cx with Proteus resistance to FQs on 01/31, s/p treatment with Ceftriaxone - Urinary sx return 02/21, recultured showing coag neg staph not saprophytic, no history of staph UTI completed course of clindamycin - Vaginal itching/burning and was treated with clotrimazole x 7 days and finished treatment 02/21 - No current urinary symptoms (3) Diabetes mellitus: Plan: Patient with type 2 diabetes, well controlled, long-term use of insulin. Last hemoglobin A1c=5.6 on 05/23/20. Patient follows with Endocrinology/Diabetes education. Last seen on 01/04/21. - Continue Lantus while here, Tresiba as outpt - ISS - Goal blood sugar 100 - 140 - Recommend annual A1c monitoring - Is on hydrocortisone BID for suspected adrenal insufficiency - endocrinology questions the validity of ACTH deficiency diagnosis and plan to repeat testing to confirm diagnosis as outpatient - Follow up with supervisor mails outpatient as instructed (4) Seizure: Plan: Seizure disorder: Patient with history of seizure. She follows with neurology, last seen on 10/30/20 - follows for mixed tremor as well as dyskinesia and seizure history, parkinsonism. EEG completed in May 2018 revealed a generalized spike and slow wave abnormality consistent with an underlying generalized seizure disorder. Patient had an MRI brain completed in October 2017 which was unremarkable. Patient failed VNS placement in the past, device was explanted. Presently on topiramate, Trileptal and Keppra. 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 This has been discussed by the PCP. Target process complete and awaiting bed availability. Is stable for D/C pending arrangements. Multiple referrals placed and awaiting determination. Updated at bedside Admission and Anticipated Discharge Date Admission Date: January 31, 2021 Subjective Reports no complaints today. She continues request [facility] even after explaining the goal is long-term placement and supports long-term placement but this is not acute rehab at [facility]. Review of Systems Review of Systems: Mild distress and fatigue no headache, no visual changes no speech or swallowing issues no chest pain, pressure or palpitations no shortness of breath, cough or wheezes no abdominal pain, nausea or vomiting, diarrhea associated with lactulose therapy no dysuria, hematuria or frequency no focal joint pain or swelling no back pain, CVA tenderness or radicular pain no bruising, bleeding or rashes no focal signs of weakness or numbness or altered sensation has facial tremor consistent with tardive dyskinesia from psychiatric medications no complaints of anxiety or depression.. Physical Exam Physical Exam: The patient appeared well Vital signs as documented. Lungs are clear to auscultation and appear unlabored Cardiac exam, Rhythm is regular.. No murmurs, rubs or gallops. Abdominal exam reveals normal bowel sounds, soft non tender, no masses Extremities are nonedematous and both pedal pulses are normal. Neurologic exam is alert and oriented, no focal loss of strength or sensation Skin is without bruises or rashes Psychologically is without concerns for anxiety or depression. Results & Data Results & Data ([facility]) Vital Signs (Past 12 Hours) Vital Signs Temp Pulse Resp BP Pulse Ox 03/12/21 15:05 98.8 F 80 18 128/77 98 PG Care Time/CCT Total # of Minutes Spent Total Time Spent with Patient: Total time spent is greater than 50% in coordination of care (as documented) at patient's floor/unit and/or counseling patient: Coding Level of Care Code 30677 Subseq Hosp Care Lvl 1 Diagnoses Cirrhosis K74.60 Acute UTI N39.0 Diabetes mellitus E11.9 Seizure R56.9 Myoclonic seizure G40.409 Hyperammonemia E72.20 Parkinsonism G20
[2021-03-12] MEDS: FAMOTIDINE 20 MG TAB PO SCH (21:25)
[2021-03-12] MEDS: MELATONIN 3 MG TAB PO SCH (21:30)
[2021-03-12] MEDS: [UNRECOGNIZED DRUG - REMARK] SQ SCH (21:40)
[2021-03-13] MEDS: LEVOTHYROXINE SODIUM 50 MCG TABLET PO SCH (06:01)
[2021-03-13] MEDS: TOPIRAMATE 100 MG TAB PO SCH ×2 (08:34→21:23)
[2021-03-13] MEDS: HYDROCORTISONE 10 MG TAB PO SCH ×2 (08:34→15:46)
[2021-03-13] MEDS: FEXOFENADINE 60 MG TAB PO SCH (08:35)
[2021-03-13] MEDS: OXcarbazepine 150 MG TABLET PO SCH ×2 (08:35→21:24)
[2021-03-13] MEDS: ESCITALOPRAM OXALATE 20 MG TAB PO SCH (08:35)
[2021-03-13] MEDS: PRAVASTATIN SOD 20 MG TAB PO SCH (08:36)
[2021-03-13] MEDS: levETIRAcetam 500 MG TAB PO SCH ×2 (08:36→21:25)
[2021-03-13] MEDS: rOPINIRole HCL 0.25 MG TABLET PO SCH ×2 (08:37→21:25)
[2021-03-13] MEDS: DICLOFENAC SOD 1% GEL 100 GM TUBE EXT SCH ×4 (08:38→21:20)
[2021-03-13] MEDS: rifAXIMin 550 MG TABLET PO SCH ×2 (08:38→21:19)
[2021-03-13] MEDS: MAGNESIUM OXIDE 400 MG TAB PO SCH ×2 (08:38→21:23)
[2021-03-13] MEDS: BENZTROPINE MESYLATE 1 MG TAB PO SCH ×3 (08:38→21:18)
[2021-03-13] MEDS: LIDOCAINE 5% 1 PATCH TD SCH (08:39)
[2021-03-13] MEDS: INSULIN ASPART PER UNIT SC SCH ×4 (08:45→21:44)
[2021-03-13] MEDS: INSULIN GLARGINE SOLOSTAR 100 UNITS/ML 3 ML PEN SC SCH (08:45)
[2021-03-13] MEDS: LACTULOSE SYRUP 20 GM/30 ML UDC PO SCH ×3 (08:54→18:15)
--- NOTE | 2021-03-13 19:41 | Hospitalist Progress Note ---
Date of Service March 13, 2021 Assessment & Plan (1) Cirrhosis: Plan: No new issues of been occurring with this patient over the last days as we are waiting for placement. Cirrhosis secondary to STEVE w/ portal hypertension. Patient follows with gastroenterology, last seen by Dr. Toledo on 10/11/20. Patient had an EGD in June 2020 which showed no varices and mild portal-hypertensive gastropathy.HCV screening has been completed and is negative. AFP on 03/09/2019 = 2.6. INR =1.3. Elevation of AP and Tbili comparable to prior levels. - LFTs stable - Initially hospitalized w/ hepatic encephalopathy - at baseline mentation currently - Continue Lactulose, Rifaximin 550 mg p.o. twice daily, Titrate to 2-3 soft BMs/day - Pepcid 20mg po qHS - Last ammonia in normal range for patient - checked due to tiredness, otherwise her mentation has been baseline x multiple weeks - Patient to have US in 1 year for HCC surveillance and EGD in 3 years for variceal screening. (2) Acute UTI: Plan: - Urine cx with Proteus resistance to FQs on 01/31, s/p treatment with Ceftriaxone - Urinary sx return 02/21, recultured showing coag neg staph not saprophytic, no history of staph UTI completed course of clindamycin - Vaginal itching/burning and was treated with clotrimazole x 7 days and finished treatment 02/21 - No current urinary symptoms (3) Diabetes mellitus: Plan: Patient with type 2 diabetes, well controlled, long-term use of insulin. Last hemoglobin A1c=5.6 on 05/23/20. Patient follows with Endocrinology/Diabetes education. Last seen on 01/04/21. - Continue Lantus while here, Tresiba as outpt - ISS - Goal blood sugar 100 - 140 - Recommend annual A1c monitoring - Is on hydrocortisone BID for suspected adrenal insufficiency - endocrinology questions the validity of ACTH deficiency diagnosis and plan to repeat testing to confirm diagnosis as outpatient - Follow up with chemical educator outpatient as instructed (4) Seizure: Plan: Seizure disorder: Patient with history of seizure. She follows with neurology, last seen on 10/30/20 - follows for mixed tremor as well as dyskinesia and seizure history, parkinsonism. EEG completed in May 2018 revealed a generalized spike and slow wave abnormality consistent with an underlying generalized seizure disorder. Patient had an MRI brain completed in October 2017 which was unremarkable. Patient failed VNS placement in the past, device was explanted. Presently on topiramate, Trileptal and Keppra. 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 This has been discussed by the PCP. Target process complete and awaiting bed availability. Is stable for D/C pending arrangements. Multiple referrals placed and awaiting determination. Updated at bedside Admission and Anticipated Discharge Date Admission Date: January 31, 2021 Subjective Reports no complaints today. She continues request [facility] even after explaining the goal is long-term placement and supports long-term placement but this is not acute rehab at [facility]. did state he will take her home if they can have in-home caregivers which is currently not of benefit supplied by her care insurance Review of Systems Review of Systems: Mild distress and fatigue no headache, no visual changes no speech or swallowing issues no chest pain, pressure or palpitations no shortness of breath, cough or wheezes no abdominal pain, nausea or vomiting, diarrhea associated with lactulose therapy no dysuria, hematuria or frequency no focal joint pain or swelling no back pain, CVA tenderness or radicular pain no bruising, bleeding or rashes no focal signs of weakness or numbness or altered sensation has facial tremor consistent with tardive dyskinesia from psychiatric medications no complaints of anxiety or depression.. Physical Exam Physical Exam: The patient appeared well Vital signs as documented. Lungs are clear to auscultation and appear unlabored Cardiac exam, Rhythm is regular.. No murmurs, rubs or gallops. Abdominal exam reveals normal bowel sounds, soft non tender, no masses Extremities are nonedematous and both pedal pulses are normal. Neurologic exam is alert and oriented, no focal loss of strength or sensation Skin is without bruises or rashes Psychologically is without concerns for anxiety or depression. Results & Data Results & Data ([facility]) Vital Signs (Past 12 Hours) Vital Signs Temp Pulse Resp BP Pulse Ox 03/13/21 15:00 98.2 F 78 20 150/83 H 100 PG Care Time/CCT Total # of Minutes Spent Total Time Spent with Patient: Total time spent is greater than 50% in coordination of care (as documented) at patient's floor/unit and/or counseling patient: Coding Level of Care Code 87472 Subseq Hosp Care Lvl 1 Diagnoses Cirrhosis K74.60 Acute UTI N39.0 Diabetes mellitus E11.9 Seizure R56.9 Myoclonic seizure G40.409 Hyperammonemia E72.20 Parkinsonism G20
[2021-03-13] MEDS: FAMOTIDINE 20 MG TAB PO SCH (21:25)
[2021-03-13] MEDS: MELATONIN 3 MG TAB PO SCH (21:31)
[2021-03-13] MEDS: [UNRECOGNIZED DRUG - REMARK] SQ SCH (21:32)
[2021-03-14] MEDS: LEVOTHYROXINE SODIUM 50 MCG TABLET PO SCH (06:02)
[2021-03-14] MEDS: LACTULOSE SYRUP 20 GM/30 ML UDC PO SCH ×3 (07:35→17:29)
[2021-03-14] MEDS: MAGNESIUM OXIDE 400 MG TAB PO SCH ×2 (07:35→21:54)
[2021-03-14] MEDS: PRAVASTATIN SOD 20 MG TAB PO SCH (07:35)
[2021-03-14] MEDS: rifAXIMin 550 MG TABLET PO SCH ×2 (07:35→21:54)
[2021-03-14] MEDS: OXcarbazepine 150 MG TABLET PO SCH ×2 (07:35→21:52)
[2021-03-14] MEDS: BENZTROPINE MESYLATE 1 MG TAB PO SCH ×3 (07:35→21:55)
[2021-03-14] MEDS: rOPINIRole HCL 0.25 MG TABLET PO SCH ×2 (07:35→21:53)
[2021-03-14] MEDS: levETIRAcetam 500 MG TAB PO SCH ×2 (07:35→21:51)
[2021-03-14] MEDS: TOPIRAMATE 100 MG TAB PO SCH ×2 (07:35→21:53)
[2021-03-14] MEDS: HYDROCORTISONE 10 MG TAB PO SCH ×2 (07:36→14:17)
[2021-03-14] MEDS: FEXOFENADINE 60 MG TAB PO SCH (07:36)
[2021-03-14] MEDS: ESCITALOPRAM OXALATE 20 MG TAB PO SCH (07:36)
[2021-03-14] MEDS: DICLOFENAC SOD 1% GEL 100 GM TUBE EXT SCH ×4 (07:38→21:54)
[2021-03-14] MEDS: LIDOCAINE 5% 1 PATCH TD SCH (07:38)
[2021-03-14] MEDS: HEPARIN 100 UNIT/ML 5ML FLUSH FLUSH PRN (07:44)
[2021-03-14] MEDS: INSULIN GLARGINE SOLOSTAR 100 UNITS/ML 3 ML PEN SC SCH (09:20)
[2021-03-14] MEDS: INSULIN ASPART PER UNIT SC SCH ×4 (09:21→21:11)
--- NOTE | 2021-03-14 19:38 | Hospitalist Progress Note ---
Date of Service March 14, 2021 Assessment & Plan (1) Cirrhosis: Plan: No new issues of been occurring with this patient over the last days as we are waiting for placement. Cirrhosis secondary to STEVE w/ portal hypertension. Patient follows with gastroenterology, last seen by Dr. Toledo on 10/11/20. Patient had an EGD in June 2020 which showed no varices and mild portal-hypertensive gastropathy.HCV screening has been completed and is negative. AFP on 03/09/2019 = 2.6. INR =1.3. Elevation of AP and Tbili comparable to prior levels. - LFTs stable - Initially hospitalized w/ hepatic encephalopathy - at baseline mentation currently - Continue Lactulose, Rifaximin 550 mg p.o. twice daily, Titrate to 2-3 soft BMs/day - Pepcid 20mg po qHS - Last ammonia in normal range for patient - checked due to tiredness, otherwise her mentation has been baseline x multiple weeks - Patient to have US in 1 year for HCC surveillance and EGD in 3 years for variceal screening. (2) Acute UTI: Plan: - Urine cx with Proteus resistance to FQs on 01/31, s/p treatment with Ceftriaxone - Urinary sx return 02/21, recultured showing coag neg staph not saprophytic, no history of staph UTI completed course of clindamycin - Vaginal itching/burning and was treated with clotrimazole x 7 days and finished treatment 02/21 - No current urinary symptoms (3) Diabetes mellitus: Plan: Patient with type 2 diabetes, well controlled, long-term use of insulin. Last hemoglobin A1c=5.6 on 05/23/20. Patient follows with Endocrinology/Diabetes education. Last seen on 01/04/21. - Continue Lantus while here, Tresiba as outpt - ISS - Goal blood sugar 100 - 140 - Recommend annual A1c monitoring - Is on hydrocortisone BID for suspected adrenal insufficiency - endocrinology questions the validity of ACTH deficiency diagnosis and plan to repeat testing to confirm diagnosis as outpatient - Follow up with lead material handler outpatient as instructed (4) Seizure: Plan: Seizure disorder: Patient with history of seizure. She follows with neurology, last seen on 10/30/20 - follows for mixed tremor as well as dyskinesia and seizure history, parkinsonism. EEG completed in May 2018 revealed a generalized spike and slow wave abnormality consistent with an underlying generalized seizure disorder. Patient had an MRI brain completed in October 2017 which was unremarkable. Patient failed VNS placement in the past, device was explanted. Presently on topiramate, Trileptal and Keppra. 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 This has been discussed by the PCP. Target process complete and awaiting bed availability. Is stable for D/C pending arrangements. Multiple referrals placed and awaiting determination. Updated at bedside Admission and Anticipated Discharge Date Admission Date: January 31, 2021 Subjective Reports no complaints today. She continues request [facility] even after explaining the goal is long-term placement and supports long-term placement but this is not acute rehab at [facility]. did state he will take her home if they can have in-home caregivers which is currently not of benefit supplied by her care insurance pt reqests to be started on lasix po says this was omitted from [facility] Review of Systems Review of Systems: Mild distress and fatigue no headache, no visual changes no speech or swallowing issues no chest pain, pressure or palpitations no shortness of breath, cough or wheezes no abdominal pain, nausea or vomiting, diarrhea associated with lactulose therapy no dysuria, hematuria or frequency no focal joint pain or swelling no back pain, CVA tenderness or radicular pain no bruising, bleeding or rashes no focal signs of weakness or numbness or altered sensation has facial tremor consistent with tardive dyskinesia from psychiatric medications no complaints of anxiety or depression.. Physical Exam Physical Exam: The patient appeared well Vital signs as documented. Lungs are clear to auscultation and appear unlabored Cardiac exam, Rhythm is regular.. No murmurs, rubs or gallops. Abdominal exam reveals normal bowel sounds, soft non tender, no masses Extremities are nonedematous and both pedal pulses are normal. Neurologic exam is alert and oriented, no focal loss of strength or sensation Skin is without bruises or rashes Psychologically is without concerns for anxiety or depression. Results & Data Results & Data ([facility]) Vital Signs (Past 12 Hours) Vital Signs Temp Pulse Resp BP Pulse Ox 03/14/21 15:05 98.4 F 75 18 131/77 99 PG Care Time/CCT Total # of Minutes Spent Total Time Spent with Patient: Total time spent is greater than 50% in coordination of care (as documented) at patient's floor/unit and/or counseling patient: Coding Level of Care Code 21599 Subseq Hosp Care Lvl 1 Diagnoses Cirrhosis K74.60 Acute UTI N39.0 Diabetes mellitus E11.9 Seizure R56.9 Myoclonic seizure G40.409 Hyperammonemia E72.20 Parkinsonism G20
[2021-03-14] MEDS: [UNRECOGNIZED DRUG - REMARK] SQ SCH (21:49)
[2021-03-14] MEDS: MELATONIN 3 MG TAB PO SCH (21:51)
[2021-03-14] MEDS: FAMOTIDINE 20 MG TAB PO SCH (21:51)
[2021-03-15] MEDS: LEVOTHYROXINE SODIUM 50 MCG TABLET PO SCH (05:31)
[2021-03-15] MEDS: HYDROCORTISONE 10 MG TAB PO SCH ×2 (08:10→14:44)
[2021-03-15] MEDS: OXcarbazepine 150 MG TABLET PO SCH ×2 (08:10→20:25)
[2021-03-15] MEDS: levETIRAcetam 500 MG TAB PO SCH ×2 (08:10→20:26)
[2021-03-15] MEDS: BENZTROPINE MESYLATE 1 MG TAB PO SCH ×3 (08:10→20:26)
[2021-03-15] MEDS: LACTULOSE SYRUP 20 GM/30 ML UDC PO SCH ×3 (08:11→17:44)
[2021-03-15] MEDS: FEXOFENADINE 60 MG TAB PO SCH (08:11)
[2021-03-15] MEDS: PRAVASTATIN SOD 20 MG TAB PO SCH (08:11)
[2021-03-15] MEDS: TOPIRAMATE 100 MG TAB PO SCH ×2 (08:11→20:28)
[2021-03-15] MEDS: rOPINIRole HCL 0.25 MG TABLET PO SCH ×2 (08:11→20:26)
[2021-03-15] MEDS: DICLOFENAC SOD 1% GEL 100 GM TUBE EXT SCH ×4 (08:11→20:27)
[2021-03-15] MEDS: FUROSEMIDE 20 MG TAB PO SCH (08:11)
[2021-03-15] MEDS: ESCITALOPRAM OXALATE 20 MG TAB PO SCH (08:11)
[2021-03-15] MEDS: rifAXIMin 550 MG TABLET PO SCH ×2 (08:11→20:25)
[2021-03-15] MEDS: MAGNESIUM OXIDE 400 MG TAB PO SCH ×2 (08:11→20:25)
[2021-03-15] MEDS: INSULIN ASPART PER UNIT SC SCH ×4 (08:36→20:51)
[2021-03-15] MEDS: INSULIN GLARGINE SOLOSTAR 100 UNITS/ML 3 ML PEN SC SCH (08:39)
--- NOTE | 2021-03-15 17:58 | Hospitalist Progress Note ---
Date of Service March 15, 2021 Assessment & Plan (1) Cirrhosis: Plan: No new issues of been occurring with this patient over the last days as we are waiting for placement. Cirrhosis secondary to STEVE w/ portal hypertension. Patient follows with gastroenterology, last seen by Dr. Toledo on 10/11/20. Patient had an EGD in June 2020 which showed no varices and mild portal-hypertensive gastropathy.HCV screening has been completed and is negative. AFP on 03/09/2019 = 2.6. INR =1.3. Elevation of AP and Tbili comparable to prior levels. - LFTs stable - Initially hospitalized w/ hepatic encephalopathy - at baseline mentation currently - Continue Lactulose, Rifaximin 550 mg p.o. twice daily, Titrate to 2-3 soft BMs/day - Pepcid 20mg po qHS - Last ammonia in normal range for patient - checked due to tiredness, otherwise her mentation has been baseline x multiple weeks - Patient to have US in 1 year for HCC surveillance and EGD in 3 years for variceal screening. (2) Acute UTI: Plan: - Urine cx with Proteus resistance to FQs on 01/31, s/p treatment with Ceftriaxone - Urinary sx return 02/21, recultured showing coag neg staph not saprophytic, no history of staph UTI completed course of clindamycin - Vaginal itching/burning and was treated with clotrimazole x 7 days and finished treatment 02/21 - No current urinary symptoms (3) Diabetes mellitus: Plan: Patient with type 2 diabetes, well controlled, long-term use of insulin. Last hemoglobin A1c=5.6 on 05/23/20. Patient follows with Endocrinology/Diabetes education. Last seen on 01/04/21. - Continue Lantus while here, Tresiba as outpt - ISS - Goal blood sugar 100 - 140 - Recommend annual A1c monitoring - Is on hydrocortisone BID for suspected adrenal insufficiency - endocrinology questions the validity of ACTH deficiency diagnosis and plan to repeat testing to confirm diagnosis as outpatient - Follow up with clinical nurse educator outpatient as instructed (4) Seizure: Plan: Seizure disorder: Patient with history of seizure. She follows with neurology, last seen on 10/30/20 - follows for mixed tremor as well as dyskinesia and seizure history, parkinsonism. EEG completed in May 2018 revealed a generalized spike and slow wave abnormality consistent with an underlying generalized seizure disorder. Patient had an MRI brain completed in October 2017 which was unremarkable. Patient failed VNS placement in the past, device was explanted. Presently on topiramate, Trileptal and Keppra. 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 This has been discussed by the PCP. Target process complete and awaiting bed availability. Is stable for D/C pending arrangements. Multiple referrals placed and awaiting determination. Updated at bedside Admission and Anticipated Discharge Date Admission Date: January 31, 2021 Subjective Reports no complaints today. She continues request [facility] even after explaining the goal is long-term placement and supports long-term placement but this is not acute rehab at [facility]. did state he will take her home if they can have in-home caregivers which is currently not of benefit supplied by her care insurance pt reqests to be started on lasix po says this was omitted from [facility] Review of Systems Review of Systems: Mild distress and fatigue no headache, no visual changes no speech or swallowing issues no chest pain, pressure or palpitations no shortness of breath, cough or wheezes no abdominal pain, nausea or vomiting, diarrhea associated with lactulose therapy no dysuria, hematuria or frequency no focal joint pain or swelling no back pain, CVA tenderness or radicular pain no bruising, bleeding or rashes no focal signs of weakness or numbness or altered sensation has facial tremor consistent with tardive dyskinesia from psychiatric medications no complaints of anxiety or depression.. Physical Exam Physical Exam: The patient appeared well Vital signs as documented. Lungs are clear to auscultation and appear unlabored Cardiac exam, Rhythm is regular.. No murmurs, rubs or gallops. Abdominal exam reveals normal bowel sounds, soft non tender, no masses Extremities are nonedematous and both pedal pulses are normal. Neurologic exam is alert and oriented, no focal loss of strength or sensation Skin is without bruises or rashes Psychologically is without concerns for anxiety or depression. Results & Data Results & Data ([facility]) Vital Signs (Past 12 Hours) Vital Signs Temp Pulse Resp BP Pulse Ox 03/15/21 15:25 98.4 F 80 18 112/72 98 03/15/21 07:00 98.6 F 63 18 111/70 98 PG Care Time/CCT Total # of Minutes Spent Total Time Spent with Patient: Total time spent is greater than 50% in coordination of care (as documented) at patient's floor/unit and/or counseling patient: Coding Level of Care Code 81050 Subseq Hosp Care Lvl 1 Diagnoses Cirrhosis K74.60 Acute UTI N39.0 Diabetes mellitus E11.9 Seizure R56.9 Myoclonic seizure G40.409 Hyperammonemia E72.20 Parkinsonism G20
[2021-03-15] MEDS: FAMOTIDINE 20 MG TAB PO SCH (20:25)
[2021-03-15] MEDS: [UNRECOGNIZED DRUG - REMARK] SQ SCH (20:27)
[2021-03-15] MEDS: MELATONIN 3 MG TAB PO SCH (20:27)
[2021-03-16] MEDS: LEVOTHYROXINE SODIUM 50 MCG TABLET PO SCH (05:43)
[2021-03-16] MEDS: INSULIN ASPART PER UNIT SC SCH ×4 (08:48→20:51)
[2021-03-16] MEDS: HYDROCORTISONE 10 MG TAB PO SCH ×2 (08:51→15:26)
[2021-03-16] MEDS: BENZTROPINE MESYLATE 1 MG TAB PO SCH ×3 (08:51→20:57)
[2021-03-16] MEDS: FUROSEMIDE 20 MG TAB PO SCH (08:51)
[2021-03-16] MEDS: DICLOFENAC SOD 1% GEL 100 GM TUBE EXT SCH ×4 (08:51→20:58)
[2021-03-16] MEDS: ESCITALOPRAM OXALATE 20 MG TAB PO SCH (08:51)
[2021-03-16] MEDS: FEXOFENADINE 60 MG TAB PO SCH (08:51)
[2021-03-16] MEDS: rifAXIMin 550 MG TABLET PO SCH ×2 (08:52→20:55)
[2021-03-16] MEDS: TOPIRAMATE 100 MG TAB PO SCH ×2 (08:52→20:56)
[2021-03-16] MEDS: OXcarbazepine 150 MG TABLET PO SCH ×2 (08:52→20:55)
[2021-03-16] MEDS: LACTULOSE SYRUP 20 GM/30 ML UDC PO SCH ×3 (08:52→17:57)
[2021-03-16] MEDS: PRAVASTATIN SOD 20 MG TAB PO SCH (08:52)
[2021-03-16] MEDS: rOPINIRole HCL 0.25 MG TABLET PO SCH ×2 (08:52→20:55)
[2021-03-16] MEDS: MAGNESIUM OXIDE 400 MG TAB PO SCH ×2 (08:52→20:56)
[2021-03-16] MEDS: levETIRAcetam 500 MG TAB PO SCH ×2 (08:52→20:56)
[2021-03-16] MEDS: INSULIN GLARGINE SOLOSTAR 100 UNITS/ML 3 ML PEN SC SCH (09:53)
--- NOTE | 2021-03-16 13:50 | Hospitalist Progress Note ---
Date of Service March 16, 2021 Assessment & Plan (1) Cirrhosis: Plan: No new issues of been occurring with this patient over the last days as we are waiting for placement. Cirrhosis secondary to STEVE w/ portal hypertension. Patient follows with gastroenterology, last seen by Dr. Toledo on 10/11/20. Patient had an EGD in June 2020 which showed no varices and mild portal-hypertensive gastropathy.HCV screening has been completed and is negative. AFP on 03/09/2019 = 2.6. INR =1.3. Elevation of AP and Tbili comparable to prior levels. - LFTs stable - Initially hospitalized w/ hepatic encephalopathy - at baseline mentation currently - Continue Lactulose, Rifaximin 550 mg p.o. twice daily, Titrate to 2-3 soft BMs/day - Pepcid 20mg po qHS - Last ammonia in normal range for patient - checked due to tiredness, otherwise her mentation has been baseline x multiple weeks - Patient to have US in 1 year for HCC surveillance and EGD in 3 years for variceal screening. (2) Acute UTI: Plan: - Urine cx with Proteus resistance to FQs on 01/31, s/p treatment with Ceftriaxone - Urinary sx return 02/21, recultured showing coag neg staph not saprophytic, no history of staph UTI completed course of clindamycin - Vaginal itching/burning and was treated with clotrimazole x 7 days and finished treatment 02/21 - No current urinary symptoms (3) Diabetes mellitus: Plan: Patient with type 2 diabetes, well controlled, long-term use of insulin. Last hemoglobin A1c=5.6 on 05/23/20. Patient follows with Endocrinology/Diabetes education. Last seen on 01/04/21. - Continue Lantus while here, Tresiba as outpt - ISS - Goal blood sugar 100 - 140 - Recommend annual A1c monitoring - Is on hydrocortisone BID for suspected adrenal insufficiency - endocrinology questions the validity of ACTH deficiency diagnosis and plan to repeat testing to confirm diagnosis as outpatient - Follow up with music educator outpatient as instructed (4) Seizure: Plan: Seizure disorder: Patient with history of seizure. She follows with neurology, last seen on 10/30/20 - follows for mixed tremor as well as dyskinesia and seizure history, parkinsonism. EEG completed in May 2018 revealed a generalized spike and slow wave abnormality consistent with an underlying generalized seizure disorder. Patient had an MRI brain completed in October 2017 which was unremarkable. Patient failed VNS placement in the past, device was explanted. Presently on topiramate, Trileptal and Keppra. 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 This has been discussed by the PCP. Target process complete and awaiting bed availability. Is stable for D/C pending arrangements. Multiple referrals placed and awaiting determination. Updated at bedside Admission and Anticipated Discharge Date Admission Date: January 31, 2021 Subjective Reports no complaints today. She continues request [facility] even after explaining the goal is long-term placement and supports long-term placement but this is not acute rehab at [facility]. did state he will take her home if they can have in-home caregivers which is currently not of benefit supplied by her care insurance pt reqests to be started on lasix po says this was omitted from [facility] Review of Systems Review of Systems: Mild distress and fatigue no headache, no visual changes no speech or swallowing issues no chest pain, pressure or palpitations no shortness of breath, cough or wheezes no abdominal pain, nausea or vomiting, diarrhea associated with lactulose therapy no dysuria, hematuria or frequency no focal joint pain or swelling no back pain, CVA tenderness or radicular pain no bruising, bleeding or rashes no focal signs of weakness or numbness or altered sensation has facial tremor consistent with tardive dyskinesia from psychiatric medications no complaints of anxiety or depression.. Physical Exam Physical Exam: The patient appeared well Vital signs as documented. Lungs are clear to auscultation and appear unlabored Cardiac exam, Rhythm is regular.. No murmurs, rubs or gallops. Abdominal exam reveals normal bowel sounds, soft non tender, no masses Extremities are nonedematous and both pedal pulses are normal. Neurologic exam is alert and oriented, no focal loss of strength or sensation Skin is without bruises or rashes Psychologically is without concerns for anxiety or depression. Results & Data Results & Data ([facility]) Vital Signs (Past 12 Hours) Vital Signs Temp Pulse Resp BP Pulse Ox 03/16/21 06:50 98.4 F 59 L 20 103/66 98 PG Care Time/CCT Total # of Minutes Spent Total Time Spent with Patient: Total time spent is greater than 50% in coordination of care (as documented) at patient's floor/unit and/or counseling patient: Coding Level of Care Code 32293 Subseq Hosp Care Lvl 1 Diagnoses Cirrhosis K74.60 Acute UTI N39.0 Diabetes mellitus E11.9 Seizure R56.9 Myoclonic seizure G40.409 Hyperammonemia E72.20 Parkinsonism G20
[2021-03-16] MEDS: PROMETHAZINE HCL 25 MG TAB PO PRN (15:10)
[2021-03-16] MEDS: MELATONIN 3 MG TAB PO SCH (20:57)
[2021-03-16] MEDS: FAMOTIDINE 20 MG TAB PO SCH (20:57)
[2021-03-16] MEDS: [UNRECOGNIZED DRUG - REMARK] SQ SCH (21:03)
[2021-03-17] MEDS: LEVOTHYROXINE SODIUM 50 MCG TABLET PO SCH (05:40)
[2021-03-17] MEDS: BENZTROPINE MESYLATE 1 MG TAB PO SCH ×3 (08:07→20:17)
[2021-03-17] MEDS: DICLOFENAC SOD 1% GEL 100 GM TUBE EXT SCH ×4 (08:07→20:17)
[2021-03-17] MEDS: rifAXIMin 550 MG TABLET PO SCH ×2 (08:07→20:17)
[2021-03-17] MEDS: LACTULOSE SYRUP 20 GM/30 ML UDC PO SCH ×3 (08:07→18:04)
[2021-03-17] MEDS: rOPINIRole HCL 0.25 MG TABLET PO SCH ×2 (08:07→20:17)
[2021-03-17] MEDS: HYDROCORTISONE 10 MG TAB PO SCH ×2 (08:07→18:04)
[2021-03-17] MEDS: OXcarbazepine 150 MG TABLET PO SCH ×2 (08:08→20:17)
[2021-03-17] MEDS: FUROSEMIDE 20 MG TAB PO SCH (08:08)
[2021-03-17] MEDS: MAGNESIUM OXIDE 400 MG TAB PO SCH ×2 (08:08→20:18)
[2021-03-17] MEDS: levETIRAcetam 500 MG TAB PO SCH ×2 (08:08→20:18)
[2021-03-17] MEDS: PRAVASTATIN SOD 20 MG TAB PO SCH (08:08)
[2021-03-17] MEDS: TOPIRAMATE 100 MG TAB PO SCH ×2 (08:08→20:18)
[2021-03-17] MEDS: FEXOFENADINE 60 MG TAB PO SCH (08:08)
[2021-03-17] MEDS: ESCITALOPRAM OXALATE 20 MG TAB PO SCH (08:08)
[2021-03-17] MEDS: INSULIN GLARGINE SOLOSTAR 100 UNITS/ML 3 ML PEN SC SCH (08:55)
[2021-03-17] MEDS: INSULIN ASPART PER UNIT SC SCH ×4 (08:56→20:49)
[2021-03-17] MEDS: FAMOTIDINE 20 MG TAB PO SCH (20:17)
[2021-03-17] MEDS: MELATONIN 3 MG TAB PO SCH (20:18)
[2021-03-17] MEDS: [UNRECOGNIZED DRUG - REMARK] SQ SCH (20:21)
--- NOTE | 2021-03-17 22:29 | Hospitalist Progress Note ---
Date of Service March 17, 2021 Assessment & Plan (1) Cirrhosis: Plan: No new issues of been occurring with this patient over the last days as we are waiting for placement. Cirrhosis secondary to STEVE w/ portal hypertension. Patient follows with gastroenterology, last seen by Dr. Toledo on 10/11/20. Patient had an EGD in June 2020 which showed no varices and mild portal-hypertensive gastropathy.HCV screening has been completed and is negative. AFP on 03/09/2019 = 2.6. INR =1.3. Elevation of AP and Tbili comparable to prior levels. - LFTs stable - Initially hospitalized w/ hepatic encephalopathy - at baseline mentation currently - Continue Lactulose, Rifaximin 550 mg p.o. twice daily, Titrate to 2-3 soft BMs/day - Pepcid 20mg po qHS - Last ammonia in normal range for patient - checked due to tiredness, otherwise her mentation has been baseline x multiple weeks - Patient to have US in 1 year for HCC surveillance and EGD in 3 years for variceal screening. (2) Acute UTI: Plan: - Urine cx with Proteus resistance to FQs on 01/31, s/p treatment with Ceftriaxone - Urinary sx return 02/21, recultured showing coag neg staph not saprophytic, no history of staph UTI completed course of clindamycin - Vaginal itching/burning and was treated with clotrimazole x 7 days and finished treatment 02/21 - No current urinary symptoms (3) Diabetes mellitus: Plan: Patient with type 2 diabetes, well controlled, long-term use of insulin. Last hemoglobin A1c=5.6 on 05/23/20. Patient follows with Endocrinology/Diabetes education. Last seen on 01/04/21. - Continue Lantus while here, Tresiba as outpt - ISS - Goal blood sugar 100 - 140 - Recommend annual A1c monitoring - Is on hydrocortisone BID for suspected adrenal insufficiency - endocrinology questions the validity of ACTH deficiency diagnosis and plan to repeat testing to confirm diagnosis as outpatient - Follow up with tobacco prevention health educator outpatient as instructed (4) Seizure: Plan: Seizure disorder: Patient with history of seizure. She follows with neurology, last seen on 10/30/20 - follows for mixed tremor as well as dyskinesia and seizure history, parkinsonism. EEG completed in May 2018 revealed a generalized spike and slow wave abnormality consistent with an underlying generalized seizure disorder. Patient had an MRI brain completed in October 2017 which was unremarkable. Patient failed VNS placement in the past, device was explanted. Presently on topiramate, Trileptal and Keppra. 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 This has been discussed by the PCP. Target process complete and awaiting bed availability. Is stable for D/C pending arrangements. Multiple referrals placed and awaiting determination. Updated at bedside Admission and Anticipated Discharge Date Admission Date: January 31, 2021 Subjective Reports no new complaints today. She continues to request [facility] even after explaining the goal is long-term placement and supports long-term placement but this is not acute rehab at [facility]. did state he will take her home if they can have in-home caregivers which is currently not of benefit supplied by her care insurance Review of Systems Review of Systems: All systems reviewed & are unremarkable except as noted in HPI & below Physical Exam Physical Exam: The patient appeared well Vital signs as documented. Lungs are clear to auscultation and appear unlabored Cardiac exam, Rhythm is regular.. No murmurs, rubs or gallops. Abdominal exam reveals normal bowel sounds, soft non tender, no masses Extremities are nonedematous and both pedal pulses are normal. Neurologic exam is alert and oriented, no focal loss of strength or sensation Skin is without bruises or rashes Psychologically is without concerns for anxiety or depression. Results & Data Results & Data ([facility]) Vital Signs (Past 12 Hours) Vital Signs Temp Pulse Resp BP Pulse Ox 03/17/21 22:23 36.7 C 81 16 121/71 95 03/17/21 15:25 36.8 C 70 16 128/70 98 PG Care Time/CCT Total # of Minutes Spent Total Time Spent with Patient: Total time spent is greater than 50% in coordination of care (as documented) at patient's floor/unit and/or counseling patient: Coding Level of Care Code 62981 Subseq Hosp Care Lvl 1 Diagnoses Cirrhosis K74.60 Acute UTI N39.0 Diabetes mellitus E11.9 Seizure R56.9 Myoclonic seizure G40.409 Hyperammonemia E72.20 Parkinsonism G20
[2021-03-18] MEDS: LEVOTHYROXINE SODIUM 50 MCG TABLET PO SCH (05:17)
[2021-03-18] MEDS: INSULIN GLARGINE SOLOSTAR 100 UNITS/ML 3 ML PEN SC SCH (09:12)
[2021-03-18] MEDS: DICLOFENAC SOD 1% GEL 100 GM TUBE EXT SCH ×4 (09:12→20:31)
[2021-03-18] MEDS: FEXOFENADINE 60 MG TAB PO SCH (09:13)
[2021-03-18] MEDS: rOPINIRole HCL 0.25 MG TABLET PO SCH ×2 (09:13→20:32)
[2021-03-18] MEDS: FUROSEMIDE 20 MG TAB PO SCH (09:13)
[2021-03-18] MEDS: ESCITALOPRAM OXALATE 20 MG TAB PO SCH (09:13)
[2021-03-18] MEDS: BENZTROPINE MESYLATE 1 MG TAB PO SCH ×3 (09:13→20:32)
[2021-03-18] MEDS: HYDROCORTISONE 10 MG TAB PO SCH ×2 (09:13→13:38)
[2021-03-18] MEDS: rifAXIMin 550 MG TABLET PO SCH ×2 (09:14→20:32)
[2021-03-18] MEDS: LACTULOSE SYRUP 20 GM/30 ML UDC PO SCH ×3 (09:14→17:57)
[2021-03-18] MEDS: TOPIRAMATE 100 MG TAB PO SCH ×2 (09:14→20:32)
[2021-03-18] MEDS: OXcarbazepine 150 MG TABLET PO SCH ×2 (09:14→20:31)
[2021-03-18] MEDS: levETIRAcetam 500 MG TAB PO SCH ×2 (09:14→20:31)
[2021-03-18] MEDS: PRAVASTATIN SOD 20 MG TAB PO SCH (09:14)
[2021-03-18] MEDS: MAGNESIUM OXIDE 400 MG TAB PO SCH ×2 (09:14→20:31)
[2021-03-18] MEDS: INSULIN ASPART PER UNIT SC SCH ×4 (09:15→21:12)
--- NOTE | 2021-03-18 13:24 | Hospitalist Progress Note ---
Date of Service March 18, 2021 Assessment & Plan (1) Cirrhosis: Plan: No new issues of been occurring with this patient over the last days as we are waiting for placement. Cirrhosis secondary to STEVE w/ portal hypertension. Patient follows with gastroenterology, last seen by Dr. Toledo on 10/11/20. Patient had an EGD in June 2020 which showed no varices and mild portal-hypertensive gastropathy.HCV screening has been completed and is negative. AFP on 03/09/2019 = 2.6. INR =1.3. Elevation of AP and Tbili comparable to prior levels. - LFTs stable - Initially hospitalized w/ hepatic encephalopathy - at baseline mentation currently - Continue Lactulose, Rifaximin 550 mg p.o. twice daily, Titrate to 2-3 soft BMs/day - Pepcid 20mg po qHS - Last ammonia 03/03 74 but in normal range for patient - checked due to tiredness, otherwise her mentation has been baseline x multiple weeks - Patient to have US in 1 year for HCC surveillance and EGD in 3 years for variceal screening. (2) Acute UTI: Plan: - Urine cx with Proteus resistance to FQs on 01/31, s/p treatment with Ceftriaxone - Urinary sx return 02/21, recultured showing coag neg staph not saprophytic, no history of staph UTI completed course of clindamycin - Vaginal itching/burning and was treated with clotrimazole x 7 days and finished treatment 02/21 - No current urinary symptoms (3) Diabetes mellitus: Plan: Patient with type 2 diabetes, well controlled, long-term use of insulin. Last hemoglobin A1c=5.6 on 05/23/20. Patient follows with Endocrinology/Diabetes education. Last seen on 01/04/21. - Continue Lantus while here, Tresiba as outpt - ISS - Goal blood sugar 100 - 140 - Recommend annual A1c monitoring - Is on hydrocortisone BID for suspected adrenal insufficiency - endocrinology questions the validity of ACTH deficiency diagnosis and plan to repeat testing to confirm diagnosis as outpatient - Follow up with director pediatric outpatient as instructed (4) Seizure: Plan: Seizure disorder: Patient with history of seizure. She follows with neurology, last seen on 10/30/20 - follows for mixed tremor as well as dyskinesia and seizure history, parkinsonism. EEG completed in May 2018 revealed a generalized spike and slow wave abnormality consistent with an underlying generalized seizure disorder. Patient had an MRI brain completed in October 2017 which was unremarkable. Patient failed VNS placement in the past, device was explanted. Presently on topiramate, Trileptal and Keppra. 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 This has been discussed by the PCP. Target process complete and awaiting bed availability. Is stable for D/C pending arrangements. Multiple referrals placed and awaiting determination. Admission and Anticipated Discharge Date Admission Date: January 31, 2021 Subjective No complaints today. intermodal truck driver placement beign arranged by CM, target process complete. Pt reports she would prefer to go home, will be coming by this afternoon. Would like to refer case at that time otherwise no other questions or concerns at time of bedside visit. Review of Systems Review of Systems: All systems reviewed & are unremarkable except as noted in Subjective Physical Exam Physical Exam: General: A&Ox3. NAD. Cooperative. HEENT: Atraumatic, normocephalic. Pulm: CTAB A&P. -wheezes, -rales, -rhonchi. Symmetrical chest rise. No increase work of breathing. No respiratory distress. Cardiac: RRR, -mrg. Radial pulses intact and symmetrical. Abdominal: Nontender, nondistended, soft. BS present. Extremities: No edema, moving all extremities equally Results & Data Results & Data ([facility]) Vital Signs (Past 12 Hours) Vital Signs Temp Pulse Resp BP Pulse Ox 03/18/21 06:44 36.7 C 57 L 18 129/75 100 PG Care Time/CCT Total # of Minutes Spent Total Time Spent with Patient: Total time spent is greater than 50% in coordination of care (as documented) at patient's floor/unit and/or counseling patient: Coding Level of Care Code 53709 Subseq Hosp Care Lvl 1 Diagnoses Cirrhosis K74.60 Acute UTI N39.0 Diabetes mellitus E11.9 Seizure R56.9 Myoclonic seizure G40.409 Hyperammonemia E72.20 Parkinsonism G20
[2021-03-18] MEDS: MELATONIN 3 MG TAB PO SCH (20:30)
[2021-03-18] MEDS: FAMOTIDINE 20 MG TAB PO SCH (20:32)
[2021-03-18] MEDS: [UNRECOGNIZED DRUG - REMARK] SQ SCH (20:33)
[2021-03-18] MEDS: PROMETHAZINE HCL 25 MG TAB PO PRN (22:08)
[2021-03-19] MEDS: LEVOTHYROXINE SODIUM 50 MCG TABLET PO SCH (05:49)
[2021-03-19] MEDS: ESCITALOPRAM OXALATE 20 MG TAB PO SCH (09:05)
[2021-03-19] MEDS: FEXOFENADINE 60 MG TAB PO SCH (09:06)
[2021-03-19] MEDS: OXcarbazepine 150 MG TABLET PO SCH ×2 (09:06→20:27)
[2021-03-19] MEDS: FUROSEMIDE 20 MG TAB PO SCH (09:07)
[2021-03-19] MEDS: PRAVASTATIN SOD 20 MG TAB PO SCH (09:07)
[2021-03-19] MEDS: TOPIRAMATE 100 MG TAB PO SCH ×2 (09:08→20:26)
[2021-03-19] MEDS: HYDROCORTISONE 10 MG TAB PO SCH ×2 (09:08→14:40)
[2021-03-19] MEDS: rOPINIRole HCL 0.25 MG TABLET PO SCH ×2 (09:08→20:27)
[2021-03-19] MEDS: rifAXIMin 550 MG TABLET PO SCH ×2 (09:08→20:28)
[2021-03-19] MEDS: BENZTROPINE MESYLATE 1 MG TAB PO SCH ×3 (09:09→20:27)
[2021-03-19] MEDS: levETIRAcetam 500 MG TAB PO SCH ×2 (09:09→20:28)
[2021-03-19] MEDS: MAGNESIUM OXIDE 400 MG TAB PO SCH ×2 (09:09→20:28)
[2021-03-19] MEDS: LACTULOSE SYRUP 20 GM/30 ML UDC PO SCH ×4 (09:10→18:05)
[2021-03-19] MEDS: DICLOFENAC SOD 1% GEL 100 GM TUBE EXT SCH ×4 (09:10→20:28)
[2021-03-19] MEDS: INSULIN GLARGINE SOLOSTAR 100 UNITS/ML 3 ML PEN SC SCH (09:11)
[2021-03-19] MEDS: INSULIN ASPART PER UNIT SC SCH ×4 (09:16→21:27)
--- NOTE | 2021-03-19 15:44 | Hospitalist Progress Note ---
Date of Service March 19, 2021 Assessment & Plan (1) Cirrhosis: Plan: No new issues of been occurring with this patient over the last days as we are waiting for placement. Cirrhosis secondary to STEVE w/ portal hypertension. Patient follows with gastroenterology, last seen by Dr. Toledo on 10/11/20. Patient had an EGD in June 2020 which showed no varices and mild portal-hypertensive gastropathy.HCV screening has been completed and is negative. AFP on 03/09/2019 = 2.6. INR =1.3. Elevation of AP and Tbili comparable to prior levels. - LFTs stable - Initially hospitalized w/ hepatic encephalopathy - at baseline mentation currently - Continue Lactulose, Rifaximin 550 mg p.o. twice daily--> patient averaging 4BM's/day - Pepcid 20mg po qHS - Last ammonia 03/03 74 but in normal range for patient - checked due to tiredness, otherwise her mentation has been baseline x multiple weeks - Patient to have US in 1 year for HCC surveillance and EGD in 3 years for variceal screening. (2) Acute UTI: Plan: - Urine cx with Proteus resistance to FQs on 01/31, s/p treatment with Ceftriaxone - Urinary sx return 02/21, recultured showing coag neg staph not saprophytic, no history of staph UTI completed course of clindamycin - Vaginal itching/burning and was treated with clotrimazole x 7 days and finished treatment 02/21 - No current urinary symptoms (3) Diabetes mellitus: Plan: Patient with type 2 diabetes, well controlled, long-term use of insulin. Last hemoglobin A1c=5.6 on 05/23/20. Patient follows with Endocrinology/Diabetes education. Last seen on 01/04/21. - Continue Lantus while here, Tresiba as outpt - ISS - Goal blood sugar 100 - 140 - Recommend annual A1c monitoring - Is on hydrocortisone BID for suspected adrenal insufficiency - endocrinology questions the validity of ACTH deficiency diagnosis and plan to repeat testing to confirm diagnosis as outpatient - Follow up with wheel roller outpatient as instructed (4) Seizure: Plan: Seizure disorder: Patient with history of seizure. She follows with neurology, last seen on 10/30/20 - follows for mixed tremor as well as dyskinesia and seizure history, parkinsonism. EEG completed in May 2018 revealed a generalized spike and slow wave abnormality consistent with an underlying generalized seizure disorder. Patient had an MRI brain completed in October 2017 which was unremarkable. Patient failed VNS placement in the past, device was explanted. Presently on topiramate, Trileptal and Keppra. 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 This has been discussed by the PCP. Target process complete and awaiting bed availability. Is stable for D/C pending arrangements. Multiple referrals placed and awaiting determination. 03/19, patient requesting discharge to home but this has been discouraged as safety at home has been a concern. reports he believes he can care for her now with added support but patient's waiver services have been revoked since we have been pursuing placement to long-term care. With lack of outpatient staff available, she will not receive the care needed. Admission and Anticipated Discharge Date Admission Date: January 31, 2021 Subjective Patient seen on daily rounds today. Frustrated that she remains in the hospital. Requesting to go home. She resides with her who has health issues of his own and has been unable to provide care for Marcelle. Patient reports that he can care for her now that he is completing his radiation therapy for his prostate CA In talking with case management, patient has remained in the hospital for so long and since we have been pursuing placement, her waiver services have been re voked. She has no added support at home and given lack of staff available, the services that she would require cannot be provided at home. reports that he cannot care for her independently. Review of Systems Review of Systems: All systems reviewed and are unremarkable except as noted in HPI and below Denies fevers, chills, headache, nasal congestion, sore throat, cough, chest pain, shortness of breath, palpitations, orthopnea, PND, abdominal pain, nausea, vomiting, diarrhea, constipation, dysuria, hematuria, frequency, back pain, joint pain or swelling, easy bruising or bleeding, skin lesions or rashes. Physical Exam Physical Exam: General: Resting comfortably in her hospital bed. Head meghan evident. NAD. HEENT: Head is AT/NC buccal mucosa is moist and pink Neck: No JVD. Negative hepatojugular reflex Cardiac: RRR with 2/6 GIOVANNI Lungs: CTA without W/R/R Abdomen: Normoactive X4. Soft and nontender in all quadrants. Extremities: No peripheral clubbing cyanosis or edema Neuro: A&O X4 cranial nerves II through XII are grossly intact no focal neuro deficits Skin: No obvious skin lesions or rashes Psych: Appropriate affect pleasant and cooperative Results & Data Results & Data ([facility]) Vital Signs (Past 12 Hours) Vital Signs Temp Pulse Resp BP Pulse Ox 03/19/21 15:10 36.3 C L 61 18 105/68 97 03/19/21 06:46 36.4 C L 60 18 109/65 98 Laboratory Results no lab data PG Care Time/CCT Total # of Minutes Spent Total Time Spent with Patient: Total time spent is greater than 50% in coordination of care (as documented) at patient's floor/unit and/or counseling patient: Coding Level of Care Code 07203 Subseq Hosp Care Lvl 1 Diagnoses Cirrhosis K74.60 Acute UTI N39.0 Diabetes mellitus E11.9 Seizure R56.9 Myoclonic seizure G40.409 Hyperammonemia E72.20 Parkinsonism G20
[2021-03-19] MEDS: MELATONIN 3 MG TAB PO SCH (20:26)
[2021-03-19] MEDS: FAMOTIDINE 20 MG TAB PO SCH (20:28)
[2021-03-19] MEDS: [UNRECOGNIZED DRUG - REMARK] SQ SCH (20:30)
[2021-03-20] MEDS: LEVOTHYROXINE SODIUM 50 MCG TABLET PO SCH (05:33)
[2021-03-20] MEDS: LACTULOSE SYRUP 20 GM/30 ML UDC PO SCH ×4 (09:00→17:54)
[2021-03-20] MEDS: rOPINIRole HCL 0.25 MG TABLET PO SCH ×2 (09:00→21:10)
[2021-03-20] MEDS: levETIRAcetam 500 MG TAB PO SCH ×2 (09:01→21:10)
[2021-03-20] MEDS: MAGNESIUM OXIDE 400 MG TAB PO SCH ×2 (09:01→21:11)
[2021-03-20] MEDS: HYDROCORTISONE 10 MG TAB PO SCH ×2 (09:01→15:03)
[2021-03-20] MEDS: BENZTROPINE MESYLATE 1 MG TAB PO SCH ×3 (09:01→21:11)
[2021-03-20] MEDS: FUROSEMIDE 20 MG TAB PO SCH (09:02)
[2021-03-20] MEDS: ESCITALOPRAM OXALATE 20 MG TAB PO SCH (09:02)
[2021-03-20] MEDS: FEXOFENADINE 60 MG TAB PO SCH (09:02)
[2021-03-20] MEDS: OXcarbazepine 150 MG TABLET PO SCH ×2 (09:02→21:11)
[2021-03-20] MEDS: rifAXIMin 550 MG TABLET PO SCH ×2 (09:03→21:10)
[2021-03-20] MEDS: PRAVASTATIN SOD 20 MG TAB PO SCH (09:03)
[2021-03-20] MEDS: DICLOFENAC SOD 1% GEL 100 GM TUBE EXT SCH ×4 (09:03→21:12)
[2021-03-20] MEDS: TOPIRAMATE 100 MG TAB PO SCH ×2 (09:03→21:10)
[2021-03-20] MEDS: INSULIN GLARGINE SOLOSTAR 100 UNITS/ML 3 ML PEN SC SCH (09:04)
[2021-03-20] MEDS: INSULIN ASPART PER UNIT SC SCH ×4 (09:08→21:12)
--- NOTE | 2021-03-20 14:19 | Hospitalist Progress Note ---
Date of Service March 20, 2021 Assessment & Plan (1) Cirrhosis: Plan: No new issues of been occurring with this patient over the last days as we are waiting for placement. Cirrhosis secondary to STEVE w/ portal hypertension. Patient follows with gastroenterology, last seen by Dr. Toledo on 10/11/20. Patient had an EGD in June 2020 which showed no varices and mild portal-hypertensive gastropathy.HCV screening has been completed and is negative. AFP on 03/09/2019 = 2.6. INR =1.3. Elevation of AP and Tbili comparable to prior levels. - LFTs stable - Initially hospitalized w/ hepatic encephalopathy - at baseline mentation currently - Continue Lactulose, Rifaximin 550 mg p.o. twice daily--> patient averaging 4BM's/day - Pepcid 20mg po qHS - Last ammonia 03/03 74 but in normal range for patient - checked due to tiredness, otherwise her mentation has been baseline x multiple weeks - Patient to have US in 1 year for HCC surveillance and EGD in 3 years for variceal screening. (2) Acute UTI: Plan: - Urine cx with Proteus resistance to FQs on 01/31, s/p treatment with Ceftriaxone - Urinary sx return 02/21, recultured showing coag neg staph not saprophytic, no history of staph UTI completed course of clindamycin - Vaginal itching/burning and was treated with clotrimazole x 7 days and finished treatment 02/21 - No current urinary symptoms (3) Diabetes mellitus: Plan: Patient with type 2 diabetes, well controlled, long-term use of insulin. Last hemoglobin A1c=5.6 on 05/23/20. Patient follows with Endocrinology/Diabetes education. Last seen on 01/04/21. - Continue Lantus while here, Tresiba as outpt - ISS - Goal blood sugar 100 - 140 - Recommend annual A1c monitoring - Is on hydrocortisone BID for suspected adrenal insufficiency - endocrinology questions the validity of ACTH deficiency diagnosis and plan to repeat testing to confirm diagnosis as outpatient - Follow up with staff educator outpatient as instructed (4) Seizure: Plan: Seizure disorder: Patient with history of seizure. She follows with neurology, last seen on 10/30/20 - follows for mixed tremor as well as dyskinesia and seizure history, parkinsonism. EEG completed in May 2018 revealed a generalized spike and slow wave abnormality consistent with an underlying generalized seizure disorder. Patient had an MRI brain completed in October 2017 which was unremarkable. Patient failed VNS placement in the past, device was explanted. Presently on topiramate, Trileptal and Keppra. 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 Patient gets 24 hours care from her (who is aging and has health issues of his own). This has been discussed by the PCP as well. Target process complete and awaiting bed availability. Is stable for D/C pending arrangements. Multiple referrals placed and awaiting determination. 03/19, patient requesting discharge to home but this has been discouraged as safety at home has been a concern. reports he believes he can care for her now with added support but patient's waiver services have been revoked since we have been pursuing placement to long-term care. With lack of outpatient staff available, she will not receive the care needed and home is not a safe discharge plan. Case mgmt working on this. Admission and Anticipated Discharge Date Admission Date: January 31, 2021 Subjective Patient seen on daily rounds today. Frustrated over still being in the hospital. Adamant that she is going home. Her is her primary foster care therapist and is willing for her to be home IN THE EVENT THAT SHE CAN GET EXTRA SUPPORT AND CARE AT HOME. She was with the waiver program but that has since been revoked while awaiting placement (which is what was requested by patient and spouse initially). Denies F/C, CP, SOB, abd pain, N/V. Review of Systems Review of Systems: All systems reviewed and are unremarkable except as noted in HPI and below Denies fevers, chills, headache, nasal congestion, sore throat, cough, chest pain, shortness of breath, palpitations, orthopnea, PND, abdominal pain, nausea, vomiting, diarrhea, constipation, dysuria, hematuria, frequency, back pain, joint pain or swelling, easy bruising or bleeding, skin lesions or rashes. Physical Exam Physical Exam: General: Resting comfortably in her hospital bed. Head meghan evident. NAD. HEENT: Head is AT/NC buccal mucosa is moist and pink Neck: No JVD. Negative hepatojugular reflex Cardiac: RRR with 2/6 GIOVANNI Lungs: CTA without W/R/R Abdomen: Normoactive X4. Soft and nontender in all quadrants. Extremities: No peripheral clubbing cyanosis or edema Neuro: A&O X4 cranial nerves II through XII are grossly intact no focal neuro d eficits Skin: No obvious skin lesions or rashes Psych: Appropriate affect pleasant and cooperative Results & Data Results & Data ([facility]) Vital Signs (Past 12 Hours) Vital Signs Temp Pulse Resp BP Pulse Ox 03/20/21 07:37 36.6 C 64 16 124/59 L 100 Laboratory Results no labs data today PG Care Time/CCT Total # of Minutes Spent Total Time Spent with Patient: Total time spent is greater than 50% in coordination of care (as documented) at patient's floor/unit and/or counseling patient: Coding Level of Care Code 55972 Subseq Hosp Care Lvl 1 Diagnoses Cirrhosis K74.60 Acute UTI N39.0 Diabetes mellitus E11.9 Seizure R56.9 Myoclonic seizure G40.409 Hyperammonemia E72.20 Parkinsonism G20
[2021-03-20] MEDS: MELATONIN 3 MG TAB PO SCH (21:10)
[2021-03-20] MEDS: FAMOTIDINE 20 MG TAB PO SCH (21:11)
[2021-03-21] MEDS: LEVOTHYROXINE SODIUM 50 MCG TABLET PO SCH (05:34)
[2021-03-21] MEDS: BENZTROPINE MESYLATE 1 MG TAB PO SCH ×3 (08:43→19:45)
[2021-03-21] MEDS: ESCITALOPRAM OXALATE 20 MG TAB PO SCH (08:44)
[2021-03-21] MEDS: DICLOFENAC SOD 1% GEL 100 GM TUBE EXT SCH ×4 (08:44→19:45)
[2021-03-21] MEDS: FEXOFENADINE 60 MG TAB PO SCH (08:45)
[2021-03-21] MEDS: FUROSEMIDE 20 MG TAB PO SCH (08:45)
[2021-03-21] MEDS: INSULIN GLARGINE SOLOSTAR 100 UNITS/ML 3 ML PEN SC SCH (08:46)
[2021-03-21] MEDS: HYDROCORTISONE 10 MG TAB PO SCH ×2 (08:46→18:02)
[2021-03-21] MEDS: levETIRAcetam 500 MG TAB PO SCH ×2 (08:47→19:44)
[2021-03-21] MEDS: MAGNESIUM OXIDE 400 MG TAB PO SCH ×2 (08:47→19:44)
[2021-03-21] MEDS: LACTULOSE SYRUP 20 GM/30 ML UDC PO SCH ×3 (08:47→18:01)
[2021-03-21] MEDS: PRAVASTATIN SOD 20 MG TAB PO SCH (08:48)
[2021-03-21] MEDS: OXcarbazepine 150 MG TABLET PO SCH ×2 (08:48→19:43)
[2021-03-21] MEDS: rifAXIMin 550 MG TABLET PO SCH ×2 (08:49→19:44)
[2021-03-21] MEDS: rOPINIRole HCL 0.25 MG TABLET PO SCH ×2 (08:49→19:44)
[2021-03-21] MEDS: TOPIRAMATE 100 MG TAB PO SCH ×2 (08:49→19:45)
[2021-03-21] MEDS: INSULIN ASPART PER UNIT SC SCH ×4 (08:55→20:59)
--- NOTE | 2021-03-21 16:27 | Hospitalist Progress Note ---
Date of Service March 21, 2021 Assessment & Plan (1) Cirrhosis: Plan: No new issues of been occurring with this patient over the last days as we are waiting for placement. Cirrhosis secondary to STEVE w/ portal hypertension. Patient follows with gastroenterology, last seen by Dr. Toledo on 10/11/20. Patient had an EGD in June 2020 which showed no varices and mild portal-hypertensive gastropathy.HCV screening has been completed and is negative. AFP on 03/09/2019 = 2.6. INR =1.3. Elevation of AP and Tbili comparable to prior levels. - LFTs stable - Initially hospitalized w/ hepatic encephalopathy - at baseline mentation currently - Continue Lactulose, Rifaximin 550 mg p.o. twice daily--> patient averaging 4BM's/day - Pepcid 20mg po qHS - Last ammonia 03/03 74 but in normal range for patient - checked due to tiredness, otherwise her mentation has been baseline x multiple weeks - Patient to have US in 1 year for HCC surveillance and EGD in 3 years for variceal screening. (2) Acute UTI: Plan: - Urine cx with Proteus resistance to FQs on 01/31, s/p treatment with Ceftriaxone - Urinary sx return 02/21, recultured showing coag neg staph not saprophytic, no history of staph UTI completed course of clindamycin - Vaginal itching/burning and was treated with clotrimazole x 7 days and finished treatment 02/21 - No current urinary symptoms (3) Diabetes mellitus: Plan: Patient with type 2 diabetes, well controlled, long-term use of insulin. Last hemoglobin A1c=5.6 on 05/23/20. Patient follows with Endocrinology/Diabetes education. Last seen on 01/04/21. - Continue Lantus while here, Tresiba as outpt - ISS - Goal blood sugar 100 - 140 - Recommend annual A1c monitoring - Is on hydrocortisone BID for suspected adrenal insufficiency - endocrinology questions the validity of ACTH deficiency diagnosis and plan to repeat testing to confirm diagnosis as outpatient - Follow up with elementary educator outpatient as instructed (4) Seizure: Plan: Seizure disorder: Patient with history of seizure. She follows with neurology, last seen on 10/30/20 - follows for mixed tremor as well as dyskinesia and seizure history, parkinsonism. EEG completed in May 2018 revealed a generalized spike and slow wave abnormality consistent with an underlying generalized seizure disorder. Patient had an MRI brain completed in October 2017 which was unremarkable. Patient failed VNS placement in the past, device was explanted. Presently on topiramate, Trileptal and Keppra. 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 Patient gets 24 hours care from her (who is aging and has health issues of his own). This has been discussed by the PCP as well. Target process complete and awaiting bed availability. Is stable for D/C pending arrangements. Multiple referrals placed and awaiting determination. 03/19, patient requesting discharge to home but this has been discouraged as safety at home has been a concern. reports he believes he can care for her now with added support but patient's waiver services have been revoked since we have been pursuing placement to long-term care. With lack of outpatient staff available, she will not receive the care needed and home is not a safe discharge plan. Case mgmt working on this. Admission and Anticipated Discharge Date Admission Date: January 31, 2021 Subjective Patient seen on daily rounds today. Vocalizes no significant complaints or concerns. Denies fevers, chills, chest pain, shortness breath, abdominal pain, nausea or vomiting. Review of Systems Review of Systems: All systems reviewed and are unremarkable except as noted in HPI and below Denies fevers, chills, headache, nasal congestion, sore throat, cough, chest pain, shortness of breath, palpitations, orthopnea, PND, abdominal pain, nausea, vomiting, diarrhea, constipation, dysuria, hematuria, frequency, back pain, joint pain or swelling, easy bruising or bleeding, skin lesions or rashes. Physical Exam Physical Exam: General: Resting comfortably in her hospital bed. Hea d meghan evident. NA D. HEENT: Head is AT/NC buccal mucos a is moist and pin k Neck: No JVD. N egative hepatojugu lar reflex Cardiac : RRR with 2/6 GIOVANNI Lungs: CTA withou t W/R/R Abdomen: N ormoactive X4. So ft and nontender i n all quadrants. E xtremities: No per ipheral clubbing c yanosis or edema N euro: A&O X4 crani al nerves II throu gh XII are grossly intact no focal n euro deficits Skin : No obvious skin lesions or rashes Psych: Appropriate affect pleasant a nd cooperative Results & Data Results & Data ([facility]) Vital Signs (Past 12 Hours) Vital Signs Temp Pulse Resp BP BP Pulse Ox 03/21/21 15:43 36.4 C L 69 20 119/76 97 03/21/21 07:58 36.3 C L 59 L 18 123/74 95 PG Care Time/CCT Total # of Minutes Spent Total Time Spent with Patient: Total time spent is greater than 50% in coordination of care (as documented) at patient's floor/unit and/or counseling patient: Coding Level of Care Code 45851 Subseq Hosp Care Lvl 1 Diagnoses Cirrhosis K74.60 Acute UTI N39.0 Diabetes mellitus E11.9 Seizure R56.9 Myoclonic seizure G40.409 Hyperammonemia E72.20 Parkinsonism G20
[2021-03-21] MEDS: FAMOTIDINE 20 MG TAB PO SCH (19:45)
[2021-03-21] MEDS: MELATONIN 3 MG TAB PO SCH (19:45)
[2021-03-22] MEDS: PROMETHAZINE HCL 25 MG TAB PO PRN (03:40)
[2021-03-22] MEDS: LEVOTHYROXINE SODIUM 50 MCG TABLET PO SCH (05:38)
[2021-03-22] MEDS: INSULIN ASPART PER UNIT SC SCH ×4 (09:17→21:20)
[2021-03-22] MEDS: BENZTROPINE MESYLATE 1 MG TAB PO SCH ×3 (09:21→21:14)
[2021-03-22] MEDS: levETIRAcetam 500 MG TAB PO SCH ×2 (09:22→21:13)
[2021-03-22] MEDS: FEXOFENADINE 60 MG TAB PO SCH (09:22)
[2021-03-22] MEDS: MAGNESIUM OXIDE 400 MG TAB PO SCH ×2 (09:22→21:14)
[2021-03-22] MEDS: FUROSEMIDE 20 MG TAB PO SCH (09:23)
[2021-03-22] MEDS: rOPINIRole HCL 0.25 MG TABLET PO SCH ×2 (09:23→21:13)
[2021-03-22] MEDS: rifAXIMin 550 MG TABLET PO SCH ×2 (09:23→21:14)
[2021-03-22] MEDS: HYDROCORTISONE 10 MG TAB PO SCH ×2 (09:24→16:39)
[2021-03-22] MEDS: TOPIRAMATE 100 MG TAB PO SCH ×2 (09:25→21:14)
[2021-03-22] MEDS: PRAVASTATIN SOD 20 MG TAB PO SCH (09:25)
[2021-03-22] MEDS: OXcarbazepine 150 MG TABLET PO SCH ×2 (09:25→21:14)
[2021-03-22] MEDS: ESCITALOPRAM OXALATE 20 MG TAB PO SCH (09:25)
[2021-03-22] MEDS: LACTULOSE SYRUP 20 GM/30 ML UDC PO SCH ×3 (09:26→17:15)
[2021-03-22] MEDS: DICLOFENAC SOD 1% GEL 100 GM TUBE EXT SCH ×4 (09:28→21:12)
[2021-03-22] MEDS: INSULIN GLARGINE SOLOSTAR 100 UNITS/ML 3 ML PEN SC SCH (09:29)
--- NOTE | 2021-03-22 18:40 | Hospitalist Progress Note ---
Date of Service March 22, 2021 Assessment & Plan (1) Cirrhosis: Plan: No new issues of been occurring with this patient over the last days as we are waiting for placement. Cirrhosis secondary to STEVE w/ portal hypertension. Patient follows with gastroenterology, last seen by Dr. Toledo on 10/11/20. Patient had an EGD in June 2020 which showed no varices and mild portal-hypertensive gastropathy.HCV screening has been completed and is negative. AFP on 03/09/2019 = 2.6. INR =1.3. Elevation of AP and Tbili comparable to prior levels. - LFTs stable - Initially hospitalized w/ hepatic encephalopathy - at baseline mentation currently - Continue Lactulose, Rifaximin 550 mg p.o. twice daily--> patient averaging 4BM's/day - Pepcid 20mg po qHS - Last ammonia 03/03 74 but in normal range for patient - checked due to tiredness, otherwise her mentation has been baseline x multiple weeks - Patient to have US in 1 year for HCC surveillance and EGD in 3 years for variceal screening - not on aldactone. Was on in past and stopped. unsure as to why? (2) Acute UTI: Plan: - Urine cx with Proteus resistance to FQs on 01/31, s/p treatment with Ceftriaxone - Urinary sx return 02/21, recultured showing coag neg staph not saprophytic, no history of staph UTI completed course of clindamycin - Vaginal itching/burning and was treated with clotrimazole x 7 days and finished treatment 02/21 - No current urinary symptoms (3) Diabetes mellitus: Plan: Patient with type 2 diabetes, well controlled, long-term use of insulin. Last hemoglobin A1c=5.6 on 05/23/20. Patient follows with Endocrinology/Diabetes education. Last seen on 01/04/21. - Continue Lantus while here, Tresiba as outpt - ISS - Goal blood sugar 100 - 140 - Recommend annual A1c monitoring - Is on hydrocortisone BID for suspected adrenal insufficiency - endocrinology questions the validity of ACTH deficiency diagnosis and plan to repeat testing to confirm diagnosis as outpatient - Follow up with para educator outpatient as instructed (4) Seizure: Plan: Seizure disorder: Patient with history of seizure. She follows with neurology, last seen on 10/30/20 - follows for mixed tremor as well as dyskinesia and seizure history, parkinsonism. EEG completed in May 2018 revealed a generalized spike and slow wave abnormality consistent with an underlying generalized seizure disorder. Patient had an MRI brain completed in October 2017 which was unremarkable. Patient failed VNS placement in the past, device was explanted. Presently on topiramate, Trileptal and Keppra. 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 Patient gets 24 hours care from her (who is aging and has health issues of his own). This has been discussed by the PCP as well. [facility] process complete and awaiting bed availability. Is stable for D/C pending arrangements. Multiple referrals placed and awaiting determination. 03/19: patient requesting discharge to home but this has been discouraged as safety at home has been a concern. reports he believes he can care for her now with added support but patient's waiver services have been revoked since we have been pursuing placement to long-term care. With lack of outpatient staff available, she will not receive the care needed and home is not a safe discharge plan. Case mgmt working on this. 03/22: patient aware no support at home as waiver services revoked while in house. Agreeable for placement. CM working on this. Admission and Anticipated Discharge Date Admission Date: January 31, 2021 Subjective Patient seen on daily rounds today. Pleasant and vocalizes no complaints or concerns. Initially she was adamant that she was going home but is now agreeable for placement. Case management has been working on this. Denies fevers, chills, chest pain, shortness of breath, abdominal pain, nausea or vomiting. Having 2-4 BMs a day on average. Review of Systems Review of Systems: All systems reviewed and are unremarkable except as noted in HPI and below Denies fevers, chills, headache, nasal congestion, sore throat, cough, chest pain, shortness of breath, palpitations, orthopnea, PND, abdominal pain, nausea, vomiting, diarrhea, constipation, dysuria, hematuria, frequency, back pain, joint pain or swelling, easy bruising or bleeding, skin lesions or rashes. Physical Exam Physical Exam: General: Resting comfortably in her hospital bed. Chronic head meghan noted. NAD. HEENT: Head is AT/NC buccal mucosa is moist and pink Neck: No JVD. Negative hepatojugular reflex Cardiac: RRR with 2/6 GIOVANNI Lungs: CTA without W/R/R Abdomen: Normoactive X4. Soft and nontender in all quadrants. Extremities: No peripheral clubbing cyanosis or edema Neuro: A&O X4 cranial nerves II through XII are grossly intact no focal neuro deficits Skin: No obvious skin lesions or rashes Psych: Appropriate affect pleasant and cooperative Results & Data Results & Data ([facility]) Vital Signs (Past 12 Hours) Vital Signs Temp Pulse Resp BP BP Pulse Ox 03/22/21 16:09 36.4 C L 64 16 118/58 L 99 03/22/21 07:23 36.5 C 57 L 16 148/55 H 100 PG Care Time/CCT Total # of Minutes Spent Total Time Spent with Patient: Total time spent is greater than 50% in coordination of care (as documented) at patient's floor/unit and/or counseling patient: Coding Level of Care Code 57724 Subseq Hosp Care Lvl 1 Diagnoses Cirrhosis K74.60 Acute UTI N39.0 Diabetes mellitus E11.9 Seizure R56.9 Myoclonic seizure G40.409 Hyperammonemia E72.20 Parkinsonism G20
[2021-03-22] MEDS: FAMOTIDINE 20 MG TAB PO SCH (21:13)
[2021-03-22] MEDS: MELATONIN 3 MG TAB PO SCH (21:16)
[2021-03-23] MEDS: LEVOTHYROXINE SODIUM 50 MCG TABLET PO SCH (04:30)
[2021-03-23] MEDS: DICLOFENAC SOD 1% GEL 100 GM TUBE EXT SCH ×4 (08:49→21:31)
[2021-03-23] MEDS: BENZTROPINE MESYLATE 1 MG TAB PO SCH ×3 (08:49→21:30)
[2021-03-23] MEDS: INSULIN ASPART PER UNIT SC SCH ×4 (08:49→21:31)
[2021-03-23] MEDS: ESCITALOPRAM OXALATE 20 MG TAB PO SCH (08:50)
[2021-03-23] MEDS: LACTULOSE SYRUP 20 GM/30 ML UDC PO SCH ×3 (08:51→17:11)
[2021-03-23] MEDS: FUROSEMIDE 20 MG TAB PO SCH (08:51)
[2021-03-23] MEDS: levETIRAcetam 500 MG TAB PO SCH ×2 (08:51→21:29)
[2021-03-23] MEDS: FEXOFENADINE 60 MG TAB PO SCH (08:51)
[2021-03-23] MEDS: HYDROCORTISONE 10 MG TAB PO SCH ×2 (08:51→13:58)
[2021-03-23] MEDS: INSULIN GLARGINE SOLOSTAR 100 UNITS/ML 3 ML PEN SC SCH (08:51)
[2021-03-23] MEDS: rifAXIMin 550 MG TABLET PO SCH ×2 (08:52→21:28)
[2021-03-23] MEDS: MAGNESIUM OXIDE 400 MG TAB PO SCH ×2 (08:52→21:29)
[2021-03-23] MEDS: rOPINIRole HCL 0.25 MG TABLET PO SCH ×2 (08:52→21:28)
[2021-03-23] MEDS: PRAVASTATIN SOD 20 MG TAB PO SCH (08:52)
[2021-03-23] MEDS: TOPIRAMATE 100 MG TAB PO SCH ×2 (08:52→21:28)
[2021-03-23] MEDS: OXcarbazepine 150 MG TABLET PO SCH ×2 (08:52→21:30)
--- NOTE | 2021-03-23 10:36 | Hospitalist Progress Note ---
Date of Service March 23, 2021 Assessment & Plan (1) Cirrhosis: Plan: No new issues of been occurring with this patient over the last days as we are waiting for placement. Cirrhosis secondary to STEVE w/ portal hypertension. Patient follows with gastroenterology, last seen by Dr. Toledo on 10/11/20. Patient had an EGD in June 2020 which showed no varices and mild portal-hypertensive gastropathy.HCV screening has been completed and is negative. AFP on 03/09/2019 = 2.6. INR =1.3. Elevation of AP and Tbili comparable to prior levels. - LFTs stable - Initially hospitalized w/ hepatic encephalopathy - at baseline mentation currently - Continue Lactulose, Rifaximin 550 mg p.o. twice daily--> patient averaging 4BM's/day - Pepcid 20mg po qHS - Last ammonia 03/03 74 but in normal range for patient - checked due to tiredness, otherwise her mentation has been baseline x multiple weeks - Patient to have US in 1 year for HCC surveillance and EGD in 3 years for variceal screening - not on aldactone. Was on in past and stopped. unsure as to why? (2) Acute UTI: Plan: - Urine cx with Proteus resistance to FQs on 01/31, s/p treatment with Ceftriaxone - Urinary sx return 02/21, recultured showing coag neg staph not saprophytic, no history of staph UTI completed course of clindamycin - Vaginal itching/burning and was treated with clotrimazole x 7 days and finished treatment 02/21 - No current urinary symptoms (3) Diabetes mellitus: Plan: Patient with type 2 diabetes, well controlled, long-term use of insulin. Last hemoglobin A1c=5.6 on 05/23/20. Patient follows with Endocrinology/Diabetes education. Last seen on 01/04/21. - Continue Lantus while here, Tresiba as outpt - ISS - Goal blood sugar 100 - 140 - Recommend annual A1c monitoring - Is on hydrocortisone BID for suspected adrenal insufficiency - endocrinology questions the validity of ACTH deficiency diagnosis and plan to repeat testing to confirm diagnosis as outpatient - Follow up with wellness educator outpatient as instructed (4) Seizure: Plan: Seizure disorder: Patient with history of seizure. She follows with neurology, last seen on 10/30/20 - follows for mixed tremor as well as dyskinesia and seizure history, parkinsonism. EEG completed in May 2018 revealed a generalized spike and slow wave abnormality consistent with an underlying generalized seizure disorder. Patient had an MRI brain completed in October 2017 which was unremarkable. Patient failed VNS placement in the past, device was explanted. Presently on topiramate, Trileptal and Keppra. 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 Patient gets 24 hours care from her (who is aging and has health issues of his own). This has been discussed by the PCP as well. Target process complete and awaiting bed availability. Is stable for D/C pending arrangements. Multiple referrals placed and awaiting determination. 03/19: patient requesting discharge to home but this has been discouraged as safety at home has been a concern. reports he believes he can care for her now with added support but patient's waiver services have been revoked since we have been pursuing placement to long-term care. With lack of outpatient staff available, she will not receive the care needed and home is not a safe discharge plan. Case mgmt working on this. 03/22: patient aware no support at home as waiver services revoked while in house. Agreeable for placement. CM working on this. Admission and Anticipated Discharge Date Admission Date: January 31, 2021 Subjective Patient seen on daily rounds today. Pleasant and vocalizes no complaints or concerns. Initially she was adamant that she was going home but is now agreeable for placement. Case management has been working on this. Denies fevers, chills, chest pain, shortness of breath, abdominal pain, nausea or vomiting. Having 2-4 BMs a day on average. Physical Exam Physical Exam: GENERAL: 55 yo WF. Well-developed, well-nourished. NAD. LUNGS: Clear to auscultation bilaterally. No accessory muscle use. No W/R/R. CARDIOVASCULAR: Regular rate and rhythm. No M/G/R. No JVD. ABDOMEN: Soft, non-tender and non-distended. No palpable masses. Bowel sounds normoactive x 4 quad. EXTREMITIES: No edema. Non-tender. Peripheral pulses +2/4. NEUROLOGIC: A&O x3. Head Tremor noted. PSYCHIATRIC: Cooperative. Appropriate mood and affect. SKIN: Warm, dry, intact. No rashes or lesions. Results & Data Results & Data ([facility]) Vital Signs (Past 12 Hours) Vital Signs Temp Pulse Resp BP Pulse Ox 03/23/21 07:54 36.8 C 61 16 135/67 98 PG Care Time/CCT Total # of Minutes Spent Total Time Spent with Patient: Total time spent is greater than 50% in coordination of care (as documented) at patient's floor/unit and/or counseling patient: Coding Level of Care Code 23769 Subseq Hosp Care Lvl 2 Diagnoses Cirrhosis K74.60 Acute UTI N39.0 Diabetes mellitus E11.9 Seizure R56.9 Myoclonic seizure G40.409 Hyperammonemia E72.20 Parkinsonism G20
[2021-03-23] MEDS: MELATONIN 3 MG TAB PO SCH (21:27)
[2021-03-23] MEDS: FAMOTIDINE 20 MG TAB PO SCH (21:29)
[2021-03-24] MEDS: LEVOTHYROXINE SODIUM 50 MCG TABLET PO SCH (05:35)
[2021-03-24] MEDS: PROMETHAZINE HCL 25 MG TAB PO PRN (05:37)
[2021-03-24] MEDS: FEXOFENADINE 60 MG TAB PO SCH (08:29)
[2021-03-24] MEDS: HYDROCORTISONE 10 MG TAB PO SCH ×2 (08:29→14:25)
[2021-03-24] MEDS: DICLOFENAC SOD 1% GEL 100 GM TUBE EXT SCH ×4 (08:30→20:32)
[2021-03-24] MEDS: FUROSEMIDE 20 MG TAB PO SCH (08:30)
[2021-03-24] MEDS: BENZTROPINE MESYLATE 1 MG TAB PO SCH ×3 (08:30→20:34)
[2021-03-24] MEDS: MAGNESIUM OXIDE 400 MG TAB PO SCH ×2 (08:31→20:33)
[2021-03-24] MEDS: OXcarbazepine 150 MG TABLET PO SCH ×2 (08:31→20:33)
[2021-03-24] MEDS: levETIRAcetam 500 MG TAB PO SCH ×2 (08:31→20:32)
[2021-03-24] MEDS: LACTULOSE SYRUP 20 GM/30 ML UDC PO SCH ×3 (08:31→17:41)
[2021-03-24] MEDS: PRAVASTATIN SOD 20 MG TAB PO SCH (08:31)
[2021-03-24] MEDS: rifAXIMin 550 MG TABLET PO SCH ×2 (08:32→20:33)
[2021-03-24] MEDS: rOPINIRole HCL 0.25 MG TABLET PO SCH ×2 (08:32→20:34)
[2021-03-24] MEDS: TOPIRAMATE 100 MG TAB PO SCH ×2 (08:32→20:33)
[2021-03-24] MEDS: ESCITALOPRAM OXALATE 20 MG TAB PO SCH (08:33)
[2021-03-24] MEDS: INSULIN GLARGINE SOLOSTAR 100 UNITS/ML 3 ML PEN SC SCH (09:29)
[2021-03-24] MEDS: INSULIN ASPART PER UNIT SC SCH ×4 (09:33→20:32)
--- NOTE | 2021-03-24 17:33 | Hospitalist Progress Note ---
Date of Service March 24, 2021 Assessment & Plan (1) Cirrhosis: Plan: No new issues have been occurring with this patient over the last days as we are waiting for placement. Cirrhosis secondary to STEVE w/ portal hypertension. Patient follows with gastroenterology, last seen by Dr. Toledo on 10/11/20. Patient had an EGD in June 2020 which showed no varices and mild portal-hypertensive gastropathy.HCV screening has been completed and is negative. AFP on 03/09/2019 = 2.6. INR =1.3. Elevation of AP and Tbili comparable to prior levels. - LFTs stable - Initially hospitalized w/ hepatic encephalopathy - at baseline mentation currently - Continue Lactulose, Rifaximin 550 mg p.o. twice daily--> patient averaging 4BM's/day - Pepcid 20mg po qHS - Last ammonia 03/03 74 but in normal range for patient - checked due to tiredness, otherwise her mentation has been baseline x multiple weeks - Patient to have US in 1 year for HCC surveillance and EGD in 3 years for variceal screening - not on aldactone. Was on in past and stopped. unsure as to why? -Last set of labs obtained 03/03/2021. Will obtain follow-up labs tomorrow. (2) Acute UTI: Plan: - Urine cx with Proteus resistance to FQs on 01/31, s/p treatment with Ceftriaxone - Urinary sx return 02/21, recultured showing coag neg staph not saprophytic, no history of staph UTI completed course of clindamycin - Vaginal itching/burning and was treated with clotrimazole x 7 days and finished treatment 02/21 - No current urinary symptoms (3) Diabetes mellitus: Plan: Patient with type 2 diabetes, well controlled, long-term use of insulin. Last hemoglobin A1c=5.6 on 05/23/20. Patient follows with Endocrinology/Diabetes education. Last seen on 01/04/21. - Continue Lantus while here, Treansleyba as outpt - ISS - Goal blood sugar 100 - 140 - Recommend annual A1c monitoring - Is on hydrocortisone BID for suspected adrenal insufficiency - endocrinology questions the validity of ACTH deficiency diagnosis and plan to repeat testing to confirm diagnosis as outpatient - Follow up with agricultural extension educator outpatient as instructed (4) Seizure: Plan: Seizure disorder: Patient with history of seizure. She follows with neurology, last seen on 10/30/20 - follows for mixed tremor as well as dyskinesia and seizure history, parkinsonism. EEG completed in May 2018 revealed a generalized spike and slow wave abnormality consistent with an underlying generalized seizure disorder. Patient had an MRI brain completed in October 2017 which was unremarkable. Patient failed VNS placement in the past, device was explanted. Presently on topiramate, Trileptal and Keppra. 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 (6) Hyperammonemia: Plan: - Chronic and long standing, continue to treat with cathartic agents (7) Parkinsonism: Plan: - Secondary to psych meds, continue benztropine Plan: PT/OT- 3x/week Case Management working on retirement placement given care needed at home. Patient gets 24 hours care from her (who is aging and has health issues of his own). This has been discussed by the PCP as well. [facility] process c om[facility] and awaiting bed availability. Is stable for D/C pending arrangements. Multiple referrals placed and awaiting determination. 03/19: patient requesting discharge to home but this has been discouraged as safety at home has been a concern. reports he believes he can care for her now with added support but patient's waiver services have been revoked since we have been pursuing placement to long-term care. With lack of outpatient staff available, she will not receive the care needed and home is not a safe discharge plan. Case mgmt working on this. 03/22: patient aware no support at home as waiver services revoked while in house. Agreeable for placement. CM working on this. 03/24: Discussed with patient's . At this time no options for returning home as I do not have support. While he would love to bring her home, he recognizes that she needs skilled care and placement. Admission and Anticipated Discharge Date Admission Date: January 31, 2021 Subjective Attending: Dr. Rice Patient seen and examined at bedside. Initially she was difficult to arouse. When she awoke. She was very talkative. She is insistent that she has help at home and can be discharged to the house. I spoke to her who said that this is not in fact the truth. They continue to await placement for her. Review of Systems Review of Systems: All systems reviewed & are unremarkable except as noted in Subjective Physical Exam Physical Exam: GENERAL : No acute distress EYES: No icterus, gaze conjugate NOSE: No evidence of epistaxis MOUTH: No lesions or candidiasis NECK: Supple LUNGS: CTA B/L, no wheezes, rales or rhonchi HEART: Regular, rate controlled ABDOMEN: Soft, NT, ND, BS Present EXTREMITIES: No LE edema, pedal pulses intact NEURO: A&OX3 Results & Data Results & Data ([facility]) Vital Signs (Past 12 Hours) Vital Signs Temp Pulse Resp BP Pulse Ox 03/24/21 15:07 36.6 C 77 14 115/64 97 03/24/21 05:32 36.7 C 56 L 16 131/65 99 Laboratory Results 03/03/21 12:33 03/03/21 12:33 PG Care Time/CCT Total # of Minutes Spent Total Time Spent with Patient: Total time spent is greater than 50% in coordination of care (as documented) at patient's floor/unit and/or counseling patient:15 Coding Level of Care Code 09744 Subseq Hosp Care Lvl 1 Diagnoses Cirrhosis K74.60 Acute UTI N39.0 Diabetes mellitus E11.9 Seizure R56.9 Myoclonic seizure G40.409 Hyperammonemia E72.20 Parkinsonism G20 Time Spent (min) 15
[2021-03-24] MEDS: FAMOTIDINE 20 MG TAB PO SCH (20:33)
[2021-03-24] MEDS: MELATONIN 3 MG TAB PO SCH (20:36)
[2021-03-25] MEDS: LEVOTHYROXINE SODIUM 50 MCG TABLET PO SCH (04:41)
[2021-03-25 07:55] LABS: Hematocrit (blood only) 30.4 % (37-47); Hemoglobin 10.4 g/dL (12.0-16.0); Mean Corpuscular Hemoglobin 36.2 pg (25-34); Mean Corpuscular Hgb Conc 34.2 g/dL (32-36); Mean Corpuscular Volume 105.9 fL (80-100); RDW Coefficient of Variation 13.5 % (11.5-14.5); RDW Standard Deviation 51.7 fL (36.4-46.3); Red Blood Count 2.87 M/uL (4.2-5.4); White Blood Count 3.93 K/uL (4.8-10.8)
[2021-03-25] MEDS: ESCITALOPRAM OXALATE 20 MG TAB PO SCH (08:03)
[2021-03-25] MEDS: PRAVASTATIN SOD 20 MG TAB PO SCH (08:03)
[2021-03-25] MEDS: levETIRAcetam 500 MG TAB PO SCH ×2 (08:03→20:28)
[2021-03-25] MEDS: rOPINIRole HCL 0.25 MG TABLET PO SCH ×2 (08:03→20:27)
[2021-03-25] MEDS: HYDROCORTISONE 10 MG TAB PO SCH ×2 (08:03→14:48)
[2021-03-25] MEDS: rifAXIMin 550 MG TABLET PO SCH ×2 (08:03→20:28)
[2021-03-25] MEDS: BENZTROPINE MESYLATE 1 MG TAB PO SCH ×3 (08:03→20:29)
[2021-03-25] MEDS: OXcarbazepine 150 MG TABLET PO SCH ×2 (08:03→20:28)
[2021-03-25] MEDS: TOPIRAMATE 100 MG TAB PO SCH ×2 (08:04→20:28)
[2021-03-25] MEDS: FEXOFENADINE 60 MG TAB PO SCH (08:04)
[2021-03-25] MEDS: FUROSEMIDE 20 MG TAB PO SCH (08:04)
[2021-03-25] MEDS: LACTULOSE SYRUP 20 GM/30 ML UDC PO SCH ×3 (08:04→18:21)
[2021-03-25] MEDS: MAGNESIUM OXIDE 400 MG TAB PO SCH ×2 (08:04→20:29)
[2021-03-25] MEDS: DICLOFENAC SOD 1% GEL 100 GM TUBE EXT SCH ×4 (08:08→20:27)
[2021-03-25 08:23] LABS: BUN Creatinine Ratio 29.5 (10-20); Calcium 7.8 mg/dl (8.5-10.1); Creatinine Clr Calc Pharmacy 122.1 ml/min; Est GFR (African American) 123.1 ml/min; Est GFR (Non-African American) 106.2 ml/min; Magnesium 1.7 mg/dl (1.8-2.4); Potassium 4.1 mmol/L (3.5-5.1)
[2021-03-25 08:30] LABS: Platelet Count 84 K/uL (130-400)
[2021-03-25] MEDS: INSULIN ASPART PER UNIT SC SCH ×4 (09:13→20:26)
[2021-03-25] MEDS: INSULIN GLARGINE SOLOSTAR 100 UNITS/ML 3 ML PEN SC SCH (09:13)
--- NOTE | 2021-03-25 11:28 | Hospitalist Progress Note ---
Date of Service March 25, 2021 Assessment & Plan (1) Cirrhosis: Plan: No new issues have been occurring with this patient over the last days as we are waiting for placement. Cirrhosis secondary to STEVE w/ portal hypertension. Patient follows with gastroenterology, last seen by Dr. Toledo on 10/11/20. Patient had an EGD in June 2020 which showed no varices and mild portal-hypertensive gastropathy.HCV screening has been completed and is negative. AFP on 03/09/2019 = 2.6. INR =1.3. Elevation of AP and Tbili comparable to prior levels. - LFTs stable - Initially hospitalized w/ hepatic encephalopathy - at baseline mentation currently - Continue Lactulose, Rifaximin 550 mg p.o. twice daily--> patient averaging 4BM's/day - Pepcid 20mg po qHS - Last ammonia 03/03 74 but in normal range for patient - checked due to tiredness, otherwise her mentation has been baseline x multiple weeks - Patient to have US in 1 year for HCC surveillance and EGD in 3 years for variceal screening - not on aldactone. Was on in past and stopped. unsure as to why? -Last set of labs obtained 03/03/2021. Repeat labs drawn this AM. (2) Acute UTI: Plan: - Urine cx with Proteus resistance to FQs on 01/31, s/p treatment with Ceftriaxone - Urinary sx return 02/21, recultured showing coag neg staph not saprophytic, no history of staph UTI completed course of clindamycin - Vaginal itching/burning and was treated with clotrimazole x 7 days and finished treatment 02/21 - No current urinary symptoms (3) Diabetes mellitus: Plan: Patient with type 2 diabetes, well controlled, long-term use of insulin. Last hemoglobin A1c=5.6 on 05/23/20. Patient follows with Endocrinology/Diabetes education. Last seen on 01/04/21. - Continue Lantus while here, Tresiba as outpt - ISS - Goal blood sugar 100 - 140 - Recommend annual A1c monitoring - Is on hydrocortisone BID for suspected adrenal insufficiency - endocrinology questions the validity of ACTH deficiency diagnosis and plan to repeat testing to confirm diagnosis as outpatient - Follow up with early childhood educator aide outpatient as instructed (4) Seizure: Plan: Seizure disorder: Patient with history of seizure. She follows with neurology, last seen on 10/30/20 - follows for mixed tremor as well as dyskinesia and seizure history, parkinsonism. EEG completed in May 2018 revealed a generalized spike and slow wave abnormality consistent with an underlying generalized seizure disorder. Patient had an MRI brain completed in October 2017 which was unremarkable. Patient failed VNS placement in the past, device was explanted. Presently on topiramate, Trileptal and Keppra. 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 (6) Hyperammonemia: Plan: - Chronic and long standing, continue to treat with cathartic agents (7) Parkinsonism: Plan: - Secondary to psych meds, continue benztropine (8) Hypomagnesemia: Plan: Replacement ordered Plan: PT/OT- 3x/week Case Management working on custodial placement given care needed at home. Patient gets 24 hours care from her (who is aging and has health issues of his own). This has been discussed by the PCP as well. [facility] process complete and awaiting bed availability. Is stable for D/C pending arrangements. Multiple referrals placed and awaiting determination. 03/19: patient requesting discharge to home but this has been discouraged as safety at home has been a concern. reports he believes he can care for her now with added support but patient's waiver services have been revoked since we have been pursuing placement to long-term care. With lack of outpatient staff available, she will not receive the care needed and home is not a safe discharge plan. Case mgmt working on this. 03/22: patient aware no support at home as waiver services revoked while in house. Agreeable for placement. CM working on this. 03/24: GHULAM Bourgeois discussed with patient's . At this time no options for returning home as he does not have support. While he would love to bring her home, he recognizes that she needs skilled care and placement. Admission and Anticipated Discharge Date Admission Date: January 31, 2021 Subjective Patient seen this morning on rounds. She is currently in bedside chair, offers no complaints. Pt asking about the "liquid medicine for thrush." She states she was getting it but isn't getting it any more and feels that she needs it. Review of Systems Review of Systems: CONSTITUTIONAL: Denies weight loss/gain, fever and chills, fatigue, malaise, generalized weakness. HEENT: Denies changes in vision and hearing. RESPIRATORY: Denies SOB, cough, wheezing. CV: Denies palpitations, CP, lower extremity edema, orthopnea, PND. GI: Denies abdominal pain, nausea, vomiting and diarrhea. : Denies dysuria and urinary frequency, urgency, hesitancy. MUSCULOSKELETAL: Denies myalgia and joint pain. SKIN: Denies rash and pruritus. NEUROLOGICAL: Denies headache, syncope, focal weakness, numbness, tingling. PSYCHIATRIC: Denies recent changes in mood. Denies anxiety and depression. Physical Exam Physical Exam: GENERAL: 55 yo WF. Well-developed, well-nourished. NAD. MOUTH: No obvious signs of thrush as far as pt would open her mouth for examination LUNGS: Clear to auscultation bilaterally. No accessory muscle use. No W/R/R. CARDIOVASCULAR: Regular rate and rhythm. No M/G/R. No JVD. ABDOMEN: Soft, non-tender and non-distended. No palpable masses. Bowel sounds normoactive x 4 quad. EXTREMITIES: No edema. Non-tender. Peripheral pulses +2/4. NEUROLOGIC: A&O x3. Head Tremor noted. PSYCHIATRIC: Cooperative. Appropriate mood and affect. SKIN: Warm, dry, intact. No rashes or lesions. Results & Data Results & Data ([facility]) Vital Signs (Past 12 Hours) Vital Signs Temp Pulse Resp BP Pulse Ox 03/25/21 07:36 36.5 C 57 L 16 114/73 97 Laboratory Results 03/25/21 07:09 03/25/21 07:09 Ma.7 PG Care Time/CCT Total # of Minutes Spent Total Time Spent with Patient: Total time spent is greater than 50% in coordination of care (as documented) at patient's floor/unit and/or counseling patient: Coding Level of Care Code 50061 Subseq Hosp Care Lvl 2 Diagnoses Cirrhosis K74.60 Acute UTI N39.0 Diabetes mellitus E11.9 Seizure R56.9 Myoclonic seizure G40.409 Hyperammonemia E72.20 Parkinsonism G20 Hypomagnesemia E83.42
[2021-03-25] MEDS ORDERED: MAGNESIUM SULFATE / D5W 1 GM/100 ML BAG IV ONE (11:45)
[2021-03-25] MEDS ORDERED: MAGNESIUM OXIDE 400 MG TAB PO ONE (12:45)
[2021-03-25] MEDS: MELATONIN 3 MG TAB PO SCH (20:27)
[2021-03-25] MEDS: FAMOTIDINE 20 MG TAB PO SCH (20:27)
[2021-03-26] MEDS: PROMETHAZINE HCL 25 MG TAB PO PRN ×2 (04:49→15:18)
[2021-03-26] MEDS: LEVOTHYROXINE SODIUM 50 MCG TABLET PO SCH (04:49)
--- NOTE | 2021-03-26 08:18 | Hospitalist Progress Note ---
Date of Service March 26, 2021 Assessment & Plan (1) Cirrhosis: Plan: No new issues have been occurring with this patient over the last days as we are waiting for placement. Cirrhosis secondary to STEVE w/ portal hypertension. Patient follows with gastroenterology, last seen by Dr. Toledo on 10/11/20. Patient had an EGD in June 2020 which showed no varices and mild portal-hypertensive gastropathy.HCV screening has been completed and is negative. AFP on 03/09/2019 = 2.6. INR =1.3. Elevation of AP and Tbili comparable to prior levels. - LFTs stable - Initially hospitalized w/ hepatic encephalopathy - at baseline mentation currently - Continue Lactulose, Rifaximin 550 mg p.o. twice daily--> patient averaging 4BM's/day - Pepcid 20mg po qHS - Last ammonia 03/03 74 but in normal range for patient - checked due to tiredness, otherwise her mentation has been baseline x multiple weeks - Patient to have US in 1 year for HCC surveillance and EGD in 3 years for variceal screening - not on aldactone. Was on in past and stopped. unsure as to why? -Last set of labs obtained 03/03/2021. Repeat labs drawn this AM. (2) Diabetes mellitus: Plan: Patient with type 2 diabetes, well controlled, long-term use of insulin. Last hemoglobin A1c=5.6 on 05/23/20. Patient follows with Endocrinology/Diabetes education. Last seen on 01/04/21. - Continue Lantus while here, Tresiba as outpt - ISS - Goal blood sugar 100 - 140 - Recommend annual A1c monitoring - Is on hydrocortisone BID for suspected adrenal insufficiency - endocrinology questions the validity of ACTH deficiency diagnosis and plan to repeat testing to confirm diagnosis as outpatient - Follow up with development educator outpatient as instructed (3) Seizure: Plan: Seizure disorder: Patient with history of seizure. She follows with neurology, last seen on 10/30/20 - follows for mixed tremor as well as dyskinesia and seizure history, parkinsonism. EEG completed in May 2018 revealed a generalized spike and slow wave abnormality consistent with an underlying generalized seizure disorder. Patient had an MRI brain completed in October 2017 which was unremar kable. Patient failed VNS placement in the past, device was explanted. Presently on topiramate, Trileptal and Keppra. 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 (5) Hyperammonemia: Plan: - Chronic and long standing, continue to treat with cathartic agents (6) Parkinsonism: Plan: - Secondary to psych meds, continue benztropine (7) Hypomagnesemia: Plan: Replacement ordered Plan: PT/OT- 3x/week Case Management working on retirement placement given care needed at home. Patient gets 24 hours care from her (who is aging and has health issues of his own). This has been discussed by the PCP as well. [facility] process complete and awaiting bed availability. Is stable for D/C pending arrangements. Multiple referrals placed and awaiting determination. 03/19: patient requesting discharge to home but this has been discouraged as safety at home has been a concern. reports he believes he can care for her now with added support but patient's waiver services have been revoked since we have been pursuing placement to long-term care. With lack of outpatient staff available, she will not receive the care needed and home is not a safe discharge plan. Case mgmt working on this. 03/22: patient aware no support at home as waiver services revoked while in house. Agreeable for placement. CM working on this. 03/24: GHULAM Bourgeois discussed with patient's . At this time no options for returning home as he does not have support. While he would love to bring her home, he recognizes that she needs skilled care and placement. 03/26: Spoke w/ CM, not aware of any bed openings in [place] but will follow up. Admission and Anticipated Discharge Date Admission Date: January 31, 2021 Subjective Patient seen this morning on rounds. She is currently nodding off in bed. Says she didn't sleep well last night due to her neighbor keeping her up. Seems irritable. Requesting the medication for her mouth. Asking if the "facility in [place] has any beds yet." Review of Systems Review of Systems: CONSTITUTIONAL: Denies weight loss/gain, fever and chills, fatigue, malaise, generalized weakness. HEENT: Denies changes in vision and hearing. RESPIRATORY: Denies SOB, cough, wheezing. CV: Denies palpitations, CP, lower extremity edema, orthopnea, PND. GI: Denies abdominal pain, nausea, vomiting and diarrhea. : Denies dysuria and urinary frequency, urgency, hesitancy. MUSCULOSKELETAL: Denies myalgia and joint pain. SKIN: Denies rash and pruritus. NEUROLOGICAL: Denies headache, syncope, focal weakness, numbness, tingling. PSYCHIATRIC: Denies recent changes in mood. Denies anxiety and depression. Physical Exam Physical Exam: GENERAL: 55 yo WF. Well-developed, well-nourished. NAD. MOUTH: No obvious signs of thrush as far as pt would open her mouth for examination LUNGS: Clear to auscultation bilaterally. No accessory muscle use. No W/R/R. CARDIOVASCULAR: Regular rate and rhythm. No M/G/R. No JVD. ABDOMEN: Soft, non-tender and non-distended. No palpable masses. Bowel sounds normoactive x 4 quad. EXTREMITIES: No edema. Non-tender. Peripheral pulses +2/4. NEUROLOGIC: A&O x3. Head Tremor noted. SKIN: Warm, dry, intact. No rashes or lesions. Results & Data Results & Data ([facility]) Vital Signs (Past 12 Hours) Vital Signs Temp Pulse Resp BP Pulse Ox 03/26/21 07:30 36.7 C 64 20 146/82 H 97 03/25/21 21:57 37.0 C 64 17 121/69 95 PG Care Time/CCT Total # of Minutes Spent Total Time Spent with Patient: Total time spent is greater than 50% in coordination of care (as documented) at patient's floor/unit and/or counseling patient: Coding Level of Care Code 73611 Subseq Hosp Care Lvl 1 Diagnoses Cirrhosis K74.60 Diabetes mellitus E11.9 Seizure R56.9 Myoclonic seizure G40.409 Hyperammonemia E72.20 Parkinsonism G20 Hypomagnesemia E83.42
[2021-03-26] MEDS: LACTULOSE SYRUP 20 GM/30 ML UDC PO SCH ×3 (09:35→18:06)
[2021-03-26] MEDS: rifAXIMin 550 MG TABLET PO SCH ×2 (09:36→20:19)
[2021-03-26] MEDS: HYDROCORTISONE 10 MG TAB PO SCH ×2 (09:36→15:16)
[2021-03-26] MEDS: ESCITALOPRAM OXALATE 20 MG TAB PO SCH (09:36)
[2021-03-26] MEDS: FEXOFENADINE 60 MG TAB PO SCH (09:37)
[2021-03-26] MEDS: OXcarbazepine 150 MG TABLET PO SCH ×2 (09:37→20:17)
[2021-03-26] MEDS: FUROSEMIDE 20 MG TAB PO SCH (09:37)
[2021-03-26] MEDS: levETIRAcetam 500 MG TAB PO SCH ×2 (09:38→20:16)
[2021-03-26] MEDS: TOPIRAMATE 100 MG TAB PO SCH ×2 (09:38→20:17)
[2021-03-26] MEDS: PRAVASTATIN SOD 20 MG TAB PO SCH (09:38)
[2021-03-26] MEDS: MAGNESIUM OXIDE 400 MG TAB PO SCH ×2 (09:38→20:16)
[2021-03-26] MEDS: BENZTROPINE MESYLATE 1 MG TAB PO SCH ×3 (09:38→20:17)
[2021-03-26] MEDS: DICLOFENAC SOD 1% GEL 100 GM TUBE EXT SCH ×4 (09:39→20:19)
[2021-03-26] MEDS: rOPINIRole HCL 0.25 MG TABLET PO SCH ×2 (09:39→20:17)
[2021-03-26] MEDS: INSULIN GLARGINE SOLOSTAR 100 UNITS/ML 3 ML PEN SC SCH (09:41)
[2021-03-26] MEDS: INSULIN ASPART PER UNIT SC SCH ×4 (09:56→20:26)
[2021-03-26] MEDS: FAMOTIDINE 20 MG TAB PO SCH (20:18)
[2021-03-26] MEDS: MELATONIN 3 MG TAB PO SCH (20:20)
[2021-03-27] MEDS: LEVOTHYROXINE SODIUM 50 MCG TABLET PO SCH (05:21)
[2021-03-27] MEDS: PROMETHAZINE HCL 25 MG TAB PO PRN (06:34)
[2021-03-27] MEDS: LACTULOSE SYRUP 20 GM/30 ML UDC PO SCH ×3 (09:11→16:50)
[2021-03-27] MEDS: rifAXIMin 550 MG TABLET PO SCH ×2 (09:12→20:36)
[2021-03-27] MEDS: PRAVASTATIN SOD 20 MG TAB PO SCH (09:13)
[2021-03-27] MEDS: OXcarbazepine 150 MG TABLET PO SCH ×2 (09:13→20:36)
[2021-03-27] MEDS: FUROSEMIDE 20 MG TAB PO SCH (09:13)
[2021-03-27] MEDS: ESCITALOPRAM OXALATE 20 MG TAB PO SCH (09:13)
[2021-03-27] MEDS: BENZTROPINE MESYLATE 1 MG TAB PO SCH ×3 (09:14→20:37)
[2021-03-27] MEDS: FEXOFENADINE 60 MG TAB PO SCH (09:14)
[2021-03-27] MEDS: HYDROCORTISONE 10 MG TAB PO SCH ×2 (09:14→14:35)
[2021-03-27] MEDS: TOPIRAMATE 100 MG TAB PO SCH ×2 (09:14→20:35)
[2021-03-27] MEDS: rOPINIRole HCL 0.25 MG TABLET PO SCH ×2 (09:14→20:36)
[2021-03-27] MEDS: MAGNESIUM OXIDE 400 MG TAB PO SCH ×2 (09:15→20:35)
[2021-03-27] MEDS: levETIRAcetam 500 MG TAB PO SCH ×2 (09:15→20:35)
[2021-03-27] MEDS: DICLOFENAC SOD 1% GEL 100 GM TUBE EXT SCH ×4 (09:16→20:37)
[2021-03-27] MEDS: INSULIN ASPART PER UNIT SC SCH ×4 (09:25→20:43)
[2021-03-27] MEDS: INSULIN GLARGINE SOLOSTAR 100 UNITS/ML 3 ML PEN SC SCH (10:14)
--- NOTE | 2021-03-27 11:21 | Hospitalist Progress Note ---
Date of Service March 27, 2021 Assessment & Plan (1) Cirrhosis: Plan: No new issues have been occurring with this patient over the last days as we are waiting for placement. Cirrhosis secondary to STEVE w/ portal hypertension. Patient follows with gastroenterology, last seen by Dr. Toledo on 10/11/20. Patient had an EGD in June 2020 which showed no varices and mild portal-hypertensive gastropathy.HCV screening has been completed and is negative. AFP on 03/09/2019 = 2.6. INR =1.3. Elevation of AP and Tbili comparable to prior levels. - LFTs stable - Initially hospitalized w/ hepatic encephalopathy - at baseline mentation currently - Continue Lactulose, Rifaximin 550 mg p.o. twice daily--> patient averaging 4BM's/day - Pepcid 20mg po qHS - Last ammonia 03/03 74 but in normal range for patient - checked due to tiredness, otherwise her mentation has been baseline x multiple weeks - Patient to have US in 1 year for HCC surveillance and EGD in 3 years for variceal screening - not on aldactone. Was on in past and stopped. unsure as to why? -Last set of labs obtained 03/03/2021. Repeat labs drawn this AM. (2) Diabetes mellitus: Plan: Patient with type 2 diabetes, well controlled, long-term use of insulin. Last hemoglobin A1c=5.6 on 05/23/20. Patient follows with Endocrinology/Diabetes education. Last seen on 01/04/21. - Continue Lantus while here, Tresiba as outpt - ISS - Goal blood sugar 100 - 140 - Recommend annual A1c monitoring - Is on hydrocortisone BID for suspected adrenal insufficiency - endocrinology questions the validity of ACTH deficiency diagnosis and plan to repeat testing to confirm diagnosis as outpatient - Follow up with ict educator outpatient as instructed (3) Seizure: Plan: Seizure disorder: Patient with history of seizure. She follows with neurology, last seen on 10/30/20 - follows for mixed tremor as well as dyskinesia and seizure history, parkinsonism. EEG completed in May 2018 revealed a generalized spike and slow wave abnormality consistent with an underlying generalized seizure disorder. Patient had an MRI brain completed in October 2017 which was unremar kable. Patient failed VNS placement in the past, device was explanted. Presently on topiramate, Trileptal and Keppra. 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 (5) Hyperammonemia: Plan: - Chronic and long standing, continue to treat with cathartic agents (6) Parkinsonism: Plan: - Secondary to psych meds, continue benztropine (7) Hypomagnesemia: Plan: Replacement ordered Plan: PT/OT- 3x/week Case Management working on halfway placement given care needed at home. Patient gets 24 hours care from her (who is aging and has health issues of his own). This has been discussed by the PCP as well. [facility] process complete and awaiting bed availability. Is stable for D/C pending arrangements. Multiple referrals placed and awaiting determination. 03/19: patient requesting discharge to home but this has been discouraged as safety at home has been a concern. reports he believes he can care for her now with added support but patient's waiver services have been revoked since we have been pursuing placement to long-term care. With lack of outpatient staff available, she will not receive the care needed and home is not a safe discharge plan. Case mgmt working on this. 03/22: patient aware no support at home as waiver services revoked while in house. Agreeable for placement. CM working on this. 03/24: GHULAM Bourgeois discussed with patient's . At this time no options for returning home as he does not have support. While he would love to bring her home, he recognizes that she needs skilled care and placement. 03/27: Reviewed CM notes, apparently [place] [facility] may have a bed opening up "soon" according to documentation. No clear indication as to the time frame. I did reiterate to patient that her cannot care for her at home and has verbalized that to us so that is not a safe discharge plan. She seems irritated by that but had nothing further to say other than "I just have to get home." Admission and Anticipated Discharge Date Admission Date: January 31, 2021 Subjective Patient seen this morning on rounds. Currently in bed, reports only complaint is nausea. She is asking to speak to her pillowcase maker this morning. She is reiterating that her "wants her at home" and that she can get additional care when she gets home. She has no other questions/concerns at present. Review of Systems Review of Systems: CONSTITUTIONAL: Denies weight loss/gain, fever and chills, fatigue, malaise, generalized weakness. HEENT: Denies changes in vision and hearing. RESPIRATORY: Denies SOB, cough, wheezing. CV: Denies palpitations, CP, lower extremity edema, orthopnea, PND. GI: +nausea. Denies abdominal pain, vomiting and diarrhea. : Denies dysuria and urinary frequency, urgency, hesitancy. MUSCULOSKELETAL: Denies myalgia and joint pain. SKIN: Denies rash and pruritus. NEUROLOGICAL: Denies headache, syncope, focal weakness, numbness, tingling. PSYCHIATRIC: Denies recent changes in mood. Denies anxiety and depression. Physical Exam Physical Exam: GENERAL: 55 yo WF. Well-developed, well-nourished. NAD. LUNGS: Clear to auscultation bilaterally. No accessory muscle use. No W/R/R. CARDIOVASCULAR: Regular rate and rhythm. No M/G/R. No JVD. ABDOMEN: Soft, non-tender and non-distended. No palpable masses. Bowel sounds normoactive x 4 quad. EXTREMITIES: No edema. Non-tender. Peripheral pulses +2/4. NEUROLOGIC: A&O x3. Head Tremor noted. SKIN: Warm, dry, intact. No rashes or lesions. Results & Data Results & Data ([facility]) Vital Signs (Past 12 Hours) Vital Signs Temp Pulse Resp BP Pulse Ox 03/27/21 07:58 36.8 C 56 L 15 118/69 99 PG Care Time/CCT Total # of Minutes Spent Total Time Spent with Patient: Total time spent is greater than 50% in coordination of care (as documented) at patient's floor/unit and/or counseling patient: Coding Level of Care Code 57844 Subseq Hosp Care Lvl 1 Diagnoses Cirrhosis K74.60 Diabetes mellitus E11.9 Seizure R56.9 Myoclonic seizure G40.409 Hyperammonemia E72.20 Parkinsonism G20 Hypomagnesemia E83.42
[2021-03-27] MEDS: FAMOTIDINE 20 MG TAB PO SCH (20:35)
[2021-03-27] MEDS: MELATONIN 3 MG TAB PO SCH (20:40)
[2021-03-28] MEDS: LEVOTHYROXINE SODIUM 50 MCG TABLET PO SCH (04:24)
[2021-03-28] MEDS: TOPIRAMATE 100 MG TAB PO SCH ×2 (08:12→20:56)
[2021-03-28] MEDS: PRAVASTATIN SOD 20 MG TAB PO SCH (08:12)
[2021-03-28] MEDS: OXcarbazepine 150 MG TABLET PO SCH ×2 (08:12→20:58)
[2021-03-28] MEDS: LACTULOSE SYRUP 20 GM/30 ML UDC PO SCH ×3 (08:13→18:20)
[2021-03-28] MEDS: levETIRAcetam 500 MG TAB PO SCH ×2 (08:13→20:57)
[2021-03-28] MEDS: FUROSEMIDE 20 MG TAB PO SCH (08:13)
[2021-03-28] MEDS: BENZTROPINE MESYLATE 1 MG TAB PO SCH ×3 (08:13→20:58)
[2021-03-28] MEDS: rifAXIMin 550 MG TABLET PO SCH ×2 (08:13→20:57)
[2021-03-28] MEDS: HYDROCORTISONE 10 MG TAB PO SCH ×2 (08:13→16:52)
[2021-03-28] MEDS: FEXOFENADINE 60 MG TAB PO SCH (08:13)
[2021-03-28] MEDS: rOPINIRole HCL 0.25 MG TABLET PO SCH ×2 (08:13→20:58)
[2021-03-28] MEDS: ESCITALOPRAM OXALATE 20 MG TAB PO SCH (08:13)
[2021-03-28] MEDS: MAGNESIUM OXIDE 400 MG TAB PO SCH ×2 (08:14→20:56)
[2021-03-28] MEDS: DICLOFENAC SOD 1% GEL 100 GM TUBE EXT SCH ×4 (08:14→20:57)
[2021-03-28] MEDS: INSULIN ASPART PER UNIT SC SCH ×4 (10:04→21:52)
[2021-03-28] MEDS: INSULIN GLARGINE SOLOSTAR 100 UNITS/ML 3 ML PEN SC SCH (10:06)
--- NOTE | 2021-03-28 10:55 | Hospitalist Progress Note ---
Date of Service March 28, 2021 Assessment & Plan (1) Cirrhosis: Plan: No new issues have been occurring with this patient over the last days as we are waiting for placement. Cirrhosis secondary to STEVE w/ portal hypertension. Patient follows with gastroenterology, last seen by Dr. Toledo on 10/11/20. Patient had an EGD in June 2020 which showed no varices and mild portal-hypertensive gastropathy.HCV screening has been completed and is negative. AFP on 03/09/2019 = 2.6. INR =1.3. Elevation of AP and Tbili comparable to prior levels. - LFTs stable - Initially hospitalized w/ hepatic encephalopathy - at baseline mentation currently - Continue Lactulose, Rifaximin 550 mg p.o. twice daily--> patient averaging 4BM's/day - Pepcid 20mg po qHS - Last ammonia 03/03 74 but in normal range for patient - checked due to tiredness, otherwise her mentation has been baseline x multiple weeks - Patient to have US in 1 year for HCC surveillance and EGD in 3 years for variceal screening - not on aldactone. Was on in past and stopped. unsure as to why? -Last set of labs obtained 03/03/2021. Repeat labs drawn this AM. (2) Diabetes mellitus: Plan: Patient with type 2 diabetes, well controlled, long-term use of insulin. Last hemoglobin A1c=5.6 on 05/23/20. Patient follows with Endocrinology/Diabetes education. Last seen on 01/04/21. - Continue Lantus while here, Tresiba as outpt - ISS - Goal blood sugar 100 - 140 - Recommend annual A1c monitoring - Is on hydrocortisone BID for suspected adrenal insufficiency - endocrinology questions the validity of ACTH deficiency diagnosis and plan to repeat testing to confirm diagnosis as outpatient - Follow up with patient educator outpatient as instructed (3) Seizure: Plan: Seizure disorder: Patient with history of seizure. She follows with neurology, last seen on 10/30/20 - follows for mixed tremor as well as dyskinesia and seizure history, parkinsonism. EEG completed in May 2018 revealed a generalized spike and slow wave abnormality consistent with an underlying generalized seizure disorder. Patient had an MRI brain completed in October 2017 which was unremar kable. Patient failed VNS placement in the past, device was explanted. Presently on topiramate, Trileptal and Keppra. 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 (5) Hyperammonemia: Plan: - Chronic and long standing, continue to treat with cathartic agents (6) Parkinsonism: Plan: - Secondary to psych meds, continue benztropine (7) Hypomagnesemia: Plan: Replacement ordered (8) Osteoporosis: Plan: - Reviewed patient's chart extensively, found a note from endocrine that patient was rx'd PTH therapy for her osteoporosis - Another note from endocrine during a different hospitalization noted that patient was on Forteo daily - Will reorder (med is NF so would need to bring this in) -- Forteo 20 mcg SQ daily Plan: PT/OT- 3x/week Case Management working on long term care social worker placement given care needed at home. Patient gets 24 hours care from her (who is aging and has health issues of his own). This has been discussed by the PCP as well. [facility] process complete and awaiting bed availability. Is stable for D/C pending arrangements. Multiple referrals placed and awaiting determination. 03/19: patient requesting discharge to home but this has been discouraged as safety at home has been a concern. reports he believes he can care for her now with added support but patient's waiver services have been revoked since we have been pursuing placement to long-term care. With lack of outpatient staff available, she will not receive the care needed and home is not a safe discharge plan. Case mgmt working on this. 03/22: patient aware no support at home as waiver services revoked while in house. Agreeable for placement. CM working on this. 03/24: GHULAM Bourgeois discussed with patient's . At this time no options for returning home as he does not have support. While he would love to bring her home, he recognizes that she needs skilled care and placement. 03/27: Reviewed CM notes, apparently [place] may have a bed opening up "soon" according to documentation. No clear indication as to the time frame. I did reiterate to patient that her cannot care for her at home and has verbalized that to us so that is not a safe discharge plan. She seems irritated by that but had nothing further to say other than "I just have to get home." 03/28: Marcelle was extremely irritated today, swearing, stating that she doesn't want to be here for another 5 weeks. Wants more information on the possible bed openings at [place] and were that facility is located. I will have CM discuss this with her. Admission and Anticipated Discharge Date Admission Date: January 31, 2021 Subjective Patient seen this morning on rounds. Currently in bed. She is asking that her "bone medication" (Forteo) be ordered. She is also stating that she requested to be transferred to another hospital. Her reasoning is because she does not feel that she is getting the appropriate care here that she needs. She used the example that she is not getting therapy every day and also that the nurses did not help her take her pills this morning. She states she needs help taking her pills in applesauce and that her normally does this for her. She did sleep last night. She became extremely agitated during my visit and yelled that she does not want to stay here for another 5 weeks. Review of Systems Review of Systems: CONSTITUTIONAL: Denies weight loss/gain, fever and chills, fatigue, malaise, generalized weakness. HEENT: Denies changes in vision and hearing. RESPIRATORY: Denies SOB, cough, wheezing. CV: Denies palpitations, CP, lower extremity edema, orthopnea, PND. GI: +nausea. Denies abdominal pain, vomiting and diarrhea. : Denies dysuria and urinary frequency, urgency, hesitancy. MUSCULOSKELETAL: Denies myalgia and joint pain. SKIN: Denies rash and pruritus. NEUROLOGICAL: Denies headache, syncope, focal weakness, numbness, tingling. PSYCHIATRIC: irritable, agitated. Denies anxiety and depression. Physical Exam Physical Exam: GENERAL: 55 yo WF. Well-developed, well-nourished. NAD. LUNGS: Clear to auscultation bilaterally. No accessory muscle use. No W/R/R. CARDIOVASCULAR: Regular rate and rhythm. No M/G/R. No JVD. ABDOMEN: Soft, non-tender and non-distended. No palpable masses. Bowel sounds normoactive x 4 quad. EXTREMITIES: No edema. Non-tender. Peripheral pulses +2/4. NEUROLOGIC: A&O x3. Head Tremor noted. SKIN: Warm, dry, intact. No rashes or lesions. Results & Data Results & Data ([facility]) Vital Signs (Past 12 Hours) Vital Signs Temp Pulse Resp BP Pulse Ox 03/28/21 07:04 36.7 C 57 L 18 129/75 99 PG Care Time/CCT Total # of Minutes Spent Total Time Spent with Patient: Total time spent is greater than 50% in coordination of care (as documented) at patient's floor/unit and/or counseling patient: Coding Level of Care Code 92063 Subseq Hosp Care Lvl 1 Diagnoses Cirrhosis K74.60 Diabetes mellitus E11.9 Seizure R56.9 Myoclonic seizure G40.409 Hyperammonemia E72.20 Parkinsonism G20 Hypomagnesemia E83.42 Osteoporosis M81.0
[2021-03-28] MEDS: FAMOTIDINE 20 MG TAB PO SCH (20:56)
[2021-03-28] MEDS: [UNRECOGNIZED DRUG - REMARK] SQ SCH (21:00)
[2021-03-28] MEDS: MELATONIN 3 MG TAB PO SCH (21:00)
[2021-03-29] MEDS: LEVOTHYROXINE SODIUM 50 MCG TABLET PO SCH (04:34)
[2021-03-29] MEDS: HYDROCORTISONE 10 MG TAB PO SCH ×2 (09:03→14:10)
[2021-03-29] MEDS: FUROSEMIDE 20 MG TAB PO SCH (09:04)
[2021-03-29] MEDS: BENZTROPINE MESYLATE 1 MG TAB PO SCH ×3 (09:04→20:47)
[2021-03-29] MEDS: LACTULOSE SYRUP 20 GM/30 ML UDC PO SCH ×3 (09:04→17:39)
[2021-03-29] MEDS: FEXOFENADINE 60 MG TAB PO SCH (09:05)
[2021-03-29] MEDS: ESCITALOPRAM OXALATE 20 MG TAB PO SCH (09:05)
[2021-03-29] MEDS: rifAXIMin 550 MG TABLET PO SCH ×2 (09:05→20:49)
[2021-03-29] MEDS: PRAVASTATIN SOD 20 MG TAB PO SCH (09:05)
[2021-03-29] MEDS: levETIRAcetam 500 MG TAB PO SCH ×2 (09:05→20:48)
[2021-03-29] MEDS: TOPIRAMATE 100 MG TAB PO SCH ×2 (09:06→20:47)
[2021-03-29] MEDS: MAGNESIUM OXIDE 400 MG TAB PO SCH ×2 (09:06→20:47)
[2021-03-29] MEDS: OXcarbazepine 150 MG TABLET PO SCH ×2 (09:07→20:48)
[2021-03-29] MEDS: rOPINIRole HCL 0.25 MG TABLET PO SCH ×2 (09:07→20:46)
[2021-03-29] MEDS: DICLOFENAC SOD 1% GEL 100 GM TUBE EXT SCH ×4 (09:08→20:50)
[2021-03-29] MEDS: INSULIN GLARGINE SOLOSTAR 100 UNITS/ML 3 ML PEN SC SCH (09:13)
[2021-03-29] MEDS: INSULIN ASPART PER UNIT SC SCH ×4 (09:16→21:11)
[2021-03-29] MEDS: oxyCODONE HCL IR 5 MG TAB (IMMEDIATE RELEASE) PO PRN ×2 (11:37→19:28)
--- NOTE | 2021-03-29 12:02 | Hospitalist Progress Note ---
Date of Service March 29, 2021 Assessment & Plan (1) Cirrhosis: Plan: No new issues have been occurring with this patient over the last days as we are waiting for placement. Cirrhosis secondary to STEVE w/ portal hypertension. Patient follows with gastroenterology, last seen by Dr. Toledo on 10/11/20. Patient had an EGD in June 2020 which showed no varices and mild portal-hypertensive gastropathy.HCV screening has been completed and is negative. AFP on 03/09/2019 = 2.6. INR =1.3. Elevation of AP and Tbili comparable to prior levels. - LFTs stable - Initially hospitalized w/ hepatic encephalopathy - at baseline mentation currently - Continue Lactulose, Rifaximin 550 mg p.o. twice daily--> patient averaging 4BM's/day - Pepcid 20mg po qHS - Last ammonia 03/03 74 but in normal range for patient - checked due to tiredness, otherwise her mentation has been baseline x multiple weeks - Patient to have US in 1 year for HCC surveillance and EGD in 3 years for variceal screening - not on aldactone. Was on in past and stopped. unsure as to why? -Last set of labs obtained 03/03/2021. Repeat labs drawn this AM. (2) Diabetes mellitus: Plan: Patient with type 2 diabetes, well controlled, long-term use of insulin. Last hemoglobin A1c=5.6 on 05/23/20. Patient follows with Endocrinology/Diabetes education. Last seen on 01/04/21. - Continue Lantus while here, Tresiba as outpt - ISS - Goal blood sugar 100 - 140 - Recommend annual A1c monitoring - Is on hydrocortisone BID for suspected adrenal insufficiency - endocrinology questions the validity of ACTH deficiency diagnosis and plan to repeat testing to confirm diagnosis as outpatient - Follow up with visual educator outpatient as instructed (3) Seizure: Plan: Seizure disorder: Patient with history of seizure. She follows with neurology, last seen on 10/30/20 - follows for mixed tremor as well as dyskinesia and seizure history, parkinsonism. EEG completed in May 2018 revealed a generalized spike and slow wave abnormality consistent with an underlying generalized seizure disorder. Patient had an MRI brain completed in October 2017 which was unremar kable. Patient failed VNS placement in the past, device was explanted. Presently on topiramate, Trileptal and Keppra. 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 (5) Hyperammonemia: Plan: - Chronic and long standing, continue to treat with cathartic agents (6) Parkinsonism: Plan: - Secondary to psych meds, continue benztropine (7) Hypomagnesemia: Plan: - Replaced/resolved (8) Osteoporosis: Plan: - Reviewed patient's chart extensively, found a note from endocrine that patient was rx'd PTH therapy for her osteoporosis - Another note from endocrine during a different hospitalization noted that patient was on Forteo daily - Reordered her Forteo (med is NF so would need to bring this in) (9) Left foot pain: Plan: - etiology? - xray L foot - Ordered OxyIR 5mg q8h prn pain - Will on 03/30 Plan: PT/OT- 3x/week Case Management working on custodial placement given care needed at home. Patient gets 24 hours care from her (who is aging and has health issues of his own). This has been discussed by the PCP as well. [facility] process complete and awaiting bed availability. Is stable for D/C pending arrangements. Multiple referrals placed and awaiting determination. 03/19: patient requesting discharge to home but this has been discouraged as safety at home has been a concern. reports he believes he can care for her now with added support but patient's waiver services have been revoked since we have been pursuing placement to long-term care. With lack of outpatient staff available, she will not receive the care needed and home is not a safe discharge plan. Case mgmt working on this. 03/22: patient aware no support at home as waiver services revoked while in house. Agreeable for placement. CM working on this. 03/24: GHULAM Bourgeois discussed with patient's . At this time no options for returning home as he does not have support. While he would love to bring her home, he recognizes that she needs skilled care and placement. 03/27: Reviewed CM notes, apparently [place] may have a bed opening up "soon" according to documentation. No clear indication as to the time frame. I did reiterate to patient that her cannot care for her at home and has verbalized that to us so that is not a safe discharge plan. She seems irritated by that but had nothing further to say other than "I just have to get home." 03/28: Marcelle was extremely irritated today, swearing, stating that she doesn't want to be here for another 5 weeks. Wants more information on the possible bed openings at [place] and were that facility is located. I will have CM discuss this with her. Admission and Anticipated Discharge Date Admission Date: January 31, 2021 Subjective Patient seen this morning on rounds. Currently just assisted back to bed by nursing after sitting in chair. Participated in therapy this morning. She is c/o left foot pain and apparently told RN that she wants Oxycodone IR 10mg. That is her only complaint this morning. Denies any past or present injury to the foot. Review of Systems Review of Systems: CONSTITUTIONAL: Denies weight loss/gain, fever and chills, fatigue, malaise, generalized weakness. HEENT: Denies changes in vision and hearing. RESPIRATORY: Denies SOB, cough, wheezing. CV: Denies palpitations, CP, lower extremity edema, orthopnea, PND. GI: +nausea. Denies abdominal pain, vomiting and diarrhea. : Denies dysuria and urinary frequency, urgency, hesitancy. MUSCULOSKELETAL: +left foot pain. Denies myalgia and joint pain. SKIN: Denies rash and pruritus. NEUROLOGICAL: Denies headache, syncope, focal weakness, numbness, tingling. PSYCHIATRIC: irritable, agitated. Denies anxiety and depression. Physical Exam Physical Exam: GENERAL: 55 yo WF. Well-developed, well-nourished. NAD. LUNGS: Clear to auscultation bilaterally. No accessory muscle use. No W/R/R. CARDIOVASCULAR: Regular rate and rhythm. No M/G/R. No JVD. ABDOMEN: Soft, non-tender and non-distended. No palpable masses. Bowel sounds normoactive x 4 quad. EXTREMITIES: No edema. Non-tender. Peripheral pulses +2/4. M/S: tenderness to lateral aspect of L foot. No obvious swelling, bruising. NEUROLOGIC: A&O x3. Head Tremor noted. SKIN: Warm, dry, intact. No rashes or lesions. Results & Data Results & Data ([facility]) Vital Signs (Past 12 Hours) Vital Signs Temp Pulse Resp BP Pulse Ox 03/29/21 06:50 36.9 C 64 18 99/54 L 96 PG Care Time/CCT Total # of Minutes Spent Total Time Spent with Patient: Total time spent is greater than 50% in coordination of care (as documented) at patient's floor/unit and/or counseling patient: Coding Level of Care Code 13117 Subseq Hosp Care Lvl 2 Diagnoses Cirrhosis K74.60 Diabetes mellitus E11.9 Seizure R56.9 Myoclonic seizure G40.409 Hyperammonemia E72.20 Parkinsonism G20 Hypomagnesemia E83.42 Osteoporosis M81.0 Left foot pain M79.672
--- NOTE | 2021-03-29 12:55 | XRay Report ---
XR foot LT min 3V routine CLINICAL HISTORY: left foot pain. COMPARISON STUDY: No previous studies for comparison. TECHNIQUE: 3 left ankle views FINDINGS: Bones: Bones are osteopenic. There is no evidence for an acute fracture or dislocation. There is no l ytic or blastic lesion. Joints: There is a pes cavus deformity along with hammertoe deformities present involving the toes. T here is moderate joint space narrowing present involving the IP joints, MTP joints and intertarsal swapna int spaces. No erosive changes are seen. Soft tissues: There is no focal soft tissue abnormality. There is no radiopaque foreign body. IMPRESSION: Osteopenia with no acute osseous pathology. Pes cavus deformity and hammertoe deformities with diffuse joint space narrowing. ACT 112: Negative or not required by law. Electronically signed by: Rick Meza M.D. 03/29/2021 12:53 PM
[2021-03-29] MEDS: FAMOTIDINE 20 MG TAB PO SCH (20:50)
[2021-03-29] MEDS: MELATONIN 3 MG TAB PO SCH (21:06)
[2021-03-29] MEDS: [UNRECOGNIZED DRUG - REMARK] SQ SCH (21:10)
[2021-03-30] MEDS: LEVOTHYROXINE SODIUM 50 MCG TABLET PO SCH (05:13)
[2021-03-30] MEDS: oxyCODONE HCL IR 5 MG TAB (IMMEDIATE RELEASE) PO PRN (05:16)
[2021-03-30] MEDS: LACTULOSE SYRUP 20 GM/30 ML UDC PO SCH ×3 (09:03→17:04)
[2021-03-30] MEDS: ESCITALOPRAM OXALATE 20 MG TAB PO SCH (09:04)
[2021-03-30] MEDS: HYDROCORTISONE 10 MG TAB PO SCH ×2 (09:04→13:17)
[2021-03-30] MEDS: rifAXIMin 550 MG TABLET PO SCH ×2 (09:04→22:30)
[2021-03-30] MEDS: MAGNESIUM OXIDE 400 MG TAB PO SCH ×2 (09:04→22:49)
[2021-03-30] MEDS: rOPINIRole HCL 0.25 MG TABLET PO SCH ×2 (09:04→22:48)
[2021-03-30] MEDS: PRAVASTATIN SOD 20 MG TAB PO SCH (09:04)
[2021-03-30] MEDS: TOPIRAMATE 100 MG TAB PO SCH ×2 (09:05→22:50)
[2021-03-30] MEDS: FUROSEMIDE 20 MG TAB PO SCH (09:05)
[2021-03-30] MEDS: levETIRAcetam 500 MG TAB PO SCH ×2 (09:05→22:25)
[2021-03-30] MEDS: FEXOFENADINE 60 MG TAB PO SCH (09:05)
[2021-03-30] MEDS: BENZTROPINE MESYLATE 1 MG TAB PO SCH ×3 (09:06→22:49)
[2021-03-30] MEDS: OXcarbazepine 150 MG TABLET PO SCH ×2 (09:06→22:26)
[2021-03-30] MEDS: DICLOFENAC SOD 1% GEL 100 GM TUBE EXT SCH ×4 (09:06→21:15)
[2021-03-30] MEDS: INSULIN ASPART PER UNIT SC SCH ×4 (09:20→21:11)
[2021-03-30] MEDS: INSULIN GLARGINE SOLOSTAR 100 UNITS/ML 3 ML PEN SC SCH (09:20)
--- NOTE | 2021-03-30 17:57 | Hospitalist Progress Note ---
Date of Service March 30, 2021 Assessment & Plan (1) Cirrhosis: Plan: No new issues have been occurring with this patient over the last days as we are waiting for placement. Cirrhosis secondary to STEVE w/ portal hypertension. Patient follows with gastroenterology, last seen by Dr. Toledo on 10/11/20. Patient had an EGD in June 2020 which showed no varices and mild portal-hypertensive gastropathy.HCV screening has been completed and is negative. AFP on 03/09/2019 = 2.6. INR =1.3. Elevation of AP and Tbili comparable to prior levels. - LFTs stable - Initially hospitalized w/ hepatic encephalopathy - at baseline mentation currently - Continue Lactulose, Rifaximin 550 mg p.o. twice daily--> patient averaging 4BM's/day - Pepcid 20mg po qHS - Last ammonia 03/03 74 but in normal range for patient - checked due to tiredness, otherwise her mentation has been baseline x multiple weeks - Patient to have US in 1 year for HCC surveillance and EGD in 3 years for variceal screening - not on aldactone. Was on in past and stopped. unsure as to why? -- Has had multiple admission off diuretics and no recent Rx in outpatient pharmacy review. 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 - Periodically assess labs (2) Diabetes mellitus: Plan: Patient with type 2 diabetes, well controlled, long-term use of insulin. Last hemoglobin A1c=5.6 on 05/23/20. Patient follows with Endocrinology/Diabetes education. Last seen on 01/04/21. - Continue Lantus while here, Tresiba as outpt - ISS - Goal blood sugar 100 - 140 - Recommend annual A1c monitoring - Is on hydrocortisone BID for suspected adrenal insufficiency - endocrinology questions the validity of ACTH deficiency diagnosis and plan to repeat testing to confirm diagnosis as outpatient - Follow up with clinical systems educator outpatient as instructed (3) Seizure: Plan: Seizure disorder: Patient with history of seizure. She follows with neurology, last seen on 10/30/20 - follows for mixed tremor as well as dyskinesia and seizure history, parkinsonism. EEG completed in May 2018 revealed a generalized spike and slow wave abnormality consistent with an underlying generalized seizure disorder. Patient had an MRI brain completed in October 2017 which was unremarkable. Patient failed VNS placement in the past, device was explanted. Presently on topiramate, Trileptal and Keppra. 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 (5) Hyperammonemia: Plan: - Chronic and long standing, continue to treat with cathartic agents (6) Parkinsonism: Plan: - Secondary to psych meds, continue benztropine (7) Hypomagnesemia: Plan: - Replaced/resolved (8) Osteoporosis: Plan: - Reviewed patient's chart extensively, found a note from endocrine that patient was rx'd PTH therapy for her osteoporosis - Another note from endocrine during a different hospitalization noted that patient was on Forteo daily - Reordered her Forteo (med is [facility] so would need to bring this in) - he did bring this in earlier in hospital stay but uncertain if has anymore to bring in? (9) Left foot pain: Plan: - Discussed with patient and and he reports she has complained of this for awhile. Suspect this is related to her deformity and likely contractures of the foot; L foot is more medially rotated and also having more plantar deviation and suspect this is due to her worsening ability to ambulate and more sedentary lifestyle. - XR - pes cavus deformity and hammertoe deformities with diffuse joint space narrowing - Ordered OxyIR 5mg q8h x 1 day; would avoid opiates when possible - Will order heat and alternate with ice for pain - would benefit from gentle stretching as typically conservative approaches are warratned initially - Can consult orthotics however would be unable to come over weekend - may has some insole or braces? Plan: PT/OT- 3x/week Case Management working on [facility] placement given care needed at home. Patient gets 24 hours care from her (who is aging and has health issues of his own). This has been discussed by the PCP as well. [facility] process complete and awaiting bed availability. Is stable for D/C pending arrangements. Multiple referrals placed and awaiting determination. 03/19: patient requesting discharge to home but this has been discouraged as safety at home has been a concern. reports he believes he can care for her now with added support but patient's waiver services have been revoked since we have been pursuing placement to long-term care. With lack of outpatient staff available, she will not receive the care needed and home is not a safe discharge plan. Case mgmt working on this. 03/22: patient aware no support at home as waiver services revoked while in house. Agreeable for placement. CM working on this. 03/24: GHULAM Bourgeois discussed with patient's . At this time no options for returning home as he does not have support. While he would love to bring her home, he recognizes that she needs skilled care and placement. 03/27: Reviewed CM notes, apparently [facility] may have a bed opening up "soon" according to documentation. No clear indication as to the time frame. I did reiterate to patient that her cannot care for her at home and has verbalized that to us so that is not a safe discharge plan. She seems irritated by that but had nothing further to say other than "I just have to get home." 03/28: Marcelle was extremely irritated today, swearing, stating that she doesn't want to be here for another 5 weeks. Wants more information on the possible bed openings at [facility] and were that facility is located. CM to discuss this with her. Discussed with patient and at bedside that referrals are still pending; still reports he is unable to take care of her at home without support Admission and Anticipated Discharge Date Admission Date: January 31, 2021 Subjective Patient is rather irritable today. Mostly complaining about her fish not being cut up and stuck to her dentures. Also wants to know how much a transfer board costs. Also wants to know the number for [facility]. She can easily be redirected however fixates on these things. Asks if she could just leave for a bit of time and come back. Explained that we can only do that if she is discharged which will stop the process of rehab. continues to state he is unable to safely take care of her by himself at home. She would like to just go to [facility]. She continues to have L ankle pain that is rather chronic. She wants to have higher doses of narcotics which she previously was on frequent narcotics previously. Also explained goal to avoid given her liver and mentation. She is agreeable to try some eat and ice. She asked about a boot but the issue seems to be more the contracture of her feet likely due to poor mobility over an extended period of time. Review of Systems Review of Systems: All systems reviewed & are unremarkable except as noted in Subjective Physical Exam 2 Physical Exam: PHYSICAL EXAM General Appearance: Frail; in NAD who is A&O x 3 HEENT: Head is normocephalic/atraumatic; Hearing grossly intact; anicteric sclera Neck: Supple; Trachea midline; Neg JVD Heart: RRR with no M/G/R Lungs: CTA in all lung dyer bilaterally; Respirations unlabored; Neg accessory muscle use Abdomen: Soft, non-tender, non-distended; Positive BS x 4 quadrants Extremities: No swelling or erythema of ankles; does has medially rotated and downward placement of ankle/foot Neurological: Speech clear; +tremor; + mild choreiform movements of head during this visit Psychiatric:Irritable Skin: Normal Color; Warm/Dry Results & Data Results & Data ([facility]) Vital Signs (Past 12 Hours) Vital Signs Temp Pulse Resp BP Pulse Ox 03/30/21 15:22 36.8 C 67 20 114/69 96 03/30/21 07:04 36.9 C 67 20 144/80 H 99 PG Care Time/CCT Total # of Minutes Spent Total Time Spent with Patient: Total time spent is greater than 50% in coordination of care (as documented) at patient's floor/unit and/or counseling patient: Coding Level of Care Code 44051 Subseq Hosp Care Lvl 2 Diagnoses Cirrhosis K74.60 Diabetes mellitus E11.9 Seizure R56.9 Myoclonic seizure G40.409 Hyperammonemia E72.20 Parkinsonism G20 Hypomagnesemia E83.42 Osteoporosis M81.0 Left foot pain M79.672
[2021-03-30] MEDS: [UNRECOGNIZED DRUG - REMARK] SQ SCH (21:13)
[2021-03-30] MEDS: MELATONIN 3 MG TAB PO SCH (22:48)
[2021-03-30] MEDS: FAMOTIDINE 20 MG TAB PO SCH (22:49)
[2021-03-31] MEDS: PROMETHAZINE HCL 25 MG TAB PO PRN (03:48)
[2021-03-31] MEDS: LEVOTHYROXINE SODIUM 50 MCG TABLET PO SCH (06:14)
[2021-03-31] MEDS: INSULIN ASPART PER UNIT SC SCH ×4 (09:36→21:10)
[2021-03-31] MEDS: BENZTROPINE MESYLATE 1 MG TAB PO SCH ×3 (09:44→21:05)
[2021-03-31] MEDS: DICLOFENAC SOD 1% GEL 100 GM TUBE EXT SCH ×4 (09:44→21:05)
[2021-03-31] MEDS: FEXOFENADINE 60 MG TAB PO SCH (09:45)
[2021-03-31] MEDS: TOPIRAMATE 100 MG TAB PO SCH ×2 (09:45→21:05)
[2021-03-31] MEDS: HYDROCORTISONE 10 MG TAB PO SCH ×2 (09:45→16:27)
[2021-03-31] MEDS: rOPINIRole HCL 0.25 MG TABLET PO SCH ×2 (09:45→21:06)
[2021-03-31] MEDS: rifAXIMin 550 MG TABLET PO SCH ×2 (09:45→21:05)
[2021-03-31] MEDS: levETIRAcetam 500 MG TAB PO SCH ×2 (09:47→21:05)
[2021-03-31] MEDS: ESCITALOPRAM OXALATE 20 MG TAB PO SCH (09:47)
[2021-03-31] MEDS: LACTULOSE SYRUP 20 GM/30 ML UDC PO SCH ×3 (09:47→18:06)
[2021-03-31] MEDS: FUROSEMIDE 20 MG TAB PO SCH (09:47)
[2021-03-31] MEDS: OXcarbazepine 150 MG TABLET PO SCH ×2 (09:48→21:04)
[2021-03-31] MEDS: MAGNESIUM OXIDE 400 MG TAB PO SCH ×2 (09:48→21:06)
[2021-03-31] MEDS: INSULIN GLARGINE SOLOSTAR 100 UNITS/ML 3 ML PEN SC SCH (09:49)
[2021-03-31] MEDS: PRAVASTATIN SOD 20 MG TAB PO SCH (09:49)
[2021-03-31] MEDS: DOCUSATE SODIUM/SENNA 50/8.6MG TAB PO SCH (12:00)
--- NOTE | 2021-03-31 12:43 | Hospitalist Progress Note ---
Date of Service March 31, 2021 Assessment & Plan (1) Cirrhosis: Plan: No new issues have been occurring with this patient over the last days as we are waiting for placement. Cirrhosis secondary to STEVE w/ portal hypertension. Patient follows with gastroenterology, last seen by Dr. Toledo on 10/11/20. Patient had an EGD in June 2020 which showed no varices and mild portal-hypertensive gastropathy.HCV screening has been completed and is negative. AFP on 03/09/2019 = 2.6. INR =1.3. Elevation of AP and Tbili comparable to prior levels. - LFTs stable - Initially hospitalized w/ hepatic encephalopathy - at baseline mentation currently - Continue Lactulose, Rifaximin 550 mg p.o. twice daily--> patient averaging 4BM's/day - Pepcid 20mg po qHS - Last ammonia 03/03 74 but in normal range for patient - checked due to tiredness, otherwise her mentation has been baseline x multiple weeks - Patient to have US in 1 year for HCC surveillance and EGD in 3 years for variceal screening - not on aldactone. Was on in past and stopped. unsure as to why? -- Has had multiple admission off diuretics and no recent Rx in outpatient pharmacy review. 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 - Periodically assess labs (2) Diabetes mellitus: Plan: Patient with type 2 diabetes, well controlled, long-term use of insulin. Last hemoglobin A1c=5.6 on 05/23/20. Patient follows with Endocrinology/Diabetes education. Last seen on 01/04/21. - Continue Lantus while here, Tresiba as outpt - ISS - Goal blood sugar 100 - 140 - Recommend annual A1c monitoring - Is on hydrocortisone BID for suspected adrenal insufficiency - endocrinology questions the validity of ACTH deficiency diagnosis and plan to repeat testing to confirm diagnosis as outpatient - Follow up with clinical nurse educator outpatient as instructed (3) Seizure: Plan: Seizure disorder: Patient with history of seizure. She follows with neurology, last seen on 10/30/20 - follows for mixed tremor as well as dyskinesia and seizure history, parkinsonism. EEG completed in May 2018 revealed a generalized spike and slow wave abnormality consistent with an underlying generalized seizure disorder. Patient had an MRI brain completed in October 2017 which was unremarkable. Patient failed VNS placement in the past, device was explanted. Presently on topiramate, Trileptal and Keppra. 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 (5) Hyperammonemia: Plan: - Chronic and long standing, continue to treat with cathartic agents (6) Parkinsonism: Plan: - Secondary to psych meds, continue benztropine (7) Hypomagnesemia: Plan: - Replaced/resolved (8) Osteoporosis: Plan: - Reviewed patient's chart extensively, found a note from endocrine that patient was rx'd PTH therapy for her osteoporosis - Another note from endocrine during a different hospitalization noted that patient was on Forteo daily - Reordered her Forteo (med is NF so would need to bring this in) - he did bring this in earlier in hospital stay but uncertain if has anymore to bring in? (9) Left foot pain: Plan: - Discussed with patient and and he reports she has complained of this for awhile. Suspect this is related to her deformity and likely contractures of the foot; L foot is more medially rotated and also having more plantar deviation and suspect this is due to her worsening ability to ambulate and more sedentary lifestyle. - XR - pes cavus deformity and hammertoe deformities with diffuse joint space narrowing - OxyIR 5mg q8h x 1 day ordered previously (no longer on order); would avoid opiates when possible - Will order heat and alternate with ice for pain - would benefit from gentle stretching as typically conservative approaches are warranted initially - Can consult orthotics however would be unable to come over weekend - may has some insole or braces?; maybe podiatry could assist? Plan: PT/OT- 3x/week Case Management working on long term acute care registered nurse placement given care needed at home. Patient gets 24 hours care from her (who is aging and has health issues of his own). This has been discussed by the PCP as well. [facility] process complete and awaiting bed availability. Is stable for D/C pending arrangements. Multiple referrals placed and awaiting determination. 03/19: patient requesting discharge to home but this has been discouraged as safety at home has been a concern. reports he believes he can care for her now with added support but patient's waiver services have been revoked since we have been pursuing placement to long-term care. With lack of outpatient staff available, she will not receive the care needed and home is not a safe discharge plan. Case mgmt working on this. 03/22: patient aware no support at home as waiver services revoked while in house. Agreeable for placement. CM working on this. 03/24: GHULAM Bourgeois discussed with patient's . At this time no options for returning home as he does not have support. While he would love to bring her home, he recognizes that she needs skilled care and placement. 03/27: Reviewed CM notes, apparently [facility] may have a bed opening up "soon" according to documentation. No clear indication as to the time frame. I did reiterate to patient that her cannot care for her at home and has verbalized that to us so that is not a safe discharge plan. She seems irritated by that but had nothing further to say other than "I just have to get home." 03/28: Marcelle was extremely irritated today, swearing, stating that she doesn't want to be here for another 5 weeks. Wants more information on the possible bed openings at [place] and were that facility is located. CM to discuss this with her. Discussed with patient and at bedside that referrals are still pending; still reports he is unable to take care of her at home without support Admission and Anticipated Discharge Date Admission Date: January 31, 2021 Subjective No acute events overnight. Verbalizes no new complaints. Doesn't mention foot pain unless directly asked. Said she tried some heat to it but didnt report any relief. Asks if she can have a boot however when trying to turn her foot she was reporting pain so likely trying to straighten it to get in a boot will be uncomfortable. Tolerating her diet today. No issues with her dentures and food getting stuck so far today. She reports she is feeling a bit constipated and did not move her bowels today or yesterday. Will given Docusate/Senna. Review of Systems Review of Systems: All systems reviewed & are unremarkable except as noted in Subjective Physical Exam Physical Exam: PHYSICAL EXAM General Appearance: Frail; in NAD who is A&O x 3 HEENT: Head is normocephalic/atraumatic; Hearing grossly intact; anicteric sclera Neck: Supple; Trachea midline; Neg JVD Heart: RRR with no M/G/R Lungs: CTA in all lung dyer bilaterally; Respirations unlabored; Neg accessory muscle use Abdomen: Soft, non-tender, non-distended; Positive BS x 4 quadrants Extremities: No swelling or erythema of ankles; does have medially rotated and downward placement of ankle/foot bilaterally Neurological: Speech clear; + mild choreiform movements of head during this visit Psychiatric:Irritable Skin: Normal Color; Warm/Dry Results & Data Results & Data ([facility]) Vital Signs (Past 12 Hours) Vital Signs Temp Pulse Resp BP BP Pulse Ox 03/31/21 09:52 64 118/68 03/31/21 07:24 36.8 C 84 16 99/56 L 94 PG Care Time/CCT Total # of Minutes Spent Total Time Spent with Patient: Total time spent is greater than 50% in coordination of care (as documented) at patient's floor/unit and/or counseling patient: Coding Level of Care Code 13270 Subseq Hosp Care Lvl 2 Diagnoses Cirrhosis K74.60 Diabetes mellitus E11.9 Seizure R56.9 Myoclonic seizure G40.409 Hyperammonemia E72.20 Parkinsonism G20 Hypomagnesemia E83.42 Osteoporosis M81.0 Left foot pain M79.672
[2021-03-31] MEDS: MELATONIN 3 MG TAB PO SCH (21:04)
[2021-03-31] MEDS: FAMOTIDINE 20 MG TAB PO SCH (21:05)
[2021-03-31] MEDS: [UNRECOGNIZED DRUG - REMARK] SQ SCH (21:08)
[2021-04-01] MEDS: LEVOTHYROXINE SODIUM 50 MCG TABLET PO SCH (04:58)
[2021-04-01] MEDS: INSULIN ASPART PER UNIT SC SCH ×4 (09:26→20:49)
[2021-04-01] MEDS: INSULIN GLARGINE SOLOSTAR 100 UNITS/ML 3 ML PEN SC SCH (09:27)
[2021-04-01] MEDS: LACTULOSE SYRUP 20 GM/30 ML UDC PO SCH ×3 (09:34→18:01)
[2021-04-01] MEDS: DOCUSATE SODIUM/SENNA 50/8.6MG TAB PO SCH (09:35)
[2021-04-01] MEDS: FUROSEMIDE 20 MG TAB PO SCH (09:35)
[2021-04-01] MEDS: HYDROCORTISONE 10 MG TAB PO SCH ×2 (09:35→16:12)
[2021-04-01] MEDS: DICLOFENAC SOD 1% GEL 100 GM TUBE EXT SCH ×4 (09:35→20:38)
[2021-04-01] MEDS: OXcarbazepine 150 MG TABLET PO SCH ×2 (09:36→20:36)
[2021-04-01] MEDS: FEXOFENADINE 60 MG TAB PO SCH (09:37)
[2021-04-01] MEDS: rifAXIMin 550 MG TABLET PO SCH ×2 (09:37→22:13)
[2021-04-01] MEDS: PRAVASTATIN SOD 20 MG TAB PO SCH (09:38)
[2021-04-01] MEDS: MAGNESIUM OXIDE 400 MG TAB PO SCH ×2 (09:38→20:38)
[2021-04-01] MEDS: levETIRAcetam 500 MG TAB PO SCH ×2 (09:38→20:38)
[2021-04-01] MEDS: BENZTROPINE MESYLATE 1 MG TAB PO SCH ×3 (09:38→20:39)
[2021-04-01] MEDS: TOPIRAMATE 100 MG TAB PO SCH ×2 (09:39→22:13)
[2021-04-01] MEDS: ESCITALOPRAM OXALATE 20 MG TAB PO SCH (09:39)
[2021-04-01] MEDS: rOPINIRole HCL 0.25 MG TABLET PO SCH ×2 (09:40→20:37)
[2021-04-01] MEDS ORDERED: ACETAMINOPHEN 500 MG TAB PO PRN (11:24)
--- NOTE | 2021-04-01 11:29 | Hospitalist Progress Note ---
Date of Service April 01, 2021 Assessment & Plan (1) Cirrhosis: Plan: No new issues have been occurring with this patient over the last days as we are waiting for placement. Cirrhosis secondary to STEVE w/ portal hypertension. Patient follows with gastroenterology, last seen by Dr. Toledo on 10/11/20. Patient had an EGD in June 2020 which showed no varices and mild portal-hypertensive gastropathy.HCV screening has been completed and is negative. AFP on 03/09/2019 = 2.6. INR =1.3. Elevation of AP and Tbili comparable to prior levels. - LFTs stable - Initially hospitalized w/ hepatic encephalopathy - at baseline mentation currently - Continue Lactulose, Rifaximin 550 mg p.o. twice daily--> patient averaging 4BM's/day but now hasn't had BM since taking narcotic meds added Senna/Docusate for a few days but may need to increase Lactulose - Pepcid 20mg po qHS - Last ammonia 03/03 74 but in normal range for patient - checked due to tiredness, otherwise her mentation has been baseline x multiple weeks - Patient to have US in 1 year for HCC surveillance and EGD in 3 years for variceal screening - not on aldactone. Was on in past and stopped. unsure as to why? -- Has had multiple admission off diuretics and no recent Rx in outpatient pharmacy review. She was restarted on Lasix here and states her landing man resumed this however hasn't had an Rx since August 2020? - Periodically assess labs (2) Diabetes mellitus: Plan: Patient with type 2 diabetes, well controlled, long-term use of insulin. Last hemoglobin A1c=5.6 on 05/23/20. Patient follows with Endocrinology/Diabetes education. Last seen on 01/04/21. - Continue Lantus while here, Tresiba as outpt - ISS - Goal blood sugar 100 - 140 - Recommend annual A1c monitoring - Is on hydrocortisone BID for suspected adrenal insufficiency - endocrinology questions the validity of ACTH deficiency diagnosis and plan to repeat testing to confirm diagnosis as outpatient - Follow up with religious educator outpatient as instructed (3) Seizure: Plan: Seizure disorder: Patient with history of seizure. She follows with neurology, last seen on 10/30/20 - follows for mixed tremor as well as dyskinesia and seizure history, parkinsonism. EEG completed in May 2018 revealed a generalized spike and slow wave abnormality consistent with an underlying generalized seizure disorder. Patient had an MRI brain completed in October 2017 which was unremarkable. Patient failed VNS placement in the past, device was explanted. Presently on topiramate, Trileptal and Keppra. 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 (5) Hyperammonemia: Plan: - Chronic and long standing, continue to treat with cathartic agents (6) Parkinsonism: Plan: - Secondary to psych meds, continue benztropine (7) Hypomagnesemia: Plan: - Replaced/resolved (8) Osteoporosis: Plan: - Reviewed patient's chart extensively, found a note from endocrine that patient was rx'd PTH therapy for her osteoporosis - Another note from endocrine during a different hospitalization noted that patient was on Forteo daily - Reordered her Forteo (med is NF so would need to bring this in) - he did bring this in earlier in hospital stay but uncertain if has anymore to bring in? (9) Left foot pain: Plan: - Discussed with patient and and he reports she has complained of this f or awhile. Suspect this is related to her deformity and likely contractures of the foot; L foot is more medially rotated and also having more plantar deviation and suspect this is due to her worsening ability to ambulate and more sedentary lifestyle. - XR - pes cavus deformity and hammertoe deformities with diffuse joint space narrowing - OxyIR 5mg q8h x 1 day ordered previously (no longer on order); would avoid opiates when possible - Tylenol 500 mg Q6H PRN - does use periodically at home and given stability of liver can use but will reduce total daily allowance - Will order heat and alternate with ice for pain - would benefit from gentle stretching as typically conservative approaches are warranted initially - Can consult orthotics however would be unable to come over weekend - may has s ome insole or braces?; maybe podiatry could assist? she follows with Dr. Rodriguez Plan: PT/OT- 3x/week Case Management working on ocean transportation intermediary placement given care needed at home. Patient gets 24 hours care from her (who is aging and has health issues of his own). This has been discussed by the PCP as well. [facility] process c om[facility] and awaiting bed availability. Is stable for D/C pending arrangements. Multiple referrals placed and awaiting determination. 03/19: patient requesting discharge to home but this has been discouraged as safety at home has been a concern. reports he believes he can care for her now with added support but patient's waiver services have been revoked since we have been pursuing placement to long-term care. With lack of outpatient staff available, she will not receive the care needed and home is not a safe discharge plan. Case mgmt working on this. 03/22: patient aware no support at home as waiver services revoked while in house. Agreeable for placement. CM working on this. 03/24: GHULAM Bourgeois discussed with patient's . At this time no options for returning home as he does not have support. While he would love to bring her home, he recognizes that she needs skilled care and placement. 03/27: Reviewed CM notes, apparently [facility] may have a bed opening up "s oon" according to documentation. No clear indication as to the time frame. I did reiterate to patient that her cannot care for her at home and has verbalized that to us so that is not a safe discharge plan. She seems irritated by that but had nothing further to say other than "I just have to get home." 03/28: Marcelle was extremely irritated today, swearing, stating that she doesn't want to be here for another 5 weeks. Wants more information on the possible bed openings at [facility] and were that facility is located. CM to discuss this with her. Discussed with patient and at bedside that referrals are still pending; still reports he is unable to take care of her at home without support Admission and Anticipated Discharge Date Admission Date: January 31, 2021 Subjective No acute events overnight. She reports she still has not moved her bowels. Did add Senna/Docusate. She continues to report pain in the feet/R knee. She states she normally takes "'30s" twice a day at home. Explained trying to avoid narcotics. Review of PDMP shows no Rx for narcotics since summer with only a few tablets. Will place PRN Tylenol as she does use this periodically at home and liver function is stable and will just limit total daily dosing. Review of Systems Review of Systems: All systems reviewed & are unremarkable except as noted in Subjective Physical Exam Physical Exam: PHYSICAL EXAM General Appearance: Frail; in NAD who is A&O x 3 HEENT: Head is normocephalic/atraumatic; Hearing grossly intact; anicteric sclera Neck: Supple; Trachea midline; Neg JVD Abdomen: Soft, non-tender, non-distended; Positive BS x 4 quadrants Extremities: No swelling or erythema of ankles; does have medially rotated and downward placement of ankle/foot bilaterally Neurological: Speech clear; + mild choreiform movements of head during this visit Psychiatric: appropriate mood/affect Skin: Normal Color; Warm/Dry Results & Data Results & Data ([facility]) Vital Signs (Past 12 Hours) Vital Signs Temp Pulse Resp BP Pulse Ox 04/01/21 07:18 36.6 C 70 16 120/55 L 97 03/31/21 23:40 36.7 C 62 20 112/57 L 97 PG Care Time/CCT Total # of Minutes Spent Total Time Spent with Patient: Total time spent is greater than 50% in coordination of care (as documented) at patient's floor/unit and/or counseling patient: Coding Level of Care Code 44043 Subseq Hosp Care Lvl 1 Diagnoses Cirrhosis K74.60 Diabetes mellitus E11.9 Seizure R56.9 Myoclonic seizure G40.409 Hyperammonemia E72.20 Parkinsonism G20 Hypomagnesemia E83.42 Osteoporosis M81.0 Left foot pain M79.672
[2021-04-01] MEDS: LIDOCAINE VISCOUS 2% SOLN 60 ML, diphenhydrAMINE Syrup 150 MG, ALUMINUM/MAGNESIUM SUSP ... PO PRN (16:13)
[2021-04-01] MEDS: FAMOTIDINE 20 MG TAB PO SCH (20:37)
[2021-04-01] MEDS: MELATONIN 3 MG TAB PO SCH (20:50)
[2021-04-01] MEDS: [UNRECOGNIZED DRUG - REMARK] SQ SCH (20:50)
[2021-04-02] MEDS: LEVOTHYROXINE SODIUM 50 MCG TABLET PO SCH (05:13)
[2021-04-02] MEDS: DICLOFENAC SOD 1% GEL 100 GM TUBE EXT SCH ×4 (07:14→21:44)
[2021-04-02] MEDS: LACTULOSE SYRUP 20 GM/30 ML UDC PO SCH ×3 (07:14→17:51)
[2021-04-02] MEDS: OXcarbazepine 150 MG TABLET PO SCH ×2 (07:16→21:47)
[2021-04-02] MEDS: ESCITALOPRAM OXALATE 20 MG TAB PO SCH (07:16)
[2021-04-02] MEDS: HYDROCORTISONE 10 MG TAB PO SCH ×2 (07:16→15:07)
[2021-04-02] MEDS: PRAVASTATIN SOD 20 MG TAB PO SCH (07:16)
[2021-04-02] MEDS: BENZTROPINE MESYLATE 1 MG TAB PO SCH ×3 (07:16→21:46)
[2021-04-02] MEDS: rOPINIRole HCL 0.25 MG TABLET PO SCH ×2 (07:16→21:45)
[2021-04-02] MEDS: FUROSEMIDE 20 MG TAB PO SCH (07:17)
[2021-04-02] MEDS: rifAXIMin 550 MG TABLET PO SCH ×2 (07:17→21:46)
[2021-04-02] MEDS: TOPIRAMATE 100 MG TAB PO SCH ×2 (07:17→21:46)
[2021-04-02] MEDS: levETIRAcetam 500 MG TAB PO SCH ×2 (07:18→21:47)
[2021-04-02] MEDS: MAGNESIUM OXIDE 400 MG TAB PO SCH ×2 (07:19→21:48)
[2021-04-02] MEDS: DOCUSATE SODIUM/SENNA 50/8.6MG TAB PO SCH (07:21)
[2021-04-02 08:04] LABS: Hematocrit (blood only) 29.7 % (37-47); Hemoglobin 10.6 g/dL (12.0-16.0); Mean Corpuscular Hemoglobin 36.2 pg (25-34); Mean Corpuscular Hgb Conc 35.7 g/dL (32-36); Mean Corpuscular Volume 101.4 fL (80-100); RDW Coefficient of Variation 13.4 % (11.5-14.5); RDW Standard Deviation 49.6 fL (36.4-46.3); Red Blood Count 2.93 M/uL (4.2-5.4); White Blood Count 4.02 K/uL (4.8-10.8)
[2021-04-02 08:07] LABS: Mean Platelet Volume 9.7 fL (7.4-10.4); Platelet Count 84 K/uL (130-400)
[2021-04-02] MEDS: INSULIN ASPART PER UNIT SC SCH ×4 (09:03→21:51)
[2021-04-02] MEDS: INSULIN GLARGINE SOLOSTAR 100 UNITS/ML 3 ML PEN SC SCH (09:04)
[2021-04-02] MEDS: FEXOFENADINE 60 MG TAB PO SCH (09:06)
[2021-04-02 09:44] LABS: BUN Creatinine Ratio 21.8 (10-20); Creatinine Clr Calc Pharmacy 119.8 ml/min; Est GFR (African American) 122.4 ml/min; Est GFR (Non-African American) 105.6 ml/min
--- NOTE | 2021-04-02 11:43 | Hospitalist Progress Note ---
Date of Service April 02, 2021 Assessment & Plan (1) Cirrhosis: Plan: No new issues have been occurring with this patient over the last days as we are waiting for placement. Cirrhosis secondary to STEVE w/ portal hypertension. Patient follows with gastroenterology, last seen by Dr. Toledo on 10/11/20. Patient had an EGD in June 2020 which showed no varices and mild portal-hypertensive gastropathy.HCV screening has been completed and is negative. AFP on 03/09/2019 = 2.6. INR =1.3. Elevation of AP and Tbili comparable to prior levels. - LFTs stable - Initially hospitalized w/ hepatic encephalopathy - at baseline mentation currently - Continue Lactulose, Rifaximin 550 mg p.o. twice daily--> patient averaging 4BM's/day but now hasn't had BM since taking narcotic meds added Senna/Docusate for a few days but may need to increase Lactulose - Pepcid 20mg po qHS - Last ammonia 03/03 74 but in normal range for patient - checked due to tiredness, otherwise her mentation has been baseline x multiple weeks - Patient to have US in 1 year for HCC surveillance and EGD in 3 years for variceal screening - not on aldactone. Was on in past and stopped. unsure as to why? -- Has had multiple admission off diuretics and no recent Rx in outpatient pharmacy review. She was restarted on Lasix here and states her dough raiser resumed this however hasn't had an Rx since August 2020? - Periodically assess labs (2) Diabetes mellitus: Plan: Patient with type 2 diabetes, well controlled, long-term use of insulin. Last hemoglobin A1c=5.6 on 05/23/20. Patient follows with Endocrinology/Diabetes education. Last seen on 01/04/21. - Continue Lantus while here, Tresiba as outpt - ISS - Goal blood sugar 100 - 140 - Recommend annual A1c monitoring - Is on hydrocortisone BID for suspected adrenal insufficiency - endocrinology questions the validity of ACTH deficiency diagnosis and plan to repeat testing to confirm diagnosis as outpatient - Follow up with machine folder outpatient as instructed (3) Seizure: Plan: Seizure disorder: Patient with history of seizure. She follows with neurology, last seen on 10/30/20 - follows for mixed tremor as well as dyskinesia and seizure history, parkinsonism. EEG completed in May 2018 revealed a generalized spike and slow wave abnormality consistent with an underlying generalized seizure disorder. Patient had an MRI brain completed in October 2017 which was unremarkable. Patient failed VNS placement in the past, device was explanted. Presently on topiramate, Trileptal and Keppra. 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 (5) Hyperammonemia: Plan: - Chronic and long standing, continue to treat with cathartic agents (6) Parkinsonism: Plan: - Secondary to psych meds, continue benztropine (7) Hypomagnesemia: Plan: - Replaced/resolved (8) Osteoporosis: Plan: - Reviewed patient's chart extensively, found a note from endocrine that patient was rx'd PTH therapy for her osteoporosis - Another note from endocrine during a different hospitalization noted that patient was on Forteo daily - Reordered her Forteo (med is [facility] so would need to bring this in) - he did bring this in earlier in hospital stay but uncertain if has anymore to bring in? (9) Left foot pain: Plan: - Discussed with patient and and he reports she has complained of this f or awhile. Suspect this is related to her deformity and likely contractures of the foot; L foot is more medially rotated and also having more plantar deviation and suspect this is due to her worsening ability to ambulate and more sedentary lifestyle. - XR - pes cavus deformity and hammertoe deformities with diffuse joint space narrowing - OxyIR 5mg q8h x 1 day ordered previously (no longer on order); would avoid opiates when possible - Tylenol 500 mg BID PRN and 1000 mg HS - reports she is recommended 2 g per day - Will order heat and alternate with ice for pain - would benefit from gentle stretching as typically conservative approaches are warranted initially - Consult orthotics - discussed at bedside - no direct bracing to assist but could try night boots that have some stretching to help prevent the foot drop but suspects she may need custom shoes - can try and call her cut off saw operator metal to see if any thoughts/recommendations as custom shoes would need done in outpatient setting Plan: PT/OT- 3x/week Case Management working on skilled nursing placement given care needed at home. Patient gets 24 hours care from her (who is aging and has health issues of his own). This has been discussed by the PCP as well. [facility] process complete and awaiting bed availability. Is stable for D/C pending arrangements. Multiple referrals placed and awaiting determination. 03/19: patient requesting discharge to home but this has been discouraged as safety at home has been a concern. reports he believes he can care for her now with added support but patient's waiver services have been revoked since we have been pursuing placement to long-term care. With lack of outpatient staff available, she will not receive the care needed and home is not a safe discharge plan. Case mgmt working on this. 03/22: patient aware no support at home as waiver services revoked while in house. Agreeable for placement. CM working on this. 03/24: GHULAM Bourgeois discussed with patient's . At this time no options for returning home as he does not have support. While he would love to bring her home, he recognizes that she needs skilled care and placement. 03/27: Reviewed CM notes, apparently [facility] may have a bed opening up "soon" according to documentation. No clear indication as to the time frame. I did reiterate to patient that her cannot care for her at home and has verbalized that to us so that is not a safe discharge plan. She seems irritated by that but had nothing further to say other than "I just have to get home." 03/28: Marcelle was extremely irritated today, swearing, stating that she doesn't want to be here for another 5 weeks. Wants more information on the possible bed openings at [facility] and were that facility is located. CM to discuss this with her. Discussed with patient and at bedside again today that referrals are still pending; still reports he is unable to take care of her at home without support. Had 48 hours with waiver services but stated that wasn't enough however these services have been revoked given her time here. It is unlikely we can find and get approved greater coverage. Marcelle is of sound mind to make a decision however she is dependent on for any form of transfer/food, etc. It sometimes requires 2 nurses to assist here and knows he cannot do this alone. She is in the right mind to request discharge home but without her able to take her she will need placed. Admission and Anticipated Discharge Date Admission Date: January 31, 2021 Subjective No acute events overnight. Moving her bowels adequately. Tolerating a diet without issue. Still with foot pain and did discuss with orthotics. She really wants to go home and discussed with who said without increased hours of caregivers he is unable to do this on his own. She is getting frustrated with being here so long and she has the mental capacity to make decisions however without her husbands support we cannot discharge her. Review of Systems Review of Systems: All systems reviewed & are unremarkable except as noted in Subjective Physical Exam Physical Exam: PHYSICAL EXAM General Appearance: Frail; in NAD who is A&O x 3 HEENT: Head is normocephalic/atraumatic; Hearing grossly intact; anicteric sclera Neck: Supple; Trachea midline; Neg JVD Abdomen: Soft, non-tender, non-distended; Positive BS x 4 quadrants Extremities: No swelling or erythema of ankles; does have medially rotated and downward placement of ankle/foot bilaterally Neurological: Speech clear; + mild choreiform movements of head during this visit Psychiatric: appropriate mood/affect Skin: Normal Color; Warm/Dry Results & Data Results & Data ([facility]) Vital Signs (Past 12 Hours) Vital Signs Temp Pulse Resp BP Pulse Ox 04/02/21 07:03 36.8 C 66 16 121/67 98 PG Care Time/CCT Total # of Minutes Spent Total Time Spent with Patient: Total time spent is greater than 50% in coordination of care (as documented) at patient's floor/unit and/or counseling patient: Coding Level of Care Code 22261 Subseq Hosp Care Lvl 1 Diagnoses Cirrhosis K74.60 Diabetes mellitus E11.9 Seizure R56.9 Myoclonic seizure G40.409 Hyperammonemia E72.20 Parkinsonism G20 Hypomagnesemia E83.42 Osteoporosis M81.0 Left foot pain M79.672
[2021-04-02] MEDS: LIDOCAINE VISCOUS 2% SOLN 60 ML, diphenhydrAMINE Syrup 150 MG, ALUMINUM/MAGNESIUM SUSP ... PO PRN (15:07)
[2021-04-02] MEDS ORDERED: ACETAMINOPHEN 325 MG TAB PO ONE (16:30)
[2021-04-02] MEDS: [UNRECOGNIZED DRUG - REMARK] SQ SCH (19:43)
[2021-04-02] MEDS: ACETAMINOPHEN 500 MG TAB PO SCH (21:44)
[2021-04-02] MEDS: FAMOTIDINE 20 MG TAB PO SCH (21:46)
[2021-04-02] MEDS: MELATONIN 3 MG TAB PO SCH (22:02)
[2021-04-03] MEDS: LEVOTHYROXINE SODIUM 50 MCG TABLET PO SCH (05:37)
[2021-04-03] MEDS: OXcarbazepine 150 MG TABLET PO SCH ×2 (09:40→20:39)
[2021-04-03] MEDS: BENZTROPINE MESYLATE 1 MG TAB PO SCH ×3 (09:40→20:40)
[2021-04-03] MEDS: TOPIRAMATE 100 MG TAB PO SCH ×2 (09:40→20:41)
[2021-04-03] MEDS: rOPINIRole HCL 0.25 MG TABLET PO SCH ×2 (09:41→20:41)
[2021-04-03] MEDS: ESCITALOPRAM OXALATE 20 MG TAB PO SCH (09:41)
[2021-04-03] MEDS: FEXOFENADINE 60 MG TAB PO SCH (09:41)
[2021-04-03] MEDS: HYDROCORTISONE 10 MG TAB PO SCH ×2 (09:41→16:05)
[2021-04-03] MEDS: PRAVASTATIN SOD 20 MG TAB PO SCH (09:42)
[2021-04-03] MEDS: MAGNESIUM OXIDE 400 MG TAB PO SCH ×2 (09:42→20:40)
[2021-04-03] MEDS: levETIRAcetam 500 MG TAB PO SCH ×2 (09:43→20:38)
[2021-04-03] MEDS: LACTULOSE SYRUP 20 GM/30 ML UDC PO SCH ×3 (09:43→18:16)
[2021-04-03] MEDS: rifAXIMin 550 MG TABLET PO SCH ×2 (09:43→20:41)
[2021-04-03] MEDS: INSULIN GLARGINE SOLOSTAR 100 UNITS/ML 3 ML PEN SC SCH (09:44)
[2021-04-03] MEDS: DICLOFENAC SOD 1% GEL 100 GM TUBE EXT SCH ×4 (09:46→20:45)
[2021-04-03] MEDS: INSULIN ASPART PER UNIT SC SCH ×4 (09:49→20:44)
[2021-04-03] MEDS: FUROSEMIDE 20 MG TAB PO SCH (12:29)
--- NOTE | 2021-04-03 17:24 | Hospitalist Progress Note ---
Date of Service April 03, 2021 Reviewed case with Elisa Deleon PA-C Assessment & Plan (1) Cirrhosis: Plan: No new issues have been occurring with this patient over the last days as we are waiting for placement. Cirrhosis secondary to STEVE w/ portal hypertension. Patient follows with gastroenterology, last seen by Dr. Toledo on 10/11/20. Patient had an EGD in June 2020 which showed no varices and mild portal-hypertensive gastropathy.HCV screening has been completed and is negative. AFP on 03/09/2019 = 2.6. INR =1.3. Elevation of AP and Tbili comparable to prior levels. - LFTs stable - Initially hospitalized w/ hepatic encephalopathy - at baseline mentation currently - Continue Lactulose, Rifaximin 550 mg p.o. twice daily--> patient averaging 4BM's/day but now hasn't had BM since taking narcotic meds added Senna/Docusate for a few days but may need to increase Lactulose - Pepcid 20mg po qHS - Last ammonia 03/03 74 but in normal range for patient - checked due to tiredness, otherwise her mentation has been baseline x multiple weeks - Patient to have US in 1 year for HCC surveillance and EGD in 3 years for variceal screening - not on aldactone. Was on in past and stopped. unsure as to why? -- Has had multiple admission off diuretics and no recent Rx in outpatient pharmacy review. She was restarted on Lasix here and states her acquisitions logistics analyst resumed this however hasn't had an Rx since August 2020? - Periodically assess labs (2) Diabetes mellitus: Plan: Patient with type 2 diabetes, well controlled, long-term use of insulin. Last hemoglobin A1c=5.6 on 05/23/20. Patient follows with Endocrinology/Diabetes education. Last seen on 01/04/21. - Continue Lantus while here, Tresiba as outpt - ISS - Goal blood sugar 100 - 140 - Recommend annual A1c monitoring - Is on hydrocortisone BID for suspected adrenal insufficiency - endocrinology questions the validity of ACTH deficiency diagnosis and plan to repeat testing to confirm diagnosis as outpatient - Follow up with agricultural extension educator outpatient as instructed (3) Seizure: Plan: Seizure disorder: Patient with history of seizure. She follows with neurology, last seen on 10/30/20 - follows for mixed tremor as well as dyskinesia and seizure history, parkinsonism. EEG completed in May 2018 revealed a generalized spike and slow wave abnormality consistent with an underlying generalized seizure disorder. Patient had an MRI brain completed in October 2017 which was unremarkable. Patient failed VNS placement in the past, device was explanted. Presently on topiramate, Trileptal and Keppra. 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 (5) Hyperammonemia: Plan: - Chronic and long standing, continue to treat with cathartic agents (6) Parkinsonism: Plan: - Secondary to psych meds, continue benztropine (7) Hypomagnesemia: Plan: - Replaced/resolved (8) Osteoporosis: Plan: - Reviewed patient's chart extensively, found a note from endocrine that patient was rx'd PTH therapy for her osteoporosis - Another note from endocrine during a different hospitalization noted that patient was on Forteo daily - Reordered her Forteo (med is [facility] so would need to bring this in) - he did bring this in earlier in hospital stay but uncertain if has anymore to bring in? (9) Left foot pain: Plan: - Discussed with patient and and he reports she has complained of this for awhile. Suspect this is related to her deformity and likely contractures of the foot; L foot is more medially rotated and also having more plantar deviation and suspect this is due to her worsening ability to ambulate and more sedentary lifestyle. - XR - pes cavus deformity and hammertoe deformities with diffuse joint space narrowing - OxyIR 5mg q8h x 1 day ordered previously (no longer on order); would avoid opiates when possible - Tylenol 500 mg BID PRN and 1000 mg HS - reports she is recommended 2 g per day - Will order heat and alternate with ice for pain - would benefit from gentle stretching as typically conservative approaches are warranted initially - Consult orthotics - discussed at bedside - no direct bracing to assist but could try night boots that have some stretching to help prevent the foot drop but suspects she may need custom shoes - can try and call her sr. logistics analyst to see if any thoughts/recommendations as custom shoes would need done in outpatient setting Plan: PT/OT- 3x/week Case Management working on long term care administrator placement given care needed at home. Patient gets 24 hours care from her (who is aging and has health issues of his own). This has been discussed by the PCP as well. [facility] process complete and awaiting bed availability. Is stable for D/C pending arrangements. Multiple referrals placed and awaiting determination. 03/19: patient requesting discharge to home but this has been discouraged as safety at home has been a concern. reports he believes he can care for her now with added support but patient's waiver services have been revoked since we have been pursuing placement to long-term care. With lack of outpatient staff available, she will not receive the care needed and home is not a safe discharge plan. Case mgmt working on this. 03/22: patient aware no support at home as waiver services revoked while in house. Agreeable for placement. CM working on this. 03/24: GHULAM Bourgeois discussed with patient's . At this time no options for returning home as he does not have support. While he would love to bring her home, he recognizes that she needs skilled care and placement. 03/27: Reviewed CM notes, apparently [facility] may have a bed opening up "soon" according to documentation. No clear indication as to the time frame. I did reiterate to patient that her cannot care for her at home and has verbalized that to us so that is not a safe discharge plan. She seems irritated by that but had nothing further to say other than "I just have to get home." 03/28: Marcelle was extremely irritated today, swearing, stating that she doesn't want to be here for another 5 weeks. Wants more information on the possible bed openings at [facility] and were that facility is located. CM to discuss this with her. Discussed with patient and at bedside again today that referrals are st ill pending; still reports he is unable to take care of her at home without support. Had 48 hours with waiver services but stated that wasn't enough however these services have been revoked given her time here. It is unlikely we can find and get approved greater coverage. Marcelle is of sound mind to make a decision however she is dependent on for any form of transfer/food, etc. It sometimes requires 2 nurses to assist here and knows he cannot do this alone. She is in the right mind to request discharge home but without her able to take her she will need placed. Admission and Anticipated Discharge Date Admission Date: January 31, 2021 Subjective No acute events overnight. Reports no BM today. Tolerating her diet. Updated at bedside. Review of Systems Review of Systems: All systems reviewed & are unremarkable except as noted in Subjective Physical Exam Physical Exam: PHYSICAL EXAM General Appearance: Frail; in NAD who is A&O x 3 HEENT: Head is normocephalic/atraumatic; Hearing grossly intact; anicteric sclera Neck: Supple; Trachea midline; Neg JVD Abdomen: Soft, non-tender, non-distended; Positive BS x 4 quadrants Extremities: No swelling or erythema of ankles; does have medially rotated and downward placement of ankle/foot bilaterally Neurological: Speech clear; + mild choreiform movements of head during this visit Psychiatric: appropriate mood/affect Skin: Normal Color; Warm/Dry Results & Data Results & Data ([facility]) Vital Signs (Past 12 Hours) Vital Signs Temp Pulse Resp BP Pulse Ox 04/03/21 16:22 36.8 C 69 16 106/55 L 94 04/03/21 07:52 36.8 C 56 L 16 117/68 98 PG Care Time/CCT Total # of Minutes Spent Total Time Spent with Patient: Total time spent is greater than 50% in coordination of care (as documented) at patient's floor/unit and/or counseling patient: Coding Level of Care Code 76591 Subseq Hosp Care Lvl 1 Diagnoses Cirrhosis K74.60 Diabetes mellitus E11.9 Seizure R56.9 Myoclonic seizure G40.409 Hyperammonemia E72.20 Parkinsonism G20 Hypomagnesemia E83.42 Osteoporosis M81.0 Left foot pain M79.672
[2021-04-03] MEDS: PROMETHAZINE HCL 25 MG TAB PO PRN (18:32)
[2021-04-03] MEDS: MELATONIN 3 MG TAB PO SCH (20:38)
[2021-04-03] MEDS: ACETAMINOPHEN 500 MG TAB PO SCH (20:38)
[2021-04-03] MEDS: FAMOTIDINE 20 MG TAB PO SCH (20:39)
[2021-04-03] MEDS: [UNRECOGNIZED DRUG - REMARK] SQ SCH (20:45)
[2021-04-04] MEDS: LEVOTHYROXINE SODIUM 50 MCG TABLET PO SCH (05:17)
[2021-04-04] MEDS: levETIRAcetam 500 MG TAB PO SCH ×2 (09:41→20:32)
[2021-04-04] MEDS: OXcarbazepine 150 MG TABLET PO SCH ×2 (09:42→20:31)
[2021-04-04] MEDS: BENZTROPINE MESYLATE 1 MG TAB PO SCH ×3 (09:42→20:32)
[2021-04-04] MEDS: HYDROCORTISONE 10 MG TAB PO SCH ×2 (09:42→13:55)
[2021-04-04] MEDS: PRAVASTATIN SOD 20 MG TAB PO SCH (09:42)
[2021-04-04] MEDS: ESCITALOPRAM OXALATE 20 MG TAB PO SCH (09:43)
[2021-04-04] MEDS: FEXOFENADINE 60 MG TAB PO SCH (09:43)
[2021-04-04] MEDS: rOPINIRole HCL 0.25 MG TABLET PO SCH ×2 (09:43→20:30)
[2021-04-04] MEDS: rifAXIMin 550 MG TABLET PO SCH ×2 (09:43→20:31)
[2021-04-04] MEDS: FUROSEMIDE 20 MG TAB PO SCH (09:43)
[2021-04-04] MEDS: LACTULOSE SYRUP 20 GM/30 ML UDC PO SCH ×3 (09:44→18:10)
[2021-04-04] MEDS: MAGNESIUM OXIDE 400 MG TAB PO SCH ×2 (09:44→20:30)
[2021-04-04] MEDS: TOPIRAMATE 100 MG TAB PO SCH ×2 (09:44→20:32)
[2021-04-04] MEDS: DICLOFENAC SOD 1% GEL 100 GM TUBE EXT SCH ×4 (09:45→20:32)
[2021-04-04] MEDS: INSULIN GLARGINE SOLOSTAR 100 UNITS/ML 3 ML PEN SC SCH (09:46)
[2021-04-04] MEDS: INSULIN ASPART PER UNIT SC SCH ×4 (09:53→20:35)
--- NOTE | 2021-04-04 16:32 | Hospitalist Progress Note ---
Date of Service April 04, 2021 Assessment & Plan (1) Cirrhosis: Plan: No new issues have been occurring with this patient over the last days as we are waiting for placement. Cirrhosis secondary to STEVE w/ portal hypertension. Patient follows with gastroenterology, last seen by Dr. Toledo on 10/11/20. Patient had an EGD in June 2020 which showed no varices and mild portal-hypertensive gastropathy.HCV screening has been completed and is negative. AFP on 03/09/2019 = 2.6. INR =1.3. Elevation of AP and Tbili comparable to prior levels. - LFTs stable - Initially hospitalized w/ hepatic encephalopathy - at baseline mentation currently - Continue Lactulose, Rifaximin 550 mg p.o. twice daily--> patient averaging 4BM's/day but now hasn't had BM since taking narcotic meds added Senna/Docusate for a few days but may need to increase Lactulose - Pepcid 20mg po qHS - Last ammonia 03/03 74 but in normal range for patient - checked due to tiredness, otherwise her mentation has been baseline x multiple weeks - Patient to have US in 1 year for HCC surveillance and EGD in 3 years for variceal screening - not on aldactone. Was on in past and stopped. unsure as to why? -- Has had multiple admission off diuretics and no recent Rx in outpatient pharmacy review. She was restarted on Lasix here and states her wetland scientist resumed this however hasn't had an Rx since August 2020? - Periodically assess labs (2) Diabetes mellitus: Plan: Patient with type 2 diabetes, well controlled, long-term use of insulin. Last hemoglobin A1c=5.6 on 05/23/20. Patient follows with Endocrinology/Diabetes education. Last seen on 01/04/21. - Continue Lantus while here, Tresiba as outpt - ISS - Goal blood sugar 100 - 140 - Recommend annual A1c monitoring - Is on hydrocortisone BID for suspected adrenal insufficiency - endocrinology questions the validity of ACTH deficiency diagnosis and plan to repeat testing to confirm diagnosis as outpatient - Follow up with waste machine operator outpatient as instructed (3) Seizure: Plan: Seizure disorder: Patient with history of seizure. She follows with neurology, last seen on 10/30/20 - follows for mixed tremor as well as dyskinesia and seizure history, parkinsonism. EEG completed in May 2018 revealed a generalized spike and slow wave abnormality consistent with an underlying generalized seizure disorder. Patient had an MRI brain completed in October 2017 which was unremarkable. Patient failed VNS placement in the past, device was explanted. Presently on topiramate, Trileptal and Keppra. 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 (5) Hyperammonemia: Plan: - Chronic and long standing, continue to treat with cathartic agents (6) Parkinsonism: Plan: - Secondary to psych meds, continue benztropine (7) Hypomagnesemia: Plan: - Replaced/resolved (8) Osteoporosis: Plan: - Reviewed patient's chart extensively, found a note from endocrine that patient was rx'd PTH therapy for her osteoporosis - Another note from endocrine during a different hospitalization noted that patient was on Forteo daily - Reordered her Forteo (med is [facility] so would need to bring this in) - he did bring this in earlier in hospital stay but uncertain if has anymore to bring in? (9) Left foot pain: Plan: - Discussed with patient and and he reports she has complained of this f or awhile. Suspect this is related to her deformity and likely contractures of the foot; L foot is more medially rotated and also having more plantar deviation and suspect this is due to her worsening ability to ambulate and more sedentary lifestyle. - XR - pes cavus deformity and hammertoe deformities with diffuse joint space narrowing - OxyIR 5mg q8h x 1 day ordered previously (no longer on order); would avoid opiates when possible - Tylenol 500 mg BID PRN and 1000 mg HS - reports she is recommended 2 g per day - Will order heat and alternate with ice for pain - would benefit from gentle stretching as typically conservative approaches are warranted initially - Consult orthotics - discussed at bedside - no direct bracing to assist but could try night boots that have some stretching to help prevent the foot drop but suspects she may need custom shoes - can try and call her commercial energy auditor to see if any thoughts/recommendations as custom shoes would need done in outpatient setting Plan: PT/OT- 3x/week Case Management working on retirement placement given care needed at home. Patient gets 24 hours care from her (who is aging and has health issues of his own). This has been discussed by the PCP as well. [facility] process complete and awaiting bed availability. Is stable for D/C pending arrangements. Multiple referrals placed and awaiting determination. 03/19: patient requesting discharge to home but this has been discouraged as safety at home has been a concern. reports he believes he can care for her now with added support but patient's waiver services have been revoked since we have been pursuing placement to long-term care. With lack of outpatient staff available, she will not receive the care needed and home is not a safe discharge plan. Case mgmt working on this. 03/22: patient aware no support at home as waiver services revoked while in house. Agreeable for placement. CM working on this. 03/24: GHULAM Bourgeois discussed with patient's . At this time no options for returning home as he does not have support. While he would love to bring her home, he recognizes that she needs skilled care and placement. 03/27: Reviewed CM notes, apparently [facility] may have a bed opening up "soon" according to documentation. No clear indication as to the time frame. I did reiterate to patient that her cannot care for her at home and has verbalized that to us so that is not a safe discharge plan. She seems irritated by that but had nothing further to say other than "I just have to get home." 03/28: Marcelle was extremely irritated today, swearing, stating that she doesn't want to be here for another 5 weeks. Wants more information on the possible bed openings at [place] and were that facility is located. CM to discuss this with her. Discussed with patient and at bedside again today that referrals are still pending; still reports he is unable to take care of her at home without support. Had 48 hours with waiver services but stated that wasn't enough however these services have been revoked given her time here. It is unlikely we can find and get approved greater coverage. Marcelle is of sound mind to make a decision however she is dependent on for any form of transfer/food, etc. It sometimes requires 2 nurses to assist here and knows he cannot do this alone. She is in the right mind to request discharge home but without her able to take her she will need placed. Admission and Anticipated Discharge Date Admission Date: January 31, 2021 Subjective No acute events overnight. Reports no new complaints today. Her mood seems to be a bit better today. She was able to move her bowels and reports no abdominal pain. She is tolerating a diet without issue. Updated at bedside. Review of Systems Review of Systems: All systems reviewed & are unremarkable except as noted in Subjective Physical Exam Physical Exam: PHYSICAL EXAM General Appearance: Frail; in NAD who is A&O x 3 HEENT: Head is normocephalic/atraumatic; Hearing grossly intact; anicteric sclera Neck: Supple; Trachea midline; Neg JVD Abdomen: Soft, non-tender, non-distended; Positive BS x 4 quadrants Extremities: No swelling or erythema of ankles; does have medially rotated and downward placement of ankle/foot bilaterally Neurological: Speech clear; + mild choreiform movements of head during this visit Psychiatric: appropriate mood/affect Skin: Normal Color; Warm/Dry Results & Data Results & Data ([facility]) Vital Signs (Past 12 Hours) Vital Signs Temp Pulse Resp BP Pulse Ox 04/04/21 15:39 36.5 C 70 18 135/76 95 04/04/21 07:05 36.8 C 64 18 135/73 97 PG Care Time/CCT Total # of Minutes Spent Total Time Spent with Patient: Total time spent is greater than 50% in coordination of care (as documented) at patient's floor/unit and/or counseling patient: Coding Level of Care Code 63277 Subseq Hosp Care Lvl 1 Diagnoses Cirrhosis K74.60 Diabetes mellitus E11.9 Seizure R56.9 Myoclonic seizure G40.409 Hyperammonemia E72.20 Parkinsonism G20 Hypomagnesemia E83.42 Osteoporosis M81.0 Left foot pain M79.672
[2021-04-04] MEDS: MELATONIN 3 MG TAB PO SCH (20:29)
[2021-04-04] MEDS: FAMOTIDINE 20 MG TAB PO SCH (20:30)
[2021-04-04] MEDS: ACETAMINOPHEN 500 MG TAB PO SCH (20:31)
[2021-04-04] MEDS: [UNRECOGNIZED DRUG - REMARK] SQ SCH (20:42)
[2021-04-05] MEDS: LEVOTHYROXINE SODIUM 50 MCG TABLET PO SCH (05:29)
[2021-04-05] MEDS: rifAXIMin 550 MG TABLET PO SCH ×2 (07:34→21:04)
[2021-04-05] MEDS: FUROSEMIDE 20 MG TAB PO SCH (07:34)
[2021-04-05] MEDS: PRAVASTATIN SOD 20 MG TAB PO SCH (07:34)
[2021-04-05] MEDS: FEXOFENADINE 60 MG TAB PO SCH (07:34)
[2021-04-05] MEDS: ESCITALOPRAM OXALATE 20 MG TAB PO SCH (07:35)
[2021-04-05] MEDS: OXcarbazepine 150 MG TABLET PO SCH ×2 (07:35→21:04)
[2021-04-05] MEDS: BENZTROPINE MESYLATE 1 MG TAB PO SCH ×3 (07:36→20:59)
[2021-04-05] MEDS: HYDROCORTISONE 10 MG TAB PO SCH ×2 (07:36→16:51)
[2021-04-05] MEDS: levETIRAcetam 500 MG TAB PO SCH ×2 (07:36→21:02)
[2021-04-05] MEDS: rOPINIRole HCL 0.25 MG TABLET PO SCH ×2 (07:37→21:05)
[2021-04-05] MEDS: MAGNESIUM OXIDE 400 MG TAB PO SCH ×2 (07:37→21:03)
[2021-04-05] MEDS: TOPIRAMATE 100 MG TAB PO SCH ×2 (07:37→21:05)
[2021-04-05] MEDS: LACTULOSE SYRUP 20 GM/30 ML UDC PO SCH ×3 (07:39→16:52)
[2021-04-05] MEDS: DICLOFENAC SOD 1% GEL 100 GM TUBE EXT SCH ×4 (07:40→20:59)
[2021-04-05] MEDS: INSULIN GLARGINE SOLOSTAR 100 UNITS/ML 3 ML PEN SC SCH (09:13)
[2021-04-05] MEDS: INSULIN ASPART PER UNIT SC SCH ×4 (09:15→21:00)
--- NOTE | 2021-04-05 17:44 | Hospitalist Progress Note ---
Date of Service April 05, 2021 Assessment & Plan (1) Cirrhosis: Plan: No new issues have been occurring with this patient over the last days as we are waiting for placement. Cirrhosis secondary to STEVE w/ portal hypertension. Patient follows with gastroenterology, last seen by Dr. Toledo on 10/11/20. Patient had an EGD in June 2020 which showed no varices and mild portal-hypertensive gastropathy.HCV screening has been completed and is negative. AFP on 03/09/2019 = 2.6. INR =1.3. Elevation of AP and Tbili comparable to prior levels. - LFTs stable - Initially hospitalized w/ hepatic encephalopathy - at baseline mentation currently - Continue Lactulose, Rifaximin 550 mg p.o. twice daily--> patient averaging 4BM's/day but now hasn't had BM since taking narcotic meds added Senna/Docusate for a few days but may need to increase Lactulose - Pepcid 20mg po qHS - Last ammonia 03/03 74 but in normal range for patient - checked due to tiredness, otherwise her mentation has been baseline x multiple weeks - Patient to have US in 1 year for HCC surveillance and EGD in 3 years for variceal screening - not on aldactone. Was on in past and stopped. unsure as to why? -- Has had multiple admission off diuretics and no recent Rx in outpatient pharmacy review. She was restarted on Lasix here and states her fret saw operator resumed this however hasn't had an Rx since August 2020? - Periodically assess labs (2) Diabetes mellitus: Plan: Patient with type 2 diabetes, well controlled, long-term use of insulin. Last hemoglobin A1c=5.6 on 05/23/20. Patient follows with Endocrinology/Diabetes education. Last seen on 01/04/21. - Continue Lantus while here, Tresiba as outpt - ISS - Goal blood sugar 100 - 140 - Recommend annual A1c monitoring - Is on hydrocortisone BID for suspected adrenal insufficiency - endocrinology questions the validity of ACTH deficiency diagnosis and plan to repeat testing to confirm diagnosis as outpatient - Follow up with breastfeeding educator outpatient as instructed (3) Seizure: Plan: Seizure disorder: Patient with history of seizure. She follows with neurology, last seen on 10/30/20 - follows for mixed tremor as well as dyskinesia and seizure history, parkinsonism. EEG completed in May 2018 revealed a generalized spike and slow wave abnormality consistent with an underlying generalized seizure disorder. Patient had an MRI brain completed in October 2017 which was unremarkable. Patient failed VNS placement in the past, device was explanted. Presently on topiramate, Trileptal and Keppra. 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 (5) Hyperammonemia: Plan: - Chronic and long standing, continue to treat with cathartic agents (6) Parkinsonism: Plan: - Secondary to psych meds, continue benztropine (7) Hypomagnesemia: Plan: - Replaced/resolved (8) Osteoporosis: Plan: - Reviewed patient's chart extensively, found a note from endocrine that patient was rx'd PTH therapy for her osteoporosis - Another note from endocrine during a different hospitalization noted that patient was on Forteo daily - Reordered her Forteo (med is NF so would need to bring this in) - he did bring this in earlier in hospital stay but uncertain if has anymore to bring in? (9) Left foot pain: Plan: - Discussed with patient and and he reports she has complained of this f or awhile. Suspect this is related to her deformity and likely contractures of the foot; L foot is more medially rotated and also having more plantar deviation and suspect this is due to her worsening ability to ambulate and more sedentary lifestyle. - XR - pes cavus deformity and hammertoe deformities with diffuse joint space narrowing - OxyIR 5mg q8h x 1 day ordered previously (no longer on order); would avoid opiates when possible - Tylenol 500 mg BID PRN and 1000 mg HS - reports she is recommended 2 g per day - Will order heat and alternate with ice for pain - would benefit from gentle stretching as typically conservative approaches are warranted initially - Consult orthotics - discussed at bedside - no direct bracing to assist but could try night boots that have some stretching to help prevent the foot drop but suspects she may need custom shoes - can try and call her sex therapist to see if any thoughts/recommendations as custom shoes would need done in outpatient setting Plan: PT/OT- 3x/week Case Management working on residential placement given care needed at home. Patient gets 24 hours care from her (who is aging and has health issues of his own). This has been discussed by the PCP as well. [facility] process complete and awaiting bed availability. Is stable for D/C pending arrangements. Multiple referrals placed and awaiting determination. 03/19: patient requesting discharge to home but this has been discouraged as safety at home has been a concern. reports he believes he can care for her now with added support but patient's waiver services have been revoked since we have been pursuing placement to long-term care. With lack of outpatient staff available, she will not receive the care needed and home is not a safe discharge plan. Case mgmt working on this. 03/22: patient aware no support at home as waiver services revoked while in house. Agreeable for placement. CM working on this. 03/24: GHULAM Bourgeois discussed with patient's . At this time no options for returning home as he does not have support. While he would love to bring her home, he recognizes that she needs skilled care and placement. 03/27: Reviewed CM notes, apparently [facility] may have a bed opening up "soon" according to documentation. No clear indication as to the time frame. I did reiterate to patient that her cannot care for her at home and has verbalized that to us so that is not a safe discharge plan. She seems irritated by that but had nothing further to say other than "I just have to get home." 03/28: Marcelle was extremely irritated today, swearing, stating that she doesn't want to be here for another 5 weeks. Wants more information on the possible bed openings at [facility] and were that facility is located. CM to discuss this with her. Discussed with patient and at bedside again today that referrals are still pending; still reports he is unable to take care of her at home without support. Had 48 hours with waiver services but stated that wasn't enough however these services have been revoked given her time here. It is unlikely we can find and get approved greater coverage. Marcelle is of sound mind to make a decision however she is dependent on for any form of transfer/food, etc. It sometimes requires 2 nurses to assist here and knows he cannot do this alone. She is in the right mind to request discharge home but without her able to take her she will need placed. Admission and Anticipated Discharge Date Admission Date: January 31, 2021 Supervising Physician Co-Signing Physician Notes Attending Attestation - Chart reviewed in detail, care plan d/w GHULAM Deleon. I agree w/ the tai components of her documentation. Chronically ill 55yo with cirrhosis, parkinsonism, seizure disorder/pseudoseizures, etc. Medically stable. Awaiting dispo. Sammy Haney MD Subjective No acute events overnight. No reports of pain today. Mood is better today and more optimistic today. Verbalizes no new complaints Review of Systems Review of Systems: All systems reviewed & are unremarkable except as noted in Subjective Results & Data Results & Data ([facility]) Vital Signs (Past 12 Hours) Vital Signs Temp Pulse Resp BP Pulse Ox 04/05/21 15:01 36.4 C L 65 18 165/73 H 97 04/05/21 07:22 36.7 C 57 L 18 118/66 98 PG Care Time/CCT Total # of Minutes Spent Total Time Spent with Patient: Total time spent is greater than 50% in coordination of care (as documented) at patient's floor/unit and/or counseling patient: Coding Level of Care Code 31185 Subseq Hosp Care Lvl 1 Diagnoses Cirrhosis K74.60 Diabetes mellitus E11.9 Seizure R56.9 Myoclonic seizure G40.409 Hyperammonemia E72.20 Parkinsonism G20 Hypomagnesemia E83.42 Osteoporosis M81.0 Left foot pain M79.672
[2021-04-05] MEDS: ACETAMINOPHEN 500 MG TAB PO SCH (20:58)
[2021-04-05] MEDS: FAMOTIDINE 20 MG TAB PO SCH (21:00)
[2021-04-05] MEDS: [UNRECOGNIZED DRUG - REMARK] SQ SCH (21:03)
[2021-04-05] MEDS: MELATONIN 3 MG TAB PO SCH (21:11)
[2021-04-06] MEDS: ACETAMINOPHEN 500 MG TAB PO PRN (04:43)
[2021-04-06] MEDS: LEVOTHYROXINE SODIUM 50 MCG TABLET PO SCH (05:52)
[2021-04-06] MEDS: INSULIN ASPART PER UNIT SC SCH ×4 (09:31→20:43)
[2021-04-06] MEDS: BENZTROPINE MESYLATE 1 MG TAB PO SCH ×3 (09:32→20:18)
[2021-04-06] MEDS: ESCITALOPRAM OXALATE 20 MG TAB PO SCH (09:33)
[2021-04-06] MEDS: FUROSEMIDE 20 MG TAB PO SCH (09:33)
[2021-04-06] MEDS: DICLOFENAC SOD 1% GEL 100 GM TUBE EXT SCH ×4 (09:33→20:19)
[2021-04-06] MEDS: FEXOFENADINE 60 MG TAB PO SCH (09:33)
[2021-04-06] MEDS: INSULIN GLARGINE SOLOSTAR 100 UNITS/ML 3 ML PEN SC SCH (09:34)
[2021-04-06] MEDS: HYDROCORTISONE 10 MG TAB PO SCH ×2 (09:34→13:44)
[2021-04-06] MEDS: LACTULOSE SYRUP 20 GM/30 ML UDC PO SCH ×3 (09:35→17:52)
[2021-04-06] MEDS: levETIRAcetam 500 MG TAB PO SCH ×2 (09:35→20:17)
[2021-04-06] MEDS: OXcarbazepine 150 MG TABLET PO SCH ×2 (09:35→20:17)
[2021-04-06] MEDS: MAGNESIUM OXIDE 400 MG TAB PO SCH ×2 (09:35→20:16)
[2021-04-06] MEDS: PRAVASTATIN SOD 20 MG TAB PO SCH (09:36)
[2021-04-06] MEDS: rifAXIMin 550 MG TABLET PO SCH ×2 (09:36→20:18)
[2021-04-06] MEDS: rOPINIRole HCL 0.25 MG TABLET PO SCH ×2 (09:36→20:16)
[2021-04-06] MEDS: TOPIRAMATE 100 MG TAB PO SCH ×2 (09:36→21:25)
--- NOTE | 2021-04-06 17:45 | Hospitalist Progress Note ---
Date of Service April 06, 2021 Assessment & Plan (1) Cirrhosis: Plan: No new issues have been occurring with this patient over the last days as we are waiting for placement. Cirrhosis secondary to STEVE w/ portal hypertension. Patient follows with gastroenterology, last seen by Dr. Toledo on 10/11/20. Patient had an EGD in June 2020 which showed no varices and mild portal-hypertensive gastropathy.HCV screening has been completed and is negative. AFP on 03/09/2019 = 2.6. INR =1.3. Elevation of AP and Tbili comparable to prior levels. - LFTs stable - Initially hospitalized w/ hepatic encephalopathy - at baseline mentation currently and has been this way for weeks - Continue Lactulose, Rifaximin 550 mg p.o. twice daily--> having adequate BMs - Pepcid 20mg po qHS - Last ammonia 03/03 74 but in normal range for patient - checked due to tiredness, otherwise her mentation has been baseline x multiple weeks - Patient to have US in 1 year for HCC surveillance and EGD in 3 years for variceal screening - not on aldactone. Was on in past and stopped. unsure as to why? -- Has had multiple admission off diuretics and no recent Rx in outpatient pharmacy review. She was restarted on Lasix here and states her emissions testing technician resumed this however hasn't had an Rx since August 2020? - Periodically assess labs (2) Diabetes mellitus: Plan: Patient with type 2 diabetes, well controlled, long-term use of insulin. Last hemoglobin A1c=5.6 on 05/23/20. Patient follows with Endocrinology/Diabetes education. Last seen on 01/04/21. - Continue Lantus while here, Tresiba as outpt - ISS - Goal blood sugar 100 - 140 - Recommend annual A1c monitoring - Is on hydrocortisone BID for suspected adrenal insufficiency - endocrinology questions the validity of ACTH deficiency diagnosis and plan to repeat testing to confirm diagnosis as outpatient - Follow up with certified lactation educator outpatient as instructed (3) Seizure: Plan: Seizure disorder: Patient with history of seizure. She follows with neurology, last seen on 10/30/20 - follows for mixed tremor as well as dyskinesia and seizure history, parkinsonism. EEG completed in May 2018 revealed a generalized spike and slow wave abnormality consistent with an underlying generalized seizure disorder. Patient had an MRI brain completed in October 2017 which was unremarkable. Patient failed VNS placement in the past, device was explanted. Presently on topiramate, Trileptal and Keppra. 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 (5) Hyperammonemia: Plan: - Chronic and long standing, continue to treat with cathartic agents (6) Parkinsonism: Plan: - Secondary to psych meds, continue benztropine (7) Hypomagnesemia: Plan: - Replaced/resolved (8) Osteoporosis: Plan: - Reviewed patient's chart extensively, found a note from endocrine that patient was rx'd PTH therapy for her osteoporosis - Another note from endocrine during a different hospitalization noted that patient was on Forteo daily - Reordered her Forteo (med is NF so would need to bring this in) - he did bring this in earlier in hospital stay but uncertain if has anymore to bring in? (9) Left foot pain: Plan: - Discussed with patient and and he reports she has complained of this for awhile. Suspect this is related to her deformity and likely contractures of the foot; L foot is more medially rotated and also having more plantar deviation and suspect this is due to her worsening ability to ambulate and more sedentary lifestyle. - XR - pes cavus deformity and hammertoe deformities with diffuse joint space narrowing - OxyIR 5mg q8h x 1 day ordered previously (no longer on order); would avoid opiates when possible - Tylenol 500 mg BID PRN and 1000 mg HS - reports she is recommended 2 g per day - Will order heat and alternate with ice for pain - would benefit from gentle stretching as typically conservative approaches are warranted initially - Consulted orthotics - discussed at bedside - no direct bracing to assist but could try night boots that have some stretching to help prevent the foot drop but suspects she may need custom shoes - No acute reason for podiatry consultation but could be considered Plan: PT/OT- 3x/week Case Management working on nursing home placement given care needed at home. Patient gets 24 hours care from her (who is aging and has health issues of his own). This has been discussed by the PCP as well. [facility] process complete and awaiting bed availability. Is stable for D/C pending arrangements. Multiple referrals placed and awaiting determination. 03/19: patient requesting discharge to home but this has been discouraged as safety at home has been a concern. reports he believes he can care for her now with added support but patient's waiver services have been revoked since we have been pursuing placement to long-term care. With lack of outpatient staff available, she will not receive the care needed and home is not a safe discharge plan. Case mgmt working on this. 03/22: patient aware no support at home as waiver services revoked while in house. Agreeable for placement. CM working on this. 03/24: GHULAM Bourgeois discussed with patient's . At this time no options for returning home as he does not have support. While he would love to bring her home, he recognizes that she needs skilled care and placement. 03/27: Reviewed CM notes, apparently [facility] may have a bed opening up "soon" according to documentation. No clear indication as to the time frame. I did reiterate to patient that her cannot care for her at home and has verbalized that to us so that is not a safe discharge plan. She seems irritated by that but had nothing further to say other than "I just have to get home." 03/28: Marcelle was extremely irritated today, swearing, stating that she doesn't want to be here for another 5 weeks. Wants more information on the possible bed openings at [facility] and were that facility is located. CM to discuss this with her. Discussed with patient and at bedside that referrals are still pending; still reports he is unable to take care of her at home without support. Had 48 hours with waiver services but stated that wasn't enough however these services have been revoked given her time here. It is unlikely we can find and get approved greater coverage. Marcelle is of sound mind to make a decision however she is dependent on for any form of transfer/food, etc. It some times requires 2 nurses to assist here and knows he cannot do this alone. She is in the right mind to request discharge home but without her able to take her she will need placed. [facility] is willing to offer bed but she is on a waitlist Admission and Anticipated Discharge Date Admission Date: January 31, 2021 Subjective No acute events overnight. Verbalizes no new complaints today. Was acceptable by a facility but on a wait list. Review of Systems Review of Systems: All systems reviewed & are unremarkable except as noted in Subjective Physical Exam Physical Exam: PHYSICAL EXAM General Appearance: Frail; in NAD who is A&O x 3 HEENT: Head is normocephalic/atraumatic; Hearing grossly intact; anicteric sclera Neck: Supple; Trachea midline; Neg JVD Abdomen: Soft, non-tender, non-distended; Positive BS x 4 quadrants Extremities: No swelling or erythema of ankles; does have medially rotated and downward placement of ankle/foot bilaterally Neurological: Speech clear; + mild choreiform movements of head during this visit Psychiatric: appropriate mood/affect Skin: Normal Color; Warm/Dry Results & Data Results & Data ([facility]) Vital Signs (Past 12 Hours) Vital Signs Temp Pulse Resp BP Pulse Ox 04/06/21 15:42 36.9 C 63 16 113/70 96 04/06/21 07:40 36.4 C L 57 L 16 145/71 H 99 PG Care Time/CCT Total # of Minutes Spent Total Time Spent with Patient: Total time spent is greater than 50% in coordination of care (as documented) at patient's floor/unit and/or counseling patient: Coding Level of Care Code 73280 Subseq Hosp Care Lvl 1 Diagnoses Cirrhosis K74.60 Diabetes mellitus E11.9 Seizure R56.9 Myoclonic seizure G40.409 Hyperammonemia E72.20 Parkinsonism G20 Hypomagnesemia E83.42 Osteoporosis M81.0 Left foot pain M79.672
[2021-04-06] MEDS: ACETAMINOPHEN 500 MG TAB PO SCH (20:15)
[2021-04-06] MEDS: MELATONIN 3 MG TAB PO SCH (20:16)
[2021-04-06] MEDS: FAMOTIDINE 20 MG TAB PO SCH (20:18)
[2021-04-06] MEDS: [UNRECOGNIZED DRUG - REMARK] SQ SCH (20:30)
[2021-04-06] MEDS: LIDOCAINE VISCOUS 2% SOLN 60 ML, diphenhydrAMINE Syrup 150 MG, ALUMINUM/MAGNESIUM SUSP ... PO PRN (20:33)
[2021-04-07] MEDS: LEVOTHYROXINE SODIUM 50 MCG TABLET PO SCH (06:04)
[2021-04-07] MEDS: TOPIRAMATE 100 MG TAB PO SCH ×2 (08:38→21:08)
[2021-04-07] MEDS: levETIRAcetam 500 MG TAB PO SCH ×2 (08:38→21:05)
[2021-04-07] MEDS: ESCITALOPRAM OXALATE 20 MG TAB PO SCH (08:38)
[2021-04-07] MEDS: FEXOFENADINE 60 MG TAB PO SCH (08:39)
[2021-04-07] MEDS: MAGNESIUM OXIDE 400 MG TAB PO SCH ×2 (08:39→21:11)
[2021-04-07] MEDS: BENZTROPINE MESYLATE 1 MG TAB PO SCH ×3 (08:39→21:05)
[2021-04-07] MEDS: rifAXIMin 550 MG TABLET PO SCH ×2 (08:39→21:07)
[2021-04-07] MEDS: rOPINIRole HCL 0.25 MG TABLET PO SCH ×2 (08:39→21:06)
[2021-04-07] MEDS: HYDROCORTISONE 10 MG TAB PO SCH ×2 (08:40→15:33)
[2021-04-07] MEDS: PRAVASTATIN SOD 20 MG TAB PO SCH (08:40)
[2021-04-07] MEDS: OXcarbazepine 150 MG TABLET PO SCH ×2 (08:40→21:07)
[2021-04-07] MEDS: FUROSEMIDE 20 MG TAB PO SCH (08:40)
[2021-04-07] MEDS: LACTULOSE SYRUP 20 GM/30 ML UDC PO SCH ×3 (08:41→18:10)
[2021-04-07] MEDS: DICLOFENAC SOD 1% GEL 100 GM TUBE EXT SCH ×4 (08:42→21:04)
[2021-04-07] MEDS: INSULIN ASPART PER UNIT SC SCH ×4 (08:45→20:51)
[2021-04-07] MEDS: INSULIN GLARGINE SOLOSTAR 100 UNITS/ML 3 ML PEN SC SCH (09:34)
[2021-04-07] MEDS: PROMETHAZINE HCL 25 MG TAB PO PRN (10:26)
--- NOTE | 2021-04-07 16:49 | Hospitalist Progress Note ---
Date of Service April 07, 2021 Assessment & Plan (1) Cirrhosis: Plan: Clinically stable. No new issues have been occurring with this patient over the last days as we are waiting for placement at [facility]. Cirrhosis secondary to STEVE w/ portal hypertension. Patient follows with gastroenterology, last seen by Dr. Toledo on 10/11/20. Patient had an EGD in June 2020 which showed no varices and mild portal-hypertensive gastropathy.HCV screening has been completed and is negative. AFP on 03/09/2019 = 2.6. INR =1.3. Elevation of AP and Tbili comparable to prior levels. - LFTs stable - Initially hospitalized w/ hepatic encephalopathy - at baseline mentation currently and has been this way for weeks - Continue Lactulose, Rifaximin 550 mg p.o. twice daily--> having adequate BMs - Pepcid 20mg po qHS - Last ammonia 03/03 74 but in normal range for patient - checked due to tiredness, otherwise her mentation has been baseline x multiple weeks - Patient to have US in 1 year for HCC surveillance and EGD in 3 years for variceal screening - not on aldactone. Was on in past and stopped. unsure as to why? -- Has had multiple admission off diuretics and no recent Rx in outpatient pharmacy review. She was restarted on Lasix here and states her product safety lead resumed this however hasn't had an Rx since August 2020? - Periodically assess labs (2) Diabetes mellitus: Plan: Patient with type 2 diabetes, well controlled, long-term use of insulin. Last hemoglobin A1c=5.6 on 05/23/20. Patient follows with Endocrinology/Diabetes education. Last seen on 01/04/21. - Continue Lantus while here, Tresiba as outpt - ISS - Goal blood sugar 100 - 140 - Recommend annual A1c monitoring - Is on hydrocortisone BID for suspected adrenal insufficiency - endocrinology questions the validity of ACTH deficiency diagnosis and plan to repeat testing to confirm diagnosis as outpatient - Follow up with certified adapted physical educator outpatient as instructed (3) Seizure: Plan: Stable. No recent seizures. Patient with history of seizure. She follows with neurology, last seen on 10/30/20 - follows for mixed tremor as well as dyskinesia and seizure history, parkinsonism. EEG completed in May 2018 revealed a generalized spike and slow wave abnormality consistent with an underlying generalized seizure disorder. Patient had an MRI brain completed in October 2017 which was unremarkable. Patient failed VNS placement in the past, device was explanted. Presently on topiramate, Trileptal and Keppra. 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 Nothing reported recently. (5) Hyperammonemia: Plan: - Chronic and long standing, continue to treat with cathartic agents (6) Parkinsonism: Plan: - Secondary to psych meds, continue benztropine (7) Hypomagnesemia: Plan: - Replaced/resolved (8) Osteoporosis: Plan: - Reviewed patient's chart extensively, found a note from endocrine that patient was rx'd PTH therapy for her osteoporosis - Another note from endocrine during a different hospitalization noted that patient was on Forteo daily - Reordered her Forteo (med is NF so would need to bring this in) - he did bring this in earlier in hospital stay but uncertain if has anymore to bring in? (9) Left foot pain: Plan: Patient continues to c/o pain left foot pain today. Pain in the setting of contracture. - Chronic. Suspect this is related to her deformity and likely contractures of the foot; L foot is more medially rotated and also having more plantar deviation and suspect this is due to her worsening ability to ambulate and more sedentary lifestyle. - XR - pes cavus deformity and hammertoe deformities with diffuse joint space narrowing - OxyIR 5mg q8h x 1 day ordered previously (no longer on order); would avoid opiates when possible as she has a hx of opiate abuse. - Tylenol 500 mg BID PRN and 1000 mg HS - reports she is recommended 2 g per day; Has Voltaren gel ordered as well. Would consider Lidoderm patch, but she has an allergy to adhesives resulting in a rash. - Will order heat and alternate with ice for pain - would benefit from gentle stretching as typically conservative approaches are warranted initially - Consulted orthotics - discussed at bedside - no direct bracing to assist but could try night boots that have some stretching to help prevent the foot drop but suspects she may need custom shoes - No acute reason for podiatry consultation but could be considered if patient remains inpatient over the next week. Plan: PT/OT- 3x/week Awaiting SNF placement as has no ability to care for patient at home. Admission and Anticipated Discharge Date Admission Date: January 31, 2021 Subjective Patient continues to c/o left foot pain 8/10 with rest and 10/10 with standing. No other new complaints today. Continues to await placement. Review of Systems Review of Systems: All systems reviewed & are unremarkable except as noted in Subjective Physical Exam Constitutional: + obese; no acute distress Eyes: + anicteric sclerae ENMT: Ears: no hearing impairment Neck: normal visual inspection Respiratory: normal respiratory effort, lungs clear to auscultation Cardiovascular: Rate/Rhythm: regular rate and regular rhythm Gastrointestinal (Abdomen): Inspection/Auscultation: normal bowel sounds Percussion/Palpation: abdomen soft; abdomen nontender Musculoskeletal: Head/Neck/Chest: normocephalic Skin: no rashes, warm and dry Psychiatric: A+Ox3, euthymic affect Results & Data Results & Data ([facility]) Vital Signs (Past 12 Hours) Vital Signs Temp Pulse Resp BP Pulse Ox 04/07/21 07:30 36.6 C 57 L 16 135/71 99 PG Care Time/CCT Total # of Minutes Spent Total Time Spent with Patient: Total time spent is greater than 50% in coordination of care (as documented) at patient's floor/unit and/or counseling patient: Coding Level of Care Code 81686 Subseq Hosp Care Lvl 2 History Expanded Problem Focused Exam Expanded Problem Focused Medical Decision Making Moderate Complexity Diagnoses Cirrhosis K74.60 Diabetes mellitus E11.9 Seizure R56.9 Myoclonic seizure G40.409 Hyperammonemia E72.20 Parkinsonism G20 Hypomagnesemia E83.42 Osteoporosis M81.0 Left foot pain M79.672
[2021-04-07] MEDS: ACETAMINOPHEN 500 MG TAB PO SCH (21:03)
[2021-04-07] MEDS: FAMOTIDINE 20 MG TAB PO SCH (21:04)
[2021-04-07] MEDS: MELATONIN 3 MG TAB PO SCH (21:05)
[2021-04-07] MEDS: [UNRECOGNIZED DRUG - REMARK] SQ SCH (21:06)
[2021-04-07] MEDS: LIDOCAINE VISCOUS 2% SOLN 60 ML, diphenhydrAMINE Syrup 150 MG, ALUMINUM/MAGNESIUM SUSP ... PO PRN (21:57)
[2021-04-08] MEDS: LEVOTHYROXINE SODIUM 50 MCG TABLET PO SCH (05:48)
[2021-04-08] MEDS: TOPIRAMATE 100 MG TAB PO SCH ×2 (08:24→21:37)
[2021-04-08] MEDS: OXcarbazepine 150 MG TABLET PO SCH ×2 (08:24→21:43)
[2021-04-08] MEDS: PRAVASTATIN SOD 20 MG TAB PO SCH (08:24)
[2021-04-08] MEDS: rifAXIMin 550 MG TABLET PO SCH ×2 (08:24→21:38)
[2021-04-08] MEDS: LACTULOSE SYRUP 20 GM/30 ML UDC PO SCH ×3 (08:24→17:31)
[2021-04-08] MEDS: FEXOFENADINE 60 MG TAB PO SCH (08:25)
[2021-04-08] MEDS: BENZTROPINE MESYLATE 1 MG TAB PO SCH ×3 (08:25→21:39)
[2021-04-08] MEDS: HYDROCORTISONE 10 MG TAB PO SCH ×2 (08:25→14:39)
[2021-04-08] MEDS: levETIRAcetam 500 MG TAB PO SCH ×2 (08:25→21:40)
[2021-04-08] MEDS: ESCITALOPRAM OXALATE 20 MG TAB PO SCH (08:25)
[2021-04-08] MEDS: DICLOFENAC SOD 1% GEL 100 GM TUBE EXT SCH ×4 (08:25→21:40)
[2021-04-08] MEDS: FUROSEMIDE 20 MG TAB PO SCH (08:25)
[2021-04-08] MEDS: MAGNESIUM OXIDE 400 MG TAB PO SCH ×2 (08:25→21:38)
[2021-04-08] MEDS: rOPINIRole HCL 0.25 MG TABLET PO SCH ×2 (08:26→21:37)
[2021-04-08] MEDS: INSULIN GLARGINE SOLOSTAR 100 UNITS/ML 3 ML PEN SC SCH (08:28)
[2021-04-08] MEDS: INSULIN ASPART PER UNIT SC SCH ×4 (08:42→21:47)
[2021-04-08] MEDS: LIDOCAINE 5% 1 PATCH TD SCH (10:33)
--- NOTE | 2021-04-08 12:28 | Hospitalist Progress Note ---
Date of Service April 08, 2021 Assessment & Plan (1) Cirrhosis: Plan: Clinically stable. Awaiting for placement at [facility]. Cirrhosis secondary to STEVE w/ portal hypertension. Patient follows with gastroenterology, last seen by Dr. Toledo on 10/11/20. Patient had an EGD in June 2020 which showed no varices and mild portal-hypertensive gastropathy.HCV screening has been completed and is negative. AFP on 03/09/2019 = 2.6. INR =1.3. Elevation of AP and Tbili comparable to prior levels. - LFTs stable - Initially hospitalized w/ hepatic encephalopathy - at baseline mentation currently and has been this way for weeks - Continue Lactulose, Rifaximin 550 mg p.o. twice daily--> having adequate BMs - Pepcid 20mg po qHS - Last ammonia 03/03 74 but in normal range for patient - checked due to tiredness, otherwise her mentation has been baseline x multiple weeks - Patient to have US in 1 year for HCC surveillance and EGD in 3 years for variceal screening - not on aldactone. Was on in past and stopped. unsure as to why? -- Has had multiple admission off diuretics and no recent Rx in outpatient pharmacy review. She was restarted on Lasix here and states her social work supervisor resumed this however hasn't had an Rx since August 2020? - Periodically assess labs (2) Diabetes mellitus: Plan: Patient with type 2 diabetes, well controlled, long-term use of insulin. Last hemoglobin A1c=5.6 on 05/23/20. Patient follows with Endocrinology/Diabetes education. Last seen on 01/04/21. - Continue Lantus while here, Tresiba as outpt - ISS - Goal blood sugar 100 - 140 - Recommend annual A1c monitoring - Is on hydrocortisone BID for suspected adrenal insufficiency - endocrinology questions the validity of ACTH deficiency diagnosis and plan to repeat testing to confirm diagnosis as outpatient - Follow up with inclusion special educator outpatient as instructed (3) Seizure: Plan: Stable. No recent seizures. Patient with history of seizure. She follows with neurology, last seen on 10/30/20 - follows for mixed tremor as well as dyskinesia and seizure history, parkinsonism. EEG completed in May 2018 revealed a generalized spike and slow wave abnormality consistent with an underlying generalized seizure disorder. Patient had an MRI brain completed in October 2017 which was unremarkable. Patient failed VNS placement in the past, device was explanted. Presently on topiramate, Trileptal and Keppra. 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 Nothing reported recently. (5) Hyperammonemia: Plan: - Chronic and long standing, continue to treat with cathartic agents (6) Parkinsonism: Plan: - Secondary to psych meds, continue benztropine (7) Hypomagnesemia: Plan: - Replaced/resolved (8) Osteoporosis: Plan: - Reviewed patient's chart extensively, found a note from endocrine that patient was rx'd PTH therapy for her osteoporosis - Another note from endocrine during a different hospitalization noted that patient was on Forteo daily - Forteo resumed while inpatient. (9) Left foot pain: Plan: Patient continues to c/o pain left foot pain today. Pain in the setting of contracture. - Chronic. Suspect this is related to her deformity and likely contractures of the foot; L foot is more medially rotated and also having more plantar deviation and suspect this is due to her worsening ability to ambulate and more sedentary lifestyle. - XR - pes cavus deformity and hammertoe deformities with diffuse joint space narrowing - OxyIR 5mg q8h x 1 day ordered previously (no longer on order); would avoid opiates when possible as she has a hx of opiate abuse. - Tylenol 500 mg BID PRN and 1000 mg HS - reports she is recommended 2 g per day - Voltaren gel ordered, but she does not feel it is helping. Will try a Lidoderm patch. She does have adhesive allergy. If she develops a rash with the patch, we can discontinue. - Continue heat and alternate with ice for pain - would benefit from gentle stretching as typically conservative approaches are warranted initially - Consulted orthotics - discussed at bedside - no direct bracing to assist but could try night boots that have some stretching to help prevent the foot drop but suspects she may need custom shoes. She has not yet been provided the boot. Will need to reach back out to orthotics on Friday to see if they can provide a boot. - No acute reason for podiatry or ortho consultation but could be considered if patient remains inpatient over the next week. Plan: PT/OT- 3x/week Awaiting SNF placement as has no ability to care for patient at home. She is currently 4th in line for a bed at [facility]. Admission and Anticipated Discharge Date Admission Date: January 31, 2021 Subjective Patient reports right foot pain is radiating up her leg to her knee today. She reports it has done this in the past. Pain not improved with Voltaren gel, Tylenol, or K-pads. She has no other new complaints today. Review of Systems Review of Systems: All systems reviewed & are unremarkable except as noted in Subjective Physical Exam Physical Exam: Temp Pulse Resp BP Pulse Ox 36.8 C 63 16 138/70 97 04/08/21 07:30 04/08/21 07:30 04/08/21 07:30 04/08/21 07:30 04/08/21 07:30 Patient is afebrile. Vital signs stable. Constitutional: + obese; no acute distress Eyes: + anicteric sclerae ENMT: Ears: no hearing impairment Neck: normal visual inspection Respiratory: normal respiratory effort, lungs clear to auscultation Cardiovascular: Rate/Rhythm: regular rate and regular rhythm Vessels: no JVD Extremities: no edema Gastrointestinal (Abdomen): Inspection/Auscultation: normal bowel sounds Percussion/Palpation: abdomen soft; abdomen nontender Musculoskeletal: Head/Neck/Chest: normocephalic Skin: no rashes, warm and dry Psychiatric: A+Ox3, euthymic affect Results & Data Results & Data ([facility]) Vital Signs (Past 12 Hours) Vital Signs Temp Pulse Resp BP Pulse Ox 04/08/21 07:30 36.8 C 63 16 138/70 97 PG Care Time/CCT Total # of Minutes Spent Total Time Spent with Patient: Total time spent is greater than 50% in coordination of care (as documented) at patient's floor/unit and/or counseling patient: Coding Level of Care Code 14447 Subseq Hosp Care Lvl 2 Diagnoses Cirrhosis K74.60 Diabetes mellitus E11.9 Seizure R56.9 Myoclonic seizure G40.409 Hyperammonemia E72.20 Parkinsonism G20 Hypomagnesemia E83.42 Osteoporosis M81.0 Left foot pain M79.672
[2021-04-08] MEDS: MELATONIN 3 MG TAB PO SCH (21:36)
[2021-04-08] MEDS: FAMOTIDINE 20 MG TAB PO SCH (21:36)
[2021-04-08] MEDS: ACETAMINOPHEN 500 MG TAB PO SCH (21:37)
[2021-04-08] MEDS: [UNRECOGNIZED DRUG - REMARK] SQ SCH (21:46)
[2021-04-09] MEDS: LEVOTHYROXINE SODIUM 50 MCG TABLET PO SCH (04:51)
--- NOTE | 2021-04-09 07:30 | Hospitalist Progress Note ---
Date of Service April 09, 2021 Assessment & Plan (1) Cirrhosis: Plan: Clinically stable. Awaiting for placement at [facility]. Initially hospitalized w/ hepatic encephalopathy 2/2 UTI. Has been resolved, at baseline mentation, for weeks. No clinical evidence of HE. No indication to recheck ammonia. Cirrhosis 2/2 STEVE (presumed, no biopsy per my review) c/b portal hypertension Followed by Hepatology at [facility] + Dr Paris [facility] Not listed for transplant Decompensated due to recent HE MELD-Na: 10 (as of last INR 01/2021 & last Tbili 02/2021 & last RFP 03/2021) History of HE No varices, variceal hemorrhage (last EGD 06/2020 - mild PHG) No ascites, SBP No HPS or PPHTN No HRS No HCC (last RUQ US 09/2020 & AFP 02/2019 - likely more recently done at [facility]) - Continue Lactulose TID, Rifaximin 550mg BID + zinc. Titrate lactulose as needed to achieve ~3BM/d - Continue pepcid 20mg po qhs (consider PPI if recurrent AMS continues to be a problem) - Outpatient follow up: Annual RUQ US + AFP for HCC screening (next due 09/2021). EGD q3y for variceal screening (next due 06/2023) - Continue furosemide 20mg daily (restarted and no outpatient rx since August 2020). Not on aldactone. - Periodically assess MELD labs (CMP + INR) - Max 2G APAP per day (2) Diabetes mellitus: Plan: Type 2 diabetes, well controlled, long-term use of insulin.Last A1c 5.6 05/2020. Follows with Endocrinology/Diabetes education. Last seen on 01/04/21. - Continue Lantus while here, Tresiba as outpt - ISS - Goal blood sugar 100 - 140 - Recommend annual A1c monitoring - Is on hydrocortisone BID for suspected adrenal insufficiency - endocrinology questions the validity of ACTH deficiency diagnosis and plan to repeat testing to confirm diagnosis as outpatient - Follow up with simulation educator outpatient as instructed (3) Seizure: Plan: Stable. No recent seizures. Patient with history of seizure. She follows with neurology, last seen on 10/30/20 - follows for mixed tremor as well as dyskinesia and seizure history, parkinsonism. EEG completed in May 2018 revealed a generalized spike and slow wave abnormality consistent with an underlying generalized seizure disorder. Patient had an MRI brain completed in October 2017 which was unremarkable. Patient failed VNS placement in the past, device was explanted. Presently on topiramate, Trileptal and Keppra. reports no seizure x 1 year or greater - Continue Ropinirole - Continue topiramate - Continue Trileptal - Continue Keppra - Continue Benztropine for EPS (4) Myoclonic seizure: Plan: History of psychogenic nonepileptic seizures. Nothing reported recently. (5) Parkinsonism: Plan: - Secondary to psych meds, continue benztropine (6) Hypomagnesemia: Plan: - Replaced/resolved (7) Osteoporosis: Plan: - Reviewed patient's chart extensively, found a note from endocrine that patient was rx'd PTH therapy for her osteoporosis - Another note from endocrine during a different hospitalization noted that patient was on Forteo daily - Forteo resumed while inpatient. (8) Left foot pain: Plan: Patient continues to c/o pain left foot/leg pain. Pain in the setting of contracture. Chronic. Suspect this is related to her deformity and likely contractures of the foot; L foot is more medially rotated and also having more plantar deviation and suspect this is due to her worsening ability to ambulate and more sedentary lifestyle. XR Foot 03/29/21: pes cavus deformity and hammertoe deformities with diffuse joint space narrowing - Not on DVT ppx (mechanical or pharmacologic) per my review - obtain LLE DVT US to r/o DVT causing pain - Tylenol 500 mg BID PRN + 1000mg HS (Max 2G/day given cirrhosis) - Voltaren gel & lidocaine patch ordered, she does not feel they are helping. She does have adhesive allergy. If she develops a rash with the patch, we can discontinue. - Continue heat and alternate with ice for pain - would benefit from gentle stretching as typically conservative approaches are warranted initially - Consulted orthotics - discussed at bedside - no direct bracing to assist but could try night boots that have some stretching to help prevent the foot drop but suspects she may need custom shoes. She has not yet been provided the boot. Will need to reach back out to orthotics on Friday to see if they can provide a boot. - No acute reason for podiatry or ortho consultation but could be considered if patient remains inpatient over the next week. (9) Chronic anemia: Plan: Chronic. Baseline Hgb -2020. Recently 9-10s. Normal iron/ferritin 12/2020. Suspect iatrogenic in s/o prolonged hospitalization. No bleeding Minimize labs. (10) Thrombocytopenia: Plan: Likely due to portal HTN in s/o cirrhosis. Baseline 80-90s since fall 2020. Previously 150s early 2020 w/ some prior periods of decline into ~80s Monitor for bleeding Monitor intermittently while inpatient Plan: PT/OT- 3x/week DVT ppx: None. LLE DVT US today. If negative, IPCs if able to tolerate. Will reassess Plt count on AM labs & determine if pharmacologic ppx possible. Code: Full Dispo: Awaiting SNF placement as has no ability to care for patient at home. She is currently 4th in line for a bed at [facility]. Appreciate CM Admission and Anticipated Discharge Date Admission Date: January 31, 2021 Jeffry Munson is a 55F admitted 01/31/21 for altered mental status due to UTI & HE. She is medically stable but has been awaiting SNF placement as her family is unable to care for her at home. Her PMH is notable for STEVE cirrhosis (c/b portal HTN, PHG, HE), possible secondary adrenal insufficiency, E. fecalis PJI, seizure disorder, insulin dependent T2DM, hypothyroidism, GERD, depression, asthma, migraines, and tremor. Today - VSS - No AM labs today, no new imaging - Glucose well controlled 100-160s - L foot/leg below knee still bothersome - constant throbbing, not worsening but not improving - Alert & oriented Review of Systems Review of Systems: No NAVA CP SOB Cough Abd pain N/V/D/C dysuria confusion Physical Exam Physical Exam: General: Well appearing, no acute distress, lying in bed c omfortably CV: Normal rate, regular rhythm. No murmurs. Resp: Breathing comfortably on room air. Lungs clear to auscultation bilaterally. No wheezes, crackles, or rhonchi Abd: Soft, nontender, no fluid wave, hyperactive bowel sounds Skin: No jaundice. Ext: Warm, well perfused. Trace edema b/l. No erythema, no asymmetry. Tender to palpation of both shins. Pes cavus deformity bilaterally. Neuro: No asterixis. PERRLA. Constant rhythmic neck rolling tremor. Awake, alert, oriented X3. Able to countdown from 10. Answers questions appropriately Results & Data Results & Data ([facility]) Vital Signs (Past 12 Hours) Vital Signs Temp Pulse Resp BP Pulse Ox 04/09/21 07:12 98.2 F 59 L 16 135/72 95 04/08/21 23:19 98.2 F 67 16 129/69 93 PG Care Time/CCT Total # of Minutes Spent Total Time Spent with Patient: Total time spent is greater than 50% in coordination of care (as documented) at patient's floor/unit and/or counseling patient: Coding Level of Care Code 09375 Subseq Hosp Care Lvl 2 Diagnoses Cirrhosis K74.60 Diabetes mellitus E11.9 Seizure R56.9 Myoclonic seizure G40.409 Parkinsonism G20 Hypomagnesemia E83.42 Osteoporosis M81.0 Left foot pain M79.672 Chronic anemia D64.9 Thrombocytopenia D69.6
[2021-04-09] MEDS: MAGNESIUM OXIDE 400 MG TAB PO SCH ×2 (08:14→21:07)
[2021-04-09] MEDS: TOPIRAMATE 100 MG TAB PO SCH ×2 (08:14→21:09)
[2021-04-09] MEDS: FEXOFENADINE 60 MG TAB PO SCH (08:14)
[2021-04-09] MEDS: levETIRAcetam 500 MG TAB PO SCH ×2 (08:14→21:07)
[2021-04-09] MEDS: rifAXIMin 550 MG TABLET PO SCH ×2 (08:14→21:08)
[2021-04-09] MEDS: BENZTROPINE MESYLATE 1 MG TAB PO SCH ×3 (08:14→21:06)
[2021-04-09] MEDS: HYDROCORTISONE 10 MG TAB PO SCH ×2 (08:14→14:24)
[2021-04-09] MEDS: rOPINIRole HCL 0.25 MG TABLET PO SCH ×2 (08:14→21:09)
[2021-04-09] MEDS: FUROSEMIDE 20 MG TAB PO SCH (08:14)
[2021-04-09] MEDS: ESCITALOPRAM OXALATE 20 MG TAB PO SCH (08:15)
[2021-04-09] MEDS: OXcarbazepine 150 MG TABLET PO SCH ×2 (08:15→21:08)
[2021-04-09] MEDS: LIDOCAINE 5% 1 PATCH TD SCH (08:15)
[2021-04-09] MEDS: DICLOFENAC SOD 1% GEL 100 GM TUBE EXT SCH ×4 (08:15→21:06)
[2021-04-09] MEDS: PRAVASTATIN SOD 20 MG TAB PO SCH (08:15)
[2021-04-09] MEDS: LACTULOSE SYRUP 20 GM/30 ML UDC PO SCH ×3 (08:15→18:00)
[2021-04-09] MEDS: INSULIN ASPART PER UNIT SC SCH ×4 (09:17→21:12)
[2021-04-09] MEDS: INSULIN GLARGINE SOLOSTAR 100 UNITS/ML 3 ML PEN SC SCH (09:20)
[2021-04-09] MEDS: LIDOCAINE VISCOUS 2% SOLN 60 ML, diphenhydrAMINE Syrup 150 MG, ALUMINUM/MAGNESIUM SUSP ... PO PRN (11:45)
[2021-04-09] MEDS ORDERED: [UNRECOGNIZED DRUG - REMARK] PO PRN (14:50)
--- NOTE | 2021-04-09 15:10 | Ultrasound Report ---
LEFT LOWER EXTREMITY VENOUS DOPPLER CLINICAL HISTORY: prolonged immobility. Left lower extremity pain. COMPARISON STUDY: Bilateral lower extremity venous Doppler ultrasound February 18, 2019. TECHNIQUE: Sonography of the deep venous system of the left lower extremity was performed. Compressi on and augmentation were evaluated. FINDINGS: The left common femoral, superficial femoral and popliteal veins were compressible. Augmen tation was normal. Flow was shown within the deep calf vessels. IMPRESSION: No evidence of deep venous thrombus within the left lower extremity. ACT 112: Negative or not required by law. Electronically signed by: Rolan Chan M.D. 04/09/2021 3:09 PM
[2021-04-09] MEDS: [UNRECOGNIZED DRUG - REMARK] PO PRN (15:16)
[2021-04-09] MEDS: ACETAMINOPHEN 500 MG TAB PO SCH (21:06)
[2021-04-09] MEDS: FAMOTIDINE 20 MG TAB PO SCH (21:07)
[2021-04-09] MEDS: [UNRECOGNIZED DRUG - REMARK] SQ SCH (21:07)
[2021-04-09] MEDS: MELATONIN 3 MG TAB PO SCH (21:12)
[2021-04-10] MEDS: LEVOTHYROXINE SODIUM 50 MCG TABLET PO SCH (05:24)
--- NOTE | 2021-04-10 07:38 | Hospitalist Progress Note ---
Date of Service April 10, 2021 Assessment & Plan (1) Cirrhosis: Plan: Clinically stable. Awaiting for placement at [facility]. Initially hospitalized w/ hepatic encephalopathy 2/2 UTI. Has been resolved, at baseline mentation, for weeks. No clinical evidence of HE. No indication to recheck ammonia. Cirrhosis 2/2 STEVE (presumed, no biopsy per my review) c/b portal hypertension Followed by Hepatology at [facility] + Dr Paris CHAPIN GI Not listed for transplant Decompensated due to recent HE MELD-Na: 11 as of labs 04/10/21 History of HE No varices, variceal hemorrhage (last EGD 06/2020 - mild PHG) No ascites, SBP No HPS or PPHTN No HRS No HCC (last RUQ US 09/2020 & AFP 02/2019 - likely more recently done at [facility]) - Continue Lactulose TID, Rifaximin 550mg BID + zinc. Titrate lactulose as needed to achieve ~3BM/d - Continue pepcid 20mg po qhs (consider PPI in place of H2 amaya if recurrent AMS continues to be a problem) - Outpatient follow up: Annual RUQ US + AFP for HCC screening (next due 09/2021). EGD q3y for variceal screening (next due 06/2023) - Continue furosemide 20mg daily (restarted and no outpatient rx since August 2020). Not on aldactone. - Periodically assess MELD labs (CMP + INR) - Max 2G APAP per day (2) Diabetes mellitus: Plan: Type 2 diabetes, well controlled, long-term use of insulin.Last A1c 5.6 05/2020. Follows with Endocrinology/Diabetes education. Last seen on 01/04/21. - Continue Lantus while here, Tresiba as outpt - ISS - Goal blood sugar 100 - 140 - Recommend annual A1c monitoring - On hydrocortisone BID for suspected adrenal insufficiency. Note endocrinology questions validity of ACTH deficiency diagnosis, plans to repeat testing outpatient to confirm diagnosis - Follow up with art educator outpatient as instructed (3) Seizure: Plan: Stable. No recent seizures. Patient with history of seizure. She follows with neurology, last seen on 10/30/20 - follows for mixed tremor as well as dyskinesia and seizure history, parkinsonism. EEG completed in May 2018 revealed a generalized spike and slow wave abnormality consistent with an underlying generalized seizure disorder. Patient had an MRI brain completed in October 2017 which was unremarkable. Patient failed VNS placement in the past, device was explanted. Presently on topiramate, Trileptal and Keppra. reports no seizure x 1 year or greater - Continue Ropinirole - Continue topiramate - Continue Trileptal - Continue Keppra - Continue Benztropine for EPS (4) Myoclonic seizure: Plan: History of psychogenic nonepileptic seizures. Nothing reported recently. (5) Parkinsonism: Plan: - Secondary to psych meds, continue benztropine (6) Hypomagnesemia: Plan: - Replaced/resolved (7) Osteoporosis: Plan: Endocrinology note 12/2020 notes patient on Forteo daily. Started early 2020, plan to continue for 2y. - Forteo resumed (8) Left foot pain: Plan: Gradually improving left foot/leg pain. Chronic. Suspect this is related to her deformity and contracture of foot + bedbound; L foot more medially rotated and also having more plantar deviation and suspect this is due to her worsening ability to ambulate and more sedentary lifestyle. XR Foot 03/29/21: pes cavus deformity and hammertoe deformities with diffuse joint space narrowing Orthotics consult: may need custom shoes, f/u outpatient. No boot available that would help w/ stretching while inpatient. LLE DVT US 04/09/21 negative for DVT - Tylenol 500 mg BID PRN + 1000mg HS (Max 2G/day given cirrhosis) - Voltaren gel & lidocaine patch ordered, she does not feel they are helping. She does have adhesive allergy. If she develops a rash with the patch, we can discontinue. - Continue heat and alternate with ice for pain - would benefit from gentle stretching as typically conservative approaches are warranted initially - No acute reason for podiatry or ortho consultation but could be considered if patient remains inpatient over the next week. (9) Chronic anemia: Plan: Chronic. Improved/resolved on most recent labs. Suspect chronic hypoproliferative + iatrogenic in s/o prolonged hospitalization. Per chart review, chronic anemia due to myelodysplastic syndrome (which makes sense given macrocytosis & normal iron studies 12/2020) & follows w/ hematology (no recent note viewable per my chart review) Baseline Hgb 9-2020. Normal iron/ferritin 12/2020. No bleeding. Minimize labs. (10) Thrombocytopenia: Plan: Likely due to portal HTN in s/o cirrhosis. Baseline 80-90s since fall 2020. Previously 150s early 2020 w/ some prior periods of decline into ~80s Monitor intermittently while inpatient Maintain pharmacologic DVT ppx when Plt >50k (11) Depression: Plan: Continue home escitalopram 20mg (12) Migraine: Plan: Continue home nurtec PRN migraine Plan: PT/OT: 3x/week DVT ppx: Lovenox ppx 40mg q24h + IPCs per patient request Code: Full Dispo: Awaiting SNF placement as has no ability to care for patient at home. She is currently 4th in line for a bed at [facility]. Appreciate CM Admission and Anticipated Discharge Date Admission Date: January 31, 2021 Jeffry Munson is a 55F admitted 01/31/21 for altered mental status due to UTI & HE which has now resolved to baseline. She is medically stable but has been awaiting SNF placement as her family is unable to care for her at home. Her PMH is notable for STEVE cirrhosis (c/b portal HTN, PHG, HE), possible secondary adrenal insufficiency, h/o E. fecalis PJI, seizure disorder, insulin dependent T2DM, hypothyroidism, GERD, depression, asthma, migraines, and tremor. Today - Afebrile HDS RA - AM labs today: Leukopenia recovering. Anemia improved, persistent macrocytosis & RDW elevation. Stable thrombocytopenia Plt 90k. CMP stable. MELD-Na 11 - LLE DVT US negative yesterday. - Glucose well controlled - L foot/leg discomfort better today - Alert & oriented - Migraine yesterday resolved s/p nurtec Review of Systems Review of Systems: No NAVA CP SOB Cough V/D/C dysuria confusion Mild abdominal discomfort/nausea today Physical Exam Physical Exam: General: Well appearing, no acute distress, lying in bed comfortably CV: Normal rate, regular rhythm. Systolic ejection murmur. Resp: Breathing comfortably on room air. Lungs clear to auscultation bilaterally. No wheezes, crackles, or rhonchi Abd: Soft, no fluid wave, active bowel sounds Skin: No jaundice. Ext: Warm, well perfused. Trace edema b/l. No erythema, no asymmetry. Decreased tenderness to palpation of both shins. Pes cavus deformity bilaterally. Neuro: No asterixis. PERRLA. Constant rhythmic neck rolling tremor. Awake, alert, oriented X3. Able to countdown from 10. Answers questions appropriately Results & Data Results & Data ([facility]) Vital Signs (Past 12 Hours) Vital Signs Temp Pulse Resp BP Pulse Ox 04/09/21 21:59 98.2 F 66 16 109/65 96 PG Care Time/CCT Total # of Minutes Spent Total Time Spent with Patient: Total time spent is greater than 50% in coordination of care (as documented) at patient's floor/unit and/or counseling patient: Coding Level of Care Code 43473 Subseq Hosp Care Lvl 1 Diagnoses Cirrhosis K74.60 Diabetes mellitus E11.9 Seizure R56.9 Myoclonic seizure G40.409 Parkinsonism G20 Hypomagnesemia E83.42 Osteoporosis M81.0 Left foot pain M79.672 Chronic anemia D64.9 Thrombocytopenia D69.6 Depression F32.9 Migraine G43.909
[2021-04-10] MEDS ORDERED: ENOXAPARIN INJ 30 MG/0.3 ML SYR SQ SCH (07:45)
[2021-04-10] MEDS: LACTULOSE SYRUP 20 GM/30 ML UDC PO SCH ×3 (08:52→18:16)
[2021-04-10] MEDS: levETIRAcetam 500 MG TAB PO SCH ×2 (08:52→21:15)
[2021-04-10] MEDS: rOPINIRole HCL 0.25 MG TABLET PO SCH ×2 (08:52→21:13)
[2021-04-10] MEDS: MAGNESIUM OXIDE 400 MG TAB PO SCH ×2 (08:52→21:13)
[2021-04-10] MEDS: rifAXIMin 550 MG TABLET PO SCH ×2 (08:52→21:13)
[2021-04-10] MEDS: ESCITALOPRAM OXALATE 20 MG TAB PO SCH (08:53)
[2021-04-10] MEDS: BENZTROPINE MESYLATE 1 MG TAB PO SCH ×3 (08:53→21:12)
[2021-04-10] MEDS: OXcarbazepine 150 MG TABLET PO SCH ×2 (08:53→21:14)
[2021-04-10] MEDS: PRAVASTATIN SOD 20 MG TAB PO SCH (08:54)
[2021-04-10] MEDS: HYDROCORTISONE 10 MG TAB PO SCH ×2 (08:54→15:27)
[2021-04-10] MEDS: FEXOFENADINE 60 MG TAB PO SCH (08:54)
[2021-04-10] MEDS: DICLOFENAC SOD 1% GEL 100 GM TUBE EXT SCH ×4 (08:54→21:15)
[2021-04-10] MEDS: FUROSEMIDE 20 MG TAB PO SCH (08:54)
[2021-04-10] MEDS: INSULIN GLARGINE SOLOSTAR 100 UNITS/ML 3 ML PEN SC SCH (08:55)
[2021-04-10] MEDS: INSULIN ASPART PER UNIT SC SCH ×4 (09:08→21:12)
[2021-04-10] MEDS: LIDOCAINE 5% 1 PATCH TD SCH (09:14)
[2021-04-10 09:26] LABS: Hematocrit (blood only) 35.4 % (37-47); Hemoglobin 12.2 g/dL (12.0-16.0); Mean Corpuscular Hemoglobin 35.5 pg (25-34); Mean Corpuscular Hgb Conc 34.5 g/dL (32-36); Mean Corpuscular Volume 102.9 fL (80-100); RDW Coefficient of Variation 13.5 % (11.5-14.5); RDW Standard Deviation 50.7 fL (36.4-46.3); Red Blood Count 3.44 M/uL (4.2-5.4); White Blood Count 4.69 K/uL (4.8-10.8)
[2021-04-10 09:30] LABS: Mean Platelet Volume 9.8 fL (7.4-10.4); Platelet Count 90 K/uL (130-400)
[2021-04-10 09:41] LABS: INR 1.2 (0.9-1.1); Prothrombin Time 12.1 Seconds (9.0-12.0)
[2021-04-10 10:27] LABS: Albumin Globulin Ratio 1.2 (0.9-2); Albumin Level 3.2 gm/dl (3.4-5.0); BUN Creatinine Ratio 22.6 (10-20); Bilirubin,Total 1.1 mg/dl (0.2-1.0); Calcium 8.2 mg/dl (8.5-10.1); Creatinine Clr Calc Pharmacy 106.3 ml/min; Est GFR (African American) 117.7 ml/min; Est GFR (Non-African American) 101.5 ml/min; Globulin 2.7 gm/dl (2.5-4.0); Potassium 4.2 mmol/L (3.5-5.1); Total Protein 5.9 gm/dl (6.0-8.3)
[2021-04-10] MEDS: TOPIRAMATE 100 MG TAB PO SCH ×2 (11:15→15:26)
[2021-04-10] MEDS: ENOXAPARIN INJ 40 MG/0.4 ML SYR SQ SCH (13:35)
[2021-04-10] MEDS: MELATONIN 3 MG TAB PO SCH (21:12)
[2021-04-10] MEDS: ACETAMINOPHEN 500 MG TAB PO SCH (21:13)
[2021-04-10] MEDS: FAMOTIDINE 20 MG TAB PO SCH (21:14)
[2021-04-10] MEDS: [UNRECOGNIZED DRUG - REMARK] SQ SCH (21:16)
[2021-04-11] MEDS: LEVOTHYROXINE SODIUM 50 MCG TABLET PO SCH (05:11)
--- NOTE | 2021-04-11 07:21 | Hospitalist Progress Note ---
Date of Service April 11, 2021 Assessment & Plan (1) Cirrhosis: Plan: Clinically stable. Awaiting for placement at [place] Initially hospitalized w/ hepatic encephalopathy 2/2 UTI. Has been resolved, at baseline mentation, for weeks. No clinical evidence of HE. Cirrhosis 2/2 STEVE (presumed, no biopsy per my review) c/b portal hypertension Followed by Hepatology at [facility] + Dr Paris CHAPIN GI Not listed for transplant Decompensated due to recent HE MELD-Na: 11 as of labs 04/10/21 History of HE No varices, variceal hemorrhage (last EGD 06/2020 - mild PHG) No ascites, SBP No HPS or PPHTN No HRS No HCC (last RUQ US 09/2020 & AFP 02/2019 - likely more recently done at [facility]) - Continue Lactulose TID, Rifaximin 550mg BID + zinc. Titrate lactulose as needed to achieve ~3BM/d - Continue pepcid 20mg po qhs (consider PPI in place of H2 amaya if recurrent AMS continues to be a problem) - add PRN dose in day as she is noting some dyspepsia today - Continue furosemide 20mg daily. Not on aldactone. - Periodically assess MELD labs (CMP + INR) - Max 2G APAP per day - Outpatient follow up: Annual RUQ US + AFP for HCC screening (next due 09/2021). EGD q3y for variceal screening (next due 06/2023) (2) Diabetes mellitus: Plan: Type 2 diabetes, well controlled, long-term use of insulin.Last A1c 5.6 05/2020. Follows with Endocrinology/Diabetes education. Last seen on 01/04/21. - Continue Lantus while here, Tresiba as outpt - ISS - Goal blood sugar 100 - 180 - Hydrocortisone BID for suspected adrenal insufficiency. Note endocrinology plans to repeat testing outpatient to confirm diagnosis (3) Seizure: Plan: Stable. No recent seizures in past 1+ year Follows with neurology, EDUARD 10/30/20 - mixed tremor, dyskinesia, seizure history, parkinsonism. EEG 05/2018 generalized spike and slow wave abnormality consistent with underlying generalized seizure disorder. MRI brain 10/2017 unremarkable. Prior failed VNS placement, device explanted. Presently on topiramate, Trileptal and Keppra. - Continue topiramate, trileptal, Keppra - Continue Ropinirole - Continue Benztropine for EPS (4) Parkinsonism: Plan: - Secondary to psych meds, continue benztropine (5) Osteoporosis: Plan: Endocrinology note 12/2020 notes patient on Forteo daily. Started early 2020, plan to continue for 2y. - Continue Forteo (6) Left foot pain: Plan: Gradually improving left foot/leg pain. Chronic. Suspect related to deformity and contracture of foot + bedbound; L foot more medially rotated and also having more plantar deviation and suspect this is due to her worsening ability to ambulate and more sedentary lifestyle. XR Foot 03/29/21: pes cavus deformity and hammertoe deformities with diffuse joint space narrowing Orthotics consult: may need custom shoes, f/u outpatient. No boot available that would help w/ stretching while inpatient. LLE DVT US 04/09/21 negative for DVT - Tylenol 500 mg BID PRN + 1000mg HS (Max 2G/day given cirrhosis) - Voltaren gel & lidocaine patch ordered, she does not feel they are helping. (note adhesive allergy. If rash develops, discontinue lido patch) - Continue heat and alternate with ice for pain, gentle stretching (7) Chronic anemia: Plan: Chronic. Improved/resolved on most recent labs. Suspect chronic hypoproliferative + iatrogenic in s/o prolonged hospitalization. Per chart review, chronic anemia reportedly due to myelodysplastic syndrome (which makes sense given macrocytosis & normal iron studies 12/2020) & follows w/ hematology (no recent note viewable per my chart review) Baseline Hgb 9-2020. Normal iron/ferritin 12/2020. No bleeding. Minimize labs. (8) Thrombocytopenia: Plan: Likely due to portal HTN in s/o cirrhosis. Baseline 80-90s since fall 2020. Previously 150s early 2020 w/ some prior periods of decline into ~80s Monitor intermittently while inpatient Maintain pharmacologic DVT ppx when Plt >50k (9) Depression: Plan: Continue home escitalopram 20mg (10) Migraine: Plan: Continue home nurtec PRN migraine Plan: DVT ppx: Lovenox ppx 40mg q24h + IPCs per patient request Code: Full Dispo: Awaiting SNF placement as unable to care for her at home. Accepted - awaiting bed at [facility]. Appreciate CM Admission and Anticipated Discharge Date Admission Date: January 31, 2021 Jeffry Munson is a 55F admitted 01/31/21 for altered mental status due to UTI & HE which has now resolved to baseline. She is medically stable but has been awaiting SNF placement as her family is unable to care for her at home. Her PMH is notable for STEVE cirrhosis (c/b portal HTN, PHG, HE), possible secondary adrenal insufficiency, h/o E. fecalis PJI, seizure disorder, insulin dependent T2DM, hypothyroidism, GERD, depression, asthma, migraines, and tremor. Today - Afebrile HDS RA - No AM labs - Glucose well controlled, tends to rise during daytime but overall good control - L foot/leg discomfort persists but slightly better - Alert & oriented although confused about month today - Notes some mild persistent belly ache w/o nausea since yesterday, normal BMs & urination Review of Systems Review of Systems: No NAVA CP SOB Cough N/V/D/C dysuria confusion Mild abdominal discomfort today Physical Exam Physical Exam: General: Well appearing, no acute distress, lying in bed comfortably CV: Normal rate, regular rhythm. Systolic ejection murmur. Resp: Breathing comfortably on room air. Lungs clear to auscultation bilaterally. No wheezes, crackles, or rhonchi Abd: Soft, no fluid wave, active bowel sounds, mild central tenderness to palpation Skin: No jaundice. Ext: Warm, well perfused. Trace edema b/l. No erythema, no asymmetry. No tenderness to palpation. Pes cavus deformity & internal rotation bilaterally. Neuro: No asterixis. PERRLA. Constant rhythmic neck rolling tremor. Awake, alert, oriented to self/place/year (thought August not Mar today). Able to countdown from 10. Answers questions appropriately Results & Data Results & Data ([facility]) Vital Signs (Past 12 Hours) Vital Signs Temp Pulse Resp BP Pulse Ox 04/10/21 21:47 98.4 F 60 16 113/72 97 PG Care Time/CCT Total # of Minutes Spent Total Time Spent with Patient: Total time spent is greater than 50% in coordination of care (as documented) at patient's floor/unit and/or counseling patient: Coding Level of Care Code 71596 Subseq Hosp Care Lvl 1 Diagnoses Cirrhosis K74.60 Diabetes mellitus E11.9 Seizure R56.9 Parkinsonism G20 Osteoporosis M81.0 Left foot pain M79.672 Chronic anemia D64.9 Thrombocytopenia D69.6 Depression F32.9 Migraine G43.909
[2021-04-11] MEDS: rifAXIMin 550 MG TABLET PO SCH ×2 (08:43→21:49)
[2021-04-11] MEDS: levETIRAcetam 500 MG TAB PO SCH ×2 (08:43→21:50)
[2021-04-11] MEDS: MAGNESIUM OXIDE 400 MG TAB PO SCH ×2 (08:43→21:49)
[2021-04-11] MEDS: FUROSEMIDE 20 MG TAB PO SCH (08:43)
[2021-04-11] MEDS: LACTULOSE SYRUP 20 GM/30 ML UDC PO SCH ×3 (08:43→17:47)
[2021-04-11] MEDS: TOPIRAMATE 100 MG TAB PO SCH ×2 (08:44→21:48)
[2021-04-11] MEDS: FEXOFENADINE 60 MG TAB PO SCH (08:44)
[2021-04-11] MEDS: LIDOCAINE 5% 1 PATCH TD SCH (08:44)
[2021-04-11] MEDS: BENZTROPINE MESYLATE 1 MG TAB PO SCH ×3 (08:44→21:49)
[2021-04-11] MEDS: ESCITALOPRAM OXALATE 20 MG TAB PO SCH (08:44)
[2021-04-11] MEDS: rOPINIRole HCL 0.25 MG TABLET PO SCH ×2 (08:44→21:50)
[2021-04-11] MEDS: OXcarbazepine 150 MG TABLET PO SCH ×2 (08:44→21:49)
[2021-04-11] MEDS: PRAVASTATIN SOD 20 MG TAB PO SCH (08:45)
[2021-04-11] MEDS: HYDROCORTISONE 10 MG TAB PO SCH ×2 (08:46→15:27)
[2021-04-11] MEDS: ENOXAPARIN INJ 40 MG/0.4 ML SYR SQ SCH (08:47)
[2021-04-11] MEDS: DICLOFENAC SOD 1% GEL 100 GM TUBE EXT SCH ×4 (08:47→21:51)
[2021-04-11] MEDS: INSULIN GLARGINE SOLOSTAR 100 UNITS/ML 3 ML PEN SC SCH (08:56)
[2021-04-11] MEDS: INSULIN ASPART PER UNIT SC SCH ×4 (08:59→21:01)
[2021-04-11] MEDS ORDERED: FAMOTIDINE 20 MG TAB PO PRN (09:15)
[2021-04-11] MEDS: PROMETHAZINE HCL 25 MG TAB PO PRN (13:04)
[2021-04-11] MEDS: [UNRECOGNIZED DRUG - REMARK] PO PRN (20:02)
[2021-04-11] MEDS: MELATONIN 3 MG TAB PO SCH (21:48)
[2021-04-11] MEDS: ACETAMINOPHEN 500 MG TAB PO SCH (21:48)
[2021-04-11] MEDS: FAMOTIDINE 20 MG TAB PO SCH (21:49)
[2021-04-11] MEDS: [UNRECOGNIZED DRUG - REMARK] SQ SCH (21:57)
[2021-04-12] MEDS: ACETAMINOPHEN 500 MG TAB PO PRN (05:13)
[2021-04-12] MEDS: LEVOTHYROXINE SODIUM 50 MCG TABLET PO SCH (06:03)
--- NOTE | 2021-04-12 07:17 | Hospitalist Progress Note ---
Date of Service April 12, 2021 Assessment & Plan (1) Cirrhosis: Plan: Clinically stable. Awaiting for placement at [place]/[facility] Initially hospitalized w/ hepatic encephalopathy 2/2 UTI. Has been resolved, at baseline mentation, for weeks. No clinical evidence of HE. Cirrhosis 2/2 STEVE (presumed, no biopsy per my review) c/b portal hypertension Followed by Hepatology at [facility] + Dr Paris CHAPIN GI Not listed for transplant Decompensated due to recent HE MELD-Na: 11 as of labs 04/10/21 History of HE No varices, variceal hemorrhage (last EGD 06/2020 - mild PHG) No ascites, SBP No HPS or PPHTN No HRS No HCC (last RUQ US 09/2020 & AFP 02/2019 - likely more recently done at [facility]) - Continue Lactulose TID, Rifaximin 550mg BID + zinc. Titrate lactulose as needed to achieve ~3BM/d - Continue pepcid 20mg po qhs (consider PPI in place of H2 amaya if recurrent AMS continues to be a problem) - add PRN dose in day as she is noting some dyspepsia today - Continue furosemide 20mg daily. Not on aldactone. - Periodically assess MELD labs (CMP + INR) - Max 2G APAP per day - Outpatient follow up: Annual RUQ US + AFP for HCC screening (next due 09/2021). EGD q3y for variceal screening (next due 06/2023) (2) Diabetes mellitus: Plan: Type 2 diabetes, well controlled, long-term use of insulin.Last A1c 5.6 05/2020. Follows with Endocrinology/Diabetes education. Last seen on 01/04/21. - Continue Lantus while here, Tresiba as outpt - ISS - Goal blood sugar 100 - 180 - Hydrocortisone BID for suspected adrenal insufficiency. Note endocrinology plans to repeat testing outpatient to confirm diagnosis (3) Seizure: Plan: Stable. No recent seizures in past 1+ year Follows with neurology, EDUARD 10/30/20 - mixed tremor, dyskinesia, seizure history, parkinsonism. EEG 05/2018 generalized spike and slow wave abnormality consistent with underlying generalized seizure disorder. MRI brain 10/2017 unremarkable. Prior failed VNS placement, device explanted. Presently on topiramate, Trileptal and Keppra. - Continue topiramate, trileptal, Keppra - Continue Ropinirole - Continue Benztropine for EPS (4) Parkinsonism: Plan: - Secondary to psych meds, continue benztropine (5) Osteoporosis: Plan: Endocrinology note 12/2020 notes patient on Forteo daily. Started early 2020, plan to continue for 2y. - Continue Forteo (6) Left foot pain: Plan: Gradually improving left foot/leg pain. Chronic. Suspect related to deformity and contracture of foot + bedbound; L foot more medially rotated and also having more plantar deviation and suspect this is due to her worsening ability to ambulate and more sedentary lifestyle. XR Foot 03/29/21: pes cavus deformity and hammertoe deformities with diffuse joint space narrowing Orthotics consult: may need custom shoes, f/u outpatient. No boot available that would help w/ stretching while inpatient. LLE DVT US 04/09/21 negative for DVT - Tylenol 500 mg BID PRN + 1000mg HS (Max 2G/day given cirrhosis) - Voltaren gel & lidocaine patch ordered, she does not feel they are helping. (note adhesive allergy. If rash develops, discontinue lido patch) - Continue heat and alternate with ice for pain, gentle stretching (7) Chronic anemia: Plan: Chronic. Improved/resolved on most recent labs. Suspect chronic hypoproliferative + iatrogenic in s/o prolonged hospitalization. Per chart review, chronic anemia reportedly due to myelodysplastic syndrome (which makes sense given macrocytosis & normal iron studies 12/2020) & follows w/ hematology (no recent note viewable per my chart review) Baseline Hgb 9-2020. Normal iron/ferritin 12/2020. No bleeding. Minimize labs. (8) Thrombocytopenia: Plan: Likely due to portal HTN in s/o cirrhosis. Baseline 80-90s since fall 2020. Previously 150s early 2020 w/ some prior periods of decline into ~80s Monitor intermittently while inpatient Maintain pharmacologic DVT ppx when Plt >50k (9) Depression: Plan: Continue home escitalopram 20mg (10) Migraine: Plan: Continue home nurtec PRN migraine (11) Left lateral abdominal pain: Plan: Left sided abdominal pain. No fevers or stool change to suggest diverticulitis. No association w/ eating, not characteristic of heartburn or dyspepsia. No ascites as of last abd us 09/2020 & none apparent clinically so low suspicion for SBP. Will obtain abd US to ensure no ascites. Highest suspicion is that this is positional related to prolonged time in bed. - Recommended ongoing APAP. Educated that we would like to avoid oxycodone as much as possible to avoid precipitating delirium/HE. - Encouraged repositioning. - Patient declines topical therapies today, will continue to offer Plan: DVT ppx: Lovenox ppx 40mg q24h + IPCs per patient request Code: Full Dispo: Awaiting SNF placement as unable to care for her at home. Accepted - awaiting bed at [place]. Appreciate CM Admission and Anticipated Discharge Date Admission Date: January 31, 2021 Jeffry Munson is a 55F admitted 01/31/21 for altered mental status due to UTI & HE which has now resolved to baseline. She is medically stable but has been awaiting SNF placement as her family is unable to care for her at home. Her PMH is notable for STEVE cirrhosis (c/b portal HTN, PHG, HE), possible secondary adrenal insufficiency, h/o E. fecalis PJI, seizure disorder, insulin dependent T2DM, hypothyroidism, GERD, depression, asthma, migraines, and tremor. Today - Afebrile HDS RA - No AM labs - Glucose well controlled, 100-150s yesterday - Alert & oriented - Reports L lateral abdominal pain is worse today. Not affected by eating. Having normal BMs & urination. Not affected by position. Not superficial, doesn't feel like GERD. Not interested in ice/heat/topicals for treatment, requesting oxycodone Review of Systems Review of Systems: No NAVA CP SOB Cough N/V/D/C dysuria confusion Ongoing abdominal discomfort today as per HPI Physical Exam Physical Exam: General: Well appearing, no acute distress, lying in bed comfortably CV: Normal rate, regular rhythm. Systolic ejection murmur. Resp: Breathing comfortably on room air. Lungs clear to auscultation bilaterally. No wheezes, crackles, or rhonchi Abd: Soft, no fluid wave, active bowel sounds, tenderness to light palpation along L lateral abdomen w/ no bruising/rash/mass. No rebound tenderness. Skin: No jaundice. Ext: Warm, well perfused. Trace edema b/l. No erythema, no asymmetry. No tenderness to palpation. Pes cavus deformity & internal rotation bilaterally. Neuro: No asterixis. PERRLA. Constant rhythmic neck rolling tremor. Awake, alert, oriented to self/place/year/month. Answers questions appropriately Results & Data Results & Data ([facility]) Vital Signs (Past 12 Hours) Vital Signs Temp Pulse Resp BP Pulse Ox 04/11/21 22:01 98.1 F 59 L 16 121/54 L 96 PG Care Time/CCT Total # of Minutes Spent Total Time Spent with Patient: Total time spent is greater than 50% in coordination of care (as documented) at patient's floor/unit and/or counseling patient: Coding Level of Care Code 34687 Subseq Hosp Care Lvl 1 Diagnoses Cirrhosis K74.60 Diabetes mellitus E11.9 Seizure R56.9 Parkinsonism G20 Osteoporosis M81.0 Left foot pain M79.672 Chronic anemia D64.9 Thrombocytopenia D69.6 Depression F32.9 Migraine G43.909 Left lateral abdominal pain R10.9
[2021-04-12] MEDS: BENZTROPINE MESYLATE 1 MG TAB PO SCH ×3 (08:18→20:37)
[2021-04-12] MEDS: rOPINIRole HCL 0.25 MG TABLET PO SCH ×2 (08:18→20:35)
[2021-04-12] MEDS: TOPIRAMATE 100 MG TAB PO SCH ×2 (08:18→20:35)
[2021-04-12] MEDS: levETIRAcetam 500 MG TAB PO SCH ×2 (08:18→20:36)
[2021-04-12] MEDS: OXcarbazepine 150 MG TABLET PO SCH ×2 (08:18→20:36)
[2021-04-12] MEDS: rifAXIMin 550 MG TABLET PO SCH ×2 (08:18→20:35)
[2021-04-12] MEDS: MAGNESIUM OXIDE 400 MG TAB PO SCH ×2 (08:18→20:36)
[2021-04-12] MEDS: PRAVASTATIN SOD 20 MG TAB PO SCH (08:19)
[2021-04-12] MEDS: ESCITALOPRAM OXALATE 20 MG TAB PO SCH (08:19)
[2021-04-12] MEDS: DICLOFENAC SOD 1% GEL 100 GM TUBE EXT SCH ×4 (08:19→20:37)
[2021-04-12] MEDS: ENOXAPARIN INJ 40 MG/0.4 ML SYR SQ SCH (08:19)
[2021-04-12] MEDS: FEXOFENADINE 60 MG TAB PO SCH (08:19)
[2021-04-12] MEDS: LACTULOSE SYRUP 20 GM/30 ML UDC PO SCH ×3 (08:20→17:40)
[2021-04-12] MEDS: FUROSEMIDE 20 MG TAB PO SCH (08:20)
[2021-04-12] MEDS: HYDROCORTISONE 10 MG TAB PO SCH ×2 (08:20→15:33)
[2021-04-12] MEDS: LIDOCAINE 5% 1 PATCH TD SCH (08:21)
[2021-04-12] MEDS: INSULIN ASPART PER UNIT SC SCH ×4 (08:50→20:46)
[2021-04-12] MEDS: INSULIN GLARGINE SOLOSTAR 100 UNITS/ML 3 ML PEN SC SCH (08:51)
[2021-04-12] MEDS ORDERED: ARTIFICIAL TEARS OP PRN (09:32)
--- NOTE | 2021-04-12 11:40 | Ultrasound Report ---
US abdomen ltd ascites HISTORY: 55 years-old Female abd pain, cirrhosis, no h/o ascites acute generalized abdominal pain wi th history of cirrhosis COMPARISON: CT abdomen and pelvis 05/09/2020 TECHNIQUE: Multiple real-time sonographic images of the abdominal abdomen were obtained assessing gra yscale appearance FINDINGS/IMPRESSION: No abdominal ascites identified. ACT 112: Negative or not required by law. The above report was generated using voice recognition software. It may contain grammatical, syntax o r spelling errors. Electronically signed by: Ruben Segura M.D. 04/12/2021 11:39 AM
[2021-04-12] MEDS: LIDOCAINE VISCOUS 2% SOLN 60 ML, diphenhydrAMINE Syrup 150 MG, ALUMINUM/MAGNESIUM SUSP ... PO PRN (18:10)
[2021-04-12] MEDS: [UNRECOGNIZED DRUG - REMARK] SQ SCH (20:36)
[2021-04-12] MEDS: ACETAMINOPHEN 500 MG TAB PO SCH (20:37)
[2021-04-12] MEDS: FAMOTIDINE 20 MG TAB PO SCH (20:37)
[2021-04-12] MEDS: MELATONIN 3 MG TAB PO SCH (20:38)
[2021-04-13] MEDS: LEVOTHYROXINE SODIUM 50 MCG TABLET PO SCH (06:05)
--- NOTE | 2021-04-13 07:19 | Hospitalist Progress Note ---
Date of Service April 13, 2021 Assessment & Plan (1) Cirrhosis: Plan: Clinically stable. Awaiting for placement at [place]/[facility] Initially hospitalized w/ hepatic encephalopathy 2/2 UTI. Has been resolved, at baseline mentation, for weeks. No clinical evidence of HE. Cirrhosis 2/2 STEVE (presumed, no biopsy per my review) c/b portal hypertension Followed by Hepatology at [facility] + Dr Paris CHAPIN GI Not listed for transplant Decompensated due to recent HE MELD-Na: 11 as of labs 04/10/21 History of HE No varices, variceal hemorrhage (last EGD 06/2020 - mild PHG) No ascites, SBP No HPS or PPHTN No HRS No HCC (last RUQ US 09/2020 & AFP 02/2019 - likely more recently done at [facility]) - Continue Lactulose TID, Rifaximin 550mg BID + zinc. Titrate lactulose as needed to achieve ~3BM/d - Continue pepcid 20mg po qhs (consider PPI in place of H2 amaya if recurrent AMS continues to be a problem) - add PRN dose in day as she is noting some dyspepsia today - Continue furosemide 20mg daily. Not on aldactone. - Periodically assess MELD labs (CMP + INR) - Max 2G APAP per day - Outpatient follow up: Annual RUQ US + AFP for HCC screening (next due 09/2021). EGD q3y for variceal screening (next due 06/2023) (2) Diabetes mellitus: Plan: Type 2 diabetes, well controlled, long-term use of insulin.Last A1c 5.6 05/2020. Follows with Endocrinology/Diabetes education. Last seen on 01/04/21. - Continue Lantus while here, Tresiba as outpt - ISS - Goal blood sugar 100 - 180. may bring dexcom to see if we could use that to avoid frequent finger sticks. - Hydrocortisone BID for suspected adrenal insufficiency. Note endocrinology plans to repeat testing outpatient to confirm diagnosis (3) Seizure: Plan: Stable. No recent seizures in past 1+ year Follows with neurology, EDUARD 10/30/20 - mixed tremor, dyskinesia, seizure history, parkinsonism. EEG 05/2018 generalized spike and slow wave abnormality consistent with underlying generalized seizure disorder. MRI brain 10/2017 unremarkable. Prior failed VNS placement, device explanted. Presently on topiramate, Trileptal and Keppra. - Continue topiramate, trileptal, Keppra - Continue Ropinirole - Continue Benztropine for EPS (4) Parkinsonism: Plan: - Secondary to psych meds, continue benztropine (5) Osteoporosis: Plan: Endocrinology note 12/2020 notes patient on Forteo daily. Started early 2020, plan to continue for 2y. - Continue Forteo (6) Left foot pain: Plan: Gradually improving left foot/leg pain. Chronic. Suspect related to deformity and contracture of foot + bedbound; L foot more medially rotated and also having more plantar deviation and suspect this is due to her worsening ability to ambulate and more sedentary lifestyle. XR Foot 03/29/21: pes cavus deformity and hammertoe deformities with diffuse joint space narrowing Orthotics consult: may need custom shoes, f/u outpatient. No boot available that would help w/ stretching while inpatient. LLE DVT US 04/09/21 negative for DVT - Tylenol 500 mg BID PRN + 1000mg HS (Max 2G/day given cirrhosis) - Voltaren gel & lidocaine patch ordered, she does not feel they are helping. (note adhesive allergy. If rash develops, discontinue lido patch) - Continue heat and alternate with ice for pain, gentle stretching (7) Chronic anemia: Plan: Chronic. Improved/resolved on most recent labs. Suspect chronic hypoproliferative + iatrogenic in s/o prolonged hospitalization. Per chart review, chronic anemia reportedly due to myelodysplastic syndrome (which makes sense given macrocytosis & normal iron studies) & follows w/ hematology (no recent note viewable per my chart review) Baseline Hgb 9-11 2020. Normal iron/ferritin 12/2020. No bleeding. Minimize labs. (8) Thrombocytopenia: Plan: Likely due to portal HTN in s/o cirrhosis. Baseline 80-90s since fall 2020. Previously 150s early 2020 w/ some prior periods of decline into ~80s Monitor intermittently while inpatient Maintain pharmacologic DVT ppx when Plt >50k (9) Depression: Plan: Continue home escitalopram 20mg (10) Migraine: Plan: Continue home nurtec PRN migraine (11) Left lateral abdominal pain: Plan: Resolved 04/13/21 Left sided abdominal pain. No fevers or stool change to suggest diverticulitis. No association w/ eating, not characteristic of heartburn or dyspepsia. No ascites on US ascites study 04/12/21 so no concern for SBP. Highest suspicion is that this was positional related to prolonged time in bed. Plan: DVT ppx: Lovenox ppx 40mg q24h + IPCs per patient request Code: Full Dispo: Awaiting SNF placement as unable to care for her at home. Accepted - awaiting bed at [facility]. Appreciate CM Admission and Anticipated Discharge Date Admission Date: January 31, 2021 Jeffry Munson is a 55F admitted 01/31/21 for altered mental status due to UTI & HE which has now resolved to baseline. She is medically stable but has been awaiting SNF placement as her family is unable to care for her at home. Her PMH is notable for STEVE cirrhosis (c/b portal HTN, PHG, HE), possible secondary adrenal insufficiency, h/o E. fecalis PJI, seizure disorder, insulin dependent T2DM, hypothyroidism, GERD, depression, asthma, migraines, and tremor. Today - Afebrile HDS RA - No AM labs - Glucose 100-180s yesterday, one elevated value at 246 last evening - US ascites survey yesterday negative for ascites - Alert & oriented - Feeling well today sitting up in chair. Belly pain resolved Review of Systems Review of Systems: No CP SOB Cough N/V/D/C dysuria confusion abd discomfort resolved mild leg pain & NAVA today Physical Exam Physical Exam: General: Well appearing, no acute distress, sitting up in chair CV: Normal rate, regular rhythm. Systolic ejection murmur. Resp: Breathing comfortably on room air. Lungs clear to auscultation bilaterally. No wheezes, crackles, or rhonchi Abd: Soft, no fluid wave, active bowel sounds, nontender Skin: No jaundice. Ext: Warm, well perfused. Trace edema b/l. No erythema, no asymmetry. No tenderness to palpation. Pes cavus deformity & internal rotation bilaterally. Neuro: No asterixis. Constant rhythmic neck rolling tremor. Awake, alert, oriented to self/place/year/month. Answers questions appropriately Results & Data Results & Data ([facility]) Vital Signs (Past 12 Hours) Vital Signs Temp Pulse Resp BP Pulse Ox 04/12/21 22:14 98.1 F 66 18 115/64 96 PG Care Time/CCT Total # of Minutes Spent Total Time Spent with Patient: Total time spent is greater than 50% in coordination of care (as documented) at patient's floor/unit and/or counseling patient: Coding Level of Care Code 87391 Subseq Hosp Care Lvl 1 Diagnoses Cirrhosis K74.60 Diabetes mellitus E11.9 Seizure R56.9 Parkinsonism G20 Osteoporosis M81.0 Left foot pain M79.672 Chronic anemia D64.9 Thrombocytopenia D69.6 Depression F32.9 Migraine G43.909 Left lateral abdominal pain R10.9
[2021-04-13] MEDS: HYDROCORTISONE 10 MG TAB PO SCH ×2 (09:12→14:03)
[2021-04-13] MEDS: PRAVASTATIN SOD 20 MG TAB PO SCH (09:12)
[2021-04-13] MEDS: FUROSEMIDE 20 MG TAB PO SCH (09:12)
[2021-04-13] MEDS: BENZTROPINE MESYLATE 1 MG TAB PO SCH ×3 (09:12→20:55)
[2021-04-13] MEDS: ESCITALOPRAM OXALATE 20 MG TAB PO SCH (09:12)
[2021-04-13] MEDS: FEXOFENADINE 60 MG TAB PO SCH (09:12)
[2021-04-13] MEDS: OXcarbazepine 150 MG TABLET PO SCH ×2 (09:12→20:52)
[2021-04-13] MEDS: levETIRAcetam 500 MG TAB PO SCH ×2 (09:13→20:54)
[2021-04-13] MEDS: rOPINIRole HCL 0.25 MG TABLET PO SCH ×2 (09:13→20:55)
[2021-04-13] MEDS: MAGNESIUM OXIDE 400 MG TAB PO SCH ×2 (09:13→20:54)
[2021-04-13] MEDS: TOPIRAMATE 100 MG TAB PO SCH ×2 (09:13→20:51)
[2021-04-13] MEDS: rifAXIMin 550 MG TABLET PO SCH ×2 (09:13→20:53)
[2021-04-13] MEDS: ENOXAPARIN INJ 40 MG/0.4 ML SYR SQ SCH ×2 (09:14→09:28)
[2021-04-13] MEDS: LACTULOSE SYRUP 20 GM/30 ML UDC PO SCH ×3 (09:15→17:32)
[2021-04-13] MEDS: DICLOFENAC SOD 1% GEL 100 GM TUBE EXT SCH ×4 (09:15→20:56)
[2021-04-13] MEDS: LIDOCAINE 5% 1 PATCH TD SCH (09:15)
[2021-04-13] MEDS: INSULIN ASPART PER UNIT SC SCH ×4 (09:16→21:03)
[2021-04-13] MEDS: INSULIN GLARGINE SOLOSTAR 100 UNITS/ML 3 ML PEN SC SCH (09:18)
[2021-04-13] MEDS: FAMOTIDINE 20 MG TAB PO SCH (20:54)
[2021-04-13] MEDS: ACETAMINOPHEN 500 MG TAB PO SCH (20:56)
[2021-04-13] MEDS: MELATONIN 3 MG TAB PO SCH (21:01)
[2021-04-13] MEDS: [UNRECOGNIZED DRUG - REMARK] SQ SCH (21:04)
[2021-04-14] MEDS: LEVOTHYROXINE SODIUM 50 MCG TABLET PO SCH (05:54)
--- NOTE | 2021-04-14 08:38 | Hospitalist Progress Note ---
Date of Service April 14, 2021 Assessment & Plan (1) Cirrhosis: Plan: Clinically stable. Awaiting for placement at [place] Initially hospitalized w/ hepatic encephalopathy 2/2 UTI. Has been resolved, at baseline mentation, for weeks. No clinical evidence of HE. Cirrhosis 2/2 STEVE (presumed, no biopsy per my review) c/b portal hypertension Followed by Hepatology at [facility] + Dr Paris [facility] Not listed for transplant Decompensated due to recent HE MELD-Na: 11 as of labs 04/10/21 History of HE No varices, variceal hemorrhage (last EGD 06/2020 - mild PHG) No ascites, SBP No HPS or PPHTN No HRS No HCC (last RUQ US 09/2020 & AFP 02/2019 - likely more recently done at [facility]) Continue Lactulose TID, Rifaximin 550mg BID + zinc. --> Titrate lactulose as needed to achieve ~3BM/d. +BM this morning. Continue pepcid 20mg po qhs (consider PPI in place of H2 amaya if recurrent AMS continues to be a problem) - added PRN dose in day as noticed dyspepsia. no issues today Continue furosemide 20mg daily. Not on aldactone. - Periodically assess MELD labs (CMP + INR) - Max 2G APAP per day - Outpatient follow up: Annual RUQ US + AFP for HCC screening (next due 09/2021). EGD q3y for variceal screening (next due 06/2023) Attempted to get off bedside commode to floor last evening, and no longer using bedside commode today and rather bedpan, unless someone able to stay with her to prevent fall given prior history/care plan in place Awaiting placement (2) Diabetes mellitus: Plan: Type 2 diabetes, well controlled, long-term use of insulin.Last A1c 5.6 05/2020. Follows with Endocrinology/Diabetes education. Last seen on 01/04/21. - Continue Lantus while here, Tresiba as outpt - ISS - Goal blood sugar 100 - 180. Hydrocortisone BID for suspected adrenal insufficiency. --> Note endocrinology plans to repeat testing outpatient to confirm diagnosis BSGs acceptable, monitor may bring dexcom to see if we could use that to avoid frequent finger sticks. (3) Seizure: Plan: Stable. No recent seizures in past 1+ year Follows with neurology, EDUARD 10/30/20 - mixed tremor, dyskinesia, seizure history, parkinsonism. EEG 05/2018 generalized spike and slow wave abnormality consistent with underlying generalized seizure disorder. MRI brain 10/2017 unremarkable. Prior failed VNS placement, device explanted. Presently on topiramate, Trileptal and Keppra. - Continue topiramate, trileptal, Keppra - Continue Ropinirole - Continue Benztropine for EPS (4) Parkinsonism: Plan: - Secondary to psych meds, continue benztropine (5) Osteoporosis: Plan: Endocrinology note 12/2020 notes patient on Forteo daily. Started early 2020, plan to continue for 2y. - Continue Forteo (6) Left foot pain: Plan: Gradually improving left foot/leg pain. Chronic. Suspect related to deformity and contracture of foot + bedbound; L foot more medially rotated and also having more plantar deviation and suspect this is due to her worsening ability to ambulate and more sedentary lifestyle. XR Foot 03/29/21: pes cavus deformity and hammertoe deformities with diffuse joint space narrowing Orthotics consult: may need custom shoes, f/u outpatient. No boot available that would help w/ stretching while inpatient. LLE DVT US 04/09/21 negative for DVT - Tylenol 500 mg BID PRN + 1000mg HS (Max 2G/day given cirrhosis) - Voltaren gel & lidocaine patch ordered, she does not feel they are helping. (note adhesive allergy. If rash develops, discontinue lido patch) - Continue heat and alternate with ice for pain, gentle stretching no issues reported today (7) Chronic anemia: Plan: Chronic. Improved/resolved on most recent labs. Suspect chronic hypoproliferative + iatrogenic in s/o prolonged hospitalization. Per chart review, chronic anemia reportedly due to myelodysplastic syndrome (which makes sense given macrocytosis & normal iron studies) & follows w/ hematology (no recent note viewable per my chart review) Baseline Hgb 9-11 2020. Normal iron/ferritin 12/2020. No bleeding. Minimize labs. (8) Thrombocytopenia: Plan: Likely due to portal HTN in s/o cirrhosis. Baseline 80-90s since fall 2020. Previously 150s early 2020 w/ some prior periods of decline into ~80s Monitor intermittently while inpatient Maintain pharmacologic DVT ppx with Lovenox as Plt >50k, although likely autoanticoagulated given liver disease, INR 1.2 (9) Depression: Plan: Continue home escitalopram 20mg (10) Migraine: Plan: Continue home nurtec PRN migraine (11) Left lateral abdominal pain: Plan: Resolved 04/13/21 Left sided abdominal pain. No fevers or stool change to suggest diverticulitis. No association w/ eating, not characteristic of heartburn or dyspepsia. No ascites on US ascites study 04/12/21 so no concern for SBP. Highest suspicion is that this was positional related to prolonged time in bed --> no issues 04/14 Plan: DVT ppx: Lovenox ppx 40mg q24h + IPCs per patient request Code: Full Dispo: Awaiting SNF placement as unable to care for her at home. Accepted - awaiting bed at [facility]. Appreciate CM Admission and Anticipated Discharge Date Admission Date: January 31, 2021 Subjective patient eval this morning no acute issues last BM this morning no abdominal pain no fever/chill/cp/sob/abd pain/nausea/vomiting at this time. episode issue with omelette and would like to avoid eggs in the future. no issues with breakfast upset staff not letting her use bedside commode and will discuss/eval for reason why to determine [per RN, patient up to bedside commode last night and attempted to get herself to ground. high fall risk. continuing to have bed rails up/low bed/use bedpan for now due to such. stated this was after told her they might have a bed for her somewhere this week. Review of Systems Review of Systems: All systems reviewed & are unremarkable except as noted in HPI & below Physical Exam Physical Exam: General Appearance: Frail; in NAD who is A&O x 3, chronic choreiform movements/TD/tongue rolling/lip smacking from antipsychotic medications Head atraumatic, normocephalic, hearing intact trachea midline without deviation, no JVD Resp: CTAB, no distress, on room air CV: RRR, no edema GI: +BS, soft, non-tender Ext: no swelling/erythema, medially rotated and downward placement of ankle/foot bilaterally Psych: AOx3, cooperative Neuro: speech clear, movements suggestive of TD from antipsychotic medications (not new finding) y Results & Data Results & Data ([facility]) Vital Signs (Past 12 Hours) Vital Signs Temp Pulse Resp BP BP Pulse Ox 04/14/21 07:53 36.7 C 60 16 127/63 96 04/13/21 22:15 36.9 C 75 17 129/72 94 Laboratory Results 04/14/21 04/14/21 04/13/21 Range/Units 12:17 08:18 20:49 POC Glucose 120 H 83 167 H (70-99) mg/dl 04/13/21 Range/Units 17:09 POC Glucose 142 H (70-99) mg/dl PG Care Time/CCT Total # of Minutes Spent Total Time Spent with Patient: Total time spent is greater than 50% in coordination of care (as documented) at patient's floor/unit and/or counseling patient: Coding Level of Care Code 53991 Subseq Hosp Care Lvl 1 Diagnoses Cirrhosis K74.60 Diabetes mellitus E11.9 Seizure R56.9 Parkinsonism G20 Osteoporosis M81.0 Left foot pain M79.672 Chronic anemia D64.9 Thrombocytopenia D69.6 Depression F32.9 Migraine G43.909 Left lateral abdominal pain R10.9
[2021-04-14] MEDS: TOPIRAMATE 100 MG TAB PO SCH ×2 (09:59→20:24)
[2021-04-14] MEDS: MAGNESIUM OXIDE 400 MG TAB PO SCH ×2 (09:59→20:23)
[2021-04-14] MEDS: BENZTROPINE MESYLATE 1 MG TAB PO SCH ×3 (09:59→20:22)
[2021-04-14] MEDS: OXcarbazepine 150 MG TABLET PO SCH ×2 (10:00→20:21)
[2021-04-14] MEDS: HYDROCORTISONE 10 MG TAB PO SCH ×4 (10:02→15:23)
[2021-04-14] MEDS: PRAVASTATIN SOD 20 MG TAB PO SCH (10:02)
[2021-04-14] MEDS: FEXOFENADINE 60 MG TAB PO SCH (10:02)
[2021-04-14] MEDS: rifAXIMin 550 MG TABLET PO SCH ×2 (10:02→20:20)
[2021-04-14] MEDS: rOPINIRole HCL 0.25 MG TABLET PO SCH ×2 (10:02→20:25)
[2021-04-14] MEDS: levETIRAcetam 500 MG TAB PO SCH ×2 (10:04→20:21)
[2021-04-14] MEDS: LIDOCAINE 5% 1 PATCH TD SCH (10:05)
[2021-04-14] MEDS: ESCITALOPRAM OXALATE 20 MG TAB PO SCH (10:05)
[2021-04-14] MEDS: FUROSEMIDE 20 MG TAB PO SCH (10:05)
[2021-04-14] MEDS: ENOXAPARIN INJ 40 MG/0.4 ML SYR SQ SCH (10:06)
[2021-04-14] MEDS: LACTULOSE SYRUP 20 GM/30 ML UDC PO SCH ×3 (10:07→18:22)
[2021-04-14] MEDS: INSULIN GLARGINE SOLOSTAR 100 UNITS/ML 3 ML PEN SC SCH (10:12)
[2021-04-14] MEDS: INSULIN ASPART PER UNIT SC SCH ×4 (10:13→22:06)
[2021-04-14] MEDS: DICLOFENAC SOD 1% GEL 100 GM TUBE EXT SCH ×5 (15:23→22:06)
[2021-04-14] MEDS: ACETAMINOPHEN 500 MG TAB PO SCH (20:20)
[2021-04-14] MEDS: FAMOTIDINE 20 MG TAB PO SCH (20:22)
[2021-04-14] MEDS: [UNRECOGNIZED DRUG - REMARK] SQ SCH (20:29)
[2021-04-14] MEDS: MELATONIN 3 MG TAB PO SCH (20:29)
[2021-04-15] MEDS: LEVOTHYROXINE SODIUM 50 MCG TABLET PO SCH (06:34)
--- NOTE | 2021-04-15 07:32 | Hospitalist Progress Note ---
Date of Service April 15, 2021 Assessment & Plan (1) Cirrhosis: Plan: Clinically stable. Awaiting for placement at [place] Initially hospitalized w/ hepatic encephalopathy 2/2 UTI. Has been resolved, at baseline mentation, for weeks. No clinical evidence of HE. Cirrhosis 2/2 STEVE (presumed, no biopsy per my review) c/b portal hypertension Followed by Hepatology at [facility] + Dr Paris [place] [facility] Not listed for transplant Decompensated due to recent HE MELD-Na: 11 as of labs 04/10/21 History of HE No varices, variceal hemorrhage (last EGD 06/2020 - mild PHG) No ascites, SBP No HPS or PPHTN No HRS No HCC (last RUQ US 09/2020 & AFP 02/2019 - likely more recently done at [facility]) Continue Lactulose TID, Rifaximin 550mg BID + zinc. --> Titrate lactulose as needed to achieve ~3BM/d. +BM this morning. Only having 1-2BM/day. +asterixis. Ammonia level 120 on AM labs and will increas lactulose to 30m gTID and monitor Continue pepcid 20mg po qhs (consider PPI in place of H2 amaya if recurrent AMS continues to be a problem) - added PRN dose in day as noticed dyspepsia. no issues today Continue furosemide 20mg daily. Not on aldactone. - Periodically assess MELD labs (CMP + INR) - Max 2G APAP per day - Outpatient follow up: Annual RUQ US + AFP for HCC screening (next due 09/2021). EGD q3y for variceal screening (next due 06/2023) Attempted to get off bedside commode to floor evening 04/14, using bedside commode at this time. Titration up in lactulose as above, and continue to monitor closely as she is aware possible placement this week and given prior hospitalizations/fall/care plan would like to prevent falls Awaiting placement (2) Diabetes mellitus: Plan: Type 2 diabetes, well controlled, long-term use of insulin.Last A1c 5.6 05/2020. Follows with Endocrinology/Diabetes education. Last seen on 01/04/21. - Continue Lantus while here, Tresiba as outpt - ISS - Goal blood sugar 100 - 180. Hydrocortisone BID for suspected adrenal insufficiency. --> Note endocrinology plans to repeat testing outpatient to confirm diagnosis BSGs acceptable, monitor may bring dexcom to see if we could use that to avoid frequent finger sticks. (3) Seizure: Plan: Stable. No recent seizures in past 1+ year Follows with neurology, EDUARD 10/30/20 - mixed tremor, dyskinesia, seizure history, parkinsonism. EEG 05/2018 generalized spike and slow wave abnormality consistent with underlying generalized seizure disorder. MRI brain 10/2017 unremarkable. Prior failed VNS placement, device explanted. Presently on topiramate, Trileptal and Keppra. - Continue topiramate, trileptal, Keppra - Continue Ropinirole - Continue Benztropine for EPS (4) Parkinsonism: Plan: - Secondary to psych meds, continue benztropine (5) Osteoporosis: Plan: Endocrinology note 12/2020 notes patient on Forteo daily. Started early 2020, plan to continue for 2y. - Continue Forteo (6) Left foot pain: Plan: Gradually improving left foot/leg pain. Chronic. Suspect related to deformity and contracture of foot + bedbound; L foot more medially rotated and also having more plantar deviation and suspect this is due to her worsening ability to ambulate and more sedentary lifestyle. XR Foot 03/29/21: pes cavus deformity and hammertoe deformities with diffuse joint space narrowing Orthotics consult: may need custom shoes, f/u outpatient. No boot available that would help w/ stretching while inpatient. LLE DVT US 04/09/21 negative for DVT - Tylenol 500 mg BID PRN + 1000mg HS (Max 2G/day given cirrhosis) - Voltaren gel & lidocaine patch ordered, she does not feel they are helping. (note adhesive allergy. If rash develops, discontinue lido patch) - Continue heat and alternate with ice for pain, gentle stretching no issues reported today (7) Chronic anemia: Plan: Chronic. Improved/resolved on most recent labs. Suspect chronic hypoproliferative + iatrogenic in s/o prolonged hospitalization. Per chart review, chronic anemia reportedly due to myelodysplastic syndrome (which makes sense given macrocytosis & normal iron studies) & follows w/ hematology (no recent note viewable per my chart review) Baseline Hgb 9-11 2020. Normal iron/ferritin 12/2020. No bleeding. Minimize labs. (8) Thrombocytopenia: Plan: Likely due to portal HTN in s/o cirrhosis. Baseline 80-90s since fall 2020. Previously 150s early 2020 w/ some prior period s of decline into ~80s Monitor intermittently while inpatient Maintain pharmacologic DVT ppx with Lovenox as Plt >50k, although likely autoanticoagulated given liver disease, INR 1.2 (9) Depression: Plan: Continue home escitalopram 20mg (10) Migraine: Plan: Continue home nurtec PRN migraine (11) Left lateral abdominal pain: Plan: Resolved 04/13/21 Left sided abdominal pain. No fevers or stool change to suggest diverticulitis. No association w/ eating, not characteristic of heartburn or dyspepsia. No ascites on US ascites study 04/12/21 so no concern for SBP. Highest suspicion is that this was positional related to prolonged time in bed --> no issues 04/14 Plan: DVT ppx: Lovenox ppx 40mg q24h + IPCs per patient request Code: Full Dispo: Awaiting SNF placement as unable to care for her at home. Accepted - awaiting bed at [place]. Appreciate CM Admission and Anticipated Discharge Date Admission Date: January 31, 2021 Subjective patient evaluated this morning continues to use bedpan and noted fatigue/weakness. Discussed for safety would continue until feeling better. +BM this morning per patient, ammonia elevated and will increase lactulose to increase BMs/decrease ammonia level she would like to talk with CM about referrals to review so that she can look into proximity. Will alert CM. Eating/drinking no issue. No fever, chills, chest pain, shortness of breath, increased abdominal pain, nausea or vomiting at this time. Review of Systems Review of Systems: All systems reviewed & are unremarkable except as noted in HPI & below Physical Exam Physical Exam: General Appearance: Frail; in NAD who is A&O x 3, chronic choreiform movements/TD/tongue rolling/lip smacking from antipsychotic medications Head atraumatic, normocephalic, hearing intact trachea midline without deviation, no JVD Resp: CTAB, no distress, on room air CV: RRR, no edema GI: +BS, soft, non-tender Ext: no swelling/erythema, medially rotated and downward placement of ankle/foot bilaterally Psych: AOx3, cooperative Neuro: speech clear, movements suggestive of TD from antipsychotic medications (not new finding) Neurologic: Motor/Sensory: + asterixis Results & Data Results & Data ([facility]) Vital Signs (Past 12 Hours) Vital Signs Temp Pulse Resp BP Pulse Ox 04/14/21 22:47 36.7 C 68 18 124/69 94 Laboratory Results 04/15/21 04/15/21 04/15/21 Range/Units 08:23 08:19 08:19 WBC 4.73 L (4.8-10.8) K/uL RBC 3.10 L (4.2-5.4) M/uL Hgb 11.2 L (12.0-16.0) g/dL Hct 32.2 L (37-47) % MCV 103.9 H (80-100) fL MCH 36.1 H (25-34) pg MCHC 34.8 (32-36) g/dL RDW Std Deviation 50.2 H (36.4-46.3) fL RDW Coeff of Irina 13.5 (11.5-14.5) % Plt Count 90 L (130-400) K/uL MPV 9.7 (7.4-10.4) fL Sodium 141 (136-145) mmol/L Potassium 4.3 (3.5-5.1) mmol/L Chloride 116 H (98-107) mmol/L Carbon Dioxide 21 (21-32) mmol/L Anion Gap 4 (3-11) BUN 19 (6-23) mg/dl Creatinine 0.45 L (0.6-1.2) mg/dl Est Cr Clr Drug Dosing 146.5 ml/min Est GFR ( Amer) 130.7 ml/min Est GFR (Non-Af Amer) 112.8 ml/min BUN/Creatinine Ratio 42.2 H (10-20) Glucose 72 (70-99) mg/dl POC Glucose (70-99) mg/dl Calcium 8.0 L (8.5-10.1) mg/dl Ammonia 120.0 H (18-72) umol/L 04/15/21 04/14/21 04/14/21 Range/Units 08:08 20:38 17:12 WBC (4.8-10.8) K/uL RBC (4.2-5.4) M/uL Hgb (12.0-16.0) g/dL Hct (37-47) % MCV (80-100) fL MCH (25-34) pg MCHC (32-36) g/dL RDW Std Deviation (36.4-46.3) fL RDW Coeff of Irina (11.5-14.5) % Plt Count (130-400) K/uL MPV (7.4-10.4) fL Sodium (136-145) mmol/L Potassium (3.5-5.1) mmol/L Chloride (98-107) mmol/L Carbon Dioxide (21-32) mmol/L Anion Gap (3-11) BUN (6-23) mg/dl Creatinine (0.6-1.2) mg/dl Est Cr Clr Drug Dosing ml/min Est GFR ( Amer) ml/min Est GFR (Non-Af Amer) ml/min BUN/Creatinine Ratio (10-20) Glucose (70-99) mg/dl POC Glucose 76 117 H 122 H (70-99) mg/dl Calcium (8.5-10.1) mg/dl Ammonia (18-72) umol/L 04/14/21 Range/Units 12:17 WBC (4.8-10.8) K/uL RBC (4.2-5.4) M/uL Hgb (12.0-16.0) g/dL Hct (37-47) % MCV (80-100) fL MCH (25-34) pg MCHC (32-36) g/dL RDW Std Deviation (36.4-46.3) fL RDW Coeff of Irina (11.5-14.5) % Plt Count (130-400) K/uL MPV (7.4-10.4) fL Sodium (136-145) mmol/L Potassium (3.5-5.1) mmol/L Chloride (98-107) mmol/L Carbon Dioxide (21-32) mmol/L Anion Gap (3-11) BUN (6-23) mg/dl Creatinine (0.6-1.2) mg/dl Est Cr Clr Drug Dosing ml/min Est GFR ( Amer) ml/min Est GFR (Non-Af Amer) ml/min BUN/Creatinine Ratio (10-20) Glucose (70-99) mg/dl POC Glucose 120 H (70-99) mg/dl Calcium (8.5-10.1) mg/dl Ammonia (18-72) umol/L PG Care Time/CCT Total # of Minutes Spent Total Time Spent with Patient: Total time spent is greater than 50% in coordination of care (as documented) at patient's floor/unit and/or counseling patient: Coding Level of Care Code 29795 Subseq Hosp Care Lvl 2 Diagnoses Cirrhosis K74.60 Diabetes mellitus E11.9 Seizure R56.9 Parkinsonism G20 Osteoporosis M81.0 Left foot pain M79.672 Chronic anemia D64.9 Thrombocytopenia D69.6 Depression F32.9 Migraine G43.909 Left lateral abdominal pain R10.9
[2021-04-15 08:34] LABS: Hematocrit (blood only) 32.2 % (37-47); Hemoglobin 11.2 g/dL (12.0-16.0); Mean Corpuscular Hemoglobin 36.1 pg (25-34); Mean Corpuscular Hgb Conc 34.8 g/dL (32-36); Mean Corpuscular Volume 103.9 fL (80-100); Mean Platelet Volume 9.7 fL (7.4-10.4); Platelet Count 90 K/uL (130-400); RDW Coefficient of Variation 13.5 % (11.5-14.5); RDW Standard Deviation 50.2 fL (36.4-46.3); White Blood Count 4.73 K/uL (4.8-10.8)
[2021-04-15 08:59] LABS: BUN Creatinine Ratio 42.2 (10-20); Creatinine Clr Calc Pharmacy 146.5 ml/min; Est GFR (African American) 130.7 ml/min; Est GFR (Non-African American) 112.8 ml/min; Potassium 4.3 mmol/L (3.5-5.1)
[2021-04-15] MEDS: PRAVASTATIN SOD 20 MG TAB PO SCH (10:07)
[2021-04-15] MEDS: OXcarbazepine 150 MG TABLET PO SCH ×2 (10:07→21:36)
[2021-04-15] MEDS: rOPINIRole HCL 0.25 MG TABLET PO SCH ×2 (10:07→21:37)
[2021-04-15] MEDS: rifAXIMin 550 MG TABLET PO SCH ×2 (10:07→21:37)
[2021-04-15] MEDS: TOPIRAMATE 100 MG TAB PO SCH ×2 (10:07→21:36)
[2021-04-15] MEDS: FEXOFENADINE 60 MG TAB PO SCH (10:08)
[2021-04-15] MEDS: ESCITALOPRAM OXALATE 20 MG TAB PO SCH (10:08)
[2021-04-15] MEDS: MAGNESIUM OXIDE 400 MG TAB PO SCH ×2 (10:08→21:36)
[2021-04-15] MEDS: FUROSEMIDE 20 MG TAB PO SCH (10:08)
[2021-04-15] MEDS: BENZTROPINE MESYLATE 1 MG TAB PO SCH ×3 (10:08→21:37)
[2021-04-15] MEDS: levETIRAcetam 500 MG TAB PO SCH ×2 (10:08→21:37)
[2021-04-15] MEDS: LIDOCAINE 5% 1 PATCH TD SCH ×2 (10:09→13:15)
[2021-04-15] MEDS: ENOXAPARIN INJ 40 MG/0.4 ML SYR SQ SCH (10:09)
[2021-04-15] MEDS: DICLOFENAC SOD 1% GEL 100 GM TUBE EXT SCH ×4 (10:09→21:37)
[2021-04-15] MEDS: LACTULOSE SYRUP 20 GM/30 ML UDC PO SCH (10:10)
[2021-04-15] MEDS: INSULIN ASPART PER UNIT SC SCH ×4 (10:14→20:56)
[2021-04-15] MEDS: INSULIN GLARGINE SOLOSTAR 100 UNITS/ML 3 ML PEN SC SCH (10:14)
[2021-04-15] MEDS: LACTULOSE SYRUP 30 GM/45 ML UDP PO SCH ×2 (15:31→17:51)
[2021-04-15] MEDS: HYDROCORTISONE 10 MG TAB PO SCH (15:32)
[2021-04-15] MEDS: ACETAMINOPHEN 500 MG TAB PO SCH (21:36)
[2021-04-15] MEDS: FAMOTIDINE 20 MG TAB PO SCH (21:36)
[2021-04-15] MEDS: [UNRECOGNIZED DRUG - REMARK] SQ SCH (21:38)
[2021-04-15] MEDS: MELATONIN 3 MG TAB PO SCH (21:38)
[2021-04-16] MEDS: LEVOTHYROXINE SODIUM 50 MCG TABLET PO SCH (05:05)
[2021-04-16] MEDS: levETIRAcetam 500 MG TAB PO SCH ×2 (09:02→21:02)
[2021-04-16] MEDS: BENZTROPINE MESYLATE 1 MG TAB PO SCH ×3 (09:03→21:01)
[2021-04-16] MEDS: PRAVASTATIN SOD 20 MG TAB PO SCH (09:03)
[2021-04-16] MEDS: MAGNESIUM OXIDE 400 MG TAB PO SCH ×2 (09:03→21:02)
[2021-04-16] MEDS: rOPINIRole HCL 0.25 MG TABLET PO SCH ×2 (09:03→21:02)
[2021-04-16] MEDS: FUROSEMIDE 20 MG TAB PO SCH (09:03)
[2021-04-16] MEDS: HYDROCORTISONE 10 MG TAB PO SCH ×2 (09:03→15:31)
[2021-04-16] MEDS: ESCITALOPRAM OXALATE 20 MG TAB PO SCH (09:03)
[2021-04-16] MEDS: FEXOFENADINE 60 MG TAB PO SCH (09:03)
[2021-04-16] MEDS: rifAXIMin 550 MG TABLET PO SCH ×2 (09:04→21:03)
[2021-04-16] MEDS: OXcarbazepine 150 MG TABLET PO SCH ×2 (09:04→21:03)
[2021-04-16] MEDS: TOPIRAMATE 100 MG TAB PO SCH ×2 (09:04→21:01)
[2021-04-16] MEDS: LIDOCAINE 5% 1 PATCH TD SCH (09:07)
[2021-04-16] MEDS: DICLOFENAC SOD 1% GEL 100 GM TUBE EXT SCH ×4 (09:07→21:05)
[2021-04-16] MEDS: ENOXAPARIN INJ 40 MG/0.4 ML SYR SQ SCH (09:07)
[2021-04-16] MEDS: INSULIN ASPART PER UNIT SC SCH ×4 (09:09→20:59)
[2021-04-16] MEDS: INSULIN GLARGINE SOLOSTAR 100 UNITS/ML 3 ML PEN SC SCH (09:09)
[2021-04-16] MEDS: LACTULOSE SYRUP 30 GM/45 ML UDP PO SCH ×3 (09:10→18:23)
--- NOTE | 2021-04-16 11:14 | Hospitalist Progress Note ---
Date of Service April 16, 2021 Assessment & Plan (1) Cirrhosis: Plan: Clinically stable. Awaiting for placement at [place] Initially hospitalized w/ hepatic encephalopathy 2/2 UTI. Has been resolved, at baseline mentation, for weeks Cirrhosis 2/2 STEVE (c/b portal hypertension) Followed by Hepatology at [facility] + Dr Paris [facility] Not listed for transplant Decompensated due to recent HE MELD-Na: 11 as of labs 04/10/21 History of HE No varices, variceal hemorrhage (last EGD 06/2020 - mild PHG) No ascites, SBP; No HPS or PPHTN; No HRS; No HCC (last RUQ US 09/2020 & AFP 02/2019 - likely more recently done at [facility]) Continue Lactulose TID, Rifaximin 550mg BID --> Titrate lactulose as needed to achieve ~3BM/d. +BM this morning. Only having 1-2BM/day. Ammonia level 120 on 04/15 and continue increased lactulose to 30mg TID and monitor - Ammonia level in AM Continue pepcid 20mg po qhs Continue furosemide 20mg daily. Not on aldactone. - Periodically assess MELD labs (CMP + INR) - Max 2G APAP per day - Outpatient follow up: Annual RUQ US + AFP for HCC screening (next due 09/2021). EGD q3y for variceal screening (next due 06/2023) Titration up in lactulose as above, and continue to monitor closely as she is aware possible placement this week and given prior hospitalizations/fall/care plan would like to prevent falls Awaiting placement (2) Diabetes mellitus: Plan: Type 2 diabetes, well controlled, long-term use of insulin.Last A1c 5.6 05/2020. Follows with Endocrinology/Diabetes education. Last seen on 01/04/21. - Continue Lantus while here, Tresiba as outpt - ISS - Goal blood sugar 100 - 180. Hydrocortisone BID for suspected adrenal insufficiency. --> Note endocrinology plans to repeat testing outpatient to confirm diagnosis BSGs acceptable, monitor may bring dexcom to see if we could use that to avoid frequent finger sticks. (3) Seizure: Plan: Stable. No recent seizures in past 1+ year Follows with neurology, EDUARD 10/30/20 - mixed tremor, dyskinesia, seizure history, parkinsonism. EEG 05/2018 generalized spike and slow wave abnormality consistent with underlying generalized seizure disorder. MRI brain 10/2017 unremarkable. Prior failed VNS placement, device explanted. Presently on topiramate, Trileptal and Keppra. - Continue topiramate, trileptal, Keppra - Continue Ropinirole - Continue Benztropine for EPS (4) Parkinsonism: Plan: - Secondary to psych meds, continue benztropine (5) Osteoporosis: Plan: Endocrinology note 12/2020 notes patient on Forteo daily. Started early 2020, plan to continue for 2y. - Continue Forteo (6) Left foot pain: Plan: Gradually improving left foot/leg pain. Chronic. Suspect related to deformity and contracture of foot + bedbound; L foot more medially rotated and also having more plantar deviation and suspect this is due to her worsening ability to ambulate and more sedentary lifestyle. XR Foot 03/29/21: pes cavus deformity and hammertoe deformities with diffuse joint space narrowing Orthotics consult: may need custom shoes, f/u outpatient. No boot available that would help w/ stretching while inpatient. LLE DVT US 04/09/21 negative for DVT - Tylenol 500 mg BID PRN + 1000mg HS (Max 2G/day given cirrhosis) - Voltaren gel & lidocaine patch ordered, she does not feel they are helping. (note adhesive allergy. If rash develops, discontinue lido patch) - Continue heat and alternate with ice for pain, gentle stretching no issues reported today (7) Chronic anemia: Plan: Chronic. Improved/resolved on most recent labs. Suspect chronic hypoproliferative + iatrogenic in s/o prolonged hospitalization. Per chart review, chronic anemia reportedly due to myelodysplastic syndrome (which makes sense given macrocytosis & normal iron studies) & follows w/ hematology (no recent note viewable per my chart review) Baseline Hgb 9-11 2020. Normal iron/ferritin 12/2020. No bleeding. Minimize labs. (8) Thrombocytopenia: Plan: Likely due to portal HTN in s/o cirrhosis. Baseline 80-90s since fall 2020. Previously 150s early 2020 w/ some prior periods of decline into ~80s Monitor intermittently while inpatient Maintain pharmacologic DVT ppx with Lovenox as Plt >50k, although likely autoanticoagulated given liver disease, INR 1.2 (9) Depression: Plan: Continue home escitalopram 20mg (10) Migraine: Plan: Continue home nurtec PRN migraine (11) Left lateral abdominal pain: Plan: Resolved 04/13/21 Left sided abdominal pain. No fevers or stool change to suggest diverticulitis. No association w/ eating, not characteristic of heartburn or dyspepsia. No ascites on US ascites study 04/12/21 so no concern for SBP. Highest suspicion is that this was positional related to prolonged time in bed --> no reported issues today Plan: DVT ppx: Lovenox ppx 40mg q24h + IPCs per patient request Code: Full Dispo: Awaiting SNF placement as unable to care for her at home. Accept ed - awaiting bed at [facility]. Appreciate CM Admission and Anticipated Discharge Date Admission Date: January 31, 2021 Subjective No acute events overnight. Does appear more fatigued compared to previous assessments by me. She is moving her bowels and lactulose was increased yesterday and will monitor. Suspect she may still have an element of hyperammonemia factoring into her presentation. She is tolerating a diet without issue. Verbalizes no complaints Review of Systems Review of Systems: All systems reviewed & are unremarkable except as noted in Subjective Physical Exam Physical Exam: PHYSICAL EXAM General Appearance: Frail; in NAD who is A&O x 3 but fatigued appearing HEENT: Head is normocephalic/atraumatic; Hearing grossly intact; anicteric sclera Neck: Supple; Trachea midline; Neg JVD Abdomen: Soft, non-tender, non-distended; Positive BS x 4 quadrants Extremities: No swelling or erythema of ankles; does have medially rotated and downward placement of ankle/foot bilaterally Neurological: Speech clear; + mild choreiform movements of head during this visit Psychiatric: appropriate mood/affect Skin: Normal Color; Warm/Dry Results & Data Results & Data ([facility]) Vital Signs (Past 12 Hours) Vital Signs Temp Pulse Resp BP Pulse Ox 04/16/21 08:46 36.7 C 62 16 140/57 L 98 PG Care Time/CCT Total # of Minutes Spent Total Time Spent with Patient: Total time spent is greater than 50% in coordination of care (as documented) at patient's floor/unit and/or counseling patient: Coding Level of Care Code 18147 Subseq Hosp Care Lvl 2 Diagnoses Cirrhosis K74.60 Diabetes mellitus E11.9 Seizure R56.9 Parkinsonism G20 Osteoporosis M81.0 Left foot pain M79.672 Chronic anemia D64.9 Thrombocytopenia D69.6 Depression F32.9 Migraine G43.909 Left lateral abdominal pain R10.9
[2021-04-16] MEDS: MELATONIN 3 MG TAB PO SCH (20:58)
[2021-04-16] MEDS: [UNRECOGNIZED DRUG - REMARK] SQ SCH (20:59)
[2021-04-16] MEDS: FAMOTIDINE 20 MG TAB PO SCH (21:03)
[2021-04-16] MEDS: ACETAMINOPHEN 500 MG TAB PO SCH (21:04)
[2021-04-17] MEDS: LEVOTHYROXINE SODIUM 50 MCG TABLET PO SCH (05:36)
[2021-04-17 07:05] LABS: BUN Creatinine Ratio 38.2 (10-20); Calcium 7.9 mg/dl (8.5-10.1); Creatinine Clr Calc Pharmacy 119.8 ml/min; Est GFR (African American) 122.4 ml/min; Est GFR (Non-African American) 105.6 ml/min; Potassium 4.5 mmol/L (3.5-5.1)
[2021-04-17] MEDS: ESCITALOPRAM OXALATE 20 MG TAB PO SCH (08:43)
[2021-04-17] MEDS: ENOXAPARIN INJ 40 MG/0.4 ML SYR SQ SCH (08:43)
[2021-04-17] MEDS: BENZTROPINE MESYLATE 1 MG TAB PO SCH ×3 (08:43→21:03)
[2021-04-17] MEDS: DICLOFENAC SOD 1% GEL 100 GM TUBE EXT SCH ×4 (08:43→21:04)
[2021-04-17] MEDS: FEXOFENADINE 60 MG TAB PO SCH (08:44)
[2021-04-17] MEDS: FUROSEMIDE 20 MG TAB PO SCH (08:44)
[2021-04-17] MEDS: HYDROCORTISONE 10 MG TAB PO SCH ×2 (08:45→15:35)
[2021-04-17] MEDS: levETIRAcetam 500 MG TAB PO SCH ×2 (08:45→21:05)
[2021-04-17] MEDS: LIDOCAINE 5% 1 PATCH TD SCH (08:46)
[2021-04-17] MEDS: LACTULOSE SYRUP 30 GM/45 ML UDP PO SCH ×3 (08:46→17:41)
[2021-04-17] MEDS: MAGNESIUM OXIDE 400 MG TAB PO SCH ×2 (08:47→21:06)
[2021-04-17] MEDS: OXcarbazepine 150 MG TABLET PO SCH ×2 (08:49→21:09)
[2021-04-17] MEDS: PRAVASTATIN SOD 20 MG TAB PO SCH (08:50)
[2021-04-17] MEDS: TOPIRAMATE 100 MG TAB PO SCH ×2 (08:50→21:11)
[2021-04-17] MEDS: rOPINIRole HCL 0.25 MG TABLET PO SCH ×2 (08:50→21:11)
[2021-04-17] MEDS: rifAXIMin 550 MG TABLET PO SCH ×2 (08:50→21:10)
[2021-04-17] MEDS: INSULIN GLARGINE SOLOSTAR 100 UNITS/ML 3 ML PEN SC SCH (08:52)
[2021-04-17] MEDS: INSULIN ASPART PER UNIT SC SCH ×4 (08:57→21:05)
--- NOTE | 2021-04-17 12:38 | Hospitalist Progress Note ---
Date of Service April 17, 2021 Assessment & Plan (1) Cirrhosis: Plan: Clinically stable. Awaiting for placement at [place] Initially hospitalized w/ hepatic encephalopathy 2/2 UTI. Has been resolved, at baseline mentation, for weeks Cirrhosis 2/2 STEVE (c/b portal hypertension) Followed by Hepatology at [facility] + Dr Paris CHAPIN GI Not listed for transplant Decompensated due to recent HE MELD-Na: 11 as of labs 04/10/21 History of HE No varices, variceal hemorrhage (last EGD 06/2020 - mild PHG) No ascites, SBP; No HPS or PPHTN; No HRS; No HCC (last RUQ US 09/2020 & AFP 02/2019 - likely more recently done at [facility]) Continue Lactulose TID, Rifaximin 550mg BID --> Titrate lactulose as needed to achieve ~3BM/d. +BMs this morning. Ammonia level 120 on 04/15 and continue increased lactulose to 30mg TID but down to 109 which is relatively good for this patient. She can easily recall who I am and what the plan is. Continue pepcid 20mg po qhs Continue furosemide 20mg daily. Not on aldactone. - Periodically assess MELD labs (CMP + INR) - Max 2G APAP per day - Outpatient follow up: Annual RUQ US + AFP for HCC screening (next due 09/2021). EGD q3y for variceal screening (next due 06/2023) Titration up in lactulose as above, and continue to monitor closely as she is aware possible placement this week and given prior hospitalizations/fall/care plan would like to prevent falls Awaiting placement (2) Diabetes mellitus: Plan: Type 2 diabetes, well controlled, long-term use of insulin.Last A1c 5.6 05/2020. Follows with Endocrinology/Diabetes education. Last seen on 01/04/21. - Continue Lantus while here, Tresiba as outpt - ISS - Goal blood sugar 100 - 180. Hydrocortisone BID for suspected adrenal insufficiency. --> Note endocrinology plans to repeat testing outpatient to confirm diagnosis BSGs acceptable, monitor may bring dexcom to see if we could use that to avoid frequent finger sticks. (3) Seizure: Plan: Stable. No recent seizures in past 1+ year Follows with neurology, EDUARD 10/30/20 - mixed tremor, dyskinesia, seizure history, parkinsonism. EEG 05/2018 generalized spike and slow wave abnormality consistent with underlying generalized seizure disorder. MRI brain 10/2017 unremarkable. Prior failed VNS placement, device explanted. Presently on topiramate, Trileptal and Keppra. - Continue topiramate, trileptal, Keppra - Continue Ropinirole - Continue Benztropine for EPS (4) Parkinsonism: Plan: - Secondary to psych meds, continue benztropine (5) Osteoporosis: Plan: Endocrinology note 12/2020 notes patient on Forteo daily. Started early 2020, plan to continue for 2y. - Continue Forteo (6) Left foot pain: Plan: Gradually improving left foot/leg pain. Chronic. Suspect related to deformity and contracture of foot + bedbound; L foot more medially rotated and also having more plantar deviation and suspect this is due to her worsening ability to ambulate and more sedentary lifestyle. XR Foot 03/29/21: pes cavus deformity and hammertoe deformities with diffuse joint space narrowing Orthotics consult: may need custom shoes, f/u outpatient. No boot available that would help w/ stretching while inpatient. LLE DVT US 04/09/21 negative for DVT - Tylenol 500 mg BID PRN + 1000mg HS (Max 2G/day given cirrhosis) - Voltaren gel & lidocaine patch ordered, she does not feel they are helping. (note adhesive allergy. If rash develops, discontinue lido patch) - Continue heat and alternate with ice for pain, gentle stretching no issues reported today (7) Chronic anemia: Plan: Chronic. Improved/resolved on most recent labs. Suspect chronic hypoproliferat edith + iatrogenic in s/o prolonged hospitalization. Per chart review, chronic anemia reportedly due to myelodysplastic syndrome (which makes sense given macrocytosis & normal iron studies) & follows w/ hematology (no recent note viewable per my chart review) Baseline Hgb 9-11 2020. Normal iron/ferritin 12/2020. No bleeding. Minimize labs. (8) Thrombocytopenia: Plan: Likely due to portal HTN in s/o cirrhosis. Baseline 80-90s since fall 2020. Previously 150s early 2020 w/ some prior periods of decline into ~80s Monitor intermittently while inpatient Maintain pharmacologic DVT ppx with Lovenox as Plt >50k, although likely autoanticoagulated given liver disease, INR 1.2 (9) Depression: Plan: Continue home escitalopram 20mg (10) Migraine: Plan: Continue home nurtec PRN migraine (11) Left lateral abdominal pain: Plan: Resolved 04/13/21 Left sided abdominal pain. No fevers or stool change to suggest diverticulitis. No association w/ eating, not characteristic of heartburn or dyspepsia. No ascites on US ascites study 04/12/21 so no concern for SBP. Highest suspicion is that this was positional related to prolonged time in bed --> no reported issues today Plan: DVT ppx: Lovenox ppx 40mg q24h + IPCs per patient request Code: Full Dispo: Awaiting SNF placement as unable to care for her at home. Accepted - awaiting bed at [facility]. Appreciate CM Admission and Anticipated Discharge Date Admission Date: January 31, 2021 Subjective No acute events overnight. Ammonia levels continue to reduce. She is becoming more like her normal self. Seems less fatigued today. Having bowel movements and should be able to start reducing her back to home dosing of Lactulose. She is awaiting approval for [facility]. She verbalizes no complaints Review of Systems Review of Systems: All systems reviewed & are unremarkable except as noted in Subjective Physical Exam Physical Exam: PHYSICAL EXAM General Appearance: Frail; in NAD who is A&O x 3 less fatigued apearing HEENT: Head is normocephalic/atraumatic; Hearing grossly intact; anicteric sclera Neck: Supple; Trachea midline; Neg JVD Abdomen: Soft, non-tender, non-distended; Positive BS x 4 quadrants Extremities: No swelling or erythema of ankles; does have medially rotated and downward placement of ankle/foot bilaterally Neurological: Speech clear; + mild choreiform movements of head during this visit Psychiatric: appropriate mood/affect Skin: Normal Color; Warm/Dry Results & Data Results & Data ([facility]) Vital Signs (Past 12 Hours) Vital Signs Temp Pulse Resp BP Pulse Ox 04/17/21 07:27 36.7 C 61 16 131/81 98 PG Care Time/CCT Total # of Minutes Spent Total Time Spent with Patient: Total time spent is greater than 50% in coordination of care (as documented) at patient's floor/unit and/or counseling patient: Coding Level of Care Code 50484 Subseq Hosp Care Lvl 1 Diagnoses Cirrhosis K74.60 Diabetes mellitus E11.9 Seizure R56.9 Parkinsonism G20 Osteoporosis M81.0 Left foot pain M79.672 Chronic anemia D64.9 Thrombocytopenia D69.6 Depression F32.9 Migraine G43.909 Left lateral abdominal pain R10.9
[2021-04-17] MEDS: ACETAMINOPHEN 500 MG TAB PO SCH (21:02)
[2021-04-17] MEDS: FAMOTIDINE 20 MG TAB PO SCH (21:04)
[2021-04-17] MEDS: [UNRECOGNIZED DRUG - REMARK] SQ SCH (21:07)
[2021-04-17] MEDS: MELATONIN 3 MG TAB PO SCH (21:07)
[2021-04-18] MEDS: ACETAMINOPHEN 500 MG TAB PO PRN (05:31)
[2021-04-18] MEDS: LEVOTHYROXINE SODIUM 50 MCG TABLET PO SCH (05:32)
[2021-04-18] MEDS: ENOXAPARIN INJ 40 MG/0.4 ML SYR SQ SCH (08:43)
[2021-04-18] MEDS: LIDOCAINE 5% 1 PATCH TD SCH (08:45)
[2021-04-18] MEDS: INSULIN ASPART PER UNIT SC SCH ×4 (08:48→20:29)
[2021-04-18] MEDS: OXcarbazepine 150 MG TABLET PO SCH ×2 (08:51→20:20)
[2021-04-18] MEDS: TOPIRAMATE 100 MG TAB PO SCH ×2 (08:51→20:22)
[2021-04-18] MEDS: rOPINIRole HCL 0.25 MG TABLET PO SCH ×2 (08:51→20:21)
[2021-04-18] MEDS: levETIRAcetam 500 MG TAB PO SCH ×2 (08:51→20:18)
[2021-04-18] MEDS: FUROSEMIDE 20 MG TAB PO SCH (08:51)
[2021-04-18] MEDS: MAGNESIUM OXIDE 400 MG TAB PO SCH ×2 (08:51→20:19)
[2021-04-18] MEDS: PRAVASTATIN SOD 20 MG TAB PO SCH (08:51)
[2021-04-18] MEDS: ESCITALOPRAM OXALATE 20 MG TAB PO SCH (08:51)
[2021-04-18] MEDS: rifAXIMin 550 MG TABLET PO SCH ×2 (08:51→20:20)
[2021-04-18] MEDS: HYDROCORTISONE 10 MG TAB PO SCH ×2 (08:51→14:42)
[2021-04-18] MEDS: DICLOFENAC SOD 1% GEL 100 GM TUBE EXT SCH ×4 (08:52→20:17)
[2021-04-18] MEDS: LACTULOSE SYRUP 20 GM/30 ML UDC PO SCH ×3 (08:52→17:40)
[2021-04-18] MEDS: FEXOFENADINE 60 MG TAB PO SCH (08:52)
[2021-04-18] MEDS: BENZTROPINE MESYLATE 1 MG TAB PO SCH ×3 (08:52→20:16)
[2021-04-18] MEDS: INSULIN GLARGINE SOLOSTAR 100 UNITS/ML 3 ML PEN SC SCH (09:43)
--- NOTE | 2021-04-18 12:14 | Hospitalist Progress Note ---
Date of Service April 18, 2021 Assessment & Plan (1) Cirrhosis: Plan: Clinically stable. Awaiting for placement at [place] Initially hospitalized w/ hepatic encephalopathy 2/2 UTI. Has been resolved, at baseline mentation, for weeks Cirrhosis 2/2 STEVE (c/b portal hypertension) Followed by Hepatology at [facility] + Dr Paris CHAPIN GI Not listed for transplant Decompensated due to recent HE MELD-Na: 11 as of labs 04/10/21 History of HE No varices, variceal hemorrhage (last EGD 06/2020 - mild PHG) No ascites, SBP; No HPS or PPHTN; No HRS; No HCC (last RUQ US 09/2020 & AFP 02/2019 - likely more recently done at [facility]) Continue Lactulose TID, Rifaximin 550mg BID --> Titrate lactulose as needed to achieve ~3BM/d. +BMs this morning. Ammonia level 120 on 04/15 and increased lactulose to 30mg TID but down to 109 which is relatively good for this patient. She can easily recall who I am and what the plan is and continues to have BMs - will change back to normal home dosing Continue pepcid 20mg po qhs Continue furosemide 20mg daily. Not on aldactone. - Periodically assess MELD labs (CMP + INR) - Max 2G APAP per day - Outpatient follow up: Annual RUQ US + AFP for HCC screening (next due 09/2021). EGD q3y for variceal screening (next due 06/2023) Continue to monitor closely as she is aware possible placement this week and given prior hospitalizations/fall/care plan would like to prevent falls Awaiting placement (2) Diabetes mellitus: Plan: Type 2 diabetes, well controlled, long-term use of insulin.Last A1c 5.6 05/2020. Follows with Endocrinology/Diabetes education. Last seen on 01/04/21. - Continue Lantus while here, Tresiba as outpt - ISS - Goal blood sugar 100 - 180. Hydrocortisone BID for suspected adrenal insufficiency. --> Note endocrinology plans to repeat testing outpatient to confirm diagnosis BSGs acceptable, monitor may bring dexcom to see if we could use that to avoid frequent finger sticks. (3) Seizure: Plan: Stable. No recent seizures in past 1+ year Follows with neurology, EDUARD 10/30/20 - mixed tremor, dyskinesia, seizure history, parkinsonism. EEG 05/2018 generalized spike and slow wave abnormality consistent with underlying generalized seizure disorder. MRI brain 10/2017 unremarkable. Prior failed VNS placement, device explanted. Presently on topiramate, Trileptal and Keppra. - Continue topiramate, trileptal, Keppra - Continue Ropinirole - Continue Benztropine for EPS (4) Parkinsonism: Plan: - Secondary to psych meds, continue benztropine (5) Osteoporosis: Plan: Endocrinology note 12/2020 notes patient on Forteo daily. Started early 2020, plan to continue for 2y. - Continue Forteo (6) Left foot pain: Plan: Gradually improving left foot/leg pain. Chronic. Suspect related to deformity and contracture of foot + bedbound; L foot more medially rotated and also having more plantar deviation and suspect this is due to her worsening ability to ambulate and more sedentary lifestyle. XR Foot 03/29/21: pes cavus deformity and hammertoe deformities with diffuse joint space narrowing Orthotics consult: may need custom shoes, f/u outpatient. No boot available that would help w/ stretching while inpatient. LLE DVT US 04/09/21 negative for DVT - Tylenol 500 mg BID PRN + 1000mg HS (Max 2G/day given cirrhosis) - Voltaren gel & lidocaine patch ordered, she does not feel they are helping. (note adhesive allergy. If rash develops, discontinue lido patch) - Continue heat and alternate with ice for pain, gentle stretching no issues reported today (7) Chronic anemia: Plan: Chronic. Improved/resolved on most recent labs. Suspect chronic hypoproliferative + iatrogenic in s/o prolonged hospitalization. Per chart review, chronic anemia reportedly due to myelodysplastic syndrome (which makes sense given macrocytosis & normal iron studies) & follows w/ hematology (no recent note viewable per my chart review) Baseline Hgb 9-2020. Normal iron/ferritin 12/2020. No bleeding. Minimize labs. (8) Thrombocytopenia: Plan: Likely due to portal HTN in s/o cirrhosis. Baseline 80-90s since fall 2020. Previously 150s early 2020 w/ some prior periods of decline into ~80s Monitor intermittently while inpatient Maintain pharmacologic DVT ppx with Lovenox as Plt >50k, although likely autoanticoagulated given liver disease, INR 1.2 (9) Depression: Plan: Continue home escitalopram 20mg (10) Migraine: Plan: Continue home nurtec PRN migraine (11) Left lateral abdominal pain: Plan: Resolved 04/13/21 Left sided abdominal pain. No fevers or stool change to suggest diverticulitis. No association w/ eating, not characteristic of heartburn or dyspepsia. No ascites on US ascites study 04/12/21 so no concern for SBP. Highest suspicion is that this was positional related to prolonged time in bed --> no reported issues today Plan: DVT ppx: Lovenox ppx 40mg q24h + IPCs per patient request Code: Full Dispo: Awaiting SNF placement as unable to care for her at home. Accepted - awaiting bed at [facility]. Appreciate CM Admission and Anticipated Discharge Date Admission Date: January 31, 2021 Subjective No acute events overnight. Continues to move bowels and mentation improved. Reduced down to baseline Lactulsoe Review of Systems Review of Systems: All systems reviewed & are unremarkable except as noted in Subjective Physical Exam Physical Exam: PHYSICAL EXAM General Appearance: Frail; in NAD who is A&O x 3 less fatigued apearing HEENT: Head is normocephalic/atraumatic; Hearing grossly intact; anicteric sclera Neck: Supple; Trachea midline; Neg JVD Abdomen: Soft, non-tender, non-distended; Positive BS x 4 quadrants Extremities: No swelling or erythema of ankles; does have medially rotated and downward placement of ankle/foot bilaterally Neurological: Speech clear; + mild choreiform movements of head during this visit Psychiatric: appropriate mood/affect Skin: Normal Color; Warm/Dry Results & Data Results & Data ([facility]) Vital Signs (Past 12 Hours) Vital Signs Temp Pulse Resp BP Pulse Ox 04/18/21 07:29 36.6 C 63 16 120/70 95 PG Care Time/CCT Total # of Minutes Spent Total Time Spent with Patient: Total time spent is greater than 50% in coordination of care (as documented) at patient's floor/unit and/or counseling patient: Coding Level of Care Code 33885 Subseq Hosp Care Lvl 1 Diagnoses Cirrhosis K74.60 Diabetes mellitus E11.9 Seizure R56.9 Parkinsonism G20 Osteoporosis M81.0 Left foot pain M79.672 Chronic anemia D64.9 Thrombocytopenia D69.6 Depression F32.9 Migraine G43.909 Left lateral abdominal pain R10.9
[2021-04-18] MEDS: ACETAMINOPHEN 500 MG TAB PO SCH (20:15)
[2021-04-18] MEDS: FAMOTIDINE 20 MG TAB PO SCH (20:18)
[2021-04-18] MEDS: MELATONIN 3 MG TAB PO SCH (20:30)
[2021-04-18] MEDS: [UNRECOGNIZED DRUG - REMARK] SQ SCH (20:30)
[2021-04-19] MEDS: PROMETHAZINE HCL 25 MG TAB PO PRN (05:19)
[2021-04-19] MEDS: LEVOTHYROXINE SODIUM 50 MCG TABLET PO SCH (05:19)
[2021-04-19] MEDS: INSULIN ASPART PER UNIT SC SCH ×4 (08:43→21:46)
[2021-04-19] MEDS: INSULIN GLARGINE SOLOSTAR 100 UNITS/ML 3 ML PEN SC SCH (08:43)
[2021-04-19] MEDS: ENOXAPARIN INJ 40 MG/0.4 ML SYR SQ SCH (08:44)
[2021-04-19] MEDS: LIDOCAINE 5% 1 PATCH TD SCH (08:46)
[2021-04-19] MEDS: HYDROCORTISONE 10 MG TAB PO SCH ×2 (08:47→15:58)
[2021-04-19] MEDS: PRAVASTATIN SOD 20 MG TAB PO SCH (08:47)
[2021-04-19] MEDS: rOPINIRole HCL 0.25 MG TABLET PO SCH ×2 (08:47→21:40)
[2021-04-19] MEDS: BENZTROPINE MESYLATE 1 MG TAB PO SCH ×3 (08:47→21:36)
[2021-04-19] MEDS: FUROSEMIDE 20 MG TAB PO SCH (08:47)
[2021-04-19] MEDS: rifAXIMin 550 MG TABLET PO SCH ×2 (08:47→21:40)
[2021-04-19] MEDS: OXcarbazepine 150 MG TABLET PO SCH ×2 (08:47→21:39)
[2021-04-19] MEDS: TOPIRAMATE 100 MG TAB PO SCH ×2 (08:47→21:41)
[2021-04-19] MEDS: MAGNESIUM OXIDE 400 MG TAB PO SCH ×2 (08:47→21:39)
[2021-04-19] MEDS: ESCITALOPRAM OXALATE 20 MG TAB PO SCH (08:47)
[2021-04-19] MEDS: FEXOFENADINE 60 MG TAB PO SCH (08:47)
[2021-04-19] MEDS: levETIRAcetam 500 MG TAB PO SCH ×2 (08:48→21:38)
[2021-04-19] MEDS: LACTULOSE SYRUP 20 GM/30 ML UDC PO SCH ×3 (08:48→17:46)
[2021-04-19] MEDS: DICLOFENAC SOD 1% GEL 100 GM TUBE EXT SCH ×4 (08:48→21:37)
[2021-04-19] MEDS ORDERED: Nursing to Pharmacy Communication SCH (11:45)
[2021-04-19] MEDS: ARTIFICIAL TEARS OP SCH ×3 (13:04→21:36)
--- NOTE | 2021-04-19 13:25 | Hospitalist Progress Note ---
Date of Service April 19, 2021 Assessment & Plan (1) Cirrhosis: Plan: Clinically stable. Awaiting for placement - Possibly to [place] tomorrow? Initially hospitalized w/ hepatic encephalopathy 2/2 UTI. Has been resolved, at baseline mentation, for weeks Cirrhosis 2/2 STEVE (c/b portal hypertension) Followed by Hepatology at [facility] + Dr Paris CHAPIN GI Not listed for transplant Decompensated due to recent HE MELD-Na: 11 as of labs 04/10/21 History of HE No varices, variceal hemorrhage (last EGD 06/2020 - mild PHG) No ascites, SBP; No HPS or PPHTN; No HRS; No HCC (last RUQ US 09/2020 & AFP 02/2019 - likely more recently done at [facility]) Continue Lactulose TID, Rifaximin 550mg BID --> Titrate lactulose as needed to achieve ~3BM/d. +BMs this morning. Ammonia level 120 on 04/15 and increased lactulose to 30mg TID but down to 109 which is relatively good for this patient. She is at baseline mentation - continue normal home dosing Continue pepcid 20mg po qhs Continue furosemide 20mg daily. Not on aldactone. - Periodically assess MELD labs (CMP + INR) - Max 2G APAP per day - Outpatient follow up: Annual RUQ US + AFP for HCC screening (next due 09/2021). EGD q3y for variceal screening (next due 06/2023) Continue to monitor closely as she is aware possible placement this week and given prior hospitalizations/fall/care plan would like to prevent falls Awaiting placement (2) Diabetes mellitus: Plan: Type 2 diabetes, well controlled, long-term use of insulin.Last A1c 5.6 05/2020. Follows with Endocrinology/Diabetes education. Last seen on 01/04/21. - Continue Lantus while here, Tresiba as outpt - ISS - Goal blood sugar 100 - 180. Hydrocortisone BID for suspected adrenal insufficiency. --> Note endocrinology plans to repeat testing outpatient to confirm diagnosis BSGs acceptable, monitor may bring dexcom to see if we could use that to avoid frequent finger sticks. (3) Seizure: Plan: Stable. No recent seizures in past 1+ year Follows with neurology, EDUARD 10/30/20 - mixed tremor, dyskinesia, seizure history, parkinsonism. EEG 05/2018 generalized spike and slow wave abnormality consistent with underlying generalized seizure disorder. MRI brain 10/2017 unremarkable. Prior failed VNS placement, device explanted. Presently on topiramate, Trileptal and Keppra. - Continue topiramate, trileptal, Keppra - Continue Ropinirole - Continue Benztropine for EPS (4) Parkinsonism: Plan: - Secondary to psych meds, continue benztropine (5) Osteoporosis: Plan: Endocrinology note 12/2020 notes patient on Forteo daily. Started early 2020, plan to continue for 2y. - Continue Forteo (6) Left foot pain: Plan: Gradually improving left foot/leg pain. Chronic. Suspect related to deformity and contracture of foot + bedbound; L foot more medially rotated and also having more plantar deviation and suspect this is due to her worsening ability to ambulate and more sedentary lifestyle. XR Foot 03/29/21: pes cavus deformity and hammertoe deformities with diffuse joint space narrowing Orthotics consult: may need custom shoes, f/u outpatient. No boot available that would help w/ stretching while inpatient. LLE DVT US 04/09/21 negative for DVT - Tylenol 500 mg BID PRN + 1000mg HS (Max 2G/day given cirrhosis) - Voltaren gel & lidocaine patch ordered, she does not feel they are helping. (note adhesive allergy. If rash develops, discontinue lido patch) - Continue heat and alternate with ice for pain, gentle stretching no issues reported today (7) Chronic anemia: Plan: Chronic. Improved/resolved on most recent labs. Suspect chronic hypoproliferative + iatrogenic in s/o prolonged hospitalization. Per chart review, chronic anemia reportedly due to myelodysplastic syndrome (which makes sense given macrocytosis & normal iron studies) & follows w/ hematology (no recent note viewable per my chart review) Baseline Hgb 9-11 2020. Normal iron/ferritin 12/2020. No bleeding. Minimize labs. (8) Thrombocytopenia: Plan: Likely due to portal HTN in s/o cirrhosis. Baseline 80-90s since fall 2020. Previously 150s early 2020 w/ some prior periods of decline into ~80s Monitor intermittently while inpatient Maintain pharmacologic DVT ppx with Lovenox as Plt >50k, although likely autoanticoagulated given liver disease, INR 1.2 (9) Depression: Plan: Continue home escitalopram 20mg (10) Migraine: Plan: Continue home nurtec PRN migraine (11) Left lateral abdominal pain: Plan: Resolved 04/13/21 Left sided abdominal pain. No fevers or stool change to suggest diverticulitis. No association w/ eating, not characteristic of heartburn or dyspepsia. No ascites on US ascites study 04/12/21 so no concern for SBP. Highest suspicion is that this was positional related to prolonged time in bed --> no reported issues today Plan: DVT ppx: Lovenox ppx 40mg q24h + IPCs per patient request Code: Full Dispo: Awaiting placement as unable to care for her at home. Possibly tomorrow in [place]?? Admission and Anticipated Discharge Date Admission Date: January 31, 2021 Subjective No acute events overnight. States she is doing well today. Mentation remains at baseline. Only complains of dry eyes and will SHEBA artificial tears Review of Systems Review of Systems: All systems reviewed & are unremarkable except as noted in Subjective Physical Exam Physical Exam: PHYSICAL EXAM General Appearance: Frail; in NAD who is A&O x 3 less fatigued apearing HEENT: Head is normocephalic/atraumatic; Hearing grossly intact; anicteric sclera Neck: Supple; Trachea midline; Neg JVD Psychiatric: appropriate mood/affect Skin: Normal Color; Warm/Dry Results & Data Results & Data ([facility]) Vital Signs (Past 12 Hours) Vital Signs Temp Pulse Resp BP Pulse Ox 04/19/21 07:32 37.4 C 73 16 132/68 97 PG Care Time/CCT Total # of Minutes Spent Total Time Spent with Patient: Total time spent is greater than 50% in coordination of care (as documented) at patient's floor/unit and/or counseling patient: Coding Level of Care Code 70780 Subseq Hosp Care Lvl 1 Diagnoses Cirrhosis K74.60 Diabetes mellitus E11.9 Seizure R56.9 Parkinsonism G20 Osteoporosis M81.0 Left foot pain M79.672 Chronic anemia D64.9 Thrombocytopenia D69.6 Depression F32.9 Migraine G43.909 Left lateral abdominal pain R10.9
[2021-04-19] MEDS: ACETAMINOPHEN 500 MG TAB PO SCH (21:35)
[2021-04-19] MEDS: FAMOTIDINE 20 MG TAB PO SCH (21:37)
[2021-04-19] MEDS: MELATONIN 3 MG TAB PO SCH (21:46)
[2021-04-19] MEDS: [UNRECOGNIZED DRUG - REMARK] SQ SCH (21:46)
[2021-04-20] MEDS: PROMETHAZINE HCL 25 MG TAB PO PRN (04:14)
[2021-04-20] MEDS: LEVOTHYROXINE SODIUM 50 MCG TABLET PO SCH (05:58)
[2021-04-20] MEDS: ARTIFICIAL TEARS OP SCH ×2 (09:05→14:56)
[2021-04-20] MEDS: LIDOCAINE 5% 1 PATCH TD SCH (09:06)
[2021-04-20] MEDS: LACTULOSE SYRUP 20 GM/30 ML UDC PO SCH ×2 (09:06→13:50)
[2021-04-20] MEDS: TOPIRAMATE 100 MG TAB PO SCH (09:07)
[2021-04-20] MEDS: PRAVASTATIN SOD 20 MG TAB PO SCH (09:07)
[2021-04-20] MEDS: OXcarbazepine 150 MG TABLET PO SCH (09:07)
[2021-04-20] MEDS: rOPINIRole HCL 0.25 MG TABLET PO SCH (09:07)
[2021-04-20] MEDS: rifAXIMin 550 MG TABLET PO SCH (09:07)
[2021-04-20] MEDS: MAGNESIUM OXIDE 400 MG TAB PO SCH (09:07)
[2021-04-20] MEDS: BENZTROPINE MESYLATE 1 MG TAB PO SCH ×2 (09:08→15:05)
[2021-04-20] MEDS: levETIRAcetam 500 MG TAB PO SCH (09:08)
[2021-04-20] MEDS: FUROSEMIDE 20 MG TAB PO SCH (09:08)
[2021-04-20] MEDS: INSULIN GLARGINE SOLOSTAR 100 UNITS/ML 3 ML PEN SC SCH (09:08)
[2021-04-20] MEDS: ESCITALOPRAM OXALATE 20 MG TAB PO SCH (09:08)
[2021-04-20] MEDS: HYDROCORTISONE 10 MG TAB PO SCH (09:08)
[2021-04-20] MEDS: FEXOFENADINE 60 MG TAB PO SCH (09:08)
[2021-04-20] MEDS: ENOXAPARIN INJ 40 MG/0.4 ML SYR SQ SCH (09:09)
[2021-04-20] MEDS: DICLOFENAC SOD 1% GEL 100 GM TUBE EXT SCH ×2 (09:09→12:53)
[2021-04-20] MEDS: INSULIN ASPART PER UNIT SC SCH ×2 (09:14→12:56)
--- NOTE | 2021-04-20 17:02 | Discharge Summary ---
Date of Service April 20, 2021 Admission HPI Per Admitting Provider Marcelle Munson is a 55yo female with multiple medical problems presenting with altered mental status. Patient is well known to the ER and medical service. Patient was admitted to [facility] from 08/19/20 - 09/02/20 for infection of orthopedic hardware with enterococcus faecalis. She was also diagnosed with ACTH deficiency during that hospital stay and was started on steroid replacement therapy. She was disch arged to rehabilitation on 09/02/20 and completed 3 weeks of rehab. Patient was admitted to [facility] from 12/05/20 - 12/08/20 for acute UTI and AMS. She was treated with Ceftriaxone and discharged on Bactrim. She returned home with health services at that time. Patient was admitted to [facility] from 12/29/20 - 01/02/21 following a syncopal event and treated for hepatic encephalopathy Patient was admitted to [facility] from 01/19/21 - 01/22/21 with worsening confusion due to acute on chronic hepatic encephalopathy Patient presents to the ER today for worsening confusion and erratic behavior. states he is concerned about UTI due to darker and stronger smelling urine over the last few days. Patient seen by PCP last week and has been in contact with the Office of Aging and are making movements to have patient placed in a halfway. Patient is unable to provide details of history. is no longer at bedside at time of interview. Patient denies pain. Is able to state name and answer some questions. ER Course: Ceftriaxone, NSS x 1L Principal Diagnosis Metabolic Encephalopathy due to UTI Discharge Exam PHYSICAL EXAM General Appearance: Frail; in NAD who is A&O x 3 less fatigued apearing HEENT: Head is normocephalic/atraumatic; Hearing grossly intact; anicteric sclera Neck: Supple; Trachea midline; Neg JVD Psychiatric: appropriate mood/affect Skin: Normal Color; Warm/Dry Discharge Data Allergies Allergy/AdvReac Type Severity Reaction Status Date / Time metronidazole Allergy Severe SEIZURE Verified 01/30/21 23:34 tramadol Allergy Severe SEIZURES Verified 01/30/21 23:34 amoxicillin Allergy Intermediate SEE COMMENT Verified 01/30/21 23:34 baclofen Allergy Intermediate RASH Verified 01/30/21 23:34 butalbital Allergy Intermediate HIVES Verified 01/30/21 23:34 dicyclomine Allergy Intermediate HIVES Verified 01/30/21 23:34 pollen extracts Allergy Intermediate Hives Verified 01/30/21 23:34 Sulfa (Sulfonamide Allergy Intermediate CAUSES Verified 01/30/21 23:34 Antibiotics) BLACK STOOLS Tetracyclines Allergy Intermediate DOXYCYCLINE Verified 01/30/21 23:34 -HIVES adhesive Allergy Mild RASH, Verified 01/30/21 23:34 DUODERM=RED,ITCHY celecoxib Allergy Mild HIVES Verified 01/30/21 23:34 sulindac Allergy Mild ALLERGY Verified 01/30/21 23:34 LISTED "CLONDORAL"--HIVES Cephalosporins AdvReac Severe TURNS Verified 01/30/21 23:34 STOOL VERY DARK levofloxacin [From Levaquin] AdvReac Severe Vomiting Verified 01/30/21 23:34 metoclopramide AdvReac Severe SEIZURES Verified 01/30/21 23:34 paroxetine [From Paxil] AdvReac Severe Vomiting Verified 01/30/21 23:34 dextromethorphan AdvReac Mild Vomiting Verified 01/30/21 23:34 Ordered Studies Chest X-Ray 01/30/21 23:41 XR chest 1V portable HISTORY: 55 years-old Female SEPSIS acute sepsis COMPARISON: Chest radiograph 01/19/2021 TECHNIQUE: Portable AP view of the chest FINDINGS: The patient is mildly rotated towards the left. Cardiomegaly. Right IJ Ofeaos-c-Hzbr catheter is unchanged. There is no pneumothorax, pleural effusion, airspace consolidation or overt pulmonary edema. Mild interstitial coarsening has progressed. Degenerative changes of the shoulders and spine. IMPRESSION: Cardiomegaly with mild interstitial coarsening suggestive of pulmonary vascular congestion or interstitial pneumonitis. ACT 112: Negative or not required by law. The above report was generated using voice recognition software. It may contain grammatical, syntax or spelling errors. Electronically signed by: Ruben Segura M.D. 01/31/2021 7:30 AM Foot X-Ray 03/29/21 12:01 XR foot LT min 3V routine CLINICAL HISTORY: left foot pain. COMPARISON STUDY: No previous studies for comparison. TECHNIQUE: 3 left ankle views FINDINGS: Bones: Bones are osteopenic. There is no evidence for an acute fracture or dislocation. There is no lytic or blastic lesion. Joints: There is a pes cavus deformity along with hammertoe deformities present involving the toes. There is moderate joint space narrowing present involving the IP joints, MTP joints and intertarsal joint spaces. No erosive changes are seen. Soft tissues: There is no focal soft tissue abnormality. There is no radiopaque foreign body. IMPRESSION: Osteopenia with no acute osseous pathology. Pes cavus deformity and hammertoe deformities with diffuse joint space narrowing. ACT 112: Negative or not required by law. Electronically signed by: Rick Meza M.D. 03/29/2021 12:53 PM Venous Doppler Study 04/09/21 14:00 LEFT LOWER EXTREMITY VENOUS DOPPLER CLINICAL HISTORY: prolonged immobility. Left lower extremity pain. COMPARISON STUDY: Bilateral lower extremity venous Doppler ultrasound February 18, 2019. TECHNIQUE: Sonography of the deep venous system of the left lower extremity was performed. Compression and augmentation were evaluated. FINDINGS: The left common femoral, superficial femoral and popliteal veins were compressible. Augmentation was normal. Flow was shown within the deep calf vessels. IMPRESSION: No evidence of deep venous thrombus within the left lower extremity. ACT 112: Negative or not required by law. Electronically signed by: Rolan Chan M.D. 04/09/2021 3:09 PM Abdomen Ultrasound 04/12/21 11:30 US abdomen ltd ascites HISTORY: 55 years-old Female abd pain, cirrhosis, no h/o ascites acute generalized abdominal pain with history of cirrhosis COMPARISON: CT abdomen and pelvis 05/09/2020 TECHNIQUE: Multiple real-time sonographic images of the abdominal abdomen were obtained assessing grayscale appearance FINDINGS/IMPRESSION: No abdominal ascites identified. ACT 112: Negative or not required by law. The above report was generated using voice recognition software. It may contain grammatical, syntax or spelling errors. Electronically signed by: Ruben Segura M.D. 04/12/2021 11:39 AM Hospital Course (1) Cirrhosis: Clinically stable Initially hospitalized w/ hepatic encephalopathy 2/2 UTI. Has been resolved, at baseline mentation, for weeks Cirrhosis 2/2 STEVE (c/b portal hypertension) Followed by Hepatology at [facility] + Dr Paris CHAPIN GI Not listed for transplant Decompensated due to recent HE MELD-Na: 11 as of labs 04/10/21 History of HE No varices, variceal hemorrhage (last EGD 06/2020 - mild PHG) No ascites, SBP; No HPS or PPHTN; No HRS; No HCC (last RUQ US 09/2020 & AFP 02/2019 - likely more recently done at [facility]) Continue Lactulose TID, Rifaximin 550mg BID Continue pepcid 20mg po qhs Continue furosemide 20mg daily. Not on aldactone. - Periodically assess MELD labs (CMP + INR) - Max 2G APAP per day - Outpatient follow up: Annual RUQ US + AFP for HCC screening (next due 09/2021). EGD q3y for variceal screening (next due 06/2023) (2) Diabetes mellitus: Type 2 diabetes, well controlled, long-term use of insulin.Last A1c 5.6 05/2020. Follows with Endocrinology/Diabetes education. Last seen on 01/04/21. Continue home regimen Hydrocortisone BID for suspected adrenal insufficiency. --> Note endocrinology plans to repeat testing outpatient to confirm diagnosis BSGs acceptable (3) Seizure: Stable. No recent seizures in past 1+ year Follows with neurology, [facility] 10/30/20 - mixed tremor, dyskinesia, seizure history, parkinsonism. EEG 05/2018 generalized spike and slow wave abnormality consistent with underlying generalized seizure disorder. MRI brain 10/2017 unremarkable. Prior failed VNS placement, device explanted. Presently on topiramate, Trileptal and Keppra. - Continue topiramate, trileptal, Keppra - Continue Ropinirole - Continue Benztropine for EPS (4) Parkinsonism: - Secondary to psych meds, continue benztropine (5) Osteoporosis: Endocrinology note 12/2020 notes patient on Forteo daily. Started early 2020, plan to continue for 2y. - Continue Forteo (6) Left foot pain: Gradually improving left foot/leg pain. Chronic. Suspect related to deformity and contracture of foot + bedbound; L foot more medially rotated and also having more plantar deviation and suspect this is due to her worsening ability to ambulate and more sedentary lifestyle. XR Foot 03/29/21: pes cavus deformity and hammertoe deformities with diffuse joint space narrowing Orthotics consult: may need custom shoes, f/u outpatient. No boot available that would help w/ stretching while inpatient. LLE DVT US 04/09/21 negative for DVT - Tylenol 500 mg BID PRN + 1000mg HS (Max 2G/day given cirrhosis) - Voltaren gel & lidocaine patch ordered, she does not feel they are helping. (note adhesive allergy. If rash develops, discontinue lido patch) - Continue heat and alternate with ice for pain, gentle stretchin (7) Chronic anemia: Chronic. Improved/resolved on most recent labs. Suspect chronic hypoproliferative + iatrogenic in s/o prolonged hospitalization. Per chart review, chronic anemia reportedly due to myelodysplastic syndrome (which makes sense given macrocytosis & normal iron studies) & follows w/ hematology (no recent note viewable per my chart review) Baseline Hgb 9-11 2020. Normal iron/ferritin 12/2020. (8) Thrombocytopenia: Likely due to portal HTN in s/o cirrhosis. Baseline 80-90s since fall 2020. Previously 150s early 2020 w/ some prior periods of decline into ~80s (9) Depression: Continue home escitalopram 20mg (10) Migraine: Continue home nurtec PRN migraine (11) Left lateral abdominal pain: Resolved 04/13/21 Left sided abdominal pain. No fevers or stool change to suggest diverticulitis. No association w/ eating, not characteristic of heartburn or dyspepsia. No ascites on US ascites study 04/12/21 so no concern for SBP. Highest suspicion is that this was positional related to prolonged time in bed Discharged to [place] in [facility] [place] Total Time Total Time Spent Total Time Spent (In Minutes): Spent greater than 30 minutes preparing patient for discharge. This includes discussion with patient/family, assessment, intervention, medication reconciliation, and coordination of care. Discharge Plan Discharge Items Patient Disposition: Transfer Care Home Fac Reason For Visit: AMS Discharge Diagnosis: Confusion due to urinary tract infection and hepatic encephalopathy Activity: Resume your previous activity Non-emergency contact: Primary Care Provider Call non-emergency contact if: you have any medication questions and your symptoms worsen Follow-up/Referrals: Jade Currie PA-C [Primary Care Provider] - Diet: Carb Consistent or DM2 Addtl Attending Provider Instructions: Cirrhosis: STABLE - Initially hospitalized w/ hepatic encephalopathy 2/2 UTI. Has been resolved, at baseline mentation, for weeks -- Marcelle commonly can run higher ammonias - can average 70s-120 without change in mentation. She has been hospitalized due to non-compliance with Lactulose in the past. Typically responds with just getting her regimen on board. As she has been hospitalized for almost 80 days, this has not been an issue Cirrhosis 2/2 STEVE (c/b portal hypertension) Followed by Hepatology at [facility] + Dr Paris CHAPIN GI Not listed for transplant MELD-Na: 11 as of labs 04/10/21 No varices, variceal hemorrhage (last EGD 06/2020 - mild PHG) No ascites, SBP; No HPS or PPHTN; No HRS; No HCC (last RUQ US 09/2020 & AFP 02/2019 - likely more recently done at [facility]) Continue Lactulose TID, Rifaximin 550mg BID --> Titrate lactulose as needed to achieve ~3BM/d. Ammonia level 120 on 04/15 and increased lactulose to 30mg TID but down to 109 which is relatively good for this patient. She is at baseline mentation - continue normal home dosing Continue pepcid 20mg po qhs Continue furosemide 20mg daily. Not on aldactone. - Periodically assess MELD labs (CMP + INR) - Max 2G Tylenol per day - She like to take 1000 mg at bedtime for chronic pain and therefore can have 500 mg BID as needed in a 24 hour period - Outpatient follow up: Annual RUQ US + AFP for HCC screening (next due 09/2021). EGD q3y for variceal screening (next due 06/2023) Diabetes mellitus: Type 2 diabetes, well controlled, long-term use of insulin.Last A1c 5.6 05/2020. Follows with Endocrinology/Diabetes education. Last seen on 01/04/21. - Can get established with provider to consider de-escalation of anti-diabetics in the future Hydrocortisone BID ( 10 mg AM and 5 mg PM) for suspected adrenal insufficiency. --> Note endocrinology plans to repeat testing outpatient to confirm diagnosis BSGs acceptable, monitor may bring dexcom to see if we could use that to avoid frequent finger sticks. Seizure History: Stable. No recent seizures in past 1+ year; questionable pseudoseizures in the past Follows with neurology, last office visit 10/30/20 - mixed tremor, dyskinesia, seizure history, parkinsonism. EEG 05/2018 generalized spike and slow wave abnormality consistent with underlying generalized seizure disorder. MRI brain 10/2017 unremarkable. Prior failed VNS placement, device explanted. Presently on topiramate, Trileptal 300 mg AM and 600 mg PM and Keppra. - Continue topiramate, trileptal, Keppra - Continue Ropinirole - Continue Benztropine for EPS Parkinsonism: Plan: - Secondary to psych meds, continue benztropine - At baseline has rotational movements of the head. Seems to decrease when distracted Osteoporosis: Endocrinology note 12/2020 notes patient on Forteo daily. Started early 2020, [place] to continue for 2y. - Continue Forteo Left foot pain: Gradually improving left foot/leg pain. Chronic. Suspect related to deformity and contracture of foot + bedbound; L foot more medially rotated and also having more plantar deviation and suspect this is due to her worsening ability to ambulate and more sedentary lifestyle. XR Foot 03/29/21: pes cavus deformity and hammertoe deformities with diffuse joint space narrowing Orthotics consult: may need custom shoes, f/u outpatient with podiatry if able. No boot available that would help w/ stretching while inpatient. LLE DVT US 04/09/21 negative for DVT - Tylenol 500 mg BID PRN + 1000mg HS (Max 2G/day given cirrhosis) - Voltaren gel - Continue heat and alternate with ice for pain, gentle stretching - History of chronic opiate use but has been off for awhile. We do try to avoid them with her Chronic anemia: Chronic. Improved/resolved on most recent labs. Suspect chronic hypoproliferati ve + iatrogenic in s/o prolonged hospitalization. Per chart review, chronic anemia reportedly due to myelodysplastic syndrome (which makes sense given macrocytosis & normal iron studies) & follows w/ hematology (no recent note viewable per my chart review) Baseline Hgb 9-11 2020. Normal iron/ferritin 12/2020. No bleeding. Thrombocytopenia: Likely due to portal HTN in s/o cirrhosis. Baseline 80-90s since fall 2020. STABLE Monitor intermittently Depression: -Continue home escitalopram 20mg Migraine: - Continue home nurtec PRN migraine Pending Studies at Discharge: No Stand-Alone Forms: My [facility] Skilled Items Patient informed of condition?: Yes DNR: No Discharge Level of Care: Skilled Communicable Disease: No Discharge Prognosis: Stable Lines: None Urinary Catheter: No Medications and DC Order Prescriptions: New acetaminophen [Tylenol Extra Strength] 500 mg Tablet 1,000 mg PO HS Qty: 0 RF: 0 acetaminophen [Tylenol Extra Strength] 500 mg Tablet 500 mg PO BID PRNQty: 0 RF: 0 furosemide 20 mg Tablet 20 mg PO QAM Qty: 0 RF: 0 Continued ipratropium-albuterol 0.5 mg-3 mg(2.5 mg base)/3 mL solution for nebulization 3 ml INH QID PRN (Reason: wheezing) Qty: 90 RF: 0 Nurtec ODT 75 mg tablet,disintegrating 75 mg PO DAILY PRN (Reason: migraine headache) 30 Days Qty: 8 RF: 3 topiramate 100 mg tablet 100 mg PO BID Qty: 60 RF: 5 albuterol sulfate 90 mcg/actuation HFA aerosol inhaler 2 puff inhalation Q4H PRN (Reason: shortness of breath) Qty: 1 RF: 3 Xifaxan 550 mg tablet 550 mg PO BID Qty: 60 RF: 5 insulin aspart U-100 [Novolog Flexpen U-100 Insulin] 100 unit/mL (3 mL) insulin pen 15 - 25 unit SQ TID MDD 60 units Qty: 30 RF: 5 benztropine 1 mg tablet 1 mg PO TID 30 Days Qty: 90 RF: 1 levothyroxine [Euthyrox] 50 mcg tablet 50 mcg PO QAM Qty: 30 RF: 2 omeprazole 40 mg capsule,delayed release(DR/EC) 40 mg PO QAM Qty: 90 RF: 1 ropinirole 0.25 mg tablet 0.25 mg PO BID 90 Days Qty: 180 RF: 1 famotidine 20 mg tablet 20 mg PO HS Qty: 90 RF: 3 calcium carbonate [Calcium 500] 500 mg calcium (1,250 mg) tablet 500 mg PO DAILY RF: 0 levetiracetam 750 mg tablet 1,500 mg PO BID 30 Days Qty: 120 RF: 5 cholecalciferol (vitamin D3) [Vitamin D3] 25 mcg (1,000 unit) capsule 5,000 unit PO DAILY RF: 0 budesonide-formoterol [Symbicort] 160-4.5 mcg/actuation HFA aerosol inhaler 2 puff inhalation BID PRN (Reason: Shortness Of Breath) RF: 0 Tresiba FlexTouch U-100 100 unit/mL (3 mL) insulin pen 30 unit subcut QAM RF: 0 promethazine 25 mg tablet 25 mg PO Q8H PRN (Reason: nausea and vomiting) Qty: 10 RF: 0 ascorbate calcium (vitamin C) 500 mg tablet 500 mg PO DAILY RF: 0 vitamin E (dl, acetate) 180 mg (400 unit) capsule 180 mg PO Q OTHER DAY RF: 0 epinephrine [EpiPen 2-Garret] 0.3 mg/0.3 mL auto-injector 0.3 mg IM Q10M PRN (Reason: Anaphylaxis) RF: 0 lecithin 1,200 mg capsule 1,200 mg PO QDL RF: 0 cranberry 400 mg capsule 400 mg PO BIDM RF: 0 multivitamin [Multiple Vitamins] Tablet 1 tab PO QDL RF: 0 zinc 50 mg Tablet 50 mg PO QDL RF: 0 vitamin A 8,000 unit Capsule 8,000 unit PO QDL RF: 0 vitamin B complex Tablet 1 tab PO QDL RF: 0 Probiotic 3 billion cell Capsule 1 mmu cells PO QDL RF: 0 fexofenadine 60 mg Tablet 60 mg PO QAM RF: 0 hydrocortisone 10 mg tablet See Rx Instructions .ROUTE .COMPLEX RF: 0 oxcarbazepine 300 mg tablet See Rx Instructions .ROUTE .COMPLEX RF: 0 diclofenac sodium [Voltaren Arthritis Pain] 1 % Gel 4 g EXT QID Qty: 100 RF: 0 lactulose 20 gram/30 mL Solution 20 ml PO TID Qty: 3000 RF: 0 pravastatin 20 mg tablet 20 mg PO QAM RF: 0 teriparatide [Forteo] 20 mcg/dose (620mcg/2.48mL) pen injector 20 mcg subcut PM RF: 0 escitalopram oxalate 20 mg tablet 20 mg PO DAILY RF: 0 melatonin 5 mg tablet 10 mg PO HS Qty: 1 RF: 0 magnesium oxide 400 mg (241.3 mg magnesium) tablet 400 mg PO BID Qty: 0 RF: 0 Changed Refresh Optive Advanced 0.5-1-0.5 % drops 2 drops OP HS Qty: 0 RF: 0 Discharge Orders: Discharge Order (Routine); Ordered 04/20/21 Ordered By: Elisa Deleon Admission Data Admit Date/Time: 01/31/21 05:36 Attending Provider: Serjio Suarez Admit Provider: Amalia Beatty Primary Care Provider: Jade Currie Other Providers: [facility] ; [facility] ; [facility] ; [facility], ; Erick Rice Other Interventions: Discharge Summary Assessment (RN) Last Done: 04/20/21 12:34 Supervising Physician Co-Signing Physician Notes Attending note: patient seen and examined with Elisa Deleon PA-C. I agree with her discharge summary. I personally reviewed the labs and imaging findings. patient here for extended stay, target process for placement at SNF as she cannot stay at home, family cannot provide care that she needs her chronic medical issues are stable, specifically her hepatic encephalopathy - Cirrhosis complicated by hepatic encephalopathy: managed with lactulose, check ammonia levels if mental status is altered otherwise she is well compensated see above for her issues Coding Level of Care Code D/C DAY MANAGEMENT >30 MINS Diagnoses Cirrhosis K74.60 Diabetes mellitus E11.9 Seizure R56.9 Parkinsonism G20 Osteoporosis M81.0 Left foot pain M79.672 Chronic anemia D64.9 Thrombocytopenia D69.6 Depression F32.9 Migraine G43.909 Left lateral abdominal pain R10.9
== END 2021-04-20 15:21 | DRG 442 ==
LOC: ED 20:50 → SUATTDRO 01-31 05:36 → EDINP 01-31 05:36 → 3N 01-31 13:36

== ENCOUNTER 2021-07-22 08:29 | Inpatient (IN) ==
[2021-07-22] MEDS ORDERED: SODIUM CHLORIDE 0.9% 500 ML IV SCH (09:15)
[2021-07-22 09:24] LABS: Hematocrit (blood only) 30.7 % (37-47); Hemoglobin 10.2 g/dL (12.0-16.0); Mean Corpuscular Hemoglobin 34.2 pg (25-34); Mean Corpuscular Hgb Conc 33.2 g/dL (32-36); RDW Standard Deviation 52.2 fL (36.4-46.3); Red Blood Count 2.98 M/uL (4.2-5.4); White Blood Count 2.94 K/uL (4.8-10.8)
--- NOTE | 2021-07-22 09:27 | Emergency Department Note ---
Impression & Plan Acute alteration in mental status, Acute hepatic encephalopathy, Urinary tract infection ED Provider Note NAME: CHRISTO SAN AGE: 55 SEX: F : 1965 ARRIVES VIA: Walk-In INFORMANT: Patient, the patient's significant other ED PROVIDER(S): Hemant Willard DO CHIEF COMPLAINT: Altered mental status HPI: The patient is a 55-year-old female who presented to the emergency department for an evaluation of decreased mental status. The patient presented with her significant other who does provide the history. The patient has been compliant with her usual medications. There is no history of trauma. She has been on no new prescription medications but she has been trying some ebur-ufz-gosftuh supplements such as turmeric to help with her mental status. She is not seen her family doctor recently but she was in our facility recently for similar complaints. There is been no reported fever nausea or vomiting. There is been no reported chest pain or difficulty breathing. The significant other states that she started to improve elaborate this morning especially when he was trying to bring her to the emergency department by vehicle. The patient has been taking her lactulose. There is been no reported constipation black or bloody bowel movements. ROS: See above HPI for pertinent positives & negatives. A total of 10 systems reviewed and were otherwise negative. PAST MEDICAL HISTORY: See Below PAST SURGICAL HISTORY: See Below FAMILY HISTORY: See Below SOCIAL HISTORY: See Below HOME MEDICATIONS: See Below ALLERGIES: See Below VITALS: See Below PHYSICAL EXAMINATION: GENERAL: Patient is listless and will not follow commands. She would not open her eyes. EYES: The conjunctivae are clear. The pupils are round and reactive. EARS, NOSE, MOUTH AND THROAT: The nose is without any evidence of any deformity. Mucous membranes are moist. NECK: The neck is nontender and supple. RESPIRATORY: Normal respiratory effort is noted there is no evidence of wheezing rhonchi or rales CARDIOVASCULAR: Regular rate and rhythm noted there no murmurs rubs or gallops normal S1 normal S2. GASTROINTESTINAL: The abdomen is soft. Abdomen is nontender. MUSCULOSKELETAL/EXTREMITIES: There is no evidence of gross deformity full range of motion is noted in the hips and shoulders. SKIN: The skin is warm and dry. Trace pedal edema was noted bilaterally. NEUROLOGIC: Patient is listless and will not answer questions. I cannot assess orientation at this time. Patellar tendon reflexes were 1+ bilaterally. MEDICAL DECISION MAKING: The patient is a 55-year-old female who presented to the emergency department for an evaluation of altered mental status. The patient has a history of hepatic encephalopathy. She was found to have an elevation in her ammonia level even higher than her baseline. She was treated with lactulose in the emergency department. I discussed the patient's laboratory and radiographic studies with her. Ultimately she was also found no signs of urinary tract infection. He was diagnosed with urinary tract infection recently and started on antibiotics. Those antibiotics were changed when she was noted to have an ESBL bacteria. She was treated today with IV antibiotics would cover this bacteria. She was reevaluated multiple times. Ultimately I did discuss her case with the on-call [facility]. They have agreed to evaluate the patient in the emergency department for further management and disposition. Triage Nursing notes reviewed. Prior medical records reviewed Vital Signs: reviewed and remarkable for elevated blood pressure. Differential diagnosis: Infection, hypoglycemia, electrolyte abnormalities, overdose, toxicologic, cardiac sources, intracerebral event, neurologic, trauma, as well as other pat hologies. ER treatment provided: See below Diagnostics interpreted by me: ECG: EKG was obtained in the emergency department. My interpretation is normal sinus rhythm at 60 bpm. There is no ectopy. There is no acute ST segment abnormalities noted. This was compared to a tracing from July 10, 2021. No changes were noted. Cardiac Monitoring: An order was placed for continuous cardiac monitoring. The monitor shows a rate of 60 bpm with sinus rhythm. Laboratory studies: As stated above and show below. Imaging studies: See below Consultation(s): I discussed this case with Dr. Gallego who is on-call for the [facility] group. Past Med/Surg History Medical History Altered mental status Depression Frequent falls See care alert special indicator. H/O osteoporotic pathological fracture Hyperammonemia Migraine Myoclonic seizure "FREQUENT MYOCLONIC SEIZURES" FOLLOWS WITH DR. YANG Nonalcoholic fatty liver disease Pancytopenia Chronic. Follows with cancer center. Platelets have been > 100 since 10/2019, WNL on 05/23 labs. H/H stable in 8-10 range. Parkinsonism Sleepiness Spleen enlargement UTI (urinary tract infection) Surgical History Femur fracture, right SPIRAL FRACTURE REPAIRED (HARDWARE REPAIRED) History of ankle surgery RT/LEFT History of appendectomy History of cholecystectomy History of colonoscopy History of esophagogastroduodenoscopy (EGD) History of kyphoplasty History of open reduction and internal fixation (ORIF) procedure RT HIP History of surgery (~06/02/20) screw/plate removal from left humerus History of surgery on arm LEFT (HARDWARE INTACT) History of tooth extraction History of vascular access device right A port Hx of carpal tunnel repair RT/LEFT Hx of cataract extraction RT/LEFT S/P laminectomy lumbar spine S/P nasal surgery nasal bone fracture repair S/P TIFFANIE-BSO (1997) Family History Other Adopted No pertinent family history Social History Smoking Status: Never smoker Tobacco Type: Cigarettes Second Hand Exposure: No; Hx Alcohol Use: No Hx Substance Use: No Preferred Language: Northern Irish Communication Ability: Effective Visual Impairment: No Limitations Machine Operations Supervisor Required: No Beliefs That Will Affect Care: None marital status: Current Living Situation: Spouse Current Living Situation Comment: Lives with current occupational status: unemployed and disabled How many Children do You have: 0 Feels Safe at Home: Yes Seatbelt Use: always Assistive Devices: Denture - Upper, Denture - Lower and Glasses Allergies Allergies Allergy/AdvReac Type Severity Reaction Status Date / Time metoclopramide Allergy Severe SEIZURES Verified 07/22/21 10:07 metronidazole Allergy Severe SEIZURE Verified 07/22/21 10:07 tramadol Allergy Severe SEIZURES Verified 07/22/21 10:07 amoxicillin Allergy Intermediate SEE COMMENT Verified 07/22/21 10:07 baclofen Allergy Intermediate RASH Verified 07/22/21 10:07 butalbital Allergy Intermediate HIVES Verified 07/22/21 10:07 dicyclomine Allergy Intermediate HIVES Verified 07/22/21 10:07 nitrofurantoin Allergy Intermediate HIVES/RASH/SEVERE Verified 07/22/21 10:07 [From Macrobid] ITCHING pollen extracts Allergy Intermediate Hives Verified 07/22/21 10:07 Sulfa (Sulfonamide Allergy Intermediate CAUSES Verified 07/22/21 10:07 Antibiotics) BLACK STOOLS Tetracyclines Allergy Intermediate DOXYCYCLINE Verified 07/22/21 10:07 -HIVES adhesive Allergy Mild RASH, Verified 07/22/21 10:07 DUODERM=RED,ITCHY celecoxib Allergy Mild HIVES Verified 07/22/21 10:07 sulindac Allergy Mild ALLERGY Verified 07/22/21 10:07 LISTED "CLONDORAL"--HIVES Cephalosporins AdvReac Severe TURNS Verified 07/22/21 10:07 STOOL VERY DARK levofloxacin [From Levaquin] AdvReac Severe Vomiting Verified 07/22/21 10:07 paroxetine [From Paxil] AdvReac Severe Vomiting Verified 07/22/21 10:07 dextromethorphan AdvReac Mild Vomiting Verified 07/22/21 10:07 Home Meds Home Medications Medication Instructions Recorded Confirmed multivitamin (Multiple Vitamins) 1 tab PO QDL 12/26/17 07/22/21 lactobacillus combination no.4 3 1 mmu cells PO QDL 09/20/18 07/22/21 billion cell capsule (Probiotic) vitamin A 2,400 mcg capsule 8,000 unit PO QDL 09/20/18 07/22/21 vitamin B complex 1 tab PO QDL 09/20/18 07/22/21 zinc 50 mg tablet 50 mg PO QDL 02/09/19 07/22/21 epinephrine 0.3 mg/0.3 mL 0.3 mg IM Q10M PRN 04/02/19 07/22/21 injection, auto-injector (EpiPen 2-Garret) lecithin 1,200 mg capsule 1,200 mg PO QDL 04/29/19 07/22/21 fexofenadine 60 mg tablet 60 mg PO QAM 04/12/20 07/22/21 cranberry 400 mg capsule 400 mg PO BIDM 06/08/20 07/22/21 ascorbate calcium (vitamin C) 500 500 mg PO QDL 11/16/20 07/22/21 mg tablet vitamin E (dl, acetate) 180 mg 180 mg PO Q OTHER DAY cap 11/16/20 07/22/21 (400 unit) capsule cholecalciferol (vitamin D3) 25 5,000 unit PO QDL cap 11/30/20 07/22/21 mcg (1,000 unit) capsule (Vitamin D3) hydrocortisone 10 mg tablet See Rx Instructions .ROUTE 11/30/20 07/22/21 .COMPLEX tab oxcarbazepine 300 mg tablet See Rx Instructions .ROUTE 11/30/20 07/22/21 .COMPLEX tab pravastatin 20 mg tablet 20 mg PO QAM 12/05/20 07/22/21 escitalopram oxalate 20 mg tablet 20 mg PO QAM 12/29/20 07/22/21 acetaminophen 500 mg tablet 500 mg PO BID PRN 06/22/21 07/22/21 (Tylenol Extra Strength) diclofenac sodium 1 % topical gel 4 g EXT QID PRN 06/22/21 07/22/21 (Voltaren Arthritis Pain) Blue-Emu Cream 1 applic TOPICAL HS 07/22/21 07/22/21 Cognitive Formula 1 tab PO QDL 07/22/21 07/22/21 calcium carbonate 500 mg calcium 500 mg PO QDL 07/22/21 07/22/21 (1,250 mg) tablet Previous Rx's Medication Instructions Recorded topiramate 100 mg tablet 100 mg PO BID #60 tab 05/17/20 albuterol sulfate 90 mcg/actuation 2 puff INHALATION Q4H PRN #1 05/31/20 aerosol inhaler inhaler rifaximin 550 mg tablet (Xifaxan) 550 mg PO BID #60 tab 07/24/20 promethazine 25 mg tablet 25 mg PO Q8H PRN #10 tab 10/11/20 levetiracetam 750 mg tablet 1,500 mg PO BID 30 Days #120 tab 10/30/20 levothyroxine 50 mcg tablet 50 mcg PO QAM #30 tab 11/10/20 (Euthyrox) omeprazole 40 mg capsule,delayed 40 mg PO QAM #90 cap 11/15/20 release magnesium oxide 400 mg (241.3 mg 400 mg PO BID #0 tab 01/02/21 magnesium) tablet melatonin 5 mg tablet 10 mg PO HS #1 tab 01/02/21 ropinirole 0.25 mg tablet 0.25 mg PO BID 90 Days #180 tab 01/10/21 acetaminophen 500 mg tablet 1,000 mg PO HS #0 tab 04/20/21 (Tylenol Extra Strength) uioqhaonxdvukmyvdflxvi-onrmdmlj-lqrufdno 2 drops OP HS #0 ml 04/20/21 80 0.5 %-1 %-0.5 % eye drops (Refresh Optive Advanced) pen needle, diabetic 32 gauge x #400 ea 03/29/22 5/32" (BD Ultra-Fine [place] Pen Needle) insulin aspart U-100 100 unit/mL 15 - 25 unit SQ TID #30 ml MDD 60 07/07/21 (3 mL) subcutaneous pen (Novolog units Flexpen U-100 Insulin aspart) insulin degludec 100 unit/mL (3 30 unit SUBCUT QAM #15 ml 07/07/21 mL) subcutaneous pen (Tresiba FlexTouch U-100 insulin) lactulose 20 gram/30 mL oral 45 ml PO BID #2880 ml 07/11/21 solution blood sugar diagnostic (OneTouch #50 ea 07/17/21 Verio test strips) galcanezumab-gnlm 120 mg/mL 240 mg SUBCUT ONCE 30 Days #2 ml 07/19/21 subcutaneous pen injector (Emgality Pen) ipratropium 0.5 mg-albuterol 3 mg 3 ml INH QID PRN #90 ml 07/19/21 (2.5 mg base)/3 mL nebulization soln benztropine 1 mg tablet 1 mg PO TID 30 Days #90 tab 07/20/21 teriparatide 20 mcg/dose (620 20 mcg SUBCUT PM #7.44 ml 07/20/21 mcg/2.48 mL) subcutaneous pen injector Results & Data (ED) Vital Signs Vital Signs - 24 hr 07/22/21 08:35 07/22/21 08:46 07/22/21 08:50 Temperature 37.0 C Temperature Source Oral Pulse Rate 62 63 Pulse Rate [Radial] 61 Pulse Rate from SpO2 Sensor 63 Pulse Rhythm [Radial] Regular Pulse Strength [Radial] Normal Respiratory Rate 20 22 20 Respiratory Effort / Characteristics Non-Labored Non-Labored Respiratory Depth Normal Normal Respiratory Pattern Regular Blood Pressure 147/73 H 146/63 H Blood Pressure [Right Arm] 146/63 H Blood Pressure Mean 97 90 Blood Pressure Mean [Right Arm] 90 Blood Pressure Position [Right Arm] Lying Pulse Oximetry 100 100 100 Oxygen Delivery Method Room Air Room Air Room Air Sepsis Recent Fever Within 48 Hours No Sepsis New/Unexplained Change in Mental Status N/A Sepsis Action Taken by Nursing No Action Required 07/22/21 09:00 07/22/21 09:15 07/22/21 09:30 Temperature Temperature Source Pulse Rate 62 59 L 62 Pulse Rate [Radial] Pulse Rate from SpO2 Sensor 67 60 62 Pulse Rhythm [Radial] Pulse Strength [Radial] Respiratory Rate 19 18 26 H Respiratory Effort / Characteristics Respiratory Depth Respiratory Pattern Blood Pressure 128/56 L 150/58 H 127/67 Blood Pressure [Right Arm] Blood Pressure Mean 80 88 87 Blood Pressure Mean [Right Arm] Blood Pressure Position [Right Arm] Pulse Oximetry 100 100 100 Oxygen Delivery Method Room Air Room Air Room Air Sepsis Recent Fever Within 48 Hours Sepsis New/Unexplained Change in Mental Status Sepsis Action Taken by Nursing 07/22/21 09:45 07/22/21 10:00 07/22/21 10:15 Temperature Temperature Source Pulse Rate 58 L 60 58 L Pulse Rate [Radial] Pulse Rate from SpO2 Sensor 61 Pulse Rhythm [Radial] Pulse Strength [Radial] Respiratory Rate 22 22 21 Respiratory Effort / Characteristics Respiratory Depth Respiratory Pattern Blood Pressure 153/69 H 156/67 H 156/59 H Blood Pressure [Right Arm] Blood Pressure Mean 97 96 91 Blood Pressure Mean [Right Arm] Blood Pressure Position [Right Arm] Pulse Oximetry 100 100 Oxygen Delivery Method Room Air Room Air Sepsis Recent Fever Within 48 Hours Sepsis New/Unexplained Change in Mental Status Sepsis Action Taken by Nursing 07/22/21 10:45 07/22/21 11:00 07/22/21 11:15 Temperature Temperature Source Pulse Rate 60 63 59 L Pulse Rate [Radial] Pulse Rate from SpO2 Sensor Pulse Rhythm [Radial] Pulse Strength [Radial] Respiratory Rate 21 18 21 Respiratory Effort / Characteristics Respiratory Depth Respiratory Pattern Blood Pressure 152/74 H 165/73 H 136/80 Blood Pressure [Right Arm] Blood Pressure Mean 100 103 98 Blood Pressure Mean [Right Arm] Blood Pressure Position [Right Arm] Pulse Oximetry Oxygen Delivery Method Sepsis Recent Fever Within 48 Hours Sepsis New/Unexplained Change in Mental Status Sepsis Action Taken by Nursing 07/22/21 11:30 Temperature Temperature Source Pulse Rate 60 Pulse Rate [Radial] Pulse Rate from SpO2 Sensor Pulse Rhythm [Radial] Pulse Strength [Radial] Respiratory Rate 25 H Respiratory Effort / Characteristics Respiratory Depth Respiratory Pattern Blood Pressure 156/70 H Blood Pressure [Right Arm] Blood Pressure Mean 98 Blood Pressure Mean [Right Arm] Blood Pressure Position [Right Arm] Pulse Oximetry 95 Oxygen Delivery Method Room Air Sepsis Recent Fever Within 48 Hours Sepsis New/Unexplained Change in Mental Status Sepsis Action Taken by Shelter Medications Current Medication List: was personally reviewed by me Laboratory Data Attestation: I reviewed the patient's lab results. Result diagrams: 07/22/21 09:09 07/22/21 09:09 Lab Results 07/22/21 07/22/21 07/22/21 Range/Units 09:09 09:09 09:09 WBC 2.94 L (4.8-10.8) K/uL RBC 2.98 L (4.2-5.4) M/uL Hgb 10.2 L (12.0-16.0) g/dL Hct 30.7 L (37-47) % MCV 103.0 H (80-100) fL MCH 34.2 H (25-34) pg MCHC 33.2 (32-36) g/dL RDW Std Deviation 52.2 H (36.4-46.3) fL RDW Coeff of Irina 14.0 (11.5-14.5) % Plt Count 79 L (130-400) K/uL MPV 10.8 H (7.4-10.4) fL Immature Gran % (Auto) 0.0 % Neut % (Auto) 49.6 % Lymph % (Auto) 35.0 % [place] % (Auto) 9.2 % Eos % (Auto) 4.8 % Baso % (Auto) 1.4 % Neut # (Auto) 1.46 (1.4-6.5) K/uL Lymph # (Auto) 1.03 L (1.2-3.4) K/uL [place] # (Auto) 0.27 (0.11-0.59) K/uL Eos # (Auto) 0.14 (0-0.5) K/uL Baso # (Auto) 0.04 (0-0.2) K/uL Immature Gran # (Auto) 0.00 (0.00-0.02) K/uL PT 13.4 H (9.0-12.0) Seconds INR 1.3 H (0.9-1.1) APTT 32.9 H (21.0-31.0) Seconds PTT Ratio 1.2 Sodium 145 (136-145) mmol/L Potassium 3.7 (3.5-5.1) mmol/L Chloride 118 H (98-107) mmol/L Carbon Dioxide 23 (21-32) mmol/L Anion Gap 4 (3-11) BUN 14 (6-23) mg/dl Creatinine 0.49 L (0.6-1.2) mg/dl Est Cr Clr Drug Dosing 125.0 ml/min Est GFR ( Amer) 127.1 ml/min Est GFR (Non-Af Amer) 109.7 ml/min BUN/Creatinine Ratio 28.6 H (10-20) Glucose 91 (70-99(Fasting)) mg/dl Calcium 7.8 L (8.5-10.1) mg/dl Magnesium 1.6 L (1.7-2.4) mg/dl Total Bilirubin 1.1 H (0.2-1.0) mg/dl AST 34 (13-39) U/L ALT 29 (7-52) U/L Alkaline Phosphatase 139 H (34-104) U/L Ammonia (18-72) umol/L Total Creatine Kinase 28 (26-192) U/L Troponin I High Sens 4.4 (0-14) pg/ml Total Protein 5.3 L (6.0-8.3) gm/dl Albumin 2.8 L (3.4-5.0) gm/dl Globulin 2.5 (2.5-4.0) gm/dl Albumin/Globulin Ratio 1.1 (0.9-2) TSH (0.300-4.500) uIu/ml Free T4 (0.61-1.60) ng/dl Urine Color Urine Appearance (Clear) Urine pH (4.5-7.5) Ur Specific [place] (1.000-1.030) Urine Protein (Negative) Urine Glucose (UA) (Negative) Urine Ketones (Negative) Urine Blood (Negative) Urine Nitrite (Negative) Urine Bilirubin (Negative) Urine Urobilinogen (Negative) Ur Leukocyte Esterase (Negative) Urine WBC (Auto) (0-5) /hpf Urine RBC (Auto) (0-4) /hpf U Hyaline Cast (Auto) (0-5) /lpf U Epithel Cells (Auto) (0-5) /lpf Urine Bacteria (Auto) (Negative) 07/22/21 07/22/21 07/22/21 Range/Units 09:09 09:09 09:32 WBC (4.8-10.8) K/uL RBC (4.2-5.4) M/uL Hgb (12.0-16.0) g/dL Hct (37-47) % MCV (80-100) fL MCH (25-34) pg MCHC (32-36) g/dL RDW Std Deviation (36.4-46.3) fL RDW Coeff of Irina (11.5-14.5) % Plt Count (130-400) K/uL MPV (7.4-10.4) fL Immature Gran % (Auto) % Neut % (Auto) % Lymph % (Auto) % [place] % (Auto) % Eos % (Auto) % Baso % (Auto) % Neut # (Auto) (1.4-6.5) K/uL Lymph # (Auto) (1.2-3.4) K/uL [place] # (Auto) (0.11-0.59) K/uL Eos # (Auto) (0-0.5) K/uL Baso # (Auto) (0-0.2) K/uL Immature Gran # (Auto) (0.00-0.02) K/uL PT (9.0-12.0) Seconds INR (0.9-1.1) APTT (21.0-31.0) Seconds PTT Ratio Sodium (136-145) mmol/L Potassium (3.5-5.1) mmol/L Chloride (98-107) mmol/L Carbon Dioxide (21-32) mmol/L Anion Gap (3-11) BUN (6-23) mg/dl Creatinine (0.6-1.2) mg/dl Est Cr Clr Drug Dosing ml/min Est GFR ( Amer) ml/min Est GFR (Non-Af Amer) ml/min BUN/Creatinine Ratio (10-20) Glucose (70-99(Fasting)) mg/dl Calcium (8.5-10.1) mg/dl Magnesium (1.7-2.4) mg/dl Total Bilirubin (0.2-1.0) mg/dl AST (13-39) U/L ALT (7-52) U/L Alkaline Phosphatase (34-104) U/L Ammonia 165.0 H (18-72) umol/L Total Creatine Kinase (26-192) U/L Troponin I High Sens (0-14) pg/ml Total Protein (6.0-8.3) gm/dl Albumin (3.4-5.0) gm/dl Globulin (2.5-4.0) gm/dl Albumin/Globulin Ratio (0.9-2) TSH 4.595 H (0.300-4.500) uIu/ml Free T4 0.68 (0.61-1.60) ng/dl Urine Color Yellow Urine Appearance Clear (Clear) Urine pH 8.0 H (4.5-7.5) Ur Specific [place] 1.010 (1.000-1.030) Urine Protein Negative (Negative) Urine Glucose (UA) Negative (Negative) Urine Ketones Negative (Negative) Urine Blood Negative (Negative) Urine Nitrite Positive A (Negative) Urine Bilirubin Negative (Negative) Urine Urobilinogen Negative (Negative) Ur Leukocyte Esterase 1+ H (Negative) Urine WBC (Auto) 10-30 H (0-5) /hpf Urine RBC (Auto) 0-4 (0-4) /hpf U Hyaline Cast (Auto) 1-5 (0-5) /lpf U Epithel Cells (Auto) 0-5 (0-5) /lpf Urine Bacteria (Auto) 4+ H (Negative) Administered Medications Discontinued Medications Fosfomycin Tromethamine (Fosfomycin Tromethamine 3 Gm Packet) 3 gm PO ONE ONE Stop: 07/22/21 10:31 Last Admin: 07/22/21 11:05 Dose: 3 gm Documented by: [id number] Sodium Chloride (Nss) 500 mls @ 999 mls/hr IV .Q31M SHEBA Stop: 07/22/21 09:45 Last Infusion: 07/22/21 10:10 Dose: 0 mls/hr Documented by: [id number] Admin: 07/22/21 09:38 Dose: 999 mls/hr Documented by: [id number] Magnesium Sulfate/Dextrose (Magnesium Sulfate / D5w) 1 gm in 100 mls @ 100 mls/hr IV NOW STA Stop: 07/22/21 11:03 Last Infusion: 07/22/21 11:11 Dose: 0 mls/hr Documented by: [id number] Admin: 07/22/21 10:11 Dose: 100 mls/hr Documented by: [id number] Lactulose (Lactulose Syrup 30 Gm/45 Ml Udp) 30 gm PO NOW STA Stop: 07/22/21 10:54 Last Admin: 07/22/21 11:59 Dose: 30 gm Documented by: [id number] Imaging Data Radiologist's Impression: Chest X-Ray 07/22/21 09:02 XR chest 1V portable CLINICAL HISTORY: weakness COMPARISON STUDY: Chest radiograph January 30, 2021. FINDINGS: Lung volumes are normal. Lungs are clear. There is no pneumothorax or pleural effusion. Cardiomegaly is unchanged. Mediastinal contours are normal. There is no evidence for pulmonary edema. Right internal jugular Mkqnsf-n-Mdgj is in place. Old proximal left humeral deformity is noted. IMPRESSION: No acute cardiopulmonary findings. ACT 112: Negative or not required by law. Electronically signed by: Rolan Chan M.D. 07/22/2021 10:13 AM Discharge Plan Visit Data Chief Complaint: Illness Stated Complaint: FATIGUE, NOT VERY RESPONSIVE ED Provider: Hemant Willard Discharge Problem: Acute alteration in mental status, Acute hepatic encephalopathy, Urinary tract infection Patient Disposition: Being Evaluated by Hospitalist Forms Stand Alone Forms: My [facility] [employer] Prescriptions Prescriptions: No Action topiramate 100 mg tablet 100 mg PO BID Qty: 60 RF: 5 albuterol sulfate 90 mcg/actuation HFA aerosol inhaler 2 puff inhalation Q4H PRN (Reason: shortness of breath) Qty: 1 RF: 3 Xifaxan 550 mg tablet 550 mg PO BID Qty: 60 RF: 5 levothyroxine [Euthyrox] 50 mcg tablet 50 mcg PO QAM Qty: 30 RF: 2 omeprazole 40 mg capsule,delayed release(DR/EC) 40 mg PO QAM Qty: 90 RF: 1 ropinirole 0.25 mg tablet 0.25 mg PO BID 90 Days Qty: 180 RF: 1 (DME) pen needle, diabetic [BD Ultra-Fine [place] Pen Needle] 32 gauge x 5/32" needle See Rx Instructions .Route Qty: 400 RF: 3 insulin aspart U-100 [Novolog Flexpen U-100 Insulin] 100 unit/mL (3 mL) insulin pen 15 - 25 unit SQ TID MDD 60 units Qty: 30 RF: 5 Tresiba FlexTouch U-100 100 unit/mL (3 mL) insulin pen 30 unit subcut QAM Qty: 15 RF: 1 lactulose 20 gram/30 mL solution 45 ml PO BID Qty: 2880 RF: 1 ipratropium-albuterol 0.5 mg-3 mg(2.5 mg base)/3 mL solution for nebulization 3 ml INH QID PRN (Reason: wheezing) Qty: 90 RF: 0 teriparatide 20 mcg/dose (620mcg/2.48mL) pen injector 20 mcg subcut PM Qty: 7.44 RF: 0 benztropine 1 mg tablet 1 mg PO TID 30 Days Qty: 90 RF: 5 levetiracetam 750 mg tablet 1,500 mg PO BID 30 Days Qty: 120 RF: 5 cholecalciferol (vitamin D3) [Vitamin D3] 25 mcg (1,000 unit) capsule 5,000 unit PO QDL RF: 0 promethazine 25 mg tablet 25 mg PO Q8H PRN (Reason: nausea and vomiting) Qty: 10 RF: 0 ascorbate calcium (vitamin C) 500 mg tablet 500 mg PO QDL RF: 0 vitamin E (dl, acetate) 180 mg (400 unit) capsule 180 mg PO Q OTHER DAY RF: 0 (DME) OneTouch Verio test strips Strip See Rx Instructions .Route Qty: 50 RF: 5 epinephrine [EpiPen 2-Garret] 0.3 mg/0.3 mL auto-injector 0.3 mg IM Q10M PRN (Reason: Anaphylaxis) RF: 0 lecithin 1,200 mg capsule 1,200 mg PO QDL RF: 0 cranberry 400 mg capsule 400 mg PO BIDM RF: 0 Emgality Pen 120 mg/mL pen injector 240 mg subcut ONCE 30 Days Qty: 2 RF: 0 multivitamin [Multiple Vitamins] Tablet 1 tab PO QDL RF: 0 zinc 50 mg Tablet 50 mg PO QDL RF: 0 vitamin A 8,000 unit Capsule 8,000 unit PO QDL RF: 0 vitamin B complex Tablet 1 tab PO QDL RF: 0 Probiotic 3 billion cell Capsule 1 mmu cells PO QDL RF: 0 fexofenadine 60 mg Tablet 60 mg PO QAM RF: 0 hydrocortisone 10 mg tablet See Rx Instructions .ROUTE .COMPLEX RF: 0 oxcarbazepine 300 mg tablet See Rx Instructions .ROUTE .COMPLEX RF: 0 calcium carbonate [Calcium 500] 500 mg calcium (1,250 mg) Tablet 500 mg PO QDL RF: 0 Blue-Emu Cream 1 applic topical HS RF: 0 Cognitive Formula 1 tab PO QDL RF: 0 pravastatin 20 mg tablet 20 mg PO QAM RF: 0 escitalopram oxalate 20 mg tablet 20 mg PO QAM RF: 0 melatonin 5 mg tablet 10 mg PO HS Qty: 1 RF: 0 magnesium oxide 400 mg (241.3 mg magnesium) tablet 400 mg PO BID Qty: 0 RF: 0 acetaminophen [Tylenol Extra Strength] 500 mg Tablet 1,000 mg PO HS Qty: 0 RF: 0 Refresh Optive Advanced 0.5-1-0.5 % drops 2 drops OP HS Qty: 0 RF: 0 acetaminophen [Tylenol Extra Strength] 500 mg tablet 500 mg PO BID PRN (Reason: Pain) RF: 0 diclofenac sodium [Voltaren Arthritis Pain] 1 % gel 4 g EXT QID PRN (Reason: Pain) RF: 0 Referrals Referrals: PCP,NO [Primary Care Provider] -
[2021-07-22 09:35] LABS: Basophils # (auto) 0.04 K/uL (0-0.2); Basophils % (auto) 1.4 %; Eosinophils # (auto) 0.14 K/uL (0-0.5); Eosinophils % (auto) 4.8 %; Lymphocytes # (auto) 1.03 K/uL (1.2-3.4); Mean Platelet Volume 10.8 fL (7.4-10.4); Monocytes # (auto) 0.27 K/uL (0.11-0.59); Monocytes % (auto) 9.2 %; Neutrophils # (auto) 1.46 K/uL (1.4-6.5); Neutrophils % (auto) 49.6 %; Platelet Count 79 K/uL (130-400)
[2021-07-22 09:37] LABS: INR 1.3 (0.9-1.1); Partial Thromboplastin Ratio 1.2; Partial Thromboplastin Time 32.9 Seconds (21.0-31.0); Prothrombin Time 13.4 Seconds (9.0-12.0)
[2021-07-22 09:50] LABS: Troponin I High Sensitivity 4.4 pg/ml (0-14)
[2021-07-22 09:51] LABS: Albumin Globulin Ratio 1.1 (0.9-2); Albumin Level 2.8 gm/dl (3.4-5.0); BUN Creatinine Ratio 28.6 (10-20); Bilirubin,Total 1.1 mg/dl (0.2-1.0); Calcium 7.8 mg/dl (8.5-10.1); Est GFR (African American) 127.1 ml/min; Est GFR (Non-African American) 109.7 ml/min; Globulin 2.5 gm/dl (2.5-4.0); Magnesium 1.6 mg/dl (1.7-2.4); Potassium 3.7 mmol/L (3.5-5.1); Total Protein 5.3 gm/dl (6.0-8.3)
[2021-07-22 09:58] LABS: Appearance Urine Clear (Clear); Bacteria Urine Automated 4+ (Negative); Bilirubin Urine Negative (Negative); Blood Urine Negative (Negative); Color Urine Yellow; Epithelial Cell Urine Auto 0-5 /lpf (0-5); Glucose Urine UA Negative (Negative); Ketones Urine Negative (Negative); Leukocyte Esterase Urine 1+ (Negative); Nitrite Urine Positive (Negative); Protein Urine Negative (Negative); RBC Urine Automated 0-4 /hpf (0-4); Urobilinogen Urine Negative (Negative)
[2021-07-22 10:00] LABS: Thyroid Stimulating Hormone 4.595 uIu/ml (0.300-4.500)
[2021-07-22] MEDS ORDERED: MAGNESIUM SULFATE / D5W 1 GM/100 ML BAG IV STA (10:04)
--- NOTE | 2021-07-22 10:15 | XRay Report ---
XR chest 1V portable CLINICAL HISTORY: weakness COMPARISON STUDY: Chest radiograph January 30, 2021. FINDINGS: Lung volumes are normal. Lungs are clear. There is no pneumothorax or pleural effusion. Car diomegaly is unchanged. Mediastinal contours are normal. There is no evidence for pulmonary edema. Ri ght internal jugular [id number] is in place. Old proximal left humeral deformity is noted. IMPRESSION: No acute cardiopulmonary findings. ACT 112: Negative or not required by law. Electronically signed by: Rolan Chan M.D. 07/22/2021 10:13 AM
[2021-07-22] MEDS ORDERED: FOSFOMYCIN TROMETHAMINE 3 GM PACKET PO ONE (10:30)
[2021-07-22 10:40] LABS: T4 Free Thyroxine 0.68 ng/dl (0.61-1.60)
[2021-07-22] MEDS ORDERED: LACTULOSE SYRUP 30 GM/45 ML UDP PO STA (10:53)
--- NOTE | 2021-07-22 11:07 | History & Physical Report ---
Date of Service July 22, 2021 Assessment & Plan (1) Acute alteration in mental status: Plan: Patient admitted for confusion. Ammonia level is above 100. Will treat for hepatic encephalopathy. Will hold off further antibiotics as patient already has a reason for her c onfusion. Most likely patient has asymptomatic bacteruria.continue lactulose but at a more frequent dose of q4h until 2 BM today. will resume diet once patient is less confused. (2) Cirrhosis: Plan: From [place], causing problem 1. (3) Migraine: Plan: Patient with episodic migraines. Well-controlled. -Continue topiramate -Patient has used Maxalt in the past with success for migraine relief if needed (4) Parkinsonism: Plan: stable (5) Obesity (BMI 30.0-34.9): Plan: recommend liftstyle modifcations. will defer to PCP (6) Dyslipidemia: Plan: resume home meds (7) Diabetes mellitus: Plan: consult glycemic control, History of Present Illness Chief Complaint: confusion Primary Care Provider: NO PCP This is a pleasantly confused 55 yo female with multiple admision from hepatic encephalopathy who recently just had an extensive hospitalization late 2020 into Mar 2021. Patient comes in as last evening she appeared to be more leathergic as per her . She appeared to have been dozing off while watching tv. And patient would not wake up. Patient is not able to provide much history. is also concerned about a possible UTI. Patient though has not had worsening urinary incontinence, nor has she complained of dyruria, urinary urgency. UA was positive and ER provider ordered a dose of antibiotics. Patient has been taking her lactulose, but she has not been having consistent moderate sized BMs during this past week. Allergies Allergy/AdvReac Type Severity Reaction Status Date / Time metoclopramide Allergy Severe SEIZURES Verified 07/22/21 10:07 metronidazole Allergy Severe SEIZURE Verified 07/22/21 10:07 tramadol Allergy Severe SEIZURES Verified 07/22/21 10:07 amoxicillin Allergy Intermediate SEE COMMENT Verified 07/22/21 10:07 baclofen Allergy Intermediate RASH Verified 07/22/21 10:07 butalbital Allergy Intermediate HIVES Verified 07/22/21 10:07 dicyclomine Allergy Intermediate HIVES Verified 07/22/21 10:07 nitrofurantoin Allergy Intermediate HIVES/RASH/SEVERE Verified 07/22/21 10:07 [From Macrobid] ITCHING pollen extracts Allergy Intermediate Hives Verified 07/22/21 10:07 Sulfa (Sulfonamide Allergy Intermediate CAUSES Verified 07/22/21 10:07 Antibiotics) BLACK STOOLS Tetracyclines Allergy Intermediate DOXYCYCLINE Verified 07/22/21 10:07 -HIVES adhesive Allergy Mild RASH, Verified 07/22/21 10:07 DUODERM=RED,ITCHY celecoxib Allergy Mild HIVES Verified 07/22/21 10:07 sulindac Allergy Mild ALLERGY Verified 07/22/21 10:07 LISTED "CLONDORAL"--HIVES Cephalosporins AdvReac Severe TURNS Verified 07/22/21 10:07 STOOL VERY DARK levofloxacin [From Levaquin] AdvReac Severe Vomiting Verified 07/22/21 10:07 paroxetine [From Paxil] AdvReac Severe Vomiting Verified 07/22/21 10:07 dextromethorphan AdvReac Mild Vomiting Verified 07/22/21 10:07 Home Medications Medication Instructions Recorded Confirmed Type multivitamin (Multiple Vitamins) 1 tab PO QDL 12/26/17 07/22/21 History lactobacillus combination no.4 3 1 mmu cells PO QDL 09/20/18 07/22/21 History billion cell capsule (Probiotic) vitamin A 2,400 mcg capsule 8,000 unit PO QDL 09/20/18 07/22/21 History vitamin B complex 1 tab PO QDL 09/20/18 07/22/21 History zinc 50 mg tablet 50 mg PO QDL 02/09/19 07/22/21 History epinephrine 0.3 mg/0.3 mL 0.3 mg IM Q10M PRN 04/02/19 07/22/21 History injection, auto-injector (EpiPen 2-Garret) lecithin 1,200 mg capsule 1,200 mg PO QDL 04/29/19 07/22/21 History fexofenadine 60 mg tablet 60 mg PO QAM 04/12/20 07/22/21 History topiramate 100 mg tablet 100 mg PO BID #60 tab 05/17/20 07/22/21 Rx albuterol sulfate 90 mcg/actuation 2 puff INHALATION Q4H PRN #1 05/31/20 07/22/21 Rx aerosol inhaler inhaler cranberry 400 mg capsule 400 mg PO BIDM 06/08/20 07/22/21 History rifaximin 550 mg tablet (Xifaxan) 550 mg PO BID #60 tab 07/24/20 07/22/21 Rx promethazine 25 mg tablet 25 mg PO Q8H PRN #10 tab 10/11/20 07/22/21 Rx levetiracetam 750 mg tablet 1,500 mg PO BID 30 Days #120 tab 10/30/20 07/22/21 Rx levothyroxine 50 mcg tablet 50 mcg PO QAM #30 tab 11/10/20 07/22/21 Rx (Euthyrox) omeprazole 40 mg capsule,delayed 40 mg PO QAM #90 cap 11/15/20 07/22/21 Rx release ascorbate calcium (vitamin C) 500 500 mg PO QDL 11/16/20 07/22/21 History mg tablet vitamin E (dl, acetate) 180 mg 180 mg PO Q OTHER DAY cap 11/16/20 07/22/21 History (400 unit) capsule cholecalciferol (vitamin D3) 25 5,000 unit PO QDL cap 11/30/20 07/22/21 History mcg (1,000 unit) capsule (Vitamin D3) hydrocortisone 10 mg tablet See Rx Instructions .ROUTE 11/30/20 07/22/21 History .COMPLEX tab oxcarbazepine 300 mg tablet See Rx Instructions .ROUTE 11/30/20 07/22/21 History .COMPLEX tab pravastatin 20 mg tablet 20 mg PO QAM 12/05/20 07/22/21 History escitalopram oxalate 20 mg tablet 20 mg PO QAM 12/29/20 07/22/21 History magnesium oxide 400 mg (241.3 mg 400 mg PO BID #0 tab 01/02/21 07/22/21 Rx magnesium) tablet melatonin 5 mg tablet 10 mg PO HS #1 tab 01/02/21 07/22/21 Rx ropinirole 0.25 mg tablet 0.25 mg PO BID 90 Days #180 tab 01/10/21 07/22/21 Rx acetaminophen 500 mg tablet 1,000 mg PO HS #0 tab 04/20/21 07/22/21 Rx (Tylenol Extra Strength) wtgdhpushpwxcvjgoplvpv-vmeyyplk-wlihltrm 2 drops OP HS #0 ml 04/20/21 07/22/21 Rx 80 0.5 %-1 %-0.5 % eye drops (Refresh Optive Advanced) acetaminophen 500 mg tablet 500 mg PO BID PRN 06/22/21 07/22/21 History (Tylenol Extra Strength) diclofenac sodium 1 % topical gel 4 g EXT QID PRN 06/22/21 07/22/21 History (Voltaren Arthritis Pain) pen needle, diabetic 32 gauge x #400 ea 06/26/21 07/19/21 Rx 5/32" (BD Ultra-Fine [place]idan Pen Needle) insulin aspart U-100 100 unit/mL 15 - 25 unit SQ TID #30 ml MDD 60 07/07/21 07/22/21 Rx (3 mL) subcutaneous pen (Novolog units Flexpen U-100 Insulin aspart) insulin degludec 100 unit/mL (3 30 unit SUBCUT QAM #15 ml 07/07/21 07/22/21 Rx mL) subcutaneous pen (Tresiba FlexTouch U-100 insulin) lactulose 20 gram/30 mL oral 45 ml PO BID #2880 ml 07/11/21 07/22/21 Rx solution blood sugar diagnostic (OneTouch #50 ea 07/17/21 07/19/21 Rx Verio test strips) galcanezumab-gnlm 120 mg/mL 240 mg SUBCUT ONCE 30 Days #2 ml 07/19/21 07/22/21 Rx subcutaneous pen injector (Emgality Pen) ipratropium 0.5 mg-albuterol 3 mg 3 ml INH QID PRN #90 ml 07/19/21 07/22/21 Rx (2.5 mg base)/3 mL nebulization soln benztropine 1 mg tablet 1 mg PO TID 30 Days #90 tab 07/20/21 07/22/21 Rx teriparatide 20 mcg/dose (620 20 mcg SUBCUT PM #7.44 ml 07/20/21 07/22/21 Rx mcg/2.48 mL) subcutaneous pen injector Blue-Emu Cream 1 applic TOPICAL HS 07/22/21 07/22/21 History Cognitive Formula 1 tab PO QDL 07/22/21 07/22/21 History calcium carbonate 500 mg calcium 500 mg PO QDL 07/22/21 07/22/21 History (1,250 mg) tablet Past Med/Surg History Medical History Altered mental status Depression Frequent falls See care alert special indicator. H/O osteoporotic pathological fracture Hyperammonemia Migraine Myoclonic seizure "FREQUENT MYOCLONIC SEIZURES" FOLLOWS WITH DR. YANG Nonalcoholic fatty liver disease Pancytopenia Chronic. Follows with cancer center. Platelets have been > 100 since 10/2019, WNL on 05/23 labs. H/H stable in 8-10 range. Parkinsonism Sleepiness Spleen enlargement UTI (urinary tract infection) Surgical History Femur fracture, right SPIRAL FRACTURE REPAIRED (HARDWARE REPAIRED) History of ankle surgery RT/LEFT History of appendectomy History of cholecystectomy History of colonoscopy History of esophagogastroduodenoscopy (EGD) History of kyphoplasty History of open reduction and internal fixation (ORIF) procedure RT HIP History of surgery (~06/02/20) screw/plate removal from left humerus History of surgery on arm LEFT (HARDWARE INTACT) History of tooth extraction History of vascular access device right A port Hx of carpal tunnel repair RT/LEFT Hx of cataract extraction RT/LEFT S/P laminectomy lumbar spine S/P nasal surgery nasal bone fracture repair S/P TIFFANIE-BSO (1997) Family History Other Adopted No pertinent family history Social History Smoking Status: Never smoker Tobacco Type: Cigarettes Second Hand Exposure: No; Hx Alcohol Use: No Hx Substance Use: No Preferred Language: Syrian Communication Ability: Effective Visual Impairment: No Limitations 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: No Beliefs That Will Affect Care: None marital status: Current Living Situation: Spouse Current Living Situation Comment: Lives with current occupational status: unemployed and disabled How many Children do You have: 0 Feels Safe at Home: Yes Safety Concerns: Feels Safe At This Time Seatbelt Use: always Assistive Devices: Walker Review of Systems Review of Systems: Unobtainable due to cognitive status Physical Exam Physical Exam: General: patient awake, minimally responsive,bobbing head, does not participate with exam Skin: warm, dry, intact HEENT: NC/AT, PERRL, EOMI, anicteric sclera, conjunctiva without injection, external ear normal to inspection and nontender, nares patent, dry mucus membranes, dentition intact, no oropharyngeal lesions, neck supple, trachea midline, no LAD, no thyromegaly, no JVD Heart: +S1/S2, regular, no m/r/g Lungs: equal air entry bilaterally, no rales/rhonchi/wheezes Abd: +BS, soft, NT/ND, no masses/organomegaly/ascites Ext: warm, 2+ pulses in UE/LE bilaterally, no clubbing/cyanosis or edema Neuro: moving extremities, bobbing head as seen during prior exams Results & Data Results & [facility] ([facility]) Vital Signs (Past 12 Hours) Vital Signs Temp Pulse Pulse Resp BP BP Pulse Ox 07/22/21 10:00 60 22 156/67 H 100 07/22/21 09:45 58 L 22 153/69 H 100 07/22/21 09:30 62 26 H 127/67 100 07/22/21 09:15 59 L 18 150/58 H 100 07/22/21 09:00 62 19 128/56 L 100 07/22/21 08:50 37.0 C 61 20 146/63 H 100 07/22/21 08:46 63 22 146/63 H 100 07/22/21 08:35 62 20 147/73 H 100 PG Care Time/CCT Total # of Minutes Spent Total Time Spent with Patient: Total time spent is greater than 50% in coordination of care (as documented) at patient's floor/unit and/or counseling patient: Coding Level of Care Code 06713 Initial Inpt Care Lvl 3 Diagnoses Acute alteration in mental status R41.82 Cirrhosis K74.60 Migraine G43.909 Parkinsonism G20 Obesity (BMI 30.0-34.9) E66.9 Dyslipidemia E78.5 Diabetes mellitus E11.9
[2021-07-22] MEDS ORDERED: EPINEPHrine INJ 1 MG/ML AMP IM PRN (11:46)
[2021-07-22] MEDS ORDERED: PROMETHAZINE HCL 25 MG TAB PO PRN (11:46)
[2021-07-22] MEDS ORDERED: DICLOFENAC SOD 1% GEL 100 GM TUBE EXT PRN (11:46)
[2021-07-22] MEDS ORDERED: ACETAMINOPHEN 500 MG TAB PO PRN ×2 (11:46→17:54)
[2021-07-22] MEDS ORDERED: ALBUTEROL HFA 8 GM INHALER INH PRN (11:46)
--- NOTE | 2021-07-22 12:13 | Electrocardiogram Report ---
Test Reason : Blood Pressure : / mmHG Vent. Rate : 060 BPM Atrial Rate : 060 BPM P-R Int : 174 ms QRS Dur : 094 ms QT Int : 450 ms P-R-T Axes : -17 -04 022 degrees QTc Int : 450 ms Normal sinus rhythm Normal ECG When compared with ECG of 10-JUL-2021 23:07, No significant change was found Confirmed by Hemant Garcia ([id number]) on 07/22/2021 12:13:16 PM Referred By: Confirmed By:Hemant Garcia
[2021-07-22] MEDS ORDERED: GLUCOSE 10 TABS/TUBE PO PRN (15:30)
[2021-07-22] MEDS ORDERED: CARBOHYDRATES FOR HYPOGLYCEMIA PO PRN (15:30)
[2021-07-22] MEDS ORDERED: GLUCAGON FOR INJ 1 MG VIAL IM PRN (15:30)
[2021-07-22] MEDS ORDERED: DEXTROSE 50% 50 ML SYRINGE IV PRN (15:30)
[2021-07-22] MEDS ORDERED: GLUCOSE 40% GEL 15 GM TUBE PO PRN (15:30)
[2021-07-22] MEDS: BENZTROPINE MESYLATE 1 MG TAB PO SCH ×2 (17:03→20:03)
[2021-07-22] MEDS ORDERED: PHARMACY GLYCEMIC MGMT CONSULT PRN (17:31)
[2021-07-22] MEDS: LACTULOSE SYRUP 30 GM/45 ML UDP PO SCH ×3 (18:01→23:52)
[2021-07-22] MEDS: INSULIN ASPART PER UNIT SC SCH ×2 (19:21→21:38)
[2021-07-22] MEDS: HYDROCORTISONE 10 MG TAB PO SCH (20:03)
[2021-07-22] MEDS: levETIRAcetam 500 MG TAB PO SCH (20:04)
[2021-07-22] MEDS: MAGNESIUM OXIDE 400 MG TAB PO SCH (20:04)
[2021-07-22] MEDS: OXcarbazepine 150 MG TABLET PO SCH (20:04)
[2021-07-22] MEDS: rOPINIRole HCL 0.25 MG TABLET PO SCH (20:05)
[2021-07-22] MEDS: TOPIRAMATE 100 MG TAB PO SCH (20:05)
[2021-07-22] MEDS: rifAXIMin 550 MG TABLET PO SCH (20:05)
[2021-07-22] MEDS: ARTIFICIAL TEARS OP SCH (20:15)
[2021-07-23] MEDS: LACTULOSE SYRUP 30 GM/45 ML UDP PO SCH ×4 (04:00→17:53)
[2021-07-23] MEDS: LEVOTHYROXINE SODIUM 50 MCG TABLET PO SCH (05:18)
[2021-07-23] MEDS ORDERED: INSULIN GLARGINE SOLOSTAR 100 UNITS/ML 3 ML PEN SQ SCH ×2 (09:00)
[2021-07-23] MEDS: INSULIN ASPART PER UNIT SC SCH ×4 (09:15→20:45)
[2021-07-23] MEDS: FEXOFENADINE 60 MG TAB PO SCH (09:17)
[2021-07-23] MEDS: PRAVASTATIN SOD 20 MG TAB PO SCH (09:17)
[2021-07-23] MEDS: PANTOprazole 40 MG TAB PO SCH (09:17)
[2021-07-23] MEDS: OXcarbazepine 150 MG TABLET PO SCH ×2 (09:17→20:37)
[2021-07-23] MEDS: MAGNESIUM OXIDE 400 MG TAB PO SCH ×2 (09:18→20:36)
[2021-07-23] MEDS: ESCITALOPRAM OXALATE 20 MG TAB PO SCH (09:18)
[2021-07-23] MEDS: HYDROCORTISONE 10 MG TAB PO SCH ×2 (09:18→20:36)
[2021-07-23] MEDS: TOPIRAMATE 100 MG TAB PO SCH ×2 (09:18→20:39)
[2021-07-23] MEDS: rifAXIMin 550 MG TABLET PO SCH ×2 (09:18→20:38)
[2021-07-23] MEDS: rOPINIRole HCL 0.25 MG TABLET PO SCH ×2 (09:18→20:38)
[2021-07-23] MEDS: BENZTROPINE MESYLATE 1 MG TAB PO SCH ×3 (09:18→20:34)
[2021-07-23] MEDS: levETIRAcetam 500 MG TAB PO SCH ×2 (09:18→20:35)
--- NOTE | 2021-07-23 10:07 | Pharmacy Report ---
Pharmacy Glycemic Short Note 2 - Date of Service July 23, 2021 - Glycemic Short BSG Results (Last 24 hours): 07/22/21 07/22/21 07/23/21 17:31 20:35 08:44 POC Glucose 87 124 H 141 H OUTPATIENT ANTIDIABETIC REGIMEN: * Tresiba 30 units SC AM * Novolog 15-25 units SC TIDM * HbA1c: 5.6% (05/23/21) ASSESSMENT: * HERMELINDA is a 55 year old female known to pharmacy glycemic service * Presented to ED yesterday for evaluation of altered mental status and increased lethargy * Patient has history of admission for hepatic encephalopathy * On chronic hydrocortisone 10 mg qAM and 5 mg qPM, to be continued while inpatient * BSG on admission is 87 mg/dL, fasting BSG this AM of 141 mg/dL * Based on prior inpatient data, patient was reasonably well-controlled with 25 units of Lantus, Novolog CF of 25 and carb ratio of 8 * Will start here and reassess tomorrow PLAN FOR INPATIENT GLYCEMIC CONTROL: * Basal insulin * Lantus 25 units SQ daily * Bolus insulin * NovoLog per scale ACHS or Q6hrs while NPO * Goal Range: Low 110 mg/dL - High 140 mg/dL * Correction Factor: 25 mg/dL/unit * Nutritional / Prandial insulin per carb ratio of 1 unit per 8 grams CHO consumed
[2021-07-23] MEDS: ASCORBIC ACID 500 MG TAB PO SCH (10:37)
[2021-07-23] MEDS: CALCIUM CARBONATE 1250MG TAB PO SCH (10:37)
[2021-07-23] MEDS: CHOLECALCIFEROL 5,000 UNITS 125 MCG TAB PO SCH (10:37)
[2021-07-23] MEDS: MULTIVITAMIN TAB PO SCH (10:38)
[2021-07-23] MEDS ORDERED: [UNRECOGNIZED DRUG - OTHER] PO SCH (11:30)
[2021-07-23] MEDS: ARTIFICIAL TEARS OP SCH (20:34)
--- NOTE | 2021-07-23 20:35 | Hospitalist Progress Note ---
Date of Service July 23, 2021 Assessment & Plan (1) Acute alteration in mental status: Plan: Patient admitted for confusion. Ammonia level is above 100. Will treat for hepatic encephalopathy. Patient has been having multiple BMS and will hold off further lactulose this evening. Patient will be on lactulose TID in AM. Will re-eval in AM. If she continues to be doing well on lower frequency lactulose. will consider discharge. Most likely patient has asymptomatic bacteruria. will resume diet once patient is less confused. (2) Cirrhosis: Plan: From [place], causing problem 1. (3) Migraine: Plan: Patient with episodic migraines. Well-controlled. -Continue topiramate -Patient has used Maxalt in the past with success for migraine relief if needed (4) Parkinsonism: Plan: stable (5) Obesity (BMI 30.0-34.9): Plan: recommend liftstyle modifcations. will defer to PCP (6) Dyslipidemia: Plan: resume home meds (7) Diabetes mellitus: Plan: consult glycemic control, Admission and Anticipated Discharge Date Admission Date: July 22, 2021 Subjective 55 yo female reports she is more awake. She feels back to her baseline. She is having diarrhea Review of Systems Review of Systems: All systems reviewed & are unremarkable except as noted in HPI & below Physical Exam Physical Exam: General: patient awake, minimally responsive,bobbing head, does not participate with exam Skin: warm, dry, intact HEENT: NC/AT, PERRL, EOMI, anicteric sclera, conjunctiva without injection, external ear normal to inspection and nontender, nares patent, dry mucus membranes, dentition intact, no oropharyngeal lesions, neck supple, trachea midline, no LAD, no thyromegaly, no JVD Heart: +S1/S2, regular, no m/r/g Lungs: equal air entry bilaterally, no rales/rhonchi/wheezes Abd: +BS, soft, NT/ND, no masses/organomegaly/ascites Ext: warm, 2+ pulses in UE/LE bilaterally, no clubbing/cyanosis or edema Neuro: moving extremities, bobbing head as seen during prior exams Results & Data Results & Data ([facility]) Vital Signs (Past 12 Hours) Vital Signs Temp Pulse Resp BP Pulse Ox 07/23/21 19:15 37.0 C 66 18 137/78 97 07/23/21 15:56 36.8 C 71 18 135/72 95 07/23/21 11:29 37.3 C 75 18 103/62 94 07/23/21 09:38 36.8 C 68 18 144/74 H 96 PG Care Time/CCT Total # of Minutes Spent Total Time Spent with Patient: Total time spent is greater than 50% in coordination of care (as documented) at patient's floor/unit and/or counseling patient: Coding Level of Care Code 95932 Subseq Hosp Care Lvl 2 Diagnoses Acute alteration in mental status R41.82 Cirrhosis K74.60 Migraine G43.909 Parkinsonism G20 Obesity (BMI 30.0-34.9) E66.9 Dyslipidemia E78.5 Diabetes mellitus E11.9 Time Spent (min) 25
[2021-07-23] MEDS ORDERED: TERIPARATIDE INJ SQ SCH (21:00)
[2021-07-24] MEDS: LEVOTHYROXINE SODIUM 50 MCG TABLET PO SCH (05:42)
[2021-07-24] MEDS: INSULIN ASPART PER UNIT SC SCH ×2 (08:40→12:37)
[2021-07-24] MEDS: LACTULOSE SYRUP 30 GM/45 ML UDP PO SCH ×2 (08:41→14:33)
[2021-07-24] MEDS: PRAVASTATIN SOD 20 MG TAB PO SCH (08:42)
[2021-07-24] MEDS: ESCITALOPRAM OXALATE 20 MG TAB PO SCH (08:42)
[2021-07-24] MEDS: rifAXIMin 550 MG TABLET PO SCH (08:42)
[2021-07-24] MEDS: OXcarbazepine 150 MG TABLET PO SCH (08:42)
[2021-07-24] MEDS: PANTOprazole 40 MG TAB PO SCH (08:42)
[2021-07-24] MEDS: FEXOFENADINE 60 MG TAB PO SCH (08:42)
[2021-07-24] MEDS: TOPIRAMATE 100 MG TAB PO SCH (08:42)
[2021-07-24] MEDS: rOPINIRole HCL 0.25 MG TABLET PO SCH (08:42)
[2021-07-24] MEDS: HYDROCORTISONE 10 MG TAB PO SCH (08:42)
[2021-07-24] MEDS: BENZTROPINE MESYLATE 1 MG TAB PO SCH ×2 (08:43→12:37)
[2021-07-24] MEDS: MAGNESIUM OXIDE 400 MG TAB PO SCH (08:43)
[2021-07-24] MEDS: levETIRAcetam 500 MG TAB PO SCH (08:43)
[2021-07-24] MEDS ORDERED: INSULIN GLARGINE SOLOSTAR 100 UNITS/ML 3 ML PEN SQ SCH (09:00)
[2021-07-24 09:06] LABS: Hematocrit (blood only) 31.1 % (37-47); Hemoglobin 10.5 g/dL (12.0-16.0); Mean Corpuscular Hgb Conc 33.8 g/dL (32-36); Mean Corpuscular Volume 100.6 fL (80-100); RDW Coefficient of Variation 13.6 % (11.5-14.5); RDW Standard Deviation 49.4 fL (36.4-46.3); Red Blood Count 3.09 M/uL (4.2-5.4); White Blood Count 3.67 K/uL (4.8-10.8)
[2021-07-24 09:32] LABS: Mean Platelet Volume 10.8 fL (7.4-10.4); Platelet Count 89 K/uL (130-400)
[2021-07-24 09:51] LABS: Albumin Globulin Ratio 1.1 (0.9-2); Albumin Level 2.8 gm/dl (3.4-5.0); BUN Creatinine Ratio 27.5 (10-20); Bilirubin,Total 1.6 mg/dl (0.2-1.0); Calcium 7.7 mg/dl (8.5-10.1); Creatinine Clr Calc Pharmacy 127.5 ml/min; Est GFR (African American) 125.5 ml/min; Est GFR (Non-African American) 108.3 ml/min; Globulin 2.5 gm/dl (2.5-4.0); Potassium 3.7 mmol/L (3.5-5.1); Total Protein 5.3 gm/dl (6.0-8.3)
[2021-07-24] MEDS: ASCORBIC ACID 500 MG TAB PO SCH (10:36)
[2021-07-24] MEDS: CHOLECALCIFEROL 5,000 UNITS 125 MCG TAB PO SCH (10:37)
[2021-07-24] MEDS: MULTIVITAMIN TAB PO SCH (10:37)
[2021-07-24] MEDS: CALCIUM CARBONATE 1250MG TAB PO SCH (10:37)
--- NOTE | 2021-07-24 12:33 | Pharmacy Report ---
Pharmacy Glycemic Short Note 2 - Date of Service July 24, 2021 - Glycemic Short BSG Results (Last 24 hours): 07/23/21 07/23/21 07/24/21 16:50 20:42 08:17 Glucose POC Glucose 132 H 120 H 101 H 07/24/21 07/24/21 08:24 11:55 Glucose 86 POC Glucose 126 H OUTPATIENT ANTIDIABETIC REGIMEN: * Tresiba 30 units SC AM * Novolog 15-25 units SC TIDM * HbA1c: 5.6% (05/23/21) ASSESSMENT: 07/24 * BSGs very well controlled yesterday, ranging 120-144 mg/dL * Received 42 units of insulin (25 units of Lantus and 17 units of Novolog) * Fasting BSG of 101 mg/dL this morning, given downtrend will decrease basal today ~20% 07/23 * HERMELINDA is a 55 year old female known to pharmacy glycemic service * Presented to ED yesterday for evaluation of altered mental status and increased lethargy * Patient has history of admission for hepatic encephalopathy * On chronic hydrocortisone 10 mg qAM and 5 mg qPM, to be continued while inpatient * BSG on admission is 87 mg/dL, fasting BSG this AM of 141 mg/dL * Based on prior inpatient data, patient was reasonably well-controlled with 25 units of Lantus, Novolog CF of 25 and carb ratio of 8 * Will start here and reassess tomorrow PLAN FOR INPATIENT GLYCEMIC CONTROL: * Basal insulin - decrease * Lantus 20 units SQ daily * Bolus insulin - continue * NovoLog per scale ACHS or Q6hrs while NPO * Goal Range: Low 110 mg/dL - High 140 mg/dL * Correction Factor: 25 mg/dL/unit * Nutritional / Prandial insulin per carb ratio of 1 unit per 9 grams CHO consumed
--- NOTE | 2021-07-30 06:22 | Discharge Summary ---
Date of Service July 24, 2021 Admission HPI Per Admitting Provider This is a pleasantly confused 55 yo female with multiple admision from hepatic encephalopathy who recently just had an extensive hospitalization late 2020 into Mar 2021. Patient comes in as last evening she appeared to be more leathergic as per her . She appeared to have been dozing off while watching tv. And patient would not wake up. Patient is not able to provide much history. is also concerned about a possible UTI. Patient though has not had worsening urinary incontinence, nor has she complained of dyruria, urinary urgency. UA was positive and ER provider ordered a dose of antibiotics. Patient has been taking her lactulose, but she has not been having consistent moderate sized BMs during this past week. Principal Diagnosis hepatic envcephalopathy Discharge Exam General: patient awake, alert, oriented Skin: warm, dry, intact HEENT: NC/AT, PERRL, EOMI, anicteric sclera, conjunctiva without injection, external ear normal to inspection and nontender, nares patent, dry mucus membranes, dentition intact, no oropharyngeal lesions, neck supple, trachea midline, no LAD, no thyromegaly, no JVD Heart: +S1/S2, regular, no m/r/g Lungs: equal air entry bilaterally, no rales/rhonchi/wheezes Abd: +BS, soft, NT/ND, no masses/organomegaly/ascites Ext: warm, 2+ pulses in UE/LE bilaterally, no clubbing/cyanosis or edema Neuro: moving extremities, bobbing head as seen during prior exams Discharge Data Allergies Allergy/AdvReac Type Severity Reaction Status Date / Time metoclopramide Allergy Severe SEIZURES Verified 07/22/21 10:07 metronidazole Allergy Severe SEIZURE Verified 07/22/21 10:07 tramadol Allergy Severe SEIZURES Verified 07/22/21 10:07 amoxicillin Allergy Intermediate SEE COMMENT Verified 07/22/21 10:07 baclofen Allergy Intermediate RASH Verified 07/22/21 10:07 butalbital Allergy Intermediate HIVES Verified 07/22/21 10:07 dicyclomine Allergy Intermediate HIVES Verified 07/22/21 10:07 nitrofurantoin Allergy Intermediate HIVES/RASH/SEVERE Verified 07/22/21 10:07 [From Macrobid] ITCHING pollen extracts Allergy Intermediate Hives Verified 07/22/21 10:07 Sulfa (Sulfonamide Allergy Intermediate CAUSES Verified 07/22/21 10:07 Antibiotics) BLACK STOOLS Tetracyclines Allergy Intermediate DOXYCYCLINE Verified 07/22/21 10:07 -HIVES adhesive Allergy Mild RASH, Verified 07/22/21 10:07 DUODERM=RED,ITCHY celecoxib Allergy Mild HIVES Verified 07/22/21 10:07 sulindac Allergy Mild ALLERGY Verified 07/22/21 10:07 LISTED "CLONDORAL"--HIVES Cephalosporins AdvReac Severe TURNS Verified 07/22/21 10:07 STOOL VERY DARK levofloxacin [From Levaquin] AdvReac Severe Vomiting Verified 07/22/21 10:07 paroxetine [From Paxil] AdvReac Severe Vomiting Verified 07/22/21 10:07 dextromethorphan AdvReac Mild Vomiting Verified 07/22/21 10:07 Consultations 07/22/21 11:11 ED Decision to Admit Stat Hospital Course (1) Acute alteration in mental status: Patient admitted for confusion. Ammonia level is above 100. Will treat for hepatic encephalopathy. Patient has been having multiple BMS and will hold off further lactulose this evening. Patient improved on lactulose TID in AM. Titrated down, patient improved. D/W , agreeable to discharge. Most likely patient has asymptomatic bacteruria. (2) Cirrhosis: From [place], causing problem 1. (3) Migraine: Patient with episodic migraines. Well-controlled. -Continue topiramate -Patient has used Maxalt in the past with success for migraine relief if needed (4) Parkinsonism: stable (5) Obesity (BMI 30.0-34.9): recommend liftstyle modifcations. will defer to PCP (6) Dyslipidemia: resume home meds (7) Diabetes mellitus: consult glycemic control, Total Time Total Time Spent Total Time Spent (In Minutes): 35 Discharge Plan Discharge Items Patient Disposition: Home - Self-Care Reason For Visit: HEPATIC ENCEPHALOPATHY Discharge Diagnosis: hepatic encephalopathy Activity: Resume your previous activity Non-emergency contact: Primary Care Provider Call non-emergency contact if: you have any medication questions Follow-up/Referrals: PCP,NO [Physician] - Diet: Carb Consistent or DM2 Addtl Attending Provider Instructions: You have been hospitalized for an acute medical problem. During your stay at [facility], we have made an effort to correct the problem that brought you to the hospital while keeping you as comfortable as possible. Medications were used to bring your condition under control and your discharge instructions will include directions for any medications you should take after leaving the hospital. Please make sure you see your Primary Care Provider as part of your follow up plan. Pending Studies at Discharge: No Stand-Alone Forms: My [facility] IXI-Play, Smoking Cessation Medications and DC Order Prescriptions: Continued topiramate 100 mg tablet 100 mg PO BID Qty: 60 RF: 5 albuterol sulfate 90 mcg/actuation HFA aerosol inhaler 2 puff inhalation Q4H PRN (Reason: shortness of breath) Qty: 1 RF: 3 levothyroxine [Euthyrox] 50 mcg tablet 50 mcg PO QAM Qty: 30 RF: 2 omeprazole 40 mg capsule,delayed release(DR/EC) 40 mg PO QAM Qty: 90 RF: 1 ropinirole 0.25 mg tablet 0.25 mg PO BID 90 Days Qty: 180 RF: 1 (DME) pen needle, diabetic [BD Ultra-Fine [place] Pen Needle] 32 gauge x 5/32" needle See Rx Instructions .Route Qty: 400 RF: 3 insulin aspart U-100 [Novolog Flexpen U-100 Insulin] 100 unit/mL (3 mL) insulin pen 15 - 25 unit SQ TID MDD 60 units Qty: 30 RF: 5 Tresiba FlexTouch U-100 100 unit/mL (3 mL) insulin pen 30 unit subcut QAM Qty: 15 RF: 1 ipratropium-albuterol 0.5 mg-3 mg(2.5 mg base)/3 mL solution for nebulization 3 ml INH QID PRN (Reason: wheezing) Qty: 90 RF: 0 teriparatide 20 mcg/dose (620mcg/2.48mL) pen injector 20 mcg subcut PM Qty: 7.44 RF: 0 benztropine 1 mg tablet 1 mg PO TID 30 Days Qty: 90 RF: 5 levetiracetam 750 mg tablet 1,500 mg PO BID 30 Days Qty: 120 RF: 5 cholecalciferol (vitamin D3) [Vitamin D3] 25 mcg (1,000 unit) capsule 5,000 unit PO QDL RF: 0 promethazine 25 mg tablet 25 mg PO Q8H PRN (Reason: nausea and vomiting) Qty: 10 RF: 0 ascorbate calcium (vitamin C) 500 mg tablet 500 mg PO QDL RF: 0 vitamin E (dl, acetate) 180 mg (400 unit) capsule 180 mg PO Q OTHER DAY RF: 0 (DME) OneTouch Verio test strips Strip See Rx Instructions .Route Qty: 50 RF: 5 epinephrine [EpiPen 2-Garret] 0.3 mg/0.3 mL auto-injector 0.3 mg IM Q10M PRN (Reason: Anaphylaxis) RF: 0 lecithin 1,200 mg capsule 1,200 mg PO QDL RF: 0 cranberry 400 mg capsule 400 mg PO BIDM RF: 0 Emgality Pen 120 mg/mL pen injector 240 mg subcut ONCE 30 Days Qty: 2 RF: 0 multivitamin [Multiple Vitamins] Tablet 1 tab PO QDL RF: 0 zinc 50 mg Tablet 50 mg PO QDL RF: 0 vitamin A 8,000 unit Capsule 8,000 unit PO QDL RF: 0 vitamin B complex Tablet 1 tab PO QDL RF: 0 Probiotic 3 billion cell Capsule 1 mmu cells PO QDL RF: 0 fexofenadine 60 mg Tablet 60 mg PO QAM RF: 0 hydrocortisone 10 mg tablet See Rx Instructions .ROUTE .COMPLEX RF: 0 oxcarbazepine 300 mg tablet See Rx Instructions .ROUTE .COMPLEX RF: 0 calcium carbonate 500 mg calcium (1,250 mg) Tablet 500 mg PO QDL RF: 0 Blue-Emu Cream 1 applic topical HS RF: 0 Cognitive Formula 1 tab PO QDL RF: 0 pravastatin 20 mg tablet 20 mg PO QAM RF: 0 escitalopram oxalate 20 mg tablet 20 mg PO QAM RF: 0 melatonin 5 mg tablet 10 mg PO HS Qty: 1 RF: 0 magnesium oxide 400 mg (241.3 mg magnesium) tablet 400 mg PO BID Qty: 0 RF: 0 acetaminophen [Tylenol Extra Strength] 500 mg Tablet 1,000 mg PO HS Qty: 0 RF: 0 Refresh Optive Advanced 0.5-1-0.5 % drops 2 drops OP HS Qty: 0 RF: 0 acetaminophen [Tylenol Extra Strength] 500 mg tablet 500 mg PO BID PRN (Reason: Pain) RF: 0 diclofenac sodium [Voltaren Arthritis Pain] 1 % gel 4 g EXT QID PRN (Reason: Pain) RF: 0 No Action lactulose 20 gram/30 mL solution 45 ml PO BID Qty: 2880 RF: 1 Xifaxan 550 mg tablet 550 mg PO BID Qty: 60 RF: 5 Discharge Orders: Discharge Order (Routine); Ordered 07/24/21 Ordered By: aMrvel Suarez Admission Data Admit Date/Time: 07/22/21 11:39 Attending Provider: Marvel Suarez Admit Provider: Marvel Suarez Primary Care Provider: Geri Mcgraw Other Interventions: Discharge Summary Assessment (RN) Last Done: 07/24/21 15:10 Coding Level of Care Code D/C DAY MANAGEMENT >30 MINS Diagnoses Acute alteration in mental status R41.82 Cirrhosis K74.60 Migraine G43.909 Parkinsonism G20 Obesity (BMI 30.0-34.9) E66.9 Dyslipidemia E78.5 Diabetes mellitus E11.9
--- NOTE | 2021-08-06 06:52 | Coding Query ---
CODING QUERY To promote full compliance with coding requirements relating to patient care, provider participation is requested in all cases of manufacturing electrician uncertainty. Please assist us with the question(s) below: Coding Question(s): Dr Suarez, Please review the patient's hematology lab values and past medical history of pancytopenia and provide a current diagnosis for their significance during this encounter, if any. Physician's Response(s): Patient has pancytopenia. Monitored blood work during admission, no intervention required. Thank you for your time, KELSIE Almaraz, [facility]
== END 2021-07-24 15:54 | disposition home or self-care (01) | DRG 442 ==
LOC: ED 08:29 → 3N 11:39

== ENCOUNTER 2021-08-01 21:07 | Observation (INO) ==
--- NOTE | 2021-08-01 21:46 | Emergency Department Note ---
Impression & Plan Acute hepatic encephalopathy, Hyperammonemia, Acute confusion, Electrolyte abnormality ED Provider Note NAME: CHRISTO SAN AGE: 55 SEX: F : 1965 ARRIVES VIA: Walk-In INFORMANT: Patient, ED PROVIDER(S): Alexis Jones MD Chief Complaint: Confusion HPI: Patient presents from home with at bedside due to concern for intermittent alteration in consciousness over the last 48 hours. states that this typically occurs when the patient has elevated ammonia and hepatic encephalopathy. No recent falls or trauma. The patient does have a persistent central as well as extremity tremor which is been ongoing several months. The patient reportedly took 2 doses of lactulose today with 2 good bowel movements. The patient has had cough that is nonproductive. No smoking or drinking. Patient denies any chest pain shortness of breath but has been had associated chills. No abdominal pain nausea or vomiting. No recent surgeries procedures. is also concerned about the possibility of dehydration. The patient denies any dysuria or hematuria. The patient did drink 8 ounces of water prior to arrival. ROS: See HPI for pertinent positives and negatives. A total of 10 systems were reviewed and otherwise negative. Past medical history: See below Surgical history: See below Social history: See below Physical Exam: GENERAL: Chronically ill in appearance, wearing a mask. Central tremor noted. EYE EXAM: Normal conjunctiva. PERRL, no anisocoria and EOM's grossly intact w/o pain. NECK: Supple, no nuchal rigidity, no adenopathy, non-tender. No signs of meningismus. Chest: Port in right chest. LUNGS: Clear to auscultation. Normal chest wall mechanics. HEART: NSR, no MRG. ABDOMEN: Abdomen soft, non-tender, normo-active bowel sounds, no masses, no rebound or guarding. BACK: No CVA TTP. SKIN: No rashes and no bruising. UPPER EXTREMITIES: Upper extremities are grossly normal. Upper extremity tremor bilaterally. LOWER EXTREMITIES: Grossly normal, no edema. Negative Homans' sign bilaterally. NEURO EXAM: Awake and alert and follows commands, cranial nerves II-XII grossly intact, slow deliberate speech, moves all 4 extremities on command w/o issue. Good finger to nose, no drift, no sensory deficits. Differential diagnoses: Infection, dehydration, metabolic abnormality, hypo/hyperglycemia, electrolyte disturbance, anemia, hypoxia, cardiac sources, intracerebral event, toxicologic, neurologic, as well as other pathologies. Course: Patient was seen and evaluated the bedside. Full history physical exam was performed. EKG interpreted by me Normal sinus rhythm, rate of 69, prolonged QT. Imaging Studies: 1 view chest x-ray with no obvious pleural effusion, pneumothorax or pneumonia Cardiac monitoring: An order was placed for continuous cardiac monitoring. The monitor shows a rate of 72 with sinus rhythm. MDM: Patient presented with waxing and waning confusion concerning for hepatic encephalopathy per patient and family member at bedside. Blood work was obtained along with urinalysis ammonia level. Patient is mild leukopenia and anemia with thrombocytopenia. The patient's kidney function is fairly unremarkable albeit with prerenal azotemia. The patient was ordered IV fluids. Mild hypocalcemia and hypomagnesemia which were ordered by mouth for repleted. Ammonia is elevated at 91. Lactulose was ordered. Alcohol negative. COVID- negative. I did speak wtih the on-call hospitalist Dr. Beatty and the patient was admitted to the medicine service. Chest x-ray appears unchanged from comparison. Past Med/Surg History Medical History Altered mental status Depression Frequent falls See care alert special indicator. H/O osteoporotic pathological fracture Hyperammonemia Migraine Myoclonic seizure "FREQUENT MYOCLONIC SEIZURES" FOLLOWS WITH DR. YANG Nonalcoholic fatty liver disease Pancytopenia Chronic. Follows with cancer center. Platelets have been > 100 since 10/2019, WNL on 05/23 labs. H/H stable in 8-10 range. Parkinsonism Sleepiness Spleen enlargement UTI (urinary tract infection) Surgical History Femur fracture, right SPIRAL FRACTURE REPAIRED (HARDWARE REPAIRED) History of ankle surgery RT/LEFT History of appendectomy History of cholecystectomy History of colonoscopy History of esophagogastroduodenoscopy (EGD) History of kyphoplasty History of open reduction and internal fixation (ORIF) procedure RT HIP History of surgery (~06/02/20) screw/plate removal from left humerus History of surgery on arm LEFT (HARDWARE INTACT) History of tooth extraction History of vascular access device right A port Hx of carpal tunnel repair RT/LEFT Hx of cataract extraction RT/LEFT S/P laminectomy lumbar spine S/P nasal surgery nasal bone fracture repair S/P [facility] (1997) Family History Other Adopted No pertinent family history Social History Smoking Status: Never smoker Tobacco Type: Cigarettes Second Hand Exposure: No; Hx Alcohol Use: No Hx Substance Use: No Preferred Language: Cuban Communication Ability: Effective Visual Impairment: No Limitations Associate [employer] Required: No Beliefs That Will Affect Care: None marital status: Current Living Situation: Spouse Current Living Situation Comment: Lives with current occupational status: unemployed and disabled How many Children do You have: 0 Feels Safe at Home: Yes Seatbelt Use: always Assistive Devices: Walker and Wheelchair Allergies Allergies Allergy/AdvReac Type Severity Reaction Status Date / Time metoclopramide Allergy Severe SEIZURES Verified 08/01/21 22:44 metronidazole Allergy Severe SEIZURE Verified 08/01/21 22:44 tramadol Allergy Severe SEIZURES Verified 08/01/21 22:44 amoxicillin Allergy Intermediate SEE COMMENT Verified 08/01/21 22:44 baclofen Allergy Intermediate RASH Verified 08/01/21 22:44 butalbital Allergy Intermediate HIVES Verified 08/01/21 22:44 dicyclomine Allergy Intermediate HIVES Verified 08/01/21 22:44 nitrofurantoin Allergy Intermediate HIVES/RASH/SEVERE Verified 08/01/21 22:44 [From Macrobid] ITCHING pollen extracts Allergy Intermediate Hives Verified 08/01/21 22:44 Sulfa (Sulfonamide Allergy Intermediate CAUSES Verified 08/01/21 22:44 Antibiotics) BLACK STOOLS Tetracyclines Allergy Intermediate DOXYCYCLINE Verified 08/01/21 22:44 -HIVES adhesive Allergy Mild RASH, Verified 08/01/21 22:44 DUODERM=RED,ITCHY celecoxib Allergy Mild HIVES Verified 08/01/21 22:44 sulindac Allergy Mild ALLERGY Verified 08/01/21 22:44 LISTED "CLONDORAL"--HIVES Cephalosporins AdvReac Severe TURNS Verified 08/01/21 22:44 STOOL VERY DARK levofloxacin [From Levaquin] AdvReac Severe Vomiting Verified 08/01/21 22:44 paroxetine [From Paxil] AdvReac Severe Vomiting Verified 08/01/21 22:44 dextromethorphan AdvReac Mild Vomiting Verified 08/01/21 22:44 Home Meds Home Medications Medication Instructions Recorded Confirmed multivitamin (Multiple Vitamins) 1 tab PO QDL 12/26/17 08/01/21 lactobacillus combination no.4 3 1 mmu cells PO QDL 09/20/18 08/01/21 billion cell capsule (Probiotic) vitamin A 2,400 mcg capsule 8,000 unit PO QDL 09/20/18 08/01/21 vitamin B complex 1 tab PO QDL 09/20/18 08/01/21 zinc 50 mg tablet 50 mg PO QDL 02/09/19 08/01/21 epinephrine 0.3 mg/0.3 mL 0.3 mg IM Q10M PRN 04/02/19 08/01/21 injection, auto-injector (EpiPen 2-Garret) lecithin 1,200 mg capsule 1,200 mg PO QDL 04/29/19 08/01/21 fexofenadine 60 mg tablet 60 mg PO QAM 04/12/20 08/01/21 cranberry 400 mg capsule 400 mg PO BIDM 06/08/20 08/01/21 ascorbate calcium (vitamin C) 500 500 mg PO QDL 11/16/20 08/01/21 mg tablet vitamin E (dl, acetate) 180 mg 180 mg PO Q OTHER DAY cap 11/16/20 08/01/21 (400 unit) capsule cholecalciferol (vitamin D3) 25 5,000 unit PO QDL cap 11/30/20 08/01/21 mcg (1,000 unit) capsule (Vitamin D3) hydrocortisone 10 mg tablet See Rx Instructions .ROUTE 11/30/20 08/01/21 .COMPLEX tab oxcarbazepine 300 mg tablet See Rx Instructions .ROUTE 11/30/20 08/01/21 .COMPLEX tab pravastatin 20 mg tablet 20 mg PO QAM 12/05/20 08/01/21 escitalopram oxalate 20 mg tablet 20 mg PO QAM 12/29/20 08/01/21 acetaminophen 500 mg tablet 500 mg PO BID PRN 06/22/21 08/01/21 (Tylenol Extra Strength) diclofenac sodium 1 % topical gel 4 g EXT QID PRN 06/22/21 08/01/21 (Voltaren Arthritis Pain) Blue-Emu Cream 1 applic TOPICAL HS 07/22/21 08/01/21 Cognitive Formula 1 tab PO QDL 07/22/21 08/01/21 calcium carbonate 500 mg calcium 500 mg PO QDL 07/22/21 08/01/21 (1,250 mg) tablet Previous Rx's Medication Instructions Recorded topiramate 100 mg tablet 100 mg PO BID #60 tab 05/17/20 albuterol sulfate 90 mcg/actuation 2 puff INHALATION Q4H PRN #1 05/31/20 aerosol inhaler inhaler promethazine 25 mg tablet 25 mg PO Q8H PRN #10 tab 10/11/20 levetiracetam 750 mg tablet 1,500 mg PO BID 30 Days #120 tab 10/30/20 levothyroxine 50 mcg tablet 50 mcg PO QAM #30 tab 11/10/20 (Euthyrox) omeprazole 40 mg capsule,delayed 40 mg PO QAM #90 cap 11/15/20 release magnesium oxide 400 mg (241.3 mg 400 mg PO BID #0 tab 01/02/21 magnesium) tablet melatonin 5 mg tablet 10 mg PO HS #1 tab 01/02/21 ropinirole 0.25 mg tablet 0.25 mg PO BID 90 Days #180 tab 01/10/21 acetaminophen 500 mg tablet 1,000 mg PO HS #0 tab 04/20/21 (Tylenol Extra Strength) amrtxumfiscshgnmuhbbzp-bswoehts-fweqwbrg 2 drops OP HS #0 ml 04/20/21 80 0.5 %-1 %-0.5 % eye drops (Refresh Optive Advanced) pen needle, diabetic 32 gauge x #400 ea 06/26/21 5/32" (BD Ultra-Fine [place] Pen Needle) insulin aspart U-100 100 unit/mL 15 - 25 unit SQ TID #30 ml MDD 60 07/07/21 (3 mL) subcutaneous pen (Novolog units Flexpen U-100 Insulin aspart) insulin degludec 100 unit/mL (3 30 unit SUBCUT QAM #15 ml 07/07/21 mL) subcutaneous pen (Tresiba FlexTouch U-100 insulin) blood sugar diagnostic (OneTouch #50 ea 07/17/21 Verio test strips) galcanezumab-gnlm 120 mg/mL 240 mg SUBCUT ONCE 30 Days #2 ml 07/19/21 subcutaneous pen injector (Emgality Pen) ipratropium 0.5 mg-albuterol 3 mg 3 ml INH QID PRN #90 ml 07/19/21 (2.5 mg base)/3 mL nebulization soln benztropine 1 mg tablet 1 mg PO TID 30 Days #90 tab 07/20/21 teriparatide 20 mcg/dose (620 20 mcg SUBCUT PM #7.44 ml 07/20/21 mcg/2.48 mL) subcutaneous pen injector lactulose 20 gram/30 mL oral 45 ml PO BID #2880 ml 07/26/21 solution rifaximin 550 mg tablet (Xifaxan) 550 mg PO BID #60 tab 07/26/21 Results & Data (ED) Vital Signs Vital Signs - 24 hr 08/01/21 21:12 08/01/21 22:16 Temperature 36.5 C Temperature Source Temporal Artery Scan Pulse Rate 69 Respiratory Rate 18 Respiratory Effort / Characteristics Non-Labored Respiratory Depth Normal Respiratory Pattern Regular Blood Pressure 151/71 H Blood Pressure Mean 97 Blood Pressure Position Sitting Pulse Oximetry 97 98 Oxygen Delivery Method Room Air Room Air Sepsis Recent Fever Within 48 Hours No Sepsis New/Unexplained Change in Mental Status Yes Sepsis Action Taken by Nursing No Action Required Home Medications Current Medication List: was personally reviewed by me Laboratory Data Attestation: I reviewed the patient's lab results. Result diagrams: 08/01/21 21:43 08/01/21 21:43 Lab Results 08/01/21 08/01/21 08/01/21 Range/Units 21:43 21:43 21:43 WBC 3.85 L (4.8-10.8) K/uL RBC 3.27 L (4.2-5.4) M/uL Hgb 11.1 L (12.0-16.0) g/dL Hct 32.6 L (37-47) % MCV 99.7 (80-100) fL MCH 33.9 (25-34) pg MCHC 34.0 (32-36) g/dL RDW Std Deviation 52.4 H (36.4-46.3) fL RDW Coeff of Irina 14.5 (11.5-14.5) % Plt Count 101 L (130-400) K/uL MPV 10.5 H (7.4-10.4) fL Immature Gran % (Auto) 0.3 % Neut % (Auto) 57.1 % Lymph % (Auto) 30.6 % Mason % (Auto) 8.6 % Eos % (Auto) 2.6 % Baso % (Auto) 0.8 % Neut # (Auto) 2.20 (1.4-6.5) K/uL Lymph # (Auto) 1.18 L (1.2-3.4) K/uL Mason # (Auto) 0.33 (0.11-0.59) K/uL Eos # (Auto) 0.10 (0-0.5) K/uL Baso # (Auto) 0.03 (0-0.2) K/uL Immature Gran # (Auto) 0.01 (0.00-0.02) K/uL PT 13.7 H (9.0-12.0) Seconds INR 1.3 H (0.9-1.1) APTT 40.1 H (21.0-31.0) Seconds PTT Ratio 1.5 Sodium 144 (136-145) mmol/L Potassium 3.8 (3.5-5.1) mmol/L Chloride 118 H (98-107) mmol/L Carbon Dioxide 22 (21-32) mmol/L Anion Gap 4 (3-11) BUN 15 (6-23) mg/dl Creatinine 0.56 L (0.6-1.2) mg/dl Est Cr Clr Drug Dosing Not Reportable Est GFR ( Amer) 121.7 ml/min Est GFR (Non-Af Amer) 105.0 ml/min BUN/Creatinine Ratio 26.8 H (10-20) Glucose 109 H (70-99(Fasting)) mg/dl POC Glucose (70-99) mg/dl Calcium 8.3 L (8.5-10.1) mg/dl Magnesium 1.6 L (1.7-2.4) mg/dl Total Bilirubin 1.2 H (0.2-1.0) mg/dl AST 34 (13-39) U/L ALT 32 (7-52) U/L Alkaline Phosphatase 143 H (34-104) U/L Ammonia (18-72) umol/L Total Protein 5.6 L (6.0-8.3) gm/dl Albumin 3.0 L (3.4-5.0) gm/dl Globulin 2.6 (2.5-4.0) gm/dl Albumin/Globulin Ratio 1.2 (0.9-2) TSH (0.300-4.500) uIu/ml Ethyl Alcohol mg/dL (<10.0) mg/dl SARS-CoV-2, RNA, NAAT (NEGATIVE) 08/01/21 08/01/21 08/01/21 Range/Units 21:43 21:52 22:03 WBC (4.8-10.8) K/uL RBC (4.2-5.4) M/uL Hgb (12.0-16.0) g/dL Hct (37-47) % MCV (80-100) fL MCH (25-34) pg MCHC (32-36) g/dL RDW Std Deviation (36.4-46.3) fL RDW Coeff of Irina (11.5-14.5) % Plt Count (130-400) K/uL MPV (7.4-10.4) fL Immature Gran % (Auto) % Neut % (Auto) % Lymph % (Auto) % Mason % (Auto) % Eos % (Auto) % Baso % (Auto) % Neut # (Auto) (1.4-6.5) K/uL Lymph # (Auto) (1.2-3.4) K/uL Mason # (Auto) (0.11-0.59) K/uL Eos # (Auto) (0-0.5) K/uL Baso # (Auto) (0-0.2) K/uL Immature Gran # (Auto) (0.00-0.02) K/uL PT (9.0-12.0) Seconds INR (0.9-1.1) APTT (21.0-31.0) Seconds PTT Ratio Sodium (136-145) mmol/L Potassium (3.5-5.1) mmol/L Chloride (98-107) mmol/L Carbon Dioxide (21-32) mmol/L Anion Gap (3-11) BUN (6-23) mg/dl Creatinine (0.6-1.2) mg/dl Est Cr Clr Drug Dosing Est GFR ( Amer) ml/min Est GFR (Non-Af Amer) ml/min BUN/Creatinine Ratio (10-20) Glucose (70-99(Fasting)) mg/dl POC Glucose 105 H (70-99) mg/dl Calcium (8.5-10.1) mg/dl Magnesium (1.7-2.4) mg/dl Total Bilirubin (0.2-1.0) mg/dl AST (13-39) U/L ALT (7-52) U/L Alkaline Phosphatase (34-104) U/L Ammonia (18-72) umol/L Total Protein (6.0-8.3) gm/dl Albumin (3.4-5.0) gm/dl Globulin (2.5-4.0) gm/dl Albumin/Globulin Ratio (0.9-2) TSH 1.058 (0.300-4.500) uIu/ml Ethyl Alcohol mg/dL (<10.0) mg/dl SARS-CoV-2, RNA, NAAT NEGATIVE (NEGATIVE) 08/01/21 08/01/21 Range/Units 22:56 22:56 WBC (4.8-10.8) K/uL RBC (4.2-5.4) M/uL Hgb (12.0-16.0) g/dL Hct (37-47) % MCV (80-100) fL MCH (25-34) pg MCHC (32-36) g/dL RDW Std Deviation (36.4-46.3) fL RDW Coeff of Irina (11.5-14.5) % Plt Count (130-400) K/uL MPV (7.4-10.4) fL Immature Gran % (Auto) % Neut % (Auto) % Lymph % (Auto) % Mason % (Auto) % Eos % (Auto) % Baso % (Auto) % Neut # (Auto) (1.4-6.5) K/uL Lymph # (Auto) (1.2-3.4) K/uL Mason # (Auto) (0.11-0.59) K/uL Eos # (Auto) (0-0.5) K/uL Baso # (Auto) (0-0.2) K/uL Immature Gran # (Auto) (0.00-0.02) K/uL PT (9.0-12.0) Seconds INR (0.9-1.1) APTT (21.0-31.0) Seconds PTT Ratio Sodium (136-145) mmol/L Potassium (3.5-5.1) mmol/L Chloride (98-107) mmol/L Carbon Dioxide (21-32) mmol/L Anion Gap (3-11) BUN (6-23) mg/dl Creatinine (0.6-1.2) mg/dl Est Cr Clr Drug Dosing Est GFR ( Amer) ml/min Est GFR (Non-Af Amer) ml/min BUN/Creatinine Ratio (10-20) Glucose (70-99(Fasting)) mg/dl POC Glucose (70-99) mg/dl Calcium (8.5-10.1) mg/dl Magnesium (1.7-2.4) mg/dl Total Bilirubin (0.2-1.0) mg/dl AST (13-39) U/L ALT (7-52) U/L Alkaline Phosphatase (34-104) U/L Ammonia 91.0 H (18-72) umol/L Total Protein (6.0-8.3) gm/dl Albumin (3.4-5.0) gm/dl Globulin (2.5-4.0) gm/dl Albumin/Globulin Ratio (0.9-2) TSH (0.300-4.500) uIu/ml Ethyl Alcohol mg/dL < 10.0 (<10.0) mg/dl SARS-CoV-2, RNA, NAAT (NEGATIVE) Administered Medications Discontinued Medications Calcium Carbonate (Calcium Carbonate 500 Mg Chewable Tab) 1,500 mg PO NOW STA Stop: 08/01/21 22:51 Last Admin: 08/01/21 23:02 Dose: 1,500 mg Documented by: [id number] Sodium Chloride (Nss) 500 mls @ 999 mls/hr IV .Q31M ONE Stop: 08/01/21 22:38 Last Infusion: 08/01/21 23:02 Dose: 999 mls/hr Documented by: [id number] Admin: 08/01/21 22:27 Dose: 999 mls/hr Documented by: [id number] Lactulose (Lactulose Syrup 20 Gm/30 Ml Udc) 30 gm PO NOW STA Stop: 08/01/21 23:31 Last Admin: 08/01/21 23:42 Dose: 30 gm Documented by: [id number] Magnesium Oxide (Magnesium Oxide 400 Mg Tab) 800 mg PO NOW STA Stop: 08/01/21 22:51 Last Admin: 08/01/21 23:02 Dose: 800 mg Documented by: [id number] Discharge Plan Visit Data Chief Complaint: Unresponsive Stated Complaint: HAS A LIVER CONDITION, UNRESPONSIVE ED Provider: Alexis Jones Discharge Problem: Acute hepatic encephalopathy, Hyperammonemia, Acute confusion, Electrolyte abnormality Patient Disposition: Admitted As Inpatient Forms Stand Alone Forms: [facility] Prescriptions Prescriptions: No Action topiramate 100 mg tablet 100 mg PO BID Qty: 60 RF: 5 albuterol sulfate 90 mcg/actuation HFA aerosol inhaler 2 puff inhalation Q4H PRN (Reason: shortness of breath) Qty: 1 RF: 3 levothyroxine [Euthyrox] 50 mcg tablet 50 mcg PO QAM Qty: 30 RF: 2 omeprazole 40 mg capsule,delayed release(DR/EC) 40 mg PO QAM Qty: 90 RF: 1 ropinirole 0.25 mg tablet 0.25 mg PO BID 90 Days Qty: 180 RF: 1 (DME) pen needle, diabetic [BD Ultra-Fine [place] Pen Needle] 32 gauge x 5/32" needle See Rx Instructions .Route Qty: 400 RF: 3 insulin aspart U-100 [Novolog Flexpen U-100 Insulin] 100 unit/mL (3 mL) insulin pen 15 - 25 unit SQ TID MDD 60 units Qty: 30 RF: 5 Tresiba FlexTouch U-100 100 unit/mL (3 mL) insulin pen 30 unit subcut QAM Qty: 15 RF: 1 ipratropium-albuterol 0.5 mg-3 mg(2.5 mg base)/3 mL solution for nebulization 3 ml INH QID PRN (Reason: wheezing) Qty: 90 RF: 0 teriparatide 20 mcg/dose (620mcg/2.48mL) pen injector 20 mcg subcut PM Qty: 7.44 RF: 0 benztropine 1 mg tablet 1 mg PO TID 30 Days Qty: 90 RF: 5 lactulose 20 gram/30 mL solution 45 ml PO BID Qty: 2880 RF: 1 Xifaxan 550 mg tablet 550 mg PO BID Qty: 60 RF: 5 levetiracetam 750 mg tablet 1,500 mg PO BID 30 Days Qty: 120 RF: 5 cholecalciferol (vitamin D3) [Vitamin D3] 25 mcg (1,000 unit) capsule 5,000 unit PO QDL RF: 0 promethazine 25 mg tablet 25 mg PO Q8H PRN (Reason: nausea and vomiting) Qty: 10 RF: 0 ascorbate calcium (vitamin C) 500 mg tablet 500 mg PO QDL RF: 0 vitamin E (dl, acetate) 180 mg (400 unit) capsule 180 mg PO Q OTHER DAY RF: 0 (DME) OneTouch Verio test strips Strip See Rx Instructions .Route Qty: 50 RF: 5 epinephrine [EpiPen 2-Garret] 0.3 mg/0.3 mL auto-injector 0.3 mg IM Q10M PRN (Reason: Anaphylaxis) RF: 0 lecithin 1,200 mg capsule 1,200 mg PO QDL RF: 0 cranberry 400 mg capsule 400 mg PO BIDM RF: 0 Emgality Pen 120 mg/mL pen injector 240 mg subcut ONCE 30 Days Qty: 2 RF: 0 multivitamin [Multiple Vitamins] Tablet 1 tab PO QDL RF: 0 zinc 50 mg Tablet 50 mg PO QDL RF: 0 vitamin A 8,000 unit Capsule 8,000 unit PO QDL RF: 0 vitamin B complex Tablet 1 tab PO QDL RF: 0 Probiotic 3 billion cell Capsule 1 mmu cells PO QDL RF: 0 fexofenadine 60 mg Tablet 60 mg PO QAM RF: 0 hydrocortisone 10 mg tablet See Rx Instructions .ROUTE .COMPLEX RF: 0 oxcarbazepine 300 mg tablet See Rx Instructions .ROUTE .COMPLEX RF: 0 calcium carbonate 500 mg calcium (1,250 mg) Tablet 500 mg PO QDL RF: 0 Blue-Emu Cream 1 applic topical HS RF: 0 Cognitive Formula 1 tab PO QDL RF: 0 pravastatin 20 mg tablet 20 mg PO QAM RF: 0 escitalopram oxalate 20 mg tablet 20 mg PO QAM RF: 0 melatonin 5 mg tablet 10 mg PO HS Qty: 1 RF: 0 magnesium oxide 400 mg (241.3 mg magnesium) tablet 400 mg PO BID Qty: 0 RF: 0 acetaminophen [Tylenol Extra Strength] 500 mg Tablet 1,000 mg PO HS Qty: 0 RF: 0 Refresh Optive Advanced 0.5-1-0.5 % drops 2 drops OP HS Qty: 0 RF: 0 acetaminophen [Tylenol Extra Strength] 500 mg tablet 500 mg PO BID PRN (Reason: Pain) RF: 0 diclofenac sodium [Voltaren Arthritis Pain] 1 % gel 4 g EXT QID PRN (Reason: Pain) RF: 0 Referrals Referrals: Mo Griggs MD [Primary Care Provider] -
[2021-08-01 21:55] LABS: Basophils # (auto) 0.03 K/uL (0-0.2); Basophils % (auto) 0.8 %; Eosinophils % (auto) 2.6 %; Hematocrit (blood only) 32.6 % (37-47); Hemoglobin 11.1 g/dL (12.0-16.0); Immature Granulocytes # (auto) 0.01 K/uL (0.00-0.02); Immature Granulocytes % (auto) 0.3 %; Lymphocytes # (auto) 1.18 K/uL (1.2-3.4); Lymphocytes % (auto) 30.6 %; Mean Corpuscular Hemoglobin 33.9 pg (25-34); Mean Corpuscular Volume 99.7 fL (80-100); Mean Platelet Volume 10.5 fL (7.4-10.4); Monocytes # (auto) 0.33 K/uL (0.11-0.59); Monocytes % (auto) 8.6 %; Neutrophils % (auto) 57.1 %; Platelet Count 101 K/uL (130-400); RDW Coefficient of Variation 14.5 % (11.5-14.5); RDW Standard Deviation 52.4 fL (36.4-46.3); Red Blood Count 3.27 M/uL (4.2-5.4); White Blood Count 3.85 K/uL (4.8-10.8)
[2021-08-01 22:06] LABS: INR 1.3 (0.9-1.1); Partial Thromboplastin Ratio 1.5; Partial Thromboplastin Time 40.1 Seconds (21.0-31.0); Prothrombin Time 13.7 Seconds (9.0-12.0)
[2021-08-01] MEDS ORDERED: SODIUM CHLORIDE 0.9% 500 ML IV ONE (22:08)
[2021-08-01 22:13] LABS: Alanine Aminotransferase 32 U/L (7-52); Albumin Globulin Ratio 1.2 (0.9-2); Alkaline Phosphatase 143 U/L (34-104); Anion Gap 4 (3-11); Aspartate Aminotransferase 34 U/L (13-39); BUN Creatinine Ratio 26.8 (10-20); Bilirubin,Total 1.2 mg/dl (0.2-1.0); Blood Urea Nitrogen 15 mg/dl (6-23); Calcium 8.3 mg/dl (8.5-10.1); Carbon Dioxide 22 mmol/L (21-32); Chloride 118 mmol/L (98-107); Est GFR (African American) 121.7 ml/min; Globulin 2.6 gm/dl (2.5-4.0); Glucose 109 mg/dl (70-99(Fasting)); Magnesium 1.6 mg/dl (1.7-2.4); Potassium 3.8 mmol/L (3.5-5.1); Sodium 144 mmol/L (136-145); Total Protein 5.6 gm/dl (6.0-8.3)
[2021-08-01] MEDS ORDERED: CALCIUM CARBONATE 500 MG CHEWABLE TAB PO STA (22:50)
[2021-08-01] MEDS ORDERED: MAGNESIUM OXIDE 400 MG TAB PO STA (22:50)
[2021-08-01] MEDS ORDERED: LACTULOSE SYRUP 20 GM/30 ML UDC PO STA (23:30)
--- NOTE | 2021-08-02 00:25 | History & Physical Report ---
Date of Service August 02, 2021 Assessment & Plan (1) Acute alteration in mental status: Plan: Suspect acute hepatic encephalopathy -Frequent orientation -Increase Lactulose to TID - titrate to 2-3 soft BMs/day -Continue Rifaximin (2) Depression: Plan: Chronic -Continue Escitalopram (3) Myoclonic seizure: Plan: Chronic. Patient follows with Neurology -Continue Keppra 1500mg po BID -Continue Trileptal -Continue Topamax (4) Diabetes mellitus: Plan: ISS (5) Parkinsonism: Plan: stable (6) Dyslipidemia: Plan: Chronic -Continue Pravastatin Plan: F/E/N - Heplock. Continue Mg repletion, regular diet as tolerated with aspiration precautions Ppx - Lovenox Code - Full Dispo - Admit to medical History of Present Illness Chief Complaint: confusion Primary Care Provider: MD Milly Martinrigoberto Munson is a 55yo female with multiple medical comorbidities to include STEVE with frequent episodes of hepatic encephalopathy, on Rifaximin and Lactulose therapy as well as Parkinsonism and seizure disorder presents from home with concern for intermittent episodes of confusion and increased mireille nolence over the last two days. She also reports feeling dizzy and "out of it". Patient has taken her medications to include two doses of lactulose today and has had 2 BMs. She reports some chronic chills as well as abdominal pain, SOB and non- productive cough. Otherwise, no acute complaints. Patient denies fever, chest pain, nausea, vomiting, diarrhea or constipation. No additional complaints at this time. Patient afebrile, HD stable in the ER. She was given 30gm of Lactulose. ER Course: Lactulose 30gm, Mag Oxide 800mg, CaCO3 x 15oo mg, NSS x 500mL Allergies Allergy/AdvReac Type Severity Reaction Status Date / Time metoclopramide Allergy Severe SEIZURES Verified 08/01/21 22:44 metronidazole Allergy Severe SEIZURE Verified 08/01/21 22:44 tramadol Allergy Severe SEIZURES Verified 08/01/21 22:44 amoxicillin Allergy Intermediate SEE COMMENT Verified 08/01/21 22:44 baclofen Allergy Intermediate RASH Verified 08/01/21 22:44 butalbital Allergy Intermediate HIVES Verified 08/01/21 22:44 dicyclomine Allergy Intermediate HIVES Verified 08/01/21 22:44 nitrofurantoin Allergy Intermediate HIVES/RASH/SEVERE Verified 08/01/21 22:44 [From Macrobid] ITCHING pollen extracts Allergy Intermediate Hives Verified 08/01/21 22:44 Sulfa (Sulfonamide Allergy Intermediate CAUSES Verified 08/01/21 22:44 Antibiotics) BLACK STOOLS Tetracyclines Allergy Intermediate DOXYCYCLINE Verified 08/01/21 22:44 -HIVES adhesive Allergy Mild RASH, Verified 08/01/21 22:44 DUODERM=RED,ITCHY celecoxib Allergy Mild HIVES Verified 08/01/21 22:44 sulindac Allergy Mild ALLERGY Verified 08/01/21 22:44 LISTED "CLONDORAL"--HIVES Cephalosporins AdvReac Severe TURNS Verified 08/01/21 22:44 STOOL VERY DARK levofloxacin [From Levaquin] AdvReac Severe Vomiting Verified 08/01/21 22:44 paroxetine [From Paxil] AdvReac Severe Vomiting Verified 08/01/21 22:44 dextromethorphan AdvReac Mild Vomiting Verified 08/01/21 22:44 Home Medications Medication Instructions Recorded Confirmed Type multivitamin (Multiple Vitamins) 1 tab PO QDL 12/26/17 08/01/21 History lactobacillus combination no.4 3 1 mmu cells PO QDL 09/20/18 08/01/21 History billion cell capsule (Probiotic) vitamin A 2,400 mcg capsule 8,000 unit PO QDL 09/20/18 08/01/21 History vitamin B complex 1 tab PO QDL 09/20/18 08/01/21 History zinc 50 mg tablet 50 mg PO QDL 02/09/19 08/01/21 History epinephrine 0.3 mg/0.3 mL 0.3 mg IM Q10M PRN 04/02/19 08/01/21 History injection, auto-injector (EpiPen 2-Garret) lecithin 1,200 mg capsule 1,200 mg PO QDL 04/29/19 08/01/21 History fexofenadine 60 mg tablet 60 mg PO QAM 04/12/20 08/01/21 History topiramate 100 mg tablet 100 mg PO BID #60 tab 05/17/20 08/01/21 Rx albuterol sulfate 90 mcg/actuation 2 puff INHALATION Q4H PRN #1 05/31/20 08/01/21 Rx aerosol inhaler inhaler cranberry 400 mg capsule 400 mg PO BIDM 06/08/20 08/01/21 History promethazine 25 mg tablet 25 mg PO Q8H PRN #10 tab 10/11/20 08/01/21 Rx levetiracetam 750 mg tablet 1,500 mg PO BID 30 Days #120 tab 10/30/20 08/01/21 Rx levothyroxine 50 mcg tablet 50 mcg PO QAM #30 tab 11/10/20 08/01/21 Rx (Euthyrox) omeprazole 40 mg capsule,delayed 40 mg PO QAM #90 cap 11/15/20 08/01/21 Rx release ascorbate calcium (vitamin C) 500 500 mg PO QDL 11/16/20 08/01/21 History mg tablet vitamin E (dl, acetate) 180 mg 180 mg PO Q OTHER DAY cap 11/16/20 08/01/21 Hist ory (400 unit) capsule cholecalciferol (vitamin D3) 25 5,000 unit PO QDL cap 11/30/20 08/01/21 History mcg (1,000 unit) capsule (Vitamin D3) hydrocortisone 10 mg tablet See Rx Instructions .ROUTE 11/30/20 08/01/21 History .COMPLEX tab oxcarbazepine 300 mg tablet See Rx Instructions .ROUTE 11/30/20 08/01/21 History .COMPLEX tab pravastatin 20 mg tablet 20 mg PO QAM 12/05/20 08/01/21 History escitalopram oxalate 20 mg tablet 20 mg PO QAM 12/29/20 08/01/21 History magnesium oxide 400 mg (241.3 mg 400 mg PO BID #0 tab 01/02/21 08/01/21 Rx magnesium) tablet melatonin 5 mg tablet 10 mg PO HS #1 tab 01/02/21 08/01/21 Rx ropinirole 0.25 mg tablet 0.25 mg PO BID 90 Days #180 tab 01/10/21 08/01/21 Rx acetaminophen 500 mg tablet 1,000 mg PO HS #0 tab 04/20/21 08/01/21 Rx (Tylenol Extra Strength) zdnlabbvlhxtvfshnvhmcn-bzvihlux-jvykeyga 2 drops OP HS #0 ml 04/20/21 08/01/21 Rx 80 0.5 %-1 %-0.5 % eye drops (Refresh Optive Advanced) acetaminophen 500 mg tablet 500 mg PO BID PRN 06/22/21 08/01/21 History (Tylenol Extra Strength) diclofenac sodium 1 % topical gel 4 g EXT QID PRN 06/22/21 08/01/21 History (Voltaren Arthritis Pain) pen needle, diabetic 32 gauge x #400 ea 06/26/21 07/19/21 Rx 32" (BD Ultra-Fine Sheridan Pen Needle) insulin aspart U-100 100 unit/mL 15 - 25 unit SQ TID #30 ml MDD 60 07/07/21 08/01/21 Rx (3 mL) subcutaneous pen (Novolog units Flexpen U-100 Insulin aspart) insulin degludec 100 unit/mL (3 30 unit SUBCUT QAM #15 ml 07/07/21 08/01/21 Rx mL) subcutaneous pen (Tresiba FlexTouch U-100 insulin) blood sugar diagnostic (OneTouch #50 ea 07/17/21 07/19/21 Rx Verio test strips) galcanezumab-gnlm 120 mg/mL 240 mg SUBCUT ONCE 30 Days #2 ml 07/19/21 08/01/21 Rx subcutaneous pen injector (Emgality Pen) ipratropium 0.5 mg-albuterol 3 mg 3 ml INH QID PRN #90 ml 07/19/21 08/01/21 Rx (2.5 mg base)/3 mL nebulization soln benztropine 1 mg tablet 1 mg PO TID 30 Days #90 tab 07/20/21 08/01/21 Rx teriparatide 20 mcg/dose (620 20 mcg SUBCUT PM #7.44 ml 07/20/21 08/01/21 Rx mcg/2.48 mL) subcutaneous pen injector Blue-Emu Cream 1 applic TOPICAL HS 07/22/21 08/01/21 History Cognitive Formula 1 tab PO QDL 07/22/21 08/01/21 History calcium carbonate 500 mg calcium 500 mg PO QDL 07/22/21 08/01/21 History (1,250 mg) tablet lactulose 20 gram/30 mL oral 45 ml PO BID #2880 ml 07/26/21 08/01/21 Rx solution rifaximin 550 mg tablet (Xifaxan) 550 mg PO BID #60 tab 07/26/21 08/01/21 Rx Past Med/Surg History Medical History Altered mental status Depression Frequent falls See care alert special indicator. H/O osteoporotic pathological fracture Hyperammonemia Migraine Myoclonic seizure "FREQUENT MYOCLONIC SEIZURES" FOLLOWS WITH DR. YANG Nonalcoholic fatty liver disease Pancytopenia Chronic. Follows with cancer center. Platelets have been > 100 since 10/2019, WNL on 05/23 labs. H/H stable in 8-10 range. Parkinsonism Sleepiness Spleen enlargement UTI (urinary tract infection) Surgical History Femur fracture, right SPIRAL FRACTURE REPAIRED (HARDWARE REPAIRED) History of ankle surgery RT/LEFT History of appendectomy History of cholecystectomy History of colonoscopy History of esophagogastroduodenoscopy (EGD) History of kyphoplasty History of open reduction and internal fixation (ORIF) procedure RT HIP History of surgery (~06/02/20) screw/plate removal from left humerus History of surgery on arm LEFT (HARDWARE INTACT) History of tooth extraction History of vascular access device right A port Hx of carpal tunnel repair RT/LEFT Hx of cataract extraction RT/LEFT S/P laminectomy lumbar spine S/P nasal surgery nasal bone fracture repair S/P TIFFANIE-BSO (1997) Family History Other Adopted No pertinent family history Social History Smoking Status: Never smoker Tobacco Type: Cigarettes Second Hand Exposure: No; Hx Alcohol Use: No Hx Substance Use: No Preferred Language: Wallisian Communication Ability: Effective Visual Impairment: No 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 Beliefs That Will Affect Care: None marital status: Current Living Situation: Spouse Current Living Situation Comment: Lives with current occupational status: unemployed and disabled How many Children do You have: 0 Feels Safe at Home: Yes Seatbelt Use: always Assistive Devices: Walker and Wheelchair Review of Systems Review of Systems: All systems reviewed & are unremarkable except as noted in HPI & below Physical Exam Physical Exam: General: patient resting comfortably, NAD, non-toxic in appearance, AA&O to person and place Skin: warm, dry, intact, no rashes or lesions HEENT: NC/AT, PERRL, EOMI, anicteric sclera, conjunctiva without injection, external ear normal to inspection and nontender, nares patent, moist mucus membranes, dentition intact, no oropharyngeal lesions, neck supple, trachea midline, no LAD, no thyromegaly, no JVD Heart: +S1/S2, regular, bradycardic, no m/r/g Lungs: equal air entry bilaterally, no rales/rhonchi/wheezes Abd: +BS, soft, NT/ND, no masses/organomegaly/ascites Ext: warm, 2+ pulses in UE/LE bilaterally, no clubbing/cyanosis or edema Neuro: nonfocal, patient AA&O x 2, speech intact, no facial droop, moving all extremities on command with equal strength 5/5, head tremor Results & Data Results & Data ([facility]) Vital Signs (Past 12 Hours) Vital Signs Temp Pulse Resp BP Pulse Ox 08/01/21 22:16 98 08/01/21 21:12 36.5 C 69 18 151/71 H 97 Laboratory Results Laboratory Results WBC 3.85 K/uL (4.8-10.8) L 08/01/21 21:43 RBC 3.27 M/uL (4.2-5.4) L 08/01/21 21:43 Hgb 11.1 g/dL (12.0-16.0) L 08/01/21 21:43 Hct 32.6 % (37-47) L 08/01/21 21:43 MCV 99.7 fL (80-100) 08/01/21 21:43 MCH 33.9 pg (25-34) 08/01/21 21:43 MCHC 34.0 g/dL (32-36) 08/01/21 21:43 RDW Std Deviation 52.4 fL (36.4-46.3) H 08/01/21 21:43 RDW Coeff of Irina 14.5 % (11.5-14.5) 08/01/21 21:43 Plt Count 101 K/uL (130-400) L 08/01/21 21:43 MPV 10.5 fL (7.4-10.4) H 08/01/21 21:43 Immature Gran % (Auto) 0.3 % 08/01/21 21:43 Neut % (Auto) 57.1 % 08/01/21 21:43 Lymph % (Auto) 30.6 % 08/01/21 21:43 Coryell % (Auto) 8.6 % 08/01/21 21:43 Eos % (Auto) 2.6 % 08/01/21 21:43 Baso % (Auto) 0.8 % 08/01/21 21:43 Neut # (Auto) 2.20 K/uL (1.4-6.5) 08/01/21 21:43 Lymph # (Auto) 1.18 K/uL (1.2-3.4) L 08/01/21 21:43 Coryell # (Auto) 0.33 K/uL (0.11-0.59) 08/01/21 21:43 Eos # (Auto) 0.10 K/uL (0-0.5) 08/01/21 21:43 Baso # (Auto) 0.03 K/uL (0-0.2) 08/01/21 21:43 Immature Gran # (Auto) 0.01 K/uL (0.00-0.02) 08/01/21 21:43 PT 13.7 Seconds (9.0-12.0) H 08/01/21 21:43 INR 1.3 (0.9-1.1) H 08/01/21 21:43 APTT 40.1 Seconds (21.0-31.0) H 08/01/21 21:43 PTT Ratio 1.5 08/01/21 21:43 Sodium 144 mmol/L (136-145) 08/01/21 21:43 Potassium 3.8 mmol/L (3.5-5.1) 08/01/21 21:43 Chloride 118 mmol/L (98-107) H 08/01/21 21:43 Carbon Dioxide 22 mmol/L (21-32) 08/01/21 21:43 Anion Gap 4 (3-11) 08/01/21 21:43 BUN 15 mg/dl (6-23) 08/01/21 21:43 Creatinine 0.56 mg/dl (0.6-1.2) L 08/01/21 21:43 Est Cr Clr Drug Dosing Not Reportable 08/01/21 21:43 Est GFR ( Amer) 121.7 ml/min 08/01/21 21:43 Est GFR (Non-Af Amer) 105.0 ml/min 08/01/21 21:43 BUN/Creatinine Ratio 26.8 (10-20) H 08/01/21 21:43 Glucose 109 mg/dl (70-99(Fasting)) H 08/01/21 21:43 POC Glucose 105 mg/dl (70-99) H 08/01/21 21:52 Calcium 8.3 mg/dl (8.5-10.1) L 08/01/21 21:43 Magnesium 1.6 mg/dl (1.7-2.4) L 08/01/21 21:43 Total Bilirubin 1.2 mg/dl (0.2-1.0) H 08/01/21 21:43 AST 34 U/L (13-39) 08/01/21 21:43 ALT 32 U/L (7-52) 08/01/21 21:43 Alkaline Phosphatase 143 U/L (34-104) H 08/01/21 21:43 Ammonia 91.0 umol/L (18-72) H 08/01/21 22:56 Total Protein 5.6 gm/dl (6.0-8.3) L 08/01/21 21:43 Albumin 3.0 gm/dl (3.4-5.0) L 08/01/21 21:43 Globulin 2.6 gm/dl (2.5-4.0) 08/01/21 21:43 Albumin/Globulin Ratio 1.2 (0.9-2) 08/01/21 21:43 TSH 1.058 uIu/ml (0.300-4.500) 08/01/21 21:43 Ethyl Alcohol mg/dL < 10.0 mg/dl (<10.0) 08/01/21 22:56 SARS-CoV-2, RNA, NAAT NEGATIVE (NEGATIVE) 08/01/21 22:03 PG Care Time/CCT Total # of Minutes Spent Total Time Spent with Patient: Total time spent is greater than 50% in coordination of care (as documented) at patient's floor/unit and/or counseling patient: Coding Level of Care Code 25507 Initial Inpt Care Lvl 3 Diagnoses Acute alteration in mental status R41.82 Depression F32.9 Myoclonic seizure G40.409 Diabetes mellitus E11.9 Parkinsonism G20 Dyslipidemia E78.5
[2021-08-02] MEDS ORDERED: PROMETHAZINE 12.5 MG/50.5 ML BAG IV STA (00:54)
[2021-08-02] MEDS ORDERED: GLUCOSE 40% GEL 15 GM TUBE PO PRN (03:36)
[2021-08-02] MEDS ORDERED: ACETAMINOPHEN 500 MG TAB PO PRN (03:36)
[2021-08-02] MEDS ORDERED: ONDANSETRON INJ 2 MG/ML 2 ML VIAL IV PRN (03:36)
[2021-08-02] MEDS ORDERED: GLUCAGON FOR INJ 1 MG VIAL SQ PRN (03:36)
[2021-08-02] MEDS ORDERED: DEXTROSE 50% 50 ML SYRINGE IV PRN (03:36)
[2021-08-02] MEDS ORDERED: ALBUT/IPRATROP 3MG/0.5MG NEB 3 ML VIAL INH PRN (03:36)
[2021-08-02] MEDS ORDERED: GLUCOSE 10 TABS/TUBE PO PRN (03:36)
[2021-08-02] MEDS ORDERED: CARBOHYDRATES FOR HYPOGLYCEMIA PO PRN (03:36)
[2021-08-02] MEDS ORDERED: PROMETHAZINE HCL 25 MG TAB PO PRN (03:36)
[2021-08-02] MEDS ORDERED: ALBUTEROL HFA 8 GM INHALER INH PRN (03:36)
[2021-08-02] MEDS ORDERED: LEVOTHYROXINE SODIUM 50 MCG TABLET PO SCH (06:30)
--- NOTE | 2021-08-02 07:13 | Hospitalist Progress Note ---
Date of Service August 02, 2021 Assessment & Plan (1) Acute alteration in mental status: Plan: 55yo female with multiple medical comorbidities to include STEVE with frequent episodes of hepatic encephalopathy, on Rifaximin and Lactulose therapy as well as Parkinsonism and seizure disorder presents from home with concern for intermittent episodes of confusion and increased somnolence migraine? (1) Acute alteration in mental status: Suspect acute hepatic encephalopathy -Frequent orientation -Increase Lactulose to TID - titrate to 2-3 soft BMs/day -Continue Rifaximin (2) Depression: Chronic -Continue Escitalopram (3) Myoclonic seizure: Chronic. Patient follows with Neurology -Continue Keppra 1500mg po BID -Continue Trileptal -Continue Topamax (4) Diabetes mellitus: ISS (5) Parkinsonism: Plan: stable (6) Dyslipidemia: Chronic -Continue Pravastatin F/E/N - Heplock. Continue Mg repletion, regular diet as tolerated with aspiration precautions Ppx - Lovenox Code - Full Dispo - Admit to medical (2) Depression: (3) Myoclonic seizure: (4) Diabetes mellitus: (5) Parkinsonism: (6) Dyslipidemia: Admission and Anticipated Discharge Date Admission Date: August 02, 2021 Subjective 2 days of not feeling well. Currently still feels unwell, described as confusion, headache, dizziness (room spinning). Symptoms are constant. They feel similar to her prior hospitalizations. Denies other symptoms. Review of Systems Review of Systems: All systems reviewed & are unremarkable except as noted in HPI & below Physical Exam Physical Exam: General: A&O to self only. NAD. Cooperative. + head bobbing during conversation. Answer questions. Eating breakfast. HEENT: Atraumatic, normocephalic. EOMI Pulm: CTAB. -wheezes, -rales, -rhonchi. No respiratory distress. Cardiac: RRR, -mrg. Minimal Trace BLE. Abdominal: Nontender, nondistended, soft. Integ: No obvious jaundice. Results & Data Results & Data ([facility]) Vital Signs (Past 12 Hours) Vital Signs Temp Pulse Pulse Resp BP BP Pulse Ox 08/02/21 03:00 36.5 C 68 17 153/71 H 98 08/02/21 02:40 61 18 98 08/02/21 02:30 60 18 127/59 L 98 08/02/21 02:20 61 18 99 08/02/21 02:10 61 18 98 08/02/21 02:00 62 19 151/70 H 99 08/02/21 01:50 60 19 99 08/02/21 01:40 63 19 100 08/02/21 01:31 63 20 136/61 99 08/02/21 01:30 65 22 99 08/02/21 01:20 61 19 99 08/02/21 01:10 59 L 20 99 08/02/21 01:01 84 23 117/97 08/02/21 01:00 63 19 98 08/02/21 00:50 60 23 08/02/21 00:40 60 21 08/02/21 00:30 59 L 20 129/61 99 08/02/21 00:20 59 L 23 08/02/21 00:10 59 L 22 08/02/21 00:00 58 L 20 137/60 08/01/21 23:50 72 22 08/01/21 23:40 68 18 99 08/01/21 23:30 58 L 18 128/60 99 08/01/21 23:20 58 L 19 99 08/01/21 23:10 71 22 08/01/21 23:00 58 L 23 143/62 H 99 08/01/21 22:50 57 L 20 99 08/01/21 22:40 58 L 22 98 08/01/21 22:36 61 20 100 08/01/21 22:16 98 08/01/21 21:12 36.5 C 69 18 151/71 H 97 Resident Activity Tracking Resident Involvement: Resident Care Provided Care Provided: Adult Hospital Medicine
--- NOTE | 2021-08-02 07:59 | XRay Report ---
XR chest 1V portable HISTORY: weakness COMPARISON: Chest 07/22/2021. FINDINGS: No pneumothorax. No pleural effusions. The heart remains mildly enlarged. There are low waldo g volumes. There is mild central pulmonary vascular congestion without overt edema. No new focal lung consolidations. Right jugular Port-A-Cath terminates at the SVC. Old, healed left humeral neck fract ure is again noted. IMPRESSION: Cardiomegaly and mild congestive change persists. ACT 112: Negative or not required by law. Electronically signed by: Talon Cruz M.D. 08/02/2021 7:58 AM
[2021-08-02 08:36] LABS: Hematocrit (blood only) 30.3 % (37-47); Hemoglobin 10.3 g/dL (12.0-16.0); Mean Corpuscular Hemoglobin 33.9 pg (25-34); Mean Corpuscular Volume 99.7 fL (80-100); RDW Coefficient of Variation 14.4 % (11.5-14.5); RDW Standard Deviation 50.7 fL (36.4-46.3); Red Blood Count 3.04 M/uL (4.2-5.4); White Blood Count 3.65 K/uL (4.8-10.8)
[2021-08-02 08:46] LABS: INR 1.3 (0.9-1.1); Partial Thromboplastin Ratio 1.1; Partial Thromboplastin Time 30.2 Seconds (21.0-31.0); Prothrombin Time 13.8 Seconds (9.0-12.0)
[2021-08-02 08:55] LABS: Albumin Globulin Ratio 1.2 (0.9-2); Albumin Level 2.8 gm/dl (3.4-5.0); Bilirubin,Total 1.4 mg/dl (0.2-1.0); Calcium 7.9 mg/dl (8.5-10.1); Creatinine Clr Calc Pharmacy 127.7 ml/min; Est GFR (African American) 124.7 ml/min; Est GFR (Non-African American) 107.6 ml/min; Globulin 2.3 gm/dl (2.5-4.0); Magnesium 1.6 mg/dl (1.7-2.4); Potassium 3.6 mmol/L (3.5-5.1); Total Protein 5.1 gm/dl (6.0-8.3)
[2021-08-02 08:58] LABS: Mean Platelet Volume 10.2 fL (7.4-10.4); Platelet Count 87 K/uL (130-400)
[2021-08-02 09:00] LABS: ALC (manual) 1.24 K/uL (1.2-3.4); ANC (manual) 2.06 K/uL (1.4-6.5); Eosinophils # (manual) 0.13 K/uL (0-0.5); Eosinophils % (manual) 3.5 %; Lymphocytes # (manual) 1.24 K/uL (1.2-3.4); Lymphocytes % (manual) 33.9 %; Monocytes # (manual) 0.22 K/uL (0.11-0.59); Monocytes % (manual) 6.1 %; Neutrophils # (manual) 2.06 K/uL (1.4-6.5); Neutrophils % (manual) 56.5 %
[2021-08-02] MEDS ORDERED: FEXOFENADINE 60 MG TAB PO SCH (09:00)
[2021-08-02] MEDS ORDERED: rOPINIRole HCL 0.25 MG TABLET PO SCH (09:00)
[2021-08-02] MEDS ORDERED: levETIRAcetam 500 MG TAB PO SCH (09:00)
[2021-08-02] MEDS ORDERED: INSULIN GLARGINE SOLOSTAR 100 UNITS/ML 3 ML PEN SC SCH (09:00)
[2021-08-02] MEDS ORDERED: PRAVASTATIN SOD 20 MG TAB PO SCH (09:00)
[2021-08-02] MEDS ORDERED: TOPIRAMATE 100 MG TAB PO SCH (09:00)
[2021-08-02] MEDS ORDERED: HYDROCORTISONE 10 MG TAB PO SCH ×2 (09:00→17:00)
[2021-08-02] MEDS ORDERED: MAGNESIUM OXIDE 400 MG TAB PO SCH (09:00)
[2021-08-02] MEDS ORDERED: OXcarbazepine 150 MG TABLET PO SCH ×2 (09:00→17:00)
[2021-08-02] MEDS ORDERED: rifAXIMin 550 MG TABLET PO SCH (09:00)
[2021-08-02] MEDS ORDERED: ESCITALOPRAM OXALATE 20 MG TAB PO SCH (09:00)
[2021-08-02] MEDS: LACTULOSE SYRUP 30 GM/45 ML UDP PO SCH ×2 (09:03→13:03)
[2021-08-02] MEDS: BENZTROPINE MESYLATE 1 MG TAB PO SCH ×2 (09:03→13:03)
[2021-08-02] MEDS: INSULIN ASPART PER UNIT SC SCH ×2 (09:05→13:03)
[2021-08-02 09:20] LABS: Folate (Folic Acid) 19.56 ng/ml (>5.38)
--- NOTE | 2021-08-02 10:47 | Discharge Summary ---
Date of Service August 02, 2021 Admission HPI Per Admitting Provider Marcelle Ramsey Arpit is a 55yo female with multiple medical comorbidities to include STEVE with frequent episodes of hepatic encephalopathy, on Rifaximin and Lactulose therapy as well as Parkinsonism and seizure disorder presents from home with concern for intermittent episodes of confusion and increased somnolence over the last two days. She also reports feeling dizzy and "out of it". Patient has taken her medications to include two doses of lactulose today and has had 2 BMs. She reports some chronic chills as well as abdominal pain, SOB and non- productive cough. Otherwise, no acute complaints. Patient denies fever, chest pain, nausea, vomiting, diarrhea or constipation. No additional complaints at this time. Patient afebrile, HD stable in the ER. She was given 30gm of Lactulose. ER Course: Lactulose 30gm, Mag Oxide 800mg, CaCO3 x 15oo mg, NSS x 500mL Admission Exam Per Admitting Provider General: patient resting comfortably, NAD, non-toxic in appearance, AA&O to person and place Skin: warm, dry, intact, no rashes or lesions HEENT: NC/AT, PERRL, EOMI, anicteric sclera, conjunctiva without injection, external ear normal to inspection and nontender, nares patent, moist mucus membranes, dentition intact, no oropharyngeal lesions, neck supple, trachea midline, no LAD, no thyromegaly, no JVD Heart: +S1/S2, regular, bradycardic, no m/r/g Lungs: equal air entry bilaterally, no rales/rhonchi/wheezes Abd: +BS, soft, NT/ND, no masses/organomegaly/ascites Ext: warm, 2+ pulses in UE/LE bilaterally, no clubbing/cyanosis or edema Neuro: nonfocal, patient AA&O x 2, speech intact, no facial droop, moving all extremities on command with equal strength 5/5, head tremor Principal Diagnosis altered mental status Discharge Exam Physical Exam: General: A&O to self only. NAD. Cooperative. + head bobbing during conversation. Answer questions. Eating breakfast. HEENT: Atraumatic, normocephalic. EOMI Pulm: CTAB. -wheezes, -rales, -rhonchi. No respiratory distress. Cardiac: RRR, -mrg. Minimal Trace BLE. Abdominal: Nontender, nondistended, soft. Integ: No obvious jaundice. Discharge Data Allergies Allergy/AdvReac Type Severity Reaction Status Date / Time metoclopramide Allergy Severe SEIZURES Verified 08/01/21 22:44 metronidazole Allergy Severe SEIZURE Verified 08/01/21 22:44 tramadol Allergy Severe SEIZURES Verified 08/01/21 22:44 amoxicillin Allergy Intermediate SEE COMMENT Verified 08/01/21 22:44 baclofen Allergy Intermediate RASH Verified 08/01/21 22:44 butalbital Allergy Intermediate HIVES Verified 08/01/21 22:44 dicyclomine Allergy Intermediate HIVES Verified 08/01/21 22:44 nitrofurantoin Allergy Intermediate HIVES/RASH/SEVERE Verified 08/01/21 22:44 [From Macrobid] ITCHING pollen extracts Allergy Intermediate Hives Verified 08/01/21 22:44 Sulfa (Sulfonamide Allergy Intermediate CAUSES Verified 08/01/21 22:44 Antibiotics) BLACK STOOLS Tetracyclines Allergy Intermediate DOXYCYCLINE Verified 08/01/21 22:44 -HIVES adhesive Allergy Mild RASH, Verified 08/01/21 22:44 DUODERM=RED,ITCHY celecoxib Allergy Mild HIVES Verified 08/01/21 22:44 sulindac Allergy Mild ALLERGY Verified 08/01/21 22:44 LISTED "CLONDORAL"--HIVES Cephalosporins AdvReac Severe TURNS Verified 08/01/21 22:44 STOOL VERY DARK levofloxacin [From Levaquin] AdvReac Severe Vomiting Verified 08/01/21 22:44 paroxetine [From Paxil] AdvReac Severe Vomiting Verified 08/01/21 22:44 dextromethorphan AdvReac Mild Vomiting Verified 08/01/21 22:44 Consultations 08/01/21 23:31 ED Decision to Admit Stat Ordered Studies Cardiac Enzymes 08/01/21 08/02/21 Range/Units 21:43 07:56 AST 34 31 (13-39) U/L Coagulation 08/01/21 08/02/21 Range/Units 21:43 07:56 PT 13.7 H 13.8 H (9.0-12.0) Seconds APTT 40.1 H 30.2 (21.0-31.0) Seconds CBC 08/01/21 08/02/21 Range/Units 21:43 07:56 WBC 3.85 L 3.65 L (4.8-10.8) K/uL RBC 3.27 L 3.04 L (4.2-5.4) M/uL Hgb 11.1 L 10.3 L (12.0-16.0) g/dL Hct 32.6 L 30.3 L (37-47) % Plt Count 101 L 87 L (130-400) K/uL Neut # (Auto) 2.20 (1.4-6.5) K/uL Lymph # (Auto) 1.18 L (1.2-3.4) K/uL Ripley # (Auto) 0.33 (0.11-0.59) K/uL Eos # (Auto) 0.10 (0-0.5) K/uL Baso # (Auto) 0.03 (0-0.2) K/uL Comprehensive Metabolic Panel 08/01/21 08/02/21 Range/Units 21:43 07:56 Sodium 144 144 (136-145) mmol/L Potassium 3.8 3.6 (3.5-5.1) mmol/L Chloride 118 H 116 H (98-107) mmol/L Carbon Dioxide 22 23 (21-32) mmol/L BUN 15 13 (6-23) mg/dl Creatinine 0.56 L 0.52 L (0.6-1.2) mg/dl Glucose 109 H 61 L (70-99(Fasting)) mg/dl Calcium 8.3 L 7.9 L (8.5-10.1) mg/dl AST 34 31 (13-39) U/L ALT 32 30 (7-52) U/L Alkaline Phosphatase 143 H 118 H (34-104) U/L Total Protein 5.6 L 5.1 L (6.0-8.3) gm/dl Albumin 3.0 L 2.8 L (3.4-5.0) gm/dl Intake and Output 08/02/21 08/02/21 08/02/21 06:59 14:59 22:59 Intake Total 550.5 / 550.5 960 / 960 Output Total 2 / 2 Balance 550.5 / 550.5 958 / 958 Intake: IV 550.5 / 550.5 Promethazine 12.5 mg In 50.5 ml 50.5 / 50.5 @ 202 mls/hr IV NOW STA Rx#: [id number] Sodium Chloride 0.9% 500 ml @ 500 / 500 999 mls/hr IV .Q31M ONE Rx#: [id number] Oral 960 / 960 Output: # Bowel Movements 2 / 2 Other: # Unmeasured Voids 1 4 Weight 80 kg 80 kg Weight Measurement Method Built in Bedscale Patient Weight 08/03/21 06:59 Weight 80 kg Chest X-Ray 08/01/21 21:43 XR chest 1V portable HISTORY: weakness COMPARISON: Chest 07/22/2021. FINDINGS: No pneumothorax. No pleural effusions. The heart remains mildly enlarged. There are low lung volumes. There is mild central pulmonary vascular congestion without overt edema. No new focal lung consolidations. Right jugular Port-A-Cath terminates at the SVC. Old, healed left humeral neck fracture is again noted. IMPRESSION: Cardiomegaly and mild congestive change persists. ACT 112: Negative or not required by law. Electronically signed by: Talon Cruz M.D. 08/02/2021 7:58 AM Hospital Course (1) Acute alteration in mental status: 55yo female with multiple medical comorbidities to include STEVE with frequent episodes of hepatic encephalopathy, on Rifaximin and Lactulose therapy as well as Parkinsonism and seizure disorder presented from home with concern for intermittent episodes of confusion and increased somnolence. Acute alteration in mental status: -?sec to noncompliance with lactulose. E -Increased home Lactulose from BID to TID - titrate to 2-3 soft BMs/day -Recent outpatient brain MRI reassuring. No significant change from 11/05/17 MRI. -Continue Rifaximin -Blood cultures pending. UA deferred in absence of urinary symptoms. -No obvious source of infection -Observed overnight. Stable for dc home. STEVE cirrhosis: -Chronic, w/ associated hepatic encephalopathy and thrombocytopenia. See regimen above. She has had multiple hospital admissions. -MELD score 11 points (6% estimated 3 month mortality). Depression: -Continue Escitalopram Myoclonic seizure: -Chronic.Patient follows with Neurology -Continue Keppra, Trileptal, and Topamax Diabetes mellitus: -Resume home regimen Parkinsonism: -Stable Dyslipidemia: -Continue Pravastatin Anemia -Hb 10.3, at baseline. Borderline macrocytic. B12 and folate wnl. Pancytopenia -Chronic, stable Patient was full code this admission. (2) Depression: (3) Myoclonic seizure: (4) Diabetes mellitus: (5) Parkinsonism: (6) Dyslipidemia: (7) Chronic anemia: (8) Leukopenia: Total Time Total Time Spent Total Time Spent (In Minutes): <30 Discharge Plan Discharge Items Patient Disposition: Home - Self-Care Reason For Visit: AMS Discharge Diagnosis: altered mental status Activity: Per Instructions section Non-emergency contact: Primary Care Provider Call non-emergency contact if: you have any medication questions, your symptoms worsen and you have a fever Follow-up/Referrals: Mo Griggs MD [Primary Care Provider] - 08/06/21 9:10 am (hospital d ischarge follow up) Diet: Carb Consistent or DM2 Addtl Attending Provider Instructions: You were admitted to [facility] for confusion. Your lactulose was increased to 3 times a day. Goal is for 2-3 soft bowel movements a day. Please follow up with your outpatient PCP. Your PCP will adjust your lactulose dose as needed (max of 4 doses a day). Return precautions: If you develop any new or worsening symptoms including fever, chills, sweats, chest pain, chest pressure, difficulty breathing, uncontrolled nausea/vomiting, rash, wheezing, passing out or nearly passing out, bleeding, black/bloody bowel movements, or other new or concerning symptoms please call your primary care physician, or call 911 for re-evaluation in the emergency department if you are very concerned. Pending Studies at Discharge: No Stand-Alone Forms: My [facility] Picket, Smoking Cessation Medications and DC Order Prescriptions: Continued topiramate 100 mg tablet 100 mg PO BID Qty: 60 RF: 5 albuterol sulfate 90 mcg/actuation HFA aerosol inhaler 2 puff inhalation Q4H PRN (Reason: shortness of breath) Qty: 1 RF: 3 levothyroxine [Euthyrox] 50 mcg tablet 50 mcg PO QAM Qty: 30 RF: 2 omeprazole 40 mg capsule,delayed release(DR/EC) 40 mg PO QAM Qty: 90 RF: 1 ropinirole 0.25 mg tablet 0.25 mg PO BID 90 Days Qty: 180 RF: 1 (DME) pen needle, diabetic [BD Ultra-Fine [place]idan Pen Needle] 32 gauge x 5/32" needle See Rx Instructions .Route Qty: 400 RF: 3 insulin aspart U-100 [Novolog Flexpen U-100 Insulin] 100 unit/mL (3 mL) insulin pen 15 - 25 unit SQ TID MDD 60 units Qty: 30 RF: 5 Tresiba FlexTouch U-100 100 unit/mL (3 mL) insulin pen 30 unit subcut QAM Qty: 15 RF: 1 ipratropium-albuterol 0.5 mg-3 mg(2.5 mg base)/3 mL solution for nebulization 3 ml INH QID PRN (Reason: wheezing) Qty: 90 RF: 0 teriparatide 20 mcg/dose (620mcg/2.48mL) pen injector 20 mcg subcut PM Qty: 7.44 RF: 0 benztropine 1 mg tablet 1 mg PO TID 30 Days Qty: 90 RF: 5 Xifaxan 550 mg tablet 550 mg PO BID Qty: 60 RF: 5 levetiracetam 750 mg tablet 1,500 mg PO BID 30 Days Qty: 120 RF: 5 cholecalciferol (vitamin D3) [Vitamin D3] 25 mcg (1,000 unit) capsule 5,000 unit PO QDL RF: 0 promethazine 25 mg tablet 25 mg PO Q8H PRN (Reason: nausea and vomiting) Qty: 10 RF: 0 ascorbate calcium (vitamin C) 500 mg tablet 500 mg PO QDL RF: 0 vitamin E (dl, acetate) 180 mg (400 unit) capsule 180 mg PO Q OTHER DAY RF: 0 (DME) SavySwapTouch Verio test strips Strip See Rx Instructions .Route Qty: 50 RF: 5 epinephrine [EpiPen 2-Garret] 0.3 mg/0.3 mL auto-injector 0.3 mg IM Q10M PRN (Reason: Anaphylaxis) RF: 0 lecithin 1,200 mg capsule 1,200 mg PO QDL RF: 0 cranberry 400 mg capsule 400 mg PO BIDM RF: 0 Emgality Pen 120 mg/mL pen injector 240 mg subcut ONCE 30 Days Qty: 2 RF: 0 multivitamin [Multiple Vitamins] Tablet 1 tab PO QDL RF: 0 zinc 50 mg Tablet 50 mg PO QDL RF: 0 vitamin A 8,000 unit Capsule 8,000 unit PO QDL RF: 0 vitamin B complex Tablet 1 tab PO QDL RF: 0 Probiotic 3 billion cell Capsule 1 mmu cells PO QDL RF: 0 fexofenadine 60 mg Tablet 60 mg PO QAM RF: 0 hydrocortisone 10 mg tablet See Rx Instructions .ROUTE .COMPLEX RF: 0 oxcarbazepine 300 mg tablet See Rx Instructions .ROUTE .COMPLEX RF: 0 calcium carbonate 500 mg calcium (1,250 mg) Tablet 500 mg PO QDL RF: 0 Blue-Emu Cream 1 applic topical HS RF: 0 Cognitive Formula 1 tab PO QDL RF: 0 pravastatin 20 mg tablet 20 mg PO QAM RF: 0 escitalopram oxalate 20 mg tablet 20 mg PO QAM RF: 0 melatonin 5 mg tablet 10 mg PO HS Qty: 1 RF: 0 magnesium oxide 400 mg (241.3 mg magnesium) tablet 400 mg PO BID Qty: 0 RF: 0 acetaminophen [Tylenol Extra Strength] 500 mg Tablet 1,000 mg PO HS Qty: 0 RF: 0 Refresh Optive Advanced 0.5-1-0.5 % drops 2 drops OP HS Qty: 0 RF: 0 acetaminophen [Tylenol Extra Strength] 500 mg tablet 500 mg PO BID PRN (Reason: Pain) RF: 0 diclofenac sodium [Voltaren Arthritis Pain] 1 % gel 4 g EXT QID PRN (Reason: Pain) RF: 0 Changed lactulose 20 gram/30 mL solution 45 ml PO TID Qty: 2880 RF: 1 Discharge Orders: Discharge Order (Routine); Ordered 08/02/21 Ordered By: Caleb York Admission Data Admit Date/Time: 08/02/21 00:24 Attending Provider: Liliam Pierre Admit Provider: Amalia Beatty Primary Care Provider: Mo Griggs Other Providers: Amalia Beatty Other Interventions: Discharge Summary Assessment (RN) Last Done: 08/02/21 15:36 Supervising Physician Co-Signing Physician Notes Resident Physician Supervision Note: I independently interviewed and examined the patient and verified the tai history and physical, reviewed labs and image studies and agree with resident Dr. York findings and care plan. Resident Activity Tracking Resident Involvement: Resident Care Provided Care Provided: Adult Hospital Medicine
--- NOTE | 2021-08-02 14:17 | Electrocardiogram Report ---
Test Reason : Blood Pressure : / mmHG Vent. Rate : 069 BPM Atrial Rate : 069 BPM P-R Int : 160 ms QRS Dur : 094 ms QT Int : 400 ms P-R-T Axes : 041 -13 014 degrees QTc Int : 429 ms Normal sinus rhythm Minimal voltage criteria for LVH, may be normal variant Otherwise normal ECG When compared with ECG of 22-JUL-2021 08:47, No significant change Confirmed by Juliano Mccracken ([id number]) on 08/02/2021 2:17:21 PM Referred By: REFERRED SELF Confirmed By:Juliano Mccracken
[2021-08-02] MEDS ORDERED: ACETAMINOPHEN 500 MG TAB PO SCH (21:00)
== END 2021-08-02 16:14 | disposition home or self-care (01) ==
LOC: ED 21:07 → INTOOBSV 08-02 00:24 → SUATTDRO 08-02 00:24 → 3N 08-02 00:24

== ENCOUNTER 2021-08-08 14:41 | Observation (INO) ==
[2021-08-08] MEDS ORDERED: SODIUM CHLORIDE 0.9% 500 ML IV ONE (15:16)
--- NOTE | 2021-08-08 15:49 | XRay Report ---
SINGLE VIEW CHEST CLINICAL HISTORY: Atypical chest pain. FINDINGS: An AP, portable, supine chest radiograph is compared to study dated 08/01/2021. A right inte rnal jugular central venous infusion port is unchanged in position. The heart is enlarged. The pulmon benedict vasculature is noncongested. Atelectasis is noted at the lung bases. No airspace consolidation or large pleural effusion is identified. No pneumothorax is seen. The skeletal structures are osteopeni c. The bony thorax is grossly intact. Degenerative change is noted in the shoulders. Cholecystectomy clips are seen in the right upper quadrant. IMPRESSION: Cardiomegaly with no active disease in the chest. ACT 112: Negative or not required by law. Electronically signed by: Aiden Randolph M.D. 08/08/2021 3:48 PM
--- NOTE | 2021-08-08 15:51 | XRay Report ---
XR knee RT 1 or 2V routine CLINICAL HISTORY: Right knee pain. COMPARISON STUDY: Right knee 07/17/2021. FINDINGS: No acute fracture or dislocation within the right knee. No significant knee effusion. Old p ostoperative/posttraumatic changes again noted within the distal femur including antibiotic cement be ads. This remains unchanged. Mild osteoporosis within the medial compartment of the knee. No signific ant soft tissue swelling. IMPRESSION: 1. No acute fracture or dislocation within the right knee. 2. Old postoperative/posttraumatic changes again noted within the distal femur. ACT 112: Negative or not required by law. Electronically signed by: Talon Cruz M.D. 08/08/2021 3:50 PM
--- NOTE | 2021-08-08 15:57 | XRay Report ---
XR soft tissue neck CLINICAL HISTORY: choking episode COMPARISON STUDY: None. FINDINGS: The contours of the hypopharynx are within normal limits. Prevertebral soft tissues and the epiglottis are normal in thickness. No radiopaque foreign bodies. The trachea is midline and patent. The lung apices are clear. Partially visualized right jugular Port-A-Cath terminates at the SVC. No fractures within the cervical spine. IMPRESSION: Normal neck radiograph. ACT 112: Negative or not required by law. Electronically signed by: Talon Cruz M.D. 08/08/2021 3:55 PM
[2021-08-08 16:16] LABS: Hematocrit (blood only) 31.7 % (37-47); Hemoglobin 10.7 g/dL (12.0-16.0); Mean Corpuscular Hemoglobin 34.1 pg (25-34); Mean Corpuscular Hgb Conc 33.8 g/dL (32-36); RDW Coefficient of Variation 14.2 % (11.5-14.5); Red Blood Count 3.14 M/uL (4.2-5.4); White Blood Count 3.88 K/uL (4.8-10.8)
[2021-08-08 16:26] LABS: Mean Platelet Volume 10.9 fL (7.4-10.4); Platelet Count 89 K/uL (130-400)
[2021-08-08 16:40] LABS: Albumin Globulin Ratio 1.3 (0.9-2); BUN Creatinine Ratio 23.8 (10-20); Bilirubin,Total 1.2 mg/dl (0.2-1.0); Calcium 8.2 mg/dl (8.5-10.1); Creatinine Clr Calc Pharmacy 105.1 ml/min; Globulin 2.4 gm/dl (2.5-4.0); Magnesium 1.6 mg/dl (1.7-2.4); Phosphorus 3.2 mg/dl (2.5-4.9); Potassium 3.9 mmol/L (3.5-5.1); Total Protein 5.4 gm/dl (6.0-8.3)
[2021-08-08 16:41] LABS: Troponin I High Sensitivity 19.9 pg/ml (0-14)
[2021-08-08 16:54] LABS: Basophils # (auto) 0.02 K/uL (0-0.2); Basophils % (auto) 0.5 %; Eosinophils # (auto) 0.11 K/uL (0-0.5); Eosinophils % (auto) 2.8 %; Immature Granulocytes # (auto) 0.03 K/uL (0.00-0.02); Immature Granulocytes % (auto) 0.8 %; Lymphocytes # (auto) 0.93 K/uL (1.2-3.4); Monocytes # (auto) 0.27 K/uL (0.11-0.59); Neutrophils # (auto) 2.52 K/uL (1.4-6.5); Neutrophils % (auto) 64.9 %; RBC Morphology Unremarkable
--- NOTE | 2021-08-08 17:11 | Emergency Department Note ---
Impression & Plan Elevated troponin, Choking episode, Syncope ED Provider Note NAME: CHRISTO SAN AGE: 55 SEX: F ARRIVES VIA: Ambulance INFORMANT: Patient ED PROVIDER(S): Silverio Lemus MD CHIEF COMPLAINT: Choking episode, syncope PLAN: Disposition: Admit MEDICAL DECISION MAKING: The patient is a pleasant 55-year-old woman with a past medical history of chronic lumbar compression fractures, chronic back pain, hepatic encephalopathy with chronically elevated ammonia, cirrhosis, insulin-dependent type 2 diabetes, hypothyroidism, bipolar disorder, depression, seizure disorder, migraines, asthma, GERD who presents to the emergency department via EMS for fainting episode where it was thought she may have choked when she was eating.Prior to today the patient reports she is in her normal state of health and so went out to eat with her and caregiver. Per the 's report the patient was eating salad when the episode occurred. She appears though she could not breathe and briefly lost consciousness where she had spasms of her muscles. Police arrived and administered the Heimlich maneuver for the patient's 's description and then she appeared to have passed what ever it was she was choking on but did not necessarily spit it out. She had recovered but it was recommended she come to emergency department for evaluation. On arrival the patient is chronically ill-appearing but no acute distress, afebrile with blood pressure 170/90s and vital signs otherwise stable. He has chronic baseline tremor/parkinsonism. She is moving all extremities equally. She has mild pain of the right knee with active and passive range of motion. EKG without overt acute ischemia. Chest x-ray negative for acute cardiopu lmonary process. Plain film of the right knee negative for acute process and shows postoperative/posttraumatic changes. WBC 3.8 K nonspecific and similar to prior values. H/H 10.7/317 similar to prior range of values. Platelets 97K also similar to prior range of values in the setting of the patient's cirrhosis. Chemistry without metabolic acidosis. Magnesium 1.6 and otherwise electrolytes without significant abnormality. Total bilirubin 1.2, similar to prior. LFTs otherwise without significant abnormality. Initial high-sensitivity troponin 19, nonspecific. Delta 3-hour repeat high-sensitivity troponin did increase to 75.1 and so given this increase reasonable to proceed with admission. Unclear significance though may reflect strain in the setting of possible brief hypoxia in the setting of her choking/syncope as well as possible cardiac contusion given report of Heimlich maneuver. Case was discussed with TAVARES Serrano admitting resident with [facility] hospitalist, who will evaluate the patient for admission. Covid-19 RNA, NAAT negative. Triage Nursing notes reviewed and agree them. Prior medical records reviewed Vital Signs: reviewed and remarkable for no significant abnormalities Differential diagnosis: Vasovagal event, dehydration, infection, hypoglycemia, electrolyte abnormalities, cardiac sources, intracerebral event, pulmonary embolism, sei zure, toxicologic, neurologic, as well as other pathologies. ER treatment provided: See below. Diagnostics interpreted by me: ECG: Normal sinus rhythm, 73 bpm, no ectopy, no overt ST elevation or depression, QTC 460, QRS 98 Cardiac Monitoring: An order for continuous cardiac monitoring was placed and demonstrated NSR, 73 bpm, no ectopy. Laboratory studies: See below Imaging studies: See below Consultations: TAVARES Serrano admitting resident with [facility] hospitalist HPI: The patient is a pleasant 55-year-old woman with a past medical history of chronic lumbar compression fractures, chronic back pain, hepatic encephalopathy with chronically elevated ammonia, cirrhosis, insulin-dependent type 2 diabetes, hypothyroidism, bipolar disorder, depression, seizure disorder, migraines, asthma, GERD who presents to the emergency department via EMS for fainting episode where it was thought she may have choked when she was eating.Prior to today the patient reports she is in her normal state of health and so went out to eat with her and caregiver. ROS: See above HPI for pertinent positives & negatives. A total of 10 systems reviewed and were otherwise negative. VITALS:See Below PHYSICAL EXAMINATION: GENERAL: Awake, alert, chronically ill-appearing, in no distress HENT: Normocephalic, atraumatic. Oropharynx unremarkable. EYES: Normal conjunctiva. Sclera non-icteric. NECK: Supple. No nuchal rigidity. FROM. No JVD. RESPIRATORY: Clear to auscultation. CARDIAC: Regular rate, normal rhythm. Extremities warm and well perfused. Pulses equal. ABDOMEN: Soft, non-distended. No tenderness to palpation. No rebound or guarding. No masses. RECTAL: Deferred. MUSCULOSKELETAL: Chest examination reveals no tenderness. The back is symmetrical on inspection without obvious abnormality. There is no CVA tenderness to palpation. Mild pain of the right knee with active and passive range of motion. LOWER EXTREMITIES: Calves are equal size bilaterally and non-tender. No edema. No discoloration. NEURO: No focal sensory or motor deficits noted. Baseline tremor. SKIN: No rash or jaundice noted. ED COURSE: Critical Care: I have personally spent greater than 35 minutes of critical care time in the direct management of this patient. This includes bedside care, interpretation of diagnostic studies, and testing, discussion with consultants, patient, and family members, and other required patient management activities. This 35 minutes is in excess of all separately billable procedures. Silverio Lemus MD Past Med/Surg History Medical History Acute alteration in mental status Acute dehydration Acute hepatic encephalopathy Acute hepatic encephalopathy Acute hepatic encephalopathy Altered mental status Depression Hyperammonemia Hyperbilirubinemia Leukopenia Myoclonic seizure "FREQUENT MYOCLONIC SEIZURES" FOLLOWS WITH DR. YANG Nonalcoholic fatty liver disease Parkinsonism Sleepiness Spleen enlargement Thrombocytopenia Urinary tract infection UTI (urinary tract infection) Surgical History Femur fracture, right SPIRAL FRACTURE REPAIRED (HARDWARE REPAIRED) History of ankle surgery RT/LEFT History of appendectomy History of cholecystectomy History of colonoscopy History of esophagogastroduodenoscopy (EGD) History of kyphoplasty History of open reduction and internal fixation (ORIF) procedure RT HIP History of surgery (~06/02/20) screw/plate removal from left humerus History of surgery on arm LEFT (HARDWARE INTACT) History of tooth extraction History of vascular access device right A port Hx of carpal tunnel repair RT/LEFT Hx of cataract extraction RT/LEFT S/P laminectomy lumbar spine S/P nasal surgery nasal bone fracture repair S/P TIFFANIE-BSO (1997) Family History Other Adopted No pertinent family history Social History Smoking Status: Never smoker Tobacco Type: Cigarettes Second Hand Exposure: No; Hx Alcohol Use: No Hx Substance Use: No Preferred Language: Qatari Communication Ability: Effective Visual Impairment: No 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: No Beliefs That Will Affect Care: None marital status: Current Living Situation: Spouse Current Living Situation Comment: Lives with current occupational status: unemployed and disabled How many Children do You have: 0 Feels Safe at Home: Yes Seatbelt Use: always Assistive Devices: Denture - Upper, Denture - Lower and Walker Allergies Allergies Allergy/AdvReac Type Severity Reaction Status Date / Time metoclopramide Allergy Severe SEIZURES Verified 08/08/21 15:33 metronidazole Allergy Severe SEIZURE Verified 08/08/21 15:33 tramadol Allergy Severe SEIZURES Verified 08/08/21 15:33 amoxicillin Allergy Intermediate SEE COMMENT Verified 08/08/21 15:33 baclofen Allergy Intermediate RASH Verified 08/08/21 15:33 butalbital Allergy Intermediate HIVES Verified 08/08/21 15:33 dicyclomine Allergy Intermediate HIVES Verified 08/08/21 15:33 nitrofurantoin Allergy Intermediate HIVES/RASH/SEVERE Verified 08/08/21 15:33 [From Macrobid] ITCHING pollen extracts Allergy Intermediate Hives Verified 08/08/21 15:33 Sulfa (Sulfonamide Allergy Intermediate CAUSES Verified 08/08/21 15:33 Antibiotics) BLACK STOOLS Tetracyclines Allergy Intermediate DOXYCYCLINE Verified 08/08/21 15:33 -HIVES adhesive Allergy Mild RASH, Verified 08/08/21 15:33 DUODERM=RED,ITCHY celecoxib Allergy Mild HIVES Verified 08/08/21 15:33 sulindac Allergy Mild ALLERGY Verified 08/08/21 15:33 LISTED "CLONDORAL"--HIVES Cephalosporins AdvReac Severe TURNS Verified 08/08/21 15:33 STOOL VERY DARK levofloxacin [From Levaquin] AdvReac Severe Vomiting Verified 08/08/21 15:33 paroxetine [From Paxil] AdvReac Severe Vomiting Verified 08/08/21 15:33 dextromethorphan AdvReac Mild Vomiting Verified 08/08/21 15:33 Home Meds Home Medications Medication Instructions Recorded Confirmed multivitamin (Multiple Vitamins) 1 tab PO QDL 12/26/17 08/08/21 lactobacillus combination no.4 3 1 mmu cells PO QDL 09/20/18 08/08/21 billion cell capsule (Probiotic) vitamin A 2,400 mcg capsule 8,000 unit PO QDL 09/20/18 08/08/21 vitamin B complex 1 tab PO QDL 09/20/18 08/08/21 zinc 50 mg tablet 50 mg PO QDL 02/09/19 08/08/21 epinephrine 0.3 mg/0.3 mL 0.3 mg IM Q10M PRN 04/02/19 08/08/21 injection, auto-injector (EpiPen 2-Garret) lecithin 1,200 mg capsule 1,200 mg PO QDL 04/29/19 08/08/21 fexofenadine 60 mg tablet 60 mg PO QAM 04/12/20 08/08/21 cranberry 400 mg capsule 400 mg PO BIDM 06/08/20 08/08/21 ascorbate calcium (vitamin C) 500 500 mg PO QDL 11/16/20 08/08/21 mg tablet vitamin E (dl, acetate) 180 mg 180 mg PO Q OTHER DAY cap 11/16/20 08/08/21 (400 unit) capsule cholecalciferol (vitamin D3) 25 5,000 unit PO QDL cap 11/30/20 08/08/21 mcg (1,000 unit) capsule (Vitamin D3) hydrocortisone 10 mg tablet See Rx Instructions .ROUTE 11/30/20 08/08/21 .COMPLEX tab oxcarbazepine 300 mg tablet See Rx Instructions .ROUTE 11/30/20 08/08/21 .COMPLEX tab pravastatin 20 mg tablet 20 mg PO QAM 12/05/20 08/08/21 escitalopram oxalate 20 mg tablet 20 mg PO QAM 12/29/20 08/08/21 acetaminophen 500 mg tablet 500 mg PO BID PRN 06/22/21 08/08/21 (Tylenol Extra Strength) diclofenac sodium 1 % topical gel 4 g EXT QID PRN 06/22/21 08/08/21 (Voltaren Arthritis Pain) Blue-Emu Cream 1 applic TOPICAL HS 07/22/21 08/08/21 Cognitive Formula 1 tab PO QDL 07/22/21 08/08/21 calcium carbonate 500 mg calcium 500 mg PO QDL 07/22/21 08/08/21 (1,250 mg) tablet Previous Rx's Medication Instructions Recorded topiramate 100 mg tablet 100 mg PO BID #60 tab 05/17/20 albuterol sulfate 90 mcg/actuation 2 puff INHALATION Q4H PRN #1 05/31/20 aerosol inhaler inhaler promethazine 25 mg tablet 25 mg PO Q8H PRN #10 tab 10/11/20 levetiracetam 750 mg tablet 1,500 mg PO BID 30 Days #120 tab 10/30/20 levothyroxine 50 mcg tablet 50 mcg PO QAM #30 tab 11/10/20 (Euthyrox) omeprazole 40 mg capsule,delayed 40 mg PO QAM #90 cap 11/15/20 release magnesium oxide 400 mg (241.3 mg 400 mg PO BID #0 tab 01/02/21 magnesium) tablet melatonin 5 mg tablet 10 mg PO HS #1 tab 01/02/21 ropinirole 0.25 mg tablet 0.25 mg PO BID 90 Days #180 tab 01/10/21 acetaminophen 500 mg tablet 1,000 mg PO HS #0 tab 04/20/21 (Tylenol Extra Strength) jkadkbsiszvikdtsaukjlm-sdnmjcup-limffmyo 2 drops OP HS #0 ml 04/20/21 80 0.5 %-1 %-0.5 % eye drops (Refresh Optive Advanced) pen needle, diabetic 32 gauge x #400 ea 06/26/2132" (BD Ultra-Fine [place] Pen Needle) insulin aspart U-100 100 unit/mL 15 - 25 unit SQ TID #30 ml MDD 60 07/07/21 (3 mL) subcutaneous pen (Novolog units Flexpen U-100 Insulin aspart) insulin degludec 100 unit/mL (3 30 unit SUBCUT QAM #15 ml 07/07/21 mL) subcutaneous pen (Tresiba FlexTouch U-100 insulin) blood sugar diagnostic (OneTouch #50 ea 07/17/21 Verio test strips) galcanezumab-gnlm 120 mg/mL 240 mg SUBCUT ONCE 30 Days #2 ml 07/19/21 subcutaneous pen injector (Emgality Pen) ipratropium 0.5 mg-albuterol 3 mg 3 ml INH QID PRN #90 ml 07/19/21 (2.5 mg base)/3 mL nebulization soln benztropine 1 mg tablet 1 mg PO TID 30 Days #90 tab 07/20/21 teriparatide 20 mcg/dose (620 20 mcg SUBCUT PM #7.44 ml 07/20/21 mcg/2.48 mL) subcutaneous pen injector rifaximin 550 mg tablet (Xifaxan) 550 mg PO BID #60 tab 07/26/21 lactulose 20 gram/30 mL oral 45 ml PO TID #2880 ml 08/02/21 solution Results & Data (ED) Vital Signs Vital Signs - 24 hr 08/08/21 14:49 08/08/21 14:59 08/08/21 15:15 Temperature 37.1 C 37.1 C Temperature Source Oral Oral Pulse Rate 72 78 Pulse Rate [Right Finger] 73 Pulse Rhythm Regular Regular Pulse Rhythm [Right Finger] Regular Pulse Strength Normal Pulse Strength [Right Finger] Normal Respiratory Rate 18 18 17 Respiratory Effort / Characteristics Non-Labored Spontaneous Non-Labored Spontaneous Respiratory Depth Normal Normal Respiratory Pattern Regular Regular Blood Pressure 172/93 H Blood Pressure [Right Arm] 172/93 H Blood Pressure Mean 119 Blood Pressure Mean [Right Arm] 119 Blood Pressure Position Lying Blood Pressure Position [Right Arm] Lying Pulse Oximetry 100 100 97 Oxygen Delivery Method Room Air Room Air Room Air Sepsis Recent Fever Within 48 Hours No Sepsis New/Unexplained Change in Mental Status No Sepsis Action Taken by Nursing No Action Required 08/08/21 18:00 08/08/21 20:11 08/08/21 20:13 Temperature Temperature Source Pulse Rate Pulse Rate [Right Finger] 71 68 Pulse Rhythm Pulse Rhythm [Right Finger] Regular Pulse Strength Pulse Strength [Right Finger] Normal Respiratory Rate 17 18 Respiratory Effort / Characteristics Non-Labored Spontaneous Non-Labored Spontaneous Respiratory Depth Normal Normal Respiratory Pattern Regular Blood Pressure Blood Pressure [Right Arm] 123/61 Blood Pressure Mean Blood Pressure Mean [Right Arm] 81 Blood Pressure Position Blood Pressure Position [Right Arm] Lying Pulse Oximetry 97 100 100 Oxygen Delivery Method Room Air Room Air Room Air Sepsis Recent Fever Within 48 Hours Sepsis New/Unexplained Change in Mental Status Sepsis Action Taken by Nursing Laboratory Data Attestation: I reviewed the patient's lab results. Result diagrams: 08/08/21 15:56 08/08/21 15:56 Lab Results 08/08/21 08/08/21 08/08/21 Range/Units 15:56 15:56 15:59 WBC 3.88 L (4.8-10.8) K/uL RBC 3.14 L (4.2-5.4) M/uL Hgb 10.7 L (12.0-16.0) g/dL Hct 31.7 L (37-47) % MCV 101.0 H (80-100) fL MCH 34.1 H (25-34) pg MCHC 33.8 (32-36) g/dL RDW Std Deviation 52.0 H (36.4-46.3) fL RDW Coeff of Irina 14.2 (11.5-14.5) % Plt Count 89 L (130-400) K/uL MPV 10.9 H (7.4-10.4) fL Immature Gran % (Auto) 0.8 % Neut % (Auto) 64.9 % Lymph % (Auto) 24.0 % Mchenry % (Auto) 7.0 % Eos % (Auto) 2.8 % Baso % (Auto) 0.5 % Neut # (Auto) 2.52 (1.4-6.5) K/uL Lymph # (Auto) 0.93 L (1.2-3.4) K/uL Mchenry # (Auto) 0.27 (0.11-0.59) K/uL Eos # (Auto) 0.11 (0-0.5) K/uL Baso # (Auto) 0.02 (0-0.2) K/uL Immature Gran # (Auto) 0.03 H (0.00-0.02) K/uL RBC Morphology Unremarkable Sodium 141 (136-145) mmol/L Potassium 3.9 (3.5-5.1) mmol/L Chloride 114 H (98-107) mmol/L Carbon Dioxide 22 (21-32) mmol/L Anion Gap 5 (3-11) BUN 15 (6-23) mg/dl Creatinine 0.63 (0.6-1.2) mg/dl Est Cr Clr Drug Dosing 105.1 ml/min Est GFR ( Amer) 117.0 ml/min Est GFR (Non-Af Amer) 101.0 ml/min BUN/Creatinine Ratio 23.8 H (10-20) Glucose 202 H (70-99(Fasting)) mg/dl POC Glucose 237 H (70-99) mg/dl Calcium 8.2 L (8.5-10.1) mg/dl Phosphorus 3.2 (2.5-4.9) mg/dl Magnesium 1.6 L (1.7-2.4) mg/dl Total Bilirubin 1.2 H (0.2-1.0) mg/dl AST 36 (13-39) U/L ALT 30 (7-52) U/L Alkaline Phosphatase 154 H (34-104) U/L Troponin I High Sens 19.9 H D (0-14) pg/ml Total Protein 5.4 L (6.0-8.3) gm/dl Albumin 3.0 L (3.4-5.0) gm/dl Globulin 2.4 L (2.5-4.0) gm/dl Albumin/Globulin Ratio 1.3 (0.9-2) SARS-CoV-2, RNA, NAAT (NEGATIVE) 08/08/21 08/08/21 08/08/21 Range/Units 19:33 20:30 21:07 WBC (4.8-10.8) K/uL RBC (4.2-5.4) M/uL Hgb (12.0-16.0) g/dL Hct (37-47) % MCV (80-100) fL MCH (25-34) pg MCHC (32-36) g/dL RDW Std Deviation (36.4-46.3) fL RDW Coeff of Irina (11.5-14.5) % Plt Count (130-400) K/uL MPV (7.4-10.4) fL Immature Gran % (Auto) % Neut % (Auto) % Lymph % (Auto) % Mchenry % (Auto) % Eos % (Auto) % Baso % (Auto) % Neut # (Auto) (1.4-6.5) K/uL Lymph # (Auto) (1.2-3.4) K/uL Mchenry # (Auto) (0.11-0.59) K/uL Eos # (Auto) (0-0.5) K/uL Baso # (Auto) (0-0.2) K/uL Immature Gran # (Auto) (0.00-0.02) K/uL RBC Morphology Sodium (136-145) mmol/L Potassium (3.5-5.1) mmol/L Chloride (98-107) mmol/L Carbon Dioxide (21-32) mmol/L Anion Gap (3-11) BUN (6-23) mg/dl Creatinine (0.6-1.2) mg/dl Est Cr Clr Drug Dosing ml/min Est GFR ( Amer) ml/min Est GFR (Non-Af Amer) ml/min BUN/Creatinine Ratio (10-20) Glucose (70-99(Fasting)) mg/dl POC Glucose 59 L* (70-99) mg/dl Calcium (8.5-10.1) mg/dl Phosphorus (2.5-4.9) mg/dl Magnesium (1.7-2.4) mg/dl Total Bilirubin (0.2-1.0) mg/dl AST (13-39) U/L ALT (7-52) U/L Alkaline Phosphatase (34-104) U/L Troponin I High Sens 75.1 H* D (0-14) pg/ml Total Protein (6.0-8.3) gm/dl Albumin (3.4-5.0) gm/dl Globulin (2.5-4.0) gm/dl Albumin/Globulin Ratio (0.9-2) SARS-CoV-2, RNA, NAAT NEGATIVE (NEGATIVE) Administered Medications Discontinued Medications Sodium Chloride (Nss) 500 mls @ 999 mls/hr IV .Q31M ONE Stop: 08/08/21 15:46 Last Infusion: 08/08/21 18:09 Dose: 0 mls/hr Documented by: [id number] Admin: 08/08/21 16:36 Dose: 999 mls/hr Documented by: [id number] Magnesium Sulfate/Dextrose (Magnesium Sulfate / D5w) 1 gm in 100 mls @ 100 mls/hr IV NOW STA Stop: 08/08/21 18:39 Last Infusion: 08/08/21 19:10 Dose: 0 mls/hr Documented by: [id number] Admin: 08/08/21 18:08 Dose: 100 mls/hr Documented by: [id number] Imaging Data Radiologist's Impression: Soft Tissue Neck X-Ray 08/08/21 15:14 XR soft tissue neck CLINICAL HISTORY: choking episode COMPARISON STUDY: None. FINDINGS: The contours of the hypopharynx are within normal limits. Prevertebral soft tissues and the epiglottis are normal in thickness. No radiopaque foreign bodies. The trachea is midline and patent. The lung apices are clear. Partially visualized right jugular Port-A-Cath terminates at the SVC. No fractures within the cervical spine. IMPRESSION: Normal neck radiograph. ACT 112: Negative or not required by law. Electronically signed by: Talon Cruz M.D. 08/08/2021 3:55 PM Chest X-Ray 08/08/21 15:15 SINGLE VIEW CHEST CLINICAL HISTORY: Atypical chest pain. FINDINGS: An AP, portable, supine chest radiograph is compared to study dated 08/01/2021. A right internal jugular central venous infusion port is unchanged in position. The heart is enlarged. The pulmonary vasculature is noncongested. Atelectasis is noted at the lung bases. No airspace consolidation or large pleural effusion is identified. No pneumothorax is seen. The skeletal structures are osteopenic. The bony thorax is grossly intact. Degenerative change is noted in the shoulders. Cholecystectomy clips are seen in the right upper quadrant. IMPRESSION: Cardiomegaly with no active disease in the chest. ACT 112: Negative or not required by law. Electronically signed by: Aiden Randolph M.D. 08/08/2021 3:48 PM Knee X-Ray 08/08/21 15:16 XR knee RT 1 or 2V routine CLINICAL HISTORY: Right knee pain. COMPARISON STUDY: Right knee 07/17/2021. FINDINGS: No acute fracture or dislocation within the right knee. No significant knee effusion. Old postoperative/posttraumatic changes again noted within the distal femur including antibiotic cement beads. This remains unchanged. Mild osteoporosis within the medial compartment of the knee. No significant soft tissue swelling. IMPRESSION: 1. No acute fracture or dislocation within the right knee. 2. Old postoperative/posttraumatic changes again noted within the distal femur. ACT 112: Negative or not required by law. Electronically signed by: Talon Cruz M.D. 08/08/2021 3:50 PM Discharge Plan Visit Data Chief Complaint: Choking Discharge Problem: Elevated troponin, Choking episode, Syncope Forms Stand Alone Forms: [employer] Prescriptions Prescriptions: No Action topiramate 100 mg tablet 100 mg PO BID Qty: 60 RF: 5 albuterol sulfate 90 mcg/actuation HFA aerosol inhaler 2 puff inhalation Q4H PRN (Reason: shortness of breath) Qty: 1 RF: 3 levothyroxine [Euthyrox] 50 mcg tablet 50 mcg PO QAM Qty: 30 RF: 2 omeprazole 40 mg capsule,delayed release(DR/EC) 40 mg PO QAM Qty: 90 RF: 1 ropinirole 0.25 mg tablet 0.25 mg PO BID 90 Days Qty: 180 RF: 1 (DME) pen needle, diabetic [BD Ultra-Fine [place] Pen Needle] 32 gauge x 5/32" needle See Rx Instructions .Route Qty: 400 RF: 3 insulin aspart U-100 [Novolog Flexpen U-100 Insulin] 100 unit/mL (3 mL) insulin pen 15 - 25 unit SQ TID MDD 60 units Qty: 30 RF: 5 Tresiba FlexTouch U-100 100 unit/mL (3 mL) insulin pen 30 unit subcut QAM Qty: 15 RF: 1 ipratropium-albuterol 0.5 mg-3 mg(2.5 mg base)/3 mL solution for nebulization 3 ml INH QID PRN (Reason: wheezing) Qty: 90 RF: 0 teriparatide 20 mcg/dose (620mcg/2.48mL) pen injector 20 mcg subcut PM Qty: 7.44 RF: 0 benztropine 1 mg tablet 1 mg PO TID 30 Days Qty: 90 RF: 5 Xifaxan 550 mg tablet 550 mg PO BID Qty: 60 RF: 5 levetiracetam 750 mg tablet 1,500 mg PO BID 30 Days Qty: 120 RF: 5 cholecalciferol (vitamin D3) [Vitamin D3] 25 mcg (1,000 unit) capsule 5,000 unit PO QDL RF: 0 promethazine 25 mg tablet 25 mg PO Q8H PRN (Reason: nausea and vomiting) Qty: 10 RF: 0 ascorbate calcium (vitamin C) 500 mg tablet 500 mg PO QDL RF: 0 vitamin E (dl, acetate) 180 mg (400 unit) capsule 180 mg PO Q OTHER DAY RF: 0 (DME) OneTouch Verio test strips Strip See Rx Instructions .Route Qty: 50 RF: 5 epinephrine [EpiPen 2-Garret] 0.3 mg/0.3 mL auto-injector 0.3 mg IM Q10M PRN (Reason: Anaphylaxis) RF: 0 lecithin 1,200 mg capsule 1,200 mg PO QDL RF: 0 cranberry 400 mg capsule 400 mg PO BIDM RF: 0 Emgality Pen 120 mg/mL pen injector 240 mg subcut ONCE 30 Days Qty: 2 RF: 0 multivitamin [Multiple Vitamins] Tablet 1 tab PO QDL RF: 0 zinc 50 mg Tablet 50 mg PO QDL RF: 0 vitamin A 8,000 unit Capsule 8,000 unit PO QDL RF: 0 vitamin B complex Tablet 1 tab PO QDL RF: 0 Probiotic 3 billion cell Capsule 1 mmu cells PO QDL RF: 0 fexofenadine 60 mg Tablet 60 mg PO QAM RF: 0 hydrocortisone 10 mg tablet See Rx Instructions .ROUTE .COMPLEX RF: 0 oxcarbazepine 300 mg tablet See Rx Instructions .ROUTE .COMPLEX RF: 0 calcium carbonate 500 mg calcium (1,250 mg) Tablet 500 mg PO QDL RF: 0 Blue-Emu Cream 1 applic topical HS RF: 0 Cognitive Formula 1 tab PO QDL RF: 0 lactulose 20 gram/30 mL solution 45 ml PO TID Qty: 2880 RF: 1 pravastatin 20 mg tablet 20 mg PO QAM RF: 0 escitalopram oxalate 20 mg tablet 20 mg PO QAM RF: 0 melatonin 5 mg tablet 10 mg PO HS Qty: 1 RF: 0 magnesium oxide 400 mg (241.3 mg magnesium) tablet 400 mg PO BID Qty: 0 RF: 0 acetaminophen [Tylenol Extra Strength] 500 mg Tablet 1,000 mg PO HS Qty: 0 RF: 0 Refresh Optive Advanced 0.5-1-0.5 % drops 2 drops OP HS Qty: 0 RF: 0 acetaminophen [Tylenol Extra Strength] 500 mg tablet 500 mg PO BID PRN (Reason: Pain) RF: 0 diclofenac sodium [Voltaren Arthritis Pain] 1 % gel 4 g EXT QID PRN (Reason: Pain) RF: 0 Referrals Referrals: Mo Griggs MD [Primary Care Provider] -
[2021-08-08] MEDS ORDERED: MAGNESIUM SULFATE / D5W 1 GM/100 ML BAG IV STA (17:40)
[2021-08-08] MEDS ORDERED: DICLOFENAC SOD 1% GEL 100 GM TUBE EXT PRN (23:55)
--- NOTE | 2021-08-09 00:09 | History & Physical Report ---
Date of Service August 08, 2021 Assessment & Plan (1) Elevated troponin: Plan: 55-year-old woman with medical history of hyperammonemia, hepatic encephalopathy, parkinsonism, type 2 diabetes, GERD, and depression, who presented to the ED for choking, and was admitted for elevated repeat troponin labs. Elevated troponin -Likely secondary to chest bruising/contusion following Heimlich maneuver for choking. -Troponin already downtrending, currently at 56.3, down from 75.1. Patient otherwise stable -Likely discharge in the morning, pending: * speech and swallow evaluation. * Follow next troponin lab, at 6 AM tomorrow. Hyperammonemia * Lactulose 45 mL 3 times daily Seizure/parkinsonism Continue home regimen: * Ropinirole 0.25 mg twice daily * Topiramate 100 mg 3 times daily * Keppra 1500 mg twice daily * Benztropine 1 mg 3 times daily Other chronic problems: Holding home regimen, unless patient is not discharged after speech and swallow evaluation. Code: Full Dispo: Med-Surg telemetry FEN/GI: NPO until speech and swallow evaluation DVT Prophylaxis: None (2) Choking episode: (3) Hyperammonemia: (4) Depression: (5) Dyslipidemia: (6) Parkinsonism: Admission and Anticipated Discharge Date Admission Date: August 08, 2021 History of Present Illness Chief Complaint: Choking Primary Care Provider: MD Marcelle Martin is a 55 year old woman who presented to the emergency room via ambulance after choking on on a salad while at the [employer]. She has a complicated medical history, including hepatic encephalopathy, hyperammonemia, type 2 diabetes, parkinsonism, and dyslipidemia. After choking, she became unconscious and was the recipient of the Heimlich maneuver, which resolved the choking. However, she continued to experience chest and epigastric pain in the restaurant and was brought, via ambulance, to the emergency room. ED course was notable for mildly elevated high-sensitivity troponin of 19.9. The rest of her labs were mostly normal. Subjectively, other than a complaint of chest and epigastric pain secondary to the bruising from the maneuver, she had no acute complaints, and remained stable throughout her stay in the emergency room. The next troponin, drawn approximately 3-1/2 hours later, was elevated at 75.1, prompting admission for further monitoring. Allergies Allergy/AdvReac Type Severity Reaction Status Date / Time metoclopramide Allergy Severe SEIZURES Verified 08/08/21 15:33 metronidazole Allergy Severe SEIZURE Verified 08/08/21 15:33 tramadol Allergy Severe SEIZURES Verified 08/08/21 15:33 amoxicillin Allergy Intermediate SEE COMMENT Verified 08/08/21 15:33 baclofen Allergy Intermediate RASH Verified 08/08/21 15:33 butalbital Allergy Intermediate HIVES Verified 08/08/21 15:33 dicyclomine Allergy Intermediate HIVES Verified 08/08/21 15:33 nitrofurantoin Allergy Intermediate HIVES/RASH/SEVERE Verified 08/08/21 15:33 [From Macrobid] ITCHING pollen extracts Allergy Intermediate Hives Verified 08/08/21 15:33 Sulfa (Sulfonamide Allergy Intermediate CAUSES Verified 08/08/21 15:33 Antibiotics) BLACK STOOLS Tetracyclines Allergy Intermediate DOXYCYCLINE Verified 08/08/21 15:33 -HIVES adhesive Allergy Mild RASH, Verified 08/08/21 15:33 DUODERM=RED,ITCHY celecoxib Allergy Mild HIVES Verified 08/08/21 15:33 sulindac Allergy Mild ALLERGY Verified 08/08/21 15:33 LISTED "CLONDORAL"--HIVES Cephalosporins AdvReac Severe TURNS Verified 08/08/21 15:33 STOOL VERY DARK paroxetine [From Paxil] AdvReac Severe Vomiting Verified 08/08/21 15:33 dextromethorphan AdvReac Mild Vomiting Verified 08/08/21 15:33 Home Medications Medication Instructions Recorded Confirmed Type multivitamin (Multiple Vitamins) 1 tab PO QDL 12/26/17 08/08/21 History lactobacillus combination no.4 3 1 mmu cells PO QDL 09/20/18 08/08/21 History billion cell capsule (Probiotic) vitamin A 2,400 mcg capsule 8,000 unit PO QDL 09/20/18 08/08/21 History vitamin B complex 1 tab PO QDL 09/20/18 08/08/21 History zinc 50 mg tablet 50 mg PO QDL 02/09/19 08/08/21 History epinephrine 0.3 mg/0.3 mL 0.3 mg IM Q10M PRN 04/02/19 08/08/21 History injection, auto-injector (EpiPen 2-Garret) lecithin 1,200 mg capsule 1,200 mg PO QDL 04/29/19 08/08/21 History fexofenadine 60 mg tablet 60 mg PO QAM 04/12/20 08/08/21 History topiramate 100 mg tablet 100 mg PO BID #60 tab 05/17/20 08/08/21 Rx albuterol sulfate 90 mcg/actuation 2 puff INHALATION Q4H PRN #1 05/31/20 Rx aerosol inhaler inhaler cranberry 400 mg capsule 400 mg PO BIDM 06/08/20 08/08/21 History promethazine 25 mg tablet 25 mg PO Q8H PRN #10 tab 10/11/20 08/08/21 Rx levetiracetam 750 mg tablet 1,500 mg PO BID 30 Days #120 tab 10/30/20 08/08/21 Rx levothyroxine 50 mcg tablet 50 mcg PO QAM #30 tab 11/10/20 08/08/21 Rx (Euthyrox) omeprazole 40 mg capsule,delayed 40 mg PO QAM #90 cap 11/15/20 08/08/21 Rx release ascorbate calcium (vitamin C) 500 500 mg PO QDL 11/16/20 08/08/21 History mg tablet vitamin E (dl, acetate) 180 mg 180 mg PO Q OTHER DAY cap 11/16/20 08/08/21 History (400 unit) capsule cholecalciferol (vitamin D3) 25 5,000 unit PO QDL cap 11/30/20 08/08/21 History mcg (1,000 unit) capsule (Vitamin D3) hydrocortisone 10 mg tablet See Rx Instructions .ROUTE 11/30/20 08/08/21 History .COMPLEX tab oxcarbazepine 300 mg tablet See Rx Instructions .ROUTE 11/30/20 08/08/21 History .COMPLEX tab pravastatin 20 mg tablet 20 mg PO QAM 12/05/20 08/08/21 History escitalopram oxalate 20 mg tablet 20 mg PO QAM 12/29/20 08/08/21 History magnesium oxide 400 mg (241.3 mg 400 mg PO BID #0 tab 01/02/21 08/08/21 Rx magnesium) tablet melatonin 5 mg tablet 10 mg PO HS #1 tab 01/02/21 08/08/21 Rx ropinirole 0.25 mg tablet 0.25 mg PO BID 90 Days #180 tab 01/10/21 08/08/21 Rx acetaminophen 500 mg tablet 1,000 mg PO HS #0 tab 04/20/21 08/08/21 Rx (Tylenol Extra Strength) nyclggnjmeocikihzfgnua-elxwpqpo-dngbdgah 2 drops OP HS #0 ml 04/20/21 08/08/21 Rx 80 0.5 %-1 %-0.5 % eye drops (Refresh Optive Advanced) acetaminophen 500 mg tablet 500 mg PO BID PRN 06/22/21 08/08/21 History (Tylenol Extra Strength) diclofenac sodium 1 % topical gel 4 g EXT QID PRN 06/22/21 08/08/21 History (Voltaren Arthritis Pain) pen needle, diabetic 32 gauge x #400 ea 06/26/21 07/19/21 Rx " (BD Ultra-Fine Sheridan Pen Needle) insulin aspart U-100 100 unit/mL 15 - 25 unit SQ TID #30 ml MDD 60 07/07/21 08/08/21 Rx (3 mL) subcutaneous pen (Novolog units Flexpen U-100 Insulin aspart) insulin degludec 100 unit/mL (3 30 unit SUBCUT QAM #15 ml 07/07/21 08/08/21 Rx mL) subcutaneous pen (Tresiba FlexTouch U-100 insulin) blood sugar diagnostic (OneTouch #50 ea 07/17/21 07/19/21 Rx Verio test strips) galcanezumab-gnlm 120 mg/mL 240 mg SUBCUT ONCE 30 Days #2 ml 07/19/21 08/08/21 Rx subcutaneous pen injector (Emgality Pen) ipratropium 0.5 mg-albuterol 3 mg 3 ml INH QID PRN #90 ml 07/19/21 08/08/21 Rx (2.5 mg base)/3 mL nebulization soln benztropine 1 mg tablet 1 mg PO TID 30 Days #90 tab 07/20/21 08/08/21 Rx teriparatide 20 mcg/dose (620 20 mcg SUBCUT PM #7.44 ml 07/20/21 08/08/21 Rx mcg/2.48 mL) subcutaneous pen injector Blue-Emu Cream 1 applic TOPICAL HS 07/22/21 08/08/21 History Cognitive Formula 1 tab PO QDL 07/22/21 08/08/21 History calcium carbonate 500 mg calcium 500 mg PO QDL 07/22/21 08/08/21 History (1,250 mg) tablet rifaximin 550 mg tablet (Xifaxan) 550 mg PO BID #60 tab 07/26/21 08/08/21 Rx lactulose 20 gram/30 mL oral 45 ml PO TID #2880 ml 08/02/21 08/08/21 Rx solution ciprofloxacin HCl 250 mg tablet 250 mg PO BID 7 Days #13 tab 08/09/21 Rx Past Med/Surg History Medical History Acute alteration in mental status Acute dehydration Acute hepatic encephalopathy Acute hepatic encephalopathy Acute hepatic encephalopathy Altered mental status Depression Hyperammonemia Hyperbilirubinemia Leukopenia Myoclonic seizure "FREQUENT MYOCLONIC SEIZURES" FOLLOWS WITH DR. YANG Nonalcoholic fatty liver disease Parkinsonism Sleepiness Spleen enlargement Thrombocytopenia Urinary tract infection UTI (urinary tract infection) Surgical History Femur fracture, right SPIRAL FRACTURE REPAIRED (HARDWARE REPAIRED) History of ankle surgery RT/LEFT History of appendectomy History of cholecystectomy History of colonoscopy History of esophagogastroduodenoscopy (EGD) History of kyphoplasty History of open reduction and internal fixation (ORIF) procedure RT HIP History of surgery (~06/02/20) screw/plate removal from left humerus History of surgery on arm LEFT (HARDWARE INTACT) History of tooth extraction History of vascular access device right A port Hx of carpal tunnel repair RT/LEFT Hx of cataract extraction RT/LEFT S/P laminectomy lumbar spine S/P nasal surgery nasal bone fracture repair S/P TIFFANIE-BSO (1997) Family History Other Adopted No pertinent family history Social History Smoking Status: Never smoker Tobacco Type: Cigarettes Second Hand Exposure: No; Hx Alcohol Use: No Hx Substance Use: No Preferred Language: Greenlandic Communication Ability: Effective Visual Impairment: No Limitations Grout Worker Required: No Beliefs That Will Affect Care: None marital status: Current Living Situation: Spouse Current Living Situation Comment: Lives with current occupational status: unemployed and disabled How many Children do You have: 0 Other Information That Helps Us Care for You: No Feels Safe at Home: Yes Safety Concerns: Feels Safe At This Time Seatbelt Use: always Assistive Devices: Walker and Wheelchair Review of Systems Review of Systems: All systems reviewed & are unremarkable except as noted in HPI & below Cardiovascular: + chest pain Gastrointestinal: + abdominal pain Physical Exam Physical Exam: General: Patient is AAO x3 and in no acute distress. HEENT: Non-erythematous oropharynx; no lymphadenopathy; normal dentition. CV: Regular rate and rhythm. Normal S1 and S2. No murmurs gallops or rubs. No pedal edema. Pulmonary: Lungs are clear to auscultation bilaterally. No crackles, rhonchi, or wheezes. Abdomen: Large, distended abdomen. No bruits heard on auscultation. Midepigastric tenderness to deep palpation. No guarding or rebound. Neuro: Resting tremor, most notable in the head and neck. Psych: Congruent mood and affect. Results & Data Results & Data ([facility]) Vital Signs (Past 12 Hours) Vital Signs Temp Pulse Pulse Resp BP BP Pulse Ox 08/08/21 22:45 64 17 131/86 98 08/08/21 20:13 100 08/08/21 20:11 68 18 123/61 100 08/08/21 18:00 71 17 97 08/08/21 15:15 78 17 97 08/08/21 14:59 37.1 C 73 18 172/93 H 100 08/08/21 14:49 37.1 C 72 18 172/93 H 100 Code Status & VTE Plan VTE Prophylaxis Plan VTE Prophylaxis will be ordered: Yes Supervising Physician Co-Signing Physician Notes Attending addendum: I have physically seen this patient, have supervised the medical residents activities, and agree with the H&P unless as otherwise noted. Assessment and Plan: Elevated troponin- Secondary to contusion associated with Heimlich maneuver The patient will be admitted to telemetry for serial cardiac enzymes, serial EKG's, cardiac rhythm monitoring Reported choking episode with syncope- Speech assessment as noted Continue other orders and medications as noted Resident Activity Tracking Resident Involvement: Resident Care Provided Care Provided: [facility]
[2021-08-09] MEDS: levETIRAcetam 500 MG TAB PO SCH ×2 (00:48→08:52)
[2021-08-09] MEDS: MAGNESIUM OXIDE 400 MG TAB PO SCH ×2 (00:48→08:52)
[2021-08-09] MEDS ORDERED: LEVOTHYROXINE SODIUM 50 MCG TABLET PO SCH (06:30)
--- NOTE | 2021-08-09 06:54 | Discharge Summary ---
Date of Service August 09, 2021 Admission HPI Per Admitting Provider Marcelle is a 55 year old woman who presented to the emergency room via ambulance after choking on on a salad while at the [employer]. She has a complicated medical history, including hepatic encephalopathy, hyperammonemia, type 2 diabetes, parkinsonism, and dyslipidemia. After choking, she became unconscious and was the recipient of the Heimlich maneuver, which resolved the choking. However, she continued to experience chest and epigastric pain in the restaurant and was brought, via ambulance, to the emergency room. ED course was notable for mildly elevated high-sensitivity troponin of 19.9. The rest of her labs were mostly normal. Subjectively, other than a complaint of chest and epigastric pain secondary to the bruising from the maneuver, she had no acute complaints, and remained stable throughout her stay in the emergency room. The next troponin, drawn approximately 3-1/2 hours later, was elevated at 75.1, prompting admission for further monitoring. Admission Exam Per Admitting Provider General: Patient is AAO x3 and in no acute distress. HEENT: Non-erythematous oropharynx; no lymphadenopathy; normal dentition. CV: Regular rate and rhythm. Normal S1 and S2. No murmurs gallops or rubs. No pedal edema. Pulmonary: Lungs are clear to auscultation bilaterally. No crackles, rhonchi, or wheezes. Abdomen: Large, distended abdomen. No bruits heard on auscultation. Midepigastric tenderness to deep palpation. No guarding or rebound. Neuro: Resting tremor, most notable in the head and neck. Psych: Congruent mood and affect. Principal Diagnosis choking episode. urinary tract infection Discharge Exam General: Grossly A&O. NAD. Cooperative. Answering questions. HEENT: Atraumatic, normocephalic. EOMI Pulm: CTAB. -wheezes, -rales, -rhonchi. Symmetrical chest rise. No respiratory distress. Cardiac: RRR, -mrg. No LE edema. Abdominal: Mild diffuse abd ttp. Nondistended, soft. Discharge Data Allergies Allergy/AdvReac Type Severity Reaction Status Date / Time metoclopramide Allergy Severe SEIZURES Verified 08/08/21 15:33 metronidazole Allergy Severe SEIZURE Verified 08/08/21 15:33 tramadol Allergy Severe SEIZURES Verified 08/08/21 15:33 amoxicillin Allergy Intermediate SEE COMMENT Verified 08/08/21 15:33 baclofen Allergy Intermediate RASH Verified 08/08/21 15:33 butalbital Allergy Intermediate HIVES Verified 08/08/21 15:33 dicyclomine Allergy Intermediate HIVES Verified 08/08/21 15:33 nitrofurantoin Allergy Intermediate HIVES/RASH/SEVERE Verified 08/08/21 15:33 [From Macrobid] ITCHING pollen extracts Allergy Intermediate Hives Verified 08/08/21 15:33 Sulfa (Sulfonamide Allergy Intermediate CAUSES Verified 08/08/21 15:33 Antibiotics) BLACK STOOLS Tetracyclines Allergy Intermediate DOXYCYCLINE Verified 08/08/21 15:33 -HIVES adhesive Allergy Mild RASH, Verified 08/08/21 15:33 DUODERM=RED,ITCHY celecoxib Allergy Mild HIVES Verified 08/08/21 15:33 sulindac Allergy Mild ALLERGY Verified 08/08/21 15:33 LISTED "CLONDORAL"--HIVES Cephalosporins AdvReac Severe TURNS Verified 08/08/21 15:33 STOOL VERY DARK paroxetine [From Paxil] AdvReac Severe Vomiting Verified 08/08/21 15:33 dextromethorphan AdvReac Mild Vomiting Verified 08/08/21 15:33 Consultations 08/08/21 20:38 ED Decision to Admit Stat Ordered Studies Cardiac Enzymes 08/08/21 08/08/21 08/08/21 Range/Units 15:56 19:33 22:29 AST 36 (13-39) U/L Troponin I High Sens 19.9 H D 75.1 H* D 56.3 H* D (0-14) pg/ml 08/09/21 Range/Units 05:58 AST (13-39) U/L Troponin I High Sens 25.5 H D (0-14) pg/ml CBC 08/08/21 Range/Units 15:56 WBC 3.88 L (4.8-10.8) K/uL RBC 3.14 L (4.2-5.4) M/uL Hgb 10.7 L (12.0-16.0) g/dL Hct 31.7 L (37-47) % Plt Count 89 L (130-400) K/uL Neut # (Auto) 2.52 (1.4-6.5) K/uL Lymph # (Auto) 0.93 L (1.2-3.4) K/uL [place] # (Auto) 0.27 (0.11-0.59) K/uL Eos # (Auto) 0.11 (0-0.5) K/uL Baso # (Auto) 0.02 (0-0.2) K/uL Comprehensive Metabolic Panel 08/08/21 Range/Units 15:56 Sodium 141 (136-145) mmol/L Potassium 3.9 (3.5-5.1) mmol/L Chloride 114 H (98-107) mmol/L Carbon Dioxide 22 (21-32) mmol/L BUN 15 (6-23) mg/dl Creatinine 0.63 (0.6-1.2) mg/dl Glucose 202 H (70-99(Fasting)) mg/dl Calcium 8.2 L (8.5-10.1) mg/dl AST 36 (13-39) U/L ALT 30 (7-52) U/L Alkaline Phosphatase 154 H (34-104) U/L Total Protein 5.4 L (6.0-8.3) gm/dl Albumin 3.0 L (3.4-5.0) gm/dl Intake and Output 08/08/21 08/09/21 08/09/21 22:59 06:59 14:59 Intake Total 600 / 720 120 / 720 300 / 300 Output Total 501 / 501 Balance 600 / 219 -381 / 219 300 / 300 Intake: IV 600 / 600 300 / 300 Ciprofloxacin / D5w 400 mg In 200 / 200 200 ml @ 100 mls/hr IV Q12H [facility] Rx#:[id number] Magnesium Sulfate / D5w 1 gm In 100 / 100 100 / 100 100 ml @ 50 mls/hr IV Q2H [facility] Rx#:[id number] Sodium Chloride 0.9% 500 ml @ 500 / 500 999 mls/hr IV .Q31M ONE Rx#: [id number] Oral 120 / 120 Output: Urine 500 / 500 # Bowel Movements / Other: # Unmeasured Voids 1 Weight 80.9 kg 80.9 kg Weight Measurement Method Built in [facility] Patient Weight 08/10/21 06:59 Weight 80.9 kg Soft Tissue Neck X-Ray 08/08/21 15:14 XR soft tissue neck CLINICAL HISTORY: choking episode COMPARISON STUDY: None. FINDINGS: The contours of the hypopharynx are within normal limits. Prevertebral soft tissues and the epiglottis are normal in thickness. No radiopaque foreign bodies. The trachea is midline and patent. The lung apices are clear. Partially visualized right jugular Port-A-Cath terminates at the SVC. No fractures within the cervical spine. IMPRESSION: Normal neck radiograph. ACT 112: Negative or not required by law. Electronically signed by: Talon Cruz M.D. 08/08/2021 3:55 PM Chest X-Ray 08/08/21 15:15 SINGLE VIEW CHEST CLINICAL HISTORY: Atypical chest pain. FINDINGS: An AP, portable, supine chest radiograph is compared to study dated 08/01/2021. A right internal jugular central venous infusion port is unchanged in position. The heart is enlarged. The pulmonary vasculature is noncongested. Atelectasis is noted at the lung bases. No airspace consolidation or large pleural effusion is identified. No pneumothorax is seen. The skeletal structures are osteopenic. The bony thorax is grossly intact. Degenerative change is noted in the shoulders. Cholecystectomy clips are seen in the right upper quadrant. IMPRESSION: Cardiomegaly with no active disease in the chest. ACT 112: Negative or not required by law. Electronically signed by: Aiden Randolph M.D. 08/08/2021 3:48 PM Knee X-Ray 08/08/21 15:16 XR knee RT 1 or 2V routine CLINICAL HISTORY: Right knee pain. COMPARISON STUDY: Right knee 07/17/2021. FINDINGS: No acute fracture or dislocation within the right knee. No significant knee effusion. Old postoperative/posttraumatic changes again noted within the distal femur including antibiotic cement beads. This remains unchanged. Mild osteoporosis within the medial compartment of the knee. No significant soft tissue swelling. IMPRESSION: 1. No acute fracture or dislocation within the right knee. 2. Old postoperative/posttraumatic changes again noted within the distal femur. ACT 112: Negative or not required by law. Electronically signed by: Talon Cruz M.D. 08/08/2021 3:50 PM Hospital Course (1) Elevated troponin: 55-year-old woman with medical history of hyperammonemia, hepatic encephalopathy, parkinsonism, type 2 diabetes, GERD, and depression, who presented to the ED for choking, and was admitted for observation. She was subsequently treated for urinary tract infection that failed outpatient therapy. Choking episode -Resolved, s/p Heimlich performed by emergency responders -Patient had some pains of her trunk: XR soft tissue neck, XR thoracic spine, and XR ribs neg for fracture -Passed speech eval: Recommends minced and moist diet consistency, thin liquids. She does not need thickened liquids. Avoid harder foods and choose softer and moister foods. Acute urinary tract infection -1 week of dysuria and urinary frequency. Started on PO Keflex as outpatient on 08/06/21. Per outpatient urine culture sensitivities, MDR Klebsiella including to most cephalosporins. Repeat urine culture pending. -Patient to complete 7 days total of BID 250mg PO ciprofloxacin. This was chosen after discussion of antibiotic allergies w/ patient. She has previously tolerated cipro and levo. She does not tolerate bactrim and nitrofurantoin. Elevated troponin -Likely secondary to chest bruising/contusion following Heimlich maneuver for choking. -Peaked at 75.1 Hyperammonemia -Continue home lactulose Seizure/parkinsonism Continue home regimen: * Ropinirole 0.25 mg twice daily * Topiramate 100 mg 3 times daily * Keppra 1500 mg twice daily * Benztropine 1 mg 3 times daily HLD, depression, diabetes: continue home regimen code status this admission: full code (2) Choking episode: (3) Hyperammonemia: (4) Depression: (5) Dyslipidemia: (6) Parkinsonism: (7) Urinary tract infection: Total Time Total Time Spent Total Time Spent (In Minutes): <30 Discharge Plan Discharge Items Patient Disposition: Home - Self-Care Reason For Visit: CHOKING Discharge Diagnosis: choking. urinary tract infection Activity: Per Instructions section Non-emergency contact: Primary Care Provider Call non-emergency contact if: you have any medication questions, your symptoms worsen and you have a fever Follow-up/Referrals: Mo Griggs MD [Primary Care Provider] - (hospital discharge follow up within 1 week) Diet: Regular Addtl Attending Provider Instructions: You were admitted to the hospital after a choking episode. You were assessed by the speech therapist. You are being treated for a urinary tract infection. Per review of your urine culture from 08/06/21 performed at [facility], your antibiotic regimen has been changed to a medication called ciprofloxacin. 250mg by mouth twice a day for 7 days total. Take a dose tonight (08/09/21). The course will be completed on 08/05/10. Because of your rib pains, xray imaging to checked to rule out fracture. The xrays did not show new fracture. Please follow up with your PCP Dr. Griggs within 1 week of leaving the hospital. Follow-up appointments: * Make a follow-up appointment with your PCP within the next week. It is very important that you follow up with them shortly after discharge from the [facility]. * Keep all your follow-up appointments as already scheduled. If you cannot make an appointment, notify your provider. CONTACT YOUR PRIMARY CARE PROVIDER if you experience any of the following: * Stomach pain * Dizziness or loss of consciousness * Difficulty following your treatment plan, or difficulty taking medications CALL 911 OR GO TO THE EMERGENCY DEPARTMENT if you experience any of the following: * Sudden, severe abdominal pain or nausea/vomiting * Severe chest pain, or chest pain that radiates (moves) to your jaw or arm * Sudden, severe shortness of breath or difficulty breathing Pending Studies at Discharge: No Stand-Alone Forms: My [employer], Smoking Cessation Medications and DC Order Prescriptions: New ciprofloxacin HCl 250 mg Tablet 250 mg PO BID 7 Days Qty: 13 RF: 0 Continued topiramate 100 mg tablet 100 mg PO BID Qty: 60 RF: 5 albuterol sulfate 90 mcg/actuation HFA aerosol inhaler 2 puff inhalation Q4H PRN (Reason: shortness of breath) Qty: 1 RF: 3 levothyroxine [Euthyrox] 50 mcg tablet 50 mcg PO QAM Qty: 30 RF: 2 omeprazole 40 mg capsule,delayed release(DR/EC) 40 mg PO QAM Qty: 90 RF: 1 ropinirole 0.25 mg tablet 0.25 mg PO BID 90 Days Qty: 180 RF: 1 (DME) pen needle, diabetic [BD Ultra-Fine [place] Pen Needle] 32 gauge x 5/32" needle See Rx Instructions .Route Qty: 400 RF: 3 insulin aspart U-100 [Novolog Flexpen U-100 Insulin] 100 unit/mL (3 mL) insulin pen 15 - 25 unit SQ TID MDD 60 units Qty: 30 RF: 5 Tresiba FlexTouch U-100 100 unit/mL (3 mL) insulin pen 30 unit subcut QAM Qty: 15 RF: 1 ipratropium-albuterol 0.5 mg-3 mg(2.5 mg base)/3 mL solution for nebulization 3 ml INH QID PRN (Reason: wheezing) Qty: 90 RF: 0 teriparatide 20 mcg/dose (620mcg/2.48mL) pen injector 20 mcg subcut PM Qty: 7.44 RF: 0 benztropine 1 mg tablet 1 mg PO TID 30 Days Qty: 90 RF: 5 Xifaxan 550 mg tablet 550 mg PO BID Qty: 60 RF: 5 levetiracetam 750 mg tablet 1,500 mg PO BID 30 Days Qty: 120 RF: 5 cholecalciferol (vitamin D3) [Vitamin D3] 25 mcg (1,000 unit) capsule 5,000 unit PO QDL RF: 0 promethazine 25 mg tablet 25 mg PO Q8H PRN (Reason: nausea and vomiting) Qty: 10 RF: 0 ascorbate calcium (vitamin C) 500 mg tablet 500 mg PO QDL RF: 0 vitamin E (dl, acetate) 180 mg (400 unit) capsule 180 mg PO Q OTHER DAY RF: 0 (DME) SportsMEDIA TechnologyTouch Verio test strips Strip See Rx Instructions .Route Qty: 50 RF: 5 epinephrine [EpiPen 2-Garret] 0.3 mg/0.3 mL auto-injector 0.3 mg IM Q10M PRN (Reason: Anaphylaxis) RF: 0 lecithin 1,200 mg capsule 1,200 mg PO QDL RF: 0 cranberry 400 mg capsule 400 mg PO BIDM RF: 0 Emgality Pen 120 mg/mL pen injector 240 mg subcut ONCE 30 Days Qty: 2 RF: 0 multivitamin [Multiple Vitamins] Tablet 1 tab PO QDL RF: 0 zinc 50 mg Tablet 50 mg PO QDL RF: 0 vitamin A 8,000 unit Capsule 8,000 unit PO QDL RF: 0 vitamin B complex Tablet 1 tab PO QDL RF: 0 Probiotic 3 billion cell Capsule 1 mmu cells PO QDL RF: 0 fexofenadine 60 mg Tablet 60 mg PO QAM RF: 0 hydrocortisone 10 mg tablet See Rx Instructions .ROUTE .COMPLEX RF: 0 oxcarbazepine 300 mg tablet See Rx Instructions .ROUTE .COMPLEX RF: 0 calcium carbonate 500 mg calcium (1,250 mg) Tablet 500 mg PO QDL RF: 0 Blue-Emu Cream 1 applic topical HS RF: 0 Cognitive Formula 1 tab PO QDL RF: 0 lactulose 20 gram/30 mL solution 45 ml PO TID Qty: 2880 RF: 1 pravastatin 20 mg tablet 20 mg PO QAM RF: 0 escitalopram oxalate 20 mg tablet 20 mg PO QAM RF: 0 melatonin 5 mg tablet 10 mg PO HS Qty: 1 RF: 0 magnesium oxide 400 mg (241.3 mg magnesium) tablet 400 mg PO BID Qty: 0 RF: 0 acetaminophen [Tylenol Extra Strength] 500 mg Tablet 1,000 mg PO HS Qty: 0 RF: 0 Refresh Optive Advanced 0.5-1-0.5 % drops 2 drops OP HS Qty: 0 RF: 0 acetaminophen [Tylenol Extra Strength] 500 mg tablet 500 mg PO BID PRN (Reason: Pain) RF: 0 diclofenac sodium [Voltaren Arthritis Pain] 1 % gel 4 g EXT QID PRN (Reason: Pain) RF: 0 Discharge Orders: Discharge Order (Routine); Ordered 08/09/21 Ordered By: Caleb York Admission Data Admit Date/Time: 08/08/21 22:37 Attending Provider: Eagle Crocker Admit Provider: Vaibhav Restrepo Primary Care Provider: Mo Griggs Other Providers: Vince Osei Other Interventions: Discharge Summary Assessment (RN) Last Done: 08/09/21 17:18 Supervising Physician Co-Signing Physician Notes I personally examined the patient and verified all tai points of history and exam, discussed case, and agree with decision making with Dr York eating OK. did OK w speech - input appreciated. hurts all over - some in chest and back where heimlich was done, otherwise chronic foot pain and chronic weakness. wants to go to [facility] for rehab but hasn't been working on it at home. doesn't want to go anywhere but locally. has been back at home w vitals noted nad heent nc at mmm breathing unlabored no accessory muscles good effort skin no rashes no pallor or icterus. somewhat tender epigastric and lower ribs but no crepitis. no noted dyspnea. choking - resolved w heimlich. to be on minced and moist diet. stable for home. mild troponin bump very mild demand ischemia from stress of choking or just myocardial pressure from heimlich. safe for home no fractures. UTI - was unfortunately resistent to initial Rx of abx --> changed to cipro (bug is sensitive, and she is not allergic) safe for home, otherwise as above Resident Activity Tracking Resident Involvement: Resident Care Provided Care Provided: Adult Hospital Medicine
--- NOTE | 2021-08-09 07:37 | Hospitalist Progress Note ---
Date of Service August 09, 2021 Assessment & Plan (1) Elevated troponin: Plan: 55-year-old woman with medical history of hyperammonemia, hepatic encephalopathy, parkinsonism, type 2 diabetes, GERD, and depression, who presented to the ED for choking, and was admitted for elevated repeat troponin labs. Elevated troponin -Likely secondary to chest bruising/contusion following Heimlich maneuver for choking. -Troponin already downtrending, currently at 56.3, down from 75.1. Patient otherwise stable -Likely discharge in the morning, pending: * speech and swallow evaluation. * Follow next troponin lab, at 6 AM tomorrow. Hyperammonemia * Lactulose 45 mL 3 times daily Seizure/parkinsonism Continue home regimen: * Ropinirole 0.25 mg twice daily * Topiramate 100 mg 3 times daily * Keppra 1500 mg twice daily * Benztropine 1 mg 3 times daily Other chronic problems: Holding home regimen, unless patient is not discharged after speech and swallow evaluation. Code: Full Dispo: Med-Surg telemetry FEN/GI: NPO until speech and swallow evaluation DVT Prophylaxis: None (2) Choking episode: (3) Hyperammonemia: (4) Depression: (5) Dyslipidemia: (6) Parkinsonism: Admission and Anticipated Discharge Date Admission Date: August 08, 2021 Review of Systems Review of Systems: All systems reviewed & are unremarkable except as noted in HPI & below Physical Exam Physical Exam: General: Grossly A&O. NAD. Cooperative. HEENT: Atraumatic, normocephalic. EOMI Pulm: CTAB. -wheezes, -rales, -rhonchi. Symmetrical chest rise. No respiratory distress. Cardiac: RRR, -mrg. Radial pulses intact and symmetrical. Abdominal: Nontender, nondistended, soft. * Results & Data Results & Data ([facility]) Vital Signs (Past 12 Hours) Vital Signs Temp Pulse Pulse Resp BP BP Pulse Ox 08/09/21 07:24 59 L 08/09/21 07:19 36.6 C 64 22 138/67 08/09/21 03:25 36.7 C 59 L 22 135/74 99 08/08/21 23:57 36.6 C 62 20 149/79 H 100 08/08/21 22:45 64 17 131/86 98 08/08/21 20:13 100 08/08/21 20:11 68 18 123/61 100 Resident Activity Tracking Resident Involvement: Resident Care Provided Care Provided: Adult Hospital Medicine
[2021-08-09] MEDS ORDERED: PHARMACY GLYCEMIC MGMT CONSULT PRN (07:49)
[2021-08-09] MEDS ORDERED: CIPROFLOXACIN / D5W 400 MG/200 ML BAG IV SCH (08:00)
[2021-08-09] MEDS: INSULIN ASPART PER UNIT SC SCH ×3 (08:32→17:06)
[2021-08-09] MEDS ORDERED: DEXTROSE 50% 50 ML SYRINGE IV PRN (08:45)
[2021-08-09] MEDS ORDERED: GLUCAGON FOR INJ 1 MG VIAL IM PRN (08:45)
[2021-08-09] MEDS ORDERED: GLUCOSE 40% GEL 15 GM TUBE PO PRN (08:45)
[2021-08-09] MEDS ORDERED: GLUCOSE 10 TABS/TUBE PO PRN (08:45)
[2021-08-09] MEDS ORDERED: CARBOHYDRATES FOR HYPOGLYCEMIA PO PRN (08:45)
[2021-08-09] MEDS: BENZTROPINE MESYLATE 1 MG TAB PO SCH ×2 (08:50→13:43)
[2021-08-09] MEDS: LACTULOSE SYRUP 30 GM/45 ML UDP PO SCH ×2 (08:51→13:43)
[2021-08-09] MEDS ORDERED: rOPINIRole HCL 0.25 MG TABLET PO SCH (09:00)
[2021-08-09] MEDS ORDERED: INSULIN GLARGINE SOLOSTAR 100 UNITS/ML 3 ML PEN SQ SCH (09:00)
[2021-08-09] MEDS ORDERED: TOPIRAMATE 100 MG TAB PO SCH (09:00)
[2021-08-09 10:19] LABS: Appearance Urine Cloudy (Clear); Bacteria Urine Automated 4+ (Negative); Bilirubin Urine Negative (Negative); Blood Urine Negative (Negative); Cast Urine Automated 0 /lpf (0-5); Color Urine Yellow; Epithelial Cell Urine Auto 0-5 /lpf (0-5); Glucose Urine UA Negative (Negative); Ketones Urine Negative (Negative); Leukocyte Esterase Urine 1+ (Negative); Nitrite Urine Negative (Negative); Protein Urine Negative (Negative); RBC Urine Automated 0-4 /hpf (0-4); Specific Gravity Urine 1.007 (1.000-1.030); Urobilinogen Urine Negative (Negative); pH Urine 8.5 (4.5-7.5)
[2021-08-09] MEDS: MAGNESIUM SULFATE / D5W 1 GM/100 ML BAG IV SCH ×2 (11:13→13:33)
[2021-08-09] MEDS ORDERED: CALCIUM CARBONATE 1250MG TAB PO SCH (11:30)
[2021-08-09] MEDS ORDERED: INSULIN GLARGINE SOLOSTAR 100 UNITS/ML 3 ML PEN SC ONE (11:45)
--- NOTE | 2021-08-09 11:52 | Pharmacy Report ---
Pharmacy Glycemic Short Note 2 - Date of Service August 09, 2021 - Glycemic Short BSG Results (Last 24 hours): 08/08/21 08/08/21 08/08/21 15:56 15:59 20:30 Glucose 202 H POC Glucose 237 H 59 L* 08/08/21 08/09/21 08/09/21 23:49 05:44 07:17 Glucose POC Glucose 117 H 109 H 62 L* 08/09/21 08/09/21 08/09/21 07:17 07:27 07:28 Glucose POC Glucose 61 L* 67 L* 70 08/09/21 08/09/21 08:46 11:25 Glucose POC Glucose 156 H 164 H OUTPATIENT ANTIDIABETIC REGIMEN: * Tresiba 30 units SQ qAM * Novolog 15-25 units SQ TIDM (max 60 units daily) * HbA1c pending ASSESSMENT: * 55 yo admitted yesterday secondary to chest pain following the Heimlich maneuver following a choking incident. Pharmacy has been consulted this morning to assist with inpatient glycemic management in the setting of hypoglycemia. Patient is known to this service. * Hypoglycemia last evening and this AM likely related to full basal dose taken prior to admission yesterday following by little PO intake. Per RN, patient is not symptomatic during these hypoglycemic events. * Held AM basal but BSG trended up to 164 mg/dL with lunch today. Will give half of home dose at lunchtime today. Novolog started based on previous admission data. PLAN FOR INPATIENT GLYCEMIC CONTROL: * Basal insulin * Lantus 15 units SQ x 1 w/ lunch * Bolus insulin * NovoLog per scale ACHS or Q6hrs while NPO * Goal Range: Low 110 mg/dL - High 140 mg/dL * Correction Factor: 25 mg/dL/unit * Nutritional / Prandial insulin per carb ratio of 1 unit per 9 grams CHO consumed
--- NOTE | 2021-08-09 15:21 | XRay Report ---
THORACIC SPINE 3 VIEWS CLINICAL HISTORY: Thoracic back pain after receiving the Heimlich maneuver. FINDINGS: AP, lateral, and swimmer's views of the thoracic spine are compared to study dated and correlated with CT scan of the thoracic spine dated 05/12/2012. The skeletal structures are oste openic. There is no radiographic evidence of acute fracture or malalignment involving the thoracic sp ine. Vertebral body height and alignment are maintained throughout the thoracic spine. Chronic wedgin g of L1 and partial bony fusion of T12 and L1 is similar to previous. There is mild hyperkyphosis. An terior osteophytes are seen throughout. The transverse processes and pedicles are grossly intact as s een on the frontal view. Cervical spondylosis is partially visualized on the swimmer's view. There is mild multilevel degenerative disc space narrowing. A right-sided central venous infusion port is in place. Cholecystectomy clips are noted. The lung parenchyma is clear as visualized. IMPRESSION: Osteopenia and chronic changes as above with no acute bony abnormality identified. Electronically signed by: Aiden Randolph M.D. 08/09/2021 3:20 PM
--- NOTE | 2021-08-09 15:33 | XRay Report ---
XR ribs BI min 2V CLINICAL HISTORY: s/p Heimlich/ r/o fracture. Bilateral rib pain. COMPARISON STUDY: Chest 08/08/2021. FINDINGS: There are multiple old, healed bilateral rib fractures. No acute rib fractures identified. No pneumothorax. A right jugular Port-A-Cath runs at the [facility]. Prior cholecystectomy. IMPRESSION: No acute rib fractures. No pneumothorax. ACT 112: Negative or not required by law. Electronically signed by: Talon Cruz M.D. 08/09/2021 3:31 PM
--- NOTE | 2021-08-09 19:03 | Billing Data ---
Date of Service August 09, 2021 Coding Level of Care Code 81700 OBS Care - Discharge
[2021-08-09] MEDS ORDERED: OXcarbazepine 150 MG TABLET PO SCH (21:00)
[2021-08-09] MEDS ORDERED: HYDROCORTISONE 10 MG TAB PO SCH (21:00)
[2021-08-09] MEDS ORDERED: CIPROFLOXACIN 250 MG TAB PO SCH (21:00)
[2021-08-09] MEDS ORDERED: rifAXIMin 550 MG TABLET PO SCH (21:00)
[2021-08-09] MEDS ORDERED: MELATONIN 3 MG TAB PO SCH (21:00)
--- NOTE | 2021-08-10 04:18 | Billing Data ---
Date of Service August 10, 2021 Coding Level of Care Code INT OBSERVATION CARE 70M LVL 3
[2021-08-10] MEDS ORDERED: ESCITALOPRAM OXALATE 20 MG TAB PO SCH (09:00)
[2021-08-10] MEDS ORDERED: HYDROCORTISONE 10 MG TAB PO SCH (09:00)
[2021-08-10] MEDS ORDERED: OXcarbazepine 150 MG TABLET PO SCH (09:00)
[2021-08-10] MEDS ORDERED: PANTOprazole 40 MG TAB PO SCH (09:00)
[2021-08-10] MEDS ORDERED: FEXOFENADINE 60 MG TAB PO SCH (09:00)
[2021-08-10] MEDS ORDERED: [UNRECOGNIZED DRUG - OTHER] PO SCH (11:30)
[2021-08-10] MEDS ORDERED: CHOLECALCIFEROL 5,000 UNITS 125 MCG TAB PO SCH (11:30)
--- NOTE | 2021-08-10 14:26 | Electrocardiogram Report ---
Test Reason : Blood Pressure : / mmHG Vent. Rate : 073 BPM Atrial Rate : 073 BPM P-R Int : 160 ms QRS Dur : 098 ms QT Int : 420 ms P-R-T Axes : 048 -05 015 degrees QTc Int : 462 ms Normal sinus rhythm Normal ECG When compared with ECG of 01-AUG-2021 21:23, No significant change was found Confirmed by Dustin Gonzalez ([id number]) on 08/10/2021 2:26:34 PM Referred By: REFERRED SELF Confirmed By:Dustin Gonzalez
--- NOTE | 2021-08-10 15:52 | Electrocardiogram Report ---
Test Reason : Blood Pressure : / mmHG Vent. Rate : 063 BPM Atrial Rate : 063 BPM P-R Int : 162 ms QRS Dur : 102 ms QT Int : 466 ms P-R-T Axes : 036 -06 018 degrees QTc Int : 476 ms Normal sinus rhythm Normal ECG When compared with ECG of 08-AUG-2021 15:31, No significant change was found Confirmed by Dustin Gonzalez ([id number]) on 08/10/2021 3:51:39 PM Referred By: REFERRED SELF Confirmed By:Dustin Gonzalez
== END 2021-08-09 17:49 | disposition home or self-care (01) ==
LOC: 2E 14:41 → ED 14:41 → SUATTDRO 22:37 → 2E 23:22
DX: Z91.048 Other nonmedicinal substance allergy status; Z88.3 Allergy status to other anti-infective agents; F32.9 Major depressive disorder, single episode, unspecified; R55 Syncope and collapse; Z79.899 Other long term (current) drug therapy; E78.5 Hyperlipidemia, unspecified; G20 Parkinson's disease; Z88.1 Allergy status to other antibiotic agents; Z88.0 Allergy status to penicillin; Z88.8 Allergy status to other drugs, medicaments and biological substances; R77.8 Other specified abnormalities of plasma proteins; D61.818 Other pancytopenia; Z79.01 Long term (current) use of anticoagulants; Z88.6 Allergy status to analgesic agent; R09.89 Other specified symptoms and signs involving the circulatory and respiratory systems; Z88.5 Allergy status to narcotic agent; Z88.2 Allergy status to sulfonamides; E72.20 Disorder of urea cycle metabolism, unspecified

== ENCOUNTER 2021-09-22 14:10 | Observation (INO) ==
--- NOTE | 2021-09-22 15:31 | XRay Report ---
XR chest 1V portable HISTORY: 55 years-old Female weakness acute weakness COMPARISON: 08/13/2021 TECHNIQUE: Portable AP view of the chest FINDINGS: The cardiac silhouette is enlarged. Pulmonary vascular congestion with interstitial coarsening. Uncha nged positioning of the right IJ central venous catheter. The patient is mildly rotated. Mild right h emidiaphragmatic elevation. No pneumothorax, large pleural effusion or overt pulmonary edema. Degener ative changes of the shoulders and spine. IMPRESSION: Cardiomegaly with pulmonary vascular congestion. ACT 112: Negative or not required by law. The above report was generated using voice recognition software. It may contain grammatical, syntax o r spelling errors. Electronically signed by: Ruben Segura M.D. 09/22/2021 3:30 PM
--- NOTE | 2021-09-22 15:39 | Emergency Department Note ---
Impression & Plan Acute hepatic encephalopathy ADMIT ED Provider Note HPI: Patient is a 55-year-old female with history of depression, parkinsonism, cirrhosis with history of recurrent hepatic encephalopathy, presents the emergency department today with a chief complaint of drowsiness and lethargy that been ongoing since this morning. Patient's at the bedside states that she has had multiple such presentations in the past associated with hepatic encephalopathy and elevated ammonia levels. On arrival here to the ED the patient is lethargic appearing, she is hemodynamically stable, she is saturating at 99% on room air and is protecting her airway appropriately, she is not following commands. Patient's states that she was essentially at her normal baseline mentation last evening and the symptoms developed this morning when she woke up. ROS: -Neuro: Lethargy, history of hepatic encephalopathy *10 point review systems was conducted and is otherwise negative unless stated above *Outpatient medications and allergy history reviewed PE: General: Lethargic HEENT: Normocephalic, atraumatic Eyes: Extraocular eye movement is intact, no scleral erythema, pupils are reactive bilaterally Pulmonary: Clear to auscultation bilaterally, no wheezing Cardio: Regular rate and rhythm GI: Abdomen is soft, nontender : No suprapubic tenderness MSK: No evidence of trauma or malformation of the extremities, no edema Skin: No evidence of rash Neuro: Lethargic appearing, not following commands 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 She does have a history of recurrent presentations to the emergency room with similar types of lethargy and altered mentation that is been associated with hepatic encephalopathy. Patient does have a history of cirrhosis. According to her she was in her normal state of health/mentation up until going to bed last night, when she woke up this morning she seemed more drowsy than usual. She arrives by private vehicle with her . On arrival the patient is hemodynamically stable but she is lethargic, she is saturating well on room air and is protecting her airway. Lab work was obtained that of largely appears to be at baseline although patient's ammonia level is 133, CT imaging of the head is negative for any acute intracranial process. I do suspect hepatic encephalopathy as a source of the patient's lethargy. She was ordered rectal lactulose as I do not feel that she can be taking oral medications at this time given her lethargy. Case was discussed with the on- call hospitalist, Dr. Freeman, who is familiar with the patient, and the patient was admitted in stable condition for further care of hepatic encephalopathy with elevated ammonia levels. Diagnosis: 1. Altered mental status, acute 2. Hepatic encephalopathy, acute 3. Elevated ammonia level Disposition: Admission Kenroy Cook DO Emergency Medicine Past Med/Surg History Medical History Acute alteration in mental status Acute alteration in mental status Acute confusion Acute dehydration Acute hepatic encephalopathy Acute hepatic encephalopathy Acute hepatic encephalopathy Altered mental status Depression Electrolyte abnormality Hyperammonemia Hyperbilirubinemia Nonalcoholic fatty liver disease Parkinsonism Sleepiness Spleen enlargement Thrombocytopenia Urinary tract infection UTI (urinary tract infection) Surgical History Femur fracture, right SPIRAL FRACTURE REPAIRED (HARDWARE REPAIRED) History of ankle surgery RT/LEFT History of appendectomy History of cholecystectomy History of colonoscopy History of esophagogastroduodenoscopy (EGD) History of kyphoplasty History of open reduction and internal fixation (ORIF) procedure RT HIP History of surgery (~06/02/20) screw/plate removal from left humerus History of surgery on arm LEFT (HARDWARE INTACT) History of tooth extraction History of vascular access device right A port Hx of carpal tunnel repair RT/LEFT Hx of cataract extraction RT/LEFT S/P laminectomy lumbar spine S/P nasal surgery nasal bone fracture repair S/P TIFFANIE-BSO (1997) Family History Other Adopted No pertinent family history Social History Smoking Status: Never smoker Tobacco Type: Cigarettes Second Hand Exposure: No; Hx Alcohol Use: No Hx Substance Use: No Preferred Language: Syriac Communication Ability: Effective Visual Impairment: No Limitations 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 Required: No Beliefs That Will Affect Care: None marital status: Current Living Situation: Spouse Current Living Situation Comment: Lives with current occupational status: unemployed and disabled How many Children do You have: 0 Feels Safe at Home: Yes Seatbelt Use: always Assistive Devices: Walker and Wheelchair Allergies Allergies Allergy/AdvReac Type Severity Reaction Status Date / Time metoclopramide Allergy Severe SEIZURES Verified 09/22/21 16:41 metronidazole Allergy Severe SEIZURE Verified 09/22/21 16:41 tramadol Allergy Severe SEIZURES Verified 09/22/21 16:41 amoxicillin Allergy Intermediate SEE COMMENT Verified 09/22/21 16:41 baclofen Allergy Intermediate RASH Verified 09/22/21 16:41 butalbital Allergy Intermediate HIVES Verified 09/22/21 16:41 dicyclomine Allergy Intermediate HIVES Verified 09/22/21 16:41 nitrofurantoin Allergy Intermediate HIVES/RASH/SEVERE Verified 09/22/21 16:41 [From Macrobid] ITCHING pollen extracts Allergy Intermediate Hives Verified 09/22/21 16:41 Sulfa (Sulfonamide Allergy Intermediate CAUSES Verified 09/22/21 16:41 Antibiotics) BLACK STOOLS Tetracyclines Allergy Intermediate DOXYCYCLINE Verified 09/22/21 16:41 -HIVES adhesive Allergy Mild RASH, Verified 09/22/21 16:41 DUODERM=RED,ITCHY celecoxib Allergy Mild HIVES Verified 09/22/21 16:41 sulindac Allergy Mild ALLERGY Verified 09/22/21 16:41 LISTED "CLONDORAL"--HIVES Cephalosporins AdvReac Severe TURNS Verified 09/22/21 16:41 STOOL VERY DARK paroxetine [From Paxil] AdvReac Severe Vomiting Verified 09/22/21 16:41 dextromethorphan AdvReac Mild Vomiting Verified 09/22/21 16:41 Home Meds Home Medications Medication Instructions Recorded Confirmed multivitamin (Multiple Vitamins) 1 tab PO QDL 12/26/17 09/22/21 lactobacillus combination no.4 3 1 mmu cells PO QDL 09/20/18 09/22/21 billion cell capsule (Probiotic) vitamin A 2,400 mcg capsule 8,000 unit PO QDL 09/20/18 09/22/21 vitamin B complex 1 tab PO QDL 09/20/18 09/22/21 zinc 50 mg tablet 50 mg PO QDL 02/09/19 09/22/21 epinephrine 0.3 mg/0.3 mL 0.3 mg IM Q10M PRN 04/02/19 09/22/21 injection, auto-injector (EpiPen 2-Garret) lecithin 1,200 mg capsule 1,200 mg PO QDL 04/29/19 09/22/21 fexofenadine 60 mg tablet 60 mg PO QAM 04/12/20 09/22/21 cranberry 400 mg capsule 400 mg PO BIDM 06/08/20 09/22/21 ascorbate calcium (vitamin C) 500 500 mg PO QDL 11/16/20 09/22/21 mg tablet vitamin E (dl, acetate) 180 mg 180 mg PO Q OTHER DAY cap 11/16/20 09/22/21 (400 unit) capsule cholecalciferol (vitamin D3) 25 5,000 unit PO QDL cap 11/30/20 09/22/21 mcg (1,000 unit) capsule (Vitamin D3) hydrocortisone 10 mg tablet See Rx Instructions .ROUTE 11/30/20 09/22/21 .COMPLEX tab pravastatin 20 mg tablet 20 mg PO QAM 12/05/20 09/22/21 escitalopram oxalate 20 mg tablet 20 mg PO QAM 12/29/20 09/22/21 acetaminophen 500 mg tablet 500 mg PO BID PRN 06/22/21 09/22/21 (Tylenol Extra Strength) diclofenac sodium 1 % topical gel 4 g EXT QID PRN 06/22/21 09/22/21 (Voltaren Arthritis Pain) Blue-Emu Cream 1 applic TOPICAL HS 07/22/21 09/22/21 calcium carbonate 500 mg calcium 500 mg PO QDL 07/22/21 09/22/21 (1,250 mg) tablet rimegepant 75 mg disintegrating 75 mg PO .COMPLEX PRN 09/22/21 09/22/21 tablet (Nurtec ODT) Previous Rx's Medication Instructions Recorded albuterol sulfate 90 mcg/actuation 2 puff INHALATION Q4H PRN #1 05/31/20 aerosol inhaler inhaler promethazine 25 mg tablet 25 mg PO Q8H PRN #10 tab 10/11/20 levetiracetam 750 mg tablet 1,500 mg PO BID 30 Days #120 tab 10/30/20 omeprazole 40 mg capsule,delayed 40 mg PO QAM #90 cap 11/15/20 release magnesium oxide 400 mg (241.3 mg 400 mg PO BID #0 tab 01/02/21 magnesium) tablet melatonin 5 mg tablet 10 mg PO HS #1 tab 01/02/21 ropinirole 0.25 mg tablet 0.25 mg PO BID 90 Days #180 tab 01/10/21 acetaminophen 500 mg tablet 1,000 mg PO HS #0 tab 04/20/21 (Tylenol Extra Strength) weteqnnpcqsdfrsgkockqh-ydlfhbwx-jddgtllj 2 drops OP HS #0 ml 04/20/21 80 0.5 %-1 %-0.5 % eye drops (Refresh Optive Advanced) pen needle, diabetic 32 gauge x #400 ea 06/26/21" (BD Ultra-Fine [place] Pen Needle) insulin aspart U-100 100 unit/mL 15 - 25 unit SQ TID #30 ml MDD 60 07/07/21 (3 mL) subcutaneous pen (Novolog units Flexpen U-100 Insulin aspart) insulin degludec 100 unit/mL (3 30 unit SUBCUT QAM #15 ml 07/07/21 mL) subcutaneous pen (Tresiba FlexTouch U-100 insulin) blood sugar diagnostic (OneTouch #50 ea 07/17/21 Verio test strips) ipratropium 0.5 mg-albuterol 3 mg 3 ml INH QID PRN #90 ml 07/19/21 (2.5 mg base)/3 mL nebulization soln benztropine 1 mg tablet 1 mg PO TID 30 Days #90 tab 07/20/21 teriparatide 20 mcg/dose (620 20 mcg SUBCUT PM #7.44 ml 07/20/21 mcg/2.48 mL) subcutaneous pen injector rifaximin 550 mg tablet (Xifaxan) 550 mg PO BID #60 tab 07/26/21 lactulose 20 gram/30 mL oral 45 ml PO TID #2880 ml 08/02/21 solution oxcarbazepine 300 mg tablet See Rx Instructions .ROUTE 08/14/21 .COMPLEX #90 tab topiramate 100 mg tablet 100 mg PO BID #60 tab 08/14/21 levothyroxine 50 mcg tablet 50 mcg PO QAM #30 tab 09/12/21 (Euthyrox) Results & Data (ED) Vital Signs Vital Signs - 24 hr 09/22/21 14:11 09/22/21 14:16 09/22/21 15:35 Temperature 36.9 C Temperature Source Temporal Artery Scan Pulse Rate 77 Pulse Rate [Apical] 68 Respiratory Rate 18 25 H Respiratory Effort / Characteristics Non-Labored Spontaneous Respiratory Depth Normal Blood Pressure 148/79 H Blood Pressure [Right Arm] 150/77 H Blood Pressure Mean 102 Blood Pressure Mean [Right Arm] 101 Blood Pressure Position Sitting Pulse Oximetry 97 Oxygen Delivery Method Room Air Room Air Sepsis Recent Fever Within 48 Hours No Sepsis New/Unexplained Change in Mental Status No Sepsis Action Taken by Nursing No Action Required Laboratory Data Result diagrams: 09/22/21 15:33 09/22/21 15:33 Lab Results 09/22/21 09/22/21 09/22/21 Range/Units 15:33 15:33 15:33 WBC 4.73 L (4.8-10.8) K/uL RBC 3.45 L (4.2-5.4) M/uL Hgb 12.2 (12.0-16.0) g/dL Hct 35.2 L (37-47) % MCV 102.0 H (80-100) fL MCH 35.4 H (25-34) pg MCHC 34.7 (32-36) g/dL RDW Std Deviation 55.9 H (36.4-46.3) fL RDW Coeff of Irina 15.4 H (11.5-14.5) % Plt Count 105 L (130-400) K/uL MPV 10.4 (7.4-10.4) fL Immature Gran % (Auto) 0.0 % Neut % (Auto) 59.8 % Lymph % (Auto) 25.8 % Gallia % (Auto) 10.1 % Eos % (Auto) 3.2 % Baso % (Auto) 1.1 % Neut # (Auto) 2.83 (1.4-6.5) K/uL Lymph # (Auto) 1.22 (1.2-3.4) K/uL Gallia # (Auto) 0.48 (0.11-0.59) K/uL Eos # (Auto) 0.15 (0-0.5) K/uL Baso # (Auto) 0.05 (0-0.2) K/uL Immature Gran # (Auto) 0.00 (0.00-0.02) K/uL Ovalocytes 1+ Sodium 144 (136-145) mmol/L Potassium 3.5 (3.5-5.1) mmol/L Chloride 118 H (98-107) mmol/L Carbon Dioxide 20 L (21-32) mmol/L Anion Gap 6 (3-11) BUN 14 (6-23) mg/dl Creatinine 0.66 (0.6-1.2) mg/dl Est Cr Clr Drug Dosing Not Reportable Est GFR ( Amer) 115.3 ml/min Est GFR (Non-Af Amer) 99.4 ml/min BUN/Creatinine Ratio 21.2 H (10-20) Glucose 126 H (70-99(Fasting)) mg/dl Lactate (0.4-2.0) mmol/L Calcium 8.1 L (8.5-10.1) mg/dl Total Bilirubin 1.8 H (0.2-1.0) mg/dl AST 31 (13-39) U/L ALT 31 (7-52) U/L Alkaline Phosphatase 137 H (34-104) U/L Ammonia 133.0 H (18-72) umol/L Troponin I High Sens 6.3 (0-14) pg/ml Total Protein 6.1 (6.0-8.3) gm/dl Albumin 3.4 (3.4-5.0) gm/dl Globulin 2.7 (2.5-4.0) gm/dl Albumin/Globulin Ratio 1.3 (0.9-2) TSH (0.300-4.500) uIu/ml 09/22/21 09/22/21 Range/Units 15:33 15:33 WBC (4.8-10.8) K/uL RBC (4.2-5.4) M/uL Hgb (12.0-16.0) g/dL Hct (37-47) % MCV (80-100) fL MCH (25-34) pg MCHC (32-36) g/dL RDW Std Deviation (36.4-46.3) fL RDW Coeff of Irina (11.5-14.5) % Plt Count (130-400) K/uL MPV (7.4-10.4) fL Immature Gran % (Auto) % Neut % (Auto) % Lymph % (Auto) % Gallia % (Auto) % Eos % (Auto) % Baso % (Auto) % Neut # (Auto) (1.4-6.5) K/uL Lymph # (Auto) (1.2-3.4) K/uL Gallia # (Auto) (0.11-0.59) K/uL Eos # (Auto) (0-0.5) K/uL Baso # (Auto) (0-0.2) K/uL Immature Gran # (Auto) (0.00-0.02) K/uL Ovalocytes Sodium (136-145) mmol/L Potassium (3.5-5.1) mmol/L Chloride (98-107) mmol/L Carbon Dioxide (21-32) mmol/L Anion Gap (3-11) BUN (6-23) mg/dl Creatinine (0.6-1.2) mg/dl Est Cr Clr Drug Dosing Est GFR ( Amer) ml/min Est GFR (Non-Af Amer) ml/min BUN/Creatinine Ratio (10-20) Glucose (70-99(Fasting)) mg/dl Lactate 1.2 (0.4-2.0) mmol/L Calcium (8.5-10.1) mg/dl Total Bilirubin (0.2-1.0) mg/dl AST (13-39) U/L ALT (7-52) U/L Alkaline Phosphatase (34-104) U/L Ammonia (18-72) umol/L Troponin I High Sens (0-14) pg/ml Total Protein (6.0-8.3) gm/dl Albumin (3.4-5.0) gm/dl Globulin (2.5-4.0) gm/dl Albumin/Globulin Ratio (0.9-2) TSH 1.743 (0.300-4.500) uIu/ml Imaging Data Radiologist's Impression: Chest X-Ray 09/22/21 14:21 XR chest 1V portable HISTORY: 55 years-old Female weakness acute weakness COMPARISON: 08/13/2021 TECHNIQUE: Portable AP view of the chest FINDINGS: The cardiac silhouette is enlarged. Pulmonary vascular congestion with interstitial coarsening. Unchanged positioning of the right IJ central venous catheter. The patient is mildly rotated. Mild right hemidiaphragmatic elevation. No pneumothorax, large pleural effusion or overt pulmonary edema. Degenerative changes of the shoulders and spine. IMPRESSION: Cardiomegaly with pulmonary vascular congestion. ACT 112: Negative or not required by law. The above report was generated using voice recognition software. It may contain grammatical, syntax or spelling errors. Electronically signed by: Ruben Segura M.D. 09/22/2021 3:[address] 09/22/21 15:39 CT head/brain wo con CLINICAL HISTORY: 55 years-old Female with AMS. Acutely altered mental status TECHNIQUE: Multiple axial CT images of the head were obtained without contrast. A dose lowering technique was utilized adhering to the principles of ALARA. CT DOSE: 614.27 mGy.cm COMPARISON: Head CT 07/03/2021 FINDINGS: No acute intracranial hemorrhage, midline shift, intracranial mass, hydrocephalus, territorial ischemia or abnormal extra-axial collection. Mild involutional changes. Unchanged mild white matter hypodensities. The study is mildly motion degraded. The calvarium is intact. Prior bilateral lens repair. The paranasal sinuses, mastoid air cells, and middle ear cavities are clear. IMPRESSION: No acute intracranial abnormality. ACT 112: Negative or not required by law. The above report was generated using voice recognition software. It may contain grammatical, syntax or spelling errors. Electronically signed by: Ruben Segura M.D. 09/22/2021 4:34 PM Discharge Plan Visit Data Chief Complaint: Weakness Stated Complaint: MENTALLY &PHYSICALLY SLOW/CONSTIPATED ED Provider: Kenroy Cook Discharge Problem: Acute hepatic encephalopathy Forms Stand Alone Forms: [facility] [place] [id number] Prescriptions Prescriptions: No Action albuterol sulfate 90 mcg/actuation HFA aerosol inhaler 2 puff inhalation Q4H PRN (Reason: shortness of breath) Qty: 1 RF: 3 omeprazole 40 mg capsule,delayed release(DR/EC) 40 mg PO QAM Qty: 90 RF: 1 ropinirole 0.25 mg tablet 0.25 mg PO BID 90 Days Qty: 180 RF: 1 (DME) pen needle, diabetic [BD Ultra-Fine [place] Pen Needle] 32 gauge x 5/32" needle See Rx Instructions .Route Qty: 400 RF: 3 insulin aspart U-100 [Novolog Flexpen U-100 Insulin] 100 unit/mL (3 mL) insulin pen 15 - 25 unit SQ TID MDD 60 units Qty: 30 RF: 5 Tresiba FlexTouch U-100 100 unit/mL (3 mL) insulin pen 30 unit subcut QAM Qty: 15 RF: 1 ipratropium-albuterol 0.5 mg-3 mg(2.5 mg base)/3 mL solution for nebulization 3 ml INH QID PRN (Reason: wheezing) Qty: 90 RF: 0 teriparatide 20 mcg/dose (620mcg/2.48mL) pen injector 20 mcg subcut PM Qty: 7.44 RF: 0 benztropine 1 mg tablet 1 mg PO TID 30 Days Qty: 90 RF: 5 Xifaxan 550 mg tablet 550 mg PO BID Qty: 60 RF: 5 topiramate 100 mg tablet 100 mg PO BID Qty: 60 RF: 5 oxcarbazepine 300 mg tablet See Rx Instructions .ROUTE .COMPLEX Qty: 90 RF: 5 levothyroxine [Euthyrox] 50 mcg tablet 50 mcg PO QAM Qty: 30 RF: 2 levetiracetam 750 mg tablet 1,500 mg PO BID 30 Days Qty: 120 RF: 5 cholecalciferol (vitamin D3) [Vitamin D3] 25 mcg (1,000 unit) capsule 5,000 unit PO QDL RF: 0 promethazine 25 mg tablet 25 mg PO Q8H PRN (Reason: nausea and vomiting) Qty: 10 RF: 0 ascorbate calcium (vitamin C) 500 mg tablet 500 mg PO QDL RF: 0 vitamin E (dl, acetate) 180 mg (400 unit) capsule 180 mg PO Q OTHER DAY RF: 0 (DME) BeSmartTouch Verio test strips Strip See Rx Instructions .Route Qty: 50 RF: 5 epinephrine [EpiPen 2-Garret] 0.3 mg/0.3 mL auto-injector 0.3 mg IM Q10M PRN (Reason: Anaphylaxis) RF: 0 lecithin 1,200 mg capsule 1,200 mg PO QDL RF: 0 cranberry 400 mg capsule 400 mg PO BIDM RF: 0 multivitamin [Multiple Vitamins] Tablet 1 tab PO QDL RF: 0 zinc 50 mg Tablet 50 mg PO QDL RF: 0 vitamin A 8,000 unit Capsule 8,000 unit PO QDL RF: 0 vitamin B complex Tablet 1 tab PO QDL RF: 0 Probiotic 3 billion cell Capsule 1 mmu cells PO QDL RF: 0 fexofenadine 60 mg Tablet 60 mg PO QAM RF: 0 hydrocortisone 10 mg tablet See Rx Instructions .ROUTE .COMPLEX RF: 0 calcium carbonate 500 mg calcium (1,250 mg) Tablet 500 mg PO QDL RF: 0 Blue-Emu Cream 1 applic topical HS RF: 0 lactulose 20 gram/30 mL solution 45 ml PO TID Qty: 2880 RF: 1 Nurtec ODT 75 mg tablet,disintegrating 75 mg PO .COMPLEX PRN (Reason: Migraine Headache) RF: 0 pravastatin 20 mg tablet 20 mg PO QAM RF: 0 escitalopram oxalate 20 mg tablet 20 mg PO QAM RF: 0 melatonin 5 mg tablet 10 mg PO HS Qty: 1 RF: 0 magnesium oxide 400 mg (241.3 mg magnesium) tablet 400 mg PO BID Qty: 0 RF: 0 acetaminophen [Tylenol Extra Strength] 500 mg Tablet 1,000 mg PO HS Qty: 0 RF: 0 Refresh Optive Advanced 0.5-1-0.5 % drops 2 drops OP HS Qty: 0 RF: 0 acetaminophen [Tylenol Extra Strength] 500 mg tablet 500 mg PO BID PRN (Reason: Pain) RF: 0 diclofenac sodium [Voltaren Arthritis Pain] 1 % gel 4 g EXT QID PRN (Reason: Pain) RF: 0 Referrals Referrals: Geri Mcgraw PA-C [Primary Care Provider] -
[2021-09-22 15:56] LABS: Basophils # (auto) 0.05 K/uL (0-0.2); Basophils % (auto) 1.1 %; Eosinophils # (auto) 0.15 K/uL (0-0.5); Eosinophils % (auto) 3.2 %; Hematocrit (blood only) 35.2 % (37-47); Hemoglobin 12.2 g/dL (12.0-16.0); Lymphocytes # (auto) 1.22 K/uL (1.2-3.4); Lymphocytes % (auto) 25.8 %; Mean Corpuscular Hemoglobin 35.4 pg (25-34); Mean Corpuscular Hgb Conc 34.7 g/dL (32-36); Mean Platelet Volume 10.4 fL (7.4-10.4); Monocytes # (auto) 0.48 K/uL (0.11-0.59); Monocytes % (auto) 10.1 %; Neutrophils # (auto) 2.83 K/uL (1.4-6.5); Neutrophils % (auto) 59.8 %; Platelet Count 105 K/uL (130-400); RDW Coefficient of Variation 15.4 % (11.5-14.5); RDW Standard Deviation 55.9 fL (36.4-46.3); Red Blood Count 3.45 M/uL (4.2-5.4); White Blood Count 4.73 K/uL (4.8-10.8)
[2021-09-22 16:18] LABS: Alanine Aminotransferase 31 U/L (7-52); Albumin Globulin Ratio 1.3 (0.9-2); Albumin Level 3.4 gm/dl (3.4-5.0); Alkaline Phosphatase 137 U/L (34-104); Anion Gap 6 (3-11); Aspartate Aminotransferase 31 U/L (13-39); BUN Creatinine Ratio 21.2 (10-20); Bilirubin,Total 1.8 mg/dl (0.2-1.0); Blood Urea Nitrogen 14 mg/dl (6-23); Calcium 8.1 mg/dl (8.5-10.1); Carbon Dioxide 20 mmol/L (21-32); Chloride 118 mmol/L (98-107); Est GFR (African American) 115.3 ml/min; Est GFR (Non-African American) 99.4 ml/min; Globulin 2.7 gm/dl (2.5-4.0); Glucose 126 mg/dl (70-99(Fasting)); Potassium 3.5 mmol/L (3.5-5.1); Sodium 144 mmol/L (136-145); Total Protein 6.1 gm/dl (6.0-8.3)
[2021-09-22 16:22] LABS: Troponin I High Sensitivity 6.3 pg/ml (0-14)
[2021-09-22 16:23] LABS: Ovalocytes 1+
[2021-09-22] MEDS ORDERED: LACTULOSE 200GM/700ML WTR ENEMA PR SCH (16:30)
--- NOTE | 2021-09-22 16:36 | CT Scan Report ---
CT head/brain wo con CLINICAL HISTORY: 55 years-old Female with AMS. Acutely altered mental status TECHNIQUE: Multiple axial CT images of the head were obtained without contrast. A dose lowering tech nique was utilized adhering to the principles of ALARA. CT DOSE: 614.27 mGy.cm COMPARISON: Head CT 07/03/2021 FINDINGS: No acute intracranial hemorrhage, midline shift, intracranial mass, hydrocephalus, territorial ischem ia or abnormal extra-axial collection. Mild involutional changes. Unchanged mild white matter hypoden sities. The study is mildly motion degraded. The calvarium is intact. Prior bilateral lens repair. The paranasal sinuses, mastoid air cells, and m iddle ear cavities are clear. IMPRESSION: No acute intracranial abnormality. ACT 112: Negative or not required by law. The above report was generated using voice recognition software. It may contain grammatical, syntax o r spelling errors. Electronically signed by: Ruben Segura M.D. 09/22/2021 4:34 PM
[2021-09-22] MEDS ORDERED: LACTULOSE SYRUP 30 GM/45 ML UDP NG STA (17:47)
--- NOTE | 2021-09-22 17:58 | XRay Report ---
KUB HISTORY: Status post placement of an enteric tube NGT placement COMPARISON: 06/22/2021 FINDINGS: Right IJ Wcpcly-d-Ftym catheter. Possible right lower quadrant ostomy. Cholecystectomy. Ent jose tube is present which loops upon itself, distal tip projected superiorly within the region of th e gastric cardia. Mildly distended air-filled loops of large bowel. Renal shadows are obscured. Card iomegaly. No pneumoperitoneum or pneumatosis. No fracture. IMPRESSION: Status post placement of an enteric tube, distal tip projected superiorly within the proximal stomach . ACT 112: Negative or not required by law. The above report was generated using voice recognition software. It may contain grammatical, syntax o r spelling errors. Electronically signed by: Ruben Segura M.D. 09/22/2021 5:57 PM
--- NOTE | 2021-09-22 17:59 | History & Physical Report ---
Date of Service September 22, 2021 Assessment & Plan (1) Acute hepatic encephalopathy: Plan: Likely due to non-compliance with medication. - Continue home lactulose dosing - Continue home rifaxamin (2) Nonalcoholic fatty liver disease: Plan: With cirrhosis. WBC, hgb, and platelets all at baseline. - No inpatient needs (3) Diabetes mellitus: Plan: A1c was 5.2% in 08/2021. - Lower long-acting to 20 units instead of home 30 units QAM - Sliding scale insulin - Hold other home DM meds (4) Adrenal insufficiency: Plan: Suspected. Notes as far back as 03/2020 indicate some question of if this is true and that repeat testing is planned. However, I do not see any repeat testing. - Continue home hydrocortisone - Can plan to reach out to endocrinology on Friday (5) Parkinsonism: Plan: From her seizure and other psychiatric medications. - Continue: * Ropinirole 0.25 mg twice daily * Topiramate 100 mg 3 times daily * Keppra 1500 mg twice daily * Benztropine 1 mg 3 times daily (6) Depression: Plan: - Continue home meds (7) DVT prophylaxis: Plan: SCDs, early ambulation History of Present Illness Primary Care Provider: Geri Mcgraw PA-C 55yo F w/ hx of cirrhosis who presents with hepatic encephalopathy. The ED provider was able to speak with the who reports that she has become more lethargic over the last few days. The patient is a poor historian, but to the best of her recollection, she has not had a BM in about 4 days. She does not know if she is taking her lactulose and cannot tell me if she has been taking more to try to have a BM. Reports no fevers/chills, chest pain, shortness of breath, abdominal pain, nausea, or vomiting. Allergies Allergy/AdvReac Type Severity Reaction Status Date / Time metoclopramide Allergy Severe SEIZURES Verified 09/22/21 16:41 metronidazole Allergy Severe SEIZURE Verified 09/22/21 16:41 tramadol Allergy Severe SEIZURES Verified 09/22/21 16:41 amoxicillin Allergy Intermediate SEE COMMENT Verified 09/22/21 16:41 baclofen Allergy Intermediate RASH Verified 09/22/21 16:41 butalbital Allergy Intermediate HIVES Verified 09/22/21 16:41 dicyclomine Allergy Intermediate HIVES Verified 09/22/21 16:41 nitrofurantoin Allergy Intermediate HIVES/RASH/SEVERE Verified 09/22/21 16:41 [From Macrobid] ITCHING pollen extracts Allergy Intermediate Hives Verified 09/22/21 16:41 Sulfa (Sulfonamide Allergy Intermediate CAUSES Verified 09/22/21 16:41 Antibiotics) BLACK STOOLS Tetracyclines Allergy Intermediate DOXYCYCLINE Verified 09/22/21 16:41 -HIVES adhesive Allergy Mild RASH, Verified 09/22/21 16:41 DUODERM=RED,ITCHY celecoxib Allergy Mild HIVES Verified 09/22/21 16:41 sulindac Allergy Mild ALLERGY Verified 09/22/21 16:41 LISTED "CLONDORAL"--HIVES Cephalosporins AdvReac Severe TURNS Verified 09/22/21 16:41 STOOL VERY DARK paroxetine [From Paxil] AdvReac Severe Vomiting Verified 09/22/21 16:41 dextromethorphan AdvReac Mild Vomiting Verified 09/22/21 16:41 Home Medications Medication Instructions Recorded Confirmed Type multivitamin (Multiple Vitamins) 1 tab PO QDL 12/26/17 09/22/21 History lactobacillus combination no.4 3 1 mmu cells PO QDL 09/20/18 09/22/21 History billion cell capsule (Probiotic) vitamin A 2,400 mcg capsule 8,000 unit PO QDL 09/20/18 09/22/21 History vitamin B complex 1 tab PO QDL 09/20/18 09/22/21 History zinc 50 mg tablet 50 mg PO QDL 02/09/19 09/22/21 History epinephrine 0.3 mg/0.3 mL 0.3 mg IM Q10M PRN 04/02/19 09/22/21 History injection, auto-injector (EpiPen 2-Garret) lecithin 1,200 mg capsule 1,200 mg PO QDL 04/29/19 09/22/21 History fexofenadine 60 mg tablet 60 mg PO QAM 04/12/20 09/22/21 History albuterol sulfate 90 mcg/actuation 2 puff INHALATION Q4H PRN #1 05/31/20 09/22/21 Rx aerosol inhaler inhaler cranberry 400 mg capsule 400 mg PO BIDM 06/08/20 09/22/21 History promethazine 25 mg tablet 25 mg PO Q8H PRN #10 tab 10/11/20 09/22/21 Rx levetiracetam 750 mg tablet 1,500 mg PO BID 30 Days #120 tab 10/30/20 09/22/21 Rx omeprazole 40 mg capsule,delayed 40 mg PO QAM #90 cap 11/15/20 09/22/21 Rx release ascorbate calcium (vitamin C) 500 500 mg PO QDL 11/16/20 09/22/21 History mg tablet vitamin E (dl, acetate) 180 mg 180 mg PO Q OTHER DAY cap 11/16/20 09/22/21 History (400 unit) capsule cholecalciferol (vitamin D3) 25 5,000 unit PO QDL cap 11/30/20 09/22/21 History mcg (1,000 unit) capsule (Vitamin D3) hydrocortisone 10 mg tablet See Rx Instructions .ROUTE 11/30/20 09/22/21 History .COMPLEX tab pravastatin 20 mg tablet 20 mg PO QAM 12/05/20 09/22/21 History escitalopram oxalate 20 mg tablet 20 mg PO QAM 12/29/20 09/22/21 History magnesium oxide 400 mg (241.3 mg 400 mg PO BID #0 tab 01/02/21 09/22/21 Rx magnesium) tablet melatonin 5 mg tablet 10 mg PO HS #1 tab 01/02/21 09/22/21 Rx ropinirole 0.25 mg tablet 0.25 mg PO BID 90 Days #180 tab 01/10/21 09/22/21 Rx acetaminophen 500 mg tablet 1,000 mg PO HS #0 tab 04/20/21 09/22/21 Rx (Tylenol Extra Strength) szngbhziqvmylvjmqonjuk-esiywvnj-gxktshzn 2 drops OP HS #0 ml 04/20/21 09/22/21 Rx 80 0.5 %-1 %-0.5 % eye drops (Refresh Optive Advanced) acetaminophen 500 mg tablet 500 mg PO BID PRN 06/22/21 09/22/21 History (Tylenol Extra Strength) diclofenac sodium 1 % topical gel 4 g EXT QID PRN 06/22/21 09/22/21 History (Voltaren Arthritis Pain) pen needle, diabetic 32 gauge x #400 ea 06/26/21 08/30/21 Rx 5/32" (BD Ultra-Fine Sheridan Pen Needle) insulin aspart U-100 100 unit/mL 15 - 25 unit SQ TID #30 ml MDD 60 07/07/21 09/22/21 Rx (3 mL) subcutaneous pen (Novolog units Flexpen U-100 Insulin aspart) insulin degludec 100 unit/mL (3 30 unit SUBCUT QAM #15 ml 07/07/21 09/22/21 Rx mL) subcutaneous pen (Tresiba FlexTouch U-100 insulin) blood sugar diagnostic (OneTouch #50 ea 07/17/21 08/30/21 Rx Verio test strips) ipratropium 0.5 mg-albuterol 3 mg 3 ml INH QID PRN #90 ml 07/19/21 09/22/21 Rx (2.5 mg base)/3 mL nebulization soln benztropine 1 mg tablet 1 mg PO TID 30 Days #90 tab 07/20/21 09/22/21 Rx teriparatide 20 mcg/dose (620 20 mcg SUBCUT PM #7.44 ml 07/20/21 09/22/21 Rx mcg/2.48 mL) subcutaneous pen injector Blue-Emu Cream 1 applic TOPICAL HS 07/22/21 09/22/21 History calcium carbonate 500 mg calcium 500 mg PO QDL 07/22/21 09/22/21 History (1,250 mg) tablet rifaximin 550 mg tablet (Xifaxan) 550 mg PO BID #60 tab 07/26/21 09/22/21 Rx lactulose 20 gram/30 mL oral 45 ml PO TID #2880 ml 08/02/21 09/22/21 Rx solution oxcarbazepine 300 mg tablet See Rx Instructions .ROUTE 08/14/21 09/22/21 Rx .COMPLEX #90 tab topiramate 100 mg tablet 100 mg PO BID #60 tab 08/14/21 09/22/21 Rx levothyroxine 50 mcg tablet 50 mcg PO QAM #30 tab 09/12/21 09/22/21 Rx (Euthyrox) rimegepant 75 mg disintegrating 75 mg PO .COMPLEX PRN 09/22/21 09/22/21 History tablet (Nurtec ODT) Past Med/Surg History Medical History (Updated 09/22/21 @ 17:56 by Law Freeman MD) Acute alteration in mental status Acute alteration in mental status Acute confusion Acute dehydration Acute hepatic encephalopathy Acute hepatic encephalopathy Acute hepatic encephalopathy Altered mental status Depression Diabetes mellitus Electrolyte abnormality Hyperammonemia Hyperbilirubinemia Nonalcoholic fatty liver disease Parkinsonism Sleepiness Spleen enlargement Thrombocytopenia Urinary tract infection UTI (urinary tract infection) Surgical History Femur fracture, right SPIRAL FRACTURE REPAIRED (HARDWARE REPAIRED) History of ankle surgery RT/LEFT History of appendectomy History of cholecystectomy History of colonoscopy History of esophagogastroduodenoscopy (EGD) History of kyphoplasty History of open reduction and internal fixation (ORIF) procedure RT HIP History of surgery (~06/02/20) screw/plate removal from left humerus History of surgery on arm LEFT (HARDWARE INTACT) History of tooth extraction History of vascular access device right A port Hx of carpal tunnel repair RT/LEFT Hx of cataract extraction RT/LEFT S/P laminectomy lumbar spine S/P nasal surgery nasal bone fracture repair S/P TIFFANIE-BSO (1997) Family History Other Adopted No pertinent family history Social History Smoking Status: Never smoker Tobacco Type: Cigarettes Second Hand Exposure: No; Hx Alcohol Use: No Hx Substance Use: No Preferred Language: Mongolian Communication Ability: Effective Visual Impairment: No Limitations Lead Pharmacy Technician Required: No Beliefs That Will Affect Care: None marital status: Current Living Situation: Spouse Current Living Situation Comment: Lives with current occupational status: unemployed and disabled How many Children do You have: 0 Feels Safe at Home: Yes Seatbelt Use: always Assistive Devices: Walker and Wheelchair Review of Systems Review of Systems: Unobtainable due to cognitive status and Unobtainable due to reduced consciousness Physical Exam Constitutional: WD/WN, vitals as above Eyes: EOM intact bilaterally; no conjunctival abnormality ENMT: external ear and nose normal, oropharynx normal Neck: trachea midline, no thyromegaly normal visual inspection Respiratory: normal respiratory effort, lungs clear to auscultation no respiratory distress Cardiovascular: RRR, no murmur, no edema Gastrointestinal (Abdomen): Inspection/Auscultation: abdomen normal to inspection; abdomen not distended Musculoskeletal: no cyanosis or clubbing, extremities motor strength 5/5 Skin: no rashes, warm and dry Neurologic: moves all extremities and awake Psychiatric: Orientation: alert, oriented to person and cooperative; + not oriented to time Thought Process: + thought process not clear or coherent Results & Data Results & Data ([facility]) Vital Signs (Past 12 Hours) Vital Signs Temp Pulse Pulse Resp BP BP Pulse Ox 09/22/21 15:35 68 25 H 150/77 H 09/22/21 14:16 36.9 C 77 18 148/79 H 97 Code Status & VTE Plan VTE Prophylaxis Plan VTE Prophylaxis will be ordered: Yes PG Care Time/CCT Total # of Minutes Spent Total Time Spent with Patient: Total time spent is greater than 50% in coordination of care (as documented) at patient's floor/unit and/or counseling patient: Coding Level of Care Code 67931 Initial Inpt Care Lvl 3 Diagnoses Acute hepatic encephalopathy K72.00 Parkinsonism G20 Depression F32.9 DVT prophylaxis Z29.9 Nonalcoholic fatty liver disease K76.0 Diabetes mellitus E11.9 Adrenal insufficiency E27.40
[2021-09-22] MEDS ORDERED: ONDANSETRON INJ 2 MG/ML 2 ML VIAL IV PRN (20:21)
[2021-09-22] MEDS ORDERED: GLUCOSE 40% GEL 15 GM TUBE PO PRN (20:21)
[2021-09-22] MEDS ORDERED: GLUCAGON FOR INJ 1 MG VIAL SQ PRN (20:21)
[2021-09-22] MEDS ORDERED: ALBUTEROL HFA 8 GM INHALER INH PRN (20:21)
[2021-09-22] MEDS ORDERED: GLUCOSE 10 TABS/TUBE PO PRN (20:21)
[2021-09-22] MEDS ORDERED: ACETAMINOPHEN 500 MG TAB PO PRN (20:21)
[2021-09-22] MEDS ORDERED: CARBOHYDRATES FOR HYPOGLYCEMIA PO PRN (20:21)
[2021-09-22] MEDS ORDERED: ALBUT/IPRATROP 3MG/0.5MG NEB 3 ML VIAL INH PRN (20:21)
[2021-09-22] MEDS ORDERED: DEXTROSE 50% 50 ML SYRINGE IV PRN (20:21)
[2021-09-22] MEDS: HYDROCORTISONE 10 MG TAB PO SCH (22:20)
[2021-09-22] MEDS: BENZTROPINE MESYLATE 1 MG TAB PO SCH (22:20)
[2021-09-22] MEDS: ACETAMINOPHEN 500 MG TAB PO SCH (22:20)
[2021-09-22] MEDS: MELATONIN 3 MG TAB PO SCH (22:21)
[2021-09-22] MEDS: levETIRAcetam 500 MG TAB PO SCH (22:21)
[2021-09-22] MEDS: rOPINIRole HCL 0.25 MG TABLET PO SCH (22:22)
[2021-09-22] MEDS: OXcarbazepine 150 MG TABLET PO SCH (22:23)
[2021-09-22] MEDS: rifAXIMin 550 MG TABLET PO SCH (22:23)
[2021-09-22] MEDS: LACTULOSE SYRUP 30 GM/45 ML UDP PO SCH (22:24)
[2021-09-22] MEDS: TOPIRAMATE 100 MG TAB PO SCH (22:24)
[2021-09-22] MEDS: INSULIN ASPART PER UNIT SC SCH (23:08)
[2021-09-23 07:12] LABS: Hematocrit (blood only) 31.6 % (37-47); Hemoglobin 10.9 g/dL (12.0-16.0); Mean Corpuscular Hgb Conc 34.5 g/dL (32-36); Mean Corpuscular Volume 101.6 fL (80-100); RDW Coefficient of Variation 15.4 % (11.5-14.5); RDW Standard Deviation 55.6 fL (36.4-46.3); Red Blood Count 3.11 M/uL (4.2-5.4); White Blood Count 4.91 K/uL (4.8-10.8)
[2021-09-23] MEDS: LEVOTHYROXINE SODIUM 50 MCG TABLET PO SCH (07:13)
[2021-09-23 07:38] LABS: Mean Platelet Volume 10.7 fL (7.4-10.4); Platelet Count 91 K/uL (130-400); Platelet Estimate Decreased (Normal)
[2021-09-23 07:47] LABS: Albumin Globulin Ratio 1.3 (0.9-2); BUN Creatinine Ratio 22.6 (10-20); Bilirubin,Total 1.7 mg/dl (0.2-1.0); Calcium 7.8 mg/dl (8.5-10.1); Creatinine Clr Calc Pharmacy 108.1 ml/min; Est GFR (African American) 117.7 ml/min; Est GFR (Non-African American) 101.5 ml/min; Globulin 2.4 gm/dl (2.5-4.0); Magnesium 1.5 mg/dl (1.7-2.4); Potassium 3.6 mmol/L (3.5-5.1); Total Protein 5.4 gm/dl (6.0-8.3)
[2021-09-23] MEDS: levETIRAcetam 500 MG TAB PO SCH ×2 (08:52→20:56)
[2021-09-23] MEDS: HYDROCORTISONE 10 MG TAB PO SCH ×2 (08:52→20:54)
[2021-09-23] MEDS: ESCITALOPRAM OXALATE 20 MG TAB PO SCH (08:52)
[2021-09-23] MEDS: BENZTROPINE MESYLATE 1 MG TAB PO SCH ×3 (08:52→20:53)
[2021-09-23] MEDS: TOPIRAMATE 100 MG TAB PO SCH ×2 (08:52→20:58)
[2021-09-23] MEDS: OXcarbazepine 150 MG TABLET PO SCH ×2 (08:53→20:57)
[2021-09-23] MEDS: rOPINIRole HCL 0.25 MG TABLET PO SCH ×2 (08:53→20:58)
[2021-09-23] MEDS: rifAXIMin 550 MG TABLET PO SCH ×2 (08:53→20:57)
[2021-09-23] MEDS: LACTULOSE SYRUP 30 GM/45 ML UDP PO SCH ×3 (08:54→20:55)
[2021-09-23] MEDS: PRAVASTATIN SOD 20 MG TAB PO SCH (08:54)
[2021-09-23] MEDS: INSULIN ASPART PER UNIT SC SCH ×4 (09:22→20:42)
[2021-09-23] MEDS: INSULIN GLARGINE SOLOSTAR 100 UNITS/ML 3 ML PEN SQ SCH (09:27)
--- NOTE | 2021-09-23 14:25 | Hospitalist Progress Note ---
Date of Service September 23, 2021 Assessment & Plan (1) Acute hepatic encephalopathy: Plan: Likely due to non-compliance with medication. - Continue home lactulose dosing - Continue home rifaximin - Back to baseline today. (2) Nonalcoholic fatty liver disease: Plan: With cirrhosis. WBC, hgb, and platelets all at baseline. - No inpatient needs (3) Diabetes mellitus: Plan: A1c was 5.2% in 08/2021. - Lower long-acting to 20 units instead of home 30 units QAM - Sliding scale insulin - Hold other home DM meds -> Intermittently refusing her doses because she doesn't like to get stuck with the needle and/or because it's not her home degludec. Explained these act the same way. BSs have been 110 - 140 in the last 24 hours. (4) Adrenal insufficiency: Plan: Suspected. Notes as far back as 03/2020 indicate some question of if this is true and that repeat testing is planned. However, I do not see any repeat testing. - Continue home hydrocortisone - Can plan to reach out to endocrinology on Friday (5) Parkinsonism: Plan: From her seizure and other psychiatric medications. - Continue: * Ropinirole 0.25 mg twice daily * Topiramate 100 mg 3 times daily * Keppra 1500 mg twice daily * Benztropine 1 mg 3 times daily (6) Depression: Plan: - Continue home meds (7) DVT prophylaxis: Plan: SCDs, early ambulation Admission and Anticipated Discharge Date Admission Date: September 22, 2021 Subjective At baseline today. No major issues. She does not want to take Lantus because it is not her home medication. Reports no fevers/chills, chest pain, shortness of breath, abdominal pain, nausea, or vomiting. Physical Exam Constitutional: WD/WN, vitals as above Eyes: EOM intact bilaterally; no conjunctival abnormality ENMT: external ear and nose normal, oropharynx normal Neck: trachea midline, no thyromegaly normal visual inspection Respiratory: normal respiratory effort, lungs clear to auscultation no respiratory distress Cardiovascular: RRR, no murmur, no edema Gastrointestinal (Abdomen): Inspection/Auscultation: abdomen normal to inspection; abdomen not distended Musculoskeletal: no cyanosis or clubbing, extremities motor strength 5/5 Skin: no rashes, warm and dry Neurologic: moves all extremities and awake Psychiatric: Orientation: alert, oriented to person, oriented to time and cooperative Results & Data Results & Data ([facility]) Vital Signs (Past 12 Hours) Vital Signs Temp Pulse Resp BP Pulse Ox 09/23/21 07:16 37 C 69 18 156/81 H 93 PG Care Time/CCT Total # of Minutes Spent Total Time Spent with Patient: Total time spent is greater than 50% in coordination of care (as documented) at patient's floor/unit and/or counseling patient: Coding Level of Care Code 45152 Subseq Hosp Care Lvl 2 Diagnoses Acute hepatic encephalopathy K72.00 Nonalcoholic fatty liver disease K76.0 Diabetes mellitus E11.9 Adrenal insufficiency E27.40 Parkinsonism G20 Depression F32.9 DVT prophylaxis Z29.9
--- NOTE | 2021-09-23 20:26 | Electrocardiogram Report ---
Test Reason : Blood Pressure : / mmHG Vent. Rate : 076 BPM Atrial Rate : 076 BPM P-R Int : 164 ms QRS Dur : 090 ms QT Int : 394 ms P-R-T Axes : 021 -21 011 degrees QTc Int : 443 ms Normal sinus rhythm Voltage criteria for left ventricular hypertrophy Abnormal ECG When compared with ECG of 13-AUG-2021 14:31, No significant change was found Confirmed by Juliano Mccracken ([id number]) on 09/23/2021 8:25:58 PM Referred By: Confirmed By:Juliano Mccracken
[2021-09-23] MEDS: ACETAMINOPHEN 500 MG TAB PO SCH (20:53)
[2021-09-23] MEDS: MELATONIN 3 MG TAB PO SCH (20:56)
[2021-09-24] MEDS ORDERED: HEPARIN 100 UNIT/ML 5ML FLUSH FLUSH PRN (00:12)
[2021-09-24] MEDS: LEVOTHYROXINE SODIUM 50 MCG TABLET PO SCH (06:38)
[2021-09-24] MEDS: TOPIRAMATE 100 MG TAB PO SCH (09:46)
[2021-09-24] MEDS: rOPINIRole HCL 0.25 MG TABLET PO SCH (09:46)
[2021-09-24] MEDS: rifAXIMin 550 MG TABLET PO SCH (09:46)
[2021-09-24] MEDS: OXcarbazepine 150 MG TABLET PO SCH (09:47)
[2021-09-24] MEDS: BENZTROPINE MESYLATE 1 MG TAB PO SCH (09:47)
[2021-09-24] MEDS: HYDROCORTISONE 10 MG TAB PO SCH (09:47)
[2021-09-24] MEDS: ESCITALOPRAM OXALATE 20 MG TAB PO SCH (09:47)
[2021-09-24] MEDS: levETIRAcetam 500 MG TAB PO SCH (09:47)
[2021-09-24] MEDS: LACTULOSE SYRUP 30 GM/45 ML UDP PO SCH (09:48)
[2021-09-24] MEDS: INSULIN ASPART PER UNIT SC SCH ×2 (10:05→12:51)
[2021-09-24] MEDS: INSULIN GLARGINE SOLOSTAR 100 UNITS/ML 3 ML PEN SQ SCH (10:06)
[2021-09-24] MEDS: PRAVASTATIN SOD 20 MG TAB PO SCH (10:45)
[2021-09-24 11:18] LABS: Hemoglobin 10.8 g/dL (12.0-16.0); Mean Corpuscular Hemoglobin 34.6 pg (25-34); Mean Corpuscular Hgb Conc 34.8 g/dL (32-36); Mean Corpuscular Volume 99.4 fL (80-100); RDW Coefficient of Variation 14.7 % (11.5-14.5); RDW Standard Deviation 52.3 fL (36.4-46.3); Red Blood Count 3.12 M/uL (4.2-5.4); White Blood Count 4.02 K/uL (4.8-10.8)
[2021-09-24 11:28] LABS: Mean Platelet Volume 9.9 fL (7.4-10.4); Platelet Count 82 K/uL (130-400)
[2021-09-24 11:36] LABS: Est GFR (Non-African American) 104.4 ml/min; Potassium 3.5 mmol/L (3.5-5.1)
[2021-09-24 11:37] LABS: BUN Creatinine Ratio 21.1 (10-20); Calcium 7.9 mg/dl (8.5-10.1); Creatinine Clr Calc Pharmacy 117.6 ml/min; Magnesium 1.5 mg/dl (1.7-2.4)
--- NOTE | 2021-09-24 16:22 | Discharge Summary ---
Date of Service September 24, 2021 Admission HPI Per Admitting Provider 55yo F w/ hx of cirrhosis who presents with hepatic encephalopathy. The ED provider was able to speak with the who reports that she has become more lethargic over the last few days. The patient is a poor historian, but to the best of her recollection, she has not had a BM in about 4 days. She does not know if she is taking her lactulose and cannot tell me if she has been taking more to try to have a BM. Reports no fevers/chills, chest pain, shortness of breath, abdominal pain, nausea, or vomiting. Principal Diagnosis Hepatic encephalopathy Discharge Exam Constitutional WD/WN, vitals as above Eyes EOM intact bilaterally; no conjunctival abnormality ENMT external ear and nose normal, oropharynx normal Neck trachea midline, no thyromegaly normal visual inspection Respiratory normal respiratory effort, lungs clear to auscultation no respiratory distress Cardiovascular RRR, no murmur, no edema Gastrointestinal (Abdomen) Inspection/Auscultation: abdomen normal to inspection; abdomen not distended Musculoskeletal no cyanosis or clubbing, extremities motor strength 5/5 Skin no rashes, warm and dry Neurologic moves all extremities and awake Psychiatric Orientation: alert, oriented to person, oriented to time and cooperative Thought Process: + thought process not clear or coherent Discharge Data Allergies Allergy/AdvReac Type Severity Reaction Status Date / Time metoclopramide Allergy Severe SEIZURES Verified 09/22/21 16:41 metronidazole Allergy Severe SEIZURE Verified 09/22/21 16:41 tramadol Allergy Severe SEIZURES Verified 09/22/21 16:41 amoxicillin Allergy Intermediate SEE COMMENT Verified 09/22/21 16:41 baclofen Allergy Intermediate RASH Verified 09/22/21 16:41 butalbital Allergy Intermediate HIVES Verified 09/22/21 16:41 dicyclomine Allergy Intermediate HIVES Verified 09/22/21 16:41 nitrofurantoin Allergy Intermediate HIVES/RASH/SEVERE Verified 09/22/21 16:41 [From Macrobid] ITCHING pollen extracts Allergy Intermediate Hives Verified 09/22/21 16:41 Sulfa (Sulfonamide Allergy Intermediate CAUSES Verified 09/22/21 16:41 Antibiotics) BLACK STOOLS Tetracyclines Allergy Intermediate DOXYCYCLINE Verified 09/22/21 16:41 -HIVES adhesive Allergy Mild RASH, Verified 09/22/21 16:41 DUODERM=RED,ITCHY celecoxib Allergy Mild HIVES Verified 09/22/21 16:41 sulindac Allergy Mild ALLERGY Verified 09/22/21 16:41 LISTED "CLONDORAL"--HIVES Cephalosporins AdvReac Severe TURNS Verified 09/22/21 16:41 STOOL VERY DARK paroxetine [From Paxil] AdvReac Severe Vomiting Verified 09/22/21 16:41 dextromethorphan AdvReac Mild Vomiting Verified 09/22/21 16:41 Consultations 09/22/21 16:53 ED Decision to Admit Stat Ordered Studies 09/22/21 15:39 CT head/brain wo con Stat Hospital Course (1) Acute hepatic encephalopathy: Likely due to non-compliance with medication. - Continue home lactulose dosing - Continue home rifaximin - Back to baseline today on home lactulose. As ever, encouraged compliance with her home regimen. (2) Nonalcoholic fatty liver disease: With cirrhosis. WBC, hgb, and platelets all at baseline. - No inpatient needs (3) Diabetes mellitus: A1c was 5.2% in 08/2021. - Lower long-acting to 20 units instead of home 30 units QAM - Sliding scale insulin - Hold other home DM meds -> Intermittently refusing her doses because she doesn't like to get stuck with the needle and/or because it's not her home degludec. Explained these act the same way. BSs have been 110 - 140 in the last 24 hours. (4) Adrenal insufficiency: Suspected. Notes as far back as 03/2020 indicate some question of if this is true and that repeat testing is planned. However, I do not see any repeat testing. - Continue home hydrocortisone - Can follow up with endocrinology as outpatient. (5) Parkinsonism: From her seizure and other psychiatric medications. - Continue: * Ropinirole 0.25 mg twice daily * Topiramate 100 mg 3 times daily * Keppra 1500 mg twice daily * Benztropine 1 mg 3 times daily (6) Depression: - Continue home meds (7) DVT prophylaxis: SCDs, early ambulation Total Time Total Time Spent Total Time Spent (In Minutes): 35 Discharge Plan Discharge Items Patient Disposition: Home - Home Health Services Reason For Visit: HEPATIC ENCEPHALOPATHY Discharge Diagnosis: Hepatic encephalopathy Activity: Resume your previous activity Non-emergency contact: Primary Care Provider Call non-emergency contact if: your symptoms worsen Follow-up/Referrals: Geri Mcgraw PA-C [Primary Care Provider] - 10/02/21 2:10 pm (follow up with Dr. Landis on October 02, 2021 at 2:10 pm at the [facility] office.) Diet: Carb Consistent or DM2 and Low Fat Addtl Attending Provider Instructions: Please take your lactulose. Your mental status cleared up with your usually prescribed dosage. Pending Studies at Discharge: No Stand-Alone Forms: My [facility] [employer], Smoking Cessation Medications and DC Order Prescriptions: Continued albuterol sulfate 90 mcg/actuation HFA aerosol inhaler 2 puff inhalation Q4H PRN (Reason: shortness of breath) Qty: 1 RF: 3 omeprazole 40 mg capsule,delayed release(DR/EC) 40 mg PO QAM Qty: 90 RF: 1 ropinirole 0.25 mg tablet 0.25 mg PO BID 90 Days Qty: 180 RF: 1 (DME) pen needle, diabetic [BD Ultra-Fine Sheridan Pen Needle] 32 gauge x 5/32" needle See Rx Instructions .Route Qty: 400 RF: 3 insulin aspart U-100 [Novolog Flexpen U-100 Insulin] 100 unit/mL (3 mL) insulin pen 15 - 25 unit SQ TID MDD 60 units Qty: 30 RF: 5 Tresiba FlexTouch U-100 100 unit/mL (3 mL) insulin pen 30 unit subcut QAM Qty: 15 RF: 1 ipratropium-albuterol 0.5 mg-3 mg(2.5 mg base)/3 mL solution for nebulization 3 ml INH QID PRN (Reason: wheezing) Qty: 90 RF: 0 teriparatide 20 mcg/dose (620mcg/2.48mL) pen injector 20 mcg subcut PM Qty: 7.44 RF: 0 benztropine 1 mg tablet 1 mg PO TID 30 Days Qty: 90 RF: 5 Xifaxan 550 mg tablet 550 mg PO BID Qty: 60 RF: 5 topiramate 100 mg tablet 100 mg PO BID Qty: 60 RF: 5 oxcarbazepine 300 mg tablet See Rx Instructions .ROUTE .COMPLEX Qty: 90 RF: 5 levothyroxine [Euthyrox] 50 mcg tablet 50 mcg PO QAM Qty: 30 RF: 2 levetiracetam 750 mg tablet 1,500 mg PO BID 30 Days Qty: 120 RF: 5 cholecalciferol (vitamin D3) [Vitamin D3] 25 mcg (1,000 unit) capsule 5,000 unit PO QDL RF: 0 promethazine 25 mg tablet 25 mg PO Q8H PRN (Reason: nausea and vomiting) Qty: 10 RF: 0 ascorbate calcium (vitamin C) 500 mg tablet 500 mg PO QDL RF: 0 vitamin E (dl, acetate) 180 mg (400 unit) capsule 180 mg PO Q OTHER DAY RF: 0 (DME) OneTouch Verio test strips Strip See Rx Instructions .Route Qty: 50 RF: 5 epinephrine [EpiPen 2-Garret] 0.3 mg/0.3 mL auto-injector 0.3 mg IM Q10M PRN (Reason: Anaphylaxis) RF: 0 lecithin 1,200 mg capsule 1,200 mg PO QDL RF: 0 cranberry 400 mg capsule 400 mg PO BIDM RF: 0 multivitamin [Multiple Vitamins] Tablet 1 tab PO QDL RF: 0 zinc 50 mg Tablet 50 mg PO QDL RF: 0 vitamin A 8,000 unit Capsule 8,000 unit PO QDL RF: 0 vitamin B complex Tablet 1 tab PO QDL RF: 0 Probiotic 3 billion cell Capsule 1 mmu cells PO QDL RF: 0 fexofenadine 60 mg Tablet 60 mg PO QAM RF: 0 hydrocortisone 10 mg tablet See Rx Instructions .ROUTE .COMPLEX RF: 0 calcium carbonate 500 mg calcium (1,250 mg) Tablet 500 mg PO QDL RF: 0 Blue-Emu Cream 1 applic topical HS RF: 0 lactulose 20 gram/30 mL solution 45 ml PO TID Qty: 2880 RF: 1 Nurtec ODT 75 mg tablet,disintegrating 75 mg PO .COMPLEX PRN (Reason: Migraine Headache) RF: 0 pravastatin 20 mg tablet 20 mg PO QAM RF: 0 escitalopram oxalate 20 mg tablet 20 mg PO QAM RF: 0 melatonin 5 mg tablet 10 mg PO HS Qty: 1 RF: 0 magnesium oxide 400 mg (241.3 mg magnesium) tablet 400 mg PO BID Qty: 0 RF: 0 acetaminophen [Tylenol Extra Strength] 500 mg Tablet 1,000 mg PO HS Qty: 0 RF: 0 Refresh Optive Advanced 0.5-1-0.5 % drops 2 drops OP HS Qty: 0 RF: 0 acetaminophen [Tylenol Extra Strength] 500 mg tablet 500 mg PO BID PRN (Reason: Pain) RF: 0 diclofenac sodium [Voltaren Arthritis Pain] 1 % gel 4 g EXT QID PRN (Reason: Pain) RF: 0 Discharge Orders: Discharge Order (Routine); Ordered 09/24/21 Ordered By: Law Freeman Admission Data Admit Date/Time: 09/22/21 17:44 Attending Provider: Law Freeman Admit Provider: Law Freeman Primary Care Provider: Geri Mcgraw Other Providers: Law Freeman Other Interventions: Discharge Summary Assessment (RN) Last Done: 09/24/21 12:34 Coding Level of Care Code D/C DAY MANAGEMENT >30 MINS Diagnoses Acute hepatic encephalopathy K72.00 Nonalcoholic fatty liver disease K76.0 Diabetes mellitus E11.9 Adrenal insufficiency E27.40 Parkinsonism G20 Depression F32.9 DVT prophylaxis Z29.9
== END 2021-09-24 13:59 | disposition home health service (06) ==
LOC: ED 14:10 → 3W 17:44 → INTOOBSV 17:44 → 3W 19:39

== ENCOUNTER 2021-10-13 21:38 | Observation (INO) ==
[2021-10-13] MEDS ORDERED: LACTULOSE SYRUP 20 GM/30 ML UDC PO ONE (23:20)
--- NOTE | 2021-10-13 23:22 | Emergency Department Note ---
Impression & Plan Acute hepatic encephalopathy ADMIT ED Provider Note HPI: Patient is a 55-year-old female with history of hepatic encephalopathy, presents emergency department with chief complaint of constipation and mild confusion beyond baseline over the past week. Patient states she has not had a regular bowel movement for about the past 2 days. Her at the bedside is ass isting with history. Patient has had some increased confusion over about the past week, she has had some difficulty with bowel movements over the past 2 days. According to the patient's she has been taking her lactulose. On arrival the patient is able to answer simple questions appropriately, she does not exhibit any focal deficits, this is consistent with previous presentations in the past to this hospital for hepatic encephalopathy. ROS: -Neuro: Confusion -GI: Constipation *10 point review systems was conducted and is otherwise negative unless stated above *Outpatient medications and allergy history reviewed PE: General: Drowsy appearing, answering questions HEENT: Normocephalic, atraumatic Eyes: Extraocular eye movement is intact, no scleral erythema Pulmonary: Clear to auscultation bilaterally, no wheezing Cardio: Regular rate and rhythm GI: Abdomen is soft, nontender : No suprapubic tenderness MSK: No evidence of trauma or malformation of the extremities, no edema Skin: No evidence of rash Neuro: Alert, no focal deficits Psychiatric: Cooperative second helper: - An order was placed for continuous cardiac monitoring - Patient was noted to be in sinus rhythm with rate of 65 Medical Decision Making: Abdomen is soft and nontender on my exam, patient's ammonia level is elevated at 173, she was able to take lactulose by mouth this evening and was able to answer most my questions appropriately on arrival. This is consistent with previous p resentations that she has had for hepatic encephalopathy, case was discussed with the on-call hospitalist and the patient was admitted in stable condition for further care. Diagnosis: 1. Hepatic encephalopathy, acute on chronic 2. Elevated ammonia level Disposition: Admission Kenroy Cook DO Emergency Medicine Past Med/Surg History Medical History (Updated 10/14/21 @ 01:07 by Kenroy Cook DO) Acute alteration in mental status Acute alteration in mental status Acute confusion Acute dehydration Acute hepatic encephalopathy Acute hepatic encephalopathy Acute hepatic encephalopathy Altered mental status Depression Diabetes mellitus Electrolyte abnormality Hyperammonemia Hyperbilirubinemia Nonalcoholic fatty liver disease Parkinsonism Sleepiness Spleen enlargement Thrombocytopenia Urinary tract infection UTI (urinary tract infection) Surgical History Femur fracture, right SPIRAL FRACTURE REPAIRED (HARDWARE REPAIRED) History of ankle surgery RT/LEFT History of appendectomy History of cholecystectomy History of colonoscopy History of esophagogastroduodenoscopy (EGD) History of kyphoplasty History of open reduction and internal fixation (ORIF) procedure RT HIP History of surgery (~06/02/20) screw/plate removal from left humerus History of surgery on arm LEFT (HARDWARE INTACT) History of tooth extraction History of vascular access device right A port Hx of carpal tunnel repair RT/LEFT Hx of cataract extraction RT/LEFT S/P laminectomy lumbar spine S/P nasal surgery nasal bone fracture repair S/P TIFFANIE-BSO (1997) Family History Other Adopted No pertinent family history Social History Smoking Status: Never smoker Tobacco Type: Cigarettes Second Hand Exposure: No; Hx Alcohol Use: No Hx Substance Use: No Preferred Language: Welsh Communication Ability: Effective Visual Impairment: No Limitations Fire Pilot Required: No Beliefs That Will Affect Care: None marital status: Current Living Situation: Spouse Current Living Situation Comment: Lives with current occupational status: unemployed and disabled How many Children do You have: 0 Feels Safe at Home: Yes Seatbelt Use: always Assistive Devices: Bedside Commode, Cane, Walker and Wheelchair Allergies Allergies Allergy/AdvReac Type Severity Reaction Status Date / Time metoclopramide Allergy Severe SEIZURES Verified 10/13/21 23:08 metronidazole Allergy Severe SEIZURE Verified 10/13/21 23:08 tramadol Allergy Severe SEIZURES Verified 10/13/21 23:08 amoxicillin Allergy Intermediate SEE COMMENT Verified 10/13/21 23:08 baclofen Allergy Intermediate RASH Verified 10/13/21 23:08 butalbital Allergy Intermediate HIVES Verified 10/13/21 23:08 dicyclomine Allergy Intermediate HIVES Verified 10/13/21 23:08 nitrofurantoin Allergy Intermediate HIVES/RASH/SEVERE Verified 10/13/21 23:08 [From Macrobid] ITCHING pollen extracts Allergy Intermediate Hives Verified 10/13/21 23:08 Sulfa (Sulfonamide Allergy Intermediate CAUSES Verified 10/13/21 23:08 Antibiotics) BLACK STOOLS Tetracyclines Allergy Intermediate DOXYCYCLINE Verified 10/13/21 23:08 -HIVES adhesive Allergy Mild RASH, Verified 10/13/21 23:08 DUODERM=RED,ITCHY celecoxib Allergy Mild HIVES Verified 10/13/21 23:08 sulindac Allergy Mild ALLERGY Verified 10/13/21 23:08 LISTED "CLONDORAL"--HIVES Cephalosporins AdvReac Severe TURNS Verified 10/13/21 23:08 STOOL VERY DARK paroxetine [From Paxil] AdvReac Severe Vomiting Verified 10/13/21 23:08 dextromethorphan AdvReac Mild Vomiting Verified 10/13/21 23:08 Home Meds Home Medications Medication Instructions Recorded Confirmed multivitamin (Multiple Vitamins) 1 tab PO QDL 12/26/17 10/13/21 lactobacillus combination no.4 3 1 mmu cells PO QDL 09/20/18 10/13/21 billion cell capsule (Probiotic) vitamin A 2,400 mcg capsule 8,000 unit PO QDL 09/20/18 10/13/21 vitamin B complex 1 tab PO QDL 09/20/18 10/13/21 zinc 50 mg tablet 50 mg PO QDL 02/09/19 10/13/21 epinephrine 0.3 mg/0.3 mL 0.3 mg IM Q10M PRN Anaphylaxis 04/02/19 10/13/21 injection, auto-injector (EpiPen 2-Garret) lecithin 1,200 mg capsule 1,200 mg PO QDL 04/29/19 10/13/21 fexofenadine 60 mg tablet 60 mg PO QAM 04/12/20 10/13/21 cranberry 400 mg capsule 400 mg PO BIDM 06/08/20 10/13/21 ascorbate calcium (vitamin C) 500 500 mg PO QDL 11/16/20 10/13/21 mg tablet vitamin E (dl, acetate) 180 mg 180 mg PO Q OTHER DAY 11/16/20 10/13/21 (400 unit) capsule cholecalciferol (vitamin D3) 25 5,000 unit PO QDL 11/30/20 10/13/21 mcg (1,000 unit) capsule (Vitamin D3) hydrocortisone 10 mg tablet See Rx Instructions .Route .COMPLEX 11/30/20 10/13/21 pravastatin 20 mg tablet 20 mg PO QAM 12/05/20 10/13/21 escitalopram oxalate 20 mg tablet 20 mg PO QAM 12/29/20 10/13/21 acetaminophen 500 mg tablet 500 mg PO BID PRN Pain 06/22/21 10/13/21 (Tylenol Extra Strength) diclofenac sodium 1 % topical gel 4 g EXT QID PRN Pain 06/22/21 10/13/21 (Voltaren Arthritis Pain) Blue-Emu Cream 1 applic topical HS 07/22/21 10/13/21 calcium carbonate 500 mg calcium 500 mg PO QDL 07/22/21 10/13/21 (1,250 mg) tablet rimegepant 75 mg disintegrating 75 mg PO .COMPLEX PRN Migraine 09/22/21 10/13/21 tablet (Nurtec ODT) Headache Previous Rx's Medication Instructions Recorded albuterol sulfate 90 mcg/actuation 2 puff inhalation Q4H PRN 05/31/20 aerosol inhaler shortness of breath #1 inhaler promethazine 25 mg tablet 25 mg PO Q8H PRN nausea and 10/11/20 vomiting #10 tabs levetiracetam 750 mg tablet 1,500 mg PO BID 30 days #120 tabs 10/30/20 omeprazole 40 mg capsule,delayed 40 mg PO QAM #90 caps 11/15/20 release magnesium oxide 400 mg (241.3 mg 400 mg PO BID #0 tabs 01/02/21 magnesium) tablet melatonin 5 mg tablet 10 mg PO HS #1 tab 01/02/21 ropinirole 0.25 mg tablet 0.25 mg PO BID 90 days #180 tabs 01/10/21 acetaminophen 500 mg tablet 1,000 mg PO HS #0 tabs 04/20/21 (Tylenol Extra Strength) rdhyyvbyxqeucwoiysjslv-miyrrkjn-kfqbtoft 2 drops ophthalmic (eye) HS #0 mL 04/20/21 80 0.5 %-1 %-0.5 % eye drops (Refresh Optive Advanced) pen needle, diabetic 32 gauge x #400 ea 06/26/21" (BD Ultra-Fine [place] Pen Needle) insulin aspart U-100 100 unit/mL 15 - 25 unit (0.15 - 0.25 mL) 07/07/21 (3 mL) subcutaneous pen (Novolog subcut TID #30 mL Flexpen U-100 Insulin aspart) insulin degludec 100 unit/mL (3 30 unit (0.3 mL) subcut QAM #15 mL 07/07/21 mL) subcutaneous pen (Tresiba FlexTouch U-100 insulin) blood sugar diagnostic (OneTouch #50 ea 07/17/21 Verio test strips) ipratropium 0.5 mg-albuterol 3 mg 3 ml inhalation QID PRN wheezing 07/19/21 (2.5 mg base)/3 mL nebulization #90 mL soln benztropine 1 mg tablet 1 mg PO TID 30 days #90 tabs 07/20/21 teriparatide 20 mcg/dose (620 20 mcg (0.08 mL) subcut PM #7.44 mL 07/20/21 mcg/2.48 mL) subcutaneous pen injector rifaximin 550 mg tablet (Xifaxan) 550 mg PO BID hepatic 07/26/21 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 #60 tabs lactulose 20 gram/30 mL oral 45 ml PO TID #2,880 mL 08/02/21 solution oxcarbazepine 300 mg tablet See Rx Instructions .Route 08/14/21 .COMPLEX #90 tabs topiramate 100 mg tablet 100 mg PO BID #60 tabs 08/14/21 levothyroxine 50 mcg tablet 50 mcg PO QAM #30 tabs 09/12/21 (Euthyrox) Results & Data (ED) Vital Signs Vital Signs - 24 hr 10/13/21 21:41 10/14/21 00:10 Temperature 37.3 C Temperature Source Temporal Artery Scan Pulse Rate 64 Pulse Rate [Finger] 63 Respiratory Rate 18 20 Respiratory Effort / Characteristics Non-Labored Spontaneous Non-Labored Spontaneous Respiratory Depth Normal Normal Respiratory Pattern Regular Blood Pressure 134/75 Blood Pressure [Left Arm] 128/69 Blood Pressure Mean 94 Blood Pressure Mean [Left Arm] 88 Blood Pressure Position Sitting Pulse Oximetry 97 99 Oxygen Delivery Method Room Air Room Air Sepsis Recent Fever Within 48 Hours No Sepsis New/Unexplained Change in Mental Status N/A Sepsis Action Taken by Nursing No Action Required Laboratory Data Result diagrams: 10/13/21 23:59 10/14/21 Unknown Lab Results 10/13/21 10/14/21 10/14/21 Range/Units 23:59 Unknown Unknown WBC 3.96 L (4.8-10.8) K/ul RBC 2.79 L (3.93-5.22) M/uL Hgb 9.8 L (12.0-16.0) g/dl Hct 29.2 L (34.1-44.9) % MCV 104.7 H (80.0-100.0) fL MCH 35.1 H (25.0-34.0) pg MCHC 33.6 (32.0-36.0) g/dL RDW Std Deviation 57.6 H (36.4-46.3) fL RDW Coeff of Irina 15.1 H (11.5-14.5) % Plt Count 76 L (130-400) K/uL MPV 10.9 (9.4-12.3) fL Immature Gran % (Auto) 0.3 % Neut % (Auto) 56.8 % Lymph % (Auto) 28.3 % Sutter % (Auto) 10.6 % Eos % (Auto) 3.0 % Baso % (Auto) 1.0 % Neut # (Auto) 2.25 (1.4-6.5) K/uL Lymph # (Auto) 1.12 L (1.2-3.4) K/uL Sutter # (Auto) 0.42 (0.24-0.82) K/uL Eos # (Auto) 0.12 (0-0.50) K/uL Baso # (Auto) 0.04 (0-0.2) K/uL Immature Gran # (Auto) 0.01 (0.00-0.02) K/uL RBC Morphology Unremarkable Sodium 142 (136-145) mmol/L Potassium 3.0 L (3.5-5.1) mmol/L Chloride 118 H (98-107) mmol/L Carbon Dioxide 21 (21-32) mmol/L Anion Gap 3 (3-11) BUN 11 (6-23) mg/dl Creatinine 0.49 L (0.6-1.2) mg/dl Est Cr Clr Drug Dosing Not Reportable Est GFR ( Amer) 127.1 ml/min Est GFR (Non-Af Amer) 109.7 ml/min BUN/Creatinine Ratio 22.4 H (10-20) Glucose 151 H (70-99(Fasting)) mg/dl Calcium 6.4 L (8.5-10.1) mg/dl Total Bilirubin 1.0 (0.2-1.0) mg/dl AST 25 (13-39) U/L ALT 24 (7-52) U/L Alkaline Phosphatase 132 H (34-104) U/L Ammonia 173.0 H (18-72) umol/L Total Protein 4.5 L (6.0-8.3) gm/dl Albumin 2.5 L (3.4-5.0) gm/dl Globulin 2.0 L (2.5-4.0) gm/dl Albumin/Globulin Ratio 1.3 (0.9-2) Lipase 17 (11-82) U/L SARS-CoV-2, RNA, NAAT (NEGATIVE) 10/14/21 Range/Units Unknown WBC (4.8-10.8) K/ul RBC (3.93-5.22) M/uL Hgb (12.0-16.0) g/dl Hct (34.1-44.9) % MCV (80.0-100.0) fL MCH (25.0-34.0) pg MCHC (32.0-36.0) g/dL RDW Std Deviation (36.4-46.3) fL RDW Coeff of Irina (11.5-14.5) % Plt Count (130-400) K/uL MPV (9.4-12.3) fL Immature Gran % (Auto) % Neut % (Auto) % Lymph % (Auto) % Sutter % (Auto) % Eos % (Auto) % Baso % (Auto) % Neut # (Auto) (1.4-6.5) K/uL Lymph # (Auto) (1.2-3.4) K/uL Sutter # (Auto) (0.24-0.82) K/uL Eos # (Auto) (0-0.50) K/uL Baso # (Auto) (0-0.2) K/uL Immature Gran # (Auto) (0.00-0.02) K/uL RBC Morphology Sodium (136-145) mmol/L Potassium (3.5-5.1) mmol/L Chloride (98-107) mmol/L Carbon Dioxide (21-32) mmol/L Anion Gap (3-11) BUN (6-23) mg/dl Creatinine (0.6-1.2) mg/dl Est Cr Clr Drug Dosing Est GFR ( Amer) ml/min Est GFR (Non-Af Amer) ml/min BUN/Creatinine Ratio (10-20) Glucose (70-99(Fasting)) mg/dl Calcium (8.5-10.1) mg/dl Total Bilirubin (0.2-1.0) mg/dl AST (13-39) U/L ALT (7-52) U/L Alkaline Phosphatase (34-104) U/L Ammonia (18-72) umol/L Total Protein (6.0-8.3) gm/dl Albumin (3.4-5.0) gm/dl Globulin (2.5-4.0) gm/dl Albumin/Globulin Ratio (0.9-2) Lipase (11-82) U/L SARS-CoV-2, RNA, NAAT NEGATIVE (NEGATIVE) Administered Medications Discontinued Medications Lactulose (Lactulose Syrup 20 Gm/30 Ml Udc) 20 gm PO NOW ONE Stop: 10/13/21 23:21 Last Admin: 10/14/21 00:49 Dose: 20 gm Documented By: DAMEON Discharge Plan Visit Data Chief Complaint: Constipation Stated Complaint: CONSTIPATION ED Provider: Kenroy Cook Discharge Problem: Acute hepatic encephalopathy Forms Stand Alone Forms: My [facility] [place] [employer] Prescriptions Prescriptions: No Action albuterol sulfate 90 mcg/actuation HFA aerosol inhaler 2 puff inhalation Q4H PRN (Reason: shortness of breath) Qty: 1 3RF omeprazole 40 mg capsule,delayed release(DR/EC) 40 mg PO QAM Qty: 90 1RF ropinirole 0.25 mg tablet 0.25 mg PO BID 90 Days Qty: 180 1RF (DME) pen needle, diabetic [BD Ultra-Fine [place] Pen Needle] 32 gauge x 5/32" needle See Rx Instructions .Route Qty: 400 3RF Rx Instructions: use 4 x daily insulin aspart U-100 [Novolog Flexpen U-100 Insulin] 100 unit/mL (3 mL) insulin pen 15 - 25 unit SQ TID MDD 60 units Qty: 30 5RF Rx Instructions: per sliding scale Tresiba FlexTouch U-100 100 unit/mL (3 mL) insulin pen 30 unit subcut QAM Qty: 15 1RF ipratropium-albuterol 0.5 mg-3 mg(2.5 mg base)/3 mL solution for nebulization 3 ml INH QID PRN (Reason: wheezing) Qty: 90 0RF teriparatide 20 mcg/dose (620mcg/2.48mL) pen injector 20 mcg subcut PM Qty: 7.44 0RF benztropine 1 mg tablet 1 mg PO TID 30 Days Qty: 90 5RF Xifaxan 550 mg tablet 550 mg PO BID Qty: 60 5RF topiramate 100 mg tablet 100 mg PO BID Qty: 60 5RF oxcarbazepine 300 mg tablet See Rx Instructions .ROUTE .COMPLEX Qty: 90 5RF Rx Instructions: 300 mg PO take one tablet in the morning, then take two tablets (600mg) in the evening; levothyroxine [Euthyrox] 50 mcg tablet 50 mcg PO QAM Qty: 30 2RF levetiracetam 750 mg tablet 1,500 mg PO BID 30 Days Qty: 120 5RF cholecalciferol (vitamin D3) [Vitamin D3] 25 mcg (1,000 unit) capsule 5,000 unit PO QDL Label Comments: TAKES IN AFTERNOON promethazine 25 mg tablet 25 mg PO Q8H PRN (Reason: nausea and vomiting) Qty: 10 0RF ascorbate calcium (vitamin C) 500 mg tablet 500 mg PO QDL vitamin E (dl, acetate) 180 mg (400 unit) capsule 180 mg PO Q OTHER DAY (DME) OneTouch Verio test strips Strip See Rx Instructions .Route Qty: 50 5RF Rx Instructions: Test blood sugars once a day epinephrine [EpiPen 2-Garret] 0.3 mg/0.3 mL auto-injector 0.3 mg IM Q10M PRN (Reason: Anaphylaxis) lecithin 1,200 mg capsule 1,200 mg PO QDL cranberry 400 mg capsule 400 mg PO BIDM Rx Instructions: administer with a meal multivitamin [Multiple Vitamins] Tablet 1 tab PO QDL zinc 50 mg Tablet 50 mg PO QDL vitamin A 8,000 unit Capsule 8,000 unit PO QDL vitamin B complex Tablet 1 tab PO QDL Probiotic 3 billion cell Capsule 1 mmu cells PO QDL fexofenadine 60 mg Tablet 60 mg PO QAM hydrocortisone 10 mg tablet See Rx Instructions .ROUTE .COMPLEX Rx Instructions: take 10 mg in the morning and 5 mg every evening; calcium carbonate 500 mg calcium (1,250 mg) Tablet 500 mg PO QDL Blue-Emu Cream 1 applic topical HS lactulose 20 gram/30 mL solution 45 ml PO TID Qty: 2880 1RF Nurtec ODT 75 mg tablet,disintegrating 75 mg PO .COMPLEX PRN (Reason: Migraine Headache) Rx Instructions: 1 tab po prn for severe migraines pravastatin 20 mg tablet 20 mg PO QAM Label Comments: this is a new medication per patients escitalopram oxalate 20 mg tablet 20 mg PO QAM melatonin 5 mg tablet 10 mg PO HS Qty: 1 0RF Rx Instructions: [id number]-[id number]-[id number] magnesium oxide 400 mg (241.3 mg magnesium) tablet 400 mg PO BID Qty: 0 0RF acetaminophen [Tylenol Extra Strength] 500 mg Tablet 1,000 mg PO HS Qty: 0 0RF Refresh Optive Advanced 0.5-1-0.5 % drops 2 drops OP HS Qty: 0 0RF Rx Instructions: PER PT'S , "USUALLY USES AT HS". acetaminophen [Tylenol Extra Strength] 500 mg tablet 500 mg PO BID PRN (Reason: Pain) diclofenac sodium [Voltaren Arthritis Pain] 1 % gel 4 g EXT QID PRN (Reason: Pain) Referrals Referrals: Geri Mcgraw PA-C [Primary Care Provider] -
[2021-10-14 00:25] LABS: Hematocrit (blood only) 29.2 % (34.1-44.9); Hemoglobin 9.8 g/dl (12.0-16.0); Mean Corpuscular Hemoglobin 35.1 pg (25.0-34.0); Mean Corpuscular Hgb Conc 33.6 g/dL (32.0-36.0); Mean Corpuscular Volume 104.7 fL (80.0-100.0); Mean Platelet Volume 10.9 fL (9.4-12.3); Platelet Count 76 K/uL (130-400); RDW Coefficient of Variation 15.1 % (11.5-14.5); RDW Standard Deviation 57.6 fL (36.4-46.3); Red Blood Count 2.79 M/uL (3.93-5.22); White Blood Count 3.96 K/ul (4.8-10.8)
[2021-10-14] MEDS ORDERED: LACTULOSE 200GM/700ML WTR ENEMA PR ONE (00:38)
[2021-10-14 00:42] LABS: Alanine Aminotransferase 24 U/L (7-52); Albumin Globulin Ratio 1.3 (0.9-2); Albumin Level 2.5 gm/dl (3.4-5.0); Alkaline Phosphatase 132 U/L (34-104); Anion Gap 3 (3-11); Aspartate Aminotransferase 25 U/L (13-39); BUN Creatinine Ratio 22.4 (10-20); Blood Urea Nitrogen 11 mg/dl (6-23); Calcium 6.4 mg/dl (8.5-10.1); Carbon Dioxide 21 mmol/L (21-32); Chloride 118 mmol/L (98-107); Est GFR (African American) 127.1 ml/min; Est GFR (Non-African American) 109.7 ml/min; Glucose 151 mg/dl (70-99(Fasting)); Lipase 17 U/L (11-82); Sodium 142 mmol/L (136-145); Total Protein 4.5 gm/dl (6.0-8.3)
[2021-10-14 00:51] LABS: Basophils # (auto) 0.04 K/uL (0-0.2); Eosinophils # (auto) 0.12 K/uL (0-0.50); Immature Granulocytes # (auto) 0.01 K/uL (0.00-0.02); Immature Granulocytes % (auto) 0.3 %; Lymphocytes # (auto) 1.12 K/uL (1.2-3.4); Lymphocytes % (auto) 28.3 %; Monocytes # (auto) 0.42 K/uL (0.24-0.82); Monocytes % (auto) 10.6 %; Neutrophils # (auto) 2.25 K/uL (1.4-6.5); Neutrophils % (auto) 56.8 %; RBC Morphology Unremarkable
--- NOTE | 2021-10-14 01:42 | History & Physical Report ---
Date of Service October 14, 2021 Assessment & Plan (1) Constipation: Plan: Continue Lactulose Electrolyte repletion - K and Ca Colace PRN (2) Hyperammonemia: Plan: Elevated ammonia level. Patient is awake, alert and able to answer questions -Continue Lactulose -Continue Rifaximin (3) Adrenal insufficiency: Plan: Suspected diagnosis. -Continue home hydrocortisone -Endocrinology followup recommended for repeat testing (4) Diabetes mellitus: Plan: Chronic. A1c was 5.2% in 08/2021. -Continue Degludec. Will decreased to 20u daily -ISS -Continue Phenergan for diabetic gastroparesis (5) Nonalcoholic fatty liver disease: Plan: With cirrhosis. Appears to be compensated. Labs are near baseline. -Avoid hepatotoxic agents -Continue Lactulose (6) Depression: Plan: Chronic. -Continue Escitalopram (7) Dyslipidemia: Plan: Chronic -Continue Pravastatin (8) Parkinsonism: Plan: Chronic. Secondary to her seizure and other psychiatric medications. -Continue topiramte, ropinirole, ocarbazepine, Keppra and Benztropine Plan F/E/N - heplock. Electrolyte repletion K and Ca, CC diet as tolerated Ppx - low risk for dvt Code - Full Dispo - Admit to medical History of Present Illness Chief Complaint: constipation, confusion Primary Care Provider: MACO Nelson Arpit is a 55yo female with history of NAFLD with Cirrhosis and hepatic encephalopathy on daily Lactulose and Rifaximin, adrenal insufficiency on hydrocortisone, DM, Depression and Seizure. Patient is well known to the medical service - recently hospitalized from 09/22/21 - 09/24/21 for hepatic encephalopathy most likely secondary to medication non-adherence. She presents today with complaint of constipation. She has not had a bowel movement yet today and had only a small BM yesterday. She feels ill, "sick and confused". is at bedside and states that patient has been intermittently confused and more sleepy than usual. She denies fever but has had some chills. No additional complaints at this time. No sick contacts, recent travel. No changes in medications - patient reports compliance with medications. Allergies Allergy/AdvReac Type Severity Reaction Status Date / Time metoclopramide Allergy Severe SEIZURES Verified 10/13/21 23:08 metronidazole Allergy Severe SEIZURE Verified 10/13/21 23:08 tramadol Allergy Severe SEIZURES Verified 10/13/21 23:08 amoxicillin Allergy Intermediate SEE COMMENT Verified 10/13/21 23:08 baclofen Allergy Intermediate RASH Verified 10/13/21 23:08 butalbital Allergy Intermediate HIVES Verified 10/13/21 23:08 dicyclomine Allergy Intermediate HIVES Verified 10/13/21 23:08 nitrofurantoin Allergy Intermediate HIVES/RASH/SEVERE Verified 10/13/21 23:08 [From Macrobid] ITCHING pollen extracts Allergy Intermediate Hives Verified 10/13/21 23:08 Sulfa (Sulfonamide Allergy Intermediate CAUSES Verified 10/13/21 23:08 Antibiotics) BLACK STOOLS Tetracyclines Allergy Intermediate DOXYCYCLINE Verified 10/13/21 23:08 -HIVES adhesive Allergy Mild RASH, Verified 10/13/21 23:08 DUODERM=RED,ITCHY celecoxib Allergy Mild HIVES Verified 10/13/21 23:08 sulindac Allergy Mild ALLERGY Verified 10/13/21 23:08 LISTED "CLONDORAL"--HIVES Cephalosporins AdvReac Severe TURNS Verified 10/13/21 23:08 STOOL VERY DARK paroxetine [From Paxil] AdvReac Severe Vomiting Verified 10/13/21 23:08 dextromethorphan AdvReac Mild Vomiting Verified 10/13/21 23:08 Home Medications Medication Instructions Recorded Confirmed Type multivitamin (Multiple Vitamins) 1 tab PO QDL 12/26/17 10/13/21 History lactobacillus combination no.4 3 1 mmu cells PO QDL 09/20/18 10/13/21 History billion cell capsule (Probiotic) vitamin A 2,400 mcg capsule 8,000 unit PO QDL 09/20/18 10/13/21 History vitamin B complex 1 tab PO QDL 09/20/18 10/13/21 History zinc 50 mg tablet 50 mg PO QDL 02/09/19 10/13/21 History epinephrine 0.3 mg/0.3 mL 0.3 mg IM Q10M PRN Anaphylaxis 04/02/19 10/13/21 History injection, auto-injector (EpiPen 2-Garret) lecithin 1,200 mg capsule 1,200 mg PO QDL 04/29/19 10/13/21 History fexofenadine 60 mg tablet 60 mg PO QAM 04/12/20 10/13/21 History albuterol sulfate 90 mcg/actuation 2 puff inhalation Q4H PRN 05/31/20 10/13/21 Rx aerosol inhaler shortness of breath #1 inhaler cranberry 400 mg capsule 400 mg PO BIDM 06/08/20 10/13/21 History promethazine 25 mg tablet 25 mg PO Q8H PRN nausea and 10/11/20 10/13/21 Rx vomiting #10 tabs levetiracetam 750 mg tablet 1,500 mg PO BID 30 days #120 tabs 10/30/20 10/13/21 Rx omeprazole 40 mg capsule,delayed 40 mg PO QAM #90 caps 11/15/20 10/13/21 Rx release ascorbate calcium (vitamin C) 500 500 mg PO QDL 11/16/20 10/13/21 History mg tablet vitamin E (dl, acetate) 180 mg 180 mg PO Q OTHER DAY 11/16/20 10/13/21 History (400 unit) capsule cholecalciferol (vitamin D3) 25 5,000 unit PO QDL 11/30/20 10/13/21 History mcg (1,000 unit) capsule (Vitamin D3) hydrocortisone 10 mg tablet See Rx Instructions .Route .COMPLEX 11/30/20 10/13/21 History pravastatin 20 mg tablet 20 mg PO QAM 12/05/20 10/13/21 History escitalopram oxalate 20 mg tablet 20 mg PO QAM 12/29/20 10/13/21 History magnesium oxide 400 mg (241.3 mg 400 mg PO BID #0 tabs 01/02/21 10/13/21 Rx magnesium) tablet melatonin 5 mg tablet 10 mg PO HS #1 tab 01/02/21 10/13/21 Rx ropinirole 0.25 mg tablet 0.25 mg PO BID 90 days #180 tabs 01/10/21 10/13/21 Rx acetaminophen 500 mg tablet 1,000 mg PO HS #0 tabs 04/20/21 10/13/21 Rx (Tylenol Extra Strength) jaatijmhwvokgcqyjpqoax-jwubokrs-qcfwajqi 2 drops ophthalmic (eye) HS #0 mL 10/13/21 Rx 80 0.5 %-1 %-0.5 % eye drops (Refresh Optive Advanced) acetaminophen 500 mg tablet 500 mg PO BID PRN Pain 06/22/21 10/13/21 History (Tylenol Extra Strength) diclofenac sodium 1 % topical gel 4 g EXT QID PRN Pain 06/22/21 10/13/21 History (Voltaren Arthritis Pain) pen needle, diabetic 32 gauge x #400 ea 06/26/21 10/13/21 Rx 5/32" (BD Ultra-Fine [place] Pen Needle) insulin aspart U-100 100 unit/mL 15 - 25 unit (0.15 - 0.25 mL) 07/07/21 10/13/21 Rx (3 mL) subcutaneous pen (Novolog subcut TID #30 mL Flexpen U-100 Insulin aspart) insulin degludec 100 unit/mL (3 30 unit (0.3 mL) subcut QAM #15 mL 07/07/21 10/13/21 Rx mL) subcutaneous pen (Tresiba FlexTouch U-100 insulin) blood sugar diagnostic (OneTouch #50 ea 07/17/21 10/13/21 Rx Verio test strips) ipratropium 0.5 mg-albuterol 3 mg 3 ml inhalation QID PRN wheezing 07/19/21 10/13/21 Rx (2.5 mg base)/3 mL nebulization #90 mL soln benztropine 1 mg tablet 1 mg PO TID 30 days #90 tabs 07/20/21 10/13/21 Rx teriparatide 20 mcg/dose (620 20 mcg (0.08 mL) subcut PM #7.44 mL 07/20/21 10/13/21 Rx mcg/2.48 mL) subcutaneous pen injector Blue-Emu Cream 1 applic topical HS 07/22/21 10/13/21 History calcium carbonate 500 mg calcium 500 mg PO QDL 07/22/21 10/13/21 History (1,250 mg) tablet rifaximin 550 mg tablet (Xifaxan) 550 mg PO BID hepatic 07/26/21 10/13/21 Rx 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 #60 tabs lactulose 20 gram/30 mL oral 45 ml PO TID #2,880 mL 08/02/21 10/13/21 Rx solution oxcarbazepine 300 mg tablet See Rx Instructions .Route 08/14/21 10/13/21 Rx .COMPLEX #90 tabs topiramate 100 mg tablet 100 mg PO BID #60 tabs 08/14/21 10/13/21 Rx levothyroxine 50 mcg tablet 50 mcg PO QAM #30 tabs 09/12/21 10/13/21 Rx (Euthyrox) rimegepant 75 mg disintegrating 75 mg PO .COMPLEX PRN Migraine 09/22/21 10/13/21 History tablet (Nurtec ODT) Headache Past Med/Surg History Medical History (Updated 10/14/21 @ 02:10 by Aamlia Beatty DO) Acute alteration in mental status Acute alteration in mental status Acute confusion Acute dehydration Acute hepatic encephalopathy Acute hepatic encephalopathy Acute hepatic encephalopathy Altered mental status Depression Diabetes mellitus Electrolyte abnormality Hyperammonemia Hyperbilirubinemia Nonalcoholic fatty liver disease Parkinsonism Sleepiness Spleen enlargement Thrombocytopenia Urinary tract infection UTI (urinary tract infection) Surgical History Femur fracture, right SPIRAL FRACTURE REPAIRED (HARDWARE REPAIRED) History of ankle surgery RT/LEFT History of appendectomy History of cholecystectomy History of colonoscopy History of esophagogastroduodenoscopy (EGD) History of kyphoplasty History of open reduction and internal fixation (ORIF) procedure RT HIP History of surgery (~06/02/20) screw/plate removal from left humerus History of surgery on arm LEFT (HARDWARE INTACT) History of tooth extraction History of vascular access device right A port Hx of carpal tunnel repair RT/LEFT Hx of cataract extraction RT/LEFT S/P laminectomy lumbar spine S/P nasal surgery nasal bone fracture repair S/P TIFFANIE-BSO (1997) Family History Other Adopted No pertinent family history Social History Smoking Status: Never smoker Tobacco Type: Cigarettes Second Hand Exposure: No; Hx Alcohol Use: No Hx Substance Use: No Preferred Language: Niuean Communication Ability: Effective Visual Impairment: No Limitations Blocker Polishing Required: No Beliefs That Will Affect Care: None marital status: Current Living Situation: Spouse Current Living Situation Comment: Lives with current occupational status: unemployed and disabled How many Children do You have: 0 Feels Safe at Home: Yes Seatbelt Use: always Assistive Devices: Bedside Commode, Cane, Walker and Wheelchair Review of Systems Review of Systems: All systems reviewed & are unremarkable except as noted in HPI & below Physical Exam Physical Exam: General: patient resting comfortably, NAD, non-toxic in appearance, AA&O x 4 Skin: warm, dry, intact, no rashes or lesions HEENT: NC/AT, PERRL, EOMI, anicteric sclera, conjunctiva without injection, external ear normal to inspection and nontender, nares patent, dry mucus membranes, dentition intact, no oropharyngeal lesions, neck supple, trachea midline, no LAD, no thyromegaly, no JVD Heart: +S1/S2, regular, no m/r/g, right chest port Lungs: equal air entry bilaterally, no rales/rhonchi/wheezes Abd: +BS, soft, NT/ND, no masses/organomegaly/ascites Ext: warm, 2+ pulses in UE/LE bilaterally, no clubbing/cyanosis or edema Neuro: nonfocal, patient AA&O x 4, speech intact, no facial droop, moving all extremities on command with equal strength 5/5, tremor of head noted Results & Data Results & Data ([facility]) Vital Signs (Past 12 Hours) Vital Signs Temp Pulse Pulse Resp BP BP Pulse Ox 10/14/21 00:10 63 20 128/69 99 10/13/21 21:41 37.3 C 64 18 134/75 97 O2 Del Method 10/14/21 00:10 Room Air 10/13/21 21:41 Room Air Laboratory Results Laboratory Results WBC 3.96 K/ul (4.8-10.8) L 10/13/21 23:59 RBC 2.79 M/uL (3.93-5.22) L 10/13/21 23:59 Hgb 9.8 g/dl (12.0-16.0) L 10/13/21 23:59 Hct 29.2 % (34.1-44.9) L 10/13/21 23:59 MCV 104.7 fL (80.0-100.0) H 10/13/21 23:59 MCH 35.1 pg (25.0-34.0) H 10/13/21 23:59 MCHC 33.6 g/dL (32.0-36.0) 10/13/21 23:59 RDW Std Deviation 57.6 fL (36.4-46.3) H 10/13/21 23:59 RDW Coeff of Irina 15.1 % (11.5-14.5) H 10/13/21 23:59 Plt Count 76 K/uL (130-400) L 10/13/21 23:59 MPV 10.9 fL (9.4-12.3) 10/13/21 23:59 Immature Gran % (Auto) 0.3 % 10/13/21 23:59 Neut % (Auto) 56.8 % 10/13/21 23:59 Lymph % (Auto) 28.3 % 10/13/21 23:59 [place] % (Auto) 10.6 % 10/13/21 23:59 Eos % (Auto) 3.0 % 10/13/21 23:59 Baso % (Auto) 1.0 % 10/13/21 23:59 Neut # (Auto) 2.25 K/uL (1.4-6.5) 10/13/21 23:59 Lymph # (Auto) 1.12 K/uL (1.2-3.4) L 10/13/21 23:59 [place] # (Auto) 0.42 K/uL (0.24-0.82) 10/13/21 23:59 Eos # (Auto) 0.12 K/uL (0-0.50) 10/13/21 23:59 Baso # (Auto) 0.04 K/uL (0-0.2) 10/13/21 23:59 Immature Gran # (Auto) 0.01 K/uL (0.00-0.02) 10/13/21 23:59 RBC Morphology Unremarkable 10/13/21 23:59 Sodium 142 mmol/L (136-145) 10/14/21 Unknown Potassium 3.0 mmol/L (3.5-5.1) L 10/14/21 Unknown Chloride 118 mmol/L (98-107) H 10/14/21 Unknown Carbon Dioxide 21 mmol/L (21-32) 10/14/21 Unknown Anion Gap 3 (3-11) 10/14/21 Unknown BUN 11 mg/dl (6-23) 10/14/21 Unknown Creatinine 0.49 mg/dl (0.6-1.2) L 10/14/21 Unknown Est Cr Clr Drug Dosing Not Reportable 10/14/21 Unknown Est GFR ( Amer) 127.1 ml/min 10/14/21 Unknown Est GFR (Non-Af Amer) 109.7 ml/min 10/14/21 Unknown BUN/Creatinine Ratio 22.4 (10-20) H 10/14/21 Unknown Glucose 151 mg/dl (70-99(Fasting)) H 10/14/21 Unknown Calcium 6.4 mg/dl (8.5-10.1) L 10/14/21 Unknown Total Bilirubin 1.0 mg/dl (0.2-1.0) 10/14/21 Unknown AST 25 U/L (13-39) 10/14/21 Unknown ALT 24 U/L (7-52) 10/14/21 Unknown Alkaline Phosphatase 132 U/L (34-104) H 10/14/21 Unknown Ammonia 173.0 umol/L (18-72) H 10/14/21 Unknown Total Protein 4.5 gm/dl (6.0-8.3) L 10/14/21 Unknown Albumin 2.5 gm/dl (3.4-5.0) L 10/14/21 Unknown Globulin 2.0 gm/dl (2.5-4.0) L 10/14/21 Unknown Albumin/Globulin Ratio 1.3 (0.9-2) 10/14/21 Unknown Lipase 17 U/L (11-82) 10/14/21 Unknown SARS-CoV-2, RNA, NAAT NEGATIVE (NEGATIVE) 10/14/21 Unknown PG Care Time/CCT Total # of Minutes Spent Total Time Spent with Patient: Total time spent is greater than 50% in coordination of care (as documented) at patient's floor/unit and/or counseling patient: Coding Level of Care Code 56050 Initial Inpt Care Lvl 3 Diagnoses Constipation K59.00 Hyperammonemia E72.20 Adrenal insufficiency E27.40 Diabetes mellitus E11.9 Nonalcoholic fatty liver disease K76.0 Depression F32.9 Dyslipidemia E78.5 Parkinsonism G20
[2021-10-14] MEDS ORDERED: POTASSIUM CHLORIDE PWD 20 MEQ PACK PO ONE (01:44)
[2021-10-14] MEDS ORDERED: DOCUSATE SODIUM 100 MG CAP PO PRN (05:29)
[2021-10-14] MEDS ORDERED: POTASSIUM CHLORIDE CRTAB 20 MEQ TABCR PO STA (05:29)
[2021-10-14] MEDS ORDERED: CARBOHYDRATES FOR HYPOGLYCEMIA PO PRN (05:29)
[2021-10-14] MEDS ORDERED: GLUCOSE 10 TAB/TUBE PO PRN (05:29)
[2021-10-14] MEDS ORDERED: GLUCOSE 40% GEL 15 GM TUBE PO PRN (05:29)
[2021-10-14] MEDS ORDERED: GLUCAGON FOR INJ 1 MG VIAL SQ PRN (05:29)
[2021-10-14] MEDS ORDERED: DEXTROSE 50% 50 ML SYRINGE IV PRN (05:29)
[2021-10-14] MEDS ORDERED: ALBUTEROL HFA 8 GM INHALER INH PRN (05:29)
[2021-10-14 05:40] LABS: Appearance Urine Clear (Clear); Bacteria Urine Automated 4+ (Negative); Bilirubin Urine Negative (Negative); Blood Urine Negative (Negative); Cast Urine Automated 0 /lpf (0-5); Color Urine Yellow; Glucose Urine UA Negative (Negative); Ketones Urine Negative (Negative); Leukocyte Esterase Urine 1+ (Negative); Nitrite Urine Negative (Negative); Protein Urine Negative (Negative); RBC Urine Automated 0-4 /hpf (0-4); Specific Gravity Urine 1.008 (1.000-1.030); Urobilinogen Urine Negative (Negative)
[2021-10-14] MEDS: LEVOTHYROXINE SODIUM 50 MCG TABLET PO SCH (06:22)
[2021-10-14] MEDS ORDERED: POTASSIUM CHLORIDE 10 MEQ / 100ML WTR IV STA (07:19)
[2021-10-14] MEDS: POTASSIUM CHLORIDE / WTR 10 MEQ/100 ML PLCT IV SCH ×3 (07:52→10:03)
[2021-10-14] MEDS: HYDROCORTISONE SOD 50 MG in SYRINGE 0 ML IV SCH ×3 (07:53→22:41)
[2021-10-14] MEDS: MAGNESIUM SULFATE / D5W 1 GM/100 ML BAG IV SCH ×2 (07:53→09:42)
[2021-10-14] MEDS: BENZTROPINE MESYLATE 1 MG TAB PO SCH ×3 (07:54→21:26)
[2021-10-14] MEDS: levETIRAcetam 500 MG TAB PO SCH ×2 (07:55→21:29)
[2021-10-14] MEDS: OXcarbazepine 150 MG TABLET PO SCH ×2 (07:55→21:28)
[2021-10-14] MEDS: TOPIRAMATE 100 MG TAB PO SCH ×2 (07:56→21:27)
[2021-10-14] MEDS: rifAXIMin 550 MG TABLET PO SCH ×2 (07:56→21:25)
[2021-10-14] MEDS: FEXOFENADINE 60 MG TAB PO SCH (07:56)
[2021-10-14] MEDS: rOPINIRole HCL 0.25 MG TABLET PO SCH ×2 (07:56→21:29)
[2021-10-14] MEDS: FAMOTIDINE 10 MG TABLET PO SCH (07:57)
[2021-10-14] MEDS: ESCITALOPRAM OXALATE 20 MG TAB PO SCH (07:57)
[2021-10-14] MEDS: MAGNESIUM OXIDE 400 MG TAB PO SCH ×2 (07:57→21:28)
[2021-10-14] MEDS: POTASSIUM CHLORIDE CRTAB 20 MEQ TABCR PO SCH ×2 (07:58→21:24)
[2021-10-14] MEDS: LACTULOSE SYRUP 30 GM/45 ML UDP PO SCH ×3 (07:58→21:22)
[2021-10-14] MEDS: INSULIN ASPART PER UNIT SC SCH ×4 (08:59→21:31)
[2021-10-14] MEDS: LANTUS PER UNIT CHARGE SQ SCH (08:59)
[2021-10-14] MEDS ORDERED: NON-FORMULARY MEDICATION (Insulin Degludec [Tresiba Flextouch U-100] 100 unit/mL (3 mL) in SQ SCH (09:00)
[2021-10-14] MEDS ORDERED: PRAVASTATIN SOD 20 MG TAB PO SCH (09:00)
[2021-10-14] MEDS ORDERED: HYDROCORTISONE 10 MG TAB PO SCH ×2 (09:00→17:00)
--- NOTE | 2021-10-14 09:38 | XRay Report ---
KUB CLINICAL HISTORY: Constipation. FINDINGS: 3 AP supine abdominal radiographs are compared to study dated 09/22/2021. Enteric tube has b een removed from previous. There is a nonobstructed abdominal bowel gas pattern. There is rectosigmoi d fecal impaction. Mild to moderate fecal retention is seen throughout the remainder of the colon. Ch olecystectomy clips are noted in the right upper quadrant. No evidence of intraperitoneal free air is seen on these supine images. There are no abnormal abdominal calcifications. The lung bases are miranda r as imaged. The skeletal structures are osteopenic. There are healed left-sided rib fractures as wel l as chronic posttraumatic deformity of the right proximal femur. IMPRESSION: Rectosigmoid fecal impaction and mild to moderate constipation. Electronically signed by: Aiden Randolph M.D. 10/14/2021 9:37 AM
--- NOTE | 2021-10-14 17:42 | Hospitalist Progress Note ---
Date of Service October 14, 2021 Assessment & Plan (1) Constipation: Plan: did have large bowel movement, did have hepatic encephalopathy on presentation with ammonia 173, Continue Lactulose Electrolyte repletion - K and Ca Colace PRN (2) Hyperammonemia: Plan: Elevated ammonia level. Patient is awake, alert and able to answer questions, she feels her confusion is clearing -Continue Lactulose -Continue Rifaximin (3) Adrenal insufficiency: Plan: Suspected diagnosis. -stress dose steroids for one day then continue home hydrocortisone -Endocrinology followup recommended for repeat testing (4) Diabetes mellitus: Plan: Chronic. A1c was 5.2% in 08/2021. -Continue Degludec. Will decreased to 20u daily -ISS -Continue Phenergan for diabetic gastroparesis (5) Nonalcoholic fatty liver disease: Plan: With cirrhosis. Appears to be compensated. Labs are near baseline. -Avoid hepatotoxic agents -Continue Lactulose (6) Depression: Plan: Chronic. -Continue Escitalopram (7) Dyslipidemia: Plan: Chronic -Continue Pravastatin (8) Parkinsonism: Plan: Chronic. Secondary to her seizure and other psychiatric medications. -Continue topiramte, ropinirole, ocarbazepine, Keppra and Benztropine Plan Code - Full Admission and Anticipated Discharge Date Admission Date: October 14, 2021 Subjective this pt states she came in with confusion now cleared was constipated and did have large bowel movement Review of Systems Review of Systems: Mild distress and fatigue no headache, no visual changes no speech or swallowing issues no chest pain, pressure or palpitations no shortness of breath, cough or wheezes no abdominal pain, nausea or vomiting, diarrhea or constipation no dysuria, hematuria or frequency no focal joint pain or swelling no back pain, CVA tenderness or radicular pain no bruising, bleeding or rashes no focal signs of weakness or numbness or does have some baseline tremor baseline anxiety or depression.. Physical Exam Physical Exam: The patient appeared well nourished and in her normal state Vital signs as documented. Head exam is normocephalic atraumatic Neck is without JVD, thyromegaly, or carotid bruits. Lungs are clear to auscultation, no focal loss of breath sounds Cardiac exam, Rhythm is regular.. No murmurs, rubs or gallops. Abdominal exam reveals normal bowel sounds, soft non tender, no masses Extremities are nonedematous and both pedal pulses are present Neurologic exam is alert and oriented, she has tremor and some baseline slowing Skin is without bruises or rashes Psychologically is without concerns for beginning of some memory loss Results & Data Results & Data ([facility]) Vital Signs (Past 12 Hours) Vital Signs Temp Pulse Resp BP Pulse Ox O2 Del Method 10/14/21 15:22 98.2 F 82 16 150/78 H 99 Room Air 10/14/21 08:15 97.5 F L 60 18 149/83 H 99 Room Air 10/14/21 05:55 98.4 F 69 20 160/73 H 99 Room Air PG Care Time/CCT Total # of Minutes Spent Total Time Spent with Patient: Total time spent is greater than 50% in coordination of care (as documented) at patient's floor/unit and/or counseling patient: Coding Level of Care Code 84473 Subseq Hosp Care Lvl 3 Diagnoses Constipation K59.00 Hyperammonemia E72.20 Adrenal insufficiency E27.40 Diabetes mellitus E11.9 Nonalcoholic fatty liver disease K76.0 Depression F32.9 Dyslipidemia E78.5 Parkinsonism G20
[2021-10-14] MEDS: MELATONIN 3 MG TAB PO SCH (21:25)
[2021-10-14] MEDS: ACETAMINOPHEN 500 MG TAB PO SCH (21:26)
[2021-10-14] MEDS: HEPARIN 100 UNIT/ML 5ML FLUSH FLUSH PRN (22:41)
[2021-10-15] MEDS: LEVOTHYROXINE SODIUM 50 MCG TABLET PO SCH (05:33)
[2021-10-15] MEDS ORDERED: COUGH DROP (SUGAR FREE) LOZ 24 LOZ/1 BOX BUCCAL ONE (06:00)
[2021-10-15] MEDS: FEXOFENADINE 60 MG TAB PO SCH (08:12)
[2021-10-15] MEDS: HYDROCORTISONE 10 MG TAB PO SCH ×2 (08:12→18:21)
[2021-10-15] MEDS: ESCITALOPRAM OXALATE 20 MG TAB PO SCH (08:12)
[2021-10-15] MEDS: OXcarbazepine 150 MG TABLET PO SCH ×2 (08:13→21:51)
[2021-10-15] MEDS: levETIRAcetam 500 MG TAB PO SCH ×2 (08:14→21:45)
[2021-10-15] MEDS: MAGNESIUM OXIDE 400 MG TAB PO SCH ×2 (08:14→21:51)
[2021-10-15] MEDS: BENZTROPINE MESYLATE 1 MG TAB PO SCH ×3 (08:14→21:47)
[2021-10-15] MEDS: TOPIRAMATE 100 MG TAB PO SCH ×2 (08:14→21:47)
[2021-10-15] MEDS: rifAXIMin 550 MG TABLET PO SCH ×2 (08:14→21:46)
[2021-10-15] MEDS: LACTULOSE SYRUP 30 GM/45 ML UDP PO SCH ×3 (08:15→21:52)
[2021-10-15] MEDS: POTASSIUM CHLORIDE CRTAB 20 MEQ TABCR PO SCH (08:15)
[2021-10-15] MEDS: rOPINIRole HCL 0.25 MG TABLET PO SCH ×2 (08:15→21:46)
[2021-10-15 09:21] LABS: Basophils # (auto) 0.02 K/uL (0-0.2); Basophils % (auto) 0.4 %; Eosinophils # (auto) 0.07 K/uL (0-0.50); Eosinophils % (auto) 1.3 %; Hematocrit (blood only) 28.7 % (34.1-44.9); Hemoglobin 10.1 g/dl (12.0-16.0); Immature Granulocytes # (auto) 0.01 K/uL (0.00-0.02); Immature Granulocytes % (auto) 0.2 %; Lymphocytes # (auto) 1.08 K/uL (1.2-3.4); Lymphocytes % (auto) 20.5 %; Mean Corpuscular Hemoglobin 35.7 pg (25.0-34.0); Mean Corpuscular Hgb Conc 35.2 g/dL (32.0-36.0); Mean Corpuscular Volume 101.4 fL (80.0-100.0); Mean Platelet Volume 10.7 fL (9.4-12.3); Monocytes # (auto) 0.42 K/uL (0.24-0.82); Neutrophils # (auto) 3.68 K/uL (1.4-6.5); Neutrophils % (auto) 69.6 %; Platelet Count 81 K/uL (130-400); RDW Coefficient of Variation 14.3 % (11.5-14.5); RDW Standard Deviation 52.9 fL (36.4-46.3); Red Blood Count 2.83 M/uL (3.93-5.22); White Blood Count 5.28 K/ul (4.8-10.8)
[2021-10-15] MEDS: INSULIN ASPART PER UNIT SC SCH ×4 (09:31→21:43)
[2021-10-15] MEDS: LANTUS PER UNIT CHARGE SQ SCH (09:32)
[2021-10-15] MEDS: FAMOTIDINE 10 MG TABLET PO SCH (09:32)
[2021-10-15 09:56] LABS: Albumin Level 2.8 gm/dl (3.4-5.0); BUN Creatinine Ratio 16.9 (10-20); Bilirubin Direct 0.3 mg/dl (0-0.2); Bilirubin,Total 1.3 mg/dl (0.2-1.0); Calcium 7.4 mg/dl (8.5-10.1); Creatinine Clr Calc Pharmacy 116.4 ml/min; Est GFR (African American) 119.6 ml/min; Est GFR (Non-African American) 103.2 ml/min; Potassium 3.9 mmol/L (3.5-5.1); Total Protein 5.1 gm/dl (6.0-8.3)
--- NOTE | 2021-10-15 17:12 | Hospitalist Progress Note ---
Date of Service October 15, 2021 Assessment & Plan (1) Constipation: Plan: did have large bowel movement x 2 did have hepatic encephalopathy on presentation with ammonia 173, now 113 Continue Lactulose Electrolyte repletion Colace PRN (2) Hyperammonemia: Plan: Elevated ammonia level. Patient is awake, alert and able to answer questions, she feels her confusion is clearing -Continue Lactulose -Continue Rifaximin (3) Adrenal insufficiency: Plan: Suspected diagnosis. -stress dose steroids for one day then continue home hydrocortisone -Endocrinology followup recommended for repeat testing (4) Diabetes mellitus: Plan: Chronic. A1c was 5.2% in 08/2021. -Continue Degludec. Will decreased to 20u daily -ISS -Continue Phenergan for diabetic gastroparesis (5) Nonalcoholic fatty liver disease: Plan: With cirrhosis. Appears to be compensated. Labs are near baseline. -Avoid hepatotoxic agents -Continue Lactulose (6) Depression: Plan: Chronic. -Continue Escitalopram (7) Dyslipidemia: Plan: Chronic -Continue Pravastatin (8) Parkinsonism: Plan: Chronic. Secondary to her seizure and other psychiatric medications. -Continue topiramte, ropinirole, ocarbazepine, Keppra and Benztropine Plan PT evaluation pt wants to go home Code - Full Admission and Anticipated Discharge Date Admission Date: October 14, 2021 Subjective this pt is improved having bowel movements clearing hepatic encephalopathy Review of Systems Review of Systems: Mild distress and fatigue no headache, no visual changes no speech or swallowing issues no chest pain, pressure or palpitations no shortness of breath, cough or wheezes no abdominal pain, nausea or vomiting, diarrhea or constipation no dysuria, hematuria or frequency no focal joint pain or swelling no back pain, CVA tenderness or radicular pain no bruising, bleeding or rashes no focal signs of weakness or numbness or does have some baseline tremor baseline anxiety or depression.. Physical Exam Physical Exam: The patient appeared well nourished and in her normal state Vital signs as documented. Head exam is normocephalic atraumatic Neck is without JVD, thyromegaly, or carotid bruits. Lungs are clear to auscultation, no focal loss of breath sounds Cardiac exam, Rhythm is regular.. No murmurs, rubs or gallops. Abdominal exam reveals normal bowel sounds, soft non tender, no masses Extremities are nonedematous and both pedal pulses are present Neurologic exam is alert and oriented, she has tremor and some baseline slowing Skin is without bruises or rashes Psychologically is without concerns for beginning of some memory loss Results & Data Results & Data ([facility]) Vital Signs (Past 12 Hours) Vital Signs Temp Pulse Resp BP Pulse Ox O2 Del Method 10/15/21 15:53 97.9 F 70 22 138/69 99 Room Air 10/15/21 08:01 Room Air 10/15/21 07:27 98.4 F 61 19 136/81 97 Room Air PG Care Time/CCT Total # of Minutes Spent Total Time Spent with Patient: Total time spent is greater than 50% in coordination of care (as documented) at patient's floor/unit and/or counseling patient: Coding Level of Care Code 67455 Subseq Hosp Care Lvl 2 Diagnoses Constipation K59.00 Hyperammonemia E72.20 Adrenal insufficiency E27.40 Diabetes mellitus E11.9 Nonalcoholic fatty liver disease K76.0 Depression F32.9 Dyslipidemia E78.5 Parkinsonism G20
[2021-10-15] MEDS: ACETAMINOPHEN 500 MG TAB PO SCH (21:45)
[2021-10-15] MEDS: MELATONIN 3 MG TAB PO SCH (21:47)
[2021-10-16] MEDS ORDERED: HYDROmorphone INJ 0.5 MG/0.5 ML SYR IV STA (04:20)
[2021-10-16] MEDS: LEVOTHYROXINE SODIUM 50 MCG TABLET PO SCH (04:39)
[2021-10-16] MEDS: HEPARIN 100 UNIT/ML 5ML FLUSH FLUSH PRN (04:39)
[2021-10-16] MEDS: HYDROCORTISONE 10 MG TAB PO SCH ×2 (08:24→18:05)
[2021-10-16] MEDS: levETIRAcetam 500 MG TAB PO SCH ×2 (08:24→20:25)
[2021-10-16] MEDS: rifAXIMin 550 MG TABLET PO SCH ×2 (08:24→20:26)
[2021-10-16] MEDS: ESCITALOPRAM OXALATE 20 MG TAB PO SCH (08:24)
[2021-10-16] MEDS: TOPIRAMATE 100 MG TAB PO SCH ×2 (08:24→20:23)
[2021-10-16] MEDS: FAMOTIDINE 10 MG TABLET PO SCH (08:24)
[2021-10-16] MEDS: FEXOFENADINE 60 MG TAB PO SCH (08:24)
[2021-10-16] MEDS: rOPINIRole HCL 0.25 MG TABLET PO SCH ×2 (08:24→20:26)
[2021-10-16] MEDS: BENZTROPINE MESYLATE 1 MG TAB PO SCH ×3 (08:25→20:26)
[2021-10-16] MEDS: MAGNESIUM OXIDE 400 MG TAB PO SCH ×2 (08:25→20:24)
[2021-10-16] MEDS: OXcarbazepine 150 MG TABLET PO SCH ×2 (08:25→20:24)
[2021-10-16] MEDS: LACTULOSE SYRUP 30 GM/45 ML UDP PO SCH ×2 (08:31→13:17)
[2021-10-16] MEDS: INSULIN ASPART PER UNIT SC SCH ×4 (09:31→20:31)
[2021-10-16] MEDS: LANTUS PER UNIT CHARGE SQ SCH (09:32)
[2021-10-16] MEDS: LACTULOSE SYRUP 10 GM/15 ML BTL 960 ML PO SCH ×2 (13:46→21:36)
--- NOTE | 2021-10-16 16:54 | Hospitalist Progress Note ---
Date of Service October 16, 2021 Assessment & Plan (1) Constipation: Plan: did have large bowel movement x 2 did have hepatic encephalopathy on presentation with ammonia 173, now 113 Continue Lactulose Electrolyte repletion Colace PRN (2) Hyperammonemia: Plan: Elevated ammonia level. Hepatic encephalopathy patient is awake, alert but feels her confusion is not clearing found to have Klebsiella UTI such as may be metabolic encephalopathy -Continue Lactulose -Continue Rifaximin We will treat her Klebsiella UTI POA with meropenem IV considering this symptomatic with her persistent confusion despite improvement in her ammonia level (3) Adrenal insufficiency: Plan: Suspected diagnosis. -stress dose steroids for one day then continue home hydrocortisone -Endocrinology followup recommended for repeat testing (4) Diabetes mellitus: Plan: Chronic. A1c was 5.2% in 08/2021. -Continue Degludec. Will decreased to 20u daily -ISS -Continue Phenergan for diabetic gastroparesis (5) Nonalcoholic fatty liver disease: Plan: With cirrhosis. Appears to be compensated. Labs are near baseline. -Avoid hepatotoxic agents -Continue Lactulose (6) Depression: Plan: Chronic. -Continue Escitalopram (7) Dyslipidemia: Plan: Chronic -Continue Pravastatin (8) Parkinsonism: Plan: Chronic. Secondary to her seizure and other psychiatric medications. -Continue topiramte, ropinirole, ocarbazepine, Keppra and Benztropine Plan PT evaluation pt wants to go home Code - Full Admission and Anticipated Discharge Date Admission Date: October 14, 2021 Subjective Patient complains of still feeling confused. Ammonia has come down daily is still higher than her typical baseline She interestingly has shown a drug-resistant Klebsiella UTI which may be responsible for her confusion being metabolic encephalopathy Review of Systems Review of Systems: Mild distress and fatigue no headache, no visual changes no speech or swallowing issues no chest pain, pressure or palpitations no shortness of breath, cough or wheezes no abdominal pain, nausea or vomiting, diarrhea or constipation no dysuria, hematuria or frequency no focal joint pain or swelling no back pain, CVA tenderness or radicular pain no bruising, bleeding or rashes no focal signs of weakness or numbness or does have some baseline tremor baseline anxiety or depression.. Physical Exam Physical Exam: The patient appeared well nourished and in her normal state Vital signs as documented. Head exam is normocephalic atraumatic Neck is without JVD, thyromegaly, or carotid bruits. Lungs are clear to auscultation, no focal loss of breath sounds Cardiac exam, Rhythm is regular.. No murmurs, rubs or gallops. Abdominal exam reveals normal bowel sounds, soft non tender, no masses Extremities are nonedematous and both pedal pulses are present Neurologic exam is alert and oriented, she has tremor and some baseline slowing Skin is without bruises or rashes Psychologically is without concerns for beginning of some memory loss Results & Data Results & Data ([facility]) Vital Signs (Past 12 Hours) Vital Signs Temp Pulse Resp BP Pulse Ox O2 Del Method 10/16/21 15:17 98.1 F 70 16 123/75 97 Room Air 10/16/21 07:32 98.1 F 62 16 110/61 98 Room Air PG Care Time/CCT Total # of Minutes Spent Total Time Spent with Patient: Total time spent is greater than 50% in coordination of care (as documented) at patient's floor/unit and/or counseling patient: Coding Level of Care Code 45433 Subseq Hosp Care Lvl 3 Diagnoses Constipation K59.00 Hyperammonemia E72.20 Adrenal insufficiency E27.40 Diabetes mellitus E11.9 Nonalcoholic fatty liver disease K76.0 Depression F32.9 Dyslipidemia E78.5 Parkinsonism G20
[2021-10-16] MEDS: MEROPENEM 500 MG in SYRINGE 0 ML IV SCH (18:07)
[2021-10-16] MEDS: MELATONIN 3 MG TAB PO SCH (20:24)
[2021-10-16] MEDS: ACETAMINOPHEN 500 MG TAB PO SCH (20:25)
[2021-10-17] MEDS: MEROPENEM 500 MG in SYRINGE 0 ML IV SCH (01:50)
[2021-10-17] MEDS: HEPARIN 100 UNIT/ML 5ML FLUSH FLUSH PRN ×3 (01:51→18:01)
[2021-10-17] MEDS: LEVOTHYROXINE SODIUM 50 MCG TABLET PO SCH (06:02)
[2021-10-17] MEDS: LACTULOSE SYRUP 10 GM/15 ML BTL 960 ML PO SCH ×4 (07:27→21:18)
[2021-10-17] MEDS: INSULIN ASPART PER UNIT SC SCH ×4 (09:04→21:17)
[2021-10-17] MEDS: LANTUS PER UNIT CHARGE SQ SCH (09:04)
[2021-10-17] MEDS: rifAXIMin 550 MG TABLET PO SCH ×2 (09:05→21:18)
[2021-10-17] MEDS: OXcarbazepine 150 MG TABLET PO SCH ×2 (09:05→21:19)
[2021-10-17] MEDS: rOPINIRole HCL 0.25 MG TABLET PO SCH ×2 (09:05→21:19)
[2021-10-17] MEDS: TOPIRAMATE 100 MG TAB PO SCH ×2 (09:05→21:19)
[2021-10-17] MEDS: MAGNESIUM OXIDE 400 MG TAB PO SCH ×2 (09:06→21:18)
[2021-10-17] MEDS: FEXOFENADINE 60 MG TAB PO SCH (09:06)
[2021-10-17] MEDS: HYDROCORTISONE 10 MG TAB PO SCH ×2 (09:06→18:00)
[2021-10-17] MEDS: FAMOTIDINE 10 MG TABLET PO SCH (09:06)
[2021-10-17] MEDS: ESCITALOPRAM OXALATE 20 MG TAB PO SCH (09:06)
[2021-10-17] MEDS: BENZTROPINE MESYLATE 1 MG TAB PO SCH ×3 (09:06→21:18)
[2021-10-17] MEDS: levETIRAcetam 500 MG TAB PO SCH ×2 (10:21→21:19)
[2021-10-17 10:23] LABS: Calcium 7.4 mg/dl (8.5-10.1); Creatinine Clr Calc Pharmacy 105.7 ml/min; Est GFR (African American) 115.8 ml/min; Est GFR (Non-African American) 99.9 ml/min; Magnesium 1.6 mg/dl (1.7-2.4); Potassium 3.9 mmol/L (3.5-5.1)
[2021-10-17] MEDS: ERTAPENEM SODIUM 1,000 MG in SYRINGE 0 ML IV SCH (11:31)
[2021-10-17] MEDS: MAGNESIUM SULFATE / D5W 1 GM/100 ML BAG IV SCH ×2 (13:40→15:36)
--- NOTE | 2021-10-17 20:51 | Hospitalist Progress Note ---
Date of Service October 17, 2021 Assessment & Plan (1) Urinary tract infection due to ESBL Klebsiella: Plan: day #2 of abx therapy change meropenem to ertapenem 1gm IV daily plan 7 days of Rx can likely give this via [facility] as outpatient at [facility] discussed this with discussed this with social work (2) Acute hepatic encephalopathy: Plan: resolved ammonia level 77 today cont rifaximin + lactulose shoot for 2-3 BMs/day (3) Constipation: Plan: improving with titrating lactulose (4) Hyperammonemia: Plan: peak ammonia level just over 170 now 77 today improved s/p lactulose and rifaximin klebsiella UTI likely contributed to the acute decompensation (5) Adrenal insufficiency: Plan: Suspected diagnosis. s/p stress dose steroids this admission now back to baseline doses of hydrocortisone - 10mg qam, 5mg qafternoon - but AM dose should be 15mg Endocrinology followup recommended (Dr Ben Craig) - saw them in fall 2020 for this issue thought to be ACTH deficiency (6) Diabetes mellitus: Plan: Chronic. A1c was 5.2% in 08/2021. Controlled at this time. Cont lantus 20 units daily Novolog SSI (7) Nonalcoholic fatty liver disease: Plan: With cirrhosis. Compensated. Continue Lactulose + rifaximin. (8) Depression: Plan: continue Escitalopram (9) Dyslipidemia: Plan: continue Pravastatin (10) Parkinsonism: Plan: Chronic. Secondary to her seizure and other psychiatric medications. Continue topiramte, ropinirole, oxcarbazepine, Keppra and Benztropine. (11) Hypomagnesemia: Plan: replace 2 grams mag sulfate x 1 IV repeat level in am chronically low - due to GI losses from lactulose?? renal losses? Plan hypothyroidism - TSH in August was wnl; cont synthroid updated at bedside dispo - home with HH cleared by PT, OT for home with who provides 24/7 nursing home tomorrow? Admission and Anticipated Discharge Date Admission Date: October 14, 2021 Subjective patient sitting in chair eating lunch at bedside during her lunch she had prolonged mastication expresses concern about progressive memory loss - chronic she c/o right leg pain - also chronic no abd pain we discussed the klebsiella UTI and need for IV abx therapy for such Review of Systems Review of Systems: gen - fatigue, but appetite is good cv - no cp pulm - no dyspnea GI - no nausea or emesis Physical Exam Physical Exam: gen - sitting in chair, eating; prolonged mastication time noted; looks chronically unwell mouth - MMM, no obvious thrush neck - no JVD heart - RRR, s1 s2 lungs - CTA b/l abd - soft NT ND BS+; no obvious ascites neuro - tardive dyskinesia movements; mild tremors of arms; no obvious asterixis ext - no edema, pulses 2+ b/l musculo - b/l foot deformities Results & Data Results & Data ([facility]) Vital Signs (Past 12 Hours) Vital Signs Temp Pulse Resp BP Pulse Ox O2 Del Method 10/17/21 15:35 36.6 C 63 16 143/79 H 96 Room Air Laboratory Results Laboratory Results - last 24 hr 10/17/21 10/17/21 10/17/21 08:27 08:32 09:52 Sodium 144 Potassium 3.9 Chloride 113 H Carbon Dioxide 28 Anion Gap 3 BUN 13 Creatinine 0.65 Est Cr Clr Drug Dosing 105.7 Est GFR ( Amer) 115.8 Est GFR (Non-Af Amer) 99.9 BUN/Creatinine Ratio 20.0 Glucose 162 H POC Glucose 88 Calcium 7.4 L Magnesium 1.6 L Ammonia 77.0 H 10/17/21 10/17/21 11:51 16:46 Sodium Potassium Chloride Carbon Dioxide Anion Gap BUN Creatinine Est Cr Clr Drug Dosing Est GFR ( Amer) Est GFR (Non-Af Amer) BUN/Creatinine Ratio Glucose POC Glucose 139 H 200 H Calcium Magnesium Ammonia PG Care Time/CCT Total # of Minutes Spent Total Time Spent with Patient: Total time spent is greater than 50% in coordination of care (as documented) at patient's floor/unit and/or counseling patient: Coding Level of Care Code 97274 Subseq Hosp Care Lvl 3 Diagnoses Urinary tract infection due to ESBL Klebsiella N39.0; B96.89 Acute hepatic encephalopathy K72.00 Constipation K59.00 Hyperammonemia E72.20 Adrenal insufficiency E27.40 Diabetes mellitus E11.9 Nonalcoholic fatty liver disease K76.0 Depression F32.9 Dyslipidemia E78.5 Parkinsonism G20 Hypomagnesemia E83.42
[2021-10-17] MEDS: ACETAMINOPHEN 500 MG TAB PO SCH (21:18)
[2021-10-17] MEDS: MELATONIN 3 MG TAB PO SCH (21:19)
[2021-10-18] MEDS: LEVOTHYROXINE SODIUM 50 MCG TABLET PO SCH (05:37)
[2021-10-18] MEDS: ESCITALOPRAM OXALATE 20 MG TAB PO SCH (09:02)
[2021-10-18] MEDS: BENZTROPINE MESYLATE 1 MG TAB PO SCH ×3 (09:02→22:30)
[2021-10-18] MEDS: FAMOTIDINE 10 MG TABLET PO SCH (09:03)
[2021-10-18] MEDS: FEXOFENADINE 60 MG TAB PO SCH (09:03)
[2021-10-18] MEDS: HYDROCORTISONE 10 MG TAB PO SCH ×2 (09:05→18:39)
[2021-10-18] MEDS: levETIRAcetam 500 MG TAB PO SCH ×2 (09:07→22:29)
[2021-10-18] MEDS: MAGNESIUM OXIDE 400 MG TAB PO SCH ×2 (09:07→22:31)
[2021-10-18] MEDS: OXcarbazepine 150 MG TABLET PO SCH ×2 (09:08→22:30)
[2021-10-18] MEDS: rifAXIMin 550 MG TABLET PO SCH ×2 (09:08→22:31)
[2021-10-18] MEDS: TOPIRAMATE 100 MG TAB PO SCH ×2 (09:09→22:31)
[2021-10-18] MEDS: rOPINIRole HCL 0.25 MG TABLET PO SCH ×2 (09:09→22:29)
[2021-10-18] MEDS: INSULIN ASPART PER UNIT SC SCH ×4 (09:41→22:37)
[2021-10-18] MEDS: LANTUS PER UNIT CHARGE SQ SCH (09:41)
[2021-10-18] MEDS: ERTAPENEM SODIUM 1,000 MG in SYRINGE 0 ML IV SCH (09:42)
[2021-10-18] MEDS: HEPARIN 100 UNIT/ML 5ML FLUSH FLUSH PRN (09:45)
[2021-10-18 09:51] LABS: Basophils # (auto) 0.05 K/uL (0-0.2); Basophils % (auto) 1.2 %; Eosinophils # (auto) 0.16 K/uL (0-0.50); Eosinophils % (auto) 3.7 %; Hematocrit (blood only) 30.6 % (34.1-44.9); Hemoglobin 10.3 g/dl (12.0-16.0); Immature Granulocytes # (auto) 0.01 K/uL (0.00-0.02); Immature Granulocytes % (auto) 0.2 %; Lymphocytes # (auto) 1.11 K/uL (1.2-3.4); Lymphocytes % (auto) 25.9 %; Mean Corpuscular Hemoglobin 35.4 pg (25.0-34.0); Mean Corpuscular Hgb Conc 33.7 g/dL (32.0-36.0); Mean Corpuscular Volume 105.2 fL (80.0-100.0); Mean Platelet Volume 10.8 fL (9.4-12.3); Monocytes % (auto) 9.3 %; Neutrophils # (auto) 2.55 K/uL (1.4-6.5); Neutrophils % (auto) 59.7 %; Platelet Count 76 K/uL (130-400); RDW Coefficient of Variation 14.9 % (11.5-14.5); RDW Standard Deviation 58.2 fL (36.4-46.3); Red Blood Count 2.91 M/uL (3.93-5.22); White Blood Count 4.28 K/ul (4.8-10.8)
[2021-10-18 10:00] LABS: INR 1.3 (0.9-1.1); Prothrombin Time 13.5 Seconds (9.0-12.0)
[2021-10-18 10:18] LABS: BUN Creatinine Ratio 21.7 (10-20); Calcium 7.6 mg/dl (8.5-10.1); Creatinine Clr Calc Pharmacy 99.5 ml/min; Est GFR (African American) 113.6 ml/min; Magnesium 1.8 mg/dl (1.7-2.4)
[2021-10-18 10:21] LABS: Macrocytosis Present; Polychromasia 1+
[2021-10-18] MEDS: LACTULOSE SYRUP 10 GM/15 ML BTL 960 ML PO SCH ×3 (10:24→22:28)
[2021-10-18] MEDS: PROMETHAZINE HCL 25 MG TAB PO PRN (12:19)
[2021-10-18] MEDS ORDERED: HYDROmorphone INJ 0.5 MG/0.5 ML SYR IV STA (14:33)
[2021-10-18] MEDS ORDERED: PANTOprazole 40 MG TAB PO STA (14:33)
--- NOTE | 2021-10-18 14:38 | Hospitalist Progress Note ---
Date of Service October 18, 2021 Assessment & Plan (1) Abdominal pain: Plan: patient developed abdominal pain overnight associated with numerous diarrhea stools. CT a/p obtained to rule out kidney stones (has prior h/o such) - does have L- sided stones none of which are obstructing. ?duodenitis on CT - add protonix 40mg daily, and change pepcid to 20mg HS. Given broad-spectrum IV abx usage and the copious diarrhea (despite lactulose which is chronic for her) along with CT colonic findings reasonable to check cdiff. Rx as needed. Reassess pain tomorrow. One-time dose of IV dilaudid 0.25mg given for her pain this afternoon. Diet as tolerated. (2) Urinary tract infection due to ESBL Klebsiella: Plan: day #3 of abx therapy initially was on meropenem day #1 then changed to ertapenem 1gm IV daily on day #2 plan 7 days of Rx plan was for outpatient IV ertapenem at [facility] starting tomorrow but patient is not ready for discharge (3) Acute hepatic encephalopathy: Plan: resolved ammonia level 77 on 10/17/21 cont rifaximin + lactulose but decrease latter to BID given 4-5+ stools over last 24 hours and her abdominal pain (4) Constipation: Plan: resolved (5) Hyperammonemia: Plan: peak ammonia level just over 170 now 77 improved s/p lactulose and rifaximin klebsiella UTI likely contributed to the acute decompensation (6) Adrenal insufficiency: Plan: Suspected diagnosis. s/p stress dose steroids this admission now back to baseline doses of hydrocortisone - 10mg qam, 5mg qafternoon - but AM dose should be 15mg and increased to such Endocrinology followup recommended (Dr Ben Craig) - saw them in fall 2020 for this issue thought to be ACTH deficiency if #[address] back on stress dose steroids (7) Diabetes mellitus: Plan: Chronic. A1c was 5.2% in 08/2021. Cont lantus 20 units daily Novolog SSI - may need to adjust (8) Nonalcoholic fatty liver disease: Plan: With cirrhosis. Compensated. Continue Lactulose + rifaximin. EGD 2020 without esophageal varices; did have portal gastropathy.d (9) Depression: Plan: continue Escitalopram (10) Dyslipidemia: Plan: continue Pravastatin (11) Parkinsonism: Plan: Chronic. Secondary to her seizure and other psychiatric medications. Continue topiramte, ropinirole, oxcarbazepine, Keppra and Benztropine. (12) Hypomagnesemia: Plan: replaced normalized today repeat level again in am tends to have chronically low levels - could consider amiloride Plan hypothyroidism - TSH in August was wnl; cont synthroid updated at bedside once again dispo - home with HH cleared by PT, OT for home with who provides 21/10 care hold off on d/c due to #1 today Admission and Anticipated Discharge Date Admission Date: October 14, 2021 Subjective pt's present during the visit pt c/o abdominal pain - left-sided - beginning late last evening constant ever since ate OK breakfast, then poorly at lunch eating didn't make it worse had "4 large bowel movements even before eating breakfast this morning" she requests pain meds for the pain overall "I just don't feel good today" denies emesis no cough or dyspnea Review of Systems Review of Systems: gen - no fevers, feels poorly today cv - no orthopnea pulm - no dyspnea GI - no blood per rectum; liquid stools - copious - no dysuria Physical Exam Physical Exam: gen - lying in bed, looks unwell today mouth - MMM, no obvious thrush neck - no JVD heart - RRR, s1 s2 lungs - CTA b/l abd - soft, tender to palpation near the junction of RUQ and RLQ; ND BS+; no obvious ascites neuro - tardive dyskinesia movements; mild tremors of arms; no obvious asterixis ext - no edema, pulses 2+ b/l musculo - b/l foot deformities psych - mild confusion, but remembered that Dr Torres paid her visit last pm Results & Data Results & Data ([facility]) Vital Signs (Past 12 Hours) Vital Signs Temp Pulse Resp BP Pulse Ox O2 Del Method 10/18/21 07:01 36.6 C 66 16 139/83 98 Room Air Laboratory Results Laboratory Results - last 24 hr 10/18/21 10/18/21 10/18/21 08:11 09:33 09:33 WBC 4.28 L RBC 2.91 L Hgb 10.3 L Hct 30.6 L MCV 105.2 H MCH 35.4 H MCHC 33.7 RDW Std Deviation 58.2 H RDW Coeff of Irina 14.9 H Plt Count 76 L MPV 10.8 Immature Gran % (Auto) 0.2 Neut % (Auto) 59.7 Lymph % (Auto) 25.9 [place] % (Auto) 9.3 Eos % (Auto) 3.7 Baso % (Auto) 1.2 Neut # (Auto) 2.55 Lymph # (Auto) 1.11 L [place] # (Auto) 0.40 Eos # (Auto) 0.16 Baso # (Auto) 0.05 Immature Gran # (Auto) 0.01 Polychromasia 1+ Macrocytosis Present PT 13.5 H INR 1.3 H Sodium Potassium Chloride Carbon Dioxide Anion Gap BUN Creatinine Est Cr Clr Drug Dosing Est GFR ( Amer) Est GFR (Non-Af Amer) BUN/Creatinine Ratio Glucose POC Glucose 123 H Calcium Magnesium 10/18/21 10/18/21 10/18/21 09:33 12:10 17:11 WBC RBC Hgb Hct MCV MCH MCHC RDW Std Deviation RDW Coeff of Irina Plt Count MPV Immature Gran % (Auto) Neut % (Auto) Lymph % (Auto) [place] % (Auto) Eos % (Auto) Baso % (Auto) Neut # (Auto) Lymph # (Auto) [place] # (Auto) Eos # (Auto) Baso # (Auto) Immature Gran # (Auto) Polychromasia Macrocytosis PT INR Sodium 144 Potassium 4.0 Chloride 113 H Carbon Dioxide 26 Anion Gap 5 BUN 15 Creatinine 0.69 Est Cr Clr Drug Dosing 99.5 Est GFR ( Amer) 113.6 Est GFR (Non-Af Amer) 98.0 BUN/Creatinine Ratio 21.7 H Glucose 148 H POC Glucose 103 H 180 H Calcium 7.6 L Magnesium 1.8 10/18/21 20:31 WBC RBC Hgb Hct MCV MCH MCHC RDW Std Deviation RDW Coeff of Irina Plt Count MPV Immature Gran % (Auto) Neut % (Auto) Lymph % (Auto) [place] % (Auto) Eos % (Auto) Baso % (Auto) Neut # (Auto) Lymph # (Auto) [place] # (Auto) Eos # (Auto) Baso # (Auto) Immature Gran # (Auto) Polychromasia Macrocytosis PT INR Sodium Potassium Chloride Carbon Dioxide Anion Gap BUN Creatinine Est Cr Clr Drug Dosing Est GFR ( Amer) Est GFR (Non-Af Amer) BUN/Creatinine Ratio Glucose POC Glucose 272 H Calcium Magnesium Diagnostic Findings Abdomen/Pelvis CT 10/18/21 14:36 CT SCAN OF THE ABDOMEN AND PELVIS WITH IV CONTRAST CLINICAL HISTORY: Left lower quadrant abdominal pain. COMPARISON STUDY: Abdominal CT dated 05/09/2020. TECHNIQUE: Following the IV administration of 94 cc of Optiray 320, CT scan of the abdomen and pelvis is performed from the lung bases to the proximal femora. Images are reviewed in the axial, sagittal, and coronal planes. IV contrast was administered without complication. A dose lowering technique was utilized adhering to the principles of ALARA. The examination is compromised by motion artifact, as well as by streak artifact from the arms which could not be elevated above the abdomen. CT DOSE: 1176.19 mGy.cm FINDINGS: Lung bases: The tip of a central venous infusion port terminates at the cavoatrial junction. The heart is mildly enlarged and without pericardial effusion. The lung bases are clear. There is a tiny hiatal hernia. Esophageal varices are noted. Liver: The contrast-enhanced liver is cirrhotic in morphology and heterogeneous in attenuation. There is hypertrophy of the left lobe and nodularity of the hepatic surface contour. The main portal vein is diminutive but patent. Intrahepatic portal veins are diminutive. The hepatic veins and portal veins are patent. The calcified granulomas noted in the dome of liver. Gallbladder: Surgically absent noting clips in the gallbladder fossa. Spleen: The spleen is enlarged, measuring 16.5 cm in length. There are large varices in the upper abdomen with evidence of a splenorenal shunt. Pancreas: Unremarkable. Adrenal glands: Unremarkable. Kidneys: The contrast enhanced kidneys demonstrate mild cortical atrophy and are without hydronephrosis. The kidneys enhance heterogeneously. There are numerous tiny nonobstructing left renal calculi. Abdominal vasculature: The abdominal aorta is normal in course and caliber. Bowel: There are scattered colonic diverticula without CT evidence of acute diverticulitis. No bowel obstruction is seen. Liquid stool is seen throughout the colon. Question mild wall thickening and edema of the proximal duodenum. The appendix is not identified and reported surgically absent. Peritoneum: There is no intraperitoneal free air or abdominal ascites. Lymphadenopathy: None. Right iliac chain and inguinal lymphadenopathy has improved from 05/09/2020. Pelvic viscera: The bladder is normal as visualized. The uterus is surgically absent. No adnexal lesion is seen. Skeletal structures: The skeletal structures are heterogeneously osteopenic. There is advanced lumbosacral spondylosis. Postlaminectomy change is noted in the lumbar spine. A chronic compression deformity of L1 is unchanged. No lytic or blastic lesions are seen. Posttraumatic deformity and postoperative change is noted in the right proximal femur. There are chronic/healed left-sided rib fractures. IMPRESSION: 1. Liquid stool seen throughout the colon. Correlate clinically for evidence of a diarrheal illness. 2. Question mild wall thickening and edema of the proximal duodenum. Correlate clinically for evidence of duodenitis or possibly ulcer disease. This could be further assessed with endoscopy if clinically warranted. 3. Cirrhotic liver morphology. 4. Marked splenomegaly, esophageal varices, upper abdominal and retroperitoneal collaterals/varices, and a splenorenal shunt indicate portal hypertension. 5. Left-sided nephrolithiasis. 6. Renal cortical enhancement appears heterogeneous. Correlate with clinical findings and urinalysis. 7. Additional findings as above. ACT 112: Negative or not required by law. Electronically signed by: Aiden Randolph M.D. 10/18/2021 6:44 PM PG Care Time/CCT Total # of Minutes Spent Total Time Spent with Patient: Total time spent is greater than 50% in coordination of care (as documented) at patient's floor/unit and/or counseling patient: Coding Level of Care Code 66476 Subseq Hosp Care Lvl 3 Diagnoses Abdominal pain R10.9 Urinary tract infection due to ESBL Klebsiella N39.0; B96.89 Acute hepatic encephalopathy K72.00 Constipation K59.00 Hyperammonemia E72.20 Adrenal insufficiency E27.40 Diabetes mellitus E11.9 Nonalcoholic fatty liver disease K76.0 Depression F32.9 Dyslipidemia E78.5 Parkinsonism G20 Hypomagnesemia E83.42
[2021-10-18] MEDS ORDERED: OPTIRAY 320 100ml IV ONE (15:15)
--- NOTE | 2021-10-18 18:46 | CT Scan Report ---
CT SCAN OF THE ABDOMEN AND PELVIS WITH IV CONTRAST CLINICAL HISTORY: Left lower quadrant abdominal pain. COMPARISON STUDY: Abdominal CT dated 05/09/2020. TECHNIQUE: Following the IV administration of 94 cc of Optiray 320, CT scan of the abdomen and pelvi s is performed from the lung bases to the proximal femora. Images are reviewed in the axial, sagittal , and coronal planes. IV contrast was administered without complication. A dose lowering technique wa s utilized adhering to the principles of ALARA. The examination is compromised by motion artifact, as well as by streak artifact from the arms which could not be elevated above the abdomen. CT DOSE: 1176.19 mGy.cm FINDINGS: Lung bases: The tip of a central venous infusion port terminates at the cavoatrial junction. The hear t is mildly enlarged and without pericardial effusion. The lung bases are clear. There is a tiny hiat al hernia. Esophageal varices are noted. Liver: The contrast-enhanced liver is cirrhotic in morphology and heterogeneous in attenuation. There is hypertrophy of the left lobe and nodularity of the hepatic surface contour. The main portal vein is diminutive but patent. Intrahepatic portal veins are diminutive. The hepatic veins and portal vein s are patent. The calcified granulomas noted in the dome of liver. Gallbladder: Surgically absent noting clips in the gallbladder fossa. Spleen: The spleen is enlarged, measuring 16.5 cm in length. There are large varices in the upper abd omen with evidence of a splenorenal shunt. Pancreas: Unremarkable. Adrenal glands: Unremarkable. Kidneys: The contrast enhanced kidneys demonstrate mild cortical atrophy and are without hydronephros is. The kidneys enhance heterogeneously. There are numerous tiny nonobstructing left renal calculi. Abdominal vasculature: The abdominal aorta is normal in course and caliber. Bowel: There are scattered colonic diverticula without CT evidence of acute diverticulitis. No bowel obstruction is seen. Liquid stool is seen throughout the colon. Question mild wall thickening and rosibel ma of the proximal duodenum. The appendix is not identified and reported surgically absent. Peritoneum: There is no intraperitoneal free air or abdominal ascites. Lymphadenopathy: None. Right iliac chain and inguinal lymphadenopathy has improved from 05/09/2020. Pelvic viscera: The bladder is normal as visualized. The uterus is surgically absent. No adnexal lesi on is seen. Skeletal structures: The skeletal structures are heterogeneously osteopenic. There is advanced lumbos acral spondylosis. Postlaminectomy change is noted in the lumbar spine. A chronic compression deformi ty of L1 is unchanged. No lytic or blastic lesions are seen. Posttraumatic deformity and postoperativ e change is noted in the right proximal femur. There are chronic/healed left-sided rib fractures. IMPRESSION: 1. Liquid stool seen throughout the colon. Correlate clinically for evidence of a diarrheal illness. 2. Question mild wall thickening and edema of the proximal duodenum. Correlate clinically for evidenc e of duodenitis or possibly ulcer disease. This could be further assessed with endoscopy if clinicall y warranted. 3. Cirrhotic liver morphology. 4. Marked splenomegaly, esophageal varices, upper abdominal and retroperitoneal collaterals/varices, and a splenorenal shunt indicate portal hypertension. 5. Left-sided nephrolithiasis. 6. Renal cortical enhancement appears heterogeneous. Correlate with clinical findings and urinalysis. 7. Additional findings as above. ACT 112: Negative or not required by law. Electronically signed by: Aiden Randolph M.D. 10/18/2021 6:44 PM
[2021-10-18] MEDS: ACETAMINOPHEN 500 MG TAB PO SCH (22:29)
[2021-10-18] MEDS: MELATONIN 3 MG TAB PO SCH (22:31)
[2021-10-18] MEDS: FAMOTIDINE 20 MG TAB PO SCH (22:36)
[2021-10-19] MEDS: LEVOTHYROXINE SODIUM 50 MCG TABLET PO SCH (06:32)
[2021-10-19] MEDS: INSULIN ASPART PER UNIT SC SCH ×4 (09:34→21:32)
[2021-10-19] MEDS: LANTUS PER UNIT CHARGE SQ SCH (09:36)
[2021-10-19] MEDS: BENZTROPINE MESYLATE 1 MG TAB PO SCH ×3 (09:41→20:24)
[2021-10-19] MEDS: ESCITALOPRAM OXALATE 20 MG TAB PO SCH (09:41)
[2021-10-19] MEDS: HYDROCORTISONE 10 MG TAB PO SCH ×2 (09:42→19:02)
[2021-10-19] MEDS: FEXOFENADINE 60 MG TAB PO SCH (09:42)
[2021-10-19] MEDS: LACTULOSE SYRUP 10 GM/15 ML BTL 960 ML PO SCH (09:43)
[2021-10-19] MEDS: levETIRAcetam 500 MG TAB PO SCH ×2 (09:44→20:24)
[2021-10-19] MEDS: MAGNESIUM OXIDE 400 MG TAB PO SCH ×2 (09:45→20:25)
[2021-10-19] MEDS: OXcarbazepine 150 MG TABLET PO SCH ×2 (09:45→20:25)
[2021-10-19] MEDS: rOPINIRole HCL 0.25 MG TABLET PO SCH ×2 (09:46→20:26)
[2021-10-19] MEDS: rifAXIMin 550 MG TABLET PO SCH ×2 (09:46→20:25)
[2021-10-19] MEDS: PANTOprazole 40 MG TAB PO SCH (09:46)
[2021-10-19] MEDS: TOPIRAMATE 100 MG TAB PO SCH ×2 (09:47→20:26)
[2021-10-19 09:50] LABS: BUN Creatinine Ratio 25.4 (10-20); Calcium 7.5 mg/dl (8.5-10.1); Magnesium 1.6 mg/dl (1.7-2.4); Potassium 4.2 mmol/L (3.5-5.1)
[2021-10-19] MEDS: HEPARIN 100 UNIT/ML 5ML FLUSH FLUSH PRN ×2 (09:52→14:04)
[2021-10-19] MEDS: ERTAPENEM SODIUM 1,000 MG in SYRINGE 0 ML IV SCH (09:52)
[2021-10-19] MEDS ORDERED: MAGNESIUM SULFATE / D5W 1 GM/100 ML BAG IV ONE (10:30)
[2021-10-19] MEDS: aMILoride HCL 5 MG TAB PO SCH (12:01)
[2021-10-19] MEDS ORDERED: LACTULOSE SYRUP 30 GM/45 ML UDP PO STA (15:09)
[2021-10-19] MEDS ORDERED: MECLIZINE 12.5 MG TAB PO ONE (15:10)
[2021-10-19] MEDS: ACETAMINOPHEN 500 MG TAB PO SCH (20:24)
[2021-10-19] MEDS: FAMOTIDINE 20 MG TAB PO SCH (20:24)
[2021-10-19] MEDS: MELATONIN 3 MG TAB PO SCH (20:25)
[2021-10-19] MEDS: LACTULOSE SYRUP 30 GM/45 ML UDP PO SCH (20:36)
--- NOTE | 2021-10-19 21:29 | Hospitalist Progress Note ---
Date of Service October 19, 2021 Assessment & Plan (1) Abdominal pain: Plan: s/p CT yesterday of abd/pelvis - possible duodenitis seen. Liquid stool throughout the colon. Cont PPI. Cont H2 amaya. Awaiting a stool for c diff testing but suspect liquid stool is simply from frequent lactulose. She looks good today with benign abdominal exam and is eating well. (2) Urinary tract infection due to ESBL Klebsiella: Plan: day #4 of abx therapy initially was on meropenem day #1 then changed to ertapenem 1gm IV daily on day #2 plan 7 days of Rx plan was for outpatient IV ertapenem at [facility] but patient doesn't feel she is ready for discharge. (3) Acute hepatic encephalopathy: Plan: resolved ammonia level 77 on 10/17/21 cont rifaximin + lactulose we had cut back the latter due to frequent stools, now she is having little to no stool go back to 30gm of lactulose TID re-eval tomorrow (4) Constipation: Plan: see above (5) Hyperammonemia: Plan: peak ammonia level just over 170 now 77 improved s/p lactulose and rifaximin klebsiella UTI likely contributed to the acute decompensation (6) Adrenal insufficiency: Plan: Suspected diagnosis. s/p stress dose steroids this admission now back to baseline doses of hydrocortisone - 10mg qam, 5mg qafternoon - but AM dose should be 15mg and increased to such Endocrinology followup recommended (Dr Ben Craig) - saw them in fall 2020 for this issue thought to be ACTH deficiency if #[address] back on stress dose steroids (7) Diabetes mellitus: Plan: Chronic. A1c was 5.2% in 08/2021. Cont lantus 20 units daily Novolog SSI - may need to adjust (8) Nonalcoholic fatty liver disease: Plan: With cirrhosis. Compensated. Continue Lactulose + rifaximin. EGD 2020 without esophageal varices; did have portal gastropathy.d (9) Depression: Plan: continue Escitalopram (10) Dyslipidemia: Plan: continue Pravastatin (11) Parkinsonism: Plan: Chronic. Secondary to her seizure and other psychiatric medications. Continue topiramte, ropinirole, oxcarbazepine, Keppra and Benztropine. (12) Hypomagnesemia: Plan: replaced but she tends to run low on nearly every check this could be due to chronic GI losses and poor intake of mag-rich foods but I can't rule out renal wasting start 5mg amiloride give 1 gm mag sulfate repeat level am Plan hypothyroidism - TSH in August was wnl; cont synthroid vertigo - meclizine 12.5mg x 1 now and re-eval tomorrow; she has not mentioned this on any other visit this week updated at bedside once again dispo - home with HH cleared by PT, OT for home with who provides 21/10 care no discharge today, however Admission and Anticipated Discharge Date Admission Date: October 14, 2021 Subjective at bedside Ms Munson asks "how come you didn't order pain medication yesterday?" we then discussed that I had given a 1x dose of IV dilaudid for her she then complains of dizziness/spinning at rest while sitting in bed states "well - she hasn't complained of dizziness to me" [today] she continues with abdominal pain but despite such ate 100% breakfast and 75% of lunch diarrhea stopped; no BM in 24 hours Review of Systems Review of Systems: gen - no fevers or chills cv - no cp pulm - no cough or dyspnea GI - no vomiting Physical Exam Physical Exam: gen - lying in bed, looks good today; awake/alert/talkative; remembers our visit yesterday mouth - MMM, no obvious thrush eyes - no obvious nystagmus neck - no JVD heart - RRR, s1 s2 lungs - CTA b/l abd - soft, NT, ND, BS+; no obvious ascites neuro - tardive dyskinesia movements; mild tremors of arms; no asterixis ext - no edema, pulses 2+ b/l musculo - b/l foot deformities Results & Data Results & Data ([facility]) Vital Signs (Past 12 Hours) Vital Signs Temp Pulse Resp BP Pulse Ox O2 Del Method 10/19/21 15:48 36.6 C 66 18 125/87 95 Room Air Laboratory Results Laboratory Results - last 24 hr 10/19/21 10/19/21 10/19/21 08:12 08:57 12:32 Sodium 141 Potassium 4.2 Chloride 115 H Carbon Dioxide 24 Anion Gap 2 L BUN 16 Creatinine 0.63 Est Cr Clr Drug Dosing 109.0 Est GFR ( Amer) 117.0 Est GFR (Non-Af Amer) 101.0 BUN/Creatinine Ratio 25.4 H Glucose 110 H POC Glucose 108 H 134 H Calcium 7.5 L Magnesium 1.6 L 10/19/21 10/19/21 17:10 20:45 Sodium Potassium Chloride Carbon Dioxide Anion Gap BUN Creatinine Est Cr Clr Drug Dosing Est GFR ( Amer) Est GFR (Non-Af Amer) BUN/Creatinine Ratio Glucose POC Glucose 128 H 135 H Calcium Magnesium PG Care Time/CCT Total # of Minutes Spent Total Time Spent with Patient: Total time spent is greater than 50% in coordination of care (as documented) at patient's floor/unit and/or counseling patient: Coding Level of Care Code 46500 Subseq Hosp Care Lvl 3 Diagnoses Abdominal pain R10.9 Urinary tract infection due to ESBL Klebsiella N39.0; B96.89 Acute hepatic encephalopathy K72.00 Constipation K59.00 Hyperammonemia E72.20 Adrenal insufficiency E27.40 Diabetes mellitus E11.9 Nonalcoholic fatty liver disease K76.0 Depression F32.9 Dyslipidemia E78.5 Parkinsonism G20 Hypomagnesemia E83.42
[2021-10-20] MEDS: LEVOTHYROXINE SODIUM 50 MCG TABLET PO SCH (05:51)
[2021-10-20] MEDS: levETIRAcetam 500 MG TAB PO SCH ×2 (09:15→20:34)
[2021-10-20] MEDS: HYDROCORTISONE 10 MG TAB PO SCH ×2 (09:15→18:04)
[2021-10-20] MEDS: MAGNESIUM OXIDE 400 MG TAB PO SCH ×2 (09:16→20:35)
[2021-10-20] MEDS: LACTULOSE SYRUP 30 GM/45 ML UDP PO SCH ×3 (09:16→20:34)
[2021-10-20 09:17] LABS: BUN Creatinine Ratio 28.8 (10-20); Calcium 7.7 mg/dl (8.5-10.1); Creatinine Clr Calc Pharmacy 116.4 ml/min; Est GFR (African American) 119.6 ml/min; Est GFR (Non-African American) 103.2 ml/min; Magnesium 1.6 mg/dl (1.7-2.4); Potassium 4.5 mmol/L (3.5-5.1)
[2021-10-20] MEDS: OXcarbazepine 150 MG TABLET PO SCH ×2 (09:17→20:35)
[2021-10-20] MEDS: PANTOprazole 40 MG TAB PO SCH (09:17)
[2021-10-20] MEDS: TOPIRAMATE 100 MG TAB PO SCH ×2 (09:18→20:36)
[2021-10-20] MEDS: rOPINIRole HCL 0.25 MG TABLET PO SCH ×2 (09:18→20:36)
[2021-10-20] MEDS: rifAXIMin 550 MG TABLET PO SCH ×2 (09:18→20:36)
[2021-10-20] MEDS: FEXOFENADINE 60 MG TAB PO SCH (09:19)
[2021-10-20] MEDS: aMILoride HCL 5 MG TAB PO SCH (09:19)
[2021-10-20] MEDS: BENZTROPINE MESYLATE 1 MG TAB PO SCH ×3 (09:19→20:34)
[2021-10-20] MEDS: ESCITALOPRAM OXALATE 20 MG TAB PO SCH (09:19)
[2021-10-20] MEDS: ERTAPENEM SODIUM 1,000 MG in SYRINGE 0 ML IV SCH (09:28)
[2021-10-20] MEDS: INSULIN ASPART PER UNIT SC SCH ×4 (09:29→21:36)
[2021-10-20] MEDS: LANTUS PER UNIT CHARGE SQ SCH (09:29)
[2021-10-20] MEDS: HEPARIN 100 UNIT/ML 5ML FLUSH FLUSH PRN ×2 (09:34→15:31)
[2021-10-20] MEDS: MAGNESIUM SULFATE / D5W 1 GM/100 ML BAG IV SCH ×2 (11:02→12:54)
[2021-10-20] MEDS ORDERED: oxyCODONE HCL IR 5 MG TAB (IMMEDIATE RELEASE) PO STA (18:31)
[2021-10-20] MEDS: ACETAMINOPHEN 500 MG TAB PO SCH (20:33)
[2021-10-20] MEDS: FAMOTIDINE 20 MG TAB PO SCH (20:34)
[2021-10-20] MEDS: MELATONIN 3 MG TAB PO SCH (20:35)
[2021-10-20] MEDS: CLOTRIMAZOLE VAGINAL CR 7 APPLN/45 GM TUBE PV SCH (21:36)
[2021-10-21] MEDS: LEVOTHYROXINE SODIUM 50 MCG TABLET PO SCH (05:31)
--- NOTE | 2021-10-21 08:00 | Hospitalist Progress Note ---
Date of Service October 20, 2021 Assessment & Plan (1) Abdominal pain: Plan: resolved. s/p CT abd/pelvis this admission - possible duodenitis seen. Liquid stool throughout the colon seen as well. PPI added this week; also remains on H2 amaya. I had been concerned about the liquid stool and possibility of c diff but stool today was normal/formed. Cont to monitor. Would d/c home on PPI in addition to her H2 amaya. (2) Urinary tract infection due to ESBL Klebsiella: Plan: day #5 of abx therapy initially was on meropenem day #1 then changed to ertapenem 1gm IV daily on day #2 plan 7 days of Rx - last dose 10/22/21 (3) Acute hepatic encephalopathy: Plan: resolved ammonia level 77 on 10/17/21 cont rifaximin + lactulose we had cut back the latter due to frequent stools, now she is having little to no stool go back to 30gm of lactulose TID ammonia level in am (4) Constipation: Plan: see above (5) Hyperammonemia: Plan: peak ammonia level just over 170 now 77 improved s/p lactulose and rifaximin klebsiella UTI likely contributed to the acute decompensation this admission (6) Adrenal insufficiency: Plan: Suspected diagnosis. s/p stress dose steroids this admission now back to baseline doses of hydrocortisone - 10mg qam, 5mg qafternoon - but AM dose should be 15mg and increased to such Endocrinology followup recommended (Dr Ben Craig) - saw them in fall 2020 for this issue thought to be ACTH deficiency if #[address] back on stress dose steroids (7) Diabetes mellitus: Plan: Chronic. A1c was 5.2% in 08/2021. Cont lantus 20 units daily Novolog SSI Control acceptable at this time (8) Nonalcoholic fatty liver disease: Plan: With cirrhosis. Compensated. Continue Lactulose + rifaximin. EGD 2020 without esophageal varices; did have portal gastropathy at that time. (9) Depression: Plan: continue Escitalopram (10) Dyslipidemia: Plan: continue Pravastatin (11) Parkinsonism: Plan: Chronic. Secondary to her seizure and other psychiatric medications. Continue topiramte, ropinirole, oxcarbazepine, Keppra and Benztropine. (12) Hypomagnesemia: Plan: replaced multiple times this admission but she tends to run low on nearly every check based on records this could be due to chronic GI losses and poor intake of mag-rich foods but I can't rule out renal wasting started 5mg amiloride give 1 gm mag sulfate once again today repeat level am Plan hypothyroidism - TSH in August was wnl; cont synthroid vertigo - complained of such once this week; treated with meclizine x 1; no complaints of this since then vaginitis - probably candidal - clotrimazole vag insert HS x 5-7 days she c/o RLE pain (chronic, due to prior fracture s/p ORIF) - gave oxycodone 2.5mg po x 1 today updated at bedside once again today dispo - home with HH cleared by PT, OT for home with who provides 21/10 care discharge to home after ertapenem dose on 10/22 Admission and Anticipated Discharge Date Admission Date: October 14, 2021 Subjective patient feeling well today abd pain resolved eating well - 75-100% of meals 1 large BM today - FORMED she does c/o vaginal itching and dysuria staff report that with rolling/turning, and skin care, she has an odor from the vaginal region also asks for something for her RLE pain (chronic) Review of Systems Review of Systems: gen - no fevers or chills cv - no cp, no orthopnea pulm - no cough or dyspnea GI - no abd pain/nausea/emesis Physical Exam Physical Exam: gen - lying in bed, looks good today, eating her meal, awake/alert mouth - MMM neck - no JVD heart - RRR, s1 s2, no murmur lungs - CTA b/l, mildly decreased BS b/l bases abd - soft, NT, ND, BS+; no obvious ascites neuro - tardive dyskinesia movements; mild tremors of arms (baseline); no asterixis ext - no edema, pulses 2+ b/l musculo - b/l foot deformities - chronic Results & Data Results & Data ([facility]) Vital Signs (Past 12 Hours) Vital Signs Temp Pulse Resp BP Pulse Ox O2 Del Method 10/20/21 21:52 36.9 C 63 18 128/75 97 Room Air 10/20/21 20:30 Room Air Laboratory Results Laboratory Results - last 24 hr 10/20/21 10/20/21 10/20/21 08:25 08:47 12:40 Sodium 138 Potassium 4.5 Chloride 113 H Carbon Dioxide 24 Anion Gap 1 L BUN 17 Creatinine 0.59 L Est Cr Clr Drug Dosing 116.4 Est GFR ( Amer) 119.6 Est GFR (Non-Af Amer) 103.2 BUN/Creatinine Ratio 28.8 H Glucose 133 H POC Glucose 147 H 170 H Calcium 7.7 L Magnesium 1.6 L 10/20/21 10/20/21 10/21/21 17:03 20:29 07:46 Sodium Potassium Chloride Carbon Dioxide Anion Gap BUN Creatinine Est Cr Clr Drug Dosing Est GFR ( Amer) Est GFR (Non-Af Amer) BUN/Creatinine Ratio Glucose POC Glucose 156 H 170 H 142 H Calcium Magnesium PG Care Time/CCT Total # of Minutes Spent Total Time Spent with Patient: Total time spent is greater than 50% in coordination of care (as documented) at patient's floor/unit and/or counseling patient: Coding Level of Care Code 28740 Subseq Hosp Care Lvl 2 Diagnoses Abdominal pain R10.9 Urinary tract infection due to ESBL Klebsiella N39.0; B96.89 Acute hepatic encephalopathy K72.00 Constipation K59.00 Hyperammonemia E72.20 Adrenal insufficiency E27.40 Diabetes mellitus E11.9 Nonalcoholic fatty liver disease K76.0 Depression F32.9 Dyslipidemia E78.5 Parkinsonism G20 Hypomagnesemia E83.42
[2021-10-21] MEDS: ERTAPENEM SODIUM 1,000 MG in SYRINGE 0 ML IV SCH (08:16)
[2021-10-21] MEDS: HEPARIN 100 UNIT/ML 5ML FLUSH FLUSH PRN (08:16)
[2021-10-21 08:50] LABS: BUN Creatinine Ratio 25.5 (10-20); Calcium 7.5 mg/dl (8.5-10.1); Creatinine Clr Calc Pharmacy 124.9 ml/min; Est GFR (African American) 122.4 ml/min; Est GFR (Non-African American) 105.6 ml/min; Magnesium 1.7 mg/dl (1.7-2.4); Potassium 4.6 mmol/L (3.5-5.1)
[2021-10-21] MEDS: levETIRAcetam 500 MG TAB PO SCH ×2 (09:05→20:50)
[2021-10-21] MEDS: TOPIRAMATE 100 MG TAB PO SCH ×2 (09:05→20:51)
[2021-10-21] MEDS: FEXOFENADINE 60 MG TAB PO SCH (09:06)
[2021-10-21] MEDS: rOPINIRole HCL 0.25 MG TABLET PO SCH ×2 (09:06→20:51)
[2021-10-21] MEDS: rifAXIMin 550 MG TABLET PO SCH ×2 (09:06→20:51)
[2021-10-21] MEDS: MAGNESIUM OXIDE 400 MG TAB PO SCH ×2 (09:06→20:50)
[2021-10-21] MEDS: HYDROCORTISONE 10 MG TAB PO SCH ×2 (09:06→18:14)
[2021-10-21] MEDS: BENZTROPINE MESYLATE 1 MG TAB PO SCH ×3 (09:06→20:51)
[2021-10-21] MEDS: LACTULOSE SYRUP 30 GM/45 ML UDP PO SCH ×3 (09:07→20:48)
[2021-10-21] MEDS: PANTOprazole 40 MG TAB PO SCH (09:07)
[2021-10-21] MEDS: ESCITALOPRAM OXALATE 20 MG TAB PO SCH (09:07)
[2021-10-21] MEDS: aMILoride HCL 5 MG TAB PO SCH (09:07)
[2021-10-21] MEDS: OXcarbazepine 150 MG TABLET PO SCH ×2 (09:07→20:50)
[2021-10-21] MEDS: LANTUS PER UNIT CHARGE SQ SCH (09:14)
[2021-10-21] MEDS: INSULIN ASPART PER UNIT SC SCH ×4 (09:15→20:52)
[2021-10-21] MEDS: PROMETHAZINE HCL 25 MG TAB PO PRN (10:34)
--- NOTE | 2021-10-21 15:11 | Hospitalist Progress Note ---
Date of Service October 21, 2021 Assessment & Plan (1) Abdominal pain: Plan: Resolved. s/p CT abd/pelvis this admission - possible duodenitis seen. Liquid stool throughout the colon seen as well. PPI added this week; also remains on H2 amaya. Cont to monitor. Would d/c home on PPI in addition to her H2 amaya. Today states her pain is back although appears comfortable (2) Urinary tract infection due to ESBL Klebsiella: Plan: day #6 of abx therapy initially was on meropenem day #1 then changed to ertapenem 1gm IV daily on day #2 plan 7 days of Rx - last dose 10/22/21 (3) Acute hepatic encephalopathy: Plan: resolved ammonia level 77 on 10/17/21 cont rifaximin + lactulose we had cut back the latter due to frequent stools, now she is having little to no stool go back to 30gm of lactulose TID ammonia level this AM 95 but mentating well, will continue current dose and repeat level in AM (4) Constipation: Plan: see above (5) Hyperammonemia: Plan: peak ammonia level just over 170 improved s/p lactulose and rifaximin klebsiella UTI likely contributed to the acute decompensation this admission (6) Adrenal insufficiency: Plan: Suspected diagnosis. s/p stress dose steroids this admission now back to baseline doses of hydrocortisone - 10mg qam, 5mg qafternoon - but AM dose should be 15mg and increased to such Endocrinology followup recommended (Dr Ben Craig) - saw them in fall 2020 for this issue thought to be ACTH deficiency if #[address] back on stress dose steroids (7) Diabetes mellitus: Plan: Chronic. A1c was 5.2% in 08/2021. Cont lantus 20 units daily Novolog SSI Control acceptable at this time (8) Nonalcoholic fatty liver disease: Plan: With cirrhosis. Compensated. Continue Lactulose + rifaximin. EGD 2020 without esophageal varices; did have portal gastropathy at that time. (9) Depression: Plan: continue Escitalopram (10) Dyslipidemia: Plan: continue Pravastatin (11) Parkinsonism: Plan: Chronic. Secondary to her seizure and other psychiatric medications. Continue topiramte, ropinirole, oxcarbazepine, Keppra and Benztropine. (12) Hypomagnesemia: Plan: replaced multiple times this admission but she tends to run low on nearly every check based on records this could be due to chronic GI losses and poor intake of mag-rich foods but I can't rule out renal wasting started 5mg amiloride give 1 gm mag sulfate once again today repeat level today normal at 1.7 Plan hypothyroidism - TSH in August was wnl; cont synthroid vertigo - complained of such once this week; treated with meclizine x 1; no c omplaints of this since then vaginitis - probably candidal - clotrimazole vag insert HS x 5 days she c/o RLE pain (chronic, due to prior fracture s/p ORIF) - given oxyIR on 2.5mg x1 on 10/20 dispo - home with HH cleared by PT, OT for home with who provides 21/10 care discharge to home after ertapenem dose on Fri, 10/22 Admission and Anticipated Discharge Date Admission Date: October 14, 2021 Subjective Patient seen on daily rounds this morning. She is resting in bed. Reports no issues with moving her bowels today. She continues to c/o abd pain. Denies n/v/d. Started yesterday on Clotrimazole for vaginal itching/yeast infection. Review of Systems Review of Systems: All systems reviewed and are unremarkable except as noted in HPI and below. Denies fever, chills, fatigue, headache, nasal congestion, sore throat, cough, chest pain, shortness of breath, palpitations, orthopnea, PND, n/v/d, constipation, dysuria, hematuria, frequency, back pain, joint pain or swelling, easy bruising or bleeding, skin lesions or rashes. Physical Exam Physical Exam: GENERAL: 55 yo Well-developed, well-nourished WF. NAD. LUNGS: Clear to auscultation bilaterally. No W/R/R. CARDIOVASCULAR: Regular rate and rhythm. ABDOMEN: Soft, non-tender and non-distended. BS normoactive x 4 quad. EXTREMITIES: No edema. Non-tender. Peripheral pulses +2/4. NEUROLOGIC: A&O x3. Nonfocal PSYCHIATRIC: Cooperative. Appropriate mood and affect. SKIN: Warm, dry, intact. No rashes or lesions. Results & Data Results & Data ([facility]) Vital Signs (Past 12 Hours) Vital Signs Temp Pulse Resp BP Pulse Ox O2 Del Method 10/21/21 14:52 36.5 C 58 L 18 109/55 L 98 Room Air 10/21/21 08:43 Room Air 10/21/21 08:03 36.6 C 58 L 16 118/75 98 Room Air Laboratory Results 10/18/21 09:33 10/21/21 08:16 PG Care Time/CCT Total # of Minutes Spent Total Time Spent with Patient: Total time spent is greater than 50% in coordination of care (as documented) at patient's floor/unit and/or counseling patient: Coding Level of Care Code 12595 Subseq Hosp Care Lvl 2 Diagnoses Abdominal pain R10.9 Urinary tract infection due to ESBL Klebsiella N39.0; B96.89 Acute hepatic encephalopathy K72.00 Constipation K59.00 Hyperammonemia E72.20 Adrenal insufficiency E27.40 Diabetes mellitus E11.9 Nonalcoholic fatty liver disease K76.0 Depression F32.9 Dyslipidemia E78.5 Parkinsonism G20 Hypomagnesemia E83.42
[2021-10-21] MEDS: MELATONIN 3 MG TAB PO SCH (20:50)
[2021-10-21] MEDS: FAMOTIDINE 20 MG TAB PO SCH (20:51)
[2021-10-21] MEDS: ACETAMINOPHEN 500 MG TAB PO SCH (20:51)
[2021-10-21] MEDS: CLOTRIMAZOLE VAGINAL CR 7 APPLN/45 GM TUBE PV SCH (20:52)
[2021-10-22] MEDS: LEVOTHYROXINE SODIUM 50 MCG TABLET PO SCH (06:34)
[2021-10-22] MEDS: MAGNESIUM OXIDE 400 MG TAB PO SCH ×2 (08:19→22:20)
[2021-10-22] MEDS: rifAXIMin 550 MG TABLET PO SCH ×2 (08:19→22:20)
[2021-10-22] MEDS: rOPINIRole HCL 0.25 MG TABLET PO SCH ×2 (08:19→22:20)
[2021-10-22] MEDS: TOPIRAMATE 100 MG TAB PO SCH ×2 (08:19→22:22)
[2021-10-22] MEDS: LACTULOSE SYRUP 30 GM/45 ML UDP PO SCH ×4 (08:19→22:18)
[2021-10-22] MEDS: HYDROCORTISONE 10 MG TAB PO SCH ×2 (08:20→17:17)
[2021-10-22] MEDS: BENZTROPINE MESYLATE 1 MG TAB PO SCH ×3 (08:20→22:22)
[2021-10-22] MEDS: FEXOFENADINE 60 MG TAB PO SCH (08:21)
[2021-10-22] MEDS: OXcarbazepine 150 MG TABLET PO SCH ×2 (08:21→22:21)
[2021-10-22] MEDS: levETIRAcetam 500 MG TAB PO SCH ×2 (08:21→22:20)
[2021-10-22] MEDS: PANTOprazole 40 MG TAB PO SCH (08:21)
[2021-10-22] MEDS: ESCITALOPRAM OXALATE 20 MG TAB PO SCH (08:21)
[2021-10-22] MEDS: aMILoride HCL 5 MG TAB PO SCH (08:22)
[2021-10-22] MEDS: ERTAPENEM SODIUM 1,000 MG in SYRINGE 0 ML IV SCH (08:26)
[2021-10-22] MEDS: HEPARIN 100 UNIT/ML 5ML FLUSH FLUSH PRN (08:26)
[2021-10-22] MEDS: INSULIN ASPART PER UNIT SC SCH ×4 (08:38→22:13)
[2021-10-22] MEDS: LANTUS PER UNIT CHARGE SQ SCH (08:38)
--- NOTE | 2021-10-22 12:36 | Hospitalist Progress Note ---
Date of Service October 22, 2021 Assessment & Plan (1) Abdominal pain: Plan: Resolved. s/p CT abd/pelvis this admission - possible duodenitis seen. Liquid stool throughout the colon seen as well. PPI added this week; also remains on H2 amaya. Cont to monitor. Would d/c home on PPI in addition to her H2 amaya. Today states her pain is back although appears comfortable (2) Urinary tract infection due to ESBL Klebsiella: Plan: day #6 of abx therapy initially was on meropenem day #1 then changed to ertapenem 1gm IV daily on day #2 plan 7 days of Rx - last dose was this morning, 10/22/21 (3) Acute hepatic encephalopathy: Plan: ammonia level 77 on 10/17/21, up to 95 on 10/21 and up to 125 on 10/22 cont rifaximin + lactulose Will increase Lactulose to 30g QID Repeat Ammonia level tomorrow morning (4) Constipation: Plan: see above (5) Hyperammonemia: Plan: peak ammonia level just over 170 improved s/p lactulose and rifaximin klebsiella UTI likely contributed to the acute decompensation this admission (6) Adrenal insufficiency: Plan: Suspected diagnosis. s/p stress dose steroids this admission now back to baseline doses of hydrocortisone - 10mg qam, 5mg qafternoon - but AM dose should be 15mg and increased to such Endocrinology followup recommended (Dr Ben Craig) - saw them in fall 2020 for this issue thought to be ACTH deficiency if #[address] back on stress dose steroids (7) Diabetes mellitus: Plan: Chronic. A1c was 5.2% in 08/2021. Cont lantus 20 units daily Novolog SSI Control acceptable at this time (8) Nonalcoholic fatty liver disease: Plan: With cirrhosis. Compensated. Continue Lactulose + rifaximin. EGD 2020 without esophageal varices; did have portal gastropathy at that time. (9) Depression: Plan: continue Escitalopram (10) Dyslipidemia: Plan: continue Pravastatin (11) Parkinsonism: Plan: Chronic. Secondary to her seizure and other psychiatric medications. Continue topiramte, ropinirole, oxcarbazepine, Keppra and Benztropine. (12) Hypomagnesemia: Plan: replaced multiple times this admission but she tends to run low on nearly every check based on records this could be due to chronic GI losses and poor intake of mag-rich foods but I can't rule out renal wasting started 5mg amiloride give 1 gm mag sulfate once again today repeat level today normal at 1.7 Plan hypothyroidism - TSH in August was wnl; cont synthroid vertigo - complained of such once this week; treated with meclizine x 1; no co mplaints of this since then vaginitis - probably candidal - clotrimazole vag insert HS x 5 days she c/o RLE pain (chronic, due to prior fracture s/p ORIF) - given oxyIR on 2.5mg x1 on 10/20 dispo - home with HH cleared by PT, OT for home with who provides 21/10 care hopefully can be discharged home on 10/23 after adjusting lactulose and improvement in her ammonia level plan d/w Dr. Faulkner Admission and Anticipated Discharge Date Admission Date: October 14, 2021 Subjective Patient seen on daily rounds this morning. She is currently sleeping, didn't engage in answering any questions. No issues reported by nursing. She did have a documented moderate size loose BM today. Review of Systems Review of Systems: unobtainable as pt was sleeping/didn't participate in quest ions Physical Exam Physical Exam: GENERAL: 55 yo Well-developed, well-nourished WF. NAD. LUNGS: Clear to auscultation bilaterally. No W/R/R. CARDIOVASCULAR: Regular rate and rhythm. ABDOMEN: Soft, non-tender and non-distended. BS normoactive x 4 quad. EXTREMITIES: No edema. Non-tender. Peripheral pulses +2/4. NEUROLOGIC: A&O x3. Nonfocal PSYCHIATRIC: Cooperative. Appropriate mood and affect. SKIN: Warm, dry, intact. No rashes or lesions. Results & Data Results & Data ([facility]) Vital Signs (Past 12 Hours) Vital Signs Temp Pulse Resp BP Pulse Ox O2 Del Method 10/22/21 07:39 36.6 C 67 17 129/74 98 Room Air Laboratory Results Ammonia = 125 (yesterday 95) PG Care Time/CCT Total # of Minutes Spent Total Time Spent with Patient: Total time spent is greater than 50% in coordination of care (as documented) at patient's floor/unit and/or counseling patient: Coding Level of Care Code 54208 Subseq Hosp Care Lvl 2 Diagnoses Abdominal pain R10.9 Urinary tract infection due to ESBL Klebsiella N39.0; B96.89 Acute hepatic encephalopathy K72.00 Constipation K59.00 Hyperammonemia E72.20 Adrenal insufficiency E27.40 Diabetes mellitus E11.9 Nonalcoholic fatty liver disease K76.0 Depression F32.9 Dyslipidemia E78.5 Parkinsonism G20 Hypomagnesemia E83.42
[2021-10-22] MEDS: ACETAMINOPHEN 500 MG TAB PO SCH (22:19)
[2021-10-22] MEDS: MELATONIN 3 MG TAB PO SCH (22:21)
[2021-10-22] MEDS: FAMOTIDINE 20 MG TAB PO SCH (22:22)
[2021-10-22] MEDS: CLOTRIMAZOLE VAGINAL CR 7 APPLN/45 GM TUBE PV SCH (22:26)
[2021-10-23] MEDS: LEVOTHYROXINE SODIUM 50 MCG TABLET PO SCH (06:26)
[2021-10-23] MEDS: PANTOprazole 40 MG TAB PO SCH (07:53)
[2021-10-23] MEDS: rOPINIRole HCL 0.25 MG TABLET PO SCH (07:53)
[2021-10-23] MEDS: rifAXIMin 550 MG TABLET PO SCH (07:53)
[2021-10-23] MEDS: OXcarbazepine 150 MG TABLET PO SCH (07:53)
[2021-10-23] MEDS: TOPIRAMATE 100 MG TAB PO SCH (07:53)
[2021-10-23] MEDS: HYDROCORTISONE 10 MG TAB PO SCH (07:54)
[2021-10-23] MEDS: MAGNESIUM OXIDE 400 MG TAB PO SCH (07:54)
[2021-10-23] MEDS: levETIRAcetam 500 MG TAB PO SCH (07:54)
[2021-10-23] MEDS: LACTULOSE SYRUP 30 GM/45 ML UDP PO SCH ×2 (07:55→12:57)
[2021-10-23] MEDS: FEXOFENADINE 60 MG TAB PO SCH (07:55)
[2021-10-23] MEDS: ESCITALOPRAM OXALATE 20 MG TAB PO SCH (07:55)
[2021-10-23] MEDS: BENZTROPINE MESYLATE 1 MG TAB PO SCH ×2 (07:55→12:57)
[2021-10-23] MEDS: aMILoride HCL 5 MG TAB PO SCH (07:56)
[2021-10-23] MEDS: HEPARIN 100 UNIT/ML 5ML FLUSH FLUSH PRN (08:58)
[2021-10-23] MEDS: INSULIN ASPART PER UNIT SC SCH ×2 (09:10→12:56)
[2021-10-23] MEDS: LANTUS PER UNIT CHARGE SQ SCH (09:11)
--- NOTE | 2021-10-23 14:04 | Discharge Summary ---
Date of Service October 23, 2021 Admission HPI Per Admitting Provider Marcellerigoberto Munson is a 55yo female with history of NAFLD with Cirrhosis and hepatic encephalopathy on daily Lactulose and Rifaximin, adrenal insufficiency on hydrocortisone, DM, Depression and Seizure. Patient is well known to the medical service - recently hospitalized from 09/22/21 - 09/24/21 for hepatic encephalopathy most likely secondary to medication non-adherence. She presents today with complaint of constipation. She has not had a bowel movement yet today and had only a small BM yesterday. She feels ill, "sick and confused". is at bedside and states that patient has been intermittently confused and more sleepy than usual. She denies fever but has had some chills. No additional complaints at this time. No sick contacts, recent travel. No changes in medications - patient reports compliance with medications. Principal Diagnosis 1. ESBL Klebsiella UTI s/p 7 day course of Ertapenem 2. Hepatic encephalopathy - resolved 3. Hypomagnesemia - replaced/resolved 4. Abdominal pain Discharge Exam GENERAL: 55 yo Well-developed, well-nourished WF. NAD. LUNGS: Clear to auscultation bilaterally. No W/R/R. CARDIOVASCULAR: Regular rate and rhythm. ABDOMEN: Soft, non-tender and non-distended. BS normoactive x 4 quad. EXTREMITIES: No edema. Non-tender. Peripheral pulses +2/4. NEUROLOGIC: A&O x3. Nonfocal PSYCHIATRIC: Cooperative. Appropriate mood and affect. SKIN: Warm, dry, intact. No rashes or lesions. Discharge Data Allergies Allergy/AdvReac Type Severity Reaction Status Date / Time metoclopramide Allergy Severe SEIZURES Verified 10/13/21 23:08 metronidazole Allergy Severe SEIZURE Verified 10/13/21 23:08 tramadol Allergy Severe SEIZURES Verified 10/13/21 23:08 amoxicillin Allergy Intermediate SEE COMMENT Verified 10/13/21 23:08 baclofen Allergy Intermediate RASH Verified 10/13/21 23:08 butalbital Allergy Intermediate HIVES Verified 10/13/21 23:08 dicyclomine Allergy Intermediate HIVES Verified 10/13/21 23:08 nitrofurantoin Allergy Intermediate HIVES/RASH/SEVERE Verified 10/13/21 23:08 [From Macrobid] ITCHING pollen extracts Allergy Intermediate Hives Verified 10/13/21 23:08 Sulfa (Sulfonamide Allergy Intermediate CAUSES Verified 10/13/21 23:08 Antibiotics) BLACK STOOLS Tetracyclines Allergy Intermediate DOXYCYCLINE Verified 10/13/21 23:08 -HIVES adhesive Allergy Mild RASH, Verified 10/13/21 23:08 DUODERM=RED,ITCHY celecoxib Allergy Mild HIVES Verified 10/13/21 23:08 sulindac Allergy Mild ALLERGY Verified 10/13/21 23:08 LISTED "CLONDORAL"--HIVES Cephalosporins AdvReac Severe TURNS Verified 10/13/21 23:08 STOOL VERY DARK paroxetine [From Paxil] AdvReac Severe Vomiting Verified 10/13/21 23:08 dextromethorphan AdvReac Mild Vomiting Verified 10/13/21 23:08 Consultations 10/14/21 01:04 ED Decision to Admit Stat 10/15/21 10:50 Consult Orthopedic Surgery Routine Ordered Studies KUB X-Ray 10/14/21 07:17 KUB CLINICAL HISTORY: Constipation. FINDINGS: 3 AP supine abdominal radiographs are compared to study dated 09/22/2021. Enteric tube has been removed from previous. There is a nonobstructed abdominal bowel gas pattern. There is rectosigmoid fecal impaction. Mild to moderate fecal retention is seen throughout the remainder of the colon. Cholecystectomy clips are noted in the right upper quadrant. No evidence of intraperitoneal free air is seen on these supine images. There are no abnormal abdominal calcifications. The lung bases are clear as imaged. The skeletal structures are osteopenic. There are healed left-sided rib fractures as well as chronic posttraumatic deformity of the right proximal femur. IMPRESSION: Rectosigmoid fecal impaction and mild to moderate constipation. Electronically signed by: Aiden Randolph M.D. 10/14/2021 9:37 AM Abdomen/Pelvis CT 10/18/21 14:36 CT SCAN OF THE ABDOMEN AND PELVIS WITH IV CONTRAST CLINICAL HISTORY: Left lower quadrant abdominal pain. COMPARISON STUDY: Abdominal CT dated 05/09/2020. TECHNIQUE: Following the IV administration of 94 cc of Optiray 320, CT scan of the abdomen and pelvis is performed from the lung bases to the proximal femora. Images are reviewed in the axial, sagittal, and coronal planes. IV contrast was administered without complication. A dose lowering technique was utilized adhering to the principles of ALARA. The examination is compromised by motion artifact, as well as by streak artifact from the arms which could not be elevated above the abdomen. CT DOSE: 1176.19 mGy.cm FINDINGS: Lung bases: The tip of a central venous infusion port terminates at the cavoatrial junction. The heart is mildly enlarged and without pericardial effusion. The lung bases are clear. There is a tiny hiatal hernia. Esophageal varices are noted. Liver: The contrast-enhanced liver is cirrhotic in morphology and heterogeneous in attenuation. There is hypertrophy of the left lobe and nodularity of the hepatic surface contour. The main portal vein is diminutive but patent. Intrahepatic portal veins are diminutive. The hepatic veins and portal veins are patent. The calcified granulomas noted in the dome of liver. Gallbladder: Surgically absent noting clips in the gallbladder fossa. Spleen: The spleen is enlarged, measuring 16.5 cm in length. There are large varices in the upper abdomen with evidence of a splenorenal shunt. Pancreas: Unremarkable. Adrenal glands: Unremarkable. Kidneys: The contrast enhanced kidneys demonstrate mild cortical atrophy and are without hydronephrosis. The kidneys enhance heterogeneously. There are numerous tiny nonobstructing left renal calculi. Abdominal vasculature: The abdominal aorta is normal in course and caliber. Bowel: There are scattered colonic diverticula without CT evidence of acute diverticulitis. No bowel obstruction is seen. Liquid stool is seen throughout the colon. Question mild wall thickening and edema of the proximal duodenum. The appendix is not identified and reported surgically absent. Peritoneum: There is no intraperitoneal free air or abdominal ascites. Lymphadenopathy: None. Right iliac chain and inguinal lymphadenopathy has improved from 05/09/2020. Pelvic viscera: The bladder is normal as visualized. The uterus is surgically absent. No adnexal lesion is seen. Skeletal structures: The skeletal structures are heterogeneously osteopenic. There is advanced lumbosacral spondylosis. Postlaminectomy change is noted in th e lumbar spine. A chronic compression deformity of L1 is unchanged. No lytic or blastic lesions are seen. Posttraumatic deformity and postoperative change is noted in the right proximal femur. There are chronic/healed left-sided rib fractures. IMPRESSION: 1. Liquid stool seen throughout the colon. Correlate clinically for evidence of a diarrheal illness. 2. Question mild wall thickening and edema of the proximal duodenum. Correlate clinically for evidence of duodenitis or possibly ulcer disease. This could be further assessed with endoscopy if clinically warranted. 3. Cirrhotic liver morphology. 4. Marked splenomegaly, esophageal varices, upper abdominal and retroperitoneal collaterals/varices, and a splenorenal shunt indicate portal hypertension. 5. Left-sided nephrolithiasis. 6. Renal cortical enhancement appears heterogeneous. Correlate with clinical findings and urinalysis. 7. Additional findings as above. ACT 112: Negative or not required by law. Electronically signed by: Aiden Randolph M.D. 10/18/2021 6:44 PM Hospital Course (1) Abdominal pain: Resolved. s/p CT abd/pelvis this admission - possible duodenitis seen. Liquid stool throughout the colon seen as well. PPI added this week; also remains on H2 amaya. Cont to monitor. Would d/c home on PPI in addition to her H2 amaya. Today states her pain is back although appears comfortable (2) Urinary tract infection due to ESBL Klebsiella: initially was on meropenem day #1 then changed to ertapenem 1gm IV daily on day #2 completed 7 day course of antibiotics as of 10/22/21 (3) Acute hepatic encephalopathy: ammonia level 77 on 10/17/21, up to 95 on 10/21 and up to 125 on 10/22 cont rifaximin + lactulose Will increase Lactulose to 30g QID Repeat Ammonia level this AM trending down to 108 Will plan to d/c on Lactulose 30g QID, new script sent to pharmacy Of note, this patient is HIGHLY noncompliant and frequently will not take this medication as directed despite thorough education/counseling on its importance. I anticipate at some point, she will not take the medication as directed. Subsequently, she is a high readmission risk. (4) Constipation: see above (5) Hyperammonemia: peak ammonia level just over 170 improved s/p lactulose and rifaximin klebsiella UTI likely contributed to the acute decompensation this admission (6) Adrenal insufficiency: Suspected diagnosis. s/p stress dose steroids this admission now back to baseline doses of hydrocortisone - 10mg qam, 5mg qafternoon - but AM dose should be 15mg and increased to such Endocrinology followup recommended (Dr Ben Craig) - saw them in fall 2020 for this issue thought to be ACTH deficiency if #[address] back on stress dose steroids (7) Diabetes mellitus: Chronic. A1c was 5.2% in 08/2021. Cont lantus 20 units daily Novolog SSI Control acceptable at this time (8) Nonalcoholic fatty liver disease: With cirrhosis. Compensated. Continue Lactulose + rifaximin. EGD 2020 without esophageal varices; did have portal gastropathy at that time. (9) Depression: continue Escitalopram (10) Dyslipidemia: continue Pravastatin (11) Parkinsonism: Chronic. Secondary to her seizure and other psychiatric medications. Continue topiramte, ropinirole, oxcarbazepine, Keppra and Benztropine. (12) Hypomagnesemia: replaced multiple times this admission but she tends to run low on nearly every check based on records this could be due to chronic GI losses and poor intake of mag-rich foods but I can't rule out renal wasting started 5mg amiloride give 1 gm mag sulfate once again today repeat level today normal at 1.7 Plan hypothyroidism - TSH in August was wnl; cont synthroid vertigo - complained of such once this week; treated with meclizine x 1; no complaints of this since then vaginitis - probably candidal - clotrimazole vag insert HS x 3 days she c/o RLE pain (chronic, due to prior fracture s/p ORIF) - given oxyIR on 2.5mg x1 on 10/20 dispo - home with HH cleared by PT, OT for home with who provides 21/10 care Now that her ammonia level is trending back down with dose adjustment of her Lactulose, will plan to discharge home on that strength and frequency. Advise close f/u with her pcp and other specialists. She is medically stable for discharge home today. Plan d/w Dr. Faulkner who has also seen and evaluated this patient and agrees with aforementioned. Total Time Total Time Spent Total Time Spent (In Minutes): >30 minutes Discharge Plan Discharge Items Patient Disposition: Home - Home Health Services Reason For Visit: CONSTIPATION Discharge Diagnosis: elevated ammonia level urinary tract infection Activity: Resume your previous activity Non-emergency contact: Primary Care Provider Call non-emergency contact if: you have any medication questions and your symptoms worsen Follow-up/Referrals: Geri Mcgraw PA-C [Primary Care Provider] - 10/30/21 2:10 pm (Appointment will be at [address] [place] [address],[place] [id number]) Diet: Carb Consistent or DM2 Addtl Attending Provider Instructions: You were hospitalized with a urinary tract infection which was resistant to multiple medications therefore requiring a course of IV antibiotics. You were also noted to have a low magnesium for which you were started on a medication called Amiloride. Please take this every day. A prescription has been sent to your preferred pharmacy. You were also noted to have an elevated ammonia level during your stay. Therefore, your Lactulose was increased from three times per day to four times per day. Please take this medication as prescribed. Do not stop, alter, or skip doses without instruction from a medical provider. Failure to take this medication as directed will result in an elevated ammonia level and repeat hospitalization. You have also been started on some medication to help with stomach acid. While you are already taking Omeprazole, you have also been started on Pepcid. You will need to take this medication at night before bed. A prescription for this has been sent to your pharmacy. It is recommended that you follow up with your family doctor within 1 week of discharge. Keep all scheduled follow ups with your specialists. If you have any questions after your discharge, please contact the nonemergency number listed on your discharge paperwork. In the event of a medical emergency, call 911. Pending Studies at Discharge: No Stand-Alone Forms: My [facility] [employer], Smoking Cessation Medications and DC Order Prescriptions: New famotidine 20 mg Tablet 20 mg PO HS Qty: 30 0RF lactulose 20 gram/30 mL Solution 30 g PO QID Qty: 3000 0RF Rx Instructions: please dispense 5400 mL (which would equal a 30 day supply) amiloride 5 mg Tablet 5 mg PO DAILY Qty: 30 0RF Continued albuterol sulfate 90 mcg/actuation HFA aerosol inhaler 2 puff inhalation Q4H PRN (Reason: shortness of breath) Qty: 1 3RF omeprazole 40 mg capsule,delayed release(DR/EC) 40 mg PO QAM Qty: 90 1RF ropinirole 0.25 mg tablet 0.25 mg PO BID 90 Days Qty: 180 1RF (DME) pen needle, diabetic [BD Ultra-Fine Sheridan Pen Needle] 32 gauge x 5/32" needle See Rx Instructions .Route Qty: 400 3RF Rx Instructions: use 4 x daily insulin aspart U-100 [Novolog Flexpen U-100 Insulin] 100 unit/mL (3 mL) insulin pen 15 - 25 unit SQ TID MDD 60 units Qty: 30 5RF Rx Instructions: per sliding scale ipratropium-albuterol 0.5 mg-3 mg(2.5 mg base)/3 mL solution for nebulization 3 ml INH QID PRN (Reason: wheezing) Qty: 90 0RF teriparatide 20 mcg/dose (620mcg/2.48mL) pen injector 20 mcg subcut PM Qty: 7.44 0RF benztropine 1 mg tablet 1 mg PO TID 30 Days Qty: 90 5RF Xifaxan 550 mg tablet 550 mg PO BID Qty: 60 5RF topiramate 100 mg tablet 100 mg PO BID Qty: 60 5RF oxcarbazepine 300 mg tablet See Rx Instructions .ROUTE .COMPLEX Qty: 90 5RF Rx Instructions: 300 mg PO take one tablet in the morning, then take two tablets (600mg) in the evening; levothyroxine [Euthyrox] 50 mcg tablet 50 mcg PO QAM Qty: 30 2RF levetiracetam 750 mg tablet 1,500 mg PO BID 30 Days Qty: 120 5RF cholecalciferol (vitamin D3) [Vitamin D3] 25 mcg (1,000 unit) capsule 5,000 unit PO QDL Label Comments: TAKES IN AFTERNOON promethazine 25 mg tablet 25 mg PO Q8H PRN (Reason: nausea and vomiting) Qty: 10 0RF ascorbate calcium (vitamin C) 500 mg tablet 500 mg PO QDL vitamin E (dl, acetate) 180 mg (400 unit) capsule 180 mg PO Q OTHER DAY (DME) OneTouch Verio test strips Strip See Rx Instructions .Route Qty: 50 5RF Rx Instructions: Test blood sugars once a day epinephrine [EpiPen 2-Garret] 0.3 mg/0.3 mL auto-injector 0.3 mg IM Q10M PRN (Reason: Anaphylaxis) lecithin 1,200 mg capsule 1,200 mg PO QDL cranberry 400 mg capsule 400 mg PO BIDM Rx Instructions: administer with a meal multivitamin [Multiple Vitamins] Tablet 1 tab PO QDL zinc 50 mg Tablet 50 mg PO QDL vitamin A 8,000 unit Capsule 8,000 unit PO QDL vitamin B complex Tablet 1 tab PO QDL Probiotic 3 billion cell Capsule 1 mmu cells PO QDL fexofenadine 60 mg Tablet 60 mg PO QAM hydrocortisone 10 mg tablet See Rx Instructions .ROUTE .COMPLEX Rx Instructions: take 10 mg in the morning and 5 mg every evening; calcium carbonate 500 mg calcium (1,250 mg) Tablet 500 mg PO QDL Blue-Emu Cream 1 applic topical HS Nurtec ODT 75 mg tablet,disintegrating 75 mg PO .COMPLEX PRN (Reason: Migraine Headache) Rx Instructions: 1 tab po prn for severe migraines Tresiba FlexTouch U-100 100 unit/mL (3 mL) insulin pen 30 unit subcut QAM Qty: 15 1RF pravastatin 20 mg tablet 20 mg PO QAM Label Comments: this is a new medication per patients escitalopram oxalate 20 mg tablet 20 mg PO QAM melatonin 5 mg tablet 10 mg PO HS Qty: 1 0RF Rx Instructions: [id number] magnesium oxide 400 mg (241.3 mg magnesium) tablet 400 mg PO BID Qty: 0 0RF acetaminophen [Tylenol Extra Strength] 500 mg Tablet 1,000 mg PO HS Qty: 0 0RF Refresh Optive Advanced 0.5-1-0.5 % drops 2 drops OP HS Qty: 0 0RF Rx Instructions: PER PT'S , "USUALLY USES AT HS". acetaminophen [Tylenol Extra Strength] 500 mg tablet 500 mg PO BID PRN (Reason: Pain) diclofenac sodium [Voltaren Arthritis Pain] 1 % gel 4 g EXT QID PRN (Reason: Pain) Discontinued lactulose 20 gram/30 mL solution 45 ml PO TID Qty: 2880 1RF Discharge Orders: Discharge Order (Routine); Ordered 10/23/21 Ordered By: Jackeline Fernandez Admission Data Admit Date/Time: 10/14/21 01:41 Attending Provider: Davis Faulkner Admit Provider: Amalia Beatty Primary Care Provider: Geri Mcgraw Other Providers: Amalia Beatty ; Abdulkadir Torres Other Interventions: Discharge Summary Assessment (RN) Last Done: 10/23/21 14:29 Supervising Physician Co-Signing Physician Notes Patient seen and examined, chart reviewed, case discussed with Denise Fernandez PA-C and I agree with the assessment and plan as above except as otherwise noted. Patient admitted with altered mental status and pneumonia, in the setting of chronic liver disease and multiple admissions for lactulose noncompliance. Is clinically at baseline, and ammonia is now downtrending at time of discharge. At bedside visit no acute distress, seen with her at the bedside. Breathing is unlabored, oriented to name, place, and date, and in no acute pain at time of assessment. Conversation is appropriate. Agree with m anagement and discharge as above. Coding Level of Care Code D/C DAY MANAGEMENT >30 MINS Diagnoses Abdominal pain R10.9 Urinary tract infection due to ESBL Klebsiella N39.0; B96.89 Acute hepatic encephalopathy K72.00 Constipation K59.00 Hyperammonemia E72.20 Adrenal insufficiency E27.40 Diabetes mellitus E11.9 Nonalcoholic fatty liver disease K76.0 Depression F32.9 Dyslipidemia E78.5 Parkinsonism G20 Hypomagnesemia E83.42
== END 2021-10-23 15:14 | disposition home or self-care (01) ==
LOC: ED 21:38 → INTOOBSV 10-14 01:41 → SUATTDRO 10-14 01:41 → 3N 10-14 01:41
DX: E72.20 Disorder of urea cycle metabolism, unspecified; Z88.1 Allergy status to other antibiotic agents; Z79.4 Long term (current) use of insulin; Z88.8 Allergy status to other drugs, medicaments and biological substances; K72.00 Acute and subacute hepatic failure without coma; Z88.2 Allergy status to sulfonamides; B96.89 Other specified bacterial agents as the cause of diseases classified elsewhere; E27.40 Unspecified adrenocortical insufficiency; R41.0 Disorientation, unspecified; K76.0 Fatty (change of) liver, not elsewhere classified; Z88.5 Allergy status to narcotic agent; R10.9 Unspecified abdominal pain; Z79.899 Other long term (current) drug therapy; E11.9 Type 2 diabetes mellitus without complications; N39.0 Urinary tract infection, site not specified; G20 Parkinson's disease; K74.60 Unspecified cirrhosis of liver; K59.00 Constipation, unspecified

== ENCOUNTER 2021-11-09 19:22 | Observation (INO) ==
[2021-11-09] MEDS ORDERED: PROMETHAZINE 12.5 MG/50.5 ML BAG IV STA (20:01)
[2021-11-09] MEDS ORDERED: SODIUM CHLORIDE 0.9% 500 ML IV STA (20:01)
[2021-11-09] MEDS ORDERED: ONDANSETRON INJ 2 MG/ML 2 ML VIAL IV STA (20:01)
[2021-11-09] MEDS ORDERED: ACETAMINOPHEN 1000 MG/100 ML IV IV STA (20:04)
--- NOTE | 2021-11-09 20:07 | Emergency Department Note ---
Impression & Plan Diffuse abdominal pain, Hyperammonemia, UTI (urinary tract infection), Constipation ED Provider Note NAME: CHRISTO SAN AGE: 55 SEX: F : 1965 ARRIVES VIA: Walk-In INFORMANT: [Patient][] ED PROVIDER(S): [Aiden Nelson MD] CHIEF COMPLAINT: Possible constipation, abdominal pain HISTORY OF PRESENT ILLNESS: Patient is a 55-year-old female who complains of diffuse abdominal pain, bloating, no bowel movement all day. She has taken 3 doses of lactulose and has not had a bowel movement. She uses lactulose because of ongoing issues with her liver. There has been no fever, she does have nausea but there has been no vomiting. She was able to take her regular meds today and did eat today. There has been some decreased urinary output, no urinary burning. No shortness of breath, no cough. Of note, the patient was discharged from this hospital on 10/23. She was in for encephalopathy, an ESBL UTI, constipation REVIEW OF SYSTEMS: See HPI for pertinent positives and negatives. A total of ten systems were reviewed and were otherwise negative. PMHx/PSHx: See Below SOCIAL HISTORY: See Below. PHYSICAL EXAM: GENERAL: Patient is in no acute distress. HEENT: No acute trauma, normocephalic atraumatic, mucous membranes moist, no nasal congestion, no scleral icterus. NECK: No stridor, no adenopathy, no meningismus, trachea is midline. LUNGS: Clear to auscultation bilaterally, no wheeze, no rhonchi, breath sounds equal. HEART: Subtle systolic murmur, regular rate and rhythm. ABDOMEN: Soft, mildly diffusely tender, bowel sounds positive, no peritonitis. Abdominal distention noted. EXTREMITIES: No cyanosis, mild bilateral pedal edema, full range of motion of all the joints without pain or difficulty, no signs for acute trauma. NEUROLOGIC: Oriented x 3, no acute motor or sensory deficits, no focal weakness. Constant movement of her head and upper torso. SKIN: No rash, no jaundice, no diaphoresis. DIFFERENTIAL DIAGNOSIS: Constipation, bowel obstruction, hyperammonemia, dehydration, renal or liver failure, UTI, urinary retention, hydronephrosis, diverticulitis, colitis, among others. EMERGENCY DEPARTMENT COURSE/PROCEDURES: MEDICAL DECISION MAKING: There is no leukocytosis. A very mild anemia was noted. Platelet count was low but this is baseline when looking back at previous testing. No renal failure or significant electrolyte abnormality. There were some liver enzyme elevation is noted. Ammonia level was high at 79. No pancreatitis. Urinalysis does suggest infection. COVID test returned negative. Abdominal and pelvis CT does not show any bowel obstruction, some fluid levels were seen consistent with a potential diarrheal illness. Some constipation was noted distally in the colon. On exam, the patient had diffuse abdominal discomfort. She was not toxic or febrile. There was no peritonitis. Patient was given IV saline, IV Phenergan, IV Zofran. She was given IV Tylenol and IV ertapenem. The ertapenem was used as she was recently treated for an ESBL in the urine. I did order for a soapsuds enema to help with the constipation. Given the abdominal pain, given the resistant UTI, given her constipation and ongoing c hronic issues, I do think a hospital stay is needed. She will require IV antibiotic therapy for the urine infection. I did speak with the patient and case management. The on-call hospitalist was consulted. Past Med/Surg History Medical History Acute alteration in mental status Acute alteration in mental status Acute confusion Acute dehydration Acute hepatic encephalopathy Acute hepatic encephalopathy Acute hepatic encephalopathy Altered mental status Depression Diabetes mellitus Electrolyte abnormality Hyperammonemia Hyperbilirubinemia Nonalcoholic fatty liver disease Parkinsonism Sleepiness Spleen enlargement Thrombocytopenia Urinary tract infection UTI (urinary tract infection) Surgical History Femur fracture, right SPIRAL FRACTURE REPAIRED (HARDWARE REPAIRED) History of ankle surgery RT/LEFT History of appendectomy History of cholecystectomy History of colonoscopy History of esophagogastroduodenoscopy (EGD) History of kyphoplasty History of open reduction and internal fixation (ORIF) procedure RT HIP History of surgery (~06/02/20) screw/plate removal from left humerus History of surgery on arm LEFT (HARDWARE INTACT) History of tooth extraction History of vascular access device right A port Hx of carpal tunnel repair RT/LEFT Hx of cataract extraction RT/LEFT S/P laminectomy lumbar spine S/P nasal surgery nasal bone fracture repair S/P TIFFANIE-BSO (1997) Family History Other Adopted No pertinent family history Social History Smoking Status: Never smoker Tobacco Type: Cigarettes Second Hand Exposure: No; Hx Alcohol Use: No Hx Substance Use: No Preferred Language: Uzbek Communication Ability: Effective Visual Impairment: No Limitations Grocery Clerk Required: No Beliefs That Will Affect Care: None marital status: Current Living Situation: Spouse Current Living Situation Comment: Lives with current occupational status: unemployed and disabled How many Children do You have: 0 Feels Safe at Home: Yes Seatbelt Use: always Assistive Devices: Wheelchair Allergies Allergies Allergy/AdvReac Type Severity Reaction Status Date / Time metoclopramide Allergy Severe SEIZURES Verified 11/09/21 23:54 metronidazole Allergy Severe SEIZURE Verified 11/09/21 23:54 tramadol Allergy Severe SEIZURES Verified 11/09/21 23:54 amoxicillin Allergy Intermediate SEE COMMENT Verified 11/09/21 23:54 baclofen Allergy Intermediate RASH Verified 11/09/21 23:54 butalbital Allergy Intermediate HIVES Verified 11/09/21 23:54 dicyclomine Allergy Intermediate HIVES Verified 11/09/21 23:54 nitrofurantoin Allergy Intermediate HIVES/RASH/SEVERE Verified 11/09/21 23:54 [From Macrobid] ITCHING pollen extracts Allergy Intermediate Hives Verified 11/09/21 23:54 Sulfa (Sulfonamide Allergy Intermediate CAUSES Verified 11/09/21 23:54 Antibiotics) BLACK STOOLS Tetracyclines Allergy Intermediate DOXYCYCLINE Verified 11/09/21 23:54 -HIVES adhesive Allergy Mild RASH, Verified 11/09/21 23:54 DUODERM=RED,ITCHY celecoxib Allergy Mild HIVES Verified 11/09/21 23:54 sulindac Allergy Mild ALLERGY Verified 11/09/21 23:54 LISTED "CLONDORAL"--HIVES Cephalosporins AdvReac Severe TURNS Verified 11/09/21 23:54 STOOL VERY DARK paroxetine [From Paxil] AdvReac Severe Vomiting Verified 11/09/21 23:54 dextromethorphan AdvReac Mild Vomiting Verified 11/09/21 23:54 Home Meds Home Medications Medication Instructions Recorded Confirmed multivitamin (Multiple Vitamins 1 tab PO QDL 12/26/17 11/09/21 tablet) lactobacillus combination no.4 3 1 mmu cells PO QDL 09/20/18 11/09/21 billion cell capsule (Probiotic) vitamin A 2,400 mcg capsule 8,000 unit PO QDL 09/20/18 11/09/21 vitamin B complex 1 tab PO QDL 09/20/18 11/09/21 zinc 50 mg tablet 50 mg PO QDL 02/09/19 11/09/21 epinephrine 0.3 mg/0.3 mL 0.3 mg IM Q10M PRN Anaphylaxis 04/02/19 11/09/21 injection, auto-injector (EpiPen 2-Garret) lecithin 1,200 mg capsule 1,200 mg PO QDL 04/29/19 11/09/21 fexofenadine 60 mg tablet 60 mg PO QAM 04/12/20 11/09/21 cranberry 400 mg capsule 400 mg PO BIDM 06/08/20 11/09/21 ascorbate calcium (vitamin C) 500 500 mg PO QDL 11/16/20 11/09/21 mg tablet vitamin E (dl, acetate) 180 mg 180 mg PO Q OTHER DAY 11/16/20 11/09/21 (400 unit) capsule cholecalciferol (vitamin D3) 25 5,000 unit PO QDL 11/30/20 11/09/21 mcg (1,000 unit) capsule (Vitamin D3) pravastatin 20 mg tablet 20 mg PO QAM 12/05/20 11/09/21 escitalopram oxalate 20 mg tablet 20 mg PO QAM 12/29/20 11/09/21 acetaminophen 500 mg tablet 500 mg PO BID PRN Pain 06/22/21 11/09/21 (Tylenol Extra Strength) diclofenac sodium 1 % topical gel 4 g EXT QID PRN Pain 06/22/21 11/09/21 (Voltaren Arthritis Pain) Blue-Emu Cream 1 applic topical HS 07/22/21 11/09/21 calcium carbonate 500 mg calcium 500 mg PO QDL 07/22/21 11/09/21 (1,250 mg) tablet Previous Rx's Medication Instructions Recorded albuterol sulfate 90 mcg/actuation 2 puff inhalation Q4H PRN 05/31/20 aerosol inhaler shortness of breath #1 inhaler promethazine 25 mg tablet 25 mg PO Q8H PRN nausea and 10/11/20 vomiting #10 tabs levetiracetam 750 mg tablet 1,500 mg PO BID 30 days #120 tabs 10/30/20 magnesium oxide 400 mg (241.3 mg 400 mg PO BID #0 tabs 01/02/21 magnesium) tablet melatonin 5 mg tablet 10 mg PO HS #1 tab 01/02/21 ropinirole 0.25 mg tablet 0.25 mg PO BID 90 days #180 tabs 01/10/21 acetaminophen 500 mg tablet 1,000 mg PO HS #0 tabs 04/20/21 (Tylenol Extra Strength) rwiunbmufpvikdrmsefiwd-xerjfonq-gdyrgrhn 2 drops ophthalmic (eye) HS #0 mL 04/20/21 80 0.5 %-1 %-0.5 % eye drops (Refresh Optive Advanced) pen needle, diabetic 32 gauge x #400 ea 06/26/21" (BD Ultra-Fine Sheridan Pen Needle) insulin aspart U-100 100 unit/mL 15 - 25 unit (0.15 - 0.25 mL) 07/07/21 (3 mL) subcutaneous pen (Novolog subcut TID #30 mL Flexpen U-100 Insulin aspart) blood sugar diagnostic (OneTouch #50 ea 07/17/21 Verio test strips) ipratropium 0.5 mg-albuterol 3 mg 3 ml inhalation QID PRN wheezing 07/19/21 (2.5 mg base)/3 mL nebulization #90 mL soln benztropine 1 mg tablet 1 mg PO TID 30 days #90 tabs 07/20/21 teriparatide 20 mcg/dose (620 20 mcg (0.08 mL) subcut PM #7.44 mL 07/20/21 mcg/2.48 mL) subcutaneous pen injector rifaximin 550 mg tablet (Xifaxan) 550 mg PO BID hepatic 07/26/21 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 #60 tabs oxcarbazepine 300 mg tablet See Rx Instructions .Route 08/14/21 .COMPLEX #90 tabs topiramate 100 mg tablet 100 mg PO BID #60 tabs 08/14/21 levothyroxine 50 mcg tablet 50 mcg PO QAM #30 tabs 09/12/21 (Euthyrox) amiloride 5 mg tablet 5 mg PO DAILY #30 tabs 10/23/21 famotidine 20 mg tablet 20 mg PO HS #30 tabs 10/23/21 insulin degludec 100 unit/mL (3 30 unit (0.3 mL) subcut QAM #15 mL 10/23/21 mL) subcutaneous pen (Tresiba FlexTouch U-100 insulin) lactulose 20 gram/30 mL oral 30 g (45 mL) PO QID #3,000 mL 10/23/21 solution atogepant 30 mg tablet (Qulipta) 30 mg PO DAILY #30 tabs 11/02/21 omeprazole 40 mg capsule,delayed 40 mg PO QAM #90 caps 11/05/21 release hydrocortisone 10 mg tablet See Rx Instructions .Route 11/07/21 .COMPLEX #45 tabs Results & Data (ED) Vital Signs Vital Signs - 24 hr 11/09/21 19:25 11/09/21 20:16 11/09/21 20:30 Temperature 36.4 C L Temperature Source Temporal Artery Scan Pulse Rate 76 69 72 Pulse Rate from SpO2 Sensor 69 67 Pulse Rhythm Regular Pulse Strength Normal Respiratory Rate 18 24 21 Respiratory Effort / Characteristics Non-Labored Spontaneous Respiratory Depth Normal Respiratory Pattern Regular Blood Pressure 135/76 Blood Pressure Mean 95 Blood Pressure Position Sitting Pulse Oximetry 97 98 96 Oxygen Delivery Method Room Air Sepsis Recent Fever Within 48 Hours No Sepsis New/Unexplained Change in Mental Status N/A Sepsis Action Taken by Nursing No Action Required 11/09/21 21:00 11/09/21 21:30 11/09/21 23:30 Temperature Temperature Source Pulse Rate 66 69 75 Pulse Rate from SpO2 Sensor 66 69 69 Pulse Rhythm Pulse Strength Respiratory Rate 27 H 24 16 Respiratory Effort / Characteristics Respiratory Depth Respiratory Pattern Blood Pressure 135/116 H 147/67 H 117/85 Blood Pressure Mean 122 93 95 Blood Pressure Position Pulse Oximetry 99 93 97 Oxygen Delivery Method Sepsis Recent Fever Within 48 Hours Sepsis New/Unexplained Change in Mental Status Sepsis Action Taken by [facility] Medications Current Medication List: was personally reviewed by me Laboratory Data Attestation: I reviewed the patient's lab results. Result diagrams: 11/09/21 20:35 11/09/21 20:35 Lab Results 11/09/21 11/09/21 11/09/21 Range/Units 20:35 20:35 20:35 WBC 5.53 (4.8-10.8) K/ul RBC 3.12 L (3.93-5.22) M/uL Hgb 11.2 L (12.0-16.0) g/dl Hct 31.7 L (34.1-44.9) % MCV 101.6 H (80.0-100.0) fL MCH 35.9 H (25.0-34.0) pg MCHC 35.3 (32.0-36.0) g/dL RDW Std Deviation 47.9 H (36.4-46.3) fL RDW Coeff of Irina 13.2 (11.5-14.5) % Plt Count 102 L (130-400) K/uL MPV 10.4 (9.4-12.3) fL Immature Gran % (Auto) 0.4 % Neut % (Auto) 63.6 % Lymph % (Auto) 21.9 % [place] % (Auto) 10.3 % Eos % (Auto) 2.9 % Baso % (Auto) 0.9 % Neut # (Auto) 3.52 (1.4-6.5) K/uL Lymph # (Auto) 1.21 (1.2-3.4) K/uL [place] # (Auto) 0.57 (0.24-0.82) K/uL Eos # (Auto) 0.16 (0-0.50) K/uL Baso # (Auto) 0.05 (0-0.2) K/uL Immature Gran # (Auto) 0.02 (0.00-0.02) K/uL Sodium 136 (136-145) mmol/L Potassium 3.4 L (3.5-5.1) mmol/L Chloride 109 H (98-107) mmol/L Carbon Dioxide 21 (21-32) mmol/L Anion Gap 6 (3-11) BUN 11 (6-23) mg/dl Creatinine 0.75 (0.6-1.2) mg/dl Est Cr Clr Drug Dosing Not Reportable Est GFR ( Amer) 104.0 ml/min Est GFR (Non-Af Amer) 89.7 ml/min BUN/Creatinine Ratio 14.7 (10-20) Glucose 96 (70-99(Fasting)) mg/dl Calcium 7.9 L (8.5-10.1) mg/dl Magnesium 1.7 (1.7-2.4) mg/dl Total Bilirubin 1.5 H (0.2-1.0) mg/dl AST 28 (13-39) U/L ALT 33 (7-52) U/L Alkaline Phosphatase 128 H (34-104) U/L Ammonia 79.0 H (18-72) umol/L Total Protein 5.5 L (6.0-8.3) gm/dl Albumin 3.1 L (3.4-5.0) gm/dl Globulin 2.4 L (2.5-4.0) gm/dl Albumin/Globulin Ratio 1.3 (0.9-2) Lipase 25 (11-82) U/L Urine Color Urine Appearance (Clear) Urine pH (4.5-7.5) Ur Specific Sayre (1.000-1.030) Urine Protein (Negative) Urine Glucose (UA) (Negative) Urine Ketones (Negative) Urine Blood (Negative) Urine Nitrite (Negative) Urine Bilirubin (Negative) Urine Urobilinogen (Negative) Ur Leukocyte Esterase (Negative) Urine WBC (Auto) (0-5) /hpf Urine RBC (Auto) (0-4) /hpf U Hyaline Cast (Auto) (0-5) /lpf U Epithel Cells (Auto) (0-5) /lpf Urine Bacteria (Auto) (Negative) SARS-CoV-2, RNA, NAAT (NEGATIVE) 11/09/21 11/09/21 Range/Units 20:35 21:15 WBC (4.8-10.8) K/ul RBC (3.93-5.22) M/uL Hgb (12.0-16.0) g/dl Hct (34.1-44.9) % MCV (80.0-100.0) fL MCH (25.0-34.0) pg MCHC (32.0-36.0) g/dL RDW Std Deviation (36.4-46.3) fL RDW Coeff of Irina (11.5-14.5) % Plt Count (130-400) K/uL MPV (9.4-12.3) fL Immature Gran % (Auto) % Neut % (Auto) % Lymph % (Auto) % [place] % (Auto) % Eos % (Auto) % Baso % (Auto) % Neut # (Auto) (1.4-6.5) K/uL Lymph # (Auto) (1.2-3.4) K/uL [place] # (Auto) (0.24-0.82) K/uL Eos # (Auto) (0-0.50) K/uL Baso # (Auto) (0-0.2) K/uL Immature Gran # (Auto) (0.00-0.02) K/uL Sodium (136-145) mmol/L Potassium (3.5-5.1) mmol/L Chloride (98-107) mmol/L Carbon Dioxide (21-32) mmol/L Anion Gap (3-11) BUN (6-23) mg/dl Creatinine (0.6-1.2) mg/dl Est Cr Clr Drug Dosing Est GFR ( Amer) ml/min Est GFR (Non-Af Amer) ml/min BUN/Creatinine Ratio (10-20) Glucose (70-99(Fasting)) mg/dl Calcium (8.5-10.1) mg/dl Magnesium (1.7-2.4) mg/dl Total Bilirubin (0.2-1.0) mg/dl AST (13-39) U/L ALT (7-52) U/L Alkaline Phosphatase (34-104) U/L Ammonia (18-72) umol/L Total Protein (6.0-8.3) gm/dl Albumin (3.4-5.0) gm/dl Globulin (2.5-4.0) gm/dl Albumin/Globulin Ratio (0.9-2) Lipase (11-82) U/L Urine Color Yellow Urine Appearance Cloudy A (Clear) Urine pH 6.0 (4.5-7.5) Ur Specific [place]re 1.015 (1.000-1.030) Urine Protein Negative (Negative) Urine Glucose (UA) Negative (Negative) Urine Ketones Negative (Negative) Urine Blood Negative (Negative) Urine Nitrite Negative (Negative) Urine Bilirubin Negative (Negative) Urine Urobilinogen Negative (Negative) Ur Leukocyte Esterase 2+ H (Negative) Urine WBC (Auto) >30 H (0-5) /hpf Urine RBC (Auto) 0-4 (0-4) /hpf U Hyaline Cast (Auto) 1-5 (0-5) /lpf U Epithel Cells (Auto) 5-10 H (0-5) /lpf Urine Bacteria (Auto) 4+ H (Negative) SARS-CoV-2, RNA, NAAT NEGATIVE (NEGATIVE) Administered Medications Discontinued Medications Acetaminophen (Acetaminophen 1000 Mg/100 Ml Iv) 1,000 mg IV NOW STA Stop: 11/09/21 20:05 Last Admin: 11/09/21 20:43 Dose: 1,000 mg Documented By: GREGORY Sodium Chloride (Nss) 500 mls @ 999 mls/hr IV .Q31M STA Stop: 11/09/21 20:31 Last Infusion: 11/09/21 21:25 Dose: 0 mls/hr Documented By: Admin: 11/09/21 20:43 Dose: 999 mls/hr Documented By: GREGORY Promethazine HCl (Phenergan) 12.5 mg in 50.5 mls @ 202 mls/hr IV NOW STA Stop: 11/09/21 20:15 Last Infusion: 11/09/21 21:25 Dose: 0 mls/hr Documented By: Admin: 11/09/21 20:44 Dose: 202 mls/hr Documented By: GREGORY Ertapenem (Invanz) 10 mls @ 2 mls/min IV NOW STA Stop: 11/09/21 22:49 Last Admin: 11/09/21 23:33 Dose: 2 mls/min Documented By: GREGORY Ioversol (Optiray 300 100ml) 85 ml IV ONCE ONE Stop: 11/09/21 21:58 Last Admin: 11/09/21 21:58 Dose: 85 ml Documented By: PATRIA Ondansetron HCl (Ondansetron Inj 2 Mg/Ml 2 Ml Vial) 4 mg IV NOW STA Stop: 11/09/21 20:02 Last Admin: 11/09/21 20:43 Dose: 4 mg Documented By: GREGORY Imaging Data Radiologist's Impression: Abdomen/Pelvis CT 11/09/21 20:01 CT abd pelvis IV con only CLINICAL HISTORY: lower abd pain, distention TECHNIQUE: Helical axial images of the abdomen and pelvis were obtained and di splayed. Automated dose lowering techniques and/or adjustment according to patient size were utilized for this exam. This exam was performed with intravenous contrast. CT DOSE: 1197.14 mGy.cm COMPARISON: Comparison is made to CT abdomen pelvis 10/18/2021 FINDINGS: Lower chest: Vague Liver: Unremarkable. No focal lesions are seen. Gallbladder and biliary tree: Patient is status post cholecystectomy. No intra- or extrahepatic biliary ductal dilation. Pancreas: Unremarkable, no focal lesions. Spleen: Unremarkable. Adrenals: Unremarkable. Kidneys and ureters: Nonobstructive nephrolithiasis is seen. Bladder: Unremarkable. Reproductive organs: Unremarkable. Bowel: Prominent liquid contents are noted in the descending and transverse colon. No evidence of bowel obstruction is seen. Lymph nodes Retroperitoneal: Unremarkable. Pelvic: Unremarkable. Mesenteric: Unremarkable. Peritoneum: Normal. Vessels: Unremarkable. Abdominal wall: Unremarkable. Bones: Degenerative changes in the visualized spine. Anterior wedge deformity of L1 is unchanged. IMPRESSION: Prominent liquid contents in the proximal colon. No evidence of obstruction. ACT 112: Negative or not required by law. Electronically signed by: Serjio Campbell M.D. 11/09/2021 10:27 PM Discharge Plan Visit Data Chief Complaint: Constipation Stated Complaint: UNABLE TO VOID ED Provider: Aiden Nelson Discharge Problem: Diffuse abdominal pain, Hyperammonemia, UTI (urinary tract infection), Constipation Patient Disposition: Admitted As Inpatient Condition: Fair Forms Stand Alone Forms: [facility] Prescriptions Prescriptions: No Action albuterol sulfate 90 mcg/actuation HFA aerosol inhaler 2 puff inhalation Q4H PRN (Reason: shortness of breath) Qty: 1 3RF ropinirole 0.25 mg tablet 0.25 mg PO BID 90 Days Qty: 180 1RF (DME) pen needle, diabetic [BD Ultra-Fine Sheridan Pen Needle] 32 gauge x 5/32" needle See Rx Instructions .Route Qty: 400 3RF Rx Instructions: use 4 x daily insulin aspart U-100 [Novolog Flexpen U-100 Insulin] 100 unit/mL (3 mL) insulin pen 15 - 25 unit SQ TID MDD 60 units Qty: 30 5RF Rx Instructions: per sliding scale ipratropium-albuterol 0.5 mg-3 mg(2.5 mg base)/3 mL solution for nebulization 3 ml INH QID PRN (Reason: wheezing) Qty: 90 0RF teriparatide 20 mcg/dose (620mcg/2.48mL) pen injector 20 mcg subcut PM Qty: 7.44 0RF benztropine 1 mg tablet 1 mg PO TID 30 Days Qty: 90 5RF Xifaxan 550 mg tablet 550 mg PO BID Qty: 60 5RF topiramate 100 mg tablet 100 mg PO BID Qty: 60 5RF oxcarbazepine 300 mg tablet See Rx Instructions .ROUTE .COMPLEX Qty: 90 5RF Rx Instructions: 300 mg PO take one tablet in the morning, then take two tablets (600mg) in the evening; levothyroxine [Euthyrox] 50 mcg tablet 50 mcg PO QAM Qty: 30 2RF Qulipta 30 mg tablet 30 mg PO DAILY Qty: 30 2RF omeprazole 40 mg capsule,delayed release(DR/EC) 40 mg PO QAM Qty: 90 1RF hydrocortisone 10 mg tablet See Rx Instructions .ROUTE .COMPLEX Qty: 45 3RF Rx Instructions: take 10 mg in the morning and 5 mg every evening; levetiracetam 750 mg tablet 1,500 mg PO BID 30 Days Qty: 120 5RF cholecalciferol (vitamin D3) [Vitamin D3] 25 mcg (1,000 unit) capsule 5,000 unit PO QDL Label Comments: TAKES IN AFTERNOON promethazine 25 mg tablet 25 mg PO Q8H PRN (Reason: nausea and vomiting) Qty: 10 0RF ascorbate calcium (vitamin C) 500 mg tablet 500 mg PO QDL vitamin E (dl, acetate) 180 mg (400 unit) capsule 180 mg PO Q OTHER DAY (DME) OneTouch Verio test strips Strip See Rx Instructions .Route Qty: 50 5RF Rx Instructions: Test blood sugars once a day epinephrine [EpiPen 2-Garret] 0.3 mg/0.3 mL auto-injector 0.3 mg IM Q10M PRN (Reason: Anaphylaxis) lecithin 1,200 mg capsule 1,200 mg PO QDL cranberry 400 mg capsule 400 mg PO BIDM Rx Instructions: administer with a meal multivitamin [Multiple Vitamins] Tablet 1 tab PO QDL zinc 50 mg Tablet 50 mg PO QDL vitamin A 8,000 unit Capsule 8,000 unit PO QDL vitamin B complex Tablet 1 tab PO QDL Probiotic 3 billion cell Capsule 1 mmu cells PO QDL fexofenadine 60 mg Tablet 60 mg PO QAM calcium carbonate 500 mg calcium (1,250 mg) Tablet 500 mg PO QDL Blue-Emu Cream 1 applic topical HS famotidine 20 mg Tablet 20 mg PO HS Qty: 30 0RF lactulose 20 gram/30 mL Solution 30 g PO QID Qty: 3000 0RF Rx Instructions: please dispense 5400 mL (which would equal a 30 day supply) amiloride 5 mg Tablet 5 mg PO DAILY Qty: 30 0RF Tresiba FlexTouch U-100 100 unit/mL (3 mL) insulin pen 30 unit subcut QAM Qty: 15 1RF pravastatin 20 mg tablet 20 mg PO QAM Label Comments: this is a new medication per patients escitalopram oxalate 20 mg tablet 20 mg PO QAM melatonin 5 mg tablet 10 mg PO HS Qty: 1 0RF Rx Instructions: [id number] magnesium oxide 400 mg (241.3 mg magnesium) tablet 400 mg PO BID Qty: 0 0RF acetaminophen [Tylenol Extra Strength] 500 mg Tablet 1,000 mg PO HS Qty: 0 0RF Refresh Optive Advanced 0.5-1-0.5 % drops 2 drops OP HS Qty: 0 0RF Rx Instructions: PER PT'S , "USUALLY USES AT HS". acetaminophen [Tylenol Extra Strength] 500 mg tablet 500 mg PO BID PRN (Reason: Pain) diclofenac sodium [Voltaren Arthritis Pain] 1 % gel 4 g EXT QID PRN (Reason: Pain) Referrals Referrals: Geri Mcgraw PA-C [Primary Care Provider] -
[2021-11-09 20:59] LABS: Basophils # (auto) 0.05 K/uL (0-0.2); Basophils % (auto) 0.9 %; Eosinophils # (auto) 0.16 K/uL (0-0.50); Eosinophils % (auto) 2.9 %; Hematocrit (blood only) 31.7 % (34.1-44.9); Hemoglobin 11.2 g/dl (12.0-16.0); Immature Granulocytes # (auto) 0.02 K/uL (0.00-0.02); Immature Granulocytes % (auto) 0.4 %; Lymphocytes # (auto) 1.21 K/uL (1.2-3.4); Lymphocytes % (auto) 21.9 %; Mean Corpuscular Hemoglobin 35.9 pg (25.0-34.0); Mean Corpuscular Hgb Conc 35.3 g/dL (32.0-36.0); Mean Corpuscular Volume 101.6 fL (80.0-100.0); Mean Platelet Volume 10.4 fL (9.4-12.3); Monocytes # (auto) 0.57 K/uL (0.24-0.82); Monocytes % (auto) 10.3 %; Neutrophils # (auto) 3.52 K/uL (1.4-6.5); Neutrophils % (auto) 63.6 %; Platelet Count 102 K/uL (130-400); RDW Coefficient of Variation 13.2 % (11.5-14.5); RDW Standard Deviation 47.9 fL (36.4-46.3); Red Blood Count 3.12 M/uL (3.93-5.22); White Blood Count 5.53 K/ul (4.8-10.8)
[2021-11-09 21:16] LABS: Alanine Aminotransferase 33 U/L (7-52); Albumin Globulin Ratio 1.3 (0.9-2); Albumin Level 3.1 gm/dl (3.4-5.0); Alkaline Phosphatase 128 U/L (34-104); Anion Gap 6 (3-11); Aspartate Aminotransferase 28 U/L (13-39); BUN Creatinine Ratio 14.7 (10-20); Bilirubin,Total 1.5 mg/dl (0.2-1.0); Blood Urea Nitrogen 11 mg/dl (6-23); Calcium 7.9 mg/dl (8.5-10.1); Carbon Dioxide 21 mmol/L (21-32); Chloride 109 mmol/L (98-107); Est GFR (Non-African American) 89.7 ml/min; Globulin 2.4 gm/dl (2.5-4.0); Glucose 96 mg/dl (70-99(Fasting)); Lipase 25 U/L (11-82); Magnesium 1.7 mg/dl (1.7-2.4); Potassium 3.4 mmol/L (3.5-5.1); Sodium 136 mmol/L (136-145); Total Protein 5.5 gm/dl (6.0-8.3)
[2021-11-09] MEDS ORDERED: OPTIRAY 300 100mL IV ONE (21:57)
--- NOTE | 2021-11-09 22:29 | CT Scan Report ---
CT abd pelvis IV con only CLINICAL HISTORY: lower abd pain, distention TECHNIQUE: Helical axial images of the abdomen and pelvis were obtained and displayed. Automated dose lowering techniques and/or adjustment according to patient size were utilized for this exam. This e xam was performed with intravenous contrast. CT DOSE: 1197.14 mGy.cm COMPARISON: Comparison is made to CT abdomen pelvis 10/18/2021 FINDINGS: Lower chest: Vague Liver: Unremarkable. No focal lesions are seen. Gallbladder and biliary tree: Patient is status post cholecystectomy. No intra- or extrahepatic bilia ry ductal dilation. Pancreas: Unremarkable, no focal lesions. Spleen: Unremarkable. Adrenals: Unremarkable. Kidneys and ureters: Nonobstructive nephrolithiasis is seen. Bladder: Unremarkable. Reproductive organs: Unremarkable. Bowel: Prominent liquid contents are noted in the descending and transverse colon. No evidence of bow el obstruction is seen. Lymph nodes Retroperitoneal: Unremarkable. Pelvic: Unremarkable. Mesenteric: Unremarkable. Peritoneum: Normal. Vessels: Unremarkable. Abdominal wall: Unremarkable. Bones: Degenerative changes in the visualized spine. Anterior wedge deformity of L1 is unchanged. IMPRESSION: Prominent liquid contents in the proximal colon. No evidence of obstruction. ACT 112: Negative or not required by law. Electronically signed by: Serjio Campbell M.D. 11/09/2021 10:27 PM
[2021-11-09 22:36] LABS: Appearance Urine Cloudy (Clear); Bacteria Urine Automated 4+ (Negative); Bilirubin Urine Negative (Negative); Blood Urine Negative (Negative); Color Urine Yellow; Glucose Urine UA Negative (Negative); Ketones Urine Negative (Negative); Leukocyte Esterase Urine 2+ (Negative); Nitrite Urine Negative (Negative); Protein Urine Negative (Negative); RBC Urine Automated 0-4 /hpf (0-4); Specific Gravity Urine 1.015 (1.000-1.030); Urobilinogen Urine Negative (Negative); WBC Urine Automated >30 /hpf (0-5)
[2021-11-09] MEDS ORDERED: ERTAPENEM SODIUM 10 ML IV STA (22:45)
--- NOTE | 2021-11-09 23:48 | History & Physical Report ---
Date of Service November 09, 2021 Assessment & Plan (1) UTI (urinary tract infection): Plan: Uncomplicated UTI. History of ESBL klebsiella UTI. Urine in ER appears to be infected. Patient afebrile, HD stable and non-toxic in appearance. She was previously treated with Meropenem --> Ertapenem and completed a 7 day course as of 10/22/21 -Follow culture -Isolation precautions -Ertapenem (2) Constipation: Plan: No BM x 2 days -Enema administered in ER -Continue Dulcolax, Miralax PRN -Lactulose TID -Enema PRN (3) Hyperammonemia: Plan: Elevated ammonia level in patient with NAFLD and cirrhosis. Patient is awake, alert and able to answer questions. Does not appear to be encephalopathic at this time. -Continue Lactulose -Continue Rifaximin (4) Adrenal insufficiency: Plan: Suspected diagnosis.She was given stress dosed steroids during her last admissi on. Blood pressure stable at present. -Continue home hydrocortisone -Endocrinology followup recommended for repeat testing (5) Diabetes mellitus: Plan: Chronic. A1c was 5.2% in 08/2021. Patient follows with [facility] - last seen on 11/04/21 -Continue Degludec. Will decreased to 20u daily -ISS -Continue Phenergan for diabetic gastroparesis (6) Nonalcoholic fatty liver disease: Plan: With cirrhosis. Appears to be compensated. Labs are near baseline. EGD in 2020 without esophageal varices. -Avoid hepatotoxic agents -Continue Lactulose -Continue Amiloride (7) Depression: Plan: Chronic. Patient recently changed to Sertraline -Continue Sertraline 50 mg daily (8) Dyslipidemia: Plan: Chronic -Continue Pravastatin (9) Parkinsonism: Plan: Chronic. Secondary to her seizure and other psychiatric medications. -Continue topiramte, ropinirole, ocarbazepine, Keppra and Benztropine History of Present Illness Chief Complaint: constipation, unable to void Primary Care Provider: MACO Nelson Arpit is a 55yo female well known to the medical service presenting with constipation, abdominal pain, inability to void. Recently admitted for ESBL Klebsiella UTI Reports abdominal pain x 1 day, lower, crampy, severe. Last BM 2 days ago. She has been taking her medications as prescribed including lactulose. Allergies Allergy/AdvReac Type Severity Reaction Status Date / Time metoclopramide Allergy Severe SEIZURES Verified 11/09/21 23:54 metronidazole Allergy Severe SEIZURE Verified 11/09/21 23:54 tramadol Allergy Severe SEIZURES Verified 11/09/21 23:54 amoxicillin Allergy Intermediate SEE COMMENT Verified 11/09/21 23:54 baclofen Allergy Intermediate RASH Verified 11/09/21 23:54 butalbital Allergy Intermediate HIVES Verified 11/09/21 23:54 dicyclomine Allergy Intermediate HIVES Verified 11/09/21 23:54 nitrofurantoin Allergy Intermediate HIVES/RASH/SEVERE Verified 11/09/21 23:54 [From Macrobid] ITCHING pollen extracts Allergy Intermediate Hives Verified 11/09/21 23:54 Sulfa (Sulfonamide Allergy Intermediate CAUSES Verified 11/09/21 23:54 Antibiotics) BLACK STOOLS Tetracyclines Allergy Intermediate DOXYCYCLINE Verified 11/09/21 23:54 -HIVES adhesive Allergy Mild RASH, Verified 11/09/21 23:54 DUODERM=RED,ITCHY celecoxib Allergy Mild HIVES Verified 11/09/21 23:54 sulindac Allergy Mild ALLERGY Verified 11/09/21 23:54 LISTED "CLONDORAL"--HIVES Cephalosporins AdvReac Severe TURNS Verified 11/09/21 23:54 STOOL VERY DARK paroxetine [From Paxil] AdvReac Severe Vomiting Verified 11/09/21 23:54 dextromethorphan AdvReac Mild Vomiting Verified 11/09/21 23:54 Home Medications Medication Instructions Recorded Confirmed Type multivitamin (Multiple Vitamins 1 tab PO QDL 12/26/17 11/09/21 History tablet) lactobacillus combination no.4 3 1 mmu cells PO QDL 09/20/18 11/09/21 History billion cell capsule (Probiotic) vitamin A 2,400 mcg capsule 8,000 unit PO QDL 09/20/18 11/09/21 History vitamin B complex 1 tab PO QDL 09/20/18 11/09/21 History zinc 50 mg tablet 50 mg PO QDL 02/09/19 11/09/21 History epinephrine 0.3 mg/0.3 mL 0.3 mg IM Q10M PRN Anaphylaxis 04/02/19 11/09/21 History injection, auto-injector (EpiPen 2-Garret) lecithin 1,200 mg capsule 1,200 mg PO QDL 04/29/19 11/09/21 History fexofenadine 60 mg tablet 60 mg PO QAM 04/12/20 11/09/21 History albuterol sulfate 90 mcg/actuation 2 puff inhalation Q4H PRN 05/31/20 11/09/21 Rx aerosol inhaler shortness of breath #1 inhaler cranberry 400 mg capsule 400 mg PO BIDM 06/08/20 11/09/21 History promethazine 25 mg tablet 25 mg PO Q8H PRN nausea and 10/11/20 11/09/21 Rx vomiting #10 tabs levetiracetam 750 mg tablet 1,500 mg PO BID 30 days #120 tabs 10/30/20 11/09/21 Rx ascorbate calcium (vitamin C) 500 500 mg PO QDL 11/16/20 11/09/21 History mg tablet vitamin E (dl, acetate) 180 mg 180 mg PO Q OTHER DAY 11/16/20 11/09/21 History (400 unit) capsule cholecalciferol (vitamin D3) 25 5,000 unit PO QDL 11/30/20 11/09/21 History mcg (1,000 unit) capsule (Vitamin D3) pravastatin 20 mg tablet 20 mg PO QAM 12/05/20 11/09/21 History magnesium oxide 400 mg (241.3 mg 400 mg PO BID #0 tabs 01/02/21 11/09/21 Rx magnesium) tablet melatonin 5 mg tablet 10 mg PO HS #1 tab 01/02/21 11/09/21 Rx ropinirole 0.25 mg tablet 0.25 mg PO BID 90 days #180 tabs 01/10/21 11/09/21 Rx acetaminophen 500 mg tablet 1,000 mg PO HS #0 tabs 04/20/21 11/09/21 Rx (Tylenol Extra Strength) acetaminophen 500 mg tablet 500 mg PO BID PRN Pain 06/22/21 11/09/21 History (Tylenol Extra Strength) diclofenac sodium 1 % topical gel 4 g EXT QID PRN Pain 06/22/21 11/09/21 History (Voltaren Arthritis Pain) pen needle, diabetic 32 gauge x #400 ea 06/26/21 11/09/21 Rx 532" (BD Ultra-Fine [place] Pen Needle) insulin aspart U-100 100 unit/mL 15 - 25 unit (0.15 - 0.25 mL) 07/07/21 11/09/21 Rx (3 mL) subcutaneous pen (Novolog subcut TID #30 mL Flexpen U-100 Insulin aspart) blood sugar diagnostic (OneTouch #50 ea 07/17/21 11/09/21 Rx Verio test strips) ipratropium 0.5 mg-albuterol 3 mg 3 ml inhalation QID PRN wheezing 07/19/21 11/09/21 Rx (2.5 mg base)/3 mL nebulization #90 mL soln benztropine 1 mg tablet 1 mg PO TID 30 days #90 tabs 07/20/21 11/09/21 Rx teriparatide 20 mcg/dose (620 20 mcg (0.08 mL) subcut PM #7.44 mL 07/20/21 11/09/21 Rx mcg/2.48 mL) subcutaneous pen injector Blue-Emu Cream 1 applic topical HS 07/22/21 11/09/21 History calcium carbonate 500 mg calcium 500 mg PO QDL 07/22/21 11/09/21 History (1,250 mg) tablet rifaximin 550 mg tablet (Xifaxan) 550 mg PO BID hepatic 07/26/21 11/09/21 Rx 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 #60 tabs oxcarbazepine 300 mg tablet See Rx Instructions .Route 08/14/21 11/09/21 Rx .COMPLEX #90 tabs topiramate 100 mg tablet 100 mg PO BID #60 tabs 08/14/21 11/09/21 Rx levothyroxine 50 mcg tablet 50 mcg PO QAM #30 tabs 09/12/21 11/09/21 Rx (Euthyrox) amiloride 5 mg tablet 5 mg PO DAILY #30 tabs 10/23/21 11/09/21 Rx famotidine 20 mg tablet 20 mg PO HS #30 tabs 10/23/21 11/09/21 Rx insulin degludec 100 unit/mL (3 30 unit (0.3 mL) subcut QAM #15 mL 10/23/21 11/09/21 Rx mL) subcutaneous pen (Tresiba FlexTouch U-100 insulin) lactulose 20 gram/30 mL oral 30 g (45 mL) PO QID #3,000 mL 10/23/21 11/09/21 Rx solution atogepant 30 mg tablet (Qulipta) 30 mg PO DAILY #30 tabs 11/02/21 11/09/21 Rx omeprazole 40 mg capsule,delayed 40 mg PO QAM #90 caps 11/05/21 11/09/21 Rx release hydrocortisone 10 mg tablet See Rx Instructions .Route 11/07/21 11/09/21 Rx .COMPLEX #45 tabs jqxsohsmgemchtkbzjmmyq-vtdojfpm-pezlnwqo 1 drops OPB QID 11/10/21 11/10/21 History 80 0.5 %-1 %-0.5 % eye drops (Refresh Optive Advanced) sertraline 50 mg tablet 50 mg PO DAILY 11/10/21 11/10/21 History Past Med/Surg History Medical History Acute alteration in mental status Acute alteration in mental status Acute confusion Acute dehydration Acute hepatic encephalopathy Acute hepatic encephalopathy Acute hepatic encephalopathy Altered mental status Depression Diabetes mellitus Electrolyte abnormality Hyperammonemia Hyperbilirubinemia Nonalcoholic fatty liver disease Parkinsonism Sleepiness Spleen enlargement Thrombocytopenia Urinary tract infection UTI (urinary tract infection) Surgical History Femur fracture, right SPIRAL FRACTURE REPAIRED (HARDWARE REPAIRED) History of ankle surgery RT/LEFT History of appendectomy History of cholecystectomy History of colonoscopy History of esophagogastroduodenoscopy (EGD) History of kyphoplasty History of open reduction and internal fixation (ORIF) procedure RT HIP History of surgery (~06/02/20) screw/plate removal from left humerus History of surgery on arm LEFT (HARDWARE INTACT) History of tooth extraction History of vascular access device right A port Hx of carpal tunnel repair RT/LEFT Hx of cataract extraction RT/LEFT S/P laminectomy lumbar spine S/P nasal surgery nasal bone fracture repair S/P TIFFANIE-BSO (1997) Family History Other Adopted No pertinent family history Social History Smoking Status: Never smoker Tobacco Type: Cigarettes Second Hand Exposure: No; Hx Alcohol Use: No Hx Substance Use: No Preferred Language: Mexican Communication Ability: Effective Visual Impairment: No Limitations 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 Beliefs That Will Affect Care: None marital status: Current Living Situation: Spouse Current Living Situation Comment: Lives with current occupational status: unemployed and disabled How many Children do You have: 0 Feels Safe at Home: Yes Seatbelt Use: always Assistive Devices: Wheelchair Review of Systems Review of Systems: All systems reviewed & are unremarkable except as noted in HPI & below Physical Exam Physical Exam: General: patient resting comfortably, NAD, non-toxic in appearance, AA&O x 4 Skin: warm, dry, intact, no rashes or lesions HEENT: NC/AT, PERRL, EOMI, anicteric sclera, conjunctiva without injection, external ear normal to inspection and nontender, nares patent, moist mucus membranes, dentition intact, no oropharyngeal lesions, neck supple, trachea midline, no LAD, no thyromegaly, no JVD Heart: +S1/S2, regular, no m/r/g Lungs: equal air entry bilaterally, no rales/rhonchi/wheezes Abd: +BS, soft, ND, tenderness with palpation in lower abdomen, no rebound/guarding/peritoneal signs, no masses/organomegaly/ascites Ext: warm, 2+ pulses in UE/LE bilaterally, no clubbing/cyanosis or edema Neuro: nonfocal, patient AA&O x 4, speech intact, no facial droop, moving all extremities on command with equal strength 5/5 Results & Data Results & Data ([facility]) Vital Signs (Past 12 Hours) Vital Signs Temp Pulse Resp BP Pulse Ox O2 Del Method 11/09/21 23:30 75 16 117/85 97 11/09/21 21:30 69 24 147/67 H 93 11/09/21 21:00 66 27 H 135/116 H 99 11/09/21 20:30 72 21 135/76 96 11/09/21 20:16 69 24 98 11/09/21 19:25 36.4 C L 76 18 97 Room Air Laboratory Results Laboratory Results WBC 5.53 K/ul (4.8-10.8) 11/09/21 20:35 RBC 3.12 M/uL (3.93-5.22) L 11/09/21 20:35 Hgb 11.2 g/dl (12.0-16.0) L 11/09/21 20:35 Hct 31.7 % (34.1-44.9) L 11/09/21 20:35 MCV 101.6 fL (80.0-100.0) H 11/09/21 20:35 MCH 35.9 pg (25.0-34.0) H 11/09/21 20:35 MCHC 35.3 g/dL (32.0-36.0) 11/09/21: RDW Std Deviation 47.9 fL (36.4-46.3) H 11/09/21: RDW Coeff of Irina 13.2 % (11.5-14.5) 11/09/21: Plt Count 102 K/uL (130-400) L 11/09/21: MPV 10.4 fL (9.4-12.3) 11/09/21:35 Immature Gran % (Auto) 0.4 % 11/09/21 20:35 Neut % (Auto) 63.6 % 11/09/21:35 Lymph % (Auto) 21.9 % 11/09/21 20:35 [place] % (Auto) 10.3 % 11/09/21 20:35 Eos % (Auto) 2.9 % 11/09/21 20:35 Baso % (Auto) 0.9 % 11/09/21:35 Neut # (Auto) 3.52 K/uL (1.4-6.5) 11/09/21 20:35 Lymph # (Auto) 1.21 K/uL (1.2-3.4) 11/09/21:35 [place] # (Auto) 0.57 K/uL (0.24-0.82) 11/09/21 20:35 Eos # (Auto) 0.16 K/uL (0-0.50) 11/09/21 20: Baso # (Auto) 0.05 K/uL (0-0.2) 11/09/21: Immature Gran # (Auto) 0.02 K/uL (0.00-0.02) 11/09/21 20:35 Sodium 136 mmol/L (136-145) 11/09/21: Potassium 3.4 mmol/L (3.5-5.1) L 08/12/22 20:35 Chloride 109 mmol/L (98-107) H 11/09/21 20:35 Carbon Dioxide 21 mmol/L (21-32) 11/09/21 20:35 Anion Gap 6 (3-11) 11/09/21 20:35 BUN 11 mg/dl (6-23) 11/09/21 20:35 Creatinine 0.75 mg/dl (0.6-1.2) 11/09/21 20:35 Est Cr Clr Drug Dosing Not Reportable 11/09/21 20:35 Est GFR ( Amer) 104.0 ml/min 11/09/21 20:35 Est GFR (Non-Af Amer) 89.7 ml/min 11/09/21 20:35 BUN/Creatinine Ratio 14.7 (10-20) 11/09/21 20:35 Glucose 96 mg/dl (70-99(Fasting)) 11/09/21 20:35 Calcium 7.9 mg/dl (8.5-10.1) L 11/09/21 20:35 Magnesium 1.7 mg/dl (1.7-2.4) 11/09/21 20:35 Total Bilirubin 1.5 mg/dl (0.2-1.0) H 11/09/21 20:35 AST 28 U/L (13-39) 11/09/21 20:35 ALT 33 U/L (7-52) 11/09/21 20:35 Alkaline Phosphatase 128 U/L (34-104) H 11/09/21 20:35 Ammonia 79.0 umol/L (18-72) H 11/09/21 20:35 Total Protein 5.5 gm/dl (6.0-8.3) L 11/09/21 20:35 Albumin 3.1 gm/dl (3.4-5.0) L 11/09/21 20:35 Globulin 2.4 gm/dl (2.5-4.0) L 11/09/21 20:35 Albumin/Globulin Ratio 1.3 (0.9-2) 11/09/21 20:35 Lipase 25 U/L (11-82) 11/09/21 20:35 Urine Color Yellow 11/09/21 21:15 Urine Appearance Cloudy (Clear) A 11/09/21 21:15 Urine pH 6.0 (4.5-7.5) 11/09/21 21:15 Ur Specific [place] 1.015 (1.000-1.030) 11/09/21 21:15 Urine Protein Negative (Negative) 11/09/21 21:15 Urine Glucose (UA) Negative (Negative) 11/09/21 21:15 Urine Ketones Negative (Negative) 11/09/21 21:15 Urine Blood Negative (Negative) 11/09/21 21:15 Urine Nitrite Negative (Negative) 11/09/21 21:15 Urine Bilirubin Negative (Negative) 11/09/21 21:15 Urine Urobilinogen Negative (Negative) 11/09/21 21:15 Ur Leukocyte Esterase 2+ (Negative) H 11/09/21 21:15 Urine WBC (Auto) >30 /hpf (0-5) H 11/09/21 21:15 Urine RBC (Auto) 0-4 /hpf (0-4) 11/09/21 21:15 U Hyaline Cast (Auto) 1-5 /lpf (0-5) 11/09/21 21:15 U Epithel Cells (Auto) 5-10 /lpf (0-5) H 11/09/21 21:15 Urine Bacteria (Auto) 4+ (Negative) H 11/09/21 21:15 SARS-CoV-2, RNA, NAAT NEGATIVE (NEGATIVE) 11/09/21 20:35 Impressions Abdomen/Pelvis CT 11/09/21 20:01 CT abd pelvis IV con only CLINICAL HISTORY: lower abd pain, distention TECHNIQUE: Helical axial images of the abdomen and pelvis were obtained and displayed. Automated dose lowering techniques and/or adjustment according to patient size were utilized for this exam. This exam was performed with intravenous contrast. CT DOSE: 1197.14 mGy.cm COMPARISON: Comparison is made to CT abdomen pelvis 10/18/2021 FINDINGS: Lower chest: Vague Liver: Unremarkable. No focal lesions are seen. Gallbladder and biliary tree: Patient is status post cholecystectomy. No intra- or extrahepatic biliary ductal dilation. Pancreas: Unremarkable, no focal lesions. Spleen: Unremarkable. Adrenals: Unremarkable. Kidneys and ureters: Nonobstructive nephrolithiasis is seen. Bladder: Unremarkable. Reproductive organs: Unremarkable. Bowel: Prominent liquid contents are noted in the descending and transverse colon. No evidence of bowel obstruction is seen. Lymph nodes Retroperitoneal: Unremarkable. Pelvic: Unremarkable. Mesenteric: Unremarkable. Peritoneum: Normal. Vessels: Unremarkable. Abdominal wall: Unremarkable. Bones: Degenerative changes in the visualized spine. Anterior wedge deformity of L1 is unchanged. IMPRESSION: Prominent liquid contents in the proximal colon. No evidence of obstruction. ACT 112: Negative or not required by law. Electronically signed by: Serjio Campbell M.D. 11/09/2021 10:27 PM PG Care Time/CCT Total # of Minutes Spent Total Time Spent with Patient: Total time spent is greater than 50% in coordination of care (as documented) at patient's floor/unit and/or counseling patient: Coding Level of Care Code INT OBSERVATION CARE 70M LVL 3 Diagnoses UTI (urinary tract infection) N30.00 Hematuria presence: without hematuria Urinary tract infection type: acute cystitis Constipation K59.00 Constipation type: unspecified constipation type Hyperammonemia E72.20 Adrenal insufficiency E27.40 Diabetes mellitus E11.9 Nonalcoholic fatty liver disease K76.0 Depression F32.9 Dyslipidemia E78.5 Parkinsonism G20 (1) UTI (urinary tract infection) Hematuria presence: without hematuria Urinary tract infection type: acute cystitis Qualified Code(s): N30.00 - Acute cystitis without hematuria (2) Constipation Constipation type: unspecified constipation type Qualified Code(s): K59.00 - Constipation, unspecified
[2021-11-10] MEDS ORDERED: GLUCOSE 40% GEL 15 GM TUBE PO PRN (02:50)
[2021-11-10] MEDS ORDERED: POTASSIUM CHLORIDE CRTAB 20 MEQ TABCR PO STA (02:50)
[2021-11-10] MEDS ORDERED: GLUCAGON FOR INJ 1 MG VIAL SQ PRN (02:50)
[2021-11-10] MEDS ORDERED: POLYETHYLENE (MIRALAX) 17 GM PACK PO PRN (02:50)
[2021-11-10] MEDS ORDERED: DEXTROSE 50% 50 ML SYRINGE IV PRN (02:50)
[2021-11-10] MEDS ORDERED: ALBUT/IPRATROP 3MG/0.5MG NEB 3 ML VIAL INH PRN (02:50)
[2021-11-10] MEDS ORDERED: ONDANSETRON INJ 2 MG/ML 2 ML VIAL IV PRN (02:50)
[2021-11-10] MEDS ORDERED: bisacodyL 10 MG SUPP PR PRN (02:50)
[2021-11-10] MEDS ORDERED: ALBUTEROL HFA 8 GM INHALER INH PRN (02:50)
[2021-11-10] MEDS ORDERED: ACETAMINOPHEN 500 MG TAB PO PRN (02:50)
[2021-11-10] MEDS ORDERED: GLUCOSE 10 TAB/TUBE PO PRN (02:50)
[2021-11-10] MEDS ORDERED: CARBOHYDRATES FOR HYPOGLYCEMIA PO PRN (02:50)
[2021-11-10] MEDS: LEVOTHYROXINE SODIUM 50 MCG TABLET PO SCH (05:23)
--- NOTE | 2021-11-10 08:00 | Hospitalist Progress Note ---
Date of Service November 10, 2021 Assessment & Plan (1) UTI (urinary tract infection): Plan: Uncomplicated UTI. History of ESBL klebsiella UTI. Urine in ER appears to be infected. Patient afebrile, HD stable and non-toxic in appearance. She was previously treated with Meropenem --> Ertapenem and completed a 7 day course as of 10/22/21 -Follow culture -Isolation precautions -Ertapenem (2) Constipation: Plan: No BM x 2 days -Enema administered in ER -Continue Dulcolax, Miralax PRN -Lactulose TID -Enema PRN (3) Hyperammonemia: Plan: Elevated ammonia level in patient with NAFLD and cirrhosis. Patient is awake, alert and able to answer questions. Does not appear to be encephalopathic at this time. -Continue Lactulose -Continue Rifaximin (4) Adrenal insufficiency: Plan: Suspected diagnosis.She was given stress dosed steroids during her last admissi on. Blood pressure stable at present. -Continue home hydrocortisone -Endocrinology followup recommended for repeat testing (5) Diabetes mellitus: Plan: Chronic. A1c was 5.2% in 08/2021. Patient follows with [facility] - last seen on 11/04/21 -Continue Degludec. Will decreased to 20u daily -ISS -Continue Phenergan for diabetic gastroparesis (6) Nonalcoholic fatty liver disease: Plan: With cirrhosis. Appears to be compensated. Labs are near baseline. EGD in 2020 without esophageal varices. -Avoid hepatotoxic agents -Continue Lactulose -Continue Amiloride (7) Depression: Plan: Chronic. Patient recently changed to Sertraline -Continue Sertraline 50 mg daily (8) Dyslipidemia: Plan: Chronic -Continue Pravastatin (9) Parkinsonism: Plan: Chronic. Secondary to her seizure and other psychiatric medications. -Continue topiramte, ropinirole, ocarbazepine, Keppra and Benztropine Admission and Anticipated Discharge Date Admission Date: November 10, 2021 Subjective Patient's in her normal state of health by my count. She states she had bowel movements this morning. She states she was taking her home lactulose. Patient recounts an episode of a visit with her diabetes with discussion of possible adding regular insulin to her regime. The visit actually states that they are considering this but did not want to enact it currently. They said there was some consideration of instituting metformin for which she had in the past. Otherwise she does not appear encephalopathic Review of Systems Review of Systems: Mild distress and fatigue no headache, no visual changes no speech or swallowing issues no chest pain, pressure or palpitations no shortness of breath, cough or wheezes no abdominal pain, nausea or vomiting, diarrhea or constipation no dysuria, hematuria or frequency no focal joint pain or swelling no back pain, CVA tenderness or radicular pain no bruising, bleeding or rashes no focal signs of weakness or numbness or altered sensation he does have tardive dyskinesia and some tremor no complaints of anxiety or depression. Patient typically asked for pain medications and she did so today. Physical Exam Physical Exam: The patient appeared well nourished and normally developed. Appears chronically ill Vital signs as documented. Head exam is normocephalic atraumatic Neck is without JVD, thyromegaly, or carotid bruits. Lungs are clear to auscultation, no focal loss of breath sounds Cardiac exam, Rhythm is regular.. No murmurs, rubs or gallops. Abdominal exam reveals normal bowel sounds, soft non tender, no masses Extremities are nonedematous and both pedal pulses are present Neurologic exam is alert and oriented, no focal loss of strength or sensation she has tardive dyskinetic movements and resting tremor Skin is without bruises or rashes Psychologically is with concerns for depression.. Results & Data Results & Data ([facility]) Vital Signs (Past 12 Hours) Vital Signs Temp Pulse Pulse Resp BP BP Pulse Ox 11/10/21 07:21 97.7 F 67 16 124/77 97 11/10/21 03:13 97.5 F L 64 16 106/72 97 11/10/21 02:00 62 20 147/73 H 97 11/10/21 01:30 60 18 143/71 H 97 11/10/21 01:00 62 23 153/92 H 98 11/10/21 00:47 65 20 140/97 11/09/21 23:30 75 16 117/85 97 11/09/21 21:30 69 24 147/67 H 93 11/09/21 21:00 66 27 H 135/116 H 99 11/09/21 20:30 72 21 135/76 96 11/09/21 20:16 69 24 98 O2 Del Method 11/10/21 07:21 Room Air 11/10/21 03:13 Room Air 11/10/21 02:00 11/10/21 01:30 11/10/21 01:00 11/10/21 00:47 11/09/21 23:30 11/09/21 21:30 11/09/21 21:00 11/09/21 20:30 11/09/21 20:16 PG Care Time/CCT Total # of Minutes Spent Total Time Spent with Patient: Total time spent is greater than 50% in coordination of care (as documented) at patient's floor/unit and/or counseling patient: Coding Level of Care Code 94883 Subseq Hosp Care Lvl 2 Diagnoses UTI (urinary tract infection) N30.00 Hematuria presence: without hematuria Urinary tract infection type: acute cystitis Constipation K59.00 Constipation type: unspecified constipation type Hyperammonemia E72.20 Adrenal insufficiency E27.40 Diabetes mellitus E11.9 Nonalcoholic fatty liver disease K76.0 Depression F32.9 Dyslipidemia E78.5 Parkinsonism G20 (1) UTI (urinary tract infection) Hematuria presence: without hematuria Urinary tract infection type: acute cystitis Qualified Code(s): N30.00 - Acute cystitis without hematuria (2) Constipation Constipation type: unspecified constipation type Qualified Code(s): K59.00 - Constipation, unspecified
[2021-11-10 08:40] LABS: Basophils # (auto) 0.05 K/uL (0-0.2); Basophils % (auto) 1.1 %; Eosinophils # (auto) 0.14 K/uL (0-0.50); Hematocrit (blood only) 33.3 % (34.1-44.9); Hemoglobin 11.6 g/dl (12.0-16.0); Immature Granulocytes # (auto) 0.01 K/uL (0.00-0.02); Immature Granulocytes % (auto) 0.2 %; Lymphocytes # (auto) 1.43 K/uL (1.2-3.4); Lymphocytes % (auto) 30.4 %; Mean Platelet Volume 10.7 fL (9.4-12.3); Monocytes # (auto) 0.42 K/uL (0.24-0.82); Monocytes % (auto) 8.9 %; Neutrophils # (auto) 2.66 K/uL (1.4-6.5); Neutrophils % (auto) 56.4 %; Platelet Count 97 K/uL (130-400); White Blood Count 4.71 K/ul (4.8-10.8)
[2021-11-10] MEDS: SERTRALINE HCL 50 MG TABLET PO SCH (08:59)
[2021-11-10] MEDS: PRAVASTATIN SOD 20 MG TAB PO SCH (08:59)
[2021-11-10] MEDS: TOPIRAMATE 100 MG TAB PO SCH ×2 (08:59→22:12)
[2021-11-10] MEDS: levETIRAcetam 500 MG TAB PO SCH ×2 (09:00→22:11)
[2021-11-10] MEDS: aMILoride HCL 5 MG TAB PO SCH (09:00)
[2021-11-10] MEDS: rOPINIRole HCL 0.25 MG TABLET PO SCH ×2 (09:00→22:11)
[2021-11-10] MEDS: BENZTROPINE MESYLATE 1 MG TAB PO SCH ×3 (09:00→22:12)
[2021-11-10] MEDS: rifAXIMin 550 MG TABLET PO SCH ×2 (09:00→22:10)
[2021-11-10] MEDS: HYDROCORTISONE 10 MG TAB PO SCH ×2 (09:00→16:59)
[2021-11-10] MEDS: OXcarbazepine 150 MG TABLET PO SCH ×2 (09:00→22:12)
[2021-11-10] MEDS: MAGNESIUM OXIDE 400 MG TAB PO SCH ×2 (09:00→22:11)
[2021-11-10] MEDS: FEXOFENADINE 60 MG TAB PO SCH (09:00)
[2021-11-10 09:06] LABS: Mean Corpuscular Hemoglobin 35.6 pg (25.0-34.0); Mean Corpuscular Hgb Conc 34.8 g/dL (32.0-36.0); Mean Corpuscular Volume 102.1 fL (80.0-100.0); Ovalocytes 1+; RDW Coefficient of Variation 13.3 % (11.5-14.5); RDW Standard Deviation 49.7 fL (36.4-46.3); Red Blood Count 3.26 M/uL (3.93-5.22)
[2021-11-10] MEDS: LACTULOSE SYRUP 30 GM/45 ML UDP PO SCH ×4 (09:07→22:12)
[2021-11-10] MEDS: LANTUS PER UNIT CHARGE SQ SCH (09:10)
[2021-11-10] MEDS: INSULIN ASPART PER UNIT SC SCH ×4 (09:19→22:09)
[2021-11-10 09:37] LABS: Albumin Level 3.2 gm/dl (3.4-5.0); BUN Creatinine Ratio 18.2 (10-20); Bilirubin Direct 0.2 mg/dl (0-0.2); Bilirubin,Total 1.2 mg/dl (0.2-1.0); Calcium 8.2 mg/dl (8.5-10.1); Creatinine Clr Calc Pharmacy 102.8 ml/min; Est GFR (African American) 115.3 ml/min; Est GFR (Non-African American) 99.4 ml/min; Potassium 4.4 mmol/L (3.5-5.1); Total Protein 5.6 gm/dl (6.0-8.3)
[2021-11-10] MEDS: ADVANCED PROBIOTIC 1250 MG CAPSULE PO SCH (12:35)
[2021-11-10] MEDS ORDERED: HYDROcodone/ACETAMINOPHEN 10/325 TAB PO PRN (14:26)
[2021-11-10] MEDS: ATOGEPANT 30 MG PO SCH (15:11)
[2021-11-10] MEDS: PROMETHAZINE HCL 25 MG TAB PO PRN (20:11)
[2021-11-10] MEDS ORDERED: MELATONIN 3 MG TAB PO SCH (21:00)
[2021-11-10] MEDS ORDERED: FAMOTIDINE 20 MG TAB PO SCH (21:00)
[2021-11-10] MEDS: QUEtiapine FUMARATE 25 MG TABLET PO SCH (22:09)
[2021-11-10] MEDS: ACETAMINOPHEN 500 MG TAB PO SCH (22:10)
[2021-11-10] MEDS: ERTAPENEM SODIUM 1,000 MG in SYRINGE 0 ML IV SCH (22:14)
--- NOTE | 2021-11-11 06:29 | Communication Note ---
Date of Service: November 11, 2021 bladder scan 531. added prn straight cath. holding off on liu for now
[2021-11-11] MEDS: LEVOTHYROXINE SODIUM 50 MCG TABLET PO SCH (06:32)
[2021-11-11] MEDS: INSULIN ASPART PER UNIT SC SCH ×4 (09:00→21:55)
[2021-11-11] MEDS: LANTUS PER UNIT CHARGE SQ SCH (09:01)
[2021-11-11] MEDS: LACTULOSE SYRUP 30 GM/45 ML UDP PO SCH ×4 (09:10→21:40)
[2021-11-11] MEDS: TOPIRAMATE 100 MG TAB PO SCH ×2 (09:11→21:40)
[2021-11-11] MEDS: MAGNESIUM OXIDE 400 MG TAB PO SCH ×2 (09:11→21:48)
[2021-11-11] MEDS: FEXOFENADINE 60 MG TAB PO SCH (09:11)
[2021-11-11] MEDS: BENZTROPINE MESYLATE 1 MG TAB PO SCH ×3 (09:11→21:46)
[2021-11-11] MEDS: HYDROCORTISONE 10 MG TAB PO SCH ×2 (09:11→18:30)
[2021-11-11] MEDS: PRAVASTATIN SOD 20 MG TAB PO SCH (09:12)
[2021-11-11] MEDS: OXcarbazepine 150 MG TABLET PO SCH ×2 (09:12→21:44)
[2021-11-11] MEDS: rOPINIRole HCL 0.25 MG TABLET PO SCH ×2 (09:12→21:49)
[2021-11-11] MEDS: levETIRAcetam 500 MG TAB PO SCH ×2 (09:12→21:48)
[2021-11-11] MEDS: SERTRALINE HCL 50 MG TABLET PO SCH (09:13)
[2021-11-11] MEDS: rifAXIMin 550 MG TABLET PO SCH ×2 (09:13→21:49)
[2021-11-11] MEDS: aMILoride HCL 5 MG TAB PO SCH (09:13)
[2021-11-11] MEDS: ATOGEPANT 30 MG PO SCH (09:14)
[2021-11-11] MEDS: HEPARIN 100 UNIT/ML 5ML FLUSH FLUSH PRN ×2 (10:34→21:56)
[2021-11-11] MEDS ORDERED: PANTOprazole 40 MG in SYRINGE 0 ML IV ONE (12:50)
[2021-11-11] MEDS ORDERED: oxyCODONE HCL IR 5 MG TAB (IMMEDIATE RELEASE) PO PRN (12:52)
--- NOTE | 2021-11-11 13:31 | Hospitalist Progress Note ---
Date of Service November 11, 2021 Assessment & Plan (1) UTI (urinary tract infection): Plan: Uncomplicated UTI. History of ESBL klebsiella UTI. Urine in ER appears to be infected. Patient afebrile, HD stable and non-toxic in appearance. She was previously treated with Meropenem --> Ertapenem and completed a 7 day course as of 10/22/21 -Culture shows Klebsiella with resistance. It is sensitive to quinolones and Augmentin however she is allergic to penicillins. We will likely transition to levofloxacin at time of discharge -Isolation precautions -Ertapenem (2) Constipation: Plan: patient is having bowel movements now -Continue Dulcolax, Miralax PRN -Lactulose TID Complains of some right upper quadrant abdominal pain. She reportedly has a history of a portal vein thrombosis. We will repeat a Doppler of her liver to evaluate for such causes of this discomfort. LFTs were checked 1 day ago and they were reasonable (3) Hyperammonemia: Plan: Elevated ammonia level in patient with NAFLD and cirrhosis. Patient is awake, alert and able to answer questions. Does not appear to be encephalopathic at this time. -Continue Lactulose -Continue Rifaximin (4) Adrenal insufficiency: Plan: Suspected diagnosis.She was given stress dosed steroids during her last admission. Blood pressure stable at present. -Continue home hydrocortisone -Endocrinology followup recommended for repeat testing (5) Diabetes mellitus: Plan: Chronic. A1c was 5.2% in 08/2021. Patient follows with Posting Clerk - last seen on 11/04/21 -Continue Degludec. Will decreased to 20u daily -ISS -Continue Phenergan for diabetic gastroparesis (6) Nonalcoholic fatty liver disease: Plan: With cirrhosis. Appears to be compensated. Labs are near baseline. EGD in 2020 without esophageal varices. -Avoid hepatotoxic agents -Continue Lactulose -Continue Amiloride (7) Depression: Plan: Chronic. Patient recently changed to Sertraline -Continue Sertraline 50 mg daily (8) Dyslipidemia: Plan: Chronic -Continue Pravastatin (9) Parkinsonism: Plan: Chronic. Secondary to her seizure and other psychiatric medications. -Continue topiramte, ropinirole, ocarbazepine, Keppra and Benztropine Admission and Anticipated Discharge Date Admission Date: November 10, 2021 Subjective Patient has some complaints of right upper quadrant pain. She is also complaining that her pain medication is inadequate. She does have bowel movements. Review of Systems Review of Systems: Mild distress and fatigue no headache, no visual changes no speech or swallowing issues no chest pain, pressure or palpitations no shortness of breath, cough or wheezes Right upper quadrant abdominal pain, no nausea or vomiting, having diarrhea as expected with her lactulose no dysuria, hematuria or frequency no focal joint pain or swelling no back pain, CVA tenderness or radicular pain no bruising, bleeding or rashes no focal signs of weakness or numbness or altered sensation positive resting tremor and likely some tardive dyskinesia no complaints of anxiety or depression.. Physical Exam Physical Exam: The patient appeared well compensated but chronically ill Vital signs as documented. Head exam is normocephalic atraumatic Neck is without JVD, thyromegaly, or carotid bruits. Lungs are clear to auscultation, no focal loss of breath sounds Cardiac exam, Rhythm is regular.. No murmurs, rubs or gallops. Abdominal exam reveals normal bowel sounds, soft tender with hepatomegaly Extremities are nonedematous and both pedal pulses are present Neurologic exam is alert and oriented, no focal loss of strength or sensation tremor and dyskinetic movements are noted Skin is without bruises or rashes Psychologically is without concerns for anxiety or depression.. Results & Data Results & Data ([facility]) Vital Signs (Past 12 Hours) Vital Signs Temp Pulse Resp BP Pulse Ox O2 Del Method 11/11/21 07:34 97.9 F 68 20 148/80 H 98 Room Air PG Care Time/CCT Total # of Minutes Spent Total Time Spent with Patient: Total time spent is greater than 50% in coordination of care (as documented) at patient's floor/unit and/or counseling patient: Coding Level of Care Code 41979 Subseq Hosp Care Lvl 2 Diagnoses UTI (urinary tract infection) N30.00 Hematuria presence: without hematuria Urinary tract infection type: acute cystitis Constipation K59.00 Constipation type: unspecified constipation type Hyperammonemia E72.20 Adrenal insufficiency E27.40 Diabetes mellitus E11.9 Nonalcoholic fatty liver disease K76.0 Depression F32.9 Dyslipidemia E78.5 Parkinsonism G20 (1) UTI (urinary tract infection) Hematuria presence: without hematuria Urinary tract infection type: acute cystitis Qualified Code(s): N30.00 - Acute cystitis without hematuria (2) Constipation Constipation type: unspecified constipation type Qualified Code(s): K59.00 - Constipation, unspecified
[2021-11-11] MEDS: ADVANCED PROBIOTIC 1250 MG CAPSULE PO SCH (14:15)
[2021-11-11] MEDS: ACETAMINOPHEN 500 MG TAB PO SCH (21:45)
[2021-11-11] MEDS: QUEtiapine FUMARATE 25 MG TABLET PO SCH (21:47)
[2021-11-11] MEDS: ERTAPENEM SODIUM 1,000 MG in SYRINGE 0 ML IV SCH (21:56)
[2021-11-12] MEDS: LEVOTHYROXINE SODIUM 50 MCG TABLET PO SCH (06:22)
[2021-11-12] MEDS: HEPARIN 100 UNIT/ML 5ML FLUSH FLUSH PRN ×2 (08:55→22:15)
[2021-11-12 08:59] LABS: Hematocrit (blood only) 36.2 % (34.1-44.9); Hemoglobin 12.2 g/dl (12.0-16.0); Mean Platelet Volume 10.4 fL (9.4-12.3); Platelet Count 92 K/uL (130-400); White Blood Count 4.84 K/ul (4.8-10.8)
[2021-11-12 09:17] LABS: Mean Corpuscular Hemoglobin 35.9 pg (25.0-34.0); Mean Corpuscular Hgb Conc 33.7 g/dL (32.0-36.0); Mean Corpuscular Volume 106.5 fL (80.0-100.0); RDW Coefficient of Variation 13.5 % (11.5-14.5); RDW Standard Deviation 52.4 fL (36.4-46.3)
[2021-11-12 09:29] LABS: Albumin Globulin Ratio 1.2 (0.9-2); Albumin Level 3.2 gm/dl (3.4-5.0); Bilirubin,Total 1.2 mg/dl (0.2-1.0); Calcium 7.9 mg/dl (8.5-10.1); Creatinine Clr Calc Pharmacy 83.7 ml/min; Est GFR (African American) 94.8 ml/min; Est GFR (Non-African American) 81.8 ml/min; Globulin 2.6 gm/dl (2.5-4.0); Potassium 4.3 mmol/L (3.5-5.1); Total Protein 5.8 gm/dl (6.0-8.3)
[2021-11-12] MEDS: LANTUS PER UNIT CHARGE SQ SCH (09:45)
[2021-11-12] MEDS: INSULIN ASPART PER UNIT SC SCH ×4 (09:46→22:13)
[2021-11-12] MEDS: ATOGEPANT 30 MG PO SCH (10:25)
[2021-11-12] MEDS: FEXOFENADINE 60 MG TAB PO SCH (10:26)
[2021-11-12] MEDS: BENZTROPINE MESYLATE 1 MG TAB PO SCH ×3 (10:26→22:18)
[2021-11-12] MEDS: aMILoride HCL 5 MG TAB PO SCH (10:27)
[2021-11-12] MEDS: HYDROCORTISONE 10 MG TAB PO SCH ×2 (10:27→18:51)
[2021-11-12] MEDS: MAGNESIUM OXIDE 400 MG TAB PO SCH ×2 (10:28→22:16)
[2021-11-12] MEDS: levETIRAcetam 500 MG TAB PO SCH ×2 (10:28→22:17)
[2021-11-12] MEDS: OXcarbazepine 150 MG TABLET PO SCH ×2 (10:29→22:18)
[2021-11-12] MEDS: ADVANCED PROBIOTIC 1250 MG CAPSULE PO SCH (10:30)
[2021-11-12] MEDS: TOPIRAMATE 100 MG TAB PO SCH ×2 (10:31→22:19)
[2021-11-12] MEDS: rifAXIMin 550 MG TABLET PO SCH ×2 (10:31→22:16)
[2021-11-12] MEDS: SERTRALINE HCL 50 MG TABLET PO SCH (10:31)
[2021-11-12] MEDS: rOPINIRole HCL 0.25 MG TABLET PO SCH ×2 (10:31→22:20)
[2021-11-12] MEDS: PANTOprazole 40 MG TAB PO SCH (10:32)
[2021-11-12] MEDS: PRAVASTATIN SOD 20 MG TAB PO SCH (10:32)
[2021-11-12] MEDS: LACTULOSE SYRUP 30 GM/45 ML UDP PO SCH ×4 (10:36→22:15)
--- NOTE | 2021-11-12 12:30 | Ultrasound Report ---
DOPPLER ULTRASOUND OF THE HEPATIC AND PORTAL VASCULATURE CLINICAL HISTORY: Generalized abdominal pain. Cirrhosis. Assess the portal veins. COMPARISON STUDY: Abdominal CT dated 11/09/2021. TECHNIQUE: Real-time grayscale and color Doppler sonography of the hepatic and portal vasculature was performed. The examination is significantly degraded by large body habitus and overlying bowel gas. FINDINGS: The liver is cirrhotic in morphology and heterogeneous in echotexture. The main portal vein and the intrahepatic portal veins are not well-visualized. Scattered foci of flow are clearly seen w ithin the portal vessels. There may be reversal of flow. These were shown to be diminutive but patent on the 11/09/[address] scan. The hepatic artery is patent with velocities measuring up to 52 cm/s. The hepatic veins are patent as visualized with loss of the normal hepatic venous waveforms. Th e splenic vein was not visualized. IMPRESSION: 1. The portal veins are not well assessed. These were shown to be diminutive but patent on the abdominal CT. 2. The hepatic veins are patent noting loss of the normal hepatic venous waveforms. Dictated: 11/12/2021 11:47 AM Transcribed: 11/12/2021 12:18 PM Deepti [id number] [email or web address] Electronically signed by: Aiden Randolph M.D. 11/12/2021 12:29 PM
--- NOTE | 2021-11-12 18:30 | Hospitalist Progress Note ---
Date of Service November 12, 2021 Assessment & Plan (1) UTI (urinary tract infection): Plan: Uncomplicated UTI. History of ESBL klebsiella UTI. Urine in ER appears to be infected. Patient afebrile, HD stable and non-toxic in appearance. 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 Patient is awake, alert and able to answer questions. Does not appear to be encephalopathic at this time. -Continue Lactulose -Continue Rifaximin has ammonia in the 80 range which is similar to her usual range (4) Adrenal insufficiency: Plan: Suspected diagnosis.She was given stress dosed steroids during her last admission. Blood pressure stable at present. -Continue home hydrocortisone -Endocrinology followup recommended for repeat testing (5) Diabetes mellitus: Plan: Chronic. A1c was 5.2% in 08/2021. Patient follows with Lead Programmer Analyst - last seen on 11/04/21 -Continue Degludec. Will decreased to 20u daily -ISS -Continue Phenergan for diabetic gastroparesis (6) Nonalcoholic fatty liver disease: Plan: With cirrhosis. Appears to be compensated. Labs are near baseline. EGD in 2020 without esophageal varices. -Avoid hepatotoxic agents -Continue Lactulose -Continue Amiloride (7) Depression: Plan: Chronic. Patient recently changed to Sertraline -Continue Sertraline 50 mg daily (8) Dyslipidemia: Plan: pravastatin (9) Parkinsonism: Plan: Chronic. Secondary to her seizure and other psychiatric medications. -Continue topiramte, ropinirole, ocarbazepine, Keppra and Benztropine Admission and Anticipated Discharge Date Admission Date: November 09, 2021 Subjective pt is slighlty more confused today , on the tails of her asking for more pain medication on 11/11, so will de escalate this her hepatic encepahalopathy is stable constipation is resolved now seems focused on her ankle issue, which is non operative at this time, braces were recommended and pt states she cannot afford them Review of Systems Review of Systems: Mild distress and fatigue no headache, no visual changes no speech or swallowing issues no chest pain, pressure or palpitations no shortness of breath, cough or wheezes no abdominal pain, nausea or vomiting, diarrhea or constipation no dysuria, hematuria or frequency Bilateral ankle pain and difficulty walking no back pain, CVA tenderness or radicular pain no bruising, bleeding or rashes no focal signs of weakness or numbness or has baseline altered sensation tremor tardive dyskinesia no complaints of anxiety or depression.. Physical Exam Physical Exam: The patient appeared stable Vital signs as documented. Lungs are clear to auscultation and appear unlabored Cardiac exam, Rhythm is regular.. No murmurs, rubs or gallops. Abdominal exam reveals normal bowel sounds, soft non tender, no masses Extremities are with bilateral deformity Neurologic exam is alert and oriented, no focal loss of strength or sensation tremor and dyskinetic changes Skin is without bruises or rashes Psychologically is without concerns for anxiety or depression. Results & Data Results & Data ([facility]) Vital Signs (Past 12 Hours) Vital Signs Temp Pulse Resp BP BP Pulse Ox O2 Del Method 11/12/21 15:19 98.4 F 78 16 128/81 96 Room Air 11/12/21 07:36 Room Air 11/12/21 07:24 98.6 F 71 18 115/76 98 Room Air PG Care Time/CCT Total # of Minutes Spent Total Time Spent with Patient: Total time spent is greater than 50% in coordination of care (as documented) at patient's floor/unit and/or counseling patient: Coding Level of Care Code 57477 Subseq Hosp Care Lvl 2 Diagnoses UTI (urinary tract infection) N30.00 Hematuria presence: without hematuria Urinary tract infection type: acute cystitis Constipation K59.00 Constipation type: unspecified constipation type Hyperammonemia E72.20 Adrenal insufficiency E27.40 Diabetes mellitus E11.9 Nonalcoholic fatty liver disease K76.0 Depression F32.9 Dyslipidemia E78.5 Parkinsonism G20 (1) UTI (urinary tract infection) Hematuria presence: without hematuria Urinary tract infection type: acute cystitis Qualified Code(s): N30.00 - Acute cystitis without hematuria (2) Constipation Constipation type: unspecified constipation type Qualified Code(s): K59.00 - Constipation, unspecified
[2021-11-12] MEDS: ERTAPENEM SODIUM 1,000 MG in SYRINGE 0 ML IV SCH (22:15)
[2021-11-12] MEDS: QUEtiapine FUMARATE 25 MG TABLET PO SCH (22:18)
[2021-11-12] MEDS: ACETAMINOPHEN 500 MG TAB PO SCH (22:21)
[2021-11-13] MEDS: LEVOTHYROXINE SODIUM 50 MCG TABLET PO SCH (05:44)
[2021-11-13] MEDS: FEXOFENADINE 60 MG TAB PO SCH (08:30)
[2021-11-13] MEDS: LACTULOSE SYRUP 30 GM/45 ML UDP PO SCH ×4 (08:30→20:36)
[2021-11-13] MEDS: aMILoride HCL 5 MG TAB PO SCH (08:30)
[2021-11-13] MEDS: HYDROCORTISONE 10 MG TAB PO SCH ×2 (08:30→17:49)
[2021-11-13] MEDS: BENZTROPINE MESYLATE 1 MG TAB PO SCH ×3 (08:30→20:39)
[2021-11-13] MEDS: levETIRAcetam 500 MG TAB PO SCH ×2 (08:31→20:40)
[2021-11-13] MEDS: MAGNESIUM OXIDE 400 MG TAB PO SCH ×2 (08:31→20:36)
[2021-11-13] MEDS: ATOGEPANT 30 MG PO SCH (08:31)
[2021-11-13] MEDS: PANTOprazole 40 MG TAB PO SCH (08:31)
[2021-11-13] MEDS: OXcarbazepine 150 MG TABLET PO SCH ×2 (08:31→20:37)
[2021-11-13] MEDS: PRAVASTATIN SOD 20 MG TAB PO SCH (08:32)
[2021-11-13] MEDS: SERTRALINE HCL 50 MG TABLET PO SCH (08:32)
[2021-11-13] MEDS: rifAXIMin 550 MG TABLET PO SCH ×2 (08:32→20:39)
[2021-11-13] MEDS: TOPIRAMATE 100 MG TAB PO SCH ×2 (08:32→20:37)
[2021-11-13] MEDS: rOPINIRole HCL 0.25 MG TABLET PO SCH ×2 (08:32→20:38)
[2021-11-13] MEDS: INSULIN ASPART PER UNIT SC SCH ×4 (08:32→20:35)
[2021-11-13] MEDS: LANTUS PER UNIT CHARGE SQ SCH (08:35)
[2021-11-13] MEDS ORDERED: MECLIZINE 12.5 MG TAB PO PRN (12:36)
[2021-11-13] MEDS ORDERED: MECLIZINE 12.5 MG TAB PO STA (12:36)
--- NOTE | 2021-11-13 12:40 | Hospitalist Progress Note ---
Date of Service November 13, 2021 Assessment & Plan (1) UTI (urinary tract infection): Plan: Uncomplicated UTI. 2nd to ESBL klebsiella. Day #4 of ertapenem 1gm daily. Of note - Ms Munson has grown out ESBL klebsiella on the last 4 urine cultures, and just received 7 day course of ertapenem in September for same pathogen. Chronic Colonization? will cont ertapenem and ask for [facility] ID's input; telehealth consult placed. (2) Constipation: Plan: cont Lactulose QID (3) Hyperammonemia: Plan: No hepatic encephalopathy at this time ammonia level yesterday in the 80s (baseline) Continue Lactulose Continue Rifaximin (4) Adrenal insufficiency: Plan: Suspected diagnosis.She was given stress dosed steroids during her last admission. Blood pressure stable at present. Defer on stress dose steroids now. Continue home hydrocortisone BID Endocrinology followup recommended for repeat testing (5) Diabetes mellitus: Plan: Chronic. A1c was 5.2% in 08/2021. Patient follows with Pickle Sorter - last seen on 11/04/21 Continue lantus 20 units daily Cont novolog SSI (6) Nonalcoholic fatty liver disease: Plan: With cirrhosis. Compensated. EGD in 2020 without esophageal varices. Continue Lactulose Continue Rifaximin Continue Amiloride (7) Depression: Plan: Continue Sertraline 50 mg daily (8) Dyslipidemia: Plan: Cont pravastatin (9) Parkinsonism: Plan: Chronic. Secondary to her seizure and other psychiatric medications. Continue topiramte, ropinirole, oxcarbazepine, Keppra and Benztropine (10) Dizziness: Plan: vertigo-like in description cause? she c/o such during the last admission gets it while sitting in bed med side effect? other? MRI brain 07/2021 without acute pathology consider Ted maneuver by PT for diagnosis meclizine prn (11) Hypomagnesemia: Plan: chronic has improved with once daily amiloride Plan DVT proph - high risk of VTE given largely bed-bound status - start heparin BID and watch platelets carefully updated at bedside await ID consult for abx recs Admission and Anticipated Discharge Date Admission Date: November 09, 2021 Subjective no events overnight at bedside she reports dizziness - described as vertigo sensation eating well - 100% of meals large bowel movement this am no new complaints Review of Systems Review of Systems: gen - no fevers cv - no cp pulm - no dyspnea, no cough GI - no pain Physical Exam Physical Exam: gen - NAD, tardive dyskinesia, awake, alert neck - no JVD mouth - MM slightly dry heart - RRR, s1 s2 lungs - CTA b/l, slightly decreased BS bases abd - soft NT BS+; no apparent ascites ext - no edema, pulses 2+ b/l neuro - neuropathic changes of feet; EOMI of eyes without nystagmus Results & Data Results & Data ([facility]) Vital Signs (Past 12 Hours) Vital Signs Temp Pulse Resp BP Pulse Ox O2 Del Method 11/13/21 11:51 Room Air 11/13/21 08:18 36.7 C 69 16 123/72 95 Room Air PG Care Time/CCT Total # of Minutes Spent Total Time Spent with Patient: Total time spent is greater than 50% in coordination of care (as documented) at patient's floor/unit and/or counseling patient: Coding Level of Care Code 30504 Subseq Hosp Care Lvl 2 Diagnoses UTI (urinary tract infection) N30.00 Hematuria presence: without hematuria Urinary tract infection type: acute cystitis Constipation K59.00 Constipation type: unspecified constipation type Hyperammonemia E72.20 Adrenal insufficiency E27.40 Diabetes mellitus E11.9 Nonalcoholic fatty liver disease K76.0 Depression F32.9 Dyslipidemia E78.5 Parkinsonism G20 Dizziness R42 Hypomagnesemia E83.42 (1) UTI (urinary tract infection) Hematuria presence: without hematuria Urinary tract infection type: acute cystitis Qualified Code(s): N30.00 - Acute cystitis without hematuria (2) Constipation Constipation type: unspecified constipation type Qualified Code(s): K59.00 - Constipation, unspecified
[2021-11-13] MEDS: ADVANCED PROBIOTIC 1250 MG CAPSULE PO SCH (12:50)
[2021-11-13] MEDS: ACETAMINOPHEN 500 MG TAB PO SCH (20:39)
[2021-11-13] MEDS: QUEtiapine FUMARATE 25 MG TABLET PO SCH (20:40)
[2021-11-13] MEDS: HEPARIN 100 UNIT/ML 5ML FLUSH FLUSH PRN (22:39)
[2021-11-13] MEDS: ERTAPENEM SODIUM 1,000 MG in SYRINGE 0 ML IV SCH (22:39)
[2021-11-14] MEDS: LEVOTHYROXINE SODIUM 50 MCG TABLET PO SCH (06:33)
[2021-11-14] MEDS: HEPARIN 100 UNIT/ML 5ML FLUSH FLUSH PRN ×3 (07:36→21:47)
[2021-11-14] MEDS: aMILoride HCL 5 MG TAB PO SCH (07:38)
[2021-11-14] MEDS: SERTRALINE HCL 50 MG TABLET PO SCH (07:39)
[2021-11-14] MEDS: rifAXIMin 550 MG TABLET PO SCH ×2 (07:39→21:34)
[2021-11-14] MEDS: TOPIRAMATE 100 MG TAB PO SCH ×2 (07:39→21:34)
[2021-11-14] MEDS: rOPINIRole HCL 0.25 MG TABLET PO SCH ×2 (07:39→21:33)
[2021-11-14] MEDS: MAGNESIUM OXIDE 400 MG TAB PO SCH ×2 (07:40→21:33)
[2021-11-14] MEDS: LACTULOSE SYRUP 30 GM/45 ML UDP PO SCH ×4 (07:40→21:32)
[2021-11-14] MEDS: PANTOprazole 40 MG TAB PO SCH (07:40)
[2021-11-14] MEDS: levETIRAcetam 500 MG TAB PO SCH ×2 (07:40→21:36)
[2021-11-14] MEDS: OXcarbazepine 150 MG TABLET PO SCH ×2 (07:40→21:38)
[2021-11-14] MEDS: PRAVASTATIN SOD 20 MG TAB PO SCH (07:40)
[2021-11-14] MEDS: ATOGEPANT 30 MG PO SCH (07:41)
[2021-11-14] MEDS: BENZTROPINE MESYLATE 1 MG TAB PO SCH ×3 (07:41→21:34)
[2021-11-14] MEDS: FEXOFENADINE 60 MG TAB PO SCH (07:41)
[2021-11-14] MEDS: HYDROCORTISONE 10 MG TAB PO SCH ×2 (07:41→17:24)
[2021-11-14 07:52] LABS: Hematocrit (blood only) 31.3 % (34.1-44.9); Hemoglobin 10.9 g/dl (12.0-16.0); Mean Platelet Volume 10.5 fL (9.4-12.3); Platelet Count 84 K/uL (130-400); White Blood Count 3.91 K/ul (4.8-10.8)
[2021-11-14 08:19] LABS: Mean Corpuscular Hemoglobin 35.9 pg (25.0-34.0); Mean Corpuscular Hgb Conc 34.8 g/dL (32.0-36.0); RDW Coefficient of Variation 13.1 % (11.5-14.5); RDW Standard Deviation 48.3 fL (36.4-46.3); Red Blood Count 3.04 M/uL (3.93-5.22)
[2021-11-14 08:38] LABS: BUN Creatinine Ratio 19.7 (10-20); Calcium 7.5 mg/dl (8.5-10.1); Creatinine Clr Calc Pharmacy 111.2 ml/min; Est GFR (African American) 118.3 ml/min; Est GFR (Non-African American) 102.1 ml/min; Magnesium 1.6 mg/dl (1.7-2.4); Potassium 4.1 mmol/L (3.5-5.1)
[2021-11-14] MEDS: LANTUS PER UNIT CHARGE SQ SCH (09:44)
[2021-11-14] MEDS: INSULIN ASPART PER UNIT SC SCH ×4 (09:45→21:44)
[2021-11-14] MEDS: HEPARIN SOD 5,000 UNIT/0.5 ML VIAL SQ SCH ×2 (09:47→21:38)
[2021-11-14] MEDS: ADVANCED PROBIOTIC 1250 MG CAPSULE PO SCH (10:48)
[2021-11-14] MEDS: MAGNESIUM SULFATE / D5W 1 GM/100 ML BAG IV SCH ×2 (15:28→17:27)
[2021-11-14] MEDS: ACETAMINOPHEN 500 MG TAB PO SCH (21:35)
[2021-11-14] MEDS: QUEtiapine FUMARATE 25 MG TABLET PO SCH (21:37)
[2021-11-14] MEDS: ERTAPENEM SODIUM 1,000 MG in SYRINGE 0 ML IV SCH (21:47)
--- NOTE | 2021-11-14 22:38 | Hospitalist Progress Note ---
Date of Service November 14, 2021 Assessment & Plan (1) UTI (urinary tract infection): Plan: Uncomplicated UTI. 2nd to ESBL klebsiella. Day #5 of ertapenem 1gm daily. Of note - Ms Munson has grown out ESBL klebsiella on the last 4 urine cultures, and just received 7 day course of ertapenem in September for same pathogen. Chronic Colonization? will cont ertapenem and ask for [facility] ID's input; telehealth consult placed. (2) Constipation: Plan: resolved cont Lactulose QID (3) Hyperammonemia: Plan: No hepatic encephalopathy at this time ammonia level 2 days ago in the 80s (baseline) Continue Lactulose Continue Rifaximin (4) Adrenal insufficiency: Plan: Suspected diagnosis.She was given stress dosed steroids during her last admission. Blood pressure stable at present. Defer on stress dose steroids now. Continue home hydrocortisone BID Endocrinology followup recommended for repeat testing (5) Diabetes mellitus: Plan: Chronic. A1c was 5.2% in 08/2021. Patient follows with Business Center Manager - last seen on 11/04/21 Continue lantus 20 units daily Cont novolog SSI (6) Nonalcoholic fatty liver disease: Plan: With cirrhosis. Compensated. EGD in 2020 without esophageal varices. Continue Lactulose Continue Rifaximin Continue Amiloride (7) Depression: Plan: Continue Sertraline 50 mg daily (8) Dyslipidemia: Plan: Cont pravastatin (9) Parkinsonism: Plan: Chronic. Secondary to her seizure and other psychiatric medications. Continue topiramte, ropinirole, oxcarbazepine, Keppra and Benztropine (10) Dizziness: Plan: vertigo-like in description cause? she c/o such during the last admission gets it while sitting in bed med side effect? other? MRI brain 07/2021 without acute pathology consider Ted maneuver by PT for diagnosis meclizine prn (11) Hypomagnesemia: Plan: chronic had improved with once daily amiloride now down a little today - mag sulfate 2gm x 1, repeat mag level am Plan DVT proph - high risk of VTE given largely bed-bound status - cont heparin BID and watch platelets carefully updated at bedside yesterday await ID consult for abx recs patient states that the braces for her legs recommended by Dr Torres are very expensive, can't afford them will d/w SW tomorrow Admission and Anticipated Discharge Date Admission Date: November 13, 2021 Subjective no new issues overnight eating well asks for pain meds for chronic RLE pain no c/o dizziness today Review of Systems Review of Systems: gen - no fevers GI - no pain or vomiting; had 2 BMs today already CV - no chest pain pulm - no dyspnea Physical Exam Physical Exam: gen - NAD, tardive dyskinesia, awake, alert - looks same as yesterday neck - no JVD mouth - MMM heart - RRR, s1 s2 lungs - CTA b/l abd - soft NT BS+; no apparent ascites ext - no edema, pulses 2+ b/l neuro - neuropathic changes of feet Results & Data Results & Data ([facility]) Vital Signs (Past 12 Hours) Vital Signs Temp Pulse Resp BP BP Pulse Ox O2 Del Method 11/14/21 21:50 36.9 C 73 16 152/77 H 94 11/14/21 15:14 36.8 C 68 22 143/83 H 95 Room Air Laboratory Results Laboratory Results - last 24 hr 11/14/21 11/14/21 11/14/21 07:31 07:31 08:11 WBC 3.91 L RBC 3.04 L Hgb 10.9 L Hct 31.3 L MCV 103.0 H MCH 35.9 H MCHC 34.8 RDW Std Deviation 48.3 H RDW Coeff of Irina 13.1 Plt Count 84 L MPV 10.5 Sodium 138 Potassium 4.1 Chloride 111 H Carbon Dioxide 23 Anion Gap 4 BUN 12 Creatinine 0.61 Est Cr Clr Drug Dosing 111.2 Est GFR ( Amer) 118.3 Est GFR (Non-Af Amer) 102.1 BUN/Creatinine Ratio 19.7 Glucose 164 H POC Glucose 170 H Calcium 7.5 L Magnesium 1.6 L 11/14/21 11/14/21 11/14/21 12:07 17:21 21:32 WBC RBC Hgb Hct MCV MCH MCHC RDW Std Deviation RDW Coeff of Irina Plt Count MPV Sodium Potassium Chloride Carbon Dioxide Anion Gap BUN Creatinine Est Cr Clr Drug Dosing Est GFR ( Amer) Est GFR (Non-Af Amer) BUN/Creatinine Ratio Glucose POC Glucose 163 H 193 H 217 H Calcium Magnesium PG Care Time/CCT Total # of Minutes Spent Total Time Spent with Patient: Total time spent is greater than 50% in coordination of care (as documented) at patient's floor/unit and/or counseling patient: Coding Level of Care Code 55702 Subseq Hosp Care Lvl 2 Diagnoses UTI (urinary tract infection) N30.00 Hematuria presence: without hematuria Urinary tract infection type: acute cystitis Constipation K59.00 Constipation type: unspecified constipation type Hyperammonemia E72.20 Adrenal insufficiency E27.40 Diabetes mellitus E11.9 Nonalcoholic fatty liver disease K76.0 Depression F32.9 Dyslipidemia E78.5 Parkinsonism G20 Dizziness R42 Hypomagnesemia E83.42 (1) UTI (urinary tract infection) Hematuria presence: without hematuria Urinary tract infection type: acute cystitis Qualified Code(s): N30.00 - Acute cystitis without hematuria (2) Constipation Constipation type: unspecified constipation type Qualified Code(s): K59.00 - Constipation, unspecified
[2021-11-15] MEDS: LEVOTHYROXINE SODIUM 50 MCG TABLET PO SCH (05:23)
[2021-11-15 08:56] LABS: Calcium 7.8 mg/dl (8.5-10.1); Creatinine Clr Calc Pharmacy 90.4 ml/min; Est GFR (Non-African American) 89.7 ml/min; Magnesium 1.8 mg/dl (1.7-2.4); Potassium 4.1 mmol/L (3.5-5.1)
[2021-11-15] MEDS ORDERED: LANTUS PER UNIT CHARGE SQ SCH (09:00)
[2021-11-15] MEDS: INSULIN ASPART PER UNIT SC SCH ×4 (09:35→21:13)
[2021-11-15] MEDS: HEPARIN SOD 5,000 UNIT/0.5 ML VIAL SQ SCH ×2 (09:43→21:24)
[2021-11-15] MEDS: BENZTROPINE MESYLATE 1 MG TAB PO SCH ×3 (09:43→21:20)
[2021-11-15] MEDS: rifAXIMin 550 MG TABLET PO SCH ×2 (09:43→21:20)
[2021-11-15] MEDS: ATOGEPANT 30 MG PO SCH (09:43)
[2021-11-15] MEDS: levETIRAcetam 500 MG TAB PO SCH ×2 (09:43→21:17)
[2021-11-15] MEDS: MAGNESIUM OXIDE 400 MG TAB PO SCH ×2 (09:43→21:18)
[2021-11-15] MEDS: TOPIRAMATE 100 MG TAB PO SCH ×2 (09:43→21:20)
[2021-11-15] MEDS: LACTULOSE SYRUP 30 GM/45 ML UDP PO SCH ×4 (09:43→21:21)
[2021-11-15] MEDS: OXcarbazepine 150 MG TABLET PO SCH ×2 (09:43→21:20)
[2021-11-15] MEDS: aMILoride HCL 5 MG TAB PO SCH (09:44)
[2021-11-15] MEDS: FEXOFENADINE 60 MG TAB PO SCH (09:44)
[2021-11-15] MEDS: rOPINIRole HCL 0.25 MG TABLET PO SCH ×2 (09:44→21:20)
[2021-11-15] MEDS: PRAVASTATIN SOD 20 MG TAB PO SCH (09:44)
[2021-11-15] MEDS: HYDROCORTISONE 10 MG TAB PO SCH ×2 (09:44→18:12)
[2021-11-15] MEDS: PANTOprazole 40 MG TAB PO SCH (09:44)
[2021-11-15] MEDS: SERTRALINE HCL 50 MG TABLET PO SCH (09:44)
[2021-11-15] MEDS: ADVANCED PROBIOTIC 1250 MG CAPSULE PO SCH (12:24)
--- NOTE | 2021-11-15 21:17 | Hospitalist Progress Note ---
Date of Service November 15, 2021 Assessment & Plan (1) UTI (urinary tract infection): Plan: Uncomplicated UTI. 2nd to ESBL klebsiella. Day #6 of ertapenem 1gm daily. Of note - Ms Munson has grown out ESBL klebsiella on the last 5 urine cultures (twice in June, once in July, once in September, and again this admission), and just received 7 day course of Ertapenem in September for same pathogen. Chronic Colonization? CT a/p September and October with tiny, nonobstructing kidney stones on left (<1mm each). Otherwise urinary tract without pathology. Check a PVR to ensure she is not having urinary retention. will cont ertapenem and ask for [employer] ID's input; telehealth consult placed. (2) Constipation: Plan: resolved cont Lactulose QID (3) Hyperammonemia: Plan: No hepatic encephalopathy at this time ammonia level 2 days ago in the 80s (baseline) Continue Lactulose Continue Rifaximin (4) Adrenal insufficiency: Plan: Suspected diagnosis.She was given stress dosed steroids during her last admission. Blood pressure stable at present. Defer on stress dose steroids now. Continue home hydrocortisone BID Endocrinology followup recommended for repeat testing (5) Diabetes mellitus: Plan: Chronic. A1c was 5.2% in 08/2021. Patient follows with Auto Mechanics Teacher - last seen on 11/04/21 Continue lantus but increase to 24 units daily Cont novolog SSI (6) Nonalcoholic fatty liver disease: Plan: With cirrhosis. Compensated. EGD in 2020 without esophageal varices. Continue Lactulose Continue Rifaximin Continue Amiloride (7) Depression: Plan: Continue Sertraline 50 mg daily (8) Dyslipidemia: Plan: Cont pravastatin (9) Parkinsonism: Plan: Chronic. Secondary to her seizure and other psychiatric medications. Continue topiramte, ropinirole, oxcarbazepine, Keppra and Benztropine (10) Dizziness: Plan: vertigo-like in description cause? she c/o such during the last admission gets it while sitting in bed med side effect? other? MRI brain 07/2021 without acute pathology consider Ted maneuver by PT for diagnosis meclizine prn (11) Hypomagnesemia: Plan: chronic had improved with once daily amiloride periodically this admission needing IV mag level today wnl at 1.8 Plan DVT proph - high risk of VTE given largely bed-bound status - cont heparin BID and watch platelets carefully updated at bedside today await ID consult for abx recs patient states that the braces for her legs recommended by Dr Torres are very expensive, can't afford them I did discuss this with the case management dept today Admission and Anticipated Discharge Date Admission Date: November 13, 2021 Subjective patient w/o new complaints again, like previous visits, wants to talk about the braces for her legs that Dr Torres had recommended at an office visit earlier this summer she takes about 2-3 steps with significant assistance from her at home does not walk independently, and only does transfers 2-3x's a day eating well Review of Systems Review of Systems: gen - no fevers cv - no chest pain pulm - no dyspnea or cough GI - no nausea, vomiting; had another bowel movement today Physical Exam Physical Exam: gen - NAD, tardive dyskinesia (baseline), awake, alert; watching Jeopardy on TV neck - no JVD mouth - MMM heart - RRR, s1 s2, no murmur lungs - CTA b/l (except scant dry rales bases) abd - soft NT BS+; no apparent ascites; no HSM ext - no edema, pulses 2+ b/l neuro - neuropathic changes of feet (Chronic) Results & Data Results & Data ([facility]) Vital Signs (Past 12 Hours) Vital Signs Temp Pulse Resp BP Pulse Ox O2 Del Method 11/15/21 15:21 37.4 C 79 18 126/79 95 Room Air 11/15/21 11:04 Room Air Laboratory Results Laboratory Results - last 24 hr 11/14/21 11/15/21 11/15/21 21:32 08:01 08:24 Sodium 140 Potassium 4.1 Chloride 110 H Carbon Dioxide 24 Anion Gap 6 BUN 9 Creatinine 0.75 Est Cr Clr Drug Dosing 90.4 Est GFR ( Amer) 104.0 Est GFR (Non-Af Amer) 89.7 BUN/Creatinine Ratio 12.0 Glucose 140 H POC Glucose 217 H 160 H Calcium 7.8 L Magnesium 1.8 11/15/21 11/15/21 11/15/21 12:08 17:22 20:29 Sodium Potassium Chloride Carbon Dioxide Anion Gap BUN Creatinine Est Cr Clr Drug Dosing Est GFR ( Amer) Est GFR (Non-Af Amer) BUN/Creatinine Ratio Glucose POC Glucose 196 H 194 H 229 H Calcium Magnesium PG Care Time/CCT Total # of Minutes Spent Total Time Spent with Patient: Total time spent is greater than 50% in coordination of care (as documented) at patient's floor/unit and/or counseling patient: Coding Level of Care Code 39467 Subseq Hosp Care Lvl 2 Diagnoses UTI (urinary tract infection) N30.00 Hematuria presence: without hematuria Urinary tract infection type: acute cystitis Constipation K59.00 Constipation type: unspecified constipation type Hyperammonemia E72.20 Adrenal insufficiency E27.40 Diabetes mellitus E11.9 Nonalcoholic fatty liver disease K76.0 Depression F32.9 Dyslipidemia E78.5 Parkinsonism G20 Dizziness R42 Hypomagnesemia E83.42 (1) UTI (urinary tract infection) Hematuria presence: without hematuria Urinary tract infection type: acute cystitis Qualified Code(s): N30.00 - Acute cystitis without hematuria (2) Constipation Constipation type: unspecified constipation type Qualified Code(s): K59.00 - Constipation, unspecified
[2021-11-15] MEDS: QUEtiapine FUMARATE 25 MG TABLET PO SCH (21:20)
[2021-11-15] MEDS: ACETAMINOPHEN 500 MG TAB PO SCH (21:21)
[2021-11-15] MEDS: NYSTATIN SUSP 500,000 U/5 ML UDC PO SCH (22:29)
[2021-11-15] MEDS: DICLOFENAC SOD 1% GEL 100 GM TUBE EXT SCH (22:30)
[2021-11-16] MEDS: LEVOTHYROXINE SODIUM 50 MCG TABLET PO SCH (06:15)
[2021-11-16] MEDS: SERTRALINE HCL 50 MG TABLET PO SCH (08:24)
[2021-11-16] MEDS: FEXOFENADINE 60 MG TAB PO SCH (08:24)
[2021-11-16] MEDS: rifAXIMin 550 MG TABLET PO SCH ×2 (08:24→20:06)
[2021-11-16] MEDS: OXcarbazepine 150 MG TABLET PO SCH ×2 (08:25→20:04)
[2021-11-16] MEDS: PRAVASTATIN SOD 20 MG TAB PO SCH (08:25)
[2021-11-16] MEDS: rOPINIRole HCL 0.25 MG TABLET PO SCH ×2 (08:26→20:06)
[2021-11-16] MEDS: MAGNESIUM OXIDE 400 MG TAB PO SCH ×2 (08:26→20:04)
[2021-11-16] MEDS: BENZTROPINE MESYLATE 1 MG TAB PO SCH ×3 (08:26→20:03)
[2021-11-16] MEDS: PANTOprazole 40 MG TAB PO SCH (08:26)
[2021-11-16] MEDS: HYDROCORTISONE 10 MG TAB PO SCH ×2 (08:27→16:41)
[2021-11-16] MEDS: levETIRAcetam 500 MG TAB PO SCH ×2 (08:27→20:03)
[2021-11-16] MEDS: TOPIRAMATE 100 MG TAB PO SCH ×2 (08:29→20:06)
[2021-11-16] MEDS: NYSTATIN SUSP 500,000 U/5 ML UDC PO SCH ×4 (08:29→20:06)
[2021-11-16] MEDS: LACTULOSE SYRUP 30 GM/45 ML UDP PO SCH ×4 (08:29→20:07)
[2021-11-16] MEDS: ATOGEPANT 30 MG PO SCH (08:31)
[2021-11-16] MEDS: DICLOFENAC SOD 1% GEL 100 GM TUBE EXT SCH ×4 (08:32→20:07)
[2021-11-16] MEDS: aMILoride HCL 5 MG TAB PO SCH (08:33)
[2021-11-16] MEDS: HEPARIN SOD 5,000 UNIT/0.5 ML VIAL SQ SCH ×2 (08:41→20:15)
[2021-11-16] MEDS: INSULIN ASPART PER UNIT SC SCH ×4 (09:23→21:16)
[2021-11-16] MEDS: LANTUS PER UNIT CHARGE SQ SCH (09:23)
[2021-11-16] MEDS: ADVANCED PROBIOTIC 1250 MG CAPSULE PO SCH (13:03)
[2021-11-16] MEDS: ACETAMINOPHEN 500 MG TAB PO SCH (20:02)
[2021-11-16] MEDS: QUEtiapine FUMARATE 25 MG TABLET PO SCH (20:05)
--- NOTE | 2021-11-16 21:49 | Hospitalist Progress Note ---
Date of Service November 16, 2021 Assessment & Plan (1) UTI (urinary tract infection): Plan: Uncomplicated UTI. 2nd to ESBL klebsiella. Day #7 of ertapenem 1gm daily. Of note - Ms Munson has grown out ESBL klebsiella on the last 5 urine cultures (twice in June, once in July, once in September, and again this admission), and just received 7 day course of Ertapenem in September for same pathogen. Chronic Colonization? CT a/p September and October with tiny, nonobstructing kidney stones on left (<1mm each). Otherwise urinary tract without pathology. Checked a PVR bladder scan today - 5cc. consider repeat u/a and urine cx for test of cure this weekend. will cont ertapenem and ask for [employer] ID's input; telehealth consult placed. (2) Constipation: Plan: resolved cont Lactulose QID (3) Hyperammonemia: Plan: No hepatic encephalopathy at this time last ammonia level this week - in the 80s (baseline) Continue Lactulose Continue Rifaximin (4) Adrenal insufficiency: Plan: Suspected diagnosis.She was given stress dosed steroids during her last admission. Blood pressure stable at present. Defer on stress dose steroids now. Continue home hydrocortisone BID Endocrinology followup recommended for repeat testing (5) Diabetes mellitus: Plan: Chronic. A1c was 5.2% in 08/2021. Patient follows with Personal Attendant - last seen on 11/04/21 Continue lantus but increase to 24 units daily Cont novolog SSI (6) Nonalcoholic fatty liver disease: Plan: With cirrhosis. Compensated. EGD in 2020 without esophageal varices. Continue Lactulose Continue Rifaximin Continue Amiloride (7) Depression: Plan: Continue Sertraline 50 mg daily (8) Dyslipidemia: Plan: Cont pravastatin (9) Parkinsonism: Plan: Chronic. Secondary to her seizure and other psychiatric medications. Continue topiramte, ropinirole, oxcarbazepine, Keppra and Benztropine (10) Dizziness: Plan: has not mentioned this in several days vertigo-like in description cause? MRI brain 07/2021 without acute pathology consider Ted maneuver by PT for diagnosis if it persists or worsens meclizine prn (11) Hypomagnesemia: Plan: stable cont amiloride Plan DVT proph - high risk of VTE given largely bed-bound status - cont heparin BID and watch platelets carefully patient has been refusing it - I counseled her she is at high-risk of DVT given her cirrhosis, largely bed-bound status, frequent hospital stays, etc await ID consult for abx recs dispo - home with Admission and Anticipated Discharge Date Admission Date: November 13, 2021 Subjective no issues today again brings up her issues with her feet and her last office visit with Dr Torres (surgery vs braces discussed) did not have ID consult yet eating fine drinking ok had at least 2 BMs today no abd pain no dyspnea Review of Systems Review of Systems: gen - no fevers cv - no cp, no orthopnea pulm - no cough, no dyspnea GI - no vomiting ENT - mouth feels better s/p nystatin Physical Exam Physical Exam: gen - NAD, tardive dyskinesia (baseline), awake, alert; watching TV - looks similar to yesterday neck - no JVD mouth - MMM heart - RRR, s1 s2, no murmur lungs - CTA b/l ( abd - soft NT BS+; no apparent ascites; no HSM ext - no edema, pulses 2+ b/l neuro - chronic neuropathic changes of feet psych - no confusion, no signs of hepatic encephalopathy Results & Data Results & Data ([facility]) Vital Signs (Past 12 Hours) Vital Signs Temp Pulse Resp BP Pulse Ox O2 Del Method 11/16/21 21:37 37.2 C 73 18 129/78 99 Room Air 11/16/21 21:19 Room Air 11/16/21 15:17 37.1 C 70 16 135/76 92 Room Air Laboratory Results Laboratory Results - last 24 hr 11/16/21 11/16/21 11/16/21 08:02 12:05 17:09 POC Glucose 188 H 177 H 193 H 11/16/21 20:35 POC Glucose 202 H PG Care Time/CCT Total # of Minutes Spent Total Time Spent with Patient: Total time spent is greater than 50% in coordination of care (as documented) at patient's floor/unit and/or counseling patient: Coding Level of Care Code 64914 Subseq Hosp Care Lvl 2 Diagnoses UTI (urinary tract infection) N30.00 Hematuria presence: without hematuria Urinary tract infection type: acute cystitis Constipation K59.00 Constipation type: unspecified constipation type Hyperammonemia E72.20 Adrenal insufficiency E27.40 Diabetes mellitus E11.9 Nonalcoholic fatty liver disease K76.0 Depression F32.9 Dyslipidemia E78.5 Parkinsonism G20 Dizziness R42 Hypomagnesemia E83.42 (1) UTI (urinary tract infection) Hematuria presence: without hematuria Urinary tract infection type: acute cystitis Qualified Code(s): N30.00 - Acute cystitis without hematuria (2) Constipation Constipation type: unspecified constipation type Qualified Code(s): K59.00 - Constipation, unspecified
[2021-11-17] MEDS: LEVOTHYROXINE SODIUM 50 MCG TABLET PO SCH (06:18)
[2021-11-17] MEDS ORDERED: HYDROCODONE/ACETAMOPHEN 5/325MG TAB PO ONE (08:48)
[2021-11-17] MEDS: BENZTROPINE MESYLATE 1 MG TAB PO SCH ×3 (08:51→20:50)
[2021-11-17] MEDS: rifAXIMin 550 MG TABLET PO SCH ×2 (08:54→20:50)
[2021-11-17] MEDS: MAGNESIUM OXIDE 400 MG TAB PO SCH ×2 (08:54→20:47)
[2021-11-17] MEDS: levETIRAcetam 500 MG TAB PO SCH ×2 (08:54→20:47)
[2021-11-17] MEDS: SERTRALINE HCL 50 MG TABLET PO SCH (08:55)
[2021-11-17] MEDS: OXcarbazepine 150 MG TABLET PO SCH ×2 (08:55→20:49)
[2021-11-17] MEDS: FEXOFENADINE 60 MG TAB PO SCH (08:56)
[2021-11-17] MEDS: HYDROCORTISONE 10 MG TAB PO SCH ×2 (08:56→16:39)
[2021-11-17] MEDS: rOPINIRole HCL 0.25 MG TABLET PO SCH ×2 (08:57→20:50)
[2021-11-17] MEDS: ATOGEPANT 30 MG PO SCH (08:57)
[2021-11-17] MEDS: aMILoride HCL 5 MG TAB PO SCH (08:57)
[2021-11-17] MEDS: PANTOprazole 40 MG TAB PO SCH (08:58)
[2021-11-17] MEDS: DICLOFENAC SOD 1% GEL 100 GM TUBE EXT SCH ×4 (08:58→20:46)
[2021-11-17] MEDS: TOPIRAMATE 100 MG TAB PO SCH ×2 (08:58→20:50)
[2021-11-17] MEDS: NYSTATIN SUSP 500,000 U/5 ML UDC PO SCH ×4 (08:59→20:48)
[2021-11-17] MEDS: LACTULOSE SYRUP 30 GM/45 ML UDP PO SCH ×4 (08:59→20:45)
[2021-11-17] MEDS: HEPARIN SOD 5,000 UNIT/0.5 ML VIAL SQ SCH ×2 (09:00→20:46)
[2021-11-17] MEDS: PRAVASTATIN SOD 20 MG TAB PO SCH (09:07)
[2021-11-17] MEDS: LANTUS PER UNIT CHARGE SQ SCH (09:14)
[2021-11-17] MEDS: INSULIN ASPART PER UNIT SC SCH ×4 (09:15→20:44)
[2021-11-17] MEDS: HEPARIN 100 UNIT/ML 5ML FLUSH FLUSH PRN (09:57)
[2021-11-17] MEDS: ADVANCED PROBIOTIC 1250 MG CAPSULE PO SCH (11:56)
[2021-11-17] MEDS ORDERED: PROMETHAZINE HCL 6.25 MG in SODIUM CHLORIDE 0.9% 50 ML IV ONE (18:45)
--- NOTE | 2021-11-17 20:10 | XRay Report ---
SINGLE VIEW CHEST CLINICAL HISTORY: Cough. FINDINGS: 2 AP, portable, supine chest radiographs are compared to study dated 09/22/2021. The examina tion is degraded by portable technique and patient rotation. A right internal jugular central venous infusion port is unchanged in position. The heart is enlarged. There is mild pulmonary vascular conge stion. There are low lung volumes with bibasilar atelectasis. No airspace consolidation or large pleu ral effusion is identified. No pneumothorax is seen. The skeletal structures are osteopenic. The bony thorax is grossly intact. Degenerative change is noted in the shoulders. Cholecystectomy clips are s een in the right upper quadrant. IMPRESSION: 1. Cardiomegaly with mild pulmonary vascular congestion. 2. No airspace consolidation or large pleural effusion is identified. ACT 112: Negative or not required by law. Electronically signed by: Aiden Randolph M.D. 11/17/2021 8:09 PM
--- NOTE | 2021-11-17 20:13 | Hospitalist Progress Note ---
Date of Service November 17, 2021 Assessment & Plan (1) UTI (urinary tract infection): Plan: Uncomplicated UTI. 2nd to ESBL klebsiella. Day #8 of ertapenem 1gm daily. Of note - Ms Munson has grown out ESBL klebsiella on the last 5 urine cultures (twice in June, once in July, once in September, and again this admission), and just received 7 day course of Ertapenem in September for same pathogen. Chronic Colonization? CT a/p September and October with tiny, nonobstructing kidney stones on left (<1mm each). Otherwise urinary tract without pathology. Checked a PVR bladder scan yesterday - 5cc. Right before I left her room she stated she was having dysuria - thus, will repe at an I/O cath for u/a and urine culture for test of cure and to ensure no other pathogens brewing. will cont ertapenem x 10 days and ask for [employer] ID's input; telehealth consult pending. (2) Constipation: Plan: resolved cont Lactulose QID asked staff to continue the lactulose as we need at least 3 BMs/day to keep ammonia down (3) Hyperammonemia: Plan: No hepatic encephalopathy at this time last ammonia level this week - in the 80s (baseline) Continue Lactulose Continue Rifaximin (4) Adrenal insufficiency: Plan: Suspected diagnosis.She was given stress dosed steroids during her last admission. Blood pressure stable at present. Defer on stress dose steroids now. Continue home hydrocortisone BID Endocrinology followup recommended for repeat testing (5) Diabetes mellitus: Plan: Chronic. A1c was 5.2% in 08/2021. Patient follows with Sl[employer] Operator - last seen on 11/04/21 Continue lantus but increase to 26 units daily adjust novolog (6) Nonalcoholic fatty liver disease: Plan: With cirrhosis. Compensated. EGD in 2020 without esophageal varices. Continue Lactulose Continue Rifaximin Continue Amiloride (7) Depression: Plan: Continue Sertraline 50 mg daily (8) Dyslipidemia: Plan: Cont pravastatin (9) Parkinsonism: Plan: Chronic. Secondary to her seizure and other psychiatric medications. Continue topiramte, ropinirole, oxcarbazepine, Keppra and Benztropine (10) Dizziness: Plan: has not mentioned this in several days vertigo-like in description cause? MRI brain 07/2021 without acute pathology consider Ted maneuver by PT for diagnosis if it persists or worsens meclizine prn (11) Hypomagnesemia: Plan: stable cont amiloride repeat mag level am Plan DVT proph - high risk of VTE given largely bed-bound status - cont heparin BID and watch platelets carefully patient has been refusing it - I previously counseled her she is at high-risk of DVT given her cirrhosis, largely bed-bound status, frequent hospital stays, etc check cbc in am to ensure platelets are stable cough - check pCXR today await ID consult for abx recs dispo - home with Admission and Anticipated Discharge Date Admission Date: November 13, 2021 Subjective by report had copious stools yesterday evening her lactulose was held last pm this am she c/o abd pain - staff notified me - gave norco x 1 during the visit she c/o cough - although states he had been with her for several hours and she hadn't coughed while he was present she asked for pain meds for chronic RLE pain she asked for anti-nausea meds despite all of the above she ate well throughout the day Review of Systems Review of Systems: gen - no fever cv - no cp pulm - cough; no dyspnea GI - by the time of my bedside visit no pain but having nausea Physical Exam Physical Exam: gen - NAD, tardive dyskinesia (baseline), awake, alert; watching TV with neck - no JVD mouth - MMM heart - RRR, s1 s2, no murmur lungs - mild dry rales bases, otherwise CTA B/l abd - soft NT BS+; no apparent ascites; no HSM ext - trace edema b/l, pulses 2+ b/l neuro - chronic neuropathic changes of feet psych - no confusion, no signs of hepatic encephalopathy Results & Data Results & Data ([facility]) Vital Signs (Past 12 Hours) Vital Signs Temp Pulse Resp BP BP Pulse Ox O2 Del Method 11/17/21 15:06 36.7 C 71 16 130/80 95 Room Air 11/17/21 08:50 136/69 Laboratory Results Laboratory Results - last 24 hr 11/16/21 11/17/21 11/17/21 20:35 08:07 12:05 POC Glucose 202 H 169 H 178 H 11/17/21 17:05 POC Glucose 215 H PG Care Time/CCT Total # of Minutes Spent Total Time Spent with Patient: Total time spent is greater than 50% in coordination of care (as documented) at patient's floor/unit and/or counseling patient: Coding Level of Care Code 49709 Subseq Hosp Care Lvl 2 Diagnoses UTI (urinary tract infection) N30.00 Hematuria presence: without hematuria Urinary tract infection type: acute cystitis Constipation K59.00 Constipation type: unspecified constipation type Hyperammonemia E72.20 Adrenal insufficiency E27.40 Diabetes mellitus E11.9 Nonalcoholic fatty liver disease K76.0 Depression F32.9 Dyslipidemia E78.5 Parkinsonism G20 Dizziness R42 Hypomagnesemia E83.42 (1) UTI (urinary tract infection) Hematuria presence: without hematuria Urinary tract infection type: acute cystitis Qualified Code(s): N30.00 - Acute cystitis without hematuria (2) Constipation Constipation type: unspecified constipation type Qualified Code(s): K59.00 - Constipation, unspecified
[2021-11-17] MEDS: ACETAMINOPHEN 500 MG TAB PO SCH (20:46)
[2021-11-17] MEDS: QUEtiapine FUMARATE 25 MG TABLET PO SCH (20:49)
[2021-11-17 22:12] LABS: Appearance Urine Clear (Clear); Bacteria Urine Automated 2+ (Negative); Bilirubin Urine Negative (Negative); Blood Urine Negative (Negative); Cast Urine Automated 0 /lpf (0-5); Color Urine Yellow; Glucose Urine UA Negative (Negative); Ketones Urine Negative (Negative); Leukocyte Esterase Urine Trace (Negative); Nitrite Urine Negative (Negative); Protein Urine Negative (Negative); RBC Urine Automated 0-4 /hpf (0-4); Specific Gravity Urine 1.012 (1.000-1.030); Urobilinogen Urine Negative (Negative); pH Urine 6.5 (4.5-7.5)
[2021-11-18] MEDS ORDERED: COUGH DROP (SUGAR FREE) LOZ 24 LOZ/1 BOX BUCCAL ONE (05:36)
[2021-11-18] MEDS: LEVOTHYROXINE SODIUM 50 MCG TABLET PO SCH (05:38)
[2021-11-18] MEDS ORDERED: FUROSEMIDE 20 MG TAB PO ONE (07:39)
[2021-11-18] MEDS: HEPARIN 100 UNIT/ML 5ML FLUSH FLUSH PRN ×2 (08:22→17:03)
[2021-11-18 08:42] LABS: Hematocrit (blood only) 30.7 % (34.1-44.9); Hemoglobin 10.6 g/dl (12.0-16.0); Mean Platelet Volume 10.2 fL (9.4-12.3); Platelet Count 71 K/uL (130-400); White Blood Count 4.29 K/ul (4.8-10.8)
[2021-11-18] MEDS ORDERED: LANTUS PER UNIT CHARGE SQ SCH (09:00)
[2021-11-18 09:02] LABS: Mean Corpuscular Hemoglobin 36.3 pg (25.0-34.0); Mean Corpuscular Hgb Conc 34.5 g/dL (32.0-36.0); Mean Corpuscular Volume 105.1 fL (80.0-100.0); RDW Coefficient of Variation 13.2 % (11.5-14.5); Red Blood Count 2.92 M/uL (3.93-5.22)
[2021-11-18 09:05] LABS: BUN Creatinine Ratio 14.8 (10-20); Calcium 7.7 mg/dl (8.5-10.1); Creatinine Clr Calc Pharmacy 111.2 ml/min; Est GFR (African American) 118.3 ml/min; Est GFR (Non-African American) 102.1 ml/min; Magnesium 1.5 mg/dl (1.7-2.4)
[2021-11-18] MEDS: HYDROCORTISONE 10 MG TAB PO SCH ×2 (09:05→17:06)
[2021-11-18] MEDS: SERTRALINE HCL 50 MG TABLET PO SCH (09:05)
[2021-11-18] MEDS: FEXOFENADINE 60 MG TAB PO SCH (09:06)
[2021-11-18] MEDS: aMILoride HCL 5 MG TAB PO SCH (09:06)
[2021-11-18] MEDS: PANTOprazole 40 MG TAB PO SCH (09:07)
[2021-11-18] MEDS: OXcarbazepine 150 MG TABLET PO SCH ×2 (09:07→20:51)
[2021-11-18] MEDS: PRAVASTATIN SOD 20 MG TAB PO SCH (09:07)
[2021-11-18] MEDS: BENZTROPINE MESYLATE 1 MG TAB PO SCH ×3 (09:08→20:45)
[2021-11-18] MEDS: NYSTATIN SUSP 500,000 U/5 ML UDC PO SCH ×4 (09:08→20:47)
[2021-11-18] MEDS: rifAXIMin 550 MG TABLET PO SCH ×2 (09:09→20:51)
[2021-11-18] MEDS: rOPINIRole HCL 0.25 MG TABLET PO SCH ×2 (09:09→20:51)
[2021-11-18] MEDS: levETIRAcetam 500 MG TAB PO SCH ×2 (09:09→20:50)
[2021-11-18] MEDS: HEPARIN SOD 5,000 UNIT/0.5 ML VIAL SQ SCH ×2 (09:10→20:49)
[2021-11-18] MEDS: ATOGEPANT 30 MG PO SCH (09:10)
[2021-11-18] MEDS: LACTULOSE SYRUP 30 GM/45 ML UDP PO SCH ×4 (09:10→20:44)
[2021-11-18] MEDS: DICLOFENAC SOD 1% GEL 100 GM TUBE EXT SCH ×4 (09:11→20:44)
[2021-11-18] MEDS: MAGNESIUM OXIDE 400 MG TAB PO SCH ×2 (09:12→20:50)
[2021-11-18] MEDS: TOPIRAMATE 100 MG TAB PO SCH ×2 (09:12→20:52)
[2021-11-18] MEDS: INSULIN ASPART PER UNIT SC SCH ×4 (09:31→21:00)
[2021-11-18] MEDS: MAGNESIUM SULFATE / D5W 1 GM/100 ML BAG IV SCH ×3 (10:55→14:46)
[2021-11-18] MEDS: ADVANCED PROBIOTIC 1250 MG CAPSULE PO SCH (11:50)
[2021-11-18] MEDS: ACETAMINOPHEN 500 MG TAB PO SCH (20:46)
[2021-11-18] MEDS: QUEtiapine FUMARATE 25 MG TABLET PO SCH (20:52)
--- NOTE | 2021-11-18 21:04 | Hospitalist Progress Note ---
Date of Service November 18, 2021 Assessment & Plan (1) UTI (urinary tract infection): Plan: Uncomplicated UTI. 2nd to ESBL klebsiella. Completed 7 day course of IV ertapenem. Repeat u/a and urine cx for test of cure - still with increased WBCs, 2+ bacteria. pinpoint growth on culture. would resume the ertapenem until the culture has returned. Of note - Ms Munson has grown out ESBL klebsiella on the last 5 urine cultures (twice in June, once in July, once in September, and again this admission), and just received 7 day course of Ertapenem in September for same pathogen. Chronic Colonization? CT a/p September and October with tiny, nonobstructing kidney stones on left (<1mm each). Otherwise urinary tract without pathology. Checked a PVR bladder scan - 5cc. [employer] ID consultation pending for recs re: this recurrent UTI with ESBL Klebsiella (2) Constipation: Plan: resolved cont Lactulose QID asked staff to continue the lactulose as we need at least 3 BMs/day to keep ammonia down (3) Hyperammonemia: Plan: No hepatic encephalopathy at this time last ammonia level this week - in the 80s (baseline) Continue Lactulose Continue Rifaximin (4) Adrenal insufficiency: Plan: Suspected diagnosis.She was given stress dosed steroids during her last admission. Blood pressure stable at present. Defer on stress dose steroids now. Continue home hydrocortisone BID Endocrinology followup recommended for repeat testing (5) Diabetes mellitus: Plan: Chronic. A1c was 5.2% in 08/2021. Patient follows with Lead Sql Developer - last seen on 11/04/21 Continue lantus but increase to 26 units daily adjust novolog (6) Nonalcoholic fatty liver disease: Plan: With cirrhosis. Compensated. EGD in 2020 without esophageal varices. Continue Lactulose Continue Rifaximin Continue Amiloride (7) Depression: Plan: Continue Sertraline 50 mg daily (8) Dyslipidemia: Plan: Cont pravastatin (9) Parkinsonism: Plan: Chronic. Secondary to her seizure and other psychiatric medications. Continue topiramte, ropinirole, oxcarbazepine, Keppra and Benztropine (10) Dizziness: Plan: has not mentioned this in several days vertigo-like in description cause? MRI brain 07/2021 without acute pathology consider Ted maneuver by PT for diagnosis if it persists or worsens meclizine prn (11) Hypomagnesemia: Plan: 2nd to diarrhea, etc level 1.5 today -- give mag sulfate replacement, repeat mag level AM cont amiloride (12) Femur fracture, right: Plan: h/o distal femur Fx s/p ORIF, then repeat surgery to remove hardware last surgery completed at [facility] [place] chronic pain related to this prior fracture & surgery check x-rays to ensure nothing new is going on with the distal femur in terms of pain control we are very limited in what we can give due to advanced cirrhosis, psych history, concern for constipation and development of hepatic encephalopathy, etc will d/w pain management if any other options available tylenol prn voltaren gel qid Plan DVT proph - high risk of VTE given largely bed-bound status - cont heparin BID and watch platelets carefully patient has been refusing it - I previously counseled her she is at high-risk of DVT given her cirrhosis, largely bed-bound status, frequent hospital stays, etc she has been more compliant since this discussion although not overtly volume overloaded or with clinical pulm edema - did give lasix PO x 1 this am due to her cough and cxr findings await ID consult for abx recs dispo - home with Admission and Anticipated Discharge Date Admission Date: November 13, 2021 Subjective patient with uneventful day had 1 BM eating well (100% meals) c/o right femur pain - chronic - very adamant that we give her pain meds for this long discussion ensued re: this issue cough unchanged (I have not heard her cough at all over the last week) Review of Systems Review of Systems: gen - no fever cv - no cp, no orthopnea pulm - no dyspnea GI - no vomiting Physical Exam Physical Exam: gen - NAD, tardive dyskinesia (baseline), awake, alert; looks the same as on previous visits neck - no JVD mouth - MMM, no thrush heart - RRR, s1 s2, no murmur lungs - minimal dry rales bases, otherwise CTA B/l abd - soft NT BS+; no apparent ascites; no HSM ext - trace edema b/l, pulses 2+ b/l neuro - chronic neuropathic changes of feet psych - no confusion, no signs of hepatic encephalopathy musculo - right femur - large scar present Results & Data Results & Data ([facility]) Vital Signs (Past 12 Hours) Vital Signs Temp Pulse Resp BP Pulse Ox O2 Del Method 11/18/21 15:01 36.5 C 75 16 132/76 97 Room Air 11/18/21 09:04 145/82 H Laboratory Results Laboratory Results - last 24 hr 11/17/21 11/18/21 11/18/21 21:10 08:11 08:20 WBC 4.29 L RBC 2.92 L Hgb 10.6 L Hct 30.7 L MCV 105.1 H MCH 36.3 H MCHC 34.5 RDW Std Deviation 50.0 H RDW Coeff of Irina 13.2 Plt Count 71 L MPV 10.2 Sodium Potassium Chloride Carbon Dioxide Anion Gap BUN Creatinine Est Cr Clr Drug Dosing Est GFR ( Amer) Est GFR (Non-Af Amer) BUN/Creatinine Ratio Glucose POC Glucose 170 H Calcium Magnesium Urine Color Yellow Urine Appearance Clear Urine pH 6.5 Ur Specific [place] 1.012 Urine Protein Negative Urine Glucose (UA) Negative Urine Ketones Negative Urine Blood Negative Urine Nitrite Negative Urine Bilirubin Negative Urine Urobilinogen Negative Ur Leukocyte Esterase Trace H Urine WBC (Auto) 5-10 H Urine RBC (Auto) 0-4 U Hyaline Cast (Auto) 0 U Epithel Cells (Auto) 10-20 H Urine Bacteria (Auto) 2+ H Stl C. diff Tox B Gene 11/18/21 11/18/21 11/18/21 08:20 12:10 14:00 WBC RBC Hgb Hct MCV MCH MCHC RDW Std Deviation RDW Coeff of Irina Plt Count MPV Sodium 139 Potassium 4.0 Chloride 113 H Carbon Dioxide 23 Anion Gap 3 BUN 9 Creatinine 0.61 Est Cr Clr Drug Dosing 111.2 Est GFR ( Amer) 118.3 Est GFR (Non-Af Amer) 102.1 BUN/Creatinine Ratio 14.8 Glucose 167 H POC Glucose 157 H Calcium 7.7 L Magnesium 1.5 L Urine Color Urine Appearance Urine pH Ur Specific [place] Urine Protein Urine Glucose (UA) Urine Ketones Urine Blood Urine Nitrite Urine Bilirubin Urine Urobilinogen Ur Leukocyte Esterase Urine WBC (Auto) Urine RBC (Auto) U Hyaline Cast (Auto) U Epithel Cells (Auto) Urine Bacteria (Auto) Stl C. diff Tox B Gene Negative Cdiff Gene 11/18/21 11/18/21 17:12 20:39 WBC RBC Hgb Hct MCV MCH MCHC RDW Std Deviation RDW Coeff of Irina Plt Count MPV Sodium Potassium Chloride Carbon Dioxide Anion Gap BUN Creatinine Est Cr Clr Drug Dosing Est GFR ( Amer) Est GFR (Non-Af Amer) BUN/Creatinine Ratio Glucose POC Glucose 172 H 167 H Calcium Magnesium Urine Color Urine Appearance Urine pH Ur Specific [place] Urine Protein Urine Glucose (UA) Urine Ketones Urine Blood Urine Nitrite Urine Bilirubin Urine Urobilinogen Ur Leukocyte Esterase Urine WBC (Auto) Urine RBC (Auto) U Hyaline Cast (Auto) U Epithel Cells (Auto) Urine Bacteria (Auto) Stl C. diff Tox B Gene PG Care Time/CCT Total # of Minutes Spent Total Time Spent with Patient: Total time spent is greater than 50% in coordination of care (as documented) at patient's floor/unit and/or counseling patient: Coding Level of Care Code 67032 Subseq Hosp Care Lvl 2 Diagnoses UTI (urinary tract infection) N30.00 Hematuria presence: without hematuria Urinary tract infection type: acute cystitis Constipation K59.00 Constipation type: unspecified constipation type Hyperammonemia E72.20 Adrenal insufficiency E27.40 Diabetes mellitus E11.9 Nonalcoholic fatty liver disease K76.0 Depression F32.9 Dyslipidemia E78.5 Parkinsonism G20 Dizziness R42 Hypomagnesemia E83.42 Femur fracture, right S72.91XA (1) UTI (urinary tract infection) Hematuria presence: without hematuria Urinary tract infection type: acute cystitis Qualified Code(s): N30.00 - Acute cystitis without hematuria (2) Constipation Constipation type: unspecified constipation type Qualified Code(s): K59.00 - Constipation, unspecified
[2021-11-19] MEDS: LEVOTHYROXINE SODIUM 50 MCG TABLET PO SCH (06:31)
[2021-11-19] MEDS: ATOGEPANT 30 MG PO SCH (08:00)
[2021-11-19] MEDS: rifAXIMin 550 MG TABLET PO SCH ×2 (08:00→20:50)
[2021-11-19] MEDS: OXcarbazepine 150 MG TABLET PO SCH ×2 (08:00→20:50)
[2021-11-19] MEDS: TOPIRAMATE 100 MG TAB PO SCH ×2 (08:00→20:51)
[2021-11-19] MEDS: PANTOprazole 40 MG TAB PO SCH (08:00)
[2021-11-19] MEDS: SERTRALINE HCL 50 MG TABLET PO SCH (08:00)
[2021-11-19] MEDS: HYDROCORTISONE 10 MG TAB PO SCH ×2 (08:01→16:07)
[2021-11-19] MEDS: rOPINIRole HCL 0.25 MG TABLET PO SCH ×2 (08:01→20:50)
[2021-11-19] MEDS: FEXOFENADINE 60 MG TAB PO SCH (08:01)
[2021-11-19] MEDS: levETIRAcetam 500 MG TAB PO SCH ×2 (08:01→20:48)
[2021-11-19] MEDS: MAGNESIUM OXIDE 400 MG TAB PO SCH ×2 (08:01→20:48)
[2021-11-19] MEDS: BENZTROPINE MESYLATE 1 MG TAB PO SCH ×3 (08:02→20:47)
[2021-11-19] MEDS: aMILoride HCL 5 MG TAB PO SCH (08:02)
[2021-11-19] MEDS: HEPARIN SOD 5,000 UNIT/0.5 ML VIAL SQ SCH ×2 (08:02→20:47)
[2021-11-19] MEDS: LACTULOSE SYRUP 30 GM/45 ML UDP PO SCH ×4 (08:02→20:48)
[2021-11-19] MEDS: NYSTATIN SUSP 500,000 U/5 ML UDC PO SCH ×4 (08:02→20:49)
[2021-11-19] MEDS: DICLOFENAC SOD 1% GEL 100 GM TUBE EXT SCH ×4 (08:03→20:47)
[2021-11-19] MEDS: PRAVASTATIN SOD 20 MG TAB PO SCH (08:03)
[2021-11-19] MEDS: LANTUS PER UNIT CHARGE SQ SCH (08:55)
[2021-11-19] MEDS: INSULIN ASPART PER UNIT SC SCH ×4 (08:55→20:53)
[2021-11-19] MEDS ORDERED: ERTAPENEM SODIUM 1,000 MG in SYRINGE 0 ML IV SCH (09:00)
[2021-11-19 09:33] LABS: BUN Creatinine Ratio 15.4 (10-20); Calcium 7.7 mg/dl (8.5-10.1); Creatinine Clr Calc Pharmacy 104.4 ml/min; Est GFR (African American) 115.8 ml/min; Est GFR (Non-African American) 99.9 ml/min; Magnesium 1.8 mg/dl (1.7-2.4)
--- NOTE | 2021-11-19 10:40 | XRay Report ---
XR femur RT 2V routine CLINICAL HISTORY: prior Femur Fx, s/p ORIF x 2; severe right femoral pain COMPARISON STUDY: Right femur 01/21/2021. FINDINGS: Chronic deformity within the proximal and distal right femur consistent with an old, healed fractures. This remains unchanged. Multiple cement beads/bone graft again noted at the distal right femur. The bones are osteopenic. No acute fracture or dislocation within the right femur. Faint perio steal reaction again noted at the shaft of the right femur which is similar to the prior study. There fore, this favors a chronic finding. The visualized pelvic bones are intact. Small of soft tissue gloria cification within the right lateral hip. IMPRESSION: Old, healed fractures again noted within the right femur, unchanged. No new fracture or dislocation. ACT 112: Negative or not required by law. Electronically signed by: Talon Cruz M.D. 11/19/2021 10:39 AM
[2021-11-19] MEDS: ADVANCED PROBIOTIC 1250 MG CAPSULE PO SCH (12:32)
[2021-11-19] MEDS: PROMETHAZINE HCL 25 MG TAB PO PRN (14:42)
[2021-11-19] MEDS: DAPTOmycin 400 MG in SYRINGE 0 ML IV SCH (16:06)
[2021-11-19] MEDS: ACETAMINOPHEN 500 MG TAB PO SCH (20:46)
[2021-11-19] MEDS: QUEtiapine FUMARATE 25 MG TABLET PO SCH (20:50)
--- NOTE | 2021-11-20 00:19 | Hospitalist Progress Note ---
Date of Service November 19, 2021 Assessment & Plan (1) UTI (urinary tract infection): Plan: Present on admission. Uncomplicated UTI 2nd to ESBL klebsiella. Completed 7 day course of IV ertapenem. On 11/17 she complained of new-onset dysuria - repeat u/a and urine cx obtained - still with increased WBCs, 2+ bacteria. Culture now with GPC NOT gram negatives. Of note - Ms Munson has grown out ESBL klebsiella on the last 5 urine cultures (twice in June, once in July, once in September, and again this admission), and just received 7 day course of Ertapenem in September for same pathogen. Chronic Colonization? CT a/p September and October with tiny, nonobstructing kidney stones on left (<1mm each). Otherwise urinary tract without pathology. Checked a PVR bladder scan - 5cc. Sonja ABRAHAM consultation completed today. Klebsiella UTI adequately treated - no further ertapenem. GPC UTI - since she was symptomatic at time of the repeat urine culture I would recommend Rx - start daptomycin IV daily. Follow repeat culture to final. Sonja ABRAHAM suggests outpatient vest tailor follow-up due to recurrent UTI. Consider outpatient urology follow-up as well. (2) Constipation: Plan: resolved cont Lactulose QID asked staff to continue the lactulose as we need at least 3 BMs/day to keep ammonia down (3) Hyperammonemia: Plan: No hepatic encephalopathy at this time last ammonia level this week - in the 80s (baseline) Continue Lactulose Continue Rifaximin (4) Adrenal insufficiency: Plan: Suspected diagnosis.She was given stress dosed steroids during her last admission. Blood pressure stable at present. Defer on stress dose steroids now. Continue home hydrocortisone BID Endocrinology followup recommended for repeat testing (5) Diabetes mellitus: Plan: Chronic. A1c was 5.2% in 08/2021. 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 Compensated. EGD in 2020 without esophageal varices. Continue Lactulose Continue Rifaximin Continue Amiloride (7) Depression: Plan: Continue Sertraline 50 mg daily (8) Dyslipidemia: Plan: Cont pravastatin (9) Parkinsonism: Plan: Chronic. Secondary to her seizure and other psychiatric medications. Continue topiramte, ropinirole, oxcarbazepine, Keppra and Benztropine (10) Dizziness: Plan: has not mentioned this in several days vertigo-like in description cause? MRI brain 07/2021 without acute pathology consider Ted maneuver by PT for diagnosis if it persists or worsens meclizine prn (11) Hypomagnesemia: Plan: 2nd to diarrhea, etc off/on issue replaced yesterday now improved cont mag oxide cont amiloride (12) Femur fracture, right: Plan: h/o distal femur Fx s/p ORIF, then repeat surgery to remove hardware last surgery completed at [facility] [place] chronic pain related to this prior fracture & surgery checked x-rays to ensure nothing new is going on with the distal femur - stable - see report in terms of pain control we are very limited in what we can give due to advanced cirrhosis, psych history, concern for constipation and development of hepatic encephalopathy, etc I discussed Rx optoins with pain management informally today butrans patch as an option?? uncertain if benefits outweigh risks tylenol prn voltaren gel qid to right distal femur Plan DVT proph - heparin 5000 BID dispo - home with but await 2nd urine culture Admission and Anticipated Discharge Date Admission Date: November 13, 2021 Subjective no new issues eating well stooling c/o right leg and right foot pain - chronic had ID telehealth visit this am asks for pain meds like usual Review of Systems Review of Systems: gen - no fevers cv - no chest pain pulm - no dyspnea; no cough GI - no nausea/emesis Physical Exam Physical Exam: gen - NAD, tardive dyskinesia (baseline), awake, alert neck - no JVD mouth - MMM, no thrush heart - RRR, s1 s2, no murmur lungs - minimal dry rales bases, otherwise CTA B/l abd - soft NT BS+; no HSM ext - trace edema b/l, pulses 2+ b/l neuro - chronic neuropathic changes of feet (feet inverted) psych - no confusion, no signs of hepatic encephalopathy musculo - right femur - large scar present distal femur; no erythema, etc Results & Data Results & Data ([facility]) Vital Signs (Past 12 Hours) Vital Signs Temp Pulse Resp BP BP Pulse Ox O2 Del Method 11/19/21 20:45 Room Air 08/22/22 20:44 36.8 C 66 18 125/73 97 Room Air 11/19/21 16:36 36.4 C L 75 16 134/80 97 Room Air Laboratory Results Laboratory Results - last 24 hr 11/19/21 11/19/21 11/19/21 08:16 08:27 12:20 Sodium 139 Potassium 4.0 Chloride 109 H Carbon Dioxide 25 Anion Gap 5 BUN 10 Creatinine 0.65 Est Cr Clr Drug Dosing 104.4 Est GFR ( Amer) 115.8 Est GFR (Non-Af Amer) 99.9 BUN/Creatinine Ratio 15.4 Glucose 130 H POC Glucose 125 H 131 H Calcium 7.7 L Magnesium 1.8 11/19/21 11/19/21 17:20 20:29 Sodium Potassium Chloride Carbon Dioxide Anion Gap BUN Creatinine Est Cr Clr Drug Dosing Est GFR ( Amer) Est GFR (Non-Af Amer) BUN/Creatinine Ratio Glucose POC Glucose 177 H 159 H Calcium Magnesium Diagnostic Findings Femur X-Ray 11/19/21 08:46 XR femur RT 2V routine CLINICAL HISTORY: prior Femur Fx, s/p ORIF x 2; severe right femoral pain COMPARISON STUDY: Right femur 01/21/2021. FINDINGS: Chronic deformity within the proximal and distal right femur consistent with an old, healed fractures. This remains unchanged. Multiple cement beads/bone graft again noted at the distal right femur. The bones are osteopenic. No acute fracture or dislocation within the right femur. Faint periosteal reaction again noted at the shaft of the right femur which is similar to the prior study. Therefore, this favors a chronic finding. The visualized pelvic bones are intact. Small of soft tissue calcification within the right lateral hip. IMPRESSION: Old, healed fractures again noted within the right femur, unchanged. No new fracture or dislocation. ACT 112: Negative or not required by law. Electronically signed by: Talon Cruz M.D. 11/19/2021 10:39 AM Repeat urine cx from 11/17 -- GPC, >100,000 PG Care Time/CCT Total # of Minutes Spent Total Time Spent with Patient: Total time spent is greater than 50% in coordination of care (as documented) at patient's floor/unit and/or counseling patient: Coding Level of Care Code 13349 Subseq Hosp Care Lvl 3 Diagnoses UTI (urinary tract infection) N30.00 Hematuria presence: without hematuria Urinary tract infection type: acute cystitis Constipation K59.00 Constipation type: unspecified constipation type Hyperammonemia E72.20 Adrenal insufficiency E27.40 Diabetes mellitus E11.9 Nonalcoholic fatty liver disease K76.0 Depression F32.9 Dyslipidemia E78.5 Parkinsonism G20 Dizziness R42 Hypomagnesemia E83.42 Femur fracture, right S72.91XA (1) UTI (urinary tract infection) Hematuria presence: without hematuria Urinary tract infection type: acute cystitis Qualified Code(s): N30.00 - Acute cystitis without hematuria (2) Constipation Constipation type: unspecified constipation type Qualified Code(s): K59.00 - Constipation, unspecified
[2021-11-20] MEDS: LEVOTHYROXINE SODIUM 50 MCG TABLET PO SCH (05:24)
[2021-11-20] MEDS: NYSTATIN SUSP 500,000 U/5 ML UDC PO SCH ×2 (08:18→12:41)
[2021-11-20] MEDS: LACTULOSE SYRUP 30 GM/45 ML UDP PO SCH ×2 (08:18→12:41)
[2021-11-20] MEDS: TOPIRAMATE 100 MG TAB PO SCH (08:18)
[2021-11-20] MEDS: SERTRALINE HCL 50 MG TABLET PO SCH (08:18)
[2021-11-20] MEDS: rOPINIRole HCL 0.25 MG TABLET PO SCH (08:18)
[2021-11-20] MEDS: levETIRAcetam 500 MG TAB PO SCH (08:19)
[2021-11-20] MEDS: OXcarbazepine 150 MG TABLET PO SCH (08:19)
[2021-11-20] MEDS: PANTOprazole 40 MG TAB PO SCH (08:19)
[2021-11-20] MEDS: rifAXIMin 550 MG TABLET PO SCH (08:20)
[2021-11-20] MEDS: FEXOFENADINE 60 MG TAB PO SCH (08:20)
[2021-11-20] MEDS: BENZTROPINE MESYLATE 1 MG TAB PO SCH ×2 (08:20→12:41)
[2021-11-20] MEDS: aMILoride HCL 5 MG TAB PO SCH (08:20)
[2021-11-20] MEDS: HYDROCORTISONE 10 MG TAB PO SCH (08:20)
[2021-11-20] MEDS: ATOGEPANT 30 MG PO SCH (08:21)
[2021-11-20] MEDS: HEPARIN SOD 5,000 UNIT/0.5 ML VIAL SQ SCH (08:21)
[2021-11-20] MEDS: DICLOFENAC SOD 1% GEL 100 GM TUBE EXT SCH ×2 (08:21→12:41)
[2021-11-20] MEDS: MAGNESIUM OXIDE 400 MG TAB PO SCH (08:21)
[2021-11-20] MEDS: INSULIN ASPART PER UNIT SC SCH ×2 (08:56→12:44)
[2021-11-20] MEDS: LANTUS PER UNIT CHARGE SQ SCH (08:57)
[2021-11-20] MEDS: ADVANCED PROBIOTIC 1250 MG CAPSULE PO SCH (12:41)
[2021-11-20] MEDS: PROMETHAZINE HCL 25 MG TAB PO PRN (13:28)
[2021-11-20] MEDS: HEPARIN 100 UNIT/ML 5ML FLUSH FLUSH PRN (14:10)
[2021-11-20] MEDS: DAPTOmycin 400 MG in SYRINGE 0 ML IV SCH (14:10)
--- NOTE | 2021-11-20 14:18 | Discharge Summary ---
Date of Service November 20, 2021 Admission HPI Per Admitting Provider Marcellerigoberto Munson is a 55yo female well known to the medical service presenting with constipation, abdominal pain, inability to void. Recently admitted for ESBL Klebsiella UTI Reports abdominal pain x 1 day, lower, crampy, severe. Last BM 2 days ago. She has been taking her medications as prescribed including lactulose. Principal Diagnosis Constipation, UTI Discharge Exam gen - NAD, tardive dyskinesia (baseline), awake, alert neck - no JVD mouth - MMM, no thrush heart - RRR, s1 s2, no murmur lungs - minimal dry rales bases, otherwise CTA B/l abd - soft NT BS+; no HSM ext - trace edema b/l, pulses 2+ b/l neuro - chronic neuropathic changes of feet (feet inverted) psych - no confusion, no signs of hepatic encephalopathy musculo - right femur - large scar present distal femur; no erythema, etc Discharge Data Allergies Allergy/AdvReac Type Severity Reaction Status Date / Time metoclopramide Allergy Severe SEIZURES Verified 11/09/21 23:54 metronidazole Allergy Severe SEIZURE Verified 11/09/21 23:54 tramadol Allergy Severe SEIZURES Verified 11/09/21 23:54 amoxicillin Allergy Intermediate SEE COMMENT Verified 11/09/21 23:54 baclofen Allergy Intermediate RASH Verified 11/09/21 23:54 butalbital Allergy Intermediate HIVES Verified 11/09/21 23:54 dicyclomine Allergy Intermediate HIVES Verified 11/09/21 23:54 nitrofurantoin Allergy Intermediate HIVES/RASH/SEVERE Verified 11/09/21 23:54 [From Macrobid] ITCHING pollen extracts Allergy Intermediate Hives Verified 11/09/21 23:54 Sulfa (Sulfonamide Allergy Intermediate CAUSES Verified 11/09/21 23:54 Antibiotics) BLACK STOOLS Tetracyclines Allergy Intermediate DOXYCYCLINE Verified 11/09/21 23:54 -HIVES adhesive Allergy Mild RASH, Verified 11/09/21 23:54 DUODERM=RED,ITCHY celecoxib Allergy Mild HIVES Verified 11/09/21 23:54 sulindac Allergy Mild ALLERGY Verified 11/09/21 23:54 LISTED "CLONDORAL"--HIVES Cephalosporins AdvReac Severe TURNS Verified 11/09/21 23:54 STOOL VERY DARK paroxetine [From Paxil] AdvReac Severe Vomiting Verified 11/09/21 23:54 dextromethorphan AdvReac Mild Vomiting Verified 11/09/21 23:54 Consultations 11/09/21 22:56 ED Decision to Admit Stat 11/13/21 12:36 Consult Infectious Diseases Routine Ordered Studies 11/09/21 20:01 CT abd pelvis IV con only Stat 11/11/21 12:49 US duplex portal hepatic veins Routine Hospital Course (1) UTI (urinary tract infection): Present on admission. Uncomplicated UTI 2nd to ESBL klebsiella. Completed 7 day course of IV ertapenem. On 11/17 she complained of new-onset dysuria - repeat u/a and urine cx obtained - still with increased WBCs, 2+ bacteria. Culture now with VRE Of note - Ms Munson has grown out ESBL klebsiella on the last 5 urine cultures (twice in June, once in July, once in September, and again this admission), and just received 7 day course of Ertapenem in September for same pathogen. Chronic Colonization? CT a/p September and October with tiny, nonobstructing kidney stones on left (<1mm each). Otherwise urinary tract without pathology. Checked a PVR bladder scan - 5cc. Lyudmilaer ID consultation completed and recommended no further tx for the ESBL Klebsiella and then I discussed the VRE--> recommended linezolid vs Daptomycin for 5-7 days Given multiple interactions of her meds with linezolid (psych and anticonvulsants), decided to finish out course of 7 days Daptomycin at [facility] after discharge, has port accessed Klebsiella UTI adequately treated - no further ertapenem. Lyumdilaer ID suggests outpatient head strength and conditioning coach follow-up due to recurrent UTI. Consider outpatient urology follow-up as well. (2) Constipation: resolved cont Lactulose QID stressed importance of this with (3) Hyperammonemia: No hepatic encephalopathy at this time last ammonia level this week - in the 80s (baseline) Continue Lactulose Continue Rifaximin (4) Adrenal insufficiency: Suspected diagnosis.She was given stress dosed steroids during her last admission. Blood pressure stable at present. Defer on stress dose steroids now. Continue home hydrocortisone BID Endocrinology followup recommended for repeat testing (5) Diabetes mellitus: Chronic. A1c was 5.2% in 08/2021. 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 Compensated. EGD in 2020 without esophageal varices. Continue Lactulose Continue Rifaximin Continue Amiloride f/u with GI as outpt (7) Depression: Continue Sertraline 50 mg daily (8) Dyslipidemia: Cont pravastatin (9) Parkinsonism: Chronic. Secondary to her seizure and other psychiatric medications. Continue topiramte, ropinirole, oxcarbazepine, Keppra and Benztropine (10) Dizziness: has not mentioned this in several days vertigo-like in description cause? MRI brain 07/2021 without acute pathology consider Ted maneuver by PT for diagnosis if it persists or worsens meclizine prn was ordered (11) Hypomagnesemia: 2nd to diarrhea, etc off/on issue replaced and resolved cont mag oxide cont amiloride (12) Femur fracture, right: h/o distal femur Fx s/p ORIF, then repeat surgery to remove hardware last surgery completed at [facility] chronic pain related to this prior fracture & surgery checked x-rays to ensure nothing new is going on with the distal femur - stable - see report in terms of pain control we are very limited in what we can give due to advanced cirrhosis, psych history, concern for constipation and development of hepatic encephalopathy, etc I do not feel comfortable prescribing opioids to her given innumerable hospitalizations for constipation, hepatic encpehalopathy, etc. Question if opioid seeking behavior. Discussed with her and he is in total agreement with not giving her opioids tylenol prn voltaren gel qid to right distal femur Plan DVT proph - heparin 5000 BID dispo - home with today, [facility] abx for 5 more days has been arranged by bilingual patient support caseworker. Discussed her care with on phone on day of discharge Total Time Total Time Spent Total Time Spent (In Minutes): 40 min Discharge Plan Discharge Items Patient Disposition: Home - Self-Care Reason For Visit: CONSTIPATION,UTI Discharge Diagnosis: Constipation, UTI Condition on Discharge: Fair Activity: Resume your previous activity Non-emergency contact: Primary Care Provider Call non-emergency contact if: you have any medication questions and your sympto ms worsen Follow-up/Referrals: Geri Mcgraw PA-C [Primary Care Provider] - (Follow up within 1-2 weeks) Diet: Carb Consistent or DM2 and Low Sodium (2gm) Addtl Attending Provider Instructions: Please finish out 5 more days of the antibiotic called daptomycin through the IV for your UTI at the [facility] as arranged for you by the Salesforce Developer. It is VERY IMPORTANT for you to continue to take your lactulose and all other meds on time as prescribed. Follow up with your PCP for all other needs. Pending Studies at Discharge: No Stand-Alone Forms: [facility], Smoking Cessation Medications and DC Order Prescriptions: New nystatin 100,000 unit/mL Suspension 5 ml PO QID 5 Days Qty: 100 0RF daptomycin 500 mg recon soln 500 mg IV DAILY Qty: 5 0RF Rx Instructions: administer over 30 mins Continued albuterol sulfate 90 mcg/actuation HFA aerosol inhaler 2 puff inhalation Q4H PRN (Reason: shortness of breath) Qty: 1 3RF ropinirole 0.25 mg tablet 0.25 mg PO BID 90 Days Qty: 180 1RF (DME) pen needle, diabetic [BD Ultra-Fine Sheridan Pen Needle] 32 gauge x 5/32" needle See Rx Instructions .Route Qty: 400 3RF Rx Instructions: use 4 x daily insulin aspart U-100 [Novolog Flexpen U-100 Insulin] 100 unit/mL (3 mL) insulin pen 15 - 25 unit SQ TID MDD 60 units Qty: 30 5RF Rx Instructions: per sliding scale ipratropium-albuterol 0.5 mg-3 mg(2.5 mg base)/3 mL solution for nebulization 3 ml INH QID PRN (Reason: wheezing) Qty: 90 0RF teriparatide 20 mcg/dose (620mcg/2.48mL) pen injector 20 mcg subcut PM Qty: 7.44 0RF benztropine 1 mg tablet 1 mg PO TID 30 Days Qty: 90 5RF Xifaxan 550 mg tablet 550 mg PO BID Qty: 60 5RF topiramate 100 mg tablet 100 mg PO BID Qty: 60 5RF oxcarbazepine 300 mg tablet See Rx Instructions .ROUTE .COMPLEX Qty: 90 5RF Rx Instructions: 300 mg PO take one tablet in the morning, then take two tablets (600mg) in the evening; levothyroxine [Euthyrox] 50 mcg tablet 50 mcg PO QAM Qty: 30 2RF Qulipta 30 mg tablet 30 mg PO DAILY Qty: 30 2RF omeprazole 40 mg capsule,delayed release(DR/EC) 40 mg PO QAM Qty: 90 1RF hydrocortisone 10 mg tablet See Rx Instructions .ROUTE .COMPLEX Qty: 45 3RF Rx Instructions: take 10 mg in the morning and 5 mg every evening; levetiracetam 750 mg tablet 1,500 mg PO BID 30 Days Qty: 120 5RF cholecalciferol (vitamin D3) [Vitamin D3] 25 mcg (1,000 unit) capsule 5,000 unit PO QDL Label Comments: TAKES IN AFTERNOON promethazine 25 mg tablet 25 mg PO Q8H PRN (Reason: nausea and vomiting) Qty: 10 0RF ascorbate calcium (vitamin C) 500 mg tablet 500 mg PO QDL vitamin E (dl, acetate) 180 mg (400 unit) capsule 180 mg PO Q OTHER DAY (DME) OneTouch Verio test strips Strip See Rx Instructions .Route Qty: 50 5RF Rx Instructions: Test blood sugars once a day epinephrine [EpiPen 2-Garret] 0.3 mg/0.3 mL auto-injector 0.3 mg IM Q10M PRN (Reason: Anaphylaxis) lecithin 1,200 mg capsule 1,200 mg PO QDL cranberry 400 mg capsule 400 mg PO BIDM Rx Instructions: administer with a meal multivitamin [Multiple Vitamins] Tablet 1 tab PO QDL zinc 50 mg Tablet 50 mg PO QDL vitamin A 8,000 unit Capsule 8,000 unit PO QDL vitamin B complex Tablet 1 tab PO QDL Probiotic 3 billion cell Capsule 1 mmu cells PO QDL fexofenadine 60 mg Tablet 60 mg PO QAM calcium carbonate 500 mg calcium (1,250 mg) Tablet 500 mg PO QDL Blue-Emu Cream 1 applic topical HS famotidine 20 mg Tablet 20 mg PO HS Qty: 30 0RF lactulose 20 gram/30 mL Solution 30 g PO QID Qty: 3000 0RF Rx Instructions: please dispense 5400 mL (which would equal a 30 day supply) amiloride 5 mg Tablet 5 mg PO DAILY Qty: 30 0RF Tresiba FlexTouch U-100 100 unit/mL (3 mL) insulin pen 30 unit subcut QAM Qty: 15 1RF pravastatin 20 mg tablet 20 mg PO QAM Label Comments: this is a new medication per patients melatonin 5 mg tablet 10 mg PO HS Qty: 1 0RF Rx Instructions: ssxb-[id number]-[id number] magnesium oxide 400 mg (241.3 mg magnesium) tablet 400 mg PO BID Qty: 0 0RF acetaminophen [Tylenol Extra Strength] 500 mg Tablet 1,000 mg PO HS Qty: 0 0RF acetaminophen [Tylenol Extra Strength] 500 mg tablet 500 mg PO BID PRN (Reason: Pain) diclofenac sodium [Voltaren Arthritis Pain] 1 % gel 4 g EXT QID PRN (Reason: Pain) sertraline 50 mg tablet 50 mg PO DAILY Refresh Optive Advanced 0.5-1-0.5 % drops 1 drops OPB QID Rx Instructions: PER PT'S , "USUALLY USES AT HS". Discharge Orders: Discharge Order (Routine); Ordered 11/20/21 Ordered By: Mary Ann Rivera Admission Data Admit Date/Time: 11/13/21 12:36 Attending Provider: Mary Ann Rivera Admit Provider: Amalia Beatty Primary Care Provider: Geri Mcgraw Other Providers: Amalia Beatty ; Frank Thapa ; Kenyetta Hazel ; Julito Beatty I. ; Matti Lopes II ; Karyn Correa ; Kenroy Irizarry ; Zuhair Sadler Coding Level of Care Code D/C DAY MANAGEMENT >30 MINS Diagnoses UTI (urinary tract infection) N30.00 Hematuria presence: without hematuria Urinary tract infection type: acute cystitis Constipation K59.00 Constipation type: unspecified constipation type Hyperammonemia E72.20 Adrenal insufficiency E27.40 Diabetes mellitus E11.9 Nonalcoholic fatty liver disease K76.0 Depression F32.9 Dyslipidemia E78.5 Parkinsonism G20 Dizziness R42 Hypomagnesemia E83.42 Femur fracture, right S72.91XA
== END 2021-11-20 15:02 | disposition home or self-care (01) | DRG 690 ==
LOC: 3N 19:22 → ED 19:22 → SUATTDRO 23:46 → 3N 11-10 02:25 → SUATTDRO 11-13 12:36

== ENCOUNTER 2021-11-23 12:43 | Observation (INO) ==
[2021-11-23 14:36] LABS: Basophils # (auto) 0.05 K/uL (0-0.2); Basophils % (auto) 1.3 %; Eosinophils # (auto) 0.09 K/uL (0-0.50); Eosinophils % (auto) 2.3 %; Hematocrit (blood only) 34.6 % (34.1-44.9); Hemoglobin 11.7 g/dl (12.0-16.0); Immature Granulocytes # (auto) 0.01 K/uL (0.00-0.02); Immature Granulocytes % (auto) 0.3 %; Lymphocytes % (auto) 23.3 %; Mean Platelet Volume 10.8 fL (9.4-12.3); Monocytes # (auto) 0.51 K/uL (0.24-0.82); Monocytes % (auto) 13.2 %; Neutrophils # (auto) 2.31 K/uL (1.4-6.5); Neutrophils % (auto) 59.6 %; Platelet Count 75 K/uL (130-400); White Blood Count 3.87 K/ul (4.8-10.8)
--- NOTE | 2021-11-23 14:41 | XRay Report ---
XR chest 1V portable HISTORY: Confusion COMPARISON: Chest 11/17/2021. FINDINGS: There are low lung volumes. No pneumothorax. No pleural effusion is. The cardiac silhouette remains mildly enlarged. Mild pulmonary vascular congestion without overt edema, unchanged. Right ju gular Port-A-Cath terminates at the distal SVC. Old, healed left humeral neck fracture. IMPRESSION: No change in the cardiomegaly and mild central pulmonary vascular congestion. ACT 112: Negative or not required by law. Electronically signed by: Talon Cruz M.D. 11/23/2021 2:40 PM
--- NOTE | 2021-11-23 14:43 | Emergency Department Note ---
History of Present Illness General Chief complaint: Confusion Stated complaint: CONFUSION, POSS SIDE EFFECT TO MEDICATION Time Seen by Provider: 11/23/21 14:04 Source: family () History of Present Illness Provider complaint: Lethargy confusion Onset (ago): day(s) 1 Associated symptoms: + weakness; no cough, no headaches, no nausea/vomiting, no seizure or no shortness of breath 55-year-old female presents emergency department with her for weakness and confusion. reports that yesterday the patient was increasingly confused and weak. Having difficulty getting off the commode. Denies any falls. states he thinks it is a reaction to the daptomycin that the patient was on. Patient's states he has a nursing manual at home and looked up to side reactions to daptomycin is very concerned that she has a reaction to it. Home Medications Medication Instructions Recorded Confirmed Type multivitamin (Multiple Vitamins 1 tab PO QDL 12/26/17 11/22/21 History tablet) lactobacillus combination no.4 3 1 mmu cells PO QDL 09/20/18 11/22/21 History billion cell capsule (Probiotic) vitamin A 2,400 mcg capsule 8,000 unit PO QDL 09/20/18 11/22/21 History vitamin B complex 1 tab PO QDL 09/20/18 11/22/21 History zinc 50 mg tablet 50 mg PO QDL 02/09/19 11/22/21 History epinephrine 0.3 mg/0.3 mL 0.3 mg IM Q10M PRN Anaphylaxis 04/02/19 11/22/21 History injection, auto-injector (EpiPen 2-Garret) lecithin 1,200 mg capsule 1,200 mg PO QDL 04/29/19 11/22/21 History fexofenadine 60 mg tablet 60 mg PO QAM 04/12/20 11/22/21 History albuterol sulfate 90 mcg/actuation 2 puff inhalation Q4H PRN 05/31/20 11/22/21 Rx aerosol inhaler shortness of breath #1 inhaler cranberry 400 mg capsule 400 mg PO BIDM 06/08/20 11/22/21 History promethazine 25 mg tablet 25 mg PO Q8H PRN nausea and 10/11/20 11/22/21 Rx vomiting #10 tabs ascorbate calcium (vitamin C) 500 500 mg PO QDL 11/16/20 11/22/21 History mg tablet vitamin E (dl, acetate) 180 mg 180 mg PO Q OTHER DAY 11/16/20 11/22/21 History (400 unit) capsule cholecalciferol (vitamin D3) 25 5,000 unit PO QDL 11/30/20 11/22/21 History mcg (1,000 unit) capsule (Vitamin D3) pravastatin 20 mg tablet 20 mg PO QAM 12/05/20 11/22/21 History magnesium oxide 400 mg (241.3 mg 400 mg PO BID #0 tabs 01/02/21 11/22/21 Rx magnesium) tablet melatonin 5 mg tablet 10 mg PO HS #1 tab 01/02/21 11/22/21 Rx ropinirole 0.25 mg tablet 0.25 mg PO BID 90 days #180 tabs 01/10/21 11/22/21 Rx acetaminophen 500 mg tablet 1,000 mg PO HS #0 tabs 04/20/21 11/22/21 Rx (Tylenol Extra Strength) acetaminophen 500 mg tablet 500 mg PO BID PRN Pain 06/22/21 11/22/21 History (Tylenol Extra Strength) diclofenac sodium 1 % topical gel 4 g EXT QID PRN Pain 06/22/21 11/22/21 History (Voltaren Arthritis Pain) pen needle, diabetic 32 gauge x #400 ea 06/26/21 11/22/21 Rx 5/32" (BD Ultra-Fine [place]idan Pen Needle) insulin aspart U-100 100 unit/mL 15 - 25 unit (0.15 - 0.25 mL) 07/07/21 11/22/21 Rx (3 mL) subcutaneous pen (Novolog subcut TID #30 mL Flexpen U-100 Insulin aspart) blood sugar diagnostic (OneTouch #50 ea 07/17/21 11/22/21 Rx Verio test strips) ipratropium 0.5 mg-albuterol 3 mg 3 ml inhalation QID PRN wheezing 07/19/21 11/22/21 Rx (2.5 mg base)/3 mL nebulization #90 mL soln benztropine 1 mg tablet 1 mg PO TID 30 days #90 tabs 07/20/21 11/22/21 Rx teriparatide 20 mcg/dose (620 20 mcg (0.08 mL) subcut PM #7.44 mL 07/20/21 11/22/21 Rx mcg/2.48 mL) subcutaneous pen injector Blue-Emu Cream 1 applic topical HS 07/22/21 11/22/21 History calcium carbonate 500 mg calcium 500 mg PO QDL 07/22/21 11/22/21 History (1,250 mg) tablet rifaximin 550 mg tablet (Xifaxan) 550 mg PO BID hepatic 07/26/21 11/22/21 Rx 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 #60 tabs oxcarbazepine 300 mg tablet See Rx Instructions .Route 08/14/21 11/22/21 Rx .COMPLEX #90 tabs topiramate 100 mg tablet 100 mg PO BID #60 tabs 08/14/21 11/22/21 Rx levothyroxine 50 mcg tablet 50 mcg PO QAM #30 tabs 09/12/21 11/22/21 Rx (Euthyrox) amiloride 5 mg tablet 5 mg PO DAILY #30 tabs 10/23/21 11/22/21 Rx famotidine 20 mg tablet 20 mg PO HS #30 tabs 10/23/21 11/22/21 Rx insulin degludec 100 unit/mL (3 30 unit (0.3 mL) subcut QAM #15 mL 10/23/21 11/22/21 Rx mL) subcutaneous pen (Tresiba FlexTouch U-100 insulin) lactulose 20 gram/30 mL oral 30 g (45 mL) PO QID #3,000 mL 10/23/21 11/22/21 Rx solution atogepant 30 mg tablet (Qulipta) 30 mg PO DAILY #30 tabs 11/02/21 11/22/21 Rx omeprazole 40 mg capsule,delayed 40 mg PO QAM #90 caps 11/05/21 11/22/21 Rx release hydrocortisone 10 mg tablet See Rx Instructions .Route 11/07/21 11/22/21 Rx .COMPLEX #45 tabs fznlkrgupbpxwhqqrzdhuc-wrwpiiij-yricdeqj 1 drops OPB QID 11/10/21 11/22/21 History 80 0.5 %-1 %-0.5 % eye drops (Refresh Optive Advanced) sertraline 50 mg tablet 50 mg PO DAILY 11/10/21 11/22/21 History daptomycin 500 mg intravenous 500 mg IV DAILY #5 ea 11/20/21 11/22/21 Rx solution nystatin 100,000 unit/mL oral 5 ml PO QID 5 days #100 mL 11/20/21 11/22/21 Rx suspension levetiracetam 750 mg tablet 1,500 mg PO BID 30 days #120 tabs 11/21/21 11/22/21 Rx Allergies Allergy/AdvReac Type Severity Reaction Status Date / Time metoclopramide Allergy Severe SEIZURES Verified 11/21/21 14:02 metronidazole Allergy Severe SEIZURE Verified 11/21/21 14:02 tramadol Allergy Severe SEIZURES Verified 11/21/21 14:02 amoxicillin Allergy Intermediate SEE COMMENT Verified 11/21/21 14:02 baclofen Allergy Intermediate RASH Verified 11/21/21 14:02 butalbital Allergy Intermediate HIVES Verified 11/21/21 14:02 dicyclomine Allergy Intermediate HIVES Verified 11/21/21 14:02 nitrofurantoin Allergy Intermediate HIVES/RASH/SEVERE Verified 11/21/21 14:02 [From Macrobid] ITCHING pollen extracts Allergy Intermediate Hives Verified 11/21/21 14:02 Sulfa (Sulfonamide Allergy Intermediate CAUSES Verified 11/21/21 14:02 Antibiotics) BLACK STOOLS Tetracyclines Allergy Intermediate DOXYCYCLINE Verified 11/21/21 14:02 -HIVES adhesive Allergy Mild RASH, Verified 11/21/21 14:02 DUODERM=RED,ITCHY celecoxib Allergy Mild HIVES Verified 11/21/21 14:02 sulindac Allergy Mild ALLERGY Verified 11/21/21 14:02 LISTED "CLONDORAL"--HIVES Cephalosporins AdvReac Severe TURNS Verified 11/21/21 14:02 STOOL VERY DARK paroxetine [From Paxil] AdvReac Severe Vomiting Verified 11/21/21 14:02 dextromethorphan AdvReac Mild Vomiting Verified 11/21/21 14:02 Past Med/Surg History Medical History Acute alteration in mental status Acute alteration in mental status Acute confusion Acute dehydration Acute hepatic encephalopathy Acute hepatic encephalopathy Acute hepatic encephalopathy Altered mental status Constipation Depression Diabetes mellitus Electrolyte abnormality Hyperammonemia Hyperammonemia Hyperbilirubinemia Nonalcoholic fatty liver disease Parkinsonism Sleepiness Spleen enlargement Thrombocytopenia Urinary tract infection UTI (urinary tract infection) Surgical History Femur fracture, right SPIRAL FRACTURE REPAIRED (HARDWARE REPAIRED) History of ankle surgery RT/LEFT History of appendectomy History of cholecystectomy History of colonoscopy History of esophagogastroduodenoscopy (EGD) History of kyphoplasty History of open reduction and internal fixation (ORIF) procedure RT HIP History of surgery (~06/02/20) screw/plate removal from left humerus History of surgery on arm LEFT (HARDWARE INTACT) History of tooth extraction History of vascular access device right A port Hx of carpal tunnel repair RT/LEFT Hx of cataract extraction RT/LEFT S/P laminectomy lumbar spine S/P nasal surgery nasal bone fracture repair S/P [facility] (1997) Family History Other Adopted No pertinent family history Social History Smoking Status: Never smoker Tobacco Type: Cigarettes Second Hand Exposure: No; Hx Alcohol Use: No Hx Substance Use: No Preferred Language: Danish Communication Ability: Effective Visual Impairment: No Limitations Answering Service Operator Required: No Beliefs That Will Affect Care: None marital status: Current Living Situation: Spouse Current Living Situation Comment: Lives with current occupational status: unemployed and disabled How many Children do You have: 0 Feels Safe at Home: Yes Seatbelt Use: always Assistive Devices: Wheelchair Review of Systems A total of 10 systems reviewed and were otherwise negative Physical Exam Vital Signs Vital Signs - 24 hr 11/23/21 13:03 11/23/21 14:10 11/23/21 14:10 Temperature Temperature Source Pulse Rate 83 Pulse Rate [Apical] 82 Pulse Rhythm Regular Pulse Rhythm [Apical] Regular Pulse Strength Normal Pulse Strength [Apical] Normal Respiratory Rate 22 20 Respiratory Effort / Characteristics Non-Labored Spontaneous Non-Labored Respiratory Depth Normal Normal Respiratory Pattern Regular Regular Blood Pressure 141/76 H Blood Pressure [Right Arm] Blood Pressure Mean 97 Blood Pressure Mean [Right Arm] Blood Pressure Position Sitting Blood Pressure Position [Left Arm] Sitting Blood Pressure Position [Right Arm] Pulse Oximetry 98 96 97 Oxygen Delivery Method Room Air Room Air Room Air Sepsis Recent Fever Within 48 Hours No Sepsis New/Unexplained Change in Mental Status No Sepsis Action Taken by Nursing No Action Required 11/23/21 14:10 11/23/21 15:17 11/23/21 15:34 Temperature 36.9 C Temperature Source Oral Pulse Rate Pulse Rate [Apical] 78 Pulse Rhythm Pulse Rhythm [Apical] Regular Pulse Strength Pulse Strength [Apical] Normal Respiratory Rate 22 Respiratory Effort / Characteristics Non-Labored Respiratory Depth Normal Respiratory Pattern Regular Blood Pressure Blood Pressure [Right Arm] 123/63 Blood Pressure Mean Blood Pressure Mean [Right Arm] 83 Blood Pressure Position Blood Pressure Position [Left Arm] Blood Pressure Position [Right Arm] Sitting Pulse Oximetry 98 97 Oxygen Delivery Method Room Air Room Air Room Air Sepsis Recent Fever Within 48 Hours Sepsis New/Unexplained Change in Mental Status Sepsis Action Taken by Nursing 11/23/21 16:10 11/23/21 16:09 11/23/21 16:09 Temperature Temperature Source Pulse Rate 78 Pulse Rate [Apical] 75 Pulse Rhythm Pulse Rhythm [Apical] Pulse Strength Pulse Strength [Apical] Respiratory Rate 18 22 Respiratory Effort / Characteristics Respiratory Depth Respiratory Pattern Blood Pressure 137/68 Blood Pressure [Right Arm] 137/68 Blood Pressure Mean 91 Blood Pressure Mean [Right Arm] 91 Blood Pressure Position Blood Pressure Position [Left Arm] Blood Pressure Position [Right Arm] Pulse Oximetry 98 Oxygen Delivery Method Room Air Sepsis Recent Fever Within 48 Hours Sepsis New/Unexplained Change in Mental Status Sepsis Action Taken by Nursing 11/23/21 16:30 11/23/21 17:00 Temperature Temperature Source Pulse Rate 81 Pulse Rate [Apical] 76 Pulse Rhythm Pulse Rhythm [Apical] Pulse Strength Pulse Strength [Apical] Respiratory Rate 20 20 Respiratory Effort / Characteristics Respiratory Depth Respiratory Pattern Blood Pressure Blood Pressure [Right Arm] 134/75 Blood Pressure Mean Blood Pressure Mean [Right Arm] 94 Blood Pressure Position Blood Pressure Position [Left Arm] Blood Pressure Position [Right Arm] Pulse Oximetry 97 Oxygen Delivery Method Room Air Room Air Sepsis Recent Fever Within 48 Hours Sepsis New/Unexplained Change in Mental Status Sepsis Action Taken by Nursing Physical Exam HENT: Exam performed. -Head: Normocephalic and atraumatic. -Right Ear: External ear normal. No mastoid tenderness. -Left Ear: External ear normal. No mastoid tenderness. -Mouth/Throat: The oropharynx is clear and moist. No trismus in the jaw. No dental abscesses or uvula swelling. No oropharyngeal exudate or tonsillar abscesses. EYES: Conjunctivae and EOM are normal. Pupils are equal, round, and reactive to light. Right eye exhibits no discharge. Left eye exhibits no discharge. No scleral icterus. NECK: Normal range of motion. Neck supple. No JVD present. No spinous process tenderness present. No carotid bruit present. No rigidity. No tracheal deviation and normal range of motion present. No Brudzinski's sign and no Kernig's sign noted. CV: Normal rate, regular rhythm, normal heart sounds and intact distal pulses. There is no peripheral edema. Palpable radial pulses bue. PULM/CHEST: Effort normal and breath sounds normal. No respiratory distress. No stridor. She has no wheezes. She has no rales. -Chest Wall: She exhibits no tenderness. ABD: The abdomen is soft. MUSC/SKEL: Normal range of motion. There is no peripheral edema, tenderness or deformity. LYMPH: No cervical adenopathy. NEURO: Motor and sensation grossly intact. Course Course 1404: The patient was evaluated in room C5. A complete history and physical exam was performed Cardiac monitoring: An order was placed for continuous cardiac monitoring. The monitor shows a rate of 70 with sinus rhythm EMR reviewed. Patient was admitted to the hospital from November 09 to November 20, 2021. She was discharged from the hospital 3 days ago. During that admission the patient was admitted for UTI. 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 Patient's urine culture during this admission also grew out VRE. Patient was seen by [facility] infectious disease and they recommended daptomycin for 5 to 7 days given her multiple drug allergies. The patient was found to have an ammonia in the 80s which was at her baseline and continued on lactulose and rifaximin. 1625: Vital signs stable. Labs within normal limits with exception of an ammonia of 201, per the hospitalist previous notes the patient's baseline ammonia is around 80. Patient was given lactulose orally. Imaging within normal limits. Patient be admitted to the [facility] hospitalist team Dr. Freeman notified. Administered Medications Lactulose (Lactulose Syrup 30 Gm/45 Ml Udp) 30 gm PO NOW STA Stop: 11/23/21 16:03 Last Admin: 11/23/21 16:38 Dose: 30 gm Documented By: SHYANN Medical Decision Making Laboratory Data Result diagrams: 11/23/21 14:20 11/23/21 14:20 Lab Results 11/23/21 11/23/21 11/23/21 Range/Units 14:20 14:20 14:20 WBC 3.87 L (4.8-10.8) K/ul RBC 3.24 L (3.93-5.22) M/uL Hgb 11.7 L (12.0-16.0) g/dl Hct 34.6 (34.1-44.9) % MCV 106.8 H (80.0-100.0) fL MCH 36.1 H (25.0-34.0) pg MCHC 33.8 (32.0-36.0) g/dL RDW Std Deviation 52.3 H (36.4-46.3) fL RDW Coeff of Irina 13.4 (11.5-14.5) % Plt Count 75 L (130-400) K/uL MPV 10.8 (9.4-12.3) fL Immature Gran % (Auto) 0.3 % Neut % (Auto) 59.6 % Lymph % (Auto) 23.3 % Dare % (Auto) 13.2 % Eos % (Auto) 2.3 % Baso % (Auto) 1.3 % Neut # (Auto) 2.31 (1.4-6.5) K/uL Lymph # (Auto) 0.90 L (1.2-3.4) K/uL Dare # (Auto) 0.51 (0.24-0.82) K/uL Eos # (Auto) 0.09 (0-0.50) K/uL Baso # (Auto) 0.05 (0-0.2) K/uL Immature Gran # (Auto) 0.01 (0.00-0.02) K/uL PT Cancelled INR Cancelled APTT Cancelled PTT Ratio Cancelled Sodium 144 (136-145) mmol/L Potassium 3.9 (3.5-5.1) mmol/L Chloride 114 H (98-107) mmol/L Carbon Dioxide 24 (21-32) mmol/L Anion Gap 6 (3-11) BUN 18 (6-23) mg/dl Creatinine 0.63 (0.6-1.2) mg/dl Est Cr Clr Drug Dosing 106.7 ml/min Est GFR ( Amer) 117.0 ml/min Est GFR (Non-Af Amer) 101.0 ml/min BUN/Creatinine Ratio 28.6 H (10-20) Glucose 141 H (70-99(Fasting)) mg/dl Lactate (0.4-2.0) mmol/L Calcium 8.7 (8.5-10.1) mg/dl Total Bilirubin 1.4 H (0.2-1.0) mg/dl AST 38 (13-39) U/L ALT 32 (7-52) U/L Alkaline Phosphatase 130 H (34-104) U/L Ammonia (18-72) umol/L Troponin I High Sens 4.6 (0-14) pg/ml Total Protein 5.8 L (6.0-8.3) gm/dl Albumin 3.3 L (3.4-5.0) gm/dl Globulin 2.5 (2.5-4.0) gm/dl Albumin/Globulin Ratio 1.3 (0.9-2) Urine Color Urine Appearance (Clear) Urine pH (4.5-7.5) Ur Specific [place] (1.000-1.030) Urine Protein (Negative) Urine Glucose (UA) (Negative) Urine Ketones (Negative) Urine Blood (Negative) Urine Nitrite (Negative) Urine Bilirubin (Negative) Urine Urobilinogen (Negative) Ur Leukocyte Esterase (Negative) Urine WBC (Auto) (0-5) /hpf Urine RBC (Auto) (0-4) /hpf U Hyaline Cast (Auto) (0-5) /lpf U Epithel Cells (Auto) (0-5) /lpf Urine Bacteria (Auto) (Negative) Urine Opiates Screen (Neg) Ur Methadone, Qual (Neg) Urine Barbiturates (Neg) Ur Phencyclidine (PCP) (Neg) U Amphetamin/Meth Scrn (Neg) MDMA (Ecstasy) Screen (Neg) U Benzodiazepines Scrn (Neg) Ur Cocaine Metabolite (Neg) U Marijuana (THC) Screen (Neg) 11/23/21 11/23/21 11/23/21 Range/Units 14:30 14:30 14:45 WBC (4.8-10.8) K/ul RBC (3.93-5.22) M/uL Hgb (12.0-16.0) g/dl Hct (34.1-44.9) % MCV (80.0-100.0) fL MCH (25.0-34.0) pg MCHC (32.0-36.0) g/dL RDW Std Deviation (36.4-46.3) fL RDW Coeff of Irina (11.5-14.5) % Plt Count (130-400) K/uL MPV (9.4-12.3) fL Immature Gran % (Auto) % Neut % (Auto) % Lymph % (Auto) % Dare % (Auto) % Eos % (Auto) % Baso % (Auto) % Neut # (Auto) (1.4-6.5) K/uL Lymph # (Auto) (1.2-3.4) K/uL Dare # (Auto) (0.24-0.82) K/uL Eos # (Auto) (0-0.50) K/uL Baso # (Auto) (0-0.2) K/uL Immature Gran # (Auto) (0.00-0.02) K/uL PT INR APTT PTT Ratio Sodium (136-145) mmol/L Potassium (3.5-5.1) mmol/L Chloride (98-107) mmol/L Carbon Dioxide (21-32) mmol/L Anion Gap (3-11) BUN (6-23) mg/dl Creatinine (0.6-1.2) mg/dl Est Cr Clr Drug Dosing ml/min Est GFR ( Amer) ml/min Est GFR (Non-Af Amer) ml/min BUN/Creatinine Ratio (10-20) Glucose (70-99(Fasting)) mg/dl Lactate 1.3 (0.4-2.0) mmol/L Calcium (8.5-10.1) mg/dl Total Bilirubin (0.2-1.0) mg/dl AST (13-39) U/L ALT (7-52) U/L Alkaline Phosphatase (34-104) U/L Ammonia (18-72) umol/L Troponin I High Sens (0-14) pg/ml Total Protein (6.0-8.3) gm/dl Albumin (3.4-5.0) gm/dl Globulin (2.5-4.0) gm/dl Albumin/Globulin Ratio (0.9-2) Urine Color Yellow Urine Appearance Clear (Clear) Urine pH 8.0 H (4.5-7.5) Ur Specific [place] 1.009 (1.000-1.030) Urine Protein Negative (Negative) Urine Glucose (UA) Negative (Negative) Urine Ketones Negative (Negative) Urine Blood Negative (Negative) Urine Nitrite Negative (Negative) Urine Bilirubin Negative (Negative) Urine Urobilinogen Negative (Negative) Ur Leukocyte Esterase 2+ H (Negative) Urine WBC (Auto) 10-30 H (0-5) /hpf Urine RBC (Auto) 0-4 (0-4) /hpf U Hyaline Cast (Auto) 0 (0-5) /lpf U Epithel Cells (Auto) 5-10 H (0-5) /lpf Urine Bacteria (Auto) 4+ H (Negative) Urine Opiates Screen Neg (Neg) Ur Methadone, Qual Neg (Neg) Urine Barbiturates Neg (Neg) Ur Phencyclidine (PCP) Neg (Neg) U Amphetamin/Meth Scrn Neg (Neg) MDMA (Ecstasy) Screen Neg (Neg) U Benzodiazepines Scrn Neg (Neg) Ur Cocaine Metabolite Neg (Neg) U Marijuana (THC) Screen Neg (Neg) 11/23/21 11/23/21 Range/Units 14:45 14:45 WBC (4.8-10.8) K/ul RBC (3.93-5.22) M/uL Hgb (12.0-16.0) g/dl Hct (34.1-44.9) % MCV (80.0-100.0) fL MCH (25.0-34.0) pg MCHC (32.0-36.0) g/dL RDW Std Deviation (36.4-46.3) fL RDW Coeff of Irina (11.5-14.5) % Plt Count (130-400) K/uL MPV (9.4-12.3) fL Immature Gran % (Auto) % Neut % (Auto) % Lymph % (Auto) % Dare % (Auto) % Eos % (Auto) % Baso % (Auto) % Neut # (Auto) (1.4-6.5) K/uL Lymph # (Auto) (1.2-3.4) K/uL Dare # (Auto) (0.24-0.82) K/uL Eos # (Auto) (0-0.50) K/uL Baso # (Auto) (0-0.2) K/uL Immature Gran # (Auto) (0.00-0.02) K/uL PT 12.1 H INR 1.1 APTT 24.7 PTT Ratio 0.9 Sodium (136-145) mmol/L Potassium (3.5-5.1) mmol/L Chloride (98-107) mmol/L Carbon Dioxide (21-32) mmol/L Anion Gap (3-11) BUN (6-23) mg/dl Creatinine (0.6-1.2) mg/dl Est Cr Clr Drug Dosing ml/min Est GFR ( Amer) ml/min Est GFR (Non-Af Amer) ml/min BUN/Creatinine Ratio (10-20) Glucose (70-99(Fasting)) mg/dl Lactate (0.4-2.0) mmol/L Calcium (8.5-10.1) mg/dl Total Bilirubin (0.2-1.0) mg/dl AST (13-39) U/L ALT (7-52) U/L Alkaline Phosphatase (34-104) U/L Ammonia 201.0 H (18-72) umol/L Troponin I High Sens (0-14) pg/ml Total Protein (6.0-8.3) gm/dl Albumin (3.4-5.0) gm/dl Globulin (2.5-4.0) gm/dl Albumin/Globulin Ratio (0.9-2) Urine Color Urine Appearance (Clear) Urine pH (4.5-7.5) Ur Specific [place] (1.000-1.030) Urine Protein (Negative) Urine Glucose (UA) (Negative) Urine Ketones (Negative) Urine Blood (Negative) Urine Nitrite (Negative) Urine Bilirubin (Negative) Urine Urobilinogen (Negative) Ur Leukocyte Esterase (Negative) Urine WBC (Auto) (0-5) /hpf Urine RBC (Auto) (0-4) /hpf U Hyaline Cast (Auto) (0-5) /lpf U Epithel Cells (Auto) (0-5) /lpf Urine Bacteria (Auto) (Negative) Urine Opiates Screen (Neg) Ur Methadone, Qual (Neg) Urine Barbiturates (Neg) Ur Phencyclidine (PCP) (Neg) U Amphetamin/Meth Scrn (Neg) MDMA (Ecstasy) Screen (Neg) U Benzodiazepines Scrn (Neg) Ur Cocaine Metabolite (Neg) U Marijuana (THC) Screen (Neg) Imaging Data Radiologist's Impression: Chest X-Ray 11/23/21 13:07 XR chest 1V portable HISTORY: Confusion COMPARISON: Chest 11/17/2021. FINDINGS: There are low lung volumes. No pneumothorax. No pleural effusion is. The cardiac silhouette remains mildly enlarged. Mild pulmonary vascular conges tion without overt edema, unchanged. Right jugular Port-A-Cath terminates at the distal SVC. Old, healed left humeral neck fracture. IMPRESSION: No change in the cardiomegaly and mild central pulmonary vascular congestion. ACT 112: Negative or not required by law. Electronically signed by: Talon Cruz M.D. 11/23/2021 2:[address] 11/23/21 14:13 CT OF THE HEAD WITHOUT CONTRAST CLINICAL HISTORY: Altered mental status. Confusion. COMPARISON STUDY: MRI of the brain July 30, 2021. Head CT September 22, 2021. CT DOSE: 614.27 mGy.cm TECHNIQUE: Helical axial images of the head were obtained without IV contrast. Automated exposure control was utilized for the study. A dose lowering technique was utilized adhering to the principles of ALARA. FINDINGS: No acute intracranial hemorrhage, midline shift or mass effect is present. White matter hypodensity suggests small vessel disease. These are unchanged. The ventricular system is unremarkable. The basal cisterns are patent. No extra-axial collections are present. There are no findings to suggest acute dural sinus thrombosis or acute territorial infarct. No significant calvarial abnormalities are present. Visualized portions of the sinuses and mastoid air cells are clear. Left nasal bone deformity is chronic. IMPRESSION: No acute intracranial findings. ACT 112: Negative or not required by law. Electronically signed by: Rolan Chan M.D. 11/23/2021 4:09 PM ECG Data Indication: + altered mental status Rate (beats per minute): 75 Rhythm: + normal sinus ECG Intervals/blocks: + Normal QRS, + Normal WI and + Normal QT-c ECG ST segments: + Normal ST segments MDM Narrative 1404: The patient was evaluated in room C5. A complete history and physical exam was performed Cardiac monitoring: An order was placed for continuous cardiac monitoring. The monitor shows a rate of 70 with sinus rhythm EMR reviewed. Patient was admitted to the hospital from November 09 to November 20, 2021. She was discharged from the hospital 3 days ago. During that admission the patient was admitted for UTI. 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 Patient's urine culture during this admission also grew out VRE. Patient was seen by [facility] infectious disease and they recommended daptomycin for 5 to 7 days given her multiple drug allergies. The patient was found to have an ammonia in the 80s which was at her baseline and continued on lactulose and rifaximin. 1625: Vital signs stable. Labs within normal limits with exception of an ammonia of 201, per the hospitalist previous notes the patient's baseline ammonia is around 80. Patient was given lactulose orally. Imaging within normal limits. Patient be admitted to the [facility] hospitalist team Dr. Freeman notified. Impression & Plan Acute hepatic encephalopathy Discharge Plan Visit Data Chief Complaint: Confusion Stated Complaint: CONFUSION, POSS SIDE EFFECT TO MEDICATION ED Provider: Guanakito Pope Discharge Problem: Acute hepatic encephalopathy Patient Disposition: Admitted As Inpatient Forms Stand Alone Forms: My [facility] Prescriptions Prescriptions: No Action albuterol sulfate 90 mcg/actuation HFA aerosol inhaler 2 puff inhalation Q4H PRN (Reason: shortness of breath) Qty: 1 3RF ropinirole 0.25 mg tablet 0.25 mg PO BID 90 Days Qty: 180 1RF (DME) pen needle, diabetic [BD Ultra-Fine [place] Pen Needle] 32 gauge x 5/32" needle See Rx Instructions .Route Qty: 400 3RF Rx Instructions: use 4 x daily insulin aspart U-100 [Novolog Flexpen U-100 Insulin] 100 unit/mL (3 mL) insulin pen 15 - 25 unit SQ TID MDD 60 units Qty: 30 5RF Rx Instructions: per sliding scale ipratropium-albuterol 0.5 mg-3 mg(2.5 mg base)/3 mL solution for nebulization 3 ml INH QID PRN (Reason: wheezing) Qty: 90 0RF teriparatide 20 mcg/dose (620mcg/2.48mL) pen injector 20 mcg subcut PM Qty: 7.44 0RF benztropine 1 mg tablet 1 mg PO TID 30 Days Qty: 90 5RF Xifaxan 550 mg tablet 550 mg PO BID Qty: 60 5RF topiramate 100 mg tablet 100 mg PO BID Qty: 60 5RF oxcarbazepine 300 mg tablet See Rx Instructions .ROUTE .COMPLEX Qty: 90 5RF Rx Instructions: 300 mg PO take one tablet in the morning, then take two tablets (600mg) in the evening; levothyroxine [Euthyrox] 50 mcg tablet 50 mcg PO QAM Qty: 30 2RF Qulipta 30 mg tablet 30 mg PO DAILY Qty: 30 2RF omeprazole 40 mg capsule,delayed release(DR/EC) 40 mg PO QAM Qty: 90 1RF hydrocortisone 10 mg tablet See Rx Instructions .ROUTE .COMPLEX Qty: 45 3RF Rx Instructions: take 10 mg in the morning and 5 mg every evening; levetiracetam 750 mg tablet 1,500 mg PO BID 30 Days Qty: 120 5RF cholecalciferol (vitamin D3) [Vitamin D3] 25 mcg (1,000 unit) capsule 5,000 unit PO QDL Label Comments: TAKES IN AFTERNOON promethazine 25 mg tablet 25 mg PO Q8H PRN (Reason: nausea and vomiting) Qty: 10 0RF ascorbate calcium (vitamin C) 500 mg tablet 500 mg PO QDL vitamin E (dl, acetate) 180 mg (400 unit) capsule 180 mg PO Q OTHER DAY (DME) OneTouch Verio test strips Strip See Rx Instructions .Route Qty: 50 5RF Rx Instructions: Test blood sugars once a day epinephrine [EpiPen 2-Garret] 0.3 mg/0.3 mL auto-injector 0.3 mg IM Q10M PRN (Reason: Anaphylaxis) lecithin 1,200 mg capsule 1,200 mg PO QDL cranberry 400 mg capsule 400 mg PO BIDM Rx Instructions: administer with a meal multivitamin [Multiple Vitamins] Tablet 1 tab PO QDL zinc 50 mg Tablet 50 mg PO QDL vitamin A 8,000 unit Capsule 8,000 unit PO QDL vitamin B complex Tablet 1 tab PO QDL Probiotic 3 billion cell Capsule 1 mmu cells PO QDL fexofenadine 60 mg Tablet 60 mg PO QAM calcium carbonate 500 mg calcium (1,250 mg) Tablet 500 mg PO QDL Blue-Emu Cream 1 applic topical HS famotidine 20 mg Tablet 20 mg PO HS Qty: 30 0RF lactulose 20 gram/30 mL Solution 30 g PO QID Qty: 3000 0RF Rx Instructions: please dispense 5400 mL (which would equal a 30 day supply) amiloride 5 mg Tablet 5 mg PO DAILY Qty: 30 0RF Tresiba FlexTouch U-100 100 unit/mL (3 mL) insulin pen 30 unit subcut QAM Qty: 15 1RF pravastatin 20 mg tablet 20 mg PO QAM Label Comments: this is a new medication per patients melatonin 5 mg tablet 10 mg PO HS Qty: 1 0RF Rx Instructions: pqoq-bga-kohlggs magnesium oxide 400 mg (241.3 mg magnesium) tablet 400 mg PO BID Qty: 0 0RF acetaminophen [Tylenol Extra Strength] 500 mg Tablet 1,000 mg PO HS Qty: 0 0RF acetaminophen [Tylenol Extra Strength] 500 mg tablet 500 mg PO BID PRN (Reason: Pain) diclofenac sodium [Voltaren Arthritis Pain] 1 % gel 4 g EXT QID PRN (Reason: Pain) sertraline 50 mg tablet 50 mg PO DAILY Refresh Optive Advanced 0.5-1-0.5 % drops 1 drops OPB QID Rx Instructions: PER PT'S , "USUALLY USES AT HS". nystatin 100,000 unit/mL Suspension 5 ml PO QID 5 Days Qty: 100 0RF daptomycin 500 mg recon soln 500 mg IV DAILY Qty: 5 0RF Rx Instructions: administer over 30 mins Referrals Referrals: Geri Mcgraw PA-C [Primary Care Provider] -
[2021-11-23 15:02] LABS: Appearance Urine Clear (Clear); Bacteria Urine Automated 4+ (Negative); Bilirubin Urine Negative (Negative); Blood Urine Negative (Negative); Cast Urine Automated 0 /lpf (0-5); Color Urine Yellow; Glucose Urine UA Negative (Negative); Ketones Urine Negative (Negative); Leukocyte Esterase Urine 2+ (Negative); Nitrite Urine Negative (Negative); Protein Urine Negative (Negative); RBC Urine Automated 0-4 /hpf (0-4); Specific Gravity Urine 1.009 (1.000-1.030); Urobilinogen Urine Negative (Negative)
[2021-11-23 15:09] LABS: Albumin Globulin Ratio 1.3 (0.9-2); Albumin Level 3.3 gm/dl (3.4-5.0); BUN Creatinine Ratio 28.6 (10-20); Bilirubin,Total 1.4 mg/dl (0.2-1.0); Calcium 8.7 mg/dl (8.5-10.1); Creatinine Clr Calc Pharmacy 106.7 ml/min; Globulin 2.5 gm/dl (2.5-4.0); Potassium 3.9 mmol/L (3.5-5.1); Total Protein 5.8 gm/dl (6.0-8.3)
[2021-11-23 15:10] LABS: Troponin I High Sensitivity 4.6 pg/ml (0-14)
[2021-11-23 15:13] LABS: Mean Corpuscular Hemoglobin 36.1 pg (25.0-34.0); Mean Corpuscular Hgb Conc 33.8 g/dL (32.0-36.0); Mean Corpuscular Volume 106.8 fL (80.0-100.0); RDW Coefficient of Variation 13.4 % (11.5-14.5); RDW Standard Deviation 52.3 fL (36.4-46.3); Red Blood Count 3.24 M/uL (3.93-5.22)
[2021-11-23 15:23] LABS: INR 1.1 (0.9-1.1); Partial Thromboplastin Ratio 0.9; Partial Thromboplastin Time 24.7 Seconds (21.0-31.0); Prothrombin Time 12.1 Seconds (9.0-12.0)
[2021-11-23 15:26] LABS: Amphetamines+Metham, Urine Neg (Neg); Barbiturates, Urine Neg (Neg); Benzodiazepine, Urine Neg (Neg); Cocaine, Urine Neg (Neg); MDMA (Ecstacy), Urine Neg (Neg); Methadone, Urine Neg (Neg); Opiate, Urine Neg (Neg); Phencyclidine, Urine Neg (Neg)
--- NOTE | 2021-11-23 16:00 | Electrocardiogram Report ---
Test Reason : Blood Pressure : / mmHG Vent. Rate : 075 BPM Atrial Rate : 075 BPM P-R Int : 152 ms QRS Dur : 100 ms QT Int : 410 ms P-R-T Axes : 036 -12 036 degrees QTc Int : 457 ms Poor data quality, interpretation may be adversely affected Normal sinus rhythm Minimal voltage criteria for LVH, may be normal variant Abnormal ECG When compared with ECG of 22-SEP-2021 14:46, No significant change Confirmed by Josh Renteria ([id number]) on 11/23/2021 3:59:59 PM Referred By: Confirmed By:Johs Renteria
[2021-11-23] MEDS ORDERED: LACTULOSE SYRUP 30 GM/45 ML UDP PO STA (16:02)
--- NOTE | 2021-11-23 16:12 | CT Scan Report ---
CT OF THE HEAD WITHOUT CONTRAST CLINICAL HISTORY: Altered mental status. Confusion. COMPARISON STUDY: MRI of the brain July 30, 2021. Head CT September 22, 2021. CT DOSE: 614.27 mGy.cm TECHNIQUE: Helical axial images of the head were obtained without IV contrast. Automated exposure con trol was utilized for the study. A dose lowering technique was utilized adhering to the principles o f ALARA. FINDINGS: No acute intracranial hemorrhage, midline shift or mass effect is present. White matter hyp odensity suggests small vessel disease. These are unchanged. The ventricular system is unremarkable. The basal cisterns are patent. No extra-axial collections are present. There are no findings to sugge st acute dural sinus thrombosis or acute territorial infarct. No significant calvarial abnormalities are present. Visualized portions of the sinuses and mastoid air cells are clear. Left nasal bone defo rmity is chronic. IMPRESSION: No acute intracranial findings. ACT 112: Negative or not required by law. Electronically signed by: Rolan Chan M.D. 11/23/2021 4:09 PM
--- NOTE | 2021-11-23 17:26 | History & Physical Report ---
Date of Service November 23, 2021 Assessment & Plan (1) Hepatic encephalopathy: Plan: -Admit to med/surge -Patient is currnetly afebbrile, hemodynamically stable, and stable on RA -Ammonia noted to be 218 in the ED, patient has a long history of medical non-complicance -Head CT negative for acute changes -Already received 1 dose of PO lactulose in the ED, will continue with QID dosing and aim for 3-4 bowel movements daily -Keep NPO except meds for now until she is alert and safe enough for a diet to avoid aspiration (2) UTI (urinary tract infection): Plan: -Patient was noted to have VRE UTI on prior admission -Was stated on daily IV daptomycin on the , received another dose on the prior to discharge per the Pharmacy -Unsure if she was getting it outpatient as her was gone prior to my exam -Will continue Dapto today (3) Cirrhosis: Plan: -See Hepatic encephalopathy -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 Freeman at the time of admission History of Present Illness Chief Complaint: Lethargy/confusion Primary Care Provider: Geri Mcgraw PA-C 55 year old female with multiple recent admissions to [facility] with a PMH significant for Nonalcoholic fatty liver disease with hepatic encephalopathy, adrenal insufficiency, DM II, tardive dyskinesia/parkinsonian symptoms,, and cu rrent UTI who presented to the [facility] ED on 11/23/21 with a chief complaint of letheragy and confusion. Per chart review, the patient was recently discharged from [facility] 11/20/21 for ESBL Klebsiella and VRE UTI. After she was initially treated for the ESBL Klebsiella UTI the patient again developed UTI symptoms. ID was consulted and recommended not treating her for further ESBL Klebsiella UTI's as she is chronically colonized. Regarding the VRE UTI, she was started on a 7 day course of Daptomycin, for which she was supposed to complete outpatient at the [facility]. In the ED the patient was given 30 gm PO lactulose. At the time of the exam the patient was sleeping. I was able to wake her with light touch and calling her name. She appeared confused at the time of the exam and was only oriented to self. History was unable to be obtained due to the patient's current mental status. Allergies Allergy/AdvReac Type Severity Reaction Status Date / Time metoclopramide Allergy Severe SEIZURES Verified 11/23/21 19:25 metronidazole Allergy Severe SEIZURE Verified 11/23/21 19:25 tramadol Allergy Severe SEIZURES Verified 11/23/21 19:25 amoxicillin Allergy Intermediate SEE COMMENT Verified 11/23/21 19:25 baclofen Allergy Intermediate RASH Verified 11/23/21 19:25 butalbital Allergy Intermediate HIVES Verified 11/23/21 19:25 dicyclomine Allergy Intermediate HIVES Verified 11/23/21 19:25 nitrofurantoin Allergy Intermediate HIVES/RASH/SEVERE Verified 11/23/21 19:25 [From Macrobid] ITCHING pollen extracts Allergy Intermediate Hives Verified 11/23/21 19:25 Sulfa (Sulfonamide Allergy Intermediate CAUSES Verified 11/23/21 19:25 Antibiotics) BLACK STOOLS Tetracyclines Allergy Intermediate DOXYCYCLINE Verified 11/23/21 19:25 -HIVES adhesive Allergy Mild RASH, Verified 11/23/21 19:25 DUODERM=RED,ITCHY celecoxib Allergy Mild HIVES Verified 11/23/21 19:25 sulindac Allergy Mild ALLERGY Verified 11/23/21 19:25 LISTED "CLONDORAL"--HIVES Cephalosporins AdvReac Severe TURNS Verified 11/23/21 19:25 STOOL VERY DARK paroxetine [From Paxil] AdvReac Severe Vomiting Verified 11/23/21 19:25 dextromethorphan AdvReac Mild Vomiting Verified 11/23/21 19:25 Home Medications Medication Instructions Recorded Confirmed Type multivitamin (Multiple Vitamins 1 tab PO QDL 12/26/17 11/23/21 History tablet) lactobacillus combination no.4 3 1 mmu cells PO QDL 09/20/18 11/23/21 History billion cell capsule (Probiotic) vitamin A 2,400 mcg capsule 8,000 unit PO QDL 09/20/18 11/23/21 History vitamin B complex 1 tab PO QDL 09/20/18 11/23/21 History zinc 50 mg tablet 50 mg PO QDL 02/09/19 11/23/21 History epinephrine 0.3 mg/0.3 mL 0.3 mg IM Q10M PRN Anaphylaxis 04/02/19 11/23/21 History injection, auto-injector (EpiPen 2-Garret) lecithin 1,200 mg capsule 1,200 mg PO QDL 04/29/19 11/23/21 History fexofenadine 60 mg tablet 60 mg PO QAM 04/12/20 11/23/21 History albuterol sulfate 90 mcg/actuation 2 puff inhalation Q4H PRN 05/31/20 11/23/21 Rx aerosol inhaler shortness of breath #1 inhaler cranberry 400 mg capsule 400 mg PO BIDM 06/08/20 11/23/21 History promethazine 25 mg tablet 25 mg PO Q8H PRN nausea and 10/11/20 11/23/21 Rx vomiting #10 tabs ascorbate calcium (vitamin C) 500 500 mg PO QDL 11/16/20 11/23/21 History mg tablet vitamin E (dl, acetate) 180 mg 180 mg PO Q OTHER DAY 11/16/20 11/23/21 History (400 unit) capsule cholecalciferol (vitamin D3) 25 5,000 unit PO QDL 11/30/20 11/23/21 History mcg (1,000 unit) capsule (Vitamin D3) pravastatin 20 mg tablet 20 mg PO QAM 12/05/20 11/23/21 History magnesium oxide 400 mg (241.3 mg 400 mg PO BID #0 tabs 01/02/21 11/23/21 Rx magnesium) tablet melatonin 5 mg tablet 10 mg PO HS #1 tab 01/02/21 11/23/21 Rx ropinirole 0.25 mg tablet 0.25 mg PO BID 90 days #180 tabs 01/10/21 11/23/21 Rx acetaminophen 500 mg tablet 1,000 mg PO HS #0 tabs 04/20/21 11/23/21 Rx (Tylenol Extra Strength) acetaminophen 500 mg tablet 500 mg PO BID PRN Pain 06/22/21 11/23/21 History (Tylenol Extra Strength) diclofenac sodium 1 % topical gel 4 g EXT QID PRN Pain 06/22/21 11/23/21 History (Voltaren Arthritis Pain) pen needle, diabetic 32 gauge x #400 ea 06/26/21 11/23/21 Rx 5/32" (BD Ultra-Fine Sheridan Pen Needle) insulin aspart U-100 100 unit/mL 15 - 25 unit (0.15 - 0.25 mL) 07/07/21 11/23/21 Rx (3 mL) subcutaneous pen (Novolog subcut TID #30 mL Flexpen U-100 Insulin aspart) blood sugar diagnostic (OneTouch #50 ea 07/17/21 11/23/21 Rx Verio test strips) ipratropium 0.5 mg-albuterol 3 mg 3 ml inhalation QID PRN wheezing 07/19/21 11/23/21 Rx (2.5 mg base)/3 mL nebulization #90 mL soln benztropine 1 mg tablet 1 mg PO TID 30 days #90 tabs 07/20/21 11/23/21 Rx teriparatide 20 mcg/dose (620 20 mcg (0.08 mL) subcut PM #7.44 mL 07/20/21 11/23/21 Rx mcg/2.48 mL) subcutaneous pen injector Blue-Emu Cream 1 applic topical HS 07/22/21 11/23/21 History calcium carbonate 500 mg calcium 500 mg PO QDL 07/22/21 11/23/21 History (1,250 mg) tablet rifaximin 550 mg tablet (Xifaxan) 550 mg PO BID hepatic 07/26/21 11/23/21 Rx 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 #60 tabs oxcarbazepine 300 mg tablet See Rx Instructions .Route 08/14/21 11/23/21 Rx .COMPLEX #90 tabs topiramate 100 mg tablet 100 mg PO BID #60 tabs 08/14/21 11/23/21 Rx levothyroxine 50 mcg tablet 50 mcg PO QAM #30 tabs 09/12/21 11/23/21 Rx (Euthyrox) amiloride 5 mg tablet 5 mg PO DAILY #30 tabs 10/23/21 11/23/21 Rx famotidine 20 mg tablet 20 mg PO HS #30 tabs 10/23/21 11/23/21 Rx insulin degludec 100 unit/mL (3 30 unit (0.3 mL) subcut QAM #15 mL 10/23/21 11/23/21 Rx mL) subcutaneous pen (Tresiba FlexTouch U-100 insulin) lactulose 20 gram/30 mL oral 30 g (45 mL) PO QID #3,000 mL 10/23/21 11/23/21 Rx solution omeprazole 40 mg capsule,delayed 40 mg PO QAM #90 caps 11/05/21 11/23/21 Rx release hydrocortisone 10 mg tablet See Rx Instructions .Route 11/07/21 11/23/21 Rx .COMPLEX #45 tabs tjodxtprocwaeioatzpffr-xmhkjyiq-iwdwqkyp 1 drops OPB QID 11/10/21 11/23/21 History 80 0.5 %-1 %-0.5 % eye drops (Refresh Optive Advanced) sertraline 50 mg tablet 50 mg PO DAILY 11/10/21 11/23/21 History daptomycin 500 mg intravenous 500 mg IV DAILY #5 ea 11/20/21 11/23/21 Rx solution nystatin 100,000 unit/mL oral 5 ml PO QID 5 days #100 mL 11/20/21 11/23/21 Rx suspension levetiracetam 750 mg tablet 1,500 mg PO BID 30 days #120 tabs 11/21/21 11/23/21 Rx atogepant 30 mg tablet (Qulipta) 30 mg PO DAILY PRN Migraine 11/23/21 11/23/21 History Headache Past Med/Surg History Medical History Acute alteration in mental status Acute alteration in mental status Acute confusion Acute dehydration Acute hepatic encephalopathy Acute hepatic encephalopathy Acute hepatic encephalopathy Altered mental status Constipation Depression Diabetes mellitus Electrolyte abnormality Hyperammonemia Hyperammonemia Hyperbilirubinemia Nonalcoholic fatty liver disease Parkinsonism Sleepiness Spleen enlargement Thrombocytopenia Urinary tract infection UTI (urinary tract infection) Surgical History Femur fracture, right SPIRAL FRACTURE REPAIRED (HARDWARE REPAIRED) History of ankle surgery RT/LEFT History of appendectomy History of cholecystectomy History of colonoscopy History of esophagogastroduodenoscopy (EGD) History of kyphoplasty History of open reduction and internal fixation (ORIF) procedure RT HIP History of surgery (~06/02/20) screw/plate removal from left humerus History of surgery on arm LEFT (HARDWARE INTACT) History of tooth extraction History of vascular access device right A port Hx of carpal tunnel repair RT/LEFT Hx of cataract extraction RT/LEFT S/P laminectomy lumbar spine S/P nasal surgery nasal bone fracture repair S/P [facility] (1997) Family History Other Adopted No pertinent family history Social History Smoking Status: Never smoker Tobacco Type: Cigarettes Second Hand Exposure: No; Hx Alcohol Use: No Hx Substance Use: No Preferred Language: Yi Communication Ability: Effective Visual Impairment: No Limitations Dye Jig Operator Required: No Beliefs That Will Affect Care: None marital status: Current Living Situation: Spouse Current Living Situation Comment: Lives with current occupational status: unemployed and disabled How many Children do You have: 0 Feels Safe at Home: Yes Seatbelt Use: always Assistive Devices: Wheelchair Review of Systems Review of Systems: ROS unable to be obtained at the time of the exam due to the patient's current mental status Physical Exam Physical Exam: Physical Exam: General: In no acute distress, fatigued, stated age, malnourished and poor hygiene HEENT: Normocephalic, atraumatic, no scleral icterus, pupils around round, symmetrical, and reactive to light, moist mucus membranes, trachea midline, no thyromegaly Chest/Pulm: mediport is located in the top right chest without signs of infection, No respiratory distress, symmetrical chest expansion, clear breath sounds throughout Cardiac: RRR, systolic murmur noted Abdomen: Negative for bruising, normoactive bowel sounds, soft, non-tender to palpation throughout Musculoskeletal: Symmetrical and without signs of acute trauma, upper and lower extremities with full ROM Extremities: Radial, dorsalis pedis, and posterior tibial pulses are intact and symmetrical, no edema noted in the BL LE's Skin: Warm, dry, no rashes , lesions, or scars noted Neuro: Alert, oriented to person only, patient with baseline tardive dyskinesia, no other focal neuro defects on exam Psych: No acute distress, currently fatigued and confused Results & Data Results & Data ([facility]) Vital Signs (Past 12 Hours) Vital Signs Temp Pulse Pulse Resp BP BP Pulse Ox 11/23/21 16:30 76 20 134/75 11/23/21 16:09 78 22 11/23/21 16:09 137/68 11/23/21 16:10 75 18 137/68 98 11/23/21 15:34 11/23/21 15:17 36.9 C 78 22 123/63 97 11/23/21 14:10 98 11/23/21 14:10 82 20 97 11/23/21 14:10 96 11/23/21 13:03 83 22 141/76 H 98 O2 Del Method 11/23/21 16:30 Room Air 11/23/21 16:09 11/23/21 16:09 11/23/21 16:10 Room Air 11/23/21 15:34 Room Air 11/23/21 15:17 Room Air 11/23/21 14:10 Room Air 11/23/21 14:10 Room Air 11/23/21 14:10 Room Air 11/23/21 13:03 Room Air Laboratory Results Abnormal lab results 11/23/21 11/23/21 11/23/21 Range/Units 14:20 14:20 14:30 WBC 3.87 L (4.8-10.8) K/ul RBC 3.24 L (3.93-5.22) M/uL Hgb 11.7 L (12.0-16.0) g/dl MCV 106.8 H (80.0-100.0) fL MCH 36.1 H (25.0-34.0) pg RDW Std Deviation 52.3 H (36.4-46.3) fL Plt Count 75 L (130-400) K/uL Lymph # (Auto) 0.90 L (1.2-3.4) K/uL PT (9.0-12.0) Seconds Chloride 114 H (98-107) mmol/L BUN/Creatinine Ratio 28.6 H (10-20) Glucose 141 H (70-99(Fasting)) mg/dl Total Bilirubin 1.4 H (0.2-1.0) mg/dl Alkaline Phosphatase 130 H (34-104) U/L Ammonia (18-72) umol/L Total Protein 5.8 L (6.0-8.3) gm/dl Albumin 3.3 L (3.4-5.0) gm/dl Urine pH 8.0 H (4.5-7.5) Ur Leukocyte Esterase 2+ H (Negative) Urine WBC (Auto) 10-30 H (0-5) /hpf U Epithel Cells (Auto) 5-10 H (0-5) /lpf Urine Bacteria (Auto) 4+ H (Negative) 11/23/21 11/23/21 Range/Units 14:45 14:45 WBC (4.8-10.8) K/ul RBC (3.93-5.22) M/uL Hgb (12.0-16.0) g/dl MCV (80.0-100.0) fL MCH (25.0-34.0) pg RDW Std Deviation (36.4-46.3) fL Plt Count (130-400) K/uL Lymph # (Auto) (1.2-3.4) K/uL PT 12.1 H (9.0-12.0) Seconds Chloride (98-107) mmol/L BUN/Creatinine Ratio (10-20) Glucose (70-99(Fasting)) mg/dl Total Bilirubin (0.2-1.0) mg/dl Alkaline Phosphatase (34-104) U/L Ammonia 201.0 H (18-72) umol/L Total Protein (6.0-8.3) gm/dl Albumin (3.4-5.0) gm/dl Urine pH (4.5-7.5) Ur Leukocyte Esterase (Negative) Urine WBC (Auto) (0-5) /hpf U Epithel Cells (Auto) (0-5) /lpf Urine Bacteria (Auto) (Negative) Diagnostic Findings Chest X-Ray 11/23/21 13:07 XR chest 1V portable HISTORY: Confusion COMPARISON: Chest 11/17/2021. FINDINGS: There are low lung volumes. No pneumothorax. No pleural effusion is. The cardiac silhouette remains mildly enlarged. Mild pulmonary vascular congestion without overt edema, unchanged. Right jugular Port-A-Cath terminates at the distal SVC. Old, healed left humeral neck fracture. IMPRESSION: No change in the cardiomegaly and mild central pulmonary vascular congestion. ACT 112: Negative or not required by law. Electronically signed by: Talon Cruz M.D. 11/23/2021 2:[address] 11/23/21 14:13 CT OF THE HEAD WITHOUT CONTRAST CLINICAL HISTORY: Altered mental status. Confusion. COMPARISON STUDY: MRI of the brain July 30, 2021. Head CT September 22, 2021. CT DOSE: 614.27 mGy.cm TECHNIQUE: Helical axial images of the head were obtained without IV contrast. Automated exposure control was utilized for the study. A dose lowering technique was utilized adhering to the principles of ALARA. FINDINGS: No acute intracranial hemorrhage, midline shift or mass effect is present. White matter hypodensity suggests small vessel disease. These are unchanged. The ventricular system is unremarkable. The basal cisterns are paten t. No extra-axial collections are present. There are no findings to suggest acute dural sinus thrombosis or acute territorial infarct. No significant calvarial abnormalities are present. Visualized portions of the sinuses and mastoid air cells are clear. Left nasal bone deformity is chronic. IMPRESSION: No acute intracranial findings. ACT 112: Negative or not required by law. Electronically signed by: Rolan Chan M.D. 11/23/2021 4:09 PM Medications Administered Lactulose (Lactulose Syrup 30 Gm/45 Ml Udp) 30 gm PO NOW STA Stop: 11/23/21 16:03 Last Admin: 11/23/21 16:38 Dose: 30 gm Documented By: SHYANN ECG Additional Comments: 23-NOV-2021 14:03:46 [facility]-EDSTAT ROUTINE RETRIEVAL Poor data quality, interpretation may be adversely affected Normal sinus rhythm Minimal voltage criteria for LVH, may be normal variant Abnormal ECG When compared with ECG of 22-SEP-2021 14:46, No significant change Confirmed by Josh Renteria ([id number]) on 11/23/2021 3:59:59 PM Code Status & VTE Plan Code Status Full code VTE Prophylaxis Plan VTE Prophylaxis will be ordered: Yes Supervising Physician Co-Signing Physician Notes I supervised Mehran Salazar PA-C on this admission. I interviewed and examined the patient independently of him. The plan is as written in his note except for any following changes/exceptions: None 55yo F/ w/ hx of cirrhosis who is well known to our service. She presents with high blood sugar yesterday, then lows overnight. got nervous and brought her in. Maybe some mild confusion, though overall, close to baseline. PG Care Time/CCT Total # of Minutes Spent Total Time Spent with Patient: Total time spent is greater than 50% in coordination of care (as documented) at patient's floor/unit and/or counseling patient: C[place] [address] Initial Inpt Care Lvl 1 Patient Type Established Medical Decision Making Straight Forward Diagnoses Hepatic encephalopathy K72.90 UTI (urinary tract infection) N30.00 Hematuria presence: without hematuria Urinary tract infection type: acute cystitis Cirrhosis K74.60 Adrenal insufficiency E27.40 Diabetes mellitus E11.9 Tardive dyskinesia G24.01 Depression F32.9 Dyslipidemia E78.5 (1) UTI (urinary tract infection) Hematuria presence: without hematuria Urinary tract infection type: acute cystitis Qualified Code(s): N30.00 - Acute cystitis without hematuria
[2021-11-23] MEDS ORDERED: DEXTROSE 50% 50 ML SYRINGE IV PRN ×2 (20:39→22:00)
[2021-11-23] MEDS ORDERED: CARBOHYDRATES FOR HYPOGLYCEMIA PO PRN ×2 (20:39→22:00)
[2021-11-23] MEDS ORDERED: GLUCOSE 10 TAB/TUBE PO PRN ×2 (20:39→22:00)
[2021-11-23] MEDS ORDERED: ALBUT/IPRATROP 3MG/0.5MG NEB 3 ML VIAL INH PRN (20:39)
[2021-11-23] MEDS ORDERED: GLUCOSE 40% GEL 15 GM TUBE PO PRN ×2 (20:39→22:00)
[2021-11-23] MEDS ORDERED: ACETAMINOPHEN 325 MG TAB PO PRN (20:39)
[2021-11-23] MEDS ORDERED: DAPTOmycin 500 MG VIAL IV SCH (20:39)
[2021-11-23] MEDS ORDERED: ALBUTEROL HFA 8 GM INHALER INH PRN (20:39)
[2021-11-23] MEDS ORDERED: GLUCAGON FOR INJ 1 MG VIAL SQ PRN (20:39)
[2021-11-23] MEDS ORDERED: GLUCAGON FOR INJ 1 MG VIAL IM PRN (22:00)
[2021-11-23] MEDS ORDERED: INSULIN ASPART PER UNIT SC SCH (22:00)
[2021-11-23] MEDS: BENZTROPINE MESYLATE 1 MG TAB PO SCH (22:57)
[2021-11-23] MEDS: rOPINIRole HCL 0.25 MG TABLET PO SCH (22:57)
[2021-11-23] MEDS: MAGNESIUM OXIDE 400 MG TAB PO SCH (22:57)
[2021-11-23] MEDS: FAMOTIDINE 20 MG TAB PO SCH (22:57)
[2021-11-23] MEDS: levETIRAcetam 500 MG TAB PO SCH (22:57)
[2021-11-23] MEDS: DAPTOmycin 400 MG in SYRINGE 0 ML IV SCH (22:57)
[2021-11-23] MEDS: HYDROCORTISONE 10 MG TAB PO SCH (22:57)
[2021-11-23] MEDS: ENOXAPARIN INJ 40 MG/0.4 ML SYR SQ SCH (22:58)
[2021-11-23] MEDS: NYSTATIN SUSP 500,000 U/5 ML UDC PO SCH (22:58)
[2021-11-23] MEDS: rifAXIMin 550 MG TABLET PO SCH (22:58)
[2021-11-23] MEDS: TOPIRAMATE 100 MG TAB PO SCH (22:58)
[2021-11-23] MEDS: OXcarbazepine 150 MG TABLET PO SCH (22:58)
[2021-11-23] MEDS: LACTULOSE SYRUP 30 GM/45 ML UDP PO SCH (22:59)
[2021-11-24] MEDS: INSULIN ASPART PER UNIT SC SCH ×5 (01:36→21:34)
[2021-11-24] MEDS: LEVOTHYROXINE SODIUM 50 MCG TABLET PO SCH (05:31)
[2021-11-24 08:08] LABS: Albumin Globulin Ratio 1.4 (0.9-2); BUN Creatinine Ratio 23.9 (10-20); Bilirubin,Total 1.4 mg/dl (0.2-1.0); Calcium 8.1 mg/dl (8.5-10.1); Creatinine Clr Calc Pharmacy 100.3 ml/min; Est GFR (African American) 114.7 ml/min; Globulin 2.1 gm/dl (2.5-4.0); Potassium 3.7 mmol/L (3.5-5.1); Total Protein 5.1 gm/dl (6.0-8.3)
[2021-11-24] MEDS: rifAXIMin 550 MG TABLET PO SCH ×2 (08:50→21:12)
[2021-11-24] MEDS: levETIRAcetam 500 MG TAB PO SCH ×2 (08:50→21:12)
[2021-11-24] MEDS: BENZTROPINE MESYLATE 1 MG TAB PO SCH ×3 (08:50→21:08)
[2021-11-24] MEDS: rOPINIRole HCL 0.25 MG TABLET PO SCH ×2 (08:50→21:08)
[2021-11-24] MEDS: NYSTATIN SUSP 500,000 U/5 ML UDC PO SCH ×4 (08:50→21:13)
[2021-11-24] MEDS: TOPIRAMATE 100 MG TAB PO SCH ×2 (08:51→21:12)
[2021-11-24] MEDS: MAGNESIUM OXIDE 400 MG TAB PO SCH ×2 (08:51→21:12)
[2021-11-24] MEDS: LACTULOSE SYRUP 30 GM/45 ML UDP PO SCH ×4 (08:51→21:13)
[2021-11-24] MEDS: SERTRALINE HCL 50 MG TABLET PO SCH (08:52)
[2021-11-24] MEDS: PRAVASTATIN SOD 20 MG TAB PO SCH (08:53)
[2021-11-24] MEDS: HYDROCORTISONE 10 MG TAB PO SCH ×2 (08:54→21:11)
[2021-11-24] MEDS: OXcarbazepine 150 MG TABLET PO SCH ×2 (08:54→21:09)
[2021-11-24] MEDS: aMILoride HCL 5 MG TAB PO SCH (08:55)
[2021-11-24] MEDS: PANTOprazole 40 MG TAB PO SCH (08:55)
--- NOTE | 2021-11-24 10:15 | Ultrasound Report ---
ULTRASOUND KIDNEYS AND BLADDER CLINICAL HISTORY: Recurrent urinary tract infection. COMPARISON STUDY: Numerous prior abdominal CT scans, most recently dated 11/09/2021. TECHNIQUE: Real-time, grayscale, and color flow sonography of the kidneys and bladder is performed. I mages are reviewed in the transverse and longitudinal planes. The examination is degraded by large syl dy habitus and overlying bowel gas. FINDINGS: Kidneys: The kidneys are atrophic. Echotexture there is normal. The right kidney measures 7.4 cm in l ength and the left kidney measures 9.4 cm. There is no hydronephrosis. No shadowing renal calculi ar e identified. There is no sonographic evidence of contour deforming renal mass lesion. No perinephric fluid is identified. Bladder: The bladder wall appears mildly thickened. Ureteral jets were not seen. IMPRESSION: 1. The kidneys are atrophic and without hydronephrosis. 2. The bladder wall appears thickened. Correlate with clinical findings and urinalysis. ACT 112: Negative or not required by law. Electronically signed by: Aiden Randolph M.D. 11/24/2021 10:13 AM
[2021-11-24] MEDS ORDERED: NON-FORMULARY MEDICATION (Vitamin B Complex Tablet) PO SCH (11:30)
[2021-11-24] MEDS ORDERED: NON-FORMULARY MEDICATION (Vitamin A 8,000 unit Capsule) PO SCH (11:30)
[2021-11-24] MEDS: ASCORBIC ACID 500 MG TAB PO SCH (12:40)
[2021-11-24] MEDS: ARTIFICIAL TEARS OP SCH ×4 (12:40→21:13)
[2021-11-24] MEDS: ADVANCED PROBIOTIC 1250 MG CAPSULE PO SCH (12:41)
[2021-11-24] MEDS: CALCIUM CARBONATE 1250MG TAB PO SCH (12:41)
[2021-11-24] MEDS: ZINC SULFATE 220 MG CAPSULE PO SCH (12:41)
[2021-11-24] MEDS: CHOLECALCIFEROL 1,000 UNITS 25 MCG TAB PO SCH (12:42)
[2021-11-24] MEDS: TOCOPHERYL, DL-ALPHA 400 UNITS 180 MG CAP PO SCH (12:42)
[2021-11-24] MEDS: VITAMIN B COMPLEX TAB PO SCH (12:42)
--- NOTE | 2021-11-24 18:45 | Hospitalist Progress Note ---
Date of Service November 24, 2021 Assessment & Plan (1) Hepatic encephalopathy: Plan: - -Ammonia noted to be 218 now down to be low 100s after treatment with her typical lactulose dosing, patient has a long history of medical non-complicance -Head CT negative for acute changes -patient awake alert able eat food (2) UTI (urinary tract infection): Plan: -Patient was noted to have VRE UTI on prior admission -Was stated on daily IV daptomycin on the , received another dose on the prior to discharge per the Pharmacy -Unsure if she was getting it outpatient ultrasound of urinary system does not show any nidus for retention of infection. -Will continue Dapto today (3) Cirrhosis: Plan: -See Hepatic encephalopathy -Continue FORESTRY BIOLOGY SPECIALIST lactulose -Continue Rifaximin -Continue Amiloride (4) Adrenal insufficiency: Plan: -Continue FORESTRY BIOLOGY SPECIALIST Hydrocortisone -No clinical need for stress hydrocortisone at this time (5) Diabetes mellitus: Plan: -Will start with q6h accu checks -Correction factor of 30 and Carb ration of 12 when eating (6) Tardive dyskinesia: Plan: -Continue topiramte, ropinirole, oxcarbazepine, Keppra and Benztropine (7) Depression: Plan: Continue Sertraline 50 mg daily (8) Dyslipidemia: Plan: -FORESTRY BIOLOGY SPECIALIST statin Admission and Anticipated Discharge Date Admission Date: November 23, 2021 Subjective pt seems back to baseline, was not eating well prior to arrival that maybe associated wit low blood glucose, ammonia has normalized Review of Systems Review of Systems: Mild distress and fatigue patient is chronically ill has tardive dyskinesia and some baseline weakness no headache, no visual changes no speech or swallowing issues no chest pain, pressure or palpitations no shortness of breath, cough or wheezes no abdominal pain, nausea or vomiting, diarrhea or constipation no dysuria, hematuria or frequency no focal joint pain or swelling no back pain, CVA tenderness or radicular pain no bruising, bleeding or rashes no focal signs of weakness or numbness or altered sensation no complaints of anxiety or depression.. Physical Exam Physical Exam: The patient appeared stable but chronically ill Vital signs as documented. Lungs are clear to auscultation and appear unlabored Cardiac exam, Rhythm is regular.. No murmurs, rubs or gallops. Abdominal exam reveals normal bowel sounds, soft non tender, no masses Extremities are nonedematous and both pedal pulses are normal. Neurologic exam is alert and oriented, no focal loss of strength or sensation dyskinetic movements are present but typical for her Skin is without bruises or rashes Psychologically is without concerns for anxiety or depression. Results & Data Results & Data ([facility]) Vital Signs (Past 12 Hours) Vital Signs Temp Pulse Pulse Resp BP Pulse Ox O2 Del Method 11/24/21 16:00 98.6 F 83 18 126/67 96 Room Air 11/24/21 08:48 98.8 F 64 18 122/70 98 Room Air PG Care Time/CCT Total # of Minutes Spent Total Time Spent with Patient: Total time spent is greater than 50% in coordination of care (as documented) at patient's floor/unit and/or counseling patient: Coding Level of Care Code 05478 Subseq Hosp Care Lvl 2 Diagnoses Hepatic encephalopathy K72.90 UTI (urinary tract infection) N30.00 Hematuria presence: without hematuria Urinary tract infection type: acute cystitis Cirrhosis K74.60 Adrenal insufficiency E27.40 Diabetes mellitus E11.9 Tardive dyskinesia G24.01 Depression F32.9 Dyslipidemia E78.5 (1) UTI (urinary tract infection) Hematuria presence: without hematuria Urinary tract infection type: acute cystitis Qualified Code(s): N30.00 - Acute cystitis without hematuria
[2021-11-24] MEDS: FAMOTIDINE 20 MG TAB PO SCH (21:08)
[2021-11-24] MEDS: ENOXAPARIN INJ 40 MG/0.4 ML SYR SQ SCH ×2 (21:16→21:26)
[2021-11-24] MEDS: DAPTOmycin 400 MG in SYRINGE 0 ML IV SCH (21:27)
[2021-11-24] MEDS: HEPARIN 100 UNIT/ML 5ML FLUSH FLUSH PRN (21:32)
[2021-11-25] MEDS: LEVOTHYROXINE SODIUM 50 MCG TABLET PO SCH (06:22)
[2021-11-25] MEDS: BENZTROPINE MESYLATE 1 MG TAB PO SCH ×3 (08:40→20:27)
[2021-11-25] MEDS: MAGNESIUM OXIDE 400 MG TAB PO SCH ×2 (08:40→20:27)
[2021-11-25] MEDS: rOPINIRole HCL 0.25 MG TABLET PO SCH ×2 (08:40→20:27)
[2021-11-25] MEDS: OXcarbazepine 150 MG TABLET PO SCH ×2 (08:41→20:27)
[2021-11-25] MEDS: aMILoride HCL 5 MG TAB PO SCH (08:41)
[2021-11-25] MEDS: TOPIRAMATE 100 MG TAB PO SCH ×2 (08:41→20:27)
[2021-11-25] MEDS: NYSTATIN SUSP 500,000 U/5 ML UDC PO SCH ×4 (08:42→20:27)
[2021-11-25] MEDS: levETIRAcetam 500 MG TAB PO SCH ×2 (08:42→20:27)
[2021-11-25] MEDS: SERTRALINE HCL 50 MG TABLET PO SCH (08:42)
[2021-11-25] MEDS: rifAXIMin 550 MG TABLET PO SCH ×2 (08:42→20:27)
[2021-11-25] MEDS: PANTOprazole 40 MG TAB PO SCH (08:43)
[2021-11-25] MEDS: HYDROCORTISONE 10 MG TAB PO SCH ×2 (08:43→20:28)
[2021-11-25] MEDS: ARTIFICIAL TEARS OP SCH ×4 (08:43→20:28)
[2021-11-25] MEDS: LACTULOSE SYRUP 30 GM/45 ML UDP PO SCH ×4 (08:44→20:28)
[2021-11-25] MEDS: PRAVASTATIN SOD 20 MG TAB PO SCH (08:45)
[2021-11-25] MEDS: INSULIN ASPART PER UNIT SC SCH ×4 (09:18→20:42)
[2021-11-25 09:48] LABS: Albumin Globulin Ratio 1.3 (0.9-2); Albumin Level 3.2 gm/dl (3.4-5.0); BUN Creatinine Ratio 20.3 (10-20); Bilirubin,Total 1.7 mg/dl (0.2-1.0); Calcium 8.3 mg/dl (8.5-10.1); Creatinine Clr Calc Pharmacy 105.1 ml/min; Est GFR (African American) 116.4 ml/min; Est GFR (Non-African American) 100.5 ml/min; Globulin 2.5 gm/dl (2.5-4.0); Total Protein 5.7 gm/dl (6.0-8.3)
[2021-11-25] MEDS: CHOLECALCIFEROL 1,000 UNITS 25 MCG TAB PO SCH (12:01)
[2021-11-25] MEDS: VITAMIN B COMPLEX TAB PO SCH (12:02)
[2021-11-25] MEDS: ADVANCED PROBIOTIC 1250 MG CAPSULE PO SCH (12:02)
[2021-11-25] MEDS: ASCORBIC ACID 500 MG TAB PO SCH (12:02)
[2021-11-25] MEDS: CALCIUM CARBONATE 1250MG TAB PO SCH (12:02)
[2021-11-25] MEDS: ZINC SULFATE 220 MG CAPSULE PO SCH (12:05)
--- NOTE | 2021-11-25 18:19 | Hospitalist Progress Note ---
Date of Service November 25, 2021 Assessment & Plan (1) Hepatic encephalopathy: Plan: - -Ammonia noted to be 218 now down to be low 100s after treatment with her typical lactulose dosing, patient has a long history of medical non-complicance -Head CT negative for acute changes -patient awake alert able eat food (2) UTI (urinary tract infection): Plan: -Patient was noted to have VRE UTI on prior admission -pt has grown esbl Klebsiella will start ertapenem in preparation of home use (3) Cirrhosis: Plan: -See Hepatic encephalopathy -Continue HEALTH SERVICES DIRECTOR lactulose -Continue Rifaximin -Continue Amiloride (4) Adrenal insufficiency: Plan: -Continue HEALTH SERVICES DIRECTOR Hydrocortisone -No clinical need for stress hydrocortisone at this time (5) Diabetes mellitus: Plan: -Will start with q6h accu checks -Correction factor of 30 and Carb ration of 12 when eating (6) Tardive dyskinesia: Plan: -Continue topiramte, ropinirole, oxcarbazepine, Keppra and Benztropine (7) Depression: Plan: Continue Sertraline 50 mg daily (8) Dyslipidemia: Plan: -HEALTH SERVICES DIRECTOR statin Admission and Anticipated Discharge Date Admission Date: November 23, 2021 Subjective pt seems back to baseline, was not eating well prior to arrival that maybe associated wit low blood glucose, ammonia has normalized uti is now Klebsiella snesitive to penems, starting ertapenem Review of Systems Review of Systems: Mild distress and fatigue patient is chronically ill has tardive dyskinesia and some baseline weakness no headache, no visual changes no speech or swallowing issues no chest pain, pressure or palpitations no shortness of breath, cough or wheezes no abdominal pain, nausea or vomiting, diarrhea or constipation no dysuria, hematuria or frequency no focal joint pain or swelling no back pain, CVA tenderness or radicular pain no bruising, bleeding or rashes no focal signs of weakness or numbness or altered sensation no complaints of anxiety or depression.. Physical Exam Physical Exam: The patient appeared stable but chronically ill Vital signs as documented. Lungs are clear to auscultation and appear unlabored Cardiac exam, Rhythm is regular.. No murmurs, rubs or gallops. Abdominal exam reveals normal bowel sounds, soft non tender, no masses Extremities are nonedematous and both pedal pulses are normal. Neurologic exam is alert and oriented, no focal loss of strength or sensation dyskinetic movements are present but typical for her Skin is without bruises or rashes Psychologically is without concerns for anxiety or depression. Results & Data Results & Data ([facility]) Vital Signs (Past 12 Hours) Vital Signs Temp Pulse Resp BP Pulse Ox O2 Del Method 11/25/21 08:29 98.2 F 73 18 161/74 H 97 Room Air PG Care Time/CCT Total # of Minutes Spent Total Time Spent with Patient: Total time spent is greater than 50% in coordination of care (as documented) at patient's floor/unit and/or counseling patient: Coding Level of Care Code 80964 Subseq Hosp Care Lvl 2 Diagnoses Hepatic encephalopathy K72.90 UTI (urinary tract infection) N30.00 Hematuria presence: without hematuria Urinary tract infection type: acute cystitis Cirrhosis K74.60 Adrenal insufficiency E27.40 Diabetes mellitus E11.9 Tardive dyskinesia G24.01 Depression F32.9 Dyslipidemia E78.5 (1) UTI (urinary tract infection) Hematuria presence: without hematuria Urinary tract infection type: acute cystitis Qualified Code(s): N30.00 - Acute cystitis without hematuria
[2021-11-25] MEDS: ERTAPENEM SODIUM 1,000 MG in SYRINGE 0 ML IV SCH (20:16)
[2021-11-25] MEDS: HEPARIN 100 UNIT/ML 5ML FLUSH FLUSH PRN (20:17)
[2021-11-25] MEDS: FAMOTIDINE 20 MG TAB PO SCH (20:27)
[2021-11-25] MEDS: ENOXAPARIN INJ 40 MG/0.4 ML SYR SQ SCH (20:28)
[2021-11-26] MEDS: LEVOTHYROXINE SODIUM 50 MCG TABLET PO SCH (04:40)
[2021-11-26] MEDS: NYSTATIN SUSP 500,000 U/5 ML UDC PO SCH ×3 (08:21→17:55)
[2021-11-26] MEDS: rifAXIMin 550 MG TABLET PO SCH (08:21)
[2021-11-26] MEDS: BENZTROPINE MESYLATE 1 MG TAB PO SCH ×2 (08:21→13:06)
[2021-11-26] MEDS: HYDROCORTISONE 10 MG TAB PO SCH (08:21)
[2021-11-26] MEDS: rOPINIRole HCL 0.25 MG TABLET PO SCH (08:22)
[2021-11-26] MEDS: PANTOprazole 40 MG TAB PO SCH (08:23)
[2021-11-26] MEDS: SERTRALINE HCL 50 MG TABLET PO SCH (08:25)
[2021-11-26] MEDS: TOPIRAMATE 100 MG TAB PO SCH (08:25)
[2021-11-26] MEDS: levETIRAcetam 500 MG TAB PO SCH (08:25)
[2021-11-26] MEDS: aMILoride HCL 5 MG TAB PO SCH (08:26)
[2021-11-26] MEDS: OXcarbazepine 150 MG TABLET PO SCH (08:27)
[2021-11-26] MEDS: ARTIFICIAL TEARS OP SCH ×3 (08:27→17:55)
[2021-11-26] MEDS: LACTULOSE SYRUP 30 GM/45 ML UDP PO SCH ×3 (08:27→17:57)
[2021-11-26] MEDS: MAGNESIUM OXIDE 400 MG TAB PO SCH (08:28)
[2021-11-26] MEDS: PRAVASTATIN SOD 20 MG TAB PO SCH (08:28)
[2021-11-26] MEDS: INSULIN ASPART PER UNIT SC SCH ×3 (08:41→17:55)
[2021-11-26] MEDS ORDERED: ERTAPENEM SODIUM 10 ML IV SCH (09:00)
[2021-11-26 09:53] LABS: Albumin Globulin Ratio 1.2 (0.9-2); Albumin Level 3.3 gm/dl (3.4-5.0); BUN Creatinine Ratio 16.7 (10-20); Bilirubin,Total 1.5 mg/dl (0.2-1.0); Calcium 8.3 mg/dl (8.5-10.1); Creatinine Clr Calc Pharmacy 93.4 ml/min; Est GFR (African American) 109.3 ml/min; Est GFR (Non-African American) 94.3 ml/min; Globulin 2.7 gm/dl (2.5-4.0); Potassium 4.1 mmol/L (3.5-5.1)
--- NOTE | 2021-11-26 11:25 | Hospitalist Progress Note ---
Date of Service November 26, 2021 Assessment & Plan (1) Hepatic encephalopathy: Plan: -Acute hepatic encepahalopathy resolved as pt has had reliable bowel movements -Ammonia noted to be 218 now down after treatment with her typical lactulose dosing, patient has a long history of medical non-complicance -Head CT negative for acute changes -patient awake alert able eat food (2) UTI (urinary tract infection): Plan: -Patient was noted to have VRE UTI on prior admission -pt has grown esbl Klebsiella will start ertapenem in preparation of home use, will complete 14 days course (3) Cirrhosis: Plan: -See Hepatic encephalopathy -Continue CARE CONNECTOR lactulose -Continue Rifaximin -Continue Amiloride (4) Adrenal insufficiency: Plan: -Continue CARE CONNECTOR Hydrocortisone -No clinical need for stress hydrocortisone at this time (5) Diabetes mellitus: Plan: -Will start with q6h accu checks -Correction factor of 30 and Carb ration of 12 when eating (6) Tardive dyskinesia: Plan: -Continue topiramte, ropinirole, oxcarbazepine, Keppra and Benztropine (7) Depression: Plan: Continue Sertraline 50 mg daily (8) Dyslipidemia: Plan: -CARE CONNECTOR statin Admission and Anticipated Discharge Date Admission Date: November 23, 2021 Subjective pt seems back to baseline, was not eating well prior to arrival that maybe associated wit low blood glucose, ammonia has normalized uti is now Klebsiella snesitive to penems, starting ertapenem pts is unable to take the patient home on 11/26/21 Review of Systems Review of Systems: Mild distress and fatigue patient is chronically ill has tardive dyskinesia and some baseline weakness no headache, no visual changes no speech or swallowing issues no chest pain, pressure or palpitations no shortness of breath, cough or wheezes no abdominal pain, nausea or vomiting, diarrhea or constipation no dysuria, hematuria or frequency no focal joint pain or swelling no back pain, CVA tenderness or radicular pain no bruising, bleeding or rashes no focal signs of weakness or numbness or altered sensation no complaints of anxiety or depression.. Physical Exam Physical Exam: The patient appeared stable but chronically ill Vital signs as documented. Lungs are clear to auscultation and appear unlabored Cardiac exam, Rhythm is regular.. No murmurs, rubs or gallops. Abdominal exam reveals normal bowel sounds, soft non tender, no masses Extremities are nonedematous and both pedal pulses are normal. Neurologic exam is alert and oriented, no focal loss of strength or sensation dyskinetic movements are present but typical for her Skin is without bruises or rashes Psychologically is without concerns for anxiety or depression. Results & Data Results & Data ([facility]) Vital Signs (Past 12 Hours) Vital Signs Temp Pulse Resp BP Pulse Ox O2 Del Method 11/26/21 08:47 98.2 F 75 18 120/77 96 Room Air PG Care Time/CCT Total # of Minutes Spent Total Time Spent with Patient: Total time spent is greater than 50% in coordination of care (as documented) at patient's floor/unit and/or counseling patient: Coding Level of Care Code 31122 Subseq Hosp Care Lvl 2 Diagnoses Hepatic encephalopathy K72.90 UTI (urinary tract infection) N30.00 Hematuria presence: without hematuria Urinary tract infection type: acute cystitis Cirrhosis K74.60 Adrenal insufficiency E27.40 Diabetes mellitus E11.9 Tardive dyskinesia G24.01 Depression F32.9 Dyslipidemia E78.5 (1) UTI (urinary tract infection) Hematuria presence: without hematuria Urinary tract infection type: acute cystitis Qualified Code(s): N30.00 - Acute cystitis without hematuria
[2021-11-26] MEDS: ZINC SULFATE 220 MG CAPSULE PO SCH (13:03)
[2021-11-26] MEDS: CHOLECALCIFEROL 1,000 UNITS 25 MCG TAB PO SCH (13:03)
[2021-11-26] MEDS: CALCIUM CARBONATE 1250MG TAB PO SCH (13:03)
[2021-11-26] MEDS: ADVANCED PROBIOTIC 1250 MG CAPSULE PO SCH (13:03)
[2021-11-26] MEDS: ASCORBIC ACID 500 MG TAB PO SCH (13:03)
[2021-11-26] MEDS: TOCOPHERYL, DL-ALPHA 400 UNITS 180 MG CAP PO SCH (13:03)
[2021-11-26] MEDS: VITAMIN B COMPLEX TAB PO SCH (13:03)
[2021-11-26] MEDS: ERTAPENEM SODIUM 1,000 MG in SYRINGE 0 ML IV SCH (15:40)
--- NOTE | 2021-11-26 17:41 | Discharge Summary ---
Date of Service November 26, 2021 Admission HPI Per Admitting Provider 55 year old female with multiple recent admissions to [facility] with a PMH significant for Nonalcoholic fatty liver disease with hepatic encephalopathy, adrenal insufficiency, DM II, tardive dyskinesia/parkinsonian symptoms,, and current UTI who presented to the [facility] ED on 11/23/21 with a chief complaint of letheragy and confusion. Per chart review, the patient was recently discharged from [facility] 11/20/21 for ESBL Klebsiella and VRE UTI. After she was initially treated for the ESBL Klebsiella UTI the patient again developed UTI symptoms. ID was consulted and recommended not treating her for further ESBL Klebsiella UTI's as she is chronically colonized. Regarding the VRE UTI, she was started on a 7 day course of Daptomycin, for which she was supposed to complete outpatient at the [facility]. In the ED the patient was given 30 gm PO lactulose. At the time of the exam the patient was sleeping. I was able to wake her with light touch and calling her name. She appeared confused at the time of the exam and was only oriented to self. History was unable to be obtained due to the patient's current mental status. Principal Diagnosis acute hepatic encephalopathy esbl Klebsiella UTI poa diabetes with poor control Discharge Exam The patient appeared stable Vital signs as documented. Lungs are clear to auscultation and appear unlabored Cardiac exam, Rhythm is regular.. No murmurs, rubs or gallops. Abdominal exam reveals normal bowel sounds, soft non tender, no masses Extremities are nonedematous and both pedal pulses are normal. Neurologic exam is alert and oriented, has dyskinesia baseline Skin is without bruises or rashes Psychologically is without concerns for anxiety or depression. Discharge Data Allergies Allergy/AdvReac Type Severity Reaction Status Date / Time metoclopramide Allergy Severe SEIZURES Verified 11/23/21 19:25 metronidazole Allergy Severe SEIZURE Verified 11/23/21 19:25 tramadol Allergy Severe SEIZURES Verified 11/23/21 19:25 amoxicillin Allergy Intermediate SEE COMMENT Verified 11/23/21 19:25 baclofen Allergy Intermediate RASH Verified 11/23/21 19:25 butalbital Allergy Intermediate HIVES Verified 11/23/21 19:25 dicyclomine Allergy Intermediate HIVES Verified 11/23/21 19:25 nitrofurantoin Allergy Intermediate HIVES/RASH/SEVERE Verified 11/23/21 19:25 [From Macrobid] ITCHING pollen extracts Allergy Intermediate Hives Verified 11/23/21 19:25 Sulfa (Sulfonamide Allergy Intermediate CAUSES Verified 11/23/21 19:25 Antibiotics) BLACK STOOLS Tetracyclines Allergy Intermediate DOXYCYCLINE Verified 11/23/21 19:25 -HIVES adhesive Allergy Mild RASH, Verified 11/23/21 19:25 DUODERM=RED,ITCHY celecoxib Allergy Mild HIVES Verified 11/23/21 19:25 sulindac Allergy Mild ALLERGY Verified 11/23/21 19:25 LISTED "CLONDORAL"--HIVES Cephalosporins AdvReac Severe TURNS Verified 11/23/21 19:25 STOOL VERY DARK paroxetine [From Paxil] AdvReac Severe Vomiting Verified 11/23/21 19:25 dextromethorphan AdvReac Mild Vomiting Verified 11/23/21 19:25 Consultations 11/23/21 16:25 ED Decision to Admit Stat Ordered Studies 11/23/21 14:13 CT head/brain wo con Stat 11/24/21 08:58 US Renal Bladder [US renal/blad retro comp] Routine Hospital Course (1) Hepatic encephalopathy: -Acute hepatic encepahalopathy resolved as pt has had reliable bowel movements -Ammonia noted to be 218 now down after treatment with her typical lactulose dosing, patient has a long history of medical non-complicance -Head CT negative for acute changes -patient awake alert able eat food (2) UTI (urinary tract infection): -Patient was noted to have VRE UTI on prior admission -pt has grown esbl Klebsiella will start ertapenem in preparation of home use, will complete 14 days course (3) Cirrhosis: -See Hepatic encephalopathy -Continue PRODUCTION OR PLANT ENGINEER lactulose -Continue Rifaximin -Continue Amiloride (4) Adrenal insufficiency: -Continue PRODUCTION OR PLANT ENGINEER Hydrocortisone -No clinical need for stress hydrocortisone at this time (5) Diabetes mellitus: -Will start with q6h accu checks -Correction factor of 30 and Carb ration of 12 when eating (6) Tardive dyskinesia: -Continue topiramte, ropinirole, oxcarbazepine, Keppra and Benztropine (7) Depression: Continue Sertraline 50 mg daily (8) Dyslipidemia: -PRODUCTION OR PLANT ENGINEER statin Total Time Total Time Spent Total Time Spent (In Minutes): It required greater than 30 minutes to prepare this patient for discharge Discharge Plan Discharge Items Patient Disposition: Home - Self-Care Reason For Visit: CONFUSION Discharge Diagnosis: acute hepatic encephalopathy esbl Klebsiella UTI poa diabetes with poor control Activity: Resume your previous activity Non-emergency contact: Primary Care Provider Call non-emergency contact if: your symptoms worsen and you have a fever Follow-up/Referrals: Geri Mcgraw PA-C [Primary Care Provider] - 12/05/21 9:10 am Diet: Regular Addtl Attending Provider Instructions: please go to the Medical treatment unit daily for your antibiotic please take your lactulose to have at least 2 good bowel movements a day Pending Studies at Discharge: No Stand-Alone Forms: My [facility], Smoking Cessation Medications and DC Order Prescriptions: New ertapenem 1 gram recon soln 1 g IV DAILY Qty: 13 0RF Continued albuterol sulfate 90 mcg/actuation HFA aerosol inhaler 2 puff inhalation Q4H PRN (Reason: shortness of breath) Qty: 1 3RF ropinirole 0.25 mg tablet 0.25 mg PO BID 90 Days Qty: 180 1RF (DME) pen needle, diabetic [BD Ultra-Fine Sheridan Pen Needle] 32 gauge x 5/32" needle See Rx Instructions .Route Qty: 400 3RF Rx Instructions: use 4 x daily insulin aspart U-100 [Novolog Flexpen U-100 Insulin] 100 unit/mL (3 mL) insulin pen 15 - 25 unit SQ TID MDD 60 units Qty: 30 5RF Rx Instructions: per sliding scale, do not exceed 60 units in 24 hr ipratropium-albuterol 0.5 mg-3 mg(2.5 mg base)/3 mL solution for nebulization 3 ml INH QID PRN (Reason: wheezing) Qty: 90 0RF teriparatide 20 mcg/dose (620mcg/2.48mL) pen injector 20 mcg subcut PM Qty: 7.44 0RF benztropine 1 mg tablet 1 mg PO TID 30 Days Qty: 90 5RF Xifaxan 550 mg tablet 550 mg PO BID Qty: 60 5RF topiramate 100 mg tablet 100 mg PO BID Qty: 60 5RF oxcarbazepine 300 mg tablet See Rx Instructions .ROUTE .COMPLEX Qty: 90 5RF Rx Instructions: 300 mg PO take one tablet in the morning, then take two tablets (600mg) in the evening; levothyroxine [Euthyrox] 50 mcg tablet 50 mcg PO QAM Qty: 30 2RF omeprazole 40 mg capsule,delayed release(DR/EC) 40 mg PO QAM Qty: 90 1RF hydrocortisone 10 mg tablet See Rx Instructions .ROUTE .COMPLEX Qty: 45 3RF Rx Instructions: take 10 mg in the morning and 5 mg every evening; levetiracetam 750 mg tablet 1,500 mg PO BID 30 Days Qty: 120 5RF cholecalciferol (vitamin D3) [Vitamin D3] 25 mcg (1,000 unit) capsule 5,000 unit PO QDL Label Comments: TAKES IN AFTERNOON ascorbate calcium (vitamin C) 500 mg tablet 500 mg PO QDL vitamin E (dl, acetate) 180 mg (400 unit) capsule 180 mg PO Q OTHER DAY (DME) OneTouch Verio test strips Strip See Rx Instructions .Route Qty: 50 5RF Rx Instructions: Test blood sugars once a day epinephrine [EpiPen 2-Garret] 0.3 mg/0.3 mL auto-injector 0.3 mg IM Q10M PRN (Reason: Anaphylaxis) lecithin 1,200 mg capsule 1,200 mg PO QDL cranberry 400 mg capsule 400 mg PO BIDM Rx Instructions: administer with a meal multivitamin [Multiple Vitamins] Tablet 1 tab PO QDL zinc 50 mg Tablet 50 mg PO QDL vitamin A 8,000 unit Capsule 8,000 unit PO QDL vitamin B complex Tablet 1 tab PO QDL Probiotic 3 billion cell Capsule 1 mmu cells PO QDL calcium carbonate 500 mg calcium (1,250 mg) Tablet 500 mg PO QDL Blue-Emu Cream 1 applic topical HS famotidine 20 mg Tablet 20 mg PO HS Qty: 30 0RF lactulose 20 gram/30 mL Solution 30 g PO QID Qty: 3000 0RF Rx Instructions: please dispense 5400 mL (which would equal a 30 day supply) amiloride 5 mg Tablet 5 mg PO DAILY Qty: 30 0RF Tresiba FlexTouch U-100 100 unit/mL (3 mL) insulin pen 30 unit subcut QAM Qty: 15 1RF pravastatin 20 mg tablet 20 mg PO QAM Label Comments: this is a new medication per patients melatonin 5 mg tablet 10 mg PO HS Qty: 1 0RF Rx Instructions: ifgd-ocz-erknuog magnesium oxide 400 mg (241.3 mg magnesium) tablet 400 mg PO BID Qty: 0 0RF acetaminophen [Tylenol Extra Strength] 500 mg tablet 500 mg PO BID PRN (Reason: Pain) diclofenac sodium [Voltaren Arthritis Pain] 1 % gel 4 g EXT QID PRN (Reason: Pain) sertraline 50 mg tablet 50 mg PO DAILY Refresh Optive Advanced 0.5-1-0.5 % drops 1 drops OPB QID Rx Instructions: PER PT'S , "USUALLY USES AT HS". nystatin 100,000 unit/mL Suspension 5 ml PO QID 5 Days Qty: 100 0RF Qulipta 30 mg tablet 30 mg PO DAILY PRN (Reason: Migraine Headache) Discontinued promethazine 25 mg tablet 25 mg PO Q8H PRN (Reason: nausea and vomiting) Qty: 10 0RF fexofenadine 60 mg Tablet 60 mg PO QAM acetaminophen [Tylenol Extra Strength] 500 mg Tablet 1,000 mg PO HS Qty: 0 0RF daptomycin 500 mg recon soln 500 mg IV DAILY Qty: 5 0RF Rx Instructions: administer over 30 mins Discharge Orders: Discharge Order (Routine); Ordered 11/26/21 Ordered By: Erick Rice Admission Data Admit Date/Time: 11/23/21 17:32 Attending Provider: Erick Rice Admit Provider: Law Freeman Primary Care Provider: Geri Mcgraw Other Providers: Law Freeman Other Interventions: Discharge Summary Assessment (RN) Last Done: 11/26/21 13:41 Coding Level of Care Code D/C DAY MANAGEMENT >30 MINS Diagnoses Hepatic encephalopathy K72.90 UTI (urinary tract infection) N30.00 Hematuria presence: without hematuria Urinary tract infection type: acute cystitis Cirrhosis K74.60 Adrenal insufficiency E27.40 Diabetes mellitus E11.9 Tardive dyskinesia G24.01 Depression F32.9 Dyslipidemia E78.5
== END 2021-11-26 18:57 | disposition home or self-care (01) ==
LOC: ED 12:43 → EDINP 17:32 → SUATTDRO 17:32 → INTOOBSV 17:32 → 3N 20:39